=== PATIENT | male | born 1955 | race Caucasian/White ===

== ENCOUNTER 2017-12-17 14:53 | Outpatient (RCR) | payer BC, MEDICARE, SELFPAY ==
[2017-12-17 15:39] VITALS: BP 136/75; PULSE 82; RESP 16; TEMP 35.9; BMI 38.7
--- NOTE | 2017-12-17 16:53 | HP.PCM_ITS ---
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 Status: Acute Current Visit: Yes Code(s): L97.912 - Non-pressure chronic ulcer of unspecified part of right lower leg with fat layer exposed Comment: right lateral thigh (3) COPD (chronic obstructive pulmonary disease) Status: Acute Current Visit: Yes Code(s): J44.9 - Chronic obstructive pulmonary disease, unspecified (4) Hyperlipidemia Status: Acute Current Visit: Yes Code(s): E78.5 - Hyperlipidemia, unspecified (5) Hypothyroidism Status: Acute Current Visit: Yes Code(s): E03.9 - Hypothyroidism, unspecified (6) Tobacco abuse Status: Acute Current Visit: Yes Code(s): Z72.0 - Tobacco use History of Present Illness Date of Service: 12/17/17 Chief Complaint: Pressure ulcer to sacral region midline ?2 months and open blistered areas to right thigh intermittently for a couple of years History of Wound: This is a 62-year-old white male who presents to the wound healing center today with complaints of pressure ulcer to midline sacral region and intermittent blisters that open up on his right posterior thigh. He has a past medical history as listed above. The patient states that after having a recent back surgery and right knee arthroscopy, he has not been as ambulatory as before and has been spending the majority of his time in his reclining chair. He states that approximately 2 months ago he noted a sore area causing him pain on his sacral region and has been applying triple antibiotic ointment and an antiseptic rinse given by his PCP on it. He also complains of intermittent blistering that has happened on his buttocks and thigh area on and off for the past couple of years. He states that he has multiple sites that will open up as a blister, drain pus, and then heal over. He has not been seen by a national service officer for evaluation of this. He currently has 1 open blister on his right lateral thigh and states that pus was previously draining out of it but is no longer draining at this time. He denies any signs of systemic infection at this time. He denies any fever, chills, nausea, vomiting, shortness of breath, chest pain or pressure, syncope or presyncopal episode. Past Medical History Allergies/Adverse Reactions: Allergies dust Allergy (Uncoded 12/17/17 16:02) Unknown pollen Allergy (Uncoded 12/17/17 16:02) Unknown Home Medications: Ambulatory Orders Medication Instructions Recorded Acetaminophen [Tylenol] 650 mg PO TID 12/17/17 Baclofen [Lioresal] 10 mg PO TID 12/17/17 Esomeprazole Mag Trihydrate 40 mg PO DAILY 12/17/17 [Nexium] Fenofibrate [Tricor] 145 mg PO DAILY 12/17/17 Levothyroxine [Synthroid] 125 mcg PO DAILY 12/17/17 Tamsulosin HCl [Flomax] 0.4 mg PO BID 12/17/17 Smoking Status: Current every day smoker Review of Systems Constitutional: Denies: Chills, Fever, Weight Change Eyes: Denies: Pain, Vision Change HEENT: Denies: Difficulty Hearing, Difficulty Swallowing, Sinus Congestion Cardiovascular: Denies: Chest Pain, Palpitations Respiratory: Denies: Cough, Shortness of Breath Gastrointestinal: Denies: Diarrhea, Nausea, Vomiting Genitourinary: Denies: Dysuria, Hematuria Musculoskeletal: Reports: - - difficulty with ambulation d/t back pain and knee pain Skin: Reports: Wounds - see hpi Psychiatric: Denies: Anxiety, Depression Endocrine: Denies: Heat/ Cold Intolerance, Polydipsia, Polyuria Hematologic/ Lymphatic: Denies: Easy Bruising, Easy Bleeding - Physical Exam Vital Signs Temp Pulse Resp BP 96.6 F L 82 16 136/75 H 12/17/17 15:39 12/17/17 15:39 12/17/17 15:39 12/17/17 15:39 General: Alert, Oriented x3, Cooperative, No apparent distress HEENT: PERRLA, EOMI Lungs: Clear to auscultation, Normal air movement, No rhonchi, No wheeze, No rales, Diminished - in bases Cardiovascular: Regular rate, Regular Rhythm, Normal S1, Normal S2 Abdomen: Bowel Sounds Present, Soft, Non Tender, Non-Distended Extremities: No clubbing, No cyanosis, No edema, Peripheral Pulses Normal Skin: No rashes, No breakdown, Ulcer/ Wound - ulcer present midline sacral region stage 2 with adherant slough, no signs of infection at this time, no pus or drainage or foul smell noted, open blistered area to right lateral thigh, no purulent drainage, no erythema or signs of infection at this time. Wound Measurements and Assessment WC - Nurse 1 - General Ulcer Measurement Start: 12/17/17 15:39 Freq: Status: Active Protocol: Activity Type Activity Date Activity User E-Sign Co-Sign Detail Recorded Client Recorded Date Recorded By Document 12/17/17 15:39 [facility] [id number] 12/17/17 15:55 [facility] 12/17/17 15:39 Wound Center Nurse 1 [Ulcer Assessment] #3 right gluteal fold -Combined with other wound No -Current Size (cm) - Length 0.1 -Current Size (cm) - Width 0.1 -Current Size (cm) - Depth 0.1 -Total Square Cm 0.01 -Date of Last Picture (Recall this 12/17/17 field) -Photo Taken Yes -Epithelialization None Present -Tunneling No -Undermining/Tunneling No -Circular Undermining No -Exudate Amt Small (1-33%) -Exudate Type Purulent -Wound Margin Indistinct, Non -Visible -Granulation Amt None Present (0 %) -Granulation Quality N/A -Slough/Fibrin Yes -Necrosis Amt Large (67-100%) -Necrotic Tissue Type Adherent Slough -Texture (Michelle-wound Skin Appearance) Assessed Localized Edema -Moisture (Michelle-wound Skin Appearance Assessed ) Weeping -Color (Michelle-wound Skin Appearance) No Abnormality Assessed -Temperature (Michelle-wound Skin No Abnormality Appearance) (Pt Warm) -Tenderness on Palpation (Michelle-wound No Skin Appearance) -Ulcer Cleansing Rinsed/ Irrigated with Saline -Foul Odor after Cleansing No -Anesthetic Used 4% Lidocaine Solution #1 sacral ulcer -Combined with other wound No -Current Size (cm) - Length 1.0 -Current Size (cm) - Width 0.2 -Current Size (cm) - Depth 0.2 -Total Square Cm 0.20 -Date of Last Picture (Recall this 12/17/17 field) -Photo Taken Yes -Epithelialization None Present -Tunneling No -Undermining/Tunneling No -Circular Undermining No -Exudate Amt Small (1-33%) -Exudate Type Serosanguineous -Wound Margin Flat & Intact -Granulation Amt None Present (0 %) -Granulation Quality N/A -Slough/Fibrin Yes -Necrosis Amt Large (67-100%) -Necrotic Tissue Type Adherent Slough -Structure Exposed N/A -Texture (Michelle-wound Skin Appearance) Assessed Scarring -Moisture (Michelle-wound Skin Appearance Assessed ) Maceration -Color (Michelle-wound Skin Appearance) No Abnormality Assessed -Temperature (Michelle-wound Skin No Abnormality Appearance) (Pt Warm) -Tenderness on Palpation (Michelle-wound No Skin Appearance) -Ulcer Cleansing Rinsed/ Irrigated with Saline -Foul Odor after Cleansing No -Anesthetic Used 4% Lidocaine Solution #2 right hip -Combined with other wound No -Current Size (cm) - Length 0.1 -Current Size (cm) - Width 0.4 -Current Size (cm) - Depth 0.2 -Total Square Cm 0.04 -Date of Last Picture (Recall this 12/17/17 field) -Photo Taken Yes -Epithelialization None Present -Tunneling No -Undermining/Tunneling No -Circular Undermining No -Exudate Amt Small (1-33%) -Exudate Type Serosanguineous -Wound Margin Flat & Intact -Granulation Amt Large (67-100%) -Granulation Quality Red -Slough/Fibrin Yes -Necrosis Amt Small (1-33%) -Necrotic Tissue Type Adherent Slough -Structure Exposed N/A -Texture (Michelle-wound Skin Appearance) Assessed Scarring -Moisture (Michelle-wound Skin Appearance No Abnormality ) Assessed -Color (Michelle-wound Skin Appearance) No Abnormality Assessed -Temperature (Michelle-wound Skin No Abnormality Appearance) (Pt Warm) -Tenderness on Palpation (Michelle-wound No Skin Appearance) -Ulcer Cleansing Rinsed/ Irrigated with Saline -Foul Odor after Cleansing No -Anesthetic Used 4% Lidocaine Solution [Edema Assessment] -Lower Limb Edema Present No WC - Nurse 2 - General Ulcer CM Notes Start: 12/17/17 15:39 Freq: Status: Active Protocol: Activity Type Activity Date Activity User E-Sign Co-Sign Detail Recorded Client Recorded Date Recorded By Document 12/17/17 16:21 [id number] 12/17/17 16:32 12/17/17 16:21 Wound Center Nurse 2 [Procedure/Treatment] #3 right gluteal fold -Time 16:22 #1 sacral ulcer -Time 16:22 -Correct Patient Yes -Correct Side, Site, Position Yes -Correct Procedure Yes -Procedure Performed Yes -Type of Procedure Debridement -Clinical Debridement Subcutaneous -Post Debridement Size (cm) - Length 1 -Post Debridement Size (cm) - Width 0.4 -Post Debridement Size (cm) - Depth 0.3 -Total Square Cm 0.4 -Wound/Ulcer Outcome Not Healed -Ulcer Cleansing Not Cleansed -Foul Odor after Cleansing No -Bioengineered Tissue No -Bleeding Controlled with Pressure -Treatment Response Procedure Tolerated Well #2 right hip -Time 16:22 -Correct Patient Yes -Correct Side, Site, Position Yes -Correct Procedure Yes -Procedure Performed Yes -Type of Procedure Debridement -Clinical Debridement Subcutaneous -Post Debridement Size (cm) - Length 0.4 -Post Debridement Size (cm) - Width 0.4 -Post Debridement Size (cm) - Depth 0.6 -Total Square Cm 0.16 -Wound/Ulcer Outcome Not Healed -Ulcer Cleansing Not Cleansed -Foul Odor after Cleansing No -Bioengineered Tissue No -Bleeding Controlled with Pressure -Treatment Response Procedure Tolerated Well [See Physician Procedure note for Specifics] Pain Scale: 0-10 Numeric [Pain] -Is Patient Pain Free? Yes Musculoskeletal: Tenderness - back and knee Neurological: Neuro grossly intact Psych/Mental Status: Normal Affect, Appropriate, Alert and oriented to time, place, person, mood and affect Debridement Note Post-Debridement Measurements/Treatment WC - Nurse 2 - General Ulcer CM Notes Start: 12/17/17 15:39 Freq: Status: Active Protocol: Activity Type Activity Date Activity User E-Sign Co-Sign Detail Recorded Client Recorded Date Recorded By Document 12/17/17 16:21 [id number] 12/17/17 16:32 12/17/17 16:21 Wound Center Nurse 2 #3 right gluteal fold -Time 16:22 #1 sacral ulcer -Time 16:22 -Correct Patient Yes -Correct Side, Site, Position Yes -Correct Procedure Yes -Procedure Performed Yes -Type of Procedure Debridement -Clinical Debridement Subcutaneous -Post Debridement Size (cm) - Length 1 -Post Debridement Size (cm) - Width 0.4 -Post Debridement Size (cm) - Depth 0.3 -Total Square Cm 0.4 -Wound/Ulcer Outcome Not Healed -Ulcer Cleansing Not Cleansed -Foul Odor after Cleansing No -Bioengineered Tissue No -Bleeding Controlled with Pressure -Treatment Response Procedure Tolerated Well #2 right hip -Time 16:22 -Correct Patient Yes -Correct Side, Site, Position Yes -Correct Procedure Yes -Procedure Performed Yes -Type of Procedure Debridement -Clinical Debridement Subcutaneous -Post Debridement Size (cm) - Length 0.4 -Post Debridement Size (cm) - Width 0.4 -Post Debridement Size (cm) - Depth 0.6 -Total Square Cm 0.16 -Wound/Ulcer Outcome Not Healed -Ulcer Cleansing Not Cleansed -Foul Odor after Cleansing No -Bioengineered Tissue No -Bleeding Controlled with Pressure -Treatment Response Procedure Tolerated Well Pain Scale: 0-10 Numeric Is Patient Pain Free? Yes Wound debrided: stage 2 sacral pressure ulcer Type of Debridement: Excisional debridement Anesthesia Used: 5% Lidocaine Gel Depth: Down to and including healthy tissue, in the subcutaneous layer Percentage of wound debrided: 100 Instrument Used: 5mm curette Tissue Removed: slough and devitalized tissue Severity: Fat Layer Exposed Amount of bleeding with debridement: Mild Bleeding Controlled with: Pressure Patient tolerated procedure well - Additional Wound Wound debrided: right lateral thigh ulceration Laterality: Right Type of Debridement: Excisional debridement Anesthesia Used: 5% Lidocaine Gel Depth: Down to and including healthy tissue, in the subcutaneous layer Percentage of wound debrided: 100 Instrument Used: 3mm curette Tissue Removed: slough and devitalized tissue Severity: Fat Layer Exposed Amount of bleeding with debridement: Mild Bleeding Controlled with: Pressure Patient tolerated procedure: Patient tolerated procedure well Assessment/Plan Active Problems Stage II pressure ulcer of sacral region (Acute) 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 A subcutaneous debridement was performed today. The patient tolerated the procedure well. The patients wound care will consist of: Applying Nanda to both ulcerations with optifoam over the sacral pressure ulcer. Wound cultures were collected from the thigh ulcer. Baseline bloodwork will be held off at this time. Patient educated on the importance of diet on wound healing and instructed to increase protein and vitamin C intake. Discussed with patient the importance of offloading and different offloading interventions to do to remove pressure from the sacral region. Patient verbalized understanding. Patient is going to follow-up with dermatology regarding his chronic blisters that open in his buttock area and thigh and groin area at times. Differentials include hidradenitis suppurativa. Patient will follow up at wound healing center in one week or sooner if needed. This note was generated with [employer] dictation software. It may contain incorrect words, spelling, and punctuation that were not noted in checking the note before signing. Code Visit Office Visits / Consults: [id number] OV L4 New [id number]: [id number] Lillian subq tissue 20 sq cm/<
== END 2017-12-27 23:59 ==
LOC: WC 14:53
PROVIDERS: Visit Provider Nurse Practitioner Family
DX: L89.152 Pressure ulcer of sacral region, stage 2 (principal); J44.9 Chronic obstructive pulmonary disease, unspecified; E78.5 Hyperlipidemia, unspecified; E03.9 Hypothyroidism, unspecified; F17.200 Nicotine dependence, unspecified, uncomplicated; L97.112 Non-pressure chronic ulcer of right thigh with fat layer exposed; Z79.899 Other long term (current) drug therapy
CPT/HCPCS: 11042; 87070; 87075; 87205; 99205; G0463

== ENCOUNTER 2018-01-21 15:30 | Outpatient (RCR) | payer BC, MEDICARE, SELFPAY ==
[2017-12-28 01:38] VITALS: BP 136/75; PULSE 82; RESP 16; TEMP 35.9
[2017-12-31 16:08] VITALS: BP 129/72; PULSE 78; RESP 18; TEMP 36.6
--- NOTE | 2017-12-31 20:22 | PCM.WC.PN ---
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 Status: Acute Code(s): L97.522 - Non-pressure chronic ulcer of other part of left foot with fat layer exposed (2) Stage II pressure ulcer of sacral region Status: Acute Code(s): L89.152 - Pressure ulcer of sacral region, stage 2 (3) COPD (chronic obstructive pulmonary disease) Status: Acute Code(s): J44.9 - Chronic obstructive pulmonary disease, unspecified (4) Hyperlipidemia Status: Acute Code(s): E78.5 - Hyperlipidemia, unspecified (5) Hypothyroidism Status: Acute Code(s): E03.9 - Hypothyroidism, unspecified (6) Tobacco abuse Status: Acute Code(s): Z72.0 - Tobacco use Type of Wound Chief Complaint: Pressure ulcer to sacral region midline ?2 months and open blistered areas to right thigh intermittently for a couple of years, left lower extremity dorsal foot nonhealing ulcer times a couple months History of Wound: This is a 62-year-old white male who presents to the wound healing center today with complaints of pressure ulcer to midline sacral region and intermittent blisters that open up on his right posterior thigh. He has a past medical history as listed above. The patient states that after having a recent back surgery and right knee arthroscopy, he has not been as ambulatory as before and has been spending the majority of his time in his reclining chair. He states that approximately 2 months ago he noted a sore area causing him pain on his sacral region and has been applying triple antibiotic ointment and an antiseptic rinse given by his PCP on it. He also complains of intermittent blistering that has happened on his buttocks and thigh area on and off for the past couple of years. He states that he has multiple sites that will open up as a blister, drain pus, and then heal over. He has not been seen by a assisted sales representative for evaluation of this. He currently has 1 open blister on his right lateral thigh and states that pus was previously draining out of it but is no longer draining at this time. He denies any signs of systemic infection at this time. He denies any fever, chills, nausea, vomiting, shortness of breath, chest pain or pressure, syncope or presyncopal episode. Progress of Wound: Patient's pressure ulcer stage II on his coccyx is improving in size, he did miss his last appointment. He does have a new nonhealing ulcer on his left lower extremity on the dorsal foot, he states that this is been going on for months and he forgot to bring this up during his last visit, he is unsure how it happened and has not been using anything for wound care. - Physical Exam Vital Signs Temp Pulse Resp BP 97.8 F 78 18 129/72 H 12/31/17 16:08 12/31/17 16:08 12/31/17 16:08 12/31/17 16:08 General: Alert, Oriented x3, Cooperative, No apparent distress HEENT: Atraumatic Cardiovascular: Regular rate Extremities: No clubbing, No cyanosis, No edema Skin: Ulcer/ Wound - Ulcer present stage II on coccyx with adherent slough, no signs of infection, right hip almost entirely healed, no signs of infection, left lower extremity dorsal foot nonhealing ulcer with adherent slough, wound bed is slightly erythematous less than 0.2 cm extending from the wound edges, mild serous discharge, no other signs of infection at this time. Neurological: Neuro grossly intact Psych/Mental Status: Normal Affect, Appropriate, Alert and oriented to time, place, person, mood and affect Debridement Note Post-Debridement Measurements/Treatment WC - Nurse 2 - General Ulcer CM Notes Start: 12/31/17 16:08 Freq: Status: Active Protocol: Activity Type Activity Date Activity User E-Sign Co-Sign Detail Recorded Client Recorded Date Recorded By Document 12/31/17 16:45 [id number] 12/31/17 16:53 12/31/17 16:45 Wound Center Nurse 2 #3- LT LAT FOOT -Time 16:45 -Correct Patient Yes -Correct Side, Site, Position Yes -Correct Procedure Yes -Procedure Performed Yes -Type of Procedure Debridement -Clinical Debridement Subcutaneous -Post Debridement Size (cm) - Length 0.9 -Post Debridement Size (cm) - Width 0.6 -Post Debridement Size (cm) - Depth 0.8 -Total Square Cm 0.54 -Wound/Ulcer Outcome Not Healed -Ulcer Cleansing Not Cleansed -Foul Odor after Cleansing No -Bioengineered Tissue No -Bleeding Controlled with Pressure -Treatment Response Procedure Tolerated Well #1 sacral ulcer -Time 16:45 -Correct Patient Yes -Correct Side, Site, Position Yes -Correct Procedure Yes -Procedure Performed Yes -Type of Procedure Debridement -Clinical Debridement Subcutaneous -Post Debridement Size (cm) - Length 0.7 -Post Debridement Size (cm) - Width 0.3 -Post Debridement Size (cm) - Depth 0.2 -Total Square Cm 0.21 -Wound/Ulcer Outcome Not Healed -Ulcer Cleansing Not Cleansed -Foul Odor after Cleansing No -Bioengineered Tissue No -Treatment Response Procedure Tolerated Well #2 right hip -Time 16:51 -Correct Patient No -Correct Side, Site, Position No -Correct Procedure No -Procedure Performed No -Post Debridement Size (cm) - Length 0.1 -Post Debridement Size (cm) - Width 0.1 -Post Debridement Size (cm) - Depth 0.1 -Total Square Cm 0.01 -Wound/Ulcer Outcome Not Healed -Ulcer Cleansing Not Cleansed -Foul Odor after Cleansing No -Bioengineered Tissue No Pain Scale: 0-10 Numeric Is Patient Pain Free? Yes Wound debrided: Stage II pressure ulcer coccyx Type of Debridement: Excisional debridement Anesthesia Used: 5% Lidocaine Gel Depth: in the subcutaneous layer Percentage of wound debrided: 100 Instrument Used: 3mm curette Tissue Removed: Slough and devitalized tissue Severity: Fat Layer Exposed Amount of bleeding with debridement: Mild Bleeding Controlled with: Pressure Patient tolerated procedure well - Additional Wound Wound debrided: Nonhealing ulcer left lower extremity dorsal foot Laterality: Left Type of Debridement: Excisional debridement Anesthesia Used: 5% Lidocaine Gel Depth: in the subcutaneous layer Percentage of wound debrided: 100 Instrument Used: 3mm curette Tissue Removed: Slough and devitalized tissue Severity: Fat Layer Exposed Amount of bleeding with debridement: Mild Bleeding Controlled with: Pressure Patient tolerated procedure: Patient tolerated procedure well Assessment/Plan Assessment: see above diagnoses Plan: The patient was seen and examined at the wound center today and was updated on the plan of care. A subcutaneous debridement was performed today. The patient tolerated the procedure well. The patients wound care will consist of: Applying Nanda to both ulcerations with optifoam over the sacral pressure ulcer. Wound cultures were collected from the thigh ulcer previously and negative, repeat cultures were ordered to the new left dorsal foot ulcer. Baseline bloodwork will be held off at this time. Hold off on vascular at this time. Patient educated on the importance of diet on wound healing and instructed to increase protein and vitamin C intake. Discussed with patient the importance of offloading and different offloading interventions to do to remove pressure from the sacral region. Patient verbalized understanding. Patient is going to follow-up with dermatology regarding his chronic blisters that open in his buttock area and thigh and groin area at times. Differentials include hidradenitis suppurativa. Patient will follow up at wound healing center in one week or sooner if needed. This note was generated with [employer] dictation software. It may contain incorrect words, spelling, and punctuation that were not noted in checking the note before signing. Code Visit [id number]: [id number] Lillian subq tissue 20 sq cm/<
[2018-01-07 15:48] VITALS: BP 119/71; PULSE 85; RESP 18; TEMP 36.7
--- NOTE | 2018-01-07 19:49 | PCM.WC.PN ---
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 Status: Acute Code(s): L97.522 - Non-pressure chronic ulcer of other part of left foot with fat layer exposed (2) Stage II pressure ulcer of sacral region Status: Acute Code(s): L89.152 - Pressure ulcer of sacral region, stage 2 (3) COPD (chronic obstructive pulmonary disease) Status: Acute Code(s): J44.9 - Chronic obstructive pulmonary disease, unspecified (4) Hyperlipidemia Status: Acute Code(s): E78.5 - Hyperlipidemia, unspecified (5) Hypothyroidism Status: Acute Code(s): E03.9 - Hypothyroidism, unspecified (6) Tobacco abuse Status: Acute Code(s): Z72.0 - Tobacco use Type of Wound Date of Service: 01/07/18 Chief Complaint: Pressure ulcer to sacral region midline ?2 months and open blistered areas to right thigh intermittently for a couple of years, left lower extremity dorsal foot nonhealing ulcer times a couple months History of Wound: This is a 62-year-old white male who presents to the wound healing center today with complaints of pressure ulcer to midline sacral region and intermittent blisters that open up on his right posterior thigh. He has a past medical history as listed above. The patient states that after having a recent back surgery and right knee arthroscopy, he has not been as ambulatory as before and has been spending the majority of his time in his reclining chair. He states that approximately 2 months ago he noted a sore area causing him pain on his sacral region and has been applying triple antibiotic ointment and an antiseptic rinse given by his PCP on it. He also complains of intermittent blistering that has happened on his buttocks and thigh area on and off for the past couple of years. He states that he has multiple sites that will open up as a blister, drain pus, and then heal over. He has not been seen by a fit model for evaluation of this. He currently has 1 open blister on his right lateral thigh and states that pus was previously draining out of it but is no longer draining at this time. He denies any signs of systemic infection at this time. He denies any fever, chills, nausea, vomiting, shortness of breath, chest pain or pressure, syncope or presyncopal episode. Progress of Wound: Patient's pressure ulcer stage II on his sacrum is stable, has not been compliant with offloading or smoking cessation. His nonhealing ulcer on his left lower extremity on the dorsal foot is stable, doign well with the ted. Cultures showed staph, so patient was started on a course of doxy. He does continue to have multiple pinpoint ulcerations on his buttocks and thighs most likely secondary to hidradenitis suppurativa which has been a chronic ongoing issue for him and patient has yet to be evaluated by Derm. He states that at times purulent discharge continues to drain from the sites. - Physical Exam Vital Signs Temp Pulse Resp BP 98.0 F 85 18 119/71 01/07/18 15:48 01/07/18 15:48 01/07/18 15:48 01/07/18 15:48 General: Alert, Oriented x3, Cooperative, No apparent distress HEENT: Atraumatic Cardiovascular: Regular rate Abdomen: Obese Extremities: No clubbing, No cyanosis, Diminished Peripheral Pulses, Edema - generalized BLLE edema Skin: Ulcer/ Wound - Ulceration present left dorsal foot with slough and devitalized tissue present, slightly macerated wound edges, pressure ulcer present mid sacrum, adherent slough present to the wound bed edges, multiple pinpoint ulcerations with deph varying from 0.5-1 cm most likely secondary to hidradenitis suppurativa present right hip and buttocks, no fluctuance or drainage noted at this time Musculoskeletal: No Muscle Wasting Neurological: Neuro grossly intact Psych/Mental Status: Normal Affect, Appropriate, Alert and oriented to time, place, person, mood and affect Debridement Note Post-Debridement Measurements/Treatment WC - Nurse 2 - General Ulcer CM Notes Start: 12/31/17 16:08 Freq: Status: Active Protocol: Activity Type Activity Date Activity User E-Sign Co-Sign Detail Recorded Client Recorded Date Recorded By Document 12/31/17 16:45 CS [id number] 12/31/17 16:53 CS Document 01/07/18 17:19 JS [id number] 01/07/18 17:29 JS 12/31/17 01/07/18 16:45 17:19 Wound Center Nurse 2 #4 R-iSCHIAL ULCER -Time 17:29 -Correct Patient Yes -Correct Side, Site, Position Yes -Correct Procedure Yes -Procedure Performed Yes -Type of Procedure Debridement -Clinical Debridement Subcutaneous -Post Debridement Size (cm) - Length 0.1 -Post Debridement Size (cm) - Width 0.1 -Post Debridement Size (cm) - Depth 1.0 -Total Square Cm 0.01 -Wound/Ulcer Outcome Not Healed -Ulcer Cleansing Rinsed/ Irrigated with Saline -Foul Odor after Cleansing No -Bioengineered Tissue No -Topical Lidocaine (%) 4 -Lidocaine (ml) 5 -Bleeding Controlled with NA -Treatment Response Procedure Tolerated Well #3- LT LAT FOOT -Time 16:45 17:25 -Correct Patient Yes Yes -Correct Side, Site, Position Yes Yes -Correct Procedure Yes Yes -Procedure Performed Yes Yes -Type of Procedure Debridement Debridement -Clinical Debridement Subcutaneous Subcutaneous -Post Debridement Size (cm) - Length 0.9 0.5 -Post Debridement Size (cm) - Width 0.6 0.4 -Post Debridement Size (cm) - Depth 0.8 0.5 -Total Square Cm 0.54 0.20 -Wound/Ulcer Outcome Not Healed Not Healed -Ulcer Cleansing Not Cleansed Rinsed/ Irrigated with Saline -Foul Odor after Cleansing No No -Bioengineered Tissue No No -Topical Lidocaine (%) 4 -Lidocaine (ml) 5 -Bleeding Controlled with Pressure NA -Treatment Response Procedure Procedure Tolerated Well Tolerated Well #1 sacral ulcer -Time 16:45 17:19 -Correct Patient Yes Yes -Correct Side, Site, Position Yes Yes -Correct Procedure Yes Yes -Procedure Performed Yes Yes -Type of Procedure Debridement Debridement -Clinical Debridement Subcutaneous Subcutaneous -Post Debridement Size (cm) - Length 0.7 0.9 -Post Debridement Size (cm) - Width 0.3 0.3 -Post Debridement Size (cm) - Depth 0.2 0.3 -Total Square Cm 0.21 0.27 -Wound/Ulcer Outcome Not Healed Not Healed -Ulcer Cleansing Not Cleansed Rinsed/ Irrigated with Saline -Foul Odor after Cleansing No No -Bioengineered Tissue No No -Topical Lidocaine (%) 4 -Bleeding Controlled with NA -Treatment Response Procedure Procedure Tolerated Well Tolerated Well #2 right hip -Time 16:51 17:20 -Correct Patient No Yes -Correct Side, Site, Position No Yes -Correct Procedure No Yes -Procedure Performed No Yes -Type of Procedure Debridement -Clinical Debridement Subcutaneous -Post Debridement Size (cm) - Length 0.1 0.3 -Post Debridement Size (cm) - Width 0.1 0.1 -Post Debridement Size (cm) - Depth 0.1 1.0 -Total Square Cm 0.01 0.03 -Wound/Ulcer Outcome Not Healed Not Healed -Ulcer Cleansing Not Cleansed Rinsed/ Irrigated with Saline -Foul Odor after Cleansing No No -Bioengineered Tissue No No -Topical Lidocaine (%) 4 -Bleeding Controlled with NA -Treatment Response Procedure Tolerated Well Pain Scale: 0-10 Numeric Is Patient Pain Free? Yes Yes Wound debrided: Left lateral foot ulcer Laterality: Left Type of Debridement: Excisional debridement Anesthesia Used: 5% Lidocaine Gel Depth: in the subcutaneous layer Percentage of wound debrided: 100 Instrument Used: 3mm curette Tissue Removed: Slough and devitalized tissue Severity: Fat Layer Exposed Amount of bleeding with debridement: Mild Bleeding Controlled with: Pressure Patient tolerated procedure well - Additional Wound Wound debrided: Stage II sacral pressure ulcer Type of Debridement: Excisional debridement Anesthesia Used: 5% Lidocaine Gel Depth: in the subcutaneous layer Percentage of wound debrided: 100 Instrument Used: 3mm curette Tissue Removed: Slough and devitalized tissue Severity: Fat Layer Exposed Amount of bleeding with debridement: Mild Bleeding Controlled with: Pressure - Additional Wound Wound debrided: Ulcerations of right hip and right ischium Type of Debridement: Excisional debridement Anesthesia Used: 5% Lidocaine Gel Depth: in the subcutaneous layer Percentage of wound debrided: 100 Instrument Used: 3mm curette Tissue Removed: Slough and devitalized tissue Severity: Fat Layer Exposed Amount of bleeding with debridement: Mild Bleeding Controlled with: Pressure Patient tolerated procedure: Patient tolerated procedure well Assessment/Plan Assessment: see above diagnoses Plan: The patient was seen and examined at the wound center today and was updated on the plan of care. A subcutaneous debridement was performed today. The patient tolerated the procedure well. The patients wound care will consist of: Applying Ted to both ulcerations with optifoam over the sacral pressure ulcer. Wound cultures were collected from the thigh ulcer previously and negative, repeat cultures were ordered to the new left dorsal foot ulcer and demonstrated staph, patient will be treated with a course of doxycycline. Baseline bloodwork will be considered at next visit. Hold off on vascular at this time may consider at next visit if delayed wound healing. Patient educated on the importance of diet on wound healing and instructed to increase protein and vitamin C intake. Discussed with patient the importance of offloading and different offloading interventions to do to remove pressure from the sacral region. Patient verbalized understanding. Patient is going to follow-up with dermatology regarding his chronic blisters that open in his buttock area and thigh and groin area at times. Differentials include hidradenitis suppurativa. Patient will follow up at wound healing center in 2 week or sooner if needed. Encouraged smoking cessation again. This note was generated with [employer] dictation software. It may contain incorrect words, spelling, and punctuation that were not noted in checking the note before signing. Code Visit 111xxx-113xx: 60511 Lillian subq tissue 20 sq cm/<
--- NOTE | 2018-01-13 10:54 | PN.PCM_ITS ---
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 Status: Acute Code(s): L97.522 - Non-pressure chronic ulcer of other part of left foot with fat layer exposed (2) Stage II pressure ulcer of sacral region Status: Acute Code(s): L89.152 - Pressure ulcer of sacral region, stage 2 (3) COPD (chronic obstructive pulmonary disease) Status: Acute Code(s): J44.9 - Chronic obstructive pulmonary disease, unspecified (4) Hyperlipidemia Status: Acute Code(s): E78.5 - Hyperlipidemia, unspecified (5) Hypothyroidism Status: Acute Code(s): E03.9 - Hypothyroidism, unspecified (6) Tobacco abuse Status: Acute Code(s): Z72.0 - Tobacco use Type of Wound Date of Service: 01/07/18 Chief Complaint: Pressure ulcer to sacral region midline ?2 months and open blistered areas to right thigh intermittently for a couple of years, left lower extremity dorsal foot nonhealing ulcer times a couple months History of Wound: This is a 62-year-old white male who presents to the wound healing center today with complaints of pressure ulcer to midline sacral region and intermittent blisters that open up on his right posterior thigh. He has a past medical history as listed above. The patient states that after having a recent back surgery and right knee arthroscopy, he has not been as ambulatory as before and has been spending the majority of his time in his reclining chair. He states that approximately 2 months ago he noted a sore area causing him pain on his sacral region and has been applying triple antibiotic ointment and an antiseptic rinse given by his PCP on it. He also complains of intermittent blistering that has happened on his buttocks and thigh area on and off for the past couple of years. He states that he has multiple sites that will open up as a blister, drain pus, and then heal over. He has not been seen by a food crops farm hand for evaluation of this. He currently has 1 open blister on his right lateral thigh and states that pus was previously draining out of it but is no longer draining at this time. He denies any signs of systemic infection at this time. He denies any fever, chills, nausea, vomiting, shortness of breath, chest pain or pressure, syncope or presyncopal episode. Progress of Wound: Patient's pressure ulcer stage II on his sacrum is stable, has not been compliant with offloading or smoking cessation. His nonhealing ulcer on his left lower extremity on the dorsal foot is stable, doign well with the ted. Cultures showed staph, so patient was started on a course of doxy. He does continue to have multiple pinpoint ulcerations on his buttocks and thighs most likely secondary to hidradenitis suppurativa which has been a chronic ongoing issue for him and patient has yet to be evaluated by Derm. He states that at times purulent discharge continues to drain from the sites. - Physical Exam Vital Signs Temp Pulse Resp BP 98.0 F 85 18 119/71 01/07/18 15:48 01/07/18 15:48 01/07/18 15:48 01/07/18 15:48 General: Alert, Oriented x3, Cooperative, No apparent distress HEENT: Atraumatic Cardiovascular: Regular rate Abdomen: Obese Extremities: No clubbing, No cyanosis, Diminished Peripheral Pulses, Edema - generalized BLLE edema Skin: Ulcer/ Wound - Ulceration present left dorsal foot with slough and neri talized tissue present, slightly macerated wound edges, pressure ulcer present mid sacrum, adherent slough present to the wound bed edges, multiple pinpoint ulcerations with deph varying from 0.5-1 cm most likely secondary to hidradenitis suppurativa present right hip and buttocks, no fluctuance or drainage noted at this time Musculoskeletal: No Muscle Wasting Neurological: Neuro grossly intact Psych/Mental Status: Normal Affect, Appropriate, Alert and oriented to time, place, person, mood and affect Debridement Note Post-Debridement Measurements/Treatment WC - Nurse 2 - General Ulcer CM Notes Start: 12/31/17 16:08 Freq: Status: Active Protocol: Activity Type Activity Date Activity User E-Sign Co-Sign Detail Recorded Client Recorded Date Recorded By Document 12/31/17 16:45 CS [id number] 12/31/17 16:53 CS Document 01/07/18 17:19 JS [id number] 01/07/18 17:29 JS 12/31/17 01/07/18 16:45 17:19 Wound Center Nurse 2 #4 R-iSCHIAL ULCER -Time 17:29 -Correct Patient Yes -Correct Side, Site, Position Yes -Correct Procedure Yes -Procedure Performed Yes -Type of Procedure Debridement -Clinical Debridement Subcutaneous -Post Debridement Size (cm) - Length 0.1 -Post Debridement Size (cm) - Width 0.1 -Post Debridement Size (cm) - Depth 1.0 -Total Square Cm 0.01 -Wound/Ulcer Outcome Not Healed -Ulcer Cleansing Rinsed/ Irrigated with Saline -Foul Odor after Cleansing No -Bioengineered Tissue No -Topical Lidocaine (%) 4 -Lidocaine (ml) 5 -Bleeding Controlled with NA -Treatment Response Procedure Tolerated Well #3- LT LAT FOOT -Time 16:45 17:25 -Correct Patient Yes Yes -Correct Side, Site, Position Yes Yes -Correct Procedure Yes Yes -Procedure Performed Yes Yes -Type of Procedure Debridement Debridement -Clinical Debridement Subcutaneous Subcutaneous -Post Debridement Size (cm) - Length 0.9 0.5 -Post Debridement Size (cm) - Width 0.6 0.4 -Post Debridement Size (cm) - Depth 0.8 0.5 -Total Square Cm 0.54 0.20 -Wound/Ulcer Outcome Not Healed Not Healed -Ulcer Cleansing Not Cleansed Rinsed/ Irrigated with Saline -Foul Odor after Cleansing No No -Bioengineered Tissue No No -Topical Lidocaine (%) 4 -Lidocaine (ml) 5 -Bleeding Controlled with Pressure NA -Treatment Response Procedure Procedure Tolerated Well Tolerated Well #1 sacral ulcer -Time 16:45 17:19 -Correct Patient Yes Yes -Correct Side, Site, Position Yes Yes -Correct Procedure Yes Yes -Procedure Performed Yes Yes -Type of Procedure Debridement Debridement -Clinical Debridement Subcutaneous Subcutaneous -Post Debridement Size (cm) - Length 0.7 0.9 -Post Debridement Size (cm) - Width 0.3 0.3 -Post Debridement Size (cm) - Depth 0.2 0.3 -Total Square Cm 0.21 0.27 -Wound/Ulcer Outcome Not Healed Not Healed -Ulcer Cleansing Not Cleansed Rinsed/ Irrigated with Saline -Foul Odor after Cleansing No No -Bioengineered Tissue No No -Topical Lidocaine (%) 4 -Bleeding Controlled with NA -Treatment Response Procedure Procedure Tolerated Well Tolerated Well #2 right hip -Time 16:51 17:20 -Correct Patient No Yes -Correct Side, Site, Position No Yes -Correct Procedure No Yes -Procedure Performed No Yes -Type of Procedure Debridement -Clinical Debridement Subcutaneous -Post Debridement Size (cm) - Length 0.1 0.3 -Post Debridement Size (cm) - Width 0.1 0.1 -Post Debridement Size (cm) - Depth 0.1 1.0 -Total Square Cm 0.01 0.03 -Wound/Ulcer Outcome Not Healed Not Healed -Ulcer Cleansing Not Cleansed Rinsed/ Irrigated with Saline -Foul Odor after Cleansing No No -Bioengineered Tissue No No -Topical Lidocaine (%) 4 -Bleeding Controlled with NA -Treatment Response Procedure Tolerated Well Pain Scale: 0-10 Numeric Is Patient Pain Free? Yes Yes Wound debrided: Left lateral foot ulcer Laterality: Left Type of Debridement: Excisional debridement Anesthesia Used: 5% Lidocaine Gel Depth: in the subcutaneous layer Percentage of wound debrided: 100 Instrument Used: 3mm curette Tissue Removed: Slough and devitalized tissue Severity: Fat Layer Exposed Amount of bleeding with debridement: Mild Bleeding Controlled with: Pressure Patient tolerated procedure well - Additional Wound Wound debrided: Stage II sacral pressure ulcer Type of Debridement: Excisional debridement Anesthesia Used: 5% Lidocaine Gel Depth: in the subcutaneous layer Percentage of wound debrided: 100 Instrument Used: 3mm curette Tissue Removed: Slough and devitalized tissue Severity: Fat Layer Exposed Amount of bleeding with debridement: Mild Bleeding Controlled with: Pressure - Additional Wound Wound debrided: Ulcerations of right hip and right ischium Type of Debridement: Excisional debridement Anesthesia Used: 5% Lidocaine Gel Depth: in the subcutaneous layer Percentage of wound debrided: 100 Instrument Used: 3mm curette Tissue Removed: Slough and devitalized tissue Severity: Fat Layer Exposed Amount of bleeding with debridement: Mild Bleeding Controlled with: Pressure Patient tolerated procedure: Patient tolerated procedure well Assessment/Plan Assessment: see above diagnoses Plan: The patient was seen and examined at the wound center today and was updated on the plan of care. A subcutaneous debridement was performed today. The patient tolerated the procedure well. The patients wound care will consist of: Applying Ted to both ulcerations with optifoam over the sacral pressure ulcer. Wound cultures were collected from the thigh ulcer previously and negative, repeat cultures were ordered to the new left dorsal foot ulcer and demonstrated staph, patient will be treated with a course of doxycycline. Baseline bloodwork will be considered at next visit. Hold off on vascular at this time may consider at next visit if delayed wound healing. Patient educated on the importance of diet on wound healing and instructed to increase protein a nd vitamin C intake. Discussed with patient the importance of offloading and different offloading interventions to do to remove pressure from the sacral region. Patient verbalized understanding. Patient is going to follow-up with dermatology regarding his chronic blisters that open in his buttock area and thigh and groin area at times. Differentials include hidradenitis suppurativa. Patient will follow up at wound healing center in 2 week or sooner if needed. Encouraged smoking cessation again. This note was generated with [employer] dictation software. It may contain incorrect words, spelling, and punctuation that were not noted in checking the note before signing. Code Visit 111xxx-[id number]: 54827 Lillian subq tissue 20 sq cm/<
[2018-01-21 16:03] VITALS: BP 125/69; PULSE 79; RESP 18; TEMP 36.3
--- NOTE | 2018-01-27 13:51 | PN.PCM_ITS ---
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 Status: Acute Code(s): L97.522 - Non-pressure chronic ulcer of other part of left foot with fat layer exposed (2) Stage II pressure ulcer of sacral region Status: Acute Code(s): L89.152 - Pressure ulcer of sacral region, stage 2 (3) COPD (chronic obstructive pulmonary disease) Status: Acute Code(s): J44.9 - Chronic obstructive pulmonary disease, unspecified (4) Hyperlipidemia Status: Acute Code(s): E78.5 - Hyperlipidemia, unspecified (5) Hypothyroidism Status: Acute Code(s): E03.9 - Hypothyroidism, unspecified (6) Tobacco abuse Status: Acute Code(s): Z72.0 - Tobacco use Type of Wound Date of Service: 01/21/18 Chief Complaint: Pressure ulcer to sacral region midline ?2 months and open blistered areas to right thigh intermittently for a couple of years, left lower extremity dorsal foot nonhealing ulcer times a couple months History of Wound: This is a 62-year-old white male who presents to the wound healing center today with complaints of pressure ulcer to midline sacral region and intermittent blisters that open up on his right posterior thigh. He has a past medical history as listed above. The patient states that after having a recent back surgery and right knee arthroscopy, he has not been as ambulatory as before and has been spending the majority of his time in his reclining chair. He states that approximately 2 months ago he noted a sore area causing him pain on his sacral region and has been applying triple antibiotic ointment and an antiseptic rinse given by his PCP on it. He also complains of intermittent blistering that has happened on his buttocks and thigh area on and off for the past couple of years. He states that he has multiple sites that will open up as a blister, drain pus, and then heal over. He has not been seen by a [place] attorney for evaluation of this. He currently has 1 open blister on his right lateral thigh and states that pus was previously draining out of it but is no longer draining at this time. He denies any signs of systemic infection at this time. He denies any fever, chills, nausea, vomiting, shortness of breath, chest pain or pressure, syncope or presyncopal episode. Progress of Wound: Patient's pressure ulcer stage II on his sacrum is stable, has not been compliant with offloading or smoking cessation. His nonhealing ulcer on his left lower extremity on the dorsal foot has improved, doing well with the ted. Cultures showed staph previously, so patient was started on a course of doxy, 4 additional days were called to his pharmacy. He does continue to have multiple pinpoint ulcerations on his buttocks and thighs most likely secondary to hidradenitis suppurativa which has been a chronic ongoing issue for him and patient has yet to be evaluated by Derm. He states that at times purulent discharge continues to drain from the sites, however, he notes that symptomatically, since taking the antibiotic his drainage and symptoms have improved. - Physical Exam Vital Signs Temp Pulse Resp BP 97.3 F L 79 18 125/69 H 01/21/18 16:03 01/21/18 16:03 01/21/18 16:03 01/21/18 16:03 General: Alert, Oriented x3, Cooperative, No apparent distress HEENT: Atraumatic Cardiovascular: Regular rate Abdomen: Obese Extremities: Diminished Peripheral Pulses, Edema - Generalized bilateral lower extremity edema Skin: Ulcer/ Wound - Ulceration present left foot with adherent slough, size is smaller, no surrounding erythema, malodor, or drainage, stage II pressure ulcer on sacrum with adherent slough, no signs of infection., - - Multiple pinpoint areas in groin and buttocks present without purulent drainage this week. Neurological: Neuro grossly intact Psych/Mental Status: Normal Affect, Appropriate, Alert and oriented to time, place, person, mood and affect Debridement Note Post-Debridement Measurements/Treatment WC - Nurse 2 - General Ulcer CM Notes Start: 12/31/17 16:08 Freq: Status: Active Protocol: Activity Type Activity Date Activity User E-Sign Co-Sign Detail Recorded Client Recorded Date Recorded By Document 12/31/17 16:45 CS [id number] 12/31/17 16:53 CS Document 01/07/18 17:19 JS [id number] 01/07/18 17:29 JS Document 01/21/18 16:44 DV [id number] 01/21/18 16:46 DV 12/31/17 01/07/18 01/21/18 16:45 17:19 16:44 Wound Center Nurse 2 #4 R-iSCHIAL ULCER -Time 17:29 -Correct Patient Yes -Correct Side, Site, Position Yes -Correct Procedure Yes -Procedure Performed Yes -Type of Procedure Debridement -Clinical Debridement Subcutaneous -Post Debridement Size (cm) - Length 0.1 -Post Debridement Size (cm) - Width 0.1 -Post Debridement Size (cm) - Depth 1.0 -Total Square Cm 0.01 -Wound/Ulcer Outcome Not Healed -Ulcer Cleansing Rinsed/ Irrigated with Saline -Foul Odor after Cleansing No -Bioengineered Tissue No -Topical Lidocaine (%) 4 -Lidocaine (ml) 5 -Bleeding Controlled with NA -Treatment Response Procedure Tolerated Well #3- LT LAT FOOT -Time 16:45 17:25 16:45 -Correct Patient Yes Yes Yes -Correct Side, Site, Position Yes Yes Yes -Correct Procedure Yes Yes Yes -Procedure Performed Yes Yes Yes -Type of Procedure Debridement Debridement Debridement -Clinical Debridement Subcutaneous Subcutaneous Subcutaneous -Post Debridement Size (cm) - Length 0.9 0.5 0.4 -Post Debridement Size (cm) - Width 0.6 0.4 0.3 -Post Debridement Size (cm) - Depth 0.8 0.5 0.4 -Total Square Cm 0.54 0.20 0.12 -Wound/Ulcer Outcome Not Healed Not Healed Not Healed -Ulcer Cleansing Not Cleansed Rinsed/ Rinsed/ Irrigated with Irrigated with Saline Saline -Foul Odor after Cleansing No No No -Bioengineered Tissue No No No -Topical Lidocaine (%) 4 -Lidocaine (ml) 5 -Bleeding Controlled with Pressure NA Pressure -Treatment Response Procedure Procedure Procedure Tolerated Well Tolerated Well Tolerated Well #1 sacral ulcer -Time 16:45 17:19 16:45 -Correct Patient Yes Yes Yes -Correct Side, Site, Position Yes Yes Yes -Correct Procedure Yes Yes Yes -Procedure Performed Yes Yes Yes -Type of Procedure Debridement Debridement Debridement -Clinical Debridement Subcutaneous Subcutaneous Subcutaneous -Post Debridement Size (cm) - Length 0.7 0.9 0.8 -Post Debridement Size (cm) - Width 0.3 0.3 0.3 -Post Debridement Size (cm) - Depth 0.2 0.3 0.2 -Total Square Cm 0.21 0.27 0.24 -Wound/Ulcer Outcome Not Healed Not Healed Not Healed -Ulcer Cleansing Not Cleansed Rinsed/ Rinsed/ Irrigated with Irrigated with Saline Saline -Foul Odor after Cleansing No No No -Bioengineered Tissue No No No -Topical Lidocaine (%) 4 -Bleeding Controlled with NA Pressure -Treatment Response Procedure Procedure Procedure Tolerated Well Tolerated Well Tolerated Well #2 right hip -Time 16:51 17:20 -Correct Patient No Yes -Correct Side, Site, Position No Yes -Correct Procedure No Yes -Procedure Performed No Yes -Type of Procedure Debridement -Clinical Debridement Subcutaneous -Post Debridement Size (cm) - Length 0.1 0.3 -Post Debridement Size (cm) - Width 0.1 0.1 -Post Debridement Size (cm) - Depth 0.1 1.0 -Total Square Cm 0.01 0.03 -Wound/Ulcer Outcome Not Healed Not Healed -Ulcer Cleansing Not Cleansed Rinsed/ Irrigated with Saline -Foul Odor after Cleansing No No -Bioengineered Tissue No No -Topical Lidocaine (%) 4 -Bleeding Controlled with NA -Treatment Response Procedure Tolerated Well Pain Scale: 0-10 Numeric Is Patient Pain Free? Yes Yes Yes Wound debrided: Stage II pressure ulcer sacrum Type of Debridement: Excisional debridement Anesthesia Used: 5% Lidocaine Gel Depth: in the subcutaneous layer Percentage of wound debrided: 100 Instrument Used: 3mm curette Tissue Removed: Slough and devitalized tissue Severity: Fat Layer Exposed Amount of bleeding with debridement: Mild Bleeding Controlled with: Pressure Patient tolerated procedure well - Additional Wound Wound debrided: Nonhealing ulcer left dorsal foot Laterality: Left Type of Debridement: Excisional debridement Anesthesia Used: 5% Lidocaine Gel Depth: in the subcutaneous layer Percentage of wound debrided: 100 Instrument Used: 3mm curette Tissue Removed: Slough and devitalized tissue Severity: Fat Layer Exposed Amount of bleeding with debridement: Mild Bleeding Controlled with: Pressure Patient tolerated procedure: Patient tolerated procedure well Assessment/Plan Assessment: see above diagnoses Plan: The patient was seen and examined at the wound center today and was updated on the plan of care. A subcutaneous debridement was performed today. The patient tolerated the procedure well. The patients wound care will consist of: Applying Ted to both ulcerations with optifoam over the sacral pressure ulcer. Wound cultures were collected from the thigh ulcer previously and negative, repeat cultures were ordered to the new left dorsal foot ulcer and demonstrated staph, patient treated with a course of doxycycline, 4 additional days called to his pharmacy. Baseline bloodwork will be considered at next visit. Hold off on vascular at this time may consider at next visit if delayed wound healing. Patient educated on the importance of diet on wound healing and instructed to increase protein and vitamin C intake. Discussed with patient the importance of offloading and different offloading interventions to do to remove pressure from the sacral region. Patient verbalized understanding. Patient is going to follow-up with dermatology regarding his chronic blisters that open in his buttock area and thigh and groin area at times. Differentials include hidradenitis suppurativa. Patient will follow up at wound healing center in 1 week or sooner if needed. Encouraged smoking cessation again. This note was generated with [employer] dictation software. It may contain incorrect words, spelling, and punctuation that were not noted in checking the note before signing. Code Visit 111xxx-[id number]: 59955 Lillian subq tissue 20 sq cm/<
== END 2018-01-27 23:59 ==
LOC: WC 15:30
PROVIDERS: Visit Provider Nurse Practitioner Family
DX: L89.152 Pressure ulcer of sacral region, stage 2 (principal); E78.5 Hyperlipidemia, unspecified; J44.9 Chronic obstructive pulmonary disease, unspecified; E03.9 Hypothyroidism, unspecified; L97.522 Non-pressure chronic ulcer of other part of left foot with fat layer exposed
CPT/HCPCS: 11042; 87070; 87075; 87077; 87186; 87205

== ENCOUNTER → 2018-02-11 16:46 | Outpatient (CLI) | payer BC, MEDICARE, SELFPAY ==
[2018-02-11 18:46] LABS: PSA,Total - Annual Screen 2.51 ng/mL (0.00-4.00)
== END ==
PROVIDERS: Visit Provider Internal Medicine
DX: N40.1 Benign prostatic hyperplasia with lower urinary tract symptoms (principal)
CPT/HCPCS: 36415; 84153; G0103

== ENCOUNTER 2018-02-15 08:00 | Outpatient (RCR) | payer BC, MEDICARE, SELFPAY ==
[2018-01-28 01:34] VITALS: BP 125/69; PULSE 79; RESP 18; TEMP 36.3
[2018-01-28 16:19] VITALS: BP 134/73; PULSE 83; RESP 16; TEMP 36.5
--- NOTE | 2018-01-28 21:32 | PCM.WC.PN ---
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 Status: Acute Code(s): L97.522 - Non-pressure chronic ulcer of other part of left foot with fat layer exposed (2) Stage II pressure ulcer of sacral region Status: Acute Code(s): L89.152 - Pressure ulcer of sacral region, stage 2 (3) COPD (chronic obstructive pulmonary disease) Status: Acute Code(s): J44.9 - Chronic obstructive pulmonary disease, unspecified (4) Hyperlipidemia Status: Acute Code(s): E78.5 - Hyperlipidemia, unspecified (5) Tobacco abuse Status: Acute Code(s): Z72.0 - Tobacco use Type of Wound Date of Service: 01/28/18 Chief Complaint: Pressure ulcer to sacral region midline ?2 months and open blistered areas to right thigh intermittently for a couple of years, left lower extremity dorsal foot nonhealing ulcer times a couple months History of Wound: This is a 62-year-old white male who presents to the wound healing center today with complaints of pressure ulcer to midline sacral region and intermittent blisters that open up on his right posterior thigh. He has a past medical history as listed above. The patient states that after having a recent back surgery and right knee arthroscopy, he has not been as ambulatory as before and has been spending the majority of his time in his reclining chair. He states that approximately 2 months ago he noted a sore area causing him pain on his sacral region and has been applying triple antibiotic ointment and an antiseptic rinse given by his PCP on it. He also complains of intermittent blistering that has happened on his buttocks and thigh area on and off for the past couple of years. He states that he has multiple sites that will open up as a blister, drain pus, and then heal over. He has not been seen by a certified medical technician assistant for evaluation of this. He currently has 1 open blister on his right lateral thigh and states that pus was previously draining out of it but is no longer draining at this time. He denies any signs of systemic infection at this time. He denies any fever, chills, nausea, vomiting, shortness of breath, chest pain or pressure, syncope or presyncopal episode. Progress of Wound: Patient's pressure ulcer stage II on his sacrum is stable, has not been compliant with offloading or smoking cessation. His nonhealing ulcer on his left lower extremity on the dorsal foot has improved, doing well with the ted. The patient states that he followed up with dermatology and was told that the blisters that occur in his groin and have purulent drainage were diagnosed as calluses and was told to use a moisturizing cream. He does state that since taking the antibiotics, his blisters in the groin and buttock and thigh region have healed and have not been having any purulent discharge. Denies any signs and symptoms of systemic or localized infection. - Physical Exam Vital Signs Temp Pulse Resp BP 97.7 F L 83 16 134/73 H 01/28/18 16:19 01/28/18 16:19 01/28/18 16:19 01/28/18 16:19 General: Alert, Oriented x3, Cooperative, No apparent distress HEENT: Atraumatic Cardiovascular: Regular rate Abdomen: Obese Extremities: No clubbing, No cyanosis, Diminished Peripheral Pulses, Edema - Bilateral lower extremity edema Skin: Ulcer/ Wound - Sacral pressure ulcer present with adherent slough, no signs of infection at this time, nonhealing wound to left dorsal foot with adherent slough, no signs of infection at this time, no redness, malodor, or streaking. Neurological: Neuro grossly intact Psych/Mental Status: Flat Affect, Alert and oriented to time, place, person, mood and affect Debridement Note Post-Debridement Measurements/Treatment WC - Nurse 2 - General Ulcer CM Notes Start: 01/28/18 16:18 Freq: Status: Active Protocol: Activity Type Activity Date Activity User E-Sign Co-Sign Detail Recorded Client Recorded Date Recorded By Document 01/28/18 17:01 [id number] 01/28/18 17:08 01/28/18 17:01 Wound Center Nurse 2 #3- LT LAT FOOT -Time 17:01 -Correct Patient Yes -Correct Side, Site, Position Yes -Correct Procedure Yes -Procedure Performed Yes -Type of Procedure Debridement -Clinical Debridement Subcutaneous -Post Debridement Size (cm) - Length 0.3 -Post Debridement Size (cm) - Width 0.2 -Post Debridement Size (cm) - Depth 0.3 -Total Square Cm 0.06 -Wound/Ulcer Outcome Not Healed -Ulcer Cleansing Rinsed/ Irrigated with Saline -Foul Odor after Cleansing No -Bioengineered Tissue No -Topical Lidocaine (%) 4 -Bleeding Controlled with Pressure -Treatment Response Procedure Tolerated Well #1 sacral ulcer -Time 17:01 -Correct Patient Yes -Correct Side, Site, Position Yes -Correct Procedure Yes -Procedure Performed Yes -Type of Procedure Debridement -Clinical Debridement Subcutaneous -Post Debridement Size (cm) - Length 0.6 -Post Debridement Size (cm) - Width 0.2 -Post Debridement Size (cm) - Depth 0.2 -Total Square Cm 0.12 -Wound/Ulcer Outcome Not Healed -Ulcer Cleansing Rinsed/ Irrigated with Saline -Foul Odor after Cleansing No -Bioengineered Tissue No -Topical Lidocaine (%) 4 -Bleeding Controlled with Pressure -Treatment Response Procedure Tolerated Well Pain Scale: 0-10 Numeric Is Patient Pain Free? Yes Wound debrided: Stage II sacral pressure ulcer Type of Debridement: Excisional debridement Anesthesia Used: 5% Lidocaine Gel Depth: in the subcutaneous layer Percentage of wound debrided: 100 Instrument Used: 5mm curette Tissue Removed: Slough and devitalized tissue Severity: Fat Layer Exposed Amount of bleeding with debridement: Mild Bleeding Controlled with: Pressure Patient tolerated procedure well - Additional Wound Wound debrided: Nonhealing ulcer left dorsal foot Laterality: Left Type of Debridement: Excisional debridement Anesthesia Used: 5% Lidocaine Gel Depth: in the subcutaneous layer Percentage of wound debrided: 100 Instrument Used: 5mm curette Tissue Removed: Slough and devitalized tissue Severity: Fat Layer Exposed Amount of bleeding with debridement: Mild Bleeding Controlled with: Pressure Patient tolerated procedure: Patient tolerated procedure well Assessment/Plan Assessment: see above diagnoses Plan: The patient was seen and examined at the wound center today and was updated on the plan of care. A subcutaneous debridement was performed today. The patient tolerated the procedure well. The patients wound care will consist of: Applying Ted to both ulcerations with optifoam over the sacral pressure ulcer. Wound cultures were ordered to the new left dorsal foot ulcer and demonstrated staph, patient treated with a course of doxycycline, 4 additional days called to his pharmacy which patient completed. Baseline bloodwork will be considered at next visit if patient's wounds stop improving. Hold off on vascular at this time may consider at next visit if delayed wound healing. Patient educated on the importance of diet on wound healing and instructed to increase protein and vitamin C intake. Discussed with patient the importance of offloading and different offloading interventions to do to remove pressure from the sacral region. Patient verbalized understanding, however remains noncompliant with offloading. Patient will follow up at wound healing center in 1 week or sooner if needed. Encouraged smoking cessation again. This note was generated with [employer] dictation software. It may contain incorrect words, spelling, and punctuation that were not noted in checking the note before signing. Code Visit 111xxx-113xx: 33208 Lillian subq tissue 20 sq cm/<
[2018-02-04 16:30] VITALS: BP 126/74; PULSE 100; RESP 18; TEMP 36.5
--- NOTE | 2018-02-08 20:07 | PCM.WC.PN ---
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 Status: Acute Code(s): L97.522 - Non-pressure chronic ulcer of other part of left foot with fat layer exposed (2) Stage II pressure ulcer of sacral region Status: Acute Code(s): L89.152 - Pressure ulcer of sacral region, stage 2 (3) COPD (chronic obstructive pulmonary disease) Status: Acute Code(s): J44.9 - Chronic obstructive pulmonary disease, unspecified (4) Hyperlipidemia Status: Acute Code(s): E78.5 - Hyperlipidemia, unspecified (5) Tobacco abuse Status: Acute Code(s): Z72.0 - Tobacco use Type of Wound Date of Service: 02/04/18 Chief Complaint: Pressure ulcer to sacral region midline ?2 months and open blistered areas to right thigh intermittently for a couple of years, left lower extremity dorsal foot nonhealing ulcer times a couple months History of Wound: This is a 62-year-old white male who presents to the wound healing center today with complaints of pressure ulcer to midline sacral region and intermittent blisters that open up on his right posterior thigh. He has a past medical history as listed above. The patient states that after having a recent back surgery and right knee arthroscopy, he has not been as ambulatory as before and has been spending the majority of his time in his reclining chair. He states that approximately 2 months ago he noted a sore area causing him pain on his sacral region and has been applying triple antibiotic ointment and an antiseptic rinse given by his PCP on it. He also complains of intermittent blistering that has happened on his buttocks and thigh area on and off for the past couple of years. He states that he has multiple sites that will open up as a blister, drain pus, and then heal over. He has not been seen by a manager sustainability for evaluation of this. He currently has 1 open blister on his right lateral thigh and states that pus was previously draining out of it but is no longer draining at this time. He denies any signs of systemic infection at this time. He denies any fever, chills, nausea, vomiting, shortness of breath, chest pain or pressure, syncope or presyncopal episode. Progress of Wound: Patient's pressure ulcer stage II on his sacrum is stable, has not been compliant with offloading or smoking cessation. His nonhealing ulcer on his left lower extremity on the dorsal foot was improved, However, he did not take his muscle relaxant today and had an involuntary muscle spasm during debridement and some surrounding tissue unintentionally sheared with currette, bleeding controlled with silver nitrate. Denies any signs and symptoms of systemic or localized infection. - Physical Exam Vital Signs Temp Pulse Resp BP 97.7 F L 100 18 126/74 H 02/04/18 16:30 02/04/18 16:30 02/04/18 16:30 02/04/18 16:30 General: Alert, Oriented x3, Cooperative, No apparent distress HEENT: Atraumatic Oral: Moist Mucosa Cardiovascular: Regular rate Extremities: No clubbing, No cyanosis, Diminished Peripheral Pulses, Edema - generalized BLLE edema Skin: Ulcer/ Wound - see wound assessment documentation Musculoskeletal: No Tenderness to Palpation of Joints or Extremities, No Muscle Wasting Neurological: Neuro grossly intact, - - involuntary muscle spasms Psych/Mental Status: Normal Affect, Appropriate, Alert and oriented to time, place, person, mood and affect Debridement Note Post-Debridement Measurements/Treatment WC - Nurse 2 - General Ulcer CM Notes Start: 01/28/18 16:18 Freq: Status: Active Protocol: Activity Type Activity Date Activity User E-Sign Co-Sign Detail Recorded Client Recorded Date Recorded By Document 01/28/18 17:01 [id number] 01/28/18 17:08 TM Document 02/04/18 16:52 [id number] 02/04/18 17:02 TM 01/28/18 02/04/18 17:01 16:52 Wound Center Nurse 2 #3- LT LAT FOOT -Time 17:01 16:57 -Correct Patient Yes Yes -Correct Side, Site, Position Yes Yes -Correct Procedure Yes Yes -Procedure Performed Yes Yes -Type of Procedure Debridement Debridement -Clinical Debridement Subcutaneous Subcutaneous -Post Debridement Size (cm) - Length 0.3 2.1 -Post Debridement Size (cm) - Width 0.2 0.3 -Post Debridement Size (cm) - Depth 0.3 0.2 -Total Square Cm 0.06 0.63 -Wound/Ulcer Outcome Not Healed Not Healed -Ulcer Cleansing Rinsed/ Rinsed/ Irrigated with Irrigated with Saline Saline -Foul Odor after Cleansing No No -Bioengineered Tissue No No -Topical Lidocaine (%) 4 5 -Bleeding Controlled with Pressure Pressure -Treatment Response Procedure Procedure Tolerated Well Tolerated Well #1 sacral ulcer -Time 17:01 16:58 -Correct Patient Yes Yes -Correct Side, Site, Position Yes Yes -Correct Procedure Yes Yes -Procedure Performed Yes Yes -Type of Procedure Debridement Debridement -Clinical Debridement Subcutaneous Subcutaneous -Post Debridement Size (cm) - Length 0.6 0.6 -Post Debridement Size (cm) - Width 0.2 0.3 -Post Debridement Size (cm) - Depth 0.2 0.2 -Total Square Cm 0.12 0.18 -Wound/Ulcer Outcome Not Healed Not Healed -Ulcer Cleansing Rinsed/ Rinsed/ Irrigated with Irrigated with Saline Saline -Foul Odor after Cleansing No No -Bioengineered Tissue No No -Topical Lidocaine (%) 4 5 -Bleeding Controlled with Pressure Pressure -Treatment Response Procedure Procedure Tolerated Well Tolerated Well Pain Scale: 0-10 Numeric Is Patient Pain Free? Yes Yes Wound debrided: stage two pressure ulcer sacrum Type of Debridement: Excisional debridement Anesthesia Used: 5% Lidocaine Gel Depth: in the subcutaneous layer Percentage of wound debrided: 100 Instrument Used: 3mm curette Tissue Removed: slough and devitalized tissue Severity: Fat Layer Exposed Amount of bleeding with debridement: Mild Bleeding Controlled with: Pressure Patient tolerated procedure well - Additional Wound Wound debrided: left nonhealing foot ulcer Laterality: Left Type of Debridement: Excisional debridement Anesthesia Used: 5% Lidocaine Gel Depth: in the subcutaneous layer Percentage of wound debrided: 100 Instrument Used: 3mm curette Tissue Removed: slough, devitalized tissue, sheared tissue surrounding ulcer d/t muscle spa Severity: Fat Layer Exposed Amount of bleeding with debridement: Mild Bleeding Controlled with: Silver Nitrate Patient tolerated procedure: Patient did not tolerate procedure well - involuntary muscle spasms Assessment/Plan Assessment: see above diagnoses Plan: The patient was seen and examined at the wound center today and was updated on the plan of care. A subcutaneous debridement was performed today. The patient tolerated the procedure poorly due to involuntary leg spasms. The patients wound care will consist of: Applying Nanda to both ulcerations with optifoam over the sacral pressure ulcer. Wound cultures were ordered to the new left dorsal foot ulcer and demonstrated staph, patient treated with a course of doxycycline. Baseline bloodwork will be considered at next visit if patient's wounds stop improving. Hold off on vascular at this time may consider at next visit if delayed wound healing. Patient educated on the importance of diet on wound healing and instructed to increase protein and vitamin C intake. Discussed with patient the importance of offloading and different offloading interventions to do to remove pressure from the sacral region. Patient verbalized understanding, however remains noncompliant with offloading. Patient will follow up at wound healing center in 1 week or sooner if needed. Encouraged smoking cessation again. This note was generated with [employer] dictation software. It may contain incorrect words, spelling, and punctuation that were not noted in checking the note before signing. Code Visit 111xxx-113xx: [id number] Lillian subq tissue 20 sq cm/<
[2018-02-15 08:44] VITALS: BP 123/63; PULSE 76; RESP 16; TEMP 36.3
--- NOTE | 2018-02-15 09:47 | PCM.WC.PN ---
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 Status: Acute Current Visit: Yes Code(s): L97.522 - Non-pressure chronic ulcer of other part of left foot with fat layer exposed (2) Stage II pressure ulcer of sacral region Status: Acute Current Visit: Yes Code(s): L89.152 - Pressure ulcer of sacral region, stage 2 (3) COPD (chronic obstructive pulmonary disease) Status: Acute Current Visit: No Code(s): J44.9 - Chronic obstructive pulmonary disease, unspecified (4) Hyperlipidemia Status: Acute Current Visit: No Code(s): E78.5 - Hyperlipidemia, unspecified (5) Tobacco abuse Status: Acute Current Visit: Yes Code(s): Z72.0 - Tobacco use Type of Wound Date of Service: 02/11/18 Chief Complaint: Pressure ulcer to sacral region midline ?2 months and open blistered areas to right thigh intermittently for a couple of years, left lower extremity dorsal foot nonhealing ulcer times a couple months History of Wound: This is a 62-year-old white male who presents to the wound healing center today with complaints of pressure ulcer to midline sacral region and intermittent blisters that open up on his right posterior thigh. He has a past medical history as listed above. The patient states that after having a recent back surgery and right knee arthroscopy, he has not been as ambulatory as before and has been spending the majority of his time in his reclining chair. He states that approximately 2 months ago he noted a sore area causing him pain on his sacral region and has been applying triple antibiotic ointment and an antiseptic rinse given by his PCP on it. He also complains of intermittent blistering that has happened on his buttocks and thigh area on and off for the past couple of years. He states that he has multiple sites that will open up as a blister, drain pus, and then heal over. He has not been seen by a travel insurance agent for evaluation of this. He currently has 1 open blister on his right lateral thigh and states that pus was previously draining out of it but is no longer draining at this time. He denies any signs of systemic infection at this time. He denies any fever, chills, nausea, vomiting, shortness of breath, chest pain or pressure, syncope or presyncopal episode. Progress of Wound: Patient's pressure ulcer stage II on his sacrum is slowly improving, has not been compliant with offloading or smoking cessation. His nonhealing ulcer on his left lower extremity on the dorsal foot is improving. Denies any signs and symptoms of systemic or localized infection. - Physical Exam Vital Signs Temp Pulse Resp BP 97.3 F L 76 16 123/63 H 02/15/18 08:44 02/15/18 08:44 02/15/18 08:44 02/15/18 08:44 General: Alert, Oriented x3, Cooperative, No apparent distress HEENT: Atraumatic Oral: Moist Mucosa Cardiovascular: Regular rate Abdomen: Obese Extremities: No clubbing, No cyanosis, Edema - generalized BLLE edema, Peripheral Pulses Normal Skin: Ulcer/ Wound - Stage II sacral pressure ulcer with adherent slough, no surrounding erythema or signs of infection at this time, left foot ulcer with adherent slough, no signs of infection Wound Measurements and Assessment WC - Nurse 1 - General Ulcer Measurement Start: 01/28/18 16:18 Freq: Status: Active Protocol: Activity Type Activity Date Activity User E-Sign Co-Sign Detail Recorded Client Recorded Date Recorded By Document 02/15/18 08:44 [id number] 02/15/18 08:47 02/15/18 08:44 Wound Center Nurse 1 [Ulcer Assessment] #3- LT LAT FOOT -Combined with other wound No -Current Size (cm) - Length 2.3 -Current Size (cm) - Width 0.3 -Current Size (cm) - Depth 0.1 -Total Square Cm 0.69 -Date of Last Picture (Recall this 02/15/18 field) -Photo Taken Yes -Epithelialization Medium 34-66% -Tunneling No -Undermining/Tunneling No -Circular Undermining No -Exudate Amt None Present (0 %) -Wound Margin Distinct, Outline Attached -Granulation Amt Medium (34-66%) -Granulation Quality [place] -Slough/Fibrin Yes -Necrosis Amt None Present (0 %) -Necrotic Tissue Type Adherent Slough -Temperature (Michelle-wound Skin No Abnormality Appearance) (Pt Warm) -Tenderness on Palpation (Michelle-wound No Skin Appearance) -Ulcer Cleansing Rinsed/ Irrigated with Saline -Foul Odor after Cleansing No -Anesthetic Used 4% Lidocaine Solution #1 sacral ulcer -Combined with other wound No -Current Size (cm) - Length 0.1 -Current Size (cm) - Width 0.1 -Current Size (cm) - Depth 0.1 -Total Square Cm 0.01 -Date of Last Picture (Recall this 02/15/18 field) -Photo Taken Yes -Epithelialization Large 67-100% -Tunneling No -Undermining/Tunneling No -Circular Undermining No -Temperature (Michelle-wound Skin No Abnormality Appearance) (Pt Warm) -Tenderness on Palpation (Michelle-wound No Skin Appearance) -Ulcer Cleansing Rinsed/ Irrigated with Saline -Foul Odor after Cleansing No -Anesthetic Used 4% Lidocaine Solution [Edema Assessment] -Lower Limb Edema Present NA WC - Nurse 2 - General Ulcer CM Notes Start: 01/28/18 16:18 Freq: Status: Active Protocol: Activity Type Activity Date Activity User E-Sign Co-Sign Detail Recorded Client Recorded Date Recorded By Document 02/15/18 08:58 DV [id number] 02/15/18 09:04 DV 02/15/18 08:58 Wound Center Nurse 2 [Procedure/Treatment] #3- LT LAT FOOT -Time 08:58 -Correct Patient Yes -Correct Side, Site, Position Yes -Correct Procedure Yes -Procedure Performed Yes -Type of Procedure Debridement -Clinical Debridement Subcutaneous -Post Debridement Size (cm) - Length 1.5 -Post Debridement Size (cm) - Width 0.4 -Post Debridement Size (cm) - Depth 0.2 -Total Square Cm 0.60 -Wound/Ulcer Outcome Not Healed -Ulcer Cleansing Rinsed/ Irrigated with Saline -Bleeding Controlled with Pressure -Treatment Response Procedure Tolerated Well #1 sacral ulcer -Time 09:01 -Correct Patient Yes -Correct Side, Site, Position Yes -Correct Procedure Yes -Procedure Performed Yes -Type of Procedure Debridement -Clinical Debridement Subcutaneous -Post Debridement Size (cm) - Length 0.4 -Post Debridement Size (cm) - Width 0.2 -Post Debridement Size (cm) - Depth 0.2 -Total Square Cm 0.08 -Wound/Ulcer Outcome Not Healed -Ulcer Cleansing Rinsed/ Irrigated with Saline -Foul Odor after Cleansing No -Bioengineered Tissue No -Bleeding Controlled with Pressure -Treatment Response Procedure Tolerated Well [See Physician Procedure note for Specifics] Pain Scale: 0-10 Numeric [Pain] -Is Patient Pain Free? Yes Neurological: Cranial nerves II-XII grossly intact, Neuro grossly intact Psych/Mental Status: Normal Affect, Appropriate, Alert and oriented to time, place, person, mood and affect Debridement Note Post-Debridement Measurements/Treatment WC - Nurse 2 - General Ulcer CM Notes Start: 01/28/18 16:18 Freq: Status: Active Protocol: Activity Type Activity Date Activity User E-Sign Co-Sign Detail Recorded Client Recorded Date Recorded By Document 01/28/18 17:01 [id number] 01/28/18 17:08 TM Document 02/04/18 16:52 TM [id number] 02/04/18 17:02 TM Document 02/15/18 08:58 [id number] 02/15/18 09:04 DV 01/28/18 02/04/18 02/15/18 17:01 16:52 08:58 Wound Center Nurse 2 #3- LT LAT FOOT -Time 17:01 16:57 08:58 -Correct Patient Yes Yes Yes -Correct Side, Site, Position Yes Yes Yes -Correct Procedure Yes Yes Yes -Procedure Performed Yes Yes Yes -Type of Procedure Debridement Debridement Debridement -Clinical Debridement Subcutaneous Subcutaneous Subcutaneous -Post Debridement Size (cm) - Length 0.3 2.1 1.5 -Post Debridement Size (cm) - Width 0.2 0.3 0.4 -Post Debridement Size (cm) - Depth 0.3 0.2 0.2 -Total Square Cm 0.06 0.63 0.60 -Wound/Ulcer Outcome Not Healed Not Healed Not Healed -Ulcer Cleansing Rinsed/ Rinsed/ Rinsed/ Irrigated with Irrigated with Irrigated with Saline Saline Saline -Foul Odor after Cleansing No No -Bioengineered Tissue No No -Topical Lidocaine (%) 4 5 -Bleeding Controlled with Pressure Pressure Pressure -Treatment Response Procedure Procedure Procedure Tolerated Well Tolerated Well Tolerated Well #1 sacral ulcer -Time 17:01 16:58 09:01 -Correct Patient Yes Yes Yes -Correct Side, Site, Position Yes Yes Yes -Correct Procedure Yes Yes Yes -Procedure Performed Yes Yes Yes -Type of Procedure Debridement Debridement Debridement -Clinical Debridement Subcutaneous Subcutaneous Subcutaneous -Post Debridement Size (cm) - Length 0.6 0.6 0.4 -Post Debridement Size (cm) - Width 0.2 0.3 0.2 -Post Debridement Size (cm) - Depth 0.2 0.2 0.2 -Total Square Cm 0.12 0.18 0.08 -Wound/Ulcer Outcome Not Healed Not Healed Not Healed -Ulcer Cleansing Rinsed/ Rinsed/ Rinsed/ Irrigated with Irrigated with Irrigated with Saline Saline Saline -Foul Odor after Cleansing No No No -Bioengineered Tissue No No No -Topical Lidocaine (%) 4 5 -Bleeding Controlled with Pressure Pressure Pressure -Treatment Response Procedure Procedure Procedure Tolerated Well Tolerated Well Tolerated Well Pain Scale: 0-10 Numeric Is Patient Pain Free? Yes Yes Yes Wound debrided: Stage II sacral pressure ulcer Laterality: Not Applicable Type of Debridement: Excisional debridement Anesthesia Used: 5% Lidocaine Gel Depth: in the subcutaneous layer Percentage of wound debrided: 100 Instrument Used: 3mm curette Tissue Removed: Slough and devitalized tissue Severity: Fat Layer Exposed Amount of bleeding with debridement: Mild Bleeding Controlled with: Pressure Patient tolerated procedure well - Additional Wound Wound debrided: Nonhealing ulcer of left foot Laterality: Left Type of Debridement: Excisional debridement Anesthesia Used: 5% Lidocaine Gel Depth: in the subcutaneous layer Percentage of wound debrided: 100 Instrument Used: 3mm curette Tissue Removed: Slough and devitalized tissue Severity: Fat Layer Exposed Amount of bleeding with debridement: Mild Bleeding Controlled with: Pressure Patient tolerated procedure: Patient tolerated procedure well Assessment/Plan Active Problems Stage II pressure ulcer of sacral region (Acute) Tobacco abuse (Acute) 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 A subcutaneous debridement was performed today. The patient tolerated the procedure well. The patients wound care will consist of: Applying Nanda to both ulcerations with optifoam over the sacral pressure ulcer. Wound cultures were ordered to the new left dorsal foot ulcer and demonstrated staph, patient treated with a course of doxycycline. Baseline bloodwork will be considered at next visit if patient's wounds stop improving. Hold off on vascular at this time may consider at next visit if delayed wound healing. Patient educated on the importance of diet on wound healing and instructed to increase protein and vitamin C intake. Discussed with patient the importance of offloading and different offloading interventions to do to remove pressure from the sacral region. Patient verbalized understanding, however remains noncompliant with offloading. Patient will follow up at wound healing center in 1 week or sooner if needed. Encouraged smoking cessation again. This note was generated with [employer] software. It may contain incorrect words, spelling, and punctuation that were not noted in checking the note before signing. Code Visit 111xxx-113xx: [id number] Lillian subq tissue 20 sq cm/<
--- NOTE | 2018-02-15 09:55 | PN.PCM_ITS ---
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 Status: Acute Current Visit: Yes Code(s): L97.522 - Non-pressure chronic ulcer of other part of left foot with fat layer exposed (2) Stage II pressure ulcer of sacral region Status: Acute Current Visit: Yes Code(s): L89.152 - Pressure ulcer of sacral region, stage 2 (3) COPD (chronic obstructive pulmonary disease) Status: Acute Current Visit: No Code(s): J44.9 - Chronic obstructive pulmonary disease, unspecified (4) Hyperlipidemia Status: Acute Current Visit: No Code(s): E78.5 - Hyperlipidemia, unspecified (5) Tobacco abuse Status: Acute Current Visit: Yes Code(s): Z72.0 - Tobacco use Type of Wound Date of Service: 02/11/18 Chief Complaint: Pressure ulcer to sacral region midline ?2 months and open blistered areas to right thigh intermittently for a couple of years, left lower extremity dorsal foot nonhealing ulcer times a couple months History of Wound: This is a 62-year-old white male who presents to the wound healing center today with complaints of pressure ulcer to midline sacral region and intermittent blisters that open up on his right posterior thigh. He has a past medical history as listed above. The patient states that after having a recent back surgery and right knee arthroscopy, he has not been as ambulatory as before and has been spending the majority of his time in his reclining chair. He states that approximately 2 months ago he noted a sore area causing him pain on his sacral region and has been applying triple antibiotic ointment and an antiseptic rinse given by his PCP on it. He also complains of intermittent blis tering that has happened on his buttocks and thigh area on and off for the past couple of years. He states that he has multiple sites that will open up as a blister, drain pus, and then heal over. He has not been seen by a bell hole digger for evaluation of this. He currently has 1 open blister on his right lateral thigh and states that pus was previously draining out of it but is no longer draining at this time. He denies any signs of systemic infection at this time. He denies any fever, chills, nausea, vomiting, shortness of breath, chest pain or pressure, syncope or presyncopal episode. Progress of Wound: Patient's pressure ulcer stage II on his sacrum is slowly improving, has not been compliant with offloading or smoking cessation. His nonhealing ulcer on his left lower extremity on the dorsal foot is improving. Denies any signs and symptoms of systemic or localized infection. - Physical Exam Vital Signs Temp Pulse Resp BP 97.3 F L 76 16 123/63 H 02/15/18 08:44 02/15/18 08:44 02/15/18 08:44 02/15/18 08:44 General: Alert, Oriented x3, Cooperative, No apparent distress HEENT: Atraumatic Oral: Moist Mucosa Cardiovascular: Regular rate Abdomen: Obese Extremities: No clubbing, No cyanosis, Edema - generalized BLLE edema, Peripheral Pulses Normal Skin: Ulcer/ Wound - Stage II sacral pressure ulcer with adherent slough, no surrounding erythema or signs of infection at this time, left foot ulcer with adherent slough, no signs of infection Wound Measurements and Assessment WC - Nurse 1 - General Ulcer Measurement Start: 01/28/18 16:18 Freq: Status: Active Protocol: Activity Type Activity Date Activity User E-Sign Co-Sign Detail Recorded Client Recorded Date Recorded By Document 02/15/18 08:44 [id number] 02/15/18 08:47 CS 02/15/18 08:44 Wound Center Nurse 1 [Ulcer Assessment] #3- LT LAT FOOT -Combined with other wound No -Current Size (cm) - Length 2.3 -Current Size (cm) - Width 0.3 -Current Size (cm) - Depth 0.1 -Total Square Cm 0.69 -Date of Last Picture (Recall this 02/15/18 field) -Photo Taken Yes -Epithelialization Medium 34-66% -Tunneling No -Undermining/Tunneling No -Circular Undermining No -Exudate Amt None Present (0 %) -Wound Margin Distinct, Outline Attached -Granulation Amt Medium (34-66%) -Granulation Quality [place] -Slough/Fibrin Yes -Necrosis Amt None Present (0 %) -Necrotic Tissue Type Adherent Slough -Temperature (Michelle-wound Skin No Abnormality Appearance) (Pt Warm) -Tenderness on Palpation (Michelle-wound No Skin Appearance) -Ulcer Cleansing Rinsed/ Irrigated with Saline -Foul Odor after Cleansing No -Anesthetic Used 4% Lidocaine Solution #1 sacral ulcer -Combined with other wound No -Current Size (cm) - Length 0.1 -Current Size (cm) - Width 0.1 -Current Size (cm) - Depth 0.1 -Total Square Cm 0.01 -Date of Last Picture (Recall this 02/15/18 field) -Photo Taken Yes -Epithelialization Large 67-100% -Tunneling No -Undermining/Tunneling No -Circular Undermining No -Temperature (Michelle-wound Skin No Abnormality Appearance) (Pt Warm) -Tenderness on Palpation (Michelle-wound No Skin Appearance) -Ulcer Cleansing Rinsed/ Irrigated with Saline -Foul Odor after Cleansing No -Anesthetic Used 4% Lidocaine Solution [Edema Assessment] -Lower Limb Edema Present NA WC - Nurse 2 - General Ulcer CM Notes Start: 01/28/18 16:18 Freq: Status: Active Protocol: Activity Type Activity Date Activity User E-Sign Co-Sign Detail Recorded Client Recorded Date Recorded By Document 02/15/18 08:58 DV [id number] 02/15/18 09:04 DV 02/15/18 08:58 Wound Center Nurse 2 [Procedure/Treatment] #3- LT LAT FOOT -Time 08:58 -Correct Patient Yes -Correct Side, Site, Position Yes -Correct Procedure Yes -Procedure Performed Yes -Type of Procedure Debridement -Clinical Debridement Subcutaneous -Post Debridement Size (cm) - Length 1.5 -Post Debridement Size (cm) - Width 0.4 -Post Debridement Size (cm) - Depth 0.2 -Total Square Cm 0.60 -Wound/Ulcer Outcome Not Healed -Ulcer Cleansing Rinsed/ Irrigated with Saline -Bleeding Controlled with Pressure -Treatment Response Procedure Tolerated Well #1 sacral ulcer -Time 09:01 -Correct Patient Yes -Correct Side, Site, Position Yes -Correct Procedure Yes -Procedure Performed Yes -Type of Procedure Debridement -Clinical Debridement Subcutaneous -Post Debridement Size (cm) - Length 0.4 -Post Debridement Size (cm) - Width 0.2 -Post Debridement Size (cm) - Depth 0.2 -Total Square Cm 0.08 -Wound/Ulcer Outcome Not Healed -Ulcer Cleansing Rinsed/ Irrigated with Saline -Foul Odor after Cleansing No -Bioengineered Tissue No -Bleeding Controlled with Pressure -Treatment Response Procedure Tolerated Well [See Physician Procedure note for Specifics] Pain Scale: 0-10 Numeric [Pain] -Is Patient Pain Free? Yes Neurological: Cranial nerves II-XII grossly intact, Neuro grossly intact Psych/Mental Status: Normal Affect, Appropriate, Alert and oriented to time, place, person, mood and affect Debridement Note Post-Debridement Measurements/Treatment WC - Nurse 2 - General Ulcer CM Notes Start: 01/28/18 16:18 Freq: Status: Active Protocol: Activity Type Activity Date Activity User E-Sign Co-Sign Detail Recorded Client Recorded Date Recorded By Document 01/28/18 17:01 [id number] 01/28/18 17:08 TM Document 02/04/18 16:52 [id number] 02/04/18 17:02 TM Document 02/15/18 08:58 [id number] 02/15/18 09:04 DV 01/28/18 02/04/18 02/15/18 17:01 16:52 08:58 Wound Center Nurse 2 #3- LT LAT FOOT -Time 17:01 16:57 08:58 -Correct Patient Yes Yes Yes -Correct Side, Site, Position Yes Yes Yes -Correct Procedure Yes Yes Yes -Procedure Performed Yes Yes Yes -Type of Procedure Debridement Debridement Debridement -Clinical Debridement Subcutaneous Subcutaneous Subcutaneous -Post Debridement Size (cm) - Length 0.3 2.1 1.5 -Post Debridement Size (cm) - Width 0.2 0.3 0.4 -Post Debridement Size (cm) - Depth 0.3 0.2 0.2 -Total Square Cm 0.06 0.63 0.60 -Wound/Ulcer Outcome Not Healed Not Healed Not Healed -Ulcer Cleansing Rinsed/ Rinsed/ Rinsed/ Irrigated with Irrigated with Irrigated with Saline Saline Saline -Foul Odor after Cleansing No No -Bioengineered Tissue No No -Topical Lidocaine (%) 4 5 -Bleeding Controlled with Pressure Pressure Pressure -Treatment Response Procedure Procedure Procedure Tolerated Well Tolerated Well Tolerated Well #1 sacral ulcer -Time 17:01 16:58 09:01 -Correct Patient Yes Yes Yes -Correct Side, Site, Position Yes Yes Yes -Correct Procedure Yes Yes Yes -Procedure Performed Yes Yes Yes -Type of Procedure Debridement Debridement Debridement -Clinical Debridement Subcutaneous Subcutaneous Subcutaneous -Post Debridement Size (cm) - Length 0.6 0.6 0.4 -Post Debridement Size (cm) - Width 0.2 0.3 0.2 -Post Debridement Size (cm) - Depth 0.2 0.2 0.2 -Total Square Cm 0.12 0.18 0.08 -Wound/Ulcer Outcome Not Healed Not Healed Not Healed -Ulcer Cleansing Rinsed/ Rinsed/ Rinsed/ Irrigated with Irrigated with Irrigated with Saline Saline Saline -Foul Odor after Cleansing No No No -Bioengineered Tissue No No No -Topical Lidocaine (%) 4 5 -Bleeding Controlled with Pressure Pressure Pressure -Treatment Response Procedure Procedure Procedure Tolerated Well Tolerated Well Tolerated Well Pain Scale: 0-10 Numeric Is Patient Pain Free? Yes Yes Yes Wound debrided: Stage II sacral pressure ulcer Laterality: Not Applicable Type of Debridement: Excisional debridement Anesthesia Used: 5% Lidocaine Gel Depth: in the subcutaneous layer Percentage of wound debrided: 100 Instrument Used: 3mm curette Tissue Removed: Slough and devitalized tissue Severity: Fat Layer Exposed Amount of bleeding with debridement: Mild Bleeding Controlled with: Pressure Patient tolerated procedure well - Additional Wound Wound debrided: Nonhealing ulcer of left foot Laterality: Left Type of Debridement: Excisional debridement Anesthesia Used: 5% Lidocaine Gel Depth: in the subcutaneous layer Percentage of wound debrided: 100 Instrument Used: 3mm curette Tissue Removed: Slough and devitalized tissue Severity: Fat Layer Exposed Amount of bleeding with debridement: Mild Bleeding Controlled with: Pressure Patient tolerated procedure: Patient tolerated procedure well Assessment/Plan Active Problems Stage II pressure ulcer of sacral region (Acute) Tobacco abuse (Acute) 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 A subcutaneous debridement was performed today. The patient tolerated the procedure well. The patients wound care will consist of: Applying Nanda to both ulcerations with optifoam over the sacral pressure ulcer. Wound cultures were ordered to the new left dorsal foot ulcer and demonstrated staph, patient treated with a course of doxycycline. Baseline bloodwork will be considered at next visit if patient's wounds stop improving. Hold off on vascular at this time may consider at next visit if delayed wound healing. Patient educated on the importance of diet on wound healing and instructed to increase protein and vitamin C intake. Discussed with patient the importance of offloading and different offloading interventions to do to remove pressure from the sacral region. Patient verbalized understanding, however remains noncompliant with offloading. Patient will follow up at wound healing center in 1 week or sooner if needed. Encouraged smoking cessation again. This note was generated with [employer] software. It may contain incorrect words, spelling, and punctuation that were not noted in checking the note before signing. Code Visit [id number]: [id number] Lillian subq tissue 20 sq cm/<
== END 2018-02-26 23:59 ==
LOC: WC 08:00
PROVIDERS: Visit Provider Nurse Practitioner Family
DX: L89.152 Pressure ulcer of sacral region, stage 2 (principal); L97.522 Non-pressure chronic ulcer of other part of left foot with fat layer exposed; E78.5 Hyperlipidemia, unspecified; Z72.0 Tobacco use; J44.9 Chronic obstructive pulmonary disease, unspecified; Z91.19 Patient's noncompliance with other medical treatment and regimen
CPT/HCPCS: 11042

== ENCOUNTER 2018-03-25 16:00 | Outpatient (RCR) | payer BC, MEDICARE, SELFPAY ==
[2018-02-27 01:17] VITALS: BP 123/63; PULSE 76; RESP 16; TEMP 36.3
[2018-03-04 16:23] VITALS: BP 142/81; PULSE 75; RESP 18; TEMP 37.1
--- NOTE | 2018-03-04 20:08 | PCM.WC.PN ---
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 Status: Acute Current Visit: Yes Code(s): L97.522 - Non-pressure chronic ulcer of other part of left foot with fat layer exposed (3) COPD (chronic obstructive pulmonary disease) Status: Acute Current Visit: Yes Code(s): J44.9 - Chronic obstructive pulmonary disease, unspecified (4) Hyperlipidemia Status: Acute Current Visit: Yes Code(s): E78.5 - Hyperlipidemia, unspecified (5) Tobacco abuse Status: Acute Current Visit: Yes Code(s): Z72.0 - Tobacco use Type of Wound Date of Service: 03/04/18 Chief Complaint: Pressure ulcer to sacral region midline ?2 months and open blistered areas to right thigh intermittently for a couple of years, left lower extremity dorsal foot nonhealing ulcer times a couple months History of Wound: This is a 62-year-old white male who presents to the wound healing center today with complaints of pressure ulcer to midline sacral region and intermittent blisters that open up on his right posterior thigh. He has a past medical history as listed above. The patient states that after having a recent back surgery and right knee arthroscopy, he has not been as ambulatory as before and has been spending the majority of his time in his reclining chair. He states that approximately 2 months ago he noted a sore area causing him pain on his sacral region and has been applying triple antibiotic ointment and an antiseptic rinse given by his PCP on it. He also complains of intermittent blistering that has happened on his buttocks and thigh area on and off for the past couple of years. He states that he has multiple sites that will open up as a blister, drain pus, and then heal over. He has not been seen by a loss control consultant for evaluation of this. He currently has 1 open blister on his right lateral thigh and states that pus was previously draining out of it but is no longer draining at this time. He denies any signs of systemic infection at this time. He denies any fever, chills, nausea, vomiting, shortness of breath, chest pain or pressure, syncope or presyncopal episode. Progress of Wound: Patient's pressure ulcer stage II on his sacrum is healed, has not been compliant with offloading or smoking cessation. His nonhealing ulcer on his left lower extremity on the dorsal foot is improving. Denies any signs and symptoms of systemic or localized infection. - Physical Exam Vital Signs Temp Pulse Resp BP 98.7 F 75 18 142/81 H 03/04/18 16:23 12 16:23 03/04/18 16:23 03/04/18 16:23 General: Alert, Oriented x3, Cooperative, No apparent distress HEENT: Atraumatic Neck: Supple Lungs: Clear to auscultation Cardiovascular: Regular rate Extremities: No clubbing, No cyanosis, Edema - Generalized bilateral lower extremity edema, Peripheral Pulses Normal Skin: Ulcer/ Wound - Left dorsal foot ulceration with adherent slough, no signs of infection at this time, stage II sacral pressure ulcer now healed, no signs of infection at this time. Wound Measurements and Assessment WC - Nurse 1 - General Ulcer Measurement Start: 03/04/18 15:52 Freq: Status: Active Protocol: Activity Type Activity Date Activity User E-Sign Co-Sign Detail Recorded Client Recorded Date Recorded By Document 03/04/18 16:23 [facility] [id number] 03/04/18 16:31 [facility] 03/04/18 16:23 Wound Center Nurse 1 [Ulcer Assessment] #3- LT LAT FOOT -Combined with other wound No -Current Size (cm) - Length 1.7 -Current Size (cm) - Width 0.1 -Current Size (cm) - Depth 0.1 -Total Square Cm 0.17 -Photo Taken No -Epithelialization Small 1-33% -Tunneling No -Undermining/Tunneling No -Circular Undermining No -Exudate Amt None Present (0 %) -Wound Margin Distinct, Outline Attached -Granulation Amt Small (1-33%) -Granulation Quality [place] -Slough/Fibrin Yes -Necrosis Amt Large (67-100%) -Necrotic Tissue Type Adherent Slough -Texture (Michelle-wound Skin Appearance) Scarring -Moisture (Michelle-wound Skin Appearance Dry/Scaly ) -Color (Michelle-wound Skin Appearance) Erythema -Temperature (Michelle-wound Skin No Abnormality Appearance) (Pt Warm) -Tenderness on Palpation (Michelle-wound No Skin Appearance) -Ulcer Cleansing Rinsed/ Irrigated with Saline -Foul Odor after Cleansing No -Anesthetic Used 5% Lidocaine Gel #1 sacral ulcer -Combined with other wound No -Current Size (cm) - Length 0.1 -Current Size (cm) - Width 0.1 -Current Size (cm) - Depth 0.1 -Total Square Cm 0.01 -Photo Taken No -Epithelialization Large 67-100% -Tunneling No -Undermining/Tunneling No -Circular Undermining No -Exudate Amt None Present (0 %) -Texture (Michelle-wound Skin Appearance) Scarring -Moisture (Michelle-wound Skin Appearance Assessed ) Maceration -Color (Michelle-wound Skin Appearance) Assessed Palor -Temperature (Michelle-wound Skin No Abnormality Appearance) (Pt Warm) -Tenderness on Palpation (Michelle-wound No Skin Appearance) -Ulcer Cleansing Rinsed/ Irrigated with Saline -Foul Odor after Cleansing No -Anesthetic Used 5% Lidocaine Gel WC - Nurse 2 - General Ulcer CM Notes Start: 03/04/18 15:52 Freq: Status: Active Protocol: Activity Type Activity Date Activity User E-Sign Co-Sign Detail Recorded Client Recorded Date Recorded By Document 03/04/18 17:12 [id number] 03/04/18 17:15 03/04/18 17:12 Wound Center Nurse 2 [Procedure/Treatment] #3- LT LAT FOOT -Time 17:12 -Correct Patient Yes -Correct Side, Site, Position Yes -Correct Procedure Yes -Procedure Performed Yes -Type of Procedure Debridement -Clinical Debridement Subcutaneous -Post Debridement Size (cm) - Length 1.5 -Post Debridement Size (cm) - Width 0.3 -Post Debridement Size (cm) - Depth 0.1 -Total Square Cm 0.45 -Wound/Ulcer Outcome Not Healed -Ulcer Cleansing Rinsed/ Irrigated with Saline -Foul Odor after Cleansing No -Bioengineered Tissue No -Topical Lidocaine (%) 5 -Bleeding Controlled with Pressure -Offloading No -Treatment Response Procedure Tolerated Well #1 sacral ulcer -Time 17:13 -Correct Patient Yes -Correct Side, Site, Position Yes -Correct Procedure Yes -Procedure Performed Yes -Post Debridement Size (cm) - Length 0.1 -Post Debridement Size (cm) - Width 0.1 -Post Debridement Size (cm) - Depth 0.1 -Total Square Cm 0.01 -Wound/Ulcer Outcome Not Healed -Ulcer Cleansing Rinsed/ Irrigated with Saline -Foul Odor after Cleansing No -Bioengineered Tissue No -Topical Lidocaine (%) 5 -Bleeding Controlled with Pressure -Offloading Yes -Treatment Response Procedure Tolerated Well [See Physician Procedure note for Specifics] Pain Scale: 0-10 Numeric [Pain] -Is Patient Pain Free? Yes Neurological: Neuro grossly intact Psych/Mental Status: Normal Affect, Appropriate, Alert and oriented to time, place, person, mood and affect Debridement Note Post-Debridement Measurements/Treatment WC - Nurse 2 - General Ulcer CM Notes Start: 03/04/18 15:52 Freq: Status: Active Protocol: Activity Type Activity Date Activity User E-Sign Co-Sign Detail Recorded Client Recorded Date Recorded By Document 03/04/18 17:12 [id number] 03/04/18 17:15 03/04/18 17:12 Wound Center Nurse 2 #3- LT LAT FOOT -Time 17:12 -Correct Patient Yes -Correct Side, Site, Position Yes -Correct Procedure Yes -Procedure Performed Yes -Type of Procedure Debridement -Clinical Debridement Subcutaneous -Post Debridement Size (cm) - Length 1.5 -Post Debridement Size (cm) - Width 0.3 -Post Debridement Size (cm) - Depth 0.1 -Total Square Cm 0.45 -Wound/Ulcer Outcome Not Healed -Ulcer Cleansing Rinsed/ Irrigated with Saline -Foul Odor after Cleansing No -Bioengineered Tissue No -Topical Lidocaine (%) 5 -Bleeding Controlled with Pressure -Offloading No -Treatment Response Procedure Tolerated Well #1 sacral ulcer -Time 17:13 -Correct Patient Yes -Correct Side, Site, Position Yes -Correct Procedure Yes -Procedure Performed Yes -Post Debridement Size (cm) - Length 0.1 -Post Debridement Size (cm) - Width 0.1 -Post Debridement Size (cm) - Depth 0.1 -Total Square Cm 0.01 -Wound/Ulcer Outcome Not Healed -Ulcer Cleansing Rinsed/ Irrigated with Saline -Foul Odor after Cleansing No -Bioengineered Tissue No -Topical Lidocaine (%) 5 -Bleeding Controlled with Pressure -Offloading Yes -Treatment Response Procedure Tolerated Well Pain Scale: 0-10 Numeric Is Patient Pain Free? Yes Wound debrided: Nonhealing ulcer left dorsal foot Laterality: Left Type of Debridement: Excisional debridement Anesthesia Used: 5% Lidocaine Gel Depth: in the subcutaneous layer Percentage of wound debrided: 100 Instrument Used: 3mm curette Tissue Removed: Slough and devitalized tissue Severity: Fat Layer Exposed Amount of bleeding with debridement: Mild Bleeding Controlled with: Pressure Patient tolerated procedure well Assessment/Plan Active Problems Stage II pressure ulcer of sacral region (Acute) COPD (chronic obstructive pulmonary disease) (Acute) Hyperlipidemia (Acute) Tobacco abuse (Acute) 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 A subcutaneous debridement was performed today. The patient tolerated the procedure well. The patients wound care will consist of: Applying optifoam over the recently healed sacral pressure ulcer for prevention of new wounds from occurring and applying hydrogel to left foot ulceration given the dry wound bed. Wound cultures were ordered to the new left dorsal foot ulcer and demonstrated staph, patient treated with a course of doxycycline. Baseline bloodwork will be considered at next visit if patient's wounds stop improving. Hold off on vascular at this time may consider at next visit if delayed wound healing. Patient educated on the importance of diet on wound healing and instructed to increase protein and vitamin C intake. Discussed with patient the importance of offloading and different offloading interventions to do to remove pressure from the sacral region. Patient verbalized understanding, however remains noncompliant with offloading. Patient will follow up at wound healing center in 1 week or sooner if needed. Encouraged smoking cessation again. This note was generated with [employer] dictation software. It may contain incorrect words, spelling, and punctuation that were not noted in checking the note before signing. Code Visit 111xxx-113xx: [id number] Lillian subq tissue 20 sq cm/<
--- NOTE | 2018-03-07 10:11 | PN.PCM_ITS ---
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 Status: Acute Current Visit: Yes Code(s): L97.522 - Non-pressure chronic ulcer of other part of left foot with fat layer exposed (3) COPD (chronic obstructive pulmonary disease) Status: Acute Current Visit: Yes Code(s): J44.9 - Chronic obstructive pulmonary disease, unspecified (4) Hyperlipidemia Status: Acute Current Visit: Yes Code(s): E78.5 - Hyperlipidemia, unspecified (5) Tobacco abuse Status: Acute Current Visit: Yes Code(s): Z72.0 - Tobacco use Type of Wound Date of Service: 03/04/18 Chief Complaint: Pressure ulcer to sacral region midline ?2 months and open blistered areas to right thigh intermittently for a couple of years, left lower extremity dorsal foot nonhealing ulcer times a couple months History of Wound: This is a 62-year-old white male who presents to the wound healing center today with complaints of pressure ulcer to midline sacral region and intermittent blisters that open up on his right posterior thigh. He has a past medical history as listed above. The patient states that after having a recent back surgery and right knee arthroscopy, he has not been as ambulatory as before and has been spending the majority of his time in his reclining chair. He states that approximately 2 months ago he noted a sore area causing him pain on his sacral region and has been applying triple antibiotic ointment and an antiseptic rinse given by his PCP on it. He also complains of intermittent bl istering that has happened on his buttocks and thigh area on and off for the past couple of years. He states that he has multiple sites that will open up as a blister, drain pus, and then heal over. He has not been seen by a production underwriter for evaluation of this. He currently has 1 open blister on his right lateral thigh and states that pus was previously draining out of it but is no longer draining at this time. He denies any signs of systemic infection at this time. He denies any fever, chills, nausea, vomiting, shortness of breath, chest pain or pressure, syncope or presyncopal episode. Progress of Wound: Patient's pressure ulcer stage II on his sacrum is healed, has not been compliant with offloading or smoking cessation. His nonhealing ulcer on his left lower extremity on the dorsal foot is improving. Denies any signs and symptoms of systemic or localized infection. - Physical Exam Vital Signs Temp Pulse Resp BP 98.7 F 75 18 142/81 H 03/04/18 16:23 12 16:23 03/04/18 16:23 03/04/18 16:23 General: Alert, Oriented x3, Cooperative, No apparent distress HEENT: Atraumatic Neck: Supple Lungs: Clear to auscultation Cardiovascular: Regular rate Extremities: No clubbing, No cyanosis, Edema - Generalized bilateral lower extremity edema, Peripheral Pulses Normal Skin: Ulcer/ Wound - Left dorsal foot ulceration with adherent slough, no signs of infection at this time, stage II sacral pressure ulcer now healed, no signs of infection at this time. Wound Measurements and Assessment WC - Nurse 1 - General Ulcer Measurement Start: 03/04/18 15:52 Freq: Status: Active Protocol: Activity Type Activity Date Activity User E-Sign Co-Sign Detail Recorded Client Recorded Date Recorded By Document 03/04/18 16:23 [facility] [id number] 03/04/18 16:31 [facility] 03/04/18 16:23 Wound Center Nurse 1 [Ulcer Assessment] #3- LT LAT FOOT -Combined with other wound No -Current Size (cm) - Length 1.7 -Current Size (cm) - Width 0.1 -Current Size (cm) - Depth 0.1 -Total Square Cm 0.17 -Photo Taken No -Epithelialization Small 1-33% -Tunneling No -Undermining/Tunneling No -Circular Undermining No -Exudate Amt None Present (0 %) -Wound Margin Distinct, Outline Attached -Granulation Amt Small (1-33%) -Granulation Quality Red -Slough/Fibrin Yes -Necrosis Amt Large (67-100%) -Necrotic Tissue Type Adherent Slough -Texture (Michelle-wound Skin Appearance) Scarring -Moisture (Michelle-wound Skin Appearance Dry/Scaly ) -Color (Michelle-wound Skin Appearance) Erythema -Temperature (Michelle-wound Skin No Abnormality Appearance) (Pt Warm) -Tenderness on Palpation (Michelle-wound No Skin Appearance) -Ulcer Cleansing Rinsed/ Irrigated with Saline -Foul Odor after Cleansing No -Anesthetic Used 5% Lidocaine Gel #1 sacral ulcer -Combined with other wound No -Current Size (cm) - Length 0.1 -Current Size (cm) - Width 0.1 -Current Size (cm) - Depth 0.1 -Total Square Cm 0.01 -Photo Taken No -Epithelialization Large 67-100% -Tunneling No -Undermining/Tunneling No -Circular Undermining No -Exudate Amt None Present (0 %) -Texture (Michelle-wound Skin Appearance) Scarring -Moisture (Michelle-wound Skin Appearance Assessed ) Maceration -Color (Michelle-wound Skin Appearance) Assessed Palor -Temperature (Michelle-wound Skin No Abnormality Appearance) (Pt Warm) -Tenderness on Palpation (Michelle-wound No Skin Appearance) -Ulcer Cleansing Rinsed/ Irrigated with Saline -Foul Odor after Cleansing No -Anesthetic Used 5% Lidocaine Gel WC - Nurse 2 - General Ulcer CM Notes Start: 03/04/18 15:52 Freq: Status: Active Protocol: Activity Type Activity Date Activity User E-Sign Co-Sign Detail Recorded Client Recorded Date Recorded By Document 03/04/18 17:12 [id number] 03/04/18 17:15 03/04/18 17:12 Wound Center Nurse 2 [Procedure/Treatment] #3- LT LAT FOOT -Time 17:12 -Correct Patient Yes -Correct Side, Site, Position Yes -Correct Procedure Yes -Procedure Performed Yes -Type of Procedure Debridement -Clinical Debridement Subcutaneous -Post Debridement Size (cm) - Length 1.5 -Post Debridement Size (cm) - Width 0.3 -Post Debridement Size (cm) - Depth 0.1 -Total Square Cm 0.45 -Wound/Ulcer Outcome Not Healed -Ulcer Cleansing Rinsed/ Irrigated with Saline -Foul Odor after Cleansing No -Bioengineered Tissue No -Topical Lidocaine (%) 5 -Bleeding Controlled with Pressure -Offloading No -Treatment Response Procedure Tolerated Well #1 sacral ulcer -Time 17:13 -Correct Patient Yes -Correct Side, Site, Position Yes -Correct Procedure Yes -Procedure Performed Yes -Post Debridement Size (cm) - Length 0.1 -Post Debridement Size (cm) - Width 0.1 -Post Debridement Size (cm) - Depth 0.1 -Total Square Cm 0.01 -Wound/Ulcer Outcome Not Healed -Ulcer Cleansing Rinsed/ Irrigated with Saline -Foul Odor after Cleansing No -Bioengineered Tissue No -Topical Lidocaine (%) 5 -Bleeding Controlled with Pressure -Offloading Yes -Treatment Response Procedure Tolerated Well [See Physician Procedure note for Specifics] Pain Scale: 0-10 Numeric [Pain] -Is Patient Pain Free? Yes Neurological: Neuro grossly intact Psych/Mental Status: Normal Affect, Appropriate, Alert and oriented to time, place, person, mood and affect Debridement Note Post-Debridement Measurements/Treatment WC - Nurse 2 - General Ulcer CM Notes Start: 03/04/18 15:52 Freq: Status: Active Protocol: Activity Type Activity Date Activity User E-Sign Co-Sign Detail Recorded Client Recorded Date Recorded By Document 03/04/18 17:12 [id number] 03/04/18 17:15 03/04/18 17:12 Wound Center Nurse 2 #3- LT LAT FOOT -Time 17:12 -Correct Patient Yes -Correct Side, Site, Position Yes -Correct Procedure Yes -Procedure Performed Yes -Type of Procedure Debridement -Clinical Debridement Subcutaneous -Post Debridement Size (cm) - Length 1.5 -Post Debridement Size (cm) - Width 0.3 -Post Debridement Size (cm) - Depth 0.1 -Total Square Cm 0.45 -Wound/Ulcer Outcome Not Healed -Ulcer Cleansing Rinsed/ Irrigated with Saline -Foul Odor after Cleansing No -Bioengineered Tissue No -Topical Lidocaine (%) 5 -Bleeding Controlled with Pressure -Offloading No -Treatment Response Procedure Tolerated Well #1 sacral ulcer -Time 17:13 -Correct Patient Yes -Correct Side, Site, Position Yes -Correct Procedure Yes -Procedure Performed Yes -Post Debridement Size (cm) - Length 0.1 -Post Debridement Size (cm) - Width 0.1 -Post Debridement Size (cm) - Depth 0.1 -Total Square Cm 0.01 -Wound/Ulcer Outcome Not Healed -Ulcer Cleansing Rinsed/ Irrigated with Saline -Foul Odor after Cleansing No -Bioengineered Tissue No -Topical Lidocaine (%) 5 -Bleeding Controlled with Pressure -Offloading Yes -Treatment Response Procedure Tolerated Well Pain Scale: 0-10 Numeric Is Patient Pain Free? Yes Wound debrided: Nonhealing ulcer left dorsal foot Laterality: Left Type of Debridement: Excisional debridement Anesthesia Used: 5% Lidocaine Gel Depth: in the subcutaneous layer Percentage of wound debrided: 100 Instrument Used: 3mm curette Tissue Removed: Slough and devitalized tissue Severity: Fat Layer Exposed Amount of bleeding with debridement: Mild Bleeding Controlled with: Pressure Patient tolerated procedure well Assessment/Plan Active Problems Stage II pressure ulcer of sacral region (Acute) COPD (chronic obstructive pulmonary disease) (Acute) Hyperlipidemia (Acute) Tobacco abuse (Acute) 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 A subcutaneous debridement was performed today. The patient tolerated the procedure well. The patients wound care will consist of: Applying optifoam over the recently healed sacral pressure ulcer for prevention of new wounds from occurring and applying hydrogel to left foot ulceration given the dry wound bed. Wound cultures were ordered to the new left dorsal foot ulcer and demonstrated staph, patient treated with a course of doxycycline. Baseline bloodwork will be considered at next visit if patient's wounds stop improving. Hold off on vascular at this time may consider at next visit if delayed wound healing. Patient educated on the importance of diet on wound healing and instructed to increase protein and vitamin C intake. Discussed with patient the importance of offloading and different offloading interventions to do to remove pressure from the sacral region. Patient verbalized understanding, however remains noncompliant with offloading. Patient will follow up at wound healing center in 1 week or sooner if needed. Encouraged smoking cessation again. This note was generated with [employer] dictation software. It may contain incorrect words, spelling, and punctuation that were not noted in checking the note before signing. Code Visit 111xxx-113xx: 20282 Lillian subq tissue 20 sq cm/<
[2018-03-25 16:10] VITALS: BP 135/76; PULSE 75; RESP 16; TEMP 36.8
--- NOTE | 2018-03-25 18:29 | PCM.WC.PN ---
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 Status: Acute Code(s): L97.522 - Non-pressure chronic ulcer of other part of left foot with fat layer exposed (3) COPD (chronic obstructive pulmonary disease) Status: Acute Code(s): J44.9 - Chronic obstructive pulmonary disease, unspecified (4) Hyperlipidemia Status: Acute Code(s): E78.5 - Hyperlipidemia, unspecified (5) Tobacco abuse Status: Acute Code(s): Z72.0 - Tobacco use Type of Wound Date of Service: 03/25/18 Chief Complaint: Pressure ulcer to sacral region midline ?2 months and open blistered areas to right thigh intermittently for a couple of years, left lower extremity dorsal foot nonhealing ulcer times a couple months History of Wound: This is a 62-year-old white male who presents to the wound healing center today with complaints of pressure ulcer to midline sacral region and intermittent blisters that open up on his right posterior thigh. He has a past medical history as listed above. The patient states that after having a recent back surgery and right knee arthroscopy, he has not been as ambulatory as before and has been spending the majority of his time in his reclining chair. He states that approximately 2 months ago he noted a sore area causing him pain on his sacral region and has been applying triple antibiotic ointment and an antiseptic rinse given by his PCP on it. He also complains of intermittent blistering that has happened on his buttocks and thigh area on and off for the past couple of years. He states that he has multiple sites that will open up as a blister, drain pus, and then heal over. He has not been seen by a deep submergence vehicle operator for evaluation of this. He currently has 1 open blister on his right lateral thigh and states that pus was previously draining out of it but is no longer draining at this time. He denies any signs of systemic infection at this time. He denies any fever, chills, nausea, vomiting, shortness of breath, chest pain or pressure, syncope or presyncopal episode. Progress of Wound: Patient's pressure ulcer stage II on his sacrum remains healed, has not been compliant with offloading or smoking cessation. His nonhealing ulcer on his left lower extremity on the dorsal foot is improving in size. Denies any signs and symptoms of systemic or localized infection. - Physical Exam Vital Signs Temp Pulse Resp BP 98.2 F 75 16 135/76 H 03/25/18 16:10 03/25/18 16:10 03/25/18 16:10 03/25/18 16:10 General: Alert, Oriented x3, Cooperative, No apparent distress HEENT: Atraumatic Oral: Moist Mucosa Lungs: Clear to auscultation Cardiovascular: Regular rate Abdomen: Soft, Non Tender Extremities: No clubbing, No cyanosis, Diminished Peripheral Pulses, Edema - Generalized bilateral lower extremity edema Skin: Ulcer/ Wound - Left foot dorsal nonhealing ulceration with adherent slough, no drainage or malodor at this time. Musculoskeletal: No Tenderness to Palpation of Joints or Extremities Neurological: Neuro grossly intact Psych/Mental Status: Normal Affect, Appropriate, Alert and oriented to time, place, person, mood and affect Debridement Note Post-Debridement Measurements/Treatment WC - Nurse 2 - General Ulcer CM Notes Start: 03/04/18 15:52 Freq: Status: Active Protocol: Activity Type Activity Date Activity User E-Sign Co-Sign Detail Recorded Client Recorded Date Recorded By Document 03/04/18 17:12 [id number] 03/04/18 17:15 Document 03/25/18 16:36 [id number] 03/25/18 16:37 03/04/18 03/25/18 17:12 16:36 Wound Center Nurse 2 #3- LT LAT FOOT -Time 17:12 16:36 -Correct Patient Yes Yes -Correct Side, Site, Position Yes Yes -Correct Procedure Yes Yes -Procedure Performed Yes Yes -Type of Procedure Debridement Debridement -Clinical Debridement Subcutaneous Subcutaneous -Post Debridement Size (cm) - Length 1.5 0.3 -Post Debridement Size (cm) - Width 0.3 0.2 -Post Debridement Size (cm) - Depth 0.1 0.1 -Total Square Cm 0.45 0.06 -Wound/Ulcer Outcome Not Healed Not Healed -Ulcer Cleansing Rinsed/ Not Cleansed Irrigated with Saline -Foul Odor after Cleansing No No -Bioengineered Tissue No No -Topical Lidocaine (%) 5 -Bleeding Controlled with Pressure NA -Offloading No No -Treatment Response Procedure Procedure Tolerated Well Tolerated Well #1 sacral ulcer -Time 17:13 -Correct Patient Yes -Correct Side, Site, Position Yes -Correct Procedure Yes -Procedure Performed Yes -Post Debridement Size (cm) - Length 0.1 -Post Debridement Size (cm) - Width 0.1 -Post Debridement Size (cm) - Depth 0.1 -Total Square Cm 0.01 -Wound/Ulcer Outcome Not Healed -Ulcer Cleansing Rinsed/ Irrigated with Saline -Foul Odor after Cleansing No -Bioengineered Tissue No -Topical Lidocaine (%) 5 -Bleeding Controlled with Pressure -Offloading Yes -Treatment Response Procedure Tolerated Well Pain Scale: 0-10 Numeric Is Patient Pain Free? Yes Yes Wound debrided: Nonhealing ulcer to left dorsal foot Laterality: Left Type of Debridement: Excisional debridement Anesthesia Used: 5% Lidocaine Gel Depth: in the subcutaneous layer Percentage of wound debrided: 100 Instrument Used: 3mm curette Tissue Removed: Slough and devitalized tissue Severity: Fat Layer Exposed Amount of bleeding with debridement: Mild Bleeding Controlled with: Pressure Patient tolerated procedure well Assessment/Plan Assessment: see above diagnoses Plan: The patient was seen and examined at the wound center today and was updated on the plan of care. A subcutaneous debridement was performed today. The patient tolerated the procedure well. The patients wound care will consist of: Applying optifoam over the recently healed sacral pressure ulcer for prevention of new wounds from occurring and applying moistened Nanda to left foot ulceration. Wound cultures were ordered to the new left dorsal foot ulcer and demonstrated staph, patient treated with a course of doxycycline and completed this. Baseline bloodwork will be considered at next visit if patient's wounds stop improving. Hold off on vascular at this time may consider at next visit if delayed wound healing. Patient educated on the importance of diet on wound healing and instructed to increase protein and vitamin C intake. Discussed with patient the importance of offloading and different offloading interventions to do to remove pressure from the sacral region. Patient verbalized understanding, however remains noncompliant with offloading. Patient will follow up at wound healing center in 1 week or sooner if needed. Encouraged smoking cessation again. This note was generated with [employer] software. It may contain incorrect words, spelling, and punctuation that were not noted in checking the note before signing. Code Visit 111xxx-113xx: 99159 Lillian subq tissue 20 sq cm/<
== END 2018-03-29 23:59 ==
LOC: WC 16:00
PROVIDERS: Visit Provider Nurse Practitioner Family
DX: L97.522 Non-pressure chronic ulcer of other part of left foot with fat layer exposed (principal); J44.9 Chronic obstructive pulmonary disease, unspecified; E78.5 Hyperlipidemia, unspecified; Z72.0 Tobacco use; Z91.19 Patient's noncompliance with other medical treatment and regimen
CPT/HCPCS: 11042

== ENCOUNTER 2018-04-01 16:26 | Outpatient (RCR) | payer BC, MEDICARE, SELFPAY ==
[2018-03-30 00:55] VITALS: BP 135/76; PULSE 75; RESP 16; TEMP 36.8
[2018-04-01 16:11] VITALS: BP 143/78; PULSE 81; RESP 18; TEMP 36.9
--- NOTE | 2018-04-01 20:49 | PCM.WC.PN ---
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 Status: Acute Current Visit: Yes Code(s): L97.522 - Non-pressure chronic ulcer of other part of left foot with fat layer exposed (2) COPD (chronic obstructive pulmonary disease) Status: Acute Current Visit: No Code(s): J44.9 - Chronic obstructive pulmonary disease, unspecified (3) Hyperlipidemia Status: Acute Current Visit: No Code(s): E78.5 - Hyperlipidemia, unspecified (4) Hypothyroidism Status: Acute Current Visit: No Code(s): E03.9 - Hypothyroidism, unspecified (5) Stage II pressure ulcer of sacral region Status: Acute Current Visit: Yes Code(s): L89.152 - Pressure ulcer of sacral region, stage 2 (6) Tobacco abuse Status: Acute Current Visit: Yes Code(s): Z72.0 - Tobacco use Type of Wound Date of Service: 04/01/18 Chief Complaint: Pressure ulcer to sacral region midline ?2 months and open blistered areas to right thigh intermittently for a couple of years, left lower extremity dorsal foot nonhealing ulcer times a couple months History of Wound: This is a 62-year-old white male who presents to the wound healing center today with complaints of pressure ulcer to midline sacral region and intermittent blisters that open up on his right posterior thigh. He has a past medical history as listed above. The patient states that after having a recent back surgery and right knee arthroscopy, he has not been as ambulatory as before and has been spending the majority of his time in his reclining chair. He states that approximately 2 months ago he noted a sore area causing him pain on his sacral region and has been applying triple antibiotic ointment and an antiseptic rinse given by his PCP on it. He also complains of intermittent blistering that has happened on his buttocks and thigh area on and off for the past couple of years. He states that he has multiple sites that will open up as a blister, drain pus, and then heal over. He has not been seen by a probation and parole officer for evaluation of this. He currently has 1 open blister on his right lateral thigh and states that pus was previously draining out of it but is no longer draining at this time. He denies any signs of systemic infection at this time. He denies any fever, chills, nausea, vomiting, shortness of breath, chest pain or pressure, syncope or presyncopal episode. Progress of Wound: Patient's pressure ulcer stage II on his sacrum and his nonhealing ulcer to left foot is healed, has not been compliant with offloading or smoking cessation. Denies any signs and symptoms of systemic or localized infection. - Physical Exam Vital Signs Temp Pulse Resp BP 98.4 F 81 18 143/78 H 04/01/18 16:11 04/01/18 16:11 04/01/18 16:11 04/01/18 16:11 General: Alert, Oriented x3, Cooperative, No apparent distress HEENT: Atraumatic Oral: Moist Mucosa Lungs: Clear to auscultation, Normal air movement Cardiovascular: Regular rate, Regular Rhythm Abdomen: Soft, Non Tender Extremities: No clubbing, No cyanosis, Diminished Peripheral Pulses, Edema - generalized BLLE edema Skin: Ulcer/ Wound - ulcerations to sacrum and left foot are healed and continue to have epithialization with no signs of infection at this time. Wound Measurements and Assessment WC - Nurse 1 - General Ulcer Measurement Start: 04/01/18 16:02 Freq: Status: Active Protocol: Activity Type Activity Date Activity User E-Sign Co-Sign Detail Recorded Client Recorded Date Recorded By Document 04/01/18 16:02 [place] [id number] 04/01/18 16:11 [place] 04/01/18 16:02 Wound Center Nurse 1 [Ulcer Assessment] #3- LT LAT FOOT -Combined with other wound No -Current Size (cm) - Length 0.1 -Current Size (cm) - Width 0.1 -Current Size (cm) - Depth 0.1 -Total Square Cm 0.01 -Photo Taken No -Epithelialization Large 67-100% -Tunneling No -Undermining/Tunneling No -Exudate Amt None Present (0 %) -Granulation Amt Large (67-100%) -Granulation Quality Pale [place] -Slough/Fibrin No -Texture (Michelle-wound Skin Appearance) Assessed Scarring -Moisture (Michelle-wound Skin Appearance Assessed ) -Color (Michelle-wound Skin Appearance) Assessed Hemosiderin Staining -Temperature (Michelle-wound Skin No Abnormality Appearance) (Pt Warm) -Tenderness on Palpation (Michelle-wound No Skin Appearance) -Ulcer Cleansing Wound Cleanser -Foul Odor after Cleansing No -Anesthetic Used 4% Lidocaine Solution [Edema Assessment] -Left Calf (cm) 37 -Point of Measurement (cm from the 23.5 medial instep) WC - Nurse 2 - General Ulcer CM Notes Start: 04/01/18 16:02 Freq: Status: Active Protocol: Activity Type Activity Date Activity User E-Sign Co-Sign Detail Recorded Client Recorded Date Recorded By Document 04/01/18 16:34 [id number] 04/01/18 16:34 04/01/18 16:34 Wound Center Nurse 2 [Procedure/Treatment] #3- LT LAT FOOT -Time 16:34 -Correct Patient No -Correct Side, Site, Position No -Correct Procedure No -Procedure Performed No -Clinical Debridement Selective -Post Debridement Size (cm) - Length 0.1 -Post Debridement Size (cm) - Width 0.1 -Post Debridement Size (cm) - Depth 0.1 -Total Square Cm 0.01 -Wound/Ulcer Outcome Healed- Epithelialized -Ulcer Cleansing Not Cleansed -Foul Odor after Cleansing No -Bioengineered Tissue No [See Physician Procedure note for Specifics] Pain Scale: 0-10 Numeric [Pain] -Is Patient Pain Free? Yes Neurological: Neuro grossly intact Psych/Mental Status: Normal Affect, Appropriate, Alert and oriented to time, place, person, mood and affect Debridement Note Post-Debridement Measurements/Treatment DILCIA - Nurse 2 - General Ulcer CM Notes Start: 04/01/18 16:02 Freq: Status: Active Protocol: Activity Type Activity Date Activity User E-Sign Co-Sign Detail Recorded Client Recorded Date Recorded By Document 04/01/18 16:34 [id number] 04/01/18 16:34 04/01/18 16:34 Wound Center Nurse 2 #3- LT LAT FOOT -Time 16:34 -Correct Patient No -Correct Side, Site, Position No -Correct Procedure No -Procedure Performed No -Clinical Debridement Selective -Post Debridement Size (cm) - Length 0.1 -Post Debridement Size (cm) - Width 0.1 -Post Debridement Size (cm) - Depth 0.1 -Total Square Cm 0.01 -Wound/Ulcer Outcome Healed- Epithelialized -Ulcer Cleansing Not Cleansed -Foul Odor after Cleansing No -Bioengineered Tissue No Pain Scale: 0-10 Numeric Is Patient Pain Free? Yes No debridement was completed today Assessment/Plan Active Problems Stage II pressure ulcer of sacral region (Acute) Tobacco abuse (Acute) 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 All of his ulcers are now healed without any signs of infection. May use ted for one more week to protect the wound surface. DIscussed prevention of new wounds from occuring. Discussed the importance of smoking cessation as well. This note was generated with Clipaboutation software. It may contain incorrect words, spelling, and punctuation that were not noted in checking the note before signing. Code Visit Office Visits / Consults: [id number] OV L3 Est
--- NOTE | 2018-04-02 09:56 | PN.PCM_ITS ---
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 Status: Acute Current Visit: Yes Code(s): L97.522 - Non-pressure chronic ulcer of other part of left foot with fat layer exposed (2) COPD (chronic obstructive pulmonary disease) Status: Acute Current Visit: No Code(s): J44.9 - Chronic obstructive pulmonary disease, unspecified (3) Hyperlipidemia Status: Acute Current Visit: No Code(s): E78.5 - Hyperlipidemia, unspecified (4) Hypothyroidism Status: Acute Current Visit: No Code(s): E03.9 - Hypothyroidism, unspecified (5) Stage II pressure ulcer of sacral region Status: Acute Current Visit: Yes Code(s): L89.152 - Pressure ulcer of sacral region, stage 2 (6) Tobacco abuse Status: Acute Current Visit: Yes Code(s): Z72.0 - Tobacco use Type of Wound Date of Service: 04/01/18 Chief Complaint: Pressure ulcer to sacral region midline ?2 months and open blistered areas to right thigh intermittently for a couple of years, left lower extremity dorsal foot nonhealing ulcer times a couple months History of Wound: This is a 62-year-old white male who presents to the wound healing center today with complaints of pressure ulcer to midline sacral region and intermittent blisters that open up on his right posterior thigh. He has a past medical history as listed above. The patient states that after having a recent back surgery and right knee arthroscopy, he has not been as ambulatory as before and has been spending the majority of his time in his reclining chair. He states that approximately 2 months ago he noted a sore area causing him pain on his sacral region and has been applying triple antibiotic ointment and an antiseptic rinse given by his PCP on it. He also complains of intermittent blistering that has happened on his buttocks and thigh area on and off for the past couple of years. He states that he has multiple sites that will open up as a blister, drain pus, and then heal over. He has not been seen by a family therapist for evaluation of this. He currently has 1 open blister on his right lateral thigh and states that pus was previously draining out of it but is no longer draining at this time. He denies any signs of systemic infection at this time. He denies any fever, chills, nausea, vomiting, shortness of breath, chest pain or pressure, syncope or presyncopal episode. Progress of Wound: Patient's pressure ulcer stage II on his sacrum and his nonhealing ulcer to left foot is healed, has not been compliant with offloading or smoking cessation. Denies any signs and symptoms of systemic or localized infection. - Physical Exam Vital Signs Temp Pulse Resp BP 98.4 F 81 18 143/78 H 04/01/18 16:11 04/01/18 16:11 04/01/18 16:11 04/01/18 16:11 General: Alert, Oriented x3, Cooperative, No apparent distress HEENT: Atraumatic Oral: Moist Mucosa Lungs: Clear to auscultation, Normal air movement Cardiovascular: Regular rate, Regular Rhythm Abdomen: Soft, Non Tender Extremities: No clubbing, No cyanosis, Diminished Peripheral Pulses, Edema - generalized BLLE edema Skin: Ulcer/ Wound - ulcerations to sacrum and left foot are healed and continue to have epithialization with no signs of infection at this time. Wound Measurements and Assessment WC - Nurse 1 - General Ulcer Measurement Start: 04/01/18 16:02 Freq: Status: Active Protocol: Activity Type Activity Date Activity User E-Sign Co-Sign Detail Recorded Client Recorded Date Recorded By Document 04/01/18 16:02 [place] [id number] 04/01/18 16:11 [place] 04/01/18 16:02 Wound Center Nurse 1 [Ulcer Assessment] #3- LT LAT FOOT -Combined with other wound No -Current Size (cm) - Length 0.1 -Current Size (cm) - Width 0.1 -Current Size (cm) - Depth 0.1 -Total Square Cm 0.01 -Photo Taken No -Epithelialization Large 67-100% -Tunneling No -Undermining/Tunneling No -Exudate Amt None Present (0 %) -Granulation Amt Large (67-100%) -Granulation Quality Pale [place] -Slough/Fibrin No -Texture (Michelle-wound Skin Appearance) Assessed Scarring -Moisture (Michelle-wound Skin Appearance Assessed ) -Color (Michelle-wound Skin Appearance) Assessed Hemosiderin Staining -Temperature (Michelle-wound Skin No Abnormality Appearance) (Pt Warm) -Tenderness on Palpation (Michelle-wound No Skin Appearance) -Ulcer Cleansing Wound Cleanser -Foul Odor after Cleansing No -Anesthetic Used 4% Lidocaine Solution [Edema Assessment] -Left Calf (cm) 37 -Point of Measurement (cm from the 23.5 medial instep) WC - Nurse 2 - General Ulcer CM Notes Start: 04/01/18 16:02 Freq: Status: Active Protocol: Activity Type Activity Date Activity User E-Sign Co-Sign Detail Recorded Client Recorded Date Recorded By Document 04/01/18 16:34 [id number] 04/01/18 16:34 04/01/18 16:34 Wound Center Nurse 2 [Procedure/Treatment] #3- LT LAT FOOT -Time 16:34 -Correct Patient No -Correct Side, Site, Position No -Correct Procedure No -Procedure Performed No -Clinical Debridement Selective -Post Debridement Size (cm) - Length 0.1 -Post Debridement Size (cm) - Width 0.1 -Post Debridement Size (cm) - Depth 0.1 -Total Square Cm 0.01 -Wound/Ulcer Outcome Healed- Epithelialized -Ulcer Cleansing Not Cleansed -Foul Odor after Cleansing No -Bioengineered Tissue No [See Physician Procedure note for Specifics] Pain Scale: 0-10 Numeric [Pain] -Is Patient Pain Free? Yes Neurological: Neuro grossly intact Psych/Mental Status: Normal Affect, Appropriate, Alert and oriented to time, place, person, mood and affect Debridement Note Post-Debridement Measurements/Treatment DILCIA - Nurse 2 - General Ulcer CM Notes Start: 04/01/18 16:02 Freq: Status: Active Protocol: Activity Type Activity Date Activity User E-Sign Co-Sign Detail Recorded Client Recorded Date Recorded By Document 04/01/18 16:34 [id number] 04/01/18 16:34 04/01/18 16:34 Wound Center Nurse 2 #3- LT LAT FOOT -Time 16:34 -Correct Patient No -Correct Side, Site, Position No -Correct Procedure No -Procedure Performed No -Clinical Debridement Selective -Post Debridement Size (cm) - Length 0.1 -Post Debridement Size (cm) - Width 0.1 -Post Debridement Size (cm) - Depth 0.1 -Total Square Cm 0.01 -Wound/Ulcer Outcome Healed- Epithelialized -Ulcer Cleansing Not Cleansed -Foul Odor after Cleansing No -Bioengineered Tissue No Pain Scale: 0-10 Numeric Is Patient Pain Free? Yes No debridement was completed today Assessment/Plan Active Problems Stage II pressure ulcer of sacral region (Acute) Tobacco abuse (Acute) 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 All of his ulcers are now healed without any signs of infection. May use ted for one more week to protect the wound surface. DIscussed prevention of new wounds from occuring. Discussed the importance of smoking cessation as well. This note was generated with [employer] software. It may contain incorrect words, spelling, and punctuation that were not noted in checking the note before signing. Code Visit Office Visits / Consults: [id number] OV L3 Est
== END 2018-04-29 23:59 ==
LOC: WC 16:26
PROVIDERS: Visit Provider Nurse Practitioner Family
DX: Z09 Encounter for follow-up examination after completed treatment for conditions other than malignant neoplasm (principal); Z72.0 Tobacco use; J44.9 Chronic obstructive pulmonary disease, unspecified; E78.5 Hyperlipidemia, unspecified
CPT/HCPCS: 99212; G0463

== ENCOUNTER 2022-02-08 10:57 | Emergency (ER) | payer BC, MEDICARE, SELFPAY ==
[2022-02-08 10:59] VITALS: BP 93/75; PULSE 80; RESP 16; TEMP 35.7; O2SAT 95; BMI 33.5
--- NOTE | 2022-02-08 11:20 | EX.ED.DYSGE1 ---
HPI History of Present Illness Chief Complaint: Wound Informant: patient Onset/Context/Timing Onset: Month(s) (1) Context: Gradual Onset Timing: Continuous Quality: Dull Location: Right buttock Worsened by: [id number] cream Relieved by: Nothing Narrative Narrative: Patient presents with open wound to his right buttock that has been getting worse over the past month. states that the wound is getting deeper. She has been using an [id number] bedsore cream which she thinks is making it worse. Patient denies any fevers or chills. Patient denies any nausea or vomiting. Patient denies any discharge or drainage. [facility] Medical History (Updated 02/08/22 @ 14:[address] Basilio Basurto DO) Pressure sore Spinal cord injury Home Medications baclofen 10 mg tablet 15 mg PO TID 12/17/17 [History Last Taken Unknown] esomeprazole magnesium 40 mg capsule,delayed release (Nexium) 40 mg PO DAILY 12/17/17 [History Last Taken Unknown] levothyroxine 125 mcg tablet 125 mcg PO DAILY 12/17/17 [History Last Taken Unknown] tamsulosin 0.4 mg capsule 0.4 mg PO BID 12/17/17 [History Last Taken Unknown] acetaminophen 650 mg tablet 650 mg PO Q8H 02/08/22 [History Last Taken Unknown] amoxicillin 875 mg-potassium clavulanate 125 mg tablet 875 mg PO Q12H #20 TABLETS 02/08/22 [Rx Last Taken Unknown] cetirizine 10 mg tablet (Allergy Relief (cetirizine)) 10 mg PO DAILY 02/08/22 [History Last Taken Unknown] icosapent ethyl 1 gram capsule (Vascepa) 2 g PO BID 02/08/22 [History Last Taken Unknown] sulfamethoxazole 800 mg-trimethoprim 160 mg tablet 1 tab PO BID #20 TABLETS 02/08/22 [Rx Last Taken Unknown] Allergy/AdvReac Type Severity Reaction Status Date / Time Environmental Allergies: Allergy NEEDS Verified 02/08/22 10:59 Uncoded FOLLOW-UP [dust] pollen extracts Allergy NEEDS Verified 02/08/22 10:59 FOLLOW-UP Surgical History (Updated 02/08/22 @ 11:[address] Basilio Basurto DO) Hx of spinal surgery Social History Smoking Status: Current every day smoker tobacco type: cigarettes ROS ROS ED Constitutional Constitutional ED: Denies chills or fever(s) Eyes Eyes: Denies blurry vision or change in vision ENT ENT ED: Denies rhinorrhea or sore throat Cardiovascular Cardiovascular: Denies chest pain or palpitations Respiratory/Chest Respiratory/Chest: Denies cough or dyspnea Gastrointestinal Gastrointestinal: Denies nausea or vomiting Genitourinary Genitourinary ED: Denies dysuria or hematuria Musculoskeletal Musculoskeletal: Reports back pain; Denies neck pain Integumentary Denies abscess or rash Neurologic Neurologic: Denies headache(s) or weakness Allergic/Immunologic Allergic/Immunologic ED: Denies mouth swelling or urticaria EXAM Physical Exam Const Vital Signs: 02/08/22 10:59 02/08/22 12:13 02/08/22 13:48 Temperature 96.3 F L 96.8 F L 97.1 F L Temperature Source Temporal Temporal Temporal Pulse Rate 80 76 74 Respiratory Rate 16 14 18 Blood Pressure 93/75 128/107 H 115/62 Blood Pressure Mean 81 114 79 Pulse Ox 95 99 98 Oxygen Delivery Method Room Air Room Air Room Air Positive well nourished and well developed General Appearance ED: well developed and NAD HEENT Reports moist mucous membranes Neck supple and no JVD Neuro oriented x3 and CN's II-XII intact bilaterally Sensorium / Orientation: alert Psych mental status grossly normal Skin Skin Narrative: There is a stage II decubitus ulcer in the right gluteal area. It appears to go into the subcutaneous tissue. There is no purulent discharge or drainage. There is some mild tenderness over the area. There is minimal surrounding erythema. MDM MDM MDM Narrative Medical decision making narrative: CBC shows a mild leukocytosis of 17.4. Comprehensive metabolic profile was essentially within normal limits. Urinalysis shows a leukocyte esterases of 100 with 10-25 white blood cells and 4+ bacteria. Portable chest x-ray is obtained. There is 1 view. On my interpretation, there is a questionable right lower lobe infiltrate. Radiologist also interpreted the x-ray and agrees. CT scan of the abdomen and pelvis was obtained. There is a right buttock and perineal ulceration. There is a small developing fluid collection that be developing an early abscess. This was interpreted by the radiologist and reviewed by myself. Wound cultures were obtained. Urine culture was obtained. Patient was started on Zosyn here. The wound was cleaned and dressed. I think the patient is safe to be discharged home. Patient is able to swallow oral antibiotics. Patient was started on Augmentin and Bactrim. Patient was instructed to follow-up with the wound care center. Patient was instructed return if worse in any way. Patient understood and was agreeable with the plan. All questions were answered. Lab Data Attestation: I reviewed the patient's lab results. Labs: Laboratory Results - last 24 hr 02/08/22 02/08/22 02/08/22 12:02 12:02 13:12 WBC 17.4 H RBC 4.47 L Hgb 12.7 L Hct 39.6 L MCV 88.6 MCH 28.4 MCHC 32.1 RDW Std Deviation 48.9 H RDW Coeff of Josue 14.9 H Plt Count 410 MPV 9.9 Immature Gran % (Auto) 1.100 H Neut % (Auto) 78.6 H Lymph % (Auto) 12.1 L [place] % (Auto) 7.6 Eos % (Auto) 0.3 Baso % (Auto) 0.3 Absolute Neuts (auto) 13.7 H Absolute Lymphs (auto) 2.11 Nucleated RBC % 0 Sodium 138 Potassium 3.4 L Chloride 103 Carbon Dioxide 28.0 Anion Gap 7 BUN 8 Creatinine 0.62 L Estim Creat Clear Calc 107.19 Est GFR (MDRD) Af Amer 166 Est GFR (MDRD) Non-Af 137 BUN/Creatinine Ratio 12.8 Glucose 107 H Calcium 9.0 Total Bilirubin 0.40 AST 12 L ALT 16 Alkaline Phosphatase 98 Total Protein 7.2 Albumin 2.0 L Globulin 5.2 H Albumin/Globulin Ratio 0.4 L Urine Color [place] Urine Clarity Cloudy Urine pH 8.0 Ur Specific [place] 1.010 Urine Protein 30 H Urine Glucose (UA) Normal Urine Ketones 5 H Urine Occult Blood 50 H Urine Nitrite Negative Urine Bilirubin Negative Urine Urobilinogen 8 H Ur Leukocyte Esterase 100 H Urine RBC 0 SEEN Urine WBC 10-25 SEEN Ur Squamous Epith Cells 0 SEEN Urine Bacteria 4+ Urine Mucus 0 SEEN Radiography Diagnostic Testing: Clinical Impression(s) from Imaging Studies Abdomen/Pelvis CT 02/08/22 11:26 IMPRESSION: 1. Right buttock and perineal ulceration with subcutaneous and deep soft tissues edema and pockets of air extending posterior to the right hip region. Small fluid collection consistent with early abscess formation. 2. Thickening of the bladder wall probably due to underdistention. Cystitis cannot be excluded. Electronically Signed: Kervin Meek MD at 13:04 EST , Chest X-Ray 02/08/22 12:40 IMPRESSION: Vague right lower lobe opacity could represent early infiltrate. Electronically Signed: Kervin Meek MD at 13:05 EST , Discharge Plan Triage Chief Complaint: Wound ED Provider: Basilio Basurto Dx/Rx/DC Orders Clinical Impression: Stage II pressure ulcer of sacral region, Urinary tract infection Instructions: ED Bladder Infection, Male (Adult), ED Wound Care Prescriptions: New sulfamethoxazole-trimethoprim [sulfamethoxazole-trimethoprim] 1 TABLET tablet 1 tab PO BID Qty: 20 0RF amoxicillin-pot clavulanate [amoxicillin-pot clavulanate] 875 MG tablet 875 mg PO Q12H Qty: 20 0RF No Action tamsulosin 0.4 MG capsule 0.4 mg PO BID baclofen 10 MG tablet 15 mg PO TID esomeprazole magnesium [Nexium] 40 MG capsule 40 mg PO DAILY levothyroxine 125 MCG tablet 125 mcg PO DAILY acetaminophen 650 mg Tablet 650 mg PO Q8H icosapent ethyl [Vascepa] 1 gram Capsule 2 g PO BID cetirizine [Allergy Relief (cetirizine)] 10 mg Tablet 10 mg PO DAILY Primary Care Provider: Brian Zimmerman Referrals: Brian Zimmerman MD [Primary Care Provider] - 3-5 Days Center,Wound [Non-Staff] - 3-5 Days Disposition Disposition: Home, Self Care
--- NOTE | 2022-02-08 11:26 | CT_ITS ---
INDICATION: Pelvic pain EXAMINATION: CT ABDOMEN AND PELVIS WITH CONTRAST - CT Abdomen And Pelvis W/ Contrast Injection TECHNIQUE: Helically acquired images were obtained of the abdomen and pelvis following IV contrast. A radiation dose optimization technique was used for this scan. CTDI 43.3, total DLP: 1300 IV Contrast dosage and agent: Oral contrast: None. COMPARISON: None. FINDINGS: LOWER CHEST: Stranding/scarring in the right lower lobe and calcified granuloma. No cardiomegaly or pericardial effusion. LIVER: Homogeneous. No focal mass. GALLBLADDER AND BILIARY TREE: No calcified gallstones. Contracted gallbladder. No intra- or extrahepatic biliary ductal dilation. PANCREAS: No focal cystic or solid mass. SPLEEN: Normal size without focal cystic or solid mass. ADRENAL GLANDS: No nodules. KIDNEYS AND URETERS: Normal renal size and position. No hydronephrosis. PERITONEUM: No ascites or free air. No other fluid collection. BOWEL: No evidence of acute appendicitis. No stomach or bowel distension. No focal inflammatory change. LYMPH NODES: No enlarged mesenteric or retroperitoneal lymph nodes. VESSELS: Diffuse emphysematous calcifications and iliac arteries without evidence of aneurysm. URINARY BLADDER: Diffuse thickening of the bladder wall could be due to underdistention. Cystitis cannot be extruded. REPRODUCTIVE ORGANS: No pelvic masses. ABDOMINAL WALL: Bilateral inguinal hernias containing fat. Right buttock soft tissue ulceration with pockets of air extending deep in the soft tissues close to the perineal region with soft tissue swelling and edema extending laterally posterior to the right hip. Small fluid collection measuring about 3 cm could consistent early abscess formation (axial images 141-145 series 2). BONES: No lytic or blastic abnormality. CT/Abdomen/Pelvis W IV Cont ONLY IMPRESSION: 1. Right buttock and perineal ulceration with subcutaneous and deep soft tissues edema and pockets of air extending posterior to the right hip region. Small fluid collection consistent with early abscess formation. 2. Thickening of the bladder wall probably due to underdistention. Cystitis cannot be excluded. Electronically Signed: Kervin Meek MD at 13:04 [facility] ,
[2022-02-08 12:13] VITALS: BP 128/107; PULSE 76; RESP 14; TEMP 36; O2SAT 99
[2022-02-08 12:14] LABS: Absolute Lymphocyte Count 2.11 X10^3/uL (0.83-4.51); Absolute Neutrophil Count 13.7 X10^3/uL (2.0-7.7); Basophil# 0.06 X10^3/uL; Basophil% 0.3 % (0-1); Eosinophil# 0.05 X10^3/uL; Eosinophils% 0.3 % (0-5); Hematocrit 39.6 % (40-54); Hemoglobin 12.7 g/dL (13.0-16.5); Lymphocyte # 2.11 X10^3/ul (0.83-4.51); Lymphocyte % 12.1 % (19-41); Mean Corp Hgb Conc 32.1 g/dL (32-36); Mean Corpuscular Hgb 28.4 pg (27.0-32.0); Mean Corpuscular Volume 88.6 fL (80-94); Mean Platelet Vol. 9.9 fl (6.2-12.0); Monocyte# 1.33 X10^3/uL; Monocyte% 7.6 % (0-10); NRBC Flagged by Analyzer 0 % (0-5); Neutrophil # 13.68 X10^3/uL (2.7-7.7); Neutrophil % 78.6 % (47-70); Platelet Count 410 K/mm3 (150-450); RBC Distribution Width CV 14.9 % (11.6-14.6); RBC Distribution Width SD 48.9 fl (35.1-43.9); Red Blood Count 4.47 M/mm3 (4.6-6.2); White Blood Count 17.4 K/mm3 (4.4-11.0)
[2022-02-08 12:24] LABS: ALB/GLOB Ratio 0.4 RATIO (0.9-2.4); AST(SGOT) 12 U/L (15-37); Alanine Aminotransfer ALT/SGPT 16 U/L (16-61); Alkaline Phosphatase 98 U/L (45-117); Anion Gap 7 (5-15); BUN 8 mg/dL (7-18); BUN/Creat Ratio 12.8 RATIO (10-20); Chloride 103 mmol/L (98-107); Creatinine, Serum 0.62 mg/dL (0.70-1.30); EST Glomerular Filtration Rate 137 mL/min (>60); Est Glom Filt Rate - Afr Amer 166 mL/min (>60); Estimated Creatinine Clearance 107.19 ml/min; Globulin 5.2 g/dL (2.2-4.2); Glucose 107 mg/dL (74-106); Potassium 3.4 mmol/L (3.5-5.1); Protein, Total 7.2 g/dL (6.4-8.2); Sodium Level 138 mmol/L (136-145)
--- NOTE | 2022-02-08 12:40 | RAD_ITS ---
INDICATION: COUGH, BED SORE EXAMINATION/TECHNIQUE: X-RAY - XR Chest 1 View COMPARISON: None. FINDINGS: LINES/DEVICES: None. LUNGS: Vague opacity in the right lung base obscuring the left hemidiaphragm concerning for early infiltrate. No evidence of pleural effusions. MEDIASTINUM AND CARDIOVASCULAR STRUCTURES: Cardiac silhouette not enlarged. Central airways and mediastinal contour are unremarkable. BONES AND SOFT TISSUES: Fusion of the lower cervical spine with plate and screws. RAD/Chest 1 View (Portable) IMPRESSION: Vague right lower lobe opacity could represent early infiltrate. Electronically Signed: Kervin Meek MD at 13:05 EST ,
[2022-02-08 13:21] LABS: Mucous, Urine 0 SEEN /hpf (<or=2+); Red Blood Cells-Urine 0 SEEN /hpf (0-5); Squamous Epithelial Cells - UA 0 SEEN /hpf (0-5)
[2022-02-08 13:22] LABS: Color, Urine Amber (Yellow); Glucose, Dipstick Normal (Normal); Ketone-Dipstick 5 mg/dl (Negative); Leukocyte Esterase-Dipstick 100 /ul (Negative); Nitrite-Dipstick Negative (Negative); Occult Blood-Urine 50 /ul (Negative); Protein-Dipstick 30 mg/dl (Negative); Urine Bilirubin Dipstick Negative (Negative); Urine Urobilinogen 8 mg/dl (Normal)
[2022-02-08 13:29] LABS: Urine Clarity Cloudy (Clear)
[2022-02-08 13:37] LABS: Bacteria 4+ /hpf (None Seen); White Blood Cells 10-25 SEEN /hpf (0-5)
[2022-02-08 13:48] VITALS: BP 115/62; PULSE 74; RESP 18; TEMP 36.2; O2SAT 98
--- NOTE | 2022-02-08 14:57 | NURSING ---
CALLED [facility], ETA IS 30 MIN
[2022-02-08 14:59] VITALS: BP 111/62; PULSE 74; RESP 14; O2SAT 99
== END 2022-02-08 15:42 | disposition home or self-care (01) ==
PROVIDERS: Emergency Provider Emergency Medicine; PCP Family Medicine; Visit Provider Emergency Medicine
DX: L89.152 Pressure ulcer of sacral region, stage 2 (principal); N39.0 Urinary tract infection, site not specified; F17.210 Nicotine dependence, cigarettes, uncomplicated; Z79.899 Other long term (current) drug therapy
CPT/HCPCS: 71045; 74177; 80053; 81001; 85025; 96374; 99285; Q9967; A4216

== ENCOUNTER 2022-03-28 08:15 | Outpatient (RCR) | payer BC, MEDICARE, SELFPAY ==
[2022-02-28 09:40] VITALS: BMI 35.5
[2022-02-28 09:44] VITALS: BP 94/41; PULSE 86; RESP 16
--- NOTE | 2022-02-28 10:35 | HP.PCM_ITS ---
History of Present Illness Date of Service: 02/28/22 Chief Complaint: Pressure ulcer to right buttock in sacral region History of Wound: This is a 62-year-old white male who presents to the wound healing center today with complaints of pressure ulcer to right buttock in sacral region. He is accompanied by his who supplements much of the history. This started about 3 months ago but was much smaller in size. Patient's was treating with OTC creams and keeping area clean. She ordered an ointm ent called Bityota online and began to apply that a couple weeks ago at which point she noted that the wound began to get much larger. Patient presented to the emergency room on 02/[address] was performed which did reveal subcutaneous and deep soft tissue involvement and possible early abscess formation. The patient was also found to have UTI. He was started on antibiotics (Augmentin and Bactrim) for both the wound and UTI which he has since completed. Patient's states that the wound has had a moderate amount of foul-smelling, purulent drainage and she has been changing the dressings twice daily at home. She does not feel that the drainage was reduced with the antibiotic treatment. The wound does cause pain, but he is managing with over the counter pain medications. He denies any fever, chills, nausea, vomiting, increased shortness of breath, chest pain or pressure, syncope or presyncopal episode. He has had a sacral pressure ulcer in the past, last seen here in the wound clinic in March 2018. The patient has very limited mobility as a result of a prior spine surgery. He utilizes a wheelchair at all times and requires a billy lift to transfer to cot here. He sits in his wheelchair almost all day, not really able to change positions. He does not use an air mattress or any other off-loading device in his wheelchair or bed at home. He does continue to smoke but has been cutting back and is down to about 4-5 cigarettes a day. He is not diabetic, not on any blood thinners. [facility] Medical History (Updated 02/16/22 @ 00:01 by Haylie Olivas) Pressure sore Spinal cord injury Home Medications baclofen 10 mg tablet 15 mg PO TID spasm 12/17/17 [History Last Taken Unknown] esomeprazole magnesium 40 mg capsule,delayed release (Nexium) 40 mg PO DAILY 12/17/17 [History Last Taken Unknown] levothyroxine 125 mcg tablet 125 mcg PO DAILY 12/17/17 [History Last Taken Unkn own] tamsulosin 0.4 mg capsule 0.4 mg PO BID 12/17/17 [History Last Taken Unknown] acetaminophen 650 mg tablet 650 mg PO Q8H 02/08/22 [History Last Taken Unknown] icosapent ethyl 1 gram capsule (Vascepa) 2 g PO BID cholesterol 02/08/22 [History Last Taken Unknown] Allergy/AdvReac Type Severity Reaction Status Date / Time Environmental Allergies: Allergy NEEDS Verified 02/08/22 10:59 Uncoded FOLLOW-UP [dust] house dust Allergy Other Verified 02/28/22 09:49 pollen extracts Allergy NEEDS Verified 02/08/22 10:59 FOLLOW-UP Surgical History (Updated 02/08/22 @ 11:[address] Basilio Basurto DO) Hx of spinal surgery Social History Smoking Status: Heavy Smoker (>10/day) ROS Constitutional Constitutional: Denies change in weight, chills, difficulty sleeping, fatigue, fever(s), frequent falls, lethargy, night sweats or weakness Eyes Eyes: Denies blindness, blurry vision, change in vision, eye pain or ptosis ENT HEENT: Denies abnormal hearing, change in voice, hearing loss, loss taste/smell or vertigo Cardiovascular Cardiovascular: Denies abdominal pain, chest pain, claudication, cold extremities, cyanosis, diaphoresis, dyspnea, dyspnea on exertion, fatigue, hypertension, irregular heart rhythm, leg edema, leg ulcers, orthopnea, palpitations, radiating jaw, neck or arm pain or syncope Respiratory/Chest Respiratory/Chest: Denies cough, dyspnea, hemoptysis, nail bed cyanosis, michelle- oral cyanosis, portable oxygen @ home, productive cough or wheezing Gastrointestinal Gastrointestinal: Denies abdominal pain, change in bowel habits, change in stool character, coffee ground emesis, melena, rectal bleeding or weight changes Genitourinary Genitourinary: Denies abdominal discomfort, burning urination, difficulty urinating or flank pain Musculoskeletal Musculoskeletal: Denies abnormal gait, difficulty walking, joint swelling, muscle cramps, muscle weakness or numbness Integumentary Integumentary: Denies change in pigmentation, changing lesions, erythema, lesions, rash, skin ulcer, unusual bruising or wounds Neurologic Neurologic: Denies abnormal gait, abnormal movements, abnormal speech, behavior changes, frequent falls, syncope, tingling or weakness Psychiatric Psychiatric: Denies behavioral changes, cognitive impairment or depression Endocrine Endocrinology: Denies change in body appearance, cold intolerance, excessive sweating, flushing, heat intolerance, palpitations, polydipsia, polyphagia or polyuria Hematologic/Lymphatic Hematologic/Lymphatic: Denies anemia, easy bleeding, easy bruising or lymphadenopathy Allergic/Immunologic Allergic/Immunologic: Denies seasonal rhinorrhea, throat swelling, tongue swelling, hives or asthma Vital Signs Vital Signs Vital Signs: 02/28/22 09:40 02/28/22 09:44 Pulse Rate 86 Respiratory Rate 16 Blood Pressure 94/41 L Blood Pressure Mean 58 Blood Pressure Source Monitor Monitor Blood Pressure Position Supine Supine Blood Pressure Location Right Arm Right Arm Oxygen Delivery Method Room Air Room Air Weight Weight: 220 lb Body Mass Index (BMI) 35.5 Physical Exam Const alert and oriented x3 General Appearance: disheveled HEENT normocephalic, head/scalp atraumatic, hearing grossly normal bilaterally and external ears normal Nose: external nose normal Eyes EOMs intact bilaterally General Eye: normal appearance of both eyes Neck full ROM and no lymphadenopathy Resp normal respiratory effort, no retractions, no use of accessory muscles and clear to auscultation bilaterally Effort and Inspection: able to speak in complete sentences and symmetric chest movement; Negative for stridor, audible wheezes or tracheal deviation Auscultation: diminished lung sounds Cardio regular rate and regular rhythm Peripheral Pulses: brachial pulses present and radial pulses present Skin Wounds: wounds noted Wound Narrative: Pressure ulcer noted on the medial right buttock in the sacral region. surrounding skin discolored but not erythematous. No foul-smelling purulent drainage noted. Wound bed appears overall beefy red granulation tissue with minimal slough. Epibole and undermining noted at the edges. There is tunneling of about 3.5-4cm centrally. Neuro oriented x3 and CN's II-XII intact bilaterally Neuro Narrative: Patient appears to have significant motor abnormalities secondary to a spinal surgery/condition with weakness and limited mobility. Psych mental status grossly normal Appearance: disheveled Attitude: calm Activity / Motor Behavior: appropriate eye contact Speech: normal speech Mood & Affect: euthymic mood Debridement Note Debridement Note Wound debrided: Pressure ulcer of right medial buttock Laterality: Right Type of Debridement: Excisional debridement Anesthesia Used: 5% Lidocaine Gel Depth: Down to and including healthy tissue and in the subcutaneous layer Percentage of wound debrided: 100 Instrument Used: 5mm curette Tissue Removed: slough, devitalized tissue Severity: Fat Layer Exposed Amount of bleeding with debridement: Mild Bleeding Controlled with: Pressure Patient tolerated procedure: Patient tolerated procedure well Post-Debridement Measurements and Additional Note: Post-Debridement Measurements/Treatment - Nurse 1 - General Ulcer Assessment Start: 02/28/22 09:40 Freq: Status: Active Protocol: DILCIANewsBreakDEVORAHT Activity Type Activity Date Activity User E-sign Co-sign Detail Recorded Client Recorded Date Recorded By Document 02/28/22 09:40 [facility] [id number] 02/28/22 09:47 [facility] Document 02/28/22 09:44 [facility] [id number] 02/28/22 09:47 [facility] 02/28/22 02/28/22 09:40 09:44 - Today's Visit Information Type of service Initial Visit Initial Visit Arrival Mode Wheelchair Wheelchair Transfer Assistance Billy Lift Billy Lift Patient Identification Verified (Name & Yes Yes ) Patient Requires Transmission-Based No No Precautions Height and Weight Height 5 ft 6 in Weight 220 lb Weight in Pounds 220.0 lbs Weight Measurement Method Stated by Patient Body Mass Index (BMI) 35.5 BMI Classification Obese BSA - Sveta 2.08 Vital Signs Pulse Rate (60-100) 86 Pulse Location Monitor Monitor Respiratory Rate (12-18) 16 Respiratory rate source Observation Observation Oxygen Delivery Method Room Air Room Air Blood Pressure (90/60-120/80) 94/41 L Blood Pressure Mean 58 Source Monitor Monitor Position Supine Supine Blood Pressure Location Right Arm Right Arm History Since Last Visit- (Skip if this is Patient's initial visit) Left Footwear Regular Shoe Regular Shoe Right Footwear Regular Shoe Regular Shoe Pain Scale: 0-10 Numeric Is Patient Pain Free? Yes Yes Communication Assessment Preferred language Senegalese Senegalese Blacksmith Supervisor Required No No Able to Read Yes Yes Able to Write Yes Yes Communication Tools None None Right Hearing Abillity Hard of Hearing Hard of Hearing Left Hearing Abillity Hard of Hearing Hard of Hearing Visual Assistive Devices Glasses Glasses Teaching Assessment Preferences Verbal,Written, Verbal,Written, Audio/Visual, Audio/Visual, Demonstration Demonstration Barriers to Learning None None Readiness To Learn Good Good Willingness to Engage in Self Management Med Med Activies Readiness to Engage in Self Management Med Med Activities Anxiety Level Calm Calm Cooperation Cooperative Cooperative Perception Coherent Coherent Interest in Health Problem Asks Questions Asks Questions Education Importance Acknowledges Acknowledges Need Need Does Patient Smoke tobacco or other No substances Smoking Status Heavy Smoker (> 10/day) Functional Assessment Recent Decline in Ability to Perform Denies Any Declines Culture/Baptism/[employer] Cultural/Baptism Needs that may affect No Treatment Plan Teaching: Wound Center *Welcome to the Wound Center -Person Taught Patient -Teaching Method Discussion -Response to teaching Verbalize understanding Welcome to the Wound Care Center Sen[place]alese WC - Nurse 1 - General Ulcer Measurement Start: 02/28/22 09:40 Freq: Status: Active Protocol: Activity Type Activity Date Activity User E-sign Co-sign Detail Recorded Client Recorded Date Recorded By Document 02/28/22 09:40 [facility] [id number] 02/28/22 09:47 [facility] Document 02/28/22 09:44 [facility] [id number] 02/28/22 09:47 [facility] 02/28/22 02/28/22 09:40 09:44 Wound Center Nurse 1 #5- R BUTTOCK -Combined with other wound No No -Current Size (cm) - Length 5 5 -Current Size (cm) - Width 6 6 -Current Size (cm) - Depth 1.5 1.5 -Total Square Cm 30 30 -Date of Last Picture (Recall this 02/28/22 02/28/22 field) -Photo Taken Yes Yes -Epithelialization None Present None Present -Tunneling No No -Undermining/Tunneling Yes Yes -Undermining/Tunneling Starts (O'clock 3 3 ) -Undermining/Tunneling Ends (O'clock) 7 7 -Maximum Distance (cm) 1.6 1.6 -Circular Undermining No No -Exudate Amt Large Large -Exudate Type Serosanguineous Serosanguineous -Wound Margin Distinct, Distinct, Outline Outline Attached Attached -Granulation Amt Large (67-100%) Large (67-100%) -Granulation Quality Red Red -Slough/Fibrin No No -Necrosis Amt None Present (0 None Present (0 %) %) -Texture (Michelle-wound Skin Appearance) Assessed, Assessed, Scarring Scarring -Moisture (Michelle-wound Skin Appearance) Assessed Assessed -Color (Michelle-wound Skin Appearance) Assessed Assessed -Temperature (Michelle-wound Skin No Abnormality No Abnormality Appearance) (Pt Warm) (Pt Warm) -Tenderness on Palpation (Michelle-wound No No Skin Appearance) -Ulcer Cleansing Soap and Water Soap and Water -Foul Odor after Cleansing No No -Anesthetic Used 5% Lidocaine 5% Lidocaine Gel Gel WC - Nurse 3 - General Ulcer D/C NN Start: 02/28/22 09:40 Freq: Status: Active Protocol: Activity Type Activity Date Activity User E-sign Co-sign Detail Recorded Client Recorded Date Recorded By Document 02/28/22 10:27 [facility] [id number] 02/28/22 10:28 [facility] 02/28/22 10:27 Wound Care Nurse 3 -Ulcer Cleansing Rinsed/ Irrigated with Saline -Foul Odor after Cleansing No -Primary Dressing Applied Hysept ($), Mepilex Border, Nugauze, Iodoform -Other Dressing DRSG PER [place] [employer] TILE [employer]KER -Mepilex Border 1 -Nugauze, Iodoform 1/4 1 Treatment Response Procedure Tolerated Well Pain Scale: 0-10 Numeric Is Patient Pain Free? Yes WC - Visit Discharge Discharge Condition Stable Ambulatory Status Wheelchair Transportation [facility] Other HH TO BE SET UP Assessment/Plan Assessment/Plan (1) Stage II pressure ulcer of sacral region: CODE(S): L89.152 - Pressure ulcer of sacral region, stage 2 PLAN: Plan Patient was evaluated in the wound center and debridement was performed. Wound bed has beefy red granulation tissue, significant tunnelling and undermining as noted above. Plan to pack with iodoform and cover with dakins soaked gauze. Will apply foam dressing as well to aid in pressure redistribution. Will change twice daily or more frequently as needed to keep dressing clean and dry. We will submit to insurance for a wound vac and plan to initiate next week if approved. Wound cultures obtained as patient's reports foul-smelling discharge at [facility]. Will initiate antibiotics as indicated. Plan to also obtain gel cushion for patient to use in wheelchair to aid in off- loading. Discussed with patient the importance of off-loading (change position every 2 hours and avoid pressure and friction to area if possible) to prevent further injury and promote healing. Also discussed importance of continuing to work towards smoking cessation and increasing protein within his diet to aid in healing. Patient will return to clinic in 1 week for wound care follow-up. He will return sooner or report to the emergency department should symptoms worsen or new symptoms or signs of infection arise.
[2022-03-07 08:44] VITALS: BP 164/81; PULSE 91; RESP 18; TEMP 35.9; BMI 35.5
--- NOTE | 2022-03-07 09:39 | PN.PCM_ITS ---
History of Present Illness Date of Service: 03/07/22 Chief Complaint: Pressure ulcer to right buttock History of Wound: This is a 62-year-old white male who presents to the wound healing center today with complaints of pressure ulcer to right buttock in sacral region. He is accompanied by his who supplements much of the history. This started about 3 months ago but was much smaller in size. Patient's was treating with OTC creams and keeping area clean. She ordered an ointment called [employer] and began to apply that a couple weeks ago at which point she noted that the wound began to get much larger. Patient presented to the emergency room on 02/[address] was performed which did reveal subcutaneous and deep soft tissue involvement and possible early abscess formation. The patient was also found to have UTI. He was started on 10 days of antibiotics (Augmentin and Bactrim) for both the wound and UTI which he has since completed. Patient's states that the wound has had a moderate amount of foul-smelling, purulent drainage and she has been changing the dressings twice daily at home. She does not feel that the drainage was reduced with the antibiotic treatment. The wound does cause pain, but he is managing with over the counter pain medications. He denies any fever, chills, nausea, vomiting, increased shortness of breath, chest pain or pressure, syncope or presyncopal episode. He has had a sacral pressure ulcer in the past, last seen here in the wound cl in in March 2018. The patient has very limited mobility as a result of a prior spine surgery. He utilizes a wheelchair at all times and requires a billy lift to transfer to cot here. He sits in his wheelchair almost all day, not really able to change positions. He does not use an air mattress or any other off-loading device in his wheelchair or bed at home. He does continue to smoke but has been cutting back and is down to about 4-5 cigarettes a day. He is not diabetic, not on any blood thinners. Subjective Subjective Patient reports he is doing well overall. He denies fevers, chills, nausea, vomiting, increased pain. His changes his dressings, but she is not here with him today. He reports the dressing changes have been going well at home, no increase in drainage that he is aware of. He has not yet received the off-loading devices we talked about last week. He has not yet picked up the antibiotics I sent in, but will do so after appointment today. Objective Data Objective Data Vital Signs: Vital Signs Temp Pulse Resp BP O2 Del Method 96.7 F L 91 18 164/81 H Room Air 03/07/22 08:44 03/07/22 08:44 03/07/22 08:44 03/07/22 08:44 02/28/22 09:44 Oxygen Delivery Method Room Air Weight: 220 lb Body Mass Index (BMI) 35.5 Lab / Micro Data Attestation: I reviewed the patient's lab results. Micro: Microbiology 02/28/22 10:15 Wound Abcess - Buttock Gram Stain - Final 02/28/22 10:15 Wound Abcess - Buttock Wound Culture - Final Escherichia coli Staphylococcus aureus 02/28/22 10:15 Wound Abcess - Buttock Anaerobic Culture - Final Clostridium perfringens Charges/Coding Wound Center CF Procedures [id number]: [id number] RMVL DEVITAL TIS 20 CM/< Multi Select Codes Wound Center CF Procedures [id number]: [id number] RMVL DEVITAL TIS 20 CM/< Physical Exam Const alert, oriented x3 and no apparent distress HEENT normocephalic Head and Scalp: atraumatic Nose: external nose normal Eyes EOMs intact bilaterally General Eye: normal appearance of both eyes Neck full ROM and no lymphadenopathy General: trachea midline Resp normal respiratory effort Effort and Inspection: able to speak in complete sentences Cardio regular rate and regular rhythm Peripheral Pulses: brachial pulses present and radial pulses present Extremity Extremity Narrative: Patient has splints and knee high socks, not removed for examination of extremities. Skin Wounds: wounds noted Wound Narrative: Pressure ulcer noted on the medial right buttock near the gluteal fold. Surrounding skin discolored with nonblanching erythema related to pressure i njury. No foul-smelling purulent drainage noted or expressed. Wound bed appears overall beefy red granulation tissue with some slough. Epibole and undermining noted at the edges. There is tunneling of about 4-4.5cm centrally. Some irritation and small skin tear noted in the michelle-wound area where tape was located. Neuro oriented x3 and CN's II-XII intact bilaterally Neuro Narrative: Patient appears to have significant motor abnormalities secondary to a spinal surgery/condition with weakness and limited mobility. Psych mental status grossly normal Appearance: disheveled Attitude: calm Activity / Motor Behavior: appropriate eye contact Speech: normal speech Mood & Affect: euthymic mood Debridement Note Debridement Note Wound debrided: Right buttock pressure ulcer Laterality: Right Type of Debridement: Excisional debridement Anesthesia Used: 5% Lidocaine Gel Depth: Down to and including healthy tissue and in the subcutaneous layer Percentage of wound debrided: 100 Instrument Used: 5mm curette Tissue Removed: slough, devitalized tissue Severity: Fat Layer Exposed Amount of bleeding with debridement: Mild Bleeding Controlled with: Pressure Patient tolerated procedure: Patient tolerated procedure well Post-Debridement Measurements and Additional Note: Post-Debridement Measurements/Treatment - Nurse 1 - General Ulcer Assessment Start: 02/28/22 09:40 Freq: Status: Active Protocol: KIRA Activity Type Activity Date Activity User E-sign Co-sign Detail Recorded Client Recorded Date Recorded By Document 02/28/22 09:40 [facility] [id number] 02/28/22 09:47 [facility] Document 02/28/22 09:44 [facility] [id number] 02/28/22 09:47 [facility] Document 03/07/22 08:44 [id number] 03/07/22 08:56 02/28/22 02/28/22 03/07/22 09:40 09:44 08:44 - Today's Visit Information Type of service Initial Visit Initial Visit Follow-up Visit (Physician/FILM CUTTER ) Arrival Mode Wheelchair Wheelchair Wheelchair Transfer Assistance Billy Lift Billy Lift Billy Lift Patient Identification Verified (Name & Yes Yes ) Patient Requires Transmission-Based No No Yes Precautions Safety Precautions Fall Prevention Height and Weight Height 5 ft 6 in Weight 220 lb Weight in Pounds 220.0 lbs Weight Measurement Method Stated by Patient Body Mass Index (BMI) 35.5 35.5 BMI Classification Obese Obese BSA - Sveta 2.08 Vital Signs Temperature (97.8 F-99.1 F) 96.7 F L Temperature Source Temporal Pulse Rate (60-100) 86 91 Pulse Location Monitor Monitor Monitor Respiratory Rate (12-18) 16 18 Respiratory rate source Observation Observation Observation Oxygen Delivery Method Room Air Room Air Blood Pressure (90/60-120/80) 94/41 L 164/81 H Blood Pressure Mean (mm Hg) 58 108 Source Monitor Monitor Monitor Position Supine Supine Sitting Blood Pressure Location Right Arm Right Arm Right Arm History Since Last Visit- (Skip if this is Patient's initial visit) Have you changed medications since your No last visit? Any new allergies or adverse reactions No Had a fall/change in ADL's that may No increase risk of falls Signs or symptoms of abuse and/or No neglect since last visit Have you been in the hospital since your No last visit? Has dressing in place as prescribed Yes Has compression in place as prescribed N/A Has offloadiing in place as prescribed Yes Left Footwear Regular Shoe Regular Shoe Regular Shoe Right Footwear Regular Shoe Regular Shoe Regular Shoe Pain Scale: 0-10 Numeric Is Patient Pain Free? Yes Yes Yes Communication Assessment Preferred language [place] Spinner Hydraulic Required No No Able to Read Yes Yes Able to Write Yes Yes Communication Tools None None Right Hearing Abillity Hard of Hearing Hard of Hearing Left Hearing Abillity Hard of Hearing Hard of Hearing Visual Assistive Devices Glasses Glasses Teaching Assessment Preferences Verbal,Written, Verbal,Written, Audio/Visual, Audio/Visual, Demonstration Demonstration Barriers to Learning None None Readiness To Learn Good Good Willingness to Engage in Self Management Med Med Activies Readiness to Engage in Self Management Med Med Activities Anxiety Level Calm Calm Cooperation Cooperative Cooperative Perception Coherent Coherent Interest in Health Problem Asks Questions Asks Questions Education Importance Acknowledges Acknowledges Need Need Does Patient Smoke tobacco or other No substances Smoking Status Heavy Smoker (> 10/day) Functional Assessment Recent Decline in Ability to Perform Denies Any Declines Culture/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 Cultural/Jehovah'S Witness Needs that may affect No Treatment Plan Teaching: Wound Center *Welcome to the Wound Center -Person Taught Patient -Teaching Method Discussion -Response to teaching Verbalize understanding Welcome to the Wound Care Center English HA - Nurse 1 - General Ulcer Measurement Start: 02/28/22 09:40 Freq: Status: Active Protocol: Activity Type Activity Date Activity User E-sign Co-sign Detail Recorded Client Recorded Date Recorded By Document 02/28/22 09:40 [facility] [id number] 02/28/22 09:47 [facility] Document 02/28/22 09:44 [facility] [id number] 02/28/22 09:47 [facility] Document 03/07/22 08:44 [id number] 03/07/22 08:56 02/28/22 02/28/22 03/07/22 09:40 09:44 08:44 Wound Center Nurse 1 #5- R BUTTOCK -Combined with other wound No No No -Current Size (cm) - Length 5 5 5.5 -Current Size (cm) - Width 6 6 6.3 -Current Size (cm) - Depth 1.5 1.5 0.2 -Total Square Cm 30 30 34.65 -Date of Last Picture (Recall this 02/28/22 02/28/22 field) -Photo Taken Yes Yes No -Epithelialization None Present None Present None Present -Tunneling No No Yes -Tunneling Position (O'clock) 3 -Tunneling Distance (cm) 5.0 -Undermining/Tunneling Yes Yes -Undermining/Tunneling Starts (O'clock 3 3 3 ) -Undermining/Tunneling Ends (O'clock) 7 7 8 -Maximum Distance (cm) 1.6 1.6 1.5 -Circular Undermining No No -Classification - Pressure Ulcer Stage 4 -Exudate Amt Large Large -Exudate Type Serosanguineous Serosanguineous -Wound Margin Distinct, Distinct, Flat & Intact Outline Outline Attached Attached -Granulation Amt Large (67-100%) Large (67-100%) Large (67-100%) -Granulation Quality Red Red Red -Slough/Fibrin No No Yes -Necrosis Amt None Present (0 None Present (0 Small (1-33%) %) %) -Necrotic Tissue Type Adherent Slough -Structure Exposed Muscle,N/A -Texture (Michelle-wound Skin Appearance) Assessed, Assessed, Assessed Scarring Scarring -Moisture (Michelle-wound Skin Appearance) Assessed Assessed Assessed,Dry/ Scaly -Color (Michelle-wound Skin Appearance) Assessed Assessed Assessed -Temperature (Michelle-wound Skin No Abnormality No Abnormality No Abnormality Appearance) (Pt Warm) (Pt Warm) (Pt Warm) -Tenderness on Palpation (Michelle-wound No No No Skin Appearance) -Ulcer Cleansing Soap and Water Soap and Water Wound Cleanser -Foul Odor after Cleansing No No No -Anesthetic Used 5% Lidocaine 5% Lidocaine 5% Lidocaine Gel Gel Gel Lower Limb Edema Present NA WC - Nurse 2 - General Ulcer CM Notes Start: 02/28/22 09:40 Freq: Status: Active Protocol: Activity Type Activity Date Activity User E-sign Co-sign Detail Recorded Client Recorded Date Recorded By Document 02/28/22 11:00 PL [id number] 02/28/22 11:02 PL 02/28/22 11:00 Wound Center Nurse 2 #5- R BUTTOCK -Time 10:00 -Correct Patient Yes -Correct Side, Site, Position Yes -Correct Procedure Yes -Procedure Performed Yes -Type of Procedure Debridement -Clinical Debridement Subcutaneous -Tissue Removed Subcutaneous -Post Debridement (cm) - Length 4.3 -Post Debridement (cm) - Width 6.8 -Post Debridement (cm) - Depth 4.0 -Total Square (Post) (cm) 29.24 -Area of Debridement (cm) - Length 4.3 -Area of Debridement (cm) - Width 6.8 -Total Square (Area) (cm) 29.24 -Undermining/Tunneling Yes -Undermining/Tunneling Starts (O'clock 2 ) -Undermining/Tunneling Ends (O'clock) 4 -Maximum Distance (cm) 1.2 -Undermining/Tunneling Starts #2 (O' 1 clock) -Undermining/Tunneling Ends #2 (O' 1 clock) -Maximum Distance #2 (cm) 4.5 -Wound/Ulcer Outcome Not Healed -Ulcer Cleansing Rinsed/ Irrigated with Saline -Foul Odor after Cleansing No -Bioengineered Tissue No -Bleeding Controlled with Pressure -Treatment Response Procedure Tolerated Well -Debridement - Subq, 1st 20sq cm Yes -Debridement, SubQ, ea addt'l 20sq cm 1 or part thereof Pain Scale: 0-10 Numeric Is Patient Pain Free? Yes WC - Nurse 3 - General Ulcer D/C NN Start: 02/28/22 09:40 Freq: Status: Active Protocol: Activity Type Activity Date Activity User E-sign Co-sign Detail Recorded Client Recorded Date Recorded By Document 02/28/22 10:27 [facility] [id number] 02/28/22 10:28 [facility] Document 03/07/22 09:24 RB [id number] 03/07/22 09:26 RB 02/28/22 03/07/22 10:27 09:24 Wound Care Nurse 3 #5- R BUTTOCK -Ulcer Cleansing Rinsed/ Irrigated with Saline -Foul Odor after Cleansing No -Primary Dressing Applied Hysept ($), Mepilex Border Mepilex Border, Nugauze, Iodoform -Other Dressing DRSG PER [place] [employer] LEADER dakins moistened gauze -Primary Dressing Covered/Secured with Dry Gauze, Secured with Tape -Mepilex Border 1 1 -Nugauze, Iodoform / 1 Treatment Response Procedure Procedure Tolerated Well Tolerated Well Pain Scale: 0-10 Numeric Is Patient Pain Free? Yes Yes WC - Visit Discharge Discharge Condition Stable Stable Ambulatory Status Wheelchair Wheelchair Transportation [employer] Private Auto Medication Reconcilliation completed & No provided to patient/care provider Clinical Summary of Care Provided Yes Other HH TO BE SET UP Assessment/Plan Assessment/Plan (1) Stage II pressure ulcer of sacral region: CODE(S): L89.152 - Pressure ulcer of sacral region, stage 2 PLAN: Plan Patient was evaluated in the wound center and debridement was performed. Wound bed has beefy red granulation tissue with some slough, significant tunnelling and undermining as noted above. Did also note a small skin tear and irritation where tape was located. Plan to pack with dakins-soaked gauze and cover with dakins-soaked gauze. Will apply foam dressing as well to aid in pressure redistribution. Will switch to a silicone boarder dressing to prevent further periwound skin irritation/tearing. Will change twice daily or more frequently as needed to keep dressing clean and dry. Did submit to insurance for wound vac, has not yet been approved. Wound cultures obtained last week grew staph, E. coli, and C. perfringens. Prescribed Linezolid and Augmentin x 14 days based upon C&S. Did instruct patient to take with meals, keep well hydrated as these can cause GI upset. He will let us know if unable to tolerate antibiotics. Reviewed CT from ER and note a second area of fluid/pocket of possible infection toward right hip which is not open to the skin. Concerned that this area may not be adequately addressed with our local care and would like General Surgery to evaluate to see if they feel intervention is needed. Referral will be sent. Patient has not yet received off-loading devices, caseworker intake will follow-up on that. Discussed with patient the importance of off-loading (change position every 2 hours at minimum and avoid pressure and friction to area if possible) to prevent further injury and promote healing. Also discussed importance of contin uing to work towards smoking cessation and increasing protein within his diet to aid in healing. Patient will return to clinic in 1 week for wound care follow-up. He will return sooner or report to the emergency department should symptoms worsen or new symptoms or signs of infection arise.
[2022-03-14 08:28] VITALS: BP 125/73; PULSE 94; RESP 16; TEMP 36.3; BMI 35.5
--- NOTE | 2022-03-14 09:26 | PCM.WC.PN ---
History of Present Illness Date of Service: 03/14/22 Chief Complaint: Pressure ulcer to right buttock History of Wound: This is a 62-year-old white male who presents to the wound healing center today with complaints of pressure ulcer to right buttock. He is accompanied by his who supplements much of the history. This started about 3 months ago but was much smaller in size. Patient's was treating with OTC creams and keeping area clean. A couple weeks ago she noted that the wound began to get much larger. Patient presented to the emergency room on 02/[address] was performed which did reveal subcutaneous and deep soft tissue involvement and possible early abscess formation. The patient was also found to have UTI. He was started on 10 days of antibiotics (Augmentin and Bactrim) for both the wound and UTI which he has since completed. He has had a sacral pressure ulcer in the past, last seen here in the wound clinic in March 2018. The patient has very limited mobility as a result of a prior spine injury/surgery. He utilizes a wheelchair at all times and requires a billy lift to transfer to cot here. He sits in his wheelchair almost all day, not really able to change positions. He does not use an air mattress or any other off-loading device in his wheelchair or bed at home. He does continue to smoke but has been cutting back and is down to about 4-5 cigarettes a day. He is not diabetic, not on any blood thinners. Subjective Subjective Patient reports he is doing well overall. He denies fevers, chills, nausea, vomiting, increased pain. He did have some trouble with the antibiotics causing diarrhea, we discussed this over the phone earlier this week. He did start the probiotics as advised and the diarrhea stopped. He has not had diarrhea for the last 3-4 days. His changes his dressings twice daily, but she is not here with him today. He reports the dressing changes have been going well at home, no increased or foul-smelling drainage. He has not yet received the off-loading devices as there were some communication challenges with the supplying company, phone numbers have been updated and hopefully this will get delivered in the next week. Objective Data Objective Data Vital Signs: Vital Signs Temp Pulse Resp BP O2 Del Method 97.3 F L 94 16 125/73 H Room Air 03/14/22 08:28 03/14/22 08:28 03/14/22 08:28 03/14/22 08:28 03/14/22 08:28 Oxygen Delivery Method Room Air Weight: 220 lb Body Mass Index (BMI) 35.5 Lab / Micro Data Micro: Microbiology 02/28/22 10:15 Wound Abcess - Buttock Gram Stain - Final 02/28/22 10:15 Wound Abcess - Buttock Wound Culture - Final Escherichia coli Staphylococcus aureus 02/28/22 10:15 Wound Abcess - Buttock Anaerobic Culture - Final Clostridium perfringens Charges/Coding Wound Center CF Procedures [id number]: [id number] RMVL DEVITAL TIS 20 CM/< Multi Select Codes Wound Center CF Procedures [id number]: [id number] RMVL DEVITAL TIS 20 CM/< Physical Exam Const alert, oriented x3 and no apparent distress HEENT normocephalic Head and Scalp: atraumatic Nose: external nose normal Eyes EOMs intact bilaterally General Eye: normal appearance of both eyes Neck full ROM and no lymphadenopathy General: trachea midline Resp normal respiratory effort Effort and Inspection: able to speak in complete sentences Cardio regular rate and regular rhythm Peripheral Pulses: brachial pulses present and radial pulses present Extremity Extremity Narrative: Patient has splints and knee high socks, not removed for examination of extremities. Skin Wounds: wounds noted Wound Narrative: Pressure ulcer noted on the medial right buttock near the gluteal fold. Surrounding skin with nonblanching erythema and purple discoloration related to pressure injury. No foul-smelling purulent drainage noted or expressed. Wound bed appears overall beefy red granulation tissue with some slough. Epibole and undermining noted at the edges. There is tunneling of about 4 cm centrally, does not feel like it goes to bone. Some irritation and 3 small skin tears noted in the michelle-wound area. Neuro oriented x3 and CN's II-XII intact bilaterally Neuro Narrative: Patient has significantly limited mobility secondary to spinal injury, utilizes wheelchair. Psych mental status grossly normal Appearance: disheveled Attitude: calm Activity / Motor Behavior: appropriate eye contact Speech: normal speech Mood & Affect: euthymic mood Debridement Note Debridement Note Wound debrided: Right buttock pressure ulcer Laterality: Right Type of Debridement: Excisional debridement Anesthesia Used: 5% Lidocaine Gel Depth: Down to and including healthy tissue and in the subcutaneous layer Percentage of wound debrided: 100 Instrument Used: 3mm curette Tissue Removed: slough, devitalized tissue Severity: Fat Layer Exposed Amount of bleeding with debridement: Mild Bleeding Controlled with: Pressure Patient tolerated procedure: Patient tolerated procedure well Post-Debridement Measurements and Additional Note: Post-Debridement Measurements/Treatment - Nurse 1 - General Ulcer Assessment Start: 02/28/22 09:40 Freq: Status: Active Protocol: .LOWEXT Activity Type Activity Date Activity User E-sign Co-sign Detail Recorded Client Recorded Date Recorded By Document 02/28/22 09:40 [facility] [id number] 02/28/22 09:47 [facility] Document 02/28/22 09:44 [facility] [id number] 02/28/22 09:47 [facility] Document 03/07/22 08:44 [id number] 03/07/22 08:56 Document 03/14/22 08:28 [facility] [id number] 03/14/22 08:30 [facility] 02/28/22 02/28/22 03/07/22 09:40 09:44 08:44 - Today's Visit Information Type of service Initial Visit Initial Visit Follow-up Visit (Physician/MANUAL LATHE OPERATOR ) Arrival Mode Wheelchair Wheelchair Wheelchair Transfer Assistance Billy Lift Billy Lift Billy Lift Patient Identification Verified (Name & Yes Yes ) Patient Requires Transmission-Based No No Yes Precautions Safety Precautions Fall Prevention Height and Weight Height 5 ft 6 in Weight 220 lb Weight in Pounds 220.0 lbs Weight Measurement Method Stated by Patient Body Mass Index (BMI) 35.5 35.5 BMI Classification Obese Obese BSA - Sveta 2.08 Vital Signs Temperature (97.8 F-99.1 F) 96.7 F L Temperature Source Temporal Pulse Rate (60-100) 86 91 Pulse Location Monitor Monitor Monitor Respiratory Rate (12-18) 16 18 Respiratory rate source Observation Observation Observation Oxygen Delivery Method Room Air Room Air Blood Pressure (90/60-120/80) 94/41 L 164/81 H Blood Pressure Mean (mm Hg) 58 108 Source Monitor Monitor Monitor Position Supine Supine Sitting Blood Pressure Location Right Arm Right Arm Right Arm History Since Last Visit- (Skip if this is Patient's initial visit) Have you changed medications since your No last visit? Any new allergies or adverse reactions No Had a fall/change in ADL's that may No increase risk of falls Signs or symptoms of abuse and/or No neglect since last visit Have you been in the hospital since your No last visit? Has dressing in place as prescribed Yes Has compression in place as prescribed N/A Has offloadiing in place as prescribed Yes Left Footwear Regular Shoe Regular Shoe Regular Shoe Right Footwear Regular Shoe Regular Shoe Regular Shoe Pain Scale: 0-10 Numeric Is Patient Pain Free? Yes Yes Yes Communication Assessment Preferred language Polish Polish Hygiene Teacher Required No No Able to Read Yes Yes Able to Write Yes Yes Communication Tools None None Right Hearing Abillity Hard of Hearing Hard of Hearing Left Hearing Abillity Hard of Hearing Hard of Hearing Visual Assistive Devices Glasses Glasses Teaching Assessment Preferences Verbal,Written, Verbal,Written, Audio/Visual, Audio/Visual, Demonstration Demonstration Barriers to Learning None None Readiness To Learn Good Good Willingness to Engage in Self Management Med Med Activies Readiness to Engage in Self Management Med Med Activities Anxiety Level Calm Calm Cooperation Cooperative Cooperative Perception Coherent Coherent Interest in Health Problem Asks Questions Asks Questions Education Importance Acknowledges Acknowledges Need Need Does Patient Smoke tobacco or other No substances Smoking Status Heavy Smoker (> 10/day) Functional Assessment Recent Decline in Ability to Perform Denies Any Declines Culture/Moravian/Rope Cutter Cultural/Moravian Needs that may affect No Treatment Plan Teaching: Wound Center *Welcome to the Wound Center -Person Taught Patient -Teaching Method Discussion -Response to teaching Verbalize understanding Welcome to the Wound Care Center Polish 03/14/22 08:28 WC - Today's Visit Information Type of service Follow-up Visit (Physician/MANUAL LATHE OPERATOR ) Arrival Mode Wheelchair Transfer Assistance Billy Lift Patient Identification Verified (Name & Yes ) Patient Requires Transmission-Based No Precautions Safety Precautions Height and Weight Height Weight Weight in Pounds Weight Measurement Method Body Mass Index (BMI) 35.5 BMI Classification Obese BSA - Sveta Vital Signs Temperature (97.8 F-99.1 F) 97.3 F L Temperature Source Temporal Pulse Rate (60-100) 94 Pulse Location Monitor Respiratory Rate (12-18) 16 Respiratory rate source Observation Oxygen Delivery Method Room Air Blood Pressure (90/60-120/80) 125/73 H Blood Pressure Mean (mm Hg) 90 Source Monitor Position Sitting Blood Pressure Location Left Arm History Since Last Visit- (Skip if this is Patient's initial visit) Have you changed medications since your No last visit? Any new allergies or adverse reactions No Had a fall/change in ADL's that may No increase risk of falls Signs or symptoms of abuse and/or No neglect since last visit Have you been in the hospital since your No last visit? Has dressing in place as prescribed Yes Has compression in place as prescribed N/A Has offloadiing in place as prescribed N/A Left Footwear Regular Shoe Right Footwear Regular Shoe Pain Scale: 0-10 Numeric Is Patient Pain Free? Yes Communication Assessment Preferred assistant speech language pathologist Required Able to Read Able to Write Communication Tools Right Hearing Abillity Left Hearing Abillity Visual Assistive Devices Teaching Assessment Preferences Barriers to Learning Readiness To Learn Willingness to Engage in Self Management Activies Readiness to Engage in Self Management Activities Anxiety Level Cooperation Perception Interest in Health Problem Education Importance Does Patient Smoke tobacco or other substances Smoking Status Functional Assessment Recent Decline in Ability to Perform Culture/Moravian/Rope Cutter Cultural/Moravian Needs that may affect Treatment Plan Teaching: Wound Center *Welcome to the Wound Center -Person Taught -Teaching Method -Response to teaching Welcome to the Wound Care Center WC - Nurse 1 - General Ulcer Measurement Start: 02/28/22 09:40 Freq: Status: Active Protocol: Activity Type Activity Date Activity User E-sign Co-sign Detail Recorded Client Recorded Date Recorded By Document 02/28/22 09:40 [facility] [id number] 02/28/22 09:47 [facility] Document 02/28/22 09:44 [facility] [id number] 02/28/22 09:47 [facility] Document 03/07/22 08:44 [id number] 03/07/22 08:56 Document 03/14/22 08:28 [facility] [id number] 03/14/22 08:30 [facility] 02/28/22 02/28/22 03/07/22 09:40 09:44 08:44 Wound Center Nurse 1 #5- R BUTTOCK -Combined with other wound No No No -Current Size (cm) - Length 5 5 5.5 -Current Size (cm) - Width 6 6 6.3 -Current Size (cm) - Depth 1.5 1.5 0.2 -Total Square Cm 30 30 34.65 -Date of Last Picture (Recall this 02/28/22 02/28/22 field) -Photo Taken Yes Yes No -Epithelialization None Present None Present None Present -Tunneling No No Yes -Tunneling Position (O'clock) 3 -Tunneling Distance (cm) 5.0 -Undermining/Tunneling Yes Yes -Undermining/Tunneling Starts (O'clock 3 3 3 ) -Undermining/Tunneling Ends (O'clock) 7 7 8 -Maximum Distance (cm) 1.6 1.6 1.5 -Circular Undermining No No -Classification - Pressure Ulcer Stage 4 -Exudate Amt Large Large -Exudate Type Serosanguineous Serosanguineous -Wound Margin Distinct, Distinct, Flat & Intact Outline Outline Attached Attached -Granulation Amt Large (67-100%) Large (67-100%) Large (67-100%) -Granulation Quality Red Red Red -Slough/Fibrin No No Yes -Necrosis Amt None Present (0 None Present (0 Small (1-33%) %) %) -Necrotic Tissue Type Adherent Slough -Structure Exposed Muscle,N/A -Texture (Michelle-wound Skin Appearance) Assessed, Assessed, Assessed Scarring Scarring -Moisture (Michelle-wound Skin Appearance) Assessed Assessed Assessed,Dry/ Scaly -Color (Michelle-wound Skin Appearance) Assessed Assessed Assessed -Temperature (Michelle-wound Skin No Abnormality No Abnormality No Abnormality Appearance) (Pt Warm) (Pt Warm) (Pt Warm) -Tenderness on Palpation (Michelle-wound No No No Skin Appearance) -Ulcer Cleansing Soap and Water Soap and Water Wound Cleanser -Foul Odor after Cleansing No No No -Anesthetic Used 5% Lidocaine 5% Lidocaine 5% Lidocaine Gel Gel Gel Lower Limb Edema Present NA 03/14/22 08:28 Wound Center Nurse 1 #5- R BUTTOCK -Combined with other wound No -Current Size (cm) - Length 6.7 -Current Size (cm) - Width 5.6 -Current Size (cm) - Depth 4.1 -Total Square Cm 37.52 -Date of Last Picture (Recall this 03/14/22 field) -Photo Taken Yes -Epithelialization None Present -Tunneling No -Tunneling Position (O'clock) -Tunneling Distance (cm) -Undermining/Tunneling No -Undermining/Tunneling Starts (O'clock ) -Undermining/Tunneling Ends (O'clock) -Maximum Distance (cm) -Circular Undermining No -Classification - Pressure Ulcer -Exudate Amt Large -Exudate Type Serosanguineous -Wound Margin Distinct, Outline Attached -Granulation Amt Large (67-100%) -Granulation Quality Red -Slough/Fibrin Yes -Necrosis Amt Small (1-33%) -Necrotic Tissue Type Adherent Slough -Structure Exposed -Texture (Michelle-wound Skin Appearance) Assessed, Scarring -Moisture (Michelle-wound Skin Appearance) Assessed -Color (Michelle-wound Skin Appearance) Assessed -Temperature (Michelle-wound Skin No Abnormality Appearance) (Pt Warm) -Tenderness on Palpation (Michelle-wound No Skin Appearance) -Ulcer Cleansing Soap and Water -Foul Odor after Cleansing No -Anesthetic Used 4% Lidocaine Solution Lower Limb Edema Present WC - Nurse 2 - General Ulcer CM Notes Start: 02/28/22 09:40 Freq: Status: Active Protocol: Activity Type Activity Date Activity User E-sign Co-sign Detail Recorded Client Recorded Date Recorded By Document 02/28/22 11:00 PL [id number] 02/28/22 11:02 PL Document 03/07/22 12:35 PL [id number] 03/07/22 12:37 PL 02/28/22 03/07/22 11:00 12:35 Wound Center Nurse 2 #5- R BUTTOCK -Time 10:00 09:04 -Correct Patient Yes Yes -Correct Side, Site, Position Yes Yes -Correct Procedure Yes Yes -Procedure Performed Yes Yes -Type of Procedure Debridement Debridement -Clinical Debridement Subcutaneous Subcutaneous -Tissue Removed Subcutaneous Subcutaneous -Post Debridement (cm) - Length 4.3 5.5 -Post Debridement (cm) - Width 6.8 6.2 -Post Debridement (cm) - Depth 4.0 4.5 -Total Square (Post) (cm) 29.24 34.10 -Area of Debridement (cm) - Length 4.3 5.5 -Area of Debridement (cm) - Width 6.8 6.2 -Total Square (Area) (cm) 29.24 34.10 -Tunneling Yes -Tunneling Position (O'clock) 1 -Tunneling Distance (cm) 4.5 -Undermining/Tunneling Yes Yes -Undermining/Tunneling Starts (O'clock 2 12 ) -Undermining/Tunneling Ends (O'clock) 4 3 -Maximum Distance (cm) 1.2 4.0 -Undermining/Tunneling Starts #2 (O' 1 2 clock) -Undermining/Tunneling Ends #2 (O' 1 4 clock) -Maximum Distance #2 (cm) 4.5 1.3 -Wound/Ulcer Outcome Not Healed Not Healed -Ulcer Cleansing Rinsed/ Rinsed/ Irrigated with Irrigated with Saline Saline -Foul Odor after Cleansing No No -Bioengineered Tissue No No -Bleeding Controlled with Pressure Pressure -Treatment Response Procedure Procedure Tolerated Well Tolerated Well -Debridement - Subq, 1st 20sq cm Yes Yes -Debridement, SubQ, ea addt'l 20sq cm 1 1 or part thereof Pain Scale: 0-10 Numeric Is Patient Pain Free? Yes Yes - Nurse 3 - General Ulcer D/C NN Start: 02/28/22 09:40 Freq: Status: Active Protocol: Activity Type Activity Date Activity User E-sign Co-sign Detail Recorded Client Recorded Date Recorded By Document 02/28/22 10:27 [facility] [id number] 02/28/22 10:28 [facility] Document 03/07/22 09:24 [id number] 03/07/22 09:26 RB Document 03/14/22 09:19 [facility] [id number] 03/14/22 09:20 [facility] 02/28/22 03/07/22 03/14/22 10:27 09:24 09:19 Wound Care Nurse 3 #5- R BUTTOCK -Ulcer Cleansing Rinsed/ Rinsed/ Irrigated with Irrigated with Saline Saline -Foul Odor after Cleansing No No -Negative Pressure Wound Therapy Start -Setting (mmHg) 150 -Negative Pressure is Continuous -Primary Dressing Applied Hysept ($), Mepilex Border Mepilex Border, Nugauze, Iodoform -Other Dressing DRSG PER [place] CHEMICAL MANAGER dakins moistened gauze -Primary Dressing Covered/Secured with Dry Gauze, Secured with Tape -NPWT Application Charge NPWT & Debridement (nc ) -Mepilex Border 1 1 -Nugauze, Iodoform /4 1 Treatment Response Procedure Procedure Procedure Tolerated Well Tolerated Well Tolerated Well Pain Scale: 0-10 Numeric Is Patient Pain Free? Yes Yes Yes WC - Visit Discharge Discharge Condition Stable Stable Stable Ambulatory Status Wheelchair Wheelchair Wheelchair Transportation [employer] Private Auto Medication Reconcilliation completed & No provided to patient/care provider Clinical Summary of Care Provided Yes Facility Type Home Health Other HH TO BE SET UP Assessment/Plan Assessment/Plan (1) Stage II pressure ulcer of sacral region: CODE(S): L89.152 - Pressure ulcer of sacral region, stage 2 PLAN: Plan Patient was evaluated in the wound center and debridement was performed. Wound bed has beefy red granulation tissue with some slough, significant tunnelling and undermining as noted above but improved from prior weeks. Did also note 3 small skin tears in periwound area. Wound vac was approved and delivered. Plan to apply that today with white foam to the tunnels and black foam to cover. Home Health will be coordinated to change dressing on Thursday and Thursday and then we will change here on Fridays. Instructed patient regarding the importance of the seal and to remove dressing if seal is lost and unable to be re-established. If this occurs, he will call the wound center for further instruction. Can return to previous dakins-soaked gauze packing if this becomes an issue. Wound cultures obtained grew staph, E. coli, and C. perfringens. Prescribed Linezolid and Augmentin x 14 days based upon C&S. He experienced diarrhea with this regimen. Patient's diarrhea was resolved with cessation of antibiotics and starting probiotics. Will plan to address the infections in stages from now on. Patient will try to take the Augmentin again tomorrow after several days of probiotics and see if he tolerates better. If he does not tolerate, will switch to cipro and flagyl which would also cover the E. coli and Clostridium. After completion of that therapy would attempt to again start the linezolid to address staph. Patient reports General Surgery advised him they feel he should be seen by Plastic Surgery regarding his wound instead. Will provide Plastic Surgery referral for evaluation of possible abscess not connected to the skin tracking toward right hip as seen on CT from ED. Discussed with patient the importance of off-loading (change position every 2 hours at minimum and avoid pressure and friction to area if possible) to prevent further injury and promote healing. Patient has not yet received off-loading devices, appears there were communication issues between supply company and patient which have been resolved, hope these will arrive this week. Also discussed importance of continuing to work towards smoking cessation and increasing protein within his diet to aid in healing. Patient will return to clinic in 1 week for wound care follow-up. He will return sooner or report to the emergency department should symptoms worsen or new symptoms or signs of infection arise.
[2022-03-28 08:11] VITALS: BP 88/50; PULSE 85; RESP 18; TEMP 36.2; BMI 35.5
--- NOTE | 2022-03-28 09:51 | PCM.WC.PN ---
History of Present Illness Date of Service: 03/28/22 Chief Complaint: Pressure ulcer to right buttock History of Wound: This is a 62-year-old white male who presents to the wound healing center today with complaints of pressure ulcer to right buttock. He is accompanied by his who supplements much of the history. This started about 3 months ago but was much smaller in size. Patient's was treating with OTC creams and keeping area clean. A couple weeks ago she noted that the wound began to get much larger. Patient presented to the emergency room on 02/[address] was performed which did reveal subcutaneous and deep soft tissue involvement and possible early abscess formation. The patient was also found to have UTI. He was started on 10 days of antibiotics (Augmentin and Bactrim) for both the wound and UTI which he has since completed. He has had a sacral pressure ulcer in the past, last seen here in the wound clinic in March 2018. The patient has very limited mobility as a result of a prior spine injury/surgery. He utilizes a wheelchair at all times and requires a billy lift to transfer to cot here. He sits in his wheelchair almost all day, not really able to change positions. He does not use an air mattress or any other off-loading device in his wheelchair or bed at home. He does continue to smoke but has been cutting back and is down to about 4-5 cigarettes a day. He is not diabetic, not on any blood thinners. Subjective Subjective Patient did not come into [facility] last week due to weather, so it has been 2 weeks since he was seen. accompanies him today and supplements history. At last visit he was started on wound vac. Patient and report that they have had a lot of difficulty maintaining the seal on the wound vac such that they often have to take it off for a whole day at a time in between home health nurse visits. This is complicated by the patient continuing to have diarrhea. He has not tolerated the Augmentin even after trial of probiotics so he stopped the antibiotic. He reports diarrhea 2-4 times a day about every other day or so even since stopping the antibiotic. As a result he has had trouble keeping the wound clean as he is unable to adequately change dressing himself and has to wait for his to get home from work. Otherwise, patient has no complaints. No nausea, vomiting, fevers, chills, increased pain, foul-smelling drainage. He has still not received any off-loading devices for wheelchair or bed. He has not scheduled an appointment to see the plastic surgeon has we discussed last week. He continues to have communication problems, seems there is trouble with receiving and returning calls. Objective Data Objective Data Vital Signs: Vital Signs Temp Pulse Resp BP O2 Del Method 97.1 F L 85 18 88/50 L Room Air 03/28/22 08:11 03/28/22 08:11 03/28/22 08:11 03/28/22 08:11 03/14/22 08:28 Oxygen Delivery Method Room Air Weight: 220 lb Body Mass Index (BMI) 35.5 Lab / Micro Data Micro: Microbiology 02/28/22 10:15 Wound Abcess - Buttock Gram Stain - Final 02/28/22 10:15 Wound Abcess - Buttock Wound Culture - Final Escherichia coli Staphylococcus aureus 02/28/22 10:15 Wound Abcess - Buttock Anaerobic Culture - Final Clostridium perfringens Charges/Coding Wound Center CF Procedures [id number]: [id number] RMVL DEVITAL TIS 20 CM/< Multi Select Codes Wound Center CF Procedures [id number]: [id number] RMVL DEVITAL TIS 20 CM/< Physical Exam Const alert, oriented x3 and no apparent distress HEENT normocephalic Head and Scalp: atraumatic Nose: external nose normal Eyes EOMs intact bilaterally General Eye: normal appearance of both eyes Neck full ROM and no lymphadenopathy General: trachea midline Resp normal respiratory effort Effort and Inspection: able to speak in complete sentences Cardio regular rate and regular rhythm Peripheral Pulses: brachial pulses present and radial pulses present Extremity Extremity Narrative: Patient has splints and knee high socks, not removed for examination of extremities. Skin Wounds: wounds noted Wound Narrative: Pressure ulcer noted on the medial right buttock near the gluteal fold/anus. Surrounding skin with nonblanching erythema and purple discoloration related to pressure injury. No foul-smelling purulent drainage noted or expressed. Wound bed appears overall beefy red granulation tissue with some slough. Epibole and undermining noted at the edges. There is tunneling of about 4 cm centrally, does not feel like it goes to bone. Some irritation and 3 small skin tears noted in the michelle-wound area. Looks about the same as last week. Neuro oriented x3 and CN's II-XII intact bilaterally Neuro Narrative: Patient has significantly limited mobility secondary to spinal injury, utilizes wheelchair. Patient does have muscle spasms/twitches as a result of injury. Psych mental status grossly normal Appearance: disheveled Attitude: calm Activity / Motor Behavior: appropriate eye contact Speech: normal speech Mood & Affect: euthymic mood Debridement Note Debridement Note Wound debrided: Right buttock pressure ulcer Laterality: Right Type of Debridement: Excisional debridement Anesthesia Used: 5% Lidocaine Gel Depth: Down to and including healthy tissue and in the subcutaneous layer Percentage of wound debrided: 100 Instrument Used: 3mm curette Tissue Removed: slough, devitalized tissue Severity: Fat Layer Exposed Amount of bleeding with debridement: Mild Bleeding Controlled with: Pressure Patient tolerated procedure: Patient tolerated procedure well Post-Debridement Measurements and Additional Note: Post-Debridement Measurements/Treatment - Nurse 1 - General Ulcer Assessment Start: 02/28/22 09:40 Freq: Status: Active Protocol: KIRA Activity Type Activity Date Activity User E-sign Co-sign Detail Recorded Client Recorded Date Recorded By Document 02/28/22 09:40 [facility] [id number] 02/28/22 09:47 [facility] Document 02/28/22 09:44 [facility] [id number] 02/28/22 09:47 [facility] Document 03/07/22 08:44 [id number] 03/07/22 08:56 Document 03/14/22 08:28 [facility] [id number] 03/14/22 08:30 [facility] Document 03/28/22 08:11 [id number] 03/28/22 08:35 PL 02/28/22 02/28/22 03/07/22 09:40 09:44 08:44 - Today's Visit Information Type of service Initial Visit Initial Visit Follow-up Visit (Physician/CHIEF DIGITAL MEDIA OFFICER ) Arrival Mode Wheelchair Wheelchair Wheelchair Transfer Assistance Billy Lift Billy Lift Billy Lift Patient Identification Verified (Name & Yes Yes ) Patient Requires Transmission-Based No No Yes Precautions Safety Precautions Fall Prevention Height and Weight Height 5 ft 6 in Weight 220 lb Weight in Pounds 220.0 lbs Weight Measurement Method Stated by Patient Body Mass Index (BMI) 35.5 35.5 BMI Classification Obese Obese BSA - Sveta 2.08 Vital Signs Temperature (97.8 F-99.1 F) 96.7 F L Temperature Source Temporal Pulse Rate (60-100) 86 91 Pulse Location Monitor Monitor Monitor Respiratory Rate (12-18) 16 18 Respiratory rate source Observation Observation Observation Oxygen Delivery Method Room Air Room Air Blood Pressure (90/60-120/80) 94/41 L 164/81 H Blood Pressure Mean (mm Hg) 58 108 Source Monitor Monitor Monitor Position Supine Supine Sitting Blood Pressure Location Right Arm Right Arm Right Arm History Since Last Visit- (Skip if this is Patient's initial visit) Have you changed medications since your No last visit? Any new allergies or adverse reactions No Had a fall/change in ADL's that may No increase risk of falls Signs or symptoms of abuse and/or No neglect since last visit Have you been in the hospital since your No last visit? Has dressing in place as prescribed Yes Has compression in place as prescribed N/A Has offloadiing in place as prescribed Yes Experienced any changes in pain level or management Left Footwear Regular Shoe Regular Shoe Regular Shoe Right Footwear Regular Shoe Regular Shoe Regular Shoe Pain Scale: 0-10 Numeric Is Patient Pain Free? Yes Yes Yes Communication Assessment Preferred language Telugu Telugu Hvac Commercial Salesperson Required No No Able to Read Yes Yes Able to Write Yes Yes Communication Tools None None Right Hearing Abillity Hard of Hearing Hard of Hearing Left Hearing Abillity Hard of Hearing Hard of Hearing Visual Assistive Devices Glasses Glasses Teaching Assessment Preferences Verbal,Written, Verbal,Written, Audio/Visual, Audio/Visual, Demonstration Demonstration Barriers to Learning None None Readiness To Learn Good Good Willingness to Engage in Self Management Med Med Activies Readiness to Engage in Self Management Med Med Activities Anxiety Level Calm Calm Cooperation Cooperative Cooperative Perception Coherent Coherent Interest in Health Problem Asks Questions Asks Questions Education Importance Acknowledges Acknowledges Need Need Does Patient Smoke tobacco or other No substances Smoking Status Heavy Smoker (> 10/day) Functional Assessment Recent Decline in Ability to Perform Denies Any Declines Culture/Cheondoism/Linoleum Tile Layer Cultural/Cheondoism Needs that may affect No Treatment Plan Teaching: Wound Center *Welcome to the Wound Center -Person Taught Patient -Teaching Method Discussion -Response to teaching Verbalize understanding Welcome to the Wound Care Center Telugu 03/14/22 03/28/22 08:28 08:11 WC - Today's Visit Information Type of service Follow-up Visit Follow-up Visit (Physician/CHIEF DIGITAL MEDIA OFFICER (Physician/CHIEF DIGITAL MEDIA OFFICER ) ) Arrival Mode Wheelchair Wheelchair Transfer Assistance Billy Lift Billy Lift Patient Identification Verified (Name & Yes Yes ) Patient Requires Transmission-Based No No Precautions Safety Precautions Height and Weight Height Weight Weight in Pounds Weight Measurement Method Body Mass Index (BMI) 35.5 35.5 BMI Classification Obese Obese BSA - Sveta Vital Signs Temperature (97.8 F-99.1 F) 97.3 F L 97.1 F L Temperature Source Temporal Temporal Pulse Rate (60-100) 94 85 Pulse Location Monitor Respiratory Rate (12-18) 16 18 Respiratory rate source Observation Oxygen Delivery Method Room Air Blood Pressure (90/60-120/80) 125/73 H 88/50 L Blood Pressure Mean (mm Hg) 90 62 Source Monitor Position Sitting Blood Pressure Location Left Arm History Since Last Visit- (Skip if this is Patient's initial visit) Have you changed medications since your No No last visit? Any new allergies or adverse reactions No No Had a fall/change in ADL's that may No No increase risk of falls Signs or symptoms of abuse and/or No No neglect since last visit Have you been in the hospital since your No No last visit? Has dressing in place as prescribed Yes Yes Has compression in place as prescribed N/A N/A Has offloadiing in place as prescribed N/A Yes Experienced any changes in pain level or No management Left Footwear Regular Shoe Right Footwear Regular Shoe Pain Scale: 0-10 Numeric Is Patient Pain Free? Yes Yes Communication Assessment Preferred foreign language stenographer Required Able to Read Able to Write Communication Tools Right Hearing Abillity Left Hearing Abillity Visual Assistive Devices Teaching Assessment Preferences Barriers to Learning Readiness To Learn Willingness to Engage in Self Management Activies Readiness to Engage in Self Management Activities Anxiety Level Cooperation Perception Interest in Health Problem Education Importance Does Patient Smoke tobacco or other substances Smoking Status Functional Assessment Recent Decline in Ability to Perform Culture/Cheondoism/Linoleum Tile Layer Cultural/Cheondoism Needs that may affect Treatment Plan Teaching: Wound Center *Welcome to the Wound Center -Person Taught -Teaching Method -Response to teaching Welcome to the Wound Care Center WC - Nurse 1 - General Ulcer Measurement Start: 02/28/22 09:40 Freq: Status: Active Protocol: Activity Type Activity Date Activity User E-sign Co-sign Detail Recorded Client Recorded Date Recorded By Document 02/28/22 09:40 [facility] [id number] 02/28/22 09:47 [facility] Document 02/28/22 09:44 BM [id number] 02/28/22 09:47 [facility] Document 03/07/22 08:44 [id number] 03/07/22 08:56 JF Document 03/14/22 08:28 BM [id number] 03/14/22 08:30 BM Document 03/28/22 08:11 PL [id number] 03/28/22 08:35 PL 02/28/22 02/28/22 03/07/22 09:40 09:44 08:44 Wound Center Nurse 1 #5- R BUTTOCK -Combined with other wound No No No -Current Size (cm) - Length 5 5 5.5 -Current Size (cm) - Width 6 6 6.3 -Current Size (cm) - Depth 1.5 1.5 0.2 -Total Square Cm 30 30 34.65 -Date of Last Picture (Recall this 02/28/22 02/28/22 field) -Photo Taken Yes Yes No -Epithelialization None Present None Present None Present -Tunneling No No Yes -Tunneling Position (O'clock) 3 -Tunneling Distance (cm) 5.0 -Undermining/Tunneling Yes Yes -Undermining/Tunneling Starts (O'clock 3 3 3 ) -Undermining/Tunneling Ends (O'clock) 7 7 8 -Maximum Distance (cm) 1.6 1.6 1.5 -Circular Undermining No No -Classification - Pressure Ulcer Stage 4 -Exudate Amt Large Large -Exudate Type Serosanguineous Serosanguineous -Wound Margin Distinct, Distinct, Flat & Intact Outline Outline Attached Attached -Granulation Amt Large (67-100%) Large (67-100%) Large (67-100%) -Granulation Quality Red Red Red -Slough/Fibrin No No Yes -Necrosis Amt None Present (0 None Present (0 Small (1-33%) %) %) -Necrotic Tissue Type Adherent Slough -Structure Exposed Muscle,N/A -Texture (Michelle-wound Skin Appearance) Assessed, Assessed, Assessed Scarring Scarring -Moisture (Michelle-wound Skin Appearance) Assessed Assessed Assessed,Dry/ Scaly -Color (Michelle-wound Skin Appearance) Assessed Assessed Assessed -Temperature (Michelle-wound Skin No Abnormality No Abnormality No Abnormality Appearance) (Pt Warm) (Pt Warm) (Pt Warm) -Tenderness on Palpation (Michelle-wound No No No Skin Appearance) -Ulcer Cleansing Soap and Water Soap and Water Wound Cleanser -Foul Odor after Cleansing No No No -Anesthetic Used 5% Lidocaine 5% Lidocaine 5% Lidocaine Gel Gel Gel Lower Limb Edema Present NA 03/14/22 03/28/22 08:28 08:11 Wound Center Nurse 1 #5- R BUTTOCK -Combined with other wound No No -Current Size (cm) - Length 6.7 5.0 -Current Size (cm) - Width 5.6 6.5 -Current Size (cm) - Depth 4.1 4.4 -Total Square Cm 37.52 32.50 -Date of Last Picture (Recall this 03/14/22 field) -Photo Taken Yes -Epithelialization None Present Large 67-100% -Tunneling No No -Tunneling Position (O'clock) -Tunneling Distance (cm) -Undermining/Tunneling No No -Undermining/Tunneling Starts (O'clock ) -Undermining/Tunneling Ends (O'clock) -Maximum Distance (cm) -Circular Undermining No No -Classification - Pressure Ulcer -Exudate Amt Large Large -Exudate Type Serosanguineous Serosanguineous -Wound Margin Distinct, Outline Attached -Granulation Amt Large (67-100%) Large (67-100%) -Granulation Quality Red [place] -Slough/Fibrin Yes Yes -Necrosis Amt Small (1-33%) Small (1-33%) -Necrotic Tissue Type Adherent Slough Adherent Slough -Structure Exposed -Texture (Michelle-wound Skin Appearance) Assessed, Scarring -Moisture (Michelle-wound Skin Appearance) Assessed -Color (Michelle-wound Skin Appearance) Assessed -Temperature (Michelle-wound Skin No Abnormality No Abnormality Appearance) (Pt Warm) (Pt Warm) -Tenderness on Palpation (Michelle-wound No Skin Appearance) -Ulcer Cleansing Soap and Water Rinsed/ Irrigated with Saline -Foul Odor after Cleansing No No -Anesthetic Used 4% Lidocaine 5% Lidocaine Solution Gel Lower Limb Edema Present WC - Nurse 2 - General Ulcer CM Notes Start: 02/28/22 09:40 Freq: Status: Active Protocol: Activity Type Activity Date Activity User E-sign Co-sign Detail Recorded Client Recorded Date Recorded By Document 02/28/22 11:00 PL [id number] 02/28/22 11:02 PL Document 03/07/22 12:35 PL [id number] 03/07/22 12:37 PL Document 03/14/22 09:31 PL [id number] 03/14/22 09:34 PL 02/28/22 03/07/22 03/14/22 11:00 12:35 09:31 Wound Center Nurse 2 #5- R BUTTOCK -Time 10:00 09:04 08:34 -Correct Patient Yes Yes Yes -Correct Side, Site, Position Yes Yes Yes -Correct Procedure Yes Yes Yes -Procedure Performed Yes Yes Yes -Type of Procedure Debridement Debridement Debridement -Clinical Debridement Subcutaneous Subcutaneous Subcutaneous -Tissue Removed Subcutaneous Subcutaneous Subcutaneous -Post Debridement (cm) - Length 4.3 5.5 4.9 -Post Debridement (cm) - Width 6.8 6.2 6.5 -Post Debridement (cm) - Depth 4.0 4.5 4.0 -Total Square (Post) (cm) 29.24 34.10 31.85 -Area of Debridement (cm) - Length 4.3 5.5 4.9 -Area of Debridement (cm) - Width 6.8 6.2 6.5 -Total Square (Area) (cm) 29.24 34.10 31.85 -Tunneling Yes -Tunneling Position (O'clock) 1 -Tunneling Distance (cm) 4.5 -Undermining/Tunneling Yes Yes Yes -Undermining/Tunneling Starts (O'clock 2 12 12 ) -Undermining/Tunneling Ends (O'clock) 4 3 3 -Maximum Distance (cm) 1.2 4.0 3.0 -Undermining/Tunneling Starts #2 (O' 1 2 3 clock) -Undermining/Tunneling Ends #2 (O' 1 4 4 clock) -Maximum Distance #2 (cm) 4.5 1.3 0.9 -Circular Undermining No -Wound/Ulcer Outcome Not Healed Not Healed Not Healed -Ulcer Cleansing Rinsed/ Rinsed/ Rinsed/ Irrigated with Irrigated with Irrigated with Saline Saline Saline -Foul Odor after Cleansing No No No -Bioengineered Tissue No No No -Bleeding Controlled with Pressure Pressure Pressure -Treatment Response Procedure Procedure Procedure Tolerated Well Tolerated Well Tolerated Well -Assistive Device(s) Wheelchair -Debridement - Subq, 1st 20sq cm Yes Yes Yes -Debridement, SubQ, ea addt'l 20sq cm 1 1 1 or part thereof Pain Scale: 0-10 Numeric Is Patient Pain Free? Yes Yes Yes - Nurse 3 - General Ulcer D/C NN Start: 02/28/22 09:40 Freq: Status: Active Protocol: Activity Type Activity Date Activity User E-sign Co-sign Detail Recorded Client Recorded Date Recorded By Document 02/28/22 10:27 [facility] [id number] 02/28/22 10:28 [facility] Document 03/07/22 09:24 [id number] 03/07/22 09:26 RB Document 03/14/22 09:19 [facility] [id number] 03/14/22 09:20 BM 02/28/22 03/07/22 03/14/22 10:27 09:24 09:19 Wound Care Nurse 3 #5- R BUTTOCK -Ulcer Cleansing Rinsed/ Rinsed/ Irrigated with Irrigated with Saline Saline -Foul Odor after Cleansing No No -Negative Pressure Wound Therapy Start -Setting (mmHg) 150 -Negative Pressure is Continuous -Primary Dressing Applied Hysept ($), Mepilex Border Mepilex Border, Nugauze, Iodoform -Other Dressing DRSG PER [place] HUMAN RESOURCES GENERALIST dakins moistened gauze -Primary Dressing Covered/Secured with Dry Gauze, Secured with Tape -NPWT Application Charge NPWT & Debridement (nc ) -Mepilex Border 1 1 -Nugauze, Iodoform / 1 Treatment Response Procedure Procedure Procedure Tolerated Well Tolerated Well Tolerated Well Pain Scale: 0-10 Numeric Is Patient Pain Free? Yes Yes Yes - Visit Discharge Discharge Condition Stable Stable Stable Ambulatory Status Wheelchair Wheelchair Wheelchair Transportation [employer] Private Auto Medication Reconcilliation completed & No provided to patient/care provider Clinical Summary of Care Provided Yes Facility Type Home Health Other HH TO BE SET UP Assessment/Plan Assessment/Plan (1) Stage II pressure ulcer of sacral region: CODE(S): L89.152 - Pressure ulcer of sacral region, stage 2 PLAN: Plan Patient was evaluated in the wound center and debridement was performed. Wound bed has beefy red granulation tissue with some slough, significant tunnelling and undermining as noted above, appears overall stable from last visit. As patient has been having difficulty maintaining seal on wound vac and having frequent potential for contamination from bouts of diarrhea, will hold wound vac for now. Will restart dakins-soaked gauze packed into tunnels, wound bed covered with dakins soaked gauze, silicone border dressing applied over top. Wound cultures obtained grew staph, E. coli, and C. perfringens. Prescribed Linezolid and Augmentin x 14 days based upon C&S. He experienced diarrhea with this regimen. Tried Augmentin alone and addition of probiotics, but still with diarrhea. Now even having diarrhea even after cessation of antibiotics, will obtain stool cultures to rule out C. Dif. Will switch to cipro and flagyl to address E. coli and C. perfringens for now and see if patient tolerates this. After completion of that therapy would attempt to again start the linezolid to address staph. If no success, would consider referral to ID. Instructed patient to obtain stool samples prior to starting new antibiotics. Patient reports General Surgery advised him they feel he should be seen by Plastic Surgery regarding his wound instead, referral was placed. Would like him to be evaluated for possible abscess not connected to the skin tracking toward right hip as seen on CT from ED. He has not yet scheduled appointment to see Plastic Surgery. Encouraged him to do so. Discussed with patient the importance of off-loading (change position every 2 hours at minimum and avoid pressure and friction to area if possible) to prevent further injury and promote healing. Patient still has not yet received off-loading device for wheelchair, hope these will arrive soon. This week also discussed trying to obtain an off-loading hospital bed as well, CM will coordinate ordering this. Also discussed importance of continuing to work towards smoking cessation and increasing protein within his diet to aid in healing. Patient will return to clinic in 1 week for wound care follow-up. He will return sooner or report to the emergency department should symptoms worsen or new symptoms or signs of infection arise.
== END 2022-03-29 23:59 | disposition home or self-care (01) ==
LOC: WC 08:15
PROVIDERS: PCP Family Medicine; Referring Provider Physician Assistant; Visit Provider Physician Assistant
DX: L89.152 Pressure ulcer of sacral region, stage 2 (principal); G95.9 Disease of spinal cord, unspecified; F17.210 Nicotine dependence, cigarettes, uncomplicated; Z99.3 Dependence on wheelchair; B96.20 Unspecified Escherichia coli [E. coli] as the cause of diseases classified elsewhere; B95.8 Unspecified staphylococcus as the cause of diseases classified elsewhere
CPT/HCPCS: 11042; 11045; 87070; 87075; 87077; 87186; 87205; 87493; 99213; G0463

== ENCOUNTER 2022-04-25 09:00 | Outpatient (RCR) | payer BC, MEDICARE, SELFPAY ==
[2022-03-30 00:07] VITALS: BP 88/50; PULSE 85; RESP 18; TEMP 36.2; BMI 35.5
[2022-04-10 13:21] VITALS: BP 130/74; PULSE 76; RESP 16; TEMP 36.3; BMI 35.5
--- NOTE | 2022-04-10 16:33 | PN.PCM_ITS ---
History of Present Illness Date of Service: 04/10/22 Chief Complaint: Pressure ulcer to right buttock History of Wound: This is a 62-year-old white male who presents to the wound healing center today with complaints of pressure ulcer to right buttock. He is accompanied by his who supplements much of the history. This started about 3 months ago but was much smaller in size. Patient's was treating with OTC creams and keeping area clean. A couple weeks ago she noted that the wound began to get much larger. Patient presented to the emergency room on 02/[address] was performed which did reveal subcutaneous and deep soft tissue involvement and possible early abscess formation. The patient was also found to have UTI. He was started on 10 days of antibiotics (Augmentin and Bactrim) for both the wound and UTI which he has since completed. He has had a sacral pressure ulcer in the past, last seen here in the wound clinic in March 2018. The patient has very limited mobility as a result of a prior spine injury/surgery. He utilizes a wheelchair at all times and requires a lm lift to transfer to cot here. He sits in his wheelchair almost all day, not really able to change positions. He was not using an air mattress or any other off- loading device in his wheelchair or bed at home. He does continue to smoke but has been cutting back and is down to about 4-5 cigarettes a day. He is not diabetic, not on any blood thinners. Subjective Subjective Patient did not present to the wound center last week, transportation issues. He reports dressing changes have been going well -- performed by HH and/or his daily or more often as needed. He does report that he has trouble with both his bowels and bladder which at times cause contamination, he does his best to clean but has to wait until his is home to fully change the dressing. He has received the off-loading pad that was intended for his wheelchair. He states it is too big for the wheelchair, but fits well in his recliner at home so he has it there. He spends most of his time between his recliner and bed when he is at home, so this works well. He also received a new off-loading mattress for his bed. He reports both of these feel more comfortable. He also continues to change position as best he can throughout the day, he transfers himself at home. He has been tolerating the cipro and flagyl well, no diarrhea or other adverse effects. He denies F/C, N/V, increased pain, drainage, or foul odor. Objective Data Objective Data Vital Signs: Vital Signs Temp Pulse Resp BP O2 Del Method 97.3 F L 76 16 130/74 H Room Air 04/10/22 13:21 04/10/22 13:21 04/10/22 13:21 04/10/22 13:21 04/10/22 13:21 Oxygen Delivery Method Room Air Weight: 220 lb Body Mass Index (BMI) 35.5 Charges/Coding Wound Center CF Procedures [id number]: 92043 RMVL DEVITAL TIS 20 CM/< Multi Select Codes Wound Center CF Procedures [id number]: 62066 RMVL DEVITAL TIS 20 CM/< Physical Exam Const alert, oriented x3 and no apparent distress HEENT normocephalic Head and Scalp: atraumatic Nose: external nose normal Eyes EOMs intact bilaterally General Eye: normal appearance of both eyes Neck full ROM and no lymphadenopathy General: trachea midline Resp normal respiratory effort Effort and Inspection: able to speak in complete sentences Cardio regular rate and regular rhythm Peripheral Pulses: brachial pulses present and radial pulses present Extremity Extremity Narrative: Patient has splints and knee high socks, not removed for examination of extremities. Skin Wounds: wounds noted Wound Narrative: Pressure ulcer noted on the medial right buttock near the gluteal fold/anus. Surrounding skin with nonblanching erythema and purple discoloration related to pressure injury. No foul-smelling purulent drainage noted or expressed. Wound bed appears overall beefy red granulation tissue with some slough. Epibole and undermining noted at the edges. There is tunneling of about centrally, does not feel like it goes to bone. Irritation to the periwound area seems improved from last visit. Appears stable overall. Neuro oriented x3 and CN's II-XII intact bilaterally Neuro Narrative: Patient has significantly limited mobility secondary to spinal injury, utilizes wheelchair. Patient does have muscle spasms/twitches as a result of injury. Psych mental status grossly normal Appearance: disheveled Attitude: calm Activity / Motor Behavior: appropriate eye contact Speech: normal speech Mood & Affect: euthymic mood Debridement Note Debridement Note Wound debrided: Right buttock pressure ulcer Laterality: Right Type of Debridement: Excisional debridement Anesthesia Used: 5% Lidocaine Gel Depth: Down to and including healthy tissue and in the subcutaneous layer Percentage of wound debrided: 100 Instrument Used: 3mm curette Tissue Removed: slough, devitalized tissue Severity: Fat Layer Exposed Amount of bleeding with debridement: Mild Bleeding Controlled with: Pressure Patient tolerated procedure: Patient tolerated procedure well Post-Debridement Measurements and Additional Note: Post-Debridement Measurements/Treatment - Nurse 1 - General Ulcer Assessment Start: 04/10/22 13:06 Freq: Status: Active Protocol: KIRA Activity Type Activity Date Activity User E-sign Co-sign Detail Recorded Client Recorded Date Recorded By Document 04/10/22 13:21 DL [id number] 04/10/22 13:24 DL 04/10/22 13:21 WC - Today's Visit Information Type of service Follow-up Visit (Physician/DRILL DOCTOR ) Arrival Mode Wheelchair Transfer Assistance Lm Lift Patient Identification Verified (Name & Yes ) Patient Requires Transmission-Based No Precautions Height and Weight Body Mass Index (BMI) 35.5 BMI Classification Obese Vital Signs Temperature (97.8 F-99.1 F) 97.3 F L Temperature Source Temporal Pulse Rate (60-100) 76 Pulse Location Monitor Respiratory Rate (12-18) 16 Respiratory rate source Observation Oxygen Delivery Method Room Air Blood Pressure (90/60-120/80) 130/74 H Blood Pressure Mean (mm Hg) 92 Source Monitor Position Sitting Blood Pressure Location Right Arm History Since Last Visit- (Skip if this is Patient's initial visit) Have you changed medications since your No last visit? Any new allergies or adverse reactions No Had a fall/change in ADL's that may No increase risk of falls Signs or symptoms of abuse and/or No neglect since last visit Have you been in the hospital since your No last visit? Has dressing in place as prescribed Yes Has compression in place as prescribed N/A Has offloadiing in place as prescribed N/A Experienced any changes in pain level or No management Left Footwear Regular Shoe Right Footwear Regular Shoe Pain Scale: 0-10 Numeric Is Patient Pain Free? Yes - Nurse 1 - General Ulcer Measurement Start: 04/10/22 13:06 Freq: Status: Active Protocol: Activity Type Activity Date Activity User E-sign Co-sign Detail Recorded Client Recorded Date Recorded By Document 04/10/22 13:21 DL [id number] 04/10/22 13:24 DL 04/10/22 13:21 Wound Center Nurse 1 #5- R BUTTOCK -Combined with other wound No -Current Size (cm) - Length 5.5 -Current Size (cm) - Width 4.9 -Current Size (cm) - Depth 5.5 -Total Square Cm 26.95 -Epithelialization None Present -Tunneling No -Undermining/Tunneling Yes -Undermining/Tunneling Starts (O'clock 1 ) -Undermining/Tunneling Ends (O'clock) 4 -Maximum Distance (cm) 2.2 -Circular Undermining No -Exudate Amt Large -Exudate Type Serosanguineous -Wound Margin Distinct, Outline Attached -Granulation Amt Large (67-100%) -Granulation Quality Red -Slough/Fibrin Yes -Necrosis Amt Small (1-33%) -Necrotic Tissue Type Adherent Slough -Texture (Michelle-wound Skin Appearance) Assessed, Scarring -Moisture (Michelle-wound Skin Appearance) Assessed -Color (Michelle-wound Skin Appearance) Assessed -Temperature (Michelle-wound Skin No Abnormality Appearance) (Pt Warm) -Tenderness on Palpation (Michelle-wound No Skin Appearance) -Ulcer Cleansing Soap and Water -Foul Odor after Cleansing No -Anesthetic Used 4% Lidocaine Solution WC - Nurse 2 - General Ulcer CM Notes Start: 04/10/22 13:06 Freq: Status: Active Protocol: Activity Type Activity Date Activity User E-sign Co-sign Detail Recorded Client Recorded Date Recorded By Document 04/10/22 13:51 MW [id number] 04/10/22 14:01 MW 04/10/22 13:51 Wound Center Nurse 2 -Time 13:52 -Correct Patient Yes -Correct Side, Site, Position Yes -Correct Procedure Yes -Procedure Performed Yes -Type of Procedure Debridement -Clinical Debridement Subcutaneous -Tissue Removed Subcutaneous -Post Debridement (cm) - Length 5.9 -Post Debridement (cm) - Width 5.0 -Post Debridement (cm) - Depth 2.2 -Total Square (Post) (cm) 29.50 -Area of Debridement (cm) - Length 5.9 -Area of Debridement (cm) - Width 5.0 -Total Square (Area) (cm) 29.50 -Tunneling Yes -Tunneling Position (O'clock) 2 -Tunneling Distance (cm) 5.0 -Tunneling Position #2 (O'clock) 4 -Tunneling Distance #2 (cm) 4.5 -Undermining/Tunneling Yes -Undermining/Tunneling Starts (O'clock 12 ) -Undermining/Tunneling Ends (O'clock) 6 -Maximum Distance (cm) 1.4 -Circular Undermining No -Wound/Ulcer Outcome Not Healed -Ulcer Cleansing Rinsed/ Irrigated with Saline -Foul Odor after Cleansing No -Bioengineered Tissue No -Bleeding Controlled with Pressure -Treatment Response Procedure Tolerated Well -Offloading No -Debridement - Subq, 1st 20sq cm Yes -Debridement, SubQ, ea addt'l 20sq cm 1 or part thereof Pain Scale: 0-10 Numeric Is Patient Pain Free? Yes - Nurse 3 - General Ulcer D/C NN Start: 04/10/22 13:06 Freq: Status: Active Protocol: Activity Type Activity Date Activity User E-sign Co-sign Detail Recorded Client Recorded Date Recorded By Document 04/10/22 14:09 [facility] [id number] 04/10/22 14:11 [facility] 04/10/22 14:09 Wound Care Nurse 3 #5- R BUTTOCK -Ulcer Cleansing Rinsed/ Irrigated with Saline -Foul Odor after Cleansing No -Primary Dressing Applied Mepilex Border -Other Dressing DAKINS MOIST GAUZE DRSG PER DL FLIGHT OPERATIONS INSPECTOR -Primary Dressing Covered/Secured with Dry Gauze, Secured with Tape -Mepilex Border 1 Treatment Response Procedure Tolerated Well Pain Scale: 0-10 Numeric Is Patient Pain Free? Yes - Visit Discharge Discharge Condition Stable Ambulatory Status Wheelchair Transportation TRANSPORT Facility Type Home Health Assessment/Plan Assessment/Plan (1) Stage II pressure ulcer of sacral region: CODE(S): L89.152 - Pressure ulcer of sacral region, stage 2 PLAN: Plan Patient was evaluated in the wound center and debridement was performed. Wound bed has beefy red granulation tissue with some slough, significant tunnelling and undermining as noted above, appears overall stable from last visit. Continue dakins-soaked gauze packed into tunnels, wound bed covered with dry gauze and then silicone border dressing applied over top. The periwound skin irritation seems to have resolved with the silicone bordered dressing. Stool cultures were negative for C. diff. He has been tolerating the cipro and flagyl regimen without issue. After completion of cipro/flagyl, would like to attempt to again start the linezolid to address staph. If no success, would consider referral to ID. He is scheduled to consult with Dr. Messina on Thursday. Appreciate his input. Discussed with patient the importance of off-loading (change position every 2 hours at minimum and avoid pressure and friction to area if possible) to prevent further injury and promote healing. He now has off-loading devices, I hope these will help. Also discussed importance of continuing to work towards smoking cessation and increasing protein within his diet to aid in healing. Patient will return to clinic in 1 week for wound care follow-up. He will return sooner or report to the emergency department should symptoms worsen or new symptoms or signs of infection arise.
[2022-04-15 13:50] VITALS: BP 112/54; PULSE 96; RESP 16; TEMP 36.1; BMI 35.5
--- NOTE | 2022-04-15 15:33 | HP.PCM_ITS ---
History of Present Illness Date of Service: 04/15/22 Chief Complaint: WOUND CENTER CONSULT Referring Provider: CARLOS Crouch. Field Training Agent: Dr. Messina Right ischial pressure sore, Stage IV. History of Wound: This is a 62-year-old white male who presented to the wound healing center with complaints of pressure ulcer to right buttock area with extension to the right ischial bone. This started in October,. Patient's was treating with OTC creams and keeping area clean. The ulcer starting increasing in size and went to the Emergency Department on 02/08/22. CT showed subcutaneous and deep soft tissue involvement and possible early abscess formation. The bone was not addressed. He had a wound culture on 02/28/22. It was positive for E. coli, Staphylococcus aureus, and Clostridium perfringens. He was treated with Augmentin. The patient has very limited mobility as a result of a prior spine injury/surgery. He utilizes a wheelchair at all times and requires a billy lift to transfer to cot here. He sits in his wheelchair almost all day, not really able to change positions. They finally obtained a low air loss overlay to their regular mattress at home. A roho cushion was ordered for his wheelchair. Patient is a smoker. Anticipate increased metabolic demands from the infection. Encourage nutritional supplementation with protein to help the healing process. Today he denies fever. His appetite is ok. Progress of Wound: stable. good granulation tissue. extends to the ischial bone. PFSH Medical History Bedridden Pressure sore Right ischial pressure sore, stage 4 Smoker Home Medications baclofen 10 mg tablet 15 mg PO TID spasm 12/17/17 [History Last Taken Unknown] esomeprazole magnesium 40 mg capsule,delayed release (Nexium) 40 mg PO DAILY 12/17/17 [History Last Taken Unknown] levothyroxine 125 mcg tablet 125 mcg PO DAILY 12/17/17 [History Last Taken Unknown] tamsulosin 0.4 mg capsule 0.4 mg PO BID 12/17/17 [History Last Taken Unknown] acetaminophen 650 mg tablet 650 mg PO Q8H 02/08/22 [History Last Taken Unknown] icosapent ethyl 1 gram capsule (Vascepa) 2 g PO BID cholesterol 02/08/22 [History Last Taken Unknown] Lactobacillus rhamnosus GG 12 billion cell-inulin 200 mg capsule (Culturelle [facility]) 1 cap PO DAILY 30 days #30 caps 03/11/22 [Rx Last Taken Unknown] ciprofloxacin HCl 500 mg tablet (Cipro) 500 mg PO BID #28 tabs 03/28/22 [Rx Last Taken Unknown] Allergy/AdvReac Type Severity Reaction Status Date / Time Environmental Allergies: Allergy NEEDS Verified 02/08/22 10:59 Uncoded FOLLOW-UP [dust] house dust Allergy Other Verified 02/28/22 09:49 pollen extracts Allergy NEEDS Verified 02/08/22 10:59 FOLLOW-UP Surgical History Hx of spinal surgery Social History Smoking Status: Heavy Smoker (>10/day) ROS ROS Narrative REVIEW OF SYSTEMS General - Denies fever, fatigue, and weight loss. Eyes - Denies cataracts and glaucoma. ENT - Denies nasal congestion and sore throat. Endocrine - Denies excessive thirst and urination. Skin - Denies suspicious lesions and skin cancer. Has a right ischial pressure sore, Stage IV. Musculoskeletal - Denies joint pain, joint stiffness, weakness of muscles and joints, back pain, and arthritis. Neuro - Denies headaches. Cardiovascular - Denies chest pain, fatigue, and shortness of breath with exertion. Psych - Denies anxiety and depression. Respiratory - Denies chronic cough and shortness of breath. Patient is a smoker. Gastrointestinal - Denies nausea, vomiting, diarrhea, and constipation. Hematologic - Denies abnormal bruising and bleeding. Genitourinary - Denies hematuria and urinary frequency. Vital Signs Vital Signs Vital Signs: 04/15/22 13:50 Temperature 96.9 F L Temperature Source Temporal Pulse Rate 96 Respiratory Rate 16 Blood Pressure 112/54 L Blood Pressure Mean 73 Blood Pressure Source Monitor Blood Pressure Position Sitting Blood Pressure Location Left Arm Oxygen Delivery Method Room Air Weight Weight: 220 lb Body Mass Index (BMI) 35.5 Physical Exam Narrative PHYSICAL EXAMINATION General - Alert and Oriented. HEENT - PERRL. EOMI. Neck - Supple and nontender. Lungs - Clear to auscultation. Heart - Regular rate and rhythm. Abdomen - Soft and nondistended. Buttocks - Right ischial pressure sore with extension down to the ischial bone, Stage IV. Good granulation tissue present. Very close to the anal opening, about 1.5 cm. Wound measures 6.5 x 6.5 x 5 cm. Extremities - No axillary adenopathy. Radial pulses are palpable. No inguinal adenopathy. Dorsalis pedis pulses are palpable. Neuro - CN II-XII grossly intact. Psych - Normal mood and affect. Debridement Note Debridement Note Wound debrided: #5 Right ischial area. Laterality: Right Wound Grade/Stage: IV. Type of Debridement: Excisional debridement Anesthesia Used: 4% Lidocaine Solution Depth: Down to and including healthy tissue, in the subcutaneous layer, to muscle and to bone (bone palpable but not exposed.) Percentage of wound debrided: 100 Instrument Used: 7mm curette Tissue Removed: subcutaneous tissue and muscle. Severity: Fat Layer Exposed (muscle is exposed. bone is palpable but not debrided.) Amount of bleeding with debridement: Mild Bleeding Controlled with: Pressure and Compression and gauze Patient tolerated procedure: Patient tolerated procedure well Post-Debridement Measurements and Additional Note: Post-Debridement Measurements/Treatment - Nurse 1 - General Ulcer Assessment Start: 04/10/22 13:06 Freq: Status: Active Protocol: DILCIA.NORIS Activity Type Activity Date Activity User E-sign Co-sign Detail Recorded Client Recorded Date Recorded By Document 04/10/22 13:21 [id number] 04/10/22 13:24 DL Document 04/15/22 13:50 [facility] [id number] 04/15/22 13:57 [facility] 04/10/22 04/15/22 13:21 13:50 - Today's Visit Information Type of service Follow-up Visit Follow-up Visit (Physician/OCCUPATIONAL HEALTH NURSING DIRECTOR (Physician/OCCUPATIONAL HEALTH NURSING DIRECTOR ) ) Arrival Mode Wheelchair Wheelchair Transfer Assistance Billy Lift Billy Lift Patient Identification Verified (Name & Yes Yes ) Patient Requires Transmission-Based No No Precautions Height and Weight Body Mass Index (BMI) 35.5 35.5 BMI Classification Obese Obese Vital Signs Temperature (97.8 F-99.1 F) 97.3 F L 96.9 F L Temperature Source Temporal Temporal Pulse Rate (60-100) 76 96 Pulse Location Monitor Monitor Respiratory Rate (12-18) 16 16 Respiratory rate source Observation Observation Oxygen Delivery Method Room Air Room Air Blood Pressure (90/60-120/80) 130/74 H 112/54 L Blood Pressure Mean 92 73 Source Monitor Monitor Position Sitting Sitting Blood Pressure Location Right Arm Left Arm History Since Last Visit- (Skip if this is Patient's initial visit) Have you changed medications since your No No last visit? Any new allergies or adverse reactions No No Had a fall/change in ADL's that may No No increase risk of falls Signs or symptoms of abuse and/or No No neglect since last visit Have you been in the hospital since your No No last visit? Has dressing in place as prescribed Yes Yes Has compression in place as prescribed N/A N/A Has offloadiing in place as prescribed N/A N/A Experienced any changes in pain level or No No management Left Footwear Regular Shoe Regular Shoe Right Footwear Regular Shoe Regular Shoe Pain Scale: 0-10 Numeric Is Patient Pain Free? Yes Yes WC - Nurse 1 - General Ulcer Measurement Start: 04/10/22 13:06 Freq: Status: Active Protocol: Activity Type Activity Date Activity User E-sign Co-sign Detail Recorded Client Recorded Date Recorded By Document 04/10/22 13:21 DL [id number] 04/10/22 13:24 DL Document 04/15/22 13:50 [facility] [id number] 04/15/22 13:57 BMF 04/10/22 04/15/22 13:21 13:50 Wound Center Nurse 1 #5- R ischium -Combined with other wound No No -Current Size (cm) - Length 5.5 6 -Current Size (cm) - Width 4.9 5.9 -Current Size (cm) - Depth 5.5 5.2 -Total Square Cm 26.95 35.4 -Date of Last Picture (Recall this 04/15/22 field) -Photo Taken Yes -Epithelialization None Present None Present -Tunneling No No -Undermining/Tunneling Yes Yes -Undermining/Tunneling Starts (O'clock 1 5 ) -Undermining/Tunneling Ends (O'clock) 4 5 -Maximum Distance (cm) 2.2 0.8 -Circular Undermining No -Exudate Amt Large Large -Exudate Type Serosanguineous Serosanguineous -Wound Margin Distinct, Distinct, Outline Outline Attached Attached -Granulation Amt Large (67-100%) Large (67-100%) -Granulation Quality Red Red -Slough/Fibrin Yes Yes -Necrosis Amt Small (1-33%) Small (1-33%) -Necrotic Tissue Type Adherent Slough Adherent Slough -Texture (Michelle-wound Skin Appearance) Assessed, Assessed, Scarring Scarring -Moisture (Michelle-wound Skin Appearance) Assessed Assessed -Color (Michelle-wound Skin Appearance) Assessed Assessed -Temperature (Michelle-wound Skin No Abnormality No Abnormality Appearance) (Pt Warm) (Pt Warm) -Tenderness on Palpation (Michelle-wound No No Skin Appearance) -Ulcer Cleansing Soap and Water Soap and Water -Foul Odor after Cleansing No No -Anesthetic Used 4% Lidocaine 4% Lidocaine Solution Solution WC - Nurse 2 - General Ulcer CM Notes Start: 04/10/22 13:06 Freq: Status: Active Protocol: Activity Type Activity Date Activity User E-sign Co-sign Detail Recorded Client Recorded Date Recorded By Document 04/10/22 13:51 [id number] 04/10/22 14:01 MW Document 04/15/22 14:47 [id number] 04/15/22 14:51 04/10/22 04/15/22 13:51 14:47 Wound Center Nurse 2 #5- R ischium -Time 13:52 14:48 -Correct Patient Yes Yes -Correct Side, Site, Position Yes Yes -Correct Procedure Yes Yes -Procedure Performed Yes Yes -Type of Procedure Debridement Debridement -Clinical Debridement Subcutaneous Muscle / Fascia -Tissue Removed Subcutaneous Muscle,Fascia -Post Debridement (cm) - Length 5.9 6.5 -Post Debridement (cm) - Width 5.0 6.5 -Post Debridement (cm) - Depth 2.2 5.0 -Total Square (Post) (cm) 29.50 42.25 -Area of Debridement (cm) - Length 5.9 6.5 -Area of Debridement (cm) - Width 5.0 6.5 -Total Square (Area) (cm) 29.50 42.25 -Tunneling Yes No -Tunneling Position (O'clock) 2 -Tunneling Distance (cm) 5.0 -Tunneling Position #2 (O'clock) 4 -Tunneling Distance #2 (cm) 4.5 -Undermining/Tunneling Yes No -Undermining/Tunneling Starts (O'clock 12 ) -Undermining/Tunneling Ends (O'clock) 6 -Maximum Distance (cm) 1.4 -Circular Undermining No No -Wound/Ulcer Outcome Not Healed Not Healed -Ulcer Cleansing Rinsed/ Rinsed/ Irrigated with Irrigated with Saline Saline -Foul Odor after Cleansing No No -Bioengineered Tissue No No -Bleeding Controlled with Pressure Pressure -Treatment Response Procedure Procedure Tolerated Well Tolerated Well -Offloading No No -Pressure Reduction Wheelchair cushion -Debridement - Subq, 1st 20sq cm Yes -Debridement, SubQ, ea addt'l 20sq cm 1 or part thereof -Debridement - Muscle / Fascia, 1st Yes 20sq cm -Debridement, Muscle/Fascia, ea addt'l 2 20sq cm or part thereof Pain Scale: 0-10 Numeric Is Patient Pain Free? Yes Yes - Nurse 3 - General Ulcer D/C NN Start: 04/10/22 13:06 Freq: Status: Active Protocol: Activity Type Activity Date Activity User E-sign Co-sign Detail Recorded Client Recorded Date Recorded By Document 04/10/22 14:09 [facility] [id number] 04/10/22 14:11 [facility] 04/10/22 14:09 Wound Care Nurse 3 #5- R ischium -Ulcer Cleansing Rinsed/ Irrigated with Saline -Foul Odor after Cleansing No -Primary Dressing Applied Mepilex Border -Other Dressing DAKINS MOIST GAUZE DRSG PER DL RESTAURANT SUPERVISOR -Primary Dressing Covered/Secured with Dry Gauze, Secured with Tape -Mepilex Border 1 Treatment Response Procedure Tolerated Well Pain Scale: 0-10 Numeric Is Patient Pain Free? Yes - Visit Discharge Discharge Condition Stable Ambulatory Status Wheelchair Transportation TRANSPORT Facility Type Home Health Lab / Micro Data Attestation: I reviewed the patient's lab results. Charges/Coding Visit Charges Office Visits / Consults: 75882 OV L5 New (25 Modifier ICD-10 - L89.314, M86.9, Z74.01, F17.200) Procedures Integumentary 111xxx-113xx: 09052 Lillian musc/fascia 20 sq cm/< (ICD-10 - L89.314, M86.9, Z74.01, F17.200) Add On Codes: 79969 Lillian musc/fascia add-on (X2 units ICD-10 - L89.314, M86.9, Z74.01, F17.200) Assessment/Plan Assessment/Plan (1) Right ischial pressure sore, stage 4: CODE(S): L89.314 - Pressure ulcer of right buttock, stage 4 (2) Osteomyelitis of right side of pelvis: CODE(S): M86.9 - Osteomyelitis, unspecified (3) Bedridden: CODE(S): Z74.01 - Bed confinement status (4) Smoker: CODE(S): F17.200 - Nicotine dependence, unspecified, uncomplicated PLAN: Plan Medical records reviewed. Cultures reviewed. Labs and x-rays and CT reviewed. Will continue the Dakin's dressing changes to the right ischial pressure sore. Patient has a right ischial pressure sore that extends down to the ischial bone, Stage IV. It is very close to the anal opening, about 1.5 cm. Recommend excision of this pressure sore along with partial ostectomy for osteomyelitis. The excision will make the ulcer bigger. Will try and place a VAC into the pressure sore after surgery. It may be difficult because of the close proximity to the anal opening. At the time of the surgery he will spend the night in the hospital with a surgical observation overnight stay. At that time, will obtain a General Surgery evaluation for a diverting colostomy before discharge. The colostomy can then be scheduled electively. Because the patient is prone when I proceed with my surgery, I would have to wait at least 3 weeks to allow the stoma to mature. I suspect osteomyelitis and the need for half-way IV antibiotics through the use of a PICC line. The patient just obtained a low air loss overlay to his mattress at home. He needs a low air loss bed because of the severity of the pressure sore extending down to and probably involving the bone. While in hospital, I will order a CT Pelvis to look for evidence of osteomyelitis. Will check a Prealbumin and encourage nutritional supplementation with protein to help the healing process. He had a wound culture on 02/28/22. It was positive for E. coli, Staphylococcus aureus, and Clostridium perfringens. He was treated with Augmentin. After excision of the pressure sore, will need to control the infection with antibiotics, maximize his nutrition by checking a Prealbumin monthly before considering wound reconstruction with muscle flaps. Anticipate 6-12 months. Will schedule the surgery in the next 1-2 weeks. Patient was informed of the risks and complications of the procedure including alternatives to surgery. These were discussed with the patient personally. Patient voices understanding and wishes to proceed. Potential risks and complications included but not inclusive of bleeding, infection seroma, hematoma, bruising, swelling, prolonged need for drains, loss of sensation to skin, partial or complete loss of skin flap and/or nipple graft, wound breakdown, need for wound care, poor scarring, poor aesthetic outcome, intra operative cardiac or neurologic events, DVT, PE, and reaction to anesthesia. Encouraged patient to stop smoking as it may have deleterious effects on wound healing.
[2022-04-25 08:01] VITALS: BP 100/42; PULSE 88; TEMP 35.9; BMI 35.5
--- NOTE | 2022-04-25 08:56 | PN.PCM_ITS ---
History of Present Illness Date of Service: 04/25/22 Chief Complaint: Right ischial pressure sore, Stage IV. History of Wound: This started about 4 months ago but was much smaller in size. Patient's was treating with OTC creams and keeping area clean. She noted that the wound began to get much larger. Patient presented to the emergency room on 02/[address] was performed which did reveal subcutaneous and deep soft tissue involvement and possible early abscess formation. The patient was also found to have UTI. He was started on 10 days of antibiotics (Augmentin and Bactrim) for both the wound and UTI which he has since completed. He has had a sacral pressure ulcer in the past, last seen here in the wound clinic in March 2018. The patient has very limited mobility as a result of a prior spine injury/surgery. He utilizes a wheelchair at all times and requires a billy lift to transfer to cot here. He sits in his wheelchair almost all day, not really able to change positions. He was not using an air mattress or any other off- loading device in his wheelchair or bed at home. He does continue to smoke but has been cutting back and is down to about 4-5 cigarettes a day. He is not diabetic, not on any blood thinner Progress of Wound: Wound continues to have good granulation tissues, stable appearance, to bone. Subjective Subjective Patient continues to do well with dressing changes at home with assistance of HH and . He denies F/C, N/V, diarrhea, increased pain, foul-smelling drainage. He completed regimen of cipro and flagyl. He was evaluated by Dr. Messina last week. He is scheduled for initial surgery next Thursday for operative debridement with plan to obtain samples for bone pathology. Objective Data Objective Data Vital Signs: Vital Signs Temp Pulse Resp BP O2 Del Method 96.6 F L 88 16 100/42 L Room Air 04/25/22 08:01 04/25/22 08:01 04/15/22 13:50 04/25/22 08:04/15/22 13:50 Oxygen Delivery Method Room Air Weight: 220 lb Body Mass Index (BMI) 35.5 Charges/Coding Visit Charges Office Visits / Consults: 39977 OV L1 Est Physical Exam Const alert, oriented x3 and no apparent distress HEENT normocephalic Head and Scalp: atraumatic Nose: external nose normal Eyes EOMs intact bilaterally General Eye: normal appearance of both eyes Neck full ROM and no lymphadenopathy General: trachea midline Resp normal respiratory effort Effort and Inspection: able to speak in complete sentences Cardio regular rate and regular rhythm Peripheral Pulses: brachial pulses present and radial pulses present Extremity Extremity Narrative: Patient has splints and knee high socks, not removed for examination of extremities. Skin Wounds: wounds noted Wound Narrative: Stage IV pressure ulcer extending to bone on the medial right buttock very close to anus. Surrounding skin with nonblanching erythema and purple discoloration related to pressure injury. Wound bed appears overall beefy red granulation tissue with some slough. Epibole and undermining noted at the edges. Appears stable overall. Neuro oriented x3 and CN's II-XII intact bilaterally Neuro Narrative: Patient has significantly limited mobility secondary to spinal injury, utilizes wheelchair. Patient does have muscle spasms/twitches as a result of injury. Psych mental status grossly normal Appearance: disheveled Attitude: calm Activity / Motor Behavior: appropriate eye contact Speech: normal speech Mood & Affect: euthymic mood Debridement Note Debridement Note No debridement was completed: No debridement was completed today Post-Debridement Measurements and Additional Note: Post-Debridement Measurements/Treatment - Nurse 1 - General Ulcer Assessment Start: 04/10/22 13:06 Freq: Status: Active Protocol: KIRA Activity Type Activity Date Activity User E-sign Co-sign Detail Recorded Client Recorded Date Recorded By Document 04/10/22 13:21 [id number] 04/10/22 13:24 DL Document 04/15/22 13:50 [facility] [id number] 04/15/22 13:57 [facility] Document 04/25/22 08:01 AK [id number] 04/25/22 08:14 AK 04/10/22 04/15/22 04/25/22 13:21 13:50 08:01 - Today's Visit Information Type of service Follow-up Visit Follow-up Visit Follow-up Visit (Physician/INSULATION CUPOLA OPERATOR (Physician/INSULATION CUPOLA OPERATOR (Physician/INSULATION CUPOLA OPERATOR ) ) ) Arrival Mode Wheelchair Wheelchair Wheelchair Transfer Assistance Billy Lift Billy Lift Billy Lift Patient Identification Verified (Name & Yes Yes Yes ) Patient Requires Transmission-Based No No No Precautions Safety Precautions NA Height and Weight Body Mass Index (BMI) 35.5 35.5 35.5 BMI Classification Obese Obese Obese Vital Signs Temperature (97.8 F-99.1 F) 97.3 F L 96.9 F L 96.6 F L Temperature Source Temporal Temporal Temporal Pulse Rate (60-100) 76 96 88 Pulse Location Monitor Monitor Monitor Respiratory Rate (12-18) 16 16 Respiratory rate source Observation Observation Oxygen Delivery Method Room Air Room Air Blood Pressure (90/60-120/80) 130/74 H 112/54 L 100/42 L Blood Pressure Mean (mm Hg) 92 73 61 Source Monitor Monitor Monitor Position Sitting Sitting Blood Pressure Location Right Arm Left Arm History Since Last Visit- (Skip if this is Patient's initial visit) Have you changed medications since your No No No last visit? Any new allergies or adverse reactions No No No Had a fall/change in ADL's that may No No No increase risk of falls Signs or symptoms of abuse and/or No No No neglect since last visit Have you been in the hospital since your No No No last visit? Has dressing in place as prescribed Yes Yes Yes Has compression in place as prescribed N/A N/A N/A Has offloadiing in place as prescribed N/A N/A Yes Experienced any changes in pain level or No No No management Left Footwear Regular Shoe Regular Shoe Regular Shoe Right Footwear Regular Shoe Regular Shoe Regular Shoe Pain Scale: 0-10 Numeric Is Patient Pain Free? Yes Yes No WC - Nurse 1 - General Ulcer Measurement Start: 04/10/22 13:06 Freq: Status: Active Protocol: Activity Type Activity Date Activity User E-sign Co-sign Detail Recorded Client Recorded Date Recorded By Document 04/10/22 13:21 DL [id number] 04/10/22 13:24 DL Document 04/15/22 13:50 [facility] [id number] 04/15/22 13:57 BMF Document 04/25/22 08:01 AK [id number] 04/25/22 08:14 AK 04/10/22 04/15/22 04/25/22 13:21 13:50 08:01 Wound Center Nurse 1 #5- R ischium -Combined with other wound No No No -Current Size (cm) - Length 5.5 6 7 -Current Size (cm) - Width 4.9 5.9 3.5 -Current Size (cm) - Depth 5.5 5.2 4.9 -Total Square Cm 26.95 35.4 24.5 -Date of Last Picture (Recall this 04/15/22 04/25/22 field) -Photo Taken Yes Yes -Epithelialization None Present None Present -Tunneling No No No -Undermining/Tunneling Yes Yes No -Undermining/Tunneling Starts (O'clock 1 5 ) -Undermining/Tunneling Ends (O'clock) 4 5 -Maximum Distance (cm) 2.2 0.8 -Circular Undermining No No -Classification - Thickness Full Thickness without Exposed Support Structure -Change in Wound Grade/Stage No -Exudate Amt Large Large Large -Exudate Type Serosanguineous Serosanguineous Yellow/Green -Wound Margin Distinct, Distinct, Distinct, Outline Outline Outline Attached Attached Attached -Granulation Amt Large (67-100%) Large (67-100%) Large (67-100%) -Granulation Quality Red Red [place],Red -Slough/Fibrin Yes Yes Yes -Necrosis Amt Small (1-33%) Small (1-33%) Small (1-33%) -Necrotic Tissue Type Adherent Slough Adherent Slough Adherent Slough -Structure Exposed Muscle -Texture (Michelle-wound Skin Appearance) Assessed, Assessed, No Abnormality, Scarring Scarring Assessed -Moisture (Michelle-wound Skin Appearance) Assessed Assessed No Abnormality, Assessed -Color (Michelle-wound Skin Appearance) Assessed Assessed No Abnormality, Assessed -Temperature (Michelle-wound Skin No Abnormality No Abnormality No Abnormality Appearance) (Pt Warm) (Pt Warm) (Pt Warm) -Tenderness on Palpation (Michelle-wound No No No Skin Appearance) -Ulcer Cleansing Soap and Water Soap and Water Soap and Water -Foul Odor after Cleansing No No No -Anesthetic Used 4% Lidocaine 4% Lidocaine 4% Lidocaine Solution Solution Solution WC - Nurse 2 - General Ulcer CM Notes Start: 04/10/22 13:06 Freq: Status: Active Protocol: Activity Type Activity Date Activity User E-sign Co-sign Detail Recorded Client Recorded Date Recorded By Document 04/10/22 13:51 MW [id number] 04/10/22 14:01 MW Document 04/15/22 14:47 [id number] 04/15/22 14:51 04/10/22 04/15/22 13:51 14:47 Wound Center Nurse 2 #5- R ischium -Time 13:52 14:48 -Correct Patient Yes Yes -Correct Side, Site, Position Yes Yes -Correct Procedure Yes Yes -Procedure Performed Yes Yes -Type of Procedure Debridement Debridement -Clinical Debridement Subcutaneous Muscle / Fascia -Tissue Removed Subcutaneous Muscle,Fascia -Post Debridement (cm) - Length 5.9 6.5 -Post Debridement (cm) - Width 5.0 6.5 -Post Debridement (cm) - Depth 2.2 5.0 -Total Square (Post) (cm) 29.50 42.25 -Area of Debridement (cm) - Length 5.9 6.5 -Area of Debridement (cm) - Width 5.0 6.5 -Total Square (Area) (cm) 29.50 42.25 -Tunneling Yes No -Tunneling Position (O'clock) 2 -Tunneling Distance (cm) 5.0 -Tunneling Position #2 (O'clock) 4 -Tunneling Distance #2 (cm) 4.5 -Undermining/Tunneling Yes No -Undermining/Tunneling Starts (O'clock 12 ) -Undermining/Tunneling Ends (O'clock) 6 -Maximum Distance (cm) 1.4 -Circular Undermining No No -Wound/Ulcer Outcome Not Healed Not Healed -Ulcer Cleansing Rinsed/ Rinsed/ Irrigated with Irrigated with Saline Saline -Foul Odor after Cleansing No No -Bioengineered Tissue No No -Bleeding Controlled with Pressure Pressure -Treatment Response Procedure Procedure Tolerated Well Tolerated Well -Offloading No No -Pressure Reduction Wheelchair cushion -Debridement - Subq, 1st 20sq cm Yes -Debridement, SubQ, ea addt'l 20sq cm 1 or part thereof -Debridement - Muscle / Fascia, 1st Yes 20sq cm -Debridement, Muscle/Fascia, ea addt'l 2 20sq cm or part thereof Pain Scale: 0-10 Numeric Is Patient Pain Free? Yes Yes WC - Nurse 3 - General Ulcer D/C NN Start: 04/10/22 13:06 Freq: Status: Active Protocol: Activity Type Activity Date Activity User E-sign Co-sign Detail Recorded Client Recorded Date Recorded By Document 04/10/22 14:09 [facility] [id number] 04/10/22 14:11 BM Document 04/25/22 08:32 ML [id number] 04/25/22 08:34 ML 04/10/22 04/25/22 14:09 08:32 Wound Care Center Nurse 3 #5- R ischium -Ulcer Cleansing Rinsed/ Rinsed/ Irrigated with Irrigated with Saline Saline -Foul Odor after Cleansing No No -Primary Dressing Applied Mepilex Border -Other Dressing DAKINS MOIST daykins0.25, GAUZE DRSG PER moistened guaze DL WEAVING INSPECTOR .abd -Primary Dressing Covered/Secured with Dry Gauze, Dry Gauze, Secured with Secured with Tape Tape -Mepilex Border 1 Treatment Response Procedure Tolerated Well Pain Scale: 0-10 Numeric Is Patient Pain Free? Yes Yes WC - Visit Discharge Discharge Condition Stable Ambulatory Status Wheelchair Transportation TRANSPORT Facility Type Home Health Assessment/Plan Assessment/Plan (1) Stage II pressure ulcer of sacral region: CODE(S): L89.152 - Pressure ulcer of sacral region, stage 2 PLAN: Plan Wound bed with good granulation tissue, beefy red appearance. No debridement performed today. Surgical debridement with Dr. Messina scheduled for Thursday. Continue to pack with dakins-soaked gauze, cover with foam pad silicone-bordered dressing. Completed cipro and flagyl without issue. Discussed with patient the importance of off-loading (change position every 2 hours at minimum and avoid pressure and friction to area if possible) to prevent further injury and promote healing. He now has off-loading devices for his bed and chair. Also discussed importance of continuing to work towards smoking cessation and increasing protein within his diet to aid in healing. Following surgical debridement with Dr. Messina on Thursday, will transition wound care follow-up to Kemi Rubio CNP.
== END 2022-04-29 23:59 | disposition home or self-care (01) ==
LOC: WC 09:00
PROVIDERS: PCP Family Medicine; Referring Provider Physician Assistant; Visit Provider Physician Assistant
DX: L89.214 Pressure ulcer of right hip, stage 4 (principal); G95.89 Other specified diseases of spinal cord; F17.210 Nicotine dependence, cigarettes, uncomplicated; Z74.01 Bed confinement status
CPT/HCPCS: 11042; 11043; 11045; 11046; 99213; G0463

== ENCOUNTER 2022-04-28 15:04 | Observation (INO) | payer BC, MEDICARE, SELFPAY ==
[2022-04-28] VITALS (11 sets, daily range): BP systolic 94–139; BP diastolic 46–99; PULSE 64–90; RESP 16–18; TEMP 36.2–36.8; O2SAT 94–100; BMI 35.5
--- NOTE | 2022-04-28 | PRES_PTH ---
PATIENT: JORGE LINDSEY LOC: MS3 U#:[id number] AGE/SX: 66/M ROOM: [facility] [place] RE04/28/[address]: Dr. Popeye Messina MD : [id number] BED: 1 DIS: 04/30/2022 SPEC #: [id number] RECD: 04/28/22 16:15 STATUS: DERRELL RELatasha #: [id number] ERON: 04/28/22 00:[address]: Popeye Messina DEPT: SURGICAL PATHOLOGY RECD BY: Carlos Ball ENTERED: 04/29/22 09:13 SP TYPE: PRESS SORE OTHR DR: MD Dr. Brian Nuñez MD Tissues: A - Ischium, NOS B - Ischium, NOS Procedures: Decalcification bone/plaque Surgery Specimen Level IV HEADER OPERATION: Excision ischial pressure sore with partial ostectomy PRE-OP DIAGNOSIS: Right ischial pressure sore, stage 4; osteomyelitis of right side of pelvis TISSUE SUBMITTED: A - Debrided soft tissue ischial pressure sore, right, B - Debrided ischial bone, right MICROSCOPIC DIAGNOSIS A. Skin and soft tissue of right ischial region, excision: Ulceration with associated acute and chronic inflammation and granulation. Focal hyperkeratosis and parakeratosis. B. Ischial bone, biopsy: Chronic reparative and reactive change. No evidence of acute osteomyelitis. AM:marcia 05/02/2022 MICROSCOPIC DESCRIPTION Slides are reviewed. GROSS DESCRIPTION A - Received in fixative is one container labeled with the patient's name and designated debrided soft tissue ischial pressure sore, right. The specimen consists of a piece of skin with underlying tissue measuring 8 x 6 cm and up to 2 cm in thickness. The skin surface shows extensive ulceration. Senior Compensation Consultant sections are submitted in three cassettes. B - Received in fixative is one container labeled with the patient's name and designated debrided ischial bone, right. The specimen consists of multiple irregular fragments of bone that in aggregate measure 3.5 x 3 x 1.2 cm. The entire specimen is submitted in two cassettes after decalcification. / JOSY:marcia 04/29/2022 TC:2 CPT: 73904 x2, 50401
--- NOTE | 2022-04-28 11:44 | EKG12_ITS ---
Test Reason : PRE OP Blood Pressure : / mmHG Vent. Rate : 094 BPM Atrial Rate : 094 BPM P-R Int : 142 ms QRS Dur : 076 ms QT Int : 334 ms P-R-T Axes : 043 077 048 degrees QTc Int : 417 ms Normal sinus rhythm Nonspecific ST and T wave abnormality Abnormal ECG No previous ECGs available Confirmed by WALDO GOOD, HAL ([id number]), market editor MAMIE JUAREZ ([id number]) on 05/05/2022 12:57:32 PM Referred By: Popeye Messina Confirmed By:CHAMP HAAS MD
--- NOTE | 2022-04-28 11:46 | HP.PCM_ITS ---
History and Physical Date of Admission: 04/28/22 HISTORY OF PRESENT ILLNESS This is a 66-year-old white male who presented to the wound healing center with complaints of pressure ulcer to right buttock area with extension to the right ischial bone. This started in October,. ? Patient's was treating with OTC creams and keeping area clean.? The ulcer starting increasing in size and went to the Emergency Department on 02/08/22.? CT showed subcutaneous and deep soft tissue involvement and possible early abscess formation.? The bone was not addressed. He had a wound culture on 02/28/22.? It was positive for E. coli, Staphylococcus aureus, and Clostridium perfringens.? He was treated with Augmentin.? ? The patient has very limited mobility as a result of a prior spine injury/surgery. He utilizes a wheelchair at all times and requires a lm lift to transfer to cot here. He sits in his wheelchair almost all day, not really able to change positions. They finally obtained a low air loss overlay to their regular mattress at home.? A roho cushion was ordered for his wheelchair.? Patient is a smoker. ? Anticipate increased metabolic demands from the infection.? Encourage nutritional supplementation with protein to help the healing process. Today he denies fever.? His appetite is ok. PAST MEDICAL HISTORY Bedridden Pressure sore Right ischial pressure sore, stage 4 Smoker PAST SURGICAL HISTORY spinal surgery MEDICATIONS baclofen esomeprazole magnesium (Nexium) levothyroxine tamsulosin acetaminophen icosapent ethyl (Vascepa) ALLERGIES House dust Pollen extracts FAMILY HISTORY Noncontributory. SOCIAL HISTORY Smoking Status:? Heavy Smoker (>10/day) REVIEW OF SYSTEMS General - Denies fever, fatigue, and weight loss. Eyes - Denies cataracts and glaucoma. ENT - Denies nasal congestion and sore throat. Endocrine - Denies excessive thirst and urination. Skin - Denies suspicious lesions and skin cancer.? Has a right ischial pressure sore, Stage IV. Musculoskeletal - Denies joint pain, joint stiffness, weakness of muscles and joints, back pain, and arthritis. Neuro - Denies headaches. Cardiovascular - Denies chest pain, fatigue, and shortness of breath with exertion. Psych - Denies anxiety and depression. Respiratory - Denies chronic cough and shortness of breath.? Patient is a smoker. Gastrointestinal - Denies nausea, vomiting, diarrhea, and constipation. Hematologic - Denies abnormal bruising and bleeding. Genitourinary - Denies hematuria and urinary frequency. PHYSICAL EXAMINATION General - Alert and Oriented. HEENT - PERRL. EOMI.? Neck - Supple and nontender.? Lungs - Clear to auscultation. Heart - Regular rate and rhythm. Abdomen - Soft and nondistended. Buttocks - Right ischial pressure sore with extension down to the ischial bone, Stage IV.? Good granulation tissue present.? Very close to the anal opening, about 1.5 cm.? Wound measures 6.5 x 6.5 x 5 cm. Extremities -? No axillary adenopathy.? Radial pulses are palpable.? No inguinal adenopathy.? Dorsalis pedis pulses are palpable. Neuro - CN II-XII grossly intact. Psych - Normal mood and affect. ASSESSMENT (1) Right ischial pressure sore, stage 4 (L89.314). (2) Osteomyelitis of right side of pelvis (M86.9). (3) Bedridden (Z74.01). (4) Smoker (F17.200). PLAN Medical records reviewed.? Cultures reviewed. Labs and x-rays and CT reviewed. Will continue the Dakin's dressing changes to the right ischial pressure sore. Patient has a right ischial pressure sore that extends down to the ischial bone, Stage IV.? It is very close to the anal opening, about 1.5 cm. Recommend excision of this pressure sore along with partial ostectomy for osteomyelitis.? The excision will make the ulcer bigger.? Will try and place a VAC into the pressure sore after surgery.? It may be difficult because of the close proximity to the anal opening.? At the time of the surgery he will spend the night in the hospital with a surgical observation overnight stay.? At that time, will obtain a General Surgery evaluation for a diverting colostomy before discharge.? The colostomy can then be scheduled electively.? Because the patient is prone when I proceed with my surgery, I would have to wait at least 3 weeks to allow the stoma to mature. I suspect osteomyelitis and the need for custodial IV antibiotics through the use of a PICC line.? The patient just obtained a low air loss overlay to his mattress at home.? He needs a low air loss bed because of the severity of the pressure sore extending down to and probably involving the bone.? While in hospital, I will order a CT Pelvis to look for evidence of osteomyelitis.? Will check a Prealbumin and encourage nutritional supplementation with protein to help the healing process. He had a wound culture on 02/28/22.? It was positive for E. coli, Staphylococcus aureus, and Clostridium perfringens.? He was treated with Augmentin. After excision of the pressure sore, will need to control the infection with antibiotics, maximize his nutrition by checking a Prealbumin monthly before considering wound reconstruction with muscle flaps.? Anticipate 6-12 months.? Will schedule the surgery in the next 1-2 weeks. Patient was informed of the risks and complications of the procedure including alternatives to surgery.? These were discussed with the patient personally.? Patient voices understanding and wishes to proceed. Potential risks and complications included but not inclusive of bleeding, infection seroma, hematoma, bruising, swelling, prolonged need for drains, loss of sensation to skin, partial or complete loss of skin flap and/or nipple graft, wound breakdown, need for wound care, poor scarring, poor aesthetic outcome, int ra operative cardiac or neurologic events, DVT, PE, and reaction to anesthesia. Encouraged patient to stop smoking as it may have deleterious effects on wound healing. Assessment & Plan Assessment/Plan (1) Right ischial pressure sore, stage 4: (2) Osteomyelitis of right side of pelvis: (3) Bedridden: (4) Smoker:
[2022-04-28] MEDS: Lactated Ringers 1,000 ML 15 ML IV (12:19)
[2022-04-28 13:06] LABS: Thyroid Stim Hormone (TSH) 0.63 uIU/mL (0.358-3.74)
[2022-04-28] MEDS: Lactated Ringers 1,000 ML 60 ML IV ×4 (14:01→20:42)
[2022-04-28] MEDS: Lidocaine 1% /Epi 1:100 (20ml) 20 ML Vial (14:10)
--- NOTE | 2022-04-28 14:51 | OP.PCM_ITS ---
Problems Associated Problem List Diagnoses (1) Right ischial pressure sore, stage 4: (2) Osteomyelitis of right side of pelvis: (3) Bedridden: (4) Smoker: Report of Operation Date of Procedure: 04/28/22 Pre-Operative Diagnosis: (1) Right ischial pressure sore, stage 4 (L89.314). (2) Osteomyelitis of right side of pelvis (M86.9). (3) Bedridden (Z74.01). (4) Smoker (F17.200). Post-Operative Diagnosis: Same. Surgery/Procedure Performed:: Excision right ischial pressure sore, Stage IV, with partial ostectomy for osteomyelitis. Description of Surgical Findings:: This is a 66-year-old white male who presented to the wound healing center with complaints of pressure ulcer to right buttock area with extension to the right ischial bone. This started in October,. ? Patient's was treating with OTC creams and keeping area clean.? The ulcer starting increasing in size and went to the Emergency Department on 02/08/22.? CT showed subcutaneous and deep soft tissue involvement and possible early abscess formation.? The bone was not addressed. He had a wound culture on 02/28/22.? It was positive for E. coli, Staphylococcus aureus, and Clostridium perfringens.? He was treated with Augmentin.? ? The patient has very limited mobility as a result of a prior spine injury/surgery. He utilizes a wheelchair at all times and requires a lm lift to transfer to cot here. He sits in his wheelchair almost all day, not really able to change positions. They finally obtained a low air loss overlay to their regular mattress at home.? A roho cushion was ordered for his wheelchair.? Patient is a smoker. ? Anticipate increased metabolic demands from the infection.? Encourage nutritional supplementation with protein to help the healing process. Patient was informed of the risks and complications of the procedure including alternatives to surgery. These were discussed with the patient personally. Patient voices understanding and wishes to proceed. Potential risks and complications included but not inclusive of bleeding, infection, hematoma, bruising, swelling, need for wound care, poor scarring, poor aesthetic outcome, intra operative cardiac or neurologic events, DVT, PE, and reaction to anesthesia. Encouraged patient to stop smoking as it may have deleterious effects on wound healing. Size of right ischial wound - 8 x 7 x 4.5 cm. Surgeon: Popeye Messina MD Type of Anesthesia: General Anesthesiologist: Andi Alva MD and Quan Wilkinson CRNA Specimen's removed: 1. Right ischial pressure sore soft tissue to Pathology and Microbiology. 2. Right ischial pressure sore bone to Pathology and Microbiology. Drains: None. Estimated Blood Loss (mL): 150. Description of Procedure: Patient was taken to OR in supine position and was placed under general anesthesia. He was then placed in the prone position. The right ischial and buttock area was prepped and draped in the usual fashion. SCD's were placed for DVT prophylaxis. Perioperative antibiotics were given intravenously. Using xylocaine with epinephrine, the right ischial pressure sore was infiltrated. After waiting 5 minutes for the anesthetic to take effect, I made an incision around the pressure sore into the subcutaneous tissue and through the muscle to the ischial bone. No pus was seen. The soft tissue including muscle and some fat necrosis was excised. Using rongeurs, I proceeded with a partial ostectomy of the ischial bone. I took several sales and merchandising representative pieces of bone at the base of the pressure sore. A rasp was used to help smooth out the bony edges. Hemostasis was obtained with electrocautery. The wound was irrigated with saline. The dimensions of the wound after excision of the right ischial pressure sore with partial ostectomy for osteomyelitis was 8 x 7 x 4.5 cm or 56 cm2. Half the soft tissue and half the bone was sent to Pathology for analysis to rule out carcinoma and to evaluate for osteomyelitis. Half the soft tissue and half the bone was sent to Microbiology for culture. A positive culture will necessitate antibiotic therapy. The wound was dressed with Mepitel nonadherent dressing followed by Kerlix gauze and Betadine. This was followed with a dry K erlix gauze and ABD pads compression dressing. Patient tolerated the procedure well and was sent to PACU in satisfactory condition. While there, he had a bowel movement that got on the outer operative dressing. The outer dry dressing was changed. Due to this contamination, will proceed with an evaluation by General Surgery for a diverting colostomy. Patient will be sent upstairs for continued postop care. Will try and place the VAC tomorrow. If it is difficult to maintain a seal due to its proximity to the anal opening, then will continue with Dakin's dressing changes daily. After discharge will followup at the Wound Center. Grafts/Implants Used: None. Procedure Start Time: 14:10 Procedure Stop Time: 14:50 Complications None. Admit VTE Documentation VTE Present on Admission: No VTE Mechan Device Prophylaxis: SCD's VTE Pharm Prophylaxis ordered?: Yes Addendum Addendum: Surgery Charges CPT - 85205 ICD-10 - L89.314, M86.9, Z74.01, F17.200
--- NOTE | 2022-04-28 16:21 | SUR.PHASEI ---
ARRIVED TO PACU AT APPROXIMATELY 1510. PATIENT HAD BEEN INCONTINENT OF LARGE AMOUNT OF FORMED BROWN STOOL. SOME OF THE STOOL HAD SEEPED UNDER THE NEW OR DRESSING. ATTEMPTS WERE MADE TO CLEAN THE PATIENT'S PERINEUM. DR WHITAKER WAS CALLED AND ASKED HOW TO BEST CHANGE THE RIGHT BUTTOCK DRESSING. JAYSON MCCLAIN WAS CALLED AND THE RIGHT BUTTOCK DRESSING AND INCONTINENCE SITUATION WAS DISCUSSED. THE RIGHT BUTTOCK ABD LAYER AND DRY GUAZE LAYER OF THE DRESSING WERE REMOVE AND REPLACED WITH CLEAN, DRY, STERILE DRESSINGS AND RETAPED DIRECTED BY DR WHITAKER.
[2022-04-28] MEDS: Juven (unflavored) Packet 1 PACKET PO (18:48)
[2022-04-28] MEDS: Acetaminophen 500 MG Tablet 1000 MG PO (18:48)
[2022-04-28] MEDS: Baclofen 10 MG Tablet 15 MG PO (20:40)
[2022-04-28] MEDS: Tamsulosin HCl 0.4 MG Capsule PO (20:40)
[2022-04-29 02:23] VITALS: BP 103/68; PULSE 67; RESP 16; TEMP 36.6; O2SAT 94
[2022-04-29] MEDS: Baclofen 10 MG Tablet 15 MG PO ×3 (05:25→20:05)
[2022-04-29] MEDS: Levothyroxine 125 MCG Tablet PO (05:25)
[2022-04-29 05:32] VITALS: BP 113/65; PULSE 64; RESP 16; TEMP 36.6; O2SAT 95
[2022-04-29 06:46] LABS: Hematocrit 37.6 % (40-54); Hemoglobin 11.9 g/dL (13.0-16.5); Mean Corp Hgb Conc 31.6 g/dL (32-36); Mean Corpuscular Hgb 27.2 pg (27.0-32.0); Mean Corpuscular Volume 85.8 fL (80-94); Mean Platelet Vol. 9.5 fl (6.2-12.0); Platelet Count 352 K/mm3 (150-450); RBC Distribution Width CV 17.6 % (11.6-14.6); RBC Distribution Width SD 55.2 fl (35.1-43.9); Red Blood Count 4.38 M/mm3 (4.6-6.2); White Blood Count 6.2 K/mm3 (4.4-11.0)
[2022-04-29 07:30] VITALS: O2SAT 98
[2022-04-29 07:40] LABS: Anion Gap 6 (5-15); BUN 8 mg/dL (7-18); BUN/Creat Ratio 18.1 RATIO (10-20); Calcium,Total 8.8 mg/dL (8.5-10.1); Chloride 102 mmol/L (98-107); Creatinine, Serum 0.44 mg/dL (0.70-1.30); EST Glomerular Filtration Rate 204 mL/min (>60); Est Glom Filt Rate - Afr Amer 247 mL/min (>60); Estimated Creatinine Clearance 151.04 ml/min; Glucose 89 mg/dL (74-106); Potassium 4.3 mmol/L (3.5-5.1); Prealbumin 13.4 mg/dL (20.0-40.0); Sodium Level 137 mmol/L (136-145)
[2022-04-29] MEDS: Enoxaparin 40 MG/0.4 ML Syringe SC (07:49)
[2022-04-29] MEDS: Juven (unflavored) Packet 1 PACKET PO ×2 (07:49→17:34)
[2022-04-29] MEDS: Tamsulosin HCl 0.4 MG Capsule PO ×2 (07:49→20:06)
[2022-04-29] MEDS: Acetaminophen 500 MG Tablet 1000 MG PO (08:13)
[2022-04-29 08:49] VITALS: BP 116/71; PULSE 72; RESP 18; TEMP 36.8; O2SAT 96
[2022-04-29] MEDS: oxyCODONE 5 MG Tablet 10 MG PO ×2 (09:23→20:04)
--- NOTE | 2022-04-29 09:47 | CASEMGMT ---
JAZZY PAVON Assessment: Face to Face with pt for initial transition planning/care coordination assessment. JAZZY PAVON introduced self and role at [facility], pt voices understanding and consents to assessment. Pt is A/O x4 and answers all questions appropriately at this time. Pt lying in bed in no distress. Care providers, pharmacy, and demographics verified/updated. Admitting Dx: exc R ischial pressure sore partial ostectomy PCP:Erasmo Specialists:AASHISH Messina Pharmacy: [facility] Insurance: SHANNAN Gotti Prescription Benefit: Pt is not sure if he has rx coverage. LNOK: Kassandra Covington, Living Arrangements: Pt lives with in a single story home with a ramp to enter. Pt reports he is w/c bound and his assists with bathing and dressing. Pt denies concerns at home. Transportation: Pt currently is hiring transportation from [place]. States he has a w/c accessible van but it is not in working condition. DME/HHC/SNF: Pt reports he has a wound vac at home from [facility], w/c, hospital bed and lm lift. Pt reports he is current with [facility] SN. Verified with Katalina at [facility]. Pt states he has been to a SNF in [place] but does not know which one. Pt states no concerns with going home at time of dc. He states his still works but she does dressing changes when [facility] is not there. Pt states no further concerns/needs. CM to follow. Advised pt to ask CM if any further question/concerns/needs arise, voices understanding. Pt Goal: Home with [facility] Plan: Home with [facility]
[2022-04-29] MEDS: DAKIN'S SOL HALF STRENGTH (=0.25%) 1 APPLIC TOPICAL (11:30)
[2022-04-29] MEDS: Lactated Ringers 1,000 ML 60 ML IV (11:35)
--- NOTE | 2022-04-29 11:41 | WOUNDNOTE ---
wound photo: right ischium
[2022-04-29 14:13] VITALS: BP 105/60; PULSE 79; RESP 18; TEMP 36.7; O2SAT 94
--- NOTE | 2022-04-29 14:15 | EX.PCM.CON.S ---
Assessment & Plan Assessment/Plan (1) Right ischial pressure sore, stage 4: PLAN: This is a 66-year-old male with a right stage IV ischial pressure ulcer now status postdebridement with plastic surgery. Ulcer has exhibited cultures positive for enteric pathogens?including E. coli and Clostridium species in the past. General surgery is asked to consider patient for possible diverting colostomy to help control the fecal stream and improve patient's chances of healing. I find this as a reasonable request, but agree with plastic surgery that this should be managed based on an elective schedule. Further, patient has had nutritional labs obtained by plastic surgery and these labs suggest significant malnutrition (prealbumin less than 14). I would like to follow-up with patient as an outpatient and have encouraged improving nutrition in the interim. We will also tentatively arrange for an operative date for laparoscopic colostomy and plan to proceed unless a prohibitive clinical change develops. HPI Consult Data Date of Consult: 04/29/22 HPI Narrative Reason for Consultation: Diverting colostomy HPI Narrative: JORGE LINDSEY, is a 66 M who is admitted to plastic surgery for care related to a stage IV right ischial ulcer that required debridement yesterday. General surgery was consulted to consider possible diverting colostomy procedure. Patient confirms EMR that this issue began in October 2021. He has had repeated evaluation through the ER and the wound care center with some positive past cultures for E. coli, staph, and Clostridium. He also confirms that he is either in his wheelchair or bed ridden after a spinal surgery left him with very little function of his lower extremities. He denies any prior abdominal surgery. [facility] Medical History (Updated 04/25/22 @ 14:18 by Leatha Rice) Arthritis Bedridden COPD (chronic obstructive pulmonary disease) Gastric reflux High cholesterol Hx of fracture of arm Hx of head injury Pressure sore Right ischial pressure sore, stage 4 Smoker Thyroid disease Uses wheelchair Wears glasses Home Medications baclofen 10 mg tablet 15 mg PO TID spasm 12/17/17 [History Last Taken 04/28/22 06:30] levothyroxine 125 mcg tablet 125 mcg PO DAILY 12/17/17 [History Last Taken 04/28/22 06:30] tamsulosin 0.4 mg capsule 0.4 mg PO BID 12/17/17 [History Last Taken 04/27/22 22:00] icosapent ethyl 1 gram capsule (Vascepa) 2 g PO BID cholesterol 02/08/22 [History Last Taken 04/27/22 22:00] acetaminophen 650 mg tablet,extended release 1,300 mg PO Q8H PRN Pain 04/25/22 [History Last Taken Unknown] Allergy/AdvReac Type Severity Reaction Status Date / Time Environmental Allergies: Allergy NEEDS Verified 04/28/22 12:20 Uncoded FOLLOW-UP [dust] house dust Allergy Other Verified 04/28/22 12:20 pollen extracts Allergy NEEDS Verified 04/28/22 12:20 FOLLOW-UP Surgical History (Updated 04/25/22 @ 14:18 by Leatha Rice) History of back surgery Hx of neck surgery Hx of spinal surgery Social History Smoking Status: Light Smoker (<10/day) Physical Exam Const alert and no apparent distress Nutritional Appearance: overweight GI GI Narrative: Patient with a hypertrophic infraumbilical scar?consistent with prior umbilical hernia repair which patient endorses when directly questioned. There is also a scar more superiorly and is almost a perfect sphere in shape. Patient's abdomen is nondistended, soft, and nontender to palpation x4 quadrants Extremity Extremity Narrative: Patient suffers from contractures of his lower extremities and there is a clean abdominal pad over his right ischial wound. Lab / Micro Data Result Diagrams: 04/29/22 05:46 04/29/22 05:46 Labs: Laboratory Results - last 24 hr 04/29/22 05:46: WBC 6.2, RBC 4.38 L, Hgb 11.9 L, Hct 37.6 L, MCV 85.8, MCH 27.2, MCHC 31.6 L, RDW Std Deviation 55.2 H, RDW Coeff of Josue 17.6 H, Plt Count 352, MPV 9.5 04/29/22 05:46: Sodium 137, Potassium 4.3, Chloride 102, Carbon Dioxide 29.0, Anion Gap 6, BUN 8, Creatinine 0.44 L, Estim Creat Clear Calc 151.04, Est GFR (MDRD) Af Amer 247, Est GFR (MDRD) Non-Af 204, BUN/Creatinine Ratio 18.1, Glucose 89, Calcium 8.8, Prealbumin 13.4 L Micro: Microbiology 04/28/22 14:36 Bone - Ischial Bone Gram Stain - Final 04/28/22 14:36 Bone - Ischial Bone Wound Culture - Preliminary Gram positive organism 04/28/22 14:33 Tissue - Ischial Pressure Sore Gram Stain - Final 04/28/22 14:33 Tissue - Ischial Pressure Sore Wound Culture - Preliminary Staphylococcus species Gram positive edward Charges/Coding Visit Charges Inpatient E&M: 91073 Init Hosp L2
--- NOTE | 2022-04-29 15:00 | CASEMGMT ---
JAZZY CM in to discuss URIBE form with patient. RN CM explained URIBE form, patient voiced understanding. Pt signed form and filed in chart. Pt provided with a copy of signed URIBE form. Patient had no further questions or concerns at this time.
--- NOTE | 2022-04-29 17:13 | PCM.PN.SRG ---
Subjective Subjective Postop #1 Patient states pain is controlled. Objective Data Objective Data Vital Signs: Vital Signs Temp Pulse Resp BP Pulse Ox O2 Del Method 98.1 F 79 18 105/60 94 Room Air 04/29/22 14:13 04/29/22 14:13 04/29/22 14:13 04/29/22 14:13 04/29/22 14:13 04/29/22 14:14 Oxygen Delivery Method Room Air Weight: 219 lb 15.988 oz Body Mass Index (BMI) 35.5 Intake & Output: Intake and Output for Last 24 Hours 04/27/22 04/28/22 04/29/22 23:59 23:59 23:59 Intake Total 1625 / 1625 1186 / 1186 Output Total 300 / 300 1000 / 1000 Balance 1325 / 1325 186 / 186 Lab / Micro Data Result Diagrams: 04/29/22 05:46 04/29/22 05:46 Labs: Laboratory Results - last 24 hr 04/29/22 05:46: WBC 6.2, RBC 4.38 L, Hgb 11.9 L, Hct 37.6 L, MCV 85.8, MCH 27.2, MCHC 31.6 L, RDW Std Deviation 55.2 H, RDW Coeff of Josue 17.6 H, Plt Count 352, MPV 9.5 04/29/22 05:46: Sodium 137, Potassium 4.3, Chloride 102, Carbon Dioxide 29.0, Anion Gap 6, BUN 8, Creatinine 0.44 L, Estim Creat Clear Calc 151.04, Est GFR (MDRD) Af Amer 247, Est GFR (MDRD) Non-Af 204, BUN/Creatinine Ratio 18.1, Glucose 89, Calcium 8.8, Prealbumin 13.4 L Micro: Microbiology 04/28/22 14:36 Bone - Ischial Bone Gram Stain - Final 04/28/22 14:36 Bone - Ischial Bone Wound Culture - Preliminary Gram positive organism 04/28/22 14:33 Tissue - Ischial Pressure Sore Gram Stain - Final 04/28/22 14:33 Tissue - Ischial Pressure Sore Wound Culture - Preliminary Staphylococcus species Gram positive edward Physical Exam Const alert General Appearance: cooperative Orientation / Consciousness: awake HEENT normocephalic Resp normal air movement Cardio regular rate Skin Wound Narrative: Right ischial ulcer is stable with no active bleeding. Neuro oriented x3 Sensorium / Orientation: awake and alert Psych mental status grossly normal Assessment & Plan Assessment/Plan (1) Right ischial pressure sore, stage 4: (2) Osteomyelitis of right side of pelvis: (3) Tobacco abuse: (4) Bedridden: (5) Spinal cord injury: PLAN: Plan Patient states pain is well controlled. Preliminary operative culture positive for Gram positive organism. Continue Unasyn IV. Hgb 11.9 today. Prealbumin 13.4. Encourage protein intake with supplementation with Edgar/Ensure. Ulcer is stable. No active bleeding. Will need to be carefull to keep the area clean from stool. Dressing changes will be Dakins 0.25% moistened gauze covered by ABD/super absorber daily and as needed. Dr. Romero consulted for colostomy placement which will be done electively at a later time. He will need transportation home tomorrow. He will follow up next week at the wound center to see me either next Thursday or Thursday morning. Transportation will have to be arranged for that visit also. Charges/Coding Procedures Integumentary [id number]: [id number] Global Visit
[2022-04-29 21:33] VITALS: BP 121/65; PULSE 77; RESP 16; TEMP 36.6; O2SAT 94
[2022-04-30 02:06] VITALS: BP 120/65; PULSE 74; RESP 16; TEMP 36.9; O2SAT 94
[2022-04-30] MEDS: oxyCODONE 5 MG Tablet 10 MG PO ×2 (03:16→19:55)
[2022-04-30] MEDS: Lactated Ringers 1,000 ML 60 ML IV (05:06)
[2022-04-30] MEDS: Baclofen 10 MG Tablet 15 MG PO ×3 (05:06→19:54)
[2022-04-30] MEDS: Levothyroxine 125 MCG Tablet PO (05:07)
[2022-04-30 08:00] VITALS: BP 103/55; PULSE 80; RESP 16; TEMP 36.8; O2SAT 91
[2022-04-30] MEDS: Juven (unflavored) Packet 1 PACKET PO ×2 (09:03→19:58)
[2022-04-30] MEDS: Enoxaparin 40 MG/0.4 ML Syringe SC (09:03)
[2022-04-30] MEDS: Tamsulosin HCl 0.4 MG Capsule PO ×2 (09:03→19:55)
[2022-04-30] MEDS: DAKIN'S SOL HALF STRENGTH (=0.25%) 1 APPLIC TOPICAL (09:03)
[2022-04-30 11:06] VITALS: RESP 18
[2022-04-30 12:12] VITALS: BP 112/65; PULSE 80; RESP 16; TEMP 36.6; O2SAT 92
--- NOTE | 2022-04-30 14:31 | DCINST_ITS ---
Discharge Instructions Diet Discharge Diet: No restrictions (High protein diet) Activity Discharge Activity: Return to Normal Activity May resume sexual activity in: No Restrictions Dressing / Incision Call your doctor if your incision/area has: Continuous Slow Oozing, Sudden Increased Bleeding, Increased Pain/ Swelling, Increased Redness, Foul Smelling Discharge and Swelling at the incision site Call your doctor if you observe: Fever of 101 or Higher, Inability to have a bowel movement, Shortness of breath, Chest pain, Calf discomfort and Uncontrolled pain Change Dressing in: 1 day Cleanse incision/area with: Soap & Water Additional Dressing/Incision Instructions:: Dakins 0.25% moistened gauze cov ered with ABD/super absorber daily and as needed. Follow Up Care Please Follow Up With: Kemi Rubio NP, ASSEMBLER [employer] BAR [employer] SEGMENT-C When: Next week at the wound healing center. Call [phone] Test Results: Test results from this visit will be discussed in further detail at your follow- up appointment, if applicable. Discharge Plan Admission Admit Date/Time: 04/28/22 15:04 Attending Provider: Popeye Messina Primary Care Provider: Brian Zimmerman Consulting Providers: Moustapha Romero Discharge Orders/Prescriptions Prescriptions: New HySept 0.25 % Solution 1 applic topical DAILY 30 Days Qty: 400 1RF Protocol: *Topical Application Instructions APPLICATION INSTRUCTIONS: right ischial wound Edgar (with collagen) 7-7-1.5 gram Powder In Packet 1 packet PO BIDCM 30 Days Qty: 60 2RF doxycycline monohydrate 100 mg tablet 100 mg PO BID 14 Days Qty: 28 1RF oxycodone-acetaminophen [Percocet] 5-325 mg tablet 1 tab PO 4X/DAY PRN (Reason: pain (scale score 7-10)) 7 Days Qty: 28 0RF Continued tamsulosin 0.4 MG capsule 0.4 mg PO BID baclofen 10 MG tablet 15 mg PO TID levothyroxine 125 MCG tablet 125 mcg PO DAILY icosapent ethyl [Vascepa] 1 gram Capsule 2 g PO BID acetaminophen 650 mg Tablet Extended Release 1,300 mg PO Q8H PRN (Reason: Pain) Referrals / Follow Up: Brian Zimmerman MD [Primary Care Provider] - Disposition Disposition (needs filled in before D/C Order can be placed): Home Health Service
[2022-04-30 14:49] VITALS: RESP 18
--- NOTE | 2022-04-30 14:53 | CASEMGMT ---
Addendum entered by Cherie Cornell 04/30/22 15:06: Nurse made RN CM aware that pt reports pt PCP is in [place] now. TC to office, states he has moved to [facility] in [place] with a phone number of [phone]. Nurse aware and updated pt home instructions. Original Note: Updated Katalina at [facility] that pt will dc today without vac and pt will follow up as outpt for diverting colostomy. Denies need for petra order d/t pt being in obs. Sign Writer Hand is setting up transportation home.
--- NOTE | 2022-04-30 15:08 | NURSING ---
spoke w/ , reviewed d/c orders and meds/next dose due and meds to youth support worker at pharmacy-also gave pt info to contact his dr at [place] address & phone #/dr linares
--- NOTE | 2022-04-30 22:12 | DS.PCM_ITS ---
Providers Date of Admission: 04/28/22 Date of Discharge: 04/30/22 Primary Care Physician: Dr. Brian Zimmerman MD Consultations 04/28/22 16:51 Consult: General Surgery Routine Consulting Provider: Moustapha Romero Reason for Consult: right ischial pressure sore. has need for diverting colostomy. EMERGENT Consult: No MD Notified: Yes Date Notified: 04/28/22 Time Notified: 16:40 Method of Notification: Verbal Method of Consult:: In-Person 04/29/22 06:21 Consult: Onc/Wound/planting supervisor Routine Comment: Reason for Consult:: ischial wound Reason For Visit: EXC RT ISCHIAL PRESSURE SORE PARTIAL OSTECTOMY Diagnosis Discharge Diagnosis (1) Right ischial pressure sore, stage 4: Status: Chronic Code(s): L89.314 - Pressure ulcer of right buttock, stage 4 (2) Osteomyelitis of right side of pelvis: Status: Acute Code(s): M86.9 - Osteomyelitis, unspecified (3) Bedridden: Status: Chronic Code(s): Z74.01 - Bed confinement status (4) Spinal cord injury: Status: Acute (5) Smoker: Status: Chronic Code(s): F17.200 - Nicotine dependence, unspecified, uncomplicated Medications at Discharge Home Medications baclofen 10 mg tablet 15 mg PO TID spasm 12/17/17 levothyroxine 125 mcg tablet 125 mcg PO DAILY 12/17/17 tamsulosin 0.4 mg capsule 0.4 mg PO BID 12/17/17 icosapent ethyl 1 gram capsule (Vascepa) 2 g PO BID cholesterol 02/08/22 acetaminophen 650 mg tablet,extended release 1,300 mg PO Q8H PRN Pain 04/25/22 arginine 7 gram-glutam 7 gram-CaHMB 1.5 [id number]-min oral pwd pkt (Edgar (with collagen)) 1 packet PO BIDCM 30 days #60 ea 04/30/22 oxycodone-acetaminophen 5 mg-325 mg tablet (Percocet) 1 tab PO 4X/DAY PRN pain (scale score 7-10) 7 days #28 tabs 04/30/22 sodium hypochlorite 0.25 % solution (HySept) 1 applic topical DAILY 30 days #400 mL 04/30/22 amoxicillin 500 mg-potassium clavulanate 125 mg tablet (Augmentin) 1 tab PO TID #63 tabs 05/01/22 Hospital Course Operations - (04/28/22 - Excision right ischial pressure sore, Stage IV, with partial ostectomy for osteomyelitis.) Procedures None Summary of Care Provided Minutes Spent on Discharge: 35 Hospital Course: This is a 66-year-old white male who presented to the wound healing center with complaints of pressure ulcer to right buttock area with extension to the right ischial bone. This started in October,. ? Patient's was treating with OTC creams and keeping area clean.? The ulcer starting increasing in size and went to the Emergency Department on 02/08/22.? CT showed subcutaneous and deep soft tissue involvement and possible early abscess formation.? The bone was not addressed. He had a wound culture on 02/28/22.? It was positive for E. coli, Staphylococcus aureus, and Clostridium perfringens.? He was treated with Augmentin.? ? The patient has very limited mobility as a result of a prior spine injury/surgery. He utilizes a wheelchair at all times and requires a lm lift to transfer to cot here. He sits in his wheelchair almost all day, not really able to change positions. They finally obtained a low air loss overlay to their regular mattress at home.? A roho cushion was ordered for his wheelchair.? Patient is a smoker. ? Anticipate increased metabolic demands from the infection.? Encourage nutritional supplementation with protein to help the healing process. On 04/28/22, he was taken to the operating room where he underwent excision right ischial pressure sore, Stage IV, with partial ostectomy for osteomyelitis. He tolerated the procedure well. In PACU, he had a stool accident, and the outer dressing was changed. The family had stated that these stool accidents are common. Since the wound extends very close to the anal opening, a General Surgery evaluation was obtained for a diverting colostomy. The patient will be scheduled as an outpatient in the near future for a diverting colostomy, but first the surgeon would like to see his nutrition better maximized as his Prealbumin is 13.4. He would like it in the 15-20 range. His postop Hgb was 11.9. The following day, the wound nurse could not get a good seal with the VAC. So Dakin's dressing changes were started. There were transportation issues on the first postop day, so he stayed one more night and was discharged home on the second postop day in satisfactory condition. The operative cultures at the time of discharge showed Staphylococcus aureus and Gram positive edward in the soft tissue and Staphylococcus aureus and Gram positive organism in the bone. When the sensitivities are available, antibiotic modification may be necessary. The Pathology was pending at the time of discharge. Comparing his preop culture with his operative culture thus far, will send him home with Augmentin. Also wrote scripts for Percocet for pain (28 tabs). Condition upon discharge is good. Continue Dakin's dressing changes daily. Followup Wound Center one week. Encouraged patient to stop smoking as it may have deleterious effects on wound healing. Physical Exam Narrative General - Alert and Oriented HEENT - PERRL. EOMI. Neck - Supple and nontender. Abdomen - Soft and nondistended. Right ischial area - Wound is stable. No active bleeding noted. Tolerated the Dakin's dressing change. Neuro - CN II-XII grossly intact. Psych - Normal mood and affect. Weight / BMI Weight Weight: 219 lb 15.988 oz Body Mass Index (BMI) 35.5 ABG / Lab / Microbiology Data Attestation: I reviewed the patient's lab results. Result Diagrams: 04/29/22 05:46 04/29/22 05:46 Microbiology: Microbiology 04/28/22 14:33 Tissue - Ischial Pressure Sore Gram Stain - Final 04/28/22 14:33 Tissue - Ischial Pressure Sore Wound Culture - Preliminary Staphylococcus aureus Gram positive edward 04/28/22 14:33 Tissue - Ischial Pressure Sore Anaerobic Culture - Preliminary 04/28/22 14:36 Bone - Ischial Bone Gram Stain - Final 04/28/22 14:36 Bone - Ischial Bone Wound Culture - Preliminary Staphylococcus aureus Pathology - pending. D/C Instructions Discharge Diet: No restrictions (High protein diet) May resume sexual activity in: No Restrictions Call your doctor if your incision/area has: Continuous Slow Oozing, Sudden Increased Bleeding, Increased Pain/ Swelling, Increased Redness, Foul Smelling Discharge and Swelling at the incision site Call your doctor if you observe: Fever of 101 or Higher, Inability to have a bowel movement, Shortness of breath, Chest pain, Calf discomfort and Uncontrolled pain Cleanse incision/area with: Soap & Water Additional Dressing/Incision Instructions: Dakins 0.25% moistened gauze covered with ABD/super absorber daily and as needed. Please Follow Up With: Kemi Rubio NP, [employer]STRUCTION WORKER[employer]C When: Next week at the wound healing center. Call [phone] Meaningful Use Info Meaningful Use Diagnoses (Choose all that apply): None applicable Discharge Plan Admission Admit Date/Time: 04/28/22 15:04 Primary Reason for Your Visit: excision right ischial pressure sore, Stage IV. Attending Provider: Popeye Messina Primary Care Provider: Brian Zimmerman Consulting Providers: Moustapha Romero Discharge Orders/Prescriptions Prescriptions: New HySept 0.25 % Solution 1 applic topical DAILY 30 Days Qty: 400 1RF Protocol: *Topical Application Instructions APPLICATION INSTRUCTIONS: right ischial wound Edgar (with collagen) 7-7-1.5 gram Powder In Packet 1 packet PO BIDCM 30 Days Qty: 60 2RF oxycodone-acetaminophen [Percocet] 5-325 mg tablet 1 tab PO 4X/DAY PRN (Reason: pain (scale score 7-10)) 7 Days Qty: 28 0RF Continued tamsulosin 0.4 MG capsule 0.4 mg PO BID baclofen 10 MG tablet 15 mg PO TID levothyroxine 125 MCG tablet 125 mcg PO DAILY icosapent ethyl [Vascepa] 1 gram Capsule 2 g PO BID acetaminophen 650 mg Tablet Extended Release 1,300 mg PO Q8H PRN (Reason: Pain) No Action amoxicillin-pot clavulanate [Augmentin] 500-125 mg tablet 1 tab PO TID Qty: 63 1RF Referrals / Follow Up: Popeye Messina MD [Med Staff - Active Staff] - (followup at Wound Center in a week to see ARIADNA HilarioC.) Brian Zimmerman MD [Primary Care Provider] - Disposition Disposition (needs filled in before D/C Order can be placed): Home Health Service
== END 2022-04-30 21:05 | disposition home health service (06) ==
LOC: MS3 04-29 09:35 → SDC 04-29 10:33 → MS3 04-29 10:33
PROVIDERS: Anesthesiology; Admitting Provider Surgery; PCP Family Medicine; Referring Provider Surgery; Visit Provider Surgery
PROC: (CPT 15946; principal; 2022-04-28 13:00)
DX: L89.214 Pressure ulcer of right hip, stage 4 (principal); L89.314 Pressure ulcer of right buttock, stage 4; M86.8X8 Other osteomyelitis, other site; J44.9 Chronic obstructive pulmonary disease, unspecified; E78.00 Pure hypercholesterolemia, unspecified; Z74.01 Bed confinement status; F17.200 Nicotine dependence, unspecified, uncomplicated; E07.9 Disorder of thyroid, unspecified; Z79.899 Other long term (current) drug therapy; Z79.890 Hormone replacement therapy
CPT/HCPCS: 15946; 01120; 36415; 80048; 84134; 84443; 85027; 87070; 87075; 87077; 87102; 87176; 87186; 87205; 87206; 88305; 88311; 93005; 94668; 96365; 96366; 96372; 97802; 99221; 99252; J7120; G0378; G0463; J0295; J2405

== ENCOUNTER 2022-05-02 11:58 | Emergency (ER) | payer BC, MEDICARE, SELFPAY ==
[2022-05-02 12:00] VITALS: BP 106/53; PULSE 89; RESP 18; TEMP 36.9; O2SAT 93; BMI 29.6
[2022-05-02 12:04] VITALS: BP 106/53; PULSE 84; RESP 18; TEMP 36.8; O2SAT 93
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
[2022-05-02 12:41] VITALS: BP 117/68; PULSE 88; RESP 18; O2SAT 98
[2022-05-02 12:48] LABS: Absolute Lymphocyte Count 1.72 X10^3/uL (0.83-4.51); Absolute Neutrophil Count 7.8 X10^3/uL (2.0-7.7); Basophil# 0.07 X10^3/uL; Basophil% 0.6 % (0-1); Eosinophil# 0.25 X10^3/uL; Eosinophils% 2.3 % (0-5); Hematocrit 41.3 % (40-54); Hemoglobin 13.3 g/dL (13.0-16.5); Lymphocyte # 1.72 X10^3/ul (0.83-4.51); Lymphocyte % 15.5 % (19-41); Mean Corp Hgb Conc 32.2 g/dL (32-36); Mean Corpuscular Hgb 27.4 pg (27.0-32.0); Mean Platelet Vol. 9.7 fl (6.2-12.0); Monocyte% 10.8 % (0-10); NRBC Flagged by Analyzer 0 % (0-5); Neutrophil # 7.75 X10^3/uL (2.7-7.7); Neutrophil % 69.8 % (47-70); Platelet Count 375 K/mm3 (150-450); RBC Distribution Width CV 17.6 % (11.6-14.6); RBC Distribution Width SD 53.9 fl (35.1-43.9); Red Blood Count 4.86 M/mm3 (4.6-6.2); White Blood Count 11.1 K/mm3 (4.4-11.0)
[2022-05-02] MEDS: 0.9% Normal Saline 1,000 ML 1000 ML IV (12:48)
[2022-05-02] MEDS: fentaNYL 100 MCG/2 ML Ampul 50 MCG IV (12:48)
[2022-05-02 13:00] LABS: Anion Gap 7 (5-15); BUN 15 mg/dL (7-18); BUN/Creat Ratio 22.5 RATIO (10-20); Calcium,Total 9.5 mg/dL (8.5-10.1); Chloride 99 mmol/L (98-107); Creatinine, Serum 0.67 mg/dL (0.70-1.30); EST Glomerular Filtration Rate 127 mL/min (>60); Est Glom Filt Rate - Afr Amer 153 mL/min (>60); Estimated Creatinine Clearance 99.19 ml/min; Glucose 115 mg/dL (74-106); Potassium 4.2 mmol/L (3.5-5.1); Sodium Level 134 mmol/L (136-145)
--- NOTE | 2022-05-02 14:57 | ED.RN ---
[facility] [place] [id number]
[2022-05-02 15:16] VITALS: BP 125/67; PULSE 80; RESP 16; O2SAT 95
== END 2022-05-02 16:20 | disposition home or self-care (01) ==
PROVIDERS: Emergency Provider Emergency Medicine; PCP Family Medicine; Visit Provider Emergency Medicine
DX: L89.314 Pressure ulcer of right buttock, stage 4 (principal); G82.20 Paraplegia, unspecified; M86.9 Osteomyelitis, unspecified; S09.90XA Unspecified injury of head, initial encounter; F17.200 Nicotine dependence, unspecified, uncomplicated; W19.XXXA Unspecified fall, initial encounter
CPT/HCPCS: 70450; 72125; 72193; 80048; 85025; 96361; 96374; 99285; J7030; Q9967; A4216

== ENCOUNTER 2022-05-26 09:00 | Outpatient (RCR) | payer BC, MEDICARE, SELFPAY ==
[2022-04-30 00:20] VITALS: BP 100/42; PULSE 88; RESP 16; TEMP 35.9; BMI 35.5
[2022-05-05 10:54] VITALS: BP 146/86; PULSE 98; RESP 16; TEMP 36.2; BMI 35.5
--- NOTE | 2022-05-05 11:35 | PN.PCM_ITS ---
History of Present Illness Date of Service: 05/05/22 Chief Complaint: Right ischial pressure sore, Stage IV. History of Wound: This is a 66-year-old white male who presented to the wound healing center with complaints of pressure ulcer to right buttock area with extension to the right ischial bone. This started in October,. Patient's was treating with OTC creams and keeping area clean. The ulcer starting increasing in size and went to the Emergency Department on 02/08/22. CT showed subcutaneous and deep soft tissue involvement and possible early abscess formation. The bone was not addressed. He had a wound culture on 02/28/22. It was positive for E. coli, Staphylococcus aureus, and Clostridium perfringens. He was treated with Augmentin. The patient has very limited mobility as a result of a prior spine injury/surgery. He utilizes a wheelchair at all times and requires a billy lift to transfer to cot here. He sits in his wheelchair almost all day, not really able to change positions. They finally obtained a low air loss overlay to their regular mattress at home. A roho cushion was ordered for his wheelchair. Patient is a smoker. Surgery 04/28/22 - Excision right ischial pressure sore, Stage IV, with partial ostectomy for osteomyelitis. Size of wound 8 x 7 x 4.5 cm. Operative tissue cultures positive for MSSA and Cutibacterium acnes. Bone cultures positive for MSSA and Corynebacterium striatum. He is being treated with Augmentin. Prealbumin 13.4 on 04/29/22. He was seen in the ED on 05/02/22 because of a couple falls he experienced since his surgery. CT of his pelvis showed some bony disruption at the level of the inferior pubic ramus suggests a mild osteomyelitis. Anticipate increased metabolic demands from the infection. Encourage nutritional supplementation with protein to help the healing process. Today he denies fever. His appetite is ok. Progress of Wound: Ulcer is beefy pink. There is bone palpable. His is having issues with keeping the area clean and she is feeling overwhelmed with the increase in his care. They have a follow up with Dr. Romero on 05/27 for consult for colostomy if there is improvement in his prealbumin. Objective Data Objective Data Vital Signs: Vital Signs Temp Pulse Resp BP O2 Del Method 97.2 F L 98 16 146/86 H Room Air 05/05/22 10:54 05/05/22 10:54 05/05/22 10:54 05/05/22 10:54 05/05/22 10:54 Oxygen Delivery Method Room Air Weight: 220 lb Body Mass Index (BMI) 35.5 Charges/Coding Procedures Integumentary 111xxx-113xx: 24181 Global Visit Physical Exam Const alert General Appearance: cooperative HEENT normocephalic Resp normal respiratory effort Cardio regular rate Extremity normal capillary refill Skin Wound Narrative: Right ischial ulcer is pink, with bone palpable, into the muscle. No active bleeding. Michelle wound stable. Neuro CN's II-XII intact bilaterally Psych affect normal Debridement Note Debridement Note No debridement was completed: No debridement was completed today Post-Debridement Measurements and Additional Note: Post-Debridement Measurements/Treatment WC - Nurse 1 - General Ulcer Assessment Start: 05/05/22 10:54 Freq: Status: Active Protocol: DILCIA.NORIS Activity Type Activity Date Activity User E-sign Co-sign Detail Recorded Client Recorded Date Recorded By Document 05/05/22 10:54 [facility] [id number] 05/05/22 10:57 [facility] 05/05/22 10:54 WC - Today's Visit Information Type of service Follow-up Visit (Physician/TUFTER HAND ) Arrival Mode Wheelchair Transfer Assistance Billy Lift Accompanied by Patient Identification Verified (Name & Yes ) Patient Requires Transmission-Based No Precautions Height and Weight Body Mass Index (BMI) 35.5 BMI Classification Obese Vital Signs Temperature (97.8 F-99.1 F) 97.2 F L Temperature Source Temporal Pulse Rate (60-100) 98 Pulse Location Monitor Respiratory Rate (12-18) 16 Respiratory rate source Observation Oxygen Delivery Method Room Air Blood Pressure (90/60-120/80) 146/86 H Blood Pressure Mean (mm Hg) 106 Source Monitor Position Sitting Blood Pressure Location Left Arm History Since Last Visit- (Skip if this is Patient's initial visit) Have you changed medications since your No last visit? Any new allergies or adverse reactions No Had a fall/change in ADL's that may No increase risk of falls Signs or symptoms of abuse and/or No neglect since last visit Have you been in the hospital since your No last visit? Has dressing in place as prescribed Yes Has compression in place as prescribed N/A Has offloadiing in place as prescribed N/A Experienced any changes in pain level or No management Left Footwear Regular Shoe Right Footwear Regular Shoe Pain Scale: 0-10 Numeric Is Patient Pain Free? Yes - Nurse 1 - General Ulcer Measurement Start: 05/05/22 10:54 Freq: Status: Active Protocol: Activity Type Activity Date Activity User E-sign Co-sign Detail Recorded Client Recorded Date Recorded By Document 05/05/22 10:54 [facility] [id number] 05/05/22 10:57 [facility] 05/05/22 10:54 Wound Center Nurse 1 #5- R ischium -Combined with other wound No -Current Size (cm) - Length 7.5 -Current Size (cm) - Width 8 -Current Size (cm) - Depth 6.3 -Total Square Cm 60.0 -Date of Last Picture (Recall this 05/05/22 field) -Photo Taken Yes -Epithelialization None Present -Tunneling No -Undermining/Tunneling Yes -Undermining/Tunneling Starts (O'clock 12 ) -Undermining/Tunneling Ends (O'clock) 3 -Maximum Distance (cm) 1.4 -Exudate Amt Large -Exudate Type Serosanguineous -Wound Margin Distinct, Outline Attached -Granulation Amt Large (67-100%) -Granulation Quality Red -Slough/Fibrin Yes -Necrosis Amt Small (1-33%) -Necrotic Tissue Type Adherent Slough -Structure Exposed Bone -Texture (Michelle-wound Skin Appearance) Assessed, Scarring -Moisture (Michelle-wound Skin Appearance) Assessed -Color (Michelle-wound Skin Appearance) Assessed -Temperature (Michelle-wound Skin No Abnormality Appearance) (Pt Warm) -Tenderness on Palpation (Michelle-wound Yes Skin Appearance) -Ulcer Cleansing Soap and Water -Foul Odor after Cleansing No -Anesthetic Used 4% Lidocaine Solution - Nurse 2 - General Ulcer CM Notes Start: 05/05/22 10:54 Freq: Status: Active Protocol: Activity Type Activity Date Activity User E-sign Co-sign Detail Recorded Client Recorded Date Recorded By Document 05/05/22 11:08 [facility] [id number] 05/05/22 11:14 [facility] 05/05/22 11:08 Wound Center Nurse 2 -Correct Patient No -Correct Side, Site, Position No -Correct Procedure No -Procedure Performed No -Wound/Ulcer Outcome Not Healed -Ulcer Cleansing Rinsed/ Irrigated with Saline -Foul Odor after Cleansing No -Bioengineered Tissue No -Bleeding Controlled with NA -Offloading No -Debridement - Muscle / Fascia, 1st No 20sq cm Pain Scale: 0-10 Numeric Is Patient Pain Free? No right ischial ulcer -Description Sharp -Intensity 10 -Duration (hours) Chronic -Pain Behavior Facial Grimacing -Pain Aggravating Factors ADL's,Changing Position, Surgery -Alleviating Factors/Interventions Medication -Effectiveness of Alleviating Factor/ Moderately Intervention effective WC - Nurse 3 - General Ulcer D/C NN Start: 05/05/22 10:54 Freq: Status: Active Protocol: Activity Type Activity Date Activity User E-sign Co-sign Detail Recorded Client Recorded Date Recorded By Document 05/05/22 11:20 [facility] [id number] 05/05/22 11:21 [facility] 05/05/22 11:20 Wound Care Center Nurse 3 #5- R ischium -Ulcer Cleansing Rinsed/ Irrigated with Saline -Foul Odor after Cleansing No -Other Dressing dakins moist gauze -Other Covering abd; drsg per [employer] grants administrator Treatment Response Procedure Tolerated Well Pain Scale: 0-10 Numeric Is Patient Pain Free? Yes WC - Visit Discharge Discharge Condition Stable Ambulatory Status Wheelchair Transportation [facility] Accompanied by Facility Type Home Health Assessment/Plan Assessment/Plan (1) Right ischial pressure sore, stage 4: CODE(S): L89.314 - Pressure ulcer of right buttock, stage 4 (2) Osteomyelitis of right side of pelvis: CODE(S): M86.9 - Osteomyelitis, unspecified (3) Bedridden: CODE(S): Z74.01 - Bed confinement status (4) Smoker: CODE(S): F17.200 - Nicotine dependence, unspecified, uncomplicated PLAN: Plan Patient evaluated at the wound center today. Wound care - Dakins 0.25% moistened gauze covered by ABD/super absorber daily and as needed. They have home health to help assist with his dressing changes. Surgery 04/28/22 - Excision right ischial pressure sore, Stage IV, with partial ostectomy for osteomyelitis. Size of wound 8 x 7 x 4.5 cm. Operative tissue cultures positive for MSSA and Cutibacterium acnes. Bone cultures positive for MSSA and Corynebacterium striatum. He is being treated with Augmentin. Prealbumin 13.4 on 04/29/22. He was seen in the ED on 05/02/22 because of a couple falls he experienced since his surgery. CT of his pelvis showed some bony disruption at the level of the inferior pubic ramus suggests a mild osteomyelitis. Anticipate increased metabolic demands from the infection. Encourage nutritional supplementation with protein to help the healing process. He follows up with Dr. Romero on 05/27 to see if he is eligible for colostomy. His is hugo overwhelmed with the increase acuity of his care. I spoke with our social sciences research scientist/case management at the hospital and they stated that if it is too much for her to care for him at home to have their home health have a social sciences research scientist go out and evaluate their needs. I spoke with his about this and she states she would like to keep things as they are but if she needs more help she will let us know. Follow up one week. Call or come in sooner if needed.
[2022-05-12 08:40] VITALS: BP 118/62; PULSE 99; RESP 16; TEMP 35.7; BMI 35.5
--- NOTE | 2022-05-12 11:40 | PN.PCM_ITS ---
History of Present Illness Date of Service: 05/12/22 Chief Complaint: Right ischial pressure sore, Stage IV. History of Wound: This is a 66-year-old white male who presented to the wound healing center with complaints of pressure ulcer to right buttock area with extension to the right ischial bone. This started in October,. Patient's was treating with OTC creams and keeping area clean. The ulcer starting increasing in size and went to the Emergency Department on 02/08/22. CT showed subcutaneous and deep soft tissue involvement and possible early abscess formation. The bone was not addressed. He had a wound culture on 02/28/22. It was positive for E. coli, Staphylococcus aureus, and Clostridium perfringens. He was treated with Augmentin. The patient has very limited mobility as a result of a prior spine injury/surgery. He utilizes a wheelchair at all times and requires a lm lift to transfer to cot here. He sits in his wheelchair almost all day, not really able to change positions. They finally obtained a low air loss overlay to their regular mattress at home. A roho cushion was ordered for his wheelchair. Patient is a smoker. Surgery 04/28/22 - Excision right ischial pressure sore, Stage IV, with partial ostectomy for osteomyelitis. Size of wound 8 x 7 x 4.5 cm. Operative tissue cultures positive for MSSA and Cutibacterium acnes. Bone cultures positive for MSSA and Corynebacterium striatum. He is being treated with Augmentin. Prealbumin 13.4 on 04/29/22. He was seen in the ED on 05/02/22 because of a couple falls he experienced since his surgery. CT of his pelvis showed some bony disruption at the level of the inferior pubic ramus suggests a mild osteomyelitis. Anticipate increased metabolic demands from the infection. Encourage nutritional supplementation with protein to help the healing process. Today he denies fever. His appetite is ok. Progress of Wound: Ulcer is beefy pink. There is bone palpable. Ulcer is stable. They have a follow up with Dr. Romero on 05/27 for consult for colostomy if there is improvement in his prealbumin. Objective Data Objective Data Vital Signs: Vital Signs Temp Pulse Resp BP O2 Del Method 96.2 F L 99 16 118/62 Room Air 05/12/22 08:40 05/12/22 08:40 05/12/22 08:40 05/12/22 08:40 05/12/22 08:40 Oxygen Delivery Method Room Air Weight: 220 lb Body Mass Index (BMI) 35.5 Charges/Coding Procedures Integumentary 111xxx-113xx: 14890 Global Visit Debridement Note Debridement Note Wound debrided: Ischial ulcer Laterality: Right Wound Grade/Stage: Stage IV Type of Debridement: Excisional debridement Anesthesia Used: 5% Lidocaine Gel Depth: Down to and including healthy tissue, in the subcutaneous layer and to muscle Percentage of wound debrided: 100 Instrument Used: 7mm curette Tissue Removed: Devitalized tissue and slough into the muscle Severity: Fat Layer Exposed Amount of bleeding with debridement: Mild Bleeding Controlled with: Pressure and Compression and gauze Patient tolerated procedure: Patient tolerated procedure well Post-Debridement Measurements and Additional Note: Post-Debridement Measurements/Treatment - Nurse 1 - General Ulcer Assessment Start: 05/05/22 10:54 Freq: Status: Active Protocol: KIRA Activity Type Activity Date Activity User E-sign Co-sign Detail Recorded Client Recorded Date Recorded By Document 05/05/22 10:54 [facility] [id number] 05/05/22 10:57 [facility] Document 05/12/22 08:40 [facility] [id number] 05/12/22 08:49 [facility] 05/05/22 05/12/22 10:54 08:40 - Today's Visit Information Type of service Follow-up Visit Follow-up Visit (Physician/TRAVEL SERVICES PROFESSIONAL (Physician/TRAVEL SERVICES PROFESSIONAL ) ) Arrival Mode Wheelchair Wheelchair Transfer Assistance Lm Lift Lm Lift Transfer Assist (Other) 2 Accompanied by Patient Identification Verified (Name & Yes Yes ) Patient Requires Transmission-Based No No Precautions Height and Weight Body Mass Index (BMI) 35.5 35.5 BMI Classification Obese Obese Vital Signs Temperature (97.8 F-99.1 F) 97.2 F L 96.2 F L Temperature Source Temporal Temporal Pulse Rate (60-100) 98 99 Pulse Location Monitor Monitor Respiratory Rate (12-18) 16 16 Respiratory rate source Observation Observation Oxygen Delivery Method Room Air Room Air Blood Pressure (90/60-120/80) 146/86 H 118/62 Blood Pressure Mean (mm Hg) 106 80 Source Monitor Monitor Position Sitting Sitting Blood Pressure Location Left Arm Right Arm History Since Last Visit- (Skip if this is Patient's initial visit) Have you changed medications since your No No last visit? Any new allergies or adverse reactions No No Had a fall/change in ADL's that may No No increase risk of falls Signs or symptoms of abuse and/or No No neglect since last visit Have you been in the hospital since your No No last visit? Has dressing in place as prescribed Yes Yes Has compression in place as prescribed N/A N/A Has offloadiing in place as prescribed N/A N/A Experienced any changes in pain level or No No management Left Footwear Regular Shoe Regular Shoe Right Footwear Regular Shoe Regular Shoe Pain Scale: 0-10 Numeric Is Patient Pain Free? Yes Yes WC - Nurse 1 - General Ulcer Measurement Start: 05/05/22 10:54 Freq: Status: Active Protocol: Activity Type Activity Date Activity User E-sign Co-sign Detail Recorded Client Recorded Date Recorded By Document 05/05/22 10:54 [facility] [id number] 05/05/22 10:57 [facility] Document 05/12/22 08:40 [facility] [id number] 05/12/22 08:49 [facility] 05/05/22 05/12/22 10:54 08:40 Wound Center Nurse 1 #5- R ischium -Combined with other wound No No -Current Size (cm) - Length 7.5 7 -Current Size (cm) - Width 8 6.6 -Current Size (cm) - Depth 6.3 4.9 -Total Square Cm 60.0 46.2 -Date of Last Picture (Recall this 05/05/22 05/12/22 field) -Photo Taken Yes Yes -Epithelialization None Present None Present -Tunneling No No -Undermining/Tunneling Yes Yes -Undermining/Tunneling Starts (O'clock 12 10 ) -Undermining/Tunneling Ends (O'clock) 3 12 -Maximum Distance (cm) 1.4 1 -Undermining/Tunneling Starts #2 (O' 1 clock) -Exudate Amt Large Large -Exudate Type Serosanguineous Sanguineous -Wound Margin Distinct, Distinct, Outline Outline Attached Attached -Granulation Amt Large (67-100%) Large (67-100%) -Granulation Quality Red Red -Slough/Fibrin Yes Yes -Necrosis Amt Small (1-33%) Small (1-33%) -Necrotic Tissue Type Adherent Slough Adherent Slough -Structure Exposed Bone -Texture (Michelle-wound Skin Appearance) Assessed, Assessed, Scarring Scarring -Moisture (Michelle-wound Skin Appearance) Assessed Assessed -Color (Michelle-wound Skin Appearance) Assessed Assessed -Temperature (Michelle-wound Skin No Abnormality No Abnormality Appearance) (Pt Warm) (Pt Warm) -Tenderness on Palpation (Michelle-wound Yes No Skin Appearance) -Ulcer Cleansing Soap and Water Soap and Water -Foul Odor after Cleansing No No -Anesthetic Used 4% Lidocaine 4% Lidocaine Solution Solution WC - Nurse 2 - General Ulcer CM Notes Start: 05/05/22 10:54 Freq: Status: Active Protocol: Activity Type Activity Date Activity User E-sign Co-sign Detail Recorded Client Recorded Date Recorded By Document 05/05/22 11:08 [facility] [id number] 05/05/22 11:14 [facility] Document 05/12/22 09:05 [id number] 05/12/22 09:06 05/05/22 05/12/22 11:08 09:05 Wound Center Nurse 2 #5- R ischium -Time 09:05 -Correct Patient No Yes -Correct Side, Site, Position No Yes -Correct Procedure No Yes -Procedure Performed No Yes -Type of Procedure Debridement -Clinical Debridement Muscle / Fascia -Tissue Removed Muscle,Fascia -Post Debridement (cm) - Length 8.0 -Post Debridement (cm) - Width 7.5 -Post Debridement (cm) - Depth 4.6 -Total Square (Post) (cm) 60.00 -Area of Debridement (cm) - Length 8.0 -Area of Debridement (cm) - Width 7.5 -Total Square (Area) (cm) 60.00 -Tunneling No -Undermining/Tunneling No -Circular Undermining No -Wound/Ulcer Outcome Not Healed Not Healed -Ulcer Cleansing Rinsed/ Rinsed/ Irrigated with Irrigated with Saline Saline -Foul Odor after Cleansing No No -Bioengineered Tissue No No -Bleeding Controlled with NA Pressure -Treatment Response Procedure Tolerated Well -Offloading No No -Assistive Device(s) Wheelchair -Pressure Reduction Wheelchair cushion -Debridement - Muscle / Fascia, 1st No Yes 20sq cm -Debridement, Muscle/Fascia, ea addt'l 2 20sq cm or part thereof Pain Scale: 0-10 Numeric Is Patient Pain Free? No Yes right ischial ulcer -Description Sharp -Intensity 10 -Duration (hours) Chronic -Pain Behavior Facial Grimacing -Pain Aggravating Factors ADL's,Changing Position, Surgery -Alleviating Factors/Interventions Medication -Effectiveness of Alleviating Factor/ Moderately Intervention effective WC - Nurse 3 - General Ulcer D/C NN Start: 05/05/22 10:54 Freq: Status: Active Protocol: Activity Type Activity Date Activity User E-sign Co-sign Detail Recorded Client Recorded Date Recorded By Document 05/05/22 11:20 [facility] [id number] 05/05/22 11:21 BM Document 05/12/22 09:15 ML [id number] 05/12/22 09:15 ML 05/05/22 05/12/22 11:20 09:15 Wound Care Center Nurse 3 #5- R ischium -Ulcer Cleansing Rinsed/ Rinsed/ Irrigated with Irrigated with Saline Saline -Foul Odor after Cleansing No No -Other Dressing dakins moist DAKINS gauze MOISTENED GAUZE -Primary Dressing Covered/Secured with Dry Gauze, Secured with Tape -Other Covering abd; drsg per [place] sports commentator Treatment Response Procedure Tolerated Well Pain Scale: 0-10 Numeric Is Patient Pain Free? Yes Yes WC - Visit Discharge Discharge Condition Stable Ambulatory Status Wheelchair Transportation [facility] Accompanied by Facility Type Home Health Assessment/Plan Assessment/Plan (1) Right ischial pressure sore, stage 4: CODE(S): L89.314 - Pressure ulcer of right buttock, stage 4 (2) Osteomyelitis of right side of pelvis: CODE(S): M86.9 - Osteomyelitis, unspecified (3) Bedridden: CODE(S): Z74.01 - Bed confinement status (4) Smoker: CODE(S): F17.200 - Nicotine dependence, unspecified, uncomplicated PLAN: Plan Patient evaluated at the wound center today. Wound care - Dakins 0.25% moistened gauze covered by ABD/super absorber daily and as needed. They have home health to help assist with his dressing changes. Operative tissue cultures positive for MSSA and Cutibacterium acnes. Bone cultures positive for MSSA and Corynebacterium striatum. He is being treated with Augmentin. He was seen in the ED on 05/02/22 because of a couple falls he experienced since his surgery. CT of his pelvis showed some bony disruption at the level of the inferior pubic ramus suggests a mild osteomyelitis. Prealbumin 13.4 on 04/29/22. Anticipate increased metabolic demands from the infection. Encourage nutritional supplementation with protein to help the healing process. He follows up with Dr. Romero on 05/27 to see if he is eligible for colostomy. Patient's was not with him for this visit, I phoned her to update him on the plan of care. She states that things are going better at home. She has more help from family and friends to assist in his care. Follow up two weeks. Call or come in sooner if needed.
[2022-05-26 08:40] VITALS: BP 111/61; PULSE 82; RESP 16; TEMP 35.8; BMI 35.5
--- NOTE | 2022-05-26 10:32 | PN.PCM_ITS ---
History of Present Illness Date of Service: 05/26/22 Chief Complaint: Right ischial pressure sore, Stage IV. History of Wound: This is a 66-year-old white male who presented to the wound healing center with complaints of pressure ulcer to right buttock area with extension to the right ischial bone. This started in October,. Patient's was treating with OTC creams and keeping area clean. The ulcer starting increasing in size and went to the Emergency Department on 02/08/22. CT showed subcutaneous and deep soft tissue involvement and possible early abscess formation. The bone was not addressed. He had a wound culture on 02/28/22. It was positive for E. coli, Staphylococcus aureus, and Clostridium perfringens. He was treated with Augmentin. The patient has very limited mobility as a result of a prior spine injury/surgery. He utilizes a wheelchair at all times and requires a lm lift to transfer to cot here. He sits in his wheelchair almost all day, not really able to change positions. They finally obtained a low air loss overlay to their regular mattress at home. A roho cushion was ordered for his wheelchair. Patient is a smoker. Surgery 04/28/22 - Excision right ischial pressure sore, Stage IV, with partial ostectomy for osteomyelitis. Size of wound 8 x 7 x 4.5 cm. Operative tissue cultures positive for MSSA and Cutibacterium acnes. Bone cultures positive for MSSA and Corynebacterium striatum. He is being treated with Augmentin. Prealbumin 13.4 on 04/29/22. He was seen in the ED on 05/02/22 because of a couple falls he experienced since his surgery. CT of his pelvis showed some bony disruption at the level of the inferior pubic ramus suggests a mild osteomyelitis. Anticipate increased metabolic demands from the infection. Encourage nutritional supplementation with protein to help the healing process. Today he denies fever. His appetite is ok. Progress of Wound: Ulcer is beefy pink. The ulcer is into the muscle and has bone palpable. Ulcer has slightly improved. Michelle wound is clear. They have a follow up with Dr. Romero tomorrow, 05/27 for consult for colostomy if there is improvement in his prealbumin. Patient states that he has been increasing his protein intake. He states that he is off loading and is in bed most of the time. Objective Data Objective Data Vital Signs: Vital Signs Temp Pulse Resp BP O2 Del Method 96.4 F L 82 16 111/61 Room Air 05/26/22 08:40 05/26/22 08:40 05/26/22 08:40 05/26/22 08:40 05/26/22 08:40 Oxygen Delivery Method Room Air Weight: 220 lb Body Mass Index (BMI) 35.5 Charges/Coding Procedures Integumentary 111xxx-113xx: 62035 Global Visit Debridement Note Debridement Note Wound debrided: Ischial ulcer Laterality: Right Wound Grade/Stage: Stage IV Type of Debridement: Excisional debridement Anesthesia Used: 5% Lidocaine Gel Depth: Down to and including healthy tissue, in the subcutaneous layer and to muscle Percentage of wound debrided: 100 Instrument Used: 7mm curette Tissue Removed: Devitalized tissue and slough into the muscle Severity: Fat Layer Exposed Amount of bleeding with debridement: Mild Bleeding Controlled with: Pressure and Compression and gauze Patient tolerated procedure: Patient tolerated procedure well Debridement Free Text: Ulcer into the muscle, bone palpable but not debrided. Post-Debridement Measurements and Additional Note: Post-Debridement Measurements/Treatment - Nurse 1 - General Ulcer Assessment Start: 05/05/22 10:54 Freq: Status: Active Protocol: KIRA Activity Type Activity Date Activity User E-sign Co-sign Detail Recorded Client Recorded Date Recorded By Document 05/05/22 10:54 [facility] [id number] 05/05/22 10:57 [facility] Document 05/12/22 08:40 [facility] [id number] 05/12/22 08:49 [facility] Document 05/26/22 08:40 DL [id number] 05/26/22 08:42 DL 05/05/22 05/12/22 05/26/22 10:54 08:40 08:40 - Today's Visit Information Type of service Follow-up Visit Follow-up Visit Follow-up Visit (Physician/GOSPEL SINGER (Physician/GOSPEL SINGER (Physician/GOSPEL SINGER ) ) ) Arrival Mode Wheelchair Wheelchair Wheelchair Transfer Assistance Lm Lift Lm Lift Lm Lift Transfer Assist (Other) 2 2 Accompanied by Patient Identification Verified (Name & Yes Yes Yes ) Patient Requires Transmission-Based No No No Precautions Height and Weight Body Mass Index (BMI) 35.5 35.5 35.5 BMI Classification Obese Obese Obese Vital Signs Temperature (97.8 F-99.1 F) 97.2 F L 96.2 F L 96.4 F L Temperature Source Temporal Temporal Temporal Pulse Rate (60-100) 98 99 82 Pulse Location Monitor Monitor Monitor Respiratory Rate (12-18) 16 16 16 Respiratory rate source Observation Observation Observation Oxygen Delivery Method Room Air Room Air Room Air Blood Pressure (90/60-120/80) 146/86 H 118/62 111/61 Blood Pressure Mean (mm Hg) 106 80 77 Source Monitor Monitor Monitor Position Sitting Sitting Sitting Blood Pressure Location Left Arm Right Arm Left Arm History Since Last Visit- (Skip if this is Patient's initial visit) Have you changed medications since your No No No last visit? Any new allergies or adverse reactions No No No Had a fall/change in ADL's that may No No No increase risk of falls Signs or symptoms of abuse and/or No No No neglect since last visit Have you been in the hospital since your No No No last visit? Has dressing in place as prescribed Yes Yes Yes Has compression in place as prescribed N/A N/A N/A Has offloadiing in place as prescribed N/A N/A N/A Experienced any changes in pain level or No No No management Left Footwear Regular Shoe Regular Shoe Regular Shoe Right Footwear Regular Shoe Regular Shoe Regular Shoe Pain Scale: 0-10 Numeric Is Patient Pain Free? Yes Yes Yes WC - Nurse 1 - General Ulcer Measurement Start: 05/05/22 10:54 Freq: Status: Active Protocol: Activity Type Activity Date Activity User E-sign Co-sign Detail Recorded Client Recorded Date Recorded By Document 05/05/22 10:54 [facility] [id number] 05/05/22 10:57 BM Document 05/12/22 08:40 BMF [id number] 05/12/22 08:49 [facility] Document 05/26/22 08:40 DL [id number] 05/26/22 08:42 DL 05/05/22 05/12/22 05/26/22 10:54 08:40 08:40 Wound Center Nurse 1 #5- R ischium -Combined with other wound No No No -Current Size (cm) - Length 7.5 7 7 -Current Size (cm) - Width 8 6.6 6 -Current Size (cm) - Depth 6.3 4.9 6.2 -Total Square Cm 60.0 46.2 42 -Date of Last Picture (Recall this 05/05/22 05/12/22 05/26/22 field) -Photo Taken Yes Yes Yes -Epithelialization None Present None Present None Present -Tunneling No No No -Undermining/Tunneling Yes Yes No -Undermining/Tunneling Starts (O'clock 12 10 ) -Undermining/Tunneling Ends (O'clock) 3 12 -Maximum Distance (cm) 1.4 1 -Undermining/Tunneling Starts #2 (O' 1 clock) -Circular Undermining No -Exudate Amt Large Large Large -Exudate Type Serosanguineous Sanguineous Serosanguineous -Wound Margin Distinct, Distinct, Distinct, Outline Outline Outline Attached Attached Attached -Granulation Amt Large (67-100%) Large (67-100%) Large (67-100%) -Granulation Quality Red Red Red -Slough/Fibrin Yes Yes Yes -Necrosis Amt Small (1-33%) Small (1-33%) Small (1-33%) -Necrotic Tissue Type Adherent Slough Adherent Slough Adherent Slough -Structure Exposed Bone Bone -Texture (Michelle-wound Skin Appearance) Assessed, Assessed, Assessed, Scarring Scarring Scarring -Moisture (Michelle-wound Skin Appearance) Assessed Assessed Assessed -Color (Michelle-wound Skin Appearance) Assessed Assessed Assessed -Temperature (Michelle-wound Skin No Abnormality No Abnormality No Abnormality Appearance) (Pt Warm) (Pt Warm) (Pt Warm) -Tenderness on Palpation (Michelle-wound Yes No No Skin Appearance) -Ulcer Cleansing Soap and Water Soap and Water Soap and Water -Foul Odor after Cleansing No No No -Anesthetic Used 4% Lidocaine 4% Lidocaine 4% Lidocaine Solution Solution Solution WC - Nurse 2 - General Ulcer CM Notes Start: 05/05/22 10:54 Freq: Status: Active Protocol: Activity Type Activity Date Activity User E-sign Co-sign Detail Recorded Client Recorded Date Recorded By Document 05/05/22 11:08 [facility] [id number] 05/05/22 11:14 [facility] Document 05/12/22 09:05 [id number] 05/12/22 09:06 Document 05/26/22 09:42 [id number] 05/26/22 09:44 05/05/22 05/12/22 05/26/22 11:08 09:05 09:42 Wound Center Nurse 2 #5- R ischium -Time 09:05 09:42 -Correct Patient No Yes Yes -Correct Side, Site, Position No Yes Yes -Correct Procedure No Yes Yes -Procedure Performed No Yes Yes -Type of Procedure Debridement Debridement -Clinical Debridement Muscle / Fascia Muscle / Fascia -Tissue Removed Muscle,Fascia Muscle,Fascia -Post Debridement (cm) - Length 8.0 7.3 -Post Debridement (cm) - Width 7.5 8.0 -Post Debridement (cm) - Depth 4.6 5.0 -Total Square (Post) (cm) 60.00 58.40 -Area of Debridement (cm) - Length 8.0 7.3 -Area of Debridement (cm) - Width 7.5 8.0 -Total Square (Area) (cm) 60.00 58.40 -Tunneling No No -Undermining/Tunneling No No -Circular Undermining No No -Wound/Ulcer Outcome Not Healed Not Healed Not Healed -Ulcer Cleansing Rinsed/ Rinsed/ Rinsed/ Irrigated with Irrigated with Irrigated with Saline Saline Saline -Foul Odor after Cleansing No No No -Bioengineered Tissue No No No -Bleeding Controlled with NA Pressure Pressure -Treatment Response Procedure Procedure Tolerated Well Tolerated Well -Offloading No No No -Assistive Device(s) Wheelchair Wheelchair -Pressure Reduction Wheelchair Wheelchair cushion cushion, Mattress overlay -Debridement - Muscle / Fascia, 1st No Yes Yes 20sq cm -Debridement, Muscle/Fascia, ea addt'l 2 2 20sq cm or part thereof Pain Scale: 0-10 Numeric Is Patient Pain Free? No Yes Yes right ischial ulcer -Description Sharp -Intensity 10 -Duration (hours) Chronic -Pain Behavior Facial Grimacing -Pain Aggravating Factors ADL's,Changing Position, Surgery -Alleviating Factors/Interventions Medication -Effectiveness of Alleviating Factor/ Moderately Intervention effective WC - Nurse 3 - General Ulcer D/C NN Start: 05/05/22 10:54 Freq: Status: Active Protocol: Activity Type Activity Date Activity User E-sign Co-sign Detail Recorded Client Recorded Date Recorded By Document 05/05/22 11:20 BMF [id number] 05/05/22 11:21 BM[facility] Document 05/12/22 09:15 ML [id number] 05/12/22 09:15 ML Document 05/26/22 09:47 DL [id number] 05/26/22 09:48 DL 05/05/22 05/12/22 05/26/22 11:20 09:15 09:47 Wound Care Center Nurse 3 #5- R ischium -Ulcer Cleansing Rinsed/ Rinsed/ Rinsed/ Irrigated with Irrigated with Irrigated with Saline Saline Saline -Foul Odor after Cleansing No No No -Other Dressing dakins moist DAKINS dakins gauze MOISTENED GAUZE -Primary Dressing Covered/Secured with Dry Gauze, Dry Gauze, Secured with Secured with Tape Tape -Other Covering abd; drsg per ABD ak [employer] Treatment Response Procedure Procedure Tolerated Well Tolerated Well Pain Scale: 0-10 Numeric Is Patient Pain Free? Yes Yes Yes WC - Visit Discharge Discharge Condition Stable Stable Ambulatory Status Wheelchair Wheelchair Transportation [facility] Accompanied by Facility Type Home Health Home Health Orders Sent Yes Assessment/Plan Assessment/Plan (1) Right ischial pressure sore, stage 4: CODE(S): L89.314 - Pressure ulcer of right buttock, stage 4 (2) Osteomyelitis of right side of pelvis: CODE(S): M86.9 - Osteomyelitis, unspecified (3) Bedridden: CODE(S): Z74.01 - Bed confinement status (4) Smoker: CODE(S): F17.200 - Nicotine dependence, unspecified, uncomplicated PLAN: Plan Patient evaluated at the wound center today. Wound care - Dakins 0.25% moistened gauze covered by ABD/super absorber daily and as needed. They have home health to help assist with his dressing changes. Operative tissue cultures positive for MSSA and Cutibacterium acnes. Bone cultures positive for MSSA and Corynebacterium striatum. He is being treated with Augmentin. He was seen in the ED on 05/02/22 because of a couple falls he experienced since his surgery. CT of his pelvis showed some bony disruption at the level of the inferior pubic ramus suggests a mild osteomyelitis. Prealbumin 13.4 on 04/29/22. Anticipate increased metabolic demands from the infection. Encourage nutritional supplementation with protein to help the healing process. He follows up with Dr. Romero tomorrow, 05/27, to see if he is eligible for colostomy. He has home health to assist with wound care. Follow up two weeks. Call or come in sooner if needed.
== END 2022-05-27 23:59 | disposition home or self-care (01) ==
LOC: WC 09:00
PROVIDERS: PCP Family Medicine; Referring Provider Physician Assistant; Visit Provider Nurse Practitioner Family
DX: L89.314 Pressure ulcer of right buttock, stage 4 (principal); M86.8X8 Other osteomyelitis, other site; F17.200 Nicotine dependence, unspecified, uncomplicated; Z74.01 Bed confinement status
CPT/HCPCS: 11043; 11046; 99214; G0463

== ENCOUNTER 2022-06-09 07:46 | Outpatient (RCR) | payer BC, MEDICARE, SELFPAY ==
[2022-05-28 00:14] VITALS: BP 111/61; PULSE 82; RESP 16; TEMP 35.8; BMI 35.5
[2022-06-09 08:15] VITALS: BP 131/56; PULSE 86; RESP 16; TEMP 35.5; BMI 35.5
--- NOTE | 2022-06-09 13:08 | PCM.WC.PN ---
History of Present Illness Date of Service: 06/09/22 Chief Complaint: Right ischial pressure sore, Stage IV. History of Wound: This is a 66-year-old white male who presented to the wound healing center with complaints of pressure ulcer to right buttock area with extension to the right ischial bone. This started in October,. Patient's was treating with OTC creams and keeping area clean. The ulcer starting increasing in size and went to the Emergency Department on 02/08/22. CT showed subcutaneous and deep soft tissue involvement and possible early abscess formation. The bone was not addressed. He had a wound culture on 02/28/22. It was positive for E. coli, Staphylococcus aureus, and Clostridium perfringens. He was treated with Augmentin. The patient has very limited mobility as a result of a prior spine injury/surgery. He utilizes a wheelchair at all times and requires a billy lift to transfer to cot here. He sits in his wheelchair almost all day, not really able to change positions. They finally obtained a low air loss overlay to their regular mattress at home. A roho cushion was ordered for his wheelchair. Patient is a smoker. Surgery 04/28/22 - Excision right ischial pressure sore, Stage IV, with partial ostectomy for osteomyelitis. Size of wound 8 x 7 x 4.5 cm. Operative tissue cultures positive for MSSA and Cutibacterium acnes. Bone cultures positive for MSSA and Corynebacterium striatum. He is being treated with Augmentin. Prealbumin 13.4 on 04/29/22. He was seen in the ED on 05/02/22 because of a couple falls he experienced since his surgery. CT of his pelvis showed some bony disruption at the level of the inferior pubic ramus suggests a mild osteomyelitis. Anticipate increased metabolic demands from the infection. Encourage nutritional supplementation with protein to help the healing process. Today he denies fever. His appetite is ok. Progress of Wound: Ulcer is beefy pink. The ulcer is into the muscle and bone is palpable. Ulcer has slightly improved. Michelle wound is clear. He is having stool that does get into the ulcer. He is scheduled for colostomy by Dr. Romero on 06/18/22. Objective Data Objective Data Vital Signs: Vital Signs Temp Pulse Resp BP O2 Del Method 95.9 F L 86 16 131/56 H Room Air 03/13/23 08:15 06/09/22 08:15 06/09/22 08:15 06/09/22 08:15 06/09/22 08:15 Oxygen Delivery Method Room Air Weight: 220 lb Body Mass Index (BMI) 35.5 Charges/Coding Procedures Integumentary 111xxx-113xx: 63334 Global Visit Debridement Note Debridement Note Wound debrided: Ischial ulcer Laterality: Right Wound Grade/Stage: Stage IV Type of Debridement: Excisional debridement Anesthesia Used: 5% Lidocaine Gel Depth: Down to and including healthy tissue, in the subcutaneous layer and to muscle Percentage of wound debrided: 100 Instrument Used: 7mm curette Tissue Removed: Devitalized tissue and slough into the muscle Severity: Fat Layer Exposed Amount of bleeding with debridement: Mild Bleeding Controlled with: Pressure and Compression and gauze Patient tolerated procedure: Patient tolerated procedure well Debridement Free Text: Ulcer into the muscle, bone palpable but not debrided. Post-Debridement Measurements and Additional Note: Post-Debridement Measurements/Treatment - Nurse 1 - General Ulcer Assessment Start: 06/09/22 08:13 Freq: Status: Active Protocol: DILCIA.LOWDEVORAHT Activity Type Activity Date Activity User E-sign Co-sign Detail Recorded Client Recorded Date Recorded By Document 06/09/22 08:15 [facility] [id number] 06/09/22 08:25 [facility] 06/09/22 08:15 - Today's Visit Information Type of service Follow-up Visit (Physician/[employer] ) Arrival Mode Wheelchair Transfer Assistance Billy Lift Patient Identification Verified (Name & Yes ) Patient Requires Transmission-Based No Precautions Height and Weight Body Mass Index (BMI) 35.5 BMI Classification Obese Vital Signs Temperature (97.8 F-99.1 F) 95.9 F L Temperature Source Temporal Pulse Rate (60-100) 86 Pulse Location Monitor Respiratory Rate (12-18) 16 Respiratory rate source Observation Oxygen Delivery Method Room Air Blood Pressure (90/60-120/80) 131/56 H Blood Pressure Mean (mm Hg) 81 Source Monitor Position Sitting Blood Pressure Location Right Arm History Since Last Visit- (Skip if this is Patient's initial visit) Have you changed medications since your No last visit? Any new allergies or adverse reactions No Had a fall/change in ADL's that may No increase risk of falls Signs or symptoms of abuse and/or No neglect since last visit Have you been in the hospital since your No last visit? Has dressing in place as prescribed Yes Has compression in place as prescribed N/A Has offloadiing in place as prescribed Yes Experienced any changes in pain level or No management Left Footwear Regular Shoe Right Footwear Regular Shoe Pain Scale: 0-10 Numeric Is Patient Pain Free? Yes - Nurse 1 - General Ulcer Measurement Start: 06/09/22 08:13 Freq: Status: Active Protocol: Activity Type Activity Date Activity User E-sign Co-sign Detail Recorded Client Recorded Date Recorded By Document 06/09/22 08:15 [facility] [id number] 06/09/22 08:25 [facility] 06/09/22 08:15 Wound Center Nurse 1 #5- R ischium -Combined with other wound No -Current Size (cm) - Length 6.5 -Current Size (cm) - Width 6 -Current Size (cm) - Depth 4.5 -Total Square Cm 39.0 -Date of Last Picture (Recall this 06/09/22 field) -Photo Taken Yes -Epithelialization Small 1-33% -Tunneling No -Undermining/Tunneling No -Circular Undermining No -Exudate Amt Large -Exudate Type Serosanguineous -Wound Margin Distinct, Outline Attached -Granulation Amt Large (67-100%) -Granulation Quality Red -Slough/Fibrin Yes -Necrosis Amt Small (1-33%) -Necrotic Tissue Type Adherent Slough -Structure Exposed Bone -Texture (Michelle-wound Skin Appearance) Assessed, Scarring -Moisture (Michelle-wound Skin Appearance) Assessed -Color (Michelle-wound Skin Appearance) Assessed -Temperature (Michelle-wound Skin No Abnormality Appearance) (Pt Warm) -Tenderness on Palpation (Michelle-wound No Skin Appearance) -Ulcer Cleansing Soap and Water -Foul Odor after Cleansing No -Anesthetic Used 4% Lidocaine Solution - Nurse 2 - General Ulcer CM Notes Start: 06/09/22 08:13 Freq: Status: Active Protocol: Activity Type Activity Date Activity User E-sign Co-sign Detail Recorded Client Recorded Date Recorded By Document 06/09/22 08:45 [id number] 06/09/22 08:47 [facility] 06/09/22 08:45 Wound Center Nurse 2 -Time 08:45 -Correct Patient Yes -Correct Side, Site, Position Yes -Correct Procedure Yes -Procedure Performed Yes -Type of Procedure Debridement -Clinical Debridement Muscle / Fascia -Tissue Removed Muscle,Fascia -Post Debridement (cm) - Length 6.5 -Post Debridement (cm) - Width 6.2 -Post Debridement (cm) - Depth 4.0 -Total Square (Post) (cm) 40.30 -Area of Debridement (cm) - Length 6.5 -Area of Debridement (cm) - Width 6.2 -Total Square (Area) (cm) 40.30 -Tunneling No -Undermining/Tunneling Yes -Undermining/Tunneling Starts (O'clock 12 ) -Undermining/Tunneling Ends (O'clock) 3 -Maximum Distance (cm) 5.2 -Circular Undermining No -Wound/Ulcer Outcome Not Healed -Ulcer Cleansing Rinsed/ Irrigated with Saline -Foul Odor after Cleansing No -Bioengineered Tissue No -Bleeding Controlled with Pressure -Treatment Response Procedure Tolerated Well -Offloading No -Pressure Reduction Wheelchair cushion -Debridement - Muscle / Fascia, 1st Yes 20sq cm Pain Scale: 0-10 Numeric Is Patient Pain Free? Yes - Nurse 3 - General Ulcer D/C NN Start: 06/09/22 08:13 Freq: Status: Active Protocol: Activity Type Activity Date Activity User E-sign Co-sign Detail Recorded Client Recorded Date Recorded By Document 06/09/22 08:53 [facility] [id number] 06/09/22 08:54 [facility] 06/09/22 08:53 Wound Care Center Nurse 3 #5- R ischium -Ulcer Cleansing Rinsed/ Irrigated with Saline -Foul Odor after Cleansing No -Primary Dressing Applied Hysept ($) -Other Dressing abd; drsg per dl roundsman -Primary Dressing Covered/Secured with Secured with Tape Treatment Response Procedure Tolerated Well Pain Scale: 0-10 Numeric Is Patient Pain Free? Yes - Visit Discharge Discharge Condition Stable Ambulatory Status Wheelchair Facility Type Home Health Assessment/Plan Assessment/Plan (1) Right ischial pressure sore, stage 4: CODE(S): L89.314 - Pressure ulcer of right buttock, stage 4 (2) Osteomyelitis of right side of pelvis: CODE(S): M86.9 - Osteomyelitis, unspecified (3) Bedridden: CODE(S): Z74.01 - Bed confinement status (4) Smoker: CODE(S): F17.200 - Nicotine dependence, unspecified, uncomplicated PLAN: Plan Patient evaluated at the wound center today. Wound care - Dakins 0.25% moistened gauze covered by ABD/super absorber daily and as needed. They have home health to help assist with his dressing changes. Operative tissue cultures positive for MSSA and Cutibacterium acnes. Bone cultures positive for MSSA and Corynebacterium striatum. He is being treated with Augmentin. He was seen in the ED on 05/02/22 because of a couple falls he experienced since his surgery. CT of his pelvis showed some bony disruption at the level of the inferior pubic ramus suggests a mild osteomyelitis. Prealbumin 13.4 on 04/29/22. Anticipate increased metabolic demands from the infection. Encourage nutritional supplementation with protein to help the healing process. He is scheduled for colostomy by Dr. Romero on 06/18/22. He has home health to assist with wound care. Follow up three weeks. Call or come in sooner if needed.
== END 2022-06-27 23:59 | disposition home or self-care (01) ==
LOC: WC 07:46
PROVIDERS: PCP Family Medicine; Referring Provider Physician Assistant; Visit Provider Nurse Practitioner Family
DX: L89.314 Pressure ulcer of right buttock, stage 4 (principal); M86.8X8 Other osteomyelitis, other site; F17.200 Nicotine dependence, unspecified, uncomplicated; Z74.01 Bed confinement status
CPT/HCPCS: 11043; 11046

== ENCOUNTER 2022-06-18 11:29 | Day surgery (SDC) | payer BC, MEDICARE, SELFPAY ==
[2022-06-18] VITALS (7 sets, daily range): BP systolic 86–111; BP diastolic 59–69; PULSE 76–84; RESP 16; TEMP 36.4–36.5; O2SAT 97–98; BMI 30.3
[2022-06-18] MEDS: Lactated Ringers 1,000 ML 15 ML IV (12:22)
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
--- NOTE | 2022-06-18 13:00 | COLBX_PTH ---
PATIENT: JORGE LINDSEY LOC: EN U#:[id number] AGE/SX: 66/M ROOM: RE06/18/[address]: Dr. Moustapha Romero MD : 1955 BED: DIS: 06/18/2022 SPEC #: [id number] RECD: 06/18/22 15:56 STATUS: DERRELL LICHA #: [id number] ERON: 06/18/22 13:[address]: Moustapha Romero DEPT: SURGICAL PATHOLOGY RECD BY: Lisa Tavarez ENTERED: 06/19/22 08:03 SP TYPE: COLON BX OTHR DR: No Primary Care Phys Tissues: A - Rectum, NOS B - Rectum, NOS C - Rectum, NOS Procedures: Surgery Specimen Level IV HEADER OPERATION: Colonoscopy (MAC) PRE-OP DIAGNOSIS: Right ischial pressure sore, constipation TISSUE SUBMITTED: A ? Rectal polyp #1, B ? Rectal polyp #2, C ? Rectal nodule MICROSCOPIC DIAGNOSIS A. Rectal polyp #1, biopsy: Fragment of colonic mucosa with focal hyperplastic change. B. Rectal polyp #2, biopsy: Hyperplastic polyp. C. Rectal nodule, biopsy: Fragments of benign colonic mucosa. See comment. AM:marcia 06/20/2022 COMMENT C. Neither hyperplastic nor adenomatous change is identified. Clinical correlation is suggested. MICROSCOPIC DESCRIPTION Slides are reviewed. GROSS DESCRIPTION A - Received in fixative is one container labeled with the patient's name and designated rectal polyp #1. The specimen consists of one irregular fragment of light bonilla soft tissue that measures 0.3 x 0.3 x 0.1 cm. The specimen is totally submitted in one cassette. B - Received in fixative is one container labeled with the patient's name and designated rectal polyp #2. The specimen consists of one irregular fragment of light bonilla soft tissue that measures 0.3 x 0.3 x 0.1 cm. The specimen is totally submitted in one cassette. C - Received in fixative is one container labeled with the patient's name and designated rectal nodule. The specimen consists of two irregular fragments of light bonilla soft tissue that in aggregate measure 0.4 x 0.3 x 0.1 cm. The specimen is totally submitted in one cassette. / JOSY:marcia 06/19/2022 TC:5 CPT: 22381 x3
--- NOTE | 2022-06-18 14:27 | OP.COLON_ITS ---
Patient Name: Magdy Covington Procedure Date: 06/18/2022 1:07 PM Date of : 1955 Age: 66 Procedure: Colonoscopy Indications: Screening for colorectal malignant neoplasm, Planning colostomy Providers: Moustapha Romero MD Referring MD: Moustapha Romero MD Medicines: Monitored Anesthesia Care Patient Profile: Refer to note in patient chart for documentation of history and physical. Last Colonoscopy: more than 10 years ago. Complications: No immediate complications. Estimated blood loss: Minimal. Procedure: Pre-Anesthesia Assessment: - The heart rate, respiratory rate, oxygen saturations, blood pressure, adequacy of pulmonary ventilation, and response to care were monitored throughout the procedure. After I obtained informed consent, the scope was passed under direct vision. Throughout the procedure, the patient's blood pressure, pulse, and oxygen saturations were monitored continuously. The pediatric colonoscope was introduced through the anus and advanced to the cecum, identified by the appendiceal orifice, IC valve and transillumination. The colonoscopy was somewhat difficult due to unusual anatomy. Successful completion of the procedure was aided by applying abdominal pressure. The patient tolerated the procedure well. The quality of the bowel preparation was adequate to identify polyps. Scope In: 1:16:20 PM Scope Withdrawal Time 0 hours 41 minutes 4 seconds Scope Out: 2:09:38 PM Total Procedure Duration Time 0 hours 53 minutes 18 seconds Findings: A 3 mm polyp was found in the rectum (benign-appearing lesion). The polyp was semi-sessile. Biopsies were taken with a cold forceps for histology. Estimated blood loss was minimal. A 3 mm polyp was found in the rectum (benign-appearing lesion). The polyp was semi-sessile. Biopsies were taken with a cold forceps for histology. Estimated blood loss: Minimal. Coagulation for hemostasis of bleeding caused by the procedure using heater probe was successful. One 2 mm mucosal nodule was found in the rectum. Biopsies were taken with a cold forceps for histology. Estimated blood loss was minimal. Impression: - One benign appearing 3 mm polyp in the rectum. Biopsied. - One benign appearing 3 mm polyp in the rectum. Biopsied. Treated with a heater probe. - Mucosal nodule in the rectum. Biopsied. Recommendation: - Discharge patient to home (with spouse). - Repeat colonoscopy is recommended [Repeat reason]. The colonoscopy date will be determined after pathology results from today's exam become available for review. - Continue present medications. Procedure Code(s): --- Professional --- 16233, Colonoscopy, flexible; with biopsy, single or multiple Diagnosis Code(s): --- Professional --- Z12.11, Encounter for screening for malignant neoplasm of colon K62.1, Rectal polyp K62.89, Other specified diseases of anus and rectum CPT copyright 2017 [employer]. All rights reserved. The codes documented in this report are preliminary and upon floor representative review may be revised to meet current compliance requirements. Moustapha Romero MD 06/18/2022 2:27:08 PM This report has been signed electronically. Number of Addenda: 0 Note Initiated On: 06/18/2022 1:07 PM
--- NOTE | 2022-06-18 14:56 | SUR.PHASEII ---
REQUEST THAT WE REDRESS PATIENTS RIGHT BUTTOCK WOUND. SHE IS UNSURE WHAT IT IS NORMALLY PACKED WITH, SHE STATES SHE HAS THE SUPPLIES AT HOME. PER REPORT FROM [facility]. PLACED A 4X4 MOISTENED WITH NS ON WOUND BED, COVERED WITH AN ABD AND SECURED WITH PAPER TAPE. PART OF THE WOUND WAS STILL VISIBLE SO PLACED A DRY FOLDED 4X4 OVER THE EXPOSED AREA. INFORMED OF DRESSING AND INSTRUCTED HER THAT SHE WOULD NEED TO PACK IT WITH WHATEVER SHE NORMALLY USES AT HOME. VOICED UNDERSTANDING.
== END 2022-06-18 15:25 | disposition home or self-care (01) ==
LOC: EN 11:31 → AC 11:34
PROVIDERS: Visit Provider Surgery
PROC: 0DJD8ZZ Inspection of Lower Intestinal Tract, Via Natural or Artificial Opening Endoscopic (ICD-10-PCS; CPT 45378; principal; 2022-06-18 12:55)
DX: K62.1 Rectal polyp (principal); Z93.3 Colostomy status; J44.9 Chronic obstructive pulmonary disease, unspecified; K59.00 Constipation, unspecified; F17.200 Nicotine dependence, unspecified, uncomplicated; E78.00 Pure hypercholesterolemia, unspecified; E07.9 Disorder of thyroid, unspecified; Z79.899 Other long term (current) drug therapy
CPT/HCPCS: 45380; 88305; J7120; J2405

== ENCOUNTER 2022-07-14 09:00 | Outpatient (RCR) | payer BC, MEDICARE, SELFPAY ==
[2022-06-28 01:16] VITALS: BP 131/56; PULSE 86; RESP 16; TEMP 35.5; BMI 35.5
[2022-06-30 08:16] VITALS: BP 133/83; PULSE 86; RESP 20; TEMP 35.6; BMI 35.5
--- NOTE | 2022-06-30 09:36 | PN.PCM_ITS ---
History of Present Illness Date of Service: 06/30/22 Chief Complaint: Right ischial pressure sore, Stage IV. History of Wound: This is a 66-year-old white male who presented to the wound healing center with complaints of pressure ulcer to right buttock area with extension to the right ischial bone. This started in October,. Patient's was treating with OTC creams and keeping area clean. The ulcer starting increasing in size and went to the Emergency Department on 02/08/22. CT showed subcutaneous and deep soft tissue involvement and possible early abscess formation. The bone was not addressed. He had a wound culture on 02/28/22. It was positive for E. coli, Staphylococcus aureus, and Clostridium perfringens. He was treated with Augmentin. The patient has very limited mobility as a result of a prior spine injury/surgery. He utilizes a wheelchair at all times and requires a billy lift to transfer to cot here. He sits in his wheelchair almost all day, not really able to change positions. They finally obtained a low air loss overlay to their regular mattress at home. A roho cushion was ordered for his wheelchair. Patient is a smoker. Surgery 04/28/22 - Excision right ischial pressure sore, Stage IV, with partial ostectomy for osteomyelitis. Size of wound 8 x 7 x 4.5 cm. Operative tissue cultures positive for MSSA and Cutibacterium acnes. Bone cultures positive for MSSA and Corynebacterium striatum. He is being treated with Augmentin. Prealbumin 13.4 on 04/29/22. He was seen in the ED on 05/02/22 because of a couple falls he experienced since his surgery. CT of his pelvis showed some bony disruption at the level of the inferior pubic ramus suggests a mild osteomyelitis. Anticipate increased metabolic demands from the infection. Encourage nutritional supplementation with protein to help the healing process. Today he denies fever. His appetite is ok. Progress of Wound: Ulcer is beefy pink. The ulcer is into the muscle and bone is almost covered. Ulcer has slightly improved. Michelle wound is clear. He has a colonoscopy by Dr. Romero on 06/18/22. The patient is trying to decide if he is interested in having a colostomy place because he was told that it would be permanent. Objective Data Objective Data Vital Signs: Vital Signs Temp Pulse Resp BP 96.1 F L 86 20 H 133/83 H 06/30/22 08:16 06/30/22 08:16 06/30/22 08:16 06/30/22 08:16 Weight: 220 lb Body Mass Index (BMI) 35.5 Charges/Coding Procedures Integumentary 111xxx-113xx: 92198 Global Visit Debridement Note Debridement Note Wound debrided: Ischial ulcer Laterality: Right Wound Grade/Stage: Stage IV Type of Debridement: Excisional debridement Anesthesia Used: 5% Lidocaine Gel Depth: Down to and including healthy tissue, in the subcutaneous layer and to muscle Percentage of wound debrided: 100 Instrument Used: 7mm curette Tissue Removed: Devitalized tissue and slough into the muscle Severity: Fat Layer Exposed Amount of bleeding with debridement: Mild Bleeding Controlled with: Pressure and Compression and gauze Patient tolerated procedure: Patient tolerated procedure well Debridement Free Text: Ulcer into the muscle, bone almost completely covered. Small piece of bone eroded through the tissue and came off during debridement. Post-Debridement Measurements and Additional Note: Post-Debridement Measurements/Treatment - Nurse 1 - General Ulcer Assessment Start: 06/30/22 08:16 Freq: Status: Active Protocol: DILCIA.NORIS Activity Type Activity Date Activity User E-sign Co-sign Detail Recorded Client Recorded Date Recorded By Document 06/30/22 08:16 DL [id number] 06/30/22 08:24 DL 06/30/22 08:16 - Today's Visit Information Type of service Follow-up Visit (Physician/OUTSIDE SALES ACCOUNT REPRESENTATIVE ) Arrival Mode Wheelchair Transfer Assistance Billy Lift Patient Identification Verified (Name & Yes ) Patient Requires Transmission-Based No Precautions Height and Weight Body Mass Index (BMI) 35.5 BMI Classification Obese Vital Signs Temperature (97.8 F-99.1 F) 96.1 F L Temperature Source Temporal Pulse Rate (60-100) 86 Pulse Location Monitor Respiratory Rate (12-18) 20 H Blood Pressure (90/60-120/80) 133/83 H Blood Pressure Mean (mm Hg) 99 Source Monitor History Since Last Visit- (Skip if this is Patient's initial visit) Have you changed medications since your No last visit? Any new allergies or adverse reactions No Had a fall/change in ADL's that may No increase risk of falls Signs or symptoms of abuse and/or No neglect since last visit Have you been in the hospital since your No last visit? Has dressing in place as prescribed Yes Has compression in place as prescribed N/A Has offloadiing in place as prescribed Yes Experienced any changes in pain level or No management Pain Scale: 0-10 Numeric Is Patient Pain Free? Yes WC - Nurse 1 - General Ulcer Measurement Start: 06/30/22 08:16 Freq: Status: Active Protocol: Activity Type Activity Date Activity User E-sign Co-sign Detail Recorded Client Recorded Date Recorded By Document 06/30/22 08:16 DL [id number] 06/30/22 08:24 DL 06/30/22 08:16 Wound Center Nurse 1 #5- R ischium -Current Size (cm) - Length 5 -Current Size (cm) - Width 6 -Current Size (cm) - Depth 4.4 -Total Square Cm 30 -Photo Taken Yes -Exudate Amt Small -Exudate Type Serosanguineous -Wound Margin Distinct, Outline Attached -Granulation Amt Large (67-100%) -Granulation Quality Red -Necrosis Amt Small (1-33%) -Necrotic Tissue Type Adherent Slough -Structure Exposed N/A -Texture (Michelle-wound Skin Appearance) Scarring -Moisture (Michelle-wound Skin Appearance) No Abnormality -Color (Michelle-wound Skin Appearance) No Abnormality -Temperature (Michelle-wound Skin No Abnormality Appearance) (Pt Warm) -Tenderness on Palpation (Michelle-wound No Skin Appearance) -Ulcer Cleansing Soap and Water -Foul Odor after Cleansing No -Anesthetic Used 5% Lidocaine Gel WC - Nurse 2 - General Ulcer CM Notes Start: 06/30/22 08:16 Freq: Status: Active Protocol: Activity Type Activity Date Activity User E-sign Co-sign Detail Recorded Client Recorded Date Recorded By Document 06/30/22 09:08 ESTER [id number] 06/30/22 09:16 ESTER 06/30/22 09:08 Wound Center Nurse 2 -Time 09:10 -Correct Patient Yes -Correct Side, Site, Position Yes -Correct Procedure Yes -Procedure Performed Yes -Type of Procedure Debridement -Clinical Debridement Muscle / Fascia -Tissue Removed Muscle -Post Debridement (cm) - Length 7 -Post Debridement (cm) - Width 5 -Post Debridement (cm) - Depth 3.7 -Total Square (Post) (cm) 35 -Area of Debridement (cm) - Length 7 -Area of Debridement (cm) - Width 5 -Total Square (Area) (cm) 35 -Tunneling No -Undermining/Tunneling Yes -Undermining/Tunneling Starts (O'clock 12 ) -Undermining/Tunneling Ends (O'clock) 3 -Maximum Distance (cm) 5.5 -Circular Undermining No -Wound/Ulcer Outcome Not Healed -Ulcer Cleansing Rinsed/ Irrigated with Saline -Foul Odor after Cleansing No -Bioengineered Tissue No -Bleeding Controlled with Pressure -Treatment Response Procedure Tolerated Well -Offloading No -Pressure Reduction Wheelchair cushion -Debridement - Muscle / Fascia, 1st Yes 20sq cm Pain Scale: 0-10 Numeric Is Patient Pain Free? Yes - Nurse 3 - General Ulcer D/C NN Start: 06/30/22 08:16 Freq: Status: Active Protocol: Activity Type Activity Date Activity User E-sign Co-sign Detail Recorded Client Recorded Date Recorded By Document 06/30/22 09:31 PL [id number] 06/30/22 09:32 PL 06/30/22 09:31 Wound Care Center Nurse 3 #5- R ischium -Ulcer Cleansing Rinsed/ Irrigated with Saline -Foul Odor after Cleansing No -Primary Dressing Applied Other -Other Dressing Dakins, ABD -Primary Dressing Covered/Secured with Secured with Tape Pain Scale: 0-10 Numeric Is Patient Pain Free? Yes - Visit Discharge Discharge Condition Stable Ambulatory Status Wheelchair Assessment/Plan Assessment/Plan (1) Right ischial pressure sore, stage 4: CODE(S): L89.314 - Pressure ulcer of right buttock, stage 4 (2) Osteomyelitis of right side of pelvis: CODE(S): M86.9 - Osteomyelitis, unspecified (3) Bedridden: CODE(S): Z74.01 - Bed confinement status (4) Smoker: CODE(S): F17.200 - Nicotine dependence, unspecified, uncomplicated PLAN: Plan Patient evaluated at the wound center today. Wound care - Dakins 0.25% moistened gauze covered by ABD/super absorber daily and as needed. They have home health to help assist with his dressing changes. Operative tissue cultures positive for MSSA and Cutibacterium acnes. Bone cultures positive for MSSA and Corynebacterium striatum. He is being treated with Augmentin. He was seen in the ED on 05/02/22 because of a couple falls he experienced since his surgery. CT of his pelvis showed some bony disruption at the level of the inferior pubic ramus suggests a mild osteomyelitis. Prealbumin 13.4 on 04/29/22. Anticipate increased metabolic demands from the infection. Encourage nutritional supplementation with protein to help the healing process. He had a colonscopy by Dr. Romero on 06/18/22. Patient is trying to decide if he wants to have a colostomy. He has home health to assist with wound care. Follow up two weeks. Call or come in sooner if needed.
[2022-07-14 08:21] VITALS: BP 118/67; PULSE 84; RESP 18; TEMP 36; BMI 35.5
--- NOTE | 2022-07-14 12:06 | PN.PCM_ITS ---
History of Present Illness Date of Service: 07/14/22 Chief Complaint: Right ischial pressure sore, Stage IV. History of Wound: This is a 66-year-old white male who presented to the wound healing center with complaints of pressure ulcer to right buttock area with extension to the right ischial bone. This started in October,. Patient's was treating with OTC creams and keeping area clean. The ulcer starting increasing in size and went to the Emergency Department on 02/08/22. CT showed subcutaneous and deep soft tissue involvement and possible early abscess formation. The bone was not addressed. He had a wound culture on 02/28/22. It was positive for E. coli, Staphylococcus aureus, and Clostridium perfringens. He was treated with Augmentin. The patient has very limited mobility as a result of a prior spine injury/surgery. He utilizes a wheelchair at all times and requires a billy lift to transfer to cot here. He sits in his wheelchair almost all day, not really able to change positions. They finally obtained a low air loss overlay to their regular mattress at home. A roho cushion was ordered for his wheelchair. Patient is a smoker. Surgery 04/28/22 - Excision right ischial pressure sore, Stage IV, with partial ostectomy for osteomyelitis. Size of wound 8 x 7 x 4.5 cm. Operative tissue cultures positive for MSSA and Cutibacterium acnes. Bone cultures positive for MSSA and Corynebacterium striatum. He is being treated with Augmentin. Prealbumin 13.4 on 04/29/22. He was seen in the ED on 05/02/22 because of a couple falls he experienced since his surgery. CT of his pelvis showed some bony disruption at the level of the inferior pubic ramus suggests a mild osteomyelitis. Anticipate increased metabolic demands from the infection. Encourage nutritional supplementation with protein to help the healing process. Today he denies fever. His appetite is ok. Progress of Wound: Ulcer is beefy pink. The ulcer is into the muscle with minimal bone exposure. Ulcer has slightly improved. He is having increased pain in his ulcer. The patient has decided to have a colostomy placed. Objective Data Objective Data Vital Signs: Vital Signs Temp Pulse Resp BP 96.8 F L 84 18 118/67 07/14/22 08:21 07/14/22 08:21 07/14/22 08:21 07/14/22 08:21 Weight: 220 lb Body Mass Index (BMI) 35.5 Charges/Coding Procedures Integumentary 111xxx-113xx: 26992 Global Visit Debridement Note Debridement Note Wound debrided: Ischial ulcer Laterality: Right Wound Grade/Stage: Stage IV Type of Debridement: Excisional debridement Anesthesia Used: 5% Lidocaine Gel Depth: Down to and including healthy tissue, in the subcutaneous layer and to muscle Percentage of wound debrided: 100 Instrument Used: 7mm curette Tissue Removed: Devitalized tissue and slough into the muscle Severity: Fat Layer Exposed Amount of bleeding with debridement: Mild Bleeding Controlled with: Pressure and Compression and gauze Patient tolerated procedure: Patient tolerated procedure well Debridement Free Text: Ulcer into the muscle, minimal bone exposure. Post-Debridement Measurements and Additional Note: Post-Debridement Measurements/Treatment WC - Nurse 1 - General Ulcer Assessment Start: 06/30/22 08:16 Freq: Status: Active Protocol: KIRA Activity Type Activity Date Activity User E-sign Co-sign Detail Recorded Client Recorded Date Recorded By Document 06/30/22 08:16 DL [id number] 06/30/22 08:24 DL Document 07/14/22 08:21 DL [id number] 07/14/22 08:29 DL 06/30/22 07/14/22 08:16 08:21 WC - Today's Visit Information Type of service Follow-up Visit Follow-up Visit (Physician/RETAIL SOLAR ADVISOR (Physician/RETAIL SOLAR ADVISOR ) ) Arrival Mode Wheelchair Wheelchair Transfer Assistance Billy Lift Manual Transfer Assist (Other) x2 Patient Identification Verified (Name & Yes Yes ) Patient Requires Transmission-Based No No Precautions Height and Weight Body Mass Index (BMI) 35.5 35.5 BMI Classification Obese Obese Vital Signs Temperature (97.8 F-99.1 F) 96.1 F L 96.8 F L Temperature Source Temporal Temporal Pulse Rate (60-100) 86 84 Pulse Location Monitor Monitor Respiratory Rate (12-18) 20 H 18 Respiratory rate source Observation Blood Pressure (90/60-120/80) 133/83 H 118/67 Blood Pressure Mean (mm Hg) 99 84 Source Monitor Monitor History Since Last Visit- (Skip if this is Patient's initial visit) Have you changed medications since your No No last visit? Any new allergies or adverse reactions No No Had a fall/change in ADL's that may No No increase risk of falls Signs or symptoms of abuse and/or No No neglect since last visit Have you been in the hospital since your No No last visit? Has dressing in place as prescribed Yes Yes Has compression in place as prescribed N/A N/A Has offloadiing in place as prescribed Yes Yes Experienced any changes in pain level or No No management Pain Scale: 0-10 Numeric Is Patient Pain Free? Yes Yes WC - Nurse 1 - General Ulcer Measurement Start: 06/30/22 08:16 Freq: Status: Active Protocol: Activity Type Activity Date Activity User E-sign Co-sign Detail Recorded Client Recorded Date Recorded By Document 06/30/22 08:16 DL [id number] 06/30/22 08:24 DL Document 07/14/22 08:21 DL [id number] 07/14/22 08:29 DL 06/30/22 07/14/22 08:16 08:21 Wound Center Nurse 1 #5- R ischium -Current Size (cm) - Length 5 7 -Current Size (cm) - Width 6 4.5 -Current Size (cm) - Depth 4.4 4 -Total Square Cm 30 31.5 -Photo Taken Yes Yes -Exudate Amt Small Medium -Exudate Type Serosanguineous Serosanguineous -Wound Margin Distinct, Distinct, Outline Outline Attached Attached -Granulation Amt Large (67-100%) Large (67-100%) -Granulation Quality Red Red -Necrosis Amt Small (1-33%) Small (1-33%) -Necrotic Tissue Type Adherent Slough Adherent Slough -Structure Exposed N/A N/A -Texture (Michelle-wound Skin Appearance) Scarring Scarring -Moisture (Michelle-wound Skin Appearance) No Abnormality Dry/Scaly -Color (Michelle-wound Skin Appearance) No Abnormality Hemosiderin Staining -Temperature (Michelle-wound Skin No Abnormality No Abnormality Appearance) (Pt Warm) (Pt Warm) -Tenderness on Palpation (Michelle-wound No No Skin Appearance) -Ulcer Cleansing Soap and Water Soap and Water -Foul Odor after Cleansing No No -Anesthetic Used 5% Lidocaine 5% Lidocaine Gel Gel WC - Nurse 2 - General Ulcer CM Notes Start: 06/30/22 08:16 Freq: Status: Active Protocol: Activity Type Activity Date Activity User E-sign Co-sign Detail Recorded Client Recorded Date Recorded By Document 06/30/22 09:08 ESTER [id number] 06/30/22 09:16 JF Edit Result 06/30/22 09:08 ESTER (1) [id number] 07/01/22 06:53 PL Document 07/14/22 09:24 [id number] 07/14/22 09:31 JF (1) #5- R ischium - Debridement, Muscle/Fascia, ea addt'l => 1 20sq cm or part thereof 06/30/22 07/14/22 09:08 09:24 Wound Center Nurse 2 #5- R ischium -Time 09:10 09:25 -Correct Patient Yes Yes -Correct Side, Site, Position Yes Yes -Correct Procedure Yes Yes -Procedure Performed Yes Yes -Type of Procedure Debridement Debridement -Clinical Debridement Muscle / Fascia Muscle / Fascia -Tissue Removed Muscle Muscle,Fascia -Post Debridement (cm) - Length 7 7.5 -Post Debridement (cm) - Width 5 4.8 -Post Debridement (cm) - Depth 3.7 3.7 -Total Square (Post) (cm) 35 36.00 -Area of Debridement (cm) - Length 7 7.5 -Area of Debridement (cm) - Width 5 4.8 -Total Square (Area) (cm) 35 36.00 -Tunneling No No -Undermining/Tunneling Yes Yes -Undermining/Tunneling Starts (O'clock 12 12 ) -Undermining/Tunneling Ends (O'clock) 3 3 -Maximum Distance (cm) 5.5 5.7 -Circular Undermining No No -Wound/Ulcer Outcome Not Healed Not Healed -Ulcer Cleansing Rinsed/ Rinsed/ Irrigated with Irrigated with Saline Saline -Foul Odor after Cleansing No No -Bioengineered Tissue No No -Bleeding Controlled with Pressure Pressure -Treatment Response Procedure Procedure Tolerated Well Tolerated Well -Offloading No No -Pressure Reduction Wheelchair cushion -Debridement - Muscle / Fascia, 1st Yes Yes 20sq cm -Debridement, Muscle/Fascia, ea addt'l 1 20sq cm or part thereof Pain Scale: 0-10 Numeric Is Patient Pain Free? Yes Yes WC - Nurse 3 - General Ulcer D/C NN Start: 06/30/22 08:16 Freq: Status: Active Protocol: Activity Type Activity Date Activity User E-sign Co-sign Detail Recorded Client Recorded Date Recorded By Document 06/30/22 09:31 PL [id number] 06/30/22 09:32 PL Document 07/14/22 09:47 DL [id number] 07/14/22 09:47 DL 06/30/22 07/14/22 09:31 09:47 Wound Care Center Nurse 3 #5- R ischium -Ulcer Cleansing Rinsed/ Rinsed/ Irrigated with Irrigated with Saline Saline -Foul Odor after Cleansing No No -Primary Dressing Applied Other -Other Dressing Dakins, ABD dakins -Primary Dressing Covered/Secured with Secured with Dry Gauze, Tape Secured with Tape -Other Covering ABD Treatment Response Procedure Tolerated Well Pain Scale: 0-10 Numeric Is Patient Pain Free? Yes Yes WC - Visit Discharge Discharge Condition Stable Stable Ambulatory Status Wheelchair Wheelchair Transportation Trans Facility Type Home Health Orders Sent Yes Assessment/Plan Assessment/Plan (1) Right ischial pressure sore, stage 4: CODE(S): L89.314 - Pressure ulcer of right buttock, stage 4 (2) Osteomyelitis of right side of pelvis: CODE(S): M86.9 - Osteomyelitis, unspecified (3) Bedridden: CODE(S): Z74.01 - Bed confinement status (4) Smoker: CODE(S): F17.200 - Nicotine dependence, unspecified, uncomplicated PLAN: Plan Patient evaluated at the wound center today. Wound care - Dakins 0.25% moistened gauze covered by ABD/super absorber daily and as needed. They have home health to help assist with his dressing changes. He is having increased pain with debridement. A wound culture was obtained today, 07/14/22.? A positive culture will necessitate antibiotic therapy. Operative tissue cultures positive for MSSA and Cutibacterium acnes. Bone cultures positive for MSSA and Corynebacterium striatum. He is being treated with Augmentin. He was seen in the ED on 05/02/22 because of a couple falls he experienced since his surgery. CT of his pelvis showed some bony disruption at the level of the inferior pubic ramus suggests a mild osteomyelitis. Prealbumin 13.4 on 04/29/22. Anticipate increased metabolic demands from the i nfection. Encourage nutritional supplementation with protein to help the healing process. He had a colonscopy by Dr. Romero on 06/18/22. Patient has decided he will have a colostomy. He has home health to assist with wound care. Follow up two weeks. Call or come in sooner if needed.
--- NOTE | 2022-07-22 09:05 | WC ---
Kemi Rubio [employer] called letting us know that she called in Augmentin to [facility] due to patient's positive wound cultures. Called and spoke to patient's Dasia to inform her about this update. She verbalized understanding and states she will get in pick it up.
== END 2022-07-27 23:59 | disposition home or self-care (01) ==
LOC: WC 09:00
PROVIDERS: Referring Provider Physician Assistant; Visit Provider Nurse Practitioner Family
DX: L89.314 Pressure ulcer of right buttock, stage 4 (principal); M86.8X8 Other osteomyelitis, other site; F17.200 Nicotine dependence, unspecified, uncomplicated; Z74.01 Bed confinement status
CPT/HCPCS: 11043; 11046; 87070; 87075; 87077; 87186; 87205

== ENCOUNTER 2022-08-18 09:00 | Outpatient (RCR) | payer BC, MEDICARE, SELFPAY ==
[2022-07-28 00:25] VITALS: BP 118/67; PULSE 84; RESP 18; TEMP 36; BMI 35.5
[2022-07-28 09:10] VITALS: BP 115/61; PULSE 76; RESP 20; TEMP 36.4; BMI 35.5
--- NOTE | 2022-07-28 12:17 | PCM.WC.PN ---
History of Present Illness Date of Service: 07/28/22 Chief Complaint: Right ischial pressure sore, Stage IV. History of Wound: This is a 66-year-old white male who presented to the wound healing center with complaints of pressure ulcer to right buttock area with extension to the right ischial bone. This started in October,. Patient's was treating with OTC creams and keeping area clean. The ulcer starting increasing in size and went to the Emergency Department on 02/08/22. CT showed subcutaneous and deep soft tissue involvement and possible early abscess formation. The bone was not addressed. He had a wound culture on 02/28/22. It was positive for E. coli, Staphylococcus aureus, and Clostridium perfringens. He was treated with Augmentin. The patient has very limited mobility as a result of a prior spine injury/surgery. He utilizes a wheelchair at all times and requires a billy lift to transfer to cot here. He sits in his wheelchair almost all day, not really able to change positions. They finally obtained a low air loss overlay to their regular mattress at home. A roho cushion was ordered for his wheelchair. Patient is a smoker. Surgery 04/28/22 - Excision right ischial pressure sore, Stage IV, with partial ostectomy for osteomyelitis. Size of wound 8 x 7 x 4.5 cm. Operative tissue cultures positive for MSSA and Cutibacterium acnes. Bone cultures positive for MSSA and Corynebacterium striatum. He is being treated with Augmentin. Wound culture from 07/14/22 positive for Staphylococcus aureus and he was treated with Augmentin. Prealbumin 13.4 on 04/29/22. He was seen in the ED on 05/02/22 because of a couple falls he experienced since his surgery. CT of his pelvis showed some bony disruption at the level of the inferior pubic ramus suggests a mild osteomyelitis. Anticipate increased metabolic demands from the infection. Encourage nutritional supplementation with protein to help the healing process. Today he denies fever. His appetite is ok. Progress of Wound: Ulcer is beefy pink. The ulcer is into the muscle with bone almost completely covered. Ulcer has slightly improved. The patient has decided to have a colostomy placed, he waiting for the surgery to be scheduled. Objective Data Objective Data Vital Signs: Vital Signs Temp Pulse Resp BP 97.5 F L 76 20 H 115/61 07/28/22 09:10 07/28/22 09:10 07/28/22 09:10 07/28/22 09:10 Weight: 220 lb Body Mass Index (BMI) 35.5 Charges/Coding Procedures Integumentary 111xxx-113xx: 40805 Lillian musc/fascia 20 sq cm/< Add On Codes: 54504 Lillian musc/fascia add-on Debridement Note Debridement Note Wound debrided: Ischial ulcer Laterality: Right Wound Grade/Stage: Stage IV Type of Debridement: Excisional debridement Anesthesia Used: 5% Lidocaine Gel Depth: Down to and including healthy tissue, in the subcutaneous layer and to muscle Percentage of wound debrided: 100 Instrument Used: 7mm curette Tissue Removed: Devitalized tissue and slough into the muscle Severity: Fat Layer Exposed Amount of bleeding with debridement: Mild Bleeding Controlled with: Pressure and Compression and gauze Patient tolerated procedure: Patient tolerated procedure well Debridement Free Text: Ulcer into the muscle, minimal bone exposure. Post-Debridement Measurements and Additional Note: Post-Debridement Measurements/Treatment - Nurse 1 - General Ulcer Assessment Start: 07/28/22 08:57 Freq: Status: Active Protocol: DILCIA.[place] Activity Type Activity Date Activity User E-sign Co-sign Detail Recorded Client Recorded Date Recorded By Document 07/28/22 09:10 DL [id number] 07/28/22 09:13 DL 07/28/22 09:10 - Today's Visit Information Type of service Follow-up Visit (Physician/FLUID PUMP OPERATOR ) Arrival Mode Wheelchair Transfer Assistance Billy Lift Patient Identification Verified (Name & Yes ) Patient Requires Transmission-Based No Precautions Height and Weight Body Mass Index (BMI) 35.5 BMI Classification Obese Vital Signs Temperature (97.8 F-99.1 F) 97.5 F L Temperature Source Temporal Pulse Rate (60-100) 76 Pulse Location Monitor Respiratory Rate (12-18) 20 H Respiratory rate source Observation Blood Pressure (90/60-120/80) 115/61 Blood Pressure Mean (mm Hg) 79 Source Monitor History Since Last Visit- (Skip if this is Patient's initial visit) Have you changed medications since your No last visit? Any new allergies or adverse reactions No Had a fall/change in ADL's that may No increase risk of falls Signs or symptoms of abuse and/or No neglect since last visit Have you been in the hospital since your No last visit? Has dressing in place as prescribed Yes Has compression in place as prescribed N/A Has offloadiing in place as prescribed Yes Experienced any changes in pain level or No management Pain Scale: 0-10 Numeric Is Patient Pain Free? Yes WC - Nurse 1 - General Ulcer Measurement Start: 07/28/22 08:57 Freq: Status: Active Protocol: Activity Type Activity Date Activity User E-sign Co-sign Detail Recorded Client Recorded Date Recorded By Document 07/28/22 09:10 [id number] 07/28/22 09:13 DL 07/28/22 09:10 Wound Center Nurse 1 #5- R ischium -Current Size (cm) - Length 6 -Current Size (cm) - Width 5.8 -Current Size (cm) - Depth 4 -Total Square Cm 34.8 -Photo Taken No -Exudate Amt Medium -Exudate Type Serosanguineous -Wound Margin Distinct, Outline Attached -Granulation Amt Large (67-100%) -Granulation Quality Red -Necrosis Amt None Present (0 %) -Structure Exposed N/A -Texture (Michelle-wound Skin Appearance) Scarring -Moisture (Michelle-wound Skin Appearance) No Abnormality -Color (Michelle-wound Skin Appearance) No Abnormality -Temperature (Michelle-wound Skin No Abnormality Appearance) (Pt Warm) -Tenderness on Palpation (Michelle-wound No Skin Appearance) -Ulcer Cleansing Soap and Water -Foul Odor after Cleansing No -Anesthetic Used 4% Lidocaine Solution WC - Nurse 2 - General Ulcer CM Notes Start: 07/28/22 08:57 Freq: Status: Active Protocol: Activity Type Activity Date Activity User E-sign Co-sign Detail Recorded Client Recorded Date Recorded By Document 07/28/22 09:24 ESTER [id number] 07/28/22 09:26 ESTER 07/28/22 09:24 Wound Center Nurse 2 -Time 09:24 -Correct Patient Yes -Correct Side, Site, Position Yes -Correct Procedure Yes -Procedure Performed Yes -Type of Procedure Debridement -Clinical Debridement Muscle / Fascia -Tissue Removed Muscle,Fascia -Post Debridement (cm) - Length 6.0 -Post Debridement (cm) - Width 3.5 -Post Debridement (cm) - Depth 3.7 -Total Square (Post) (cm) 21.00 -Area of Debridement (cm) - Length 6.0 -Area of Debridement (cm) - Width 3.5 -Total Square (Area) (cm) 21.00 -Tunneling No -Undermining/Tunneling Yes -Undermining/Tunneling Starts (O'clock 12 ) -Undermining/Tunneling Ends (O'clock) 3 -Maximum Distance (cm) 4.0 -Circular Undermining No -Wound/Ulcer Outcome Not Healed -Ulcer Cleansing Rinsed/ Irrigated with Saline -Foul Odor after Cleansing No -Bioengineered Tissue No -Bleeding Controlled with Pressure -Treatment Response Procedure Tolerated Well -Offloading No -Debridement - Muscle / Fascia, 1st Yes 20sq cm Pain Scale: 0-10 Numeric Is Patient Pain Free? Yes - Nurse 3 - General Ulcer D/C NN Start: 07/28/22 08:57 Freq: Status: Active Protocol: Activity Type Activity Date Activity User E-sign Co-sign Detail Recorded Client Recorded Date Recorded By Document 07/28/22 09:50 PL [id number] 07/28/22 09:51 PL 07/28/22 09:50 Wound Care Center Nurse 3 #5- R ischium -Ulcer Cleansing Rinsed/ Irrigated with Saline -Foul Odor after Cleansing No -Other Dressing Sue,abd -Primary Dressing Covered/Secured with Secured with Tape Pain Scale: 0-10 Numeric Is Patient Pain Free? Yes - Visit Discharge Discharge Condition Stable Ambulatory Status Wheelchair Assessment/Plan Assessment/Plan (1) Right ischial pressure sore, stage 4: CODE(S): L89.314 - Pressure ulcer of right buttock, stage 4 (2) Osteomyelitis of right side of pelvis: CODE(S): M86.9 - Osteomyelitis, unspecified (3) Bedridden: CODE(S): Z74.01 - Bed confinement status (4) Smoker: CODE(S): F17.200 - Nicotine dependence, unspecified, uncomplicated PLAN: Plan Patient evaluated at the wound center today. Wound care - Dakins 0.25% moistened gauze covered by ABD/super absorber daily and as needed. They have home health to help assist with his dressing changes. Operative tissue cultures positive for MSSA and Cutibacterium acnes. Bone cultures positive for MSSA and Corynebacterium striatum. He is being treated with Augmentin. He was seen in the ED on 05/02/22 because of a couple falls he experienced since his surgery. CT of his pelvis showed some bony disruption at the level of the inferior pubic ramus suggests a mild osteomyelitis. Prealbumin 13.4 on 04/29/22. Anticipate increased metabolic demands from the infection. Encourage nutritional supplementation with protein to help the healing process. A wound culture was obtained on 07/14/22, which was positive for Staphylococcus aureus and was treated with Augmentin. He had a colonscopy by Dr. Romero on 06/18/22. Patient has decided he will have a colostomy, he is waiting for it to be scheduled. He has home health to assist with wound care. Follow up three weeks. Call or come in sooner if needed.
[2022-08-18 08:35] VITALS: BP 112/53; PULSE 81; RESP 16; TEMP 36.2; BMI 35.5
--- NOTE | 2022-08-18 11:31 | PCM.WC.PN ---
History of Present Illness Date of Service: 08/18/22 Chief Complaint: Right ischial pressure sore, Stage IV. History of Wound: This is a 66-year-old white male who presented to the wound healing center with complaints of pressure ulcer to right buttock area with extension to the right ischial bone. This started in October,. Patient's was treating with OTC creams and keeping area clean. The ulcer starting increasing in size and went to the Emergency Department on 02/08/22. CT showed subcutaneous and deep soft tissue involvement and possible early abscess formation. The bone was not addressed. He had a wound culture on 02/28/22. It was positive for E. coli, Staphylococcus aureus, and Clostridium perfringens. He was treated with Augmentin. The patient has very limited mobility as a result of a prior spine injury/surgery. He utilizes a wheelchair at all times and requires a billy lift to transfer to cot here. He sits in his wheelchair almost all day, not really able to change positions. They finally obtained a low air loss overlay to their regular mattress at home. A roho cushion was ordered for his wheelchair. Patient is a smoker. Surgery 04/28/22 - Excision right ischial pressure sore, Stage IV, with partial ostectomy for osteomyelitis. Size of wound 8 x 7 x 4.5 cm. Operative tissue cultures positive for MSSA and Cutibacterium acnes. Bone cultures positive for MSSA and Corynebacterium striatum. He is being treated with Augmentin. Wound culture from 07/14/22 positive for Staphylococcus aureus and he was treated with Augmentin. Prealbumin 13.4 on 04/29/22. He was seen in the ED on 05/02/22 because of a couple falls he experienced since his surgery. CT of his pelvis showed some bony disruption at the level of the inferior pubic ramus suggests a mild osteomyelitis. Anticipate increased metabolic demands from the infection. Encourage nutritional supplementation with protein to help the healing process. Today he denies fever. His appetite is ok. Progress of Wound: Ulcer is beefy pink. The ulcer is into the muscle with bone is now covered. Ulcer has slightly improved. The patient has decided to have a colostomy placed, he waiting for the surgery to be scheduled. Objective Data Objective Data Vital Signs: Vital Signs Temp Pulse Resp BP O2 Del Method 97.2 F L 81 16 112/53 L Room Air 08/18/22 08:35 08/18/22 08:35 08/18/22 08:35 08/18/22 08:35 08/18/22 08:35 Oxygen Delivery Method Room Air Weight: 220 lb Body Mass Index (BMI) 35.5 Charges/Coding Procedures Integumentary 111xxx-113xx: 01081 Lillian musc/fascia 20 sq cm/< Add On Codes: 25802 Lillian musc/fascia add-on Debridement Note Debridement Note Wound debrided: Ischial ulcer Laterality: Right Wound Grade/Stage: Stage IV Type of Debridement: Excisional debridement Anesthesia Used: 5% Lidocaine Gel Depth: Down to and including healthy tissue, in the subcutaneous layer and to muscle Percentage of wound debrided: 100 Instrument Used: 7mm curette Tissue Removed: Devitalized tissue and slough into the muscle Severity: Fat Layer Exposed Amount of bleeding with debridement: Mild Bleeding Controlled with: Pressure and Compression and gauze Patient tolerated procedure: Patient tolerated procedure well Debridement Free Text: Ulcer into the muscle, bone is now covered Post-Debridement Measurements and Additional Note: Post-Debridement Measurements/Treatment - Nurse 1 - General Ulcer Assessment Start: 07/28/22 08:57 Freq: Status: Active Protocol: KIRA Activity Type Activity Date Activity User E-sign Co-sign Detail Recorded Client Recorded Date Recorded By Document 07/28/22 09:10 DL [id number] 07/28/22 09:13 DL Document 08/18/22 08:35 [facility] [id number] 08/18/22 08:44 [facility] 07/28/22 08/18/22 09:10 08:35 - Today's Visit Information Type of service Follow-up Visit Follow-up Visit (Physician/OUTSIDE SALES ENGINEER (Physician/OUTSIDE SALES ENGINEER ) ) Arrival Mode Wheelchair Wheelchair Transfer Assistance Billy Lift Billy Lift Transfer Assist (Other) 2 Patient Identification Verified (Name & Yes Yes ) Patient Requires Transmission-Based No No Precautions Height and Weight Body Mass Index (BMI) 35.5 35.5 BMI Classification Obese Obese Vital Signs Temperature (97.8 F-99.1 F) 97.5 F L 97.2 F L Temperature Source Temporal Temporal Pulse Rate (60-100) 76 81 Pulse Location Monitor Monitor Respiratory Rate (12-18) 20 H 16 Respiratory rate source Observation Observation Oxygen Delivery Method Room Air Blood Pressure (90/60-120/80) 115/61 112/53 L Blood Pressure Mean (mm Hg) 79 72 Source Monitor Monitor Position Sitting Blood Pressure Location Right Arm History Since Last Visit- (Skip if this is Patient's initial visit) Have you changed medications since your No No last visit? Any new allergies or adverse reactions No No Had a fall/change in ADL's that may No No increase risk of falls Signs or symptoms of abuse and/or No No neglect since last visit Have you been in the hospital since your No No last visit? Has dressing in place as prescribed Yes Yes Has compression in place as prescribed N/A N/A Has offloadiing in place as prescribed Yes N/A Experienced any changes in pain level or No No management Left Footwear Regular Shoe Right Footwear Regular Shoe Pain Scale: 0-10 Numeric Is Patient Pain Free? Yes Yes WC - Nurse 1 - General Ulcer Measurement Start: 07/28/22 08:57 Freq: Status: Active Protocol: Activity Type Activity Date Activity User E-sign Co-sign Detail Recorded Client Recorded Date Recorded By Document 07/28/22 09:10 DL [id number] 07/28/22 09:13 DL Document 08/18/22 08:35 [facility] [id number] 08/18/22 08:44 BMF 07/28/22 08/18/22 09:10 08:35 Wound Center Nurse 1 #5- R ischium -Combined with other wound No -Current Size (cm) - Length 6 6.1 -Current Size (cm) - Width 5.8 4 -Current Size (cm) - Depth 4 4 -Total Square Cm 34.8 24.4 -Date of Last Picture (Recall this 08/18/22 field) -Photo Taken No Yes -Epithelialization Small 1-33% -Tunneling No -Undermining/Tunneling Yes -Undermining/Tunneling Starts (O'clock 1 ) -Undermining/Tunneling Ends (O'clock) 4 -Maximum Distance (cm) 6.2 -Circular Undermining No -Exudate Amt Medium Large -Exudate Type Serosanguineous Serosanguineous -Wound Margin Distinct, Distinct, Outline Outline Attached Attached -Granulation Amt Large (67-100%) Large (67-100%) -Granulation Quality Red Red -Slough/Fibrin Yes -Necrosis Amt None Present (0 Small (1-33%) %) -Necrotic Tissue Type Adherent Slough -Structure Exposed N/A Bone -Texture (Michelle-wound Skin Appearance) Scarring Assessed, Scarring -Moisture (Michelle-wound Skin Appearance) No Abnormality Assessed -Color (Michelle-wound Skin Appearance) No Abnormality Assessed -Temperature (Michelle-wound Skin No Abnormality No Abnormality Appearance) (Pt Warm) (Pt Warm) -Tenderness on Palpation (Michelle-wound No No Skin Appearance) -Ulcer Cleansing Soap and Water Soap and Water -Foul Odor after Cleansing No No -Anesthetic Used 4% Lidocaine 4% Lidocaine Solution Solution WC - Nurse 2 - General Ulcer CM Notes Start: 07/28/22 08:57 Freq: Status: Active Protocol: Activity Type Activity Date Activity User E-sign Co-sign Detail Recorded Client Recorded Date Recorded By Document 07/28/22 09:24 [id number] 07/28/22 09:26 JF Edit Result 07/28/22 09:24 JF (1) [id number] 07/29/22 06:33 PL Document 08/18/22 09:14 [id number] 08/18/22 09:17 JF (1) #5- R ischium - Debridement, Muscle/Fascia, ea addt'l => 1 20sq cm or part thereof 07/28/22 08/18/22 09:24 09:14 Wound Center Nurse 2 #5- R ischium -Time 09:24 09:14 -Correct Patient Yes Yes -Correct Side, Site, Position Yes Yes -Correct Procedure Yes Yes -Procedure Performed Yes Yes -Type of Procedure Debridement Debridement -Clinical Debridement Muscle / Fascia Muscle / Fascia -Tissue Removed Muscle,Fascia Muscle,Fascia -Post Debridement (cm) - Length 6.0 6.5 -Post Debridement (cm) - Width 3.5 4.5 -Post Debridement (cm) - Depth 3.7 2.8 -Total Square (Post) (cm) 21.00 29.25 -Area of Debridement (cm) - Length 6.0 6.5 -Area of Debridement (cm) - Width 3.5 4.5 -Total Square (Area) (cm) 21.00 29.25 -Tunneling No No -Undermining/Tunneling Yes Yes -Undermining/Tunneling Starts (O'clock 12 12 ) -Undermining/Tunneling Ends (O'clock) 3 3 -Maximum Distance (cm) 4.0 5.1 -Circular Undermining No No -Wound/Ulcer Outcome Not Healed Not Healed -Ulcer Cleansing Rinsed/ Rinsed/ Irrigated with Irrigated with Saline Saline -Foul Odor after Cleansing No No -Bioengineered Tissue No No -Bleeding Controlled with Pressure Pressure -Treatment Response Procedure Procedure Tolerated Well Tolerated Well -Offloading No No -Pressure Reduction Wheelchair cushion -Debridement - Muscle / Fascia, 1st Yes Yes 20sq cm -Debridement, Muscle/Fascia, ea addt'l 1 1 20sq cm or part thereof Pain Scale: 0-10 Numeric Is Patient Pain Free? Yes Yes - Nurse 3 - General Ulcer D/C NN Start: 07/28/22 08:57 Freq: Status: Active Protocol: Activity Type Activity Date Activity User E-sign Co-sign Detail Recorded Client Recorded Date Recorded By Document 07/28/22 09:50 PL [id number] 07/28/22 09:51 PL Document 08/18/22 09:21 [facility] [id number] 08/18/22 09:22 [facility] 07/28/22 08/18/22 09:50 09:21 Wound Care Center Nurse 3 #5- R ischium -Ulcer Cleansing Rinsed/ Rinsed/ Irrigated with Irrigated with Saline Saline -Foul Odor after Cleansing No No -Primary Dressing Applied Hysept ($) -Other Dressing dav Rogers moist gauze; per ak assurance engineer -Primary Dressing Covered/Secured with Secured with Secured with Tape Tape -Other Covering abd Treatment Response Procedure Tolerated Well Pain Scale: 0-10 Numeric Is Patient Pain Free? Yes Yes - Visit Discharge Discharge Condition Stable Stable Ambulatory Status Wheelchair Wheelchair Transportation transport Facility Type Home Health Assessment/Plan Assessment/Plan (1) Right ischial pressure sore, stage 4: CODE(S): L89.314 - Pressure ulcer of right buttock, stage 4 (2) Osteomyelitis of right side of pelvis: CODE(S): M86.9 - Osteomyelitis, unspecified (3) Bedridden: CODE(S): Z74.01 - Bed confinement status (4) Smoker: CODE(S): F17.200 - Nicotine dependence, unspecified, uncomplicated PLAN: Plan Patient evaluated at the wound center today. Wound care - Dakins 0.25% moistened gauze covered by ABD/super absorber daily and as needed. They have home health to help assist with his dressing changes. Operative tissue cultures positive for MSSA and Cutibacterium acnes. Bone cultures positive for MSSA and Corynebacterium striatum. He is being treated with Augmentin. He was seen in the ED on 05/02/22 because of a couple falls he experienced since his surgery. CT of his pelvis showed some bony disruption at the level of the inferior pubic ramus suggests a mild osteomyelitis. Prealbumin 13.4 on 04/29/22. Anticipate increased metabolic demands from the infection. Encourage nutritional supplementation with protein to help the healing process. A wound culture was obtained on 07/14/22, which was positive for Staphylococcus aureus and was treated with Augmentin. He had a colonscopy by Dr. Romero on 06/18/22. Patient has decided he will have a colostomy, he is waiting for it to be scheduled. He has home health to assist with wound care. Follow up three weeks. Call or come in sooner if needed.
== END 2022-08-27 23:59 | disposition home or self-care (01) ==
LOC: WC 09:00
PROVIDERS: Referring Provider Physician Assistant; Visit Provider Nurse Practitioner Family
DX: L89.314 Pressure ulcer of right buttock, stage 4 (principal); M86.9 Osteomyelitis, unspecified; F17.200 Nicotine dependence, unspecified, uncomplicated; Z74.01 Bed confinement status; B95.61 Methicillin susceptible Staphylococcus aureus infection as the cause of diseases classified elsewhere
CPT/HCPCS: 11043; 11046

== ENCOUNTER 2022-09-15 09:00 | Outpatient (RCR) | payer BC, MEDICARE, SELFPAY ==
[2022-08-28 00:23] VITALS: BP 112/53; PULSE 81; RESP 16; TEMP 36.2; BMI 35.5
[2022-09-01 09:10] VITALS: BP 143/71; PULSE 84; RESP 20; TEMP 32.7; BMI 35.5
--- NOTE | 2022-09-01 13:00 | PN.PCM_ITS ---
History of Present Illness Date of Service: 09/01/22 Chief Complaint: Right ischial pressure sore, Stage IV. History of Wound: This is a 67-year-old white male who presented to the wound healing center with complaints of pressure ulcer to right buttock area with extension to the right ischial bone. This started in October,. Patient's was treating with OTC creams and keeping area clean. The ulcer starting increasing in size and went to the Emergency Department on 02/08/22. CT showed subcutaneous and deep soft tissue involvement and possible early abscess formation. The bone was not addressed. He had a wound culture on 02/28/22. It was positive for E. coli, Staphylococcus aureus, and Clostridium perfringens. He was treated with Augmentin. The patient has very limited mobility as a result of a prior spine injury/surgery. He utilizes a wheelchair at all times. He has not been using his billy lift at home to transfer but has been using a board to slide himself from his bed to chair at home. He sits in his wheelchair almost all day, not really able to change positions. They finally obtained a low air loss overlay to their regular mattress at home. A roho cushion was ordered for his wheelchair. Patient is a smoker. Surgery 04/28/22 - Excision right ischial pressure sore, Stage IV, with partial ostectomy for osteomyelitis. Size of wound 8 x 7 x 4.5 cm. Operative tissue cultures positive for MSSA and Cutibacterium acnes. Bone cultures positive for MSSA and Corynebacterium striatum. He is being treated with Augmentin. Wound culture from 07/14/22 positive for Staphylococcus aureus and he was treated with Augmentin. Prealbumin 13.4 on 04/29/22. He was seen in the ED on 05/02/22 because of a couple falls he experienced since his surgery. CT of his pelvis showed some bony disruption at the level of the inferior pubic ramus suggests a mild osteomyelitis. Anticipate increased metabolic demands from the infection. Encourage nutritional supplementation with protein to help the healing process. Today he denies fever. His appetite is ok. Progress of Wound: Ulcer is beefy pink. The ulcer is into the muscle with bone palpable this week. Ulcer is stable. The patient has decided to have a colostomy plac ed, he follows up with the surgeon soon. Objective Data Objective Data Vital Signs: Vital Signs Temp Pulse Resp BP 91 F L 84 20 H 143/71 H 09/01/22 09:10 09/01/22 09:10 09/01/22 09:10 09/01/22 09:10 Weight: 220 lb Body Mass Index (BMI) 35.5 Charges/Coding Procedures Integumentary 111xxx-113xx: 88184 Lillian musc/fascia 20 sq cm/< Add On Codes: 11455 Lillian musc/fascia add-on Debridement Note Debridement Note Wound debrided: Ischial ulcer Laterality: Right Wound Grade/Stage: Stage IV Type of Debridement: Excisional debridement Anesthesia Used: 5% Lidocaine Gel Depth: Down to and including healthy tissue, in the subcutaneous layer and to muscle Percentage of wound debrided: 100 Instrument Used: 7mm curette Tissue Removed: Devitalized tissue and slough into the muscle Severity: Fat Layer Exposed Amount of bleeding with debridement: Mild Bleeding Controlled with: Pressure and Compression and gauze Patient tolerated procedure: Patient tolerated procedure well Debridement Free Text: Ulcer into the muscle, bone is palpable today. Post-Debridement Measurements and Additional Note: Post-Debridement Measurements/Treatment - Nurse 1 - General Ulcer Assessment Start: 09/01/22 09:10 Freq: Status: Active Protocol: KIRA Activity Type Activity Date Activity User E-sign Co-sign Detail Recorded Client Recorded Date Recorded By Document 09/01/22 09:10 [id number] 09/01/22 09:22 DL 09/01/22 09:10 - Today's Visit Information Type of service Follow-up Visit (Physician/HEAD WAITER ) Arrival Mode Wheelchair Transfer Assistance Billy Lift,None Patient Identification Verified (Name & Yes ) Patient Requires Transmission-Based No Precautions Height and Weight Body Mass Index (BMI) 35.5 BMI Classification Obese Vital Signs Temperature (97.8 F-99.1 F) 91 F L Temperature Source Temporal Pulse Rate (60-100) 84 Pulse Location Monitor Respiratory Rate (12-18) 20 H Respiratory rate source Observation Blood Pressure (90/60-120/80) 143/71 H Blood Pressure Mean (mm Hg) 95 Source Monitor History Since Last Visit- (Skip if this is Patient's initial visit) Have you changed medications since your No last visit? Any new allergies or adverse reactions No Had a fall/change in ADL's that may No increase risk of falls Signs or symptoms of abuse and/or No neglect since last visit Have you been in the hospital since your No last visit? Has dressing in place as prescribed Yes Has compression in place as prescribed N/A Has offloadiing in place as prescribed Yes Experienced any changes in pain level or No management Pain Scale: 0-10 Numeric Is Patient Pain Free? Yes - Nurse 1 - General Ulcer Measurement Start: 09/01/22 09:10 Freq: Status: Active Protocol: Activity Type Activity Date Activity User E-sign Co-sign Detail Recorded Client Recorded Date Recorded By Document 09/01/22 09:10 [id number] 09/01/22 09:22 DL 09/01/22 09:10 Wound Center Nurse 1 #5- R ischium -Current Size (cm) - Length 5.2 -Current Size (cm) - Width 3.8 -Current Size (cm) - Depth 5.8 -Total Square Cm 19.76 -Photo Taken Yes -Tunneling No -Undermining/Tunneling No -Circular Undermining No -Change in Wound Grade/Stage No -Exudate Amt Large -Exudate Type Serosanguineous -Wound Margin Distinct, Outline Attached -Granulation Amt Large (67-100%) -Granulation Quality Red -Slough/Fibrin Yes -Necrosis Amt Small (1-33%) -Necrotic Tissue Type Adherent Slough -Structure Exposed N/A -Texture (Michelle-wound Skin Appearance) Assessed, Scarring -Moisture (Michelle-wound Skin Appearance) Assessed, Maceration -Color (Michelle-wound Skin Appearance) No Abnormality, Assessed -Temperature (Michelle-wound Skin No Abnormality Appearance) (Pt Warm) -Tenderness on Palpation (Michelle-wound No Skin Appearance) -Ulcer Cleansing Soap and Water -Foul Odor after Cleansing No -Anesthetic Used 4% Lidocaine Solution - Nurse 2 - General Ulcer CM Notes Start: 09/01/22 09:10 Freq: Status: Active Protocol: Activity Type Activity Date Activity User E-sign Co-sign Detail Recorded Client Recorded Date Recorded By Document 09/01/22 09:52 ESTER [id number] 09/01/22 09:55 ESTER 09/01/22 09:52 Wound Center Nurse 2 -Time 09:52 -Correct Patient Yes -Correct Side, Site, Position Yes -Correct Procedure Yes -Procedure Performed Yes -Type of Procedure Debridement -Clinical Debridement Muscle / Fascia -Tissue Removed Muscle,Fascia -Post Debridement (cm) - Length 6.3 -Post Debridement (cm) - Width 4.5 -Post Debridement (cm) - Depth 3.9 -Total Square (Post) (cm) 28.35 -Area of Debridement (cm) - Length 6.3 -Area of Debridement (cm) - Width 4.5 -Total Square (Area) (cm) 28.35 -Tunneling No -Undermining/Tunneling Yes -Undermining/Tunneling Starts (O'clock 12 ) -Undermining/Tunneling Ends (O'clock) 3 -Maximum Distance (cm) 5.0 -Circular Undermining No -Wound/Ulcer Outcome Not Healed -Ulcer Cleansing Rinsed/ Irrigated with Saline -Foul Odor after Cleansing No -Bioengineered Tissue No -Bleeding Controlled with Pressure -Treatment Response Procedure Tolerated Well -Offloading No -Pressure Reduction Wheelchair cushion -Debridement - Muscle / Fascia, 1st Yes 20sq cm -Debridement, Muscle/Fascia, ea addt'l 1 20sq cm or part thereof Pain Scale: 0-10 Numeric Is Patient Pain Free? Yes - Nurse 3 - General Ulcer D/C NN Start: 09/01/22 09:10 Freq: Status: Active Protocol: Activity Type Activity Date Activity User E-sign Co-sign Detail Recorded Client Recorded Date Recorded By Document 09/01/22 10:09 [facility] [id number] 09/01/22 10:10 [facility] 09/01/22 10:09 Wound Care Center Nurse 3 #5- R ischium -Ulcer Cleansing Rinsed/ Irrigated with Saline -Foul Odor after Cleansing No -Other Dressing dakins moist gauze -Primary Dressing Covered/Secured with Secured with Tape -Other Covering abd Treatment Response Procedure Tolerated Well Pain Scale: 0-10 Numeric Is Patient Pain Free? Yes - Visit Discharge Discharge Condition Stable Ambulatory Status Wheelchair Transportation transport Facility Type Home Health Assessment/Plan Assessment/Plan (1) Right ischial pressure sore, stage 4: CODE(S): L89.314 - Pressure ulcer of right buttock, stage 4 (2) Osteomyelitis of right side of pelvis: CODE(S): M86.9 - Osteomyelitis, unspecified (3) Smoker: CODE(S): F17.200 - Nicotine dependence, unspecified, uncomplicated (4) Wheelchair dependent: CODE(S): Z99.3 - Dependence on wheelchair PLAN: Plan Patient evaluated at the wound center today. Wound care - Dakins 0.25% moistened gauze covered by ABD/super absorber daily and as needed. They have home health to help assist with his dressing changes. Operative tissue cultures positive for MSSA and Cutibacterium acnes. Bone cultures positive for MSSA and Corynebacterium striatum. He is being treated with Augmentin. He was seen in the ED on 05/02/22 because of a couple falls he experienced since his surgery. CT of his pelvis showed some bony disruption at the level of the inferior pubic ramus suggests a mild osteomyelitis. Prealbumin 13.4 on 04/29/22. Anticipate increased metabolic demands from the infection. Encourage nutritional supplementation with protein to help the healing process. A wound culture was obtained on 07/14/22, which was positive for Staphylococcus aureus and was treated with Augmentin. He had a colonscopy by Dr. Romero on 06/18/22. Patient has decided he will have a colostomy, he is waiting for it to be scheduled. He has home health to assist with wound care. Follow up two weeks. Call or come in sooner if needed.
[2022-09-15 08:09] VITALS: BP 120/56; PULSE 76; RESP 16; TEMP 35.7; BMI 35.5
--- NOTE | 2022-09-15 09:24 | PCM.WC.PN ---
History of Present Illness Date of Service: 09/15/22 Chief Complaint: Right ischial pressure sore, Stage IV. History of Wound: This is a 67-year-old white male who presented to the wound healing center with complaints of pressure ulcer to right buttock area with extension to the right ischial bone. This started in October,. Patient's was treating with OTC creams and keeping area clean. The ulcer starting increasing in size and went to the Emergency Department on 02/08/22. CT showed subcutaneous and deep soft tissue involvement and possible early abscess formation. The bone was not addressed. He had a wound culture on 02/28/22. It was positive for E. coli, Staphylococcus aureus, and Clostridium perfringens. He was treated with Augmentin. The patient has very limited mobility as a result of a prior spine injury/surgery. He utilizes a wheelchair at all times. He has not been using his billy lift at home to transfer but has been using a board to slide himself from his bed to chair at home. He sits in his wheelchair almost all day, not really able to change positions. They finally obtained a low air loss overlay to their regular mattress at home. A roho cushion was ordered for his wheelchair. Patient is a smoker. Surgery 04/28/22 - Excision right ischial pressure sore, Stage IV, with partial ostectomy for osteomyelitis. Size of wound 8 x 7 x 4.5 cm. Operative tissue cultures positive for MSSA and Cutibacterium acnes. Bone cultures positive for MSSA and Corynebacterium striatum. He is being treated with Augmentin. Wound culture from 07/14/22 positive for Staphylococcus aureus and he was treated with Augmentin. Prealbumin 13.4 on 04/29/22. He was seen in the ED on 05/02/22 because of a couple falls he experienced since his surgery. CT of his pelvis showed some bony disruption at the level of the inferior pubic ramus suggests a mild osteomyelitis. Anticipate increased metabolic demands from the infection. Encourage nutritional supplementation with protein to help the healing process. Today he denies fever. His appetite is ok. Progress of Wound: Ulcer is beefy pink. The ulcer is into the muscle with bone palpable. Ulcer is stable. The patient has decided to have a colostomy placed, he has follow up with Dr. Romero, the surgery will be scheduled in October. Objective Data Objective Data Vital Signs: Vital Signs Temp Pulse Resp BP O2 Del Method 96.2 F L 76 16 120/56 L Room Air 09/15/22 08:09 09/15/22 08:09 09/15/22 08:09 09/15/22 08:09 09/15/22 08:09 Oxygen Delivery Method Room Air Weight: 220 lb Body Mass Index (BMI) 35.5 Charges/Coding Procedures Integumentary 111xxx-113xx: 07045 Lillian musc/fascia 20 sq cm/< Add On Codes: 70275 Lillian musc/fascia add-on Debridement Note Debridement Note Wound debrided: Ischial ulcer Laterality: Right Wound Grade/Stage: Stage IV Type of Debridement: Excisional debridement Anesthesia Used: 5% Lidocaine Gel Depth: Down to and including healthy tissue, in the subcutaneous layer and to muscle Percentage of wound debrided: 100 Instrument Used: 7mm curette Tissue Removed: Devitalized tissue and slough into the muscle Severity: Fat Layer Exposed Amount of bleeding with debridement: Mild Bleeding Controlled with: Pressure and Compression and gauze Patient tolerated procedure: Patient tolerated procedure well Debridement Free Text: Ulcer into the muscle, bone is palpable today. Post-Debridement Measurements and Additional Note: Post-Debridement Measurements/Treatment - Nurse 1 - General Ulcer Assessment Start: 09/01/22 09:10 Freq: Status: Active Protocol: KIRA Activity Type Activity Date Activity User E-sign Co-sign Detail Recorded Client Recorded Date Recorded By Document 09/01/22 09:10 [id number] 09/01/22 09:22 DL Document 09/15/22 08:09 [facility] [id number] 09/15/22 08:13 [facility] 09/01/22 09/15/22 09:10 08:09 - Today's Visit Information Type of service Follow-up Visit Follow-up Visit (Physician/AEGIS OPERATIONS SPECIALIST (Physician/AEGIS OPERATIONS SPECIALIST ) ) Arrival Mode Wheelchair Wheelchair Transfer Assistance Billy Lift,None Billy Lift Transfer Assist (Other) 2 Patient Identification Verified (Name & Yes Yes ) Patient Requires Transmission-Based No No Precautions Height and Weight Body Mass Index (BMI) 35.5 35.5 BMI Classification Obese Obese Vital Signs Temperature (97.8 F-99.1 F) 91 F L 96.2 F L Temperature Source Temporal Temporal Pulse Rate (60-100) 84 76 Pulse Location Monitor Monitor Respiratory Rate (12-18) 20 H 16 Respiratory rate source Observation Observation Oxygen Delivery Method Room Air Blood Pressure (90/60-120/80) 143/71 H 120/56 L Blood Pressure Mean (mm Hg) 95 77 Source Monitor Monitor Position Sitting Blood Pressure Location Left Arm History Since Last Visit- (Skip if this is Patient's initial visit) Have you changed medications since your No No last visit? Any new allergies or adverse reactions No No Had a fall/change in ADL's that may No No increase risk of falls Signs or symptoms of abuse and/or No No neglect since last visit Have you been in the hospital since your No No last visit? Has dressing in place as prescribed Yes Yes Has compression in place as prescribed N/A N/A Has offloadiing in place as prescribed Yes N/A Experienced any changes in pain level or No No management Left Footwear Custom Shoe Right Footwear Custom Shoe Pain Scale: 0-10 Numeric Is Patient Pain Free? Yes Yes WC - Nurse 1 - General Ulcer Measurement Start: 09/01/22 09:10 Freq: Status: Active Protocol: Activity Type Activity Date Activity User E-sign Co-sign Detail Recorded Client Recorded Date Recorded By Document 09/01/22 09:10 DL [id number] 09/01/22 09:22 DL Document 09/15/22 08:09 [facility] [id number] 09/15/22 08:13 [facility] 09/01/22 09/15/22 09:10 08:09 Wound Center Nurse 1 #5- R ischium -Combined with other wound No -Current Size (cm) - Length 5.2 3.2 -Current Size (cm) - Width 3.8 5.8 -Current Size (cm) - Depth 5.8 4.8 -Total Square Cm 19.76 18.56 -Date of Last Picture (Recall this 09/15/22 field) -Photo Taken Yes Yes -Epithelialization None Present -Tunneling No No -Undermining/Tunneling No No -Circular Undermining No No -Change in Wound Grade/Stage No -Exudate Amt Large Medium -Exudate Type Serosanguineous Serosanguineous -Wound Margin Distinct, Distinct, Outline Outline Attached Attached -Granulation Amt Large (67-100%) Large (67-100%) -Granulation Quality Red Red -Slough/Fibrin Yes No -Necrosis Amt Small (1-33%) None Present (0 %) -Necrotic Tissue Type Adherent Slough -Structure Exposed N/A -Texture (Michelle-wound Skin Appearance) Assessed, Assessed, Scarring Scarring -Moisture (Michelle-wound Skin Appearance) Assessed, Assessed Maceration -Color (Michelle-wound Skin Appearance) No Abnormality, Assessed Assessed -Temperature (Michelle-wound Skin No Abnormality No Abnormality Appearance) (Pt Warm) (Pt Warm) -Tenderness on Palpation (Michelle-wound No No Skin Appearance) -Ulcer Cleansing Soap and Water Soap and Water -Foul Odor after Cleansing No No -Anesthetic Used 4% Lidocaine 4% Lidocaine Solution Solution WC - Nurse 2 - General Ulcer CM Notes Start: 09/01/22 09:10 Freq: Status: Active Protocol: Activity Type Activity Date Activity User E-sign Co-sign Detail Recorded Client Recorded Date Recorded By Document 09/01/22 09:52 [id number] 09/01/22 09:55 Document 09/15/22 09:07 PL [id number] 09/15/22 09:09 PL 09/01/22 09/15/22 09:52 09:07 Wound Center Nurse 2 #5- R ischium -Time 09:52 08:45 -Correct Patient Yes Yes -Correct Side, Site, Position Yes Yes -Correct Procedure Yes Yes -Procedure Performed Yes Yes -Type of Procedure Debridement Debridement -Clinical Debridement Muscle / Fascia Muscle / Fascia -Tissue Removed Muscle,Fascia Epidermis, Dermis, Subcutaneous, Muscle -Post Debridement (cm) - Length 6.3 6.0 -Post Debridement (cm) - Width 4.5 5.0 -Post Debridement (cm) - Depth 3.9 5.0 -Total Square (Post) (cm) 28.35 30.00 -Area of Debridement (cm) - Length 6.3 6.0 -Area of Debridement (cm) - Width 4.5 5.0 -Total Square (Area) (cm) 28.35 30.00 -Tunneling No Yes -Tunneling Position (O'clock) 12 -Tunneling Distance (cm) 4.3 -Undermining/Tunneling Yes -Undermining/Tunneling Starts (O'clock 12 ) -Undermining/Tunneling Ends (O'clock) 3 -Maximum Distance (cm) 5.0 -Circular Undermining No No -Wound/Ulcer Outcome Not Healed Not Healed -Ulcer Cleansing Rinsed/ Rinsed/ Irrigated with Irrigated with Saline Saline -Foul Odor after Cleansing No No -Bioengineered Tissue No No -Bleeding Controlled with Pressure Pressure -Treatment Response Procedure Procedure Tolerated Well Tolerated Well -Offloading No -Pressure Reduction Wheelchair cushion -Debridement - Muscle / Fascia, 1st Yes Yes 20sq cm -Debridement, Muscle/Fascia, ea addt'l 1 1 20sq cm or part thereof Pain Scale: 0-10 Numeric Is Patient Pain Free? Yes Yes - Nurse 3 - General Ulcer D/C NN Start: 09/01/22 09:10 Freq: Status: Active Protocol: Activity Type Activity Date Activity User E-sign Co-sign Detail Recorded Client Recorded Date Recorded By Document 09/01/22 10:09 [facility] [id number] 09/01/22 10:10 [facility] Document 09/15/22 08:54 DL [id number] 09/15/22 08:55 DL 09/01/22 09/15/22 10:09 08:54 Wound Care Center Nurse 3 #5- R ischium -Ulcer Cleansing Rinsed/ Rinsed/ Irrigated with Irrigated with Saline Saline -Foul Odor after Cleansing No No -Primary Dressing Applied Hysept ($) -Other Dressing dakins moist gauze -Primary Dressing Covered/Secured with Secured with Dry Gauze, Tape Secured with Tape -Other Covering abd ABD Treatment Response Procedure Procedure Tolerated Well Tolerated Well Pain Scale: 0-10 Numeric Is Patient Pain Free? Yes Yes - Visit Discharge Discharge Condition Stable Stable Ambulatory Status Wheelchair Wheelchair Transportation transport Facility Type Home Health Home Health Orders Sent Yes Assessment/Plan Assessment/Plan (1) Right ischial pressure sore, stage 4: CODE(S): L89.314 - Pressure ulcer of right buttock, stage 4 (2) Osteomyelitis of right side of pelvis: CODE(S): M86.9 - Osteomyelitis, unspecified (3) Smoker: CODE(S): F17.200 - Nicotine dependence, unspecified, uncomplicated (4) Wheelchair dependent: CODE(S): Z99.3 - Dependence on wheelchair PLAN: Plan Patient evaluated at the wound center today. Wound care - Dakins 0.25% moistened gauze covered by ABD/super absorber daily and as needed. They have home health to help assist with his dressing changes. Operative tissue cultures positive for MSSA and Cutibacterium acnes. Bone cultures positive for MSSA and Corynebacterium striatum. He is being treated with Augmentin. He was seen in the ED on 05/02/22 because of a couple falls he experienced since his surgery. CT of his pelvis showed some bony disruption at the level of the inferior pubic ramus suggests a mild osteomyelitis. Prealbumin 13.4 on 04/29/22. Anticipate increased metabolic demands from the infection. Encourage nutritional supplementation with protein to help the healing process. A wound culture was obtained on 07/14/22, which was positive for Staphylococcus aureus and was treated with Augmentin. He had a colonscopy by Dr. Romeor on 06/18/22. Patient has decided he will have a colostomy, he said it will be scheduled in October. He has home health to assist with wound care. Follow up three weeks. Call or come in sooner if needed.
== END 2022-09-26 23:59 | disposition home or self-care (01) ==
LOC: WC 09:00
PROVIDERS: Referring Provider Physician Assistant; Visit Provider Nurse Practitioner Family
DX: L89.214 Pressure ulcer of right hip, stage 4 (principal); M86.9 Osteomyelitis, unspecified; F17.200 Nicotine dependence, unspecified, uncomplicated; Z74.01 Bed confinement status; B95.61 Methicillin susceptible Staphylococcus aureus infection as the cause of diseases classified elsewhere; Z99.3 Dependence on wheelchair
CPT/HCPCS: 11043; 11046

== ENCOUNTER 2022-10-20 09:00 | Outpatient (RCR) | payer BC, MEDICARE, SELFPAY ==
[2022-09-27 00:55] VITALS: BP 120/56; PULSE 76; RESP 16; TEMP 35.7; BMI 35.5
[2022-10-06 08:38] VITALS: BP 125/74; PULSE 83; RESP 16; TEMP 36.3; BMI 35.5
--- NOTE | 2022-10-06 09:25 | PCM.WC.PN ---
History of Present Illness Date of Service: 10/06/22 Chief Complaint: Right ischial pressure sore, Stage IV. History of Wound: This is a 67-year-old white male who presented to the wound healing center with complaints of pressure ulcer to right buttock area with extension to the right ischial bone. This started in October,. Patient's was treating with OTC creams and keeping area clean. The ulcer starting increasing in size and went to the Emergency Department on 02/08/22. CT showed subcutaneous and deep soft tissue involvement and possible early abscess formation. The bone was not addressed. He had a wound culture on 02/28/22. It was positive for E. coli, Staphylococcus aureus, and Clostridium perfringens. He was treated with Augmentin. The patient has very limited mobility as a result of a prior spine injury/surgery. He utilizes a wheelchair at all times. He has not been using his billy lift at home to transfer but has been using a board to slide himself from his bed to chair at home. He sits in his wheelchair almost all day, not really able to change positions. They finally obtained a low air loss overlay to their regular mattress at home. A roho cushion was ordered for his wheelchair. Patient is a smoker. Surgery 04/28/22 - Excision right ischial pressure sore, Stage IV, with partial ostectomy for osteomyelitis. Size of wound 8 x 7 x 4.5 cm. Operative tissue cultures positive for MSSA and Cutibacterium acnes. Bone cultures positive for MSSA and Corynebacterium striatum. He is being treated with Augmentin. Wound culture from 07/14/22 positive for Staphylococcus aureus and he was treated with Augmentin. Prealbumin 13.4 on 04/29/22. He was seen in the ED on 05/02/22 because of a couple falls he experienced since his surgery. CT of his pelvis showed some bony disruption at the level of the inferior pubic ramus suggests a mild osteomyelitis. Anticipate increased metabolic demands from the infection. Encourage nutritional supplementation with protein to help the healing process. Today he denies fever. His appetite is ok. Progress of Wound: Ulcer is beefy pink. The ulcer is into the muscle with small area of bone palpable that is not covered. Ulcer is stable. The patient has decided to have a colostomy placed with Dr. Romero, which is scheduled for the end of September. Objective Data Objective Data Vital Signs: Vital Signs Temp Pulse Resp BP O2 Del Method 97.4 F L 83 16 125/74 H Room Air 10/06/22 08:38 10/06/22 08:38 10/06/22 08:38 10/06/22 08:38 10/06/22 08:38 Oxygen Delivery Method Room Air Weight: 220 lb Body Mass Index (BMI) 35.5 Charges/Coding Procedures Integumentary 111xxx-113xx: 17676 Lillian musc/fascia 20 sq cm/< Add On Codes: 27012 Lillian musc/fascia add-on Debridement Note Debridement Note Wound debrided: Ischial ulcer Laterality: Right Wound Grade/Stage: Stage IV Type of Debridement: Excisional debridement Anesthesia Used: 5% Lidocaine Gel Depth: Down to and including healthy tissue, in the subcutaneous layer and to muscle Percentage of wound debrided: 100 Instrument Used: 7mm curette Tissue Removed: Devitalized tissue and slough into the muscle Severity: Fat Layer Exposed Amount of bleeding with debridement: Mild Bleeding Controlled with: Pressure and Compression and gauze Patient tolerated procedure: Patient tolerated procedure well Debridement Free Text: Ulcer into the muscle, bone is palpable. Post-Debridement Measurements and Additional Note: Post-Debridement Measurements/Treatment - Nurse 1 - General Ulcer Assessment Start: 10/06/22 08:38 Freq: Status: Active Protocol: .NORIS Activity Type Activity Date Activity User E-sign Co-sign Detail Recorded Client Recorded Date Recorded By Document 10/06/22 08:38 [facility] [id number] 10/06/22 08:48 [facility] 10/06/22 08:38 - Today's Visit Information Type of service Follow-up Visit (Physician/PLAY THERAPIST ) Arrival Mode Wheelchair Transfer Assistance Billy Lift Transfer Assist (Other) 2 Patient Identification Verified (Name & Yes ) Patient Requires Transmission-Based No Precautions Height and Weight Body Mass Index (BMI) 35.5 BMI Classification Obese Vital Signs Temperature (97.8 F-99.1 F) 97.4 F L Temperature Source Temporal Pulse Rate (60-100) 83 Pulse Location Monitor Respiratory Rate (12-18) 16 Respiratory rate source Observation Oxygen Delivery Method Room Air Blood Pressure (90/60-120/80) 125/74 H Blood Pressure Mean (mm Hg) 91 Source Monitor Position Sitting Blood Pressure Location Right Arm History Since Last Visit- (Skip if this is Patient's initial visit) Have you changed medications since your No last visit? Any new allergies or adverse reactions No Had a fall/change in ADL's that may No increase risk of falls Signs or symptoms of abuse and/or No neglect since last visit Have you been in the hospital since your No last visit? Has dressing in place as prescribed Yes Has compression in place as prescribed N/A Has offloadiing in place as prescribed N/A Experienced any changes in pain level or No management Left Footwear Regular Shoe Right Footwear Regular Shoe Pain Scale: 0-10 Numeric Is Patient Pain Free? Yes WC - Nurse 1 - General Ulcer Measurement Start: 10/06/22 08:38 Freq: Status: Active Protocol: Activity Type Activity Date Activity User E-sign Co-sign Detail Recorded Client Recorded Date Recorded By Document 10/06/22 08:38 [facility] [id number] 10/06/22 08:48 [facility] 10/06/22 08:38 Wound Center Nurse 1 #5- R ischium -Combined with other wound No -Current Size (cm) - Length 5.4 -Current Size (cm) - Width 4 -Current Size (cm) - Depth 3.3 -Total Square Cm 21.6 -Epithelialization None Present -Tunneling No -Undermining/Tunneling Yes -Undermining/Tunneling Starts (O'clock 12 ) -Undermining/Tunneling Ends (O'clock) 1 -Maximum Distance (cm) 6.5 -Circular Undermining No -Exudate Amt Large -Exudate Type Serosanguineous -Wound Margin Distinct, Outline Attached -Granulation Amt Large (67-100%) -Granulation Quality Red -Slough/Fibrin No -Necrosis Amt None Present (0 %) -Texture (Michelle-wound Skin Appearance) Assessed, Scarring -Moisture (Michelle-wound Skin Appearance) Assessed -Color (Michelle-wound Skin Appearance) Assessed -Temperature (Michelle-wound Skin No Abnormality Appearance) (Pt Warm) -Tenderness on Palpation (Michelle-wound No Skin Appearance) -Ulcer Cleansing Soap and Water -Foul Odor after Cleansing No -Anesthetic Used 4% Lidocaine Solution DILCIA - Nurse 2 - General Ulcer CM Notes Start: 10/06/22 08:38 Freq: Status: Active Protocol: Activity Type Activity Date Activity User E-sign Co-sign Detail Recorded Client Recorded Date Recorded By Document 10/06/22 09:07 [facility] [id number] 10/06/22 09:10 10/06/22 09:07 Wound Center Nurse 2 -Time 09:08 -Correct Patient Yes -Correct Side, Site, Position Yes -Correct Procedure Yes -Procedure Performed Yes -Type of Procedure Debridement -Clinical Debridement Muscle / Fascia -Tissue Removed Muscle,Fascia -Post Debridement (cm) - Length 6 -Post Debridement (cm) - Width 5 -Post Debridement (cm) - Depth 3 -Total Square (Post) (cm) 30 -Area of Debridement (cm) - Length 6 -Area of Debridement (cm) - Width 5 -Total Square (Area) (cm) 30 -Tunneling No -Undermining/Tunneling Yes -Undermining/Tunneling Starts (O'clock 12 ) -Undermining/Tunneling Ends (O'clock) 3 -Maximum Distance (cm) 3.5 -Circular Undermining No -Wound/Ulcer Outcome Not Healed -Ulcer Cleansing Rinsed/ Irrigated with Saline -Foul Odor after Cleansing No -Bioengineered Tissue No -Bleeding Controlled with Pressure -Treatment Response Procedure Tolerated Well -Offloading No -Pressure Reduction Wheelchair cushion -Debridement - Muscle / Fascia, 1st Yes 20sq cm -Debridement, Muscle/Fascia, ea addt'l 1 20sq cm or part thereof Pain Scale: 0-10 Numeric Is Patient Pain Free? Yes - Nurse 3 - General Ulcer D/C NN Start: 10/06/22 08:38 Freq: Status: Active Protocol: Activity Type Activity Date Activity User E-sign Co-sign Detail Recorded Client Recorded Date Recorded By Document 10/06/22 09:13 [facility] [id number] 10/06/22 09:14 [facility] 10/06/22 09:13 Wound Care Center Nurse 3 #5- R ischium -Ulcer Cleansing Rinsed/ Irrigated with Saline -Foul Odor after Cleansing No -Other Dressing 0.25% Dakin's -Primary Dressing Covered/Secured with Dry Gauze & Roll Gauze, Secured with Tape Pain Scale: 0-10 Numeric Is Patient Pain Free? Yes WC - Visit Discharge Discharge Condition Stable Ambulatory Status Wheelchair Accompanied by billy Medication Reconcilliation completed & Yes provided to patient/care provider Clinical Summary of Care Provided Yes Assessment/Plan Assessment/Plan (1) Right ischial pressure sore, stage 4: CODE(S): L89.314 - Pressure ulcer of right buttock, stage 4 (2) Osteomyelitis of right side of pelvis: CODE(S): M86.9 - Osteomyelitis, unspecified (3) Smoker: CODE(S): F17.200 - Nicotine dependence, unspecified, uncomplicated (4) Wheelchair dependent: CODE(S): Z99.3 - Dependence on wheelchair PLAN: Plan Patient evaluated at the wound center today. Wound care - Dakins 0.25% moistened gauze covered by ABD/super absorber daily and as needed. They have home health to help assist with his dressing changes. Operative tissue cultures positive for MSSA and Cutibacterium acnes. Bone cultures positive for MSSA and Corynebacterium striatum. He is being treated with Augmentin. He was seen in the ED on 05/02/22 because of a couple falls he experienced since his surgery. CT of his pelvis showed some bony disruption at the level of the inferior pubic ramus suggests a mild osteomyelitis. Prealbumin 13.4 on 04/29/22. Anticipate increased metabolic demands from the infection. Encourage nutritional supplementation with protein to help the healing process. A wound culture was obtained on 07/14/22, which was positive for Staphylococcus aureus and was treated with Augmentin. He had a colonscopy by Dr. Romero on 06/18/22. Patient has decided he will have a colostomy, he said it is scheduled for the end of September. He has home health to assist with wound care. Follow up three weeks. Call or come in sooner if needed.
[2022-10-20 08:28] VITALS: BP 100/60; PULSE 85; RESP 16; TEMP 36.1; BMI 35.5
--- NOTE | 2022-10-20 10:17 | PCM.WC.PN ---
History of Present Illness Date of Service: 10/20/22 Chief Complaint: Right ischial pressure sore, Stage IV. History of Wound: This is a 67-year-old white male who presented to the wound healing center with complaints of pressure ulcer to right buttock area with extension to the right ischial bone. This started in October,. Patient's was treating with OTC creams and keeping area clean. The ulcer starting increasing in size and went to the Emergency Department on 02/08/22. CT showed subcutaneous and deep soft tissue involvement and possible early abscess formation. The bone was not addressed. He had a wound culture on 02/28/22. It was positive for E. coli, Staphylococcus aureus, and Clostridium perfringens. He was treated with Augmentin. The patient has very limited mobility as a result of a prior spine injury/surgery. He utilizes a wheelchair at all times. He has not been using his billy lift at home to transfer but has been using a board to slide himself from his bed to chair at home. He sits in his wheelchair almost all day, not really able to change positions. They finally obtained a low air loss overlay to their regular mattress at home. A roho cushion was ordered for his wheelchair. Patient is a smoker. Surgery 04/28/22 - Excision right ischial pressure sore, Stage IV, with partial ostectomy for osteomyelitis. Size of wound 8 x 7 x 4.5 cm. Operative tissue cultures positive for MSSA and Cutibacterium acnes. Bone cultures positive for MSSA and Corynebacterium striatum. He is being treated with Augmentin. Wound culture from 07/14/22 positive for Staphylococcus aureus and he was treated with Augmentin. Prealbumin 13.4 on 04/29/22. He was seen in the ED on 05/02/22 because of a couple falls he experienced since his surgery. CT of his pelvis showed some bony disruption at the level of the inferior pubic ramus suggests a mild osteomyelitis. Anticipate increased metabolic demands from the infection. Encourage nutritional supplementation with protein to help the healing process. Today he denies fever. His appetite is ok. Progress of Wound: Ulcer is beefy pink. The ulcer is into the muscle with small area of bone palpable that is not covered. Ulcer is stable. The patient has decided to have a colostomy placed with Dr. Romero, which is scheduled for later this week. Objective Data Objective Data Vital Signs: Vital Signs Temp Pulse Resp BP O2 Del Method 96.9 F L 85 16 100/60 Room Air 10/20/22 08:28 10/20/22 08:28 10/20/22 08:28 10/20/22 08:28 10/20/22 08:28 Oxygen Delivery Method Room Air Weight: 220 lb Body Mass Index (BMI) 35.5 Charges/Coding Procedures Integumentary 111xxx-113xx: 58646 Lillian musc/fascia 20 sq cm/< Add On Codes: 85529 Lillian musc/fascia add-on (x1) Debridement Note Debridement Note Wound debrided: Ischial ulcer Laterality: Right Wound Grade/Stage: Stage IV Type of Debridement: Excisional debridement Anesthesia Used: 5% Lidocaine Gel Depth: Down to and including healthy tissue, in the subcutaneous layer and to muscle Percentage of wound debrided: 100 Instrument Used: 7mm curette Tissue Removed: Devitalized tissue and slough into the muscle Severity: Fat Layer Exposed Amount of bleeding with debridement: Mild Bleeding Controlled with: Pressure and Compression and gauze Patient tolerated procedure: Patient tolerated procedure well Debridement Free Text: Ulcer into the muscle, bone is palpable. Post-Debridement Measurements and Additional Note: Post-Debridement Measurements/Treatment - Nurse 1 - General Ulcer Assessment Start: 10/06/22 08:38 Freq: Status: Active Protocol: .NORIS Activity Type Activity Date Activity User E-sign Co-sign Detail Recorded Client Recorded Date Recorded By Document 10/06/22 08:38 [facility] [id number] 10/06/22 08:48 [facility] Document 10/20/22 08:28 [facility] [id number] 10/20/22 08:32 [facility] 10/06/22 10/20/22 08:38 08:28 - Today's Visit Information Type of service Follow-up Visit Follow-up Visit (Physician/INTERNET SALES ASSOCIATE (Physician/INTERNET SALES ASSOCIATE ) ) Arrival Mode Wheelchair Wheelchair Transfer Assistance Billy Lift Billy Lift Transfer Assist (Other) 2 Patient Identification Verified (Name & Yes Yes ) Patient Requires Transmission-Based No Precautions Height and Weight Body Mass Index (BMI) 35.5 35.5 BMI Classification Obese Obese Vital Signs Temperature (97.8 F-99.1 F) 97.4 F L 96.9 F L Temperature Source Temporal Temporal Pulse Rate (60-100) 83 85 Pulse Location Monitor Monitor Respiratory Rate (12-18) 16 16 Respiratory rate source Observation Observation Oxygen Delivery Method Room Air Room Air Blood Pressure (90/60-120/80) 125/74 H 100/60 Blood Pressure Mean (mm Hg) 91 73 Source Monitor Monitor Position Sitting Sitting Blood Pressure Location Right Arm Left Arm History Since Last Visit- (Skip if this is Patient's initial visit) Have you changed medications since your No No last visit? Any new allergies or adverse reactions No No Had a fall/change in ADL's that may No No increase risk of falls Signs or symptoms of abuse and/or No No neglect since last visit Have you been in the hospital since your No No last visit? Has dressing in place as prescribed Yes Yes Has compression in place as prescribed N/A N/A Has offloadiing in place as prescribed N/A N/A Experienced any changes in pain level or No No management Left Footwear Regular Shoe Regular Shoe Right Footwear Regular Shoe Regular Shoe Pain Scale: 0-10 Numeric Is Patient Pain Free? Yes Yes WC - Nurse 1 - General Ulcer Measurement Start: 10/06/22 08:38 Freq: Status: Active Protocol: Activity Type Activity Date Activity User E-sign Co-sign Detail Recorded Client Recorded Date Recorded By Document 10/06/22 08:38 [facility] [id number] 10/06/22 08:48 BM Document 10/20/22 08:28 BM [id number] 10/20/22 08:32 BMF 10/06/22 10/20/22 08:38 08:28 Wound Center Nurse 1 #5- R ischium -Combined with other wound No -Current Size (cm) - Length 5.4 6.4 -Current Size (cm) - Width 4 4.1 -Current Size (cm) - Depth 3.3 4.7 -Total Square Cm 21.6 26.24 -Date of Last Picture (Recall this 10/20/22 field) -Photo Taken Yes -Epithelialization None Present -Tunneling No No -Undermining/Tunneling Yes No -Undermining/Tunneling Starts (O'clock 12 ) -Undermining/Tunneling Ends (O'clock) 1 -Maximum Distance (cm) 6.5 -Circular Undermining No No -Exudate Amt Large Small -Exudate Type Serosanguineous Serosanguineous -Wound Margin Distinct, Distinct, Outline Outline Attached Attached -Granulation Amt Large (67-100%) Large (67-100%) -Granulation Quality Red Red -Slough/Fibrin No -Necrosis Amt None Present (0 Small (1-33%) %) -Texture (Michelle-wound Skin Appearance) Assessed, Assessed Scarring -Moisture (Michelle-wound Skin Appearance) Assessed Assessed -Color (Michelle-wound Skin Appearance) Assessed Assessed -Temperature (Michelle-wound Skin No Abnormality No Abnormality Appearance) (Pt Warm) (Pt Warm) -Tenderness on Palpation (Michelle-wound No Skin Appearance) -Ulcer Cleansing Soap and Water Soap and Water -Foul Odor after Cleansing No No -Anesthetic Used 4% Lidocaine 4% Lidocaine Solution Solution Lower Limb Edema Present NA WC - Nurse 2 - General Ulcer CM Notes Start: 10/06/22 08:38 Freq: Status: Active Protocol: Activity Type Activity Date Activity User E-sign Co-sign Detail Recorded Client Recorded Date Recorded By Document 10/06/22 09:07 [id number] 10/06/22 09:10 Document 10/20/22 09:02 MW [id number] 10/20/22 09:05 MW 10/06/22 10/20/22 09:07 09:02 Wound Center Nurse 2 #5- R ischium -Time 09:08 09:02 -Correct Patient Yes Yes -Correct Side, Site, Position Yes Yes -Correct Procedure Yes Yes -Procedure Performed Yes Yes -Type of Procedure Debridement Debridement -Clinical Debridement Muscle / Fascia Muscle / Fascia -Tissue Removed Muscle,Fascia Subcutaneous, Muscle -Post Debridement (cm) - Length 6 6.5 -Post Debridement (cm) - Width 5 6.0 -Post Debridement (cm) - Depth 3 3.8 -Total Square (Post) (cm) 30 39.00 -Area of Debridement (cm) - Length 6 6.5 -Area of Debridement (cm) - Width 5 6.0 -Total Square (Area) (cm) 30 39.00 -Tunneling No Yes -Tunneling Position (O'clock) 12 -Tunneling Distance (cm) 4.8 -Undermining/Tunneling Yes No -Undermining/Tunneling Starts (O'clock 12 ) -Undermining/Tunneling Ends (O'clock) 3 -Maximum Distance (cm) 3.5 -Circular Undermining No No -Wound/Ulcer Outcome Not Healed Not Healed -Ulcer Cleansing Rinsed/ Rinsed/ Irrigated with Irrigated with Saline Saline -Foul Odor after Cleansing No No -Bioengineered Tissue No No -Bleeding Controlled with Pressure Pressure -Treatment Response Procedure Procedure Tolerated Well Tolerated Well -Offloading No No -Pressure Reduction Wheelchair cushion -Debridement - Muscle / Fascia, 1st Yes Yes 20sq cm -Debridement, Muscle/Fascia, ea addt'l 1 1 20sq cm or part thereof Pain Scale: 0-10 Numeric Is Patient Pain Free? Yes Yes - Nurse 3 - General Ulcer D/C NN Start: 10/06/22 08:38 Freq: Status: Active Protocol: Activity Type Activity Date Activity User E-sign Co-sign Detail Recorded Client Recorded Date Recorded By Document 10/06/22 09:13 [id number] 10/06/22 09:14 Document 10/20/22 09:10 [id number] 10/20/22 09:11 10/06/22 10/20/22 09:13 09:10 Wound Care Center Nurse 3 #5- R ischium -Ulcer Cleansing Rinsed/ Rinsed/ Irrigated with Irrigated with Saline Saline -Foul Odor after Cleansing No -Other Dressing 0.25% Dakin's -Primary Dressing Covered/Secured with Dry Gauze & Dry Gauze, Roll Gauze, Secured with Secured with Tape Tape Pain Scale: 0-10 Numeric Is Patient Pain Free? Yes Yes - Visit Discharge Discharge Condition Stable Stable Ambulatory Status Wheelchair Wheelchair Accompanied by billy Medication Reconcilliation completed & Yes No provided to patient/care provider Clinical Summary of Care Provided Yes Yes Assessment/Plan Assessment/Plan (1) Right ischial pressure sore, stage 4: CODE(S): L89.314 - Pressure ulcer of right buttock, stage 4 (2) Osteomyelitis of right side of pelvis: CODE(S): M86.9 - Osteomyelitis, unspecified (3) Smoker: CODE(S): F17.200 - Nicotine dependence, unspecified, uncomplicated (4) Wheelchair dependent: CODE(S): Z99.3 - Dependence on wheelchair PLAN: Plan Patient evaluated at the wound center today. Wound care - Dakins 0.25% moistened gauze covered by ABD/super absorber daily and as needed. They have home health to help assist with his dressing changes. Operative tissue cultures positive for MSSA and Cutibacterium acnes. Bone cultures positive for MSSA and Corynebacterium striatum. He completed Augmentin. He was seen in the ED on 05/02/22 because of a couple falls he experienced since his surgery. CT of his pelvis showed some bony disruption at the level of the inferior pubic ramus suggests a mild osteomyelitis. Prealbumin 13.4 on 04/29/22. Anticipate increased metabolic demands from the infection. Encourage nutritional supplementation with protein to help the healing process. A wound culture was obtained on 07/14/22, which was positive for Staphylococcus aureus and was treated with Augmentin. He had a colonscopy by Dr. Romero on 06/18/22. Patient has decided he will have a colostomy, he said it is scheduled for later in the week. He has home health to assist with wound care. Follow up three weeks. Call or come in sooner if needed.
== END 2022-10-27 23:59 | disposition home or self-care (01) ==
LOC: WC 09:00
PROVIDERS: Referring Provider Physician Assistant; Visit Provider Nurse Practitioner Family
DX: L89.214 Pressure ulcer of right hip, stage 4 (principal); M86.8X8 Other osteomyelitis, other site; F17.200 Nicotine dependence, unspecified, uncomplicated; Z99.3 Dependence on wheelchair
CPT/HCPCS: 11043; 11046

== ENCOUNTER 2022-11-10 08:29 | Outpatient (RCR) | payer BC, MEDICARE, SELFPAY ==
[2022-10-28 00:15] VITALS: BP 100/60; PULSE 85; RESP 16; TEMP 36.1; BMI 35.5
[2022-11-10 08:37] VITALS: BP 114/75; PULSE 70; RESP 16; BMI 35.5
--- NOTE | 2022-11-10 12:25 | PCM.WC.PN ---
History of Present Illness Date of Service: 11/10/22 Chief Complaint: Right ischial pressure sore, Stage IV. History of Wound: This is a 67-year-old white male who presented to the wound healing center with complaints of pressure ulcer to right buttock area with extension to the right ischial bone. This started in October,. Patient's was treating with OTC creams and keeping area clean. The ulcer starting increasing in size and went to the Emergency Department on 02/08/22. CT showed subcutaneous and deep soft tissue involvement and possible early abscess formation. The bone was not addressed. He had a wound culture on 02/28/22. It was positive for E. coli, Staphylococcus aureus, and Clostridium perfringens. He was treated with Augmentin. The patient has very limited mobility as a result of a prior spine injury/surgery. He utilizes a wheelchair at all times. He has not been using his billy lift at home to transfer but has been using a board to slide himself from his bed to chair at home. He sits in his wheelchair almost all day, not really able to change positions. They finally obtained a low air loss overlay to their regular mattress at home. A roho cushion was ordered for his wheelchair. Patient is a smoker. Surgery 04/28/22 - Excision right ischial pressure sore, Stage IV, with partial ostectomy for osteomyelitis. Size of wound 8 x 7 x 4.5 cm. Operative tissue cultures positive for MSSA and Cutibacterium acnes. Bone cultures positive for MSSA and Corynebacterium striatum. He is being treated with Augmentin. Wound culture from 07/14/22 positive for Staphylococcus aureus and he was treated with Augmentin. Prealbumin 13.4 on 04/29/22. He was seen in the ED on 05/02/22 because of a couple falls he experienced since his surgery. CT of his pelvis showed some bony disruption at the level of the inferior pubic ramus suggests a mild osteomyelitis. Anticipate increased metabolic demands from the infection. Encourage nutritional supplementation with protein to help the healing process. Today he denies fever. His appetite is ok. Progress of Wound: Ulcer is beefy pink. The ulcer is into the muscle with small area of bone palpable that is not covered. Ulcer is stable. He is having increased pain with debridement. Wound culture obtained due to the amount of discomfort he was experiencing. The patient has decided to have a colostomy placed with Dr. Romero, which is scheduled for 11/21/22. Objective Data Objective Data Vital Signs: Vital Signs Temp Pulse Resp BP O2 Del Method 96.9 F L 70 16 114/75 Room Air 10/28/22 00:15 11/10/22 08:37 11/10/22 08:37 11/10/22 08:37 11/10/22 08:37 Oxygen Delivery Method Room Air Weight: 220 lb Body Mass Index (BMI) 35.5 Charges/Coding Procedures Integumentary 111xxx-113xx: 44704 Lillian musc/fascia 20 sq cm/< Add On Codes: 68870 Lillian musc/fascia add-on Debridement Note Debridement Note Wound debrided: Ischial ulcer Laterality: Right Wound Grade/Stage: Stage IV Type of Debridement: Excisional debridement Anesthesia Used: 5% Lidocaine Gel Depth: Down to and including healthy tissue, in the subcutaneous layer and to muscle Percentage of wound debrided: 100 Instrument Used: 7mm curette Tissue Removed: Devitalized tissue and slough into the muscle Severity: Fat Layer Exposed Amount of bleeding with debridement: Mild Bleeding Controlled with: Pressure and Compression and gauze Patient tolerated procedure: Patient tolerated procedure well Debridement Free Text: Ulcer into the muscle, bone is palpable. Post-Debridement Measurements and Additional Note: Post-Debridement Measurements/Treatment - Nurse 1 - General Ulcer Assessment Start: 11/10/22 08:32 Freq: Status: Active Protocol: .[place] Activity Type Activity Date Activity User E-sign Co-sign Detail Recorded Client Recorded Date Recorded By Document 11/10/22 08:37 [facility] [id number] 11/10/22 08:43 [facility] 11/10/22 08:37 - Today's Visit Information Type of service Follow-up Visit (Physician/PROCESS ENVIRONMENTAL TECHNICIAN ) Arrival Mode Wheelchair Transfer Assistance Billy Lift Transfer Assist (Other) 2 Patient Identification Verified (Name & Yes ) Patient Requires Transmission-Based No Precautions Height and Weight Body Mass Index (BMI) 35.5 BMI Classification Obese Vital Signs Pulse Rate (60-100) 70 Pulse Location Monitor Respiratory Rate (12-18) 16 Respiratory rate source Observation Oxygen Delivery Method Room Air Blood Pressure (90/60-120/80) 114/75 Blood Pressure Mean (mm Hg) 88 Source Monitor Position Supine Blood Pressure Location Right Arm History Since Last Visit- (Skip if this is Patient's initial visit) Have you changed medications since your No last visit? Any new allergies or adverse reactions No Had a fall/change in ADL's that may No increase risk of falls Signs or symptoms of abuse and/or No neglect since last visit Have you been in the hospital since your No last visit? Has dressing in place as prescribed Yes Has compression in place as prescribed N/A Has offloadiing in place as prescribed N/A Experienced any changes in pain level or No management Left Footwear Regular Shoe Right Footwear Regular Shoe Pain Scale: 0-10 Numeric Is Patient Pain Free? Yes WC - Nurse 1 - General Ulcer Measurement Start: 11/10/22 08:32 Freq: Status: Active Protocol: Activity Type Activity Date Activity User E-sign Co-sign Detail Recorded Client Recorded Date Recorded By Document 11/10/22 08:37 [facility] [id number] 11/10/22 08:43 [facility] 11/10/22 08:37 Wound Center Nurse 1 #5- R ischium -Combined with other wound No -Current Size (cm) - Length 5 -Current Size (cm) - Width 3.9 -Current Size (cm) - Depth 4.6 -Total Square Cm 19.5 -Date of Last Picture (Recall this 11/10/22 field) -Photo Taken Yes -Epithelialization None Present -Tunneling Yes -Tunneling Position (O'clock) 2 -Tunneling Distance (cm) 6 -Undermining/Tunneling No -Circular Undermining No -Exudate Amt Large -Exudate Type Serosanguineous -Wound Margin Distinct, Outline Attached -Granulation Amt Large (67-100%) -Granulation Quality Red -Slough/Fibrin No -Necrosis Amt None Present (0 %) -Texture (Michelle-wound Skin Appearance) Assessed, Scarring -Moisture (Michelle-wound Skin Appearance) Assessed -Color (Michelle-wound Skin Appearance) Assessed -Temperature (Michelle-wound Skin No Abnormality Appearance) (Pt Warm) -Tenderness on Palpation (Michelle-wound No Skin Appearance) -Ulcer Cleansing Soap and Water -Foul Odor after Cleansing No -Anesthetic Used 4% Lidocaine Solution WC - Nurse 2 - General Ulcer CM Notes Start: 11/10/22 08:32 Freq: Status: Active Protocol: Activity Type Activity Date Activity User E-sign Co-sign Detail Recorded Client Recorded Date Recorded By Document 11/10/22 09:11 [facility] [id number] 11/10/22 09:17 11/10/22 09:11 Wound Center Nurse 2 -Time 09:11 -Correct Patient Yes -Correct Side, Site, Position Yes -Correct Procedure Yes -Procedure Performed Yes -Type of Procedure Debridement -Clinical Debridement Muscle / Fascia -Tissue Removed Muscle,Fascia -Post Debridement (cm) - Length 6.0 -Post Debridement (cm) - Width 3.5 -Post Debridement (cm) - Depth 3.0 -Total Square (Post) (cm) 21.00 -Area of Debridement (cm) - Length 6.0 -Area of Debridement (cm) - Width 3.5 -Total Square (Area) (cm) 21.00 -Tunneling Yes -Tunneling Position (O'clock) 1 -Tunneling Distance (cm) 7.4 -Undermining/Tunneling No -Circular Undermining No -Wound/Ulcer Outcome Not Healed -Ulcer Cleansing Rinsed/ Irrigated with Saline -Foul Odor after Cleansing No -Bioengineered Tissue No -Bleeding Controlled with Pressure -Treatment Response Procedure Tolerated Well -Offloading No -Debridement - Muscle / Fascia, 1st Yes 20sq cm -Debridement, Muscle/Fascia, ea addt'l 1 20sq cm or part thereof Pain Scale: 0-10 Numeric Is Patient Pain Free? Yes - Nurse 3 - General Ulcer D/C NN Start: 11/10/22 08:32 Freq: Status: Active Protocol: Activity Type Activity Date Activity User E-sign Co-sign Detail Recorded Client Recorded Date Recorded By Document 11/10/22 09:20 [id number] 11/10/22 09:21 11/10/22 09:20 Wound Care Center Nurse 3 #5- R ischium -Ulcer Cleansing Rinsed/ Irrigated with Saline -Foul Odor after Cleansing No -Primary Dressing Applied Hysept ($) -Other Dressing ABD pad -Primary Dressing Covered/Secured with Secured with Tape Pain Scale: 0-10 Numeric Is Patient Pain Free? Yes - Visit Discharge Discharge Condition Stable Ambulatory Status Wheelchair Transportation Private Auto Medication Reconcilliation completed & Yes provided to patient/care provider Clinical Summary of Care Provided Yes Notes: Billy lift used for transport. Assessment/Plan Assessment/Plan (1) Right ischial pressure sore, stage 4: CODE(S): L89.314 - Pressure ulcer of right buttock, stage 4 (2) Osteomyelitis of right side of pelvis: CODE(S): M86.9 - Osteomyelitis, unspecified (3) Smoker: CODE(S): F17.200 - Nicotine dependence, unspecified, uncomplicated (4) Wheelchair dependent: CODE(S): Z99.3 - Dependence on wheelchair PLAN: Plan Patient evaluated at the wound center today. Wound care - Dakins 0.25% moistened gauze covered by ABD/super absorber daily and as needed. They have home health to help assist with his dressing changes. Operative tissue cultures positive for MSSA and Cutibacterium acnes. Bone cultures positive for MSSA and Corynebacterium striatum. He completed Augmentin. He was seen in the ED on 05/02/22 because of a couple falls he experienced since his surgery. CT of his pelvis showed some bony disruption at the level of the inferior pubic ramus suggests a mild osteomyelitis. Prealbumin 13.4 on 04/29/22. Anticipate increased metabolic demands from the infection. Encourage nutritional supplementation with protein to help the healing process. A wound culture was obtained on 07/14/22, which was positive for Staphylococcus aureus and was treated with Augmentin. He had a colonscopy by Dr. Romero on 06/18/22. Patient has decided he will have a colostomy, he said it is scheduled for 11/21/22, it had to be rescheduled due to transportation problems with his last appointment. He has home health to assist with wound care. Follow up 4 weeks so it will give him time to heal after her colostomy. Call or come in sooner if needed.
== END 2022-11-27 23:59 | disposition home or self-care (01) ==
LOC: WC 08:29
PROVIDERS: Referring Provider Physician Assistant; Visit Provider Nurse Practitioner Family
DX: L89.214 Pressure ulcer of right hip, stage 4 (principal); M86.8X8 Other osteomyelitis, other site; F17.200 Nicotine dependence, unspecified, uncomplicated; Z99.3 Dependence on wheelchair
CPT/HCPCS: 11043; 11046; 87070; 87075; 87077; 87186; 87205

== ENCOUNTER 2022-11-21 10:19 | Inpatient (IN) | payer BC, MEDICARE, SELFPAY ==
[2022-10-17 08:59] LABS: Hematocrit 43.9 % (40-54); Hemoglobin 13.9 g/dL (13.0-16.5); Mean Corp Hgb Conc 31.7 g/dL (32-36); Mean Corpuscular Hgb 27.6 pg (27.0-32.0); Mean Corpuscular Volume 87.3 fL (80-94); Mean Platelet Vol. 9.8 fl (6.2-12.0); Platelet Count 415 K/mm3 (150-450); RBC Distribution Width CV 18.6 % (11.6-14.6); RBC Distribution Width SD 58.8 fl (35.1-43.9); Red Blood Count 5.03 M/mm3 (4.6-6.2); White Blood Count 8.2 K/mm3 (4.4-11.0)
[2022-10-17 09:08] LABS: Anion Gap 4 (5-15); BUN 8 mg/dL (7-18); BUN/Creat Ratio 14.2 RATIO (10-20); Calcium,Total 9.3 mg/dL (8.5-10.1); Chloride 107 mmol/L (98-107); Creatinine, Serum 0.56 mg/dL (0.70-1.30); EST Glomerular Filtration Rate 154 mL/min (>60); Est Glom Filt Rate - Afr Amer 187 mL/min (>60); Glucose 100 mg/dL (74-106); Potassium 3.7 mmol/L (3.5-5.1); Sodium Level 139 mmol/L (136-145); Thyroid Stim Hormone (TSH) 0.12 uIU/mL (0.358-3.74)
[2022-11-21] VITALS (14 sets, daily range): BP systolic 106–149; BP diastolic 54–75; PULSE 63–91; RESP 16–18; TEMP 36.1–36.7; O2SAT 92–98; BMI 24.2
--- NOTE | 2022-11-21 06:44 | WOUNDNOTE ---
was asked to kaelyn patient for ostomy. patient is scheduled for a diverting sigmoid colostomy. present in room with patient. states she changes the wound dressings twice a day to the buttock. did not assess wound at this time. patient states he wears his pants approx 2 inches below the umbilicus. there is a small indentation in the left abdomen. patient does not remember having any surgeries there. states she is not sure what it is from as well. sat patient up in the bed to avoid any skin folds. marked patient just slightly below the umbilical line in the LLQ making sure to place the stoma at least 3 fingerbreadths from the umbilicus. showed patient and family an appliance and started some teaching. will plan to change appliance with patient and family on Thursday. Pt already has [facility] home health and plans to continue withe them. no further questions at this time.
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
--- NOTE | 2022-11-21 07:30 | COL_PTH ---
PATIENT: JORGE LINDSEY LOC: [facility]3 U#:[id number] AGE/SX: 67/M ROOM: [facility]21/[address]: Dr. Moustapha Romero MD : 1955 BED: 1 DIS: 11/24/2022 SPEC #: [id number] RECD: 11/21/22 11:55 STATUS: DERRELL HURT #: [id number] ERON: 11/21/22 07:[address]: Moustapha Romero DEPT: SURGICAL PATHOLOGY RECD BY: Lisa Tavarez ENTERED: 11/21/22 13:06 SP TYPE: COLON OTHR DR: Dr. Brian Zimmerman MD Tissues: Colon, NOS Procedures: Surgery Specimen Level III HEADER OPERATION: Lap diverting sigmoid colostomy PRE-OP DIAGNOSIS: Right ischial pressure sore, stage 4 TISSUE SUBMITTED: Sigmoid colon staple line MICROSCOPIC DIAGNOSIS Sigmoid colon staple line: Colonic staple line, no pathologic diagnosis. SJ:marcia 11/24/2022 MICROSCOPIC DESCRIPTION Slides are reviewed. GROSS DESCRIPTION Received in fixative is one container labeled with the patient's name and designated sigmoid colon staple line. The specimen consists of a piece of bowel tissue measuring 4.0 x 1.0 x 1.0 cm. Multiple emily are noted. Pit Recorder sections are submitted in one cassette. / JOSY:marcia 11/21/2022 TC:4 CPT: 54082
[2022-11-21] MEDS: Lactated Ringers 1,000 ML 15 ML IV ×2 (07:35→10:25)
[2022-11-21] MEDS: Cefotetan 2 GM in 0.9% NS 100 ML IV (07:47)
[2022-11-21] MEDS: Bupivacaine Mpf 0.5% 30 ML VIAL (09:50)
--- NOTE | 2022-11-21 10:17 | PCM.OPRPT ---
Report of Operation Date of Procedure: 11/21/22 Pre-Operative Diagnosis: Decubitus ischial ulcer requiring fecal diversion Post-Operative Diagnosis: Same Surgery/Procedure Performed:: Laparoscopic diverting end colostomy Surgeon: Moustapha Romero cyber security administrator: Veronica Leonard Type of Anesthesia: General/Supplemental Anesthesiologist: Basilio Bruce Specimen's removed: Sigmoid colon staple line Estimated Blood Loss (mL): 50 Description of Procedure: After appropriate identification and preoperative holding area patient was brought to the operating room where he was positioned supine on the operating table. There, preoperative antibiotics were completed. He then underwent induction with general endotracheal anesthetic. A Benson catheter was placed with sterile technique for accurate ins and outs monitoring. The abdomen was prepped and draped in usual sterile fashion. Formal timeout confirmed patient and the procedure. Procedure was begun with removal of a disc of skin at the previously marked colostomy site and the subcutaneous tissue was spread down to the level of the anterior rectus sheath. This was incised in a cruciate manner using electrocautery. The rectus fibers were spread along their orientation to bring us down to the posterior rectus sheath. This layer was incised sharply in a longitudinal manner and we proceeded with placement of a 12 mm balloon trocar. Pneumoperitoneum was established to 15 mmHg and a laparoscope was inserted to reveal no inadvertent injury to the viscera below. Laparoscopic visualization did reveal evidence of a number of adhesions between the omentum and the umbilical region where a circular mesh was found intact on the underside of the peritoneum. A 5 mm trocar was placed in the right upper quadrant and a 12 mm trocar was placed in the right lower quadrant under direct laparoscopic visualization. Through these ports I further inspected the adhesions and found them to contain no bowel. Therefore I used the laparoscopic LigaSure device to take down the omentum from the anterior abdominal wall and placed a final 5 mm port in the supraumbilical position again under laparoscopic visualization. Then in Trendelenburg positioning, the patient's colon was mobilized [id number] by incising the white line of Toldt with the laparoscopic LigaSure device. I then proceeded to grasp the colon at various points and bring it to our initial balloon trocar where the colostomy was to be placed and found a location within the distal third of the sigmoid colon that reached without tension. The colon was elevated anteriorly and a retrocolic window was carefully made using the laparoscopic LigaSure device to maintain hemostasis. This window was continued directly adjacent to the posterior wall of the sigmoid colon. The sigmoid colon was thus divided with 2 firings of the laparoscopic 60 mm [place] stapler. I then used the laparoscopic LigaSure to further divide the mesocolon towards its root to provide further reach. With this completed I chose to kaelyn the distal sigmoid colon by laparoscopically placing a 2-0 Prolene sutures through the staple line and tying it intracorporeally. Then a locking grasper was placed on the proximal colonic segment and pneumoperitoneum was evacuated. Our 12 mm balloon trocar was removed from the left lower quadrant and I bluntly enlarged this opening to a 2 fingerbreadth width. The cut end of colon was delivered through this opening and secured against the abdominal wall with a Tanner clamp. The patient's remaining right lower quadrant 12 mm port site was closed at the fascia using a [id number] technique with 0 Vicryl. Additional local anesthetic was instilled. Then this port and the remaining two 5 mm port sites were closed with 4-0 Monocryl. Steri-Strips and bandages were applied as dressings. Lastly I transitioned to maturation of the patient's left lower quadrant colostomy in a standard Coretta fashion. The colon was first tacked to the anterior rectus sheath using a single 3-0 Vicryl suture. After brooking the colostomy it was apparent there was some tipping of the ostomy medially so I attempted to use 2 other interrupted sutures between the mucosa and the dermis to try to further bradley the mucosa and prevent this from falling below the skin surface. Overall this objective was met. An ostomy appliance was cut and fit about the stoma and the procedure was turned over to anesthesia. Anesthesia awaken the patient and he was transferred to PACU for ongoing recovery. Complications None Admit VTE Documentation VTE Present on Admission: Yes VTE Mechan Device Prophylaxis: SCD's
[2022-11-21] MEDS: 0.9% Normal Saline 1,000 ML 100 ML IV ×2 (16:39→23:44)
[2022-11-21] MEDS: Ibuprofen 200 MG Tablet 400 MG PO ×2 (18:46→23:43)
[2022-11-21] MEDS: oxyCODONE 5 MG Tablet PO (23:44)
[2022-11-22 03:43] VITALS: BP 143/67; PULSE 64; RESP 18; TEMP 36.8; O2SAT 96
[2022-11-22] MEDS: Ibuprofen 200 MG Tablet 400 MG PO ×4 (05:47→22:53)
--- NOTE | 2022-11-22 07:02 | PN.SURG_ITS ---
Subjective Subjective Patient tolerating clears having brown liquid out of the stoma small mount. Objective Data Objective Data Vital Signs: Vital Signs Temp Pulse Resp BP Pulse Ox O2 Del Method 98.2 F 64 18 143/67 H 96 Room Air 11/22/22 03:43 11/22/22 03:43 11/22/22 03:43 11/22/22 03:43 11/22/22 03:43 11/22/22 03:43 Oxygen Delivery Method Room Air Weight: 149 lb 14.629 oz Body Mass Index (BMI) 24.2 Intake & Output: Intake and Output for Last 24 Hours 11/20/22 11/21/22 11/22/22 23:59 23:59 23:59 Intake Total 1937.08 / 1937.08 Output Total 2465 / 2465 440 / 440 Balance -527.92 / -527.92 -440 / -440 Lab / Micro Data 10/17/22 07:32 10/17/22 07:32 Physical Exam Const oriented x3 and no apparent distress Resp normal respiratory effort Cardio regular rate GI soft to palpation GI Narrative: Incisions dressed clean dry and intact, stoma pink with small mount of light brown stool. Assessment & Plan Assessment/Plan (1) S/P colostomy: (2) Nonhealing ulcer of right lower leg with fat layer exposed: PLAN: Plan We will advance to regular diet. Patient has more stool we will plan to discharge home. We will restart patient's home meds. Nakita Arroyo M.D. Pager: [phone] [facility] [address] [place] [address], Outpatient Pavilion, [address] [place] [address] Office: [phone]
[2022-11-22 09:09] VITALS: BP 133/66; PULSE 62; RESP 16; TEMP 36.7; O2SAT 95
[2022-11-22] MEDS: Levothyroxine 125 MCG Tablet PO (09:27)
[2022-11-22] MEDS: Tamsulosin HCl 0.4 MG Capsule PO ×2 (09:28→16:33)
[2022-11-22] MEDS: Pantoprazole Sodium 40 MG Tablet PO (09:28)
[2022-11-22] MEDS: Juven (unflavored) Packet 1 PACKET PO ×2 (09:29→16:33)
[2022-11-22] MEDS: Amox/Clavulanate 875 MG Tablet PO ×2 (09:29→21:52)
[2022-11-22] MEDS: 0.9% Normal Saline 1,000 ML 100 ML IV ×2 (09:35→18:46)
[2022-11-22] MEDS: Baclofen 10 MG Tablet 15 MG PO ×3 (09:35→21:51)
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
[2022-11-22 15:00] VITALS: BP 128/62; PULSE 65; RESP 16; TEMP 36.7; O2SAT 96
--- NOTE | 2022-11-22 15:03 | CASEMGMT ---
Social Work SW spoke w/pt and . Pt has not completed LW/POA, declined completing at this time. Pt states his would be his decision maker in the event pt is not able to make decisions. STEFFI Cline
[2022-11-22] MEDS: DAKIN'S SOL HALF STRENGTH (=0.25%) 1 APPLIC TOPICAL (17:50)
[2022-11-22 21:39] VITALS: BP 137/79; PULSE 71; RESP 18; TEMP 37.1; O2SAT 99
[2022-11-22] MEDS: oxyCODONE 5 MG Tablet PO (22:53)
[2022-11-23 04:46] VITALS: BP 125/52; PULSE 59; RESP 18; TEMP 36.6; O2SAT 98
[2022-11-23] MEDS: 0.9% Normal Saline 1,000 ML 100 ML IV ×2 (04:49→14:24)
[2022-11-23] MEDS: Baclofen 10 MG Tablet 15 MG PO ×3 (04:49→21:29)
[2022-11-23] MEDS: Levothyroxine 125 MCG Tablet PO (04:49)
[2022-11-23] MEDS: Ibuprofen 200 MG Tablet 400 MG PO ×4 (04:49→23:26)
[2022-11-23 08:03] VITALS: BP 128/80; PULSE 63; RESP 16; TEMP 36.6; O2SAT 94
[2022-11-23] MEDS: Pantoprazole Sodium 40 MG Tablet PO (08:10)
[2022-11-23] MEDS: Tamsulosin HCl 0.4 MG Capsule PO ×2 (08:10→17:13)
[2022-11-23] MEDS: Juven (unflavored) Packet 1 PACKET PO ×2 (08:10→17:13)
[2022-11-23] MEDS: DAKIN'S SOL HALF STRENGTH (=0.25%) 1 APPLIC TOPICAL (08:10)
[2022-11-23] MEDS: Amox/Clavulanate 875 MG Tablet PO ×2 (08:10→21:29)
--- NOTE | 2022-11-23 08:37 | PN.SURG_ITS ---
Subjective Subjective Patient tolerating diet and having gas and stool in colostomy Objective Data Objective Data Vital Signs: Vital Signs Temp Pulse Resp BP Pulse Ox O2 Del Method 97.9 F 63 16 128/80 H 94 Room Air 11/23/22 08:03 11/23/22 08:03 11/23/22 08:03 11/23/22 08:03 11/23/22 08:03 11/23/22 08:03 Oxygen Delivery Method Room Air Weight: 149 lb 14.629 oz Body Mass Index (BMI) 24.2 Intake & Output: Intake and Output for Last 24 Hours 11/21/22 11/22/22 11/23/22 23:59 23:59 23:59 Intake Total 1937.08 / 1937.08 2953.33 / 2953.33 1000 / 1000 Output Total 2465 / 2465 4160 / 4160 900 / 900 Balance -527.92 / -527.92 -1206.67 / -1206.67 100 / 100 Lab / Micro Data 10/17/22 07:32 10/17/22 07:32 Physical Exam Const oriented x3 and no apparent distress Resp normal respiratory effort Cardio regular rate GI soft to palpation GI Narrative: Incisions dressed clean dry and intact, stoma pink with small mount of light brown stool/flatus. Assessment & Plan Assessment/Plan (1) S/P colostomy: (2) Nonhealing ulcer of right lower leg with fat layer exposed: PLAN: Plan We will advance to regular diet. Patient has more stool and further colostomy teaching as patient does not appear to be that interested per nursing on learning and he is not doing it himself---We will plan to discharge home. Continue home meds. Nakita Arroyo M.D. Pager: [phone] [facility] [address] [place] [address], [facility], [address] [place] [address] Office: [phone]
[2022-11-23 14:15] VITALS: BP 112/67; PULSE 67; RESP 16; TEMP 36.8; O2SAT 95
[2022-11-23 21:21] VITALS: BP 140/74; PULSE 62; RESP 18; TEMP 36.9; O2SAT 97
[2022-11-24 03:56] VITALS: BP 140/64; PULSE 50; RESP 18; TEMP 36.4; O2SAT 98
[2022-11-24] MEDS: Levothyroxine 125 MCG Tablet PO (04:29)
[2022-11-24] MEDS: Baclofen 10 MG Tablet 15 MG PO ×2 (04:29→14:38)
[2022-11-24] MEDS: Ibuprofen 200 MG Tablet 400 MG PO ×2 (04:29→12:57)
[2022-11-24] MEDS: DAKIN'S SOL HALF STRENGTH (=0.25%) 1 APPLIC TOPICAL (07:58)
[2022-11-24] MEDS: Juven (unflavored) Packet 1 PACKET PO (08:13)
[2022-11-24] MEDS: Tamsulosin HCl 0.4 MG Capsule PO (08:13)
--- NOTE | 2022-11-24 08:32 | PCM.PN.SRG ---
Subjective Subjective Patient seen and examined during AM rounds. He is found resting in bed. It was reported the patient showed no interest in learning how to care for his ostomy over the weekend, however, he states today he is willing to learn how to empty it. Plans are in place to review care with patient's when she arrives to the hospital this afternoon. Wound and ostomy nursing report viable appearance of patient's wound. Objective Data Objective Data Vital Signs: Vital Signs Temp Pulse Resp BP Pulse Ox O2 Del Method 97.6 F L 50 L 18 140/64 H 98 Room Air 11/24/22 03:56 11/24/22 03:56 11/24/22 03:56 11/24/22 03:56 11/24/22 03:56 11/24/22 04:30 Oxygen Delivery Method Room Air Weight: 149 lb 14.629 oz Body Mass Index (BMI) 24.2 Intake & Output: Intake and Output for Last 24 Hours 11/22/22 11/23/22 11/24/22 23:59 23:59 23:59 Intake Total 2953.33 / 2953.33 3516.66 / 3516.66 Output Total 4160 / 4160 2925 / 2925 600 / 600 Balance -1206.67 / -1206.67 591.66 / 591.66 -600 / -600 Lab / Micro Data 10/17/22 07:32 10/17/22 07:32 Physical Exam Const oriented x3 and no apparent distress Resp normal respiratory effort GI GI Narrative: Nondistended, operative dressings in tact?beneath these the Steri-Strips remain and there is no surrounding erythema or drainage from the wounds. Patient's left lower quadrant ostomy is pink and viable to mucosa. There is some gas and thin fecal output to the appliance. Patient denies any tenderness with palpation. Assessment & Plan Assessment/Plan (1) S/P colostomy: PLAN: This is a 67-year-old male postoperative day 3 from laparoscopic diverting colostomy. He has done well clinically. We are pending teaching on colostomy management with patient's spouse this afternoon. A prescription has been signed for his necessary ostomy supplies. Therefore, barring any new concerns Mr. Covington should be eligible for discharge to home following the teaching session this afternoon. Charges/Coding Visit Charges Inpatient E&M: 36700 Subs Hosp L2
--- NOTE | 2022-11-24 08:46 | WOUNDNOTE ---
wound photo: right ischium
[2022-11-24 09:57] VITALS: BP 159/74; PULSE 55; RESP 18; TEMP 36.5; O2SAT 98
[2022-11-24] MEDS: Amox/Clavulanate 875 MG Tablet PO (10:37)
[2022-11-24] MEDS: Pantoprazole Sodium 40 MG Tablet PO (10:37)
--- NOTE | 2022-11-24 15:22 | DS.PCM_ITS ---
Providers Date of Admission: 11/21/22 Primary Care Physician: Dr. 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 agent Routine Comment: Reason for Consult:: new Colostomy/ buttock wound Reason For Visit: LAP DIVERTING SIGMOID COLOSTOMY Diagnosis Discharge Diagnosis (1) S/P colostomy: Status: Acute Code(s): Z93.3 - Colostomy status Medications at Discharge Home Medications baclofen 10 mg tablet 15 mg PO TID spasm 12/17/17 levothyroxine 125 mcg tablet 125 mcg PO DAILY 12/17/17 tamsulosin 0.4 mg capsule 0.4 mg PO BID 12/17/17 icosapent ethyl 1 gram capsule (Vascepa) 2 g PO BID cholesterol 02/08/22 acetaminophen 650 mg tablet,extended release 1,300 mg PO Q8H PRN Pain 04/25/22 arginine 7 gram-glutam 7 gram-CaHMB 1.5 [id number] oral pwd pkt (Edgar (with collagen)) 1 packet PO BIDCM 30 days #60 ea 04/30/22 sodium hypochlorite 0.25 % solution (HySept) 1 applic topical DAILY 30 days #400 mL 04/30/22 esomeprazole magnesium 40 mg capsule,delayed release (Nexium) 40 mg PO DAILY 06/16/22 amoxicillin 875 mg-potassium clavulanate 125 mg tablet 1 tab PO BID wound 14 days #28 tabs 11/14/22 Hospital Course Operations - (Laparoscopic diverting end colostomy) Summary of Care Provided Hospital Course: Patient is a 67 y/o M who presented for an elective diverting colostomy. Dr. Romero performed a laparoscopic diverting end colostomy on 11/21/22. Patient had an uneventful hospitalization. Upon discharge, patient tolerated his diet. He had positive air within the stoma bag and liquidy stool output. Patient and his were taught how to take care of the stoma by Nohemy. Patient and spouse deny any further questions and concerns. Weight / BMI Weight Weight: 149 lb 14.629 oz Body Mass Index (BMI) 24.2 ABG / Lab / Microbiology Data 10/17/22 07:32 10/17/22 07:32 Meaningful Use Info Meaningful Use Diagnoses (Choose all that apply): None applicable Discharge Plan Admission Admit Date/Time: 11/21/22 16:29 Primary Reason for Your Visit: Diverting colostomy Attending Provider: Moustapha Romero Primary Care Provider: Brian Zimmerman Discharge Orders/Prescriptions Prescriptions: Continued tamsulosin 0.4 MG capsule 0.4 mg PO BID baclofen 10 MG tablet 15 mg PO TID levothyroxine 125 MCG tablet 125 mcg PO DAILY icosapent ethyl [Vascepa] 1 gram Capsule 2 g PO BID acetaminophen 650 mg Tablet Extended Release 1,300 mg PO Q8H PRN (Reason: Pain) HySept 0.25 % Solution 1 applic topical DAILY 30 Days Qty: 400 1RF Protocol: *Topical Application Instructions APPLICATION INSTRUCTIONS: right ischial wound Edgar (with collagen) 7-7-1.5 gram Powder In Packet 1 packet PO BIDCM 30 Days Qty: 60 2RF esomeprazole magnesium [Nexium] 40 mg Capsule,Delayed Release(Dr/Ec) 40 mg PO DAILY amoxicillin-pot clavulanate 875-125 mg tablet 1 tab PO BID 14 Days Qty: 28 1RF Other Ambulatory Orders: 12 Lead EKG (Routine) Timeframe: 20221017 Location: None Selected Ordered By: Dr. Gera Smith Referrals / Follow Up: Moustapha Romero MD [Med Staff - Active Staff] - (Please call to schedule a follow-up for 2 weeks post-operatively) Care Physician,No Primary [Non-Staff] - Disposition Disposition (needs filled in before D/C Order can be placed): Home, Self Care
[2022-11-24 15:31] VITALS: BP 133/66; PULSE 61; RESP 18; TEMP 37.1; O2SAT 97
--- NOTE | 2022-11-24 15:31 | WOUNDNOTE ---
Did ostomy teaching with patient and . demonstrated how to empty and clean the end of the appliance. patient states he will do it, but he will have to wear gloves. assured patient that was fine. removed the appliance. there was a small amount of unformed brown stool in the appliance. stoma is beefy red and moist. measures approx 1 1/2 and is well budded. peristomal skin is intact. cleansed skin with warm water. pat dry. applied a new 2 piece cut to fit [place] appliance with a paste ring. showed how to use the paste and the powder as well. made pattern of stoma size for . educated patient and that the stoma size can change especially the first 6-8 weeks so they may need a smaller opening. patient is already established with [facility] health care. patient will be sent home with supplies and script was faxed to [facility] this am. Pt and deny further questions or concerns.
--- NOTE | 2022-11-24 15:32 | DCINST_ITS ---
Discharge Instructions Diet Discharge Diet: Light diet - advance as tolerated Activity Lifting Restrictions: 15 pounds for 2 weeks Dressing / Incision Call your doctor if your incision/area has: Continuous Slow Oozing, Sudden In creased Bleeding, Increased Pain/ Swelling, Increased Redness, Foul Smelling Discharge and Swelling at the incision site Call your doctor if you observe: Fever of 101 or Higher Cleanse incision/area with: Soap & Water Follow Up Care Please Follow Up With: Moustapha Romero MD When: Follow-up in 2 weeks. Call [phone] for an appointment Test Results: Test results from this visit will be discussed in further detail at your follow- up appointment, if applicable. Discharge Plan Admission Admit Date/Time: 11/21/22 16:29 Primary Reason for Your Visit: Diverting colostomy Attending Provider: Moustapha Romero Primary Care Provider: Brian Zimmerman Discharge Orders/Prescriptions Prescriptions: Continued tamsulosin 0.4 MG capsule 0.4 mg PO BID baclofen 10 MG tablet 15 mg PO TID levothyroxine 125 MCG tablet 125 mcg PO DAILY icosapent ethyl [Vascepa] 1 gram Capsule 2 g PO BID acetaminophen 650 mg Tablet Extended Release 1,300 mg PO Q8H PRN (Reason: Pain) HySept 0.25 % Solution 1 applic topical DAILY 30 Days Qty: 400 1RF Protocol: *Topical Application Instructions APPLICATION INSTRUCTIONS: right ischial wound Edgar (with collagen) 7-7-1.5 gram Powder In Packet 1 packet PO BIDCM 30 Days Qty: 60 2RF esomeprazole magnesium [Nexium] 40 mg Capsule,Delayed Release(Dr/Ec) 40 mg PO DAILY amoxicillin-pot clavulanate 875-125 mg tablet 1 tab PO BID 14 Days Qty: 28 1RF Other Ambulatory Orders: 12 Lead EKG (Routine) Timeframe: 20221017 Location: None Selected Ordered By: Dr. Gera Smith Referrals / Follow Up: Moustapha Romero MD [[facility] Staff - Active Staff] - (Please call to schedule a follow-up for 2 weeks post-operatively) Care Physician,No Primary [Non-Staff] - Disposition Disposition (needs filled in before D/C Order can be placed): Home, Self Care
--- NOTE | 2022-11-24 15:35 | CASEMGMT ---
Addendum entered by Cherie Cornell 11/24/22 15:46: Pt will be seen tomorrow by [facility]. Original Note: Updated Katalina at [facility] that pt will dc today. Nohemy, wound nurse faxed ostomy list of supplies today.
== END 2022-11-24 16:23 | disposition home or self-care (01) | DRG 982 ==
LOC: SDC 14:28 → MS3 14:28
PROVIDERS: Anesthesiology; Admitting Provider Surgery; PCP Family Medicine; Referring Provider Surgery; Visit Provider Surgery
PROC: 0D1E4Z4 Bypass Large Intestine to Cutaneous, Percutaneous Endoscopic Approach (ICD-10-PCS; CPT 44188; principal; 2022-11-21 07:10)
DX: L89.314 Pressure ulcer of right buttock, stage 4 (principal); G82.20 Paraplegia, unspecified; J44.9 Chronic obstructive pulmonary disease, unspecified; Z93.3 Colostomy status; E78.00 Pure hypercholesterolemia, unspecified; F17.210 Nicotine dependence, cigarettes, uncomplicated; K21.9 Gastro-esophageal reflux disease without esophagitis; Z74.01 Bed confinement status; Z79.899 Other long term (current) drug therapy
CPT/HCPCS: 36415; 80048; 84443; 85027; 88304; 88307; 93005; J7030; J7120; A4216; J2405

== ENCOUNTER 2022-12-08 08:33 | Outpatient (RCR) | payer BC, MEDICARE, SELFPAY ==
[2022-11-28 00:28] VITALS: BP 114/75; PULSE 70; RESP 16; TEMP 36.1; BMI 35.5
[2022-12-08 08:52] VITALS: BP 133/67; PULSE 80; RESP 18; TEMP 35.9; BMI 35.5
--- NOTE | 2022-12-08 09:32 | PCM.WC.PN ---
History of Present Illness Date of Service: 12/08/22 Chief Complaint: Right ischial pressure sore, Stage IV. History of Wound: This is a 67-year-old white male who presented to the wound healing center with complaints of pressure ulcer to right buttock area with extension to the right ischial bone. This started in October,. Patient's was treating with OTC creams and keeping area clean. The ulcer starting increasing in size and went to the Emergency Department on 02/08/22. CT showed subcutaneous and deep soft tissue involvement and possible early abscess formation. The bone was not addressed. He had a wound culture on 02/28/22. It was positive for E. coli, Staphylococcus aureus, and Clostridium perfringens. He was treated with Augmentin. The patient has very limited mobility as a result of a prior spine injury/surgery. He utilizes a wheelchair at all times. He has not been using his lm lift at home to transfer but has been using a board to slide himself from his bed to chair at home. He sits in his wheelchair almost all day, not really able to change positions. They finally obtained a low air loss overlay to their regular mattress at home. A roho cushion was ordered for his wheelchair. Patient is a smoker. Surgery 04/28/22 - Excision right ischial pressure sore, Stage IV, with partial ostectomy for osteomyelitis. Size of wound 8 x 7 x 4.5 cm. Operative tissue cultures positive for MSSA and Cutibacterium acnes. Bone cultures positive for MSSA and Corynebacterium striatum. He is being treated with Augmentin. He had a diverting colostomy placed on 11/21/[address] Romero. Wound culture from 07/14/22 positive for Staphylococcus aureus and he was treated with Augmentin. Wound culture obtained 11/10/22 which was positive for Staphylococcus aureus and he was treated with Augmentin. Prealbumin 13.4 on 04/29/22. He was seen in the ED on 05/02/22 because of a couple falls he experienced since his surgery. CT of his pelvis showed some bony disruption at the level of the inferior pubic ramus suggests a mild osteomyelitis. Anticipate increased metabolic demands from the infection. Encourage nutritional supplementation with protein to help the healing process. Today he denies fever. His appetite is ok. Progress of Wound: The ulcer is into the muscle with small area of bone palpable that is not covered. Ulcer is stable. He is having pain with palpation of the ulcer, especially around the bone area. He had his colostomy placed. He is having some thick, brown mucous still from rectum, will hold off on starting wound vac at this time until the mucous slows down. Objective Data Objective Data Vital Signs: Vital Signs Temp Pulse Resp BP 96.7 F L 80 18 133/67 H 12/08/22 08:52 12/08/22 08:52 12/08/22 08:52 12/08/22 08:52 Weight: 220 lb Body Mass Index (BMI) 35.5 Charges/Coding Procedures Integumentary 111xxx-113xx: 37220 Lillian musc/fascia 20 sq cm/< Add On Codes: 53954 Lillian musc/fascia add-on Debridement Note Debridement Note Wound debrided: Ischial ulcer Laterality: Right Wound Grade/Stage: Stage IV Type of Debridement: Excisional debridement Anesthesia Used: 5% Lidocaine Gel Depth: Down to and including healthy tissue, in the subcutaneous layer and to muscle Percentage of wound debrided: 100 Instrument Used: 7mm curette Tissue Removed: Devitalized tissue and slough into the muscle Severity: Fat Layer Exposed Amount of bleeding with debridement: Mild Bleeding Controlled with: Pressure and Compression and gauze Patient tolerated procedure: Patient tolerated procedure well Debridement Free Text: Ulcer into the muscle, bone is palpable. Post-Debridement Measurements and Additional Note: Post-Debridement Measurements/Treatment - Nurse 1 - General Ulcer Assessment Start: 12/08/22 08:52 Freq: Status: Active Protocol: KIRA Activity Type Activity Date Activity User E-sign Co-sign Detail Recorded Client Recorded Date Recorded By Document 12/08/22 08:52 [id number] 12/08/22 08:54 RB 12/08/22 08:52 - Today's Visit Information Type of service Follow-up Visit (Physician/MANAGER ACTION ) Arrival Mode Ambulatory Transfer Assistance None Patient Identification Verified (Name & Yes ) Patient Requires Transmission-Based No Precautions Height and Weight Body Mass Index (BMI) 35.5 BMI Classification Obese Vital Signs Temperature (97.8 F-99.1 F) 96.7 F L Temperature Source Temporal Pulse Rate (60-100) 80 Pulse Location Monitor Respiratory Rate (12-18) 18 Respiratory rate source Observation Blood Pressure (90/60-120/80) 133/67 H Blood Pressure Mean (mm Hg) 89 Source Monitor Position Semi-Fowlers Blood Pressure Location Left Arm History Since Last Visit- (Skip if this is Patient's initial visit) Have you changed medications since your No last visit? Any new allergies or adverse reactions No Had a fall/change in ADL's that may No increase risk of falls Signs or symptoms of abuse and/or No neglect since last visit Have you been in the hospital since your No last visit? Has dressing in place as prescribed Yes Has compression in place as prescribed No Has offloadiing in place as prescribed No Experienced any changes in pain level or No management Pain Scale: 0-10 Numeric Is Patient Pain Free? Yes WC - Nurse 1 - General Ulcer Measurement Start: 12/08/22 08:52 Freq: Status: Active Protocol: Activity Type Activity Date Activity User E-sign Co-sign Detail Recorded Client Recorded Date Recorded By Document 12/08/22 08:52 RB [id number] 12/08/22 08:54 RB 12/08/22 08:52 Wound Center Nurse 1 #5- R ischium -Combined with other wound No -Current Size (cm) - Length 5.5 -Current Size (cm) - Width 5 -Current Size (cm) - Depth 4.8 -Total Square Cm 27.5 -Tunneling No -Undermining/Tunneling Yes -Undermining/Tunneling Starts (O'clock 12 ) -Undermining/Tunneling Ends (O'clock) 2 -Maximum Distance (cm) 7 -Circular Undermining No -Exudate Amt Large -Exudate Type Serosanguineous -Wound Margin Distinct, Outline Attached -Granulation Amt Medium (34-66%) -Granulation Quality [place] -Slough/Fibrin Yes -Necrosis Amt Medium (34-66%) -Necrotic Tissue Type Adherent Slough -Structure Exposed Bone -Texture (Michelle-wound Skin Appearance) Assessed -Moisture (Michelle-wound Skin Appearance) Maceration -Color (Michelle-wound Skin Appearance) Assessed -Temperature (Michelle-wound Skin No Abnormality Appearance) (Pt Warm) -Tenderness on Palpation (Michelle-wound No Skin Appearance) -Ulcer Cleansing Wound Cleanser -Foul Odor after Cleansing No -Anesthetic Used 4% Lidocaine Solution WC - Nurse 2 - General Ulcer CM Notes Start: 12/08/22 08:52 Freq: Status: Active Protocol: Activity Type Activity Date Activity User E-sign Co-sign Detail Recorded Client Recorded Date Recorded By Document 12/08/22 09:09 ESTER [id number] 12/08/22 09:11 JF 12/08/22 09:09 Wound Center Nurse 2 -Time 09:10 -Correct Patient Yes -Correct Side, Site, Position Yes -Correct Procedure Yes -Procedure Performed Yes -Type of Procedure Debridement -Clinical Debridement Muscle / Fascia -Tissue Removed Muscle -Post Debridement (cm) - Length 5.7 -Post Debridement (cm) - Width 5.5 -Post Debridement (cm) - Depth 3.3 -Total Square (Post) (cm) 31.35 -Area of Debridement (cm) - Length 5.7 -Area of Debridement (cm) - Width 5.5 -Total Square (Area) (cm) 31.35 -Tunneling Yes -Tunneling Position (O'clock) 1 -Tunneling Distance (cm) 8.2 -Circular Undermining No -Wound/Ulcer Outcome Not Healed -Ulcer Cleansing Rinsed/ Irrigated with Saline -Foul Odor after Cleansing No -Bioengineered Tissue No -Bleeding Controlled with Pressure -Treatment Response Procedure Tolerated Well -Offloading No -Pressure Reduction Wheelchair cushion -Debridement - Muscle / Fascia, 1st Yes 20sq cm -Debridement, Muscle/Fascia, ea addt'l 1 20sq cm or part thereof Pain Scale: 0-10 Numeric Is Patient Pain Free? Yes - Nurse 3 - General Ulcer D/C NN Start: 12/08/22 08:52 Freq: Status: Active Protocol: Activity Type Activity Date Activity User E-sign Co-sign Detail Recorded Client Recorded Date Recorded By Document 12/08/22 09:16 KW [id number] 12/08/22 09:17 KW Document 12/08/22 09:27 DL [id number] 12/08/22 09:28 DL 12/08/22 12/08/22 09:16 09:27 Wound Care Center Nurse 3 #5- R ischium -Ulcer Cleansing Rinsed/ Not Cleansed Irrigated with Saline -Foul Odor after Cleansing No -Other Dressing dakins -Primary Dressing Covered/Secured with Dry Gauze, Dry Gauze, Secured with Secured with Tape Tape Treatment Response Procedure Tolerated Well Pain Scale: 0-10 Numeric Is Patient Pain Free? Yes Yes WC - Visit Discharge Discharge Condition Stable Stable Ambulatory Status Wheelchair Wheelchair Transportation Private Auto Medication Reconcilliation completed & No provided to patient/care provider Clinical Summary of Care Provided Yes Facility Type Home Health Orders Sent Yes Assessment/Plan Assessment/Plan (1) Right ischial pressure sore, stage 4: CODE(S): L89.314 - Pressure ulcer of right buttock, stage 4 (2) Osteomyelitis of right side of pelvis: CODE(S): M86.9 - Osteomyelitis, unspecified (3) Smoker: CODE(S): F17.200 - Nicotine dependence, unspecified, uncomplicated (4) Wheelchair dependent: CODE(S): Z99.3 - Dependence on wheelchair PLAN: Plan Patient evaluated at the wound center today. Wound care - Dakins 0.25% moistened gauze covered by ABD/super absorber daily and as needed. They have home health to help assist with his dressing changes. Will consider wound VAC at his next visit as long as the mucous from his rectum decreases. Operative tissue cultures positive for MSSA and Cutibacterium acnes. Bone cultures positive for MSSA and Corynebacterium striatum. He completed Augmentin. He was seen in the ED on 05/02/22 because of a couple falls he experienced since his surgery. CT of his pelvis showed some bony disruption at the level of the inferior pubic ramus suggests a mild osteomyelitis. Prealbumin 13.4 on 04/29/22. Anticipate increased metabolic demands from the infection. Encourage nutritional supplementation with protein to help the healing process. A wound culture was obtained on 07/14/22, which was positive for Staphylococcus aureus and was treated with Augmentin. Wound culture obtained 11/10/22 which was positive for MSSA and he is on Augmentin for that. He had a colonscopy by Dr. Romero on 06/18/22. Patient has decided he will have a colostomy, which was placed 11/21/22. Follow up 3 weeks so it will give him time to heal after her colostomy. Call or come in sooner if needed.
== END 2022-12-27 23:59 | disposition home or self-care (01) ==
LOC: WC 08:33
PROVIDERS: PCP Family Medicine; Referring Provider Physician Assistant; Visit Provider Nurse Practitioner Family
DX: L89.214 Pressure ulcer of right hip, stage 4 (principal); F17.200 Nicotine dependence, unspecified, uncomplicated; Z99.3 Dependence on wheelchair; M89.8X8 Other specified disorders of bone, other site
CPT/HCPCS: 11043; 11046

== ENCOUNTER 2023-01-19 09:00 | Outpatient (RCR) | payer BC, MEDICARE, SELFPAY ==
[2022-12-28 00:40] VITALS: BP 133/67; PULSE 80; RESP 18; TEMP 35.9; BMI 35.5
[2022-12-29 08:14] VITALS: BP 142/89; PULSE 88; RESP 16; TEMP 36.1; BMI 35.5
--- NOTE | 2022-12-29 09:47 | PN.PCM_ITS ---
History of Present Illness Date of Service: 12/29/22 Chief Complaint: Right ischial pressure sore, Stage IV. History of Wound: This is a 67-year-old white male who presented to the wound healing center with complaints of pressure ulcer to right buttock area with extension to the right ischial bone. This started in October,. Patient's was treating with OTC creams and keeping area clean. The ulcer starting increasing in size and went to the Emergency Department on 02/08/22. CT showed subcutaneous and deep soft tissue involvement and possible early abscess formation. The bone was not addressed. He had a wound culture on 02/28/22. It was positive for E. coli, Staphylococcus aureus, and Clostridium perfringens. He was treated with Augmentin. The patient has very limited mobility as a result of a prior spine injury/surgery. He utilizes a wheelchair at all times. He has not been using his billy lift at home to transfer but has been using a board to slide himself from his bed to chair at home. He sits in his wheelchair almost all day, not really able to change positions. They finally obtained a low air loss overlay to their regular mattress at home. A roho cushion was ordered for his wheelchair. Patient is a smoker. Surgery 04/28/22 - Excision right ischial pressure sore, Stage IV, with partial ostectomy for osteomyelitis. Size of wound 8 x 7 x 4.5 cm. Operative tissue cultures positive for MSSA and Cutibacterium acnes. Bone cultures positive for MSSA and Corynebacterium striatum. He is being treated with Augmentin. He had a diverting colostomy placed on 11/21/[address] Romero. Wound culture from 07/14/22 positive for Staphylococcus aureus and he was treated with Augmentin. Wound culture obtained 11/10/22 which was positive for Staphylococcus aureus and he was treated with Augmentin. Prealbumin 13.4 on 04/29/22. He was seen in the ED on 05/02/22 because of a couple falls he experienced since his surgery. CT of his pelvis showed some bony disruption at the level of the inferior pubic ramus suggests a mild osteomyelitis. Anticipate increased metabolic demands from the infection. Encourage nutritional supplementation with protein to help the healing process. Today he denies fever. His appetite is ok. Progress of Wound: The ulcer is into the muscle with small area of bone palpable that is not covered. Ulcer is stable. He is having pain with palpation of the ulcer, especially around the bone area. He had his colostomy placed at the end of October. Objective Data Objective Data Vital Signs: Vital Signs Temp Pulse Resp BP O2 Del Method 96.9 F L 88 16 142/89 H Room Air 12/29/22 08:14 12/29/22 08:14 12/29/22 08:14 12/29/22 08:14 12/29/22 08:14 Oxygen Delivery Method Room Air Weight: 220 lb Body Mass Index (BMI) 35.5 Charges/Coding Procedures Integumentary 111xxx-113xx: 27585 Lillian musc/fascia 20 sq cm/< Add On Codes: 66018 Lillian musc/fascia add-on Debridement Note Debridement Note Wound debrided: Ischial ulcer Laterality: Right Wound Grade/Stage: Stage IV Type of Debridement: Excisional debridement Anesthesia Used: 5% Lidocaine Gel Depth: Down to and including healthy tissue, in the subcutaneous layer and to muscle Percentage of wound debrided: 100 Instrument Used: 7mm curette Tissue Removed: Devitalized tissue and slough into the muscle Severity: Fat Layer Exposed Amount of bleeding with debridement: Mild Bleeding Controlled with: Pressure and Compression and gauze Patient tolerated procedure: Patient tolerated procedure well Debridement Free Text: Ulcer into the muscle, bone is palpable but not debrided. Post-Debridement Measurements and Additional Note: Post-Debridement Measurements/Treatment - Nurse 1 - General Ulcer Assessment Start: 12/29/22 08:13 Freq: Status: Active Protocol: KIRA Activity Type Activity Date Activity User E-sign Co-sign Detail Recorded Client Recorded Date Recorded By Document 12/29/22 08:14 [facility] Desktop 12/29/22 08:15 [facility] 12/29/22 08:14 - Today's Visit Information Type of service Follow-up Visit (Physician/OBSTETRICIAN AND GYNAECOLOGIST ) Arrival Mode Wheelchair Transfer Assistance Billy Lift Transfer Assist (Other) 2 Patient Identification Verified (Name & Yes ) Patient Requires Transmission-Based No Precautions Height and Weight Body Mass Index (BMI) 35.5 BMI Classification Obese Vital Signs Temperature (97.8 F-99.1 F) 96.9 F L Temperature Source Temporal Pulse Rate (60-100) 88 Pulse Location Monitor Respiratory Rate (12-18) 16 Respiratory rate source Observation Oxygen Delivery Method Room Air Blood Pressure (90/60-120/80) 142/89 H Blood Pressure Mean (mm Hg) 106 Source Monitor Position Sitting Blood Pressure Location Left Forearm History Since Last Visit- (Skip if this is Patient's initial visit) Have you changed medications since your No last visit? Any new allergies or adverse reactions No Had a fall/change in ADL's that may No increase risk of falls Signs or symptoms of abuse and/or No neglect since last visit Have you been in the hospital since your No last visit? Has dressing in place as prescribed Yes Has compression in place as prescribed N/A Has offloadiing in place as prescribed N/A Experienced any changes in pain level or No management Left Footwear Regular Shoe Right Footwear Regular Shoe Pain Scale: 0-10 Numeric Is Patient Pain Free? Yes - Nurse 1 - General Ulcer Measurement Start: 12/29/22 08:13 Freq: Status: Active Protocol: Activity Type Activity Date Activity User E-sign Co-sign Detail Recorded Client Recorded Date Recorded By Document 12/29/22 08:14 [email or web address] Desktop 12/29/22 08:15 [email or web address] 12/29/22 08:14 Wound Center Nurse 1 #5- R ischium -Combined with other wound No -Current Size (cm) - Length 5.6 -Current Size (cm) - Width 3.5 -Current Size (cm) - Depth 3.1 -Total Square Cm 19.60 -Photo Taken No -Epithelialization None Present -Tunneling Yes -Tunneling Position (O'clock) 2 -Tunneling Distance (cm) 5.5 -Undermining/Tunneling No -Circular Undermining No -Exudate Amt Large -Exudate Type Serosanguineous -Wound Margin Distinct, Outline Attached -Granulation Amt Large (67-100%) -Granulation Quality Red -Slough/Fibrin No -Necrosis Amt None Present (0 %) -Texture (Michelle-wound Skin Appearance) Assessed, Scarring -Moisture (Michelle-wound Skin Appearance) Assessed -Color (Michelle-wound Skin Appearance) Assessed -Temperature (Michelle-wound Skin No Abnormality Appearance) (Pt Warm) -Tenderness on Palpation (Michelle-wound No Skin Appearance) -Ulcer Cleansing Soap and Water -Foul Odor after Cleansing No -Anesthetic Used 4% Lidocaine Solution - Nurse 2 - General Ulcer CM Notes Start: 12/29/22 08:13 Freq: Status: Active Protocol: Activity Type Activity Date Activity User E-sign Co-sign Detail Recorded Client Recorded Date Recorded By Document 12/29/22 08:57 Laptop 12/29/22 09:02 JF 12/29/22 08:57 Wound Center Nurse 2 -Time 08:58 -Correct Patient Yes -Correct Side, Site, Position Yes -Correct Procedure Yes -Procedure Performed Yes -Type of Procedure Debridement -Clinical Debridement Muscle / Fascia -Tissue Removed Muscle,Fascia -Post Debridement (cm) - Length 6 -Post Debridement (cm) - Width 4.8 -Post Debridement (cm) - Depth 2.5 -Total Square (Post) (cm) 28.8 -Area of Debridement (cm) - Length 6.0 -Area of Debridement (cm) - Width 4.8 -Total Square (Area) (cm) 28.80 -Tunneling Yes -Tunneling Position (O'clock) 1 -Tunneling Distance (cm) 8.0 -Undermining/Tunneling No -Circular Undermining No -Wound/Ulcer Outcome Not Healed -Ulcer Cleansing Rinsed/ Irrigated with Saline -Foul Odor after Cleansing No -Bioengineered Tissue No -Bleeding Controlled with Pressure -Treatment Response Procedure Tolerated Well -Offloading No -Pressure Reduction Wheelchair cushion, Specialty bed -Debridement - Muscle / Fascia, 1st Yes 20sq cm -Debridement, Muscle/Fascia, ea addt'l 1 20sq cm or part thereof Pain Scale: 0-10 Numeric Is Patient Pain Free? Yes - Nurse 3 - General Ulcer D/C NN Start: 12/29/22 08:13 Freq: Status: Active Protocol: Activity Type Activity Date Activity User E-sign Co-sign Detail Recorded Client Recorded Date Recorded By Document 12/29/22 09:16 PL Tablet 12/29/22 09:17 PL 12/29/22 09:16 Wound Care Center Nurse 3 #5- R ischium -Ulcer Cleansing Rinsed/ Irrigated with Saline -Foul Odor after Cleansing No -Other Dressing Sue,ABD -Primary Dressing Covered/Secured with Dry Gauze, Secured with Tape Pain Scale: 0-10 Numeric Is Patient Pain Free? Yes - Visit Discharge Discharge Condition Stable Ambulatory Status Wheelchair Assessment/Plan Assessment/Plan (1) Right ischial pressure sore, stage 4: CODE(S): L89.314 - Pressure ulcer of right buttock, stage 4 (2) Osteomyelitis of right side of pelvis: CODE(S): M86.9 - Osteomyelitis, unspecified (3) Smoker: CODE(S): F17.200 - Nicotine dependence, unspecified, uncomplicated (4) Wheelchair dependent: CODE(S): Z99.3 - Dependence on wheelchair PLAN: Plan Patient evaluated at the wound center today. Wound care - Will start the wound VAC at 150 mmHg. White foam into the tunnel. Dressing to be changed three times per week. The ulcer should be washed with soap and water at the time of the dressing change. Until the wound VAC is approved continue Dakins 0.25% moistened gauze covered by ABD/super absorber daily and as needed. They have home health to help assist with his dressing changes. Operative tissue cultures positive for MSSA and Cutibacterium acnes. Bone cultures positive for MSSA and Corynebacterium striatum. He completed Augmentin. He was seen in the ED on 05/02/22 because of a couple falls he experienced since his surgery. CT of his pelvis showed some bony disruption at the level of the inferior pubic ramus suggests a mild osteomyelitis. Prealbumin 13.4 on 04/29/22. Anticipate increased metabolic demands from the infection. Encourage nutritional supplementation with protein to help the healing process. A wound culture was obtained on 07/14/22, which was positive for Staphylococcus aureus and was treated with Augmentin. Wound culture obtained 11/10/22 which was positive for MSSA and he completed the Augmentin. He had a colonscopy by Dr. Romero on 06/18/22. Patient has decided he will have a colostomy, which was placed 11/21/22. Follow up 3 weeks so it will give him time to heal after her colostomy. Call or come in sooner if needed.
[2023-01-19 08:17] VITALS: BP 118/64; PULSE 74; RESP 16; TEMP 35.9; BMI 35.5
--- NOTE | 2023-01-19 11:11 | PCM.WC.PN ---
History of Present Illness Date of Service: 01/19/23 Chief Complaint: Right ischial pressure sore, Stage IV. History of Wound: This is a 67-year-old white male who presented to the wound healing center with complaints of pressure ulcer to right buttock area with extension to the right ischial bone. This started in October,. Patient's was treating with OTC creams and keeping area clean. The ulcer starting increasing in size and went to the Emergency Department on 02/08/22. CT showed subcutaneous and deep soft tissue involvement and possible early abscess formation. The bone was not addressed. He had a wound culture on 02/28/22. It was positive for E. coli, Staphylococcus aureus, and Clostridium perfringens. He was treated with Augmentin. The patient has very limited mobility as a result of a prior spine injury/surgery. He utilizes a wheelchair at all times. He has not been using his billy lift at home to transfer but has been using a board to slide himself from his bed to chair at home. He sits in his wheelchair almost all day, not really able to change positions. They finally obtained a low air loss overlay to their regular mattress at home. A roho cushion was ordered for his wheelchair. Patient is a smoker. Surgery 04/28/22 - Excision right ischial pressure sore, Stage IV, with partial ostectomy for osteomyelitis. Size of wound 8 x 7 x 4.5 cm. Operative tissue cultures positive for MSSA and Cutibacterium acnes. Bone cultures positive for MSSA and Corynebacterium striatum. He is being treated with Augmentin. He had a diverting colostomy placed on 11/21/[address] Romero. Wound culture from 07/14/22 positive for Staphylococcus aureus and he was treated with Augmentin. Wound culture obtained 11/10/22 which was positive for Staphylococcus aureus and he was treated with Augmentin. Prealbumin 13.4 on 04/29/22. He was seen in the ED on 05/02/22 because of a couple falls he experienced since his surgery. CT of his pelvis showed some bony disruption at the level of the inferior pubic ramus suggests a mild osteomyelitis. Anticipate increased metabolic demands from the infection. Encourage nutritional supplementation with protein to help the healing process. Today he denies fever. His appetite is ok. Progress of Wound: The ulcer is into the muscle with small area of bone palpable that is not covered. Ulcer is stable. He had his colostomy placed at the end of October. Home health states that they are having a difficult time keeping the wound VAC dressing in place because the patient slides to get himself into and out of bed. He came to the wound center today and the wound VAC did not have a good seal and is is unknown how long it has been like this. He has a billy lift but is not able to use it by himself and he is home alone frequently due to his 's work schedule. Objective Data Objective Data Vital Signs: Vital Signs Temp Pulse Resp BP O2 Del Method 96.7 F L 74 16 118/64 Room Air 01/19/23 08:17 01/19/23 08:17 01/19/23 08:17 01/19/23 08:17 01/19/23 08:17 Oxygen Delivery Method Room Air Weight: 220 lb Body Mass Index (BMI) 35.5 Charges/Coding Procedures Integumentary 111xxx-113xx: 00220 Lillian musc/fascia 20 sq cm/< Add On Codes: 92223 Lillian musc/fascia add-on Debridement Note Debridement Note Wound debrided: Ischial ulcer Laterality: Right Wound Grade/Stage: Stage IV Type of Debridement: Excisional debridement Anesthesia Used: 5% Lidocaine Gel Depth: Down to and including healthy tissue, in the subcutaneous layer and to muscle Percentage of wound debrided: 100 Instrument Used: 7mm curette Tissue Removed: Devitalized tissue and slough into the muscle Severity: Fat Layer Exposed Amount of bleeding with debridement: Mild Bleeding Controlled with: Pressure and Compression and gauze Patient tolerated procedure: Patient tolerated procedure well Debridement Free Text: Ulcer into the muscle, bone is palpable but not debrided. Post-Debridement Measurements and Additional Note: Post-Debridement Measurements/Treatment - Nurse 1 - General Ulcer Assessment Start: 12/29/22 08:13 Freq: Status: Active Protocol: KIRA Activity Type Activity Date Activity User E-sign Co-sign Detail Recorded Client Recorded Date Recorded By Document 12/29/22 08:14 [facility] Desktop 12/29/22 08:15 [facility] Document 01/19/23 08:17 JF Desktop 01/19/23 08:18 12/29/22 01/19/23 08:14 08:17 - Today's Visit Information Type of service Follow-up Visit Follow-up Visit (Physician/GAS PUMPER (Physician/GAS PUMPER ) ) Arrival Mode Wheelchair Wheelchair Transfer Assistance Billy Lift Billy Lift Transfer Assist (Other) 2 Patient Identification Verified (Name & Yes Yes ) Patient Requires Transmission-Based No No Precautions Height and Weight Body Mass Index (BMI) 35.5 35.5 BMI Classification Obese Obese Vital Signs Temperature (97.8 F-99.1 F) 96.9 F L 96.7 F L Temperature Source Temporal Temporal Pulse Rate (60-100) 88 74 Pulse Location Monitor Monitor Respiratory Rate (12-18) 16 16 Respiratory rate source Observation Observation Oxygen Delivery Method Room Air Room Air Blood Pressure (90/60-120/80) 142/89 H 118/64 Blood Pressure Mean (mm Hg) 106 82 Source Monitor Monitor Position Sitting Sitting Blood Pressure Location Left Forearm Right Arm History Since Last Visit- (Skip if this is Patient's initial visit) Have you changed medications since your No No last visit? Any new allergies or adverse reactions No No Had a fall/change in ADL's that may No No increase risk of falls Signs or symptoms of abuse and/or No No neglect since last visit Have you been in the hospital since your No No last visit? Has dressing in place as prescribed Yes No Has compression in place as prescribed N/A N/A Has offloadiing in place as prescribed N/A N/A Experienced any changes in pain level or No No management Left Footwear Regular Shoe Custom Shoe Right Footwear Regular Shoe Custom Shoe Pain Scale: 0-10 Numeric Is Patient Pain Free? Yes Yes - Nurse 1 - General Ulcer Measurement Start: 12/29/22 08:13 Freq: Status: Active Protocol: Activity Type Activity Date Activity User E-sign Co-sign Detail Recorded Client Recorded Date Recorded By Document 12/29/22 08:14 [facility] Desktop 12/29/22 08:15 BM[facility] Document 01/19/23 08:17 JF Desktop 01/19/23 08:18 12/29/22 01/19/23 08:14 08:17 Wound Center Nurse 1 #5- R ischium -Combined with other wound No No -Current Size (cm) - Length 5.6 4.8 -Current Size (cm) - Width 3.5 4.4 -Current Size (cm) - Depth 3.1 4 -Total Square Cm 19.60 21.12 -Photo Taken No No -Epithelialization None Present None Present -Tunneling Yes Yes -Tunneling Position (O'clock) 2 12 -Tunneling Distance (cm) 5.5 9.4 -Undermining/Tunneling No No -Circular Undermining No No -Exudate Amt Large Large -Exudate Type Serosanguineous Serosanguineous -Wound Margin Distinct, Distinct, Outline Outline Attached Attached -Granulation Amt Large (67-100%) Large (67-100%) -Granulation Quality Red Red -Slough/Fibrin No Yes -Necrosis Amt None Present (0 Small (1-33%) %) -Necrotic Tissue Type Adherent Slough -Structure Exposed Bone -Texture (Michelle-wound Skin Appearance) Assessed, Assessed Scarring -Moisture (Michelle-wound Skin Appearance) Assessed Assessed -Color (Michelle-wound Skin Appearance) Assessed Assessed -Temperature (Michelle-wound Skin No Abnormality No Abnormality Appearance) (Pt Warm) (Pt Warm) -Tenderness on Palpation (Michelle-wound No No Skin Appearance) -Ulcer Cleansing Soap and Water Soap and Water -Foul Odor after Cleansing No No -Anesthetic Used 4% Lidocaine 4% Lidocaine Solution Solution WC - Nurse 2 - General Ulcer CM Notes Start: 12/29/22 08:13 Freq: Status: Active Protocol: Activity Type Activity Date Activity User E-sign Co-sign Detail Recorded Client Recorded Date Recorded By Document 12/29/22 08:57 Laptop 12/29/22 09:02 Document 01/19/23 08:49 Desktop 01/19/23 08:53 12/29/22 01/19/23 08:57 08:49 Wound Center Nurse 2 #5- R ischium -Time 08:58 08:50 -Correct Patient Yes Yes -Correct Side, Site, Position Yes Yes -Correct Procedure Yes Yes -Procedure Performed Yes Yes -Type of Procedure Debridement Debridement -Clinical Debridement Muscle / Fascia Muscle / Fascia -Tissue Removed Muscle,Fascia Muscle,Fascia -Post Debridement (cm) - Length 6 4.3 -Post Debridement (cm) - Width 4.8 5.5 -Post Debridement (cm) - Depth 2.5 2.5 -Total Square (Post) (cm) 28.8 23.65 -Area of Debridement (cm) - Length 6.0 4.3 -Area of Debridement (cm) - Width 4.8 5.5 -Total Square (Area) (cm) 28.80 23.65 -Tunneling Yes Yes -Tunneling Position (O'clock) 1 12 -Tunneling Distance (cm) 8.0 7.9 -Undermining/Tunneling No No -Circular Undermining No No -Wound/Ulcer Outcome Not Healed Not Healed -Ulcer Cleansing Rinsed/ Rinsed/ Irrigated with Irrigated with Saline Saline -Foul Odor after Cleansing No No -Bioengineered Tissue No No -Bleeding Controlled with Pressure Pressure -Treatment Response Procedure Procedure Tolerated Well Tolerated Well -Offloading No No -Pressure Reduction Wheelchair Wheelchair cushion, cushion Specialty bed -Debridement - Muscle / Fascia, 1st Yes Yes 20sq cm -Debridement, Muscle/Fascia, ea addt'l 1 20sq cm or part thereof Pain Scale: 0-10 Numeric Is Patient Pain Free? Yes Yes - Nurse 3 - General Ulcer D/C NN Start: 12/29/22 08:13 Freq: Status: Active Protocol: Activity Type Activity Date Activity User E-sign Co-sign Detail Recorded Client Recorded Date Recorded By Document 12/29/22 09:16 PL Tablet 12/29/22 09:17 PL Document 01/19/23 08:58 [facility] Desktop 01/19/23 09:00 BMF 12/29/22 01/19/23 09:16 08:58 Wound Care Center Nurse 3 #5- R ischium -Ulcer Cleansing Rinsed/ Rinsed/ Irrigated with Irrigated with Saline Saline -Foul Odor after Cleansing No No -Other Dressing Sue,ABD DAKINS MOIST GAUZE; PER DL COMPARATIVE SOCIOLOGY PROFESSOR -Primary Dressing Covered/Secured with Dry Gauze, Secured with Secured with Tape Tape -Other Covering ABD Treatment Response Procedure Tolerated Well Pain Scale: 0-10 Numeric Is Patient Pain Free? Yes Yes - Visit Discharge Discharge Condition Stable Stable Ambulatory Status Wheelchair [facility] Type Home Health Assessment/Plan Assessment/Plan (1) Right ischial pressure sore, stage 4: CODE(S): L89.314 - Pressure ulcer of right buttock, stage 4 (2) Osteomyelitis of right side of pelvis: CODE(S): M86.9 - Osteomyelitis, unspecified (3) Smoker: CODE(S): F17.200 - Nicotine dependence, unspecified, uncomplicated (4) Wheelchair dependent: CODE(S): Z99.3 - Dependence on wheelchair PLAN: Plan Patient evaluated at the wound center today. Wound care - Stop the wound VAC due to difficulty of keeping a good seal on the wound VAC. It is too high of a risk for infection if he is going hours with an improper seal. The ulcer should be washed with soap and water at the time of the dressing change. Start Dakins 0.25% moistened gauze covered by ABD/super absorber daily and as needed. They have home health to help assist with his dressing changes. Operative tissue cultures positive for MSSA and Cutibacterium acnes. Bone cultures positive for MSSA and Corynebacterium striatum. He completed Augmentin. He was seen in the ED on 05/02/22 because of a couple falls he experienced since his surgery. CT of his pelvis showed some bony disruption at the level of the inferior pubic ramus suggests a mild osteomyelitis. Prealbumin 13.4 on 04/29/22. Anticipate increased metabolic demands from the infection. Encourage nutritional supplementation with protein to help the healing process. A wound culture was obtained on 07/14/22, which was positive for Staphylococcus aureus and was treated with Augmentin. Wound culture obtained 11/10/22 which was positive for MSSA and he completed the Augmentin. He had a colonscopy by Dr. Romero on 06/18/22. Patient has decided he will have a colostomy, which was placed 11/21/22. Follow up 3 weeks so it will give him time to heal after her colostomy. Call or come in sooner if needed.
== END 2023-01-27 23:59 | disposition home or self-care (01) ==
LOC: WC 09:00
PROVIDERS: PCP Family Medicine; Referring Provider Physician Assistant; Visit Provider Nurse Practitioner Family
DX: L89.214 Pressure ulcer of right hip, stage 4 (principal); Z93.3 Colostomy status; F17.200 Nicotine dependence, unspecified, uncomplicated
CPT/HCPCS: 11043; 11046

== ENCOUNTER 2023-02-16 08:35 | Outpatient (RCR) | payer BC, MEDICARE, SELFPAY ==
[2023-01-28 00:48] VITALS: BP 118/64; PULSE 74; RESP 16; TEMP 35.9; BMI 35.5
[2023-02-16 08:54] VITALS: BP 136/81; PULSE 83; RESP 16; TEMP 35.2; BMI 35.5
--- NOTE | 2023-02-16 11:00 | PCM.WC.PN ---
History of Present Illness Date of Service: 02/16/23 Chief Complaint: Right ischial pressure sore, Stage IV. History of Wound: This is a 67-year-old white male who presented to the wound healing center with complaints of pressure ulcer to right buttock area with extension to the right ischial bone. This started in October,. Patient's was treating with OTC creams and keeping area clean. The ulcer starting increasing in size and went to the Emergency Department on 02/08/22. CT showed subcutaneous and deep soft tissue involvement and possible early abscess formation. The bone was not addressed. He had a wound culture on 02/28/22. It was positive for E. coli, Staphylococcus aureus, and Clostridium perfringens. He was treated with Augmentin. The patient has very limited mobility as a result of a prior spine injury/surgery. He utilizes a wheelchair at all times. He has not been using his billy lift at home to transfer but has been using a board to slide himself from his bed to chair at home. He sits in his wheelchair almost all day, not really able to change positions. They finally obtained a low air loss overlay to their regular mattress at home. A roho cushion was ordered for his wheelchair. Patient is a smoker. Surgery 04/28/22 - Excision right ischial pressure sore, Stage IV, with partial ostectomy for osteomyelitis. Size of wound 8 x 7 x 4.5 cm. Operative tissue cultures positive for MSSA and Cutibacterium acnes. Bone cultures positive for MSSA and Corynebacterium striatum. He is being treated with Augmentin. He had a diverting colostomy placed on 11/21/[address] Romero. Wound culture from 07/14/22 positive for Staphylococcus aureus and he was treated with Augmentin. Wound culture obtained 11/10/22 which was positive for Staphylococcus aureus and he was treated with Augmentin. Prealbumin 13.4 on 04/29/22. He was seen in the ED on 05/02/22 because of a couple falls he experienced since his surgery. CT of his pelvis showed some bony disruption at the level of the inferior pubic ramus suggests a mild osteomyelitis. Anticipate increased metabolic demands from the infection. Encourage nutritional supplementation with protein to help the healing process. Today he denies fever. His appetite is ok. Progress of Wound: The ulcer is into the muscle with small area of bone still palpable in the tunnel at 12 o'clock. There is undermining from 12-4. He is tolerating the daily Dakin's moistened gauze dressing changes. Objective Data Objective Data Vital Signs: Vital Signs Temp Pulse Resp BP O2 Del Method 95.3 F L 83 16 136/81 H Room Air 02/16/23 08:54 02/16/23 08:54 02/16/23 08:54 02/16/23 08:54 02/16/23 08:54 Oxygen Delivery Method Room Air Weight: 220 lb Body Mass Index (BMI) 35.5 Charges/Coding Procedures Integumentary 111xxx-113xx: 65592 Lillian musc/fascia 20 sq cm/< Add On Codes: 04032 Lillian musc/fascia add-on Debridement Note Debridement Note Wound debrided: Ischial ulcer Laterality: Right Wound Grade/Stage: Stage IV Type of Debridement: Excisional debridement Anesthesia Used: 5% Lidocaine Gel Depth: Down to and including healthy tissue, in the subcutaneous layer and to muscle Percentage of wound debrided: 100 Instrument Used: 7mm curette Tissue Removed: Devitalized tissue and slough into the muscle Severity: Fat Layer Exposed Amount of bleeding with debridement: Mild Bleeding Controlled with: Pressure and Compression and gauze Patient tolerated procedure: Patient tolerated procedure well Debridement Free Text: Ulcer into the muscle, bone is palpable but not debrided. The area where the bone is palpable is very tender to palpation. Post-Debridement Measurements and Additional Note: Post-Debridement Measurements/Treatment - Nurse 1 - General Ulcer Assessment Start: 02/16/23 08:54 Freq: Status: Active Protocol: KIRA Activity Type Activity Date Activity User E-sign Co-sign Detail Recorded Client Recorded Date Recorded By Document 02/16/23 08:54 [facility] Desktop 02/16/23 09:02 [facility] 02/16/23 08:54 - Today's Visit Information Type of service Follow-up Visit (Physician/COUNTER ATTENDANT ) Arrival Mode Wheelchair Transfer Assistance Billy Lift Transfer Assist (Other) 2 Patient Identification Verified (Name & Yes ) Patient Requires Transmission-Based No Precautions Height and Weight Body Mass Index (BMI) 35.5 BMI Classification Obese Vital Signs Temperature (97.8 F-99.1 F) 95.3 F L Temperature Source Temporal Pulse Rate (60-100) 83 Pulse Location Monitor Respiratory Rate (12-18) 16 Respiratory rate source Observation Oxygen Delivery Method Room Air Blood Pressure (90/60-120/80) 136/81 H Blood Pressure Mean (mm Hg) 99 Source Monitor Position Sitting Blood Pressure Location Left Arm History Since Last Visit- (Skip if this is Patient's initial visit) Have you changed medications since your No last visit? Any new allergies or adverse reactions No Had a fall/change in ADL's that may No increase risk of falls Signs or symptoms of abuse and/or No neglect since last visit Have you been in the hospital since your No last visit? Has dressing in place as prescribed Yes Has compression in place as prescribed N/A Has offloadiing in place as prescribed N/A Experienced any changes in pain level or No management Left Footwear Regular Shoe Right Footwear Regular Shoe Pain Scale: 0-10 Numeric Is Patient Pain Free? Yes WC - Nurse 1 - General Ulcer Measurement Start: 02/16/23 08:54 Freq: Status: Active Protocol: Activity Type Activity Date Activity User E-sign Co-sign Detail Recorded Client Recorded Date Recorded By Document 02/16/23 08:54 [facility] Desktop 02/16/23 09:02 [facility] 02/16/23 08:54 Wound Center Nurse 1 #5- R ischium -Combined with other wound No -Current Size (cm) - Length 2.5 -Current Size (cm) - Width 6.5 -Current Size (cm) - Depth 2 -Total Square Cm 16.25 -Epithelialization Small 1-33% -Tunneling Yes -Tunneling Position (O'clock) 12 -Tunneling Distance (cm) 5 -Undermining/Tunneling No -Circular Undermining No -Exudate Amt Large -Exudate Type Serosanguineous -Wound Margin Distinct, Outline Attached -Granulation Amt Large (67-100%) -Granulation Quality Red -Slough/Fibrin No -Necrosis Amt None Present (0 %) -Texture (Michelle-wound Skin Appearance) Assessed, Scarring -Moisture (Michelle-wound Skin Appearance) Assessed, Maceration -Color (Michelle-wound Skin Appearance) Assessed -Temperature (Michelle-wound Skin No Abnormality Appearance) (Pt Warm) -Tenderness on Palpation (Michelle-wound No Skin Appearance) -Ulcer Cleansing Soap and Water -Foul Odor after Cleansing No -Anesthetic Used 4% Lidocaine Solution DILCIA - Nurse 2 - General Ulcer CM Notes Start: 02/16/23 08:54 Freq: Status: Active Protocol: Activity Type Activity Date Activity User E-sign Co-sign Detail Recorded Client Recorded Date Recorded By Document 02/16/23 09:15 Laptop 02/16/23 09:17 02/16/23 09:15 Wound Center Nurse 2 -Time 09:15 -Correct Patient Yes -Correct Side, Site, Position Yes -Correct Procedure Yes -Procedure Performed Yes -Type of Procedure Debridement -Clinical Debridement Muscle / Fascia -Tissue Removed Muscle,Fascia -Post Debridement (cm) - Length 6.5 -Post Debridement (cm) - Width 4.0 -Post Debridement (cm) - Depth 1.5 -Total Square (Post) (cm) 26.00 -Area of Debridement (cm) - Length 6.5 -Area of Debridement (cm) - Width 4.0 -Total Square (Area) (cm) 26.00 -Tunneling Yes -Tunneling Position (O'clock) 12 -Tunneling Distance (cm) 8.4 -Undermining/Tunneling Yes -Undermining/Tunneling Starts (O'clock 12 ) -Undermining/Tunneling Ends (O'clock) 4 -Maximum Distance (cm) 8.4 -Circular Undermining No -Wound/Ulcer Outcome Not Healed -Ulcer Cleansing Rinsed/ Irrigated with Saline -Foul Odor after Cleansing No -Bioengineered Tissue No -Bleeding Controlled with Pressure -Treatment Response Procedure Tolerated Well -Offloading No -Pressure Reduction Wheelchair cushion -Debridement - Muscle / Fascia, 1st Yes 20sq cm -Debridement, Muscle/Fascia, ea addt'l 1 20sq cm or part thereof Pain Scale: 0-10 Numeric Is Patient Pain Free? Yes - Nurse 3 - General Ulcer D/C NN Start: 02/16/23 08:54 Freq: Status: Active Protocol: Activity Type Activity Date Activity User E-sign Co-sign Detail Recorded Client Recorded Date Recorded By Document 02/16/23 09:26 [facility] Desktop 02/16/23 09:26 DL 02/16/23 09:26 Wound Care Center Nurse 3 #5- R ischium -Ulcer Cleansing Rinsed/ Irrigated with Saline -Foul Odor after Cleansing No -Other Dressing dakins -Primary Dressing Covered/Secured with Dry Gauze, Secured with Tape Treatment Response Procedure Tolerated Well Pain Scale: 0-10 Numeric Is Patient Pain Free? Yes WC - Visit Discharge Discharge Condition Stable Ambulatory Status Wheelchair Transportation Private Auto Facility Type [facility] Orders Sent Yes Assessment/Plan Assessment/Plan (1) Right ischial pressure sore, stage 4: CODE(S): L89.314 - Pressure ulcer of right buttock, stage 4 (2) Osteomyelitis of right side of pelvis: CODE(S): M86.9 - Osteomyelitis, unspecified (3) Smoker: CODE(S): F17.200 - Nicotine dependence, unspecified, uncomplicated (4) Wheelchair dependent: CODE(S): Z99.3 - Dependence on wheelchair PLAN: Plan Patient evaluated at the wound center today. Wound care - Dakins 0.25% moistened gauze covered by ABD/super absorber daily and as needed. They have home health to help assist with his dressing changes. Operative tissue cultures positive for MSSA and Cutibacterium acnes. Bone cultures positive for MSSA and Corynebacterium striatum. He completed Augmentin. He was seen in the ED on 05/02/22 because of a couple falls he experienced since his surgery. CT of his pelvis showed some bony disruption at the level of the inferior pubic ramus suggests a mild osteomyelitis. Prealbumin 13.4 on 04/29/22. Anticipate increased metabolic demands from the infection. Encourage nutritional supplementation with protein to help the healing process. A wound culture was obtained on 07/14/22, which was positive for Staphylococcus aureus and was treated with Augmentin. Wound culture obtained 11/10/22 which was positive for MSSA and he completed the Augmentin. He had a colonscopy by Dr. Romero on 06/18/22. Patient has decided he will have a colostomy, which was placed 11/21/22. Follow up weeks with Dr. Messina.
== END 2023-02-26 23:59 | disposition home or self-care (01) ==
LOC: WC 08:35
PROVIDERS: PCP Family Medicine; Referring Provider Physician Assistant; Visit Provider Nurse Practitioner Family
DX: L89.214 Pressure ulcer of right hip, stage 4 (principal); F17.200 Nicotine dependence, unspecified, uncomplicated; Z99.3 Dependence on wheelchair
CPT/HCPCS: 11043; 11046

== ENCOUNTER → 2023-02-16 | Outpatient (CLI) | payer BC, MEDICARE, SELFPAY ==
--- NOTE | 2023-02-16 09:49 | RAD_ITS ---
STUDY: X-RAY - THORACIC SPINE REASON FOR EXAM: Male, 67 years old. Pain. TECHNIQUE: 2 view(s) of the thoracic spine were obtained on 3 images. COMPARISON: None. FINDINGS: Mild increased kyphosis. Marked thoracolumbar scoliosis. Diffuse facet sclerosis. Endplate can cavities compatible with osteoporosis. Diffuse intervertebral disc space narrowing with small osteophytes. Normal soft tissues. RAD/Thoracic Spine 2 Views IMPRESSION: Osteopenia with increased kyphosis, findings compatible with osteoporosis and diffuse intervertebral disc space narrowing with osteophytes compatible with moderate spondylosis. No acute finding. Electronically Signed: Iain Bowers MD at 10:46 EST ,
== END | disposition home or self-care (01) ==
LOC: RAD 09:48
PROVIDERS: PCP Family Medicine; Referring Provider Family Medicine; Visit Provider Family Medicine
DX: L76.82 Other postprocedural complications of skin and subcutaneous tissue (principal)
CPT/HCPCS: 72070

== ENCOUNTER 2023-03-16 09:00 | Outpatient (RCR) | payer BC, MEDICARE, SELFPAY ==
[2023-02-27 00:47] VITALS: BP 136/81; PULSE 83; RESP 16; TEMP 35.2; BMI 35.5
[2023-03-02 10:58] VITALS: BP 121/53; PULSE 84; RESP 16; TEMP 35.8; BMI 35.5
--- NOTE | 2023-03-02 12:40 | PCM.WC.PN ---
History of Present Illness Date of Service: 03/02/23 Chief Complaint: Right ischial pressure sore, Stage IV. History of Wound: This is a 67-year-old white male who presented to the wound healing center with complaints of pressure ulcer to right buttock area with extension to the right ischial bone. This started in October,. Patient's was treating with OTC creams and keeping area clean. The ulcer starting increasing in size and went to the Emergency Department on 02/08/22. CT showed subcutaneous and deep soft tissue involvement and possible early abscess formation. The bone was not addressed. He had a wound culture on 02/28/22. It was positive for E. coli, Staphylococcus aureus, and Clostridium perfringens. He was treated with Augmentin. The patient has very limited mobility as a result of a prior spine injury/surgery. He utilizes a wheelchair at all times. He has not been using his billy lift at home to transfer but has been using a board to slide himself from his bed to chair at home. He sits in his wheelchair almost all day, not really able to change positions. They finally obtained a low air loss overlay to their regular mattress at home. A roho cushion was ordered for his wheelchair. Patient is a smoker. Surgery 04/28/22 - Excision right ischial pressure sore, Stage IV, with partial ostectomy for osteomyelitis. Size of wound 8 x 7 x 4.5 cm. Operative tissue cultures positive for MSSA and Cutibacterium acnes. Bone cultures positive for MSSA and Corynebacterium striatum. He is being treated with Augmentin. Pathology from surgery 04/28/22 showed chronic reparative and reactive change. No evidence of acute osteomyelitis. He had a diverting colostomy placed on 11/21/[address] Romero. Wound culture from 07/14/22 positive for Staphylococcus aureus and he was treated with Augmentin. Wound culture obtained 11/10/22 which was positive for Staphylococcus aureus and he was treated with Augmentin. Prealbumin 13.4 on 04/29/22. Encourage nutritional supplementation with protein to help the healing process. He was seen in the ED on 05/02/22 because of a couple falls he experienced since his surgery. CT of his pelvis showed some bony disruption at the level of the inferior pubic ramus suggests a mild osteomyelitis. Today he denies fever. His appetite is ok. Progress of Wound: Slight improvement. There is a lot of dense bursal scar tissue on the edges and in the base of the ulcer. Objective Data Objective Data Vital Signs: Vital Signs Temp Pulse Resp BP O2 Del Method 96.4 F L 84 16 121/53 H Room Air 03/02/23 10:58 03/02/23 10:58 03/02/23 10:58 03/02/23 10:58 03/02/23 10:58 Oxygen Delivery Method Room Air Weight: 220 lb Body Mass Index (BMI) 35.5 Prealbumin from 04/29/22 was 13.4. Encourage nutritional supplementation with protein to help the healing process. Lab / Micro Data Attestation: I reviewed the patient's lab results. Charges/Coding Procedures Integumentary 111xxx-113xx: 82628 Lillian musc/fascia 20 sq cm/< (ICD-10 - L89.314, M86.9, F17.200, Z99.3) Add On Codes: 66972 Lillian musc/fascia add-on (ICD-10 - L89.314, M86.9, F17.200, Z99.3) Debridement Note Debridement Note Wound debrided: #5 Right ischial area. Laterality: Right Wound Grade/Stage: IV. Type of Debridement: Excisional debridement Anesthesia Used: 5% Lidocaine Gel Depth: Down to and including healthy tissue, in the subcutaneous layer, to muscle and to bone (bone is palpable but not exposed.) Percentage of wound debrided: 100 Instrument Used: 5mm curette Tissue Removed: subcutaneous tissue and muscle. Severity: Fat Layer Exposed (muscle is exposed. bone is palpable but not exposed. Bone was not debrided today.) Amount of bleeding with debridement: Mild Bleeding Controlled with: Pressure and Compression and gauze Patient tolerated procedure: Patient tolerated procedure well Post-Debridement Measurements and Additional Note: Post-Debridement Measurements/Treatment - Nurse 1 - General Ulcer Assessment Start: 03/02/23 10:58 Freq: Status: Active Protocol: DILCIA.LOWEXT Activity Type Activity Date Activity User E-sign Co-sign Detail Recorded Client Recorded Date Recorded By Document 03/02/23 10:58 [facility] Desktop 03/02/23 11:06 [facility] 03/02/23 10:58 - Today's Visit Information Type of service Follow-up Visit (Physician/TAIL SAWYER ) Arrival Mode Wheelchair Transfer Assistance Billy Lift Patient Identification Verified (Name & Yes ) Patient Requires Transmission-Based No Precautions Height and Weight Body Mass Index (BMI) 35.5 BMI Classification Obese Vital Signs Temperature (97.8 F-99.1 F) 96.4 F L Temperature Source Temporal Pulse Rate (60-100) 84 Pulse Location Monitor Respiratory Rate (12-18) 16 Respiratory rate source Observation Oxygen Delivery Method Room Air Blood Pressure (90/60-120/80) 121/53 H Blood Pressure Mean (mm Hg) 75 Source Monitor Position Sitting Blood Pressure Location Left Arm History Since Last Visit- (Skip if this is Patient's initial visit) Have you changed medications since your No last visit? Any new allergies or adverse reactions No Had a fall/change in ADL's that may No increase risk of falls Signs or symptoms of abuse and/or No neglect since last visit Have you been in the hospital since your No last visit? Has dressing in place as prescribed Yes Has compression in place as prescribed N/A Has offloadiing in place as prescribed N/A Experienced any changes in pain level or No management Left Footwear Regular Shoe Right Footwear Regular Shoe Pain Scale: 0-10 Numeric Is Patient Pain Free? Yes - Nurse 1 - General Ulcer Measurement Start: 03/02/23 10:58 Freq: Status: Active Protocol: Activity Type Activity Date Activity User E-sign Co-sign Detail Recorded Client Recorded Date Recorded By Document 03/02/23 10:58 [facility] Desktop 03/02/23 11:06 [facility] 03/02/23 10:58 Wound Center Nurse 1 #5- R ischium -Combined with other wound No -Current Size (cm) - Length 6 -Current Size (cm) - Width 5 -Current Size (cm) - Depth 3.4 -Total Square Cm 30 -Photo Taken No -Tunneling Yes -Tunneling Position (O'clock) 12 -Tunneling Distance (cm) 7.7 -Undermining/Tunneling No -Circular Undermining No -Exudate Amt Large -Exudate Type Serosanguineous -Wound Margin Distinct, Outline Attached -Granulation Amt Large (67-100%) -Granulation Quality Red -Slough/Fibrin No -Necrosis Amt None Present (0 %) -Structure Exposed Bone -Texture (Michelle-wound Skin Appearance) Assessed, Scarring -Moisture (Michelle-wound Skin Appearance) Assessed, Maceration -Color (Michelle-wound Skin Appearance) Assessed -Temperature (Michelle-wound Skin No Abnormality Appearance) (Pt Warm) -Tenderness on Palpation (Michelle-wound Yes Skin Appearance) -Ulcer Cleansing Soap and Water -Foul Odor after Cleansing No -Anesthetic Used 4% Lidocaine Solution DILCIA - Nurse 2 - General Ulcer CM Notes Start: 03/02/23 10:58 Freq: Status: Active Protocol: Activity Type Activity Date Activity User E-sign Co-sign Detail Recorded Client Recorded Date Recorded By Document 03/02/23 11:22 Laptop 03/02/23 11:31 03/02/23 11:22 Wound Center Nurse 2 -Time 11:24 -Correct Patient Yes -Correct Side, Site, Position Yes -Correct Procedure Yes -Procedure Performed Yes -Type of Procedure Debridement -Clinical Debridement Muscle / Fascia -Tissue Removed Muscle,Fascia -Post Debridement (cm) - Length 6.1 -Post Debridement (cm) - Width 5.1 -Post Debridement (cm) - Depth 3.5 -Total Square (Post) (cm) 31.11 -Area of Debridement (cm) - Length 6.1 -Area of Debridement (cm) - Width 5.1 -Total Square (Area) (cm) 31.11 -Tunneling Yes -Tunneling Position (O'clock) 12 -Tunneling Distance (cm) 7.8 -Undermining/Tunneling No -Circular Undermining No -Wound/Ulcer Outcome Not Healed -Ulcer Cleansing Rinsed/ Irrigated with Saline -Foul Odor after Cleansing No -Bioengineered Tissue No -Bleeding Controlled with Pressure -Treatment Response Procedure Tolerated Well -Offloading No -Pressure Reduction Wheelchair cushion -Debridement - Muscle / Fascia, 1st Yes 20sq cm -Debridement, Muscle/Fascia, ea addt'l 1 20sq cm or part thereof Pain Scale: 0-10 Numeric Is Patient Pain Free? Yes DILCIA - Nurse 3 - General Ulcer D/C NN Start: 03/02/23 10:58 Freq: Status: Active Protocol: Activity Type Activity Date Activity User E-sign Co-sign Detail Recorded Client Recorded Date Recorded By Document 03/02/23 11:35 [facility] Desktop 03/02/23 11:36 [facility] 03/02/23 11:35 Wound Care Center Nurse 3 #5- R ischium -Ulcer Cleansing Rinsed/ Irrigated with Saline -Foul Odor after Cleansing No -Other Dressing dakin moist gauze -Primary Dressing Covered/Secured with Secured with Tape -Other Covering abd; per dl chief yeoman Treatment Response Procedure Tolerated Well Pain Scale: 0-10 Numeric Is Patient Pain Free? Yes WC - Visit Discharge Discharge Condition Stable Ambulatory Status Wheelchair Transportation transit co. Facility Type Home Health Assessment/Plan Assessment/Plan (1) Right ischial pressure sore, stage 4: CODE(S): L89.314 - Pressure ulcer of right buttock, stage 4 (2) Osteomyelitis of right side of pelvis: CODE(S): M86.9 - Osteomyelitis, unspecified (3) Smoker: CODE(S): F17.200 - Nicotine dependence, unspecified, uncomplicated (4) Wheelchair dependent: CODE(S): Z99.3 - Dependence on wheelchair PLAN: Plan Wound care - Dakins 0.25% moistened gauze covered by ABD/super absorber daily and as needed. They have home health to help assist with his dressing changes. Operative tissue cultures positive for MSSA and Cutibacterium acnes. Bone cultures positive for MSSA and Corynebacterium striatum. He completed Augmentin. He was seen in the ED on 05/02/22 because of a couple falls he experienced since his surgery. CT of his pelvis showed some bony disruption at the level of the inferior pubic ramus suggests a mild osteomyelitis. Prealbumin 13.4 on 04/29/22. Anticipate increased metabolic demands from the infection. Encourage nutritional supplementation with protein to help the healing process. A wound culture was obtained on 07/14/22, which was positive for Staphylococcus aureus and was treated with Augmentin. Wound culture obtained 11/10/22 which was positive for MSSA and he completed the Augmentin. Patient had a diverting colostomy on 11/21/22. The diversion of the stool has made a noticeable difference in the healing of the ulcer. The ulcer is ready for further operative debridement in preparation for closure with a fasciocutaneous flap or a muscle flap since he is wheelchair dependent. The patient has expressed interest in pursuing further surgery with the goal of a closed wound. Patient is a smoker. Encouraged patient to stop smoking as it may have deleterious effects on wound healing. It will affect the healing of the flap and may lead to incisional breakdown and recurrence of the pressure sore. He states he will try to stop smoking. Since this is an elective procedure, we are in no hurry to proceed. So will check a nicotine level prior to any surgery that is scheduled. Also would like to maximize his nutrition which would maximize the healing process. His last Prealbumin from 04/29/22 was 13.4. Ideally would like to see it above 20. At the time of the excision of the pressure sore, will check soft tissue and bone cultures. A positive culture will necessitate antibiotic therapy. This way we will know which antibiotics to use perioperatively. If the culture shows MRSA or Pseudomonas or MDR organisms, I would treat for 6 weeks before proceeding with wound closure. Postoperatively he will be on bedrest and would most likely benefit from a stay at an [facility] during this time. Patient was informed of the risks and complications of the procedure including alternatives to surgery. These were discussed with the patient personally. Patient voices understanding and wishes to proceed. Potential risks and complications included but not inclusive of bleeding, infection, seroma, hematoma, bruising, swelling, prolonged need for drains, loss of sensation to skin, partial or complete loss of skin flap and/or skin graft, wound breakdown, need for wound care, poor scarring, poor aesthetic outcome, intra operative cardiac or neurologic events, DVT, PE, and reaction to anesthesia. Until the surgery, continue followup at the Wound Center in 2 weeks.
[2023-03-16 08:57] VITALS: BP 145/74; PULSE 91; RESP 18; TEMP 36.2; BMI 35.5
--- NOTE | 2023-03-16 11:54 | PCM.WC.PN ---
History of Present Illness Date of Service: 03/16/23 Chief Complaint: Right ischial pressure sore, Stage IV. History of Wound: This is a 67-year-old white male who presented to the wound healing center with complaints of pressure ulcer to right buttock area with extension to the right ischial bone. This started in October,. Patient's was treating with OTC creams and keeping area clean. The ulcer starting increasing in size and went to the Emergency Department on 02/08/22. CT showed subcutaneous and deep soft tissue involvement and possible early abscess formation. The bone was not addressed. He had a wound culture on 02/28/22. It was positive for E. coli, Staphylococcus aureus, and Clostridium perfringens. He was treated with Augmentin. The patient has very limited mobility as a result of a prior spine injury/surgery. He utilizes a wheelchair at all times. He has not been using his billy lift at home to transfer but has been using a board to slide himself from his bed to chair at home. He sits in his wheelchair almost all day, not really able to change positions. They finally obtained a low air loss overlay to their regular mattress at home. A roho cushion was ordered for his wheelchair. Patient is a smoker. Surgery 04/28/22 - Excision right ischial pressure sore, Stage IV, with partial ostectomy for osteomyelitis. Size of wound 8 x 7 x 4.5 cm. Operative tissue cultures positive for MSSA and Cutibacterium acnes. Bone cultures positive for MSSA and Corynebacterium striatum. He is being treated with Augmentin. Pathology from surgery 04/28/22 showed chronic reparative and reactive change. No evidence of acute osteomyelitis. He had a diverting colostomy placed on 11/21/[address] Romero. Wound culture from 07/14/22 positive for Staphylococcus aureus and he was treated with Augmentin. Wound culture obtained 11/10/22 which was positive for Staphylococcus aureus and he was treated with Augmentin. Prealbumin 13.4 on 04/29/22. Encourage nutritional supplementation with protein to help the healing process. He was seen in the ED on 05/02/22 because of a couple falls he experienced since his surgery. CT of his pelvis showed some bony disruption at the level of the inferior pubic ramus suggests a mild osteomyelitis. Today he denies fever. His appetite is ok. Progress of Wound: Stable. Bone still palpable and is painful when palpated. His tunneling has not improved. Objective Data Objective Data Vital Signs: Vital Signs Temp Pulse Resp BP O2 Del Method 97.1 F L 91 18 145/74 H Room Air 03/16/23 08:57 03/16/23 08:57 03/16/23 08:57 03/16/23 08:57 03/16/23 08:57 Oxygen Delivery Method Room Air Weight: 220 lb Body Mass Index (BMI) 35.5 Charges/Coding Procedures Integumentary 111xxx-113xx: 61510 Lillian musc/fascia 20 sq cm/< (ICD-10 - L89.314, M86.9, F17.200, Z99.3) Add On Codes: 48215 Lillian musc/fascia add-on (ICD-10 - L89.314, M86.9, F17.200, Z99.3) Debridement Note Debridement Note Wound debrided: #5 Right ischial area. Laterality: Right Wound Grade/Stage: IV. Type of Debridement: Excisional debridement Anesthesia Used: 5% Lidocaine Gel Depth: Down to and including healthy tissue, in the subcutaneous layer, to muscle and to bone (bone is palpable but not exposed.) Percentage of wound debrided: 100 Instrument Used: 7mm curette Tissue Removed: subcutaneous tissue and muscle. Severity: Fat Layer Exposed (muscle is exposed. bone is palpable but not exposed. Bone was not debrided today.) Amount of bleeding with debridement: Mild Bleeding Controlled with: Pressure and Compression and gauze Patient tolerated procedure: Patient tolerated procedure well Debridement Free Text: Bone palpated but not debrided. Post-Debridement Measurements and Additional Note: Post-Debridement Measurements/Treatment - Nurse 1 - General Ulcer Assessment Start: 03/02/23 10:58 Freq: Status: Active Protocol: KIRA Activity Type Activity Date Activity User E-sign Co-sign Detail Recorded Client Recorded Date Recorded By Document 03/02/23 10:58 [facility] Desktop 03/02/23 11:06 [facility] Document 03/16/23 08:57 KW Desktop 03/16/23 09:07 KW 03/02/23 03/16/23 10:58 08:57 - Today's Visit Information Type of service Follow-up Visit Follow-up Visit (Physician/GINSENG FARMER (Physician/GINSENG FARMER ) ) Arrival Mode Wheelchair Wheelchair Transfer Assistance Billy Lift Billy Lift Transfer Assist (Other) BF Patient Identification Verified (Name & Yes Yes ) Patient Requires Transmission-Based No Precautions Height and Weight Body Mass Index (BMI) 35.5 35.5 BMI Classification Obese Obese Vital Signs Temperature (97.8 F-99.1 F) 96.4 F L 97.1 F L Temperature Source Temporal Temporal Pulse Rate (60-100) 84 91 Pulse Location Monitor Monitor Respiratory Rate (12-18) 16 18 Respiratory rate source Observation Observation Oxygen Delivery Method Room Air Room Air Blood Pressure (90/60-120/80) 121/53 H 145/74 H Blood Pressure Mean (mm Hg) 75 97 Source Monitor Monitor Position Sitting Sitting Blood Pressure Location Left Arm Left Arm History Since Last Visit- (Skip if this is Patient's initial visit) Have you changed medications since your No No last visit? Any new allergies or adverse reactions No No Had a fall/change in ADL's that may No No increase risk of falls Signs or symptoms of abuse and/or No No neglect since last visit Have you been in the hospital since your No No last visit? Has dressing in place as prescribed Yes Yes Has compression in place as prescribed N/A No Has offloadiing in place as prescribed N/A No Experienced any changes in pain level or No No management Left Footwear Regular Shoe Regular Shoe Right Footwear Regular Shoe Regular Shoe Pain Scale: 0-10 Numeric Is Patient Pain Free? Yes Yes WC - Nurse 1 - General Ulcer Measurement Start: 03/02/23 10:58 Freq: Status: Active Protocol: Activity Type Activity Date Activity User E-sign Co-sign Detail Recorded Client Recorded Date Recorded By Document 03/02/23 10:58 [facility] Desktop 03/02/23 11:06 BM Document 03/16/23 08:57 KW Desktop 03/16/23 09:07 KW 03/02/23 03/16/23 10:58 08:57 Wound Center Nurse 1 #5- R ischium -Combined with other wound No -Current Size (cm) - Length 6 5.7 -Current Size (cm) - Width 5 4.0 -Current Size (cm) - Depth 3.4 3.4 -Total Square Cm 30 22.80 -Photo Taken No -Tunneling Yes Yes -Tunneling Position (O'clock) 12 12 -Tunneling Distance (cm) 7.7 7.9 -Undermining/Tunneling No -Circular Undermining No -Exudate Amt Large Medium -Exudate Type Serosanguineous Serosanguineous -Wound Margin Distinct, Distinct, Outline Outline Attached Attached -Granulation Amt Large (67-100%) Large (67-100%) -Granulation Quality Red Red -Slough/Fibrin No -Necrosis Amt None Present (0 %) -Structure Exposed Bone -Texture (Michelle-wound Skin Appearance) Assessed, Assessed Scarring -Moisture (Michelle-wound Skin Appearance) Assessed, Maceration Maceration -Color (Michelle-wound Skin Appearance) Assessed Assessed -Temperature (Michelle-wound Skin No Abnormality No Abnormality Appearance) (Pt Warm) (Pt Warm) -Tenderness on Palpation (Michelle-wound Yes No Skin Appearance) -Ulcer Cleansing Soap and Water Soap and Water -Foul Odor after Cleansing No No -Anesthetic Used 4% Lidocaine 4% Lidocaine Solution Solution Lower Limb Edema Present NA WC - Nurse 2 - General Ulcer CM Notes Start: 03/02/23 10:58 Freq: Status: Active Protocol: Activity Type Activity Date Activity User E-sign Co-sign Detail Recorded Client Recorded Date Recorded By Document 03/02/23 11:22 Laptop 03/02/23 11:31 Document 03/16/23 09:19 Laptop 03/16/23 09:21 03/02/23 03/16/23 11:22 09:19 Wound Center Nurse 2 #5- R ischium -Time 11:24 09:20 -Correct Patient Yes Yes -Correct Side, Site, Position Yes Yes -Correct Procedure Yes Yes -Procedure Performed Yes Yes -Type of Procedure Debridement Debridement -Clinical Debridement Muscle / Fascia Muscle / Fascia -Tissue Removed Muscle,Fascia Muscle -Post Debridement (cm) - Length 6.1 5.5 -Post Debridement (cm) - Width 5.1 5 -Post Debridement (cm) - Depth 3.5 2.6 -Total Square (Post) (cm) 31.11 27.5 -Area of Debridement (cm) - Length 6.1 5.5 -Area of Debridement (cm) - Width 5.1 5 -Total Square (Area) (cm) 31.11 27.5 -Tunneling Yes No -Tunneling Position (O'clock) 12 -Tunneling Distance (cm) 7.8 -Undermining/Tunneling No No -Circular Undermining No No -Wound/Ulcer Outcome Not Healed Not Healed -Ulcer Cleansing Rinsed/ Rinsed/ Irrigated with Irrigated with Saline Saline -Foul Odor after Cleansing No No -Bioengineered Tissue No No -Bleeding Controlled with Pressure Pressure -Treatment Response Procedure Procedure Tolerated Well Tolerated Well -Offloading No No -Pressure Reduction Wheelchair Wheelchair cushion cushion, Mattress overlay -Debridement - Muscle / Fascia, 1st Yes Yes 20sq cm -Debridement, Muscle/Fascia, ea addt'l 1 1 20sq cm or part thereof Pain Scale: 0-10 Numeric Is Patient Pain Free? Yes Yes - Nurse 3 - General Ulcer D/C NN Start: 03/02/23 10:58 Freq: Status: Active Protocol: Activity Type Activity Date Activity User E-sign Co-sign Detail Recorded Client Recorded Date Recorded By Document 03/02/23 11:35 [facility] 03/02/23 11:36 [facility] Document 03/16/23 09:26 [facility] Desktop 03/16/23 09:26 [facility] 03/02/23 03/16/23 11:35 09:26 Wound Care Center Nurse 3 #5- R ischium -Ulcer Cleansing Rinsed/ Rinsed/ Irrigated with Irrigated with Saline Saline -Foul Odor after Cleansing No No -Other Dressing dakin moist dakins moist gauze gauze -Primary Dressing Covered/Secured with Secured with Secured with Tape Tape -Other Covering abd; per dl scientific diver abd Treatment Response Procedure Procedure Tolerated Well Tolerated Well Pain Scale: 0-10 Numeric Is Patient Pain Free? Yes Yes WC - Visit Discharge Discharge Condition Stable Stable Ambulatory Status Wheelchair Wheelchair Transportation transit co. Facility Type Home Health Home Health Assessment/Plan Assessment/Plan (1) Right ischial pressure sore, stage 4: CODE(S): L89.314 - Pressure ulcer of right buttock, stage 4 (2) Osteomyelitis of right side of pelvis: CODE(S): M86.9 - Osteomyelitis, unspecified (3) Smoker: CODE(S): F17.200 - Nicotine dependence, unspecified, uncomplicated (4) Wheelchair dependent: CODE(S): Z99.3 - Dependence on wheelchair PLAN: Plan Wound care - Dakins 0.25% moistened gauze covered by ABD/super absorber daily and as needed. They have home health to help assist with his dressing changes. Operative tissue cultures positive for MSSA and Cutibacterium acnes. Bone cultures positive for MSSA and Corynebacterium striatum. He completed Augmentin. He was seen in the ED on 05/02/22 because of a couple falls he experienced since his surgery. CT of his pelvis showed some bony disruption at the level of the inferior pubic ramus suggests a mild osteomyelitis. Prealbumin 13.4 on 04/29/22. Anticipate increased metabolic demands from the infection. Encourage nutritional supplementation with protein to help the healing process. A wound culture was obtained on 07/14/22, which was positive for Staphylococcus aureus and was treated with Augmentin. Wound culture obtained 11/10/22 which was positive for MSSA and he completed the Augmentin. Patient had a diverting colostomy on 11/21/22. The diversion of the stool has made a noticeable difference in the healing of the ulcer. The ulcer is ready for further operative debridement in preparation for closure with a fasciocutaneous flap or a muscle flap since he is wheelchair dependent. The patient has expressed interest in pursuing further surgery with the goal of a closed wound. Patient is a smoker. Encouraged patient to stop smoking as it may have deleterious effects on wound healing. It will affect the healing of the flap and may lead to incisional breakdown and recurrence of the pressure sore. He states he will try to stop smoking. Since this is an elective procedure, we are in no hurry to proceed. So will check a nicotine level prior to any surgery that is scheduled. Also would like to maximize his nutrition which would maximize the healing process. His last Prealbumin from 04/29/22 was 13.4. Ideally would like to see it above 20. At the time of the excision of the pressure sore, will check soft tissue and bone cultures. A positive culture will necessitate antibiotic therapy. This way we will know which antibiotics to use perioperatively. If the culture shows MRSA or Pseudomonas or MDR organisms, I would treat for 6 weeks before proceeding with wound closure. Postoperatively he will be on bedrest and would most likely benefit from a [facility] an [facility] during this time. Patient was informed of the risks and complications of the procedure including alternatives to surgery. These were discussed with the patient personally. Patient voices understanding and wishes to proceed. Potential risks and complications included but not inclusive of bleeding, infection, seroma, hematoma, bruising, swelling, prolonged need for drains, loss of sensation to skin, partial or complete loss of skin flap and/or skin graft, wound breakdown, need for wound care, poor scarring, poor aesthetic outcome, intra operative cardiac or neurologic events, DVT, PE, and reaction to anesthesia. Encouraged increased protein intake to help with wound healing. Follow up 3 weeks.
== END 2023-03-29 23:59 | disposition home or self-care (01) ==
LOC: WC 09:00
PROVIDERS: PCP Family Medicine; Referring Provider Physician Assistant; Visit Provider Nurse Practitioner Family
DX: L89.214 Pressure ulcer of right hip, stage 4 (principal); L89.314 Pressure ulcer of right buttock, stage 4; F17.200 Nicotine dependence, unspecified, uncomplicated; Z99.3 Dependence on wheelchair
CPT/HCPCS: 11043; 11046

== ENCOUNTER 2023-04-21 13:30 | Outpatient (RCR) | payer BC, MEDICARE, SELFPAY ==
[2023-03-30 00:45] VITALS: BP 145/74; PULSE 91; RESP 18; TEMP 36.2; BMI 35.5
[2023-04-06 09:18] VITALS: BP 118/77; PULSE 84; RESP 20; TEMP 36; BMI 35.5
--- NOTE | 2023-04-06 11:59 | PCM.WC.PN ---
History of Present Illness Date of Service: 04/06/23 Chief Complaint: Right ischial pressure sore, Stage IV. History of Wound: This is a 67-year-old white male who presented to the wound healing center with complaints of pressure ulcer to right buttock area with extension to the right ischial bone. This started in October,. Patient's was treating with OTC creams and keeping area clean. The ulcer starting increasing in size and went to the Emergency Department on 02/08/22. CT showed subcutaneous and deep soft tissue involvement and possible early abscess formation. The bone was not addressed. He had a wound culture on 02/28/22. It was positive for E. coli, Staphylococcus aureus, and Clostridium perfringens. He was treated with Augmentin. The patient has very limited mobility as a result of a prior spine injury/surgery. He utilizes a wheelchair at all times. He has not been using his billy lift at home to transfer but has been using a board to slide himself from his bed to chair at home. He sits in his wheelchair almost all day, not really able to change positions. They finally obtained a low air loss overlay to their regular mattress at home. A roho cushion was ordered for his wheelchair. Patient is a smoker. Surgery 04/28/22 - Excision right ischial pressure sore, Stage IV, with partial ostectomy for osteomyelitis. Size of wound 8 x 7 x 4.5 cm. Operative tissue cultures positive for MSSA and Cutibacterium acnes. Bone cultures positive for MSSA and Corynebacterium striatum. He is being treated with Augmentin. Pathology from surgery 04/28/22 showed chronic reparative and reactive change. No evidence of acute osteomyelitis. He had a diverting colostomy placed on 11/21/[address] Romero. Wound culture from 07/14/22 positive for Staphylococcus aureus and he was treated with Augmentin. Wound culture obtained 11/10/22 which was positive for Staphylococcus aureus and he was treated with Augmentin. Prealbumin 13.4 on 04/29/22. Encourage nutritional supplementation with protein to help the healing process. He was seen in the ED on 05/02/22 because of a couple falls he experienced since his surgery. CT of his pelvis showed some bony disruption at the level of the inferior pubic ramus suggests a mild osteomyelitis. Today he denies fever. His appetite is ok. Progress of Wound: Stable. Bone still palpable but covered with granulation tissue. It is very painful when palpated. A wound culture was obtained today.? A positive culture will necessitate antibiotic therapy. Objective Data Objective Data Vital Signs: Vital Signs Temp Pulse Resp BP 96.8 F L 84 20 H 118/77 04/06/23 09:18 04/06/23 09:18 04/06/23 09:18 04/06/23 09:18 Weight: 220 lb Body Mass Index (BMI) 35.5 Charges/Coding Procedures Integumentary 111xxx-113xx: [id number] Lillian musc/fascia 20 sq cm/< (ICD-10 - L89.314, M86.9, F17.200, Z99.3) Add On Codes: 76377 Lillian musc/fascia add-on (ICD-10 - L89.314, M86.9, F17.200, Z99.3) Debridement Note Debridement Note Wound debrided: #5 Right ischial area. Laterality: Right Wound Grade/Stage: IV. Type of Debridement: Excisional debridement Anesthesia Used: 5% Lidocaine Gel Depth: Down to and including healthy tissue, in the subcutaneous layer, to muscle and to bone (bone is palpable but not exposed.) Percentage of wound debrided: 100 Instrument Used: 7mm curette Tissue Removed: subcutaneous tissue and muscle. Severity: Fat Layer Exposed (muscle is exposed. bone is palpable but not exposed. Bone was not debrided today.) Amount of bleeding with debridement: Mild Bleeding Controlled with: Pressure and Compression and gauze Patient tolerated procedure: Patient tolerated procedure well Debridement Free Text: Bone palpated but not debrided. Post-Debridement Measurements and Additional Note: Post-Debridement Measurements/Treatment - Nurse 1 - General Ulcer Assessment Start: 04/06/23 09:18 Freq: Status: Active Protocol: KIRA Activity Type Activity Date Activity User E-sign Co-sign Detail Recorded Client Recorded Date Recorded By Document 04/06/23 09:18 DL Desktop 04/06/23 09:30 DL 04/06/23 09:18 - Today's Visit Information Type of service Follow-up Visit (Physician/TI[employer]IC[employer] ) Arrival Mode Wheelchair Transfer Assistance Billy Lift Patient Identification Verified (Name & Yes ) Patient Requires Transmission-Based No Precautions Height and Weight Body Mass Index (BMI) 35.5 BMI Classification Obese Vital Signs Temperature (97.8 F-99.1 F) 96.8 F L Temperature Source Temporal Pulse Rate (60-100) 84 Pulse Location Monitor Respiratory Rate (12-18) 20 H Respiratory rate source Observation Blood Pressure (90/60-120/80) 118/77 Blood Pressure Mean (mm Hg) 90 Source Monitor History Since Last Visit- (Skip if this is Patient's initial visit) Have you changed medications since your No last visit? Any new allergies or adverse reactions No Had a fall/change in ADL's that may No increase risk of falls Signs or symptoms of abuse and/or No neglect since last visit Have you been in the hospital since your No last visit? Has dressing in place as prescribed Yes Has compression in place as prescribed N/A Has offloadiing in place as prescribed Yes Experienced any changes in pain level or No management Pain Scale: 0-10 Numeric Is Patient Pain Free? Yes WC - Nurse 1 - General Ulcer Measurement Start: 04/06/23 09:18 Freq: Status: Active Protocol: Activity Type Activity Date Activity User E-sign Co-sign Detail Recorded Client Recorded Date Recorded By Document 04/06/23 09:18 DL Desktop 04/06/23 09:30 DL 04/06/23 09:18 Wound Center Nurse 1 #5- R ischium -Combined with other wound No -Current Size (cm) - Length 5 -Current Size (cm) - Width 4.8 -Current Size (cm) - Depth 2.6 -Total Square Cm 24.0 -Date of Last Picture (Recall this 04/06/23 field) -Photo Taken Yes -Epithelialization None Present -Tunneling Yes -Tunneling Position (O'clock) 1 -Tunneling Distance (cm) 7.8 -Undermining/Tunneling No -Circular Undermining No -Exudate Amt Large -Exudate Type Serosanguineous -Wound Margin Distinct, Outline Attached -Granulation Amt Large (67-100%) -Granulation Quality Red -Slough/Fibrin No -Necrosis Amt None Present (0 %) -Texture (Michelle-wound Skin Appearance) Assessed, Scarring -Moisture (Michelle-wound Skin Appearance) Assessed -Color (Michelle-wound Skin Appearance) Assessed -Temperature (Michelle-wound Skin No Abnormality Appearance) (Pt Warm) -Tenderness on Palpation (Michelle-wound No Skin Appearance) -Ulcer Cleansing Soap and Water -Foul Odor after Cleansing No -Anesthetic Used 4% Lidocaine Solution DILCIA - Nurse 2 - General Ulcer CM Notes Start: 04/06/23 09:18 Freq: Status: Active Protocol: Activity Type Activity Date Activity User E-sign Co-sign Detail Recorded Client Recorded Date Recorded By Document 04/06/23 10:08 Laptop 04/06/23 10:13 JF 04/06/23 10:08 Wound Center Nurse 2 -Time 10:08 -Correct Patient Yes -Correct Side, Site, Position Yes -Correct Procedure Yes -Procedure Performed Yes -Type of Procedure Debridement -Clinical Debridement Muscle / Fascia -Tissue Removed Muscle,Fascia -Post Debridement (cm) - Length 5.0 -Post Debridement (cm) - Width 5.5 -Post Debridement (cm) - Depth 2.0 -Total Square (Post) (cm) 27.50 -Area of Debridement (cm) - Length 5.0 -Area of Debridement (cm) - Width 5.5 -Total Square (Area) (cm) 27.50 -Tunneling Yes -Tunneling Position (O'clock) 12 -Tunneling Distance (cm) 5.8 -Undermining/Tunneling No -Circular Undermining No -Wound/Ulcer Outcome Not Healed -Ulcer Cleansing Rinsed/ Irrigated with Saline -Foul Odor after Cleansing No -Bioengineered Tissue No -Bleeding Controlled with Pressure -Treatment Response Procedure Tolerated Well -Offloading No -Debridement - Muscle / Fascia, 1st Yes 20sq cm -Debridement, Muscle/Fascia, ea addt'l 1 20sq cm or part thereof Pain Scale: 0-10 Numeric Is Patient Pain Free? Yes DILCIA - Nurse 3 - General Ulcer D/C NN Start: 04/06/23 09:18 Freq: Status: Active Protocol: Activity Type Activity Date Activity User E-sign Co-sign Detail Recorded Client Recorded Date Recorded By Document 04/06/23 10:17 DL Desktop 04/06/23 10:18 DL 04/06/23 10:17 Wound Care Center Nurse 3 #5- R ischium -Ulcer Cleansing Rinsed/ Irrigated with Saline -Foul Odor after Cleansing No -Other Dressing dakins -Primary Dressing Covered/Secured with Dry Gauze & Roll Gauze, Secured with Tape -Other Covering ABD Treatment Response Procedure Tolerated Well Pain Scale: 0-10 Numeric Is Patient Pain Free? Yes WC - Visit Discharge Discharge Condition Stable Ambulatory Status Wheelchair Facility Type Home Health Orders Sent Yes Assessment/Plan Assessment/Plan (1) Right ischial pressure sore, stage 4: CODE(S): L89.314 - Pressure ulcer of right buttock, stage 4 (2) Osteomyelitis of right side of pelvis: CODE(S): M86.9 - Osteomyelitis, unspecified (3) Smoker: CODE(S): F17.200 - Nicotine dependence, unspecified, uncomplicated (4) Wheelchair dependent: CODE(S): Z99.3 - Dependence on wheelchair PLAN: Plan Wound care - Dakins 0.25% moistened gauze covered by ABD/super absorber daily and as needed. They have home health to help assist with his dressing changes. A wound culture was obtained today, 04/06/23.? A positive culture will necessitate antibiotic therapy. Operative tissue cultures positive for MSSA and Cutibacterium acnes. Bone cultures positive for MSSA and Corynebacterium striatum. He completed Augmentin. He was seen in the ED on 05/02/22 because of a couple falls he experienced since his surgery. CT of his pelvis showed some bony disruption at the level of the inferior pubic ramus suggests a mild osteomyelitis. Prealbumin 13.4 on 04/29/22. Anticipate increased metabolic demands from the infection. Encourage nutritional supplementation with protein to help the healing process. A wound culture was obtained on 07/14/22, which was positive for Staphylococcus aureus and was treated with Augmentin. Wound culture obtained 11/10/22 which was positive for MSSA and he completed the Augmentin. Patient had a diverting colostomy on 11/21/22. The diversion of the stool has made a noticeable difference in the healing of the ulcer. Encouraged increased protein intake to help with wound healing. Encouraged patient to stop smoking as it may have deleterious effects on wound healing. Stressed importance of not smoking how how it impacts wound healing and potential future surgeries, including flaps, he should really stop smoking. Follow up 2 weeks. From previous note from Dr. Messina: The ulcer is ready for further operative debridement in preparation for closure with a fasciocutaneous flap or a muscle flap since he is wheelchair dependent. The patient has expressed interest in pursuing further surgery with the goal of a closed wound. Patient is a smoker. Encouraged patient to stop smoking as it may have deleterious effects on wound healing. It will affect the healing of the flap and may lead to incisional breakdown and recurrence of the pressure sore. He states he will try to stop smoking. Since this is an elective procedure, we are in no hurry to proceed. So will check a nicotine level prior to any surgery that is scheduled. Also would like to maximize his nutrition which would maximize the healing process. His last Prealbumin from 04/29/22 was 13.4. Ideally would like to see it above 20. At the time of the excision of the pressure sore, will check soft tissue and bone cultures. A positive culture will necessitate antibiotic therapy. This way we will know which antibiotics to use perioperatively. If the culture shows MRSA or Pseudomonas or MDR organisms, I would treat for 6 weeks before proceeding with wound closure. Postoperatively he will be on bedrest and would most likely benefit from a stay at an [facility] during this time. Patient was informed of the risks and complications of the procedure including alternatives to surgery. These were discussed with the patient personally. Patient voices understanding and wishes to proceed. Potential risks and complications included but not inclusive of bleeding, infection, seroma, hematoma, bruising, swelling, prolonged need for drains, loss of sensation to skin, partial or complete loss of skin flap and/or skin graft, wound breakdown, need for wound care, poor scarring, poor aesthetic outcome, intra operative cardiac or neurologic events, DVT, PE, and reaction to anesthesia.
--- NOTE | 2023-04-13 09:40 | WC ---
Notified Dasia, patient's regarding patient's positive wound culture and that Kemi Rubio CNP sent in electronically to [facility] pharmacy an ATB for treatment. Dasia verbalized understanding and will shrimp picker ATB when filled.
[2023-04-21 13:42] VITALS: BP 163/92; PULSE 87; RESP 18; TEMP 36.4; BMI 35.5
--- NOTE | 2023-04-21 16:48 | PN.PCM_ITS ---
History of Present Illness Date of Service: 04/21/23 Chief Complaint: Right ischial pressure sore, Stage IV. History of Wound: This is a 67-year-old white male who presented to the wound healing center with complaints of pressure ulcer to right buttock area with extension to the right ischial bone. This started in October,. Patient's was treating with OTC creams and keeping area clean. The ulcer starting increasing in size and went to the Emergency Department on 02/08/22. CT showed subcutaneous and deep soft tissue involvement and possible early abscess formation. The bone was not addressed. He had a wound culture on 02/28/22. It was positive for E. coli, Staphylococcus aureus, and Clostridium perfringens. He was treated with Augmentin. The patient has very limited mobility as a result of a prior spine injury/surgery. He utilizes a wheelchair at all times. He has not been using his billy lift at home to transfer but has been using a board to slide himself from his bed to chair at home. He sits in his wheelchair almost all day, not really able to change positions. They finally obtained a low air loss overlay to their regular mattress at home. A roho cushion was ordered for his wheelchair. Patient is a smoker. Surgery 04/28/22 - Excision right ischial pressure sore, Stage IV, with partial ostectomy for osteomyelitis. Size of wound 8 x 7 x 4.5 cm. Operative tissue cultures positive for MSSA and Cutibacterium acnes. Bone cultures positive for MSSA and Corynebacterium striatum. He is being treated with Augmentin. Pathology from surgery 04/28/22 showed chronic reparative and reactive change. No evidence of acute osteomyelitis. He had a diverting colostomy placed on 11/21/[address] Romero. Wound culture from 07/14/22 positive for Staphylococcus aureus and he was treated with Augmentin. Wound culture obtained 11/10/22 which was positive for Staphylococcus aureus and he was treated with Augmentin. Wound culture obtained 04/06/23 which was positive for Staphylococcus aureus, Corynebacterium striatum, and Enterococcus faecalis. He is being treated with Augmentin. Prealbumin 13.4 on 04/29/22. Encourage nutritional supplementation with protein to help the healing process. He was seen in the ED on 05/02/22 because of a couple falls he experienced since his surgery. CT of his pelvis showed some bony disruption at the level of the inferior pubic ramus suggests a mild osteomyelitis. Today he denies fever. His appetite is ok. Progress of Wound: Stable. Bone still palpable but covered with granulation tissue. It is still painful when palpated. Wound bed is nice pink color. Objective Data Objective Data Vital Signs: Vital Signs Temp Pulse Resp BP O2 Del Method 97.6 F L 87 18 163/92 H Room Air 04/21/23 13:42 04/21/23 13:42 04/21/23 13:42 04/21/23 13:42 04/21/23 13:42 Oxygen Delivery Method Room Air Weight: 220 lb Body Mass Index (BMI) 35.5 Lab / Micro Data Micro: Microbiology 04/06/23 10:10 Wound - Ischium Gram Stain - Final 04/06/23 10:10 Wound - Ischium Wound Culture - Final Staphylococcus aureus Corynebacterium striatum Enterococcus faecalis 04/06/23 10:10 Wound - Ischium Anaerobic Culture - Final No anaerobic bacteria isolated. Charges/Coding Procedures Integumentary [id number]: 50345 Lillian musc/fascia 20 sq cm/< (ICD-10 - L89.314, M86.9, F17.200, Z99.3) Add On Codes: 29687 Lillian musc/fascia add-on (ICD-10 - L89.314, M86.9, F17.200, Z99.3) Debridement Note Debridement Note Wound debrided: #5 Right ischial area. Laterality: Right Wound Grade/Stage: IV. Type of Debridement: Excisional debridement Anesthesia Used: 5% Lidocaine Gel Depth: Down to and including healthy tissue, in the subcutaneous layer, to muscle and to bone (bone is palpable but not exposed.) Percentage of wound debrided: 100 Instrument Used: 7mm curette Tissue Removed: subcutaneous tissue and muscle. Severity: Fat Layer Exposed (muscle is exposed. bone is palpable but not exposed. Bone was not debrided today.) Amount of bleeding with debridement: Mild Bleeding Controlled with: Pressure and Compression and gauze Patient tolerated procedure: Patient tolerated procedure well Debridement Free Text: Bone palpated but not debrided. He has a tunnel at 12 o'clock that is approximately 7 cm long. The base of the ulcer is nice beefy pink color. Post-Debridement Measurements and Additional Note: Post-Debridement Measurements/Treatment WC - Nurse 1 - General Ulcer Assessment Start: 04/06/23 09:18 Freq: Status: Active Protocol: KIRA Activity Type Activity Date Activity User E-sign Co-sign Detail Recorded Client Recorded Date Recorded By Document 04/06/23 09:18 DL Desktop 04/06/23 09:30 DL Document 04/21/23 13:42 KW [id number] 04/21/23 13:45 KW 04/06/23 04/21/23 09:18 13:42 WC - Today's Visit Information Type of service Follow-up Visit Follow-up Visit (Physician/INSPECTOR PLUG SEAM (Physician/INSPECTOR PLUG SEAM ) ) Arrival Mode Wheelchair Wheelchair Transfer Assistance Billy Lift Patient Identification Verified (Name & Yes Yes ) Patient Requires Transmission-Based No Precautions Height and Weight Body Mass Index (BMI) 35.5 35.5 BMI Classification Obese Obese Vital Signs Temperature (97.8 F-99.1 F) 96.8 F L 97.6 F L Temperature Source Temporal Temporal Pulse Rate (60-100) 84 87 Pulse Location Monitor Monitor Respiratory Rate (12-18) 20 H 18 Respiratory rate source Observation Observation Oxygen Delivery Method Room Air Blood Pressure (90/60-120/80) 118/77 163/92 H Blood Pressure Mean (mm Hg) 90 115 Source Monitor Monitor Position Sitting Blood Pressure Location Left Forearm History Since Last Visit- (Skip if this is Patient's initial visit) Have you changed medications since your No No last visit? Any new allergies or adverse reactions No No Had a fall/change in ADL's that may No No increase risk of falls Signs or symptoms of abuse and/or No No neglect since last visit Have you been in the hospital since your No No last visit? Has dressing in place as prescribed Yes Yes Has compression in place as prescribed N/A N/A Has offloadiing in place as prescribed Yes N/A Experienced any changes in pain level or No No management Left Footwear Regular Shoe Right Footwear Regular Shoe Pain Scale: 0-10 Numeric Is Patient Pain Free? Yes Yes DILCIA - Nurse 1 - General Ulcer Measurement Start: 04/06/23 09:18 Freq: Status: Active Protocol: Activity Type Activity Date Activity User E-sign Co-sign Detail Recorded Client Recorded Date Recorded By Document 04/06/23 09:18 DL Desktop 04/06/23 09:30 DL Document 04/21/23 13:42 KW [id number] 04/21/23 13:45 KW 04/06/23 04/21/23 09:18 13:42 Wound Center Nurse 1 #5- R ischium -Combined with other wound No -Current Size (cm) - Length 5 4 -Current Size (cm) - Width 4.8 3.5 -Current Size (cm) - Depth 2.6 4.2 -Total Square Cm 24.0 14.0 -Date of Last Picture (Recall this 04/06/23 04/21/23 field) -Photo Taken Yes Yes -Epithelialization None Present -Tunneling Yes -Tunneling Position (O'clock) 1 -Tunneling Distance (cm) 7.8 -Undermining/Tunneling No -Circular Undermining No -Exudate Amt Large Medium -Exudate Type Serosanguineous Serosanguineous -Wound Margin Distinct, Thickened Outline Attached -Granulation Amt Large (67-100%) Large (67-100%) -Granulation Quality Red Red -Slough/Fibrin No -Necrosis Amt None Present (0 %) -Texture (Michelle-wound Skin Appearance) Assessed, Assessed Scarring -Moisture (Michelle-wound Skin Appearance) Assessed Assessed, Maceration -Color (Michelle-wound Skin Appearance) Assessed Assessed -Temperature (Michelle-wound Skin No Abnormality No Abnormality Appearance) (Pt Warm) (Pt Warm) -Tenderness on Palpation (Michelle-wound No Skin Appearance) -Ulcer Cleansing Soap and Water Soap and Water -Foul Odor after Cleansing No No -Anesthetic Used 4% Lidocaine 4% Lidocaine Solution Solution WC - Nurse 2 - General Ulcer CM Notes Start: 04/06/23 09:18 Freq: Status: Active Protocol: Activity Type Activity Date Activity User E-sign Co-sign Detail Recorded Client Recorded Date Recorded By Document 04/06/23 10:08 Laptop 04/06/23 10:13 Document 04/21/23 13:48 Laptop 04/21/23 13:52 04/06/23 04/21/23 10:08 13:48 Wound Center Nurse 2 #5- R ischium -Time 10:08 13:49 -Correct Patient Yes Yes -Correct Side, Site, Position Yes Yes -Correct Procedure Yes Yes -Procedure Performed Yes Yes -Type of Procedure Debridement Debridement -Clinical Debridement Muscle / Fascia Muscle / Fascia -Tissue Removed Muscle,Fascia Muscle,Fascia -Post Debridement (cm) - Length 5.0 4.5 -Post Debridement (cm) - Width 5.5 4.5 -Post Debridement (cm) - Depth 2.0 1.4 -Total Square (Post) (cm) 27.50 20.25 -Area of Debridement (cm) - Length 5.0 4.5 -Area of Debridement (cm) - Width 5.5 4.5 -Total Square (Area) (cm) 27.50 20.25 -Tunneling Yes Yes -Tunneling Position (O'clock) 12 12 -Tunneling Distance (cm) 5.8 7.2 -Undermining/Tunneling No No -Circular Undermining No No -Wound/Ulcer Outcome Not Healed Not Healed -Ulcer Cleansing Rinsed/ Rinsed/ Irrigated with Irrigated with Saline Saline -Foul Odor after Cleansing No No -Bioengineered Tissue No No -Bleeding Controlled with Pressure Pressure -Treatment Response Procedure Procedure Tolerated Well Tolerated Well -Offloading No No -Pressure Reduction Wheelchair cushion -Debridement - Muscle / Fascia, 1st Yes Yes 20sq cm -Debridement, Muscle/Fascia, ea addt'l 1 1 20sq cm or part thereof Pain Scale: 0-10 Numeric Is Patient Pain Free? Yes Yes - Nurse 3 - General Ulcer D/C NN Start: 04/06/23 09:18 Freq: Status: Active Protocol: Activity Type Activity Date Activity User E-sign Co-sign Detail Recorded Client Recorded Date Recorded By Document 04/06/23 10:17 Desktop 04/06/23 10:18 DL Document 04/21/23 13:53 Laptop 04/21/23 13:53 04/06/23 04/21/23 10:17 13:53 Wound Care Center Nurse 3 #5- R ischium -Ulcer Cleansing Rinsed/ Rinsed/ Irrigated with Irrigated with Saline Saline -Foul Odor after Cleansing No No -Other Dressing dakins Dakin's -Primary Dressing Covered/Secured with Dry Gauze & Dry Gauze, Roll Gauze, Secured with Secured with Tape Tape -Other Covering ABD Treatment Response Procedure Tolerated Well Pain Scale: 0-10 Numeric Is Patient Pain Free? Yes Yes - Visit Discharge Discharge Condition Stable Stable Ambulatory Status Wheelchair Wheelchair Transportation Private Auto Medication Reconcilliation completed & Yes provided to patient/care provider Clinical Summary of Care Provided Yes Facility Type Home Health Orders Sent Yes Assessment/Plan Assessment/Plan (1) Right ischial pressure sore, stage 4: CODE(S): L89.314 - Pressure ulcer of right buttock, stage 4 (2) Osteomyelitis of right side of pelvis: CODE(S): M86.9 - Osteomyelitis, unspecified (3) Smoker: CODE(S): F17.200 - Nicotine dependence, unspecified, uncomplicated (4) Wheelchair dependent: CODE(S): Z99.3 - Dependence on wheelchair PLAN: Plan Wound care - Dakins 0.25% moistened gauze covered by ABD/super absorber daily and as needed. They have home health to help assist with his dressing changes. Operative tissue cultures positive for MSSA and Cutibacterium acnes. Bone cultures positive for MSSA and Corynebacterium striatum. He completed Augmentin. He was seen in the ED on 05/02/22 because of a couple falls he experienced since his surgery. CT of his pelvis showed some bony disruption at the level of the inferior pubic ramus suggests a mild osteomyelitis. Prealbumin 13.4 on 04/29/22. Anticipate increased metabolic demands from the infection. Encourage nutritional supplementation with protein to help the healing process. A wound culture was obtained on 07/14/22, which was positive for Staphylococcus aureus and was treated with Augmentin. Wound culture obtained 11/10/22 which was positive for MSSA and he completed the Augmentin. Wound culture obtained 04/06/23 which was positive for Staphylococcus aureus, Corynebacterium striatum, and Enterococcus faecalis. He is being treated with Augmentin. Patient had a diverting colostomy on 11/21/22. The diversion of the stool has made a noticeable difference in the healing of the ulcer. Encouraged increased protein intake to help with wound healing. Encouraged patient to stop smoking as it may have deleterious effects on wound healing. Stressed importance of not smoking how how it impacts wound healing and potential future surgeries, including flaps, he should really stop smoking. Follow up 2 weeks. From previous note from Dr. Messina: The ulcer is ready for further operative debridement in preparation for closure with a fasciocutaneous flap or a muscle flap since he is wheelchair dependent. The patient has expressed interest in pursuing further surgery with the goal of a closed wound. Patient is a smoker. Encouraged patient to stop smoking as it may have deleterious effects on wound healing. It will affect the healing of the flap and may lead to incisional breakdown and recurrence of the pressure sore. He states he will try to stop smoking. Since this is an elective procedure, we are in no hurry to proceed. So will check a nicotine level prior to any surgery that is scheduled. Also would like to maximize his nutrition which would maximize the healing process. His last Prealbumin from 04/29/22 was 13.4. Ideally would like to see it above 20. At the time of the excision of the pressure sore, will check soft tissue and bone cultures. A positive culture will necessitate antibiotic therapy. This way we will know which antibiotics to use perioperatively. If the culture shows MRSA or Pseudomonas or MDR organisms, I would treat for 6 weeks before proceeding with wound closure. Postoperatively he will be on bedrest and would most likely benefit from a stay at an [facility] during this time. Patient was informed of the risks and complications of the procedure including alternatives to surgery. These were discussed with the patient personally. Patient voices understanding and wishes to proceed. Potential risks and complications included but not inclusive of bleeding, infection, seroma, hematoma, bruising, swelling, prolonged need for drains, loss of sensation to skin, partial or complete loss of skin flap and/or skin graft, wound breakdown, need for wound care, poor scarring, poor aesthetic outcome, intra operative cardiac or neurologic events, DVT, PE, and reaction to anesthesia.
== END 2023-04-29 23:59 | disposition home or self-care (01) ==
LOC: WC 13:30
PROVIDERS: PCP Family Medicine; Referring Provider Physician Assistant; Visit Provider Nurse Practitioner Family
DX: L89.214 Pressure ulcer of right hip, stage 4 (principal); M86.8X8 Other osteomyelitis, other site; F17.200 Nicotine dependence, unspecified, uncomplicated; Z99.3 Dependence on wheelchair
CPT/HCPCS: 11043; 11046; 87070; 87075; 87077; 87186; 87205

== ENCOUNTER 2023-05-18 09:15 | Outpatient (RCR) | payer BC, MEDICARE, SELFPAY ==
[2023-04-30 00:55] VITALS: BP 163/92; PULSE 87; RESP 18; TEMP 36.4; BMI 35.5
[2023-05-04 09:03] VITALS: BP 184/92; PULSE 79; RESP 16; TEMP 35.9; BMI 35.5
--- NOTE | 2023-05-04 12:19 | PCM.WC.PN ---
History of Present Illness Date of Service: 05/04/23 Chief Complaint: Right ischial pressure sore, Stage IV. History of Wound: This is a 67-year-old white male who presented to the wound healing center with complaints of pressure ulcer to right buttock area with extension to the right ischial bone. This started in October,. Patient's was treating with OTC creams and keeping area clean. The ulcer starting increasing in size and went to the Emergency Department on 02/08/22. CT showed subcutaneous and deep soft tissue involvement and possible early abscess formation. The bone was not addressed. He had a wound culture on 02/28/22. It was positive for E. coli, Staphylococcus aureus, and Clostridium perfringens. He was treated with Augmentin. The patient has very limited mobility as a result of a prior spine injury/surgery. He utilizes a wheelchair at all times. He has not been using his billy lift at home to transfer but has been using a board to slide himself from his bed to chair at home. He sits in his wheelchair almost all day, not really able to change positions. They finally obtained a low air loss overlay to their regular mattress at home. A roho cushion was ordered for his wheelchair. Patient is a smoker. Surgery 04/28/22 - Excision right ischial pressure sore, Stage IV, with partial ostectomy for osteomyelitis. Size of wound 8 x 7 x 4.5 cm. Operative tissue cultures positive for MSSA and Cutibacterium acnes. Bone cultures positive for MSSA and Corynebacterium striatum. He is being treated with Augmentin. Pathology from surgery 04/28/22 showed chronic reparative and reactive change. No evidence of acute osteomyelitis. He had a diverting colostomy placed on 11/21/[address] Romero. Wound culture from 07/14/22 positive for Staphylococcus aureus and he was treated with Augmentin. Wound culture obtained 11/10/22 which was positive for Staphylococcus aureus and he was treated with Augmentin. Wound culture obtained 04/06/23 which was positive for Staphylococcus aureus, Corynebacterium striatum, and Enterococcus faecalis. He is being treated with Augmentin. Prealbumin 13.4 on 04/29/22. Encourage nutritional supplementation with protein to help the healing process. He was seen in the ED on 05/02/22 because of a couple falls he experienced since his surgery. CT of his pelvis showed some bony disruption at the level of the inferior pubic ramus suggests a mild osteomyelitis. Today he denies fever. His appetite is ok. Progress of Wound: Stable. Bone still palpable but covered with granulation tissue. It is still painful when palpated. Wound bed is nice pink color. He has some maceration on the distal edges of the ulcer. Concern that he may be having increased drainage, or the dressing is too wet when being packed into the ulcer. Objective Data Objective Data Vital Signs: Vital Signs Temp Pulse Resp BP O2 Del Method 96.6 F L 79 16 184/92 H Room Air 05/04/23 09:03 05/04/23 09:03 05/04/23 09:03 05/04/23 09:03 05/04/23 09:03 Oxygen Delivery Method Room Air Weight: 220 lb Body Mass Index (BMI) 35.5 Charges/Coding Procedures Integumentary 111xxx-113xx: 00117 Lillian musc/fascia 20 sq cm/< (ICD-10 - L89.314, M86.9, F17.200, Z99.3) Add On Codes: 20292 Lillian musc/fascia add-on (ICD-10 - L89.314, M86.9, F17.200, Z99.3) Debridement Note Debridement Note Wound debrided: #5 Right ischial area. Laterality: Right Wound Grade/Stage: IV. Type of Debridement: Excisional debridement Anesthesia Used: 5% Lidocaine Gel Depth: Down to and including healthy tissue, in the subcutaneous layer, to muscle and to bone (bone is palpable but not exposed.) Percentage of wound debrided: 100 Instrument Used: 7mm curette Tissue Removed: subcutaneous tissue and muscle. Severity: Fat Layer Exposed (muscle is exposed. bone is palpable but not exposed. Bone was not debrided today.) Amount of bleeding with debridement: Mild Bleeding Controlled with: Pressure and Compression and gauze Patient tolerated procedure: Patient tolerated procedure well Debridement Free Text: Bone palpated but not debrided. He has a tunnel at 12 o'clock that is slightly smaller than last week. The base of the ulcer is nice beefy pink color. 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 ) Arrival Mode Wheelchair Transfer Assistance Billy Lift Transfer Assist (Other) 2 Patient Identification Verified (Name & Yes ) Patient Requires Transmission-Based No Precautions Height and Weight Body Mass Index (BMI) 35.5 BMI Classification Obese Vital Signs Temperature (97.8 F-99.1 F) 96.6 F L Temperature Source Temporal Pulse Rate (60-100) 79 Pulse Location Monitor Respiratory Rate (12-18) 16 Respiratory rate source Observation Oxygen Delivery Method Room Air Blood Pressure (90/60-120/80) 184/92 H Blood Pressure Mean (mm Hg) 122 Source Monitor Position Sitting Blood Pressure Location Right Forearm History Since Last Visit- (Skip if this is Patient's initial visit) Have you changed medications since your No last visit? Any new allergies or adverse reactions No Had a fall/change in ADL's that may No increase risk of falls Signs or symptoms of abuse and/or No neglect since last visit Have you been in the hospital since your No last visit? Has dressing in place as prescribed Yes Has compression in place as prescribed N/A Has offloadiing in place as prescribed N/A Experienced any changes in pain level or No management Left Footwear Regular Shoe Right Footwear Regular Shoe Pain Scale: 0-10 Numeric Is Patient Pain Free? Yes - Nurse 1 - General Ulcer Measurement Start: 05/04/23 09:03 Freq: Status: Active Protocol: Activity Type Activity Date Activity User E-sign Co-sign Detail Recorded Client Recorded Date Recorded By Document 05/04/23 09:03 [facility] [employer] 05/04/23 09:06 [facility] 05/04/23 09:03 Wound Center Nurse 1 #5- R ischium -Combined with other wound No -Current Size (cm) - Length 4.6 -Current Size (cm) - Width 4 -Current Size (cm) - Depth 3.5 -Total Square Cm 18.4 -Date of Last Picture (Recall this 05/04/23 field) -Photo Taken Yes -Epithelialization None Present -Tunneling Yes -Tunneling Position (O'clock) 12 -Tunneling Distance (cm) 6 -Undermining/Tunneling Yes -Undermining/Tunneling Starts (O'clock 12 ) -Undermining/Tunneling Ends (O'clock) 3 -Maximum Distance (cm) 6 -Circular Undermining No -Exudate Amt Large -Exudate Type Serosanguineous -Wound Margin Distinct, Outline Attached -Granulation Amt Large (67-100%) -Granulation Quality Red -Slough/Fibrin No -Necrosis Amt None Present (0 %) -Texture (Michelle-wound Skin Appearance) Assessed, Scarring -Moisture (Michelle-wound Skin Appearance) Assessed, Maceration -Color (Michelle-wound Skin Appearance) Assessed -Temperature (Michelle-wound Skin No Abnormality Appearance) (Pt Warm) -Tenderness on Palpation (Michelle-wound No Skin Appearance) -Ulcer Cleansing Soap and Water -Foul Odor after Cleansing No -Anesthetic Used 4% Lidocaine Solution WC - Nurse 2 - General Ulcer CM Notes Start: 05/04/23 09:03 Freq: Status: Active Protocol: Activity Type Activity Date Activity User E-sign Co-sign Detail Recorded Client Recorded Date Recorded By Document 05/04/23 09:13 [employer] 05/04/23 09:19 05/04/23 09:13 Wound Center Nurse 2 -Time 09:14 -Correct Patient Yes -Correct Side, Site, Position Yes -Correct Procedure Yes -Procedure Performed Yes -Type of Procedure Debridement -Clinical Debridement Muscle / Fascia -Tissue Removed Muscle,Fascia -Post Debridement (cm) - Length 4.7 -Post Debridement (cm) - Width 4.4 -Post Debridement (cm) - Depth 2.2 -Total Square (Post) (cm) 20.68 -Area of Debridement (cm) - Length 4.7 -Area of Debridement (cm) - Width 4.4 -Total Square (Area) (cm) 20.68 -Tunneling Yes -Tunneling Position (O'clock) 12 -Tunneling Distance (cm) 6.8 -Undermining/Tunneling No -Circular Undermining No -Wound/Ulcer Outcome Not Healed -Ulcer Cleansing Rinsed/ Irrigated with Saline -Foul Odor after Cleansing No -Bioengineered Tissue No -Bleeding Controlled with Pressure -Treatment Response Procedure Tolerated Well -Offloading No -Pressure Reduction Wheelchair cushion -Debridement - Muscle / Fascia, 1st Yes 20sq cm -Debridement, Muscle/Fascia, ea addt'l 1 20sq cm or part thereof Pain Scale: 0-10 Numeric Is Patient Pain Free? Yes Assessment/Plan Assessment/Plan (1) Right ischial pressure sore, stage 4: CODE(S): L89.314 - Pressure ulcer of right buttock, stage 4 (2) Osteomyelitis of right side of pelvis: CODE(S): M86.9 - Osteomyelitis, unspecified (3) Smoker: CODE(S): F17.200 - Nicotine dependence, unspecified, uncomplicated (4) Wheelchair dependent: CODE(S): Z99.3 - Dependence on wheelchair PLAN: Plan Wound care - Dakins 0.25% lightly moistened gauze covered by ABD/super absorber daily and as needed. May do the dressing changes twice daily if having increased drainage. Stressed not getting the dressings too wet because that may be the cause of the maceration on the distal edge of the ulcer. They have home health to help assist with his dressing changes. Operative tissue cultures positive for MSSA and Cutibacterium acnes. Bone cultures positive for MSSA and Corynebacterium striatum. He completed Augmentin. He was seen in the ED on 05/02/22 because of a couple falls he experienced since his surgery. CT of his pelvis showed some bony disruption at the level of the inferior pubic ramus suggests a mild osteomyelitis. Prealbumin 13.4 on 04/29/22. Anticipate increased metabolic demands from the infection. Encourage nutritional supplementation with protein to help the healing process. A wound culture was obtained on 07/14/22, which was positive for Staphylococcus aureus and was treated with Augmentin. Wound culture obtained 11/10/22 which was positive for MSSA and he completed the Augmentin. Wound culture obtained 04/06/23 which was positive for Staphylococcus aureus, Corynebacterium striatum, and Enterococcus faecalis. He is being treated with Augmentin. Patient had a diverting colostomy on 11/21/22. The diversion of the stool has made a noticeable difference in the healing of the ulcer. Encouraged increased protein intake to help with wound healing. Encouraged patient to stop smoking as it may have deleterious effects on wound healing. Stressed importance of not smoking how how it impacts wound healing and potential future surgeries, including flaps, he should really stop smoking. Follow up 2 weeks. From previous note from Dr. Messina: The ulcer is ready for further operative debridement in preparation for closure with a fasciocutaneous flap or a muscle flap since he is wheelchair dependent. The patient has expressed interest in pursuing further surgery with the goal of a closed wound. Patient is a smoker. Encouraged patient to stop smoking as it may have deleterious effects on wound healing. It will affect the healing of the flap and may lead to incisional breakdown and recurrence of the pressure sore. He states he will try to stop smoking. Since this is an elective procedure, we are in no hurry to proceed. So will check a nicotine level prior to any surgery that is scheduled. Also would like to maximize his nutrition which would maximize the healing process. His last Prealbumin from 04/29/22 was 13.4. Ideally would like to see it above 20. At the time of the excision of the pressure sore, will check soft tissue and bone cultures. A positive culture will necessitate antibiotic therapy. This way we will know which antibiotics to use perioperatively. If the culture shows MRSA or Pseudomonas or MDR organisms, I would treat for 6 weeks before proceeding with wound closure. Postoperatively he will be on bedrest and would most likely benefit from a stay at an [facility] during this time. Patient was informed of the risks and complications of the procedure including alternatives to surgery. These were discussed with the patient personally. Patient voices understanding and wishes to proceed. Potential risks and complications included but not inclusive of bleeding, infection, seroma, hematoma, bruising, swelling, prolonged need for drains, loss of sensation to skin, partial or complete loss of skin flap and/or skin graft, wound breakdown, need for wound care, poor scarring, poor aesthetic outcome, intra operative cardiac or neurologic events, DVT, PE, and reaction to anesthesia.
[2023-05-18 09:04] VITALS: BP 147/96; PULSE 91; RESP 16; TEMP 35.7; BMI 35.5
--- NOTE | 2023-05-18 11:15 | PCM.WC.PN ---
History of Present Illness Date of Service: 05/18/23 Chief Complaint: Right ischial pressure sore, Stage IV. History of Wound: This is a 67-year-old white male who presented to the wound healing center with complaints of pressure ulcer to right buttock area with extension to the right ischial bone. This started in October,. Patient's was treating with OTC creams and keeping area clean. The ulcer starting increasing in size and went to the Emergency Department on 02/08/22. CT showed subcutaneous and deep soft tissue involvement and possible early abscess formation. The bone was not addressed. He had a wound culture on 02/28/22. It was positive for E. coli, Staphylococcus aureus, and Clostridium perfringens. He was treated with Augmentin. The patient has very limited mobility as a result of a prior spine injury/surgery. He utilizes a wheelchair at all times. He has not been using his billy lift at home to transfer but has been using a board to slide himself from his bed to chair at home. He sits in his wheelchair almost all day, not really able to change positions. They finally obtained a low air loss overlay to their regular mattress at home. A roho cushion was ordered for his wheelchair. Patient is a smoker. Surgery 04/28/22 - Excision right ischial pressure sore, Stage IV, with partial ostectomy for osteomyelitis. Size of wound 8 x 7 x 4.5 cm. Operative tissue cultures positive for MSSA and Cutibacterium acnes. Bone cultures positive for MSSA and Corynebacterium striatum. He is being treated with Augmentin. Pathology from surgery 04/28/22 showed chronic reparative and reactive change. No evidence of acute osteomyelitis. He had a diverting colostomy placed on 11/21/[address] Romero. Wound culture from 07/14/22 positive for Staphylococcus aureus and he was treated with Augmentin. Wound culture obtained 11/10/22 which was positive for Staphylococcus aureus and he was treated with Augmentin. Wound culture obtained 04/06/23 which was positive for Staphylococcus aureus, Corynebacterium striatum, and Enterococcus faecalis. He is being treated with Augmentin. Prealbumin 13.4 on 04/29/22. Encourage nutritional supplementation with protein to help the healing process. He was seen in the ED on 05/02/22 because of a couple falls he experienced since his surgery. CT of his pelvis showed some bony disruption at the level of the inferior pubic ramus suggests a mild osteomyelitis. Today he denies fever. His appetite is ok. Progress of Wound: Stable. Bone still palpable but covered with granulation tissue. It is still painful when palpated. Wound bed is nice pink color. He continues to have maceration on the distal edges of the ulcer. He states they are changing the dressing twice a day. Objective Data Objective Data Vital Signs: Vital Signs Temp Pulse Resp BP O2 Del Method 96.2 F L 91 16 147/96 H Room Air 05/18/23 09:04 05/18/23 09:04 05/18/23 09:04 05/18/23 09:04 05/18/23 09:04 Oxygen Delivery Method Room Air Weight: 220 lb Body Mass Index (BMI) 35.5 Charges/Coding Procedures Integumentary 111xxx-113xx: 03470 Lillian musc/fascia 20 sq cm/< (ICD-10 - L89.314, M86.9, F17.200, Z99.3) Add On Codes: 56666 Lillian musc/fascia add-on (ICD-10 - L89.314, M86.9, F17.200, Z99.3) Debridement Note Debridement Note Wound debrided: #5 Right ischial area. Laterality: Right Wound Grade/Stage: IV. Type of Debridement: Excisional debridement Anesthesia Used: 5% Lidocaine Gel Depth: Down to and including healthy tissue, in the subcutaneous layer, to muscle and to bone (bone is palpable but not exposed.) Percentage of wound debrided: 100 Instrument Used: 7mm curette Tissue Removed: subcutaneous tissue and muscle. Severity: Fat Layer Exposed (muscle is exposed. bone is palpable but not exposed. Bone was not debrided today.) Amount of bleeding with debridement: Mild Bleeding Controlled with: Pressure and Compression and gauze Patient tolerated procedure: Patient tolerated procedure well Debridement Free Text: Bone palpated but not debrided. He has a tunnel at 12 o'clock that is stable. The base of the ulcer is nice beefy pink color. Post-Debridement Measurements and Additional Note: Post-Debridement Measurements/Treatment WC - Nurse 1 - General Ulcer Assessment Start: 05/04/23 09:03 Freq: Status: Active Protocol: WC.LOWEXT Activity Type Activity Date Activity User E-sign Co-sign Detail Recorded Client Recorded Date Recorded By Document 05/04/23 09:03 [facility] Desktop 05/04/23 09:06 [facility] Document 05/18/23 09:04 [facility] Desktop 05/18/23 09:16 BMF 05/04/23 05/18/23 09:03 09:04 WC - Today's Visit Information Type of service Follow-up Visit Follow-up Visit (Physician/LADLE FILLER (Physician/LADLE FILLER ) ) Arrival Mode Wheelchair Wheelchair Transfer Assistance Billy Lift Transfer Assist (Other) 2 Patient Identification Verified (Name & Yes Yes ) Patient Requires Transmission-Based No No Precautions Height and Weight Body Mass Index (BMI) 35.5 35.5 BMI Classification Obese Obese Vital Signs Temperature (97.8 F-99.1 F) 96.6 F L 96.2 F L Temperature Source Temporal Temporal Pulse Rate (60-100) 79 91 Pulse Location Monitor Monitor Respiratory Rate (12-18) 16 16 Respiratory rate source Observation Observation Oxygen Delivery Method Room Air Room Air Blood Pressure (90/60-120/80) 184/92 H 147/96 H Blood Pressure Mean (mm Hg) 122 113 Source Monitor Monitor Position Sitting Sitting Blood Pressure Location Right Forearm Right Forearm History Since Last Visit- (Skip if this is Patient's initial visit) Have you changed medications since your No No last visit? Any new allergies or adverse reactions No No Had a fall/change in ADL's that may No No increase risk of falls Signs or symptoms of abuse and/or No No neglect since last visit Have you been in the hospital since your No No last visit? Has dressing in place as prescribed Yes Yes Has compression in place as prescribed N/A N/A Has offloadiing in place as prescribed N/A N/A Experienced any changes in pain level or No No management Left Footwear Regular Shoe Regular Shoe Right Footwear Regular Shoe Regular Shoe Pain Scale: 0-10 Numeric Is Patient Pain Free? Yes Yes - Nurse 1 - General Ulcer Measurement Start: 05/04/23 09:03 Freq: Status: Active Protocol: Activity Type Activity Date Activity User E-sign Co-sign Detail Recorded Client Recorded Date Recorded By Document 05/04/23 09:03 [facility] [employer] 05/04/23 09:06 [facility] Document 05/18/23 09:04 [facility] Desktop 05/18/23 09:16 [facility] 05/04/23 05/18/23 09:03 09:04 Wound Center Nurse 1 #5- R ischium -Combined with other wound No No -Current Size (cm) - Length 4.6 5.8 -Current Size (cm) - Width 4 5.2 -Current Size (cm) - Depth 3.5 3 -Total Square Cm 18.4 30.16 -Date of Last Picture (Recall this 05/04/23 field) -Photo Taken Yes -Epithelialization None Present -Tunneling Yes -Tunneling Position (O'clock) 12 -Tunneling Distance (cm) 6 -Undermining/Tunneling Yes Yes -Undermining/Tunneling Starts (O'clock 12 12 ) -Undermining/Tunneling Ends (O'clock) 3 3 -Maximum Distance (cm) 6 7.2 -Circular Undermining No No -Exudate Amt Large Large -Exudate Type Serosanguineous Serosanguineous -Wound Margin Distinct, Thickened Outline Attached -Granulation Amt Large (67-100%) Large (67-100%) -Granulation Quality Red Red -Slough/Fibrin No Yes -Necrosis Amt None Present (0 Small (1-33%) %) -Necrotic Tissue Type Adherent Slough -Texture (Michelle-wound Skin Appearance) Assessed, Assessed, Scarring Scarring -Moisture (Mcihelle-wound Skin Appearance) Assessed, Assessed, Maceration Maceration -Color (Michelle-wound Skin Appearance) Assessed Assessed -Temperature (Michelle-wound Skin No Abnormality No Abnormality Appearance) (Pt Warm) (Pt Warm) -Tenderness on Palpation (Michelle-wound No No Skin Appearance) -Ulcer Cleansing Soap and Water Soap and Water -Foul Odor after Cleansing No No -Anesthetic Used 4% Lidocaine 4% Lidocaine Solution Solution WC - Nurse 2 - General Ulcer CM Notes Start: 05/04/23 09:03 Freq: Status: Active Protocol: Activity Type Activity Date Activity User E-sign Co-sign Detail Recorded Client Recorded Date Recorded By Document 05/04/23 09:13 Laptop 05/04/23 09:19 Document 05/18/23 09:25 Laptop 05/18/23 09:27 JF 05/04/23 05/18/23 09:13 09:25 Wound Center Nurse 2 #5- R ischium -Time 09:14 09:26 -Correct Patient Yes Yes -Correct Side, Site, Position Yes Yes -Correct Procedure Yes Yes -Procedure Performed Yes Yes -Type of Procedure Debridement Debridement -Clinical Debridement Muscle / Fascia Muscle / Fascia -Tissue Removed Muscle,Fascia Muscle,Fascia -Post Debridement (cm) - Length 4.7 5.2 -Post Debridement (cm) - Width 4.4 4.3 -Post Debridement (cm) - Depth 2.2 2.0 -Total Square (Post) (cm) 20.68 22.36 -Area of Debridement (cm) - Length 4.7 5.2 -Area of Debridement (cm) - Width 4.4 4.3 -Total Square (Area) (cm) 20.68 22.36 -Tunneling Yes No -Tunneling Position (O'clock) 12 -Tunneling Distance (cm) 6.8 -Undermining/Tunneling No No -Circular Undermining No No -Wound/Ulcer Outcome Not Healed Not Healed -Ulcer Cleansing Rinsed/ Rinsed/ Irrigated with Irrigated with Saline Saline -Foul Odor after Cleansing No No -Bioengineered Tissue No No -Bleeding Controlled with Pressure Pressure -Treatment Response Procedure Procedure Tolerated Well Tolerated Well -Offloading No No -Pressure Reduction Wheelchair Wheelchair cushion cushion -Debridement - Muscle / Fascia, 1st Yes Yes 20sq cm -Debridement, Muscle/Fascia, ea addt'l 1 1 20sq cm or part thereof Pain Scale: 0-10 Numeric Is Patient Pain Free? Yes Yes - Nurse 3 - General Ulcer D/C NN Start: 05/04/23 09:03 Freq: Status: Active Protocol: Activity Type Activity Date Activity User E-sign Co-sign Detail Recorded Client Recorded Date Recorded By Document 05/18/23 09:35 DL Desktop 05/18/23 09:36 DL 05/18/23 09:35 Wound Care Center Nurse 3 #5- R ischium -Ulcer Cleansing Soap and Water -Foul Odor after Cleansing No -Other Dressing dakins -Primary Dressing Covered/Secured with Dry Gauze, Secured with Tape -Other Covering ABD Treatment Response Procedure Tolerated Well Pain Scale: 0-10 Numeric Is Patient Pain Free? Yes - Visit Discharge Discharge Condition Stable Ambulatory Status Wheelchair Transportation Private Auto Facility Type Home Health Orders Sent Yes Assessment/Plan Assessment/Plan (1) Right ischial pressure sore, stage 4: CODE(S): L89.314 - Pressure ulcer of right buttock, stage 4 (2) Osteomyelitis of right side of pelvis: CODE(S): M86.9 - Osteomyelitis, unspecified (3) Smoker: CODE(S): F17.200 - Nicotine dependence, unspecified, uncomplicated (4) Wheelchair dependent: CODE(S): Z99.3 - Dependence on wheelchair PLAN: Plan Wound care - Dakins 0.25% lightly moistened gauze covered by ABD/super absorber twice daily and as needed. Stressed not getting the dressings too wet because that may be the cause of the maceration on the distal edge of the ulcer. They have home health to help assist with his dressing changes. Operative tissue cultures positive for MSSA and Cutibacterium acnes. Bone cultures positive for MSSA and Corynebacterium striatum. He completed Augmentin. He was seen in the ED on 05/02/22 because of a couple falls he experienced since his surgery. CT of his pelvis showed some bony disruption at the level of the inferior pubic ramus suggests a mild osteomyelitis. Prealbumin 13.4 on 04/29/22. Anticipate increased metabolic demands from the infection. Encourage nutritional supplementation with protein to help the healing process. A wound culture was obtained on 07/14/22, which was positive for Staphylococcus aureus and was treated with Augmentin. Wound culture obtained 11/10/22 which was positive for MSSA and he completed the Augmentin. Wound culture obtained 04/06/23 which was positive for Staphylococcus aureus, Corynebacterium striatum, and Enterococcus faecalis. He is being treated with Augmentin, which he just refilled. Patient had a diverting colostomy on 11/21/22. The diversion of the stool has made a noticeable difference in the healing of the ulcer. Encouraged increased protein intake to help with wound healing. Encouraged patient to stop smoking as it may have deleterious effects on wound healing. Stressed importance of not smoking how how it impacts wound healing and potential future surgeries, including flaps, he really needs to stop smoking. He states he is down to 2 cigarettes a day. Follow up 2 weeks. From previous note from Dr. Messina: The ulcer is ready for further operative debridement in preparation for closure with a fasciocutaneous flap or a muscle flap since he is wheelchair dependent. The patient has expressed interest in pursuing further surgery with the goal of a closed wound. Patient is a smoker. Encouraged patient to stop smoking as it may have deleterious effects on wound healing. It will affect the healing of the flap and may lead to incisional breakdown and recurrence of the pressure sore. He states he will try to stop smoking. Since this is an elective procedure, we are in no hurry to proceed. So will check a nicotine level prior to any surgery that is scheduled. Also would like to maximize his nutrition which would maximize the healing process. His last Prealbumin from 04/29/22 was 13.4. Ideally would like to see it above 20. At the time of the excision of the pressure sore, will check soft tissue and bone cultures. A positive culture will necessitate antibiotic therapy. This way we will know which antibiotics to use perioperatively. If the culture shows MRSA or Pseudomonas or MDR organisms, I would treat for 6 weeks before proceeding with wound closure. Postoperatively he will be on bedrest and would most likely benefit from a stay at an [facility] during this time. Patient was informed of the risks and complications of the procedure including alternatives to surgery. These were discussed with the patient personally. Patient voices understanding and wishes to proceed. Potential risks and complications included but not inclusive of bleeding, infection, seroma, hematoma, bruising, swelling, prolonged need for drains, loss of sensation to skin, partial or complete loss of skin flap and/or skin graft, wound breakdown, need for wound care, poor scarring, poor aesthetic outcome, intra operative cardiac or neurologic events, DVT, PE, and reaction to anesthesia.
== END 2023-05-28 23:59 | disposition home or self-care (01) ==
LOC: WC 09:15
PROVIDERS: PCP Family Medicine; Referring Provider Physician Assistant; Visit Provider Nurse Practitioner Family
DX: L89.214 Pressure ulcer of right hip, stage 4 (principal); M86.8X8 Other osteomyelitis, other site; Z99.3 Dependence on wheelchair; F17.200 Nicotine dependence, unspecified, uncomplicated
CPT/HCPCS: 11043; 11046

== ENCOUNTER 2023-06-15 09:30 | Outpatient (RCR) | payer BC, MEDICARE, SELFPAY ==
[2023-05-29 00:38] VITALS: BP 147/96; PULSE 91; RESP 16; TEMP 35.7; BMI 35.5
[2023-06-01 09:23] VITALS: BP 133/77; PULSE 79; RESP 16; TEMP 35.9; BMI 35.5
--- NOTE | 2023-06-01 10:21 | PCM.WC.PN ---
History of Present Illness Date of Service: 06/01/23 Chief Complaint: Right ischial pressure sore, Stage IV. History of Wound: This is a 67-year-old white male who presented to the wound healing center with complaints of pressure ulcer to right buttock area with extension to the right ischial bone. This started in October,. Patient's was treating with OTC creams and keeping area clean. The ulcer starting increasing in size and went to the Emergency Department on 02/08/22. CT showed subcutaneous and deep soft tissue involvement and possible early abscess formation. The bone was not addressed. He had a wound culture on 02/28/22. It was positive for E. coli, Staphylococcus aureus, and Clostridium perfringens. He was treated with Augmentin. The patient has very limited mobility as a result of a prior spine injury/surgery. He utilizes a wheelchair at all times. He has not been using his iblly lift at home to transfer but has been using a board to slide himself from his bed to chair at home. He sits in his wheelchair almost all day, not really able to change positions. They finally obtained a low air loss overlay to their regular mattress at home. A roho cushion was ordered for his wheelchair. Patient is a smoker. Surgery 04/28/22 - Excision right ischial pressure sore, Stage IV, with partial ostectomy for osteomyelitis. Size of wound 8 x 7 x 4.5 cm. Operative tissue cultures positive for MSSA and Cutibacterium acnes. Bone cultures positive for MSSA and Corynebacterium striatum. He is being treated with Augmentin. Pathology from surgery 04/28/22 showed chronic reparative and reactive change. No evidence of acute osteomyelitis. He had a diverting colostomy placed on 11/21/[address] Romero. Wound culture from 07/14/22 positive for Staphylococcus aureus and he was treated with Augmentin. Wound culture obtained 11/10/22 which was positive for Staphylococcus aureus and he was treated with Augmentin. Wound culture obtained 04/06/23 which was positive for Staphylococcus aureus, Corynebacterium striatum, and Enterococcus faecalis. He is being treated with Augmentin. Prealbumin 13.4 on 04/29/22. Encourage nutritional supplementation with protein to help the healing process. He was seen in the ED on 05/02/22 because of a couple falls he experienced since his surgery. CT of his pelvis showed some bony disruption at the level of the inferior pubic ramus suggests a mild osteomyelitis. Today he denies fever. His appetite is ok. Progress of Wound: Stable. Bone still palpable but covered with granulation tissue. It is still uncomfortable when palpating the bone. Wound bed is nice pink color. He continues to have maceration on the distal edges of the ulcer. He states they are changing the dressing twice a day. He states that he stopped smoking 2 weeks ago! Objective Data Objective Data Vital Signs: Vital Signs Temp Pulse Resp BP 96.7 F L 79 16 133/77 H 06/01/23 09:23 06/01/23 09:23 06/01/23 09:06/01/23 09:23 Weight: 220 lb Body Mass Index (BMI) 35.5 Charges/Coding Procedures Integumentary 111xxx-113xx: 91607 Lillian musc/fascia 20 sq cm/< (ICD-10 - L89.314, M86.9, F17.200, Z99.3) Add On Codes: 94146 Lillian musc/fascia add-on (ICD-10 - L89.314, M86.9, F17.200, Z99.3) Debridement Note Debridement Note Wound debrided: #5 Right ischial area. Laterality: Right Wound Grade/Stage: IV. Type of Debridement: Excisional debridement Anesthesia Used: 5% Lidocaine Gel Depth: Down to and including healthy tissue, in the subcutaneous layer, to muscle and to bone (bone is palpable but not exposed.) Percentage of wound debrided: 100 Instrument Used: 7mm curette Tissue Removed: subcutaneous tissue and muscle. Severity: Fat Layer Exposed (muscle is exposed. bone is palpable but not exposed. Bone was not debrided today.) Amount of bleeding with debridement: Mild Bleeding Controlled with: Pressure and Compression and gauze Patient tolerated procedure: Patient tolerated procedure well Debridement Free Text: Bone palpated but not debrided. He has a tunnel at 12 o'clock that is stable. The base of the ulcer is nice beefy pink color. He continues to have maceration around the edges of the ulcer, even with changing the dressing twice daily. Post-Debridement Measurements and Additional Note: Post-Debridement Measurements/Treatment WC - Nurse 1 - General Ulcer Assessment Start: 06/01/23 09:18 Freq: Status: Active Protocol: DILCIA.NORIS Activity Type Activity Date Activity User E-sign Co-sign Detail Recorded Client Recorded Date Recorded By Document 06/01/23 09:23 [employer] 06/01/23 09:26 06/01/23 09:23 WC - Today's Visit Information Type of service Follow-up Visit (Physician/[employer] SUPERINTENDENT ) Arrival Mode Wheelchair Transfer Assistance Billy Lift Patient Identification Verified (Name & Yes ) Patient Requires Transmission-Based No Precautions Height and Weight Body Mass Index (BMI) 35.5 BMI Classification Obese Vital Signs Temperature (97.8 F-99.1 F) 96.7 F L Temperature Source Temporal Pulse Rate (60-100) 79 Pulse Location Monitor Respiratory Rate (12-18) 16 Respiratory rate source Observation Blood Pressure (90/60-120/80) 133/77 H Blood Pressure Mean (mm Hg) 95 Source Monitor History Since Last Visit- (Skip if this is Patient's initial visit) Have you changed medications since your No last visit? Any new allergies or adverse reactions No Had a fall/change in ADL's that may No increase risk of falls Signs or symptoms of abuse and/or No neglect since last visit Have you been in the hospital since your No last visit? Has dressing in place as prescribed Yes Has compression in place as prescribed N/A Experienced any changes in pain level or No management Pain Scale: 0-10 Numeric Is Patient Pain Free? Yes - Nurse 1 - General Ulcer Measurement Start: 06/01/23 09:18 Freq: Status: Active Protocol: Activity Type Activity Date Activity User E-sign Co-sign Detail Recorded Client Recorded Date Recorded By Document 06/01/23 09:23 [employer] 06/01/23 09:26 06/01/23 09:23 Wound Center Nurse 1 #5- R ischium -Current Size (cm) - Length 4.8 -Current Size (cm) - Width 2.9 -Current Size (cm) - Depth 3.2 -Total Square Cm 13.92 -Photo Taken No -Tunneling Position (O'clock) 12 -Tunneling Distance (cm) 7.5 -Exudate Amt Medium -Exudate Type Serosanguineous -Wound Margin Distinct, Outline Attached -Granulation Amt Large (67-100%) -Granulation Quality Red -Necrosis Amt None Present (0 %) -Structure Exposed N/A -Texture (Michelle-wound Skin Appearance) Scarring -Moisture (Michelle-wound Skin Appearance) Maceration -Color (Michelle-wound Skin Appearance) No Abnormality -Temperature (Michelle-wound Skin No Abnormality Appearance) (Pt Warm) -Tenderness on Palpation (Michelle-wound No Skin Appearance) -Ulcer Cleansing Soap and Water -Foul Odor after Cleansing No -Anesthetic Used 5% Lidocaine Gel DILCIA - Nurse 2 - General Ulcer CM Notes Start: 06/01/23 09:18 Freq: Status: Active Protocol: Activity Type Activity Date Activity User E-sign Co-sign Detail Recorded Client Recorded Date Recorded By Document 06/01/23 09:39 JF Laptop 06/01/23 09:43 06/01/23 09:39 Wound Center Nurse 2 -Time 09:40 -Correct Patient Yes -Correct Side, Site, Position Yes -Correct Procedure Yes -Procedure Performed Yes -Type of Procedure Debridement -Clinical Debridement Muscle / Fascia -Tissue Removed Muscle,Fascia -Post Debridement (cm) - Length 5.5 -Post Debridement (cm) - Width 4.5 -Post Debridement (cm) - Depth 3.0 -Total Square (Post) (cm) 24.75 -Area of Debridement (cm) - Length 5.5 -Area of Debridement (cm) - Width 4.5 -Total Square (Area) (cm) 24.75 -Tunneling Yes -Tunneling Position (O'clock) 12 -Tunneling Distance (cm) 6.9 -Undermining/Tunneling No -Circular Undermining No -Wound/Ulcer Outcome Not Healed -Ulcer Cleansing Rinsed/ Irrigated with Saline -Foul Odor after Cleansing No -Bioengineered Tissue No -Bleeding Controlled with Pressure -Treatment Response Procedure Tolerated Well -Offloading No -Pressure Reduction Wheelchair cushion -Debridement - Muscle / Fascia, 1st Yes 20sq cm -Debridement, Muscle/Fascia, ea addt'l 1 20sq cm or part thereof Pain Scale: 0-10 Numeric Is Patient Pain Free? Yes DILCIA - Nurse 3 - General Ulcer D/C NN Start: 06/01/23 09:18 Freq: Status: Active Protocol: Activity Type Activity Date Activity User E-sign Co-sign Detail Recorded Client Recorded Date Recorded By Document 06/01/23 09:56 DL Desktop 06/01/23 09:59 DL 06/01/23 09:56 Wound Care Center Nurse 3 #5- R ischium -Ulcer Cleansing Rinsed/ Irrigated with Saline -Foul Odor after Cleansing No -Primary Dressing Applied Silvercel -Other Covering ABD -Silvercel 1 Treatment Response Procedure Tolerated Well Pain Scale: 0-10 Numeric Is Patient Pain Free? Yes WC - Visit Discharge Discharge Condition Stable Ambulatory Status Wheelchair Facility Type Home Health Orders Sent Yes Assessment/Plan Assessment/Plan (1) Right ischial pressure sore, stage 4: CODE(S): L89.314 - Pressure ulcer of right buttock, stage 4 (2) Osteomyelitis of right side of pelvis: CODE(S): M86.9 - Osteomyelitis, unspecified (3) Smoker: CODE(S): F17.200 - Nicotine dependence, unspecified, uncomplicated (4) Wheelchair dependent: CODE(S): Z99.3 - Dependence on wheelchair PLAN: Plan Wound care - Stop the Dakins moistened gauze and start Silver alginate (preferably name brand such as Silvercel, so it does not fall apart when removing the dressing) into the tunnel and base of ulcer covered by ABD/super absorber 1-2 times per day and as needed. They have home health to help assist with his dressing changes. Operative tissue cultures positive for MSSA and Cutibacterium acnes. Bone cultures positive for MSSA and Corynebacterium striatum. He completed Augmentin. He was seen in the ED on 05/02/22 because of a couple falls he experienced since his surgery. CT of his pelvis showed some bony disruption at the level of the inferior pubic ramus suggests a mild osteomyelitis. Prealbumin 13.4 on 04/29/22. Anticipate increased metabolic demands from the infection. Encourage nutritional supplementation with protein to help the healing process. A wound culture was obtained on 07/14/22, which was positive for Staphylococcus aureus and was treated with Augmentin. Wound culture obtained 11/10/22 which was positive for MSSA and he completed the Augmentin. Wound culture obtained 04/06/23 which was positive for Staphylococcus aureus, Corynebacterium striatum, and Enterococcus faecalis. He is being treated with Augmentin, which he just refilled. Patient had a diverting colostomy on 11/21/22. The diversion of the stool has made a noticeable difference in the healing of the ulcer. Encouraged increased protein intake to help with wound healing. Patient states that he stopped smoking after his last wound care visit on 05/19/23! Stressed importance of not smoking how how it impacts wound healing and potential future surgeries, including flaps. I phoned his to discuss if she has any questions with the new dressing changes. I also wanted to know if she would like him to be referred to a tertiary center for a possible flap. She states she would prefer to keep him close to home because she prefers [facility] over the larger medical centers. I discussed that we have a new plastic surgeon coming in October, who might be able to do his flap. She states she is ok doing wound care until then, unless, Dr. Messina is able to take him to surgery for an operative debridement sooner. Follow up 2 weeks. From previous note from Dr. Messina: The ulcer is ready for further operative debridement in preparation for closure with a fasciocutaneous flap or a muscle flap since he is wheelchair dependent. The patient has expressed interest in pursuing further surgery with the goal of a closed wound. Patient is a smoker. Encouraged patient to stop smoking as it may have deleterious effects on wound healing. It will affect the healing of the flap and may lead to incisional breakdown and recurrence of the pressure sore. He states he will try to stop smoking. Since this is an elective procedure, we are in no hurry to proceed. So will check a nicotine level prior to any surgery that is scheduled. Also would like to maximize his nutrition which would maximize the healing process. His last Prealbumin from 04/29/22 was 13.4. Ideally would like to see it above 20. At the time of the excision of the pressure sore, will check soft tissue and bone cultures. A positive culture will necessitate antibiotic therapy. This way we will know which antibiotics to use perioperatively. If the culture shows MRSA or Pseudomonas or MDR organisms, I would treat for 6 weeks before proceeding with wound closure. Postoperatively he will be on bedrest and would most likely benefit from a stay at an [facility] during this time. Patient was informed of the risks and complications of the procedure including alternatives to surgery. These were discussed with the patient personally. Patient voices understanding and wishes to proceed. Potential risks and complications included but not inclusive of bleeding, infection, seroma, hematoma, bruising, swelling, prolonged need for drains, loss of sensation to skin, partial or complete loss of skin flap and/or skin graft, wound breakdown, need for wound care, poor scarring, poor aesthetic outcome, intra operative cardiac or neurologic events, DVT, PE, and reaction to anesthesia.
[2023-06-15 09:34] VITALS: BP 144/89; PULSE 85; RESP 16; TEMP 36.3; BMI 35.5
--- NOTE | 2023-06-15 13:08 | PCM.WC.PN ---
History of Present Illness Date of Service: 06/15/23 Chief Complaint: Right ischial pressure sore, Stage IV. History of Wound: This is a 67-year-old white male who presented to the wound healing center with complaints of pressure ulcer to right buttock area with extension to the right ischial bone. This started in October,. Patient's was treating with OTC creams and keeping area clean. The ulcer starting increasing in size and went to the Emergency Department on 02/08/22. CT showed subcutaneous and deep soft tissue involvement and possible early abscess formation. The bone was not addressed. He had a wound culture on 02/28/22. It was positive for E. coli, Staphylococcus aureus, and Clostridium perfringens. He was treated with Augmentin. The patient has very limited mobility as a result of a prior spine injury/surgery. He utilizes a wheelchair at all times. He has not been using his billy lift at home to transfer but has been using a board to slide himself from his bed to chair at home. He sits in his wheelchair almost all day, not really able to change positions. They finally obtained a low air loss overlay to their regular mattress at home. A roho cushion was ordered for his wheelchair. Patient is a smoker. Surgery 04/28/22 - Excision right ischial pressure sore, Stage IV, with partial ostectomy for osteomyelitis. Size of wound 8 x 7 x 4.5 cm. Operative tissue cultures positive for MSSA and Cutibacterium acnes. Bone cultures positive for MSSA and Corynebacterium striatum. He is being treated with Augmentin. Pathology from surgery 04/28/22 showed chronic reparative and reactive change. No evidence of acute osteomyelitis. He had a diverting colostomy placed on 11/21/[address] Romero. Wound culture from 07/14/22 positive for Staphylococcus aureus and he was treated with Augmentin. Wound culture obtained 11/10/22 which was positive for Staphylococcus aureus and he was treated with Augmentin. Wound culture obtained 04/06/23 which was positive for Staphylococcus aureus, Corynebacterium striatum, and Enterococcus faecalis. He is being treated with Augmentin. Prealbumin 13.4 on 04/29/22. Encourage nutritional supplementation with protein to help the healing process. He was seen in the ED on 05/02/22 because of a couple falls he experienced since his surgery. CT of his pelvis showed some bony disruption at the level of the inferior pubic ramus suggests a mild osteomyelitis. Today he denies fever. His appetite is ok. Progress of Wound: Stable. Bone still palpable but covered with granulation tissue. It is still uncomfortable when palpating the bone. Wound bed is nice pink color. He continues to have maceration on the distal edges of the ulcer. He states they are changing the dressing twice a day. He states he has continued to not smoke cigarettes. I spoke to his after his last visit and she does not want him referred to a tertiary center for further debridements or flap due to transportation issues. We will continue to manage him his ulcer here locally for the time being. Objective Data Objective Data Vital Signs: Vital Signs Temp Pulse Resp BP O2 Del Method 97.4 F L 85 16 144/89 H Room Air 06/15/23 09:34 06/15/23 09:34 06/15/23 09:34 06/15/23 09:34 06/15/23 09:34 Oxygen Delivery Method Room Air Weight: 220 lb Body Mass Index (BMI) 35.5 Charges/Coding Procedures Integumentary 111xxx-113xx: [id number] Lillian musc/fascia 20 sq cm/< (ICD-10 - L89.314, M86.9, F17.200, Z99.3) Debridement Note Debridement Note Wound debrided: #5 Right ischial area. Laterality: Right Wound Grade/Stage: IV. Type of Debridement: Excisional debridement Anesthesia Used: 5% Lidocaine Gel Depth: Down to and including healthy tissue, in the subcutaneous layer, to muscle and to bone (bone is palpable but not exposed.) Percentage of wound debrided: 100 Instrument Used: 7mm curette Tissue Removed: subcutaneous tissue and muscle. Severity: Fat Layer Exposed (muscle is exposed. bone is palpable but not exposed. Bone was not debrided today.) Amount of bleeding with debridement: Mild Bleeding Controlled with: Pressure and Compression and gauze Patient tolerated procedure: Patient tolerated procedure well Debridement Free Text: Bone palpated but not debrided. He has a tunnel at 12 o'clock that is stable. The base of the ulcer is nice beefy pink color. He continues to have maceration around the edges of the ulcer. Post-Debridement Measurements and Additional Note: Post-Debridement Measurements/Treatment DILCIA - Nurse 1 - General Ulcer Assessment Start: 06/01/23 09:18 Freq: Status: Active Protocol: KIRA Activity Type Activity Date Activity User E-sign Co-sign Detail Recorded Client Recorded Date Recorded By Document 06/01/23 09:23 KW Desktop 06/01/23 09:26 KW Document 06/15/23 09:34 BMF Desktop 06/15/23 09:39 BMF 06/01/23 06/15/23 09:23 09:34 WC - Today's Visit Information Type of service Follow-up Visit Follow-up Visit (Physician/PHOTO PRINT SPECIALIST (Physician/PHOTO PRINT SPECIALIST ) ) Arrival Mode Wheelchair Wheelchair Transfer Assistance Billy Lift Billy Lift Transfer Assist (Other) 2 Patient Identification Verified (Name & Yes Yes ) Patient Requires Transmission-Based No No Precautions Height and Weight Body Mass Index (BMI) 35.5 35.5 BMI Classification Obese Obese Vital Signs Temperature (97.8 F-99.1 F) 96.7 F L 97.4 F L Temperature Source Temporal Temporal Pulse Rate (60-100) 79 85 Pulse Location Monitor Monitor Respiratory Rate (12-18) 16 16 Respiratory rate source Observation Observation Oxygen Delivery Method Room Air Blood Pressure (90/60-120/80) 133/77 H 144/89 H Blood Pressure Mean (mm Hg) 95 107 Source Monitor Monitor Position Sitting Blood Pressure Location Right Forearm History Since Last Visit- (Skip if this is Patient's initial visit) Have you changed medications since your No No last visit? Any new allergies or adverse reactions No No Had a fall/change in ADL's that may No No increase risk of falls Signs or symptoms of abuse and/or No No neglect since last visit Have you been in the hospital since your No No last visit? Has dressing in place as prescribed Yes Yes Has compression in place as prescribed N/A N/A Has offloadiing in place as prescribed N/A Experienced any changes in pain level or No No management Left Footwear Regular Shoe Right Footwear Regular Shoe Pain Scale: 0-10 Numeric Is Patient Pain Free? Yes Yes DILCIA - Nurse 1 - General Ulcer Measurement Start: 06/01/23 09:18 Freq: Status: Active Protocol: Activity Type Activity Date Activity User E-sign Co-sign Detail Recorded Client Recorded Date Recorded By Document 06/01/23 09:23 KW Desktop 06/01/23 09:26 KW Document 06/15/23 09:34 [facility] Desktop 06/15/23 09:39 [facility] 06/01/23 06/15/23 09:23 09:34 Wound Center Nurse 1 #5- R ischium -Combined with other wound No -Current Size (cm) - Length 4.8 5.5 -Current Size (cm) - Width 2.9 4.5 -Current Size (cm) - Depth 3.2 3.7 -Total Square Cm 13.92 24.75 -Photo Taken No -Epithelialization None Present -Tunneling No -Tunneling Position (O'clock) 12 -Tunneling Distance (cm) 7.5 -Undermining/Tunneling Yes -Undermining/Tunneling Starts (O'clock 12 ) -Undermining/Tunneling Ends (O'clock) 2 -Maximum Distance (cm) 3.1 -Circular Undermining No -Exudate Amt Medium Medium -Exudate Type Serosanguineous Serosanguineous -Wound Margin Distinct, Distinct, Outline Outline Attached Attached -Granulation Amt Large (67-100%) Large (67-100%) -Granulation Quality Red Red -Slough/Fibrin Yes -Necrosis Amt None Present (0 Small (1-33%) %) -Necrotic Tissue Type Adherent Slough -Structure Exposed N/A -Texture (Michelle-wound Skin Appearance) Scarring Assessed, Scarring -Moisture (Michelle-wound Skin Appearance) Maceration Assessed -Color (Michelle-wound Skin Appearance) No Abnormality Assessed -Temperature (Michelle-wound Skin No Abnormality No Abnormality Appearance) (Pt Warm) (Pt Warm) -Tenderness on Palpation (Michelle-wound No No Skin Appearance) -Ulcer Cleansing Soap and Water Soap and Water -Foul Odor after Cleansing No No -Anesthetic Used 5% Lidocaine 4% Lidocaine Gel Solution WC - Nurse 2 - General Ulcer CM Notes Start: 06/01/23 09:18 Freq: Status: Active Protocol: Activity Type Activity Date Activity User E-sign Co-sign Detail Recorded Client Recorded Date Recorded By Document 06/01/23 09:39 Laptop 06/01/23 09:43 Document 06/15/23 09:51 Laptop 06/15/23 09:54 06/01/23 06/15/23 09:39 09:51 Wound Center Nurse 2 #5- R ischium -Time 09:40 09:51 -Correct Patient Yes Yes -Correct Side, Site, Position Yes Yes -Correct Procedure Yes Yes -Procedure Performed Yes Yes -Type of Procedure Debridement Debridement -Clinical Debridement Muscle / Fascia Muscle / Fascia -Tissue Removed Muscle,Fascia Muscle,Fascia -Post Debridement (cm) - Length 5.5 5.7 -Post Debridement (cm) - Width 4.5 3.5 -Post Debridement (cm) - Depth 3.0 2.6 -Total Square (Post) (cm) 24.75 19.95 -Area of Debridement (cm) - Length 5.5 5.7 -Area of Debridement (cm) - Width 4.5 3.5 -Total Square (Area) (cm) 24.75 19.95 -Tunneling Yes Yes -Tunneling Position (O'clock) 12 12 -Tunneling Distance (cm) 6.9 7.7 -Undermining/Tunneling No No -Circular Undermining No No -Wound/Ulcer Outcome Not Healed Not Healed -Ulcer Cleansing Rinsed/ Rinsed/ Irrigated with Irrigated with Saline Saline -Foul Odor after Cleansing No No -Bioengineered Tissue No No -Bleeding Controlled with Pressure Pressure -Treatment Response Procedure Procedure Tolerated Well Tolerated Well -Offloading No No -Pressure Reduction Wheelchair Wheelchair cushion cushion -Debridement - Muscle / Fascia, 1st Yes Yes 20sq cm -Debridement, Muscle/Fascia, ea addt'l 1 20sq cm or part thereof Pain Scale: 0-10 Numeric Is Patient Pain Free? Yes Yes WC - Nurse 3 - General Ulcer D/C NN Start: 06/01/23 09:18 Freq: Status: Active Protocol: Activity Type Activity Date Activity User E-sign Co-sign Detail Recorded Client Recorded Date Recorded By Document 06/01/23 09:56 DL Desktop 06/01/23 09:59 DL Document 06/15/23 10:09 [facility] Desktop 06/15/23 10:10 [facility] 06/01/23 06/15/23 09:56 10:09 Wound Care Center Nurse 3 #5- R ischium -Ulcer Cleansing Rinsed/ Rinsed/ Irrigated with Irrigated with Saline Saline -Foul Odor after Cleansing No No -Primary Dressing Applied Silvercel Silvercel -Other Dressing abd -Primary Dressing Covered/Secured with Dry Gauze, Secured with Tape -Other Covering ABD fluffed gauze -Silvercel 1 1 Treatment Response Procedure Procedure Tolerated Well Tolerated Well Pain Scale: 0-10 Numeric Is Patient Pain Free? Yes Yes WC - Visit Discharge Discharge Condition Stable Stable Ambulatory Status Wheelchair Wheelchair Transportation [facility] Type Home Health Home Health Orders Sent Yes Assessment/Plan Assessment/Plan (1) Right ischial pressure sore, stage 4: CODE(S): L89.314 - Pressure ulcer of right buttock, stage 4 (2) Osteomyelitis of right side of pelvis: CODE(S): M86.9 - Osteomyelitis, unspecified (3) Smoker: CODE(S): F17.200 - Nicotine dependence, unspecified, uncomplicated (4) Wheelchair dependent: CODE(S): Z99.3 - Dependence on wheelchair PLAN: Plan Wound care - Silver alginate (preferably name brand such as Silvercel, so it does not fall apart when removing the dressing) into the tunnel and base of ulcer covered with fluffed gauze and toppe by ABD/super absorber 1-2 times per day and as needed. They have home health to help assist with his dressing changes. Operative tissue cultures positive for MSSA and Cutibacterium acnes. Bone cultures positive for MSSA and Corynebacterium striatum. He completed Augmentin. He was seen in the ED on 05/02/22 because of a couple falls he experienced since his surgery. CT of his pelvis showed some bony disruption at the level of the inferior pubic ramus suggests a mild osteomyelitis. Prealbumin 13.4 on 04/29/22. Anticipate increased metabolic demands from the infection. Encourage nutritional supplementation with protein to help the healing process. A wound culture was obtained on 07/14/22, which was positive for Staphylococcus aureus and was treated with Augmentin. Wound culture obtained 11/10/22 which was positive for MSSA and he completed the Augmentin. Wound culture obtained 04/06/23 which was positive for Staphylococcus aureus, Corynebacterium striatum, and Enterococcus faecalis. He is being treated with Augmentin, which he just refilled. Patient had a diverting colostomy on 11/21/22. The diversion of the stool has made a noticeable difference in the healing of the ulcer. Encouraged increased protein intake to help with wound healing. Patient states that he stopped smoking after his last wound care visit on 05/19/23! Stressed importance of not smoking how how it impacts wound healing and potential future surgeries, including flaps. I phoned his to discuss and she would prefer he stay in [place] if possible due to transportation issues. Follow up 2-[address] Messina. From previous note from Dr. Messina: The ulcer is ready for further operative debridement in preparation for closure with a fasciocutaneous flap or a muscle flap since he is wheelchair dependent. The patient has expressed interest in pursuing further surgery with the goal of a closed wound. Patient is a smoker. Encouraged patient to stop smoking as it may have deleterious effects on wound healing. It will affect the healing of the flap and may lead to incisional breakdown and recurrence of the pressure sore. He states he will try to stop smoking. Since this is an elective procedure, we are in no hurry to proceed. So will check a nicotine level prior to any surgery that is scheduled. Also would like to maximize his nutrition which would maximize the healing process. His last Prealbumin from 04/29/22 was 13.4. Ideally would like to see it above 20. At the time of the excision of the pressure sore, will check soft tissue and bone cultures. A positive culture will necessitate antibiotic therapy. This way we will know which antibiotics to use perioperatively. If the culture shows MRSA or Pseudomonas or MDR organisms, I would treat for 6 weeks before proceeding with wound closure. Postoperatively he will be on bedrest and would most likely benefit from a stay at an [facility] during this time. Patient was informed of the risks and complications of the procedure including alternatives to surgery. These were discussed with the patient personally. Patient voices understanding and wishes to proceed. Potential risks and complications included but not inclusive of bleeding, infection, seroma, hematoma, bruising, swelling, prolonged need for drains, loss of sensation to skin, partial or complete loss of skin flap and/or skin graft, wound breakdown, need for wound care, poor scarring, poor aesthetic outcome, intra operative cardiac or neurologic events, DVT, PE, and reaction to anesthesia.
== END 2023-06-28 23:59 | disposition home or self-care (01) ==
LOC: WC 09:30
PROVIDERS: PCP Family Medicine; Referring Provider Physician Assistant; Visit Provider Nurse Practitioner Family
DX: L89.214 Pressure ulcer of right hip, stage 4 (principal); L89.314 Pressure ulcer of right buttock, stage 4; M86.8X8 Other osteomyelitis, other site; F17.200 Nicotine dependence, unspecified, uncomplicated; Z99.3 Dependence on wheelchair
CPT/HCPCS: 11043; 11046

== ENCOUNTER 2023-07-22 13:00 | Outpatient (RCR) | payer BC, MEDICARE, SELFPAY ==
[2023-06-29 00:27] VITALS: BP 144/89; PULSE 85; RESP 16; TEMP 36.3; BMI 35.5
[2023-06-29 09:09] VITALS: BP 151/87; PULSE 74; RESP 16; TEMP 36.7; BMI 35.5
--- NOTE | 2023-06-29 12:28 | PCM.WC.PN ---
History of Present Illness Date of Service: 06/29/23 Chief Complaint: Right ischial pressure sore, Stage IV. History of Wound: This is a 67-year-old white male who presented to the wound healing center with complaints of pressure ulcer to right buttock area with extension to the right ischial bone. This started in October,. Patient's was treating with OTC creams and keeping area clean. The ulcer starting increasing in size and went to the Emergency Department on 02/08/22. CT showed subcutaneous and deep soft tissue involvement and possible early abscess formation. The bone was not addressed. He had a wound culture on 02/28/22. It was positive for E. coli, Staphylococcus aureus, and Clostridium perfringens. He was treated with Augmentin. The patient has very limited mobility as a result of a prior spine injury/surgery. He utilizes a wheelchair at all times. He has not been using his billy lift at home to transfer but has been using a board to slide himself from his bed to chair at home. He sits in his wheelchair almost all day, not really able to change positions. They finally obtained a low air loss overlay to their regular mattress at home. A roho cushion was ordered for his wheelchair. Patient is a smoker. Surgery 04/28/22 - Excision right ischial pressure sore, Stage IV, with partial ostectomy for osteomyelitis. Size of wound 8 x 7 x 4.5 cm. Operative tissue cultures positive for MSSA and Cutibacterium acnes. Bone cultures positive for MSSA and Corynebacterium striatum. He is being treated with Augmentin. Pathology from surgery 04/28/22 showed chronic reparative and reactive change. No evidence of acute osteomyelitis. He had a diverting colostomy placed on 11/21/[address] Romero. Wound culture from 07/14/22 positive for Staphylococcus aureus and he was treated with Augmentin. Wound culture obtained 11/10/22 which was positive for Staphylococcus aureus and he was treated with Augmentin. Wound culture obtained 04/06/23 which was positive for Staphylococcus aureus, Corynebacterium striatum, and Enterococcus faecalis. He is being treated with Augmentin. Prealbumin 13.4 on 04/29/22. Encourage nutritional supplementation with protein to help the healing process. He was seen in the ED on 05/02/22 because of a couple falls he experienced since his surgery. CT of his pelvis showed some bony disruption at the level of the inferior pubic ramus suggests a mild osteomyelitis. Today he denies fever. His appetite is ok. Progress of Wound: Stable. Bone still palpable but covered with granulation tissue. It is still uncomfortable when palpating the bone. Wound bed is nice pink color. He continues to have maceration on the distal edges of the ulcer. He has received a new wheel chair. He states he has continued to not smoke cigarettes. He is interested in surgical options for treatment. He states that they now have a working van to transport him in. Objective Data Objective Data Vital Signs: Vital Signs Temp Pulse Resp BP O2 Del Method 98.1 F 74 16 151/87 H Room Air 06/29/23 09:09 06/29/23 09:09 06/29/23 09:09 06/29/23 09:09 06/29/23 09:09 Oxygen Delivery Method Room Air Weight: 220 lb Body Mass Index (BMI) 35.5 Charges/Coding Procedures Integumentary 111xxx-113xx: [id number] Lillian musc/fascia 20 sq cm/< (ICD-10 - L89.314, M86.9, F17.200, Z99.3) Add On Codes: 94922 Lillian musc/fascia add-on Debridement Note Debridement Note Post-Debridement Measurements and Additional Note: Post-Debridement Measurements/Treatment - Nurse 1 - General Ulcer Assessment Start: 06/29/23 09:09 Freq: Status: Active Protocol: DILCIA.NORIS Activity Type Activity Date Activity User E-sign Co-sign Detail Recorded Client Recorded Date Recorded By Document 06/29/23 09:09 [facility] Desktop 06/29/23 09:11 [facility] 06/29/23 09:09 - Today's Visit Information Type of service Follow-up Visit (Physician/S[employer]IOR [employer] ) Arrival Mode Wheelchair Transfer Assistance Billy Lift Transfer Assist (Other) 3 Patient Identification Verified (Name & Yes ) Patient Requires Transmission-Based No Precautions Height and Weight Body Mass Index (BMI) 35.5 BMI Classification Obese Vital Signs Temperature (97.8 F-99.1 F) 98.1 F Temperature Source Temporal Pulse Rate (60-100) 74 Pulse Location Monitor Respiratory Rate (12-18) 16 Respiratory rate source Observation Oxygen Delivery Method Room Air Blood Pressure (90/60-120/80) 151/87 H Blood Pressure Mean (mm Hg) 108 Source Monitor Position Sitting Blood Pressure Location Left Forearm History Since Last Visit- (Skip if this is Patient's initial visit) Have you changed medications since your No last visit? Any new allergies or adverse reactions No Had a fall/change in ADL's that may No increase risk of falls Signs or symptoms of abuse and/or No neglect since last visit Have you been in the hospital since your No last visit? Has dressing in place as prescribed Yes Has compression in place as prescribed N/A Has offloadiing in place as prescribed N/A Experienced any changes in pain level or No management Left Footwear Regular Shoe Right Footwear Regular Shoe Pain Scale: 0-10 Numeric Is Patient Pain Free? Yes WC - Nurse 1 - General Ulcer Measurement Start: 06/29/23 09:09 Freq: Status: Active Protocol: Activity Type Activity Date Activity User E-sign Co-sign Detail Recorded Client Recorded Date Recorded By Document 06/29/23 09:09 [facility] Desktop 06/29/23 09:11 [facility] 06/29/23 09:09 Wound Center Nurse 1 #5- R ischium -Combined with other wound No -Current Size (cm) - Length 5.6 -Current Size (cm) - Width 4 -Current Size (cm) - Depth 2.8 -Total Square Cm 22.4 -Date of Last Picture (Recall this 06/29/23 field) -Photo Taken Yes -Epithelialization Small 1-33% -Tunneling No -Undermining/Tunneling Yes -Undermining/Tunneling Starts (O'clock 12 ) -Undermining/Tunneling Ends (O'clock) 2 -Maximum Distance (cm) 6 -Circular Undermining No -Exudate Amt Large -Exudate Type Serosanguineous -Wound Margin Distinct, Outline Attached -Granulation Amt Large (67-100%) -Granulation Quality Red -Slough/Fibrin Yes -Necrosis Amt Small (1-33%) -Necrotic Tissue Type Adherent Slough -Texture (Michelle-wound Skin Appearance) Assessed, Scarring -Moisture (Michelle-wound Skin Appearance) Assessed -Color (Michelle-wound Skin Appearance) Assessed -Temperature (Michelle-wound Skin No Abnormality Appearance) (Pt Warm) -Tenderness on Palpation (Michelle-wound No Skin Appearance) -Ulcer Cleansing Soap and Water -Foul Odor after Cleansing No -Anesthetic Used 4% Lidocaine Solution - Nurse 2 - General Ulcer CM Notes Start: 06/29/23 09:09 Freq: Status: Active Protocol: Activity Type Activity Date Activity User E-sign Co-sign Detail Recorded Client Recorded Date Recorded By Document 06/29/23 09:34 Laptop 06/29/23 09:35 06/29/23 09:34 Wound Center Nurse 2 -Time 09:34 -Correct Patient Yes -Correct Side, Site, Position Yes -Correct Procedure Yes -Procedure Performed Yes -Type of Procedure Debridement -Clinical Debridement Muscle / Fascia -Tissue Removed Muscle,Fascia -Post Debridement (cm) - Length 5.7 -Post Debridement (cm) - Width 4.3 -Post Debridement (cm) - Depth 2.1 -Total Square (Post) (cm) 24.51 -Area of Debridement (cm) - Length 5.7 -Area of Debridement (cm) - Width 4.3 -Total Square (Area) (cm) 24.51 -Tunneling Yes -Tunneling Position (O'clock) 12 -Tunneling Distance (cm) 7.8 -Undermining/Tunneling No -Circular Undermining No -Wound/Ulcer Outcome Not Healed -Ulcer Cleansing Rinsed/ Irrigated with Saline -Foul Odor after Cleansing No -Bioengineered Tissue No -Bleeding Controlled with Pressure -Treatment Response Procedure Tolerated Well -Offloading No -Pressure Reduction Wheelchair cushion -Debridement - Muscle / Fascia, 1st Yes 20sq cm -Debridement, Muscle/Fascia, ea addt'l 1 20sq cm or part thereof Pain Scale: 0-10 Numeric Is Patient Pain Free? Yes - Nurse 3 - General Ulcer D/C NN Start: 06/29/23 09:09 Freq: Status: Active Protocol: Activity Type Activity Date Activity User E-sign Co-sign Detail Recorded Client Recorded Date Recorded By Document 06/29/23 09:40 [facility] Desktop 06/29/23 09:41 [facility] 06/29/23 09:40 Wound Care Center Nurse 3 #5- R ischium -Primary Dressing Applied Aquacel AG 4x4 -Primary Dressing Covered/Secured with Dry Gauze, Secured with Tape -Aquacel AG 4x4 1 Pain Scale: 0-10 Numeric Is Patient Pain Free? Yes WC - Visit Discharge Discharge Condition Stable Ambulatory Status Ambulatory Medication Reconcilliation completed & No provided to patient/care provider Clinical Summary of Care Provided Yes Assessment/Plan Assessment/Plan (1) Right ischial pressure sore, stage 4: CODE(S): L89.314 - Pressure ulcer of right buttock, stage 4 (2) Osteomyelitis of right side of pelvis: CODE(S): M86.9 - Osteomyelitis, unspecified (3) Smoker: CODE(S): F17.200 - Nicotine dependence, unspecified, uncomplicated (4) Wheelchair dependent: CODE(S): Z99.3 - Dependence on wheelchair PLAN: Plan Wound care - Silver alginate (preferably name brand such as Silvercel, so it does not fall apart when removing the dressing) into the tunnel and base of ulcer covered with fluffed gauze and toppe by ABD/super absorber 1-2 times per day and as needed. They have home health to help assist with his dressing changes. Operative tissue cultures positive for MSSA and Cutibacterium acnes. Bone cultures positive for MSSA and Corynebacterium striatum. He completed Augmentin. He was seen in the ED on 05/02/22 because of a couple falls he experienced since his surgery. CT of his pelvis showed some bony disruption at the level of the inferior pubic ramus suggests a mild osteomyelitis. Prealbumin 13.4 on 04/29/22. Anticipate increased metabolic demands from the infection. Encourage nutritional supplementation with protein to help the healing process. A wound culture was obtained on 07/14/22, which was positive for Staphylococcus aureus and was treated with Augmentin. Wound culture obtained 11/10/22 which was positive for MSSA and he completed the Augmentin. Wound culture obtained 04/06/23 which was positive for Staphylococcus aureus, Corynebacterium striatum, and Enterococcus faecalis. He is being treated with Augmentin, which he just refilled. Patient had a diverting colostomy on 11/21/22. The diversion of the stool has made a noticeable difference in the appearance of the ulcer. Encouraged increased protein intake to help with wound healing. Patient states that he stopped smoking after his wound care visit on 05/19/23. He continues to deny smoking. Stressed importance of not smoking how how it impacts wound healing and potential future surgeries, including flaps. Follow up 2-[address] Messina to discuss operative debridement. From previous note from Dr. Messina: The ulcer is ready for further operative debridement in preparation for closure with a fasciocutaneous flap or a muscle flap since he is wheelchair dependent. The patient has expressed interest in pursuing further surgery with the goal of a closed wound. Patient is a smoker. Encouraged patient to stop smoking as it may have deleterious effects on wound healing. It will affect the healing of the flap and may lead to incisional breakdown and recurrence of the pressure sore. He states he will try to stop smoking. Since this is an elective procedure, we are in no hurry to proceed. So will check a nicotine level prior to any surgery that is scheduled. Also would like to maximize his nutrition which would maximize the healing process. His last Prealbumin from 04/29/22 was 13.4. Ideally would like to see it above 20. At the time of the excision of the pressure sore, will check soft tissue and bone cultures. A positive culture will necessitate antibiotic therapy. This way we will know which antibiotics to use perioperatively. If the culture shows MRSA or Pseudomonas or MDR organisms, I would treat for 6 weeks before proceeding with wound closure. Postoperatively he will be on bedrest and would most likely benefit from a stay at an [facility] during this time. Patient was informed of the risks and complications of the procedure including alternatives to surgery. These were discussed with the patient personally. Patient voices understanding and wishes to proceed. Potential risks and complications included but not inclusive of bleeding, infection, seroma, hematoma, bruising, swelling, prolonged need for drains, loss of sensation to skin, partial or complete loss of skin flap and/or skin graft, wound breakdown, need for wound care, poor scarring, poor aesthetic outcome, intra operative cardiac or neurologic events, DVT, PE, and reaction to anesthesia.
[2023-07-22 13:04] VITALS: BP 154/105; PULSE 90; RESP 18; TEMP 35.9; BMI 35.5
--- NOTE | 2023-07-22 16:08 | PN.PCM_ITS ---
History of Present Illness Date of Service: 07/22/23 Chief Complaint: Right ischial pressure sore, Stage IV. History of Wound: This is a 67-year-old white male who presented to the wound healing center with complaints of pressure ulcer to right buttock area with extension to the right ischial bone. This started in October,. Patient's was treating with OTC creams and keeping area clean. The ulcer starting increasing in size and went to the Emergency Department on 02/08/22. CT showed subcutaneous and deep soft tissue involvement and possible early abscess formation. The bone was not addressed. He had a wound culture on 02/28/22. It was positive for E. coli, Staphylococcus aureus, and Clostridium perfringens. He was treated with Augmentin. The patient has very limited mobility as a result of a prior spine injury/surgery. He utilizes a wheelchair at all times. He has not been using his billy lift at home to transfer but has been using a board to slide himself from his bed to chair at home. He sits in his wheelchair almost all day, not really able to change positions. They finally obtained a low air loss overlay to their regular mattress at home. A roho cushion was ordered for his wheelchair. Patient is a smoker. Surgery 04/28/22 - Excision right ischial pressure sore, Stage IV, with partial ostectomy for osteomyelitis. Size of wound 8 x 7 x 4.5 cm. Operative tissue cultures positive for MSSA and Cutibacterium acnes. Bone cultures positive for MSSA and Corynebacterium striatum. He is being treated with Augmentin. Pathology from surgery 04/28/22 showed chronic reparative and reactive change. No evidence of acute osteomyelitis. He had a diverting colostomy placed on 11/21/[address] Romero. Wound culture from 07/14/22 positive for Staphylococcus aureus and he was treated with Augmentin. Wound culture obtained 11/10/22 which was positive for Staphylococcus aureus and he was treated with Augmentin. Wound culture obtained 04/06/23 which was positive for Staphylococcus aureus, Corynebacterium striatum, and Enterococcus faecalis. He is being treated with Augmentin. Prealbumin 13.4 on 04/29/22. Encourage nutritional supplementation with protein to help the healing process. He was seen in the ED on 05/02/22 because of a couple falls he experienced since his surgery. CT of his pelvis showed some bony disruption at the level of the inferior pubic ramus suggests a mild osteomyelitis. Today he denies fever. His appetite is ok. Progress of Wound: Stable. Bone still palpable but covered with granulation tissue. It is still uncomfortable when palpating the bone. Wound bed is nice pink color. He continues to have maceration on the distal edges of the ulcer. His states that the Aquacel-Ag is packed into the base of the tunnel and ulcer, but it balls up and comes out. This may be caused when he is moving/transferring, it comes out of the tunnel. Objective Data Objective Data Vital Signs: Vital Signs Temp Pulse Resp BP O2 Del Method 96.6 F L 90 18 154/105 H Room Air 07/22/23 13:04 07/22/23 13:04 07/22/23 13:04 07/22/23 13:04 06/29/23 09:09 Oxygen Delivery Method Room Air Weight: 220 lb Body Mass Index (BMI) 35.5 Charges/Coding Procedures Integumentary 111xxx-113xx: [id number] Lillian musc/fascia 20 sq cm/< (ICD-10 - L89.314, M86.9, F17.200, Z99.3) Debridement Note Debridement Note Wound debrided: #5 Right ischial area. Laterality: Right Wound Grade/Stage: IV. Type of Debridement: Excisional debridement Anesthesia Used: 5% Lidocaine Gel Depth: Down to and including healthy tissue, in the subcutaneous layer, to muscle and to bone (bone is palpable but not exposed.) Percentage of wound debrided: 100 Instrument Used: 7mm curette Tissue Removed: subcutaneous tissue and muscle. Severity: Fat Layer Exposed (muscle is exposed. bone is palpable but not exposed. Bone was not debrided today.) Amount of bleeding with debridement: Mild Bleeding Controlled with: Pressure and Compression and gauze Patient tolerated procedure: Patient tolerated procedure well Debridement Free Text: Bone palpated but not debrided. He has a tunnel at 12 o'clock that is stable. The base of the ulcer is nice beefy pink color. He continues to have maceration around the edges of the ulcer. Post-Debridement Measurements and Additional Note: Post-Debridement Measurements/Treatment WC - Nurse 1 - General Ulcer Assessment Start: 06/29/23 09:09 Freq: Status: Active Protocol: KIRA Activity Type Activity Date Activity User E-sign Co-sign Detail Recorded Client Recorded Date Recorded By Document 06/29/23 09:09 F Desktop 06/29/23 09:11 [facility] Document 07/22/23 13:04 DL Desktop 07/22/23 13:13 DL 06/29/23 07/22/23 09:09 13:04 - Today's Visit Information Type of service Follow-up Visit Follow-up Visit (Physician/COMMUNITY ACTION WORKER (Physician/COMMUNITY ACTION WORKER ) ) Arrival Mode Wheelchair Wheelchair Transfer Assistance Billy Lift Billy Lift Transfer Assist (Other) 3 x2 Patient Identification Verified (Name & Yes Yes ) Patient Requires Transmission-Based No Precautions Height and Weight Body Mass Index (BMI) 35.5 35.5 BMI Classification Obese Obese Vital Signs Temperature (97.8 F-99.1 F) 98.1 F 96.6 F L Temperature Source Temporal Temporal Pulse Rate (60-100) 74 90 Pulse Location Monitor Monitor Respiratory Rate (12-18) 16 18 Respiratory rate source Observation Observation Oxygen Delivery Method Room Air Blood Pressure (90/60-120/80) 151/87 H 154/105 H Blood Pressure Mean (mm Hg) 108 121 Source Monitor Monitor Position Sitting Blood Pressure Location Left Forearm History Since Last Visit- (Skip if this is Patient's initial visit) Have you changed medications since your No No last visit? Any new allergies or adverse reactions No No Had a fall/change in ADL's that may No No increase risk of falls Signs or symptoms of abuse and/or No No neglect since last visit Have you been in the hospital since your No last visit? Has dressing in place as prescribed Yes Yes Has compression in place as prescribed N/A N/A Has offloadiing in place as prescribed N/A Yes Experienced any changes in pain level or No No management Left Footwear Regular Shoe Right Footwear Regular Shoe Pain Scale: 0-10 Numeric Is Patient Pain Free? Yes Yes - Nurse 1 - General Ulcer Measurement Start: 06/29/23 09:09 Freq: Status: Active Protocol: Activity Type Activity Date Activity User E-sign Co-sign Detail Recorded Client Recorded Date Recorded By Document 06/29/23 09:09 [facility] Desktop 06/29/23 09:11 [facility] Document 07/22/23 13:04 DL Desktop 07/22/23 13:13 DL 06/29/23 07/22/23 09:09 13:04 Wound Center Nurse 1 #5- R ischium -Combined with other wound No -Current Size (cm) - Length 5.6 6 -Current Size (cm) - Width 4 4.4 -Current Size (cm) - Depth 2.8 2.1 -Total Square Cm 22.4 26.4 -Date of Last Picture (Recall this 06/29/23 field) -Photo Taken Yes Yes -Epithelialization Small 1-33% -Tunneling No -Undermining/Tunneling Yes -Undermining/Tunneling Starts (O'clock 12 ) -Undermining/Tunneling Ends (O'clock) 2 -Maximum Distance (cm) 6 -Circular Undermining No -Exudate Amt Large Medium -Exudate Type Serosanguineous Serosanguineous -Wound Margin Distinct, Thickened & Outline Rolled Under Attached -Granulation Amt Large (67-100%) Large (67-100%) -Granulation Quality Red Red -Slough/Fibrin Yes -Necrosis Amt Small (1-33%) None Present (0 %) -Necrotic Tissue Type Adherent Slough -Structure Exposed N/A -Texture (Michelle-wound Skin Appearance) Assessed, Scarring Scarring -Moisture (Michelle-wound Skin Appearance) Assessed Maceration -Color (Michelle-wound Skin Appearance) Assessed No Abnormality -Temperature (Michelle-wound Skin No Abnormality No Abnormality Appearance) (Pt Warm) (Pt Warm) -Tenderness on Palpation (Michelle-wound No No Skin Appearance) -Ulcer Cleansing Soap and Water Soap and Water -Foul Odor after Cleansing No No -Anesthetic Used 4% Lidocaine 4% Lidocaine Solution Solution WC - Nurse 2 - General Ulcer CM Notes Start: 06/29/23 09:09 Freq: Status: Active Protocol: Activity Type Activity Date Activity User E-sign Co-sign Detail Recorded Client Recorded Date Recorded By Document 06/29/23 09:34 JF Laptop 06/29/23 09:35 Document 07/22/23 13:28 MW Desktop 07/22/23 13:36 MW 06/29/23 07/22/23 09:34 13:28 Wound Center Nurse 2 #5- R ischium -Time 09:34 13:29 -Correct Patient Yes Yes -Correct Side, Site, Position Yes Yes -Correct Procedure Yes Yes -Procedure Performed Yes Yes -Type of Procedure Debridement Debridement -Clinical Debridement Muscle / Fascia Muscle / Fascia -Tissue Removed Muscle,Fascia Muscle -Post Debridement (cm) - Length 5.7 5.0 -Post Debridement (cm) - Width 4.3 3.5 -Post Debridement (cm) - Depth 2.1 6.4 -Total Square (Post) (cm) 24.51 17.50 -Area of Debridement (cm) - Length 5.7 5.0 -Area of Debridement (cm) - Width 4.3 3.5 -Total Square (Area) (cm) 24.51 17.50 -Tunneling Yes No -Tunneling Position (O'clock) 12 -Tunneling Distance (cm) 7.8 -Undermining/Tunneling No No -Circular Undermining No No -Wound/Ulcer Outcome Not Healed Not Healed -Ulcer Cleansing Rinsed/ Rinsed/ Irrigated with Irrigated with Saline Saline -Foul Odor after Cleansing No No -Bioengineered Tissue No No -Bleeding Controlled with Pressure Pressure -Treatment Response Procedure Procedure Tolerated Well Tolerated Well -Offloading No No -Pressure Reduction Wheelchair cushion -Debridement - Muscle / Fascia, 1st Yes Yes 20sq cm -Debridement, Muscle/Fascia, ea addt'l 1 20sq cm or part thereof Pain Scale: 0-10 Numeric Is Patient Pain Free? Yes Yes - Nurse 3 - General Ulcer D/C NN Start: 06/29/23 09:09 Freq: Status: Active Protocol: Activity Type Activity Date Activity User E-sign Co-sign Detail Recorded Client Recorded Date Recorded By Document 06/29/23 09:40 KW Desktop 06/29/23 09:41 KW Document 07/22/23 13:41 DL Desktop 07/22/23 13:42 DL 06/29/23 07/22/23 09:40 13:41 Wound Care Center Nurse 3 #5- R ischium -Ulcer Cleansing Rinsed/ Irrigated with Saline -Foul Odor after Cleansing No -Primary Dressing Applied Aquacel AG 4x4 -Other Dressing dakins -Primary Dressing Covered/Secured with Dry Gauze, Secured with Tape -Other Covering ABD -Aquacel AG 4x4 1 Treatment Response Procedure Tolerated Well Pain Scale: 0-10 Numeric Is Patient Pain Free? Yes Yes WC - Visit Discharge Discharge Condition Stable Stable Ambulatory Status Ambulatory Wheelchair Transportation Private Auto Medication Reconcilliation completed & No provided to patient/care provider Clinical Summary of Care Provided Yes Facility Type Home Health Orders Sent Yes Assessment/Plan Assessment/Plan (1) Right ischial pressure sore, stage 4: CODE(S): L89.314 - Pressure ulcer of right buttock, stage 4 (2) Osteomyelitis of right side of pelvis: CODE(S): M86.9 - Osteomyelitis, unspecified (3) Smoker: CODE(S): F17.200 - Nicotine dependence, unspecified, uncomplicated (4) Wheelchair dependent: CODE(S): Z99.3 - Dependence on wheelchair PLAN: Plan Wound care - Silver alginate (preferably name brand such as Silvercel, so it does not fall apart when removing the dressing) into the tunnel and base of ulcer covered with fluffed gauze and toppe by ABD/super absorber 1-2 times per day and as needed. They have home health to help assist with his dressing changes. Operative tissue cultures positive for MSSA and Cutibacterium acnes. Bone cu ltures positive for MSSA and Corynebacterium striatum. He completed Augmentin. He was seen in the ED on 05/02/22 because of a couple falls he experienced since his surgery. CT of his pelvis showed some bony disruption at the level of the inferior pubic ramus suggests a mild osteomyelitis. Prealbumin 13.4 on 04/29/22. Anticipate increased metabolic demands from the infection. Encourage nutritional supplementation with protein to help the healing process. A wound culture was obtained on 07/14/22, which was positive for Staphylococcus aureus and was treated with Augmentin. Wound culture obtained 11/10/22 which was positive for MSSA and he completed the Augmentin. Wound culture obtained 04/06/23 which was positive for Staphylococcus aureus, Corynebacterium striatum, and Enterococcus faecalis. He is being treated with Augmentin, which he just refilled. Patient had a diverting colostomy on 11/21/22. The diversion of the stool has made a noticeable difference in the appearance of the ulcer. Encouraged increased protein intake to help with wound healing. Patient states that he stopped smoking after his wound care visit on 05/19/23. He continues to deny smoking. Stressed importance of not smoking how how it impacts wound healing and potential future surgeries, including flaps. Follow up 2 weeks. From previous note from Dr. Messina: The ulcer is ready for further operative debridement in preparation for closure with a fasciocutaneous flap or a muscle flap since he is wheelchair dependent. The patient has expressed interest in pursuing further surgery with the goal of a closed wound. Patient is a smoker. Encouraged patient to stop smoking as it may have deleterious effects on wound healing. It will affect the healing of the flap and may lead to incisional breakdown and recurrence of the pressure sore. He states he will try to stop smoking. Since this is an elective procedure, we are in no hurry to proceed. So will check a nicotine level prior to any surgery that is scheduled. Also would like to maximize his nutrition which would maximize the healing process. His last Prealbumin from 04/29/22 was 13.4. Ideally would like to see it above 20. At the time of the excision of the pressure sore, will check soft tissue and bone cultures. A positive culture will necessitate antibiotic therapy. This way we will know which antibiotics to use perioperatively. If the culture shows MRSA or Pseudomonas or MDR organisms, I would treat for 6 weeks before proceeding with wound closure. Postoperatively he will be on bedrest and would most likely benefit from a stay at an [facility] during this time. Patient was informed of the risks and complications of the procedure including alternatives to surgery. These were discussed with the patient personally. Patient voices understanding and wishes to proceed. Potential risks and complications included but not inclusive of bleeding, infection, seroma, hematoma, bruising, swelling, prolonged need for drains, loss of sensation to skin, partial or complete loss of skin flap and/or skin graft, wound breakdown, need for wound care, poor scarring, poor aesthetic outcome, intra operative cardiac or neurologic events, DVT, PE, and reaction to anesthesia.
== END 2023-07-28 23:59 | disposition home or self-care (01) ==
LOC: WC 13:00
PROVIDERS: PCP Family Medicine; Referring Provider Physician Assistant; Visit Provider Nurse Practitioner Family
DX: L89.214 Pressure ulcer of right hip, stage 4 (principal); M86.8X8 Other osteomyelitis, other site; F17.200 Nicotine dependence, unspecified, uncomplicated; Z99.3 Dependence on wheelchair
CPT/HCPCS: 11043; 11046

== ENCOUNTER 2023-08-17 13:04 | Outpatient (RCR) | payer BC, MEDICARE, SELFPAY ==
[2023-07-29 00:42] VITALS: BP 154/105; PULSE 90; RESP 18; TEMP 35.9; BMI 35.5
[2023-08-17 13:21] VITALS: BP 152/65; PULSE 94; RESP 16; TEMP 36.9; BMI 35.5
--- NOTE | 2023-08-17 15:01 | PCM.WC.PN ---
History of Present Illness Date of Service: 08/17/23 Chief Complaint: Right ischial pressure sore, Stage IV. History of Wound: This is a 67-year-old white male who presented to the wound healing center with complaints of pressure ulcer to right buttock area with extension to the right ischial bone. This started in October,. Patient's was treating with OTC creams and keeping area clean. The ulcer starting increasing in size and went to the Emergency Department on 02/08/22. CT showed subcutaneous and deep soft tissue involvement and possible early abscess formation. The bone was not addressed. He had a wound culture on 02/28/22. It was positive for E. coli, Staphylococcus aureus, and Clostridium perfringens. He was treated with Augmentin. The patient has very limited mobility as a result of a prior spine injury/surgery. He utilizes a wheelchair at all times. He has not been using his billy lift at home to transfer but has been using a board to slide himself from his bed to chair at home. He sits in his wheelchair almost all day, not really able to change positions. They finally obtained a low air loss overlay to their regular mattress at home. A roho cushion was ordered for his wheelchair. Patient is a smoker. Surgery 04/28/22 - Excision right ischial pressure sore, Stage IV, with partial ostectomy for osteomyelitis. Size of wound 8 x 7 x 4.5 cm. Operative tissue cultures positive for MSSA and Cutibacterium acnes. Bone cultures positive for MSSA and Corynebacterium striatum. He is being treated with Augmentin. Pathology from surgery 04/28/22 showed chronic reparative and reactive change. No evidence of acute osteomyelitis. He had a diverting colostomy placed on 11/21/[address] Romero. Wound culture from 07/14/22 positive for Staphylococcus aureus and he was treated with Augmentin. Wound culture obtained 11/10/22 which was positive for Staphylococcus aureus and he was treated with Augmentin. Wound culture obtained 04/06/23 which was positive for Staphylococcus aureus, Corynebacterium striatum, and Enterococcus faecalis. He is being treated with Augmentin. Prealbumin 13.4 on 04/29/22. Encourage nutritional supplementation with protein to help the healing process. He was seen in the ED on 05/02/22 because of a couple falls he experienced since his surgery. CT of his pelvis showed some bony disruption at the level of the inferior pubic ramus suggests a mild osteomyelitis. Today he denies fever. His appetite is ok. Progress of Wound: Stable. Bone still palpable but covered with granulation tissue. It is still uncomfortable when palpating the bone. Wound bed is nice pink color. He continues to have maceration on the edges of the ulcer. Objective Data Objective Data Vital Signs: Vital Signs Temp Pulse Resp BP 98.5 F 94 16 152/65 H 08/17/23 13:21 08/17/23 13:21 08/17/23 13:21 08/17/23 13:21 Weight: 220 lb Body Mass Index (BMI) 35.5 Charges/Coding Procedures Integumentary [id number]: [id number] Lillian musc/fascia 20 sq cm/< (ICD-10 - L89.314, M86.9, F17.200, Z99.3) Debridement Note Debridement Note Wound debrided: #5 Right ischial area. Laterality: Right Wound Grade/Stage: IV. Type of Debridement: Excisional debridement Anesthesia Used: 5% Lidocaine Gel Depth: Down to and including healthy tissue, in the subcutaneous layer, to muscle and to bone (bone is palpable but not exposed.) Percentage of wound debrided: 100 Instrument Used: 7mm curette Tissue Removed: subcutaneous tissue and muscle. Severity: Fat Layer Exposed (muscle is exposed. bone is palpable but not exposed. Bone was not debrided today.) Amount of bleeding with debridement: Mild Bleeding Controlled with: Pressure and Compression and gauze Patient tolerated procedure: Patient tolerated procedure well Debridement Free Text: Bone palpated but not debrided. He has a tunnel at 12 o'clock that is stable. The base of the ulcer is nice beefy pink color. He continues to have maceration around the edges of the ulcer. Post-Debridement Measurements and Additional Note: Post-Debridement Measurements/Treatment WC - Nurse 1 - General Ulcer Assessment Start: 08/17/23 13:14 Freq: Status: Active Protocol: BRYEXRené Activity Type Activity Date Activity User E-sign Co-sign Detail Recorded Client Recorded Date Recorded By Document 08/17/23 13:21 DL [email or web address] 08/17/23 13:24 DL 08/17/23 13:21 - Today's Visit Information Type of service Follow-up Visit (Physician/PEST CONTROL SERVICE TECHNICIAN ) Arrival Mode Wheelchair Transfer Assistance Billy Lift Patient Identification Verified (Name & Yes ) Patient Requires Transmission-Based No Precautions Safety Precautions NA Height and Weight Body Mass Index (BMI) 35.5 BMI Classification Obese Vital Signs Temperature (97.8 F-99.1 F) 98.5 F Temperature Source Temporal Pulse Rate (60-100) 94 Pulse Location Monitor Respiratory Rate (12-18) 16 Respiratory rate source Observation Blood Pressure (90/60-120/80) 152/65 H Blood Pressure Mean (mm Hg) 94 Source Monitor Position Sitting Blood Pressure Location Left Arm History Since Last Visit- (Skip if this is Patient's initial visit) Have you changed medications since your No last visit? Any new allergies or adverse reactions No Had a fall/change in ADL's that may No increase risk of falls Signs or symptoms of abuse and/or No neglect since last visit Have you been in the hospital since your No last visit? Has dressing in place as prescribed Yes Has compression in place as prescribed N/A Has offloadiing in place as prescribed Yes Experienced any changes in pain level or No management Left Footwear Regular Shoe Right Footwear Regular Shoe Pain Scale: 0-10 Numeric Is Patient Pain Free? Yes - Nurse 1 - General Ulcer Measurement Start: 08/17/23 13:14 Freq: Status: Active Protocol: Activity Type Activity Date Activity User E-sign Co-sign Detail Recorded Client Recorded Date Recorded By Document 08/17/23 13:21 DL [email or web address] 08/17/23 13:24 DL 08/17/23 13:21 Wound Center Nurse 1 #5- R ischium -Combined with other wound No -Current Size (cm) - Length 4.8 -Current Size (cm) - Width 4.3 -Current Size (cm) - Depth 2.0 -Total Square Cm 20.64 -Photo Taken No -Epithelialization None Present -Tunneling Yes -Tunneling Position (O'clock) 12 -Tunneling Distance (cm) 6.0 -Undermining/Tunneling No -Circular Undermining No -Exudate Amt Large -Exudate Type Serosanguineous -Wound Margin Flat & Intact -Granulation Amt Large (67-100%) -Granulation Quality Red -Slough/Fibrin Yes -Necrosis Amt Small (1-33%) -Necrotic Tissue Type Adherent Slough -Structure Exposed N/A -Texture (Michelle-wound Skin Appearance) Assessed, Scarring -Moisture (Michelle-wound Skin Appearance) Assessed,Dry/ Scaly -Color (Michelle-wound Skin Appearance) Assessed -Temperature (Michelle-wound Skin No Abnormality Appearance) (Pt Warm) -Tenderness on Palpation (Michelle-wound No Skin Appearance) -Ulcer Cleansing Wound Cleanser -Foul Odor after Cleansing No -Anesthetic Used 4% Lidocaine Solution Lower Limb Edema Present NA WC - Nurse 2 - General Ulcer CM Notes Start: 08/17/23 13:14 Freq: Status: Active Protocol: Activity Type Activity Date Activity User E-sign Co-sign Detail Recorded Client Recorded Date Recorded By Document 08/17/23 13:36 [place] [id number] 08/17/23 13:40 DS 08/17/23 13:36 Wound Center Nurse 2 #5- R ischium -Time 13:36 -Correct Patient Yes -Correct Side, Site, Position Yes -Correct Procedure Yes -Procedure Performed Yes -Type of Procedure Debridement -Clinical Debridement Muscle / Fascia -Tissue Removed Muscle,Fascia -Post Debridement (cm) - Length 5.5 -Post Debridement (cm) - Width 3.5 -Post Debridement (cm) - Depth 2.2 -Total Square (Post) (cm) 19.25 -Area of Debridement (cm) - Length 5.5 -Area of Debridement (cm) - Width 3.5 -Total Square (Area) (cm) 19.25 -Tunneling Yes -Tunneling Position (O'clock) 12 -Tunneling Distance (cm) 7.4 -Undermining/Tunneling No -Circular Undermining No -Wound/Ulcer Outcome Not Healed -Ulcer Cleansing Rinsed/ Irrigated with Saline -Bleeding Controlled with Pressure -Treatment Response Procedure Tolerated Well -Debridement - Muscle / Fascia, 1st Yes 20sq cm Pain Scale: 0-10 Numeric Is Patient Pain Free? Yes - Nurse 3 - General Ulcer D/C NN Start: 08/17/23 13:14 Freq: Status: Active Protocol: Activity Type Activity Date Activity User E-sign Co-sign Detail Recorded Client Recorded Date Recorded By Document 08/17/23 13:49 [id number] 08/17/23 13:50 JF 08/17/23 13:49 Wound Care Center Nurse 3 #5- R ischium -Ulcer Cleansing Rinsed/ Irrigated with Saline -Foul Odor after Cleansing No -Other Dressing dakin's -Primary Dressing Covered/Secured with Dry Gauze, Secured with Tape Pain Scale: 0-10 Numeric Is Patient Pain Free? Yes WC - Visit Discharge Discharge Condition Stable Ambulatory Status Wheelchair Transportation Private Auto Accompanied by Dasia Medication Reconcilliation completed & Yes provided to patient/care provider Clinical Summary of Care Provided Yes Assessment/Plan Assessment/Plan (1) Right ischial pressure sore, stage 4: CODE(S): L89.314 - Pressure ulcer of right buttock, stage 4 (2) Osteomyelitis of right side of pelvis: CODE(S): M86.9 - Osteomyelitis, unspecified (3) Smoker: CODE(S): F17.200 - Nicotine dependence, unspecified, uncomplicated (4) Wheelchair dependent: CODE(S): Z99.3 - Dependence on wheelchair PLAN: Plan Wound care - Dakins 0.25% moistened gauze topped by ABD/ 1-2 times per day and as needed. They have home health to help assist with his dressing changes. Operative tissue cultures positive for MSSA and Cutibacterium acnes. Bone cultures positive for MSSA and Corynebacterium striatum. He completed Augmentin. He was seen in the ED on 05/02/22 because of a couple falls he experienced since his surgery. CT of his pelvis showed some bony disruption at the level of the inferior pubic ramus suggests a mild osteomyelitis. Prealbumin 13.4 on 04/29/22. Anticipate increased metabolic demands from the infection. Encourage nutritional supplementation with protein to help the healing process. A wound culture was obtained on 07/14/22, which was positive for Staphylococcus aureus and was treated with Augmentin. Wound culture obtained 11/10/22 which was positive for MSSA and he completed the Augmentin. Wound culture obtained 04/06/23 which was positive for Staphylococcus aureus, Corynebacterium striatum, and Enterococcus faecalis. He is being treated with Augmentin, which he just refilled. Patient had a diverting colostomy on 11/21/22. The diversion of the stool has made a noticeable difference in the appearance of the ulcer. Encouraged increased protein intake to help with wound healing. Patient states that he stopped smoking after his wound care visit on 05/19/23. He continues to deny smoking. Stressed importance of not smoking how how it impacts wound healing and potential future surgeries, including flaps. He is scheduled for operative debridement 08/26/[address] Messina. Follow up 2-3 weeks.
--- NOTE | 2023-08-17 15:44 | PCM.WC.PN ---
History of Present Illness Date of Service: 08/17/23 Chief Complaint: Right ischial pressure sore, Stage IV. History of Wound: This is a 67-year-old white male who presented to the wound healing center with complaints of pressure ulcer to right buttock area with extension to the right ischial bone. This started in October,. Patient's was treating with OTC creams and keeping area clean. The ulcer starting increasing in size and went to the Emergency Department on 02/08/22. CT showed subcutaneous and deep soft tissue involvement and possible early abscess formation. The bone was not addressed. He had a wound culture on 02/28/22. It was positive for E. coli, Staphylococcus aureus, and Clostridium perfringens. He was treated with Augmentin. The patient has very limited mobility as a result of a prior spine injury/surgery. He utilizes a wheelchair at all times. He has not been using his billy lift at home to transfer but has been using a board to slide himself from his bed to chair at home. He sits in his wheelchair almost all day, not really able to change positions. They finally obtained a low air loss overlay to their regular mattress at home. A roho cushion was ordered for his wheelchair. Patient is a smoker. Surgery 04/28/22 - Excision right ischial pressure sore, Stage IV, with partial ostectomy for osteomyelitis. Size of wound 8 x 7 x 4.5 cm. Operative tissue cultures positive for MSSA and Cutibacterium acnes. Bone cultures positive for MSSA and Corynebacterium striatum. He is being treated with Augmentin. Pathology from surgery 04/28/22 showed chronic reparative and reactive change. No evidence of acute osteomyelitis. He had a diverting colostomy placed on 11/21/[address] Romero. Wound culture from 07/14/22 positive for Staphylococcus aureus and he was treated with Augmentin. Wound culture obtained 11/10/22 which was positive for Staphylococcus aureus and he was treated with Augmentin. Wound culture obtained 04/06/23 which was positive for Staphylococcus aureus, Corynebacterium striatum, and Enterococcus faecalis. He is being treated with Augmentin. Prealbumin 13.4 on 04/29/22. Encourage nutritional supplementation with protein to help the healing process. He was seen in the ED on 05/02/22 because of a couple falls he experienced since his surgery. CT of his pelvis showed some bony disruption at the level of the inferior pubic ramus suggests a mild osteomyelitis. Today he denies fever. His appetite is ok. Objective Data Objective Data Vital Signs: Vital Signs Temp Pulse Resp BP 98.5 F 94 16 152/65 H 08/17/23 13:21 08/17/23 13:21 08/17/23 13:21 08/17/23 13:21 Weight: 220 lb Body Mass Index (BMI) 35.5 Debridement Note Debridement Note Post-Debridement Measurements and Additional Note: Post-Debridement Measurements/Treatment WC - Nurse 1 - General Ulcer Assessment Start: 08/17/23 13:14 Freq: Status: Active Protocol: KIRA Activity Type Activity Date Activity User E-sign Co-sign Detail Recorded Client Recorded Date Recorded By Document 08/17/23 13:21 DL [email or web address] 08/17/23 13:24 DL 08/17/23 13:21 WC - Today's Visit Information Type of service Follow-up Visit (Physician/CURTAIN STRETCHER ) Arrival Mode Wheelchair Transfer Assistance Billy Lift Patient Identification Verified (Name & Yes ) Patient Requires Transmission-Based No Precautions Safety Precautions NA Height and Weight Body Mass Index (BMI) 35.5 BMI Classification Obese Vital Signs Temperature (97.8 F-99.1 F) 98.5 F Temperature Source Temporal Pulse Rate (60-100) 94 Pulse Location Monitor Respiratory Rate (12-18) 16 Respiratory rate source Observation Blood Pressure (90/60-120/80) 152/65 H Blood Pressure Mean (mm Hg) 94 Source Monitor Position Sitting Blood Pressure Location Left Arm History Since Last Visit- (Skip if this is Patient's initial visit) Have you changed medications since your No last visit? Any new allergies or adverse reactions No Had a fall/change in ADL's that may No increase risk of falls Signs or symptoms of abuse and/or No neglect since last visit Have you been in the hospital since your No last visit? Has dressing in place as prescribed Yes Has compression in place as prescribed N/A Has offloadiing in place as prescribed Yes Experienced any changes in pain level or No management Left Footwear Regular Shoe Right Footwear Regular Shoe Pain Scale: 0-10 Numeric Is Patient Pain Free? Yes WC - Nurse 1 - General Ulcer Measurement Start: 08/17/23 13:14 Freq: Status: Active Protocol: Activity Type Activity Date Activity User E-sign Co-sign Detail Recorded Client Recorded Date Recorded By Document 08/17/23 13:21 DL [email or web address] 08/17/23 13:24 DL 08/17/23 13:21 Wound Center Nurse 1 #5- R ischium -Combined with other wound No -Current Size (cm) - Length 4.8 -Current Size (cm) - Width 4.3 -Current Size (cm) - Depth 2.0 -Total Square Cm 20.64 -Photo Taken No -Epithelialization None Present -Tunneling Yes -Tunneling Position (O'clock) 12 -Tunneling Distance (cm) 6.0 -Undermining/Tunneling No -Circular Undermining No -Exudate Amt Large -Exudate Type Serosanguineous -Wound Margin Flat & Intact -Granulation Amt Large (67-100%) -Granulation Quality Red -Slough/Fibrin Yes -Necrosis Amt Small (1-33%) -Necrotic Tissue Type Adherent Slough -Structure Exposed N/A -Texture (Michelle-wound Skin Appearance) Assessed, Scarring -Moisture (Michelle-wound Skin Appearance) Assessed,Dry/ Scaly -Color (Michelle-wound Skin Appearance) Assessed -Temperature (Michelle-wound Skin No Abnormality Appearance) (Pt Warm) -Tenderness on Palpation (Michelle-wound No Skin Appearance) -Ulcer Cleansing Wound Cleanser -Foul Odor after Cleansing No -Anesthetic Used 4% Lidocaine Solution Lower Limb Edema Present NA WC - Nurse 2 - General Ulcer CM Notes Start: 08/17/23 13:14 Freq: Status: Active Protocol: Activity Type Activity Date Activity User E-sign Co-sign Detail Recorded Client Recorded Date Recorded By Document 08/17/23 13:36 DS [id number] 08/17/23 13:40 DS 08/17/23 13:36 Wound Center Nurse 2 #5- R ischium -Time 13:36 -Correct Patient Yes -Correct Side, Site, Position Yes -Correct Procedure Yes -Procedure Performed Yes -Type of Procedure Debridement -Clinical Debridement Muscle / Fascia -Tissue Removed Muscle,Fascia -Post Debridement (cm) - Length 5.5 -Post Debridement (cm) - Width 3.5 -Post Debridement (cm) - Depth 2.2 -Total Square (Post) (cm) 19.25 -Area of Debridement (cm) - Length 5.5 -Area of Debridement (cm) - Width 3.5 -Total Square (Area) (cm) 19.25 -Tunneling Yes -Tunneling Position (O'clock) 12 -Tunneling Distance (cm) 7.4 -Undermining/Tunneling No -Circular Undermining No -Wound/Ulcer Outcome Not Healed -Ulcer Cleansing Rinsed/ Irrigated with Saline -Bleeding Controlled with Pressure -Treatment Response Procedure Tolerated Well -Debridement - Muscle / Fascia, 1st Yes 20sq cm Pain Scale: 0-10 Numeric Is Patient Pain Free? Yes - Nurse 3 - General Ulcer D/C NN Start: 08/17/23 13:14 Freq: Status: Active Protocol: Activity Type Activity Date Activity User E-sign Co-sign Detail Recorded Client Recorded Date Recorded By Document 08/17/23 13:49 [id number] 08/17/23 13:50 ESTER 08/17/23 13:49 Wound Care Center Nurse 3 #5- R ischium -Ulcer Cleansing Rinsed/ Irrigated with Saline -Foul Odor after Cleansing No -Other Dressing dakin's -Primary Dressing Covered/Secured with Dry Gauze, Secured with Tape Pain Scale: 0-10 Numeric Is Patient Pain Free? Yes WC - Visit Discharge Discharge Condition Stable Ambulatory Status Wheelchair Transportation Private Auto Accompanied by Dasia Medication Reconcilliation completed & Yes provided to patient/care provider Clinical Summary of Care Provided Yes
== END 2023-08-28 23:59 | disposition home or self-care (01) ==
LOC: WC 13:04
PROVIDERS: PCP Family Medicine; Referring Provider Physician Assistant; Visit Provider Nurse Practitioner Family
DX: L89.214 Pressure ulcer of right hip, stage 4 (principal); F17.200 Nicotine dependence, unspecified, uncomplicated; Z99.3 Dependence on wheelchair
CPT/HCPCS: 11043

== ENCOUNTER 2023-08-26 13:56 | Observation (INO) | payer BC, MEDICARE, SELFPAY ==
[2023-08-17 15:53] LABS: Absolute Lymphocyte Count 2.18 X10^3/uL (0.83-4.51); Absolute Neutrophil Count 5.8 X10^3/uL (2.0-7.7); Basophil# 0.06 X10^3/uL; Basophil% 0.7 % (0-1); Eosinophil# 0.14 X10^3/uL; Eosinophils% 1.5 % (0-5); Hematocrit 41.9 % (40-54); Hemoglobin 13.5 g/dL (13.0-16.5); Lymphocyte # 2.18 X10^3/ul (0.83-4.51); Lymphocyte % 23.9 % (19-41); Mean Corp Hgb Conc 32.2 g/dL (32-36); Mean Corpuscular Hgb 28.7 pg (27.0-32.0); Mean Corpuscular Volume 89.1 fL (80-94); Mean Platelet Vol. 9.6 fl (6.2-12.0); Monocyte# 0.88 X10^3/uL; Monocyte% 9.6 % (0-10); NRBC Flagged by Analyzer 0 % (0-5); Neutrophil % 63.5 % (47-70); Platelet Count 407 K/mm3 (150-450); RBC Distribution Width CV 16.1 % (11.6-14.6); RBC Distribution Width SD 52.7 fl (35.1-43.9); White Blood Count 9.1 K/mm3 (4.4-11.0)
[2023-08-17 16:17] LABS: Anion Gap 3 (5-15); BUN 11 mg/dL (7-18); Calcium,Total 9.2 mg/dL (8.5-10.1); Chloride 108 mmol/L (98-107); Creatinine, Serum 0.65 mg/dL (0.70-1.30); EST Glomerular Filtration Rate 131 mL/min (>60); Est Glom Filt Rate - Afr Amer 159 mL/min (>60); Glucose 83 mg/dL (74-106); Sodium Level 138 mmol/L (136-145); Thyroid Stim Hormone (TSH) 4.01 uIU/mL (0.358-3.74)
[2023-08-26] VITALS (13 sets, daily range): BP systolic 88–133; BP diastolic 51–82; PULSE 63–82; RESP 14–18; TEMP 36.1–36.8; O2SAT 91–99; BMI 26.6
[2023-08-26] MEDS: Lactated Ringers 1,000 ML 15 ML IV (11:01)
--- NOTE | 2023-08-26 11:38 | PCM.PRE.AN2 ---
[facility] Medical History (Updated 08/14/23 @ 10:14 by Dionisio Centeno) Paraplegic spinal paralysis History of pressure ulcer Wears glasses Thyroid disease Arthritis Uses wheelchair High cholesterol Gastric reflux COPD (chronic obstructive pulmonary disease) Hx of fracture of arm Hx of head injury Bedridden Smoker Right ischial pressure sore, stage 4 Home Medications ?Medication ?Instructions ?Recorded ?Last Taken ?Type baclofen 10 mg tablet 15 mg PO TID spasm 12/17/17 04/28/22 06:30 History levothyroxine 125 mcg tablet 125 mcg PO DAILY 12/17/17 08/26/23 06:00 History tamsulosin 0.4 mg capsule 0.4 mg PO BID 12/17/17 08/26/23 06:00 History icosapent ethyl 1 gram capsule 2 g PO BID cholesterol 02/08/22 04/27/22 22:00 History (Vascepa) acetaminophen 650 mg 1,300 mg PO Q8H PRN Pain 04/25/22 Unknown History tablet,extended release esomeprazole magnesium 40 mg 40 mg PO DAILY 06/16/22 08/26/23 06:00 History capsule,delayed release (Nexium) sodium hypochlorite 0.25 % See Rx Instructions .Route 05/26/23 Unknown Rx solution (HySept) .COMPLEX #473 mL Allergy/AdvReac Type Severity Reaction Status Date / Time Environmental Allergies: Allergy NEEDS Verified 08/26/23 10:25 Uncoded (dust) FOLLOW-UP house dust Allergy Other Verified 08/26/23 10:25 pollen extracts Allergy NEEDS Verified 08/26/23 10:25 FOLLOW-UP Surgical History S/P colostomy History of back surgery Hx of neck surgery Hx of spinal surgery Social History Smoking Status: Former smoker Pre-Assessment* Diagnosis/Proposed Procedure Planned Operative Procedure(s): EXCSION RIGHT ISCHIAL PRESSURE SORE WITH PARTIAL OSECTOMY FOR OSTEOMYELITIS Anesthesia History Anesthesia History - management services technician: Anesthesia History - management services technician Hx Hospitalization Yes: FOR OSTOMY 08/14/23 10:05 Any Problems With Anesthesia No 08/14/23 10:05 Cholinesterase deficiency No 08/14/23 10:05 You/Your Family Experience No 08/14/23 10:05 fever (hyperthermia) with Relationship Recent Exposure to Contagious No 08/26/23 10:29 Disease Does patient have nerve No 08/14/23 10:05 stimulator Patient instructed to have device shut off --Does patient have Pacemaker No 08/26/23 10:29 or ICD? When Was Last Pacemaker Check Airway/Respiratory Assessment Mallampati Score: II Teeth Condition: Intact Respiratory Assessment - management services technician: Respiratory Tract Infection Hx - management services technician Hx Respiratory Tract Infection Yes: MAY 2023 08/14/23 10:05 STOP Sleep Apnea STOP Sleep Apnea - management services technician: STOP Sleep Apnea - management services technician Hx Hypertension No 08/14/23 10:05 Hx Sleep Apnea No 08/14/23 10:05 CPAP BIPAP Do you snore loudly (louder No 08/14/23 10:05 than talking or can be heard Do you often feel tired/ No 08/14/23 10:05 fatigued/ sleepy during daytime? Has anyone observed you stop No 08/14/23 10:05 breathing during sleep? STOP Results Negative 08/14/23 10:05 Tobacco Use History Tobacco Use History - management services technician: Tobacco Use Histor - management services technician Tobacco Use Smoking Status Former smoker 08/14/23 10:05 Hx Tobacco Use Yes 08/14/23 10:05 Years Smoking Packs Smoked per Day Smoking Cessation Date was Yes - quit smoking within 15 08/14/23 10:05 within the last 15 years years Hx Smoking Cessation Date Hx Smoking Cessation Counseling /Reproduction History /Reproductive History - management services technician: /Reproductive Hx- management services technician Hx Now Gestational Age (in weeks): EDC: Hx Hx Para Hx Section SAB Hematologic Medial History Hematologic Hx - management services technician: Hematolgic Medical Hx - documentation billing clerk Hx of Blood Transfusion No 08/14/23 10:05 Hx of Transfusion in last 3 No 08/14/23 10:05 Months Date of Last Transfusion (if within last 3 months) Ever experience any problems No 08/14/23 10:05 with transfusion(s)? Specify any problems Hx of Preganancy in last 3 N/A 08/14/23 10:05 Months Nurse Filling Out Transfusion [email or web address] 08/14/23 10:05 & Questions: Date: 08/14/23 08/14/23 10:05 Time: 10:10 08/14/23 10:05 Patient unable to answer at this time (ie. confused, unrespo PONV PONV - management services technician: PONV - management services technician Female No 08/14/23 10:05 HX of Motion Sickness No 08/14/23 10:05 HX of N/V After Surgery No 08/14/23 10:05 Non-Smoker No 08/14/23 10:05 Duration of Surgery greater Yes 08/14/23 10:05 than 60 minutes Number of Risk Factors 1 08/14/23 10:05 PONV Score Low Risk 08/14/23 10:05 ASA Classification ASA Classification: 3 Pertinent Findings EKG Pertinent Findings:: nsr 10/17/22 Assessment & Plan Anesthesia* Anesthesia Assessment Anesthesia Assessment: Discussed sedation and/or anesthesia options, risks, benefits, and alternatives with patient/parents/legal guardian. Questions invited. The patient/parents/legal guardian/POA seems to understand and agrees to proceed with anesthesia plan. Reviewed the physical assessment, medical history, allergy history and patient home medications list prior to surgery/procedure/anesthetic and documented any changes. Performed airway and anesthesia risk assessments. Procedural Plan (POC = Plan of care) Procedural Plan:: Proceed w/ POC Anesthesia Type Anesthesia Type: General Anesthesia focused assessment* Height & Weight: Anesthesia: Height & Weight Height 1.68 m 08/26/23 10:29 Weight: 74.843 kg 08/26/23 10:29 Body Mass Index (BMI) 26.6 08/26/23 10:29 Temperature: 97.2 F Pulse Rate: 80 Blood Pressure: 108/65 Respiratory Rate: 16 Pulse Ox: 99 Active Medications: Current Medications Generic Name Dose Route Start Last Admin Trade Name Freq PRN Reason Stop Dose Admin Ampicillin Sodium/Sulbactam 112 mls @ 150 mls/hr 08/26/23 11:50 Sodium 3 gm/ Sodium Chloride IV 08/26/23 12:34 PREOP ONE Lactated Ringer's 1,000 mls @ 15 mls/hr 08/26/23 10:00 08/26/23 11:01 IV 15 mls/hr .Q48H BLAIR Administration Review of Systems (Anesthesia) ROS Narrative System reviewed and no additional complaints, except as documented. Focused labs Anesthesia Preop lab: CBC WBC 9.1 K/mm3 (4.4-11.0) 08/17/23 14:22 RBC 4.70 M/mm3 (4.6-6.2) 08/17/23 14:22 Hgb 13.5 g/dL (13.0-16.5) 08/17/23 14:22 Hct 41.9 % (40-54) 08/17/23 14:22 Plt Count 407 K/mm3 (150-450) 08/17/23 14:22 CHEMISTRY Potassium 4.0 mmol/L (3.5-5.1) 08/17/23 14:22 Sodium 138 mmol/L (136-145) 08/17/23 14:22 BUN 11 mg/dL (7-18) 08/17/23 14:22 Creatinine 0.65 mg/dL (0.70-1.30) L 08/17/23 14:22 Glucose 83 mg/dL (74-106) 08/17/23 14:22 TSH 4.01 uIU/mL (0.358-3.74) H 08/17/23 14:22 COAG
--- NOTE | 2023-08-26 11:50 | PRES_PTH ---
PATIENT: JORGE LINDSEY LOC: MS3 U#:[id number] AGE/SX: 68/M ROOM: [facility] [place] RE08/26/[address]: Dr. Popeye Messina MD : 1955 BED: 1 DIS: 08/27/2023 SPEC #: [id number] RECD: 08/26/23 18:04 STATUS: DERRELL RELatasha #: [id number] ERON: 08/26/23 11:[address]: Popeye Messina DEPT: SURGICAL PATHOLOGY RECD BY: Lisa Tavarez ENTERED: 08/27/23 12:06 SP TYPE: PRESS SORE OTHR DR: Dr. Brian Zimmerman MD Tissues: A - Ischium, NOS B - Ischium, NOS Procedures: Decalcification bone/plaque Surgery Specimen Level IV HEADER OPERATION: Excision right ischial pressure sore with partial ostectomy PRE-OP DIAGNOSIS: Right ischial pressure sore, stage 4, osteomyelitis of right side of pelvis TISSUE SUBMITTED: A- Right ischial pressure sore soft tissue, B- Right ischial bone MICROSCOPIC DIAGNOSIS A. Right ischial pressure sore soft tissue, excision: Focal ulceration, acute and chronic inflammation and granulation tissue reaction. B. Right ischial bone, partial ostectomy: Fragments of bone with chronic inflammation and reactive changes. Negative for acute osteomyelitis. / 08/31/2023 MICROSCOPIC DESCRIPTION Slides are reviewed. GROSS DESCRIPTION A. Received in fixative is one container labeled with the patient's name and designated Right ischial pressure soft tissue. The specimen consists of three irregular fragments of bonilla-yellow soft tissue ranging in size from 2.0 to 6.5cm. The largest fragment consists of a ring with a central hole in reamed by light-bonilla unremarkable skin. Serial sections do not reveal mass lesions. Mortgage Loan Officer Originator sections are submitted in two cassettes. B. Received in fixative is one container labeled with the patient's name and designated Right ischial bone. The specimen consists of four dark-bonilla bone fragments ranging in size from 1.2 to 2.0cm. The specimen is totally submitted in one cassette after decalcification. /mr 08/27/2023 TC:2 CPT:87192g9,16537
[2023-08-26] MEDS: Ampicillin/Sulbactam 3 GM in 0.9% Normal Saline (100mL MB+) 100 ML IV ×3 (12:24→22:50)
[2023-08-26] MEDS: Lidocaine 1% /Epi 1:100 (20ml) 20 ML Vial (13:04)
--- NOTE | 2023-08-26 13:54 | PCM.OPRPT ---
Problems Associated Problem List Diagnoses (1) Right ischial pressure sore, stage 4: (2) Osteomyelitis of right side of pelvis: (3) Paraplegic spinal paralysis: (4) Bedridden: (5) Colostomy in place: (6) Smoker: Report of Operation Date of Procedure: 08/26/23 Pre-Operative Diagnosis: 1. Recurrent right ischial pressure sore, Stage IV. 2. Osteomyelitis right side of pelvis. 3. Paraplegic spinal paryalysis. 4. Bedridden. 5. Colostomy in place. 6. Smoker. Post-Operative Diagnosis: Same. Surgery/Procedure Performed:: Excision recurrent right ischial pressure sore, Stage IV, with partial ostectomy for osteomyelitis. Description of Surgical Findings:: This is a 68 year-old white male who presented to the wound healing center with complaints of pressure ulcer to right buttock area with extension to the right ischial bone. This started in October,. Patient's was treating with OTC creams and keeping area clean. The ulcer starting increasing in size and went to the Emergency Department on 02/08/22. CT showed subcutaneous and deep soft tissue involvement and possible early abscess formation. The bone was not addressed. He had a wound culture on 02/28/22. It was positive for E. coli, Staphylococcus aureus, and Clostridium perfringens. He was treated with Augmentin. The patient has very limited mobility as a result of a prior spine injury/surgery. He utilizes a wheelchair at all times. He has not been using his lm lift at home to transfer but has been using a board to slide himself from his bed to chair at home. He sits in his wheelchair almost all day, not really able to change positions. They finally obtained a low air loss overlay to their regular mattress at home. A roho cushion was ordered for his wheelchair. Patient is a smoker. Surgery 04/28/22 - Excision right ischial pressure sore, Stage IV, with partial ostectomy for osteomyelitis. Size of wound 8 x 7 x 4.5 cm. Operative tissue cultures positive for MSSA and Cutibacterium acnes. Bone cultures positive for MSSA and Corynebacterium striatum. He was treated with Augmentin. Pathology from surgery 04/28/22 showed chronic reparative and reactive change. No evidence of acute osteomyelitis. He had a diverting colostomy placed on 11/21/[address] Romero. Wound culture from 07/14/22 positive for Staphylococcus aureus and he was treated with Augmentin. Wound culture obtained 11/10/22 which was positive for Staphylococcus aureus and he was treated with Augmentin. Wound culture obtained 04/06/23 which was positive for Staphylococcus aureus, Corynebacterium striatum, and Enterococcus faecalis. He is being treated with Augmentin. Prealbumin 13.4 on 04/29/22. Encourage nutritional supplementation with protein to help the healing process. He was seen in the ED on 05/02/22 because of a couple falls he experienced since his surgery. CT of his pelvis showed some bony disruption at the level of the inferior pubic ramus suggests a mild osteomyelitis. He presents today for further excision of his recurrent right ischial pressure sore and partial ostectomy for osteomyelitis. Patient is interested in wound closure with a myocutaneous flap. He was told the infection needs to be treated and under control, and his nutrition needs to be maximized. And after surgery he would be on complete bedrest for 6 weeks. He voiced understanding. Potential risks and complications included but not inclusive of bleeding, infection seroma, hematoma, bruising, swelling, prolonged need for drains, loss of sensation to skin, partial or complete loss of skin flap and/or nipple graft, wound breakdown, need for wound care, poor scarring, poor aesthetic outcome, intra operative cardiac or neurologic events, DVT, PE, and reaction to anesthesia. Potential risks and complications included but not inclusive of bleeding, infection, seroma, hematoma, bruising, swelling, poor scarring, poor aesthetic outcome, intra operative cardiac or neurologic events, DVT, PE, and reaction to anesthesia. Encouraged patient to stop smoking as it may have deleterious effects on wound healing. Size of right ischial ulcer defect - 6 x 6 x 5 cm. Surgeon: Popeye Messina MD radial drill press operator for plastic: None Anesthesiologist: Andi Alva MD and Endy Farr CRNA Specimen's removed: 1. Recurrent right ischial pressure sore, soft tissue, to Pathology and Microbiology. 2. Recurrent right ischial pressure sore, bone, to Pathology and Microbiology. Drains: None. Estimated Blood Loss (mL): 150. Description of Procedure: Patient was taken to OR in supine position and was placed under general anesthesia. He was then placed in the prone position. The right ischial and buttock area was prepped and draped in the usual fashion. SCD's were placed for DVT prophylaxis. Perioperative antibiotics were given intravenously. Using xylocaine with epinephrine, the right ischial pressure sore was infiltrated. After waiting 5 minutes for the anesthetic to take effect, I made an incision around the pressure sore into the subcutaneous tissue and through the muscle to the ischial bone. No pus was seen. The soft tissue including muscle and some fat necrosis was excised. Using an osteotome and a mallet, I proceeded with a partial ostectomy of the ischial bone. I took several business development representative pieces of bone at the base of the pressure sore. A rasp was used to help smooth out the bony edges. Hemostasis was obtained with electrocautery. The wound was irrigated with saline. The dimensions of the wound after excision of the right ischial pressure sore with partial ostectomy for osteomyelitis was 6 x 6 x 5 cm or 36 cm2. Half the soft tissue and half the bone was sent to Pathology for analysis to rule out carcinoma and to evaluate for osteomyelitis. Half the soft tissue and half the bone was sent to Microbiology for culture. A positive culture will necessitate antibiotic therapy. The wound was dressed with Mepitel nonadherent dressing followed by Kerlix gauze and Betadine. This was followed with a dry Kerlix gauze and ABD pads compression dressing. Patient tolerated the procedure well and was sent to PACU in satisfactory condition. Patient will be sent upstairs for continued postop care. Will try and place the VAC tomorrow. If it is difficult to maintain a seal, then will continue with Dakin's dressing changes daily. After discharge will followup at the Wound Center. Grafts/Implants Used: None. Procedure Start Time: 13:04 Procedure Stop Time: 14:00 Complications None. Admit VTE Documentation VTE Present on Admission: No VTE Mechan Device Prophylaxis: SCD's VTE Pharm Prophylaxis ordered?: Yes Addendum Addendum: Surgery Charges CPT - 87485 ICD-10 - L89.314, M86.9, G82.20, Z74.01, Z93.3, F17.200
--- NOTE | 2023-08-26 14:08 | PCM.POST.ANE ---
Anesthesia: Postop Eval I Current Vital Signs Temperature: 97 F Pulse Rate: 70 Blood Pressure: 90/51 Respiratory Rate: 14 Pulse Ox: 96 Oxygen Delivery Method: Room Air Assessment Airway patent: Yes Spontaneous unlabored respirations: Yes Mental status: Awake and Calm nausea: No Vomiting: No Fluid Hydration Crystalloid volume administer (ml): 500 Total IV fluid infused: 500 Progress Note Anesthesia document: Postop Eval 1 completed: Yes
--- NOTE | 2023-08-26 14:26 | POSTOPAN2_ITS ---
Anesthesia Postop Eval I Sum Postop Eval Completion status Anesthesia document: Postop Eval 1 completed: Yes Anesthesia Postop Eval I Summary Anesthesia Postop Eval I Summary: Anesthesia Postop Eval I: Assessment Summary Airway patent Yes 08/26/23 14:09 BROADCAST MAINTENANCE [email or web address] Spontaneous unlabored Yes 08/26/23 14:09 BROADCAST MAINTENANCE [email or web address] respirations Mental status Awake,Calm 08/26/23 14:09 BROADCAST MAINTENANCE [email or web address] nausea No 08/26/23 14:09 BROADCAST MAINTENANCE TECHNICIAN.[email or web address] Vomiting No 08/26/23 14:09 BROADCAST MAINTENANCE TECHNICIAN.[email or web address] Anesthesia Postop Eval I: Fluid Summary Crystalloid volume administer 500 08/26/23 14:09 BROADCAST MAINTENANCE TECHNICIAN.[email or web address] (ml) Colloids volume administered ( ml) Blood Product volume administered (ml) Total IV fluid infused 500 08/26/23 14:09 BROADCAST MAINTENANCE TECHNICIAN.[email or web address] Anesthesia Postop Eval I: Summary Notes Anesthesia Complication Anesthesia Complication Comment: Post-operative progress note Anesthesia: Postop Eval II Evaluation Mental status: Awake Pain Level: 0 nausea: No Vomiting: No
--- NOTE | 2023-08-26 14:26 | PCM.POSTANE2 ---
Anesthesia Postop Eval I Sum Postop Eval Completion status Anesthesia document: Postop Eval 1 completed: Yes Anesthesia Postop Eval I Summary Anesthesia Postop Eval I Summary: Anesthesia Postop Eval I: Assessment Summary Airway patent Yes 08/26/23 14:09 PYTHON WEB [email or web address].[email or web address] Spontaneous unlabored Yes 08/26/23 14:09 PYTHON WEB [email or web address].[email or web address] respirations Mental status Awake,Calm 08/26/23 14:09 PYTHON WEB [email or web address].[email or web address] nausea No 08/26/23 14:09 PYTHON WEB [email or web address].[email or web address] Vomiting No 08/26/23 14:09 PYTHON WEB [email or web address].[email or web address] Anesthesia Postop Eval I: Fluid Summary Crystalloid volume administer 500 08/26/23 14:09 PYTHON WEB [email or web address].[email or web address] (ml) Colloids volume administered ( ml) Blood Product volume administered (ml) Total IV fluid infused 500 08/26/23 14:09 PYTHON WEB [email or web address].[email or web address] Anesthesia Postop Eval I: Summary Notes Anesthesia Complication Anesthesia Complication Comment: Post-operative progress note Anesthesia: Postop Eval II Evaluation Mental status: Awake Pain Level: 0 nausea: No Vomiting: No
[2023-08-26] MEDS: Lactated Ringers 1,000 ML 60 ML IV (16:24)
[2023-08-26] MEDS: Baclofen 10 MG Tablet 15 MG PO ×2 (17:05→22:48)
--- NOTE | 2023-08-26 17:40 | NURSING ---
Call placed to pharmacy regarding IV compatibility b/t LR and Unasyn. Pharmacist Corrina gave the ok to hang Unasyn with LR.
[2023-08-26] MEDS: oxyCODONE 5 MG Tablet 10 MG PO (20:20)
[2023-08-26] MEDS: Docusate Sodium 100 MG Capsule PO (20:21)
[2023-08-26] MEDS: Tamsulosin HCl 0.4 MG Capsule PO (20:21)
[2023-08-26] MEDS: Acetaminophen 500 MG Tablet PO (20:22)
[2023-08-27 02:40] VITALS: BP 110/49; PULSE 68; RESP 18; TEMP 36.4; O2SAT 97
[2023-08-27 03:30] VITALS: O2SAT 60
[2023-08-27 03:33] VITALS: O2SAT 97
[2023-08-27] MEDS: Baclofen 10 MG Tablet 15 MG PO ×2 (04:36→14:23)
[2023-08-27] MEDS: Acetaminophen 500 MG Tablet PO (04:36)
[2023-08-27] MEDS: Levothyroxine 125 MCG Tablet PO (04:37)
[2023-08-27] MEDS: Ampicillin/Sulbactam 3 GM in 0.9% Normal Saline (100mL MB+) 100 ML IV ×2 (04:41→11:53)
[2023-08-27 06:32] VITALS: BP 106/62; PULSE 66; RESP 18; TEMP 36.5; O2SAT 99
[2023-08-27 06:59] LABS: Hemoglobin 13.1 g/dL (13.0-16.5); Mean Corpuscular Volume 90.7 fL (80-94); Mean Platelet Vol. 9.5 fl (6.2-12.0); Platelet Count 343 K/mm3 (150-450); RBC Distribution Width CV 15.7 % (11.6-14.6); RBC Distribution Width SD 52.2 fl (35.1-43.9); Red Blood Count 4.52 M/mm3 (4.6-6.2); White Blood Count 9.7 K/mm3 (4.4-11.0)
[2023-08-27 09:20] VITALS: BP 93/44; PULSE 67; RESP 14; TEMP 36.3; O2SAT 98
[2023-08-27] MEDS: Docusate Sodium 100 MG Capsule PO (09:23)
[2023-08-27] MEDS: Pantoprazole Sodium 40 MG Tablet PO (09:24)
[2023-08-27] MEDS: Enoxaparin 40 MG/0.4 ML Syringe SC (09:24)
[2023-08-27] MEDS: Tamsulosin HCl 0.4 MG Capsule PO (09:24)
--- NOTE | 2023-08-27 09:34 | WOUNDNOTE ---
Pt is currently refusing the wound VAC. pt states the VAC does not work for him. states the seal is always broken and states he is home alone often so there is no one there to assist with attempting to seal. states he and his were planning on using the Dakins moistened gauze. has been assisting with this previously. notified Siddharth. awaiting to hear back.
--- NOTE | 2023-08-27 10:30 | CASEMGMT ---
Addendum entered by Christie Bansal 08/27/23 11:06: JAZZY PAVON Called and left message with [facility] to resume SN services upon DC. Addendum entered by Christie Bansal 08/27/23 10:59: Pt stated he has a pressure reducing mattress. Original Note: JAZZY PAVON Assessment: Face to Face with pt for initial transition planning/care coordination assessment. JAZZY PAVON introduced self and role at [facility], pt voices understanding and consents to assessment. Pt lying in bed in no distress with NC on. Pt arrived at end of assessment. Pt is A&O x4 and answers all questions appropriately at this time. Care providers, pharmacy, and demographics verified/updated. Admitting Dx: Excision R ischial pressure sore PCP: Erasmo Specialists: Wound center - Kemi, Urologist - does not remember doctors name. Preferred Pharmacy: [facility] Insurance: [employer], Medicare A&B Prescription Benefit: yes LNOK: Abraham - , Harsha - son Living Arrangements: Pt lives with in a ranch home with a ramp to enter. Pt states he is I with ADLs and needs assistance with IADL's. Transportation: Pt drives pt with accessible van. DME: WC, Walker, Hospital Bed, Shower Bench but takes a sponge bath because bathroom not accessible for . Pt states has supplies for colostomy, uses [facility] for supplies. HHC/SNF: Current pt of [facility], pt stated he has been to SNF in [place] cannot recall name of facility. Pt states no concerns with going home at time of dc. Pt stated he would like to continue using [facility] and denies wanting to see a list of HHC agencies. [facility] visits one time a week to do dressing change, pt doing additional dressing changes at home and states she will continue to do dressing changes at home. Pt denies Hx of O2 use, currently using O2 in room. Pt provided with a verbal list of local DME providers, stated previously used [facility] for DME and would like to use them again if pt needs any DME at DC. Pt states no further concerns/needs. CM to follow. Advised pt to ask CM if any further question/concerns/needs arise, voices understanding. Pt Goal: Home Plan: Home, will follow oxygen needs and update [facility] upon DC to resume services and any additional HHC needs. Nay PURCELL CM
[2023-08-27 10:48] LABS: Anion Gap 5 (5-15); BUN 11 mg/dL (7-18); BUN/Creat Ratio 20.1 RATIO (10-20); Calcium,Total 8.6 mg/dL (8.5-10.1); Chloride 108 mmol/L (98-107); Creatinine, Serum 0.55 mg/dL (0.70-1.30); EST Glomerular Filtration Rate 159 mL/min (>60); Est Glom Filt Rate - Afr Amer 193 mL/min (>60); Estimated Creatinine Clearance 80.86 ml/min; Glucose 125 mg/dL (74-106); Potassium 4.5 mmol/L (3.5-5.1); Prealbumin 21.3 mg/dL (20.0-40.0); Sodium Level 138 mmol/L (136-145)
--- NOTE | 2023-08-27 11:18 | WOUNDNOTE ---
wound photo: right ischium
[2023-08-27] MEDS: Lactated Ringers 1,000 ML 60 ML IV (11:51)
[2023-08-27] MEDS: DAKIN'S SOL HALF STRENGTH (=0.25%) 1 APPLIC TOPICAL (11:59)
[2023-08-27 14:00] VITALS: BP 105/53; PULSE 67; RESP 14; TEMP 36.4; O2SAT 98
--- NOTE | 2023-08-27 15:22 | CASEMGMT ---
Met with patient to complete URIBE form. URIBE form explained to patient who voiced understanding and signed form. Original form placed in pt?s chart and copy provided to patient. Fiorella Rice, Discharge Planning Asst
--- NOTE | 2023-08-27 16:41 | PCM.PN.SRG ---
Subjective Subjective Postop #1 Patient is resting comfortably. He tolerated the dressing change. Objective Data Objective Data Vital Signs: Vital Signs Temp Pulse Resp BP Pulse Ox O2 Del Method O2 Flow Rate 97.6 F L 67 14 105/53 L 98 Room Air 2 08/27/23 14:00 08/27/23 14:00 08/27/23 14:00 08/27/23 14:00 08/27/23 14:00 08/27/23 14:00 08/27/23 09:20 Oxygen Flow Rate (L/min) 2 Oxygen Delivery Method Room Air Weight: 165 lb Body Mass Index (BMI) 26.6 Intake & Output: Intake and Output for Last 24 Hours 08/25/23 08/26/23 08/27/23 23:59 23:59 23:59 Intake Total 593.25 / 705.25 1729 / 1729 Output Total 475 / 475 Balance 118.25 / 230.25 1729 / 1729 Prealbumin was 21.3. Encourage nutritional supplementation with protein to help the healing process. Lab / Micro Data Attestation: I reviewed the patient's lab results. 08/27/23 06:10 08/27/23 06:10 Labs: Laboratory Results - last 24 hr 08/27/23 06:10: WBC 9.7, RBC 4.52 L, Hgb 13.1, Hct 41.0, MCV 90.7, MCH 29.0, MCHC 32.0, RDW Std Deviation 52.2 H, RDW Coeff of Josue 15.7 H, Plt Count 343, MPV 9.5, Sodium 138, Potassium 4.5, Chloride 108 H, Carbon Dioxide 25.0, Anion Gap 5, BUN 11, Creatinine 0.55 L, Estim Creat Clear Calc 80.86, Est GFR (MDRD) Af Amer 193, Est GFR (MDRD) Non-Af 159, BUN/Creatinine Ratio 20.1 H, Glucose 125 H, Calcium 8.6, Prealbumin 21.3 Micro: Microbiology 08/26/23 14:00 Tissue - Ischial Pressure Sore Gram Stain - Final 08/26/23 14:00 Tissue - Ischial Pressure Sore Wound Culture - Preliminary Mixed Gram Pos & Gram Neg Org 08/26/23 14:11 Bone - Ischial Bone Gram Stain - Final 08/26/23 14:11 Bone - Ischial Bone Wound Culture - Preliminary Mixed Culture Physical Exam Narrative PHYSICAL EXAMINATION General - Alert and Oriented HEENT - PERRL. EOMI. Neck - Supple and nontender. Abdomen - Soft and nondistended. Buttock - right ischial ulcer is stable. No active bleeding seen. Was going to apply the VAC. The patient was not interested in the VAC. Dakin's dressing was applied and the Dakin's dressing changes would be daily. Neuro - CN II-XII grossly intact. Psych - Normal mood and affect. Assessment & Plan Assessment/Plan (1) Right ischial pressure sore, stage 4: (2) Osteomyelitis of right side of pelvis: (3) Paraplegic spinal paralysis: (4) Bedridden: (5) S/P colostomy: (6) Smoker: PLAN: Plan Patient's right ischial ulcer dressing was removed. The ulcer looked stable. No active bleeding was seen. Was going to place the VAC. Patient was not interested in the VAC. So we started Dakin's dressing changes to be done daily. Operative cultures showed a preliminary result of mixed gram positive and gram negative organisms in the soft tissue and mixed culture in the bone. He will be discharged on Augmentin. Based on the final culture result, antibiotic modification may be necessary. Anticipate increased metabolic demands from this right ischial pressure sore. Prealbumin was 21.3. Encourage nutritional supplementation with protein to help the healing process. Discharge home today. He will followup at the [facility] Center on 09/02/23. Wrote scripts for Augmentin, Acidophilus/Probiotic, and Percocet for pain (10 tabs). Encouraged patient to stop smoking as it may have deleterious effects on wound healing. The patient is interested in wound closure at some point. My criteria include maximizing his nutrition to help the healing process, treat and control any infection, and the necessity for being on complete bedrest for 6 weeks.
--- NOTE | 2023-08-27 16:44 | PCM.DC ---
Discharge Instructions Diet Discharge Diet: No restrictions and - (encourage nutritional supplementation with protein to help the healing process.) Activity Discharge Activity: May Shower (with assist. may be up in wheelchair with assist. needs to do pressure releases every 10 minutes for 10 seconds while in the chair.) Dressing / Incision Call your doctor if your incision/area has: Continuous Slow Oozing, Sudden Increased Bleeding, Increased Pain/ Swelling, Increased Redness, Foul Smelling Discharge and Swelling at the incision site Call your doctor if you observe: Fever of 101 or Higher, Coldness, Increased Pain, Shortness of breath, Chest pain, Calf discomfort and Uncontrolled pain Change Dressing in: 1 day (daily dakin's dressing changes to right ischial ulcer.) Cleanse incision/area with: Soap & Water (cleanse the right ischial pressure sore with soap and water at the time of the dakin's dressing change.) Follow Up Care Please Follow Up With: Kemi Rubio NP, PNEUMATIC HOIST OPERATOR-C When: thursday at the wound center 09/02/23. call [phone] if any questions. Test Results: Test results from this visit will be discussed in further detail at your follow-up appointment, if applicable. Discharge Plan Admission Admit Date/Time: 08/26/23 13:56 Primary Reason for Your Visit: exc rt ischial pressure sore with partial ostectomy for osteomyelitis Attending Provider: Popeye Messina Primary Care Provider: Brian Zimmerman Discharge Orders/Prescriptions Prescriptions: New amoxicillin-pot clavulanate [Augmentin] 500-125 mg tablet 1 tab PO TID 10 Days Qty: 30 2RF L.acidoph,saliva-B.bif-S.therm [Acidophilus Probiotic Blend] 175 mg capsule 1 cap PO DAILY Qty: 30 0RF oxycodone-acetaminophen [Percocet] 5-325 mg tablet 1 tab PO BID PRN (Reason: pain (scale score 7-10)) 5 Days Qty: 10 0RF Rx Instructions: 10 tabs (ten) Continued tamsulosin 0.4 MG capsule 0.4 mg PO BID baclofen 10 MG tablet 15 mg PO TID Patient Comments: 1.5 TABS = 15 MG TID levothyroxine 125 MCG tablet 125 mcg PO DAILY icosapent ethyl [Vascepa] 1 gram Capsule 2 g PO BID acetaminophen 650 mg Tablet Extended Release 1,300 mg PO Q8H PRN (Reason: Pain) esomeprazole magnesium [Nexium] 40 mg Capsule,Delayed Release(Dr/Ec) 40 mg PO DAILY HySept 0.25 % solution See Rx Instructions .ROUTE .COMPLEX Qty: 473 1RF Dose Instruction: APPLY ONE TIME A DAY FOR 30 DAYS Rx Instructions: APPLY ONE TIME A DAY FOR 30 DAYS Referrals / Follow Up: Popeye Messina MD [Med Staff - Active Staff] - Within 1 Week (at wound center) Brian Zimmerman MD [Primary Care Provider] - Disposition Disposition (needs filled in before D/C Order can be placed): Home Health Service
--- NOTE | 2023-08-27 18:40 | NURSING ---
CONFIRMATION # FOR [facility] AIRLINE PILOT FLIGHT INSTRUCTOR: [id number]
== END 2023-08-27 17:38 | disposition home health service (06) ==
LOC: SDC 14:20 → MS3 14:20
PROVIDERS: Anesthesiology; Admitting Provider Surgery; PCP Family Medicine; Referring Provider Surgery; Visit Provider Surgery
PROC: (CPT 15946; principal; 2023-08-26 11:35)
DX: L89.214 Pressure ulcer of right hip, stage 4 (principal); G82.20 Paraplegia, unspecified; Z93.3 Colostomy status; M86.8X8 Other osteomyelitis, other site; J44.9 Chronic obstructive pulmonary disease, unspecified; Z74.01 Bed confinement status; F17.200 Nicotine dependence, unspecified, uncomplicated; Z79.899 Other long term (current) drug therapy; E78.00 Pure hypercholesterolemia, unspecified
CPT/HCPCS: 15946; 01120; 36415; 80048; 84134; 84443; 85025; 85027; 87070; 87075; 87077; 87102; 87176; 87186; 87205; 87206; 88305; 88311; 96365; 96366; 96372; 99221; 99406; J7120; G0378; J0295; J2405

== ENCOUNTER 2023-09-21 13:00 | Outpatient (RCR) | payer BC, MEDICARE, SELFPAY ==
[2023-08-29 01:00] VITALS: BP 154/105; PULSE 90; RESP 18; TEMP 35.9; BMI 35.5
[2023-09-07 10:23] VITALS: BP 114/68; PULSE 93; RESP 20; TEMP 36.6; BMI 35.5
--- NOTE | 2023-09-07 11:07 | PCM.WC.PN ---
History of Present Illness Date of Service: 09/07/23 Chief Complaint: Right ischial pressure sore, Stage IV. History of Wound: This is a 68-year-old white male who presented to the wound healing center with complaints of pressure ulcer to right buttock area with extension to the right ischial bone. This started in October,. Patient's was treating with OTC creams and keeping area clean. The ulcer starting increasing in size and went to the Emergency Department on 02/08/22. CT showed subcutaneous and deep soft tissue involvement and possible early abscess formation. The bone was not addressed. The patient has very limited mobility as a result of a prior spine injury/surgery. He utilizes a wheelchair at all times. He has not been using his billy lift at home to transfer but has been using a board to slide himself from his bed to chair at home. He sits in his wheelchair almost all day, not really able to change positions. They finally obtained a low air loss overlay to their regular mattress at home. A roho cushion was ordered for his wheelchair. Patient is a former smoker, he quit early 2023. Surgery 04/28/22 - Excision right ischial pressure sore, Stage IV, with partial ostectomy for osteomyelitis. Size of wound 8 x 7 x 4.5 cm. Operative tissue cultures positive for MSSA and Cutibacterium acnes. Bone cultures positive for MSSA and Corynebacterium striatum. He is being treated with Augmentin. Pathology from surgery 04/28/22 showed chronic reparative and reactive change. No evidence of acute osteomyelitis. He had a diverting colostomy placed on 11/21/[address] Romero. Surgery 08/26/23 - Excision recurrent right ischial pressure sore, Stage IV, with partial ostectomy for osteomyelitis. Discharged home on 08/27/23. Pathology right ischial pressure sore soft tissue showed focal ulceration, acute and chronic inflammation an granulation tissue reaction. Right ischial bone, partial ostectomy showed fragments of bone with chronic inflammation and reactive changes, negative for acute osteomyelitis. Operative soft tissue cultures from 08/26/23 positive for Serratia marcescens, Staphylococcus capitis, and Corynebacterium striatum. Operative bone cultures from 08/26/23 positive for Serratia marcescens and Corynebacterium striatum. Wound culture from 4/17/23 positive for Staphylococcus aureus and he was treated with Augmentin. Wound culture obtained 11/10/22 which was positive for Staphylococcus aureus and he was treated with Augmentin. Wound culture obtained 04/06/23 which was positive for Staphylococcus aureus, Corynebacterium striatum, and Enterococcus faecalis. He is being treated with Augmentin. Prealbumin 13.4 on 04/29/22. Encourage nutritional supplementation with protein to help the healing process. He was seen in the ED on 05/02/22 because of a couple falls he experienced since his surgery. CT of his pelvis showed some bony disruption at the level of the inferior pubic ramus suggests a mild osteomyelitis. Today he denies fever. His appetite is ok. Progress of Wound: Ulcer is stable after his operative debridement on 08/26/23. There is no active bleeding. Bone is palpable. He and is decided not to use a wound vac because of all the issue he previously has had with the wound VAC and had issues with keeping a good seal, especially because he transfers himself from his bed to his wheelchair. He is tolerating the Dakin's moistened gauze dressing. Objective Data Objective Data Vital Signs: Vital Signs Temp Pulse Resp BP 98 F 93 20 H 114/68 09/07/23 10:23 09/07/23 10:23 09/07/23 10:23 09/07/23 10:23 Weight: 220 lb Body Mass Index (BMI) 35.5 Charges/Coding Procedures Integumentary [id number]: [id number] Global Visit Debridement Note Debridement Note No debridement was completed: No debridement was completed today Post-Debridement Measurements and Additional Note: Post-Debridement Measurements/Treatment - Nurse 1 - General Ulcer Assessment Start: 09/07/23 10:21 Freq: Status: Active Protocol: [email or web address] Activity Type Activity Date Activity User E-sign Co-sign Detail Recorded Client Recorded Date Recorded By Document 09/07/23 10:23 DL ..25.7 09/07/23 10:33 DL 09/07/23 10:23 - Today's Visit Information Type of service Follow-up Visit (Physician/PHP PROGRAMMER ) Arrival Mode Wheelchair Transfer Assistance Billy Lift Transfer Assist (Other) x2 Patient Identification Verified (Name & Yes ) Patient Requires Transmission-Based No Precautions Height and Weight Body Mass Index (BMI) 35.5 BMI Classification Obese Vital Signs Temperature (97.8 F-99.1 F) 98 F Temperature Source Temporal Pulse Rate (60-100) 93 Pulse Location Monitor Respiratory Rate (12-18) 20 H Respiratory rate source Observation Blood Pressure (90/60-120/80) 114/68 Blood Pressure Mean (mm Hg) 83 Source Monitor History Since Last Visit- (Skip if this is Patient's initial visit) Have you changed medications since your No last visit? Any new allergies or adverse reactions No Had a fall/change in ADL's that may No increase risk of falls Signs or symptoms of abuse and/or No neglect since last visit Have you been in the hospital since your Yes last visit? Has dressing in place as prescribed Yes Has compression in place as prescribed N/A Has offloadiing in place as prescribed Yes Experienced any changes in pain level or No management Pain Scale: 0-10 Numeric Is Patient Pain Free? Yes WC - Nurse 1 - General Ulcer Measurement Start: 09/07/23 10:21 Freq: Status: Active Protocol: Activity Type Activity Date Activity User E-sign Co-sign Detail Recorded Client Recorded Date Recorded By Document 09/07/23 10:23 DL 10.01.21.7 09/07/23 10:33 DL Edit Result 09/07/23 10:23 DL (1) 10.01.21.7 09/07/23 10:36 DL (1) #5- R ischium Post op - Tenderness on Palpation (Michelle-wound No => Yes: States pain Skin Appearance) => at times 4-5 09/07/23 10:23 Wound Center Nurse 1 #5- R ischium Post op -Current Size (cm) - Length 5.9 -Current Size (cm) - Width 5.2 -Current Size (cm) - Depth 5 -Total Square Cm 30.68 -Photo Taken Yes -Tunneling Position (O'clock) 1 -Tunneling Distance (cm) 4.9 -Maximum Distance #2 (cm) 0.6 -Circular Undermining Yes -Exudate Amt Medium -Exudate Type Serosanguineous -Wound Margin Distinct, Outline Attached -Granulation Amt Medium (34-66%) -Granulation Quality Red -Necrosis Amt Medium (34-66%) -Necrotic Tissue Type Adherent Slough -Structure Exposed Bone -Texture (Michelle-wound Skin Appearance) Scarring -Moisture (Michelle-wound Skin Appearance) No Abnormality, Maceration -Color (Michelle-wound Skin Appearance) No Abnormality -Temperature (Michelle-wound Skin No Abnormality Appearance) (Pt Warm) -Tenderness on Palpation (Michelle-wound Yes: States Skin Appearance) pain at times 4 -5 -Ulcer Cleansing Soap and Water -Foul Odor after Cleansing No -Anesthetic Used 4% Lidocaine Solution - Nurse 2 - General Ulcer CM Notes Start: 09/07/23 10:21 Freq: Status: Active Protocol: Activity Type Activity Date Activity User E-sign Co-sign Detail Recorded Client Recorded Date Recorded By Document 09/07/23 10:[address] [facility] [id number] 09/07/23 10:[address] [facility] 09/07/23 10:47 Wound Center Nurse 2 -Post Debridement (cm) - Length 5.9 -Post Debridement (cm) - Width 5.2 -Post Debridement (cm) - Depth 5 -Total Square (Post) (cm) 30.68 -Area of Debridement (cm) - Length 5.9 -Area of Debridement (cm) - Width 5.2 -Total Square (Area) (cm) 30.68 -Tunneling Yes -Tunneling Position (O'clock) 1 -Tunneling Distance (cm) 4.9 -Undermining/Tunneling No -Circular Undermining No -Wound/Ulcer Outcome Not Healed -Bleeding Controlled with NA Pain Scale: 0-10 Numeric Is Patient Pain Free? Yes - Nurse 3 - General Ulcer D/C NN Start: 09/07/23 10:21 Freq: Status: Active Protocol: Activity Type Activity Date Activity User E-sign Co-sign Detail Recorded Client Recorded Date Recorded By Document 09/07/23 10:[address] [facility] [id number] 09/07/23 10:[address] [facility] 09/07/23 10:57 Wound Care Center Nurse 3 #5- R ischium Post op -Ulcer Cleansing Rinsed/ Irrigated with Saline -Foul Odor after Cleansing No -Other Dressing dakins moist gauze; drsg per dl housing court judge -Primary Dressing Covered/Secured with Secured with Tape -Other Covering abd Treatment Response Procedure Tolerated Well Pain Scale: 0-10 Numeric Is Patient Pain Free? Yes - Visit Discharge Discharge Condition Stable Ambulatory Status Wheelchair Transportation Private [facility] Facility Type Home Health Assessment/Plan Assessment/Plan (1) Right ischial pressure sore, stage 4: CODE(S): L89.314 - Pressure ulcer of right buttock, stage 4 (2) Osteomyelitis of right side of pelvis: CODE(S): M86.9 - Osteomyelitis, unspecified (3) Smoker: CODE(S): F17.200 - Nicotine dependence, unspecified, uncomplicated (4) Wheelchair dependent: CODE(S): Z99.3 - Dependence on wheelchair PLAN: Plan Wound care - Dakins 0.25% moistened gauze topped by ABD/ 1-2 times per day and as needed. They have home health to help assist with his dressing changes. Operative soft tissue cultures from 08/26/23 positive for Serratia marcescens, Staphylococcus capitis, and Corynebacterium striatum. Operative bone cultures from 08/26/23 positive for Serratia marcescens and Corynebacterium striatum. He was discharged home on Augmentin. That is not sensitive to these bacteria. Will refer him to ID for further evaluation of his positive bone cultures. Operative tissue cultures from 04/28/22 were positive for MSSA and Cutibacterium acnes. Bone cultures positive for MSSA and Corynebacterium striatum. He completed Augmentin. He was seen in the ED on 05/02/22 because of a couple falls he experienced since his surgery. CT of his pelvis showed some bony disruption at the level of the inferior pubic ramus suggests a mild osteomyelitis. Prealbumin 13.4 on 04/29/22. Anticipate increased metabolic demands from the infection. Encourage nutritional supplementation with protein to help the healing process. A wound culture was obtained on 07/14/22, which was positive for Staphylococcus aureus and was treated with Augmentin. Wound culture obtained 11/10/22 which was positive for MSSA and he completed the Augmentin. Wound culture obtained 04/06/23 which was positive for Staphylococcus aureus, Corynebacterium striatum, and Enterococcus faecalis. He is being treated with Augmentin, which he just refilled. Patient had a diverting colostomy on 11/21/22. The diversion of the stool has made a noticeable difference in the appearance of the ulcer. Encouraged increased protein intake to help with wound healing. Patient states that he stopped smoking after his wound care visit on 05/19/23. He continues to deny smoking. Stressed importance of not smoking how how it impacts wound healing and potential future surgeries, including flaps. Follow up 2weeks.
[2023-09-21 13:07] VITALS: BP 126/85; PULSE 84; RESP 16; TEMP 36.1; BMI 35.5
--- NOTE | 2023-09-21 14:45 | PCM.WC.PN ---
History of Present Illness Date of Service: 09/21/23 Chief Complaint: Right ischial pressure sore, Stage IV. History of Wound: This is a 68-year-old white male who presented to the wound healing center with complaints of pressure ulcer to right buttock area with extension to the right ischial bone. This started in October,. Patient's was treating with OTC creams and keeping area clean. The ulcer starting increasing in size and went to the Emergency Department on 02/08/22. CT showed subcutaneous and deep soft tissue involvement and possible early abscess formation. The bone was not addressed. The patient has very limited mobility as a result of a prior spine injury/surgery. He utilizes a wheelchair at all times. He has not been using his billy lift at home to transfer but has been using a board to slide himself from his bed to chair at home. He sits in his wheelchair almost all day, not really able to change positions. They finally obtained a low air loss overlay to their regular mattress at home. A roho cushion was ordered for his wheelchair. Patient is a former smoker, he quit early 2023. Surgery 04/28/22 - Excision right ischial pressure sore, Stage IV, with partial ostectomy for osteomyelitis. Size of wound 8 x 7 x 4.5 cm. Operative tissue cultures positive for MSSA and Cutibacterium acnes. Bone cultures positive for MSSA and Corynebacterium striatum. He is being treated with Augmentin. Pathology from surgery 04/28/22 showed chronic reparative and reactive change. No evidence of acute osteomyelitis. He had a diverting colostomy placed on 11/21/[address] Romero. Surgery 08/26/23 - Excision recurrent right ischial pressure sore, Stage IV, with partial ostectomy for osteomyelitis. Discharged home on 08/27/23. Pathology right ischial pressure sore soft tissue showed focal ulceration, acute and chronic inflammation an granulation tissue reaction. Right ischial bone, partial ostectomy showed fragments of bone with chronic inflammation and reactive changes, negative for acute osteomyelitis. Operative soft tissue cultures from 08/26/23 positive for Serratia marcescens, Staphylococcus capitis, and Corynebacterium striatum. Operative bone cultures from 08/26/23 positive for Serratia marcescens and Corynebacterium striatum. Wound culture from 4/17/23 positive for Staphylococcus aureus and he was treated with Augmentin. Wound culture obtained 11/10/22 which was positive for Staphylococcus aureus and he was treated with Augmentin. Wound culture obtained 04/06/23 which was positive for Staphylococcus aureus, Corynebacterium striatum, and Enterococcus faecalis. He is being treated with Augmentin. Prealbumin 13.4 on 04/29/22. Encourage nutritional supplementation with protein to help the healing process. He was seen in the ED on 05/02/22 because of a couple falls he experienced since his surgery. CT of his pelvis showed some bony disruption at the level of the inferior pubic ramus suggests a mild osteomyelitis. Today he denies fever. His appetite is ok. Progress of Wound: Ulcer is stable. He has a sharp piece of palpable bone that the dressing is getting caught on. There is no active bleeding. He and is still do not want to use a wound vac because of all the issue he previously has had with the wound VAC. He is tolerating the Dakin's moistened gauze dressing. He was referred to ID for consult for positive operative culture. He does not have an appointment with him until October. Objective Data Objective Data Vital Signs: Vital Signs Temp Pulse Resp BP O2 Del Method 96.9 F L 84 16 126/85 H Room Air 09/21/23 13:07 09/21/23 13:07 09/21/23 13:07 09/21/23 13:07 09/21/23 13:07 Oxygen Delivery Method Room Air Weight: 220 lb Body Mass Index (BMI) 35.5 Charges/Coding Procedures Integumentary 111xxx-113xx: 18140 Global Visit Debridement Note Debridement Note Wound debrided: #5 Right ischial ulcer Laterality: Right Wound Grade/Stage: Stage IV Type of Debridement: Excisional debridement Anesthesia Used: 4% Lidocaine Solution Depth: Down to and including healthy tissue, in the subcutaneous layer, to muscle and to bone Percentage of wound debrided: 100 Instrument Used: 7mm curette Tissue Removed: Non viable tissue & slough into the muscle. Piece of sharp bone nipped off Severity: Fat Layer Exposed Amount of bleeding with debridement: Mild Bleeding Controlled with: Compression and gauze Patient tolerated procedure: Patient tolerated procedure well Post-Debridement Measurements and Additional Note: Post-Debridement Measurements/Treatment WC - Nurse 1 - General Ulcer Assessment Start: 09/07/23 10:21 Freq: Status: Active Protocol: KIRA Activity Type Activity Date Activity User E-sign Co-sign Detail Recorded Client Recorded Date Recorded By Document 09/07/23 10:23 DL ..25.7 09/07/23 10:33 DL Document 09/21/23 13:07 [facility] 09/21/23 13:20 BM 09/07/23 09/21/23 10:23 13:07 WC - Today's Visit Information Type of service Follow-up Visit Follow-up Visit (Physician/LADLE REPAIRER (Physician/LADLE REPAIRER ) ) Arrival Mode Wheelchair Wheelchair Transfer Assistance Billy Lift Billy Lift Transfer Assist (Other) x2 2 Accompanied by Patient Identification Verified (Name & Yes Yes ) Patient Requires Transmission-Based No No Precautions Height and Weight Body Mass Index (BMI) 35.5 35.5 BMI Classification Obese Obese Vital Signs Temperature (97.8 F-99.1 F) 98 F 96.9 F L Temperature Source Temporal Temporal Pulse Rate (60-100) 93 84 Pulse Location Monitor Monitor Respiratory Rate (12-18) 20 H 16 Respiratory rate source Observation Observation Oxygen Delivery Method Room Air Blood Pressure (90/60-120/80) 114/68 126/85 H Blood Pressure Mean (mm Hg) 83 98 Source Monitor Monitor Position Sitting Blood Pressure Location Left Arm History Since Last Visit- (Skip if this is Patient's initial visit) Have you changed medications since your No No last visit? Any new allergies or adverse reactions No No Had a fall/change in ADL's that may No No increase risk of falls Signs or symptoms of abuse and/or No No neglect since last visit Have you been in the hospital since your Yes No last visit? Has dressing in place as prescribed Yes Yes Has compression in place as prescribed N/A N/A Has offloadiing in place as prescribed Yes N/A Experienced any changes in pain level or No No management Left Footwear Custom Shoe Right Footwear Custom Shoe Pain Scale: 0-10 Numeric Is Patient Pain Free? Yes Yes DILCIA - Nurse 1 - General Ulcer Measurement Start: 09/07/23 10:21 Freq: Status: Active Protocol: Activity Type Activity Date Activity User E-sign Co-sign Detail Recorded Client Recorded Date Recorded By Document 09/07/23 10:23 DL 25.7 09/07/23 10:33 DL Edit Result 09/07/23 10:23 DL (1) 01.06.25.7 09/07/23 10:36 DL Document 09/21/23 13:07 [facility] 09/21/23 13:20 BMF (1) #5- R ischium Post op - Tenderness on Palpation (Michelle-wound No => Yes: States pain Skin Appearance) => at times 4-5 09/07/23 09/21/23 10:23 13:07 Wound Center Nurse 1 #5- R ischium Post op -Combined with other wound No -Current Size (cm) - Length 5.9 6 -Current Size (cm) - Width 5.2 4.8 -Current Size (cm) - Depth 5 6.3 -Total Square Cm 30.68 28.8 -Date of Last Picture (Recall this 09/21/23 field) -Photo Taken Yes Yes -Tunneling Yes -Tunneling Position (O'clock) 1 1 -Tunneling Distance (cm) 4.9 5.2 -Undermining/Tunneling No -Maximum Distance #2 (cm) 0.6 -Circular Undermining Yes No -Exudate Amt Medium Large -Exudate Type Serosanguineous Serosanguineous -Wound Margin Distinct, Distinct, Outline Outline Attached Attached -Granulation Amt Medium (34-66%) Large (67-100%) -Granulation Quality Red Red -Slough/Fibrin Yes -Necrosis Amt Medium (34-66%) Small (1-33%) -Necrotic Tissue Type Adherent Slough Adherent Slough -Structure Exposed Bone Bone -Texture (Michelle-wound Skin Appearance) Scarring Assessed, Scarring -Moisture (Michelle-wound Skin Appearance) No Abnormality, Assessed Maceration -Color (Michelle-wound Skin Appearance) No Abnormality Assessed -Temperature (Michelle-wound Skin No Abnormality No Abnormality Appearance) (Pt Warm) (Pt Warm) -Tenderness on Palpation (Michelle-wound Yes: States No Skin Appearance) pain at times 4 -5 -Ulcer Cleansing Soap and Water Soap and Water -Foul Odor after Cleansing No No -Anesthetic Used 4% Lidocaine 4% Lidocaine Solution Solution WC - Nurse 2 - General Ulcer CM Notes Start: 09/07/23 10:21 Freq: Status: Active Protocol: Activity Type Activity Date Activity User E-sign Co-sign Detail Recorded Client Recorded Date Recorded By Document 09/07/23 10:47 [facility] [id number] 09/07/23 10:53 [facility] Document 09/21/23 13:32 JF 0000 09/21/23 13:39 JF 09/07/23 09/21/23 10:47 13:32 Wound Center Nurse 2 #5- R ischium Post op -Time 13:32 -Correct Patient Yes -Correct Side, Site, Position Yes -Correct Procedure Yes -Procedure Performed Yes -Type of Procedure Debridement -Clinical Debridement Bone -Tissue Removed Slough,Non- viable tissue -Post Debridement (cm) - Length 5.9 7 -Post Debridement (cm) - Width 5.2 6.5 -Post Debridement (cm) - Depth 5 4.5 -Total Square (Post) (cm) 30.68 45.5 -Area of Debridement (cm) - Length 5.9 7 -Area of Debridement (cm) - Width 5.2 6.5 -Total Square (Area) (cm) 30.68 45.5 -Tunneling Yes Yes -Tunneling Position (O'clock) 1 1 -Tunneling Distance (cm) 4.9 7.8 -Undermining/Tunneling No No -Circular Undermining No No -Wound/Ulcer Outcome Not Healed Not Healed -Ulcer Cleansing Rinsed/ Irrigated with Saline -Foul Odor after Cleansing No -Bioengineered Tissue No -Bleeding Controlled with NA Pressure -Treatment Response Procedure Tolerated Well -Offloading No -Pressure Reduction Wheelchair cushion -Debridement - Muscle / Fascia, 1st No 20sq cm -Debridement - Bone, 1st 20sq cm Yes -Debridement, Bone, ea addt'l 20sq cm 2 or part thereof Pain Scale: 0-10 Numeric Is Patient Pain Free? Yes Yes WC - Nurse 3 - General Ulcer D/C NN Start: 09/07/23 10:21 Freq: Status: Active Protocol: Activity Type Activity Date Activity User E-sign Co-sign Detail Recorded Client Recorded Date Recorded By Document 09/07/23 10:57 [facility] [id number] 09/07/23 10:57 [facility] Document 09/21/23 13:47 KW k 09/21/23 13:59 KW 09/07/23 09/21/23 10:57 13:47 Wound Care Center Nurse 3 #5- R ischium Post op -Ulcer Cleansing Rinsed/ Irrigated with Saline -Foul Odor after Cleansing No -Primary Dressing Applied Hysept ($) -Other Dressing dakins moist gauze; drsg per dl coiled coil inspector -Primary Dressing Covered/Secured with Secured with Dry Gauze, Tape Secured with Tape -Other Covering abd Treatment Response Procedure Tolerated Well Pain Scale: 0-10 Numeric Is Patient Pain Free? Yes Yes WC - Visit Discharge Discharge Condition Stable Stable Ambulatory Status Wheelchair Ambulatory Transportation Private Auto Private Auto Medication Reconcilliation completed & No provided to patient/care provider Clinical Summary of Care Provided Yes Facility Type Home Health Assessment/Plan Assessment/Plan (1) Right ischial pressure sore, stage 4: CODE(S): L89.314 - Pressure ulcer of right buttock, stage 4 (2) Osteomyelitis of right side of pelvis: CODE(S): M86.9 - Osteomyelitis, unspecified (3) Smoker: CODE(S): F17.200 - Nicotine dependence, unspecified, uncomplicated (4) Wheelchair dependent: CODE(S): Z99.3 - Dependence on wheelchair PLAN: Plan Wound care - Dakins 0.25% moistened gauze topped by ABD/ 1-2 times per day and as needed. They have home health to help assist with his dressing changes. Operative soft tissue cultures from 08/26/23 positive for Serratia marcescens, Staphylococcus capitis, and Corynebacterium striatum. Operative bone cultures from 08/26/23 positive for Serratia marcescens and Corynebacterium striatum. He was discharged home on Augmentin. That is not sensitive to these bacteria. Will refer him to ID for further evaluation of his positive bone cultures, but he does not have an appointment with Dr. Freedman until October. I will start to treat his cultures with Doxycycline and Levaquin. Prealbumin 08/27/23 - 21.3 Operative tissue cultures from 04/28/22 were positive for MSSA and Cutibacterium acnes. Bone cultures positive for MSSA and Corynebacterium striatum. He completed Augmentin. He was seen in the ED on 05/02/22 because of a couple falls he experienced since his surgery. CT of his pelvis showed some bony disruption at the level of the inferior pubic ramus suggests a mild osteomyelitis. Prealbumin 13.4 on 04/29/22. Anticipate increased metabolic demands from the infection. Encourage nutritional supplementation with protein to help the healing process. A wound culture was obtained on 07/14/22, which was positive for Staphylococcus aureus and was treated with Augmentin. Wound culture obtained 11/10/22 which was positive for MSSA and he completed the Augmentin. Wound culture obtained 04/06/23 which was positive for Staphylococcus aureus, Corynebacterium striatum, and Enterococcus faecalis. He is being treated with Augmentin, which he just refilled. Patient had a diverting colostomy on 11/21/22. The diversion of the stool has made a noticeable difference in the appearance of the ulcer. Encouraged increased protein intake to help with wound healing. Discussed supplemental protein. Patient states that he stopped smoking after his wound care visit on 05/19/23. He continues to deny smoking. Stressed importance of not smoking how how it impacts wound healing and potential future surgeries, including flaps. Follow up 3 weeks.
--- NOTE | 2023-09-24 15:47 | WC ---
Received message from Gertrude from [facility], that pt was refusing to take ATB, Levofloxacin d/t to side effects. Kemi Rubio, aware and stated pt has been on this in the past but if he chooses not to take it then he can wait till he sees Dr. Freedman. Left message with Gertrude from and also the patient, Spoke with Corrina also from [facility].
== END 2023-09-27 23:59 | disposition home or self-care (01) ==
LOC: WC 13:00
PROVIDERS: PCP Family Medicine; Referring Provider Physician Assistant; Visit Provider Nurse Practitioner Family
DX: L89.214 Pressure ulcer of right hip, stage 4 (principal); M86.9 Osteomyelitis, unspecified; Z87.891 Personal history of nicotine dependence; Z99.3 Dependence on wheelchair
CPT/HCPCS: 11044; 11047; 99213; G0463

== ENCOUNTER 2023-10-12 12:59 | Outpatient (RCR) | payer BC, MEDICARE, SELFPAY ==
[2023-09-28 00:13] VITALS: BP 154/105; PULSE 90; RESP 18; TEMP 35.9; BMI 35.5
[2023-10-12 13:09] VITALS: BP 110/58; PULSE 96; RESP 16; TEMP 37.1; BMI 35.5
--- NOTE | 2023-10-12 13:40 | PN.PCM_ITS ---
History of Present Illness Date of Service: 10/12/23 Chief Complaint: Right ischial pressure sore, Stage IV. History of Wound: This is a 68-year-old white male who presented to the wound healing center with complaints of pressure ulcer to right buttock area with extension to the right ischial bone. This started in October,. Patient's was treating with OTC creams and keeping area clean. The ulcer starting increasing in size and went to the Emergency Department on 02/08/22. CT showed subcutaneous and deep soft tissue involvement and possible early abscess formation. The bone was not addressed. The patient has very limited mobility as a result of a prior spine injury/surgery. He utilizes a wheelchair at all times. He has not been using his lm lift at home to transfer but has been using a board to slide himself from his bed to chair at home. He sits in his wheelchair almost all day, not really able to change positions. They finally obtained a low air loss overlay to their regular mattress at home. A roho cushion was ordered for his wheelchair. Patient is a former smoker, he quit early 2023. Surgery 04/28/22 - Excision right ischial pressure sore, Stage IV, with partial ostectomy for osteomyelitis. Size of wound 8 x 7 x 4.5 cm. Operative tissue cultures positive for MSSA and Cutibacterium acnes. Bone cultures positive for MSSA and Corynebacterium striatum. He is being treated with Augmentin. Pathology from surgery 04/28/22 showed chronic reparative and reactive change. No evidence of acute osteomyelitis. He had a diverting colostomy placed on 11/21/[address] Romero. Surgery 08/26/23 - Excision recurrent right ischial pressure sore, Stage IV, with partial ostectomy for osteomyelitis. Discharged home on 08/27/23. Pathology right ischial pressure sore soft tissue showed focal ulceration, acute and chronic inflammation an granulation tissue reaction. Right ischial bone, partial ostectomy showed fragments of bone with chronic inflammation and reactive changes, negative for acute osteomyelitis. Operative soft tissue cultures from 08/26/23 positive for Serratia marcescens, Staphylococcus capitis, and Corynebacterium striatum. Operative bone cultures from 08/26/23 positive for Serratia marcescens and Corynebacterium striatum. He was started on Levaquin and Doxycycline until he can be seen by ID on 11/04/23. Wound culture from 07/14/22 positive for Staphylococcus aureus and he was treated with Augmentin. Wound culture obtained 11/10/22 which was positive for Staphylococcus aureus and he was treated with Augmentin. Wound culture obtained 04/06/23 which was positive for Staphylococcus aureus, Corynebacterium striatum, and Enterococcus faecalis. He is being treated with Augmentin. Prealbumin 13.4 on 04/29/22. Encourage nutritional supplementation with protein to help the healing process. He was seen in the ED on 05/02/22 because of a couple falls he experienced since his surgery. CT of his pelvis showed some bony disruption at the level of the inferior pubic ramus suggests a mild osteomyelitis. Today he denies fever. His appetite is ok. Progress of Wound: Ulcer is beefy pink. The bone is almost covered with granulation tissue. He continues to have a tunnel at 1 o'clock that has not shown much improvement. There is no active bleeding. He is tolerating the Dakin's moistened gauze dressing. He was referred to ID for consult for positive operative cultures. He is scheduled to see Dr. Freedman on 11/04/23. He has been placed on Doxycycline and Levaquin since his appointment with ID isn't until October. Objective Data Objective Data Vital Signs: Vital Signs Temp Pulse Resp BP O2 Del Method 98.7 F 96 16 110/58 L Room Air 10/12/23 13:09 10/12/23 13:09 10/12/23 13:09 10/12/23 13:09 10/12/23 13:09 Oxygen Delivery Method Room Air Weight: 220 lb Body Mass Index (BMI) 35.5 Charges/Coding Procedures Integumentary 111xxx-113xx: 14252 Global Visit Debridement Note Debridement Note Wound debrided: #5 Right ischial ulcer Laterality: Right Wound Grade/Stage: Stage IV Type of Debridement: Excisional debridement Anesthesia Used: 4% Lidocaine Solution Depth: Down to and including healthy tissue, in the subcutaneous layer, to muscle and to bone Percentage of wound debrided: 100 Instrument Used: 7mm curette Tissue Removed: Non viable tissue & slough into the muscle. Bone exposed but no debrided. Severity: Fat Layer Exposed Amount of bleeding with debridement: Mild Bleeding Controlled with: Compression and gauze Patient tolerated procedure: Patient tolerated procedure well Post-Debridement Measurements and Additional Note: Post-Debridement Measurements/Treatment - Nurse 1 - General Ulcer Assessment Start: 10/12/23 13:09 Freq: Status: Active Protocol: KIRA Activity Type Activity Date Activity User E-sign Co-sign Detail Recorded Client Recorded Date Recorded By Document 10/12/23 13:09 [facility] [id number] 10/12/23 13:19 [facility] 10/12/23 13:09 WC - Today's Visit Information Type of service Follow-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 ) Arrival Mode Wheelchair Transfer Assistance Lm Lift Transfer Assist (Other) 2 Accompanied by Patient Identification Verified (Name & Yes ) Height and Weight Body Mass Index (BMI) 35.5 BMI Classification Obese Vital Signs Temperature (97.8 F-99.1 F) 98.7 F Temperature Source Temporal Pulse Rate (60-100) 96 Pulse Location Monitor Respiratory Rate (12-18) 16 Respiratory rate source Observation Oxygen Delivery Method Room Air Blood Pressure (90/60-120/80) 110/58 L Blood Pressure Mean (mm Hg) 75 Source Monitor Position Sitting Blood Pressure Location Right Arm History Since Last Visit- (Skip if this is Patient's initial visit) Have you changed medications since your No last visit? Any new allergies or adverse reactions No Had a fall/change in ADL's that may No increase risk of falls Signs or symptoms of abuse and/or No neglect since last visit Have you been in the hospital since your No last visit? Has dressing in place as prescribed Yes Has compression in place as prescribed N/A Has offloadiing in place as prescribed N/A Experienced any changes in pain level or No management Left Footwear Regular Shoe Right Footwear Regular Shoe Pain Scale: 0-10 Numeric Is Patient Pain Free? Yes - Nurse 1 - General Ulcer Measurement Start: 10/12/23 13:09 Freq: Status: Active Protocol: Activity Type Activity Date Activity User E-sign Co-sign Detail Recorded Client Recorded Date Recorded By Document 10/12/23 13:09 [facility] [id number] 10/12/23 13:19 [facility] 10/12/23 13:09 Wound Center Nurse 1 #5- R ischium Post op -Combined with other wound No -Current Size (cm) - Length 5.8 -Current Size (cm) - Width 5 -Current Size (cm) - Depth 6.3 -Total Square Cm 29.0 -Date of Last Picture (Recall this 10/12/23 field) -Photo Taken Yes -Epithelialization None Present -Tunneling Yes -Tunneling Position (O'clock) 1 -Tunneling Distance (cm) 7.2 -Undermining/Tunneling No -Circular Undermining No -Exudate Amt Large -Exudate Type Serosanguineous -Wound Margin Distinct, Outline Attached -Granulation Amt Large (67-100%) -Granulation Quality Red -Structure Exposed Bone -Texture (Michelle-wound Skin Appearance) Assessed, Scarring -Moisture (Michelle-wound Skin Appearance) Assessed -Color (Michelle-wound Skin Appearance) Assessed -Temperature (Michelle-wound Skin No Abnormality Appearance) (Pt Warm) -Tenderness on Palpation (Michelle-wound No Skin Appearance) -Ulcer Cleansing Soap and Water -Foul Odor after Cleansing No -Anesthetic Used 4% Lidocaine Solution WC - Nurse 2 - General Ulcer CM Notes Start: 10/12/23 13:09 Freq: Status: Active Protocol: Activity Type Activity Date Activity User E-sign Co-sign Detail Recorded Client Recorded Date Recorded By Document 10/12/23 13:25 [facility] [id number] 10/12/23 13:31 [facility] 10/12/23 13:25 Wound Center Nurse 2 -Time 13:25 -Correct Patient Yes -Correct Side, Site, Position Yes -Correct Procedure Yes -Procedure Performed Yes -Type of Procedure Debridement -Clinical Debridement Muscle / Fascia -Tissue Removed Muscle -Post Debridement (cm) - Length 6.5 -Post Debridement (cm) - Width 5.8 -Post Debridement (cm) - Depth 4 -Total Square (Post) (cm) 37.70 -Area of Debridement (cm) - Length 6.5 -Area of Debridement (cm) - Width 5.8 -Total Square (Area) (cm) 37.70 -Tunneling Yes -Tunneling Position (O'clock) 1 -Tunneling Distance (cm) 7.2 -Undermining/Tunneling No -Circular Undermining No -Wound/Ulcer Outcome Not Healed -Ulcer Cleansing Rinsed/ Irrigated with Saline -Foul Odor after Cleansing No -Bioengineered Tissue No -Bleeding Controlled with Pressure -Treatment Response Procedure Tolerated Well -Offloading Yes -Type of Offloading Other -Other Type of Offloading bed, cushion -Pressure Reduction Wheelchair cushion, Specialty bed -Debridement - Muscle / Fascia, 1st Yes 20sq cm -Debridement, Muscle/Fascia, ea addt'l 1 20sq cm or part thereof Pain Scale: 0-10 Numeric Is Patient Pain Free? Yes WC - Nurse 3 - General Ulcer D/C NN Start: 10/12/23 13:09 Freq: Status: Active Protocol: Activity Type Activity Date Activity User E-sign Co-sign Detail Recorded Client Recorded Date Recorded By Document 10/12/23 13:35 KW g 10/12/23 13:36 KW 10/12/23 13:35 Wound Care Center Nurse 3 #5- R ischium Post op -Other Dressing DAKINS SOAKED GAUZE -Primary Dressing Covered/Secured with Dry Gauze, Secured with Tape Pain Scale: 0-10 Numeric Is Patient Pain Free? Yes WC - Visit Discharge Discharge Condition Stable Ambulatory Status Wheelchair Transportation Private Auto Medication Reconcilliation completed & No provided to patient/care provider Clinical Summary of Care Provided Yes Assessment/Plan Assessment/Plan (1) Right ischial pressure sore, stage 4: CODE(S): L89.314 - Pressure ulcer of right buttock, stage 4 (2) Osteomyelitis of right side of pelvis: CODE(S): M86.9 - Osteomyelitis, unspecified (3) Smoker: CODE(S): F17.200 - Nicotine dependence, unspecified, uncomplicated (4) Wheelchair dependent: CODE(S): Z99.3 - Dependence on wheelchair PLAN: Plan Wound care - Dakins 0.25% moistened gauze topped by ABD/ 1-2 times per day and as needed. They have home health to help assist with his dressing changes. Operative soft tissue cultures from 08/26/23 positive for Serratia marcescens, Staphylococcus capitis, and Corynebacterium striatum. Operative bone cultures from 08/26/23 positive for Serratia marcescens and Corynebacterium striatum. He was discharged home on Augmentin. That is not sensitive to these bacteria. Will refer him to ID for further evaluation of his positive bone cultures, but he does not have an appointment with Dr. Freedman until October. I will start to treat his cultures with Doxycycline and Levaquin. He initially was not going to take the Levaquin due to all the potential side effects, but he changed his mind and has been tolerating it well. Prealbumin 08/27/23 - 21.3 Operative tissue cultures from 04/28/22 were positive for MSSA and Cutibacterium acnes. Bone cultures positive for MSSA and Corynebacterium striatum. He completed Augmentin. He was seen in the ED on 05/02/22 because of a couple falls he experienced since his surgery. CT of his pelvis showed some bony disruption at the level of the inferior pubic ramus suggests a mild osteomyelitis. Prealbumin 13.4 on 04/29/22. Anticipate increased metabolic demands from the infection. Encourage nutritional supplementation with protein to help the healing process. A wound culture was obtained on 07/14/22, which was positive for Staphylococcus aureus and was treated with Augmentin. Wound culture obtained 11/10/22 which was positive for MSSA and he completed the Augmentin. Wound culture obtained 04/06/23 which was positive for Staphylococcus aureus, Corynebacterium striatum, and Enterococcus faecalis. He is being treated with Augmentin, which he just refilled. Patient had a diverting colostomy on 11/21/22. The diversion of the stool has made a noticeable difference in the appearance of the ulcer. Encouraged increased protein intake to help with wound healing. Discussed supplemental protein. Patient states that he stopped smoking after his wound care visit on 05/19/23. He continues to deny smoking. Stressed importance of not smoking how how it impacts wound healing and poten tial future surgeries, including flaps. He has a new wheelchair and cushion. Follow up 3 weeks.
--- NOTE | 2023-10-14 09:37 | WC ---
PHOTO 10/12/23 RIGHT ISCHIUM
== END 2023-10-28 23:59 | disposition home or self-care (01) ==
LOC: WC 12:59
PROVIDERS: PCP Family Medicine; Referring Provider Physician Assistant; Visit Provider Nurse Practitioner Family
DX: L89.214 Pressure ulcer of right hip, stage 4 (principal); M86.9 Osteomyelitis, unspecified; F17.200 Nicotine dependence, unspecified, uncomplicated; Z99.3 Dependence on wheelchair
CPT/HCPCS: 11043; 11046

== ENCOUNTER 2023-11-18 12:39 | Outpatient (RCR) | payer BC, MEDICARE, SELFPAY ==
[2023-11-18 13:39] LABS: Absolute Lymphocyte Count 1.98 X10^3/uL (0.83-4.51); Absolute Neutrophil Count 4.2 X10^3/uL (2.0-7.7); Basophil# 0.05 X10^3/uL; Basophil% 0.7 % (0-1); Eosinophil# 0.19 X10^3/uL; Eosinophils% 2.6 % (0-5); Hematocrit 42.4 % (40-54); Hemoglobin 13.3 g/dL (13.0-16.5); Lymphocyte # 1.98 X10^3/ul (0.83-4.51); Lymphocyte % 27.6 % (19-41); Mean Corp Hgb Conc 31.4 g/dL (32-36); Mean Corpuscular Hgb 28.3 pg (27.0-32.0); Mean Corpuscular Volume 90.2 fL (80-94); Mean Platelet Vol. 9.8 fl (6.2-12.0); Monocyte# 0.68 X10^3/uL; Monocyte% 9.5 % (0-10); NRBC Flagged by Analyzer 0 % (0-5); Neutrophil # 4.21 X10^3/uL (2.7-7.7); Neutrophil % 58.6 % (47-70); Platelet Count 338 K/mm3 (150-450); RBC Distribution Width CV 15.5 % (11.6-14.6); White Blood Count 7.2 K/mm3 (4.4-11.0)
[2023-11-18 13:41] LABS: ALB/GLOB Ratio 0.6 RATIO (0.9-2.4); AST(SGOT) 12 U/L (15-37); Alanine Aminotransfer ALT/SGPT 24 U/L (16-61); Albumin, Serum 2.7 g/dL (3.2-5.0); Alkaline Phosphatase 140 U/L (45-117); Anion Gap 3 (5-15); BUN 17 mg/dL (7-18); BUN/Creat Ratio 27.9 RATIO (10-20); Calcium,Total 8.8 mg/dL (8.5-10.1); Chloride 111 mmol/L (98-107); Creatinine, Serum 0.61 mg/dL (0.70-1.30); EST Glomerular Filtration Rate 140 mL/min (>60); Est Glom Filt Rate - Afr Amer 170 mL/min (>60); Globulin 4.2 g/dL (2.2-4.2); Glucose 144 mg/dL (74-106); Potassium 4.1 mmol/L (3.5-5.1); Protein, Total 6.9 g/dL (6.4-8.2); Sodium Level 140 mmol/L (136-145)
[2023-11-22 08:08] LABS: Prealbumin 26 mg/dL (10-36)
== END 2023-11-18 18:00 | disposition home or self-care (01) ==
LOC: HHLAB 12:39
PROVIDERS: Nurse Practitioner Family; PCP Family Medicine; Referring Provider Family Medicine; Visit Provider Family Medicine
DX: L89.314 Pressure ulcer of right buttock, stage 4 (principal); M86.9 Osteomyelitis, unspecified; G82.20 Paraplegia, unspecified; Z99.3 Dependence on wheelchair
CPT/HCPCS: 80053; 83036; 84134; 85025

== ENCOUNTER 2023-11-23 13:00 | Outpatient (RCR) | payer BC, MEDICARE, SELFPAY ==
[2023-10-29 00:35] VITALS: BP 154/105; PULSE 90; RESP 18; TEMP 35.9; BMI 35.5
[2023-11-04 13:32] VITALS: BP 87/44; PULSE 74; RESP 18; TEMP 36.1; BMI 35.5
--- NOTE | 2023-11-04 15:29 | PCM.WC.PN ---
History of Present Illness Date of Service: 11/04/23 Chief Complaint: Right ischial pressure sore, Stage IV. History of Wound: This is a 68-year-old white male who presented to the wound healing center with complaints of pressure ulcer to right buttock area with extension to the right ischial bone. This started in October,. Patient's was treating with OTC creams and keeping area clean. The ulcer starting increasing in size and went to the Emergency Department on 02/08/22. CT showed subcutaneous and deep soft tissue involvement and possible early abscess formation. The bone was not addressed. The patient has very limited mobility as a result of a prior spine injury/surgery. He utilizes a wheelchair at all times. He has not been using his lm lift at home to transfer but has been using a board to slide himself from his bed to chair at home. He sits in his wheelchair almost all day, not really able to change positions. They finally obtained a low air loss overlay to their regular mattress at home. A roho cushion was ordered for his wheelchair. Patient is a former smoker, he quit early 2023. Surgery 04/28/22 - Excision right ischial pressure sore, Stage IV, with partial ostectomy for osteomyelitis. Size of wound 8 x 7 x 4.5 cm. Operative tissue cultures positive for MSSA and Cutibacterium acnes. Bone cultures positive for MSSA and Corynebacterium striatum. He is being treated with Augmentin. Pathology from surgery 04/28/22 showed chronic reparative and reactive change. No evidence of acute osteomyelitis. He had a diverting colostomy placed on 11/21/[address] Romero. Surgery 08/26/23 - Excision recurrent right ischial pressure sore, Stage IV, with partial ostectomy for osteomyelitis. Discharged home on 08/27/23. Pathology right ischial pressure sore soft tissue showed focal ulceration, acute and chronic inflammation an granulation tissue reaction. Right ischial bone, partial ostectomy showed fragments of bone with chronic inflammation and reactive changes, negative for acute osteomyelitis. Operative soft tissue cultures from 08/26/23 positive for Serratia marcescens, Staphylococcus capitis, and Corynebacterium striatum. Operative bone cultures from 08/26/23 positive for Serratia marcescens and Corynebacterium striatum. He was started on Levaquin and Doxycycline until he can be seen by ID on 11/04/23. Wound culture from 07/14/22 positive for Staphylococcus aureus and he was treated with Augmentin. Wound culture obtained 11/10/22 which was positive for Staphylococcus aureus and he was treated with Augmentin. Wound culture obtained 04/06/23 which was positive for Staphylococcus aureus, Corynebacterium striatum, and Enterococcus faecalis. He is being treated with Augmentin. Prealbumin 13.4 on 04/29/22. Encourage nutritional supplementation with protein to help the healing process. He was seen in the ED on 05/02/22 because of a couple falls he experienced since his surgery. CT of his pelvis showed some bony disruption at the level of the inferior pubic ramus suggests a mild osteomyelitis. Today he denies fever. His appetite is ok. Progress of Wound: Ulcer is beefy pink. The bone is palpable but is covered. He continues to have a tunnel at 1 o'clock that is stable. There is no active bleeding. He is tolerating the Dakin's moistened gauze dressing. He sees ID today. He is scheduled 12/11/23 for bladder surgery at [facility] in [place]. His is not completely sure what procedure he is having done. He has been having issues with incontinence and is almost always soaked with urine. Objective Data Objective Data Vital Signs: Vital Signs Temp Pulse Resp BP O2 Del Method 97.0 F L 74 18 87/44 L Room Air 11/04/23 13:32 11/04/23 13:32 11/04/23 13:32 11/04/23 13:32 11/04/23 13:32 Oxygen Delivery Method Room Air Weight: 220 lb Body Mass Index (BMI) 35.5 Charges/Coding Procedures Integumentary 111xxx-113xx: [id number] Global Visit Debridement Note Debridement Note Wound debrided: #5 Right ischial ulcer Laterality: Right Wound Grade/Stage: Stage IV Type of Debridement: Excisional debridement Anesthesia Used: 4% Lidocaine Solution Depth: Down to and including healthy tissue, in the subcutaneous layer, to muscle and to bone Percentage of wound debrided: 100 Instrument Used: 7mm curette Tissue Removed: Non viable tissue & slough into the muscle. Bone exposed but no debrided. Severity: Fat Layer Exposed Amount of bleeding with debridement: Mild Bleeding Controlled with: Compression and gauze and Silver Nitrate (to one area that continued to ooze after debridement and compression) Patient tolerated procedure: Patient tolerated procedure well Post-Debridement Measurements and Additional Note: Post-Debridement Measurements/Treatment - Nurse 1 - General Ulcer Assessment Start: 11/04/23 13:32 Freq: Status: Active Protocol: KIRA Activity Type Activity Date Activity User E-sign Co-sign Detail Recorded Client Recorded Date Recorded By Document 11/04/23 13:32 DS 1 11/04/23 13:34 DS 11/04/23 13:32 WC - Today's Visit Information Type of service Follow-up Visit (Physician/PACKAGE HANDLER ) Arrival Mode Wheelchair Transfer Assistance Lm Lift Safety Precautions Fall Prevention Height and Weight Body Mass Index (BMI) 35.5 BMI Classification Obese Vital Signs Temperature (97.8 F-99.1 F) 97.0 F L Temperature Source Temporal Pulse Rate (60-100) 74 Pulse Location Monitor Respiratory Rate (12-18) 18 Respiratory rate source Observation Oxygen Delivery Method Room Air Blood Pressure (90/60-120/80) 87/44 L Blood Pressure Mean (mm Hg) 58 Source Monitor Position Left Lateral Blood Pressure Location Right Arm History Since Last Visit- (Skip if this is Patient's initial visit) Have you changed medications since your No last visit? Any new allergies or adverse reactions No Had a fall/change in ADL's that may No increase risk of falls Signs or symptoms of abuse and/or No neglect since last visit Have you been in the hospital since your No last visit? Has dressing in place as prescribed Yes Has compression in place as prescribed N/A Has offloadiing in place as prescribed Yes Experienced any changes in pain level or No management Left Footwear Regular Shoe Right Footwear Regular Shoe Pain Scale: 0-10 Numeric Is Patient Pain Free? Yes - Nurse 1 - General Ulcer Measurement Start: 11/04/23 13:32 Freq: Status: Active Protocol: Activity Type Activity Date Activity User E-sign Co-sign Detail Recorded Client Recorded Date Recorded By Document 11/04/23 13:34 DS 1 11/04/23 13:36 DS 11/04/23 13:34 Wound Center Nurse 1 #5- R ischium Post op -Current Size (cm) - Length 5.2 -Current Size (cm) - Width 5.0 -Current Size (cm) - Depth 4.6 -Total Square Cm 26.00 -Photo Taken No -Tunneling Yes -Tunneling Position (O'clock) 1 -Tunneling Distance (cm) 6.1 -Wound Margin Distinct, Outline Attached -Granulation Amt Large (67-100%) -Granulation Quality [place] -Texture (Michelle-wound Skin Appearance) Assessed -Moisture (Michelle-wound Skin Appearance) Assessed -Color (Michelle-wound Skin Appearance) Assessed -Temperature (Michelle-wound Skin No Abnormality Appearance) (Pt Warm) -Tenderness on Palpation (Michelle-wound Yes Skin Appearance) -Ulcer Cleansing Soap and Water -Anesthetic Used 4% Lidocaine Solution - Nurse 2 - General Ulcer CM Notes Start: 11/04/23 13:32 Freq: Status: Active Protocol: Activity Type Activity Date Activity User E-sign Co-sign Detail Recorded Client Recorded Date Recorded By Document 11/04/23 13:43 GM 11/04/23 13:50 GM 11/04/23 13:43 Wound Center Nurse 2 -Time 13:43 -Correct Patient Yes -Correct Side, Site, Position Yes -Correct Procedure Yes -Procedure Performed Yes -Type of Procedure Debridement -Clinical Debridement Muscle / Fascia -Tissue Removed Muscle -Post Debridement (cm) - Length 5.4 -Post Debridement (cm) - Width 6.0 -Post Debridement (cm) - Depth 4.0 -Total Square (Post) (cm) 32.40 -Area of Debridement (cm) - Length 5.4 -Area of Debridement (cm) - Width 6.0 -Total Square (Area) (cm) 32.40 -Tunneling Yes -Tunneling Position (O'clock) 1 -Tunneling Distance (cm) 7.0 -Undermining/Tunneling No -Circular Undermining No -Wound/Ulcer Outcome Not Healed -Ulcer Cleansing Rinsed/ Irrigated with Saline -Foul Odor after Cleansing No -Bioengineered Tissue No -Bleeding Controlled with Pressure,Silver Nitrate -Treatment Response Procedure Tolerated Well -Debridement - Muscle / Fascia, 1st Yes 20sq cm -Debridement, Muscle/Fascia, ea addt'l 1 20sq cm or part thereof Pain Scale: 0-10 Numeric Is Patient Pain Free? Yes - Nurse 3 - General Ulcer D/C NN Start: 11/04/23 13:32 Freq: Status: Active Protocol: Activity Type Activity Date Activity User E-sign Co-sign Detail Recorded Client Recorded Date Recorded By Document 11/04/23 13:59 DS 1 11/04/23 14:00 DS 11/04/23 13:59 Wound Care Center Nurse 3 #5- R ischium Post op -Ulcer Cleansing Rinsed/ Irrigated with Saline -Other Dressing DAKINS MOISTENED GAUZE -Primary Dressing Covered/Secured with Dry Gauze,Dry Gauze & Roll Gauze,Secured with Tape Treatment Response Procedure Tolerated Well Pain Scale: 0-10 Numeric Is Patient Pain Free? Yes WC - Visit Discharge Discharge Condition Stable Ambulatory Status Wheelchair Transportation Private Auto Medication Reconcilliation completed & No provided to patient/care provider Clinical Summary of Care Provided Yes Assessment/Plan Assessment/Plan (1) Right ischial pressure sore, stage 4: CODE(S): L89.314 - Pressure ulcer of right buttock, stage 4 (2) Osteomyelitis of right side of pelvis: CODE(S): M86.9 - Osteomyelitis, unspecified (3) Smoker: CODE(S): F17.200 - Nicotine dependence, unspecified, uncomplicated (4) Wheelchair dependent: CODE(S): Z99.3 - Dependence on wheelchair PLAN: Plan Wound care - Dakins 0.25% moistened gauze topped by ABD/ 1-2 times per day and as needed. They have home health to help assist with his dressing changes. Operative soft tissue cultures from 08/26/23 positive for Serratia marcescens, Staphylococcus capitis, and Corynebacterium striatum. Operative bone cultures from 08/26/23 positive for Serratia marcescens and Corynebacterium striatum. He was discharged home on Augmentin. That is not sensitive to these bacteria. Will refer him to ID for further evaluation of his positive bone cultures, but he does not have an appointment with Dr. Freedman until October. I will start to treat his cultures with Doxycycline and Levaquin. He initially was not going to take the Levaquin due to all the potential side effects, but he changed his mind and has been tolerating it well. Prealbumin 08/27/23 - 21.3 Operative tissue cultures from 04/28/22 were positive for MSSA and Cutibacterium acnes. Bone cultures positive for MSSA and Corynebacterium striatum. He completed Augmentin. He was seen in the ED on 05/02/22 because of a couple falls he experienced since his surgery. CT of his pelvis showed some bony disruption at the level of the inferior pubic ramus suggests a mild osteomyelitis. Prealbumin 13.4 on 04/29/22. Anticipate increased metabolic demands from the infection. Encourage nutritional supplementation with protein to help the healing process. A wound culture was obtained on 07/14/22, which was positive for Staphylococcus aureus and was treated with Augmentin. Wound culture obtained 11/10/22 which was positive for MSSA and he completed the Augmentin. Wound culture obtained 04/06/23 which was positive for Staphylococcus aureus, Corynebacterium striatum, and Enterococcus faecalis. He is being treated with Augmentin, which he just refilled. Patient had a diverting colostomy on 11/21/22. The diversion of the stool has made a noticeable difference in the appearance of the ulcer. Encouraged increased protein intake to help with wound healing. Discussed supplemental protein. Patient states that he stopped smoking after his wound care visit on 05/19/23. He continues to deny smoking. Stressed importance of not smoking how how it impacts wound healing and potential future surgeries, including flaps. He has a new wheelchair and cushion. Follow up [address] Nayak.
--- NOTE | 2023-11-04 21:52 | CON.PCM.ID_ITS ---
Assessment & Plan Assessment/Plan (1) Paraplegic spinal paralysis: (2) Right ischial pressure sore, stage 4: PLAN: Reviewed recent labs and micro. Referral to plastic surgery pending. Stable off abx. Ongoing urinary incontinence is likely contributing to poor healing, and he is to see urology soon. At this point, will cont to monitor off of abx. Return to clinic as needed, d/w primary team, thank you for this referral. HPI Consult Data Date of Consult: 11/04/23 HPI Narrative Reason for Consultation: wound infection HPI Narrative: JORGE LINDSEY, is a 68 M with h/o paraplegic, copd, on O2, following at [facility] for R ischial wound, present since 2021. Had surgical debridement in the past, some courses of po abx. His reports most recently was on po doxy and levaquin for about 10 days, course completed about 2 weeks ago. Wound is stable, but concern for ongoing breakdown related to urinary incontinence. No pain, no fever. Feeling ok at baseline today. Full ROS performed and neg except as noted above. [facility] Medical History Other acute postprocedural pain Paraplegic spinal paralysis History of pressure ulcer Wears glasses Thyroid disease Arthritis Uses wheelchair High cholesterol Gastric reflux COPD (chronic obstructive pulmonary disease) Hx of fracture of arm Hx of head injury Bedridden Smoker Right ischial pressure sore, stage 4 Home Medications ?Medication ?Instructions ?Recorded ?Last Taken ?Type baclofen 10 mg tablet 15 mg PO TID spasm 12/17/17 04/28/22 06:30 History levothyroxine 125 mcg tablet 125 mcg PO DAILY 12/17/17 08/26/23 06:00 History tamsulosin 0.4 mg capsule 0.4 mg PO BID 12/17/17 08/26/23 06:00 History icosapent ethyl 1 gram capsule 2 g PO BID cholesterol 02/08/22 04/27/22 22:00 History (Vascepa) acetaminophen 650 mg 1,300 mg PO Q8H PRN Pain 04/25/22 Unknown History tablet,extended release esomeprazole magnesium 40 mg 40 mg PO DAILY 06/16/22 08/26/23 06:00 History capsule,delayed release (Nexium) sodium hypochlorite 0.25 % See Rx Instructions .Route 05/26/23 Unknown Rx solution (HySept) .COMPLEX #473 mL L.acidophil,salivari-Bifido 1 cap PO DAILY #30 caps 08/27/23 Unknown Rx bifidum-Strep thermoph 175 mg capsule (Acidophilus Probiotic Blend) amoxicillin 500 mg-potassium 1 tab PO TID 10 days #30 tabs 08/27/23 Unknown Rx clavulanate 125 mg tablet (Augmentin) oxycodone-acetaminophen 5 mg-325 1 tab PO BID PRN pain (scale score 08/27/23 Unknown Rx mg tablet (Percocet) 7-10) 5 days #10 tabs L.acidophil,salivari-Bifido 1 cap PO DAILY 30 days #30 caps 09/21/23 Unknown Rx bifidum-Strep thermoph 175 mg capsule (Acidophilus Probiotic Blend) doxycycline hyclate 100 mg capsule 100 mg PO BID 14 days #28 caps 09/21/23 Unknown Rx levofloxacin 500 mg tablet 500 mg PO DAILY 21 days #21 tabs 09/21/23 Unknown Rx Allergy/AdvReac Type Severity Reaction Status Date / Time Environmental Allergies: Allergy NEEDS Verified 08/26/23 10:25 Uncoded (dust) FOLLOW-UP house dust Allergy Other Verified 08/26/23 10:25 pollen extracts Allergy NEEDS Verified 08/26/23 10:25 FOLLOW-UP Surgical History (Updated 09/04/23 @ 00:01 by Haylie Olivas) S/P colostomy History of back surgery Hx of neck surgery Hx of spinal surgery Social History Smoking Status: Former smoker Physical Exam Const alert and no apparent distress General Appearance: cooperative HEENT normocephalic and head/scalp atraumatic Eyes PERRL and EOMs intact bilaterally Neck supple and No nodes Resp normal air movement and clear to auscultation bilaterally Auscultation: diminished lung sounds Cardio regular rate and regular rhythm GI soft to palpation, non-tender and non-distended Extremity General Extremity: Negative for edema Skin Skin Narrative: reviewed most recent wound photo Neuro CN's II-XII intact bilaterally Neuro Narrative: paraplegic Lab / Micro Data Attestation: I reviewed the patient's lab results.
[2023-11-23 13:14] VITALS: BP 110/72; PULSE 90; RESP 20; TEMP 36.8; BMI 35.5
--- NOTE | 2023-11-23 16:46 | HP.PCM_ITS ---
History of Present Illness Date of Service: 11/23/23 Chief Complaint: Right ischial pressure sore, Stage IV. History of Wound: This is a 68-year-old white male who presented to the wound healing center with complaints of pressure ulcer to right buttock area with extension to the right ischial bone. This started in October,. Patient's was treating with OTC creams and keeping area clean. The ulcer starting increasing in size and went to the Emergency Department on 02/08/22. CT showed subcutaneous and deep soft tissue involvement and possible early abscess formation. The bone was not addressed. The patient has very limited mobility as a result of a prior spine injury/surgery. He utilizes a wheelchair at all times. He has not been using his billy lift at home to transfer but has been using a board to slide himself from his bed to chair at home. He sits in his wheelchair almost all day, not really able to change positions. They finally obtained a low air loss overlay to their regular mattress at home. A roho cushion was ordered for his wheelchair. Patient is a former smoker, he quit early 2023. Surgery 04/28/22 - Excision right ischial pressure sore, Stage IV, with partial ostectomy for osteomyelitis. Size of wound 8 x 7 x 4.5 cm. Operative tissue cultures positive for MSSA and Cutibacterium acnes. Bone cultures positive for MSSA and Corynebacterium striatum. He is being treated with Augmentin. Pathology from surgery 04/28/22 showed chronic reparative and reactive change. No evidence of acute osteomyelitis. He had a diverting colostomy placed on 11/21/[address] Romero. Surgery 08/26/23 - Excision recurrent right ischial pressure sore, Stage IV, with partial ostectomy for osteomyelitis. Discharged home on 08/27/23. Pathology right ischial pressure sore soft tissue showed focal ulceration, acute and chronic inflammation an granulation tissue reaction. Right ischial bone, partial ostectomy showed fragments of bone with chronic inflammation and reactive changes, negative for acute osteomyelitis. Operative soft tissue cultures from 08/26/23 positive for Serratia marcescens, Staphylococcus capitis, and Corynebacterium striatum. Operative bone cultures from 08/26/23 positive for Serratia marcescens and Corynebacterium striatum. He was started on Levaquin and Doxycycline until he can be seen by ID on 11/04/23. Progress of Wound: Current encounter, 23 November 2023: Patient presents today with his for evaluation. He was last treated by a former member of our practice, Dr. Messina, in July of this year with a right ischial wound excision. The bone was cultured and grew Serratia and Corynebacterium that was treated by infectious disease with Levaquin and doxycycline. The patient has completed this antibiotic regimen and there is no signs of infection at this time per the patient and his . He does have a pressure offloading bed at home. Today upon questioning regarding his immobility (this is my first time meeting the patient), the patient reports that he is not paralyzed. 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 He is not sure about the date of the surgery and he knows it was at the [facility]. He reports that the [facility] doctors said that there is nothing more they can do for him to improve his mobility. He has been able to use the walker since his surgery (he was using a walker in 2021 around the time that this wound developed on his ischium), but he has not walked in the walker for a while. I talked to him extensively about working with the physical therapist to try to get some strength back, and he is agreement with this plan and would like to try that. I also talked him about his nutrition. He was in agreement with meeting with a dietitian/primer waterproofing machine operator to optimize his ability to heal. He does have a diverting ostomy, and he does have mucus/discharge from his anus, but overall the wound has been fairly clean from the diversion. He reports that he does not smoke He recently had some labs which I reviewed today. A1c is 6, albumin is 2.7, and prealbumin is 26 [facility] Medical History Other acute postprocedural pain Paraplegic spinal paralysis History of pressure ulcer Wears glasses Thyroid disease Arthritis Uses wheelchair High cholesterol Gastric reflux COPD (chronic obstructive pulmonary disease) Hx of fracture of arm Hx of head injury Bedridden Smoker Right ischial pressure sore, stage 4 Home Medications ?Medication ?Instructions ?Recorded ?Last Taken ?Type baclofen 10 mg tablet 15 mg PO TID spasm 12/17/17 04/28/22 06:30 History levothyroxine 125 mcg tablet 125 mcg PO DAILY 12/17/17 08/26/23 06:00 History tamsulosin 0.4 mg capsule 0.4 mg PO BID 12/17/17 08/26/23 06:00 History icosapent ethyl 1 gram capsule 2 g PO BID cholesterol 02/08/22 04/27/22 22:00 History (Vascepa) acetaminophen 650 mg 1,300 mg PO Q8H PRN Pain 04/25/22 Unknown History tablet,extended release esomeprazole magnesium 40 mg 40 mg PO DAILY 06/16/22 08/26/23 06:00 History capsule,delayed release (Nexium) sodium hypochlorite 0.25 % See Rx Instructions .Route 05/26/23 Unknown Rx solution (HySept) .COMPLEX #473 mL L.acidophil,salivari-Bifido 1 cap PO DAILY #30 caps 08/27/23 Unknown Rx bifidum-Strep thermoph 175 mg capsule (Acidophilus Probiotic Blend) amoxicillin 500 mg-potassium 1 tab PO TID 10 days #30 tabs 08/27/23 Unknown Rx clavulanate 125 mg tablet (Augmentin) oxycodone-acetaminophen 5 mg-325 1 tab PO BID PRN pain (scale score 08/27/23 Unknown Rx mg tablet (Percocet) 7-10) 5 days #10 tabs L.acidophil,salivari-Bifido 1 cap PO DAILY 30 days #30 caps 09/21/23 Unknown Rx bifidum-Strep thermoph 175 mg capsule (Acidophilus Probiotic Blend) doxycycline hyclate 100 mg capsule 100 mg PO BID 14 days #28 caps 09/21/23 Unknown Rx levofloxacin 500 mg tablet 500 mg PO DAILY 21 days #21 tabs 09/21/23 Unknown Rx Allergy/AdvReac Type Severity Reaction Status Date / Time Environmental Allergies: Allergy NEEDS Verified 08/26/23 10:25 Uncoded (dust) FOLLOW-UP house dust Allergy Other Verified 08/26/23 10:25 pollen extracts Allergy NEEDS Verified 08/26/23 10:25 FOLLOW-UP Surgical History S/P colostomy History of back surgery Hx of neck surgery Hx of spinal surgery Social History Smoking Status: Former smoker Vital Signs Vital Signs Vital Signs: 11/23/23 13:14 Temperature 98.3 F Temperature Source Temporal Pulse Rate 90 Respiratory Rate 20 H Blood Pressure 110/72 Blood Pressure Mean 84 Blood Pressure Source Monitor Weight Weight: 220 lb Body Mass Index (BMI) 35.5 Physical Exam Narrative Right ischial wound Measured 3 x 6 x 4 cm and tunneled 4 cm in the 12:00 direction Exposed muscle with healthy granulation tissue Const alert and oriented x3 General Appearance: cooperative Eyes EOMs intact bilaterally Resp normal respiratory effort Cardio regular rate and regular rhythm GI GI Narrative: Diverting ostomy is present Debridement Note Debridement Note Laterality: Right Type of Debridement: Excisional debridement Anesthesia Used: 4% Lidocaine Solution Depth: to muscle Percentage of wound debrided: 100 Instrument Used: 5mm curette Severity: Necrosis of Muscle Amount of bleeding with debridement: Mild Bleeding Controlled with: Pressure Patient tolerated procedure: Patient tolerated procedure well Post-Debridement Measurements and Additional Note: Post-Debridement Measurements/Treatment - Nurse 1 - General Ulcer Assessment Start: 11/04/23 13:32 Freq: Status: Active Protocol: DILCIA.NORIS Activity Type Activity Date Activity User E-sign Co-sign Detail Recorded Client Recorded Date Recorded By Document 11/04/23 13:32 DS 1 11/04/23 13:34 DS Document 11/23/23 13:14 DL [id number] 11/23/23 13:15 DL 11/04/23 11/23/23 13:32 13:14 - Today's Visit Information Type of service Follow-up Visit Follow-up Visit (Physician/CARTOON DESIGNER (Physician/CARTOON DESIGNER ) ) Arrival Mode Wheelchair Wheelchair Transfer Assistance Billy Lift Billy Lift Patient Identification Verified (Name & Yes ) Patient Requires Transmission-Based No Precautions Safety Precautions Fall Prevention Height and Weight Body Mass Index (BMI) 35.5 35.5 BMI Classification Obese Obese Vital Signs Temperature (97.8 F-99.1 F) 97.0 F L 98.3 F Temperature Source Temporal Temporal Pulse Rate (60-100) 74 90 Pulse Location Monitor Monitor Respiratory Rate (12-18) 18 20 H Respiratory rate source Observation Observation Oxygen Delivery Method Room Air Blood Pressure (90/60-120/80) 87/44 L 110/72 Blood Pressure Mean 58 84 Source Monitor Monitor Position Left Lateral Blood Pressure Location Right Arm History Since Last Visit- (Skip if this is Patient's initial visit) Have you changed medications since your No No last visit? Any new allergies or adverse reactions No No Had a fall/change in ADL's that may No No increase risk of falls Signs or symptoms of abuse and/or No No neglect since last visit Have you been in the hospital since your No No last visit? Has dressing in place as prescribed Yes Yes Has compression in place as prescribed N/A N/A Has offloadiing in place as prescribed Yes Yes Experienced any changes in pain level or No No management Left Footwear Regular Shoe Right Footwear Regular Shoe Pain Scale: 0-10 Numeric Is Patient Pain Free? Yes Yes WC - Nurse 1 - General Ulcer Measurement Start: 11/04/23 13:32 Freq: Status: Active Protocol: Activity Type Activity Date Activity User E-sign Co-sign Detail Recorded Client Recorded Date Recorded By Document 11/04/23 13:34 DS 1 11/04/23 13:36 DS Document 11/23/23 13:14 DL [id number] 11/23/23 13:15 DL 11/04/23 11/23/23 13:34 13:14 Wound Center Nurse 1 #5- R ischium Post op -Current Size (cm) - Length 5.2 6 -Current Size (cm) - Width 5.0 2.8 -Current Size (cm) - Depth 4.6 4 -Total Square Cm 26.00 16.8 -Photo Taken No Yes -Tunneling Yes -Tunneling Position (O'clock) 1 -Tunneling Distance (cm) 6.1 -Exudate Amt Medium -Exudate Type Serosanguineous -Wound Margin Distinct, Distinct, Outline Outline Attached Attached -Granulation Amt Large (67-100%) Large (67-100%) -Granulation Quality [place] Red -Necrosis Amt None Present (0 %) -Structure Exposed Bone -Texture (Michelle-wound Skin Appearance) Assessed Scarring -Moisture (Michelle-wound Skin Appearance) Assessed Maceration -Color (Michelle-wound Skin Appearance) Assessed No Abnormality -Temperature (Michelle-wound Skin No Abnormality No Abnormality Appearance) (Pt Warm) (Pt Warm) -Tenderness on Palpation (Michelle-wound Yes No Skin Appearance) -Ulcer Cleansing Soap and Water Soap and Water -Foul Odor after Cleansing No -Anesthetic Used 4% Lidocaine 4% Lidocaine Solution Solution DILCIA - Nurse 2 - General Ulcer CM Notes Start: 11/04/23 13:32 Freq: Status: Active Protocol: Activity Type Activity Date Activity User E-sign Co-sign Detail Recorded Client Recorded Date Recorded By Document 11/04/23 13:43 GM 11/04/23 13:50 GM Document 11/23/23 13:27 [id number] 11/23/23 13:35 11/04/23 11/23/23 13:43 13:27 Wound Center Nurse 2 #5- R ischium Post op -Time 13:43 13:28 -Correct Patient Yes Yes -Correct Side, Site, Position Yes Yes -Correct Procedure Yes Yes -Procedure Performed Yes Yes -Type of Procedure Debridement Debridement -Clinical Debridement Muscle / Fascia Muscle / Fascia -Tissue Removed Muscle Muscle,Fascia -Post Debridement (cm) - Length 5.4 3.0 -Post Debridement (cm) - Width 6.0 6.0 -Post Debridement (cm) - Depth 4.0 4.0 -Total Square (Post) (cm) 32.40 18.00 -Area of Debridement (cm) - Length 5.4 3.0 -Area of Debridement (cm) - Width 6.0 6.0 -Total Square (Area) (cm) 32.40 18.00 -Tunneling Yes No -Tunneling Position (O'clock) 1 -Tunneling Distance (cm) 7.0 -Undermining/Tunneling No Yes -Undermining/Tunneling Starts (O'clock 12 ) -Maximum Distance (cm) 4 -Circular Undermining No No -Wound/Ulcer Outcome Not Healed Not Healed -Ulcer Cleansing Rinsed/ Rinsed/ Irrigated with Irrigated with Saline Saline -Foul Odor after Cleansing No No -Bioengineered Tissue No No -Bleeding Controlled with Pressure,Silver Pressure Nitrate -Treatment Response Procedure Procedure Tolerated Well Tolerated Well -Offloading No -Pressure Reduction Wheelchair cushion -Debridement - Muscle / Fascia, 1st Yes Yes 20sq cm -Debridement, Muscle/Fascia, ea addt'l 1 20sq cm or part thereof Pain Scale: 0-10 Numeric Is Patient Pain Free? Yes Yes DILCIA - Nurse 3 - General Ulcer D/C NN Start: 11/04/23 13:32 Freq: Status: Active Protocol: Activity Type Activity Date Activity User E-sign Co-sign Detail Recorded Client Recorded Date Recorded By Document 11/04/23 13:59 DS 1 11/04/23 14:00 DS Document 11/23/23 13:51 DL [id number] 11/23/23 13:53 DL 11/04/23 11/23/23 13:59 13:51 Wound Care Center Nurse 3 #5- R ischium Post op -Ulcer Cleansing Rinsed/ Rinsed/ Irrigated with Irrigated with Saline Saline -Foul Odor after Cleansing No -Other Dressing DAKINS DAKINS MOISTENED GAUZE -Primary Dressing Covered/Secured with Dry Gauze,Dry Dry Gauze, Gauze & Roll Secured with Gauze,Secured Tape with Tape -Other Covering abd Treatment Response Procedure Procedure Tolerated Well Tolerated Well Pain Scale: 0-10 Numeric Is Patient Pain Free? Yes Yes WC - Visit Discharge Discharge Condition Stable Stable Ambulatory Status Wheelchair Wheelchair Transportation Private Auto Private Auto Medication Reconcilliation completed & No provided to patient/care provider Clinical Summary of Care Provided Yes Facility Type Home Health Orders Sent Yes Charges/Coding Visit Charges Office Visits / Consults: 98871 OV L4 Est 30min (with 25 modifier ) Procedures Integumentary 114x: [id number] Exc tr-ext b9+[place] 2.1-3cm/< Assessment/Plan Assessment/Plan (1) Right ischial pressure sore, stage 4: CODE(S): L89.314 - Pressure ulcer of right buttock, stage 4 PLAN: I talked the patient extensively about working with physical therapy on improving his mobility. I have ordered a physical therapy referral to get him stronger send maybe he can start walking in the walker again. I have also ordered a dietitian consult/primer waterproofing machine operator consult and we will have him meet with him on the same date is following wound care center appointment in 2 weeks (follow-up with us in 2 weeks). -We are working on getting the [facility] records about his spine surgery and his prognosis. There is limited information in the notes from our system (I reviewed this extensively on clinisync also and there was limited information about his immobility and why he is not moving well). Before considering any reconstructive options, and need to review more clinical information about him, and therefore the notes from his spine surgery will be quite important. I will review them for his next appointment. -I reviewed with the patient importance of pressure offloading. He will try to not lay on the side with the wound. In the meantime they will continue Dakin's wet-to-dry dressings twice daily, and I will see him in 2 weeks. (2) Right ischial pressure sore: CODE(S): L89.319 - Pressure ulcer of right buttock, unspecified stage
--- NOTE | 2023-11-25 13:22 | WC ---
PHOTO ABD CLUSTER 11/23/23
== END 2023-11-28 23:59 | disposition home or self-care (01) ==
LOC: WC 13:00
PROVIDERS: PCP Family Medicine; Referring Provider Physician Assistant; Visit Provider Surgery Plastic and Reconstructive Surgery
DX: L89.314 Pressure ulcer of right buttock, stage 4 (principal); G82.20 Paraplegia, unspecified; M86.8X8 Other osteomyelitis, other site; J44.9 Chronic obstructive pulmonary disease, unspecified; R32 Unspecified urinary incontinence; E78.00 Pure hypercholesterolemia, unspecified; Z99.3 Dependence on wheelchair; Z79.2 Long term (current) use of antibiotics; Z99.81 Dependence on supplemental oxygen; Z79.899 Other long term (current) drug therapy; Z87.891 Personal history of nicotine dependence
CPT/HCPCS: 11043; 11046

== ENCOUNTER 2023-12-23 13:45 | Outpatient (RCR) | payer BC, MEDICARE, SELFPAY ==
[2023-11-29 00:23] VITALS: BP 154/105; PULSE 90; RESP 18; TEMP 35.9; BMI 35.5
[2023-12-07 13:40] VITALS: BP 117/63; PULSE 88; RESP 16; TEMP 36.6; BMI 35.5
[2023-12-23 13:57] VITALS: BP 117/69; PULSE 89; RESP 18; TEMP 36.6; BMI 35.5
== END 2023-12-28 23:59 | disposition home or self-care (01) ==
LOC: WC 13:45
PROVIDERS: PCP Family Medicine; Referring Provider Physician Assistant; Visit Provider Surgery Plastic and Reconstructive Surgery
DX: L89.314 Pressure ulcer of right buttock, stage 4 (principal); Z87.891 Personal history of nicotine dependence; Z79.899 Other long term (current) drug therapy; Z98.890 Other specified postprocedural states; Z87.39 Personal history of other diseases of the musculoskeletal system and connective tissue; Z99.3 Dependence on wheelchair
CPT/HCPCS: 11043; 11046; 97802

== ENCOUNTER 2023-12-25 17:36 | Emergency (ER) | payer BC, MEDICARE, SELFPAY ==
[2023-12-25 17:37] VITALS: BP 119/76; PULSE 83; RESP 16; TEMP 36.8; O2SAT 95
[2023-12-25 19:07] VITALS: BP 124/81; PULSE 84; RESP 16; O2SAT 97
--- NOTE | 2023-12-25 20:34 | EDS_ITS ---
HPI HPI - Female History of Present Illness Chief Complaint: Benson C/O [facility] Medical History Other acute postprocedural pain Paraplegic spinal paralysis History of pressure ulcer Wears glasses Thyroid disease Arthritis Uses wheelchair High cholesterol Gastric reflux COPD (chronic obstructive pulmonary disease) Hx of fracture of arm Hx of head injury Bedridden Smoker Right ischial pressure sore, stage 4 Home Medications ?Medication ?Instructions ?Recorded ?Last Taken ?Type baclofen 10 mg tablet 15 mg PO TID spasm 12/17/17 04/28/22 06:30 History levothyroxine 125 mcg tablet 125 mcg PO DAILY 12/17/17 08/26/23 06:00 History tamsulosin 0.4 mg capsule 0.4 mg PO BID 12/17/17 08/26/23 06:00 History icosapent ethyl 1 gram capsule 2 g PO BID cholesterol 02/08/22 04/27/22 22:00 History (Vascepa) acetaminophen 650 mg 1,300 mg PO Q8H PRN Pain 04/25/22 Unknown History tablet,extended release esomeprazole magnesium 40 mg 40 mg PO DAILY 06/16/22 08/26/23 06:00 History capsule,delayed release (Nexium) sodium hypochlorite 0.25 % See Rx Instructions .Route 05/26/23 Unknown Rx solution (HySept) .COMPLEX #473 mL L.acidophil,salivari-Bifido 1 cap PO DAILY #30 caps 08/27/23 Unknown Rx bifidum-Strep thermoph 175 mg capsule (Acidophilus Probiotic Blend) amoxicillin 500 mg-potassium 1 tab PO TID 10 days #30 tabs 08/27/23 Unknown Rx clavulanate 125 mg tablet (Augmentin) oxycodone-acetaminophen 5 mg-325 1 tab PO BID PRN pain (scale score 08/27/23 Unknown Rx mg tablet (Percocet) 7-10) 5 days #10 tabs L.acidophil,salivari-Bifido 1 cap PO DAILY 30 days #30 caps 09/21/23 Unknown Rx bifidum-Strep thermoph 175 mg capsule (Acidophilus Probiotic Blend) doxycycline hyclate 100 mg capsule 100 mg PO BID 14 days #28 caps 09/21/23 Unknown Rx levofloxacin 500 mg tablet 500 mg PO DAILY 21 days #21 tabs 09/21/23 Unknown Rx Allergy/AdvReac Type Severity Reaction Status Date / Time Environmental Allergies: Allergy NEEDS Verified 12/25/23 17:38 Uncoded (dust) FOLLOW-UP house dust Allergy Other Verified 12/25/23 17:38 pollen extracts Allergy NEEDS Verified 12/25/23 17:38 FOLLOW-UP Surgical History S/P colostomy History of back surgery Hx of neck surgery Hx of spinal surgery Social History Smoking Status: Former smoker EXAM Physical Exam Const Vital Signs: 12/25/23 17:37 12/25/23 19:07 Temperature 98.3 F Temperature Source Temporal Pulse Rate 83 84 Respiratory Rate 16 16 Blood Pressure 119/76 124/81 H Blood Pressure Mean 90 95 Pulse Ox 95 97 Oxygen Delivery Method Room Air Room Air MDM MDM MDM Narrative Medical decision making narrative: HISTORY OF PRESENT ILLNESS: 68-year-old male presents with concern for suprapubic catheter being torn apart notes it was stuck in his wheelchair will and it tore. Wants to get his suprapubic catheter replaced. REVIEW OF SYSTEMS: Pertinent positives: Suprapubic catheter issue Pertinent negatives: Fever, vomiting, abdominal pain PHYSICAL EXAM: Nursing triage notes reviewed, Vital signs reviewed Constitutional: please see mdm Lungs: Clear to auscultation, No wheezing or rales. No increased work of breathing, no conversational dyspnea, no accessory muscle use, no nasal flaring. No respiratory distress noted Heart: Regular rate and rhythm, No murmurs, No rubs and No gallops, 2+ distal pulses (radial, femoral, posterior tibial) in all extremities Abdomen: Ostomy site intact, abdomen soft : No CVAT, suprapubic catheter site clean dry intact no fluctuance induration Extremities: Atrophic bilateral lower extremities MEDICAL DECISION MAKING: Chief Complaint: Benson complaint, superior cath issue Factors affecting care: Paraplegia, spinal cord injury, neurogenic bladder, chronic suprapubic Benson catheterization MDM Narrative: Suprapubic catheter had already come out spontaneously. This was replaced with 14 [place] Benson catheter. Area was cleansed with topical chlorhexidine. Sterile gloves were used. Patient was placed in supine position. Benson was advanced slowly and met no resistance. Urine output was noted upon placement. Patient tolerated procedure well. Patient was given prophylactic Keflex next 3 days and he was told to follow-up with his urologist at the next available appointment. The patient and/or family, caregivers express understanding. The patient and/or family, caregivers agrees with the plan. Shared decision making: I will have a discussion with the patient and or visitors regarding risk/benefits of further testing or admission. They will be made aware of of the risk/benefits inherent in this decision they will be given the opportunity to voice understanding. Total critical care time today provided was at least 0 minutes. This excludes separately billable procedures. Critical care time (if documented) is secondary to the patient having high probability of clinically significant/life threatening deterioration in the patient's condition which required my urgent intervention. Impression: 1. Suprapubic catheter malfunction 2. Suprapubic catheter replacement Dispo: Discharge home This note was generated with xzoops dictation software. It may contain incorrect words, spelling, and punctuation that were not noted in review of the chart prior to signing. Discharge Plan Triage Chief Complaint: Benson C/O ED Provider: Matthias Castillo Dx/Rx/DC Orders Prescriptions: No Action tamsulosin 0.4 MG capsule 0.4 mg PO BID baclofen 10 MG tablet 15 mg PO TID Patient Comments: 1.5 TABS = 15 MG TID levothyroxine 125 MCG tablet 125 mcg PO DAILY icosapent ethyl [Vascepa] 1 gram Capsule 2 g PO BID acetaminophen 650 mg Tablet Extended Release 1,300 mg PO Q8H PRN (Reason: Pain) esomeprazole magnesium [Nexium] 40 mg Capsule,Delayed Release(Dr/Ec) 40 mg PO DAILY amoxicillin-pot clavulanate [Augmentin] 500-125 mg tablet 1 tab PO TID 10 Days Qty: 30 2RF L.acidoph,saliva-B.bif-S.therm [Acidophilus Probiotic Blend] 175 mg capsule 1 cap PO DAILY Qty: 30 0RF oxycodone-acetaminophen [Percocet] 5-325 mg tablet 1 tab PO BID PRN (Reason: pain (scale score 7-10)) 5 Days Qty: 10 0RF Rx Instructions: 10 tabs (ten) L.acidoph,saliva-B.bif-S.therm [Acidophilus Probiotic Blend] 175 mg capsule 1 cap PO DAILY 30 Days Qty: 30 1RF levofloxacin 500 mg tablet 500 mg PO DAILY 21 Days Qty: 21 1RF doxycycline hyclate 100 mg capsule 100 mg PO BID 14 Days Qty: 28 1RF HySept 0.25 % solution See Rx Instructions .ROUTE .COMPLEX Qty: 473 1RF Dose Instruction: APPLY ONE TIME A DAY FOR 30 DAYS Rx Instructions: APPLY ONE TIME A DAY FOR 30 DAYS Primary Care Provider: Brian Zimmerman Referrals: Brian Zimmerman MD [Primary Care Provider] - Print Language: Syriac
[2023-12-25 21:07] VITALS: BP 130/76; PULSE 94; RESP 17; O2SAT 97
[2023-12-25 21:24] VITALS: BP 130/76; PULSE 94; RESP 18; TEMP 36.6; O2SAT 97
== END 2023-12-25 21:34 | disposition home or self-care (01) ==
PROVIDERS: Emergency Provider Emergency Medicine; PCP Family Medicine; Visit Provider Emergency Medicine
DX: T83.011A Breakdown (mechanical) of indwelling urethral catheter, initial encounter (principal); G82.20 Paraplegia, unspecified; J44.9 Chronic obstructive pulmonary disease, unspecified; Z87.891 Personal history of nicotine dependence; X58.XXXA Exposure to other specified factors, initial encounter
CPT/HCPCS: 99282; A4216

== ENCOUNTER 2024-01-13 16:33 | Emergency (ER) | payer BC, MEDICARE, SELFPAY ==
[2024-01-13 16:34] VITALS: BP 147/69; PULSE 99; RESP 16; TEMP 36.1; O2SAT 97
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
[2024-01-13 16:46] VITALS: BMI 33.0
--- NOTE | 2024-01-13 17:41 | ED.RN ---
Dr. Harrell bedside to replace suprapubic catheter
== END 2024-01-13 18:06 | disposition home or self-care (01) ==
PROVIDERS: Emergency Provider Emergency Medicine; PCP Family Medicine; Visit Provider Emergency Medicine
DX: T83.091A Other mechanical complication of indwelling urethral catheter, initial encounter (principal); J44.9 Chronic obstructive pulmonary disease, unspecified; Z87.891 Personal history of nicotine dependence; X58.XXXA Exposure to other specified factors, initial encounter
CPT/HCPCS: 99282

== ENCOUNTER 2024-01-25 13:10 | Emergency (ER) | payer BC, MEDICARE, SELFPAY ==
[2024-01-25 13:10] VITALS: BP 150/80; PULSE 85; RESP 18; TEMP 36.6; O2SAT 97
--- NOTE | 2024-01-25 15:28 | EDS_ITS ---
HPI History of Present Illness Chief Complaint: Complaint Informant: patient and spouse/S.O. Narrative Narrative: 68-year-old male has a diverting suprapubic catheter and colostomy due to sacral decubitus wounds. He is having issues with the suprapubic catheter. States for the past 2 or 3 days it was not draining anything and he was feeling like his bladder was full, and he has been leaking his bed through his penis. Today at home health nurse came and irrigated it but was not able to get anything out and so sent him here to get it replaced. He denies any back pain, nausea, vomiting, fevers or chills, or other systemic symptoms. He states he just has lower abdominal discomfort because it feels like his bladder is full. Follows with Dr. Casas urology. Has had a catheter for a couple of months only. It was replaced at the end of November and then again 1 or 2 weeks ago, in the ER. Spouse states she followed up with him with Dr. Casas inquiring about a larger catheter because this happened before and he declined. [facility] Medical History Other acute postprocedural pain Paraplegic spinal paralysis History of pressure ulcer Wears glasses Thyroid disease Arthritis Uses wheelchair High cholesterol Gastric reflux COPD (chronic obstructive pulmonary disease) Hx of fracture of arm Hx of head injury Bedridden Smoker Right ischial pressure sore, stage 4 Home Medications ?Medication ?Instructions ?Recorded ?Last Taken ?Type baclofen 10 mg tablet 15 mg PO TID spasm 12/17/17 04/28/22 06:30 History levothyroxine 125 mcg tablet 125 mcg PO DAILY 12/17/17 08/26/23 06:00 History tamsulosin 0.4 mg capsule 0.4 mg PO BID 12/17/17 08/26/23 06:00 History icosapent ethyl 1 gram capsule 2 g PO BID cholesterol 02/08/22 04/27/22 22:00 History (Vascepa) acetaminophen 650 mg 1,300 mg PO Q8H PRN Pain 04/25/22 Unknown History tablet,extended release esomeprazole magnesium 40 mg 40 mg PO DAILY 06/16/22 08/26/23 06:00 History capsule,delayed release (Nexium) sodium hypochlorite 0.25 % See Rx Instructions .Route 05/26/23 Unknown Rx solution (HySept) .COMPLEX #473 mL L.acidophil,salivari-Bifido 1 cap PO DAILY #30 caps 08/27/23 Unknown Rx bifidum-Strep thermoph 175 mg capsule (Acidophilus Probiotic Blend) oxycodone-acetaminophen 5 mg-325 1 tab PO BID PRN pain (scale score 08/27/23 Unknown Rx mg tablet (Percocet) 7-10) 5 days #10 tabs L.acidophil,salivari-Bifido 1 cap PO DAILY 30 days #30 caps 09/21/23 Unknown Rx bifidum-Strep thermoph 175 mg capsule (Acidophilus Probiotic Blend) ciprofloxacin HCl 500 mg tablet 500 mg PO BID #14 TABLETS 01/25/24 Unknown Rx Allergy/AdvReac Type Severity Reaction Status Date / Time Environmental Allergies: Allergy NEEDS Verified 01/25/24 13:14 Uncoded (dust) FOLLOW-UP house dust Allergy Other Verified 01/25/24 13:14 pollen extracts Allergy NEEDS Verified 01/25/24 13:14 FOLLOW-UP Surgical History S/P colostomy History of back surgery Hx of neck surgery Hx of spinal surgery Social History Smoking Status: Former smoker ROS ROS ED Constitutional Constitutional ED: Denies chills or fever(s) Cardiovascular Cardiovascular: Denies chest pain Respiratory/Chest Respiratory/Chest: Denies dyspnea Gastrointestinal Gastrointestinal: Reports abdominal pain; Denies nausea or vomiting Genitourinary Genitourinary ED: Denies hematuria Musculoskeletal Musculoskeletal: Denies back pain EXAM Physical Exam Const Vital Signs: 01/25/24 13:10 01/25/24 16:14 01/25/24 17:00 Temperature 98 F 98 F 97.6 F L Temperature Source Oral Temporal Temporal Pulse Rate 85 85 68 Respiratory Rate 18 19 H 18 Blood Pressure 150/80 H 108/56 L 119/66 Blood Pressure Mean 103 73 83 Pulse Ox 97 98 99 Oxygen Delivery Method Room Air Room Air Room Air Positive well nourished and well developed General Appearance ED: well developed and NAD HEENT Reports moist mucous membranes normocephalic and atraumatic Eyes PERRL and EOMs intact bilaterally Neck full ROM and supple Resp normal respiratory effort GI non-distended GI Narrative: Suprapubic tenderness, states it is uncomfortable with palpation because it feels like his bladder is full. The suprapubic site is benign. It is directly below a colostomy. It is full of nonbloody brown stool. Abdomen is otherwise benign. There is no guarding or rebound. Auscultation: normoactive bowel sounds Palpation: soft no CVA tenderness Narrative: Suprapubic catheter in place, there is nonbloody urine with sediment in the tubing. After draining into the bag, it slowly refills with more nonbloody urine from the suprapubic catheter. Back/Spine no CVA tenderness General Back: other FROM Neuro oriented x3 and CN's II-XII intact bilaterally Sensorium / Orientation: awake and alert Psych mental status grossly normal MDM MDM MDM Narrative Medical decision making narrative: I sent some blood work to assess renal function especially, given that the patient suggests his catheter has not been draining for 3 days. It is normal. The catheter is flowing. I had nursing irrigate it, she states she got out whenever she put in and no more. Patient was still having symptoms she did try to do a bladder scan but the scan basically was unable to read or said nothing. I did a bedside ultrasound myself. At this point the patient is still draining in the catheter and he states that his abdomen feels better now. There is 100 cc of nonbloody urine that is cloudy in the bag. The ultrasound shows a decompressed bladder with a Benson balloon and it. For this reason, he does not need emergent changing of the catheter and his renal function is excellent. Urinalysis does indicate infection. I was hesitant to put the patient back on antibiotics, but in this situation, with the UA showing every indicator for infection, and him having symptoms without dysfunction of the catheter, my suspicion is that it is a bladder infection. He just had the catheter switched out so we are going to leave it intact and put him on the Cipro since his last culture showed Serratia marcescens but it was rare, and I do not have a recent culture even with the multiple related visits that he has had here. I am sending a new 1. Follow-up with urology. Lab Data Attestation: I reviewed the patient's lab results. Labs: Laboratory Results - last 24 hr 01/25/24 01/25/24 15:45 16:15 WBC 10.3 RBC 4.89 Hgb 13.8 Hct 42.7 MCV 87.3 MCH 28.2 MCHC 32.3 RDW Std Deviation 52.1 H RDW Coeff of Josue 16.5 H Plt Count 389 MPV 9.5 Immature Gran % (Auto) 0.600 Neut % (Auto) 65.2 Lymph % (Auto) 20.8 [place] % (Auto) 8.8 Eos % (Auto) 3.8 Baso % (Auto) 0.8 Absolute Neuts (auto) 6.7 Absolute Lymphs (auto) 2.14 Nucleated RBC % 0 Sodium 139 Potassium 4.0 Chloride 109 H Carbon Dioxide 25.0 Anion Gap 5 BUN 18 Creatinine 0.68 L Est GFR (MDRD) Af Amer 150 Est GFR (MDRD) Non-Af 124 BUN/Creatinine Ratio 26.6 H Glucose 127 H Calcium 9.3 Urine Color Yellow Urine Clarity Cloudy Urine pH 6.0 Ur Specific [employer] 1.020 Urine Protein 100 H Urine Glucose (UA) Normal Urine Ketones Negative Urine Occult Blood 250 H Urine Nitrite Positive H Urine Bilirubin Negative Urine Urobilinogen Normal Ur Leukocyte Esterase 500 H Urine RBC 10-25 SEEN Urine WBC 25-50 SEEN Ur Squamous Epith Cells Not Reportable Urine Bacteria 2+ WBC Casts 0-5 SEEN Urine Mucus 1+ Discharge Plan Triage Chief Complaint: Complaint ED Provider: Kit Harris Dx/Rx/DC Orders Clinical Impression: Acute lower UTI Instructions: ED Urinary Tract Infections in Men Prescriptions: New ciprofloxacin HCl 500 mg tablet 500 mg PO BID Qty: 14 0RF Continued tamsulosin 0.4 MG capsule 0.4 mg PO BID baclofen 10 MG tablet 15 mg PO TID Patient Comments: 1.5 TABS = 15 MG TID levothyroxine 125 MCG tablet 125 mcg PO DAILY icosapent ethyl [Vascepa] 1 gram Capsule 2 g PO BID acetaminophen 650 mg Tablet Extended Release 1,300 mg PO Q8H PRN (Reason: Pain) esomeprazole magnesium [Nexium] 40 mg Capsule,Delayed Release(Dr/Ec) 40 mg PO DAILY L.acidoph,saliva-B.bif-S.therm [Acidophilus Probiotic Blend] 175 mg capsule 1 cap PO DAILY Qty: 30 0RF oxycodone-acetaminophen [Percocet] 5-325 mg tablet 1 tab PO BID PRN (Reason: pain (scale score 7-10)) 5 Days Qty: 10 0RF Rx Instructions: 10 tabs (ten) L.acidoph,saliva-B.bif-S.therm [Acidophilus Probiotic Blend] 175 mg capsule 1 cap PO DAILY 30 Days Qty: 30 1RF HySept 0.25 % solution See Rx Instructions .ROUTE .COMPLEX Qty: 473 1RF Dose Instruction: APPLY ONE TIME A DAY FOR 30 DAYS Rx Instructions: APPLY ONE TIME A DAY FOR 30 DAYS Discontinued amoxicillin-pot clavulanate [Augmentin] 500-125 mg tablet 1 tab PO TID 10 Days Qty: 30 2RF levofloxacin 500 mg tablet 500 mg PO DAILY 21 Days Qty: 21 1RF doxycycline hyclate 100 mg capsule 100 mg PO BID 14 Days Qty: 28 1RF cephalexin 500 mg capsule 500 mg PO TID Qty: 9 0RF Primary Care Provider: Brian Zimmerman Referrals: ROSARIO CASAS MD [Non-Staff] - Brian Zimmerman MD [Primary Care Provider] - Print Language: B[place] Disposition Disposition: Home, Self Care
[2024-01-25 16:06] LABS: Absolute Lymphocyte Count 2.14 X10^3/uL (0.83-4.51); Absolute Neutrophil Count 6.7 X10^3/uL (2.0-7.7); Basophil# 0.08 X10^3/uL; Basophil% 0.8 % (0-1); Eosinophil# 0.39 X10^3/uL; Eosinophils% 3.8 % (0-5); Hematocrit 42.7 % (40-54); Hemoglobin 13.8 g/dL (13.0-16.5); Lymphocyte # 2.14 X10^3/ul (0.83-4.51); Lymphocyte % 20.8 % (19-41); Mean Corp Hgb Conc 32.3 g/dL (32-36); Mean Corpuscular Hgb 28.2 pg (27.0-32.0); Mean Corpuscular Volume 87.3 fL (80-94); Mean Platelet Vol. 9.5 fl (6.2-12.0); Monocyte# 0.91 X10^3/uL; Monocyte% 8.8 % (0-10); NRBC Flagged by Analyzer 0 % (0-5); Neutrophil # 6.73 X10^3/uL (2.7-7.7); Neutrophil % 65.2 % (47-70); Platelet Count 389 K/mm3 (150-450); RBC Distribution Width CV 16.5 % (11.6-14.6); RBC Distribution Width SD 52.1 fl (35.1-43.9); Red Blood Count 4.89 M/mm3 (4.6-6.2); White Blood Count 10.3 K/mm3 (4.4-11.0)
[2024-01-25 16:14] VITALS: BP 108/56; PULSE 85; RESP 19; TEMP 36.6; O2SAT 98
[2024-01-25 16:18] LABS: Anion Gap 5 (5-15); BUN 18 mg/dL (7-18); BUN/Creat Ratio 26.6 RATIO (10-20); Calcium,Total 9.3 mg/dL (8.5-10.1); Chloride 109 mmol/L (98-107); Creatinine, Serum 0.68 mg/dL (0.70-1.30); EST Glomerular Filtration Rate 124 mL/min (>60); Est Glom Filt Rate - Afr Amer 150 mL/min (>60); Glucose 127 mg/dL (74-106); Sodium Level 139 mmol/L (136-145)
[2024-01-25 16:26] LABS: Color, Urine Yellow (Yellow); Glucose, Dipstick Normal (Normal); Ketone-Dipstick Negative (Negative); Leukocyte Esterase-Dipstick 500 /ul (Negative); Nitrite-Dipstick Positive (Negative); Occult Blood-Urine 250 /ul (Negative); Protein-Dipstick 100 mg/dl (Negative); Urine Bilirubin Dipstick Negative (Negative); Urine Clarity Cloudy (Clear); Urine Urobilinogen Normal (Normal)
[2024-01-25 16:41] LABS: Bacteria 2+ /hpf (None Seen); Mucous, Urine 1+ /hpf (<or=2+); Red Blood Cells-Urine 10-25 SEEN /hpf (0-5); White Blood Cells 25-50 SEEN /hpf (0-5); White Cell Cast 0-5 SEEN /lpf (None Seen)
[2024-01-25 17:00] VITALS: BP 119/66; PULSE 68; RESP 18; TEMP 36.4; O2SAT 99
[2024-01-25] MEDS: Ciprofloxacin 500 MG Tablet PO (17:28)
[2024-01-25 17:36] VITALS: BP 119/66; PULSE 68; RESP 18; TEMP 36.4; O2SAT 99
--- OUTSIDE RECORDS SUMMARY | 2024-01-25 19:55 | XMS RPT_ITS | CCD ---
Author Organization [facility] Care Team Providers Care Ebd Teacher Name Role Phone SENIA PEDRAZA Attending Unavailable IMCA Referring Unavailable SEFERINO CARDONA Primary Care Unavailable SENIA PEDRAZA Attending Unavailable Nathanael Cardona MD Primary Care Provider Zackery Carmona MD Unavailable [phone] Rikki Casas MD Unavailable [phone] NATHANAEL CARDONA Primary Care Unavailable RIKKI CASAS Attending NATHANAEL Shepherd Referring Unavailable NATHANAEL CARDONA Primary Care Unavailable RIKKI CASAS Attending Unavailable NATHANAEL CARDONA Primary Care Unavailable RIKKI CASAS Attending Unavailable RIKKI CASAS Admitting Unavailable Allergies Allergy Classification Reported Allergen(s) Allergy Type Date of Onset Reaction(s) Facility (2 sources) Dust; Translations: [DUST] Propensity to adverse reactions (disorder) 9 [facility] (2 sources) Mold spore; Translations: [MOLD SPORES] Propensity to adverse reactions (disorder) 9 [facility] (6 sources) House dust mite Allergy to substance 9 [facility] (6 sources) Pollen Allergy to substance 2 [facility] Medications Current Medications Medication Drug Class(es) Dates Sig (Normalized) Sig (Original) baclofen 10 mg oral tablet (6 sources) gamma-Aminobutyr ic Acid-ergic Agonist Start: 09-13-2023 baclofen (Lioresal) 10 MG tablet Take 15 tablets by mouth 3 times daily. 09/13/2023 Active esomeprazole 40 mg delayed release oral capsule (6 sources) Proton Pump Inhibitor take 1 capsule by mouth once daily esomeprazole (NexIUM) [address] capsule Take 40 mg by mouth Daily Weight. Active icosapent ethyl 1000 mg oral capsule (6 sources) Start: 08-31-2023 take 2 capsules by mouth in the morning Vascepa 1 g capsule Take 2 g by mouth in the morning and 2 g in the evening. Take with meals. 08/31/2023 Active levothyroxine sodium 0.125 mg oral tablet (6 sources) l-Thyroxine Start: 09-13-2023 End: 12-12-2023 take 1 tablet by mouth once daily in the morning levothyroxine (Synthroid, Levoxyl) 125 MCG tablet Take 125 mcg by mouth every morning. TAKE ON EMPTY STOMACH 09/13/2023 Active tamsulosin hydrochloride 0.4 mg oral capsule (6 sources) alpha-Adrenergic Daniel take 1 capsule by mouth every twenty-four hours in the morning tamsulosin (Flomax) 0.4 MG 24 hr capsule Take 0.4 mg by mouth in the morning and 0.4 mg in the evening. Active Completed/Discontinued Medications Medication Drug Class(es) Dates Sig (Normalized) Sig (Original) acetaminophen 500 mg oral tablet (2 sources) Start: 12-11-2023 End: 12-11-2023 1,000 mg, Oral, Once, On Thu12/11/23 at 1215, For 1 dose, Preprocedure, Administer 60 minutes prior to surgery. Problems Problem Classification Problem Date Documented Da te Episodic/Chronic Genitourinary symptoms and ill-defined conditions (2 sources) Unspecified urinary incontinence; Translations: [Unspecified urinary incontinence] Onset: 12-11-2023 Chronic Genitourinary symptoms and ill-defined conditions (5 sources) Retention of urine, unspecified; Translations: [Retention of urine] Onset: 06-22-2018 01-22-2024 Episodic Other diseases of bladder and urethra (3 sources) Overactive bladder; Translations: [Overactive bladder] Onset: 06-11-2018 Chronic Unclassified (2 sources) Urine Leakage; Translations: [Urine Leakage] Onset: 10-23-2023 Results Test Name Value Interpretation Reference Range Facility Office Visiton 01-22-2024 Follow-up visit [id number] Jorge Covington 1955 M Date Provider Department Center 01/22/2024 [id number] CASAS [facility] U[facility] None No family history on file Level of Service:99300 [place] OFFICE/OUTPATIENT ESTABLISHED LOW MDM 20 MIN Reason for Visit and Comments: Urinary Retention [246363] - SPT placement 12/11/23, Pt states they went to ED twice since then having SPT changed Normal [facility] Progress Noteon 01-22-2024 Progress Note Rikki valverde MD 01/22/2024 at 5:00 PM OFFICE FOLLOW-UP VISIT PATIENT NAME: Jorge Covington DATE OF : 1955 TODAY'S DATE: 01/22/2024 CHIEF COMPLAINT: Chief Complaint Patient presents with Urinary Retention SPT placement 12/11/23, Pt states they went to ED twice since then having SPT changed Subjective: Mr. Covington is a 68 y.o. male who presents to the office for follow up of trocar suprapubic cystostomy performed on 12/11/2023. The patient apparently went into [facility] on 12/25/23 (POD#14) because the catheter was malfunctioning. According to the , she said that the balloon inflation sideport apparently got cracked and the catheter was leaking. The catheter was replaced at that time. The patient went back into the emergency department on 01/13/2024 (POD#31), because the catheter that was placed on 12/25/2023 was not functioning so well. Catheter was replaced again and the current catheter is draining just fine. There has been no further problems. There is minimal fluid draining around the catheter at the skin insertion site. The patient is having no pain. Review of Systems Past Medical History: No past medical history on file. Past Surgical History: No past surgical history on file. Allergies: Dust mite extract and Pollen extract Social History: Issues identified in the H&P were noted Family History: No family history on file. Medications Prior to Admission medications Medication Sig Start Date End Date Taking? Authorizing Provider baclofen (Lioresal) 10 MG tablet Take 15 tablets by mouth 3 times daily. 09/13/23 Yes Historical Provider, esomeprazole (NexIUM) [address] capsule Take 40 mg by mouth Daily Weight. Yes Historical Provider, tamsulosin (Flomax) 0.4 MG 24 hr capsule Take 0.4 mg by mouth in the morning and 0.4 mg in the evening. Yes Historical Provider, Vascepa 1 g capsule Take 2 g by mouth in the morning and 2 g in the evening. Take with meals. 08/31/23 Yes Historical Provider, levothyroxine (Synthroid, Levoxyl) 125 MCG tablet Take 125 mcg by mouth every morning. TAKE ON EMPTY STOMACH 09/13/23 12/12/23 Historical Provider, Vitals: Ht 5' 6 (1.676 m) Wt 180 lb (81.6 kg) BMI 29.05 kg/m? Physical Exam Physical Exam Constitutional: Appearance: Normal appearance. HENT: Head: Normocephalic and atraumatic. Eyes: Extraocular Movements: Extraocular movements intact. Pulmonary: Effort: Pulmonary effort is normal. Abdominal: Comments: Skin insertion site for the suprapubic cystostomy is clean and dry. The sutures are no longer secured to the skin. There is no discharge or drainage around the catheter. 16 [place]ian suprapubic tube is in place. Musculoskeletal: General: Normal range of motion. Cervical back: Normal range of motion. Neurological: General: No focal deficit present. Mental Status: He is alert and oriented to person, place, and time. Psychiatric: Mood and Affect: Mood normal. Behavior: Behavior normal. Thought Content: Thought content normal. Judgment: Judgment normal. LABS: Radiology: Impression/Plan Jorge was seen today for urinary retention. Diagnoses and all orders for this visit: Urinary retention (Primary) Follow up if symptoms worsen or fail to improve. Ordinarily I would like to wait 6 weeks to exchange the suprapubic tube. However, this has been performed on this patient without incident. We will contact the patient's home care team and see if arrangements can be made to have them perform exchange of the suprapubic cystostomy (16 Zambian) on a monthly basis Rikki Casas MD 01/22/24 5:00 PM [facility] 36on 12-18-2023 36 S: Patient's sp antonella with [facility] nurse regarding catheter leaking where it is connected to the collection bag. B: Onset of symptoms/concern yesterday, states that taping it did not resolve the leaking. A: States there is not any leakage around the insertion site, there is still a good amount of urine draining into the bag. Denies abdominal pain, fever. She reports that leakage is where the tube is connected to the bag. R: Patient's states that they have a home health care nurse. CAC Rn advised her to contact Home Health to see if they are able to replace the catheter. Patient's verbalized understanding. No further needs at this time. Reason for Disposition [1] Catheter is broken or cracked AND [2] still works (functioning normally) Protocols used: Urinary Catheter (e.g., Benson) Symptoms and [facility] 12-11-2023 Op Note OPERATIVE NOTE Patient Name: Jorge Covington : 1955 DATE OF PROCEDURE: 12/11/2023 SURGEON: Rikki Casas MD PREOPERATIVE DIAGNOSES: Urinary incontinence POSTOPERATIVE DIAGNOSES: Urinary incontinence PROCEDURE: Cystoscopy, trocar suprapubic cystostomy ANESTHESIA: general anesthesia INDICATION FOR PROCEDURE: The patient presents with urinary incontinence that is compromising decubitus wound healing. The patient requests suprapubic cystostomy. The options had been discussed, questions were answered, and consent was obtained. FINDINGS AT PROCEDURE: Trocar suprapubic cystostomy was performed without incident. DESCRIPTION OF PROCEDURE: Under general anesthesia in the dorsal lithotomy position the patient was sterilely prepped and draped. The cystoscope was advanced into the bladder under direct vision. No urethral abnormalities had been encountered. With the water off the base of the bladder was inspected no stones were noted. Complete inspection of the bladder showed no tumors or significant mucosal abnormalities. The bladder was distended to full capacity. On the abdominal wall, in the midline 2 cm superior to the pubic symphysis, a small incision was made.. Spinal needle was passed through this area and could be seen entering into the bladder dome via the cystoscope. This was well below the colostomy and stoma appliance. Once this tract was properly identified, the [place] trocar was then passed through the same tract and could be seen entering into the bladder dome cystoscopically. At no point did any injury occurred to the trigone. The obturator of the trocar was withdrawn. A 14 Zambian catheter was advanced through the trocar. The balloon was inflated to 10 cc, the remainder of the trocar was withdrawn. The catheter could be easily irrigated. Excellent hemostasis was in place. Cystoscope was withdrawn. The suprapubic cystostomy was secured to the skin with suture. The catheter was again irrigated to confirm that the securing suture had not occluded the lumen. Dressing was applied. Catheter was connected to drainage bag. The patient was transported to the recovery area in stable condition. [facility] 36on 12-07-2023 36 error Normal [facility] Office Visiton 10-23-2023 Follow-up visit [id number] Jorge Covington 1955 M Date Provider Department Center 10/23/2023 [id number] CASAS [facility] URO None No family history on file Level of Service:57885 [place] OFFICE/OUTPATIENT NEW LOW MDM 30 MINUTES Reason for Visit and Comments: Urine Leakage [403] - Worsening incontinence - pt's states has frequency, but pt denies any other pain, issues, distress or discomfort currently Normal [facility] Progress Noteon 10-23-2023 Progress Note Rikki valverde MD 10/23/2023 at 8:20 PM UROLOGY INITIAL OFFICE VISIT PATIENT NAME: Jorge Covington DATE OF : 1955 TODAY'S DATE: 10/23/2023 Chief Complaint: Chief Complaint Patient presents with Urine Leakage Worsening incontinence - pt's states has frequency, but pt denies any other pain, issues, distress or discomfort currently HISTORY OF PRESENT ILLNESS: Mr. Covington is a 68 y.o. male who presents with incontinence. He has very severe mobility issues. He had to have a diverting colostomy because of bowel leakage over a perineal decubitus. The urine is starting to be a problem now with wound healing REVIEW OF SYSTEMS: Review of Systems Past Medical History: No past medical history on file. PastSurgical History: No past surgical history on file. CurrentMedications: Prior to Admission medications Medication Sig Start Date End Date Taking? Authorizing Provider baclofen (Lioresal) 10 MG tablet Take 15 tablets by mouth 3 times daily. 09/13/23 Yes Historical Provider, esomeprazole (NexIUM) [address] capsule Take 40 mg by mouth Daily Weight. Yes Historical Provider, levothyroxine (Synthroid, Levoxyl) 125 MCG tablet Take 125 mcg by mouth every morning. TAKE ON EMPTY STOMACH 09/13/23 12/12/23 Yes Historical Provider, tamsulosin (Flomax) 0.4 MG 24 hr capsule Take 0.4 mg by mouth in the morning and 0.4 mg in the evening. Yes Historical Provider, Vascepa 1 g capsule Take 2 g by mouth in the morning and 2 g in the evening. Take with meals. 08/31/23 Yes Historical Provider, Allergies: Dust mite extract and Pollen extract Social History: Social History Socioeconomic History Marital status: Spouse name: Not on file Number of children: Not on file Years of education: Not on file Highest education level: Not on file Occupational History Not on file Tobacco Use Smoking status: Not on file Smokeless tobacco: Not on file Substance and Sexual Activity Alcohol use: Not on file Drug use: Not on file Sexual activity: Not on file Other Topics Concern Not on file Social History Narrative Not on file Social Determinants of Health Financial Resource Strain: Not on file Food Insecurity: Not on file Transportation Needs: Not on file Physical Activity: Not on file Stress: Not on file Social Connections: Not on file Intimate Partner Violence: Not on file Housing Stability: Not on file Family History: No family history on file. PHYSICAL EXAM: VITALS: Ht 5' 6 (1.676 m) Wt 220 lb (99.8 kg) BMI 35.51 kg/m? Physical Exam Constitutional: Appearance: Normal appearance. HENT: Head: Normocephalic and atraumatic. Eyes: Extraocular Movements: Extraocular movements intact. Pulmonary: Effort: Pulmonary effort is normal. Musculoskeletal: General: Normal range of motion. Cervical back: Normal range of motion. Neurological: General: No focal deficit present. Mental Status: He is alert and oriented to person, place, and time. Psychiatric: Mood and Affect: Mood normal. Behavior: Behavior normal. Thought Content: Thought content normal. Judgment: Judgment normal. LABS: Radiology: Impression/Plan Jorge was seen today for urine leakage. Diagnoses and all orders for this visit: Urge urinary incontinence (Primary) No follow-ups on file. Options for management were discussed. Indwelling urinary catheter does carry the risk of infection and bleeding and stones, but would provide a way for him to have proper wound healing. We discussed Benson catheter versus suprapubic tube. He does have the colostomy but I think that we should be able to get access to the suprapubic region under anesthesia Will plan cystoscopy, possible trocar suprapubic cystostomy. I would not perform open suprapubic suprapubic tube placement in this gentleman We will need to get medical clearance for this procedure especially if we are to be doing this at [facility] All aspects of the procedure, along with the pros & cons of intervention and the potential associated risks & complications have been discussed with the patient. Questions have been answered, and informed consent has been obtained. Rikki Casas MD 10/23/23 8:20 PM [place] [id number] 36 [place] request an appt at the [facility]. Appt RS to 10/23/[address] Casas in [place]. [place] [id number] 36 Received message via [employer] that pt had been trying to contact office to schedule appt. Returned call and scheduled CLINICAL EXERCISE PHYSIOLOGIST appt 10/12/[address] Carmona at [facility] location. [facility] 06-14-2023 36 Name of caller: Cruz finch Contact phone number: [phone] Relationship to Patient: patient Provider: Erasmo Practice: [facility] Chief Complaint/Reason for Call: Pt called to let provider know that the medication he takes is Baclofen and he takes 10mg, 1 and half tablets 3x daily for muscle spasms in his legs. He states provider asked him to call with this information. Best time of day caller can be reached: Any Patient advised that office/PCP has 24-48 business hours to return their call: N/A [place] [id number] 36 S: pt calling CAC d/ t returning call from office B: states office called and left message for him to call. A: No notes in encounters or under lad, DI tabs of call today. Pt advised to call back when office is open on Thursday. R: pt will return call on Thursday when office is open. Reason for Disposition [1] Caller requesting NON-URGENT health information AND [2] PCP's office is the best resource Returning call from office Protocols used: Information Only Call - No [id number] [facility] CASE MANAGEMon 02-02-2019 CASE MANAGEM HNO ID: [id number] Author: Florence (Rn) VIKTOR Mullins Service: Care Management Author Type: Registered Nurse Type: Care Mgt Progress Note Filed: 02/02/2019 12:05 PM Note Text: CARE MANAGEMENT DISCHARGE NOTE SERVICE DATE: 02/02/2019 SERVICE TIME: 12:01 PM LOS: 11 days Admission Date: 01/22/2019 DISCHARGE ARRANGEMENT (list agency and phone number) correction facility: Was an expedited discharge program used? No Provider: [facility] CAREGIVER ASSESSMENT: Caregiver is ready, willing and able to meet the patient's needs as recommended by the inter-professional team? Yes Patient's transition needs and plan for meeting these needs: SNF at [facility] Does the patient have an acute stroke diagnosis, or has the patient had a stroke during this admission? No HANDOFF COMMUNICATION: Primary Care Physician: Name: Dr Nathanael Cardona Bedside nurse. Patient and Dasia. Summary of care sent to PCP Dr Cardona and [facility] TRANSPORTATION ARRANGEMENTS: Mode of Transportation: Ambulance Transportation Agency and Phone #: [facility] ( [facility] ) [phone] / [phone]. Date of Trip: 02/02/2019 Type of Service: BLS Non-emergency Is Patient Medicaid Pending: No Discussion of financial coverage occurred with Patient and Spouse . Cloth Finishing Range Back Tender Location: room 264 Destination: [facility] Financial Care Management Responsibility: None Estimated Charge: 0 Approving Chief Clerk Shelter: [place] ADDITIONAL CONTACT RESOURCES: NA Discharge written for patient to go to [facility] SNF. Pt and agreeable. Precert obtained. Ambulance transport arranged per 's request. Discussed with her possibility of out of pocket expense after billed to insurance. Ambulance scheduled for 3 PM pickle solution maker. SIGNATURE: Florence Mullins RN PATIENT NAME: Jorge Covington DATE: February 02, 2019 TIME: 12:01 PM PAGER/CONTACT #: [phone] [facility] CASE MANAGEM HNO ID: [id number] Author: Florence (Rn) VIKTOR Mullins Service: Care Management Author Type: Registered Nurse Type: Care Mgt Progress Note Filed: 02/02/2019 11:08 AM Note Text: CARE MANAGEMENT PROGRESS NOTE SERVICE DATE: 02/02/2019 SERVICE TIME: 11:08 AM LOS: 11 days IM letter given to patient on 02/02/2019. IM letter given and explained to patient. Precert obtained and pt to be discharged to [facility]. Transportation arranged for 3 PM pickle solution maker. SIGNATURE: Florence Mullins RN PATIENT NAME: Jorge Covington DATE: February 02, 2019 TIME: 11:08 AM PAGER/CONTACT #: [phone] Normal [facility] CBCon 02-02-2019 Erythrocyte distribution width (RBC) [Ratio] 17.4 % High 11.5-15.0 [facility] Comment on above: Performed By: #### C BC, CMP ####[facility] [address] [place] [address] Hematocrit (Bld) [Volume fraction] 40.7 % Normal 39.0-51.0 [facility] Comment on above: Performed By: #### C BC, CMP ####[facility] [address] [place] [address] Hemoglobin (Bld) [Mass/Vol] 13.0 g/dL Normal 13.0-17.0 [facility] Comment on above: Performed By: #### C BC, CMP ####[facility] [address] [place] [address] MCH (RBC) [Entitic mass] 30.0 pG Normal 26.0-34.0 [facility] Comment on above: Performed By: #### C BC, CMP ####[facility] [address] [place] [address] MCHC (RBC) [Mass/Vol] 31.9 g/dL Normal 30.5-36.0 [facility] Comment on above: Performed By: #### C BC, CMP ####[facility] [address] [place] [address] MCV (RBC) [Entitic vol] 94.0 fL Normal 80.0-100.0 [facility] Comment on above: Performed By: #### C BC, CMP ####[facility] [address] [place] [address] Platelet mean volume (Bld) [Entitic vol] 9.5 fL Normal 9.0-12.7 [facility] Comment on above: Performed By: #### C BC, CMP ####[facility] [address] [place], [place] [phone] Platelets (Bld) [#/Vol] 383 10*3/uL Normal 150-400 [facility] Comment on above: Performed By: #### C BC, CMP ####[facility] [address]gon2208 [phone] RBC (Bld) [#/Vol] 4.33 10*6/uL Normal 4.20-6.00 [facility] Comment on above: Performed By: #### C BC, CMP ####[facility] [address]oby9[phone] WBC (Bld) [#/Vol] 10.09 10*3/uL Normal 3.70-11.00 [facility] Comment on above: Performed By: #### C RAFAEL, CMP ####[facility] [phone] CNCOon 02-02-2019 CNCO Letter Text Normal [facility] CONSULT PROGon 02-02-2019 CONSULT PROG HNO ID: [id number] Author: Magy Orosco Service: Gastroenterology Author Type: Physician Type: Consult Progress Note Filed: 02/02/2019 3:22 PM Note Text: GASTROENTEROLOGY CONSULT PROGRESS NOTE Patient Name: Jorge Covington SERVICE DATE: February 02, 2019 SERVICE TIME: 2:05 PM ASSESSMENT 1- Esophageal dysphagia with food bolus - s/p EGD with removal 2- Esophagitis / Esophageal stenosis 3- Chronic GERD 4- Chronic constipation 5- Acute respiratory failure / COPD 6- Severe hypothyroidism ? PLAN - Follow up EGD pathology - Continue Protonix 40 mg po BID - Antireflux measures - Cut food in small pieces and chew adequately - Colace 100 mg BID / Miralax 17 grams daily - Repeat EGD in 4-6 weeks for dilation after allowing healing of esophagitis Patient seen and examined. Discussed with mid level provider. Hodges findings confirmed. Plan as outlined. No further dysphagia. Plan for discharge today. Continue Protonix twice daily. F/up in office and repeat dilation as above. Magy Orosco MD February 02, 2019 3:21 PM ___ INTERVAL HPI: Denies any recurrence of dysphagia and tolerated diet well this am. No abdominal pain, nausea or vomiting. Last stool was 01/30/19 - brown formed. Is going to be discharged to SNF today. PHYSICAL EXAM: Patient Vitals for the past 24 hrs: BP Temp Temp src Pulse Resp SpO2 Weight 02/02/19 1130 ? ? ? 81 16 ? ? 02/02/19 1120 ? ? ? 79 18 95 % ? 02/02/19 1044 99/55 36.9 ?C (98.5 ?F) Temporal 77 18 94 % ? 02/02/19 0817 ? 93 % ? 02/02/19 0813 99/58 37.2 ?C (98.9 ?F) Temporal 77 18 91 % ? 02/02/19 0730 ? ? ? 81 18 ? ? 02/02/19 0720 ? ? ? 77 18 94 % ? 02/02/19 0644 ? 99.7 kg (219 lb 12.8 oz) 02/02/19 0424 103/60 36.8 ?C (98.3 ?F) Temporal 79 20 93 % ? 02/01/19 2348 105/62 36.6 ?C (97.8 ?F) Temporal 82 20 ? ? 02/01/19 2050 99/55 36.9 ?C (98.5 ?F) Temporal 82 18 93 % ? 02/01/191954 ? ? ? 88 18 ? ? 02/01/191944 ? ? ? 88 18 94 % ? 02/01/19 1452 121/83 36.7 ?C (98 ?F) Temporal 87 18 93 % ? GENERAL: Alert AND oriented x 3. Cooperative. NAD EYES: No scleral icterus SKIN: [place] in color. No jaundice LUNGS: Scattered rhonchi CARDIAC: RRR ABDOMEN: BS x 4. Abdomen moderately distended. Non tender. No palpable masses or organomegaly. No guarding or rebound tenderness elicited EXTREMITIES: No upper or lower extremity edema ? MEDICATIONS: Current Facility-Administered Medications Medication Dose Route Frequency - acetaminophen 1,000 mg tab(s) (TYLENOL) 1,000 mg ORAL q 6 H PRN - polyethylene glycol 3350 17 g packet (MIRALAX, GLYCOLAX) 17 g ORAL DAILY - senna 8.6 mg tab(s) (SENOKOT) 8.6 mg ORAL BID PRN - baclofen 10 mg tab(s) (LIORESAL) 10 mg ORAL TID - nicotine 14 mg/24 hr 1 Patch (NICODERM) 1 Patch TRANSDERMAL DAILY - NaCl 0.9% 3-5 mL 3-5 mL INTRAVENOUS q 12 H - ipratropium-albuterol 3 mL nebulizer solution (DUONEB) 3 mL INHALATION q 4 H while awake - ondansetron orally disintegrating 4 mg tab(s) (ZOFRAN ODT) 4 mg ORAL q 6 H PRN Or - ondansetron (PF) 4 mg injection (ZOFRAN) 4 mg INTRAVENOUS q 6 H PRN - nicotine -- REMOVE patch OTHER DAILY And - nicotine - verify patch OTHER q 8 H - fenofibrate 200 mg cap(s) (LOFIBRA) 200 mg ORAL DAILY WITH BREAKFAST - oxybutynin XL 5 mg tab(s) (DITROPAN XL) 5 mg ORAL DAILY - heparin 5,000 Units injection 5,000 Units SUBCUTANEOUS q 12 H - docusate 100 mg oral liquid (DIOCTO, COLACE) 100 mg ORAL BID - levothyroxine 125 mcg tab(s) (SYNTHROID) 125 mcg ORAL DAILY (6 AM) - pantoprazole DR 40 mg tab(s) (PROTONIX) 40 mg ORAL BID AC (0600/1600) LABS: CBC, Coags, BMP, Mg, Phos Recent Labs 02/02/19 04202/01/19 0432 01/31/19 0416 WBC 10.09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 MEDICATIONS: Prior to Admission Medications: Medications Prior to Admission: baclofen (LIORESAL) 10 mg tablet Take 15 mg by mouth three times daily. Disp: Rfl: Unknown at Unknown time fenofibrate nanocrystallized (TRICOR) 145 mg tablet Take 145 mg by mouth once daily. Disp: Rfl: Unknown at Unknown time esomeprazole (NEXIUM) 40 mg capsule Take 40 mg by mouth DAILY (6 AM). Disp: Rfl: Unknown at Unknown time tamsulosin ER (FLOMAX) 0.4 mg cap Take 0.4 mg by mouth twice daily. Disp: Rfl: Unknown at Unknown time [DISCONTINUED] acetaminophen (ARTHRITIS PAIN RELIEF) 650 mg CR tablet Take 650 mg by mouth every 8 hours as needed. Disp: Rfl: Unknown at Unknown time [DISCONTINUED] baclofen (LIORESAL) 10 mg tablet Take 15 mg by mouth three times daily. Disp: Rfl: Unknown at Unknown time [DISCONTINUED] diphenhydrAMINE (BENADRYL) 25 mg capsule Take 25 mg by mouth three times daily. Disp: Rfl: Unknown at Unknown time [DISCONTINUED] albuterol HFA (PROAIR HFA) 90 mcg/actuation inhaler Inhale 2 Puffs as instructed every 4 hours as needed for Wheezing/Shortness of Breath. Disp: Rfl: Unknown at Unknown time [DISCONTINUED] albuterol (PROVENTIL) 2.5 mg /3 mL (0.083 %) nebulizer solution Use 2.5 mg via nebulizer twice daily. Disp: Rfl: Unknown at Unknown time Current Hospital Medications: Current Facility-Administered Medications Medication Dose Route Frequency - acetaminophen 1,000 mg tab(s) (TYLENOL) 1,000 mg ORAL q 6 H PRN - polyethylene glycol 3350 17 g packet (MIRALAX, GLYCOLAX) 17 g ORAL DAILY - senna 8.6 mg tab(s) (SENOKOT) 8.6 mg ORAL BID PRN - baclofen 10 mg tab(s) (LIORESAL) 10 mg ORAL TID - nicotine 14 mg/24 hr 1 Patch (NICODERM) 1 Patch TRANSDERMAL DAILY - NaCl 0.9% 3-5 mL 3-5 mL INTRAVENOUS q 12 H - ipratropium-albuterol 3 mL nebulizer solution (DUONEB) 3 mL INHALATION q 4 H while awake - ondansetron orally disintegrating 4 mg tab(s) (ZOFRAN ODT) 4 mg ORAL q 6 H PRN Or - ondansetron (PF) 4 mg injection (ZOFRAN) 4 mg INTRAVENOUS q 6 H PRN - nicotine -- REMOVE patch OTHER DAILY And - nicotine - verify patch OTHER q 8 H - fenofibrate 200 mg cap(s) (LOFIBRA) 200 mg ORAL DAILY WITH BREAKFAST - oxybutynin XL 5 mg tab(s) (DITROPAN XL) 5 mg ORAL DAILY - heparin 5,000 Units injection 5,000 Units SUBCUTANEOUS q 12 H - docusate 100 mg oral liquid (DIOCTO, COLACE) 100 mg ORAL BID - levothyroxine 125 mcg tab(s) (SYNTHROID) 125 mcg ORAL DAILY (6 AM) - pantoprazole 40 mg injection (PROTONIX) 40 mg INTRAVENOUS BID AC (0600/1600) FAMILY HISTORY: Negative for any digestive-related disorders or malignancies. SOCIAL HISTORY: Marital status: Children: One Alcohol use: No ETOH in past year. Prior rare usage. Tobacco use: 3 cigarettes/day REVIEW OF SYSTEMS: CONSTITUTIONAL: No fevers, chills, night sweats, unintended weight loss HEENT: Denies frequent or severe headaches EYES: No diplopia or blurry vision CARDIOVASCULAR: No chest pain, dyspnea, palpitations, orthopnea, PND, ankle edema PULM: (+) dyspnea GI: Per HPI : No new urinary complaints, including; dysuria, gross hematuria or pyuria NEURO: No dizziness, lightheadedness or vertigo MUSC/SKEL: No new joint pain, swelling, or erythema PSYCH: No concerns regarding depression, anxiety or panic INTEGUMENTARY: No new skin changes (rash, new or changing mole, new growth) PHYSICAL EXAM: Patient Vitals for the past 24 hrs: BP Temp Temp src Pulse Resp SpO2 Weight 02/01/19 0755 ? ? ? 90 18 ? ? 02/01/19 0744 115/56 37.6 ?C (99.6 ?F) Oral 82 18 93 % ? 02/01/19 0741 ? ? ? 90 18 91 % ? 02/01/19 0600 ? 99.6 kg (219 lb 9.3 oz) 02/01/19 0500 104/71 36.2 ?C (97.2 ?F) Temporal 83 18 92 % ? 01/31/192327 104/62 36.6 ?C (97.9 ?F) Temporal 82 18 94 % ? 01/31/192026 103/69 36.6 ?C (97.8 ?F) Temporal 89 20 93 % ? 01/31/19 1522 ? ? ? 90 20 ? ? 01/31/19 1515 101/64 36.3 ?C (97.3 ?F) Temporal 84 20 ? ? 01/31/19 1510 ? ? ? 88 18 93 % ? 01/31/19 1148 ? ? ? 88 18 ? ? 01/31/19 1137 ? ? ? 84 18 95 % ? 01/31/19 1051 115/54 36.6 ?C (97.9 ?F) Oral 80 18 94 % ? Body mass index is 35.44 kg/m?. GENERAL: Alert AND oriented x 3. Cooperative. NAD EYES: No scleral icterus SKIN: [place] in color. No jaundice LUNGS: Scattered rhonchi CARDIAC: RRR ABDOMEN: BS x 4. Abdomen moderately distended. Non tender. No palpable masses or organomegaly. No guarding or rebound tenderness elicited EXTREMITIES: No upper or lower extremity edema LABS: Diagnostic tests reviewed for today's visit: CBC, Coags, BMP, Mg, Phos Recent Labs 02/01/19 0432 01/31/19 0416 01/30/19 0352 WBC 11.05* 9.46 8.69 HB 13.6 13.1 12.9* HCT 42.5 41.3 40.4 PLT 405* 374 375 NA 136 138 138 K 4.5 4.6 4.4 CHLOR 100 103 100 CO2 24 25 26 BUN 22 24 24 CREAT 0.71* 0.77 0.79 GLUC 124* 114* 108* CA 9.7 9.4 9.5 Liver Function, Amylase, AND Lipase MISC LABS 01/22/19 Blood culture x 1: Klebsiella oxytoca 01/22/19 Blood culture x 1: No growth 5 days 01/24/19 Blood culture x 2: No growth 5 days RADIOLOGY 01/22/19 CXR RESULT: ? Mild interstitial prominence at the lung bases. ?No significant collapse or consolidation. ?No significant pleural fluid or pneumothorax. Scoliosis. Prominence of the hilar regions. ?Possibly due to prominent pulmonary arteries. ?Mild cardiac enlargement 01/23/19 Abdominal x-ray IMPRESSION: A few mildly distended small bowel loops. ?Consider follow-up. 01/26/19 CXR IMPRESSION: Mild bibasilar atelectasis. MOST RECENT EGD No prior MOST RECENT COLONOSCOPY Patient reports many years ago at [place] - further details unknown ASSESSMENT 1- Esophageal dysphagia with suspected food bolus 2- Chronic GERD / rare dysphagia with solids 3- Chronic constipation 4- Acute respiratory failure / COPD 5- Severe hypothyroidism PLAN - Plan for urgent EGD this am. R, B, A discussed with patient who is agreeable to proceed. - Hold Heparin today - NPO - Follow up CXR from this am - Protonix 40 mg po BID - Colace 100 mg BID / Miralax 17 grams daily - Monitor daily CBC, CMP - Further recommendations pending patient's clinical course Thank you for the opportunity to participate in the care of this patient. I will continue to follow with you. SIGNATURE: Magy Orosco MD DATE: February 01, 2019 TIME: 9:16 AM Normal [facility] NURSING PROGon 02-01-2019 NURSING PROG HNO ID: [id number] Author: Zac De La RosaRn) IVKTOR Lyles Service: Nursing Author Type: Registered Nurse Type: Nursing Progress Note Filed: 02/01/2019 1:58 PM Note Text: Nursing Progress Note Patient Name: Jorge Covington Patient Location: [id number] Daily Note: Pt awake, a/ox2, on RA, lungs rhonchi/coarse throughout, repositioned pt up in bed, +bsx4, per pt had 3 BM's last night, trace edema noted, iv heplocked, SR on tele. Pt aware he is NPO until speech therapy sees him. Call light in reach. 0810-ST in with pt. 0850-per ST concerns and recommendations, I spoke with Dr. Romo in regards to events, verbal order to consult GI, esophgram and xray of chest, and keep pt NPO at this time. 929-spoke with DAVID Le with GI group, hold subq heparin until they see pt and tests are done. 954-spoke with Mimi, CLINICAL EXERCISE PHYSIOLOGIST with GI group, dc'ing esophagram, pt to have EGD today estimate time 1115. Xray will be getting pt. 1035-pt off floor for xray and EGD. 1054- updated with above info. 1345-pt passed bedside swallow eval, call out to Mimi in regards to diet order. This note was completed by: Zac Lyles RN [facility] NUTRITIONon 02-01-2019 NUTRITION HNO ID: [id number] Author: Yue Rahman) Jimmy Service: Nutrition Therapy Author Type: Registered Dietitian Type: Nutrition Filed: 02/01/2019 9:38 AM Note Text: NUTRITION THERAPY PROGRESS NOTE SERVICE DATE: 02/01/2019 SERVICE TIME: 9:15 am NUTRITION CARE PLAN Intervention: Monitor clinical findings with a goal to advance diet Reviewed physician progress notes and labs. Monitor and Evaluation: Goal: Meet >75% of estimated needs Discharge Nutrition Recommendations: To be determined Interval History: Dysphagia - see speech therapy notes Acute respiratory failure? Orders Placed This Encounter DIET NPO Standing Status: Standing Number of Occurrences: 1 Lines and Drains: Peripheral 01/28/19 0900 Short Right Wrist 22 Gauge (Active) Height: 167.6 cm (5' 6 ) Admission Weight: 107 kg (236 lb) Current Weight: 99.6 kg (219 lb 9.3 oz) Body mass index is 35.44 kg/m?. class 2 obesity Recent Labs 02/01/19 0432 GLUC 124* BUN 22 CREAT 0.71* NA 136 K 4.5 CHLOR 100 CO2 24 HB 13.6 HCT 42.5 WBC 11.05* Current Facility-Administered Medications Medication Dose Route Frequency - pantoprazole 40 mg injection (PROTONIX) 40 mg INTRAVENOUS BID AC (0600/1600) - levothyroxine 125 mcg tab(s) (SYNTHROID) 125 mcg ORAL DAILY (6 AM) - docusate 100 mg oral liquid (DIOCTO, COLACE) 100 mg ORAL BID - acetaminophen 1,000 mg tab(s) (TYLENOL) 1,000 mg ORAL q 6 H PRN - polyethylene glycol 3350 17 g packet (MIRALAX, GLYCOLAX) 17 g ORAL DAILY - senna 8.6 mg tab(s) (SENOKOT) 8.6 mg ORAL BID PRN - baclofen 10 mg tab(s) (LIORESAL) 10 mg ORAL TID - nicotine 14 mg/24 hr 1 Patch (NICODERM) 1 Patch TRANSDERMAL DAILY - NaCl 0.9% 3-5 mL 3-5 mL INTRAVENOUS q 12 H - ipratropium-albuterol 3 mL nebulizer solution (DUONEB) 3 mL INHALATION q 4 H while awake - ondansetron orally disintegrating 4 mg tab(s) (ZOFRAN ODT) 4 mg ORAL q 6 H PRN Or - ondansetron (PF) 4 mg injection (ZOFRAN) 4 mg INTRAVENOUS q 6 H PRN - nicotine -- REMOVE patch OTHER DAILY And - nicotine - verify patch OTHER q 8 H - fenofibrate 200 mg cap(s) (LOFIBRA) 200 mg ORAL DAILY WITH BREAKFAST - oxybutynin XL 5 mg tab(s) (DITROPAN XL) 5 mg ORAL DAILY - heparin 5,000 Units injection 5,000 Units SUBCUTANEOUS q 12 H MNT Billing Type: Re-assess/15 min 1 unit SIGNATURE: Yue Marquez RD, LD PATIENT NAME: Jorge Covington DATE: February 01, 2019 TIME: 9:35 AM [facility] PROGRESSon 02-01-2019 PROGRESS HNO ID: [id number] Author: Shirley Romo Service: ? Author Type: Physician Type: Progress Notes Filed: 02/01/2019 11:46 AM Note Text: INTERNAL MEDICINE PROGRESS NOTE SERVICE DATE: 02/01/2019 SERVICE TIME: 11:44 AM ADMITTING PHYSICIAN: Shirley Romo Subjective CHIEF COMPLAINT: Pt apparently choked on a turkey sandwich last evening and still a concern that some of it is stuck in his esophagus. He was made npo and seen by GI this am he is currently down for a emergent EGD. Current Facility-Administered Medications Medication Dose Route Frequency - [MAR Hold due to Transfer] pantoprazole 40 mg injection (PROTONIX) 40 mg INTRAVENOUS BID AC (0600/1600) - [MAR Hold due to Transfer] levothyroxine 125 mcg tab(s) (SYNTHROID) 125 mcg ORAL DAILY (6 AM) - [MAR Hold due to Transfer] docusate 100 mg oral liquid (DIOCTO, COLACE) 100 mg ORAL BID - [MAR Hold due to Transfer] acetaminophen 1,000 mg tab(s) (TYLENOL) 1,000 mg ORAL q 6 H PRN - [MAR Hold due to Transfer] polyethylene glycol 3350 17 g packet (MIRALAX, GLYCOLAX) 17 g ORAL DAILY - [MAR Hold due to Transfer] senna 8.6 mg tab(s) (SENOKOT) 8.6 mg ORAL BID PRN - [MAR Hold due to Transfer] baclofen 10 mg tab(s) (LIORESAL) 10 mg ORAL TID - [MAR Hold due to Transfer] nicotine 14 mg/24 hr 1 Patch (NICODERM) 1 Patch TRANSDERMAL DAILY - [MAR Hold due to Transfer] NaCl 0.9% 3-5 mL 3-5 mL INTRAVENOUS q 12 H - [MAR Hold due to Transfer] ipratropium-albuterol 3 mL nebulizer solution (DUONEB) 3 mL INHALATION q 4 H while awake - [MAR Hold due to Transfer] ondansetron orally disintegrating 4 mg tab(s) (ZOFRAN ODT) 4 mg ORAL q 6 H PRN Or - [MAR Hold due to Transfer] ondansetron (PF) 4 mg injection (ZOFRAN) 4 mg INTRAVENOUS q 6 H PRN - [MAR Hold due to Transfer] nicotine -- REMOVE patch OTHER DAILY And - [MAR Hold due to Transfer] nicotine - verify patch OTHER q 8 H - [MAR Hold due to Transfer] fenofibrate 200 mg cap(s) (LOFIBRA) 200 mg ORAL DAILY WITH BREAKFAST - [MAR Hold due to Transfer] oxybutynin XL 5 mg tab(s) (DITROPAN XL) 5 mg ORAL DAILY - [MAR Hold due to Transfer] heparin 5,000 Units injection 5,000 Units SUBCUTANEOUS q 12 H INTERVAL HISTORY OF PRESENT ILLNESS: Chest xray pending regarding possible aspiration after choking spell Objective PHYSICAL EXAM: Patient Vitals for the past 24 hrs: BP Temp Temp src Pulse Resp SpO2 Weight 02/01/19 0755 ? ? ? 90 18 ? ? 02/01/19 0744 115/56 37.6 ?C (99.6 ?F) Oral 82 18 93 % ? 02/01/19 0741 ? ? ? 90 18 91 % ? 02/01/19 0600 ? 99.6 kg (219 lb 9.3 oz) 02/01/19 0500 104/71 36.2 ?C (97.2 ?F) Temporal 83 18 92 % ? 01/31/192327 104/62 36.6 ?C (97.9 ?F) Temporal 82 18 94 % ? 01/31/192026 103/69 36.6 ?C (97.8 ?F) Temporal 89 20 93 % ? 01/31/19 1522 ? ? ? 90 20 ? ? 01/31/19 1515 101/64 36.3 ?C (97.3 ?F) Temporal 84 20 ? ? 01/31/19 1510 ? ? ? 88 18 93 % ? 01/31/19 1148 ? ? ? 88 18 ? ? Body mass index is 35.44 kg/m?. GENERAL: Alert, no distress, cooperative SKIN: Skin color, texture, turgor normal. No rashes or lesions. OROPHARYNX: Lips, mucosa, and tongue are normal.Teeth and gums, normal. Oropharynx normal. NECK: No jugulovenous distention, No carotid bruits, Carotid pulse normal contour, Supple LUNGS: Lungs clear to auscultation. Good diaphragmatic excursion. CARDIAC: Normal S1 and S2; no rubs, murmurs, or gallops ABDOMEN: Abdomen soft, non-tender, BS normal, No masses or organomegaly EXTREMITIES: Extremities normal, no deformities, edema, clubbing or skin discoloration. Good capillary refill., No ulcers NEURO: Alert, oriented X 3, Gait normal. Non-focal. Reflexes normal and symmetric. Sensation grossly intact., Cranial nerves II-XII intact PULSES: 2+ radial, 2+ posterial tibial, 2+ carotid DATA: Diagnostic tests reviewed for today's visit: Most recent labs and imaging results. Assessment/Plan Choking episode with suspected food bolus in EGD now Possible aspiration chest xray pending Acute respiratory failure?resolved on 2 liters now Copd Decompensated hypothryoidism with myxedema?changing to po thyroid meds tomorrow hypercapnea-resolved Suspect adolfo/ohs uti?proteus sensitive to rocephin GNB septicemia?klebsiella sensitive to rocephin Medication and Non-Pharmacologic VTE Prophylaxis/Anticoagula nts Anticoagulant AND Antiplatelet Medications (From admission, onward) Start Dose Route Frequency Ordered Stop 01/22/190 [MAR Hold due to Transfer] heparin 5,000 Units injection (Medical Risk Categories) (MAR Hold due to Transfer since Thu02/01/2019 at 1106. Reason: Hold Unreviewed Transfer Orders.) 5,000 Units SUBCUTANEOUS EVERY 12 HOURS 01/22/192228 -- 01/22/192229 pneumatic compression stockings (fl,oh) 01/22/191814 vte non-pharmacologic prophylaxis - none indicated (fl,oh) 01/22/191814 activity - mobilize patient (fl,oh) VTE Prophylaxis: VTE prophylaxis appropriate SIGNATURE: Shirley Romo DO PATIENT NAME: Jorge Covington DATE: February 01, 2019 TIME: 11:44 AM PAGER/CONTACT #: [phone] Normal [facility] SURGICAL PATHOLOGYon SURGICAL PATHOLOGY Specimen originated from [facility] Specimen #: [id number] Submitting Physician: MAGY OROSCO M.D. FINAL DIAGNOSIS Esophagogastric junction, biopsy - Mild acute esophagitis. - No evidence of intestinal metaplasia or dysplasia. - GMS fungal stain is negative. KAREEN LARKIN MD (Electronic Signature) SPECIMEN SUBMITTED A: ESOPHAGOGASTRIC JUNCTION, BIOPSY CLINICAL DATA DYSPHAGIA GROSS DESCRIPTION A. Received in formalin is one piece of bonilla, soft tissue measuring 0.5 x 0.2 x 0.1 cm. Totally submitted in one cassette. Gross examination performed at [facility], [address] [place] [address] 02/01/2019 5:08:12 PM Date of Report: 02/02/2019 Date of Procedure: 02/01/2019 Date of Receipt: 02/01/2019 Submitted by: MAGY OROSCO M.D. Location: [address] [place] [address] Diagnostic interpretation performed [facility] [address] [facility] [address]. [place] Number: [id number] Normal [facility] THERAPY NTon 02-01-2019 THERAPY NT HNO ID: [id number] Author: Brook (Sql Report Developer) Jama Marie CCC/INSOLE DEPARTMENT WORKER Service: Speech/Swallow Author Type: Speech Language Pathologist Type: Therapy (PT/OT/Speech/Resp) Filed: 02/01/2019 8:39 AM Note Text: Speech Therapy Clinical Swallow Evaluation SERVICE DATE: 02/01/2019 SERVICE TIME: 749 ROOM: [place] [address] Nursing Recommendations: Reinforce use of swallowing strategies Diet Recommendations: (NPO until additional diagnostic testing can be completed) Recommended Consults: Esophagram Results and Recommendations Discussed With: Patient;Nurse Recommended Discharge Disposition: Unable to determine IMPRESSION: Patient demonstrates highly suspected Esophageal phase dysphagia which is negatively impacting his/her ability to effectively maintain adequate nutrition and hydration and/or airway safety. Rehabilitation Precautions: Dysphagia;NPO Precaution/Activity Restriction Comments: standard, mobilize ASSESSMENT: Tolerated Full Session -using a sputum bag which is filled with clear saliva; Pt indicating that he is experiencing a significant amount of 'acid reflux' -admits to not being able to keep his own saliva down since experiencing a choking episode with the turkey sandwich -while at bedside this INSOLE DEPARTMENT WORKER noted significant / reoccurring episodes of burping, retching, and expectorant of clear saliva -unable to complete 3 ounce water challenge; Pt is consuming small sips of water with what appears to be immediate retrograde flow -pt denies nausea or vomiting -no additional items are presented at this time given assessment of current signs/symptoms of suspected esophageal phase dysphagia -pt is in agreement with no additional PO trials at this time with recommendation for additional diagnostic testing Goals for Plan of Care: Swallow Goals: -Patient will tolerate Regular Consistency, Thin Liquids IDDSI Level 0 diet consistency while utilizing compensatory/swallowing strategies given no cues in 100% of trials so that the patient will minimize the signs/symptoms of dysphagia. -Patient will participate in a Esophagram to thoroughly evaluate the esophageal phase of the swallow, which cannot be substantiated through a clinical swallowing evaluation only. Through further diagnostic testing a definitive diagnosis/identificatio n of the patient's current swallowing function and recommended treatment plan can be established. Patient /Caregiver Goals: Eat/Drink Without Restrictions;Go Home Speech Rehab Potential: Good PLAN: Treatment Frequency (times per week): 5 Current admission Treatment Interventions: Dysphagia Management Plan of Care Developed with: Patient;Caregiver TREATMENT INTERVENTIONS: Therapy Diagnosis: Dysphagia, pharyngoesophageal phase(Highly suspect Esophageal Dysphagia) Interventions Provided: Clinical Swallow Evaluation (17965) $ Clinical Swallow Evaluation (02664) Billed Units: 1 unit Clinical Swallowing assessment completed to determine the patient's current swallowing skills and potential need for additional diagnostics and/or therapeutic intervention. -consulted with nursing regarding suggested Esophagram at this time. Total Treatment Time (minutes): 38 SUBJECTIVE: Current Hospital Course: Chart reviewed; recent choking episode with turkey sandwich Reason for Speech Therapy Consult: dysphagia; recent choking episode Relevant Past Medical History: COPD Patient Report: I am having much more difficulty with swallowing. Home Environment Prior Functional Level: Required Assistance Prior Swallowing Function/Diet Textures: Regular Consistency;Thin Liquids IDDSI Level 0(per patient) Please see discipline specific clinical documentation flowsheet for complete details for this therapy evaluation/treatment. SIGNATURE: Brook Marie CCC-INSOLE DEPARTMENT WORKER PATIENT NAME: Jorge Covington DATE: February 01, 2019 TIME: 8:34 AM [facility] XR CHEST 2V FRONTAL/LATon XR CHEST 2V FRONTAL/LAT * * *Final Report* * * DATE OF EXAM: Feb 01 2019 10:56AM [facility] 5291 - XR CHEST 2V FRONTAL/LAT / PROCEDURE REASON: Aspiration * * * * Physician Interpretation * * * * EXAMINATION: CHEST RADIOGRAPH (2 VIEW FRONTAL and LATERAL) CLINICAL HISTORY: Aspiration, Cough, new onset MQ: XC2_5 Comparison: 01/26/2019 RESULT: Lines, tubes, and devices: None. Lungs and pleura: Bibasilar opacifications suspicious for pleural effusions, underlying atelectasis/infiltrate not excluded. No vascular engorgement or pneumothorax. Cardiomediastinal silhouette: Stable cardiomediastinal silhouette. Other: Hardware overlies the lower cervical spine. IMPRESSION: Bibasilar pleural effusions, underlying processes not excluded. Partner Alliance Manager: ALDO Transcribe Date/Time: Feb 01 2019 12:29P Dictated by : JANELLE THOMAS MD This examination was interpreted and the report reviewed and electronically signed by: JANELLE THOMAS MD on Feb 01 2019 12:30PM EST [id number] Normal [facility] Basic Metabolic Panlon 01-31 Anion gap [Moles/Vol] 10 mmol/L Normal 9-18 [facility] Comment on above: Performed By: #### C RAFAEL, BMP ####[facility] [address] [place] [address] Calcium [Mass/Vol] 9.4 mg/dL Normal 8.5-10.2 [facility] Comment on above: Performed By: #### C RAFAEL, BMP ####[facility] [address] [place] [address] Chloride [Moles/Vol] 103 mmol/L Normal 97-105 [facility] Comment on above: Performed By: #### Beatriz HALL, BMP ####[facility] [address] [place] [address] CO2 [Moles/Vol] 25 mmol/L Normal 22-30 [facility] Comment on above: Performed By: #### Beatriz HALL, BMP ####[facility] [address] [place] [address] Creatinine [Mass/Vol] 0.77 mg/dL Normal 0.73-1.22 [facility] Comment on above: Performed By: #### Beatriz HALL, BMP ####[facility] [address] [place] [id number] eGFR- Amer. >60 Normal [facility] Comment on above: Performed By: #### Beatriz HALL, BMP ####[facility] [address] [place] [address] GFR/1.73 sq M predicted among non-blacks MDRD (S/P/Bld) [Vol rate/Area] mL/min/{1.73_m2} Normal [facility] Comment on above: Result Comment: eGFR (Estimated GFR) Units of measure: mL/min/1.73 meters squared eGFR is derived from the reexpressed MDRD Study equation using the following parameters: serum creatinine, age, gender and race. The creatinine assay has been calibrated to be traceable to IDMS. An eGFR <60 mL/min/1.73m2 for >3 months is consistent with chronic kidney disease. Refer to KDOQI guidelines for clinical interpretation. In patients with unstable renal function, e.g. those with acute kidney injury, the eGFR may not accurately reflect actual GFR. Performed By: #### C RAFAEL, BMP ####[facility] [address] [place] [address] Glucose [Mass/Vol] 114 mg/dL High 74-99 [facility] Comment on above: Result Comment: The [place] [employer] (ADA) provides guidance for cutoff values for fasting glucose and random glucose. The ADA defines fasting as no caloric intake for at least 8 hours. Fasting plasma glucose results between 100 to 125 mg/dL indicate increased risk for diabetes (prediabetes). Fasting plasma glucose results greater than or equal to 126 mg/dL meet the criteria for diagnosis of diabetes. In the absence of unequivocal hyperglycemia, results should be confirmed by repeat testing. In a patient with classic symptoms of hyperglycemia or hyperglycemic crisis, random plasma glucose results greater than or equal to 200 mg/dL meet the criteria for diagnosis of diabetes. Reference: Standards of Medical Care in Diabetes 2016, [place] [employer]. Diabetes Care. 2016.39(Suppl 1). Performed By: #### C RAFAEL, BMP ####[facility] [address] [place] [address] Potassium [Moles/Vol] 4.6 mmol/L Normal 3.7-5.1 [facility] Comment on above: Performed By: #### C RAFAEL, BMP ####[place] [address] Sodium [Moles/Vol] 138 mmol/L Normal 136-144 [facility] Comment on above: Performed By: #### C RAFAEL, BMP ####[facility] [address] [place] [address] Urea nitrogen [Mass/Vol] 24 mg/dL Normal 9-24 [facility] Comment on above: Performed By: #### C RAFAEL, BMP ####[facility] [address] [place] [address] CASE MANAGEMon 01-31-2019 CASE MANAGEM HNO ID: [id number] Author: Florence De La RosaRn) VIKTOR Mullins Service: Care Management Author Type: Registered Nurse Type: Care Mgt Progress Note Filed: 01/31/2019 3:04 PM Note Text: CARE MANAGEMENT PROGRESS NOTE SERVICE DATE: 01/31/2019 SERVICE TIME: 2:59 PM LOS: 9 days Needs Prior to Discharge: Precertification;Discha rge Transportation CM met with patient at bedside and received call from Dasia regarding discharge. Awaiting precert for admission to [facility]. wanted to change SNF location to [facility] SN[facility] she called them and they told her they had a bed. Received call from [facility], unfortunately was transferred to acute rehab area which does have a bed, SNF does not. Patient does not meet criteria for their acute rehab. SNF will not have a bed open until Thursday. Discussed with Dasia this updated information from [facility]. Discussed with her sending pt to [facility] after we get precert, then having them transfer him to [facility] when their bed opens. reluctant to agree, doesn't think the facility will do that. Has had bad experience with another facility in the past. is calling her insurance company and will call CM back SIGNATURE: Florence Mullins RN PATIENT NAME: Jorge Covington DATE: January 31, 2019 TIME: 2:59 PM PAGER/CONTACT #: [phone] Normal [facility] CBCon 01-31-2019 Erythrocyte distribution width (RBC) [Ratio] 17.6 % High 11.5-15.0 [facility] Comment on above: Performed By: #### C RAFAEL, BMP ####[facility] [address] [place] [address] Hematocrit (Bld) [Volume fraction] 41.3 % Normal 39.0-51.0 [facility] Comment on above: Performed By: #### C BC, BMP ####[facility] [address] Hemoglobin (Bld) [Mass/Vol] 13.1 g/dL Normal 13.0-17.0 [facility] Comment on above: Performed By: #### C BC, BMP ####[facility] [address] MCH (RBC) [Entitic mass] 29.6 pG Normal 26.0-34.0 [facility] Comment on above: Performed By: #### C BC, BMP ####[facility] [address] MCHC (RBC) [Mass/Vol] 31.7 g/dL Normal 30.5-36.0 [facility] Comment on above: Performed By: #### Beatriz HALL, BMP ####[facility] [address] MCV (RBC) [Entitic vol] 93.4 fL Normal 80.0-100.0 [facility] Comment on above: Performed By: #### Beatriz HALL, BMP ####[facility] [address]46 [address] Platelet mean volume (Bld) [Entitic vol] 9.3 fL Normal 9.0-12.7 [facility] Comment on above: Performed By: #### Beatriz HALL, BMP ####[facility] [address] Platelets (Bld) [#/Vol] 374 10*3/uL Normal 150-400 [facility] Comment on above: Performed By: #### Beatriz HALL, BMP ####[facility] [address]esp8083 [address] RBC (Bld) [#/Vol] 4.42 10*6/uL Normal 4.20-6.00 [facility] Comment on above: Performed By: #### Beatriz HALL, BMP ####[facility] [address]il7163 [address] WBC (Bld) [#/Vol] 9.46 10*3/uL Normal 3.70-11.00 [facility] Comment on above: Performed By: #### Beatriz HALL, BMP ####[facility] [address]36 [address] PROGRESSon 01-31-2019 PROGRESS HNO ID: [id number] Author: Everton Kuhn Service: General Internal Medicine Author Type: Nurse Practitioner Type: Progress Notes Filed: 01/31/2019 8:21 PM Note Text: INCIDENTAL PROGRESS NOTE Name: Jorge Covington SERVICE DATE: 01/31/2019 SERVICE TIME: 2010 ATTENDING: Dr. Shirley Romo Subjective INTERVAL HPI: Patient admitted for COPD exacerbation on 01/22. Today nursing calls [employer]SEM[employer] WORKER with complaints of patient choking on a turkey sandwich. FIBER [employer]IC ASSEMBLY WORKER at bedside to see patient and his . Per both parties the patient has had issues with swallowing in the past each only a few times per year. They have never been seen for this or had it worked up. Presently the patient is complaining of no pain, states mild nausea with GERD like symptoms, with belching. He states he hacked up a few pieces of turkey and is felling better. This admission per nursing he has been having issues with taking oral liquids as he had noted coughing post ingestion. They also provide that the patient was sitting in a semi erect position when eating his sandwich. Review of Systems Constitutional: Negative for fever, chills and fatigue. HENT: Positive for trouble swallowing. Negative for postnasal drip. Eyes: Negative for visual disturbance. Respiratory: Positive for cough and chronic cough. Negative for difficulty breathing. Cardiovascular: Negative for chest pain, leg swelling and palpitations. Gastrointestinal: Positive for heartburn and nausea. Negative for vomiting, abdominal pain, diarrhea and constipation. Genitourinary: Negative for dysuria, urgency and hematuria. Musculoskeletal: Negative for myalgias and joint pain or stiffness. Neurological: Negative for dizziness, headaches and numbness. Endo/Heme/Allergies: Negative for polydipsia and polyuria. Objective BP 101/64 Pulse 90 Temp (Src) 97.3 (Temporal) Resp 20 Ht 5' 6 (1.68m) Wt 225 lb 8.5 oz (102.3kg) SpO2 93% BMI 36.42 kg/(m2). O2 Therapy: Room Air Physical Exam Constitutional: He is oriented to person, place, and time. He appears to not be writhing in pain. No distress. HENT: Head: Normocephalic and atraumatic. Eyes: Pupils are equal, round, and reactive to light. Conjunctivae are normal. Right eye exhibits no discharge. Left eye exhibits no discharge. Neck: Normal range of motion. Neck supple. No tracheal deviation present. Cardiovascular: Normal rate, regular rhythm, normal heart sounds and intact distal pulses. Pulmonary/Chest: Effort normal and breath sounds normal. No respiratory distress. He has no decreased breath sounds. He has no wheezes. He has no rales. Abdominal: Soft. Bowel sounds are normal. He exhibits distension. There is no tenderness. There is no guarding. Musculoskeletal: Normal range of motion. He exhibits no edema. Neurological: He is alert and oriented to person, place, and time. He is not agitated and not disoriented. He displays normal speech. Skin: Skin is warm. He is not diaphoretic. No erythema. Psychiatric: Affect and judgment normal. DATA: Diagnostic tests reviewed for today's visit: Most recent labs and imaging results. Assessment/Plan 1. Dysphagia -States issues for a few years -Issues occurring a few times per year -Denies past intervention or workup -States choking and coughing up a turkey [facility] -Make patient NPO -ST consult 2. GERD -Hx of GERD -States increased symptoms -Also has noted #1 -Change PPI to BID IV -Increase HOB -Await ST consult Everton Kuhn APRN.STAFFING MGR SIGNATURE: Eevrton Kuhn APRN.CNP PATIENT NAME: Jorge Covington DATE: January 31, 2019 TIME: 8:11 PM PAGER: [phone] [facility] THERAPY NTon 01-31-2019 THERAPY NT HNO ID: [id number] Author: Drea (Ot/L) Patrica Service: Occupational Therapy Author Type: Occupational Therapist Type: Therapy (PT/OT/Speech/Resp) Filed: 01/31/2019 1:20 PM Note Text: Occupational Therapy Treatment SERVICE DATE: 01/31/2019 SERVICE TIME: 1248 to 1300 ROOM: [id number] Recommended Discharge Disposition: Subacute/SNF Recommended Discharge Disposition Comments: Pt continues to present below baseline and requires continued skilled OT to increase strength and endurance to maximize independence in ADLs and functional mobility Justification For Post Acute Needs: Living the community premorbidly;Medically complex;Motivated;Willi ng to participate;Anticipate that patient will require daily (5x/wk) skilled therapy in a post-acute facility setting at the time of acute hospital discharge;May not tolerate higher intensity programing Anticipated Discharge Needs: (Recommending SNF ) OT Recommendations to Nursing: With assist of 2 people;Utilize bed in Chair Position;Edge of bed ADL?s;Encourage patient participation with in-bed ADL?s OT 6 Clicks Score: 12 Precautions/Activity Restrictions: Bed/Chair Alarm;Fall Risk;Lines/Tubes/Drains Precaution/Activity Restriction Comments: standard, mobilize ASSESSMENT: Pt continues to present with decreased strength and activity tolerance which have resulted in a decline in safe ADL and functional mobility performance. Pt required overall mod A for supine mobility but is CGA for EOB mobility (scooting). Overall ADLs required max-total A for LB and min-mod A for UB. Pt appeared winded throughout session and had difficulty maintaining sitting balance while sitting EOB. Pt requires continued skilled OT to increase strength, balance, and activity tolerance to maximize independence in ADLs and functional mobility. Pt to progress to slide board transfers and w/c mobility training. Patient Disposition at Start of Session: Sitting on Edge of Bed;Call Gardner in Reach Patient Disposition at End of Session: Supine in Bed;Call Gardner in Reach Tolerance Limited By Fatigue Occupational Therapy Problem List: Cognitive Deficit;Safety Deficits;Impaired Self Care;Decreased Activity Tolerance;Functional Mobility Impairment;Decreased Strength;Balance Impaired Patient /Caregiver Goals: Walk Goals for Plan of Care: Grooming with: Set Up Upper Body Dressing with: Set Up Lower Body Dressing with: Contact Guard Assistance(with AE; seated EOB ) Chair Transfer with: Minimal Assistance(use of slide board ) Tolerate (minutes of functional activity): 30 Functional Activity with: Contact Guard Assistance Increased Awareness of Cognitive Impairments as Related to ADL's/IADL's: Demonstrated Progress Toward Goals: Progressing slower than expected Due To: decreased activity tolerance Rehab Potential: Fair PLAN: Treatment Frequency (times per week): 2 Current admission Treatment Interventions: Education;Self Care / Home Management;Energy Conservation Training;Functional Mobility Training;Balance Training;Cognitive Training;Strengthening Plan of Care developed with: Patient TREATMENT INTERVENTIONS: Therapy Diagnosis: Reduced mobility-other;Decrease d activities of daily living (ADL);Muscle Weakness (generalized);General symptoms and signs-other;Signs and Symptoms Involving Cognitive Functions and Awareness Interventions Provided: Self Senior Living Management (75880) Self Senior Living Management (07207) Treatment Minutes: 12 1 unit Skilled Intervention(s): Instruction on EOB scooting to reinforce UE strength and movements with eventual progression to slide board transfers Instruction on EOB balancing - using UE for support and straightening posture Instruction on hair brushing for thoroughness - reaching back of head and brushing full length of hair. Instruction on sit>supine transition - movement of trunk and LE for proper positioning in bed Provided cuing for UE placement and movements to increase independence in in-bed mobility. Total Timed Code Treatment Minutes: 12 Total Treatment Time (minutes): 12 SUBJECTIVE: Current Hospital Course: Chart reviewed; Pt is a 63yo male, see below Reason for Occupational Therapy Consult: Pt admitted with muxedema coma, septicemia, and acute respiratory failure; OT consulted for Critical Care Therapy Relevant Past Medical History: COPD,B LE weakness, hypothyroidism Patient Report: I manage my own medications. I just read the label and take them Pt agreeable to therapy this day. Home Environment Patient Lives With: Spouse Assistance Available: 24 Hour(from spouse) Entry To Home: Stairs;With Rail;Ramp Number Of Stairs Into Home: 3(with B hand rails, can utilize simultaneously, uses ramp) Number Of Stairs To Bed/Bath: 0 Tub/Shower Type: walk in shower with chair, varies between sponge bathing and assist into showers with spouse Laundry: spouse completes Equipment Owned: Hospital Bed;Wheeled Walker;Shower Chair;Wheelchair;Other: See Comment(slide board, brace/AFO R LE) Prior Functional Level: Required Assistance;History of Falls Assistance Required With: Cleaning;Laundry;Meals; Medication Management;Safety;Self Care;Shopping;Transport ation;Wheelchair Mobility 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, pt is supervision for slideboard transfers to/from w/c/commode/shower chair/hospital bed/car, spouse assists with all ADLs, spouse fully completes all IADLs and driving, reports x 2 falls out of w/c in the past 6 months, mod I for w/c management around home and up ramp into home(active with home PT services, + wears brace/AFO R LE) OBJECTIVE: Cognition/Communication Deficits Orientation Deficits: Confused;Not oriented to Place;Not oriented to Time(stated December, then April) Responsiveness: Alert;Awake Follows Commands: 2-step Commands Executive Function Deficits: Insight to Deficits Cognitive Clinical Tests and Screens: Short Blessed Test 1. What Year Is It Now?: Correct 2. What Month Is It Now?: Incorrect 3. What Time is it? (WIthin 1 hour): Correct 4. Count Aloud Backwards 20 to 1 (Errors): 2 5. Months of the Year in Reverse Order (Errors): 2 6. Memory Phrase (Errors) : 2 Short Blessed Final Score: 15 CURRENT FUNCTIONAL STATUS: Current Activities of Daily Living Assist Level Feeding Modified Independent(per observation) - from previous encounter Grooming Moderate Assistance(brushing hair EOB ) Bathing Upper Body Moderate Assistance(per clinical judgment bed level) Bathing Lower Body Maximal Assistance(using towelettes; unable to thoroughly wash thigh ) - from previous encounter Dressing Upper Body Moderate Assistance(per clinical judgment bed level) Dressing Lower Body Total Assistance(per clinical judgement ) Toileting Total Assistance(per clinical judgement ) Functional Mobility Assist Level Rolling Minimal Assistance(HOB elevated, R-2x, L-2x) From previous encounter Supine to Sit Moderate Assistance(of 2; HOB elevated, to R) from previous encounter Sit to Supine Moderate Assistance assistance with LE Scooting Contact Guard Assistance(scooting along EOB ) Sit to Stand (deferred as pt typically does not stand baseline) Stand to Sit Bed to Chair (deferred d/t decreased act tolerance/sitting balance) Toilet/Commode Functional Mobility Balance: Static Sitting;Dynamic Sitting Static Sitting Balance: Poor(to Poor+ (retro, to L lateral lean)) Unable to maintain balance - requires mod/max support individual or chair(to Poor+ (retro, to L lateral lean)) Dynamic Sitting Balance: Poor Able to sit unsupported with Mod A and reach to ipsilatera/front - cant cross midline Activity Tolerance: Sitting Activity Sitting Activity: EOB grooming, scooting EOB Sitting Activity Tolerance (in minutes): 8(sitting EOB with DOWEL SETTING MACHINE OPERATOR earlier ) Please see discipline specific clinical documentation flowsheet for complete details for this therapy evaluation/treatment. SIGNATURE: Dera Burciaga OT/Eliseo PATIENT NAME: Jorge Covington DATE: January 31, 2019 TIME: 1:13 PM [facility] THERAPY NT HNO ID: [id number] Author: Melvi Ledezma Service: Physical Therapy Author Type: Compound Filler Type: Therapy (PT/OT/Speech/Resp) Filed: 02/02/2019 7:17 AM Note Text: Attestation signed by Philip De La RosaPt) Nadine at 02/03/2019 7:17 AM I reviewed and agree with the documentation corresponding to this therapy visit. SIGNATURE: Philip Mccoy PT DATE: February 03, 2019 TIME: 7:17 AM Physical Therapy Treatment SERVICE DATE: 01/31/2019 SERVICE TIME: 1235 to 1250 ROOM: [id number] Recommended Discharge Disposition: Subacute/SNF Recommended Discharge Disposition Comments: Pt currently below baseline, + fall risk; indicates need for continued PT post-acute in SNF setting to improve safety, strength, independence with all mobility prior to return home with spouse Justification For Post Acute Needs: Community discharge potential unknown;Functional status improvement unknown;Good family support;Medically complex;Willing to participate;May not tolerate higher intensity programing;Anticipate that patient will require daily (5x/wk) skilled therapy in a post-acute facility setting at the time of acute hospital discharge Anticipated Discharge Needs: (Recommending SNF ) Recommended Discharge Equipment: No equipment needs anticipated PT Recommendations to Nursing: Utilize bed in chair position;Sit at edge of bed;Not appropriate for OOB activity at this time;Other: See Comment(assist x 2 for safety to EOB to dangle,do not leave unattend) Device: (turn/position schedule) PT 6 Clicks Score: 8 Precautions/Activity Restrictions: Bed/Chair Alarm;Fall Risk;Lines/Tubes/Drains Precaution/Activity Restriction Comments: standard, mobilize ASSESSMENT : Patient pleasant and highly motivated to participate with PT. Patient able to tolerate EOB sitting x10 minutes and perform seated exercises. Patient presents with marked B LE weakness, limited ROM and much decreased activity tolerance. Patient requires Mod A-Min A with all functional mobility. Patient's needs exceed resources available and patient is unsafe to return home alone. Patient Disposition at Start of Session: Supine in Bed;Call Gardner in Reach;SCDs Patient Disposition at End of Session: Other: See Comment(sitting EOB with OT) Tolerance Limited By Fatigue Physical Therapy Problem List: Cognitive Deficit;Education Deficit;Safety Deficits;Decreased Activity Tolerance;Decreased Strength;Functional Mobility Impairment;Balance Impaired Patient /Caregiver Goals: Go To Rehab Goals for Plan of Care: Able to perform HEP with: Verbal Cues Only(B LEs x 15-20 reps) Rolling with: Contact Guard Assistance Transfer supine to/from sit with: Contact Guard Assistance Transfer: Transfer bed to/from chair with slide board, even and uneven surfaces, no more than CGA to increase safety with OOB activity Goal: -Improve static and dynamic sitting to require no more than CGA to allow for safety with all EOB activities and slideboard transfers Goal: -all above to be achieved with pulse OX >90% Progress Toward Goals: Progressing slower than expected Due To: Acuity of illness Rehab Potential: Fair PLAN: Treatment Frequency (times per week): 4 Current admission Treatment Interventions: Education;Energy Conservation Training;Joint Mobility;Strengthening; Functional Mobility Training;Balance Training;Neuromuscular Re-education Plan of Care developed with: Patient TREATMENT INTERVENTIONS: Therapy Diagnosis: Reduced mobility-other Interventions Provided: Therapeutic Exercise (00027);Therapeutic Activity (44407) Therapeutic Exercise (94222) Treatment Minutes: 10 1 unit Skilled Intervention(s): Instruction in therapeutic exercise for bilateral AP, GS with 5 second hold, LAQ, slightly resisted isometric hip abduction/addduction, hip flexion x 15 reps each Min A required on R LE for all exercises Verbal and tactile cuing provided for correct performance of exercises Cues for diaphragmatic breathing Re-emphasized the importance of frequent performance of anti-embolic exercises Therapeutic Activity (11210) Treatment Minutes: 3 0 units Skilled Intervention(s): Instructed patient in supine to sit pushing with upper extremities to sit up Patient educated in importance of out of bed activity for rehabilitation and to prevent functional decline. Total Timed Code Treatment Minutes: 13 Total Treatment Time (minutes): 13 SUBJECTIVE: Current Hospital Course: Chart reviewed and no significant medical updates relevant to therapy were noted Reason for Physical Therapy Consult : critical care therapy Relevant Past Medical History: COPD,B LE weakness, hypothyroidism Patient Report: Patient agreeable and motivated to participate in PT. Patient states, I want to be able to walk. Patient appropriate for PT per RNDarcie. Home Environment Patient Lives With: Spouse Assistance Available: 24 Hour(from spouse) Entry To Home: Stairs;With Rail;Ramp Number Of Stairs Into Home: 3(with B hand rails, can utilize simultaneously, uses ramp) Number Of Stairs To Bed/Bath: 0 Tub/Shower Type: walk in shower with chair, varies between sponge bathing and assist into showers with spouse Laundry: spouse completes Equipment Owned: Hospital Bed;Wheeled Walker;Shower Chair;Wheelchair;Other: See Comment(slide board, brace/AFO R LE) Prior Functional Level: Required Assistance;History of Falls Assistance Required With: Cleaning;Laundry;Meals; Medication Management;Safety;Self Care;Shopping;Transport ation;Wheelchair Mobility 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, pt is supervision for slideboard transfers to/from w/c/commode/shower chair/hospital bed/car, spouse assists with all ADLs, spouse fully completes all IADLs and driving, reports x 2 falls out of w/c in the past 6 months, mod I for w/c management around home and up ramp into home(active with home PT services, + wears brace/AFO R LE) OBJECTIVE: CURRENT FUNCTIONAL STATUS: Current Functional Mobility Assist Level Additional Information Rolling Minimal Assistance(to L side with use of bed rails) Supine to Sit Moderate Assistance(assist with LE mgmt, HOB 30, max inflated) Sit to Supine (patient sitting EOB with OT at end of treatment) Scooting Moderate Assistance(forward to EOB with draw pad, CGA laterally on side of bed) Sit to Stand (unsafe for progression) Stand to Sit Bed to Chair (unsafe for progression at this time) Toilet/Commode Gait Stairs Curb Step Car Transfer Balance: Static Sitting;Dynamic Sitting Static Sitting Balance: Poor+ Able to maintain with minimal assistance from individual or chair Dynamic Sitting Balance: Poor Able to sit unsupported with Mod A and reach to ipsilatera/front - cant cross midline Activity Tolerance: Sitting Activity Sitting Activity: EOB sitting to complete seated exercises Sitting Activity Tolerance (in minutes): 10 JH-HLM: 3: Sit at edge of bed Please see discipline specific clinical documentation flowsheet for complete details for this therapy evaluation/treatment. SIGNATURE: Melvi Ledezma PTA PATIENT NAME: Jorge Covington DATE: January 31, 2019 TIME: 12:59 PM [facility] Basic Metabolic Panlon 01-30 Anion gap [Moles/Vol] 12 mmol/L Normal 9-18 [facility] Comment on above: Performed By: #### C BC, BMP ####[facility] [address] [place] [address] Calcium [Mass/Vol] 9.5 mg/dL Normal 8.5-10.2 [facility] Comment on above: Performed By: #### C BC, BMP ####[facility] [address] [place] [address] Chloride [Moles/Vol] 100 mmol/L Normal 97-105 [facility] Comment on above: Performed By: #### C RAFAEL, BMP ####[facility] [address] [place] [address] CO2 [Moles/Vol] 26 mmol/L Normal 22-30 [facility] Comment on above: Performed By: #### C RAFAEL, BMP ####[facility] [address] [place] [address] Creatinine [Mass/Vol] 0.79 mg/dL Normal 0.73-1.22 [facility] Comment on above: Performed By: #### C BC, BMP ####[facility] [address] [place] [address] eGFR- Amer. >60 Normal [facility] Comment on above: Performed By: #### C RAFAEL, BMP ####[facility] [address] [place] [address] GFR/1.73 sq M predicted among non-blacks MDRD (S/P/Bld) [Vol rate/Area] mL/min/{1.73_m2} Normal [facility] Comment on above: Result Comment: eGFR (Estimated GFR) Units of measure: mL/min/1.73 meters squared eGFR is derived from the reexpressed MDRD Study equation using the following parameters: serum creatinine, age, gender and race. The creatinine assay has been calibrated to be traceable to IDMS. An eGFR <60 mL/min/1.73m2 for >3 months is consistent with chronic kidney disease. Refer to KDOQI guidelines for clinical interpretation. In patients with unstable renal function, e.g. those with acute kidney injury, the eGFR may not accurately reflect actual GFR. Performed By: #### C BC, BMP ####[facility] [address] [place] [address] Glucose [Mass/Vol] 108 mg/dL High 74-99 [facility] Comment on above: Result Comment: The [place] [employer] (ADA) provides guidance for cutoff values for fasting glucose and random glucose. The ADA defines fasting as no caloric intake for at least 8 hours. Fasting plasma glucose results between 100 to 125 mg/dL indicate increased risk for diabetes (prediabetes). Fasting plasma glucose results greater than or equal to 126 mg/dL meet the criteria for diagnosis of diabetes. In the absence of unequivocal hyperglycemia, results should be confirmed by repeat testing. In a patient with classic symptoms of hyperglycemia or hyperglycemic crisis, random plasma glucose results greater than or equal to 200 mg/dL meet the criteria for diagnosis of diabetes. Reference: Standards of Medical Care in Diabetes 2016, [place] [employer]. Diabetes Care. 2016.39(Suppl 1). Performed By: #### C , BMP ####[facility] [address] [place] [address] Potassium [Moles/Vol] 4.4 mmol/L Normal 3.7-5.1 [facility] Comment on above: Performed By: #### C , BMP ####[place] [address] Sodium [Moles/Vol] 138 mmol/L Normal 136-144 [facility] Comment on above: Performed By: #### C , BMP ####[place] [address] Urea nitrogen [Mass/Vol] 24 mg/dL Normal 9-24 [facility] Comment on above: Performed By: #### C , BMP ####[facility] [address] [place] [address] CBCon 01-30-2019 Erythrocyte distribution width (RBC) [Ratio] 17.8 % High 11.5-15.0 [facility] Comment on above: Performed By: #### C BC, BMP ####[place] [address] Hematocrit (Bld) [Volume fraction] 40.4 % Normal 39.0-51.0 [facility] Comment on above: Performed By: #### C BC, BMP ####[facility] [address] [place] [address] Hemoglobin (Bld) [Mass/Vol] 12.9 g/dL Low 13.0-17.0 [facility] Comment on above: Performed By: #### Beatriz HALL, BMP ####[place] [address] MCH (RBC) [Entitic mass] 29.8 pG Normal 26.0-34.0 [facility] Comment on above: Performed By: #### Beatriz HALL, BMP ####[facility] [address] [place] [address] MCHC (RBC) [Mass/Vol] 31.9 g/dL Normal 30.5-36.0 [facility] Comment on above: Performed By: #### Beatriz HALL, BMP ####[place] [address] MCV (RBC) [Entitic vol] 93.3 fL Normal 80.0-100.0 [facility] Comment on above: Performed By: #### Beatriz HALL, BMP ####[place] [address] Platelet mean volume (Bld) [Entitic vol] 9.7 fL Normal 9.0-12.7 [facility] Comment on above: Performed By: #### Beatriz HALL, BMP ####[place] [address] Platelets (Bld) [#/Vol] 375 10*3/uL Normal 150-400 [facility] Comment on above: Performed By: #### Beatriz HALL, BMP ####[place] [address] RBC (Bld) [#/Vol] 4.33 10*6/uL Normal 4.20-6.00 [facility] Comment on above: Performed By: #### Beatriz HALL, BMP ####[place] [address] WBC (Bld) [#/Vol] 8.69 10*3/uL Normal 3.70-11.00 [facility] Comment on above: Performed By: #### Beatriz HALL, BMP ####[place] [address] NURSING PROGon 01-30-2019 NURSING PROG HNO ID: [id number] Author: Zac (Rn) VIKTOR Lyles Service: Nursing Author Type: Registered Nurse Type: Nursing Progress Note Filed: 01/30/2019 8:53 AM Note Text: Nursing Progress Note Patient Name: Jorge Covington Patient Location: [id number] Daily Note: Pt laying in bed, a/ox3, lungs cta slightly diminished in bases, on RA, denies sob, cough, cp. abd large but nontender +bsx4, no edema. Denies pain at this time. SR 71 on tele. This note was completed by: Zac Lyles RN [facility] PROGRESSon 01-30-2019 PROGRESS HNO ID: [id number] Author: Shirley Romo Service: ? Author Type: Physician Type: Progress Notes Filed: 01/30/2019 9:16 AM Note Text: INTERNAL MEDICINE PROGRESS NOTE SERVICE DATE: 01/30/2019 SERVICE TIME: 9:14 AM ADMITTING PHYSICIAN: Shirley Romo Subjective CHIEF COMPLAINT: none Current Facility-Administered Medications Medication Dose Route Frequency - levothyroxine 125 mcg tab(s) (SYNTHROID) 125 mcg ORAL DAILY (6 AM) - pantoprazole DR 40 mg tab(s) (PROTONIX) 40 mg ORAL DAILY (6 AM) - docusate 100 mg oral liquid (DIOCTO, COLACE) 100 mg ORAL BID - acetaminophen 1,000 mg tab(s) (TYLENOL) 1,000 mg ORAL q 6 H PRN - polyethylene glycol 3350 17 g packet (MIRALAX, GLYCOLAX) 17 g ORAL DAILY - senna 8.6 mg tab(s) (SENOKOT) 8.6 mg ORAL BID PRN - baclofen 10 mg tab(s) (LIORESAL) 10 mg ORAL TID - nicotine 14 mg/24 hr 1 Patch (NICODERM) 1 Patch TRANSDERMAL DAILY - NaCl 0.9% 3-5 mL 3-5 mL INTRAVENOUS q 12 H - ipratropium-albuterol 3 mL nebulizer solution (DUONEB) 3 mL INHALATION q 4 H while awake - ondansetron orally disintegrating 4 mg tab(s) (ZOFRAN ODT) 4 mg ORAL q 6 H PRN Or - ondansetron (PF) 4 mg injection (ZOFRAN) 4 mg INTRAVENOUS q 6 H PRN - nicotine -- REMOVE patch OTHER DAILY And - nicotine - verify patch OTHER q 8 H - fenofibrate 200 mg cap(s) (LOFIBRA) 200 mg ORAL DAILY WITH BREAKFAST - oxybutynin XL 5 mg tab(s) (DITROPAN XL) 5 mg ORAL DAILY - heparin 5,000 Units injection 5,000 Units SUBCUTANEOUS q 12 H INTERVAL HISTORY OF PRESENT ILLNESS: Pt doing well he is on room air currently . States he doesn't like to wear the bipap at night but I stressed the importance of this. Waiting on approval for SNF hopefully this will occur tomorrow Objective PHYSICAL EXAM: Patient Vitals for the past 24 hrs: BP Temp Temp src Pulse Resp SpO2 Weight 01/30/19 0823 ? ? ? 70 20 ? ? 01/30/19 0813 ? ? ? 69 20 93 % ? 01/30/19 0740 100/62 37.1 ?C (98.7 ?F) Temporal 71 18 96 % ? 01/30/19 0400 93/60 37 ?C (98.6 ?F) Temporal 68 17 95 % 102.3 kg (225 lb 8.5 oz) 01/29/19 2300 96/51 36.2 ?C (97.2 ?F) Temporal 76 19 98 % ? 01/29/192034 ? ? ? 78 18 ? ? 01/29/192028 ? ? ? 78 18 94 % ? 01/29/19 1900 100/58 36.2 ?C (97.1 ?F) Temporal 74 18 97 % ? 01/29/19 1503 119/60 37.1 ?C (98.7 ?F) Temporal 80 18 96 % ? 01/29/19 1153 ? ? ? 84 18 96 % ? 01/29/19 1143 124/68 36.7 ?C (98 ?F) Temporal 81 18 95 % ? Body mass index is 36.4 kg/m?. GENERAL: Alert, no distress, cooperative SKIN: Skin color, texture, turgor normal. No rashes or lesions. OROPHARYNX: Lips, mucosa, and tongue are normal.Teeth and gums, normal. Oropharynx normal. NECK: No jugulovenous distention, No carotid bruits, Carotid pulse normal contour, Supple LUNGS: Lungs clear to auscultation. Good diaphragmatic excursion. CARDIAC: Normal S1 and S2; no rubs, murmurs, or gallops ABDOMEN: Abdomen soft, non-tender, BS normal, No masses or organomegaly EXTREMITIES: Extremities normal, no deformities, edema, clubbing or skin discoloration. Good capillary refill., No ulcers NEURO: Alert, oriented X 3, Gait normal. Non-focal. Reflexes normal and symmetric. Sensation grossly intact., Cranial nerves II-XII intact PULSES: 2+ radial, 2+ carotid DATA: Diagnostic tests reviewed for today's visit: Most recent labs and imaging results. 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 Plan Hopefully dc to SNF tomorrow once approval obtained Medication and Non-Pharmacologic VTE Prophylaxis/Anticoagula nts Anticoagulant AND Antiplatelet Medications (From admission, onward) Start Dose Route Frequency Ordered Stop 01/22/19 223 heparin 5,000 Units injection (Medical Risk Categories) 5,000 Units SUBCUTANEOUS EVERY 12 HOURS 01/22/192228 -- 01/22/19 223 pneumatic compression stockings (sc,va) 01/22/19 181 vte non-pharmacologic prophylaxis - none indicated (sc,va) 01/22/191814 activity - mobilize patient (sc,va) VTE Prophylaxis: VTE prophylaxis appropriate SIGNATURE: Shirley Romo DO PATIENT NAME: Jorge Covington DATE: January 30, 2019 TIME: 9:14 AM PAGER/CONTACT #: [phone] Normal [facility] Basic Metabolic Panlon 01-29 Anion gap [Moles/Vol] 9 mmol/L Normal 12-15 [facility] Comment on above: Performed By: #### C BC, BMP ####[facility] [address] [place] [address] Calcium [Mass/Vol] 9.7 mg/dL Normal 8.5-10.2 [facility] Comment on above: Performed By: #### C BC, BMP ####[facility] [address] [place] [address] Chloride [Moles/Vol] 97 mmol/L Normal 97-105 [facility] Comment on above: Performed By: #### C RAFAEL, BMP ####[facility] [address] [place] [address] CO2 [Moles/Vol] 30 mmol/L Normal 22-30 [facility] Comment on above: Performed By: #### C RAFAEL, BMP ####[place] [address] Creatinine [Mass/Vol] 0.86 mg/dL Normal 0.73-1.22 [facility] Comment on above: Performed By: #### C RAFAEL, BMP ####[facility] [address] [place] [address] eGFR- Amer. >60 Normal [facility] Comment on above: Performed By: #### C RAFAEL, BMP ####[place] [address] GFR/1.73 sq M predicted among non-blacks MDRD (S/P/Bld) [Vol rate/Area] mL/min/{1.73_m2} Normal [facility] Comment on above: Result Comment: eGFR (Estimated GFR) Units of measure: mL/min/1.73 meters squared eGFR is derived from the reexpressed MDRD Study equation using the following parameters: serum creatinine, age, gender and race. The creatinine assay has been calibrated to be traceable to IDMS. An eGFR <60 mL/min/1.73m2 for >3 months is consistent with chronic kidney disease. Refer to KDOQI guidelines for clinical interpretation. In patients with unstable renal function, e.g. those with acute kidney injury, the eGFR may not accurately reflect actual GFR. Performed By: #### C RAFAEL, BMP ####[facility] [address] [place] [address] Glucose [Mass/Vol] 103 mg/dL High 74-99 [facility] Comment on above: Result Comment: The [place] [employer] (ADA) provides guidance for cutoff values for fasting glucose and random glucose. The ADA defines fasting as no caloric intake for at least 8 hours. Fasting plasma glucose results between 100 to 125 mg/dL indicate increased risk for diabetes (prediabetes). Fasting plasma glucose results greater than or equal to 126 mg/dL meet the criteria for diagnosis of diabetes. In the absence of unequivocal hyperglycemia, results should be confirmed by repeat testing. In a patient with classic symptoms of hyperglycemia or hyperglycemic crisis, random plasma glucose results greater than or equal to 200 mg/dL meet the criteria for diagnosis of diabetes. Reference: Standards of Medical Care in Diabetes 2016, [place] [employer]. Diabetes Care. 2016.39(Suppl 1). Performed By: #### C RAFAEL, BMP ####[facility] [address] [place] [address] Potassium [Moles/Vol] 4.5 mmol/L Normal 3.7-5.1 [facility] Comment on above: Performed By: #### C RAFAEL, BMP ####[place] [address] Sodium [Moles/Vol] 136 mmol/L Normal 136-144 [facility] Comment on above: Performed By: #### C RAFAEL, BMP ####[place] [address] Urea nitrogen [Mass/Vol] 20 mg/dL Normal 9-24 [facility] Comment on above: Performed By: #### C RAFAEL, BMP ####[facility] [address] [place] [address] CBCon 01-29-2019 Erythrocyte distribution width (RBC) [Ratio] 18.0 % High 11.5-15.0 [facility] Comment on above: Performed By: #### C RAFAEL, BMP ####[place] [address] Hematocrit (Bld) [Volume fraction] 40.0 % Normal 39.0-51.0 [facility] Comment on above: Performed By: #### C RAFAEL, BMP ####[facility] [address] [place] [address] Hemoglobin (Bld) [Mass/Vol] 12.6 g/dL Low 13.0-17.0 [facility] Comment on above: Performed By: #### C RAFAEL, BMP ####[facility] [address] [place] [address] MCH (RBC) [Entitic mass] 29.7 pG Normal 26.0-34.0 [facility] Comment on above: Performed By: #### C RAFAEL, BMP ####[facility] [address] [place] [address] MCHC (RBC) [Mass/Vol] 31.5 g/dL Normal 30.5-36.0 [facility] Comment on above: Performed By: #### C RAFAEL, BMP ####[facility] [address] [place] [address] MCV (RBC) [Entitic vol] 94.3 fL Normal 80.0-100.0 [facility] Comment on above: Performed By: #### Beatriz HALL, BMP ####[facility] [address] [place] [address] Platelet mean volume (Bld) [Entitic vol] 9.4 fL Normal 9.0-12.7 [facility] Comment on above: Performed By: #### C RAFAEL, BMP ####[facility] [address] [place] [address] Platelets (Bld) [#/Vol] 363 10*3/uL Normal 150-400 [facility] Comment on above: Performed By: #### Beatriz HALL, BMP ####[facility] [address] [place], [place] [id number] RBC (Bld) [#/Vol] 4.24 10*6/uL Normal 4.20-6.00 [facility] Comment on above: Performed By: #### C RAFAEL, BMP ####[facility] [address] [place], [place] [id number] WBC (Bld) [#/Vol] 7.41 10*3/uL Normal 3.70-11.00 [facility] Comment on above: Performed By: #### Beatriz HALL, BMP ####[facility] [address] [place], [place] [id number] NURSING PROGon 01-29-2019 NURSING PROG HNO ID: [id number] Author: Zac (Rn) Rafal RN Service: Nursing Author Type: Registered Nurse Type: Nursing Progress Note Filed: 01/29/2019 8:03 AM Note Text: Nursing Progress Note Patient Name: Jorge Covington [place] [facility] [id number] Daily Note: Pt is a/ox2, lungs cta, denies sob, cp.was on 2L at 99% states does NOT use at home, took off pt is 95% will continue to monitor. abd large nontender, This note was completed by: Zac Lyles RN [facility] PROGRESSon 01-29-2019 PROGRESS HNO ID: [id number] Author: Shirley Romo Service: ? Author Type: Physician Type: Progress Notes Filed: 01/29/2019 11:32 AM Note Text: INTERNAL MEDICINE PROGRESS NOTE SERVICE DATE: 01/29/2019 SERVICE TIME: 11:31 AM ADMITTING PHYSICIAN: Shirley Romo Subjective CHIEF COMPLAINT: none Current Facility-Administered Medications Medication Dose Route Frequency - levothyroxine 125 mcg tab(s) (SYNTHROID) 125 mcg ORAL DAILY (6 AM) - pantoprazole DR 40 mg tab(s) (PROTONIX) 40 mg ORAL DAILY (6 AM) - doxycycline hyclate 100 mg cap(s) (VIBRAMYCIN) 100 mg ORAL q 12 H - docusate 100 mg oral liquid (DIOCTO, COLACE) 100 mg ORAL BID - acetaminophen 1,000 mg tab(s) (TYLENOL) 1,000 mg ORAL q 6 H PRN - polyethylene glycol 3350 17 g packet (MIRALAX, GLYCOLAX) 17 g ORAL DAILY - senna 8.6 mg tab(s) (SENOKOT) 8.6 mg ORAL BID PRN - baclofen 10 mg tab(s) (LIORESAL) 10 mg ORAL TID - nicotine 14 mg/24 hr 1 Patch (NICODERM) 1 Patch TRANSDERMAL DAILY - NaCl 0.9% 3-5 mL 3-5 mL INTRAVENOUS q 12 H - ipratropium-albuterol 3 mL nebulizer solution (DUONEB) 3 mL INHALATION q 4 H while awake - ondansetron orally disintegrating 4 mg tab(s) (ZOFRAN ODT) 4 mg ORAL q 6 H PRN Or - ondansetron (PF) 4 mg injection (ZOFRAN) 4 mg INTRAVENOUS q 6 H PRN - nicotine -- REMOVE patch OTHER DAILY And - nicotine - verify patch OTHER q 8 H - fenofibrate 200 mg cap(s) (LOFIBRA) 200 mg ORAL DAILY WITH BREAKFAST - oxybutynin XL 5 mg tab(s) (DITROPAN XL) 5 mg ORAL DAILY - heparin 5,000 Units injection 5,000 Units SUBCUTANEOUS q 12 H INTERVAL HISTORY OF PRESENT ILLNESS: Pt doing ok today waiting on snf placement likely have to wait untilmonday now for dc Objective PHYSICAL EXAM: Patient Vitals for the past 24 hrs: BP Temp Temp src Pulse Resp SpO2 Weight 01/29/19 0837 ? ? ? 78 18 ? ? 01/29/19 0827 ? ? ? 74 18 94 % ? 01/29/19 0800 115/64 36.8 ?C (98.3 ?F) Temporal 72 20 94 % ? 01/29/19 0338 131/70 36.9 ?C (98.5 ?F) Oral 61 17 99 % ? 01/29/19 0300 ? 102.4 kg (225 lb 12 oz) 01/28/197 134/74 37 ?C (98.6 ?F) Oral 63 18 99 % ? 01/28/192036 109/79 36.8 ?C (98.2 ?F) Oral 64 18 96 % ? 01/28/192020 ? ? ? 66 18 ? ? 01/28/192013 ? ? ? 70 18 98 % ? 01/28/19 1651 ? ? ? 69 18 ? ? 01/28/19 1643 ? ? ? 66 18 96 % ? 01/28/19 1634 105/58 37.1 ?C (98.8 ?F) Temporal 62 20 96 % ? 01/28/19 1145 136/78 36.9 ?C (98.4 ?F) Temporal 65 18 98 % ? Body mass index is 36.44 kg/m?. GENERAL: Alert, no distress, cooperative SKIN: Skin color, texture, turgor normal. No rashes or lesions. OROPHARYNX: Lips, mucosa, and tongue are normal.Teeth and gums, normal. Oropharynx normal. NECK: No jugulovenous distention, No carotid bruits, Carotid pulse normal contour, Supple LUNGS: few expiratory wheezes CARDIAC: Normal S1 and S2; no rubs, murmurs, or gallops ABDOMEN: Abdomen soft, non-tender, BS normal, No masses or organomegaly EXTREMITIES: Extremities normal, no deformities, edema, clubbing or skin discoloration. Good capillary refill., No ulcers NEURO: Alert, oriented X 3, Gait normal. Non-focal. Reflexes normal and symmetric. Sensation grossly intact., Cranial nerves II-XII intact PULSES: 2+ radial, 2+ carotid DATA: Diagnostic tests reviewed for today's visit: Most recent labs and imaging results. Assessment/Plan Acute respiratory failure?resolved on 2 liters now Copd Decompensated hypothryoidism with myxedema?changing to po thyroid meds tomorrow hypercapnea-resolved Suspect adolfo/ohs uti?proteus sensitive to rocephin GNB septicemia?klebsiella sensitive to rocephin Distended bowel loops due to thyroid likely Plan tom christian Thursday once approval for snf obtained Medication and Non-Pharmacologic VTE Prophylaxis/Anticoagula nts Anticoagulant AND Antiplatelet Medications (From admission, onward) Start Dose Route Frequency Ordered Stop 01/22/192229 heparin 5,000 Units injection (Medical Risk Categories) 5,000 Units SUBCUTANEOUS EVERY 12 HOURS 01/22/192228 -- 01/22/19 223 pneumatic compression stockings (sc,va) 01/22/19 181 vte non-pharmacologic prophylaxis - none indicated (sc,va) 01/22/191814 activity - mobilize patient ([place], [place]) VTE Prophylaxis: VTE prophylaxis appropriate SIGNATURE: Shirley Romo DO PATIENT NAME: Jorge Covington DATE: January 29, 2019 TIME: 11:31 AM PAGER/CONTACT #: [phone] Normal [facility] Basic Metabolic Panlon 01-28 Anion gap [Moles/Vol] 11 mmol/L Normal 12-15 [facility] Comment on above: Performed By: #### C BC, BMP ####[facility] [address] [place] [address] Calcium [Mass/Vol] 9.8 mg/dL Normal 8.5-10.2 [facility] Comment on above: Performed By: #### C BC, BMP ####[facility] [address] [place] [address] Chloride [Moles/Vol] 104 mmol/L Normal 97-105 [facility] Comment on above: Performed By: #### C BC, BMP ####[facility] [address] [place] [address] CO2 [Moles/Vol] 27 mmol/L Normal 22-30 [facility] Comment on above: Performed By: #### C BC, BMP ####[place] [address] Creatinine [Mass/Vol] 0.74 mg/dL Normal 0.73-1.22 [facility] Comment on above: Performed By: #### C BC, BMP ####[place] [address] eGFR- Amer. >60 Normal [facility] Comment on above: Performed By: #### C BC, BMP ####[facility] [address] [place] [address] GFR/1.73 sq M predicted among non-blacks MDRD (S/P/Bld) [Vol rate/Area] mL/min/{1.73_m2} Normal [facility] Comment on above: Result Comment: eGFR (Estimated GFR) Units of measure: mL/min/1.73 meters squared eGFR is derived from the reexpressed MDRD Study equation using the following parameters: serum creatinine, age, gender and race. The creatinine assay has been calibrated to be traceable to IDMS. An eGFR <60 mL/min/1.73m2 for >3 months is consistent with chronic kidney disease. Refer to KDOQI guidelines for clinical interpretation. In patients with unstable renal function, e.g. those with acute kidney injury, the eGFR may not accurately reflect actual GFR. Performed By: #### C BC, BMP ####[facility] [address] [place] [address] Glucose [Mass/Vol] 151 mg/dL High 74-99 [facility] Comment on above: Result Comment: The [place] [employer] (ADA) provides guidance for cutoff values for fasting glucose and random glucose. The ADA defines fasting as no caloric intake for at least 8 hours. Fasting plasma glucose results between 100 to 125 mg/dL indicate increased risk for diabetes (prediabetes). Fasting plasma glucose results greater than or equal to 126 mg/dL meet the criteria for diagnosis of diabetes. In the absence of unequivocal hyperglycemia, results should be confirmed by repeat testing. In a patient with classic symptoms of hyperglycemia or hyperglycemic crisis, random plasma glucose results greater than or equal to 200 mg/dL meet the criteria for diagnosis of diabetes. Reference: Standards of Medical Care in Diabetes 2016, [place] [employer]. Diabetes Care. 2016.39(Suppl 1). Performed By: #### C RAFAEL, BMP ####[facility] [address] [place] [address] Potassium [Moles/Vol] 4.4 mmol/L Normal 3.7-5.1 [facility] Comment on above: Performed By: #### C RAFAEL, BMP ####[facility] [address] [place] [address] Sodium [Moles/Vol] 142 mmol/L Normal 136-144 [facility] Comment on above: Performed By: #### C RAFAEL, BMP ####[facility] [address] [place] [address] Urea nitrogen [Mass/Vol] 16 mg/dL Normal 9-24 [facility] Comment on above: Performed By: #### C RAFAEL, BMP ####[facility] [address] [place] [address] CASE MANAGEMon 01-28-2019 CASE MANAGEM HNO ID: [id number] Author: Florence (Rn) VIKTOR Mullins Service: Care Management Author Type: Registered Nurse Type: Care Mgt Progress Note Filed: 01/28/2019 12:53 PM Note Text: CARE MANAGEMENT PROGRESS NOTE SERVICE DATE: 01/28/2019 SERVICE TIME: 12:49 PM LOS: 6 days Needs Prior to Discharge: Precertification;Discha rge Transportation Call placed to patients Dasia to discuss discharge plan. Their first choice facility [facility] is able to accept. Facility has started precert. agreeable to discharge plan. Discussed with her transportation plan when pt is discharged. reports she doesn't have a vehicle that he would be able to get in and out of. Per PT/OT notes requiring 2 assist for transfers and mobility. felt safest transport plan would be for ambulance. Discussed possible out of pocket cost and agreeable. Per Dr Romo patient is medically ready for discharge once precert can be obtained. SIGNATURE: Florence Mullins RN PATIENT NAME: Jorge Covington DATE: January 28, 2019 TIME: 12:49 PM PAGER/CONTACT #: [phone] Normal [facility] CBCon 01-28-2019 Erythrocyte distribution width (RBC) [Ratio] 18.1 % High 11.5-15.0 [facility] Comment on above: Performed By: #### C RAFAEL, BMP ####[facility] [address] [place] [address] Hematocrit (Bld) [Volume fraction] 38.0 % Low 39.0-51.0 [facility] Comment on above: Performed By: #### C RAFAEL, BMP ####[facility] [address] [place] [address] Hemoglobin (Bld) [Mass/Vol] 12.1 g/dL Low 13.0-17.0 [facility] Comment on above: Performed By: #### C RAFAEL, BMP ####[facility] [address] [place] [address] MCH (RBC) [Entitic mass] 30.1 pG Normal 26.0-34.0 [facility] Comment on above: Performed By: #### C RAFAEL, BMP ####[facility] [address] [place] [address] MCHC (RBC) [Mass/Vol] 31.8 g/dL Normal 30.5-36.0 [facility] Comment on above: Performed By: #### C BC, BMP ####[facility] [address] [place] [address] MCV (RBC) [Entitic vol] 94.5 fL Normal 80.0-100.0 [facility] Comment on above: Performed By: #### C BC, BMP ####[facility] [address] [place] [address] Platelet mean volume (Bld) [Entitic vol] 9.8 fL Normal 9.0-12.7 [facility] Comment on above: Performed By: #### C RAFAEL, BMP ####[facility] [phone] Platelets (Bld) [#/Vol] 349 10*3/uL Normal 150-400 [facility] Comment on above: Performed By: #### C RAFAEL, BMP ####[facility] [address] [place] [phone] RBC (Bld) [#/Vol] 4.02 10*6/uL Low 4.20-6.00 [facility] Comment on above: Performed By: #### C RAFAEL, BMP ####[facility] [address] [place] [phone] WBC (Bld) [#/Vol] 8.04 10*3/uL Normal 3.70-11.00 [facility] Comment on above: Performed By: #### C RAFAEL, BMP ####[facility] [address] [place] [phone] THERAPY NTon 01-28-2019 THERAPY NT HNO ID: [id number] Author: Melvi Ledezma Service: Physical Therapy Author Type: Compound Filler Type: Therapy (PT/OT/Speech/Resp) Filed: 01/28/2019 2:55 PM Note Text: Attestation signed by Faith Grant) Gerardo at 01/31/2019 8:38 AM I reviewed and agree with the assessment as documented above. SIGNATURE: Faith Carrillo, PT DATE: January 31, 2019 TIME: 8:38 AM Physical Therapy Treatment SERVICE DATE: 01/28/2019 SERVICE TIME: 1434 to 1449 ROOM: [place] [address] Recommended Discharge Disposition: Subacute/SNF Recommended Discharge Disposition Comments: Pt currently below baseline, + fall risk; indicates need for continued PT post-acute in SNF setting to improve safety, strength, independence with all mobility prior to return home with spouse Justification For Post Acute Needs: Community discharge potential unknown;Functional status improvement unknown;Good family support;Medically complex;Willing to participate;May not tolerate higher intensity programing;Anticipate that patient will require daily (5x/wk) skilled therapy in a post-acute facility setting at the time of acute hospital discharge Anticipated Discharge Needs: (Recommending SNF ) Recommended Discharge Equipment: No equipment needs anticipated PT Recommendations to Nursing: Utilize bed in chair position;Sit at edge of bed;Not appropriate for OOB activity at this time;Other: See Comment(assist x 2 for safety to EOB to dangle,do not leave unattend) Device: (turn/position schedule) PT 6 Clicks Score: 8 Precautions/Activity Restrictions: Bed/Chair Alarm;Fall Risk;Lines/Tubes/Drains Precaution/Activity Restriction Comments: standard, mobilize ASSESSMENT : Patient pleasant and cooperative throughout session. Patient able to tolerate supine exercises with no adverse effects. Patient reports fatigue after completing PT session. Limited ROM noted in R LE. Min A required with all exercises. At this time, patient would benefit from SNF post acute stay in order to improve activity tolerance, strength, balance and further safety education. Patient Disposition at Start of Session: Supine in Bed;Call Gardner in Reach Patient Disposition at End of Session: Supine in Bed;Call Gardner in Reach Tolerance Limited By Fatigue Physical Therapy Problem List: Cognitive Deficit;Education Deficit;Safety Deficits;Decreased Activity Tolerance;Decreased Range Of Motion;Decreased Strength;Functional Mobility Impairment;Balance Impaired Patient /Caregiver Goals: Go Home(however, understands need for rehab) Goals for Plan of Care: Able to perform HEP with: Verbal Cues Only(B LEs x 15-20 reps) Rolling with: Contact Guard Assistance Transfer supine to/from sit with: Contact Guard Assistance Transfer: Transfer bed to/from chair with slide board, even and uneven surfaces, no more than CGA to increase safety with OOB activity Goal: -Improve static and dynamic sitting to require no more than CGA to allow for safety with all EOB activities and slideboard transfers Goal: -all above to be achieved with pulse OX >90% Progress Toward Goals: Progressing slower than expected Due To: Acuity of illness, fatigue Rehab Potential: Fair PLAN: Treatment Frequency (times per week): 4 Current admission Treatment Interventions: Education;Energy Conservation Training;Joint Mobility;Strengthening; Functional Mobility Training;Balance Training;Neuromuscular Re-education Plan of Care developed with: Patient TREATMENT INTERVENTIONS: Therapy Diagnosis: Reduced mobility-other Interventions Provided: Therapeutic Exercise (35512) Therapeutic Exercise (87484) Treatment Minutes: 15 1 unit Skilled Intervention(s): Instruction in therapeutic exercise for bilateral AP, QS with 5 sec hold (limited), GS with 5 second hold, heel slides, SAQ, hip abduction, SLR x 15 reps each Verbal and tactile cuing provided for correct performance of exercises Cues for diaphragmatic breathing Re-emphasized the importance of frequent performance of anti-embolic exercises Total Timed Code Treatment Minutes: 15 Total Treatment Time (minutes): 15 SUBJECTIVE: Current Hospital Course: Chart reviewed and no significant medical updates relevant to therapy were noted Reason for Physical Therapy Consult : critical care therapy Relevant Past Medical History: COPD,B LE weakness, hypothyroidism Patient Report: Patient agreeableto participate in PT. Patient states, I am tired and weak today. I want to get better so I can stand again. Patient appropriate for PT per RNYadira. Home Environment Patient Lives With: Spouse Assistance Available: 24 Hour(from spouse) Entry To Home: Stairs;With Rail;Ramp Number Of Stairs Into Home: 3(with B hand rails, can utilize simultaneously, uses ramp) Number Of Stairs To Bed/Bath: 0 Tub/Shower Type: walk in shower with chair, varies between sponge bathing and assist into showers with spouse Laundry: spouse completes Equipment Owned: Hospital Bed;Wheeled Walker;Shower Chair;Wheelchair;Other: See Comment(slide board, brace/AFO R LE) Prior Functional Level: Required Assistance;History of Falls Assistance Required With: Cleaning;Laundry;Meals; Medication Management;Safety;Self Care;Shopping;Transport ation;Wheelchair Mobility 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, pt is supervision for slideboard transfers to/from w/c/commode/shower chair/hospital bed/car, spouse assists with all ADLs, spouse fully completes all IADLs and driving, reports x 2 falls out of w/c in the past 6 months, mod I for w/c management around home and up ramp into home(active with home PT services, + wears brace/AFO R LE) OBJECTIVE: CURRENT FUNCTIONAL STATUS: OOB mobility deferred this session secondary to fatigue Current Functional Mobility Assist Level Additional Information Rolling Maximal Assistance(x 2 trials to R, x 1 trial to L, + use of bed rails) Supine to Sit Moderate Assistance(for B LEs R>L and trunk,HOB 30 degrees, + use of bed rails) Sit to Supine Maximal Assistance(x 2 for trunk and B LEs) Scooting Maximal Assistance(/total assist x 2 up in bed with pad) Sit to Stand (unsafe for progression/not appropriate at this time) Stand to Sit Bed to Chair (unsafe for progression at this time) Toilet/Commode Gait Stairs Curb Step Car Transfer -[facility]: 3: Sit at edge of bed Please see discipline specific clinical documentation flowsheet for complete details for this therapy evaluation/treatment. SIGNATURE: Melvi Ledezma PTA PATIENT NAME: Jorge Covington DATE: January 28, 2019 TIME: 2:53 PM [facility] THERAPY NT HNO ID: [id number] Author: Krystal Vasquez/Krysten Harrington Service: Occupational Therapy Author Type: Occupational Therapist Type: Therapy (PT/OT/Speech/Resp) Filed: 01/28/2019 2:32 PM Note Text: Occupational Therapy Treatment SERVICE DATE: 01/28/2019 SERVICE TIME: 1317 to 1343 ROOM: [place] [address] Recommended Discharge Disposition: Subacute/SNF Recommended Discharge Disposition Comments: Pt is presenting well below baseline with decreased strength and activity tolerance. Requires continued skilled OT to maximize independence and safety in ADLs and functional mobility Justification For Post Acute Needs: Living the community premorbidly;Medically complex;Willing to participate;May not tolerate higher intensity programing;Anticipate that patient will require daily (5x/wk) skilled therapy in a post-acute facility setting at the time of acute hospital discharge Anticipated Discharge Needs: (Recommending SNF ) OT Recommendations to Nursing: With assist of 2 people;Utilize bed in Chair Position;Edge of bed ADL?s;Encourage patient participation with in-bed ADL?s OT 6 Clicks Score: 12 Precautions/Activity Restrictions: Bed/Chair Alarm;Fall Risk;Lines/Tubes/Drains Precaution/Activity Restriction Comments: standard, mobilize ASSESSMENT: Pt continues to present with balance, functional activity tolerance, functional mobility, ADL and cognitive impairments. Requires Moderate-Maximal Assist of 2 for bed mobility and Minimal-Maximal Assist to maintain sitting balance at EOB for 9 minutes. Pt confused and requires extended time for all tasks/education however actively participates in session as able; appears fearful of falling.Continues to demonstrate need for continued OT services during acute stay and post acute stay to increase ease, safety and independence during ADLs and functional transfers as pt is functioning well below baseline and a HIGH fall risk. Patient Disposition at Start of Session: Supine in Bed;Bed Alarm;Call Gardner in Reach(wedge pillow R side) Patient Disposition at End of Session: Supine in Bed;Call Gardner in Reach;Bed Alarm(wedge pillow R side, bed in chair position) Tolerance Limited By Fatigue Occupational Therapy Problem List: Cognitive Deficit;Education Deficit;Safety Deficits;Impaired Self Care;Decreased Activity Tolerance;Functional Mobility Impairment;Balance Impaired;Decreased Strength Patient /Caregiver Goals: Walk Goals for Plan of Care: Grooming with: Set Up Upper Body Dressing with: Set Up Lower Body Dressing with: Contact Guard Assistance(with AE; seated EOB ) Chair Transfer with: Minimal Assistance(use of slide board ) Tolerate (minutes of functional activity): 30 Functional Activity with: Contact Guard Assistance Increased Awareness of Cognitive Impairments as Related to ADL's/IADL's: Demonstrated Progress Toward Goals: Progressing slower than expected Due To: decreased activity tolerance Rehab Potential: Fair PLAN: Treatment Frequency (times per week): 2 Current admission Treatment Interventions: Education;Self Care / Home Management;Energy Conservation Training;Functional Mobility Training;Balance Training;Cognitive Training;Strengthening Plan of Care developed with: Patient TREATMENT INTERVENTIONS: Therapy Diagnosis: Reduced mobility-other;Decrease d activities of daily living (ADL);Muscle Weakness (generalized);General symptoms and signs-other;Signs and Symptoms Involving Cognitive Functions and Awareness Interventions Provided: Therapeutic Activity (57933);Self Senior Living Management (18312) Therapeutic Activity (08917) Treatment Minutes: 15 1 unit Skilled Intervention(s): Instructed and provided with verbal, visual, tactile cues and facilitated pt in supine to sit pushing with upper extremities to sit up with safe log roll technique. Instructed and provided with verbal, visual, tactile cues in effective use of BUEs to scoot to EOB; facilitated with use of draw pad. Instructed, cued and facilitated in anterior and R lateral weight shifting at EOB. Cued in proper hand placement and BUE support on bed surface to maintain balance EOB. Instructed, cued and facilitated in rolling to L and R. Pt instructed, verbally cued and facilitated in safe technique for sit to supine with log roll technique. Self Senior Living Management (67591) Treatment Minutes: 9 1 unit Skilled Intervention(s): Pt educated in role of OT. Pt educated in importance of out of bed activity for rehabilitation and to prevent functional decline and other negative effects of immobility. Provided instruction, cuing and facilitation in safe technique for grooming at EOB. Vitals and symptoms monitored throughout session to ensure safe progression of functional activities. Educated in benefits of bed in chair position. Education in OT POC and discharge recommendation with rationale. RN, DOWEL SETTING MACHINE OPERATOR and CM notified of pt status and recommendations. Total Timed Code Treatment Minutes: 24 Total Treatment Time (minutes): 26 SUBJECTIVE: Current Hospital Course: Chart reviewed; Patient is a 63 y/o male Reason for Occupational Therapy Consult: Pt admitted with Myxedema coma, septicemia, and acute respiratory failure; OT consulted for Critical Care Therapy Relevant Past Medical History: COPD,B LE weakness, hypothyroidism Patient Report: I'd like to be able to walk again. I haven't walked since April. Home Environment Patient Lives With: Spouse Assistance Available: 24 Hour(from spouse) Entry To Home: Stairs;With Rail;Ramp Number Of Stairs Into Home: 3(with B hand rails, can utilize simultaneously, uses ramp) Number Of Stairs To Bed/Bath: 0 Tub/Shower Type: walk in shower with chair, varies between sponge bathing and assist into showers with spouse Laundry: spouse completes Equipment Owned: Hospital Bed;Wheeled Walker;Shower Chair;Wheelchair;Other: See Comment(slide board, brace/AFO R LE) Prior Functional Level: Required Assistance;History of Falls Assistance Required With: Cleaning;Laundry;Meals; Medication Management;Safety;Self Care;Shopping;Transport ation;Wheelchair Mobility 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, pt is supervision for slideboard transfers to/from w/c/commode/shower chair/hospital bed/car, spouse assists with all ADLs, spouse fully completes all IADLs and driving, reports x 2 falls out of w/c in the past 6 months, mod I for w/c management around home and up ramp into home(active with home PT services, + wears brace/AFO R LE) OBJECTIVE: Cognition/Communication Deficits Orientation Deficits: Confused;Not oriented to Place;Not oriented to Time(stated December, then April) Responsiveness: Alert;Awake Executive Function Deficits: Insight to Deficits Cognitive Clinical Tests and Screens: Short Blessed Test-administered at time of initial evaluation 1. What Year Is It Now?: Correct 2. What Month Is It Now?: Incorrect 3. What Time is it? (WIthin 1 hour): Correct 4. Count Aloud Backwards 20 to 1 (Errors): 2 5. Months of the Year in Reverse Order (Errors): 2 6. Memory Phrase (Errors) : 2 Short Blessed Final Score: 15 CURRENT FUNCTIONAL STATUS: Current Activities of Daily Living Assist Level Feeding Modified Independent(per observation) Grooming Maximal Assistance(for brushing hair EOB) Bathing Upper Body Moderate Assistance(per clinical judgment bed level) Bathing Lower Body Maximal Assistance(using towelettes; unable to thoroughly wash thigh ) Not performed this date Dressing Upper Body Moderate Assistance(per clinical judgment bed level) Dressing Lower Body Total Assistance(per clinical judgement ) Toileting Total Assistance(per clinical judgement ) Functional Mobility Assist Level Rolling Minimal Assistance(HOB elevated, R-2x, L-2x) Supine to Sit Moderate Assistance(of 2; HOB elevated, to R) Sit to Supine Maximal Assistance(of 1 and Min A of 1; HOB min elevated, from R) Scooting Minimal Assistance(to EOB; Min of 2 in supine, HOB flat) Sit to Stand (deferred as pt typically does not stand baseline) Stand to Sit Bed to Chair (deferred d/t decreased act tolerance/sitting balance) Toilet/Commode Functional Mobility Balance: Static Sitting;Dynamic Sitting Static Sitting Balance: Poor(to Poor+ (retro, to L lateral lean)) Unable to maintain balance - requires mod/max support individual or chair(to Poor+ (retro, to L lateral lean)) Dynamic Sitting Balance: Poor Able to sit unsupported with Mod A and reach to ipsilatera/front - cant cross midline Activity Tolerance: Sitting Activity Sitting Activity: EOB grooming Sitting Activity Tolerance (in minutes): 9 Vital Signs Pre Assessment: O2 Equipment Pre O2 Equipment: Nasal Cannula Pre Oxygen Requirement: 2L/min Intra Assessment 1: SpO2 Intra 1, Heart Rate Intra 1 Intra Heart Rate 1: 114 Intra SpO2 1: 92(to 93) Post Assessment: SpO2 Post Post SpO2: 97 Please see discipline specific clinical documentation flowsheet for complete details for this therapy evaluation/treatment. SIGNATURE: Krystal Harrington OT/Eliseo PATIENT NAME: Jorge Covington DATE: January 28, 2019 TIME: 2:05 PM [facility] THERAPY NT HNO ID: [id number] Author: Krystal Vasquez/Eliseo) Len Service: Occupational Therapy Author Type: Occupational Therapist Type: Therapy (PT/OT/Speech/Resp) Filed: 01/28/2019 1:09 PM Note Text: OCCUPATIONAL THERAPY MISSED VISIT SERVICE DATE: 01/28/2019 SERVICE TIME: 1305 to 1305 ROOM: [place] [address] Attempted Treatment. Patient not seen due to Eating. Will re-attempt as schedule allows. SIGNATURE: Krystal Harrington OT/Eliseo PATIENT NAME: Jorge Covington DATE: January 28, 2019 TIME: 1:09 PM [facility] Basic Metabolic Panlon 01-27 Anion gap [Moles/Vol] 10 mmol/L Normal 9-18 [facility] Comment on above: Performed By: #### MILES LUCIO ####[facility] [address] [place] [address]#### FREET3 ####[facility] [place], [place] [phone] Calcium [Mass/Vol] 9.3 mg/dL Normal 8.5-10.2 [facility] Comment on above: Performed By: #### MILES LUCIO ####[facility] [address] [place] [address]#### FREET3 ####[facility] [place], [place] [phone] Chloride [Moles/Vol] 106 mmol/L High 97-105 [facility] Comment on above: Performed By: #### Beatriz BC, BMP ####[place] [address]#### FREET3 ####[place] [address] [place] [phone] CO2 [Moles/Vol] 27 mmol/L Normal 22-30 [facility] Comment on above: Performed By: #### Beatriz BC, BMP ####[place] [address]#### FREET3 ####[place] [address] [place] [address] Creatinine [Mass/Vol] 0.79 mg/dL Normal 0.73-1.22 [facility] Comment on above: Performed By: #### Beatriz HALL, BMP ####[place] [address]#### FREET3 ####[place] [address] [place] [phone] eGFR- Amer. >60 Normal [facility] Comment on above: Performed By: #### Beatriz HALL, BMP ####[place] [address]#### FREET3 ####[place] [address] [place] [phone] GFR/1.73 sq M predicted among non-blacks MDRD (S/P/Bld) [Vol rate/Area] mL/min/{1.73_m2} Normal [facility] Comment on above: Result Comment: eGFR (Estimated GFR) Units of measure: mL/min/1.73 meters squared eGFR is derived from the reexpressed MDRD Study equation using the following parameters: serum creatinine, age, gender and race. The creatinine assay has been calibrated to be traceable to IDMS. An eGFR <60 mL/min/1.73m2 for >3 months is consistent with chronic kidney disease. Refer to KDOQI guidelines for clinical interpretation. In patients with unstable renal function, e.g. those with acute kidney injury, the eGFR may not accurately reflect actual GFR. Performed By: #### Beatriz HALL BMP ####[place] [address]#### FREET3 ####[address] [phone] Glucose [Mass/Vol] 110 mg/dL High 74-99 [facility] Comment on above: Result Comment: The [place] [employer] (ADA) provides guidance for cutoff values for fasting glucose and random glucose. The ADA defines fasting as no caloric intake for at least 8 hours. Fasting plasma glucose results between 100 to 125 mg/dL indicate increased risk for diabetes (prediabetes). Fasting plasma glucose results greater than or equal to 126 mg/dL meet the criteria for diagnosis of diabetes. In the absence of unequivocal hyperglycemia, results should be confirmed by repeat testing. In a patient with classic symptoms of hyperglycemia or hyperglycemic crisis, random plasma glucose results greater than or equal to 200 mg/dL meet the criteria for diagnosis of diabetes. Reference: Standards of Medical Care in Diabetes 2016, [place] [employer]. Diabetes Care. 2016.39(Suppl 1). Performed By: #### Beatriz HALL BMP ####[place] [address]#### FREET3 ####[place] [phone] Potassium [Moles/Vol] 4.1 mmol/L Normal 3.7-5.1 [facility] Comment on above: Performed By: #### Beatriz HALL BMP ####[place] [address]#### FREET3 ####[address] [phone] Sodium [Moles/Vol] 143 mmol/L Normal 136-144 [facility] Comment on above: Performed By: #### Beatriz HALL, BMP ####[place] [address]#### FREET3 ####[place] [phone] Urea nitrogen [Mass/Vol] 11 mg/dL Normal 9-24 [facility] Comment on above: Performed By: #### C BC, BMP ####[place] [address]#### FREET3 ####[place] [address] [place] [phone] CBCon 01-27-2019 Erythrocyte distribution width (RBC) [Ratio] 18.2 % High 11.5-15.0 [facility] Comment on above: Performed By: #### C BC, BMP ####[place] [address]#### FREET3 ####[address] [place] [phone] Hematocrit (Bld) [Volume fraction] 36.3 % Low 39.0-51.0 [facility] Comment on above: Performed By: #### C BC, BMP ####[place] [address]#### FREET3 ####[place] [address] [phone] Hemoglobin (Bld) [Mass/Vol] 11.3 g/dL Low 13.0-17.0 [facility] Comment on above: Performed By: #### C BC, BMP ####[place] [address]#### FREET3 ####[place] [address] [place] [phone] MCH (RBC) [Entitic mass] 29.5 pG Normal 26.0-34.0 [facility] Comment on above: Performed By: #### C BC, BMP ####[place] [address]#### FREET3 ####[place] [address] [place] [phone] MCHC (RBC) [Mass/Vol] 31.1 g/dL Normal 30.5-36.0 [facility] Comment on above: Performed By: #### Beatriz BC, BMP ####[facility] [address] [place] [address]#### FREET3 ####[facility] [place] [address]levelC[place], [place] [phone] MCV (RBC) [Entitic vol] 94.8 fL Normal 80.0-100.0 [facility] Comment on above: Performed By: #### C BC, BMP ####[facility] [address] [place] [address]#### FREET3 ####[place] [address] [place] [address], [place] [phone] Platelet mean volume (Bld) [Entitic vol] 9.8 fL Normal 9.0-12.7 [facility] Comment on above: Performed By: #### Beatriz HALL, BMP ####[place] [address]#### FREET3 ####[place] [address] [place] [address], [place] [phone] Platelets (Bld) [#/Vol] 308 10*3/uL Normal 150-400 [facility] Comment on above: Performed By: #### Beatriz HALL, BMP ####[place] [address]#### FREET3 ####[place] [address] [place] [place] [address] [place], [place] [phone] RBC (Bld) [#/Vol] 3.83 10*6/uL Low 4.20-6.00 [facility] Comment on above: Performed By: #### C RAFAEL, BMP ####[place] [address]#### FREET3 ####[place] [address] [place] [address], [place] [phone] WBC (Bld) [#/Vol] 8.30 10*3/uL Normal 3.70-11.00 [facility] Comment on above: Performed By: #### Beatriz BC, BMP ####[place] [address] [place] [phone]#### FREET3 ####[facility] [address] [place], [place] [phone] CONSULT PROGozacarias 01-27-2019 CONSULT PROG HNO ID: [id number] Author: Nathanael Lewis MD Service: Endocrinology Author Type: Physician Type: Consult Progress Note Filed: 01/27/2019 11:22 AM Note Text: Endocrinology Progress Note IMPRESSION: Severe hypothyroidism - OK to change to PO levothyroxine PLAN: ? Stop daily IV LT4 ? Start levothyroxine 0.125 mg daily tomorrow - stressed need for lifelong treatment with patient ? Recheck TFTs again in 6-8 weeks INTERVAL HISTORY: Improved, eating meals. No hypothermia. Current Facility-Administered Medications Medication Dose Route Frequency - acetaminophen 1,000 mg tab(s) (TYLENOL) 1,000 mg ORAL q 6 H PRN - polyethylene glycol 3350 17 g packet (MIRALAX, GLYCOLAX) 17 g ORAL DAILY - senna 8.6 mg tab(s) (SENOKOT) 8.6 mg ORAL BID PRN - baclofen 10 mg tab(s) (LIORESAL) 10 mg ORAL TID - nicotine 14 mg/24 hr 1 Patch (NICODERM) 1 Patch TRANSDERMAL DAILY - NaCl 0.9% 3-5 mL 3-5 mL INTRAVENOUS q 12 H - ipratropium-albuterol 3 mL nebulizer solution (DUONEB) 3 mL INHALATION q 4 H while awake - ondansetron orally disintegrating 4 mg tab(s) (ZOFRAN ODT) 4 mg ORAL q 6 H PRN Or - ondansetron (PF) 4 mg injection (ZOFRAN) 4 mg INTRAVENOUS q 6 H PRN - nicotine -- REMOVE patch OTHER DAILY And - nicotine - verify patch OTHER q 8 H - fenofibrate 200 mg cap(s) (LOFIBRA) 200 mg ORAL DAILY WITH BREAKFAST - oxybutynin XL 5 mg tab(s) (DITROPAN XL) 5 mg ORAL DAILY - heparin 5,000 Units injection 5,000 Units SUBCUTANEOUS q 12 H - cefTRIAXone 1 g in D5W 100 mL MB+ (ROCEPHIN) 1 g INTRAVENOUS q 24 H - docusate 100 mg oral liquid (DIOCTO, COLACE) 100 mg ORAL BID - pantoprazole DR 40 mg tab(s) (PROTONIX) 40 mg ORAL DAILY (6 AM) - doxycycline hyclate 100 mg cap(s) (VIBRAMYCIN) 100 mg ORAL q 12 H - [START ON 01/28/2019] levothyroxine 125 mcg tab(s) (SYNTHROID) 125 mcg ORAL DAILY (6 AM) PHYSICAL EXAM:BP 143/82 Pulse 61 Temp 36.8 ?C (98.2 ?F) (Temporal) Resp 20 Ht 167.6 cm (5' 6 ) Wt 108.8 kg (239 lb 13.8 oz) SpO2 98% BMI 38.71 kg/m? General appearance: Well-appearing, obese (BMI greater than 30) male, alert, in no acute distress, well-hydrated, well nourished. Skin: Skin color, texture, turgor normal, no suspicious rashes or lesions Head: normocephalic, no masses, lesions, tenderness or abnormalities Eyes: Anicteric sclera. Pupils are equally round. Extraocular movements are intact. Ears: not examined Nose/Sinuses: Nares normal. No drainage or sinus tenderness. Oropharynx: Lips, mucosa, and tongue normal, teeth and gums not examined. Neck: Supple, no adenopathy; no palpable thyroid enlargement. Lungs: Breathing unlabored. Heart: RRR. No ectopy Abdomen: deferred LAB DATA: Free T3/T4 levels now measurable, improving. Nathanael Lewis MD [facility] Endocrinology and Metabolism [place] [facility] January 27, 2019 11:17 AM Normal [facility] Free T3on 01-27-2019 Free T3 [Mass/Vol] 1.4 pg/mL Low 2.3-4.1 [facility] Comment on above: Performed By: #### C BC, BMP ####[facility] [address] [place] [phone]#### FREET3 ####[facility] [place], [place] [phone] Free T4on 01-27-2019 Free T4 [Mass/Vol] 1.3 ng/dL Normal 0.9-1.7 [facility] Comment on above: Performed By: #### F T4 ####[facility] [place], [place] [phone] NUTRITIONon 01-27-2019 NUTRITION HNO ID: [id number] Author: Yue Marquez Service: Nutrition Therapy Author Type: Registered Dietitian Type: Nutrition Filed: 01/27/2019 5:03 PM Note Text: NUTRITION THERAPY PROGRESS NOTE SERVICE DATE: 01/27/2019 SERVICE TIME:2:45 pm NUTRITION CARE PLAN Intervention: Monitor intake. Reviewed physician progress notes and labs. Monitor and Evaluation: Goal: Meet >75% of estimated needs Discharge Nutrition Recommendations: Diet: Regular Interval History: Shirley Romo, DO Acute respiratory failure?resolved on 2 liters now Copd Decompensated hypothryoidism with myxedema?changing to po thyroid meds tomorrow hypercapnea-resolved Extubated 01/25 Orders Placed This Encounter DIET REGULAR Standing Status: Standing Number of Occurrences: 1 Lines and Drains: Peripheral 01/24/191999 Assessment Short Left Antecubital 22 Gauge (Active) Height: 167.6 cm (5' 6 ) Admission Weight: 107 kg (236 lb) Current Weight: 108.8 kg (239 lb 13.8 oz) Body mass index is 38.71 kg/m?. class 2 obesity Recent Labs 01/27/19 0610 01/26/19 0438 GLUC 110* 128* BUN 11 9 CREAT 0.79 0.70* NA 143 147* K 4.1 3.9 CHLOR 106* 109* CO2 27 27 P -- 2.9 HB 11.3* 12.0* HCT 36.3* 37.7* WBC 8.30 7.97 MG -- 2.1 Current Facility-Administered Medications Medication Dose Route Frequency - pantoprazole DR 40 mg tab(s) (PROTONIX) 40 mg ORAL DAILY (6 AM) - doxycycline hyclate 100 mg cap(s) (VIBRAMYCIN) 100 mg ORAL q 12 H - docusate 100 mg oral liquid (DIOCTO, COLACE) 100 mg ORAL BID - acetaminophen 1,000 mg tab(s) (TYLENOL) 1,000 mg ORAL q 6 H PRN - polyethylene glycol 3350 17 g packet (MIRALAX, GLYCOLAX) 17 g ORAL DAILY - senna 8.6 mg tab(s) (SENOKOT) 8.6 mg ORAL BID PRN - baclofen 10 mg tab(s) (LIORESAL) 10 mg ORAL TID - nicotine 14 mg/24 hr 1 Patch (NICODERM) 1 Patch TRANSDERMAL DAILY - NaCl 0.9% 3-5 mL 3-5 mL INTRAVENOUS q 12 H - ipratropium-albuterol 3 mL nebulizer solution (DUONEB) 3 mL INHALATION q 4 H while awake - ondansetron orally disintegrating 4 mg tab(s) (ZOFRAN ODT) 4 mg ORAL q 6 H PRN Or - ondansetron (PF) 4 mg injection (ZOFRAN) 4 mg INTRAVENOUS q 6 H PRN - nicotine -- REMOVE patch OTHER DAILY And - nicotine - verify patch OTHER q 8 H - fenofibrate 200 mg cap(s) (LOFIBRA) 200 mg ORAL DAILY WITH BREAKFAST - oxybutynin XL 5 mg tab(s) (DITROPAN XL) 5 mg ORAL DAILY - heparin 5,000 Units injection 5,000 Units SUBCUTANEOUS q 12 H - cefTRIAXone 1 g in D5W 100 mL MB+ (ROCEPHIN) 1 g INTRAVENOUS q 24 H MNT Billing Type: Re-assess/15 min 1 unit SIGNATURE: Yue Marquez RD, LD PATIENT NAME: Jorge Covington DATE: January 27, 2019 TIME: 5:01 PM [facility] PROGRESSon 01-27-2019 PROGRESS HNO ID: [id number] Author: Shirley Romo Service: ? Author Type: Physician Type: Progress Notes Filed: 01/27/2019 3:47 PM Note Text: INTERNAL MEDICINE PROGRESS NOTE SERVICE DATE: 01/27/2019 SERVICE TIME: 3:44 PM ADMITTING PHYSICIAN: Shirley Romo Subjective CHIEF COMPLAINT: weakness Current Facility-Administered Medications Medication Dose Route Frequency - pantoprazole DR 40 mg tab(s) (PROTONIX) 40 mg ORAL DAILY (6 AM) - doxycycline hyclate 100 mg cap(s) (VIBRAMYCIN) 100 mg ORAL q 12 H - docusate 100 mg oral liquid (DIOCTO, COLACE) 100 mg ORAL BID - acetaminophen 1,000 mg tab(s) (TYLENOL) 1,000 mg ORAL q 6 H PRN - polyethylene glycol 3350 17 g packet (MIRALAX, GLYCOLAX) 17 g ORAL DAILY - senna 8.6 mg tab(s) (SENOKOT) 8.6 mg ORAL BID PRN - baclofen 10 mg tab(s) (LIORESAL) 10 mg ORAL TID - nicotine 14 mg/24 hr 1 Patch (NICODERM) 1 Patch TRANSDERMAL DAILY - NaCl 0.9% 3-5 mL 3-5 mL INTRAVENOUS q 12 H - ipratropium-albuterol 3 mL nebulizer solution (DUONEB) 3 mL INHALATION q 4 H while awake - ondansetron orally disintegrating 4 mg tab(s) (ZOFRAN ODT) 4 mg ORAL q 6 H PRN Or - ondansetron (PF) 4 mg injection (ZOFRAN) 4 mg INTRAVENOUS q 6 H PRN - nicotine -- REMOVE patch OTHER DAILY And - nicotine - verify patch OTHER q 8 H - fenofibrate 200 mg cap(s) (LOFIBRA) 200 mg ORAL DAILY WITH BREAKFAST - oxybutynin XL 5 mg tab(s) (DITROPAN XL) 5 mg ORAL DAILY - heparin 5,000 Units injection 5,000 Units SUBCUTANEOUS q 12 H - cefTRIAXone 1 g in D5W 100 mL MB+ (ROCEPHIN) 1 g INTRAVENOUS q 24 H INTERVAL HISTORY OF PRESENT ILLNESS: Pt doing better today therapy is recommending SNF case mgmt working on that. He Is going to start po thyroid meds tomorrow. Repeat blood cultures Neg for 3 days Objective PHYSICAL EXAM: Patient Vitals for the past 24 hrs: BP Temp Temp src Pulse Resp SpO2 Height Weight 01/27/19 1204 104/58 37.1 ?C (98.8 ?F) Oral 67 20 99 % ? ? 01/27/19 1120 ? ? ? 68 18 ? ? ? 01/27/19 1110 ? ? ? 66 20 97 % ? ? 01/27/19 0909 143/82 36.8 ?C (98.2 ?F) Temporal 61 20 98 % ? ? 01/27/19 0720 ? ? ? 62 18 ? ? ? 01/27/19 0710 ? ? ? 61 18 97 % ? ? 01/27/19 0600 ? 99 % ? ? 01/27/19 0347 ? ? ? 60 17 100 % ? ? 01/27/19 0300 124/61 36.6 ?C (97.9 ?F) Temporal (!) 58 18 100 % ? ? 01/27/19 0005 ? ? ? (!) 58 13 99 % ? ? 01/26/19 2300 122/65 37 ?C (98.6 ?F) Temporal 65 20 98 % ? ? 01/26/19 2100 115/60 37 ?C (98.6 ?F) ? 69 26 95 % 167.6 cm (5' 6 ) 108.8 kg (239 lb 13.8 oz) 01/26/191999 ? ? ? 68 14 97 % ? ? 01/26/191927 ? ? ? 64 20 97 % ? ? 01/26/19 191 ? 37 ?C (98.6 ?F) Oral ? 01/26/19 1900 102/57 ? ? 74 18 98 % ? ? 01/26/19 1800 ? ? ? 69 20 97 % ? ? 01/26/19 1700 119/60 ? ? 72 25 95 % ? ? 01/26/19 1618 ? ? ? 62 17 100 % ? ? 01/26/19 1610 ? ? ? 61 12 96 % ? ? 01/26/19 1600 113/58 37.1 ?C (98.7 ?F) Axillary 67 19 96 % ? ? Body mass index is 38.71 kg/m?. GENERAL: Alert, no distress, cooperative SKIN: Skin color, texture, turgor normal. No rashes or lesions. OROPHARYNX: Lips, mucosa, and tongue are normal.Teeth and gums, normal. Oropharynx normal. NECK: No jugulovenous distention, No carotid bruits, Carotid pulse normal contour, Supple LUNGS: Lungs clear to auscultation. Good diaphragmatic excursion. CARDIAC: Normal S1 and S2; no rubs, murmurs, or gallops ABDOMEN: Abdomen soft, non-tender, BS normal, No masses or organomegaly EXTREMITIES: Extremities normal, no deformities, edema, clubbing or skin discoloration. Good capillary refill., No ulcers NEURO: Alert, oriented X 3, Gait normal. Non-focal. Reflexes normal and symmetric. Sensation grossly intact., Cranial nerves II-XII intact PULSES: 2+ radial, 2+ carotid DATA: Diagnostic tests reviewed for today's visit: Most recent labs and imaging results. 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 Plan Can dc to SNF whenever approval obtained. Medication and Non-Pharmacologic VTE Prophylaxis/Anticoagula nts Anticoagulant AND Antiplatelet Medications (From admission, onward) Start Dose Route Frequency Ordered Stop 01/22/19 223 heparin 5,000 Units injection (Medical Risk Categories) 5,000 Units SUBCUTANEOUS EVERY 12 HOURS 01/22/192228 -- 01/22/192229 pneumatic compression stockings (fl,oh) 01/22/191814 vte non-pharmacologic prophylaxis - none indicated (fl,oh) 01/22/191814 activity - mobilize patient (sc,va) VTE Prophylaxis: VTE prophylaxis appropriate SIGNATURE: Shirley Romo DO PATIENT NAME: Jorge Covington DATE: January 27, 2019 TIME: 3:44 PM PAGER/CONTACT #: [phone] [facility] ALLIED HEALTHon 01-26-2019 ALLIED HEALTH HNO ID: [id number] Author: DAVID Sykes (Ct) Service: ? Author Type: Clinical Multimedia Specialist Type: Allied Health Filed: 01/26/2019 6:13 AM Note Text: Radiology Service Progress Note PATIENT NAME: Jorge Covington DATE OF SERVICE: January 26, 2019 TIME: 6:13 AM PATIENT IDENTITY VERIFICATION COMPLETED USING TWO (2) METHODS: Name and Date of confirmed by patient verbally. PATIENT GENDER DATA: Male PATIENT RELEVANT IMPLANT DATA REVIEWED: Not Applicable RADIOLOGY DEPARTMENT: General X-ray: Exam(s) Completed: Chest X-Ray PERIPHERAL IV DATA: Not applicable SIGNED BY: DAVID Sykes January 26, 2019 6:13 AM [facility] Basic Metabolic Panlon 01-26 Anion gap [Moles/Vol] 11 mmol/L Normal 9-18 [facility] Comment on above: Performed By: #### T SH #### [facility] Laboratory [address] [place] [address] Calcium [Mass/Vol] 9.4 mg/dL Normal 8.5-10.2 [facility] Comment on above: Performed By: #### T SH #### [facility] [address] [place] [address] Chloride [Moles/Vol] 109 mmol/L High 97-105 [facility] Comment on above: Performed By: #### T SH #### [facility] [address] [place] [phone] CO2 [Moles/Vol] 27 mmol/L Normal 22-30 [facility] Comment on above: Performed By: #### T SH #### [facility] [address] [place] [phone] Creatinine [Mass/Vol] 0.70 mg/dL Low 0.73-1.22 [facility] Comment on above: Performed By: #### T SH #### [facility] [address] [place] [phone] eGFR- Amer. >60 Normal [facility] Comment on above: Performed By: #### T SH #### [facility] [address] [place] [phone] GFR/1.73 sq M predicted among non-blacks MDRD (S/P/Bld) [Vol rate/Area] mL/min/{1.73_m2} Normal [facility] Comment on above: Result Comment: eGFR (Estimated GFR) Units of measure: mL/min/1.73 meters squared eGFR is derived from the reexpressed MDRD Study equation using the following parameters: serum creatinine, age, gender and race. The creatinine assay has been calibrated to be traceable to IDMS. An eGFR <60 mL/min/1.73m2 for >3 months is consistent with chronic kidney disease. Refer to KDOQI guidelines for clinical interpretation. In patients with unstable renal function, e.g. those with acute kidney injury, the eGFR may not accurately reflect actual GFR. Performed By: #### T SH #### [facility] [address] [place] [phone] Glucose [Mass/Vol] 128 mg/dL High 74-99 [facility] Comment on above: Result Comment: The [place] [employer] (ADA) provides guidance for cutoff values for fasting glucose and random glucose. The ADA defines fasting as no caloric intake for at least 8 hours. Fasting plasma glucose results between 100 to 125 mg/dL indicate increased risk for diabetes (prediabetes). Fasting plasma glucose results greater than or equal to 126 mg/dL meet the criteria for diagnosis of diabetes. In the absence of unequivocal hyperglycemia, results should be confirmed by repeat testing. In a patient with classic symptoms of hyperglycemia or hyperglycemic crisis, random plasma glucose results greater than or equal to 200 mg/dL meet the criteria for diagnosis of diabetes. Reference: Standards of Medical Care in Diabetes 2016, [place] [employer]. Diabetes Care. 2016.39(Suppl 1). Performed By: #### T SH #### [facility] [address] [facility] [phone] Potassium [Moles/Vol] 3.9 mmol/L Normal 3.7-5.1 [facility] Comment on above: Performed By: #### T SH #### [facility] [address] [place] [phone] Sodium [Moles/Vol] 147 mmol/L High 136-144 [facility] Comment on above: Performed By: #### T SH #### [facility] [address] [facility] [phone] Urea nitrogen [Mass/Vol] 9 mg/dL Normal 9-24 [facility] Comment on above: Performed By: #### T SH #### [facility] [address] [facility] [phone] CASE MANAGEMon 01-26-2019 CASE MANAGEM HNO ID: [id number] Author: Kari (Rn) VIKTOR Toscano Service: ? Author Type: Registered Nurse Type: Care Mgt Progress Note Filed: 01/26/2019 12:10 PM Note Text: CARE MANAGEMENT PROGRESS NOTE SERVICE DATE: 01/26/2019 SERVICE TIME: 11:21 AM LOS: 4 days VIKTOR PAVON met with patient at bedside to discuss discharge planning. Patient informed that Physical Therapy is recommending Retirement Facility for discharge. VIKTOR PAVON discussed freedom of choice with patient. Patient sates he is agreeable to detention facility at discharge. VIKTOR PAVON provided and offered to read patient the [facility] Provider list for SNF choices patient states he does not have his glasses to read himself. Patient declines offer and requests that VIKTOR PAVON call his spouse Abraham for detention facility choices. Patient provided his spouses contact information [phone]. VIKTOR PAVON called and spoke to Abraham and read her the [facility] Provider List for SNF. FREEDOM OF CHOICE GIVEN: Yes [place] of choice explained to patient and patients spouse Abraham. Financial Disclosure Provided The patient and/or family has been given the Provider List: Yes Provider List: Retirement Facility Preference: Retirement Facility: [facility] - [phone] 2. [facility] - [phone] 3. [facility] - [phone] Referrals sent in [employer]scripts to SNF choices. SIGNATURE: Kari Toscano RN PATIENT NAME: Jorge Covington DATE: January 26, 2019 TIME: 11:21 AM PAGER/CONTACT #: [phone] Normal [facility] CBCon 01-26-2019 Erythrocyte distribution width (RBC) [Ratio] 18.0 % High 11.5-15.0 [facility] Comment on above: Performed By: #### T SH #### [facility] [address] [place], [place] [phone] Hematocrit (Bld) [Volume fraction] 37.7 % Low 39.0-51.0 [facility] Comment on above: Performed By: #### T SH #### [facility] [address] [place], [place] [phone] Hemoglobin (Bld) [Mass/Vol] 12.0 g/dL Low 13.0-17.0 [facility] Comment on above: Performed By: #### T SH #### [facility] [address] [place], [place] [phone] MCH (RBC) [Entitic mass] 29.6 pG Normal 26.0-34.0 [facility] Comment on above: Performed By: #### T SH #### [facility] [address] [place], [place] [phone] MCHC (RBC) [Mass/Vol] 31.8 g/dL Normal 30.5-36.0 [facility] Comment on above: Performed By: #### T SH #### [facility] [address] [place], [place] [phone] MCV (RBC) [Entitic vol] 93.1 fL Normal 80.0-100.0 [facility] Comment on above: Performed By: #### T SH #### [facility] [address] [place], [place] [phone] Platelet mean volume (Bld) [Entitic vol] 9.9 fL Normal 9.0-12.7 [facility] Comment on above: Performed By: #### T SH #### [facility] [address] [facility] [phone] Platelets (Bld) [#/Vol] 334 10*3/uL Normal 150-400 [facility] Comment on above: Performed By: #### T SH #### [facility] [address] [facility] [phone] RBC (Bld) [#/Vol] 4.05 10*6/uL Low 4.20-6.00 [facility] Comment on above: Performed By: #### T SH #### [facility] [address] [facility] [phone] WBC (Bld) [#/Vol] 7.97 10*3/uL Normal 3.70-11.00 [facility] Comment on above: Performed By: #### T SH #### [facility] [address] [facility] [phone] Free T3on 01-26-2019 Free T3 [Mass/Vol] 1.3 pg/mL Low 2.3-4.1 [facility] Comment on above: Performed By: #### F REET3 ####[facility] [place], [place] [phone] Free T3 [Mass/Vol] Duplicate request Normal 2.3-4.1 [facility] Comment on above: Performed By: #### T SH #### [facility] [address] [facility] [phone] Free T4on 01-26-2019 Free T4 [Mass/Vol] Duplicate request Normal 0.9-1.7 [facility] Comment on above: Performed By: #### C BC, BMP, MG1, PHOS, FREET3, FT4 ####[facility] [address] [place], [place] [phone] Magnesiumon 01-26-2019 Magnesium [Mass/Vol] 2.1 mg/dL Normal 1.7-2.3 [facility] Comment on above: Performed By: #### T SH #### [facility] Laboratory [address] [facility] [phone] NURSING PROGon 01-26-2019 NURSING PROG HNO ID: [id number] Author: Lesly Borrego RN Service: Nursing Author Type: Registered Nurse Type: Nursing Progress Note Filed: 01/26/2019 10:13 PM Note Text: Nursing Progress Note Patient Name: Jorge Covington Patient [place] [facility] [id number] Transfer Note: Patient transferred into room/unit 264 in stable condition. Actions taken: No futher actions taken at this time. Will continue to monitor and check with patient. This note was completed by: Lesly Borrego RN [facility] NURSING PROG HNO ID: [id number] Author: Goran De La RosaRnDemi Thomas RN Service: ? Author Type: Registered Nurse Type: Nursing Progress Note Filed: 01/26/2019 9:31 PM Note Text: Nursing Progress Note Patient Name: Jorge Covington Patient Location: [facility]-0001/[id number] Daily Note 2124- Transferred via bed out of icu 1 to RM#264 via bed on 2L. All belongings sent with patient. VSS. Safety maintained. This note was completed by: Goran Thomas Rn [facility] PLAN OF CAREon 01-26-2019 PLAN OF CARE HNO ID: [id number] Author: Rossi Vásquez) Marleny Service: Endocrinology Author Type: Physician Type: Plan of Care Filed: 01/26/2019 11:11 AM Note Text: Plan of Care: -- monitoring thyroid labs daily with you -- no change today -- continue IV levothyroxine 150 mcg -- Free t4 daily -- TSH Thursday -- Will return Thursday to bedside and make comments when TSH returns Rossi Farmer MD [facility] PROGRESSon 01-26-2019 PROGRESS HNO ID: [id number] Author: Merrick Kuhn Service: Critical Care Author Type: Physician Type: Progress Notes Filed: 01/26/2019 2:16 PM Note Text: SERVICE DATE: 01/26/2019 SERVICE TIME: 11:16 AM INTENSIVE CARE UNIT PROGRESS NOTE BRIEF HPI: 63 y.o. M with PMH of COPD, Hypothyroidism, presenting with progressive generalized fatigue, lower extremity weakness, slurred speech and a 30 lb weight gain since July 2018. Patient was noted to be in hypoxemic and hypercapnic respiratory failure in the ER and started on BIPAP. Patient was also noted to be bradycardic and hypotensive. He was subsequently intubated after he failed BiPAP. TSH level at admission was elevated at 92.24. Blood cultures grew klebsiella - On Ceftriaxone Subjective INTERVAL EVENTS: Improving. Extubated yesterday, completed BiPAPx5 hours. Tolerating clear liquids. Objective MEDICATIONS: Current medications and allergies reviewed. Recommended/planned medication changes discussed in detail in the A/P section below. Please refer to [employer] for list of inpatient medications. VITAL SIGNS: BP 115/67 Pulse 75 Temp 36.6 ?C (97.9 ?F) (Axillary) Resp (!) 33 Ht 167.6 cm (5' 6 ) Wt 106.3 kg (234 lb 5.6 oz) SpO2 92% BMI 37.82 kg/m? Current Weight: Weight: 106.3 kg (234 lb 5.6 oz) Admission Weight: Weight: 107 kg (236 lb) PHYSICAL EXAM: Neuro:?oriented, Follows commands Pulmonary:???Clear; Reduced?bilateral bases??? Cardiovascular:?Regular rhythm? Abdomen:?Soft and Nontender Extremities:?Edema- Yes??Peripheral pulses- Present all extremities?? ? DATA: Diagnostic tests reviewed for today's visit: Most recent labs and imaging results. ICU Checklist Last Documented/Reviewed time: 01/26/2019 10:09 AM ------ - ICU Delirium Status: CAM Negative - no action required Restraint Status: None ICU Mobility-Pt Has Been Out of Bed: Yes, PT Consult - Specify Line Status: None Ventilator: None Benson Status: Present, will discontinue today GI/Stress Ulcer Prophylaxis: PPI Nutrition is at Goal: NPO, Advancing to goal VTE Prophylaxis: Chemoprophylaxis: Heparin SQ Mechanical Prophylaxis: Thigh high SCD Pressure Injury Status: None ICU Plan Reviewed with RN: Yes ICU Family Update in Last 24 Hours: Patient updated, Family updated ICU Disposition- Is Patient Clinically Ready to Transfer to [facility] or SDU?: Yes, transfer to SDU or [facility] today Discharge Planning: SNF ASSESSMENT AND PLAN Active Hospital Problems as of 01/26/2019 Noted - Resolved Neurology Myxedema coma ([facility]) 01/23/2019 - Present Current Assessment AND Plan Assessment: H/O Hypothyroidism On Po Levothyroxine stopped taking as ran out of prescriptons PLAN: Endocrinology on board IV Levothyroxine Daily thyroid studies TSH on Thursday Pulmonary COPD (chronic obstructive pulmonary disease) ([facility]) 06/08/2018 - Present Acute respiratory failure ([facility]) 01/22/2019 - Present Current Assessment AND Plan Assessment: Intubated 01/22 overnight ---> Extubated 01/25 PLAN: Continue scheduled nebs Aggressive pulm toilet OOB ISS Infectious Disease Septicemia ([facility]) 01/23/2019 - Present Current Assessment AND Plan Assessment: Growing klebsiella in blood on Ceftriaxone, UA dirty, Urine Culture negative, past h/o UTI with Proteus which was sensitive to Ceftriaxone PLAN: Continue Ceftriaxone X 7 days total Medication and Non-Pharmacologic VTE Prophylaxis/Anticoagula nts Anticoagulant AND Antiplatelet Medications (From admission, onward) Start Dose Route Frequency Ordered Stop 01/22/192229 heparin 5,000 Units injection (Medical Risk Categories) 5,000 Units SUBCUTANEOUS EVERY 12 HOURS 01/22/192228 -- 01/22/192229 pneumatic compression stockings (sc,va) 01/22/191814 vte non-pharmacologic prophylaxis - none indicated (sc,oh) 10/26/19 1815 activity - mobilize patient (sc,oh) VTE Prophylaxis: VTE prophylaxis appropriate Plan of care discussed with: Provider, RN, Patient SIGNATURE: Camila Rizvi MD PATIENT NAME: Jorge Covington DATE: January 26, 2019 TIME: 11:16 AM PAGER/CONTACT #: [phone] ICU STAFF PHYSICIAN NOTE OF PERSONAL INVOLVEMENT IN CARE ? Seriously?ill 63?year old male admitted to ICU?with acute on chronic respiratory failure and myxedema coma. Extubated on 01/25/19. ? Continue Noninvasive ventilation qhs Continue BPH/IS/OOB/broncohodila tor-anticholinergic therapy Supplemental oxygen be titrated to a target of 88 to 92 percent pulse oxygen saturation Continue steroids x 5 days Continue abx x 7 days per c/s results Continue IV levothyroxine per Physical therapy Electrolyte replacement to keep K>4 and Mg>2 to decrease risk of a Fib Maintain day/night cycle, avoid BDZ, anticholinergics, anti-histamines SSI SCDs, sc heparin Continue respiratory/hemodynamic monitoring D/w Dr.Esterle Desai for transfer to [facility] I have reviewed and verified the recent history and physical examination obtained and documented by fellow and I personally participated in the hodges components. I have discussed the case and management of the patient's care, exclusive of separately billed procedures which fulfilled the standards for LEVEL 3. SIGNATURE: Merrick Kuhn MD DATE: 01/26/2019 TIME: 2:14 PM [facility] PROGRESS HNO ID: [id number] Author: Shirley Romo Service: ? Author Type: Physician Type: Progress Notes Filed: 01/26/2019 10:11 AM Note Text: INTERNAL MEDICINE PROGRESS NOTE SERVICE DATE: 01/26/2019 SERVICE TIME: 10:09 AM ADMITTING PHYSICIAN: Shirley Romo Subjective CHIEF COMPLAINT: No complaints today Current Facility-Administered Medications Medication Dose Route Frequency - doxycycline hyclate 100 mg cap(s) (VIBRAMYCIN) 100 mg ORAL q 12 H - predniSONE 40 mg tab(s) (DELTASONE) 40 mg ORAL/FEEDING TUBE DAILY - lactated ringers infusion 5-30 mL/hr INTRAVENOUS CONTINUOUS - levothyroxine 150 mcg in NaCl (PF) 0.9% 3 mL iv syringe 150 mcg INTRAVENOUS DAILY (6 AM) - docusate 100 mg oral liquid (DIOCTO, COLACE) 100 mg ORAL BID - acetaminophen 1,000 mg tab(s) (TYLENOL) 1,000 mg ORAL q 6 H PRN - polyethylene glycol 3350 17 g packet (MIRALAX, GLYCOLAX) 17 g ORAL DAILY - senna 8.6 mg tab(s) (SENOKOT) 8.6 mg ORAL BID PRN - baclofen 10 mg tab(s) (LIORESAL) 10 mg ORAL TID - nicotine 14 mg/24 hr 1 Patch (NICODERM) 1 Patch TRANSDERMAL DAILY - NaCl 0.9% 3-5 mL 3-5 mL INTRAVENOUS q 12 H - ipratropium-albuterol 3 mL nebulizer solution (DUONEB) 3 mL INHALATION q 4 H while awake - ondansetron orally disintegrating 4 mg tab(s) (ZOFRAN ODT) 4 mg ORAL q 6 H PRN Or - ondansetron (PF) 4 mg injection (ZOFRAN) 4 mg INTRAVENOUS q 6 H PRN - nicotine -- REMOVE patch OTHER DAILY And - nicotine - verify patch OTHER q 8 H - fenofibrate 200 mg cap(s) (LOFIBRA) 200 mg ORAL DAILY WITH BREAKFAST - oxybutynin XL 5 mg tab(s) (DITROPAN XL) 5 mg ORAL DAILY - heparin 5,000 Units injection 5,000 Units SUBCUTANEOUS q 12 H - cefTRIAXone 1 g in D5W 100 mL MB+ (ROCEPHIN) 1 g INTRAVENOUS q 24 H INTERVAL HISTORY OF PRESENT ILLNESS: Pt doing much better overall his thyroid labs are starting to normalize and he is to continue the ivT4 for a few more days, Endo getting a tsh on Thursday. He will need to be slowly tapered off the steroids as well. He denies any complaints today. Spoke withintensivist will move him out to tele today Objective PHYSICAL EXAM: Patient Vitals for the past 24 hrs: BP Temp Temp src Pulse Resp SpO2 01/26/19 0934 115/67 ? ? 75 (!) 33 92 % 01/26/19 0900 115/67 ? ? 63 20 95 % 01/26/19 0857 ? ? ? (!) 59 20 ? 01/26/19 0846 ? ? ? (!) 57 13 99 % 01/26/19 0800 107/60 36.6 ?C (97.9 ?F) Axillary (!) 56 12 98 % 01/26/19 0700 107/57 ? ? (!) 57 17 98 % 01/26/19 0600 107/61 ? ? (!) 58 14 97 % 01/26/19 0500 127/75 ? ? (!) 58 14 98 % 01/26/19 0410 ? 97 % 01/26/19 0400 118/68 ? ? (!) 56 13 99 % 01/26/19 0300 119/73 ? ? (!) 57 14 97 % 01/26/19 0200 154/72 ? ? 62 23 95 % 01/26/19 0100 131/74 ? ? 60 13 99 % 01/26/19 0000 117/82 ? ? 70 (!) 35 98 % 01/25/19 2323 ? 36.3 ?C (97.4 ?F) Temporal ? ? ? 01/25/19 2309 ? ? ? 62 13 97 % 01/25/19 2300 ? ? ? 63 13 98 % 01/25/19 2200 112/64 ? ? 62 16 97 % 01/25/19 2100 112/69 ? ? 67 14 96 % 01/25/19 2041 ? ? ? 62 20 ? 01/25/192028 ? ? ? (!) 58 16 98 % 01/25/19 2000 104/64 ? ? 60 13 97 % 01/25/19 1900 103/65 ? ? 64 15 96 % 01/25/19 1800 126/62 ? ? 73 16 97 % 01/25/19 1700 ? ? ? 74 28 97 % 01/25/19 1600 120/70 ? ? 68 16 97 % 01/25/19 1556 ? ? ? 63 18 100 % 01/25/19 1545 ? ? ? 62 16 97 % 01/25/19 1500 129/78 ? ? 65 16 99 % 01/25/19 1400 125/62 ? ? 81 18 96 % 01/25/19 1300 116/65 ? ? (!) 58 16 97 % 01/25/19 1230 ? ? ? (!) 55 17 99 % 01/25/19 1222 ? ? ? (!) 58 16 98 % 01/25/19 1200 ? ? ? (!) 56 16 98 % 01/25/19 1100 131/60 36.8 ?C (98.2 ?F) Temporal 62 18 99 % 01/25/19 1039 ? ? ? 71 27 97 % Body mass index is 37.82 kg/m?. GENERAL: Alert, no distress, cooperative SKIN: Skin color, texture, turgor normal. No rashes or lesions. OROPHARYNX: Lips, mucosa, and tongue are normal.Teeth and gums, normal. Oropharynx normal. NECK: No jugulovenous distention, No carotid bruits, Carotid pulse normal contour, Supple LUNGS: Lungs clear to auscultation. Good diaphragmatic excursion. CARDIAC: Normal S1 and S2; no rubs, murmurs, or gallops ABDOMEN: Abdomen soft, non-tender, BS normal, No masses or organomegaly EXTREMITIES: Extremities normal, no deformities, edema, clubbing or skin discoloration. Good capillary refill., No ulcers NEURO: Alert, oriented X 3, Gait normal. Non-focal. Reflexes normal and symmetric. Sensation grossly intact., Cranial nerves II-XII intact PULSES: 2+ radial, 2+ carotid DATA: Diagnostic tests reviewed for today's visit: Most recent labs and imaging results. Assessment/Plan Acute respiratory failure extubated Copd Decompensated hypothryoidism with myxedema?following daily T3 T4 on po Synthroid now hypercapnea Suspect adolfo/ohs uti?proteus sensitive to rocephin GNB septicemia klebsiella sensitive to rocephin Distended bowel loops due to thyroid likely ? Plan Cont current poc Transfer to [facility] Medication and Non-Pharmacologic VTE Prophylaxis/Anticoagula nts Anticoagulant AND Antiplatelet Medications (From admission, onward) Start Dose Route Frequency Ordered Stop 01/22/192229 heparin 5,000 Units injection (Medical Risk Categories) 5,000 Units SUBCUTANEOUS EVERY 12 HOURS 01/22/192228 -- 01/22/192229 pneumatic compression stockings (sc,va) 01/22/191814 vte non-pharmacologic prophylaxis - none indicated (sc,va) 01/22/191814 activity - mobilize patient (sc,va) VTE Prophylaxis: VTE prophylaxis appropriate SIGNATURE: Shirley Romo DO PATIENT NAME: Jorge Covington DATE: January 26, 2019 TIME: 10:09 AM PAGER/CONTACT [phone] [facility] Phosphate [Mass/Vol] 2.9 mg/dL Normal 2.7-4.8 [facility] Comment on above: Performed By: #### T #### [facility] Laboratory [address] [facility] [phone] THERAPY NTon 01-26-2019 THERAPY NT HNO ID: [id number] Author: Drea De La RosaOt/LDemi Burciaga Service: Occupational Therapy Author Type: Occupational Therapist Type: Therapy (PT/OT/Speech/Resp) Filed: 01/28/2019 1:50 PM Note Text: Occupational Therapy Evaluation SERVICE DATE: 01/26/2019 SERVICE TIME: 1350 to 1425 ROOM: [place] [address] Recommended Discharge Disposition: Subacute/SNF Recommended Discharge Disposition Comments: Pt is presenting well below baseline with decreased strength and activity tolerance. Requires continued skilled OT to maximize indepedence and safety in ADLs, IADLs, and functional mobility Justification For Post Acute Needs: Living the community premorbidly;Medically complex;Willing to participate;May not tolerate higher intensity programing;Anticipate that patient will require daily (5x/wk) skilled therapy in a post-acute facility setting at the time of acute hospital discharge Anticipated Discharge Needs: (Recommending SNF ) OT Recommendations to Nursing: Edge of bed ADL?s;With assist of 2 people OT 6 Clicks Score: 14 Precautions/Activity Restrictions: Fall Risk;Lines/Tubes/Drains ;Other: See Comments Precaution/Activity Restriction Comments: standard, mobilize ASSESSMENT: Pt presents with impaired cognition, and decreased strength and activity tolerance which have resulted in a decline in safe ADL and functional mobility performance. Pt required overall max A for in-bed mobility. Overall ADLs required total A for LB and min A for UB (for thoroughness). During mobility, pt became fatigued but O2 remained >90%. Pt was unable to independently sit EOB for grooming activities and relied heavily on UE for balance. Pt requires skilled OT for increasing overall strength, activity tolerance, and balance to maximize independence and safety in ADLs and functional mobility. Patient Disposition at Start of Session: Supine in Bed;Call Gardner in Reach Patient Disposition at End of Session: Supine in Bed;Call Gardner in Reach Tolerance Limited By Fatigue Occupational Therapy Problem List: Cognitive Deficit;Safety Deficits;Impaired Self Care;Decreased Activity Tolerance;Functional Mobility Impairment Patient /Caregiver Goals: Go To Rehab Goals for Plan of Care: Grooming with: Set Up Upper Body Dressing with: Set Up Lower Body Dressing with: Contact Guard Assistance(with AE; seated EOB ) Chair Transfer with: Minimal Assistance(use of slide board ) Tolerate (minutes of functional activity): 30 Functional Activity with: Contact Guard Assistance Progress Toward Goals: Progressing as expected Rehab Potential: Fair PLAN: Treatment Frequency (times per week): 4 Current admission Treatment Interventions: Education;Self Care / Home Management;Energy Conservation Training;Functional Mobility Training;Balance Training Plan of Care developed with: Patient TREATMENT INTERVENTIONS: Therapy Diagnosis: Reduced mobility-other;Decrease d activities of daily living (ADL);Muscle Weakness (generalized);General symptoms and signs-other;Signs and Symptoms Involving Cognitive Functions and Awareness Interventions Provided: Evaluation;Therapeutic Activity (08017);Self Senior Living Management (65972) $ Evaluation-Moderate (94935) Billed Units: 1 unit Therapeutic Activity (12090) Treatment Minutes: 15 1 unit Skilled Intervention(s): Instructed patient in log roll technique Instructed patient in supine to sit pushing with upper extremities to sit up Instructed patient in sit to supine using safe, effective technique Instruction in stand to sit technique with lower extremities touching chair/bed and reaching back for surface Instruction in sit to and from stand technique with proper hand placement and body positioning at edge of bed/chair Promotion of sitting tolerance by incorporating self care activities while EOB sitting Self Senior Living Management (72279) Treatment Minutes: 10 1 unit Skilled Intervention(s): Education on role of OT Instruction on LB bathing with towelette - provided further cuing for thoroughness Instruction on hair brushing with consistent cuing on brushing full length of hair and covering all aspects of head Provided tactile cues and assistance to reach back of head. Instruction on body positioning for best EOB sitting to increase balance during grooming activities Instruction on using UE for stabilization while EOB sitting and performing grooming activities Education on recommendation and POC Total Timed Code Treatment Minutes: 25 SUBJECTIVE: Current Hospital Course: Chart reviewed; Pt is a 63yo male, see below Reason for Occupational Therapy Consult: Pt admitted with muxedema coma, septicemia, and acute respiratory failure; OT consulted for Critical Care Therapy Relevant Past Medical History: COPD,B LE weakness, hypothyroidism Patient Report: Pt agreeable to therapy, cleared for treatment by RN. Home Environment Patient Lives With: Spouse Assistance Available: 24 Hour(from spouse) Entry To Home: Stairs;With Rail;Ramp Number Of Stairs Into Home: 3(with B hand rails, can utilize simultaneously, uses ramp) Number Of Stairs To Bed/Bath: 0 Tub/Shower Type: walk in shower with chair, varies between sponge bathing and assist into showers with spouse Laundry: spouse completes Equipment Owned: Hospital Bed;Wheeled Walker;Shower Chair;Wheelchair;Other: See Comment(slide board, brace/AFO R LE) Prior Functional Level: Required Assistance;History of Falls Assistance Required With: Cleaning;Laundry;Meals; Medication Management;Safety;Self Care;Shopping;Transport ation;Wheelchair Mobility 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 What Year Is It Now?: Correct 2. What Month Is It Now?: Incorrect 3. What Time is it? (WIthin 1 hour): Correct 4. Count Aloud Backwards 20 to 1 (Errors): 2 5. Months of the Year in Reverse Order (Errors): 2 6. Memory Phrase (Errors) : 2 Short Blessed Final Score: 15 The Short Blessed Test indicates this patient has moderate cognitive impairment. This test is not a diagnostic tool and is used to measure level of cognitive impairment. Scorin-8; Normal to minimal impairment 9-19; Moderate impairment 20-28; Severe Impairment CURRENT FUNCTIONAL STATUS: Current Activities of Daily Living Assist Level Feeding Modified Independent(per clinical judgement ) Grooming Minimal Assistance(for thoroughness, while seated EOB ) Bathing Upper Body Minimal Assistance(for thoroughness, while seated; per clinical judgement ) Bathing Lower Body Maximal Assistance(using towelettes; unable to thoroughly wash thigh ) Dressing Upper Body Minimal Assistance(per clinical judgement; d/t fatigue ) Dressing Lower Body Total Assistance(per clinical judgement ) Toileting Total Assistance(per clinical judgement ) Functional Mobility Assist Level Rolling Maximal Assistance use of bed rails Supine to Sit Maximal Assistance x2 use of bed rails holding onto RN, consistent cuing on LE movements; HOB flat Sit to Supine Moderate Assistance assistance with LE Scooting Total Assistance use of draw pad Sit to Stand (unsafe to progress at this time ) Stand to Sit Bed to Chair Toilet/Commode Functional Mobility UE ROM and Strength - WFL Balance: Static Sitting;Dynamic Sitting Static Sitting Balance: Poor+ Able to maintain with minimal assistance from individual or chair Dynamic Sitting Balance: Poor Able to sit unsupported with Mod A and reach to ipsilatera/front - cant cross midline Activity Tolerance: Sitting Activity Sitting Activity: EOB grooming Sitting Activity Tolerance (in minutes): 8 Please see discipline specific clinical documentation flowsheet for complete details for this therapy evaluation/treatment. SIGNATURE: Drea Burciaga OT/L PATIENT NAME: Jorge Covington DATE: January 26, 2019 TIME: 2:53 PM [facility] THERAPY NT HNO ID: [id number] Author: Faith (Pt) Gerardo Service: Physical Therapy Author Type: Physical Therapist Type: Therapy (PT/OT/Speech/Resp) Filed: 01/26/2019 10:41 AM Note Text: Physical Therapy Evaluation SERVICE DATE: 01/26/2019 SERVICE TIME: 0857 to 0946 ROOM: [place] [address] Recommended Discharge Disposition: Subacute/SNF Recommended Discharge Disposition Comments: Pt currently below baseline, + fall risk; indicates need for continued PT post-acute in SNF setting to improve safety, strength, independence with all mobility prior to return home with spouse Justification For Post Acute Needs: Community discharge potential unknown;Functional status improvement unknown;Good family support;Medically complex;Willing to participate;May not tolerate higher intensity programing;Anticipate that patient will require daily (5x/wk) skilled therapy in a post-acute facility setting at the time of acute hospital discharge Anticipated Discharge Needs: (not applicable, SNF recommended) Recommended Discharge Equipment: No equipment needs anticipated PT Recommendations to Nursing: Utilize bed in chair position;Sit at edge of bed;Not appropriate for OOB activity at this time;Other: See Comment(assist x 2 for safety to EOB to dangle,do not leave unattend) Device: (turn/position schedule) PT 6 Clicks Score: 8 Precautions/Activity Restrictions: Fall Risk;Lines/Tubes/Drains ;Other: See Comments Precaution/Activity Restriction Comments: standard, mobilize ASSESSMENT : Patient presents with impaired balance, strength, activity tolerance, safety and independence with all functional mobility much below baseline. Patient is oriented x 3, appropriately follows simple commands however noted to be lacking full insight into current limitations. Patient relates very supportive spouse at home to assist with ADLs, IADLs and mobility however per judgement at this time needs exceed resources available. Patient tolerates supine therapeutic exercises as below, requires up to 2 assist for bed mobility due to fatigue/generalized weakness, tolerates EOB sitting x 10 minutes with OOB attempts/transfers ultimately deferred fur safety due to decreased activity tolerance. Patient initially on RA at approach (recently weaned from 2LO2 per AUTO RESEARCH ENGINEER), requires reapplication of 2LO2 during session to maintain pulse Ox >90%. Requires skilled PT during and post-acute stay for functional mobility training, reinforcing throughout energy conservation techniques, monitoring vitals/response PRN and progression of exercises to improve strength,balance, safety and independence with all mobility tasks. Patient presents with personal factors, comorbidities and results of the PT examination that require moderate complexity decision making. The patient requires skilled physical therapy to address multiple PT problems in order for the patient to return to a baseline functional level. Patient Disposition at Start of Session: Supine in Bed;Call Gardner in Reach;SCDs(on RA) Patient Disposition at End of Session: Supine in Bed;Call Gardner in Reach;SCDs(placed on 2LO2 during, to remain on 2LO2 post- per RN) Tolerance Limited By Fatigue;Other: See Comment(generalized weakness) Physical Therapy Problem List: Cognitive Deficit;Education Deficit;Safety Deficits;Impaired Self Care;Decreased Activity Tolerance;Decreased Range Of Motion;Decreased Strength;Functional Mobility Impairment;Balance Impaired;Sensory Deficit Patient /Caregiver Goals: Go Home(however appears open to SNF after session) Goals for Plan of Care: Able to perform HEP with: Verbal Cues Only(B LEs x 15-20 reps) Rolling with: Contact Guard Assistance Transfer supine to/from sit with: Contact Guard Assistance Transfer: Transfer bed to/from chair with slide board, even and uneven surfaces, no more than CGA to increase safety with OOB activity Goal: -Improve static and dynamic sitting to require no more than CGA to allow for safety with all EOB activities and slideboard transfers Goal: -all above to be achieved with pulse OX >90% Rehab Potential: Fair PLAN: Treatment Frequency (times per week): 4 Current admission Treatment Interventions: Education;Energy Conservation Training;Joint Mobility;Strengthening; Functional Mobility Training;Balance Training;Neuromuscular Re-education Plan of Care developed with: Patient TREATMENT INTERVENTIONS: Therapy Diagnosis: Reduced mobility-other Interventions Provided: Evaluation;Therapeutic Exercise (92890);Therapeutic Activity (74285);Neuromuscular Reeducation (33640) $ Evaluation-Moderate (85499) Billed Units: 1 unit Therapeutic Exercise (55132) Treatment Minutes: 6 Skilled Intervention(s): Instruction in therapeutic exercise Verbal and tactile cuing provided Facilitation of muscle control, optimal recruitment and alignment Completes 15 repetitions (unless otherwise indicated) of the following supine therapeutic exercises on B LE with assistance as indicated: ankle pumps ( moderate to max assist R LE, contact guard to min assistance L LE), heel slides (minimal assist L LE, min to mod assistance R LE), hip abduction with quad set (moderate assistance) Tendency to maintain R LE in externally rotated position Verbal, visual and tactile cues throughout for technique, deep breathing/relaxation and for patient to assist as able throughout. Requires assistance as indicated secondary to functional weakness. Appropriately follows cues throughout. *Rest breaks provided throughout secondary to fatigue/weakness. Education to patient on benefits/rationale for exercises Skilled judgment was provided in selection of appropriate interventions. Patient on RA during completion, overall pulse Ox >90% and up to 92% Therapeutic Activity (84386) Treatment Minutes: 8 1 unit Skilled Intervention(s): Instructed patient in log roll technique Instructed patient in supine to sit pushing with upper extremities to sit up Instructed patient in sit to supine using safe, effective technique See below for additional cues and assist Education: Pt educated in role of PT during acute stay and PT POC, importance of mobility to reduce risk of functional decline,rationale for discharge recommendation of SNF, indications for SNF and difference in role of services SNF vs home PT (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 and requesting preference for return to home with resumption of home care services, discussed at length concern for safety at home with home PT and indications for SNF initially), use of call light 100% of the time for assist, parameters for safe home going Prior to mobility/bed mobility supine in bed O2 sats vary between 85-89% on RA, placed on 2LO2 per MD and RN for mobility with bed mobility initiation held x 2 minutes to allow O2 to consistently remain >90%, pre-bed mobility 95-96%, post- 94% on 2LO2 *PRN verbal cues for proper deep breathing techniques Neuromuscular Re-Education (81255) Treatment Minutes: 10 1 unit Skilled Intervention(s): Seated balance activities: With cues for safety/technique Patient sits at EOB x 10 minutes to allow for accommodation, assessment of vitals and response, varies throughout between CGA up to mod assist with tendency Noted for lean to R, pt with efforts to correct deviation however demonstrates near LOB especially to R with efforts to correct Verbal, visual cues for upright and midline posture, proper hand placement on bed for optimal stability and support, proper deep breathing techniques to maintain pulse Ox within safe limits, on 2LO2 throughout, pulse OX overall maintained>90% ranges 92-96% Total Timed Code Treatment Minutes: 24 Total Treatment Time (minutes): 49 SUBJECTIVE: Current Hospital Course: Chart reviewed; Patient presented to ED with + acute respiratory failure requiring intubation, extubated 01/25 Reason for Physical Therapy Consult : critical care therapy Relevant Past Medical History: COPD,B LE weakness, hypothyroidism Patient Report: Patient resting supine in bed at approach, states I feel good, I feel like I could transfer right now , agreeable to PT evaluation/treatment, ok per RN for PT Home Environment Patient Lives With: Spouse Assistance Available: 24 Hour(from spouse) Entry To Home: Stairs;With Rail;Ramp Number Of Stairs Into Home: 3(with B hand rails, can utilize simultaneously, uses ramp) Number Of Stairs To Bed/Bath: 0 Tub/Shower Type: walk in shower with chair, varies between sponge bathing and assist into showers with spouse Laundry: spouse completes Equipment Owned: Hospital Bed;Wheeled Walker;Shower Chair;Wheelchair;Other: See Comment(slide board, brace/AFO R LE) Prior Functional Level: Required Assistance;History of Falls Assistance Required With: Cleaning;Laundry;Meals; Medication Management;Safety;Self Care;Shopping;Transport ation;Wheelchair Mobility 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, pt is supervision for slideboard transfers to/from w/c/commode/shower chair/hospital bed/car, spouse assists with all ADLs, spouse fully completes all IADLs and driving, reports x 2 falls out of w/c in the past 6 months, mod I for w/c management around home and up ramp into home(active with home PT services, + wears brace/AFO R LE) OBJECTIVE: CURRENT FUNCTIONAL STATUS: Current Functional Mobility Assist Level Additional Information Rolling Maximal Assistance(x 2 trials to R, x 1 trial to L, + use of bed rails) Bed in max inflate mode; verbal, visual and PRN tactile hand over hand cues for goal of task, sequencing, effective use of UEs/bed rails to assist Supine to Sit Moderate Assistance(for B LEs R>L and trunk,HOB 30 degrees, + use of bed rails) Cues as above with supine>sit, + time to complete, PT assist PRN with pad also Sit to Supine Maximal Assistance(x 2 for trunk and B LEs) Verbal cues for effective use of UEs/bed rail to guide trunk, goal of task Scooting Maximal Assistance(/total assist x 2 up in bed with pad) Verbal cues for safe progression, effective use of UEs Sit to Stand (unsafe for progression/not appropriate at this time) Stand to Sit Bed to Chair (unsafe for progression at this time) Toilet/Commode Gait Stairs Curb Step Car Transfer -Patient resting supine in bed post-treatment, call gardner and personal belongings in reach, RN notified of patient status, denies needs at this time. -Gait belt in place for safety with all functional mobility -Lines/Tubes/Drains: Intact and as follows: BP cuff, pulse Ox, telemetry, benson catheter, peripheral IV, 2LO2 via nasal cannula -Range of Motion: B knees lacking 15-20 degrees extension (baseline limited ROM), R foot drop (baseline), L LE AAROM WFL, R hip.knee flexion AAROM limited by 25% See OT evaluation for assessment of UE range of motion. -Strength: <3/5 B LEs, + R foot drop with trace R ankle See OT evaluation for assessment of UE strength. Balance: Static Sitting Static Sitting Balance: Poor(varies between poor to poor + at EOB) Unable to maintain balance - requires mod/max support individual or chair(varies between poor to poor + at EOB) Activity Tolerance: Sitting Activity Sitting Activity: statically at EOB Sitting Activity Tolerance (in minutes): 10 JH-HLM: 3: Sit at edge of bed Please see discipline specific clinical documentation flowsheet for complete details for this therapy evaluation/treatment. SIGNATURE: Faith Carrillo PT PATIENT NAME: Jorge Covington DATE: January 26, 2019 TIME: 10:28 AM [facility] XR CHEST 1V FRONTALon 2018 XR CHEST 1V FRONTAL * * *Final Report* * * DATE OF EXAM: Jan 26 2019 6:15AM MDX 5290 - XR CHEST 1V FRONTAL / PROCEDURE REASON: Acute respiratory illness * * * * Physician Interpretation * * * * EXAMINATION: CHEST RADIOGRAPH (PORTABLE SINGLE VIEW AP) Exam Date/Time: 01/26/2019 6:15 AM Clinical History: Acute respiratory illness MQ: [id number] Comparison: 01/25/2019 RESULT: Lines, tubes, and devices: Interval removal of ETT and enteric tube. Lungs and pleura: Persistent hazy opacities at the lung bases likely represent atelectasis. No pneumothorax or significant pleural effusion. Cardiomediastinal silhouette: Stable cardiomediastinal silhouette. Other: Prior cervical spine fusion. IMPRESSION: Mild bibasilar atelectasis. Partner Alliance Manager: PSCB Transcribe Date/Time: Jan 26 2019 6:34A Dictated by : RELL SIERRA MD This examination was interpreted and the report reviewed and electronically signed by: RELL SIERRA MD on Jan 26 2019 6:58AM EST [id number] [facility] ALLIED HEALTHon 01-25-2019 ALLIED HEALTH HNO ID: [id number] Author: Kannan Block (Rt) Service: Radiology Author Type: Multimedia Specialist Type: Allied Health Filed: 01/25/2019 6:24 AM Note Text: Radiology Service Progress Note PATIENT NAME: Jorge Covington DATE OF SERVICE: January 25, 2019 TIME: 6:24 AM PATIENT IDENTITY VERIFICATION COMPLETED USING TWO (2) METHODS: Name and Date of confirmed by identification band. PATIENT GENDER DATA: Male PATIENT RELEVANT IMPLANT DATA REVIEWED: Not Applicable RADIOLOGY DEPARTMENT: General X-ray: Exam(s) Completed: Chest X-Ray PERIPHERAL IV DATA: Not applicable SIGNED BY: RT Umair January 25, 2019 6:24 AM Normal [facility] Basic Metabolic Panlon 01-25 Anion gap [Moles/Vol] 8 mmol/L Low 9-18 [facility] Comment on above: Performed By: #### C BC, BMP, MG1, PHOS ####[facility] Dz[address]ogkc8878 [address]721[address]160 Calcium [Mass/Vol] 8.8 mg/dL Normal 8.5-10.2 [facility] Comment on above: Performed By: #### Beatriz BC, BMP, MG1, PHOS ####[facility] Ykthhphdhd9429 [address] Chloride [Moles/Vol] 104 mmol/L Normal 97-105 [facility] Comment on above: Performed By: #### Beatriz BC, BMP, MG1, PHOS ####[facility] [address] [place] [phone] CO2 [Moles/Vol] 25 mmol/L Normal 22-30 [facility] Comment on above: Performed By: #### Beatriz BC, BMP, MG1, PHOS ####[facility] [address] [place] [phone] Creatinine [Mass/Vol] 0.95 mg/dL Normal 0.73-1.22 [facility] Comment on above: Performed By: #### Beatriz BC, BMP, MG1, PHOS ####[facility] [address] [place] [phone] eGFR- Amer. >60 Normal [facility] Comment on above: Performed By: #### Beatriz BC, BMP, MG1, PHOS ####[facility] Ehczygmnox6212 [address] GFR/1.73 sq M predicted among non-blacks MDRD (S/P/Bld) [Vol rate/Area] mL/min/{1.73_m2} Normal [facility] Comment on above: Result Comment: eGFR (Estimated GFR) Units of measure: mL/min/1.73 meters squared eGFR is derived from the reexpressed MDRD Study equation using the following parameters: serum creatinine, age, gender and race. The creatinine assay has been calibrated to be traceable to IDMS. An eGFR <60 mL/min/1.73m2 for >3 months is consistent with chronic kidney disease. Refer to KDOQI guidelines for clinical interpretation. In patients with unstable renal function, e.g. those with acute kidney injury, the eGFR may not accurately reflect actual GFR. Performed By: #### C BC, BMP, MG1, PHOS ####[facility] [address] [place] [address] Glucose [Mass/Vol] 105 mg/dL High 74-99 [facility] Comment on above: Result Comment: The [place] [employer] (ADA) provides guidance for cutoff values for fasting glucose and random glucose. The ADA defines fasting as no caloric intake for at least 8 hours. Fasting plasma glucose results between 100 to 125 mg/dL indicate increased risk for diabetes (prediabetes). Fasting plasma glucose results greater than or equal to 126 mg/dL meet the criteria for diagnosis of diabetes. In the absence of unequivocal hyperglycemia, results should be confirmed by repeat testing. In a patient with classic symptoms of hyperglycemia or hyperglycemic crisis, random plasma glucose results greater than or equal to 200 mg/dL meet the criteria for diagnosis of diabetes. Reference: Standards of Medical Care in Diabetes 2016, [place] [employer]. Diabetes Care. 2016.39(Suppl 1). Performed By: #### C BC, BMP, MG1, PHOS ####[facility] [address] [place] [address] Potassium [Moles/Vol] 3.5 mmol/L Low 3.7-5.1 [facility] Comment on above: Performed By: #### C BC, BMP, MG1, PHOS ####[facility] [address] [place] [phone] Sodium [Moles/Vol] 137 mmol/L Normal 136-144 [facility] Comment on above: Performed By: #### C BC, BMP, MG1, PHOS ####[facility] [address] [place] [phone] Urea nitrogen [Mass/Vol] 12 mg/dL Normal 9-24 [facility] Comment on above: Performed By: #### C BC, BMP, MG1, PHOS ####[facility] [address]uipc[address] CASE MANAGEMon 01-25-2019 CASE MANAGEM HNO ID: [id number] Author: Kari (Rn) Everton RN Service: ? Author Type: Registered Nurse Type: Care Mgt Progress Note Filed: 01/25/2019 11:57 AM Note Text: MULTIDISCIPLINARY ROUNDS SERVICE DATE: 01/25/2019 ADMISSION DATE: 01/22/2019 SERVICE TIME: 10-11 AM ANTICIPATED D/C DATE: to be determined Problem List: ACTIVE PROBLEM LIST Collapsed Vertebra, Not Elsewhere Classified, Thoracic Region, Sequela of Fracture History of Cervical Fracture Intervertebral Disc Disorder With Radiculopathy of Lumbosacral Region Spinal Stenosis of Cervical Region Spinal Stenosis of Thoracic Region S/P Cervical Spinal Fusion Closed Fracture of Cervical Vertebra (Hcc) Closed Fracture of Thoracic Vertebra With Routine Healing Leg Weakness, Bilateral Chronic Bilateral Low Back Pain Without Sciatica 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) Myelomalacia (Hcc) Myelomalacia of Cervical Cord (Hcc) Copd (Chronic Obstructive Pulmonary Disease) (Hcc) Hypothyroidism Gerd (Gastroesophageal Reflux Disease) Allergy Overactive Bladder Uti (Urinary Tract Infection) Acute Respiratory Failure (Hcc) Myxedema Coma (Hcc) Septicemia (Hcc) Attendees Present at Rounds: Toy Assembler: Kari Toscano Pharmacy: [facility] Provider: Merrick Kuhn and Camila Rizvi Staff Nurse: Giovanni Mckeon Needs Discussed on Rounds: Plan of Care Anticipated Discharge Disposition: Home with Home Health Care vs Retirement Facility Home Health Care Referral: [facility] [phone] - Yes willing to accept for services. Last Vitals: BP 106/60 Pulse 71 Temp (Src) 98.2 (Temporal) Resp 27 Ht 5' 6 (1.68m) Wt 234 lb 5.6 oz (106.3kg) SpO2 97% BMI 37.84 kg/(m2). O2 Therapy: Nasal Cannula, Liters: 4, %FIO2: 35 ICU Rounding: Intubated and on Mechanical Ventilation PT/OT orders for evaluation to aid in discharge planning. Wean Trial Today Remain in ICU Nursing: Risk for Infection Intervention(s) Plan: Assess Vital Signs;Assess Signs/Symptom of Infection;Maintain Hand Hygiene;Monitor Labs and Cultures Risk for Infection Goals/Outcomes: Patient Without Signs/Symptoms of Infections Risk For Infection Goal Target Achievement Date: 01/26/19 Mobility Intervention(s) Plan: Notify LIP for Changes to Baseline Status (Unexplained Decrease in IFMS Score) Mobility Patient/Family Goals: Patient Attained Highest Level of Functional of Mobility;Patient Free of Complications such as Skin Breakdown, Contractures, Loss of Joint Mobility During Hospitalization Mobility Goal Target Achievement Date: 01/26/19 Respiratory Alteration Intervention(s) Plan: Assess and Monitor Respiratory Status;Mechanical Ventilation;Positioning for Maximum Lung Capacity Respiratory Alteration Goals/Outcomes: Patient Demonstrates Adequate Ventilation Respiratory Goal Target Achievement Date: 01/26/19 Safety Intervention(s) Plan: Ensure Safe Positioning Safety Goals/Outcomes: Maintain Patient Safety Safety Goal Target Achievement Date: 01/26/19 DOCUMENTED BY: Kari Toscano RN PATIENT NAME: Jorge Covington DATE: January 25, 2019 TIME: 11:52 AM CSN: [id number] Normal [facility] CBCon 01-25-2019 Erythrocyte distribution width (RBC) [Ratio] 18.4 % High 11.5-15.0 [facility] Comment on above: Performed By: #### N TBNP #### [facility] [address] [place] [address] Hematocrit (Bld) [Volume fraction] 35.2 % Low 39.0-51.0 [facility] Comment on above: Performed By: #### N TBNP #### [facility] [address] [place] [address] Hemoglobin (Bld) [Mass/Vol] 11.0 g/dL Low 13.0-17.0 [facility] Comment on above: Performed By: #### N TBNP #### [facility] [address] [place], [place] [phone] MCH (RBC) [Entitic mass] 29.3 pG Normal 26.0-34.0 [facility] Comment on above: Performed By: #### N TBNP #### [facility] [address] [place], [place] [phone] MCHC (RBC) [Mass/Vol] 31.3 g/dL Normal 30.5-36.0 [facility] Comment on above: Performed By: #### N TBNP #### [facility] [address] [place], [place] [phone] MCV (RBC) [Entitic vol] 93.6 fL Normal 80.0-100.0 [facility] Comment on above: Performed By: #### N TBNP #### [facility] [address] [facility] [phone] Platelet mean volume (Bld) [Entitic vol] 9.7 fL Normal 9.0-12.7 [facility] Comment on above: Performed By: #### N TBNP #### [facility] [address] [facility] [phone] Platelets (Bld) [#/Vol] 335 10*3/uL Normal 150-400 [facility] Comment on above: Performed By: #### N TBNP #### [facility] [address] [facility] [phone] RBC (Bld) [#/Vol] 3.76 10*6/uL Low 4.20-6.00 [facility] Comment on above: Performed By: #### N TBNP #### [facility] [address] [facility] [phone] WBC (Bld) [#/Vol] 7.63 10*3/uL Normal 3.70-11.00 [facility] Comment on above: Performed By: #### N TBNP #### [facility] [address] [facility] [phone] CONSULT PROGon 01-25-2019 CONSULT PROG HNO ID: [id number] Author: Rossi Vásquez) Marleny Service: Endocrinology Author Type: Physician Type: Consult Progress Note Filed: 01/25/2019 5:14 PM Note Text: Endocrinology Progress Note IMPRESSION: This patient is a 63 year old M with history of COPD, pre-existing hypothyroidism, Myelomalacia of the cervical cord who presents with confusion, lethargy, bradycardia, found to have a TSH of 92 and undetectable thyroid function tests and respiratory failure, 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 ? PLAN: Free t4 is improving as anticipated Continue IV lt4 150 mcg for at least another few days Check free t4 daily and total t3 TSH on Thursday Continue on tele Continue steroids for now - his cortisol was drawn at 3 am and is expectedly low. However, given critical status, abruptly discontinuing steroids is ill advised. He'll have to be tapered to physiological steroids and stim'd as an outpatient INTERVAL HISTORY: Patient is extubated and appears improved. He is able to talk, he answers questions and follows commands. States he feels better. at side. Current Facility-Administered Medications Medication Dose Route Frequency - acetaminophen 1,000 mg tab(s) (TYLENOL) 1,000 mg ORAL q 6 H PRN - polyethylene glycol 3350 17 g packet (MIRALAX, GLYCOLAX) 17 g ORAL DAILY - senna 8.6 mg tab(s) (SENOKOT) 8.6 mg ORAL BID PRN - baclofen 10 mg tab(s) (LIORESAL) 10 mg ORAL TID - nicotine 14 mg/24 hr 1 Patch (NICODERM) 1 Patch TRANSDERMAL DAILY - NaCl 0.9% 3-5 mL 3-5 mL INTRAVENOUS q 12 H - ipratropium-albuterol 3 mL nebulizer solution (DUONEB) 3 mL INHALATION q 4 H while awake - ondansetron orally disintegrating 4 mg tab(s) (ZOFRAN ODT) 4 mg ORAL q 6 H PRN Or - ondansetron (PF) 4 mg injection (ZOFRAN) 4 mg INTRAVENOUS q 6 H PRN - nicotine -- REMOVE patch OTHER DAILY And - nicotine - verify patch OTHER q 8 H - fenofibrate 200 mg cap(s) (LOFIBRA) 200 mg ORAL DAILY WITH BREAKFAST - oxybutynin XL 5 mg tab(s) (DITROPAN XL) 5 mg ORAL DAILY - heparin 5,000 Units injection 5,000 Units SUBCUTANEOUS q 12 H - cefTRIAXone 1 g in D5W 100 mL MB+ (ROCEPHIN) 1 g INTRAVENOUS q 24 H - levothyroxine 150 mcg in NaCl (PF) 0.9% 3 mL iv syringe 150 mcg INTRAVENOUS DAILY (6 AM) - docusate 100 mg oral liquid (DIOCTO, COLACE) 100 mg ORAL BID - lactated ringers infusion 5-30 mL/hr INTRAVENOUS CONTINUOUS - doxycycline 100 mg in D5W 250 mL Vial-Mate (VIBRAMYCIN) 100 mg INTRAVENOUS q 12 H - pantoprazole 40 mg oral liquid (PROTONIX) 40 mg ORAL DAILY (6 AM) - predniSONE 40 mg tab(s) (DELTASONE) 40 mg ORAL/FEEDING TUBE DAILY PHYSICAL EXAM:BP 125/62 Pulse 63 Temp 36.8 ?C (98.2 ?F) (Temporal) Resp 18 Ht 167.6 cm (5' 6 ) Wt 106.3 kg (234 lb 5.6 oz) SpO2 100% BMI 37.82 kg/m? General appearance: Well-appearing, overweight (BMI greater than 25) , alert, in no acute distress, well-hydrated, well nourished. Skin: Skin color, texture, turgor normal, no suspicious rashes or lesions Head: normocephalic Eyes: Anicteric sclera. +periorbital edema Ears: not examined Nose/Sinuses: Nares normal. No drainage Oropharynx: Lips, mucosa, and tongue normal, teeth and gums not examined. Neck: Supple Lungs: Breathing unlabored. Abdomen: deferred Extremities: +gross edema throughout Musculoskeletal: Spine range of motion not tested. Psych affect and behaviour normal Rossi Farmer MD [facility] Endocrinology and Metabolism [place] [facility] January 25, 2019 5:09 PM [facility] CONSULT PROG HNO ID: [id number] Author: Justin Davila Service: Pulmonary Disease Author Type: Physician Type: Consult Progress Note Filed: 01/28/2019 10:14 AM Note Text: Patient extubated with no ongoing pulmonary issues. Will sign off-discussed with ICU attending [facility] Free T3on 01-25-2019 Free T3 [Mass/Vol] 1.4 pg/mL Low 2.3-4.1 [facility] Comment on above: Performed By: #### T SH #### [facility] [address] [facility] [phone] Free T4on 01-25-2019 Free T4 [Mass/Vol] 0.6 ng/dL Low 0.9-1.7 [facility] Comment on above: Performed By: #### T SH #### [facility] [address] [facility] [phone] Magnesiumon 01-25-2019 Magnesium [Mass/Vol] 1.8 mg/dL Normal 1.7-2.3 [facility] Comment on above: Performed By: #### C BC, BMP, MG1, PHOS ####[facility] [place] [id number] [place], [place] [phone] NURSING PROGon 01-25-2019 NURSING PROG HNO ID: [id number] Author: Britta Mina (Rn) VIKTOR Dorado Service: Nursing Author Type: Registered Nurse Type: Nursing Progress Note Filed: 01/25/2019 7:01 AM Note Text: Nursing Progress: Topic: RESTRAINT NON-VIOLENT PATIENT NAME: Jorge Covington PATIENT LOCATION: [id number] The patient demonstrates Attempting to Remove Medical Devices Vital to Medical Stability, Inability to Retain Information Regarding Safety Directions as evidenced by the following behaviors pulling ET tube which pose an imminent danger to self or others. The following interventions were attempted but were not effective in protecting the patient's safety: Contraindicated - Imminent Safety Risk Next, a comprehensive assessment was performed and warranted placing the patient in Soft Bilateral Wrists, the least restrictive restraint needed to protect the patient's safety. Ongoing safety assessments and evaluation for earliest removal of restraints will be performed. DATE: January 25, 2019 TIME: 7:00 AM Britta Dorado RN Nursing Progress: Topic: RESTRAINT NON-VIOLENT PATIENT NAME: Jorge Covington PATIENT LOCATION: [id number]/[id number] The patient demonstrates Attempting to Remove Medical Devices Vital to Medical Stability, Inability to Retain Information Regarding Safety Directions as evidenced by the following behaviors pulling ET tube which pose an imminent danger to self or others. The following interventions were attempted but were not effective in protecting the patient's safety: Contraindicated - Imminent Safety Risk Next, a comprehensive assessment was performed and warranted placing the patient in Soft Bilateral Wrists, the least restrictive restraint needed to protect the patient's safety. Ongoing safety assessments and evaluation for earliest removal of restraints will be performed. DATE: January 25, 2019 TIME: 7:00 AM Britta Dorado RN [facility] NURSING [facility] ID: [id number] Author: Giovanni De La RosaRnDemi Mckeon RN Service: Nursing Author Type: Registered Nurse Type: Nursing Progress Note Filed: 01/25/2019 2:33 PM Note Text: Nursing Progress Note Patient Name: Jorge Covington Patient Location: [id number] Daily Note: 01/25/19 1030: Restraints DC'd post extubation. 1115: Call to , Dasia, regarding patient updates of overall status and extubation. This note was completed by: Giovanni Mckeon RN [facility] NURSING PROG HNO ID: [id number] Author: Giovanni Lowe) VIKTOR Mckeon Service: Nursing Author Type: Registered Nurse Type: Nursing Progress Note Filed: 01/25/2019 9:54 AM Note Text: Nursing Progress: Topic: RESTRAINT NON-VIOLENT PATIENT NAME: Jorge Covington PATIENT LOCATION: [place] [address] [address] The patient demonstrates Attempting to Remove Medical Devices Vital to Medical Stability as evidenced by the following behaviors --risk for self extubation-- which pose an imminent danger to self or others. The following interventions were attempted but were not effective in protecting the patient's safety: Contraindicated - Imminent Safety Risk Next, a comprehensive assessment was performed and warranted placing the patient in Soft Bilateral Wrists, the least restrictive restraint needed to protect the patient's safety. Ongoing safety assessments and evaluation for earliest removal of restraints will be performed. DATE: January 25, 2019 TIME: 9:53 AM Giovanni Mckeon RN [facility] PROGRESSon 01-25-2019 PROGRESS HNO ID: [id number] Author: Shirley Romo Service: ? Author Type: Physician Type: Progress Notes Filed: 01/25/2019 11:48 AM Note Text: INTERNAL MEDICINE PROGRESS NOTE SERVICE DATE: 01/25/2019 SERVICE TIME: 11:46 AM ADMITTING PHYSICIAN: Shirley Romo Subjective CHIEF COMPLAINT: sob Current Facility-Administered Medications Medication Dose Route Frequency - predniSONE 40 mg tab(s) (DELTASONE) 40 mg ORAL/FEEDING TUBE DAILY - lactated ringers infusion 50 mL/hr INTRAVENOUS CONTINUOUS - doxycycline 100 mg in D5W 250 mL Vial-Mate (VIBRAMYCIN) 100 mg INTRAVENOUS q 12 H - pantoprazole 40 mg oral liquid (PROTONIX) 40 mg ORAL DAILY (6 AM) - levothyroxine 150 mcg in NaCl (PF) 0.9% 3 mL iv syringe 150 mcg INTRAVENOUS DAILY (6 AM) - docusate 100 mg oral liquid (DIOCTO, COLACE) 100 mg ORAL BID - acetaminophen 1,000 mg tab(s) (TYLENOL) 1,000 mg ORAL q 6 H PRN - polyethylene glycol 3350 17 g packet (MIRALAX, GLYCOLAX) 17 g ORAL DAILY - senna 8.6 mg tab(s) (SENOKOT) 8.6 mg ORAL BID PRN - baclofen 10 mg tab(s) (LIORESAL) 10 mg ORAL TID - nicotine 14 mg/24 hr 1 Patch (NICODERM) 1 Patch TRANSDERMAL DAILY - NaCl 0.9% 3-5 mL 3-5 mL INTRAVENOUS q 12 H - ipratropium-albuterol 3 mL nebulizer solution (DUONEB) 3 mL INHALATION q 4 H while awake - ondansetron orally disintegrating 4 mg tab(s) (ZOFRAN ODT) 4 mg ORAL q 6 H PRN Or - ondansetron (PF) 4 mg injection (ZOFRAN) 4 mg INTRAVENOUS q 6 H PRN - nicotine -- REMOVE patch OTHER DAILY And - nicotine - verify patch OTHER q 8 H - fenofibrate 200 mg cap(s) (LOFIBRA) 200 mg ORAL DAILY WITH BREAKFAST - oxybutynin XL 5 mg tab(s) (DITROPAN XL) 5 mg ORAL DAILY - heparin 5,000 Units injection 5,000 Units SUBCUTANEOUS q 12 H - cefTRIAXone 1 g in D5W 100 mL MB+ (ROCEPHIN) 1 g INTRAVENOUS q 24 H - propofol infusion (DIPRIVAN) 5-60 mcg/kg/min INTRAVENOUS CONTINUOUS INTERVAL HISTORY OF PRESENT ILLNESS: Pt doing well he was extubated this am and seems ok a little confused still. Denies pain. Labs improving. On po synthroid now. Objective PHYSICAL EXAM: Patient Vitals for the past 24 hrs: BP Temp Temp src Pulse Resp SpO2 01/25/19 1039 ? ? ? 71 27 97 % 01/25/19 0930 ? ? ? 74 16 99 % 01/25/19 0900 106/60 ? ? (!) 53 15 99 % 01/25/19 0800 100/59 36.6 ?C (97.8 ?F) Axillary (!) 55 15 97 % 01/25/19 0720 ? ? ? 60 16 99 % 01/25/19 0700 144/74 ? ? 62 17 90 % 01/25/19 0600 80/55 ? ? (!) 49 12 94 % 01/25/19 0500 116/81 ? ? 68 25 99 % 01/25/19 0435 ? ? ? (!) 55 13 100 % 01/25/19 0400 83/52 36.7 ?C (98.1 ?F) ? (!) 50 12 99 % 01/25/19 0330 ? ? ? (!) 50 12 98 % 01/25/19 0300 80/51 ? ? (!) 51 12 98 % 01/25/19 0200 153/82 ? ? 75 26 100 % 01/25/19 0130 92/55 ? ? (!) 51 21 100 % 01/25/19 0100 80/50 ? ? (!) 51 12 99 % 01/25/19 0030 ? ? ? (!) 52 12 99 % 01/25/19 0000 81/53 36.8 ?C (98.2 ?F) ? (!) 53 12 100 % 01/24/19 2334 ? ? ? (!) 52 16 99 % 01/24/19 2330 ? ? ? (!) 52 12 100 % 01/24/19 2300 86/54 ? ? (!) 52 14 99 % 01/24/19 2230 ? ? ? (!) 50 14 99 % 01/24/19 2200 84/50 ? ? (!) 51 15 99 % 01/24/19 2130 80/52 ? ? (!) 52 16 97 % 01/24/19 2000 82/52 ? ? 60 12 92 % 01/24/19 1916 ? ? ? 65 16 96 % 01/24/19 1900 104/63 ? ? (!) 59 11 98 % 01/24/19 1800 97/58 ? ? (!) 59 12 99 % 01/24/19 1700 93/50 ? ? (!) 58 12 95 % 01/24/19 1600 108/58 36.9 ?C (98.4 ?F) Temporal 60 17 100 % 01/24/19 1518 ? ? ? 60 16 95 % 01/24/19 1500 99/54 ? ? 60 14 94 % 01/24/19 1400 100/65 ? ? (!) 56 7 98 % 01/24/19 1338 ? 12 ? 01/24/19 1300 ? ? ? (!) 58 (!) 0 94 % 01/24/19 1200 161/90 37.7 ?C (99.9 ?F) Temporal 65 14 94 % Body mass index is 37.82 kg/m?. GENERAL: Alert, no distress, cooperative SKIN: Skin color, texture, turgor normal. No rashes or lesions. OROPHARYNX: Lips, mucosa, and tongue are normal.Teeth and gums, normal. Oropharynx normal. NECK: No jugulovenous distention, No carotid bruits, Carotid pulse normal contour, Supple LUNGS: Lungs clear to auscultation. Good diaphragmatic excursion. CARDIAC: Normal S1 and S2; no rubs, murmurs, or gallops ABDOMEN: Abdomen soft, non-tender, BS normal, No masses or organomegaly EXTREMITIES: Extremities normal, no deformities, edema, clubbing or skin discoloration. Good capillary refill., No ulcers NEURO: Alert, oriented X 3, Gait normal. Non-focal. Reflexes normal and symmetric. Sensation grossly intact., Cranial nerves II-XII intact PULSES: 2+ radial, 2+ carotid DATA: Diagnostic tests reviewed for today's visit: Most recent labs and imaging results. Assessment/Plan Acute respiratory failure extubated Copd Decompensated hypothryoidism with myxedema following daily T3 T4 on po Synthroid now hypercapnea Suspect adolfo/ohs uti proteus sensitive to rocephin GNB septicemia klebsiella sensitive to rocephin Distended bowel loops due to thyroid likely Plan Cont current poc Medication and Non-Pharmacologic VTE Prophylaxis/Anticoagula nts Anticoagulant AND Antiplatelet Medications (From admission, onward) Start Dose Route Frequency Ordered Stop 01/22/192229 heparin 5,000 Units injection (Medical Risk Categories) 5,000 Units SUBCUTANEOUS EVERY 12 HOURS 01/22/192228 -- 01/22/192229 pneumatic compression stockings ([place], [place]) 01/22/191814 vte non-pharmacologic prophylaxis - none indicated (sc,va) 01/22/191814 activity - mobilize patient ([place]) VTE Prophylaxis: VTE prophylaxis appropriate SIGNATURE: Shirley Romo DO PATIENT NAME: Jorge Covington DATE: January 25, 2019 TIME: 11:46 AM PAGER/CONTACT #: [phone] [facility] PROGRESS HNO ID: [id number] Author: Merrick Kuhn Service: Critical Care Author Type: Physician Type: Progress Notes Filed: 01/25/2019 1:24 PM Note Text: SERVICE DATE: 01/25/2019 SERVICE TIME: 11:20 AM INTENSIVE CARE UNIT PROGRESS NOTE BRIEF HPI: 63 y.o. M with PMH of COPD, Hypothyroidism, presenting with progressive generalized fatigue, lower extremity weakness, slurred speech and a 30 lb weight gain since July 2018. Patient was noted to be in hypoxemic and hypercapnic respiratory failure in the ER and started on BIPAP. Patient was also noted to be bradycardic and hypotensive. He was subsequently intubated after he failed BiPAP. TSH level at admission was elevated at 92.24. Blood cultures grew klebsiella - On Ceftriaxone Subjective INTERVAL EVENTS: Passed SBT, extubated this AM. Klebsiella from respiratory culture sensitive to current therapy. Objective MEDICATIONS: Current medications and allergies reviewed. Recommended/planned medication changes discussed in detail in the A/P section below. Please refer to [employer] for list of inpatient medications. VITAL SIGNS: BP 106/60 Pulse 71 Temp 36.6 ?C (97.8 ?F) (Axillary) Resp 27 Ht 167.6 cm (5' 6 ) Wt 106.3 kg (234 lb 5.6 oz) SpO2 97% BMI 37.82 kg/m? Current Weight: Weight: 106.3 kg (234 lb 5.6 oz) Admission Weight: Weight: 107 kg (236 lb) PHYSICAL EXAM: Neuro:?Awakens and Follows commands Pulmonary:???Clear but diminished at bases Reduced?bilateral??? Cardiovascular:?Regular rhythm? Abdomen:?Soft and Nontender Extremities:?Edema- Yes??Peripheral pulses- Present all extremities?? DATA: CXR IMPRESSION: Lines, tubes, and devices: ?Endotracheal tube extends to the mid to upper trachea is approximately 6.1 cm from the ede. ?Enteric tube extends below the diaphragm. ?The distal aspect of this tube is not seen. Lungs and pleura: ?Small bilateral pleural effusions with probable associated atelectasis. ?Mild worsening aeration of the right lung base. ? No pneumothorax. Cardiomediastinal silhouette: ?Stable cardiomediastinal silhouette. Susceptibility Klebsiella oxytoca Ampicillin R Ampicillin Sulbact 4 S Cefazolin S Cefepime <=1 S Ceftriaxone <=1 S Ciprofloxacin <=0.25 S Ertapenem <=0.5 S Gentamicin <=1 S Meropenem <=0.25 S Piperacillin/Tazobac <=4 S Trimeth sulfameth <=20 S ICU Checklist Last Documented/Reviewed time: 01/25/2019 11:16 AM ------ - ICU Delirium Status: CAM Negative - no action required Restraint Status: Present, will maintain Restraint Maintain Reason: Maintain safety of patient ICU Mobility-Pt Has Been Out of Bed: No - Specify Line Status: None Ventilator: None Benson Status: Present, will maintain Benson Status Details: Accurate measurement of urine output GI/Stress Ulcer Prophylaxis: H2 blockers Nutrition is at Goal: NPO VTE Prophylaxis: Chemoprophylaxis: Heparin SQ Mechanical Prophylaxis: Thigh high SCD Pressure Injury Status: None ICU Plan Reviewed with RN: Yes ICU Family Update in Last 24 Hours: Patient updated, Family updated ICU Disposition- Is Patient Clinically Ready to Transfer to [facility] or SDU?: No Discharge Planning: To be determined ASSESSMENT AND PLAN Active Hospital Problems as of 01/25/2019 Noted - Resolved Neurology Myxedema coma ([facility]) 01/23/2019 - Present Current Assessment AND Plan Assessment: H/O Hypothyroidism On Po Levothyroxine stopped taking as ran out of prescriptons PLAN: Endocrinology on board IV Levothyroxine Daily thyroid studies Pulmonary COPD (chronic obstructive pulmonary disease) ([facility]) 06/08/2018 - Present Acute respiratory failure ([facility]) 01/22/2019 - Present Current Assessment AND Plan Assessment: Intubated 01/22 overnight ---> Extubated 01/25 PLAN: Continue scheduled nebs Aggressive pulm toilet OOB ISS Infectious Disease Septicemia ([facility]) 01/23/2019 - Present Current Assessment AND Plan Assessment: Growing klebsiella in blood on Ceftriaxone, UA dirty, Urine Culture negative, past h/o UTI with Proteus which was sensitive to Ceftriaxone PLAN: Continue Ceftriaxone Medication and Non-Pharmacologic VTE Prophylaxis/Anticoagula nts Anticoagulant AND Antiplatelet Medications (From admission, onward) Start Dose Route Frequency Ordered Stop 01/22/192229 heparin 5,000 Units injection (Medical Risk Categories) 5,000 Units SUBCUTANEOUS EVERY 12 HOURS 01/22/192228 -- 01/22/192229 pneumatic compression stockings (sc,oh) 01/22/191814 vte non-pharmacologic prophylaxis - none indicated (sc,oh) 01/22/191814 activity - mobilize patient (sc,va) VTE Prophylaxis: VTE prophylaxis appropriate Plan of care discussed with: Provider, RN, Patient SIGNATURE: Camila Rizvi MD PATIENT NAME: Jorge Covington DATE: January 25, 2019 TIME: 11:20 AM PAGER/CONTACT #: [phone] ICU STAFF PHYSICIAN NOTE OF PERSONAL INVOLVEMENT IN CARE ? Critically ill 63 year old male admitted to ICU with acute on chronic respiratory failure and myxedema coma. Extubated on 01/25/19. ? Continue Noninvasive ventilation qhs Continue BPH/IS/OOB/broncohodila tor-anticholinergic therapy Supplemental oxygen be titrated to a target of 88 to 92 percent pulse oxygen saturation Continue steroids x 5 days Continue abx per c/s results Physical therapy Electrolyte replacement to keep K>4 and Mg>2 to decrease risk of a Fib Maintain day/night cycle, avoid BDZ, anticholinergics, anti-histamines, minimize opioids CLD SSI SCDs, sc heparin Continue fluid support and respiratory/hemodynamic monitoring Continue ICU care ? This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 [id number] Author: Alessandra (Rn) VIKTOR Norton Service: Nursing Author Type: Registered Nurse Type: Nursing Progress Note Filed: 01/24/2019 12:49 PM Note Text: Nursing Progress: Topic: RESTRAINT NON-VIOLENT PATIENT NAME: Jorge Covington PATIENT LOCATION: [facility]0001/[id number] The patient demonstrates Attempting to Remove Medical Devices Vital to Medical Stability, Inability to Retain Information Regarding Safety Directions as evidenced by the following behaviors reaches for ET tube, is very strong which pose an imminent danger to self or others. The following interventions were attempted but were not effective in protecting the patient's safety: Contraindicated - Imminent Safety Risk Next, a comprehensive assessment was performed and warranted placing the patient in Soft Bilateral Wrists, the least restrictive restraint needed to protect the patient's safety. Ongoing safety assessments and evaluation for earliest removal of restraints will be performed. DATE: January 24, 2019 TIME: 12:49 PM Alessandra Norton RN [facility] 01-24-2019 NUTRITION HNO ID: [id number] Author: Laurie Gonzalez Service: Nutrition Therapy Author Type: Registered Dietitian Type: Nutrition Filed: 01/24/2019 12:22 PM Note Text: NUTRITION THERAPY INITIAL ASSESSMENT SERVICE DATE: 01/24/2019 SERVICE TIME: 11:30 am RECOMMENDED MALNUTRITION DIAGNOSIS: NO MALNUTRITION IDENTIFIED NUTRITION CARE PLAN: Problem, Etiology and Signs/Symptoms: Suboptimal protein/energy intake related to intubation as evidenced by NPO status Enteral feeding ordered today, Isosource 1.5 @ 10 ml/hour, 30 ml flush 6x daily. Recommend goal rate of 50 ml/hour to provide 1800 kcal, 82 gm protein, 917 ml free water. Intervention: Continue tube feeding, advance as appropriate Monitor intake Follow up within 5 days or as consulted Monitor and Evaluation: Goal: Meet >75% of estimated needs Monitor tolerance to tube feeding Discharge Nutrition Recommendations: TBD Per HPI: Pt admitted with altered and hypoxia, currently intubated. PMH of COPD, Hypothyroidism, bilateral Leg weakness Orders Placed This Encounter DIET TUBE FEED - CONTIN (NO TRAY) Standing Status: Standing Number of Occurrences: 1 Order Specific Question: TF Product Answer: Isosource 1.5 Order Specific Question: TF Total mL per 24 hours Answer: 240 Order Specific Question: TF Goal Rate (mL/hr) Answer: 10 Order Specific Question: TF Route Answer: OROGASTRIC Order Specific Question: TF Initial Rate (mL/hr) Answer: 10 Order Specific Question: TF Water Flush Amount (mL) Answer: 30 Order Specific Question: TF Water Flush Frequency (times/day) Answer: 6 Lines and Drains: Peripheral Left Antecubital 20 Gauge (Active) Nutritional Intake Prior to Admission: Unable to determine GI symptoms: unable to determine at this time Nutrition Abdominal Exam: and not assessed ANTHROPOMETRICS Height: 167.6 cm (5' 6 ) Admission Weight: 107 kg (236 lb) Current Weight: 106.3 kg (234 lb 5.6 oz) Body mass index is 37.82 kg/m?. class 2 obesity Weight has increased by 17.4 kg over 6 months representing 16.4 % weight change Last Wt 01/22/19 : 106.3 kg (234 lb 5.6 oz) 01/18/19 : 99.8 kg (220 lb) 09/08/18 : 88.9 kg (196 lb) 06/22/18 : 93.4 kg (206 lb) 06/16/18 : 92.3 kg (203 lb 7.8 oz) 06/02/18 : 99.8 kg (220 lb 0.3 oz) 06/02/18 : 99.8 kg (220 lb) 06/02/18 : 99.8 kg (220 lb) 05/26/18 : 99.8 kg (220 lb) 05/05/18 : 99.8 kg (220 lb) 02/23/18 : 99.8 kg (220 lb) 01/12/18 : 104.3 kg (230 lb) [place] Body Weight: 63.8kg Resting Metabolic Rate: 1809 Estimated kilocalorie needs: 3148-4427 kilocalories determined by 25-30 kcal/kg Estimated protein needs:65-83 grams determined by 1.0-1.3 g/kg [place] weight Estimated fluid needs: 2782-4340 milliliters based on 1 mL per kcal NUTRITION FOCUSED PHYSICAL EXAM: Unable to perform exam due to patient unable to participate, will re-attempt during reassessment. Temperature Max in 24 hours: Temp (24hrs), Av.2 ?C (98.9 ?F), Min:36.9 ?C (98.4 ?F), Max:37.5 ?C (99.5 ?F) BP 97/54 Pulse (P) 60 Temp 37.5 ?C (99.5 ?F) (Temporal Artery) Resp 18 Ht 167.6 cm (5' 6 ) Wt 106.3 kg (234 lb 5.6 oz) SpO2 (P) 97% BMI 37.82 kg/m? Recent Labs 01/24/19 0339 01/22/19 1227 GLUC 127* < > 87 BUN 8* < > 10 CREAT 0.94 < > 0.90 NA 140 < > 140 K 4.0 < > 3.6* CHLOR 105 < > 103 CO2 23 < > 29 ALB -- -- 4.1 P 1.6* < > -- HB 11.7* < > 13.8 HCT 36.3* < > 44.0 WBC 9.60 < > 5.42 MG 1.9 < > -- < > = values in this interval not displayed. Potential Signs of Inflammation: hyperglycemia and chronic condition MNT Billing Type: Initial Assess/15 min 2 units SIGNATURE: Laurie Gonzalez RD, LD PATIENT NAME: Jorge Covington DATE: January 24, 2019 TIME: 12:03 PM PAGER: [facility] PROGRESSon 01-24-2019 PROGRESS HNO ID: [id number] Author: Merrick Kuhn Service: Critical Care Author Type: Physician Type: Progress Notes Filed: 01/24/2019 3:46 PM Note Text: SERVICE DATE: 01/24/2019 SERVICE TIME: 11:40 AM INTENSIVE CARE UNIT PROGRESS NOTE BRIEF HPI: 63 y.o. M with PMH of COPD, Hypothyroidism, presenting with progressive generalized fatigue, lower extremity weakness, slurred speech and a 30 lb weight gain since July 2018. Patient was noted to be in hypoxemic and hypercapnic respiratory failure in the ER and started on BIPAP. Patient was also noted to be bradycardic and hypotensive. He was subsequently intubated after he failed BiPAP. TSH level at admission was elevated at 92.24. Blood cultures grew GNB - On Ceftriaxone Subjective INTERVAL EVENTS: Hemodynamically stable overnight. Continues mechanical ventilation with sedation. Klebsiella growing from blood cultures. Objective MEDICATIONS: Current medications and allergies reviewed. Recommended/planned medication changes discussed in detail in the A/P section below. Please refer to [facility] for list of inpatient medications. VITAL SIGNS: BP 97/54 Pulse (!) 53 Temp 37.5 ?C (99.5 ?F) (Temporal Artery) Resp 18 Ht 167.6 cm (5' 6 ) Wt 106.3 kg (234 lb 5.6 oz) SpO2 94% BMI 37.82 kg/m? Current Weight: Weight: 106.3 kg (234 lb 5.6 oz) Admission Weight: Weight: 107 kg (236 lb) PHYSICAL EXAM: Neuro: Awakens and Follows commands Pulmonary: Breath Sounds Equal: No. Reduced bilateral Cardiovascular: Regular rhythm Abdomen: Soft and Nontender Extremities: Edema- Yes Peripheral pulses- Present all extremities DATA: Diagnostic tests reviewed for today's visit: Most recent labs and imaging results. ICU Checklist Last Documented/Reviewed time: 01/23/2019 10:57 AM ------ - ICU Delirium Status: CAM Negative - no action required Restraint Status: Present, will maintain Restraint Maintain Reason: Maintain safety of patient ICU Mobility-Pt Has Been Out of Bed: No - Specify Line Status: None Ventilator: Present Head of Bed > 30 degrees?: Yes Mouth Care?: Yes Spontaneous Awakening?: Yes Spontaneous Breathing?: Yes Ready for Extubation?: No - specify Benson Status: Present, will maintain Benson Status Details: Accurate measurement of urine output GI/Stress Ulcer Prophylaxis: H2 blockers Nutrition is at Goal: NPO VTE Prophylaxis: Chemoprophylaxis: Heparin SQ Mechanical Prophylaxis: Thigh high SCD Pressure Injury Status: None ICU Plan Reviewed with RN: Yes ICU Family Update in Last 24 Hours: Patient updated, Family updated ICU Disposition- Is Patient Clinically Ready to Transfer to [facility] or SDU?: No Discharge Planning: To be determined ASSESSMENT AND PLAN Active Hospital Problems as of 01/24/2019 Noted - Resolved Neurology Myxedema coma (HCC) 01/23/2019 - Present Current Assessment AND Plan Assessment: H/O Hypothyroidism On Po Levothyroxine stopped taking as ran out of prescriptons PLAN: Endocrinology on board IV Levothyroxine Daily thyroid studies Pulmonary COPD (chronic obstructive pulmonary disease) ([facility]) 06/08/2018 - Present Acute respiratory failure ([facility]) 01/22/2019 - Present Current Assessment AND Plan Assessment: Intubated 01/22 overnight PLAN: Lung protective ventilation Wean as tolerated Infectious Disease Septicemia ([facility]) 01/23/2019 - Present Current Assessment AND Plan Assessment: Growing klebsiella in blood on Ceftriaxone, UA dirty, Urine Culture negative, past h/o UTI with Proteus which was sensitive to Ceftriaxone PLAN: Continue Ceftriaxone Medication and Non-Pharmacologic VTE Prophylaxis/Anticoagula nts Anticoagulant AND Antiplatelet Medications (From admission, onward) Start Dose Route Frequency Ordered Stop 01/22/19 223 heparin 5,000 Units injection (Medical Risk Categories) 5,000 Units SUBCUTANEOUS EVERY 12 HOURS 01/22/192228 -- 01/22/192229 pneumatic compression stockings (sc,va) 01/22/191814 vte non-pharmacologic prophylaxis - none indicated (sc,va) 01/22/191814 activity - mobilize patient (sc,va) VTE Prophylaxis: VTE prophylaxis appropriate Plan of care discussed with: Provider, RN, Patient SIGNATURE: Camila Rizvi MD PATIENT NAME: Jorge Covington DATE: January 24, 2019 TIME: 11:40 AM PAGER/CONTACT #: [phone] ICU STAFF PHYSICIAN NOTE OF PERSONAL INVOLVEMENT IN CARE Critically ill 63 year old male admitted to ICU with acute on chronic respiratory failure and myxedema coma. Continue lung protective mechanical ventilation Continue empiric antibiotics Continue levothyroxine and steroids per endocrinology recs Will wean ventilatory support as tolerated and extubate when ready. Continue fluid support and respiratory/hemodynamic monitoring Continue ICU care This patient has a high probability of sudden, clinically significant deterioration, which requires the highest level of physician preparedness to intervene urgently. I managed/ supervised life or organ supporting interventions that required frequent physician assessment. I devoted my full attention to the direct care of this patient, including physical examination, verifying findings, reviewing labs and imaging, discussing with primary physician and consultants, and developing a plan of care with the bedside nurse for the amount of time indicated below. Critical Care Documentation: The patient has the following organ/system impairment(s): acute respiratory failure,encephalopathy, severe metabolic disorder and complex life-threatening medical problem(s). Time spent providing critical care services: 50 minutes. The time excludes any associated procedures which will be documented and billed separately. SIGNATURE: Merrick Kuhn MD DATE: 01/24/2019 TIME: 3:41 PM [facility] PROGRESS HNO ID: [id number] Author: Shirley Romo Service: ? Author Type: Physician Type: Progress Notes Filed: 01/24/2019 9:42 AM Note Text: INTERNAL MEDICINE PROGRESS NOTE SERVICE DATE: 01/24/2019 SERVICE TIME: 9:38 AM ADMITTING PHYSICIAN: Shirley Romo Subjective CHIEF COMPLAINT: Weakness, hypoxia Current Facility-Administered Medications Medication Dose Route Frequency - NORepinephrine 16 mg in D5W 250 mL (LEVOPHED) 0.5-50 mcg/min INTRAVENOUS CONTINUOUS - DOPamine iv infusion 800 mg/250 mL D5W 2.5-20 mcg/kg/min INTRAVENOUS CONTINUOUS - levothyroxine 150 mcg in NaCl (PF) 0.9% 3 mL iv syringe 150 mcg INTRAVENOUS DAILY (6 AM) - docusate 100 mg oral liquid (DIOCTO, COLACE) 100 mg ORAL BID - acetaminophen 1,000 mg tab(s) (TYLENOL) 1,000 mg ORAL q 6 H PRN - tamsulosin ER 0.4 mg cap(s) (FLOMAX) 0.4 mg ORAL DAILY - polyethylene glycol 3350 17 g packet (MIRALAX, GLYCOLAX) 17 g ORAL DAILY - senna 8.6 mg tab(s) (SENOKOT) 8.6 mg ORAL BID PRN - pantoprazole DR 40 mg tab(s) (PROTONIX) 40 mg ORAL DAILY (6 AM) - baclofen 10 mg tab(s) (LIORESAL) 10 mg ORAL TID - nicotine 14 mg/24 hr 1 Patch (NICODERM) 1 Patch TRANSDERMAL DAILY - NaCl 0.9% 3-5 mL 3-5 mL INTRAVENOUS q 12 H - ipratropium-albuterol 3 mL nebulizer solution (DUONEB) 3 mL INHALATION q 4 H while awake - ondansetron orally disintegrating 4 mg tab(s) (ZOFRAN ODT) 4 mg ORAL q 6 H PRN Or - ondansetron (PF) 4 mg injection (ZOFRAN) 4 mg INTRAVENOUS q 6 H PRN - nicotine -- REMOVE patch OTHER DAILY And - nicotine - verify patch OTHER q 8 H - fenofibrate 200 mg cap(s) (LOFIBRA) 200 mg ORAL DAILY WITH BREAKFAST - loratadine 10 mg tab(s) (CLARITIN) 10 mg ORAL DAILY - oxybutynin XL 5 mg tab(s) (DITROPAN XL) 5 mg ORAL DAILY - heparin 5,000 Units injection 5,000 Units SUBCUTANEOUS q 12 H - cefTRIAXone 1 g in D5W 100 mL MB+ (ROCEPHIN) 1 g INTRAVENOUS q 24 H - propofol infusion (DIPRIVAN) 5-60 mcg/kg/min INTRAVENOUS CONTINUOUS - fentaNYL 20 mcg/mL iv infusion in NaCl 0.9% 100 mL 25-250 mcg/hr INTRAVENOUS CONTINUOUS INTERVAL HISTORY OF PRESENT ILLNESS: Pt remains sedated on the ventilator this am. Endocrinology following and appreciate their input. Pulmonary also following. Growing GNB in blood likely from urine on rocephin now. Objective PHYSICAL EXAM: Patient Vitals for the past 24 hrs: BP Temp Temp src Pulse Resp SpO2 01/24/19 0810 ? ? ? (!) 53 18 ? 01/24/19 0802 ? ? ? (!) 54 18 94 % 01/24/19 0600 97/54 ? ? (!) 49 ? 97 % 01/24/19 0505 102/60 ? ? (!) 53 ? 99 % 01/24/19 0410 ? ? ? (!) 54 18 97 % 01/24/19 0400 141/96 ? ? (!) 59 23 96 % 01/24/19 0300 147/83 37.5 ?C (99.5 ?F) Temporal Art (!) 55 18 97 % 01/24/19 0200 103/58 ? ? (!) 54 18 98 % 01/24/19 0100 146/83 ? ? (!) 54 18 97 % 01/24/19 0000 114/57 ? ? (!) 49 18 98 % 01/23/19 2334 ? 37.1 ?C (98.8 ?F) ? (!) 52 18 97 % 01/23/19 2300 89/53 ? ? (!) 54 18 97 % 01/23/19 2200 138/65 ? ? (!) 57 18 95 % 01/23/19 2100 111/65 ? ? (!) 51 (!) 2 94 % 01/23/191999 112/62 ? ? (!) 56 7 93 % 01/23/191954 ? ? ? (!) 54 18 ? 01/23/190 ? 95 % 01/23/191924 ? ? ? (!) 47 19 97 % 01/23/19 1900 135/75 ? ? (!) 48 9 96 % 01/23/19 1800 117/65 ? ? (!) 53 18 98 % 01/23/19 1730 147/68 ? ? (!) 58 18 90 % 01/23/19 1700 109/68 ? ? (!) 50 18 94 % 01/23/19 1630 107/67 ? ? (!) 50 18 93 % 01/23/19 1600 104/63 36.9 ?C (98.4 ?F) Axillary (!) 53 18 93 % 01/23/19 1532 ? ? ? (!) 54 18 ? 01/23/19 1530 108/64 ? ? (!) 53 18 94 % 01/23/19 1522 ? ? ? (!) 54 18 94 % 01/23/19 1500 120/76 ? ? (!) 53 18 94 % 01/23/19 1430 156/91 ? ? (!) 50 16 99 % 01/23/19 1400 104/59 ? ? (!) 50 18 91 % 01/23/19 1330 111/56 ? ? (!) 50 18 91 % 01/23/19 1300 96/51 ? ? (!) 53 18 91 % 01/23/19 1230 106/59 ? ? (!) 52 18 (!) 58 % 01/23/19 1209 ? ? ? (!) 54 ? 96 % 01/23/19 1200 101/55 ? ? (!) 50 18 96 % 01/23/19 1130 115/68 ? ? (!) 50 18 98 % 01/23/19 1100 129/64 ? ? (!) 55 15 99 % 01/23/19 1030 140/88 ? ? (!) 57 13 99 % 01/23/19 1000 144/77 ? ? 116 18 (!) 77 % Body mass index is 37.82 kg/m?. GENERAL: sedated SKIN: Skin color, texture, turgor normal. No rashes or lesions. OROPHARYNX: Lips, mucosa, and tongue are normal.Teeth and gums, normal. Oropharynx normal. NECK: No jugulovenous distention, No carotid bruits, Carotid pulse normal contour, Supple LUNGS: Lungs clear to auscultation. Good diaphragmatic excursion. CARDIAC: Normal S1 and S2; no rubs, murmurs, or gallops ABDOMEN: Abdomen soft, non-tender, BS normal, No masses or organomegaly EXTREMITIES: Extremities normal, no deformities, edema, clubbing or skin discoloration. Good capillary refill., No ulcers NEURO: sedated PULSES: 2+ radial, 2+ carotid DATA: Diagnostic tests reviewed for today's visit: Most recent labs and imaging results. Assessment/Plan Acute respiratory failure currently vent dependent Copd Decompensated hypothryoidism with myxedema following daily T3 T4 on iv synthroid hypercapnea Suspect adolfo/ohs uti cultures pending GNB septicemia on rocephin tom urine source Distended bowel loops due to thyroid likely Plan Continue current poc Steroids changed to hydrocortisone 100 mg iv q 8 Cont rocephin Repeat blood and urine cultures Medication and Non-Pharmacologic VTE Prophylaxis/Anticoagula nts Anticoagulant AND Antiplatelet Medications (From admission, onward) Start Dose Route Frequency Ordered Stop 01/22/19 223 heparin 5,000 Units injection (Medical Risk Categories) 5,000 Units SUBCUTANEOUS EVERY 12 HOURS 01/22/192228 -- 01/22/19 223 pneumatic compression stockings (sc,va) 01/22/19 181 vte non-pharmacologic prophylaxis - none indicated (sc,va) 01/22/191814 activity - mobilize patient (sc,va) VTE Prophylaxis: VTE prophylaxis appropriate SIGNATURE: Shirley Romo DO PATIENT NAME: Jorge Covington DATE: January 24, 2019 TIME: 9:38 AM PAGER/CONTACT #: [phone] Normal [facility] Phosphoruson 01-24-2019 Phosphate [Mass/Vol] 1.6 mg/dL Low 2.7-4.8 [facility] Comment on above: Performed By: #### C BCDIF, CMP #### [facility] [address] [place] [address] T3on 01-24-2019 T3 26 ng/dL Low 79-165 [facility] Comment on above: Performed By: #### C BCDIF, CMP #### [facility] [address] [facility] [phone] THERAPY NTon 01-24-2019 THERAPY NT HNO ID: [id number] Author: Faith De La RosaOtDemi Chew Service: Occupational Therapy Author Type: Occupational Therapist Type: Therapy (PT/OT/Speech/Resp) Filed: 01/24/2019 1:33 PM Note Text: OCCUPATIONAL THERAPY MISSED VISIT SERVICE DATE: 01/24/2019 SERVICE TIME: 1323 to 1323 ROOM: [place] [address] Attempted Evaluation. Patient not seen due to Illness. Per conversation with RN she confirmed is Pt confused, intubated and sedated. Discontinued OT orders Please reconsult if/when appropriate. ? SIGNATURE: Faith Chew OTR/L PATIENT NAME: Jorge Covington DATE: January 24, 2019 TIME: 1:26 PM [facility] THERAPY NT HNO ID: [id number] Author: Annie De La RosaPtDemi Hare Service: Physical Therapy Author Type: Physical Therapist Type: Therapy (PT/OT/Speech/Resp) Filed: 01/24/2019 11:48 AM Note Text: PHYSICAL THERAPY MISSED VISIT SERVICE DATE: 01/24/2019 SERVICE TIME: 1023 to 1023 ROOM: [place] [address] Attempted Evaluation. Patient not seen due to (per RN not appropriate, to DC PT orders). Pt confused, intubated and sedated. Discontinued PT orders (without evaluation) as per VIKTOR Aparicio's suggestions. Please reconsult if/when appropriate. SIGNATURE: Annie Hare, CUAUHTEMOC PATIENT NAME: Jorge Covington DATE: January 24, 2019 TIME: 10:25 AM [facility] XR CHEST 1V FRONTALon 2018 XR CHEST 1V FRONTAL * * *Final Report* * * DATE OF EXAM: Jan 24 2019 11:13AM MDX 5290 - XR CHEST 1V FRONTAL / PROCEDURE REASON: Acute respiratory illness * * * * Physician Interpretation * * * * EXAMINATION: CHEST RADIOGRAPH (SINGLE VIEW AP OR PA) Clinical History: Acute respiratory illness M: [id number]_4 Comparison: 01/22/2019 RESULT: Lines, tubes, and devices: Endotracheal tube terminates approximately 3.4 cm above the level of ede. NG/OG tube courses below the left hemidiaphragm; the tip is not included on this exam. Lungs and pleura: Left basilar atelectasis and/or infectious infiltrate. No significant pleural effusion is identified. No pneumothorax. Cardiomediastinal silhouette: Stable. Other: No acute osseous abnormality. IMPRESSION: Left basilar atelectasis and/or infectious infiltrate. No significant pleural effusion. Partner Alliance Manager: PSCB Transcribe Date/Time: Jan 24 2019 11:32A Dictated by : CRISTEL MACKENZIE MD This examination was interpreted and the report reviewed and electronically signed by: CRISTEL MACKENZIE MD on Jan 24 2019 11:34AM EST [id number] [facility] HNO ID: [id number] Author: DAVID Webb (Ct) Service: ? Author Type: Clinical Multimedia Specialist Type: Allied Health Filed: 01/23/2019 12:32 PM Note Text: Radiology Service Progress Note PATIENT NAME: Jorge Covington DATE OF SERVICE: January 23, 2019 TIME: 12:32 PM PATIENT IDENTITY VERIFICATION COMPLETED USING TWO (2) METHODS: Name and Date of confirmed by identification band. PATIENT GENDER DATA: Male PATIENT RELEVANT IMPLANT DATA REVIEWED: Not Applicable RADIOLOGY DEPARTMENT: General X-ray: Exam(s) Completed: Abdomen X-Ray Abdomen PERIPHERAL IV DATA: Not applicable SIGNED BY: DAVID Webb January 23, 2019 12:32 PM [facility] HNO ID: [id number] Author: DAVID Sykes (Ct) Service: ? Author Type: Clinical Multimedia Specialist Type: Allied Health Filed: 01/22/2019 11:53 PM Note Text: Radiology Service Progress Note PATIENT NAME: Jorge Covington DATE OF SERVICE: January 22, 2019 TIME: 11:52 PM PATIENT IDENTITY VERIFICATION COMPLETED USING TWO (2) METHODS: Name and Date of confirmed by identification band. PATIENT GENDER DATA: Male PATIENT RELEVANT IMPLANT DATA REVIEWED: Not Applicable RADIOLOGY DEPARTMENT: General X-ray: Exam(s) Completed: Chest X-Ray Abdomen X-Ray Abdomen PERIPHERAL IV DATA: Not applicable SIGNED BY: DAVID Sykes January 22, 2019 11:52 PM [facility] Basic Metabolic Panlon 01-23 Anion gap [Moles/Vol] 12 mmol/L Normal 9-18 [facility] Comment on above: Performed By: #### B MP ####[facility] [address] [place] [address] Calcium [Mass/Vol] 8.7 mg/dL Normal 8.5-10.2 [facility] Comment on above: Performed By: #### B MP ####[facility] [address] [place] [address] Chloride [Moles/Vol] 105 mmol/L Normal 97-105 [facility] Comment on above: Performed By: #### B MP ####[facility] [address] [place] [address] CO2 [Moles/Vol] 23 mmol/L Normal 22-30 [facility] Comment on above: Performed By: #### B MP ####[place] [address] Creatinine [Mass/Vol] 0.71 mg/dL Low 0.73-1.22 [facility] Comment on above: Performed By: #### B MP ####[facility] [address] [place] [address] eGFR- Amer. >60 Normal [facility] Comment on above: Performed By: #### B MP ####[place] [phone] GFR/1.73 sq M predicted among non-blacks MDRD (S/P/Bld) [Vol rate/Area] mL/min/{1.73_m2} Normal [facility] Comment on above: Result Comment: eGFR (Estimated GFR) Units of measure: mL/min/1.73 meters squared eGFR is derived from the reexpressed MDRD Study equation using the following parameters: serum creatinine, age, gender and race. The creatinine assay has been calibrated to be traceable to IDMS. An eGFR <60 mL/min/1.73m2 for >3 months is consistent with chronic kidney disease. Refer to KDOQI guidelines for clinical interpretation. In patients with unstable renal function, e.g. those with acute kidney injury, the eGFR may not accurately reflect actual GFR. Performed By: #### B MP ####[facility] [address] [place] [address] Glucose [Mass/Vol] 188 mg/dL High 74-99 [facility] Comment on above: Result Comment: The [place] [employer] (ADA) provides guidance for cutoff values for fasting glucose and random glucose. The ADA defines fasting as no caloric intake for at least 8 hours. Fasting plasma glucose results between 100 to 125 mg/dL indicate increased risk for diabetes (prediabetes). Fasting plasma glucose results greater than or equal to 126 mg/dL meet the criteria for diagnosis of diabetes. In the absence of unequivocal hyperglycemia, results should be confirmed by repeat testing. In a patient with classic symptoms of hyperglycemia or hyperglycemic crisis, random plasma glucose results greater than or equal to 200 mg/dL meet the criteria for diagnosis of diabetes. Reference: Standards of Medical Care in Diabetes 2016, [place] [employer]. Diabetes Care. 2016.39(Suppl 1). Performed By: #### B MP ####[facility] [address] [place] [address] Potassium [Moles/Vol] 4.3 mmol/L Normal 3.7-5.1 [facility] Comment on above: Performed By: #### B MP ####[facility] [address] [place] [address] Sodium [Moles/Vol] 140 mmol/L Normal 136-144 [facility] Comment on above: Performed By: #### B MP ####[facility] [address] [place] [address] Urea nitrogen [Mass/Vol] 8 mg/dL Low 9-24 [facility] Comment on above: Performed By: #### B MP ####[facility] [address] [place] [address] Anion gap [Moles/Vol] 9 mmol/L Normal 9-18 [facility] Comment on above: Performed By: #### C BC, BMP, MG1, PHOS ####[facility] [address] [place] [address] Calcium [Mass/Vol] 8.8 mg/dL Normal 8.5-10.2 [facility] Comment on above: Performed By: #### C BC, BMP, MG1, PHOS ####[facility] [address] [place] [address] Chloride [Moles/Vol] 102 mmol/L Normal 97-105 [facility] Comment on above: Performed By: #### C BC, BMP, MG1, PHOS ####[facility] [address] [place] [address] CO2 [Moles/Vol] 22 mmol/L Normal 22-30 [facility] Comment on above: Performed By: #### C BC, BMP, MG1, PHOS ####[facility] [address] [place] [address] Creatinine [Mass/Vol] 0.39 mg/dL Low 0.73-1.22 [facility] Comment on above: Performed By: #### C BC, BMP, MG1, PHOS ####[facility] [address] [place] [address] eGFR- Amer. >60 Normal [facility] Comment on above: Performed By: #### C BC, BMP, MG1, PHOS ####[facility] [address] [place] [address] GFR/1.73 sq M predicted among non-blacks MDRD (S/P/Bld) [Vol rate/Area] mL/min/{1.73_m2} Normal [facility] Comment on above: Result Comment: eGFR (Estimated GFR) Units of measure: mL/min/1.73 meters squared eGFR is derived from the reexpressed MDRD Study equation using the following parameters: serum creatinine, age, gender and race. The creatinine assay has been calibrated to be traceable to IDMS. An eGFR <60 mL/min/1.73m2 for >3 months is consistent with chronic kidney disease. Refer to KDOQI guidelines for clinical interpretation. In patients with unstable renal function, e.g. those with acute kidney injury, the eGFR may not accurately reflect actual GFR. Performed By: #### C BC, BMP, MG1, PHOS ####[facility] [address] [place] [address] Glucose [Mass/Vol] 165 mg/dL High 74-99 [facility] Comment on above: Result Comment: The [place] [employer] (ADA) provides guidance for cutoff values for fasting glucose and random glucose. The ADA defines fasting as no caloric intake for at least 8 hours. Fasting plasma glucose results between 100 to 125 mg/dL indicate increased risk for diabetes (prediabetes). Fasting plasma glucose results greater than or equal to 126 mg/dL meet the criteria for diagnosis of diabetes. In the absence of unequivocal hyperglycemia, results should be confirmed by repeat testing. In a patient with classic symptoms of hyperglycemia or hyperglycemic crisis, random plasma glucose results greater than or equal to 200 mg/dL meet the criteria for diagnosis of diabetes. Reference: Standards of Medical Care in Diabetes 2016, [place] [employer]. Diabetes Care. 2016.39(Suppl 1). Performed By: #### C BC, BMP, MG1, PHOS ####[facility] [address] Potassium [Moles/Vol] Unable to assay. Specimen hemolyzed. Normal 3.7-5.1 [facility] Comment on above: Result Comment: CALL ED TO ICU JUAN F CUADRA Performed By: #### C BC, BMP, MG1, PHOS ####[facility] [address] [place] [phone] Sodium [Moles/Vol] 133 mmol/L Low 136-144 [facility] Comment on above: Performed By: #### C BC, BMP, MG1, PHOS ####[facility] [address] Urea nitrogen [Mass/Vol] 9 mg/dL Normal 9-24 [facility] Comment on above: Performed By: #### C BC, BMP, MG1, PHOS ####[facility] [address] [place] [phone] CBCon 01-23-2019 Erythrocyte distribution width (RBC) [Ratio] 19.0 % High 11.5-15.0 [facility] Comment on above: Performed By: #### C BC, BMP, MG1, PHOS ####[facility] [address] Hematocrit (Bld) [Volume fraction] 41.0 % Normal 39.0-51.0 [facility] Comment on above: Performed By: #### C BC, BMP, MG1, PHOS ####[facility] [phone] Hemoglobin (Bld) [Mass/Vol] 12.9 g/dL Low 13.0-17.0 [facility] Comment on above: Performed By: #### C BC, BMP, MG1, PHOS ####[facility] [address] [place] [address] MCH (RBC) [Entitic mass] 29.8 pG Normal 26.0-34.0 [facility] Comment on above: Performed By: #### C BC, BMP, MG1, PHOS ####[facility] [address] [place] [address] MCHC (RBC) [Mass/Vol] 31.5 g/dL Normal 30.5-36.0 [facility] Comment on above: Performed By: #### C BC, BMP, MG1, PHOS ####[facility] [address] [place] [address] MCV (RBC) [Entitic vol] 94.7 fL Normal 80.0-100.0 [facility] Comment on above: Performed By: #### C BC, BMP, MG1, PHOS ####[facility] [address] [place] [address] Platelet mean volume (Bld) [Entitic vol] 10.1 fL Normal 9.0-12.7 [facility] Comment on above: Performed By: #### C BC, BMP, MG1, PHOS ####[facility] [address] [place] [address] Platelets (Bld) [#/Vol] 388 10*3/uL Normal 150-400 [facility] Comment on above: Performed By: #### C BC, BMP, MG1, PHOS ####[facility] [address] [place] [address] RBC (Bld) [#/Vol] 4.33 10*6/uL Normal 4.20-6.00 [facility] Comment on above: Performed By: #### C BC, BMP, MG1, PHOS ####[facility] [address] [place] [address] WBC (Bld) [#/Vol] 6.32 10*3/uL Normal 3.70-11.00 [facility] Comment on above: Performed By: #### C BC, BMP, MG1, PHOS ####[facility] [address] [place] [phone] CONSULTon 01-23-2019 CONSULT HNO ID: [id number] Author: Rossi Vásquez) Marleny Service: Endocrinology Author Type: Physician Type: Consults Filed: 01/23/2019 12:24 PM Note Text: ENDOCRINOLOGY CONSULTATION DATE OF CONSULTATION: January 23, 2019 REASON FOR CONSULTATION: Profound hypothyroidism, 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 RECOMMENDATION: -- START IV LEVOTHYROXINE NOW AT 150 mcg daily until free t4 is detectable. He likely has bowel wall edema and poor absorption, also requires hormone treatment rapidly due to overt symptoms. He has no cardiac history, therefore, his risk of arrhythmias and decreased oxygen consumption to the myocardium precipitating an anginal event are low. -- IV lt4 is being ordered from [facility] and should arrive by 1 pm -- Will need at least one week's worth of LT4 IV in stock for this patient -- CHECK FREE T4 and total T3 DAILY -- Check TSH every 2-3 days, it will not change much -- Presume adrenal insufficiency until proven otherwise. the patient is already receiving steroids (IV methyl prednisone 60 mg q6 hours) for COPD exacerbation. Additional steroids at this time are not necessary. Please let us know if you stop the steroids. -- Given that he is already on steroids checking cortisol level at this time would be futile unless it was taken PRIOR TO THE FIRST DOSE OF STEROIDS -- Continuous tele; MAP goal >65 -- Please call me for questions ANYTIME -- Keep in ICU, critically ill patient HISTORY: 63 year old male, current smoker, history COPD, hypothyroidism - historically compliant with levothyroxine 150 mcg. However in the last month it is unclear if the patient has been on levothyroxine. 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 Per , assisted living facility did not have an update medication list and it is unclear whether the patient was actually receiving Lt4 or not. Confirmed, is that he has been out of levothyroxine for the last 2 weeks. In the last few days, his has noticed that he has been hallucinating, thinking that he was seeing his father, climbing rothman that are not present and seeing cats that are not there. He has also having progressive joint pain and gained weight (uknown amount exactly) and his has noticed progressive swelling of his face and body. The patient was brought to the ED, found to be bradycardic and lethargic. He required the support of BIPAP, however, due to progressive respiratory failure the patient required intubation and admission to our medical ICU. He currently remains intubated and requires the support of levophed and dopamine. He has not yet received IV levothyroxine. He is alert and able to understand and follow commands. However he does appear tired and sleeps spontaneously throughout my conversation. Current Facility-Administered Medications Medication Dose Route Frequency Provider Last Rate Last Dose - NORepinephrine 16 mg in D5W 250 mL (LEVOPHED) 0.5-50 mcg/min INTRAVENOUS CONTINUOUS Gayatri E ([employer]) Sly - DOPamine iv infusion 800 mg/250 mL D5W 2.5-20 mcg/kg/min INTRAVENOUS CONTINUOUS Gayatri E ([employer] Attendant) Sly Stopped at 01/23/19 0324 - levothyroxine 150 mcg in NaCl (PF) 0.9% 3 mL iv syringe 150 mcg INTRAVENOUS DAILY (6 AM) Horace Jose Jain 150 mcg at 01/23/19 0307 - levothyroxine 150 mcg in NaCl (PF) 0.9% 3 mL iv syringe 150 mcg INTRAVENOUS ONE TIME Rossi Vásquez) Avadhanula - perflutren lipid microspheres 1.1 mg/mL 1.3 mL injection (DEFINITY) 1.3 mL INTRAVENOUS DIRECTED PRN Dalton Chahar - acetaminophen 1,000 mg tab(s) (TYLENOL) 1,000 mg ORAL q 6 H PRN Shirley M Esterle - tamsulosin ER 0.4 mg cap(s) (FLOMAX) 0.4 mg ORAL DAILY Shirley M Esterle 0.4 mg at 01/23/19 0851 - docusate sodium 100 mg cap(s) (COLACE) 100 mg ORAL BID Shirley M Esterle - polyethylene glycol 3350 17 g packet (MIRALAX, GLYCOLAX) 17 g ORAL DAILY Shirley M Esterle 17 g at 01/23/19 0851 - senna 8.6 mg tab(s) (SENOKOT) 8.6 mg ORAL BID PRN Shirley M Esterle - pantoprazole DR 40 mg tab(s) (PROTONIX) 40 mg ORAL DAILY (6 AM) Shirley M Esterle - baclofen 10 mg tab(s) (LIORESAL) 10 mg ORAL TID Shirley M Esterle 10 mg at 01/23/19 0851 - nicotine 14 mg/24 hr 1 Patch (NICODERM) 1 Patch TRANSDERMAL DAILY Shirley M Esterle 1 Patch at 01/23/19 0850 - NaCl 0.9% 3-5 mL 3-5 mL INTRAVENOUS q 12 H Shirley M Esterle 5 mL at 01/23/19 0856 - ipratropium-albuterol 3 mL nebulizer solution (DUONEB) 3 mL INHALATION q 4 H while awake Shirley M Esterle 3 mL at 01/23/19 0744 - ondansetron orally disintegrating 4 mg tab(s) (ZOFRAN ODT) 4 mg ORAL q 6 H PRN Shirley M Esterle Or - ondansetron (PF) 4 mg injection (ZOFRAN) 4 mg INTRAVENOUS q 6 H PRN Shirley M Esterle - methylPREDNISolone sod succinate(PF) 60 mg injection (SOLU-Medrol) 60 mg INTRAVENOUS q 6 H Shirley M Esterle 60 mg at 01/23/19 0600 - nicotine -- REMOVE patch OTHER DAILY Shirley M Esterle And - nicotine - verify patch OTHER q 8 H Shirley M Esterle - fenofibrate 200 mg cap(s) (LOFIBRA) 200 mg ORAL DAILY WITH BREAKFAST Shirley M Esterle 200 mg at 01/23/19 0914 - loratadine 10 mg tab(s) (CLARITIN) 10 mg ORAL DAILY Shirley M Esterle 10 mg at 01/23/19 0851 - oxybutynin XL 5 mg tab(s) (DITROPAN XL) 5 mg ORAL DAILY Shirley M Esterle 5 mg at 01/23/19 0914 - heparin 5,000 Units injection 5,000 Units SUBCUTANEOUS q 12 H Gayatri E ([employer]) Sly 5,000 Units at 01/23/19 0850 - cefTRIAXone 1 g in D5W 100 mL MB+ (ROCEPHIN) 1 g INTRAVENOUS q 24 H Gayatri E ([employer] Attendant) Sly 200 mL/hr at 01/23/19 0848 1 g at 01/23/19 0848 - propofol infusion (DIPRIVAN) 5-60 mcg/kg/min INTRAVENOUS CONTINUOUS Gayatri E ([employer] Att[employer]) Sly - fentaNYL 20 mcg/mL iv infusion in NaCl 0.9% 100 mL 25-250 mcg/hr INTRAVENOUS CONTINUOUS Gayatri E ([employer] Attendant) Sly 10 mL/hr at 01/23/19 0947 200 mcg/hr at 01/23/19 0947 ALLERGIES Allergen Reactions - Dust Other: See Comments sneezing - Mold Spores Itching, Other: See Comments Sneezing PAST MEDICAL HISTORY Diagnosis Date - COPD (chronic obstructive pulmonary disease) (HCC) - Hypothyroidism - Leg weakness, bilateral History reviewed. No pertinent surgical history. Social History Socioeconomic History Marital status: Spouse name: Not on file Number of children: Not on file Years of education: Not on file Highest education level: Not on file Occupational History Not on file Social Needs Financial resource strain: Not on file Food insecurity: Worry: Not on file Inability: Not on file Transportation needs: Medical: Not on file Non-medical: Not on file Tobacco Use Smoking status: Current Every Day Smoker Packs/day: 0.50 Years: 20.00 Pack years: 10 Types: Cigarettes Smokeless tobacco: Never Used Substance and Sexual Activity Alcohol use: Yes Comment: Occasional Drug use: No Sexual activity: Not on file Lifestyle Physical activity: Days per week: Not on file Minutes per session: Not on file Stress: Not on file Relationships Social connections: Talks on phone: Not on file Gets together: Not on file Attends voodoo service: Not on file Active member of club or organization: Not on file Attends meetings of clubs or organizations: Not on file Relationship status: Not on file Intimate partner violence: Fear of current or ex partner: Not on file Emotionally abused: Not on file Physically abused: Not on file Forced sexual activity: Not on file Other Topics Concerns: Not on file Social History Narrative Not on file No family history on file. Review of systems: unable to complete due to intubated status. BP 140/88 Pulse (!) 55 Temp 37.2 ?C (99 ?F) (Axillary) Resp 15 Ht 167.6 cm (5' 6 ) Wt 106.3 kg (234 lb 5.6 oz) SpO2 99% BMI 37.82 kg/m? General appearance: intubated but does not appear to be in distress. Not sedated. He has gross anasarca Skin: Skin color, texture, turgor normal, no suspicious rashes or lesions Head: normocephalic, he has periorbital edema and facial edema Eyes: Anicteric sclera. Pupils are equally round. Ears: not examined Nose/Sinuses: Nares normal. No drainage or sinus tenderness. Oropharynx: Lips, mucosa, and tongue normal, teeth and gums not examined. Neck: Supple Lungs: Breathing unlabored. intubated. Mechanical breath sounds Heart: bradycardia Abdomen: has a tense large abdomen that is distended Extremities: No deformities, +edema Musculoskeletal: Spine range of motion not tested. Neuro: unable to assess. Opens his eyes on command. LAB DATA: Fingerstick glucose readings reviewed. Rossi Farmer MD [facility] Endocrinology and Metabolism [place] [facility] January 23, 2019 11:20 AM Normal [facility] CONSULT HNO ID: [id number] Author: Christina Vásquez) Kori Service: Pulmonary Disease Author Type: Physician Type: Consults Filed: 01/23/2019 11:46 AM Note Text: [facility]IAL CONSULTATION NOTE Patient Name: Jorge Covington REASON FOR CONSULT: intubated and ventilated REQUESTING PHYSICIAN: Shirley Romo ASSESSMENT: Mr. Covington presents with gram negative sepsis (+ Blood cultures) which possibly has triggered a hypothyroid state - rule out myxedema coma. With a high TSH and very low T4, myxedema coma is certainly on the differential. He was never hypothermic, though he has been bradycardic and hypotension. His does give the history of progressive lethargy that would be consistent with myxedema coma. Until coexisting adrenal insufficiency can be excluded, the patient should be given hydrocortisone 100 mg IV q 8 hours x 2 days, then tapered. 1. Sepsis 2/2 gram negative bacteremia - unclear etiology - possibly 2/2 #4 2. Severe hypothyroidism (possible myxedema coma) 2/2 #1 3. Bradycardia 2/2 #2 AND #1 4. Pneumonia (patchy infiltrate on chest xray along with increased oxygen requirements) 5. Slight abdominal guarding- unclear etiology 6. History of smoking and likely COPD- unknown spirometry- not in exacerbation RECOMMENDATIONS: - cortisol level - change steroids to hydrocortisone 100 mg IV q 8 hours x 2 day - continue with mechanical ventilation - low tidal volumes - thyroid replacement recommendations per endocrinology - ideally T4 and T3 replacement - c/w ceftriaxone/azithromyci n (01/22- ) - follow up blood cultures - monitor UOP - f/u urine culture - f/u blood cultures - culture tracheal aspirate - f/u echo - fluid resuscitation - KUB Thank you for the consultation. We will follow the patient along with you. Case discussed in detail with the patient, RN and primary attending. Patient verbalizes understanding and is in agreement with current management plan. [facility] STAFF PHYSICIAN NOTE OF PERSONAL INVOLVEMENT IN CARE This patient has a high probability of sudden, clinically significant deterioration, which requires the highest level of physician preparedness to intervene urgently. I managed/supervised life or organ supporting interventions that required frequent physician assessment. I devoted my full attention to the direct care of this patient for the amount of time indicated below. Time I spent with family or surrogate(s) is included only if the patient was incapable of providing the necessary information or participating in medical decision making. Time devoted to teaching and to any procedures I billed separately is not included. Critical Care Documentation: The patient has the following organ/system impairment(s): Respiratory failure (Acute on Chronic) Time spent providing critical care services: 35 min Christina Sheikh MD CHIEF COMPLAINT: SOB AND weakness HISTORY OF PRESENT ILLNESS: Jorge Covington is a 63 year old male, Ht 167.6 cm (5' 6 ) BMI 37.82 kg/m2, with a PMH significant for hypothyroidism and heavy smoking. Mr. Covington presented to the ED on the evening of 01/22 with confusions, slurred speech and weakness. His weakness has been progressing over the past week per chart review. On arrival to the [facility] ED, his O2 saturation on room air was 88%. He was also found to be hypotensive with a BP of 90/51. ABG on arrival demonstrated 7.28/63.4/82.7 on 2 L of oxygen. In the ED, he was placed on BiPAP / at 50% FiO2 which was then increased to settings of 12/8. Other vital sign abnormalities on admission included bradycardia to 50s. Subsequently, he was found to have worsening hypercarbia after 5 hours on bipap and he was intubated. Other pertinent lab findings include TSH of 92. Imagin01/22/19- Left sided patchy opacity, right sided patchy opacity with blunting of right costophrenic angle, ETT in place Procedures: No spirometry on file Micro: 01/22/19- Gram negative bacilli Labs- 7.37/43/98.8 Na 140 K 4.3 CO2 23 Cr 0.71 TSH 92 Free T4 < 0.1 PAST MEDICAL HISTORY Diagnosis Date - COPD (chronic obstructive pulmonary disease) (HCC) - Hypothyroidism - Leg weakness, bilateral History reviewed. No pertinent surgical history. No family history on file. Social History Tobacco Use - Smoking status: Current Every Day Smoker Packs/day: 0.50 Years: 20.00 Pack years: 10.00 Types: Cigarettes - Smokeless tobacco: Never Used Substance Use Topics - Alcohol use: Yes Comment: Occasional - Drug use: No ALLERGIES: ALLERGIES Allergen Reactions - Dust Other: See Comments sneezing - Mold Spores Itching, Other: See Comments Sneezing CURRENT OUTPATIENT MEDICATIONS: acetaminophen (ARTHRITIS PAIN RELIEF) 650 mg CR tablet Take 650 mg by mouth every 8 hours as needed. baclofen (LIORESAL) 10 mg tablet Take 15 mg by mouth three times daily. diphenhydrAMINE (BENADRYL) 25 mg capsule Take 25 mg by mouth three times daily. albuterol HFA (PROAIR HFA) 90 mcg/actuation inhaler Inhale 2 Puffs as instructed every 4 hours as needed for Wheezing/Shortness of Breath. albuterol (PROVENTIL) 2.5 mg /3 mL (0.083 %) nebulizer solution Use 2.5 mg via nebulizer twice daily. fenofibrate nanocrystallized (TRICOR) 145 mg tablet Take 145 mg by mouth once daily. esomeprazole (NEXIUM) 40 mg capsule Take 40 mg by mouth DAILY (6 AM). tamsulosin ER (FLOMAX) 0.4 mg cap Take 0.4 mg by mouth twice daily. REVIEW OF SYSTEMS: Intubated and sedated- cannot obtain Patient Vitals for the past 24 hrs: BP Temp Temp src Pulse Resp SpO2 Height Weight 01/23/19 1100 ? ? ? (!) 55 15 99 % ? ? 01/23/19 1030 140/88 ? ? (!) 57 13 99 % ? ? 01/23/19 1000 144/77 ? ? 116 18 (!) 77 % ? ? 01/23/19 0930 134/78 ? ? (!) 51 11 96 % ? ? 01/23/19 0900 139/71 ? ? 60 16 91 % ? ? 01/23/19 0830 130/63 ? ? (!) 51 12 (!) 87 % ? ? 01/23/19 0800 120/62 37.2 ?C (99 ?F) Axillary (!) 52 18 94 % ? ? 01/23/19 0744 ? ? ? (!) 51 18 98 % ? ? 01/23/19 0730 132/78 ? ? (!) 52 11 99 % ? ? 01/23/19 0715 119/73 ? ? (!) 45 18 97 % ? ? 01/23/19 0700 120/73 ? ? (!) 46 14 98 % ? ? 01/23/19 0645 117/71 ? ? (!) 45 16 97 % ? ? 01/23/19 0630 108/64 ? ? (!) 47 18 96 % ? ? 01/23/19 0615 108/63 ? ? (!) 48 18 96 % ? ? 01/23/19 0600 135/80 ? ? (!) 52 13 98 % ? ? 01/23/19 0545 ? ? ? (!) 50 14 100 % ? ? 01/23/19 0530 114/55 ? ? (!) 52 15 99 % ? ? 01/23/19 0515 131/82 ? ? (!) 54 18 100 % ? ? 01/23/19 0500 127/78 ? ? (!) 48 16 98 % ? ? 01/23/19 0445 128/85 ? ? (!) 49 19 99 % ? ? 01/23/19 0430 135/81 ? ? (!) 50 17 98 % ? ? 01/23/19 0415 111/76 ? ? (!) 49 18 99 % ? ? 01/23/19 0400 124/66 ? ? (!) 48 10 99 % ? ? 01/23/19 0345 118/59 ? ? (!) 48 11 98 % ? ? 01/23/19 0330 116/55 ? ? (!) 49 11 97 % ? ? 01/23/19 0315 118/61 ? ? (!) 50 15 (!) 84 % ? ? 01/23/19 0300 121/73 ? ? (!) 47 16 93 % ? ? 01/23/19 0245 ? ? ? (!) 47 13 94 % ? ? 01/23/19 0230 ? ? ? (!) 49 22 94 % ? ? 01/23/19 0215 ? ? ? (!) 50 16 92 % ? ? 01/23/19 0200 ? ? ? (!) 51 16 (!) 85 % ? ? 01/23/19 0145 110/74 ? ? (!) 50 12 89 % ? ? 01/23/19 0130 126/64 ? ? (!) 49 14 96 % ? ? 01/23/19 0115 119/76 ? ? (!) 49 14 97 % ? ? 01/23/19 0104 ? ? ? (!) 38 14 96 % ? ? 01/23/19 0103 ? ? ? (!) 40 14 95 % ? ? 01/23/19 0100 85/56 ? ? (!) 43 14 95 % ? ? 01/23/19 0055 ? ? ? (!) 46 14 95 % ? ? 01/23/19 0050 ? ? ? (!) 41 14 95 % ? ? 01/23/19 0045 85/56 ? ? (!) 40 14 95 % ? ? 01/23/19 0030 82/53 ? ? (!) 41 14 96 % ? ? 01/23/19 0015 101/66 ? ? (!) 49 14 95 % ? ? 01/23/19 0000 89/56 ? ? (!) 52 18 95 % ? ? 01/22/19 2345 88/51 ? ? 60 20 92 % ? ? 01/22/19 2332 (!) 74/43 ? 01/22/19 2330 ? ? ? (!) 53 7 99 % ? ? 01/22/19 2325 (!) 79/50 ? ? (!) 52 19 95 % ? ? 01/22/19 2315 ? ? ? (!) 51 17 97 % ? ? 01/22/19 2304 ? 36.5 ?C (97.7 ?F) Temporal ? 01/22/19 2300 91/56 ? ? (!) 59 26 98 % ? ? 01/22/190 100/59 ? ? (!) 53 14 94 % ? ? 01/22/192214 ? ? ? (!) 43 16 96 % ? ? 01/22/192199 87/56 ? ? (!) 46 14 98 % ? ? 01/22/192155 ? ? ? (!) 51 14 ? ? ? 01/22/192145 ? ? ? (!) 50 16 97 % ? ? 01/22/192144 93/60 ? ? (!) 54 16 96 % ? ? 01/22/192129 92/58 ? ? (!) 45 16 94 % ? ? 01/22/192114 ? ? ? (!) 46 15 97 % ? ? 01/22/192099 ? ? ? (!) 46 15 93 % ? ? 01/22/192044 ? ? ? (!) 52 18 97 % ? ? 01/22/192029 ? ? ? (!) 47 14 97 % ? ? 01/22/192014 101/63 ? ? (!) 50 16 98 % ? ? 01/22/191999 107/73 ? ? (!) 51 17 97 % ? ? 01/22/191944 (!) 75/55 ? ? (!) 43 13 95 % ? ? 01/22/191930 ? 36.8 ?C (98.2 ?F) Temporal ? 01/22/191929 102/62 ? ? (!) 50 17 97 % ? ? 01/22/191924 98/55 ? ? (!) 51 16 95 % ? ? 01/22/19 190 86/50 ? ? (!) 55 20 95 % ? ? 01/22/191856 ? ? ? (!) 53 17 95 % ? ? 01/22/191854 ? ? ? (!) 54 18 94 % ? ? 01/22/191849 ? ? ? (!) 53 17 93 % ? ? 01/22/191844 92/58 ? ? 60 18 92 % ? ? 01/22/19 1840 ? ? ? (!) 46 15 93 % ? ? 01/22/195 ? ? ? (!) 48 16 95 % ? ? 01/22/19 1830 ? ? ? 61 16 (!) 86 % ? ? 01/22/19 1820 ? ? ? (!) 54 17 92 % ? ? 01/22/19 1815 ? ? ? (!) 53 17 92 % ? ? 01/22/19 1810 ? ? ? (!) 54 21 90 % ? ? 01/22/19 1800 93/54 ? ? (!) 55 23 (!) 87 % 167.6 cm (5' 6 ) 106.3 kg (234 lb 5.6 oz) 01/22/19 1755 ? ? ? (!) 54 21 91 % ? ? 01/22/19 1741 ? 21 ? ? ? 01/22/19 1700 117/69 ? ? 55 (!) 37 100 % ? ? 01/22/19 1646 117/59 ? ? (!) 52 (!) 30 99 % ? ? 01/22/19 1537 108/67 ? ? 58 (!) 32 99 % ? ? 01/22/19 1437 106/61 ? ? (!) 54 19 (!) 89 % ? ? 01/22/19 1328 98/57 ? ? 59 20 100 % ? ? 01/22/19 1308 ? ? ? (!) 53 23 100 % ? ? 01/22/19 1257 ? ? ? 56 22 ? ? ? 01/22/19 1245 ? ? ? 55 20 98 % ? ? 01/22/19 1211 90/51 ? ? 59 20 (!) 88 % ? 107 kg (236 lb) Intake/Output Summary (Last 24 hours) at 01/23/2019 1117 Last data filed at 01/23/2019 1000 Gross per 24 hour Intake 1450 ml Output 1330 ml Net 120 ml PHYSICAL EXAMINATION: VITAL SIGNS: BP 140/88 Pulse 55 Temp (Src) 99 (Axillary) Resp 15 Ht 5' 6 (1.68m) Wt 234 lb 5.6 oz (106.3kg) SpO2 99% BMI 37.84 kg/(m2). O2 Therapy: Ventilator, %FIO2: 60 General appearance: critically ill appearing Skin: skin color, texture, turgor normal, no rashes or lesions Eyes: Anicteric sclera. Pupils are equally round and reactive to light. ENT:: No oral or nasal erythema, bleeding, lesions, striae Heme/Lymph:: Supple, no adenopathy; thyroid symmetric, normal size, no bruits Lungs: lungs clear to auscultation no wheezing or rhonchi Heart: bradycardic - RRR without murmur GI: slight guarding on exam Musculoskeletal:: No deformities, edema, skin discoloration. Good capillary refill. Neuro: Oriented X 3 DATA: Diagnostic tests reviewed for today's visit, films/specimens were personally reviewed by me: Most recent labs LAB RESULTS: CBC, Coags, BMP, Mg, Phos Recent Labs 01/23/19 0309 01/23/19 0202 01/22/19 122 WBC -- 6.32 5.42 HB -- 12.9* 13.8 HCT -- 41.0 44.0 PLT -- 388 389 NA 140 133* 140 K 4.3 Unable to assay. Specimen hemolyzed. 3.6* CHLOR 105 102 103 CO2 23 22 29 BUN 8* 9 10 CREAT 0.71* 0.39* 0.90 GLUC 188* 165* 87 CA 8.7 8.8 9.9 MG -- 1.8 -- P -- 3.1 -- Liver Function, Amylase, AND Lipase Recent Labs 01/23/19 0535 01/23/19 0110 01/22/19224901/22/19 122 TPROT -- -- -- -- 7.8 ALB -- -- -- -- 4.1 ALT -- -- -- -- 23 AST -- -- -- -- 53* ALKPHOS -- -- -- -- 80 TBILI -- -- -- -- 0.2 LACT 1.1 0.9 0.4* < > -- < > = values in this interval not displayed. Cardiac Enzymes ABGs Recent Labs 01/23/19 0535 01/23/19 0110 01/22/192249 PH 7.374 7.294* 7.226* PCO2 43.0 51.8* 67.5* PO2 98.8* 81.7* 115* BE -0.3 -2.2 -1.7 HCO3 24.5 24.3 27.0* O2HB 95.1 92.6* 94.5* COHB 1.3 1.6 1.7 MHGB 1.2 1.2 1.2 Christina Sheikh MD Staff, Respiratory [facility] Pager #[phone] Normal [facility] Cortisolon 01-23-2019 Cortisol 26.3 ug/dL Normal [facility] Comment on above: Result Comment: Carlo isol Reference Range: AM = 5.3-22.5, PM = 3.4-16.8 Performed By: #### N TBNP #### [facility] [address] [facility] [phone] Free T3on 01-23-2019 Free T3 [Mass/Vol] pg/mL Low 2.3-4.1 [facility] Comment on above: Performed By: #### F REET3 ####[facility] [place], [place] [phone] Free T4on 01-23-2019 Free T4 [Mass/Vol] ng/dL Low 0.9-1.7 [facility] Comment on above: Performed By: #### F T4 ####[address] [phone] HISTORY PHYSICALon 9 HISTORY PHYSICAL HNO ID: [id number] Author: Shirley Romo Service: ? Author Type: Physician Type: HANDP Filed: 01/23/2019 8:27 AM Note Text: INTERNAL MEDICINE HANDP EXAMINATION SERVICE DATE: 01/23/2019 SERVICE TIME: 8:20 AM PRIMARY CARE PHYSICIAN: Nathanael Cardona MD Subjective CHIEF COMPLAINT: Altered mental status and hypoxia HISTORY OF PRESENT ILLNESS: Mr. Covington is a 63 year old male who presents with altered mental status, copd, hypothyroidism apparently on no meds at home. He also has had A 30 lb weight gain in the past few months. states that he has been confused and having slurred speech. His abg in the ER showed him to be hypercapneic and he was Placed on bipap initially and then once in the icu had to be intubated after failing the bipap. He has no known history of sleep apnea. His tsh was very high in there ER over 90 and he appears to be in decompensated hypothyroidism with myxedema/coma. Endo was consulted as well as pulmonary. He also has a uti and was started on rocephin. He is currently sedated on the ventilator. PAST MEDICAL HISTORY Diagnosis Date - COPD (chronic obstructive pulmonary disease) (HCC) - Hypothyroidism - Leg weakness, bilateral History reviewed. No pertinent surgical history. No family history on file. Social History Tobacco Use - Smoking status: Current Every Day Smoker Packs/day: 0.50 Years: 20.00 Pack years: 10.00 Types: Cigarettes - Smokeless tobacco: Never Used Substance Use Topics - Alcohol use: Yes Comment: Occasional - Drug use: No MEDICATIONS: Medications Prior to Admission: acetaminophen (ARTHRITIS PAIN RELIEF) 650 mg CR tablet Take 650 mg by mouth every 8 hours as needed. Disp: Rfl: Unknown at Unknown time baclofen (LIORESAL) 10 mg tablet Take 15 mg by mouth three times daily. Disp: Rfl: Unknown at Unknown time diphenhydrAMINE (BENADRYL) 25 mg capsule Take 25 mg by mouth three times daily. Disp: Rfl: Unknown at Unknown time albuterol HFA (PROAIR HFA) 90 mcg/actuation inhaler Inhale 2 Puffs as instructed every 4 hours as needed for Wheezing/Shortness of Breath. Disp: Rfl: Unknown at Unknown time albuterol (PROVENTIL) 2.5 mg /3 mL (0.083 %) nebulizer solution Use 2.5 mg via nebulizer twice daily. Disp: Rfl: Unknown at Unknown time fenofibrate nanocrystallized (TRICOR) 145 mg tablet Take 145 mg by mouth once daily. Disp: Rfl: Unknown at Unknown time esomeprazole (NEXIUM) 40 mg capsule Take 40 mg by mouth DAILY (6 AM). Disp: Rfl: Unknown at Unknown time tamsulosin ER (FLOMAX) 0.4 mg cap Take 0.4 mg by mouth twice daily. Disp: Rfl: Unknown at Unknown time ALLERGIES Allergen Reactions - Dust Other: See Comments sneezing - Mold Spores Itching, Other: See Comments Sneezing COMPLETE REVIEW OF SYSTEMS: Unable to obtain as patient in on the vent Objective PHYSICAL EXAM: Patient Vitals for the past 24 hrs: BP Temp Temp src Pulse Resp SpO2 Height Weight 01/23/19 0715 119/73 ? ? (!) 45 18 97 % ? ? 01/23/19 0700 120/73 ? ? (!) 46 14 98 % ? ? 01/23/19 0645 117/71 ? ? (!) 45 16 97 % ? ? 01/23/19 0630 108/64 ? ? (!) 47 18 96 % ? ? 01/23/19 0615 108/63 ? ? (!) 48 18 96 % ? ? 01/23/19 0600 135/80 ? ? (!) 52 13 98 % ? ? 01/23/19 0545 ? ? ? (!) 50 14 100 % ? ? 01/23/19 0530 114/55 ? ? (!) 52 15 99 % ? ? 01/23/19 0515 131/82 ? ? (!) 54 18 100 % ? ? 01/23/19 0500 127/78 ? ? (!) 48 16 98 % ? ? 01/23/19 0445 128/85 ? ? (!) 49 19 99 % ? ? 01/23/19 0430 135/81 ? ? (!) 50 17 98 % ? ? 01/23/19 0415 111/76 ? ? (!) 49 18 99 % ? ? 01/23/19 0400 124/66 ? ? (!) 48 10 99 % ? ? 01/23/19 0345 118/59 ? ? (!) 48 11 98 % ? ? 01/23/19 0330 116/55 ? ? (!) 49 11 97 % ? ? 01/23/19 0315 118/61 ? ? (!) 50 15 (!) 84 % ? ? 01/23/19 0300 121/73 ? ? (!) 47 16 93 % ? ? 01/23/19 0245 ? ? ? (!) 47 13 94 % ? ? 01/23/19 0230 ? ? ? (!) 49 22 94 % ? ? 01/23/19 0215 ? ? ? (!) 50 16 92 % ? ? 01/23/19 0200 ? ? ? (!) 51 16 (!) 85 % ? ? 01/23/19 0145 110/74 ? ? (!) 50 12 89 % ? ? 01/23/19 0130 126/64 ? ? (!) 49 14 96 % ? ? 01/23/19 0115 119/76 ? ? (!) 49 14 97 % ? ? 01/23/19 0104 ? ? ? (!) 38 14 96 % ? ? 01/23/19 0103 ? ? ? (!) 40 14 95 % ? ? 01/23/19 0100 85/56 ? ? (!) 43 14 95 % ? ? 01/23/19 0055 ? ? ? (!) 46 14 95 % ? ? 01/23/19 0050 ? ? ? (!) 41 14 95 % ? ? 01/23/19 0045 85/56 ? ? (!) 40 14 95 % ? ? 01/23/19 0030 82/53 ? ? (!) 41 14 96 % ? ? 01/23/19 0015 101/66 ? ? (!) 49 14 95 % ? ? 01/23/19 0000 89/56 ? ? (!) 52 18 95 % ? ? 01/22/19 2345 88/51 ? ? 60 20 92 % ? ? 01/22/19 2332 (!) 74/43 ? 01/22/19 2330 ? ? ? (!) 53 7 99 % ? ? 01/22/19 2325 (!) 79/50 ? ? (!) 52 19 95 % ? ? 01/22/19 2315 ? ? ? (!) 51 17 97 % ? ? 01/22/19 2304 ? 36.5 ?C (97.7 ?F) Temporal ? 01/22/19 2300 91/56 ? ? (!) 59 26 98 % ? ? 01/22/19 2230 100/59 ? ? (!) 53 14 94 % ? ? 01/22/192214 ? ? ? (!) 43 16 96 % ? ? 01/22/19 2200 87/56 ? ? (!) 46 14 98 % ? ? 01/22/192155 ? ? ? (!) 51 14 ? ? ? 01/22/192145 ? ? ? (!) 50 16 97 % ? ? 01/22/192144 93/60 ? ? (!) 54 16 96 % ? ? 01/22/192129 92/58 ? ? (!) 45 16 94 % ? ? 01/22/192114 ? ? ? (!) 46 15 97 % ? ? 01/22/19 2100 ? ? ? (!) 46 15 93 % ? ? 01/22/192044 ? ? ? (!) 52 18 97 % ? ? 01/22/19 2030 ? ? ? (!) 47 14 97 % ? ? 01/22/192014 101/63 ? ? (!) 50 16 98 % ? ? 01/22/191999 107/73 ? ? (!) 51 17 97 % ? ? 01/22/19 194 (!) 75/55 ? ? (!) 43 13 95 % ? ? 01/22/191930 ? 36.8 ?C (98.2 ?F) Temporal ? 01/22/191929 102/62 ? ? (!) 50 17 97 % ? ? 01/22/191924 98/55 ? ? (!) 51 16 95 % ? ? 01/22/191899 86/50 ? ? (!) 55 20 95 % ? ? 01/22/191856 ? ? ? (!) 53 17 95 % ? ? 01/22/191854 ? ? ? (!) 54 18 94 % ? ? 01/22/191849 ? ? ? (!) 53 17 93 % ? ? 01/22/191844 92/58 ? ? 60 18 92 % ? ? 01/22/191839 ? ? ? (!) 46 15 93 % ? ? 01/22/19 183 ? ? ? (!) 48 16 95 % ? ? 01/22/19 183 ? ? ? 61 16 (!) 86 % ? ? 01/22/191819 ? ? ? (!) 54 17 92 % ? ? 01/22/191814 ? ? ? (!) 53 17 92 % ? ? 01/22/191809 ? ? ? (!) 54 21 90 % ? ? 01/22/19 1800 93/54 ? ? (!) 55 23 (!) 87 % 167.6 cm (5' 6 ) 106.3 kg (234 lb 5.6 oz) 01/22/19 1755 ? ? ? (!) 54 21 91 % ? ? 01/22/19 1741 ? 21 ? ? ? 01/22/19 1700 117/69 ? ? 55 (!) 37 100 % ? ? 01/22/19 1646 117/59 ? ? (!) 52 (!) 30 99 % ? ? 01/22/19 1537 108/67 ? ? 58 (!) 32 99 % ? ? 01/22/19 1437 106/61 ? ? (!) 54 19 (!) 89 % ? ? 01/22/19 1328 98/57 ? ? 59 20 100 % ? ? 01/22/19 1308 ? ? ? (!) 53 23 100 % ? ? 01/22/19 1257 ? ? ? 56 22 ? ? ? 01/22/19 1245 ? ? ? 55 20 98 % ? ? 01/22/19 1211 90/51 ? ? 59 20 (!) 88 % ? 107 kg (236 lb) Body mass index is 37.82 kg/m?. GENERAL:, sedated on the vent SKIN: Skin color, texture, turgor normal. No rashes or lesions. OROPHARYNX: Lips, mucosa, and tongue are normal.Teeth and gums, normal. Oropharynx normal. NECK: No jugulovenous distention, No carotid bruits, Carotid pulse normal contour, Supple LUNGS: diminished throughout CARDIAC: Normal S1 and S2; no rubs, murmurs, or gallops ABDOMEN: distended soft non tender EXTREMETIES: Extremities normal, no deformities, edema, clubbing or skin discoloration. Good capillary refill., No ulcers NEURO: sedated on the vent PULSES: 2+ radial, 2+ carotid DATA: Diagnostic tests reviewed for today's visit: Most recent labs and imaging results. Assessment/Plan Acute respiratory failure currently vent dependent Copd Decompensated hypothryoidism with myxedema hypercapnea Suspect adolfo/ohs uti culture pending on rocephin Plan Consult pulm, icu and endo Continue with current poc Medication and Non-Pharmacologic VTE Prophylaxis/Anticoagula nts Anticoagulant AND Antiplatelet Medications (From admission, onward) Start Dose Route Frequency Ordered Stop 01/22/192229 heparin 5,000 Units injection (Medical Risk Categories) 5,000 Units SUBCUTANEOUS EVERY 12 HOURS 01/22/192228 -- 01/22/192229 pneumatic compression stockings (sc,oh) 01/22/191814 vte non-pharmacologic prophylaxis - none indicated (sc,oh) 01/22/191814 activity - mobilize patient (sc,va) VTE Prophylaxis: VTE prophylaxis appropriate SIGNATURE: Shirley Romo DO PATIENT NAME: Jorge Covington DATE: January 23, 2019 TIME: 8:20 AM PAGER/CONTACT #: [phone] Normal [facility] Legionella Urine Agon 2018 Legionella Urine Ag Negative Normal Negative [facility] Comment on above: Performed By: #### L EGUAG ####[facility] [address] Magnesiumon 01-23-2019 Magnesium [Mass/Vol] 1.8 mg/dL Normal 1.7-2.3 [facility] Comment on above: Performed By: #### C BC, BMP, MG1, PHOS ####[facility] [address] [place] [address] NURSING PROGon 01-23-2019 NURSING PROG HNO ID: [id number] Author: Alessandra De La RosaRn) VIKTOR Norton Service: Nursing Author Type: Registered Nurse Type: Nursing Progress Note Filed: 01/23/2019 12:56 PM Note Text: Nursing Progress: Topic: RESTRAINT NON-VIOLENT PATIENT NAME: Jorge Covington PATIENT LOCATION: [facility]2329/[id number] The patient demonstrates Attempting to Remove Medical Devices Vital to Medical Stability, Lack of Understanding/Ability to Comply with Safety Directions, Inability to be Redirected, Inability to Retain Information Regarding Safety Directions as evidenced by the following behaviors reaching for the ET tube and IV lines which pose an imminent danger to self or others. The following interventions were attempted but were not effective in protecting the patient's safety: Alarms, Call Light Within Reach, Contraindicated - Imminent Safety Risk Next, a comprehensive assessment was performed and warranted placing the patient in Soft Bilateral Wrists, the least restrictive restraint needed to protect the patient's safety. Ongoing safety assessments and evaluation for earliest removal of restraints will be performed. DATE: January 23, 2019 TIME: 12:55 PM Alessandra Norton RN Normal [facility] NURSING PROG HNO ID: [id number] Author: Britta De La RosaRnDemi Dorado RN Service: Nursing Author Type: Registered Nurse Type: Nursing Progress Note Filed: 01/23/2019 12:27 AM Note Text: Nursing Progress: Topic: RESTRAINT NON-VIOLENT PATIENT NAME: Jorge Covington PATIENT LOCATION: [facility]2329/[id number] The patient demonstrates as evidenced by the following behaviors pulling ET tube which pose an imminent danger to self or others. The following interventions were attempted but were not effective in protecting the patient's safety: Next, a comprehensive assessment was performed and warranted placing the patient in , the least restrictive restraint needed to protect the patient's safety. Ongoing safety assessments and evaluation for earliest removal of restraints will be performed. DATE: January 23, 2019 TIME: 12:26 AM Britta Dorado RN Nursing Progress: Topic: RESTRAINT NON-VIOLENT PATIENT NAME: Jorge Covington PATIENT LOCATION: [place] [address] [address] The patient demonstrates as evidenced by the following behaviors pulling at ET tube which pose an imminent danger to self or others. The following interventions were attempted but were not effective in protecting the patient's safety: Next, a comprehensive assessment was performed and warranted placing the patient in , the least restrictive restraint needed to protect the patient's safety. Ongoing safety assessments and evaluation for earliest removal of restraints will be performed. DATE: January 23, 2019 TIME: 12:27 AM Britta Dorado RN [facility] NURSING PROG HNO ID: [id number] Author: Rosalinda De La RosaRn) VIKTOR Narayan Service: ? Author Type: Registered Nurse Type: Nursing Progress Note Filed: 01/22/2019 11:44 PM Note Text: Pt being prepared for intubation. RT, RNs, ANIME ARTIST Braxton Armas at bedside. Time out performed. PT assessed. 100% fio2 administered via bag valve mask [id number] assisting via remote access camera and verifying that consent obtained. Consent confirmed as obtained by patient 8-2 versed IV given, 50mg Rocuronium IV given 2329-200mg Propofol given 2330-pt becoming hypotensive 70's/50's 2321-neosynephrine 100mcg IV given 2332-neosynephrine 100mcg IV given 2333 #8 ETT placed 21 lip via glidescope. tueb secured. Positive co2 color change. bilat breath sounds auscultated. Pt placed on AC 18 TV500 fio2 60% peep 10 while awaiting vent setting orders. E-hospital notified for needed orders OGT place 2336-pt remains hypotensive neosynephrine 200mcg IV given [id number] contacted again for orders 2343-CXR done. BP improving 90's/50's [facility] PROGRESSon 01-23-2019 PROGRESS HNO ID: [id number] Author: Dalton Chambers Service: Critical Care Author Type: Anesthesiologist Type: Progress Notes Filed: 01/23/2019 12:06 PM Note Text: SERVICE DATE: 01/23/2019 SERVICE TIME: 12:02 PM ICU HANDP NOTE HPI: 63 y.o. M with PMH of COPD, Hypothyroidism, presenting with progressive generalized fatigue, lower extremity weakness, slurred speech and a 30 lb weight gain since July 2018. Patient was noted to be in hypoxemic and hypercapnic respiratory failure in the ER and started on BIPAP. Patient was also noted to be bradycardic and hypotensive. He was subsequently intubated after he failed BiPAP. TSH level at admission was elevated at 92.24. Blood cultures grew GNB - On Ceftriaxone Subjective PAST MEDICAL HISTORY Diagnosis Date - COPD (chronic obstructive pulmonary disease) (HCC) - Hypothyroidism - Leg weakness, bilateral History reviewed. No pertinent surgical history. No family history on file. Social History Occupational History Not on file Tobacco Use Smoking status: Current Every Day Smoker Packs/day: 0.50 Years: 20.00 Pack years: 10 Types: Cigarettes Smokeless tobacco: Never Used Substance and Sexual Activity Alcohol use: Yes Comment: Occasional Drug use: No Sexual activity: Not on file ALLERGIES Allergen Reactions - Dust Other: See Comments sneezing - Mold Spores Itching, Other: See Comments Sneezing PRIOR TO ADMISSION MEDICATIONS: Medications Prior to Admission: acetaminophen (ARTHRITIS PAIN RELIEF) 650 mg CR tablet Take 650 mg by mouth every 8 hours as needed. Disp: Rfl: Unknown at Unknown time baclofen (LIORESAL) 10 mg tablet Take 15 mg by mouth three times daily. Disp: Rfl: Unknown at Unknown time diphenhydrAMINE (BENADRYL) 25 mg capsule Take 25 mg by mouth three times daily. Disp: Rfl: Unknown at Unknown time albuterol HFA (PROAIR HFA) 90 mcg/actuation inhaler Inhale 2 Puffs as instructed every 4 hours as needed for Wheezing/Shortness of Breath. Disp: Rfl: Unknown at Unknown time albuterol (PROVENTIL) 2.5 mg /3 mL (0.083 %) nebulizer solution Use 2.5 mg via nebulizer twice daily. Disp: Rfl: Unknown at Unknown time fenofibrate nanocrystallized (TRICOR) 145 mg tablet Take 145 mg by mouth once daily. Disp: Rfl: Unknown at Unknown time esomeprazole (NEXIUM) 40 mg capsule Take 40 mg by mouth DAILY (6 AM). Disp: Rfl: Unknown at Unknown time tamsulosin ER (FLOMAX) 0.4 mg cap Take 0.4 mg by mouth twice daily. Disp: Rfl: Unknown at Unknown time REVIEW OF SYSTEMS: Patient intubated Objective Admission Weight: Weight: 107 kg (236 lb) VITAL SIGNS BP 140/88 Pulse 55 Temp (Src) 99 (Axillary) Resp 15 Ht 5' 6 (1.68m) Wt 234 lb 5.6 oz (106.3kg) SpO2 99% BMI 37.84 kg/(m2). O2 Therapy: Ventilator, %FIO2: 60 NORepinephrine DOPamine Last Rate: Stopped (01/23/19 032) propofol infusion fentaNYL Last Rate: 200 mcg/hr (01/23/19 1837) RESPIRATORY Mechanical Ventilation: Yes, on mechanical ventilation PHYSICAL EXAM Neuro: Awake and Follows commands Pulmonary: Breath Sounds Equal: No. Reduced bilateral Cardiovascular: Regular rhythm Abdomen: Soft and Nontender Extremities: Edema- Yes Peripheral pulses- Present all extremities Wounds/Drsgs- N/A DATA: Diagnostic tests reviewed for today's visit: Most recent labs and imaging results. Most recent labs Most recent imaging Most recent EKG ICU Checklist Last Documented/Reviewed time: 01/23/2019 10:57 AM ------ - ICU Delirium Status: CAM Negative - no action required Restraint Status: Present, will maintain Restraint Maintain Reason: Maintain safety of patient ICU Mobility-Pt Has Been Out of Bed: No - Specify Line Status: None Ventilator: Present Head of Bed > 30 degrees?: Yes Mouth Care?: Yes Spontaneous Awakening?: Yes Spontaneous Breathing?: Yes Ready for Extubation?: No - specify Benson Status: Present, will maintain Benson Status Details: Accurate measurement of urine output GI/Stress Ulcer Prophylaxis: H2 blockers Nutrition is at Goal: NPO VTE Prophylaxis: Chemoprophylaxis: Heparin SQ Mechanical Prophylaxis: Thigh high SCD Pressure Injury Status: None ICU Plan Reviewed with RN: Yes ICU Family Update in Last 24 Hours: Patient updated, Family updated ICU Disposition- Is Patient Clinically Ready to Transfer to [facility] or SDU?: No Discharge Planning: To be determined ASSESSMENT AND PLAN Neurology Myxedema coma (HCC) Assessment: H/O Hypothyroidism On Po Levothyroxine stopped taking as ran out of prescriptons PLAN: Endocrinology on board IV Levothyroxine Pulmonary Acute respiratory failure (HCC) Assessment: Intubated overnight PLAN: Lung protective ventilation, Wean as tolerated Infectious Disease Septicemia ([facility]) Assessment: Growing GNB in blood on Ceftriaxone, UA dirty, Urine Culture in progress, past h/o UTI with Proteus which was sensitive to Ceftriaxone PLAN: Continue Ceftriaxone DC Azithromycin Medication and Non-Pharmacologic VTE Prophylaxis/Anticoagula nts Anticoagulant AND Antiplatelet Medications (From admission, onward) Start Dose Route Frequency Ordered Stop 01/22/19 2230 heparin 5,000 Units injection (Medical Risk Categories) 5,000 Units SUBCUTANEOUS EVERY 12 HOURS 01/22/19 2229 -- 01/22/19 2230 pneumatic compression stockings (sc,oh) 01/22/19 181 vte non-pharmacologic prophylaxis - none indicated (sc,oh) 01/22/191814 activity - mobilize patient (sc,va) VTE Prophylaxis: VTE prophylaxis appropriate Plan of care discussed with: Family/Significant Other: and RN SIGNATURE: Dalton Chambers MD PATIENT NAME: Jorge Covington DATE: January 23, 2019 TIME: 12:02 PM PAGER/CONTACT #: [phone] ICU STAFF Note of Personal Involvement in Care This patient has a high probability of sudden, clinically significant deterioration, which requires the highest level of physician preparedness to intervene urgently. I managed/ supervised life or organ supporting interventions that required frequent physician assessment. I devoted my full attention to the direct care of this patient, including physical examination, verifying findings, reviewing labs and imaging, discussing with primary physician and consultants, and developing a plan of care with the bedside nurse for the amount of time indicated below. Critical Care Documentation: The patient has the following organ/system impairment(s): Pulmonary Time spent providing critical care services: 40 minutes. The time excludes any associated procedures which will be documented and billed separately. [facility] PROGRESS HNO ID: [id number] Author: Horace Jose Rai Service: Critical Care Author Type: Physician Type: Progress Notes Filed: 01/23/2019 1:39 AM Note Text: Plan of Care: This patient's admission data were reviewed remotely based on the ED physician note and bedside ICU team and the clinical monitoring data available via the eICU system. 63 year old male, current smoker with PMH of COPD, Hypothyroidism, presenting with progressive generalized fatigue, lower extremity weakness, slurred speech and a 30 lb weight gain since July 2018. Patient was noted to be in hypoxemic and hypercapnic respiratory failure in the ER and started on BIPAP. Patient was also noted to be bradycardic and hypotensive. He was subsequently intubated after he failed BiPAP. TSH level at admission was elevated at 92.24. Patient's home medication list does not have Levothyroxine listed. NT pro-BNP is unremarkable at 32. UA suggestive of UTI. Patient's clinical picture is consistent with decompensated hypothyroidism/ spectrum of myxedema coma. Plan is to mechanically ventilate with low TV and open lung strategy. IV fluid resuscitation. Insert benson catheter for strict I/O. Blood cultures. Empiric antibiotics. IV Steroids. Nebulized Bronchodilators. Serial ABGs with lactic acid. Check serum free T4 and T3 levels. Vasopressors if indicated to maintain MAP of 65. Endocrinology and Pulmonary Medicine consults. Start IV Levothyroxine and follow. Horace Jose Rai, MD, [facility] E-ICU Staff, Pulmonary and Critical Care Medicine [facility] [place] Pager #[phone] [facility] PROGRESS HNO ID: [id number] Author: Gayatri Heart Service: eHospital Author Type: Nurse Practitioner Type: Progress Notes Filed: 01/23/2019 12:53 AM Note Text: eHospital Provider Note Call Initiation By: eHospital Primary Reason for Call: Low urine output;Cardiac / Hemodynamic status Objective Data:: BP soft, 85/56(66), UO 15/20 last 2 hours, remains bradycardic in low to mid 40s. Remote camera observation(s):: Remains intubated, sedated Assessment: hypotensive, poor UO SIGNATURE: Gayatri Heart APRN.LUPE PATIENT NAME: Jorge Covington DATE: January 23 2019 TIME: 12:50 AM [facility] PROGRESS HNO ID: [id number] Author: Gayatri Heart Service: eHospital Author Type: Nurse Practitioner Type: Progress Notes Filed: 01/23/2019 12:55 AM Note Text: eHospital Provider Note Call Initiation By: eHospital Primary Reason for Call: Low urine output;Cardiac / Hemodynamic status Objective Data:: BP soft, 85/56(66), UO 15/20 last 2 hours, remains bradycardic in low to mid 40s. Remote camera observation(s):: Remains intubated, sedated Assessment: hypotensive, poor UO Plan/Intervention (other): Start levo for BP and poss HR improvement. 500 IV fluid challenge /DOUG Collaboration: Plan of care discussed with [employer] Tender SIGNATURE: Gayatri Heart APRN.CNP PATIENT NAME: Jorge Covington DATE: January 23 2019 TIME: 12:50 AM [facility] PROGRESS HNO ID: [id number] Author: Gayatri Heart Service: eHospital Author Type: Nurse Practitioner Type: Progress Notes Filed: 01/22/2019 11:38 PM Note Text: eHospital Provider Note Call Initiation By: eHospital Primary Reason for Call: Admission to ICU Objective Data:: PT admitted through Ed today with known hx of hypothyroid, LE weakness (progressively worse for last weeks), COPD, current smoker. Reportedly no home O2, no nocturnal CPAP. In the Ed he presented with SaO2 88% on room air, diffuse rhonchi and slurred speech. He was started on BiPAP with mild improvement in oxygenation. He was started on azithro and ceftriaxone, given IV fluids. ABG showed hypercarbic acidosis. No neuro deficits noted, [place] stroke scale negative. In the ICU he remained on BiPAP, recheck ABGs showing worsening hypercarbia after 5+ hours of BiPAP. Decision made to intubate. Noted that TSH in ED 92, pt on oral synthroid at home and now in ICU. Assessment: COPD exacerbation vs. hypothyroid Intervention(s): Review admission plan of care;Initiation of mechanical ventilation;Oxygen therapy;Electrolyte replacement;IV fluids;Addition or alteration of vasopressors;Airway management;Laboratory tests;Radiology / Imaging;Sedation;Diuret ic therapy;ABG;Chest x-ray Plan/Intervention (other): Intubation. Endocrine consult /DOUG Collaboration: Plan of care discussed with [facility] Chemical Machine Tender SIGNATURE: Gayatri Heart APRN.CNP PATIENT NAME: Jorge Covington DATE: January 22 2019 TIME: 11:26 PM Normal [facility] Phosphoruson 01-23-2019 Phosphate [Mass/Vol] 3.1 mg/dL Normal 2.7-4.8 [facility] Comment on above: Performed By: #### C BC, BMP, MG1, PHOS ####[facility] [address] [place] [address] Staph aureus PCRon 9 MRSA PCR Negative [facility] Comment on above: Performed By: #### C BCDIF, CMP #### [facility] Laboratory [address] [place] [address] S aureus Spec Source Nasal [facility] Comment on above: Performed By: #### C BCDIF, CMP #### [facility] [address] [place] [address] Staph aureus PCR Negative [facility] Comment on above: Performed By: #### C BCDIF, CMP #### [facility] [address] [place] [address] MRSA PCR Negative [facility] Comment on above: Performed By: #### S APCR ####[facility] [address] [place] [address] [place] [phone] S aureus Spec Source Nasal [facility] Comment on above: Performed By: #### S APCR ####[facility] [address] [place] [address] [place] [address] Staph aureus PCR Negative [facility] Comment on above: Performed By: #### S APCR ####[facility] [address] [place] [address] [place] [phone] THERAPY NTon 01-23-2019 THERAPY NT HNO ID: [id number] Author: Shyanne De La RosaPt) Jerrod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 Pulse Resp SpO2 Height Weight 01/23/19 0715 119/73 ? ? (!) 45 18 97 % ? ? 01/23/19 0700 120/73 ? ? (!) 46 14 98 % ? ? 01/23/19 0645 117/71 ? ? (!) 45 16 97 % ? ? 01/23/19 0630 108/64 ? ? (!) 47 18 96 % ? ? 01/23/19 0615 108/63 ? ? (!) 48 18 96 % ? ? 01/23/19 0600 135/80 ? ? (!) 52 13 98 % ? ? 01/23/19 0545 ? ? ? (!) 50 14 100 % ? ? 01/23/19 0530 114/55 ? ? (!) 52 15 99 % ? ? 01/23/19 0515 131/82 ? ? (!) 54 18 100 % ? ? 01/23/19 0500 127/78 ? ? (!) 48 16 98 % ? ? 01/23/19 0445 128/85 ? ? (!) 49 19 99 % ? ? 01/23/19 0430 135/81 ? ? (!) 50 17 98 % ? ? 01/23/19 0415 111/76 ? ? (!) 49 18 99 % ? ? 01/23/19 0400 124/66 ? ? (!) 48 10 99 % ? ? 01/23/19 0345 118/59 ? ? (!) 48 11 98 % ? ? 01/23/19 0330 116/55 ? ? (!) 49 11 97 % ? ? 01/23/19 0315 118/61 ? ? (!) 50 15 (!) 84 % ? ? 01/23/19 0300 121/73 ? ? (!) 47 16 93 % ? ? 01/23/19 0245 ? ? ? (!) 47 13 94 % ? ? 01/23/19 0230 ? ? ? (!) 49 22 94 % ? ? 01/23/19 0215 ? ? ? (!) 50 16 92 % ? ? 01/23/19 0200 ? ? ? (!) 51 16 (!) 85 % ? ? 01/23/19 0145 110/74 ? ? (!) 50 12 89 % ? ? 01/23/19 0130 126/64 ? ? (!) 49 14 96 % ? ? 01/23/19 0115 119/76 ? ? (!) 49 14 97 % ? ? 01/23/19 0104 ? ? ? (!) 38 14 96 % ? ? 01/23/19 0103 ? ? ? (!) 40 14 95 % ? ? 01/23/19 0100 85/56 ? ? (!) 43 14 95 % ? ? 01/23/19 0055 ? ? ? (!) 46 14 95 % ? ? 01/23/19 0050 ? ? ? (!) 41 14 95 % ? ? 01/23/19 0045 85/56 ? ? (!) 40 14 95 % ? ? 01/23/19 0030 82/53 ? ? (!) 41 14 96 % ? ? 01/23/19 0015 101/66 ? ? (!) 49 14 95 % ? ? 01/23/19 0000 89/56 ? ? (!) 52 18 95 % ? ? 01/22/19 2345 88/51 ? ? 60 20 92 % ? ? 01/22/19 2332 (!) 74/43 ? 01/22/19 2330 ? ? ? (!) 53 7 99 % ? ? 01/22/19 2325 (!) 79/50 ? ? (!) 52 19 95 % ? ? 01/22/19 2315 ? ? ? (!) 51 17 97 % ? ? 01/22/19 2304 ? 36.5 ?C (97.7 ?F) Temporal ? 01/22/19 2300 91/56 ? ? (!) 59 26 98 % ? ? 01/22/19 2230 100/59 ? ? (!) 53 14 94 % ? ? 01/22/195 ? ? ? (!) 43 16 96 % ? ? 01/22/19 2200 87/56 ? ? (!) 46 14 98 % ? ? 01/22/192155 ? ? ? (!) 51 14 ? ? ? 01/22/192145 ? ? ? (!) 50 16 97 % ? ? 01/22/192144 93/60 ? ? (!) 54 16 96 % ? ? 01/22/192129 92/58 ? ? (!) 45 16 94 % ? ? 01/22/192114 ? ? ? (!) 46 15 97 % ? ? 01/22/19 2100 ? ? ? (!) 46 15 93 % ? ? 01/22/192044 ? ? ? (!) 52 18 97 % ? ? 01/22/19 2030 ? ? ? (!) 47 14 97 % ? ? 01/22/192014 101/63 ? ? (!) 50 16 98 % ? ? 01/22/191999 107/73 ? ? (!) 51 17 97 % ? ? 01/22/19 194 (!) 75/55 ? ? (!) 43 13 95 % ? ? 01/22/191930 ? 36.8 ?C (98.2 ?F) Temporal ? 01/22/191929 102/62 ? ? (!) 50 17 97 % ? ? 01/22/191924 98/55 ? ? (!) 51 16 95 % ? ? 01/22/19 190 86/50 ? ? (!) 55 20 95 % ? ? 01/22/191856 ? ? ? (!) 53 17 95 % ? ? 01/22/191854 ? ? ? (!) 54 18 94 % ? ? 01/22/19 185 ? ? ? (!) 53 17 93 % ? ? 01/22/19 1845 92/58 ? ? 60 18 92 % ? ? 01/22/19 1840 ? ? ? (!) 46 15 93 % ? ? 01/22/19 183 ? ? ? (!) 48 16 95 % ? ? 01/22/19 1830 ? ? ? 61 16 (!) 86 % ? ? 01/22/19 1820 ? ? ? (!) 54 17 92 % ? ? 01/22/191814 ? ? ? (!) 53 17 92 % ? ? 01/22/19 181 ? ? ? (!) 54 21 90 % ? ? 01/22/19 1800 93/54 ? ? (!) 55 23 (!) 87 % 167.6 cm (5' 6 ) 106.3 kg (234 lb 5.6 oz) 01/22/19 1755 ? ? ? (!) 54 21 91 % ? ? 01/22/19 174 ? 21 ? ? ? 01/22/19 1700 117/69 ? ? 55 (!) 37 100 % ? ? 01/22/19 1646 117/59 ? ? (!) 52 (!) 30 99 % ? ? 01/22/19 1537 108/67 ? ? 58 (!) 32 99 % ? ? 01/22/19 1437 106/61 ? ? (!) 54 19 (!) 89 % ? ? 01/22/19 1328 98/57 ? ? 59 20 100 % ? ? 01/22/19 1308 ? ? ? (!) 53 23 100 % ? ? 01/22/19 1257 ? ? ? 56 22 ? ? ? 01/22/19 1245 ? ? ? 55 20 98 % ? ? 01/22/19 1211 90/51 ? ? 59 20 (!) 88 % ? 107 kg (236 lb) Body mass index is 37.82 kg/m?. GENERAL:, sedated on the vent SKIN: Skin color, texture, turgor normal. No rashes or lesions. OROPHARYNX: Lips, mucosa, and tongue are normal.Teeth and gums, normal. Oropharynx normal. NECK: No jugulovenous distention, No carotid bruits, Carotid pulse normal contour, Supple LUNGS: diminished throughout CARDIAC: Normal S1 and S2; no rubs, murmurs, or gallops ABDOMEN: distended soft non tender EXTREMETIES: Extremities normal, no deformities, edema, clubbing or skin discoloration. Good capillary refill., No ulcers NEURO: sedated on the vent PULSES: 2+ radial, 2+ carotid DATA: Diagnostic tests reviewed for today's visit: Most recent labs and imaging results. Assessment/Plan Acute respiratory failure currently vent dependent Copd Decompensated hypothryoidism with myxedema hypercapnea Suspect adolfo/ohs uti culture pending on rocephin Plan Consult pulm, icu and endo Continue with current poc Medication and Non-Pharmacologic VTE Prophylaxis/Anticoagula nts Anticoagulant AND Antiplatelet Medications (From admission, onward) Start Dose Route Frequency Ordered Stop 01/22/192229 heparin 5,000 Units injection (Medical Risk Categories) 5,000 Units SUBCUTANEOUS EVERY 12 HOURS 01/22/192228 -- 01/22/192229 pneumatic compression stockings (sc,oh) 01/22/191814 vte non-pharmacologic prophylaxis - none indicated (sc,oh) 01/22/191814 activity - mobilize patient (sc,oh) VTE Prophylaxis: VTE prophylaxis appropriate SIGNATURE: Shirley Romo DO PATIENT NAME: Jorge Covington DATE: January 23, 2019 TIME: 8:20 AM PAGER/CONTACT #: [phone] Drea Burciaga OT/L 01/23/2019 10:05 AM Signed OCCUPATIONAL THERAPY MISSED VISIT SERVICE DATE: 01/23/2019 SERVICE TIME: 1004 to 1004 ROOM: [place] [address] Attempted Evaluation. Patient not seen due to Illness. RNAlessandra, reported that pt is not appropriate for therapy at this time. Per pt chart, pt is sedated and intubated. Will re-attempt as schedule allows with pt appropriateness. SIGNATURE: Drea Burciaga OT/L PATIENT NAME: Jorge Covington DATE: January 23, 2019 TIME: 10:04 AM Shyanne Elder PT 01/23/2019 10:06 AM Signed PHYSICAL THERAPY MISSED VISIT SERVICE DATE: 01/23/2019 SERVICE TIME: 1003 to 1004 ROOM: [place] [address] Attempted Evaluation. Patient not seen due to Illness(Per nsg pt not appropriate for PT Eval at this time. Sedated. Intubated). SIGNATURE: Shyanne Elder PT PATIENT NAME: Jorge Covington DATE: January 23, 2019 TIME: 10:05 AM Camila Rizvi MD, 01/25/2019 11:17 AM Edited 63 y.o. M with PMH of COPD, Hypothyroidism, presenting with progressive generalized fatigue, lower extremity weakness, slurred speech and a 30 lb weight gain since July 2018. Patient was noted to be in hypoxemic and hypercapnic respiratory failure in the ER and started on BIPAP. Patient was also noted to be bradycardic and hypotensive. He was subsequently intubated after he failed BiPAP. TSH level at admission was elevated at 92.24. Blood cultures grew klebsiella - On Ceftriaxone Previous Version Dalton Chambers MD 01/23/2019 11:10 AM Written Assessment: H/O Hypothyroidism On Po Levothyroxine stopped taking as ran out of prescriptons PLAN: Endocrinology on board IV Levothyroxine Dalton Chambers MD 01/23/2019 11:12 AM Written Assessment: Growing GNB in blood on Ceftriaxone, UA dirty, Urine Culture in progress, past h/o UTI with Proteus which was sensitive to Ceftriaxone PLAN: Continue Ceftriaxone DC Azithromycin Dalton Chambers MD 01/23/2019 11:14 AM Written Assessment: Intubated overnight PLAN: Lung protective ventilation, Wean as tolerated Christina Sheikh MD 01/23/2019 11:46 AM Addend [facility] INITIAL CONSULTATION NOTE Patient Name: Jorge Covington REASON FOR CONSULT: intubated and ventilated REQUESTING PHYSICIAN: Shirley Romo ASSESSMENT: Mr. Covington presents with gram negative sepsis (+ Blood cultures) which possibly has triggered a hypothyroid state - rule out myxedema coma. With a high TSH and very low T4, myxedema coma is certainly on the differential. He was never hypothermic, though he has been bradycardic and hypotension. His does give the history of progressive lethargy that would be consistent with myxedema coma. Until coexisting adrenal insufficiency can be excluded, the patient should be given hydrocortisone 100 mg IV q 8 hours x 2 days, then tapered. 1. Sepsis 2/2 gram negative bacteremia - unclear etiology - possibly 2/ #4 2. Severe hypothyroidism (possible myxedema coma) 2/2 #1 3. Bradycardia 2/2 #2 AND #1 4. Pneumonia (patchy infiltrate on chest xray along with increased oxygen requirements) 5. Slight abdominal guarding- unclear etiology 6. History of smoking and likely COPD- unknown spirometry- not in exacerbation RECOMMENDATIONS: - cortisol level - change steroids to hydrocortisone 100 mg IV q 8 hours x 2 day - continue with mechanical ventilation - low tidal volumes - thyroid replacement recommendations per endocrinology - ideally T4 and T3 replacement - c/w ceftriaxone/azithromyci n (01/22- ) - follow up blood cultures - monitor UOP - f/u urine culture - f/u blood cultures - culture tracheal aspirate - f/u echo - fluid resuscitation - KUB Thank you for the consultation. We will follow the patient along with you. Case discussed in detail with the patient, RN and primary attending. Patient verbalizes understanding and is in agreement with current management plan. [facility] STAFF PHYSICIAN NOTE OF PERSONAL INVOLVEMENT IN CARE This patient has a high probability of sudden, clinically significant deterioration, which requires the highest level of physician preparedness to intervene urgently. I managed/supervised life or organ supporting interventions that required frequent physician assessment. I devoted my full attention to the direct care of this patient for the amount of time indicated below. Time I spent with family or surrogate(s) is included only if the patient was incapable of providing the necessary information or participating in medical decision making. Time devoted to teaching and to any procedures I billed separately is not included. Critical Care Documentation: The patient has the following organ/system impairment(s): Respiratory failure (Acute on Chronic) Time spent providing critical care services: 35 min Christina Sheikh MD CHIEF COMPLAINT: SOB AND weakness HISTORY OF PRESENT ILLNESS: Jorge Covington is a 63 year old male, Ht 167.6 cm (5' 6 ) BMI 37.82 kg/m2, with a PMH significant for hypothyroidism and heavy smoking. Mr. Covington presented to the ED on the evening of 01/22 with confusions, slurred speech and weakness. His weakness has been progressing over the past week per chart review. On arrival to the [facility] ED, his O2 saturation on room air was 88%. He was also found to be hypotensive with a BP of 90/51. ABG on arrival demonstrated 7.28/63.4/82.7 on 2 L of oxygen. In the ED, he was placed on BiPAP 01/01 at 50% FiO2 which was then increased to settings of 12/8. Other vital sign abnormalities on admission included bradycardia to 50s. Subsequently, he was found to have worsening hypercarbia after 5 hours on bipap and he was intubated. Other pertinent lab findings include TSH of 92. Imagin01/22/19- Left sided patchy opacity, right sided patchy opacity with blunting of right costophrenic angle, ETT in place Procedures: No spirometry on file Micro: 01/22/19- Gram negative bacilli Labs- 7.37/43/98.8 Na 140 K 4.3 CO2 23 Cr 0.71 TSH 92 Free T4 < 0.1 PAST MEDICAL HISTORY Diagnosis Date - COPD (chronic obstructive pulmonary disease) (HCC) - Hypothyroidism - Leg weakness, bilateral History reviewed. No pertinent surgical history. No family history on file. Social History Tobacco Use - Smoking status: Current Every Day Smoker Packs/day: 0.50 Years: 20.00 Pack years: 10.00 Types: Cigarettes - Smokeless tobacco: Never Used Substance Use Topics - Alcohol use: Yes Comment: Occasional - Drug use: No ALLERGIES: ALLERGIES Allergen Reactions - Dust Other: See Comments sneezing - Mold Spores Itching, Other: See Comments Sneezing CURRENT OUTPATIENT MEDICATIONS: acetaminophen (ARTHRITIS PAIN RELIEF) 650 mg CR tablet Take 650 mg by mouth every 8 hours as needed. baclofen (LIORESAL) 10 mg tablet Take 15 mg by mouth three times daily. diphenhydrAMINE (BENADRYL) 25 mg capsule Take 25 mg by mouth three times daily. albuterol HFA (PROAIR HFA) 90 mcg/actuation inhaler Inhale 2 Puffs as instructed every 4 hours as needed for Wheezing/Shortness of Breath. albuterol (PROVENTIL) 2.5 mg /3 mL (0.083 %) nebulizer solution Use 2.5 mg via nebulizer twice daily. fenofibrate nanocrystallized (TRICOR) 145 mg tablet Take 145 mg by mouth once daily. esomeprazole (NEXIUM) 40 mg capsule Take 40 mg by mouth DAILY (6 AM). tamsulosin ER (FLOMAX) 0.4 mg cap Take 0.4 mg by mouth twice daily. REVIEW OF SYSTEMS: Intubated and sedated- cannot obtain Patient Vitals for the past 24 hrs: BP Temp Temp src Pulse Resp SpO2 Height Weight 01/23/19 1100 ? ? ? (!) 55 15 99 % ? ? 01/23/19 1030 140/88 ? ? (!) 57 13 99 % ? ? 01/23/19 1000 144/77 ? ? 116 18 (!) 77 % ? ? 01/23/19 0930 134/78 ? ? (!) 51 11 96 % ? ? 01/23/19 0900 139/71 ? ? 60 16 91 % ? ? 01/23/19 0830 130/63 ? ? (!) 51 12 (!) 87 % ? ? 01/23/19 0800 120/62 37.2 ?C (99 ?F) Axillary (!) 52 18 94 % ? ? 01/23/19 0744 ? ? ? (!) 51 18 98 % ? ? 01/23/19 0730 132/78 ? ? (!) 52 11 99 % ? ? 01/23/19 0715 119/73 ? ? (!) 45 18 97 % ? ? 01/23/19 0700 120/73 ? ? (!) 46 14 98 % ? ? 01/23/19 0645 117/71 ? ? (!) 45 16 97 % ? ? 01/23/19 0630 108/64 ? ? (!) 47 18 96 % ? ? 01/23/19 0615 108/63 ? ? (!) 48 18 96 % ? ? 01/23/19 0600 135/80 ? ? (!) 52 13 98 % ? ? 01/23/19 0545 ? ? ? (!) 50 14 100 % ? ? 01/23/19 0530 114/55 ? ? (!) 52 15 99 % ? ? 01/23/19 0515 131/82 ? ? (!) 54 18 100 % ? ? 01/23/19 0500 127/78 ? ? (!) 48 16 98 % ? ? 01/23/19 0445 128/85 ? ? (!) 49 19 99 % ? ? 01/23/19 0430 135/81 ? ? (!) 50 17 98 % ? ? 01/23/19 0415 111/76 ? ? (!) 49 18 99 % ? ? 01/23/19 0400 124/66 ? ? (!) 48 10 99 % ? ? 01/23/19 0345 118/59 ? ? (!) 48 11 98 % ? ? 01/23/19 0330 116/55 ? ? (!) 49 11 97 % ? ? 01/23/19 0315 118/61 ? ? (!) 50 15 (!) 84 % ? ? 01/23/19 0300 121/73 ? ? (!) 47 16 93 % ? ? 01/23/19 0245 ? ? ? (!) 47 13 94 % ? ? 01/23/19 0230 ? ? ? (!) 49 22 94 % ? ? 01/23/19 0215 ? ? ? (!) 50 16 92 % ? ? 01/23/19 0200 ? ? ? (!) 51 16 (!) 85 % ? ? 01/23/19 0145 110/74 ? ? (!) 50 12 89 % ? ? 01/23/19 0130 126/64 ? ? (!) 49 14 96 % ? ? 01/23/19 0115 119/76 ? ? (!) 49 14 97 % ? ? 01/23/19 0104 ? ? ? (!) 38 14 96 % ? ? 01/23/19 0103 ? ? ? (!) 40 14 95 % ? ? 01/23/19 0100 85/56 ? ? (!) 43 14 95 % ? ? 01/23/19 0055 ? ? ? (!) 46 14 95 % ? ? 01/23/19 0050 ? ? ? (!) 41 14 95 % ? ? 01/23/19 0045 85/56 ? ? (!) 40 14 95 % ? ? 01/23/19 0030 82/53 ? ? (!) 41 14 96 % ? ? 01/23/19 0015 101/66 ? ? (!) 49 14 95 % ? ? 01/23/19 0000 89/56 ? ? (!) 52 18 95 % ? ? 01/22/19 2345 88/51 ? ? 60 20 92 % ? ? 01/22/19 2332 (!) 74/43 ? 01/22/19 2330 ? ? ? (!) 53 7 99 % ? ? 01/22/19 2325 (!) 79/50 ? ? (!) 52 19 95 % ? ? 01/22/19 2315 ? ? ? (!) 51 17 97 % ? ? 01/22/19 2304 ? 36.5 ?C (97.7 ?F) Temporal ? 01/22/19 2300 91/56 ? ? (!) 59 26 98 % ? ? 01/22/19 2230 100/59 ? ? (!) 53 14 94 % ? ? 01/22/192214 ? ? ? (!) 43 16 96 % ? ? 01/22/19 2200 87/56 ? ? (!) 46 14 98 % ? ? 01/22/192155 ? ? ? (!) 51 14 ? ? ? 01/22/192145 ? ? ? (!) 50 16 97 % ? ? 01/22/192144 93/60 ? ? (!) 54 16 96 % ? ? 01/22/19 2130 92/58 ? ? (!) 45 16 94 % ? ? 01/22/192114 ? ? ? (!) 46 15 97 % ? ? 01/22/19 2100 ? ? ? (!) 46 15 93 % ? ? 01/22/195 ? ? ? (!) 52 18 97 % ? ? 01/22/19 2030 ? ? ? (!) 47 14 97 % ? ? 01/22/192014 101/63 ? ? (!) 50 16 98 % ? ? 01/22/191999 107/73 ? ? (!) 51 17 97 % ? ? 01/22/19 194 (!) 75/55 ? ? (!) 43 13 95 % ? ? 01/22/191930 ? 36.8 ?C (98.2 ?F) Temporal ? 01/22/191929 102/62 ? ? (!) 50 17 97 % ? ? 01/22/191924 98/55 ? ? (!) 51 16 95 % ? ? 01/22/19 190 86/50 ? ? (!) 55 20 95 % ? ? 01/22/191856 ? ? ? (!) 53 17 95 % ? ? 01/22/191854 ? ? ? (!) 54 18 94 % ? ? 01/22/191849 ? ? ? (!) 53 17 93 % ? ? 01/22/191844 92/58 ? ? 60 18 92 % ? ? 01/22/19 184 ? ? ? (!) 46 15 93 % ? ? 01/22/191834 ? ? ? (!) 48 16 95 % ? ? 01/22/19 1830 ? ? ? 61 16 (!) 86 % ? ? 01/22/19 182 ? ? ? (!) 54 17 92 % ? ? 01/22/191814 ? ? ? (!) 53 17 92 % ? ? 01/22/191809 ? ? ? (!) 54 21 90 % ? ? 01/22/19 1800 93/54 ? ? (!) 55 23 (!) 87 % 167.6 cm (5' 6 ) 106.3 kg (234 lb 5.6 oz) 01/22/19 1755 ? ? ? (!) 54 21 91 % ? ? 01/22/19 1741 ? 21 ? ? ? 01/22/19 1700 117/69 ? ? 55 (!) 37 100 % ? ? 01/22/19 1646 117/59 ? ? (!) 52 (!) 30 99 % ? ? 01/22/19 1537 108/67 ? ? 58 (!) 32 99 % ? ? 01/22/19 1437 106/61 ? ? (!) 54 19 (!) 89 % ? ? 01/22/19 1328 98/57 ? ? 59 20 100 % ? ? 01/22/19 1308 ? ? ? (!) 53 23 100 % ? ? 01/22/19 1257 ? ? ? 56 22 ? ? ? 01/22/19 1245 ? ? ? 55 20 98 % ? ? 01/22/19 1211 90/51 ? ? 59 20 (!) 88 % ? 107 kg (236 lb) Intake/Output Summary (Last 24 hours) at 01/23/2019 1117 Last data filed at 01/23/2019 1000 Gross per 24 hour Intake 1450 ml Output 1330 ml Net 120 ml PHYSICAL EXAMINATION: VITAL SIGNS: BP 140/88 Pulse 55 Temp (Src) 99 (Axillary) Resp 15 Ht 5' 6 (1.68m) Wt 234 lb 5.6 oz (106.3kg) SpO2 99% BMI 37.84 kg/(m2). O2 Therapy: Ventilator, %FIO2: 60 General appearance: critically ill appearing Skin: skin color, texture, turgor normal, no rashes or lesions Eyes: Anicteric sclera. Pupils are equally round and reactive to light. ENT:: No oral or nasal erythema, bleeding, lesions, striae Heme/Lymph:: Supple, no adenopathy; thyroid symmetric, normal size, no bruits Lungs: lungs clear to auscultation no wheezing or rhonchi Heart: bradycardic - RRR without murmur GI: slight guarding on exam Musculoskeletal:: No deformities, edema, skin discoloration. Good capillary refill. Neuro: Oriented X 3 DATA: Diagnostic tests reviewed for today's visit, films/specimens were personally reviewed by me: Most recent labs LAB RESULTS: CBC, Coags, BMP, Mg, Phos Recent Labs 01/23/19 0309 01/23/19 0202 01/22/19 1227 WBC -- 6.32 5.42 HB -- 12.9* 13.8 HCT -- 41.0 44.0 PLT -- 388 389 NA 140 133* 140 K 4.3 Unable to assay. Specimen hemolyzed. 3.6* CHLOR 105 102 103 CO2 23 22 29 BUN 8* 9 10 CREAT 0.71* 0.39* 0.90 GLUC 188* 165* 87 CA 8.7 8.8 9.9 MG -- 1.8 -- P -- 3.1 -- Liver Function, Amylase, AND Lipase Recent Labs 01/23/19 0535 01/23/19 0110 01/22/190 01/22/19 1227 TPROT -- -- -- -- 7.8 ALB -- -- -- -- 4.1 ALT -- -- -- -- 23 AST -- -- -- -- 53* ALKPHOS -- -- -- -- 80 TBILI -- -- -- -- 0.2 LACT 1.1 0.9 0.4* < > -- < > = values in this interval not displayed. Cardiac Enzymes ABGs Recent Labs 01/23/19 0535 01/23/1910901/22/192249 PH 7.374 7.294* 7.226* PCO2 43.0 51.8* 67.5* PO2 98.8* 81.7* 115* BE -0.3 -2.2 -1.7 HCO3 24.5 24.3 27.0* O2HB 95.1 92.6* 94.5* COHB 1.3 1.6 1.7 MHGB 1.2 1.2 1.2 Christina Sheikh MD Staff, Respiratory [facility] Pager #[phone] Previous Version Rossi Farmer MD 01/23/2019 12:24 PM Addendum ENDOCRINOLOGY CONSULTATION DATE OF CONSULTATION: January 23, 2019 REASON FOR CONSULTATION: Profound hypothyroidism, 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 RECOMMENDATION: -- START IV LEVOTHYROXINE NOW AT 150 mcg daily until free t4 is detectable. He likely has bowel wall edema and poor absorption, also requires hormone treatment rapidly due to overt symptoms. He has no cardiac history, therefore, his risk of arrhythmias and decreased oxygen consumption to the myocardium precipitating an anginal event are low. -- IV lt4 is being ordered from [facility] and should arrive by 1 pm -- Will need at least one week's worth of LT4 IV in stock for this patient -- CHECK FREE T4 and total T3 DAILY -- Check TSH every 2-3 days, it will not change much -- Presume adrenal insufficiency until proven otherwise. the patient is already receiving steroids (IV methyl prednisone 60 mg q6 hours) for COPD exacerbation. Additional steroids at this time are not necessary. Please let us know if you stop the steroids. -- Given that he is already on steroids checking cortisol level at this time would be futile unless it was taken PRIOR TO THE FIRST DOSE OF STEROIDS -- Continuous tele; MAP goal >65 -- Please call me for questions ANYTIME -- Keep in ICU, critically ill patient HISTORY: 63 year old male, current smoker, history COPD, hypothyroidism - historically compliant with levothyroxine 150 mcg. However in the last month it is unclear if the patient has been on levothyroxine. 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 Per , assisted living facility did not have an update medication list and it is unclear whether the patient was actually receiving Lt4 or not. Confirmed, is that he has been out of levothyroxine for the last 2 weeks. In the last few days, his has noticed that he has been hallucinating, thinking that he was seeing his father, climbing rothman that are not present and seeing cats that are not there. He has also having progressive joint pain and gained weight (uknown amount exactly) and his has noticed progressive swelling of his face and body. The patient was brought to the ED, found to be bradycardic and lethargic. He required the support of BIPAP, however, due to progressive respiratory failure the patient required intubation and admission to our medical ICU. He currently remains intubated and requires the support of levophed and dopamine. He has not yet received IV levothyroxine. He is alert and able to understand and follow commands. However he does appear tired and sleeps spontaneously throughout my conversation. Current Facility-Administered Medications Medication Dose Route Frequency Provider Last Rate Last Dose - NORepinephrine 16 mg in D5W 250 mL (LEVOPHED) 0.5-50 mcg/min INTRAVENOUS CONTINUOUS Gayatri E ([employer] Attendant) Sly - DOPamine iv infusion 800 mg/250 mL D5W 2.5-20 mcg/kg/min INTRAVENOUS CONTINUOUS Gayatri E ([employer] Attendant) Sly Stopped at 01/23/19 0324 - levothyroxine 150 mcg in NaCl (PF) 0.9% 3 mL iv syringe 150 mcg INTRAVENOUS DAILY (6 AM) Horace Jose Rai 150 mcg at 01/23/19 0307 - levothyroxine 150 mcg in NaCl (PF) 0.9% 3 mL iv syringe 150 mcg INTRAVENOUS ONE TIME Rossi Vásquez) Marleny - perflutren lipid microspheres 1.1 mg/mL 1.3 mL injection (DEFINITY) 1.3 mL INTRAVENOUS DIRECTED PRN Dalton Chambers - acetaminophen 1,000 mg tab(s) (TYLENOL) 1,000 mg ORAL q 6 H PRN Shirley M Esterle - tamsulosin ER 0.4 mg cap(s) (FLOMAX) 0.4 mg ORAL DAILY Shirley M Esterle 0.4 mg at 01/23/19 0851 - docusate sodium 100 mg cap(s) (COLACE) 100 mg ORAL BID Shirley M Esterle - polyethylene glycol 3350 17 g packet (MIRALAX, GLYCOLAX) 17 g ORAL DAILY Shirley M Esterle 17 g at 01/23/19 0851 - senna 8.6 mg tab(s) (SENOKOT) 8.6 mg ORAL BID PRN Shirley M Esterle - pantoprazole DR 40 mg tab(s) (PROTONIX) 40 mg ORAL DAILY (6 AM) Shirley M Esterle - baclofen 10 mg tab(s) (LIORESAL) 10 mg ORAL TID Shirley M Esterle 10 mg at 01/23/19 0851 - nicotine 14 mg/24 hr 1 Patch (NICODERM) 1 Patch TRANSDERMAL DAILY Shirley M Esterle 1 Patch at 01/23/19 0850 - NaCl 0.9% 3-5 mL 3-5 mL INTRAVENOUS q 12 H Shirley M Esterle 5 mL at 01/23/19 0856 - ipratropium-albuterol 3 mL nebulizer solution (DUONEB) 3 mL INHALATION q 4 H while awake Shirley M Esterle 3 mL at 01/23/19 0744 - ondansetron orally disintegrating 4 mg tab(s) (ZOFRAN ODT) 4 mg ORAL q 6 H PRN Shirley M Esterle Or - ondansetron (PF) 4 mg injection (ZOFRAN) 4 mg INTRAVENOUS q 6 H PRN Shirley M Esterle - methylPREDNISolone sod succinate(PF) 60 mg injection (SOLU-Medrol) 60 mg INTRAVENOUS q 6 H Shirley M Esterle 60 mg at 01/23/19 0600 - nicotine -- REMOVE patch OTHER DAILY Shirley M Esterle And - nicotine - verify patch OTHER q 8 H Shirley M Esterle - fenofibrate 200 mg cap(s) (LOFIBRA) 200 mg ORAL DAILY WITH BREAKFAST Shirley M Esterle 200 mg at 01/23/19 0914 - loratadine 10 mg tab(s) (CLARITIN) 10 mg ORAL DAILY Shirley M Esterle 10 mg at 01/23/19 0851 - oxybutynin XL 5 mg tab(s) (DITROPAN XL) 5 mg ORAL DAILY Shirley M Esterle 5 mg at 01/23/19 0914 - heparin 5,000 Units injection 5,000 Units SUBCUTANEOUS q 12 H Agyatri E ([employer]) Sly 5,000 Units at 01/23/19 0850 - cefTRIAXone 1 g in D5W 100 mL MB+ (ROCEPHIN) 1 g INTRAVENOUS q 24 H Gayatri E ([employer] Attendant) Sly 200 mL/hr at 01/23/19 0848 1 g at 01/23/19 0848 - propofol infusion (DIPRIVAN) 5-60 mcg/kg/min INTRAVENOUS CONTINUOUS Gayatri E ([employer] Att[employer]) Sly - fentaNYL 20 mcg/mL iv infusion in NaCl 0.9% 100 mL 25-250 mcg/hr INTRAVENOUS CONTINUOUS Gayatri E ([employer] Att[employer]) Sly 10 mL/hr at 01/23/19 0947 200 mcg/hr at 01/23/19 0947 ALLERGIES Allergen Reactions - Dust Other: See Comments sneezing - Mold Spores Itching, Other: See Comments Sneezing PAST MEDICAL HISTORY Diagnosis Date - COPD (chronic obstructive pulmonary disease) (HCC) - Hypothyroidism - Leg weakness, bilateral History reviewed. No pertinent surgical history. Social History Socioeconomic History Marital status: Spouse name: Not on file Number of children: Not on file Years of education: Not on file Highest education level: Not on file Occupational History Not on file Social Needs Financial resource strain: Not on file Food insecurity: Worry: Not on file Inability: Not on file Transportation needs: Medical: Not on file Non-medical: Not on file Tobacco Use Smoking status: Current Every Day Smoker Packs/day: 0.50 Years: 20.00 Pack years: 10 Types: Cigarettes Smokeless tobacco: Never Used Substance and Sexual Activity Alcohol use: Yes Comment: Occasional Drug use: No Sexual activity: Not on file Lifestyle Physical activity: Days per week: Not on file Minutes per session: Not on file Stress: Not on file Relationships Social connections: Talks on phone: Not on file Gets together: Not on file Attends voodoo service: Not on file Active member of club or organization: Not on file Attends meetings of clubs or organizations: Not on file Relationship status: Not on file Intimate partner violence: Fear of current or ex partner: Not on file Emotionally abused: Not on file Physically abused: Not on file Forced sexual activity: Not on file Other Topics Concerns: Not on file Social History Narrative Not on file No family history on file. Review of systems: unable to complete due to intubated status. BP 140/88 Pulse (!) 55 Temp 37.2 ?C (99 ?F) (Axillary) Resp 15 Ht 167.6 cm (5' 6 ) Wt 106.3 kg (234 lb 5.6 oz) SpO2 99% BMI 37.82 kg/m? General appearance: intubated but does not appear to be in distress. Not sedated. He has gross anasarca Skin: Skin color, texture, turgor normal, no suspicious rashes or lesions Head: normocephalic, he has periorbital edema and facial edema Eyes: Anicteric sclera. Pupils are equally round. Ears: not examined Nose/Sinuses: Nares normal. No drainage or sinus tenderness. Oropharynx: Lips, mucosa, and tongue normal, teeth and gums not examined. Neck: Supple Lungs: Breathing unlabored. intubated. Mechanical breath sounds Heart: bradycardia Abdomen: has a tense large abdomen that is distended Extremities: No deformities, +edema Musculoskeletal: Spine range of motion not tested. Neuro: unable to assess. Opens his eyes on command. LAB DATA: Fingerstick glucose readings reviewed. Rossi Farmer MD [facility] Endocrinology and Metabolism [facility] January 23, 2019 11:20 AM Previous Version Dalton Chambers MD 01/23/2019 12:02 PM Written ICU HANDP NOTE HPI: 63 y.o. M with PMH of COPD, Hypothyroidism, presenting with progressive generalized fatigue, lower extremity weakness, slurred speech and a 30 lb weight gain since July 2018. Patient was noted to be in hypoxemic and hypercapnic respiratory failure in the ER and started on BIPAP. Patient was also noted to be bradycardic and hypotensive. He was subsequently intubated after he failed BiPAP. TSH level at admission was elevated at 92.24. Blood cultures grew GNB - On Ceftriaxone Subjective PAST MEDICAL HISTORY Diagnosis Date - COPD (chronic obstructive pulmonary disease) (HCC) - Hypothyroidism - Leg weakness, bilateral History reviewed. No pertinent surgical history. No family history on file. Social History Occupational History Not on file Tobacco Use Smoking status: Current Every Day Smoker Packs/day: 0.50 Years: 20.00 Pack years: 10 Types: Cigarettes Smokeless tobacco: Never Used Substance and Sexual Activity Alcohol use: Yes Comment: Occasional Drug use: No Sexual activity: Not on file ALLERGIES Allergen Reactions - Dust Other: See Comments sneezing - Mold Spores Itching, Other: See Comments Sneezing PRIOR TO ADMISSION MEDICATIONS: Medications Prior to Admission: acetaminophen (ARTHRITIS PAIN RELIEF) 650 mg CR tablet Take 650 mg by mouth every 8 hours as needed. Disp: Rfl: Unknown at Unknown time baclofen (LIORESAL) 10 mg tablet Take 15 mg by mouth three times daily. Disp: Rfl: Unknown at Unknown time diphenhydrAMINE (BENADRYL) 25 mg capsule Take 25 mg by mouth three times daily. Disp: Rfl: Unknown at Unknown time albuterol HFA (PROAIR HFA) 90 mcg/actuation inhaler Inhale 2 Puffs as instructed every 4 hours as needed for Wheezing/Shortness of Breath. Disp: Rfl: Unknown at Unknown time albuterol (PROVENTIL) 2.5 mg /3 mL (0.083 %) nebulizer solution Use 2.5 mg via nebulizer twice daily. Disp: Rfl: Unknown at Unknown time fenofibrate nanocrystallized (TRICOR) 145 mg tablet Take 145 mg by mouth once daily. Disp: Rfl: Unknown at Unknown time esomeprazole (NEXIUM) 40 mg capsule Take 40 mg by mouth DAILY (6 AM). Disp: Rfl: Unknown at Unknown time tamsulosin ER (FLOMAX) 0.4 mg cap Take 0.4 mg by mouth twice daily. Disp: Rfl: Unknown at Unknown time REVIEW OF SYSTEMS: Patient intubated Objective Admission Weight: Weight: 107 kg (236 lb) VITAL SIGNS BP 140/88 Pulse 55 Temp (Src) 99 (Axillary) Resp 15 Ht 5' 6 (1.68m) Wt 234 lb 5.6 oz (106.3kg) SpO2 99% BMI 37.84 kg/(m2). O2 Therapy: Ventilator, %FIO2: 60 NORepinephrine DOPamine Last Rate: Stopped (01/23/19 0324) propofol infusion fentaNYL Last Rate: 200 mcg/hr (01/23/19 6331) RESPIRATORY Mechanical Ventilation: Yes, on mechanical ventilation PHYSICAL EXAM Neuro: Awake and Follows commands Pulmonary: Breath Sounds Equal: No. Reduced bilateral Cardiovascular: Regular rhythm Abdomen: Soft and Nontender Extremities: Edema- Yes Peripheral pulses- Present all extremities Wounds/Drsgs- N/A DATA: Diagnostic tests reviewed for today's visit: Most recent labs and imaging results. Most recent labs Most recent imaging Most recent EKG ICU Checklist Last Documented/Reviewed time: 01/23/2019 10:57 AM ICU Delirium Status: CAM Negative - no action required Restraint Status: Present, will maintain Restraint Maintain Reason: Maintain safety of patient ICU Mobility-Pt Has Been Out of Bed: No - Specify Line Status: None Ventilator: Present Head of Bed > 30 degrees?: Yes Mouth Care?: Yes Spontaneous Awakening?: Yes Spontaneous Breathing?: Yes Ready for Extubation?: No - specify Benson Status: Present, will maintain Benson Status Details: Accurate measurement of urine output GI/Stress Ulcer Prophylaxis: H2 blockers Nutrition is at Goal: NPO VTE Prophylaxis: Chemoprophylaxis: Heparin SQ Mechanical Prophylaxis: Thigh high SCD Pressure Injury Status: None ICU Plan Reviewed with RN: Yes ICU Family Update in Last 24 Hours: Patient updated, Family updated ICU Disposition- Is Patient Clinically Ready to Transfer to [facility] or SDU?: No Discharge Planning: To be determined Dalton Chambers MD 01/23/2019 12:06 PM Addendum SERVICE DATE: 01/23/2019 SERVICE TIME: 12:02 PM ICU HANDP NOTE HPI: 63 y.o. M with PMH of COPD, Hypothyroidism, presenting with progressive generalized fatigue, lower extremity weakness, slurred speech and a 30 lb weight gain since July 2018. Patient was noted to be in hypoxemic and hypercapnic respiratory failure in the ER and started on BIPAP. Patient was also noted to be bradycardic and hypotensive. He was subsequently intubated after he failed BiPAP. TSH level at admission was elevated at 92.24. Blood cultures grew GNB - On Ceftriaxone Subjective PAST MEDICAL HISTORY Diagnosis Date - COPD (chronic obstructive pulmonary disease) (HCC) - Hypothyroidism - Leg weakness, bilateral History reviewed. No pertinent surgical history. No family history on file. Social History Occupational History Not on file Tobacco Use Smoking status: Current Every Day Smoker Packs/day: 0.50 Years: 20.00 Pack years: 10 Types: Cigarettes Smokeless tobacco: Never Used Substance and Sexual Activity Alcohol use: Yes Comment: Occasional Drug use: No Sexual activity: Not on file ALLERGIES Allergen Reactions - Dust Other: See Comments sneezing - Mold Spores Itching, Other: See Comments Sneezing PRIOR TO ADMISSION MEDICATIONS: Medications Prior to Admission: acetaminophen (ARTHRITIS PAIN RELIEF) 650 mg CR tablet Take 650 mg by mouth every 8 hours as needed. Disp: Rfl: Unknown at Unknown time baclofen (LIORESAL) 10 mg tablet Take 15 mg by mouth three times daily. Disp: Rfl: Unknown at Unknown time diphenhydrAMINE (BENADRYL) 25 mg capsule Take 25 mg by mouth three times daily. Disp: Rfl: Unknown at Unknown time albuterol HFA (PROAIR HFA) 90 mcg/actuation inhaler Inhale 2 Puffs as instructed every 4 hours as needed for Wheezing/Shortness of Breath. Disp: Rfl: Unknown at Unknown time albuterol (PROVENTIL) 2.5 mg /3 mL (0.083 %) nebulizer solution Use 2.5 mg via nebulizer twice daily. Disp: Rfl: Unknown at Unknown time fenofibrate nanocrystallized (TRICOR) 145 mg tablet Take 145 mg by mouth once daily. Disp: Rfl: Unknown at Unknown time esomeprazole (NEXIUM) 40 mg capsule Take 40 mg by mouth DAILY (6 AM). Disp: Rfl: Unknown at Unknown time tamsulosin ER (FLOMAX) 0.4 mg cap Take 0.4 mg by mouth twice daily. Disp: Rfl: Unknown at Unknown time REVIEW OF SYSTEMS: Patient intubated Objective Admission Weight: Weight: 107 kg (236 lb) VITAL SIGNS BP 140/88 Pulse 55 Temp (Src) 99 (Axillary) Resp 15 Ht 5' 6 (1.68m) Wt 234 lb 5.6 oz (106.3kg) SpO2 99% BMI 37.84 kg/(m2). O2 Therapy: Ventilator, %FIO2: 60 NORepinephrine DOPamine Last Rate: Stopped (01/23/19 032) propofol infusion fentaNYL Last Rate: 200 mcg/hr (01/23/19 1976) RESPIRATORY Mechanical Ventilation: Yes, on mechanical ventilation PHYSICAL EXAM Neuro: Awake and Follows commands Pulmonary: Breath Sounds Equal: No. Reduced bilateral Cardiovascular: Regular rhythm Abdomen: Soft and Nontender Extremities: Edema- Yes Peripheral pulses- Present all extremities Wounds/Drsgs- N/A DATA: Diagnostic tests reviewed for today's visit: Most recent labs and imaging results. Most recent labs Most recent imaging Most recent EKG ICU Checklist Last Documented/Reviewed time: 01/23/2019 10:57 AM ICU Delirium Status: CAM Negative - no action required Restraint Status: Present, will maintain Restraint Maintain Reason: Maintain safety of patient ICU Mobility-Pt Has Been Out of Bed: No - Specify Line Status: None Ventilator: Present Head of Bed > 30 degrees?: Yes Mouth Care?: Yes Spontaneous Awakening?: Yes Spontaneous Breathing?: Yes Ready for Extubation?: No - specify Benson Status: Present, will maintain Benson Status Details: Accurate measurement of urine output GI/Stress Ulcer Prophylaxis: H2 blockers Nutrition is at Goal: NPO VTE Prophylaxis: Chemoprophylaxis: Heparin SQ Mechanical Prophylaxis: Thigh high SCD Pressure Injury Status: None ICU Plan Reviewed with RN: Yes ICU Family Update in Last 24 Hours: Patient updated, Family updated ICU Disposition- Is Patient Clinically Ready to Transfer to [facility] or SDU?: No Discharge Planning: To be determined ASSESSMENT AND PLAN Neurology Myxedema coma (HCC) Assessment: H/O Hypothyroidism On Po Levothyroxine stopped taking as ran out of prescriptons PLAN: Endocrinology on board IV Levothyroxine Pulmonary Acute respiratory failure (HCC) Assessment: Intubated overnight PLAN: Lung protective ventilation, Wean as tolerated Infectious Disease Septicemia ([facility]) Assessment: Growing GNB in blood on Ceftriaxone, UA dirty, Urine Culture in progress, past h/o UTI with Proteus which was sensitive to Ceftriaxone PLAN: Continue Ceftriaxone DC Azithromycin Medication and Non-Pharmacologic VTE Prophylaxis/Anticoagula nts Anticoagulant AND Antiplatelet Medications (From admission, onward) Start Dose Route Frequency Ordered Stop 01/22/19 2230 heparin 5,000 Units injection (Medical Risk Categories) 5,000 Units SUBCUTANEOUS EVERY 12 HOURS 01/22/19 2229 -- 01/22/19 2230 pneumatic compression stockings (sc,va) 01/22/19 181 vte non-pharmacologic prophylaxis - none indicated (sc,oh) 01/22/191814 activity - mobilize patient (sc,va) VTE Prophylaxis: VTE prophylaxis appropriate Plan of care discussed with: Family/Significant Other: and RN SIGNATURE: Dalton Chambers MD PATIENT NAME: Jorge Covington DATE: January 23, 2019 TIME: 12:02 PM PAGER/CONTACT #: [phone] ICU STAFF Note of Personal Involvement in Care This patient has a high probability of sudden, clinically significant deterioration, which requires the highest level of physician preparedness to intervene urgently. I managed/ supervised life or organ supporting interventions that required frequent physician assessment. I devoted my full attention to the direct care of this patient, including physical examination, verifying findings, reviewing labs and imaging, discussing with primary physician and consultants, and developing a plan of care with the bedside nurse for the amount of time indicated below. Critical Care Documentation: The patient has the following organ/system impairment(s): Pulmonary Time spent providing critical care services: 40 minutes. The time excludes any associated procedures which will be documented and billed separately. Previous Version DAVID Webb, CT 01/23/2019 12:32 PM Signed Radiology Service Progress Note PATIENT NAME: Jorge Covington DATE OF SERVICE: January 23, 2019 TIME: 12:32 PM PATIENT IDENTITY VERIFICATION COMPLETED USING TWO (2) METHODS: Name and Date of confirmed by identification band. PATIENT GENDER DATA: Male PATIENT RELEVANT IMPLANT DATA REVIEWED: Not Applicable RADIOLOGY DEPARTMENT: General X-ray: Exam(s) Completed: Abdomen X-Ray Abdomen PERIPHERAL IV DATA: Not applicable SIGNED BY: DAVID Webb January 23, 2019 12:32 PM Alessandra Norton RN, RN 01/23/2019 12:56 PM Signed Nursing Progress: Topic: RESTRAINT NON-VIOLENT PATIENT NAME: Jorge Covington PATIENT LOCATION: [facility]0001/[id number] The patient demonstrates Attempting to Remove Medical Devices Vital to Medical Stability, Lack of Understanding/Ability to Comply with Safety Directions, Inability to be Redirected, Inability to Retain Information Regarding Safety Directions as evidenced by the following behaviors reaching for the ET tube and IV lines which pose an imminent danger to self or others. The following interventions were attempted but were not effective in protecting the patient's safety: Alarms, Call Light Within Reach, Contraindicated - Imminent Safety Risk Next, a comprehensive assessment was performed and warranted placing the patient in Soft Bilateral Wrists, the least restrictive restraint needed to protect the patient's safety. Ongoing safety assessments and evaluation for earliest removal of restraints will be performed. DATE: January 23, 2019 TIME: 12:55 PM VIKTOR Cuello DO 01/24/2019 9:42 AM Signed INTERNAL MEDICINE PROGRESS NOTE SERVICE DATE: 01/24/2019 SERVICE TIME: 9:38 AM ADMITTING PHYSICIAN: Shirley Romo Subjective CHIEF COMPLAINT: Weakness, hypoxia Current Facility-Administered Medications Medication Dose Route Frequency - NORepinephrine 16 mg in D5W 250 mL (LEVOPHED) 0.5-50 mcg/min INTRAVENOUS CONTINUOUS - DOPamine iv infusion 800 mg/250 mL D5W 2.5-20 mcg/kg/min INTRAVENOUS CONTINUOUS - levothyroxine 150 mcg in NaCl (PF) 0.9% 3 mL iv syringe 150 mcg INTRAVENOUS DAILY (6 AM) - docusate 100 mg oral liquid (DIOCTO, COLACE) 100 mg ORAL BID - acetaminophen 1,000 mg tab(s) (TYLENOL) 1,000 mg ORAL q 6 H PRN - tamsulosin ER 0.4 mg cap(s) (FLOMAX) 0.4 mg ORAL DAILY - polyethylene glycol 3350 17 g packet (MIRALAX, GLYCOLAX) 17 g ORAL DAILY - senna 8.6 mg tab(s) (SENOKOT) 8.6 mg ORAL BID PRN - pantoprazole DR 40 mg tab(s) (PROTONIX) 40 mg ORAL DAILY (6 AM) - baclofen 10 mg tab(s) (LIORESAL) 10 mg ORAL TID - nicotine 14 mg/24 hr 1 Patch (NICODERM) 1 Patch TRANSDERMAL DAILY - NaCl 0.9% 3-5 mL 3-5 mL INTRAVENOUS q 12 H - ipratropium-albuterol 3 mL nebulizer solution (DUONEB) 3 mL INHALATION q 4 H while awake - ondansetron orally disintegrating 4 mg tab(s) (ZOFRAN ODT) 4 mg ORAL q 6 H PRN Or - ondansetron (PF) 4 mg injection (ZOFRAN) 4 mg INTRAVENOUS q 6 H PRN - nicotine -- REMOVE patch OTHER DAILY And - nicotine - verify patch OTHER q 8 H - fenofibrate 200 mg cap(s) (LOFIBRA) 200 mg ORAL DAILY WITH BREAKFAST - loratadine 10 mg tab(s) (CLARITIN) 10 mg ORAL DAILY - oxybutynin XL 5 mg tab(s) (DITROPAN XL) 5 mg ORAL DAILY - heparin 5,000 Units injection 5,000 Units SUBCUTANEOUS q 12 H - cefTRIAXone 1 g in D5W 100 mL MB+ (ROCEPHIN) 1 g INTRAVENOUS q 24 H - propofol infusion (DIPRIVAN) 5-60 mcg/kg/min INTRAVENOUS CONTINUOUS - fentaNYL 20 mcg/mL iv infusion in NaCl 0.9% 100 mL 25-250 mcg/hr INTRAVENOUS CONTINUOUS INTERVAL HISTORY OF PRESENT ILLNESS: Pt remains sedated on the ventilator this am. Endocrinology following and appreciate their input. Pulmonary also following. Growing GNB in blood likely from urine on rocephin now. Objective PHYSICAL EXAM: Patient Vitals for the past 24 hrs: BP Temp Temp src Pulse Resp SpO2 01/24/19 0810 ? ? ? (!) 53 18 ? 01/24/19 0802 ? ? ? (!) 54 18 94 % 01/24/19 0600 97/54 ? ? (!) 49 ? 97 % 01/24/19 0505 102/60 ? ? (!) 53 ? 99 % 01/24/19 0410 ? ? ? (!) 54 18 97 % 01/24/19 0400 141/96 ? ? (!) 59 23 96 % 01/24/19 0300 147/83 37.5 ?C (99.5 ?F) Temporal Art (!) 55 18 97 % 01/24/19 0200 103/58 ? ? (!) 54 18 98 % 01/24/19 0100 146/83 ? ? (!) 54 18 97 % 01/24/19 0000 114/57 ? ? (!) 49 18 98 % 01/23/19 2334 ? 37.1 ?C (98.8 ?F) ? (!) 52 18 97 % 01/23/19 2300 89/53 ? ? (!) 54 18 97 % 01/23/19 2200 138/65 ? ? (!) 57 18 95 % 01/23/19 2100 111/65 ? ? (!) 51 (!) 2 94 % 01/23/19 2000 112/62 ? ? (!) 56 7 93 % 01/23/191954 ? ? ? (!) 54 18 ? 01/23/19 1940 ? 95 % 01/23/19 1925 ? ? ? (!) 47 19 97 % 01/23/19 1900 135/75 ? ? (!) 48 9 96 % 01/23/19 1800 117/65 ? ? (!) 53 18 98 % 01/23/19 1730 147/68 ? ? (!) 58 18 90 % 01/23/19 1700 109/68 ? ? (!) 50 18 94 % 01/23/19 1630 107/67 ? ? (!) 50 18 93 % 01/23/19 1600 104/63 36.9 ?C (98.4 ?F) Axillary (!) 53 18 93 % 01/23/19 1532 ? ? ? (!) 54 18 ? 01/23/19 1530 108/64 ? ? (!) 53 18 94 % 10/27/19 1522 ? ? ? (!) 54 18 94 % 01/23/19 1500 120/76 ? ? (!) 53 18 94 % 01/23/19 1430 156/91 ? ? (!) 50 16 99 % 01/23/19 1400 104/59 ? ? (!) 50 18 91 % 01/23/19 1330 111/56 ? ? (!) 50 18 91 % 01/23/19 1300 96/51 ? ? (!) 53 18 91 % 01/23/19 1230 106/59 ? ? (!) 52 18 (!) 58 % 01/23/19 1209 ? ? ? (!) 54 ? 96 % 01/23/19 1200 101/55 ? ? (!) 50 18 96 % 01/23/19 1130 115/68 ? ? (!) 50 18 98 % 01/23/19 1100 129/64 ? ? (!) 55 15 99 % 01/23/19 1030 140/88 ? ? (!) 57 13 99 % 01/23/19 1000 144/77 ? ? 116 18 (!) 77 % Body mass index is 37.82 kg/m?. GENERAL: sedated SKIN: Skin color, texture, turgor normal. No rashes or lesions. OROPHARYNX: Lips, mucosa, and tongue are normal.Teeth and gums, normal. Oropharynx normal. NECK: No jugulovenous distention, No carotid bruits, Carotid pulse normal contour, Supple LUNGS: Lungs clear to auscultation. Good diaphragmatic excursion. CARDIAC: Normal S1 and S2; no rubs, murmurs, or gallops ABDOMEN: Abdomen soft, non-tender, BS normal, No masses or organomegaly EXTREMITIES: Extremities normal, no deformities, edema, clubbing or skin discoloration. Good capillary refill., No ulcers NEURO: sedated PULSES: 2+ radial, 2+ carotid DATA: Diagnostic tests reviewed for today's visit: Most recent labs and imaging results. Assessment/Plan Acute respiratory failure currently vent dependent Copd Decompensated hypothryoidism with myxedema following daily T3 T4 on iv synthroid hypercapnea Suspect adolfo/ohs uti cultures pending GNB septicemia on rocephin tom urine source Distended bowel loops due to thyroid likely Plan Continue current poc Steroids changed to hydrocortisone 100 mg iv q 8 Cont rocephin Repeat blood and urine cultures Medication and Non-Pharmacologic VTE Prophylaxis/Anticoagula nts Anticoagulant AND Antiplatelet Medications (From admission, onward) Start Dose Route Frequency Ordered Stop 01/22/192229 heparin 5,000 Units injection (Medical Risk Categories) 5,000 Units SUBCUTANEOUS EVERY 12 HOURS 01/22/192228 -- 01/22/192229 pneumatic compression stockings (sc,oh) 01/22/191814 vte non-pharmacologic prophylaxis - none indicated (sc,oh) 01/22/191814 activity - mobilize patient (sc,va) VTE Prophylaxis: VTE prophylaxis appropriate SIGNATURE: Shirley Romo DO PATIENT NAME: Jorge Covington DATE: January 24, 2019 TIME: 9:38 AM PAGER/CONTACT #: [phone] Annie Hare PT 01/24/2019 11:48 AM Addendum PHYSICAL THERAPY MISSED VISIT SERVICE DATE: 01/24/2019 SERVICE TIME: 1023 to 1023 ROOM: [place] [address] Attempted Evaluation. Patient not seen due to (per RN not appropriate, to DC PT orders). Pt confused, intubated and sedated. Discontinued PT orders (without evaluation) as per VIKTOR Aparicio's suggestions. Please reconsult if/when appropriate. SIGNATURE: Annie Hare PT PATIENT NAME: Jorge Covington DATE: January 24, 2019 TIME: 10:25 AM Previous Version Sandra Simon MD 01/24/2019 1:16 PM Addendum ENDOCRINE PROGRESS NOTE PATIENT NAME: Jorge Covington SERVICE DATE: 01/24/2019 ASSESSMENT AND PLAN Mr. Covington is a 63 year old male with PMHx of COPD, hypothyroidism, Myelomalacia of the cervical cord admitted to the hospital with profound hypothyroidism. Hypothyroidism/Myxedema coma based on his initial presentation Currently on IV levothyroxine Free T4 has improved Continue to monitor free thyroid hormones daily Continue IV levothyroxine for now Presume adrenal insufficiency-He is already on IV steroids for COPD exacerbation Interval HPI Patient ran of levothyroxine for > 2 weeks TSH was 92 at the time of admission. Mental status has improved He is following commands Will likely be extubated PAST MEDICAL HISTORY: PAST MEDICAL HISTORY Diagnosis Date - COPD (chronic obstructive pulmonary disease) (HCC) - Hypothyroidism - Leg weakness, bilateral CURRENT MEDICATION: Current Facility-Administered Medications Medication Dose Route Frequency Provider Last Rate Last Dose - lactated ringers infusion 50 mL/hr INTRAVENOUS CONTINUOUS Rami S (Fel) MD Dmitri 50 mL/hr at 01/24/19 1039 50 mL/hr at 01/24/19 1039 - levothyroxine 150 mcg in NaCl (PF) 0.9% 3 mL iv syringe 150 mcg INTRAVENOUS DAILY (6 AM) Horace Jose Jain 150 mcg at 01/24/19 0552 - docusate 100 mg oral liquid (DIOCTO, COLACE) 100 mg ORAL BID Dalton Chahar 100 mg at 01/24/19 0957 - acetaminophen 1,000 mg tab(s) (TYLENOL) 1,000 mg ORAL q 6 H PRN Shirley M Esterle - polyethylene glycol 3350 17 g packet (MIRALAX, GLYCOLAX) 17 g ORAL DAILY Shirley M Esterle 17 g at 01/24/19 0957 - senna 8.6 mg tab(s) (SENOKOT) 8.6 mg ORAL BID PRN Shirley M Esterle - pantoprazole DR 40 mg tab(s) (PROTONIX) 40 mg ORAL DAILY (6 AM) Shirley M Esterle - baclofen 10 mg tab(s) (LIORESAL) 10 mg ORAL TID Shirley M Esterle 10 mg at 01/24/19 0957 - nicotine 14 mg/24 hr 1 Patch (NICODERM) 1 Patch TRANSDERMAL DAILY Shirley M Esterle 1 Patch at 01/24/19 0957 - NaCl 0.9% 3-5 mL 3-5 mL INTRAVENOUS q 12 H Shirley M Esterle 5 mL at 01/24/19 1016 - ipratropium-albuterol 3 mL nebulizer solution (DUONEB) 3 mL INHALATION q 4 H while awake Shirley M Esterle 3 mL at 01/24/19 0802 - ondansetron orally disintegrating 4 mg tab(s) (ZOFRAN ODT) 4 mg ORAL q 6 H PRN Shirley M Esterle Or - ondansetron (PF) 4 mg injection (ZOFRAN) 4 mg INTRAVENOUS q 6 H PRN Shirley M Esterle - nicotine -- REMOVE patch OTHER DAILY Shirley M Esterle And - nicotine - verify patch OTHER q 8 H Shirley M Esterle - fenofibrate 200 mg cap(s) (LOFIBRA) 200 mg ORAL DAILY WITH BREAKFAST Shirley M Esterle 200 mg at 01/24/1958 - oxybutynin XL 5 mg tab(s) (DITROPAN XL) 5 mg ORAL DAILY Shirley M Esterle 5 mg at 01/24/1958 - heparin 5,000 Units injection 5,000 Units SUBCUTANEOUS q 12 H Gayatri E ([employer] Attendant) Sly 5,000 Units at 01/24/19 0957 - cefTRIAXone 1 g in D5W 100 mL MB+ (ROCEPHIN) 1 g INTRAVENOUS q 24 H Gayatri E ([employer] Att[employer]) Sly 200 mL/hr at 01/24/19 0955 1 g at 01/24/19954 - propofol infusion (DIPRIVAN) 5-60 mcg/kg/min INTRAVENOUS CONTINUOUS Gayatri E ([employer] Attendant) Sly CURRENT ALLERGIES: Allergies As of Date: 01/22/2019 Allergen Noted Reaction DUST 06/02/2018 Other: See Comments MOLD SPORES 06/02/2018 Itching and Other: See Comments Fully Assessed 01/22/2019 COMPLETE REVIEW OF SYSTEMS: Unable to obtain since patient is intubated. OBJECTIVE PHYSICAL EXAM: BP 97/54 Pulse 53 Temp 37.5 ?C (99.5 ?F) (Temporal Artery) Resp 18 Ht 167.6 cm (5' 6 )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 Nonadherence Identified: No barriers noted The above information represents the best possible medication history: Yes Additional comments: ? Medications removed: ? Calamine-zinc oxide - no longer uses ? Docusate - no longer takes ? Fexofenadine - no longer takes ? Heparin prophylaxis - therapy complete ? Levothyroxine - no longer takes ? Nicotine - no longer takes ? Miralax - no longer takes ? Senna - no longer takes ? Solifenacin - no longer takes ? Medications adjusted: ? Acetaminophen - strength and sig (patient takes 650 mg tabs; 1 tab PO TID prn) ? Baclofen 10 mg - sig (takes 1.5 tabs PO TID) ? Diphenhydramine - sig (takes 1 cap PO TID) ? Tamsulosin - sig (takes 1 cap PO BID) ? Medications added: ? Albuterol HFA ? Albuterol nebulizer ? Allergy list modifications: ? 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 Unknown at Unknown time Yes baclofen (LIORESAL) 10 mg tablet Take 15 mg by mouth three times daily. Unknown at Unknown time Yes diphenhydrAMINE (BENADRYL) 25 mg capsule Take 25 mg by mouth three times daily. Unknown at Unknown time Yes albuterol HFA (PROAIR HFA) 90 mcg/actuation inhaler Inhale 2 Puffs as instructed every 4 hours as needed for Wheezing/Shortness of Breath. Unknown at Unknown time Yes albuterol (PROVENTIL) 2.5 mg /3 mL (0.083 %) nebulizer solution Use 2.5 mg via nebulizer twice daily. Unknown at Unknown time Yes fenofibrate nanocrystallized (TRICOR) 145 mg tablet Take 145 mg by mouth once daily. Unknown at Unknown time Yes esomeprazole (NEXIUM) 40 mg capsule Take 40 mg by mouth DAILY (6 AM). Unknown at Unknown time Yes tamsulosin ER (FLOMAX) 0.4 mg cap Take 0.4 mg by mouth twice daily. Unknown at Unknown time Yes CORAL GUERRERO, PHARMACIST January 22, 2019 6:31 PM Normal [facility] TSHon 01-22-2019 TSH Qn 92.240 uU/mL High 0.400-5.500 [facility] Comment on above: Performed By: #### T SH #### [facility] Laboratory [address] [facility] [phone] Urinalysison 01-22-2019 Bilirubin, Urine Small Critically abnormal Negative [facility] Comment on above: Result Comment: Sugg est correlation with clinical findings and serum bilirubin if clinically indicated. Performed By: #### U A, UAMIC ####[facility] [id number] [phone] Clarity (U) Slightly Hazy Critically abnormal Clear [facility] Comment on above: Performed By: #### U A, UAMIC ####[facility] [address]30 [phone] Color (U) Yellow Normal Yellow [facility] Comment on above: Performed By: #### U A, UAMIC ####[facility] [address] [place] [address] Glucose Ql (U) Negative Normal Negative [facility] Comment on above: Performed By: #### U A, UAMIC ####[facility] [address] [place] [address] Hemoglobin/Blood,Ur Trace Critically abnormal Negative [facility] Comment on above: Performed By: #### U A, UAMIC ####[facility] [address] [place] [address] Ketones Ql (U) Negative Normal Negative [facility] Comment on above: Performed By: #### U A, UAMIC ####[facility] [address] [place] [address] Leukest Negative Normal Negative [facility] Comment on above: Performed By: #### U A, UAMIC ####[facility] [address] [place] [address] Nitrite Ql (U) Negative Normal [facility] Comment on above: Performed By: #### U A, UAMIC ####[facility] [address] [place] [address] pH (Bld) 6.0 Normal 5.0-8.0 [facility] Comment on above: Performed By: #### U A, UAMIC ####[place] [address] Protein (U) [Mass/Vol] Negative Normal [facility] Comment on above: Performed By: #### U A, UAMIC ####[facility] [address] [place] [address] Specific [place], Ur >1.029 High 1.001-1.029 [facility] Comment on above: Performed By: #### U A, UAMIC ####[place] [address] Urobilinogen Qn (U) 0.2 Normal 0.2-1.0 [facility] Comment on above: Performed By: #### U A, UAMIC ####[facility] [address] [place] [address] Urine Microscopic (FOR LAB U SE ONLY)on 01-22-2019 Bacteria LM.HPF (Urine sed) [#/Area] Many Critically abnormal 0 [facility] Comment on above: Performed By: #### U A, UAMIC ####[facility] [address] [place] [address] Cast SEE COMMENT Normal 0 [facility] Comment on above: Result Comment: 0 Performed By: #### U A, UAMIC ####[facility] [address] [place] [address] Epithelial cells LM.HPF (Urine sed) [#/Area] SEE COMMENT Normal [facility] Comment on above: Result Comment: 0-5 Squamous Epithelial Cells Performed By: #### U A, UAMIC ####[facility] [address] [place] [address] RBC (U) [#/Vol] 3-5 Critically abnormal 0-3 [facility] Comment on above: Performed By: #### U A, UAMIC ####[facility] [address] [place] [address] WBC (Bld) [#/Vol] 0-5 Normal 0-5 [facility] Comment on above: Performed By: #### U A, UAMIC ####[facility] [address] [place] [address] XR CHEST 1V FRONTAL PORTon 1 XR CHEST 1V FRONTAL PORT * * *Final Report* * * DATE OF EXAM: Jan 22 2019 12:45PM MDX [id number] - XR CHEST 1V FRONTAL PORT / PROCEDURE REASON: Shortness of breath * * * * Physician Interpretation * * * * Examination: XR CHEST 1V FRONTAL PORT History: Shortness of breath Technique: XR CHEST 1V FRONTAL PORT Comparison: None RESULT: Mild interstitial prominence at the lung bases. No significant collapse or consolidation. No significant pleural fluid or pneumothorax. Scoliosis. Prominence of the hilar regions. Possibly due to prominent pulmonary arteries. Mild cardiac enlargement IMPRESSION: CARDIAC ENLARGEMENT. PROMINENT CENTRAL PULMONARY ARTERIES VERSUS POSSIBLE ADENOPATHY. MILD INTERSTITIAL PROMINENCE AT THE LUNG BASES. Incidental Finding: Follow-up for this incidentally detected nodular lung density with a two view chest radiograph is recommended in 4-6 weeks, indeterminate appearance. Partner Alliance Manager: PSCB Transcribe Date/Time: Jan 22 2019 12:53P Dictated by : GARRETT VIGIL MD This examination was interpreted and the report reviewed and electronically signed by: GARRETT VIGIL MD on Jan 22 2019 12:56PM EST [id number] [facility] 06-22-2018 CNOV Office Visit (AKURFL ) CÉSARJORGE DANIELLE ([id number]) 1955 M Date Time Provider Department 06/22/18 2:00 PM SENIA PEDRAZA During your visit today, we recorded the following information about you: Weight Height 93.4 kg 1.676 m Senia Pedraza DO, MBA 06/22/2018 2:57 PM Signed ?? [facility] [place] [facility] UR[facility] LOCATION: [address] [place] [address] NEW PATIENT HISTORY AND PHYSICAL EXAM PATIENT INFO: Jorge Covington 62 year old REFERRING M.D.: Self PCP: Nathanael Cardona MD Consultation requested by Self and my final recommendations will be communicated back to the requesting physician by way of shared medical record or letter via US mail. Chief Complaint: urinary retention HPI Lamont is here for retention of urine Benson in place Complex hx, no records Here from senior living Failed voiding trial Needs full evaluation 1-Duration: 2018 2-Location: prostate 3-Severity: N/A 4-Quality: Not applicable 5-Context: N/A 6-Timing: N/A 7-Modifying factors: No treatment prior to referral 8-Associated signs AND symptoms: no additional symptoms IPSS: AMBROCIO: 01/21 PATHOLOGY: N/A LAB: WBC (k/uL) Date Value 06/16/2018 15.47 (H) RBC (m/uL) Date Value 06/16/2018 4.33 Hemoglobin (g/dL) Date Value 06/16/2018 13.0 Hematocrit (%) Date Value 06/16/2018 39.3 MCV (fL) Date Value 06/16/2018 90.8 MCH (pG) Date Value 06/16/2018 30.0 MCHC (g/dL) Date Value 06/16/2018 33.1 RDW-CV (%) Date Value 06/16/2018 13.9 Platelet Count (k/uL) Date Value 06/16/2018 654 (H) MPV (fL) Date Value 06/16/2018 9.7 Creatinine Date Value Ref Range Status 06/16/2018 0.69 (L) 0.73 - 1.22 mg/dL Final 06/15/2018 0.86 0.73 - 1.22 mg/dL Final 06/14/2018 0.86 0.73 - 1.22 mg/dL Final 06/13/2018 0.77 0.73 - 1.22 mg/dL Final No results found for: PSA pH, Urine Date Value Ref Range Status 06/13/2018 7.0 4.5 - 8.0 Final Specific [place], Ur Date Value Ref Range Status 06/13/2018 1.017 1.005 - 1.030 Final Glucose, Urine Date Value Ref Range Status 06/13/2018 Negative Negative mg/dL Final Bilirubin, Urine Date Value Ref Range Status 06/13/2018 Negative Negative Final Ketones, Urine Date Value Ref Range Status 06/13/2018 Negative Negative Final Hemoglobin/Blood,Ur Date Value Ref Range Status 06/13/2018 Negative Negative Final Protein, Urine Date Value Ref Range Status 06/13/2018 Negative Negative mg/dL Final Urobilinogen Date Value Ref Range Status 06/13/2018 Normal Normal Final Nitrites Date Value Ref Range Status 06/13/2018 Positive (A) Negative Final WBC, Urine Date Value Ref Range Status 06/13/2018 >25 (A) 0 - 5 /HPF Final Comment: Culture to follow. Indicated and ordered. IMAGING: None ALLERGIES: ALLERGIES Allergen Reactions - Dust Other: See Comments sneezing - Mold Spores Itching, Other: See Comments Sneezing MEDICATIONS: baclofen (LIORESAL) 10 mg tablet Take 1-1.5 tablets by mouth three times daily. acetaminophen (TYLENOL) 500 mg tablet Take 2 tablets by mouth every 8 hours as needed for Pain. Calamine-Zinc Oxide 8-8 % lotn Apply 1 application to affected area as needed. cephALEXin (KEFLEX) 500 mg capsule Take 1 capsule by mouth every 6 hours for 24 doses. diphenhydrAMINE (BENADRYL) 25 mg capsule Take 1 capsule by mouth every 6 hours as needed for Itching/Rash. solifenacin (VESICARE) 5 mg tablet Take 1 tablet by mouth once daily. docusate sodium (COLACE) 100 mg capsule Take 1 capsule by mouth twice daily. fexofenadine (ELA ALLERGY) 60 mg tablet Take 1 tablet by mouth once daily. levothyroxine (SYNTHROID) 125 mcg tablet Take 1 tablet by mouth daily before breakfast. heparin 5,000 unit/mL injection Inject 1 mL subcutaneously every 12 hours. nicotine (NICODERM) 14 mg/24 hr Apply 1 Patch as directed once daily. polyethylene glycol 3350 (MIRALAX, GLYCOLAX) 17 gram packet Take 1 Packet by mouth once daily. senna (SENOKOT) 8.6 mg tab Take 1 tablet by mouth twice daily as needed. fenofibrate nanocrystallized (TRICOR) 145 mg tablet Take 145 mg by mouth once daily. esomeprazole (NEXIUM) 40 mg capsule Take 40 mg by mouth DAILY (6 AM). tamsulosin ER (FLOMAX) 0.4 mg cap Take 0.4 mg by mouth once daily. Does the patient take any herbal medications?: No Medication list reviewed and reconciled with patient: Yes HISTORIES PAST MEDICAL HISTORY Diagnosis Date - COPD (chronic obstructive pulmonary disease) (HCC) - Hypothyroidism - Leg weakness, bilateral History reviewed. No pertinent surgical history. History reviewed. No pertinent family history. Negative family history: No SOCIAL HISTORY Social History Tobacco Use - Smoking status: Current Every Day Smoker Packs/day: 0.50 Years: 20.00 Pack years: 10.00 Types: Cigarettes - Smokeless tobacco: Never Used Substance Use Topics - Alcohol use: Yes Comment: Occasional - Drug use: No Smoking Status Reviewed: Yes No question data found. REVIEW OF SYSTEMS General:No weight loss, malaise or fevers., SEE HPI HEENT:Negative for frequent or significant headaches, No changes in hearing or vision, no nose bleeds or other nasal problems Neck:Negative for lumps, goiter, pain and significant neck swelling Respiratory: Negative for cough, wheezing or shortness of breath. Cardiovascular: Negative for chest pain, leg swelling or palpitations. Gastrointestinal: Negative for abdominal discomfort, blood in stools or black stools or change in bowel habits Genitourinary: No history of dysuria, frequency or incontinence Musculoskeletal: Negative for joint pain or swelling, back pain or muscle pain. Skin:Negative for lesions, rash, and itching. Psychologic: No dissatisfaction with life, depression or suicidal thoughts The remainder of the ROS was negative. PHYSICAL EXAMINATION Ht 167.6 cm (5' 6 ) Wt 93.4 kg (206 lb) BMI 33.25 kg/m? General appearance: Well appearing, alert, in no acute distress and well-hydrated, well nourished Skin: Skin color, texture, turgor normal, no suspicious rashes or lesions Head: Normocephalic, no masses, lesions, tenderness or abnormalities Neck: Supple, no adenopathy; thyroid symmetric, normal size, no bruits Lungs: Clear to auscultation no wheezing or rhonchi Heart: RRR without murmur, gallop, or rubs. No ectopy Abdomen: Normal abdominal exam, Abdomen soft, non-tender. Bowel sounds normal. No masses, organomegaly Extremities: Extremities normal. No deformities, edema, or skin discoloration. Good capillary refill. Genitourinary: Exam NOT Indicated PVR: NA IMPRESSION/PLAN: Urinary retention Poor historian No records Needs cysto and TRUS Continue Flomax Senia Pedraza DO MBA Letter to: Nathanael Cardona MD Referring Provider: SELF [200] Allergies As of Date: 06/22/2018 Noted Allergy Reaction DUST 06/02/2018 14 - Other: See Comments Comments: sneezing MOLD SPORES 06/02/2018 9 - Itching 14 - Other: See Comments Comments: Sneezing Date Reviewed: 06/22/2018 Reviewed by: Sharmila Jang GROCERY SPECIALIST - Fully Assessed Reason for Visit: Prostate Problem [89] Primary Visit Diagnosis:Retention of urine [R33.9] Other Visit Diagnosis:Overactive bladder [N32.81] Prescriptions as of 06/22/2018 Sig: BACLOFEN 10 MG TABLET Take 1-1.5 tablets by mouth t* ACETAMINOPHEN 500 MG TABLET Take 2 tablets by mouth every* CALAMINE 8 %-ZINC OXIDE 8 % L* Apply 1 application to affect* CEPHALEXIN 500 MG CAPSULE Take 1 capsule by mouth every* DIPHENHYDRAMINE 25 MG CAPSULE Take 1 capsule by mouth every* SOLIFENACIN 5 MG TABLET Take 1 tablet by mouth once d* DOCUSATE SODIUM 100 MG CAPSULE Take 1 capsule by mouth twice* FEXOFENADINE 60 MG TABLET Take 1 tablet by mouth once d* LEVOTHYROXINE 125 MCG TABLET Take 1 tablet by mouth daily * HEPARIN (PORCINE) 5,000 UNIT/* Inject 1 mL subcutaneously ev* NICOTINE 14 MG/24 HR DAILY TR* Apply 1 Patch as directed onc* POLYETHYLENE GLYCOL 3350 17 G* Take 1 Packet by mouth once d* SENNOSIDES 8.6 MG TABLET Take 1 tablet by mouth twice * FENOFIBRATE NANOCRYSTALLIZED * Take 145 mg by mouth once sade* ESOMEPRAZOLE MAGNESIUM 40 MG * Take 40 mg by mouth DAILY (6 * TAMSULOSIN 0.4 MG CAPSULE Take 0.4 mg by mouth once sade* Problem List As Of Date 06/22/2018 Noted Resolved Collapsed vertebra, not elsewhere classified, t*INVALID FOR* History of cervical fracture [Z87.81] INVALID FOR* Intervertebral disc disorder with radiculopathy*INVALID FOR* Spinal stenosis of cervical region [M48.02] INVALID FOR* Spinal stenosis of thoracic region [M48.04] INVALID FOR* S/P cervical spinal fusion [Z98.1] INVALID FOR* Closed fracture of cervical vertebra (HCC) [S12*INVALID FOR* Closed fracture of thoracic vertebra with routi*INVALID FOR* Leg weakness, bilateral [R29.898] INVALID FOR* Chronic bilateral low back pain without sciatic*INVALID FOR* Syrinx of spinal cord (HCC) [G95.0] INVALID FOR* 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*INVALID FOR* Myelomalacia (HCC) [G95.89] INVALID FOR* Myelomalacia of cervical cord (HCC) [G95.89] INVALID FOR* COPD (chronic obstructive pulmonary disease) (H*INVALID FOR* Hypothyroidism [E03.9] INVALID FOR* GERD (gastroesophageal reflux disease) [K21.9] INVALID FOR* Allergy [T78.40XA] INVALID FOR* Overactive bladder [N32.81] INVALID FOR* UTI (urinary tract infection) [N39.0] INVALID FOR* Follow-up and Disposition History Recorded Letter Text Encounter Status:Closed by SENIA PEDRAZA on 06/22/18 [facility] PROGRESSon 06-22-2018 Protein mass conc HNO ID: [id number] Author: Senia Pedraza Service: ? Author Type: Physician Type: Progress Notes Filed: 06/22/2018 2:57 PM Note Text: ?? [facility] [place] [facility] LOCATION: [address] [place] [address] NEW PATIENT HISTORY AND PHYSICAL EXAM PATIENT INFO: Jorge Covington 62 year old REFERRING M.D.: Self PCP: Nathanael Cardona MD Consultation requested by Self and my final recommendations will be communicated back to the requesting physician by way of shared medical record or letter via US mail. Chief Complaint: urinary retention HPI Lamont is here for retention of urine Benson in place Complex hx, no records Here from senior living Failed voiding trial Needs full evaluation 1-Duration: 2018 2-Location: prostate 3-Severity: N/A 4-Quality: Not applicable 5-Context: N/A 6-Timing: N/A 7-Modifying factors: No treatment prior to referral 8-Associated signs AND symptoms: no additional symptoms IPSS: AMBROCIO: 01/21 PATHOLOGY: N/A LAB: WBC (k/uL) Date Value 06/16/2018 15.47 (H) RBC (m/uL) Date Value 06/16/2018 4.33 Hemoglobin (g/dL) Date Value 06/16/2018 13.0 Hematocrit (%) Date Value 06/16/2018 39.3 MCV (fL) Date Value 06/16/2018 90.8 MCH (pG) Date Value 06/16/2018 30.0 MCHC (g/dL) Date Value 06/16/2018 33.1 RDW-CV (%) Date Value 06/16/2018 13.9 Platelet Count (k/uL) Date Value 06/16/2018 654 (H) MPV (fL) Date Value 06/16/2018 9.7 Creatinine Date Value Ref Range Status 06/16/2018 0.69 (L) 0.73 - 1.22 mg/dL Final 06/15/2018 0.86 0.73 - 1.22 mg/dL Final 06/14/2018 0.86 0.73 - 1.22 mg/dL Final 06/13/2018 0.77 0.73 - 1.22 mg/dL Final No results found for: PSA pH, Urine Date Value Ref Range Status 06/13/2018 7.0 4.5 - 8.0 Final Specific [place], Ur Date Value Ref Range Status 06/13/2018 1.017 1.005 - 1.030 Final Glucose, Urine Date Value Ref Range Status 06/13/2018 Negative Negative mg/dL Final Bilirubin, Urine Date Value Ref Range Status 06/13/2018 Negative Negative Final Ketones, Urine Date Value Ref Range Status 06/13/2018 Negative Negative Final Hemoglobin/Blood,Ur Date Value Ref Range Status 06/13/2018 Negative Negative Final Protein, Urine Date Value Ref Range Status 06/13/2018 Negative Negative mg/dL Final Urobilinogen Date Value Ref Range Status 06/13/2018 Normal Normal Final Nitrites Date Value Ref Range Status 06/13/2018 Positive (A) Negative Final WBC, Urine Date Value Ref Range Status 06/13/2018 >25 (A) 0 - 5 /HPF Final Comment: Culture to follow. Indicated and ordered. IMAGING: None ALLERGIES: ALLERGIES Allergen Reactions - Dust Other: See Comments sneezing - Mold Spores Itching, Other: See Comments Sneezing MEDICATIONS: baclofen (LIORESAL) 10 mg tablet Take 1-1.5 tablets by mouth three times daily. acetaminophen (TYLENOL) 500 mg tablet Take 2 tablets by mouth every 8 hours as needed for Pain. Calamine-Zinc Oxide 8-8 % lotn Apply 1 application to affected area as needed. cephALEXin (KEFLEX) 500 mg capsule Take 1 capsule by mouth every 6 hours for 24 doses. diphenhydrAMINE (BENADRYL) 25 mg capsule Take 1 capsule by mouth every 6 hours as needed for Itching/Rash. solifenacin (VESICARE) 5 mg tablet Take 1 tablet by mouth once daily. docusate sodium (COLACE) 100 mg capsule Take 1 capsule by mouth twice daily. fexofenadine (ELA ALLERGY) 60 mg tablet Take 1 tablet by mouth once daily. levothyroxine (SYNTHROID) 125 mcg tablet Take 1 tablet by mouth daily before breakfast. heparin 5,000 unit/mL injection Inject 1 mL subcutaneously every 12 hours. nicotine (NICODERM) 14 mg/24 hr Apply 1 Patch as directed once daily. polyethylene glycol 3350 (MIRALAX, GLYCOLAX) 17 gram packet Take 1 Packet by mouth once daily. senna (SENOKOT) 8.6 mg tab Take 1 tablet by mouth twice daily as needed. fenofibrate nanocrystallized (TRICOR) 145 mg tablet Take 145 mg by mouth once daily. esomeprazole (NEXIUM) 40 mg capsule Take 40 mg by mouth DAILY (6 AM). tamsulosin ER (FLOMAX) 0.4 mg cap Take 0.4 mg by mouth once daily. Does the patient take any herbal medications?: No Medication list reviewed and reconciled with patient: Yes HISTORIES PAST MEDICAL HISTORY Diagnosis Date - COPD (chronic obstructive pulmonary disease) (HCC) - Hypothyroidism - Leg weakness, bilateral History reviewed. No pertinent surgical history. History reviewed. No pertinent family history. Negative family history: No SOCIAL HISTORY Social History Tobacco Use - Smoking status: Current Every Day Smoker Packs/day: 0.50 Years: 20.00 Pack years: 10.00 Types: Cigarettes - Smokeless tobacco: Never Used Substance Use Topics - Alcohol use: Yes Comment: Occasional - Drug use: No Smoking Status Reviewed: Yes No question data found. REVIEW OF SYSTEMS General:No weight loss, malaise or fevers., SEE HPI HEENT:Negative for frequent or significant headaches, No changes in hearing or vision, no nose bleeds or other nasal problems Neck:Negative for lumps, goiter, pain and significant neck swelling Respiratory: Negative for cough, wheezing or shortness of breath. Cardiovascular: Negative for chest pain, leg swelling or palpitations. Gastrointestinal: Negative for abdominal discomfort, blood in stools or black stools or change in bowel habits Genitourinary: No history of dysuria, frequency or incontinence Musculoskeletal: Negative for joint pain or swelling, back pain or muscle pain. Skin:Negative for lesions, rash, and itching. Psychologic: No dissatisfaction with life, depression or suicidal thoughts The remainder of the ROS was negative. PHYSICAL EXAMINATION Ht 167.6 cm (5' 6 ) Wt 93.4 kg (206 lb) BMI 33.25 kg/m? General appearance: Well appearing, alert, in no acute distress and well-hydrated, well nourished Skin: Skin color, texture, turgor normal, no suspicious rashes or lesions Head: Normocephalic, no masses, lesions, tenderness or abnormalities Neck: Supple, no adenopathy; thyroid symmetric, normal size, no bruits Lungs: Clear to auscultation no wheezing or rhonchi Heart: RRR without murmur, gallop, or rubs. No ectopy Abdomen: Normal abdominal exam, Abdomen soft, non-tender. Bowel sounds normal. No masses, organomegaly Extremities: Extremities normal. No deformities, edema, or skin discoloration. Good capillary refill. Genitourinary: Exam NOT Indicated PVR: NA IMPRESSION/PLAN: Urinary retention Poor historian No records Needs cysto and TRUS Continue Flomax Senia Pedraza DO MBA Letter to: Nathanael Cardona MD [facility] Vital Signs Date Time Vital Sign Value Performing Clinician Faci lity 01-22-2024 09:34-0400 Body height 167.6 cm Rikki Casas MD Work Phone: [facility] [employer] 01-22-2024 09:34-0400 Body mass index (BMI) [Ratio] 29.05 kg/m2 Rikki Casas MD Work Phone: [facility] [employer] 01-22-2024 09:34-0400 Body weight 81.65 kg Rikki Casas MD Work Phone: [facility] [employer] 12-11-2023 14:35-0400 Diastolic blood pressure 73 mm[Hg] Rikki Casas MD Work Phone: [facility] [employer] 12-11-2023 14:35-0400 Heart rate 67 /min Rikki Casas MD Work Phone: [employer] 12-11-2023 14:35-0400 SaO2% (BldA) [Mass fraction] 99 % Rikki Casas MD Work Phone: [facility] [employer] 12-11-2023 14:35-0400 Systolic blood pressure 105 mm[Hg] Rikki Walker Work Phone: [facility] 12-11-2023 14:00-0400 Body temperature 97.5 [degF] Rikki Casas MD Work Phone: [facility] 12-11-2023 14:00-0400 Respiratory rate 16 /min Rikki Casas MD Work Phone: [facility] Encounters Encounter Date Encounter Type Care Provider Facility Start: 01-22-2024 End: 01-22-2024 Office outpatient visit 15 minutes Rikki Casas MD Work Phone: [facility] Comment on above: Urinary retention (P rimary Dx) Start: 01-22-2024 End: 01-22-2024 ambulatory [facility] Start: 12-18-2023 End: 12-28-2023 ambulatory Emerald Slater [facility] Start: 12-18-2023 End: 12-28-2023 Patient encounter procedure Emerald Slater RN [facility] Start: 12-11-2023 End: 12-11-2023 ambulatory [facility] Start: 12-11-2023 End: 12-11-2023 Subsequent hospital visit by physician Rikki Casas MD Work Phone: [facility] Start: 12-10-2023 End: 12-10-2023 Telephone encounter Rikki Casas MD Work Phone: [facility] Start: 12-07-2023 End: 12-07-2023 Telephone encounter Rikki Casas MD Work Phone: [facility] Start: 10-23-2023 End: 10-23-2023 ambulatory [facility] Start: 08-19-2023 Telephone encounter Zackery Carmona MD Work Phone: [facility] Start: 06-14-2023 Telephone encounter Nathanael fritz MD Work Phone: [facility] Clinical Communication Comment on above: Other Start: 03-06-2023 ambulatory Adilene Campbell RN [facility] Start: 03-06-2023 Patient encounter procedure Adilene Campbell RN [facility] Clinical Communication Start: 06-22-2018 End: 06-22-2018 Patient encounter procedure SENIA PEDRAZA Facility:[facility] Plan of Treatment Date Care Activity Detail Author Start: 01-22-2024 End: 01-22-2024 Patient encounter procedure [facility] Start: 12-11-2023 End: 12-11-2023 Admission to same day surgery center 12/11/2023 1:30 PM EDT - 12/11/2023 2:30 PM EDT Surgery [facility] [address] [place] [id number] Rikki Casas MD [address] [phone] CYSTOSCOPY [99190 (CPT )] [facility] Comment on above: CYSTOSCOPY [50071 (C PT )] Start: 12-11-2023 End: 12-11-2023 Anesthesia consultation 12/11/2023 1:30 PM EDT Anesthesia Event [facility] [address] [place] [phone] Edy Timmons, [employer] - [address] [phone] [facility] Start: 12-11-2023 Subsequent hospital visit by physician 12/11/2023 1:30 PM EDT Hospital Encounter [facility] [address] [place] [address] Rikki Casas MD [address] [place] [phone] [facility] Start: 12-11-2023 End: 12-11-2023 Cystostomy cystotomy w/drainage [facility] OR Start: 12-11-2023 End: 12-11-2023 Cystourethroscopy [facility] Start: 11-29-2023 COVID-19 Vaccine ( season) COVID-19 Vaccine ( season) [facility] Start: 11-29-2023 COVID-19 Vaccine ( season) COVID-19 Vaccine ( season) [facility] Start: 11-29-2023 Influenza vaccination Influenza Vacc ine (#1) [facility] Start: 10-23-2023 End: 10-23-2023 Patient encounter procedure 10/23/2023 10:30 AM EDT Office Visit [facility] [address] [place] [phone] Rikki Casas MD [address] [place] [address] [facility] Start: 10-12-2023 End: 10-12-2023 Patient encounter procedure 10/12/2023 2:00 PM EDT Office Visit [facility] [address] [place] [address] Zackery Carmona MD [address] [place], [place] [phone] [facility] Start: 11-28-2022 COVID-19 Vaccine ( season) COVID-19 Vaccine ( season) [facility] Start: 2016 RSV Immunization age d 60 or older (1 - 1-dose 60+ series) RSV Immunization aged 60 or older (1 - 1-dose 60+ series) [facility] Start: 2016 RSV Immunization for Adults (1 - Risk 60-74 years 1-dose series) RSV Immunization for Adults (1 - Risk 60-74 years 1-dose series) [facility] Start: 03-17-2015 Pneumococcal Vaccine : 65+ Years (2 of 2 - PPSV23 or PCV20) Pneumococcal Vaccine: 65+ Years (2 of 2 - PPSV23 or PCV20) [facility] Start: 2006 Zoster Vaccines (1 of 2) Zoste r Vaccines (1 of 2) [facility] Start: 08-17-1975 DTaP/Tdap/Td Vaccine s (1 - Tdap) DTaP/Tdap/Td Vaccines (1 - Tdap) [facility] Start: 1974 Diabetes mellitus screening Diabetes Screening [facility] Start: 1974 Hepatitis C screening Hepatitis C Sc reening [facility] Start: 1968 Depression Screening Depression Scre ening [facility] Start: 1955 Lipid panel Lipid Panel [facility] Start: 1955 Screening for malign ant neoplasm of colon [facility]: 1955 Thyroid stimulating hormone measurement TSH Level [facility] Immunizations Immunization Date Immunization Notes Care Provider Fa kirt 01-23-2023 influenza virus vacc ine, unspecified formulation Rikki Casas MD Work Phone: [facility] Payers Date Payer Category Payer [employer] ld [employer] - O RENETTA DECKER Member Subscriber Plan / Payer (Effective 2023-Present) Name: Jorge Covington Relation to Subscriber: Spouse Name: STACY COVINGTON Date of : 1955 Address: [address] [place] [address] Payer ID: [id number] (NAIC) Type: Commercial Address: [address] [place] [id number] 2023 Unknown RENETTA REECE S RENETTA DECKER [id number] 2023-Present [address] [place] [address] Commercial [id number] 2023 Unknown [id number] 1986 Medicare [id number] 1986 Medicare [id number] 1955 Unknown [id number] Social History Date Type Detail Facility Tobacco smoking stat [facility] Tobacco smoking consumption unknown [facility] Start: 1955 Sex Assigned At Not on file [facility] Gender identity Not on file [facility] Start: 10-28-2021 Sex Male (finding) [facility] Clinical Notes 05-26-2020 to 01-22-2024 Rikki Casas MD - 01/22/2024 9:50 AM EDTTelephone Encounter - Emerald Slater RN - 12/18/2023 4:02 PM EDTTelephone Encounter - Emerald Slater RN - 12/18/2023 4:02 PM EDT Note Date & Type Note Facility 01-22-2024 History of Present illness Narrative Images from the original note were not included. Rikki Casas MD 01/22/2024 at 5:00 PM OFFICE FOLLOW-UP VISIT PATIENT NAME: Jorge Covington DATE OF : 1955 TODAY'S DATE: 01/22/2024 CHIEF COMPLAINT: Chief Complaint Patient presents with Urinary Retention SPT placement 12/11/23, Pt states they went to ED twice since then having SPT changed Subjective: Mr. Covington is a 68 y.o. male who presents to the office for follow up of trocar suprapubic cystostomy performed on 12/11/2023. The patient apparently went into [facility] on 12/25/23 (POD#14) because the catheter was malfunctioning. According to the , she said that the balloon inflation sideport apparently got cracked and the catheter was leaking. The catheter was replaced at that time. The patient went back into the emergency department on 01/13/2024 (POD#31), because the catheter that was placed on 12/25/2023 was not functioning so well. Catheter was replaced again and the current catheter is draining just fine. There has been no further problems. There is minimal fluid draining around the catheter at the skin insertion site. The patient is having no pain. Review of Systems Past Medical History: No past medical history on file. Past Surgical History: No past surgical history on file. Allergies: Dust mite extract and Pollen extract Social History: Issues identified in the H&P were noted Family History: No family history on file. Medications Prior to Admission medications Medication Sig Start Date End Date Taking? Authorizing Provider baclofen (Lioresal) 10 MG tablet Take 15 tablets by mouth 3 times daily. 09/13/23 Yes Historical Provider, esomeprazole (NexIUM) [address] capsule Take 40 mg by mouth Daily Weight. Yes Historical Provider, tamsulosin (Flomax) 0.4 MG 24 hr capsule Take 0.4 mg by mouth in the morning and 0.4 mg in the evening. Yes Historical Provider, Vascepa 1 g capsule Take 2 g by mouth in the morning and 2 g in the evening. Take with meals. 08/31/23 Yes Historical Provider, levothyroxine (Synthroid, Levoxyl) 125 MCG tablet Take 125 mcg by mouth every morning. TAKE ON EMPTY STOMACH 09/13/23 12/12/23 Historical Provider, Vitals: Ht 5' 6 (1.676 m) Wt 180 lb (81.6 kg) BMI 29.05 kg/m Physical Exam Physical Exam Constitutional: Appearance: Normal appearance. HENT: Head: Normocephalic and atraumatic. Eyes: Extraocular Movements: Extraocular movements intact. Pulmonary: Effort: Pulmonary effort is normal. Abdominal: Comments: Skin insertion site for the suprapubic cystostomy is clean and dry. The sutures are no longer secured to the skin. There is no discharge or drainage around the catheter. 16 Zambian suprapubic tube is in place. Musculoskeletal: General: Normal range of motion. Cervical back: Normal range of motion. Neurological: General: No focal deficit present. Mental Status: He is alert and oriented to person, place, and time. Psychiatric: Mood and Affect: Mood normal. Behavior: Behavior normal. Thought Content: Thought content normal. Judgment: Judgment normal. LABS: Radiology: Impression/Plan Jorge was seen today for urinary retention. Diagnoses and all orders for this visit: Urinary retention (Primary) Follow up if symptoms worsen or fail to improve. Ordinarily I would like to wait 6 weeks to exchange the suprapubic tube. However, this has been performed on this patient without incident. We will contact the patient's home care team and see if arrangements can be made to have them perform exchange of the suprapubic cystostomy (16 Zambian) on a monthly basis Rikki Casas MD 01/22/24 5:00 PM documented in this encounter [facility] 12-18-2023 Telephone encounter Note S: Patient's spoke with [facility] nurse regarding catheter leaking where it is connected to the collection bag. B: Onset of symptoms/concern yesterday, states that taping it did not resolve the leaking. A: States there is not any leakage around the insertion site, there is still a good amount of urine draining into the bag. Denies abdominal pain, fever. She reports that leakage is where the tube is connected to the bag. R: Patient's states that they have a home health care nurse. [facility] Rn advised her to contact Home Health to see if they are able to replace the catheter. Patient's verbalized understanding. No further needs at this time. Reason for Disposition [1] Catheter is broken or cracked AND [2] still works (functioning normally) Protocols used: Urinary Catheter (e.g., Benson) Symptoms and [id number] [facility] 12-18-2023 Miscellaneous Notes S: Patient's spoke with [facility] nurse regarding catheter leaking where it is connected to the collection bag. B: Onset of symptoms/concern yesterday, states that taping it did not resolve the leaking. A: States there is not any leakage around the insertion site, there is still a good amount of urine draining into the bag. Denies abdominal pain, fever. She reports that leakage is where the tube is connected to the bag. R: Patient's states that they have a home health care nurse. [facility] Rn advised her to contact Home Health to see if they are able to replace the catheter. Patient's verbalized understanding. No further needs at this time. Reason for Disposition [1] Catheter is broken or cracked AND [2] still works (functioning normally) Protocols used: Urinary Catheter (e.g., Benson) Symptoms and [id number] documented in this encounter [facility] 12-11-2023 Miscellaneous Notes Discharged to home . Accompanied by . AVS and education reviewed with patient and , both verbalized understanding. Mode of transportation private vehicle Belongings sent. OPERATIVE NOTE Patient Name: Jorge Covington : 1955 DATE OF PROCEDURE: 12/11/2023 SURGEON: Rikki Casas MD PREOPERATIVE DIAGNOSES: Urinary incontinence POSTOPERATIVE DIAGNOSES: Urinary incontinence PROCEDURE: Cystoscopy, trocar suprapubic cystostomy ANESTHESIA: general anesthesia INDICATION FOR PROCEDURE: The patient presents with urinary incontinence that is compromising decubitus wound healing. The patient requests suprapubic cystostomy. The options had been discussed, questions were answered, and consent was obtained. FINDINGS AT PROCEDURE: Trocar suprapubic cystostomy was performed without incident. DESCRIPTION OF PROCEDURE: Under general anesthesia in the dorsal lithotomy position the patient was sterilely prepped and draped. The cystoscope was advanced into the bladder under direct vision. No urethral abnormalities had been encountered. With the water off the base of the bladder was inspected no stones were noted. Complete inspection of the bladder showed no tumors or significant mucosal abnormalities. The bladder was distended to full capacity. On the abdominal wall, in the midline 2 cm superior to the pubic symphysis, a small incision was made.. Spinal needle was passed through this area and could be seen entering into the bladder dome via the cystoscope. This was well below the colostomy and stoma appliance. Once this tract was properly identified, the Campbells trocar was then passed through the same tract and could be seen entering into the bladder dome cystoscopically. At no point did any injury occurred to the trigone. The obturator of the trocar was withdrawn. A 14 Zambian catheter was advanced through the trocar. The balloon was inflated to 10 cc, the remainder of the trocar was withdrawn. The catheter could be easily irrigated. Excellent hemostasis was in place. Cystoscope was withdrawn. The suprapubic cystostomy was secured to the skin with suture. The catheter was again irrigated to confirm that the securing suture had not occluded the lumen. Dressing was applied. Catheter was connected to drainage bag. The patient was transported to the recovery area in stable condition. documented in this encounter [facility] 12-11-2023 Note Formatting of this n ote might be different from the original. Discharged to home . Accompanied by . AVS and education reviewed with patient and , both verbalized understanding. Mode of transportation private vehicle Belongings sent. [facility] 12-11-2023 Note Formatting of this n ote might be different from the original. Discharged to home . Accompanied by . AVS and education reviewed with patient and , both verbalized understanding. Mode of transportation private vehicle Belongings sent. [facility] 12-11-2023 Note Discharged to home . Accompanied by . AVS and education reviewed with patient and , both verbalized understanding. Mode of transportation private vehicle Belongings sent. [facility] 12-11-2023 Hospital Discharge instructions Rikki Casas MD - 12/11/2023 2:10 PM EDT Post-Operative Instructions These are general instructions for you to follow after your surgery. Your doctor or a member of his staff will outline any additional or special instructions that pertain to you. Activity: You are encouraged to increase your physical activity back to the levels of what you did prior to the procedure. You may go up and down steps, but please rest when you are tired. Any limits on lifting will be discussed with you or your family by the doctor. - Do NOT drive for the remainder of the day following surgery (or perhaps longer, as instructed by the doctor). Diet and Fluid Intake: Eating a well balanced diet is important. If you were on a specific diet before your surgery, you should return to that diet. Otherwise, there are no diet restrictions after surgery. Do NOT drink alcoholic beverages while taking pain medications. Drink at least one 8-ounce glass of water between meals for 2 days after the procedure. Bowel Management: Constipation sometimes occurs after surgery, especially when taking pain medication. Eating a well-balanced diet and maintaining a good fluid intake are often all that is necessary to return to you pre-surgical bowel regimen. It is important not to strain excessively when having a bowel movement for the first several weeks following your surgery. A stool softener such as Colace may be helpful. You can purchase stool softeners without a prescription at your local drug store. If a stool softener is not enough to relieve your constipation, you may try taking Milk of Magnesia. You may use over the counter medicine, such a Gas-X, if you experience gas pains after surgery. Showering: You may shower when you get home from the hospital. If you have a string-stent in place, please cover the tape with Saran wrap prior to showering Pain Medications: Your doctor will prescribe the appropriate pain medication for you. Take these pills only as directed and only if you need them. If you are experiencing mild discomfort, you may take Tylenol or Ibuprofen. NEVER mix alcohol with prescription pain medications. Pain medication may make you drowsy. Do not take pain medication when doing any activity that requires coordination, such as driving. Infection: Report the following warning signs of infection to your doctor immediately: A temperature of 101 degrees or greater Increased redness, swelling or drainage at the incision site Sudden onset of increased pain or tenderness or warmth around the incision Foul odor from the incision site. Miscellaneous It is normal for you to have minor discomfort after your surgery. However, if there are any significant changes in your condition--such as shortness of breath, difficulty breathing, or pain or uneven swelling in your legs--please go to the Emergency Room. 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 If your work involves strenuous activity, you may need more time before returning to work. If necessary, our office can provide a letter stating the date that you may return to work. Follow-up Appointments Follow-up appointments will be scheduled by our office. If you have any questions, please call . Rikki Casas M.D. documented in this encounter [facility] 12-11-2023 Note Patient: Jorge suh Procedure Summary Date: 12/11/23 Room / Location: [facility] OR 2 / [facility] OR Anesthesia Start: 1328 Anesthesia Stop: 1355 Procedures: CYSTOSCOPY (Urethra) possible trocar suprapubic cystostomy (Abdomen) Diagnosis: Urinary incontinence (Urinary incontinence) Surgeons: Rikki Casas MD Responsible Provider: No Anesthesiologist - Jacky/MD Violeta Anesthesia Type: general ASA Status: 2 Anesthesia Type: general Vitals Value Taken Time BP 107/74 12/11/23 1356 Temp 37 ?C (98.6 ?F) 12/11/23 1356 Pulse 65 12/11/23 1356 Resp 14 12/11/23 1356 SpO2 98 % 12/11/23 1356 Anesthesia Post Evaluation Patient location during evaluation: PACU Patient participation: complete - patient participated Level of consciousness: awake and alert Pain management: satisfactory to patient Multimodal analgesia pain management approach Airway patency: patent Two or more strategies used to mitigate risk of obstructive sleep apnea Cardiovascular status: acceptable and hemodynamically stable Respiratory status: acceptable Hydration status: acceptable No notable events documented. MIPS #430 PONV Patient received an inhalational anesthetic (4554F) Patient exhibits three or more risk factors for PONV (4556F) Patient received at leaset 2 prophylactic Rx PONV anti-emtic agents of different classes preop and/or intraop (G9775) MIPS # 424 Perioperative Temperature Management Anesthesia time was less than 60 minutes (4256F) MIPS #477 Multimodal Pain Management Not emergent case Patient was administered multimodal pain management (two or more drugs and/or interventions excluding systemic opioids) in the periopeartive period occurring at some time between 6 hours prior to anesthesia start time until discharged from PACU (G2148) MIPS #404 Anesthesiology Smoking Abstinence The patient is not a current smoker (e.g. cigarette, cigar, pipe, e-cigarette/vaping/marijuana) If no stop here (XX404) I completed my handoff to the receiving clinician during which we: 1. Identified the patient 2. Identified the responsible provider 3. Reviewed the pertinent medical history 4. Discussed the surgical course 5. Reviewed intra-op anesthesia management and issues during anesthesia 6. Set expectations for post-procedure period 7. Allowed opportunity for questions and acknowledgement of understanding. [facility] 12-11-2023 Note Patient: Jorge suh Procedure Summary Date: 12/11/23 Room / Location: [facility] 2 / [facility] OR Anesthesia Start: 1328 Anesthesia Stop: 1355 Procedures: CYSTOSCOPY (Urethra) possible trocar suprapubic cystostomy (Abdomen) Diagnosis: Urinary incontinence (Urinary incontinence) Surgeons: Rikki Casas MD Responsible Provider: No Anesthesiologist - Jacky/MD Violeta Anesthesia Type: general ASA Status: 2 Anesthesia Type: general Vitals Value Taken Time BP 107/74 12/11/23 1356 Temp 37 ?C (98.6 ?F) 12/11/23 1356 Pulse 65 12/11/23 1356 Resp 14 12/11/23 1356 SpO2 98 % 12/11/23 1356 Anesthesia Post Evaluation Patient location during evaluation: PACU Patient participation: complete - patient participated Level of consciousness: awake and alert Pain management: satisfactory to patient Airway patency: patent Dental Injury: no Cardiovascular status: acceptable, blood pressure returned to baseline and hemodynamically stable Respiratory status: acceptable and spontaneous ventilation Hydration status: euvolemic Nausea/Vomiting: controlled No notable events documented. Patient can be discharged once all PACU criteria has been met. [facility] 12-11-2023 Note Airway Date/Time: 12/11/2023 1:29 PM Urgency: scheduled Airway not difficult General Information and Staff Patient location during procedure: Procedural Resident/ANIME ARTIST: Montana Iraheta APRN - ANIME ARTIST Performed: ANIME ARTIST Indications and Patient Condition Indications for airway management: anesthesia Sedation level: Asleep Preoxygenated: yes Patient position: sniffing MILS maintained throughout Mask difficulty assessment: 1 - vent by mask Final Airway Details Final airway type: supraglottic airway Successful airway: Igel Size 5 ETT size (mm): 7.0 Number of attempts at approach: 1 Ventilation between attempts: none Number of other approaches attempted: 0 [facility] 12-11-2023 Note Formatting of this n ote might be different from the original. OPERATIVE NOTE Patient Name: Jorge Covington : 1955 DATE OF PROCEDURE: 12/11/2023 SURGEON: Rikki Casas MD PREOPERATIVE DIAGNOSES: Urinary incontinence POSTOPERATIVE DIAGNOSES: Urinary incontinence PROCEDURE: Cystoscopy, trocar suprapubic cystostomy ANESTHESIA: general anesthesia INDICATION FOR PROCEDURE: The patient presents with urinary incontinence that is compromising decubitus wound healing. The patient requests suprapubic cystostomy. The options had been discussed, questions were answered, and consent was obtained. FINDINGS AT PROCEDURE: Trocar suprapubic cystostomy was performed without incident. DESCRIPTION OF PROCEDURE: Under general anesthesia in the dorsal lithotomy position the patient was sterilely prepped and draped. The cystoscope was advanced into the bladder under direct vision. No urethral abnormalities had been encountered. With the water off the base of the bladder was inspected no stones were noted. Complete inspection of the bladder showed no tumors or significant mucosal abnormalities. The bladder was distended to full capacity. On the abdominal wall, in the midline 2 cm superior to the pubic symphysis, a small incision was made.. Spinal needle was passed through this area and could be seen entering into the bladder dome via the cystoscope. This was well below the colostomy and stoma appliance. Once this tract was properly identified, the [place]ells trocar was then passed through the same tract and could be seen entering into the bladder dome cystoscopically. At no point did any injury occurred to the trigone. The obturator of the trocar was withdrawn. A 14 Zambian catheter was advanced through the trocar. The balloon was inflated to 10 cc, the remainder of the trocar was withdrawn. The catheter could be easily irrigated. Excellent hemostasis was in place. Cystoscope was withdrawn. The suprapubic cystostomy was secured to the skin with suture. The catheter was again irrigated to confirm that the securing suture had not occluded the lumen. Dressing was applied. Catheter was connected to drainage bag. The patient was transported to the recovery area in stable condition. [facility] 12-11-2023 Note Formatting of this n ote might be different from the original. OPERATIVE NOTE Patient Name: Jorge Covington : 1955 DATE OF PROCEDURE: 12/11/2023 SURGEON: Rikki Casas MD PREOPERATIVE DIAGNOSES: Urinary incontinence POSTOPERATIVE DIAGNOSES: Urinary incontinence PROCEDURE: Cystoscopy, trocar suprapubic cystostomy ANESTHESIA: general anesthesia INDICATION FOR PROCEDURE: The patient presents with urinary incontinence that is compromising decubitus wound healing. The patient requests suprapubic cystostomy. The options had been discussed, questions were answered, and consent was obtained. FINDINGS AT PROCEDURE: Trocar suprapubic cystostomy was performed without incident. DESCRIPTION OF PROCEDURE: Under general anesthesia in the dorsal lithotomy position the patient was sterilely prepped and draped. The cystoscope was advanced into the bladder under direct vision. No urethral abnormalities had been encountered. With the water off the base of the bladder was inspected no stones were noted. Complete inspection of the bladder showed no tumors or significant mucosal abnormalities. The bladder was distended to full capacity. On the abdominal wall, in the midline 2 cm superior to the pubic symphysis, a small incision was made.. Spinal needle was passed through this area and could be seen entering into the bladder dome via the cystoscope. This was well below the colostomy and stoma appliance. Once this tract was properly identified, the Campbells trocar was then passed through the same tract and could be seen entering into the bladder dome cystoscopically. At no point did any injury occurred to the trigone. The obturator of the trocar was withdrawn. A 14 Zambian catheter was advanced through the trocar. The balloon was inflated to 10 cc, the remainder of the trocar was withdrawn. The catheter could be easily irrigated. Excellent hemostasis was in place. Cystoscope was withdrawn. The suprapubic cystostomy was secured to the skin with suture. The catheter was again irrigated to confirm that the securing suture had not occluded the lumen. Dressing was applied. Catheter was connected to drainage bag. The patient was transported to the recovery area in stable condition. [facility] 12-11-2023 History and physical note [facility] Comprehensive History and Physical Name: Jorge Covington : 1955 (Age-68 y.o.) Date of evaluation: 12/11/2023 Admitting Diagnosis: Urinary incontinence [R32] Physician: Yessenia Allergies Allergen Reactions Dust Mite Extract Runny nose sneezing Pollen Extract Runny nose HPI: 68 year old man with urinary incontinence Severity: Moderate Duration: >one month Review of systems negative except for items below: History reviewed. No pertinent past medical history. There are no problems to display for this patient. History reviewed. No pertinent surgical history. No family history on file. Medications: Prior to Admission medications Medication Sig Start Date End Date Taking? Authorizing Provider baclofen (Lioresal) 10 MG tablet Take 15 tablets by mouth 3 times daily. 09/13/23 Historical Provider, esomeprazole (NexIUM) [address] capsule Take 40 mg by mouth Daily Weight. Historical Provider, levothyroxine (Synthroid, Levoxyl) 125 MCG tablet Take 125 mcg by mouth every morning. TAKE ON EMPTY STOMACH 09/13/23 12/12/23 Historical Provider, tamsulosin (Flomax) 0.4 MG 24 hr capsule Take 0.4 mg by mouth in the morning and 0.4 mg in the evening. Historical Provider, Vascepa 1 g capsule Take 2 g by mouth in the morning and 2 g in the evening. Take with meals. 08/31/23 Historical Provider, BP 107/65 Pulse 83 Temp 36.4 C (97.5 F) (Tympanic) Resp 18 SpO2 95% Physical Examination: Constitutional: No apparent distress, well nourished and in stable condition. Cardiac: Regular rate and rhythm Abdomen: Soft and nonacute Pulmonary: Clear bilaterally and no wheezing Neuro: Moves extremities X4 with no tremors HEENT: No gross cranial nerve defects and anicteric sclera Skin: Skin warm and dry with no visible rashes Vascular: Adequate perfusion of extremities with no cyanosis Psych: Alert and oriented x3 with appropriate affect Lymphatics: No swelling of arms/hands with no pedal edema Neck: FROM with no JVD Additional Notes:None DATA: Pertinent laboratory data personally reviewed by me. Radiology Review: Pertinent images personally reviewed by me. After review of the medical history and physical assessment, medications, allergies, patient's current medical condition, and labs, this patient is at acceptable risk for the planned surgical procedure and anesthestic at this surgical facility. } Impression Urinary incontinence Plan Cystoscopy, trochar suprapubic cystostomy All aspects of the procedure, along with the pros & cons of intervention and the potential associated risks & complications have been discussed with the patient. Questions have been answered, and informed consent has been obtained. Electronically signed by: Rikki Casas MD, 12/11/2023 at 1:23 PM [facility] [employer] Work Phone: 12-11-2023 History and physical note [facility] Comprehensive History and Physical Name: Jorge Covington : 1955 (Age-68 y.o.) Date of evaluation: 12/11/2023 Admitting Diagnosis: Urinary incontinence [R32] Physician: Yessenia Allergies Allergen Reactions Dust Mite Extract Runny nose sneezing Pollen Extract Runny nose HPI: 68 year old man with urinary incontinence Severity: Moderate Duration: >one month Review of systems negative except for items below: History reviewed. No pertinent past medical history. There are no problems to display for this patient. History reviewed. No pertinent surgical history. No family history on file. Medications: Prior to Admission medications Medication Sig Start Date End Date Taking? Authorizing Provider baclofen (Lioresal) 10 MG tablet Take 15 tablets by mouth 3 times daily. 09/13/23 Historical Provider, esomeprazole (NexIUM) [address] capsule Take 40 mg by mouth Daily Weight. Historical Provider, levothyroxine (Synthroid, Levoxyl) 125 MCG tablet Take 125 mcg by mouth every morning. TAKE ON EMPTY STOMACH 09/13/23 12/12/23 Historical Provider, tamsulosin (Flomax) 0.4 MG 24 hr capsule Take 0.4 mg by mouth in the morning and 0.4 mg in the evening. Historical Provider, Vascepa 1 g capsule Take 2 g by mouth in the morning and 2 g in the evening. Take with meals. 08/31/23 Historical Provider, BP 107/65 Pulse 83 Temp 36.4 C (97.5 F) (Tympanic) Resp 18 SpO2 95% Physical Examination: Constitutional: No apparent distress, well nourished and in stable condition. Cardiac: Regular rate and rhythm Abdomen: Soft and nonacute Pulmonary: Clear bilaterally and no wheezing Neuro: Moves extremities X4 with no tremors HEENT: No gross cranial nerve defects and anicteric sclera Skin: Skin warm and dry with no visible rashes Vascular: Adequate perfusion of extremities with no cyanosis Psych: Alert and oriented x3 with appropriate affect Lymphatics: No swelling of arms/hands with no pedal edema Neck: FROM with no JVD Additional Notes:None DATA: Pertinent laboratory data personally reviewed by me. Radiology Review: Pertinent images personally reviewed by me. After review of the medical history and physical assessment, medications, allergies, patient's current medical condition, and labs, this patient is at acceptable risk for the planned surgical procedure and anesthestic at this surgical facility. } Impression Urinary incontinence Plan Cystoscopy, trochar suprapubic cystostomy All aspects of the procedure, along with the pros & cons of intervention and the potential associated risks & complications have been discussed with the patient. Questions have been answered, and informed consent has been obtained. Electronically signed by: Rikki Casas MD, 12/11/2023 at 1:23 PM documented in this encounter [facility] 12-11-2023 Note [facility] Comprehensive History and Physical Name: Jorge Covington : 1955 (Age-68 y.o.) Date of evaluation: 12/11/2023 Admitting Diagnosis: Urinary incontinence [R32] Physician: Yessenia Allergies Allergen Reactions Dust Mite Extract Runny nose sneezing Pollen Extract Runny nose HPI: 68 year old man with urinary incontinence Severity: Moderate Duration: >one month Review of systems negative except for items below: History reviewed. No pertinent past medical history. There are no problems to display for this patient. History reviewed. No pertinent surgical history. No family history on file. Medications: Prior to Admission medications Medication Sig Start Date End Date Taking? Authorizing Provider baclofen (Lioresal) 10 MG tablet Take 15 tablets by mouth 3 times daily. 09/13/23 Historical Provider, esomeprazole (NexIUM) [address] capsule Take 40 mg by mouth Daily Weight. Historical Provider, levothyroxine (Synthroid, Levoxyl) 125 MCG tablet Take 125 mcg by mouth every morning. TAKE ON EMPTY STOMACH 09/13/23 12/12/23 Historical Provider, tamsulosin (Flomax) 0.4 MG 24 hr capsule Take 0.4 mg by mouth in the morning and 0.4 mg in the evening. Historical Provider, Vascepa 1 g capsule Take 2 g by mouth in the morning and 2 g in the evening. Take with meals. 08/31/23 Historical Provider, BP 107/65 Pulse 83 Temp 36.4 ?C (97.5 ?F) (Tympanic) Resp 18 SpO2 95% Physical Examination: Constitutional: No apparent distress, well nourished and in stable condition. Cardiac: Regular rate and rhythm Abdomen: Soft and nonacute Pulmonary: Clear bilaterally and no wheezing Neuro: Moves extremities X4 with no tremors HEENT: No gross cranial nerve defects and anicteric sclera Skin: Skin warm and dry with no visible rashes Vascular: Adequate perfusion of extremities with no cyanosis Psych: Alert and oriented x3 with appropriate affect Lymphatics: No swelling of arms/hands with no pedal edema Neck: FROM with no JVD Additional Notes:None DATA: Pertinent laboratory data personally reviewed by me. Radiology Review: Pertinent images personally reviewed by me. After review of the medical history and physical assessment, medications, allergies, patient's current medical condition, and labs, this patient is at acceptable risk for the planned surgical procedure and anesthestic at this surgical facility. } Impression Urinary incontinence Plan Cystoscopy, trochar suprapubic cystostomy All aspects of the procedure, along with the pros & cons of intervention and the potential associated risks & complications have been discussed with the patient. Questions have been answered, and informed consent has been obtained. Electronically signed by: Rikki Casas MD, 12/11/2023 at 1:23 PM [facility] 12-10-2023 Note Patient: Jorge suh Procedure Information Date/Time: 12/11/23 1330 Procedures: CYSTOSCOPY (Urethra) - 1 hour-Robert's trochar equipment will be needed possible trocar suprapubic cystostomy (Abdomen) Location: [facility] / [facility] OR Surgeons: Rikki Casas MD Relevant Problems No relevant active problems Past Medical History: No past medical history on file. Past Surgical History: No past surgical history on file. Social History: TOBACCO: has no history on file for tobacco use. ETOH: has no history on file for alcohol use. Social History Substance and Sexual Activity Drug Use Not on file Family History: No family history on file. Screening: unknown Clinical information reviewed: Physical Exam Airway Mallampati: II TM distance: >3 FB Neck ROM: full Mouth Open: normalendotracheal tube not in place Cardiovascular - normal exam Dental Pulmonary - normal exam Abdominal (+) obese Anesthesia Plan patient is NPO appropriate Any family history or previous problems with anesthesia no ASA 2 general Any family history or previous problems with anesthesia no The patient is not a current smoker. Anesthetic plan and risks discussed with patient. ADOLFO Screening Labs: No results found for: WBC , HGB , HCT , MCV , PLT No results found for: SODIUM , NA , POTASSIUM , K , CHLORIDE , CL , CO2 , BUN , CREATININE , GLUCOSE , CALCIUM , PROT , BILIRUBINFL , ALKPHOS , AST , ALT , EGFR , GLOB No echocardiogram results found for the past 14 days No results found for this or any previous visit. Equipment Requests: Additional Equipment Requests [facility] 12-07-2023 Telephone encounter Note error [facility] 12-07-2023 Miscellaneous Notes error documented in this encounter [facility] 09-10-2023 Telephone encounter Note Patient's called office to request an appt at the [facility]. Appt RS to 10/23/[address] Casas in [place]. [facility] 09-10-2023 Miscellaneous Notes Patient's called office to request an appt at the [place] office. Appt RS to 10/23/[address] Casas in [place]. Received message via [employer] that pt had been trying to contact office to schedule appt. Returned call and scheduled CLINICAL EXERCISE PHYSIOLOGIST appt 10/12/[address] Carmona at [facility] location. Received referral from [employer] uploaded into chart. New patient appt needed. Called pt LVM to call back to schedule. documented in this encounter [facility] 09-07-2023 Telephone encounter Note Received message via [employer] that pt had been trying to contact office to schedule appt. Returned call and scheduled CLINICAL EXERCISE PHYSIOLOGIST appt 10/12/[address] Carmona at [facility] location. [facility] 09-07-2023 Miscellaneous Notes Received message via [employer] that pt had been trying to contact office to schedule appt. Returned call and scheduled CLINICAL EXERCISE PHYSIOLOGIST appt 10/12/[address] Carmona at [facility] location. Received referral from [employer] uploaded into chart. New patient appt needed. Called pt LVM to call back to schedule. documented in this encounter [facility] 08-19-2023 Note Received referral fr [employer] uploaded into chart. New patient appt needed. Called pt LVM to call back to schedule. [facility] 08-19-2023 Telephone encounter Note Received referral from [employer] uploaded into chart. New patient appt needed. Called pt LVM to call back to schedule. [facility] 08-19-2023 Miscellaneous Notes Received referral from [employer] uploaded into chart. New patient appt needed. Called pt LVM to call back to schedule. documented in this encounter [facility] 06-14-2023 Telephone encounter Note Name of caller: Jorge Contact phone number: [phone] Relationship to Patient: patient Provider: Erasmo Practice: [facility] Chief Complaint/Reason for Call: Pt called to let provider know that the medication he takes is Baclofen and he takes 10mg, 1 and half tablets 3x daily for muscle spasms in his legs. He states provider asked him to call with this information. Best time of day caller can be reached: Any Patient advised that office/PCP has 24-48 business hours to return their call: N/A [facility] 06-14-2023 Miscellaneous Notes Name of caller: Jorge Contact phone number: [phone] Relationship to Patient: patient Provider: Erasmo Practice: [facility] Chief Complaint/Reason for Call: Pt called to let provider know that the medication he takes is Baclofen and he takes 10mg, 1 and half tablets 3x daily for muscle spasms in his legs. He states provider asked him to call with this information. Best time of day caller can be reached: Any Patient advised that office/PCP has 24-48 business hours to return their call: N/A documented in this encounter [facility] 03-06-2023 Telephone encounter Note S: pt calling CAC d/t returning call from office B: [facility] office called and left message for him to call. A: No notes in encounters or under lad, DI tabs of call today. Pt advised to call back when office is open on Thursday. R: pt will return call on Thursday when office is open. Reason for Disposition [1] Caller requesting NON-URGENT health information AND [2] PCP's office is the best resource Returning call from office Protocols used: Information Only Call - No [id number] [facility] 03-06-2023 Miscellaneous Notes S: pt calling CAC d/t returning call from office B: states office called and left message for him to call. A: No notes in encounters or under lad, DI tabs of call today. Pt advised to call back when office is open on Thursday. R: pt will return call on Thursday when office is open. Reason for Disposition [1] Caller requesting NON-URGENT health information AND [2] PCP's office is the best resource Returning call from office Protocols used: Information Only Call - No [id number] documented in this encounter [facility] [employer] 05-26-2020 Note Patient Outreach ([place] VAMN) JORGE COVINGTON ([id number]) 1955 M Date Time Provider Department 05/26/20 CATHERINESCRISTY During your visit today, we recorded the following information about you: Allergies As of Date: 05/26/2020 Noted Allergy Reaction DUST 06/02/2018 14 - Other: See Comments Comments: sneezing MOLD SPORES 06/02/2018 9 - Itching 14 - Other: See Comments Comments: Sneezing Date Reviewed: 02/02/2019 Reviewed by: Shamika (Viktor) VIKTOR Goldstein - Fully Assessed Order(s):SARS-COVID VACCINE 1ST DOSE APPT [[id number]] Order #: [id number] FUTURE Prescriptions as of 05/26/2020 Sig: PANTOPRAZOLE 40 MG INTRAVENOU* Inject 10 mL intravenously tw* BACLOFEN 10 MG TABLET Take 1 tablet by mouth three * NICOTINE 14 MG/24 HR DAILY TR* Apply 1 Patch as directed onc* POLYETHYLENE GLYCOL 3350 17 G* Take 1 Packet by mouth once d* DOCUSATE SODIUM 50 MG/5 ML OR* Take 10 mL by mouth twice sade* IPRATROPIUM 0.5 MG-ALBUTEROL * Inhale 3 mL as instructed olivier* LEVOTHYROXINE 125 MCG TABLET Take 1 tablet by mouth DAILY * OXYBUTYNIN CHLORIDE ER 5 MG T* Take 1 tablet by mouth once d* FENOFIBRATE NANOCRYSTALLIZED * Take 145 mg by mouth once sade* ESOMEPRAZOLE MAGNESIUM 40 MG * Take 40 mg by mouth DAILY (6 * TAMSULOSIN 0.4 MG CAPSULE Take 0.4 mg by mouth twice da* Problem List As Of Date 05/26/2020 Noted Resolved History of cervical fracture [Z87.81] 01/28/2018 01/27/2019 Intervertebral disc disorder with radiculopathy*01/28/2018 01/27/2019 Spinal stenosis of cervical region [M48.02] 05/07/2018 01/27/2019 Spinal stenosis of thoracic region [M48.04] 05/07/2018 01/27/2019 S/P cervical spinal fusion [Z98.1] 05/07/2018 Closed fracture of cervical vertebra (HCC) [S12*05/07/2018 01/27/2019 Closed fracture of thoracic vertebra with routi*05/07/2018 01/27/2019 Chronic bilateral low back pain without sciatic*05/07/2018 Syrinx of spinal cord (HCC) [G95.0] 05/07/2018 01/27/2019 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 Septicemia due to Klebsiella pneumoniae (HCC) [*01/23/2019 More... Encounter Status:Closed by EPIC, PRODUSER on 05/29/20 [facility] Evaluation note Diagnosis Urinary retention- Primary Unspecified retention of urine [facility] this [facility] Purpose Family History No Family History Records FoundNo Family History Records FoundNo Family History Records FoundNo Family History Records FoundNo Family History Records Found Advance Directives No Advanced Directives Records Found Date Activated Date Inactivated Comments 12/11/2023 12:03 PM 12/11/2023 5:19 PM Date Activated Date Inactivated Comments 12/11/2023 12:03 PM 12/11/2023 5:19 PM Hospital Course Note HNO ID: [id number] Author: Eliseo Romo Service: ? Author Type: Physician Type: Discharge Summary Filed: 02/02/2019 9:44 AM Note Text: DISCHARGE SUMMARY PATIENT NAME: Jorge Covington ADMISSION DATE: 01/22/2019 DISCHARGE DATE: 02/02/19 ATTENDING PHYSICIAN: Shirley Romo Code Status: Not on file Highest Readmission Risk Score: 23 The 30 day readmissions risk score is derived from an internally validated risk model which evaluates patient level characteristics, utilization history, medication orders and lab results up until the day of discharge. Patients with a score of 40 or above are considered highest risk for readmission. Specific patient level drivers will be listed at the bottom of the summary. REASON FOR HOSPITALIZATION: hypoxia DIAGNOSIS: Principal Problem: Septicemia due to Klebsiella pneumoniae (HCC) Active Problems: COPD (chronic obstructive pulmonary disease) (HCC) Hypothyroidism Resolved Problems: Acute respiratory failure (HCC) Myxedema coma (HCC) Ruled Out O (more content not included)... Note HNO ID: [id number] Author: Aparna Mason) Pawel Service: Anesthesiology Author Type: Nurse Handle Assembler Type: Procedures Filed: 01/22/2019 11:43 PM Note Text: INTUBATION PROCEDURE NOTE PROCEDURE DATE: January 22, 2019 PROCEDURE START TIME: 2329 PROCEDURE: OROTRACHEAL INTUBATION PRIMARY PROCEDURALIST: Dank Armas APRN.KAE BEAM WORKER(S): None INFORMED CONSENT: Due to emergent situation informed consent was not obtained Pt verbalized understanding of ett placement UNIVERSAL PROTOCOL / SAFETY CHECKLIST Sign in Communication: Completed Time Out: Team Confirms the Correct Patient, Correct Procedure, Correct Site and Site Marking, Correct Position (if applicable), Prep and Dry Time (if applicable). Time: 2324 Affirmation of Time Out: YES Sign Out Discussion: Completed Indication: with Hypercapnea Respiratory Failure with Hypoxia Sedation: 2 mg versed, 200 mg propofol, and 50 mg rocuronium Visualization Grade: I- visualized entire cords via direct video laryngoscopy Equipment: Intubating Bougie T (more content not included)... Procedure Findings Note HNO ID: [id number] Author: Aparna Armas Service: Anesthesiology Author Type: Nurse Handle Assembler Type: Procedures Filed: 01/22/2019 11:43 PM Note Text: INTUBATION PROCEDURE NOTE PROCEDURE DATE: January 22, 2019 PROCEDURE START TIME: 2329 PROCEDURE: OROTRACHEAL INTUBATION PRIMARY PROCEDURALIST: Dank Armas APRN.CRNA BEAM WORKER(S): None INFORMED CONSENT: Due to emergent situation informed consent was not obtained Pt verbalized understanding of ett placement UNIVERSAL PROTOCOL / SAFETY CHECKLIST Sign in Communication: Completed Time Out: Team Confirms the Correct Patient, Correct Procedure, Correct Site and Site Marking, Correct Position (if applicable), Prep and Dry Time (if applicable). Time: 2324 Affirmation of Time Out: YES Sign Out Discussion: Completed Indication: with Hypercapnea Respiratory Failure with Hypoxia Sedation: 2 mg versed, 200 mg propofol, and 50 mg rocuronium Visualization Grade: I- visualized entire cords via direct video laryngoscopy Equipment: Intubating Bougie T (more content not included)... Additional Source Comments (unrecognized sect ion and content) No Status Records FoundNo Status Records FoundNo Status Records FoundNo Status Records FoundNo Status Records Found INFORMATION SOURCE (unrecogn ized section and content) DATE CREATED AUTHOR 06/25/2018 [facility] DATE CREATED AUTHOR AUTHOR'S ORGANIZ ATION 06/25/2018 [facility] DATE CREATED AUTHOR AUTHOR'S ORGANIZ ATION 02/03/2019 [facility] DATE CREATED AUTHOR AUTHOR'S ORGANIZ ATION 05/06/2021 [facility] DATE CREATED AUTHOR AUTHOR'S ORGANIZ ATION 01/24/2024 [facility] Reason for Visit (unrecogniz ed section and content) Reason Onset Date Comments returning call 03/06/2023 Reason Onset Date Comments Other 06/14/2023 Specialty Diagnoses / Procedures Referred By Contac t Referred To Contact Diagnoses Urinary incontinence Urinary incontinence Procedures WI CYSTOURETHROSCOPY WI CYSTOSTOMY CYSTOTOMY W/DRAINAGE CYSTOSCOPY possible trocar suprapubic cystostomy Rikki Casas MD [address] [place] [address] [facility] [address] [place] [address] Referral ID Status Reason Start Date Expiration Date Visits Re quested Visits Authorized [id number] 1 Reason Onset Date Comments Urinary Catheter Problem 12/18/2023 Reason Comments Urinary Retention SPT placement 4, Pt states they went to ED twice since then having SPT changed Care Teams (unrecognized sec tion and content) Ebd Teacher Relationship Specialty Start Date End Date Nathanael Cardona MD [address] [place] [phone] PCP - General Family Medicine 03/06/23 Ebd Teacher Relationship Specialty Start Date End Date Nathanael Cardona MD [address] [place] [phone] PCP - General Family Medicine 03/06/23 Zackery Carmona MD [address] [facility] [place] [address] Surgeon Urology 08/19/23 Ebd Teacher Relationship Specialty Start Date End Date Nathanael Cardona MD [address] [place] [phone] PCP - General Family Medicine 03/06/23 Zackery Carmona MD [address] [facility] [place] [address] Surgeon Urology 08/19/23 Ebd Teacher Relationship Specialty Start Date End Date Nathanael Cardona MD [address] [place] [phone] PCP - General Family Medicine 03/06/23 Zackery Carmona MD [address] [place] [address] Surgeon Urology 08/19/23 Ebd Teacher Relationship Specialty Start Date End Date Nathanael Cardona MD [address] [place] [phone] PCP - General Family Medicine 03/06/23 Zackery Carmona MD [address] [place] [address] Surgeon Urology 08/19/23 Rikki Casas MD [address] [place] [phone] Surgeon Urology 10/23/23 Ebd Teacher Relationship Specialty Start Date End Date Nathanael Cardona MD [address] [place] [phone] PCP - General Family Medicine 03/06/23 Zackery Carmona MD [address] [place] [address] Surgeon Urology 08/19/23 Rikki Casas MD [address] [place] [phone] Surgeon Urology 10/23/23 Ebd Teacher Relationship Specialty Start Date End Date Nathanael Cardona MD [address] [place] [phone] PCP - General Family Medicine 03/06/23 Zackery Carmona MD [address] [facility] [address] [place] [address] Surgeon Urology 08/19/23 Rikki Casas MD [address] [phone] Surgeon Urology 10/23/23 Ebd Teacher Relationship Specialty Start Date End Date Nathanael Cardona MD [address] [place] [phone] PCP - General Family Medicine 03/06/23 Zackery Carmona MD [address] [address] Surgeon Urology 08/19/23 Rikki Casas MD [address] [phone] Surgeon Urology 10/23/23 Ebd Teacher Relationship Specialty Start Date End Date Nathanael Cardona MD [address] [place] [phone] PCP - General Family Medicine 03/06/23 Zackery Carmona MD [address] [address] Surgeon Urology 08/19/23 Rikki Casas MD [address] [phone] Surgeon Urology 10/23/23 FOR RECORDS PERTAINING TO PATIENTS WHO ARE OR HAVE BEEN ENROLLED IN A CHEMICAL DEPENDENCY/SUBSTANCEABUSE PROGRAM, SOME INFORMATION MAY BE OMITTED. This clinical summary was aggregated from multiple sources. Caution should be exercised in using it in the provision of clinical care. This summary normalizes information from multiple sources, and as a consequence, information in this document may materially change the coding, format and clinical context of patient data. In addition, data may be omitted in some cases. CLINICAL DECISIONS SHOULD BE BASED ON THE PRIMARY CLINICAL RECORDS. [facility] Doctor Evidence [facility]. provides no warranty or guarantee of the accuracy or completeness of information in this document.
== END 2024-01-25 17:44 | disposition home or self-care (01) ==
PROVIDERS: Emergency Provider Emergency Medicine; PCP Family Medicine; Visit Provider Emergency Medicine
DX: N39.0 Urinary tract infection, site not specified (principal); Z93.3 Colostomy status; J44.9 Chronic obstructive pulmonary disease, unspecified; Z87.891 Personal history of nicotine dependence
CPT/HCPCS: 80048; 81001; 85025; 87077; 87086; 87088; 87186; 99285; A4216

== ENCOUNTER 2024-01-27 15:45 | Outpatient (RCR) | payer BC, MEDICARE, SELFPAY ==
[2023-12-29 00:37] VITALS: BP 154/105; PULSE 90; RESP 18; TEMP 35.9; BMI 35.5
[2024-01-13 15:05] VITALS: BP 145/74; PULSE 105; RESP 18; TEMP 36.8; BMI 35.5
[2024-01-27 15:33] VITALS: BP 102/41; PULSE 95; RESP 18; BMI 35.5
== END 2024-01-28 23:59 | disposition home or self-care (01) ==
LOC: WC 15:45
PROVIDERS: PCP Family Medicine; Referring Provider Physician Assistant; Visit Provider Surgery Plastic and Reconstructive Surgery
DX: L89.314 Pressure ulcer of right buttock, stage 4 (principal); Z99.3 Dependence on wheelchair; Z79.899 Other long term (current) drug therapy; Z87.39 Personal history of other diseases of the musculoskeletal system and connective tissue; Z87.891 Personal history of nicotine dependence; Z98.890 Other specified postprocedural states
CPT/HCPCS: 11042; 11043; 97803

== ENCOUNTER 2024-02-24 14:53 | Outpatient (RCR) | payer BC, MEDICARE, SELFPAY ==
[2024-01-29 00:20] VITALS: BP 154/105; PULSE 90; RESP 18; TEMP 35.9; BMI 35.5
[2024-02-24 15:06] VITALS: BP 142/86; PULSE 84; RESP 16; TEMP 36.7; BMI 35.5
== END 2024-02-27 23:59 | disposition home or self-care (01) ==
LOC: WC 14:53
PROVIDERS: PCP Family Medicine; Referring Provider Physician Assistant; Visit Provider Surgery Plastic and Reconstructive Surgery
DX: L89.314 Pressure ulcer of right buttock, stage 4 (principal); Z99.3 Dependence on wheelchair; Z79.899 Other long term (current) drug therapy; Z87.891 Personal history of nicotine dependence; Z98.890 Other specified postprocedural states
CPT/HCPCS: 11043; 11046

== ENCOUNTER 2024-03-21 15:09 | Outpatient (RCR) | payer BC, MEDICARE, SELFPAY ==
[2024-02-28 00:17] VITALS: BP 154/105; PULSE 90; RESP 18; TEMP 35.9; BMI 35.5
[2024-03-21 15:42] VITALS: BP 157/84; PULSE 92; RESP 18; TEMP 37.1; BMI 35.5
--- NOTE | 2024-03-21 18:50 | PN.PCM_ITS ---
History of Present Illness Date of Service: 03/21/24 Chief Complaint: Right ischial pressure sore, Stage IV. History of Wound: This is a 68-year-old white male who presented to the wound healing center with complaints of pressure ulcer to right buttock area with extension to the right ischial bone. This started in October,. Patient's was treating with OTC creams and keeping area clean. The ulcer starting increasing in size and went to the Emergency Department on 02/08/22. CT showed subcutaneous and deep soft tissue involvement and possible early abscess formation. The bone was not addressed. The patient has very limited mobility as a result of a prior spine injury/surgery. He utilizes a wheelchair at all times. He has not been using his billy lift at home to transfer but has been using a board to slide himself from his bed to chair at home. He sits in his wheelchair almost all day, not really able to change positions. They finally obtained a low air loss overlay to their regular mattress at home. A roho cushion was ordered for his wheelchair. Patient is a former smoker, he quit early 2023. Surgery 04/28/22 - Excision right ischial pressure sore, Stage IV, with partial ostectomy for osteomyelitis. Size of wound 8 x 7 x 4.5 cm. Operative tissue cultures positive for MSSA and Cutibacterium acnes. Bone cultures positive for MSSA and Corynebacterium striatum. He is being treated with Augmentin. Pathology from surgery 04/28/22 showed chronic reparative and reactive change. No evidence of acute osteomyelitis. He had a diverting colostomy placed on 11/21/[address] Romero. Surgery 08/26/23 - Excision recurrent right ischial pressure sore, Stage IV, with partial ostectomy for osteomyelitis. Discharged home on 08/27/23. Pathology right ischial pressure sore soft tissue showed focal ulceration, acute and chronic inflammation an granulation tissue reaction. Right ischial bone, partial ostectomy showed fragments of bone with chronic inflammation and reactive changes, negative for acute osteomyelitis. Operative soft tissue cultures from 08/26/23 positive for Serratia marcescens, Staphylococcus capitis, and Corynebacterium striatum. Operative bone cultures from 08/26/23 positive for Serratia marcescens and Corynebacterium striatum. He was started on Levaquin and Doxycycline until he can be seen by ID on 11/04/23. Subjective Subjective 07 Dec 2023: Patient and his report that he has been working with a physical therapist since her last appointment (we ordered physical therapy) and she has been to the house twice to work with him on strengthening his lower extremities that he may potentially use a walker. He is meeting with the leather goods maker today at our wound care center after this appointment so as to improve his nutrition in anticipation of potential reconstruction. They have been doing Dakin's wet-to-dry twice daily and he is not having any fevers chills or concerns for infection. Reports that he has been offloading the wound with his bed and positioning changes. We have still not gotten any notes from the spine surgeon at the [facility]. Our team is working on this, and the patient is signed a release. The patient and his do not know the prognosis with regards to his spine and do not have follow-up with this provider at this point. I will review the notes once I have them and then I can discuss this better with the patient and his so they have proper follow up and a better understanding. CURRENT ENCOUNTER, 21 Mar 2024: Doing well overall. Have been unable to get any of the notes from outside providers. They're not sure about the spine pathology or progosis. No new nutrition labs (ordering). We are referring to the all round butcher/food and nutrition teacher here at the wound care center. Objective Data Objective Data Vital Signs: Vital Signs Temp Pulse Resp BP O2 Del Method 98.8 F 92 18 157/84 H Room Air 03/21/24 15:42 03/21/24 15:42 03/21/24 15:42 03/21/24 15:42 03/21/24 15:42 Oxygen Delivery Method Room Air Weight: 220 lb Body Mass Index (BMI) 35.5 Charges/Coding Procedures Integumentary 111xxx-113xx: [id number] Lillian bone 20 sq cm/< Physical Exam Narrative Right ischial wound Measured 5.3 cm x 5 cm and 4 cm deep. Tunnels 4 cm in the superior 12:00 direction Exposed bone at the base . No fluid collections. Const alert and oriented x3 General Appearance: cooperative Eyes EOMs intact bilaterally Resp normal respiratory effort Cardio regular rate and regular rhythm GI GI Narrative: Diverting ostomy is present Debridement Note Debridement Note Post-Debridement Measurements and Additional Note: Post-Debridement Measurements/Treatment - Nurse 1 - General Ulcer Assessment Start: 03/21/24 15:42 Freq: Status: Active Protocol: KIRA Activity Type Activity Date Activity User E-sign Co-sign Detail Recorded Client Recorded Date Recorded By Document 03/21/24 15:42 [id number] 03/21/24 15:43 03/21/24 15:42 - Today's Visit Information Type of service Follow-up Visit (Physician/[employer] ANIMAL DAMAGE CONTROL AGENT ) Arrival Mode Wheelchair Transfer Assistance Billy Lift Patient Identification Verified (Name & Yes ) Height and Weight Body Mass Index (BMI) 35.5 BMI Classification Obese Vital Signs Temperature (97.8 F-99.1 F) 98.8 F Temperature Source Temporal Pulse Rate (60-100) 92 Pulse Location Monitor Respiratory Rate (12-18) 18 Respiratory rate source Observation Oxygen Delivery Method Room Air Blood Pressure (90/60-120/80) 157/84 H Blood Pressure Mean (mm Hg) 108 Source Monitor Position Sitting Blood Pressure Location Right Arm History Since Last Visit- (Skip if this is Patient's initial visit) Have you changed medications since your No last visit? Any new allergies or adverse reactions No Had a fall/change in ADL's that may No increase risk of falls Signs or symptoms of abuse and/or No neglect since last visit Have you been in the hospital since your No last visit? Has dressing in place as prescribed Yes Has compression in place as prescribed N/A Has offloadiing in place as prescribed N/A Experienced any changes in pain level or No management Pain Scale: 0-10 Numeric Is Patient Pain Free? Yes [facility] Nurse 1 - General Ulcer Measurement Start: 03/21/24 15:42 Freq: Status: Active Protocol: Activity Type Activity Date Activity User E-sign Co-sign Detail Recorded Client Recorded Date Recorded By Document 03/21/24 15:42 [id number] 03/21/24 15:43 03/21/24 15:42 Wound Center Nurse 1 #5- R ischium Post op -Current Size (cm) - Length 6.0 -Current Size (cm) - Width 2.7 -Current Size (cm) - Depth 3.0 -Total Square Cm 16.20 -Date of Last Picture (Recall this 03/21/24 field) -Photo Taken Yes -Epithelialization None Present -Tunneling Yes -Tunneling Position (O'clock) 1 -Tunneling Distance (cm) 7.7 -Circular Undermining No -Exudate Amt Large -Exudate Type Serosanguineous -Wound Margin Distinct, Outline Attached -Granulation Amt Medium (34-66%) -Granulation Quality Red -Slough/Fibrin No -Texture (Michelle-wound Skin Appearance) Assessed -Moisture (Michelle-wound Skin Appearance) Assessed, Maceration -Color (Michelle-wound Skin Appearance) Assessed -Temperature (Michelle-wound Skin No Abnormality Appearance) (Pt Warm) -Ulcer Cleansing Soap and Water -Foul Odor after Cleansing No -Anesthetic Used 5% Lidocaine Gel WC - Nurse 2 - General Ulcer CM Notes Start: 03/21/24 15:42 Freq: Status: Active Protocol: Activity Type Activity Date Activity User E-sign Co-sign Detail Recorded Client Recorded Date Recorded By Document 03/21/24 16:01 [id number] 03/21/24 16:04 03/21/24 16:01 Wound Center Nurse 2 -Time 16:02 -Correct Patient Yes -Correct Side, Site, Position Yes -Correct Procedure Yes -Procedure Performed Yes -Type of Procedure Debridement -Clinical Debridement Bone -Tissue Removed Non-viable tissue -Post Debridement (cm) - Length 5.0 -Post Debridement (cm) - Width 2.5 -Post Debridement (cm) - Depth 7.4 -Total Square (Post) (cm) 12.50 -Area of Debridement (cm) - Length 5.0 -Area of Debridement (cm) - Width 2.5 -Total Square (Area) (cm) 12.50 -Tunneling No -Undermining/Tunneling No -Circular Undermining No -Wound/Ulcer Outcome Not Healed -Ulcer Cleansing Rinsed/ Irrigated with Saline -Foul Odor after Cleansing No -Bioengineered Tissue No -Bleeding Controlled with Pressure -Treatment Response Procedure Tolerated Well -Offloading No -Debridement - Bone, 1st 20sq cm Yes Pain Scale: 0-10 Numeric Is Patient Pain Free? Yes WC - Nurse 3 - General Ulcer D/C NN Start: 03/21/24 15:42 Freq: Status: Active Protocol: Activity Type Activity Date Activity User E-sign Co-sign Detail Recorded Client Recorded Date Recorded By Document 03/21/24 16:33 [id number] 03/21/24 16:33 03/21/24 16:33 Wound Care Center Nurse 3 #5- R ischium Post op -Ulcer Cleansing dakins -Foul Odor after Cleansing No -Primary Dressing Covered/Secured with Dry Gauze, Secured with Tape,Other -Other Covering dakins moist gauze then abd pad Pain Scale: 0-10 Numeric Is Patient Pain Free? Yes WC - Visit Discharge Discharge Condition Stable Ambulatory Status Wheelchair Transportation Private Auto Assessment/Plan Assessment/Plan (1) Right ischial pressure sore: CODE(S): L89.319 - Pressure ulcer of right buttock, unspecified stage (2) Right ischial pressure sore, stage 4: CODE(S): L89.314 - Pressure ulcer of right buttock, stage 4 PLAN: Wound care - Dakin's 0.25% moistened gauze packed into the ulcer twice daily and prn covered with ABD or gauze. Wash the ulcer and michelle wound with soap and water at the time of the dressing change. His has been working on getting the [facility] records about his spine surgery and his prognosis. She states that she was told it was sent and received but nobody in the hospital system has been able to locate his chart. We will continue to try to get these records. Encouraged increased protein intake to help with wound healing. Waiting to hear from the [employer] to see if they can assist them financially for a new low air loss mattress. PLAN FROM 21 Mar 2024: I would like to try the VAC again. Patient and reluctant 2/2 problems with it in the past being so close to gluteal creas e/perineum. For now, agree with continued Dakins. We talked about practicality of falp reconstruction and risks/benefits, and they're unsure of the benefit, especially if risks of failure/need for further wound care are so high and they're required to have strict and uncomfortable positioning restrictions. F/u and re-address in 2 weeks.
--- NOTE | 2024-04-04 10:08 | WC ---
PHOTO 03/21/24 RIGHT ISCHIUM
== END 2024-03-29 23:59 | disposition home or self-care (01) ==
LOC: WC 15:09
PROVIDERS: PCP Family Medicine; Referring Provider Physician Assistant; Visit Provider Nurse Practitioner Family
DX: L89.314 Pressure ulcer of right buttock, stage 4 (principal); Z87.891 Personal history of nicotine dependence
CPT/HCPCS: 11044

== ENCOUNTER 2024-03-24 15:03 | Outpatient (RCR) | payer BC, MEDICARE, SELFPAY ==
[2024-03-24 15:30] LABS: Hematocrit 42.9 % (40-54); Hemoglobin 13.4 g/dL (13.0-16.5); Mean Corp Hgb Conc 31.2 g/dL (32-36); Mean Corpuscular Hgb 28.2 pg (27.0-32.0); Mean Corpuscular Volume 90.1 fL (80-94); Platelet Count 343 K/mm3 (150-450); RBC Distribution Width SD 56.4 fl (35.1-43.9); Red Blood Count 4.76 M/mm3 (4.6-6.2); White Blood Count 5.8 K/mm3 (4.4-11.0)
[2024-03-24 15:37] LABS: ALB/GLOB Ratio 0.7 RATIO (0.9-2.4); AST(SGOT) 23 U/L (15-37); Alanine Aminotransfer ALT/SGPT 38 U/L (16-61); Albumin, Serum 2.8 g/dL (3.2-5.0); Alkaline Phosphatase 141 U/L (45-117); Anion Gap 4 (5-15); BUN 13 mg/dL (7-18); BUN/Creat Ratio 20.9 RATIO (10-20); Calcium,Total 9.2 mg/dL (8.5-10.1); Chloride 106 mmol/L (98-107); Creatinine, Serum 0.62 mg/dL (0.70-1.30); EST Glomerular Filtration Rate 137 mL/min (>60); Est Glom Filt Rate - Afr Amer 165 mL/min (>60); Globulin 4.3 g/dL (2.2-4.2); Glucose 114 mg/dL (74-106); Potassium 4.3 mmol/L (3.5-5.1); Protein, Total 7.1 g/dL (6.4-8.2); Sodium Level 137 mmol/L (136-145)
[2024-03-24 16:17] LABS: Hemoglobin A1c 6.5 % (3.8-5.6)
[2024-03-26 04:06] LABS: Prealbumin 22 mg/dL (10-36)
== END 2024-03-24 18:00 | disposition home or self-care (01) ==
LOC: HHLAB 15:03
PROVIDERS: PCP Family Medicine; Referring Provider Family Medicine; Visit Provider Nurse Practitioner Family
DX: L89.314 Pressure ulcer of right buttock, stage 4 (principal)
CPT/HCPCS: 80053; 83036; 84134; 85027

== ENCOUNTER 2024-04-04 15:36 | Outpatient (RCR) | payer MEDICARE, SELFPAY ==
[2024-03-30 00:12] VITALS: BP 154/105; PULSE 90; RESP 18; TEMP 35.9; BMI 35.5
[2024-04-04 15:44] VITALS: RESP 16; BMI 35.5
--- NOTE | 2024-04-04 16:50 | PCM.WC.PN ---
History of Present Illness Date of Service: 04/04/24 Chief Complaint: Right ischial pressure sore, Stage IV. History of Wound: This is a 68-year-old white male who presented to the wound healing center with complaints of pressure ulcer to right buttock area with extension to the right ischial bone. This started in October,. Patient's was treating with OTC creams and keeping area clean. The ulcer starting increasing in size and went to the Emergency Department on 02/08/22. CT showed subcutaneous and deep soft tissue involvement and possible early abscess formation. The bone was not addressed. The patient has very limited mobility as a result of a prior spine injury/surgery. He utilizes a wheelchair at all times. He has not been using his billy lift at home to transfer but has been using a board to slide himself from his bed to chair at home. He sits in his wheelchair almost all day, not really able to change positions. They finally obtained a low air loss overlay to their regular mattress at home. A roho cushion was ordered for his wheelchair. Patient is a former smoker, he quit early 2023. Surgery 04/28/22 - Excision right ischial pressure sore, Stage IV, with partial ostectomy for osteomyelitis. Size of wound 8 x 7 x 4.5 cm. Operative tissue cultures positive for MSSA and Cutibacterium acnes. Bone cultures positive for MSSA and Corynebacterium striatum. He is being treated with Augmentin. Pathology from surgery 04/28/22 showed chronic reparative and reactive change. No evidence of acute osteomyelitis. He had a diverting colostomy placed on 11/21/[address] Romero. Surgery 08/26/23 - Excision recurrent right ischial pressure sore, Stage IV, with partial ostectomy for osteomyelitis. Discharged home on 08/27/23. Pathology right ischial pressure sore soft tissue showed focal ulceration, acute and chronic inflammation an granulation tissue reaction. Right ischial bone, partial ostectomy showed fragments of bone with chronic inflammation and reactive changes, negative for acute osteomyelitis. Operative soft tissue cultures from 08/26/23 positive for Serratia marcescens, Staphylococcus capitis, and Corynebacterium striatum. Operative bone cultures from 08/26/23 positive for Serratia marcescens and Corynebacterium striatum. He was started on Levaquin and Doxycycline until he can be seen by ID on 11/04/23. Subjective Subjective 07 Dec 2023: Patient and his report that he has been working with a physical therapist since her last appointment (we ordered physical therapy) and she has been to the house twice to work with him on strengthening his lower extremities that he may potentially use a walker. He is meeting with the customer success advocate today at our wound care center after this appointment so as to improve his nutrition in anticipation of potential reconstruction. They have been doing Dakin's wet-to-dry twice daily and he is not having any fevers chills or concerns for infection. Reports that he has been offloading the wound with his bed and positioning changes. We have still not gotten any notes from the spine surgeon at the [facility]. Our team is working on this, and the patient is signed a release. The patient and his do not know the prognosis with regards to his spine and do not have follow-up with this provider at this point. I will review the notes once I have them and then I can discuss this better with the patient and his so they have proper follow up and a better understanding. 21 Mar 2024: Doing well overall. Have been unable to get any of the notes from outside providers. They're not sure about the spine pathology or prognosis. No new nutrition labs (ordering). We are referring to the clothespin machine operator/nutrition services manager here at the wound care center. CURRENT ENCOUNTER, 04 Apr 2024: Nutrition labs reviewed. Albumin 2.8, prealbumin 22. Discussed high protein diet and he's continuing supplementation at home. Patient and his have been thinking about pressure offloading protocol and pressure offloading on the wheelchair. Objective Data Objective Data Vital Signs: Vital Signs Temp Pulse Resp BP O2 Del Method 96.6 F L 90 16 154/105 H Room Air 03/30/24 00:12 03/30/24 00:12 04/04/24 15:44 03/30/24 00:12 04/04/24 15:44 Oxygen Delivery Method Room Air Weight: 220 lb Body Mass Index (BMI) 35.5 Charges/Coding Procedures Integumentary 111xxx-113xx: 43521 Lillian bone 20 sq cm/< Physical Exam Narrative Right ischial wound Measured 4 x 3 cm and 4 cm deep. Tunnels 4 cm in the superior 12:00 direction Exposed bone at the base . No fluid collections. Const alert and oriented x3 General Appearance: cooperative Eyes EOMs intact bilaterally Resp normal respiratory effort Cardio regular rate and regular rhythm GI GI Narrative: Diverting ostomy is present and is productive Debridement Note Debridement Note Wound debrided: Right ischial wound Laterality: Right Type of Debridement: Excisional debridement Anesthesia Used: 4% Lidocaine Solution Depth: to bone Percentage of wound debrided: 100 Instrument Used: 7mm curette Severity: Necrosis of Bone Amount of bleeding with debridement: Moderate Bleeding Controlled with: Compression and gauze Patient tolerated procedure: Patient tolerated procedure well Post-Debridement Measurements and Additional Note: Post-Debridement Measurements/Treatment - Nurse 1 - General Ulcer Assessment Start: 04/04/24 15:44 Freq: Status: Active Protocol: KIRA Activity Type Activity Date Activity User E-sign Co-sign Detail Recorded Client Recorded Date Recorded By Document 04/04/24 15:44 SHAISTA [id number] 04/04/24 15:57 KW 04/04/24 15:44 WC - Today's Visit Information Type of service Follow-up Visit (Physician/ENHANCED ENVIRONMENTAL OPERATOR ) Arrival Mode Wheelchair Transfer Assistance Billy Lift Accompanied by Patient Identification Verified (Name & Yes ) Height and Weight Body Mass Index (BMI) 35.5 BMI Classification Obese Vital Signs Temperature Source Temporal Pulse Location Monitor Respiratory Rate (12-18) 16 Respiratory rate source Observation Oxygen Delivery Method Room Air Source Monitor Position Sitting Blood Pressure Location Left Arm History Since Last Visit- (Skip if this is Patient's initial visit) Have you changed medications since your No last visit? Any new allergies or adverse reactions No Had a fall/change in ADL's that may No increase risk of falls Signs or symptoms of abuse and/or No neglect since last visit Have you been in the hospital since your No last visit? Has dressing in place as prescribed Yes Has compression in place as prescribed N/A Has offloadiing in place as prescribed N/A Experienced any changes in pain level or No management Left Footwear Regular Shoe Right Footwear Regular Shoe Pain Scale: 0-10 Numeric Is Patient Pain Free? Yes Aydin Nurse 1 - General Ulcer Measurement Start: 04/04/24 15:44 Freq: Status: Active Protocol: Activity Type Activity Date Activity User E-sign Co-sign Detail Recorded Client Recorded Date Recorded By Document 04/04/24 15:44 KW [id number] 04/04/24 15:57 KW 04/04/24 15:44 Wound Center Nurse 1 #5- R ischium Post op -Current Size (cm) - Length 5 -Current Size (cm) - Width 4 -Current Size (cm) - Depth 4.6 -Total Square Cm 20 -Undermining/Tunneling Yes -Undermining/Tunneling Starts (O'clock 12 ) -Undermining/Tunneling Ends (O'clock) 3 -Maximum Distance (cm) 8 -Exudate Amt Medium -Exudate Type Serosanguineous -Wound Margin Distinct, Outline Attached -Granulation Amt Medium (34-66%) -Granulation Quality Red -Necrosis Amt Medium (34-66%) -Moisture (Michelle-wound Skin Appearance) Maceration -Temperature (Michelle-wound Skin No Abnormality Appearance) (Pt Warm) -Tenderness on Palpation (Michelle-wound No Skin Appearance) -Ulcer Cleansing Soap and Water -Foul Odor after Cleansing No -Anesthetic Used 4% Lidocaine Solution WC - Nurse 2 - General Ulcer CM Notes Start: 04/04/24 15:44 Freq: Status: Active Protocol: Activity Type Activity Date Activity User E-sign Co-sign Detail Recorded Client Recorded Date Recorded By Document 04/04/24 16:06 JF [id number] 04/04/24 16:09 JF 04/04/24 16:06 Wound Center Nurse 2 -Time 16:06 -Correct Patient Yes -Correct Side, Site, Position Yes -Correct Procedure Yes -Procedure Performed Yes -Type of Procedure Debridement -Clinical Debridement Bone -Tissue Removed Non-viable tissue -Post Debridement (cm) - Length 4 -Post Debridement (cm) - Width 3 -Post Debridement (cm) - Depth 4 -Total Square (Post) (cm) 12 -Area of Debridement (cm) - Length 4 -Area of Debridement (cm) - Width 3 -Total Square (Area) (cm) 12 -Tunneling Yes -Tunneling Distance (cm) 12 -Tunneling Position #2 (O'clock) 4 -Undermining/Tunneling No -Circular Undermining No -Wound/Ulcer Outcome Not Healed -Ulcer Cleansing Rinsed/ Irrigated with Saline -Foul Odor after Cleansing No -Bioengineered Tissue No -Bleeding Controlled with Pressure -Treatment Response Procedure Tolerated Well -Offloading No -Debridement - Bone, 1st 20sq cm Yes Pain Scale: 0-10 Numeric Is Patient Pain Free? Yes Assessment/Plan Assessment/Plan (1) Right ischial pressure sore: CODE(S): L89.319 - Pressure ulcer of right buttock, unspecified stage (2) Right ischial pressure sore, stage 4: CODE(S): L89.314 - Pressure ulcer of right buttock, stage 4 PLAN: Wound care - Dakin's 0.25% moistened gauze packed into the ulcer twice daily and prn covered with ABD or gauze. Wash the ulcer and michelle wound with soap and water at the time of the dressing change. His has been working on getting the [facility] records about his spine surgery and his prognosis. She states that she was told it was sent and received but nobody in the hospital system has been able to locate his chart. We will continue to try to get these records. Encouraged increased protein intake to help with wound healing. Waiting to hear from the [facility] to see if they can assist them financially for a new low air loss mattress. PLAN FROM 21 Mar 2024: I would like to try the VAC again. Patient and reluctant 2/2 problems with it in the past being so close to gluteal crease/perineum. For now, agree with continued Dakins. We talked about practicality of falp reconstruction and risks/benefits, and they're unsure of the benefit, especially if risks of failure/need for further wound care are so high and they're required to have strict and uncomfortable positioning restrictions. F/u and re-address in 2 weeks. PLAN FROM 04 Apr 2024: would not like to do wound vac. Reports that it causes too many problems with leaking, ect. They're going to consider options for reconstruction, but are concerned about post-operative rehab and pressure offloading (practicality of not being able to be in a wheelchair). Mrs. Covington is going to call me and discuss further after she and her have discussed more.
== END 2024-04-29 23:59 | disposition home or self-care (01) ==
LOC: WC 15:36
PROVIDERS: PCP Family Medicine; Referring Provider Physician Assistant; Visit Provider Nurse Practitioner Family
DX: L89.314 Pressure ulcer of right buttock, stage 4 (principal); Z87.891 Personal history of nicotine dependence; Z99.3 Dependence on wheelchair
CPT/HCPCS: 11044

== ENCOUNTER 2024-05-02 14:52 | Outpatient (RCR) | payer MEDICARE, SELFPAY ==
[2024-04-30 00:37] VITALS: BP 154/105; PULSE 90; RESP 16; TEMP 35.9; BMI 35.5
[2024-05-02 14:54] VITALS: BP 110/59; PULSE 89; RESP 18; TEMP 36.9; BMI 35.5
--- NOTE | 2024-05-03 07:34 | PN.PCM_ITS ---
History of Present Illness Date of Service: 05/02/24 Chief Complaint: Right ischial pressure sore, Stage IV. History of Wound: This is a 68-year-old white male who presented to the wound healing center with complaints of pressure ulcer to right buttock area with extension to the right ischial bone. This started in October,. Patient's was treating with OTC creams and keeping area clean. The ulcer starting increasing in size and went to the Emergency Department on 02/08/22. CT showed subcutaneous and deep soft tissue involvement and possible early abscess formation. The bone was not addressed. The patient has very limited mobility as a result of a prior spine injury/surgery. He utilizes a wheelchair at all times. He has not been using his billy lift at home to transfer but has been using a board to slide himself from his bed to chair at home. He sits in his wheelchair almost all day, not really able to change positions. They finally obtained a low air loss overlay to their regular mattress at home. A roho cushion was ordered for his wheelchair. Patient is a former smoker, he quit early 2023. Surgery 04/28/22 - Excision right ischial pressure sore, Stage IV, with partial ostectomy for osteomyelitis. Size of wound 8 x 7 x 4.5 cm. Operative tissue cultures positive for MSSA and Cutibacterium acnes. Bone cultures positive for MSSA and Corynebacterium striatum. He is being treated with Augmentin. Pathology from surgery 04/28/22 showed chronic reparative and reactive change. No evidence of acute osteomyelitis. He had a diverting colostomy placed on 11/21/[address] Romero. Surgery 08/26/23 - Excision recurrent right ischial pressure sore, Stage IV, with partial ostectomy for osteomyelitis. Discharged home on 08/27/23. Pathology right ischial pressure sore soft tissue showed focal ulceration, acute and chronic inflammation an granulation tissue reaction. Right ischial bone, partial ostectomy showed fragments of bone with chronic inflammation and reactive changes, negative for acute osteomyelitis. Operative soft tissue cultures from 08/26/23 positive for Serratia marcescens, Staphylococcus capitis, and Corynebacterium striatum. Operative bone cultures from 08/26/23 positive for Serratia marcescens and Corynebacterium striatum. He was started on Levaquin and Doxycycline until he can be seen by ID on 11/04/23. Subjective Subjective 07 Dec 2023: Patient and his report that he has been working with a physical therapist since her last appointment (we ordered physical therapy) and she has been to the house twice to work with him on strengthening his lower extremities that he may potentially use a walker. He is meeting with the supervisor crack off today at our wound care center after this appointment so as to improve his nutrition in anticipation of potential reconstruction. They have been doing Dakin's wet-to-dry twice daily and he is not having any fevers chills or concerns for infection. Reports that he has been offloading the wound with his bed and positioning changes. We have still not gotten any notes from the spine surgeon at the [facility]. Our team is working on this, and the patient is signed a release. The patient and his do not know the prognosis with regards to his spine and do not have follow-up with this provider at this point. I will review the notes once I have them and then I can discuss this better with the patient and his so they have proper follow up and a better understanding. 21 Mar 2024: Doing well overall. Have been unable to get any of the notes from outside providers. They're not sure about the spine pathology or prognosis. No new nutrition labs (ordering). We are referring to the engineering technology instructor/animal nutrition teacher here at the wound care center. 04 Apr 2024: Nutrition labs reviewed. Albumin 2.8, prealbumin 22. Discussed high protein diet and he's continuing supplementation at home. Patient and his have been thinking about pressure offloading protocol and pressure offloading on the wheelchair. CURRENT ENCOUNTER, 02 May 2024: Discussed possibilities of flap reconstruction and he and his do not think it is a good idea at this time as they would have trouble with pressure offloading and trouble with not using the wheelchair and with placement in rehab. They would like continued local wound care at this time. Otherwise no changes no fevers or chills Objective Data Objective Data Vital Signs: Vital Signs Temp Pulse Resp BP 98.5 F 89 18 110/59 L 05/02/24 14:54 05/02/24 14:54 05/02/24 14:54 05/02/24 14:54 Weight: 218 lb 14.704 oz Body Mass Index (BMI) 35.5 Charges/Coding Procedures Integumentary 111xxx-113xx: 07765 Lillian bone 20 sq cm/< Physical Exam Narrative Right ischial wound Measured 3 x 3 cm and 3 cm deep. Exposed bone at the base . No fluid collections. Surrounding skin appears heal thy Const alert and oriented x3 General Appearance: cooperative Eyes EOMs intact bilaterally Resp normal respiratory effort Cardio regular rate and regular rhythm GI GI Narrative: Diverting ostomy is present and is productive Debridement Note Debridement Note Wound debrided: Right ischial pressure sore Laterality: Right Wound Grade/Stage: 4 Type of Debridement: Excisional debridement Anesthesia Used: 4% Lidocaine Solution Depth: to bone Percentage of wound debrided: 100 Instrument Used: 7mm curette Severity: Necrosis of Bone Amount of bleeding with debridement: Moderate Bleeding Controlled with: Compression and gauze Patient tolerated procedure: Patient tolerated procedure well Post-Debridement Measurements and Additional Note: Post-Debridement Measurements/Treatment WC - Nurse 1 - General Ulcer Assessment Start: 05/02/24 14:54 Freq: Status: Active Protocol: KIRA Activity Type Activity Date Activity User E-sign Co-sign Detail Recorded Client Recorded Date Recorded By Document 05/02/24 14:54 DL [id number] 05/02/24 15:06 DL 05/02/24 14:54 WC - Today's Visit Information Type of service Follow-up Visit (Physician/ROOF FIXER ) Arrival Mode Wheelchair Transfer Assistance Billy Lift Patient Identification Verified (Name & No ) Patient Requires Transmission-Based Yes Precautions Safety Precautions Fall Prevention Height and Weight Body Mass Index (BMI) 35.5 BMI Classification Obese Vital Signs Temperature (97.8 F-99.1 F) 98.5 F Temperature Source Temporal Pulse Rate (60-100) 89 Pulse Location Monitor Respiratory Rate (12-18) 18 Respiratory rate source Observation Blood Pressure (90/60-120/80) 110/59 L Blood Pressure Mean (mm Hg) 76 Source Monitor History Since Last Visit- (Skip if this is Patient's initial visit) Have you changed medications since your No last visit? Any new allergies or adverse reactions No Had a fall/change in ADL's that may No increase risk of falls Signs or symptoms of abuse and/or No neglect since last visit Have you been in the hospital since your No last visit? Has dressing in place as prescribed Yes Has compression in place as prescribed N/A Has offloadiing in place as prescribed Yes Experienced any changes in pain level or No management Pain Scale: 0-10 Numeric Is Patient Pain Free? Yes WC - Nurse 1 - General Ulcer Measurement Start: 05/02/24 14:54 Freq: Status: Active Protocol: Activity Type Activity Date Activity User E-sign Co-sign Detail Recorded Client Recorded Date Recorded By Document 05/02/24 14:54 ARVIN [id number] 05/02/24 15:06 DL 05/02/24 14:54 Wound Center Nurse 1 #5- R ischium Post op -Current Size (cm) - Length 4.2 -Current Size (cm) - Width 4 -Current Size (cm) - Depth 4.5 -Total Square Cm 16.8 -Photo Taken Yes -Tunneling Position (O'clock) 12 -Tunneling Distance (cm) 7 -Exudate Amt Medium -Exudate Type Serosanguineous -Wound Margin Thickened & Rolled Under -Granulation Amt Large (67-100%) -Granulation Quality Red -Necrosis Amt None Present (0 %) -Structure Exposed N/A -Texture (Michelle-wound Skin Appearance) Scarring -Moisture (Michelle-wound Skin Appearance) Maceration -Color (Michelle-wound Skin Appearance) No Abnormality -Temperature (Michelle-wound Skin No Abnormality Appearance) (Pt Warm) -Ulcer Cleansing Soap and Water -Foul Odor after Cleansing No -Anesthetic Used 4% Lidocaine Solution DILCIA - Nurse 2 - General Ulcer CM Notes Start: 05/02/24 14:54 Freq: Status: Active Protocol: Activity Type Activity Date Activity User E-sign Co-sign Detail Recorded Client Recorded Date Recorded By Document 05/02/24 16:00 ESTER [id number] 05/02/24 16:09 JF 05/02/24 16:00 Wound Center Nurse 2 -Time 16:08 -Correct Patient Yes -Correct Side, Site, Position Yes -Correct Procedure Yes -Procedure Performed Yes -Type of Procedure Debridement -Clinical Debridement Bone -Tissue Removed Non-viable tissue -Post Debridement (cm) - Length 3 -Post Debridement (cm) - Width 3 -Post Debridement (cm) - Depth 3 -Total Square (Post) (cm) 9 -Area of Debridement (cm) - Length 3 -Area of Debridement (cm) - Width 3 -Total Square (Area) (cm) 9 -Tunneling No -Undermining/Tunneling No -Circular Undermining No -Wound/Ulcer Outcome Not Healed -Ulcer Cleansing Rinsed/ Irrigated with Saline -Foul Odor after Cleansing No -Bioengineered Tissue No -Bleeding Controlled with Pressure -Treatment Response Procedure Tolerated Well -Offloading No -Pressure Reduction Wheelchair cushion -Debridement - Bone, 1st 20sq cm Yes Pain Scale: 0-10 Numeric Is Patient Pain Free? Yes - Nurse 3 - General Ulcer D/C NN Start: 05/02/24 14:54 Freq: Status: Active Protocol: Activity Type Activity Date Activity User E-sign Co-sign Detail Recorded Client Recorded Date Recorded By Document 05/02/24 16:16 KW [id number] 05/02/24 16:16 KW 05/02/24 16:16 Wound Care Center Nurse 3 #5- R ischium Post op -Other Dressing dakins soaked gauze -Primary Dressing Covered/Secured with Dry Gauze, Secured with Tape Pain Scale: 0-10 Numeric Is Patient Pain Free? Yes WC - Visit Discharge Discharge Condition Stable Ambulatory Status Wheelchair Transportation Private Auto Medication Reconcilliation completed & No provided to patient/care provider Clinical Summary of Care Provided Yes Assessment/Plan Assessment/Plan (1) Right ischial pressure sore: CODE(S): L89.319 - Pressure ulcer of right buttock, unspecified stage (2) Right ischial pressure sore, stage 4: CODE(S): L89.314 - Pressure ulcer of right buttock, stage 4 PLAN: Wound care - Dakin's 0.25% moistened gauze packed into the ulcer twice daily and prn covered with ABD or gauze. Wash the ulcer and michelle wound with soap and water at the time of the dressing change. His has been working on getting the [facility] records about his spine surgery and his prognosis. She states that she was told it was sent and received but nobody in the hospital system has been able to locate his chart. We will continue to try to get these records. Encouraged increased protein intake to help with wound healing. Waiting to hear from the [employer] to see if they can assist them financially for a new low air loss mattress. PLAN FROM 21 Mar 2024: I would like to try the VAC again. Patient and reluctant 2/2 problems with it in the past being so close to gluteal crease/perineum. For now, agree with continued Dakins. We talked about practicality of falp reconstruction and risks/benefits, and they're unsure of the benefit, especially if risks of failure/need for further wound care are so high and they're required to have strict and uncomfortable positioning r estrictions. F/u and re-address in 2 weeks. 04 Apr 2024: would not like to do wound vac. Reports that it causes too many problems with leaking, ect. They're going to consider options for reconstruction, but are concerned about post-operative rehab and pressure offloading (practicality of not being able to be in a wheelchair). Mrs. Covington is going to call me and discuss further after she and her have discussed more. PLAN FROM 02 May 2024: After thorough discussion of options for potential reconstruction, and Mrs. Covington would like to defer reconstruction at this time and continue local wound care regimen. Follow-up in 2 weeks for wound check. Continue current regimen.
== END 2024-05-27 23:59 | disposition home or self-care (01) ==
LOC: WC 14:52
PROVIDERS: PCP Family Medicine; Referring Provider Physician Assistant; Visit Provider Nurse Practitioner Family
DX: L89.314 Pressure ulcer of right buttock, stage 4 (principal); Z93.3 Colostomy status; Z99.3 Dependence on wheelchair; Z79.890 Hormone replacement therapy; Z79.899 Other long term (current) drug therapy; Z87.891 Personal history of nicotine dependence; Z87.39 Personal history of other diseases of the musculoskeletal system and connective tissue
CPT/HCPCS: 11044; 97803

== ENCOUNTER 2024-06-09 08:59 | Observation (INO) | payer MEDICARE, SELFPAY ==
[2024-06-09] VITALS (13 sets, daily range): BP systolic 98–142; BP diastolic 57–107; PULSE 84–112; RESP 16–22; TEMP 36.8–38.9; O2SAT 91–100; BMI 35.3; BMI 34.4
--- NOTE | 2024-06-09 09:12 | RAD_ITS ---
PROCEDURE: CHEST PA AND LATERAL REASON FOR EXAM: TACHYPNEA TECHNIQUE: AP and lateral views were obtained. COMPARISON: Comparison is made with prior study dated February 08, 2022. FINDINGS: EKG electrodes are seen. Stable scarring at the right lung apex as well as bibasilar scarring. Stable examination. Degenerative changes of the thoracic spine. Prior fusion of the lower cervical spine. RAD/Chest PA and Lateral IMPRESSION: Stable mild increased markings at the lung bases suggestive of scarring. Right apical scarring. Reading Location: [id number]
--- NOTE | 2024-06-09 09:12 | EX.ED.DYSGE1 ---
HPI History of Present Illness Chief Complaint: Shortness of Breath Detail of Chief Complaint: Squad was called for lift assist. He was noted to be hypoxic, febrile, tac Informant: patient and EMS Onset/Context/Timing Onset: Today Context: Sudden Onset Timing: Intermittent Quality: Called for lift assist Location: Presents from home Current Severity: Not applicable Maximum Severity: Not applicable Worsened by: Patient has been bedridden since 1984 Relieved by: Not applicable Associated Symptoms Associated Symptoms: Per squad febrile, tachycardic and tachypneic with a low pulse ox Narrative Narrative: Patient is a 68-year-old male. He is paraplegic due to spinal paralysis. He has been bedridden since 1984. He has a nonhealing ulcer right buttocks near the gluteal crease. He states his looked at the wound earlier this morning. He was last seen at the wound center on Thursday. He was a smoker until 1 year ago. Squad documented temperature of 101.3, pulse ox of 80% on room air, tachycardia and tachypnea and reason they transported him. Patient denied history of COPD however there is a past history of Scaled Inference that he has history of COPD. He states he is not normally on oxygen. Patient denies fever or chills. He denies headache, visual, ocular auditory symptoms. He denies rhinorrhea, congestion postnasal drainage sore throat. He denies cough. He denies chest discomfort. Patient Nuys abdominal pain, nausea, vomiting or diarrhea. Patient denies dysuria, frequency, urgency or hematuria. This is not surprising since pain has an indwelling Benson. Prior similar symptoms: Yes Recent Illness/Hospitalization: No PFSH [facility] Medical History Other acute postprocedural pain Paraplegic spinal paralysis History of pressure ulcer Wears glasses Thyroid disease Arthritis Uses wheelchair High cholesterol Gastric reflux COPD (chronic obstructive pulmonary disease) Hx of fracture of arm Hx of head injury Bedridden Smoker Right ischial pressure sore, stage 4 Home Medications ?Medication ?Instructions ?Recorded ?Last Taken ?Type baclofen 10 mg tablet 15 mg PO TID spasm 12/17/17 06/09/24 History levothyroxine 125 mcg tablet 125 mcg PO DAILY 12/17/17 06/09/24 History tamsulosin 0.4 mg capsule 0.4 mg PO BID 12/17/17 06/09/24 History icosapent ethyl 1 gram capsule 2 g PO BID cholesterol 02/08/22 06/09/24 History (Vascepa) acetaminophen 650 mg 1,300 mg PO Q8H PRN Pain 04/25/22 Unknown History tablet,extended release esomeprazole magnesium 40 mg 40 mg PO DAILY 06/16/22 06/09/24 History capsule,delayed release (Nexium) Allergy/AdvReac Type Severity Reaction Status Date / Time Environmental Allergies: Allergy NEEDS Verified 06/03/24 14:20 Uncoded (dust) FOLLOW-UP house dust Allergy Other Verified 06/03/24 14:20 pollen extracts Allergy NEEDS Verified 06/03/24 14:20 FOLLOW-UP Surgical History S/P colostomy History of back surgery Hx of neck surgery Hx of spinal surgery Social History Smoking Status: Former smoker ROS ROS ED Constitutional Constitutional ED: Denies chills, fever(s), subjective or sweats Eyes Eyes: Denies blurry vision or change in vision ENT ENT ED: Denies ear pain, rhinorrhea or sore throat Cardiovascular Cardiovascular: Denies chest pain, orthopnea or palpitations Respiratory/Chest Respiratory/Chest: Denies cough, dyspnea, dyspnea on exertion or orthopnea Gastrointestinal Gastrointestinal: Denies abdominal pain, diarrhea, nausea or vomiting Genitourinary Genitourinary ED: Reports other Details: Patient has an indwelling Benson. Musculoskeletal Musculoskeletal: Denies arthralgias or myalgias Integumentary Reports other Details: Decubitus ulcer down to muscle right medial superior buttocks area. Neurologic Neurologic: Reports weakness; Denies headache(s) or paresthesias Hematologic/Lymphatic Hematologic/Lymphatic: Reports systems reviewed and no addt'l complaints, except as documented EXAM Physical Exam Const Vital Signs: 06/09/24 09:00 06/09/24 09:05 06/09/24 09:15 Temperature 98.8 F 102.0 F H Temperature Source Oral Axillary Pulse Rate 112 H Respiratory Rate 22 H Respiratory Effort Short of Breath Respiratory Depth Shallow Respiratory Pattern Normal Blood Pressure 125/57 H Blood Pressure Mean 79 Pulse Ox 93 Oxygen Delivery Method Room Air Room Air Oxygen Flow Rate (L/min) 06/09/24 10:05 06/09/24 11:00 Temperature 100.1 F H 98.9 F Temperature Source Axillary Oral Pulse Rate 101 H 103 H Respiratory Rate 21 H 19 H Respiratory Effort Respiratory Depth Respiratory Pattern Blood Pressure 128/67 H 132/66 H Blood Pressure Mean 87 88 Pulse Ox 100 98 Oxygen Delivery Method Nasal Cannula Oxygen Flow Rate (L/min) 2 2 Positive well nourished and well developed Constitutional Narrative: BMI is 35.3. Patient is tachypneic. General Appearance ED: well developed and pallor; Negative for cyanotic, diaphoretic or NAD HEENT Reports TM's clear and dry mucous membranes Negative for trauma or tenderness Tympanic Membrane ED: Yes TM's clear Mouth ED: Yes dry mucous membranes Mouth: dry mucous membranes Eyes PERRL and EOMs intact bilaterally General Eye ED: Negative for pale conjunctiva or scleral icterus Neck no lymphadenopathy, supple and no JVD Neck Narrative: Attempt to assess for JVD is difficult due to body habitus. Chest Wall inspection of chest normal and palpation of chest normal Resp normal respiratory effort and clear to auscultation bilaterally Cardio regular rhythm, S1 normal heart sound, S2 normal heart sound and no murmurs Rate: tachycardic GI normal to inspection, nondistended, normoactive bowel sounds, non-tender, non-distended and no masses; Negative for hepatosplenomegaly Narrative: Patient has indwelling Benson. Back/Spine no CVA tenderness Extremity Negative for normal to inspection Extremity Narrative: Patient has braces on his lower extremities due to his paraplegia. There is no asymmetry, discoloration, leg vein distention, palpable cords tenderness on the distribution deep venous system. Neuro oriented x3 and CN's II-XII intact bilaterally Neuro Narrative: Patient is awake but not alert. Sensorium / Orientation: Negative for alert Psych mental status grossly normal Skin Skin Narrative: Patient has a wound right buttocks. There is a fresh gauze noted in it. The wound is healing by secondary intention with granulation tissue noted. There is no discharge. There is no odor. There is slight erythema without warmth or induration. There is no fluctuance. General Skin Exam: pallor Sepsis Attestation Sepsis Alert: Yes Sepsis Attestation: Agree w/Sepsis Date exam was performed: 06/09/24 Time exam was performed: 09:20 (Patient has tachycardia, tachypnea and repeat temperature is 102.0. In light of this blood cultures and lactate were ordered. There is no obvious source at this time. Once source has been identified will treat with appropriate antibiotics.) Possible Source of Sepsis: Genitourinary Sepsis Organ Dysfunction Criteria Present: Lactic Acid > 2 mmol/L MDM MDM MDM Narrative Medical decision making narrative: Initial vitals reveal tachycardia and tachypnea. He had a normal temperature. Wound is repeated since he felt warmer than document temperature I was informed at 0915 that it is 102.0 ?F. Blood cultures were added as well as lactate. Source does not appear to be his decubitus ulcer right buttocks. Clinically he does not have pneumonia. His pulse ox is 93 on room air. His urine is turbid which may be due to chronic indwelling Benson. This could be his source. Patient does meet criteria for SIRS. Will obtain appropriate blood work to assess for sepsis and endorgan dysfunction. History & Record Review Additional record(s) reviewed:: Prior ED visit and Prior labs Lab Data Attestation: I reviewed the patient's lab results. Lab results narrative: White count is elevated 18.5 thousand. Patient does have a shift with no bandemia. Comprehensive metabolic panel is unremarkable. Alkaline phosphatase slightly elevated 137. Urine appears to be the source with greater than 100 WBCs and 2+ bacteria. Macro was positive for leukoesterase nitrites as well as occult blood. There is also proteinuria noted. Lactate is elevated at 2.8. Labs: Laboratory Results - last 24 hr 06/09/24 06/09/24 06/09/24 09:10 09:25 09:31 WBC 18.5 H RBC 4.73 Hgb 13.6 Hct 41.3 MCV 87.3 MCH 28.8 MCHC 32.9 RDW Std Deviation 52.9 H RDW Coeff of Josue 16.5 H Plt Count 310 MPV 9.3 Immature Gran % (Auto) 0.700 Neut % (Auto) 85.9 H Lymph % (Auto) 5.6 L [place] % (Auto) 6.9 Eos % (Auto) 0.4 Baso % (Auto) 0.5 Absolute Neuts (auto) 15.9 H Absolute Lymphs (auto) 1.04 Nucleated RBC % 0 Sodium 138 Potassium 4.1 Chloride 103 Carbon Dioxide 22.0 Anion Gap 13 BUN 10 Creatinine 0.67 L Estim Creat Clear Calc 98.85 Est GFR (MDRD) Non-Af 102 BUN/Creatinine Ratio 15.6 Glucose 149 H Lactic Acid 2.8 H* Calcium 9.3 Total Bilirubin 0.29 AST 25 ALT 21 Alkaline Phosphatase 137 H Total Protein 7.3 Albumin 3.6 Globulin 3.7 Albumin/Globulin Ratio 1.0 Urine Color Yellow Urine Clarity Cloudy Urine pH 7.0 Ur Specific [place] 1.010 Urine Protein 30 H Urine Glucose (UA) Normal Urine Ketones Negative Urine Occult Blood 150 H Urine Nitrite Positive H Urine Bilirubin Negative Urine Urobilinogen Normal Ur Leukocyte Esterase 500 H Urine RBC 0-5 SEEN Urine WBC >100 SEEN Ur Squamous Epith Cells 0 SEEN Amorphous Sediment 1+ Urine Bacteria 2+ Urine Mucus 0 SEEN Radiography Chest X-Ray - ED: 2 View, Read by ED Physician, Unchanged, Normal, Heart, Mediastinum, Chronic Changes and - (There is no effusion. Suboptimal due to rotation and limited inspiration. There is family reviewed interpreted by me at 1036.) Diagnostic Testing: Clinical Impression(s) from Imaging Studies Chest X-Ray 06/09/24 09:12 IMPRESSION: Stable mild increased markings at the lung bases suggestive of scarring. Right apical scarring. Reading Location: [facility] Management Discussion w/another healthcare provider: Hospitalist (Spoke with Dr. Shaw. She will see patient in the ER. Full admit PCU) Treatment and Re-Evaluation :: Since there is concern patient has sepsis and source is either respiratory or urologic patient received 2 g of Rocephin which will cover both respiratory and urologic pathogens. If it is pneumonia we will add azithromycin for atypical coverage since she presents from home. Comments:: [place] was asked to page the hospitalist at [phone]. Discharge Plan Dx/Rx/DC Orders Clinical Impression: Complicated urinary tract infection, Bedridden, Paraplegic spinal paralysis, Colostomy in place, Hyperlipidemia, Spinal cord injury, SIRS (systemic inflammatory response syndrome), Leukocytosis, Decubitus ulcer of right buttock, stage 3, Acidosis, lactic Disposition Disposition: Acute Care [facility]
[2024-06-09 09:18] LABS: Absolute Lymphocyte Count 1.04 X10^3/uL (0.83-4.51); Absolute Neutrophil Count 15.9 X10^3/uL (2.0-7.7); Basophil# 0.09 X10^3/uL; Basophil% 0.5 % (0-1); Eosinophil# 0.07 X10^3/uL; Eosinophils% 0.4 % (0-5); Hematocrit 41.3 % (40-54); Hemoglobin 13.6 g/dL (13.0-16.5); Lymphocyte # 1.04 X10^3/ul (0.83-4.51); Lymphocyte % 5.6 % (19-41); Mean Corp Hgb Conc 32.9 g/dL (32-36); Mean Corpuscular Hgb 28.8 pg (27.0-32.0); Mean Corpuscular Volume 87.3 fL (80-94); Mean Platelet Vol. 9.3 fl (6.2-12.0); Monocyte# 1.27 X10^3/uL; Monocyte% 6.9 % (0-10); NRBC Flagged by Analyzer 0 % (0-5); Neutrophil # 15.92 X10^3/uL (2.7-7.7); Neutrophil % 85.9 % (47-70); Platelet Count 310 K/mm3 (150-450); RBC Distribution Width CV 16.5 % (11.6-14.6); RBC Distribution Width SD 52.9 fl (35.1-43.9); Red Blood Count 4.73 M/mm3 (4.6-6.2); White Blood Count 18.5 K/mm3 (4.4-11.0)
[2024-06-09 09:50] LABS: Mucous, Urine 0 SEEN /hpf (<or=2+)
[2024-06-09 09:52] LABS: Color, Urine Yellow (Yellow); Glucose, Dipstick Normal (Normal); Ketone-Dipstick Negative (Negative); Leukocyte Esterase-Dipstick 500 /ul (Negative); Nitrite-Dipstick Positive (Negative); Occult Blood-Urine 150 /ul (Negative); Protein-Dipstick 30 mg/dl (Negative); Urine Bilirubin Dipstick Negative (Negative); Urine Clarity Cloudy (Clear); Urine Urobilinogen Normal (Normal)
[2024-06-09 09:54] LABS: AST(SGOT) 25 U/L (<=37); Alanine Aminotransfer ALT/SGPT 21 U/L (<=46); Albumin, Serum 3.6 g/dL (3.4-4.8); Alkaline Phosphatase 137 U/L (40-129); Anion Gap 13 (5-15); BUN 10 mg/dL (4-19); BUN/Creat Ratio 15.6 RATIO (10-20); Calcium,Total 9.3 mg/dL (7.6-11.0); Chloride 103 mmol/L (98-108); Creatinine, Serum 0.67 mg/dL (0.70-1.20); EST Glomerular Filtration Rate 102 (>60); Estimated Creatinine Clearance 98.85 ml/min (50-250); Globulin 3.7 g/dL (2.2-4.2); Glucose 149 mg/dL (70-99); Potassium 4.1 mmol/L (3.3-5.1); Protein, Total 7.3 g/dL (5.9-8.4); Sodium Level 138 mmol/L (133-145); Total Bilirubin 0.29 mg/dL (0.00-1.30)
[2024-06-09 09:58] LABS: Amorphous Sediment 1+
[2024-06-09 09:59] LABS: White Blood Cells >100 SEEN /hpf (0-5)
[2024-06-09 10:02] LABS: Bacteria 2+ /hpf (None Seen); Red Blood Cells-Urine 0-5 SEEN /hpf (0-5); Squamous Epithelial Cells - UA 0 SEEN /hpf (0-5)
[2024-06-09] MEDS: Ceftriaxone 2 GM in 0.9% Normal Saline (50mL MB+) 50 ML IV (10:12)
--- NOTE | 2024-06-09 11:15 | ED.RN ---
Critical Lactic of 2.[address] Saavedra notified.
[2024-06-09 11:16] LABS: Lactic Acid 2.8 mmol/L (0.0-2.0)
--- NOTE | 2024-06-09 12:06 | PCM.HP.STD ---
HPI - General General Date of Admission: 06/09/24 Date of Service: 06/09/24 Chief Complaint: Fever HPI Narrative JORGE LINDSEY, is a 68 M with history of paraplegia, COPD, hypothyroidism, chronic indwelling Benson who presented [facility] ED 06/09/2024 with 1 day of weakness, diarrhea and fever. Ultimately he called EMS today because he was too weak to transfer with his wheelchair. EMS reported patient was hypoxic and put him on nasal cannula, he was also febrile, on arrival to the ED patient with temperature of 102, heart rate 112 with blood pressure 125/57, lactic acid 2.8, respiratory rate 22 and patient 93% on room air. White blood cell count 18 and UA suggestive of UTI, patient started on antibiotics and hospitalist contacted for admission. Patient evaluated at bedside, reports that since yesterday he had a temperature spike to 101, has been diffusely weak, also had some diarrhea but otherwise grider negative ROS. [facility] Medical History Other acute postprocedural pain Paraplegic spinal paralysis History of pressure ulcer Wears glasses Thyroid disease Arthritis Uses wheelchair High cholesterol Gastric reflux COPD (chronic obstructive pulmonary disease) Hx of fracture of arm Hx of head injury Bedridden Smoker Right ischial pressure sore, stage 4 Home Medications ?Medication ?Instructions ?Recorded ?Last Taken ?Type baclofen 10 mg tablet 15 mg PO TID spasm 12/17/17 06/09/24 History levothyroxine 125 mcg tablet 125 mcg PO DAILY 12/17/17 06/09/24 History tamsulosin 0.4 mg capsule 0.4 mg PO BID 12/17/17 06/09/24 History icosapent ethyl 1 gram capsule 2 g PO BID cholesterol 02/08/22 06/09/24 History (Vascepa) acetaminophen 650 mg 1,300 mg PO Q8H PRN Pain 04/25/22 Unknown History tablet,extended release esomeprazole magnesium 40 mg 40 mg PO DAILY 06/16/22 06/09/24 History capsule,delayed release (Nexium) Allergy/AdvReac Type Severity Reaction Status Date / Time Environmental Allergies: Allergy NEEDS Verified 06/03/24 14:20 Uncoded (dust) FOLLOW-UP house dust Allergy Other Verified 06/03/24 14:20 pollen extracts Allergy NEEDS Verified 06/03/24 14:20 FOLLOW-UP Surgical History S/P colostomy History of back surgery Hx of neck surgery Hx of spinal surgery Social History Smoking Status: Former smoker ROS ROS Narrative General: Fever for 1 day HENT: Denies headache, denies stuffy nose, denies sore throat EYES: Denies changes in vision Resp: Denies cough, denies shortness of breath Cardiac: Denies chest pain GI: Denies abdominal pain, had some loose stools, denies nausea/vomiting : Chronic indwelling Benson Extremity: Denies swelling MSK: Cannot walk chronically, generalized weakness Neuro: Denies any new numbness/tingling Heme: Denies any bleeding or bruising Skin: Denies rashes Psychiatric: No complaints voiced Vital Signs Vital Signs Vital Signs: 06/09/24 09:00 06/09/24 09:05 06/09/24 09:15 Temperature 98.8 F 102.0 F H Temperature Source Oral Axillary Pulse Rate 112 H Respiratory Rate 22 H Respiratory Effort Short of Breath Respiratory Depth Shallow Respiratory Pattern Normal Blood Pressure 125/57 H Blood Pressure Mean 79 Pulse Ox 93 Oxygen Delivery Method Room Air Room Air Oxygen Flow Rate (L/min) 06/09/24 10:05 06/09/24 11:00 Temperature 100.1 F H 98.9 F Temperature Source Axillary Oral Pulse Rate 101 H 103 H Respiratory Rate 21 H 19 H Respiratory Effort Respiratory Depth Respiratory Pattern Blood Pressure 128/67 H 132/66 H Blood Pressure Mean 87 88 Pulse Ox 100 98 Oxygen Delivery Method Nasal Cannula Oxygen Flow Rate (L/min) 2 2 Weight Weight: 99.3 kg Body Mass Index (BMI) 35.3 Physical Exam Narrative General: Alert, answers questions appropriately, no apparent distress HEENT: Atraumatic, normocephalic Eyes: Anicteric Neck: Supple Respiratory: Some fine crackles at the bases with no overt wheezes or rhonchi, normal respiratory effort Cardiovascular: Mild low-grade sinus tachycardia GI: Soft, nontender, nondistended Extremities: No significant pitting edema Musculoskeletal: Patient chronically wheelchair-bound Neuro: Patient chronically wheelchair-bound Skin: No rashes appreciated Psych: Cooperative Results Lab / Micro Data 06/09/24 09:10 06/09/24 09:10 Labs: Laboratory Results - last 24 hr 06/09/24 09:10: WBC 18.5 H, RBC 4.73, Hgb 13.6, Hct 41.3, MCV 87.3, MCH 28.8, MCHC 32.9, RDW Std Deviation 52.9 H, RDW Coeff of Josue 16.5 H, Plt Count 310, MPV 9.3, Immature Gran % (Auto) 0.700, Neut % (Auto) 85.9 H, Lymph % (Auto) 5.6 L, [place] % (Auto) 6.9, Eos % (Auto) 0.4, Baso % (Auto) 0.5, Absolute Neuts (auto) 15.9 H, Absolute Lymphs (auto) 1.04, Nucleated RBC % 0, Sodium 138, Potassium 4.1, Chloride 103, Carbon Dioxide 22.0, Anion Gap 13, BUN 10, Creatinine 0.67 L, Estim Creat Clear Calc 98.85, Est GFR (MDRD) Non-Af 102, BUN/Creatinine Ratio 15.6, Glucose 149 H, Calcium 9.3, Total Bilirubin 0.29, AST 25, ALT 21, Alkaline Phosphatase 137 H, Total Protein 7.3, Albumin 3.6, Globulin 3.7, Albumin/Globulin Ratio 1.0 06/09/24 09:25: Urine Color Yellow, Urine Clarity Cloudy, Urine pH 7.0, Ur Specific [place] 1.010, Urine Protein 30 H, Urine Glucose (UA) Normal, Urine Ketones Negative, Urine Occult Blood 150 H, Urine Nitrite Positive H, Urine Bilirubin Negative, Urine Urobilinogen Normal, Ur Leukocyte Esterase 500 H, Urine RBC 0-5 SEEN, Urine WBC >100 SEEN, Ur Squamous Epith Cells 0 SEEN, Amorphous Sediment 1+, Urine Bacteria 2+, Urine Mucus 0 SEEN 06/09/24 09:31: Lactic Acid 2.8 H* Micro: Microbiology 06/09/24 09:40 Mucosa - Nose SARS-CoV-2, Influenza & RSV (PCR) - Final Imaging Radiology Impression Chest X-Ray 06/09/24 09:12 IMPRESSION: Stable mild increased markings at the lung bases suggestive of scarring. Right apical scarring. Reading Location: [id number] Assessment & Plan Assessment/Plan (1) Complicated urinary tract infection: PLAN: Plan # Complicated urinary tract infection in association with chronic indwelling Benson -Patient tachycardic with elevated white blood cell count, UA suspicious for UTI -Cultures sent -IV fluids -Will place patient on Levaquin due to previous urinary tract infection sensitivities # Chronic paraplegia -Supportive care -Occupational Therapy ordered -Treat underlying infection, suspect this will improve functional status -Continue baclofen as tolerated #Hypothyroidism -Continue Synthroid # Chronic decubitus ulcer -Following with Dr. Kay, healing well, continue outpatient follow-up -Will consult wound care while patient admitted #GERD -Continue PPI # Hyperlipidemia -Continue Vascepa if available #DVT ppx: SCDs Juliana Shaw MD Time spent in the patient's overall evaluation, decision-making process, review of diagnostic data, adjustment of management, discussion with other providers, nursing and ancillary staff involved in patient's care documentation, 57 Minutes Charges/Coding Visit Charges Inpatient E&M: 79790 Init Hosp L2
--- NOTE | 2024-06-09 12:57 | CASEMGMT ---
Care Management Face to Face with patient for initial transition planning/care coordination assessment in the ED.? This commercial underwriter introduced self and role at [facility]. Patient alert and oriented. Patient willing to participate in assessment and is able to answer all questions appropriately.? Care providers, pharmacy, and demographics verified. Admitting Diagnosis: fever Other diagnosis history: paraplegic, pressure ulcer, arthritis, COPD PCP: Erasmo Specialists: Wound Center Preferred Pharmacy: [facility] Insurance: [employer] Prescription Benefit: yes Living Will/HPOA: ?HCPOA completed LNOK: Living Arrangements: Lives with in a one story home, ramp to enter.? helps patient with ADLS and IADLs.? Transportation: has a handicap accessible van, drives DME: hospital bed, ramp to enter home, hospital bed, wheelchair HHC: Visiting Nurse? ??Aide 1 x per week, Nurse 1 x per week SNF/Rehab: none Community Resources: none Behavioral Health History: none Patient goals: Patient wishes to discharge home. Disposition Plan: admission to acute; RN CM/SW to follow for discharge planning needs that may arise. Afsaneh Cline, ENVIRONMENTAL PROTECTION GEOLOGIST, PROGRESSIVE CARE UNIT REGISTERED NURSE
[2024-06-09] MEDS: 0.9% Normal Saline (1000mL) 1,000 ML 50 ML IV (13:53)
[2024-06-09] MEDS: levoFLOXacin IV 750 MG/150 ML BAG 100 MG IV (13:53)
--- NOTE | 2024-06-09 14:55 | WOUNDNOTE ---
wound photo: right ischium
[2024-06-09] MEDS: Baclofen 10 MG Tablet 15 MG PO ×2 (15:06→21:29)
[2024-06-09] MEDS: Ensure Plus High Protein 120 ML LIQUID PO (15:11)
--- NOTE | 2024-06-09 18:45 | CASEMGMT ---
JAZZY PAVON NOTE: JAZZY CM to room. Pt resting in bed. JAZZY PAVON introduced self and role. Pt is active w/[facility] and he states he wishes to resume with them. He declines wanting list of other HHC options. Taina SCHWARZN JAZZY PAVON
[2024-06-09] MEDS: Tamsulosin HCl 0.4 MG Capsule PO (21:30)
[2024-06-09] MEDS: icosapent ethyL 1 GM Capsule 2 GM PO (21:30)
[2024-06-10 01:45] VITALS: BP 117/54; PULSE 74; RESP 16; TEMP 36.8; O2SAT 97
[2024-06-10 05:32] VITALS: BP 115/61; PULSE 73; RESP 16; TEMP 36.6; O2SAT 96
[2024-06-10] MEDS: Levothyroxine 125 MCG Tablet PO (05:35)
[2024-06-10] MEDS: DAKIN'S SOL HALF STRENGTH (=0.25%) TOPICAL ×3 (05:35→22:29)
[2024-06-10] MEDS: Baclofen 10 MG Tablet 15 MG PO ×3 (05:35→22:29)
[2024-06-10 07:33] LABS: Absolute Neutrophil Count 12.1 X10^3/uL (2.0-7.7); Basophil# 0.04 X10^3/uL; Basophil% 0.3 % (0-1); Eosinophil# 0.22 X10^3/uL; Eosinophils% 1.4 % (0-5); Hematocrit 38.1 % (40-54); Hemoglobin 12.3 g/dL (13.0-16.5); Lymphocyte % 12.1 % (19-41); Mean Corp Hgb Conc 32.3 g/dL (32-36); Mean Corpuscular Hgb 28.8 pg (27.0-32.0); Mean Corpuscular Volume 89.2 fL (80-94); Mean Platelet Vol. 9.9 fl (6.2-12.0); Monocyte% 8.2 % (0-10); NRBC Flagged by Analyzer 0 % (0-5); Neutrophil # 12.08 X10^3/uL (2.7-7.7); Neutrophil % 76.6 % (47-70); Platelet Count 278 K/mm3 (150-450); RBC Distribution Width CV 17.1 % (11.6-14.6); RBC Distribution Width SD 55.8 fl (35.1-43.9); Red Blood Count 4.27 M/mm3 (4.6-6.2); White Blood Count 15.8 K/mm3 (4.4-11.0)
[2024-06-10 08:26] LABS: Anion Gap 11 (5-15); BUN 9 mg/dL (4-19); Carbon Dioxide 23.2 mmol/L (21.0-32.0); Chloride 102 mmol/L (98-108); Creatinine, Serum 0.66 mg/dL (0.70-1.20); EST Glomerular Filtration Rate 103 (>60); Estimated Creatinine Clearance 97.57 ml/min (50-250); Glucose 127 mg/dL (70-99); Sodium Level 137 mmol/L (133-145)
--- NOTE | 2024-06-10 08:59 | PCM.PN.HOSP ---
Reason for Visit Reason for Visit: Diagnoses Urinary tract infection, site not specified (06/09/24) Subjective Subjective Patient beginning to feel much better, more awake and alert, weakness improving Objective Data Objective Data Vital Signs: Vital Signs Temp Pulse Resp BP Pulse Ox O2 Del Method O2 Flow Rate 97.9 F 73 16 115/61 96 Room Air 3 06/10/24 05:32 06/10/24 05:32 06/10/24 05:32 06/10/24 05:32 06/10/24 05:32 06/10/24 05:32 06/09/24 13:38 Oxygen Flow Rate (L/min) 3 Oxygen Delivery Method Room Air Weight: 96.757 kg Body Mass Index (BMI) 34.4 Intake & Output: Intake and Output for Last 24 Hours 06/08/24 06/09/24 06/10/24 23:59 23:59 23:59 Intake Total 750 / 750 400 / 400 Output Total 525 / 525 250 / 250 Balance 225 / 225 150 / 150 Lab / Micro Data 06/10/24 06:36 06/10/24 06:36 Labs: Laboratory Results - last 24 hr 06/09/24 09:10: WBC 18.5 H, RBC 4.73, Hgb 13.6, Hct 41.3, MCV 87.3, MCH 28.8, MCHC 32.9, RDW Std Deviation 52.9 H, RDW Coeff of Josue 16.5 H, Plt Count 310, MPV 9.3, Immature Gran % (Auto) 0.700, Neut % (Auto) 85.9 H, Lymph % (Auto) 5.6 L, [place] % (Auto) 6.9, Eos % (Auto) 0.4, Baso % (Auto) 0.5, Absolute Neuts (auto) 15.9 H, Absolute Lymphs (auto) 1.04, Nucleated RBC % 0, Sodium 138, Potassium 4.1, Chloride 103, Carbon Dioxide 22.0, Anion Gap 13, BUN 10, Creatinine 0.67 L, Estim Creat Clear Calc 98.85, Est GFR (MDRD) Non-Af 102, BUN/Creatinine Ratio 15.6, Glucose 149 H, Calcium 9.3, Total Bilirubin 0.29, AST 25, ALT 21, Alkaline Phosphatase 137 H, Total Protein 7.3, Albumin 3.6, Globulin 3.7, Albumin/Globulin Ratio 1.0 06/09/24 09:25: Urine Color Yellow, Urine Clarity Cloudy, Urine pH 7.0, Ur Specific [place] 1.010, Urine Protein 30 H, Urine Glucose (UA) Normal, Urine Ketones Negative, Urine Occult Blood 150 H, Urine Nitrite Positive H, Urine Bilirubin Negative, Urine Urobilinogen Normal, Ur Leukocyte Esterase 500 H, Urine RBC 0-5 SEEN, Urine WBC >100 SEEN, Ur Squamous Epith Cells 0 SEEN, Amorphous Sediment 1+, Urine Bacteria 2+, Urine Mucus 0 SEEN 06/09/24 09:31: Lactic Acid 2.8 H* 06/10/24 06:36: WBC 15.8 H, RBC 4.27 L, Hgb 12.3 L, Hct 38.1 L, MCV 89.2, MCH 28.8, MCHC 32.3, RDW Std Deviation 55.8 H, RDW Coeff of Josue 17.1 H, Plt Count 278, MPV 9.9, Immature Gran % (Auto) 1.400 H, Neut % (Auto) 76.6 H, Lymph % (Auto) 12.1 L, [place] % (Auto) 8.2, Eos % (Auto) 1.4, Baso % (Auto) 0.3, Absolute Neuts (auto) 12.1 H, Absolute Lymphs (auto) 1.90, Nucleated RBC % 0, Sodium 137, Potassium 4.0, Chloride 102, Carbon Dioxide 23.2, Anion Gap 11, BUN 9, Creatinine 0.66 L, Estim Creat Clear Calc 97.57, Est GFR (MDRD) Non-Af 103, BUN/Creatinine Ratio 13.0, Glucose 127 H, Calcium 9.0 Micro: Microbiology 06/09/24 09:40 Mucosa - Nose SARS-CoV-2, Influenza & RSV (PCR) - Final Radiography Diagnostic Testing: Radiology Impression Chest X-Ray 06/09/24 09:12 IMPRESSION: Stable mild increased markings at the lung bases suggestive of scarring. Right apical scarring. Reading Location: [facility] Physical Exam Narrative General: Alert, answers questions appropriately, no apparent distress HEENT: Atraumatic, normocephalic Eyes: Anicteric Neck: Supple Respiratory: Normal respiratory effort Cardiovascular: Normal rate GI: Soft, nontender, nondistended Extremities: No significant pitting edema Musculoskeletal: Patient chronically wheelchair-bound Neuro: Patient chronically wheelchair-bound Skin: No rashes appreciated Psych: Cooperative Assessment & Plan Assessment/Plan (1) Complicated urinary tract infection: PLAN: Plan # Complicated urinary tract infection in association with chronic indwelling Benson -Patient tachycardic with elevated white blood cell count, UA suspicious for UTI -Cultures sent -IV fluids -Will place patient on Levaquin due to previous urinary tract infection sensitivities -06/10: Remains on Levaquin with cultures pending, preliminarily growing 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 Kay, healing well, continue outpatient follow-up -Will consult wound care while patient admitted #GERD -Continue PPI # Hyperlipidemia -Continue Vascepa if available #DVT ppx: SCDs Juliana Shaw MD Charges/Coding Visit Charges Inpatient E&M: 57264 Subs Hosp L1
--- NOTE | 2024-06-10 09:55 | WOUNDNOTE ---
colostomy appliance changed d/t small amount of leakage. removed the appliance. peristomal skin is intact. stoma is pink and well budded. cleansed skin with warm water. pat dry. applied a new 2 piece flat [place] appliance with a small amount of stoma paste. pt tolerated well.
[2024-06-10] MEDS: Tamsulosin HCl 0.4 MG Capsule PO ×2 (10:36→22:24)
[2024-06-10] MEDS: Enoxaparin 40 MG/0.4 ML Syringe SC (10:36)
[2024-06-10] MEDS: Pantoprazole Sodium 40 MG Tablet PO (10:37)
[2024-06-10 11:30] VITALS: BP 103/60; PULSE 68; RESP 16; TEMP 37.1; O2SAT 96
[2024-06-10] MEDS: levoFLOXacin IV 750 MG/150 ML BAG 100 MG IV (11:40)
[2024-06-10] MEDS: 0.9% Normal Saline (1000mL) 1,000 ML 50 ML IV (11:41)
[2024-06-10] MEDS: Ensure Plus High Protein 120 ML LIQUID PO ×2 (12:01→18:53)
--- NOTE | 2024-06-10 16:00 | CASEMGMT ---
JAZZY PAVON NOTE: Per verbal report from therapy today, pt safe to dc home when he is medically ready. Pt is active w/[facility]. Green sheet placed on chart for HHC. Taina NEAL RN CM
[2024-06-10 21:00] VITALS: BP 120/61; PULSE 85; RESP 16; TEMP 36.7; O2SAT 94
[2024-06-11 03:00] VITALS: BP 138/71; PULSE 81; RESP 16; TEMP 36.8; O2SAT 93
[2024-06-11] MEDS: Baclofen 10 MG Tablet 15 MG PO ×3 (05:21→22:37)
[2024-06-11] MEDS: Levothyroxine 125 MCG Tablet PO (05:21)
[2024-06-11 06:10] LABS: Absolute Lymphocyte Count 1.61 X10^3/uL (0.83-4.51); Basophil# 0.05 X10^3/uL; Basophil% 0.5 % (0-1); Eosinophil# 0.21 X10^3/uL; Eosinophils% 2.2 % (0-5); Hemoglobin 11.9 g/dL (13.0-16.5); Lymphocyte # 1.61 X10^3/ul (0.83-4.51); Lymphocyte % 16.6 % (19-41); Mean Corp Hgb Conc 32.2 g/dL (32-36); Mean Corpuscular Hgb 28.5 pg (27.0-32.0); Mean Corpuscular Volume 88.5 fL (80-94); Mean Platelet Vol. 9.6 fl (6.2-12.0); Monocyte# 0.72 X10^3/uL; Monocyte% 7.4 % (0-10); NRBC Flagged by Analyzer 0 % (0-5); Neutrophil # 6.99 X10^3/uL (2.7-7.7); Neutrophil % 72.2 % (47-70); Platelet Count 270 K/mm3 (150-450); RBC Distribution Width CV 16.6 % (11.6-14.6); RBC Distribution Width SD 53.7 fl (35.1-43.9); Red Blood Count 4.18 M/mm3 (4.6-6.2); White Blood Count 9.7 K/mm3 (4.4-11.0)
[2024-06-11 06:49] LABS: Anion Gap 11 (5-15); BUN 13 mg/dL (4-19); BUN/Creat Ratio 21.5 RATIO (10-20); Calcium,Total 9.1 mg/dL (7.6-11.0); Carbon Dioxide 21.5 mmol/L (21.0-32.0); Chloride 102 mmol/L (98-108); Creatinine, Serum 0.61 mg/dL (0.70-1.20); EST Glomerular Filtration Rate 105 (>60); Estimated Creatinine Clearance 97.57 ml/min (50-250); Glucose 148 mg/dL (70-99); Potassium 4.2 mmol/L (3.3-5.1); Sodium Level 134 mmol/L (133-145)
[2024-06-11 09:00] VITALS: BP 118/56; PULSE 79; RESP 16; TEMP 36.4; O2SAT 98
[2024-06-11] MEDS: Tamsulosin HCl 0.4 MG Capsule PO ×2 (09:17→22:36)
[2024-06-11] MEDS: Ensure Plus High Protein 120 ML LIQUID PO (09:17)
[2024-06-11] MEDS: DAKIN'S SOL HALF STRENGTH (=0.25%) TOPICAL ×2 (09:17→22:37)
[2024-06-11] MEDS: Enoxaparin 40 MG/0.4 ML Syringe SC (09:18)
[2024-06-11] MEDS: Pantoprazole Sodium 40 MG Tablet PO (09:19)
[2024-06-11] MEDS: levoFLOXacin IV 750 MG/150 ML BAG 100 MG IV (09:22)
--- NOTE | 2024-06-11 12:42 | PN.HOSP_ITS ---
Reason for Visit Reason for Visit: Diagnoses Urinary tract infection, site not specified (06/09/24) Subjective Subjective Patient continues to improve overall, suspect patient will be able to DC home on discharge Objective Data Objective Data Vital Signs: Vital Signs Temp Pulse Resp BP Pulse Ox O2 Del Method O2 Flow Rate 97.6 F L 79 16 118/56 L 98 Room Air 3 06/11/24 09:00 06/11/24 09:00 06/11/24 09:00 06/11/24 09:00 06/11/24 09:00 06/11/24 09:00 06/09/24 13:38 Oxygen Flow Rate (L/min) 3 Oxygen Delivery Method Room Air Weight: 96.757 kg Body Mass Index (BMI) 34.4 Intake & Output: Intake and Output for Last 24 Hours 06/09/24 06/10/24 06/11/24 23:59 23:59 23:59 Intake Total 750 / 750 2565.83 / 3065.83 1404.17 / 1404.17 Output Total 525 / 525 750 / 1550 800 / 800 Balance 225 / 225 1815.83 / 1515.83 604.17 / 604.17 Lab / Micro Data 06/11/24 05:41 06/11/24 05:41 Labs: Laboratory Results - last 24 hr 06/11/24 05:41: WBC 9.7, RBC 4.18 L, Hgb 11.9 L, Hct 37.0 L, MCV 88.5, MCH 28.5, MCHC 32.2, RDW Std Deviation 53.7 H, RDW Coeff of Josue 16.6 H, Plt Count 270, MPV 9.6, Immature Gran % (Auto) 1.100 H, Neut % (Auto) 72.2 H, Lymph % (Auto) 16.6 L , [place] % (Auto) 7.4, Eos % (Auto) 2.2, Baso % (Auto) 0.5, Absolute Neuts (auto) 7.0, Absolute Lymphs (auto) 1.61, Nucleated RBC % 0, Sodium 134, Potassium 4.2, Chloride 102, Carbon Dioxide 21.5, Anion Gap 11, BUN 13, Creatinine 0.61 L, Estim Creat Clear Calc 97.57, Est GFR (MDRD) Non-Af 105, BUN/Creatinine Ratio 21.5 H, Glucose 148 H, Calcium 9.1 Micro: Microbiology 06/09/24 09:40 Blood Culture (Wb) - Right Forearm Blood Culture - Preliminary No growth in 48 hours. 06/09/24 09:31 Blood Culture (Wb) - Left Hand Blood Culture - Preliminary No growth in 48 hours. 06/09/24 09:25 Urine Catheter - Benson Urine Culture - Preliminary Klebsiella oxytoca Staphylococcus aureus 06/09/24 09:40 Mucosa - Nose SARS-CoV-2, Influenza & RSV (PCR) - Final Physical Exam Narrative General: Alert, answers questions appropriately, no apparent distress HEENT: Atraumatic, normocephalic Eyes: Anicteric Neck: Supple Respiratory: Normal respiratory effort Cardiovascular: Normal rate GI: Soft, nontender, nondistended Extremities: No significant pitting edema Musculoskeletal: Patient chronically wheelchair-bound Neuro: Patient chronically wheelchair-bound Skin: No rashes appreciated Psych: Cooperative Assessment & Plan Assessment/Plan (1) Complicated urinary tract infection: PLAN: Plan # Complicated urinary tract infection in association with chronic indwelling Benson secondary to Klebsiella and Staph aureus -Patient tachycardic with elevated white blood cell count, UA suspicious for UTI -Cultures sent -IV fluids -Will place patient on Levaquin due to previous urinary tract infection sensitivities -06/10: Remains on Levaquin with cultures pending, preliminarily growing gram- negative 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, white blood cell count downtrending, patient vitally stable -06/11: Patient on Levaquin which is covering the Klebsiella, patient also now growing Staph aureus without sensitivities pending, if sensitivities are back tomorrow and there is an appropriate oral regimen can likely DC home if not may need ID consult on Thursday if patient requires IV antibiotics, patient verbalized understanding, agreeable to plan Chronic medical problems: # Chronic paraplegia -Supportive care -Occupational Therapy ordered -Treat underlying infection, suspect this will improve functional status -Continue baclofen as tolerated #Hypothyroidism -Continue Synthroid # Chronic decubitus ulcer -Following with Dr. Kay, healing well, continue outpatient follow-up -Will consult wound care while patient admitted #GERD -Continue PPI # Hyperlipidemia -Continue Vascepa if available #DVT ppx: SCDs Juliana Shaw MD Charges/Coding Visit Charges Inpatient E&M: 58732 Subs Hosp L1
[2024-06-11 15:00] VITALS: BP 112/58; PULSE 80; RESP 18; TEMP 36.8; O2SAT 96
[2024-06-11 22:30] VITALS: BP 110/62; PULSE 70; RESP 16; TEMP 36.7; O2SAT 96
[2024-06-12 03:58] VITALS: BP 113/67; PULSE 79; RESP 16; TEMP 36.6; O2SAT 94
[2024-06-12 04:20] LABS: Absolute Lymphocyte Count 1.86 X10^3/uL (0.83-4.51); Absolute Neutrophil Count 4.4 X10^3/uL (2.0-7.7); Basophil# 0.05 X10^3/uL; Basophil% 0.7 % (0-1); Eosinophil# 0.27 X10^3/uL; Eosinophils% 3.5 % (0-5); Hematocrit 38.4 % (40-54); Hemoglobin 12.3 g/dL (13.0-16.5); Lymphocyte # 1.86 X10^3/ul (0.83-4.51); Lymphocyte % 24.3 % (19-41); Mean Corpuscular Hgb 28.5 pg (27.0-32.0); Mean Corpuscular Volume 88.9 fL (80-94); Mean Platelet Vol. 9.8 fl (6.2-12.0); Monocyte# 0.96 X10^3/uL; Monocyte% 12.5 % (0-10); NRBC Flagged by Analyzer 0 % (0-5); Neutrophil # 4.36 X10^3/uL (2.7-7.7); Neutrophil % 56.9 % (47-70); Platelet Count 288 K/mm3 (150-450); RBC Distribution Width CV 16.4 % (11.6-14.6); RBC Distribution Width SD 53.4 fl (35.1-43.9); Red Blood Count 4.32 M/mm3 (4.6-6.2); White Blood Count 7.7 K/mm3 (4.4-11.0)
[2024-06-12 04:59] LABS: Anion Gap 11 (5-15); BUN 15 mg/dL (4-19); BUN/Creat Ratio 25.3 RATIO (10-20); Calcium,Total 9.3 mg/dL (7.6-11.0); Carbon Dioxide 23.1 mmol/L (21.0-32.0); Chloride 102 mmol/L (98-108); Creatinine, Serum 0.57 mg/dL (0.70-1.20); EST Glomerular Filtration Rate 107 (>60); Estimated Creatinine Clearance 97.57 ml/min (50-250); Glucose 163 mg/dL (70-99); Potassium 4.1 mmol/L (3.3-5.1); Sodium Level 137 mmol/L (133-145)
[2024-06-12] MEDS: Levothyroxine 125 MCG Tablet PO (06:00)
[2024-06-12] MEDS: Baclofen 10 MG Tablet 15 MG PO ×2 (06:00→13:27)
[2024-06-12 10:21] VITALS: BP 130/70; PULSE 78; RESP 20; TEMP 36.7; O2SAT 94
[2024-06-12] MEDS: Pantoprazole Sodium 40 MG Tablet PO (10:27)
[2024-06-12] MEDS: Enoxaparin 40 MG/0.4 ML Syringe SC (10:27)
[2024-06-12] MEDS: Tamsulosin HCl 0.4 MG Capsule PO (10:27)
[2024-06-12] MEDS: DAKIN'S SOL HALF STRENGTH (=0.25%) TOPICAL (10:28)
[2024-06-12] MEDS: levoFLOXacin 750 MG Tablet PO (10:34)
[2024-06-12] MEDS: Ensure Plus High Protein 120 ML LIQUID PO ×2 (10:34→13:31)
--- NOTE | 2024-06-12 13:26 | PCM.DC ---
Discharge Instructions Diet Discharge Diet: No restrictions DC O2, CPAP, BIPAP needs Home O2 Discharge instructions: No Dressing / Incision Discharge Activity: Return to Normal Activity Follow Up Care Test Results: Test results from this visit will be discussed in further detail at your follow-up appointment, if applicable. Discharge Plan Admission Admit Date/Time: 06/09/24 12:06 Primary Reason for Your Visit: Weakness and fever Attending Provider: Juliana Shaw Primary Care Provider: Brian Zimmerman Instructions Patient Instructions: ED Bladder Infection, Male (Adult) Additional Instructions / Restrictions: DISCHARGE INSTRUCTIONS PLEASE READ *Please take this with you to your next doctors appointment* - -Please call your primary care provider's office upon discharge to schedule a hospital follow up within 1 week. -For any concerning signs or symptoms please call 911 or proceed to the nearest emergency department Discharge Orders/Prescriptions Prescriptions: New amoxicillin-pot clavulanate 875-125 mg tablet 1 tab PO BID 7 Days Qty: 14 0RF linezolid 600 mg tablet 600 mg PO BID 7 Days Qty: 14 0RF Continued tamsulosin 0.4 MG capsule 0.4 mg PO BID baclofen 10 MG tablet 15 mg PO TID Patient Comments: 1.5 TABS = 15 MG TID levothyroxine 125 MCG tablet 125 mcg PO DAILY icosapent ethyl [Vascepa] 1 gram Capsule 2 g PO BID acetaminophen 650 mg Tablet Extended Release 1,300 mg PO Q8H PRN (Reason: Pain) esomeprazole magnesium [Nexium] 40 mg Capsule,Delayed Release(Dr/Ec) 40 mg PO DAILY Other Ambulatory Orders: 14 Day Event Recorder Preventi (Urgent) Timeframe: 1 Day Facility: [facility] - Location: Cardiovascular Services Ordered By: Dr. Juliana Shaw Referrals / Follow Up: Brian Zimmerman MD [Primary Care Provider] - Disposition Disposition (needs filled in before D/C Order can be placed): Home Health Service
--- NOTE | 2024-06-12 13:32 | PCM.DC.SUM ---
Providers Date of Admission: 06/09/24 Date of Discharge: 06/12/24 Primary Care Physician: Dr. Brian Zimmerman MD Consultations 06/09/24 13:14 Consult: Onc/Wound/inspector filters Routine Comment: Reason for Consult:: Decubitus ulcer follows with wound clinic Reason For Visit: COMPLICATED URINARY TRACT INFECTION Diagnosis Discharge Diagnosis (1) Complicated urinary tract infection: Status: Acute Code(s): N39.0 - Urinary tract infection, site not specified Plan # Complicated urinary tract infection in association with chronic indwelling Benson secondary to Klebsiella and Staph aureus # Chronic paraplegia #Hypothyroidism # Chronic decubitus ulcer #GERD # Hyperlipidemia Medications at Discharge Home Medications baclofen 10 mg tablet 15 mg PO TID spasm 12/17/17 levothyroxine 125 mcg tablet 125 mcg PO DAILY 12/17/17 tamsulosin 0.4 mg capsule 0.4 mg PO BID 12/17/17 icosapent ethyl 1 gram capsule (Vascepa) 2 g PO BID cholesterol 02/08/22 acetaminophen 650 mg tablet,extended release 1,300 mg PO Q8H PRN Pain 04/25/22 esomeprazole magnesium 40 mg capsule,delayed release (Nexium) 40 mg PO DAILY 06/16/22 amoxicillin 875 mg-potassium clavulanate 125 mg tablet 1 tab PO BID 7 days #14 tabs 06/12/24 linezolid 600 mg tablet 600 mg PO BID 7 days #14 tabs 06/12/24 Hospital Course Summary of Care Provided Minutes Spent on Discharge: 25 Hospital Course: # Complicated urinary tract infection in association with chronic indwelling Benson secondary to Klebsiella and Staph aureus # Chronic paraplegia #Hypothyroidism # Chronic decubitus ulcer #GERD # Hyperlipidemia 68-year-old man with history of paraplegia, COPD, hypothyroidism, chronic indwelling Benson who presented [facility] ED 06/09/2024 with 1 day of weakness, diarrhea and fever. Ultimately he called EMS today because he was too weak to transfer with his wheelchair. EMS reported patient was hypoxic and put him on nasal cannula, he was also febrile, on arrival to the ED patient with temperature of 102, heart rate 112 with blood pressure 125/57, lactic acid 2.8, respiratory rate 22 and patient 93% on room air. White blood cell count 18 and UA suggestive of UTI, patient started on antibiotics and hospitalist contacted for admission. Patient improved with antibiotics and ultimately cultures grew Klebsiella and Staph aureus, appropriate oral regimen identified and patient and comfortable with discharge home. Did discuss that 2 days ago patient had 2 dropped beats at 5:00 in the morning on telemetry, did discuss this with cardiology and they recommended event monitor on discharge. Patient had no further episodes and that episode happened while he was asleep and was not known to have any kind of symptoms. Discussed this with patient and and they verbalized understanding. On day of discharge patient feeling overall well with no new or acute complaints. Physical Exam Narrative General: Alert, answers questions appropriately, no apparent distress HEENT: Atraumatic, normocephalic Eyes: Anicteric Neck: Supple Respiratory: Normal respiratory effort Cardiovascular: Normal rate GI: Soft, nontender, nondistended Extremities: No significant pitting edema Musculoskeletal: Patient chronically wheelchair-bound Neuro: Patient chronically wheelchair-bound Skin: No rashes appreciated Psych: Cooperative Weight / BMI Weight Weight: 96.757 kg Body Mass Index (BMI) 34.4 ABG / Lab / Microbiology Data 06/12/24 04:00 06/12/24 04:00 Laboratory: Laboratory Results - last 24 hr 06/12/24 04:00: WBC 7.7, RBC 4.32 L, Hgb 12.3 L, Hct 38.4 L, MCV 88.9, MCH 28.5, MCHC 32.0, RDW Std Deviation 53.4 H, RDW Coeff of Josue 16.4 H, Plt Count 288, MPV 9.8, Immature Gran % (Auto) 2.100 H, Neut % (Auto) 56.9, Lymph % (Auto) 24.3, [place] % (Auto) 12.5 H, Eos % (Auto) 3.5, Baso % (Auto) 0.7, Absolute Neuts (auto) 4.4, Absolute Lymphs (auto) 1.86, Nucleated RBC % 0, Sodium 137, Potassium 4.1, Chloride 102, Carbon Dioxide 23.1, Anion Gap 11, BUN 15, Creatinine 0.57 L, Estim Creat Clear Calc 97.57, Est GFR (MDRD) Non-Af 107, BUN/Creatinine Ratio 25.3 H, Glucose 163 H, Calcium 9.3 Microbiology: Microbiology 06/09/24 09:25 Urine Catheter - [place] Urine Culture - Final Klebsiella oxytoca Staphylococcus aureus 06/09/24 09:40 Blood Culture (Wb) - Right Forearm Blood Culture - Preliminary No growth in 48 hours. 06/09/24 09:31 Blood Culture (Wb) - Left Hand Blood Culture - Preliminary No growth in 48 hours. 06/09/24 09:40 Mucosa - Nose SARS-CoV-2, Influenza & RSV (PCR) - Final D/C Instructions Discharge Diet: No restrictions DC O2, CPAP, BIPAP Needs Home O2 Discharge instructions: No Meaningful Use Info Meaningful Use Meaningful Use Diagnoses (Choose all that apply): None applicable Ischemic Stroke Statin Dosing Therapy Reference: STATIN DOSE THERAPY REFERENCE: * Patients > 75 years receive moderate or high dose statin therapy. * Patients 75 years or YOUNGER should receive HIGH intensity statin dose unless contraindicated. You will be required to document reason for non-treatment if statin daily dose does not meet guidelines. HIGH DOSE STATIN THERAPY DAILY Atorvastatin > than or = to 40 mg Rosuvastatin > than or = to 20 mg Amlodipine + Atorvastatin > than or = to 2.5/40 mg Ezetimibe + Simvastatin 10/80 mg Simvastatin 80mg Discharge Plan Admission Admit Date/Time: 06/09/24 12:06 Primary Reason for Your Visit: Weakness and fever Attending Provider: Juliana Shaw Primary Care Provider: Brian Zimmerman Instructions Patient Instructions: ED Bladder Infection, Male (Adult) Additional Instructions / Restrictions: DISCHARGE INSTRUCTIONS PLEASE READ *Please take this with you to your next doctors appointment* -Please call your primary care provider's office upon discharge to schedule a hospital follow up within 1 week. -For any concerning signs or symptoms please call 911 or proceed to the nearest emergency department Discharge Orders/Prescriptions Prescriptions: New amoxicillin-pot clavulanate 875-125 mg tablet 1 tab PO BID 7 Days Qty: 14 0RF linezolid 600 mg tablet 600 mg PO BID 7 Days Qty: 14 0RF Continued tamsulosin 0.4 MG capsule 0.4 mg PO BID baclofen 10 MG tablet 15 mg PO TID Patient Comments: 1.5 TABS = 15 MG TID levothyroxine 125 MCG tablet 125 mcg PO DAILY icosapent ethyl [Vascepa] 1 gram Capsule 2 g PO BID acetaminophen 650 mg Tablet Extended Release 1,300 mg PO Q8H PRN (Reason: Pain) esomeprazole magnesium [Nexium] 40 mg Capsule,Delayed Release(Dr/Ec) 40 mg PO DAILY Other Ambulatory Orders: 14 Day Event Recorder Preventi (Urgent) Timeframe: 1 Day Facility[facility] - Location: Cardiovascular Services Ordered By: Dr. Juliana Shaw Referrals / Follow Up: Brian Zimmerman MD [Primary Care Provider] - Disposition Disposition (needs filled in before D/C Order can be placed): Home Health Service Charges/Coding Visit Charges Inpatient E&M: 29161 Disch Hosp
[2024-06-12 14:18] VITALS: BP 121/70; PULSE 74; RESP 16; O2SAT 94
== END 2024-06-12 14:59 | disposition home health service (06) ==
LOC: ED 11:32 → PCU 12:46
PROVIDERS: Admitting Provider Internal Medicine; Emergency Provider Emergency Medicine; PCP Family Medicine; Visit Provider Internal Medicine
DX: T83.511A Infection and inflammatory reaction due to indwelling urethral catheter, initial encounter (principal); L89.314 Pressure ulcer of right buttock, stage 4; G82.20 Paraplegia, unspecified; Z93.3 Colostomy status; J44.9 Chronic obstructive pulmonary disease, unspecified; E03.9 Hypothyroidism, unspecified; E78.5 Hyperlipidemia, unspecified; K21.9 Gastro-esophageal reflux disease without esophagitis; N39.0 Urinary tract infection, site not specified; B96.1 Klebsiella pneumoniae [K. pneumoniae] as the cause of diseases classified elsewhere; B95.8 Unspecified staphylococcus as the cause of diseases classified elsewhere; Z79.899 Other long term (current) drug therapy; Z87.891 Personal history of nicotine dependence; Z74.01 Bed confinement status; X58.XXXA Exposure to other specified factors, initial encounter; Y73.1 Therapeutic (nonsurgical) and rehabilitative gastroenterology and urology devices associated with adverse incidents
CPT/HCPCS: 36415; 71046; 80048; 80053; 81001; 83605; 85025; 87040; 87077; 87086; 87088; 87186; 87631; 96365; 96366; 96367; 96372; 97162; 97166; 99221; 99285; A4216; G0378; J0696

== ENCOUNTER 2024-06-27 15:30 | Outpatient (RCR) | payer MEDICARE, SELFPAY ==
[2024-05-28 01:49] VITALS: BP 110/59; PULSE 89; RESP 18; TEMP 36.9; BMI 35.5
[2024-05-30 15:13] VITALS: BP 117/79; PULSE 90; RESP 16; TEMP 36.7; BMI 35.5
--- NOTE | 2024-05-30 18:37 | PCM.WC.PN ---
History of Present Illness Date of Service: 05/30/24 Chief Complaint: Right ischial pressure sore, Stage IV. History of Wound: This is a 68-year-old white male who presented to the wound healing center with complaints of pressure ulcer to right buttock area with extension to the right ischial bone. This started in October,. Patient's was treating with OTC creams and keeping area clean. The ulcer starting increasing in size and went to the Emergency Department on 02/08/22. CT showed subcutaneous and deep soft tissue involvement and possible early abscess formation. The bone was not addressed. The patient has very limited mobility as a result of a prior spine injury/surgery. He utilizes a wheelchair at all times. He has not been using his lm lift at home to transfer but has been using a board to slide himself from his bed to chair at home. He sits in his wheelchair almost all day, not really able to change positions. They finally obtained a low air loss overlay to their regular mattress at home. A roho cushion was ordered for his wheelchair. Patient is a former smoker, he quit early 2023. Surgery 04/28/22 - Excision right ischial pressure sore, Stage IV, with partial ostectomy for osteomyelitis. Size of wound 8 x 7 x 4.5 cm. Operative tissue cultures positive for MSSA and Cutibacterium acnes. Bone cultures positive for MSSA and Corynebacterium striatum. He is being treated with Augmentin. Pathology from surgery 04/28/22 showed chronic reparative and reactive change. No evidence of acute osteomyelitis. He had a diverting colostomy placed on 11/21/[address] Romero. Surgery 08/26/23 - Excision recurrent right ischial pressure sore, Stage IV, with partial ostectomy for osteomyelitis. Discharged home on 08/27/23. Pathology right ischial pressure sore soft tissue showed focal ulceration, acute and chronic inflammation an granulation tissue reaction. Right ischial bone, partial ostectomy showed fragments of bone with chronic inflammation and reactive changes, negative for acute osteomyelitis. Operative soft tissue cultures from 08/26/23 positive for Serratia marcescens, Staphylococcus capitis, and Corynebacterium striatum. Operative bone cultures from 08/26/23 positive for Serratia marcescens and Corynebacterium striatum. He was started on Levaquin and Doxycycline until he can be seen by ID on 11/04/23. Subjective Subjective 07 Dec 2023: Patient and his report that he has been working with a physical therapist since her last appointment (we ordered physical therapy) and she has been to the house twice to work with him on strengthening his lower extremities that he may potentially use a walker. He is meeting with the cabbage salter today at our wound care center after this appointment so as to improve his nutrition in anticipation of potential reconstruction. They have been doing Dakin's wet-to-dry twice daily and he is not having any fevers chills or concerns for infection. Reports that he has been offloading the wound with his bed and positioning changes. We have still not gotten any notes from the spine surgeon at the [facility]. Our team is working on this, and the patient is signed a release. The patient and his do not know the prognosis with regards to his spine and do not have follow-up with this provider at this point. I will review the notes once I have them and then I can discuss this better with the patient and his so they have proper follow up and a better understanding. 21 Mar 2024: Doing well overall. Have been unable to get any of the notes from outside providers. They're not sure about the spine pathology or prognosis. No new nutrition labs (ordering). We are referring to the correctional facility nurse/nutrition services assistant here at the wound care center. 04 Apr 2024: Nutrition labs reviewed. Albumin 2.8, prealbumin 22. Discussed high protein diet and he's continuing supplementation at home. Patient and his have been thinking about pressure offloading protocol and pressure offloading on the wheelchair. 02 May 2024: Discussed possibilities of flap reconstruction and he and his do not think it is a good idea at this time as they would have trouble with pressure offloading and trouble with not using the wheelchair and with placement in rehab. They would like continued local wound care at this time. Otherwise no changes no fevers or chills CURRENT ENCOUNTER, 30 May 2024: Doing well overall. Discussed wound care and doing well overall with the current dressing changes. Objective Data Objective Data Vital Signs: Vital Signs Temp Pulse Resp BP O2 Del Method 98.1 F 90 16 117/79 Room Air 05/30/24 15:13 05/30/24 15:13 05/30/24 15:13 05/30/24 15:13 05/30/24 15:13 Oxygen Delivery Method Room Air Weight: 218 lb 14.704 oz Body Mass Index (BMI) 35.5 Charges/Coding Procedures Integumentary 111xxx-113xx: 81226 Lillian musc/fascia 20 sq cm/< Add On Codes: 82991 Lillian musc/fascia add-on (x 1 unit ) Physical Exam Narrative Right ischial wound Measured 5.4 x 3.9 cm and 5.5 cm deep. No exposed bone at the base, all granulated. No fluid collections. Surrounding skin appears healthy Const alert and oriented x3 General Appearance: cooperative Eyes EOMs intact bilaterally Resp normal respiratory effort Cardio regular rate and regular rhythm GI GI Narrative: Diverting ostomy is present and is productive Debridement Note Debridement Note Wound debrided: Right ischial wound Laterality: Right Wound Grade/Stage: 3 Type of Debridement: Excisional debridement Anesthesia Used: 4% Lidocaine Solution Depth: to muscle Percentage of wound debrided: 100 Instrument Used: 7mm curette Severity: Necrosis of Muscle Amount of bleeding with debridement: Moderate Bleeding Controlled with: Compression and gauze Patient tolerated procedure: Patient tolerated procedure well Post-Debridement Measurements and Additional Note: Post-Debridement Measurements/Treatment - Nurse 1 - General Ulcer Assessment Start: 05/30/24 15:13 Freq: Status: Active Protocol: KIRA Activity Type Activity Date Activity User E-sign Co-sign Detail Recorded Client Recorded Date Recorded By Document 05/30/24 15:13 SHAISTA [id number] 05/30/24 15:25 KW 05/30/24 15:13 - Today's Visit Information Type of service Follow-up Visit (Physician/STATOR TESTER ) Arrival Mode Wheelchair Accompanied by Patient Identification Verified (Name & Yes ) Height and Weight Body Mass Index (BMI) 35.5 BMI Classification Obese Vital Signs Temperature (97.8 F-99.1 F) 98.1 F Temperature Source Temporal Pulse Rate (60-100) 90 Pulse Location Monitor Respiratory Rate (12-18) 16 Respiratory rate source Observation Oxygen Delivery Method Room Air Blood Pressure (90/60-120/80) 117/79 Blood Pressure Mean (mm Hg) 91 Source Monitor Position Sitting Blood Pressure Location Left Forearm History Since Last Visit- (Skip if this is Patient's initial visit) Have you changed medications since your No last visit? Any new allergies or adverse reactions No Had a fall/change in ADL's that may No increase risk of falls Signs or symptoms of abuse and/or No neglect since last visit Have you been in the hospital since your No last visit? Has dressing in place as prescribed Yes Has compression in place as prescribed N/A Has offloadiing in place as prescribed N/A Experienced any changes in pain level or No management Left Footwear Regular Shoe Right Footwear Regular Shoe Pain Scale: 0-10 Numeric Is Patient Pain Free? Yes - Nurse 1 - General Ulcer Measurement Start: 05/30/24 15:13 Freq: Status: Active Protocol: Activity Type Activity Date Activity User E-sign Co-sign Detail Recorded Client Recorded Date Recorded By Document 05/30/24 15:13 KW [id number] 05/30/24 15:25 KW 05/30/24 15:13 Wound Center Nurse 1 #5- R ischium Post op -Current Size (cm) - Length 5.2 -Current Size (cm) - Width 2.1 -Current Size (cm) - Depth 5.6 -Total Square Cm 10.92 -Date of Last Picture (Recall this 05/30/24 field) -Tunneling Yes -Tunneling Position (O'clock) 2 -Tunneling Distance (cm) 7 -Exudate Amt Large -Exudate Type Serosanguineous -Wound Margin Distinct, Outline Attached -Granulation Amt Large (67-100%) -Granulation Quality Red -Necrosis Amt Small (1-33%) -Necrotic Tissue Type Adherent Slough -Texture (Michelle-wound Skin Appearance) Assessed -Moisture (Michelle-wound Skin Appearance) Assessed, Maceration -Color (Michelle-wound Skin Appearance) Assessed -Temperature (Michelle-wound Skin No Abnormality Appearance) (Pt Warm) -Tenderness on Palpation (Michelle-wound No Skin Appearance) -Ulcer Cleansing Soap and Water -Foul Odor after Cleansing No -Anesthetic Used 4% Lidocaine Solution - Nurse 2 - General Ulcer CM Notes Start: 05/30/24 15:13 Freq: Status: Active Protocol: Activity Type Activity Date Activity User E-sign Co-sign Detail Recorded Client Recorded Date Recorded By Document 05/30/24 15:34 JF [id number] 05/30/24 15:39 JF 05/30/24 15:34 Wound Center Nurse 2 -Time 15:34 -Correct Patient Yes -Correct Side, Site, Position Yes -Correct Procedure Yes -Procedure Performed Yes -Type of Procedure Debridement -Clinical Debridement Muscle / Fascia -Tissue Removed Muscle,Fascia -Post Debridement (cm) - Length 5.4 -Post Debridement (cm) - Width 3.9 -Post Debridement (cm) - Depth 5.5 -Total Square (Post) (cm) 21.06 -Area of Debridement (cm) - Length 5.4 -Area of Debridement (cm) - Width 3.9 -Total Square (Area) (cm) 21.06 -Tunneling No -Undermining/Tunneling No -Circular Undermining No -Wound/Ulcer Outcome Not Healed -Ulcer Cleansing Rinsed/ Irrigated with Saline -Foul Odor after Cleansing No -Bioengineered Tissue No -Bleeding Controlled with Pressure -Treatment Response Procedure Tolerated Well -Offloading No -Pressure Reduction Wheelchair cushion -Debridement - Muscle / Fascia, 1st Yes 20sq cm -Debridement, Muscle/Fascia, ea addt'l 1 20sq cm or part thereof Pain Scale: 0-10 Numeric Is Patient Pain Free? Yes - Nurse 3 - General Ulcer D/C NN Start: 05/30/24 15:13 Freq: Status: Active Protocol: Activity Type Activity Date Activity User E-sign Co-sign Detail Recorded Client Recorded Date Recorded By Document 05/30/24 15:45 DL [id number] 05/30/24 15:48 DL 05/30/24 15:45 Wound Care Center Nurse 3 #5- R ischium Post op -Ulcer Cleansing Rinsed/ Irrigated with Saline -Foul Odor after Cleansing No -Primary Dressing Applied Hysept -Other Dressing dakins -Primary Dressing Covered/Secured with Dry Gauze, Secured with Tape -Other Covering ABD -Hysept 1 -Wound Comment(s) Dressing applied per Ramsey silver. Treatment Response Procedure Tolerated Well Pain Scale: 0-10 Numeric Is Patient Pain Free? Yes - Visit Discharge Discharge Condition Stable Ambulatory Status Wheelchair Transportation Private [facility] Facility Type Home Health Orders Sent Yes Assessment/Plan Assessment/Plan (1) Right ischial pressure sore: CODE(S): L89.319 - Pressure ulcer of right buttock, unspecified stage (2) Right ischial pressure sore, stage 4: CODE(S): L89.314 - Pressure ulcer of right buttock, stage 4 PLAN: Wound care - Dakin's 0.25% moistened gauze packed into the ulcer twice daily and prn covered with ABD or gauze. Wash the ulcer and michelle wound with soap and water at the time of the dressing change. His has been working on getting the [facility] records about his spine surgery and his prognosis. She states that she was told it was sent and received but nobody in the hospital system has been able to locate his chart. We will continue to try to get these records. Encouraged increased protein intake to help with wound healing. Waiting to hear from the [facility] to see if they can assist them financially for a new low air loss mattress. PLAN FROM 21 Mar 2024: I would like to try the VAC again. Patient and reluctant 2/2 problems with it in the past being so close to gluteal crease/perineum. For now, agree with continued Dakins. We talked about practicality of falp reconstruction and risks/benefits, and they're unsure of the benefit, especially if risks of failure/need for further wound care are so high and they're required to have strict and uncomfortable positioning restrictions. F/u and re-address in 2 weeks. 04 Apr 2024: would not like to do wound vac. Reports that it causes too many problems with leaking, ect. They're going to consider options for reconstruction, but are concerned about post-operative rehab and pressure offloading (practicality of not being able to be in a wheelchair). Mrs. Covington is going to call me and discuss further after she and her have discussed more. PLAN FROM 02 May 2024: After thorough discussion of options for potential reconstruction, and Mrs. Covington would like to defer reconstruction at this time and continue local wound care regimen. Follow-up in 2 weeks for wound check. Continue current regimen. Plan from 30 May 2024: Making improvements with dressings. Continue offloading and the Dakins WTD. O.K. for monthly wound checks (challenge for the family to come more often than this, and wound is open and healthy). Plan to continue to promote granulation (has granulated over bone with current regimen).
--- NOTE | 2024-05-31 15:14 | WC ---
Dasia Covington called letting me know that she received a call from [facility] regarding the need for a new mattress that is no longer under warrenty. They will meet up on June 14 as a team to discuss this case and will call Dasia on June 15 on their decision in whether they will be able to purchase him a new mattress.
[2024-06-27 15:07] VITALS: BP 137/77; PULSE 91; RESP 16; TEMP 37.1; BMI 35.5
--- NOTE | 2024-06-27 16:54 | PCM.WC.PN ---
History of Present Illness Date of Service: 06/27/24 Chief Complaint: Right ischial pressure sore, Stage IV. History of Wound: This is a 68-year-old white male who presented to the wound healing center with complaints of pressure ulcer to right buttock area with extension to the right ischial bone. This started in October,. Patient's was treating with OTC creams and keeping area clean. The ulcer starting increasing in size and went to the Emergency Department on 02/08/22. CT showed subcutaneous and deep soft tissue involvement and possible early abscess formation. The bone was not addressed. The patient has very limited mobility as a result of a prior spine injury/surgery. He utilizes a wheelchair at all times. He has not been using his billy lift at home to transfer but has been using a board to slide himself from his bed to chair at home. He sits in his wheelchair almost all day, not really able to change positions. They finally obtained a low air loss overlay to their regular mattress at home. A roho cushion was ordered for his wheelchair. Patient is a former smoker, he quit early 2023. Surgery 04/28/22 - Excision right ischial pressure sore, Stage IV, with partial ostectomy for osteomyelitis. Size of wound 8 x 7 x 4.5 cm. Operative tissue cultures positive for MSSA and Cutibacterium acnes. Bone cultures positive for MSSA and Corynebacterium striatum. He is being treated with Augmentin. Pathology from surgery 04/28/22 showed chronic reparative and reactive change. No evidence of acute osteomyelitis. He had a diverting colostomy placed on 11/21/[address] Romero. Surgery 08/26/23 - Excision recurrent right ischial pressure sore, Stage IV, with partial ostectomy for osteomyelitis. Discharged home on 08/27/23. Pathology right ischial pressure sore soft tissue showed focal ulceration, acute and chronic inflammation an granulation tissue reaction. Right ischial bone, partial ostectomy showed fragments of bone with chronic inflammation and reactive changes, negative for acute osteomyelitis. Operative soft tissue cultures from 08/26/23 positive for Serratia marcescens, Staphylococcus capitis, and Corynebacterium striatum. Operative bone cultures from 08/26/23 positive for Serratia marcescens and Corynebacterium striatum. He was started on Levaquin and Doxycycline until he can be seen by ID on 11/04/23. Subjective Subjective Presents today for wound care center follow-up. Patient's has been doing wet-to-dry dressings with Dakin's. No fevers or chills, no abnormal drainage. Patient's pressure offloading bed is being delivered soon. Objective Data Objective Data Vital Signs: Vital Signs Temp Pulse Resp BP O2 Del Method 98.8 F 91 16 137/77 H Room Air 06/27/24 15:07 06/27/24 15:07 06/27/24 15:07 06/27/24 15:07 06/27/24 15:07 Oxygen Delivery Method Room Air Weight: 218 lb 14.704 oz Body Mass Index (BMI) 35.5 Charges/Coding Visit Charges Office Visits / Consults: 82606 OV L3 Est 20min Physical Exam Narrative Right ischial wound Measured 4 x 3 cm and 3 cm deep (down to muscle). No exposed bone at the base, all granulated. No fluid collections. Surrounding skin appears healthy Const alert and oriented x3 General Appearance: cooperative Eyes EOMs intact bilaterally Resp normal respiratory effort Cardio regular rate and regular rhythm GI GI Narrative: Diverting ostomy is present and is productive Debridement Note Debridement Note No debridement was completed: No debridement was completed today Post-Debridement Measurements and Additional Note: Post-Debridement Measurements/Treatment - Nurse 1 - General Ulcer Assessment Start: 05/30/24 15:13 Freq: Status: Active Protocol: WC.LOWDEVORAHT Activity Type Activity Date Activity User E-sign Co-sign Detail Recorded Client Recorded Date Recorded By Document 05/30/24 15:13 [id number] 05/30/24 15:25 KW Document 06/27/24 15:07 [facility] [id number] 06/27/24 15:16 [facility] 05/30/24 06/27/24 15:13 15:07 - Today's Visit Information Type of service Follow-up Visit Follow-up Visit (Physician/AUTOMOBILE RENTAL AGENT (Physician/AUTOMOBILE RENTAL AGENT ) ) Arrival Mode Wheelchair Wheelchair Transfer Assistance Billy Lift Accompanied by Patient Identification Verified (Name & Yes Yes ) Patient Requires Transmission-Based No Precautions Height and Weight Body Mass Index (BMI) 35.5 35.5 BMI Classification Obese Obese Vital Signs Temperature (97.8 F-99.1 F) 98.1 F 98.8 F Temperature Source Temporal Temporal Pulse Rate (60-100) 90 91 Pulse Location Monitor Monitor Respiratory Rate (12-18) 16 16 Respiratory rate source Observation Observation Oxygen Delivery Method Room Air Room Air Blood Pressure (90/60-120/80) 117/79 137/77 H Blood Pressure Mean (mm Hg) 91 97 Source Monitor Monitor Position Sitting Sitting Blood Pressure Location Left Forearm Left Arm History Since Last Visit- (Skip if this is Patient's initial visit) Have you changed medications since your No No last visit? Any new allergies or adverse reactions No No Had a fall/change in ADL's that may No No increase risk of falls Signs or symptoms of abuse and/or No No neglect since last visit Have you been in the hospital since your No No last visit? Has dressing in place as prescribed Yes Yes Has compression in place as prescribed N/A N/A Has offloadiing in place as prescribed N/A N/A Experienced any changes in pain level or No No management Left Footwear Regular Shoe Regular Shoe Right Footwear Regular Shoe Regular Shoe Pain Scale: 0-10 Numeric Is Patient Pain Free? Yes Yes WC - Nurse 1 - General Ulcer Measurement Start: 05/30/24 15:13 Freq: Status: Active Protocol: Activity Type Activity Date Activity User E-sign Co-sign Detail Recorded Client Recorded Date Recorded By Document 05/30/24 15:13 [id number] 05/30/24 15:25 KW Document 06/27/24 15:07 [facility] [id number] 06/27/24 15:16 [facility] 05/30/24 06/27/24 15:13 15:07 Wound Center Nurse 1 #5- R ischium Post op -Current Size (cm) - Length 5.2 4.5 -Current Size (cm) - Width 2.1 1.5 -Current Size (cm) - Depth 5.6 6.7 -Total Square Cm 10.92 6.75 -Date of Last Picture (Recall this 05/30/24 06/27/24 field) -Tunneling Yes Yes -Tunneling Position (O'clock) 2 2 -Tunneling Distance (cm) 7 5.9 -Exudate Amt Large Large -Exudate Type Serosanguineous Serosanguineous -Wound Margin Distinct, Distinct, Outline Outline Attached Attached -Granulation Amt Large (67-100%) Large (67-100%) -Granulation Quality Red Red -Necrosis Amt Small (1-33%) -Necrotic Tissue Type Adherent Slough -Texture (Michelle-wound Skin Appearance) Assessed Assessed -Moisture (Michelle-wound Skin Appearance) Assessed, Assessed, Maceration Maceration -Color (Michelle-wound Skin Appearance) Assessed Assessed -Temperature (Michelle-wound Skin No Abnormality No Abnormality Appearance) (Pt Warm) (Pt Warm) -Tenderness on Palpation (Michelle-wound No No Skin Appearance) -Ulcer Cleansing Soap and Water Soap and Water -Foul Odor after Cleansing No No -Anesthetic Used 4% Lidocaine 5% Lidocaine Solution Gel WC - Nurse 2 - General Ulcer CM Notes Start: 05/30/24 15:13 Freq: Status: Active Protocol: Activity Type Activity Date Activity User E-sign Co-sign Detail Recorded Client Recorded Date Recorded By Document 05/30/24 15:34 JF [id number] 05/30/24 15:39 JF Document 06/27/24 15:43 JF [id number] 06/27/24 15:49 JF Edit Result 06/27/24 15:43 JF (1) [id number] 06/27/24 15:54 JF (1) #5- R ischium Post op - Correct Side, Site, Position Yes => No - Correct Procedure Yes => No - Procedure Performed Yes => No - Type of Procedure Debridement => - Clinical Debridement Muscle / Fascia => - Tissue Removed Muscle,Fascia => - Debridement - Muscle / Fascia, 1st Yes => 20sq cm 05/30/24 06/27/24 15:34 15:43 Wound Center Nurse 2 #5- R ischium Post op -Time 15:34 15:43 -Correct Patient Yes Yes -Correct Side, Site, Position Yes No -Correct Procedure Yes No -Procedure Performed Yes No -Type of Procedure Debridement -Clinical Debridement Muscle / Fascia -Tissue Removed Muscle,Fascia -Post Debridement (cm) - Length 5.4 4 -Post Debridement (cm) - Width 3.9 3 -Post Debridement (cm) - Depth 5.5 3 -Total Square (Post) (cm) 21.06 12 -Area of Debridement (cm) - Length 5.4 4 -Area of Debridement (cm) - Width 3.9 3 -Total Square (Area) (cm) 21.06 12 -Tunneling No No -Undermining/Tunneling No No -Circular Undermining No No -Wound/Ulcer Outcome Not Healed Not Healed -Ulcer Cleansing Rinsed/ Rinsed/ Irrigated with Irrigated with Saline Saline -Foul Odor after Cleansing No No -Bioengineered Tissue No No -Bleeding Controlled with Pressure Pressure -Treatment Response Procedure Procedure Tolerated Well Tolerated Well -Offloading No No -Pressure Reduction Wheelchair Wheelchair cushion cushion -Debridement - Muscle / Fascia, 1st Yes 20sq cm -Debridement, Muscle/Fascia, ea addt'l 1 20sq cm or part thereof Pain Scale: 0-10 Numeric Is Patient Pain Free? Yes Yes - Nurse 3 - General Ulcer D/C NN Start: 05/30/24 15:13 Freq: Status: Active Protocol: Activity Type Activity Date Activity User E-sign Co-sign Detail Recorded Client Recorded Date Recorded By Document 05/30/24 15:45 DL [id number] 05/30/24 15:48 DL Document 06/27/24 16:00 KW [id number] 06/27/24 16:00 KW 05/30/24 06/27/24 15:45 16:00 Wound Care Center Nurse 3 #5- R ischium Post op -Ulcer Cleansing Rinsed/ Irrigated with Saline -Foul Odor after Cleansing No -Primary Dressing Applied Hysept -Other Dressing dakins dakins -Primary Dressing Covered/Secured with Dry Gauze, Dry Gauze, Secured with Secured with Tape Tape -Other Covering ABD -Hysept 1 -Wound Comment(s) Dressing applied per Ramsey silver. Treatment Response Procedure Tolerated Well Pain Scale: 0-10 Numeric Is Patient Pain Free? Yes Yes - Visit Discharge Discharge Condition Stable Stable Ambulatory Status Wheelchair Wheelchair Transportation Private Auto Private Auto Medication Reconcilliation completed & No provided to patient/care provider Clinical Summary of Care Provided Yes Facility Type Home Health Orders Sent Yes Assessment/Plan Assessment/Plan (1) Right ischial pressure sore: CODE(S): L89.319 - Pressure ulcer of right buttock, unspecified stage (2) Right ischial pressure sore, stage 4: CODE(S): L89.314 - Pressure ulcer of right buttock, stage 4 PLAN: Wound care - Dakin's 0.25% moistened gauze packed into the ulcer twice daily and prn covered with ABD or gauze. Wash the ulcer and michelle wound with soap and water at the time of the dressing change. His has been working on getting the [facility] records about his spine surgery and his prognosis. She states that she was told it was sent and received but nobody in the hospital system has been able to locate his chart. We will continue to try to get these records. Encouraged increased protein intake to help with wound healing. Waiting to hear from the [facility] to see if they can assist them financially for a new low air loss mattress. PLAN FROM 21 Mar 2024: I would like to try the VAC again. Patient and reluctant 2/2 problems with it in the past being so close to gluteal crease/perineum. For now, agree with continued Dakins. We talked about practicality of flap reconstruction and risks/benefits, and they're unsure of the benefit, especially if risks of failure/need for further wound care are so high and they're required to have strict and uncomfortable positioning restrictions. F/u and re-address in 2 weeks. 04 Apr 2024: would not like to do wound vac. Reports that it causes too many problems with leaking, ect. They're going to consider options for reconstruction, but are concerned about post-operative rehab and pressure offloading (practicality of not being able to be in a wheelchair). Mrs. Covington is going to call me and discuss further after she and her have discussed more. PLAN FROM 02 May 2024: After thorough discussion of options for potential reconstruction, and Mrs. Covington would like to defer reconstruction at this time and continue local wound care regimen. Follow-up in 2 weeks for wound check. Continue current regimen. Plan from 30 May 2024: Making improvements with dressings. Continue offloading and the Dakins WTD. O.K. for monthly wound checks (challenge for the family to come more often than this, and wound is open and healthy). Plan to continue to promote granulation (has granulated over bone with current regimen). PLAN FROM 27 June 2024: Wound check today demonstrated healthy granulating wound without any signs of fluid collection or other signs of infection. I believe that the Dakin's wet-to-dry is the best dressing at this point to maintain a healthy wound. They would like to follow-up in 1 month which I think is reasonable for just a wound check.
--- NOTE | 2024-06-29 11:24 | WC ---
PHOTO 06/27/24 RIGHT ISCHIUM
== END 2024-06-27 23:59 | disposition home or self-care (01) ==
LOC: WC 15:30
PROVIDERS: PCP Family Medicine; Referring Provider Physician Assistant; Visit Provider Surgery Plastic and Reconstructive Surgery
DX: L89.314 Pressure ulcer of right buttock, stage 4 (principal); Z93.3 Colostomy status; E46 Unspecified protein-calorie malnutrition; Z87.891 Personal history of nicotine dependence; Z79.890 Hormone replacement therapy; Z79.899 Other long term (current) drug therapy; Z99.3 Dependence on wheelchair; Z87.39 Personal history of other diseases of the musculoskeletal system and connective tissue
CPT/HCPCS: 11043; 11046; 97803; 99214; G0463

== ENCOUNTER → 2024-07-11 | Outpatient (CLI) | payer MEDICARE, SELFPAY ==
[2024-07-11 17:44] LABS: Absolute Lymphocyte Count 2.11 X10^3/uL (0.83-4.51); Absolute Neutrophil Count 5.4 X10^3/uL (2.0-7.7); Basophil# 0.07 X10^3/uL; Basophil% 0.8 % (0-1); Eosinophil# 0.33 X10^3/uL; Eosinophils% 3.7 % (0-5); Hematocrit 42.1 % (40-54); Hemoglobin 13.6 g/dL (13.0-16.5); Lymphocyte # 2.11 X10^3/ul (0.83-4.51); Lymphocyte % 23.9 % (19-41); Mean Corp Hgb Conc 32.3 g/dL (32-36); Mean Corpuscular Hgb 28.9 pg (27.0-32.0); Mean Corpuscular Volume 89.4 fL (80-94); Mean Platelet Vol. 9.4 fl (6.2-12.0); Monocyte% 10.2 % (0-10); NRBC Flagged by Analyzer 0 % (0-5); Neutrophil # 5.36 X10^3/uL (2.7-7.7); Neutrophil % 60.6 % (47-70); Platelet Count 275 K/mm3 (150-450); RBC Distribution Width CV 16.9 % (11.6-14.6); RBC Distribution Width SD 55.3 fl (35.1-43.9); Red Blood Count 4.71 M/mm3 (4.6-6.2); White Blood Count 8.8 K/mm3 (4.4-11.0)
[2024-07-11 18:36] LABS: Cholesterol 189 mg/dL (<=200); High Density Lipoprotein 37 mg/dL; Low Density Lipoprotein Calc. 88 mg/dL; PSA,Total - Annual Screen 3.78 ng/mL (0.02-4.00); Triglycerides 318 mg/dL; Very Low Density Lipoprotein 64 mg/dL (5-40); cholesterol:hdl ratio screen 5.07
[2024-07-11 18:40] LABS: ALB/GLOB Ratio 1.1 RATIO (0.9-2.4); AST(SGOT) 32 U/L (<=37); Alanine Aminotransfer ALT/SGPT 36 U/L (<=46); Albumin, Serum 3.7 g/dL (3.4-4.8); Alkaline Phosphatase 114 U/L (40-129); Anion Gap 13 (5-15); BUN 10 mg/dL (4-19); BUN/Creat Ratio 15.1 RATIO (10-20); Calcium,Total 9.2 mg/dL (7.6-11.0); Carbon Dioxide 21.6 mmol/L (21.0-32.0); Chloride 105 mmol/L (98-108); Creatinine, Serum 0.64 mg/dL (0.70-1.20); EST Glomerular Filtration Rate 104 (>60); Globulin 3.5 g/dL (2.2-4.2); Glucose 91 mg/dL (70-99); Potassium 4.2 mmol/L (3.3-5.1); Protein, Total 7.2 g/dL (5.9-8.4); Sodium Level 139 mmol/L (133-145); Total Bilirubin 0.22 mg/dL (0.00-1.30)
[2024-07-13 04:07] LABS: LDL, Direct 120295 114 mg/dL (0-99)
== END | disposition home or self-care (01) ==
LOC: MTLAB 16:33
PROVIDERS: PCP Family Medicine; Referring Provider Family Medicine; Visit Provider Family Medicine
DX: E03.9 Hypothyroidism, unspecified (principal); E78.5 Hyperlipidemia, unspecified; R03.0 Elevated blood-pressure reading, without diagnosis of hypertension; R32 Unspecified urinary incontinence; Z12.5 Encounter for screening for malignant neoplasm of prostate
CPT/HCPCS: 36415; 80053; 80061; 83721; 84153; 84439; 84443; 84481; 85025; G0103

== ENCOUNTER 2024-07-25 10:14 | Outpatient (RCR) | payer MEDICARE, SELFPAY ==
[2024-06-28 00:51] VITALS: BP 137/77; PULSE 91; RESP 16; TEMP 37.1; BMI 35.5
[2024-07-25 10:49] VITALS: BP 124/70; PULSE 79; RESP 18; TEMP 36.3; BMI 35.5
--- NOTE | 2024-07-26 08:41 | WC ---
PHOTO 07/25/24 RIGHT ISCHIUM POST OP
--- NOTE | 2024-07-26 21:50 | PCM.WC.PN ---
History of Present Illness Date of Service: 07/25/24 Chief Complaint: Right ischial pressure sore, Stage IV. History of Wound: This is a 68-year-old white male who presented to the wound healing center with complaints of pressure ulcer to right buttock area with extension to the right ischial bone. This started in October,. Patient's was treating with OTC creams and keeping area clean. The ulcer starting increasing in size and went to the Emergency Department on 02/08/22. CT showed subcutaneous and deep soft tissue involvement and possible early abscess formation. The bone was not addressed. The patient has very limited mobility as a result of a prior spine injury/surgery. He utilizes a wheelchair at all times. He has not been using his lm lift at home to transfer but has been using a board to slide himself from his bed to chair at home. He sits in his wheelchair almost all day, not really able to change positions. They finally obtained a low air loss overlay to their regular mattress at home. A roho cushion was ordered for his wheelchair. Patient is a former smoker, he quit early 2023. Surgery 04/28/22 - Excision right ischial pressure sore, Stage IV, with partial ostectomy for osteomyelitis. Size of wound 8 x 7 x 4.5 cm. Operative tissue cultures positive for MSSA and Cutibacterium acnes. Bone cultures positive for MSSA and Corynebacterium striatum. He is being treated with Augmentin. Pathology from surgery 04/28/22 showed chronic reparative and reactive change. No evidence of acute osteomyelitis. He had a diverting colostomy placed on 11/21/[address] Romero. Surgery 08/26/23 - Excision recurrent right ischial pressure sore, Stage IV, with partial ostectomy for osteomyelitis. Discharged home on 08/27/23. Pathology right ischial pressure sore soft tissue showed focal ulceration, acute and chronic inflammation an granulation tissue reaction. Right ischial bone, partial ostectomy showed fragments of bone with chronic inflammation and reactive changes, negative for acute osteomyelitis. Operative soft tissue cultures from 08/26/23 positive for Serratia marcescens, Staphylococcus capitis, and Corynebacterium striatum. Operative bone cultures from 08/26/23 positive for Serratia marcescens and Corynebacterium striatum. He was started on Levaquin and Doxycycline until he can be seen by ID on 11/04/23. Subjective Subjective Presents today for wound care center follow-up. Patient's has been doing wet-to-dry dressings with Dakin's. No fevers or chills, no abnormal drainage. Patient's pressure offloading bed has been delivered and is functioning well. comfortable with dressing changes and would like to proceed with this treatment. We discussed again briefly today possibility of eventual reconstruction Objective Data Objective Data Vital Signs: Vital Signs Temp Pulse Resp BP O2 Del Method 97.3 F L 79 18 124/70 H Room Air 07/25/24 10:49 07/25/24 10:49 07/25/24 10:49 07/25/24 10:49 07/25/24 10:49 Oxygen Delivery Method Room Air Weight: 218 lb 14.704 oz Body Mass Index (BMI) 35.5 Charges/Coding Visit Charges Office Visits / Consults: 61781 OV L3 Est 20min Physical Exam Narrative Right ischial wound Measured 4 x 3.5 cm and 3 cm deep (down to muscle). No exposed bone at the base, all granulated. No fluid collections. Surrounding skin appears healthy Const alert and oriented x3 General Appearance: cooperative Eyes EOMs intact bilaterally Resp normal respiratory effort Cardio regular rate and regular rhythm GI GI Narrative: Diverting ostomy is present and is productive Debridement Note Debridement Note No debridement was completed: No debridement was completed today Post-Debridement Measurements and Additional Note: Post-Debridement Measurements/Treatment - Nurse 1 - General Ulcer Assessment Start: 07/25/24 10:48 Freq: Status: Active Protocol: DILCIA.NORIS Activity Type Activity Date Activity User E-sign Co-sign Detail Recorded Client Recorded Date Recorded By Document 07/25/24 10:49 KW [id number] 07/25/24 11:04 KW 07/25/24 10:49 - Today's Visit Information Type of service Follow-up Visit (Physician/VESSEL OPERATOR ) Arrival Mode Wheelchair Accompanied by Patient Identification Verified (Name & Yes ) Height and Weight Body Mass Index (BMI) 35.5 BMI Classification Obese Vital Signs Temperature (97.8 F-99.1 F) 97.3 F L Temperature Source Temporal Pulse Rate (60-100) 79 Pulse Location Monitor Respiratory Rate (12-18) 18 Respiratory rate source Observation Oxygen Delivery Method Room Air Blood Pressure (90/60-120/80) 124/70 H Blood Pressure Mean (mm Hg) 88 Source Monitor Position Sitting Blood Pressure Location Right Arm History Since Last Visit- (Skip if this is Patient's initial visit) Have you changed medications since your No last visit? Any new allergies or adverse reactions No Had a fall/change in ADL's that may No increase risk of falls Signs or symptoms of abuse and/or No neglect since last visit Have you been in the hospital since your No last visit? Has dressing in place as prescribed Yes Has compression in place as prescribed N/A Has offloadiing in place as prescribed N/A Experienced any changes in pain level or No management Left Footwear Regular Shoe Right Footwear Regular Shoe Pain Scale: 0-10 Numeric Is Patient Pain Free? Yes - Nurse 1 - General Ulcer Measurement Start: 07/25/24 10:48 Freq: Status: Active Protocol: Activity Type Activity Date Activity User E-sign Co-sign Detail Recorded Client Recorded Date Recorded By Document 07/25/24 10:49 SHAISTA [id number] 07/25/24 11:04 SHAISTA 07/25/24 10:49 Wound Center Nurse 1 #5- R ischium Post op -Current Size (cm) - Length 4 -Current Size (cm) - Width 3.1 -Current Size (cm) - Depth 6.5 -Total Square Cm 12.4 -Date of Last Picture (Recall this 07/25/24 field) -Exudate Amt Medium -Exudate Type Serosanguineous -Wound Margin Distinct, Outline Attached -Granulation Amt Large (67-100%) -Granulation Quality Red -Necrosis Amt None Present (0 %) -Texture (Michelle-wound Skin Appearance) Assessed -Moisture (Michelle-wound Skin Appearance) Assessed -Color (Michelle-wound Skin Appearance) Assessed -Tenderness on Palpation (Michelle-wound No Skin Appearance) -Ulcer Cleansing Soap and Water -Foul Odor after Cleansing No -Anesthetic Used 4% Lidocaine Solution - Nurse 2 - General Ulcer CM Notes Start: 07/25/24 10:48 Freq: Status: Active Protocol: Activity Type Activity Date Activity User E-sign Co-sign Detail Recorded Client Recorded Date Recorded By Document 07/25/24 11:23 DS [id number] 07/25/24 11:23 DS 07/25/24 11:23 Wound Center Nurse 2 -Time 11:23 -Correct Patient Yes -Correct Side, Site, Position Yes -Procedure Performed No -Post Debridement (cm) - Length 4.0 -Post Debridement (cm) - Width 3.5 -Post Debridement (cm) - Depth 3.0 -Total Square (Post) (cm) 14.00 -Area of Debridement (cm) - Length 4.0 -Area of Debridement (cm) - Width 3.5 -Total Square (Area) (cm) 14.00 -Tunneling No -Undermining/Tunneling No -Circular Undermining No -Wound/Ulcer Outcome Not Healed Pain Scale: 0-10 Numeric Is Patient Pain Free? Yes - Nurse 3 - General Ulcer D/C NN Start: 07/25/24 10:48 Freq: Status: Active Protocol: Activity Type Activity Date Activity User E-sign Co-sign Detail Recorded Client Recorded Date Recorded By Document 07/25/24 11:43 SHAISTA [id number] 07/25/24 11:43 07/25/24 11:43 Wound Care Center Nurse 3 #5- R ischium Post op -Other Dressing dakins gauze -Primary Dressing Covered/Secured with Dry Gauze, Secured with Tape Pain Scale: 0-10 Numeric Is Patient Pain Free? Yes - Visit Discharge Discharge Condition Stable Ambulatory Status Wheelchair Transportation Private Auto Medication Reconcilliation completed & No provided to patient/care provider Clinical Summary of Care Provided Yes Assessment/Plan Assessment/Plan (1) Right ischial pressure sore: CODE(S): L89.319 - Pressure ulcer of right buttock, unspecified stage (2) Right ischial pressure sore, stage 4: CODE(S): L89.314 - Pressure ulcer of right buttock, stage 4 PLAN: Wound care - Dakin's 0.25% moistened gauze packed into the ulcer twice daily and prn covered with ABD or gauze. Wash the ulcer and michelle wound with soap and water at the time of the dressing change. His has been working on getting the [facility] records about his spine surgery and his prognosis. She states that she was told it was sent and received but nobody in the hospital system has been able to locate his chart. We will continue to try to get these records. Encouraged increased protein intake to help with wound healing. Waiting to hear from the [employer] to see if they can assist them financially for a new low air loss mattress. PLAN FROM 21 Mar 2024: I would like to try the VAC again. Patient and reluctant 2/2 problems with it in the past being so close to gluteal crease/perineum. For now, agree with continued Dakins. We talked about practicality of flap reconstruction and risks/benefits, and they're unsure of the benefit, especially if risks of failure/need for further wound care are so high and they're required to have strict and uncomfortable positioning restrictions. F/u and re-address in 2 weeks. 04 Apr 2024: would not like to do wound vac. Reports that it causes too many problems with leaking, ect. They're going to consider options for reconstruction, but are concerned about post-operative rehab and pressure offloading (practicality of not being able to be in a wheelchair). Mrs. Covington is going to call me and discuss further after she and her have discussed more. PLAN FROM 02 May 2024: After thorough discussion of options for potential reconstruction, and Mrs. Covington would like to defer reconstruction at this time and continue local wound care regimen. Follow-up in 2 weeks for wound check. Continue current regimen. Plan from 30 May 2024: Making improvements with dressings. Continue offloading and the Dakins WTD. O.K. for monthly wound checks (challenge for the family to come more often than this, and wound is open and healthy). Plan to continue to promote granulation (has granulated over bone with current regimen). PLAN FROM 27 June 2024: Wound check today demonstrated healthy granulating wound without any signs of fluid collection or other signs of infection. I believe that the Dakin's wet-to-dry is the best dressing at this point to maintain a healthy wound. They would like to follow-up in 1 month which I think is reasonable for just a wound check. Plan from 26 July 2024: Continue Dakin's wet-to-dry dressings twice daily. Patient's happy with that plan. Deferred debridement today as wound really healthy. Follow-up in 1 month for a wound check
== END 2024-07-27 23:59 | disposition home or self-care (01) ==
LOC: WC 10:14
PROVIDERS: PCP Family Medicine; Referring Provider Physician Assistant; Visit Provider Surgery Plastic and Reconstructive Surgery
DX: L89.214 Pressure ulcer of right hip, stage 4 (principal); Z87.891 Personal history of nicotine dependence
CPT/HCPCS: 99213; G0463

== ENCOUNTER 2024-07-29 19:05 | Inpatient (IN) | payer MEDICARE, SELFPAY ==
[2024-07-29] VITALS (8 sets, daily range): BP systolic 116–137; BP diastolic 55–89; PULSE 78–118; RESP 18–28; TEMP 36.8–37.2; O2SAT 91–98; BMI 35.6; BMI 34.9
--- NOTE | 2024-07-29 19:18 | EKG12_ITS ---
Test Reason : FEVER Blood Pressure : */* mmHG Vent. Rate : 115 BPM Atrial Rate : 115 BPM P-R Int : 156 ms QRS Dur : 86 ms QT Int : 304 ms P-R-T Axes : 61 56 64 degrees QTcB Int : 420 ms Sinus tachycardia Otherwise normal ECG Confirmed by LEWIS GOOD, PRASHANT ([id number]), graphic editor MAMIE JUAREZ ([id number]) on 08/05/2024 12:39:42 PM Referred By: Isha Zurita Confirmed By: PRASHANT SAUCEDO MD
--- NOTE | 2024-07-29 19:40 | EX.ED.DYSGE1 ---
HPI History of Present Illness Chief Complaint: Fever Narrative Narrative: Patient is a 68-year-old male with past medical history of right ischial pressure sore stage IV, COPD, hypercholesteremia, colostomy bag in place, suprapubic catheter in place, paraplegic who presents to the emergency department chief complaint of fever. According to the patient he has had a fever at home for the last 2 days and has no other complaints. Patient states that he has had increased output from his colostomy bag when inquiring about this. Patient denies any sick contacts. He states he is not coughing. [facility] Medical History Other acute postprocedural pain Paraplegic spinal paralysis History of pressure ulcer Wears glasses Thyroid disease Arthritis Uses wheelchair High cholesterol Gastric reflux COPD (chronic obstructive pulmonary disease) Hx of fracture of arm Hx of head injury Bedridden Smoker Right ischial pressure sore, stage 4 Home Medications ?Medication ?Instructions ?Recorded ?Last Taken ?Type baclofen 10 mg tablet 15 mg PO TID spasm 12/17/17 06/09/24 History levothyroxine 125 mcg tablet 125 mcg PO DAILY 12/17/17 06/09/24 History tamsulosin 0.4 mg capsule 0.4 mg PO BID 12/17/17 06/09/24 History icosapent ethyl 1 gram capsule 2 g PO BID cholesterol 02/08/22 06/09/24 History (Vascepa) acetaminophen 650 mg 1,300 mg PO Q8H PRN Pain 04/25/22 Unknown History tablet,extended release esomeprazole magnesium 40 mg 40 mg PO DAILY 06/16/22 06/09/24 History capsule,delayed release (Nexium) amoxicillin 875 mg-potassium 1 tab PO BID 7 days #14 tabs 06/12/24 Unknown Rx clavulanate 125 mg tablet linezolid 600 mg tablet 600 mg PO BID 7 days #14 tabs 06/12/24 Unknown Rx Allergy/AdvReac Type Severity Reaction Status Date / Time Environmental Allergies: Allergy NEEDS Verified 07/29/24 19:17 Uncoded (dust) FOLLOW-UP house dust Allergy Other Verified 07/29/24 19:17 pollen extracts Allergy NEEDS Verified 07/29/24 19:17 FOLLOW-UP Surgical History S/P colostomy History of back surgery Hx of neck surgery Hx of spinal surgery Social History (Updated 07/29/24 @ 21:[address] Isha Zurita MD) household members: spouse Smoking Status: Former smoker alcohol intake: never substance use type: does not use ROS ROS ED ROS Narrative Constitutional: Complains of fever as noted above denies chills, Ricardo, days, headaches Eyes: Denies change in vision double vision blurred Cardiovascular: Denies chest pain Respiratory: Shortness of breath coughing Abdomen: Denies abdominal pain nausea vomiting states there is increased diarrhea and output from colostomy bag as noted above : Denies urinary symptoms states that his suprapubic catheter Neurological: Denies any new numbness, weakness, tingling Musculoskeletal: Denies back pain EXAM Physical Exam Narrative Exam Narrative: General: Patient lying in bed rest comfortably did not appear to be in acute distress Head: Atraumatic, normocephalic Eyes: PERRL bilaterally, EOMI bilaterally, no conjunctival injection noted Neck: Soft, supple, trachea midline Cardiovascular: Patient tachycardic with regular rhythm Respiratory: Coarse breath sounds bilaterally no wheezing noted Abdomen: Soft, nondistended, nontender to palpation, colostomy bag in place with adequate output noted stoma site pink no surrounding erythema or no concern for infection Extremities: No pedal edema on exam cardio pulses +2/4 in the bilateral extremities Neurological: Patient follow commands that he was at [facility] Skin: Warm, dry no petechia no purpura no sloughing skin noted Const Vital Signs: 07/29/24 19:07 07/29/24 19:15 07/29/24 19:17 Temperature 98.8 F 98.8 F Temperature Source Oral Oral Pulse Rate 118 H 117 H Respiratory Rate 28 H 28 H Respiratory Effort Labored Respiratory Pattern Tachypnea Blood Pressure 116/55 L 116/55 L Blood Pressure Mean 75 75 Pulse Ox 91 92 Oxygen Delivery Method Room Air Room Air 07/29/24 20:15 07/29/24 20:58 07/29/24 21:00 Temperature 98.8 F 98.9 F Temperature Source Oral Oral Pulse Rate 109 H 107 H Respiratory Rate 24 H 25 H Respiratory Effort Respiratory Pattern Blood Pressure 137/82 H 130/80 H Blood Pressure Mean 100 96 Pulse Ox 96 96 96 Oxygen Delivery Method Room Air Room Air Room Air MDM MDM MDM Narrative Medical decision making narrative: Patient is a 68-year-old male who presents to the emerged part with chief complaint of fever for the past few days with increased colostomy output. On the differential diagnosis includes but not limited to viral gastroenteritis, UTI, pneumonia. Once workup is obtained reviewed he will be reevaluated. Patient be given 30 cc/kg bolus of IV fluids this was ordered at 1919. Patient was given vancomycin and Zosyn at 2019. Patient was noted to have leukocytosis 20,000 at this point in time no identifiable source infection however he has concern for multiple different sources therefore these were ordered. Patient CBC was reviewed and showed leukocytosis of 20,000, hemoglobin stable 13, platelet count was 309. Patient INR normal at 1, PT of 13.7. Patient sodium is 140, potassium normal 3.8, creatinine normal at 0.83. Patient lactic acid elevated at 3, AST and ALT were 15 and 20 respectively. Patient urinalysis was significant for urinary tract infection with positive nitrates 500 leukocyte esterase greater than 100 white cells with 3+ bacteria patient's chest x-ray reviewed by myself by radiology showed vascular congestion or viral infection. Patient's EKG reviewed showed sinus tachycardia the rate of 115 bpm. Reperfusion assessment performed at 9:16 PM patient remains normal to hypertensive therefore no vasopressors indicated. Will discuss case with hospitalist for admission. Did discuss the case with hospitalist Dr. Zurita who accept the patient for admission. Patient and at bedside were updated with the plan they are agreeable all question concerns answered Lab Data Labs: Laboratory Results - last 24 hr 07/29/24 07/29/24 19:19 19:50 WBC 19.9 H RBC 4.47 L Hgb 13.0 Hct 39.6 L MCV 88.6 MCH 29.1 MCHC 32.8 RDW Std Deviation 55.2 H RDW Coeff of Josue 17.1 H Plt Count 309 MPV 9.8 Immature Gran % (Auto) 0.900 Neut % (Auto) 86.7 H Lymph % (Auto) 5.5 L [place] % (Auto) 6.2 Eos % (Auto) 0.4 Baso % (Auto) 0.3 Absolute Neuts (auto) 17.3 H Absolute Lymphs (auto) 1.10 Nucleated RBC % 0 PT 13.7 INR 1.0 APTT 30.0 Sodium 140 Potassium 3.8 Chloride 104 Carbon Dioxide 22.9 Anion Gap 13 BUN 12 Creatinine 0.83 Estim Creat Clear Calc 95.77 Est GFR (MDRD) Non-Af 96 BUN/Creatinine Ratio 14.8 Glucose 183 H Lactic Acid 3.0 H* Calcium 9.2 Total Bilirubin 0.24 AST 15 ALT 20 Alkaline Phosphatase 119 Total Protein 7.8 Albumin 3.4 Globulin 4.3 H Albumin/Globulin Ratio 0.8 L Urine Color Yellow Urine Clarity Turbid Urine pH 6.0 Ur Specific [place] 1.015 Urine Protein 100 H Urine Glucose (UA) 250 H Urine Ketones 5 H Urine Occult Blood 250 H Urine Nitrite Positive H Urine Bilirubin Negative Urine Urobilinogen Normal Ur Leukocyte Esterase 500 H Urine RBC 10-25 SEEN Urine WBC >100 SEEN Ur Squamous Epith Cells 0-5 SEEN Urine Bacteria 3+ Urine Mucus 0 SEEN Radiography Diagnostic Testing: Clinical Impression(s) from Imaging Studies Chest X-Ray 07/29/24 20:00 IMPRESSION: Findings suggestive of vascular congestion or viral infection. Reading Location: [facility] Discharge Plan Triage Chief Complaint: Fever ED Provider: Andre Ferreira Dx/Rx/DC Orders Clinical Impression: Urinary tract infection, Acidosis, lactic, Chronic suprapubic catheter Prescriptions: No Action tamsulosin 0.4 MG capsule 0.4 mg PO BID baclofen 10 MG tablet 15 mg PO TID Patient Comments: 1.5 TABS = 15 MG TID levothyroxine 125 MCG tablet 125 mcg PO DAILY icosapent ethyl [Vascepa] 1 gram Capsule 2 g PO BID acetaminophen 650 mg Tablet Extended Release 1,300 mg PO Q8H PRN (Reason: Pain) esomeprazole magnesium [Nexium] 40 mg Capsule,Delayed Release(Dr/Ec) 40 mg PO DAILY amoxicillin-pot clavulanate 875-125 mg tablet 1 tab PO BID 7 Days Qty: 14 0RF linezolid 600 mg tablet 600 mg PO BID 7 Days Qty: 14 0RF Primary Care Provider: Brian Zimmerman Referrals: Brian Zimmerman MD [Primary Care Provider] - Print Language: Zimbabwean Disposition Disposition: [facility]
--- NOTE | 2024-07-29 20:00 | RAD_ITS ---
PROCEDURE: CHEST PA AND LATERAL 07/29/2024 REASON FOR EXAM: FEVER TECHNIQUE: Frontal and lateral views of the chest. COMPARISON: 06/09/2024 FINDINGS: Hardware: None Heart: Heart size is mildly enlarged. Mediastinum: There are atherosclerotic calcifications of the thoracic aorta. Lungs: Mild bilateral interstitial thickening. Bibasilar atelectasis. No pneumothorax. No pleural effusion. Bones: Degenerative changes are identified within the thoracic spine. RAD/Chest PA and Lateral IMPRESSION: Findings suggestive of vascular congestion or viral infection. Reading Location[facility] [place]
[2024-07-29 20:09] LABS: Mucous, Urine 0 SEEN /hpf (<or=2+)
[2024-07-29 20:16] LABS: Absolute Neutrophil Count 17.3 X10^3/uL (2.0-7.7); Basophil# 0.06 X10^3/uL; Basophil% 0.3 % (0-1); Eosinophil# 0.07 X10^3/uL; Eosinophils% 0.4 % (0-5); Hematocrit 39.6 % (40-54); Lymphocyte % 5.5 % (19-41); Mean Corp Hgb Conc 32.8 g/dL (32-36); Mean Corpuscular Hgb 29.1 pg (27.0-32.0); Mean Corpuscular Volume 88.6 fL (80-94); Mean Platelet Vol. 9.8 fl (6.2-12.0); Monocyte# 1.24 X10^3/uL; Monocyte% 6.2 % (0-10); NRBC Flagged by Analyzer 0 % (0-5); Neutrophil # 17.25 X10^3/uL (2.7-7.7); Neutrophil % 86.7 % (47-70); Platelet Count 309 K/mm3 (150-450); RBC Distribution Width CV 17.1 % (11.6-14.6); RBC Distribution Width SD 55.2 fl (35.1-43.9); Red Blood Count 4.47 M/mm3 (4.6-6.2); White Blood Count 19.9 K/mm3 (4.4-11.0)
[2024-07-29 20:22] LABS: Color, Urine Yellow (Yellow); Glucose, Dipstick 250 mg/dl (Normal); Ketone-Dipstick 5 mg/dl (Negative); Leukocyte Esterase-Dipstick 500 /ul (Negative); Nitrite-Dipstick Positive (Negative); Occult Blood-Urine 250 /ul (Negative); Protein-Dipstick 100 mg/dl (Negative); Specific Gravity, Urine 1.015 (1.002-1.030); Urine Bilirubin Dipstick Negative (Negative); Urine Clarity Turbid (Clear); Urine Urobilinogen Normal (Normal)
[2024-07-29 20:28] LABS: Prothrombin Time (Protime)PT. 13.7 SECONDS (11.7-14.9)
[2024-07-29] MEDS: 0.9% Normal Saline (1000mL) 1,000 ML 999 ML IV (20:56)
[2024-07-29] MEDS: Piperacil/Tazobactam 4.5 GM in 0.9% Normal Saline (100mL MB+) 100 ML IV (20:56)
[2024-07-29 21:01] LABS: White Blood Cells >100 SEEN /hpf (0-5)
[2024-07-29 21:09] LABS: ALB/GLOB Ratio 0.8 RATIO (0.9-2.4); AST(SGOT) 15 U/L (<=37); Alanine Aminotransfer ALT/SGPT 20 U/L (<=46); Albumin, Serum 3.4 g/dL (3.4-4.8); Alkaline Phosphatase 119 U/L (40-129); Anion Gap 13 (5-15); BUN 12 mg/dL (4-19); BUN/Creat Ratio 14.8 RATIO (10-20); Calcium,Total 9.2 mg/dL (7.6-11.0); Carbon Dioxide 22.9 mmol/L (21.0-32.0); Chloride 104 mmol/L (98-108); Creatinine, Serum 0.83 mg/dL (0.70-1.20); EST Glomerular Filtration Rate 96 (>60); Estimated Creatinine Clearance 95.77 ml/min (50-250); Globulin 4.3 g/dL (2.2-4.2); Glucose 183 mg/dL (70-99); Potassium 3.8 mmol/L (3.3-5.1); Protein, Total 7.8 g/dL (5.9-8.4); Sodium Level 140 mmol/L (133-145); Total Bilirubin 0.24 mg/dL (0.00-1.30)
[2024-07-29 21:09] LABS: Bacteria 3+ /hpf (None Seen); Red Blood Cells-Urine 10-25 SEEN /hpf (0-5)
[2024-07-29 21:10] LABS: Squamous Epithelial Cells - UA 0-5 SEEN /hpf (0-5)
--- NOTE | 2024-07-29 21:27 | PCM.HP.STD ---
HPI - General General Date of Admission: 07/29/24 Date of Service: 07/29/24 Chief Complaint: Fever. HPI Narrative The patient is a 68 y/o M w/ PMHx: Paraplegic spinal paralysis status post previous neck and spinal surgery using a wheelchair chronically complicated by ischial pressure sores with colostomy as well as suprapubic catheter in place, HTN, HLD, GERD, Hypothyroidism, COPD, Former tobacco use who presents to the [facility] ED on 07/29/2024 with history of onset fever for the last 2 days with increased recent output from his colostomy bag otherwise no acute complaints with no ill contacts prompting ED evaluation to be cautious. Workup in the ED included T98.8, heart rate 118, BP 116/55, respiratory rate 28, 91% on room air with most recent repeat vitals T98.8 Oral, heart rate 117, BP 116/55, respiratory rate 28, 92% on room air, CBC with WBC 19.9, he 1 13, platelet 309 with left shift, unremarkable coags, CMP with glucose 183 otherwise not marked appearing, chest x-ray with findings of mild bilateral interstitial thickening and bibasilar atelectasis, lactic acid 3.0, urinalysis turbid with protein 100, glucose 250, ketone 5, occult blood 250, nitrate positive, leukocyte Estrace 500, urine RBCs 10-25, urine WBCs greater than 100 with 3+ urine bacteria, blood culture x 2 pending per ED, urine culture pending per ED, rapid SARS COVID/influenza/RSV pending upon evaluation. Most recent cultures noted 06/09/2024 with 50-80,000 Klebsiella, greater than 100,000 Staphylococcus aureus. In the ED patient initiated on 30 cc/kg IV fluids, administered IV Zosyn and IV vancomycin also. [facility] Medical History Other acute postprocedural pain Paraplegic spinal paralysis History of pressure ulcer Wears glasses Thyroid disease Arthritis Uses wheelchair High cholesterol Gastric reflux COPD (chronic obstructive pulmonary disease) Hx of fracture of arm Hx of head injury Bedridden Smoker Right ischial pressure sore, stage 4 Home Medications ?Medication ?Instructions ?Recorded ?Last Taken ?Type baclofen 10 mg tablet 15 mg PO TID spasm 12/17/17 06/09/24 History levothyroxine 125 mcg tablet 125 mcg PO DAILY high cholestro 12/17/17 06/09/24 History tamsulosin 0.4 mg capsule 0.4 mg PO BID gu 12/17/17 06/09/24 History icosapent ethyl 1 gram capsule 2 g PO BID cholesterol 02/08/22 06/09/24 History (Vascepa) acetaminophen 650 mg 1,300 mg PO Q8H PRN Pain 04/25/22 Unknown History tablet,extended release Allergy/AdvReac Type Severity Reaction Status Date / Time Environmental Allergies: Allergy NEEDS Verified 07/29/24 19:17 Uncoded (dust) FOLLOW-UP house dust Allergy Other Verified 07/29/24 19:17 pollen extracts Allergy NEEDS Verified 07/29/24 19:17 FOLLOW-UP Family History Mother CVA (cerebral vascular accident) Hypertension Father Hypertension Prostate CA Surgical History S/P colostomy History of back surgery Hx of neck surgery Hx of spinal surgery Social History household members: spouse Smoking Status: Former smoker alcohol intake: never substance use type: does not use ROS ROS Narrative Admission Review of Systems: CONSTITUTIONAL: No weight loss, + fever, chills, weakness or fatigue. HEENT: Eyes: No visual loss, blurred vision, double vision or yellow sclerae. Ears, Nose, Throat: No hearing loss, sneezing, congestion, runny nose or sore throat. SKIN: No rash or itching, lesions except + significant posterior ischial sores with bedridden status, very staged ecchymoses, abrasion. CARDIOVASCULAR: No chest pain, chest pressure or chest discomfort, palpitations, edema, orthopnea, syncopal events. RESPIRATORY: No shortness of breath, cough or sputum, wheezing, hemoptysis. GASTROINTESTINAL: No anorexia, nausea, vomiting or diarrhea, abdominal pain, melena, BRBPR. GENITOURINARY: No dysuria, frequency, urgency or retention. NEUROLOGICAL: No headache, dizziness, syncope, paralysis, ataxia, numbness or tingling in the extremities, focal weakness, change in bowel or bladder control, seizure. MUSCULOSKELETAL: + muscle, back pain, joint pain or stiffness. HEMATOLOGIC: No anemia, bleeding or bruising. LYMPHATICS: No enlarged nodes. No history of splenectomy. PSYCHIATRIC: No history of depression or anxiety. ENDOCRINOLOGIC: No reports of sweating, cold or heat intolerance. No polyuria or polydipsia. ALLERGIES: + History of allergic rhinitis. Vital Signs Vital Signs Vital Signs: 07/29/24 19:07 07/29/24 19:15 07/29/24 19:17 Temperature 98.8 F 98.8 F Temperature Source Oral Oral Pulse Rate 118 H 117 H Respiratory Rate 28 H 28 H Respiratory Effort Labored Respiratory Pattern Tachypnea Blood Pressure 116/55 L 116/55 L Blood Pressure Mean 75 75 Pulse Ox 91 92 Oxygen Delivery Method Room Air Room Air 07/29/24 20:15 07/29/24 20:58 07/29/24 21:00 Temperature 98.8 F 98.9 F Temperature Source Oral Oral Pulse Rate 109 H 107 H Respiratory Rate 24 H 25 H Respiratory Effort Respiratory Pattern Blood Pressure 137/82 H 130/80 H Blood Pressure Mean 100 96 Pulse Ox 96 96 96 Oxygen Delivery Method Room Air Room Air Room Air Weight Weight: 221 lb 1.978 oz Body Mass Index (BMI) 35.6 Physical Exam Narrative Physical Examination: General: Awake, alert, oriented x 3 and cooperative, seated upright in ED bed, fatigued appearing, no acute distress. Skin: Normal color, normal turgor, no icterus, no cyanosis except occasional stage ecchymoses, mild venous stasis disease. HEENT: AT/NC, EOMI, PERRLA, mildly dry MM, no carotid bruits, difficult to discern JVD given thick neck Lungs: Mildly diminished, greater bases, mild increased respiratory rate but no distress, no markedly appreciated rales, ronchi or wheezing. Heart: Mildly tachycardic with regular rhythm; no gallop, rub audible. Abdomen: Soft, obese, NTTP, distant BS, difficult to discern distention HSM given habitus. Extremities: No cyanosis, no clubbing, no marked distal edema noted, chronic right lower extremity leg bracing in place, does have some sensation of bilateral lower extremities of note. Neurological: Patient awake, alert, oriented as noted, cognitive function baseline intact; pupils equally reactive to light and accommodation, cranial nerves gross normal, able to move upper extremities, lower extremities does have spasticity with movement intermittently but is unable to use his legs even for pivoting, does still have some sensation to the lower extremities, strength severely globally decreased secondary to acute presentation complicated by underlying comorbidities. Psychiatric: Affect appears mildly flat, fatigued, no acute evidence of depressive or anxiety feelings. Results Lab / Micro Data 07/29/24 19:50 07/29/24 19:50 Labs: Laboratory Results - last 24 hr 07/29/24 19:19: Urine Color Yellow, Urine Clarity Turbid, Urine pH 6.0, Ur Specific [place] 1.015, Urine Protein 100 H, Urine Glucose (UA) 250 H, Urine Ketones 5 H, Urine Occult Blood 250 H, Urine Nitrite Positive H, Urine Bilirubin Negative, Urine Urobilinogen Normal, Ur Leukocyte Esterase 500 H, Urine RBC 10-25 SEEN, Urine WBC >100 SEEN, Ur Squamous Epith Cells 0-5 SEEN, Urine Bacteria 3+, Urine Mucus 0 SEEN 07/29/24 19:50: WBC 19.9 H, RBC 4.47 L, Hgb 13.0, Hct 39.6 L, MCV 88.6, MCH 29.1, MCHC 32.8, RDW Std Deviation 55.2 H, RDW Coeff of Josue 17.1 H, Plt Count 309, MPV 9.8, Immature Gran % (Auto) 0.900, Neut % (Auto) 86.7 H, Lymph % (Auto) 5.5 L, [place] % (Auto) 6.2, Eos % (Auto) 0.4, Baso % (Auto) 0.3, Absolute Neuts (auto) 17.3 H, Absolute Lymphs (auto) 1.10, Nucleated RBC % 0, PT 13.7, INR 1.0, APTT 30.0, Sodium 140, Potassium 3.8, Chloride 104, Carbon Dioxide 22.9, Anion Gap 13, BUN 12, Creatinine 0.83, Estim Creat Clear Calc 95.77, Est GFR (MDRD) Non-Af 96, BUN/Creatinine Ratio 14.8, Glucose 183 H, Lactic Acid 3.0 H*, Calcium 9.2, Total Bilirubin 0.24, AST 15, ALT 20, Alkaline Phosphatase 119, Total Protein 7.8, Albumin 3.4, Globulin 4.3 H, Albumin/Globulin Ratio 0.8 L Imaging Radiology Impression Chest X-Ray 07/29/24 20:00 IMPRESSION: Findings suggestive of vascular congestion or viral infection. Reading Location: [facility] Assessment & Plan Assessment/Plan (1) Complicated UTI (urinary tract infection): PLAN: Plan The patient is a 68 y/o M w/ PMHx: Paraplegic spinal paralysis status post previous neck and spinal surgery using a wheelchair chronically complicated by ischial pressure sores with colostomy as well as suprapubic catheter in place, HTN, HLD, GERD, Hypothyroidism, COPD, Former tobacco use who presents to the [facility] ED on 07/29/2024 with history of onset fever for the last 2 days with increased recent output from his colostomy bag otherwise no acute complaints with no ill contacts prompting ED evaluation to be cautious. #1. Acute Sepsis secondary to Acute Complicated Urinary Tract Infection secondary to chronic indwelling Benson cath (tachypnea, tachycardia, leukocytosis, significant lactic acidosis with source): Will admit to PCU to be cautious, UA upon ED evaluation remarkable, pending UCx, ideally will need suprapubic catheter changed with consultation requested for Urology evaluation, monitor I/Os, continue IV zosyn and vancomycin based on previous cultures to be cautious with de-escalation as able w/ transition as able pending sensitivities and speciation. Lower suspicion for volume overload despite chest x-ray findings noted to be 96% on room air however to be cautious and low threshold to slow down or decrease the ED initiated 30 cc/kg IV fluid bolus. Bld cx x 2 obtained in the ED. PT/OT/case management consulted for discharge planning. #2. Hyperglycemia without diabetic history: Admission glucose 183, likely stress response given #1, will obtain hemoglobin A1c to be cautious. #3. Paraplegic spinal paralysis status post previous neck and spinal surgery using a wheelchair chronically complicated by ischial pressure sores with colostomy as well as suprapubic catheter with chronic neurogenic bladder with chronic urinary retention: Complicates presentation, maintain on fall precautions, offload, barrier creams, colostomy care, continue Benson care, will continue patient on Flomax regimen, maintain on home baclofen regimen for spasms. PT/OT/case management consulted for discharge planning. #4. Hypertension: Noted history, per current list not on medications but clarifying, BP upon arrival normal range, add medication if ongoing with hold parameters if necessary otherwise continue to monitor. #5. Hyperlipidemia: Not on regimen per current list, clarifying to be certain. #6. Chronic COPD: Not on any chronic regimen, will maintain on ATC ipratropium therapy, PRN albuterol, HOB, IS parameters. #7. Former tobacco use: Encourage continued tobacco cessation. #8. Hypothyroidism: Will continue patient on levothyroxine regimen. #9. GERD: Will continue patient on PPI. #10. DVT prophylaxis: Lovenox. #11. CODE status: Patient does not have healthcare power of state's attorney or living will in place but notes his who is present would be his medical decision-maker if necessary. Discussed CODE status at length including difference between FULL code, DNR-CCA and DNR-CC status. Following discussions about the differences in these status, requested Full Code status. Advanced Care Planning Face to Face Time: 16 minutes. Sepsis Attestation Sepsis Attestation: Agree w/Sepsis Date exam was performed: 07/29/24 Time exam was performed: 21:28 Possible Source of Sepsis: Genitourinary Sepsis Organ Dysfunction Criteria Present: Lactic Acid > 2 mmol/L and None (tachypnea, tachycardia, leukocytosis, significant lactic acidosis with source) Fluid Resuscitation Fluid resuscitation indicated?: Yes Fluid Resuscitation ordered: 30 ml/kg fluid bolus ordered Amount of fluid ordered: 2,500 Reason for lesser fluid bolus:: Other (Intend to monitor for decreasing if needed to avoid overload, BP in the ED upon arrival appropriate range.) Sepsis Note Date exam was performed: 07/29/24 Time exam was performed: 21:29 Charges/Coding Visit Charges Inpatient E&M: 21597 Init Hosp L3 Procedures Hospitalists Procedures: 16385 Advncd Care Plan 30 Min
[2024-07-29] MEDS: Vancomycin HCl 2,000 MG in 0.9% Normal Saline (500mL Bag) 500 ML 250 MG IV (21:40)
[2024-07-29 23:57] LABS: Reflex Lactate? Y
[2024-07-30] VITALS (11 sets, daily range): BP systolic 104–125; BP diastolic 61–80; PULSE 76–99; RESP 16–20; TEMP 36.6–36.9; O2SAT 90–96; BMI 34.9
--- NOTE | 2024-07-30 00:10 | PCM.RX.CS ---
Consult Antibiotic Management Pharmacy has been consulted to manage selected antibiotic: Vancomycin Type of Intervention Type of Consult: New start Suspected Infection Suspected Infection: Sepsis Labs Labs: Sodium 140 mmol/L (133-145) 07/29/24 19:50 Potassium 3.8 mmol/L (3.3-5.1) 07/29/24 19:50 Chloride 104 mmol/L (98-108) 07/29/24 19:50 Carbon Dioxide 22.9 mmol/L (21.0-32.0) 07/29/24 19:50 Anion Gap 13 (5-15) 07/29/24 19:50 BUN 12 mg/dL (4-19) 07/29/24 19:50 Creatinine 0.83 mg/dL (0.70-1.20) 07/29/24 19:50 Est GFR (MDRD) Non-Af 96 (>60) 07/29/24 19:50 BUN/Creatinine Ratio 14.8 RATIO (10-20) 07/29/24 19:50 Glucose 183 mg/dL (70-99) H 07/29/24 19:50 Microbiology Microbiology: Microbiology 07/29/24 20:37 Mucosa - Nose SARS-CoV-2, Influenza & RSV (PCR) - Final Goal Trough Goal Trough: 15-20 mcg/mL Pharmacy Plan for Drug Dosing Pharmacy Plan for Drug Dosing: NEW START IV VANCOMYCIN Consulting Physician: Dr. Zurita Indication: Sepsis Goal Trough: 15-20 SrCr: 0.83 CrCl: 96 mL/min Comments: Patient had initial dose of 2000mg IV X1 in ED 07/29/24 @2140 Vancomycin Dose: 2000mg IV Q12hr to start 07/30/24 @1000 Pending Level: 07/31/24 @0930, prior to 4th total dose of vancomycin per protocol Pharmacy Service will continue to monitor and adjust dosing as required.
[2024-07-30] MEDS: Menthol/Lanolin/Calamine/Znox 113 GM Tube 1 APPLIC TOPICAL ×5 (00:31→22:39)
[2024-07-30] MEDS: 0.9% Normal Saline (1000mL) 1,000 ML 999 ML IV ×2 (00:31→02:09)
[2024-07-30] MEDS: Baclofen 10 MG Tablet 15 MG PO (00:32)
[2024-07-30] MEDS: Tamsulosin HCl 0.4 MG Capsule PO ×3 (00:32→22:42)
[2024-07-30] MEDS: icosapent ethyL 1 GM Capsule 2 GM PO ×3 (00:33→22:41)
[2024-07-30 01:03] LABS: Lactic Acid 1.7 mmol/L (0.0-2.0)
[2024-07-30 04:52] LABS: Absolute Lymphocyte Count 2.06 X10^3/uL (0.83-4.51); Absolute Neutrophil Count 16.3 X10^3/uL (2.0-7.7); Basophil# 0.07 X10^3/uL; Basophil% 0.3 % (0-1); Differential Indicated SCAN CRITERIA MET; Eosinophil# 0.13 X10^3/uL; Eosinophils% 0.6 % (0-5); Hematocrit 34.3 % (40-54); Hemoglobin 11.1 g/dL (13.0-16.5); Lymphocyte # 2.06 X10^3/ul (0.83-4.51); Mean Corp Hgb Conc 32.4 g/dL (32-36); Mean Corpuscular Hgb 28.6 pg (27.0-32.0); Mean Corpuscular Volume 88.4 fL (80-94); Mean Platelet Vol. 9.7 fl (6.2-12.0); Monocyte# 1.77 X10^3/uL; Monocyte% 8.6 % (0-10); NRBC Flagged by Analyzer 0 % (0-5); Neutrophil # 16.29 X10^3/uL (2.7-7.7); Neutrophil % 79.6 % (47-70); POSITIVE DIFFERENTIAL YES; Platelet Count 266 K/mm3 (150-450); RBC Distribution Width CV 17.1 % (11.6-14.6); RBC Distribution Width SD 55.3 fl (35.1-43.9); Red Blood Count 3.88 M/mm3 (4.6-6.2); White Blood Count 20.5 K/mm3 (4.4-11.0)
[2024-07-30 05:16] LABS: AST(SGOT) 14 U/L (<=37); Alanine Aminotransfer ALT/SGPT 16 U/L (<=46); Alkaline Phosphatase 95 U/L (40-129); Anion Gap 10 (5-15); BUN 9 mg/dL (4-19); Calcium,Total 8.3 mg/dL (7.6-11.0); Carbon Dioxide 20.2 mmol/L (21.0-32.0); Chloride 112 mmol/L (98-108); Creatinine, Serum 0.53 mg/dL (0.70-1.20); EST Glomerular Filtration Rate 110 (>60); Estimated Creatinine Clearance 98.55 ml/min (50-250); Globulin 2.9 g/dL (2.2-4.2); Glucose 144 mg/dL (70-99); Potassium 3.7 mmol/L (3.3-5.1); Protein, Total 5.8 g/dL (5.9-8.4); Sodium Level 141 mmol/L (133-145); Total Bilirubin 0.28 mg/dL (0.00-1.30)
[2024-07-30 05:19] LABS: Differential Comment SCANNED
[2024-07-30] MEDS: Piperacil/Tazobactam 3.375 GM/50 ML ML IV ×3 (06:36→22:45)
[2024-07-30] MEDS: Levothyroxine 125 MCG Tablet PO (06:37)
[2024-07-30] MEDS: Baclofen 10 MG Tablet 20 MG PO ×3 (06:38→22:46)
[2024-07-30] MEDS: Ipratropium 0.5 MG/2.5 ML SOLUTION INHALATION ×3 (07:06→20:37)
[2024-07-30 07:08] LABS: Hemoglobin A1c 7.1 % (<=5.6)
--- NOTE | 2024-07-30 08:28 | PN.HOSP_ITS ---
Reason for Visit Reason for Visit: Diagnoses Urinary tract infection, site not specified (07/29/24) Subjective Subjective Patient is a 68-year-old gentleman with history of paraplegia following neck surgery with a suprapubic catheter who presented with fever and chills. Patient was found to have abnormal urinalysis consistent with acute complicated UTI treatment initiated per protocol patient admitted to regular nursing floor for further management Objective Data Objective Data Vital Signs: Vital Signs Temp Pulse Resp BP Pulse Ox O2 Del Method 98.2 F 85 18 104/80 94 Room Air 07/30/24 04:23 07/30/24 04:23 07/30/24 04:23 07/30/24 04:23 07/30/24 04:23 07/30/24 04:23 Oxygen Delivery Method Room Air Weight: 98.7 kg Body Mass Index (BMI) 34.9 Intake & Output: Intake and Output for Last 24 Hours 07/28/24 07/29/24 07/30/24 23:59 23:59 23:59 Intake Total 1100 / 1500 3172.5 / 3172.5 Output Total 1100 / 1100 Balance 1100 / 1000 2072.5 / 2072.5 Lab / Micro Data 07/30/24 04:18 07/30/24 04:18 Labs: Laboratory Results - last 24 hr 07/29/24 19:19: Urine Color Yellow, Urine Clarity Turbid, Urine pH 6.0, Ur Specific [place] 1.015, Urine Protein 100 H, Urine Glucose (UA) 250 H, Urine Ketones 5 H, Urine Occult Blood 250 H, Urine Nitrite Positive H, Urine Bilirubin Negative, Urine Urobilinogen Normal, Ur Leukocyte Esterase 500 H, Urine RBC 10- 25 SEEN, Urine WBC >100 SEEN, Ur Squamous Epith Cells 0-5 SEEN, Urine Bacteria 3+, Urine Mucus 0 SEEN 07/29/24 19:50: WBC 19.9 H, RBC 4.47 L, Hgb 13.0, Hct 39.6 L, MCV 88.6, MCH 29.1, MCHC 32.8, RDW Std Deviation 55.2 H, RDW Coeff of Josue 17.1 H, Plt Count 309, MPV 9.8, Immature Gran % (Auto) 0.900, Neut % (Auto) 86.7 H, Lymph % (Auto) 5.5 L, [place] % (Auto) 6.2, Eos % (Auto) 0.4, Baso % (Auto) 0.3, Absolute Neuts (auto) 17.3 H, Absolute Lymphs (auto) 1.10, Nucleated RBC % 0, PT 13.7, INR 1.0, APTT 30.0, Sodium 140, Potassium 3.8, Chloride 104, Carbon Dioxide 22.9, Anion Gap 13, BUN 12, Creatinine 0.83, Estim Creat Clear Calc 95.77, Est GFR (MDRD) Non-Af 96, BUN/Creatinine Ratio 14.8, Glucose 183 H, Lactic Acid 3.0 H*, Calcium 9.2, Total Bilirubin 0.24, AST 15, ALT 20, Alkaline Phosphatase 119, Total Protein 7.8, Albumin 3.4, Globulin 4.3 H, Albumin/Globulin Ratio 0.8 L 07/30/24 00:06: Lactic Acid 1.7 07/30/24 04:18: WBC 20.5 H, RBC 3.88 L, Hgb 11.1 L, Hct 34.3 L, MCV 88.4, MCH 28.6, MCHC 32.4, RDW Std Deviation 55.3 H, RDW Coeff of Josue 17.1 H, Plt Count 266, MPV 9.7, Immature Gran % (Auto) 0.900, Neut % (Auto) 79.6 H, Lymph % (Auto) 10.0 L, [place] % (Auto) 8.6, Eos % (Auto) 0.6, Baso % (Auto) 0.3, Absolute Neuts (auto) 16.3 H, Absolute Lymphs (auto) 2.06, Nucleated RBC % 0, Differential Comment SCANNED, Sodium 141, Potassium 3.7, Chloride 112 H, Carbon Dioxide 20.2 L, Anion Gap 10, BUN 9, Creatinine 0.53 L, Estim Creat Clear Calc 98.55, Est GFR (MDRD) Non-Af 110, BUN/Creatinine Ratio 16.0, Glucose 144 H, Hemoglobin A1c 7.1 H, Calcium 8.3, Total Bilirubin 0.28, AST 14, ALT 16, Alkaline Phosphatase 95, T otal Protein 5.8 L, Albumin 3.0 L, Globulin 2.9, Albumin/Globulin Ratio 1.0 Micro: Microbiology 07/29/24 20:37 Mucosa - Nose SARS-CoV-2, Influenza & RSV (PCR) - Final Radiography Diagnostic Testing: Radiology Impression Chest X-Ray 07/29/24 20:00 IMPRESSION: Findings suggestive of vascular congestion or viral infection. Reading [facility] Physical Exam Narrative GENERAL: cooperative HEENT: Atraumatic; normocephalic EYES; Anicteric, Normal Conjunctiva NECK; supple, normal thyroid, RESPIRATORY: Diminished to auscultation CARDIOVASCULAR: Regular S1 S2, GI: soft, normoactive bowel sounds, colostomy left lower quadrant : No Renal angle tenderness; suprapubic catheter present EXTREMITIES: No edema, no clubbing, MUSCULOSKELETAL: Stage IV right ischial pressure sore NEURO: Awake; paraplegic SKIN: No Rash PSYCH; Flat affect Assessment & Plan Assessment/Plan (1) Complicated UTI (urinary tract infection): PLAN: Plan Patient is a 68-year-old gentleman with history of paraplegia following neck surgery with a suprapubic catheter who presented with fever and chills. Patient was found to have abnormal urinalysis consistent with acute complicated UTI treatment initiated per protocol patient admitted to regular nursing floor for further management 1. Sepsis 1. Sepsis secondary to acute complicated urinary tract infection due to presence of a chronic suprapubic catheter ? Patient treatment initiated per protocol with IV fluid resuscitation, broad- spectrum antibiotic therapy after cultures were obtained. Response to therapy being monitored with serial lactic acid level 2. Paraplegia ? Following previous neck surgery complicating care. Patient has a neurogenic bladder with chronic urinary retention status post suprapubic catheter placement. Consult was placed to urology patient is on tamsulosin did continue 3. Hypothyroidism ? Patient is on levothyroxine home dose continued 4. Dyslipidemia ? Patient is on Vascepa plan is to resume following discharge 5. Class II obesity with BMI of 35 ? Complicating care 6. Right ischial pressure sore stage IV ? Present on admission consult was placed to wound care nurse 7. Status post diverting colostomy performed on 11/21/2022 8. Anemia ? Secondary to chronic disorder monitoring H&H and transfuse if patient becomes symptomatic or hemoglobin falls below 7 9. Hyperglycemia ? Secondary to new onset diabetes mellitus type 2. Patient hemoglobin A1c was 7. Subsequently started on Accu-Cheks ACHS with sliding scale coverage 10 . DVT prophylaxis SC Lovenox Charges/Coding Visit Charges Inpatient E&M: 68020 Subs Hosp L3
--- NOTE | 2024-07-30 08:50 | CASEMGMT ---
RN SAVANAH Face to Face with patient for initial transition planning/care coordination assessment. RN CM introduced self and role at [facility]. Patient lying in bed, alert and oriented. Patient willing to participate in assessment and is able to answer all questions appropriately. Care providers, pharmacy, and demographics verified. Strata: 2 PCP: Erasmo Specialists: Ric, urologist Preferred Pharmacy: [facility] Insurance: [employer] [facility] Prescription Benefit: yes Living Will/HPOA: yes, Abraham LNOK: , son Living Arrangements: Patient lives with in a single story home with ramp to enter the home. Patient's assists patient with ADLs Transportation: DME/HHC: Patient has shower chair, power wheelchair, and slideboard at home. Patient has been to [facility] in the past. Patient is active with [facility] for SN. Patient wishes to discharge home with resumption of [facility] HHC, green sheet placed on chart. Patient states he has no further needs or concerns at this time. CM to follow for discharge planning needs that may arise. Disposition Plan: Patient to discharge home with resumption of [facility] HHC, family support, and follow-up plans in place. Mindy NEAL, RN, CM
[2024-07-30] MEDS: Enoxaparin 40 MG/0.4 ML Syringe SC (09:19)
[2024-07-30] MEDS: Pantoprazole Sodium 40 MG Tablet PO (09:20)
[2024-07-30] MEDS: Vancomycin HCl 2,000 MG in 0.9% Normal Saline (500mL Bag) 500 ML 250 MG IV ×2 (11:00→22:46)
[2024-07-30 11:19] LABS: Bedside Glucose 151 mg/dL (74-106)
[2024-07-30 17:30] LABS: Bedside Glucose 134 mg/dL (74-106)
[2024-07-30] MEDS: Acetaminophen 325 MG Tablet 650 MG PO (19:03)
[2024-07-31] VITALS (7 sets, daily range): BP systolic 95–131; BP diastolic 63–73; PULSE 76–89; RESP 18–20; TEMP 36.4–37.4; O2SAT 92–95; BMI 34.9
[2024-07-31 01:34] LABS: Bedside Glucose 162 mg/dL (74-106)
[2024-07-31 05:54] LABS: Absolute Lymphocyte Count 0.96 X10^3/uL (0.83-4.51); Basophil# 0.03 X10^3/uL; Basophil% 0.3 % (0-1); Eosinophils% 1.8 % (0-5); Hematocrit 34.1 % (40-54); Lymphocyte # 0.96 X10^3/ul (0.83-4.51); Lymphocyte % 8.7 % (19-41); Mean Corp Hgb Conc 32.3 g/dL (32-36); Mean Corpuscular Hgb 28.6 pg (27.0-32.0); Mean Corpuscular Volume 88.6 fL (80-94); Mean Platelet Vol. 9.6 fl (6.2-12.0); Monocyte# 0.81 X10^3/uL; Monocyte% 7.3 % (0-10); NRBC Flagged by Analyzer 0 % (0-5); Neutrophil # 9.01 X10^3/uL (2.7-7.7); Neutrophil % 81.3 % (47-70); Platelet Count 239 K/mm3 (150-450); RBC Distribution Width CV 17.2 % (11.6-14.6); RBC Distribution Width SD 55.7 fl (35.1-43.9); Red Blood Count 3.85 M/mm3 (4.6-6.2); White Blood Count 11.1 K/mm3 (4.4-11.0)
[2024-07-31 06:17] LABS: Magnesium 1.8 mg/dL (1.5-2.2); Phosphorus 2.8 mg/dL (2.7-4.5)
[2024-07-31 06:19] LABS: Anion Gap 10 (5-15); BUN 13 mg/dL (4-19); BUN/Creat Ratio 14.8 RATIO (10-20); Calcium,Total 8.8 mg/dL (7.6-11.0); Carbon Dioxide 19.9 mmol/L (21.0-32.0); Chloride 111 mmol/L (98-108); Creatinine, Serum 0.89 mg/dL (0.70-1.20); EST Glomerular Filtration Rate 94 (>60); Estimated Creatinine Clearance 88.54 ml/min (50-250); Glucose 149 mg/dL (70-99); Potassium 3.6 mmol/L (3.3-5.1); Sodium Level 140 mmol/L (133-145)
[2024-07-31] MEDS: Levothyroxine 125 MCG Tablet PO (06:33)
[2024-07-31] MEDS: Baclofen 10 MG Tablet 20 MG PO ×3 (06:34→22:00)
[2024-07-31] MEDS: Piperacil/Tazobactam 3.375 GM/50 ML ML IV ×2 (06:34→13:37)
[2024-07-31] MEDS: Ipratropium 0.5 MG/2.5 ML SOLUTION INHALATION ×2 (07:10→13:29)
[2024-07-31 07:17] LABS: Bedside Glucose 139 mg/dL (74-106)
--- NOTE | 2024-07-31 08:03 | PCM.PN.HOSP ---
Reason for Visit Reason for Visit: Diagnoses Urinary tract infection, site not specified (07/29/24) Subjective Subjective Patient urine cultures so far positive for GNR lactose behavioral medical director final identification and sensitivities. Objective Data Objective Data Vital Signs: Vital Signs Temp Pulse Resp BP Pulse Ox O2 Del Method 98.7 F 87 20 H 131/73 H 93 Room Air 07/31/24 06:43 07/31/24 06:43 07/31/24 06:43 07/31/24 06:43 07/31/24 06:43 07/31/24 06:43 Oxygen Delivery Method Room Air Weight: 98.6 kg Body Mass Index (BMI) 34.9 Intake & Output: Intake and Output for Last 24 Hours 07/29/24 07/30/24 07/31/24 23:59 23:59 23:59 Intake Total 1100 / 1500 4762.5 / 4762.5 590 / 590 Output Total 1600 / 2300 2125 / 2125 Balance 1100 / 1000 3162.5 / 2462.5 -1535 / -1535 Lab / Micro Data 07/31/24 05:30 07/31/24 05:30 Labs: Laboratory Results - last 24 hr 07/30/24 10:58: POC Glucose 151 H 07/30/24 17:12: POC Glucose 134 H 07/30/24 22:36: POC Glucose 162 H 07/31/24 05:30: WBC 11.1 H, RBC 3.85 L, Hgb 11.0 L, Hct 34.1 L, MCV 88.6, MCH 28.6, MCHC 32.3, RDW Std Deviation 55.7 H, RDW Coeff of Josue 17.2 H, Plt Count 239, MPV 9.6, Immature Gran % (Auto) 0.600, Neut % (Auto) 81.3 H, Lymph % (Auto) 8.7 L, [place] % (Auto) 7.3, Eos % (Auto) 1.8, Baso % (Auto) 0.3, Absolute Neuts (auto) 9.0 H, Absolute Lymphs (auto) 0.96, Nucleated RBC % 0, Sodium 140, Potassium 3.6, Chloride 111 H, Carbon Dioxide 19.9 L, Anion Gap 10, BUN 13, Creatinine 0.89, Estim Creat Clear Calc 88.54, Est GFR (MDRD) Non-Af 94, BUN/Creatinine Ratio 14.8, Glucose 149 H, Calcium 8.8, Phosphorus 2.8, Magnesium 1.8 07/31/24 06:31: POC Glucose 139 H Micro: Microbiology 07/29/24 19:19 Urine Catheter - Benson Urine Culture - Preliminary GNR lactose behavioral medical director 07/29/24 20:37 Mucosa - Nose SARS-CoV-2, Influenza & RSV (PCR) - Final Physical Exam Narrative GENERAL: cooperative HEENT: Atraumatic; normocephalic EYES; Anicteric, Normal Conjunctiva NECK; supple, normal thyroid, RESPIRATORY: Diminished to auscultation CARDIOVASCULAR: Regular S1 S2, GI: soft, normoactive bowel sounds, colostomy left lower quadrant : No Renal angle tenderness; suprapubic catheter present EXTREMITIES: No edema, no clubbing, MUSCULOSKELETAL: Stage IV right ischial pressure sore NEURO: Awake; paraplegic SKIN: No Rash PSYCH; Flat affect Assessment & Plan Assessment/Plan (1) Complicated UTI (urinary tract infection): PLAN: Plan Patient is a 68-year-old gentleman with history of paraplegia following neck surgery with a suprapubic catheter who presented with fever and chills. Patient was found to have abnormal urinalysis consistent with acute complicated UTI treatment initiated per protocol patient admitted to regular nursing floor for further management 1. Sepsis 1. Sepsis secondary to acute complicated urinary tract infection due to presence of a chronic suprapubic catheter ? Patient treatment initiated per protocol with IV fluid resuscitation, broad-spectrum antibiotic therapy after cultures were obtained. Response to therapy being monitored with serial lactic acid level ? 07/31/2024;Patient urine cultures so far positive for GNR lactose behavioral medical director final identification and sensitivities. Plan is to continue with current antibiotic therapy 2. Paraplegia ? Following previous neck surgery complicating care. Patient has a neurogenic bladder with chronic urinary retention status post suprapubic catheter placement. Consult was placed to urology patient is on tamsulosin did continue 3. Hypothyroidism ? Patient is on levothyroxine home dose continued 4. Dyslipidemia ? Patient is on Vascepa plan is to resume following discharge 5. Class II obesity with BMI of 35 ? Complicating care 6. Right ischial pressure sore stage IV ? Present on admission consult was placed to wound care nurse 7. Status post diverting colostomy performed on 11/21/2022 8. Anemia ? Secondary to chronic disorder monitoring H&H and transfuse if patient becomes symptomatic or hemoglobin falls below 7 9. Hyperglycemia ? Secondary to new onset diabetes mellitus type 2. Patient hemoglobin A1c was 7. Subsequently started on Accu-Cheks ACHS with sliding scale coverage 10 . DVT prophylaxis SC Lovenox Charges/Coding Visit Charges Inpatient E&M: 13501 Subs Hosp L2
--- NOTE | 2024-07-31 09:30 | NURSING ---
Pt with suprapubic catheter instead of Benson catheter. This nurse documented Benson d/c to stop incorrect documentation. Pt with suprapubic and not Benson catheter. Dr Larios to see pt tomorrow.
[2024-07-31] MEDS: Vancomycin Trough/Random Due 1 LAB MC (09:34)
[2024-07-31] MEDS: Menthol/Lanolin/Calamine/Znox 113 GM Tube 1 APPLIC TOPICAL ×4 (09:34→21:58)
[2024-07-31] MEDS: icosapent ethyL 1 GM Capsule 2 GM PO ×2 (09:36→21:59)
[2024-07-31] MEDS: Pantoprazole Sodium 40 MG Tablet PO (09:36)
[2024-07-31] MEDS: Tamsulosin HCl 0.4 MG Capsule PO ×2 (09:36→21:58)
[2024-07-31] MEDS: Enoxaparin 40 MG/0.4 ML Syringe SC (09:36)
[2024-07-31 10:11] LABS: Vancomycin, Trough Level 19.4 ug/mL (5.0-15.0)
--- NOTE | 2024-07-31 10:33 | PHA.PHARE_ITS ---
Consult Antibiotic Management Pharmacy has been consulted to manage selected antibiotic: Vancomycin Type of Intervention Type of Consult: Follow-up Suspected Infection Suspected Infection: Sepsis Labs Labs: Sodium 140 mmol/L (133-145) 07/31/24 05:30 Potassium 3.6 mmol/L (3.3-5.1) 07/31/24 05:30 Chloride 111 mmol/L (98-108) H 07/31/24 05:30 Carbon Dioxide 19.9 mmol/L (21.0-32.0) L 07/31/24 05:30 Anion Gap 10 (5-15) 07/31/24 05:30 BUN 13 mg/dL (4-19) 07/31/24 05:30 Creatinine 0.89 mg/dL (0.70-1.20) 07/31/24 05:30 Est GFR (MDRD) Non-Af 94 (>60) 07/31/24 05:30 BUN/Creatinine Ratio 14.8 RATIO (10-20) 07/31/24 05:30 Glucose 149 mg/dL (70-99) H 07/31/24 05:30 Vancomycin Trough 19.4 ug/mL (5.0-15.0) H 07/31/24 09:25 Microbiology Microbiology: Microbiology 07/29/24 19:19 Urine Catheter - Benson Urine Culture - Preliminary GNR lactose global account executive 07/29/24 20:37 Mucosa - Nose SARS-CoV-2, Influenza & RSV (PCR) - Final Goal Trough Goal Trough: 15-20 mcg/mL Pharmacy Plan for Drug Dosing Pharmacy Plan for Drug Dosing: VANCOMYCIN LEVEL RECEIVED Current Vancomycin Dose: 2000mg q12h (10,22) Number of Doses Received: pt received a 2000mg ER dose, and x2 2000mg maintenance doses Vancomycin Level: 19.4 (drawn 07/31/24 at 0925) Hours Since Last Dose: 10 hours since last 2000mg dose on 07/30/24 at 2246 Renal Function: SrCr 0.89 Renal Function Trend: SrCr increased from 0.53 on 07/30/24 Lab/Micro: Vancomycin Plan/Comments: resulted trough is within the ordered goal trough range of 15-20, however it is on the high end and pt not yet at steady state. recommend decreasing dose to 1750mg q12h and checking a trough prior to the 3rd dose to ensure trough still within range Pending Level: 08/01/24 at 1030 Pharmacy Service will continue to monitor and adjust dosing as required. Follow-Up Labs Follow-Up Labs: Trough: Vancomycin (08/01/24 at 1030)
[2024-07-31] MEDS: Vancomycin HCl 1,750 MG in 0.9% Normal Saline (500mL Bag) 500 ML 250 MG IV ×2 (11:07→23:45)
[2024-07-31] MEDS: Insulin Lispro 100 UNIT/ML INSULN.PEN SC ×2 (11:14→17:04)
[2024-07-31 11:30] LABS: Bedside Glucose 185 mg/dL (74-106)
[2024-07-31 17:25] LABS: Bedside Glucose 166 mg/dL (74-106)
[2024-07-31] MEDS: 0.9% Normal Saline (250mL Bag) 250 ML 15 ML IV (18:01)
[2024-07-31] MEDS: Piperacil/Tazobactam 3.375 GM in 0.9% Normal Saline (50mL MB+) 50 ML IV (21:56)
[2024-07-31] MEDS: MELATONIN 3 MG TABLET PO (21:58)
[2024-07-31 22:53] LABS: Bedside Glucose 140 mg/dL (74-106)
--- NOTE | 2024-08-01 02:19 | PN.HOSP_ITS ---
Hospitalist Note Patient more confused per senior staff accountant. Will obtain ABG and NH. VS stable. Labs from am prior were not marked appearing.
--- NOTE | 2024-08-01 02:19 | PCM.HOSP.N ---
Hospitalist Note Patient more confused per staff auditor. Will obtain ABG and NH. VS stable. Labs from am prior were not marked appearing.
[2024-08-01 03:08] LABS: Absolute Lymphocyte Count 1.14 X10^3/uL (0.83-4.51); Absolute Neutrophil Count 6.1 X10^3/uL (2.0-7.7); Basophil# 0.03 X10^3/uL; Basophil% 0.3 % (0-1); Eosinophils% 2.3 % (0-5); Hematocrit 33.4 % (40-54); Hemoglobin 10.7 g/dL (13.0-16.5); Lymphocyte # 1.14 X10^3/ul (0.83-4.51); Lymphocyte % 13.2 % (19-41); Mean Corpuscular Hgb 28.7 pg (27.0-32.0); Mean Corpuscular Volume 89.5 fL (80-94); Mean Platelet Vol. 10.2 fl (6.2-12.0); Monocyte# 1.06 X10^3/uL; Monocyte% 12.3 % (0-10); NRBC Flagged by Analyzer 0 % (0-5); Neutrophil # 6.13 X10^3/uL (2.7-7.7); Platelet Count 222 K/mm3 (150-450); RBC Distribution Width CV 17.6 % (11.6-14.6); Red Blood Count 3.73 M/mm3 (4.6-6.2); White Blood Count 8.6 K/mm3 (4.4-11.0)
--- NOTE | 2024-08-01 03:25 | NURSING ---
This RN attempted to obtain a set of VS from pt but pt is resistive and refusing care. This RN explained to the pt the importance of checking his VS, but pt insisted that the staff has been checking it every 5 min, and that he would like to be left alone. This RN emptied urine from pt's suprapubic catheter bag, and made sure bed alarm is on. No further concerns voiced by the pt at this time.
[2024-08-01 03:26] VITALS: BMI 34.4
[2024-08-01 03:33] LABS: Ammonia 43.8 umol/L (16-60)
[2024-08-01 03:38] LABS: Anion Gap 10 (5-15); BUN 14 mg/dL (4-19); BUN/Creat Ratio 12.9 RATIO (10-20); Calcium,Total 8.7 mg/dL (7.6-11.0); Carbon Dioxide 20.3 mmol/L (21.0-32.0); Chloride 113 mmol/L (98-108); Creatinine, Serum 1.06 mg/dL (0.70-1.20); EST Glomerular Filtration Rate 77 (>60); Estimated Creatinine Clearance 73.88 ml/min (50-250); Glucose 165 mg/dL (70-99); Potassium 3.6 mmol/L (3.3-5.1); Sodium Level 142 mmol/L (133-145)
--- NOTE | 2024-08-01 03:59 | CPS ---
Patient refused ABG at this time. He states that he is fine and does not need this blood work done
[2024-08-01 04:00] VITALS: BP 124/64; PULSE 68; RESP 18; TEMP 36.6; O2SAT 96
[2024-08-01] MEDS: Piperacil/Tazobactam 3.375 GM in 0.9% Normal Saline (50mL MB+) 50 ML IV ×2 (05:04→14:02)
[2024-08-01] MEDS: Levothyroxine 125 MCG Tablet PO (06:07)
[2024-08-01] MEDS: Baclofen 10 MG Tablet 20 MG PO (06:07)
[2024-08-01] MEDS: Insulin Lispro 100 UNIT/ML INSULN.PEN SC (06:10)
[2024-08-01 06:32] LABS: Bedside Glucose 152 mg/dL (74-106)
[2024-08-01 08:26] VITALS: BP 130/69; PULSE 79; RESP 18; TEMP 36.9; O2SAT 93
[2024-08-01] MEDS: Enoxaparin 40 MG/0.4 ML Syringe SC (08:29)
[2024-08-01] MEDS: Menthol/Lanolin/Calamine/Znox 113 GM Tube 1 APPLIC TOPICAL ×2 (08:30→14:02)
[2024-08-01] MEDS: Pantoprazole Sodium 40 MG Tablet PO (08:30)
[2024-08-01] MEDS: icosapent ethyL 1 GM Capsule 2 GM PO (08:30)
[2024-08-01] MEDS: Tamsulosin HCl 0.4 MG Capsule PO (08:30)
--- NOTE | 2024-08-01 08:50 | PCM.PN.HOSP ---
Reason for Visit Reason for Visit: Diagnoses Urinary tract infection, site not specified (07/29/24) Subjective Subjective Feeling well. Denies complaints. Catheter changed by Dr. Larios today. Objective Data Objective Data Vital Signs: Vital Signs Temp Pulse Resp BP Pulse Ox O2 Del Method 36.9 C 79 18 130/69 H 93 Room Air 08/01/24 08:26 08/01/24 08:26 08/01/24 08:26 08/01/24 08:26 08/01/24 08:26 08/01/24 08:26 Oxygen Delivery Method Room Air Weight: 97.4 kg Body Mass Index (BMI) 34.4 Intake & Output: Intake and Output for Last 24 Hours 07/30/24 07/31/24 08/01/24 23:59 23:59 23:59 Intake Total 4762.5 / 4762.5 2415.83 / 2415.83 562.92 / 562.92 Output Total 1600 / 2300 3975 / 3975 750 / 750 Balance 3162.5 / 2462.5 -1559.17 / -1559.17 -187.08 / -187.08 Lab / Micro Data 08/01/24 02:46 08/01/24 02:46 Labs: Laboratory Results - last 24 hr 07/31/24 09:25: Vancomycin Trough 19.4 H 07/31/24 11:10: POC Glucose 185 H 07/31/24 17:00: POC Glucose 166 H 07/31/24 21:52: POC Glucose 140 H 08/01/24 02:46: WBC 8.6, RBC 3.73 L, Hgb 10.7 L, Hct 33.4 L, MCV 89.5, MCH 28.7, MCHC 32.0, RDW Std Deviation 57.0 H, RDW Coeff of Josue 17.6 H, Plt Count 222, MPV 10.2, Immature Gran % (Auto) 0.900, Neut % (Auto) 71.0 H, Lymph % (Auto) 13.2 L, [place] % (Auto) 12.3 H, Eos % (Auto) 2.3, Baso % (Auto) 0.3, Absolute Neuts (auto) 6.1, Absolute Lymphs (auto) 1.14, Nucleated RBC % 0, Sodium 142, Potassium 3.6, Chloride 113 H, Carbon Dioxide 20.3 L, Anion Gap 10, BUN 14, Creatinine 1.06, Estim Creat Clear Calc 73.88, Est GFR (MDRD) Non-Af 77, BUN/Creatinine Ratio 12.9, Glucose 165 H, Calcium 8.7, Ammonia 43.8 08/01/24 06:10: POC Glucose 152 H Micro: Microbiology 07/29/24 19:19 Urine Catheter - Benson Urine Culture - Preliminary Klebsiella oxytoca Citrobacter freundii Staphylococcus aureus 07/29/24 19:40 Blood Culture (Wb) - Arm Left Blood Culture - Preliminary No growth in 48 hours. 07/29/24 19:50 Blood Culture (Wb) - Arm Left Blood Culture - Preliminary No growth in 48 hours. 07/29/24 20:37 Mucosa - Nose SARS-CoV-2, Influenza & RSV (PCR) - Final Physical Exam Const alert, oriented x3 and no apparent distress HEENT head/scalp atraumatic and moist oral mucous membranes Resp normal respiratory effort, no retractions, no use of accessory muscles and clear to auscultation bilaterally Cardio regular rate, regular rhythm, S1 normal heart sound and S2 normal heart sound GI normal to inspection, nondistended, normoactive bowel sounds, soft to palpation, non-tender and non-distended Assessment & Plan Assessment/Plan (1) Catheter-associated urinary tract infection: PLAN: polymicrobial: Klebsiella, Citrobacter (doubt S. aureus true pathogen especially since blood cultures are negative). continue pip/tazo through 08/01, DC with levofloxacin and treat through 08/07/2024. (2) Encephalopathy: PLAN: resolved. may have been polypharmacy. NH3 WNL DC baclofen PLAN: Plan Chronic conditions: paraplegia. wheelchair bound hypothyroidism: levothyroxine BPH: tamsulosin VTE prophylaxis: LMWH. DC home with [facility].
--- NOTE | 2024-08-01 09:44 | WOUNDNOTE ---
Colostomy appliance removed to assess stoma. there was a moderate amount of soft brown stool in the appliance. stoma is pink and well budded. measures approx 1 1/4. peristomal skin is intact. cleansed skin with warm water. pat dry. applied a new 2 piece flat [place] appliance with a small amount of stoma paste. pt tolerated well.
[2024-08-01] MEDS: DAKIN'S SOL HALF STRENGTH (=0.25%) TOPICAL (09:57)
--- NOTE | 2024-08-01 10:09 | WOUNDNOTE ---
wound photo: right ischium
--- NOTE | 2024-08-01 11:20 | PCM.CONS.U ---
Assessment & Plan Assessment/Plan (1) Encephalopathy: (2) Catheter-associated urinary tract infection: (3) Chronic suprapubic catheter: PLAN: No suprapubic catheter placed groin, new suprapubic pubic catheter placed, ordered ultrasound of his kidneys to rule out any upper tract source of the sepsis will follow. HPI Consult Data Date of Consult: 08/01/24 HPI Narrative Reason for Consultation: Sepsis urinary tract infection chronic suprapubic catheter HPI Narrative: JORGE LINDSEY, is a 68 M who presents to the hospital with infection confusion he is got a chronic suprapubic catheter patient is unable to give any history is not really responsive, at the bedside I change the suprapubic catheter to a new 18 [place] Benson catheter to gravity drainage. Unclear the source of the sepsis but does have multiple bacteria growing in the urine. Probably would recommend we do an ultrasound of his kidneys to rule out any source from his kidneys for sepsis PFSH Medical History Other acute postprocedural pain Paraplegic spinal paralysis History of pressure ulcer Wears glasses Thyroid disease Arthritis Uses wheelchair High cholesterol Gastric reflux COPD (chronic obstructive pulmonary disease) Hx of fracture of arm Hx of head injury Bedridden Smoker Right ischial pressure sore, stage 4 Home Medications ?Medication ?Instructions ?Recorded ?Last Taken ?Type baclofen 10 mg tablet 20 mg PO TID spasm 12/17/17 06/09/24 History levothyroxine 125 mcg tablet 125 mcg PO DAILY high cholestro 12/17/17 06/09/24 History tamsulosin 0.4 mg capsule 0.4 mg PO BID gu 12/17/17 06/09/24 History icosapent ethyl 1 gram capsule 2 g PO BID cholesterol 02/08/22 06/09/24 History (Vascepa) acetaminophen 650 mg 1,300 mg PO Q8H PRN Pain 04/25/22 Unknown History tablet,extended release Allergy/AdvReac Type Severity Reaction Status Date / Time Environmental Allergies: Allergy NEEDS Verified 07/29/24 19:17 Uncoded (dust) FOLLOW-UP house dust Allergy Other Verified 07/29/24 19:17 pollen extracts Allergy NEEDS Verified 07/29/24 19:17 FOLLOW-UP Family History Mother CVA (cerebral vascular accident) Hypertension Father Hypertension Prostate CA Surgical History S/P colostomy History of back surgery Hx of neck surgery Hx of spinal surgery Social History household members: spouse Smoking Status: Former smoker alcohol intake: never substance use type: does not use ROS Constitutional Constitutional: Denies chills, fever(s) or malaise Eyes Eyes: Denies blurry vision or change in vision ENT HEENT: Reports none Cardiovascular Cardiovascular: Denies chest pain or palpitations Respiratory/Chest Respiratory/Chest: Denies cough or shortness of breath with exertion Gastrointestinal Gastrointestinal: Denies abdominal pain, constipation or diarrhea Musculoskeletal Musculoskeletal: Denies back pain, joint stiffness or joint swelling Integumentary Integumentary: Denies dry skin, jaundice, lesions or rash Neurologic Neurologic: Denies confusion, syncope or weakness Psychiatric Psychiatric: Reports none; Denies anxiety or depression Endocrine Endocrinology: Denies excessive sweating, fatigue or flushing Hematologic/Lymphatic Hematologic/Lymphatic: Denies anemia, easy bleeding or easy bruising Physical Exam Const Orientation / Consciousness: confused, obtunded and lethargic Lab / Micro Data 08/01/24 02:46 08/01/24 02:46 Labs: Laboratory Results - last 24 hr 07/31/24 11:10: POC Glucose 185 H 07/31/24 17:00: POC Glucose 166 H 07/31/24 21:52: POC Glucose 140 H 08/01/24 02:46: WBC 8.6, RBC 3.73 L, Hgb 10.7 L, Hct 33.4 L, MCV 89.5, MCH 28.7, MCHC 32.0, RDW Std Deviation 57.0 H, RDW Coeff of Josue 17.6 H, Plt Count 222, MPV 10.2, Immature Gran % (Auto) 0.900, Neut % (Auto) 71.0 H, Lymph % (Auto) 13.2 L, [place] % (Auto) 12.3 H, Eos % (Auto) 2.3, Baso % (Auto) 0.3, Absolute Neuts (auto) 6.1, Absolute Lymphs (auto) 1.14, Nucleated RBC % 0, Sodium 142, Potassium 3.6, Chloride 113 H, Carbon Dioxide 20.3 L, Anion Gap 10, BUN 14, Creatinine 1.06, Estim Creat Clear Calc 73.88, Est GFR (MDRD) Non-Af 77, BUN/Creatinine Ratio 12.9, Glucose 165 H, Calcium 8.7, Ammonia 43.8 08/01/24 06:10: POC Glucose 152 H Micro: Microbiology 07/29/24 19:19 Urine Catheter - Benson Urine Culture - Preliminary Klebsiella oxytoca Citrobacter freundii Staphylococcus aureus 07/29/24 19:40 Blood Culture (Wb) - Arm Left Blood Culture - Preliminary No growth in 48 hours. 07/29/24 19:50 Blood Culture (Wb) - Arm Left Blood Culture - Preliminary No growth in 48 hours.
--- NOTE | 2024-08-01 11:23 | US_ITS ---
PROCEDURE: KIDNEY AND BLADDER, 08/01/2024 REASON FOR EXAM: SEPSIS UTI SP TUBE TECHNIQUE: Grayscale and color doppler ultrasound of the kidneys and bladder was performed. COMPARISON: 02/08/2022 FINDINGS: Right kidney: 11.3 cm in length. No visualized mass, calculus, or hydronephrosis. Left kidney: 13.8 cm in length. No visualized mass, calculus, or hydronephrosis. Bladder: Not well seen likely due to underdistention Other: Echogenic appearance of the imaged liver. US/Kidney and Bladder IMPRESSION: 1. No hydronephrosis. 2. Appearance of the hepatic parenchyma most commonly associated with hepatic s teatosis. Correlate for clinical and laboratory evidence of chronic liver disease. 3. Additional description as above. Reading Location: [id number]
[2024-08-01 11:52] LABS: Vancomycin, Trough Level 23.9 ug/mL (5.0-15.0)
[2024-08-01 12:05] LABS: Bedside Glucose 131 mg/dL (74-106)
[2024-08-01] MEDS: Ipratropium 0.5 MG/2.5 ML SOLUTION INHALATION (13:29)
[2024-08-01 13:30] VITALS: PULSE 63; RESP 16; O2SAT 92
[2024-08-01 14:04] VITALS: BP 140/79; PULSE 65; RESP 16; TEMP 36.8; O2SAT 97
--- NOTE | 2024-08-01 15:20 | DS.PCM_ITS ---
Providers Date of Admission: 07/29/24 Primary Care Physician: Dr. Brian Zimmerman MD Consultations 07/29/24 22:57 Consult: Urology Routine Consulting Provider: Felix Larios Reason for Consult: Suprapubic catheter change, admitted with comp UTI EMERGENT Consult: No MD Notified: Yes Date Notified: 08/01/24 Time Notified: 09:28 Method of Notification: Answering Service 07/30/24 07:11 Consult: Onc/Wound/manager water wastewater Routine Comment: Reason for Consult:: right buttocks ulcer and colostomy. Reason For Visit: SEPSIS, COMPLICATED UTI Diagnosis Discharge Diagnosis (1) Catheter-associated urinary tract infection: Status: Acute Code(s): T83.511A - Infection and inflammatory reaction due to indwelling urethral catheter, initial encounter; N39.0 - Urinary tract infection, site not specified Plan: polymicrobial: Klebsiella, Citrobacter (doubt S. aureus true pathogen especially since blood cultures are negative). continue pip/tazo through 08/01, DC with levofloxacin and treat through 08/07/2024. (2) Encephalopathy: Status: Acute Code(s): G93.40 - Encephalopathy, unspecified Plan: resolved. may have been polypharmacy. NH3 WNL DC baclofen Plan Chronic conditions: * paraplegia. wheelchair bound * hypothyroidism: levothyroxine * BPH: tamsulosin VTE prophylaxis: LMWH. DC home with [facility]. Medications at Discharge Home Medications baclofen 10 mg tablet 20 mg PO TID spasm 12/17/17 levothyroxine 125 mcg tablet 125 mcg PO DAILY high cholestro 12/17/17 tamsulosin 0.4 mg capsule 0.4 mg PO BID gu 12/17/17 icosapent ethyl 1 gram capsule (Vascepa) 2 g PO BID cholesterol 02/08/22 acetaminophen 650 mg tablet,extended release 1,300 mg PO Q8H PRN Pain 04/25/22 levofloxacin 750 mg tablet 750 mg PO DAILY #6 tabs 08/01/24 Hospital Course Operations None Procedures - (Suprapubic catheter change. ) Summary of Care Provided Minutes Spent on Discharge: 35 Hospital Course: Patient presents with fever and was diagnosed with a urinary tract infection. Patient has a chronic suprapubic catheter due to his paraplegia. Culture grew out Citrobacter as well as Klebsiella (also grew out Staph aureus but the more likely component of catheter colonization rather than true pathogen). Patient was on pip-tazo while he was here. Patient be discharged with levofloxacin. Patient be discharged home with home health care. Patient did have some confusion while he was here and his baclofen was discontinued and patient appears to be more oriented at this time. It is unlikely that is solely due to the medication as he had been on the baclofen for period of time but likely due to the underlying infection as well as hospitalization. Weight / BMI Weight Weight: 97.4 kg Body Mass Index (BMI) 34.4 ABG / Lab / Microbiology Data 08/01/24 02:46 08/01/24 02:46 Laboratory: Laboratory Results - last 24 hr 07/31/24 17:00: POC Glucose 166 H 07/31/24 21:52: POC Glucose 140 H 08/01/24 02:46: WBC 8.6, RBC 3.73 L, Hgb 10.7 L, Hct 33.4 L, MCV 89.5, MCH 28.7, MCHC 32.0, RDW Std Deviation 57.0 H, RDW Coeff of Josue 17.6 H, Plt Count 222, MPV 10.2, Immature Gran % (Auto) 0.900, Neut % (Auto) 71.0 H, Lymph % (Auto) 13.2 L, [place] % (Auto) 12.3 H, Eos % (Auto) 2.3, Baso % (Auto) 0.3, Absolute Neuts (auto) 6.1, Absolute Lymphs (auto) 1.14, Nucleated RBC % 0, Sodium 142, Potassium 3.6, Chloride 113 H, Carbon Dioxide 20.3 L, Anion Gap 10, BUN 14, Creatinine 1.06, Estim Creat Clear Calc 73.88, Est GFR (MDRD) Non-Af 77, BUN/Creatinine Ratio 12.9, Glucose 165 H, Calcium 8.7, Ammonia 43.8 08/01/24 06:10: POC Glucose 152 H 08/01/24 10:44: Vancomycin Trough 23.9 H 08/01/24 11:45: POC Glucose 131 H Microbiology: Microbiology 07/29/24 19:19 Urine Catheter - Benson Urine Culture - Preliminary Klebsiella oxytoca Citrobacter freundii Staphylococcus aureus 07/29/24 19:40 Blood Culture (Wb) - Arm Left Blood Culture - Preliminary No growth in 48 hours. 07/29/24 19:50 Blood Culture (Wb) - Arm Left Blood Culture - Preliminary No growth in 48 hours. 07/29/24 20:37 Mucosa - Nose SARS-CoV-2, Influenza & RSV (PCR) - Final Radiography Diagnostic Testing: Radiology Impression Renal Ultrasound 08/01/24 11:23 IMPRESSION: 1. No hydronephrosis. 2. Appearance of the hepatic parenchyma most commonly associated with hepatic steatosis. Correlate for clinical and laboratory evidence of chronic liver disease. 3. Additional description as above. Reading Location: [id number] Instructions Discharge Diet: No restrictions DC O2, CPAP, BIPAP Needs Home O2 Discharge instructions: No Meaningful Use Info Meaningful Use Meaningful Use Diagnoses (Choose all that apply): None applicable Ischemic Stroke Statin Dosing Therapy Reference: STATIN DOSE THERAPY REFERENCE: * Patients > 75 years receive moderate or high dose statin therapy. * Patients 75 years or YOUNGER should receive HIGH intensity statin dose unless contraindicated. You will be required to document reason for non-treatment if statin daily dose does not meet guidelines. HIGH DOSE STATIN THERAPY DAILY Atorvastatin > than or = to 40 mg Rosuvastatin > than or = to 20 mg Amlodipine + Atorvastatin > than or = to 2.5/40 mg Ezetimibe + Simvastatin 10/80 mg Simvastatin 80mg Discharge Plan Admission Admit Date/Time: 07/29/24 21:30 Primary Reason for Your Visit: Urinary tract infection Attending Provider: Basilio Dill Primary Care Provider: Brian Zimmerman Consulting Providers: Isha Zurita; iMller Blank; Felix Larios Instructions Additional Instructions / Restrictions: You had a urinary tract faction secondary to your chronic catheter. You will be on antibiotics through the . Please take those till those are completed. If you do have symptoms similar to what you had prior to coming in the hospital or concern for underlying infection it is possible it could be another urinary tract infection. If so, contact your provider or return to the emergency room. Discharge Orders/Prescriptions Prescriptions: New levofloxacin 750 mg tablet 750 mg PO DAILY Qty: 6 0RF Continued tamsulosin 0.4 MG capsule 0.4 mg PO BID baclofen 10 MG tablet 20 mg PO TID Patient Comments: 1.5 TABS = 15 MG TID levothyroxine 125 MCG tablet 125 mcg PO DAILY icosapent ethyl [Vascepa] 1 gram Capsule 2 g PO BID acetaminophen 650 mg Tablet Extended Release 1,300 mg PO Q8H PRN (Reason: Pain) Referrals / Follow Up: Brian Zimmerman MD [Primary Care Provider] - Within 2 Weeks Disposition Disposition (needs filled in before D/C Order can be placed): Home Health Service Charges/Coding Visit Charges Inpatient E&M: 32109 Disch Hosp >30min
--- NOTE | 2024-08-01 15:49 | CASEMGMT ---
Patient has order for discharge. JAZZY PAVON called to discuss discharge needs as patient is sleeping. wishes for patient to return home with resumption of [facility]. denies further needs or concerns at discharge. had no further questions. JAZZY PAVON called [facility], resumption of care planned for Thursday. JAZZY PAVON updated discharge plan.
--- NOTE | 2024-08-01 16:19 | PHA.DC_ITS ---
Pharmacy [facility] Service has performed discharge medication reconciliation and counseling for this patient. 1. Levofloxacin 750mg PO daily x 6 days The patient's discharge medication list was reviewed for discrepancies and discrepancies were resolved. The patient was counseled on the following discharge medications and changes in medications for homegoing were reviewed. The Reason for Use, instructions for use, and potential side effects were reviewed for all new medications. The patient's questions regarding all of their medications were answered. The patient was able to verbally demonstrate an understanding of their discharge medications. Medications at Discharge Home Medications baclofen 10 mg tablet 20 mg PO TID spasm 12/17/17 levothyroxine 125 mcg tablet 125 mcg PO DAILY high cholestro 12/17/17 tamsulosin 0.4 mg capsule 0.4 mg PO BID gu 12/17/17 icosapent ethyl 1 gram capsule (Vascepa) 2 g PO BID cholesterol 02/08/22 acetaminophen 650 mg tablet,extended release 1,300 mg PO Q8H PRN Pain 04/25/22 levofloxacin 750 mg tablet 750 mg PO DAILY #6 tabs 08/01/24
== END 2024-08-01 16:41 | disposition home health service (06) | DRG 698 ==
LOC: ED 21:34 → PCU 21:43
PROVIDERS: Internal Medicine; Admitting Provider Family Medicine; Emergency Provider Emergency Medicine; PCP Family Medicine; Referring Provider Family Medicine
DX: T83.511A Infection and inflammatory reaction due to indwelling urethral catheter, initial encounter (principal); L89.314 Pressure ulcer of right buttock, stage 4; A41.9 Sepsis, unspecified organism; G93.40 Encephalopathy, unspecified; G82.20 Paraplegia, unspecified; E11.65 Type 2 diabetes mellitus with hyperglycemia; J44.9 Chronic obstructive pulmonary disease, unspecified; I10 Essential (primary) hypertension; E03.9 Hypothyroidism, unspecified; Z68.35 Body mass index [BMI] 35.0-35.9, adult; Z93.3 Colostomy status; E78.00 Pure hypercholesterolemia, unspecified; K21.9 Gastro-esophageal reflux disease without esophagitis; N39.0 Urinary tract infection, site not specified; B96.1 Klebsiella pneumoniae [K. pneumoniae] as the cause of diseases classified elsewhere; N31.9 Neuromuscular dysfunction of bladder, unspecified; E66.812 Obesity, class 2; Z79.899 Other long term (current) drug therapy; Z87.891 Personal history of nicotine dependence; Z99.3 Dependence on wheelchair; X58.XXXA Exposure to other specified factors, initial encounter
CPT/HCPCS: 36415; 71046; 76770; 80048; 80053; 80202; 81001; 82140; 82962; 83036; 83605; 83735; 84100; 85025; 85610; 85730; 87040; 87077; 87086; 87088; 87186; 87631; 93005; 94640; 97161; 97165; 97802; 97803; 99285; 99406; A4216

== ENCOUNTER 2024-08-02 10:51 | Emergency (ER) | payer MEDICARE, SELFPAY ==
[2024-08-02] VITALS (9 sets, daily range): BP systolic 120–162; BP diastolic 72–76; PULSE 61–73; RESP 15–24; TEMP 36.6; O2SAT 94–97; BMI 37.0
--- NOTE | 2024-08-02 11:13 | RAD_ITS ---
PROCEDURE: CHEST PA AND LATERAL, 08/02/2024 REASON FOR EXAM: COUGH AND TACHYPNEA TECHNIQUE: PA and lateral views of the chest were obtained. COMPARISON: 07/29/2024 FINDINGS: Heart: Similar mild cardiomegaly. Mediastinum: Similar contours including widening of the RIGHT paratracheal stripe similar central vascular prominence. Lungs/pleura: Similar mild interstitial opacities in the lung bases. Suspect prominence of the epicardial fat pad projecting over the RIGHT lung base, similar to prior exams dating back to 04/10/2021. Similar bibasilar suspected atelectasis/scarring. No pleural effusion or visible pneumothorax. Bones: Demineralization. Multilevel spondylosis. ACDF. Thoracic dextroscoliosis.. Lines and support devices: None. Other: None. RAD/Chest PA and Lateral IMPRESSION: Similar appearance of the chest as above including cardiomegaly findings sugges tive of mild interstitial edema or atypical pneumonia/pneumonitis. Reading Location: [id number]
--- NOTE | 2024-08-02 11:14 | EX.ED.DYSGE1 ---
HPI History of Present Illness Chief Complaint: Weakness Detail of Chief Complaint: Less responsive per visiting nurse Informant: patient and other Onset/Context/Timing Onset: Today (Visiting nurse stated he was not alert.) Context: - (Unknown) Timing: Intermittent Quality: Apparently he was confused and not as responsive. Location: Generalized Current Severity: Gone Maximum Severity: Unknown Worsened by: Nothing Relieved by: Not applicable Associated Symptoms Associated Symptoms: Patient reports mild congestion and cough that is nonproductive Narrative Narrative: Patient is a 68-year-old male. He is oriented x 3. He is awake and he is alert. He states he did not call. Medics. He is uncertain whether his did or the visiting nurse. He was discharged in the hospital yesterday. He was admitted for acute encephalopathy due to catheter associated urinary tract infection. He denies headache, double vision blurry vision loss of vision. He denies hitchcock ears decreased hearing. He denies trouble with speech or swallowing. Denies dry mouth or thirst. He does endorse mild nasal congestion. He also endorses cough that is nonproductive. He denies shortness of breath. He denies chest pain, pressure tightness heaviness. He denies pain with breathing. He denies history of VTE. He denies abdominal pain, nausea, vomiting diarrhea constipation. He has a colostomy. Stool is normal consistency for him. Not noted any blood or mucus. He has indwelling Benson. He has no urologic symptoms. Prior similar symptoms: Yes Recent Illness/Hospitalization: Yes (Patient was discharged yesterday from the hospital.) [facility] Medical History Other acute postprocedural pain Paraplegic spinal paralysis History of pressure ulcer Wears glasses Thyroid disease Arthritis Uses wheelchair High cholesterol Gastric reflux COPD (chronic obstructive pulmonary disease) Hx of fracture of arm Hx of head injury Bedridden Smoker Right ischial pressure sore, stage 4 Home Medications ?Medication ?Instructions ?Recorded ?Last Taken ?Type baclofen 10 mg tablet 20 mg PO TID spasm 12/17/17 08/02/24 History levothyroxine 125 mcg tablet 125 mcg PO DAILY THYROID 12/17/17 08/02/24 History tamsulosin 0.4 mg capsule 0.4 mg PO BID PROSTATE 12/17/17 08/02/24 History icosapent ethyl 1 gram capsule 2 g PO BIDCM cholesterol 02/08/22 08/02/24 History (Vascepa) acetaminophen 650 mg 1,300 mg PO Q8H PRN Pain 04/25/22 Unknown History tablet,extended release levofloxacin 750 mg tablet 750 mg PO DAILY #6 tabs 08/01/24 08/02/24 Rx omeprazole 40 mg capsule,delayed 40 mg PO DAILY 08/02/24 08/02/24 History release Allergy/AdvReac Type Severity Reaction Status Date / Time Environmental Allergies: Allergy NEEDS Verified 07/29/24 19:17 Uncoded (dust) FOLLOW-UP house dust Allergy Other Verified 07/29/24 19:17 pollen extracts Allergy NEEDS Verified 07/29/24 19:17 FOLLOW-UP Family History Mother CVA (cerebral vascular accident) Hypertension Father Hypertension Prostate CA Surgical History S/P colostomy History of back surgery Hx of neck surgery Hx of spinal surgery Social History household members: spouse Smoking Status: Former smoker alcohol intake: never substance use type: does not use ROS ROS ED Constitutional Constitutional ED: Denies chills, fever(s), subjective, sweats or weight loss Eyes Eyes: Denies blurry vision, change in vision or diplopia ENT ENT ED: Reports rhinorrhea; Denies ear pain Cardiovascular Cardiovascular: Denies chest pain, orthopnea, palpitations, paroxysmal nocturnal dyspnea or racing heartbeat Respiratory/Chest Respiratory/Chest: Reports cough and dyspnea; Denies dyspnea on exertion, orthopnea, paroxysmal nocturnal dyspnea or sputum Gastrointestinal Gastrointestinal: Denies abdominal pain, diarrhea, melena, nausea or vomiting Genitourinary Genitourinary ED: Reports other Details: Indwelling Benson. ; Denies dysuria, hematuria or urinary frequency Musculoskeletal Musculoskeletal: Denies arthralgias or myalgias Integumentary Denies rash Neurologic Neurologic: Reports weakness; Denies headache(s) or paresthesias Psychiatric Psychiatric: Denies anxiety Endocrine Endocrinology: Denies cold intolerance or heat intolerance Hematologic/Lymphatic Hematologic/Lymphatic: Reports systems reviewed and no addt'l complaints, except as documented EXAM Physical Exam Const Vital Signs: 08/02/24 10:52 08/02/24 10:56 08/02/24 10:58 Temperature 98 F 98 F Temperature Source Oral Oral Pulse Rate 72 73 Respiratory Rate 24 H 22 H Respiratory Effort Normal Respiratory Pattern Normal Blood Pressure 162/76 H 162/76 H Blood Pressure Mean 104 104 Pulse Ox 97 96 Oxygen Delivery Method Nasal Cannula Nasal Cannula Oxygen Flow Rate (L/min) 2 2 08/02/24 11:56 08/02/24 12:00 Temperature 97.9 F 97.9 F Temperature Source Oral Oral Pulse Rate 61 64 Respiratory Rate 20 H 20 H Respiratory Effort Respiratory Pattern Blood Pressure 141/72 H 157/74 H Blood Pressure Mean 95 101 Pulse Ox 96 96 Oxygen Delivery Method Room Air Room Air Oxygen Flow Rate (L/min) Positive well nourished Constitutional Narrative: BMI is 37.0. Vital signs are remarkable for an elevated blood pressure and respiratory rate. General Appearance ED: Negative for pallor HEENT Reports moist mucous membranes HEENT Narrative: Head is atraumatic normocephalic. Ears normal. Nares slight drainage. Posterior pharynx is normal. Uvula is midline. Eyes PERRL and EOMs intact bilaterally General Eye ED: Negative for pale conjunctiva or scleral icterus Neck no lymphadenopathy, supple and no JVD Chest Wall inspection of chest normal and palpation of chest normal Resp normal respiratory effort and clear to auscultation bilaterally Cardio regular rate, regular rhythm, S1 normal heart sound, S2 normal heart sound and no murmurs GI normal to inspection, nondistended, normoactive bowel sounds, non-tender, non-distended and no masses; Negative for hepatosplenomegaly GI Narrative: Ostomy noted. Bag has brown soft stool. Auscultation: hypoactive bowel sounds Palpation: soft Back/Spine no CVA tenderness Extremity Extremity Narrative: Mild edema of his lower extremity, suspect this is due to the fact that he is wheelchair dependent. Neuro oriented x3 and CN's II-XII intact bilaterally Sensorium / Orientation: alert Psych mental status grossly normal Skin no rashes or lesions noted, no wounds and skin turgor normal General Skin Exam: Negative for jaundice or pallor MDM MDM MDM Narrative Medical decision making narrative: With patient complaint of respiratory symptoms this may represent viral infection. This possibly could represent aspiration pneumonitis versus pneumonia. Because of his altered mental status and the fact that he is tachypneic will obtain VBG to assess acid-base status especially as he had a metabolic acidosis on prior admission. CBC was obtained as well as electrolyte panel and UA. History & Record Review Additional record(s) reviewed:: Prior inpatient record (Dr. Dill's discharge summary authored on August 01 was reviewed.), Prior ED visit and Prior labs Lab Data Attestation: I reviewed the patient's lab results. Lab results narrative: CBC is remarkable for mild anemia with normal indices. Basic metabolic panel is unremarkable. BUN to creatinine ratio slightly elevated 21-1. UA is negative for evidence of infection. Labs: Laboratory Results - last 24 hr 08/02/24 08/02/24 11:03 12:04 WBC 7.5 RBC 3.77 L Hgb 10.8 L Hct 33.7 L MCV 89.4 MCH 28.6 MCHC 32.0 RDW Std Deviation 57.7 H RDW Coeff of Josue 17.7 H Plt Count 237 MPV 9.8 Immature Gran % (Auto) 0.500 Neut % (Auto) 62.3 Lymph % (Auto) 15.1 L Nelson % (Auto) 15.1 H Eos % (Auto) 6.6 H Baso % (Auto) 0.4 Absolute Neuts (auto) 4.7 Absolute Lymphs (auto) 1.13 Nucleated RBC % 0 Sodium 144 Potassium 3.6 Chloride 113 H Carbon Dioxide 21.3 Anion Gap 10 BUN 23 H Creatinine 1.10 Estim Creat Clear Calc 73.63 Est GFR (MDRD) Non-Af 74 BUN/Creatinine Ratio 21.3 H Glucose 103 H Calcium 8.9 Urine Color Yellow Urine Clarity Clear Urine pH 7.0 Ur Specific [place] 1.005 Urine Protein 15 H Urine Glucose (UA) Normal Urine Ketones Negative Urine Occult Blood 10 H Urine Nitrite Negative Urine Bilirubin Negative Urine Urobilinogen Normal Ur Leukocyte Esterase 500 H Urine RBC 0 SEEN Urine WBC 0-5 SEEN Ur Squamous Epith Cells 0 SEEN Urine Bacteria 0 SEEN Urine Mucus 0 SEEN ABG Data ABG results: ABG 08/02/24 11:39 Specimen Type LUZ ELENA Sample Site Not entered O2 % 21.0 VBG pH 7.54 H VBG pO2 81 H VBG HCO3 32 H VBG Total CO2 33 VBG O2 Sat (Calc) 97 H VBG Base Excess 10 H POC Mix VBG pCO2 Pt Tmp 37.5 L O2 Delivery Device Not entered Radiography Chest X-Ray - ED: 2 View, Read by ED Physician (Independent reviewed interpreted by me at 1156. Film slightly rotated. There is no cardiomegaly. There is no effusion or infiltrate. Film is suboptimal.), Unchanged, No Acute Disease and Chronic Changes Diagnostic Testing: Clinical Impression(s) from Imaging Studies Chest X-Ray 08/02/24 11:13 IMPRESSION: Similar appearance of the chest as above including cardiomegaly findings suggestive of mild interstitial edema or atypical pneumonia/pneumonitis. Reading Location: [facility] Radiology report was reviewed. Patient has evidence of chronic changes. This is unchanged from prior. Treatment and Re-Evaluation :: Since patient has no onset of pneumonia, urinary tract infection and is back to baseline will discharge to home. Discharge Plan Triage Chief Complaint: Weakness ED Provider: Hebert Saavedra Dx/Rx/DC Orders Clinical Impression: Acute alteration in mental status, Paraplegic spinal paralysis, Wheelchair dependent, S/P colostomy, Chronic suprapubic catheter, History of COPD, History of hypothyroidism, Elevated blood pressure reading with diagnosis of hypertension, Tachypnea Instructions: ED ALOC Prescriptions: No Action tamsulosin 0.4 MG capsule 0.4 mg PO BID baclofen 10 MG tablet 20 mg PO TID Patient Comments: pt states they increased to 2 tid levothyroxine 125 MCG tablet 125 mcg PO DAILY icosapent ethyl [Vascepa] 1 gram Capsule 2 g PO BIDCM acetaminophen 650 mg Tablet Extended Release 1,300 mg PO Q8H PRN (Reason: Pain) levofloxacin 750 mg tablet 750 mg PO DAILY Qty: 6 0RF Patient Comments: START DATE 08/01/24 omeprazole 40 mg capsule,delayed release(DR/EC) 40 mg PO DAILY Primary Care Provider: Brian Zimmerman Referrals: Brian Zimmerman MD [Primary Care Provider] - 1-2 Weeks Print Language: St Helenian Disposition Disposition: Home, Self Care
[2024-08-02 11:33] LABS: Absolute Lymphocyte Count 1.13 X10^3/uL (0.83-4.51); Absolute Neutrophil Count 4.7 X10^3/uL (2.0-7.7); Basophil# 0.03 X10^3/uL; Basophil% 0.4 % (0-1); Eosinophil# 0.49 X10^3/uL; Eosinophils% 6.6 % (0-5); Hematocrit 33.7 % (40-54); Hemoglobin 10.8 g/dL (13.0-16.5); Lymphocyte # 1.13 X10^3/ul (0.83-4.51); Lymphocyte % 15.1 % (19-41); Mean Corpuscular Hgb 28.6 pg (27.0-32.0); Mean Corpuscular Volume 89.4 fL (80-94); Mean Platelet Vol. 9.8 fl (6.2-12.0); Monocyte# 1.13 X10^3/uL; Monocyte% 15.1 % (0-10); NRBC Flagged by Analyzer 0 % (0-5); Neutrophil # 4.65 X10^3/uL (2.7-7.7); Neutrophil % 62.3 % (47-70); Platelet Count 237 K/mm3 (150-450); RBC Distribution Width CV 17.7 % (11.6-14.6); RBC Distribution Width SD 57.7 fl (35.1-43.9); Red Blood Count 3.77 M/mm3 (4.6-6.2); White Blood Count 7.5 K/mm3 (4.4-11.0)
[2024-08-02 11:42] LABS: Blood Gas Specimen Type VEN; O2 Delivery Device Not entered; SITE Not entered; VBG BASE EXCESS 10 mmol/L (-1.0-3.5); VBG Bicarbonate 32 mmol/L (22-26); VBG PO2 81 mmHg (25-40); VBG SO2 97 % (50-70); VBG TCO2 33 mmol/L (23-33); VBG pCO2 37.5 mmHg (41-51); VBG pH 7.54 (7.32-7.42)
[2024-08-02 11:58] LABS: Anion Gap 10 (5-15); BUN 23 mg/dL (4-19); BUN/Creat Ratio 21.3 RATIO (10-20); Calcium,Total 8.9 mg/dL (7.6-11.0); Carbon Dioxide 21.3 mmol/L (21.0-32.0); Chloride 113 mmol/L (98-108); EST Glomerular Filtration Rate 74 (>60); Estimated Creatinine Clearance 73.63 ml/min (50-250); Glucose 103 mg/dL (70-99); Potassium 3.6 mmol/L (3.3-5.1); Sodium Level 144 mmol/L (133-145)
[2024-08-02 12:14] LABS: Bacteria 0 SEEN /hpf (None Seen); Mucous, Urine 0 SEEN /hpf (<or=2+); Red Blood Cells-Urine 0 SEEN /hpf (0-5); Squamous Epithelial Cells - UA 0 SEEN /hpf (0-5)
[2024-08-02 12:17] LABS: Color, Urine Yellow (Yellow); Glucose, Dipstick Normal (Normal); Ketone-Dipstick Negative (Negative); Leukocyte Esterase-Dipstick 500 /ul (Negative); Nitrite-Dipstick Negative (Negative); Occult Blood-Urine 10 /ul (Negative); Protein-Dipstick 15 mg/dl (Negative); Specific Gravity, Urine 1.005 (1.002-1.030); Urine Bilirubin Dipstick Negative (Negative); Urine Clarity Clear (Clear); Urine Urobilinogen Normal (Normal)
[2024-08-02 12:30] LABS: White Blood Cells 0-5 SEEN /hpf (0-5)
[2024-08-02] MEDS: Ondansetron 4 MG/2 ML Vial IV (13:40)
[2024-08-02] MEDS: Morphine 4 MG/ML Syringe IV (13:40)
== END 2024-08-02 18:23 | disposition home or self-care (01) ==
PROVIDERS: Emergency Provider Emergency Medicine; PCP Family Medicine; Visit Provider Emergency Medicine
DX: R41.82 Altered mental status, unspecified (principal); Z93.3 Colostomy status; J44.9 Chronic obstructive pulmonary disease, unspecified; I10 Essential (primary) hypertension; Z79.899 Other long term (current) drug therapy; Z87.891 Personal history of nicotine dependence; Z99.3 Dependence on wheelchair
CPT/HCPCS: 71046; 80048; 81001; 82803; 85025; 96374; 96375; 96376; 99285; J2405

== ENCOUNTER 2024-08-07 17:42 | Emergency (ER) | payer MEDICARE, SELFPAY ==
[2024-08-07 17:50] VITALS: BP 140/68; PULSE 77; RESP 18; TEMP 36.6; O2SAT 94; BMI 35.9
--- NOTE | 2024-08-07 18:13 | EKG12_ITS ---
Test Reason : GEN ILLNESS Blood Pressure : */* mmHG Vent. Rate : 70 BPM Atrial Rate : 70 BPM P-R Int : 172 ms QRS Dur : 90 ms QT Int : 396 ms P-R-T Axes : 66 53 69 degrees QTcB Int : 427 ms Normal sinus rhythm Normal ECG Confirmed by Moustapha Ortega ([id number]), graphics editor MAMIE JUAREZ ([id number]) on 08/08/2024 9:24:26 AM Referred By: MAREK Confirmed By: Moustapha Ortega
[2024-08-07 18:23] LABS: Absolute Lymphocyte Count 1.72 X10^3/uL (0.83-4.51); Absolute Neutrophil Count 6.3 X10^3/uL (2.0-7.7); Basophil# 0.09 X10^3/uL; Basophil% 0.9 % (0-1); Eosinophils% 4.2 % (0-5); Hematocrit 35.4 % (40-54); Hemoglobin 11.4 g/dL (13.0-16.5); Lymphocyte # 1.72 X10^3/ul (0.83-4.51); Lymphocyte % 17.9 % (19-41); Mean Corp Hgb Conc 32.2 g/dL (32-36); Mean Corpuscular Hgb 28.9 pg (27.0-32.0); Mean Corpuscular Volume 89.6 fL (80-94); Mean Platelet Vol. 10.1 fl (6.2-12.0); Monocyte# 0.91 X10^3/uL; Monocyte% 9.5 % (0-10); NRBC Flagged by Analyzer 0 % (0-5); Neutrophil # 6.32 X10^3/uL (2.7-7.7); Neutrophil % 65.8 % (47-70); Platelet Count 331 K/mm3 (150-450); RBC Distribution Width CV 16.8 % (11.6-14.6); RBC Distribution Width SD 55.9 fl (35.1-43.9); Red Blood Count 3.95 M/mm3 (4.6-6.2); White Blood Count 9.6 K/mm3 (4.4-11.0)
--- NOTE | 2024-08-07 18:30 | RAD_ITS ---
PROCEDURE: CHEST 1 VIEW (PORTABLE) 08/07/2024 REASON FOR EXAM: SOB TECHNIQUE: Frontal view of the chest. COMPARISON: 08/02/2024 FINDINGS: Hardware: None Heart: Heart size is mildly enlarged. Lungs: Mild bibasilar atelectasis. No focal consolidation. No pneumothorax. No pleural effusion. Bones: Status post ACDF. Other: RAD/Chest 1 View (Portable) IMPRESSION: No Acute Findings. Reading Location: [facility]
--- NOTE | 2024-08-07 18:31 | CT_ITS ---
PROCEDURE: BRAIN/HEAD WITHOUT CONTRAST 08/07/2024 REASON FOR EXAM: ALTERED MENTAL STATUS TECHNIQUE: Head CT without intravenous contrast. Coronal and Sagittal reconstruction series were provided. One or more dose reduction techniques were used (e.g., Automated exposure control, adjustment of the mA and/or kV according to patient size, use of iterative reconstruction technique. COMPARISON: CT brain 05/02/2022 FINDINGS: Postoperative changes right frontotemporal craniotomy. Encephalomalacia right temporal lobe, likely from prior insult. No acute intracranial hemorrhage, mass, mass effect, midline shift or pathologic extra-axial fluid collection. Mild parenchymal atrophy with commensurate increase in CSF containing spaces. Patchy white matter hypodensities, patient demographics favor chronic microvascular ischemic changes. Mild paranasal sinus mucosal thickening. Status post right canal wall up mastoidectomy. Small left mastoid effusions. Stable appearance left frontal calvarial fracture, extending through the left frontal sinus. CT/Brain/Head without Contrast IMPRESSION: No acute intracranial abnormality. Chronic microvascular ischemic and involutional changes. Other chronic findings as described above. Reading Location: [facility]
--- NOTE | 2024-08-07 18:53 | EX.ED.DYSGE1 ---
HPI History of Present Illness Chief Complaint: General Illness Informant: patient, family and EMS Narrative Narrative: 68-year-old male brought by family because of hallucinations since yesterday. Intermittent. Family states he has been insightful into it, and realized he was incorrect these couple times. He recently was admitted to the hospital for urinary infection, he has an indwelling suprapubic catheter as well as a diverting colostomy because of sacral wounds, and a history of severe weakness of his legs due to muscle atrophy due to a remote trauma/accident. He is usually able to pull himself up and stand/walk, but since being home for the last 5 days and just finishing antibiotics, he has been too weak to do so and has remained basically in bed. No other new symptoms. No cough or shortness of breath, abdominal pain, vomiting, fevers, headache, focal neurologic deficits. [facility] Medical History Fusion of spine, cervical region Thoracic myelopathy Cervical myelopathy Colostomy in place Wheelchair dependent Constipation Spinal cord injury Tobacco abuse Hypothyroidism Hyperlipidemia COPD (chronic obstructive pulmonary disease) Other acute postprocedural pain Paraplegic spinal paralysis History of pressure ulcer Wears glasses Thyroid disease Arthritis Uses wheelchair High cholesterol Gastric reflux COPD (chronic obstructive pulmonary disease) Hx of fracture of arm Hx of head injury Bedridden Smoker Right ischial pressure sore, stage 4 Home Medications ?Medication ?Instructions ?Recorded ?Last Taken ?Type levothyroxine 125 mcg tablet 125 mcg PO DAILY THYROID 12/17/17 08/02/24 History tamsulosin 0.4 mg capsule 0.4 mg PO BID PROSTATE 12/17/17 08/02/24 History icosapent ethyl 1 gram capsule 2 g PO BIDCM cholesterol 02/08/22 08/02/24 History (Vascepa) acetaminophen 650 mg 1,300 mg PO Q8H PRN Pain 04/25/22 Unknown History tablet,extended release levofloxacin 750 mg tablet 750 mg PO DAILY #6 tabs 08/01/24 08/02/24 Rx omeprazole 40 mg capsule,delayed 40 mg PO DAILY 08/02/24 08/02/24 History release baclofen 20 mg tablet 20 mg PO TID PRN 08/07/24 Unknown History meclizine 25 mg tablet 25 mg PO TID PRN dizziness #20 tabs 08/07/24 Unknown Rx Allergy/AdvReac Type Severity Reaction Status Date / Time Environmental Allergies: Allergy NEEDS Verified 07/29/24 19:17 Uncoded (dust) FOLLOW-UP house dust Allergy Other Verified 07/29/24 19:17 pollen extracts Allergy NEEDS Verified 07/29/24 19:17 FOLLOW-UP Family History Mother CVA (cerebral vascular accident) Hypertension Father Hypertension Prostate CA Surgical History S/P colostomy History of back surgery Hx of neck surgery Hx of spinal surgery Social History household members: spouse Smoking Status: Former smoker alcohol intake: never substance use type: does not use ROS ROS ED Constitutional Constitutional ED: Denies chills or fever(s) Eyes Eyes: Denies change in vision or diplopia ENT ENT ED: Denies rhinorrhea or sore throat Cardiovascular Cardiovascular: Denies chest pain or palpitations Respiratory/Chest Respiratory/Chest: Denies cough or dyspnea Gastrointestinal Gastrointestinal: Denies abdominal pain, hematochezia, melena, nausea or vomiting Genitourinary Genitourinary ED: Denies dysuria or hematuria Musculoskeletal Musculoskeletal: Denies back pain or neck pain Integumentary Denies abscess or rash Neurologic Neurologic: Reports as per HPI, confusion and weakness; Denies headache(s) or paresthesias Psychiatric Psychiatric: Reports hallucinations; Denies suicidal thoughts EXAM Physical Exam Const Vital Signs: 08/07/24 17:50 08/07/24 17:53 08/07/24 19:42 Temperature 97.8 F Temperature Source Oral Pulse Rate 77 76 Respiratory Rate 18 20 H Respiratory Effort Normal Respiratory Pattern Normal Blood Pressure 140/68 H 118/65 Blood Pressure Mean 92 82 Pulse Ox 94 94 Oxygen Delivery Method Room Air Room Air Positive well nourished and well developed General Appearance ED: well developed and NAD HEENT Reports moist mucous membranes normocephalic and atraumatic Eyes PERRL and EOMs intact bilaterally Neck full ROM and supple Resp normal respiratory effort and clear to auscultation bilaterally Cardio regular rate, regular rhythm and no murmurs GI non-tender and non-distended Auscultation: normoactive bowel sounds Palpation: soft Back/Spine no CVA tenderness General Back: other FROM Extremity normal to inspection General Extremety ED: Negative for edema, pulses abnormal or tenderness General Extremity: Negative for edema or pulses abnormal Neuro oriented x3, CN's II-XII intact bilaterally and no sensory deficits noted Neuro Narrative: Weakness in legs, the right is weaker than the left but he is able to move them both Sensorium / Orientation: awake and alert Skin no rashes or lesions noted MDM MDM MDM Narrative Medical decision making narrative: Infectious, cardiopulmonary, embolic workup obtained in addition to a CT of the head to evaluate for acute ILLUMINATOR etiologies of his intermittent hallucinations. I reviewed those images, and I agree with the report which is negative for any acute. In addition is 1 view chest x-ray is negative for acute pneumonia on my interpretation radiology in agreement there as well. His urine looks clean as it showed since he just finished Levaquin, 2 sequential troponin measurements are within normal limits and decreasing, he has no significant leukocytosis or metabolic derangement except he was a little prerenal. states she is constantly having him drink fluids and his Benson bag is constantly full of right yellow transparent urine, and although we did give him a liter of fluid just in case, his vital signs remain normal and he does not have symptoms or findings of congestive heart failure to explain his mild prerenal azotemia. Although his creatinine is just barely higher than normal for him, I do not think is high enough to require admission to the hospital. On reevaluation, he has a chronic wound on his right buttock/hip, so we evaluated that and looks very clean, well cared for, states she has been watching it and has been looking good she changes the dressings, they have home health and they go to wound care regularly. He is scheduled to see his PCP in 3 days and follow-up for the hospital visit. The patient tells me that a little while ago he was feeling vertiginous/spinning sensation but it is gone now. He confirms that he has been having episodes of that in the last couple days. This is the first he tells me of it. May be related to his hallucinations I see no other evidence of acute organic disease, and given all the care he has at home, I am comfortable with discharging him and the is comfortable with that as well. I am prescribing him meclizine to use as needed in the meantime until they follow-up with her PCP. History & Record Review Additional record(s) reviewed:: Other (Recent urine culture, sensitive to levofloxacin and recent parenteral antibiotics) Lab Data Attestation: I reviewed the patient's lab results. Labs: Laboratory Results - last 24 hr 08/07/24 08/07/24 08/07/24 18:07 19:10 20:01 WBC 9.6 RBC 3.95 L Hgb 11.4 L Hct 35.4 L MCV 89.6 MCH 28.9 MCHC 32.2 RDW Std Deviation 55.9 H RDW Coeff of Josue 16.8 H Plt Count 331 MPV 10.1 Immature Gran % (Auto) 1.700 H Neut % (Auto) 65.8 Lymph % (Auto) 17.9 L Major % (Auto) 9.5 Eos % (Auto) 4.2 Baso % (Auto) 0.9 Absolute Neuts (auto) 6.3 Absolute Lymphs (auto) 1.72 Nucleated RBC % 0 Sodium 142 Potassium 3.6 Chloride 106 Carbon Dioxide 26.0 Anion Gap 10 BUN 20 H Creatinine 1.33 H Estim Creat Clear Calc 59.92 Est GFR (MDRD) Non-Af 59 L BUN/Creatinine Ratio 14.8 Glucose 139 H Calcium 9.2 Total Bilirubin < 0.15 AST 12 ALT 21 Alkaline Phosphatase 109 Troponin T High Sens 22 Troponin T Hi Sens 2 Hr 21 Total Protein 6.8 Albumin 3.1 L Globulin 3.7 Albumin/Globulin Ratio 0.8 L Urine Color Yellow Urine Clarity Clear Urine pH 6.5 Ur Specific [place] 1.010 Urine Protein 15 H Urine Glucose (UA) Normal Urine Ketones Negative Urine Occult Blood 10 H Urine Nitrite Negative Urine Bilirubin Negative Urine Urobilinogen Normal Ur Leukocyte Esterase 25 H Urine RBC 0 SEEN Urine WBC 0-5 SEEN Ur Squamous Epith Cells 0 SEEN Urine Bacteria 0 SEEN Urine Mucus 0 SEEN Radiography Diagnostic Testing: Clinical Impression(s) from Imaging Studies Chest X-Ray 08/07/24 18:30 IMPRESSION: No Acute Findings. Reading Location: [facility] Brain CT 08/07/24 18:31 IMPRESSION: No acute intracranial abnormality. Chronic microvascular ischemic and involutional changes. Other chronic findings as described above. Reading Location: [facility] Rhythm Strip Rhythm Strip: Sinus Rhythm Rate: 70 Ectopy: None EKG Initial EKG: Attestation: I personally reviewed and interpreted this EKG as follows: Interpretation: Sinus Rhythm and No Acute Injury Pattern Comments: Nml axis & intervals; nml EKG Discharge Plan Triage Chief Complaint: General Illness ED Provider: Kit Harris Dx/Rx/DC Orders Clinical Impression: Hallucinations, unspecified, Right ischial pressure sore, stage 4, Vertigo, intermittent, Debility Instructions: Vertigo Inner Ear Problems Prescriptions: New meclizine 25 mg tablet 25 mg PO TID PRN (Reason: dizziness) Qty: 20 0RF No Action tamsulosin 0.4 MG capsule 0.4 mg PO BID levothyroxine 125 MCG tablet 125 mcg PO DAILY icosapent ethyl [Vascepa] 1 gram Capsule 2 g PO BIDCM acetaminophen 650 mg Tablet Extended Release 1,300 mg PO Q8H PRN (Reason: Pain) levofloxacin 750 mg tablet 750 mg PO DAILY Qty: 6 0RF Patient Comments: START DATE 08/01/24 baclofen 20 mg tablet 20 mg PO TID PRN omeprazole 40 mg capsule,delayed release(DR/EC) 40 mg PO DAILY Primary Care Provider: Brian Zimmerman Referrals: Brian Zimmerman MD [Primary Care Provider] - Keep [facility] appointment Print Language: Citizen Of [place] Disposition Disposition: Home, Self Care
[2024-08-07 18:56] LABS: ALB/GLOB Ratio 0.8 RATIO (0.9-2.4); AST(SGOT) 12 U/L (<=37); Alanine Aminotransfer ALT/SGPT 21 U/L (<=46); Albumin, Serum 3.1 g/dL (3.4-4.8); Alkaline Phosphatase 109 U/L (40-129); Anion Gap 10 (5-15); BUN 20 mg/dL (4-19); BUN/Creat Ratio 14.8 RATIO (10-20); Calcium,Total 9.2 mg/dL (7.6-11.0); Chloride 106 mmol/L (98-108); Creatinine, Serum 1.33 mg/dL (0.70-1.20); EST Glomerular Filtration Rate 59 (>60); Estimated Creatinine Clearance 59.92 ml/min (50-250); Globulin 3.7 g/dL (2.2-4.2); Glucose 139 mg/dL (70-99); Potassium 3.6 mmol/L (3.3-5.1); Protein, Total 6.8 g/dL (5.9-8.4); Sodium Level 142 mmol/L (133-145); Total Bilirubin < 0.15 mg/dL (0.00-1.30)
[2024-08-07 19:09] LABS: Troponin T High Sensitivity 22 ng/L (<=22)
[2024-08-07 19:14] LABS: Bacteria 0 SEEN /hpf (None Seen); Mucous, Urine 0 SEEN /hpf (<or=2+); Red Blood Cells-Urine 0 SEEN /hpf (0-5); Squamous Epithelial Cells - UA 0 SEEN /hpf (0-5)
[2024-08-07 19:17] LABS: Color, Urine Yellow (Yellow); Glucose, Dipstick Normal (Normal); Ketone-Dipstick Negative (Negative); Leukocyte Esterase-Dipstick 25 /ul (Negative); Nitrite-Dipstick Negative (Negative); Occult Blood-Urine 10 /ul (Negative); Protein-Dipstick 15 mg/dl (Negative); Urine Bilirubin Dipstick Negative (Negative); Urine Clarity Clear (Clear); Urine Urobilinogen Normal (Normal); Urine pH 6.5 (5.0 - 8.0)
[2024-08-07 19:42] VITALS: BP 118/65; PULSE 76; RESP 20; O2SAT 94
[2024-08-07 19:46] LABS: White Blood Cells 0-5 SEEN /hpf (0-5)
[2024-08-07 20:30] LABS: Troponin T High Sens 2 HR 21 ng/L (<=22)
[2024-08-07] MEDS: 0.9% Normal Saline (1000mL) 1,000 ML 999 ML IV (20:36)
[2024-08-07 20:56] VITALS: BP 116/96; PULSE 74; RESP 20; TEMP 36.6; O2SAT 96
[2024-08-07 21:07] VITALS: BP 140/74; PULSE 80; RESP 18; O2SAT 96
== END 2024-08-07 21:49 | disposition home or self-care (01) ==
PROVIDERS: Emergency Provider Emergency Medicine; PCP Family Medicine; Visit Provider Emergency Medicine
DX: R44.3 Hallucinations, unspecified (principal); L89.314 Pressure ulcer of right buttock, stage 4; J44.9 Chronic obstructive pulmonary disease, unspecified; R42 Dizziness and giddiness; Z87.891 Personal history of nicotine dependence
CPT/HCPCS: 70450; 71045; 80053; 81001; 84484; 85025; 93005; 96360; 99285; A4216

== ENCOUNTER 2024-08-29 14:27 | Outpatient (RCR) | payer MEDICARE, SELFPAY ==
[2024-07-28 00:38] VITALS: BP 124/70; PULSE 79; RESP 18; TEMP 36.3; BMI 35.5
[2024-08-29 14:52] VITALS: BP 192/116; PULSE 78; RESP 18; TEMP 36.5; BMI 35.5
--- NOTE | 2024-08-29 18:20 | PCM.WC.PN ---
History of Present Illness Date of Service: 08/29/24 Chief Complaint: Right ischial pressure sore, Stage IV. History of Wound: This is a 68-year-old white male who presented to the wound healing center with complaints of pressure ulcer to right buttock area with extension to the right ischial bone. This started in October,. Patient's was treating with OTC creams and keeping area clean. The ulcer starting increasing in size and went to the Emergency Department on 02/08/22. CT showed subcutaneous and deep soft tissue involvement and possible early abscess formation. The bone was not addressed. The patient has very limited mobility as a result of a prior spine injury/surgery. He utilizes a wheelchair at all times. He has not been using his lm lift at home to transfer but has been using a board to slide himself from his bed to chair at home. He sits in his wheelchair almost all day, not really able to change positions. They finally obtained a low air loss overlay to their regular mattress at home. A roho cushion was ordered for his wheelchair. Patient is a former smoker, he quit early 2023. Surgery 04/28/22 - Excision right ischial pressure sore, Stage IV, with partial ostectomy for osteomyelitis. Size of wound 8 x 7 x 4.5 cm. Operative tissue cultures positive for MSSA and Cutibacterium acnes. Bone cultures positive for MSSA and Corynebacterium striatum. He is being treated with Augmentin. Pathology from surgery 04/28/22 showed chronic reparative and reactive change. No evidence of acute osteomyelitis. He had a diverting colostomy placed on 11/21/[address] Romero. Surgery 08/26/23 - Excision recurrent right ischial pressure sore, Stage IV, with partial ostectomy for osteomyelitis. Discharged home on 08/27/23. Pathology right ischial pressure sore soft tissue showed focal ulceration, acute and chronic inflammation an granulation tissue reaction. Right ischial bone, partial ostectomy showed fragments of bone with chronic inflammation and reactive changes, negative for acute osteomyelitis. Operative soft tissue cultures from 08/26/23 positive for Serratia marcescens, Staphylococcus capitis, and Corynebacterium striatum. Operative bone cultures from 08/26/23 positive for Serratia marcescens and Corynebacterium striatum. He was started on Levaquin and Doxycycline until he can be seen by ID on 11/04/23. Subjective Subjective Patient has been in and out of the hospital for urinary tract infections. He is currently being prescribed Macrobid nightly for prophylaxis. Stable per 's report. Objective Data Objective Data Vital Signs: Vital Signs Temp Pulse Resp BP O2 Del Method 97.7 F L 78 18 192/116 H Room Air 08/29/24 14:52 08/29/24 14:52 08/29/24 14:52 08/29/24 14:52 08/29/24 14:52 Oxygen Delivery Method Room Air Weight: 222 lb 3.615 oz Body Mass Index (BMI) 35.5 Charges/Coding Visit Charges Office Visits / Consults: 04164 OV L3 Est 20min Physical Exam Narrative Persistent right ischial wound Measured 4 x 3 cm and 3 cm deep (down to muscle). No exposed bone at the base, all granulated. No fluid collections. Surrounding skin appears healthy Const alert and oriented x3 General Appearance: cooperative Resp normal respiratory effort GI GI Narrative: Diverting ostomy is present and is productive Debridement Note Debridement Note No debridement was completed: No debridement was completed today Post-Debridement Measurements and Additional Note: Post-Debridement Measurements/Treatment WC - Nurse 1 - General Ulcer Assessment Start: 08/29/24 14:49 Freq: Status: Active Protocol: KIRA Activity Type Activity Date Activity User E-sign Co-sign Detail Recorded Client Recorded Date Recorded By Document 08/29/24 14:52 [id number] 08/29/24 15:02 08/29/24 14:52 Height and Weight Body Mass Index (BMI) 35.5 BMI Classification Obese Vital Signs Temperature (97.8 F-99.1 F) 97.7 F L Temperature Source Temporal Pulse Rate (60-100) 78 Pulse Location Monitor Respiratory Rate (12-18) 18 Respiratory rate source Observation Oxygen Delivery Method Room Air Blood Pressure (90/60-120/80) 192/116 H Blood Pressure Mean (mm Hg) 141 Source Monitor Position Sitting Blood Pressure Location Left Arm History Since Last Visit- (Skip if this is Patient's initial visit) Have you changed medications since your No last visit? Any new allergies or adverse reactions No Had a fall/change in ADL's that may No increase risk of falls Signs or symptoms of abuse and/or No neglect since last visit Have you been in the hospital since your Yes last visit? Has dressing in place as prescribed Yes Has compression in place as prescribed N/A Has offloadiing in place as prescribed N/A Experienced any changes in pain level or No management Left Footwear Regular Shoe Right Footwear Regular Shoe Pain Scale: 0-10 Numeric Is Patient Pain Free? Yes WC - Nurse 1 - General Ulcer Measurement Start: 08/29/24 14:49 Freq: Status: Active Protocol: Activity Type Activity Date Activity User E-sign Co-sign Detail Recorded Client Recorded Date Recorded By Document 08/29/24 14:52 SHAISTA [id number] 08/29/24 15:02 SHAISTA 08/29/24 14:52 Wound Center Nurse 1 #5- R ischium Post op -Current Size (cm) - Length 4 -Current Size (cm) - Width 4.5 -Current Size (cm) - Depth 3.8 -Total Square Cm 18.0 -Tunneling Yes -Tunneling Position (O'clock) 1 -Tunneling Distance (cm) 5.5 -Exudate Amt Large -Exudate Type Serosanguineous -Wound Margin Distinct, Outline Attached -Granulation Amt Large (67-100%) -Granulation Quality Red -Texture (Michelle-wound Skin Appearance) Assessed -Moisture (Michelle-wound Skin Appearance) Maceration -Color (Michelle-wound Skin Appearance) Assessed, Erythema -Temperature (Michelle-wound Skin No Abnormality Appearance) (Pt Warm) -Tenderness on Palpation (Michelle-wound No Skin Appearance) -Ulcer Cleansing Soap and Water -Foul Odor after Cleansing No -Anesthetic Used 4% Lidocaine Solution WC - Nurse 2 - General Ulcer CM Notes Start: 08/29/24 14:49 Freq: Status: Active Protocol: Activity Type Activity Date Activity User E-sign Co-sign Detail Recorded Client Recorded Date Recorded By Document 08/29/24 15:30 ESTER [id number] 08/29/24 15:31 ESTER 08/29/24 15:30 Wound Center Nurse 2 -Correct Patient Yes -Correct Side, Site, Position No -Correct Procedure No -Procedure Performed No -Wound/Ulcer Outcome Not Healed Pain Scale: 0-10 Numeric Is Patient Pain Free? Yes DILCIA - Nurse 3 - General Ulcer D/C NN Start: 08/29/24 14:49 Freq: Status: Active Protocol: Activity Type Activity Date Activity User E-sign Co-sign Detail Recorded Client Recorded Date Recorded By Document 08/29/24 15:40 SHAISTA [id number] 08/29/24 15:42 SHAISTA 08/29/24 15:40 Wound Care Center Nurse 3 #5- R ischium Post op -Ulcer Cleansing Rinsed/ Irrigated with Saline -Foul Odor after Cleansing No -Other Dressing Saline gauze sl moistened -Other Covering ABD -Wound Comment(s) May alternate with Dakins, discussed with family. Dressing applied per Mark Elder today. Treatment Response Procedure Tolerated Well Pain Scale: 0-10 Numeric Is Patient Pain Free? Yes WC - Visit Discharge Discharge Condition Stable Ambulatory Status Wheelchair Facility Type Home Health Orders Sent Yes Assessment/Plan Assessment/Plan (1) Right ischial pressure sore: CODE(S): L89.319 - Pressure ulcer of right buttock, unspecified stage (2) Right ischial pressure sore, stage 4: CODE(S): L89.314 - Pressure ulcer of right buttock, stage 4 PLAN: Wound care -saline moistened gauze packed into the ulcer twice daily and prn covered with ABD or gauze. Wash the ulcer and michelle wound with soap and water at the time of the dressing change. His has been working on getting the [facility] records about his spine surgery and his prognosis. She states that she was told it was sent and received but nobody in the hospital system has been able to locate his chart. We will continue to try to get these records. Encouraged increased protein intake to help with wound healing. Waiting to hear from the [facility] to see if they can assist them financially for a new low air loss mattress. PLAN FROM 21 Mar 2024: I would like to try the VAC again. Patient and reluctant 2/2 problems with it in the past being so close to gluteal crease/perineum. For now, agree with continued Dakins. We talked about practicality of flap reconstruction and risks/benefits, and they're unsure of the benefit, especially if risks of failure/need for further wound care are so high and they're required to have strict and uncomfortable positioning restrictions. F/u and re-address in 2 weeks. 04 Apr 2024: would not like to do wound vac. Reports that it causes too many problems with leaking, ect. They're going to consider options for reconstruction, but are concerned about post-operative rehab and pressure offloading (practicality of not being able to be in a wheelchair). Mrs. Covington is going to call me and discuss further after she and her have discussed more. PLAN FROM 02 May 2024: After thorough discussion of options for potential reconstruction, and Mrs. Covington would like to defer reconstruction at this time and continue local wound care regimen. Follow-up in 2 weeks for wound check. Continue current regimen. Plan from 30 May 2024: Making improvements with dressings. Continue offloading and the Dakins WTD. O.K. for monthly wound checks (challenge for the family to come more often than this, and wound is open and healthy). Plan to continue to promote granulation (has granulated over bone with current regimen). PLAN FROM 27 June 2024: Wound check today demonstrated healthy granulating wound without any signs of fluid collection or other signs of infection. I believe that the Dakin's wet-to-dry is the best dressing at this point to maintain a healthy wound. They would like to follow-up in 1 month which I think is reasonable for just a wound check. Plan from 26 July 2024: Continue Dakin's wet-to-dry dressings twice daily. Patient's happy with that plan. Deferred debridement today as wound really healthy. Follow-up in 1 month for a wound check Plan from 29 August 2024: Continue saline wet-to-dry dressings twice daily. No signs of infection today in the wound. Patient and his happy with coming for wound checks every several weeks. Plan to follow-up in 5 weeks. They are not interested in reconstruction at this time, and he would be a poor candidate given his overall health status and inability to pressure offload.
== END 2024-09-26 23:59 | disposition home or self-care (01) ==
LOC: WC 14:27
PROVIDERS: PCP Family Medicine; Referring Provider Physician Assistant; Visit Provider Surgery Plastic and Reconstructive Surgery
DX: L89.314 Pressure ulcer of right buttock, stage 4 (principal); L89.214 Pressure ulcer of right hip, stage 4; Z87.891 Personal history of nicotine dependence; Z86.14 Personal history of Methicillin resistant Staphylococcus aureus infection; Z99.3 Dependence on wheelchair
CPT/HCPCS: 97803; 99213; G0463

== ENCOUNTER → 2024-09-28 | Outpatient (CLI) | payer MEDICARE, SELFPAY ==
[2024-09-28 16:40] LABS: Color, Urine Yellow (Yellow); Glucose, Dipstick Normal (Normal); Ketone-Dipstick Negative (Negative); Leukocyte Esterase-Dipstick 100 /ul (Negative); Nitrite-Dipstick Negative (Negative); Occult Blood-Urine 25 /ul (Negative); Protein-Dipstick 30 mg/dl (Negative); Specific Gravity, Urine 1.015 (1.002-1.030); Urine Bilirubin Dipstick Negative (Negative)
--- OUTSIDE RECORDS SUMMARY | 2024-09-28 22:39 | XMS RPT_ITS | CCD ---
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 Nathanael Cardona Primary Care Provider [phone] Biedenharn PA, PA Cristy Attending Provider [phone] Biedenharn PA, PA Cristy Referring Provider [phone] Biedenharn PA, PA Cristy Other Provider Dr. Popeye Messina Attending Provider Dr. Popeye Messina Referring Provider Dr. Popeye Messina Other Provider Dr. Popeye Messina Admit Provider Dr. Kari Romero Attending Provider Dr. Kari Romero Other Provider Ramiro LUBE MAN, LUBE MAN-C Kemi Adam Attending Provider [phone] Dr. Deshawn Mason Attending Provider Ramiro LUBE MAN, LUBE MAN-C Kemi Adam Other Provider Dr. Nathanael Cardona Referring Provider Dr. Nathanael Cardona Primary Care Provider Biedenharn PA, PA Cristy Attending Provider Biedenharn PA, PA Cristy Referring Provider Biedenharn PA, PA Cristy Other Provider Dr. Popeye Messina Attending Provider Dr. Popeye Messina Referring Provider [phone] Dr. Popeye Messina Other Provider Dr. Deshawn Mason Attending Provider Dr. Popeye Messina Admit Provider Dr. Kari Romero Attending Provider Dr. Kari Romero Other Provider Ramiro LUBE MAN, LUBE MAN-C Kemi E Attending Provider Ramiro LUBE MAN, LUBE MAN-C Kemi E Other Provider Dr. Nathanael Cardona Referring Provider Care Physician, No Primary Primary Care Provider Unavailable Care Physician, No Primary Referring Provider Un available Dr. Nathanael Cardona Primary Care Provider Biedenharn PA, PA Cristy Attending Provider Biedenharn PA, PA Cristy Referring Provider Biedenharn PA, PA Cristy Other Provider Dr. Nathanael Cardona Primary Care Provider Dr. Popeye Messina Admit Provider [phone] Popeye Messina Attending Provider [phone] Dr. Popeye Messina Referring Provider [phone] Dr. Popeye Messina Other Provider [phone] Kari Romero Other Provider Biedenharn, PA Cristy Referring Provider Ramiro LUBE MAN, LUBE MAN-C Kemi E Attending Provider Dr. Kari Romero Attending Provider Ramiro LUBE MAN, LUBE MAN-C Kemi E Referring Provider [phone] Dr. Nathanael Cardona Primary Care Provider Biedenharn, PA Cristy Referring Provider Ramiro LUBE MAN, LUBE MAN-C Kemi E Attending Provider [phone] Ramiro LUBE MAN, LUBE MAN-C Kemi E Other Provider Dr. Kari Romero Attending Provider Dr. Kari Romero Other Provider CARLOS Verma Referring Provider Ramiro LUBE MAN, LUBE MAN-C Kemi E Attending Provider [phone] Ramiro LUBE MAN, LUBE MAN-C Kemi E Other Provider Care Physician, No Primary Primary Care Provider Unavailable Care Physician, No Primary Referring Provider Un available Dr. Kari Romero Attending Provider Ramiro LUBE MAN, LUBE MAN-C Kemi E Attending Provider Ramiro LUBE MAN, LUBE MAN-C Kemi E Other Provider Care Physician, No Primary Primary Care Provider Unavailable Dr. Nathanael Cardona Primary Care Provider Dr. Chas Paiz Attending Provider Dr. Kari Romero Referring Provider Dr. Kari Romero Other Provider Dr. Kari Romero Admit Provider Dr. Nakita Arroyo Attending Provider Ramiro LUBE MAN, LUBE MAN-C Kemi E Attending Provider Ramiro LUBE MAN, LUBE MAN-C Kemi E Referring Provider Ramiro LUBE MAN, LUBE MAN-C Kemi E Other Provider Care Physician, No Primary Primary Care Provider Unavailable Ramiro LUBE MAN, LUBE MAN-C Kemi E Attending Provider Ramiro LUBE MAN, LUBE MAN-C Ekmi E Referring Provider Ramiro LUBE MAN, LUBE MAN-C Kemi E Other Provider Care Physician, No Primary Primary Care Provider Unavailable Dr. Nathanael Cardona Referring Provider Ramiro LUBE MAN, LUBE MAN-C Kemi E Attending Provider Ramiro LUBE MAN, LUBE MAN-C Kemi E Referring Provider [phone] Ramiro LUBE MAN, LUBE MAN-C Kemi E Other Provider Care Physician, No Primary Primary Care Provider Unavailable Dr. Kari Romero Attending Provider Ramiro LUBE MAN, LUBE MAN-C Kemi E Attending Provider [phone] Ramiro LUBE MAN, LUBE MAN-C Kemi E Referring Provider Ramiro LUBE MAN, LUBE MAN-C Kemi E Other Provider Care Physician, No Primary Primary Care Provider Unavailable Dr. Kari Romero Attending Provider Dr. Kari Romero Referring Provider Dr. Kari oRmero Other Provider Dr. Nathanael Cardona Primary Care Provider Dr. Kari Romero Admit Provider Dr. Nakita Arroyo Attending Provider Dr. Nathanael Cardona Referring Provider CARLOS Bearden Referring Provider Nathanael Cardona MD Primary Care Provider Ramiro LUBE MAN, LUBE MAN-C Kemi E Attending Provider [phone] Ramiro LUBE MAN, LUBE MAN-C Kemi E Referring Provider Ramiro LUBE MAN, LUBE MAN-C Kemi E Other Provider Dr. Nathanael Cardona Primary Care Provider Dr. Kari Romero Attending Provider Dr. Popeye Messina Attending Provider Dr. Popeye Messina Referring Provider Ramiro LUBE MAN, LUBE MAN-C Kemi E Attending Provider [phone] Ramiro LUBE MAN, LUBE MAN-C Kemi E Referring Provider [phone] Ramiro LUBE MAN, LUBE MAN-C Kemi E Other Provider Dr. Nathanael Cardona Primary Care Provider Ramiro LUBE MAN, LUBE MAN-C Kemi E Attending Provider Ramiro LUBE MAN, LUBE MAN-C Kemi E Referring Provider Ramiro LUBE MAN, LUBE MAN-C Kemi E Other Provider Dr. Nathanael Cardona Primary Care Provider Ramiro LUBE MAN, LUBE MAN-C Kemi E Other Provider Dr. Nathanael Cardona Primary Care Provider Dr. Popeye Messina Attending Provider Dr. Popeye Messina Referring Provider Ramiro LUBE MAN, LUBE MAN-C Kemi E Attending Provider Ramiro LUBE MAN, LUBE MAN-C Kemi E Referring Provider Ramiro LUBE MAN, LUBE MAN-C Kemi E Attending Provider Ramiro LUBE MAN, LUBE MAN-C Kemi E Referring Provider Ramiro LUBE MAN, LUBE MAN-C Kemi E Other Provider Dr. Nathanael Cardona Primary Care Provider Dr. Nathanael Cardona Referring Provider CARLOS Fuchs Attending Provider CARLOS Bearden Referring Provider Kristine GOOD, Zackery Gomes Unavailable Rikki Casas MD Unavailable Cristy Stoll Referring Provider Dr. Nathanael Cardona MD Primary Care Provider Un available Dr. Luca Nayak MD Attending Provider Dr. Luca Nayak MD Other Provider Ramiro LUBE MAN-C, Kemi E Attending Provider Ramiro LUBE MAN-C, Kemi E Referring Provider Ramiro LUBE MAN-C, Kemi E Other Provider Dr. Luca Nayak MD Referring Provider Dr. Nathanael Cardona MD Referring Provider Pam Quevedo MD, Dr. Wyatt Attending Provider Fiordaliza GOOD, Dr. Johnson Attending Provider Dr. Hebert Saavedra MD Emergency Provider Colin GOOD, Dr. Andrews Admit Provider Cloin GOOD, Dr. Andrews Attending Provider Colin GOOD, Dr. Andrews Other Provider Cristy Stoll Referring Provider Dr. Nathanael Cardona MD Primary Care Provider Un available Ramiro LUBE MAN-C, Kemi E Attending Provider Dr. Luca Nayak MD Attending Provider Dr. Luca Nayak MD Other Provider Colin GOOD, Dr. Andrews Referring Provider Dr. Nathanael Cardona MD Attending Provider Unava pooja GONZALEZ, Cristy Referring Provider Dr. Nathanael Cardona MD Primary Care Provider Un available Ramiro LUBE MAN-C, Kemi E Attending Provider Ramiro LUBE MAN-C, Kemi E Other Provider Dr. Luca Nayak MD Attending Provider Dr. Luca Nayak MD Referring Provider Dr. Nathanael Cardona MD Referring Provider Jazmynva Dr. Andre Cuadra DO Emergency Provider Yudith GOOD, Dr. Isha Gomes Admit Provider Yudith GOOD, Dr. Isha Gomes Referring Provider Yudith GOOD, Dr. Isha Gomes Other Provider Dr. Basilio Dill DO Attending Provider Rosamaria GOOD, Dr. Bhatt Other Provider Unavailable Ric GOOD, Dr. Felix Mistry Other Provider Dr. Miller Blank MD Attending Provider Unavaila ble Yudith GOOD, Dr. Isha Gomes Attending Provider Erasmo GOOD, Dr. Torres Primary Care Provider Un available Ramiro LUBE MAN-C, Kemi Adam Other Provider Nael GOOD, Dr. Segovia Attending Provider Nael GOOD, Dr. Segovia Referring Provider Suleiman GONZALEZ, Cristy Referring Provider Ramiro LUBE MAN-C, Kemi E Attending Provider Quentin GOOD, Dr. Ambrosio Attending Provider Steven GOOD, Dr. Pantoja Emergency Provider Erasmo GOOD, Dr. Torres Primary Care Provider Un available Nael GOOD, Dr. Segovia Attending Provider Nael GOOD, Dr. Segovia Referring Provider Nael GOOD, Dr. Segovia Other Provider Erasmo GOOD, Dr. Torres Referring Provider Unava pooja Quevedo MD, Dr. Wyatt Attending Provider Fiordaliza GOOD, Dr. Johnson Attending Provider Quentin GOOD, Dr. Ambrosio Emergency Provider Colin GOOD, Dr. Andrews Admit Provider Colin GOOD, Dr. Andrews Attending Provider Colin GOOD, Dr. Andrews Other Provider Colin GOOD, Dr. Andrews Referring Provider Cristy Stoll Referring Provider Erasmo GOOD, Dr. Torres Attending Provider Dr. Andre Lang DO Emergency Provider Yudith GOOD, Dr. Isha Gomes Admit Provider Yudith GOOD, Dr. Isha Gomes Referring Provider Yudith GOOD, Dr. Isha Gomes Other Provider Dr. Basilio Dill DO Attending Provider Rosamaria GOOD, Dr. Bhatt Other Provider Unavailable Ric GOOD, Dr. Felix Mistry Other Provider [phone] Rosamaria GOOD, Dr. Bhatt Attending Provider Unavaila stalin Zurita MD, Dr. Isha Gomes Attending Provider Quentin GOOD, Dr. Ambrosio Attending Provider Steven GOOD, Dr. Pantoja Attending Provider Steven GOOD, Dr. Pantoja Emergency Provider RIKKI CASAS Admitting Unavailable YESSENIA, RIKKI Attending Unavailable GUNNING, NATHANAEL Primary Care Unavailable NILESHKOCYNDI, RIKKI Attending Unavailable GUNNING, NATHANAEL Referring Unavailable GUNNING, NATHANAEL Primary Care Unavailable YESSENIA, RIKKI Attending Unavailable GUNNING, NATHANAEL Primary Care Unavailable Ramiro LUBE MAN, Kemi Adam Attending Unavailabl e Gunning, Nathanael Referring Unavailable Gunning, Nathanael Primary Care Unavailable Isha Zurita Consulting Unavailable Isha Zurita Referring Unavailable Isha Zurita Admitting Unavailable Basilio Dill Attending Unavailable Gunning, Nathanael Primary Care Unavailable Miller Blank Consulting Unavailable Felix Larios Consulting Unavailable Gunning, Nathanael Primary Care Unavailable Juliana Shaw Attending Unavailable Shaw, Juliana Admitting Unavailable Siska, Luca Attending Unavailable Bearden, Cristy Referring Unavailable Gunning, Nathanael Primary Care Unavailable Gunning, Nathanael Primary Care Unavailable Bearden, Cristy Referring Unavailable Siska, Luca Attending Unavailable Siska, Luca Attending Unavailable Siska, Luca Consulting Unavailable Siska, Luca Referring Unavailable Gunning, Nathanael Primary Care Unavailable Siska, Luca Consulting Unavailable Gunning, Nathanael Primary Care Unavailable Ramiro LUBE MAN, Kemi E Attending Unavailabl e Ramiro LUBE MAN, Kemi E Referring Unavailabl e Shaw, Juliana Attending Unavailable Shaw, Juliana Referring Unavailable Gunning, Nathanael Primary Care Unavailable Siska, Luca Attending Unavailable Gunning, Nathanael Primary Care Unavailable Bearden, Cristy Referring Unavailable Gunning, Nathanael Primary Care Unavailable Kit Harris Attending Unavailable Gunning, Nathanael Primary Care Unavailable Bhavesh Harrell Attending Unavailable Gunning, Nathanael Primary Care Unavailable Matthias Castillo Attending Unavailable Kit Harris Attending Unavailable Gunning, Nathanael Primary Care Unavailable Hebert Saavedra Attending Unavailable Gunning, Nathanael Primary Care Unavailable Gunning, Nathanael Attending Unavailable Gunning, Nathanael Referring Unavailable Gunning, Nathanael Primary Care Unavailable Siska, Luca Attending Unavailable Bearden, Cristy Referring Unavailable Gunning, Nathanael Primary Care Unavailable Siska, Luca Attending Unavailable Bearden, Cristy Referring Unavailable Gunning, Nathanael Primary Care Unavailable Siska, Luca Consulting Unavailable Gunning, Nathanael Primary Care Unavailable Ramiro LUBE MAN, Kemi E Attending Unavailabl e Ramiro LUBE MAN, Kemi E Referring Unavailabl e Yudith, Isha L Referring Unavailable Isha Zurita L Admitting Unavailable Miller Blank Attending Unavailable Gunning, Nathanael Primary Care Unavailable Yudith Isha L Consulting Unavailable Miller Blank Consulting Unavailable Siska, Luca Attending Unavailable Bearden, Cristy Referring Unavailable Gunning, Nahtanael Primary Care Unavailable Gunning, Nathanael Primary Care Unavailable Juliana Shaw Consulting Unavailable Juliana Shaw Attending Unavailable Juliana Shaw Admitting Unavailable Edmundo Quevedo Attending Unavailable Gunning, Nathanael Referring Unavailable Gunning, Nathanael Primary Care Unavailable Colin, Juliana Referring Unavailable Alex Mancera Attending Unavailable Gunning, Nathanael Primary Care Unavailable Siska, Luca Attending Unavailable Bearden, Cristy Referring Unavailable Siska, Luca Consulting Unavailable Gunning, Nathanael Primary Care Unavailable Ramiro LUBE MAN, Kemi E Attending Unavailabl e Ebarden, Cristy Referring Unavailable Ramiro LUBE MAN, Kemi E Consulting Unavailabl e Gunning, Nathanael Primary Care Unavailable Gunning, Nathanael Primary Care Unavailable Siska, Luca Attending Unavailable Siska, Luca Referring Unavailable Ramiro LUBE MAN, Kemi E Consulting Unavailabl e Nael Luca Attending Unavailable Gunning, Nathanael Primary Care Unavailable Siska, Luca Referring Unavailable Ramiro LUBE MAN, Kemi E Consulting Unavailabl e SisLuca wells Attending Unavailable Gunning, Nathanael Primary Care Unavailable Siska, Luca Referring Unavailable Ramiro LUBE MAN, Kemi E Consulting Unavailabl e Siska, Luca Attending Unavailable Bearden, Cristy Referring Unavailable Siska, Luca Consulting Unavailable Gunning, Nathanael Primary Care Unavailable Siska, Luca Attending Unavailable Siska, Luca Consulting Unavailable Siska, Luca Referring Unavailable Gunning, Nathanael Primary Care Unavailable Siska, Luca Consulting Unavailable Gunning, Nathanael Primary Care Unavailable Ramiro LUBE MAN, Kemi E Attending Unavailabl e Ramiro LUBE MAN, Kemi E Referring Unavailabl e Siska, Luca Consulting Unavailable Gunning, Nathanael Primary Care Unavailable Ramiro LUBE MAN, Kemi E Attending Unavailabl e Ramiro LUBE MAN, Kemi E Referring Unavailabl e Siska, Luca Attending Unavailable Siska, Luca Consulting Unavailable Gunning, Nathanael Primary Care Unavailable Siska, Luca Referring Unavailable White, Isha L Attending Unavailable Gunning, Nathanael Primary Care Unavailable FiordalizaAlex coto Attending Unavailable Gunning, Nathanael Primary Care Unavailable Quevedo, Edmundo Attending Unavailable Gunning, Nathanael Referring Unavailable Gunning, Nathanael Referring Unavailable Quevedo, Edmundo Attending Unavailable Gunning, Nathanael Primary Care Unavailable Ramiro LUBE MAN, Kemi E Attending Unavailabl e Bearden, Cristy Referring Unavailable Gunning, Nathanael Primary Care Unavailable Ramiro LUBE MAN, Kemi E Consulting Unavailabl e Siska, Luca Attending Unavailable Gunning, Nathanael Primary Care Unavailable Bearden, Cristy Referring Unavailable Bearden, Cristy Referring Unavailable Gunning, Nathanael Primary Care Unavailable Ramiro LUBE MAN, Kemi E Attending Unavailabl e Siska, Luca Attending Unavailable Bearden, Cristy Referring Unavailable Gunning, Nathanael Primary Care Unavailable Gunning, Nathanael Primary Care Unavailable Gunning, Nathanael Referring Unavailable Ramiro LUBE MAN, Kemi E Attending Unavailabl e Gunning, Nathanael Primary Care Unavailable Bearden, Cristy Referring Unavailable Ramiro LUBE MAN, Kemi E Attending Unavailabl e Gunning, Nathanael Primary Care Unavailable Bearden, Cristy Referring Unavailable Ramiro LUBE MAN, Kemi E Attending Unavailabl e Gunning, Nathanael Primary Care Unavailable Bearden, Cristy Referring Unavailable Ramiro LUBE MAN, Kemi E Attending Unavailabl e Gunning, Nathanael Attending Unavailable Gunning, Nathanael Referring Unavailable Gunning, Nathanael Primary Care Unavailable Siska, Luca Attending Unavailable Baerden, Cristy Referring Unavailable Siska, Luca Consulting Unavailable Gunning, Nathanael Primary Care Unavailable Allergies Allergy Classification Reported Allergen(s) Allergy Type Date of Onset Reaction(s) Facility (2 sources) Dust; Translations: [DUST] Propensity to adverse reactions (disorder) 9 [facility] (2 sources) Mold spore; Translations: [MOLD SPORES] Propensity to adverse reactions (disorder) 9 [facility] (20 sources) Pollen Allergy to substance 2 NEEDS FOLLOW-UP [facility] (20 sources) Environmental Allergies: Uncoded; Translations: [Environmental Allergies: Uncoded] Allergy to substance 2 NEEDS FOLLOW-UP [facility] (20 sources) house dust allergenic extract Drug Allergy 2 Other [facility] (11 sources) House dust mite Allergy to substance 9 Runny nose [facility] (11 sources) Pollen Allergy to substance 2 Runny nose [facility] (1 source) house dust allergenic extract Drug Allergy 5 [facility] (1 source) Pollen Drug allergy (disorder) 5 [facility] Repository Medications Current Medications Medication Drug Class(es) Dates Sig (Normalized) Sig (Original) baclofen 20 mg oral tablet (20 sources) gamma-Aminobutyric Acid-ergic Agonist Start: 08-07-2024 Start: 12-17-2017 End: 08-07-2024 Start: 12-17-2017 End: 08-07-2024 take 2 tablets by mouth three times daily Baclofen 10 MG tablet Discontinued 20 mg PO THREE TIMES A DAY December 17, 2017 12:00am August 07, 2024 6:00pm Start: 12-17-2017 Baclofen 10 MG tablet Active 15 mg PO THREE TIMES A DAY December 17, 2017 12:00am Start: 12-17-2017 take 15 mg by mouth three times daily Baclofen Active 15 MG PO THREE TIMES A DAY December 17, 2017 12:00am cetirizine hydrochloride 10 mg oral tablet (1 source) Histamine-1 Receptor Antagonist Start: 02-08-2022 take 1 tablet by mouth once daily Cetirizine (Allergy Relief (Cetirizine)) 10 mg Tablet Active 10 MG PO DAILY February 08, 2022 12:00am gabapentin 300 mg oral capsule (2 sources) Anti-epileptic Agent Start: 09-05-2022 take 300 mg by mouth twice daily Gabapentin Active 300 MG PO TWICE A DAY September 05, 2022 12:00am Start: 05-05-2022 take 1 capsule by mo [facility] twice daily Gabapentin (Neurontin) 300 mg capsule Active 300 MG PO TWICE A DAY May 05, 2022 12:00am icosapent ethyl 1000 mg oral capsule (20 sources) Start: 02-08-2022 Lactobac. Rhamnosus Gg-Inulin (cartmi) 12 billion cell -200 mg capsule (1 source) Start: 03-11-2022 take 1 capsule by mouth once daily Lactobac. Rhamnosus Gg-Inulin (cartmi) 12 billion cell -200 mg capsule Active 1 CAP PO DAILY March 11, 2022 12:00am levoFLOXacin 750 mg oral tablet (12 sources) Quinolone Antimicrobial Start: 08-01-2024 Start: 09-21-2023 End: 01-25-2024 levothyroxine sodium 0.125 mg oral tablet (20 sources) l-Thyroxine Start: 12-17-2017 End: 12-12-2023 meclizine hydrochloride 25 mg oral tablet (3 sources) Antiemetic Start: 08-07-2024 nitrofurantoin, macrocrystals 50 mg oral capsule (2 sources) Nitrofuran Antibacterial Start: 08-29-2024 omeprazole 40 mg delayed release oral capsule (4 sources) Proton Pump Inhibitor Start: 08-02-2024 sulfamethoxazole 800 mg / trimethoprim 160 mg oral tablet (1 source) Dihydrofolate Reductase Inhibitor Antibacterial, Sulfonamide Antimicrobial Start: 02-08-2022 take 1 tablet by mouth twice daily Sulfamethoxazo le-Trimethopri m Active 1 TABLET PO TWICE A DAY February 08, 2022 12:00am tamsulosin hydrochloride 0.4 mg oral capsule (20 sources) alpha-Adrenergic Daniel Start: 12-17-2017 take 1 capsule by mo uth every twenty-four hours in the morning tamsulosin (Flomax) 0.4 MG 24 hr capsule Take 0.4 mg by mouth in the morning and 0.4 mg in the evening. Active Completed/Discontinued Medications Medication Drug Class(es) Dates Sig (Normalized) Sig (Original) acetaminophen 500 mg oral tablet (20 sources) Start: 12-11-2023 End: 12-11-2023 1,000 mg, Oral, Once, On Thu12/11/23 at 1215, For 1 dose, Preprocedure, Administer 60 minutes prior to surgery. Start: 04-25-2022 Start: 04-25-2022 take 1300 mg by mout h every eight hours Acetaminophen Active 1300 MG PO Q8H April 25, 2022 1:00am Start: 02-08-2022 take 650 mg by mouth every eight hours Acetaminophen Active 650 MG PO Q8H February 08, 2022 12:00am acetaminophen 325 mg / oxyCO DONE hydrochloride 5 mg oral tablet (20 sources) Opioid Agonist Start: 08-27-2023 End: 06-03-2024 Start: 08-27-2023 End: 06-03-2024 Oxycodone-Acetaminophen (Per cocet) 5-325 mg tablet Discontinued 1 {tbl} PO TWICE A DAY as needed for pain (scale score 7-10) 01 01August 27, 2023 June 03, 2024 3:32pm 10 tabs (ten) Start: 04-30-2022 End: 09-05-2022 Start: 04-30-2022 End: 09-05-2022 Oxycodone-Acetaminophen (Per cocet) 5-325 mg tablet Discontinued 1 {tbl} PO 4 TIMES DAILY as needed for pain (scale score 7-10) 24 10April 30, 2022 September 05, 2022 8:51am amoxicillin 875 mg / clavula laura 125 mg oral tablet (20 sources) Penicillin-class Antibacterial Start: 06-12-2024 End: 07-29-2024 Start: 06-12-2024 End: 07-29-2024 Amoxicillin-Pot Clavulanate 875-125 mg tablet Discontinued 1 {tbl} PO TWICE A DAY 10 10June 12, 2024 12:00am July 29, 2024 10:08pm Start: 08-27-2023 End: 01-25-2024 Start: 08-27-2023 End: 01-25-2024 Amoxicillin-Pot Clavulanate (Augmentin) 500-125 mg tablet Discontinued 1 {tbl} PO THREE TIMES A DAY 26 01August 27, 2023 12:00am January 25, 2024 5:23pm Start: 04-13-2023 End: 08-14-2023 Start: 11-14-2022 End: 12-19-2022 Start: 11-14-2022 End: 12-19-2022 Amoxicillin-Pot Clavulanate 875-125 mg tablet Discontinued 1 {tbl} PO TWICE A DAY November 14, 2022 12:00am December 19, 2022 3:04pm Start: 11-14-2022 End: 12-19-2022 take 1 tablet by mouth twice daily Amoxicillin-Pot Clavulanate Discontinued 1 TABLET PO TWICE A DAY November 14, 2022 12:00am December 19, 2022 3:04pm Start: 07-22-2022 End: 09-05-2022 Start: 05-01-2022 End: 09-05-2022 Start: 05-01-2022 End: 09-05-2022 Amoxicillin-Pot Clavulanate (Augmentin) 500-125 mg tablet Discontinued 1 {tbl} PO THREE TIMES A DAY May 01, 2022 1:00am September 05, 2022 8:50am Start: 03-06-2022 End: 03-28-2022 Start: 03-06-2022 End: 03-28-2022 take 1 tablet by mouth every six hours at mealtime Amoxicillin-Pot Clavulanate 875-125 mg tablet Discontinued 1 {tbl} PO TWICE A DAY March 06, 2022 1:00am March 28, 2022 10:50am Take 1 tablet twice daily (every 12 hours) with food. Start: 03-06-2022 End: 03-28-2022 take 1 tablet by mouth every six hours at mealtime Amoxicillin-Pot Clavulanate Discontinued 1 TABLET PO TWICE A DAY March 06, 2022 1:00am March 28, 2022 10:50am Take 1 tablet twice daily (every 12 hours) with food. Start: 02-08-2022 take 875 mg by mouth every twelve hours Amoxicillin-Pot Clavulanate Active 875 MG PO Q12H February 08, 2022 12:00am Dhwmn-Pvjc-Okpne-Collag-Mv-M in (Edgar (With Collagen)) 7-7-1.5 gram Powder In Packet (20 sources) Start: 04-30-2022 End: 08-14-2023 Rbzpq-Mhot-Aciun-Collag-Mv-M in (Edgar (With Collagen)) 7-7-1.5 gram Powder In Packet Discontinued 1 NMA PO TWICE DAILY WITH MEALS 60 April 30, 2022 1:00am August 14, 2023 10:03am Start: 04-30-2022 Kvzqo-Pdbl-Lzx mc-Paedxl-Ze-Min (Edgar (With Collagen)) 7-7-1.5 gram Powder In Packet Active 1 PACKET PO TWICE DAILY WITH MEALS 60 April 30, 2022 1:00am Start: 04-30-2022 Iavpi-Pbvd-Lwj xq-Gcollw-Kf-Min (Edgar (With Collagen)) 7-7-1.5 gram Powder In Packet Active 1 PACKET PO TWICE DAILY WITH MEALS 60 April 30, 2022 12:00am azithromycin 250 mg oral tab let (9 sources) Macrolide Antimicrobial Start: 07-02-2023 End: 08-14-2023 cephalexin 500 mg oral capsu le (8 sources) Cephalosporin Antibacterial Start: 12-25-2023 End: 01-25-2024 ciprofloxacin 500 mg oral ta blet (9 sources) Quinolone Antimicrobial Start: 01-25-2024 End: 06-03-2024 Start: 03-28-2022 take 1 tablet by marielle th twice daily Ciprofloxacin Hcl (Cipro) 500 mg tablet Active 500 MG PO TWICE A DAY March 28, 2022 12:00am doxycycline hyclate 100 mg o ral capsule (20 sources) Tetracycline-class Drug Start: 09-21-2023 End: 01-25-2024 Start: 04-30-2022 End: 05-01-2022 esomeprazole 40 mg delayed release oral capsule (20 sources) Proton Pump Inhibitor Start: 12-17-2017 End: 07-29-2024 sodium hypochlorite 2.5 mg/ml topical solution (20 sources) Start: 04-30-2022 End: 06-03-2024 L.Acidoph,Saliva-B. Bif-S.Therm (Acidophilus Probiotic Blend) 175 mg capsule (12 sources) Start: 09-21-2023 End: 06-03-2024 take 1 capsule by mouth once daily L.Acidoph,Saliva-B. Bif-S.Therm (Acidophilus Probiotic Blend) 175 mg capsule Discontinued 1 NMA PO DAILY September 21, 2023 12:00am June 03, 2024 3:32pm Start: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 [facility] Serum or plasma alanine orozco otransferase (ALT) measurementOrdered By: Kit Harris on 08-07-2024 ALT [Catalytic activity/Vol] 21 U/L <47 [facility] Serum or plasma albumin marlyn urement (mass/volume)Ordered By: Kit Harris on 08-07-2024 Albumin [Mass/Vol] 3.1 g/dL Low 3.4-4.8 [facility] Serum or plasma albumin/glob ulin mass ratioOrdered By: Kit Harris on 08-07-2024 Albumin/Globulin [Mass ratio] 0.8 {ratio} Low 0.9-2.4 [facility] Serum or plasma alkaline marisol sphatase measurementOrdered By: Kit Harris on 08-07-2024 ALP [Catalytic activity/Vol] 109 U/L 40-129 [facility] Serum or plasma calcium marlyn urement (mass/volume)Ordered By: Kit Harris on 08-07-2024 Calcium [Mass/Vol] 9.2 mg/dL 7.6-11.0 [facility] Serum or plasma urea nitroge n measurement (mass/volume)Ordered By: Kit Harris on 08-07-2024 Urea nitrogen [Mass/Vol] 20 mg/dL High 4-19 [facility] Sodium levelOrdered By: Micheal Harris on 08-07-2024 Sodium [Moles/Vol] 142 mmol/L 133-145 [facility] Squamous epithelial cells de tection in urine sediment by light microscopyOrdered By: Kit Harris on 08-07-2024 Epithelial cells.squamous LM Ql (Urine sed) 0 SEEN /hpf 0-5 [facility] Total proteinOrdered By: Kenneth Harris on 08-07-2024 Protein [Mass/Vol] 6.8 g/dL 5.9-8.4 [facility] Troponin T.cardiac [Mass/vol ume] in Serum or Plasma by High sensitivity methodOrdered By: Kit Harris on 08-07-2024 Troponin T.cardiac High sensitivity method [Mass/Vol] 21 ng/L <22 [facility] Troponin T.cardiac High sensitivity method [Mass/Vol] 22 ng/L <22 [facility] Urinalysis, Completeon 08-07 WBC 0-5 SEEN Normal 0-5 [facility] Comment on above: Order Comment: LISA TER SPECIMEN Performed By: #### L 400.0001 ####[facility] [address] [place], [address] BACTERIA 0 SEEN Normal None Seen [facility] Comment on above: Order Comment: LISA TER SPECIMEN Performed By: #### L 400.0001 ####[facility] [address] [place], [address] EPI,SQUAMOUS 0 SEEN Normal 0-5 [facility] Comment on above: Order Comment: LISA TER SPECIMEN Performed By: #### L 400.0001 ####[facility] [address] [place], [address] Mucus Ql (Urine sed) 0 SEEN Normal [facility] Comment on above: Order Comment: LISA TER SPECIMEN Performed By: #### L 400.0001 ####[facility] [address] [place], [address] RBC 0 SEEN Normal 0-5 [facility] Comment on above: Order Comment: LISA TER SPECIMEN Performed By: #### L 400.0001 ####[facility] [address] [place], [address] Urine clarityOrdered By: Kenneth Harris on 08-07-2024 Clarity (U) Clear Clear [facility] Urine color determinationOrd ered By: Kit Harris on 08-07-2024 Color (U) Yellow Yellow [facility] Urine glucose detectionOrder ed By: Kit Harris on 08-07-2024 Glucose Ql (U) Normal mg/dl Normal [facility] Urine leukocyte esterase det ection by dipstickOrdered By: Kit Harris on 08-07-2024 Leukocyte esterase Test strip Ql (U) 25 /ul High Negative [facility] Urine pHOrdered By: Kit Harris on 08-07-2024 pH (U) 6.5 [pH] 5.0 - 8.0 [facility] Urine sediment bacteria coun t by microscopy (number/high power field)Ordered By: Kit Harris on 08-07-2024 Bacteria LM.HPF (Urine sed) [#/Area] 0 /[HPF] None Seen [facility] Urine specific gravity measu rementOrdered By: Kit Harris on 08-07-2024 Specific gravity (U) [Rel density] 1.010 1.002-1.030 [facility] Urine urobilinogen measureme ntOrdered By: Kit Harris on 08-07-2024 Urobilinogen Ql (U) Normal mg/dl Normal [facility] White blood cell (WBC) count Ordered By: Kit Harris on 08-07-2024 WBC (Bld) [#/Vol] 9.6 10*3/uL 4.4-11.0 [facility] White blood cell countOrdere d By: Kit Harris on 08-07-2024 White blood cell count 0-5 SEEN /hpf 0-5 [facility] Culture, Blood (WB)on 2024 CUB Blood cultures x2, from two different sites No growth in 5 days. Normal [facility] Comment on above: Performed By: #### M 200.1000 ####[facility] [address] [place], [place], [address] Performed By: #### M 200.1000, L300.4310, L300.3900, L503.6005, L500.4050, L100.0100 ####[facility] [address] [place], [address] Absolute lymphocyte countOrd ered By: Hebertgerman Saavedra on 08-02-2024 Lymphocytes Auto (Unsp spec) [#/Vol] 1.13 10*3/uL 0.83-4.51 [facility] Absolute neutrophil countOrd ered By: Hebert Saavedra on 08-02-2024 Neutrophils (Bld) [#/Vol] 4.7 10*3/uL 2.0-7.7 [facility] Anion gap in Serum or Plasma Ordered By: [facility] on 08-02-2024 Anion gap [Moles/Vol] 10 mmol/L 5-[address] [facility] Automated lymphocyte count a s percentage of total leukocytesOrdered By: Hebert Saavedra on 08-02-2024 Lymphocytes/100 WBC Auto (Unsp spec) 15.1 % Low 19-41 [facility] BUN/creatinine ratioOrdered By: Hebert Saavedra on 08-02-2024 Urea nitrogen/Creatinine [Mass ratio] 21.3 mg/mg High 10-20 [facility] Base excess Calc (BldV) [Mol es/Vol]Ordered By: Hebert Saavedra on 08-02-2024 Venous Blood Base Excess 10 mmol/L High -1.0-3.5 [facility] Basic Metabolic Profile (BMP )on 08-02-2024 BUN/CRE 21.3 RATIO High 10- [facility] Comment on above: Performed By: #### L 500.2500, L100.0100 ####[facility] [address] [place], [address] Calcium [Mass/Vol] 8.9 mg/dL Normal 7.6-11.0 [facility] Comment on above: Performed By: #### L 500.2500, L100.0100 ####[facility] [address] [place], [address] Chloride [Moles/Vol] 113 mmol/L High 98-108 [facility] Comment on above: Performed By: #### L 500.2500, L100.0100 ####[facility] [address] [place], [address] CO2 [Moles/Vol] 21.3 mmol/L Normal 21.0-32.0 [facility] Comment on above: Performed By: #### L 500.2500, L100.0100 ####[facility] [address] [place], [address] Creatinine [Mass/Vol] 1.10 mg/dL Normal 0.70-1.[address] [facility] Comment on above: Performed By: #### L 500.2500, L100.0100 ####[facility] [address] [place], [address] ECRCL 73.63 ml/min Normal 50-250 [facility] Comment on above: Performed By: #### L 500.2500, L100.0100 ####[facility] [address] [place], [address] GAP 10 Normal 5-15 [facility] Comment on above: Performed By: #### L 500.2500, L100.0100 ####[facility] [address] [place], [address] GFR/1.73 sq M.predicted among non-blacks MDRD (S/P/Bld) [Vol rate/Area] 74 mL/min/{1.73_m2} Normal >60 [facility] Comment on above: Result Comment: mL/m in/1.73m2 CKD-EPI Creatinine Equation (2020) Performed By: #### L 500.2500, L100.0100 ####[facility] [address] [place], [address] Glucose [Mass/Vol] 103 mg/dL High 70-99 [facility] Comment on above: Performed By: #### L 500.2500, L100.0100 ####[facility] [address] [place], [address] Potassium [Moles/Vol] 3.6 mmol/L Normal 3.3-5.[address] [facility] Comment on above: Performed By: #### L 500.2500, L100.0100 ####[facility] [address] [place], [address] Sodium [Moles/Vol] 144 mmol/L Normal 133-145 [facility] Comment on above: Performed By: #### L 500.2500, L100.0100 ####[facility] [address] [place], [address] Urea nitrogen [Mass/Vol] 23 mg/dL High 4-19 [facility] Comment on above: Performed By: #### L 500.2500, L100.0100 ####[facility] [address] [place], [address] BUN Normal -19 [facility] Comment on above: Result Comment: Canc elled via OM: Order cancelled - Patient discharged Performed By: #### L 100.0100, L500.2500 ####[facility] [address] [place], [address] BUN/CRE Normal 10-20 [facility] Comment on above: Result Comment: Canc elled via OM: Order cancelled - Patient discharged Performed By: #### L 100.0100, L500.2500 ####[facility] [address] [place], [address] Calcium Normal 7.6-11.0 [facility] Comment on above: Result Comment: Canc elled via OM: Order cancelled - Patient discharged Performed By: #### L 100.0100, L500.2500 ####[facility] [address] [place], [address] CL Normal 98-108 [facility] Comment on above: Result Comment: Canc elled via OM: Order cancelled - Patient discharged Performed By: #### L 100.0100, L500.2500 ####[facility] [address] [place], [address] CO2 Normal 21.0-32.0 [facility] Comment on above: Result Comment: Canc elled via OM: Order cancelled - Patient discharged Performed By: #### L 100.0100, L500.2500 ####[facility] [address] [place], [address] CREAT,SERUM Normal 0.70-1.20 [facility] Comment on above: Result Comment: Canc elled via OM: Order cancelled - Patient discharged Performed By: #### L 100.0100, L500.2500 ####[facility] [address] [place], [address] eGFR Normal >60 [facility] Comment on above: Result Comment: Canc elled via OM: Order cancelled - Patient discharged Performed By: #### L 100.0100, L500.2500 ####[facility] [address] [place], [address] GAP Normal 5-15 [facility] Comment on above: Result Comment: Canc elled via OM: Order cancelled - Patient discharged Performed By: #### L 100.0100, L500.2500 ####[facility] [address] [place], [address] GLU Normal 70-99 [facility] Comment on above: Result Comment: Canc elled via OM: Order cancelled - Patient discharged Performed By: #### L 100.0100, L500.2500 ####[facility] [address] [place], [address] Potassium Normal 3.3-5.1 [facility] Comment on above: Result Comment: Canc elled via OM: Order cancelled - Patient discharged Performed By: #### L 100.0100, L500.2500 ####[facility] [address] [place], [address] Basic Metabolic Profile (BMP) Normal 133-145 [facility] Comment on above: Result Comment: Canc elled via OM: Order cancelled - Patient discharged Performed By: #### L 100.0100, L500.2500 ####[facility] [address] [place], [address] Basophil percentageOrdered B y: Hebert Saavedra on 08-02-2024 Basophils/100 WBC (Bld) 0.4 % 0-1 [facility] Bilirubin Test strip Ql (U)O rdered By: Hebert Saavedra on 08-02-2024 Bilirubin Ql (U) Negative Negative [facility] CBC W/Diff, Automatedon Absolute Lymph 1.13 X10 3/uL Normal 0.83-4.51 [facility] Comment on above: Performed By: #### L 500.2500, L100.0100 ####[facility] [address] [place], [address] Absolute Neut 4.7 X10 3/uL Normal 2.0-7.7 [facility] Comment on above: Performed By: #### L 500.2500, L100.0100 ####[facility] [address] [place], [address] Basophils/100 WBC (Bld) 0.4 % Normal 0-1 [facility] Comment on above: Performed By: #### L 500.2500, L100.0100 ####[facility] [address] [place], [address] Eosinophils/100 WBC (Bld) 6.6 % High 0-5 [facility] Comment on above: Performed By: #### L 500.2500, L100.0100 ####[facility] [address] [place], [address] Erythrocyte distribution width (RBC) [Ratio] 17.7 % High 11.6-14.6 [facility] Comment on above: Performed By: #### L 500.2500, L100.0100 ####[facility] [address] [place], [address] Hematocrit (Bld) [Volume fraction] 33.7 % Low 40-54 [facility] Comment on above: Performed By: #### L 500.2500, L100.0100 ####[facility] [address] [place], [address] Hemoglobin (Bld) [Mass/Vol] 10.8 g/dL Low 13.0-16.5 [facility] Comment on above: Performed By: #### L 500.2500, L100.0100 ####[facility] [address] [place], [address] IG% 0.500 Normal 0.0-0.9 [facility] Comment on above: Result Comment: IG% - Immature Granulocytes (promyelocytes, myelocytes andmetamyelocytes) > 1% indicates that a LEFT SHIFT is Present. Performed By: #### L 500.2500, L100.0100 ####[facility] [address] [place], [address] Lymphocytes/100 WBC (Bld) 15.1 % Low 19-41 [facility] Comment on above: Performed By: #### L 500.2500, L100.0100 ####[facility] [address] [place], [address] MCH (RBC) [Entitic mass] 28.6 pg Normal 27.0-32.0 [facility] Comment on above: Performed By: #### L 500.2500, L100.0100 ####[facility] [address] [place], [address] MCHC (RBC) [Mass/Vol] 32.0 g/dL Normal 32-[address] [facility] Comment on above: Performed By: #### L 500.2500, L100.0100 ####[facility] [address] [place], [address] MCV (RBC) [Entitic vol] 89.4 fL Normal 80-94 [facility] Comment on above: Performed By: #### L 500.2500, L100.0100 ####[facility] [address] [place], [address] Monocytes/100 WBC (Bld) 15.1 % High 0-10 [facility] Comment on above: Performed By: #### L 500.2500, L100.0100 ####[facility] [address] [place], [address] Neutrophils/100 WBC (Bld) 62.3 % Normal 47-70 [facility] Comment on above: Performed By: #### L 500.2500, L100.0100 ####[facility] [address] [place], [address] Nucleated RBC (Bld) [#/Vol] 0 10*3/uL Normal 0-5 [facility] Comment on above: Performed By: #### L 500.2500, L100.0100 ####[facility] [address] [place], [address] Platelet mean volume (Bld) [Entitic vol] 9.8 fL Normal 6.2-12.0 [facility] Comment on above: Performed By: #### L 500.2500, L100.0100 ####[facility] [address] [place], [address] Platelets (Bld) [#/Vol] 237 10*3/uL Normal 150-450 [facility] Comment on above: Performed By: #### L 500.2500, L100.0100 ####[facility] [address] [place], [address] RBC (Bld) [#/Vol] 3.77 10*6/uL Low 4.6-6.2 [facility] Comment on above: Performed By: #### L 500.2500, L100.0100 ####[facility] [address] [place], [address] RDW SD 57.7 fl High 35.1-43.9 [facility] Comment on above: Performed By: #### L 500.2500, L100.0100 ####[facility] [address] [place], [address] WBC (Bld) [#/Vol] 7.5 10*3/uL Normal 4.4-11.0 [facility] Comment on above: Performed By: #### L 500.2500, L100.0100 ####[facility] [address] [place], [address] Absolute Neut Normal 2.0-7.7 [facility] Comment on above: Result Comment: Canc elled via OM: Order cancelled - Patient discharged Performed By: #### L 100.0100, L500.2500 ####[facility] [address] [place], [address] HCT Normal 40-54 [facility] Comment on above: Result Comment: Canc elled via OM: Order cancelled - Patient discharged Performed By: #### L 100.0100, L500.2500 ####[facility] [address] [place], [address] HGB Normal 13.0-16.5 [facility] Comment on above: Result Comment: Canc elled via OM: Order cancelled - Patient discharged Performed By: #### L 100.0100, L500.2500 ####[facility] [address] [place], [address] MCH Normal 27.0-32.0 [facility] Comment on above: Result Comment: Canc elled via OM: Order cancelled - Patient discharged Performed By: #### L 100.0100, L500.2500 ####[facility] [address] [place], [address] MCHC Normal 32-36 [facility] Comment on above: Result Comment: Canc elled via OM: Order cancelled - Patient discharged Performed By: #### L 100.0100, L500.2500 ####[facility] [address] [place], [address] MCV Normal 80-94 [facility] Comment on above: Result Comment: Canc elled via OM: Order cancelled - Patient discharged Performed By: #### L 100.0100, L500.2500 ####[facility] [address] [place], [address] NEUT% Normal 47-70 [facility] Comment on above: Result Comment: Canc elled via OM: Order cancelled - Patient discharged Performed By: #### L 100.0100, L500.2500 ####[facility] [address] [place], [address] PLT Normal 150-450 [facility] Comment on above: Result Comment: Canc elled via OM: Order cancelled - Patient discharged Performed By: #### L 100.0100, L500.2500 ####[facility] [address] [place], [address] RBC Normal 4.6-6.2 [facility] Comment on above: Result Comment: Canc elled via OM: Order cancelled - Patient discharged Performed By: #### L 100.0100, L500.2500 ####[facility] [address] [place], [address] RDW CV Normal 11.6-14.6 [facility] Comment on above: Result Comment: Canc elled via OM: Order cancelled - Patient discharged Performed By: #### L 100.0100, L500.2500 ####[facility] [address] [place], [address] RDW SD Normal 35.1-43.9 [facility] Comment on above: Result Comment: Canc elled via OM: Order cancelled - Patient discharged Performed By: #### L 100.0100, L500.2500 ####[facility] [address] [place], [address] WBC Normal 4.4-11.0 [facility] Comment on above: Result Comment: Canc elled via OM: Order cancelled - Patient discharged Performed By: #### L 100.0100, L500.2500 ####[facility] [address] [place], [address] CO2 (BldV) [Moles/Vol]Ordere d By: Hebert Saavedra on 08-02-2024 CO2 [Moles/Vol] 33 mmol/L 23-33 [facility] CO2 (BldV) [Partial pressure ]Ordered By: Hebert Saavedra on 08-02-2024 Bed Mix Venous Bld PCO2 at Pat Temp 37.5 mmHg Low 41-51 [facility] Carbon dioxide, total [Moles /volume] in Central venous bloodOrdered By: Hebert Saavedra on 08-02-2024 CO2 [Moles/Vol] 21.3 mmol/L 21.0-32.0 [facility] Chest PA and Lateralon 08-02 Chest PA and Lateral Normal [facility] Chloride assayOrdered By: Adri Saavedra on 08-02-2024 Chloride [Moles/Vol] 113 mmol/L High 98-108 [facility] Determination of fraction of inspired oxygenOrdered By: Hebert Saavedra on 08-02-2024 Blood Gas Oxygen Percent 21.0 [facility] Emergency Department Summary on 08-02-2024 Emergency Department Summary Normal [facility] Eosinophil percentageOrdered By: Hebert Saavedra on 08-02-2024 Eosinophils/100 WBC (Bld) 6.6 % High 0-5 [facility] Epithelial cells.squamous LM Ql (Urine sed)Ordered By: Hebert Saavedra on 08-02-2024 Epithelial cells.squamous LM.HPF (Urine sed) [#/Area] 0 /[HPF] 0-5 [facility] Erythrocyte distribution wid th (RBC) [Ratio]Ordered By: Hebert Saavedra on 08-02-2024 Erythrocyte distribution width (RBC) [Entitic vol] 57.7 fL High 35.1-43.9 [facility] Erythrocyte distribution wid th ratioOrdered By: Hebert Saavedra on 08-02-2024 Erythrocyte distribution width (RBC) [Ratio] 17.7 % High 11.6-14.6 [facility] Erythrocyte distribution wid th standard deviationOrdered By: Hebertgerman Saavedra on 08-02-2024 Erythrocyte distribution width (RBC) [Ratio] 57.7 fl High 35.1-43.9 [facility] Estimation of creatinine moon aranceOrdered By: Hebert Saavedra on 08-02-2024 Estimated Creatinine Clearance Calc 73.63 ml/min 50-250 [facility] GFR/1.73 sq M.predicted elias g non-blacks MDRD (S/P/Bld) [Vol rate/Area]Ordered By: Hebert Saavedra on 08-02-2024 Estimated GFR (MDRD) Non-Af Amer 74 >60 [facility] Comment on above: mL/min/1.73m2 CKD-EP I Creatinine Equation (2020) Glomerular filtration rate ( GFR) estimation/1.73 sq m using serum, plasma, or whole bOrdered By: Hebert Saavedra on 08-02-2024 GFR/1.73 sq M.predicted among non-blacks MDRD (S/P/Bld) [Vol rate/Area] 74 mL/min/{1.73_m2} >60 [facility] Comment on above: mL/min/1.73m2 CKD-EP I Creatinine Equation (2020) Glucose Ql (U)Ordered By: Adri Saavedra on 08-02-2024 Urine Glucose (UA) Normal mg/dl Normal [facility] Hematocrit Auto (Bld) [Volum e fraction]Ordered By: Hebert Saavedra on 08-02-2024 Hematocrit (Bld) [Volume fraction] 33.7 % Low 40-54 [facility] Hemoglobin measurementOrdere d By: Hebert Saavedra on 08-02-2024 Hemoglobin (Bld) [Mass/Vol] 10.8 g/dL Low 13.0-16.5 [facility] Immature granulocytes/100 WB C Auto (Bld)Ordered By: Hebert Saavedra on 08-02-2024 Immature granulocytes/100 WBC (Bld) 0.500 % 0.0-0.9 [facility] Comment on above: IG% - Immature Granu locytes (promyelocytes, myelocytes and metamyelocytes) > 1% indicates that a LEFT SHIFT is Present. Ketones Test strip Ql (U)Ord ered By: Hebert Saavedra on 08-02-2024 Ketones Ql (U) Negative Negative [facility] Lymphocytes Auto (Unsp spec) [#/Vol]Ordered By: Hebert Saavedra on 08-02-2024 Lymphocytes (Bld) [#/Vol] 1.13 10*3/uL 0.83-4.51 [facility] Lymphocytes/100 WBC Auto (Un sp spec)Ordered By: Hebert Saavedra on 08-02-2024 Lymphocytes/100 WBC (Bld) 15.1 % Low 19-41 [facility] MCV (mean corpuscular volume ) determinationOrdered By: Hebert Saavedra on 08-02-2024 MCV (RBC) [Entitic vol] 89.4 fL 80-94 [facility] Mean corpuscular hemoglobin (MCH) determinationOrdered By: Hebert Saavedra on 08-02-2024 MCH (RBC) [Entitic mass] 28.6 pg 27.0-32.0 [facility] Mean corpuscular hemoglobin concentration (MCHC) determinationOrdered By: Hebert Saavedra on 08-02-2024 MCHC (RBC) [Mass/Vol] 32.0 g/dL 32-[address] [facility] Mean platelet volume determi nationOrdered By: Hebert Saavedra on 08-02-2024 Platelet mean volume (Bld) [Entitic vol] 9.8 fL 6.2-12.0 [facility] Microscopic analysis of urin e for red blood cells (RBC)Ordered By: Hebert Saavedra on 08-02-2024 Microscopic analysis of urine for red blood cells (RBC) 0 SEEN /hpf 0-5 [facility] Urine RBC 0 SEEN /hpf 0-5 [facility] Monocyte percentageOrdered B y: Hebert Saavedra on 08-02-2024 Monocytes/100 WBC (Bld) 15.1 % High 0-10 [facility] Mucus LM Ql (Urine sed)Order ed By: Hebert Saavedra on 08-02-2024 Mucus Ql (Urine sed) 0 SEEN /hpf [facility] Neutrophil percentageOrdered By: Hebert Saavedra on 08-02-2024 Neutrophils/100 WBC (Bld) 62.3 % 47-70 [facility] Nitrite Test strip Ql (U)Ord ered By: Hebert Saavedra on 08-02-2024 Nitrite Ql (U) Negative Negative [facility] No Panel InformationOrdered By: Hebert Saavedra on 08-02-2024 Blood Gas Sample Site Not entered [facility] Blood Gas Specimen Type LUZ ELENA [facility] Oxygen Delivery Device Not entered [facility] LUZ ELENA [facility] Not entered [facility] Nucleated red blood cell per centageOrdered By: Hebert Saavedra on 08-02-2024 Nucleated RBC/100 WBC (Bld) [Ratio] 0 % 0-5 [facility] Oxygen (BldV) [Partial press ure]Ordered By: Hebert Saavedra on 08-02-2024 Venous Blood Partial Pressure O2 81 mmHg High 25-40 [facility] Platelet countOrdered By: Adri Saavedra on 08-02-2024 Platelets (Bld) [#/Vol] 237 10*3/uL 150-450 [facility] Potassium (Unsp spec) [Mass/ Vol]Ordered By: Hebert Saavedra on 08-02-2024 Potassium [Moles/Vol] 3.6 mmol/L 3.3-5.[address] [facility] Potassium measurement (mass/ volume)Ordered By: Hebert Saavedra on 08-02-2024 Potassium (Unsp spec) [Mass/Vol] 3.6 mmol/L 3.3-5.1 [facility] Protein Test strip Ql (U)Ord ered By: Hebert Saavedra on 08-02-2024 Protein Ql (U) 15 mg/dl High Negative [facility] RBC Auto (Bld) [#/Vol]Ordere d By: Hebert Saavedra on 08-02-2024 RBC (Bld) [#/Vol] 3.77 10*6/uL Low 4.6-6.2 [facility] Serum creatinine measurement (mass/volume)Ordered By: Hebert Saavedra on 08-02-2024 Creatinine [Mass/Vol] 1.10 mg/dL 0.70-1.[address] [facility] Serum glucose measurement (m ass/volume)Ordered By: Hebertgerman Saavedra on 08-02-2024 Glucose [Mass/Vol] 103 mg/dL High 70-99 [facility] Serum or plasma calcium marlyn urement (mass/volume)Ordered By: Hebert Saavedra on 08-02-2024 Calcium [Mass/Vol] 8.9 mg/dL 7.6-11.0 [facility] Serum or plasma urea nitroge n measurement (mass/volume)Ordered By: Hebert Saavedra on 08-02-2024 Urea nitrogen [Mass/Vol] 23 mg/dL High 4-19 [facility] Sodium levelOrdered By: Hebertgerman Saavedra on 08-02-2024 Sodium [Moles/Vol] 144 mmol/L 133-145 [facility] Squamous epithelial cells de tection in urine sediment by light microscopyOrdered By: Hebertgerman Saavedra on 08-02-2024 Epithelial cells.squamous LM Ql (Urine sed) 0 SEEN /hpf 0-5 [facility] Urinalysis, Completeon 08-02 WBC 0-5 SEEN Normal 0-5 [facility] Comment on above: Order Comment: CLEAN CATCH Performed By: #### L 400.0001 ####[facility] [address] [place], [place], [id number] BACTERIA 0 SEEN Normal None Seen [facility] Comment on above: Order Comment: CLEAN CATCH Performed By: #### L 400.0001 ####[facility] [address] [place], [place], [id number] EPI,SQUAMOUS 0 SEEN Normal 0-5 [facility] Comment on above: Order Comment: CLEAN CATCH Performed By: #### L 400.0001 ####[facility] [address] [place], [place], [id number] Mucus Ql (Urine sed) 0 SEEN Normal [facility] Comment on above: Order Comment: CLEAN CATCH Performed By: #### L 400.0001 ####[facility] [address] [place], [address] RBC 0 SEEN Normal 0-5 [facility] Comment on above: Order Comment: CLEAN CATCH Performed By: #### L 400.0001 ####[facility] [address] [place], [place], [id number] Urine Cultureon 08-02-2024 URC Normal [facility] Comment on above: Performed By: #### L 400.0001, M100.2200 ####[facility] [address] [place], [place], [id number] Urine blood detectionOrdered By: Hebert Saavedra on 08-02-2024 Urine Occult Blood 10 /ul High Negative [facility] Urine clarityOrdered By: Hebert Saavedra on 08-02-2024 Clarity (U) Clear Clear [facility] Urine color determinationOrd ered By: Hebert Saavedra on 08-02-2024 Color (U) Yellow Yellow [facility] Urine glucose detectionOrder ed By: Hebert Saavedra on 08-02-2024 Glucose Ql (U) Normal mg/dl Normal [facility] Urine leukocyte esterase det ection by dipstickOrdered By: Hebert Saavedra on 08-02-2024 Leukocyte esterase Test strip Ql (U) 500 /ul High Negative [facility] Urine pHOrdered By: Hebert porter on 08-02-2024 pH (U) 7.0 [pH] 5.0 - 8.0 [facility] Urine sediment bacteria coun t by microscopy (number/high power field)Ordered By: Hebert Saavedra on 08-02-2024 Bacteria LM.HPF (Urine sed) [#/Area] 0 /[HPF] None Seen [facility] Urine specific gravity measu rementOrdered By: Hebert Saavedra on 08-02-2024 Specific gravity (U) [Rel density] 1.005 1.002-1.030 [facility] Urine urobilinogen measureme ntOrdered By: Hebert Booneo on 08-02-2024 Urobilinogen Ql (U) Normal mg/dl Normal [facility] Urobilinogen Ql (U)Ordered B y: Hebert Saavedra on 08-02-2024 Urine Urobilinogen Normal mg/dl Normal [facility] Venous Blood Gason 5 Blood Gas Type LUZ ELENA Normal [facility] Comment on above: Performed By: #### L 0.0810 ####[facility] [address] [place], [address] CO2 [Moles/Vol] 33 mmol/L Normal 23-33 [facility] Comment on above: Performed By: #### L 0.0810 ####[facility] [address] [place], [address] FI02 21.0 Normal [facility] Comment on above: Performed By: #### L 9000.0810 ####[facility] [address] [place], [address] HCO3 (Bld) [Moles/Vol] 32 mmol/L High 22-26 [facility] Comment on above: Performed By: #### L 9000.0810 ####[facility] [address] [place], [address] O2 Delivery Dev Not entered Normal [facility] Comment on above: Performed By: #### L 0.0810 ####[facility] [address] [place], [address] SITE Not entered Normal [facility] Comment on above: Performed By: #### L 9000.0810 ####[facility] [address] [place], [address] VBG BE 10 mmol/L High -1.0-3.5 [facility] Comment on above: Performed By: #### L 0.0810 ####[facility] [address] [place], [place], [address] VBG pCO2 37.5 mmHg Low 41-51 [facility] Comment on above: Performed By: #### L 9000.0810 ####[facility] [address] [place], [place], [address] VBG pH 7.54 High 7.32-7.42 [facility] Comment on above: Performed By: #### L 9000.0810 ####[facility] [address] [place], [place], [address] VBG PO2 81 mmHg High 25-40 [facility] Comment on above: Performed By: #### L 9000.0810 ####[facility] [address] [place], [place], [phone] VBG SO2 97 High 50-70 [facility] Comment on above: Performed By: #### L 9000.0810 ####[facility] [address] [place], [place], [id number] Venous blood base excess gregoria surementOrdered By: Hebert Saavedra on 08-02-2024 Base excess Calc (BldV) [Moles/Vol] 10 mmol/L High -1.0-3.5 [facility] Venous blood bicarbonate gregoria surementOrdered By: Hebertgerman Saavedra on 08-02-2024 HCO3 (Bld) [Moles/Vol] 32 mmol/L High 22-26 [facility] Venous blood oxygen saturati on measurementOrdered By: Hebert Saavedra on 08-02-2024 Oxygen saturation in Blood 97 % High 50-70 [facility] Venous blood pH measurementO rdered By: Hebertgerman Saavedra on 08-02-2024 pH (BldV) 7.54 [pH] High 7.32-7.42 [facility] Venous blood partial pressur e of carbon dioxide measurementOrdered By: Hebertgerman Saavedra on 08-02-2024 CO2 (BldV) [Partial pressure] 37.5 mm[Hg] Low 41-51 [facility] Venous blood partial pressur e of oxygen measurementOrdered By: Hebert Saavedra on 08-02-2024 Oxygen (BldV) [Partial pressure] 81 mm[Hg] High 25-40 [facility] White blood cell (WBC) count Ordered By: Hebert Saavedra on 08-02-2024 WBC (Bld) [#/Vol] 7.5 10*3/uL 4.4-11.0 [facility] White blood cell countOrdere d By: Hebert Saavedra on 08-02-2024 Urine WBC 0-5 SEEN /hpf 0-5 [facility] White blood cell count 0-5 SEEN /hpf 0-5 [facility] pH (BldV)Ordered By: Hebert muniz on 08-02-2024 Venous Blood pH 7.54 High 7.32-7.42 [facility] Absolute lymphocyte countOrd ered By: Miller Blank on 08-01-2024 Lymphocytes Auto (Unsp spec) [#/Vol] 1.14 10*3/uL 0.83-4.51 [facility] Absolute neutrophil countOrd ered By: Miller Blank on 08-01-2024 Neutrophils (Bld) [#/Vol] 6.1 10*3/uL 2.0-7.7 [facility] Ammoniaon 08-01-2024 Ammonia (P) [Moles/Vol] 43.8 umol/L Normal 16-60 [facility] Comment on above: Performed By: #### L 503.5510 ####[facility] [address] [place], [place], [id number] Anion gap in Serum or Plasma Ordered By: Miller Blank on 08-01-2024 Anion gap [Moles/Vol] 10 mmol/L 5-[address] [facility] Automated lymphocyte count a s percentage of total leukocytesOrdered By: Miller Blank on 08-01-2024 Lymphocytes/100 WBC Auto (Unsp spec) 13.2 % Low 19-41 [facility] BUN/creatinine ratioOrdered By: Miller Blank on 08-01-2024 Urea nitrogen/Creatinine [Mass ratio] 12.9 mg/mg 10-20 [facility] Basic Metabolic Profile (BMP )on 08-01-2024 BUN/CRE 12.9 RATIO Normal 10-20 [facility] Comment on above: Performed By: #### L 100.0100, L500.2500 ####[facility] [address] [place], [address] Calcium [Mass/Vol] 8.7 mg/dL Normal 7.6-11.0 [facility] Comment on above: Performed By: #### L 100.0100, L500.2500 ####[facility] [address] [place], [address] Chloride [Moles/Vol] 113 mmol/L High 98-108 [facility] Comment on above: Performed By: #### L 100.0100, L500.2500 ####[facility] [address] [place], [address] CO2 [Moles/Vol] 20.3 mmol/L Low 21.0-32.0 [facility] Comment on above: Performed By: #### L 100.0100, L500.2500 ####[facility] [address] [place], [address] Creatinine [Mass/Vol] 1.06 mg/dL Normal 0.70-1.[address] [facility] Comment on above: Performed By: #### L 100.0100, L500.2500 ####[facility] [address] [place], [address] ECRCL 73.88 ml/min Normal 50-250 [facility] Comment on above: Performed By: #### L 100.0100, L500.2500 ####[facility] [address] [place], [address] GAP 10 Normal 5-15 [facility] Comment on above: Performed By: #### L 100.0100, L500.2500 ####[facility] [address] [place], [address] GFR/1.73 sq M.predicted among non-blacks MDRD (S/P/Bld) [Vol rate/Area] 77 mL/min/{1.73_m2} Normal >60 [facility] Comment on above: Result Comment: mL/m in/1.73m2 CKD-EPI Creatinine Equation (2020) Performed By: #### L 100.0100, L500.2500 ####[facility] [address] [place], [address] Glucose [Mass/Vol] 165 mg/dL High 70-99 [facility] Comment on above: Performed By: #### L 100.0100, L500.2500 ####[facility] [address] [place], [address] Potassium [Moles/Vol] 3.6 mmol/L Normal 3.3-5.[address] [facility] Comment on above: Performed By: #### L 100.0100, L500.2500 ####[facility] [address] [place], [address] Sodium [Moles/Vol] 142 mmol/L Normal 133-145 [facility] Comment on above: Performed By: #### L 100.0100, L500.2500 ####[facility] [address] [place], [address] Urea nitrogen [Mass/Vol] 14 mg/dL Normal 4-19 [facility] Comment on above: Performed By: #### L 100.0100, L500.2500 ####[facility] [address] [place], [address] Basophil percentageOrdered B y: Miller Blank on 08-01-2024 Basophils/100 WBC (Bld) 0.3 % 0-1 [facility] Bedside Glucoseon 08-01-2024 FINGERSTICK GLU 131 mg/dL High 74-106 [facility] Comment on above: Result Comment: FATEMEH MILLER OF PATIENT CARE PER NURSING PROTOCOL Performed By: #### L 501.080 ####[facility] [address] [place], [address] FINGERSTICK GLU 152 mg/dL High 74-106 [facility] Comment on above: Result Comment: FATEMEH MILELR OF PATIENT CARE PER NURSING PROTOCOL Performed By: #### L 501.080 ####[facility] [address] [place], [address] CBC W/Diff, Automatedon 05-0 5-2025 Absolute Lymph 1.14 X10 3/uL Normal 0.83-4.51 [facility] Comment on above: Performed By: #### L 100.0100, L500.2500 ####[facility] [address] [place], [address] Absolute Neut 6.1 X10 3/uL Normal 2.0-7.7 [facility] Comment on above: Performed By: #### L 100.0100, L500.2500 ####[facility] [address] [place], [address] Basophils/100 WBC (Bld) 0.3 % Normal 0-1 [facility] Comment on above: Performed By: #### L 100.0100, L500.2500 ####[facility] [address] [place], [address] Eosinophils/100 WBC (Bld) 2.3 % Normal 0-5 [facility] Comment on above: Performed By: #### L 100.0100, L500.2500 ####[facility] [address] [place], [address] Erythrocyte distribution width (RBC) [Ratio] 17.6 % High 11.6-14.6 [facility] Comment on above: Performed By: #### L 100.0100, L500.2500 ####[facility] [address] [place], [address] Hematocrit (Bld) [Volume fraction] 33.4 % Low 40-54 [facility] Comment on above: Performed By: #### L 100.0100, L500.2500 ####[facility] [address] [place], [address] Hemoglobin (Bld) [Mass/Vol] 10.7 g/dL Low 13.0-16.5 [facility] Comment on above: Performed By: #### L 100.0100, L500.2500 ####[facility] [address] [place], [address] IG% 0.900 Normal 0.0-0.9 [facility] Comment on above: Result Comment: IG% - Immature Granulocytes (promyelocytes, myelocytes andmetamyelocytes) > 1% indicates that a LEFT SHIFT is Present. Performed By: #### L 100.0100, L500.2500 ####[facility] [address] [place], [address] Lymphocytes/100 WBC (Bld) 13.2 % Low 19-41 [facility] Comment on above: Performed By: #### L 100.0100, L500.2500 ####[facility] [address] [place], [address] MCH (RBC) [Entitic mass] 28.7 pg Normal 27.0-32.0 [facility] Comment on above: Performed By: #### L 100.0100, L500.2500 ####[facility] [address] [place], [address] MCHC (RBC) [Mass/Vol] 32.0 g/dL Normal 32-[address] [facility] Comment on above: Performed By: #### L 100.0100, L500.2500 ####[facility] [address] [place], [address] MCV (RBC) [Entitic vol] 89.5 fL Normal 80-94 [facility] Comment on above: Performed By: #### L 100.0100, L500.2500 ####[facility] [address] [place], [address] Monocytes/100 WBC (Bld) 12.3 % High 0-10 [facility] Comment on above: Performed By: #### L 100.0100, L500.2500 ####[facility] [address] [place], [address] Neutrophils/100 WBC (Bld) 71.0 % High 47-70 [facility] Comment on above: Performed By: #### L 100.0100, L500.2500 ####[facility] [address] [place], [address] Nucleated RBC (Bld) [#/Vol] 0 10*3/uL Normal 0-5 [facility] Comment on above: Performed By: #### L 100.0100, L500.2500 ####[facility] [address] [place], [address] Platelet mean volume (Bld) [Entitic vol] 10.2 fL Normal 6.2-12.0 [facility] Comment on above: Performed By: #### L 100.0100, L500.2500 ####[facility] [address] [place], [address] Platelets (Bld) [#/Vol] 222 10*3/uL Normal 150-450 [facility] Comment on above: Performed By: #### L 100.0100, L500.2500 ####[facility] [address] [place], [address] RBC (Bld) [#/Vol] 3.73 10*6/uL Low 4.6-6.2 [facility] Comment on above: Performed By: #### L 100.0100, L500.2500 ####[facility] [address] [place], [address] RDW SD 57.0 fl High 35.1-43.9 [facility] Comment on above: Performed By: #### L 100.0100, L500.2500 ####[facility] [address] [place], [address] WBC (Bld) [#/Vol] 8.6 10*3/uL Normal 4.4-11.0 [facility] Comment on above: Performed By: #### L 100.0100, L500.2500 ####[facility] [address] [place], [address] Carbon dioxide, total [Moles /volume] in Central venous bloodOrdered By: Miller Blank on 08-01-2024 CO2 [Moles/Vol] 20.3 mmol/L Low 21.0-32.0 [facility] Chloride assayOrdered By: Keegan Blank on 08-01-2024 Chloride [Moles/Vol] 113 mmol/L High 98-108 [facility] Consultation - Urologyon Consultation - Urology Normal [facility] Eosinophil percentageOrdered By: Miller Blank on 08-01-2024 Eosinophils/100 WBC (Bld) 2.3 % 0-5 [facility] Erythrocyte distribution wid th (RBC) [Ratio]Ordered By: Miller Blank on 08-01-2024 Erythrocyte distribution width (RBC) [Entitic vol] 57.0 fL High 35.1-43.9 [facility] Erythrocyte distribution wid th ratioOrdered By: Miller Blank on 08-01-2024 Erythrocyte distribution width (RBC) [Ratio] 17.6 % High 11.6-14.6 [facility] Erythrocyte distribution wid th standard deviationOrdered By: Miller Blank on 08-01-2024 Erythrocyte distribution width (RBC) [Ratio] 57.0 fl High 35.1-43.9 [facility] Estimation of creatinine moon aranceOrdered By: Miller Blank on 08-01-2024 Estimated Creatinine Clearance Calc 73.88 ml/min 50-250 [facility] GFR/1.73 sq M.predicted elias g non-blacks MDRD (S/P/Bld) [Vol rate/Area]Ordered By: Miller Blank on 08-01-2024 Estimated GFR (MDRD) Non-Af Amer 77 >60 [facility] Comment on above: mL/min/1.73m2 CKD-EP I Creatinine Equation (2020) Glomerular filtration rate ( GFR) estimation/1.73 sq m using serum, plasma, or whole bOrdered By: Miller Blank on 08-01-2024 GFR/1.73 sq M.predicted among non-blacks MDRD (S/P/Bld) [Vol rate/Area] 77 mL/min/{1.73_m2} >60 [facility] Comment on above: mL/min/1.73m2 CKD-EP I Creatinine Equation (2020) [facility] deOrdered By: Basilio Dill on 08-01-2024 Bedside Glucose (Misc Panel) 131 mg/dL High 74-106 [facility] Comment on above: MANAGEMENT OF PATIEN T CARE PER NURSING PROTOCOL Glucose [Mass/Vol] 131 mg/dL High 74-106 [facility] Comment on above: MANAGEMENT OF PATIEN T CARE PER NURSING PROTOCOL Hematocrit Auto (Bld) [Volum e fraction]Ordered By: Miller Blank on 08-01-2024 Hematocrit (Bld) [Volume fraction] 33.4 % Low 40-54 [facility] Hemoglobin measurementOrdere d By: Miller Blank on 08-01-2024 Hemoglobin (Bld) [Mass/Vol] 10.7 g/dL Low 13.0-16.5 [facility] Immature granulocytes/100 WB C Auto (Bld)Ordered By: Miller Blank on 08-01-2024 Immature granulocytes/100 WBC (Bld) 0.900 % 0.0-0.9 [facility] Comment on above: IG% - Immature Granu locytes (promyelocytes, myelocytes and metamyelocytes) > 1% indicates that a LEFT SHIFT is Present. Kidney and Bladderon 0[address] [facility] Lymphocytes Auto (Unsp spec) [#/Vol]Ordered By: Miller Blank on 08-01-2024 Lymphocytes (Bld) [#/Vol] 1.14 10*3/uL 0.83-4.51 [facility] Lymphocytes/100 WBC Auto (Un sp spec)Ordered By: Miller Blank on 08-01-2024 Lymphocytes/100 WBC (Bld) 13.2 % Low 19-41 [facility] MCV (mean corpuscular volume ) determinationOrdered By: Miller Blank on 08-01-2024 MCV (RBC) [Entitic vol] 89.5 fL 80-94 [facility] Mean corpuscular hemoglobin (MCH) determinationOrdered By: Miller Blank on 08-01-2024 MCH (RBC) [Entitic mass] 28.7 pg 27.0-32.0 [facility] Mean corpuscular hemoglobin concentration (MCHC) determinationOrdered By: Miller Blank on 08-01-2024 MCHC (RBC) [Mass/Vol] 32.0 g/dL 32-[address] [facility] Mean platelet volume determi nationOrdered By: Miller Blank on 08-01-2024 Platelet mean volume (Bld) [Entitic vol] 10.2 fL 6.2-12.0 [facility] Monocyte percentageOrdered B y: Miller Blank on 08-01-2024 Monocytes/100 WBC (Bld) 12.3 % High 0-10 [facility] Neutrophil percentageOrdered By: Miller Blank on 08-01-2024 Neutrophils/100 WBC (Bld) 71.0 % High 47-70 [facility] Nucleated red blood cell per centageOrdered By: Miller Blank on 08-01-2024 Nucleated RBC/100 WBC (Bld) [Ratio] 0 % 0-5 [facility] Platelet countOrdered By: Keegan Blank on 08-01-2024 Platelets (Bld) [#/Vol] 222 10*3/uL 150-450 [facility] Potassium (Unsp spec) [Mass/ Vol]Ordered By: Miller Blank on 08-01-2024 Potassium [Moles/Vol] 3.6 mmol/L 3.3-5.[address] [facility] Potassium measurement (mass/ volume)Ordered By: Miller Blank on 08-01-2024 Potassium (Unsp spec) [Mass/Vol] 3.6 mmol/L 3.3-5.1 [facility] RBC Auto (Bld) [#/Vol]Ordere d By: Miller Blank on 08-01-2024 RBC (Bld) [#/Vol] 3.73 10*6/uL Low 4.6-6.2 [facility] Serum creatinine measurement (mass/volume)Ordered By: Miller Blank on 08-01-2024 Creatinine [Mass/Vol] 1.06 mg/dL 0.70-1.[address] [facility] Serum glucose measurement (m ass/volume)Ordered By: Miller Blank on 08-01-2024 Glucose [Mass/Vol] 165 mg/dL High 70-99 [facility] Serum or plasma calcium marlyn urement (mass/volume)Ordered By: Miller Blank on 08-01-2024 Calcium [Mass/Vol] 8.7 mg/dL 7.6-11.0 [facility] Serum or plasma urea nitroge n measurement (mass/volume)Ordered By: Miller Blank on 08-01-2024 Urea nitrogen [Mass/Vol] 14 mg/dL 4-19 [facility] Sodium levelOrdered By: Gerardo Blank on 08-01-2024 Sodium [Moles/Vol] 142 mmol/L 133-145 [facility] Trough vancomycin levelOrder ed By: Miller Blank on 08-01-2024 Vancomycin trough [Mass/Vol] 23.9 ug/mL High 5.0-15.0 [facility] Comment on above: Recommended goal tro ugh ranges are generally 10-15 mcg/ml for less severe/complicated infections such as cellulitis or UTI and 15-20 mcg/ml for more severe/complicated infections such as bacteremia/sepsis, osteomyelitis, pneumonia or meningitis. Goal trough ranges should take into account indication, patient-specific factors and organism DENNYS.VANCOMYCIN STANDARED DRUG THERAPY TROUGH LEVEL: 5.0 - 15.0 mg/L VANCOMYCIN HIGH INTENSITY THERAPY TROUGH LEVEL: 15.0 - 20.0 mg/L High Intensity therapy recommended for serious lifethreatening infections include:- Cypazfmzlz-Uaccvzgvnrqj-Glvxjrrcc (Ventilator/Healtcare Associated)-Sepsis PLEASE CONTACT PHARMACY SERVICES (#7162) FOR INTERPRETATIONOF RESULTS. Vancomycin trough [Mass/Vol] Ordered By: Miller Blank on 08-01-2024 Vancomycin Level Trough 23.9 ug/mL High 5.0-15.0 [facility] Comment on above: Recommended goal tro ugh ranges are generally 10-15 mcg/ml for less severe/complicated infections such as cellulitis or UTI and 15-20 mcg/ml for more severe/complicated infections such as bacteremia/sepsis, osteomyelitis, pneumonia or meningitis. Goal trough ranges should take into account indication, patient-specific factors and organism DENNYS.VANCOMYCIN STANDARED DRUG THERAPY TROUGH LEVEL: 5.0 - 15.0 mg/L VANCOMYCIN HIGH INTENSITY THERAPY TROUGH LEVEL: 15.0 - 20.0 mg/L High Intensity therapy recommended for serious lifethreatening infections include:- Ofatzurmxm-Jlvkbxktqnia-Ikxooanuw (Ventilator/Healtcare Associated)-Sepsis PLEASE CONTACT PHARMACY SERVICES (#5424) FOR INTERPRETATIONOF RESULTS. Vancomycin, Trough Levelon 0 08-01-2024 VANCO, TROUGH 23.9 ug/mL High 5.0-15.0 [facility] Comment on above: Order Comment: Comme nts: Trough to be drawn 30 mins prior to scheduled [id number] Result Comment: Jhon mmended goal trough ranges are generally 10-15 mcg/mlfor less severe/complicated infections such as cellulitisor UTI and 15-20 mcg/ml for more severe/complicatedinfections such as bacteremia/sepsis, osteomyelitis,pneumonia or meningitis. Goal trough ranges should takeinto account indication, patient-specific factors andorganism DENNYS.VANCOMYCIN STANDARED DRUG THERAPY TROUGH LEVEL: 5.0 - 15.0 mg/LVANCOMYCIN HIGH INTENSITY THERAPY TROUGH LEVEL: 15.0 - 20.0 mg/LHigh Intensity therapy recommended for serious lifethreatening infections include:- Hdavziknaa-Kbtnhxuxzfux-Pcgjlyccd (Ventilator/Healtcare Associated)-SepsisPLEASE CONTACT PHARMACY SERVICES (#8298) FOR INTERPRETATIONOF RESULTS. Performed By: #### L 501.8820 ####[facility] [address] [place], [address] Venous blood ammonia measure mentOrdered By: Isha Zurita on 08-01-2024 Ammonia (P) [Moles/Vol] 43.8 umol/L 16-60 [facility] White blood cell (WBC) count Ordered By: Miller Blank on 05-05-2025 WBC (Bld) [#/Vol] 8.6 10*3/uL 4.4-11.0 [facility] Basic Metabolic Profile (BMP )on 07-31-2024 BUN/CRE 14.8 RATIO Normal 10-20 [facility] Comment on above: Performed By: #### L 501.2300, L500.2500, L100.0100, L501.5200 ####[facility] [address] [place], [address] Calcium [Mass/Vol] 8.8 mg/dL Normal 7.6-11.0 [facility] Comment on above: Performed By: #### L 501.2300, L500.2500, L100.0100, L501.5200 ####[facility] [address] [place], [address] Chloride [Moles/Vol] 111 mmol/L High 98-108 [facility] Comment on above: Performed By: #### L 501.2300, L500.2500, L100.0100, L501.5200 ####[facility] [address] [place], [address] CO2 [Moles/Vol] 19.9 mmol/L Low 21.0-32.0 [facility] Comment on above: Performed By: #### L 501.2300, L500.2500, L100.0100, L501.5200 ####[facility] [address] [place], [address] Creatinine [Mass/Vol] 0.89 mg/dL Normal 0.70-1.[address] [facility] Comment on above: Performed By: #### L 501.2300, L500.2500, L100.0100, L501.5200 ####[facility] [address] [place], [address] ECRCL 88.54 ml/min Normal 50-250 [facility] Comment on above: Performed By: #### L 501.2300, L500.2500, L100.0100, L501.5200 ####[facility] [address] [place], [address] GAP 10 Normal 5-15 [facility] Comment on above: Performed By: #### L 501.2300, L500.2500, L100.0100, L501.5200 ####[facility] [address] [place], [address] GFR/1.73 sq M.predicted among non-blacks MDRD (S/P/Bld) [Vol rate/Area] 94 mL/min/{1.73_m2} Normal >60 [facility] Comment on above: Result Comment: mL/m in/1.73m2 CKD-EPI Creatinine Equation (2020) Performed By: #### L 501.2300, L500.2500, L100.0100, L501.5200 ####[facility] [address] [place], [address] Glucose [Mass/Vol] 149 mg/dL High 70-99 [facility] Comment on above: Performed By: #### L 501.2300, L500.2500, L100.0100, L501.5200 ####[facility] [address] [place], [address] Potassium [Moles/Vol] 3.6 mmol/L Normal 3.3-5.[address] [facility] Comment on above: Performed By: #### L 501.2300, L500.2500, L100.0100, L501.5200 ####[facility] [address] [place], [address] Sodium [Moles/Vol] 140 mmol/L Normal 133-145 [facility] Comment on above: Performed By: #### L 501.2300, L500.2500, L100.0100, L501.5200 ####[facility] [address] [place], [address] Urea nitrogen [Mass/Vol] 13 mg/dL Normal 4-19 [facility] Comment on above: Performed By: #### L 501.2300, L500.2500, L100.0100, L501.5200 ####[facility] [address] [place], [address] Bedside Glucoseon 07-31-2024 FINGERSTICK GLU 140 mg/dL High 74-106 [facility] Comment on above: Result Comment: FATEMEH GEMENT OF PATIENT CARE PER NURSING PROTOCOL Performed By: #### L 501.080 ####[facility] [address] [place], [address] FINGERSTICK GLU 166 mg/dL High -106 [facility] Comment on above: Result Comment: FATEMEH GEMENT OF PATIENT CARE PER NURSING PROTOCOL Performed By: #### L 501.080 ####[facility] [address] [place], [address] FINGERSTICK GLU 185 mg/dL High -106 [facility] Comment on above: Result Comment: FATEMEH GEMENT OF PATIENT CARE PER NURSING PROTOCOL Performed By: #### L 501.080 ####[facility] [address] [place], [address] FINGERSTICK GLU 139 mg/dL High 74-106 [facility] Comment on above: Result Comment: FATEMEH GEMENT OF PATIENT CARE PER NURSING PROTOCOL Performed By: #### L 501.080 ####[facility] [address] [place], [address] FINGERSTICK GLU 162 mg/dL High -106 [facility] Comment on above: Result Comment: FATEMEH GEMENT OF PATIENT CARE PER NURSING PROTOCOL Performed By: #### L 501.080 ####[facility] [address] [place], [address] CBC W/Diff, Automatedon 05-0 Absolute Lymph 0.96 X10 3/uL Normal 0.83-4.51 [facility] Comment on above: Performed By: #### L 501.2300, L500.2500, L100.0100, L501.5200 ####[facility] [address] [place], [address] Absolute Neut 9.0 X10 3/uL High 2.0-7.7 [facility] Comment on above: Performed By: #### L 501.2300, L500.2500, L100.0100, L501.5200 ####[facility] [address] [place], [address] Basophils/100 WBC (Bld) 0.3 % Normal 0-1 [facility] Comment on above: Performed By: #### L 501.2300, L500.2500, L100.0100, L501.5200 ####[facility] [address] [place], [address] Eosinophils/100 WBC (Bld) 1.8 % Normal 0-5 [facility] Comment on above: Performed By: #### L 501.2300, L500.2500, L100.0100, L501.5200 ####[facility] [address] [place], [address] Erythrocyte distribution width (RBC) [Ratio] 17.2 % High 11.6-14.6 [facility] Comment on above: Performed By: #### L 501.2300, L500.2500, L100.0100, L501.5200 ####[facility] [address] [place], [address] Hematocrit (Bld) [Volume fraction] 34.1 % Low 40-54 [facility] Comment on above: Performed By: #### L 501.2300, L500.2500, L100.0100, L501.5200 ####[facility] [address] [place], [address] Hemoglobin (Bld) [Mass/Vol] 11.0 g/dL Low 13.0-16.5 [facility] Comment on above: Performed By: #### L 501.2300, L500.2500, L100.0100, L501.5200 ####[facility] [address] [place], [address] IG% 0.600 Normal 0.0-0.9 [facility] Comment on above: Result Comment: IG% - Immature Granulocytes (promyelocytes, myelocytes andmetamyelocytes) > 1% indicates that a LEFT SHIFT is Present. Performed By: #### L 501.2300, L500.2500, L100.0100, L501.5200 ####[facility] [address] [place], [address] Lymphocytes/100 WBC (Bld) 8.7 % Low 19-41 [facility] Comment on above: Performed By: #### L 501.2300, L500.2500, L100.0100, L501.5200 ####[facility] [address] [place], [address] MCH (RBC) [Entitic mass] 28.6 pg Normal 27.0-32.0 [facility] Comment on above: Performed By: #### L 501.2300, L500.2500, L100.0100, L501.5200 ####[facility] [address] [place], [address] MCHC (RBC) [Mass/Vol] 32.3 g/dL Normal 32-[address] [facility] Comment on above: Performed By: #### L 501.2300, L500.2500, L100.0100, L501.5200 ####[facility] [address] [place], [address] MCV (RBC) [Entitic vol] 88.6 fL Normal 80-94 [facility] Comment on above: Performed By: #### L 501.2300, L500.2500, L100.0100, L501.5200 ####[facility] [address] [place], [address] Monocytes/100 WBC (Bld) 7.3 % Normal 0-10 [facility] Comment on above: Performed By: #### L 501.2300, L500.2500, L100.0100, L501.5200 ####[facility] [address] [place], [address] Neutrophils/100 WBC (Bld) 81.3 % High 47-70 [facility] Comment on above: Performed By: #### L 501.2300, L500.2500, L100.0100, L501.5200 ####[facility] [address] [place], [address] Nucleated RBC (Bld) [#/Vol] 0 10*3/uL Normal 0-5 [facility] Comment on above: Performed By: #### L 501.2300, L500.2500, L100.0100, L501.5200 ####[facility] [address] [place], [address] Platelet mean volume (Bld) [Entitic vol] 9.6 fL Normal 6.2-12.0 [facility] Comment on above: Performed By: #### L 501.2300, L500.2500, L100.0100, L501.5200 ####[facility] [address] [place], [address] Platelets (Bld) [#/Vol] 239 10*3/uL Normal 150-450 [facility] Comment on above: Performed By: #### L 501.2300, L500.2500, L100.0100, L501.5200 ####[facility] [address] [place], [address] RBC (Bld) [#/Vol] 3.85 10*6/uL Low 4.6-6.2 [facility] Comment on above: Performed By: #### L 501.2300, L500.2500, L100.0100, L501.5200 ####[facility] [address] [place], [address] RDW SD 55.7 fl High 35.1-43.9 [facility] Comment on above: Performed By: #### L 501.2300, L500.2500, L100.0100, L501.5200 ####[facility] [address] [place], [address] WBC (Bld) [#/Vol] 11.1 10*3/uL High 4.4-11.0 [facility] Comment on above: Performed By: #### L 501.2300, L500.2500, L100.0100, L501.5200 ####[facility] [address] [place], [address] Magnesiumon 07-31-2024 Magnesium [Mass/Vol] 1.8 mg/dL Normal 1.5-2.2 [facility] Comment on above: Performed By: #### L 501.2300, L500.2500, L100.0100, L501.5200 ####[facility] [address] [place], [address] Magnesium (Unsp spec) [Mass/ Vol]Ordered By: Miller Blank on 07-31-2024 Magnesium [Mass/Vol] 1.8 mg/dL 1.5-2.2 [facility] Magnesium measurement (mass/ volume)Ordered By: Miller Blank on 07-31-2024 Magnesium (Unsp spec) [Mass/Vol] 1.8 mg/dL 1.5-2.2 [facility] Phosphoruson 07-31-2024 Phosphate [Mass/Vol] 2.8 mg/dL Normal 2.7-4.5 [facility] Comment on above: Performed By: #### L 501.2300, L500.2500, L100.0100, L501.5200 ####[facility] [address] [place], [place], [address] Serum phosphorus measurement Ordered By: Miller Blank on 07-31-2024 Phosphorus Level 2.8 mg/dL 2.7-4.5 [facility] Vancomycin, Trough Levelon 0 07-31-2024 VANCO, TROUGH 19.4 ug/mL High 5.0-15.0 [facility] Comment on above: Order Comment: Comme nts: Trough to be drawn 30 mins prior to scheduled [id number] Result Comment: Jhon mmended goal trough ranges are generally 10-15 mcg/mlfor less severe/complicated infections such as cellulitisor UTI and 15-20 mcg/ml for more severe/complicatedinfections such as bacteremia/sepsis, osteomyelitis,pneumonia or meningitis. Goal trough ranges should takeinto account indication, patient-specific factors andorganism DENNYS.VANCOMYCIN STANDARED DRUG THERAPY TROUGH LEVEL: 5.0 - 15.0 mg/LVANCOMYCIN HIGH INTENSITY THERAPY TROUGH LEVEL: 15.0 - 20.0 mg/LHigh Intensity therapy recommended for serious lifethreatening infections include:- Kyallqfohf-Gryzeetfhwtx-Aysogrnur (Ventilator/Healtcare Associated)-SepsisPLEASE CONTACT PHARMACY SERVICES (#1172) FOR INTERPRETATIONOF RESULTS. Performed By: #### L 501.8820 ####[facility] [address] [place], [place], [address] Bedside Glucoseon 07-30-2024 FINGERSTICK GLU 134 mg/dL High 74-106 [facility] Comment on above: Result Comment: FATEMEH GEMENT OF PATIENT CARE PER NURSING PROTOCOL Performed By: #### L 501.080 ####[facility] [address] [place], [place], [address] FINGERSTICK GLU 151 mg/dL High 74-106 [facility] Comment on above: Result Comment: FATEMEH GEMENT OF PATIENT CARE PER NURSING PROTOCOL Performed By: #### L 501.080 ####[facility] [address] [place], [address] Bilirubin, totalOrdered By: Isha Yudith on 07-30-2024 Bilirubin [Mass/Vol] 0.28 mg/dL 0.00-1.30 [facility] Blood manual differential co mment interpretation (narrative result)Ordered By: Isha Zurita on 07-30-2024 Manual differential comment Dmitriy (Bld) [Interp] SCANNED [facility] Comment on above: SLIGHT MONOCYTOSIS N OTED CBC W/Diff, Automatedon 05- SMEAR COMMENT SCANNED Normal [facility] Comment on above: Result Comment: SLIG HT MONOCYTOSIS NOTED Performed By: #### L 501.9985, L100.0100, L500.4050 ####[facility] [address] [place], [address] Comprehensive Metabolic Prof ilon 07-30-2024 Albumin [Mass/Vol] 3.0 g/dL Low 3.4-4.8 [facility] Comment on above: Performed By: #### L 501.9985, L100.0100, L500.4050 ####[facility] [address] [place], [address] Albumin/Globulin [Mass ratio] 1.0 {ratio} Normal 0.9-2.4 [facility] Comment on above: Performed By: #### L 501.9985, L100.0100, L500.4050 ####[facility] [address] [place], [address] ALK PHOS 95 U/L Normal 40-129 [facility] Comment on above: Performed By: #### L 501.9985, L100.0100, L500.4050 ####[facility] [address] [place], [address] ALT [Catalytic activity/Vol] 16 U/L Normal <=46 [facility] Comment on above: Performed By: #### L 501.9985, L100.0100, L500.4050 ####[facility] [address] [place], [address] AST [Catalytic activity/Vol] 14 U/L Normal <=37 [facility] Comment on above: Performed By: #### L 501.9985, L100.0100, L500.4050 ####[facility] [address] [place], [address] Bilirubin [Mass/Vol] 0.28 mg/dL Normal 0.00-1.30 [facility] Comment on above: Performed By: #### L 501.9985, L100.0100, L500.4050 ####[facility] [address] [place], [address] BUN/CRE 16.0 RATIO Normal 10-20 [facility] Comment on above: Performed By: #### L 501.9985, L100.0100, L500.4050 ####[facility] [address] [place], [address] Calcium [Mass/Vol] 8.3 mg/dL Normal 7.6-11.0 [facility] Comment on above: Performed By: #### L 501.9985, L100.0100, L500.4050 ####[facility] [address] [place], [address] Chloride [Moles/Vol] 112 mmol/L High 98-108 [facility] Comment on above: Performed By: #### L 501.9985, L100.0100, L500.4050 ####[facility] [address] [place], [address] CO2 [Moles/Vol] 20.2 mmol/L Low 21.0-32.0 [facility] Comment on above: Performed By: #### L 501.9985, L100.0100, L500.4050 ####[facility] [address] [place], [address] Creatinine [Mass/Vol] 0.53 mg/dL Low 0.70-1.[address] [facility] Comment on above: Performed By: #### L 501.9985, L100.0100, L500.4050 ####[facility] [address] [place], [address] ECRCL 98.55 ml/min Normal 50-250 [facility] Comment on above: Performed By: #### L 501.9985, L100.0100, L500.4050 ####[facility] [address] [place], [address] GAP 10 Normal 5-15 [facility] Comment on above: Performed By: #### L 501.9985, L100.0100, L500.4050 ####[facility] [address] [place], [address] GFR/1.73 sq M.predicted among non-blacks MDRD (S/P/Bld) [Vol rate/Area] 110 mL/min/{1.73_m2} Normal >60 [facility] Comment on above: Result Comment: mL/m in/1.73m2 CKD-EPI Creatinine Equation (2020) Performed By: #### L 501.9985, L100.0100, L500.4050 ####[facility] [address] [place], [address] Globulin (S) [Mass/Vol] 2.9 g/dL Normal 2.2-4.2 [facility] Comment on above: Performed By: #### L 501.9985, L100.0100, L500.4050 ####[facility] [address] [place], [address] Glucose [Mass/Vol] 144 mg/dL High 70-99 [facility] Comment on above: Performed By: #### L 501.9985, L100.0100, L500.4050 ####[facility] [address] [place], [address] Potassium [Moles/Vol] 3.7 mmol/L Normal 3.3-5.[address] [facility] Comment on above: Performed By: #### L 501.9985, L100.0100, L500.4050 ####[facility] [address] [place], [address] Sodium [Moles/Vol] 141 mmol/L Normal 133-145 [facility] Comment on above: Performed By: #### L 501.9985, L100.0100, L500.4050 ####[facility] [address] [place], [address] T PROT 5.8 g/dL Low 5.9-8.4 [facility] Comment on above: Performed By: #### L 501.9985, L100.0100, L500.4050 ####[facility] [address] [place], [address] Urea nitrogen [Mass/Vol] 9 mg/dL Normal 4-19 [facility] Comment on above: Performed By: #### L 501.9985, L100.0100, L500.4050 ####[facility] [address] [place], [address] Hemoglobin A1con 07-30-2024 HbA1c (Bld) [Mass fraction] 7.1 % High <=5.6 [facility] Comment on above: Result Comment: Norm al < 5.7 % Prediabetic 5.7 - 6.4 % Diabetic >or= 6.5 % Please note range changes. Performed By: #### L 501.9985, L100.0100, L500.4050 ####[facility] [address] [place], [address] Hemoglobin A1c percentageOrd ered By: Isha Zurita on 07-30-2024 HbA1c (Bld) [Mass fraction] 7.1 % High <5.7 [facility] Comment on above: Normal < 5.7 % Predi abetic 5.7 - 6.4 % Diabetic >or= 6.5 % Please note range changes. Laboratory - Chemistry and C hemistry - challengeOrdered By: Isha Zurita on 07-30-2024 AST [Catalytic activity/Vol] 14 U/L <38 [facility] Lactic Acidon 07-30-2024 Lactate [Moles/Vol] 1.7 mmol/L Normal 0.0-2.0 [facility] Comment on above: Performed By: #### L 503.6005 ####[facility] [address] [place], [address] Lactic acid measurementOrder ed By: Andre Ferreira on 07-30-2024 Lactate [Moles/Vol] 1.7 mmol/L 0.0-2.0 [facility] Manual differential comment Dmitriy (Bld) [Interp]Ordered By: Isha Zurita on 07-30-2024 Differential Comment SCANNED [facility] Comment on above: SLIGHT MONOCYTOSIS N OTED No Panel InformationOrdered By: Isha Zurita on 07-30-2024 14 U/L <38 [facility] Serum globulin measurementOr dered By: Isha Zurita on 07-30-2024 Globulin (S) [Mass/Vol] 2.9 g/dL 2.2-4.2 [facility] Serum or plasma alanine orozco otransferase (ALT) measurementOrdered By: Isha Zurita on 07-30-2024 ALT [Catalytic activity/Vol] 16 U/L <47 [facility] Serum or plasma albumin marlyn urement (mass/volume)Ordered By: Isha Zurita on 07-30-2024 Albumin [Mass/Vol] 3.0 g/dL Low 3.4-4.8 [facility] Serum or plasma albumin/glob ulin mass ratioOrdered By: Isha Zurita on 07-30-2024 Albumin/Globulin [Mass ratio] 1.0 {ratio} 0.9-2.4 [facility] Serum or plasma alkaline marisol sphatase measurementOrdered By: Isha Zurita on 07-30-2024 ALP [Catalytic activity/Vol] 95 U/L 40-129 [facility] Total proteinOrdered By: Aut umn White on 07-30-2024 Protein [Mass/Vol] 5.8 g/dL Low 5.9-8.4 [facility] 12 Lead EKGon 07-29-2024 12 Lead EKG Normal [facility] 36on 07-29-2024 36 S: Patient's spouse spoke with [facility] nurse regarding test results for spouse from 07/04/2024 B: Onset of symptoms/concern 07/04/2024 A: Patient had blood work completed on 07/04/2024 and has not received the results. Tests completed include: PSA total, T3 Free, T4 Free, TSH, Lipid Panel, Direct LDL, Complete Blood Count, Comprehensive Metabolic. Nurse reviewed the message from Dr. Cardona on 07/22/2024 addressing: TG is over 300, needs diet, Is he taking the Vascepa? Also his TSH is high, is he taking the 125 mcg Levothyroxine? Per spouse, patient is taking Vascepa and the Levothyroxine. Spouse requests to know the other test results. R: Message sent to office for follow up. Spouse verbalized understanding. Reason for Disposition Caller requesting lab results (Exception: Routine or non-urgent lab result.) Protocols used: [facility] Call - [facility] Activated partial thrombopla stin time (aPTT) in platelet poor plasma by coagulation aOrdered By: Andre Ferreira on 07-29-2024 aPTT Coag (PPP) [Time] 30.0 s 24.1-36.2 [facility] Bilirubin Test strip Ql (U)O rdered By: Andre Ferreira on 07-29-2024 Bilirubin Ql (U) Negative Negative [facility] Blood cultureOrdered By: Adama Ferreira on 07-29-2024 Bacteria identified Cx Nom (Bld) No growth in 5 days. [facility] Bacteria identified Cx Nom (Bld) No growth in 5 days. [facility] CBC W/Diff, Automatedon Absolute Lymph 1.10 X10 3/uL Normal 0.83-4.51 [facility] Comment on above: Performed By: #### M 200.1000, L300.4310, L300.3900, L503.6005, L500.4050, L100.0100 ####[facility] [address] [place], [address] Absolute Neut 17.3 X10 3/uL High 2.0-7.7 [facility] Comment on above: Performed By: #### M 200.1000, L300.4310, L300.3900, L503.6005, L500.4050, L100.0100 ####[facility] [address] [place], [address] Basophils/100 WBC (Bld) 0.3 % Normal 0-1 [facility] Comment on above: Performed By: #### M 200.1000, L300.4310, L300.3900, L503.6005, L500.4050, L100.0100 ####[facility] [address] [place], [address] Eosinophils/100 WBC (Bld) 0.4 % Normal 0-5 [facility] Comment on above: Performed By: #### M 200.1000, L300.4310, L300.3900, L503.6005, L500.4050, L100.0100 ####[facility] [address] [place], [address] Erythrocyte distribution width (RBC) [Ratio] 17.1 % High 11.6-14.6 [facility] Comment on above: Performed By: #### M 200.1000, L300.4310, L300.3900, L503.6005, L500.4050, L100.0100 ####[facility] [address] [place], [address] Hematocrit (Bld) [Volume fraction] 39.6 % Low 40-54 [facility] Comment on above: Performed By: #### M 200.1000, L300.4310, L300.3900, L503.6005, L500.4050, L100.0100 ####[facility] [address] [place], [address] Hemoglobin (Bld) [Mass/Vol] 13.0 g/dL Normal 13.0-16.5 [facility] Comment on above: Performed By: #### M 200.1000, L300.4310, L300.3900, L503.6005, L500.4050, L100.0100 ####[facility] [address] [place], [address] IG% 0.900 Normal 0.0-0.9 [facility] Comment on above: Result Comment: IG% - Immature Granulocytes (promyelocytes, myelocytes andmetamyelocytes) > 1% indicates that a LEFT SHIFT is Present. Performed By: #### M 200.1000, L300.4310, L300.3900, L503.6005, L500.4050, L100.0100 ####[facility] [address] [place], [address] Lymphocytes/100 WBC (Bld) 5.5 % Low 19-41 [facility] Comment on above: Performed By: #### M 200.1000, L300.4310, L300.3900, L503.6005, L500.4050, L100.0100 ####[facility] [address] [place], [address] MCH (RBC) [Entitic mass] 29.1 pg Normal 27.0-32.0 [facility] Comment on above: Performed By: #### M 200.1000, L300.4310, L300.3900, L503.6005, L500.4050, L100.0100 ####[facility] [address] [place], [address] MCHC (RBC) [Mass/Vol] 32.8 g/dL Normal 32-[address] [facility] Comment on above: Performed By: #### M 200.1000, L300.4310, L300.3900, L503.6005, L500.4050, L100.0100 ####[facility] [address] [place], [address] MCV (RBC) [Entitic vol] 88.6 fL Normal 80-94 [facility] Comment on above: Performed By: #### M 200.1000, L300.4310, L300.3900, L503.6005, L500.4050, L100.0100 ####[facility] [address] [place], [address] Monocytes/100 WBC (Bld) 6.2 % Normal 0-10 [facility] Comment on above: Performed By: #### M 200.1000, L300.4310, L300.3900, L503.6005, L500.4050, L100.0100 ####[facility] [address] [place], [address] Neutrophils/100 WBC (Bld) 86.7 % High 47-70 [facility] Comment on above: Performed By: #### M 200.1000, L300.4310, L300.3900, L503.6005, L500.4050, L100.0100 ####[facility] [address] [place], [address] Nucleated RBC (Bld) [#/Vol] 0 10*3/uL Normal 0-5 [facility] Comment on above: Performed By: #### M 200.1000, L300.4310, L300.3900, L503.6005, L500.4050, L100.0100 ####[facility] [address] [place], [address] Platelet mean volume (Bld) [Entitic vol] 9.8 fL Normal 6.2-12.0 [facility] Comment on above: Performed By: #### M 200.1000, L300.4310, L300.3900, L503.6005, L500.4050, L100.0100 ####[facility] [address] [place], [address] Platelets (Bld) [#/Vol] 309 10*3/uL Normal 150-450 [facility] Comment on above: Performed By: #### M 200.1000, L300.4310, L300.3900, L503.6005, L500.4050, L100.0100 ####[facility] [address] [place], [address] RBC (Bld) [#/Vol] 4.47 10*6/uL Low 4.6-6.2 [facility] Comment on above: Performed By: #### M 200.1000, L300.4310, L300.3900, L503.6005, L500.4050, L100.0100 ####[facility] [address] [place], [address] RDW SD 55.2 fl High 35.1-43.9 [facility] Comment on above: Performed By: #### M 200.1000, L300.4310, L300.3900, L503.6005, L500.4050, L100.0100 ####[facility] [address] [place], [address] WBC (Bld) [#/Vol] 19.9 10*3/uL High 4.4-11.0 [facility] Comment on above: Performed By: #### M 200.1000, L300.4310, L300.3900, L503.6005, L500.4050, L100.0100 ####[facility] [address] [place], [address] Chest PA and Lateralon 07-29 Chest PA and Lateral Normal [facility] Comprehensive Metabolic Prof ilon 07-29-2024 Albumin [Mass/Vol] 3.4 g/dL Normal 3.4-4.8 [facility] Comment on above: Performed By: #### M 200.1000, L300.4310, L300.3900, L503.6005, L500.4050, L100.0100 ####[facility] [address] [place], [address] Albumin/Globulin [Mass ratio] 0.8 {ratio} Low 0.9-2.4 [facility] Comment on above: Performed By: #### M 200.1000, L300.4310, L300.3900, L503.6005, L500.4050, L100.0100 ####[facility] [address] [place], [address] ALK PHOS 119 U/L Normal 40-129 [facility] Comment on above: Performed By: #### M 200.1000, L300.4310, L300.3900, L503.6005, L500.4050, L100.0100 ####[facility] [address] [place], [address] ALT [Catalytic activity/Vol] 20 U/L Normal <=46 [facility] Comment on above: Performed By: #### M 200.1000, L300.4310, L300.3900, L503.6005, L500.4050, L100.0100 ####[facility] [address] [place], [address] AST [Catalytic activity/Vol] 15 U/L Normal <=37 [facility] Comment on above: Performed By: #### M 200.1000, L300.4310, L300.3900, L503.6005, L500.4050, L100.0100 ####[facility] [address] [place], [address] Bilirubin [Mass/Vol] 0.24 mg/dL Normal 0.00-1.30 [facility] Comment on above: Performed By: #### M 200.1000, L300.4310, L300.3900, L503.6005, L500.4050, L100.0100 ####[facility] [address] [place], [address] BUN/CRE 14.8 RATIO Normal 10-20 [facility] Comment on above: Performed By: #### M 200.1000, L300.4310, L300.3900, L503.6005, L500.4050, L100.0100 ####[facility] [address] [place], [address] Calcium [Mass/Vol] 9.2 mg/dL Normal 7.6-11.0 [facility] Comment on above: Performed By: #### M 200.1000, L300.4310, L300.3900, L503.6005, L500.4050, L100.0100 ####[facility] [address] [place], [address] Chloride [Moles/Vol] 104 mmol/L Normal 98-108 [facility] Comment on above: Performed By: #### M 200.1000, L300.4310, L300.3900, L503.6005, L500.4050, L100.0100 ####[facility] [address] [place], [address] CO2 [Moles/Vol] 22.9 mmol/L Normal 21.0-32.0 [facility] Comment on above: Performed By: #### M 200.1000, L300.4310, L300.3900, L503.6005, L500.4050, L100.0100 ####[facility] [address] [place], [address] Creatinine [Mass/Vol] 0.83 mg/dL Normal 0.70-1.[address] [facility] Comment on above: Performed By: #### M 200.1000, L300.4310, L300.3900, L503.6005, L500.4050, L100.0100 ####[facility] [address] [place], [address] ECRCL 95.77 ml/min Normal 50-250 [facility] Comment on above: Performed By: #### M 200.1000, L300.4310, L300.3900, L503.6005, L500.4050, L100.0100 ####[facility] [address] [place], [address] GAP 13 Normal 5-15 [facility] Comment on above: Performed By: #### M 200.1000, L300.4310, L300.3900, L503.6005, L500.4050, L100.0100 ####[facility] [address] [place], [address] GFR/1.73 sq M.predicted among non-blacks MDRD (S/P/Bld) [Vol rate/Area] 96 mL/min/{1.73_m2} Normal >60 [facility] Comment on above: Result Comment: mL/m in/1.73m2 CKD-EPI Creatinine Equation (2020) Performed By: #### M 200.1000, L300.4310, L300.3900, L503.6005, L500.4050, L100.0100 ####[facility] [address] [place], [address] Globulin (S) [Mass/Vol] 4.3 g/dL High 2.2-4.2 [facility] Comment on above: Performed By: #### M 200.1000, L300.4310, L300.3900, L503.6005, L500.4050, L100.0100 ####[facility] [address] [place], [address] Glucose [Mass/Vol] 183 mg/dL High 70-99 [facility] Comment on above: Performed By: #### M 200.1000, L300.4310, L300.3900, L503.6005, L500.4050, L100.0100 ####[facility] [address] [place], [address] Potassium [Moles/Vol] 3.8 mmol/L Normal 3.3-5.[address] [facility] Comment on above: Performed By: #### M 200.1000, L300.4310, L300.3900, L503.6005, L500.4050, L100.0100 ####[facility] [address] [place], [address] Sodium [Moles/Vol] 140 mmol/L Normal 133-145 [facility] Comment on above: Performed By: #### M 200.1000, L300.4310, L300.3900, L503.6005, L500.4050, L100.0100 ####[facility] [address] [place], [address] T PROT 7.8 g/dL Normal 5.9-8.4 [facility] Comment on above: Performed By: #### M 200.1000, L300.4310, L300.3900, L503.6005, L500.4050, L100.0100 ####[facility] [address] [place], [address] Urea nitrogen [Mass/Vol] 12 mg/dL Normal 4-19 [facility] Comment on above: Performed By: #### M 200.1000, L300.4310, L300.3900, L503.6005, L500.4050, L100.0100 ####[facility] [address] [place], [address] Emergency Department Summary on 07-29-2024 Emergency Department Summary Normal [facility] Epithelial cells.squamous LM Ql (Urine sed)Ordered By: Andre Ferreira on 07-29-2024 Epithelial cells.squamous LM.HPF (Urine sed) [#/Area] 0 /[HPF] 0-5 [facility] Glucose Ql (U)Ordered By: Emeka Ferreira on 07-29-2024 Glucose (U) [Mass/Vol] 250 mg/dL High Normal [facility] H AND P Exam - Hospitaliston 07-29-2024 H&P Exam - Hospitalist Normal [facility] Influenza virus A and B and SARS-CoV-2 (COVID-19) and Respiratory syncytial virus RNAOrdered By: Andre Ferreira on 07-29-2024 SARS-CoV-2 (COVID-19) RNA IMER+probe Ql (Unsp spec) [facility] International normalized rat io (INR) calculationOrdered By: Andre Ferreira on 07-29-2024 INR Coag (Bld) [Relative time] 1.0 {INR} [facility] Ketones Test strip Ql (U)Ord ered By: Andre Ferreira on 07-29-2024 Ketones Ql (U) 5 mg/dl High Negative [facility] Lactic Acidon 07-29-2024 Lactate [Moles/Vol] 3.0 mmol/L Invalid Interpretation Code 0.0-2.0 [facility] Comment on above: Order Comment: Y Result Comment: Crit ical Result(s) Called DTENNANT at: 2110 by:VILMA??Results read back by same. Performed By: #### M 200.1000, L300.4310, L300.3900, L503.6005, L500.4050, L100.0100 ####[facility] [address] [place], [place], [address] M100.678on 07-29-2024 M100.678 Pending SARS-CoV-2 (COVID 19) Negative INFLUENZA A Negative INFLUENZA B Negative RSV PCR Negative Normal [facility] Comment on above: Performed By: #### M 100.678 ####[facility] [address] [place], [place], [address] Microscopic analysis of urin e for red blood cells (RBC)Ordered By: Andre Ferreira on 07-29-2024 Microscopic analysis of urine for red blood cells (RBC) 10-25 SEEN /hpf 0-5 [facility] Urine RBC 10-25 SEEN /hpf 0-5 [facility] Mucus LM Ql (Urine sed)Order ed By: Andre Ferreira on 07-29-2024 Mucus Ql (Urine sed) 0 SEEN /hpf [facility] Nitrite Test strip Ql (U)Ord ered By: Andre Ferreira on 07-29-2024 Nitrite Ql (U) Positive High Negative [facility] Partial Thromboplast Timeon 07-29-2024 aPTT Coag (Bld) [Time] 30.0 s Normal 24.1-36.2 [facility] Comment on above: Performed By: #### M 200.1000, L300.4310, L300.3900, L503.6005, L500.4050, L100.0100 ####[facility] [address] [place], [address] Protein Test strip Ql (U)Ord ered By: Andre Ferreira on 07-29-2024 Protein Ql (U) 100 mg/dl High Negative [facility] Prothrombin Time w/INRon INR Coag (PPP) [Relative time] 1.0 {INR} Normal [facility] Comment on above: Performed By: #### M 200.1000, L300.4310, L300.3900, L503.6005, L500.4050, L100.0100 ####[facility] [address] [place], [address] PT Coag (PPP) [Time] 13.7 s Normal 11.7-14.9 [facility] Comment on above: Performed By: #### M 200.1000, L300.4310, L300.3900, L503.6005, L500.4050, L100.0100 ####[facility] [address] [place], [address] Prothrombin timeOrdered By: Andre Ferreira on 07-29-2024 PT Coag (PPP) [Time] 13.7 s 11.7-14.9 [facility] Squamous epithelial cells de tection in urine sediment by light microscopyOrdered By: Andre Ferreira on 07-29-2024 Epithelial cells.squamous LM Ql (Urine sed) 0-5 SEEN /hpf 0-5 [facility] Urinalysis, Completeon 07-29 EPI,SQUAMOUS 0-5 SEEN Normal 0-5 [facility] Comment on above: Order Comment: LACIE CTOR TO SPECIFY Performed By: #### L 400.0001, M100.2200 ####[facility] [address] [place], [address] BACTERIA 3+ /hpf Normal None Seen [facility] Comment on above: Order Comment: LACIE CTOR TO SPECIFY Performed By: #### L 400.0001, M100.2200 ####[facility] [address] [place], [address] RBC 10-25 SEEN Normal 0-5 [facility] Comment on above: Order Comment: LACIE CTOR TO SPECIFY Performed By: #### L 400.0001, M100.2200 ####[facility] [address] [place], [address] WBC >100 SEEN Normal 0-5 [facility] Comment on above: Order Comment: LACIE CTOR TO SPECIFY Performed By: #### L 400.0001, M100.2200 ####[facility] [address] [place], [address] Mucus Ql (Urine sed) 0 SEEN Normal [facility] Comment on above: Order Comment: LACIE CTOR TO SPECIFY Performed By: #### L 400.0001, M100.2200 ####[facility] [address] [place], [address] Urine blood detectionOrdered By: Andre Ferreira on 07-29-2024 Urine Occult Blood 250 /ul High Negative [facility] Urine clarityOrdered By: Adama Ferreira on 07-29-2024 Clarity (U) Turbid Clear [facility] Urine color determinationOrd ered By: Andre Ferreira on 07-29-2024 Color (U) Yellow Yellow [facility] Urine cultureOrdered By: Adama Ferreira on 07-29-2024 Bacteria identified Cx Nom (U) Klebsiella oxytoca Abnormal [facility] Bacteria identified Cx Nom (U) Citrobacter freundii Abnormal [facility] Bacteria identified Cx Nom (U) Staphylococcus aureus Abnormal [facility] Urine glucose detectionOrder ed By: Andre Ferreira on 07-29-2024 Glucose Ql (U) 250 mg/dl High Normal [facility] Urine leukocyte esterase det ection by dipstickOrdered By: Andre Ferreira on 07-29-2024 Leukocyte esterase Test strip Ql (U) 500 /ul High Negative [facility] Urine pHOrdered By: Andre tyson on 07-29-2024 pH (U) 6.0 [pH] 5.0 - 8.0 [facility] Urine sediment bacteria coun t by microscopy (number/high power field)Ordered By: Andre Ferreira on 07-29-2024 Bacteria LM.HPF (Urine sed) [#/Area] 3 /[HPF] None Seen [facility] Urine specific gravity measu rementOrdered By: Andre Ferreira on 07-29-2024 Specific gravity (U) [Rel density] 1.015 1.002-1.030 [facility] Urine urobilinogen measureme ntOrdered By: Andre Ferreira on 07-29-2024 Urobilinogen Ql (U) Normal mg/dl Normal [facility] Urobilinogen Ql (U)Ordered B y: Adnre Ferreira on 07-29-2024 Urine Urobilinogen Normal mg/dl Normal [facility] White blood cell countOrdere d By: Andre Ferreira on 07-29-2024 Urine WBC >100 SEEN /hpf 0-5 [facility] White blood cell count >100 SEEN /hpf 0-5 [facility] aPTT Coag (PPP) [Time]Ordere d By: Andre Ferreira on 07-29-2024 aPTT Coag (Bld) [Time] 30.0 s 24.1-36.2 [facility] LDL, Directon 07-13-2024 Cholesterol in LDL [Mass/Vol] 114 mg/dL High 0-99 [facility] Comment on above: Result Comment: Perf ormed at: - [facility] [address] [id number] Director: Rayo Wilkinson PhD, Phone: [phone] Performed By: #### L 501.35469, L500.4100, L500.4050, L506.0400, L3300.4490, L100.0100, L501.9520, L501.9910 ####[facility] [address] [place], [address] COMMENT TNP Normal . [facility] Comment on above: Performed By: #### L 501.44488, L500.4100, L500.4050, L506.0400, L3300.4490, L100.0100, L501.9520, L501.9910 ####[facility] [address] [place], [address] Absolute lymphocyte countOrd ered By: Nathanael Cardona on 07-11-2024 Lymphocytes Auto (Unsp spec) [#/Vol] 2.11 10*3/uL 0.83-4.51 [facility] Absolute neutrophil countOrd ered By: Nathanael Cardona on 07-11-2024 Neutrophils (Bld) [#/Vol] 5.4 10*3/uL 2.0-7.7 [facility] Anion gap in Serum or Plasma Ordered By: Nathanael Cardona on 07-11-2024 Anion gap [Moles/Vol] 13 mmol/L - [facility] Automated lymphocyte count a s percentage of total leukocytesOrdered By: Nathanael Cardona on 07-11-2024 Lymphocytes/100 WBC Auto (Unsp spec) 23.9 % -41 [facility] BUN/creatinine ratioOrdered By: Nathanael Cardona on 07-11-2024 Urea nitrogen/Creatinine [Mass ratio] 15.1 mg/mg 10-20 [facility] Basophil percentageOrdered B y: Nathanael Cardona on 07-11-2024 Basophils/100 WBC (Bld) 0.8 % 0-1 [facility] Bilirubin, totalOrdered By: Nathanael Cardona on 07-11-2024 Bilirubin [Mass/Vol] 0.22 mg/dL 0.00-1.30 [facility] CBC W/Diff, Automatedon 06-28 Absolute Lymph 2.11 X10 3/uL Normal 0.83-4.51 [facility] Comment on above: Performed By: #### L 501.34902, L500.4100, L500.4050, L506.0400, L3300.4490, L100.0100, L501.9520, L501.9910 ####[facility] [address] [place], [address] Absolute Neut 5.4 X10 3/uL Normal 2.0-7.7 [facility] Comment on above: Performed By: #### L 501.32540, L500.4100, L500.4050, L506.0400, L3300.4490, L100.0100, L501.9520, L501.9910 ####[facility] [address] [place], [address] Basophils/100 WBC (Bld) 0.8 % Normal 0-1 [facility] Comment on above: Performed By: #### L 501.62647, L500.4100, L500.4050, L506.0400, L3300.4490, L100.0100, L501.9520, L501.9910 ####[facility] [address] [place], [address] Eosinophils/100 WBC (Bld) 3.7 % Normal 0-5 [facility] Comment on above: Performed By: #### L 501.77258, L500.4100, L500.4050, L506.0400, L3300.4490, L100.0100, L501.9520, L501.9910 ####[facility] [address] [place], [address] Erythrocyte distribution width (RBC) [Ratio] 16.9 % High 11.6-14.6 [facility] Comment on above: Performed By: #### L 501.60657, L500.4100, L500.4050, L506.0400, L3300.4490, L100.0100, L501.9520, L501.9910 ####[facility] [address] [place], [address] Hematocrit (Bld) [Volume fraction] 42.1 % Normal 40-54 [facility] Comment on above: Performed By: #### L 501.20548, L500.4100, L500.4050, L506.0400, L3300.4490, L100.0100, L501.9520, L501.9910 ####[facility] [address] [place], [address] Hemoglobin (Bld) [Mass/Vol] 13.6 g/dL Normal 13.0-16.5 [facility] Comment on above: Performed By: #### L 501.04675, L500.4100, L500.4050, L506.0400, L3300.4490, L100.0100, L501.9520, L501.9910 ####[facility] [address] [place], [address] IG% 0.800 Normal 0.0-0.9 [facility] Comment on above: Result Comment: IG% - Immature Granulocytes (promyelocytes, myelocytes andmetamyelocytes) > 1% indicates that a LEFT SHIFT is Present. Performed By: #### L 501.16005, L500.4100, L500.4050, L506.0400, L3300.4490, L100.0100, L501.9520, L501.9910 ####[facility] [address] [place], [address] Lymphocytes/100 WBC (Bld) 23.9 % Normal 19-41 [facility] Comment on above: Performed By: #### L 501.86668, L500.4100, L500.4050, L506.0400, L3300.4490, L100.0100, L501.9520, L501.9910 ####[facility] [address] [place], [address] MCH (RBC) [Entitic mass] 28.9 pg Normal 27.0-32.0 [facility] Comment on above: Performed By: #### L 501.69440, L500.4100, L500.4050, L506.0400, L3300.4490, L100.0100, L501.9520, L501.9910 ####[facility] [address] [place], [address] MCHC (RBC) [Mass/Vol] 32.3 g/dL Normal 32-[address] [facility] Comment on above: Performed By: #### L 501.65774, L500.4100, L500.4050, L506.0400, L3300.4490, L100.0100, L501.9520, L501.9910 ####[facility] [address] [place], [address] MCV (RBC) [Entitic vol] 89.4 fL Normal 80-94 [facility] Comment on above: Performed By: #### L 501.60687, L500.4100, L500.4050, L506.0400, L3300.4490, L100.0100, L501.9520, L501.9910 ####[facility] [address] [place], [address] Monocytes/100 WBC (Bld) 10.2 % High 0-10 [facility] Comment on above: Performed By: #### L 501.58870, L500.4100, L500.4050, L506.0400, L3300.4490, L100.0100, L501.9520, L501.9910 ####[facility] [address] [place], [address] Neutrophils/100 WBC (Bld) 60.6 % Normal 47-70 [facility] Comment on above: Performed By: #### L 501.59286, L500.4100, L500.4050, L506.0400, L3300.4490, L100.0100, L501.9520, L501.9910 ####[facility] [address] [place], [address] Nucleated RBC (Bld) [#/Vol] 0 10*3/uL Normal 0-5 [facility] Comment on above: Performed By: #### L 501.07900, L500.4100, L500.4050, L506.0400, L3300.4490, L100.0100, L501.9520, L501.9910 ####[facility] [address] [place], [address] Platelet mean volume (Bld) [Entitic vol] 9.4 fL Normal 6.2-12.0 [facility] Comment on above: Performed By: #### L 501.48382, L500.4100, L500.4050, L506.0400, L3300.4490, L100.0100, L501.9520, L501.9910 ####[facility] [address] [place], [address] Platelets (Bld) [#/Vol] 275 10*3/uL Normal 150-450 [facility] Comment on above: Performed By: #### L 501.21874, L500.4100, L500.4050, L506.0400, L3300.4490, L100.0100, L501.9520, L501.9910 ####[facility] [address] [place], [address] RBC (Bld) [#/Vol] 4.71 10*6/uL Normal 4.6-6.2 [facility] Comment on above: Performed By: #### L 501.01678, L500.4100, L500.4050, L506.0400, L3300.4490, L100.0100, L501.9520, L501.9910 ####[facility] [address] [place], [address] RDW SD 55.3 fl High 35.1-43.9 [facility] Comment on above: Performed By: #### L 501.28810, L500.4100, L500.4050, L506.0400, L3300.4490, L100.0100, L501.9520, L501.9910 ####[facility] [address] [place], [address] WBC (Bld) [#/Vol] 8.8 10*3/uL Normal 4.4-11.0 [facility] Comment on above: Performed By: #### L 501.61329, L500.4100, L500.4050, L506.0400, L3300.4490, L100.0100, L501.9520, L501.9910 ####[facility] [address] [place], [address] Calculated very low density lipoprotein (VLDL) cholesterol measurementOrdered By: Nathanael Cardona on 07-11-2024 Calculated very low density lipoprotein (VLDL) cholesterol measurement 64 mg/dL High 5-40 [facility] VLDL Cholesterol 64 mg/dL High 5-40 [facility] Carbon dioxide, total [Moles /volume] in Central venous bloodOrdered By: Nathanael Cardona on 07-11-2024 CO2 [Moles/Vol] 21.6 mmol/L 21.0-32.0 [facility] Chloride assayOrdered By: Dav Cardona on 07-11-2024 Chloride [Moles/Vol] 105 mmol/L 98-108 [facility] Cholesterol in LDL Direct as say [Mass/Vol]Ordered By: Nathanael Cardona on 07-11-2024 Cholesterol in LDL [Mass/Vol] 114 mg/dL High 0-99 [facility] Comment on above: Performed at: [facility] [address] [place], [place] [id number] Director: Rayo Wilkinson PhD, Phone: [phone] LDL Cholesterol Direct 114 mg/dL High 0-99 [facility] Comment on above: Performed at: [facility] [address] [place], [place] [id number] Director: Rayo Wilkinson PhD, Phone: [phone] Comprehensive Metabolic Prof ilon 07-11-2024 Albumin [Mass/Vol] 3.7 g/dL Normal 3.4-4.8 [facility] Comment on above: Performed By: #### L 501.39719, L500.4100, L500.4050, L506.0400, L3300.4490, L100.0100, L501.9520, L501.9910 ####[facility] [address] [place], [place], [id number] Albumin/Globulin [Mass ratio] 1.1 {ratio} Normal 0.9-2.4 [facility] Comment on above: Performed By: #### L 501.46636, L500.4100, L500.4050, L506.0400, L3300.4490, L100.0100, L501.9520, L501.9910 ####[facility] [address] [place], [place], [id number] ALK PHOS 114 U/L Normal 40-129 [facility] Comment on above: Performed By: #### L 501.31443, L500.4100, L500.4050, L506.0400, L3300.4490, L100.0100, L501.9520, L501.9910 ####[facility] [address] [place], [address] ALT [Catalytic activity/Vol] 36 U/L Normal <=46 [facility] Comment on above: Performed By: #### L 501.50166, L500.4100, L500.4050, L506.0400, L3300.4490, L100.0100, L501.9520, L501.9910 ####[facility] [address] [place], [address] AST [Catalytic activity/Vol] 32 U/L Normal <=37 [facility] Comment on above: Performed By: #### L 501.79067, L500.4100, L500.4050, L506.0400, L3300.4490, L100.0100, L501.9520, L501.9910 ####[facility] [address] [place], [address] Bilirubin [Mass/Vol] 0.22 mg/dL Normal 0.00-1.30 [facility] Comment on above: Performed By: #### L 501.78176, L500.4100, L500.4050, L506.0400, L3300.4490, L100.0100, L501.9520, L501.9910 ####[facility] [address] [place], [address] BUN/CRE 15.1 RATIO Normal 10-20 [facility] Comment on above: Performed By: #### L 501.84662, L500.4100, L500.4050, L506.0400, L3300.4490, L100.0100, L501.9520, L501.9910 ####[facility] [address] [place], [address] Calcium [Mass/Vol] 9.2 mg/dL Normal 7.6-11.0 [facility] Comment on above: Performed By: #### L 501.15858, L500.4100, L500.4050, L506.0400, L3300.4490, L100.0100, L501.9520, L501.9910 ####[facility] [address] [place], [address] Chloride [Moles/Vol] 105 mmol/L Normal 98-108 [facility] Comment on above: Performed By: #### L 501.68433, L500.4100, L500.4050, L506.0400, L3300.4490, L100.0100, L501.9520, L501.9910 ####[facility] [address] [place], [address] CO2 [Moles/Vol] 21.6 mmol/L Normal 21.0-32.0 [facility] Comment on above: Performed By: #### L 501.96777, L500.4100, L500.4050, L506.0400, L3300.4490, L100.0100, L501.9520, L501.9910 ####[facility] [address] [place], [address] Creatinine [Mass/Vol] 0.64 mg/dL Low 0.70-1.[address] [facility] Comment on above: Performed By: #### L 501.32318, L500.4100, L500.4050, L506.0400, L3300.4490, L100.0100, L501.9520, L501.9910 ####[facility] [address] [place], [address] GAP 13 Normal 5-15 [facility] Comment on above: Performed By: #### L 501.47483, L500.4100, L500.4050, L506.0400, L3300.4490, L100.0100, L501.9520, L501.9910 ####[facility] [address] [place], [address] GFR/1.73 sq M.predicted among non-blacks MDRD (S/P/Bld) [Vol rate/Area] 104 mL/min/{1.73_m2} Normal >60 [facility] Comment on above: Result Comment: mL/m in/1.73m2 CKD-EPI Creatinine Equation (2020) Performed By: #### L 501.79854, L500.4100, L500.4050, L506.0400, L3300.4490, L100.0100, L501.9520, L501.9910 ####[facility] [address] [place], [address] Globulin (S) [Mass/Vol] 3.5 g/dL Normal 2.2-4.2 [facility] Comment on above: Performed By: #### L 501.94118, L500.4100, L500.4050, L506.0400, L3300.4490, L100.0100, L501.9520, L501.9910 ####[facility] [address] [place], [address] Glucose [Mass/Vol] 91 mg/dL Normal 70-99 [facility] Comment on above: Performed By: #### L 501.88693, L500.4100, L500.4050, L506.0400, L3300.4490, L100.0100, L501.9520, L501.9910 ####[facility] [address] [place], [address] Potassium [Moles/Vol] 4.2 mmol/L Normal 3.3-5.[address] [facility] Comment on above: Performed By: #### L 501.48471, L500.4100, L500.4050, L506.0400, L3300.4490, L100.0100, L501.9520, L501.9910 ####[facility] [address] [place], [place], [address] Sodium [Moles/Vol] 139 mmol/L Normal 133-145 [facility] Comment on above: Performed By: #### L 501.43930, L500.4100, L500.4050, L506.0400, L3300.4490, L100.0100, L501.9520, L501.9910 ####[facility] [address] [place], [address] T PROT 7.2 g/dL Normal 5.9-8.4 [facility] Comment on above: Performed By: #### L 501.08638, L500.4100, L500.4050, L506.0400, L3300.4490, L100.0100, L501.9520, L501.9910 ####[facility] [address] [place], [address] Urea nitrogen [Mass/Vol] 10 mg/dL Normal 4-19 [facility] Comment on above: Performed By: #### L 501.03498, L500.4100, L500.4050, L506.0400, L3300.4490, L100.0100, L501.9520, L501.9910 ####[facility] [address] [place], [address] Eosinophil percentageOrdered By: Nathanael Cardona on 07-11-2024 Eosinophils/100 WBC (Bld) 3.7 % 0-5 [facility] Erythrocyte distribution wid th (RBC) [Ratio]Ordered By: Nathanael Cardona on 07-11-2024 Erythrocyte distribution width (RBC) [Entitic vol] 55.3 fL High 35.1-43.9 [facility] Erythrocyte distribution wid th ratioOrdered By: Nathanael Cardona on 07-11-2024 Erythrocyte distribution width (RBC) [Ratio] 16.9 % High 11.6-14.6 [facility] Erythrocyte distribution wid th standard deviationOrdered By: Nathanael Cardona on 07-11-2024 Erythrocyte distribution width (RBC) [Ratio] 55.3 fl High 35.1-43.9 [facility] Free T3on 07-11-2024 Free T3 [Mass/Vol] 2.0 pg/mL Low 2.18-3.98 [facility] Comment on above: Performed By: #### L 501.90536, L500.4100, L500.4050, L506.0400, L3300.4490, L100.0100, L501.9520, L501.9910 ####[facility] [address] [place], [place], [id number] Free C9Gmfgqon By: Nathanael bar on 07-11-2024 Free T3 [Mass/Vol] 2.0 pg/mL Low 2.18-3.98 [facility] Free Triiodothyronine (T3) pg/dL 2.0 pg/mL Low 2.18-3.98 [facility] GFR/1.73 sq M.predicted elias g non-blacks MDRD (S/P/Bld) [Vol rate/Area]Ordered By: Nathanael Cardona on 07-11-2024 Estimated GFR (MDRD) Non-Af Amer 104 >60 [facility] Comment on above: mL/min/1.73m2 CKD-EP I Creatinine Equation (2020) Glomerular filtration rate ( GFR) estimation/1.73 sq m using serum, plasma, or whole bOrdered By: Nathanael Cardona on 07-11-2024 GFR/1.73 sq M.predicted among non-blacks MDRD (S/P/Bld) [Vol rate/Area] 104 mL/min/{1.73_m2} >60 [facility] Comment on above: mL/min/1.73m2 CKD-EP I Creatinine Equation (2020) Hematocrit Auto (Bld) [Volum e fraction]Ordered By: Nathanael Cardona on 07-11-2024 Hematocrit (Bld) [Volume fraction] 42.1 % 40-54 [facility] Hemoglobin measurementOrdere d By: Nathanael Cardona on 07-11-2024 Hemoglobin (Bld) [Mass/Vol] 13.6 g/dL 13.0-16.5 [facility] Immature granulocytes/100 WB C Auto (Bld)Ordered By: Nathanael Cardona on 07-11-2024 Immature granulocytes/100 WBC (Bld) 0.800 % 0.0-0.9 [facility] Comment on above: IG% - Immature Granu locytes (promyelocytes, myelocytes and metamyelocytes) > 1% indicates that a LEFT SHIFT is Present. LDL calc ser/plasOrdered By: Nathanael Cardona on 07-11-2024 Cholesterol in LDL [Mass/Vol] 88 mg/dL [facility] Comment on above: Gzhmvdobbm=946-906 m g/dL & Higher Xanq=931 mg/dL or greater LDL Cholesterol, Calculated 88 mg/dL [facility] Comment on above: Vghobnsuig=569-302 m g/dL & Higher Qvky=185 mg/dL or greater Laboratory - Chemistry and C hemistry - challengeOrdered By: Nathanael Cardona on 07-11-2024 AST [Catalytic activity/Vol] 32 U/L <38 [facility] Laboratory - Miscellaneous t estsOrdered By: Nathanael Cardona on 07-11-2024 Service comment (Unsp spec) [Interp] TNP [facility] Comment on above: Test not performed Lipid Profileon 07-11-2024 CHOL:HDL 5.07 Normal [facility] Comment on above: Performed By: #### L 501.94243, L500.4100, L500.4050, L506.0400, L3300.4490, L100.0100, L501.9520, L501.9910 ####[facility] [address] [place], [place], [address] Cholesterol [Mass/Vol] 189 mg/dL Normal <=200 [facility] Comment on above: Result Comment: Chol esterol level, Desirable <200 mg/dLBorderline high cholesterol 200-239 mg/dLHigh cholesterol >=240 mg/dLRecommendations of the NCEP Adult Treatment Panel for thefollowing risk-cutoff thresholds for the [place] [facility]white [facility] centerulation. Performed By: #### L 501.13500, L500.4100, L500.4050, L506.0400, L3300.4490, L100.0100, L501.9520, L501.9910 ####[facility] [address] [place], [address] Cholesterol in HDL [Mass/Vol] 37 mg/dL Low [facility] Comment on above: Result Comment: Lilly onal Cholesterol Education Program (NCEP) guidelines:<40 mg/dL: Low HDL-cholesterol (major risk factor for CHD)>= 60 mg/dL: High HDL-cholesterol (negative risk factor forCHD)HDL-cholesterol is affected by a number of factors, e.g.smoking, exercise, hormones, sex and age. Performed By: #### L 501.16281, L500.4100, L500.4050, L506.0400, L3300.4490, L100.0100, L501.9520, L501.9910 ####[facility] [address] [place], [address] Cholesterol in LDL [Mass/Vol] 88 mg/dL Normal [facility] Comment on above: Result Comment: Bord whubpf=656-806 mg/dL Higher Udvu=417 mg/dL or greater Performed By: #### L 501.82262, L500.4100, L500.4050, L506.0400, L3300.4490, L100.0100, L501.9520, L501.9910 ####[facility] [address] [place], [address] Cholesterol in VLDL [Mass/Vol] 64 mg/dL High 5-40 [facility] Comment on above: Performed By: #### L 501.20291, L500.4100, L500.4050, L506.0400, L3300.4490, L100.0100, L501.9520, L501.9910 ####[facility] [address] [place], [address] Triglyceride [Mass/Vol] 318 mg/dL High [facility] Comment on above: Result Comment: The drugs N-Acetylcysteine and Metamizole may falselydepress this assay.Normal range: <150 mg/dLBorderline High: 150-199 mg/dLHigh: 200-499 mg/dLVery High: >500 mg/dL Performed By: #### L 501.35970, L500.4100, L500.4050, L506.0400, L3300.4490, L100.0100, L501.9520, L501.9910 ####[facility] [address] [place], [address] Lymphocytes Auto (Unsp spec) [#/Vol]Ordered By: Nathanael Cardona on 07-11-2024 Lymphocytes (Bld) [#/Vol] 2.11 10*3/uL 0.83-4.51 [facility] Lymphocytes/100 WBC Auto (Un sp spec)Ordered By: Nathanael Cardona on 07-11-2024 Lymphocytes/100 WBC (Bld) 23.9 % 19-41 [facility] MCV (mean corpuscular volume ) determinationOrdered By: Nathanael Cardona on 07-11-2024 MCV (RBC) [Entitic vol] 89.4 fL 80-94 [facility] Mean corpuscular hemoglobin (MCH) determinationOrdered By: Nathanael Cardona on 07-11-2024 MCH (RBC) [Entitic mass] 28.9 pg 27.0-32.0 [facility] Mean corpuscular hemoglobin concentration (MCHC) determinationOrdered By: Nathanael Cardona on 07-11-2024 MCHC (RBC) [Mass/Vol] 32.3 g/dL 32-[address] [facility] Mean platelet volume determi nationOrdered By: Nathanael Cardona on 07-11-2024 Platelet mean volume (Bld) [Entitic vol] 9.4 fL 6.2-12.0 [facility] Monocyte percentageOrdered B y: Nathanael Cardona on 07-11-2024 Monocytes/100 WBC (Bld) 10.2 % High 0-10 [facility] Neutrophil percentageOrdered By: Nathanael Cardona on 07-11-2024 Neutrophils/100 WBC (Bld) 60.6 % 47-70 [facility] No Panel InformationOrdered By: Nathanael Cardona on 07-11-2024 32 U/L <38 [facility] Nucleated red blood cell per centageOrdered By: Nathanael Cardona on 07-11-2024 Nucleated RBC/100 WBC (Bld) [Ratio] 0 % 0-5 [facility] PSA, total screeningOrdered By: Nathanael Cardona on 07-11-2024 Prostate Specific Antigen Screen 3.78 ng/mL 0.02-4.00 [facility] Comment on above: This test was perfor med using the [employer] tPSA method. Measured values of a patient sample can vary depending on the testing procedure used. PSA values determined on patient samples by different testing procedures cannot be used interchangeably. If there is a change in PSA assays while monitoring therapy, sequential testing should be performed to confirm baseline values. PSA,Total - Annual Screenon 07-11-2024 PSA,TOT SCREEN 3.78 ng/mL Normal 0.02-4.00 [facility] Comment on above: Result Comment: This test was performed using the [employer] tPSAmethod. Measured values of a patient??sample can varydepending on the testing procedure used. PSA valuesdetermined on patient samples by different testingprocedures cannot be used interchangeably. If there is achange in PSA assays while monitoring therapy, sequentialtesting should be performed to confirm baseline values. Performed By: #### L 501.87529, L500.4100, L500.4050, L506.0400, L3300.4490, L100.0100, L501.9520, L501.9910 ####[facility] [address] [place], [address] Platelet countOrdered By: Dav Cardona on 07-11-2024 Platelets (Bld) [#/Vol] 275 10*3/uL 150-450 [facility] Potassium (Unsp spec) [Mass/ Vol]Ordered By: Nathanael Cardona on 07-11-2024 Potassium [Moles/Vol] 4.2 mmol/L 3.3-5.[address] [facility] Potassium measurement (mass/ volume)Ordered By: Nathanael Cardona on 07-11-2024 Potassium (Unsp spec) [Mass/Vol] 4.2 mmol/L 3.3-5.1 [facility] RBC Auto (Bld) [#/Vol]Ordere d By: Nathanael Cardona on 07-11-2024 RBC (Bld) [#/Vol] 4.71 10*6/uL 4.6-6.2 [facility] Screening total cholesterol/ high density lipoprotein (HDL) cholesterol ratioOrdered By: Nathanael Cardona on 07-11-2024 Cholesterol.total/Radha sterol in HDL [Mass ratio] 5.07 {ratio} [facility] Serum creatinine measurement (mass/volume)Ordered By: Nathanael Cardona on 07-11-2024 Creatinine [Mass/Vol] 0.64 mg/dL Low 0.70-1.[address] [facility] Serum globulin measurementOr dered By: Nathanael Cardona on 07-11-2024 Globulin (S) [Mass/Vol] 3.5 g/dL 2.2-4.2 [facility] Serum glucose measurement (m ass/volume)Ordered By: Nathanael Cardona on 07-11-2024 Glucose [Mass/Vol] 91 mg/dL 70-99 [facility] Serum or plasma alanine orozco otransferase (ALT) measurementOrdered By: Nathanael Cardona 07-11-2024 ALT [Catalytic activity/Vol] 36 U/L <47 [facility] Serum or plasma albumin marlyn urement (mass/volume)Ordered By: Nathanael Cardona 07-11-2024 Albumin [Mass/Vol] 3.7 g/dL 3.4-4.8 [facility] Serum or plasma albumin/glob ulin mass ratioOrdered By: Nathanael Cardona 07-11-2024 Albumin/Globulin [Mass ratio] 1.1 {ratio} 0.9-2.4 [facility] Serum or plasma alkaline marisol sphatase measurementOrdered By: Nathanael Cardona 07-11-2024 ALP [Catalytic activity/Vol] 114 U/L 40-129 [facility] Serum or plasma calcium marlyn urement (mass/volume)Ordered By: Nathanael Cardona 07-11-2024 Calcium [Mass/Vol] 9.2 mg/dL 7.6-11.0 [facility] Serum or plasma cholesterol in HDL measurement (mass/volume)Ordered By: Nathanael Cardona on 07-11-2024 Cholesterol in HDL [Mass/Vol] 37 mg/dL Low >40 [facility] Comment on above: National Cholesterol Education Program (NCEP) guidelines:<40 mg/dL: Low HDL-cholesterol (major risk factor for CHD)>= 60 mg/dL: High HDL-cholesterol (negative risk factor for CHD)HDL-cholesterol is affected by a number of factors, e.g. smoking, exercise, hormones, sex and age. Serum or plasma cholesterol measurement (mass/volume)Ordered By: Nathanael Cardona on 07-11-2024 Cholesterol [Mass/Vol] 189 mg/dL <201 [facility] Comment on above: Cholesterol level, D esirable <200 mg/dLBorderline high cholesterol 200-239 mg/dLHigh cholesterol >=240 mg/dLRecommendations of the NCEP Adult Treatment Panel for the following risk-cutoff thresholds for the [place] population. Serum or plasma urea nitroge n measurement (mass/volume)Ordered By: Nathanael Cardona on 07-11-2024 Urea nitrogen [Mass/Vol] 10 mg/dL 4-19 [facility] Service comment (Unsp spec) [Interp]Ordered By: Nathanael Cardona on 07-11-2024 LDL Cholesterol Direct Comment TNP [facility] Comment on above: Test not performed Sodium levelOrdered By: Amol Cardona on 07-11-2024 Sodium [Moles/Vol] 139 mmol/L 133-145 [facility] T4 Free Directon 07-11-2024 T4 FREE DIRECT 1.00 ng/dL Normal 0.76-1.46 [facility] Comment on above: Performed By: #### L 501.05779, L500.4100, L500.4050, L506.0400, L3300.4490, L100.0100, L501.9520, L501.9910 ####[facility] [address] [place], [address] T4 freeOrdered By: Nathanael bar on 07-11-2024 Free T4 [Mass/Vol] 1.00 ng/dL 0.76-1.46 [facility] TSH DL <= 0.005 mIU/L QnOrde red By: Nathanael Cardona on 07-11-2024 Thyroid Stimulating Hormone (TSH) 23.100 uIU/mL High 0.300-4.200 [facility] TSH Qn 23.100 uIU/mL High 0.300-4.200 [facility] Thyroid Stim Hormone (TSH)on 07-11-2024 TSH 23.100 uIU/mL High 0.300-4.200 [facility] Comment on above: Performed By: #### L 501.73268, L500.4100, L500.4050, L506.0400, L3300.4490, L100.0100, L501.9520, L501.9910 ####[facility] [address] [place], [place], [id number] Total proteinOrdered By: Kaleb Cardona on 07-11-2024 Protein [Mass/Vol] 7.2 g/dL 5.9-8.4 [facility] Triglycerides measurementOrd ered By: Nathanael Cardona on 07-11-2024 Triglyceride [Mass/Vol] 318 mg/dL High <199 [facility] Comment on above: The drugs N-Acetylcy steine and Metamizole may falsely depress this assay. Normal range: <150 mg/dLBorderline High: 150-199 mg/dLHigh: 200-499 mg/dLVery High: >500 mg/dL White blood cell (WBC) count Ordered By: Nathanael Cardona on 07-11-2024 WBC (Bld) [#/Vol] 8.8 10*3/uL 4.4-11.0 [facility] Basic Metabolic Profile (BMP )on 06-17-2024 BUN Normal 4-19 [facility] Comment on above: Result Comment: Canc elled via OM: Order cancelled - Patient discharged Performed By: #### L 500.2500, L100.0100 ####[facility] [address] [place], [place], [id number] BUN/CRE Normal 10-20 [facility] Comment on above: Result Comment: Canc elled via OM: Order cancelled - Patient discharged Performed By: #### L 500.2500, L100.0100 ####[facility] [address] [place], [address] Calcium Normal 7.6-11.0 [facility] Comment on above: Result Comment: Canc elled via OM: Order cancelled - Patient discharged Performed By: #### L 500.2500, L100.0100 ####[facility] [address] [place], [address] CL Normal 98-108 [facility] Comment on above: Result Comment: Canc elled via OM: Order cancelled - Patient discharged Performed By: #### L 500.2500, L100.0100 ####[facility] [address] [place], [address] CO2 Normal 21.0-32.0 [facility] Comment on above: Result Comment: Canc elled via OM: Order cancelled - Patient discharged Performed By: #### L 500.2500, L100.0100 ####[facility] [address] [place], [address] CREAT,SERUM Normal 0.70-1.20 [facility] Comment on above: Result Comment: Canc elled via OM: Order cancelled - Patient discharged Performed By: #### L 500.2500, L100.0100 ####[facility] [address] [place], [address] eGFR Normal >60 [facility] Comment on above: Result Comment: Canc elled via OM: Order cancelled - Patient discharged Performed By: #### L 500.2500, L100.0100 ####[facility] [address] [place], [address] GAP Normal 5-15 [facility] Comment on above: Result Comment: Canc elled via OM: Order cancelled - Patient discharged Performed By: #### L 500.2500, L100.0100 ####[facility] [address] [place], [address] GLU Normal 70-99 [facility] Comment on above: Result Comment: Canc elled via OM: Order cancelled - Patient discharged Performed By: #### L 500.2500, L100.0100 ####[facility] [address] [place], [address] Potassium Normal 3.3-5.1 [facility] Comment on above: Result Comment: Canc elled via OM: Order cancelled - Patient discharged Performed By: #### L 500.2500, L100.0100 ####[facility] [address] [place], [address] Basic Metabolic Profile (BMP) Normal 133-145 [facility] Comment on above: Result Comment: Canc elled via OM: Order cancelled - Patient discharged Performed By: #### L 500.2500, L100.0100 ####[facility] [address] [place], [address] CBC W/Diff, Automatedon 03-2 Absolute Neut Normal 2.0-7.7 [facility] Comment on above: Result Comment: Canc elled via OM: Order cancelled - Patient discharged Performed By: #### L 500.2500, L100.0100 ####[facility] [address] [place], [address] HCT Normal 40-54 [facility] Comment on above: Result Comment: Canc elled via OM: Order cancelled - Patient discharged Performed By: #### L 500.2500, L100.0100 ####[facility] [address] [place], [address] HGB Normal 13.0-16.5 [facility] Comment on above: Result Comment: Canc elled via OM: Order cancelled - Patient discharged Performed By: #### L 500.2500, L100.0100 ####[facility] [address] [place], [address] MCH Normal 27.0-32.0 [facility] Comment on above: Result Comment: Canc elled via OM: Order cancelled - Patient discharged Performed By: #### L 500.2500, L100.0100 ####[facility] [address] [place], [address] MCHC Normal 32-36 [facility] Comment on above: Result Comment: Canc elled via OM: Order cancelled - Patient discharged Performed By: #### L 500.2500, L100.0100 ####[facility] [address] [place], [address] MCV Normal 80-94 [facility] Comment on above: Result Comment: Canc elled via OM: Order cancelled - Patient discharged Performed By: #### L 500.2500, L100.0100 ####[facility] [address] [place], [address] NEUT% Normal 47-70 [facility] Comment on above: Result Comment: Canc elled via OM: Order cancelled - Patient discharged Performed By: #### L 500.2500, L100.0100 ####[facility] [address] [place], [address] PLT Normal 150-450 [facility] Comment on above: Result Comment: Canc elled via OM: Order cancelled - Patient discharged Performed By: #### L 500.2500, L100.0100 ####[facility] [address] [place], [address] RBC Normal 4.6-6.2 [facility] Comment on above: Result Comment: Canc elled via OM: Order cancelled - Patient discharged Performed By: #### L 500.2500, L100.0100 ####[facility] [address] [place], [address] RDW CV Normal 11.6-14.6 [facility] Comment on above: Result Comment: Canc elled via OM: Order cancelled - Patient discharged Performed By: #### L 500.2500, L100.0100 ####[facility] [address] [place], [address] RDW SD Normal 35.1-43.9 [facility] Comment on above: Result Comment: Canc elled via OM: Order cancelled - Patient discharged Performed By: #### L 500.2500, L100.0100 ####[facility] [address] [place], [address] WBC Normal 4.4-11.0 [facility] Comment on above: Result Comment: Canc elled via OM: Order cancelled - Patient discharged Performed By: #### L 500.2500, L100.0100 ####[facility] [address] [place], [address] Basic Metabolic Profile (BMP )on 06-16-2024 BUN Normal 4-19 [facility] Comment on above: Result Comment: Canc elled via OM: Order cancelled - Patient discharged Performed By: #### L 500.2500, L100.0100 ####[facility] [address] [place], [address] BUN/CRE Normal 10-20 [facility] Comment on above: Result Comment: Canc elled via OM: Order cancelled - Patient discharged Performed By: #### L 500.2500, L100.0100 ####[facility] [address] [place], [address] Calcium Normal 7.6-11.0 [facility] Comment on above: Result Comment: Canc elled via OM: Order cancelled - Patient discharged Performed By: #### L 500.2500, L100.0100 ####[facility] [address] [place], [address] CL Normal 98-108 [facility] Comment on above: Result Comment: Canc elled via OM: Order cancelled - Patient discharged Performed By: #### L 500.2500, L100.0100 ####[facility] [address] [place], [address] CO2 Normal 21.0-32.0 [facility] Comment on above: Result Comment: Canc elled via OM: Order cancelled - Patient discharged Performed By: #### L 500.2500, L100.0100 ####[facility] [address] [place], [address] CREAT,SERUM Normal 0.70-1.20 [facility] Comment on above: Result Comment: Canc elled via OM: Order cancelled - Patient discharged Performed By: #### L 500.2500, L100.0100 ####[facility] [address] [place], [address] eGFR Normal >60 [facility] Comment on above: Result Comment: Canc elled via OM: Order cancelled - Patient discharged Performed By: #### L 500.2500, L100.0100 ####[facility] [address] [place], [address] GAP Normal 5-15 [facility] Comment on above: Result Comment: Canc elled via OM: Order cancelled - Patient discharged Performed By: #### L 500.2500, L100.0100 ####[facility] [address] [place], [address] GLU Normal 70-99 [facility] Comment on above: Result Comment: Canc elled via OM: Order cancelled - Patient discharged Performed By: #### L 500.2500, L100.0100 ####[facility] [address] [place], [address] Potassium Normal 3.3-5.1 [facility] Comment on above: Result Comment: Canc elled via OM: Order cancelled - Patient discharged Performed By: #### L 500.2500, L100.0100 ####[facility] [address] [place], [address] Basic Metabolic Profile (BMP) Normal 133-145 [facility] Comment on above: Result Comment: Canc elled via OM: Order cancelled - Patient discharged Performed By: #### L 500.2500, L100.0100 ####[facility] [address] [place], [address] CBC W/Diff, Automatedon -2 0-2024 Absolute Neut Normal 2.0-7.7 [facility] Comment on above: Result Comment: Canc elled via OM: Order cancelled - Patient discharged Performed By: #### L 500.2500, L100.0100 ####[facility] [address] [place], [address] HCT Normal 40-54 [facility] Comment on above: Result Comment: Canc elled via OM: Order cancelled - Patient discharged Performed By: #### L 500.2500, L100.0100 ####[facility] [address] [place], [address] HGB Normal 13.0-16.5 [facility] Comment on above: Result Comment: Canc elled via OM: Order cancelled - Patient discharged Performed By: #### L 500.2500, L100.0100 ####[facility] [address] [place], [address] MCH Normal 27.0-32.0 [facility] Comment on above: Result Comment: Canc elled via OM: Order cancelled - Patient discharged Performed By: #### L 500.2500, L100.0100 ####[facility] [address] [place], [address] MCHC Normal 32-36 [facility] Comment on above: Result Comment: Canc elled via OM: Order cancelled - Patient discharged Performed By: #### L 500.2500, L100.0100 ####[facility] [address] [place], [address] MCV Normal 80-94 [facility] Comment on above: Result Comment: Canc elled via OM: Order cancelled - Patient discharged Performed By: #### L 500.2500, L100.0100 ####[facility] [address] [place], [address] NEUT% Normal 47-70 [facility] Comment on above: Result Comment: Canc elled via OM: Order cancelled - Patient discharged Performed By: #### L 500.2500, L100.0100 ####[facility] [address] [place], [address] PLT Normal 150-450 [facility] Comment on above: Result Comment: Canc elled via OM: Order cancelled - Patient discharged Performed By: #### L 500.2500, L100.0100 ####[facility] [address] [place], [address] RBC Normal 4.6-6.2 [facility] Comment on above: Result Comment: Canc elled via OM: Order cancelled - Patient discharged Performed By: #### L 500.2500, L100.0100 ####[facility] [address] [place], [address] RDW CV Normal 11.6-14.6 [facility] Comment on above: Result Comment: Canc elled via OM: Order cancelled - Patient discharged Performed By: #### L 500.2500, L100.0100 ####[facility] [address] [place], [address] RDW SD Normal 35.1-43.9 [facility] Comment on above: Result Comment: Canc elled via OM: Order cancelled - Patient discharged Performed By: #### L 500.2500, L100.0100 ####[facility] [address] [place], [address] WBC Normal 4.4-11.0 [facility] Comment on above: Result Comment: Canc elled via OM: Order cancelled - Patient discharged Performed By: #### L 500.2500, L100.0100 ####[facility] [address] [place], [address] Basic Metabolic Profile (BMP )on 06-15-2024 BUN Normal -19 [facility] Comment on above: Result Comment: Canc elled via OM: Order cancelled - Patient discharged Performed By: #### L 100.0100, L500.2500 ####[facility] [address] [place], [address] BUN/CRE Normal -20 [facility] Comment on above: Result Comment: Canc elled via OM: Order cancelled - Patient discharged Performed By: #### L 100.0100, L500.2500 ####[facility] [address] [place], [address] Calcium Normal 7.6-11.0 [facility] Comment on above: Result Comment: Canc elled via OM: Order cancelled - Patient discharged Performed By: #### L 100.0100, L500.2500 ####[facility] [address] [place], [address] CL Normal 98-108 [facility] Comment on above: Result Comment: Canc elled via OM: Order cancelled - Patient discharged Performed By: #### L 100.0100, L500.2500 ####[facility] [address] [place], [address] CO2 Normal 21.0-32.0 [facility] Comment on above: Result Comment: Canc elled via OM: Order cancelled - Patient discharged Performed By: #### L 100.0100, L500.2500 ####[facility] [address] [place], [address] CREAT,SERUM Normal 0.70-1.20 [facility] Comment on above: Result Comment: Canc elled via OM: Order cancelled - Patient discharged Performed By: #### L 100.0100, L500.2500 ####[facility] [address] [place], [address] eGFR Normal >60 [facility] Comment on above: Result Comment: Canc elled via OM: Order cancelled - Patient discharged Performed By: #### L 100.0100, L500.2500 ####[facility] [address] [place], [address] GAP Normal 5-15 [facility] Comment on above: Result Comment: Canc elled via OM: Order cancelled - Patient discharged Performed By: #### L 100.0100, L500.2500 ####[facility] [address] [place], [address] GLU Normal 70-99 [facility] Comment on above: Result Comment: Canc elled via OM: Order cancelled - Patient discharged Performed By: #### L 100.0100, L500.2500 ####[facility] [address] [place], [address] Potassium Normal 3.3-5.1 [facility] Comment on above: Result Comment: Canc elled via OM: Order cancelled - Patient discharged Performed By: #### L 100.0100, L500.2500 ####[facility] [address] [place], [address] Basic Metabolic Profile (BMP) Normal 133-145 [facility] Comment on above: Result Comment: Canc elled via OM: Order cancelled - Patient discharged Performed By: #### L 100.0100, L500.2500 ####[facility] [address] [place], [address] CBC W/Diff, Automatedon 03- Absolute Neut Normal 2.0-7.7 [facility] Comment on above: Result Comment: Canc elled via OM: Order cancelled - Patient discharged Performed By: #### L 100.0100, L500.2500 ####[facility] [address] [place], [address] HCT Normal 40-54 [facility] Comment on above: Result Comment: Canc elled via OM: Order cancelled - Patient discharged Performed By: #### L 100.0100, L500.2500 ####[facility] [address] [place], [address] HGB Normal 13.0-16.5 [facility] Comment on above: Result Comment: Canc elled via OM: Order cancelled - Patient discharged Performed By: #### L 100.0100, L500.2500 ####[facility] [address] [place], [address] MCH Normal 27.0-32.0 [facility] Comment on above: Result Comment: Canc elled via OM: Order cancelled - Patient discharged Performed By: #### L 100.0100, L500.2500 ####[facility] [address] [place], [address] MCHC Normal 32-36 [facility] Comment on above: Result Comment: Canc elled via OM: Order cancelled - Patient discharged Performed By: #### L 100.0100, L500.2500 ####[facility] [address] [place], [address] MCV Normal 80-94 [facility] Comment on above: Result Comment: Canc elled via OM: Order cancelled - Patient discharged Performed By: #### L 100.0100, L500.2500 ####[facility] [address] [place], [address] NEUT% Normal 47-70 [facility] Comment on above: Result Comment: Canc elled via OM: Order cancelled - Patient discharged Performed By: #### L 100.0100, L500.2500 ####[facility] [address] [place], [address] PLT Normal 150-450 [facility] Comment on above: Result Comment: Canc elled via OM: Order cancelled - Patient discharged Performed By: #### L 100.0100, L500.2500 ####[facility] [address] [place], [address] RBC Normal 4.6-6.2 [facility] Comment on above: Result Comment: Canc elled via OM: Order cancelled - Patient discharged Performed By: #### L 100.0100, L500.2500 ####[facility] [address] [place], [address] RDW CV Normal 11.6-14.6 [facility] Comment on above: Result Comment: Canc elled via OM: Order cancelled - Patient discharged Performed By: #### L 100.0100, L500.2500 ####[facility] [address] [place], [address] RDW SD Normal 35.1-43.9 [facility] Comment on above: Result Comment: Canc elled via OM: Order cancelled - Patient discharged Performed By: #### L 100.0100, L500.2500 ####[facility] [address] [place], [address] WBC Normal 4.4-11.0 [facility] Comment on above: Result Comment: Canc elled via OM: Order cancelled - Patient discharged Performed By: #### L 100.0100, L500.2500 ####[facility] [address] [place], [address] Basic Metabolic Profile (BMP )on 06-14-2024 BUN Normal 4-19 [facility] Comment on above: Result Comment: Canc elled via OM: Order cancelled - Patient discharged Performed By: #### L 500.2500, L100.0100 ####[facility] [address] [place], [address] BUN/CRE Normal 10-20 [facility] Comment on above: Result Comment: Canc elled via OM: Order cancelled - Patient discharged Performed By: #### L 500.2500, L100.0100 ####[facility] [address] [place], [address] Calcium Normal 7.6-11.0 [facility] Comment on above: Result Comment: Canc elled via OM: Order cancelled - Patient discharged Performed By: #### L 500.2500, L100.0100 ####[facility] [address] [place], [address] CL Normal 98-108 [facility] Comment on above: Result Comment: Canc elled via OM: Order cancelled - Patient discharged Performed By: #### L 500.2500, L100.0100 ####[facility] [address] [place], [address] CO2 Normal 21.0-32.0 [facility] Comment on above: Result Comment: Canc elled via OM: Order cancelled - Patient discharged Performed By: #### L 500.2500, L100.0100 ####[facility] [address] [place], [address] CREAT,SERUM Normal 0.70-1.20 [facility] Comment on above: Result Comment: Canc elled via OM: Order cancelled - Patient discharged Performed By: #### L 500.2500, L100.0100 ####[facility] [address] [place], [address] eGFR Normal >60 [facility] Comment on above: Result Comment: Canc elled via OM: Order cancelled - Patient discharged Performed By: #### L 500.2500, L100.0100 ####[facility] [address] [place], [address] GAP Normal 5-15 [facility] Comment on above: Result Comment: Canc elled via OM: Order cancelled - Patient discharged Performed By: #### L 500.2500, L100.0100 ####[facility] [address] [place], [address] GLU Normal 70-99 [facility] Comment on above: Result Comment: Canc elled via OM: Order cancelled - Patient discharged Performed By: #### L 500.2500, L100.0100 ####[facility] [address] [place], [address] Potassium Normal 3.3-5.1 [facility] Comment on above: Result Comment: Canc elled via OM: Order cancelled - Patient discharged Performed By: #### L 500.2500, L100.0100 ####[facility] [address] [place], [address] Basic Metabolic Profile (BMP) Normal 133-145 [facility] Comment on above: Result Comment: Canc elled via OM: Order cancelled - Patient discharged Performed By: #### L 500.2500, L100.0100 ####[facility] [address] [place], [address] CBC W/Diff, Automatedon 03-1 Absolute Neut Normal 2.0-7.7 [facility] Comment on above: Result Comment: Canc elled via OM: Order cancelled - Patient discharged Performed By: #### L 500.2500, L100.0100 ####[facility] [address] [place], [address] HCT Normal 40-54 [facility] Comment on above: Result Comment: Canc elled via OM: Order cancelled - Patient discharged Performed By: #### L 500.2500, L100.0100 ####[facility] [address] [place], [address] HGB Normal 13.0-16.5 [facility] Comment on above: Result Comment: Canc elled via OM: Order cancelled - Patient discharged Performed By: #### L 500.2500, L100.0100 ####[facility] [address] [place], [address] MCH Normal 27.0-32.0 [facility] Comment on above: Result Comment: Canc elled via OM: Order cancelled - Patient discharged Performed By: #### L 500.2500, L100.0100 ####[facility] [address] [place], [address] MCHC Normal 32-36 [facility] Comment on above: Result Comment: Canc elled via OM: Order cancelled - Patient discharged Performed By: #### L 500.2500, L100.0100 ####[facility] [address] [place], [address] MCV Normal 80-94 [facility] Comment on above: Result Comment: Canc elled via OM: Order cancelled - Patient discharged Performed By: #### L 500.2500, L100.0100 ####[facility] [address] [place], [address] NEUT% Normal 47-70 [facility] Comment on above: Result Comment: Canc elled via OM: Order cancelled - Patient discharged Performed By: #### L 500.2500, L100.0100 ####[facility] [address] [place], [address] PLT Normal 150-450 [facility] Comment on above: Result Comment: Canc elled via OM: Order cancelled - Patient discharged Performed By: #### L 500.2500, L100.0100 ####[facility] [address] [place], [address] RBC Normal 4.6-6.2 [facility] Comment on above: Result Comment: Canc elled via OM: Order cancelled - Patient discharged Performed By: #### L 500.2500, L100.0100 ####[facility] [address] [place], [address] RDW CV Normal 11.6-14.6 [facility] Comment on above: Result Comment: Canc elled via OM: Order cancelled - Patient discharged Performed By: #### L 500.2500, L100.0100 ####[facility] [address] [place], [address] RDW SD Normal 35.1-43.9 [facility] Comment on above: Result Comment: Canc elled via OM: Order cancelled - Patient discharged Performed By: #### L 500.2500, L100.0100 ####[facility] [address] [place], [address] WBC Normal 4.4-11.0 [facility] Comment on above: Result Comment: Canc elled via OM: Order cancelled - Patient discharged Performed By: #### L 500.2500, L100.0100 ####[facility] [address] [place], [address] Culture, Blood (WB)on 2024 CUB Blood cultures x2, from two different sites No growth in 5 days. Normal [facility] Comment on above: Performed By: #### M 200.1000 ####[facility] [address] [place], [address] Basic Metabolic Profile (BMP )on 06-13-2024 BUN Normal 4-19 [facility] Comment on above: Result Comment: Canc elled via OM: Order cancelled - Patient discharged Performed By: #### L 500.2500, L100.0100 ####[facility] [address] [place], [address] BUN/CRE Normal 10-20 [facility] Comment on above: Result Comment: Canc elled via OM: Order cancelled - Patient discharged Performed By: #### L 500.2500, L100.0100 ####[facility] [address] [place], [address] Calcium Normal 7.6-11.0 [facility] Comment on above: Result Comment: Canc elled via OM: Order cancelled - Patient discharged Performed By: #### L 500.2500, L100.0100 ####[facility] [address] [place], [address] CL Normal 98-108 [facility] Comment on above: Result Comment: Canc elled via OM: Order cancelled - Patient discharged Performed By: #### L 500.2500, L100.0100 ####[facility] [address] [place], [address] CO2 Normal 21.0-32.0 [facility] Comment on above: Result Comment: Canc elled via OM: Order cancelled - Patient discharged Performed By: #### L 500.2500, L100.0100 ####[facility] [address] [place], [address] CREAT,SERUM Normal 0.70-1.20 [facility] Comment on above: Result Comment: Canc elled via OM: Order cancelled - Patient discharged Performed By: #### L 500.2500, L100.0100 ####[facility] [address] [place], [address] eGFR Normal >60 [facility] Comment on above: Result Comment: Canc elled via OM: Order cancelled - Patient discharged Performed By: #### L 500.2500, L100.0100 ####[facility] [address] [place], [address] GAP Normal 5-15 [facility] Comment on above: Result Comment: Canc elled via OM: Order cancelled - Patient discharged Performed By: #### L 500.2500, L100.0100 ####[facility] [address] [place], [address] GLU Normal 70-99 [facility] Comment on above: Result Comment: Canc elled via OM: Order cancelled - Patient discharged Performed By: #### L 500.2500, L100.0100 ####[facility] [address] [place], [address] Potassium Normal 3.3-5.1 [facility] Comment on above: Result Comment: Canc elled via OM: Order cancelled - Patient discharged Performed By: #### L 500.2500, L100.0100 ####[facility] [address] [place], [address] Basic Metabolic Profile (BMP) Normal 133-145 [facility] Comment on above: Result Comment: Canc elled via OM: Order cancelled - Patient discharged Performed By: #### L 500.2500, L100.0100 ####[facility] [address] [place], [address] CBC W/Diff, Automatedon 03- Absolute Neut Normal 2.0-7.7 [facility] Comment on above: Result Comment: Canc elled via OM: Order cancelled - Patient discharged Performed By: #### L 500.2500, L100.0100 ####[facility] [address] [place], [address] HCT Normal 40-54 [facility] Comment on above: Result Comment: Canc elled via OM: Order cancelled - Patient discharged Performed By: #### L 500.2500, L100.0100 ####[facility] [address] [place], [address] HGB Normal 13.0-16.5 [facility] Comment on above: Result Comment: Canc elled via OM: Order cancelled - Patient discharged Performed By: #### L 500.2500, L100.0100 ####[facility] [address] [place], [address] MCH Normal 27.0-32.0 [facility] Comment on above: Result Comment: Canc elled via OM: Order cancelled - Patient discharged Performed By: #### L 500.2500, L100.0100 ####[facility] [address] [place], [address] MCHC Normal 32-36 [facility] Comment on above: Result Comment: Canc elled via OM: Order cancelled - Patient discharged Performed By: #### L 500.2500, L100.0100 ####[facility] [address] [place], [address] MCV Normal 80-94 [facility] Comment on above: Result Comment: Canc elled via OM: Order cancelled - Patient discharged Performed By: #### L 500.2500, L100.0100 ####[facility] [address] [place], [address] NEUT% Normal 47-70 [facility] Comment on above: Result Comment: Canc elled via OM: Order cancelled - Patient discharged Performed By: #### L 500.2500, L100.0100 ####[facility] [address] [place], [address] PLT Normal 150-450 [facility] Comment on above: Result Comment: Canc elled via OM: Order cancelled - Patient discharged Performed By: #### L 500.2500, L100.0100 ####[facility] [address] [place], [address] RBC Normal 4.6-6.2 [facility] Comment on above: Result Comment: Canc elled via OM: Order cancelled - Patient discharged Performed By: #### L 500.2500, L100.0100 ####[facility] [address] [place], [address] RDW CV Normal 11.6-14.6 [facility] Comment on above: Result Comment: Canc elled via OM: Order cancelled - Patient discharged Performed By: #### L 500.2500, L100.0100 ####[facility] [address] [place], [address] RDW SD Normal 35.1-43.9 [facility] Comment on above: Result Comment: Canc elled via OM: Order cancelled - Patient discharged Performed By: #### L 500.2500, L100.0100 ####[facility] [address] [place], [address] WBC Normal 4.4-11.0 [facility] Comment on above: Result Comment: Canc elled via OM: Order cancelled - Patient discharged Performed By: #### L 500.2500, L100.0100 ####[facility] [address] [place], [address] Absolute lymphocyte countOrd ered By: Juliana Shaw on 06-12-2024 Lymphocytes Auto (Unsp spec) [#/Vol] 1.86 10*3/uL 0.83-4.51 [facility] Absolute neutrophil countOrd ered By: Juliana Shaw on 06-12-2024 Neutrophils (Bld) [#/Vol] 4.4 10*3/uL 2.0-7.7 [facility] Anion gap in Serum or Plasma Ordered By: Juliana Shaw on 06-12-2024 Anion gap [Moles/Vol] 11 mmol/L 5-[address] [facility] Automated blood erythrocyte countOrdered By: Juliana Shaw on 06-12-2024 RBC (Bld) [#/Vol] 4.32 10*6/uL Low 4.6-6.2 [facility] Comment on above: Performed By: #### L 100.0100, L500.2500 ####[facility] [address] [place], [address] Automated blood hematocrit ( percentage)Ordered By: Juliana Shaw on 06-12-2024 Hematocrit (Bld) [Volume fraction] 38.4 % Low 40-54 [facility] Comment on above: Performed By: #### L 100.0100, L500.2500 ####[facility] [address] [place] [id number] Automated lymphocyte count a s percentage of total leukocytesOrdered By: Juliana Shaw on 06-12-2024 Lymphocytes/100 WBC (Bld) 24.3 % Normal 19-41 [facility] Comment on above: Performed By: #### L 100.0100, L500.2500 ####[facility] [address] [place], [address] Lymphocytes/100 WBC Auto (Unsp spec) 24.3 % - [facility] BUN/creatinine ratioOrdered By: Juliana Shaw on 06-12-2024 Urea nitrogen/Creatinine [Mass ratio] 25.3 mg/mg High 10-20 [facility] Basic Metabolic Profile (BMP )on 06-12-2024 BUN/CRE 25.3 RATIO High 10-20 [facility] Comment on above: Performed By: #### L 100.0100, L500.2500 ####[facility] [address] [place], [address] ECRCL 97.57 ml/min Normal 50-250 [facility] Comment on above: Performed By: #### L 100.0100, L500.2500 ####[facility] [address] [place], [place], [phone] GAP 11 Normal 5-15 [facility] Comment on above: Performed By: #### L 100.0100, L500.2500 ####[facility] [address] [place], [address] Basophil percentageOrdered B y: Juliana Shaw on 06-12-2024 Basophils/100 WBC (Bld) 0.7 % Normal 0-1 [facility] Comment on above: Performed By: #### L 100.0100, L500.2500 ####[facility] [address] [place], [address] CBC W/Diff, Automatedon 05-28 Absolute Lymph 1.86 X10 3/uL Normal 0.83-4.51 [facility] Comment on above: Performed By: #### L 100.0100, L500.2500 ####[facility] [address] [place], [address] Absolute Neut 4.4 X10 3/uL Normal 2.0-7.7 [facility] Comment on above: Performed By: #### L 100.0100, L500.2500 ####[facility] [address] [place], [address] IG% 2.100 High 0.0-0.9 [facility] Comment on above: Result Comment: IG% - Immature Granulocytes (promyelocytes, myelocytes andmetamyelocytes) > 1% indicates that a LEFT SHIFT is Present. Performed By: #### L 100.0100, L500.2500 ####[facility] [address] [place], [address] Nucleated RBC (Bld) [#/Vol] 0 10*3/uL Normal 0-5 [facility] Comment on above: Performed By: #### L 100.0100, L500.2500 ####[facility] [address] [place], [address] RDW SD 53.4 fl High 35.1-43.9 [facility] Comment on above: Performed By: #### L 100.0100, L500.2500 ####[facility] [address] [place], [address] Carbon dioxide, total [Moles /volume] in Central venous bloodOrdered By: Juliana Shaw on 06-12-2024 CO2 [Moles/Vol] 23.1 mmol/L Normal 21.0-32.0 [facility] Comment on above: Performed By: #### L 100.0100, L500.2500 ####[facility] [address] [place], [address] Chloride assayOrdered By: Carlos Shaw on 06-12-2024 Chloride [Moles/Vol] 102 mmol/L Normal 98-108 [facility] Comment on above: Performed By: #### L 100.0100, L500.2500 ####[facility] [address] [place], [address] Discharge Instructionon 05-28 Discharge Instruction Normal [facility] Eosinophil percentageOrdered By: Juliana Shaw on 06-12-2024 Eosinophils/100 WBC (Bld) 3.5 % Normal 0-5 [facility] Comment on above: Performed By: #### L 100.0100, L500.2500 ####[facility] [address] [place], [address] Erythrocyte distribution wid th ratioOrdered By: Juliana Shaw on 06-12-2024 Erythrocyte distribution width (RBC) [Ratio] 16.4 % High 11.6-14.6 [facility] Comment on above: Performed By: #### L 100.0100, L500.2500 ####[facility] [address] [place], [address] Erythrocyte distribution wid th standard deviationOrdered By: Juliana Shaw on 06-12-2024 Erythrocyte distribution width (RBC) [Entitic vol] 53.4 fL High 35.1-43.9 [facility] Erythrocyte distribution width (RBC) [Ratio] 53.4 fl High 35.1-43.9 [facility] Estimation of creatinine moon aranceOrdered By: Juliana Shaw on 06-12-2024 Estimated Creatinine Clearance Calc 97.57 ml/min 50-250 [facility] GFR/1.73 sq M.predicted elias g non-blacks MDRD (S/P/Bld) [Vol rate/Area]Ordered By: Juliana Shaw on 06-12-2024 Estimated GFR (MDRD) Non-Af Amer 107 >60 [facility] Comment on above: mL/min/1.73m2 CKD-EP I Creatinine Equation (2020) Glomerular filtration rate ( GFR) estimation/1.73 sq m using serum, plasma, or whole bOrdered By: Juliana Shaw on 06-12-2024 GFR/1.73 sq M.predicted among non-blacks MDRD (S/P/Bld) [Vol rate/Area] 107 mL/min/{1.73_m2} Normal >60 [facility] Comment on above: mL/min/1.73m2 CKD-EP I Creatinine Equation (2020) Result Comment: mL/m in/1.73m2 CKD-EPI Creatinine Equation (2020) Performed By: #### L 100.0100, L500.2500 ####[facility] [address] [place], [place], [id number] Hemoglobin measurementOrdere d By: Juliana Shaw on 06-12-2024 Hemoglobin (Bld) [Mass/Vol] 12.3 g/dL Low 13.0-16.5 [facility] Comment on above: Performed By: #### L 100.0100, L500.2500 ####[facility] [address] [place], [place], [address] Immature granulocytes/100 WB C Auto (Bld)Ordered By: Juliana Shaw on 06-12-2024 Immature granulocytes/100 WBC (Bld) 2.100 % High 0.0-0.9 [facility] Comment on above: IG% - Immature Granu locytes (promyelocytes, myelocytes and metamyelocytes) > 1% indicates that a LEFT SHIFT is Present. Lymphocytes Auto (Unsp spec) [#/Vol]Ordered By: Juliana Shaw on 06-12-2024 Lymphocytes (Bld) [#/Vol] 1.86 10*3/uL 0.83-4.51 [facility] MCV (mean corpuscular volume ) determinationOrdered By: Juliana Shaw on 06-12-2024 MCV (RBC) [Entitic vol] 88.9 fL Normal 80-94 [facility] Comment on above: Performed By: #### L 100.0100, L500.2500 ####[facility] [address] [place], [address] Mean corpuscular hemoglobin (MCH) determinationOrdered By: Juliana Shaw on 06-12-2024 MCH (RBC) [Entitic mass] 28.5 pg Normal 27.0-32.0 [facility] Comment on above: Performed By: #### L 100.0100, L500.2500 ####[facility] [address] [place], [address] Mean corpuscular hemoglobin concentration (MCHC) determinationOrdered By: Juliana Shaw on 06-12-2024 MCHC (RBC) [Mass/Vol] 32.0 g/dL Normal 32-[address] [facility] Comment on above: Performed By: #### L 100.0100, L500.2500 ####[facility] [address] [place], [address] Mean platelet volume determi nationOrdered By: Juliana Shaw on 06-12-2024 Platelet mean volume (Bld) [Entitic vol] 9.8 fL Normal 6.2-12.0 [facility] Comment on above: Performed By: #### L 100.0100, L500.2500 ####[facility] [address] [place], [address] Monocyte percentageOrdered B y: Juliana Shaw on 06-12-2024 Monocytes/100 WBC (Bld) 12.5 % High 0-10 [facility] Comment on above: Performed By: #### L 100.0100, L500.2500 ####[facility] [address] [place], [address] Neutrophil percentageOrdered By: Juliana Shaw on 06-12-2024 Neutrophils/100 WBC (Bld) 56.9 % Normal 47-70 [facility] Comment on above: Performed By: #### L 100.0100, L500.2500 ####[facility] [address] [place], [address] Nucleated red blood cell per centageOrdered By: Juliana Shaw on 06-12-2024 Nucleated RBC/100 WBC (Bld) [Ratio] 0 % 0-5 [facility] Platelet countOrdered By: Carlos Shaw on 06-12-2024 Platelets (Bld) [#/Vol] 288 10*3/uL Normal 150-450 [facility] Comment on above: Performed By: #### L 100.0100, L500.2500 ####[facility] [address] [place], [address] Potassium measurement (mass/ volume)Ordered By: Juliana Shaw on 06-12-2024 Potassium [Moles/Vol] 4.1 mmol/L Normal 3.3-5.[address] [facility] Comment on above: Hemolysis present, R esults could be affected. Result Comment: Hemo lysis present, Results??could be affected.?? Performed By: #### L 100.0100, L500.2500 ####[facility] [address] [place], [address] Potassium (Unsp spec) [Mass/Vol] 4.1 mmol/L 3.3-5.1 [facility] Comment on above: Hemolysis present, R esults could be affected. Serum creatinine measurement (mass/volume)Ordered By: Juliana Shaw on 06-12-2024 Creatinine [Mass/Vol] 0.57 mg/dL Low 0.70-1.[address] [facility] Comment on above: Performed By: #### L 100.0100, L500.2500 ####[facility] [address] [place], [address] Serum glucose measurement (m ass/volume)Ordered By: Juliana Shaw on 06-12-2024 Glucose [Mass/Vol] 163 mg/dL High 70-99 [facility] Comment on above: Performed By: #### L 100.0100, L500.2500 ####[facility] [address] [place], [address] Serum or plasma calcium marlyn urement (mass/volume)Ordered By: Juliana Shaw on 06-12-2024 Calcium [Mass/Vol] 9.3 mg/dL Normal 7.6-11.0 [facility] Comment on above: Performed By: #### L 100.0100, L500.2500 ####[facility] [address] [place], [address] Serum or plasma urea nitroge n measurement (mass/volume)Ordered By: Juliana Shaw on 06-12-2024 Urea nitrogen [Mass/Vol] 15 mg/dL Normal 4-19 [facility] Comment on above: Performed By: #### L 100.0100, L500.2500 ####[facility] [address] [place], [address] Sodium levelOrdered By: Nicci Shaw on 06-12-2024 Sodium [Moles/Vol] 137 mmol/L Normal 133-145 [facility] Comment on above: Performed By: #### L 100.0100, L500.2500 ####[facility] [address] [place], [address] Urine Cultureon 06-12-2024 URC Normal [facility] Comment on above: Performed By: #### M 100.2200 ####[facility] [address] [place], [address] White blood cell (WBC) count Ordered By: Juliana Shaw on 06-12-2024 WBC (Bld) [#/Vol] 7.7 10*3/uL Normal 4.4-11.0 [facility] Comment on above: Performed By: #### L 100.0100, L500.2500 ####[facility] [address] [place], [address] Basic Metabolic Profile (BMP )on 06-11-2024 BUN/CRE 21.5 RATIO High 10-20 [facility] Comment on above: Performed By: #### L 100.0100, L500.2500 ####[facility] [address] [place], [address] Calcium [Mass/Vol] 9.1 mg/dL Normal 7.6-11.0 [facility] Comment on above: Performed By: #### L 100.0100, L500.2500 ####[facility] [address] [place], [address] Chloride [Moles/Vol] 102 mmol/L Normal 98-108 [facility] Comment on above: Performed By: #### L 100.0100, L500.2500 ####[facility] [address] [place], [address] CO2 [Moles/Vol] 21.5 mmol/L Normal 21.0-32.0 [facility] Comment on above: Performed By: #### L 100.0100, L500.2500 ####[facility] [address] [place], [address] Creatinine [Mass/Vol] 0.61 mg/dL Low 0.70-1.[address] [facility] Comment on above: Performed By: #### L 100.0100, L500.2500 ####[facility] [address] [place], [address] ECRCL 97.57 ml/min Normal 50-250 [facility] Comment on above: Performed By: #### L 100.0100, L500.2500 ####[facility] [address] [place], [address] GAP 11 Normal 5-15 [facility] Comment on above: Performed By: #### L 100.0100, L500.2500 ####[facility] [address] [place], [address] GFR/1.73 sq M.predicted among non-blacks MDRD (S/P/Bld) [Vol rate/Area] 105 mL/min/{1.73_m2} Normal >60 [facility] Comment on above: Result Comment: mL/m in/1.73m2 CKD-EPI Creatinine Equation (2020) Performed By: #### L 100.0100, L500.2500 ####[facility] [address] [place], [address] Glucose [Mass/Vol] 148 mg/dL High 70-99 [facility] Comment on above: Performed By: #### L 100.0100, L500.2500 ####[facility] [address] [place], [address] Potassium [Moles/Vol] 4.2 mmol/L Normal 3.3-5.[address] [facility] Comment on above: Performed By: #### L 100.0100, L500.2500 ####[facility] [address] [place], [address] Sodium [Moles/Vol] 134 mmol/L Normal 133-145 [facility] Comment on above: Performed By: #### L 100.0100, L500.2500 ####[facility] [address] [place], [address] Urea nitrogen [Mass/Vol] 13 mg/dL Normal 4-19 [facility] Comment on above: Performed By: #### L 100.0100, L500.2500 ####[facility] [address] [place], [address] CBC W/Diff, Automatedon 05-28 Absolute Lymph 1.61 X10 3/uL Normal 0.83-4.51 [facility] Comment on above: Performed By: #### L 100.0100, L500.2500 ####[facility] [address] [place], [address] Absolute Neut 7.0 X10 3/uL Normal 2.0-7.7 [facility] Comment on above: Performed By: #### L 100.0100, L500.2500 ####[facility] [address] [place], [address] Basophils/100 WBC (Bld) 0.5 % Normal 0-1 [facility] Comment on above: Performed By: #### L 100.0100, L500.2500 ####[facility] [address] [place], [address] Eosinophils/100 WBC (Bld) 2.2 % Normal 0-5 [facility] Comment on above: Performed By: #### L 100.0100, L500.2500 ####[facility] [address] [place], [address] Erythrocyte distribution width (RBC) [Ratio] 16.6 % High 11.6-14.6 [facility] Comment on above: Performed By: #### L 100.0100, L500.2500 ####[facility] [address] [place], [address] Hematocrit (Bld) [Volume fraction] 37.0 % Low 40-54 [facility] Comment on above: Performed By: #### L 100.0100, L500.2500 ####[facility] [address] [place], [address] Hemoglobin (Bld) [Mass/Vol] 11.9 g/dL Low 13.0-16.5 [facility] Comment on above: Performed By: #### L 100.0100, L500.2500 ####[facility] [address] [place], [address] IG% 1.100 High 0.0-0.9 [facility] Comment on above: Result Comment: IG% - Immature Granulocytes (promyelocytes, myelocytes andmetamyelocytes) > 1% indicates that a LEFT SHIFT is Present. Performed By: #### L 100.0100, L500.2500 ####[facility] [address] [place], [address] Lymphocytes/100 WBC (Bld) 16.6 % Low 19-41 [facility] Comment on above: Performed By: #### L 100.0100, L500.2500 ####[facility] [address] [place], [address] MCH (RBC) [Entitic mass] 28.5 pg Normal 27.0-32.0 [facility] Comment on above: Performed By: #### L 100.0100, L500.2500 ####[facility] [address] [place], [address] MCHC (RBC) [Mass/Vol] 32.2 g/dL Normal 32-[address] [facility] Comment on above: Performed By: #### L 100.0100, L500.2500 ####[facility] [address] [place], [address] MCV (RBC) [Entitic vol] 88.5 fL Normal 80-94 [facility] Comment on above: Performed By: #### L 100.0100, L500.2500 ####[facility] [address] [place], [address] Monocytes/100 WBC (Bld) 7.4 % Normal 0-10 [facility] Comment on above: Performed By: #### L 100.0100, L500.2500 ####[facility] [address] [place], [address] Neutrophils/100 WBC (Bld) 72.2 % High 47-70 [facility] Comment on above: Performed By: #### L 100.0100, L500.2500 ####[facility] [address] [place], [address] Nucleated RBC (Bld) [#/Vol] 0 10*3/uL Normal 0-5 [facility] Comment on above: Performed By: #### L 100.0100, L500.2500 ####[facility] [address] [place], [address] Platelet mean volume (Bld) [Entitic vol] 9.6 fL Normal 6.2-12.0 [facility] Comment on above: Performed By: #### L 100.0100, L500.2500 ####[facility] [address] [place], [address] Platelets (Bld) [#/Vol] 270 10*3/uL Normal 150-450 [facility] Comment on above: Performed By: #### L 100.0100, L500.2500 ####[facility] [address] [place], [address] RBC (Bld) [#/Vol] 4.18 10*6/uL Low 4.6-6.2 [facility] Comment on above: Performed By: #### L 100.0100, L500.2500 ####[facility] [address] [place], [address] RDW SD 53.7 fl High 35.1-43.9 [facility] Comment on above: Performed By: #### L 100.0100, L500.2500 ####[facility] [address] [place], [address] WBC (Bld) [#/Vol] 9.7 10*3/uL Normal 4.4-11.0 [facility] Comment on above: Performed By: #### L 100.0100, L500.2500 ####[facility] [address] [place], [address] Basic Metabolic Profile (BMP )on 06-10-2024 BUN/CRE 13.0 RATIO Normal 10-20 [facility] Comment on above: Performed By: #### L 500.2500, L100.0100 ####[facility] [address] [place], [address] Calcium [Mass/Vol] 9.0 mg/dL Normal 7.6-11.0 [facility] Comment on above: Performed By: #### L 500.2500, L100.0100 ####[facility] [address] [place], [address] Chloride [Moles/Vol] 102 mmol/L Normal 98-108 [facility] Comment on above: Performed By: #### L 500.2500, L100.0100 ####[facility] [address] [place], [address] CO2 [Moles/Vol] 23.2 mmol/L Normal 21.0-32.0 [facility] Comment on above: Performed By: #### L 500.2500, L100.0100 ####[facility] [address] [place], [address] Creatinine [Mass/Vol] 0.66 mg/dL Low 0.70-1.[address] [facility] Comment on above: Performed By: #### L 500.2500, L100.0100 ####[facility] [address] [place], [address] ECRCL 97.57 ml/min Normal 50-250 [facility] Comment on above: Performed By: #### L 500.2500, L100.0100 ####[facility] [address] [place], [address] GAP 11 Normal 5-15 [facility] Comment on above: Performed By: #### L 500.2500, L100.0100 ####[facility] [address] [place], [address] GFR/1.73 sq M.predicted among non-blacks MDRD (S/P/Bld) [Vol rate/Area] 103 mL/min/{1.73_m2} Normal >60 [facility] Comment on above: Result Comment: mL/m in/1.73m2 CKD-EPI Creatinine Equation (2020) Performed By: #### L 500.2500, L100.0100 ####[facility] [address] [place], [address] Glucose [Mass/Vol] 127 mg/dL High 70-99 [facility] Comment on above: Performed By: #### L 500.2500, L100.0100 ####[facility] [address] [place], [address] Potassium [Moles/Vol] 4.0 mmol/L Normal 3.3-5.[address] [facility] Comment on above: Performed By: #### L 500.2500, L100.0100 ####[facility] [address] [place], [address] Sodium [Moles/Vol] 137 mmol/L Normal 133-145 [facility] Comment on above: Performed By: #### L 500.2500, L100.0100 ####[facility] [address] [place], [address] Urea nitrogen [Mass/Vol] 9 mg/dL Normal 4-19 [facility] Comment on above: Performed By: #### L 500.2500, L100.0100 ####[facility] [address] [place], [address] CBC W/Diff, Automatedon 05-28 Absolute Lymph 1.90 X10 3/uL Normal 0.83-4.51 [facility] Comment on above: Performed By: #### L 500.2500, L100.0100 ####[facility] [address] [place], [address] Absolute Neut 12.1 X10 3/uL High 2.0-7.7 [facility] Comment on above: Performed By: #### L 500.2500, L100.0100 ####[facility] [address] [place], [address] Basophils/100 WBC (Bld) 0.3 % Normal 0-1 [facility] Comment on above: Performed By: #### L 500.2500, L100.0100 ####[facility] [address] [place], [address] Eosinophils/100 WBC (Bld) 1.4 % Normal 0-5 [facility] Comment on above: Performed By: #### L 500.2500, L100.0100 ####[facility] [address] [place], [address] Erythrocyte distribution width (RBC) [Ratio] 17.1 % High 11.6-14.6 [facility] Comment on above: Performed By: #### L 500.2500, L100.0100 ####[facility] [address] [place], [address] Hematocrit (Bld) [Volume fraction] 38.1 % Low 40-54 [facility] Comment on above: Performed By: #### L 500.2500, L100.0100 ####[facility] [address] [place], [address] Hemoglobin (Bld) [Mass/Vol] 12.3 g/dL Low 13.0-16.5 [facility] Comment on above: Performed By: #### L 500.2500, L100.0100 ####[facility] [address] [place], [address] IG% 1.400 High 0.0-0.9 [facility] Comment on above: Result Comment: IG% - Immature Granulocytes (promyelocytes, myelocytes andmetamyelocytes) > 1% indicates that a LEFT SHIFT is Present. Performed By: #### L 500.2500, L100.0100 ####[facility] [address] [place], [address] Lymphocytes/100 WBC (Bld) 12.1 % Low 19-41 [facility] Comment on above: Performed By: #### L 500.2500, L100.0100 ####[facility] [address] [place], [address] MCH (RBC) [Entitic mass] 28.8 pg Normal 27.0-32.0 [facility] Comment on above: Performed By: #### L 500.2500, L100.0100 ####[facility] [address] [place], [address] MCHC (RBC) [Mass/Vol] 32.3 g/dL Normal 32-[address] [facility] Comment on above: Performed By: #### L 500.2500, L100.0100 ####[facility] [address] [place], [address] MCV (RBC) [Entitic vol] 89.2 fL Normal 80-94 [facility] Comment on above: Performed By: #### L 500.2500, L100.0100 ####[facility] [address] [place], [address] Monocytes/100 WBC (Bld) 8.2 % Normal 0-10 [facility] Comment on above: Performed By: #### L 500.2500, L100.0100 ####[facility] [address] [place], [address] Neutrophils/100 WBC (Bld) 76.6 % High 47-70 [facility] Comment on above: Performed By: #### L 500.2500, L100.0100 ####[facility] [address] [place], [address] Nucleated RBC (Bld) [#/Vol] 0 10*3/uL Normal 0-5 [facility] Comment on above: Performed By: #### L 500.2500, L100.0100 ####[facility] [address] [place], [address] Platelet mean volume (Bld) [Entitic vol] 9.9 fL Normal 6.2-12.0 [facility] Comment on above: Performed By: #### L 500.2500, L100.0100 ####[facility] [address] [place], [address] Platelets (Bld) [#/Vol] 278 10*3/uL Normal 150-450 [facility] Comment on above: Performed By: #### L 500.2500, L100.0100 ####[facility] [address] [place], [address] RBC (Bld) [#/Vol] 4.27 10*6/uL Low 4.6-6.2 [facility] Comment on above: Performed By: #### L 500.2500, L100.0100 ####[facility] [address] [place], [address] RDW SD 55.8 fl High 35.1-43.9 [facility] Comment on above: Performed By: #### L 500.2500, L100.0100 ####[facility] [address] [place], [address] WBC (Bld) [#/Vol] 15.8 10*3/uL High 4.4-11.0 [facility] Comment on above: Performed By: #### L 500.2500, L100.0100 ####[facility] [address] [place], [address] Absolute neutrophil countOrd ered By: Hebert Saavedra on 06-09-2024 Neutrophils (Bld) [#/Vol] 15.9 10*3/uL High 2.0-7.7 [facility] Amorphous sediment detection in urine sediment by light microscopyOrdered By: Hebert Saavedra on 06-09-2024 Amorphous sediment LM Ql (Urine sed) 1+ [facility] Anion gap in Serum or Plasma Ordered By: Hebert Saavedra on 06-09-2024 Anion gap [Moles/Vol] 13 mmol/L 5-[address] [facility] BUN/creatinine ratioOrdered By: Hebert Saavedra on 06-09-2024 Urea nitrogen/Creatinine [Mass ratio] 15.6 mg/mg 10-20 [facility] Basophil percentageOrdered B y: Hebert Saavedra on 06-09-2024 Basophils/100 WBC (Bld) 0.5 % 0-1 [facility] Bilirubin Test strip Ql (U)O rdered By: Hebertgerman Saavedra on 06-09-2024 Bilirubin Ql (U) Negative Negative [facility] Bilirubin, totalOrdered By: Hebertgerman Saavedra on 06-09-2024 Bilirubin [Mass/Vol] 0.29 mg/dL 0.00-1.30 [facility] Blood cultureOrdered By: Hebertgerman Saavedra on 06-09-2024 Bacteria identified Cx Nom (Bld) No growth in 5 days. [facility] Bacteria identified Cx Nom (Bld) No growth in 5 days. [facility] CBC W/Diff, Automatedon 05-28 Absolute Lymph 1.04 X10 3/uL Normal 0.83-4.51 [facility] Comment on above: Performed By: #### L 100.0100, L500.4050 ####[facility] [address] [place], [address] Absolute Neut 15.9 X10 3/uL High 2.0-7.7 [facility] Comment on above: Performed By: #### L 100.0100, L500.4050 ####[facility] [address] [place], [address] Basophils/100 WBC (Bld) 0.5 % Normal 0-1 [facility] Comment on above: Performed By: #### L 100.0100, L500.4050 ####[facility] [address] [place], [address] Eosinophils/100 WBC (Bld) 0.4 % Normal 0-5 [facility] Comment on above: Performed By: #### L 100.0100, L500.4050 ####[facility] [address] [place], [address] Erythrocyte distribution width (RBC) [Ratio] 16.5 % High 11.6-14.6 [facility] Comment on above: Performed By: #### L 100.0100, L500.4050 ####[facility] [address] [place], [address] Hematocrit (Bld) [Volume fraction] 41.3 % Normal 40-54 [facility] Comment on above: Performed By: #### L 100.0100, L500.4050 ####[facility] [address] [place], [address] Hemoglobin (Bld) [Mass/Vol] 13.6 g/dL Normal 13.0-16.5 [facility] Comment on above: Performed By: #### L 100.0100, L500.4050 ####[facility] [address] [place], [address] IG% 0.700 Normal 0.0-0.9 [facility] Comment on above: Result Comment: IG% - Immature Granulocytes (promyelocytes, myelocytes andmetamyelocytes) > 1% indicates that a LEFT SHIFT is Present. Performed By: #### L 100.0100, L500.4050 ####[facility] [address] [place], [address] Lymphocytes/100 WBC (Bld) 5.6 % Low 19-41 [facility] Comment on above: Performed By: #### L 100.0100, L500.4050 ####[facility] [address] [place], [address] MCH (RBC) [Entitic mass] 28.8 pg Normal 27.0-32.0 [facility] Comment on above: Performed By: #### L 100.0100, L500.4050 ####[facility] [address] [place], [address] MCHC (RBC) [Mass/Vol] 32.9 g/dL Normal 32-[address] [facility] Comment on above: Performed By: #### L 100.0100, L500.4050 ####[facility] [address] [place], [address] MCV (RBC) [Entitic vol] 87.3 fL Normal 80-94 [facility] Comment on above: Performed By: #### L 100.0100, L500.4050 ####[facility] [address] [place], [address] Monocytes/100 WBC (Bld) 6.9 % Normal 0-10 [facility] Comment on above: Performed By: #### L 100.0100, L500.4050 ####[facility] [address] [place], [address] Neutrophils/100 WBC (Bld) 85.9 % High 47-70 [facility] Comment on above: Performed By: #### L 100.0100, L500.4050 ####[facility] [address] [place], [address] Nucleated RBC (Bld) [#/Vol] 0 10*3/uL Normal 0-5 [facility] Comment on above: Performed By: #### L 100.0100, L500.4050 ####[facility] [address] [place], [address] Platelet mean volume (Bld) [Entitic vol] 9.3 fL Normal 6.2-12.0 [facility] Comment on above: Performed By: #### L 100.0100, L500.4050 ####[facility] [address] [place], [address] Platelets (Bld) [#/Vol] 310 10*3/uL Normal 150-450 [facility] Comment on above: Performed By: #### L 100.0100, L500.4050 ####[facility] [address] [place], [address] RBC (Bld) [#/Vol] 4.73 10*6/uL Normal 4.6-6.2 [facility] Comment on above: Performed By: #### L 100.0100, L500.4050 ####[facility] [address] [place], [address] RDW SD 52.9 fl High 35.1-43.9 [facility] Comment on above: Performed By: #### L 100.0100, L500.4050 ####[facility] [address] [place], [address] WBC (Bld) [#/Vol] 18.5 10*3/uL High 4.4-11.0 [facility] Comment on above: Performed By: #### L 100.0100, L500.4050 ####[facility] [address] [place], [address] Carbon dioxide, total [Moles /volume] in Central venous bloodOrdered By: Hebert Saavedra on 06-09-2024 CO2 [Moles/Vol] 22.0 mmol/L 21.0-32.0 [facility] Chest PA and Lateralon 06-09 Chest PA and Lateral Normal [facility] Chloride assayOrdered By: Adri Saavedra on 06-09-2024 Chloride [Moles/Vol] 103 mmol/L 98-108 [facility] Comprehensive Metabolic Prof ilon 06-09-2024 Albumin [Mass/Vol] 3.6 g/dL Normal 3.4-4.8 [facility] Comment on above: Performed By: #### L 100.0100, L500.4050 ####[facility] [address] [place], [address] Albumin/Globulin [Mass ratio] 1.0 {ratio} Normal 0.9-2.4 [facility] Comment on above: Performed By: #### L 100.0100, L500.4050 ####[facility] [address] [place], [address] ALK PHOS 137 U/L High 40-129 [facility] Comment on above: Performed By: #### L 100.0100, L500.4050 ####[facility] [address] [place], [address] ALT [Catalytic activity/Vol] 21 U/L Normal <=46 [facility] Comment on above: Performed By: #### L 100.0100, L500.4050 ####[facility] [address] [place], [address] AST [Catalytic activity/Vol] 25 U/L Normal <=37 [facility] Comment on above: Performed By: #### L 100.0100, L500.4050 ####[facility] [address] [place], [address] Bilirubin [Mass/Vol] 0.29 mg/dL Normal 0.00-1.30 [facility] Comment on above: Performed By: #### L 100.0100, L500.4050 ####[facility] [address] [place], [address] BUN/CRE 15.6 RATIO Normal 10-20 [facility] Comment on above: Performed By: #### L 100.0100, L500.4050 ####[facility] [address] [place], [address] Calcium [Mass/Vol] 9.3 mg/dL Normal 7.6-11.0 [facility] Comment on above: Performed By: #### L 100.0100, L500.4050 ####[facility] [address] [place], [address] Chloride [Moles/Vol] 103 mmol/L Normal 98-108 [facility] Comment on above: Performed By: #### L 100.0100, L500.4050 ####[facility] [address] [place], [address] CO2 [Moles/Vol] 22.0 mmol/L Normal 21.0-32.0 [facility] Comment on above: Performed By: #### L 100.0100, L500.4050 ####[facility] [address] [place], [address] Creatinine [Mass/Vol] 0.67 mg/dL Low 0.70-1.[address] [facility] Comment on above: Performed By: #### L 100.0100, L500.4050 ####[facility] [address] [place], [address] ECRCL 98.85 ml/min Normal 50-250 [facility] Comment on above: Performed By: #### L 100.0100, L500.4050 ####[facility] [address] [place], [address] GAP 13 Normal 5-15 [facility] Comment on above: Performed By: #### L 100.0100, L500.4050 ####[facility] [address] [place], [address] GFR/1.73 sq M.predicted among non-blacks MDRD (S/P/Bld) [Vol rate/Area] 102 mL/min/{1.73_m2} Normal >60 [facility] Comment on above: Result Comment: mL/m in/1.73m2 CKD-EPI Creatinine Equation (2020) Performed By: #### L 100.0100, L500.4050 ####[facility] [address] [place], [address] Globulin (S) [Mass/Vol] 3.7 g/dL Normal 2.2-4.2 [facility] Comment on above: Performed By: #### L 100.0100, L500.4050 ####[facility] [address] [place], [address] Glucose [Mass/Vol] 149 mg/dL High 70-99 [facility] Comment on above: Performed By: #### L 100.0100, L500.4050 ####[facility] [address] [place], [address] Potassium [Moles/Vol] 4.1 mmol/L Normal 3.3-5.[address] [facility] Comment on above: Performed By: #### L 100.0100, L500.4050 ####[facility] [address] [place], [address] Sodium [Moles/Vol] 138 mmol/L Normal 133-145 [facility] Comment on above: Performed By: #### L 100.0100, L500.4050 ####[facility] [address] [place], [address] T PROT 7.3 g/dL Normal 5.9-8.4 [facility] Comment on above: Performed By: #### L 100.0100, L500.4050 ####[facility] [address] [place], [address] Urea nitrogen [Mass/Vol] 10 mg/dL Normal 4-19 [facility] Comment on above: Performed By: #### L 100.0100, L500.4050 ####[facility] [address] [place], [address] Emergency Department Summary on 06-09-2024 Emergency Department Summary Normal [place] [facility] Eosinophil percentageOrdered By: Hebert Saavedra on 06-09-2024 Eosinophils/100 WBC (Bld) 0.4 % 0-5 [facility] Epithelial cells.squamous LM Ql (Urine sed)Ordered By: Hebert Saavedra on 06-09-2024 Epithelial cells.squamous LM.HPF (Urine sed) [#/Area] 0 /[HPF] 0-5 [facility] Erythrocyte distribution wid th ratioOrdered By: Hebert Saavedra on 06-09-2024 Erythrocyte distribution width (RBC) [Ratio] 16.5 % High 11.6-14.6 [facility] Erythrocyte distribution wid th standard deviationOrdered By: Hebert Saavedra on 06-09-2024 Erythrocyte distribution width (RBC) [Entitic vol] 52.9 fL High 35.1-43.9 [facility] Estimation of creatinine moon aranceOrdered By: Hebert Saavedra on 06-09-2024 Estimated Creatinine Clearance Calc 98.85 ml/min 50-250 [facility] GFR/1.73 sq M.predicted elias g non-blacks MDRD (S/P/Bld) [Vol rate/Area]Ordered By: Hebert Saavedra on 06-09-2024 Estimated GFR (MDRD) Non-Af Amer 102 >60 [facility] Comment on above: mL/min/1.73m2 CKD-EP I Creatinine Equation (2020) Glucose Ql (U)Ordered By: Adri Saavedra on 06-09-2024 Urine Glucose (UA) Normal mg/dl Normal [facility] H AND P Exam - [facility] 06-09-2024 H&P Exam - Hospitalist Normal [facility] Hematocrit Auto (Bld) [Volum e fraction]Ordered By: Hebert Saavedra on 06-09-2024 Hematocrit (Bld) [Volume fraction] 41.3 % 40-54 [facility] Hemoglobin measurementOrdere d By: Hebert Saavedra on 06-09-2024 Hemoglobin (Bld) [Mass/Vol] 13.6 g/dL 13.0-16.5 [facility] Immature granulocytes/100 WB C Auto (Bld)Ordered By: Hebert Saavedra on 06-09-2024 Immature granulocytes/100 WBC (Bld) 0.700 % 0.0-0.9 [facility] Comment on above: IG% - Immature Granu locytes (promyelocytes, myelocytes and metamyelocytes) > 1% indicates that a LEFT SHIFT is Present. Influenza virus A and B and SARS-CoV-2 (COVID-19) and Respiratory syncytial virus RNAOrdered By: Hebert Saavedra on 06-09-2024 SARS-CoV-2 (COVID-19) RNA IMER+probe Ql (Unsp spec) [facility] Ketones Test strip Ql (U)Ord ered By: Hebert Saavedra on 06-09-2024 Ketones Ql (U) Negative Negative [facility] Laboratory - Chemistry and C hemistry - challengeOrdered By: Hebertgerman Saavedra on 06-09-2024 AST [Catalytic activity/Vol] 25 U/L <38 [facility] Lactic Acidon 06-09-2024 Lactate [Moles/Vol] 2.8 mmol/L Invalid Interpretation Code 0.0-2.0 [facility] Comment on above: Order Comment: Y Result Comment: Crit ical Result(s) Called at: 11:12 by: Dylan Mccabe??Resultsread back by same. Performed By: #### L 503.6005 ####[facility] [address] [place], [address] Lactic acid measurementOrder ed By: Hebert Saavedra on 06-09-2024 Lactate [Moles/Vol] 2.8 mmol/L High 0.0-2.0 [facility] Comment on above: Critical Result(s) C alled at: 11:12 by: Dylan Mccabe Results read back by same. Lymphocytes Auto (Unsp spec) [#/Vol]Ordered By: Hebert Saavedra on 06-09-2024 Lymphocytes (Bld) [#/Vol] 1.04 10*3/uL 0.83-4.51 [facility] Lymphocytes/100 WBC Auto (Un sp spec)Ordered By: Hebert Saavedra on 06-09-2024 Lymphocytes/100 WBC (Bld) 5.6 % Low 19-41 [facility] M100.678on 06-09-2024 M100.678 Pending SARS-CoV-2 (COVID 19) Negative INFLUENZA A Negative INFLUENZA B Negative RSV PCR Negative Normal [facility] Comment on above: Performed By: #### M 100.678 ####[facility] [address] [place], [place], [id number] MCV (mean corpuscular volume ) determinationOrdered By: Hebert Saavedra on 06-09-2024 MCV (RBC) [Entitic vol] 87.3 fL 80-94 [facility] Mean corpuscular hemoglobin (MCH) determinationOrdered By: Hebert Saavedra on 06-09-2024 MCH (RBC) [Entitic mass] 28.8 pg 27.0-32.0 [facility] Mean corpuscular hemoglobin concentration (MCHC) determinationOrdered By: Hebert Saavedra on 06-09-2024 MCHC (RBC) [Mass/Vol] 32.9 g/dL 32-[address] [facility] Mean platelet volume determi nationOrdered By: Hebert Saavedra on 06-09-2024 Platelet mean volume (Bld) [Entitic vol] 9.3 fL 6.2-12.0 [facility] Microscopic analysis of urin e for red blood cells (RBC)Ordered By: Hebert Saavedra on 06-09-2024 Microscopic analysis of urine for red blood cells (RBC) 0-5 SEEN /hpf 0-5 [facility] Urine RBC 0-5 SEEN /hpf 0-5 [facility] Monocyte percentageOrdered B y: Hebert Saavedra on 06-09-2024 Monocytes/100 WBC (Bld) 6.9 % 0-10 [facility] Mucus LM Ql (Urine sed)Order ed By: Hebert Saavedra on 06-09-2024 Mucus Ql (Urine sed) 0 SEEN /hpf [facility] Neutrophil percentageOrdered By: Hebert Saavedra on 06-09-2024 Neutrophils/100 WBC (Bld) 85.9 % High 47-70 [facility] Nitrite Test strip Ql (U)Ord ered By: Hebert Saavedra on 06-09-2024 Nitrite Ql (U) Positive High Negative [facility] No Panel InformationOrdered By: Hebert Saavedra on 06-09-2024 25 U/L <38 [facility] Nucleated red blood cell per centageOrdered By: Hebert Saavedra on 06-09-2024 Nucleated RBC/100 WBC (Bld) [Ratio] 0 % 0-5 [facility] Platelet countOrdered By: Adri Saavedra on 06-09-2024 Platelets (Bld) [#/Vol] 310 10*3/uL 150-450 [facility] Potassium (Unsp spec) [Mass/ Vol]Ordered By: Hebert Saavedra on 06-09-2024 Potassium [Moles/Vol] 4.1 mmol/L 3.3-5.[address] [facility] Protein Test strip Ql (U)Ord ered By: Hebert Saavedra on 06-09-2024 Protein Ql (U) 30 mg/dl High Negative [facility] RBC Auto (Bld) [#/Vol]Ordere d By: Hebert Saavedra on 06-09-2024 RBC (Bld) [#/Vol] 4.73 10*6/uL 4.6-6.2 [facility] Serum creatinine measurement (mass/volume)Ordered By: Hebert Saavedra on 06-09-2024 Creatinine [Mass/Vol] 0.67 mg/dL Low 0.70-1.[address] [facility] Serum globulin measurementOr dered By: Hebert Saavedra 06-09-2024 Globulin (S) [Mass/Vol] 3.7 g/dL 2.2-4.2 [facility] Serum glucose measurement (m ass/volume)Ordered By: Hebert Saavedra 06-09-2024 Glucose [Mass/Vol] 149 mg/dL High 70-99 [facility] Serum or plasma alanine orozco otransferase (ALT) measurementOrdered By: Hebert Saavedra 06-09-2024 ALT [Catalytic activity/Vol] 21 U/L <47 [facility] Serum or plasma albumin marlyn urement (mass/volume)Ordered By: Hebert Saavedra 06-09-2024 Albumin [Mass/Vol] 3.6 g/dL 3.4-4.8 [facility] Serum or plasma albumin/glob ulin mass ratioOrdered By: Hebert Saavedra 06-09-2024 Albumin/Globulin [Mass ratio] 1.0 {ratio} 0.9-2.4 [facility] Serum or plasma alkaline marisol sphatase measurementOrdered By: Hebert Saavedra on 06-09-2024 ALP [Catalytic activity/Vol] 137 U/L High 40-129 [facility] Serum or plasma calcium marlyn urement (mass/volume)Ordered By: Hebert Saavedra on 06-09-2024 Calcium [Mass/Vol] 9.3 mg/dL 7.6-11.0 [facility] Serum or plasma urea nitroge n measurement (mass/volume)Ordered By: Hebert Saavedra on 06-09-2024 Urea nitrogen [Mass/Vol] 10 mg/dL 4-19 [facility] Sodium levelOrdered By: Hebertgerman Saavedra on 06-09-2024 Sodium [Moles/Vol] 138 mmol/L 133-145 [facility] Squamous epithelial cells de tection in urine sediment by light microscopyOrdered By: Hebertgerman Saavedra on 06-09-2024 Epithelial cells.squamous LM Ql (Urine sed) 0 SEEN /hpf 0-5 [facility] Total proteinOrdered By: Hebert Saavedra on 06-09-2024 Protein [Mass/Vol] 7.3 g/dL 5.9-8.4 [facility] Urinalysis, Completeon 06-09 BACTERIA 2+ /hpf Normal None Seen [facility] Comment on above: Order Comment: CLEAN CATCH Performed By: #### L 400.0001 ####[facility] [address] [place], [address] EPI,SQUAMOUS 0 SEEN Normal 0-5 [facility] Comment on above: Order Comment: CLEAN CATCH Performed By: #### L 400.0001 ####[facility] [address] [place], [address] RBC 0-5 SEEN Normal 0-5 [facility] Comment on above: Order Comment: CLEAN CATCH Performed By: #### L 400.0001 ####[facility] [address] [place], [address] WBC >100 SEEN Normal 0-5 [facility] Comment on above: Order Comment: CLEAN CATCH Performed By: #### L 400.0001 ####[facility] [address] [place], [address] AMORPHOUS 1+ Normal [facility] Comment on above: Order Comment: CLEAN CATCH Performed By: #### L 400.0001 ####[facility] [address] [place], [address] Mucus Ql (Urine sed) 0 SEEN Normal [facility] Comment on above: Order Comment: CLEAN CATCH Performed By: #### L 400.0001 ####[facility] [address] [place], [address] Urine blood detectionOrdered By: Hebert Saavedra on 06-09-2024 Urine Occult Blood 150 /ul High Negative [facility] Urine clarityOrdered By: Hebert Saavedra on 06-09-2024 Clarity (U) Cloudy Clear [facility] Urine color determinationOrd ered By: Hebert Saavedra on 06-09-2024 Color (U) Yellow Yellow [facility] Urine cultureOrdered By: Hebert Saavedra on 06-09-2024 Bacteria identified Cx Nom (U) Klebsiella oxytoca Abnormal [facility] Bacteria identified Cx Nom (U) Staphylococcus aureus Abnormal [facility] Urine glucose detectionOrder ed By: Hebert Saavedra on 06-09-2024 Glucose Ql (U) Normal mg/dl Normal [facility] Urine leukocyte esterase det ection by dipstickOrdered By: Hebert Saavedra on 06-09-2024 Leukocyte esterase Test strip Ql (U) 500 /ul High Negative [facility] Urine pHOrdered By: Hebert porter on 06-09-2024 pH (U) 7.0 [pH] 5.0 - 8.0 [facility] Urine sediment bacteria coun t by microscopy (number/high power field)Ordered By: Hebert Saavedra on 06-09-2024 Bacteria LM.HPF (Urine sed) [#/Area] 2 /[HPF] None Seen [facility] Urine specific gravity measu rementOrdered By: Hebert Saavedra on 06-09-2024 Specific gravity (U) [Rel density] 1.010 1.002-1.030 [facility] Urine urobilinogen measureme ntOrdered By: Hebertgerman Saavedra on 06-09-2024 Urobilinogen Ql (U) Normal mg/dl Normal [facility] Urobilinogen Ql (U)Ordered B y: Hebert Saavedra on 06-09-2024 Urine Urobilinogen Normal mg/dl Normal [facility] White blood cell (WBC) count Ordered By: Hebertgerman Saavedra on 06-09-2024 WBC (Bld) [#/Vol] 18.5 10*3/uL High 4.4-11.0 [facility] White blood cell countOrdere d By: Hebertgerman Saavedra on 06-09-2024 Urine WBC >100 SEEN /hpf 0-5 [facility] White blood cell count >100 SEEN /hpf 0-5 [facility] Cerv Spine 4 or 5 Viewson Cerv Spine 4 or 5 Views Normal [facility] Orthopedic Visit Reporton Orthopedic Visit Report Normal [facility] 36on 03-31-2024 36 Letter faxed to number provided. Successful fax confirmation scanned into media. Normal [facility] 36 Letter created, please fax [facility] 36 Patient need letter created for orders month SPT changes and care for any clogged SPT, per Jennifer. Fax order to [phone]. Please advise. Normal [facility] 36 Name of caller: Jennifer Contact phone number: [phone] Relationship to Patient: [facility] Home Health Care Provider: Dr Casas Practice: [facility] Chief Complaint/Reason for Call: Requesting a VERBAL ORDER Super Pubic Catheter Monthly Change. Jennifer: [phone] Patient changed insurance this is why the new Order is being requested. Best time of day caller can be reached: any Patient advised that office/PCP has 24-48 business hours to return their call: No Normal [facility] Prealbumin [id number] 4 Prealbumin [Mass/Vol] 22 mg/dL Normal - [facility] Comment on above: Result Comment: Perf ormed at: - [facility] [id number] Director: Rayo Wilkinson PhD, Phone: [phone] Performed By: #### L 100.0500, L500.4050, L3300.6400, L501.9985 ####[facility] [address] [place], [address] Albumin to globulin ratioOrd ered By: Kemi Rubio on 03-24-2024 Albumin/Globulin [Mass ratio] 0.7 {ratio} Low 0.9-2.4 [facility] Bilirubin, totalOrdered By: Kemi Rubio on 03-24-2024 Bilirubin [Mass/Vol] 0.30 mg/dL 0.20-1.00 [facility] Comment on above: For patients on eltr ombopag therapy, use of Dimension Jamul TBIL is not recommended. Blood urea nitrogen (BUN)/cr eatinine ratioOrdered By: Kemi Rubio on 03-24-2024 Urea nitrogen/Creatinine [Mass ratio] 20.9 mg/mg High 10-20 [facility] CBC-Complete Blood Cnt No Di ffon 03-24-2024 Erythrocyte distribution width (RBC) [Ratio] 17.0 % High 11.6-14.6 [facility] Comment on above: Performed By: #### L 100.0500, L500.4050, L3300.6400, L501.9985 ####[facility] [address] [place], [address] Hematocrit (Bld) [Volume fraction] 42.9 % Normal 40-54 [facility] Comment on above: Performed By: #### L 100.0500, L500.4050, L3300.6400, L501.9985 ####[facility] [address] [place], [address] Hemoglobin (Bld) [Mass/Vol] 13.4 g/dL Normal 13.0-16.5 [facility] Comment on above: Performed By: #### L 100.0500, L500.4050, L3300.6400, L501.9985 ####[facility] [address] [place], [address] MCH (RBC) [Entitic mass] 28.2 pg Normal 27.0-32.0 [facility] Comment on above: Performed By: #### L 100.0500, L500.4050, L3300.6400, L501.9985 ####[facility] [address] [place], [address] MCHC (RBC) [Mass/Vol] 31.2 g/dL Low 32-[address] [facility] Comment on above: Performed By: #### L 100.0500, L500.4050, L3300.6400, L501.9985 ####[facility] [address] [place], [address] MCV (RBC) [Entitic vol] 90.1 fL Normal 80-94 [facility] Comment on above: Performed By: #### L 100.0500, L500.4050, L3300.6400, L501.9985 ####[facility] [address] [place], [address] Platelet mean volume (Bld) [Entitic vol] 10.0 fL Normal 6.2-12.0 [facility] Comment on above: Performed By: #### L 100.0500, L500.4050, L3300.6400, L501.9985 ####[facility] [address] [place], [address] Platelets (Bld) [#/Vol] 343 10*3/uL Normal 150-450 [facility] Comment on above: Performed By: #### L 100.0500, L500.4050, L3300.6400, L501.9985 ####[facility] [address] [place], [address] RBC (Bld) [#/Vol] 4.76 10*6/uL Normal 4.6-6.2 [facility] Comment on above: Performed By: #### L 100.0500, L500.4050, L3300.6400, L501.9985 ####[facility] [address] [place], [address] RDW SD 56.4 fl High 35.1-43.9 [facility] Comment on above: Performed By: #### L 100.0500, L500.4050, L3300.6400, L501.9985 ####[facility] [address] [place], [address] WBC (Bld) [#/Vol] 5.8 10*3/uL Normal 4.4-11.0 [facility] Comment on above: Performed By: #### L 100.0500, L500.4050, L3300.6400, L501.9985 ####[facility] [address] [place], [address] Carbon dioxide measurementOr dered By: Kemi Rubio on 03-24-2024 CO2 [Moles/Vol] 27.0 mmol/L 21.0-32.0 [facility] Chloride measurementOrdered By: Kemi Rubio on 03-24-2024 Chloride [Moles/Vol] 106 mmol/L 98-107 [facility] Comprehensive Metabolic Prof ilon 03-24-2024 Albumin [Mass/Vol] 2.8 g/dL Low 3.2-5.0 [facility] Comment on above: Performed By: #### L 100.0500, L500.4050, L3300.6400, L501.9985 ####[facility] [address] [place], [address] Albumin/Globulin [Mass ratio] 0.7 {ratio} Low 0.9-2.4 [facility] Comment on above: Performed By: #### L 100.0500, L500.4050, L3300.6400, L501.9985 ####[facility] [address] [place], [address] ALK P 141 U/L High 45-117 [facility] Comment on above: Performed By: #### L 100.0500, L500.4050, L3300.6400, L501.9985 ####[facility] [address] [place], [address] ALT [Catalytic activity/Vol] 38 U/L Normal 16-61 [facility] Comment on above: Performed By: #### L 100.0500, L500.4050, L3300.6400, L501.9985 ####[facility] [address] [place], [address] AST [Catalytic activity/Vol] 23 U/L Normal 15-37 [facility] Comment on above: Performed By: #### L 100.0500, L500.4050, L3300.6400, L501.9985 ####[facility] [address] [place], [address] Bilirubin [Mass/Vol] 0.30 mg/dL Normal 0.20-1.00 [facility] Comment on above: Result Comment: For patients on eltrombopag therapy, use of Dimension Jamul TBIL is not recommended. Performed By: #### L 100.0500, L500.4050, L3300.6400, L501.9985 ####[facility] [address] [place], [address] BUN/CRE 20.9 RATIO High 10-20 [facility] Comment on above: Performed By: #### L 100.0500, L500.4050, L3300.6400, L501.9985 ####[facility] [address] [place], [address] CA,Total 9.2 mg/dL Normal 8.5-10.1 [facility] Comment on above: Performed By: #### L 100.0500, L500.4050, L3300.6400, L501.9985 ####[facility] [address] [place], [address] Chloride [Moles/Vol] 106 mmol/L Normal 98-107 [facility] Comment on above: Performed By: #### L 100.0500, L500.4050, L3300.6400, L501.9985 ####[facility] [address] [place], [address] CO2 [Moles/Vol] 27.0 mmol/L Normal 21.0-32.0 [facility] Comment on above: Performed By: #### L 100.0500, L500.4050, L3300.6400, L501.9985 ####[facility] [address] [place], [address] Creatinine [Mass/Vol] 0.62 mg/dL Low 0.70-1.[address] [facility] Comment on above: Result Comment: The validity of the calculated GFR GFRAA in patients over70 years has not been determined. Clinical correlation isessential. Performed By: #### L 100.0500, L500.4050, L3300.6400, L501.9985 ####[facility] [address] [place], [address] EST GFR - AA 165 mL/min Normal >60 [facility] Comment on above: Result Comment: Afri can Thai GFR Calc Performed By: #### L 100.0500, L500.4050, L3300.6400, L501.9985 ####[facility] [address] [place], [address] GAP 4 Low 5-15 [facility] Comment on above: Performed By: #### L 100.0500, L500.4050, L3300.6400, L501.9985 ####[facility] [address] [place], [address] GFR/1.73 sq M.predicted among non-blacks MDRD (S/P/Bld) [Vol rate/Area] 137 mL/min/{1.73_m2} Normal >60 [facility] Comment on above: Result Comment: Non- GFR Calc Performed By: #### L 100.0500, L500.4050, L3300.6400, L501.9985 ####[facility] [address] [place], [address] Globulin (S) [Mass/Vol] 4.3 g/dL High 2.2-4.2 [facility] Comment on above: Performed By: #### L 100.0500, L500.4050, L3300.6400, L501.9985 ####[facility] [address] [place], [address] Glucose [Mass/Vol] 114 mg/dL High 74-106 [facility] Comment on above: Result Comment: Fast ing Glucose result from 100 to 125 mg/dLsuggests IMPAIRED HOMEOSTASIS per A.D.A. criteria. Performed By: #### L 100.0500, L500.4050, L3300.6400, L501.9985 ####[facility] [address] [place], [address] Potassium [Moles/Vol] 4.3 mmol/L Normal 3.5-5.[address] [facility] Comment on above: Performed By: #### L 100.0500, L500.4050, L3300.6400, L501.9985 ####[facility] [address] [place], [address] Sodium [Moles/Vol] 137 mmol/L Normal 136-145 [facility] Comment on above: Performed By: #### L 100.0500, L500.4050, L3300.6400, L501.9985 ####[facility] [address] [place], [address] T PROT 7.1 g/dL Normal 6.4-8.2 [facility] Comment on above: Performed By: #### L 100.0500, L500.4050, L3300.6400, L501.9985 ####[facility] [address] [place], [address] Urea nitrogen [Mass/Vol] 13 mg/dL Normal 7-18 [facility] Comment on above: Performed By: #### L 100.0500, L500.4050, L3300.6400, L501.9985 ####[facility] [address] [place], [place], [address] Erythrocyte distribution wid th ratioOrdered By: Kemi Rubio on 03-24-2024 Erythrocyte distribution width (RBC) [Ratio] 17.0 % High 11.6-14.6 [facility] Erythrocyte distribution wid th standard deviationOrdered By: Kemi Rubio on 03-24-2024 Erythrocyte distribution width (RBC) [Entitic vol] 56.4 fL High 35.1-43.9 [facility] Estimated glomerular filtrat ion rate (GFR) AmericanOrdered By: Kemi Rubio on 03-24-2024 Estimated GFR (MDRD) Amer 165 mL/min >60 [facility] Comment on above: GFR Calc Glomerular filtration rate ( GFR) estimationOrdered By: Kemi Rubio on 03-24-2024 Estimated GFR (MDRD) Non-Af Amer 137 mL/min >60 [facility] Comment on above: Non- GFR Calc Glucose measurementOrdered B y: Kemi Rubio on 03-24-2024 Glucose [Mass/Vol] 114 mg/dL High 74-106 [facility] Comment on above: Fasting Glucose resu lt from 100 to 125 mg/dL suggests IMPAIRED HOMEOSTASIS per A.D.A. criteria. Hematocrit Auto (Bld) [Volum e fraction]Ordered By: Kemi Rubio on 03-24-2024 Hematocrit (Bld) [Volume fraction] 42.9 % 40-54 [facility] Hemoglobin A1con 03-24-2024 HbA1c (Bld) [Mass fraction] 6.5 % High 3.8-5.6 [facility] Comment on above: Result Comment: Norm al < 5.7 % Prediabetic 5.7 - 6.4 % Diabetic >or= 6.5 % Please note range changes. Performed By: #### L 100.0500, L500.4050, L3300.6400, L501.9985 ####[facility] [address] [place], [address] Hemoglobin A1c percentageOrd ered By: Kemi Rubio on 03-24-2024 HbA1c (Bld) [Mass fraction] 6.5 % High 3.8-5.6 [facility] Comment on above: Normal < 5.7 % Predi abetic 5.7 - 6.4 % Diabetic >or= 6.5 % Please note range changes. Hemoglobin measurementOrdere d By: Kemi Rubio on 03-24-2024 Hemoglobin (Bld) [Mass/Vol] 13.4 g/dL 13.0-16.5 [facility] Laboratory - Chemistry and C hemistry - challengeOrdered By: Kemi Rubio on 03-24-2024 AST [Catalytic activity/Vol] 23 U/L 15-37 [facility] MCV (mean corpuscular volume ) determinationOrdered By: Kemi Rubio on 03-24-2024 MCV (RBC) [Entitic vol] 90.1 fL 80-94 [facility] Mean corpuscular hemoglobin (MCH) determinationOrdered By: Kemi Rubio on 03-24-2024 MCH (RBC) [Entitic mass] 28.2 pg 27.0-32.0 [facility] Mean corpuscular hemoglobin concentration (MCHC) determinationOrdered By: Kemi Rubio on 03-24-2024 MCHC (RBC) [Mass/Vol] 31.2 g/dL Low 32-[address] [facility] Mean platelet volume determi nationOrdered By: Kemi Rubio on 03-24-2024 Platelet mean volume (Bld) [Entitic vol] 10.0 fL 6.2-12.0 [facility] Platelet countOrdered By: St doss Ramiro on 03-24-2024 Platelets (Bld) [#/Vol] 343 10*3/uL 150-450 [facility] Potassium measurementOrdered By: Kemi Rubio on 03-24-2024 Potassium [Moles/Vol] 4.3 mmol/L 3.5-5.[address] [facility] RBC Auto (Bld) [#/Vol]Ordere d By: Kemi Rubio on 03-24-2024 RBC (Bld) [#/Vol] 4.76 10*6/uL 4.6-6.2 [facility] Serum anion gap measurementO rdered By: Kemi Rubio on 03-24-2024 Anion gap [Moles/Vol] 4 mmol/L Low 5-[address] [facility] Serum globulin measurementOr dered By: Kemi Rubio on 03-24-2024 Globulin (S) [Mass/Vol] 4.3 g/dL High 2.2-4.2 [facility] Serum or plasma alanine orozco otransferase (ALT) measurementOrdered By: Kemi Rubio on 03-24-2024 ALT [Catalytic activity/Vol] 38 U/L 16-61 [facility] Serum or plasma albumin marlyn urement (mass/volume)Ordered By: Kemi Rubio on 03-24-2024 Albumin [Mass/Vol] 2.8 g/dL Low 3.2-5.0 [facility] Serum or plasma alkaline marisol sphatase measurementOrdered By: Kemi Rubio on 03-24-2024 ALP [Catalytic activity/Vol] 141 U/L High 45-117 [facility] Serum or plasma calcium marlyn urement (mass/volume)Ordered By: Kemi Rubio on 03-24-2024 Calcium [Mass/Vol] 9.2 mg/dL 8.5-10.1 [facility] Serum or plasma creatinine m easurement (mass/volume)Ordered By: Kemi Rubio on 03-24-2024 Creatinine [Mass/Vol] 0.62 mg/dL Low 0.70-1.[address] [facility] Comment on above: The validity of the calculated GFR & GFRAA in patients over 70 years has not been determined. Clinical correlation is essential. Serum or plasma urea nitroge n measurement (mass/volume)Ordered By: Kemi Rubio on 03-24-2024 Urea nitrogen [Mass/Vol] 13 mg/dL 10-14 [facility] Serum prealbumin measurement by immunoassayOrdered By: Kemi Rubio on 03-24-2024 Prealbumin [Mass/Vol] 22 mg/dL [facility] Comment on above: Performed at: [address] [id number] Director: Rayo Wilkinson PhD, Phone: [phone] Sodium levelOrdered By: Darryl Rubio on 03-24-2024 Sodium [Moles/Vol] 137 mmol/L 136-145 [facility] Total proteinOrdered By: John Rubio on 03-24-2024 Protein [Mass/Vol] 7.1 g/dL 6.4-8.2 [facility] White blood cell (WBC) count Ordered By: Kemi Rubio on 03-24-2024 WBC (Bld) [#/Vol] 5.8 10*3/uL 4.4-11.0 [facility] 36on 01-29-2024 36 Name of caller: Radha coronel Contact phone number: [phone] Relationship to Patient: [facility] Provider: Dr Casas Practice: Urology Chief Complaint/Reason for Call: Jaqueline stated that a voicemail was left on her managers phone and was calling back. Tried to call back line, no answer. Please call Jaqueline back to advise. Best time of day caller can be reached: Any Patient advised that office/PCP has 24-48 business hours to return their call: N/A Normal [facility] Urine Cultureon 01-27-2024 URC Normal [facility] Comment on above: Performed By: #### L 400.0001, M100.2200 ####[facility] [address] [place], [place], [id number] 36on 01-26-2024 36 Letter faxed to [facility] - ATTN: Jaqueline Your fax has been successfully sent to [facility] at [phone]. 01/26/2024 7:53:04 AM Conversion Record Successfully created cover sheet. Type: application/vnd.[place] [employer]-officedocum ent.wordprocessingml. document G3 to TIFF #1: Success [image/g3] (48ms) GhostScript TIFF #1: Success [image/tiff] (190ms) Resubmitted: [application/postscri pt] Word Automation #1: Success [image/tiff] (1534ms) ([id number]:WORKSR V2) 01/26/2024 7:52:58 AM Transmission Record Sent to [phone] with remote ID [phone] Result: (0) Success Page record: 1 - 3 Elapsed time: 03:18 on channel 48 01/26/2024 7:52:47 AM Conversion Record [[id number].PRT] Type: application/postscrip t G3 to TIFF #1: Success [image/g3] (64ms) GhostScript TIFF #1: Success [image/tiff] (379ms) ([id number]:WORKSR V1) 01/26/2024 7:52:40 AM Origin Record Created by [facility] [email or web address] [facility] 36on 01-25-2024 36 A letter has been created for home health orders. Please fax to home health agency. Thank you [facility] 36 Patient's spouse called and wanted to let us know that patient is in the ER at [facility] due to SPT being clogged. Home care saw patient this AM but could not change patient's catheter as they do not have orders to change SPT or flush it. Spoke with home care nurse Janell with [facility]. Janell states patient has been an established patient with them for a long time and the SPT is new. Currently they do not have orders to manage SPT. Per spouse they saw Dr. Casas on Thursday and orders were going to be written. Orders need created and faxed. Contact information included below. [facility]. [phone]. ATTN: Jaqueline [facility] [address] [facility] 36 S: Patient's home nurse Rod spoke with [facility] nurse regarding no urine in catheter B: Onset of symptoms/concern Thursday A: Rod, nurse with [facility], states that patient does not have urine in bag, and has not had any output since Thursday. Patient having severe abdominal pain and feels like bladder is full. Pt has been using urinal but is only dribbling. Nurse advises she just changed the catheter with no urine returned. R: Patient's nurse understands care advice that patient needs to go to ED now. No further needs at this time. Patient instructed to call back with new or worsening symptoms. Reason for Disposition ? SEVERE abdominal pain Protocols used: Urinary Catheter (e.g., Benson) Symptoms and Ehowsozcl-FHIJO-ZR [facility] 36 Fiorella LVM stating she needs a verbal order stating the size of the SPT tube and frequency. Called Fiorella back and advised per last OV note that pt uses a #16fr SPT and it is to be changed monthly. Fiorella verbalized understanding. [facility] Basic Metabolic Profile (BMP )on 01-25-2024 BUN/CRE 26.6 RATIO High 01-16 [facility] Comment on above: Performed By: #### L 100.0100, L500.2500 ####[facility] [address] [place], [address] CA,Total 9.3 mg/dL Normal 8.5-10.1 [facility] Comment on above: Performed By: #### L 100.0100, L500.2500 ####[facility] [address] [place], [address] Chloride [Moles/Vol] 109 mmol/L High 98-107 [facility] Comment on above: Performed By: #### L 100.0100, L500.2500 ####[facility] [address] [place], [address] CO2 [Moles/Vol] 25.0 mmol/L Normal 21.0-32.0 [facility] Comment on above: Performed By: #### L 100.0100, L500.2500 ####[facility] [address] [place], [address] Creatinine [Mass/Vol] 0.68 mg/dL Low 0.70-1.[address] [facility] Comment on above: Result Comment: The validity of the calculated GFR GFRAA in patients over70 years has not been determined. Clinical correlation isessential. Performed By: #### L 100.0100, L500.2500 ####[facility] [address] [place], [address] EST GFR - AA 150 mL/min Normal >60 [facility] Comment on above: Result Comment: Afri can Thai GFR Calc Performed By: #### L 100.0100, L500.2500 ####[facility] [address] [place], [address] GAP 5 Normal 5-15 [facility] Comment on above: Performed By: #### L 100.0100, L500.2500 ####[facility] [address] [place], [address] GFR/1.73 sq M.predicted among non-blacks MDRD (S/P/Bld) [Vol rate/Area] 124 mL/min/{1.73_m2} Normal >60 [facility] Comment on above: Result Comment: Non- GFR Calc Performed By: #### L 100.0100, L500.2500 ####[facility] [address] [place], [address] Glucose [Mass/Vol] 127 mg/dL High 74-106 [facility] Comment on above: Result Comment: Fast ing Glucose result greater than or equal to 126 mg/dLsuggests DIABETES MELLITUS per A.D.A. criteria. Performed By: #### L 100.0100, L500.2500 ####[facility] [address] [place], [address] Potassium [Moles/Vol] 4.0 mmol/L Normal 3.5-5.[address] [facility] Comment on above: Performed By: #### L 100.0100, L500.2500 ####[facility] [address] [place], [address] Sodium [Moles/Vol] 139 mmol/L Normal 136-145 [facility] Comment on above: Performed By: #### L 100.0100, L500.2500 ####[facility] [address] [place], [address] Urea nitrogen [Mass/Vol] 18 mg/dL Normal 7-18 [facility] Comment on above: Performed By: #### L 100.0100, L500.2500 ####[facility] [address] [place], [address] CBC W/Diff, Automatedon 10-2 Absolute Lymph 2.14 X10 3/uL Normal 0.83-4.51 [facility] Comment on above: Performed By: #### L 100.0100, L500.2500 ####[facility] [address] [place], [address] Absolute Neut 6.7 X10 3/uL Normal 2.0-7.7 [facility] Comment on above: Performed By: #### L 100.0100, L500.2500 ####[facility] [address] [place], [address] Basophils/100 WBC (Bld) 0.8 % Normal 0-1 [facility] Comment on above: Performed By: #### L 100.0100, L500.2500 ####[facility] [address] [place], [address] Eosinophils/100 WBC (Bld) 3.8 % Normal 0-5 [facility] Comment on above: Performed By: #### L 100.0100, L500.2500 ####[facility] [address] [place], [address] Erythrocyte distribution width (RBC) [Ratio] 16.5 % High 11.6-14.6 [facility] Comment on above: Performed By: #### L 100.0100, L500.2500 ####[facility] [address] [place], [address] Hematocrit (Bld) [Volume fraction] 42.7 % Normal 40-54 [facility] Comment on above: Performed By: #### L 100.0100, L500.2500 ####[facility] [address] [place], [address] Hemoglobin (Bld) [Mass/Vol] 13.8 g/dL Normal 13.0-16.5 [facility] Comment on above: Performed By: #### L 100.0100, L500.2500 ####[facility] [address] [place], [address] IG% 0.600 Normal 0.0-0.9 [facility] Comment on above: Result Comment: IG% - Immature Granulocytes (promyelocytes, myelocytes andmetamyelocytes) > 1% indicates that a LEFT SHIFT is Present. Performed By: #### L 100.0100, L500.2500 ####[facility] [address] [place], [address] Lymphocytes/100 WBC (Bld) 20.8 % Normal 19-41 [facility] Comment on above: Performed By: #### L 100.0100, L500.2500 ####[facility] [address] [place], [address] MCH (RBC) [Entitic mass] 28.2 pg Normal 27.0-32.0 [facility] Comment on above: Performed By: #### L 100.0100, L500.2500 ####[facility] [address] [place], [address] MCHC (RBC) [Mass/Vol] 32.3 g/dL Normal 32-[address] [facility] Comment on above: Performed By: #### L 100.0100, L500.2500 ####[facility] [address] [place], [address] MCV (RBC) [Entitic vol] 87.3 fL Normal 80-94 [facility] Comment on above: Performed By: #### L 100.0100, L500.2500 ####[facility] [address] [place], [address] Monocytes/100 WBC (Bld) 8.8 % Normal 0-10 [facility] Comment on above: Performed By: #### L 100.0100, L500.2500 ####[facility] [address] [place], [address] Neutrophils/100 WBC (Bld) 65.2 % Normal 47-70 [facility] Comment on above: Performed By: #### L 100.0100, L500.2500 ####[facility] [address] [place], [address] Nucleated RBC (Bld) [#/Vol] 0 10*3/uL Normal 0-5 [facility] Comment on above: Performed By: #### L 100.0100, L500.2500 ####[facility] [address] [place], [address] Platelet mean volume (Bld) [Entitic vol] 9.5 fL Normal 6.2-12.0 [facility] Comment on above: Performed By: #### L 100.0100, L500.2500 ####[facility] [address] [place], [address] Platelets (Bld) [#/Vol] 389 10*3/uL Normal 150-450 [facility] Comment on above: Performed By: #### L 100.0100, L500.2500 ####[facility] [address] [place], [address] RBC (Bld) [#/Vol] 4.89 10*6/uL Normal 4.6-6.2 [facility] Comment on above: Performed By: #### L 100.0100, L500.2500 ####[facility] [address] [place], [address] RDW SD 52.1 fl High 35.1-43.9 [facility] Comment on above: Performed By: #### L 100.0100, L500.2500 ####[facility] [address] [place], [address] WBC (Bld) [#/Vol] 10.3 10*3/uL Normal 4.4-11.0 [facility] Comment on above: Performed By: #### L 100.0100, L500.2500 ####[facility] [address] [place], [address] Emergency Department Summary on 01-25-2024 Emergency Department Summary Normal [facility] Urinalysis, Completeon 01-24 BACTERIA 2+ /hpf Normal None Seen [facility] Comment on above: Order Comment: COLLE CTOR TO SPECIFY Performed By: #### L 400.0001, M100.2200 ####[facility] [address] [place], [address] CAST,WBC 0-5 SEEN Normal None Seen [facility] Comment on above: Order Comment: COLLE CTOR TO SPECIFY Performed By: #### L 400.0001, M100.2200 ####[facility] [address] [place], [address] Mucus Ql (Urine sed) 1+ /hpf Normal [facility] Comment on above: Order Comment: COLLE CTOR TO SPECIFY Performed By: #### L 400.0001, M100.2200 ####[facility] [address] [place], [address] RBC 10-25 SEEN Normal 0-5 [facility] Comment on above: Order Comment: COLLE CTOR TO SPECIFY Performed By: #### L 400.0001, M100.2200 ####[facility] [address] [place], [address] WBC 25-50 SEEN Normal 0-5 [facility] Comment on above: Order Comment: COLLE CTOR TO SPECIFY Performed By: #### L 400.0001, M100.2200 ####[facility] [address] [place], [address] Office Visiton 01-22-2024 Follow-up visit [id number] Jorge Covington 1955 M Date Provider Department Center 01/22/2024 [id number]-REKDDCDRIKKI [facility] None No family history on file Level of Service:29205 AL OFFICE/OUTPATIENT ESTABLISHED LOW MDM 20 MIN Reason for Visit and Comments: Urinary Retention [738751] - SPT placement 12/11/23, Pt states they went to ED twice since then having SPT changed Normal [facility] Progress Noteon 01-22-2024 Progress Note Called [facility], left detailed VM to return call to office regarding SPT orders. Normal [facility] Progress Note Rikki Casas MD 01/22/2024 at 5:00 PM [...] on 12/11/2023. The patient apparently went into [facility] on 12/25/23 (POD#14) because the catheter was [...] discharge or drainage around the catheter. 16 Estonian suprapubic tube is in place. Musculoskeletal: General: [...] perform exchange of the suprapubic cystostomy (16 Estonian) on a monthly basis Rikki Casas MD 01/22/24 5:[address] [facility] Emergency Department Summary on 01-13-2024 Emergency Department Summary [facility] Emergency Department Summary on 12-25-2023 Emergency Department Summary [facility] 36on 12-18-2023 36 S: Patient's spoke with [facility] nurse regarding catheter leaking where it is [...] they have a home health care nurse. [facility] Rn advised her to contact Home Health to see if they are able to replace the catheter. Patient's verbalized understanding. No further needs at this time. Reason for Disposition [1] Catheter is broken or cracked AND [2] still works (functioning normally) Protocols used: Urinary Catheter (e.g., Benson) Symptoms and [facility] Op [facility] 12-11-2023 Op Note OPERATIVE NOTE [...] of the trocar was withdrawn. A 14 Estonian catheter was advanced through the trocar. The [...] to the recovery area in stable condition. [facility] 36on 12-07-2023 36 error Normal [facility] Wound Ctr History AND Physic william 11-23-2023 Wound Ctr History & Physical Normal [facility] Prealbumin [id number] Prealbumin [Mass/Vol] 26 mg/dL Normal -[address] [facility] Comment on above: Result Comment: Perf ormed at: [facility] [place] [id number] [place], [place] [id number] Director: Rayo Wilkinson PhD, Phone: [phone] Performed By: #### L 3300.6400, L501.9985, L500.4050, L100.0100 ####[facility] [address] [place], [address] CBC W/Diff, Automatedon 10-29 Absolute Lymph 1.98 X10 3/uL Normal 0.83-4.51 [facility] Comment on above: Performed By: #### L 3300.6400, L501.9985, L500.4050, L100.0100 ####[facility] [address] [place], [address] Absolute Neut 4.2 X10 3/uL Normal 2.0-7.7 [facility] Comment on above: Performed By: #### L 3300.6400, L501.9985, L500.4050, L100.0100 ####[facility] [address] [place], [address] Basophils/100 WBC (Bld) 0.7 % Normal 0-1 [facility] Comment on above: Performed By: #### L 3300.6400, L501.9985, L500.4050, L100.0100 ####[facility] [address] [place], [address] Eosinophils/100 WBC (Bld) 2.6 % Normal 0-5 [facility] Comment on above: Performed By: #### L 3300.6400, L501.9985, L500.4050, L100.0100 ####[facility] [address] [place], [address] Erythrocyte distribution width (RBC) [Ratio] 15.5 % High 11.6-14.6 [facility] Comment on above: Performed By: #### L 3300.6400, L501.9985, L500.4050, L100.0100 ####[facility] [address] [place], [address] Hematocrit (Bld) [Volume fraction] 42.4 % Normal 40-54 [facility] Comment on above: Performed By: #### L 3300.6400, L501.9985, L500.4050, L100.0100 ####[facility] [address] [place], [address] Hemoglobin (Bld) [Mass/Vol] 13.3 g/dL Normal 13.0-16.5 [facility] Comment on above: Performed By: #### L 3300.6400, L501.9985, L500.4050, L100.0100 ####[facility] [address] [place], [address] IG% 1.000 High 0.0-0.9 [facility] Comment on above: Result Comment: IG% - Immature Granulocytes (promyelocytes, myelocytes andmetamyelocytes) > 1% indicates that a LEFT SHIFT is Present. Performed By: #### L 3300.6400, L501.9985, L500.4050, L100.0100 ####[facility] [address] [place], [address] Lymphocytes/100 WBC (Bld) 27.6 % Normal 19-41 [facility] Comment on above: Performed By: #### L 3300.6400, L501.9985, L500.4050, L100.0100 ####[facility] [address] [place], [address] MCH (RBC) [Entitic mass] 28.3 pg Normal 27.0-32.0 [facility] Comment on above: Performed By: #### L 3300.6400, L501.9985, L500.4050, L100.0100 ####[facility] [address] [place], [address] MCHC (RBC) [Mass/Vol] 31.4 g/dL Low 32-[address] [facility] Comment on above: Performed By: #### L 3300.6400, L501.9985, L500.4050, L100.0100 ####[facility] [address] [place], [address] MCV (RBC) [Entitic vol] 90.2 fL Normal 80-94 [facility] Comment on above: Performed By: #### L 3300.6400, L501.9985, L500.4050, L100.0100 ####[facility] [address] [place], [address] Monocytes/100 WBC (Bld) 9.5 % Normal 0-10 [facility] Comment on above: Performed By: #### L 3300.6400, L501.9985, L500.4050, L100.0100 ####[facility] [address] [place], [address] Neutrophils/100 WBC (Bld) 58.6 % Normal 47-70 [facility] Comment on above: Performed By: #### L 3300.6400, L501.9985, L500.4050, L100.0100 ####[facility] [address] [place], [address] Nucleated RBC (Bld) [#/Vol] 0 10*3/uL Normal 0-5 [facility] Comment on above: Performed By: #### L 3300.6400, L501.9985, L500.4050, L100.0100 ####[facility] [address] [place], [address] Platelet mean volume (Bld) [Entitic vol] 9.8 fL Normal 6.2-12.0 [facility] Comment on above: Performed By: #### L 3300.6400, L501.9985, L500.4050, L100.0100 ####[facility] [address] [place], [address] Platelets (Bld) [#/Vol] 338 10*3/uL Normal 150-450 [facility] Comment on above: Performed By: #### L 3300.6400, L501.9985, L500.4050, L100.0100 ####[facility] [address] [place], [address] RBC (Bld) [#/Vol] 4.70 10*6/uL Normal 4.6-6.2 [facility] Comment on above: Performed By: #### L 3300.6400, L501.9985, L500.4050, L100.0100 ####[facility] [address] [place], [address] RDW SD 51.0 fl High 35.1-43.9 [facility] Comment on above: Performed By: #### L 3300.6400, L501.9985, L500.4050, L100.0100 ####[facility] [address] [place], [address] WBC (Bld) [#/Vol] 7.2 10*3/uL Normal 4.4-11.0 [facility] Comment on above: Performed By: #### L 3300.6400, L501.9985, L500.4050, L100.0100 ####[facility] [address] [place], [address] Comprehensive Metabolic Prof ilon 11-18-2023 Albumin [Mass/Vol] 2.7 g/dL Low 3.2-5.0 [facility] Comment on above: Performed By: #### L 3300.6400, L501.9985, L500.4050, L100.0100 ####[facility] [address] [place], [address] Albumin/Globulin [Mass ratio] 0.6 {ratio} Low 0.9-2.4 [facility] Comment on above: Performed By: #### L 3300.6400, L501.9985, L500.4050, L100.0100 ####[facility] [address] [place], [address] ALK P 140 U/L High 45-117 [facility] Comment on above: Performed By: #### L 3300.6400, L501.9985, L500.4050, L100.0100 ####[facility] [address] [place], [address] ALT [Catalytic activity/Vol] 24 U/L Normal 16-61 [facility] Comment on above: Performed By: #### L 3300.6400, L501.9985, L500.4050, L100.0100 ####[facility] [address] [place], [address] AST [Catalytic activity/Vol] 12 U/L Low 15-37 [facility] Comment on above: Performed By: #### L 3300.6400, L501.9985, L500.4050, L100.0100 ####[facility] [address] [place], [address] Bilirubin [Mass/Vol] 0.10 mg/dL Low 0.20-1.00 [facility] Comment on above: Result Comment: For patients on eltrombopag therapy, use of Dimension Jamul TBIL is not recommended. Performed By: #### L 3300.6400, L501.9985, L500.4050, L100.0100 ####[facility] [address] [place], [address] BUN/CRE 27.9 RATIO High 10-20 [facility] Comment on above: Performed By: #### L 3300.6400, L501.9985, L500.4050, L100.0100 ####[facility] [address] [place], [address] CA,Total 8.8 mg/dL Normal 8.5-10.1 [facility] Comment on above: Performed By: #### L 3300.6400, L501.9985, L500.4050, L100.0100 ####[facility] [address] [place], [address] Chloride [Moles/Vol] 111 mmol/L High 98-107 [facility] Comment on above: Performed By: #### L 3300.6400, L501.9985, L500.4050, L100.0100 ####[facility] [address] [place], [address] CO2 [Moles/Vol] 26.0 mmol/L Normal 21.0-32.0 [facility] Comment on above: Performed By: #### L 3300.6400, L501.9985, L500.4050, L100.0100 ####[facility] [address] [place], [address] Creatinine [Mass/Vol] 0.61 mg/dL Low 0.70-1.[address] [facility] Comment on above: Result Comment: The validity of the calculated GFR GFRAA in patients over70 years has not been determined. Clinical correlation isessential. Performed By: #### L 3300.6400, L501.9985, L500.4050, L100.0100 ####[facility] [address] [place], [address] EST GFR - AA 170 mL/min Normal >60 [facility] Comment on above: Result Comment: Afri can Thai GFR Calc Performed By: #### L 3300.6400, L501.9985, L500.4050, L100.0100 ####[facility] [address] [place], [address] GAP 3 Low 5-15 [facility] Comment on above: Performed By: #### L 3300.6400, L501.9985, L500.4050, L100.0100 ####[facility] [address] [place], [address] GFR/1.73 sq M.predicted among non-blacks MDRD (S/P/Bld) [Vol rate/Area] 140 mL/min/{1.73_m2} Normal >60 [facility] Comment on above: Result Comment: Non- GFR Calc Performed By: #### L 3300.6400, L501.9985, L500.4050, L100.0100 ####[facility] [address] [place], [address] Globulin (S) [Mass/Vol] 4.2 g/dL Normal 2.2-4.2 [facility] Comment on above: Performed By: #### L 3300.6400, L501.9985, L500.4050, L100.0100 ####[facility] [address] [place], [address] Glucose [Mass/Vol] 144 mg/dL High 74-106 [facility] Comment on above: Result Comment: Fast ing Glucose result greater than or equal to 126 mg/dLsuggests DIABETES MELLITUS per A.D.A. criteria. Performed By: #### L 3300.6400, L501.9985, L500.4050, L100.0100 ####[facility] [address] [place], [address] Potassium [Moles/Vol] 4.1 mmol/L Normal 3.5-5.[address] [facility] Comment on above: Performed By: #### L 3300.6400, L501.9985, L500.4050, L100.0100 ####[facility] [address] [place], [address] Sodium [Moles/Vol] 140 mmol/L Normal 136-145 [facility] Comment on above: Performed By: #### L 3300.6400, L501.9985, L500.4050, L100.0100 ####[facility] [address] [place], [address] T PROT 6.9 g/dL Normal 6.4-8.2 [facility] Comment on above: Performed By: #### L 3300.6400, L501.9985, L500.4050, L100.0100 ####[facility] [address] [place], [address] Urea nitrogen [Mass/Vol] 17 mg/dL Normal 7-18 [facility] Comment on above: Performed By: #### L 3300.6400, L501.9985, L500.4050, L100.0100 ####[facility] [address] [place], [address] Hemoglobin A1con 11-18-2023 HbA1c (Bld) [Mass fraction] 6.0 % High 3.8-5.6 [facility] Comment on above: Result Comment: Norm al < 5.7 % Prediabetic 5.7 - 6.4 % Diabetic >or= 6.5 % Please note range changes. Performed By: #### L 3300.6400, L501.9985, L500.4050, L100.0100 ####[facility] [address] [place], [address] Consultation - Infectious Dx on 11-04-2023 Consultation - Infectious Dx Normal [facility] Office Visiton 10-23-2023 Follow-up visit [id number] Jorge [place] 1955 M Date Provider Department Center 10/23/2023 [id number] CASAS Nathanael [facility] None No family history on file Level of Service:53116 AL OFFICE/OUTPATIENT NEW LOW MDM 30 MINUTES Reason for Visit and Comments: Urine Leakage [403] - Worsening incontinence - pt's states has frequency, but pt denies any other pain, issues, distress or discomfort currently Normal [facility] Progress Noteon 10-23-2023 Progress Note Rikki Casas MD 10/23/2023 at 8:20 PM UROLOGY INITIAL [...] we are to be doing this at [facility] All aspects of the procedure, along with the pros & cons of intervention and the potential associated risks & complications have been discussed with the patient. Questions have been answered, and informed consent has been obtained. Rikki Casas MD 10/23/23 8:[address] [facility] Anaerobic cultureOrdered By: Kemibehzad Rubio on 04-06-2023 Bacteria identified Anaer cx Nom (Unsp spec) No anaerobic bacteria isolated. [facility] Bacteria identified Anaer cx Nom (Unsp spec) No anaerobic bacteria isolated. [facility] Bacteria identified Cx Nom ( Wound)Ordered By: Kemi Ramiro on 04-06-2023 Wound Culture Staphylococcus aureus [facility] Wound Culture Corynebacterium striatum [facility] Wound Culture Enterococcus faecalis [facility] Wound Culture Staphylococcus aureus [facility] Wound Culture Corynebacterium striatum [facility] Wound Culture Enterococcus faecalis [facility] Gram stain for investigation of transfusion reactionOrdered By: Kemi Rubio on 04-06-2023 Microscopic observation Gram stain Nom (Unsp spec) [facility] Microscopic observation Gram stain Nom (Unsp spec) [facility] Anaerobic cultureOrdered By: Kemi Ramiro on 11-11-2022 Bacteria identified Anaer cx Nom (Unsp spec) No anaerobic bacteria isolated. [facility] Bacteria identified Cx Nom ( Wound)Ordered By: Kemi Ramiro on 11-11-2022 Wound Culture Staphylococcus aureus [facility] Gram stain for investigation of transfusion reactionOrdered By: Kemi Ramiro on 11-11-2022 Microscopic observation Gram stain Nom (Unsp spec) [facility] Anaerobic cultureOrdered By: Kemi Ramiro on 11-10-2022 Bacteria identified Anaer cx Nom (Unsp spec) No anaerobic bacteria isolated. [facility] Bacteria identified Cx Nom ( Wound)Ordered By: Kemi Ramiro on 11-10-2022 Wound Culture Staphylococcus aureus [facility] Gram stain for investigation of transfusion reactionOrdered By: Kemi Ramiro on 11-10-2022 Microscopic observation Gram stain Nom (Unsp spec) [facility] Basophil percentageOrdered B y: Gera Smith on 10-17-2022 Chloride [Moles/Vol] 107 mmol/L 98-[address] [facility] Glucose [Mass/Vol] 100 mg/dL 74-106 [facility] Comment on above: Fasting Glucose resu lt from 100 to 125 mg/dL suggests IMPAIRED HOMEOSTASIS per A.D.A. criteria. Potassium [Moles/Vol] 3.7 mmol/L 3.5-5.[address] [facility] Sodium [Moles/Vol] 139 mmol/L 136-145 [facility] WBC (Bld) [#/Vol] 8.2 10*3/uL 4.4-11.0 [facility] Blood erythrocytes count (nu mber/volume)Ordered By: Gera Smith on 10-17-2022 RBC (Bld) [#/Vol] 5.03 10*6/uL 4.6-6.2 [facility] Blood hemoglobin measurement (mass/volume)Ordered By: Gera Smith on 10-17-2022 Hemoglobin (Bld) [Mass/Vol] 13.9 g/dL 13.0-16.5 [facility] Blood platelet mean volumeOr dered By: Gera Smith on 10-17-2022 Platelet mean volume (Bld) [Entitic vol] 9.8 fL 6.2-12.0 [facility] Determination of erythrocyte mean corpuscular volume (MCV)Ordered By: Gera Smith on 10-17-2022 MCV (RBC) [Entitic vol] 87.3 fL 80-94 [facility] Hematocrit Auto (Bld) [Volum e fraction]Ordered By: Gera Smith on 10-17-2022 Hematocrit (Bld) [Volume fraction] 43.9 % 40-54 [facility] Laboratory - Chemistry and C hemistry - challengeOrdered By: Gera Smith on 10-17-2022 CO2 [Moles/Vol] 28.0 mmol/L 21.0-32.0 [facility] Urea nitrogen/Creatinine [Mass ratio] 14.2 mg/mg 10-20 [facility] Laboratory - Hematology and Cell countsOrdered By: Gera Smith on 10-17-2022 Erythrocyte distribution width (RBC) [Entitic vol] 58.8 fL 35.1-43.9 [facility] Erythrocyte distribution width (RBC) [Ratio] 18.6 % 11.6-14.6 [facility] MCH (RBC) [Entitic mass] 27.6 pg 27.0-32.0 [facility] MCHC Auto (RBC) [Mass/Vol]Or dered By: Gera Smith on 10-17-2022 MCHC (RBC) [Mass/Vol] 31.7 g/dL 32-[address] [facility] No Panel InformationOrdered By: Gera Smith on 10-17-2022 Estimated GFR (MDRD) Amer 187 mL/min >60 [facility] Comment on above: GFR Calc Estimated GFR (MDRD) Non-Af Amer 154 mL/min >60 [facility] Comment on above: Non- GFR Calc Thyroid Stimulating Hormone (TSH) 0.12 uIU/mL 0.358-3.74 [facility] Platelets bldOrdered By: Wendy Smith on 10-17-2022 Platelets (Bld) [#/Vol] 415 10*3/uL 150-450 [facility] Serum or plasma calcium marlyn urement (mass/volume)Ordered By: Gera Smith on 10-17-2022 Calcium [Mass/Vol] 9.3 mg/dL 8.5-10.1 [facility] Serum or plasma creatinine m easurement (mass/volume)Ordered By: Gera Smith on 10-17-2022 Creatinine [Mass/Vol] 0.56 mg/dL 0.70-1.[address] [facility] Comment on above: The validity of the calculated GFR & GFRAA in patients over 70 years has not been determined. Clinical correlation is essential. Serum or plasma urea nitroge n measurement (mass/volume)Ordered By: Gera Smith on 10-17-2022 Urea nitrogen [Mass/Vol] 8 mg/dL 7-18 [facility] Thin prep Papanicolaou smear with manual screeningOrdered By: Gera Smith on 10-17-2022 Thin prep Papanicolaou smear with manual screening 4 5-15 [facility] Anaerobic cultureOrdered By: Kemi Rubio on 07-18-2022 Bacteria identified Anaer cx Nom (Unsp spec) No anaerobic bacteria isolated. [facility] Bacteria identified Cx Nom ( Wound)Ordered By: Kemi Rubio on 07-16-2022 Wound Culture Staphylococcus aureus [facility] Wound Culture Positive [facility] Gram stain for investigation of transfusion reactionOrdered By: Kemi Rubio on 07-15-2022 Microscopic observation Gram stain Nom (Unsp spec) [facility] Anaerobic cultureOrdered By: Kemi Rubio on 07-14-2022 Bacteria identified Anaer cx Nom (Unsp spec) No anaerobic bacteria isolated. [facility] Bacteria identified Cx Nom ( Wound)Ordered By: Kemi Rubio on 07-14-2022 Wound Culture Staphylococcus aureus [facility] Wound Culture Positive [facility] Gram stain for investigation of transfusion reactionOrdered By: Kemi Rubio on 07-14-2022 Microscopic observation Gram stain Nom (Unsp spec) [facility] Fungus cultureOrdered By: Dr Cinthia Messina on 05-29-2022 Fungus identified Cx Nom (Unsp spec) [facility] Fungus stainOrdered By: Dr. Messina on 05-29-2022 Fungus identified Fungus stain Nom (Unsp spec) [facility] Bacteria identified Cx Nom ( Wound)Ordered By: Dr. Messina on 05-07-2022 Wound Culture Staphylococcus aureus [facility] Wound Culture Corynebacterium striatum [facility] Absolute lymphocyte countOrd ered By: Dr. Singh on 05-02-2022 Lymphocytes Auto (Unsp spec) [#/Vol] 1.72 10*3/uL 0.83-4.51 [facility] Anaerobic cultureOrdered By: Dr. Messina on 05-02-2022 Bacteria identified Anaer cx Nom (Unsp spec) [facility] Basophil percentageOrdered B y: Dr. Singh on 05-02-2022 Basophils/100 WBC (Bld) 0.6 % 0-1 [facility] Chloride [Moles/Vol] 99 mmol/L 98-107 [facility] Eosinophils/100 WBC (Bld) 2.3 % 0-5 [facility] Glucose [Mass/Vol] 115 mg/dL 74-106 [facility] Comment on above: Fasting Glucose resu lt from 100 to 125 mg/dL suggests IMPAIRED HOMEOSTASIS per A.D.A. criteria. Neutrophils (Bld) [#/Vol] 7.8 10*3/uL 2.0-7.7 [facility] Neutrophils/100 WBC (Bld) 69.8 % 47-70 [facility] Potassium [Moles/Vol] 4.2 mmol/L 3.5-5.[address] [facility] Sodium [Moles/Vol] 134 mmol/L 136-145 [facility] WBC (Bld) [#/Vol] 11.1 10*3/uL 4.4-11.0 [facility] Blood erythrocytes count (nu mber/volume)Ordered By: Dr. Singh on 05-02-2022 RBC (Bld) [#/Vol] 4.86 10*6/uL 4.6-6.2 [facility] Blood hemoglobin measurement (mass/volume)Ordered By: Dr. Singh on 05-02-2022 Hemoglobin (Bld) [Mass/Vol] 13.3 g/dL 13.0-16.5 [facility] Blood lymphocytes/100 leukoc ytesOrdered By: Dr. Singh on 05-02-2022 Lymphocytes/100 WBC (Bld) 15.5 % 19-41 [facility] Blood monocytes/100 leukocyt esOrdered By: Dr. Singh on 05-02-2022 Monocytes/100 WBC (Bld) 10.8 % 0-10 [facility] Blood platelet mean volumeOr dered By: Dr. Singh on 05-02-2022 Platelet mean volume (Bld) [Entitic vol] 9.7 fL 6.2-12.0 [facility] Determination of erythrocyte mean corpuscular volume (MCV)Ordered By: Dr. Singh on 05-02-2022 MCV (RBC) [Entitic vol] 85.0 fL 80-94 [facility] Hematocrit Auto (Bld) [Volum e fraction]Ordered By: Dr. Singh on 05-02-2022 Hematocrit (Bld) [Volume fraction] 41.3 % 40-54 [facility] Laboratory - Chemistry and C hemistry - challengeOrdered By: Dr. Singh on 05-02-2022 CO2 [Moles/Vol] 28.0 mmol/L 21.0-32.0 [facility] Urea nitrogen/Creatinine [Mass ratio] 22.5 mg/mg 10-20 [facility] Laboratory - Hematology and Cell countsOrdered By: Dr. Singh on 05-02-2022 Erythrocyte distribution width (RBC) [Entitic vol] 53.9 fL 35.1-43.9 [facility] Erythrocyte distribution width (RBC) [Ratio] 17.6 % 11.6-14.6 [facility] Immature granulocytes/100 WBC (Bld) 1.000 % 0.0-0.9 [facility] Comment on above: IG% - Immature Granu locytes (promyelocytes, myelocytes and metamyelocytes) > 1% indicates that a LEFT SHIFT is Present. MCH (RBC) [Entitic mass] 27.4 pg 27.0-32.0 [facility] Nucleated RBC/100 WBC (Bld) [Ratio] 0 % 0-5 [facility] MCHC Auto (RBC) [Mass/Vol]Or dered By: Dr. Singh on 05-02-2022 MCHC (RBC) [Mass/Vol] 32.2 g/dL 32-[address] [facility] No Panel InformationOrdered By: Dr. Singh on 05-02-2022 Estimated Creatinine Clearance Calc 99.19 ml/min [facility] Estimated GFR (MDRD) Amer 153 mL/min >60 [facility] Comment on above: GFR Calc Estimated GFR (MDRD) Non-Af Amer 127 mL/min >60 [facility] Comment on above: Non- GFR Calc Platelets bldOrdered By: Dr. Singh on 05-02-2022 Platelets (Bld) [#/Vol] 375 10*3/uL 150-450 [facility] Serum or plasma calcium marlyn urement (mass/volume)Ordered By: Dr. Singh on 05-02-2022 Calcium [Mass/Vol] 9.5 mg/dL 8.5-10.1 [facility] Serum or plasma creatinine m easurement (mass/volume)Ordered By: Dr. Singh on 05-02-2022 Creatinine [Mass/Vol] 0.67 mg/dL 0.70-1.[address] [facility] Comment on above: The validity of the calculated GFR & GFRAA in patients over 70 years has not been determined. Clinical correlation is essential. Serum or plasma urea nitroge n measurement (mass/volume)Ordered By: Dr. Singh on 05-02-2022 Urea nitrogen [Mass/Vol] 15 mg/dL 7-18 [facility] Thin prep Papanicolaou smear with manual screeningOrdered By: Dr. Singh on 05-02-2022 Thin prep Papanicolaou smear with manual screening 7 5-15 [facility] Bacteria identified Cx Nom ( Wound)Ordered By: Dr. Messina on 05-01-2022 Wound Culture Staphylococcus aureus [facility] Wound Culture Corynebacterium striatum [facility] Wound Culture Staphylococcus aureus [facility] Wound Culture Corynebacterium striatum [facility] Basophil percentageOrdered B y: Dr. Messina on 04-29-2022 Chloride [Moles/Vol] 102 mmol/L 98-107 [facility] Glucose [Mass/Vol] 89 mg/dL 74-106 [facility] Potassium [Moles/Vol] 4.3 mmol/L 3.5-5.[address] [facility] Sodium [Moles/Vol] 137 mmol/L 136-145 [facility] WBC (Bld) [#/Vol] 6.2 10*3/uL 4.4-11.0 [facility] Blood erythrocytes count (nu mber/volume)Ordered By: Dr. Messina on 04-29-2022 RBC (Bld) [#/Vol] 4.38 10*6/uL 4.6-6.2 [facility] Blood hemoglobin measurement (mass/volume)Ordered By: Dr. Messina on 04-29-2022 Hemoglobin (Bld) [Mass/Vol] 11.9 g/dL 13.0-16.5 [facility] Blood platelet mean volumeOr dered By: Dr. Messina on 04-29-2022 Platelet mean volume (Bld) [Entitic vol] 9.5 fL 6.2-12.0 [facility] Determination of erythrocyte mean corpuscular volume (MCV)Ordered By: Dr. Messina on 04-29-2022 MCV (RBC) [Entitic vol] 85.8 fL 80-94 [facility] Gram stain for investigation of transfusion reactionOrdered By: Dr. Messina on 04-29-2022 Microscopic observation Gram stain Nom (Unsp spec) [facility] Microscopic observation Gram stain Nom (Unsp spec) [facility] Hematocrit Auto (Bld) [Volum e fraction]Ordered By: Dr. Messina on 04-29-2022 Hematocrit (Bld) [Volume fraction] 37.6 % 40-54 [facility] Laboratory - Chemistry and C hemistry - challengeOrdered By: Dr. Messina on 04-29-2022 CO2 [Moles/Vol] 29.0 mmol/L 21.0-32.0 [facility] Urea nitrogen/Creatinine [Mass ratio] 18.1 mg/mg 10-20 [facility] Laboratory - Hematology and Cell countsOrdered By: Dr. Messina on 04-29-2022 Erythrocyte distribution width (RBC) [Entitic vol] 55.2 fL 35.1-43.9 [facility] Erythrocyte distribution width (RBC) [Ratio] 17.6 % 11.6-14.6 [facility] MCH (RBC) [Entitic mass] 27.2 pg 27.0-32.0 [facility] MCHC Auto (RBC) [Mass/Vol]Or dered By: Dr. Messina on 04-29-2022 MCHC (RBC) [Mass/Vol] 31.6 g/dL 32-[address] [facility] No Panel InformationOrdered By: Dr. Messina on 04-29-2022 Estimated Creatinine Clearance Calc 151.04 ml/min [facility] Estimated GFR (MDRD) Amer 247 mL/min >60 [facility] Comment on above: GFR Calc Estimated GFR (MDRD) Non-Af Amer 204 mL/min >60 [facility] Comment on above: Non- GFR Calc Platelets bldOrdered By: Dr. Messina on 04-29-2022 Platelets (Bld) [#/Vol] 352 10*3/uL 150-450 [facility] Serum or plasma calcium marlyn urement (mass/volume)Ordered By: Dr. Messina on 04-29-2022 Calcium [Mass/Vol] 8.8 mg/dL 8.5-10.1 [facility] Serum or plasma creatinine m easurement (mass/volume)Ordered By: Dr. Messina on 04-29-2022 Creatinine [Mass/Vol] 0.44 mg/dL 0.70-1.[address] [facility] Comment on above: The validity of the calculated GFR & GFRAA in patients over 70 years has not been determined. Clinical correlation is essential. Serum or plasma transthyreti n measurement (mass/volume)Ordered By: Dr. Messina on 04-29-2022 Prealbumin [Mass/Vol] 13.4 mg/dL 20.0-40.[address] [facility] Serum or plasma urea nitroge n measurement (mass/volume)Ordered By: Dr. Messina on 04-29-2022 Urea nitrogen [Mass/Vol] 8 mg/dL 7-18 [facility] Thin prep Papanicolaou smear with manual screeningOrdered By: Dr. Messina on 04-29-2022 Thin prep Papanicolaou smear with manual screening 6 5-15 [facility] No Panel InformationOrdered By: Dr. Bruce on 04-28-2022 Thyroid Stimulating Hormone (TSH) 0.63 uIU/mL 0.358-3.74 [facility] Clostridium difficile detect ion by polymerase chain reactionOrdered By: Cristy Verma on 04-04-2022 C. difficile DNA IMER+probe Ql (Unsp spec) [facility] Bacteria identified Anaer cx Nom (Unsp spec)Ordered By: Cristy Verma on 03-06-2022 Anaerobic Culture Clostridium perfringens [facility] Bacteria identified Cx Nom ( Wound)Ordered By: Cristy Verma on 03-02-2022 Wound Culture Escherichia coli [facility] Wound Culture Staphylococcus aureus [facility] Gram stain for investigation of transfusion reactionOrdered By: Cristy Verma on 02-28-2022 Microscopic observation Gram stain Nom (Unsp spec) [facility] Absolute lymphocyte countOrd ered By: Dr. Basurto on 02-08-2022 Lymphocytes Auto (Unsp spec) [#/Vol] 2.11 10*3/uL 0.83-4.51 [facility] Basophil percentageOrdered B y: Dr. Basurto on 02-08-2022 Basophil percentage 10-25 SEEN /hpf 0-5 [facility] Basophils/100 WBC (Bld) 0.3 % 0-1 [facility] Bilirubin [Mass/Vol] 0.40 mg/dL 0.20-1.00 [facility] Comment on above: For patients on eltr ombopag therapy, use of Dimension Jamul TBIL is not recommended. Chloride [Moles/Vol] 103 mmol/L 98-107 [facility] Eosinophils/100 WBC (Bld) 0.3 % 0-5 [facility] Glucose [Mass/Vol] 107 mg/dL 74-106 [facility] Comment on above: Fasting Glucose resu lt from 100 to 125 mg/dL suggests IMPAIRED HOMEOSTASIS per A.D.A. criteria. Neutrophils (Bld) [#/Vol] 13.7 10*3/uL 2.0-7.7 [facility] Neutrophils/100 WBC (Bld) 78.6 % 47-70 [facility] Potassium [Moles/Vol] 3.4 mmol/L 3.5-5.[address] [facility] Protein [Mass/Vol] 7.2 g/dL 6.4-8.2 [facility] Sodium [Moles/Vol] 138 mmol/L 136-145 [facility] WBC (Bld) [#/Vol] 17.4 10*3/uL 4.4-11.0 [facility] Bilirubin Test strip Ql (U)O rdered By: Dr. Basurto on 02-08-2022 Bilirubin Ql (U) Negative Negative [facility] Blood erythrocytes count (nu mber/volume)Ordered By: Dr. Basurto on 02-08-2022 RBC (Bld) [#/Vol] 4.47 10*6/uL 4.6-6.2 [facility] Blood hemoglobin measurement (mass/volume)Ordered By: Dr. Basurto on 02-08-2022 Hemoglobin (Bld) [Mass/Vol] 12.7 g/dL 13.0-16.5 [facility] Blood lymphocytes/100 leukoc ytesOrdered By: Dr. Basurto on 02-08-2022 Lymphocytes/100 WBC (Bld) 12.1 % 19-41 [facility] Blood monocytes/100 leukocyt esOrdered By: Dr. Basurto on 02-08-2022 Monocytes/100 WBC (Bld) 7.6 % 0-10 [facility] Blood platelet mean volumeOr dered By: Dr. Basurto on 02-08-2022 Platelet mean volume (Bld) [Entitic vol] 9.9 fL 6.2-12.0 [facility] Determination of erythrocyte mean corpuscular volume (MCV)Ordered By: Dr. Basruto on 02-08-2022 MCV (RBC) [Entitic vol] 88.6 fL 80-94 [facility] Hematocrit Auto (Bld) [Volum e fraction]Ordered By: Dr. Basurto on 02-08-2022 Hematocrit (Bld) [Volume fraction] 39.6 % 40-54 [facility] Ketones Test strip Ql (U)Ord ered By: Dr. Basurto on 02-08-2022 Ketones Ql (U) 5 mg/dl Negative [facility] Laboratory - Chemistry and C hemistry - challengeOrdered By: Dr. Basurto on 02-08-2022 ALP [Catalytic activity/Vol] 98 U/L 45-117 [facility] ALT [Catalytic activity/Vol] 16 U/L 16-61 [facility] CO2 [Moles/Vol] 28.0 mmol/L 21.0-32.0 [facility] Globulin (S) [Mass/Vol] 5.2 g/dL 2.2-4.2 [facility] Urea nitrogen/Creatinine [Mass ratio] 12.8 mg/mg 10-20 [facility] Laboratory - Hematology and Cell countsOrdered By: Dr. Basurto on 02-08-2022 Erythrocyte distribution width (RBC) [Entitic vol] 48.9 fL 35.1-43.9 [facility] Erythrocyte distribution width (RBC) [Ratio] 14.9 % 11.6-14.6 [facility] Immature granulocytes/100 WBC (Bld) 1.100 % 0.0-0.9 [facility] Comment on above: IG% - Immature Granu locytes (promyelocytes, myelocytes and metamyelocytes) > 1% indicates that a LEFT SHIFT is Present. MCH (RBC) [Entitic mass] 28.4 pg 27.0-32.0 [facility] Nucleated RBC/100 WBC (Bld) [Ratio] 0 % 0-5 [facility] MCHC Auto (RBC) [Mass/Vol]Or dered By: Dr. Basurto on 02-08-2022 MCHC (RBC) [Mass/Vol] 32.1 g/dL 32-[address] [facility] Mucus LM Ql (Urine sed)Order ed By: Dr. Basurto on 02-08-2022 Mucus Ql (Urine sed) 0 SEEN /hpf [facility] Nitrite Test strip Ql (U)Ord ered By: Dr. Basurto on 02-08-2022 Nitrite Ql (U) Negative Negative [facility] No Panel InformationOrdered By: Dr. Basurto on 02-08-2022 Estimated Creatinine Clearance Calc 107.19 ml/min [facility] Estimated GFR (MDRD) Amer 166 mL/min >60 [facility] Comment on above: GFR Calc Estimated GFR (MDRD) Non-Af Amer 137 mL/min >60 [facility] Comment on above: Non- GFR Calc Platelets bldOrdered By: Dr. Basurto on 02-08-2022 Platelets (Bld) [#/Vol] 410 10*3/uL 150-450 [facility] Protein Test strip Ql (U)Ord ered By: Dr. Basurto on 02-08-2022 Protein Ql (U) 30 mg/dl Negative [facility] Serum or plasma albumin marlyn urement (mass/volume)Ordered By: Dr. Basurto on 02-08-2022 Albumin [Mass/Vol] 2.0 g/dL 3.2-5.0 [facility] Serum or plasma albumin/glob ulin mass ratioOrdered By: Dr. Basurto on 02-08-2022 Albumin/Globulin [Mass ratio] 0.4 {ratio} 0.9-2.4 [facility] Serum or plasma calcium marlyn urement (mass/volume)Ordered By: Dr. Basurto on 02-08-2022 Calcium [Mass/Vol] 9.0 mg/dL 8.5-10.1 [facility] Serum or plasma creatinine m easurement (mass/volume)Ordered By: Dr. Basurto on 02-08-2022 Creatinine [Mass/Vol] 0.62 mg/dL 0.70-1.[address] [facility] Comment on above: The validity of the calculated GFR & GFRAA in patients over 70 years has not been determined. Clinical correlation is essential. Serum or plasma urea nitroge n measurement (mass/volume)Ordered By: Dr. Basurto on 02-08-2022 Urea nitrogen [Mass/Vol] 8 mg/dL 7-18 [facility] Squamous epithelial cells de tection in urine sediment by light microscopyOrdered By: Dr. Basurto on 02-08-2022 Epithelial cells.squamous LM Ql (Urine sed) 0 SEEN /hpf 0-5 [facility] Thin prep Papanicolaou smear with manual screeningOrdered By: Dr. Basurto on 02-08-2022 Thin prep Papanicolaou smear with manual screening 12 U/L 15-37 [facility] Thin prep Papanicolaou smear with manual screening 7 5-15 [facility] Urine blood detectionOrdered By: Dr. Basurto on 02-08-2022 RBC Ql (U) 50 /ul Negative [facility] RBC Ql (U) 0 SEEN /hpf 0-5 [facility] Urine clarityOrdered By: Dr. Basurto on 02-08-2022 Clarity (U) Cloudy Clear [facility] Urine color determinationOrd ered By: Dr. Basurto on 02-08-2022 Color (U) Gilma Yellow [facility] Urine glucose detectionOrder ed By: Dr. Basurto on 02-08-2022 Glucose Ql (U) Normal mg/dl Normal [facility] Urine leukocyte esterase det ection by dipstickOrdered By: Dr. Basurto on 02-08-2022 Leukocyte esterase Test strip Ql (U) 100 /ul Negative [facility] Urine pHOrdered By: Dr. Jarod vee on 02-08-2022 pH (U) 8.0 [pH] 5.0 - 8.0 [facility] Urine sediment bacteria coun t by microscopy (number/high power field)Ordered By: Dr. Basurto on 02-08-2022 Bacteria LM.HPF (Urine sed) [#/Area] 4 /[HPF] None Seen [facility] Urine specific gravity measu rementOrdered By: Dr. Basurto on 02-08-2022 Specific gravity (U) [Rel density] 1.010 1.002-1.030 [facility] Urobilinogen Auto test strip Ql (U)Ordered By: Dr. Basurto on 02-08-2022 Urobilinogen Ql (U) 8 mg/dl Normal [facility] CASE MANAGEMon 02-02-2019 CASE MANAGEM HNO ID: [id number] Author: Florence (Rn) JAZZY Mullins Service: Care Management Author Type: Registered Nurse Type: Care Mgt Progress Note Filed: 02/02/2019 12:05 PM Note Text: CARE MANAGEMENT DISCHARGE NOTE SERVICE DATE: 02/02/2019 SERVICE TIME: 12:01 PM LOS: 11 days Admission Date: 01/22/2019 DISCHARGE ARRANGEMENT (list agency and phone number) [facility] facility: Was an expedited discharge program used? No Provider: [facility] CAREGIVER ASSESSMENT: Caregiver is ready, willing and able to meet the patient's needs as recommended by the inter-professional team? Yes Patient's transition needs and plan for meeting these needs: SNF at [facility] Does the patient have an acute stroke diagnosis, or has the patient had a stroke during this admission? No HANDOFF COMMUNICATION: Primary Care Physician: Name: Dr Nathanael Cardona Bedside nurse. Patient and Dasia. Summary of care sent to PCP Dr Cardona and [facility] TRANSPORTATION ARRANGEMENTS: Mode of Transportation: Ambulance Transportation Agency and Phone #: [facility] ( [facility] ) [phone] / [phone]. Date of Trip: 02/02/2019 Type of Service: BLS Non-emergency Is Patient Medicaid Pending: No Discussion of financial coverage occurred with Patient and Spouse . Tax Investigator Location: room 264 Destination: [facility] Financial Care Management Responsibility: None Estimated Charge: 0 Approving Clerk Telegraph Service: NA ADDITIONAL CONTACT RESOURCES: NA Discharge written for patient to go to [facility] SNF. Pt and agreeable. Precert obtained. Ambulance transport arranged per 's request. Discussed with her possibility of out of pocket expense after billed to insurance. Ambulance scheduled for 3 PM pick up worker. SIGNATURE: Florence Mullins RN PATIENT NAME: Jorge Covington DATE: February 02, 2019 TIME: 12:01 PM PAGER/CONTACT #: [phone] [facility] CASE MANAGEM HNO ID: [id number] Author: Florence (Rn) JAZZY Mullins Service: Care Management Author Type: Registered Nurse Type: Care Mgt Progress Note Filed: 02/02/2019 11:08 AM Note Text: CARE MANAGEMENT PROGRESS NOTE SERVICE DATE: 02/02/2019 SERVICE TIME: 11:08 AM LOS: 11 days IM letter given to patient on 02/02/2019. IM letter given and explained to patient. Precert obtained and pt to be discharged to [facility]. Transportation arranged for 3 PM pick up worker. SIGNATURE: Florence Mullins RN PATIENT NAME: Jorge Covington DATE: February 02, 2019 TIME: 11:08 AM PAGER/CONTACT #: [phone] [facility] CBCon 02-02-2019 Erythrocyte distribution width (RBC) [Ratio] 17.4 % High 11.5-15.0 [facility] Comment on above: Performed By: #### C BC, CMP ####[facility] [address] [place] [address] Hematocrit (Bld) [Volume fraction] 40.7 % Normal 39.0-51.0 [facility] Comment on above: Performed By: #### C BC, CMP ####[facility] [address] [place] [phone] Hemoglobin (Bld) [Mass/Vol] 13.0 g/dL Normal 13.0-17.0 [facility] Comment on above: Performed By: #### C BC, CMP ####[facility] [address] [place] [address] MCH (RBC) [Entitic mass] 30.0 pG Normal 26.0-34.0 [facility] Comment on above: Performed By: #### C BC, CMP ####[facility] [address] [place] [address] MCHC (RBC) [Mass/Vol] 31.9 g/dL Normal 30.5-36.0 [facility] Comment on above: Performed By: #### C BC, CMP ####[facility] Fjv[address]mp[address]md7464 [address] MCV (RBC) [Entitic vol] 94.0 fL Normal 80.0-100.0 [facility] Comment on above: Performed By: #### C BC, CMP ####[facility] Apaiwrvljs9430 [address] Platelet mean volume (Bld) [Entitic vol] 9.5 fL Normal 9.0-12.7 [facility] Comment on above: Performed By: #### C BC, CMP ####[facility] [address] [place] [phone] Platelets (Bld) [#/Vol] 383 10*3/uL Normal 150-400 [facility] Comment on above: Performed By: #### C BC, CMP ####[facility] [address] [place] [phone] RBC (Bld) [#/Vol] 4.33 10*6/uL Normal 4.20-6.00 [facility] Comment on above: Performed By: #### C BC, CMP ####[facility] [address] [place] [phone] WBC (Bld) [#/Vol] 10.09 10*3/uL Normal 3.70-11.00 [facility] Comment on above: Performed By: #### C BC, CMP ####[facility] [address] [place] [phone] CNCOon 02-02-2019 CNCO Letter Text Normal [facility] CONSULT PROGon 02-02-2019 CONSULT PROG HNO ID: [id number] Author: Magy Orosco Service: Gastroenterology Author Type: [...] Orosco MD February 02, 2019 3:21 PM INTERVAL HPI: Denies any recurrence of dysphagia [...] Cooperative. NAD EYES: No scleral icterus SKIN: [place] in color. No jaundice LUNGS: Scattered rhonchi [...] CBC, Coags, BMP, Mg, Phos Recent Labs 02/02/1942802/01/19 0432 01/31/19 0416 WBC 10.09 11.05* 9.46 HB 13.0 13.6 13.1 HCT 40.7 42.5 41.3 PLT 383 405* 374 NA 134* 136 138 K 4.4 4.5 4.6 CHLOR 99 100 103 CO2 24 24 25 BUN 21 22 24 CREAT 0.75 0.71* 0.77 GLUC 123* 124* 114* CA 9.1 9.7 9.4 Liver Function, Amylase, AND Lipase Recent Labs 11/06/19 0429 TPROT 7.4 ALB 3.8* ALT 15 [...] COLONOSCOPY Patient reports many years ago at [place] - further details unknown SIGNATURE: Mimi Ace, FLORIST'S DECORATOR DATE: February 02, 2019 TIME: 2:05 PM [facility] Comp Metabolic Panelon 02-02 Albumin [Mass/Vol] 3.8 g/dL Low 3.9-4.9 [facility] Comment on above: Performed By: #### C BC, CMP ####[facility] [address] [place] [address] ALP [Catalytic activity/Vol] 64 U/L Normal 38-113 [facility] Comment on above: Performed By: #### C BC, CMP ####[facility] [address] [place] [phone] ALT [Catalytic activity/Vol] 15 U/L Normal 10-54 [facility] Comment on above: Performed By: #### C BC, CMP ####[facility] [address]hesw2853 [address] Anion gap [Moles/Vol] 11 mmol/L Normal 9-18 [facility] Comment on above: Performed By: #### C BC, CMP ####[facility] [address] [place] [address] AST [Catalytic activity/Vol] 15 U/L Normal 14-40 [facility] Comment on above: Performed By: #### C BC, CMP ####[facility] [address] [place] [address] Bilirubin [Mass/Vol] 0.5 mg/dL Normal 0.2-1.3 [facility] Comment on above: Performed By: #### C RAFAEL, CMP ####[facility] [address] [place] [address] Calcium [Mass/Vol] 9.1 mg/dL Normal 8.5-10.2 [facility] Comment on above: Performed By: #### C RAFAEL, CMP ####[facility] [address] [place], [place] [phone] Chloride [Moles/Vol] 99 mmol/L Normal 97-105 [facility] Comment on above: Performed By: #### Beatriz HALL, CMP ####[facility] [address] [place] [address] CO2 [Moles/Vol] 24 mmol/L Normal 22-30 [facility] Comment on above: Performed By: #### C RAFAEL, CMP ####[facility] [address] [place] [address] Creatinine [Mass/Vol] 0.75 mg/dL Normal 0.73-1.22 [facility] Comment on above: Performed By: #### Beatriz HALL, CMP ####[facility] [address] [place], [place] [phone] eGFR- Amer. >60 [facility] Comment on above: Performed By: #### C RAFAEL, CMP ####[facility] [address] [place], [place] [phone] GFR/1.73 sq M predicted among non-blacks MDRD (S/P/Bld) [Vol rate/Area] mL/min/{1.73_m2} [facility] Comment on above: Result Comment: eGFR (Estimated [...] GFR. Performed By: #### C BC, CMP ####[facility] [address] [place] [address] Glucose [Mass/Vol] 123 mg/dL High 74-99 [facility] Comment on above: Result Comment: The [place] Diabetes Association (ADA) provides guidance for cutoff [...] Standards of Medical Care in Diabetes 2016, [place] [employer]. Diabetes Care. 2016.39(Suppl 1). Performed By: #### C BC, CMP ####[place] [address] Potassium [Moles/Vol] 4.4 mmol/L Normal 3.7-5.1 [facility] Comment on above: Performed By: #### C BC, CMP ####[facility] [address] [place] [address] Protein [Mass/Vol] 7.4 g/dL Normal 6.3-8.0 [facility] Comment on above: Performed By: #### C BC, CMP ####[place] [address] Sodium [Moles/Vol] 134 mmol/L Low 136-144 [facility] Comment on above: Performed By: #### C BC, CMP ####[facility] [address] [place] [address] Urea nitrogen [Mass/Vol] 21 mg/dL Normal 9-24 [facility] Comment on above: Performed By: #### C BC, CMP ####[facility] [address] [place] [phone] THERAPY NTon 02-02-2019 THERAPY NT HNO ID: [id number] Author: Brook (Transfer Station Attendant) Jama Marie CCC/CDL FLATBED TRUCK DRIVER Service: Speech/Swallow Author Type: Speech Language Pathologist Type: Therapy (PT/OT/Speech/Resp) Filed: 02/02/2019 9:27 AM Note Text: Speech Therapy Treatment SERVICE DATE: 02/02/2019 SERVICE TIME: 849 to 919 ROOM: [place] [address] Nursing Recommendations: Reinforce use of swallowing strategies [...] IDDSI Level 0 diet consistency while utilizing compensatory/swallowi ng strategies given no cues in 100% of trials so that the patient will minimize the signs/symptoms of dysphagia. ? -GOAL DISCONTINUED: Patient will participate in a Esophagram to thoroughly evaluate the esophageal phase of the swallow, which cannot be substantiated through a clinical swallowing evaluation only. Through further diagnostic testing a definitive diagnosis/identificat ion of the patient's current swallowing function and recommended treatment plan can be established. Patient /Caregiver Goals: Eat/Drink Without Restrictions;Go Home Progress Toward Goals: Progressing as expected Speech Rehab Potential: Good PLAN: Treatment Frequency (times per week): 2 Current admission Treatment Interventions: Dysphagia Management Plan of Care Developed with: Patient;Caregiver TREATMENT INTERVENTIONS: Therapy Diagnosis: Dysphagia, pharyngoesophageal phase(Highly suspect Esophageal Dysphagia) Interventions Provided: Dysphagia Therapy (25968) $ Dysphagia Therapy (17985) Billed Units: 1 unit Skilled Interventions: Instructed [...] for this therapy evaluation/treatment. SIGNATURE: Brook Marie [facility] FLATBED TRUCK DRIVER PATIENT NAME: Jorge Covington DATE: February 02, 2019 TIME: 9:23 AM [facility] ANES Diana 02-01-2019 ANES POST HNO ID: [id number] Author: Orlando Sparks MD Service: Anesthesiology Author [...] 01, 2019 TIME: 12:29 PM PAGER/CONTACT #: [facility] ANES PREOPon 02-01-2019 ANES PREOP HNO ID: [id number] Author: Lemuel Beal Service: Anesthesiology Author Type: Anesthesiologist Type: Anesthesia PreOp Filed: 02/01/2019 11:15 AM Note Text: ANESTHESIOLOGY DAY OF SURGERY NOTE SERVICE DATE: 02/01/2019 SERVICE TIME: 11:14 AM : 1955 Procedure(s) (LRB): EGD (N/A) Surgeon(s): Magy Orosco Estimated body mass index is 35.44 kg/m? as calculated from the following: Height as of this encounter: 167.6 cm (5' 6). Weight as of this encounter: 99.6 kg [...] Without Sciatica Copd (Chronic Obstructive Pulmonary Disease) (Formerly [facility]) Hypothyroidism Gerd (Gastroesophageal Reflux Disease) Overactive Bladder Septicemia Due to Klebsiella Pneumoniae (Formerly [facility]) PAST MEDICAL HISTORY Diagnosis Date - Closed fracture of cervical vertebra ([facility]) 05/07/2018 - Closed fracture of thoracic vertebra with routine healing 05/07/2018 - COPD (chronic obstructive pulmonary disease) ([facility]) - History of cervical fracture 01/28/2018 - Hypothyroidism - 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 No pertinent surgical history. [...] mg INTRAVENOUS BID AC (0600/1600) Everton Gomes (Lacquer Dipping Machine Operator) [place] 40 mg at 02/01/19 0534 - [MAR [...] BREAKFAST Shirley M Esterle 200 mg at 01/31/19 0957 - [MAR Hold due to Transfer] oxybutynin XL 5 mg tab(s) (DITROPAN XL) 5 mg ORAL DAILY Shirley M Esterle 5 mg at 01/31/19 0957 - [MAR Hold due to Transfer] heparin [...] February 01, 2019 TIME: 11:14 AM CSN: [id number] [facility] Basic Metabolic Panlon 02-01 Anion gap [Moles/Vol] 12 mmol/L Normal 9-18 [facility] Comment on above: Performed By: #### C RAFAEL, BMP ####[facility] [address]721[address]160 Calcium [Mass/Vol] 9.7 mg/dL Normal 8.5-10.2 [facility] Comment on above: Performed By: #### C RAFAEL, BMP ####[facility] [address]z0746 [address]721[address]5160 Chloride [Moles/Vol] 100 mmol/L Normal 97-105 [facility] Comment on above: Performed By: #### C BC, BMP ####[facility] W[address]zzmxqep5962 [address]721-5160 CO2 [Moles/Vol] 24 mmol/L Normal 22-30 [facility] Comment on above: Performed By: #### C BC, BMP ####[facility] [address] [place] [phone] Creatinine [Mass/Vol] 0.71 mg/dL Low 0.73-1.22 [facility] Comment on above: Performed By: #### Beatriz HALL, MILES ####[facility] [address] [place] [phone] eGFR- Amer. >60 [facility] Comment on above: Performed By: #### Beatriz HALL, MILES ####[facility] Eatnbhxozr2118 [address] GFR/1.73 sq M predicted among non-blacks MDRD (S/P/Bld) [Vol rate/Area] mL/min/{1.73_m2} [facility] Comment on above: Result Comment: eGFR (Estimated [...] reflect actual GFR. Performed By: #### Beatriz HALL, MILES ####[facility] Z[address]yu7150 [address] Glucose [Mass/Vol] 124 mg/dL High 74-99 [facility] Comment on above: Result Comment: The [place] Diabetes Association (ADA) provides guidance for cutoff [...] Standards of Medical Care in Diabetes 2016, [place] Diabetes [employer]. Diabetes Care. 2016.39(Suppl 1). Performed By: #### C BC, BMP ####[facility] [address] [place] [address] Potassium [Moles/Vol] 4.5 mmol/L Normal 3.7-5.1 [facility] Comment on above: Performed By: #### C BC, BMP ####[facility] [address] [place] [address] Sodium [Moles/Vol] 136 mmol/L Normal 136-144 [facility] Comment on above: Performed By: #### C BC, BMP ####[facility] [address] [place] [address] Urea nitrogen [Mass/Vol] 22 mg/dL Normal 9-24 [facility] Comment on above: Performed By: #### C BC, BMP ####[facility] [address] [place] [address] CASE MANAGEMon 02-01-2019 CASE MANAGEM HNO ID: [id number] Author: Florence (Rn) JAZZY Mullins Service: Care Management Author Type: Registered Nurse Type: Care Mgt Progress Note Filed: 02/01/2019 4:33 PM Note Text: CARE MANAGEMENT PROGRESS NOTE SERVICE DATE: 02/01/2019 SERVICE TIME: 09:00 AM LOS: 10 days Needs Prior to Discharge: Discharge Transportation;Other: See Comment(medical clearance) Precert obtained from insurance for [facility] [place]. Call placed to Dasia to update. She [...] 01, 2019 TIME: 4:31 PM PAGER/CONTACT #: [phone] [facility] CBCon 02-01-2019 Erythrocyte distribution width (RBC) [Ratio] 17.5 % High 11.5-15.0 [facility] Comment on above: Performed By: #### C , BMP ####[facility] [address] [place] [address] Hematocrit (Bld) [Volume fraction] 42.5 % Normal 39.0-51.0 [facility] Comment on above: Performed By: #### C RAFAEL, BMP ####[facility] [address]we8405 [address]721[address]160 Hemoglobin (Bld) [Mass/Vol] 13.6 g/dL Normal 13.0-17.0 [facility] Comment on above: Performed By: #### C RAFAEL, BMP ####[facility] [address]jh[address]721[address]5160 MCH (RBC) [Entitic mass] 29.6 pG Normal 26.0-34.0 [facility] Comment on above: Performed By: #### C RAFAEL, BMP ####[facility] [address] [place] [phone] MCHC (RBC) [Mass/Vol] 32.0 g/dL Normal 30.5-36.0 [facility] Comment on above: Performed By: #### Beatriz HALL, BMP ####[facility] [address] [place] [phone] MCV (RBC) [Entitic vol] 92.6 fL Normal 80.0-100.0 [facility] Comment on above: Performed By: #### C RAFAEL, BMP ####[facility] [address] [place] [phone] Platelet mean volume (Bld) [Entitic vol] 9.5 fL Normal 9.0-12.7 [facility] Comment on above: Performed By: #### Beatriz HALL, BMP ####[facility] [address]32[address] [place] [phone] Platelets (Bld) [#/Vol] 405 10*3/uL High 150-400 [facility] Comment on above: Performed By: #### C RAFAEL, BMP ####[facility] [address] [place] [phone] RBC (Bld) [#/Vol] 4.59 10*6/uL Normal 4.20-6.00 [facility] Comment on above: Performed By: #### C RAFAEL, BMP ####[facility] Gom[address]ysc7101 [address]721[address]160 WBC (Bld) [#/Vol] 11.05 10*3/uL High 3.70-11.00 [facility] Comment on above: Performed By: #### C , [facility] ####[facility] [address] [place] [phone] CONSULTon 02-01-2019 CONSULT HNO ID: [id number] Author: Magy Orosco Service: Gastroenterology Author Type: [...] COPD, hypothyroidism, GERD who was admitted to [facility] 01/[facility]19 with acute respiratory failure with hypercapnea. [...] ?F) Temporal 83 18 92 % ? 01/31/19 2328 104/62 36.6 ?C (97.9 ?F) Temporal 82 [...] Cooperative. NAD EYES: No scleral icterus SKIN: [place] in color. No jaundice LUNGS: Scattered rhonchi [...] COLONOSCOPY Patient reports many years ago at [place] - further details unknown ASSESSMENT 1- Esophageal [...] DATE: February 01, 2019 TIME: 9:16 AM [facility] NURSING PROGon 02-01-2019 NURSING PROG HNO ID: [id number] Author: Zac (Rn) JAZZY Lyles Service: Nursing Author Type: Registered Nurse Type: Nursing Progress Note Filed: 02/01/2019 1:58 PM Note Text: Nursing Progress Note Patient Name: Jorge Covington Patient Location: [place] [address]/[facility] -1 Daily Note: Pt awake, a/ox2, on RA, [...] and keep pt NPO at this time. 0930-spoke with DAVID Le with GI group, hold subq heparin until they see pt and tests are done. 0955-spoke with DAVID Le with GI group, dc'ing esophagram, pt to have EGD today estimate time 1115. Xray will be getting pt. 1035-pt off floor for xray and EGD. 1054- updated with above info. 1345-pt passed bedside swallow eval, call out to Mimi in regards to diet order. This note was completed by: Zac Lyles RN [facility] NUTRITIONon 02-01-2019 NUTRITION HNO ID: [id number] Author: Yue Rahman) Jimmy Service: Nutrition Therapy [...] 22 Gauge (Active) Height: 167.6 cm (5' 6) Admission Weight: 107 kg (236 lb) Current [...] DATE: February 01, 2019 TIME: 9:35 AM [facility] PROGRESSon 02-01-2019 PROGRESS HNO ID: [id number] Author: Shirley Romo Service: ? Author Type: [...] ?F) Temporal 83 18 92 % ? 01/31/19 2328 104/62 36.6 ?C (97.9 ?F) Temporal 82 [...] sensitive to rocephin Medication and Non-Pharmacologic VTE Prophylaxis/Anticoagu lants Anticoagulant AND Antiplatelet Medications (From admission, onward) Start Dose Route Frequency Ordered Stop 01/22/192229 [MAR Hold due to Transfer] heparin 5,000 [...] 01, 2019 TIME: 11:44 AM PAGER/CONTACT #: [phone] [facility] SURGICAL PATHOLOGYon 019 SURGICAL PATHOLOGY Specimen originated from [facility] Specimen #: [id number] Submitting Physician: MAGY OROSCO M.D. FINAL DIAGNOSIS Esophagogastric junction, biopsy - Mild acute esophagitis. - No evidence of intestinal metaplasia or dysplasia. - GMS fungal stain is negative. KAREEN LARKIN MD (Electronic Signature) ____ SPECIMEN SUBMITTED A: ESOPHAGOGASTRIC JUNCTION, BIOPSY CLINICAL DATA DYSPHAGIA GROSS DESCRIPTION A. Received in formalin is one piece of bonilla, soft tissue measuring 0.5 x 0.2 x 0.1 cm. Totally submitted in one cassette. Gross examination performed at [facility], [address] [place], [place] [id number] AW 02/01/2019 5:08:12 PM Date of Report: 02/02/2019 Date of Procedure: 02/01/2019 Date of Receipt: 02/01/2019 Submitted by: MAGY OROSCO M.D. Location: [address] [place] [address] Diagnostic interpretation performed at [facility], [address] [place] [address]. CLIA Number: [id number] [facility] THERAPY NTon 02-01-2019 THERAPY NT HNO ID: [id number] Author: Brook (Transfer Station Attendant) Jama Marie CCC/CDL FLATBED TRUCK DRIVER Service: Speech/Swallow Author Type: Speech Language Pathologist Type: Therapy (PT/OT/Speech/Resp) Filed: 02/01/2019 8:39 AM Note Text: Speech Therapy Clinical Swallow Evaluation SERVICE DATE: 02/01/2019 SERVICE TIME: 0750 to 0828 ROOM: [place] [address] Nursing Recommendations: Reinforce use of swallowing strategies [...] the turkey sandwich -while at bedside this CDL FLATBED TRUCK DRIVER noted significant / reoccurring episodes of burping, [...] IDDSI Level 0 diet consistency while utilizing compensatory/swallowi ng strategies given no cues in 100% of trials so that the patient will minimize the signs/symptoms of dysphagia. -Patient will participate in a Esophagram to thoroughly evaluate the esophageal phase of the swallow, which cannot be substantiated through a clinical swallowing evaluation only. Through further diagnostic testing a definitive diagnosis/identificat ion of the patient's current swallowing function and recommended treatment plan can be established. Patient /Caregiver Goals: Eat/Drink Without Restrictions;Go Home Speech Rehab Potential: Good PLAN: Treatment Frequency (times per week): 5 Current admission Treatment Interventions: Dysphagia Management Plan of Care Developed with: Patient;Caregiver TREATMENT INTERVENTIONS: Therapy Diagnosis: Dysphagia, pharyngoesophageal phase(Highly suspect Esophageal Dysphagia) Interventions Provided: Clinical Swallow Evaluation (16632) $ Clinical Swallow Evaluation (94415) Billed Units: 1 unit Clinical Swallowing assessment [...] for this therapy evaluation/treatment. SIGNATURE: Brook Marie CCC-CDL FLATBED TRUCK DRIVER PATIENT NAME: Jorge Covington DATE: February 01, 2019 TIME: 8:34 AM [facility] XR CHEST 2V FRONTAL/LATon XR CHEST 2V FRONTAL/LAT * * *Final Repor t* * * DATE OF EXAM: Feb 01 2019 10:56AM [facility] 5291 - XR CHEST 2V FRONTAL/LAT / PROCEDURE REASON: Aspiration * * * * Physician Interpretation * * * * EXAMINATION: CHEST RADIOGRAPH (2 VIEW FRONTAL and LATERAL) CLINICAL HISTORY: Aspiration, Cough, new onset MQ: XC2_5 Comparison: 01/26/2019 RESULT: Lines, tubes, and devices: None. Lungs and pleura: Bibasilar opacifications suspicious for pleural effusions, underlying atelectasis/infiltrat e not excluded. No vascular engorgement or pneumothorax. Cardiomediastinal silhouette: Stable cardiomediastinal silhouette. Other: Hardware overlies the lower cervical spine. IMPRESSION: Bibasilar pleural effusions, underlying processes not excluded. Project Manager/Design Manager: ALDO Transcribe Date/Time: Feb 01 2019 12:29P Dictated by : JANELLE THOMAS MD This examination was interpreted and the report reviewed and electronically signed by: JANELLE THOMAS MD on Feb 01 2019 12:30PM EST [id number] [facility] Basic Metabolic Panlon 01-31 Anion gap [Moles/Vol] 10 mmol/L Normal 9-18 [facility] Comment on above: Performed By: #### C BC, BMP ####[facility] [address] [place] [address] Calcium [Mass/Vol] 9.4 mg/dL Normal 8.5-10.2 [facility] Comment on above: Performed By: #### C BC, BMP ####[facility] [address] [place] [address] Chloride [Moles/Vol] 103 mmol/L Normal 97-105 [facility] Comment on above: Performed By: #### C BC, BMP ####[facility] [address] [place] [address] CO2 [Moles/Vol] 25 mmol/L Normal 22-30 [facility] Comment on above: Performed By: #### C BC, BMP ####[facility] [address] [place] [address] Creatinine [Mass/Vol] 0.77 mg/dL Normal 0.73-1.22 [facility] Comment on above: Performed By: #### C BC, BMP ####[facility] [address] [place] [address] eGFR- Amer. >60 [facility] Comment on above: Performed By: #### C BC, BMP ####[facility] [address] [place] [address] GFR/1.73 sq M predicted among non-blacks MDRD (S/P/Bld) [Vol rate/Area] mL/min/{1.73_m2} [facility] Comment on above: Result Comment: eGFR (Estimated [...] reflect actual GFR. Performed By: #### C , BMP ####[facility] [address] [place] [phone] Glucose [Mass/Vol] 114 mg/dL High 74-99 [facility] Comment on above: Result Comment: The [place] Diabetes Association (ADA) provides guidance for cutoff [...] Standards of Medical Care in Diabetes 2016, [place] Diabetes [employer]. Diabetes Care. 2016.39(Suppl 1). Performed By: #### C BC, BMP ####[facility] [address] [place] [phone] Potassium [Moles/Vol] 4.6 mmol/L Normal 3.7-5.1 [facility] Comment on above: Performed By: #### C BC, BMP ####[facility] [address] [place] 1908460 Sodium [Moles/Vol] 138 mmol/L Normal 136-144 [facility] Comment on above: Performed By: #### C BC, BMP ####[facility] [address] [place] [address]84[address] Urea nitrogen [Mass/Vol] 24 mg/dL Normal 9-24 [facility] Comment on above: Performed By: #### C BC, BMP ####[facility] [address] CASE MANAGEMon 01-31-2019 CASE MANAGEM HNO ID: [id number] Author: Florecne Lowe) JAZZY Mullins Service: Care Management Author Type: Registered Nurse Type: Care Mgt Progress Note Filed: 01/31/2019 3:04 PM Note Text: CARE MANAGEMENT PROGRESS NOTE SERVICE DATE: 01/31/2019 SERVICE TIME: 2:59 PM LOS: 9 days Needs Prior to Discharge: Precertification;Disc harge Transportation CM met with patient at bedside and received call from Dasia regarding discharge. Awaiting precert for admission to [facility] [place]. wanted to change SNF location to [facility] SNF she called them and they told her they had a bed. Received call from [facility], unfortunately was transferred to acute rehab area which does have a bed, SNF does not. Patient does not meet criteria for their acute rehab. SNF will not have a bed open until Thursday. Discussed with Dasia this updated information from [facility]. Discussed with her sending pt to [facility] after we get precert, then having them transfer him to [facility] when their bed opens. reluctant to agree, doesn't think the facility will do that. Has had bad experience with another facility in the past. is calling her insurance company and will call CM back SIGNATURE: Florence Mullins RN PATIENT NAME: Jorge Covington DATE: January 31, 2019 TIME: 2:59 PM PAGER/CONTACT #: [phone] Normal [facility] CBCon 01-31-2019 Erythrocyte distribution width (RBC) [Ratio] 17.6 % High 11.5-15.0 [facility] Comment on above: Performed By: #### C BC, BMP ####[facility] [address] [place] [phone] Hematocrit (Bld) [Volume fraction] 41.3 % Normal 39.0-51.0 [facility] Comment on above: Performed By: #### C BC, BMP ####[facility] [address] [place] [phone] Hemoglobin (Bld) [Mass/Vol] 13.1 g/dL Normal 13.0-17.0 [facility] Comment on above: Performed By: #### C BC, BMP ####[facility] [phone] MCH (RBC) [Entitic mass] 29.6 pG Normal 26.0-34.0 [facility] Comment on above: Performed By: #### C BC, BMP ####[facility] [address] [place] [phone] MCHC (RBC) [Mass/Vol] 31.7 g/dL Normal 30.5-36.0 [facility] Comment on above: Performed By: #### C BC, BMP ####[facility] [address] [place] [phone] MCV (RBC) [Entitic vol] 93.4 fL Normal 80.0-100.0 M [facility] Comment on above: Performed By: #### C RAFAEL, BMP ####[facility] [address] [place] [phone] Platelet mean volume (Bld) [Entitic vol] 9.3 fL Normal 9.0-12.7 [facility] Comment on above: Performed By: #### Beatriz HALL, BMP ####[facility] [address] [place] [phone] Platelets (Bld) [#/Vol] 374 10*3/uL Normal 150-400 [facility] Comment on above: Performed By: #### C RAFAEL, BMP ####[facility] [address] [place] [phone] RBC (Bld) [#/Vol] 4.42 10*6/uL Normal 4.20-6.00 [facility] Comment on above: Performed By: #### Beatriz HALL, BMP ####[facility] [address] [place] [phone] WBC (Bld) [#/Vol] 9.46 10*3/uL Normal 3.70-11.00 [facility] Comment on above: Performed By: #### Beatriz HALL, BMP ####[facility] [address] [place] [phone] PROGRESSon 01-31-2019 PROGRESS HNO ID: [id number] Author: Everton Kuhn Service: General Internal Medicine Author Type: Nurse Practitioner Type: Progress Notes Filed: 01/31/2019 8:21 PM Note Text: INCIDENTAL PROGRESS NOTE Name: Jorge Covington SERVICE DATE: 01/31/2019 SERVICE TIME: 2010 ATTENDING: Dr. Shirley Romo Subjective INTERVAL HPI: Patient admitted for COPD exacerbation on 01/22. Today nursing calls FLORIST'S DECORATOR with complaints of patient choking on a turkey sandwich. FLORIST'S DECORATOR at bedside to see patient and his [...] -States [facility] -Make [facility] NPO -ST consult 2. GERD -Hx of GERD -States increased symptoms -Also has noted #1 -Change PPI to BID IV -Increase HOB -Await ST consult Everton Kuhn APRN.LUPE SIGNATURE: Everton Kuhn APRN.HEAD BAKER PATIENT NAME: Jorge Covington DATE: January 31, 2019 TIME: 8:11 PM PAGER: [phone] [facility] THERAPY NTon 01-31-2019 THERAPY NT HNO ID: [id number] Author: Drea De La RosaOt/LDemi Burciaga Service: Occupational Therapy Author Type: Occupational Therapist Type: Therapy (PT/OT/Speech/Resp) Filed: 01/31/2019 1:20 PM Note Text: Occupational Therapy Treatment SERVICE DATE: 01/31/2019 SERVICE TIME: 1248 to 1300 ROOM: [place] [address] Recommended Discharge Disposition: Subacute/SNF Recommended Discharge Disposition Comments: Pt continues to present below baseline and requires continued skilled OT to increase strength and endurance to maximize independence in ADLs and functional mobility Justification For Post Acute Needs: Living the community premorbidly;Medically complex;Motivated;Pedro Pablo ling to participate;Anticipat e that patient will require daily (5x/wk) skilled therapy in a post-acute facility setting at the time of acute hospital discharge;May not tolerate higher intensity programing Anticipated Discharge Needs: (Recommending SNF ) OT Recommendations to Nursing: With assist of 2 people;Utilize bed in Chair Position;Edge of bed ADL?s;Encourage patient participation with in-bed ADL?s OT 6 Clicks Score: 12 Precautions/Activity Restrictions: Bed/Chair Alarm;Fall Risk;Lines/Tubes/Drai ns Precaution/Activity Restriction Comments: standard, mobilize ASSESSMENT: Pt [...] Home Management;Energy Conservation Training;Functional Mobility Training;Balance Training;Cognitive Training;Strengthenin g Plan of Care developed with: Patient TREATMENT INTERVENTIONS: Therapy Diagnosis: Reduced mobility-other;Decrea sed activities of daily living (ADL);Muscle Weakness (generalized);General symptoms and signs-other;Signs and Symptoms Involving Cognitive Functions and Awareness Interventions Provided: Self Chcf Management (14032) Self Chcf Management (24684) Treatment Minutes: 12 1 unit Skilled Intervention(s): [...] spouse completes Equipment Owned: Hospital Bed;Wheeled Walker;Shower Chair;Wheelchair;Othe r: See Comment(slide board, brace/AFO R LE) Prior Functional Level: Required Assistance;History of Falls Assistance Required With: Cleaning;Laundry;Meal s;Medication Management;Safety;Em f Care;Shopping;Transpo rtation;Wheelchair Mobility Prior Functional Level Comments: POTATO PANCAKE FRIER patient reports primarily w/c/bed bound, pt is supervision for slideboard transfers to/from w/c/commode/shower chair/hospital bed/car, spouse assists with all ADLs, spouse fully completes all IADLs and driving, reports x 2 falls out of w/c in the past 6 months, mod I for w/c management around home and up ramp into home(active with home PT services, + wears brace/AFO R LE) OBJECTIVE: Cognition/Communicati on Deficits Orientation Deficits: Confused;Not oriented to Place;Not [...] Activity Tolerance (in minutes): 8(sitting EOB with POTATO PANCAKE FRIER earlier ) Please see discipline specific clinical documentation flowsheet for complete details for this therapy evaluation/treatment. SIGNATURE: Drea Burciaga OT/Eliseo PATIENT NAME: Jorge Covington DATE: January 31, 2019 TIME: 1:13 PM [facility] THERAPY NT HNO ID: [id number] Author: Melvi Ledezma Service: Physical Therapy Author Type: Concrete Inspector Type: Therapy (PT/OT/Speech/Resp) Filed: 02/02/2019 7:17 AM Note Text: Attestation signed by Philip De La RosaPt) Nadine at 02/03/2019 7:17 AM I reviewed and agree with the documentation corresponding to this therapy visit. SIGNATURE: Philip Mccoy PT DATE: February 03, 2019 TIME: 7:17 AM Physical Therapy Treatment SERVICE DATE: 01/31/2019 SERVICE TIME: 1235 to 1250 ROOM: [place] [address] Recommended Discharge Disposition: Subacute/SNF Recommended Discharge Disposition [...] Clicks Score: 8 Precautions/Activity Restrictions: Bed/Chair Alarm;Fall Risk;Lines/Tubes/Drai ns Precaution/Activity Restriction Comments: standard, mobilize ASSESSMENT : [...] Current admission Treatment Interventions: Education;Energy Conservation Training;Joint Mobility;Strengthenin g;Functional Mobility Training;Balance Training;Neuromuscula r Re-education Plan of Care developed with: Patient TREATMENT INTERVENTIONS: Therapy Diagnosis: Reduced mobility-other Interventions Provided: Therapeutic Exercise (08642);Therapeutic Activity (47275) Therapeutic Exercise (45573) Treatment Minutes: 10 1 unit Skilled Intervention(s): [...] frequent performance of anti-embolic exercises Therapeutic Activity (21828) Treatment Minutes: 3 0 units Skilled Intervention(s): [...] spouse completes Equipment Owned: Hospital Bed;Wheeled Walker;Shower Chair;Wheelchair;Othe r: See Comment(slide board, brace/AFO R LE) Prior Functional Level: Required Assistance;History of Falls Assistance Required With: Cleaning;Laundry;Meal s;Medication Management;Safety;Em f Care;Shopping;Transpo rtation;Wheelchair Mobility Prior Functional Level Comments: POTATO PANCAKE FRIER patient reports primarily w/c/bed bound, pt is [...] DATE: January 31, 2019 TIME: 12:59 PM Normal [facility] Basic Metabolic Panlon 01-30 Anion gap [Moles/Vol] 12 mmol/L Normal 9-18 [facility] Comment on above: Performed By: #### C BC, BMP ####[facility] [address] [place] [address] Calcium [Mass/Vol] 9.5 mg/dL Normal 8.5-10.2 [facility] Comment on above: Performed By: #### C BC, BMP ####[facility] [address] [place] [address] Chloride [Moles/Vol] 100 mmol/L Normal 97-105 [facility] Comment on above: Performed By: #### C BC, BMP ####[facility] [address] [place] [address] CO2 [Moles/Vol] 26 mmol/L Normal 22-30 [facility] Comment on above: Performed By: #### C BC, BMP ####[facility] [address] [place] [address] Creatinine [Mass/Vol] 0.79 mg/dL Normal 0.73-1.22 [facility] Comment on above: Performed By: #### C BC, BMP ####[facility] [address] [place] [address] eGFR- Amer. >60 [facility] Comment on above: Performed By: #### C BC, BMP ####[facility] [address] [place] [address] GFR/1.73 sq M predicted among non-blacks MDRD (S/P/Bld) [Vol rate/Area] mL/min/{1.73_m2} [facility] Comment on above: Result Comment: eGFR (Estimated [...] GFR. Performed By: #### C RAFAEL, BMP ####[facility] [address] [place] [address] Glucose [Mass/Vol] 108 mg/dL High 74-99 [facility] Comment on above: Result Comment: The [place] Diabetes Association (ADA) provides guidance for cutoff [...] Standards of Medical Care in Diabetes 2016, [place] Diabetes [employer]. Diabetes Care. 2016.39(Suppl 1). Performed By: #### C RAFAEL, BMP ####[facility] [address] [place] [address] Potassium [Moles/Vol] 4.4 mmol/L Normal 3.7-5.1 [facility] Comment on above: Performed By: #### C RAFAEL, BMP ####[facility] [address] [place] [address] Sodium [Moles/Vol] 138 mmol/L Normal 136-144 [facility] Comment on above: Performed By: #### C BC, BMP ####[facility] [address] [place] [address] Urea nitrogen [Mass/Vol] 24 mg/dL Normal 9-24 [facility] Comment on above: Performed By: #### C BC, BMP ####[facility] [address] [place] [address] CBCon 01-30-2019 Erythrocyte distribution width (RBC) [Ratio] 17.8 % High 11.5-15.0 [facility] Comment on above: Performed By: #### C RAFAEL, BMP ####[facility] [address] [place] [address] Hematocrit (Bld) [Volume fraction] 40.4 % Normal 39.0-51.0 [facility] Comment on above: Performed By: #### Beatriz HALL, BMP ####[facility] [address] [place] [address] Hemoglobin (Bld) [Mass/Vol] 12.9 g/dL Low 13.0-17.0 [facility] Comment on above: Performed By: #### Beatriz HALL, BMP ####[facility] [address] [place] [address] MCH (RBC) [Entitic mass] 29.8 pG Normal 26.0-34.0 [facility] Comment on above: Performed By: #### Beatriz AHLL, BMP ####[place] [address] MCHC (RBC) [Mass/Vol] 31.9 g/dL Normal 30.5-36.0 [facility] Comment on above: Performed By: #### Beatriz HALL, BMP ####[facility] [address] [place] [address] MCV (RBC) [Entitic vol] 93.3 fL Normal 80.0-100.0 [facility] Comment on above: Performed By: #### Beatriz HALL, BMP ####[place] [address] Platelet mean volume (Bld) [Entitic vol] 9.7 fL Normal 9.0-12.7 [facility] Comment on above: Performed By: #### Beatriz HALL, BMP ####[facility] [address] [place] [address] Platelets (Bld) [#/Vol] 375 10*3/uL Normal 150-400 [facility] Comment on above: Performed By: #### Beatriz HALL, BMP ####[place] [address] RBC (Bld) [#/Vol] 4.33 10*6/uL Normal 4.20-6.00 [facility] Comment on above: Performed By: #### Beatriz HALL, BMP ####[facility] [address] [place] [address] WBC (Bld) [#/Vol] 8.69 10*3/uL Normal 3.70-11.00 [facility] Comment on above: Performed By: #### C BC, BMP ####[facility] [address] [place] [phone] NURSING PROGon 01-30-2019 NURSING PROG HNO ID: [id number] Author: Zac (Rn) JAZZY Lyles Service: Nursing Author Type: Registered Nurse Type: Nursing Progress Note Filed: 01/30/2019 8:53 AM Note Text: Nursing Progress Note Patient Name: Jorge Covington Patient [facility]: [facility] -1 Daily Note: Pt laying in bed, a/ox3, lungs cta slightly diminished in bases, on RA, denies sob, cough, cp. abd large but nontender +bsx4, no edema. Denies pain at this time. SR 71 on tele. This note was completed by: Zac Lyles RN Normal [facility] PROGRESSon 01-30-2019 PROGRESS HNO ID: [id number] Author: Shirley Romo Service: ? Author Type: [...] once approval obtained Medication and Non-Pharmacologic VTE Prophylaxis/Anticoagu lants Anticoagulant AND Antiplatelet Medications (From admission, onward) Start Dose Route Frequency Ordered Stop 01/22/192229 heparin 5,000 Units injection (Medical Risk Categories) 5,000 Units SUBCUTANEOUS EVERY 12 HOURS 01/22/192228 -- 01/22/192229 pneumatic compression stockings (de,vt) 01/22/191814 vte non-pharmacologic prophylaxis - none indicated (de,oh) 01/22/191814 activity - mobilize patient (de,vt) VTE Prophylaxis: VTE prophylaxis appropriate SIGNATURE: Shirley Romo DO PATIENT NAME: Jorge Covington DATE: January 30, 2019 TIME: 9:14 AM PAGER/CONTACT #: [phone] Normal [facility] Basic Metabolic Panlon 01-29 Anion gap [Moles/Vol] 9 mmol/L Normal 9-18 [facility] Comment on above: Performed By: #### Beatriz HALL, BMP ####[facility] [address] [place] [address] Calcium [Mass/Vol] 9.7 mg/dL Normal 8.5-10.2 [facility] Comment on above: Performed By: #### Beatriz HALL, BMP ####[facility] [address] [place] [address] Chloride [Moles/Vol] 97 mmol/L Normal 97-105 [facility] Comment on above: Performed By: #### Beatriz HALL, BMP ####[facility] [address] [place] [address] CO2 [Moles/Vol] 30 mmol/L Normal 22-30 [facility] Comment on above: Performed By: #### Beatriz HALL, BMP ####[facility] [address] [place] [address] Creatinine [Mass/Vol] 0.86 mg/dL Normal 0.73-1.22 [facility] Comment on above: Performed By: #### Beatriz HALL, BMP ####[facility] [address] [place], [place] [address]60 eGFR- Amer. >60 Normal [facility] Comment on above: Performed By: #### Beatriz HALL, BMP ####[facility] [address] [place], [place] [address] GFR/1.73 sq M predicted among non-blacks MDRD (S/P/Bld) [Vol rate/Area] mL/min/{1.73_m2} Normal [facility] Comment on above: Result Comment: eGFR (Estimated [...] GFR. Performed By: #### C RAFAEL, BMP ####[facility] [address] [place] [address] Glucose [Mass/Vol] 103 mg/dL High 74-99 [facility] Comment on above: Result Comment: The [place] Diabetes Association (ADA) provides guidance for cutoff [...] Standards of Medical Care in Diabetes 2016, [place] Diabetes [employer]. Diabetes Care. 2016.39(Suppl 1). Performed By: #### C RAFAEL, BMP ####[place] [address] Potassium [Moles/Vol] 4.5 mmol/L Normal 3.7-5.1 [facility] Comment on above: Performed By: #### C RAFAEL, BMP ####[place] [address] Sodium [Moles/Vol] 136 mmol/L Normal 136-144 [facility] Comment on above: Performed By: #### C BC, BMP ####[facility] [address] [place] [address] Urea nitrogen [Mass/Vol] 20 mg/dL Normal 9-24 [facility] Comment on above: Performed By: #### C RAFAEL, BMP ####[facility] [address] [place] [address] CBCon 01-29-2019 Erythrocyte distribution width (RBC) [Ratio] 18.0 % High 11.5-15.0 [facility] Comment on above: Performed By: #### C RAFAEL, BMP ####[facility] [address] [place] [phone] Hematocrit (Bld) [Volume fraction] 40.0 % Normal 39.0-51.0 [facility] Comment on above: Performed By: #### C RAFAEL, BMP ####[facility] [address] [place] [address] Hemoglobin (Bld) [Mass/Vol] 12.6 g/dL Low 13.0-17.0 [facility] Comment on above: Performed By: #### C RAFAEL, BMP ####[facility] [address] [place] [address] MCH (RBC) [Entitic mass] 29.7 pG Normal 26.0-34.0 [facility] Comment on above: Performed By: #### C RAFAEL, BMP ####[facility] [address] [place] [address] MCHC (RBC) [Mass/Vol] 31.5 g/dL Normal 30.5-36.0 [facility] Comment on above: Performed By: #### C RAFAEL, BMP ####[facility] [address] [place] [address] MCV (RBC) [Entitic vol] 94.3 fL Normal 80.0-100.0 [facility] Comment on above: Performed By: #### C RAFAEL, BMP ####[facility] [address] [place] [address] Platelet mean volume (Bld) [Entitic vol] 9.4 fL Normal 9.0-12.7 [facility] Comment on above: Performed By: #### C RAFAEL, BMP ####[facility] [address] [place] [id number] Platelets (Bld) [#/Vol] 363 10*3/uL Normal 150-400 [facility] Comment on above: Performed By: #### C RAFAEL, BMP ####[facility] [address] [place], [place] [phone] RBC (Bld) [#/Vol] 4.24 10*6/uL Normal 4.20-6.00 [facility] Comment on above: Performed By: #### C RAFAEL, BMP ####[facility] [address] [place], [place] [phone] WBC (Bld) [#/Vol] 7.41 10*3/uL Normal 3.70-11.00 [facility] Comment on above: Performed By: #### C BC, BMP ####[facility] Czuktydhjq6767 [phone] NURSING PROGon 01-29-2019 NURSING PROG HNO ID: [id number] Author: Zac De La RosaRn) JAZZY Lyles Service: Nursing Author Type: Registered Nurse Type: Nursing Progress Note Filed: 01/29/2019 8:03 AM Note Text: Nursing Progress Note Patient Name: Jorge Covington Patient Location: [facility]-0264 -1 Daily Note: Pt is a/ox2, lungs cta, denies sob, cp.was on 2L at 99% states does NOT use at home, took off pt is 95% will continue to monitor. abd large nontender, This note was completed by: Zac Lyles RN Normal [facility] PROGRESSon 01-29-2019 PROGRESS HNO ID: [id number] Author: Shirley Romo Service: ? Author Type: [...] ? 102.4 kg (225 lb 12 oz) 01/28/192356 134/74 37 ?C (98.6 ?F) Oral 63 18 99 % ? 01/28/192036 109/79 36.8 ?C (98.2 ?F) Oral 64 18 96 % ? 01/28/192020 ? ? ? 66 18 ? ? 01/28/192013 ? ? ? 70 18 98 % ? 01/28/19 165 ? ? ? 69 18 ? ? 01/28/19 164 ? ? ? 66 18 96 % [...] for snf obtained Medication and Non-Pharmacologic VTE Prophylaxis/Anticoagu lants Anticoagulant AND Antiplatelet Medications (From admission, onward) Start Dose Route Frequency Ordered Stop 01/22/192229 heparin 5,000 Units injection (Medical Risk Categories) 5,000 Units SUBCUTANEOUS EVERY 12 HOURS 01/22/192228 -- 01/22/192229 pneumatic compression stockings (de,vt) 01/22/191814 vte non-pharmacologic prophylaxis - none indicated (de,vt) 01/22/191814 activity - mobilize patient (de,vt) VTE Prophylaxis: VTE prophylaxis appropriate SIGNATURE: Shirley Romo DO PATIENT NAME: Jorge Covington DATE: January 29, 2019 TIME: 11:31 AM PAGER/CONTACT #: [phone] Normal [facility] Basic Metabolic Panlon 01-28 Anion gap [Moles/Vol] 11 mmol/L Normal 9-18 [facility] Comment on above: Performed By: #### Beatriz HALL, BMP ####[facility] [address] [place] [address] Calcium [Mass/Vol] 9.8 mg/dL Normal 8.5-10.2 [facility] Comment on above: Performed By: #### Beatriz HALL, BMP ####[facility] [address] [place] [address] Chloride [Moles/Vol] 104 mmol/L Normal 97-105 [facility] Comment on above: Performed By: #### Beatriz HALL, BMP ####[facility] [address] [place] [address] CO2 [Moles/Vol] 27 mmol/L Normal 22-30 [facility] Comment on above: Performed By: #### Beatriz HALL, BMP ####[facility] [address] [place] [address] Creatinine [Mass/Vol] 0.74 mg/dL Normal 0.73-1.22 [facility] Comment on above: Performed By: #### Beatriz HALL, BMP ####[facility] [address] [place] [address] eGFR- Amer. >60 Normal [facility] Comment on above: Performed By: #### Beatriz HALL, BMP ####[facility] [address] [place] [address] GFR/1.73 sq M predicted among non-blacks MDRD (S/P/Bld) [Vol rate/Area] mL/min/{1.73_m2} [facility] Comment on above: Result Comment: eGFR (Estimated [...] GFR. Performed By: #### C BC, BMP ####[facility] [address] [place] [address] Glucose [Mass/Vol] 151 mg/dL High 74-99 [facility] Comment on above: Result Comment: The [place] Diabetes Association (ADA) provides guidance for cutoff [...] Standards of Medical Care in Diabetes 2016, [place] Diabetes Association. Diabetes Care. 2016.39(Suppl 1). Performed By: #### C BC, BMP ####[facility] [address] [place] [address] Potassium [Moles/Vol] 4.4 mmol/L Normal 3.7-5.1 [facility] Comment on above: Performed By: #### C BC, BMP ####[place] [address] Sodium [Moles/Vol] 142 mmol/L Normal 136-144 [facility] Comment on above: Performed By: #### C BC, BMP ####[facility] [address] [place] [address] Urea nitrogen [Mass/Vol] 16 mg/dL Normal 9-24 [facility] Comment on above: Performed By: #### C BC, BMP ####[facility] [address] [place] [address] CASE MANAGEMon 01-28-2019 CASE MANAGEM HNO ID: [id number] Author: Florence De La RosaRn) JZAZY Mullins Service: Care Management Author Type: Registered Nurse Type: Care Mgt Progress Note Filed: 01/28/2019 12:53 PM Note Text: CARE MANAGEMENT PROGRESS NOTE SERVICE DATE: 01/28/2019 SERVICE TIME: 12:49 PM LOS: 6 days Needs Prior to Discharge: Precertification;Disc harge Transportation Call placed to patients Dasia to discuss discharge plan. Their first choice facility [facility] is able to accept. Facility has started [...] 28, 2019 TIME: 12:49 PM PAGER/CONTACT #: [phone] Normal [facility] CBCon 01-28-2019 Erythrocyte distribution width (RBC) [Ratio] 18.1 % High 11.5-15.0 [facility] Comment on above: Performed By: #### C BC, BMP ####[facility] [address] [place] [address] Hematocrit (Bld) [Volume fraction] 38.0 % Low 39.0-51.0 [facility] Comment on above: Performed By: #### C BC, BMP ####[facility] [address]fs[address] [place] [phone] Hemoglobin (Bld) [Mass/Vol] 12.1 g/dL Low 13.0-17.0 [facility] Comment on above: Performed By: #### C BC, BMP ####[facility] V[address]oc[address]kov9566 [address]5160 MCH (RBC) [Entitic mass] 30.1 pG Normal 26.0-34.0 [facility] Comment on above: Performed By: #### C BC, BMP ####[facility] [address] [place] [phone] MCHC (RBC) [Mass/Vol] 31.8 g/dL Normal 30.5-36.0 [facility] Comment on above: Performed By: #### C BC, BMP ####[facility] [address] [place], [place] [phone] MCV (RBC) [Entitic vol] 94.5 fL Normal 80.0-100.0 M [facility] Comment on above: Performed By: #### C RAFAEL, BMP ####[facility] Tqkndnkeps7041 [address]5160 Platelet mean volume (Bld) [Entitic vol] 9.8 fL Normal 9.0-12.7 [facility] Comment on above: Performed By: #### C RAFAEL, BMP ####[facility] Pkfnzvpgyk9214 [address]5160 Platelets (Bld) [#/Vol] 349 10*3/uL Normal 150-400 [facility] Comment on above: Performed By: #### C RAFAEL, BMP ####[facility] [address] [place], [place] [phone] RBC (Bld) [#/Vol] 4.02 10*6/uL Low 4.20-6.00 [facility] Comment on above: Performed By: #### C RAFAEL, BMP ####[facility] Gcqwkudrpk2606 [address]5160 WBC (Bld) [#/Vol] 8.04 10*3/uL Normal 3.70-11.00 [facility] Comment on above: Performed By: #### C RAFAEL, BMP ####[facility] [address] [place], [place] [phone] THERAPY NTon 01-28-2019 THERAPY NT HNO ID: [id number] Author: Melvi Ledezma Service: Physical Therapy Author Type: Concrete Inspector Type: Therapy (PT/OT/Speech/Resp) Filed: 01/28/2019 2:55 PM Note Text: Attestation signed by Faith Grant) Gerardo at 01/31/2019 8:38 AM I reviewed and agree with the assessment as documented above. SIGNATURE: Faith Carrillo, PT DATE: January 31, 2019 TIME: 8:38 AM Physical Therapy Treatment SERVICE DATE: 01/28/2019 SERVICE TIME: 1434 to 1449 ROOM: [place] [address] Recommended Discharge Disposition: Subacute/SNF Recommended Discharge Disposition [...] Clicks Score: 8 Precautions/Activity Restrictions: Bed/Chair Alarm;Fall Risk;Lines/Tubes/Drai ns Precaution/Activity Restriction Comments: standard, mobilize ASSESSMENT : [...] Current admission Treatment Interventions: Education;Energy Conservation Training;Joint Mobility;Strengthenin g;Functional Mobility Training;Balance Training;Neuromuscula r Re-education Plan of Care developed with: Patient TREATMENT INTERVENTIONS: Therapy Diagnosis: Reduced mobility-other Interventions Provided: Therapeutic Exercise (10069) Therapeutic Exercise (05558) Treatment Minutes: 15 1 unit Skilled Intervention(s): [...] stand again. Patient appropriate for PT per Yadira HOANG. Home Environment Patient Lives With: Spouse Assistance Available: 24 Hour(from spouse) Entry To Home: Stairs;With Rail;Ramp Number Of Stairs Into Home: 3(with B hand rails, can utilize simultaneously, uses ramp) Number Of Stairs To Bed/Bath: 0 Tub/Shower Type: walk in shower with chair, varies between sponge bathing and assist into showers with spouse Laundry: spouse completes Equipment Owned: Hospital Bed;Wheeled Walker;Shower Chair;Wheelchair;Othe r: See Comment(slide board, brace/AFO R LE) Prior Functional Level: Required Assistance;History of Falls Assistance Required With: Cleaning;Laundry;Meal s;Medication Management;Safety;Em f Care;Shopping;Transpo rtation;Wheelchair Mobility Prior Functional Level Comments: POTATO PANCAKE FRIER patient reports primarily w/c/bed bound, pt is [...] Toilet/Commode Gait Stairs Curb Step Car Transfer -M: 3: Sit at edge of bed Please see discipline specific clinical documentation flowsheet for complete details for this therapy evaluation/treatment. SIGNATURE: Melvi Ledezma PTA PATIENT NAME: Jorge Covington DATE: January 28, 2019 TIME: 2:53 PM [facility] THERAPY NT HNO ID: [id number] Author: Krystal (Ot/LDemi Harrington Service: Occupational Therapy Author Type: Occupational Therapist Type: Therapy (PT/OT/Speech/Resp) Filed: 01/28/2019 2:32 PM Note Text: Occupational Therapy Treatment SERVICE DATE: 01/28/2019 SERVICE TIME: 9346 to 6743 ROOM: [id number] Recommended Discharge Disposition: Subacute/SNF Recommended Discharge Disposition [...] Clicks Score: 12 Precautions/Activity Restrictions: Bed/Chair Alarm;Fall Risk;Lines/Tubes/Drai ns Precaution/Activity Restriction Comments: standard, mobilize ASSESSMENT: Pt [...] Home Management;Energy Conservation Training;Functional Mobility Training;Balance Training;Cognitive Training;Strengthenin g Plan of Care developed with: Patient TREATMENT INTERVENTIONS: Therapy Diagnosis: Reduced mobility-other;Decrea sed activities of daily living (ADL);Muscle Weakness (generalized);General symptoms and signs-other;Signs and Symptoms Involving Cognitive Functions and Awareness Interventions Provided: Therapeutic Activity (72720);Self Chcf Management (14308) Therapeutic Activity (25508) Treatment Minutes: 15 1 unit Skilled Intervention(s): [...] to supine with log roll technique. Self Chcf Management (50174) Treatment Minutes: 9 1 unit Skilled Intervention(s): [...] POC and discharge recommendation with rationale. RN, POTATO PANCAKE FRIER and CM notified of pt status and [...] spouse completes Equipment Owned: Hospital Bed;Wheeled Walker;Shower Chair;Wheelchair;Othe r: See Comment(slide board, brace/AFO R LE) Prior Functional Level: Required Assistance;History of Falls Assistance Required With: Cleaning;Laundry;Meal s;Medication Management;Safety;Em f Care;Shopping;Transpo rtation;Wheelchair Mobility Prior Functional Level Comments: POTATO PANCAKE FRIER patient reports primarily w/c/bed bound, pt is supervision for slideboard transfers to/from w/c/commode/shower chair/hospital bed/car, spouse assists with all ADLs, spouse fully completes all IADLs and driving, reports x 2 falls out of w/c in the past 6 months, mod I for w/c management around home and up ramp into home(active with home PT services, + wears brace/AFO R LE) OBJECTIVE: Cognition/Communicati on Deficits Orientation Deficits: Confused;Not oriented to Place;Not [...] complete details for this therapy evaluation/treatment. SIGNATURE: PORTILLO Hood PATIENT NAME: Jorge Covington DATE: January 28, 2019 TIME: 2:05 PM [facility] THERAPY NT HNO ID: [id number] Author: Krystal Vasquez/Krysten Harrington Service: Occupational Therapy Author Type: Occupational Therapist Type: Therapy (PT/OT/Speech/Resp) Filed: 01/28/2019 1:09 PM Note Text: OCCUPATIONAL THERAPY MISSED VISIT SERVICE DATE: 01/28/2019 SERVICE TIME: 1305 to 1305 ROOM: [place] [address] Attempted Treatment. Patient not seen due to Eating. Will re-attempt as schedule allows. SIGNATURE: PORTILLO Hood PATIENT NAME: Jorge Covington DATE: January 28, 2019 TIME: 1:09 PM [facility] Basic Metabolic Panlon 01-27 Anion gap [Moles/Vol] 10 mmol/L Normal - [facility] Comment on above: Performed By: #### C MILES HALL ####[facility] [address] [place], [place] [phone]#### FREET3 ####[facility] [address] [place] [phone] Calcium [Mass/Vol] 9.3 mg/dL Normal 8.5-10.2 [facility] Comment on above: Performed By: #### Beatriz BC, BMP ####[facility] [address] [place] [address]#### FREET3 ####[place] [address] [phone] Chloride [Moles/Vol] 106 mmol/L High 97-105 [facility] Comment on above: Performed By: #### Beatriz BC, BMP ####[facility] [address] [place] [address]#### FREET3 ####[place] [address] [address] [place] [phone] CO2 [Moles/Vol] 27 mmol/L Normal 22-30 [facility] Comment on above: Performed By: #### Beatriz HALL, BMP ####[place] [address]#### FRE[address]3 ####[place] [address] [address] [phone] Creatinine [Mass/Vol] 0.79 mg/dL Normal 0.73-1.22 [facility] Comment on above: Performed By: #### Beatriz HALL, BMP ####[place] [address]#### FRE[address] ####[place] [address] [address] [place] [phone] eGFR- Amer. >60 Normal [facility] Comment on above: Performed By: #### Beatriz BC, BMP ####[place] [address]#### FRE[address]3 ####[place] [address] [phone] GFR/1.73 sq M predicted among non-blacks MDRD (S/P/Bld) [Vol rate/Area] mL/min/{1.73_m2} Normal [facility] Comment on above: Result Comment: eGFR (Estimated [...] accurately reflect actual GFR. Performed By: #### MILES LUCIO ####[facility] [address] [place] [address]#### FREET3 ####[place] [address] [place], [place] [phone] Glucose [Mass/Vol] 110 mg/dL High 74-99 [facility] Comment on above: Result Comment: The [place] Diabetes Association (ADA) provides guidance for cutoff [...] Standards of Medical Care in Diabetes 2016, [place] Diabetes Association. Diabetes Care. 2016.39(Suppl 1). Performed By: #### MILES LUCIO ####[facility] [address] [place] [address]#### FREET3 ####[facility] [place], [place] [phone] Potassium [Moles/Vol] 4.1 mmol/L Normal 3.7-5.1 [facility] Comment on above: Performed By: #### MILES LUCIO ####[facility] [address] [place] [address]#### FREET3 ####[facility] [place], [place] [phone] Sodium [Moles/Vol] 143 mmol/L Normal 136-144 [facility] Comment on above: Performed By: #### C BC, BMP ####[place] [address]#### FREET3 ####[place] [address] [place] [address] [place] [phone] Urea nitrogen [Mass/Vol] 11 mg/dL Normal 9-24 [facility] Comment on above: Performed By: #### C BC, BMP ####[place] [address]#### FRE[address]3 ####[place] [address] [address] [phone] CBCon 01-27-2019 Erythrocyte distribution width (RBC) [Ratio] 18.2 % High 11.5-15.0 [facility] Comment on above: Performed By: #### C BC, BMP ####[place] [address]#### FRE[address]3 ####[place] [phone] Hematocrit (Bld) [Volume fraction] 36.3 % Low 39.0-51.0 [facility] Comment on above: Performed By: #### C BC, BMP ####[place] [address]#### FRE[address]3 ####[place] [address] [place] [address] [place] [phone] Hemoglobin (Bld) [Mass/Vol] 11.3 g/dL Low 13.0-17.0 [facility] Comment on above: Performed By: #### C BC, BMP ####[place] [address]#### FREET3 ####[place] [address] [place] [phone] MCH (RBC) [Entitic mass] 29.5 pG Normal 26.0-34.0 [facility] Comment on above: Performed By: #### C BC, BMP ####[facility] [address] [place] [address]#### FREET3 ####[facility] Ave[address] [place] [phone] MCHC (RBC) [Mass/Vol] 31.1 g/dL Normal 30.5-36.0 [facility] Comment on above: Performed By: #### C BC, BMP ####[facility] [address] [place] [address]#### FREET3 ####[place] [address] [address] [place] [phone] MCV (RBC) [Entitic vol] 94.8 fL Normal 80.0-100.0 [facility] Comment on above: Performed By: #### C RAFAEL, BMP ####[place] [address]#### FREET3 ####[place] [address] [address]C[place], [place] [phone] Platelet mean volume (Bld) [Entitic vol] 9.8 fL Normal 9.0-12.7 [facility] Comment on above: Performed By: #### C RAFAEL, BMP ####[place] [address]#### FREET3 ####[place] [address] [address] AveClevelH[place], [place] [phone] Platelets (Bld) [#/Vol] 308 10*3/uL Normal 150-400 [facility] Comment on above: Performed By: #### C BC, BMP ####[place] [address]#### FREET3 ####[place] [address] [address] AveClevelH[place], [place] [phone] RBC (Bld) [#/Vol] 3.83 10*6/uL Low 4.20-6.00 [facility] Comment on above: Performed By: #### C BC, BMP ####[place] [address]#### FREET3 ####[facility] [place], [place] [phone] WBC (Bld) [#/Vol] 8.30 10*3/uL Normal 3.70-11.00 [facility] Comment on above: Performed By: #### C BC, BMP ####[facility] [address] [place] [phone]#### FREET3 ####[facility] [address] [place], [place] [phone] CONSULT PROGon 01-27-2019 CONSULT PROG HNO ID: [id number] Author: Nathanael Lewis MD Service: Endocrinology Author [...] (Temporal) Resp 20 Ht 167.6 cm (5' 6) Wt 108.8 kg (239 lb 13.8 oz) [...] levels now measurable, improving. Nathanael Lewis MD [facility] Endocrinology and Metabolism [facility] January 27, 2019 11:17 AM Normal [facility] Free T3on 01-27-2019 Free T3 [Mass/Vol] 1.4 pg/mL Low 2.3-4.1 [facility] Comment on above: Performed By: #### C BC, BMP ####[facility] [address] [place], [place] [phone]#### FREET3 ####[facility] [address]zl[address] [place], [place] [phone] Free T4on 01-27-2019 Free T4 [Mass/Vol] 1.3 ng/dL Normal 0.9-1.7 [facility] Comment on above: Performed By: #### F T4 ####[facility] [place], [place] [phone] NUTRITIONon 01-27-2019 NUTRITION HNO ID: [id number] Author: Yue (Henry) Jimmy Service: Nutrition Therapy Author Type: Registered [...] 22 Gauge (Active) Height: 167.6 cm (5' 6) Admission Weight: 107 kg (236 lb) Current [...] DATE: January 27, 2019 TIME: 5:01 PM [facility] PROGRESSon 01-27-2019 PROGRESS HNO ID: [id number] Author: Shirley Romo Service: ? Author Type: [...] 69 26 95 % 167.6 cm (5' 6) 108.8 kg (239 lb 13.8 oz) 01/26/191999 ? ? ? 68 14 97 % ? ? 01/26/191927 ? ? ? 64 20 97 % ? ? 01/26/19 1915 ? 37 ?C (98.6 ?F) Oral ? [...] whenever approval obtained. Medication and Non-Pharmacologic VTE Prophylaxis/Anticoagu lants Anticoagulant AND Antiplatelet Medications (From admission, onward) Start Dose Route Frequency Ordered Stop 01/22/192229 heparin 5,000 Units injection (Medical Risk Categories) 5,000 Units SUBCUTANEOUS EVERY 12 HOURS 01/22/192228 -- 01/22/192229 pneumatic compression stockings (de,vt) 01/22/191814 vte non-pharmacologic prophylaxis - none indicated (de,oh) 01/22/191814 activity - mobilize patient (de,vt) VTE Prophylaxis: VTE prophylaxis appropriate SIGNATURE: Shirley Romo DO PATIENT NAME: Jorge Covington DATE: January 27, 2019 TIME: 3:44 PM PAGER/CONTACT #: [phone] [facility] ALLIED HEALTHon 01-26-2019 ALLIED HEALTH HNO ID: [id number] Author: DAVID Sykes (Ct) Service: ? Author Type: Clinical Retail Marketing Manager Type: Allied Health Filed: 01/26/2019 6:13 AM [...] DAVID Sykes January 26, 2019 6:13 AM [facility] Basic Metabolic Panlon 01-26 Anion gap [Moles/Vol] 11 mmol/L Normal 9-18 [facility] Comment on above: Performed By: #### T SH #### [facility] [address] [place] [phone] Calcium [Mass/Vol] 9.4 mg/dL Normal 8.5-10.2 [facility] Comment on above: Performed By: #### T SH #### [facility] [address] [place] [phone] Chloride [Moles/Vol] 109 mmol/L High 97-105 [facility] Comment on above: Performed By: #### T SH #### [facility] [address]5160 CO2 [Moles/Vol] 27 mmol/L Normal 22-30 [facility] Comment on above: Performed By: #### T SH #### [facility] [address]5160 Creatinine [Mass/Vol] 0.70 mg/dL Low 0.73-1.22 [facility] Comment on above: Performed By: #### T SH #### [facility] [address]5160 eGFR- Amer. >60 Normal [facility] Comment on above: Performed By: #### T SH #### [facility] [address] [place], [place] [phone] GFR/1.73 sq M predicted among non-blacks MDRD (S/P/Bld) [Vol rate/Area] mL/min/{1.73_m2} Normal [facility] Comment on above: Result Comment: eGFR (Estimated [...] GFR. Performed By: #### T SH #### [facility] [address] [place] [phone] Glucose [Mass/Vol] 128 mg/dL High 74-99 [facility] Comment on above: Result Comment: The [place] Diabetes Association (ADA) provides guidance for cutoff [...] Standards of Medical Care in Diabetes 2016, [place] Diabetes Association. Diabetes Care. 2016.39(Suppl 1). Performed By: #### T SH #### [facility] [address] [place] [address] Potassium [Moles/Vol] 3.9 mmol/L Normal 3.7-5.1 [facility] Comment on above: Performed By: #### T SH #### [facility] [address] [place] [address] Sodium [Moles/Vol] 147 mmol/L High 136-144 [facility] Comment on above: Performed By: #### T SH #### [facility] [address] [place] [address] Urea nitrogen [Mass/Vol] 9 mg/dL Normal 9-24 [facility] Comment on above: Performed By: #### T SH #### [facility] [address] [place], [place] [phone] CASE MANAGEMon 01-26-2019 CASE MANAGEM HNO ID: [id number] Author: Kari (Rn) JAZZY Toscano Service: ? Author Type: Registered Nurse Type: Care Mgt Progress Note Filed: 01/26/2019 12:10 PM Note Text: CARE MANAGEMENT PROGRESS NOTE SERVICE DATE: 01/26/2019 SERVICE TIME: 11:21 AM LOS: 4 days JAZZY PAVON met with patient at bedside to discuss discharge planning. Patient informed that Physical Therapy is recommending Jail Facility for discharge. JAZZY PAVON discussed freedom of choice with patient. Patient sates he is agreeable to fci facility at discharge. JAZZY PAVON provided and offered to read patient the [facility] Provider list for SNF choices patient states he does not have his glasses to read himself. Patient declines offer and requests that JAZZY PAVON call his spouse Abraham for fci facility choices. Patient provided his spouses contact information [phone]. JAZZY PAVON called and spoke to Abraham and read her the [facility] Provider List for SNF. FREEDOM OF CHOICE GIVEN: Yes [place] of choice explained to patient and patients spouse Abraham. Financial Disclosure Provided The patient and/or family has been given the Provider List: Yes Provider List: Jail Facility Preference: Jail Facility: [facility]. [facility] - [phone] 2. [facility] - [phone] 3. [facility] - [phone] Referrals sent in [employer] to SNF choices. SIGNATURE: Kari Toscano RN PATIENT NAME: Jorge Covington DATE: January 26, 2019 TIME: 11:21 AM PAGER/CONTACT #: [phone] [facility] CBCon 01-26-2019 Erythrocyte distribution width (RBC) [Ratio] 18.0 % High 11.5-15.0 [facility] Comment on above: Performed By: #### T SH #### [facility] [address] [phone] Hematocrit (Bld) [Volume fraction] 37.7 % Low 39.0-51.0 [facility] Comment on above: Performed By: #### T SH #### [facility] [address] [phone] Hemoglobin (Bld) [Mass/Vol] 12.0 g/dL Low 13.0-17.0 [facility] Comment on above: Performed By: #### T SH #### [facility] [phone] MCH (RBC) [Entitic mass] 29.6 pG Normal 26.0-34.0 [facility] Comment on above: Performed By: #### T SH #### [facility] [address] [phone] MCHC (RBC) [Mass/Vol] 31.8 g/dL Normal 30.5-36.0 [facility] Comment on above: Performed By: #### T SH #### [facility] 999 [facility] [phone] MCV (RBC) [Entitic vol] 93.1 fL Normal 80.0-100.0 M [facility] Comment on above: Performed By: #### T SH #### [facility] 999 [facility] [phone] Platelet mean volume (Bld) [Entitic vol] 9.9 fL Normal 9.0-12.7 [facility] Comment on above: Performed By: #### T SH #### [facility] 999 [facility] [phone] Platelets (Bld) [#/Vol] 334 10*3/uL Normal 150-400 [facility] Comment on above: Performed By: #### T SH #### [facility] [address] [phone] RBC (Bld) [#/Vol] 4.05 10*6/uL Low 4.20-6.00 [facility] Comment on above: Performed By: #### T SH #### [facility] [address] [phone] WBC (Bld) [#/Vol] 7.97 10*3/uL Normal 3.70-11.00 [facility] Comment on above: Performed By: #### T SH #### [facility] [address] [place] [phone] Free T3on 01-26-2019 Free T3 [Mass/Vol] 1.3 pg/mL Low 2.3-4.1 [facility] Comment on above: Performed By: #### F REET3 ####[facility] [address] [place], [place] [phone] Free T3 [Mass/Vol] Duplicate request Normal 2.3-4.1 [facility] Comment on above: Performed By: #### T SH #### [facility] [address] [place] [address] Free T4on 01-26-2019 Free T4 [Mass/Vol] Duplicate request Normal 0.9-1.7 [facility] Comment on above: Performed By: #### C BC, BMP, MG1, PHOS, FREET3, FT4 ####[facility] [address] [phone] Magnesiumon 01-26-2019 Magnesium [Mass/Vol] 2.1 mg/dL Normal 1.7-2.3 [facility] Comment on above: Performed By: #### T SH #### [facility] 1000 [facility] [phone] NURSING PROGon 01-26-2019 NURSING PROG HNO ID: [id number] Author: Lesly Borrego RN Service: Nursing Author Type: Registered Nurse Type: Nursing Progress Note Filed: 01/26/2019 10:13 PM Note Text: Nursing Progress Note Patient Name: Jorge Covington Patient Location: [facility] -1 Transfer Note: Patient transferred into room/unit 264 in stable condition. Actions taken: No futher actions taken at this time. Will continue to monitor and check with patient. This note was completed by: Lesly Borrego RN [facility] NURSING PROG HNO ID: [id number] Author: Goran Thomas RN Service: ? Author Type: Registered Nurse Type: Nursing Progress Note Filed: 01/26/2019 9:31 PM Note Text: Nursing Progress Note Patient Name: Jorge Covington [facility] [place] [facility] [place] Daily Note 212- Transferred via bed out of icu 1 to RM#264 via bed on 2L. All belongings sent with patient. VSS. Safety maintained. This note was completed by: Goran Thomas Rn [facility] PLAN OF CAREon 01-26-2019 PLAN OF CARE HNO ID: [id number] Author: Rossi Vásquez) Marleny Service: Endocrinology Author Type: Physician Type: Plan of Care Filed: 01/26/2019 11:11 AM Note Text: Plan of Care: -- monitoring thyroid labs daily with you -- no change today -- continue IV levothyroxine 150 mcg -- Free t4 daily -- TSH Thursday -- Will return Thursday to bedside and make comments when TSH returns Rossi Farmer MD [facility] PROGRESSon 01-26-2019 PROGRESS HNO ID: [id number] Author: Merrick Kuhn Service: Critical Care Author [...] the A/P section below. Please refer to [facility] for list of inpatient medications. VITAL SIGNS: BP 115/67 Pulse 75 Temp 36.6 ?C (97.9 ?F) (Axillary) Resp (!) 33 Ht 167.6 cm (5' 6) Wt 106.3 kg (234 lb 5.6 oz) SpO2 92% BMI 37.82 kg/m? Current Weight: Weight: 106.3 kg (234 lb 5.6 oz) Admission Weight: Weight: 107 kg (236 lb) PHYSICAL EXAM: Neuro:?oriented, Follows commands Pulmonary:???Clear; Reduced?bilateral bases??? Cardiovascular:?Regul ar rhythm? Abdomen:?Soft and Nontender Extremities:?Edema- Yes??Peripheral pulses- Present all extremities?? ? DATA: Diagnostic tests reviewed for today's visit: Most recent labs and imaging results. 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 Current Assessment AND Plan Assessment: H/O Hypothyroidism On Po Levothyroxine stopped taking as ran out of prescriptons PLAN: Endocrinology on board IV Levothyroxine Daily thyroid studies TSH on Thursday Pulmonary COPD (chronic obstructive pulmonary disease) ([facility]) 06/08/2018 - Present Acute respiratory failure ([facility]) 01/22/2019 - Present Current Assessment AND Plan Assessment: Intubated 01/22 overnight ---> Extubated 01/25 PLAN: Continue scheduled nebs Aggressive pulm toilet OOB ISS Infectious Disease Septicemia ([facility]) 01/23/2019 - Present Current Assessment AND Plan Assessment: Growing klebsiella in blood on Ceftriaxone, UA dirty, Urine Culture negative, past h/o UTI with Proteus which was sensitive to Ceftriaxone PLAN: Continue Ceftriaxone X 7 days total Medication and Non-Pharmacologic VTE Prophylaxis/Anticoagu lants Anticoagulant AND Antiplatelet Medications (From admission, onward) Start Dose Route Frequency Ordered Stop 01/22/192229 heparin 5,000 Units injection (Medical Risk Categories) 5,000 Units SUBCUTANEOUS EVERY 12 HOURS 01/22/192228 -- 01/22/192229 pneumatic compression stockings (de,oh) 01/22/191814 vte non-pharmacologic prophylaxis - none indicated (de,vt) 01/22/191814 activity - mobilize patient (de,vt) VTE Prophylaxis: VTE prophylaxis appropriate Plan of care discussed with: Provider, RN, Patient SIGNATURE: Camila Rizvi MD PATIENT NAME: Jorge Covington DATE: January 26, 2019 TIME: 11:16 AM PAGER/CONTACT #: [phone] ICU STAFF PHYSICIAN NOTE OF PERSONAL INVOLVEMENT IN CARE ? Seriously?ill 63?year old male admitted to ICU?with acute on chronic respiratory failure and myxedema coma. Extubated on 01/25/19. ? Continue Noninvasive ventilation qhs Continue BPH/IS/OOB/broncohodi lator-anticholinergic therapy Supplemental oxygen be titrated to a target of 88 to 92 percent pulse oxygen saturation Continue steroids x 5 days Continue abx x 7 days per c/s results Continue IV levothyroxine per Physical therapy Electrolyte replacement to keep K>4 and Mg>2 to decrease risk of a Fib Maintain day/night cycle, avoid BDZ, anticholinergics, anti-histamines SSI SCDs, sc heparin Continue respiratory/hemodynam ic monitoring D/w Dr.Esterle Desai for transfer to [facility] I have reviewed and verified the recent history and physical examination obtained and documented by fellow and I personally participated in the hodges components. I have discussed the case and management of the patient's care, exclusive of separately billed procedures which fulfilled the standards for LEVEL 3. SIGNATURE: Merrick Kuhn MD DATE: 01/26/2019 TIME: 2:14 PM [facility] PROGRESS HNO ID: [id number] Author: Shirley Romo Service: ? Author Type: [...] ?C (97.4 ?F) Temporal ? ? ? 01/25/192308 ? ? ? 62 13 97 % 01/25/19 2300 ? ? ? 63 13 98 % 01/25/19 2200 112/64 ? ? 62 16 97 % 01/25/19 2100 112/69 ? ? 67 14 96 % 01/25/192040 ? ? ? 62 20 ? 01/25/192028 [...] ? Plan Cont current poc Transfer to tele Medication and Non-Pharmacologic VTE Prophylaxis/Anticoagu lants Anticoagulant AND Antiplatelet Medications (From admission, onward) Start Dose Route Frequency Ordered Stop 01/22/192229 heparin 5,000 Units injection (Medical Risk Categories) 5,000 Units SUBCUTANEOUS EVERY 12 HOURS 01/22/192228 -- 01/22/192229 pneumatic compression stockings (de,oh) 01/22/191814 vte non-pharmacologic prophylaxis - none indicated (fl,oh) 01/22/191814 activity - mobilize patient (de,oh) VTE Prophylaxis: VTE prophylaxis appropriate SIGNATURE: Shirley Romo DO PATIENT NAME: Jorge Covington DATE: January 26, 2019 TIME: 10:09 AM PAGER/CONTACT #: [phone] [facility] Phosphoruson 01-26-2019 Phosphate [Mass/Vol] 2.9 mg/dL Normal 2.7-4.8 [facility] Comment on above: Performed By: #### T SH #### [facility] 1000 [facility] [phone] THERAPY NTon 01-26-2019 THERAPY NT HNO ID: [id number] Author: Drea (Ot/L) Patrica Service: Occupational Therapy Author Type: Occupational Therapist Type: Therapy (PT/OT/Speech/Resp) Filed: 01/28/2019 1:50 PM Note Text: Occupational Therapy Evaluation SERVICE DATE: 01/26/2019 SERVICE TIME: 1350 to 1425 ROOM: [place] [address] Recommended Discharge Disposition: Subacute/SNF Recommended Discharge Disposition [...] 6 Clicks Score: 14 Precautions/Activity Restrictions: Fall Risk;Lines/Tubes/Drai ns;Other: See Comments Precaution/Activity Restriction Comments: standard, mobilize [...] with: Patient TREATMENT INTERVENTIONS: Therapy Diagnosis: Reduced mobility-other;Decrea sed activities of daily living (ADL);Muscle Weakness (generalized);General symptoms and signs-other;Signs and Symptoms Involving Cognitive Functions and Awareness Interventions Provided: Evaluation;Therapeuti c Activity (18278);Self Chcf Management (68060) $ Evaluation-Moderate (40365) Billed Units: 1 unit Therapeutic Activity (27590) Treatment Minutes: 15 1 unit Skilled Intervention(s): [...] self care activities while EOB sitting Self Chcf Management (50730) Treatment Minutes: 10 1 unit Skilled Intervention(s): [...] spouse completes Equipment Owned: Hospital Bed;Wheeled Walker;Shower Chair;Wheelchair;Othe r: See Comment(slide board, brace/AFO R LE) Prior Functional Level: Required Assistance;History of Falls Assistance Required With: Cleaning;Laundry;Meal s;Medication Management;Safety;Em f Care;Shopping;Transpo rtation;Wheelchair Mobility Prior Functional Level Comments: [employer] patient reports primarily w/c/bed bound, pt is supervision for slideboard transfers to/from w/c/commode/shower chair/hospital bed/car, spouse assists with all ADLs, spouse fully completes all IADLs and driving, reports x 2 falls out of w/c in the past 6 months, mod I for w/c management around home and up ramp into home(active with home PT services, + wears brace/AFO R LE) OBJECTIVE: Cognition/Communicati on Deficits Orientation Deficits: Not oriented to Time [...] for this therapy evaluation/treatment. SIGNATURE: Drea Burciaga OT/Eliseo PATIENT NAME: Jorge Covington DATE: January 26, 2019 TIME: 2:53 PM [facility] THERAPY NT HNO ID: [id number] Author: Faith Carrillo Service: Physical Therapy Author Type: Physical Therapist Type: Therapy (PT/OT/Speech/Resp) Filed: 01/26/2019 10:41 AM Note Text: Physical Therapy Evaluation SERVICE DATE: 01/26/2019 SERVICE TIME: 0857 to 0946 ROOM: [id number] Recommended Discharge Disposition: Subacute/SNF Recommended Discharge Disposition [...] 6 Clicks Score: 8 Precautions/Activity Restrictions: Fall Risk;Lines/Tubes/Drai ns;Other: See Comments Precaution/Activity Restriction Comments: standard, mobilize [...] at approach (recently weaned from 2LO2 per DESK REPORTER), requires reapplication of 2LO2 during session to [...] Current admission Treatment Interventions: Education;Energy Conservation Training;Joint Mobility;Strengthenin g;Functional Mobility Training;Balance Training;Neuromuscula r Re-education Plan of Care developed with: Patient TREATMENT INTERVENTIONS: Therapy Diagnosis: Reduced mobility-other Interventions Provided: Evaluation;Therapeuti c Exercise (37287);Therapeutic Activity (55274);Neuromuscular Reeducation (28383) $ Evaluation-Moderate (99374) Billed Units: 1 unit Therapeutic Exercise (16129) Treatment Minutes: 6 Skilled Intervention(s): Instruction in [...] >90% and up to 92% Therapeutic Activity (34459) Treatment Minutes: 8 1 unit Skilled Intervention(s): [...] home PT (pt active with home PT [employer] and requesting preference for return to home [...] for proper deep breathing techniques Neuromuscular Re-Education (13533) Treatment Minutes: 10 1 unit Skilled Intervention(s): [...] I feel like I could transfer right now, agreeable to PT evaluation/treatment, ok per RN [...] spouse completes Equipment Owned: Hospital Bed;Wheeled Walker;Shower Chair;Wheelchair;Othe r: See Comment(slide board, brace/AFO R LE) Prior Functional Level: Required Assistance;History of Falls Assistance Required With: Cleaning;Laundry;Meal s;Medication Management;Safety;Em f Care;Shopping;Transpo rtation;Wheelchair Mobility Prior Functional Level Comments: [employer] patient reports primarily w/c/bed bound, pt is [...] DATE: January 26, 2019 TIME: 10:28 AM [facility] XR CHEST 1V FRONTALon 2018 XR CHEST [...] cervical spine fusion. IMPRESSION: Mild bibasilar atelectasis. Project Manager/Design Manager: PSCB Transcribe Date/Time: Jan 26 2019 6:34A Dictated by : RELL SIERRA MD This examination was interpreted and the report reviewed and electronically signed by: RELL SIERRA MD on Jan 26 2019 6:58AM EST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 Present Current Assessment AND Plan Assessment: H/O Hypothyroidism On Po Levothyroxine stopped taking as ran out of prescriptons PLAN: Endocrinology on board IV Levothyroxine Daily thyroid studies Pulmonary COPD (chronic obstructive pulmonary disease) ([facility]) 06/08/2018 - Present Acute respiratory failure ([facility]) 01/22/2019 - Present Current Assessment AND Plan Assessment: Intubated 01/22 overnight PLAN: Lung protective ventilation Wean as tolerated Infectious Disease Septicemia ([facility]) 01/23/2019 - Present Current Assessment AND Plan Assessment: Growing klebsiella in blood on Ceftriaxone, UA dirty, Urine Culture negative, past h/o UTI with Proteus which was sensitive to Ceftriaxone PLAN: Continue Ceftriaxone Medication and Non-Pharmacologic VTE Prophylaxis/Anticoagu lants Anticoagulant AND Antiplatelet Medications (From admission, onward) Start Dose Route Frequency Ordered Stop 01/22/19 2230 heparin 5,000 Units injection (Medical Risk Categories) 5,000 Units SUBCUTANEOUS EVERY 12 HOURS 01/22/19 2229 -- 01/22/19 2230 pneumatic compression stockings ([place]) 01/22/19 181 vte non-pharmacologic prophylaxis - none indicated ([place]) 01/22/19 181 activity - mobilize patient (de,vt) VTE Prophylaxis: VTE prophylaxis appropriate Plan of care discussed with: Provider, RN, Patient SIGNATURE: Camila Rizvi MD PATIENT NAME: Jorge Covington DATE: January 24, 2019 TIME: 11:40 AM PAGER/CONTACT #: [phone] ICU STAFF PHYSICIAN NOTE OF PERSONAL INVOLVEMENT IN CARE Critically ill 63 year old male admitted to ICU with acute on chronic respiratory failure and myxedema coma. Continue lung protective mechanical ventilation Continue empiric antibiotics Continue levothyroxine and steroids per endocrinology recs Will wean ventilatory support as tolerated and extubate when ready. Continue fluid support and respiratory/hemodynam ic monitoring Continue ICU care This patient has [...] has the following organ/system impairment(s): acute respiratory failure,encephalopath y, severe metabolic disorder and complex life-threatening medical problem(s). Time spent providing critical care services: 50 minutes. The time excludes any associated procedures which will be documented and billed separately. SIGNATURE: Merrick Kuhn MD DATE: 01/24/2019 TIME: 3:41 PM [facility] PROGRESS HNO ID: [id number] Author: Shirley Romo Service: ? Author Type: [...] 18 ? 01/23/19 1940 ? 95 % 01/23/195 ? ? ? (!) 47 19 97 [...] and urine cultures Medication and Non-Pharmacologic VTE Prophylaxis/Anticoagu lants Anticoagulant AND Antiplatelet Medications (From admission, onward) Start Dose Route Frequency Ordered Stop 01/22/192229 heparin 5,000 Units injection (Medical Risk Categories) 5,000 Units SUBCUTANEOUS EVERY 12 HOURS 01/22/192228 -- 01/22/192229 pneumatic compression stockings (de,vt) 01/22/191814 vte non-pharmacologic prophylaxis - none indicated (de,oh) 01/22/191814 activity - mobilize patient (de,vt) VTE Prophylaxis: VTE prophylaxis appropriate SIGNATURE: Shirley Romo DO PATIENT NAME: Jorge Covington DATE: January 24, 2019 TIME: 9:38 AM PAGER/CONTACT #: [phone] [facility] Phosphoruson 01-24-2019 Phosphate [Mass/Vol] 1.6 mg/dL Low 2.7-4.8 [facility] Comment on above: Performed By: #### C BCDIF, CMP #### [facility] [address] [facility] [phone] T3on 01-24-2019 T3 26 ng/dL Low 79-165 [facility] Comment on above: Performed By: #### C BCDIF, CMP #### [facility] [address] [facility] [phone] THERAPY NTon 01-24-2019 THERAPY NT HNO ID: [id number] Author: Faith De La RosaOtDemi Chew Service: Occupational Therapy Author Type: Occupational Therapist Type: Therapy (PT/OT/Speech/Resp) Filed: 01/24/2019 1:33 PM Note Text: OCCUPATIONAL THERAPY MISSED VISIT SERVICE DATE: 01/24/2019 SERVICE TIME: 1323 to 1323 ROOM: [place] [address] Attempted Evaluation. Patient not seen due to Illness. Per conversation with RN she confirmed is Pt confused, intubated and sedated. Discontinued OT orders Please reconsult if/when appropriate. ? SIGNATURE: Faith Chew, OTR/L PATIENT NAME: Jorge Covington DATE: January 24, 2019 TIME: 1:26 PM [facility] THERAPY NT HNO ID: [id number] Author: Annie De La RosaPtDemi Hare Service: Physical Therapy Author Type: Physical Therapist Type: Therapy (PT/OT/Speech/Resp) Filed: 01/24/2019 11:48 AM Note Text: PHYSICAL THERAPY MISSED VISIT SERVICE DATE: 01/24/2019 SERVICE TIME: 1023 to 1023 ROOM: [place] [address] Attempted Evaluation. Patient not seen due to (per RN not appropriate, to DC PT orders). Pt confused, intubated and sedated. Discontinued PT orders (without evaluation) as per JAZZY Aparicio's suggestions. Please reconsult if/when appropriate. SIGNATURE: Annie Hare PT PATIENT NAME: Joreg Covington DATE: January 24, 2019 TIME: 10:25 AM [facility] XR CHEST 1V FRONTALon 2018 XR CHEST [...] and/or infectious infiltrate. No significant pleural effusion. Project Manager/Design Manager: PSCB Transcribe Date/Time: Jan 24 2019 11:32A Dictated by : CRISTEL MACKENZIE MD This examination was interpreted and the report reviewed and electronically signed by: CRISTEL MACKENZIE MD on Jan 24 2019 11:34AM EST [id number] N [facility] HNO ID: [id number] Author: DAVID Webb (Ct) Service: ? Author Type: Clinical Retail Marketing Manager Type: Allied Health Filed: 01/23/2019 12:32 PM [...] DAVID Webb January 23, 2019 12:32 PM [facility] HNO ID: [id number] Author: DAVID Sykes (Ct) Service: ? Author Type: Clinical Retail Marketing Manager Type: Allied Health Filed: 01/22/2019 11:53 PM [...] DAVID Sykes January 22, 2019 11:52 PM [facility] Basic Metabolic Panlon 01-23 Anion gap [Moles/Vol] 12 mmol/L Normal 9-18 [facility] Comment on above: Performed By: #### B MP ####[facility] [address] [place] [address] Calcium [Mass/Vol] 8.7 mg/dL Normal 8.5-10.2 [facility] Comment on above: Performed By: #### B MP ####[facility] [id number] [place] [address] Chloride [Moles/Vol] 105 mmol/L Normal 97-105 [facility] Comment on above: Performed By: #### B MP ####[facility] [address]uyv[address] [place] [address] CO2 [Moles/Vol] 23 mmol/L Normal 22-30 [facility] Comment on above: Performed By: #### B MP ####[facility] Jetlywrzss8[address] [place] [address] Creatinine [Mass/Vol] 0.71 mg/dL Low 0.73-1.22 [facility] Comment on above: Performed By: #### B MP ####[facility] [address] [place] [address] eGFR- Amer. >60 Normal [facility] Comment on above: Performed By: #### B MP ####[facility] [address]fwrxrhgv69[address] [place] [phone] GFR/1.73 sq M predicted among non-blacks MDRD (S/P/Bld) [Vol rate/Area] mL/min/{1.73_m2} Normal [facility] Comment on above: Result Comment: eGFR (Estimated [...] actual GFR. Performed By: #### B MP ####[facility] [address]fn75[address] [place] [address] Glucose [Mass/Vol] 188 mg/dL High 74-99 [facility] Comment on above: Result Comment: The [place] Diabetes Association (ADA) provides guidance for cutoff [...] Standards of Medical Care in Diabetes 2016, [place] Diabetes Association. Diabetes Care. 2016.39(Suppl 1). Performed By: #### B MP ####[facility] Imjtoxbona039[address] [place] [phone] Potassium [Moles/Vol] 4.3 mmol/L Normal 3.7-5.1 [facility] Comment on above: Performed By: #### B MP ####[facility] [address] [place] [phone] Sodium [Moles/Vol] 140 mmol/L Normal 136-144 [facility] Comment on above: Performed By: #### B MP ####[facility] Tdajnnpbxe7287 [address] Urea nitrogen [Mass/Vol] 8 mg/dL Low 9-24 [facility] Comment on above: Performed By: #### B MP ####[facility] Dbgqxtkynj8[address] [place] [address] Anion gap [Moles/Vol] 9 mmol/L Normal 9-18 [facility] Comment on above: Performed By: #### Beatriz BC BMP, MG1, PHOS ####[facility] Ejsevtnxxg[address] [place] [address] Calcium [Mass/Vol] 8.8 mg/dL Normal 8.5-10.2 [facility] Comment on above: Performed By: #### Beatriz BC BMP, MG1, PHOS ####[facility] Vcdmuttcnr6214 [place] [address] Chloride [Moles/Vol] 102 mmol/L Normal 97-105 [facility] Comment on above: Performed By: #### Beatriz BC BMP, MG1, PHOS ####[facility] Iqqiwlhipb4877 [place] [address] CO2 [Moles/Vol] 22 mmol/L Normal 22-30 [facility] Comment on above: Performed By: #### Beatriz BC BMP, MG1, PHOS ####[facility] [address]zvarz88[address] [place] [address] Creatinine [Mass/Vol] 0.39 mg/dL Low 0.73-1.22 [facility] Comment on above: Performed By: #### Beatriz BC BMP, MG1, PHOS ####[facility] Qbm[address]uulu60[address] [place] [address] eGFR- Amer. >60 Normal [facility] Comment on above: Performed By: #### Beatriz BC BMP, MG1, PHOS ####[facility] Fnwxmzshfw6[address] [place] [address] GFR/1.73 sq M predicted among non-blacks MDRD (S/P/Bld) [Vol rate/Area] mL/min/{1.73_m2} Normal [facility] Comment on above: Result Comment: eGFR (Estimated [...] By: #### C BC, BMP, MG1, PHOS ####[facility] Zutbizoedm0155 [address] Glucose [Mass/Vol] 165 mg/dL High 74-99 [facility] Comment on above: Result Comment: The [place] Diabetes Association (ADA) provides guidance for cutoff [...] Standards of Medical Care in Diabetes 2016, [place] Diabetes Association. Diabetes Care. 2016.39(Suppl 1). Performed By: #### C BC, BMP, MG1, PHOS ####[facility] Jckginvnyf9494 [address] Potassium [Moles/Vol] Unable to assay. Specimen hemolyzed. Normal 3.7-5.1 [facility] Comment on above: Result Comment: CALL ED TO ICU JUAN F CUADRA Performed By: #### C BC, BMP, MG1, PHOS ####[facility] Agrgvpzmmk2787 [address] Sodium [Moles/Vol] 133 mmol/L Low 136-144 [facility] Comment on above: Performed By: #### C BC, BMP, MG1, PHOS ####[facility] Tldfqoicsh9564 [address] Urea nitrogen [Mass/Vol] 9 mg/dL Normal 9-24 [facility] Comment on above: Performed By: #### C BC, BMP, MG1, PHOS ####[facility] Avfxfujbyc7930 [address] CBCon 01-23-2019 Erythrocyte distribution width (RBC) [Ratio] 19.0 % High 11.5-15.0 [facility] Comment on above: Performed By: #### C MILES HALL MG1, PHOS ####[facility] [address] [place] [address] Hematocrit (Bld) [Volume fraction] 41.0 % Normal 39.0-51.0 [facility] Comment on above: Performed By: #### C MILES HALL MG1, PHOS ####[facility] [address] [place] [address] Hemoglobin (Bld) [Mass/Vol] 12.9 g/dL Low 13.0-17.0 [facility] Comment on above: Performed By: #### C MILES HALL MG1, PHOS ####[place] [address] MCH (RBC) [Entitic mass] 29.8 pG Normal 26.0-34.0 [facility] Comment on above: Performed By: #### C MILES HALL MG1, PHOS ####[facility] [address] [place] [address] MCHC (RBC) [Mass/Vol] 31.5 g/dL Normal 30.5-36.0 [facility] Comment on above: Performed By: #### C MILES HALL MG1, PHOS ####[place] [address] MCV (RBC) [Entitic vol] 94.7 fL Normal 80.0-100.0 [facility] Comment on above: Performed By: #### C MILES HALL, MG1, PHOS ####[facility] [address] [place] [address] Platelet mean volume (Bld) [Entitic vol] 10.1 fL Normal 9.0-12.7 [facility] Comment on above: Performed By: #### C MILES HALL MG1, PHOS ####[facility] [address] [place] [address] Platelets (Bld) [#/Vol] 388 10*3/uL Normal 150-400 [facility] Comment on above: Performed By: #### C BC, BMP, MG1, PHOS ####[facility] [address]obf37[address] [place] [phone] RBC (Bld) [#/Vol] 4.33 10*6/uL Normal 4.20-6.00 [facility] Comment on above: Performed By: #### C BC, BMP, MG1, PHOS ####[facility] [address]xokhqwukg4526 [phone] WBC (Bld) [#/Vol] 6.32 10*3/uL Normal 3.70-11.00 [facility] Comment on above: Performed By: #### C BC, BMP, MG1, PHOS ####[facility] Piwhfyvonp7083 [phone] CONSULTon 01-23-2019 CONSULT HNO ID: [id number] Author: Rossi Vásquez) Marleny Service: Endocrinology Author [...] -- IV lt4 is being ordered from [facility] Main and should arrive by 1 pm [...] assisted care facility after his discharge from [facility] for admission of intradural cyst vs [...] (LEVOPHED) 0.5-50 mcg/min INTRAVENOUS CONTINUOUS Gayatri E (Lacquer Dipping Machine Operator) Sly - DOPamine iv infusion 800 mg/250 mL D5W 2.5-20 mcg/kg/min INTRAVENOUS CONTINUOUS Gayatri E (Lacquer Dipping Machine Operator) Sly Stopped at 01/23/19323 - levothyroxine 150 mcg in NaCl (PF) 0.9% 3 mL iv syringe 150 mcg INTRAVENOUS DAILY (6 AM) Horace Jose Rai 150 mcg at 01/23/19 0307 - levothyroxine 150 mcg in NaCl (PF) 0.9% 3 mL iv syringe 150 mcg INTRAVENOUS ONE TIME Shirisha (Md) Avadhanula - perflutren lipid microspheres 1.1 mg/mL [...] 4 mg INTRAVENOUS q 6 H PRN Sihrley M Esterle - methylPREDNISolone sod succinate(PF) 60 [...] Units SUBCUTANEOUS q 12 H Gayatri E (Lacquer Dipping Machine Operator) Sly 5,000 Units at 01/23/19 0850 - cefTRIAXone 1 g in D5W 100 mL MB+ (ROCEPHIN) 1 g INTRAVENOUS q 24 H Gayatri E (Lacquer Dipping Machine Operator) Sly 200 mL/hr at 01/23/19 0848 1 g at 01/23/19 0848 - propofol infusion (DIPRIVAN) 5-60 mcg/kg/min INTRAVENOUS CONTINUOUS Gayatri E (Lacquer Dipping Machine Operator) Sly - fentaNYL 20 mcg/mL iv infusion in NaCl 0.9% 100 mL 25-250 mcg/hr INTRAVENOUS CONTINUOUS Gayatri E ([employer] Dipping Machine Operator) Sly 10 mL/hr at 01/23/19 0947 200 [...] file Gets together: Not on file Attends synagogue service: Not on file Active member of [...] (Axillary) Resp 15 Ht 167.6 cm (5' 6) Wt 106.3 kg (234 lb 5.6 oz) [...] Fingerstick glucose readings reviewed. Rossi Farmer MD [facility] Endocrinology and Metabolism [facility] January 23, 2019 11:20 AM Normal [facility] CONSULT HNO ID: [id number] Author: Christina Vásquez) Kori Service: Pulmonary Disease [...] ideally T4 and T3 replacement - c/w ceftriaxone/azithromy jennifer (01/22- ) - follow up blood cultures [...] is in agreement with current management plan. [facility] STAFF PHYSICIAN NOTE OF PERSONAL INVOLVEMENT [...] year old male, Ht 167.6 cm (5' 6) BMI 37.82 kg/m2, with a PMH significant for hypothyroidism and heavy smoking. Mr. Covington presented to the ED on the evening of 01/22 with confusions, slurred speech and weakness. His weakness has been progressing over the past week per chart review. On arrival to the [place] ED, his O2 saturation on room air [...] 60 20 92 % ? ? 01/22/19 233 (!) 74/43 ? 01/22/19 2330 ? ? ? (!) 53 7 99 % ? ? 01/22/19 2325 (!) 79/50 ? ? (!) 52 19 95 % ? ? 01/22/19 2315 ? ? ? (!) 51 17 97 % ? ? 01/22/19 2304 ? 36.5 ?C (97.7 ?F) Temporal ? 01/22/19 2300 91/56 ? ? (!) 59 26 98 % ? ? 01/22/192229 100/59 ? ? (!) 53 14 94 [...] (!) 47 14 97 % ? ? 01/22/19 2015 101/63 ? ? (!) 50 16 98 % ? ? 01/22/191999 107/73 ? ? (!) 51 17 97 % ? ? 01/22/191944 (!) 75/55 ? ? (!) 43 13 95 % ? ? 01/22/191930 ? 36.8 ?C (98.2 ?F) Temporal ? 01/22/191929 102/62 ? ? (!) 50 17 97 % ? ? 10/26/19 1925 98/55 ? ? (!) 51 16 95 % ? ? 01/22/19 1900 86/50 ? ? (!) 55 20 95 % ? ? 01/22/197 ? ? ? (!) 53 17 95 % ? ? 01/22/19 185 ? ? ? (!) 54 18 94 [...] 23 (!) 87 % 167.6 cm (5' 6) 106.3 kg (234 lb 5.6 oz) 01/22/19 [...] Lipase Recent Labs 01/23/19 0535 01/23/19 0110 01/22/19 2250 01/22/19 1227 TPROT -- -- -- -- 7.8 ALB -- -- -- -- 4.1 ALT -- -- -- -- 23 AST -- -- -- -- 53* ALKPHOS -- -- -- -- 80 TBILI -- -- -- -- 0.2 LACT 1.1 0.9 0.4* < > -- < > = values in this interval not displayed. Cardiac Enzymes ABGs Recent Labs 01/23/19 0535 01/23/19 0110 01/22/19 2250 PH 7.374 7.294* 7.226* PCO2 43.0 51.8* 67.5* PO2 98.8* 81.7* 115* BE -0.3 -2.2 -1.7 HCO3 24.5 24.3 27.0* O2HB 95.1 92.6* 94.5* COHB 1.3 1.6 1.7 MHGB 1.2 1.2 1.2 Christina Sheikh MD Staff, Respiratory [facility] Pager #[phone] Normal [facility] Cortisolon 01-23-2019 Cortisol 26.3 ug/dL Normal [facility] Comment on above: Result Comment: Carlo isol Reference Range: AM = 5.3-22.5, PM = 3.4-16.8 Performed By: #### N TBNP #### [facility] [address] [place] [address] Free T3on 01-23-2019 Free T3 [Mass/Vol] pg/mL Low 2.3-4.1 [facility] Comment on above: Performed By: #### F REET3 ####[facility] [place], [place] [phone] Free T4on 01-23-2019 Free T4 [Mass/Vol] ng/dL Low 0.9-1.7 [facility] Comment on above: Performed By: #### F T4 ####[facility] [place], [place] [phone] HISTORY PHYSICALon 9 HISTORY PHYSICAL HNO ID: [id number] Author: Shirley Romo Service: ? Author Type: [...] Temp src Pulse Resp SpO2 Height Weight 01/23/1915 119/73 ? ? (!) 45 18 97 [...] (!) 53 14 94 % ? ? 01/22/19 2215 ? ? ? (!) 43 16 96 [...] (!) 50 17 97 % ? ? 01/22/195 98/55 ? ? (!) 51 16 95 % ? ? 01/22/19 1900 86/50 ? ? (!) 55 20 95 % ? ? 01/22/191856 ? ? ? (!) 53 17 95 % ? ? 01/22/191854 ? ? ? (!) 54 18 94 % ? ? 01/22/19 1850 ? ? ? (!) 53 17 93 % ? ? 01/22/19 1845 92/58 ? ? 60 18 92 % ? ? 01/22/19 1840 ? ? ? (!) 46 15 93 % ? ? 01/22/19 1835 ? ? ? (!) 48 16 95 [...] 23 (!) 87 % 167.6 cm (5' 6) 106.3 kg (234 lb 5.6 oz) 01/22/19 [...] with current poc Medication and Non-Pharmacologic VTE Prophylaxis/Anticoagu lants Anticoagulant AND Antiplatelet Medications (From admission, onward) Start Dose Route Frequency Ordered Stop 01/22/190 heparin 5,000 Units injection (Medical Risk Categories) 5,000 Units SUBCUTANEOUS EVERY 12 HOURS 01/22/192228 -- 01/22/192229 pneumatic compression stockings (de,vt) 01/22/191814 vte non-pharmacologic prophylaxis - none indicated (de,oh) 01/22/191814 activity - mobilize patient (de,vt) VTE Prophylaxis: VTE prophylaxis appropriate SIGNATURE: Shirley Romo DO PATIENT NAME: Jorge Covington DATE: January 23, 2019 TIME: 8:20 AM PAGER/CONTACT #: [phone] Normal [facility] Legionella Urine Agon 2018 Legionella Urine Ag Negative Normal Negative [facility] Comment on above: Performed By: #### L EGUAG ####[facility] [address] [place] [address] Magnesiumon 01-23-2019 Magnesium [Mass/Vol] 1.8 mg/dL Normal 1.7-2.3 [facility] Comment on above: Performed By: #### C BC, BMP, MG1, PHOS ####[facility] [address] [place] [phone] NURSING PROGon 01-23-2019 NURSING PROG HNO ID: [id number] Author: Alessandra (Rn) JAZZY Norton Service: Nursing Author Type: Registered Nurse Type: Nursing Progress Note Filed: 01/23/2019 12:56 PM Note Text: Nursing Progress: Topic: RESTRAINT NON-VIOLENT PATIENT NAME: Jorge Covington PATIENT LOCATION: [place] [address] [address] The patient demonstrates Attempting to Remove Medical [...] 2019 TIME: 12:55 PM Alessandra Norton RN [facility] [id number] Author: Britta De La RosaRn) JAZZY Dorado Service: Nursing Author Type: Registered Nurse Type: Nursing Progress Note Filed: 01/23/2019 12:27 AM Note Text: Nursing Progress: Topic: RESTRAINT NON-VIOLENT PATIENT NAME: Jorge Covington PATIENT LOCATION: [place] [address] 1 The patient demonstrates as evidenced by the [...] NON-VIOLENT PATIENT NAME: Jorge Covington PATIENT LOCATION: [place] [address]/[facility]0001 -1 The patient demonstrates as evidenced by the [...] 2019 TIME: 12:27 AM Britta Dorado RN [facility] [id number] Author: Rosalinda (Rn) JAZZY Narayan Service: ? Author Type: Registered Nurse Type: Nursing Progress Note Filed: 01/22/2019 11:44 PM Note Text: Pt being prepared for intubation. RT, RNs, KAE Armas at bedside. Time out performed. PT assessed. 100% fio2 administered via bag valve mask [id number] assisting via remote access camera and verifying that consent obtained. Consent confirmed as obtained by patient 2327-2 versed IV given, 50mg Rocuronium IV given 2328-200mg Propofol given 2329-pt becoming hypotensive 70's/50's 2321-neosynephrine 100mcg IV given 2332-neosynephrine 100mcg IV given 2333 #8 ETT placed 21 lip via glidescope. tueb secured. Positive co2 color change. bilat breath sounds auscultated. Pt placed on AC 18 TV500 fio2 60% peep 10 while awaiting vent setting orders. E-hospital notified for needed orders OGT place 2336-pt remains hypotensive neosynephrine 200mcg IV given 3449-d-uosgcyjr contacted again for orders 234-CXR done. BP improving 90's/50's Normal [facility] PROGRESSon 01-23-2019 PROGRESS HNO ID: [id number] Author: Dalton Chambers Service: Critical Care Author [...] infusion fentaNYL Last Rate: 200 mcg/hr (01/23/19 0988) RESPIRATORY Mechanical Ventilation: Yes, on mechanical ventilation [...] Checklist Last Documented/Reviewed time: 01/23/2019 10:57 AM ----- ICU Delirium Status: CAM Negative - no [...] Is Patient Clinically Ready to Transfer to [facility] or SDU?: No Discharge Planning: To be determined ASSESSMENT AND PLAN Neurology Myxedema coma (HCC) Assessment: H/O Hypothyroidism On Po Levothyroxine stopped taking as ran out of prescriptons PLAN: Endocrinology on board IV Levothyroxine Pulmonary Acute respiratory failure (HCC) Assessment: Intubated overnight PLAN: Lung protective ventilation, Wean as tolerated Infectious Disease Septicemia ([facility]) Assessment: Growing GNB in blood on Ceftriaxone, UA dirty, Urine Culture in progress, past h/o UTI with Proteus which was sensitive to Ceftriaxone PLAN: Continue Ceftriaxone DC Azithromycin Medication and Non-Pharmacologic VTE Prophylaxis/Anticoagu lants Anticoagulant AND Antiplatelet Medications (From admission, onward) Start Dose Route Frequency Ordered Stop 01/22/192229 heparin 5,000 Units injection (Medical Risk Categories) 5,000 Units SUBCUTANEOUS EVERY 12 HOURS 01/22/192228 -- 01/22/192229 pneumatic compression stockings (de,vt) 01/22/191814 vte non-pharmacologic prophylaxis - none indicated (de,vt) 01/22/191814 activity - mobilize patient ([place]) VTE Prophylaxis: VTE prophylaxis appropriate Plan of care discussed with: Family/Significant Other: and RN SIGNATURE: Dalton Chambers MD PATIENT NAME: Jorge Covington DATE: January 23, 2019 TIME: 12:02 PM PAGER/CONTACT #: [phone] ICU STAFF Note of Personal Involvement in [...] which will be documented and billed separately. [facility] PROGRESS HNO ID: [id number] Author: Horace Jose Rai Service: Critical Care [...] Levothyroxine and follow. Horace Jose Rai, MD, [facility] E-ICU Staff, Pulmonary and Critical Care Medicine [facility] Respiratory [facility] Pager #[phone] [facility] PROGRESS HNO ID: [id number] Author: Gayatri Heart Service: eHospital Author Type: [...] DATE: January 23 2019 TIME: 12:50 AM [facility] PROGRESS HNO ID: [id number] Author: Gayatri Heart Service: eHospital Author Type: [...] Collaboration: Plan of care discussed with eHospital Brim Setter SIGNATURE: Gayatri Heart APRN.CNP PATIENT NAME: Jorge Covington DATE: January 23 2019 TIME: 12:50 AM [facility] PROGRESS HNO ID: [id number] Author: Gayatri Heart Service: eHospital Author Type: [...] or alteration of vasopressors;Airway management;Laboratory tests;Radiology / Imaging;Sedation;Diur etic therapy;ABG;Chest x-ray Plan/Intervention (other): Intubation. Endocrine consult /DOUG Collaboration: Plan of care discussed with ospital Brim Setter SIGNATURE: Gayatri Heart APRN.CNP PATIENT NAME: Jorge Covington DATE: January 22 2019 TIME: 11:26 PM [facility] Phosphoruson 01-23-2019 Phosphate [Mass/Vol] 3.1 mg/dL Normal 2.7-4.8 [facility] Comment on above: Performed By: #### C BC, BMP, MG1, PHOS ####[facility] [address] [place] [address] Staph aureus PCRon 9 MRSA PCR Negative [facility] Comment on above: Performed By: #### C BCDIF, CMP #### [facility] [address] [place] [address] S aureus Spec Source Nasal Normal [facility] Comment on above: Performed By: #### C BCDIF, CMP #### [facility] [address] [place] [address] Staph aureus PCR Negative [facility] Comment on above: Performed By: #### C BCDIF, CMP #### [facility] [address] [place] [address] MRSA PCR Negative [facility] Comment on above: Performed By: #### S APCR ####[facility] F[address]oc[address]khp[address] [place], [place] [phone] S aureus Spec Source Nasal Normal [facility] Comment on above: Performed By: #### S APCR ####[facility] Zvhgknmcfp8889 [address] [phone] Staph aureus PCR Negative [facility] Comment on above: Performed By: #### S APCR ####[facility] Nehmppakfs6342 [address] [phone] THERAPY NTon 01-23-2019 THERAPY NT HNO ID: [id number] Author: Shyanne De La RosaPt) Jerrod Service: Physical Therapy Author Type: Physical Therapist Type: Therapy (PT/OT/Speech/Resp) Filed: 01/23/2019 10:06 AM Note Text: PHYSICAL THERAPY MISSED VISIT SERVICE DATE: 01/23/2019 SERVICE TIME: 1003 to 1004 ROOM: [place] [address] Attempted Evaluation. Patient not seen due to Illness(Per nsg pt not appropriate for PT Eval at this time. Sedated. Intubated). SIGNATURE: Shyanne Elder PT PATIENT NAME: Jorge Covington DATE: January 23, 2019 TIME: 10:05 AM [facility] THERAPY NT HNO ID: [id number] Author: Drea Vasquez/Krysten Burciaga Service: Occupational Therapy Author Type: Occupational Therapist Type: Therapy (PT/OT/Speech/Resp) Filed: 01/23/2019 10:05 AM Note Text: OCCUPATIONAL THERAPY MISSED VISIT SERVICE DATE: 01/23/2019 SERVICE TIME: 1004 to 1004 ROOM: [place] [address] Attempted Evaluation. Patient not seen due to Illness. RNAlessandra, reported that pt is not appropriate for therapy at this time. Per pt chart, pt is sedated and intubated. Will re-attempt as schedule allows with pt appropriateness. SIGNATURE: Drea Burciaga OT/Eliseo PATIENT NAME: Jorge Covington DATE: January 23, 2019 TIME: 10:04 AM [facility] Urine Cultureon 01-23-2019 Bacteria identified Cx Nom (U) Culture Result - 50,000 - <100,000 CFU/ml Normal urogenital cristel Normal [facility] Comment on above: Performed By: #### C BCDIF, CMP #### [facility] [address] [facility] [phone] Urine Strep Pneumo FOR WEST USE ONLYon 01-23-2019 Urine Strep Pneumo FOR WEST USE ONLY Negative Normal Negative [facility] Comment on above: Result Comment: Stre p Pneumo vaccine may cause a false positive Strep Pneumo antigen result in the 48 hours following vaccine. Performed By: #### U STPW ####[facility] Rmotnelpjr4498 [phone] XR ABDOMEN 1V SUPINEon 01-23 XR ABDOMEN [...] mildly distended small bowel loops. Consider follow-up. Project Manager/Design Manager: ALDO Transcribe Date/Time: Jan 23 2019 12:38P Dictated by : KASI YA MD This examination was interpreted and the report reviewed and electronically signed by: KASI YA MD on Jan 23 2019 12:41PM EST [id number] N [facility] XR ABDOMEN 1V SUPINE * * *Final [...] Evaluate tube, line or lead position (accession [id number]), Evaluate tube, line or lead position (accession [id number]) MQ: XC2_5 Comparison: Same-day chest radiograph RESULT: [...] This could represent atelectasis, pneumonia, or aspiration. Project Manager/Design Manager: [facility] Transcribe Date/Time: Jan 22 2019 11:57P Dictated by : KARI VIVAS MD This examination was interpreted and the report reviewed and electronically signed by: KARI VIVAS MD on Jan 23 2019 12:03AM EST [id number] N [facility] XR CHEST 1V FRONTAL PORTon 1 XR [...] Evaluate tube, line or lead position (accession [id number]), Evaluate tube, line or lead position (accession [id number]) MQ: XC2_5 Comparison: Same-day chest radiograph RESULT: [...] This could represent atelectasis, pneumonia, or aspiration. Project Manager/Design Manager: [facility] Transcribe Date/Time: Jan 22 2019 11:57P Dictated by : KARI VIVAS MD This examination was interpreted and the report reviewed and electronically signed by: KARI VIVAS MD on Jan 23 2019 12:03AM EST [id number] N [facility] ALLIED HEALTHon 01-22-2019 ALLIED HEALTH HNO ID: [id number] Author: DAVID Webb (Ct) Service: ? Author Type: Clinical Retail Marketing Manager Type: Allied Health Filed: 01/22/2019 12:47 PM [...] DAVID Webb January 22, 2019 12:46 PM [facility] Blood Cultureon 01-22-2019 Bacteria identified Cx Nom [...] to and read back by:Criss [place]ANG [place] [phone] --> ABNORMAL ALERT Klebsiella oxytoca detected by microarray. Confirmation and --> ABNORMAL ALERT susceptibility testing to follow.(*), Negative for Acinetobacter spp. --> ABNORMAL ALERT and Pseudomonas aeruginosa by --> ABNORMAL ALERT microarray.. Called to and read back by: Corie Norton at [facility], on --> ABNORMAL ALERT 01.22.19 at 1215, [...] <=0.5 F Cefazolin SUSCEPTIBLE F Critically abnormal [facility] Comment on above: Performed By: #### T SH #### [facility] [address] [place] [address] Bacteria identified Cx Nom (Bld) Culture Result - No growth 5 days Normal [facility] Comment on above: Performed By: #### B LCUL ####[facility] [address] [place], [place] [phone] CBC and Differentialon 01-22 Abs Baso 0.06 k/uL Normal <0.11 [facility] [facility] Comment on above: Performed By: #### C BCDIF, CMP #### [facility] [address] [place] [address] Abs [place] 0.44 k/uL Normal <0.87 [facility] Comment on above: Performed By: #### C BCDIF, CMP #### [facility] [address] [place] [address] Abs Neut 2.49 k/uL Normal 1.45-7.50 [facility] Comment on above: Performed By: #### C BCDIF, CMP #### [facility] [address] [place] [address] Basophils/100 WBC (Bld) 1.1 % Normal [facility] Comment on above: Performed By: #### C BCDIF, CMP #### [facility] [address] [place] [address] Eosinophils (Bld) [#/Vol] 0.26 10*3/uL Normal <0.46 [facility] Comment on above: Performed By: #### C BCDIF, CMP #### [facility] [address] [place] [address] Eosinophils/100 WBC (Bld) 4.8 % Normal [facility] Comment on above: Performed By: #### C BCDIF, CMP #### [facility] [address] [place] [address] Erythrocyte distribution width (RBC) [Ratio] 18.9 % High 11.5-15.0 [facility] Comment on above: Performed By: #### C BCDIF, CMP #### [facility] [address] [facility] [phone] Hematocrit (Bld) [Volume fraction] 44.0 % Normal 39.0-51.0 [facility] Comment on above: Performed By: #### C BCDIF, CMP #### [facility] [address] [facility] [phone] Hemoglobin (Bld) [Mass/Vol] 13.8 g/dL Normal 13.0-17.0 [facility] Comment on above: Performed By: #### C BCDIF, CMP #### [facility] [address] [facility] [phone] Lymphocytes (Bld) [#/Vol] 2.17 10*3/uL Normal 1.00-4.00 [facility] Comment on above: Performed By: #### C BCDIF, CMP #### [facility] [address] Lymphocytes/100 WBC (Bld) 40.0 % Normal [facility] Comment on above: Performed By: #### C BCTERESITAF, CMP #### [facility] [address] [place] [phone] MCH (RBC) [Entitic mass] 29.6 pG Normal 26.0-34.0 [facility] Comment on above: Performed By: #### C BCDIF, CMP #### [facility] [address] [place] [phone] MCHC (RBC) [Mass/Vol] 31.4 g/dL Normal 30.5-36.0 [facility] Comment on above: Performed By: #### C BCDIF, CMP #### [facility] [address] [place] [phone] MCV (RBC) [Entitic vol] 94.4 fL Normal 80.0-100.0 [facility] Comment on above: Performed By: #### C BCDIF, CMP #### [facility] [address] Monocytes/100 WBC (Bld) 8.1 % Normal [facility] Comment on above: Performed By: #### C BCDIF, CMP #### [facility] [address] Neutrophils/100 WBC (Bld) 46.0 % Normal [facility] Comment on above: Performed By: #### C BCDIF, CMP #### [facility] [address] [place] [address] Platelet mean volume (Bld) [Entitic vol] 9.6 fL Normal 9.0-12.7 [facility] Comment on above: Performed By: #### C BCDIF, CMP #### [facility] [address] [place] [address] Platelets (Bld) [#/Vol] 389 10*3/uL Normal 150-400 [facility] Comment on above: Performed By: #### C BCDIF, CMP #### [facility] [address] [place] [address] RBC (Bld) [#/Vol] 4.66 10*6/uL Normal 4.20-6.00 [facility] Comment on above: Performed By: #### C BCDIF, CMP #### [facility] [address] [place] [address] WBC (Bld) [#/Vol] 5.42 10*3/uL Normal 3.70-11.00 [facility] Comment on above: Performed By: #### C BCDIF, CMP #### [facility] [address] [place] [address] Comp Metabolic Panelon 01-22 Albumin [Mass/Vol] 4.1 g/dL Normal 3.9-4.9 [facility] Comment on above: Performed By: #### C BCDIF, CMP #### [facility] [address] [place] [address] ALP [Catalytic activity/Vol] 80 U/L Normal 38-113 [facility] Comment on above: Performed By: #### C BCDIF, CMP #### [facility] [address] [place] [address] ALT [Catalytic activity/Vol] 23 U/L Normal 10-54 [facility] Comment on above: Performed By: #### C BCDIF, CMP #### [facility] [address] [place] [address] Anion gap [Moles/Vol] 8 mmol/L Low 9-18 [facility] Comment on above: Performed By: #### C BCTERESITAF, CMP #### [facility] [address] AST [Catalytic activity/Vol] 53 U/L High 14-40 [facility] Comment on above: Performed By: #### C BCDIF, CMP #### [facility] [address] [place] [address] Bilirubin [Mass/Vol] 0.2 mg/dL Normal 0.2-1.3 [facility] Comment on above: Performed By: #### C BCDIF, CMP #### [facility] [address] [place] [address] Calcium [Mass/Vol] 9.9 mg/dL Normal 8.5-10.2 [facility] Comment on above: Performed By: #### C BCTERESITAF, CMP #### [facility] [address] [place] [address] Chloride [Moles/Vol] 103 mmol/L Normal 97-105 [facility] Comment on above: Performed By: #### C BCTERESITAF, CMP #### [facility] [address] [place] [address] CO2 [Moles/Vol] 29 mmol/L Normal 22-30 [facility] Comment on above: Performed By: #### C BCTERESITAF, CMP #### [facility] [address] [place] [phone] Creatinine [Mass/Vol] 0.90 mg/dL Normal 0.73-1.22 [facility] Comment on above: Performed By: #### C BCTERESITAF, CMP #### [facility] [address] [place] [address] eGFR- Amer. >60 Normal [facility] Comment on above: Performed By: #### C BCDIF, CMP #### [facility] [address] GFR/1.73 sq M predicted among non-blacks MDRD (S/P/Bld) [Vol rate/Area] mL/min/{1.73_m2} Normal [facility] Comment on above: Result Comment: eGFR (Estimated [...] reflect actual GFR. Performed By: #### C GIBRAN JOSEPH #### [facility] [address] [place] [address] Glucose [Mass/Vol] 87 mg/dL Normal 74-99 [facility] Comment on above: Result Comment: The [place] Diabetes Association (ADA) provides guidance for cutoff [...] Standards of Medical Care in Diabetes 2016, [place] Diabetes Association. Diabetes Care. 2016.39(Suppl 1). Performed By: #### C GIBRAN JOSEPH #### [facility] [address] [place] [address] Potassium [Moles/Vol] 3.6 mmol/L Low 3.7-5.1 [facility] Comment on above: Performed By: #### C GIBRAN JOESPH #### [facility] [address] [place], [place] [phone] Protein [Mass/Vol] 7.8 g/dL Normal 6.3-8.0 [facility] Comment on above: Performed By: #### C JAKE CMP #### [facility] [address] [place], [place] [phone] Sodium [Moles/Vol] 140 mmol/L Normal 136-144 [facility] Comment on above: Performed By: #### C GIBRAN JOSEPH #### [facility] [address] [place], [place] [phone] Urea nitrogen [Mass/Vol] 10 mg/dL Normal 12-21 [facility] Comment on above: Performed By: #### C BCDIF, CMP #### [facility] [address] [facility] [phone] ECG COMPLETEon 01-22-2019 ECG COMPLETE NAME : JORGE COVINGTON PID : [id number] : 1955 Gender : Male Race : ORD : [id number] Procedure Date : Jan 22 2019 12:21:31 Edit Date : Jan 22 2019 16:35:25 Diagnosis:SINUS BRADYCARDIA LOW VOLTAGE QRS NONSPECIFIC T WAVE ABNORMALITY ABNORMAL ECG 1422 no STEMI Confirmed by DO KINGSTON MICHELLE ([id number]), film editor supervisor CITLALY WOO ([id number]) on 01/22/2019 4:35:24 PM Systolic BP : 90 mmHg Diastolic BP : 51 mmHg Ventricular Rate : 57 BPM Atrial Rate : 57 BPM P-R Interval : 194 ms QRS Duration : 88 ms Q-T Interval : 384 ms QTC Calculation(Bazett) : 373 ms P Kingston : 76 degrees R Kingston : 53 degrees T Kingston : 208 degrees Test Reason : Chest Pain Location : 1 : ER 04 Overread By : DO KINGSTON MICHELLE Edited By : CITLALY WOO Referred By : System,System Acquired by : System,System [facility] [place] [facility] ED NOTEon 01-22-2019 ED NOTE HNO ID: [id number] Author: Annabel Couch RN Service: ? Author Type: Registered Nurse Type: ED Notes Filed: 01/22/2019 5:02 PM Note Text: Report called to Marjorie Rn. Patient in stable condition upon transfer to ICU [facility] [place] [facility] ED NOTE HNO ID: [id number] Author: Annabel Lowe) JAZZY Couch Service: ? Author Type: Registered Nurse Type: ED Notes Filed: 01/22/2019 4:22 PM Note Text: Tonnage Compilation Clerk called icu will be able to take report shortly on patient. Asked to hold patient in ED [facility] [place] [facility] ED NOTE HNO ID: [id number] Author: Annabel Lowe) JAZZY Couch Service: ? Author Type: Registered Nurse Type: ED Notes Filed: 01/22/2019 12:22 PM Note Text: Bed: ED-04 Expected date: Expected time: Means of arrival: Comments: [facility] ED NOTE HNO ID: [id number] Author: Annabel Lowe) JAZZY Couch Service: ? Author Type: Registered Nurse Type: ED Notes Filed: 01/22/2019 12:13 PM Note Text: Patient presents to ED with mental status change [facility] [place] [facility] ED PROV NOTEon 01-22-2019 ED PROV NOTE HNO ID: [id number] Author: Yue Kingston DO Service: Emergency Medicine [...] Per EMS, the patient had a negative [place] stroke scale. PAST MEDICAL HISTORY Diagnosis Date [...] and headaches. Hematological: Does not bruise/bleed easily. Psychiatric/Behaviora l: Negative for confusion and sleep disturbance. Physical [...] slurred speech. He knows he is at [facility]. He can tell me his birthday. [birth year]: [...] to ICU. I also spoke with the missile technician who is aware of the patient's admission. The attending who evaluated and managed this patient was Yue Kingston . HANDP obtained from pt's . Case was discussed with Dr. Trish Ozuna. Additional Tests or Interventions: ECG EKG INTERPRETATION: Ordered and Reviewed Rhythm: Sinus bradycardia Rate: 57 Kingston: Normal axis Intervals: Normal AL interval QRS Complex: Normal ST Segment: Normal [...] of the following condition(s): respiratory impairment and TURNING LATHE TENDER impairment, which the patient had and/or has high probability of suddenly developing. The patient received IV fluids, oxygen and consultation with (BIPAP) ICU during the time that critical care was provided. Critical care time excludes separately billed procedures. Critical care time documentation entered by Yue Kingston DO. SIGNATURE: DO Yue Montanez DO 01/22/19 1453 [facility] [place] HOSPon 01-22-2019 HOSP Patient:Cruz Covington MRN: Height:5' 6(1.676 m) Weight:219 lb 9.3 oz (99.6 kg) [...] [M54.5, G89.29] COPD (chronic obstructive pulmonary disease) ([facility]) [J44.9] Hypothyroidism [E03.9] GERD (gastroesophageal reflux disease) [K21.9] Overactive bladder [N32.81] Septicemia due to Klebsiella pneumoniae ([facility]) [A41.4] Allergies: Dust Mold Spores Date Verified: 02/01/19 Lab Values Lab Value Units Date High Low POTA* 4.5 mmol/L 02/01/2019 5.1 3.7 JUS* 42.5 % 02/01/2019 51.0 39.0 Progress Notes (): Annabel Couch, RN, RN 01/22/2019 12:13 PM Signed Patient presents to ED with mental status change Yue Kingston DO, DO 01/22/2019 2:53 PM Signed ED Provider Note [...] Per EMS, the patient had a negative [place] stroke scale. PAST MEDICAL HISTORY Diagnosis Date [...] and headaches. Hematological: Does not bruise/bleed easily. Psychiatric/Behaviora l: Negative for confusion and sleep disturbance. Physical [...] slurred speech. He knows he is at [facility]. He can tell me his birthday. 1254: [...] to ICU. I also spoke with the missile technician who is aware of the patient's admission. The attending who evaluated and managed this patient was Yue Kingston . HANDP obtained from pt's . Case was discussed with Dr. Trish Ozuna. Additional Tests or Interventions: ECG EKG INTERPRETATION: Ordered and Reviewed Rhythm: Sinus bradycardia Rate: 57 Kingston: Normal axis Intervals: Normal AL interval QRS Complex: Normal ST Segment: Normal [...] of the following condition(s): respiratory impairment and TURNING LATHE TENDER impairment, which the patient had and/or has high probability of suddenly developing. The patient received IV fluids, oxygen and consultation with (BIPAP) ICU during the time that critical care was provided. Critical care time excludes separately billed procedures. Critical care time documentation entered by Yue Kingston DO. SIGNATURE: DO Yue Montanez DO 01/22/19 1453 Previous Version Annabel Couch RN, RN 01/22/2019 12:22 PM Signed Bed: [...] Couch RN, RN 01/22/2019 4:22 PM Signed Tonnage Compilation Clerk called icu will be able to take report shortly on patient. Asked to hold patient in ED Annabel Couch RN, RN 01/22/2019 5:02 PM Signed Report called to Marjorie Hoang. Patient in stable condition upon transfer to ICU ANN COLE 01/22/2019 6:35 PM Signed MEDICATION HISTORY Patient Name:Solis Covington : 1955 Source of history:Family: Reliability of source: Appears reliable, clearly identified: Medication name, Medication dose, Medication route, Medication frequency and Timing of last dose, Pharmacy records: [facility] Pharmacy and Prescription bottles Medication Nonadherence [...] Itching, Other: See Comments Sneezing Preferred Pharmacy: [facility] Pharmacy Current [facility]ER Medications: Prior to Admission medications as of [...] twice daily. Unknown at Unknown time Yes JUSTEN GUERRERO, PHARMACIST January 22, 2019 6:31 PM Marjorie Zavaleta, RN, RN 01/22/2019 9:15 PM Signed Nursing Progress Note Patient Name: Jorge Covington Patient Location: [facility]-0001/[facility]--0001 -1 Daily Note to ICU 1 c monitor and bipap per cart from ER This note was completed by: Marjorie Zavaleta RN Gayatri Heart APRN.CNP 01/22/2019 11:38 PM Signed [facility] Provider [...] or alteration of vasopressors;Airway management;Laboratory tests;Radiology / Imaging;Sedation;Diur etic therapy;ABG;Chest x-ray Plan/Intervention (other): Intubation. Endocrine consult MD/DOUG Collaboration: Plan of care discussed with [facility] Brim Setter SIGNATURE: Gayatri Heart APRN.CNP PATIENT NAME: Jorge Covington DATE: January 22 2019 TIME: 11:26 PM Rosalinda Narayan, RN, RN 01/22/2019 11:44 PM Signed Pt being prepared for intubation. RT, RNs, KAE Armas at bedside. Time out performed. PT assessed. 100% fio2 administered via bag valve mask [id number] assisting via remote access camera and verifying that consent obtained. Consent confirmed as obtained by patient 2327-2 versed IV given, 50mg Rocuronium IV given 2329-200mg Propofol given 2330-pt becoming hypotensive 70's/50's 2321-neosynephrine 100mcg IV given 2332-neosynephrine 100mcg IV given 2333 #8 ETT placed 21 lip via glidescope. tueb secured. Positive co2 color change. bilat breath sounds auscultated. Pt placed on AC 18 TV500 fio2 60% peep 10 while awaiting vent setting orders. E-hospital notified for needed orders OGT place 2335-pt remains hypotensive neosynephrine 200mcg IV given 2414-s-jixhilel contacted again for orders 2342-CXR done. BP improving 90's/50's Dank Armas APRN.CRNA 01/22/2019 11:43 PM Signed INTUBATION PROCEDURE NOTE PROCEDURE DATE: January 22, 2019 PROCEDURE START TIME: 2329 PROCEDURE: OROTRACHEAL INTUBATION PRIMARY PROCEDURALIST: Dank Armas APRN.CRNA OUTREACH DIRECTOR(S): None INFORMED CONSENT: Due to emergent situation [...] 2019 TIME: 11:40 PM PAGER/CONTACT #: DAVID Sykes, CT 01/22/2019 11:53 PM Signed Radiology Service [...] NON-VIOLENT PATIENT NAME: Jorge Covington PATIENT LOCATION: [place] [address]/[facility] -1 The patient demonstrates as evidenced by the [...] NON-VIOLENT PATIENT NAME: Jorge Covington PATIENT LOCATION: [facility]-0001 -1 The patient demonstrates as evidenced by the [...] DATE: January 23, 2019 TIME: 12:27 AM JAZZY Del Rio APRN.CNP 01/23/2019 12:53 AM Signed [...] Collaboration: Plan of care discussed with [facility] Brim Setter SIGNATURE: Gayatri Heart APRN.CNP PATIENT NAME: Jorge [...] Levothyroxine and follow. Horace Jose Rai, MD, [facility] E-ICU Staff, Pulmonary and Critical Care Medicine [facility] Respiratory [facility] Pager #[phone] Shirley Romo DO 01/23/2019 8:27 AM Signed INTERNAL MEDICINE HANDP [...] Temp src Pulse Resp SpO2 Height Weight 01/23/1915 119/73 ? ? (!) 45 18 97 [...] 51 16 95 % ? ? 01/22/19 1900 86/50 ? ? (!) 55 20 95 % ? ? 01/22/191856 ? ? ? (!) 53 17 95 % ? ? 01/22/191854 ? ? ? (!) 54 18 94 % ? ? 01/22/19 185 ? ? ? (!) 53 17 93 % ? ? 01/22/19 184 92/58 ? ? 60 18 92 % ? ? 01/22/19 184 ? ? ? (!) 46 15 93 % ? ? 01/22/191834 ? ? ? (!) 48 16 95 % ? ? 01/22/19 1830 ? ? ? 61 16 (!) 86 % ? ? 01/22/191819 ? ? ? (!) 54 17 92 % ? ? 10/26/19 1815 ? ? ? (!) 53 17 92 % ? ? 01/22/19 1810 ? ? ? (!) 54 21 90 % ? ? 01/22/19 1800 93/54 ? ? (!) 55 23 (!) 87 % 167.6 cm (5' 6) 106.3 kg (234 lb 5.6 oz) 01/22/19 [...] with current poc Medication and Non-Pharmacologic VTE Prophylaxis/Anticoagu lants Anticoagulant AND Antiplatelet Medications (From admission, onward) Start Dose Route Frequency Ordered Stop 01/22/192229 heparin 5,000 Units injection (Medical Risk Categories) 5,000 Units SUBCUTANEOUS EVERY 12 HOURS 01/22/192228 -- 01/22/192229 pneumatic compression stockings (de,oh) 01/22/191814 vte non-pharmacologic prophylaxis - none indicated (de,[place]) 01/22/191814 activity - mobilize patient (de,vt) VTE Prophylaxis: VTE prophylaxis appropriate SIGNATURE: Shirley Romo DO PATIENT NAME: Jorge Covington DATE: January 23, 2019 TIME: 8:20 AM PAGER/CONTACT #: [phone] Drea Burciaga OT/L 01/23/2019 10:05 AM Signed OCCUPATIONAL THERAPY MISSED VISIT SERVICE DATE: 01/23/2019 SERVICE TIME: 1004 to 1004 ROOM: [place] [address] Attempted Evaluation. Patient not seen due to Illness. RNAlessandra, reported that pt is not appropriate for therapy at this time. Per pt chart, pt is sedated and intubated. Will re-attempt as schedule allows with pt appropriateness. SIGNATURE: Drea Burciaga OT/Eliseo PATIENT NAME: Jorge Covington DATE: January 23, 2019 TIME: 10:04 AM Shyanne Elder PT 01/23/2019 10:06 AM Signed PHYSICAL THERAPY MISSED VISIT SERVICE DATE: 01/23/2019 SERVICE TIME: 1003 to 1004 ROOM: [place] [address] Attempted Evaluation. Patient not seen due to Illness(Per nsg pt not appropriate for PT Eval at this time. Sedated. Intubated). SIGNATURE: Shyanne Elder PT PATIENT NAME: Jorge Covington DATE: January 23, 2019 TIME: 10:05 AM Camila Rizvi MD, MD 01/25/2019 11:17 AM Edited 63 y.o. M [...] ideally T4 and T3 replacement - c/w ceftriaxone/azithromy jennifer (01/22- ) - follow up blood cultures [...] is in agreement with current management plan. [facility] STAFF PHYSICIAN NOTE OF PERSONAL INVOLVEMENT [...] year old male, Ht 167.6 cm (5' 6) BMI 37.82 kg/m2, with a PMH significant for hypothyroidism and heavy smoking. Mr. Covington presented to the ED on the evening of 01/22 with confusions, slurred speech and weakness. His weakness has been progressing over the past week per chart review. On arrival to the [place] ED, his O2 saturation on room air [...] (!) 53 14 94 % ? ? 01/22/19 2215 ? ? ? (!) 43 16 96 [...] ? 36.8 ?C (98.2 ?F) Temporal ? 01/22/19 1930 102/62 ? ? (!) 50 17 97 % ? ? 01/22/19 1925 98/55 ? ? (!) 51 16 95 % ? ? 01/22/19 1900 86/50 ? ? (!) 55 20 95 % ? ? 01/22/191856 ? ? ? (!) 53 17 95 % ? ? 01/22/191854 ? ? ? (!) 54 18 94 % ? ? 01/22/19 1850 ? ? ? (!) 53 17 93 % ? ? 01/22/19 1845 92/58 ? ? 60 18 92 % ? ? 01/22/19 1840 ? ? ? (!) 46 15 93 % ? ? 01/22/19 1835 ? ? ? (!) 48 16 95 % ? ? 01/22/19 1830 ? ? ? 61 16 (!) 86 % ? ? 01/22/19 1820 ? ? ? (!) 54 17 92 % ? ? 01/22/195 ? ? ? (!) 53 17 92 % ? ? 01/22/19 1810 ? ? ? (!) 54 21 90 % ? ? 01/22/19 1800 93/54 ? ? (!) 55 23 (!) 87 % 167.6 cm (5' 6) 106.3 kg (234 lb 5.6 oz) 01/22/19 [...] Lipase Recent Labs 01/23/19 0535 01/23/19 0110 01/22/19 2250 01/22/19 1227 TPROT -- -- -- -- 7.8 ALB -- -- -- -- 4.1 ALT -- -- -- -- 23 AST -- -- -- -- 53* ALKPHOS -- -- -- -- 80 TBILI -- -- -- -- 0.2 LACT 1.1 0.9 0.4* < > -- < > = values in this interval not displayed. Cardiac Enzymes ABGs Recent Labs 01/23/19 0535 01/23/19 0110 01/22/19 2250 PH 7.374 7.294* 7.226* PCO2 43.0 51.8* 67.5* PO2 98.8* 81.7* 115* BE -0.3 -2.2 -1.7 HCO3 24.5 24.3 27.0* O2HB 95.1 92.6* 94.5* COHB 1.3 1.6 1.7 MHGB 1.2 1.2 1.2 Christina Sheikh MD Staff, Respiratory [facility] Pager #[phone] Previous Version Rossi Farmer MD 01/23/2019 12:24 [...] -- IV lt4 is being ordered from [facility] and should arrive by 1 pm -- [...] assisted care facility after his discharge from [facility] for admission of intradural cyst vs spinal [...] (LEVOPHED) 0.5-50 mcg/min INTRAVENOUS CONTINUOUS Gayatri E (Lacquer Dipping Machine Operator) Sly - DOPamine iv infusion 800 mg/250 mL D5W 2.5-20 mcg/kg/min INTRAVENOUS CONTINUOUS Gayatri E (Lacquer Dipping Machine Operator) Sly Stopped at 01/23/19 0324 - levothyroxine [...] tab(s) (DITROPAN XL) 5 mg ORAL DAILY Hsirley M Esterle 5 mg at 01/23/19 0914 - heparin 5,000 Units injection 5,000 Units SUBCUTANEOUS q 12 H Gayatri E (Lacquer Dipping Machine Operator) Sly 5,000 Units at 01/23/19 0850 - cefTRIAXone 1 g in D5W 100 mL MB+ (ROCEPHIN) 1 g INTRAVENOUS q 24 H Gayatri E (Lacquer Dipping Machine Operator) Sly 200 mL/hr at 01/23/19 0848 1 g at 01/23/19 0848 - propofol infusion (DIPRIVAN) 5-60 mcg/kg/min INTRAVENOUS CONTINUOUS Gayatri E (Lacquer Dipping Machine Operator) Sly - fentaNYL 20 mcg/mL iv infusion in NaCl 0.9% 100 mL 25-250 mcg/hr INTRAVENOUS CONTINUOUS Gayatri E (Lacquer Dipping Machine Operator) Sly 10 mL/hr at 01/23/19 0947 200 [...] file Gets together: Not on file Attends synagogue service: Not on file Active member of [...] (Axillary) Resp 15 Ht 167.6 cm (5' 6) Wt 106.3 kg (234 lb 5.6 oz) [...] Fingerstick glucose readings reviewed. Rossi Farmer MD [facility] Endocrinology and Metabolism [facility] January 23, 2019 11:20 AM Previous Version [...] infusion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 Phone: [facility] 05-30-2024 15:13-0500 Body mass index (BMI) [Ratio] 35.5 kg/m2 Cristy Bearden PA Work Phone: [facility] 05-30-2024 15:13-0500 Body temperature 98.1 [degF] Cristy Bearden PA Work Phone: [facility] 05-30-2024 15:13-0500 Diastolic blood pressure 79 mm[Hg] Cristy Bearden PA Work Phone: [facility] 05-30-2024 15:13-0500 Heart rate 90 /min Cristy Bearden PA Work Phone: [facility] 05-30-2024 15:13-0500 Respiratory rate 16 /min Cristy Bearden PA Work Phone: [facility] 05-30-2024 15:13-0500 Systolic blood pressure 117 mm[Hg] Cristy Bearden PA Work Phone: [facility] 05-02-2024 15:21-0500 Body weight 99.3 kg Cristy Bearden PA Work Phone: [facility] 05-02-2024 14:54-0500 Body mass index (BMI) [Ratio] 35.5 kg/m2 Cristy Bearden PA Work Phone: [facility] 05-02-2024 14:54-0500 Body temperature 98.5 [degF] Cristy Bearden PA Work Phone: [facility] 05-02-2024 14:54-0500 Diastolic blood pressure 59 mm[Hg] Cristy Bearden PA Work Phone: [facility] 05-02-2024 14:54-0500 Heart rate 89 /min Cristy Bearden PA Work Phone: [facility] 05-02-2024 14:54-0500 Respiratory rate 18 /min Cristy Beadren PA Work Phone: [facility] 05-02-2024 14:54-0500 Systolic blood pressure 110 mm[Hg] Cristy Bearden PA Work Phone: [facility] 04-04-2024 15:44-0500 Body mass index (BMI) [Ratio] 35.5 kg/m2 Cristy Bearden PA Work Phone: [facility] 04-04-2024 15:44-0500 Respiratory rate 16 /min Cristy Bearden PA Work Phone: [facility] 03-30-2024 00:12-0500 Body temperature 96.6 [degF] Cristy Bearden PA Work Phone: [facility] 03-30-2024 00:12-0500 Body weight 99.79 kg Cristy Bearden PA Work Phone: [facility] 03-30-2024 00:12-0500 Diastolic blood pressure 105 mm[Hg] Cristy Bearden PA Work Phone: [facility] 03-30-2024 00:12-0500 Heart rate 90 /min Cristy Bearden PA Work Phone: [facility] 03-30-2024 00:12-0500 Systolic blood pressure 154 mm[Hg] Cristy Bearden PA Work Phone: [facility] 03-21-2024 15:42-0500 Body mass index (BMI) [Ratio] 35.5 kg/m2 Cristy Bearden PA Work Phone: [facility] 03-21-2024 15:42-0500 Body temperature 98.8 [degF] Cristy Bearden PA Work Phone: [facility] 03-21-2024 15:42-0500 Diastolic blood pressure 84 mm[Hg] Cristy Bearden PA Work Phone: [facility] 03-21-2024 15:42-0500 Heart rate 92 /min Cristy Bearden PA Work Phone: [facility] 03-21-2024 15:42-0500 Respiratory rate 18 /min Cristy Bearden PA Work Phone: [facility] 03-21-2024 15:42-0500 Systolic blood pressure 157 mm[Hg] Cristy Bearden PA Work Phone: [facility] 02-28-2024 00:17-0500 Body weight 99.79 kg Cristy Bearden PA Work Phone: [facility] 02-24-2024 15:06-0500 Body mass index (BMI) [Ratio] 35.5 kg/m2 Cristy Bearden PA Work Phone: [facility] 02-24-2024 15:06-0500 Body temperature 98.1 [degF] Cristy Bearden PA Work Phone: [facility] 02-24-2024 15:06-0500 Diastolic blood pressure 86 mm[Hg] Cristy Bearden PA Work Phone: [facility] 02-24-2024 15:06-0500 Heart rate 84 /min Cristy Bearden PA Work Phone: [facility] 02-24-2024 15:06-0500 Respiratory rate 16 /min Cristy Bearden PA Work Phone: [facility] 02-24-2024 15:06-0500 Systolic blood pressure 142 mm[Hg] Cristy Bearden PA Work Phone: [facility] 01-29-2024 00:20-0400 Body weight 99.79 kg Cristy Bearden PA Work Phone: [facility] 01-22-2024 09:34-0400 Body height 167.6 cm Rikki Casas MD Work Phone: [facility] [email or web address] 01-22-2024 09:34-0400 Body mass index (BMI) [Ratio] 29.05 kg/m2 Rikki Casas MD Work Phone: [facility] 01-22-2024 09:34-0400 Body weight 81.65 kg Rikki Casas MD Work Phone: [facility] [email or web address] 12-11-2023 14:35-0400 Diastolic blood pressure 73 mm[Hg] Rikki Casas MD Work Phone: [facility] 12-11-2023 14:35-0400 Heart rate 67 /min Rikki Casas MD Work Phone: [facility] 12-11-2023 14:35-0400 SaO2% (BldA) [Mass fraction] 99 % Rikki Casas MD Work Phone: [facility] 12-11-2023 14:35-0400 Systolic blood pressure 105 mm[Hg] Rikki Casas MD Work Phone: [facility] 12-11-2023 14:00-0400 Body temperature 97.5 [degF] Rikki Casas MD Work Phone: [facility] 12-11-2023 14:00-0400 Respiratory rate 16 /min Rikki Casas MD Work Phone: [facility] 07-22-2023 13:04-0400 Body mass index (BMI) [Ratio] 35.5 kg/m2 [employer] Kemi Ramiro [employer] Work Phone: [facility] 07-22-2023 13:04-0400 Body temperature 96.6 [degF] [employer] Kemi Ramiro [employer] Work Phone: [facility] 07-22-2023 13:04-0400 Diastolic blood pressure 105 mm[Hg] [employer] Kemi Ramiro [employer] Work Phone: [facility] 07-22-2023 13:04-0400 Heart rate 90 /min [employer] Kemi Ramiro [employer] Work Phone: [facility] 07-22-2023 13:04-0400 Respiratory rate 18 /min [employer] Kemi Ramiro [employer] Work Phone: [facility] 07-22-2023 13:04-0400 Systolic blood pressure 154 mm[Hg] [employer] Kemi Ramiro [employer] Work Phone: [facility] 07-02-2023 16:59-0400 Body height 167.64 cm [employer] Kemi Ramiro [employer] Work Phone: [facility] 07-02-2023 16:59-0400 Body mass index (BMI) [Ratio] 26.6 kg/m2 [employer] Kemi Ramiro [employer] Work Phone: [facility] 07-02-2023 16:59-0400 Body temperature 98.1 [degF] [employer] Kemi Ramiro [employer] Work Phone: [facility] 07-02-2023 16:59-0400 Body weight 74.84 kg [employer] Kemi Ramiro [employer] Work Phone: [facility] 07-02-2023 16:59-0400 Diastolic blood pressure 72 mm[Hg] [employer] Kemi Ramiro [employer] Work Phone: [facility] 07-02-2023 16:59-0400 Heart rate 84 /min [employer] Kemi Ramiro [employer] Work Phone: [facility] 07-02-2023 16:59-0400 Respiratory rate 14 /min [employer] Kemi Ramiro [employer] Work Phone: [facility] 07-02-2023 16:59-0400 SaO2% (BldA) [Mass fraction] 94 % [employer] Kemi Ramiro [employer] Work Phone: [facility] 07-02-2023 16:59-0400 Systolic blood pressure 114 mm[Hg] [employer] Kemi Ramiro [employer] Work Phone: [facility] 06-29-2023 00:27-0400 Body weight 99.79 kg [employer] Kemi Ramiro [employer] Work Phone: [facility] 06-15-2023 09:34-0400 Body mass index (BMI) [Ratio] 35.5 kg/m2 [employer] Kemi Ramiro [employer] Work Phone: [facility] 06-15-2023 09:34-0400 Body temperature 97.4 [degF] [employer] Kemi Ramiro [employer] Work Phone: [facility] 06-15-2023 09:34-0400 Diastolic blood pressure 89 mm[Hg] [employer] Kemi Ramiro [employer] Work Phone: [facility] 06-15-2023 09:34-0400 Heart rate 85 /min [employer] Kemi Ramiro [employer] Work Phone: [facility] 06-15-2023 09:34-0400 Respiratory rate 16 /min [employer] Kemi Ramiro [employer] Work Phone: [facility] 06-15-2023 09:34-0400 Systolic blood pressure 144 mm[Hg] [employer] Kemi Ramiro [employer] Work Phone: [facility] 05-29-2023 00:38-0500 Body weight 99.79 kg [employer] Kemi Ramiro [employer] Work Phone: [facility] 05-18-2023 09:04-0500 Body mass index (BMI) [Ratio] 35.5 kg/m2 [employer] Kemi Ramiro [employer] Work Phone: [facility] 05-18-2023 09:04-0500 Body temperature 96.2 [degF] [employer] Kemi Ramiro [employer] Work Phone: [facility] 05-18-2023 09:04-0500 Diastolic blood pressure 96 mm[Hg] [employer] Kemi Ramiro [employer] Work Phone: [facility] 05-18-2023 09:04-0500 Heart rate 91 /min [employer] Kemi Ramiro [employer] Work Phone: [facility] 05-18-2023 09:04-0500 Respiratory rate 16 /min [employer] Kemi Ramiro [employer] Work Phone: [facility] 05-18-2023 09:04-0500 Systolic blood pressure 147 mm[Hg] [employer] Kemi Ramiro [employer] Work Phone: [facility] 04-30-2023 00:55-0500 Body weight 99.79 kg [employer] Kemi Ramiro [employer] Work Phone: [facility] 04-21-2023 13:42-0500 Body mass index (BMI) [Ratio] 35.5 kg/m2 [employer] Kemi Ramiro [employer] Work Phone: [facility] 04-21-2023 13:42-0500 Body temperature 97.6 [degF] [employer] Kemi Ramiro [employer] Work Phone: [facility] 04-21-2023 13:42-0500 Diastolic blood pressure 92 mm[Hg] [employer] Kemi Ramiro [employer] Work Phone: [facility] 04-21-2023 13:42-0500 Heart rate 87 /min [employer] Kemi Ramiro [employer] Work Phone: [facility] 04-21-2023 13:42-0500 Respiratory rate 18 /min [employer] Kemi Ramiro [employer] Work Phone: [facility] 04-21-2023 13:42-0500 Systolic blood pressure 163 mm[Hg] [employer] Kemi Ramiro [employer] Work Phone: [facility] 03-30-2023 00:45-0500 Body weight 99.79 kg [employer] Kemi Ramiro [employer] Work Phone: [facility] 03-16-2023 08:57-0500 Body mass index (BMI) [Ratio] 35.5 kg/m2 [employer] Kemi Ramiro [employer] Work Phone: [facility] 03-16-2023 08:57-0500 Body temperature 97.1 [degF] [employer] Kemi Ramiro [employer] Work Phone: [facility] 03-16-2023 08:57-0500 Diastolic blood pressure 74 mm[Hg] [employer] Kemi Ramiro [employer] Work Phone: [facility] 03-16-2023 08:57-0500 Heart rate 91 /min [employer] Kemi Ramiro [employer] Work Phone: [facility] 03-16-2023 08:57-0500 Respiratory rate 18 /min [employer] Kemi Ramiro [employer] Work Phone: [facility] 03-16-2023 08:57-0500 Systolic blood pressure 145 mm[Hg] [employer] Kemi Ramiro [employer] Work Phone: [facility] 02-27-2023 00:47-0500 Body weight 99.79 kg [employer] Kemi Ramiro [employer] Work Phone: [facility] 02-16-2023 08:54-0500 Body mass index (BMI) [Ratio] 35.5 kg/m2 [employer] Kemi Ramiro [employer] Work Phone: [facility] 02-16-2023 08:54-0500 Body temperature 95.3 [degF] [employer] Kemi Ramiro [employer] Work Phone: [facility] 02-16-2023 08:54-0500 Diastolic blood pressure 81 mm[Hg] [employer] Kemi Ramiro [employer] Work Phone: [facility] 02-16-2023 08:54-0500 Heart rate 83 /min [employer] Kemi Ramiro [employer] Work Phone: [facility] 02-16-2023 08:54-0500 Respiratory rate 16 /min [employer] Kemi Ramiro [employer] Work Phone: [facility] 02-16-2023 08:54-0500 Systolic blood pressure 136 mm[Hg] [employer] Kemi Ramiro [employer] Work Phone: [facility] 01-28-2023 00:48-0400 Body weight 99.79 kg [employer] Kemi Ramiro [employer] Work Phone: [facility] 01-19-2023 08:17-0400 Body mass index (BMI) [Ratio] 35.5 kg/m2 [employer] Kemi Ramiro [employer] Work Phone: [facility] 01-19-2023 08:17-0400 Body temperature 96.7 [degF] [employer] Kemi Ramiro [employer] Work Phone: [facility] 01-19-2023 08:17-0400 Diastolic blood pressure 64 mm[Hg] [employer] Kemi Ramiro [employer] Work Phone: [facility] 01-19-2023 08:17-0400 Heart rate 74 /min [employer] Kemi Ramiro [employer] Work Phone: [facility] 01-19-2023 08:17-0400 Respiratory rate 16 /min [employer] Kemi Ramiro [employer] Work Phone: [facility] 01-19-2023 08:17-0400 Systolic blood pressure 118 mm[Hg] [employer] Kemi Ramiro [employer] Work Phone: [facility] 12-28-2022 00:40-0400 Body weight 99.79 kg [employer] Kemi Ramiro [employer] Work Phone: [facility] 12-08-2022 08:52-0400 Body mass index (BMI) [Ratio] 35.5 kg/m2 [employer] Kemi Ramiro [employer] Work Phone: [facility] 12-08-2022 08:52-0400 Body temperature 96.7 [degF] [employer] Kemi Ramiro [employer] Work Phone: [facility] 12-08-2022 08:52-0400 Diastolic blood pressure 67 mm[Hg] [employer] Kemi Ramiro [employer] Work Phone: [facility] 12-08-2022 08:52-0400 Heart rate 80 /min [employer] Kemi Ramiro [employer] Work Phone: [facility] 12-08-2022 08:52-0400 Respiratory rate 18 /min [employer] Kemi Ramiro [employer] Work Phone: [facility] 12-08-2022 08:52-0400 Systolic blood pressure 133 mm[Hg] [employer] Kemi Ramiro [employer] Work Phone: [facility] 11-28-2022 00:28-0400 Body weight 99.79 kg [employer] Kemi Ramiro [employer] Work Phone: [facility] 11-24-2022 15:31-0400 Body temperature 98.7 [degF] [employer] Kemi Ramiro [employer] Work Phone: [facility] 11-24-2022 15:31-0400 Diastolic blood pressure 66 mm[Hg] [employer] Kemi Ramiro [employer] Work Phone: [facility] 11-24-2022 15:31-0400 Heart rate 61 /min [employer] Kemi Ramiro [employer] Work Phone: [facility] 11-24-2022 15:31-0400 Respiratory rate 18 /min [employer] Kemi Ramiro [employer] Work Phone: [facility] 11-24-2022 15:31-0400 SaO2% (BldA) [Mass fraction] 97 % [employer] Kemi Ramiro [employer] Work Phone: [facility] 11-24-2022 15:31-0400 Systolic blood pressure 133 mm[Hg] [employer] Kemi Ramiro [employer] Work Phone: [facility] 11-21-2022 16:22-0400 Body height 167.64 cm [employer] Kemi Ramiro [employer] Work Phone: [facility] 11-21-2022 16:22-0400 Body mass index (BMI) [Ratio] 24.2 kg/m2 [employer] Kemi Ramiro [employer] Work Phone: [facility] 11-21-2022 16:22-0400 Body weight 68 kg [employer] Kemi Ramiro [employer] Work Phone: [facility] 11-10-2022 08:37-0400 Body mass index (BMI) [Ratio] 35.5 kg/m2 [employer] Kemi Ramrio [employer] Work Phone: [facility] 11-10-2022 08:37-0400 Diastolic blood pressure 75 mm[Hg] [employer] Kemi Ramiro [employer] Work Phone: [facility] 11-10-2022 08:37-0400 Heart rate 70 /min [employer] Kemi Ramiro [employer] Work Phone: [facility] 11-10-2022 08:37-0400 Respiratory rate 16 /min [employer] Kemi Ramiro [employer] Work Phone: [facility] 11-10-2022 08:37-0400 Systolic blood pressure 114 mm[Hg] [employer] Kemi Ramiro [employer] Work Phone: [facility] 10-28-2022 00:15-0400 Body temperature 96.9 [degF] [employer] Kemi Ramiro [employer] Work Phone: [facility] 10-28-2022 00:15-0400 Body weight 99.79 kg [employer] Kemi Ramiro [employer] Work Phone: [facility] 10-20-2022 08:28-0400 Body mass index (BMI) [Ratio] 35.5 kg/m2 PA Cristy Biedenharn Work Phone: [facility] 10-20-2022 08:28-0400 Body temperature 96.9 [degF] PA Cristy Biedenharn Work Phone: [facility] 10-20-2022 08:28-0400 Diastolic blood pressure 60 mm[Hg] PA Cristy Biedenharn Work Phone: [facility] 10-20-2022 08:28-0400 Heart rate 85 /min PA Cristy Biedenharn Work Phone: [facility] 10-20-2022 08:28-0400 Respiratory rate 16 /min PA Cristy Biedenharn Work Phone: [facility] 10-20-2022 08:28-0400 Systolic blood pressure 100 mm[Hg] PA Cristy Biedenharn Work Phone: [facility] 09-27-2022 00:55-0400 Body weight 99.79 kg PA Cristy Biedenharn Work Phone: [facility] 09-15-2022 08:09-0400 Body mass index (BMI) [Ratio] 35.5 kg/m2 Dr. Nathanael Cardona Work Phone: [facility] 09-15-2022 08:09-0400 Body temperature 96.2 [degF] Dr. Nathanael Cardona Work Phone: [facility] 09-15-2022 08:09-0400 Diastolic blood pressure 56 mm[Hg] Dr. Nathanael Cardona Work Phone: [facility] 09-15-2022 08:09-0400 Heart rate 76 /min Dr. Nathanael Cardona Work Phone: [facility] 09-15-2022 08:09-0400 Respiratory rate 16 /min Dr. Nathanael Cardona Work Phone: [facility] 09-15-2022 08:09-0400 Systolic blood pressure 120 mm[Hg] Dr. Nathanael Cardona Work Phone: [facility] 09-05-2022 08:48-0400 Body temperature 97.3 [degF] Dr. Nathanael Cardona Work Phone: [facility] 09-05-2022 08:48-0400 Diastolic blood pressure 69 mm[Hg] Dr. Nathanael Cardona Work Phone: [facility] 09-05-2022 08:48-0400 Heart rate 80 /min Dr. Nathanael Cardona Work Phone: [facility] 09-05-2022 08:48-0400 Respiratory rate 18 /min Dr. Nathanael Cardona Work Phone: [facility] 09-05-2022 08:48-0400 SaO2% (BldA) [Mass fraction] 95 % Dr. Nathanael Cardona Work Phone: [facility] 09-05-2022 08:48-0400 Systolic blood pressure 117 mm[Hg] Dr. Nathanael Cardona Work Phone: [facility] 08-28-2022 00:23-0400 Body weight 99.[address] Nathanael Cardona Work Phone: [facility] 08-18-2022 08:35-0400 Body mass index (BMI) [Ratio] 35.5 kg/m2 Dr. Nathanael Cardona Work Phone: [facility] 08-18-2022 08:35-0400 Body temperature 97.2 [degF] Dr. Nathanael Cardona Work Phone: [facility] 08-18-2022 08:35-0400 Diastolic blood pressure 53 mm[Hg] Dr. Nathanael Cardona Work Phone: [facility] 08-18-2022 08:35-0400 Heart rate 81 /min Dr. Nathanael Cardona Work Phone: [facility] 08-18-2022 08:35-0400 Respiratory rate 16 /min Dr. Nathanael Cardona Work Phone: [facility] 08-18-2022 08:35-0400 Systolic blood pressure 112 mm[Hg] Dr. Nathanael Cardona Work Phone: [facility] 07-28-2022 00:25-0400 Body weight 99.[address] Nathanael Cardona Work Phone: [facility] 07-14-2022 08:21-0400 Body mass index (BMI) [Ratio] 35.5 kg/m2 Dr. Nathanael Cardona Work Phone: [facility] 07-14-2022 08:21-0400 Body temperature 96.8 [degF] Dr. Nathanael Cardona Work Phone: [facility] 07-14-2022 08:21-0400 Diastolic blood pressure 67 mm[Hg] Dr. Nathanael Cardona Work Phone: [facility] 07-14-2022 08:21-0400 Heart rate 84 /min Dr. Nathanael Cardona Work Phone: [facility] 07-14-2022 08:21-0400 Respiratory rate 18 /min Dr. Nathanael Cardona Work Phone: [facility] 07-14-2022 08:21-0400 Systolic blood pressure 118 mm[Hg] Dr. Nathanael Cardona Work Phone: [facility] 06-28-2022 01:16-0400 Body weight 99.[address] Nathanael Cardona Work Phone: [facility] 06-18-2022 14:35-0400 Body temperature 97.6 [degF] Dr. Nathanael Cardona Work Phone: [facility] 06-18-2022 14:35-0400 Diastolic blood pressure 64 mm[Hg] Dr. Nathanael Cardona Work Phone: [facility] 06-18-2022 14:35-0400 Heart rate 77 /min Dr. Nathanael Cardona Work Phone: [facility] 06-18-2022 14:35-0400 Respiratory rate 16 /min Dr. Nathanael Cardona Work Phone: [facility] 06-18-2022 14:35-0400 SaO2% (BldA) [Mass fraction] 97 % Dr. Nathanael Cardona Work Phone: [facility] 06-18-2022 14:35-0400 Systolic blood pressure 95 mm[Hg] Dr. Nathanael Cardona Work Phone: [facility] 06-18-2022 12:17-0400 Body height 167.[address] Nathanael Cardona Work Phone: [facility] 06-18-2022 12:17-0400 Body mass index (BMI) [Ratio] 30.3 kg/m2 Dr. Nathanael Cardona Work Phone: [facility] 06-18-2022 12:17-0400 Body weight 85.[address] Nathanael Cardona Work Phone: [facility] 06-09-2022 08:15-0400 Body mass index (BMI) [Ratio] 35.5 kg/m2 Dr. Nathanael Cardona Work Phone: [facility] 06-09-2022 08:15-0400 Body temperature 95.9 [degF] Dr. Nathanael Cardona Work Phone: [facility] 06-09-2022 08:15-0400 Diastolic blood pressure 56 mm[Hg] Dr. Nathanael Cardona Work Phone: [facility] 06-09-2022 08:15-0400 Heart rate 86 /min Dr. Nathanael Cardona Work Phone: [phone] [place] [address] 06-09-2022 08:15-0400 Respiratory rate 16 /min Dr. Nathanael Cardona Work Phone: [facility] 06-09-2022 08:15-0400 Systolic blood pressure 131 mm[Hg] Dr. Nathanael Cardona Work Phone: [facility] 05-28-2022 00:14-0500 Body weight 99.[address] Nathanael Cardona Work Phone: [facility] 05-27-2022 13:34-0500 Body height 167.[address] Nathanael Cardona Work Phone: [facility] 05-27-2022 13:34-0500 Body mass index (BMI) [Ratio] 30.3 kg/m2 Dr. Nathanael Cardona Work Phone: [facility] 05-27-2022 13:34-0500 Body weight 85.[address] Nathanael Cardona Work Phone: [facility] 05-27-2022 13:34-0500 Diastolic blood pressure 70 mm[Hg] Dr. Nathanael Cardona Work Phone: [facility] 05-27-2022 13:34-0500 Respiratory rate 18 /min Dr. Nathanael Cardona Work Phone: [facility] 05-27-2022 13:34-0500 Systolic blood pressure 139 mm[Hg] Dr. Nathanael Cardona Work Phone: [facility] 05-26-2022 08:40-0500 Body mass index (BMI) [Ratio] 35.5 kg/m2 Dr. Nathanael Cardona Work Phone: [facility] 05-26-2022 08:40-0500 Body temperature 96.4 [degF] Dr. Nathanael Cardona Work Phone: [facility] 05-26-2022 08:40-0500 Diastolic blood pressure 61 mm[Hg] Dr. Nathanael Cadrona Work Phone: [facility] 05-26-2022 08:40-0500 Heart rate 82 /min Dr. Nathanael Cardona Work Phone: [facility] 05-26-2022 08:40-0500 Respiratory rate 16 /min Dr. Nathanael Cardona Work Phone: [facility] 05-26-2022 08:40-0500 Systolic blood pressure 111 mm[Hg] Dr. Nathanael Cardona Work Phone: [facility] 05-02-2022 15:16-0500 Diastolic blood pressure 67 mm[Hg] Dr. Nathanael Cardona Work Phone: [facility] 05-02-2022 15:16-0500 Heart rate 80 /min Dr. Nathanael Cardona Work Phone: [facility] 05-02-2022 15:16-0500 Respiratory rate 16 /min Dr. Nathanael Cardona Work Phone: [facility] 05-02-2022 15:16-0500 SaO2% (BldA) [Mass fraction] 95 % Dr. Nathanael Cardona Work Phone: [facility] 05-02-2022 15:16-0500 Systolic blood pressure 125 mm[Hg] Dr. Nathanael Cardona Work Phone: [facility] 05-02-2022 12:41-0500 Inhaled oxygen flow rate 2 L/min Dr. Nathanael Cardona Work Phone: [facility] 05-02-2022 12:04-0500 Body temperature 98.2 [degF] Dr. Nathanael Cardona Work Phone: [facility] 05-02-2022 12:00-0500 Body height 167.[address] Nathanael Cardona Work Phone: [facility] 05-02-2022 12:00-0500 Body mass index (BMI) [Ratio] 29.6 kg/m2 Dr. Nathanael Cardona Work Phone: [facility] 05-02-2022 12:00-0500 Body weight 83.[address] Nathanael Cardona Work Phone: [facility] 04-30-2022 14:49-0500 Respiratory rate 18 /min Dr. Nathanael Cardona Work Phone: [facility] 04-30-2022 12:12-0500 Body temperature 97.9 [degF] Dr. Nathanael Cardona Work Phone: [facility] 04-30-2022 12:12-0500 Diastolic blood pressure 65 mm[Hg] Dr. Nathanael Cardona Work Phone: [facility] 04-30-2022 12:12-0500 Heart rate 80 /min Dr. Nathanael Cardona Work Phone: [facility] 04-30-2022 12:12-0500 SaO2% (BldA) [Mass fraction] 92 % Dr. Nathanael Cardona Work Phone: [facility] 04-30-2022 12:12-0500 Systolic blood pressure 112 mm[Hg] Dr. Nathanael Cardona Work Phone: [facility] 04-30-2022 00:20-0500 Body weight 99.[address] Nathanael Cardona Work Phone: [facility] 04-29-2022 21:33-0500 Body temperature 97.8 [degF] Dr. Nathanael Cardona Work Phone: [facility] 04-29-2022 21:33-0500 Diastolic blood pressure 65 mm[Hg] Dr. Nathanael Cardona Work Phone: [facility] 04-29-2022 21:33-0500 Heart rate 77 /min Dr. Nathanael Cardona Work Phone: [facility] 04-29-2022 21:33-0500 Respiratory rate 16 /min Dr. Nathanael Cardona Work Phone: [facility] 04-29-2022 21:33-0500 SaO2% (BldA) [Mass fraction] 94 % Dr. Nathanael Cardona Work Phone: [facility] 04-29-2022 21:33-0500 Systolic blood pressure 121 mm[Hg] Dr. Nathanael Cardona Work Phone: [facility] 04-29-2022 13:32-0500 Body height 167.[address] Nathanael Cardona Work Phone: [facility] 04-29-2022 13:32-0500 Body weight 99.[address] Nathanael Cardona Work Phone: [facility] 04-28-2022 17:34-0500 Body mass index (BMI) [Ratio] 35.5 kg/m2 Dr. Nathanael Cardona Work Phone: [facility] 04-25-2022 08:01-0500 Body mass index (BMI) [Ratio] 35.5 kg/m2 Dr. Nathanael Cardona Work Phone: [facility] 04-25-2022 08:01-0500 Body temperature 96.6 [degF] Dr. Nathanael Cardona Work Phone: [facility] 04-25-2022 08:01-0500 Diastolic blood pressure 42 mm[Hg] Dr. Nathanael Cardona Work Phone: [facility] 04-25-2022 08:01-0500 Heart rate 88 /min Dr. Nathanael Cardona Work Phone: [facility] 04-25-2022 08:01-0500 Systolic blood pressure 100 mm[Hg] Dr. Nathanael Cardona Work Phone: [facility] 04-15-2022 13:50-0500 Respiratory rate 16 /min Dr. Nathanael Cardona Work Phone: [facility] 03-30-2022 00:07-0500 Body weight 99.[address] Nathanael Cardona Work Phone: [facility] 03-28-2022 08:11-0500 Body mass index (BMI) [Ratio] 35.5 kg/m2 Dr. Nathanael Cardona Work Phone: [facility] 03-28-2022 08:11-0500 Body temperature 97.1 [degF] Dr. Nathanael Cardona Work Phone: [facility] 03-28-2022 08:11-0500 Diastolic blood pressure 50 mm[Hg] Dr. Nathanael Cardona Work Phone: [facility] 03-28-2022 08:11-0500 Heart rate 85 /min Dr. Nathanael Cardona Work Phone: [facility] 03-28-2022 08:11-0500 Respiratory rate 18 /min Dr. Nathanael Cardona Work Phone: [facility] 03-28-2022 08:11-0500 Systolic blood pressure 88 mm[Hg] Dr. Nathaanel Cardona Work Phone: [facility] 02-28-2022 09:40-0500 Body height 167.[address] Nathanale Cardona Work Phone: [facility] Work Phone: 02-28-2022 09:40-0500 Body weight 99.[address] Nathanael Cardona Work Phone: [facility] 02-08-2022 14:59-0500 Diastolic blood pressure 62 mm[Hg] [facility] 02-08-2022 14:59-0500 Heart rate 74 /min [facility] 02-08-2022 14:59-0500 Respiratory rate 14 /min [facility] 02-08-2022 14:59-0500 SaO2% (BldA) [Mass fraction] 99 % [facility] 02-08-2022 14:59-0500 Systolic blood pressure 111 mm[Hg] [facility] 02-08-2022 13:48-0500 Body temperature 97.1 [degF] [facility] 02-08-2022 10:59-0500 Body height 167.64 cm [facility] Work Phone: 02-08-2022 10:59-0500 Body mass index (BMI) [Ratio] 33.5 kg/m2 [facility] 02-08-2022 10:59-0500 Body weight 94.3 kg [facility] Encounters Encounter Date Encounter Type Care Provider Facility Start: 10-03-2024 ambulatory [facility] Facility:[facility] Start: 09-16-2024 End: 09-16-2024 Dr. Edmundo Quevedo [facility] Work Phone: Start: 09-16-2024 End: 09-16-[address] Nathanael Cardona MD [facility] Work Phone: Start: 08-29-2024 ambulatory [facility] Facility:[facility] Start: 08-29-2024 Dr. Luca Nayak MD -[facility] Start: 08-29-2024 End: 09-26-2024 Dr. Luca Nayak MD -[facility] Work Phone: Start: 08-29-2024 End: 09-26-[address] Nathanael Cardona MD -Wound Healing Ce nter Start: 08-07-2024 End: 08-07-2024 Dr. Kit Harris MD -Emergency Departm ent Work Phone: Start: 08-07-2024 End: 08-07-2024 Emergency department patient visit Dr. Nathanael Cardona MD -Emergency Department Work Phone: Start: 08-05-2024 ambulatory Edmundo Quevedo Facility:[facility] Start: 08-02-2024 End: 08-02-2024 Dr. [facility] Start: 08-02-2024 End: 08-02-2024 Emergency department patient visit Cristy Bearden PA Work Phone: -Emergency Department Work Phone: Start: 08-01-2024 Non-patient / Non-visit Dr. Isha Zurita MD [facility] Work Phone: Start: 08-01-2024 Dr. Isha Zurita MD [facility] Work Phone: Start: 07-31-2024 Non-patient / Non-visit Dr. Miller Blank MD [facility] Work Phone: Start: 07-31-2024 Dr. Miller Blank MD [facility] Work Phone: Start: 07-30-2024 Non-patient / Non-visit Dr. Miller Blank MD [facility] Work Phone: Start: 07-30-2024 Dr. Miller Blank MD [facility] Work Phone: Start: 07-29-2024 End: 08-01-2024 Evaluation and management of inpatient Dr. Basilio Dill DO -Progressive Care Unit Work Phone: Start: 07-29-2024 End: 08-01-2024 Dr. Basilio Dill DO -Progressive Care Un it Work Phone: Start: 07-29-2024 End: 07-29-2024 ambulatory Rocio Gutierrez RN [facility] Start: 07-29-2024 End: 07-29-2024 Patient encounter procedure Rocio Gutierrez RN [facility] Clinical Communication Start: 07-26-2024 Non-patient / Non-visit Dr. Luca Nayak MD -[facility] Start: 07-25-2024 End: 07-27-[address] Luca Nayak MD -[facility] Work Phone: Start: 07-25-2024 End: 07-27-2024 Dr. Luca Naayk MD -[facility] Cent[facility] Work Phone: Start: 07-25-2024 End: 07-27-2024 ambulatory [facility] Facility:[facility] Start: 07-11-2024 End: 07-11-2024 ambulatory Cristy Bearden PA Work Phone: [facility] Work Phone: Start: 07-11-2024 End: 07-11-[address] [facility] Start: 07-11-2024 End: 07-11-2024 Dr. Nathanael Cardona MD -Laboratory [facility] Work Phone: Start: 07-11-2024 End: 07-11-2024 ambulatory Nathanael Cardona Facility:[facility] Start: 06-27-2024 ambulatory [facility] Facility:[facility] Start: 06-27-2024 Non-patient / Non-visit Dr. Luca Nayak MD -[facility] Start: 06-27-2024 Dr. uLca Nayak MD -[facility] Start: 06-27-2024 End: 06-27-2024 ambulatory Cristy Bearden PA Work Phone: [facility] Work Phone: Start: 06-27-2024 End: 06-27-[address] Luca Nayak MD -[facility] Work Phone: Start: 06-27-2024 End: 06-27-2024 Dr. Luca Nayak MD -[facility] Cent[facility] Work Phone: Start: 03-26-[address] Juliana Shaw MD -Cardiovascular Services Work Phone: Start: 06-22-2024 ambulatory Juliana Shaw Facility:[facility] Start: 06-22-2024 Dr. Juliana Shaw MD -[facility] rdi[facility] Services Work Phone: Start: 06-12-2024 Non-patient / Non-visit Dr. Juliana Shaw MD -[facility] Work Phone: Start: 06-12-2024 Dr. Juliana Shaw MD [facility] Work Phone: Start: 06-11-2024 Non-patient / Non-visit Dr. Juliana Shaw MD [facility] Work Phone: Start: 06-11-2024 Dr. Juliana Shaw MD [facility] Work Phone: Start: 06-10-2024 Non-patient / Non-visit Dr. Juliana Shaw MD -[facility] Work Phone: Start: 06-10-2024 Dr. Juliana Shaw MD [facility] Work Phone: Start: 06-09-2024 ambulatory Nathanael Cardona Facilit y:[facility] Start: 06-09-2024 End: 06-12-2024 Evaluation and management of inpatient Dr. Juliana Shaw MD -Progressive Care Unit Work Phone: Start: 06-09-2024 End: 06-12-2024 Dr. Juliana Shaw MD -Progressive Care Un it Work Phone: Start: 06-03-2024 End: 06-03-[address] Edmundo Quevedo MD -[facility] Work Phone: Start: 06-03-2024 End: 06-03-2024 Dr. Edmundo Quevedo MD -[facility] Work Phone: Start: 06-03-2024 End: 06-03-2024 ambulatory Nathanael Erasmo Facility:[facility] Start: 05-30-2024 ambulatory Luca Nayak [facility] Start: 05-30-2024 Non-patient / Non-visit Dr. Luca Nayak MD -[facility] Start: 05-30-2024 Dr. Luca Nayak MD -[facility] Start: 05-30-[address] Luca schultz MD -[facility] Work Phone: Start: 05-02-2024 End: 05-27-2024 Discharged Recurring Kemibehzad Rubio [employer] -[facility] Work Phone: Start: 05-02-2024 End: 05-27-2024 ambulatory Nathanael Cardona Facility:[facility] Start: 05-02-2024 Non-patient / Non-visit Dr. Luca Nayak MD -[facility] Start: 04-04-2024 ambulatory Luca Nayak Facility:[facility] Start: 04-04-2024 Non-patient / Non-visit Dr. Luca Nayak MD -[facility] Start: 04-04-2024 End: 04-29-2024 Discharged Recurring Kemibehzad Rubio [employer] -[facility] Work Phone: Start: 04-04-2024 End: 04-29-2024 ambulatory Nathanael Cardona Facility:[facility] Start: 03-31-2024 End: 03-31-2024 Telephone encounter Rikki Casas MD Work Phone: [facility] Comment on above: Orders Start: 03-30-2024 ambulatory Nathanael Cardona Facilit y:[facility] Start: 03-24-2024 End: 03-24-2024 Discharged Recurring Kemibehzad Rubio [employer] -[facility] Start: 03-24-2024 End: 03-24-2024 ambulatory Kemigriselda Rubio [employer] Facility:[facility] Start: 03-21-2024 ambulatory Nathanael Cardona Facilit y:[facility] Start: 03-21-2024 Non-patient / Non-visit Dr. Luca Nayak MD -[facility] Start: 03-21-2024 End: 03-29-2024 Discharged Recurring Kemibehzad Rubio [employer] -[facility] Work Phone: Start: 03-21-2024 End: 03-29-2024 ambulatory Nathanael Cardona Facility:[facility] Start: 02-24-2024 ambulatory Luca Nayak [facility] Start: 02-24-2024 Non-patient / Non-visit Kemi Rubio [employer] -[facility] Start: 02-24-2024 End: 02-27-[address] Luca Nayak MD -[facility] Work Phone: Start: 02-24-2024 End: 02-27-2024 ambulatory Nathanael Cardona Facility:[facility] Start: 01-27-2024 End: 01-28-2024 [facility] Start: 01-25-2024 End: 01-26-2024 Telephone encounter Rikki Casas MD Work Phone: [facility] Comment on above: Other Start: 01-25-2024 End: 01-25-2024 [facility] Start: 01-22-2024 End: 01-22-2024 Office outpatient visit 15 minutes Rikki Casas MD [facility]: [facility] Comment on above: Urinary retention (P rimary Dx) Start: 01-22-2024 End: 01-22-2024 [facility] Start: 01-13-2024 ambulatory Luca Nayak [facility] Start: 01-13-2024 End: 01-13-2024 [facility] Start: 12-25-2023 End: 12-25-2023 [facility] Start: 12-23-2023 ambulatory Luca Nayak [facility] Start: 12-23-2023 End: 12-28-2023 ambulatory [facility] Facility:[facility] Start: 12-18-2023 End: 12-28-2023 ambulatory Emerald Slater RN [facility] Start: 12-18-2023 End: 12-28-2023 Patient encounter procedure Emerald Slater RN [facility] Start: 12-11-2023 End: 12-11-2023 [facility] Start: 12-11-2023 End: 12-11-2023 Subsequent hospital visit by physician Rikki Casas MD Work Phone: [facility] Start: 12-10-2023 End: 12-10-2023 Telephone encounter Rikki Casas MD Work Phone: [facility] Start: 12-07-2023 ambulatory [facility] Start: 12-07-2023 End: 12-07-2023 Telephone encounter Rikki Casas MD Work Phone: [facility] Start: 11-23-2023 End: 11-28-2023 ambulatory [facility] Facility:[facility] Start: 11-18-2023 End: 11-18-2023 ambulatory Nathanael Cardona Facility:[facility] Start: 11-04-2023 ambulatory Kemi Rubio [employer] Fa cility:[facility] Start: 10-23-2023 End: 10-23-2023 [facility] Start: 10-12-2023 End: 10-28-2023 ambulatory Cristy Bearden Facility:[facility] Start: 08-19-2023 Telephone encounter Zackery Carmona MD Work Phone: [facility] Start: 07-22-2023 Non-patient / Non-visit [employer] Kemi Rubio [employer] Work Phone: [facility] Start: 07-22-2023 End: 07-28-2023 ambulatory [employer] Kemi Rubio [employer] Work Phone: [facility] Work Phone: Start: 07-22-2023 End: 07-28-2023 Discharged Recurring [employer] Kemi Rubio [employer] Work Phone: [facility] Healing [facility] Work Phone: Start: 07-02-2023 End: 07-02-2023 Patient encounter procedure [employer] Kemi Earlyndell [employer] Work Phone: [facility] Work Phone: Start: 06-29-2023 Non-patient / Non-visit [employer] Kemibehzad EarlyRamiro [employer] Work Phone: [facility] Start: 06-15-2023 Non-patient / Non-visit [employer] Kemi Ramiro [employer] Work Phone: [facility] Start: 06-15-2023 End: 06-28-2023 ambulatory [employer] Kemi E Ramiro [employer] Work Phone: [facility] Work Phone: Start: 06-15-2023 End: 06-28-2023 Discharged Recurring [employer] Kemi Ramiro [employer] Work Phone: [facility] Work Phone: Start: 06-14-2023 Telephone encounter Nathanael fritz MD Work Phone: [facility] Clinical Communication Comment on above: Other Start: 06-01-2023 Non-patient / Non-visit [employer] Kemi Earlyndell [employer] Work Phone: [facility] Start: 05-18-2023 Non-patient / Non-visit [employer] Kemibehzad EarlyRamiro [employer] Work Phone: [facility] Start: 05-18-2023 End: 05-28-2023 ambulatory [employer] Kemi E Ramiro [employer] Work Phone: [facility] Work Phone: Start: 05-18-2023 End: 05-28-2023 Discharged Recurring [employer] Kemi Ramiro [employer] Work Phone: [facility] Work Phone: Start: 05-04-2023 Non-patient / Non-visit [employer] Kemibehzad EarlyRamiro [employer] Work Phone: [facility] Start: 04-21-2023 Non-patient / Non-visit [employer] Kemi Ramiro [employer] Work Phone: [facility] Start: 04-21-2023 End: 04-29-2023 ambulatory [employer] Kemi E Ramiro [employer] Work Phone: [facility] Work Phone: Start: 04-21-2023 End: 04-29-2023 Discharged Recurring [employer] Kemi Ramiro [employer] [facility] Work Phone: Start: 04-06-2023 Non-patient / Non-visit [employer] Kemi Ramiro [employer] Work Phone: [facility] Start: 03-16-2023 Non-patient / Non-visit [employer] Kemi Ramiro [employer] Work Phone: [facility] Start: 03-16-2023 End: 03-29-2023 ambulatory [employer] Kemi E Ramiro [employer] Work Phone: [facility] Work Phone: Start: 03-16-2023 End: 03-29-2023 Discharged Recurring [employer] Kemi Ramiro [employer] [facility] Work Phone: Start: 03-06-2023 ambulatory Adilene Laguna C linical Communication Start: 03-06-2023 Patient encounter procedure Adilene [facility] Clinical Communication Start: 03-02-2023 Non-patient / Non-visit [employer] Kemi Ramiro [employer] Work Phone: [facility] Start: 02-16-2023 Non-patient / Non-visit [employer] Kemi Raimro [employer] Work Phone: [facility] Start: 02-16-2023 End: 02-16-2023 ambulatory [employer] Kemibehzad Earlyndell [employer] Work Phone: [facility] Work Phone: Start: 02-16-2023 End: 02-16-2023 Patient encounter procedure [employer] Kemi Ramiro [employer] Work Phone: [facility]-Radiology, [facility] Work Phone: Start: 02-16-2023 End: 02-26-2023 ambulatory [employer] Kemi Kia Ramiro [employer] Work Phone: [facility] Work Phone: Start: 02-16-2023 End: 02-26-2023 Discharged Recurring [employer] Kemi Earlyndell [employer] [facility] Work Phone: Start: 02-16-2023 Registered Recurring [employer] Johnbeatriz abel Ramiro [employer] [facility] Work Phone: Start: 01-19-2023 Non-patient / Non-visit [employer] Kemi Earlyndell [employer] Work Phone: [facility] Start: 01-19-2023 End: 01-27-2023 ambulatory [employer] Kemi Kia EarlyRamiro [employer] Work Phone: [facility] Work Phone: Start: 01-19-2023 End: 01-27-2023 Discharged Recurring [employer] Kemi Earlyndell [employer] [facility] Work Phone: Start: 12-29-2022 Non-patient / Non-visit [employer] Kemibehzad EarlyRamiro [employer] Work Phone: [facility] Start: 12-19-2022 End: 12-19-2022 Patient encounter procedure [employer] Kemi Workmanell [employer] Work Phone: [facility] Work Phone: Start: 12-08-2022 Non-patient / Non-visit [employer] Kemi Earlyndell [employer] Work Phone: [facility] Start: 12-08-2022 End: 12-27-2022 ambulatory [employer] Kemi Workmanell [employer] Work Phone: [facility] Work Phone: Start: 12-08-2022 End: 12-27-2022 Discharged Recurring [employer] Kemi Earlyndell [employer] [facility] Work Phone: Start: 11-24-2022 Non-patient / Non-visit [employer] Kemi Earlyndell [employer] Work Phone: [facility] Start: 11-23-2022 Non-patient / Non-visit [employer] Kemi Earlyndell [employer] Work Phone: [facility] Start: 11-22-2022 Non-patient / Non-visit [employer] Kemibehzad EarlyRamiro [employer] Work Phone: [facility] Start: 11-21-2022 End: 11-24-2022 Evaluation and management of inpatient [employer] Kemi Earlyndell [employer] [facility] Work Phone: Start: 11-21-2022 Non-patient / Non-visit [employer] Kemi Ramiro [employer] Work Phone: [facility] Start: 11-10-2022 Non-patient / Non-visit [employer] Kemibehzad EarlyRamiro [employer] Work Phone: [facility] Start: 11-10-2022 End: 11-27-2022 ambulatory [employer] Kemi Rubio [employer] Work Phone: [facility] Work Phone: Start: 11-10-2022 End: 11-27-2022 Discharged Recurring [employer] Kemi Ramiro [employer] Work Phone: [facility] Work Phone: Start: 11-10-2022 Registered Recurring [employer] Darryl colten Ramiro [employer] Work Phone: [facility] Work Phone: Start: 10-20-2022 Non-patient / Non-visit PA Cristy Biedenharn Work Phone: [facility] Start: 10-20-2022 End: 10-27-2022 ambulatory PA Cristy Biedenharn Work Phone: [facility] Work Phone: Start: 10-20-2022 End: 10-27-2022 Discharged Recurring PA Cristy Biedenharn Work Phone: [facility] Work Phone: Start: 10-17-2022 End: 10-17-2022 Non-patient / Non-visit [employer] Kemi Rubio [employer] Work Phone: [facility] Work Phone: Start: 10-06-2022 Non-patient / Non-visit PA Cristy Biedenharn Work Phone: [facility] Start: 09-15-2022 Non-patient / Non-visit Dr. Nathanael Cardona Work Phone: [facility] Start: 09-15-2022 End: 09-26-[address] Nathanael Cardona Work Phone: [facility] Work Phone: Start: 09-15-2022 End: 09-26-[address] Nathanael Cardona Work Phone: [facility] Work Phone: Start: 09-05-2022 End: 09-05-[address] Nathanael Cardona Work Phone: [facility] Work Phone: Start: 09-01-2022 Non-patient / Non-visit Dr. Nathanael Cardona Work Phone: [facility] Start: 08-18-2022 Non-patient / Non-visit Dr. Nathanael Cardona Work Phone: [facility] Start: 08-18-2022 End: 08-27-[address] Nathanael Cardona Work Phone: [facility] Work Phone: Start: 08-18-2022 End: 08-27-[address] Nathanael Cardona Work Phone: [facility] Start: 07-28-2022 Non-patient / Non-visit Dr. Nathanael Cardona Work Phone: [facility] Start: 07-14-2022 Non-patient / Non-visit Dr. Nathanael Cardona Work Phone: [facility] Start: 07-14-2022 End: 07-27-[address] Nathanael Cardona Work Phone: [facility] Work Phone: Start: 07-14-2022 End: 07-27-[address] Nathanael Cardona Work Phone: [facility] Start: 06-30-2022 Non-patient / Non-visit Dr. Nathanael Cardona Work Phone: [facility] Start: 06-18-2022 Non-patient / Non-visit Dr. Nathanael Cardona Work Phone: [facility] Start: 06-18-2022 End: 06-18-2022 Admission to same day surgery center Dr. Nathanael Cardona Work Phone: [facility]-Endoscopy Start: 06-18-2022 End: 06-18-[address] Nathanael Cardona Work Phone: [facility] Work Phone: Start: 06-09-2022 Non-patient / Non-visit Dr. Nathanael Cardona Work Phone: [facility] Start: 06-09-2022 End: 06-27-[address] Nathanael Cardona Work Phone: [facility] Work Phone: Start: 06-09-2022 End: 06-27-[address] Nathanael Cardona Work Phone: [facility] Start: 06-09-[address] Ritika Cardona Work Phone: [facility] Start: 05-27-2022 End: 05-27-[address] Nathanael Cardona Work Phone: [facility] Start: 05-26-2022 Non-patient / Non-visit Dr. Nathanael Cardona Work Phone: [facility] Start: 05-26-2022 End: 05-27-[address] Nathanael Cardona Work Phone: [facility] Work Phone: Start: 05-26-2022 End: 05-27-[address] Nathanael Cardona Work Phone: [facility] Start: 05-12-2022 Non-patient / Non-visit Dr. Nathanael Cardona Work Phone: [facility] Start: 05-05-2022 Non-patient / Non-visit Dr. Nathanael Cardona Work Phone: [facility] Start: 05-02-2022 End: 05-02-2022 Emergency department patient visit Dr. Nathanael Cardona Work Phone: [facility] Start: 04-30-2022 Non-patient / Non-visit Dr. Nathanael Cardona Work Phone: [facility] Start: 04-29-2022 Non-patient / Non-visit Dr. Nathanael Cardona Work Phone: [facility] Start: 04-29-2022 Non-patient / Non-visit Dr. Nathanael Cardona Work Phone: [facility] Start: 04-28-2022 End: 04-30-2022 Evaluation and management of inpatient [facility] Start: 04-28-2022 End: 04-28-2022 Non-patient / Non-visit Dr. Nathanael Cardona Work Phone: [facility] Start: 04-25-2022 End: 04-29-[address] Nathanael Cardona Work Phone: [facility] Work Phone: Start: 04-25-2022 End: 04-29-[address] [facility] Start: 04-25-2022 Non-patient / Non-visit [facility] Nathanael Cardona Work Phone: [facility] Start: 04-15-2022 Non-patient / Non-visit Dr. Nathanael Cardona Work Phone: [facility] Start: 04-10-2022 Non-patient / Non-visit Dr. Nathanael Cardona Work Phone: [facility] Start: 03-28-2022 Non-patient / Non-visit Dr. Nathanael Cardona Work Phone: [facility] Start: 03-28-2022 End: 03-29-[address] Nathanael Cardona Work Phone: [facility] Work Phone: Start: 03-28-2022 End: 03-29-[address] [facility]athana[facility] Cardona [facility] Start: 03-14-2022 Non-patient / Non-visit Dr. Nathanael Cardona Work Phone: [facility] Start: 03-07-2022 Non-patient / Non-visit Dr. Nathanael Cardona Work Phone: [facility] Start: 02-28-2022 Non-patient / Non-visit Dr. Nathanael Cardona Work Phone: [facility] Start: 02-08-2022 End: 02-08-2022 Emergency department patient visit [facility] Start: 06-22-2018 End: 06-22-2018 Patient encounter procedure [facility] Facility:[facility] Procedures Date Procedure Procedure Detail Performing Clinician Start: 08-07-2024 Urine microscopy: red cells Dr. Nathanael Cardona MD Start: 08-07-2024 Urnls dip stick/tabl et reagent auto microscopy Dr. Nathanael Cardona MD Start: 08-07-2024 CT of head without contrast Dr. Nathanael Cardona MD Start: 08-07-2024 Plain chest X-ray Dr. Leopoldo Cardona MD Start: 08-07-2024 Blood count smear mc rscp w/mnl difrntl wbc count Dr. Nathanael Cardona MD Start: 08-07-[address] Nathanael Cardona MD Start: 08-07-2024 Mean corpuscular hem oglobin concentration determination Dr. Nathanael Cardona MD Start: 08-07-2024 Nucleated red blood cell count procedure Dr. Nathanael Cardona MD Start: 08-07-2024 Platelet mean volume determination Dr. Nathanael Cardona MD Start: 08-02-2024 Urine microscopy: red cells Dr. Nathanael Cardona MD Start: 08-02-2024 Urnls dip stick/tabl et reagent auto microscopy Dr. Nathanael Cardona MD Start: 08-02-[address] Nathanael Cardona MD Start: 08-02-2024 Venous oxygen satura tion measurement Dr. Nathanael Cardona MD Start: 08-02-2024 X-ray of chest, PA a nd lateral views [facility] Work Phone: Start: 08-02-2024 Blood count smear mc rscp w/mnl difrntl wbc count Dr. Nathanael Cardona MD Start: 08-02-[address] Nathanael Cardona MD Start: 08-02-2024 Mean corpuscular hem oglobin concentration determination Dr. Nathanael Cardona MD Start: 08-02-2024 Nucleated red blood cell count procedure Dr. Nathanael Cardona MD Start: 08-02-2024 Platelet mean volume determination Dr. Nathanael Cardona MD Start: 08-01-2024 [facility] Start: 08-01-2024 Blood count smear mc rscp w/mnl difrntl wbc count Dr. Nathanael Cardona MD Start: 08-01-[address] Nathanael Cardona MD Start: 08-01-2024 Mean corpuscular hem oglobin concentration determination Dr. Nathanael Cardona MD Start: 08-01-2024 Nucleated red blood cell count procedure Dr. Nathanael Cardona MD Start: 08-01-2024 Platelet mean volume determination Dr. Nathanael Cardona MD Start: 07-31-2024 Serum inorganic phos phate measurement Dr. Nathanael Cardona MD Start: 07-30-[address] Dav Cardona MD Start: 07-29-2024 X-ray of chest, PA a nd lateral views [facility] Work Phone: Start: 07-29-2024 Calculation of international normalized ratio Dr. Nathanael Cardona MD Start: 07-29-2024 Urine microscopy: red cells Dr. Nathanael Cardona MD Start: 07-29-2024 Urnls dip stick/tabl et reagent auto microscopy Dr. Nathanael Cardona MD Start: 07-29-[address] Ritika Cardona MD Start: 07-29-2024 SARS-CoV-2, Influenz a & RSV (PCR) Cristy Bearden PA Work Phone: Start: 07-29-2024 Urine culture Cristy lozano PA Work Phone: Start: 07-29-2024 Dr. Anthony Cardona MD Start: 07-11-2024 Blood count smear mc rscp w/mnl difrntl wbc count Dr. Nathanael Cardona MD Start: 07-11-2024 Mean corpuscular hem oglobin concentration determination Dr. Nathanael Cardona MD Start: 07-11-2024 Nucleated red blood cell count procedure Dr. Nathanael Cardona MD Start: 07-11-2024 Platelet mean volume determination Dr. Nathanael Cardona MD Start: 07-11-2024 Prostate specific an tigen measurement Dr. Nathanael Cardona MD Comment on above: This test was perfor med using the [employer] tPSA method. Measured values of a patient sample can vary depending on the testing procedure used. PSA values determined on patient samples by different testing procedures cannot be used interchangeably. If there is a change in PSA assays while monitoring therapy, sequential testing should be performed to confirm baseline values. Start: 07-11-2024 Total cholesterol:HD L ratio measurement Dr. Nathanael Cardona MD Start: 06-12-2024 Blood count smear mc rscp w/mnl difrntl wbc count Dr. Nathanael Cardona MD Start: 06-12-[address] Nathanael Cardona MD Start: 06-12-2024 Mean corpuscular hem oglobin concentration determination Dr. Nathanael Cardona MD Start: 06-12-2024 Nucleated red blood cell count procedure Dr. Nathanael Cardona MD Start: 06-12-2024 Platelet mean volume determination Dr. Nathanael Cardona MD Start: 06-09-2024 Blood culture Cristy lozano PA Work Phone: Start: 06-09-2024 SARS-CoV-2, Influenz a & RSV (PCR) Cristy GONZALEZ Work Phone: Start: 06-09-2024 Urine culture Cristy GONZALEZ Work Phone: Start: 06-09-2024 Dr. Anthony Cardona MD Start: 06-09-[address] Dav Cardona MD Start: 06-09-2024 Urine microscopy: red cells Dr. Nathanael Cardona MD Start: 06-09-2024 Urnls dip stick/tabl et reagent auto microscopy Dr. Nathanael Cardona MD Start: 06-09-2024 X-ray of chest, PA a nd lateral views Cristy GONZALEZ Work Phone: Start: 06-03-2024 X-ray of cervical spine Cristy GONZALEZ Work Phone: Start: 04-06-2023 Anaerobic microbial culture [employer] Kemi Ramiro [employer] Work Phone: Start: 04-06-2023 Investigation of transfusion reaction [employer] Kemi Ramiro [employer] Work Phone: Start: 04-06-2023 Microbial culture, routine [employer] Kemi Ramiro [employer] Work Phone: Start: 02-16-2023 Radiography of thora cic spine [employer] Kemi Ramiro [employer] Work Phone: Start: 11-21-2022 Construction of end colostomy [employer] Kemi Ramiro [employer] Work Phone: Start: 11-10-2022 Anaerobic microbial culture [employer] Kemi Ramiro [employer] Work Phone: Start: 11-10-2022 Investigation of transfusion reaction [employer] Kemi Ramiro [employer] Work Phone: Start: 11-10-2022 Microbial culture, routine [employer] Kemi Ramiro [employer] Work Phone: Start: 07-14-[address] Nathanael Cardona Work Phone: Start: 07-14-2022 Investigation of transfusion reaction Dr. Nathanael Cardona Work Phone: Start: 07-14-2022 Microbial culture, routine Dr. Nathanael Cardona Work Phone: Start: 06-18-[address] Anthony Cardona Work Phone: Start: 05-02-2022 CT of pelvis with contrast Dr. Nathanael Cardona Work Phone: Start: 05-02-2022 CT cervical spine wi thout contrast Dr. Nathanael Cardona Work Phone: Start: 05-02-2022 CT of head without contrast Dr. Nathanael Cardona Work Phone: Start: 04-28-[address] Nathanael Cardona Work Phone: Start: 02-08-2022 Plain chest X-ray Start: 02-08-2022 Computed tomography of abdomen and pelvis with intravenous contrast Anaerobic microbial culture Dr. Nathanael Cardona Work Phone: Anaerobic microbial culture Dr. Nathanael Cardona Work Phone: Anaerobic microbial culture Dr. Nathanael Cardona Work Phone: Anaerobic microbial culture Dr. Nathanael Cardona Work Phone: Clostridium difficil e detection Dr. Nathanael Cardona Work Phone: Fungus stain method Dr. Amol Cardona Work Phone: H/O: colostomy S/P colostomy [employer] Kemi Rubio [employer] Work Phone: Comment on above: Patient is a 67-year -old male who makes his first postoperative visit following laparoscopic diverting colostomy on 11/21/2022. He has healed well and his ostomy appears to be working well. He does have soiling of his ostomy appliance, but he confirms that his is taking good care of this and seems to be changing the appliance every couple of days. There are no concerning features of his abdominal exam. Therefore I do not find cause for further follow-up and defer wound management to the wound care center and plastic surgery. Investigation of transfusion reaction Dr. Nathanael Cardona Work Phone: Investigation of transfusion reaction Dr. Nathanael Cardona Work Phone: Investigation of transfusion reaction Dr. Nathanael Cardona Work Phone: Investigation of transfusion reaction Dr. Nathanael Cardona Work Phone: Microbial culture, routine D surendra Cardona Work Phone: Microbial culture, routine D surendra Cardona Work Phone: Microbial culture, routine D surendra Cardona Work Phone: Microbial culture, routine D surendra Cardona Work Phone: Microbial culture, routine D surendra Cardona Work Phone: Mycology culture Dr. Nathanael Cardona Work Phone: Plan of Treatment Date Care Activity Detail Author Start: 11-28-2024 Influenza vaccination Influenza Vaccine (Season Ended) [facility] Start: 08-07-2024 [facility] Start: 08-07-2024 [facility] Start: 08-02-2024 [facility] Start: 08-01-2024 Patient discharge [facility] Start: 08-01-2024 Wound care [facility] Start: 07-31-2024 [facility] Start: 07-30-2024 Referral to service [facility] Start: 07-30-2024 End: 07-30-2024 [facility] Start: 07-30-2024 Care regimes management [facility] Start: 07-30-2024 Notification of physician [facility] Start: 07-30-2024 Consultation for treatment [facility] Start: 07-29-2024 Following clinical pathway protocol [facility] Start: 07-29-2024 Aspiration precautions [facility] Start: 07-29-2024 Assessment of risk of venous thromboembolism [facility] Start: 07-29-2024 Consultation [facility] Start: 07-29-2024 Fall prevention [facility] Start: 07-29-2024 Inhalation therapy procedure [facility] Start: 07-29-2024 Insertion of catheter into peripheral vein [facility] Start: 07-29-2024 Measuring intake and output [facility] Start: 07-29-2024 Providing care according to standard [facility] Start: 07-29-2024 Provision of activity privileges [facility] Start: 07-29-2024 Referral to occupational therapist [facility] Start: 07-29-2024 Referral to service [facility] Start: 07-29-2024 [facility] Start: 07-29-2024 Admission procedure [facility] Start: 07-29-2024 [facility] Start: 07-29-2024 Blood culture Blood Culture [facility] Start: 07-29-2024 Patient referral to [facility] Start: 06-12-2024 Patient discharge [facility] Start: 06-10-2024 Referral to service [facility] Start: 06-10-2024 Referral to [facility] Start: 06-09-2024 Bacteria identified in Blood by Culture Blood Culture [facility] Start: 06-09-2024 Bacteria identified in Urine by Culture Urine Culture [facility] Start: 06-09-2024 Blood culture Blood Culture [facility] Start: 06-09-2024 Wound care [facility] Start: 06-09-2024 Assessment of risk of venous thromboembolism [facility] Start: 06-09-2024 Consultation for treatment [facility] Start: 06-09-2024 Inhalation therapy procedure [facility] Start: 06-09-2024 Insertion of catheter into peripheral vein [facility] Start: 06-09-2024 Measuring intake and output [facility] Start: 06-09-2024 Oxygen therapy [facility] Start: 06-09-2024 Providing care according to standard [facility] Start: 06-09-2024 Provision of activity privileges [facility] Start: 06-09-2024 Referral to occupational therapist [facility] Start: 06-09-2024 Referral to service [facility] Start: 06-09-2024 [facility] Start: 06-09-2024 Verification routine [facility] Start: 06-09-2024 Admission procedure [facility] Start: 06-09-2024 Hospital admission, emergency, from emergency room, medical nature [facility] Start: 06-09-2024 End: 06-09-2024 [facility] Start: 01-22-2024 End: 01-22-2024 Patient encounter procedure [facility] Start: 12-11-2023 End: 12-11-2023 Admission to same day surgery center 12/11/2023 1:30 PM EDT - 12/11/2023 2:30 PM EDT Surgery [facility] [address] [place] [phone] Rikki Casas MD [address] [place] [phone] CYSTOSCOPY [56847 (CPT )] [facility] Comment on above: CYSTOSCOPY [44224 (CPT )] Start: 12-11-2023 End: 12-11-2023 Anesthesia consultation 12/11/2023 1:30 PM EDT Anesthesia Event [facility] [address] [place] [phone] Edy Timmons, FLORIST'S DECORATOR - SECURITY CONTROL CENTER OPERATOR [address] [place], [place] [id number] [facility] Start: 12-11-2023 Subsequent hospital visit by physician 12/11/2023 1:30 PM EDT Hospital Encounter [facility] [address] [place] [phone] Rikki Casas MD [address] [place] [phone] [facility] Start: 12-11-2023 End: 12-11-2023 Cystostomy cystotomy w/drainage [facility] Start: 12-11-2023 End: 12-11-2023 Cystourethroscopy [facility] Start: 11-29-2023 COVID-19 Vaccine () COVID-19 Vaccine () [facility] Start: 11-29-2023 COVID-19 Vaccine ( season) COVID-19 Vaccine ( season) [facility] Start: 11-29-2023 Influenza vaccination Influenza Vaccine (#1) [facility] Start: 10-23-2023 End: 10-23-2023 Patient encounter procedure 10/23/2023 10:30 AM EDT Office Visit [facility] [address] [place] [phone] Rikki Casas MD [address] [place] [phone] [facility] Start: 10-12-2023 End: 10-12-2023 Patient encounter procedure 10/12/2023 2:00 PM EDT Office Visit [facility] [address] [place] [phone] Zackery Carmona MD [address] [place] [address] [facility] Start: 11-28-2022 COVID-19 Vaccine ( season) COVID-19 Vaccine ( season) [facility] Start: 11-25-2022 Wound care [facility] Start: 11-24-2022 Patient discharge [facility] Start: 11-23-2022 Removal of urinary catheter [facility] Start: 11-22-2022 Referral to service [facility] Start: 11-22-2022 [facility] Start: 11-22-2022 Consultation for treatment [facility] Start: 11-21-2022 Admission procedure [facility] Start: 11-21-2022 Application of intermittent pneumatic compression device [facility] Start: 11-21-2022 Following clinical pathway protocol [facility] Start: 11-21-2022 Measuring intake and output [facility] Start: 11-21-2022 Elevation of head of bed [facility] Start: 11-21-2022 Admission procedure [facility] Start: 11-21-2022 [facility] Start: 06-18-2022 Colonoscopy w/biopsy single/multiple COLONOSCOPY AND BIOPSY [facility] Start: 06-18-2022 Patient discharge [facility] Start: 05-02-2022 [facility] Start: 04-30-2022 Patient discharge [facility] Start: 04-29-2022 Wound care [facility] Start: 04-29-2022 Application of intermittent pneumatic compression device [facility] Start: 04-29-2022 Consultation for treatment [facility] Start: 04-29-2022 [facility] Start: 04-28-2022 Following clinical pathway protocol [facility] Start: 04-28-2022 Referral to general surgeon [facility] Start: 04-28-2022 Referral to service [facility] Start: 04-28-2022 Admission procedure [facility] Start: 04-28-2022 Assessment of risk of venous thromboembolism [facility] Start: 04-28-2022 Bedrest [facility] Start: 04-28-2022 Incentive spirometry [facility] Start: 04-28-2022 Measuring intake and output [facility] Start: 04-28-2022 Taking patient vital signs [facility] Start: 04-28-2022 Verification routine [facility] Start: 04-28-2022 Anesthesia on bony pelvis ANESTH PELVIS SURGERY [facility] Start: 04-28-2022 Exc ischial pr ulcer w/ostc musc/myoq flap/skin REMOVE HIP PRESSURE SORE [facility] Start: 04-28-2022 Patient referral to dietitian [facility] Start: 02-08-2022 Referral for further care [facility] Start: 2016 RSV Immunization aged 60 or older (1 - 1-dose 60+ series) RSV Immunization aged 60 or older (1 - 1-dose 60+ series) [facility] Start: 2016 RSV Immunization for Adults (1 - Risk 60-74 years 1-dose series) RSV Immunization for Adults (1 - Risk 60-74 years 1-dose series) [facility] Start: 03-17-2015 Pneumococcal Vaccine: 50+ Years (2 of 2 - PPSV23) Pneumococcal Vaccine: 50+ Years (2 of 2 - PPSV23) [facility] Start: 03-17-2015 Pneumococcal Vaccine: 65+ Years (2 of 2 - PPSV23 or PCV20) Pneumococcal Vaccine: 65+ Years (2 of 2 - PPSV23 or PCV20) [facility] Start: 2006 Zoster Vaccines (1 of 2) Zoster Vaccines (1 of 2) [facility] Start: 08-17-1975 DTaP/Tdap/Td Vaccines (1 - Tdap) DTaP/Tdap/Td Vaccines (1 - Tdap) [facility] Start: 1974 Diabetes mellitus screening Diabetes Screening [facility] Start: 1974 Hepatitis C screening Hepatitis C Screening [facility] Start: 1968 Depression Screening Depression Screening [facility] Start: 1956 Lipid panel Lipid Panel [facility] Start: 1956 Screening for malignant neoplasm of colon [facility] Start: 1956 Thyroid stimulating hormone measurement TSH Level [facility] Anaerobic Culture Anaerobic Culture [facility] Anaerobic microbial culture Anaerobic Cul ture [facility] Bacteria identified in Unspecified specimen by Anaerobe culture [facility] Cardiac event recording [facility] Electrocardiographic procedure [facility] Microbial culture, routine Wound Culture [facility] Microbial culture, routine Wound Culture [facility] MR Thoracic spine [facility] Patient Education [facility] Work Phone: Patient referral [facility] Work Phone: Urine culture [facility] Immunizations Immunization Date Immunization Notes Care Provider [facility] 01-23-2023 influenza, injectabl e, quadrivalent, preservative free Cristy GONZALEZ Work Phone: [facility] 01-23-2023 influenza virus vaccine, unspecified formulation Rikki Casas MD Work Phone: [facility] 01-31-2022 Influenza High-Dose Quadrivalent Cristy GONZALEZ Work Phone: [facility] 01-31-2022 Influenza, high dose seasonal Cristy GONZALEZ Work Phone: [facility] 01-31-2022 influenza, high dose seasonal, preservative-free [employer] Kemi Armiro [employer] Work Phone: [facility] 01-22-2022 Covid Moderna Bivale nt Booster Cristy Bearden PA Work Phone: [facility] 09-11-2020 Covid (Moderna) [employer] Kemi Ramiro [employer] Work Phone: [facility] 08-14-2020 Covid (Moderna) [employer] Kemi Ramiro [employer] Work Phone: [facility] 04-07-2020 influenza, injectabl e, quadrivalent, preservative free [employer] Kemi Ramiro [employer] Work Phone: [facility] 04-07-2020 influenza, seasonal, injectable [employer] Kemi Ramiro [employer] Work Phone: [facility] 04-07-2020 Seasonal, quadrivale nt, recombinant, injectable influenza vaccine, preservative free Cristy Bearden PA Work Phone: [facility] 02-02-2019 influenza, injectabl e, quadrivalent, preservative free [employer] Kemi Ramiro [employer] Work Phone: [facility] 02-02-2019 influenza, seasonal, injectable [employer] Kemi Ramiro [employer] Work Phone: [facility] 04-04-2018 Influenza, injectabl e, Madin Gissel Canine Kidney, preservative free, quadrivalent [employer] Kemi Ramiro [employer] Work Phone: [facility] Payers Date Payer Category Payer Private Health Insurance [id number] 2023 Self-pay [id number] 2023 [employer] - O RENETTA DECKER 1.2.840.546747.1.13.680.2. [id number] 2023 Unknown ANTHEM BLUE CROS S ANTHEM BLUE CROSS [id number] 2023-Present [address] Commercial 1.2.840.331129.1.13.680.2. 7.3.667769.315 2023 Unknown [id number] 1986 Medicare 1.2.840.286860. 1.13.680.2. 7.3.457348.315 1986 Medicare [id number] 1955 Unknown [id number] .840.1.158622.3.579.2. 278 Unknown [id number] .840.1.317489.3.579.2. 462 Unknown [id number] .840.1.925348.3.579.2. 462 Unknown [id number] .840.1.690982.3.579.2. 462 Unknown [id number] .840.1.798925.3.579.2. 462 Unknown [id number] 2.840.1.046215.3.579.2. 462 Unknown [id number] 2.16840.1.234718.3.579.2. 462 Unknown [id number] 2.840.1.896319.3.579.2. 462 Unknown [id number] .840.1.727368.3.579.2. 462 Unknown [id number] 2.16.840.1.840513.3.579.2. 462 Unknown [id number] 2.16.840.1.436152.3.579.2. 462 Unknown [id number] 2.16.840.1.849964.3.579.2. 462 Unknown [id number] 2.16840.1.821461.3.579.2. 462 Unknown [id number] 2.16.840.1.171167.3.579.2. 462 Unknown [id number] 2.16840.1.448514.3.579.2. 462 Unknown [id number] 2.840.1.760846.3.579.2. 462 Unknown [id number] 2.840.1.417782.3.579.2. 462 Unknown [id number] 2.840.1.713627.3.579.2. 462 Unknown [id number] 2.840.1.268800.3.579.2. 462 Unknown [id number] 2.840.1.977052.3.579.2. 462 Unknown [id number] 2.840.1.135625.3.579.2. 462 Unknown [id number] 2.840.1.416857.3.579.2. 462 Unknown [id number] 2.16840.1.468107.3.579.2. 462 Unknown [id number] 2.16840.1.871785.3.579.2. 462 Unknown [id number] 2.16840.1.656784.3.579.2. 462 Unknown [id number] 2.16840.1.139927.3.579.2. 462 Unknown [id number] 2.16840.1.647996.3.579.2. 462 Unknown [id number] 2.16.840.1.702230.3.579.2. 462 Unknown [id number] 2.16.840.1.791536.3.579.2. 462 Unknown [id number] 2.16.840.1.835355.3.579.2. 462 Unknown [id number] 2.16.840.1.198089.3.579.2. 462 Unknown [id number] 2.16.840.1.533136.3.579.2. 462 Unknown [id number] 2.16.840.1.336683.3.579.2. 462 Unknown [id number] 2.16840.1.922548.3.579.2. 462 Unknown [id number] 2.840.1.843552.3.579.2. 462 Unknown [id number] 2.840.1.117107.3.579.2. 462 Unknown [id number] 2.16.840.1.621981.3.579.2. 462 Unknown [id number] 2.16.840.1.631112.3.579.2. 462 Unknown [id number] 2.16.840.1.568639.3.579.2. 462 Unknown [id number] 2.16.840.1.039623.3.579.2. 462 Unknown [id number] 2.16840.1.644408.3.579.2. 462 Unknown [id number] 2.16.840.1.239658.3.579.2. 462 Unknown [id number] 2.16.840.1.709169.3.579.2. 462 Unknown [id number] 2.16.840.1.002208.3.579.2. 462 Unknown [id number] 2.16.840.1.300794.3.579.2. 462 Unknown [id number] 2.16.840.1.337373.3.579.2. 462 Unknown [id number] 2.16.840.1.549520.3.579.2. 462 Unknown [id number] 2.16.840.1.728627.3.579.2. 462 Unknown [id number] 2.16.840.1.821440.3.579.2. 462 Unknown [id number] 2.16.840.1.142269.3.579.2. 462 Unknown [id number] 2.16.840.1.558924.3.579.2. 462 Unknown [id number] 2.16.840.1.450183.3.579.2. 462 Unknown [id number] 2.16.840.1.966621.3.579.2. 462 Social History Date Type Detail Facility Start: 02-08-2022 End: 07-02-2023 Tobacco smoking status WVIS Unknown if ever smoked [facility] Start: 1955 Sex Assigned At Male [facility] Start: 1955 Sex Assigned At Not on file [facility] Gender identity Not on file [facility] Start: 10-28-2021 End: 08-02-2024 Sex Male (finding) [facility] Start: 06-09-2024 End: 08-07-2024 Tobacco smoking status NHIS Ex-smoker (finding) [facility] Medical Equipment Procedure Code Equipment Code Equipment Origin al Text Equipment Identifier Dates Laparoscopic creation of end colostomy [id number] FDA Start: 11-21-2022 Laparoscopic creation of end colostomy [id number] FDA Start: 11-21-2022 Goals Date Patient Goal Desired Activity /State Functional Status Date Assessment Result Facility 08-01-2024 Functional status Bedrest [facility] Work Phone: 06-12-2024 [facility] Work Phone: 11-24-2022 [facility] Work Phone: 04-30-2022 Functional status Ambulates;Assist with U rinal [facility] Work Phone: 04-30-2022 Functional status Assistive Devices Wheel chair [facility] Work Phone: 04-29-2022 Functional status Bedrest [facility] Work Phone: Mental Status Date Assessment Result Facility 08-07-2024 Cognitive function Awake;Alert;Appropriat e [facility] Work Phone: 08-02-2024 Cognitive function Awake;Alert;A ppropriate;Follow s Commands [facility] Work Phone: 08-01-2024 Cognitive function Cooperative [facility] Work Phone: 08-01-2024 Cognitive function Voice/Name [facility] Work Phone: 06-12-2024 Cognitive function Voice/Name [facility] Work Phone: 11-24-2022 Cognitive function Voice/Name [facility] Work Phone: 06-18-2022 Cognitive function Voice/Name [facility] Work Phone: 06-18-2022 Cognitive function Patient Orien tation Person;Place;Time [facility] Work Phone: 04-30-2022 Cognitive function Voice/Name [facility] Work Phone: 04-29-2022 Cognitive function Level Of Cons ciousness Awake;Alert;Appropriate;Follow s Commands [facility] Work Phone: 04-29-2022 Cognitive function Voice/Name [facility] Work Phone: Clinical Notes 05-26-2020 to 08-29-2024 Note Date & Type Note Facility 08-29-2024 Progress note Note Date/Time August 29, 2024 6:25p m [facility] [address] [place] [address] Progress Note - Wound Care 08/29/24 1820 MR#: [id number] Acct: [id number] Name: JORGE COVINGTON Rep #:[id number] : 1955 69 From: Luca Nayak MD PCP: Dr. Nathanael Cardona MD Status:RE G RCR Location: History of Present Illness Date of Service: 08/29/24 Chief Complaint: Right ischial pressure sore, Stage IV. History of Wound: This is a 68-year-old white male who presented to the wound healing center with complaints of pressure ulcer to right buttock area with extension to the right ischial bone. This started in October,. Patient's was treating with OTC creams and keeping area clean. The ulcer starting increasing in size and went to the Emergency Department on 02/08/22. CT showed subcutaneous and deep soft tissue involvement and possible early abscess formation. The bone was not addressed. The patient has very limited mobility as a result of a prior spine injury/surgery. He utilizes a wheelchair at all times. He has not been using his billy lift at home to transfer but has been using a board to slide himself from his bed to chair at home. He sits in his wheelchair almost all day, not really able to change positions. They finally obtained a low air loss overlay totheir regular mattress at home. A roho cushion was ordered for his wheelchair. Patient is a former smoker, he quit early 2023. Surgery 04/28/22 - Excision right ischial pressure sore, Stage IV, with partial ostectomy for osteomyelitis. Size of wound 8 x 7 x 4.5 cm. Operative tissue cultures positive for MSSA and Cutibacterium acnes. Bone cultures positive for MSSA and Corynebacterium striatum. He is being treated with Augmentin. Pathology from surgery 04/28/22 showed chronic reparative and reactive change. No evidence of acute osteomyelitis. He had a diverting colostomy placed on 11/21/[address] Romero. Surgery 08/26/23 - Excision recurrent right ischial pressure sore, Stage IV, withpartial ostectomy for osteomyelitis. Discharged home on 08/27/23. Pathology right ischial pressure sore soft tissue showed focal ulceration, acuteand chronic inflammation an granulation tissue reaction. Right ischial bone, partial ostectomy showed fragments of bone with chronic inflammation and reactive changes, negative for acute osteomyelitis. Operative soft tissue cultures from 08/26/23 positive for Serratia marcescens, Staphylococcus capitis, and Corynebacterium striatum. Operative bone cultures from 08/26/23 positive for Serratia marcescens and Corynebacterium striatum. He was started on Levaquin and Doxycycline until he can be seen by ID on 11/04/23. Subjective Subjective Patient has been in and out of the hospital for urinary tract infections. He iscurrently being prescribed Macrobid nightly for prophylaxis. Stable per 's report. Objective Data Objective Data Vital Signs: Vital Signs Temp Pulse Resp BP O2 Del Method 97.7 F L 78 18 192/116 H Room Air 08/29/24 14:52 08/29/24 14:52 08/29/24 14:52 08/29/24 14:52 08/29/24 14:52 Oxygen Delivery Method Room Air Weight: 222 lb 3.615 oz Body Mass Index (BMI) 35.5 Charges/Coding Visit Charges Office Visits / Consults: 21590 OV L3 Est 20min Physical Exam Narrative Persistent right ischial wound Measured 4 x 3 cm and 3 cm deep (down to muscle). No exposed bone at the base, all granulated. No fluid collections. Surroundingskin appears healthy Const alert and oriented x3 General Appearance: cooperative Resp normal respiratory effort GI GI Narrative: Diverting ostomy is present and is productive Debridement Note Debridement Note No debridement was completed: No debridement was completed today Post-Debridement Measurements and Additional Note: Post-Debridement Measurements/Treatment - Nurse 1 - General Ulcer Assessment Start: 08/29/24 14:49 Freq: Status: Active Protocol: WC.LOWEXT Activity Type Activity Date Activity User E-sign Co-sign Detail Recorded Client Recorded Date Recorded By Document 08/29/24 14:52 [email or web address] [id number] 08/29/24 15:02 KW 08/29/24 14:52 Height and Weight Body Mass Index (BMI) 35.5 BMI Classification Obese Vital Signs Temperature (97.8 F-99.1 F) 97.7 F L Temperature Source Temporal Pulse Rate (60-100) 78 Pulse Location Monitor Respiratory Rate (12-18) 18 Respiratory rate source Observation Oxygen Delivery Method Room Air Blood Pressure (90/60-120/80) 192/116 H Blood Pressure Mean (mm Hg) 141 Source Monitor Position Sitting Blood Pressure Location Left Arm History Since Last Visit- (Skip if this is Patient's initial visit) Have you changed medications since your No last visit? Any new allergies or adverse reactions No Had a fall/change in ADL's that may No increase risk of falls Signs or symptoms of abuse and/or No neglect since last visit Have you been in the hospital since your Yes last visit? Has dressing in place as prescribed Yes Has compression in place as prescribed N/A Has offloadiing in place as prescribed N/A Experienced any changes in pain level or No management Left Footwear Regular Shoe Right Footwear Regular Shoe Pain Scale: 0-10 Numeric Is Patient Pain Free? Yes WC - Nurse 1 - General Ulcer Measurement Start: 08/29/24 14:49 Freq: Status: Active Protocol: Activity Type Activity Date Activity User E-sign Co-sign Detail Recorded Client Recorded Date Recorded By Document 08/29/24 14:52 [id number] 08/29/24 15:02 08/29/24 14:52 Wound Center Nurse 1 #5- R ischium Post op -Current Size (cm) - Length 4 -Current Size (cm) - Width 4.5 -Current Size (cm) - Depth 3.8 -Total Square Cm 18.0 -Tunneling Yes -Tunneling Position (O'clock) 1 -Tunneling Distance (cm) 5.5 -Exudate Amt Large -Exudate Type Serosanguineous -Wound Margin Distinct, Outline Attached -Granulation Amt Large (67-100%) -Granulation Quality Red -Texture (Michelle-wound Skin Appearance) Assessed -Moisture (Michelle-wound Skin Appearance) Maceration -Color (Michelle-wound Skin Appearance) Assessed, Erythema -Temperature (Michelle-wound Skin No Abnormality Appearance) (Pt Warm) -Tenderness on Palpation (Michelle-wound No Skin Appearance) -Ulcer Cleansing Soap and Water -Foul Odor after Cleansing No -Anesthetic Used 4% Lidocaine Solution WC - Nurse 2 - General Ulcer CM Notes Start: 08/29/24 14:49 Freq: Status: Active Protocol: Activity Type Activity Date Activity User E-sign Co-sign Detail Recorded Client Recorded Date Recorded By Document 08/29/24 15:30 [id number] [id number] 08/29/24 15:31 JF 08/29/24 15:30 Wound Center Nurse 2 -Correct Patient Yes -Correct Side, Site, Position No -Correct Procedure No -Procedure Performed No -Wound/Ulcer Outcome Not Healed Pain Scale: 0-10 Numeric Is Patient Pain Free? Yes - Nurse 3 - General Ulcer D/C NN Start: 08/29/24 14:49 Freq: Status: Active Protocol: Activity Type Activity Date Activity User E-sign Co-sign Detail Recorded Client Recorded Date Recorded By Document 08/29/24 15:40 [id number] 08/29/24 15:42 [email or web address] 08/29/24 15:40 Wound Care Center Nurse 3 #5- R ischium Post op -Ulcer Cleansing Rinsed/ Irrigated with Saline -Foul Odor after Cleansing No -Other Dressing Saline gauze sl moistened -Other Covering ABD -Wound Comment(s) May alternate with Dakins, discussed with family. Dressing applied per K. Elder today. Treatment Response Procedure Tolerated Well Pain Scale: 0-10 Numeric Is Patient Pain Free? Yes - Visit Discharge Discharge Condition Stable Ambulatory Status Wheelchair Facility Type Home Health Orders Sent Yes Assessment/Plan Assessment/Plan (1) Right ischial pressure sore: CODE(S): L89.319 - Pressure ulcer of right buttock, unspecified stage (2) Right ischial pressure sore, stage 4: CODE(S): L89.314 - Pressure ulcer of right buttock, stage 4 PLAN: Wound care -saline moistened gauze packed into the ulcer twice daily and prn covered with ABD or gauze. Wash the ulcer and michelle wound with soap and water at the time of the dressing change. His has been working on getting the [facility] records about his spine surgery and his prognosis. She states that she was told it was sent and received but nobody in the hospital system has been able to locate his chart. We will continue to try to get these records. Encouraged increased protein intake to help with wound healing. Waiting to hear from the [employer] to see if they can assist them financially for a new low air loss mattress. PLAN FROM 21 Mar 2024: I would like to try the VAC again. Patient and reluctant 2/2 problems with it in the past being so close to gluteal crease/perineum. For now, agree with continued Dakins. We talked about practicality of flap reconstruction and risks/benefits, and they're unsure of the benefit, especially if risks of failure/need for further wound care are so high and they're required to have strict and uncomfortable positioning restrictions. F/u and re-address in 2 weeks. 04 Apr 2024: would not like to do wound vac. Reports that it causes too many problems with leaking, ect. They're going to consider options for reconstruction, but areconcerned about post-operative rehab and pressure offloading (practicality of not being able to be in a wheelchair). Mrs. Covington is going to call me and discuss further after she and her have discussed more. PLAN FROM 02 May 2024: After thorough discussion of options for potential reconstruction, and Mrs. Covington would like to defer reconstruction at this time and continue local woundcare regimen. Follow-up in 2 weeks for wound check. Continue current regimen. Plan from 30 May 2024: Making improvements with dressings. Continue offloading and the Dakins WTD. O.K. for monthly wound checks (challenge for the family to come more often than this, and wound is open and healthy). Plan to continue to promote granulation (has granulated over bone with current regimen). PLAN FROM 27 June 2024: Wound check today demonstrated healthy granulating wound without any signs of fluid collection or other signs of infection. I believe that the Dakin's wet-to-dry is the best dressing at this point to maintain a healthy wound. Theywould like to follow-up in 1 month which I think is reasonable for just a wound check. Plan from 26 July 2024: Continue Dakin's wet-to-dry dressings twice daily. Patient's happy with that plan. Deferred debridement today as wound really healthy. Follow-up in 1 month for a wound check Plan from 29 August 2024: Continue saline wet-to-dry dressings twice daily. No signs of infection today in the wound. Patient and his happy with coming for wound checks every several weeks. Plan to follow-up in 5 weeks. They are not interested in reconstruction at this time, and he would be a poor candidate given his overall health status and inability to pressure offload. 08/29/24 5615 <Electronically signed by Luca Nayak MD> Cosigner Signature (if applicable): CC: ~ Signed [facility] Work Phone: [phone]) 340-181805-11-2025 Discharge [address] [facility] Medical Records Department [address] [place] [address] Emergency Department Summary 08/07/24 MR#: [id number] Acct: [id number] Name: JORGE COVINGTON Rep #:[id number] : 1955 68 From: Kit Harris MD PCP: Dr. Nathanael Cardona MD Status:RE G ER Location: ED HPI History of Present Illness Chief Complaint: General Illness Informant: patient, family and EMS Narrative Narrative: 68-year-old male brought by family because of hallucinations since yesterday. Intermittent. Family states he has been insightful into it, and realized he wasincorrect these couple times. He recently was admitted to the hospital for urinary infection, he has an indwelling suprapubic catheter as wellas a diverting colostomy because of sacral wounds, and a history of severe weakness of his legs dueto muscle atrophy due to a remote trauma/accident. He is usually able to pull himself up and stand/walk, but since being home for the last 5 days and just finishing antibiotics, he has been too weak to do so and has remained basically in bed. No other new symptoms. No cough or shortness ofbreath, ab dominal pain, vomiting, fevers, headache, focal neurologic deficits. [facility] Medical History Fusion of spine, cervical region Thoracic myelopathy Cervical myelopathy Colostomy in place Wheelchair dependent Constipation Spinal cord injury Tobacco abuse Hypothyroidism Hyperlipidemia COPD (chronic obstructive pulmonary disease) Other acute postprocedural pain Paraplegic spinal paralysis History of pressure ulcer Wears glasses Thyroid disease Arthritis Uses wheelchair High cholesterol Gastric reflux COPD (chronic obstructive pulmonary disease) Hx of fracture of arm Hx of head injury Bedridden Smoker Right ischial pressure sore, stage 4 Home Medications ?Medication ?Instructions ?Recorded ?Last Taken ?Type levothyroxine 125 mcg tablet 125 mcg PO DAILY THYROID 12/17/17 08/02/24 History tamsulosin 0.4 mg capsule 0.4 mg PO BID PROSTATE 12/1708/02/24 History icosapent ethyl 1 gram capsule 2 g PO BIDCM cholestero l 02/08/22 08/02/24 History (Vascepa) acetaminophen 650 mg 1,300 mg PO Q8H PRN Pain Unknown History tablet,extended release levofloxacin 750 mg tablet 750 mg PO DAILY #6 tabs 08/2108/02/24 Rx omeprazole 40 mg capsule,delayed 40 mg PO DAILY 08/02/24 History release baclofen 20 mg tablet 20 mg PO TID PRN 08/07/24 Un known History meclizine 25 mg tablet 25 mg PO TID PRN dizziness # 20 tabs 08/07/24 Unknown Rx Allergy/AdvReac Type Severity Reaction Status Date / Time Environmental Allergies: Allergy NEEDS Verified 07/29/24 19:17 Uncoded (dust) FOLLOW-UP house dust Allergy Other Verified 07/29/24 19:17 pollen extracts Allergy NEEDS Verified 07/29/24 19:17 FOLLOW-UP Family History Mother CVA (cerebral vascular accident) Hypertension Father Hypertension Prostate CA Surgical History S/P colostomy History of back surgery Hx of neck surgery Hx of spinal surgery Social History household members: spouse Smoking Status: Former smoker alcohol intake: never substance use type: does not use ROS ROS ED Constitutional Constitutional ED: Denies chills or fever(s) Eyes Eyes: Denies change in vision or diplopia ENT ENT ED: Denies rhinorrhea or sore throat Cardiovascular Cardiovascular: Denies chest pain or palpitations Respiratory/Chest Respiratory/Chest: Denies cough or dyspnea Gastrointestinal Gastrointestinal: Denies abdominal pain, hematochezia, melena, nausea or vomiting Genitourinary Genitourinary ED: Denies dysuria or hematuria Musculoskeletal Musculoskeletal: Denies back pain or neck pain Integumentary Denies abscess or rash Neurologic Neurologic: Reports as per HPI, confusion and weakness; Denies headache(s) or paresthesias Psychiatric Psychiatric: Reports hallucinations; Denies suicidal thoughts EXAM Physical Exam Const Vital Signs: 08/07/24 17:50 08/07/24 17:53 08/07/24 19:42 Temperature 97.8 F Temperature Source Oral Pulse Rate 77 76 Respiratory Rate 18 20 H Respiratory Effort Normal Respiratory Pattern Normal Blood Pressure 140/68 H 118/65 Blood Pressure Mean 92 82 Pulse Ox 94 94 Oxygen Delivery Method Room Air Room Air Positive well nourished and well developed General Appearance ED: well developed and NAD HEENT Reports moist mucous membranes normocephalic and atraumatic Eyes PERRL and EOMs intact bilaterally Neck full ROM and supple Resp normal respiratory effort and clear to auscultation bilaterally Cardio regular rate, regular rhythm and no murmurs GI non-tender and non-distended Auscultation: normoactive bowel sounds Palpation: soft Back/Spine no CVA tenderness General Back: other FROM Extremity normal to inspection General Extremety ED: Negative for edema, pulses abnormal or tenderness General Extremity: Negative for edema or pulses abnormal Neuro oriented x3, CN's II-XII intact bilaterally and no sensory deficits noted Neuro Narrative: Weakness in legs, the right is weaker than the left but he is able to move them both Sensorium / Orientation: awake and alert Skin no rashes or lesions noted MDM MDM MDM Narrative Medical decision making narrative: Infectious, cardiopulmonary, embolic workup obtained in addition to a CT of the head to evaluate for acute TURNING LATHE [employer]ER etiologies of his intermittent hallucinations. Ireviewed those images, and I agree with the report which is negative for any acute. In addition is 1 view chest x-ray is negative for acute pneumonia on my interpretation radiology in agreement there as well. His urine looks clean as it showed since he just finished Levaquin, 2 sequential troponin measurements are within normal limits anddecreasing, he has no significant leukocytosis or metabolic derangement except he was a little prerenal. states she is constantly having him drink fluids and his Benson bag is constantly full of r ightyellow transparent urine, and although we did give him a liter of fluid just in case, his vitalsigns remain normal and he does not have symptoms or findings ofcongestive heart failure to explainhis mild prerenal azotemia. Although his creatinine is just barely higher than normal for him, I donot think is high enough to require admission to the hospital. On reevaluation, he has a chronic wound on his right buttock/hip, so we evaluated that and looks very clean, well cared for, statesmargarita has been watching it and has been looking good she changes the dressings, they have home healthand they go to wound care regularly. He is scheduled to see his PCP in 3 days and follow-up for thehospital visit. The patient tells me that a little while ago he was feeling vertiginous/spinning sensation but it is gone now. He confirms that he has beenhaving episodes of that in the last couple days. This is the first he tells me of it. May be related to his hallucinations I see no other evidence of acute organic disease, and given all the care he has at home, I am comfortable with discharging him and the is comfortable with that as well. I am prescribinghim meclizine to use as needed in the meantime until they follow-up with her PCP. History & Record Review Additional record(s) reviewed:: Other (Recent urine culture, sensitive to levofloxacin and recent parenteral antibiotics) Lab Data Attestation: I reviewed the patient's lab results. Labs: Laboratory Results - last 24 hr 08/07/24 08/07/24 08/07/24 18:07 19:10 20:01 WBC 9.6 RBC 3.95 L Hgb 11.4 L Hct 35.4 L MCV 89.6 MCH 28.9 MCHC 32.2 RDW Std Deviation 55.9 H RDW Coeff of Josue 16.8 H Plt Count 331 MPV 10.1 Immature Gran % (Auto) 1.700 H Neut % (Auto) 65.8 Lymph % (Auto) 17.9 L [place] % (Auto) 9.5 Eos % (Auto) 4.2 Baso % (Auto) 0.9 Absolute Neuts (auto) 6.3 Absolute Lymphs (auto) 1.72 Nucleated RBC % 0 Sodium 142 Potassium 3.6 Chloride 106 Carbon Dioxide 26.0 Anion Gap 10 BUN 20 H Creatinine 1.33 H Estim Creat Clear Calc 59.92 Est GFR (MDRD) Non-Af 59 L BUN/Creatinine Ratio 14.8 Glucose 139 H Calcium 9.2 Total Bilirubin < 0.15 AST 12 ALT 21 Alkaline Phosphatase 109 Troponin T High Sens 22 Troponin T Hi Sens 2 Hr 21 Total Protein 6.8 Albumin 3.1 L Globulin 3.7 Albumin/Globulin Ratio 0.8 L Urine Color Yellow Urine Clarity Clear Urine pH 6.5 Ur Specific [place] 1.010 Urine Protein 15 H Urine Glucose (UA) Normal Urine Ketones Negative Urine Occult Blood 10 H Urine Nitrite Negative Urine Bilirubin Negative Urine Urobilinogen Normal Ur Leukocyte Esterase 25 H Urine RBC 0 SEEN Urine WBC 0-5 SEEN Ur Squamous Epith Cells 0 SEEN Urine Bacteria 0 SEEN Urine Mucus 0 SEEN Radiography Diagnostic Testing: Clinical Impression(s) from Imaging Studies Chest X-Ray 08/07/24 18:30 IMPRESSION: No Acute Findings. Reading Location: [facility] Brain CT 08/07/24 18:31 IMPRESSION: No acute intracranial abnormality. Chronic microvascular ischemic and involutional changes. Other chronic findings as described above. Reading Location: [facility] Rhythm Strip Rhythm Strip: Sinus Rhythm Rate: 70 Ectopy: None EKG Initial EKG: Attestation: I personally reviewed and interpreted this EKG as follows: Interpretation: Sinus Rhythm and No Acute Injury Pattern Comments: Nml axis & intervals; nml EKG Discharge Plan Triage Chief Complaint: General Illness ED Provider: Kit Harris Dx/Rx/DC Orders Clinical Impression: Hallucinations, unspecified, Right ischial pressure sore, stage 4, Vertigo, intermittent, Debility Instructions: Vertigo Inner Ear Problems Prescriptions: New meclizine 25 mg tablet 25 mg PO TID PRN (Reason: dizziness) Qty: 20 0RF No Action tamsulosin 0.4 MG capsule 0.4 mg PO BID levothyroxine 125 MCG tablet 125 mcg PO DAILY icosapent ethyl [Vascepa] 1 gram Capsule 2 g PO BIDCM acetaminophen 650 mg Tablet Extended Release 1,300 mg PO Q8H PRN (Reason: Pain) levofloxacin 750 mg tablet 750 mg PO DAILY Qty: 6 0RF Patient Comments: START DATE 08/01/24 baclofen 20 mg tablet 20 mg PO TID PRN omeprazole 40 mg capsule,delayed release(DR/EC) 40 mg PO DAILY Primary Care Provider: Nathanael Cardona Referrals: Nathanael Cardona MD [Primary Care Provider] - Keep [facility] appointment Print Language: Yoruba Disposition Disposition: Home, Self Care What to do if you have Problems For any increased pain, shortness of breath, bleeding, nausea or vomiting, chestpain, or any unexpected problems, contact your Primary Care Provider. Call [facility] ([phone]) or report tothe closest Emergency Room. Call 911 if necessary. 08/07/242058 Cosigner Signature (if applicable): CC: Dr. Nathanael Cardona MD ~ Signed [facility]05-11-2025 Radiology Diagnostic study note [facility] Imaging Services [address] [place] [address] Chest 1 View (Portable) MR#: [id number] Acct: [id number] Name: JORGE COVINGTON Rep #: [id number] : 1955 M 68 From: Joy Aldana MD PCP: Dr. Nathanael Cardona MD Status: RE G ER Study:Chest 1 View (Portable) Date of Exam: 08/07/24 Exam# [id number] Ordering Dr: Ramsey Harris MD PROCEDURE: CHEST 1 VIEW (PORTABLE) 08/07/2024 REASON FOR EXAM: SOB TECHNIQUE: Frontal view of the chest. COMPARISON: 08/02/2024 FINDINGS: Hardware: None Heart: Heart size is mildly enlarged. Lungs: Mild bibasilar atelectasis. No focal consolidation. No pneumothorax. No pleural effusion. Bones: Status post ACDF. Other: RAD/Chest 1 View (Portable) IMPRESSION: No Acute Findings. Reading Location: [facility] CC: Dr. Kit Harris MD; Dr. Nathanael Cardona MD ~ Project Manager/Design Manager: Signed [facility]05-11-2025 Radiology Diagnostic study note [facility] Imaging Services [address] [place] [address] Brain/Head without Contrast MR#: [id number] Acct: [id number] Name: JORGE COVINGTON Rep #: [id number] : 1955 M 68 From: Joy Aldana MD PCP: Dr. Nathanael Cardona MD Status: RE G ER Study:Brain/Head without Contrast Date of Exa m: 08/07/24 Exam# [id number] Ordering Dr: Ramsey Harris MD PROCEDURE: BRAIN/HEAD WITHOUT CONTRAST 08/07/2024 REASON FOR EXAM: ALTERED MENTAL STATUS TECHNIQUE: Head CT without intravenous contrast. Coronal and Sagittal reconstruction serieswere provided. One or more dose reduction techniques were used (e.g., Automated exposure control, adjustment of the mA and/or kV according to patient size, use of iterative reconstruction technique. COMPARISON: CT brain 05/02/2022 FINDINGS: Postoperative changes right frontotemporal craniotomy. Encephalomalacia right temporal lobe, likelyfrom prior insult. No acute intracranial hemorrhage, mass, mass effect, midline shift or pathologicextra-axial fluid collection. Mild parenchymal atrophy with commensurate increase in CSF containing spaces. Patchy white matter hypodensities, patient demographics favor chronic microvascular ischemic changes. Mild paranasal sinus mucosal thickening. Status post right canal wall up mastoidectomy. Small left mastoid effusions. Stable appearance left frontal calvarial fracture, extending through the left frontal sinus. CT/Brain/Head without Contrast IMPRESSION: No acute intracranial abnormality. Chronic microvascular ischemic and involutional changes. Other chronic findings as described above. Reading Location: [facility] CC: Dr. Kit Harris MD; Dr. Nathanael Cardona MD ~ Project Manager/Design Manager: Signed [facility]05-11-2025 Discharge summary Author Kit Harris [facility] Note Date/Time August 07, 2024 8:59p m [facility] Medical Records Department [address] [place] [address] Emergency Department Summary 08/07/24 MR#: [id number] Acct: [id number] Name: JORGE COVINGTON Rep #:[id number] : 1955 68 From: Kit Harris MD PCP: Dr. Nathanael Cardona MD Status:LOU Alvarado ER Location: ED HPI History of Present Illness Chief Complaint: General Illness Informant: patient, family and EMS Narrative Narrative: 68-year-old male brought by family because of hallucinations since yesterday. Intermittent. Family states he has been insightful into it, and realized he wasincorrect these couple times. He recently was admitted to the hospital for urinary infection, he has an indwelling suprapubic catheter as well as a diverting colostomy because of sacral wounds, and a history of severe weakness of his legs due to muscle atrophy due to a remote trauma/accident. He is usually able to pull himself up and stand/walk, but since being home for the last 5 days and just finishing antibiotics, he has been too weak to do so and has remained basically in bed. No other new symptoms. No cough or shortness ofbreath, abdominal pain, vomiting, fevers, headache, focal neurologic deficits. [facility] Medical History Fusion of spine, cervical region Thoracic myelopathy Cervical myelopathy Colostomy in place Wheelchair dependent Constipation Spinal cord injury Tobacco abuse Hypothyroidism Hyperlipidemia COPD (chronic obstructive pulmonary disease) Other acute postprocedural pain Paraplegic spinal paralysis History of pressure ulcer Wears glasses Thyroid disease Arthritis Uses wheelchair High cholesterol Gastric reflux COPD (chronic obstructive pulmonary disease) Hx of fracture of arm Hx of head injury Bedridden Smoker Right ischial pressure sore, stage 4 Home Medications ?Medication ?Instructions ?Recorded ?Last Taken ?Type levothyroxine 125 mcg tablet 125 mcg PO DAILY THYROID 12/17/17 08/02/24 History tamsulosin 0.4 mg capsule 0.4 mg PO BID PROSTATE 12/1708/02/24 History icosapent ethyl 1 gram capsule 2 g PO BIDCM cholestero l 02/08/22 08/02/24 History (Vascepa) acetaminophen 650 mg 1,300 mg PO Q8H PRN Pain Unknown History tablet,extended release levofloxacin 750 mg tablet 750 mg PO DAILY #6 tabs 08/2108/02/24 Rx omeprazole 40 mg capsule,delayed 40 mg PO DAILY 08/02/24 History release baclofen 20 mg tablet 20 mg PO TID PRN 08/07/24 Un known History meclizine 25 mg tablet 25 mg PO TID PRN dizziness # 20 tabs 08/07/24 Unknown Rx Allergy/AdvReac Type Severity Reaction Status Date / Time Environmental Allergies: Allergy NEEDS Verified 07/29/24 19:17 Uncoded (dust) FOLLOW-UP house dust Allergy Other Verified 07/29/24 19:17 pollen extracts Allergy NEEDS Verified 07/29/24 19:17 FOLLOW-UP Family History Mother CVA (cerebral vascular accident) Hypertension Father Hypertension Prostate CA Surgical History S/P colostomy History of back surgery Hx of neck surgery Hx of spinal surgery Social History household members: spouse Smoking Status: Former smoker alcohol intake: never substance use type: does not use ROS ROS ED Constitutional Constitutional ED: Denies chills or fever(s) Eyes Eyes: Denies change in vision or diplopia ENT ENT ED: Denies rhinorrhea or sore throat Cardiovascular Cardiovascular: Denies chest pain or palpitations Respiratory/Chest Respiratory/Chest: Denies cough or dyspnea Gastrointestinal Gastrointestinal: Denies abdominal pain, hematochezia, melena, nausea or vomiting Genitourinary Genitourinary ED: Denies dysuria or hematuria Musculoskeletal Musculoskeletal: Denies back pain or neck pain Integumentary Denies abscess or rash Neurologic Neurologic: Reports as per HPI, confusion and weakness; Denies headache(s) or paresthesias Psychiatric Psychiatric: Reports hallucinations; Denies suicidal thoughts EXAM Physical Exam Const Vital Signs: 08/07/24 17:50 08/07/24 17:53 08/07/24 19:42 Temperature 97.8 F Temperature Source Oral Pulse Rate 77 76 Respiratory Rate 18 20 H Respiratory Effort Normal Respiratory Pattern Normal Blood Pressure 140/68 H 118/65 Blood Pressure Mean 92 82 Pulse Ox 94 94 Oxygen Delivery Method Room Air Room Air Positive well nourished and well developed General Appearance ED: well developed and NAD HEENT Reports moist mucous membranes normocephalic and atraumatic Eyes PERRL and EOMs intact bilaterally Neck full ROM and supple Resp normal respiratory effort and clear to auscultation bilaterally Cardio regular rate, regular rhythm and no murmurs GI non-tender and non-distended Auscultation: normoactive bowel sounds Palpation: soft Back/Spine no CVA tenderness General Back: other FROM Extremity normal to inspection General Extremety ED: Negative for edema, pulses abnormal or tenderness General Extremity: Negative for edema or pulses abnormal Neuro oriented x3, CN's II-XII intact bilaterally and no sensory deficits noted Neuro Narrative: Weakness in legs, the right is weaker than the left but he is able to move them both Sensorium / Orientation: awake and alert Skin no rashes or lesions noted MDM MDM MDM Narrative Medical decision making narrative: Infectious, cardiopulmonary, embolic workup obtained in addition to a CT of the head to evaluate for acute TURNING [employer]HE [employer]ER etiologies of his intermittent hallucinations. Ireviewed those images, and I agree with the report which is negative for any acute. In addition is 1 view chest x-ray is negative for acute pneumonia on my interpretation radiology in agreement there as well. His urine looks clean as it showed since he just finished Levaquin, 2 sequential troponin measurements are within normal limits and decreasing, he has no significant leukocytosis or metabolic derangement except he was a little prerenal. states she is constantly having him drink fluids and his Benson bag is constantly full of rightyellow transparent urine, and although we did give him a liter of fluid just in case, his vital signs remain normal and he does not have symptoms or findings ofcongestive heart failure to explain his mild prerenal azotemia. Although his creatinine is just barely higher than normal for him, I do not think is high enough to require admission to the hospital. On reevaluation, he has a chronic wound on his right buttock/hip, so we evaluated that and looks very clean, well cared for, states she has been watching it and has been looking good she changes the dressings, they have home health and they go to wound care regularly. He is scheduled to see his PCP in 3 days and follow-up for the hospital visit. The patient tells me that a little while ago he was feeling vertiginous/spinning sensation but it is gone now. He confirms that he has beenhaving episodes of that in the last couple days. This is the first he tells me of it. May be related to his hallucinations I see no other evidence of acute organic disease, and given all the care he has at home, I am comfortable with discharging him and the is comfortable with that as well. I am prescribinghim meclizine to use as needed in the meantime until they follow-up with her PCP. History & Record Review Additional record(s) reviewed:: Other (Recent urine culture, sensitive to levofloxacin and recent parenteral antibiotics) Lab Data Attestation: I reviewed the patient's lab results. Labs: Laboratory Results - last 24 hr 08/07/24 08/07/24 08/07/24 18:07 19:10 20:01 WBC 9.6 RBC 3.95 L Hgb 11.4 L Hct 35.4 L MCV 89.6 MCH 28.9 MCHC 32.2 RDW Std Deviation 55.9 H RDW Coeff of Josue 16.8 H Plt Count 331 MPV 10.1 Immature Gran % (Auto) 1.700 H Neut % (Auto) 65.8 Lymph % (Auto) 17.9 L [place] % (Auto) 9.5 Eos % (Auto) 4.2 Baso % (Auto) 0.9 Absolute Neuts (auto) 6.3 Absolute Lymphs (auto) 1.72 Nucleated RBC % 0 Sodium 142 Potassium 3.6 Chloride 106 Carbon Dioxide 26.0 Anion Gap 10 BUN 20 H Creatinine 1.33 H Estim Creat Clear Calc 59.92 Est GFR (MDRD) Non-Af 59 L BUN/Creatinine Ratio 14.8 Glucose 139 H Calcium 9.2 Total Bilirubin < 0.15 AST 12 ALT 21 Alkaline Phosphatase 109 Troponin T High Sens 22 Troponin T Hi Sens 2 Hr 21 Total Protein 6.8 Albumin 3.1 L Globulin 3.7 Albumin/Globulin Ratio 0.8 L Urine Color Yellow Urine Clarity Clear Urine pH 6.5 Ur Specific [place] 1.010 Urine Protein 15 H Urine Glucose (UA) Normal Urine Ketones Negative Urine Occult Blood 10 H Urine Nitrite Negative Urine Bilirubin Negative Urine Urobilinogen Normal Ur Leukocyte Esterase 25 H Urine RBC 0 SEEN Urine WBC 0-5 SEEN Ur Squamous Epith Cells 0 SEEN Urine Bacteria 0 SEEN Urine Mucus 0 SEEN Radiography Diagnostic Testing: Clinical Impression(s) from Imaging Studies Chest X-Ray 08/07/24 18:30 IMPRESSION: No Acute Findings. Reading Location: [facility] Brain CT 08/07/24 18:31 IMPRESSION: No acute intracranial abnormality. Chronic microvascular ischemic and involutional changes. Other chronic findings as described above. Reading Location: [facility] Rhythm Strip Rhythm Strip: Sinus Rhythm Rate: 70 Ectopy: None EKG Initial EKG: Attestation: I personally reviewed and interpreted this EKG as follows: Interpretation: Sinus Rhythm and No Acute Injury Pattern Comments: Nml axis & intervals; nml EKG Discharge Plan Triage Chief Complaint: General Illness ED Provider: Kit Harris Dx/Rx/DC Orders Clinical Impression: Hallucinations, unspecified, Right ischial pressure sore, stage 4, Vertigo, intermittent, Debility Instructions: Vertigo Inner Ear Problems Prescriptions: New meclizine 25 mg tablet 25 mg PO TID PRN (Reason: dizziness) Qty: 20 0RF No Action tamsulosin 0.4 MG capsule 0.4 mg PO BID levothyroxine 125 MCG tablet 125 mcg PO DAILY icosapent ethyl [Vascepa] 1 gram Capsule 2 g PO BIDCM acetaminophen 650 mg Tablet Extended Release 1,300 mg PO Q8H PRN (Reason: Pain) levofloxacin 750 mg tablet 750 mg PO DAILY Qty: 6 0RF Patient Comments: START DATE 08/01/24 baclofen 20 mg tablet 20 mg PO TID PRN omeprazole 40 mg capsule,delayed release(DR/EC) 40 mg PO DAILY Primary Care Provider: Nathanael Cardnoa Referrals: Nathanael Cardona MD [Primary Care Provider] - Keep [facility] appointment Print Language: Yoruba Disposition Disposition: Home, Self Care What to do if you have Problems For any increased pain, shortness of breath, bleeding, nausea or vomiting, chestpain, or any unexpected problems, contact your Primary Care Provider. Call [facility] ([phone]) or report to the closest Emergency Room. Call 911 if necessary. 08/07/242058 <Electronically signed by Kit Harris MD> Cosigner Signature (if applicable): CC: Dr. Nathanael Cardona MD ~ Signed [facility] Work Phone: [phone]) 316-741205-06-2025 Discharge summary Author Hebert Saavedra [facility] Note Date/Time August 02, 2024 12:54p m [facility] Medical Records Department [address] [place] [address] Emergency Department Summary 08/02/24 MR#: [id number] Acct: [id number] Name: JORGE COVINGTON #:[id number] : 1955 68 From: Hebert Saavedra MD PCP: Dr. Nathanael Cardona MD Status:RE G ER Location: ED HPI History of Present Illness Chief Complaint: Weakness Detail of Chief Complaint: Less responsive per visiting nurse Informant: patient and other Onset/Context/Timing Onset: Today (Visiting nurse stated he was not alert.) Context: - (Unknown) Timing: Intermittent Quality: Apparently he was confused and not as responsive. Location: Generalized Current Severity: Gone Maximum Severity: Unknown Worsened by: Nothing Relieved by: Not applicable Associated Symptoms Associated Symptoms: Patient reports mild congestion and cough that is nonproductive Narrative Narrative: Patient is a 68-year-old male. He is oriented x 3. He is awake and he is alert. He states he did not call. Medics. He is uncertain whether his did or the visiting nurse. He was discharged in the hospital yesterday. He wasadmitted for acute encephalopathy due to catheter associated urinary tract infection. He denies headache, double vision blurry vision loss of vision. He denies hitchcock ears decreased hearing. He denies trouble with speech or swallowing. Denies dry mouth or thirst. He does endorse mild nasal congestion. He also endorses cough that is nonproductive. He denies shortness of breath. He denies chest pain, pressure tightness heaviness. He denies pain with breathing. He denies history of VTE. He denies abdominal pain, nausea, vomiting diarrhea constipation. He has a colostomy. Stool is normal consistency for him. Not noted any blood or mucus. He has indwelling Benson. He has no urologic symptoms. Prior similar symptoms: Yes Recent Illness/Hospitalization: Yes (Patient was discharged yesterday from the hospital.) [facility] Medical History Other acute postprocedural pain Paraplegic spinal paralysis History of pressure ulcer Wears glasses Thyroid disease Arthritis Uses wheelchair High cholesterol Gastric reflux COPD (chronic obstructive pulmonary disease) Hx of fracture of arm Hx of head injury Bedridden Smoker Right ischial pressure sore, stage 4 Home Medications ?Medication ?Instructions ?Recorded ?Last Taken ?Type baclofen 10 mg tablet 20 mg PO TID spasm 12/17/17 08/02/24 History levothyroxine 125 mcg tablet 125 mcg PO DAILY THYROID 12/17/17 08/02/24 History tamsulosin 0.4 mg capsule 0.4 mg PO BID PROSTATE 12/1708/02/24 History icosapent ethyl 1 gram capsule 2 g PO BIDCM cholestero l 02/08/22 08/02/24 History (Vascepa) acetaminophen 650 mg 1,300 mg PO Q8H PRN Pain Unknown History tablet,extended release levofloxacin 750 mg tablet 750 mg PO DAILY #6 tabs 08/2108/02/24 Rx omeprazole 40 mg capsule,delayed 40 mg PO DAILY 08/02/24 History release Allergy/AdvReac Type Severity Reaction Status Date / Time Environmental Allergies: Allergy NEEDS Verified 07/29/24 19:17 Uncoded (dust) FOLLOW-UP house dust Allergy Other Verified 07/29/24 19:17 pollen extracts Allergy NEEDS Verified 07/29/24 19:17 FOLLOW-UP Family History Mother CVA (cerebral vascular accident) Hypertension Father Hypertension Prostate CA Surgical History S/P colostomy History of back surgery Hx of neck surgery Hx of spinal surgery Social History household members: spouse Smoking Status: Former smoker alcohol intake: never substance use type: does not use ROS ROS ED Constitutional Constitutional ED: Denies chills, fever(s), subjective, sweats or weight loss Eyes Eyes: Denies blurry vision, change in vision or diplopia ENT ENT ED: Reports rhinorrhea; Denies ear pain Cardiovascular Cardiovascular: Denies chest pain, orthopnea, palpitations, paroxysmal nocturnaldyspnea or racing heartbeat Respiratory/Chest Respiratory/Chest: Reports cough and dyspnea; Denies dyspnea on exertion, orthopnea, paroxysmal nocturnal dyspnea or sputum Gastrointestinal Gastrointestinal: Denies abdominal pain, diarrhea, melena, nausea or vomiting Genitourinary Genitourinary ED: Reports other Details: Indwelling Benson. ; Denies dysuria, hematuria or urinary frequency Musculoskeletal Musculoskeletal: Denies arthralgias or myalgias Integumentary Denies rash Neurologic Neurologic: Reports weakness; Denies headache(s) or paresthesias Psychiatric Psychiatric: Denies anxiety Endocrine Endocrinology: Denies cold intolerance or heat intolerance Hematologic/Lymphatic Hematologic/Lymphatic: Reports systems reviewed and no addt'l complaints, exceptas documented EXAM Physical Exam Const Vital Signs: 08/02/24 10:52 08/02/24 10:56 08/02/24 10:58 Temperature 98 F 98 F Temperature Source Oral Oral Pulse Rate 72 73 Respiratory Rate 24 H 22 H Respiratory Effort Normal Respiratory Pattern Normal Blood Pressure 162/76 H 162/76 H Blood Pressure Mean 104 104 Pulse Ox 97 96 Oxygen Delivery Method Nasal Cannula Nasal Cannula Oxygen Flow Rate (L/min) 2 2 08/02/24 11:56 08/02/24 12:00 Temperature 97.9 F 97.9 F Temperature Source Oral Oral Pulse Rate 61 64 Respiratory Rate 20 H 20 H Respiratory Effort Respiratory Pattern Blood Pressure 141/72 H 157/74 H Blood Pressure Mean 95 101 Pulse Ox 96 96 Oxygen Delivery Method Room Air Room Air Oxygen Flow Rate (L/min) Positive well nourished Constitutional Narrative: BMI is 37.0. Vital signs are remarkable for an elevated blood pressure and respiratory rate. General Appearance ED: Negative for pallor HEENT Reports moist mucous membranes HEENT Narrative: Head is atraumatic normocephalic. Ears normal. Nares slight drainage. Posterior pharynx is normal. Uvula is midline. Eyes PERRL and EOMs intact bilaterally General Eye ED: Negative for pale conjunctiva or scleral icterus Neck no lymphadenopathy, supple and no JVD Chest Wall inspection of chest normal and palpation of chest normal Resp normal respiratory effort and clear to auscultation bilaterally Cardio regular rate, regular rhythm, S1 normal heart sound, S2 normal heart sound and no murmurs GI normal to inspection, nondistended, normoactive bowel sounds, non-tender, non-distended and no masses; Negative for hepatosplenomegaly GI Narrative: Ostomy noted. Bag has brown soft stool. Auscultation: hypoactive bowel sounds Palpation: soft Back/Spine no CVA tenderness Extremity Extremity Narrative: Mild edema of his lower extremity, suspect this is due to the fact that he is wheelchair dependent. Neuro oriented x3 and CN's II-XII intact bilaterally Sensorium / Orientation: alert Psych mental status grossly normal Skin no rashes or lesions noted, no wounds and skin turgor normal General Skin Exam: Negative for jaundice or pallor MDM MDM MDM Narrative Medical decision making narrative: With patient complaint of respiratory symptoms this may represent viral infection. This possibly could represent aspiration pneumonitis versus pneumonia. Because of his altered mental status and the fact that he is tachypneic will obtain VBG to assess acid-base status especially as he had a metabolic acidosis on prior admission. CBC was obtained as well as electrolyte panel and UA. History & Record Review Additional record(s) reviewed:: Prior inpatient record (Dr. Dill's discharge summary authored on August 01 was reviewed.), Prior ED visit and Prior labs Lab Data Attestation: I reviewed the patient's lab results. Lab results narrative: CBC is remarkable for mild anemia with normal indices. Basic metabolic panel isunremarkable. BUN to creatinine ratio slightly elevated 21-1. UA is negative for evidence of infection. Labs: Laboratory Results - last 24 hr 08/02/24 08/02/24 11:03 12:04 WBC 7.5 RBC 3.77 L Hgb 10.8 L Hct 33.7 L MCV 89.4 MCH 28.6 MCHC 32.0 RDW Std Deviation 57.7 H RDW Coeff of Josue 17.7 H Plt Count 237 MPV 9.8 Immature Gran % (Auto) 0.500 Neut % (Auto) 62.3 Lymph % (Auto) 15.1 L [place] % (Auto) 15.1 H Eos % (Auto) 6.6 H Baso % (Auto) 0.4 Absolute Neuts (auto) 4.7 Absolute Lymphs (auto) 1.13 Nucleated RBC % 0 Sodium 144 Potassium 3.6 Chloride 113 H Carbon Dioxide 21.3 Anion Gap 10 BUN 23 H Creatinine 1.10 Estim Creat Clear Calc 73.63 Est GFR (MDRD) Non-Af 74 BUN/Creatinine Ratio 21.3 H Glucose 103 H Calcium 8.9 Urine Color Yellow Urine Clarity Clear Urine pH 7.0 Ur Specific [place] 1.005 Urine Protein 15 H Urine Glucose (UA) Normal Urine Ketones Negative Urine Occult Blood 10 H Urine Nitrite Negative Urine Bilirubin Negative Urine Urobilinogen Normal Ur Leukocyte Esterase 500 H Urine RBC 0 SEEN Urine WBC 0-5 SEEN Ur Squamous Epith Cells 0 SEEN Urine Bacteria 0 SEEN Urine Mucus 0 SEEN ABG Data ABG results: ABG 08/02/24 11:39 Specimen Type LUZ ELENA Sample Site Not entered O2 % 21.0 VBG pH 7.54 H VBG pO2 81 H VBG HCO3 32 H VBG Total CO2 33 VBG O2 Sat (Calc) 97 H VBG Base Excess 10 H POC Mix VBG pCO2 Pt Tmp 37.5 L O2 Delivery Device Not entered Radiography Chest X-Ray - ED: 2 View, Read by ED Physician (Independent reviewed interpretedby tx at 1156. Film slightly rotated. There is no cardiomegaly. There is no effusion or infiltrate. Film is suboptimal.), Unchanged, No Acute Disease and Chronic Changes Diagnostic Testing: Clinical Impression(s) from Imaging Studies Chest X-Ray 08/02/24 11:13 IMPRESSION: Similar appearance of the chest as above including cardiomegaly findings suggestive of mild interstitial edema or atypical pneumonia/pneumonitis. Reading Location: [facility] Radiology report was reviewed. Patient has evidence of chronic changes. This is unchanged from prior. Treatment and Re-Evaluation :: Since patient has no onset of pneumonia, urinary tract infection and is back to baseline will discharge to home. Discharge Plan Triage Chief Complaint: Weakness ED Provider: Hebert Saavedra Dx/Rx/DC Orders Clinical Impression: Acute alteration in mental status, Paraplegic spinal paralysis, Wheelchair dependent, S/P colostomy, Chronic suprapubic catheter, History of COPD, History of hypothyroidism, Elevated blood pressure reading with diagnosis of hypertension, Tachypnea Instructions: ED ALOC Prescriptions: No Action tamsulosin 0.4 MG capsule 0.4 mg PO BID baclofen 10 MG tablet 20 mg PO TID Patient Comments: pt states they increased to 2 tid levothyroxine 125 MCG tablet 125 mcg PO DAILY icosapent ethyl [Vascepa] 1 gram Capsule 2 g PO BIDCM acetaminophen 650 mg Tablet Extended Release 1,300 mg PO Q8H PRN (Reason: Pain) levofloxacin 750 mg tablet 750 mg PO DAILY Qty: 6 0RF Patient Comments: START DATE 08/01/24 omeprazole 40 mg capsule,delayed release(DR/EC) 40 mg PO DAILY Primary Care Provider: Nathanael Cardona Referrals: Nathanael Cardona MD [Primary Care Provider] - 1-2 Weeks Print Language: Yoruba Disposition Disposition: Home, Self Care What to do if you have Problems For any increased pain, shortness of breath, bleeding, nausea or vomiting, chestpain, or any unexpected problems, contact your Primary Care Provider. Call [facility] ([phone]) or report to the closest Emergency Room. Call 911 if necessary. 08/02/24 1254 <Electronically signed by Hebert Saavedra MD> Cosigner Signature (if applicable): CC: Dr. Nathanael Cardona MD ~ Signed [facility] Work Phone: [phone] 558-164205-06-2025 Discharge summary [facility] Medical Records Department [address] [place] [address] Emergency Department Summary 08/02/24 MR#: [id number] Acct: [id number] Name: JORGE COVINGTON Rep #:[id number] : 1955 68 From: Hebert Saavedra MD PCP: Dr. Nathanael Cardona MD Status:RE G ER Location: ED HPI History of Present Illness Chief Complaint: Weakness Detail of Chief Complaint: Less responsive per visiting nurse Informant: patient and other Onset/Context/Timing Onset: Today (Visiting nurse stated he was not alert.) Context: - (Unknown) Timing: Intermittent Quality: Apparently he was confused and not as responsive. Location: Generalized Current Severity: Gone Maximum Severity: Unknown Worsened by: Nothing Relieved by: Not applicable Associated Symptoms Associated Symptoms: Patient reports mild congestion and cough that is nonproductive Narrative Narrative: Patient is a 68-year-old male. He is oriented x 3. He is awake and he is alert. He states he did not call. Medics. He is uncertain whether his did or the visiting nurse. He was discharged in thehospital yesterday. He wasadmitted for acute encephalopathy due to catheter associated urinary tract infection. He denies headache, double vision blurry vision loss of vision. He denies hitchcock ears decreased hearing. He denies trouble with speech or swallowing. Denies dry mouth or thirst. He does endorse mild nasal congestion. He also endorses cough that is nonproductive. He denies shortness of breath. He denies chest pain, pressure tightness heaviness. He denies pain with breathing. He denies history of VTE. He denies abdominal pain, nausea, vomiting diarrhea constipation. He has a colostomy. Stool is normal consistency for him. Not noted any blood or mucus. He has indwelling Benson. He has no urologic symptoms. Prior similar symptoms: Yes Recent Illness/Hospitalization: Yes (Patient was discharged yesterday from the hospital.) [facility] Medical History Other acute postprocedural pain Paraplegic spinal paralysis History of pressure ulcer Wears glasses Thyroid disease Arthritis Uses wheelchair High cholesterol Gastric reflux COPD (chronic obstructive pulmonary disease) Hx of fracture of arm Hx of head injury Bedridden Smoker Right ischial pressure sore, stage 4 Home Medications ?Medication ?Instructions ?Recorded ?Last Taken ?Type baclofen 10 mg tablet 20 mg PO TID spasm 12/17/17 08/02/24 History levothyroxine 125 mcg tablet 125 mcg PO DAILY THYROID 12/17/17 08/02/24 History tamsulosin 0.4 mg capsule 0.4 mg PO BID PROSTATE 12/1708/02/24 History icosapent ethyl 1 gram capsule 2 g PO BIDCM cholestero l 02/08/22 08/02/24 History (Vascepa) acetaminophen 650 mg 1,300 mg PO Q8H PRN Pain Unknown History tablet,extended release levofloxacin 750 mg tablet 750 mg PO DAILY #6 tabs 08/2108/02/24 Rx omeprazole 40 mg capsule,delayed 40 mg PO DAILY 08/02/24 History release Allergy/AdvReac Type Severity Reaction Status Date / Time Environmental Allergies: Allergy NEEDS Verified 07/29/24 19:17 Uncoded (dust) FOLLOW-UP house dust Allergy Other Verified 07/29/24 19:17 pollen extracts Allergy NEEDS Verified 07/29/24 19:17 FOLLOW-UP Family History Mother CVA (cerebral vascular accident) Hypertension Father Hypertension Prostate CA Surgical History S/P colostomy History of back surgery Hx of neck surgery Hx of spinal surgery Social History household members: spouse Smoking Status: Former smoker alcohol intake: never substance use type: does not use ROS ROS ED Constitutional Constitutional ED: Denies chills, fever(s), subjective, sweats or weight loss Eyes Eyes: Denies blurry vision, change in vision or diplopia ENT ENT ED: Reports rhinorrhea; Denies ear pain Cardiovascular Cardiovascular: Denies chest pain, orthopnea, palpitations, paroxysmal nocturnaldyspnea or racing heartbeat Respiratory/Chest Respiratory/Chest: Reports cough and dyspnea; Denies dyspnea on exertion, orthopnea, paroxysmal nocturnal dyspnea or sputum Gastrointestinal Gastrointestinal: Denies abdominal pain, diarrhea, melena, nausea or vomiting Genitourinary Genitourinary ED: Reports other Details: Indwelling Benson. ; Denies dysuria, hematuria or urinary frequency Musculoskeletal Musculoskeletal: Denies arthralgias or myalgias Integumentary Denies rash Neurologic Neurologic: Reports weakness; Denies headache(s) or paresthesias Psychiatric Psychiatric: Denies anxiety Endocrine Endocrinology: Denies cold intolerance or heat intolerance Hematologic/Lymphatic Hematologic/Lymphatic: Reports systems reviewed and no addt'l complaints, exceptas documented EXAM Physical Exam Const Vital Signs: 08/02/24 10:52 08/02/24 10:56 08/02/24 10:58 Temperature 98 F 98 F Temperature Source Oral Oral Pulse Rate 72 73 Respiratory Rate 24 H 22 H Respiratory Effort Normal Respiratory Pattern Normal Blood Pressure 162/76 H 162/76 H Blood Pressure Mean 104 104 Pulse Ox 97 96 Oxygen Delivery Method Nasal Cannula Nasal Cannula Oxygen Flow Rate (L/min) 2 2 08/02/24 11:56 08/02/24 12:00 Temperature 97.9 F 97.9 F Temperature Source Oral Oral Pulse Rate 61 64 Respiratory Rate 20 H 20 H Respiratory Effort Respiratory Pattern Blood Pressure 141/72 H 157/74 H Blood Pressure Mean 95 101 Pulse Ox 96 96 Oxygen Delivery Method Room Air Room Air Oxygen Flow Rate (L/min) Positive well nourished Constitutional Narrative: BMI is 37.0. Vital signs are remarkable for an elevated blood pressure and respiratory rate. General Appearance ED: Negative for pallor HEENT Reports moist mucous membranes HEENT Narrative: Head is atraumatic normocephalic. Ears normal. Nares slight drainage. Posterior pharynx is normal. Uvula is midline. Eyes PERRL and EOMs intact bilaterally General Eye ED: Negative for pale conjunctiva or scleral icterus Neck no lymphadenopathy, supple and no JVD Chest Wall inspection of chest normal and palpation of chest normal Resp normal respiratory effort and clear to auscultation bilaterally Cardio regular rate, regular rhythm, S1 normal heart sound, S2 normal heart sound and no murmurs GI normal to inspection, nondistended, normoactive bowel sounds, non-tender, non- distended and no masses; Negative for hepatosplenomegaly GI Narrative: Ostomy noted. Bag has brown soft stool. Auscultation: hypoactive bowel sounds Palpation: soft Back/Spine no CVA tenderness Extremity Extremity Narrative: Mild edema of his lower extremity, suspect this is due to the fact that he is wheelchair dependent. Neuro oriented x3 and CN's II-XII intact bilaterally Sensorium / Orientation: alert Psych mental status grossly normal Skin no rashes or lesions noted, no wounds and skin turgor normal General Skin Exam: Negative for jaundice or pallor MDM MDM MDM Narrative Medical decision making narrative: With patient complaint of respiratory symptoms this may represent viral infection. This possibly could represent aspiration pneumonitis versus pneumonia. Because of his altered mental status and the fact that he is tachypneic will obtain VBG to assess acid-base status especially as he had a metabolic acidosis on prior admission. CBC was obtained as well as electrolyte panel and UA. History & Record Review Additional record(s) reviewed:: Prior inpatient record (Dr. Dill's discharge summary authored onMay 5 was reviewed.), Prior ED visit and Prior labs Lab Data Attestation: I reviewed the patient's lab results. Lab results narrative: CBC is remarkable for mild anemia with normal indices. Basic metabolic panel isunremarkable. BUN tocreatinine ratio slightly elevated 21-1. UA is negative for evidence of infection. Labs: Laboratory Results - last 24 hr 08/02/24 08/02/24 11:03 12:04 WBC 7.5 RBC 3.77 L Hgb 10.8 L Hct 33.7 L MCV 89.4 MCH 28.6 MCHC 32.0 RDW Std Deviation 57.7 H RDW Coeff of Josue 17.7 H Plt Count 237 MPV 9.8 Immature Gran % (Auto) 0.500 Neut % (Auto) 62.3 Lymph % (Auto) 15.1 L [place] % (Auto) 15.1 H Eos % (Auto) 6.6 H Baso % (Auto) 0.4 Absolute Neuts (auto) 4.7 Absolute Lymphs (auto) 1.13 Nucleated RBC % 0 Sodium 144 Potassium 3.6 Chloride 113 H Carbon Dioxide 21.3 Anion Gap 10 BUN 23 H Creatinine 1.10 Estim Creat Clear Calc 73.63 Est GFR (MDRD) Non-Af 74 BUN/Creatinine Ratio 21.3 H Glucose 103 H Calcium 8.9 Urine Color Yellow Urine Clarity Clear Urine pH 7.0 Ur Specific [place] 1.005 Urine Protein 15 H Urine Glucose (UA) Normal Urine Ketones Negative Urine Occult Blood 10 H Urine Nitrite Negative Urine Bilirubin Negative Urine Urobilinogen Normal Ur Leukocyte Esterase 500 H Urine RBC 0 SEEN Urine WBC 0-5 SEEN Ur Squamous Epith Cells 0 SEEN Urine Bacteria 0 SEEN Urine Mucus 0 SEEN ABG Data ABG results: ABG 08/02/24 11:39 Specimen Type LUZ ELENA Sample Site Not entered O2 % 21.0 VBG pH 7.54 H VBG pO2 81 H VBG HCO3 32 H VBG Total CO2 33 VBG O2 Sat (Calc) 97 H VBG Base Excess 10 H POC Mix VBG pCO2 Pt Tmp 37.5 L O2 Delivery Device Not entered Radiography Chest X-Ray - ED: 2 View, Read by ED Physician (Independent reviewed interpretedby tx at 1156. Filmslightly rotated. There is no cardiomegaly. There is no effusion or infiltrate. Film is suboptimal.), Unchanged, No Acute Disease and Chronic Changes Diagnostic Testing: Clinical Impression(s) from Imaging Studies Chest X-Ray 08/02/24 11:13 IMPRESSION: Similar appearance of the chest as above including cardiomegaly findings suggestive of mild interstitial edema or atypical pneumonia/pneumonitis. Reading Location: [facility] Radiology report was reviewed. Patient has evidence of chronic changes. This is unchanged from prior. Treatment and Re-Evaluation :: Since patient has no onset of pneumonia, urinary tract infection and is back to baseline will discharge to home. Discharge Plan Triage Chief Complaint: Weakness ED Provider: Hebert Saavedra Dx/Rx/DC Orders Clinical Impression: Acute alteration in mental status, Paraplegic spinal paralysis, Wheelchair dependent, S/P colostomy, Chronic suprapubic catheter, History of COPD, History of hypothyroidism, Elevated blood pressure reading with diagnosis of hypertension, Tachypnea Instructions: ED ALOC Prescriptions: No Action tamsulosin 0.4 MG capsule 0.4 mg PO BID baclofen 10 MG tablet 20 mg PO TID Patient Comments: pt states they increased to 2 tid levothyroxine 125 MCG tablet 125 mcg PO DAILY icosapent ethyl [Vascepa] 1 gram Capsule 2 g PO BIDCM acetaminophen 650 mg Tablet Extended Release 1,300 mg PO Q8H PRN (Reason: Pain) levofloxacin 750 mg tablet 750 mg PO DAILY Qty: 6 0RF Patient Comments: START DATE 08/01/24 omeprazole 40 mg capsule,delayed release(DR/EC) 40 mg PO DAILY Primary Care Provider: Nathanael Cardona Referrals: Nathanael Cardona MD [Primary Care Provider] - 1-2 Weeks Print Language: Yoruba Disposition Disposition: Home, Self Care What to do if you have Problems For any increased pain, shortness of breath, bleeding, nausea or vomiting, chestpain, or any unexpected problems, contact your Primary Care Provider. Call [facility] ([phone]) or report tothe closest Emergency Room. Call 911 if necessary. 08/02/24 1254 Cosigner Signature (if applicable): CC: Dr. Nathanael Cardona MD ~ Signed [facility]05-06-2025 Radiology Diagnostic study note [facility] Imaging Services [address] [place], [place] [id number] Chest PA and Lateral MR#: [id number] Acct: [id number] Name: JORGE COVINGTON Rep #: [id number] : 1955 M 68 From: Germaine Domingo MD PCP: Dr. Nathanael Cardona MD Status: AL E ER Study:Chest PA and Lateral Date of Exam: 08/02/24 Exam# [id number] Ordering Dr: Adri Saavedra MD PROCEDURE: CHEST PA AND LATERAL, 08/02/2024 REASON FOR EXAM: COUGH AND TACHYPNEA TECHNIQUE: PA and lateral views of the chest were obtained. COMPARISON: 07/29/2024 FINDINGS: Heart: Similar mild cardiomegaly. Mediastinum: Similar contours including widening of the RIGHT paratracheal stripe similar central vascular prominence. Lungs/pleura: Similar mild interstitial opacities in the lung bases. Suspect prominence of the epicardial fat pad projecting over the RIGHT lung base, similar to prior exams dating back to 04/10/2021. Similar bibasilar suspected atelectasis/scarring. No pleural effusion or visible pneumothorax. Bones: Demineralization. Multilevel spondylosis. ACDF. Thoracic dextroscoliosis.. Lines and support devices: None. Other: None. RAD/Chest PA and Lateral IMPRESSION: Similar appearance of the chest as above including cardiomegaly findings suggestive of mild interstitial edema or atypical pneumonia/pneumonitis. Reading Location: [id number] CC: Dr. Nathanael Cardona MD; Dr. Hebert Saavedra MD ~ Project Manager/Design Manager: Signed [facility]05-05-2025 [facility]05-02-2025 Telephone encounter Note* Telephone Encounter - Rocio Gutierrez RN - 07/29/2024 2:24 PM EDT S: Patient's spouse spoke with [facility] nurse regarding test results for spouse from 07/04/2024 B: Onset of symptoms/concern 07/04/2024 A: Patient had blood work completed on 07/04/2024 and has not received the results. Tests completed include: PSA total, T3 Free, T4 Free, TSH, Lipid Panel, Direct LDL, Complete Blood Count, Comprehensive Metabolic. Nurse reviewed the message from Dr. Cardona on 07/22/2024 addressing: TG is over 300, needs diet, Is he taking the Vascepa? Also his TSH is high, is he taking the 125 mcg Levothyroxine? Per spouse, patient is taking Vascepa and the Levothyroxine. Spouse requests to know the other test results. R: Message sent to office for follow up. Spouse verbalized understanding. Reason for Disposition Caller requesting lab results (Exception: Routine or non-urgent lab result.) Protocols used: PCP Call - No [id number] Miscellaneous Notes* Telephone Encounter - Rocio Gutierrez RN - 07/29/2024 2:24 PM EDT S: Patient's spouse spoke with [facility] nurse regarding test results for spouse from 07/04/2024 B: Onset of symptoms/concern 07/04/2024 A: Patient had blood work completed on 07/04/2024 and has not received the results. Tests completed include: PSA total, T3 Free, T4 Free, TSH, Lipid Panel, Direct LDL, Complete Blood Count, Comprehensive Metabolic. Nurse reviewed the message from Dr. Cardona on 07/22/2024 addressing: TG is over 300, needs diet, Is he taking the Vascepa? Also his TSH is high, is he taking the 125 mcg Levothyroxine? Per spouse, patient is taking Vascepa and the Levothyroxine. Spouse requests to know the other test results. R: Message sent to office for follow up. Spouse verbalized understanding. Reason for Disposition Caller requesting lab results (Exception: Routine or non-urgent lab result.) Protocols used: PCP Call - No [id number] documented in this [facility]03-31-20[address] [facility] Note Date/Time June 27, 2024 5:3 9pm [facility] [address] [place] [id number] Progress Note - Wound Care 06/27/24 1654 MR#: [id number] Acct: [id number] Name: JORGE COVINGTON Rep #:[id number] : 1955 68 From: Luca Naayk MD PCP: Dr. Nathanael Cardona MD Status:RE G RCR Location: History of Present Illness Date of Service: 06/27/24 Chief Complaint: Right ischial pressure sore, Stage IV. History of Wound: This is a 68-year-old white male who presented to the wound healing center with complaints of pressure ulcer to right buttock area with extension to the right ischial bone. This started in October,. Patient's was treating with OTC creams and keeping area clean. The ulcer starting increasing in size and went to the Emergency Department on 02/08/22. CT showed subcutaneous and deep soft tissue involvement and possible early abscess formation. The bone was not addressed. The patient has very limited mobility as a result of a prior spine injury/surgery. He utilizes a wheelchair at all times. He has not been using his billy lift at home to transfer but has been using a board to slide himself from his bed to chair at home. He sits in his wheelchair almost all day, not really able to change positions. They finally obtained a low air loss overlay totheir regular mattress at home. A roho cushion was ordered for his wheelchair. Patient is a former smoker, he quit early 2023. Surgery 04/28/22 - Excision right ischial pressure sore, Stage IV, with partial ostectomy for osteomyelitis. Size of wound 8 x 7 x 4.5 cm. Operative tissue cultures positive for MSSA and Cutibacterium acnes. Bone cultures positive for MSSA and Corynebacterium striatum. He is being treated with Augmentin. Pathology from surgery 04/28/22 showed chronic reparative and reactive change. No evidence of acute osteomyelitis. He had a diverting colostomy placed on 11/21/[address] Romero. Surgery 08/26/23 - Excision recurrent right ischial pressure sore, Stage IV, withpartial ostectomy for osteomyelitis. Discharged home on 08/27/23. Pathology right ischial pressure sore soft tissue showed focal ulceration, acuteand chronic inflammation an granulation tissue reaction. Right ischial bone, partial ostectomy showed fragments of bone with chronic inflammation and reactive changes, negative for acute osteomyelitis. Operative soft tissue cultures from 08/26/23 positive for Serratia marcescens, Staphylococcus capitis, and Corynebacterium striatum. Operative bone cultures from 08/26/23 positive for Serratia marcescens and Corynebacterium striatum. He was started on Levaquin and Doxycycline until he can be seen by ID on 11/04/23. Subjective Subjective Presents today for wound care center follow-up. Patient's has been doing wet-to-dry dressings with Dakin's. No fevers or chills, no abnormal drainage. Patient's pressure offloading bed is being delivered soon. Objective Data Objective Data Vital Signs: Vital Signs Temp Pulse Resp BP O2 Del Method 98.8 F 91 16 137/77 H Room Air 06/27/24 15:07 06/27/24 15:07 06/27/24 15:07 06/27/24 15:07 06/27/24 15:07 Oxygen Delivery Method Room Air Weight: 218 lb 14.704 oz Body Mass Index (BMI) 35.5 Charges/Coding Visit Charges Office Visits / Consults: 73833 OV L3 Est 20min Physical Exam Narrative Right ischial wound Measured 4 x 3 cm and 3 cm deep (down to muscle). No exposed bone at the base, all granulated. No fluid collections. Surroundingskin appears healthy Const alert and oriented x3 General Appearance: cooperative Eyes EOMs intact bilaterally Resp normal respiratory effort Cardio regular rate and regular rhythm GI GI Narrative: Diverting ostomy is present and is productive Debridement Note Debridement Note No debridement was completed: No debridement was completed today Post-Debridement Measurements and Additional Note: Post-Debridement Measurements/Treatment - Nurse 1 - General Ulcer Assessment Start: 05/30/24 15:13 Freq: Status: Active Protocol: .LOWDEVORAHT Activity Type Activity Date Activity User E-sign Co-sign Detail Recorded Client Recorded Date Recorded By Document 05/30/24 15:13 [id number] 05/30/24 15:25 Document 06/27/24 15:07 [facility] [id number] 06/27/24 15:16 [facility] 05/30/24 06/27/24 15:13 15:07 - Today's Visit Information Type of service Follow-up Visit Follow-up Visit (Physician/HEAD BAKER (Physician/HEAD BAKER ) ) Arrival Mode Wheelchair Wheelchair Transfer Assistance Billy Lift Accompanied by Patient Identification Verified (Name & Yes Yes ) Patient Requires Transmission-Based No Precautions Height and Weight Body Mass Index (BMI) 35.5 35.5 BMI Classification Obese Obese Vital Signs Temperature (97.8 F-99.1 F) 98.1 F 98.8 F Temperature Source Temporal Temporal Pulse Rate (60-100) 90 91 Pulse Location Monitor Monitor Respiratory Rate (12-18) 16 16 Respiratory rate source Observation Observation Oxygen Delivery Method Room Air Room Air Blood Pressure (90/60-120/80) 117/79 137/77 H Blood Pressure Mean (mm Hg) 91 97 Source Monitor Monitor Position Sitting Sitting Blood Pressure Location Left Forearm Left Arm History Since Last Visit- (Skip if this is Patient's initial visit) Have you changed medications since your No No last visit? Any new allergies or adverse reactions No No Had a fall/change in ADL's that may No No increase risk of falls Signs or symptoms of abuse and/or No No neglect since last visit Have you been in the hospital since your No No last visit? Has dressing in place as prescribed Yes Yes Has compression in place as prescribed N/A N/A Has offloadiing in place as prescribed N/A N/A Experienced any changes in pain level or No No management Left Footwear Regular Shoe Regular Shoe Right Footwear Regular Shoe Regular Shoe Pain Scale: 0-10 Numeric Is Patient Pain Free? Yes Yes WC - Nurse 1 - General Ulcer Measurement Start: 05/30/24 15:13 Freq: Status: Active Protocol: Activity Type Activity Date Activity User E-sign Co-sign Detail Recorded Client Recorded Date Recorded By Document 05/30/24 15:13 [id number] 05/30/24 15:25 KW Document 06/27/24 15:07 [facility] [id number] 06/27/24 15:16 BM 05/30/24 06/27/24 15:13 15:07 Wound Center Nurse 1 #5- R ischium Post op -Current Size (cm) - Length 5.2 4.5 -Current Size (cm) - Width 2.1 1.5 -Current Size (cm) - Depth 5.6 6.7 -Total Square Cm 10.92 6.75 -Date of Last Picture (Recall this 05/30/24 06/27/24 field) -Tunneling Yes Yes -Tunneling Position (O'clock) 2 2 -Tunneling Distance (cm) 7 5.9 -Exudate Amt Large Large -Exudate Type Serosanguineous Serosanguineous -Wound Margin Distinct, Distinct, Outline Outline Attached Attached -Granulation Amt Large (67-100%) Large (67-100%) -Granulation Quality Red Red -Necrosis Amt Small (1-33%) -Necrotic Tissue Type Adherent Slough -Texture (Michelle-wound Skin Appearance) Assessed Assessed -Moisture (Michelle-wound Skin Appearance) Assessed, Assessed, Maceration Maceration -Color (Michelle-wound Skin Appearance) Assessed Assessed -Temperature (Michelle-wound Skin No Abnormality No Abnormality Appearance) (Pt Warm) (Pt Warm) -Tenderness on Palpation (Michelle-wound No No Skin Appearance) -Ulcer Cleansing Soap and Water Soap and Water -Foul Odor after Cleansing No No -Anesthetic Used 4% Lidocaine 5% Lidocaine Solution Gel WC - Nurse 2 - General Ulcer CM Notes Start: 05/30/24 15:13 Freq: Status: Active Protocol: Activity Type Activity Date Activity User E-sign Co-sign Detail Recorded Client Recorded Date Recorded By Document 05/30/24 15:34 JF [id number] 05/30/24 15:39 JF Document 06/27/24 15:43 JF [id number] 06/27/24 15:49 JF Edit Result 06/27/24 15:43 JF (1) [id number] 06/27/24 15:54 JF (1) #5- R ischium Post op - Correct Side, Site, Position Yes => No - Correct Procedure Yes => No - Procedure Performed Yes => No - Type of Procedure Debridement => - Clinical Debridement Muscle / Fascia => - Tissue Removed Muscle,Fascia => - Debridement - Muscle / Fascia, 1st Yes => 20sq cm 05/30/24 06/27/24 15:34 15:43 Wound Center Nurse 2 #5- R ischium Post op -Time 15:34 15:43 -Correct Patient Yes Yes -Correct Side, Site, Position Yes No -Correct Procedure Yes No -Procedure Performed Yes No -Type of Procedure Debridement -Clinical Debridement Muscle / Fascia -Tissue Removed Muscle,Fascia -Post Debridement (cm) - Length 5.4 4 -Post Debridement (cm) - Width 3.9 3 -Post Debridement (cm) - Depth 5.5 3 -Total Square (Post) (cm) 21.06 12 -Area of Debridement (cm) - Length 5.4 4 -Area of Debridement (cm) - Width 3.9 3 -Total Square (Area) (cm) 21.06 12 -Tunneling No No -Undermining/Tunneling No No -Circular Undermining No No -Wound/Ulcer Outcome Not Healed Not Healed -Ulcer Cleansing Rinsed/ Rinsed/ Irrigated with Irrigated with Saline Saline -Foul Odor after Cleansing No No -Bioengineered Tissue No No -Bleeding Controlled with Pressure Pressure -Treatment Response Procedure Procedure Tolerated Well Tolerated Well -Offloading No No -Pressure Reduction Wheelchair Wheelchair cushion cushion -Debridement - Muscle / Fascia, 1st Yes 20sq cm -Debridement, Muscle/Fascia, ea addt'l 1 20sq cm or part thereof Pain Scale: 0-10 Numeric Is Patient Pain Free? Yes Yes - Nurse 3 - General Ulcer D/C NN Start: 05/30/24 15:13 Freq: Status: Active Protocol: Activity Type Activity Date Activity User E-sign Co-sign Detail Recorded Client Recorded Date Recorded By Document 05/30/24 15:45 DL [id number] 05/30/24 15:48 DL Document 06/27/24 16:00 KW [id number] 06/27/24 16:00 KW 05/30/24 06/27/24 15:45 16:00 Wound Care Center Nurse 3 #5- R ischium Post op -Ulcer Cleansing Rinsed/ Irrigated with Saline -Foul Odor after Cleansing No -Primary Dressing Applied Hysept -Other Dressing dakins dakins -Primary Dressing Covered/Secured with Dry Gauze, Dry Gauze, Secured with Secured with Tape Tape -Other Covering ABD -Hysept 1 -Wound Comment(s) Dressing applied per Ramsey Ryder today. Treatment Response Procedure Tolerated Well Pain Scale: 0-10 Numeric Is Patient Pain Free? Yes Yes - Visit Discharge Discharge Condition Stable Stable Ambulatory Status Wheelchair Wheelchair Transportation Private Auto Private Auto Medication Reconcilliation completed & No provided to patient/care provider Clinical Summary of Care Provided Yes Facility Type Home Health Orders Sent Yes Assessment/Plan Assessment/Plan (1) Right ischial pressure sore: CODE(S): L89.319 - Pressure ulcer of right buttock, unspecified stage (2) Right ischial pressure sore, stage 4: CODE(S): L89.314 - Pressure ulcer of right buttock, stage 4 PLAN: Wound care - Dakin's 0.25% moistened gauze packed into the ulcer twice daily and prn covered with ABD or gauze. Wash the ulcer and michelle wound with soap and water at the time of the dressing change. His has been working on getting the [facility] records about his spine surgery and his prognosis. She states that she was told it was sent and received but nobody in the hospital system has been able to locate his chart. We will continue to try to get these records. Encouraged increased protein intake to help with wound healing. Waiting to hear from the [facility] to see if they can assist them financially for a new low air loss mattress. PLAN FROM 21 Mar 2024: I would like to try the VAC again. Patient and reluctant 2/2 problems with it in the past being so close to gluteal crease/perineum. For now, agree with continued Dakins. We talked about practicality of flap reconstruction and risks/benefits, and they're unsure of the benefit, especially if risks of failure/need for further wound care are so high and they're required to have strict and uncomfortable positioning restrictions. F/u and re-address in 2 weeks. 04 Apr 2024: would not like to do wound vac. Reports that it causes too many problems with leaking, ect. They're going to consider options for reconstruction, but areconcerned about post-operative rehab and pressure offloading (practicality of not being able to be in a wheelchair). Mrs. Covington is going to call me and discuss further after she and her have discussed more. PLAN FROM 02 May 2024: After thorough discussion of options for potential reconstruction, and Mrs. Covington would like to defer reconstruction at this time and continue local woundcare regimen. Follow-up in 2 weeks for wound check. Continue current regimen. Plan from 30 May 2024: Making improvements with dressings. Continue offloading and the Dakins WTD. O.K. for monthly wound checks (challenge for the family to come more often than this, and wound is open and healthy). Plan to continue to promote granulation (has granulated over bone with current regimen). PLAN FROM 27 June 2024: Wound check today demonstrated healthy granulating wound without any signs of fluid collection or other signs of infection. I believe that the Dakin's wet-to-dry is the best dressing at this point to maintain a healthy wound. Theywould like to follow-up in 1 month which I think is reasonable for just a wound check. 06/27/24 8214 <Electronically signed by Luca Nayak MD> Cosigner Signature (if applicable): CC: ~ Signed [facility] Work Phone: [phone] [facility] [address] [place] [address] Progress Note - Wound Care 06/27/24 1654 MR#: [id number] Acct: [id number] Name: JORGE COVINGTON Rep #:[id number] : 1955 68 From: Luca Nayak MD PCP: Dr. Nathanael Cardona MD Status:RE G RCR Location: History of Present Illness Date of Service: 06/27/24 Chief Complaint: Right ischial pressure sore, Stage IV. History of Wound: This is a 68-year-old white male who presented to the wound healing center with complaints of pressure ulcer to right buttock area with extension to the right ischial bone. This started in October,. Patient's was treating with OTC creams and keeping area clean. The ulcer starting increasing in size and went to the Emergency Department on 02/08/22. CT showed subcutaneous and deep soft tissue involvement and possible early abscess formation. The bone was not addressed. The patient has very limited mobility as a result of a prior spine injury/surgery. He utilizes a wheelchair at all times. He has not been using his billy lift at home to transfer but has been using aboard to slide himself from his bed to chair at home. He sits in his wheelchair almost all day, notreally able to change positions. They finally obtained a low air loss overlay totheir regular mattress at home. A roho cushion was ordered for his wheelchair. Patient is a former smoker, he quit early 2023. Surgery 04/28/22 - Excision right ischial pressure sore, Stage IV, with partial ostectomy for osteomyelitis. Size of wound 8 x 7 x 4.5 cm. Operative tissue cultures positive for MSSA and Cutibacterium acnes. Bone cultures positive for MSSA and Corynebacterium striatum. He is being treated with Augmentin. Pathology from surgery 04/28/22 showed chronic reparative and reactive change. No evidence of acute osteomyelitis. He had a diverting colostomy placed on 11/21/[address] Romero. Surgery 08/26/23 - Excision recurrent right ischial pressure sore, Stage IV, withpartial ostectomy for osteomyelitis. Discharged home on 08/27/23. Pathology right ischial pressure sore soft tissue showed focal ulceration, acuteand chronic inflammation an granulation tissue reaction. Right ischial bone, partial ostectomy showed fragments of bonewith chronic inflammation and reactive changes, negative for acute osteomyelitis. Operative soft tissue cultures from 08/26/23 positive for Serratia marcescens, Staphylococcus capitis, and Corynebacterium striatum. Operative bone cultures from 08/26/23 positive for Serratia marcescens and Corynebacterium striatum.He was started on Levaquin and Doxycycline until he can be seen by ID on 11/04/23. Subjective Subjective Presents today for wound care center follow-up. Patient's has been doing wet-to-dry dressings with Dakin's. No fevers or chills, no abnormal drainage. Patient's pressure offloading bed is being delivered soon. Objective Data Objective Data Vital Signs: Vital Signs Temp Pulse Resp BP O2 Del Method 98.8 F 91 16 137/77 H Room Air 06/27/24 15:07 06/27/24 15:07 06/27/24 15:07 06/27/24 15:07 06/27/24 15:07 Oxygen Delivery Method Room Air Weight: 218 lb 14.704 oz Body Mass Index (BMI) 35.5 Charges/Coding Visit Charges Office Visits / Consults: 83548 OV L3 Est 20min Physical Exam Narrative Right ischial wound Measured 4 x 3 cm and 3 cm deep (down to muscle). No exposed bone at the base, all granulated. No fluid collections. Surroundingskin appears healthy Const alert and oriented x3 General Appearance: cooperative Eyes EOMs intact bilaterally Resp normal respiratory effort Cardio regular rate and regular rhythm GI GI Narrative: Diverting ostomy is present and is productive Debridement Note Debridement Note No debridement was completed: No debridement was completed today Post-Debridement Measurements and Additional Note: Post-Debridement Measurements/Treatment WC - Nurse 1 - General Ulcer Assessment Start: 05/30/24 15:13 Freq: Status: Active Protocol: KIRA Activity Type Activity Date Activity User E-sign Co-sign Detail Recorded Client Recorded Date Recorded By Document 05/30/24 15:13 KW [id number] 05/30/24 15:25 KW Document 06/27/24 15:07 BM [id number] 06/27/24 15:16 BMF 05/30/24 06/27/24 15:13 15:07 - Today's Visit Information Type of service Follow-up Visit Follow-up Visit (Physician/HEAD BAKER (Physician/HEAD BAKER ) ) Arrival Mode Wheelchair Wheelchair Transfer Assistance Billy Lift Accompanied by Patient Identification Verified (Name & Yes Yes ) Patient Requires Transmission-Based No Precautions Height and Weight Body Mass Index (BMI) 35.5 35.5 BMI Classification Obese Obese Vital Signs Temperature (97.8 F-99.1 F) 98.1 F 98.8 F Temperature Source Temporal Temporal Pulse Rate (60-100) 90 91 Pulse Location Monitor Monitor Respiratory Rate (12-18) 16 16 Respiratory rate source Observation Observation Oxygen Delivery Method Room Air Room Air Blood Pressure (90/60-120/80) 117/79 137/77 H Blood Pressure Mean (mm Hg) 91 97 Source Monitor Monitor Position Sitting Sitting Blood Pressure Location Left Forearm Left Arm History Since Last Visit- (Skip if this is Patient's initial visit) Have you changed medications since your No No last visit? Any new allergies or adverse reactions No No Had a fall/change in ADL's that may No No increase risk of falls Signs or symptoms of abuse and/or No No neglect since last visit Have you been in the hospital since your No No last visit? Has dressing in place as prescribed Yes Yes Has compression in place as prescribed N/A N/A Has offloadiing in place as prescribed N/A N/A Experienced any changes in pain level or No No management Left Footwear Regular Shoe Regular Shoe Right Footwear Regular Shoe Regular Shoe Pain Scale: 0-10 Numeric Is Patient Pain Free? Yes Yes - Nurse 1 - General Ulcer Measurement Start: 05/30/24 15:13 Freq: Status: Active Protocol: Activity Type Activity Date Activity User E-sign Co-sign Detail Recorded Client Recorded Date Recorded By Document 05/30/24 15:13 KW [id number] 05/30/24 15:25 KW Document 06/27/24 15:07 [facility] [id number] 06/27/24 15:16 BM 05/30/24 06/27/24 15:13 15:07 Wound Center Nurse 1 #5- R ischium Post op -Current Size (cm) - Length 5.2 4.5 -Current Size (cm) - Width 2.1 1.5 -Current Size (cm) - Depth 5.6 6.7 -Total Square Cm 10.92 6.75 -Date of Last Picture (Recall this 05/30/24 06/27/24 field) -Tunneling Yes Yes -Tunneling Position (O'clock) 2 2 -Tunneling Distance (cm) 7 5.9 -Exudate Amt Large Large -Exudate Type Serosanguineous Serosanguineous -Wound Margin Distinct, Distinct, Outline Outline Attached Attached -Granulation Amt Large (67-100%) Large (67-100%) -Granulation Quality Red Red -Necrosis Amt Small (1-33%) -Necrotic Tissue Type Adherent Slough -Texture (Michelle-wound Skin Appearance) Assessed Assessed -Moisture (Michelle-wound Skin Appearance) Assessed, Assessed, Maceration Maceration -Color (Michelle-wound Skin Appearance) Assessed Assessed -Temperature (Michelle-wound Skin No Abnormality No Abnormality Appearance) (Pt Warm) (Pt Warm) -Tenderness on Palpation (Michelle-wound No No Skin Appearance) -Ulcer Cleansing Soap and Water Soap and Water -Foul Odor after Cleansing No No -Anesthetic Used 4% Lidocaine 5% Lidocaine Solution Gel WC - Nurse 2 - General Ulcer CM Notes Start: 05/30/24 15:13 Freq: Status: Active Protocol: Activity Type Activity Date Activity User E-sign Co-sign Detail Recorded Client Recorded Date Recorded By Document 05/30/24 15:34 JF [id number] 05/30/24 15:39 JF Document 06/27/24 15:43 JF [id number] 06/27/24 15:49 JF Edit Result 06/27/24 15:43 JF (1) [id number] 06/27/24 15:54 JF (1) #5- R ischium Post op - Correct Side, Site, Position Yes => No - Correct Procedure Yes => No - Procedure Performed Yes => No - Type of Procedure Debridement => - Clinical Debridement Muscle / Fascia => - Tissue Removed Muscle,Fascia => - Debridement - Muscle / Fascia, 1st Yes => 20sq cm 05/30/24 06/27/24 15:34 15:43 Wound Center Nurse 2 #5- R ischium Post op -Time 15:34 15:43 -Correct Patient Yes Yes -Correct Side, Site, Position Yes No -Correct Procedure Yes No -Procedure Performed Yes No -Type of Procedure Debridement -Clinical Debridement Muscle / Fascia -Tissue Removed Muscle,Fascia -Post Debridement (cm) - Length 5.4 4 -Post Debridement (cm) - Width 3.9 3 -Post Debridement (cm) - Depth 5.5 3 -Total Square (Post) (cm) 21.06 12 -Area of Debridement (cm) - Length 5.4 4 -Area of Debridement (cm) - Width 3.9 3 -Total Square (Area) (cm) 21.06 12 -Tunneling No No -Undermining/Tunneling No No -Circular Undermining No No -Wound/Ulcer Outcome Not Healed Not Healed -Ulcer Cleansing Rinsed/ Rinsed/ Irrigated with Irrigated with Saline Saline -Foul Odor after Cleansing No No -Bioengineered Tissue No No -Bleeding Controlled with Pressure Pressure -Treatment Response Procedure Procedure Tolerated Well Tolerated Well -Offloading No No -Pressure Reduction Wheelchair Wheelchair cushion cushion -Debridement - Muscle / Fascia, 1st Yes 20sq cm -Debridement, Muscle/Fascia, ea addt'l 1 20sq cm or part thereof Pain Scale: 0-10 Numeric Is Patient Pain Free? Yes Yes - Nurse 3 - General Ulcer D/C NN Start: 05/30/24 15:13 Freq: Status: Active Protocol: Activity Type Activity Date Activity User E-sign Co-sign Detail Recorded Client Recorded Date Recorded By Document 05/30/24 15:45 DL [id number] 05/30/24 15:48 DL Document 06/27/24 16:00 KW [id number] 06/27/24 16:00 KW 05/30/24 06/27/24 15:45 16:00 Wound Care Center Nurse 3 #5- R ischium Post op -Ulcer Cleansing Rinsed/ Irrigated with Saline -Foul Odor after Cleansing No -Primary Dressing Applied Hysept -Other Dressing dakins dakins -Primary Dressing Covered/Secured with Dry Gauze, Dry Gauze, Secured with Secured with Tape Tape -Other Covering ABD -Hysept 1 -Wound Comment(s) Dressing applied per Ramsey silver. Treatment Response Procedure Tolerated Well Pain Scale: 0-10 Numeric Is Patient Pain Free? Yes Yes WC - Visit Discharge Discharge Condition Stable Stable Ambulatory Status Wheelchair Wheelchair Transportation Private Auto Private Auto Medication Reconcilliation completed & No provided to patient/care provider Clinical Summary of Care Provided Yes Facility Type Home Health Orders Sent Yes Assessment/Plan Assessment/Plan (1) Right ischial pressure sore: CODE(S): L89.319 - Pressure ulcer of right buttock, unspecified stage (2) Right ischial pressure sore, stage 4: CODE(S): L89.314 - Pressure ulcer of right buttock, stage 4 PLAN: Wound care - Dakin's 0.25% moistened gauze packed into the ulcer twice daily and prn covered with ABD or gauze. Wash the ulcer and michelle wound with soap and water at the time of the dressing change. His has been working on getting the [facility] records about his spine surgery and his prognosis. She states that she was told it was sent and received but nobody in the hospital system has been able to locate his chart. We will continue to try to get these records. Encouraged increased protein intake to help with wound healing. Waiting to hear from the [facility] to see if they can assist them financially for a new low air loss mattress. PLAN FROM 21 Mar 2024: I would like to try the VAC again. Patient and reluctant 2/2 problems with it in the past being so close to gluteal crease/perineum. For now, agree with continued Dakins. We talked about practicality of flap reconstruction and risks/benefits, and they're unsure of the benefit, especially if risks of failure/need for further wound care are so high and they're required to have strict and uncomfortable positioning restrictions. F/u and re-address in 2 weeks. 04 Apr 2024: would not like to do wound vac. Reports that it causes too many problems with leaking, ect. They're going to consider options for reconstruction, but areconcerned about post-operative rehab and pressure offloading (practicality of not being able to be in a wheelchair). Mrs. Covington is going to call me and discuss further after she and her have discussed more. PLAN FROM 02 May 2024: After thorough discussion of options for potential reconstruction, and Mrs. Covington would like to defer reconstruction at this time and continue local woundcare regimen. Follow-up in 2 weeks for wound check. Continue current regimen. Plan from 30 May 2024: Making improvements with dressings. Continue offloading and the Dakins WTD. O.K. for monthly wound checks (challenge for the family to come more often than this, and wound is open and healthy). Plan to continue to promote granulation (has granulated over bone with current regimen). PLAN FROM 27 June 2024: Wound check today demonstrated healthy granulating wound without any signs of fluid collection or other signs of infection. I believe that the Dakin's wet-to-dry is the best dressing at this point tomaintain a healthy wound. Theywould like to follow-up in 1 month which I think is reasonable for just a wound check. 06/27/24 [id number] Cosigner Signature (if applicable): CC: ~ Signed [facility]03-16-2025 Discharge summary [facility] Medical Records Department [address] [place] [address] Instructions for Home/Discharge Instructions 06/12/24 1326 MR#: [id number] Acct: [id number] Name: JORGE COVINGTON Rep #:[id number] : 1955 68 From: Juliana Shaw MD PCP: Dr. Nathanael Cardona MD Status:AD M IN Discharge Instructions Diet Discharge Diet: No restrictions DC O2, CPAP, BIPAP needs Home O2 Discharge instructions: No Dressing / Incision Discharge Activity: Return to Normal Activity Follow Up Care Test Results: Test results from this visit will be discussed in further detail at your follow- up appointment, if applicable. Discharge Plan Admission Admit Date/Time: 06/09/24 12:06 Primary Reason for Your Visit: Weakness and fever Attending Provider: Juliana Shaw Primary Care Provider: Nathanael Cardona Instructions Patient Instructions: ED Bladder Infection, Male (Adult) Additional Instructions / Restrictions: DISCHARGE INSTRUCTIONS PLEASE READ *Please take this with you to your next doctors appointment* - -Please call your primary care provider's office upon discharge to schedule a hospital follow up within 1 week. -For any concerning signs or symptoms please call 911 or proceed to the nearest emergency department Discharge Orders/Prescriptions Prescriptions: New amoxicillin-pot clavulanate 875-125 mg tablet 1 tab PO BID 7 Days Qty: 14 0RF linezolid 600 mg tablet 600 mg PO BID 7 Days Qty: 14 0RF Continued tamsulosin 0.4 MG capsule 0.4 mg PO BID baclofen 10 MG tablet 15 mg PO TID Patient Comments: 1.5 TABS = 15 MG TID levothyroxine 125 MCG tablet 125 mcg PO DAILY icosapent ethyl [Vascepa] 1 gram Capsule 2 g PO BID acetaminophen 650 mg Tablet Extended Release 1,300 mg PO Q8H PRN (Reason: Pain) esomeprazole magnesium [Nexium] 40 mg Capsule,Delayed Release(Dr/Ec) 40 mg PO DAILY Other Ambulatory Orders: 14 Day Event Recorder Preventi (Urgent) Timeframe: 1 Day Facility: [facility] - Location: Cardiovascular Services Ordered By: Dr. Juliana Shaw Referrals / Follow Up: Nathanael Cardona MD [Primary Care Provider] - Disposition Disposition (needs filled in before D/C Order can be placed): Home Health Service 06/12/24 1332Plan Shaw MD CC: Dr. Nathanael Cardona MD ~ Signed [facility]03-16-2025 [facility]03-15-2025 Progress note Author Juliana [facility] Note Date/Time June 11, 2024 12: 44pm [facility] Medical Records Department [address] [place] [address] Progress Note - Hospitalist 06/11/24 1242 MR#: [id number] Acct: [id number] Name: JORGE COVINGTON Rep #:[id number] : 1955 68 From: Juliana Shaw MD PCP: Dr. Nathanael Cardona MD Status:AD IN Location: [place] [address] Reason for Visit Reason for Visit: Diagnoses Urinary tract infection, site not specified (06/09/24) Subjective Subjective Patient continues to improve overall, suspect patient will be able to DC home ondischarge Objective Data Objective Data Vital Signs: Vital Signs Temp Pulse Resp BP Pulse Ox O2 Del Method O2 Flow Rate 97.6 F L 79 16 118/56 L 98 Room Air 3 06/11/24 09:00 06/11/24 09:00 06/11/24 09:00 06/11/24 09:00 06/11/24 09:00 06/11/24 09:00 06/09/24 13:38 Oxygen Flow Rate (L/min) 3 Oxygen Delivery Method Room Air Weight: 96.757 kg Body Mass Index (BMI) 34.4 Intake & Output: Intake and Output for Last 24 Hours 06/09/24 06/10/24 06/11/24 23:59 23:59 23:59 Intake Total 750 / 750 2565.83 / 3065.83 1404.17 / 1404.17 Output Total 525 / 525 750 / 1550 800 / 800 Balance 225 / 225 1815.83 / 1515.83 604.17 / 604.17 Lab / Micro Data 06/11/24 05:41 06/11/24 05:41 Labs: Laboratory Results - last 24 hr 06/11/24 05:41: WBC 9.7, RBC 4.18 L, Hgb 11.9 L, Hct 37.0 L, MCV 88.5, MCH 28.5,MCHC 32.2, RDW Std Deviation 53.7 H, RDW Coeff of Josue 16.6 H, Plt Count 270, MPV9.6, Immature Gran % (Auto) 1.100 H, Neut % (Auto) 72.2 H, Lymph % (Auto) 16.6 L, [place] % (Auto) 7.4, Eos % (Auto) 2.2, Baso % (Auto) 0.5, Absolute Neuts (auto) 7.0, Absolute Lymphs (auto) 1.61, Nucleated RBC % 0, Sodium 134, Potassium 4.2, Chloride 102, Carbon Dioxide 21.5, Anion Gap 11, BUN 13, Creatinine 0.61 L, Estim Creat Clear Calc 97.57, Est GFR (MDRD) Non-Af 105, BUN/Creatinine Ratio 21.5 H, Glucose 148 H, Calcium 9.1 Micro: Microbiology 06/09/24 09:40 Blood Culture (Wb) - Right Forearm Blood Culture - Preliminary No growth in 48 hours. 06/09/24 09:31 Blood Culture (Wb) - Left Hand Blood Culture - Preliminary No growth in 48 hours. 06/09/24 09:25 Urine Catheter - Benson Urine Culture - Preliminary Klebsiella oxytoca Staphylococcus aureus 06/09/24 09:40 Mucosa - Nose SARS-CoV-2, Influenza & RSV (PCR) - Final Physical Exam Narrative General: Alert, answers questions appropriately, no apparent distress HEENT: Atraumatic, normocephalic Eyes: Anicteric Neck: Supple Respiratory: Normal respiratory effort Cardiovascular: Normal rate GI: Soft, nontender, nondistended Extremities: No significant pitting edema Musculoskeletal: Patient chronically wheelchair-bound Neuro: Patient chronically wheelchair-bound Skin: No rashes appreciated Psych: Cooperative Assessment & Plan Assessment/Plan (1) Complicated urinary tract infection: PLAN: Plan # Complicated urinary tract infection in association with chronic indwelling Benson secondary to Klebsiella and Staph aureus -Patient tachycardic with elevated white blood cell count, UA suspicious for UTI -Cultures sent -IV fluids -Will place patient on Levaquin due to previous urinary tract infection sensitivities -06/10: Remains on Levaquin with cultures pending, preliminarily growing gram- negative edward lactose parliamentary librarian, white blood cell count downtrending, patient vitally stable -06/11: Patient on Levaquin which is covering the Klebsiella, patient also now growing Staph aureus without sensitivities pending, if sensitivities are back tomorrow and there is an appropriate oral regimen can likely DC home if not may need ID consult on Thursday if patient requires IV antibiotics, patient verbalizedunderstanding, agreeable to plan Chronic medical problems: # Chronic paraplegia -Supportive care -Occupational Therapy ordered -Treat underlying infection, suspect this will improve functional status -Continue baclofen as tolerated #Hypothyroidism -Continue Synthroid # Chronic decubitus ulcer -Following with Dr. Kay, healing well, continue outpatient follow-up -Will consult wound care while patient admitted #GERD -Continue PPI # Hyperlipidemia -Continue Vascepa if available #DVT ppx: SCDs Juliana Shaw MD Charges/Coding Visit Charges Inpatient E&M: 87273 Subs Hosp L1 06/11/24 1244 <Electronically signed by Juliana Shaw MD> Cosigner Signature (if applicable): CC: ~ Signed [facility] Work Phone: [phone] Progress note [facility] Medical Records Department [address] [place] [address] Progress Note - Hospitalist 06/11/24 1242 MR#: [id number] Acct: [id number] Name: JORGE COVINGTON Rep #:[id number] : 1955 68 From: Juliana Shaw MD PCP: Dr. Nathanael Cardona MD Status:AD M IN Location: [place] [address]- 1 Reason for Visit Reason for Visit: Diagnoses Urinary tract infection, site not specified (06/09/24) Subjective Subjective Patient continues to improve overall, suspect patient will be able to DC home ondischarge Objective Data Objective Data Vital Signs: Vital Signs Temp Pulse Resp BP Pulse Ox O2 Del Method O2 Flow Rate 97.6 F L 79 16 118/56 L 98 Room Air 3 06/11/24 09:00 06/11/24 09:00 06/11/24 09:00 06/11/24 09:00 06/11/24 09:00 06/11/24 09:00 06/09/24 13:38 Oxygen Flow Rate (L/min) 3 Oxygen Delivery Method Room Air Weight: 96.757 kg Body Mass Index (BMI) 34.4 Intake & Output: Intake and Output for Last 24 Hours 06/09/24 06/10/24 06/11/24 23:59 23:59 23:59 Intake Total 750 / 750 2565.83 / 3065.83 1404.17 / 1404.17 Output Total 525 / 525 750 / 1550 800 / 800 Balance 225 / 225 1815.83 / 1515.83 604.17 / 604.17 Lab / Micro Data 06/11/24 05:41 06/11/24 05:41 Labs: Laboratory Results - last 24 hr 06/11/24 05:41: WBC 9.7, RBC 4.18 L, Hgb 11.9 L, Hct 37.0 L, MCV 88.5, MCH 28.5,MCHC 32.2, RDW Std Deviation 53.7 H, RDW Coeff of Josue 16.6 H, Plt Count 270, MPV9.6, Immature Gran % (Auto) 1.100 H, Neut % (Auto) 72.2 H, Lymph % (Auto) 16.6 L, [place] % (Auto) 7.4, Eos % (Auto) 2.2, Baso % (Auto) 0.5, Absolute Neuts (auto) 7.0, Absolute Lymphs (auto) 1.61, Nucleated RBC % 0, Sodium 134, Potassium 4.2,Chloride 102, Carbon Dioxide 21.5, Anion Gap 11, BUN 13, Creatinine 0.61 L, Estim Creat Clear Calc 97.57, Est GFR (MDRD) Non-Af 105, BUN/Creatinine Ratio 21.5 H, Glucose 148 H, Calcium 9.1 Micro: Microbiology 06/09/24 09:40 Blood Culture (Wb) - Right Forearm Blood Culture - Preliminary No growth in 48 hours. 06/09/24 09:31 Blood Culture (Wb) - Left Hand Blood Culture - Preliminary No growth in 48 hours. 06/09/24 09:25 Urine Catheter - Benson Urine Culture - Preliminary Klebsiella oxytoca Staphylococcus aureus 06/09/24 09:40 Mucosa - Nose SARS-CoV-2, Influenza & RSV (PCR) - Final Physical Exam Narrative General: Alert, answers questions appropriately, no apparent distress HEENT: Atraumatic, normocephalic Eyes: Anicteric Neck: Supple Respiratory: Normal respiratory effort Cardiovascular: Normal rate GI: Soft, nontender, nondistended Extremities: No significant pitting edema Musculoskeletal: Patient chronically wheelchair-bound Neuro: Patient chronically wheelchair-bound Skin: No rashes appreciated Psych: Cooperative Assessment & Plan Assessment/Plan (1) Complicated urinary tract infection: PLAN: Plan # Complicated urinary tract infection in association with chronic indwelling Benson secondary to Klebsiella and Staph aureus -Patient tachycardic with elevated white blood cell count, UA suspicious for UTI -Cultures sent -IV fluids -Will place patient on Levaquin due to previous urinary tract infection sensitivities -06/10: Remains on Levaquin with cultures pending, preliminarily growing gram- negative edward lactose parliamentary librarian, white blood cell count downtrending, patient vitally stable -06/11: Patient on Levaquin which is covering the Klebsiella, patient also now growing Staph aureus without sensitivities pending, if sensitivities are back tomorrow and there is an appropriate oral regimen can likely DC home if not may need ID consult on Thursday if patient requires IV antibiotics, patient verbalizedunderstanding, agreeable to plan Chronic medical problems: # Chronic paraplegia -Supportive care -Occupational Therapy ordered -Treat underlying infection, suspect this will improve functional status -Continue baclofen as tolerated #Hypothyroidism -Continue Synthroid # Chronic decubitus ulcer -Following with Dr. Kay, healing well, continue outpatient follow-up -Will consult wound care while patient admitted #GERD -Continue PPI # Hyperlipidemia -Continue Vascepa if available #DVT ppx: SCDs Juliana Shaw MD Charges/Coding Visit Charges Inpatient E&M: 25180 Subs Hosp L1 06/11/24 1244 Cosigner Signature (if applicable): CC: ~ Signed [facility]03-14-2025 Progress note Author Juliana Shaw [facility] Note Date/Time June 10, 2024 2:2 5pm [facility] Medical Records Department [address] [place] [address] Progress Note - Hospitalist 06/10/24 0859 MR#: [id number] Acct: [id number] Name: JORGE COVINGTON Rep #:[id number] 2 : 1955 68 From: Juliana Shaw MD PCP: Dr. Nathanael Cardona MD Status:AD M IN Location: [address] 1 Reason for Visit Reason for Visit: Diagnoses Urinary tract infection, site not specified (06/09/24) Subjective Subjective Patient beginning to feel much better, more awake and alert, weakness improving Objective Data Objective Data Vital Signs: Vital Signs Temp Pulse Resp BP Pulse Ox O2 Del Method O2 Flow Rate 97.9 F 73 16 115/61 96 Room Air 3 06/10/24 05:32 06/10/24 05:32 06/10/24 05:32 06/10/24 05:32 06/10/24 05:32 06/10/24 05:32 06/09/24 13:38 Oxygen Flow Rate (L/min) 3 Oxygen Delivery Method Room Air Weight: 96.757 kg Body Mass Index (BMI) 34.4 Intake & Output: Intake and Output for Last 24 Hours 06/08/24 06/09/24 06/10/24 23:59 23:59 23:59 Intake Total 750 / 750 400 / 400 Output Total 525 / 525 250 / 250 Balance 225 / 225 150 / 150 Lab / Micro Data 06/10/24 06:36 06/10/24 06:36 Labs: Laboratory Results - last 24 hr 06/09/24 09:10: WBC 18.5 H, RBC 4.73, Hgb 13.6, Hct 41.3, MCV 87.3, MCH 28.8, MCHC 32.9, RDW Std Deviation 52.9 H, RDW Coeff of Josue 16.5 H, Plt Count 310, MPV9.3, Immature Gran % (Auto) 0.700, Neut % (Auto) 85.9 H, Lymph % (Auto) 5.6 L, [place] % (Auto) 6.9, Eos % (Auto) 0.4, Baso % (Auto) 0.5, Absolute Neuts (auto) 15.9 H, Absolute Lymphs (auto) 1.04, Nucleated RBC % 0, Sodium 138, Potassium 4.1, Chloride 103, Carbon Dioxide 22.0, Anion Gap 13, BUN 10, Creatinine 0.67 L,Estim Creat Clear Calc 98.85, Est GFR (MDRD) Non-Af 102, BUN/Creatinine Ratio 15.6, Glucose 149 H, Calcium 9.3, Total Bilirubin 0.29, AST 25, ALT 21, AlkalinePhosphatase 137 H, Total Protein 7.3, Albumin 3.6, Globulin 3.7, Albumin/Globulin Ratio 1.0 06/09/24 09:25: Urine Color Yellow, Urine Clarity Cloudy, Urine pH 7.0, Ur Specific [place] 1.010, Urine Protein 30 H, Urine Glucose (UA) Normal, Urine Ketones Negative, Urine Occult Blood 150 H, Urine Nitrite Positive H, Urine Bilirubin Negative, Urine Urobilinogen Normal, Ur Leukocyte Esterase 500 H, Urine RBC 0-5 SEEN, Urine WBC >100 SEEN, Ur Squamous Epith Cells 0 SEEN, Amorphous Sediment 1+, Urine Bacteria 2+, Urine Mucus 0 SEEN 06/09/24 09:31: Lactic Acid 2.8 H* 06/10/24 06:36: WBC 15.8 H, RBC 4.27 L, Hgb 12.3 L, Hct 38.1 L, MCV 89.2, MCH 28.8, MCHC 32.3, RDW Std Deviation 55.8 H, RDW Coeff of Josue 17.1 H, Plt Count 278, MPV 9.9, Immature Gran % (Auto) 1.400 H, Neut % (Auto) 76.6 H, Lymph % (Auto) 12.1 L, [place] % (Auto) 8.2, Eos % (Auto) 1.4, Baso % (Auto) 0.3, Absolute Neuts (auto) 12.1 H, Absolute Lymphs (auto) 1.90, Nucleated RBC % 0, Sodium 137,Potassium 4.0, Chloride 102, Carbon Dioxide 23.2, Anion Gap 11, BUN 9, Creatinine 0.66 L, Estim Creat Clear Calc 97.57, Est GFR (MDRD) Non-Af 103, BUN/Creatinine Ratio 13.0, Glucose 127 H, Calcium 9.0 Micro: Microbiology 06/09/24 09:40 Mucosa - Nose SARS-CoV-2, Influenza & RSV (PCR) - Final Radiography Diagnostic Testing: Radiology Impression Chest X-Ray 06/09/24 09:12 IMPRESSION: Stable mild increased markings at the lung bases suggestive of scarring. Right apical scarring. Reading Location: [facility] Physical Exam Narrative General: Alert, answers questions appropriately, no apparent distress HEENT: Atraumatic, normocephalic Eyes: Anicteric Neck: Supple Respiratory: Normal respiratory effort Cardiovascular: Normal rate GI: Soft, nontender, nondistended Extremities: No significant pitting edema Musculoskeletal: Patient chronically wheelchair-bound Neuro: Patient chronically wheelchair-bound Skin: No rashes appreciated Psych: Cooperative Assessment & Plan Assessment/Plan (1) Complicated urinary tract infection: PLAN: Plan # Complicated urinary tract infection in association with chronic indwelling Benson -Patient tachycardic with elevated white blood cell count, UA suspicious for UTI -Cultures sent -IV fluids -Will place patient on Levaquin due to previous urinary tract infection sensitivities -06/10: Remains on Levaquin with cultures pending, 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 Kay, healing well, continue outpatient follow-up -Will consult wound care while patient admitted #GERD -Continue PPI # Hyperlipidemia -Continue Vascepa if available #DVT ppx: SCDs Juliana Shaw MD Charges/Coding Visit Charges Inpatient E&M: 34025 Subs Hosp L1 06/10/24 1424 <Electronically signed by Juliana Shaw MD> Cosigner Signature (if applicable): CC: ~ Signed ADDENDUM by Dr. Juliana Shaw MD on 06/10/24 at 1425 Addendum Patient had an episode where there were 2 beats that seem to be a type II block while he was sleeping and another episode a couple hours later, also in the morning where there was 1 beat, these are asymptomatic and has not had any further, monitoring on telemetry but currently no acute indication for intervention, will likely just need to go on an event monitor on discharge, willconsult cardiology if any further concerns or if frequency increases 06/10/24 1425<Electronically signed by Juliana Shaw MD> Cosigner Signature (if applicable): cc: ~* Signed [facility] Work Phone: [phone] Progress note [facility] Medical Records Department [address] [place] [address] Progress Note - Hospitalist 06/10/24 0859 MR#: [id number] Acct: [id number] Name: JORGE COVINGTON Rep #:[id number] 2 : 1955 68 From: Juliana Shaw MD PCP: Dr. Nathanael Cardona MD Status:AD M IN Location: [place] [address] Reason for Visit Reason for Visit: Diagnoses Urinary tract infection, site not specified (06/09/24) Subjective Subjective Patient beginning to feel much better, more awake and alert, weakness improving Objective Data Objective Data Vital Signs: Vital Signs Temp Pulse Resp BP Pulse Ox O2 Del Method O2 Flow Rate 97.9 F 73 16 115/61 96 Room Air 3 06/10/24 05:32 06/10/24 05:32 06/10/24 05:32 06/10/24 05:32 06/10/24 05:32 06/10/24 05:32 06/09/24 13:38 Oxygen Flow Rate (L/min) 3 Oxygen Delivery Method Room Air Weight: 96.757 kg Body Mass Index (BMI) 34.4 Intake & Output: Intake and Output for Last 24 Hours 06/08/24 06/09/24 06/10/24 23:59 23:59 23:59 Intake Total 750 / 750 400 / 400 Output Total 525 / 525 250 / 250 Balance 225 / 225 150 / 150 Lab / Micro Data 06/10/24 06:36 06/10/24 06:36 Labs: Laboratory Results - last 24 hr 06/09/24 09:10: WBC 18.5 H, RBC 4.73, Hgb 13.6, Hct 41.3, MCV 87.3, MCH 28.8, MCHC 32.9, RDW Std Deviation 52.9 H, RDW Coeff of Josue 16.5 H, Plt Count 310, MPV9.3, Immature Gran % (Auto) 0.700, Neut %(Auto) 85.9 H, Lymph % (Auto) 5.6 L, [place] % (Auto) 6.9, Eos % (Auto) 0.4, Baso % (Auto) 0.5, Absolute Neuts (auto) 15.9 H, Absolute Lymphs (auto) 1.04, Nucleated RBC % 0, Sodium 138, Potassium 4.1, Chloride 103, Carbon Dioxide 22.0, Anion Gap 13, BUN 10, Creatinine 0.67 L,Estim Creat Clear Calc 98.85, Est GFR (MDRD) Non-Af 102, BUN/Creatinine Ratio 15.6, Glucose 149 H, Calcium 9.3, Total Bilirubin 0.29, AST 25, ALT 21, AlkalinePhosphatase 137 H, Total Protein 7.3, Albumin 3.6, Globulin 3.7, [place] min/Globulin Ratio 1.0 06/09/24 09:25: Urine Color Yellow, Urine Clarity Cloudy, Urine pH 7.0, Ur Specific [place] 1.010, Urine Protein 30 H, Urine Glucose (UA) Normal, Urine Ketones Negative, Urine Occult Blood 150 H, Urine Nitrite Positive H, Urine Bilirubin Negative, Urine Urobilinogen Normal, Ur Leukocyte Esterase 500 H, Urine RBC 0-5 SEEN, Urine WBC >100 SEEN, Ur Squamous Epith Cells 0 SEEN, Amorphous Sediment 1+, Urine Bacteria 2+, Urine Mucus 0 SEEN 06/09/24 09:31: Lactic Acid 2.8 H* 06/10/24 06:36: WBC 15.8 H, RBC 4.27 L, Hgb 12.3 L, Hct 38.1 L, MCV 89.2, MCH 28.8, MCHC 32.3, RDW Std Deviation 55.8 H, RDW Coeff of Josue 17.1 H, Plt Count 278, MPV 9.9, Immature Gran % (Auto) 1.400 H, Neut % (Auto) 76.6 H, Lymph % (Auto) 12.1 L, [place] % (Auto) 8.2, Eos % (Auto) 1.4, Baso % (Auto) 0.3, Absolute Neuts (auto) 12.1 H, Absolute Lymphs (auto) 1.90, Nucleated RBC % 0, Sodium 137,Potassium 4.0, Chloride 102, Carbon Dioxide 23.2, Anion Gap 11, BUN 9, Creatinine 0.66 L, Estim Creat ClearCalc 97.57, Est GFR (MDRD) Non-Af 103, BUN/Creatinine Ratio 13.0, Glucose 127 H, Calcium 9.0 Micro: Microbiology 06/09/24 09:40 Mucosa - Nose SARS-CoV-2, Influenza & RSV (PCR) - Final Radiography Diagnostic Testing: Radiology Impression Chest X-Ray 06/09/24 09:12 IMPRESSION: Stable mild increased markings at the lung bases suggestive of scarring. Right apical scarring. Reading Location: [facility] Physical Exam Narrative General: Alert, answers questions appropriately, no apparent distress HEENT: Atraumatic, normocephalic Eyes: Anicteric Neck: Supple Respiratory: Normal respiratory effort Cardiovascular: Normal rate GI: Soft, nontender, nondistended Extremities: No significant pitting edema Musculoskeletal: Patient chronically wheelchair-bound Neuro: Patient chronically wheelchair-bound Skin: No rashes appreciated Psych: Cooperative Assessment & Plan Assessment/Plan (1) Complicated urinary tract infection: PLAN: Plan # Complicated urinary tract infection in association with chronic indwelling Benson -Patient tachycardic with elevated white blood cell count, UA suspicious for UTI -Cultures sent -IV fluids -Will place patient on Levaquin due to previous urinary tract infection sensitivities -06/10: Remains on Levaquin with cultures pending, 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 Kay, healing well, continue outpatient follow-up -Will consult wound care while patient admitted #GERD -Continue PPI # Hyperlipidemia -Continue Vascepa if available #DVT ppx: SCDs Juliana Shaw MD Charges/Coding Visit Charges Inpatient E&M: 17675 Subs Hosp L1 06/10/24 1424 Cosigner Signature (if applicable): CC: ~ Signed ADDENDUM by Dr. Juliana Shaw MD on 06/10/24 at 1425 Addendum Patient had an episode where there were 2 beats that seem to be a type II block while he was sleeping and another episode a couple hours later, also in the morning where there was 1 beat, these are asymptomatic and has not had any further, monitoring on telemetry but currently no acute indication for intervention, will likely just need to go on an event monitor on discharge, willconsult cardiology if any further concerns or if frequency increases 06/10/241424 Cosigner Signature (if applicable): cc: ~* Signed [facility]03-13-2025 History and physical note Author Juliana Shaw [facility] Note Date/Time June 09, 2024 12: 16pm [facility] Medical Records Department [address] [place] [address] H&P Exam - Hospitalist 06/09/24 1206 MR#: [id number] Acct: [id number] Name: JORGE COVINGTON Rep #:[id number] : 1955 68 From: Juliana Shaw MD PCP: Dr. Nathanael Cardona MD Status:RE G ER Location: ED HPI - General General Date of Admission: 06/09/24 Date of Service: 06/09/24 Chief Complaint: Fever HPI Narrative JORGE COVINGTON, is a 68 M with history of paraplegia, COPD, hypothyroidism, chronic indwelling Benson who presented [facility] ED 06/09/2024 with 1 day of weakness, diarrhea and fever. Ultimately he called EMS today because he was too weak to transfer with his wheelchair. EMS reported patient was hypoxic and put him on nasal cannula, he was also febrile, on arrival to theED patient with temperature of 102, heart rate 112 with blood pressure 125/57, lactic acid 2.8, respiratory rate 22 and patient 93% on room air. White blood cell count 18 and UA suggestive of UTI, patient started on antibiotics and hospitalist contacted for admission. Patient evaluated at bedside, reports thatsince yesterday he had a temperature spike to 101, has been diffusely weak, alsohad some diarrhea but otherwise grider negative ROS. [facility], [facility] Medical History Other acute postprocedural pain Paraplegic spinal paralysis History of pressure ulcer Wears glasses Thyroid disease Arthritis Uses wheelchair High cholesterol Gastric reflux COPD (chronic obstructive pulmonary disease) Hx of fracture of arm Hx of head injury Bedridden Smoker Right ischial pressure sore, stage 4 Home Medications ?Medication ?Instructions ?Recorded ?Last Taken ?Type baclofen 10 mg tablet 15 mg PO TID spasm 12/17/17 06/09/24 History levothyroxine 125 mcg tablet 125 mcg PO DAILY 12/17/17 06/09/24 History tamsulosin 0.4 mg capsule 0.4 mg PO BID 12/17/1706/09 History icosapent ethyl 1 gram capsule 2 g PO BID cholesterol 02/08/22 06/09/24 History (Vascepa) acetaminophen 650 mg 1,300 mg PO Q8H PRN Pain Unknown History tablet,extended release esomeprazole magnesium 40 mg 40 mg PO DAILY 06/16/22 0 06/09/24 History capsule,delayed release (Nexium) Allergy/AdvReac Type Severity Reaction Status Date / Time Environmental Allergies: Allergy NEEDS Verified 06/03/24 14:20 Uncoded (dust) FOLLOW-UP house dust Allergy Other Verified 06/03/24 14:20 pollen extracts Allergy NEEDS Verified 06/03/24 14:20 FOLLOW-UP Surgical History S/P colostomy History of back surgery Hx of neck surgery Hx of spinal surgery Social History Smoking Status: Former smoker ROS ROS Narrative General: Fever for 1 day HENT: Denies headache, denies stuffy nose, denies sore throat EYES: Denies changes in vision Resp: Denies cough, denies shortness of breath Cardiac: Denies chest pain GI: Denies abdominal pain, had some loose stools, denies nausea/vomiting : Chronic indwelling Benson Extremity: Denies swelling MSK: Cannot walk chronically, generalized weakness Neuro: Denies any new numbness/tingling Heme: Denies any bleeding or bruising Skin: Denies rashes Psychiatric: No complaints voiced Vital Signs Vital Signs Vital Signs: 06/09/24 09:00 06/09/24 09:05 06/09/24 09:15 Temperature 98.8 F 102.0 F H Temperature Source Oral Axillary Pulse Rate 112 H Respiratory Rate 22 H Respiratory Effort Short of Breath Respiratory Depth Shallow Respiratory Pattern Normal Blood Pressure 125/57 H Blood Pressure Mean 79 Pulse Ox 93 Oxygen Delivery Method Room Air Room Air Oxygen Flow Rate (L/min) 06/09/24 10:05 06/09/24 11:00 Temperature 100.1 F H 98.9 F Temperature Source Axillary Oral Pulse Rate 101 H 103 H Respiratory Rate 21 H 19 H Respiratory Effort Respiratory Depth Respiratory Pattern Blood Pressure 128/67 H 132/66 H Blood Pressure Mean 87 88 Pulse Ox 100 98 Oxygen Delivery Method Nasal Cannula Oxygen Flow Rate (L/min) 2 2 Weight Weight: 99.3 kg Body Mass Index (BMI) 35.3 Physical Exam Narrative General: Alert, answers questions appropriately, no apparent distress HEENT: Atraumatic, normocephalic Eyes: Anicteric Neck: Supple Respiratory: Some fine crackles at the bases with no overt wheezes or rhonchi, normal respiratory effort Cardiovascular: Mild low-grade sinus tachycardia GI: Soft, nontender, nondistended Extremities: No significant pitting edema Musculoskeletal: Patient chronically wheelchair-bound Neuro: Patient chronically wheelchair-bound Skin: No rashes appreciated Psych: Cooperative Results Lab / Micro Data 06/09/24 09:10 06/09/24 09:10 Labs: Laboratory Results - last 24 hr 06/09/24 09:10: WBC 18.5 H, RBC 4.73, Hgb 13.6, Hct 41.3, MCV 87.3, MCH 28.8, MCHC 32.9, RDW Std Deviation 52.9 H, RDW Coeff of Josue 16.5 H, Plt Count 310, MPV9.3, Immature Gran % (Auto) 0.700, Neut % (Auto) 85.9 H, Lymph % (Auto) 5.6 L, [place] % (Auto) 6.9, Eos % (Auto) 0.4, Baso % (Auto) 0.5, Absolute Neuts (auto) 15.9 H, Absolute Lymphs (auto) 1.04, Nucleated RBC % 0, Sodium 138, Potassium 4.1, Chloride 103, Carbon Dioxide 22.0, Anion Gap 13, BUN 10, Creatinine 0.67 L,Estim Creat Clear Calc 98.85, Est GFR (MDRD) Non-Af 102, BUN/Creatinine Ratio 15.6, Glucose 149 H, Calcium 9.3, Total Bilirubin 0.29, AST 25, ALT 21, AlkalinePhosphatase 137 H, Total Protein 7.3, Albumin 3.6, Globulin 3.7, Albumin/Globulin Ratio 1.0 06/09/24 09:25: Urine Color Yellow, Urine Clarity Cloudy, Urine pH 7.0, Ur Specific [place] 1.010, Urine Protein 30 H, Urine Glucose (UA) Normal, Urine Ketones Negative, Urine Occult Blood 150 H, Urine Nitrite Positive H, Urine Bilirubin Negative, Urine Urobilinogen Normal, Ur Leukocyte Esterase 500 H, Urine RBC 0-5 SEEN, Urine WBC >100 SEEN, Ur Squamous Epith Cells 0 SEEN, Amorphous Sediment 1+, Urine Bacteria 2+, Urine Mucus 0 SEEN 06/09/24 09:31: Lactic Acid 2.8 H* Micro: Microbiology 06/09/24 09:40 Mucosa - Nose SARS-CoV-2, Influenza & RSV (PCR) - Final Imaging Radiology Impression Chest X-Ray 06/09/24 09:12 IMPRESSION: Stable mild increased markings at the lung bases suggestive of scarring. Right apical scarring. Reading Location: [id number] Assessment & Plan Assessment/Plan (1) Complicated urinary tract infection: PLAN: Plan # Complicated urinary tract infection in association with chronic indwelling Benson -Patient tachycardic with elevated white blood cell count, UA suspicious for UTI -Cultures sent -IV fluids -Will place patient on Levaquin due to previous urinary tract infection sensitivities # Chronic paraplegia -Supportive care -Occupational Therapy ordered -Treat underlying infection, suspect this will improve functional status -Continue baclofen as tolerated #Hypothyroidism -Continue Synthroid # Chronic decubitus ulcer -Following with Dr. Kay, healing well, continue outpatient follow-up -Will consult wound care while patient admitted #GERD -Continue PPI # Hyperlipidemia -Continue Vascepa if available #DVT ppx: SCDs Juliana Shaw MD Time spent in the patient's overall evaluation, decision-making process, review of diagnostic data, adjustment of management, discussion with other providers, nursing and ancillary staff involved in patient's care documentation, 57 Minutes Charges/Coding Visit Charges Inpatient E&M: 16406 Init Hosp L2 06/09/24 1216 <Electronically signed by Juliana Shaw MD> Cosigner Signature (if applicable): CC: Dr. Juliana Shaw MD; Dr. Nathanael Cardona MD~ Signed [facility] Work Phone: [phone] Discharge summary Author Hebert Saavedra [facility] Note Date/Time June 09, 2024 11: 32am [facility] Medical Records Department [address] [place] [address] Emergency Department Summary 06/09/24 MR#: [id number] Acct: [id number] Name: JORGE COVINGTON Rep #:[id number] : 1955 68 From: Hebert Saavedra MD PCP: Dr. Nathanael Cardona MD Status:RE G ER Location: ED HPI History of Present Illness Chief Complaint: Shortness of Breath Detail of Chief Complaint: Squad was called for lift assist. He was noted to behypoxic, febrile, tac Informant: patient and EMS Onset/Context/Timing Onset: Today Context: Sudden Onset Timing: Intermittent Quality: Called for lift assist Location: Presents from home Current Severity: Not applicable Maximum Severity: Not applicable Worsened by: Patient has been bedridden since 1984 Relieved by: Not applicable Associated Symptoms Associated Symptoms: Per squad febrile, tachycardic and tachypneic with a low pulse ox Narrative Narrative: Patient is a 68-year-old male. He is paraplegic due to spinal paralysis. He has been bedridden since 1984. He has a nonhealing ulcer right buttocks near the gluteal crease. He states his looked at the wound earlier this morning. He was last seen at the wound center on Thursday. He was a smoker until 1 year ago. Squad documented temperature of 101.3, pulse ox of 80% on room air, tachycardia and tachypnea and reason they transported him. Patient denied history of COPD however there is a past history of AFINOS that he has history of COPD. He states he is not normally on oxygen. Patient denies fever or chills. He denies headache, visual, ocular auditory symptoms. He denies rhinorrhea, congestion postnasal drainage sore throat. He denies cough. He denies chest discomfort. Patient Nuys abdominal pain, nausea, vomiting or diarrhea. Patient denies dysuria, frequency, urgency or hematuria. This is not surprisingsince pain has an indwelling Benson. Prior similar symptoms: Yes Recent Illness/Hospitalization: No PFSH PFS Medical History Other acute postprocedural pain Paraplegic spinal paralysis History of pressure ulcer Wears glasses Thyroid disease Arthritis Uses wheelchair High cholesterol Gastric reflux COPD (chronic obstructive pulmonary disease) Hx of fracture of arm Hx of head injury Bedridden Smoker Right ischial pressure sore, stage 4 Home Medications ?Medication ?Instructions ?Recorded ?Last Taken ?Type baclofen 10 mg tablet 15 mg PO TID spasm 12/17/17 06/09/24 History levothyroxine 125 mcg tablet 125 mcg PO DAILY 12/17/17 06/09/24 History tamsulosin 0.4 mg capsule 0.4 mg PO BID 12/17/1706/09 History icosapent ethyl 1 gram capsule 2 g PO BID cholesterol 02/08/22 06/09/24 History (Vascepa) acetaminophen 650 mg 1,300 mg PO Q8H PRN Pain Unknown History tablet,extended release esomeprazole magnesium 40 mg 40 mg PO DAILY 06/16/22 0 06/09/24 History capsule,delayed release (Nexium) Allergy/AdvReac Type Severity Reaction Status Date / Time Environmental Allergies: Allergy NEEDS Verified 06/03/24 14:20 Uncoded (dust) FOLLOW-UP house dust Allergy Other Verified 06/03/24 14:20 pollen extracts Allergy NEEDS Verified 06/03/24 14:20 FOLLOW-UP Surgical History S/P colostomy History of back surgery Hx of neck surgery Hx of spinal surgery Social History Smoking Status: Former smoker ROS ROS ED Constitutional Constitutional ED: Denies chills, fever(s), subjective or sweats Eyes Eyes: Denies blurry vision or change in vision ENT ENT ED: Denies ear pain, rhinorrhea or sore throat Cardiovascular Cardiovascular: Denies chest pain, orthopnea or palpitations Respiratory/Chest Respiratory/Chest: Denies cough, dyspnea, dyspnea on exertion or orthopnea Gastrointestinal Gastrointestinal: Denies abdominal pain, diarrhea, nausea or vomiting Genitourinary Genitourinary ED: Reports other Details: Patient has an indwelling Benson. Musculoskeletal Musculoskeletal: Denies arthralgias or myalgias Integumentary Reports other Details: Decubitus ulcer down to muscle right medial superior buttocks area. Neurologic Neurologic: Reports weakness; Denies headache(s) or paresthesias Hematologic/Lymphatic Hematologic/Lymphatic: Reports systems reviewed and no addt'l complaints, exceptas documented EXAM Physical Exam Const Vital Signs: 06/09/24 09:00 06/09/24 09:05 06/09/24 09:15 Temperature 98.8 F 102.0 F H Temperature Source Oral Axillary Pulse Rate 112 H Respiratory Rate 22 H Respiratory Effort Short of Breath Respiratory Depth Shallow Respiratory Pattern Normal Blood Pressure 125/57 H Blood Pressure Mean 79 Pulse Ox 93 Oxygen Delivery Method Room Air Room Air Oxygen Flow Rate (L/min) 06/09/24 10:05 06/09/24 11:00 Temperature 100.1 F H 98.9 F Temperature Source Axillary Oral Pulse Rate 101 H 103 H Respiratory Rate 21 H 19 H Respiratory Effort Respiratory Depth Respiratory Pattern Blood Pressure 128/67 H 132/66 H Blood Pressure Mean 87 88 Pulse Ox 100 98 Oxygen Delivery Method Nasal Cannula Oxygen Flow Rate (L/min) 2 2 Positive well nourished and well developed Constitutional Narrative: BMI is 35.3. Patient is tachypneic. General Appearance ED: well developed and pallor; Negative for cyanotic, diaphoretic or NAD HEENT Reports TM's clear and dry mucous membranes Negative for trauma or tenderness Tympanic Membrane ED: Yes TM's clear Mouth ED: Yes dry mucous membranes Mouth: dry mucous membranes Eyes PERRL and EOMs intact bilaterally General Eye ED: Negative for pale conjunctiva or scleral icterus Neck no lymphadenopathy, supple and no JVD Neck Narrative: Attempt to assess for JVD is difficult due to body habitus. Chest Wall inspection of chest normal and palpation of chest normal Resp normal respiratory effort and clear to auscultation bilaterally Cardio regular rhythm, S1 normal heart sound, S2 normal heart sound and no murmurs Rate: tachycardic GI normal to inspection, nondistended, normoactive bowel sounds, non-tender, non-distended and no masses; Negative for hepatosplenomegaly Narrative: Patient has indwelling Benson. Back/Spine no CVA tenderness Extremity Negative for normal to inspection Extremity Narrative: Patient has braces on his lower extremities due to his paraplegia. There is no asymmetry, discoloration, leg vein distention, palpable cords tenderness on the distribution deep venous system. Neuro oriented x3 and CN's II-XII intact bilaterally Neuro Narrative: Patient is awake but not alert. Sensorium / Orientation: Negative for alert Psych mental status grossly normal Skin Skin Narrative: Patient has a wound right buttocks. There is a fresh gauze noted in it. The wound is healing by secondary intention with granulation tissue noted. There isno discharge. There is no odor. There is slight erythema without warmth or induration. There is no fluctuance. General Skin Exam: pallor Sepsis Attestation Sepsis Alert: Yes Sepsis Attestation: Agree w/Sepsis Date exam was performed: 06/09/24 Time exam was performed: 09:20 (Patient has tachycardia, tachypnea and repeat temperature is 102.0. In light of this blood cultures and lactate were ordered. There is no obvious source at this time. Once source has been identified will treat with appropriate antibiotics.) Possible Source of Sepsis: Genitourinary Sepsis Organ Dysfunction Criteria Present: Lactic Acid > 2 mmol/L MDM MDM MDM Narrative Medical decision making narrative: Initial vitals reveal tachycardia and tachypnea. He had a normal temperature. Wound is repeated since he felt warmer than document temperature I was informed at 0915 that it is 102.0 ?F. Blood cultures were added as well as lactate. Source does not appear to be his decubitus ulcer right buttocks. Clinically he does not have pneumonia. His pulse ox is 93 on room air. His urine is turbid which may be due to chronic indwelling Benson. This could be his source. Patient does meet criteria for SIRS. Will obtain appropriate blood work to assess for sepsis and endorgan dysfunction. History & Record Review Additional record(s) reviewed:: Prior ED visit and Prior labs Lab Data Attestation: I reviewed the patient's lab results. Lab results narrative: White count is elevated 18.5 thousand. Patient does have a shift with no bandemia. Comprehensive metabolic panel is unremarkable. Alkaline phosphatase slightly elevated 137. Urine appears to be the source with greater than 100 WBCs and 2+ bacteria. Macro was positive for leukoesterase nitrites as well as occult blood. There is also proteinuria noted. Lactate is elevated at 2.8. Labs: Laboratory Results - last 24 hr 06/09/24 06/09/24 06/09/24 09:10 09:25 09:31 WBC 18.5 H RBC 4.73 Hgb 13.6 Hct 41.3 MCV 87.3 MCH 28.8 MCHC 32.9 RDW Std Deviation 52.9 H RDW Coeff of Josue 16.5 H Plt Count 310 MPV 9.3 Immature Gran % (Auto) 0.700 Neut % (Auto) 85.9 H Lymph % (Auto) 5.6 L [place] % (Auto) 6.9 Eos % (Auto) 0.4 Baso % (Auto) 0.5 Absolute Neuts (auto) 15.9 H Absolute Lymphs (auto) 1.04 Nucleated RBC % 0 Sodium 138 Potassium 4.1 Chloride 103 Carbon Dioxide 22.0 Anion Gap 13 BUN 10 Creatinine 0.67 L Estim Creat Clear Calc 98.85 Est GFR (MDRD) Non-Af 102 BUN/Creatinine Ratio 15.6 Glucose 149 H Lactic Acid 2.8 H* Calcium 9.3 Total Bilirubin 0.29 AST 25 ALT 21 Alkaline Phosphatase 137 H Total Protein 7.3 Albumin 3.6 Globulin 3.7 Albumin/Globulin Ratio 1.0 Urine Color Yellow Urine Clarity Cloudy Urine pH 7.0 Ur Specific [place] 1.010 Urine Protein 30 H Urine Glucose (UA) Normal Urine Ketones Negative Urine Occult Blood 150 H Urine Nitrite Positive H Urine Bilirubin Negative Urine Urobilinogen Normal Ur Leukocyte Esterase 500 H Urine RBC 0-5 SEEN Urine WBC >100 SEEN Ur Squamous Epith Cells 0 SEEN Amorphous Sediment 1+ Urine Bacteria 2+ Urine Mucus 0 SEEN Radiography Chest X-Ray - ED: 2 View, Read by ED Physician, Unchanged, Normal, Heart, Mediastinum, Chronic Changes and - (There is no effusion. Suboptimal due to rotation and limited inspiration. There is family reviewed interpreted by tx [email or web address].) Diagnostic Testing: Clinical Impression(s) from Imaging Studies Chest X-Ray 06/09/24 09:12 IMPRESSION: Stable mild increased markings at the lung bases suggestive of scarring. Right apical scarring. Reading Location: [id number] Management Discussion w/another healthcare provider: Hospitalist (Spoke with Dr. Shaw. She will see patient in the ER. Full admit PCU) Treatment and Re-Evaluation :: Since there is concern patient has sepsis and source is either respiratory or urologic patient received 2 g of Rocephin which will cover both respiratory and urologic pathogens. If it is pneumonia we will add azithromycin for atypical coverage since she presents from home. Comments:: [employer] was asked to page the hospitalist at [phone]. Discharge Plan Dx/Rx/DC Orders Clinical Impression: Complicated urinary tract infection, Bedridden, Paraplegic spinal paralysis, Colostomy in place, Hyperlipidemia, Spinal cord injury, SIRS (systemic inflammatory response syndrome), Leukocytosis, Decubitus ulcer of right buttock,stage 3, Acidosis, lactic Disposition Disposition: Acute Care [facility] What to do if you have Problems For any increased pain, shortness of breath, bleeding, nausea or vomiting, chestpain, or any unexpected problems, contact your Primary Care Provider. Call [facility] ([phone]) or report to the closest Emergency Room. Call 911 if necessary. 06/09/24 1132 <Electronically signed by Hebert Saavedra MD> Cosigner Signature (if applicable): CC: Dr. Nathanael Cardona MD ~ Signed [facility] Work Phone: [phone] History and physical note [facility] Medical Records Department [address] [place] [id number] H&P Exam - Hospitalist 06/09/24 1206 MR#: [id number] Acct: [id number] Name: JORGE COVINGTON Rep #:[id number] : 1955 68 From: Juliana Shaw MD PCP: Dr. Nathanael Cardona MD Status:RE G ER Location: ED HPI - General General Date of Admission: 06/09/24 Date of Service: 06/09/24 Chief Complaint: Fever HPI Narrative JORGE COVINGTON, is a 68 M with history of paraplegia, COPD, hypothyroidism, chronic indwelling Benson who presented [facility] ED 06/09/2024 with 1 day of weakness, diarrhea and fever.Ultimately he called EMS today because he was too weak to transfer with his wheelchair. EMS reported patient was hypoxic and put him on nasal cannula, he was also febrile, on arrival to theED patientwith temperature of 102, heart rate 112 with blood pressure 125/57, lactic acid 2.8, respiratory rate 22 and patient 93% on room air. White blood cell count 18 and UA suggestive of UTI, patient started on antibiotics and hospitalist contacted for admission. Patient evaluated at bedside, reports that since yesterday he had a temperature spike to 101, has been diffusely weak, alsohad some diarrhea but otherwise grider negative ROS. [facility] Medical History Other acute postprocedural pain Paraplegic spinal paralysis History of pressure ulcer Wears glasses Thyroid disease Arthritis Uses wheelchair High cholesterol Gastric reflux COPD (chronic obstructive pulmonary disease) Hx of fracture of arm Hx of head injury Bedridden Smoker Right ischial pressure sore, stage 4 Home Medications ?Medication ?Instructions ?Recorded ?Last Taken ?Type baclofen 10 mg tablet 15 mg PO TID spasm 12/17/17 06/09/24 History levothyroxine 125 mcg tablet 125 mcg PO DAILY 12/17/17 06/09/24 History tamsulosin 0.4 mg capsule 0.4 mg PO BID 12/17/1706/09 History icosapent ethyl 1 gram capsule 2 g PO BID cholesterol 02/08/22 06/09/24 History (Vascepa) acetaminophen 650 mg 1,300 mg PO Q8H PRN Pain Unknown History tablet,extended release esomeprazole magnesium 40 mg 40 mg PO DAILY 06/16/22 0 06/09/24 History capsule,delayed release (Nexium) Allergy/AdvReac Type Severity Reaction Status Date / Time Environmental Allergies: Allergy NEEDS Verified 06/03/24 14:20 Uncoded (dust) FOLLOW-UP house dust Allergy Other Verified 06/03/24 14:20 pollen extracts Allergy NEEDS Verified 06/03/24 14:20 FOLLOW-UP Surgical History S/P colostomy History of back surgery Hx of neck surgery Hx of spinal surgery Social History Smoking Status: Former smoker ROS ROS Narrative General: Fever for 1 day HENT: Denies headache, denies stuffy nose, denies sore throat EYES: Denies changes in vision Resp: Denies cough, denies shortness of breath Cardiac: Denies chest pain GI: Denies abdominal pain, had some loose stools, denies nausea/vomiting : Chronic indwelling Benson Extremity: Denies swelling MSK: Cannot walk chronically, generalized weakness Neuro: Denies any new numbness/tingling Heme: Denies any bleeding or bruising Skin: Denies rashes Psychiatric: No complaints voiced Vital Signs Vital Signs Vital Signs: 06/09/24 09:00 06/09/24 09:05 06/09/24 09:15 Temperature 98.8 F 102.0 F H Temperature Source Oral Axillary Pulse Rate 112 H Respiratory Rate 22 H Respiratory Effort Short of Breath Respiratory Depth Shallow Respiratory Pattern Normal Blood Pressure 125/57 H Blood Pressure Mean 79 Pulse Ox 93 Oxygen Delivery Method Room Air Room Air Oxygen Flow Rate (L/min) 06/09/24 10:05 06/09/24 11:00 Temperature 100.1 F H 98.9 F Temperature Source Axillary Oral Pulse Rate 101 H 103 H Respiratory Rate 21 H 19 H Respiratory Effort Respiratory Depth Respiratory Pattern Blood Pressure 128/67 H 132/66 H Blood Pressure Mean 87 88 Pulse Ox 100 98 Oxygen Delivery Method Nasal Cannula Oxygen Flow Rate (L/min) 2 2 Weight Weight: 99.3 kg Body Mass Index (BMI) 35.3 Physical Exam Narrative General: Alert, answers questions appropriately, no apparent distress HEENT: Atraumatic, normocephalic Eyes: Anicteric Neck: Supple Respiratory: Some fine crackles at the bases with no overt wheezes or rhonchi, normal respiratory effort Cardiovascular: Mild low-grade sinus tachycardia GI: Soft, nontender, nondistended Extremities: No significant pitting edema Musculoskeletal: Patient chronically wheelchair-bound Neuro: Patient chronically wheelchair-bound Skin: No rashes appreciated Psych: Cooperative Results Lab / Micro Data 06/09/24 09:10 06/09/24 09:10 Labs: Laboratory Results - last 24 hr 06/09/24 09:10: WBC 18.5 H, RBC 4.73, Hgb 13.6, Hct 41.3, MCV 87.3, MCH 28.8, MCHC 32.9, RDW Std Deviation 52.9 H, RDW Coeff of Josue 16.5 H, Plt Count 310, MPV9.3, Immature Gran % (Auto) 0.700, Neut %(Auto) 85.9 H, Lymph % (Auto) 5.6 L, [place] % (Auto) 6.9, Eos % (Auto) 0.4, Baso % (Auto) 0.5, Absolute Neuts (auto) 15.9 H, Absolute Lymphs (auto) 1.04, Nucleated RBC % 0, Sodium 138, Potassium 4.1, Chloride 103, Carbon Dioxide 22.0, Anion Gap 13, BUN 10, Creatinine 0.67 L,Estim Creat Clear Calc 98.85, Est GFR (MDRD) Non-Af 102, BUN/Creatinine Ratio 15.6, Glucose 149 H, Calcium 9.3, Total Bilirubin 0.29, AST 25, ALT 21, AlkalinePhosphatase 137 H, Total Protein 7.3, Albumin 3.6, Globulin 3.7, [place] min/Globulin Ratio 1.0 06/09/24 09:25: Urine Color Yellow, Urine Clarity Cloudy, Urine pH 7.0, Ur Specific [place] 1.010, Urine Protein 30 H, Urine Glucose (UA) Normal, Urine Ketones Negative, Urine Occult Blood 150 H, Urine Nitrite Positive H, Urine Bilirubin Negative, Urine Urobilinogen Normal, Ur Leukocyte Esterase 500 H, Urine RBC 0-5 SEEN, Urine WBC >100 SEEN, Ur Squamous Epith Cells 0 SEEN, Amorphous Sediment 1+, Urine Bacteria 2+, Urine Mucus 0 SEEN 06/09/24 09:31: Lactic Acid 2.8 H* Micro: Microbiology 06/09/24 09:40 Mucosa - Nose SARS-CoV-2, Influenza & RSV (PCR) - Final Imaging Radiology Impression Chest X-Ray 06/09/24 09:12 IMPRESSION: Stable mild increased markings at the lung bases suggestive of scarring. Right apical scarring. Reading Location: [id number] Assessment & Plan Assessment/Plan (1) Complicated urinary tract infection: PLAN: Plan # Complicated urinary tract infection in association with chronic indwelling Benson -Patient tachycardic with elevated white blood cell count, UA suspicious for UTI -Cultures sent -IV fluids -Will place patient on Levaquin due to previous urinary tract infection sensitivities # Chronic paraplegia -Supportive care -Occupational Therapy ordered -Treat underlying infection, suspect this will improve functional status -Continue baclofen as tolerated #Hypothyroidism -Continue Synthroid # Chronic decubitus ulcer -Following with Dr. Kay, healing well, continue outpatient follow-up -Will consult wound care while patient admitted #GERD -Continue PPI # Hyperlipidemia -Continue Vascepa if available #DVT ppx: SCDs Juliana Shaw MD Time spent in the patient's overall evaluation, decision-making process, review of diagnostic data,adjustment of management, discussion with other providers, nursing and ancillary staff involved in patient's care documentation, 57 Minutes Charges/Coding Visit Charges Inpatient E&M: 71545 Init Hosp L2 06/09/24 1216 Cosigner Signature (if applicable): CC: Dr. Juliana Shaw MD; Dr. Nathanael Cardona MD~ Signed [facility]03-13-2025 Discharge summary [facility] Medical Records Department [address] [place] [address] Emergency Department Summary 06/09/24 MR#: [id number] Acct: [id number] Name: JORGE COVINGTON Rep #:[id number] : 1955 68 From: Hebert Saavedra MD PCP: Dr. Nathanael Cardona MD Status:RE G ER Location: ED HPI History of Present Illness Chief Complaint: Shortness of Breath Detail of Chief Complaint: Squad was called for lift assist. He was noted to behypoxic, febrile, tac Informant: patient and EMS Onset/Context/Timing Onset: Today Context: Sudden Onset Timing: Intermittent Quality: Called for lift assist Location: Presents from home Current Severity: Not applicable Maximum Severity: Not applicable Worsened by: Patient has been bedridden since 1984 Relieved by: Not applicable Associated Symptoms Associated Symptoms: Per squad febrile, tachycardic and tachypneic with a low pulse ox Narrative Narrative: Patient is a 68-year-old male. He is paraplegic due to spinal paralysis. He has been bedridden since 1984. He has a nonhealing ulcer right buttocks near the gluteal crease. He states his looked at the wound earlier this morning. He was last seen at the wound center on Thursday. He was a smoker until 1 year ago. Squad documented temperature of 101.3, pulse ox of 80% on room air, tachycardia and tachypnea and reason they transported him. Patient denied history of COPD however there is a past history of AFINOS that he has history of COPD. He states he is not normally on oxygen. Patient denies fever or chills. He denies headache, visual, ocular auditory symptoms. He denies rhinorrhea, congestion postnasal drainage sore throat. He denies cough. He denies chest discomfort. Patient Nuys abdominal pain, nausea, vomiting or diarrhea. Patient denies dysuria, frequency, urgency or hematuria. This is not surprisingsince pain has an indwelling Benson. Prior similar symptoms: Yes Recent Illness/Hospitalization: No PFSH [facility] Medical History Other acute postprocedural pain Paraplegic spinal paralysis History of pressure ulcer Wears glasses Thyroid disease Arthritis Uses wheelchair High cholesterol Gastric reflux COPD (chronic obstructive pulmonary disease) Hx of fracture of arm Hx of head injury Bedridden Smoker Right ischial pressure sore, stage 4 Home Medications ?Medication ?Instructions ?Recorded ?Last Taken ?Type baclofen 10 mg tablet 15 mg PO TID spasm 12/17/17 06/09/24 History levothyroxine 125 mcg tablet 125 mcg PO DAILY 12/17/17 06/09/24 History tamsulosin 0.4 mg capsule 0.4 mg PO BID 12/17/1706/09 History icosapent ethyl 1 gram capsule 2 g PO BID cholesterol 02/08/22 06/09/24 History (Vascepa) acetaminophen 650 mg 1,300 mg PO Q8H PRN Pain Unknown History tablet,extended release esomeprazole magnesium 40 mg 40 mg PO DAILY 06/16/22 0 06/09/24 History capsule,delayed release (Nexium) Allergy/AdvReac Type Severity Reaction Status Date / Time Environmental Allergies: Allergy NEEDS Verified 06/03/24 14:20 Uncoded (dust) FOLLOW-UP house dust Allergy Other Verified 06/03/24 14:20 pollen extracts Allergy NEEDS Verified 06/03/24 14:20 FOLLOW-UP Surgical History S/P colostomy History of back surgery Hx of neck surgery Hx of spinal surgery Social History Smoking Status: Former smoker ROS ROS ED Constitutional Constitutional ED: Denies chills, fever(s), subjective or sweats Eyes Eyes: Denies blurry vision or change in vision ENT ENT ED: Denies ear pain, rhinorrhea or sore throat Cardiovascular Cardiovascular: Denies chest pain, orthopnea or palpitations Respiratory/Chest Respiratory/Chest: Denies cough, dyspnea, dyspnea on exertion or orthopnea Gastrointestinal Gastrointestinal: Denies abdominal pain, diarrhea, nausea or vomiting Genitourinary Genitourinary ED: Reports other Details: Patient has an indwelling Benson. Musculoskeletal Musculoskeletal: Denies arthralgias or myalgias Integumentary Reports other Details: Decubitus ulcer down to muscle right medial superior buttocks area. Neurologic Neurologic: Reports weakness; Denies headache(s) or paresthesias Hematologic/Lymphatic Hematologic/Lymphatic: Reports systems reviewed and no addt'l complaints, exceptas documented EXAM Physical Exam Const Vital Signs: 06/09/24 09:00 06/09/24 09:05 06/09/24 09:15 Temperature 98.8 F 102.0 F H Temperature Source Oral Axillary Pulse Rate 112 H Respiratory Rate 22 H Respiratory Effort Short of Breath Respiratory Depth Shallow Respiratory Pattern Normal Blood Pressure 125/57 H Blood Pressure Mean 79 Pulse Ox 93 Oxygen Delivery Method Room Air Room Air Oxygen Flow Rate (L/min) 06/09/24 10:05 06/09/24 11:00 Temperature 100.1 F H 98.9 F Temperature Source Axillary Oral Pulse Rate 101 H 103 H Respiratory Rate 21 H 19 H Respiratory Effort Respiratory Depth Respiratory Pattern Blood Pressure 128/67 H 132/66 H Blood Pressure Mean 87 88 Pulse Ox 100 98 Oxygen Delivery Method Nasal Cannula Oxygen Flow Rate (L/min) 2 2 Positive well nourished and well developed Constitutional Narrative: BMI is 35.3. Patient is tachypneic. General Appearance ED: well developed and pallor; Negative for cyanotic, diaphoretic or NAD HEENT Reports TM's clear and dry mucous membranes Negative for trauma or tenderness Tympanic Membrane ED: Yes TM's clear Mouth ED: Yes dry mucous membranes Mouth: dry mucous membranes Eyes PERRL and EOMs intact bilaterally General Eye ED: Negative for pale conjunctiva or scleral icterus Neck no lymphadenopathy, supple and no JVD Neck Narrative: Attempt to assess for JVD is difficult due to body habitus. Chest Wall inspection of chest normal and palpation of chest normal Resp normal respiratory effort and clear to auscultation bilaterally Cardio regular rhythm, S1 normal heart sound, S2 normal heart sound and no murmurs Rate: tachycardic GI normal to inspection, nondistended, normoactive bowel sounds, non-tender, non- distended and no masses; Negative for hepatosplenomegaly Narrative: Patient has indwelling Benson. Back/Spine no CVA tenderness Extremity Negative for normal to inspection Extremity Narrative: Patient has braces on his lower extremities due to his paraplegia. There is no asymmetry, discoloration, leg vein distention, palpable cords tenderness on the distribution deep venous system. Neuro oriented x3 and CN's II-XII intact bilaterally Neuro Narrative: Patient is awake but not alert. Sensorium / Orientation: Negative for alert Psych mental status grossly normal Skin Skin Narrative: Patient has a wound right buttocks. There is a fresh gauze noted in it. The wound is healing by secondary intention with granulation tissue noted. There isno discharge. There is no odor. There is slight erythema without warmth or induration. There is no fluctuance. General Skin Exam: pallor Sepsis Attestation Sepsis Alert: Yes Sepsis Attestation: Agree w/Sepsis Date exam was performed: 06/09/24 Time exam was performed: 09:20 (Patient has tachycardia, tachypnea and repeat temperature is 102.0.In light of this blood cultures and lactate were ordered. There is no obvious source at this time. Once source has been identified will treat with appropriate antibiotics.) Possible Source of Sepsis: Genitourinary Sepsis Organ Dysfunction Criteria Present: Lactic Acid > 2 mmol/L MDM MDM MDM Narrative Medical decision making narrative: Initial vitals reveal tachycardia and tachypnea. He had a normal temperature. Wound is repeated since he felt warmer than document temperature I was informed at 0915 that it is 102.0 ?F. Blood cultures were added as well as lactate. Source does not appear to be his decubitus ulcer right buttocks. Clinically he does not have pneumonia. His pulse ox is 93 on room air. His urine is turbid which may be due to chronic indwelling Benson. This could be his source. Patient does meet criteria for SIRS. Will obtain appropriate blood work to assess for sepsis and endorgan dysfunction. History & Record Review Additional record(s) reviewed:: Prior ED visit and Prior labs Lab Data Attestation: I reviewed the patient's lab results. Lab results narrative: White count is elevated 18.5 thousand. Patient does have a shift with no bandemia. Comprehensive metabolic panel is unremarkable. Alkaline phosphatase slightly elevated 137. Urine appears to be the source with greater than 100 WBCs and 2+ bacteria. Macro was positive for leukoesterase nitrites as well as occult blood. There is also proteinuria noted. Lactate is elevated at 2.8. Labs: Laboratory Results - last 24 hr 06/09/24 06/09/24 06/09/24 09:10 09:25 09:31 WBC 18.5 H RBC 4.73 Hgb 13.6 Hct 41.3 MCV 87.3 MCH 28.8 MCHC 32.9 RDW Std Deviation 52.9 H RDW Coeff of Josue 16.5 H Plt Count 310 MPV 9.3 Immature Gran % (Auto) 0.700 Neut % (Auto) 85.9 H Lymph % (Auto) 5.6 L [place] % (Auto) 6.9 Eos % (Auto) 0.4 Baso % (Auto) 0.5 Absolute Neuts (auto) 15.9 H Absolute Lymphs (auto) 1.04 Nucleated RBC % 0 Sodium 138 Potassium 4.1 Chloride 103 Carbon Dioxide 22.0 Anion Gap 13 BUN 10 Creatinine 0.67 L Estim Creat Clear Calc 98.85 Est GFR (MDRD) Non-Af 102 BUN/Creatinine Ratio 15.6 Glucose 149 H Lactic Acid 2.8 H* Calcium 9.3 Total Bilirubin 0.29 AST 25 ALT 21 Alkaline Phosphatase 137 H Total Protein 7.3 Albumin 3.6 Globulin 3.7 Albumin/Globulin Ratio 1.0 Urine Color Yellow Urine Clarity Cloudy Urine pH 7.0 Ur Specific Charlotte 1.010 Urine Protein 30 H Urine Glucose (UA) Normal Urine Ketones Negative Urine Occult Blood 150 H Urine Nitrite Positive H Urine Bilirubin Negative Urine Urobilinogen Normal Ur Leukocyte Esterase 500 H Urine RBC 0-5 SEEN Urine WBC >100 SEEN Ur Squamous Epith Cells 0 SEEN Amorphous Sediment 1+ Urine Bacteria 2+ Urine Mucus 0 SEEN Radiography Chest X-Ray - ED: 2 View, Read by ED Physician, Unchanged, Normal, Heart, Mediastinum, Chronic Changes and - (There is no effusion. Suboptimal due to rotation and limited inspiration. There is familyreviewed interpreted by tx [id number].) Diagnostic Testing: Clinical Impression(s) from Imaging Studies Chest X-Ray 06/09/24 09:12 IMPRESSION: Stable mild increased markings at the lung bases suggestive of scarring. Right apical scarring. Reading Location: [id number] Management Discussion w/another healthcare provider: Hospitalist (Spoke with Dr. Shaw. She will see patient in the ER. Full admit PCU) Treatment and Re-Evaluation :: Since there is concern patient has sepsis and source is either respiratory or urologic patient received 2 g of Rocephin which will cover both respiratory and urologic pathogens. If it is pneumonia wewill add azithromycin for atypical coverage since she presents from home. Comments:: [employer] Manager was asked to page the hospitalist at [phone]. Discharge Plan Dx/Rx/DC Orders Clinical Impression: Complicated urinary tract infection, Bedridden, Paraplegic spinal paralysis, Colostomy in place, Hyperlipidemia, Spinal cord injury, SIRS (systemic inflammatory response syndrome), Leukocytosis, Decubitus ulcer of right buttock,stage 3, Acidosis, lactic Disposition Disposition: Acute Care Hospital [facility] What to do if you have Problems For any increased pain, shortness of breath, bleeding, nausea or vomiting, chestpain, or any unexpected problems, contact your Primary Care Provider. Call [facility] ([phone]) or report tothe closest Emergency Room. Call 911 if necessary. 06/09/24 1132 Cosigner Signature (if applicable): CC: Dr. Nathanael Cardona MD ~ Signed [facility]03-13-2025 Radiology Diagnostic study note [facility] Services [address] [place], [place] [address] Chest PA and Lateral MR#: [id number] Acct: [id number] Name: JORGE COVINGTON Rep #: [id number] : 1955 M 68 From: Eric Ocampo MD PCP: Dr. Nathanael Cardona MD Status: RE G ER Study:Chest PA and Lateral Date of Exam: 06/09/24 Exam# [id number] Ordering Dr: Adri Saavedra MD PROCEDURE: CHEST PA AND LATERAL REASON FOR EXAM: TACHYPNEA TECHNIQUE: AP and lateral views were obtained. COMPARISON: Comparison is made with prior study dated February 08, 2022. FINDINGS: EKG electrodes are seen. Stable scarring at the right lung apex as well as bibasilar scarring. Stable examination. Degenerative changes of the thoracic spine. Prior fusion of the lower cervical spine. RAD/Chest PA and Lateral IMPRESSION: Stable mild increased markings at the lung bases suggestive of scarring. Right apical scarring. Reading Location: [id number] CC: Dr. Nathanael Cardona MD; Dr. Hebert Saavedra MD ~ Project Manager/Design Manager: Signed [facility]03-07-2025 Evaluation note* Diagnosis Onset Date Resolution Status Admit Date Cervical myelopathy inactive June 03, 2024 2:01pm Fusion of spine, cervical region ruel ctive June 03, 2024 2:01pm Thoracic myelopathy inactive June 03, 2024 2:01pm Decubitus ulcer of right buttock, stage 3 acute June 09 12:06pm Bedridden chronic June 09 12:06pm Acidosis, lactic resolved June 092024 12:06pm Complicated urinary tract infection resolved June 09, 2024 12:06pm Leukocytosis resolved June 09, 2024 12:06pm Colostomy in place inactive June 09, 2024 12:06pm Hyperlipidemia inactive May 12:06pm Paraplegic spinal paralysis inactive June 09, 2024 12:06pm Spinal cord injury inactive June 09, 2024 12:06pm SIRS (systemic inflammatory response syndrome) deleted June 09, 025 12:06pm Right ischial pressure sore acute June 27, 2024 3:30pm Right ischial pressure sore, stage 4 chronic June 27, 2024 3:30pm Right ischial pressure sore acute July 25, 2024 10:14am Right ischial pressure sore, stage 4 chronic July 25, 2024 10:14am Acidosis, lactic resolved July 29, 2024 9:30pm Catheter-associated urinary tract infection resolved July 29, 2024 9: 30pm Complicated UTI (urinary tra ct infection) resolved July 29, 2024 9: 30pm Encephalopathy resolved July 29 025 9:30pm Urinary tract infection resolved M ay 2024 9:30pm Chronic suprapubic catheter inactive July 29, 2024 9:30pm Right ischial pressure sore acute August 29, 2024 2:27pm Right ischial pressure sore, stage 4 chronic August 29, 2024 2 :27pm Scoliosis acute September 16 2:45pm [facility] [employer] [facility] Work Phone: 1(174) 171-344403-07-2025 Evaluation note* Diagnosis Onset Date Resolution Status Admit Date Cervical myelopathy inactive June 03, 2024 2:01pm Fusion of spine, cervical region ruel ctive June 03, 2024 2:01pm Thoracic myelopathy inactive June 03, 2024 2:01pm Decubitus ulcer of right buttock, stage 3 acute June 09 12:06pm Bedridden chronic June 09 12:06pm Acidosis, lactic resolved June 092024 12:06pm Complicated urinary tract infection resolved June 09, 2024 12:06pm Leukocytosis resolved June 09, 2024 12:06pm Colostomy in place inactive June 09, 2024 12:06pm Hyperlipidemia inactive May 12:06pm Paraplegic spinal paralysis inactive June 09, 2024 12:06pm Spinal cord injury inactive June 09, 2024 12:06pm SIRS (systemic inflammatory response syndrome) deleted June 09, 2 025 12:06pm Right ischial pressure sore acute June 27, 2024 3:30pm Right ischial pressure sore, stage 4 chronic June 27, 2024 3:30pm Right ischial pressure sore acute July 25, 2024 10:14am Right ischial pressure sore, stage 4 chronic July 25, 2024 10:14am Acidosis, lactic resolved July 29, 2024 9:30pm Catheter-associated urinary tract infection resolved July 29, 2024 9: 30pm Complicated UTI (urinary tra ct infection) resolved July 29, 2024 9: 30pm Encephalopathy resolved July 29, 025 9:30pm Urinary tract infection resolved M ay 2024 9:30pm Chronic suprapubic catheter inactive July 29, 2024 9:30pm Right ischial pressure sore acute August 29, 2024 2:27pm Right ischial pressure sore, stage 4 chronic August 29, 2024 2 :27pm Scoliosis acute September 16 2:45pm Cervical myelopathy inactive September 16, 2024 2:45pm Fusion of spine, cervical region ruel ctive September 16, 2024 2:45pm Thoracic myelopathy inactive September 16, 2024 2:45pm [facility] Work Phone: 1(177) 641-756003-03-2025 Progress note Author Luca [facility] Note Date/Time May 30, 2024 5:[address] [facility] [address] [place] [address] Progress Note - Wound Care 05/30/24 1837 MR#: [id number] Acct: [id number] Name: JORGE COVINGTON Rep #:[id number] : 1955 68 From: Luca Nayak MD PCP: Dr. Nathanael Cardona MD Status:RE G RCR Location: History of Present Illness Date of Service: 05/30/24 Chief Complaint: Right ischial pressure sore, Stage IV. History of Wound: This is a 68-year-old white male who presented to the wound healing center with complaints of pressure ulcer to right buttock area with extension to the right ischial bone. This started in October,. Patient's was treating with OTC creams and keeping area clean. The ulcer starting increasing in size and went to the Emergency Department on 02/08/22. CT showed subcutaneous and deep soft tissue involvement and possible early abscess formation. The bone was not addressed. The patient has very limited mobility as a result of a prior spine injury/surgery. He utilizes a wheelchair at all times. He has not been using his billy lift at home to transfer but has been using a board to slide himself from his bed to chair at home. He sits in his wheelchair almost all day, not really able to change positions. They finally obtained a low air loss overlay totheir regular mattress at home. A roho cushion was ordered for his wheelchair. Patient is a former smoker, he quit early 2023. Surgery 04/28/22 - Excision right ischial pressure sore, Stage IV, with partial ostectomy for osteomyelitis. Size of wound 8 x 7 x 4.5 cm. Operative tissue cultures positive for MSSA and Cutibacterium acnes. Bone cultures positive for MSSA and Corynebacterium striatum. He is being treated with Augmentin. Pathology from surgery 04/28/22 showed chronic reparative and reactive change. No evidence of acute osteomyelitis. He had a diverting colostomy placed on 11/21/[address] Romero. Surgery 08/26/23 - Excision recurrent right ischial pressure sore, Stage IV, withpartial ostectomy for osteomyelitis. Discharged home on 08/27/23. Pathology right ischial pressure sore soft tissue showed focal ulceration, acuteand chronic inflammation an granulation tissue reaction. Right ischial bone, partial ostectomy showed fragments of bone with chronic inflammation and reactive changes, negative for acute osteomyelitis. Operative soft tissue cultures from 08/26/23 positive for Serratia marcescens, Staphylococcus capitis, and Corynebacterium striatum. Operative bone cultures from 08/26/23 positive for Serratia marcescens and Corynebacterium striatum. He was started on Levaquin and Doxycycline until he can be seen by ID on 11/04/23. Subjective Subjective 07 Dec 2023: Patient and his report that he has been working with a physical therapist since her last appointment (we ordered physical therapy) and she has been to the house twice to work with him on strengthening his lower extremities that he may potentially use a walker. He is meeting with the office inspector today at our wound care center after this appointment so as to improve his nutrition in anticipation of potential reconstruction. They have been doing Dakin's wet-to-dry twice daily and he is not having any fevers chillsor concerns for infection. Reports that he has been offloading the wound with his bed and positioning changes. We have still not gotten any notes from the spine surgeon at the [facility]. Our team is working on this, and the patient is signed a release. Thepatient and his do not know the prognosis with regards to his spine and do not have follow- up with this provider at this point. I will review the notes once I have them and then I can discuss this better with the patient and his so they have proper follow up and a better understanding. 21 Mar 2024: Doing well overall. Have been unable to get any of the notes from outside providers. They're not sure about the spine pathology or prognosis. No new nutrition labs (ordering). We are referring to the licensed bondsman/security system sales consultant here at the wound care center. 04 Apr 2024: Nutrition labs reviewed. Albumin 2.8, prealbumin 22. Discussed high protein diet and he's continuing supplementation at home. Patient and his have been thinking about pressure offloading protocol and pressure offloading on the wheelchair. 02 May 2024: Discussed possibilities of flap reconstruction and he and his do not think it is a good idea at this time as they would have trouble with pressure offloading and trouble with not using the wheelchair and with placement in rehab. They would like continued local wound care at this time. Otherwise no changes no fevers or chills CURRENT ENCOUNTER, 30 May 2024: Doing well overall. Discussed wound care and doing well overall with the currentdressing changes. Objective Data Objective Data Vital Signs: Vital Signs Temp Pulse Resp BP O2 Del Method 98.1 F 90 16 117/79 Room Air 05/30/24 15:13 05/30/24 15:13 05/30/24 15:13 05/30/24 15:13 05/30/24 15:13 Oxygen Delivery Method Room Air Weight: 218 lb 14.704 oz Body Mass Index (BMI) 35.5 Charges/Coding Procedures Integumentary 111xxx-113xx: [id number] Lillian musc/fascia 20 sq cm/< Add On Codes: 10657 Lillian musc/fascia add-on (x 1 unit ) Physical Exam Narrative Right ischial wound Measured 5.4 x 3.9 cm and 5.5 cm deep. No exposed bone at the base, all granulated. No fluid collections. Surroundingskin appears healthy Const alert and oriented x3 General Appearance: cooperative Eyes EOMs intact bilaterally Resp normal respiratory effort Cardio regular rate and regular rhythm GI GI Narrative: Diverting ostomy is present and is productive Debridement Note Debridement Note Wound debrided: Right ischial wound Laterality: Right Wound Grade/Stage: 3 Type of Debridement: Excisional debridement Anesthesia Used: 4% Lidocaine Solution Depth: to muscle Percentage of wound debrided: 100 Instrument Used: 7mm curette Severity: Necrosis of Muscle Amount of bleeding with debridement: Moderate Bleeding Controlled with: Compression and gauze Patient tolerated procedure: Patient tolerated procedure well Post-Debridement Measurements and Additional Note: Post-Debridement Measurements/Treatment - Nurse 1 - General Ulcer Assessment Start: 05/30/24 15:13 Freq: Status: Active Protocol: KIRA Activity Type Activity Date Activity User E-sign Co-sign Detail Recorded Client Recorded Date Recorded By Document 05/30/24 15:13 KW [id number] 05/30/24 15:25 05/30/24 15:13 WC - Today's Visit Information Type of service Follow-up Visit (Physician/HEAD BAKER ) Arrival Mode Wheelchair Accompanied by Patient Identification Verified (Name & Yes ) Height and Weight Body Mass Index (BMI) 35.5 BMI Classification Obese Vital Signs Temperature (97.8 F-99.1 F) 98.1 F Temperature Source Temporal Pulse Rate (60-100) 90 Pulse Location Monitor Respiratory Rate (12-18) 16 Respiratory rate source Observation Oxygen Delivery Method Room Air Blood Pressure (90/60-120/80) 117/79 Blood Pressure Mean (mm Hg) 91 Source Monitor Position Sitting Blood Pressure Location Left Forearm History Since Last Visit- (Skip if this is Patient's initial visit) Have you changed medications since your No last visit? Any new allergies or adverse reactions No Had a fall/change in ADL's that may No increase risk of falls Signs or symptoms of abuse and/or No neglect since last visit Have you been in the hospital since your No last visit? Has dressing in place as prescribed Yes Has compression in place as prescribed N/A Has offloadiing in place as prescribed N/A Experienced any changes in pain level or No management Left Footwear Regular Shoe Right Footwear Regular Shoe Pain Scale: 0-10 Numeric Is Patient Pain Free? Yes - Nurse 1 - General Ulcer Measurement Start: 05/30/24 15:13 Freq: Status: Active Protocol: Activity Type Activity Date Activity User E-sign Co-sign Detail Recorded Client Recorded Date Recorded By Document 05/30/24 15:13 KW [id number] 05/30/24 15:25 KW 05/30/24 15:13 Wound Center Nurse 1 #5- R ischium Post op -Current Size (cm) - Length 5.2 -Current Size (cm) - Width 2.1 -Current Size (cm) - Depth 5.6 -Total Square Cm 10.92 -Date of Last Picture (Recall this 05/30/24 field) -Tunneling Yes -Tunneling Position (O'clock) 2 -Tunneling Distance (cm) 7 -Exudate Amt Large -Exudate Type Serosanguineous -Wound Margin Distinct, Outline Attached -Granulation Amt Large (67-100%) -Granulation Quality Red -Necrosis Amt Small (1-33%) -Necrotic Tissue Type Adherent Slough -Texture (Michelle-wound Skin Appearance) Assessed -Moisture (Michelle-wound Skin Appearance) Assessed, Maceration -Color (Michelle-wound Skin Appearance) Assessed -Temperature (Michelle-wound Skin No Abnormality Appearance) (Pt Warm) -Tenderness on Palpation (Michelle-wound No Skin Appearance) -Ulcer Cleansing Soap and Water -Foul Odor after Cleansing No -Anesthetic Used 4% Lidocaine Solution WC - Nurse 2 - General Ulcer CM Notes Start: 05/30/24 15:13 Freq: Status: Active Protocol: Activity Type Activity Date Activity User E-sign Co-sign Detail Recorded Client Recorded Date Recorded By Document 05/30/24 15:34 ESTER [id number] 05/30/24 15:39 ESTER 05/30/24 15:34 Wound Center Nurse 2 -Time 15:34 -Correct Patient Yes -Correct Side, Site, Position Yes -Correct Procedure Yes -Procedure Performed Yes -Type of Procedure Debridement -Clinical Debridement Muscle / Fascia -Tissue Removed Muscle,Fascia -Post Debridement (cm) - Length 5.4 -Post Debridement (cm) - Width 3.9 -Post Debridement (cm) - Depth 5.5 -Total Square (Post) (cm) 21.06 -Area of Debridement (cm) - Length 5.4 -Area of Debridement (cm) - Width 3.9 -Total Square (Area) (cm) 21.06 -Tunneling No -Undermining/Tunneling No -Circular Undermining No -Wound/Ulcer Outcome Not Healed -Ulcer Cleansing Rinsed/ Irrigated with Saline -Foul Odor after Cleansing No -Bioengineered Tissue No -Bleeding Controlled with Pressure -Treatment Response Procedure Tolerated Well -Offloading No -Pressure Reduction Wheelchair cushion -Debridement - Muscle / Fascia, 1st Yes 20sq cm -Debridement, Muscle/Fascia, ea addt'l 1 20sq cm or part thereof Pain Scale: 0-10 Numeric Is Patient Pain Free? Yes WC - Nurse 3 - General Ulcer D/C NN Start: 05/30/24 15:13 Freq: Status: Active Protocol: Activity Type Activity Date Activity User E-sign Co-sign Detail Recorded Client Recorded Date Recorded By Document 05/30/24 15:45 DL [id number] 05/30/24 15:48 DL 05/30/24 15:45 Wound Care Center Nurse 3 #5- R ischium Post op -Ulcer Cleansing Rinsed/ Irrigated with Saline -Foul Odor after Cleansing No -Primary Dressing Applied Hysept -Other Dressing dakins -Primary Dressing Covered/Secured with Dry Gauze, Secured with Tape -Other Covering ABD -Hysept 1 -Wound Comment(s) Dressing applied per Ramsey Ryder today. Treatment Response Procedure Tolerated Well Pain Scale: 0-10 Numeric Is Patient Pain Free? Yes WC - Visit Discharge Discharge Condition Stable Ambulatory Status Wheelchair Transportation Private Auto Facility Type Home Health Orders Sent Yes Assessment/Plan Assessment/Plan (1) Right ischial pressure sore: CODE(S): L89.319 - Pressure ulcer of right buttock, unspecified stage (2) Right ischial pressure sore, stage 4: CODE(S): L89.314 - Pressure ulcer of right buttock, stage 4 PLAN: Wound care - Dakin's 0.25% moistened gauze packed into the ulcer twice daily and prn covered with ABD or gauze. Wash the ulcer and michelle wound with soap and water at the time of the dressing change. His has been working on getting the [facility] records about his spine surgery and his prognosis. She states that she was told it was sent and received but nobody in the hospital system has been able to locate his chart. We will continue to try to get these records. Encouraged increased protein intake to help with wound healing. Waiting to hear from the [employer] to see if they can assist them financially for a new low air loss mattress. PLAN FROM 21 Mar 2024: I would like to try the VAC again. Patient and reluctant 2/2 problems with it in the past being so close to gluteal crease/perineum. For now, agree with continued Dakins. We talked about practicality of falp reconstruction and risks/benefits, and they're unsure of the benefit, especially if risks of failure/need for further wound care are so high and they're required to have strict and uncomfortable positioning restrictions. F/u and re-address in 2 weeks. 04 Apr 2024: would not like to do wound vac. Reports that it causes too many problems with leaking, ect. They're going to consider options for reconstruction, but areconcerned about post-operative rehab and pressure offloading (practicality of not being able to be in a wheelchair). Mrs. Covington is going to call me and discuss further after she and her have discussed more. PLAN FROM 02 May 2024: After thorough discussion of options for potential reconstruction, and Mrs. Covington would like to defer reconstruction at this time and continue local woundcare regimen. Follow-up in 2 weeks for wound check. Continue current regimen. Plan from 30 May 2024: Making improvements with dressings. Continue offloading and the [facility] WTD. O.K. for monthly wound checks (challenge for the family to come more often than this, and wound is open and healthy). Plan to continue to promote granulation (has granulated over bone with current regimen). 05/30/241841 <Electronically signed by Luca Nayak MD> Cosigner Signature (if applicable): CC: ~ Signed [facility] Work Phone: 1(334) 908-870103-03-2025 [address] [facility] [address] [place] [address] Progress Note - Wound Care 05/30/24 1837 MR#: [id number] Acct: [id number] Name: JORGE COVINGTON Rep #:[id number] : 1955 68 From: Luca Nayak MD PCP: Dr. Nathanael Cardona MD Status:RE G RCR Location: History of Present Illness Date of Service: 05/30/24 Chief Complaint: Right ischial pressure sore, Stage IV. History of Wound: This is a 68-year-old white male who presented to the wound healing center with complaints of pressure ulcer to right buttock area with extension to the right ischial bone. This started in October,. Patient's was treating with OTC creams and keeping area clean. The ulcer starting increasing in size and went to the Emergency Department on 02/08/22. CT showed subcutaneous and deep soft tissue involvement and possible early abscess formation. The bone was not addressed. The patient has very limited mobility as a result of a prior spine injury/surgery. He utilizes a wheelchair at all times. He has not been using his billy lift at home to transfer but has been using aboard to slide himself from his bed to chair at home. He sits in his wheelchair almost all day, notreally able to change positions. They finally obtained a low air loss overlay totheir regular mattress at home. A roho cushion was ordered for his wheelchair. Patient is a former smoker, he quit early 2023. Surgery 04/28/22 - Excision right ischial pressure sore, Stage IV, with partial ostectomy for osteomyelitis. Size of wound 8 x 7 x 4.5 cm. Operative tissue cultures positive for MSSA and Cutibacterium acnes. Bone cultures positive for MSSA and Corynebacterium striatum. He is being treated with Augmentin. Pathology from surgery 04/28/22 showed chronic reparative and reactive change. No evidence of acute osteomyelitis. He had a diverting colostomy placed on 11/21/[address] Romero. Surgery 08/26/23 - Excision recurrent right ischial pressure sore, Stage IV, withpartial ostectomy for osteomyelitis. Discharged home on 08/27/23. Pathology right ischial pressure sore soft tissue showed focal ulceration, acuteand chronic inflammation an granulation tissue reaction. Right ischial bone, partial ostectomy showed fragments of bonewith chronic inflammation and reactive changes, negative for acute osteomyelitis. Operative soft tissue cultures from 08/26/23 positive for Serratia marcescens, Staphylococcus capitis, and Corynebacterium striatum. Operative bone cultures from 08/26/23 positive for Serratia marcescens and Corynebacterium striatum.He was started on Levaquin and Doxycycline until he can be seen by ID on 11/04/23. Subjective Subjective 07 Dec 2023: Patient and his report that he has been working with a physical therapist since her last appointment (we ordered physical therapy) and she has been to the house twice to work with him on strengthening his lower extremities that he may potentially use a walker. He is meeting with the office inspector today at our wound care center after this appointment so as to improve his nutritionin anticipation of potential reconstruction. They have been doing Dakin's wet-to-dry twice daily and he is not having any fevers chillsor concerns for infection. Reports that he has been offloading the wound with his bed and positioning changes. We have still not gotten any notes from the spine surgeon at the [facility]. Our team is working on this, and the patient is signed a release. Thepatient and his do not know the prognosis with regards to his spine and do not have follow-up with this provider at this point. I will review the notes once I have them and then I can discuss this better with the patient and his so they have proper follow up and a better understanding. 21 Mar 2024: Doing well overall. Have been unable to get any of the notes from outside providers. They're not sure about the spine pathology or prognosis. No new nutrition labs (ordering). We are referring to thedietician/security system sales consultant here at the wound care center. 04 Apr 2024: Nutrition labs reviewed. Albumin 2.8, prealbumin 22. Discussed high protein diet and he's continuing supplementation at home. Patient and his have been thinking about pressure offloading protocol and pressure offloading on the wheelchair. 02 May 2024: Discussed possibilities of flap reconstruction and he and his do not think it is a good idea at this time as they would have trouble with pressure offloading and trouble with not using the wheelchair and with placement in rehab. They would like continued local wound care at this time. Otherwise no changes no fevers or chills CURRENT ENCOUNTER, 30 May 2024: Doing well overall. Discussed wound care and doing well overall with the currentdressing changes. Objective Data Objective Data Vital Signs: Vital Signs Temp Pulse Resp BP O2 Del Method 98.1 F 90 16 117/79 Room Air 05/30/24 15:13 05/30/24 15:13 05/30/24 15:13 05/30/24 15:13 05/30/24 15:13 Oxygen Delivery Method Room Air Weight: 218 lb 14.704 oz Body Mass Index (BMI) 35.5 Charges/Coding Procedures Integumentary 111xxx-113xx: 80489 Lillian musc/fascia 20 sq cm/< Add On Codes: 72925 Lillian musc/fascia add-on (x 1 unit ) Physical Exam Narrative Right ischial wound Measured 5.4 x 3.9 cm and 5.5 cm deep. No exposed bone at the base, all granulated. No fluid collections. Surroundingskin appears healthy Const alert and oriented x3 General Appearance: cooperative Eyes EOMs intact bilaterally Resp normal respiratory effort Cardio regular rate and regular rhythm GI GI Narrative: Diverting ostomy is present and is productive Debridement Note Debridement Note Wound debrided: Right ischial wound Laterality: Right Wound Grade/Stage: 3 Type of Debridement: Excisional debridement Anesthesia Used: 4% Lidocaine Solution Depth: to muscle Percentage of wound debrided: 100 Instrument Used: 7mm curette Severity: Necrosis of Muscle Amount of bleeding with debridement: Moderate Bleeding Controlled with: Compression and gauze Patient tolerated procedure: Patient tolerated procedure well Post-Debridement Measurements and Additional Note: Post-Debridement Measurements/Treatment - Nurse 1 - General Ulcer Assessment Start: 05/30/24 15:13 Freq: Status: Active Protocol: KIRA Activity Type Activity Date Activity User E-sign Co-sign Detail Recorded Client Recorded Date Recorded By Document 05/30/24 15:13 [id number] 05/30/24 15:25 KW 05/30/24 15:13 - Today's Visit Information Type of service Follow-up Visit (Physician/HEAD BAKER ) Arrival Mode Wheelchair Accompanied by Patient Identification Verified (Name & Yes ) Height and Weight Body Mass Index (BMI) 35.5 BMI Classification Obese Vital Signs Temperature (97.8 F-99.1 F) 98.1 F Temperature Source Temporal Pulse Rate (60-100) 90 Pulse Location Monitor Respiratory Rate (12-18) 16 Respiratory rate source Observation Oxygen Delivery Method Room Air Blood Pressure (90/60-120/80) 117/79 Blood Pressure Mean (mm Hg) 91 Source Monitor Position Sitting Blood Pressure Location Left Forearm History Since Last Visit- (Skip if this is Patient's initial visit) Have you changed medications since your No last visit? Any new allergies or adverse reactions No Had a fall/change in ADL's that may No increase risk of falls Signs or symptoms of abuse and/or No neglect since last visit Have you been in the hospital since your No last visit? Has dressing in place as prescribed Yes Has compression in place as prescribed N/A Has offloadiing in place as prescribed N/A Experienced any changes in pain level or No management Left Footwear Regular Shoe Right Footwear Regular Shoe Pain Scale: 0-10 Numeric Is Patient Pain Free? Yes - Nurse 1 - General Ulcer Measurement Start: 05/30/24 15:13 Freq: Status: Active Protocol: Activity Type Activity Date Activity User E-sign Co-sign Detail Recorded Client Recorded Date Recorded By Document 05/30/24 15:13 SHAISTA [id number] 05/30/24 15:25 KW 05/30/24 15:13 Wound Center Nurse 1 #5- R ischium Post op -Current Size (cm) - Length 5.2 -Current Size (cm) - Width 2.1 -Current Size (cm) - Depth 5.6 -Total Square Cm 10.92 -Date of Last Picture (Recall this 05/30/24 field) -Tunneling Yes -Tunneling Position (O'clock) 2 -Tunneling Distance (cm) 7 -Exudate Amt Large -Exudate Type Serosanguineous -Wound Margin Distinct, Outline Attached -Granulation Amt Large (67-100%) -Granulation Quality Red -Necrosis Amt Small (1-33%) -Necrotic Tissue Type Adherent Slough -Texture (Michelle-wound Skin Appearance) Assessed -Moisture (Michelle-wound Skin Appearance) Assessed, Maceration -Color (Michelle-wound Skin Appearance) Assessed -Temperature (Michelle-wound Skin No Abnormality Appearance) (Pt Warm) -Tenderness on Palpation (Michelle-wound No Skin Appearance) -Ulcer Cleansing Soap and Water -Foul Odor after Cleansing No -Anesthetic Used 4% Lidocaine Solution - Nurse 2 - General Ulcer CM Notes Start: 05/30/24 15:13 Freq: Status: Active Protocol: Activity Type Activity Date Activity User E-sign Co-sign Detail Recorded Client Recorded Date Recorded By Document 05/30/24 15:34 ESTER [id number] 05/30/24 15:39 05/30/24 15:34 Wound Center Nurse 2 -Time 15:34 -Correct Patient Yes -Correct Side, Site, Position Yes -Correct Procedure Yes -Procedure Performed Yes -Type of Procedure Debridement -Clinical Debridement Muscle / Fascia -Tissue Removed Muscle,Fascia -Post Debridement (cm) - Length 5.4 -Post Debridement (cm) - Width 3.9 -Post Debridement (cm) - Depth 5.5 -Total Square (Post) (cm) 21.06 -Area of Debridement (cm) - Length 5.4 -Area of Debridement (cm) - Width 3.9 -Total Square (Area) (cm) 21.06 -Tunneling No -Undermining/Tunneling No -Circular Undermining No -Wound/Ulcer Outcome Not Healed -Ulcer Cleansing Rinsed/ Irrigated with Saline -Foul Odor after Cleansing No -Bioengineered Tissue No -Bleeding Controlled with Pressure -Treatment Response Procedure Tolerated Well -Offloading No -Pressure Reduction Wheelchair cushion -Debridement - Muscle / Fascia, 1st Yes 20sq cm -Debridement, Muscle/Fascia, ea addt'l 1 20sq cm or part thereof Pain Scale: 0-10 Numeric Is Patient Pain Free? Yes - Nurse 3 - General Ulcer D/C NN Start: 05/30/24 15:13 Freq: Status: Active Protocol: Activity Type Activity Date Activity User E-sign Co-sign Detail Recorded Client Recorded Date Recorded By Document 05/30/24 15:45 DL [id number] 05/30/24 15:48 DL 05/30/24 15:45 Wound Care Center Nurse 3 #5- R ischium Post op -Ulcer Cleansing Rinsed/ Irrigated with Saline -Foul Odor after Cleansing No -Primary Dressing Applied Hysept -Other Dressing dakins -Primary Dressing Covered/Secured with Dry Gauze, Secured with Tape -Other Covering ABD -Hysept 1 -Wound Comment(s) Dressing applied per Ramsey Ryder today. Treatment Response Procedure Tolerated Well Pain Scale: 0-10 Numeric Is Patient Pain Free? Yes - Visit Discharge Discharge Condition Stable Ambulatory Status Wheelchair Transportation Private Auto Facility Type Home Health Orders Sent Yes Assessment/Plan Assessment/Plan (1) Right ischial pressure sore: CODE(S): L89.319 - Pressure ulcer of right buttock, unspecified stage (2) Right ischial pressure sore, stage 4: CODE(S): L89.314 - Pressure ulcer of right buttock, stage 4 PLAN: Wound care - Dakin's 0.25% moistened gauze packed into the ulcer twice daily and prn covered with ABD or gauze. Wash the ulcer and michelle wound with soap and water at the time of the dressing change. His has been working on getting the [facility] records about his spine surgery and his prognosis. She states that she was told it was sent and received but nobody in the hospital system has been able to locate his chart. We will continue to try to get these records. Encouraged increased protein intake to help with wound healing. Waiting to hear from the [facility] to see if they can assist them financially for a new low air loss mattress. PLAN FROM 21 Mar 2024: I would like to try the VAC again. Patient and reluctant 2/2 problems with it in the past being so close to gluteal crease/perineum. For now, agree with continued Dakins. We talked about practicality of falp reconstruction and risks/benefits, and they're unsure of the benefit, especially if risks of failure/need for further wound care are so high and they're required to have strict and uncomfortable positioning restrictions. F/u and re-address in 2 weeks. 04 Apr 2024: would not like to do wound vac. Reports that it causes too many problems with leaking, ect. They're going to consider options for reconstruction, but areconcerned about post-operative rehab and pressure offloading (practicality of not being able to be in a wheelchair). Mrs. Covington is going to call me and discuss further after she and her have discussed more. PLAN FROM 02 May 2024: After thorough discussion of options for potential reconstruction, and Mrs. Covington would like to defer reconstruction at this time and continue local woundcare regimen. Follow-up in 2 weeks for wound check. Continue current regimen. Plan from 30 May 2024: Making improvements with dressings. Continue offloading and the Dakins WTD. O.K. for monthly wound checks (challenge for the family to come more often than this, and wound is open and healthy). Plan to continue to promote granulation (has granulated over bone with current regimen). 05/30/241841 Cosigner Signature (if applicable): CC: ~ Signed [facility]02-03-2025 Evaluation note* Diagnosis Onset Date Resolution Status Admit Date Right ischial pressure sore acute May 02, 2024 2:52pm Right ischial pressure sore, stage 4 chronic May 02 2:52pm Cervical myelopathy inactive June 03, 2024 2:01pm Fusion of spine, cervical region inactive June 03, 2024 2:01pm Thoracic myelopathy inactive June 03, 2024 2:01pm Decubitus ulcer of right buttock, stage 3 acute June 09 12:06pm Bedridden chronic June 09 12:06pm Acidosis, lactic resolved June 092024 12:06pm Complicated urinary tract infection resolved June 09, 2024 12:06pm Leukocytosis resolved June 09, 2024 12:06pm Colostomy in place inactive June 09, 2024 12:06pm Hyperlipidemia inactive May 12:06pm Paraplegic spinal paralysis inactive June 09, 2024 12:06pm Spinal cord injury inactive June 09, 2024 12:06pm SIRS (systemic inflammatory response syndrome) deleted June 09, 2 025 12:06pm Right ischial pressure sore acute June 27, 2024 3:30pm Right ischial pressure sore, stage 4 chronic June 27, 2024 3:30pm Right ischial pressure sore acute July 25, 2024 10:14am Right ischial pressure sore, stage 4 chronic July 25, 2024 10:14am Acidosis, lactic resolved July 29, 2024 9:30pm Catheter-associated urinary tract infection resolved July 29, 2024 9: 30pm Complicated UTI (urinary tra ct infection) resolved July 29, 2024 9: 30pm Encephalopathy resolved July 29, 025 9:30pm Urinary tract infection resolved M ay 2024 9:30pm Chronic suprapubic catheter inactive July 29, 2024 9:30pm [facility] Work Phone: 1(237) 970-436901-06-2025 Evaluation note* Diagnosis Onset Date Resolution Status Admit Date Right ischial pressure sore acute April 04, 2024 3:36pm Right ischial pressure sore, stage 4 chronic April 04 3:36pm Right ischial pressure sore acute May 02, 2024 2:52pm Right ischial pressure sore, stage 4 chronic May 02 2:52pm Cervical myelopathy acute June 03, 2024 2:01pm Fusion of spine, cervical region acute June 03, 2024 2:01pm Thoracic myelopathy acute June 03, 2024 2:01pm 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 June 09, 2024 12:06pm Decubitus ulcer of right buttock, stage 3 acute June 09 12:06pm Hyperlipidemia acute May 12:06pm Spinal cord injury acute June 09, 2024 12:06pm Bedridden chronic June 09 12:06pm Paraplegic spinal paralysis chronic June 09, 2024 12:06pm Acidosis, lactic resolved June 092024 12:06pm Complicated urinary tract infection resolved June 09, 2024 12:06pm Leukocytosis resolved June 09, 2024 12:06pm SIRS (systemic inflammatory response syndrome) deleted June 09, 2 025 12:06pm Right ischial pressure sore acute June 27, 2024 3:30pm Right ischial pressure sore, stage 4 chronic June 27, 2024 3:30pm Right ischial pressure sore acute July 25, 2024 10:14am Right ischial pressure sore, stage 4 chronic July 25, 2024 10:14am Acidosis, lactic acute July 29, 2024 9:30pm Catheter-associated urinary tract infection acute July 29, 2024 9: 30pm Complicated UTI (urinary tra ct infection) acute July 29, 2024 9: 30pm Encephalopathy acute July 29, 025 9:30pm Urinary tract infection acute M 2024 9:30pm Chronic suprapubic catheter chronic July 29, 2024 9:30pm [facility] Work Phone: 1(732) 256-126901-02-2025 Telephone encounter Note* Telephone Encounter - Galileo Mcguire RN - 03/31/2024 2:58 PM EST Letter faxed to number provided. Successful fax confirmation scanned into media. [id number] Miscellaneous Notes* Telephone Encounter - Galileo Mcguire RN - 03/31/2024 2:58 PM EST Letter faxed to number provided. Successful fax confirmation scanned into media. * Telephone Encounter - EVELYNE Mccormack CNP - 03/31/2024 2:29 PM EST Letter created, please fax * Telephone Encounter - Misty Ortiz LPN - 03/31/2024 2:07 PM EST Patient need letter created for orders month SPT changes and care for any clogged SPT, per Jennifer. Fax order to [phone]. Please advise. * Telephone Encounter - Ely Flannery - 03/31/2024 12:57 PM EST Name of caller: Jennifer Contact phone number: [phone] Relationship to Patient: [facility] Care Provider: Dr Casas Practice: Uro Chief Complaint/Reason for Call: Requesting a VERBAL ORDER Super Pubic Catheter Monthly Change. Jennifer: [phone] Patient changed insurance this is why the new Order is being requested. Best time of day caller can be reached: any Patient advised that office/PCP has 24-48 business hours to return their call: No documented in this [facility]01-02-2025 Telephone encounter Note* Telephone Encounter - EVELYNE Mccormack CNP - 03/31/2024 2:29 PM EST Letter created, please fax [facility] [employer] Phone: 1(796) 912-803001-02-2025 Telephone encounter Note* Telephone Encounter - Misty Ortiz LPN - 03/31/2024 2:07 PM EST Patient need letter created for orders month SPT changes and care for any clogged SPT, per Jennifer. Fax order to [phone]. Please advise. [facility]01-02-2025 Telephone encounter Note* Telephone Encounter - Ely Flannery - 03/31/2024 12:57 PM EST Name of caller: Jennifer Contact phone number: [phone] Relationship to Patient: [facility] Health Care Provider: Dr Casas Practice: Uro Chief Complaint/Reason for Call: Requesting a VERBAL ORDER Super Pubic Catheter Monthly Change. Jennifer: [phone] Patient changed insurance this is why the new Order is being requested. Best time of day caller can be reached: any Patient advised that office/PCP has 24-48 business hours to return their call: No [facility] [phone] Evaluation note* Diagnosis Onset Date Resolution Status Admit Date Right ischial pressure sore acute March 21, 2024 3:09pm Right ischial pressure sore, stage 4 chronic March 21, 2 024 3:09pm Right ischial pressure sore acute April 04, 2024 3:36pm Right ischial pressure sore, stage 4 chronic April 04 3:36pm Right ischial pressure sore acute May 02, 2024 2:52pm Right ischial pressure sore, stage 4 chronic May 02 2:52pm Cervical myelopathy acute June 03, 2024 2:01pm Fusion of spine, cervical region acute June 03, 2024 2:01pm Thoracic myelopathy acute June 03, 2024 2:01pm 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 June 09, 2024 12:06pm Decubitus ulcer of right buttock, stage 3 acute June 09 12:06pm Hyperlipidemia acute May 12:06pm Spinal cord injury acute June 09, 2024 12:06pm Bedridden chronic June 09 12:06pm Paraplegic spinal paralysis chronic June 09, 2024 12:06pm Acidosis, lactic resolved June 092024 12:06pm Complicated urinary tract infection resolved June 09, 2024 12:06pm Leukocytosis resolved June 09, 2024 12:06pm SIRS (systemic inflammatory response syndrome) deleted June 09, 2 025 12:06pm Right ischial pressure sore acute June 27, 2024 3:30pm Right ischial pressure sore, stage 4 chronic June 27, 2024 3:30pm [facility] Work Phone: 1(433) 421-763411-27-2024 Evaluation note* Diagnosis Onset Date Resolution Status Admit Date Right ischial pressure sore acute February 24, 2024 2:53pm Right ischial pressure sore, stage 4 chronic February 23, 2 024 2:53pm Right ischial pressure sore acute March 21, 2024 3:09pm Right ischial pressure sore, stage 4 chronic March 21, 2 024 3:09pm Right ischial pressure sore acute April 04, 2024 3:36pm Right ischial pressure sore, stage 4 chronic April 04 3:36pm Right ischial pressure sore acute May 02, 2024 2:52pm Right ischial pressure sore, stage 4 chronic May 02 2:52pm Right ischial pressure sore acute May 30, 2024 3:13pm Right ischial pressure sore, stage 4 chronic May 30, 2024 3:13pm Cervical myelopathy acute June 03, 2024 2:01pm Fusion of spine, cervical region acute June 03, 2024 2:01pm Thoracic myelopathy acute June 03, 2024 2:01pm Acidosis, lactic acute June 092024 12:06pm 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 June 09, 2024 12:06pm Complicated urinary tract infection acute June 09, 2024 12:06pm Decubitus ulcer of right buttock, stage 3 acute June 09 12:06pm Hyperlipidemia acute May 12:06pm Leukocytosis acute June 09, 2024 12:06pm SIRS (systemic inflammatory response syndrome) acute June 09, 2 025 12:06pm Spinal cord injury acute June 09, 2024 12:06pm Bedridden chronic June 09 12:06pm Paraplegic spinal paralysis chronic June 09, 2024 12:06pm [facility] Work Phone: 1(365) 537-620211-01-2024 Telephone encounter Note* Telephone Encounter - Shamika Khan - 01/29/2024 1:21 PM EDT Name of caller: Jaqueline Contact phone number: [phone] Relationship to Patient: [facility] Provider: Dr Casas Practice: Urology Chief Complaint/Reason for Call: Jaqueline stated that a voicemail was left on her managers phone and was calling back. Tried to call back line, no answer. Please call Jaqueline back to advise. Best time of day caller can be reached: Any Patient advised that office/PCP has 24-48 business hours to return their call: N/A [facility] [id number] Miscellaneous Notes* Telephone Encounter - Shamiak Khan - 01/29/2024 1:21 PM EDT Name of caller: Jaqueline Contact phone number: [phone] Relationship to Patient: [facility] Provider: Dr Casas Practice: Urology Chief Complaint/Reason for Call: Jaqueline stated that a voicemail was left on her managers phone and was calling back. Tried to call back line, no answer. Please call Jaqueline back to advise. Best time of day caller can be reached: Any Patient advised that office/PCP has 24-48 business hours to return their call: N/A * Telephone Encounter - Hang Meehan RN - 01/26/2024 8:12 AM EDT Letter faxed to [facility] [place] - ATTN: Jaqueline Your fax has been successfully sent to [facility] at [phone]. 01/26/2024 7:53:04 AM Conversion Record Successfully created cover sheet. Type: application/vnd.Diabeticaxmlformats-officedocument.wordprocessingml.document G3 to TIFF #1: Success [image/g3] (48ms) GhostScript TIFF #1: Success [image/tiff] (190ms) Resubmitted: [application/postscript] Word Automation #1: Success [image/tiff] (1534ms) ([id number]) 01/26/2024 7:52:58 AM Transmission Record Sent to [phone] with remote ID [phone] Result: (0) Success Page record: 1 - 3 Elapsed time: 03:18 on channel 48 01/26/2024 7:52:47 AM Conversion Record [[id number]] Type: application/postscript G3 to TIFF #1: Success [image/g3] (64ms) GhostScript TIFF #1: Success [image/tiff] (379ms) ([id number]) 01/26/2024 7:52:40 AM Origin Record Created by JEANNINE * Telephone Encounter - EVELYNE Pelaez CNP - 01/25/2024 4:54 PM EDT A letter has been created for home health orders. Please fax to home health agency. Thank you * Telephone Encounter - Marta Gallegos LPN - 01/25/2024 2:59 PM EDT Patient's spouse called and wanted to let us know that patient is in the ER at [facility] due to SPT being clogged. Home care saw patient this AM but could not change patient's catheter as they do not have orders to change SPT or flush it. Spoke with home care nurse Janell with [facility]. Janell states patient has been an established patient with them for a long time and the SPT is new. Currently they do not have orders to manage SPT. Per spouse they saw Dr. Casas on Thursday and orders were going to be written. Orders need created and faxed. Contact informationincluded below. [facility] [place]. [phone]. ATTN: Jaqueline documented in this [facility]10[facility] Telephone encounter Note* Telephone Encounter - Hang Meehan RN - 01/26/2024 8:12 AM EDT Letter faxed to [facility] - ATTN: Jaqueline Your fax has been successfully sent to [facility] at [phone]. 01/26/2024 7:53:04 AM Conversion Record Successfully created cover sheet. Type: application/vnd.openxmlformats-officedocument.wordprocessingml.document G3 to TIFF #1: Success [image/g3] (48ms) GhostScript TIFF #1: Success [image/tiff] (190ms) Resubmitted: [application/postscript] Word Automation #1: Success [image/tiff] (1534ms) ([id number]) 01/26/2024 7:52:58 AM Transmission Record Sent to [phone] with remote ID [id number] Result: (0) Success Page record: 1 - 3 Elapsed time: 03:18 on channel 48 01/26/2024 7:52:47 AM Conversion Record [[id number].PRT] Type: application/postscript G3 to TIFF #1: Success [image/g3] (64ms) GhostScript TIFF #1: Success [image/tiff] (379ms) ([id number]:[email or web address]) 01/26/2024 7:52:40 AM Origin Record Created by JEANNINE [facility] [id number] Telephone encounter Note* Telephone Encounter - EVELYNE Pelaez CNP - 01/25/2024 4:54 PM EDT A letter has been created for home health orders. Please fax to home health agency. Thank you [facility] [id number] Telephone encounter Note* Telephone Encounter - Marta Gallegos LPN - 01/25/2024 2:59 PM EDT Patient's spouse called and wanted to let us know that patient is in the ER at [facility] due to SPT being clogged. Home care saw patient this AM but could not change patient's catheter as they do not have orders to change SPT or flush it. Spoke with home care nurse Janell with [facility]. Janell states patient has been an established patient with them for a long time and the SPT is new. Currently they do not have orders to manage SPT. Per spouse they saw Dr. Casas on Thursday and orders were going to be written. Orders need created and faxed. Contact informationincluded below. [facility] [place]. [phone]. ATTN: Jaqueline [facility] [id number] History of Present illness Narrative* Rikki Casas MD - 01/22/2024 9:50 AM EDT Images from the original note were not [...] on 12/11/2023. The patient apparently went into [facility] on 12/25/23 (POD#14) because the catheter was malfunctioning. According to the , she said that the balloon inflation sideport apparentlygot cracked and the catheter was leaking. The [...] fluid draining around the catheter at the skininsertion site. The patient is having no pain. [...] discharge or drainage around the catheter. 16 Estonian suprapubic tube is in place. Musculoskeletal: General: [...] perform exchange of the suprapubic cystostomy (16 Estonian) on a monthly basis Rikki Casas MD 01/22/24 5:00 PM documented in this [facility]10-25-2024 History of Present illness Narrative* Rikki Casas MD - 01/22/2024 9:50 AM EDT Images from the original note were not [...] on 12/11/2023. The patient apparently went into [facility] on 12/25/23 (POD#14) because the catheter was malfunctioning. According to the , she said that the balloon inflation sideport apparentlygot cracked and the catheter was leaking. The [...] fluid draining around the catheter at the skininsertion site. The patient is having no pain. [...] discharge or drainage around the catheter. 16 Estonian suprapubic tube is in place. Musculoskeletal: General: [...] perform exchange of the suprapubic cystostomy (16 Estonian) on a monthly basis Rikki Casas MD 01/22/24 5:00 PM * Diana Moore MA - 01/22/2024 9:50 AM EDT Called N, left detailed VM to return call to office regarding SPT orders. documented in this [facility]09-20-2024 Telephone encounter Note* Telephone Encounter - Emerald Slater RN - 12/18/2023 4:02 PM EDT S: Patient's spoke with [facility] nurse regarding catheter leaking where it is connected to the collection bag. B: Onset of symptoms/concern yesterday, states that taping it did not resolve the leaking. A: States there is not any leakage around the insertion site, there is still a good amount of urinedraining into the bag. Denies abdominal pain, fever. She reports that leakage is where the tube is connected to the bag. R: Patient's states that they have a home health care nurse. CAC Rn advised her to contact [facility] to see if they are able to replace the catheter. Patient's verbalized understanding. No further needs at this time. Reason for Disposition [1] Catheter is broken or cracked AND [2] still works (functioning normally) Protocols used: Urinary Catheter (e.g., Benson) Symptoms and Qkwvvawdz-HVEJS-CP [facility] [id number] Miscellaneous Notes* Telephone Encounter - Emerald Slater RN - 12/18/2023 4:02 PM EDT S: Patient's spoke with [facility] nurse regarding catheter leaking where it is connected to the collection bag. B: Onset of symptoms/concern yesterday, states that taping it did not resolve the leaking. A: States there is not any leakage around the insertion site, there is still a good amount of urinedraining into the bag. Denies abdominal pain, fever. She reports that leakage is where the tube is connected to the bag. R: Patient's states that they have a home health care nurse. JARRETT Rn advised her to contact [facility] to see if they are able to replace the catheter. Patient's verbalized understanding. No further needs at this time. Reason for Disposition [1] Catheter is broken or cracked AND [2] still works (functioning normally) Protocols used: Urinary Catheter (e.g., Benson) Symptoms and Gijolbtvt-HHHTY-YP documented in this encounterSUniversity Hospitals Elyria Medical [id number] Miscellaneous Notes* Perioperative Nursing Note - Karen Chong RN - 12/11/2023 3:18 PM EDT Discharged to home . Accompanied by . AVS and education reviewed with patient and , both verbalized understanding. Mode of transportation private vehicle Belongings sent. * Op Note - Rikki Casas MD - 12/11/2023 1:25 PM EDT OPERATIVE NOTE Patient Name: Jorge Covington : [...] in the dorsal lithotomy position the patient wassterilely prepped and draped. The cystoscope was advanced into the bladder under direct vision. No urethral abnormalities had been encountered. With the water off the base of the bladder was inspected no stones were noted. Complete inspection of the bladder showed no tumors or significant mucosal abnormalities. The bladder was distended to full capacity. On the abdominal wall, in the midline 2 cmsuperior to the pubic symphysis, a small incision [...] of the trocar was withdrawn. A 14 Estonian catheter was advanced through the trocar. The balloon was inflated to 10 cc, the remainder of thetrocar was withdrawn. The catheter could be easily [...] area in stable condition. documented in this [facility]09-13-2024 Note* Perioperative Nursing Note - Karen Chong RN - 12/11/2023 3:18 PM EDT Discharged to home . Accompanied by . AVS and education reviewed with patient and , both verbalized understanding. Mode of transportation private vehicle Belongings sent. [facility] [id number] Note* Perioperative Nursing Note - Karen Chong RN - 12/11/2023 3:18 PM EDT Discharged to home . Accompanied by . AVS and education reviewed with patient and , both verbalized understanding. Mode of transportation private vehicle Belongings sent. [facility] [id number] NoteDischarged to home . Accompanied by . AVS and education reviewed with patient and , both verbalized understanding. Mode of transportation private vehicle Belongings sent.[facility]09-13-2024 Hospital Discharge instructions* Discharge Instructions* Rikki Casas MD - 12/11/2023 2:10 PM EDT Post-Operative Instructions These are general instructions for you to follow after your surgery. Your doctor or a member of hisstaff will outline any additional or special instructions that pertain to you. Activity: You are encouraged to increase your physical activity back to the levels of what you did prior to the procedure. You may go up and down steps, but please rest when you are tired. Any limitson lifting will be discussed with you or [...] of breath, difficulty breathing, or pain or unevenswelling in your legs--please go to the Emergency [...] . Rikki Casas M.D. documented in this [facility]09-13-2024 NotePatient: Jorge Covington Procedure Summary Date: 12/11/23 Room / Location: [facility] / [facility] OR Anesthesia Start: 8 Anesthesia Stop: 1354 Procedures: CYSTOSCOPY (Urethra) possible trocar suprapubic cystostomy [...] Allowed opportunity for questions and acknowledgement of understanding.[facility]09-13-2024 NotePatient: Jorge Covington Procedure Summary Date: 12/11/23 Room / Location: [facility] / [facility] OR Anesthesia Start: 1328 [...] discharged once all PACU criteria has been met.[facility]09-13-2024 NoteAirway Date/Time: 12/11/2023 1:29 PM Urgency: scheduled Airway not difficult General Information and Staff Patient location during procedure: Procedural Resident/SECURITY CONTROL CENTER OPERATOR: Montana Iraheta APRN - SECURITY CONTROL CENTER OPERATOR Performed: SECURITY CONTROL CENTER OPERATOR Indications and Patient Condition Indications for airway management: anesthesia Sedation level: Asleep Preoxygenated: yes Patient position: sniffing MILS maintained throughout Mask difficulty assessment: 1 - vent by mask Final Airway Details Final airway type: supraglottic airway Successful airway: Igel Size 5 ETT size (mm): 7.0 Number of attempts at approach: 1 Ventilation between attempts: none Number of other approaches attempted: [address] [place], [place] [id number] Note* Op Note - Rikki Casas MD - 12/11/2023 1:25 PM EDT OPERATIVE NOTE Patient Name: Jorge Covington : [...] in the dorsal lithotomy position the patient wassterilely prepped and draped. The cystoscope was advanced into the bladder under direct vision. No urethral abnormalities had been encountered. With the water off the base of the bladder was inspected no stones were noted. Complete inspection of the bladder showed no tumors or significant mucosal abnormalities. The bladder was distended to full capacity. On the abdominal wall, in the midline 2 cmsuperior to the pubic symphysis, a small incision [...] of the trocar was withdrawn. A 14 Estonian catheter was advanced through the trocar. The balloon was inflated to 10 cc, the remainder of thetrocar was withdrawn. The catheter could be easily irrigated. Excellent hemostasis was in place. Cystoscope was withdrawn. The suprapubic cystostomy was secured to the skin with suture. The catheter was again irrigated to confirm that the securing suture had not occluded the lumen. Dressing was applied. Catheter was connected to drainage bag. The patient was transported to the recovery area in stable condition. [facility]09-13-2024 Note* Op Note - Rikki Casas MD - 12/11/2023 1:25 PM EDT OPERATIVE NOTE Patient Name: Jorge Covington : [...] in the dorsal lithotomy position the patient wassterilely prepped and draped. The cystoscope was advanced into the bladder under direct vision. No urethral abnormalities had been encountered. With the water off the base of the bladder was inspected no stones were noted. Complete inspection of the bladder showed no tumors or significant mucosal abnormalities. The bladder was distended to full capacity. On the abdominal wall, in the midline 2 cmsuperior to the pubic symphysis, a small incision [...] of the trocar was withdrawn. A 14 Estonian catheter was advanced through the trocar. The balloon was inflated to 10 cc, the remainder of thetrocar was withdrawn. The catheter could be easily irrigated. Excellent hemostasis was in place. Cystoscope was withdrawn. The suprapubic cystostomy was secured to the skin with suture. The catheter was again irrigated to confirm that the securing suture had not occluded the lumen. Dressing was applied. Catheter was connected to drainage bag. The patient was transported to the recovery area in stable condition. [facility] [id number] History and physical note* Rikki Casas MD - 12/11/2023 11:52 AM EDT [facility] Comprehensive History and Physical Name: [...] surgical procedure and anesthestic at this surgical facility.} Impression Urinary incontinence Plan Cystoscopy, trochar suprapubic cystostomy All aspects of the procedure, along with the pros & cons of intervention and the potential associated risks & complications have been discussed with the patient. Questions have been answered,and informed consent has been obtained. Electronically signed by: Rikki Casas MD, 12/11/2023 at 1:23 PM [facility] [email or web address] Work Phone: 1(609) 563-560209-13-2024 History and physical note* Rikki Casas MD - 12/11/2023 11:52 AM EDT [facility] Comprehensive History and Physical Name: [...] surgical procedure and anesthestic at this surgical facility.} Impression Urinary incontinence Plan Cystoscopy, trochar suprapubic cystostomy All aspects of the procedure, along with the pros & cons of intervention and the potential associated risks & complications have been discussed with the patient. Questions have been answered,and informed consent has been obtained. Electronically signed by: Rikki Casas MD, 12/11/2023 at 1:23 PM documented in this [facility]09-13-2024 [facility] Comprehensive History and Physical Name: Jorge Covington [...] surgical procedure and anesthestic at this surgical facility.} Impression Urinary incontinence Plan Cystoscopy, trochar suprapubic cystostomy All aspects of the procedure, along with the pros & cons of intervention and the potential associated risks & complications have been discussed with the patient. Questions have been answered, and informed consent has been obtained. Electronically signed by: Rikki Casas MD, 12/11/2023 at 1:23 [facility]09-12-2024 NotePatient: Jorge Covington Procedure Information Date/Time: 12/11/23 1330 Procedures: CYSTOSCOPY (Urethra) - 1 hour-Jones's trochar equipment will be needed possible trocar suprapubic cystostomy (Abdomen) Location: [facility] OR 2 / [facility] OR Surgeons: [...] ADOLFO Screening Labs: No results found for: WBC, HGB, HCT, MCV, PLT No results found for: SODIUM, NA, POTASSIUM, K, CHLORIDE, CL, CO2, BUN, CREATININE, GLUCOSE, CALCIUM, PROT, BILIRUBINFL, ALKPHOS, AST, ALT, EGFR, GLOB No echocardiogram results found for the past 14 days No results found for this or any previous visit. Equipment Requests: Additional Equipment RequestsMarlette [facility] Hospital09-09-2024 Telephone encounter Note* Telephone Encounter - Rikki Casas MD - 12/07/2023 2:46 PM EDT error [facility] [id number] Miscellaneous Notes* Telephone Encounter - Rikki Casas MD - 12/07/2023 2:46 PM EDT error documented in this encounterSUniversity Hospitals Elyria Medical [id number] Telephone encounter Note* Telephone Encounter - Brooke Ochoa - 09/10/2023 9:21 AM EDT Patient's called office to request an appt at the [place] office. Appt RS to 10/23/[address] Casas in [place]. [facility] [id number] Miscellaneous Notes* Telephone Encounter - Brooke Ochoa - 09/10/2023 9:21 AM EDT Patient's called office to request an appt at the [place] office. Appt RS to 10/23/[address] Casas in [place]. * Telephone Encounter - Cristy Smith - 09/07/2023 1:43 PM EDT Received message via [employer] that pt had been trying to contact office to schedule appt. Returned calland scheduled LUBE MAN appt 10/12/[address] Carmona at [facility] [place]. * Telephone Encounter - Fiorella Willoughby - 08/19/2023 10:34 AM EDT Received referral from [facility] [employer] uploaded into chart. New patient appt needed. Called pt LVM to call back to schedule. documented in this encounterSUniversity Hospitals Elyria Medical [id number] Telephone encounter Note* Telephone Encounter - Cristy Smith - 09/07/2023 1:43 PM EDT Received message via [employer] that pt had been trying to contact office to schedule appt. Returned calland scheduled LUBE MAN appt 10/12/[address] Carmona at [facility] location. [facility] [id number] Miscellaneous Notes* Telephone Encounter - Cristy Smith - 09/07/2023 1:43 PM EDT Received message via [employer] that pt had been trying to contact office to schedule appt. Returned calland scheduled LUBE MAN appt 10/12/[address] Carmona at [facility] location. * Telephone Encounter - Fiorella Willoughby - 08/19/2023 10:34 AM EDT Received referral from [facility] [employer] uploaded into chart. New patient appt needed. Called pt LVM to call back to schedule. documented in this [facility]05-22-2024 Telephone encounter Note* Telephone Encounter - Fiorella Willoughby - 08/19/2023 10:34 AM EDT Received referral from [facility] [employer] uploaded into chart. New patient appt needed. Called pt LVM to call back to schedule. [facility] [id number] Miscellaneous Notes* Telephone Encounter - Fiorella Willoughby - 08/19/2023 10:34 AM EDT Received referral from [facility] [employer] uploaded into chart. New patient appt needed. Called pt LVM to call back to schedule. documented in this [facility]04-24-2024 Progress note Author Kemi Rubio [facility] July 22, 2023 5:15pm Note Date/Time July 22, 2023 4:0 9pm [facility] [address] [place] [address] Progress Note - Wound Care 07/22/23 1608 MR#: [id number] Acct: [id number] Name: JORGE COVINGTON Rep #:[id number] : 1955 67 From: Kemi santiago LUBE MAN LUBE MAN-C PCP: Dr. Nathanael Cardona MD Status:RE G RCR Location: History of Present Illness Date of Service: 07/22/23 Chief Complaint: Right ischial pressure sore, Stage IV. History of Wound: This is a 67-year-old white male who presented to the wound healing center with complaints of pressure ulcer to right buttock area with extension to the right ischial bone. This started in October,. Patient's was treating with OTC creams and keeping area clean. The ulcer starting increasing in size and went to the Emergency Department on 02/08/22. CT showed subcutaneous and deep soft tissue involvement and possible early abscess formation. The bone was not addressed. He had a wound culture on 02/28/22. It was positive for E. coli, Staphylococcus aureus, and Clostridium perfringens. He was treated with Augmentin. The patient has very limited mobility as a result of a prior spine injury/surgery. He utilizes a wheelchair at all times. He has not been using his billy lift at home to transfer but has been using a board to slide himself from his bed to chair at home. He sits in his wheelchair almost all day, not really able to change positions. They finally obtained a low air loss overlay totheir regular mattress at home. A roho cushion was ordered for his wheelchair. Patient is a smoker. Surgery 04/28/22 - Excision right ischial pressure sore, Stage IV, with partial ostectomy for osteomyelitis. Size of wound 8 x 7 x 4.5 cm. Operative tissue cultures positive for MSSA and Cutibacterium acnes. Bone cultures positive for MSSA and Corynebacterium striatum. He is being treated with Augmentin. Pathology from surgery 04/28/22 showed chronic reparative and reactive change. No evidence of acute osteomyelitis. He had a diverting colostomy placed on 11/21/[address] Romero. Wound culture from 07/14/22 positive for Staphylococcus aureus and he was treatedwith Augmentin. Wound culture obtained 11/10/22 which was positive for Staphylococcus aureus and he was treated with Augmentin. Wound culture obtained 04/06/23 which was positive for Staphylococcus aureus, Corynebacterium striatum, and Enterococcus faecalis. He is being treated with Augmentin. Prealbumin 13.4 on 04/29/22. Encourage nutritional supplementation with protein to help the healing process. He was seen in the ED on 05/02/22 because of a couple falls he experienced since his surgery. CT of his pelvis showed some bony disruption at the level of the inferior pubic ramus suggests a mild osteomyelitis. Today he denies fever. His appetite is ok. Progress of Wound: Stable. Bone still palpable but covered with granulation tissue. It is still uncomfortable when palpating the bone. Wound bed is nice pink color. He continues to have maceration on the distal edges of the ulcer. His states that the Aquacel-Ag is packed into the base of the tunnel and ulcer, but it balls up and comes out. This may be caused when he is moving/transferring, it comes out of the tunnel. Objective Data Objective Data Vital Signs: Vital Signs Temp Pulse Resp BP O2 Del Method 96.6 F L 90 18 154/105 H Room Air 07/22/23 13:04 07/22/23 13:04 07/22/23 13:04 07/22/23 13:04 06/29/23 09:09 Oxygen Delivery Method Room Air Weight: 220 lb Body Mass Index (BMI) 35.5 Charges/Coding Procedures Integumentary 111xxx-113xx: 26117 Lillian musc/fascia 20 sq cm/< (ICD-10 - L89.314, M86.9, F17.200, Z99.3) Debridement Note Debridement Note Wound debrided: #5 Right ischial area. Laterality: Right Wound Grade/Stage: IV. Type of Debridement: Excisional debridement Anesthesia Used: 5% Lidocaine Gel Depth: Down to and including healthy tissue, in the subcutaneous layer, to muscle and to bone (bone is palpable but not exposed.) Percentage of wound debrided: 100 Instrument Used: 7mm curette Tissue Removed: subcutaneous tissue and muscle. Severity: Fat Layer Exposed (muscle is exposed. bone is palpable but not exposed. Bone was not debrided today.) Amount of bleeding with debridement: Mild Bleeding Controlled with: Pressure and Compression and gauze Patient tolerated procedure: Patient tolerated procedure well Debridement Free Text: Bone palpated but not debrided. He has a tunnel at 12 o'clock that is stable. The base of the ulcer is nice beefy pink color. He continues to have maceration around the edges of the ulcer. Post-Debridement Measurements and Additional Note: Post-Debridement Measurements/Treatment - Nurse 1 - General Ulcer Assessment Start: 06/29/23 09:09 Freq: Status: Active Protocol: DILCIA.LOWEXT Activity Type Activity Date Activity User E-sign Co-sign Detail Recorded Client Recorded Date Recorded By Document 06/29/23 09:09 [facility] Desktop 06/29/23 09:11 BM Document 07/22/23 13:04 DL Desktop 07/22/23 13:13 DL 06/29/23 07/22/23 09:09 13:04 - Today's Visit Information Type of service Follow-up Visit Follow-up Visit (Physician/HEAD BAKER (Physician/HEAD BAKER ) ) Arrival Mode Wheelchair Wheelchair Transfer Assistance Billy Lift Billy Lift Transfer Assist (Other) 3 x2 Patient Identification Verified (Name & Yes Yes ) Patient Requires Transmission-Based No Precautions Height and Weight Body Mass Index (BMI) 35.5 35.5 BMI Classification Obese Obese Vital Signs Temperature (97.8 F-99.1 F) 98.1 F 96.6 F L Temperature Source Temporal Temporal Pulse Rate (60-100) 74 90 Pulse Location Monitor Monitor Respiratory Rate (12-18) 16 18 Respiratory rate source Observation Observation Oxygen Delivery Method Room Air Blood Pressure (90/60-120/80) 151/87 H 154/105 H Blood Pressure Mean (mm Hg) 108 121 Source Monitor Monitor Position Sitting Blood Pressure Location Left Forearm History Since Last Visit- (Skip if this is Patient's initial visit) Have you changed medications since your No No last visit? Any new allergies or adverse reactions No No Had a fall/change in ADL's that may No No increase risk of falls Signs or symptoms of abuse and/or No No neglect since last visit Have you been in the hospital since your No last visit? Has dressing in place as prescribed Yes Yes Has compression in place as prescribed N/A N/A Has offloadiing in place as prescribed N/A Yes Experienced any changes in pain level or No No management Left Footwear Regular Shoe Right Footwear Regular Shoe Pain Scale: 0-10 Numeric Is Patient Pain Free? Yes Yes - Nurse 1 - General Ulcer Measurement Start: 06/29/23 09:09 Freq: Status: Active Protocol: Activity Type Activity Date Activity User E-sign Co-sign Detail Recorded Client Recorded Date Recorded By Document 06/29/23 09:09 [facility] Desktop 06/29/23 09:11 BMF Document 07/22/23 13:04 DL Desktop 07/22/23 13:13 DL 06/29/23 07/22/23 09:09 13:04 Wound Center Nurse 1 #5- R ischium -Combined with other wound No -Current Size (cm) - Length 5.6 6 -Current Size (cm) - Width 4 4.4 -Current Size (cm) - Depth 2.8 2.1 -Total Square Cm 22.4 26.4 -Date of Last Picture (Recall this 06/29/23 field) -Photo Taken Yes Yes -Epithelialization Small 1-33% -Tunneling No -Undermining/Tunneling Yes -Undermining/Tunneling Starts (O'clock 12 ) -Undermining/Tunneling Ends (O'clock) 2 -Maximum Distance (cm) 6 -Circular Undermining No -Exudate Amt Large Medium -Exudate Type Serosanguineous Serosanguineous -Wound Margin Distinct, Thickened & Outline Rolled Under Attached -Granulation Amt Large (67-100%) Large (67-100%) -Granulation Quality Red Red -Slough/Fibrin Yes -Necrosis Amt Small (1-33%) None Present (0 %) -Necrotic Tissue Type Adherent Slough -Structure Exposed N/A -Texture (Michelle-wound Skin Appearance) Assessed, Scarring Scarring -Moisture (Michelle-wound Skin Appearance) Assessed Maceration -Color (Michelle-wound Skin Appearance) Assessed No Abnormality -Temperature (Michelle-wound Skin No Abnormality No Abnormality Appearance) (Pt Warm) (Pt Warm) -Tenderness on Palpation (Michelle-wound No No Skin Appearance) -Ulcer Cleansing Soap and Water Soap and Water -Foul Odor after Cleansing No No -Anesthetic Used 4% Lidocaine 4% Lidocaine Solution Solution DILCIA - Nurse 2 - General Ulcer CM Notes Start: 06/29/23 09:09 Freq: Status: Active Protocol: Activity Type Activity Date Activity User E-sign Co-sign Detail Recorded Client Recorded Date Recorded By Document 06/29/23 09:34 JF Laptop 06/29/23 09:35 JF Document 07/22/23 13:28 MW Desktop 07/22/23 13:36 MW 06/29/23 07/22/23 09:34 13:28 Wound Center Nurse 2 #5- R ischium -Time 09:34 13:29 -Correct Patient Yes Yes -Correct Side, Site, Position Yes Yes -Correct Procedure Yes Yes -Procedure Performed Yes Yes -Type of Procedure Debridement Debridement -Clinical Debridement Muscle / Fascia Muscle / Fascia -Tissue Removed Muscle,Fascia Muscle -Post Debridement (cm) - Length 5.7 5.0 -Post Debridement (cm) - Width 4.3 3.5 -Post Debridement (cm) - Depth 2.1 6.4 -Total Square (Post) (cm) 24.51 17.50 -Area of Debridement (cm) - Length 5.7 5.0 -Area of Debridement (cm) - Width 4.3 3.5 -Total Square (Area) (cm) 24.51 17.50 -Tunneling Yes No -Tunneling Position (O'clock) 12 -Tunneling Distance (cm) 7.8 -Undermining/Tunneling No No -Circular Undermining No No -Wound/Ulcer Outcome Not Healed Not Healed -Ulcer Cleansing Rinsed/ Rinsed/ Irrigated with Irrigated with Saline Saline -Foul Odor after Cleansing No No -Bioengineered Tissue No No -Bleeding Controlled with Pressure Pressure -Treatment Response Procedure Procedure Tolerated Well Tolerated Well -Offloading No No -Pressure Reduction Wheelchair cushion -Debridement - Muscle / Fascia, 1st Yes Yes 20sq cm -Debridement, Muscle/Fascia, ea addt'l 1 20sq cm or part thereof Pain Scale: 0-10 Numeric Is Patient Pain Free? Yes Yes WC - Nurse 3 - General Ulcer D/C NN Start: 06/29/23 09:09 Freq: Status: Active Protocol: Activity Type Activity Date Activity User E-sign Co-sign Detail Recorded Client Recorded Date Recorded By Document 06/29/23 09:40 KW Desktop 06/29/23 09:41 KW Document 07/22/23 13:41 DL Desktop 07/22/23 13:42 DL 06/29/23 07/22/23 09:40 13:41 Wound Care Center Nurse 3 #5- R ischium -Ulcer Cleansing Rinsed/ Irrigated with Saline -Foul Odor after Cleansing No -Primary Dressing Applied Aquacel AG 4x4 -Other Dressing dakins -Primary Dressing Covered/Secured with Dry Gauze, Secured with Tape -Other Covering ABD -Aquacel AG 4x4 1 Treatment Response Procedure Tolerated Well Pain Scale: 0-10 Numeric Is Patient Pain Free? Yes Yes WC - Visit Discharge Discharge Condition Stable Stable Ambulatory Status Ambulatory Wheelchair Transportation Private Auto Medication Reconcilliation completed & No provided to patient/care provider Clinical Summary of Care Provided Yes Facility Type Home Health Orders Sent Yes Assessment/Plan Assessment/Plan (1) Right ischial pressure sore, stage 4: CODE(S): L89.314 - Pressure ulcer of right buttock, stage 4 (2) Osteomyelitis of right side of pelvis: CODE(S): M86.9 - Osteomyelitis, unspecified (3) Smoker: CODE(S): F17.200 - Nicotine dependence, unspecified, uncomplicated (4) Wheelchair dependent: CODE(S): Z99.3 - Dependence on wheelchair PLAN: Plan Wound care - Silver alginate (preferably name brand such as Silvercel, so it does not fall apart when removing the dressing) into the tunnel and base of ulcer covered with fluffed gauze and toppe by ABD/super absorber 1-2 times per day and as needed. They have home health to help assist with his dressing changes. Operative tissue cultures positive for MSSA and Cutibacterium acnes. Bone cultures positive for MSSA and Corynebacterium striatum. He completed Augmentin. He was seen in the ED on 05/02/22 because of a couple falls he experienced since his surgery. CT of his pelvis showed some bony disruption at the level of the inferior pubic ramus suggests a mild osteomyelitis. Prealbumin 13.4 on 04/29/22. Anticipate increased metabolic demands from the infection. Encourage nutritional supplementation with protein to help the healing process. A wound culture was obtained on 07/14/22, which was positive for Staphylococcus aureus and was treated with Augmentin. Wound culture obtained 11/10/22 which was positive for MSSA and he completed the Augmentin. Wound culture obtained 04/06/23 which was positive for Staphylococcus aureus, Corynebacterium striatum, and Enterococcus faecalis. He is being treated with Augmentin, which he just refilled. Patient had a diverting colostomy on 11/21/22. The diversion of the stool has made a noticeable difference in the appearance of the ulcer. Encouraged increased protein intake to help with wound healing. Patient states that he stopped smoking after his wound care visit on 05/19/23. He continues to deny smoking. Stressed importance of not smoking how how it impacts wound healing and potential future surgeries, including flaps. Follow up 2 weeks. From previous note from Dr. Messina: The ulcer is ready for further operative debridement in preparation for closure with a fasciocutaneous flap or a muscle flap since he is wheelchair dependent. The patient has expressed interest in pursuing further surgery with the goal of a closed wound. Patient is a smoker. Encouraged patient to stop smoking as it may have deleterious effects on wound healing. It will affect the healing of the flap andmay lead to incisional breakdown and recurrence of the pressure sore. He stateshe will try to stop smoking. Since this is an elective procedure, we are in no hurry to proceed. So will check a nicotine level prior to any surgery that is scheduled. Also would like to maximize his nutrition which would maximize the healing process. His last Prealbumin from 04/29/22 was 13.4. Ideally would like to see it above 20. At the time of the excision of the pressure sore, will check soft tissue and bone cultures. A positive culture will necessitate antibiotic therapy. This way we will know which antibiotics to use perioperatively. If the culture showsMRSA or Pseudomonas or MDR organisms, I would treat for 6 weeks before proceeding with wound closure. Postoperatively he will be on bedrest and would most likely benefit from a stay at an [facility] during this time. Patient was informed of the risks and complications of the procedure including alternatives to surgery. These were discussed with the patient personally. Patient voices understanding and wishes to proceed. Potential risks and complications included but not inclusive of bleeding, infection, seroma, hematoma, bruising, swelling, prolonged need for drains, lossof sensation to skin, partial or complete loss of skin flap and/or skin graft, wound breakdown, need for wound care, poor scarring, poor aesthetic outcome, intra operative cardiac or neurologic events, DVT, PE, and reaction to anesthesia. 07/22/23 0755 <Electronically signed by Kemi Rubio NP [facility]> Cosigner Signature (if applicable): CC: ~ Signed [facility] Work Phone: [phone] Progress note Author Kemi Rubio [facility] June 30, 2023 9:52am Note Date/Time June 29, 2023 12:2 8pm [facility] [address] [place] [address] Progress Note - Wound Care 06/29/23 1228 MR#: [id number] Acct: [id number] Name: JORGE COVINGTON Rep #:[id number] 2 : 1955 67 From: Kemi santiago NP [facility] PCP: Dr. Nathanael Cardona MD Status:RE G RCR Location: History of Present Illness Date of Service: 06/29/23 Chief Complaint: Right ischial pressure sore, Stage IV. History of Wound: This is a 67-year-old white male who presented to the wound healing center with complaints of pressure ulcer to right buttock area with extension to the right ischial bone. This started in October,. Patient's was treating with OTC creams and keeping area clean. The ulcer starting increasing in size and went to the Emergency Department on 02/08/22. CT showed subcutaneous and deep soft tissue involvement and possible early abscess formation. The bone was not addressed. He had a wound culture on 02/28/22. It was positive for E. coli, Staphylococcus aureus, and Clostridium perfringens. He was treated with Augmentin. The patient has very limited mobility as a result of a prior spine injury/surgery. He utilizes a wheelchair at all times. He has not been using his billy lift at home to transfer but has been using a board to slide himself from his bed to chair at home. He sits in his wheelchair almost all day, not really able to change positions. They finally obtained a low air loss overlay totheir regular mattress at home. A roho cushion was ordered for his wheelchair. Patient is a smoker. Surgery 04/28/22 - Excision right ischial pressure sore, Stage IV, with partial ostectomy for osteomyelitis. Size of wound 8 x 7 x 4.5 cm. Operative tissue cultures positive for MSSA and Cutibacterium acnes. Bone cultures positive for MSSA and Corynebacterium striatum. He is being treated with Augmentin. Pathology from surgery 04/28/22 showed chronic reparative and reactive change. No evidence of acute osteomyelitis. He had a diverting colostomy placed on 11/21/[address] Romero. Wound culture from 07/14/22 positive for Staphylococcus aureus and he was treatedwith Augmentin. Wound culture obtained 11/10/22 which was positive for Staphylococcus aureus and he was treated with Augmentin. Wound culture obtained 04/06/23 which was positive for Staphylococcus aureus, Corynebacterium striatum, and Enterococcus faecalis. He is being treated with Augmentin. Prealbumin 13.4 on 04/29/22. Encourage nutritional supplementation with protein to help the healing process. He was seen in the ED on 05/02/22 because of a couple falls he experienced since his surgery. CT of his pelvis showed some bony disruption at the level of the inferior pubic ramus suggests a mild osteomyelitis. Today he denies fever. His appetite is ok. Progress of Wound: Stable. Bone still palpable but covered with granulation tissue. It is still uncomfortable when palpating the bone. Wound bed is nice pink color. He continues to have maceration on the distal edges of the ulcer. He has received a new wheel chair. He states he has continued to not smoke cigarettes. He is interested in surgical options for treatment. He states that they now have a working van to transport him in. Objective Data Objective Data Vital Signs: Vital Signs Temp Pulse Resp BP O2 Del Method 98.1 F 74 16 151/87 H Room Air 06/29/23 09:09 06/29/23 09:09 06/29/23 09:09 06/29/23 09:09 06/29/23 09:09 Oxygen Delivery Method Room Air Weight: 220 lb Body Mass Index (BMI) 35.5 Charges/Coding Procedures Integumentary 111xxx-113xx: 68701 Lillian musc/fascia 20 sq cm/< (ICD-10 - L89.314, M86.9, F17.200, Z99.3) Add On Codes: 76358 Lillian musc/fascia add-on Debridement Note Debridement Note Post-Debridement Measurements and Additional Note: Post-Debridement Measurements/Treatment - Nurse 1 - General Ulcer Assessment Start: 06/29/23 09:09 Freq: Status: Active Protocol: KIRA Activity Type Activity Date Activity User E-sign Co-sign Detail Recorded Client Recorded Date Recorded By Document 06/29/23 09:09 [facility] Desktop 06/29/23 09:11 [facility] 06/29/23 09:09 WC - Today's Visit Information Type of service Follow-up Visit (Physician/HEAD BAKER ) Arrival Mode Wheelchair Transfer Assistance Billy Lift Transfer Assist (Other) 3 Patient Identification Verified (Name & Yes ) Patient Requires Transmission-Based No Precautions Height and Weight Body Mass Index (BMI) 35.5 BMI Classification Obese Vital Signs Temperature (97.8 F-99.1 F) 98.1 F Temperature Source Temporal Pulse Rate (60-100) 74 Pulse Location Monitor Respiratory Rate (12-18) 16 Respiratory rate source Observation Oxygen Delivery Method Room Air Blood Pressure (90/60-120/80) 151/87 H Blood Pressure Mean (mm Hg) 108 Source Monitor Position Sitting Blood Pressure Location Left Forearm History Since Last Visit- (Skip if this is Patient's initial visit) Have you changed medications since your No last visit? Any new allergies or adverse reactions No Had a fall/change in ADL's that may No increase risk of falls Signs or symptoms of abuse and/or No neglect since last visit Have you been in the hospital since your No last visit? Has dressing in place as prescribed Yes Has compression in place as prescribed N/A Has offloadiing in place as prescribed N/A Experienced any changes in pain level or No management Left Footwear Regular Shoe Right Footwear Regular Shoe Pain Scale: 0-10 Numeric Is Patient Pain Free? Yes - Nurse 1 - General Ulcer Measurement Start: 06/29/23 09:09 Freq: Status: Active Protocol: Activity Type Activity Date Activity User E-sign Co-sign Detail Recorded Client Recorded Date Recorded By Document 06/29/23 09:09 [facility] [employer] 06/29/23 09:11 [facility] 06/29/23 09:09 Wound Center Nurse 1 #5- R ischium -Combined with other wound No -Current Size (cm) - Length 5.6 -Current Size (cm) - Width 4 -Current Size (cm) - Depth 2.8 -Total Square Cm 22.4 -Date of Last Picture (Recall this 06/29/23 field) -Photo Taken Yes -Epithelialization Small 1-33% -Tunneling No -Undermining/Tunneling Yes -Undermining/Tunneling Starts (O'clock 12 ) -Undermining/Tunneling Ends (O'clock) 2 -Maximum Distance (cm) 6 -Circular Undermining No -Exudate Amt Large -Exudate Type Serosanguineous -Wound Margin Distinct, Outline Attached -Granulation Amt Large (67-100%) -Granulation Quality Red -Slough/Fibrin Yes -Necrosis Amt Small (1-33%) -Necrotic Tissue Type Adherent Slough -Texture (Michelle-wound Skin Appearance) Assessed, Scarring -Moisture (Michelle-wound Skin Appearance) Assessed -Color (Michelle-wound Skin Appearance) Assessed -Temperature (Michelle-wound Skin No Abnormality Appearance) (Pt Warm) -Tenderness on Palpation (Michelle-wound No Skin Appearance) -Ulcer Cleansing Soap and Water -Foul Odor after Cleansing No -Anesthetic Used 4% Lidocaine Solution WC - Nurse 2 - General Ulcer CM Notes Start: 06/29/23 09:09 Freq: Status: Active Protocol: Activity Type Activity Date Activity User E-sign Co-sign Detail Recorded Client Recorded Date Recorded By Document 06/29/23 09:34 Laptop 06/29/23 09:35 06/29/23 09:34 Wound Center Nurse 2 -Time 09:34 -Correct Patient Yes -Correct Side, Site, Position Yes -Correct Procedure Yes -Procedure Performed Yes -Type of Procedure Debridement -Clinical Debridement Muscle / Fascia -Tissue Removed Muscle,Fascia -Post Debridement (cm) - Length 5.7 -Post Debridement (cm) - Width 4.3 -Post Debridement (cm) - Depth 2.1 -Total Square (Post) (cm) 24.51 -Area of Debridement (cm) - Length 5.7 -Area of Debridement (cm) - Width 4.3 -Total Square (Area) (cm) 24.51 -Tunneling Yes -Tunneling Position (O'clock) 12 -Tunneling Distance (cm) 7.8 -Undermining/Tunneling No -Circular Undermining No -Wound/Ulcer Outcome Not Healed -Ulcer Cleansing Rinsed/ Irrigated with Saline -Foul Odor after Cleansing No -Bioengineered Tissue No -Bleeding Controlled with Pressure -Treatment Response Procedure Tolerated Well -Offloading No -Pressure Reduction Wheelchair cushion -Debridement - Muscle / Fascia, 1st Yes 20sq cm -Debridement, Muscle/Fascia, ea addt'l 1 20sq cm or part thereof Pain Scale: 0-10 Numeric Is Patient Pain Free? Yes - Nurse 3 - General Ulcer D/C NN Start: 06/29/23 09:09 Freq: Status: Active Protocol: Activity Type Activity Date Activity User E-sign Co-sign Detail Recorded Client Recorded Date Recorded By Document 06/29/23 09:40 KW Desktop 06/29/23 09:41 KW 06/29/23 09:40 Wound Care Center Nurse 3 #5- R ischium -Primary Dressing Applied Aquacel AG 4x4 -Primary Dressing Covered/Secured with Dry Gauze, Secured with Tape -Aquacel AG 4x4 1 Pain Scale: 0-10 Numeric Is Patient Pain Free? Yes WC - Visit Discharge Discharge Condition Stable Ambulatory Status Ambulatory Medication Reconcilliation completed & No provided to patient/care provider Clinical Summary of Care Provided Yes Assessment/Plan Assessment/Plan (1) Right ischial pressure sore, stage 4: CODE(S): L89.314 - Pressure ulcer of right buttock, stage 4 (2) Osteomyelitis of right side of pelvis: CODE(S): M86.9 - Osteomyelitis, unspecified (3) Smoker: CODE(S): F17.200 - Nicotine dependence, unspecified, uncomplicated (4) Wheelchair dependent: CODE(S): Z99.3 - Dependence on wheelchair PLAN: Plan Wound care - Silver alginate (preferably name brand such as Silvercel, so it does not fall apart when removing the dressing) into the tunnel and base of ulcer covered with fluffed gauze and toppe by ABD/super absorber 1-2 times per day and as needed. They have home health to help assist with his dressing changes. Operative tissue cultures positive for MSSA and Cutibacterium acnes. Bone cultures positive for MSSA and Corynebacterium striatum. He completed Augmentin. He was seen in the ED on 05/02/22 because of a couple falls he experienced since his surgery. CT of his pelvis showed some bony disruption at the level of the inferior pubic ramus suggests a mild osteomyelitis. Prealbumin 13.4 on 04/29/22. Anticipate increased metabolic demands from the infection. Encourage nutritional supplementation with protein to help the healing process. A wound culture was obtained on 07/14/22, which was positive for Staphylococcus aureus and was treated with Augmentin. Wound culture obtained 11/10/22 which was positive for MSSA and he completed the Augmentin. Wound culture obtained 04/06/23 which was positive for Staphylococcus aureus, Corynebacterium striatum, and Enterococcus faecalis. He is being treated with Augmentin, which he just refilled. Patient had a diverting colostomy on 11/21/22. The diversion of the stool has made a noticeable difference in the appearance of the ulcer. Encouraged increased protein intake to help with wound healing. Patient states that he stopped smoking after his wound care visit on 05/19/23. He continues to deny smoking. Stressed importance of not smoking how how it impacts wound healing and potential future surgeries, including flaps. Follow up 2-[address] Messina to discuss operative debridement. From previous note from Dr. Messina: The ulcer is ready for further operative debridement in preparation for closure with a fasciocutaneous flap or a muscle flap since he is wheelchair dependent. The patient has expressed interest in pursuing further surgery with the goal of a closed wound. Patient is a smoker. Encouraged patient to stop smoking as it may have deleterious effects on wound healing. It will affect the healing of the flap andmay lead to incisional breakdown and recurrence of the pressure sore. He stateshe will try to stop smoking. Since this is an elective procedure, we are in no hurry to proceed. So will check a nicotine level prior to any surgery that is scheduled. Also would like to maximize his nutrition which would maximize the healing process. His last Prealbumin from 04/29/22 was 13.4. Ideally would like to see it above 20. At the time of the excision of the pressure sore, will check soft tissue and bone cultures. A positive culture will necessitate antibiotic therapy. This way we will know which antibiotics to use perioperatively. If the culture showsMRSA or Pseudomonas or MDR organisms, I would treat for 6 weeks before proceeding with wound closure. Postoperatively he will be on bedrest and would most likely benefit from a stay at an [facility] during this time. Patient was informed of the risks and complications of the procedure including alternatives to surgery. These were discussed with the patient personally. Patient voices understanding and wishes to proceed. Potential risks and complications included but not inclusive of bleeding, infection, seroma, hematoma, bruising, swelling, prolonged need for drains, lossof sensation to skin, partial or complete loss of skin flap and/or skin graft, wound breakdown, need for wound care, poor scarring, poor aesthetic outcome, intra operative cardiac or neurologic events, DVT, PE, and reaction to anesthesia. 06/30/23 0952 <Electronically signed by Kemi Rubio NP LUBE MAN-C> Cosigner Signature (if applicable): CC: ~ Signed [facility] Work Phone: [phone] Progress note Author Kemi Rubio [facility] June 15, 2023 5:01pm Note Date/Time June 15, 2023 1:0 9pm [facility] [address] [place] [address] Progress Note - Wound Care 06/15/23 1308 MR#: [id number] Acct: [id number] Name: JORGE COVINGTON Rep #:[id number] 3 : 1955 67 From: Kemi santiago NP LUBE MAN-C PCP: Dr. Nathanael Cardona MD Status:RE G RCR Location: History of Present Illness Date of Service: 06/15/23 Chief Complaint: Right ischial pressure sore, Stage IV. History of Wound: This is a 67-year-old white male who presented to the wound healing center with complaints of pressure ulcer to right buttock area with extension to the right ischial bone. This started in October,. Patient's was treating with OTC creams and keeping area clean. The ulcer starting increasing in size and went to the Emergency Department on 02/08/22. CT showed subcutaneous and deep soft tissue involvement and possible early abscess formation. The bone was not addressed. He had a wound culture on 02/28/22. It was positive for E. coli, Staphylococcus aureus, and Clostridium perfringens. He was treated with Augmentin. The patient has very limited mobility as a result of a prior spine injury/surgery. He utilizes a wheelchair at all times. He has not been using his billy lift at home to transfer but has been using a board to slide himself from his bed to chair at home. He sits in his wheelchair almost all day, not really able to change positions. They finally obtained a low air loss overlay totheir regular mattress at home. A roho cushion was ordered for his wheelchair. Patient is a smoker. Surgery 04/28/22 - Excision right ischial pressure sore, Stage IV, with partial ostectomy for osteomyelitis. Size of wound 8 x 7 x 4.5 cm. Operative tissue cultures positive for MSSA and Cutibacterium acnes. Bone cultures positive for MSSA and Corynebacterium striatum. He is being treated with Augmentin. Pathology from surgery 04/28/22 showed chronic reparative and reactive change. No evidence of acute osteomyelitis. He had a diverting colostomy placed on 11/21/[address] Romero. Wound culture from 07/14/22 positive for Staphylococcus aureus and he was treatedwith Augmentin. Wound culture obtained 11/10/22 which was positive for Staphylococcus aureus and he was treated with Augmentin. Wound culture obtained 04/06/23 which was positive for Staphylococcus aureus, Corynebacterium striatum, and Enterococcus faecalis. He is being treated with Augmentin. Prealbumin 13.4 on 04/29/22. Encourage nutritional supplementation with protein to help the healing process. He was seen in the ED on 05/02/22 because of a couple falls he experienced since his surgery. CT of his pelvis showed some bony disruption at the level of the inferior pubic ramus suggests a mild osteomyelitis. Today he denies fever. His appetite is ok. Progress of Wound: Stable. Bone still palpable but covered with granulation tissue. It is still uncomfortable when palpating the bone. Wound bed is nice pink color. He continues to have maceration on the distal edges of the ulcer. He states they are changing the dressing twice a day. He states he has continued to not smoke cigarettes. I spoke to his after his last visit and she does not want him referred to a tertiary center for further debridements or flap due to transportation issues. We will continue to manage him his ulcer here locally for the time being. Objective Data Objective Data Vital Signs: Vital Signs Temp Pulse Resp BP O2 Del Method 97.4 F L 85 16 144/89 H Room Air 06/15/23 09:34 06/15/23 09:34 06/15/23 09:34 06/15/23 09:34 06/15/23 09:34 Oxygen Delivery Method Room Air Weight: 220 lb Body Mass Index (BMI) 35.5 Charges/Coding Procedures Integumentary 111xxx-113xx: 10762 Lillian musc/fascia 20 sq cm/< (ICD-10 - L89.314, M86.9, F17.200, Z99.3) Debridement Note Debridement Note Wound debrided: #5 Right ischial area. Laterality: Right Wound Grade/Stage: IV. Type of Debridement: Excisional debridement Anesthesia Used: 5% Lidocaine Gel Depth: Down to and including healthy tissue, in the subcutaneous layer, to muscle and to bone (bone is palpable but not exposed.) Percentage of wound debrided: 100 Instrument Used: 7mm curette Tissue Removed: subcutaneous tissue and muscle. Severity: Fat Layer Exposed (muscle is exposed. bone is palpable but not exposed. Bone was not debrided today.) Amount of bleeding with debridement: Mild Bleeding Controlled with: Pressure and Compression and gauze Patient tolerated procedure: Patient tolerated procedure well Debridement Free Text: Bone palpated but not debrided. He has a tunnel at 12 o'clock that is stable. The base of the ulcer is nice beefy pink color. He continues to have maceration around the edges of the ulcer. Post-Debridement Measurements and Additional Note: Post-Debridement Measurements/Treatment - Nurse 1 - General Ulcer Assessment Start: 06/01/23 09:18 Freq: Status: Active Protocol: KIRA Activity Type Activity Date Activity User E-sign Co-sign Detail Recorded Client Recorded Date Recorded By Document 06/01/23 09:23 KW Desktop 06/01/23 09:26 KW Document 06/15/23 09:34 [facility] Desktop 06/15/23 09:39 BMF 06/01/23 06/15/23 09:23 09:34 - Today's Visit Information Type of service Follow-up Visit Follow-up Visit (Physician/HEAD BAKER (Physician/HEAD BAKER ) ) Arrival Mode Wheelchair Wheelchair Transfer Assistance Billy Lift Billy Lift Transfer Assist (Other) 2 Patient Identification Verified (Name & Yes Yes ) Patient Requires Transmission-Based No No Precautions Height and Weight Body Mass Index (BMI) 35.5 35.5 BMI Classification Obese Obese Vital Signs Temperature (97.8 F-99.1 F) 96.7 F L 97.4 F L Temperature Source Temporal Temporal Pulse Rate (60-100) 79 85 Pulse Location Monitor Monitor Respiratory Rate (12-18) 16 16 Respiratory rate source Observation Observation Oxygen Delivery Method Room Air Blood Pressure (90/60-120/80) 133/77 H 144/89 H Blood Pressure Mean (mm Hg) 95 107 Source Monitor Monitor Position Sitting Blood Pressure Location Right Forearm History Since Last Visit- (Skip if this is Patient's initial visit) Have you changed medications since your No No last visit? Any new allergies or adverse reactions No No Had a fall/change in ADL's that may No No increase risk of falls Signs or symptoms of abuse and/or No No neglect since last visit Have you been in the hospital since your No No last visit? Has dressing in place as prescribed Yes Yes Has compression in place as prescribed N/A N/A Has offloadiing in place as prescribed N/A Experienced any changes in pain level or No No management Left Footwear Regular Shoe Right Footwear Regular Shoe Pain Scale: 0-10 Numeric Is Patient Pain Free? Yes Yes WC - Nurse 1 - General Ulcer Measurement Start: 06/01/23 09:18 Freq: Status: Active Protocol: Activity Type Activity Date Activity User E-sign Co-sign Detail Recorded Client Recorded Date Recorded By Document 06/01/23 09:23 KW Desktop 06/01/23 09:26 KW Document 06/15/23 09:34 [facility] Desktop 06/15/23 09:39 [facility] 06/01/23 06/15/23 09:23 09:34 Wound Center Nurse 1 #5- R ischium -Combined with other wound No -Current Size (cm) - Length 4.8 5.5 -Current Size (cm) - Width 2.9 4.5 -Current Size (cm) - Depth 3.2 3.7 -Total Square Cm 13.92 24.75 -Photo Taken No -Epithelialization None Present -Tunneling No -Tunneling Position (O'clock) 12 -Tunneling Distance (cm) 7.5 -Undermining/Tunneling Yes -Undermining/Tunneling Starts (O'clock 12 ) -Undermining/Tunneling Ends (O'clock) 2 -Maximum Distance (cm) 3.1 -Circular Undermining No -Exudate Amt Medium Medium -Exudate Type Serosanguineous Serosanguineous -Wound Margin Distinct, Distinct, Outline Outline Attached Attached -Granulation Amt Large (67-100%) Large (67-100%) -Granulation Quality Red Red -Slough/Fibrin Yes -Necrosis Amt None Present (0 Small (1-33%) %) -Necrotic Tissue Type Adherent Slough -Structure Exposed N/A -Texture (Michelle-wound Skin Appearance) Scarring Assessed, Scarring -Moisture (Michelle-wound Skin Appearance) Maceration Assessed -Color (Michelle-wound Skin Appearance) No Abnormality Assessed -Temperature (Michelle-wound Skin No Abnormality No Abnormality Appearance) (Pt Warm) (Pt Warm) -Tenderness on Palpation (Michelle-wound No No Skin Appearance) -Ulcer Cleansing Soap and Water Soap and Water -Foul Odor after Cleansing No No -Anesthetic Used 5% Lidocaine 4% Lidocaine Gel Solution WC - Nurse 2 - General Ulcer CM Notes Start: 06/01/23 09:18 Freq: Status: Active Protocol: Activity Type Activity Date Activity User E-sign Co-sign Detail Recorded Client Recorded Date Recorded By Document 06/01/23 09:39 [employer] Laptop 06/01/23 09:43 Document 06/15/23 09:51 Laptop 06/15/23 09:54 06/01/23 06/15/23 09:39 09:51 Wound Center Nurse 2 #5- R ischium -Time 09:40 09:51 -Correct Patient Yes Yes -Correct Side, Site, Position Yes Yes -Correct Procedure Yes Yes -Procedure Performed Yes Yes -Type of Procedure Debridement Debridement -Clinical Debridement Muscle / Fascia Muscle / Fascia -Tissue Removed Muscle,Fascia Muscle,Fascia -Post Debridement (cm) - Length 5.5 5.7 -Post Debridement (cm) - Width 4.5 3.5 -Post Debridement (cm) - Depth 3.0 2.6 -Total Square (Post) (cm) 24.75 19.95 -Area of Debridement (cm) - Length 5.5 5.7 -Area of Debridement (cm) - Width 4.5 3.5 -Total Square (Area) (cm) 24.75 19.95 -Tunneling Yes Yes -Tunneling Position (O'clock) 12 12 -Tunneling Distance (cm) 6.9 7.7 -Undermining/Tunneling No No -Circular Undermining No No -Wound/Ulcer Outcome Not Healed Not Healed -Ulcer Cleansing Rinsed/ Rinsed/ Irrigated with Irrigated with Saline Saline -Foul Odor after Cleansing No No -Bioengineered Tissue No No -Bleeding Controlled with Pressure Pressure -Treatment Response Procedure Procedure Tolerated Well Tolerated Well -Offloading No No -Pressure Reduction Wheelchair Wheelchair cushion cushion -Debridement - Muscle / Fascia, 1st Yes Yes 20sq cm -Debridement, Muscle/Fascia, ea addt'l 1 20sq cm or part thereof Pain Scale: 0-10 Numeric Is Patient Pain Free? Yes Yes - Nurse 3 - General Ulcer D/C NN Start: 06/01/23 09:18 Freq: Status: Active Protocol: Activity Type Activity Date Activity User E-sign Co-sign Detail Recorded Client Recorded Date Recorded By Document 06/01/23 09:56 DL Desktop 06/01/23 09:59 DL Document 06/15/23 10:09 [facility] Desktop 06/15/23 10:10 [facility] 06/01/23 06/15/23 09:56 10:09 Wound Care Center Nurse 3 #5- R ischium -Ulcer Cleansing Rinsed/ Rinsed/ Irrigated with Irrigated with Saline Saline -Foul Odor after Cleansing No No -Primary Dressing Applied Silvercel Silvercel -Other Dressing abd -Primary Dressing Covered/Secured with Dry Gauze, Secured with Tape -Other Covering ABD fluffed gauze -Silvercel 1 1 Treatment Response Procedure Procedure Tolerated Well Tolerated Well Pain Scale: 0-10 Numeric Is Patient Pain Free? Yes Yes - Visit Discharge Discharge Condition Stable Stable Ambulatory Status Wheelchair Wheelchair Transportation [facility] Home Health Home Health Orders Sent Yes Assessment/Plan Assessment/Plan (1) Right ischial pressure sore, stage 4: CODE(S): L89.314 - Pressure ulcer of right buttock, stage 4 (2) Osteomyelitis of right side of pelvis: CODE(S): M86.9 - Osteomyelitis, unspecified (3) Smoker: CODE(S): F17.200 - Nicotine dependence, unspecified, uncomplicated (4) Wheelchair dependent: CODE(S): Z99.3 - Dependence on wheelchair PLAN: Plan Wound care - Silver alginate (preferably name brand such as Silvercel, so it does not fall apart when removing the dressing) into the tunnel and base of ulcer covered with fluffed gauze and toppe by ABD/super absorber 1-2 times per day and as needed. They have home health to help assist with his dressing changes. Operative tissue cultures positive for MSSA and Cutibacterium acnes. Bone cultures positive for MSSA and Corynebacterium striatum. He completed Augmentin. He was seen in the ED on 05/02/22 because of a couple falls he experienced since his surgery. CT of his pelvis showed some bony disruption at the level of the inferior pubic ramus suggests a mild osteomyelitis. Prealbumin 13.4 on 04/29/22. Anticipate increased metabolic demands from the infection. Encourage nutritional supplementation with protein to help the healing process. A wound culture was obtained on 07/14/22, which was positive for Staphylococcus aureus and was treated with Augmentin. Wound culture obtained 11/10/22 which was positive for MSSA and he completed the Augmentin. Wound culture obtained 04/06/23 which was positive for Staphylococcus aureus, Corynebacterium striatum, and Enterococcus faecalis. He is being treated with Augmentin, which he just refilled. Patient had a diverting colostomy on 11/21/22. The diversion of the stool has made a noticeable difference in the healing of the ulcer. Encouraged increased protein intake to help with wound healing. Patient states that he stopped smoking after his last wound care visit on 05/19/23! Stressed importance of not smoking how how it impacts wound healing and potential future surgeries, including flaps. I phoned his to discuss and she would prefer he stay in [place] if possibledue to transportation issues. Follow up 2-[address] Messina. From previous note from Dr. Messina: The ulcer is ready for further operative debridement in preparation for closure with a fasciocutaneous flap or a muscle flap since he is wheelchair dependent. The patient has expressed interest in pursuing further surgery with the goal of a closed wound. Patient is a smoker. Encouraged patient to stop smoking as it may have deleterious effects on wound healing. It will affect the healing of the flap andmay lead to incisional breakdown and recurrence of the pressure sore. He stateshe will try to stop smoking. Since this is an elective procedure, we are in no hurry to proceed. So will check a nicotine level prior to any surgery that is scheduled. Also would like to maximize his nutrition which would maximize the healing process. His last Prealbumin from 04/29/22 was 13.4. Ideally would like to see it above 20. At the time of the excision of the pressure sore, will check soft tissue and bone cultures. A positive culture will necessitate antibiotic therapy. This way we will know which antibiotics to use perioperatively. If the culture showsMRSA or Pseudomonas or MDR organisms, I would treat for 6 weeks before proceeding with wound closure. Postoperatively he will be on bedrest and would most likely benefit from a stay at an [facility] during this time. Patient was informed of the risks and complications of the procedure including alternatives to surgery. These were discussed with the patient personally. Patient voices understanding and wishes to proceed. Potential risks and complications included but not inclusive of bleeding, infection, seroma, hematoma, bruising, swelling, prolonged need for drains, lossof sensation to skin, partial or complete loss of skin flap and/or skin graft, wound breakdown, need for wound care, poor scarring, poor aesthetic outcome, intra operative cardiac or neurologic events, DVT, PE, and reaction to anesthesia. 06/15/23 170 <Electronically signed by Kemi Rubio NP, NP-C> Cosigner Signature (if applicable): CC: ~ Signed [facility] Work Phone: [phone] Telephone encounter Note* Telephone Encounter - Christine Chu - 06/14/2023 3:02 PM EDT Name of caller: Jorge Contact phone number: [phone] Relationship to Patient: patient Provider: Erasmo Practice: [facility] Chief Complaint/Reason for Call: Pt called to [...] business hours to return their call: N/A [facility] [id number] Miscellaneous Notes* Telephone Encounter - Christine Chu - 06/14/2023 3:02 PM EDT Name of caller: Jorge Contact phone number: [phone] Relationship to Patient: patient Provider: Erasmo Practice: [facility] Chief Complaint/Reason for Call: Pt called [...] return their call: N/A documented in this [facility]03-05-2024 Progress note Author Kemi Rubio [facility] June 02, 2023 1:03pm Note Date/Time June 01, 2023 10:2 1am [facility] [address] [place] [id number] Progress Note - Wound Care 06/01/23 1021 MR#: [id number] Acct: [id number] Name: JORGE COVINGTON Rep #:[id number] 2 : 1955 67 From: Kemi santiago LUBE MAN LUBE MAN-C PCP: Dr. Nathanael Cardona MD Status:RE G R Location: History of Present Illness Date of Service: 06/01/23 Chief Complaint: Right ischial pressure sore, Stage IV. History of Wound: This is a 67-year-old white male who presented to the wound healing center with complaints of pressure ulcer to right buttock area with extension to the right ischial bone. This started in October,. Patient's was treating with OTC creams and keeping area clean. The ulcer starting increasing in size and went to the Emergency Department on 02/08/22. CT showed subcutaneous and deep soft tissue involvement and possible early abscess formation. The bone was not addressed. He had a wound culture on 02/28/22. It was positive for E. coli, Staphylococcus aureus, and Clostridium perfringens. He was treated with Augmentin. The patient has very limited mobility as a result of a prior spine injury/surgery. He utilizes a wheelchair at all times. He has not been using his billy lift at home to transfer but has been using a board to slide himself from his bed to chair at home. He sits in his wheelchair almost all day, not really able to change positions. They finally obtained a low air loss overlay totheir regular mattress at home. A roho cushion was ordered for his wheelchair. Patient is a smoker. Surgery 04/28/22 - Excision right ischial pressure sore, Stage IV, with partial ostectomy for osteomyelitis. Size of wound 8 x 7 x 4.5 cm. Operative tissue cultures positive for MSSA and Cutibacterium acnes. Bone cultures positive for MSSA and Corynebacterium striatum. He is being treated with Augmentin. Pathology from surgery 04/28/22 showed chronic reparative and reactive change. No evidence of acute osteomyelitis. He had a diverting colostomy placed on 11/21/[address] Romero. Wound culture from 07/14/22 positive for Staphylococcus aureus and he was treatedwith Augmentin. Wound culture obtained 11/10/22 which was positive for Staphylococcus aureus and he was treated with Augmentin. Wound culture obtained 04/06/23 which was positive for Staphylococcus aureus, Corynebacterium striatum, and Enterococcus faecalis. He is being treated with Augmentin. Prealbumin 13.4 on 04/29/22. Encourage nutritional supplementation with protein to help the healing process. He was seen in the ED on 05/02/22 because of a couple falls he experienced since his surgery. CT of his pelvis showed some bony disruption at the level of the inferior pubic ramus suggests a mild osteomyelitis. Today he denies fever. His appetite is ok. Progress of Wound: Stable. Bone still palpable but covered with granulation tissue. It is still uncomfortable when palpating the bone. Wound bed is nice pink color. He continues to have maceration on the distal edges of the ulcer. He states they are changing the dressing twice a day. He states that he stopped smoking 2 weeks ago! Objective Data Objective Data Vital Signs: Vital Signs Temp Pulse Resp BP 96.7 F L 79 16 133/77 H 06/01/23 09:23 06/01/23 09:23 06/01/23 09:23 06/01/23 09:23 Weight: 220 lb Body Mass Index (BMI) 35.5 Charges/Coding Procedures Integumentary 111xxx-113xx: 80866 Lillian musc/fascia 20 sq cm/< (ICD-10 - L89.314, M86.9, F17.200, Z99.3) Add On Codes: 70377 Lillian musc/fascia add-on (ICD-10 - L89.314, M86.9, F17.200, Z99.3) Debridement Note Debridement Note Wound debrided: #5 Right ischial area. Laterality: Right Wound Grade/Stage: IV. Type of Debridement: Excisional debridement Anesthesia Used: 5% Lidocaine Gel Depth: Down to and including healthy tissue, in the subcutaneous layer, to muscle and to bone (bone is palpable but not exposed.) Percentage of wound debrided: 100 Instrument Used: 7mm curette Tissue Removed: subcutaneous tissue and muscle. Severity: Fat Layer Exposed (muscle is exposed. bone is palpable but not exposed. Bone was not debrided today.) Amount of bleeding with debridement: Mild Bleeding Controlled with: Pressure and Compression and gauze Patient tolerated procedure: Patient tolerated procedure well Debridement Free Text: Bone palpated but not debrided. He has a tunnel at 12 o'clock that is stable. The base of the ulcer is nice beefy pink color. He continues to have maceration around the edges of the ulcer, even with changing the dressing twice daily. Post-Debridement Measurements and Additional Note: Post-Debridement Measurements/Treatment - Nurse 1 - General Ulcer Assessment Start: 06/01/23 09:18 Freq: Status: Active Protocol: WC.LOWEXT Activity Type Activity Date Activity User E-sign Co-sign Detail Recorded Client Recorded Date Recorded By Document 06/01/23 09:23 KW Desktop 06/01/23 09:26 KW 06/01/23 09:23 - Today's Visit Information Type of service Follow-up Visit (Physician/HEAD BAKER ) Arrival Mode Wheelchair Transfer Assistance Billy Lift Patient Identification Verified (Name & Yes ) Patient Requires Transmission-Based No Precautions Height and Weight Body Mass Index (BMI) 35.5 BMI Classification Obese Vital Signs Temperature (97.8 F-99.1 F) 96.7 F L Temperature Source Temporal Pulse Rate (60-100) 79 Pulse Location Monitor Respiratory Rate (12-18) 16 Respiratory rate source Observation Blood Pressure (90/60-120/80) 133/77 H Blood Pressure Mean (mm Hg) 95 Source Monitor History Since Last Visit- (Skip if this is Patient's initial visit) Have you changed medications since your No last visit? Any new allergies or adverse reactions No Had a fall/change in ADL's that may No increase risk of falls Signs or symptoms of abuse and/or No neglect since last visit Have you been in the hospital since your No last visit? Has dressing in place as prescribed Yes Has compression in place as prescribed N/A Experienced any changes in pain level or No management Pain Scale: 0-10 Numeric Is Patient Pain Free? Yes WC - Nurse 1 - General Ulcer Measurement Start: 06/01/23 09:18 Freq: Status: Active Protocol: Activity Type Activity Date Activity User E-sign Co-sign Detail Recorded Client Recorded Date Recorded By Document 06/01/23 09:23 KW Desktop 06/01/23 09:26 KW 06/01/23 09:23 Wound Center Nurse 1 #5- R ischium -Current Size (cm) - Length 4.8 -Current Size (cm) - Width 2.9 -Current Size (cm) - Depth 3.2 -Total Square Cm 13.92 -Photo Taken No -Tunneling Position (O'clock) 12 -Tunneling Distance (cm) 7.5 -Exudate Amt Medium -Exudate Type Serosanguineous -Wound Margin Distinct, Outline Attached -Granulation Amt Large (67-100%) -Granulation Quality Red -Necrosis Amt None Present (0 %) -Structure Exposed N/A -Texture (Michelle-wound Skin Appearance) Scarring -Moisture (Michelle-wound Skin Appearance) Maceration -Color (Michelle-wound Skin Appearance) No Abnormality -Temperature (Michelle-wound Skin No Abnormality Appearance) (Pt Warm) -Tenderness on Palpation (Michelle-wound No Skin Appearance) -Ulcer Cleansing Soap and Water -Foul Odor after Cleansing No -Anesthetic Used 5% Lidocaine Gel DILCIA - Nurse 2 - General Ulcer CM Notes Start: 06/01/23 09:18 Freq: Status: Active Protocol: Activity Type Activity Date Activity User E-sign Co-sign Detail Recorded Client Recorded Date Recorded By Document 06/01/23 09:39 Laptop 06/01/23 09:43 JF 06/01/23 09:39 Wound Center Nurse 2 -Time 09:40 -Correct Patient Yes -Correct Side, Site, Position Yes -Correct Procedure Yes -Procedure Performed Yes -Type of Procedure Debridement -Clinical Debridement Muscle / Fascia -Tissue Removed Muscle,Fascia -Post Debridement (cm) - Length 5.5 -Post Debridement (cm) - Width 4.5 -Post Debridement (cm) - Depth 3.0 -Total Square (Post) (cm) 24.75 -Area of Debridement (cm) - Length 5.5 -Area of Debridement (cm) - Width 4.5 -Total Square (Area) (cm) 24.75 -Tunneling Yes -Tunneling Position (O'clock) 12 -Tunneling Distance (cm) 6.9 -Undermining/Tunneling No -Circular Undermining No -Wound/Ulcer Outcome Not Healed -Ulcer Cleansing Rinsed/ Irrigated with Saline -Foul Odor after Cleansing No -Bioengineered Tissue No -Bleeding Controlled with Pressure -Treatment Response Procedure Tolerated Well -Offloading No -Pressure Reduction Wheelchair cushion -Debridement - Muscle / Fascia, 1st Yes 20sq cm -Debridement, Muscle/Fascia, ea addt'l 1 20sq cm or part thereof Pain Scale: 0-10 Numeric Is Patient Pain Free? Yes - Nurse 3 - General Ulcer D/C NN Start: 06/01/23 09:18 Freq: Status: Active Protocol: Activity Type Activity Date Activity User E-sign Co-sign Detail Recorded Client Recorded Date Recorded By Document 06/01/23 09:56 DL Desktop 06/01/23 09:59 DL 06/01/23 09:56 Wound Care Center Nurse 3 #5- R ischium -Ulcer Cleansing Rinsed/ Irrigated with Saline -Foul Odor after Cleansing No -Primary Dressing Applied Silvercel -Other Covering ABD -Silvercel 1 Treatment Response Procedure Tolerated Well Pain Scale: 0-10 Numeric Is Patient Pain Free? Yes - Visit Discharge Discharge Condition Stable Ambulatory Status Wheelchair Facility Type Home Health Orders Sent Yes Assessment/Plan Assessment/Plan (1) Right ischial pressure sore, stage 4: CODE(S): L89.314 - Pressure ulcer of right buttock, stage 4 (2) Osteomyelitis of right side of pelvis: CODE(S): M86.9 - Osteomyelitis, unspecified (3) Smoker: CODE(S): F17.200 - Nicotine dependence, unspecified, uncomplicated (4) Wheelchair dependent: CODE(S): Z99.3 - Dependence on wheelchair PLAN: Plan Wound care - Stop the Dakins moistened gauze and start Silver alginate (preferably name brand such as Silvercel, so it does not fall apart when removing the dressing) into the tunnel and base of ulcer covered by ABD/super absorber 1-2 times per day and as needed. They have home health to help assist with his dressing changes. Operative tissue cultures positive for MSSA and Cutibacterium acnes. Bone cultures positive for MSSA and Corynebacterium striatum. He completed Augmentin. He was seen in the ED on 05/02/22 because of a couple falls he experienced since his surgery. CT of his pelvis showed some bony disruption at the level of the inferior pubic ramus suggests a mild osteomyelitis. Prealbumin 13.4 on 04/29/22. Anticipate increased metabolic demands from the infection. Encourage nutritional supplementation with protein to help the healing process. A wound culture was obtained on 07/14/22, which was positive for Staphylococcus aureus and was treated with Augmentin. Wound culture obtained 11/10/22 which was positive for MSSA and he completed the Augmentin. Wound culture obtained 04/06/23 which was positive for Staphylococcus aureus, Corynebacterium striatum, and Enterococcus faecalis. He is being treated with Augmentin, which he just refilled. Patient had a diverting colostomy on 11/21/22. The diversion of the stool has made a noticeable difference in the healing of the ulcer. Encouraged increased protein intake to help with wound healing. Patient states that he stopped smoking after his last wound care visit on 05/19/23! Stressed importance of not smoking how how it impacts wound healing and potential future surgeries, including flaps. I phoned his to discuss if she has any questions with the new dressing changes. I also wanted to know if she would like him to be referred to a tertiary center for a possible flap. She states she would prefer to keep him close to home because she prefers [place] over the larger medical centers. I discussed that we have a new plastic surgeon coming in October, who might be ableto do his flap. She states she is ok doing wound care until then, unless, Dr. Messina is able to take him to surgery for an operative debridement sooner. Follow up 2 weeks. From previous note from Dr. Messina: The ulcer is ready for further operative debridement in preparation for closure with a fasciocutaneous flap or a muscle flap since he is wheelchair dependent. The patient has expressed interest in pursuing further surgery with the goal of a closed wound. Patient is a smoker. Encouraged patient to stop smoking as it may have deleterious effects on wound healing. It will affect the healing of the flap andmay lead to incisional breakdown and recurrence of the pressure sore. He stateshe will try to stop smoking. Since this is an elective procedure, we are in no hurry to proceed. So will check a nicotine level prior to any surgery that is scheduled. Also would like to maximize his nutrition which would maximize the healing process. His last Prealbumin from 04/29/22 was 13.4. Ideally would like to see it above 20. At the time of the excision of the pressure sore, will check soft tissue and bone cultures. A positive culture will necessitate antibiotic therapy. This way we will know which antibiotics to use perioperatively. If the culture showsMRSA or Pseudomonas or MDR organisms, I would treat for 6 weeks before proceeding with wound closure. Postoperatively he will be on bedrest and would most likely benefit from a stay at an [facility] during this time. Patient was informed of the risks and complications of the procedure including alternatives to surgery. These were discussed with the patient personally. Patient voices understanding and wishes to proceed. Potential risks and complications included but not inclusive of bleeding, infection, seroma, hematoma, bruising, swelling, prolonged need for drains, lossof sensation to skin, partial or complete loss of skin flap and/or skin graft, wound breakdown, need for wound care, poor scarring, poor aesthetic outcome, intra operative cardiac or neurologic events, DVT, PE, and reaction to anesthesia. 06/02/23 1303 <Electronically signed by Kemi Rubio NP [employer]> Cosigner Signature (if applicable): CC: ~ Signed [facility] Work Phone: 1([phone]) 473-180402-20-2024 Progress note Author Kemi Rubio [facility] May 19, 2023 12:46pm Note Date/Time May 18, 2023 11:16am [facility] [address] [place] [address] Progress Note - Wound Care 05/18/23 1115 MR#: [id number] Acct: [id number] Name: JORGE COVINGTON Rep #:[id number] : 1955 67 From: Kemi santiago LUBE MAN [employer] PCP: Dr. Nathanael Cardona MD Status:RE G RCR Location: History of Present Illness Date of Service: 05/18/23 Chief Complaint: Right ischial pressure sore, Stage IV. History of Wound: This is a 67-year-old white male who presented to the wound healing center with complaints of pressure ulcer to right buttock area with extension to the right ischial bone. This started in October,. Patient's was treating with OTC creams and keeping area clean. The ulcer starting increasing in size and went to the Emergency Department on 02/08/22. CT showed subcutaneous and deep soft tissue involvement and possible early abscess formation. The bone was not addressed. He had a wound culture on 02/28/22. It was positive for E. coli, Staphylococcus aureus, and Clostridium perfringens. He was treated with Augmentin. The patient has very limited mobility as a result of a prior spine injury/surgery. He utilizes a wheelchair at all times. He has not been using his billy lift at home to transfer but has been using a board to slide himself from his bed to chair at home. He sits in his wheelchair almost all day, not really able to change positions. They finally obtained a low air loss overlay totheir regular mattress at home. A roho cushion was ordered for his wheelchair. Patient is a smoker. Surgery 04/28/22 - Excision right ischial pressure sore, Stage IV, with partial ostectomy for osteomyelitis. Size of wound 8 x 7 x 4.5 cm. Operative tissue cultures positive for MSSA and Cutibacterium acnes. Bone cultures positive for MSSA and Corynebacterium striatum. He is being treated with Augmentin. Pathology from surgery 04/28/22 showed chronic reparative and reactive change. No evidence of acute osteomyelitis. He had a diverting colostomy placed on 11/21/[address] Romero. Wound culture from 07/14/22 positive for Staphylococcus aureus and he was treatedwith Augmentin. Wound culture obtained 11/10/22 which was positive for Staphylococcus aureus and he was treated with Augmentin. Wound culture obtained 04/06/23 which was positive for Staphylococcus aureus, Corynebacterium striatum, and Enterococcus faecalis. He is being treated with Augmentin. Prealbumin 13.4 on 04/29/22. Encourage nutritional supplementation with protein to help the healing process. He was seen in the ED on 05/02/22 because of a couple falls he experienced since his surgery. CT of his pelvis showed some bony disruption at the level of the inferior pubic ramus suggests a mild osteomyelitis. Today he denies fever. His appetite is ok. Progress of Wound: Stable. Bone still palpable but covered with granulation tissue. It is still painful when palpated. Wound bed is nice pink color. He continues to have maceration on the distal edges of the ulcer. He states they are changing the dressing twice a day. Objective Data Objective Data Vital Signs: Vital Signs Temp Pulse Resp BP O2 Del Method 96.2 F L 91 16 147/96 H Room Air 05/18/23 09:04 05/18/23 09:04 05/18/23 09:04 05/18/23 09:04 05/18/23 09:04 Oxygen Delivery Method Room Air Weight: 220 lb Body Mass Index (BMI) 35.5 Charges/Coding Procedures Integumentary 111xxx-113xx: 62548 Lillian musc/fascia 20 sq cm/< (ICD-10 - L89.314, M86.9, F17.200, Z99.3) Add On Codes: 26324 Lillian musc/fascia add-on (ICD-10 - L89.314, M86.9, F17.200, Z99.3) Debridement Note Debridement Note Wound debrided: #5 Right ischial area. Laterality: Right Wound Grade/Stage: IV. Type of Debridement: Excisional debridement Anesthesia Used: 5% Lidocaine Gel Depth: Down to and including healthy tissue, in the subcutaneous layer, to muscle and to bone (bone is palpable but not exposed.) Percentage of wound debrided: 100 Instrument Used: 7mm curette Tissue Removed: subcutaneous tissue and muscle. Severity: Fat Layer Exposed (muscle is exposed. bone is palpable but not exposed. Bone was not debrided today.) Amount of bleeding with debridement: Mild Bleeding Controlled with: Pressure and Compression and gauze Patient tolerated procedure: Patient tolerated procedure well Debridement Free Text: Bone palpated but not debrided. He has a tunnel at 12 o'clock that is stable. The base of the ulcer is nice beefy pink color. Post-Debridement Measurements and Additional Note: Post-Debridement Measurements/Treatment WC - Nurse 1 - General Ulcer Assessment Start: 05/04/23 09:03 Freq: Status: Active Protocol: DILCIA.[employer] Activity Type Activity Date Activity User E-sign Co-sign Detail Recorded Client Recorded Date Recorded By Document 05/04/23 09:03 G[facility]uch[employer] Desktop 05/04/23 09:06 BM Document 05/18/23 09:04 [facility] Desktop 05/18/23 09:16 BMF 05/04/23 05/18/23 09:03 09:04 - Today's Visit Information Type of service Follow-up Visit Follow-up Visit (Physician/HEAD BAKER (Physician/HEAD BAKER ) ) Arrival Mode Wheelchair Wheelchair Transfer Assistance Billy Lift Transfer Assist (Other) 2 Patient Identification Verified (Name & Yes Yes ) Patient Requires Transmission-Based No No Precautions Height and Weight Body Mass Index (BMI) 35.5 35.5 BMI Classification Obese Obese Vital Signs Temperature (97.8 F-99.1 F) 96.6 F L 96.2 F L Temperature Source Temporal Temporal Pulse Rate (60-100) 79 91 Pulse Location Monitor Monitor Respiratory Rate (12-18) 16 16 Respiratory rate source Observation Observation Oxygen Delivery Method Room Air Room Air Blood Pressure (90/60-120/80) 184/92 H 147/96 H Blood Pressure Mean (mm Hg) 122 113 Source Monitor Monitor Position Sitting Sitting Blood Pressure Location Right Forearm Right Forearm History Since Last Visit- (Skip if this is Patient's initial visit) Have you changed medications since your No No last visit? Any new allergies or adverse reactions No No Had a fall/change in ADL's that may No No increase risk of falls Signs or symptoms of abuse and/or No No neglect since last visit Have you been in the hospital since your No No last visit? Has dressing in place as prescribed Yes Yes Has compression in place as prescribed N/A N/A Has offloadiing in place as prescribed N/A N/A Experienced any changes in pain level or No No management Left Footwear Regular Shoe Regular Shoe Right Footwear Regular Shoe Regular Shoe Pain Scale: 0-10 Numeric Is Patient Pain Free? Yes Yes WC - Nurse 1 - General Ulcer Measurement Start: 05/04/23 09:03 Freq: Status: Active Protocol: Activity Type Activity Date Activity User E-sign Co-sign Detail Recorded Client Recorded Date Recorded By Document 05/04/23 09:03 [facility] Desktop 05/04/23 09:06 BMF Document 05/18/23 09:04 G[employer]uch[employer] Desktop 05/18/23 09:16 BMF 05/04/23 05/18/23 09:03 09:04 Wound Center Nurse 1 #5- R ischium -Combined with other wound No No -Current Size (cm) - Length 4.6 5.8 -Current Size (cm) - Width 4 5.2 -Current Size (cm) - Depth 3.5 3 -Total Square Cm 18.4 30.16 -Date of Last Picture (Recall this 05/04/23 field) -Photo Taken Yes -Epithelialization None Present -Tunneling Yes -Tunneling Position (O'clock) 12 -Tunneling Distance (cm) 6 -Undermining/Tunneling Yes Yes -Undermining/Tunneling Starts (O'clock 12 12 ) -Undermining/Tunneling Ends (O'clock) 3 3 -Maximum Distance (cm) 6 7.2 -Circular Undermining No No -Exudate Amt Large Large -Exudate Type Serosanguineous Serosanguineous -Wound Margin Distinct, Thickened Outline Attached -Granulation Amt Large (67-100%) Large (67-100%) -Granulation Quality Red Red -Slough/Fibrin No Yes -Necrosis Amt None Present (0 Small (1-33%) %) -Necrotic Tissue Type Adherent Slough -Texture (Michelle-wound Skin Appearance) Assessed, Assessed, Scarring Scarring -Moisture (Michelle-wound Skin Appearance) Assessed, Assessed, Maceration Maceration -Color (Michelle-wound Skin Appearance) Assessed Assessed -Temperature (Michelle-wound Skin No Abnormality No Abnormality Appearance) (Pt Warm) (Pt Warm) -Tenderness on Palpation (Michelle-wound No No Skin Appearance) -Ulcer Cleansing Soap and Water Soap and Water -Foul Odor after Cleansing No No -Anesthetic Used 4% Lidocaine 4% Lidocaine Solution Solution DILCIA - Nurse 2 - General Ulcer CM Notes Start: 05/04/23 09:03 Freq: Status: Active Protocol: Activity Type Activity Date Activity User E-sign Co-sign Detail Recorded Client Recorded Date Recorded By Document 05/04/23 09:13 Laptop 05/04/23 09:19 Document 05/18/23 09:25 Laptop 05/18/23 09:27 05/04/23 05/18/23 09:13 09:25 Wound Center Nurse 2 #5- R ischium -Time 09:14 09:26 -Correct Patient Yes Yes -Correct Side, Site, Position Yes Yes -Correct Procedure Yes Yes -Procedure Performed Yes Yes -Type of Procedure Debridement Debridement -Clinical Debridement Muscle / Fascia Muscle / Fascia -Tissue Removed Muscle,Fascia Muscle,Fascia -Post Debridement (cm) - Length 4.7 5.2 -Post Debridement (cm) - Width 4.4 4.3 -Post Debridement (cm) - Depth 2.2 2.0 -Total Square (Post) (cm) 20.68 22.36 -Area of Debridement (cm) - Length 4.7 5.2 -Area of Debridement (cm) - Width 4.4 4.3 -Total Square (Area) (cm) 20.68 22.36 -Tunneling Yes No -Tunneling Position (O'clock) 12 -Tunneling Distance (cm) 6.8 -Undermining/Tunneling No No -Circular Undermining No No -Wound/Ulcer Outcome Not Healed Not Healed -Ulcer Cleansing Rinsed/ Rinsed/ Irrigated with Irrigated with Saline Saline -Foul Odor after Cleansing No No -Bioengineered Tissue No No -Bleeding Controlled with Pressure Pressure -Treatment Response Procedure Procedure Tolerated Well Tolerated Well -Offloading No No -Pressure Reduction Wheelchair Wheelchair cushion cushion -Debridement - Muscle / Fascia, 1st Yes Yes 20sq cm -Debridement, Muscle/Fascia, ea addt'l 1 1 20sq cm or part thereof Pain Scale: 0-10 Numeric Is Patient Pain Free? Yes Yes DILCIA - Nurse 3 - General Ulcer D/C NN Start: 05/04/23 09:03 Freq: Status: Active Protocol: Activity Type Activity Date Activity User E-sign Co-sign Detail Recorded Client Recorded Date Recorded By Document 05/18/23 09:35 DL Desktop 05/18/23 09:36 DL 05/18/23 09:35 Wound Care Center Nurse 3 #5- R ischium -Ulcer Cleansing Soap and Water -Foul Odor after Cleansing No -Other Dressing dakins -Primary Dressing Covered/Secured with Dry Gauze, Secured with Tape -Other Covering ABD Treatment Response Procedure Tolerated Well Pain Scale: 0-10 Numeric Is Patient Pain Free? Yes WC - Visit Discharge Discharge Condition Stable Ambulatory Status Wheelchair Transportation Private Auto Facility Type Home Health Orders Sent Yes Assessment/Plan Assessment/Plan (1) Right ischial pressure sore, stage 4: CODE(S): L89.314 - Pressure ulcer of right buttock, stage 4 (2) Osteomyelitis of right side of pelvis: CODE(S): M86.9 - Osteomyelitis, unspecified (3) Smoker: CODE(S): F17.200 - Nicotine dependence, unspecified, uncomplicated (4) Wheelchair dependent: CODE(S): Z99.3 - Dependence on wheelchair PLAN: Plan Wound care - Dakins 0.25% lightly moistened gauze covered by ABD/super absorber twice daily and as needed. Stressed not getting the dressings too wet because that may be the cause of the maceration on the distal edge of the ulcer. They have home health to help assist with his dressing changes. Operative tissue cultures positive for MSSA and Cutibacterium acnes. Bone cultures positive for MSSA and Corynebacterium striatum. He completed Augmentin. He was seen in the ED on 05/02/22 because of a couple falls he experienced since his surgery. CT of his pelvis showed some bony disruption at the level of the inferior pubic ramus suggests a mild osteomyelitis. Prealbumin 13.4 on 04/29/22. Anticipate increased metabolic demands from the infection. Encourage nutritional supplementation with protein to help the healing process. A wound culture was obtained on 07/14/22, which was positive for Staphylococcus aureus and was treated with Augmentin. Wound culture obtained 11/10/22 which was positive for MSSA and he completed the Augmentin. Wound culture obtained 04/06/23 which was positive for Staphylococcus aureus, Corynebacterium striatum, and Enterococcus faecalis. He is being treated with Augmentin, which he just refilled. Patient had a diverting colostomy on 11/21/22. The diversion of the stool has made a noticeable difference in the healing of the ulcer. Encouraged increased protein intake to help with wound healing. Encouraged patient to stop smoking as it may have deleterious effects on wound healing. Stressed importance of not smoking how how it impacts wound healing and potential future surgeries, including flaps, he really needs to stop smoking. He states he is down to 2 cigarettes a day. Follow up 2 weeks. From previous note from Dr. Messina: The ulcer is ready for further operative debridement in preparation for closure with a fasciocutaneous flap or a muscle flap since he is wheelchair dependent. The patient has expressed interest in pursuing further surgery with the goal of a closed wound. Patient is a smoker. Encouraged patient to stop smoking as it may have deleterious effects on wound healing. It will affect the healing of the flap andmay lead to incisional breakdown and recurrence of the pressure sore. He stateshe will try to stop smoking. Since this is an elective procedure, we are in no hurry to proceed. So will check a nicotine level prior to any surgery that is scheduled. Also would like to maximize his nutrition which would maximize the healing process. His last Prealbumin from 04/29/22 was 13.4. Ideally would like to see it above 20. At the time of the excision of the pressure sore, will check soft tissue and bone cultures. A positive culture will necessitate antibiotic therapy. This way we will know which antibiotics to use perioperatively. If the culture showsMRSA or Pseudomonas or MDR organisms, I would treat for 6 weeks before proceeding with wound closure. Postoperatively he will be on bedrest and would most likely benefit from a stay at an [facility] during this time. Patient was informed of the risks and complications of the procedure including alternatives to surgery. These were discussed with the patient personally. Patient voices understanding and wishes to proceed. Potential risks and complications included but not inclusive of bleeding, infection, seroma, hematoma, bruising, swelling, prolonged need for drains, lossof sensation to skin, partial or complete loss of skin flap and/or skin graft, wound breakdown, need for wound care, poor scarring, poor aesthetic outcome, intra operative cardiac or neurologic events, DVT, PE, and reaction to anesthesia. 05/19/23 2726 <Electronically signed by Kemi Rubio NP [employer]> Cosigner Signature (if applicable): CC: ~ Signed [facility] Work Phone: [phone]) [phone] Progress note Author Kemi Rubio [facility] May 05, 2023 9:37am Note Date/Time May 04, 2023 1 2:19pm [facility] [address] [place] [address] Progress Note - Wound Care 05/04/23 1219 MR#: [id number] Acct: [id number] Name: JORGE COVINGTON Rep #:[id number] : 1955 67 From: Kemi santiago LUBE MAN [employer]BE [employer] PCP: Dr. Nathanael Cardona MD Status:RE G RCR Location: History of Present Illness Date of Service: 05/04/23 Chief Complaint: Right ischial pressure sore, Stage IV. History of Wound: This is a 67-year-old white male who presented to the wound healing center with complaints of pressure ulcer to right buttock area with extension to the right ischial bone. This started in October,. Patient's was treating with OTC creams and keeping area clean. The ulcer starting increasing in size and went to the Emergency Department on 02/08/22. CT showed subcutaneous and deep soft tissue involvement and possible early abscess formation. The bone was not addressed. He had a wound culture on 02/28/22. It was positive for E. coli, Staphylococcus aureus, and Clostridium perfringens. He was treated with Augmentin. The patient has very limited mobility as a result of a prior spine injury/surgery. He utilizes a wheelchair at all times. He has not been using his billy lift at home to transfer but has been using a board to slide himself from his bed to chair at home. He sits in his wheelchair almost all day, not really able to change positions. They finally obtained a low air loss overlay totheir regular mattress at home. A roho cushion was ordered for his wheelchair. Patient is a smoker. Surgery 04/28/22 - Excision right ischial pressure sore, Stage IV, with partial ostectomy for osteomyelitis. Size of wound 8 x 7 x 4.5 cm. Operative tissue cultures positive for MSSA and Cutibacterium acnes. Bone cultures positive for MSSA and Corynebacterium striatum. He is being treated with Augmentin. Pathology from surgery 04/28/22 showed chronic reparative and reactive change. No evidence of acute osteomyelitis. He had a diverting colostomy placed on 11/21/[address] Romero. Wound culture from 07/14/22 positive for Staphylococcus aureus and he was treatedwith Augmentin. Wound culture obtained 11/10/22 which was positive for Staphylococcus aureus and he was treated with Augmentin. Wound culture obtained 04/06/23 which was positive for Staphylococcus aureus, Corynebacterium striatum, and Enterococcus faecalis. He is being treated with Augmentin. Prealbumin 13.4 on 04/29/22. Encourage nutritional supplementation with protein to help the healing process. He was seen in the ED on 05/02/22 because of a couple falls he experienced since his surgery. CT of his pelvis showed some bony disruption at the level of the inferior pubic ramus suggests a mild osteomyelitis. Today he denies fever. His appetite is ok. Progress of Wound: Stable. Bone still palpable but covered with granulation tissue. It is still painful when palpated. Wound bed is nice pink color. He has some maceration on the distal edges of the ulcer. Concern that he may be having increased drainage, or the dressing is too wet when being packed into the ulcer. Objective Data Objective Data Vital Signs: Vital Signs Temp Pulse Resp BP O2 Del Method 96.6 F L 79 16 184/92 H Room Air 05/04/23 09:03 05/04/23 09:03 05/04/23 09:03 05/04/23 09:03 05/04/23 09:03 Oxygen Delivery Method Room Air Weight: 220 lb Body Mass Index (BMI) 35.5 Charges/Coding Procedures Integumentary 111xxx-113xx: 50303 Lillian musc/fascia 20 sq cm/< (ICD-10 - L89.314, M86.9, F17.200, Z99.3) Add On Codes: 19105 Lillian musc/fascia add-on (ICD-10 - L89.314, M86.9, F17.200, Z99.3) Debridement Note Debridement Note Wound debrided: #5 Right ischial area. Laterality: Right Wound Grade/Stage: IV. Type of Debridement: Excisional debridement Anesthesia Used: 5% Lidocaine Gel Depth: Down to and including healthy tissue, in the subcutaneous layer, to muscle and to bone (bone is palpable but not exposed.) Percentage of wound debrided: 100 Instrument Used: 7mm curette Tissue Removed: subcutaneous tissue and muscle. Severity: Fat Layer Exposed (muscle is exposed. bone is palpable but not exposed. Bone was not debrided today.) Amount of bleeding with debridement: Mild Bleeding Controlled with: Pressure and Compression and gauze Patient tolerated procedure: Patient tolerated procedure well Debridement Free Text: Bone palpated but not debrided. He has a tunnel at 12 o'clock that is slightly smaller than last week. The base of the ulcer is nice beefy pink color. Post-Debridement Measurements and Additional Note: Post-Debridement Measurements/Treatment - Nurse 1 - General Ulcer Assessment Start: 05/04/23 09:03 Freq: Status: Active Protocol: .LOWEXT Activity Type Activity Date Activity User E-sign Co-sign Detail Recorded Client Recorded Date Recorded By Document 05/04/23 09:03 [facility] Desktop 05/04/23 09:06 [facility] 05/04/23 09:03 - Today's Visit Information Type of service Follow-up Visit (Physician/HEAD BAKER ) Arrival Mode Wheelchair Transfer Assistance Billy Lift Transfer Assist (Other) 2 Patient Identification Verified (Name & Yes ) Patient Requires Transmission-Based No Precautions Height and Weight Body Mass Index (BMI) 35.5 BMI Classification Obese Vital Signs Temperature (97.8 F-99.1 F) 96.6 F L Temperature Source Temporal Pulse Rate (60-100) 79 Pulse Location Monitor Respiratory Rate (12-18) 16 Respiratory rate source Observation Oxygen Delivery Method Room Air Blood Pressure (90/60-120/80) 184/92 H Blood Pressure Mean (mm Hg) 122 Source Monitor Position Sitting Blood Pressure Location Right Forearm History Since Last Visit- (Skip if this is Patient's initial visit) Have you changed medications since your No last visit? Any new allergies or adverse reactions No Had a fall/change in ADL's that may No increase risk of falls Signs or symptoms of abuse and/or No neglect since last visit Have you been in the hospital since your No last visit? Has dressing in place as prescribed Yes Has compression in place as prescribed N/A Has offloadiing in place as prescribed N/A Experienced any changes in pain level or No management Left Footwear Regular Shoe Right Footwear Regular Shoe Pain Scale: 0-10 Numeric Is Patient Pain Free? Yes - Nurse 1 - General Ulcer Measurement Start: 05/04/23 09:03 Freq: Status: Active Protocol: Activity Type Activity Date Activity User E-sign Co-sign Detail Recorded Client Recorded Date Recorded By Document 05/04/23 09:03 [facility] Desktop 05/04/23 09:06 [facility] 05/04/23 09:03 Wound Center Nurse 1 #5- R ischium -Combined with other wound No -Current Size (cm) - Length 4.6 -Current Size (cm) - Width 4 -Current Size (cm) - Depth 3.5 -Total Square Cm 18.4 -Date of Last Picture (Recall this 05/04/23 field) -Photo Taken Yes -Epithelialization None Present -Tunneling Yes -Tunneling Position (O'clock) 12 -Tunneling Distance (cm) 6 -Undermining/Tunneling Yes -Undermining/Tunneling Starts (O'clock 12 ) -Undermining/Tunneling Ends (O'clock) 3 -Maximum Distance (cm) 6 -Circular Undermining No -Exudate Amt Large -Exudate Type Serosanguineous -Wound Margin Distinct, Outline Attached -Granulation Amt Large (67-100%) -Granulation Quality Red -Slough/Fibrin No -Necrosis Amt None Present (0 %) -Texture (Michelle-wound Skin Appearance) Assessed, Scarring -Moisture (Michelle-wound Skin Appearance) Assessed, Maceration -Color (Michelle-wound Skin Appearance) Assessed -Temperature (Michelle-wound Skin No Abnormality Appearance) (Pt Warm) -Tenderness on Palpation (Michelle-wound No Skin Appearance) -Ulcer Cleansing Soap and Water -Foul Odor after Cleansing No -Anesthetic Used 4% Lidocaine Solution DILCIA - Nurse 2 - General Ulcer CM Notes Start: 05/04/23 09:03 Freq: Status: Active Protocol: Activity Type Activity Date Activity User E-sign Co-sign Detail Recorded Client Recorded Date Recorded By Document 05/04/23 09:13 Laptop 05/04/23 09:19 05/04/23 09:13 Wound Center Nurse 2 -Time 09:14 -Correct Patient Yes -Correct Side, Site, Position Yes -Correct Procedure Yes -Procedure Performed Yes -Type of Procedure Debridement -Clinical Debridement Muscle / Fascia -Tissue Removed Muscle,Fascia -Post Debridement (cm) - Length 4.7 -Post Debridement (cm) - Width 4.4 -Post Debridement (cm) - Depth 2.2 -Total Square (Post) (cm) 20.68 -Area of Debridement (cm) - Length 4.7 -Area of Debridement (cm) - Width 4.4 -Total Square (Area) (cm) 20.68 -Tunneling Yes -Tunneling Position (O'clock) 12 -Tunneling Distance (cm) 6.8 -Undermining/Tunneling No -Circular Undermining No -Wound/Ulcer Outcome Not Healed -Ulcer Cleansing Rinsed/ Irrigated with Saline -Foul Odor after Cleansing No -Bioengineered Tissue No -Bleeding Controlled with Pressure -Treatment Response Procedure Tolerated Well -Offloading No -Pressure Reduction Wheelchair cushion -Debridement - Muscle / Fascia, 1st Yes 20sq cm -Debridement, Muscle/Fascia, ea addt'l 1 20sq cm or part thereof Pain Scale: 0-10 Numeric Is Patient Pain Free? Yes Assessment/Plan Assessment/Plan (1) Right ischial pressure sore, stage 4: CODE(S): L89.314 - Pressure ulcer of right buttock, stage 4 (2) Osteomyelitis of right side of pelvis: CODE(S): M86.9 - Osteomyelitis, unspecified (3) Smoker: CODE(S): F17.200 - Nicotine dependence, unspecified, uncomplicated (4) Wheelchair dependent: CODE(S): Z99.3 - Dependence on wheelchair PLAN: Plan Wound care - Dakins 0.25% lightly moistened gauze covered by ABD/super absorber daily and as needed. May do the dressing changes twice daily if having increased drainage. Stressed not getting the dressings too wet because that may be the cause of the maceration on the distal edge of the ulcer. They have home health to help assist with his dressing changes. Operative tissue cultures positive for MSSA and Cutibacterium acnes. Bone cultures positive for MSSA and Corynebacterium striatum. He completed Augmentin. He was seen in the ED on 05/02/22 because of a couple falls he experienced since his surgery. CT of his pelvis showed some bony disruption at the level of the inferior pubic ramus suggests a mild osteomyelitis. Prealbumin 13.4 on 04/29/22. Anticipate increased metabolic demands from the infection. Encourage nutritional supplementation with protein to help the healing process. A wound culture was obtained on 07/14/22, which was positive for Staphylococcus aureus and was treated with Augmentin. Wound culture obtained 11/10/22 which was positive for MSSA and he completed the Augmentin. Wound culture obtained 04/06/23 which was positive for Staphylococcus aureus, Corynebacterium striatum, and Enterococcus faecalis. He is being treated with Augmentin. Patient had a diverting colostomy on 11/21/22. The diversion of the stool has made a noticeable difference in the healing of the ulcer. Encouraged increased protein intake to help with wound healing. Encouraged patient to stop smoking as it may have deleterious effects on wound healing. Stressed importance of not smoking how how it impacts wound healing and potential future surgeries, including flaps, he should really stop smoking. Follow up 2 weeks. From previous note from Dr. Messina: The ulcer is ready for further operative debridement in preparation for closure with a fasciocutaneous flap or a muscle flap since he is wheelchair dependent. The patient has expressed interest in pursuing further surgery with the goal of a closed wound. Patient is a smoker. Encouraged patient to stop smoking as it may have deleterious effects on wound healing. It will affect the healing of the flap andmay lead to incisional breakdown and recurrence of the pressure sore. He stateshe will try to stop smoking. Since this is an elective procedure, we are in no hurry to proceed. So will check a nicotine level prior to any surgery that is scheduled. Also would like to maximize his nutrition which would maximize the healing process. His last Prealbumin from 04/29/22 was 13.4. Ideally would like to see it above 20. At the time of the excision of the pressure sore, will check soft tissue and bone cultures. A positive culture will necessitate antibiotic therapy. This way we will know which antibiotics to use perioperatively. If the culture showsMRSA or Pseudomonas or MDR organisms, I would treat for 6 weeks before proceeding with wound closure. Postoperatively he will be on bedrest and would most likely benefit from a stay at an EC during this time. Patient was informed of the risks and complications of the procedure including alternatives to surgery. These were discussed with the patient personally. Patient voices understanding and wishes to proceed. Potential risks and complications included but not inclusive of bleeding, infection, seroma, hematoma, bruising, swelling, prolonged need for drains, lossof sensation to skin, partial or complete loss of skin flap and/or skin graft, wound breakdown, need for wound care, poor scarring, poor aesthetic outcome, intra operative cardiac or neurologic events, DVT, PE, and reaction to anesthesia. 05/05/23 0937 <Electronically signed by Kemi Rubio NP [facility]> Cosigner Signature (if applicable): CC: ~ Signed [facility] Work Phone: [phone] Progress note Author Kemi [facility] April 23, 2023 5:04pm Note Date/Time April 21, 2023 4 :48pm [facility] [address] [place] [address] Progress Note - Wound Care 04/21/23 1648 MR#: [id number] Acct: [id number] Name: JORGE COVINGTON Rep #:[id number] 2 : 1955 67 From: Kemi santiago NP [facility] PCP: Dr. Nathanael Cardona MD Status:RE G RCR Location: History of Present Illness Date of Service: 04/21/23 Chief Complaint: Right ischial pressure sore, Stage IV. History of Wound: This is a 67-year-old white male who presented to the wound healing center with complaints of pressure ulcer to right buttock area with extension to the right ischial bone. This started in October,. Patient's was treating with OTC creams and keeping area clean. The ulcer starting increasing in size and went to the Emergency Department on 02/08/22. CT showed subcutaneous and deep soft tissue involvement and possible early abscess formation. The bone was not addressed. He had a wound culture on 02/28/22. It was positive for E. coli, Staphylococcus aureus, and Clostridium perfringens. He was treated with Augmentin. The patient has very limited mobility as a result of a prior spine injury/surgery. He utilizes a wheelchair at all times. He has not been using his billy lift at home to transfer but has been using a board to slide himself from his bed to chair at home. He sits in his wheelchair almost all day, not really able to change positions. They finally obtained a low air loss overlay totheir regular mattress at home. A roho cushion was ordered for his wheelchair. Patient is a smoker. Surgery 04/28/22 - Excision right ischial pressure sore, Stage IV, with partial ostectomy for osteomyelitis. Size of wound 8 x 7 x 4.5 cm. Operative tissue cultures positive for MSSA and Cutibacterium acnes. Bone cultures positive for MSSA and Corynebacterium striatum. He is being treated with Augmentin. Pathology from surgery 04/28/22 showed chronic reparative and reactive change. No evidence of acute osteomyelitis. He had a diverting colostomy placed on 11/21/[address] Romero. Wound culture from 07/14/22 positive for Staphylococcus aureus and he was treatedwith Augmentin. Wound culture obtained 11/10/22 which was positive for Staphylococcus aureus and he was treated with Augmentin. Wound culture obtained 04/06/23 which was positive for Staphylococcus aureus, Corynebacterium striatum, and Enterococcus faecalis. He is being treated with Augmentin. Prealbumin 13.4 on 04/29/22. Encourage nutritional supplementation with protein to help the healing process. He was seen in the ED on 05/02/22 because of a couple falls he experienced since his surgery. CT of his pelvis showed some bony disruption at the level of the inferior pubic ramus suggests a mild osteomyelitis. Today he denies fever. His appetite is ok. Progress of Wound: Stable. Bone still palpable but covered with granulation tissue. It is still painful when palpated. Wound bed is nice pink color. Objective Data Objective Data Vital Signs: Vital Signs Temp Pulse Resp BP O2 Del Method 97.6 F L 87 18 163/92 H Room Air 04/21/23 13:42 04/21/23 13:42 04/21/23 13:42 04/21/23 13:42 04/21/23 13:42 Oxygen Delivery Method Room Air Weight: 220 lb Body Mass Index (BMI) 35.5 Lab / Micro Data Micro: Microbiology 04/06/23 10:10 Wound - Ischium Gram Stain - Final 04/06/23 10:10 Wound - Ischium Wound Culture - Final Staphylococcus aureus Corynebacterium striatum Enterococcus faecalis 04/06/23 10:10 Wound - Ischium Anaerobic Culture - Final No anaerobic bacteria isolated. Charges/Coding Procedures Integumentary 111xxx-113xx: 87508 Lillian musc/fascia 20 sq cm/< (ICD-10 - L89.314, M86.9, F17.200, Z99.3) Add On Codes: 16798 Lillian musc/fascia add-on (ICD-10 - L89.314, M86.9, F17.200, Z99.3) Debridement Note Debridement Note Wound debrided: #5 Right ischial area. Laterality: Right Wound Grade/Stage: IV. Type of Debridement: Excisional debridement Anesthesia Used: 5% Lidocaine Gel Depth: Down to and including healthy tissue, in the subcutaneous layer, to muscle and to bone (bone is palpable but not exposed.) Percentage of wound debrided: 100 Instrument Used: 7mm curette Tissue Removed: subcutaneous tissue and muscle. Severity: Fat Layer Exposed (muscle is exposed. bone is palpable but not exposed. Bone was not debrided today.) Amount of bleeding with debridement: Mild Bleeding Controlled with: Pressure and Compression and gauze Patient tolerated procedure: Patient tolerated procedure well Debridement Free Text: Bone palpated but not debrided. He has a tunnel at 12 o'clock that is approximately 7 cm long. The base of the ulcer is nice beefy pink color. Post-Debridement Measurements and Additional Note: Post-Debridement Measurements/Treatment - Nurse 1 - General Ulcer Assessment Start: 04/06/23 09:18 Freq: Status: Active Protocol: KIRA Activity Type Activity Date Activity User E-sign Co-sign Detail Recorded Client Recorded Date Recorded By Document 04/06/23 09:18 DL Desktop 04/06/23 09:30 DL Document 04/21/23 13:42 KW [id number] 04/21/23 13:45 KW 04/06/23 04/21/23 09:18 13:42 - Today's Visit Information Type of service Follow-up Visit Follow-up Visit (Physician/HEAD BAKER (Physician/HEAD BAKER ) ) Arrival Mode Wheelchair Wheelchair Transfer Assistance Billy Lift Patient Identification Verified (Name & Yes Yes ) Patient Requires Transmission-Based No Precautions Height and Weight Body Mass Index (BMI) 35.5 35.5 BMI Classification Obese Obese Vital Signs Temperature (97.8 F-99.1 F) 96.8 F L 97.6 F L Temperature Source Temporal Temporal Pulse Rate (60-100) 84 87 Pulse Location Monitor Monitor Respiratory Rate (12-18) 20 H 18 Respiratory rate source Observation Observation Oxygen Delivery Method Room Air Blood Pressure (90/60-120/80) 118/77 163/92 H Blood Pressure Mean (mm Hg) 90 115 Source Monitor Monitor Position Sitting Blood Pressure Location Left Forearm History Since Last Visit- (Skip if this is Patient's initial visit) Have you changed medications since your No No last visit? Any new allergies or adverse reactions No No Had a fall/change in ADL's that may No No increase risk of falls Signs or symptoms of abuse and/or No No neglect since last visit Have you been in the hospital since your No No last visit? Has dressing in place as prescribed Yes Yes Has compression in place as prescribed N/A N/A Has offloadiing in place as prescribed Yes N/A Experienced any changes in pain level or No No management Left Footwear Regular Shoe Right Footwear Regular Shoe Pain Scale: 0-10 Numeric Is Patient Pain Free? Yes Yes WC - Nurse 1 - General Ulcer Measurement Start: 04/06/23 09:18 Freq: Status: Active Protocol: Activity Type Activity Date Activity User E-sign Co-sign Detail Recorded Client Recorded Date Recorded By Document 04/06/23 09:18 DL Desktop 04/06/23 09:30 DL Document 04/21/23 13:42 KW [id number] 04/21/23 13:45 KW 04/06/23 04/21/23 09:18 13:42 Wound Center Nurse 1 #5- R ischium -Combined with other wound No -Current Size (cm) - Length 5 4 -Current Size (cm) - Width 4.8 3.5 -Current Size (cm) - Depth 2.6 4.2 -Total Square Cm 24.0 14.0 -Date of Last Picture (Recall this 04/06/23 04/21/23 field) -Photo Taken Yes Yes -Epithelialization None Present -Tunneling Yes -Tunneling Position (O'clock) 1 -Tunneling Distance (cm) 7.8 -Undermining/Tunneling No -Circular Undermining No -Exudate Amt Large Medium -Exudate Type Serosanguineous Serosanguineous -Wound Margin Distinct, Thickened Outline Attached -Granulation Amt Large (67-100%) Large (67-100%) -Granulation Quality Red Red -Slough/Fibrin No -Necrosis Amt None Present (0 %) -Texture (Michelle-wound Skin Appearance) Assessed, Assessed Scarring -Moisture (Michelle-wound Skin Appearance) Assessed Assessed, Maceration -Color (Michelle-wound Skin Appearance) Assessed Assessed -Temperature (Michelle-wound Skin No Abnormality No Abnormality Appearance) (Pt Warm) (Pt Warm) -Tenderness on Palpation (Michelle-wound No Skin Appearance) -Ulcer Cleansing Soap and Water Soap and Water -Foul Odor after Cleansing No No -Anesthetic Used 4% Lidocaine 4% Lidocaine Solution Solution WC - Nurse 2 - General Ulcer CM Notes Start: 04/06/23 09:18 Freq: Status: Active Protocol: Activity Type Activity Date Activity User E-sign Co-sign Detail Recorded Client Recorded Date Recorded By Document 04/06/23 10:08 Laptop 04/06/23 10:13 Document 04/21/23 13:48 Laptop 04/21/23 13:52 04/06/23 04/21/23 10:08 13:48 Wound Center Nurse 2 #5- R ischium -Time 10:08 13:49 -Correct Patient Yes Yes -Correct Side, Site, Position Yes Yes -Correct Procedure Yes Yes -Procedure Performed Yes Yes -Type of Procedure Debridement Debridement -Clinical Debridement Muscle / Fascia Muscle / Fascia -Tissue Removed Muscle,Fascia Muscle,Fascia -Post Debridement (cm) - Length 5.0 4.5 -Post Debridement (cm) - Width 5.5 4.5 -Post Debridement (cm) - Depth 2.0 1.4 -Total Square (Post) (cm) 27.50 20.25 -Area of Debridement (cm) - Length 5.0 4.5 -Area of Debridement (cm) - Width 5.5 4.5 -Total Square (Area) (cm) 27.50 20.25 -Tunneling Yes Yes -Tunneling Position (O'clock) 12 12 -Tunneling Distance (cm) 5.8 7.2 -Undermining/Tunneling No No -Circular Undermining No No -Wound/Ulcer Outcome Not Healed Not Healed -Ulcer Cleansing Rinsed/ Rinsed/ Irrigated with Irrigated with Saline Saline -Foul Odor after Cleansing No No -Bioengineered Tissue No No -Bleeding Controlled with Pressure Pressure -Treatment Response Procedure Procedure Tolerated Well Tolerated Well -Offloading No No -Pressure Reduction Wheelchair cushion -Debridement - Muscle / Fascia, 1st Yes Yes 20sq cm -Debridement, Muscle/Fascia, ea addt'l 1 1 20sq cm or part thereof Pain Scale: 0-10 Numeric Is Patient Pain Free? Yes Yes - Nurse 3 - General Ulcer D/C NN Start: 04/06/23 09:18 Freq: Status: Active Protocol: Activity Type Activity Date Activity User E-sign Co-sign Detail Recorded Client Recorded Date Recorded By Document 04/06/23 10:17 DL Desktop 04/06/23 10:18 DL Document 04/21/23 13:53 Laptop 04/21/23 13:53 04/06/23 04/21/23 10:17 13:53 Wound Care Center Nurse 3 #5- R ischium -Ulcer Cleansing Rinsed/ Rinsed/ Irrigated with Irrigated with Saline Saline -Foul Odor after Cleansing No No -Other Dressing dakins Dakin's -Primary Dressing Covered/Secured with Dry Gauze & Dry Gauze, Roll Gauze, Secured with Secured with Tape Tape -Other Covering ABD Treatment Response Procedure Tolerated Well Pain Scale: 0-10 Numeric Is Patient Pain Free? Yes Yes - Visit Discharge Discharge Condition Stable Stable Ambulatory Status Wheelchair Wheelchair Transportation Private Auto Medication Reconcilliation completed & Yes provided to patient/care provider Clinical Summary of Care Provided Yes Facility Type Home Health Orders Sent Yes Assessment/Plan Assessment/Plan (1) Right ischial pressure sore, stage 4: CODE(S): L89.314 - Pressure ulcer of right buttock, stage 4 (2) Osteomyelitis of right side of pelvis: CODE(S): M86.9 - Osteomyelitis, unspecified (3) Smoker: CODE(S): F17.200 - Nicotine dependence, unspecified, uncomplicated (4) Wheelchair dependent: CODE(S): Z99.3 - Dependence on wheelchair PLAN: Plan Wound care - Dakins 0.25% moistened gauze covered by ABD/super absorber daily and as needed. They have home health to help assist with his dressing changes. Operative tissue cultures positive for MSSA and Cutibacterium acnes. Bone cultures positive for MSSA and Corynebacterium striatum. He completed Augmentin. He was seen in the ED on 05/02/22 because of a couple falls he experienced since his surgery. CT of his pelvis showed some bony disruption at the level of the inferior pubic ramus suggests a mild osteomyelitis. Prealbumin 13.4 on 04/29/22. Anticipate increased metabolic demands from the infection. Encourage nutritional supplementation with protein to help the healing process. A wound culture was obtained on 07/14/22, which was positive for Staphylococcus aureus and was treated with Augmentin. Wound culture obtained 11/10/22 which was positive for MSSA and he completed the Augmentin. Wound culture obtained 04/06/23 which was positive for Staphylococcus aureus, Corynebacterium striatum, and Enterococcus faecalis. He is being treated with Augmentin. Patient had a diverting colostomy on 11/21/22. The diversion of the stool has made a noticeable difference in the healing of the ulcer. Encouraged increased protein intake to help with wound healing. Encouraged patient to stop smoking as it may have deleterious effects on wound healing. Stressed importance of not smoking how how it impacts wound healing and potential future surgeries, including flaps, he should really stop smoking. Follow up 2 weeks. From previous note from Dr. Messina: The ulcer is ready for further operative debridement in preparation for closure with a fasciocutaneous flap or a muscle flap since he is wheelchair dependent. The patient has expressed interest in pursuing further surgery with the goal of a closed wound. Patient is a smoker. Encouraged patient to stop smoking as it may have deleterious effects on wound healing. It will affect the healing of the flap andmay lead to incisional breakdown and recurrence of the pressure sore. He stateshe will try to stop smoking. Since this is an elective procedure, we are in no hurry to proceed. So will check a nicotine level prior to any surgery that is scheduled. Also would like to maximize his nutrition which would maximize the healing process. His last Prealbumin from 04/29/22 was 13.4. Ideally would like to see it above 20. At the time of the excision of the pressure sore, will check soft tissue and bone cultures. A positive culture will necessitate antibiotic therapy. This way we will know which antibiotics to use perioperatively. If the culture showsMRSA or Pseudomonas or MDR organisms, I would treat for 6 weeks before proceeding with wound closure. Postoperatively he will be on bedrest and would most likely benefit from a stay at an EC during this time. Patient was informed of the risks and complications of the procedure including alternatives to surgery. These were discussed with the patient personally. Patient voices understanding and wishes to proceed. Potential risks and complications included but not inclusive of bleeding, infection, seroma, hematoma, bruising, swelling, prolonged need for drains, lossof sensation to skin, partial or complete loss of skin flap and/or skin graft, wound breakdown, need for wound care, poor scarring, poor aesthetic outcome, intra operative cardiac or neurologic events, DVT, PE, and reaction to anesthesia. 04/23/23 1704 <Electronically signed by Kemi Rubio NP [facility]> Cosigner Signature (if applicable): CC: ~ Signed [facility] Work Phone: 1(432) 871-424901-09-2024 Progress note Author Kemi [facility] April 07, 2023 2:22pm Note Date/Time April 06, 2023 11 :59am [facility] [address] [place] [id number] Progress Note - Wound Care 04/06/23 1159 MR#: [id number] Acct: [id number] Name: JORGE COVINGTON Rep #:[id number] : 1955 67 From: Kemi santiago NP [facility] [employer] PCP: Dr. Nathanael Cardona MD Status:[facility] Location: History of Present Illness Date of Service: 04/06/23 Chief Complaint: Right ischial pressure sore, Stage IV. History of Wound: This is a 67-year-old white male who presented to the wound healing center with complaints of pressure ulcer to right buttock area with extension to the right ischial bone. This started in October,. Patient's was treating with OTC creams and keeping area clean. The ulcer starting increasing in size and went to the Emergency Department on 02/08/22. CT showed subcutaneous and deep soft tissue involvement and possible early abscess formation. The bone was not addressed. He had a wound culture on 02/28/22. It was positive for E. coli, Staphylococcus aureus, and Clostridium perfringens. He was treated with Augmentin. The patient has very limited mobility as a result of a prior spine injury/surgery. He utilizes a wheelchair at all times. He has not been using his billy lift at home to transfer but has been using a board to slide himself from his bed to chair at home. He sits in his wheelchair almost all day, not really able to change positions. They finally obtained a low air loss overlay totheir regular mattress at home. A roho cushion was ordered for his wheelchair. Patient is a smoker. Surgery 04/28/22 - Excision right ischial pressure sore, Stage IV, with partial ostectomy for osteomyelitis. Size of wound 8 x 7 x 4.5 cm. Operative tissue cultures positive for MSSA and Cutibacterium acnes. Bone cultures positive for MSSA and Corynebacterium striatum. He is being treated with Augmentin. Pathology from surgery 04/28/22 showed chronic reparative and reactive change. No evidence of acute osteomyelitis. He had a diverting colostomy placed on 11/21/[address] Romero. Wound culture from 07/14/22 positive for Staphylococcus aureus and he was treatedwith Augmentin. Wound culture obtained 11/10/22 which was positive for Staphylococcus aureus and he was treated with Augmentin. Prealbumin 13.4 on 04/29/22. Encourage nutritional supplementation with protein to help the healing process. He was seen in the ED on 05/02/22 because of a couple falls he experienced since his surgery. CT of his pelvis showed some bony disruption at the level of the inferior pubic ramus suggests a mild osteomyelitis. Today he denies fever. His appetite is ok. Progress of Wound: Stable. Bone still palpable but covered with granulation tissue. It is very painful when palpated. A wound culture was obtained today.? A positive culture will necessitate antibiotic therapy. Objective Data Objective Data Vital Signs: Vital Signs Temp Pulse Resp BP 96.8 F L 84 20 H 118/77 04/06/23 09:18 04/06/23 09:18 04/06/23 09:18 04/06/23 09:18 Weight: 220 lb Body Mass Index (BMI) 35.5 Charges/Coding Procedures Integumentary 111xxx-113xx: 66192 Lillian musc/fascia 20 sq cm/< (ICD-10 - L89.314, M86.9, F17.200, Z99.3) Add On Codes: 43296 Lillian musc/fascia add-on (ICD-10 - L89.314, M86.9, F17.200, Z99.3) Debridement Note Debridement Note Wound debrided: #5 Right ischial area. Laterality: Right Wound Grade/Stage: IV. Type of Debridement: Excisional debridement Anesthesia Used: 5% Lidocaine Gel Depth: Down to and including healthy tissue, in the subcutaneous layer, to muscle and to bone (bone is palpable but not exposed.) Percentage of wound debrided: 100 Instrument Used: 7mm curette Tissue Removed: subcutaneous tissue and muscle. Severity: Fat Layer Exposed (muscle is exposed. bone is palpable but not exposed. Bone was not debrided today.) Amount of bleeding with debridement: Mild Bleeding Controlled with: Pressure and Compression and gauze Patient tolerated procedure: Patient tolerated procedure well Debridement Free Text: Bone palpated but not debrided. Post-Debridement Measurements and Additional Note: Post-Debridement Measurements/Treatment - Nurse 1 - General Ulcer Assessment Start: 04/06/23 09:18 Freq: Status: Active Protocol: DILCIA.[email or web address] Activity Type Activity Date Activity User E-sign Co-sign Detail Recorded Client Recorded Date Recorded By Document 04/06/23 09:18 Desktop 04/06/23 09:30 DL 04/06/23 09:18 - Today's Visit Information Type of service Follow-up Visit (Physician/HEAD BAKER ) Arrival Mode Wheelchair Transfer Assistance Billy Lift Patient Identification Verified (Name & Yes ) Patient Requires Transmission-Based No Precautions Height and Weight Body Mass Index (BMI) 35.5 BMI Classification Obese Vital Signs Temperature (97.8 F-99.1 F) 96.8 F L Temperature Source Temporal Pulse Rate (60-100) 84 Pulse Location Monitor Respiratory Rate (12-18) 20 H Respiratory rate source Observation Blood Pressure (90/60-120/80) 118/77 Blood Pressure Mean (mm Hg) 90 Source Monitor History Since Last Visit- (Skip if this is Patient's initial visit) Have you changed medications since your No last visit? Any new allergies or adverse reactions No Had a fall/change in ADL's that may No increase risk of falls Signs or symptoms of abuse and/or No neglect since last visit Have you been in the hospital since your No last visit? Has dressing in place as prescribed Yes Has compression in place as prescribed N/A Has offloadiing in place as prescribed Yes Experienced any changes in pain level or No management Pain Scale: 0-10 Numeric Is Patient Pain Free? Yes DILCIA - Nurse 1 - General Ulcer Measurement Start: 04/06/23 09:18 Freq: Status: Active Protocol: Activity Type Activity Date Activity User E-sign Co-sign Detail Recorded Client Recorded Date Recorded By Document 04/06/23 09:18 DL Desktop 04/06/23 09:30 DL 04/06/23 09:18 Wound Center Nurse 1 #5- R ischium -Combined with other wound No -Current Size (cm) - Length 5 -Current Size (cm) - Width 4.8 -Current Size (cm) - Depth 2.6 -Total Square Cm 24.0 -Date of Last Picture (Recall this 04/06/23 field) -Photo Taken Yes -Epithelialization None Present -Tunneling Yes -Tunneling Position (O'clock) 1 -Tunneling Distance (cm) 7.8 -Undermining/Tunneling No -Circular Undermining No -Exudate Amt Large -Exudate Type Serosanguineous -Wound Margin Distinct, Outline Attached -Granulation Amt Large (67-100%) -Granulation Quality Red -Slough/Fibrin No -Necrosis Amt None Present (0 %) -Texture (Michelle-wound Skin Appearance) Assessed, Scarring -Moisture (Michelle-wound Skin Appearance) Assessed -Color (Michelle-wound Skin Appearance) Assessed -Temperature (Michelle-wound Skin No Abnormality Appearance) (Pt Warm) -Tenderness on Palpation (Michelle-wound No Skin Appearance) -Ulcer Cleansing Soap and Water -Foul Odor after Cleansing No -Anesthetic Used 4% Lidocaine Solution WC - Nurse 2 - General Ulcer CM Notes Start: 04/06/23 09:18 Freq: Status: Active Protocol: Activity Type Activity Date Activity User E-sign Co-sign Detail Recorded Client Recorded Date Recorded By Document 04/06/23 10:08 JF Laptop 04/06/23 10:13 JF 04/06/23 10:08 Wound Center Nurse 2 -Time 10:08 -Correct Patient Yes -Correct Side, Site, Position Yes -Correct Procedure Yes -Procedure Performed Yes -Type of Procedure Debridement -Clinical Debridement Muscle / Fascia -Tissue Removed Muscle,Fascia -Post Debridement (cm) - Length 5.0 -Post Debridement (cm) - Width 5.5 -Post Debridement (cm) - Depth 2.0 -Total Square (Post) (cm) 27.50 -Area of Debridement (cm) - Length 5.0 -Area of Debridement (cm) - Width 5.5 -Total Square (Area) (cm) 27.50 -Tunneling Yes -Tunneling Position (O'clock) 12 -Tunneling Distance (cm) 5.8 -Undermining/Tunneling No -Circular Undermining No -Wound/Ulcer Outcome Not Healed -Ulcer Cleansing Rinsed/ Irrigated with Saline -Foul Odor after Cleansing No -Bioengineered Tissue No -Bleeding Controlled with Pressure -Treatment Response Procedure Tolerated Well -Offloading No -Debridement - Muscle / Fascia, 1st Yes 20sq cm -Debridement, Muscle/Fascia, ea addt'l 1 20sq cm or part thereof Pain Scale: 0-10 Numeric Is Patient Pain Free? Yes - Nurse 3 - General Ulcer D/C NN Start: 04/06/23 09:18 Freq: Status: Active Protocol: Activity Type Activity Date Activity User E-sign Co-sign Detail Recorded Client Recorded Date Recorded By Document 04/06/23 10:17 DL Desktop 04/06/23 10:18 DL 04/06/23 10:17 Wound Care Center Nurse 3 #5- R ischium -Ulcer Cleansing Rinsed/ Irrigated with Saline -Foul Odor after Cleansing No -Other Dressing dakins -Primary Dressing Covered/Secured with Dry Gauze & Roll Gauze, Secured with Tape -Other Covering ABD Treatment Response Procedure Tolerated Well Pain Scale: 0-10 Numeric Is Patient Pain Free? Yes - Visit Discharge Discharge Condition Stable Ambulatory Status Wheelchair Facility Type Home Health Orders Sent Yes Assessment/Plan Assessment/Plan (1) Right ischial pressure sore, stage 4: CODE(S): L89.314 - Pressure ulcer of right buttock, stage 4 (2) Osteomyelitis of right side of pelvis: CODE(S): M86.9 - Osteomyelitis, unspecified (3) Smoker: CODE(S): F17.200 - Nicotine dependence, unspecified, uncomplicated (4) Wheelchair dependent: CODE(S): Z99.3 - Dependence on wheelchair PLAN: Plan Wound care - Dakins 0.25% moistened gauze covered by ABD/super absorber daily and as needed. They have home health to help assist with his dressing changes. A wound culture was obtained today, 04/06/23.? A positive culture will necessitateantibiotic therapy. Operative tissue cultures positive for MSSA and Cutibacterium acnes. Bone cultures positive for MSSA and Corynebacterium striatum. He completed Augmentin. He was seen in the ED on 05/02/22 because of a couple falls he experienced since his surgery. CT of his pelvis showed some bony disruption at the level of the inferior pubic ramus suggests a mild osteomyelitis. Prealbumin 13.4 on 04/29/22. Anticipate increased metabolic demands from the infection. Encourage nutritional supplementation with protein to help the healing process. A wound culture was obtained on 07/14/22, which was positive for Staphylococcus aureus and was treated with Augmentin. Wound culture obtained 11/10/22 which was positive for MSSA and he completed the Augmentin. Patient had a diverting colostomy on 11/21/22. The diversion of the stool has made a noticeable difference in the healing of the ulcer. Encouraged increased protein intake to help with wound healing. Encouraged patient to stop smoking as it may have deleterious effects on wound healing. Stressed importance of not smoking how how it impacts wound healing and potential future surgeries, including flaps, he should really stop smoking. Follow up 2 weeks. From previous note from Dr. Messina: The ulcer is ready for further operative debridement in preparation for closure with a fasciocutaneous flap or a muscle flap since he is wheelchair dependent. The patient has expressed interest in pursuing further surgery with the goal of a closed wound. Patient is a smoker. Encouraged patient to stop smoking as it may have deleterious effects on wound healing. It will affect the healing of the flap andmay lead to incisional breakdown and recurrence of the pressure sore. He stateshe will try to stop smoking. Since this is an elective procedure, we are in no hurry to proceed. So will check a nicotine level prior to any surgery that is scheduled. Also would like to maximize his nutrition which would maximize the healing process. His last Prealbumin from 04/29/22 was 13.4. Ideally would like to see it above 20. At the time of the excision of the pressure sore, will check soft tissue and bone cultures. A positive culture will necessitate antibiotic therapy. This way we will know which antibiotics to use perioperatively. If the culture showsMRSA or Pseudomonas or MDR organisms, I would treat for 6 weeks before proceeding with wound closure. Postoperatively he will be on bedrest and would most likely benefit from a stay at an [facility] during this time. Patient was informed of the risks and complications of the procedure including alternatives to surgery. These were discussed with the patient personally. Patient voices understanding and wishes to proceed. Potential risks and complications included but not inclusive of bleeding, infection, seroma, hematoma, bruising, swelling, prolonged need for drains, lossof sensation to skin, partial or complete loss of skin flap and/or skin graft, wound breakdown, need for wound care, poor scarring, poor aesthetic outcome, intra operative cardiac or neurologic events, DVT, PE, and reaction to anesthesia. 04/07/23 1422 <Electronically signed by Kemi Rubio NP [employer]> Cosigner Signature (if applicable): CC: ~ Signed [facility] Work Phone: 1(965) 668-320912-19-2023 Progress note Author Kemi [facility] March 17, 2023 11:39am Note Date/Time March 16, 2023 11:54am [facility] [address] [place] [id number] Progress Note - Wound Care 03/16/23 1154 MR#: [id number] Acct: [id number] Name: JORGE COVINGTON Rep #:[id number] : 1955 67 From: Kemi Jaquez DAVID LUBE MAN-C PCP: Dr. Nathanael Cardona MD Status:RE G RCR Location: History of Present Illness Date of Service: 03/16/23 Chief Complaint: Right ischial pressure sore, Stage IV. History of Wound: This is a 67-year-old white male who presented to the wound healing center with complaints of pressure ulcer to right buttock area with extension to the right ischial bone. This started in October,. Patient's was treating with OTC creams and keeping area clean. The ulcer starting increasing in size and went to the Emergency Department on 02/08/22. CT showed subcutaneous and deep soft tissue involvement and possible early abscess formation. The bone was not addressed. He had a wound culture on 02/28/22. It was positive for E. coli, Staphylococcus aureus, and Clostridium perfringens. He was treated with Augmentin. The patient has very limited mobility as a result of a prior spine injury/surgery. He utilizes a wheelchair at all times. He has not been using his billy lift at home to transfer but has been using a board to slide himself from his bed to chair at home. He sits in his wheelchair almost all day, not really able to change positions. They finally obtained a low air loss overlay totheir regular mattress at home. A roho cushion was ordered for his wheelchair. Patient is a smoker. Surgery 04/28/22 - Excision right ischial pressure sore, Stage IV, with partial ostectomy for osteomyelitis. Size of wound 8 x 7 x 4.5 cm. Operative tissue cultures positive for MSSA and Cutibacterium acnes. Bone cultures positive for MSSA and Corynebacterium striatum. He is being treated with Augmentin. Pathology from surgery 04/28/22 showed chronic reparative and reactive change. No evidence of acute osteomyelitis. He had a diverting colostomy placed on 11/21/[address] Romero. Wound culture from 07/14/22 positive for Staphylococcus aureus and he was treatedwith Augmentin. Wound culture obtained 11/10/22 which was positive for Staphylococcus aureus and he was treated with Augmentin. Prealbumin 13.4 on 04/29/22. Encourage nutritional supplementation with protein to help the healing process. He was seen in the ED on 05/02/22 because of a couple falls he experienced since his surgery. CT of his pelvis showed some bony disruption at the level of the inferior pubic ramus suggests a mild osteomyelitis. Today he denies fever. His appetite is ok. Progress of Wound: Stable. Bone still palpable and is painful when palpated. His tunneling has notimproved. Objective Data Objective Data Vital Signs: Vital Signs Temp Pulse Resp BP O2 Del Method 97.1 F L 91 18 145/74 H Room Air 03/16/23 08:57 03/16/23 08:57 03/16/23 08:57 03/16/23 08:57 03/16/23 08:57 Oxygen Delivery Method Room Air Weight: 220 lb Body Mass Index (BMI) 35.5 Charges/Coding Procedures Integumentary 111xxx-113xx: 90908 Lillian musc/fascia 20 sq cm/< (ICD-10 - L89.314, M86.9, F17.200, Z99.3) Add On Codes: 35743 Lillian musc/fascia add-on (ICD-10 - L89.314, M86.9, F17.200, Z99.3) Debridement Note Debridement Note Wound debrided: #5 Right ischial area. Laterality: Right Wound Grade/Stage: IV. Type of Debridement: Excisional debridement Anesthesia Used: 5% Lidocaine Gel Depth: Down to and including healthy tissue, in the subcutaneous layer, to muscle and to bone (bone is palpable but not exposed.) Percentage of wound debrided: 100 Instrument Used: 7mm curette Tissue Removed: subcutaneous tissue and muscle. Severity: Fat Layer Exposed (muscle is exposed. bone is palpable but not exposed. Bone was not debrided today.) Amount of bleeding with debridement: Mild Bleeding Controlled with: Pressure and Compression and gauze Patient tolerated procedure: Patient tolerated procedure well Debridement Free Text: Bone palpated but not debrided. Post-Debridement Measurements and Additional Note: Post-Debridement Measurements/Treatment - Nurse 1 - General Ulcer Assessment Start: 03/02/23 10:58 Freq: Status: Active Protocol: .LOWEXT Activity Type Activity Date Activity User E-sign Co-sign Detail Recorded Client Recorded Date Recorded By Document 03/02/23 10:58 [facility] Desktop 03/02/23 11:06 [facility] Document 03/16/23 08:57 Desktop 03/16/23 09:07 03/02/23 03/16/23 10:58 08:57 - Today's Visit Information Type of service Follow-up Visit Follow-up Visit (Physician/HEAD BAKER (Physician/HEAD BAKER ) ) Arrival Mode Wheelchair Wheelchair Transfer Assistance Billy Lift Billy Lift Transfer Assist (Other) BF Patient Identification Verified (Name & Yes Yes ) Patient Requires Transmission-Based No Precautions Height and Weight Body Mass Index (BMI) 35.5 35.5 BMI Classification Obese Obese Vital Signs Temperature (97.8 F-99.1 F) 96.4 F L 97.1 F L Temperature Source Temporal Temporal Pulse Rate (60-100) 84 91 Pulse Location Monitor Monitor Respiratory Rate (12-18) 16 18 Respiratory rate source Observation Observation Oxygen Delivery Method Room Air Room Air Blood Pressure (90/60-120/80) 121/53 H 145/74 H Blood Pressure Mean (mm Hg) 75 97 Source Monitor Monitor Position Sitting Sitting Blood Pressure Location Left Arm Left Arm History Since Last Visit- (Skip if this is Patient's initial visit) Have you changed medications since your No No last visit? Any new allergies or adverse reactions No No Had a fall/change in ADL's that may No No increase risk of falls Signs or symptoms of abuse and/or No No neglect since last visit Have you been in the hospital since your No No last visit? Has dressing in place as prescribed Yes Yes Has compression in place as prescribed N/A No Has offloadiing in place as prescribed N/A No Experienced any changes in pain level or No No management Left Footwear Regular Shoe Regular Shoe Right Footwear Regular Shoe Regular Shoe Pain Scale: 0-10 Numeric Is Patient Pain Free? Yes Yes - Nurse 1 - General Ulcer Measurement Start: 03/02/23 10:58 Freq: Status: Active Protocol: Activity Type Activity Date Activity User E-sign Co-sign Detail Recorded Client Recorded Date Recorded By Document 03/02/23 10:58 [facility] Desktop 03/02/23 11:06 [facility] Document 03/16/23 08:57 [employer] Desktop 03/16/23 09:07 03/02/23 03/16/23 10:58 08:57 Wound Center Nurse 1 #5- R ischium -Combined with other wound No -Current Size (cm) - Length 6 5.7 -Current Size (cm) - Width 5 4.0 -Current Size (cm) - Depth 3.4 3.4 -Total Square Cm 30 22.80 -Photo Taken No -Tunneling Yes Yes -Tunneling Position (O'clock) 12 12 -Tunneling Distance (cm) 7.7 7.9 -Undermining/Tunneling No -Circular Undermining No -Exudate Amt Large Medium -Exudate Type Serosanguineous Serosanguineous -Wound Margin Distinct, Distinct, Outline Outline Attached Attached -Granulation Amt Large (67-100%) Large (67-100%) -Granulation Quality Red Red -Slough/Fibrin No -Necrosis Amt None Present (0 %) -Structure Exposed Bone -Texture (Michelle-wound Skin Appearance) Assessed, Assessed Scarring -Moisture (Michelle-wound Skin Appearance) Assessed, Maceration Maceration -Color (Michelle-wound Skin Appearance) Assessed Assessed -Temperature (Michelle-wound Skin No Abnormality No Abnormality Appearance) (Pt Warm) (Pt Warm) -Tenderness on Palpation (Michelle-wound Yes No Skin Appearance) -Ulcer Cleansing Soap and Water Soap and Water -Foul Odor after Cleansing No No -Anesthetic Used 4% Lidocaine 4% Lidocaine Solution Solution Lower Limb Edema Present NA WC - Nurse 2 - General Ulcer CM Notes Start: 03/02/23 10:58 Freq: Status: Active Protocol: Activity Type Activity Date Activity User E-sign Co-sign Detail Recorded Client Recorded Date Recorded By Document 03/02/23 11:22 Laptop 03/02/23 11:31 Document 03/16/23 09:19 Laptop 03/16/23 09:21 03/02/23 03/16/23 11:22 09:19 Wound Center Nurse 2 #5- R ischium -Time 11:24 09:20 -Correct Patient Yes Yes -Correct Side, Site, Position Yes Yes -Correct Procedure Yes Yes -Procedure Performed Yes Yes -Type of Procedure Debridement Debridement -Clinical Debridement Muscle / Fascia Muscle / Fascia -Tissue Removed Muscle,Fascia Muscle -Post Debridement (cm) - Length 6.1 5.5 -Post Debridement (cm) - Width 5.1 5 -Post Debridement (cm) - Depth 3.5 2.6 -Total Square (Post) (cm) 31.11 27.5 -Area of Debridement (cm) - Length 6.1 5.5 -Area of Debridement (cm) - Width 5.1 5 -Total Square (Area) (cm) 31.11 27.5 -Tunneling Yes No -Tunneling Position (O'clock) 12 -Tunneling Distance (cm) 7.8 -Undermining/Tunneling No No -Circular Undermining No No -Wound/Ulcer Outcome Not Healed Not Healed -Ulcer Cleansing Rinsed/ Rinsed/ Irrigated with Irrigated with Saline Saline -Foul Odor after Cleansing No No -Bioengineered Tissue No No -Bleeding Controlled with Pressure Pressure -Treatment Response Procedure Procedure Tolerated Well Tolerated Well -Offloading No No -Pressure Reduction Wheelchair Wheelchair cushion cushion, Mattress overlay -Debridement - Muscle / Fascia, 1st Yes Yes 20sq cm -Debridement, Muscle/Fascia, ea addt'l 1 1 20sq cm or part thereof Pain Scale: 0-10 Numeric Is Patient Pain Free? Yes Yes - Nurse 3 - General Ulcer D/C NN Start: 03/02/23 10:58 Freq: Status: Active Protocol: Activity Type Activity Date Activity User E-sign Co-sign Detail Recorded Client Recorded Date Recorded By Document 03/02/23 11:35 [facility] Desktop 03/02/23 11:36 [employer] Document 03/16/23 09:26 [employer] Desktop 03/16/23 09:26 [facility] 03/02/23 03/16/23 11:35 09:26 Wound Care Center Nurse 3 #5- R ischium -Ulcer Cleansing Rinsed/ Rinsed/ Irrigated with Irrigated with Saline Saline -Foul Odor after Cleansing No No -Other Dressing dakin moist dakins moist gauze gauze -Primary Dressing Covered/Secured with Secured with Secured with Tape Tape -Other Covering abd; per dl data communications analyst abd Treatment Response Procedure Procedure Tolerated Well Tolerated Well Pain Scale: 0-10 Numeric Is Patient Pain Free? Yes Yes - Visit Discharge Discharge Condition Stable Stable Ambulatory Status Wheelchair Wheelchair Transportation transit co. Facility Type Home Health Home Health Assessment/Plan Assessment/Plan (1) Right ischial pressure sore, stage 4: CODE(S): L89.314 - Pressure ulcer of right buttock, stage 4 (2) Osteomyelitis of right side of pelvis: CODE(S): M86.9 - Osteomyelitis, unspecified (3) Smoker: CODE(S): F17.200 - Nicotine dependence, unspecified, uncomplicated (4) Wheelchair dependent: CODE(S): Z99.3 - Dependence on wheelchair PLAN: Plan Wound care - Dakins 0.25% moistened gauze covered by ABD/super absorber daily and as needed. They have home health to help assist with his dressing changes. Operative tissue cultures positive for MSSA and Cutibacterium acnes. Bone cultures positive for MSSA and Corynebacterium striatum. He completed Augmentin. He was seen in the ED on 05/02/22 because of a couple falls he experienced since his surgery. CT of his pelvis showed some bony disruption at the level of the inferior pubic ramus suggests a mild osteomyelitis. Prealbumin 13.4 on 04/29/22. Anticipate increased metabolic demands from the infection. Encourage nutritional supplementation with protein to help the healing process. A wound culture was obtained on 07/14/22, which was positive for Staphylococcus aureus and was treated with Augmentin. Wound culture obtained 11/10/22 which was positive for MSSA and he completed the Augmentin. Patient had a diverting colostomy on 11/21/22. The diversion of the stool has made a noticeable difference in the healing of the ulcer. The ulcer is ready for further operative debridement in preparation for closure with a fasciocutaneous flap or a muscle flap since he is wheelchair dependent. The patient has expressed interest in pursuing further surgery with the goal of a closed wound. Patient is a smoker. Encouraged patient to stop smoking as it may have deleterious effects on wound healing. It will affect the healing of the flap andmay lead to incisional breakdown and recurrence of the pressure sore. He stateshe will try to stop smoking. Since this is an elective procedure, we are in no hurry to proceed. So will check a nicotine level prior to any surgery that is scheduled. Also would like to maximize his nutrition which would maximize the healing process. His last Prealbumin from 04/29/22 was 13.4. Ideally would like to see it above 20. At the time of the excision of the pressure sore, will check soft tissue and bone cultures. A positive culture will necessitate antibiotic therapy. This way we will know which antibiotics to use perioperatively. If the culture showsMRSA or Pseudomonas or MDR organisms, I would treat for 6 weeks before proceeding with wound closure. Postoperatively he will be on bedrest and would most likely benefit from a stay at an [facility] during this time. Patient was informed of the risks and complications of the procedure including alternatives to surgery. These were discussed with the patient personally. Patient voices understanding and wishes to proceed. Potential risks and complications included but not inclusive of bleeding, infection, seroma, hematoma, bruising, swelling, prolonged need for drains, lossof sensation to skin, partial or complete loss of skin flap and/or skin graft, wound breakdown, need for wound care, poor scarring, poor aesthetic outcome, intra operative cardiac or neurologic events, DVT, PE, and reaction to anesthesia. Encouraged increased protein intake to help with wound healing. Follow up 3 weeks. 03/17/23 1139 <Electronically signed by Kemi Rubio NP [employer]BE [employer]> Cosigner Signature (if applicable): CC: ~ Signed [facility] Work Phone: 1(954) 678-386712-08-2023 Telephone encounter Note* Telephone Encounter - Adilene Campbell RN - 03/06/2023 5:40 PM EST S: pt calling CAC d/t returning call [...] Protocols used: Information Only Call - No [id number] [id number] Miscellaneous Notes* Telephone Encounter - Adilene Campbell RN - 03/06/2023 5:40 PM EST S: pt calling CAC d/t returning call [...] Protocols used: Information Only Call - No [id number] documented in this [facility]12-07-2023 Progress note Author Popeye Messina [facility] March 04, 2023 10:49pm Note Date/Time March 04, 2023 8 :33am [facility] [address] [place] [address] Progress Note - Wound Care 03/02/23 1240 MR#: [id number] Acct: [id number] Name: JORGE COVINGTON Rep #:[id number] : 1955 67 From: Popeye Walker PCP: Dr. Nathanael Cardona MD Status:RE G RCR Location: History of Present Illness Date of Service: 03/02/23 Chief Complaint: Right ischial pressure sore, Stage IV. History of Wound: This is a 67-year-old white male who presented to the wound healing center with complaints of pressure ulcer to right buttock area with extension to the right ischial bone. This started in October,. Patient's was treating with OTC creams and keeping area clean. The ulcer starting increasing in size and went to the Emergency Department on 02/08/22. CT showed subcutaneous and deep soft tissue involvement and possible early abscess formation. The bone was not addressed. He had a wound culture on 02/28/22. It was positive for E. coli, Staphylococcus aureus, and Clostridium perfringens. He was treated with Augmentin. The patient has very limited mobility as a result of a prior spine injury/surgery. He utilizes a wheelchair at all times. He has not been using his billy lift at home to transfer but has been using a board to slide himself from his bed to chair at home. He sits in his wheelchair almost all day, not really able to change positions. They finally obtained a low air loss overlay totheir regular mattress at home. A roho cushion was ordered for his wheelchair. Patient is a smoker. Surgery 04/28/22 - Excision right ischial pressure sore, Stage IV, with partial ostectomy for osteomyelitis. Size of wound 8 x 7 x 4.5 cm. Operative tissue cultures positive for MSSA and Cutibacterium acnes. Bone cultures positive for MSSA and Corynebacterium striatum. He is being treated with Augmentin. Pathology from surgery 04/28/22 showed chronic reparative and reactive change. No evidence of acute osteomyelitis. He had a diverting colostomy placed on 11/21/[address] Romero. Wound culture from 07/14/22 positive for Staphylococcus aureus and he was treatedwith Augmentin. Wound culture obtained 11/10/22 which was positive for Staphylococcus aureus and he was treated with Augmentin. Prealbumin 13.4 on 04/29/22. Encourage nutritional supplementation with protein to help the healing process. He was seen in the ED on 05/02/22 because of a couple falls he experienced since his surgery. CT of his pelvis showed some bony disruption at the level of the inferior pubic ramus suggests a mild osteomyelitis. Today he denies fever. His appetite is ok. Progress of Wound: Slight improvement. There is a lot of dense bursal scar tissue on the edges andin the base of the ulcer. Objective Data Objective Data Vital Signs: Vital Signs Temp Pulse Resp BP O2 Del Method 96.4 F L 84 16 121/53 H Room Air 03/02/23 10:58 03/02/23 10:58 03/02/23 10:58 03/02/23 10:58 03/02/23 10:58 Oxygen Delivery Method Room Air Weight: 220 lb Body Mass Index (BMI) 35.5 Prealbumin from 04/29/22 was 13.4. Encourage nutritional supplementation with protein to help the healing process. Lab / Micro Data Attestation: I reviewed the patient's lab results. Charges/Coding Procedures Integumentary 111xxx-113xx: 52305 Lillian musc/fascia 20 sq cm/< (ICD-10 - L89.314, M86.9, F17.200, Z99.3) Add On Codes: 10243 Lillian musc/fascia add-on (ICD-10 - L89.314, M86.9, F17.200, Z99.3) Debridement Note Debridement Note Wound debrided: #5 Right ischial area. Laterality: Right Wound Grade/Stage: IV. Type of Debridement: Excisional debridement Anesthesia Used: 5% Lidocaine Gel Depth: Down to and including healthy tissue, in the subcutaneous layer, to muscle and to bone (bone is palpable but not exposed.) Percentage of wound debrided: 100 Instrument Used: 5mm curette Tissue Removed: subcutaneous tissue and muscle. Severity: Fat Layer Exposed (muscle is exposed. bone is palpable but not exposed. Bone was not debrided today.) Amount of bleeding with debridement: Mild Bleeding Controlled with: Pressure and Compression and gauze Patient tolerated procedure: Patient tolerated procedure well Post-Debridement Measurements and Additional Note: Post-Debridement Measurements/Treatment WC - Nurse 1 - General Ulcer Assessment Start: 03/02/23 10:58 Freq: Status: Active Protocol: KIRA Activity Type Activity Date Activity User E-sign Co-sign Detail Recorded Client Recorded Date Recorded By Document 03/02/23 10:58 [facility] Desktop 03/02/23 11:06 [facility] 03/02/23 10:58 WC - Today's Visit Information Type of service Follow-up Visit (Physician/HEAD BAKER ) Arrival Mode Wheelchair Transfer Assistance Billy Lift Patient Identification Verified (Name & Yes ) Patient Requires Transmission-Based No Precautions Height and Weight Body Mass Index (BMI) 35.5 BMI Classification Obese Vital Signs Temperature (97.8 F-99.1 F) 96.4 F L Temperature Source Temporal Pulse Rate (60-100) 84 Pulse Location Monitor Respiratory Rate (12-18) 16 Respiratory rate source Observation Oxygen Delivery Method Room Air Blood Pressure (90/60-120/80) 121/53 H Blood Pressure Mean (mm Hg) 75 Source Monitor Position Sitting Blood Pressure Location Left Arm History Since Last Visit- (Skip if this is Patient's initial visit) Have you changed medications since your No last visit? Any new allergies or adverse reactions No Had a fall/change in ADL's that may No increase risk of falls Signs or symptoms of abuse and/or No neglect since last visit Have you been in the hospital since your No last visit? Has dressing in place as prescribed Yes Has compression in place as prescribed N/A Has offloadiing in place as prescribed N/A Experienced any changes in pain level or No management Left Footwear Regular Shoe Right Footwear Regular Shoe Pain Scale: 0-10 Numeric Is Patient Pain Free? Yes - Nurse 1 - General Ulcer Measurement Start: 03/02/23 10:58 Freq: Status: Active Protocol: Activity Type Activity Date Activity User E-sign Co-sign Detail Recorded Client Recorded Date Recorded By Document 03/02/23 10:58 [facility] [employer] 03/02/23 11:06 [facility] 03/02/23 10:58 Wound Center Nurse 1 #5- R ischium -Combined with other wound No -Current Size (cm) - Length 6 -Current Size (cm) - Width 5 -Current Size (cm) - Depth 3.4 -Total Square Cm 30 -Photo Taken No -Tunneling Yes -Tunneling Position (O'clock) 12 -Tunneling Distance (cm) 7.7 -Undermining/Tunneling No -Circular Undermining No -Exudate Amt Large -Exudate Type Serosanguineous -Wound Margin Distinct, Outline Attached -Granulation Amt Large (67-100%) -Granulation Quality Red -Slough/Fibrin No -Necrosis Amt None Present (0 %) -Structure Exposed Bone -Texture (Michelle-wound Skin Appearance) Assessed, Scarring -Moisture (Michelle-wound Skin Appearance) Assessed, Maceration -Color (Michelle-wound Skin Appearance) Assessed -Temperature (Michelle-wound Skin No Abnormality Appearance) (Pt Warm) -Tenderness on Palpation (Michelle-wound Yes Skin Appearance) -Ulcer Cleansing Soap and Water -Foul Odor after Cleansing No -Anesthetic Used 4% Lidocaine Solution WC - Nurse 2 - General Ulcer CM Notes Start: 03/02/23 10:58 Freq: Status: Active Protocol: Activity Type Activity Date Activity User E-sign Co-sign Detail Recorded Client Recorded Date Recorded By Document 03/02/23 11:22 Laptop 03/02/23 11:31 03/02/23 11:22 Wound Center Nurse 2 -Time 11:24 -Correct Patient Yes -Correct Side, Site, Position Yes -Correct Procedure Yes -Procedure Performed Yes -Type of Procedure Debridement -Clinical Debridement Muscle / Fascia -Tissue Removed Muscle,Fascia -Post Debridement (cm) - Length 6.1 -Post Debridement (cm) - Width 5.1 -Post Debridement (cm) - Depth 3.5 -Total Square (Post) (cm) 31.11 -Area of Debridement (cm) - Length 6.1 -Area of Debridement (cm) - Width 5.1 -Total Square (Area) (cm) 31.11 -Tunneling Yes -Tunneling Position (O'clock) 12 -Tunneling Distance (cm) 7.8 -Undermining/Tunneling No -Circular Undermining No -Wound/Ulcer Outcome Not Healed -Ulcer Cleansing Rinsed/ Irrigated with Saline -Foul Odor after Cleansing No -Bioengineered Tissue No -Bleeding Controlled with Pressure -Treatment Response Procedure Tolerated Well -Offloading No -Pressure Reduction Wheelchair cushion -Debridement - Muscle / Fascia, 1st Yes 20sq cm -Debridement, Muscle/Fascia, ea addt'l 1 20sq cm or part thereof Pain Scale: 0-10 Numeric Is Patient Pain Free? Yes - Nurse 3 - General Ulcer D/C NN Start: 03/02/23 10:58 Freq: Status: Active Protocol: Activity Type Activity Date Activity User E-sign Co-sign Detail Recorded Client Recorded Date Recorded By Document 03/02/23 11:35 [facility] Desktop 03/02/23 11:36 [facility] 03/02/23 11:35 Wound Care Center Nurse 3 #5- R ischium -Ulcer Cleansing Rinsed/ Irrigated with Saline -Foul Odor after Cleansing No -Other Dressing dakin moist gauze -Primary Dressing Covered/Secured with Secured with Tape -Other Covering abd; per dl data communications analyst Treatment Response Procedure Tolerated Well Pain Scale: 0-10 Numeric Is Patient Pain Free? Yes WC - Visit Discharge Discharge Condition Stable Ambulatory Status Wheelchair Transportation transit co. Facility Type Home Health Assessment/Plan Assessment/Plan (1) Right ischial pressure sore, stage 4: CODE(S): L89.314 - Pressure ulcer of right buttock, stage 4 (2) Osteomyelitis of right side of pelvis: CODE(S): M86.9 - Osteomyelitis, unspecified (3) Smoker: CODE(S): F17.200 - Nicotine dependence, unspecified, uncomplicated (4) Wheelchair dependent: CODE(S): Z99.3 - Dependence on wheelchair PLAN: Plan Wound care - Dakins 0.25% moistened gauze covered by ABD/super absorber daily and as needed. They have home health to help assist with his dressing changes. Operative tissue cultures positive for MSSA and Cutibacterium acnes. Bone cultures positive for MSSA and Corynebacterium striatum. He completed Augmentin. He was seen in the ED on 05/02/22 because of a couple falls he experienced since his surgery. CT of his pelvis showed some bony disruption at the level of the inferior pubic ramus suggests a mild osteomyelitis. Prealbumin 13.4 on 04/29/22. Anticipate increased metabolic demands from the infection. Encourage nutritional supplementation with protein to help the healing process. A wound culture was obtained on 07/14/22, which was positive for Staphylococcus aureus and was treated with Augmentin. Wound culture obtained 11/10/22 which was positive for MSSA and he completed the Augmentin. Patient had a diverting colostomy on 11/21/22. The diversion of the stool has made a noticeable difference in the healing of the ulcer. The ulcer is ready for further operative debridement in preparation for closure with a fasciocutaneous flap or a muscle flap since he is wheelchair dependent. The patient has expressed interest in pursuing further surgery with the goal of a closed wound. Patient is a smoker. Encouraged patient to stop smoking as it may have deleterious effects on wound healing. It will affect the healing of the flap andmay lead to incisional breakdown and recurrence of the pressure sore. He stateshe will try to stop smoking. Since this is an elective procedure, we are in no hurry to proceed. So will check a nicotine level prior to any surgery that is scheduled. Also would like to maximize his nutrition which would maximize the healing process. His last Prealbumin from 04/29/22 was 13.4. Ideally would like to see it above 20. At the time of the excision of the pressure sore, will check soft tissue and bone cultures. A positive culture will necessitate antibiotic therapy. This way we will know which antibiotics to use perioperatively. If the culture showsMRSA or Pseudomonas or MDR organisms, I would treat for 6 weeks before proceeding with wound closure. Postoperatively he will be on bedrest and would most likely benefit from a stay at an [facility] during this time. Patient was informed of the risks and complications of the procedure including alternatives to surgery. These were discussed with the patient personally. Patient voices understanding and wishes to proceed. Potential risks and complications included but not inclusive of bleeding, infection, seroma, hematoma, bruising, swelling, prolonged need for drains, lossof sensation to skin, partial or complete loss of skin flap and/or skin graft, wound breakdown, need for wound care, poor scarring, poor aesthetic outcome, intra operative cardiac or neurologic events, DVT, PE, and reaction to anesthesia. Until the surgery, continue followup at the Wound Center in 2 weeks. 03/04/232248 <Electronically signed by Popeye Messina MD> Cosigner Signature (if applicable): CC: ~ Signed [facility] Work Phone: 1(873) 467-561611-20-2023 Progress note Author Kemi Rubio [facility] February 16, 2023 11:10am Note Date/Time February 16, 2023 11:05am [facility] [address] [place] [address] Progress Note - Wound Care 02/16/23 1100 MR#: [id number] Acct: [id number] Name: JORGE COVINGTON Rep #:[id number] : 1955 67 From: Kemi santiago LUBE MAN [employer]BE [employer] PCP: Dr. Nathanael Cardona MD Status:RE G RCR Location: History of Present Illness Date of Service: 02/16/23 Chief Complaint: Right ischial pressure sore, Stage IV. History of Wound: This is a 67-year-old white male who presented to the wound healing center with complaints of pressure ulcer to right buttock area with extension to the right ischial bone. This started in October,. Patient's was treating with OTC creams and keeping area clean. The ulcer starting increasing in size and went to the Emergency Department on 02/08/22. CT showed subcutaneous and deep soft tissue involvement and possible early abscess formation. The bone was not addressed. He had a wound culture on 02/28/22. It was positive for E. coli, Staphylococcus aureus, and Clostridium perfringens. He was treated with Augmentin. The patient has very limited mobility as a result of a prior spine injury/surgery. He utilizes a wheelchair at all times. He has not been using his billy lift at home to transfer but has been using a board to slide himself from his bed to chair at home. He sits in his wheelchair almost all day, not really able to change positions. They finally obtained a low air loss overlay totheir regular mattress at home. A roho cushion was ordered for his wheelchair. Patient is a smoker. Surgery 04/28/22 - Excision right ischial pressure sore, Stage IV, with partial ostectomy for osteomyelitis. Size of wound 8 x 7 x 4.5 cm. Operative tissue cultures positive for MSSA and Cutibacterium acnes. Bone cultures positive for MSSA and Corynebacterium striatum. He is being treated with Augmentin. He had a diverting colostomy placed on 11/21/[address] Romero. Wound culture from 07/14/22 positive for Staphylococcus aureus and he was treatedwith Augmentin. Wound culture obtained 11/10/22 which was positive for Staphylococcus aureus and he was treated with Augmentin. Prealbumin 13.4 on 04/29/22. He was seen in the ED on 05/02/22 because of a couple falls he experienced since his surgery. CT of his pelvis showed some bony disruption at the level of the inferior pubic ramus suggests a mild osteomyelitis. Anticipate increased metabolic demands from the infection. Encourage nutritional supplementation with protein to help the healing process. Today he denies fever. His appetite is ok. Progress of Wound: The ulcer is into the muscle with small area of bone still palpable in the tunnel at 12 o'clock. There is undermining from 12-4. He is tolerating the daily Dakin's moistened gauze dressing changes. Objective Data Objective Data Vital Signs: Vital Signs Temp Pulse Resp BP O2 Del Method 95.3 F L 83 16 136/81 H Room Air 02/16/23 08:54 02/16/23 08:54 02/16/23 08:54 02/16/23 08:54 02/16/23 08:54 Oxygen Delivery Method Room Air Weight: 220 lb Body Mass Index (BMI) 35.5 Charges/Coding Procedures Integumentary 111xxx-113xx: 42620 Lillian musc/fascia 20 sq cm/< Add On Codes: 68789 Lillian musc/fascia add-on Debridement Note Debridement Note Wound debrided: Ischial ulcer Laterality: Right Wound Grade/Stage: Stage IV Type of Debridement: Excisional debridement Anesthesia Used: 5% Lidocaine Gel Depth: Down to and including healthy tissue, in the subcutaneous layer and to muscle Percentage of wound debrided: 100 Instrument Used: 7mm curette Tissue Removed: Devitalized tissue and slough into the muscle Severity: Fat Layer Exposed Amount of bleeding with debridement: Mild Bleeding Controlled with: Pressure and Compression and gauze Patient tolerated procedure: Patient tolerated procedure well Debridement Free Text: Ulcer into the muscle, bone is palpable but not debrided.The area where the bone is palpable is very tender to palpation. Post-Debridement Measurements and Additional Note: Post-Debridement Measurements/Treatment WC - Nurse 1 - General Ulcer Assessment Start: 02/16/23 08:54 Freq: Status: Active Protocol: KIRA Activity Type Activity Date Activity User E-sign Co-sign Detail Recorded Client Recorded Date Recorded By Document 02/16/23 08:54 [facility] Desktop 02/16/23 09:02 [facility] 02/16/23 08:54 WC - Today's Visit Information Type of service Follow-up Visit (Physician/HEAD BAKER ) Arrival Mode Wheelchair Transfer Assistance Billy Lift Transfer Assist (Other) 2 Patient Identification Verified (Name & Yes ) Patient Requires Transmission-Based No Precautions Height and Weight Body Mass Index (BMI) 35.5 BMI Classification Obese Vital Signs Temperature (97.8 F-99.1 F) 95.3 F L Temperature Source Temporal Pulse Rate (60-100) 83 Pulse Location Monitor Respiratory Rate (12-18) 16 Respiratory rate source Observation Oxygen Delivery Method Room Air Blood Pressure (90/60-120/80) 136/81 H Blood Pressure Mean (mm Hg) 99 Source Monitor Position Sitting Blood Pressure Location Left Arm History Since Last Visit- (Skip if this is Patient's initial visit) Have you changed medications since your No last visit? Any new allergies or adverse reactions No Had a fall/change in ADL's that may No increase risk of falls Signs or symptoms of abuse and/or No neglect since last visit Have you been in the hospital since your No last visit? Has dressing in place as prescribed Yes Has compression in place as prescribed N/A Has offloadiing in place as prescribed N/A Experienced any changes in pain level or No management Left Footwear Regular Shoe Right Footwear Regular Shoe Pain Scale: 0-10 Numeric Is Patient Pain Free? Yes WC - Nurse 1 - General Ulcer Measurement Start: 02/16/23 08:54 Freq: Status: Active Protocol: Activity Type Activity Date Activity User E-sign Co-sign Detail Recorded Client Recorded Date Recorded By Document 02/16/23 08:54 [facility] Desktop 02/16/23 09:02 [facility] 02/16/23 08:54 Wound Center Nurse 1 #5- R ischium -Combined with other wound No -Current Size (cm) - Length 2.5 -Current Size (cm) - Width 6.5 -Current Size (cm) - Depth 2 -Total Square Cm 16.25 -Epithelialization Small 1-33% -Tunneling Yes -Tunneling Position (O'clock) 12 -Tunneling Distance (cm) 5 -Undermining/Tunneling No -Circular Undermining No -Exudate Amt Large -Exudate Type Serosanguineous -Wound Margin Distinct, Outline Attached -Granulation Amt Large (67-100%) -Granulation Quality Red -Slough/Fibrin No -Necrosis Amt None Present (0 %) -Texture (Michelle-wound Skin Appearance) Assessed, Scarring -Moisture (Michelle-wound Skin Appearance) Assessed, Maceration -Color (Michelle-wound Skin Appearance) Assessed -Temperature (Michelle-wound Skin No Abnormality Appearance) (Pt Warm) -Tenderness on Palpation (Michelle-wound No Skin Appearance) -Ulcer Cleansing Soap and Water -Foul Odor after Cleansing No -Anesthetic Used 4% Lidocaine Solution - Nurse 2 - General Ulcer CM Notes Start: 02/16/23 08:54 Freq: Status: Active Protocol: Activity Type Activity Date Activity User E-sign Co-sign Detail Recorded Client Recorded Date Recorded By Document 02/16/23 09:15 Laptop 02/16/23 09:17 02/16/23 09:15 Wound Center Nurse 2 -Time 09:15 -Correct Patient Yes -Correct Side, Site, Position Yes -Correct Procedure Yes -Procedure Performed Yes -Type of Procedure Debridement -Clinical Debridement Muscle / Fascia -Tissue Removed Muscle,Fascia -Post Debridement (cm) - Length 6.5 -Post Debridement (cm) - Width 4.0 -Post Debridement (cm) - Depth 1.5 -Total Square (Post) (cm) 26.00 -Area of Debridement (cm) - Length 6.5 -Area of Debridement (cm) - Width 4.0 -Total Square (Area) (cm) 26.00 -Tunneling Yes -Tunneling Position (O'clock) 12 -Tunneling Distance (cm) 8.4 -Undermining/Tunneling Yes -Undermining/Tunneling Starts (O'clock 12 ) -Undermining/Tunneling Ends (O'clock) 4 -Maximum Distance (cm) 8.4 -Circular Undermining No -Wound/Ulcer Outcome Not Healed -Ulcer Cleansing Rinsed/ Irrigated with Saline -Foul Odor after Cleansing No -Bioengineered Tissue No -Bleeding Controlled with Pressure -Treatment Response Procedure Tolerated Well -Offloading No -Pressure Reduction Wheelchair cushion -Debridement - Muscle / Fascia, 1st Yes 20sq cm -Debridement, Muscle/Fascia, ea addt'l 1 20sq cm or part thereof Pain Scale: 0-10 Numeric Is Patient Pain Free? Yes - Nurse 3 - General Ulcer D/C NN Start: 02/16/23 08:54 Freq: Status: Active Protocol: Activity Type Activity Date Activity User E-sign Co-sign Detail Recorded Client Recorded Date Recorded By Document 02/16/23 09:26 DL Desktop 02/16/23 09:26 DL 02/16/23 09:26 Wound Care Center Nurse 3 #5- R ischium -Ulcer Cleansing Rinsed/ Irrigated with Saline -Foul Odor after Cleansing No -Other Dressing dakins -Primary Dressing Covered/Secured with Dry Gauze, Secured with Tape Treatment Response Procedure Tolerated Well Pain Scale: 0-10 Numeric Is Patient Pain Free? Yes WC - Visit Discharge Discharge Condition Stable Ambulatory Status Wheelchair Transportation Private Auto Facility Type [facility] Care Facility Orders Sent Yes Assessment/Plan Assessment/Plan (1) Right ischial pressure sore, stage 4: CODE(S): L89.314 - Pressure ulcer of right buttock, stage 4 (2) Osteomyelitis of right side of pelvis: CODE(S): M86.9 - Osteomyelitis, unspecified (3) Smoker: CODE(S): F17.200 - Nicotine dependence, unspecified, uncomplicated (4) Wheelchair dependent: CODE(S): Z99.3 - Dependence on wheelchair PLAN: Plan Patient evaluated at the wound center today. Wound care - Dakins 0.25% moistened gauze covered by ABD/super absorber daily and as needed. They have home health to help assist with his dressing changes. Operative tissue cultures positive for MSSA and Cutibacterium acnes. Bone cultures positive for MSSA and Corynebacterium striatum. He completed Augmentin. He was seen in the ED on 05/02/22 because of a couple falls he experienced since his surgery. CT of his pelvis showed some bony disruption at the level of the inferior pubic ramus suggests a mild osteomyelitis. Prealbumin 13.4 on 04/29/22. Anticipate increased metabolic demands from the infection. Encourage nutritional supplementation with protein to help the healing process. A wound culture was obtained on 07/14/22, which was positive for Staphylococcus aureus and was treated with Augmentin. Wound culture obtained 11/10/22 which was positive for MSSA and he completed the Augmentin. He had a colonscopy by Dr. Romero on 06/18/22. Patient has decided he will have acolostomy, which was placed 11/21/22. Follow up weeks with Dr. Messina. 02/16/23 1110 <Electronically signed by Kemi Rubio NP [employer]> Cosigner Signature (if applicable): CC: ~ Signed [facility] Work Phone: 1(846) 767-521310-27-2023 Progress note Author Kemi Rubio [facility] January 23, 2023 4:04pm Note Date/Time January 19, 2023 1 1:11am [facility] [address] [place] [address] Progress Note - Wound Care 01/19/23 1111 MR#: [id number] Acct: [id number] Name: JORGE COVINGTON Rep #:[id number] 3 : 1955 67 From: Kemi santiago NP [facility] PCP: Dr. Nathanael Cardona MD Status:RE G RCR Location: History of Present Illness Date of Service: 01/19/23 Chief Complaint: Right ischial pressure sore, Stage IV. History of Wound: This is a 67-year-old white male who presented to the wound healing center with complaints of pressure ulcer to right buttock area with extension to the right ischial bone. This started in October,. Patient's was treating with OTC creams and keeping area clean. The ulcer starting increasing in size and went to the Emergency Department on 02/08/22. CT showed subcutaneous and deep soft tissue involvement and possible early abscess formation. The bone was not addressed. He had a wound culture on 02/28/22. It was positive for E. coli, Staphylococcus aureus, and Clostridium perfringens. He was treated with Augmentin. The patient has very limited mobility as a result of a prior spine injury/surgery. He utilizes a wheelchair at all times. He has not been using his billy lift at home to transfer but has been using a board to slide himself from his bed to chair at home. He sits in his wheelchair almost all day, not really able to change positions. They finally obtained a low air loss overlay totheir regular mattress at home. A roho cushion was ordered for his wheelchair. Patient is a smoker. Surgery 04/28/22 - Excision right ischial pressure sore, Stage IV, with partial ostectomy for osteomyelitis. Size of wound 8 x 7 x 4.5 cm. Operative tissue cultures positive for MSSA and Cutibacterium acnes. Bone cultures positive for MSSA and Corynebacterium striatum. He is being treated with Augmentin. He had a diverting colostomy placed on 11/21/[address] Romero. Wound culture from 07/14/22 positive for Staphylococcus aureus and he was treatedwith Augmentin. Wound culture obtained 11/10/22 which was positive for Staphylococcus aureus and he was treated with Augmentin. Prealbumin 13.4 on 04/29/22. He was seen in the ED on 05/02/22 because of a couple falls he experienced since his surgery. CT of his pelvis showed some bony disruption at the level of the inferior pubic ramus suggests a mild osteomyelitis. Anticipate increased metabolic demands from the infection. Encourage nutritional supplementation with protein to help the healing process. Today he denies fever. His appetite is ok. Progress of Wound: The ulcer is into the muscle with small area of bone palpable that is not covered. Ulcer is stable. He had his colostomy placed at the end of October. Home health states that they are having a difficult time keeping the wound VAC dressing in place because the patient slides to get himself into and out of bed. He came to the wound center today and the wound VAC did not have a good seal and is is unknown how long it has been like this. He has a billy lift but is not able to use it by himself and he is home alone frequently due to his 's work schedule. Objective Data Objective Data Vital Signs: Vital Signs Temp Pulse Resp BP O2 Del Method 96.7 F L 74 16 118/64 Room Air 01/19/23 08:17 01/19/23 08:17 01/19/23 08:17 01/19/23 08:17 01/19/23 08:17 Oxygen Delivery Method Room Air Weight: 220 lb Body Mass Index (BMI) 35.5 Charges/Coding Procedures Integumentary 111xxx-113xx: 26190 Lillian musc/fascia 20 sq cm/< Add On Codes: 39023 Lillian musc/fascia add-on Debridement Note Debridement Note Wound debrided: Ischial ulcer Laterality: Right Wound Grade/Stage: Stage IV Type of Debridement: Excisional debridement Anesthesia Used: 5% Lidocaine Gel Depth: Down to and including healthy tissue, in the subcutaneous layer and to muscle Percentage of wound debrided: 100 Instrument Used: 7mm curette Tissue Removed: Devitalized tissue and slough into the muscle Severity: Fat Layer Exposed Amount of bleeding with debridement: Mild Bleeding Controlled with: Pressure and Compression and gauze Patient tolerated procedure: Patient tolerated procedure well Debridement Free Text: Ulcer into the muscle, bone is palpable but not debrided. Post-Debridement Measurements and Additional Note: Post-Debridement Measurements/Treatment - Nurse 1 - General Ulcer Assessment Start: 12/29/22 08:13 Freq: Status: Active Protocol: KIRA Activity Type Activity Date Activity User E-sign Co-sign Detail Recorded Client Recorded Date Recorded By Document 12/29/22 08:14 [facility] Desktop 12/29/22 08:15 [facility] Document 01/19/23 08:17 Desktop 01/19/23 08:18 12/29/22 01/19/23 08:14 08:17 - Today's Visit Information Type of service Follow-up Visit Follow-up Visit (Physician/HEAD BAKER (Physician/HEAD BAKER ) ) Arrival Mode Wheelchair Wheelchair Transfer Assistance Billy Lift Billy Lift Transfer Assist (Other) 2 Patient Identification Verified (Name & Yes Yes ) Patient Requires Transmission-Based No No Precautions Height and Weight Body Mass Index (BMI) 35.5 35.5 BMI Classification Obese Obese Vital Signs Temperature (97.8 F-99.1 F) 96.9 F L 96.7 F L Temperature Source Temporal Temporal Pulse Rate (60-100) 88 74 Pulse Location Monitor Monitor Respiratory Rate (12-18) 16 16 Respiratory rate source Observation Observation Oxygen Delivery Method Room Air Room Air Blood Pressure (90/60-120/80) 142/89 H 118/64 Blood Pressure Mean (mm Hg) 106 82 Source Monitor Monitor Position Sitting Sitting Blood Pressure Location Left Forearm Right Arm History Since Last Visit- (Skip if this is Patient's initial visit) Have you changed medications since your No No last visit? Any new allergies or adverse reactions No No Had a fall/change in ADL's that may No No increase risk of falls Signs or symptoms of abuse and/or No No neglect since last visit Have you been in the hospital since your No No last visit? Has dressing in place as prescribed Yes No Has compression in place as prescribed N/A N/A Has offloadiing in place as prescribed N/A N/A Experienced any changes in pain level or No No management Left Footwear Regular Shoe Custom Shoe Right Footwear Regular Shoe Custom Shoe Pain Scale: 0-10 Numeric Is Patient Pain Free? Yes Yes WC - Nurse 1 - General Ulcer Measurement Start: 12/29/22 08:13 Freq: Status: Active Protocol: Activity Type Activity Date Activity User E-sign Co-sign Detail Recorded Client Recorded Date Recorded By Document 12/29/22 08:14 BM[facility] Desktop 12/29/22 08:15 BMF Document 01/19/23 08:17 JF Desktop 01/19/23 08:18 JF 12/29/22 01/19/23 08:14 08:17 Wound Center Nurse 1 #5- R ischium -Combined with other wound No No -Current Size (cm) - Length 5.6 4.8 -Current Size (cm) - Width 3.5 4.4 -Current Size (cm) - Depth 3.1 4 -Total Square Cm 19.60 21.12 -Photo Taken No No -Epithelialization None Present None Present -Tunneling Yes Yes -Tunneling Position (O'clock) 2 12 -Tunneling Distance (cm) 5.5 9.4 -Undermining/Tunneling No No -Circular Undermining No No -Exudate Amt Large Large -Exudate Type Serosanguineous Serosanguineous -Wound Margin Distinct, Distinct, Outline Outline Attached Attached -Granulation Amt Large (67-100%) Large (67-100%) -Granulation Quality Red Red -Slough/Fibrin No Yes -Necrosis Amt None Present (0 Small (1-33%) %) -Necrotic Tissue Type Adherent Slough -Structure Exposed Bone -Texture (Michelle-wound Skin Appearance) Assessed, Assessed Scarring -Moisture (Michelle-wound Skin Appearance) Assessed Assessed -Color (Michelle-wound Skin Appearance) Assessed Assessed -Temperature (Michelle-wound Skin No Abnormality No Abnormality Appearance) (Pt Warm) (Pt Warm) -Tenderness on Palpation (Michelle-wound No No Skin Appearance) -Ulcer Cleansing Soap and Water Soap and Water -Foul Odor after Cleansing No No -Anesthetic Used 4% Lidocaine 4% Lidocaine Solution Solution DILCIA - Nurse 2 - General Ulcer CM Notes Start: 12/29/22 08:13 Freq: Status: Active Protocol: Activity Type Activity Date Activity User E-sign Co-sign Detail Recorded Client Recorded Date Recorded By Document 12/29/22 08:57 Laptop 12/29/22 09:02 Document 01/19/23 08:49 Desktop 01/19/23 08:53 12/29/22 01/19/23 08:57 08:49 Wound Center Nurse 2 #5- R ischium -Time 08:58 08:50 -Correct Patient Yes Yes -Correct Side, Site, Position Yes Yes -Correct Procedure Yes Yes -Procedure Performed Yes Yes -Type of Procedure Debridement Debridement -Clinical Debridement Muscle / Fascia Muscle / Fascia -Tissue Removed Muscle,Fascia Muscle,Fascia -Post Debridement (cm) - Length 6 4.3 -Post Debridement (cm) - Width 4.8 5.5 -Post Debridement (cm) - Depth 2.5 2.5 -Total Square (Post) (cm) 28.8 23.65 -Area of Debridement (cm) - Length 6.0 4.3 -Area of Debridement (cm) - Width 4.8 5.5 -Total Square (Area) (cm) 28.80 23.65 -Tunneling Yes Yes -Tunneling Position (O'clock) 1 12 -Tunneling Distance (cm) 8.0 7.9 -Undermining/Tunneling No No -Circular Undermining No No -Wound/Ulcer Outcome Not Healed Not Healed -Ulcer Cleansing Rinsed/ Rinsed/ Irrigated with Irrigated with Saline Saline -Foul Odor after Cleansing No No -Bioengineered Tissue No No -Bleeding Controlled with Pressure Pressure -Treatment Response Procedure Procedure Tolerated Well Tolerated Well -Offloading No No -Pressure Reduction Wheelchair Wheelchair cushion, cushion Specialty bed -Debridement - Muscle / Fascia, 1st Yes Yes 20sq cm -Debridement, Muscle/Fascia, ea addt'l 1 20sq cm or part thereof Pain Scale: 0-10 Numeric Is Patient Pain Free? Yes Yes DILCIA - Nurse 3 - General Ulcer D/C NN Start: 12/29/22 08:13 Freq: Status: Active Protocol: Activity Type Activity Date Activity User E-sign Co-sign Detail Recorded Client Recorded Date Recorded By Document 12/29/22 09:16 PL Tablet 12/29/22 09:17 PL Document 01/19/23 08:58 BM Desktop 01/19/23 09:00 BMF 12/29/22 01/19/23 09:16 08:58 Wound Care Center Nurse 3 #5- R ischium -Ulcer Cleansing Rinsed/ Rinsed/ Irrigated with Irrigated with Saline Saline -Foul Odor after Cleansing No No -Other Dressing Sue,MÓNICA DAKINS MOIST GAUZE; PER DL LINSEED CAKE TRIMMER -Primary Dressing Covered/Secured with Dry Gauze, Secured with Secured with Tape Tape -Other Covering ABD Treatment Response Procedure Tolerated Well Pain Scale: 0-10 Numeric Is Patient Pain Free? Yes Yes WC - Visit Discharge Discharge Condition Stable Stable Ambulatory Status Wheelchair Wheelchair Transportation [facility] Facility Type Home Health Assessment/Plan Assessment/Plan (1) Right ischial pressure sore, stage 4: CODE(S): L89.314 - Pressure ulcer of right buttock, stage 4 (2) Osteomyelitis of right side of pelvis: CODE(S): M86.9 - Osteomyelitis, unspecified (3) Smoker: CODE(S): F17.200 - Nicotine dependence, unspecified, uncomplicated (4) Wheelchair dependent: CODE(S): Z99.3 - Dependence on wheelchair PLAN: Plan Patient evaluated at the wound center today. Wound care - Stop the wound VAC due to difficulty of keeping a good seal on the wound VAC. It is too high of a risk for infection if he is going hours with an improper seal. The ulcer should be washed with soap and water at the time of the dressing change. Start Dakins 0.25% moistened gauze covered by ABD/super absorber daily and as needed. They have home health to help assist with his dressing changes. Operative tissue cultures positive for MSSA and Cutibacterium acnes. Bone cultures positive for MSSA and Corynebacterium striatum. He completed Augmentin. He was seen in the ED on 05/02/22 because of a couple falls he experienced since his surgery. CT of his pelvis showed some bony disruption at the level of the inferior pubic ramus suggests a mild osteomyelitis. Prealbumin 13.4 on 04/29/22. Anticipate increased metabolic demands from the infection. Encourage nutritional supplementation with protein to help the healing process. A wound culture was obtained on 07/14/22, which was positive for Staphylococcus aureus and was treated with Augmentin. Wound culture obtained 11/10/22 which was positive for MSSA and he completed the Augmentin. He had a colonscopy by Dr. Romero on 06/18/22. Patient has decided he will have acolostomy, which was placed 11/21/22. Follow up 3 weeks so it will give him time to heal after her colostomy. Call or come in sooner if needed. 01/23/23 1604 <Electronically signed by Kemi Rubio NP [employer]> Cosigner Signature (if applicable): CC: ~ Signed [facility] Work Phone: [phone]) 735-283910-05-2023 Progress note Author Kemi [facility] December 31, 2022 10:35pm Note Date/Time December 29, 2022 9: 47am [facility] [address] [place] [address] Progress Note - Wound Care 12/29/22 0947 MR#: [id number] Acct: [id number] Name: JORGE COVINGTON Rep #:[id number] : 1955 67 From: Kemi santiago NP [employer] PCP: Dr. Nathanael Cardona MD Status:RE G RCR Location: History of Present Illness Date of Service: 12/29/22 Chief Complaint: Right ischial pressure sore, Stage IV. History of Wound: This is a 67-year-old white male who presented to the wound healing center with complaints of pressure ulcer to right buttock area with extension to the right ischial bone. This started in October,. Patient's was treating with OTC creams and keeping area clean. The ulcer starting increasing in size and went to the Emergency Department on 02/08/22. CT showed subcutaneous and deep soft tissue involvement and possible early abscess formation. The bone was not addressed. He had a wound culture on 02/28/22. It was positive for E. coli, Staphylococcus aureus, and Clostridium perfringens. He was treated with Augmentin. The patient has very limited mobility as a result of a prior spine injury/surgery. He utilizes a wheelchair at all times. He has not been using his billy lift at home to transfer but has been using a board to slide himself from his bed to chair at home. He sits in his wheelchair almost all day, not really able to change positions. They finally obtained a low air loss overlay totheir regular mattress at home. A roho cushion was ordered for his wheelchair. Patient is a smoker. Surgery 04/28/22 - Excision right ischial pressure sore, Stage IV, with partial ostectomy for osteomyelitis. Size of wound 8 x 7 x 4.5 cm. Operative tissue cultures positive for MSSA and Cutibacterium acnes. Bone cultures positive for MSSA and Corynebacterium striatum. He is being treated with Augmentin. He had a diverting colostomy placed on 11/21/[address] Romero. Wound culture from 07/14/22 positive for Staphylococcus aureus and he was treatedwith Augmentin. Wound culture obtained 11/10/22 which was positive for Staphylococcus aureus and he was treated with Augmentin. Prealbumin 13.4 on 04/29/22. He was seen in the ED on 05/02/22 because of a couple falls he experienced since his surgery. CT of his pelvis showed some bony disruption at the level of the inferior pubic ramus suggests a mild osteomyelitis. Anticipate increased metabolic demands from the infection. Encourage nutritional supplementation with protein to help the healing process. Today he denies fever. His appetite is ok. Progress of Wound: The ulcer is into the muscle with small area of bone palpable that is not covered. Ulcer is stable. He is having pain with palpation of the ulcer, especially around the bone area. He had his colostomy placed at the end of October. Objective Data Objective Data Vital Signs: Vital Signs Temp Pulse Resp BP O2 Del Method 96.9 F L 88 16 142/89 H Room Air 12/29/22 08:14 12/29/22 08:14 12/29/22 08:14 12/29/22 08:14 12/29/22 08:14 Oxygen Delivery Method Room Air Weight: 220 lb Body Mass Index (BMI) 35.5 Charges/Coding Procedures Integumentary 111xxx-113xx: 88003 Lillian musc/fascia 20 sq cm/< Add On Codes: 92555 Lillian musc/fascia add-on Debridement Note Debridement Note Wound debrided: Ischial ulcer Laterality: Right Wound Grade/Stage: Stage IV Type of Debridement: Excisional debridement Anesthesia Used: 5% Lidocaine Gel Depth: Down to and including healthy tissue, in the subcutaneous layer and to muscle Percentage of wound debrided: 100 Instrument Used: 7mm curette Tissue Removed: Devitalized tissue and slough into the muscle Severity: Fat Layer Exposed Amount of bleeding with debridement: Mild Bleeding Controlled with: Pressure and Compression and gauze Patient tolerated procedure: Patient tolerated procedure well Debridement Free Text: Ulcer into the muscle, bone is palpable but not debrided. Post-Debridement Measurements and Additional Note: Post-Debridement Measurements/Treatment - Nurse 1 - General Ulcer Assessment Start: 12/29/22 08:13 Freq: Status: Active Protocol: KIRA Activity Type Activity Date Activity User E-sign Co-sign Detail Recorded Client Recorded Date Recorded By Document 12/29/22 08:14 [facility] Desktop 12/29/22 08:15 [facility] 12/29/22 08:14 - Today's Visit Information Type of service Follow-up Visit (Physician/HEAD BAKER ) Arrival Mode Wheelchair Transfer Assistance Billy Lift Transfer Assist (Other) 2 Patient Identification Verified (Name & Yes ) Patient Requires Transmission-Based No Precautions Height and Weight Body Mass Index (BMI) 35.5 BMI Classification Obese Vital Signs Temperature (97.8 F-99.1 F) 96.9 F L Temperature Source Temporal Pulse Rate (60-100) 88 Pulse Location Monitor Respiratory Rate (12-18) 16 Respiratory rate source Observation Oxygen Delivery Method Room Air Blood Pressure (90/60-120/80) 142/89 H Blood Pressure Mean (mm Hg) 106 Source Monitor Position Sitting Blood Pressure Location Left Forearm History Since Last Visit- (Skip if this is Patient's initial visit) Have you changed medications since your No last visit? Any new allergies or adverse reactions No Had a fall/change in ADL's that may No increase risk of falls Signs or symptoms of abuse and/or No neglect since last visit Have you been in the hospital since your No last visit? Has dressing in place as prescribed Yes Has compression in place as prescribed N/A Has offloadiing in place as prescribed N/A Experienced any changes in pain level or No management Left Footwear Regular Shoe Right Footwear Regular Shoe Pain Scale: 0-10 Numeric Is Patient Pain Free? Yes DILCIA - Nurse 1 - General Ulcer Measurement Start: 12/29/22 08:13 Freq: Status: Active Protocol: Activity Type Activity Date Activity User E-sign Co-sign Detail Recorded Client Recorded Date Recorded By Document 12/29/22 08:14 BM Desktop 12/29/22 08:15 BM 12/29/22 08:14 Wound Center Nurse 1 #5- R ischium -Combined with other wound No -Current Size (cm) - Length 5.6 -Current Size (cm) - Width 3.5 -Current Size (cm) - Depth 3.1 -Total Square Cm 19.60 -Photo Taken No -Epithelialization None Present -Tunneling Yes -Tunneling Position (O'clock) 2 -Tunneling Distance (cm) 5.5 -Undermining/Tunneling No -Circular Undermining No -Exudate Amt Large -Exudate Type Serosanguineous -Wound Margin Distinct, Outline Attached -Granulation Amt Large (67-100%) -Granulation Quality Red -Slough/Fibrin No -Necrosis Amt None Present (0 %) -Texture (Michelle-wound Skin Appearance) Assessed, Scarring -Moisture (Michelle-wound Skin Appearance) Assessed -Color (Michelle-wound Skin Appearance) Assessed -Temperature (Michelle-wound Skin No Abnormality Appearance) (Pt Warm) -Tenderness on Palpation (Michelle-wound No Skin Appearance) -Ulcer Cleansing Soap and Water -Foul Odor after Cleansing No -Anesthetic Used 4% Lidocaine Solution DILCIA - Nurse 2 - General Ulcer CM Notes Start: 12/29/22 08:13 Freq: Status: Active Protocol: Activity Type Activity Date Activity User E-sign Co-sign Detail Recorded Client Recorded Date Recorded By Document 12/29/22 08:57 Laptop 12/29/22 09:02 12/29/22 08:57 Wound Center Nurse 2 -Time 08:58 -Correct Patient Yes -Correct Side, Site, Position Yes -Correct Procedure Yes -Procedure Performed Yes -Type of Procedure Debridement -Clinical Debridement Muscle / Fascia -Tissue Removed Muscle,Fascia -Post Debridement (cm) - Length 6 -Post Debridement (cm) - Width 4.8 -Post Debridement (cm) - Depth 2.5 -Total Square (Post) (cm) 28.8 -Area of Debridement (cm) - Length 6.0 -Area of Debridement (cm) - Width 4.8 -Total Square (Area) (cm) 28.80 -Tunneling Yes -Tunneling Position (O'clock) 1 -Tunneling Distance (cm) 8.0 -Undermining/Tunneling No -Circular Undermining No -Wound/Ulcer Outcome Not Healed -Ulcer Cleansing Rinsed/ Irrigated with Saline -Foul Odor after Cleansing No -Bioengineered Tissue No -Bleeding Controlled with Pressure -Treatment Response Procedure Tolerated Well -Offloading No -Pressure Reduction Wheelchair cushion, Specialty bed -Debridement - Muscle / Fascia, 1st Yes 20sq cm -Debridement, Muscle/Fascia, ea addt'l 1 20sq cm or part thereof Pain Scale: 0-10 Numeric Is Patient Pain Free? Yes - Nurse 3 - General Ulcer D/C NN Start: 12/29/22 08:13 Freq: Status: Active Protocol: Activity Type Activity Date Activity User E-sign Co-sign Detail Recorded Client Recorded Date Recorded By Document 12/29/22 09:16 PL Tablet 12/29/22 09:17 PL 12/29/22 09:16 Wound Care Center Nurse 3 #5- R ischium -Ulcer Cleansing Rinsed/ Irrigated with Saline -Foul Odor after Cleansing No -Other Dressing Sue,ABD -Primary Dressing Covered/Secured with Dry Gauze, Secured with Tape Pain Scale: 0-10 Numeric Is Patient Pain Free? Yes - Visit Discharge Discharge Condition Stable Ambulatory Status Wheelchair Assessment/Plan Assessment/Plan (1) Right ischial pressure sore, stage 4: CODE(S): L89.314 - Pressure ulcer of right buttock, stage 4 (2) Osteomyelitis of right side of pelvis: CODE(S): M86.9 - Osteomyelitis, unspecified (3) Smoker: CODE(S): F17.200 - Nicotine dependence, unspecified, uncomplicated (4) Wheelchair dependent: CODE(S): Z99.3 - Dependence on wheelchair PLAN: Plan Patient evaluated at the wound center today. Wound care - Will start the wound VAC at 150 mmHg. White foam into the tunnel. Dressing to be changed three times per week. The ulcer should be washed with soap and water at the time of the dressing change. Until the wound VAC is approved continue Dakins 0.25% moistened gauze covered by ABD/super absorber daily and as needed. They have home health to help assist with his dressing changes. Operative tissue cultures positive for MSSA and Cutibacterium acnes. Bone cultures positive for MSSA and Corynebacterium striatum. He completed Augmentin. He was seen in the ED on 05/02/22 because of a couple falls he experienced since his surgery. CT of his pelvis showed some bony disruption at the level of the inferior pubic ramus suggests a mild osteomyelitis. Prealbumin 13.4 on 04/29/22. Anticipate increased metabolic demands from the infection. Encourage nutritional supplementation with protein to help the healing process. A wound culture was obtained on 07/14/22, which was positive for Staphylococcus aureus and was treated with Augmentin. Wound culture obtained 11/10/22 which was positive for MSSA and he completed the Augmentin. He had a colonscopy by Dr. Romero on 06/18/22. Patient has decided he will have acolostomy, which was placed 11/21/22. Follow up 3 weeks so it will give him time to heal after her colostomy. Call or come in sooner if needed. 12/31/222234 <Electronically signed by Kemi Rubio NP [employer]> Cosigner Signature (if applicable): CC: ~ Signed [facility] Work Phone: [phone] Progress note Author Kemibehzad Rubio [facility] December 12, 2022 12:58pm Note Date/Time December 08, 2022 9:33am [facility] [address] [place] [address] Progress Note - Wound Care 12/08/22 0932 MR#: [id number] Acct: [id number] Name: JORGE COVINGTON Rep #:[id number] : 1955 67 From: Kemi santiago NP [employer] PCP: Dr. Nathanael Cardona MD Status:RE G RCR Location: History of Present Illness Date of Service: 12/08/22 Chief Complaint: Right ischial pressure sore, Stage IV. History of Wound: This is a 67-year-old white male who presented to the wound healing center with complaints of pressure ulcer to right buttock area with extension to the right ischial bone. This started in October,. Patient's was treating with OTC creams and keeping area clean. The ulcer starting increasing in size and went to the Emergency Department on 02/08/22. CT showed subcutaneous and deep soft tissue involvement and possible early abscess formation. The bone was not addressed. He had a wound culture on 02/28/22. It was positive for E. coli, Staphylococcus aureus, and Clostridium perfringens. He was treated with Augmentin. The patient has very limited mobility as a result of a prior spine injury/surgery. He utilizes a wheelchair at all times. He has not been using his billy lift at home to transfer but has been using a board to slide himself from his bed to chair at home. He sits in his wheelchair almost all day, not really able to change positions. They finally obtained a low air loss overlay totheir regular mattress at home. A roho cushion was ordered for his wheelchair. Patient is a smoker. Surgery 04/28/22 - Excision right ischial pressure sore, Stage IV, with partial ostectomy for osteomyelitis. Size of wound 8 x 7 x 4.5 cm. Operative tissue cultures positive for MSSA and Cutibacterium acnes. Bone cultures positive for MSSA and Corynebacterium striatum. He is being treated with Augmentin. He had a diverting colostomy placed on 11/21/[address] Romero. Wound culture from 07/14/22 positive for Staphylococcus aureus and he was treatedwith Augmentin. Wound culture obtained 11/10/22 which was positive for Staphylococcus aureus and he was treated with Augmentin. Prealbumin 13.4 on 04/29/22. He was seen in the ED on 05/02/22 because of a couple falls he experienced since his surgery. CT of his pelvis showed some bony disruption at the level of the inferior pubic ramus suggests a mild osteomyelitis. Anticipate increased metabolic demands from the infection. Encourage nutritional supplementation with protein to help the healing process. Today he denies fever. His appetite is ok. Progress of Wound: The ulcer is into the muscle with small area of bone palpable that is not covered. Ulcer is stable. He is having pain with palpation of the ulcer, especially around the bone area. He had his colostomy placed. He is having some thick, brown mucous still from rectum, will hold off on starting wound vac at this time until the mucous slows down. Objective Data Objective Data Vital Signs: Vital Signs Temp Pulse Resp BP 96.7 F L 80 18 133/67 H 12/08/22 08:52 12/08/22 08:52 12/08/22 08:52 12/08/22 08:52 Weight: 220 lb Body Mass Index (BMI) 35.5 Charges/Coding Procedures Integumentary 111xxx-113xx: 93361 Lillian musc/fascia 20 sq cm/< Add On Codes: 63403 Illlian musc/fascia add-on Debridement Note Debridement Note Wound debrided: Ischial ulcer Laterality: Right Wound Grade/Stage: Stage IV Type of Debridement: Excisional debridement Anesthesia Used: 5% Lidocaine Gel Depth: Down to and including healthy tissue, in the subcutaneous layer and to muscle Percentage of wound debrided: 100 Instrument Used: 7mm curette Tissue Removed: Devitalized tissue and slough into the muscle Severity: Fat Layer Exposed Amount of bleeding with debridement: Mild Bleeding Controlled with: Pressure and Compression and gauze Patient tolerated procedure: Patient tolerated procedure well Debridement Free Text: Ulcer into the muscle, bone is palpable. Post-Debridement Measurements and Additional Note: Post-Debridement Measurements/Treatment - Nurse 1 - General Ulcer Assessment Start: 12/08/22 08:52 Freq: Status: Active Protocol: KIRA Activity Type Activity Date Activity User E-sign Co-sign Detail Recorded Client Recorded Date Recorded By Document 12/08/22 08:52 [id number] 12/08/22 08:54 12/08/22 08:52 - Today's Visit Information Type of service Follow-up Visit (Physician/HEAD BAKER ) Arrival Mode Ambulatory Transfer Assistance None Patient Identification Verified (Name & Yes ) Patient Requires Transmission-Based No Precautions Height and Weight Body Mass Index (BMI) 35.5 BMI Classification Obese Vital Signs Temperature (97.8 F-99.1 F) 96.7 F L Temperature Source Temporal Pulse Rate (60-100) 80 Pulse Location Monitor Respiratory Rate (12-18) 18 Respiratory rate source Observation Blood Pressure (90/60-120/80) 133/67 H Blood Pressure Mean (mm Hg) 89 Source Monitor Position Semi-Fowlers Blood Pressure Location Left Arm History Since Last Visit- (Skip if this is Patient's initial visit) Have you changed medications since your No last visit? Any new allergies or adverse reactions No Had a fall/change in ADL's that may No increase risk of falls Signs or symptoms of abuse and/or No neglect since last visit Have you been in the hospital since your No last visit? Has dressing in place as prescribed Yes Has compression in place as prescribed No Has offloadiing in place as prescribed No Experienced any changes in pain level or No management Pain Scale: 0-10 Numeric Is Patient Pain Free? Yes DILCIA - Nurse 1 - General Ulcer Measurement Start: 12/08/22 08:52 Freq: Status: Active Protocol: Activity Type Activity Date Activity User E-sign Co-sign Detail Recorded Client Recorded Date Recorded By Document 12/08/22 08:52 RB [id number] 12/08/22 08:54 RB 12/08/22 08:52 Wound Center Nurse 1 #5- R ischium -Combined with other wound No -Current Size (cm) - Length 5.5 -Current Size (cm) - Width 5 -Current Size (cm) - Depth 4.8 -Total Square Cm 27.5 -Tunneling No -Undermining/Tunneling Yes -Undermining/Tunneling Starts (O'clock 12 ) -Undermining/Tunneling Ends (O'clock) 2 -Maximum Distance (cm) 7 -Circular Undermining No -Exudate Amt Large -Exudate Type Serosanguineous -Wound Margin Distinct, Outline Attached -Granulation Amt Medium (34-66%) -Granulation Quality [place] -Slough/Fibrin Yes -Necrosis Amt Medium (34-66%) -Necrotic Tissue Type Adherent Slough -Structure Exposed Bone -Texture (Michelle-wound Skin Appearance) Assessed -Moisture (Michelle-wound Skin Appearance) Maceration -Color (Michelle-wound Skin Appearance) Assessed -Temperature (Michelle-wound Skin No Abnormality Appearance) (Pt Warm) -Tenderness on Palpation (Michelle-wound No Skin Appearance) -Ulcer Cleansing Wound Cleanser -Foul Odor after Cleansing No -Anesthetic Used 4% Lidocaine Solution DILCIA - Nurse 2 - General Ulcer CM Notes Start: 12/08/22 08:52 Freq: Status: Active Protocol: Activity Type Activity Date Activity User E-sign Co-sign Detail Recorded Client Recorded Date Recorded By Document 12/08/22 09:09 [id number] 12/08/22 09:11 12/08/22 09:09 Wound Center Nurse 2 -Time 09:10 -Correct Patient Yes -Correct Side, Site, Position Yes -Correct Procedure Yes -Procedure Performed Yes -Type of Procedure Debridement -Clinical Debridement Muscle / Fascia -Tissue Removed Muscle -Post Debridement (cm) - Length 5.7 -Post Debridement (cm) - Width 5.5 -Post Debridement (cm) - Depth 3.3 -Total Square (Post) (cm) 31.35 -Area of Debridement (cm) - Length 5.7 -Area of Debridement (cm) - Width 5.5 -Total Square (Area) (cm) 31.35 -Tunneling Yes -Tunneling Position (O'clock) 1 -Tunneling Distance (cm) 8.2 -Circular Undermining No -Wound/Ulcer Outcome Not Healed -Ulcer Cleansing Rinsed/ Irrigated with Saline -Foul Odor after Cleansing No -Bioengineered Tissue No -Bleeding Controlled with Pressure -Treatment Response Procedure Tolerated Well -Offloading No -Pressure Reduction Wheelchair cushion -Debridement - Muscle / Fascia, 1st Yes 20sq cm -Debridement, Muscle/Fascia, ea addt'l 1 20sq cm or part thereof Pain Scale: 0-10 Numeric Is Patient Pain Free? Yes - Nurse 3 - General Ulcer D/C NN Start: 12/08/22 08:52 Freq: Status: Active Protocol: Activity Type Activity Date Activity User E-sign Co-sign Detail Recorded Client Recorded Date Recorded By Document 12/08/22 09:16 [id number] 12/08/22 09:17 KW Document 12/08/22 09:27 DL [id number] 12/08/22 09:28 DL 12/08/22 12/08/22 09:16 09:27 Wound Care Center Nurse 3 #5- R ischium -Ulcer Cleansing Rinsed/ Not Cleansed Irrigated with Saline -Foul Odor after Cleansing No -Other Dressing dakins -Primary Dressing Covered/Secured with Dry Gauze, Dry Gauze, Secured with Secured with Tape Tape Treatment Response Procedure Tolerated Well Pain Scale: 0-10 Numeric Is Patient Pain Free? Yes Yes - Visit Discharge Discharge Condition Stable Stable Ambulatory Status Wheelchair Wheelchair Transportation Private Auto Medication Reconcilliation completed & No provided to patient/care provider Clinical Summary of Care Provided Yes Facility Type Home Health Orders Sent Yes Assessment/Plan Assessment/Plan (1) Right ischial pressure sore, stage 4: CODE(S): L89.314 - Pressure ulcer of right buttock, stage 4 (2) Osteomyelitis of right side of pelvis: CODE(S): M86.9 - Osteomyelitis, unspecified (3) Smoker: CODE(S): F17.200 - Nicotine dependence, unspecified, uncomplicated (4) Wheelchair dependent: CODE(S): Z99.3 - Dependence on wheelchair PLAN: Plan Patient evaluated at the wound center today. Wound care - Dakins 0.25% moistened gauze covered by ABD/super absorber daily and as needed. They have home health to help assist with his dressing changes. Will consider wound VAC at his next visit as long as the mucous from his rectum decreases. Operative tissue cultures positive for MSSA and Cutibacterium acnes. Bone cultures positive for MSSA and Corynebacterium striatum. He completed Augmentin. He was seen in the ED on 05/02/22 because of a couple falls he experienced since his surgery. CT of his pelvis showed some bony disruption at the level of the inferior pubic ramus suggests a mild osteomyelitis. Prealbumin 13.4 on 04/29/22. Anticipate increased metabolic demands from the infection. Encourage nutritional supplementation with protein to help the healing process. A wound culture was obtained on 07/14/22, which was positive for Staphylococcus aureus and was treated with Augmentin. Wound culture obtained 11/10/22 which was positive for MSSA and he is on Augmentin for that. He had a colonscopy by Dr. Romero on 06/18/22. Patient has decided he will have acolostomy, which was placed 11/21/22. Follow up 3 weeks so it will give him time to heal after her colostomy. Call or come in sooner if needed. 12/12/22 1886 <Electronically signed by Kemi Rubio NP [employer]> Cosigner Signature (if applicable): CC: ~ Signed [facility] Work Phone: [phone] Progress note Author Kari Romero [facility] November 24, 2022 8:35am Note Date/Time November 24, 2022 8: 36am [facility] Medical Records Department [address] [place] [address] Progress Note - Surgery 11/24/2232 MR#: [id number] Acct: [id number] Name: JORGE COVINGTON Rep #:[id number] : 1955 67 From: Kari Walker PCP: Dr. Nathanael Cardona MD Status:AD M IN [place] [facility] [place] Subjective Subjective Patient seen and examined during AM rounds. He is found resting in bed. It wasreported the patient showed no interest in learning how to care for his ostomy over the weekend, however, he states today he is willing to learn how to empty it. Plans are in place to review care with patient's when she arrives to the hospital this afternoon. Wound and ostomy nursing report viable appearance of patient's wound. Objective Data Objective Data Vital Signs: Vital Signs Temp Pulse Resp BP Pulse Ox O2 Del Method 97.6 F L 50 L 18 140/64 H 98 Room Air 11/24/22 03:56 11/24/22 03:56 11/24/22 03:56 11/24/22 03:56 11/24/22 03:56 11/24/22 04:30 Oxygen Delivery Method Room Air Weight: 149 lb 14.629 oz Body Mass Index (BMI) 24.2 Intake & Output: Intake and Output for Last 24 Hours 11/22/22 11/23/22 11/24/22 23:59 23:59 23:59 Intake Total 2953.33 / 2953.33 3516.66 / 3516.66 Output Total 4160 / 4160 2925 / 2925 600 / 600 Balance -1206.67 / -1206.67 591.66 / 591.66 -600 / -600 Lab / Micro Data 10/17/22 07:32 10/17/22 07:32 Physical Exam Const oriented x3 and no apparent distress Resp normal respiratory effort GI GI Narrative: Nondistended, operative dressings in tact?beneath these the Steri-Strips remain and there is no surrounding erythema or drainage from the wounds. Patient's left lower quadrant ostomy is pink and viable to mucosa. There is some gas and thin fecal output to the appliance. Patient denies any tenderness with palpation. Assessment & Plan Assessment/Plan (1) S/P colostomy: PLAN: This is a 67-year-old male postoperative day 3 from laparoscopic divertingcolostomy. He has done well clinically. We are pending teaching on colostomy management with patient's spouse this afternoon. A prescription has been signedfor his necessary ostomy supplies. Therefore, barring any new concerns Mr. Covington should be eligible for discharge to home following the teaching session this afternoon. Charges/Coding Visit Charges Inpatient E&M: 27793 Subs Hosp L2 11/24/22 0835 <Electronically signed by Kari Romero MD> Cosigner Signature (if applicable): CC: ~ Signed [facility] Work Phone: 1(785) 795-196608-27-2023 Progress note Author Nakita Arroyo [facility] November 23, 2022 10:10am Note Date/Time November 23, 2022 8: 37am [facility] Medical Records Department [address] [place] [address] Progress Note - Surgery 11/23/2237 MR#: [id number] Acct: [id number] Name: JORGE COVINGTON Rep #:[id number] : 1955 67 From: Nakita Arroyo MD PCP: Dr. Nathanael Cardona MD Status:AD M IN Location: [place] [address] Subjective Subjective Patient tolerating diet and having gas and stool in colostomy Objective Data Objective Data Vital Signs: Vital Signs Temp Pulse Resp BP Pulse Ox O2 Del Method 97.9 F 63 16 128/80 H 94 Room Air 11/23/22 08:03 11/23/22 08:03 11/23/22 08:03 11/23/22 08:03 11/23/22 08:03 11/23/22 08:03 Oxygen Delivery Method Room Air Weight: 149 lb 14.629 oz Body Mass Index (BMI) 24.2 Intake & Output: Intake and Output for Last 24 Hours 11/21/22 11/22/22 11/23/22 23:59 23:59 23:59 Intake Total 1937.08 / 1937.08 2953.33 / 2953.33 1000 / 1000 Output Total 2465 / 2465 4160 / 4160 900 / 900 Balance -527.92 / -527.92 -1206.67 / -1206.67 100 / 100 Lab / Micro Data 10/17/22 07:32 10/17/22 07:32 Physical Exam Const oriented x3 and no apparent distress Resp normal respiratory effort Cardio regular rate GI soft to palpation GI Narrative: Incisions dressed clean dry and intact, stoma pink with small mount of light brown stool/flatus. Assessment & Plan Assessment/Plan (1) S/P colostomy: (2) Nonhealing ulcer of right lower leg with fat layer exposed: PLAN: Plan We will advance to regular diet. Patient has more stool and further colostomy teaching as patient does not appear to be that interested per nursing on learning and he is not doing it himself---We will plan to discharge home. Continue home meds. Nakita Arroyo M.D. Pager: [phone] [facility] [address] [place] [address], [facility], [address] [place] [address] Office: [phone] 11/23/22 0991 <Electronically signed by Nakita Arroyo MD> Cosigner Signature (if applicable): CC: ~ Signed ADDENDUM by Dr. Nakita Arroyo MD on 11/23/22 at 1010 Addendum benson was in for i/o-- will d/c 11/23/22 1010<Electronically signed by Nakita Arroyo MD> Cosigner Signature (if applicable): cc: ~* Signed [facility] Work Phone: 1(641) 803-637708-26-2023 Progress note Author Nakita Arroyo [facility] November 22, 2022 8:01am Note Date/Time November 22, 2022 8: 01am [facility] Medical Records Department [address] [place] [address] Progress Note - Surgery 11/22/22 07 MR#: [id number] Acct: [id number] Name: JORGE COVINGTON Rep #:[id number] : 1955 67 From: Nakita Arroyo MD PCP: Dr. Nathanael Gunning, MD Status:AD M IN Location: MS3 AC060-8 Subjective Subjective Patient tolerating clears having brown liquid out of the stoma small mount. Objective Data Objective Data Vital Signs: Vital Signs Temp Pulse Resp BP Pulse Ox O2 Del Method 98.2 F 64 18 143/67 H 96 Room Air 11/22/22 03:43 11/22/22 03:43 11/22/22 03:43 11/22/22 03:43 11/22/22 03:43 11/22/22 03:43 Oxygen Delivery Method Room Air Weight: 149 lb 14.629 oz Body Mass Index (BMI) 24.2 Intake & Output: Intake and Output for Last 24 Hours 11/20/22 11/21/22 11/22/22 23:59 23:59 23:59 Intake Total 1937.08 / 1937.08 Output Total 2465 / 2465 440 / 440 Balance -527.92 / -527.92 -440 / -440 Lab / Micro Data 10/17/22 07:32 10/17/22 07:32 Physical Exam Const oriented x3 and no apparent distress Resp normal respiratory effort Cardio regular rate GI soft to palpation GI Narrative: Incisions dressed clean dry and intact, stoma pink with small mount of light brown stool. Assessment & Plan Assessment/Plan (1) S/P colostomy: (2) Nonhealing ulcer of right lower leg with fat layer exposed: PLAN: Plan We will advance to regular diet. Patient has more stool we will plan to discharge home. We will restart patient's home meds. Nakita Arroyo M.D. Pager: [phone] [facility] [address] [place] [address], [address] [place] [address] Office: [phone] 11/22/22 0801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 of Debridement: Excisional debridement Anesthesia Used: 5% Lidocaine Gel Depth: Down to and including healthy tissue, in the subcutaneous layer and to muscle Percentage of wound debrided: 100 Instrument Used: 7mm curette Tissue Removed: Devitalized tissue and slough into the muscle Severity: Fat Layer Exposed Amount of bleeding with debridement: Mild Bleeding Controlled with: Pressure and Compression and gauze Patient tolerated procedure: Patient tolerated procedure well Debridement Free Text: Ulcer into the muscle, bone is palpable. Post-Debridement Measurements and Additional Note: Post-Debridement Measurements/Treatment - Nurse 1 - General Ulcer Assessment Start: 10/06/22 08:38 Freq: Status: Active Protocol: .[place] Activity Type Activity Date Activity User E-sign Co-sign Detail Recorded Client Recorded Date Recorded By Document 10/06/22 08:38 [facility] [id number] 10/06/22 08:48 [facility] Document 10/20/22 08:28 [facility] [id number] 10/20/22 08:32 BMF 10/06/22 10/20/22 08:38 08:28 - Today's Visit Information Type of service Follow-up Visit Follow-up Visit (Physician/HEAD BAKER (Physician/HEAD BAKER ) ) Arrival Mode Wheelchair Wheelchair Transfer Assistance Billy Lift Billy Lift Transfer Assist (Other) 2 Patient Identification Verified (Name & Yes Yes ) Patient Requires Transmission-Based No Precautions Height and Weight Body Mass Index (BMI) 35.5 35.5 BMI Classification Obese Obese Vital Signs Temperature (97.8 F-99.1 F) 97.4 F L 96.9 F L Temperature Source Temporal Temporal Pulse Rate (60-100) 83 85 Pulse Location Monitor Monitor Respiratory Rate (12-18) 16 16 Respiratory rate source Observation Observation Oxygen Delivery Method Room Air Room Air Blood Pressure (90/60-120/80) 125/74 H 100/60 Blood Pressure Mean (mm Hg) 91 73 Source Monitor Monitor Position Sitting Sitting Blood Pressure Location Right Arm Left Arm History Since Last Visit- (Skip if this is Patient's initial visit) Have you changed medications since your No No last visit? Any new allergies or adverse reactions No No Had a fall/change in ADL's that may No No increase risk of falls Signs or symptoms of abuse and/or No No neglect since last visit Have you been in the hospital since your No No last visit? Has dressing in place as prescribed Yes Yes Has compression in place as prescribed N/A N/A Has offloadiing in place as prescribed N/A N/A Experienced any changes in pain level or No No management Left Footwear Regular Shoe Regular Shoe Right Footwear Regular Shoe Regular Shoe Pain Scale: 0-10 Numeric Is Patient Pain Free? Yes Yes WC - Nurse 1 - General Ulcer Measurement Start: 10/06/22 08:38 Freq: Status: Active Protocol: Activity Type Activity Date Activity User E-sign Co-sign Detail Recorded Client Recorded Date Recorded By Document 10/06/22 08:38 [facility] [id number] 10/06/22 08:48 [facility] Document 10/20/22 08:28 [facility] [id number] 10/20/22 08:32 BMF 10/06/22 10/20/22 08:38 08:28 Wound Center Nurse 1 #5- R ischium -Combined with other wound No -Current Size (cm) - Length 5.4 6.4 -Current Size (cm) - Width 4 4.1 -Current Size (cm) - Depth 3.3 4.7 -Total Square Cm 21.6 26.24 -Date of Last Picture (Recall this 10/20/22 field) -Photo Taken Yes -Epithelialization None Present -Tunneling No No -Undermining/Tunneling Yes No -Undermining/Tunneling Starts (O'clock 12 ) -Undermining/Tunneling Ends (O'clock) 1 -Maximum Distance (cm) 6.5 -Circular Undermining No No -Exudate Amt Large Small -Exudate Type Serosanguineous Serosanguineous -Wound Margin Distinct, Distinct, Outline Outline Attached Attached -Granulation Amt Large (67-100%) Large (67-100%) -Granulation Quality Red Red -Slough/Fibrin No -Necrosis Amt None Present (0 Small (1-33%) %) -Texture (Michelle-wound Skin Appearance) Assessed, Assessed Scarring -Moisture (Michelle-wound Skin Appearance) Assessed Assessed -Color (Michelle-wound Skin Appearance) Assessed Assessed -Temperature (Michelle-wound Skin No Abnormality No Abnormality Appearance) (Pt Warm) (Pt Warm) -Tenderness on Palpation (Michelle-wound No Skin Appearance) -Ulcer Cleansing Soap and Water Soap and Water -Foul Odor after Cleansing No No -Anesthetic Used 4% Lidocaine 4% Lidocaine Solution Solution Lower Limb Edema Present NA WC - Nurse 2 - General Ulcer CM Notes Start: 10/06/22 08:38 Freq: Status: Active Protocol: Activity Type Activity Date Activity User E-sign Co-sign Detail Recorded Client Recorded Date Recorded By Document 10/06/22 09:07 ESTER [id number] 10/06/22 09:10 Document 10/20/22 09:02 [id number] 10/20/22 09:05 MW 10/06/22 10/20/22 09:07 09:02 Wound Center Nurse 2 #5- R ischium -Time 09:08 09:02 -Correct Patient Yes Yes -Correct Side, Site, Position Yes Yes -Correct Procedure Yes Yes -Procedure Performed Yes Yes -Type of Procedure Debridement Debridement -Clinical Debridement Muscle / Fascia Muscle / Fascia -Tissue Removed Muscle,Fascia Subcutaneous, Muscle -Post Debridement (cm) - Length 6 6.5 -Post Debridement (cm) - Width 5 6.0 -Post Debridement (cm) - Depth 3 3.8 -Total Square (Post) (cm) 30 39.00 -Area of Debridement (cm) - Length 6 6.5 -Area of Debridement (cm) - Width 5 6.0 -Total Square (Area) (cm) 30 39.00 -Tunneling No Yes -Tunneling Position (O'clock) 12 -Tunneling Distance (cm) 4.8 -Undermining/Tunneling Yes No -Undermining/Tunneling Starts (O'clock 12 ) -Undermining/Tunneling Ends (O'clock) 3 -Maximum Distance (cm) 3.5 -Circular Undermining No No -Wound/Ulcer Outcome Not Healed Not Healed -Ulcer Cleansing Rinsed/ Rinsed/ Irrigated with Irrigated with Saline Saline -Foul Odor after Cleansing No No -Bioengineered Tissue No No -Bleeding Controlled with Pressure Pressure -Treatment Response Procedure Procedure Tolerated Well Tolerated Well -Offloading No No -Pressure Reduction Wheelchair cushion -Debridement - Muscle / Fascia, 1st Yes Yes 20sq cm -Debridement, Muscle/Fascia, ea addt'l 1 1 20sq cm or part thereof Pain Scale: 0-10 Numeric Is Patient Pain Free? Yes Yes - Nurse 3 - General Ulcer D/C NN Start: 10/06/22 08:38 Freq: Status: Active Protocol: Activity Type Activity Date Activity User E-sign Co-sign Detail Recorded Client Recorded Date Recorded By Document 10/06/22 09:13 [id number] 10/06/22 09:14 Document 10/20/22 09:10 [id number] 10/20/22 09:11 10/06/22 10/20/22 09:13 09:10 Wound Care Center Nurse 3 #5- R ischium -Ulcer Cleansing Rinsed/ Rinsed/ Irrigated with Irrigated with Saline Saline -Foul Odor after Cleansing No -Other Dressing 0.25% Dakin's -Primary Dressing Covered/Secured with Dry Gauze & Dry Gauze, Roll Gauze, Secured with Secured with Tape Tape Pain Scale: 0-10 Numeric Is Patient Pain Free? Yes Yes - Visit Discharge Discharge Condition Stable Stable Ambulatory Status Wheelchair Wheelchair Accompanied by billy Medication Reconcilliation completed & Yes No provided to patient/care provider Clinical Summary of Care Provided Yes Yes Assessment/Plan Assessment/Plan (1) Right ischial pressure sore, stage 4: CODE(S): L89.314 - Pressure ulcer of right buttock, stage 4 (2) Osteomyelitis of right side of pelvis: CODE(S): M86.9 - Osteomyelitis, unspecified (3) Smoker: CODE(S): F17.200 - Nicotine dependence, unspecified, uncomplicated (4) Wheelchair dependent: CODE(S): Z99.3 - Dependence on wheelchair PLAN: Plan Patient evaluated at the wound center today. Wound care - Dakins 0.25% moistened gauze covered by ABD/super absorber daily and as needed. They have home health to help assist with his dressing changes. Operative tissue cultures positive for MSSA and Cutibacterium acnes. Bone cultures positive for MSSA and Corynebacterium striatum. He completed Augmentin. He was seen in the ED on 05/02/22 because of a couple falls he experienced since his surgery. CT of his pelvis showed some bony disruption at the level of the inferior pubic ramus suggests a mild osteomyelitis. Prealbumin 13.4 on 04/29/22. Anticipate increased metabolic demands from the infection. Encourage nutritional supplementation with protein to help the healing process. A wound culture was obtained on 07/14/22, which was positive for Staphylococcus aureus and was treated with Augmentin. He had a colonscopy by Dr. Romero on 06/18/22. Patient has decided he will have acolostomy, he said it is scheduled for later in the week. He has home health to assist with wound care. Follow up three weeks. Call or come in sooner if needed. 10/20/22 1026 <Electronically signed by Kemi Rubio NP [employer]> Cosigner Signature (if applicable): CC: ~ Signed [facility] Work Phone: [phone] 735-380807-10-2023 Progress note Author Kemi Rubio [facility] October 06, 2022 2:08pm Note Date/Time October 06, 2022 9:27 am [facility] [address] [place] [address] Progress Note - Wound Care 10/06/22 0925 MR#: [id number] Acct: [id number] Name: JORGE COVINGTON Jeannette Rep #:[id number] 1 : 1955 67 From: Kemi Jaquez ll DAVID [employer]BE [employer]C PCP: Care Physician,No Primary Status :REG RCR Location: History of Present Illness Date of Service: 10/06/22 Chief Complaint: Right ischial pressure sore, Stage IV. History of Wound: This is a 67-year-old white male who presented to the wound healing center with complaints of pressure ulcer to right buttock area with extension to the right ischial bone. This started in October,. Patient's was treating with OTC creams and keeping area clean. The ulcer starting increasing in size and went to the Emergency Department on 02/08/22. CT showed subcutaneous and deep soft tissue involvement and possible early abscess formation. The bone was not addressed. He had a wound culture on 02/28/22. It was positive for E. coli, Staphylococcus aureus, and Clostridium perfringens. He was treated with Augmentin. The patient has very limited mobility as a result of a prior spine injury/surgery. He utilizes a wheelchair at all times. He has not been using his billy lift at home to transfer but has been using a board to slide himself from his bed to chair at home. He sits in his wheelchair almost all day, not really able to change positions. They finally obtained a low air loss overlay totheir regular mattress at home. A roho cushion was ordered for his wheelchair. Patient is a smoker. Surgery 04/28/22 - Excision right ischial pressure sore, Stage IV, with partial ostectomy for osteomyelitis. Size of wound 8 x 7 x 4.5 cm. Operative tissue cultures positive for MSSA and Cutibacterium acnes. Bone cultures positive for MSSA and Corynebacterium striatum. He is being treated with Augmentin. Wound culture from 07/14/22 positive for Staphylococcus aureus and he was treatedwith Augmentin. Prealbumin 13.4 on 04/29/22. He was seen in the ED on 05/02/22 because of a couple falls he experienced since his surgery. CT of his pelvis showed some bony disruption at the level of the inferior pubic ramus suggests a mild osteomyelitis. Anticipate increased metabolic demands from the infection. Encourage nutritional supplementation with protein to help the healing process. Today he denies fever. His appetite is ok. Progress of Wound: Ulcer is beefy pink. The ulcer is into the muscle with small area of bone palpable that is not covered. Ulcer is stable. The patient has decided to have acolostomy placed with Dr. Romero, which is scheduled for the end of September. Objective Data Objective Data Vital Signs: Vital Signs Temp Pulse Resp BP O2 Del Method 97.4 F L 83 16 125/74 H Room Air 10/06/22 08:38 10/06/22 08:38 10/06/22 08:38 10/06/22 08:38 10/06/22 08:38 Oxygen Delivery Method Room Air Weight: 220 lb Body Mass Index (BMI) 35.5 Charges/Coding Procedures Integumentary 111xxx-113xx: 17801 Lillian musc/fascia 20 sq cm/< Add On Codes: 10882 Lillian musc/fascia add-on Debridement Note Debridement Note Wound debrided: Ischial ulcer Laterality: Right Wound Grade/Stage: Stage IV Type of Debridement: Excisional debridement Anesthesia Used: 5% Lidocaine Gel Depth: Down to and including healthy tissue, in the subcutaneous layer and to muscle Percentage of wound debrided: 100 Instrument Used: 7mm curette Tissue Removed: Devitalized tissue and slough into the muscle Severity: Fat Layer Exposed Amount of bleeding with debridement: Mild Bleeding Controlled with: Pressure and Compression and gauze Patient tolerated procedure: Patient tolerated procedure well Debridement Free Text: Ulcer into the muscle, bone is palpable. Post-Debridement Measurements and Additional Note: Post-Debridement Measurements/Treatment - Nurse 1 - General Ulcer Assessment Start: 10/06/22 08:38 Freq: Status: Active Protocol: KIRA Activity Type Activity Date Activity User E-sign Co-sign Detail Recorded Client Recorded Date Recorded By Document 10/06/22 08:38 [facility] [id number] 10/06/22 08:48 [facility] 10/06/22 08:38 - Today's Visit Information Type of service Follow-up Visit (Physician/HEAD BAKER ) Arrival Mode Wheelchair Transfer Assistance Billy Lift Transfer Assist (Other) 2 Patient Identification Verified (Name & Yes ) Patient Requires Transmission-Based No Precautions Height and Weight Body Mass Index (BMI) 35.5 BMI Classification Obese Vital Signs Temperature (97.8 F-99.1 F) 97.4 F L Temperature Source Temporal Pulse Rate (60-100) 83 Pulse Location Monitor Respiratory Rate (12-18) 16 Respiratory rate source Observation Oxygen Delivery Method Room Air Blood Pressure (90/60-120/80) 125/74 H Blood Pressure Mean (mm Hg) 91 Source Monitor Position Sitting Blood Pressure Location Right Arm History Since Last Visit- (Skip if this is Patient's initial visit) Have you changed medications since your No last visit? Any new allergies or adverse reactions No Had a fall/change in ADL's that may No increase risk of falls Signs or symptoms of abuse and/or No neglect since last visit Have you been in the hospital since your No last visit? Has dressing in place as prescribed Yes Has compression in place as prescribed N/A Has offloadiing in place as prescribed N/A Experienced any changes in pain level or No management Left Footwear Regular Shoe Right Footwear Regular Shoe Pain Scale: 0-10 Numeric Is Patient Pain Free? Yes WC - Nurse 1 - General Ulcer Measurement Start: 10/06/22 08:38 Freq: Status: Active Protocol: Activity Type Activity Date Activity User E-sign Co-sign Detail Recorded Client Recorded Date Recorded By Document 10/06/22 08:38 [facility] [id number] 10/06/22 08:48 [facility] 10/06/22 08:38 Wound Center Nurse 1 #5- R ischium -Combined with other wound No -Current Size (cm) - Length 5.4 -Current Size (cm) - Width 4 -Current Size (cm) - Depth 3.3 -Total Square Cm 21.6 -Epithelialization None Present -Tunneling No -Undermining/Tunneling Yes -Undermining/Tunneling Starts (O'clock 12 ) -Undermining/Tunneling Ends (O'clock) 1 -Maximum Distance (cm) 6.5 -Circular Undermining No -Exudate Amt Large -Exudate Type Serosanguineous -Wound Margin Distinct, Outline Attached -Granulation Amt Large (67-100%) -Granulation Quality Red -Slough/Fibrin No -Necrosis Amt None Present (0 %) -Texture (Michelle-wound Skin Appearance) Assessed, Scarring -Moisture (Michelle-wound Skin Appearance) Assessed -Color (Michelle-wound Skin Appearance) Assessed -Temperature (Michelle-wound Skin No Abnormality Appearance) (Pt Warm) -Tenderness on Palpation (Michelle-wound No Skin Appearance) -Ulcer Cleansing Soap and Water -Foul Odor after Cleansing No -Anesthetic Used 4% Lidocaine Solution DILCIA - Nurse 2 - General Ulcer CM Notes Start: 10/06/22 08:38 Freq: Status: Active Protocol: Activity Type Activity Date Activity User E-sign Co-sign Detail Recorded Client Recorded Date Recorded By Document 10/06/22 09:07 ESTER [id number] 10/06/22 09:10 ESTER 10/06/22 09:07 Wound Center Nurse 2 -Time 09:08 -Correct Patient Yes -Correct Side, Site, Position Yes -Correct Procedure Yes -Procedure Performed Yes -Type of Procedure Debridement -Clinical Debridement Muscle / Fascia -Tissue Removed Muscle,Fascia -Post Debridement (cm) - Length 6 -Post Debridement (cm) - Width 5 -Post Debridement (cm) - Depth 3 -Total Square (Post) (cm) 30 -Area of Debridement (cm) - Length 6 -Area of Debridement (cm) - Width 5 -Total Square (Area) (cm) 30 -Tunneling No -Undermining/Tunneling Yes -Undermining/Tunneling Starts (O'clock 12 ) -Undermining/Tunneling Ends (O'clock) 3 -Maximum Distance (cm) 3.5 -Circular Undermining No -Wound/Ulcer Outcome Not Healed -Ulcer Cleansing Rinsed/ Irrigated with Saline -Foul Odor after Cleansing No -Bioengineered Tissue No -Bleeding Controlled with Pressure -Treatment Response Procedure Tolerated Well -Offloading No -Pressure Reduction Wheelchair cushion -Debridement - Muscle / Fascia, 1st Yes 20sq cm -Debridement, Muscle/Fascia, ea addt'l 1 20sq cm or part thereof Pain Scale: 0-10 Numeric Is Patient Pain Free? Yes - Nurse 3 - General Ulcer D/C NN Start: 10/06/22 08:38 Freq: Status: Active Protocol: Activity Type Activity Date Activity User E-sign Co-sign Detail Recorded Client Recorded Date Recorded By Document 10/06/22 09:13 ESTER [id number] 10/06/22 09:14 ESTER 10/06/22 09:13 Wound Care Center Nurse 3 #5- R ischium -Ulcer Cleansing Rinsed/ Irrigated with Saline -Foul Odor after Cleansing No -Other Dressing 0.25% Dakin's -Primary Dressing Covered/Secured with Dry Gauze & Roll Gauze, Secured with Tape Pain Scale: 0-10 Numeric Is Patient Pain Free? Yes WC - Visit Discharge Discharge Condition Stable Ambulatory Status Wheelchair Accompanied by billy Medication Reconcilliation completed & Yes provided to patient/care provider Clinical Summary of Care Provided Yes Assessment/Plan Assessment/Plan (1) Right ischial pressure sore, stage 4: CODE(S): L89.314 - Pressure ulcer of right buttock, stage 4 (2) Osteomyelitis of right side of pelvis: CODE(S): M86.9 - Osteomyelitis, unspecified (3) Smoker: CODE(S): F17.200 - Nicotine dependence, unspecified, uncomplicated (4) Wheelchair dependent: CODE(S): Z99.3 - Dependence on wheelchair PLAN: Plan Patient evaluated at the wound center today. Wound care - Dakins 0.25% moistened gauze covered by ABD/super absorber daily and as needed. They have home health to help assist with his dressing changes. Operative tissue cultures positive for MSSA and Cutibacterium acnes. Bone cultures positive for MSSA and Corynebacterium striatum. He is being treated with Augmentin. He was seen in the ED on 05/02/22 because of a couple falls he experienced since his surgery. CT of his pelvis showed some bony disruption at the level of the inferior pubic ramus suggests a mild osteomyelitis. Prealbumin 13.4 on 04/29/22. Anticipate increased metabolic demands from the infection. Encourage nutritional supplementation with protein to help the healing process. A wound culture was obtained on 07/14/22, which was positive for Staphylococcus aureus and was treated with Augmentin. He had a colonscopy by Dr. Romero on 06/18/22. Patient has decided he will have acolostomy, he said it is scheduled for the end of September. He has home health to assist with wound care. Follow up three weeks. Call or come in sooner if needed. 10/06/22 5090 <Electronically signed by Kemi Rubio NP [employer]> Cosigner Signature (if applicable): CC: ~ Signed [facility] Work Phone: [phone] Progress note Author Kemi Rubio [facility] September 23, 2022 12:51pm Note Date/Time September 15, 2022 9:24 am [facility] [address] [place] [address] Progress Note - Wound Care 09/15/22923 MR#: [id number] Acct: [id number] Name: JORGE COVINGTON Rep #:[id number] 1 : 1955 67 From: Kemi santiago LUBE MAN [employer] PCP: Care Physician,No Primary Status :REG RCR Location: History of Present Illness Date of Service: 09/15/22 Chief Complaint: Right ischial pressure sore, Stage IV. History of Wound: This is a 67-year-old white male who presented to the wound healing center with complaints of pressure ulcer to right buttock area with extension to the right ischial bone. This started in October,. Patient's was treating with OTC creams and keeping area clean. The ulcer starting increasing in size and went to the Emergency Department on 02/08/22. CT showed subcutaneous and deep soft tissue involvement and possible early abscess formation. The bone was not addressed. He had a wound culture on 02/28/22. It was positive for E. coli, Staphylococcus aureus, and Clostridium perfringens. He was treated with Augmentin. The patient has very limited mobility as a result of a prior spine injury/surgery. He utilizes a wheelchair at all times. He has not been using his billy lift at home to transfer but has been using a board to slide himself from his bed to chair at home. He sits in his wheelchair almost all day, not really able to change positions. They finally obtained a low air loss overlay totheir regular mattress at home. A roho cushion was ordered for his wheelchair. Patient is a smoker. Surgery 04/28/22 - Excision right ischial pressure sore, Stage IV, with partial ostectomy for osteomyelitis. Size of wound 8 x 7 x 4.5 cm. Operative tissue cultures positive for MSSA and Cutibacterium acnes. Bone cultures positive for MSSA and Corynebacterium striatum. He is being treated with Augmentin. Wound culture from 07/14/22 positive for Staphylococcus aureus and he was treatedwith Augmentin. Prealbumin 13.4 on 04/29/22. He was seen in the ED on 05/02/22 because of a couple falls he experienced since his surgery. CT of his pelvis showed some bony disruption at the level of the inferior pubic ramus suggests a mild osteomyelitis. Anticipate increased metabolic demands from the infection. Encourage nutritional supplementation with protein to help the healing process. Today he denies fever. His appetite is ok. Progress of Wound: Ulcer is beefy pink. The ulcer is into the muscle with bone palpable. Ulcer is stable. The patient has decided to have a colostomy placed, he has follow up with Dr. Romero, the surgery will be scheduled in October. Objective Data Objective Data Vital Signs: Vital Signs Temp Pulse Resp BP O2 Del Method 96.2 F L 76 16 120/56 L Room Air 09/15/22 08:09 09/15/22 08:09 09/15/22 08:09 09/15/22 08:09 09/15/22 08:09 Oxygen Delivery Method Room Air Weight: 220 lb Body Mass Index (BMI) 35.5 Charges/Coding Procedures Integumentary 111xxx-113xx: 92666 Lillian musc/fascia 20 sq cm/< Add On Codes: 98172 Lillian musc/fascia add-on Debridement Note Debridement Note Wound debrided: Ischial ulcer Laterality: Right Wound Grade/Stage: Stage IV Type of Debridement: Excisional debridement Anesthesia Used: 5% Lidocaine Gel Depth: Down to and including healthy tissue, in the subcutaneous layer and to muscle Percentage of wound debrided: 100 Instrument Used: 7mm curette Tissue Removed: Devitalized tissue and slough into the muscle Severity: Fat Layer Exposed Amount of bleeding with debridement: Mild Bleeding Controlled with: Pressure and Compression and gauze Patient tolerated procedure: Patient tolerated procedure well Debridement Free Text: Ulcer into the muscle, bone is palpable today. Post-Debridement Measurements and Additional Note: Post-Debridement Measurements/Treatment WC - Nurse 1 - General Ulcer Assessment Start: 09/01/22 09:10 Freq: Status: Active Protocol: KIRA Activity Type Activity Date Activity User E-sign Co-sign Detail Recorded Client Recorded Date Recorded By Document 09/01/22 09:10 DL [id number] 09/01/22 09:22 DL Document 09/15/22 08:09 BM [id number] 09/15/22 08:13 BMF 09/01/22 09/15/22 09:10 08:09 - Today's Visit Information Type of service Follow-up Visit Follow-up Visit (Physician/HEAD BAKER (Physician/HEAD BAKER ) ) Arrival Mode Wheelchair Wheelchair Transfer Assistance Billy Lift,None Billy Lift Transfer Assist (Other) 2 Patient Identification Verified (Name & Yes Yes ) Patient Requires Transmission-Based No No Precautions Height and Weight Body Mass Index (BMI) 35.5 35.5 BMI Classification Obese Obese Vital Signs Temperature (97.8 F-99.1 F) 91 F L 96.2 F L Temperature Source Temporal Temporal Pulse Rate (60-100) 84 76 Pulse Location Monitor Monitor Respiratory Rate (12-18) 20 H 16 Respiratory rate source Observation Observation Oxygen Delivery Method Room Air Blood Pressure (90/60-120/80) 143/71 H 120/56 L Blood Pressure Mean (mm Hg) 95 77 Source Monitor Monitor Position Sitting Blood Pressure Location Left Arm History Since Last Visit- (Skip if this is Patient's initial visit) Have you changed medications since your No No last visit? Any new allergies or adverse reactions No No Had a fall/change in ADL's that may No No increase risk of falls Signs or symptoms of abuse and/or No No neglect since last visit Have you been in the hospital since your No No last visit? Has dressing in place as prescribed Yes Yes Has compression in place as prescribed N/A N/A Has offloadiing in place as prescribed Yes N/A Experienced any changes in pain level or No No management Left Footwear Custom Shoe Right Footwear Custom Shoe Pain Scale: 0-10 Numeric Is Patient Pain Free? Yes Yes - Nurse 1 - General Ulcer Measurement Start: 09/01/22 09:10 Freq: Status: Active Protocol: Activity Type Activity Date Activity User E-sign Co-sign Detail Recorded Client Recorded Date Recorded By Document 09/01/22 09:10 DL [id number] 09/01/22 09:22 DL Document 09/15/22 08:09 [facility] [id number] 09/15/22 08:13 [facility] 09/01/22 09/15/22 09:10 08:09 Wound Center Nurse 1 #5- R ischium -Combined with other wound No -Current Size (cm) - Length 5.2 3.2 -Current Size (cm) - Width 3.8 5.8 -Current Size (cm) - Depth 5.8 4.8 -Total Square Cm 19.76 18.56 -Date of Last Picture (Recall this 09/15/22 field) -Photo Taken Yes Yes -Epithelialization None Present -Tunneling No No -Undermining/Tunneling No No -Circular Undermining No No -Change in Wound Grade/Stage No -Exudate Amt Large Medium -Exudate Type Serosanguineous Serosanguineous -Wound Margin Distinct, Distinct, Outline Outline Attached Attached -Granulation Amt Large (67-100%) Large (67-100%) -Granulation Quality Red Red -Slough/Fibrin Yes No -Necrosis Amt Small (1-33%) None Present (0 %) -Necrotic Tissue Type Adherent Slough -Structure Exposed N/A -Texture (Michelle-wound Skin Appearance) Assessed, Assessed, Scarring Scarring -Moisture (Michelle-wound Skin Appearance) Assessed, Assessed Maceration -Color (Michelle-wound Skin Appearance) No Abnormality, Assessed Assessed -Temperature (Michelle-wound Skin No Abnormality No Abnormality Appearance) (Pt Warm) (Pt Warm) -Tenderness on Palpation (Michelle-wound No No Skin Appearance) -Ulcer Cleansing Soap and Water Soap and Water -Foul Odor after Cleansing No No -Anesthetic Used 4% Lidocaine 4% Lidocaine Solution Solution WC - Nurse 2 - General Ulcer CM Notes Start: 09/01/22 09:10 Freq: Status: Active Protocol: Activity Type Activity Date Activity User E-sign Co-sign Detail Recorded Client Recorded Date Recorded By Document 09/01/22 09:52 [id number] 09/01/22 09:55 Document 09/15/22 09:07 PL [id number] 09/15/22 09:09 PL 09/01/22 09/15/22 09:52 09:07 Wound Center Nurse 2 #5- R ischium -Time 09:52 08:45 -Correct Patient Yes Yes -Correct Side, Site, Position Yes Yes -Correct Procedure Yes Yes -Procedure Performed Yes Yes -Type of Procedure Debridement Debridement -Clinical Debridement Muscle / Fascia Muscle / Fascia -Tissue Removed Muscle,Fascia Epidermis, Dermis, Subcutaneous, Muscle -Post Debridement (cm) - Length 6.3 6.0 -Post Debridement (cm) - Width 4.5 5.0 -Post Debridement (cm) - Depth 3.9 5.0 -Total Square (Post) (cm) 28.35 30.00 -Area of Debridement (cm) - Length 6.3 6.0 -Area of Debridement (cm) - Width 4.5 5.0 -Total Square (Area) (cm) 28.35 30.00 -Tunneling No Yes -Tunneling Position (O'clock) 12 -Tunneling Distance (cm) 4.3 -Undermining/Tunneling Yes -Undermining/Tunneling Starts (O'clock 12 ) -Undermining/Tunneling Ends (O'clock) 3 -Maximum Distance (cm) 5.0 -Circular Undermining No No -Wound/Ulcer Outcome Not Healed Not Healed -Ulcer Cleansing Rinsed/ Rinsed/ Irrigated with Irrigated with Saline Saline -Foul Odor after Cleansing No No -Bioengineered Tissue No No -Bleeding Controlled with Pressure Pressure -Treatment Response Procedure Procedure Tolerated Well Tolerated Well -Offloading No -Pressure Reduction Wheelchair cushion -Debridement - Muscle / Fascia, 1st Yes Yes 20sq cm -Debridement, Muscle/Fascia, ea addt'l 1 1 20sq cm or part thereof Pain Scale: 0-10 Numeric Is Patient Pain Free? Yes Yes - Nurse 3 - General Ulcer D/C NN Start: 09/01/22 09:10 Freq: Status: Active Protocol: Activity Type Activity Date Activity User E-sign Co-sign Detail Recorded Client Recorded Date Recorded By Document 09/01/22 10:09 [facility] [id number] 09/01/22 10:10 [facility] Document 09/15/22 08:54 [id number] 09/15/22 08:55 DL 09/01/22 09/15/22 10:09 08:54 Wound Care Center Nurse 3 #5- R ischium -Ulcer Cleansing Rinsed/ Rinsed/ Irrigated with Irrigated with Saline Saline -Foul Odor after Cleansing No No -Primary Dressing Applied Hysept ($) -Other Dressing dakins moist gauze -Primary Dressing Covered/Secured with Secured with Dry Gauze, Tape Secured with Tape -Other Covering abd ABD Treatment Response Procedure Procedure Tolerated Well Tolerated Well Pain Scale: 0-10 Numeric Is Patient Pain Free? Yes Yes - Visit Discharge Discharge Condition Stable Stable Ambulatory Status Wheelchair Wheelchair Transportation transport Facility Type Home Health Home Health Orders Sent Yes Assessment/Plan Assessment/Plan (1) Right ischial pressure sore, stage 4: CODE(S): L89.314 - Pressure ulcer of right buttock, stage 4 (2) Osteomyelitis of right side of pelvis: CODE(S): M86.9 - Osteomyelitis, unspecified (3) Smoker: CODE(S): F17.200 - Nicotine dependence, unspecified, uncomplicated (4) Wheelchair dependent: CODE(S): Z99.3 - Dependence on wheelchair PLAN: Plan Patient evaluated at the wound center today. Wound care - Dakins 0.25% moistened gauze covered by ABD/super absorber daily and as needed. They have home health to help assist with his dressing changes. Operative tissue cultures positive for MSSA and Cutibacterium acnes. Bone cultures positive for MSSA and Corynebacterium striatum. He is being treated with Augmentin. He was seen in the ED on 05/02/22 because of a couple falls he experienced since his surgery. CT of his pelvis showed some bony disruption at the level of the inferior pubic ramus suggests a mild osteomyelitis. Prealbumin 13.4 on 04/29/22. Anticipate increased metabolic demands from the infection. Encourage nutritional supplementation with protein to help the healing process. A wound culture was obtained on 07/14/22, which was positive for Staphylococcus aureus and was treated with Augmentin. He had a colonscopy by Dr. Romero on 06/18/22. Patient has decided he will have acolostomy, he said it will be scheduled in October. He has home health to assist with wound care. Follow up three weeks. Call or come in sooner if needed. 09/23/22 1255 <Electronically signed by Kemi Rubio NP [employer]> Cosigner Signature (if applicable): CC: ~ Signed [facility] Work Phone: [phone] 459-514506-11-2023 Progress note Author Kemi Rubio [facility] September 06, 2022 10:52pm Note Date/Time September 01, 2022 1:00p m [facility] [address] [place] [id number] Progress Note - Wound Care 09/01/22 1300 MR#: [id number] Acct: [id number] Name: JORGE COVINGTON Rep #:[id number] 3 : 1955 67 From: Kemi santiago LUBE MAN [employer] PCP: Care Physician,No Primary Status :REG RCR Location: History of Present Illness Date of Service: 09/01/22 Chief Complaint: Right ischial pressure sore, Stage IV. History of Wound: This is a 67-year-old white male who presented to the wound healing center with complaints of pressure ulcer to right buttock area with extension to the right ischial bone. This started in October,. Patient's was treating with OTC creams and keeping area clean. The ulcer starting increasing in size and went to the Emergency Department on 02/08/22. CT showed subcutaneous and deep soft tissue involvement and possible early abscess formation. The bone was not addressed. He had a wound culture on 02/28/22. It was positive for E. coli, Staphylococcus aureus, and Clostridium perfringens. He was treated with Augmentin. The patient has very limited mobility as a result of a prior spine injury/surgery. He utilizes a wheelchair at all times. He has not been using his billy lift at home to transfer but has been using a board to slide himself from his bed to chair at home. He sits in his wheelchair almost all day, not really able to change positions. They finally obtained a low air loss overlay totheir regular mattress at home. A roho cushion was ordered for his wheelchair. Patient is a smoker. Surgery 04/28/22 - Excision right ischial pressure sore, Stage IV, with partial ostectomy for osteomyelitis. Size of wound 8 x 7 x 4.5 cm. Operative tissue cultures positive for MSSA and Cutibacterium acnes. Bone cultures positive for MSSA and Corynebacterium striatum. He is being treated with Augmentin. Wound culture from 07/14/22 positive for Staphylococcus aureus and he was treatedwith Augmentin. Prealbumin 13.4 on 04/29/22. He was seen in the ED on 05/02/22 because of a couple falls he experienced since his surgery. CT of his pelvis showed some bony disruption at the level of the inferior pubic ramus suggests a mild osteomyelitis. Anticipate increased metabolic demands from the infection. Encourage nutritional supplementation with protein to help the healing process. Today he denies fever. His appetite is ok. Progress of Wound: Ulcer is beefy pink. The ulcer is into the muscle with bone palpable this week. Ulcer is stable. The patient has decided to have a colostomy p laced, he follows up with the surgeon soon. Objective Data Objective Data Vital Signs: Vital Signs Temp Pulse Resp BP 91 F L 84 20 H 143/71 H 09/01/22 09:10 09/01/22 09:10 09/01/22 09:10 09/01/22 09:10 Weight: 220 lb Body Mass Index (BMI) 35.5 Charges/Coding Procedures Integumentary 111xxx-113xx: 18425 Lillian musc/fascia 20 sq cm/< Add On Codes: 18114 Lillian musc/fascia add-on Debridement Note Debridement Note Wound debrided: Ischial ulcer Laterality: Right Wound Grade/Stage: Stage IV Type of Debridement: Excisional debridement Anesthesia Used: 5% Lidocaine Gel Depth: Down to and including healthy tissue, in the subcutaneous layer and to muscle Percentage of wound debrided: 100 Instrument Used: 7mm curette Tissue Removed: Devitalized tissue and slough into the muscle Severity: Fat Layer Exposed Amount of bleeding with debridement: Mild Bleeding Controlled with: Pressure and Compression and gauze Patient tolerated procedure: Patient tolerated procedure well Debridement Free Text: Ulcer into the muscle, bone is palpable today. Post-Debridement Measurements and Additional Note: Post-Debridement Measurements/Treatment - Nurse 1 - General Ulcer Assessment Start: 09/01/22 09:10 Freq: Status: Active Protocol: DILCIA.NORIS Activity Type Activity Date Activity User E-sign Co-sign Detail Recorded Client Recorded Date Recorded By Document 09/01/22 09:10 [id number] 09/01/22 09:22 DL 09/01/22 09:10 - Today's Visit Information Type of service Follow-up Visit (Physician/HEAD BAKER ) Arrival Mode Wheelchair Transfer Assistance Billy Lift,None Patient Identification Verified (Name & Yes ) Patient Requires Transmission-Based No Precautions Height and Weight Body Mass Index (BMI) 35.5 BMI Classification Obese Vital Signs Temperature (97.8 F-99.1 F) 91 F L Temperature Source Temporal Pulse Rate (60-100) 84 Pulse Location Monitor Respiratory Rate (12-18) 20 H Respiratory rate source Observation Blood Pressure (90/60-120/80) 143/71 H Blood Pressure Mean (mm Hg) 95 Source Monitor History Since Last Visit- (Skip if this is Patient's initial visit) Have you changed medications since your No last visit? Any new allergies or adverse reactions No Had a fall/change in ADL's that may No increase risk of falls Signs or symptoms of abuse and/or No neglect since last visit Have you been in the hospital since your No last visit? Has dressing in place as prescribed Yes Has compression in place as prescribed N/A Has offloadiing in place as prescribed Yes Experienced any changes in pain level or No management Pain Scale: 0-10 Numeric Is Patient Pain Free? Yes DILCIA - Nurse 1 - General Ulcer Measurement Start: 09/01/22 09:10 Freq: Status: Active Protocol: Activity Type Activity Date Activity User E-sign Co-sign Detail Recorded Client Recorded Date Recorded By Document 09/01/22 09:10 DL [id number] 09/01/22 09:22 DL 09/01/22 09:10 Wound Center Nurse 1 #5- R ischium -Current Size (cm) - Length 5.2 -Current Size (cm) - Width 3.8 -Current Size (cm) - Depth 5.8 -Total Square Cm 19.76 -Photo Taken Yes -Tunneling No -Undermining/Tunneling No -Circular Undermining No -Change in Wound Grade/Stage No -Exudate Amt Large -Exudate Type Serosanguineous -Wound Margin Distinct, Outline Attached -Granulation Amt Large (67-100%) -Granulation Quality Red -Slough/Fibrin Yes -Necrosis Amt Small (1-33%) -Necrotic Tissue Type Adherent Slough -Structure Exposed N/A -Texture (Michelle-wound Skin Appearance) Assessed, Scarring -Moisture (Michelle-wound Skin Appearance) Assessed, Maceration -Color (Michelle-wound Skin Appearance) No Abnormality, Assessed -Temperature (Michelle-wound Skin No Abnormality Appearance) (Pt Warm) -Tenderness on Palpation (Michelle-wound No Skin Appearance) -Ulcer Cleansing Soap and Water -Foul Odor after Cleansing No -Anesthetic Used 4% Lidocaine Solution DILCIA - Nurse 2 - General Ulcer CM Notes Start: 09/01/22 09:10 Freq: Status: Active Protocol: Activity Type Activity Date Activity User E-sign Co-sign Detail Recorded Client Recorded Date Recorded By Document 09/01/22 09:52 [id number] 09/01/22 09:55 JF 09/01/22 09:52 Wound Center Nurse 2 -Time 09:52 -Correct Patient Yes -Correct Side, Site, Position Yes -Correct Procedure Yes -Procedure Performed Yes -Type of Procedure Debridement -Clinical Debridement Muscle / Fascia -Tissue Removed Muscle,Fascia -Post Debridement (cm) - Length 6.3 -Post Debridement (cm) - Width 4.5 -Post Debridement (cm) - Depth 3.9 -Total Square (Post) (cm) 28.35 -Area of Debridement (cm) - Length 6.3 -Area of Debridement (cm) - Width 4.5 -Total Square (Area) (cm) 28.35 -Tunneling No -Undermining/Tunneling Yes -Undermining/Tunneling Starts (O'clock 12 ) -Undermining/Tunneling Ends (O'clock) 3 -Maximum Distance (cm) 5.0 -Circular Undermining No -Wound/Ulcer Outcome Not Healed -Ulcer Cleansing Rinsed/ Irrigated with Saline -Foul Odor after Cleansing No -Bioengineered Tissue No -Bleeding Controlled with Pressure -Treatment Response Procedure Tolerated Well -Offloading No -Pressure Reduction Wheelchair cushion -Debridement - Muscle / Fascia, 1st Yes 20sq cm -Debridement, Muscle/Fascia, ea addt'l 1 20sq cm or part thereof Pain Scale: 0-10 Numeric Is Patient Pain Free? Yes - Nurse 3 - General Ulcer D/C NN Start: 09/01/22 09:10 Freq: Status: Active Protocol: Activity Type Activity Date Activity User E-sign Co-sign Detail Recorded Client Recorded Date Recorded By Document 09/01/22 10:09 [facility] [id number] 09/01/22 10:10 [facility] 09/01/22 10:09 Wound Care Center Nurse 3 #5- R ischium -Ulcer Cleansing Rinsed/ Irrigated with Saline -Foul Odor after Cleansing No -Other Dressing dakins moist gauze -Primary Dressing Covered/Secured with Secured with Tape -Other Covering abd Treatment Response Procedure Tolerated Well Pain Scale: 0-10 Numeric Is Patient Pain Free? Yes WC - Visit Discharge Discharge Condition Stable Ambulatory Status Wheelchair Transportation transport Facility Type Home Health Assessment/Plan Assessment/Plan (1) Right ischial pressure sore, stage 4: CODE(S): L89.314 - Pressure ulcer of right buttock, stage 4 (2) Osteomyelitis of right side of pelvis: CODE(S): M86.9 - Osteomyelitis, unspecified (3) Smoker: CODE(S): F17.200 - Nicotine dependence, unspecified, uncomplicated (4) Wheelchair dependent: CODE(S): Z99.3 - Dependence on wheelchair PLAN: Plan Patient evaluated at the wound center today. Wound care - Dakins 0.25% moistened gauze covered by ABD/super absorber daily and as needed. They have home health to help assist with his dressing changes. Operative tissue cultures positive for MSSA and Cutibacterium acnes. Bone cultures positive for MSSA and Corynebacterium striatum. He is being treated with Augmentin. He was seen in the ED on 05/02/22 because of a couple falls he experienced since his surgery. CT of his pelvis showed some bony disruption at the level of the inferior pubic ramus suggests a mild osteomyelitis. Prealbumin 13.4 on 04/29/22. Anticipate increased metabolic demands from the infection. Encourage nutritional supplementation with protein to help the healing process. A wound culture was obtained on 07/14/22, which was positive for Staphylococcus aureus and was treated with Augmentin. He had a colonscopy by Dr. Romero on 06/18/22. Patient has decided he will have acolostomy, he is waiting for it to be scheduled. He has home health to assist with wound care. Follow up two weeks. Call or come in sooner if needed. 09/06/22 2913 <Electronically signed by Kemi Rubio NP [employer]> Cosigner Signature (if applicable): CC: ~ Signed [facility] Work Phone: [phone]) [phone] Progress note Author Kemi Rubio [facility] August 24, 2022 1:14pm Note Date/Time August 18, 2022 11:[address] [facility] [address] [place] [id number] Progress Note - Wound Care 08/18/22 1131 MR#: [id number] Acct: [id number] Name: JOREG COVINGTON Rep #:[id number] : 1955 67 From: Kemi santiago LUBE MAN [employer] PCP: Care Physician,No Primary Status :REG RCR Location: History of Present Illness Date of Service: 08/18/22 Chief Complaint: Right ischial pressure sore, Stage IV. History of Wound: This is a 66-year-old white male who presented to the wound healing center with complaints of pressure ulcer to right buttock area with extension to the right ischial bone. This started in October,. Patient's was treating with OTC creams and keeping area clean. The ulcer starting increasing in size and went to the Emergency Department on 02/08/22. CT showed subcutaneous and deep soft tissue involvement and possible early abscess formation. The bone was not addressed. He had a wound culture on 02/28/22. It was positive for E. coli, Staphylococcus aureus, and Clostridium perfringens. He was treated with Augmentin. The patient has very limited mobility as a result of a prior spine injury/surgery. He utilizes a wheelchair at all times and requires a billy lift to transfer to cot here. He sits in his wheelchair almost all day, not really able to change positions. They finally obtained a low air loss overlay to their regular mattress at home. A roho cushion was ordered for his wheelchair. Patient is a smoker. Surgery 04/28/22 - Excision right ischial pressure sore, Stage IV, with partial ostectomy for osteomyelitis. Size of wound 8 x 7 x 4.5 cm. Operative tissue cultures positive for MSSA and Cutibacterium acnes. Bone cultures positive for MSSA and Corynebacterium striatum. He is being treated with Augmentin. Wound culture from 07/14/22 positive for Staphylococcus aureus and he was treatedwith Augmentin. Prealbumin 13.4 on 04/29/22. He was seen in the ED on 05/02/22 because of a couple falls he experienced since his surgery. CT of his pelvis showed some bony disruption at the level of the inferior pubic ramus suggests a mild osteomyelitis. Anticipate increased metabolic demands from the infection. Encourage nutritional supplementation with protein to help the healing process. Today he denies fever. His appetite is ok. Progress of Wound: Ulcer is beefy pink. The ulcer is into the muscle with bone is now covered. Ulcer has slightly improved. The patient has decided to have a colostomy placed, he waiting for the surgery to be scheduled. Objective Data Objective Data Vital Signs: Vital Signs Temp Pulse Resp BP O2 Del Method 97.2 F L 81 16 112/53 L Room Air 08/18/22 08:35 08/18/22 08:35 08/18/22 08:35 08/18/22 08:35 08/18/22 08:35 Oxygen Delivery Method Room Air Weight: 220 lb Body Mass Index (BMI) 35.5 Charges/Coding Procedures Integumentary 111xxx-113xx: 98228 Lillian musc/fascia 20 sq cm/< Add On Codes: 00554 Lillian musc/fascia add-on Debridement Note Debridement Note Wound debrided: Ischial ulcer Laterality: Right Wound Grade/Stage: Stage IV Type of Debridement: Excisional debridement Anesthesia Used: 5% Lidocaine Gel Depth: Down to and including healthy tissue, in the subcutaneous layer and to muscle Percentage of wound debrided: 100 Instrument Used: 7mm curette Tissue Removed: Devitalized tissue and slough into the muscle Severity: Fat Layer Exposed Amount of bleeding with debridement: Mild Bleeding Controlled with: Pressure and Compression and gauze Patient tolerated procedure: Patient tolerated procedure well Debridement Free Text: Ulcer into the muscle, bone is now covered Post-Debridement Measurements and Additional Note: Post-Debridement Measurements/Treatment - Nurse 1 - General Ulcer Assessment Start: 07/28/22 08:57 Freq: Status: Active Protocol: KIRA Activity Type Activity Date Activity User E-sign Co-sign Detail Recorded Client Recorded Date Recorded By Document 07/28/22 09:10 DL [id number] 07/28/22 09:13 DL Document 08/18/22 08:35 [facility] [id number] 08/18/22 08:44 BM 07/28/22 08/18/22 09:10 08:35 - Today's Visit Information Type of service Follow-up Visit Follow-up Visit (Physician/HEAD BAKER (Physician/HEAD BAKER ) ) Arrival Mode Wheelchair Wheelchair Transfer Assistance Billy Lift Billy Lift Transfer Assist (Other) 2 Patient Identification Verified (Name & Yes Yes ) Patient Requires Transmission-Based No No Precautions Height and Weight Body Mass Index (BMI) 35.5 35.5 BMI Classification Obese Obese Vital Signs Temperature (97.8 F-99.1 F) 97.5 F L 97.2 F L Temperature Source Temporal Temporal Pulse Rate (60-100) 76 81 Pulse Location Monitor Monitor Respiratory Rate (12-18) 20 H 16 Respiratory rate source Observation Observation Oxygen Delivery Method Room Air Blood Pressure (90/60-120/80) 115/61 112/53 L Blood Pressure Mean (mm Hg) 79 72 Source Monitor Monitor Position Sitting Blood Pressure Location Right Arm History Since Last Visit- (Skip if this is Patient's initial visit) Have you changed medications since your No No last visit? Any new allergies or adverse reactions No No Had a fall/change in ADL's that may No No increase risk of falls Signs or symptoms of abuse and/or No No neglect since last visit Have you been in the hospital since your No No last visit? Has dressing in place as prescribed Yes Yes Has compression in place as prescribed N/A N/A Has offloadiing in place as prescribed Yes N/A Experienced any changes in pain level or No No management Left Footwear Regular Shoe Right Footwear Regular Shoe Pain Scale: 0-10 Numeric Is Patient Pain Free? Yes Yes WC - Nurse 1 - General Ulcer Measurement Start: 07/28/22 08:57 Freq: Status: Active Protocol: Activity Type Activity Date Activity User E-sign Co-sign Detail Recorded Client Recorded Date Recorded By Document 07/28/22 09:10 DL [id number] 07/28/22 09:13 DL Document 08/18/22 08:35 [facility] [id number] 08/18/22 08:44 BMF 07/28/22 08/18/22 09:10 08:35 Wound Center Nurse 1 #5- R ischium -Combined with other wound No -Current Size (cm) - Length 6 6.1 -Current Size (cm) - Width 5.8 4 -Current Size (cm) - Depth 4 4 -Total Square Cm 34.8 24.4 -Date of Last Picture (Recall this 08/18/22 field) -Photo Taken No Yes -Epithelialization Small 1-33% -Tunneling No -Undermining/Tunneling Yes -Undermining/Tunneling Starts (O'clock 1 ) -Undermining/Tunneling Ends (O'clock) 4 -Maximum Distance (cm) 6.2 -Circular Undermining No -Exudate Amt Medium Large -Exudate Type Serosanguineous Serosanguineous -Wound Margin Distinct, Distinct, Outline Outline Attached Attached -Granulation Amt Large (67-100%) Large (67-100%) -Granulation Quality Red Red -Slough/Fibrin Yes -Necrosis Amt None Present (0 Small (1-33%) %) -Necrotic Tissue Type Adherent Slough -Structure Exposed N/A Bone -Texture (Michelle-wound Skin Appearance) Scarring Assessed, Scarring -Moisture (Michelle-wound Skin Appearance) No Abnormality Assessed -Color (Michelle-wound Skin Appearance) No Abnormality Assessed -Temperature (Michelle-wound Skin No Abnormality No Abnormality Appearance) (Pt Warm) (Pt Warm) -Tenderness on Palpation (Michelle-wound No No Skin Appearance) -Ulcer Cleansing Soap and Water Soap and Water -Foul Odor after Cleansing No No -Anesthetic Used 4% Lidocaine 4% Lidocaine Solution Solution WC - Nurse 2 - General Ulcer CM Notes Start: 07/28/22 08:57 Freq: Status: Active Protocol: Activity Type Activity Date Activity User E-sign Co-sign Detail Recorded Client Recorded Date Recorded By Document 07/28/22 09:24 ESTER [id number] 07/28/22 09:26 JF Edit Result 07/28/22 09:24 ESTER (1) [id number] 07/29/22 06:33 PL Document 08/18/22 09:14 ESTER [id number] 08/18/22 09:17 ESTER (1) #5- R ischium - Debridement, Muscle/Fascia, ea addt'l => 1 20sq cm or part thereof 07/28/22 08/18/22 09:24 09:14 Wound Center Nurse 2 #5- R ischium -Time 09:24 09:14 -Correct Patient Yes Yes -Correct Side, Site, Position Yes Yes -Correct Procedure Yes Yes -Procedure Performed Yes Yes -Type of Procedure Debridement Debridement -Clinical Debridement Muscle / Fascia Muscle / Fascia -Tissue Removed Muscle,Fascia Muscle,Fascia -Post Debridement (cm) - Length 6.0 6.5 -Post Debridement (cm) - Width 3.5 4.5 -Post Debridement (cm) - Depth 3.7 2.8 -Total Square (Post) (cm) 21.00 29.25 -Area of Debridement (cm) - Length 6.0 6.5 -Area of Debridement (cm) - Width 3.5 4.5 -Total Square (Area) (cm) 21.00 29.25 -Tunneling No No -Undermining/Tunneling Yes Yes -Undermining/Tunneling Starts (O'clock 12 12 ) -Undermining/Tunneling Ends (O'clock) 3 3 -Maximum Distance (cm) 4.0 5.1 -Circular Undermining No No -Wound/Ulcer Outcome Not Healed Not Healed -Ulcer Cleansing Rinsed/ Rinsed/ Irrigated with Irrigated with Saline Saline -Foul Odor after Cleansing No No -Bioengineered Tissue No No -Bleeding Controlled with Pressure Pressure -Treatment Response Procedure Procedure Tolerated Well Tolerated Well -Offloading No No -Pressure Reduction Wheelchair cushion -Debridement - Muscle / Fascia, 1st Yes Yes 20sq cm -Debridement, Muscle/Fascia, ea addt'l 1 1 20sq cm or part thereof Pain Scale: 0-10 Numeric Is Patient Pain Free? Yes Yes - Nurse 3 - General Ulcer D/C NN Start: 07/28/22 08:57 Freq: Status: Active Protocol: Activity Type Activity Date Activity User E-sign Co-sign Detail Recorded Client Recorded Date Recorded By Document 07/28/22 09:50 PL [id number] 07/28/22 09:51 PL Document 08/18/22 09:21 [facility] [id number] 08/18/22 09:22 [facility] 07/28/22 08/18/22 09:50 09:21 Wound Care Center Nurse 3 #5- R ischium -Ulcer Cleansing Rinsed/ Rinsed/ Irrigated with Irrigated with Saline Saline -Foul Odor after Cleansing No No -Primary Dressing Applied Hysept ($) -Other Dressing Suemónica dakins moist gauze; 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 Yes Yes - Visit Discharge Discharge Condition Stable Stable Ambulatory Status Wheelchair Wheelchair Transportation transport Facility Type Home Health Assessment/Plan Assessment/Plan (1) Right ischial pressure sore, stage 4: CODE(S): L89.314 - Pressure ulcer of right buttock, stage 4 (2) Osteomyelitis of right side of pelvis: CODE(S): M86.9 - Osteomyelitis, unspecified (3) Bedridden: CODE(S): Z74.01 - Bed confinement status (4) Smoker: CODE(S): F17.200 - Nicotine dependence, unspecified, uncomplicated PLAN: Plan Patient evaluated at the wound center today. Wound care - Dakins 0.25% moistened gauze covered by ABD/super absorber daily and as needed. They have home health to help assist with his dressing changes. Operative tissue cultures positive for MSSA and Cutibacterium acnes. Bone cultures positive for MSSA and Corynebacterium striatum. He is being treated with Augmentin. He was seen in the ED on 05/02/22 because of a couple falls he experienced since his surgery. CT of his pelvis showed some bony disruption at the level of the inferior pubic ramus suggests a mild osteomyelitis. Prealbumin 13.4 on 04/29/22. Anticipate increased metabolic demands from the infection. Encourage nutritional supplementation with protein to help the healing process. A wound culture was obtained on 07/14/22, which was positive for Staphylococcus aureus and was treated with Augmentin. He had a colonscopy by Dr. Romero on 06/18/22. Patient has decided he will have acolostomy, he is waiting for it to be scheduled. He has home health to assist with wound care. Follow up three weeks. Call or come in sooner if needed. 08/24/22 [id number] <Electronically signed by Kemi Rubio NP [employer]> Cosigner Signature (if applicable): CC: ~ Signed [facility] Work Phone: 1(752) 542-478405-09-2023 Progress note Author Kemi Rubio [facility] August 05, 2022 3:38pm Note Date/Time July 28, 2022 12:17p m [facility] [address] [place] [id number] Progress Note - Wound Care 07/28/22 1217 MR#: [id number] Acct: [id number] Name: JORGE COVINGTON Rep #:[id number] 3 : 1955 66 From: Kemi santiago LUBE MAN LUBE MAN-C PCP: Care Physician,No Primary Status :REG RCR Location: History of Present Illness Date of Service: 07/28/22 Chief Complaint: Right ischial pressure sore, Stage IV. History of Wound: This is a 66-year-old white male who presented to the wound healing center with complaints of pressure ulcer to right buttock area with extension to the right ischial bone. This started in October,. Patient's was treating with OTC creams and keeping area clean. The ulcer starting increasing in size and went to the Emergency Department on 02/08/22. CT showed subcutaneous and deep soft tissue involvement and possible early abscess formation. The bone was not addressed. He had a wound culture on 02/28/22. It was positive for E. coli, Staphylococcus aureus, and Clostridium perfringens. He was treated with Augmentin. The patient has very limited mobility as a result of a prior spine injury/surgery. He utilizes a wheelchair at all times and requires a billy lift to transfer to cot here. He sits in his wheelchair almost all day, not really able to change positions. They finally obtained a low air loss overlay to their regular mattress at home. A roho cushion was ordered for his wheelchair. Patient is a smoker. Surgery 04/28/22 - Excision right ischial pressure sore, Stage IV, with partial ostectomy for osteomyelitis. Size of wound 8 x 7 x 4.5 cm. Operative tissue cultures positive for MSSA and Cutibacterium acnes. Bone cultures positive for MSSA and Corynebacterium striatum. He is being treated with Augmentin. Wound culture from 07/14/22 positive for Staphylococcus aureus and he was treatedwith Augmentin. Prealbumin 13.4 on 04/29/22. He was seen in the ED on 05/02/22 because of a couple falls he experienced since his surgery. CT of his pelvis showed some bony disruption at the level of the inferior pubic ramus suggests a mild osteomyelitis. Anticipate increased metabolic demands from the infection. Encourage nutritional supplementation with protein to help the healing process. Today he denies fever. His appetite is ok. Progress of Wound: Ulcer is beefy pink. The ulcer is into the muscle with bone almost completely covered. Ulcer has slightly improved. The patient has decided to have a colostomy placed, he waiting for the surgery to be scheduled. Objective Data Objective Data Vital Signs: Vital Signs Temp Pulse Resp BP 97.5 F L 76 20 H 115/61 07/28/22 09:10 07/28/22 09:10 07/28/22 09:10 07/28/22 09:10 Weight: 220 lb Body Mass Index (BMI) 35.5 Charges/Coding Procedures Integumentary 111xxx-113xx: 14368 Lillian musc/fascia 20 sq cm/< Add On Codes: 39687 Lillian musc/fascia add-on Debridement Note Debridement Note Wound debrided: Ischial ulcer Laterality: Right Wound Grade/Stage: Stage IV Type of Debridement: Excisional debridement Anesthesia Used: 5% Lidocaine Gel Depth: Down to and including healthy tissue, in the subcutaneous layer and to muscle Percentage of wound debrided: 100 Instrument Used: 7mm curette Tissue Removed: Devitalized tissue and slough into the muscle Severity: Fat Layer Exposed Amount of bleeding with debridement: Mild Bleeding Controlled with: Pressure and Compression and gauze Patient tolerated procedure: Patient tolerated procedure well Debridement Free Text: Ulcer into the muscle, minimal bone exposure. Post-Debridement Measurements and Additional Note: Post-Debridement Measurements/Treatment - Nurse 1 - General Ulcer Assessment Start: 07/28/22 08:57 Freq: Status: Active Protocol: [email or web address].[email or web address] Activity Type Activity Date Activity User E-sign Co-sign Detail Recorded Client Recorded Date Recorded By Document 07/28/22 09:10 [id number] 07/28/22 09:13 DL 07/28/22 09:10 - Today's Visit Information Type of service Follow-up Visit (Physician/HEAD BAKER ) Arrival Mode Wheelchair Transfer Assistance Billy Lift Patient Identification Verified (Name & Yes ) Patient Requires Transmission-Based No Precautions Height and Weight Body Mass Index (BMI) 35.5 BMI Classification Obese Vital Signs Temperature (97.8 F-99.1 F) 97.5 F L Temperature Source Temporal Pulse Rate (60-100) 76 Pulse Location Monitor Respiratory Rate (12-18) 20 H Respiratory rate source Observation Blood Pressure (90/60-120/80) 115/61 Blood Pressure Mean (mm Hg) 79 Source Monitor History Since Last Visit- (Skip if this is Patient's initial visit) Have you changed medications since your No last visit? Any new allergies or adverse reactions No Had a fall/change in ADL's that may No increase risk of falls Signs or symptoms of abuse and/or No neglect since last visit Have you been in the hospital since your No last visit? Has dressing in place as prescribed Yes Has compression in place as prescribed N/A Has offloadiing in place as prescribed Yes Experienced any changes in pain level or No management Pain Scale: 0-10 Numeric Is Patient Pain Free? Yes - Nurse 1 - General Ulcer Measurement Start: 07/28/22 08:57 Freq: Status: Active Protocol: Activity Type Activity Date Activity User E-sign Co-sign Detail Recorded Client Recorded Date Recorded By Document 07/28/22 09:10 ARVIN [id number] 07/28/22 09:13 DL 07/28/22 09:10 Wound Center Nurse 1 #5- R ischium -Current Size (cm) - Length 6 -Current Size (cm) - Width 5.8 -Current Size (cm) - Depth 4 -Total Square Cm 34.8 -Photo Taken No -Exudate Amt Medium -Exudate Type Serosanguineous -Wound Margin Distinct, Outline Attached -Granulation Amt Large (67-100%) -Granulation Quality Red -Necrosis Amt None Present (0 %) -Structure Exposed N/A -Texture (Michelle-wound Skin Appearance) Scarring -Moisture (Michelle-wound Skin Appearance) No Abnormality -Color (Michelle-wound Skin Appearance) No Abnormality -Temperature (Michelle-wound Skin No Abnormality Appearance) (Pt Warm) -Tenderness on Palpation (Michelle-wound No Skin Appearance) -Ulcer Cleansing Soap and Water -Foul Odor after Cleansing No -Anesthetic Used 4% Lidocaine Solution - Nurse 2 - General Ulcer CM Notes Start: 07/28/22 08:57 Freq: Status: Active Protocol: Activity Type Activity Date Activity User E-sign Co-sign Detail Recorded Client Recorded Date Recorded By Document 07/28/22 09:24 ESTER [id number] 07/28/22 09:26 ESTER 07/28/22 09:24 Wound Center Nurse 2 -Time 09:24 -Correct Patient Yes -Correct Side, Site, Position Yes -Correct Procedure Yes -Procedure Performed Yes -Type of Procedure Debridement -Clinical Debridement Muscle / Fascia -Tissue Removed Muscle,Fascia -Post Debridement (cm) - Length 6.0 -Post Debridement (cm) - Width 3.5 -Post Debridement (cm) - Depth 3.7 -Total Square (Post) (cm) 21.00 -Area of Debridement (cm) - Length 6.0 -Area of Debridement (cm) - Width 3.5 -Total Square (Area) (cm) 21.00 -Tunneling No -Undermining/Tunneling Yes -Undermining/Tunneling Starts (O'clock 12 ) -Undermining/Tunneling Ends (O'clock) 3 -Maximum Distance (cm) 4.0 -Circular Undermining No -Wound/Ulcer Outcome Not Healed -Ulcer Cleansing Rinsed/ Irrigated with Saline -Foul Odor after Cleansing No -Bioengineered Tissue No -Bleeding Controlled with Pressure -Treatment Response Procedure Tolerated Well -Offloading No -Debridement - Muscle / Fascia, 1st Yes 20sq cm Pain Scale: 0-10 Numeric Is Patient Pain Free? Yes - Nurse 3 - General Ulcer D/C NN Start: 07/28/22 08:57 Freq: Status: Active Protocol: Activity Type Activity Date Activity User E-sign Co-sign Detail Recorded Client Recorded Date Recorded By Document 07/28/22 09:50 JENNIFER [id number] 07/28/22 09:51 PL 07/28/22 09:50 Wound Care Center Nurse 3 #5- R ischium -Ulcer Cleansing Rinsed/ Irrigated with Saline -Foul Odor after Cleansing No -Other Dressing Sue,abd -Primary Dressing Covered/Secured with Secured with Tape Pain Scale: 0-10 Numeric Is Patient Pain Free? Yes - Visit Discharge Discharge Condition Stable Ambulatory Status Wheelchair Assessment/Plan Assessment/Plan (1) Right ischial pressure sore, stage 4: CODE(S): L89.314 - Pressure ulcer of right buttock, stage 4 (2) Osteomyelitis of right side of pelvis: CODE(S): M86.9 - Osteomyelitis, unspecified (3) Bedridden: CODE(S): Z74.01 - Bed confinement status (4) Smoker: CODE(S): F17.200 - Nicotine dependence, unspecified, uncomplicated PLAN: Plan Patient evaluated at the wound center today. Wound care - Dakins 0.25% moistened gauze covered by ABD/super absorber daily and as needed. They have home health to help assist with his dressing changes. Operative tissue cultures positive for MSSA and Cutibacterium acnes. Bone cultures positive for MSSA and Corynebacterium striatum. He is being treated with Augmentin. He was seen in the ED on 05/02/22 because of a couple falls he experienced since his surgery. CT of his pelvis showed some bony disruption at the level of the inferior pubic ramus suggests a mild osteomyelitis. Prealbumin 13.4 on 04/29/22. Anticipate increased metabolic demands from the infection. Encourage nutritional supplementation with protein to help the healing process. A wound culture was obtained on 07/14/22, which was positive for Staphylococcus aureus and was treated with Augmentin. He had a colonscopy by Dr. Romero on 06/18/22. Patient has decided he will have acolostomy, he is waiting for it to be scheduled. He has home health to assist with wound care. Follow up three weeks. Call or come in sooner if needed. 08/05/22 1538 <Electronically signed by Kemi Rubio NP [employer]> Cosigner Signature (if applicable): CC: ~ Signed [facility] Work Phone: [phone]) 147-841104-23-2023 Progress note Author Kemibehzad Rubio [facility] July 20, 2022 6:50pm Note Date/Time July 14, 2022 12: 07pm [facility] [address] [place] [id number] Progress Note - Wound Care 07/14/22 1206 MR#: [id number] Acct: [id number] Name: JORGE COVINGTON Rep #:[id number] 3 : 1955 66 From: Kemi santiago LUBE MAN LUBE MAN-C PCP: Care Physician,No Primary Status :REG RCR Location: History of Present Illness Date of Service: 07/14/22 Chief Complaint: Right ischial pressure sore, Stage IV. History of Wound: This is a 66-year-old white male who presented to the wound healing center with complaints of pressure ulcer to right buttock area with extension to the right ischial bone. This started in October,. Patient's was treating with OTC creams and keeping area clean. The ulcer starting increasing in size and went to the Emergency Department on 02/08/22. CT showed subcutaneous and deep soft tissue involvement and possible early abscess formation. The bone was not addressed. He had a wound culture on 02/28/22. It was positive for E. coli, Staphylococcus aureus, and Clostridium perfringens. He was treated with Augmentin. The patient has very limited mobility as a result of a prior spine injury/surgery. He utilizes a wheelchair at all times and requires a billy lift to transfer to cot here. He sits in his wheelchair almost all day, not really able to change positions. They finally obtained a low air loss overlay to their regular mattress at home. A roho cushion was ordered for his wheelchair. Patient is a smoker. Surgery 04/28/22 - Excision right ischial pressure sore, Stage IV, with partial ostectomy for osteomyelitis. Size of wound 8 x 7 x 4.5 cm. Operative tissue cultures positive for MSSA and Cutibacterium acnes. Bone cultures positive for MSSA and Corynebacterium striatum. He is being treated with Augmentin. Prealbumin 13.4 on 04/29/22. He was seen in the ED on 05/02/22 because of a couple falls he experienced since his surgery. CT of his pelvis showed some bony disruption at the level of the inferior pubic ramus suggests a mild osteomyelitis. Anticipate increased metabolic demands from the infection. Encourage nutritional supplementation with protein to help the healing process. Today he denies fever. His appetite is ok. Progress of Wound: Ulcer is beefy pink. The ulcer is into the muscle with minimal bone exposure. Ulcer has slightly improved. He is having increased pain in his ulcer. The patient has decided to have a colostomy placed. Objective Data Objective Data Vital Signs: Vital Signs Temp Pulse Resp BP 96.8 F L 84 18 118/67 07/14/22 08:21 07/14/22 08:21 07/14/22 08:21 07/14/22 08:21 Weight: 220 lb Body Mass Index (BMI) 35.5 Charges/Coding Procedures Integumentary 111xxx-113xx: 50683 Global Visit Debridement Note Debridement Note Wound debrided: Ischial ulcer Laterality: Right Wound Grade/Stage: Stage IV Type of Debridement: Excisional debridement Anesthesia Used: 5% Lidocaine Gel Depth: Down to and including healthy tissue, in the subcutaneous layer and to muscle Percentage of wound debrided: 100 Instrument Used: 7mm curette Tissue Removed: Devitalized tissue and slough into the muscle Severity: Fat Layer Exposed Amount of bleeding with debridement: Mild Bleeding Controlled with: Pressure and Compression and gauze Patient tolerated procedure: Patient tolerated procedure well Debridement Free Text: Ulcer into the muscle, minimal bone exposure. Post-Debridement Measurements and Additional Note: Post-Debridement Measurements/Treatment - Nurse 1 - General Ulcer Assessment Start: 06/30/22 08:16 Freq: Status: Active Protocol: KIRA Activity Type Activity Date Activity User E-sign Co-sign Detail Recorded Client Recorded Date Recorded By Document 06/30/22 08:16 DL [id number] 06/30/22 08:24 DL Document 07/14/22 08:21 DL [id number] 07/14/22 08:29 DL 06/30/22 07/14/22 08:16 08:21 - Today's Visit Information Type of service Follow-up Visit Follow-up Visit (Physician/HEAD BAKER (Physician/HEAD BAKER ) ) Arrival Mode Wheelchair Wheelchair Transfer Assistance Billy Lift Manual Transfer Assist (Other) x2 Patient Identification Verified (Name & Yes Yes ) Patient Requires Transmission-Based No No Precautions Height and Weight Body Mass Index (BMI) 35.5 35.5 BMI Classification Obese Obese Vital Signs Temperature (97.8 F-99.1 F) 96.1 F L 96.8 F L Temperature Source Temporal Temporal Pulse Rate (60-100) 86 84 Pulse Location Monitor Monitor Respiratory Rate (12-18) 20 H 18 Respiratory rate source Observation Blood Pressure (90/60-120/80) 133/83 H 118/67 Blood Pressure Mean (mm Hg) 99 84 Source Monitor Monitor History Since Last Visit- (Skip if this is Patient's initial visit) Have you changed medications since your No No last visit? Any new allergies or adverse reactions No No Had a fall/change in ADL's that may No No increase risk of falls Signs or symptoms of abuse and/or No No neglect since last visit Have you been in the hospital since your No No last visit? Has dressing in place as prescribed Yes Yes Has compression in place as prescribed N/A N/A Has offloadiing in place as prescribed Yes Yes Experienced any changes in pain level or No No management Pain Scale: 0-10 Numeric Is Patient Pain Free? Yes Yes - Nurse 1 - General Ulcer Measurement Start: 06/30/22 08:16 Freq: Status: Active Protocol: Activity Type Activity Date Activity User E-sign Co-sign Detail Recorded Client Recorded Date Recorded By Document 06/30/22 08:16 DL [id number] 06/30/22 08:24 DL Document 07/14/22 08:21 DL [id number] 07/14/22 08:29 DL 06/30/22 07/14/22 08:16 08:21 Wound Center Nurse 1 #5- R ischium -Current Size (cm) - Length 5 7 -Current Size (cm) - Width 6 4.5 -Current Size (cm) - Depth 4.4 4 -Total Square Cm 30 31.5 -Photo Taken Yes Yes -Exudate Amt Small Medium -Exudate Type Serosanguineous Serosanguineous -Wound Margin Distinct, Distinct, Outline Outline Attached Attached -Granulation Amt Large (67-100%) Large (67-100%) -Granulation Quality Red Red -Necrosis Amt Small (1-33%) Small (1-33%) -Necrotic Tissue Type Adherent Slough Adherent Slough -Structure Exposed N/A N/A -Texture (Michelle-wound Skin Appearance) Scarring Scarring -Moisture (Michelle-wound Skin Appearance) No Abnormality Dry/Scaly -Color (Michelle-wound Skin Appearance) No Abnormality Hemosiderin Staining -Temperature (Michelle-wound Skin No Abnormality No Abnormality Appearance) (Pt Warm) (Pt Warm) -Tenderness on Palpation (Michelle-wound No No Skin Appearance) -Ulcer Cleansing Soap and Water Soap and Water -Foul Odor after Cleansing No No -Anesthetic Used 5% Lidocaine 5% Lidocaine Gel Gel WC - Nurse 2 - General Ulcer CM Notes Start: 06/30/22 08:16 Freq: Status: Active Protocol: Activity Type Activity Date Activity User E-sign Co-sign Detail Recorded Client Recorded Date Recorded By Document 06/30/22 09:08 ESTER [id number] 06/30/22 09:16 JF Edit Result 06/30/22 09:08 JF (1) [id number] 07/01/22 06:53 PL Document 07/14/22 09:24 JF [id number] 07/14/22 09:31 JF (1) #5- R ischium - Debridement, Muscle/Fascia, ea addt'l => 1 20sq cm or part thereof 06/30/22 07/14/22 09:08 09:24 Wound Center Nurse 2 #5- R ischium -Time 09:10 09:25 -Correct Patient Yes Yes -Correct Side, Site, Position Yes Yes -Correct Procedure Yes Yes -Procedure Performed Yes Yes -Type of Procedure Debridement Debridement -Clinical Debridement Muscle / Fascia Muscle / Fascia -Tissue Removed Muscle Muscle,Fascia -Post Debridement (cm) - Length 7 7.5 -Post Debridement (cm) - Width 5 4.8 -Post Debridement (cm) - Depth 3.7 3.7 -Total Square (Post) (cm) 35 36.00 -Area of Debridement (cm) - Length 7 7.5 -Area of Debridement (cm) - Width 5 4.8 -Total Square (Area) (cm) 35 36.00 -Tunneling No No -Undermining/Tunneling Yes Yes -Undermining/Tunneling Starts (O'clock 12 12 ) -Undermining/Tunneling Ends (O'clock) 3 3 -Maximum Distance (cm) 5.5 5.7 -Circular Undermining No No -Wound/Ulcer Outcome Not Healed Not Healed -Ulcer Cleansing Rinsed/ Rinsed/ Irrigated with Irrigated with Saline Saline -Foul Odor after Cleansing No No -Bioengineered Tissue No No -Bleeding Controlled with Pressure Pressure -Treatment Response Procedure Procedure Tolerated Well Tolerated Well -Offloading No No -Pressure Reduction Wheelchair cushion -Debridement - Muscle / Fascia, 1st Yes Yes 20sq cm -Debridement, Muscle/Fascia, ea addt'l 1 20sq cm or part thereof Pain Scale: 0-10 Numeric Is Patient Pain Free? Yes Yes WC - Nurse 3 - General Ulcer D/C NN Start: 06/30/22 08:16 Freq: Status: Active Protocol: Activity Type Activity Date Activity User E-sign Co-sign Detail Recorded Client Recorded Date Recorded By Document 06/30/22 09:31 PL [id number] 06/30/22 09:32 PL Document 07/14/22 09:47 DL [id number] 07/14/22 09:47 DL 06/30/22 07/14/22 09:31 09:47 Wound Care Center Nurse 3 #5- R ischium -Ulcer Cleansing Rinsed/ Rinsed/ Irrigated with Irrigated with Saline Saline -Foul Odor after Cleansing No No -Primary Dressing Applied Other -Other Dressing Dakins, ABD dakins -Primary Dressing Covered/Secured with Secured with Dry Gauze, Tape Secured with Tape -Other Covering ABD Treatment Response Procedure Tolerated Well Pain Scale: 0-10 Numeric Is Patient Pain Free? Yes Yes WC - Visit Discharge Discharge Condition Stable Stable Ambulatory Status Wheelchair Wheelchair Transportation Trans Facility Type Home Health Orders Sent Yes Assessment/Plan Assessment/Plan (1) Right ischial pressure sore, stage 4: CODE(S): L89.314 - Pressure ulcer of right buttock, stage 4 (2) Osteomyelitis of right side of pelvis: CODE(S): M86.9 - Osteomyelitis, unspecified (3) Bedridden: CODE(S): Z74.01 - Bed confinement status (4) Smoker: CODE(S): F17.200 - Nicotine dependence, unspecified, uncomplicated PLAN: Plan Patient evaluated at the wound center today. Wound care - Dakins 0.25% moistened gauze covered by ABD/super absorber daily and as needed. They have home health to help assist with his dressing changes. He is having increased pain with debridement. A wound culture was obtained today, 07/14/22.? A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 visit) Have you changed medications since your No last visit? Any new allergies or adverse reactions No Had a fall/change in ADL's that may No increase risk of falls Signs or symptoms of abuse and/or No neglect since last visit Have you been in the hospital since your No last visit? Has dressing in place as prescribed Yes Has compression in place as prescribed N/A Has offloadiing in place as prescribed Yes Experienced any changes in pain level or No management Left Footwear Regular Shoe Right Footwear Regular Shoe Pain Scale: 0-10 Numeric Is Patient Pain Free? Yes - Nurse 1 - General Ulcer Measurement Start: 06/09/22 08:13 Freq: Status: Active Protocol: Activity Type Activity Date Activity User E-sign Co-sign Detail Recorded Client Recorded Date Recorded By Document 06/09/22 08:15 [facility] [id number] 06/09/22 08:25 [facility] 06/09/22 08:15 Wound Center Nurse 1 #5- R ischium -Combined with other wound No -Current Size (cm) - Length 6.5 -Current Size (cm) - Width 6 -Current Size (cm) - Depth 4.5 -Total Square Cm 39.0 -Date of Last Picture (Recall this 06/09/22 field) -Photo Taken Yes -Epithelialization Small 1-33% -Tunneling No -Undermining/Tunneling No -Circular Undermining No -Exudate Amt Large -Exudate Type Serosanguineous -Wound Margin Distinct, Outline Attached -Granulation Amt Large (67-100%) -Granulation Quality Red -Slough/Fibrin Yes -Necrosis Amt Small (1-33%) -Necrotic Tissue Type Adherent Slough -Structure Exposed Bone -Texture (Michelle-wound Skin Appearance) Assessed, Scarring -Moisture (Michelle-wound Skin Appearance) Assessed -Color (Michelle-wound Skin Appearance) Assessed -Temperature (Michelle-wound Skin No Abnormality Appearance) (Pt Warm) -Tenderness on Palpation (Michelle-wound No Skin Appearance) -Ulcer Cleansing Soap and Water -Foul Odor after Cleansing No -Anesthetic Used 4% Lidocaine Solution WC - Nurse 2 - General Ulcer CM Notes Start: 06/09/22 08:13 Freq: Status: Active Protocol: Activity Type Activity Date Activity User E-sign Co-sign Detail Recorded Client Recorded Date Recorded By Document 06/09/22 08:45 [id number] 06/09/22 08:47 SETER 06/09/22 08:45 Wound Center Nurse 2 -Time 08:45 -Correct Patient Yes -Correct Side, Site, Position Yes -Correct Procedure Yes -Procedure Performed Yes -Type of Procedure Debridement -Clinical Debridement Muscle / Fascia -Tissue Removed Muscle,Fascia -Post Debridement (cm) - Length 6.5 -Post Debridement (cm) - Width 6.2 -Post Debridement (cm) - Depth 4.0 -Total Square (Post) (cm) 40.30 -Area of Debridement (cm) - Length 6.5 -Area of Debridement (cm) - Width 6.2 -Total Square (Area) (cm) 40.30 -Tunneling No -Undermining/Tunneling Yes -Undermining/Tunneling Starts (O'clock 12 ) -Undermining/Tunneling Ends (O'clock) 3 -Maximum Distance (cm) 5.2 -Circular Undermining No -Wound/Ulcer Outcome Not Healed -Ulcer Cleansing Rinsed/ Irrigated with Saline -Foul Odor after Cleansing No -Bioengineered Tissue No -Bleeding Controlled with Pressure -Treatment Response Procedure Tolerated Well -Offloading No -Pressure Reduction Wheelchair cushion -Debridement - Muscle / Fascia, 1st Yes 20sq cm Pain Scale: 0-10 Numeric Is Patient Pain Free? Yes - Nurse 3 - General Ulcer D/C NN Start: 06/09/22 08:13 Freq: Status: Active Protocol: Activity Type Activity Date Activity User E-sign Co-sign Detail Recorded Client Recorded Date Recorded By Document 06/09/22 08:53 [facility] [id number] 06/09/22 08:54 [facility] 06/09/22 08:53 Wound Care Center Nurse 3 #5- R ischium -Ulcer Cleansing Rinsed/ Irrigated with Saline -Foul Odor after Cleansing No -Primary Dressing Applied Hysept ($) -Other Dressing abd; drsg per dl data communications analyst -Primary Dressing Covered/Secured with Secured with Tape Treatment Response Procedure Tolerated Well Pain Scale: 0-10 Numeric Is Patient Pain Free? Yes WC - Visit Discharge Discharge Condition Stable Ambulatory Status Wheelchair Facility Type Home Health Assessment/Plan Assessment/Plan (1) Right ischial pressure sore, stage 4: CODE(S): L89.314 - Pressure ulcer of right buttock, stage 4 (2) Osteomyelitis of right side of pelvis: CODE(S): M86.9 - Osteomyelitis, unspecified (3) Bedridden: CODE(S): Z74.01 - Bed confinement status (4) Smoker: CODE(S): F17.200 - Nicotine dependence, unspecified, uncomplicated PLAN: Plan Patient evaluated at the wound center today. Wound care - Dakins 0.25% moistened gauze covered by ABD/super absorber daily and as needed. They have home health to help assist with his dressing changes. Operative tissue cultures positive for MSSA and Cutibacterium acnes. Bone cultures positive for MSSA and Corynebacterium striatum. He is being treated with Augmentin. He was seen in the ED on 05/02/22 because of a couple falls he experienced since his surgery. CT of his pelvis showed some bony disruption at the level of the inferior pubic ramus suggests a mild osteomyelitis. Prealbumin 13.4 on 04/29/22. Anticipate increased metabolic demands from the infection. Encourage nutritional supplementation with protein to help the healing process. He is scheduled for colostomy by Dr. Romero on 06/18/22. He has home health to assist with wound care. Follow up three weeks. Call or come in sooner if needed. 06/11/22 0832 <Electronically signed by Kemi Rubio NP LUBE MAN-C> Cosigner Signature (if applicable): CC: ~ Signed [facility] Work Phone: [phone]) 921-198202-27-2023 Progress note Author Kemi Rubio [facility] May 26, 2022 10:41am Note Date/Time May 26, 2022 10:38am [facility] [address] [place] [address] Progress Note - Wound Care 05/26/22 1032 MR#: [id number] Acct: [id number] Name: JORGE COVINGTON Rep #:[id number] 1 : 1955 66 From: Kemi santiago NP LUBE MAN-C PCP: Dr. Nathanael Cardona MD Status:RE G RCR Location: History of Present Illness Date of Service: 05/26/22 Chief Complaint: Right ischial pressure sore, Stage IV. History of Wound: This is a 66-year-old white male who presented to the wound healing center with complaints of pressure ulcer to right buttock area with extension to the right ischial bone. This started in October,. Patient's was treating with OTC creams and keeping area clean. The ulcer starting increasing in size and went to the Emergency Department on 02/08/22. CT showed subcutaneous and deep soft tissue involvement and possible early abscess formation. The bone was not addressed. He had a wound culture on 02/28/22. It was positive for E. coli, Staphylococcus aureus, and Clostridium perfringens. He was treated with Augmentin. The patient has very limited mobility as a result of a prior spine injury/surgery. He utilizes a wheelchair at all times and requires a billy lift to transfer to cot here. He sits in his wheelchair almost all day, not really able to change positions. They finally obtained a low air loss overlay to their regular mattress at home. A roho cushion was ordered for his wheelchair. Patient is a smoker. Surgery 04/28/22 - Excision right ischial pressure sore, Stage IV, with partial ostectomy for osteomyelitis. Size of wound 8 x 7 x 4.5 cm. Operative tissue cultures positive for MSSA and Cutibacterium acnes. Bone cultures positive for MSSA and Corynebacterium striatum. He is being treated with Augmentin. Prealbumin 13.4 on 04/29/22. He was seen in the ED on 05/02/22 because of a couple falls he experienced since his surgery. CT of his pelvis showed some bony disruption at the level of the inferior pubic ramus suggests a mild osteomyelitis. Anticipate increased metabolic demands from the infection. Encourage nutritional supplementation with protein to help the healing process. Today he denies fever. His appetite is ok. Progress of Wound: Ulcer is beefy pink. The ulcer is into the muscle and has bone palpable. Ulcer has slightly improved. Michelle wound is clear. They have a follow up with Dr. Romero tomorrow, 05/27 for consult for colostomy if there is improvement in his prealbumin. Patient states that he has been increasing his protein intake. He states that he is off loading and is in bed most of the time. Objective Data Objective Data Vital Signs: Vital Signs Temp Pulse Resp BP O2 Del Method 96.4 F L 82 16 111/61 Room Air 05/26/22 08:40 05/26/22 08:40 05/26/22 08:40 05/26/22 08:40 05/26/22 08:40 Oxygen Delivery Method Room Air Weight: 220 lb Body Mass Index (BMI) 35.5 Charges/Coding Procedures Integumentary 111xxx-113xx: 20666 Global Visit Debridement Note Debridement Note Wound debrided: Ischial ulcer Laterality: Right Wound Grade/Stage: Stage IV Type of Debridement: Excisional debridement Anesthesia Used: 5% Lidocaine Gel Depth: Down to and including healthy tissue, in the subcutaneous layer and to muscle Percentage of wound debrided: 100 Instrument Used: 7mm curette Tissue Removed: Devitalized tissue and slough into the muscle Severity: Fat Layer Exposed Amount of bleeding with debridement: Mild Bleeding Controlled with: Pressure and Compression and gauze Patient tolerated procedure: Patient tolerated procedure well Debridement Free Text: Ulcer into the muscle, bone palpable but not debrided. Post-Debridement Measurements and Additional Note: Post-Debridement Measurements/Treatment WC - Nurse 1 - General Ulcer Assessment Start: 05/05/22 10:54 Freq: Status: Active Protocol: WC.LOWEXT Activity Type Activity Date Activity User E-sign Co-sign Detail Recorded Client Recorded Date Recorded By Document 05/05/22 10:54 [facility] [id number] 05/05/22 10:57 BM Document 05/12/22 08:40 BMF [id number] 05/12/22 08:49 BMF Document 05/26/22 08:40 DL [id number] 05/26/22 08:42 DL 05/05/22 05/12/22 05/26/22 10:54 08:40 08:40 WC - Today's Visit Information Type of service Follow-up Visit Follow-up Visit Follow-up Visit (Physician/HEAD BAKER (Physician/HEAD BAKER (Physician/HEAD BAKER ) ) ) Arrival Mode Wheelchair Wheelchair Wheelchair Transfer Assistance Billy Lift Billy Lift Billy Lift Transfer Assist (Other) 2 2 Accompanied by Patient Identification Verified (Name & Yes Yes Yes ) Patient Requires Transmission-Based No No No Precautions Height and Weight Body Mass Index (BMI) 35.5 35.5 35.5 BMI Classification Obese Obese Obese Vital Signs Temperature (97.8 F-99.1 F) 97.2 F L 96.2 F L 96.4 F L Temperature Source Temporal Temporal Temporal Pulse Rate (60-100) 98 99 82 Pulse Location Monitor Monitor Monitor Respiratory Rate (12-18) 16 16 16 Respiratory rate source Observation Observation Observation Oxygen Delivery Method Room Air Room Air Room Air Blood Pressure (90/60-120/80) 146/86 H 118/62 111/61 Blood Pressure Mean (mm Hg) 106 80 77 Source Monitor Monitor Monitor Position Sitting Sitting Sitting Blood Pressure Location Left Arm Right Arm Left Arm History Since Last Visit- (Skip if this is Patient's initial visit) Have you changed medications since your No No No last visit? Any new allergies or adverse reactions No No No Had a fall/change in ADL's that may No No No increase risk of falls Signs or symptoms of abuse and/or No No No neglect since last visit Have you been in the hospital since your No No No last visit? Has dressing in place as prescribed Yes Yes Yes Has compression in place as prescribed N/A N/A N/A Has offloadiing in place as prescribed N/A N/A N/A Experienced any changes in pain level or No No No management Left Footwear Regular Shoe Regular Shoe Regular Shoe Right Footwear Regular Shoe Regular Shoe Regular Shoe Pain Scale: 0-10 Numeric Is Patient Pain Free? Yes Yes Yes WC - Nurse 1 - General Ulcer Measurement Start: 05/05/22 10:54 Freq: Status: Active Protocol: Activity Type Activity Date Activity User E-sign Co-sign Detail Recorded Client Recorded Date Recorded By Document 05/05/22 10:54 [facility] [id number] 05/05/22 10:57 BMF Document 05/12/22 08:40 BMF [id number] 05/12/22 08:49 BMF Document 05/26/22 08:40 DL [id number] 05/26/22 08:42 DL 05/05/22 05/12/22 05/26/22 10:54 08:40 08:40 Wound Center Nurse 1 #5- R ischium -Combined with other wound No No No -Current Size (cm) - Length 7.5 7 7 -Current Size (cm) - Width 8 6.6 6 -Current Size (cm) - Depth 6.3 4.9 6.2 -Total Square Cm 60.0 46.2 42 -Date of Last Picture (Recall this 05/05/22 05/12/22 05/26/22 field) -Photo Taken Yes Yes Yes -Epithelialization None Present None Present None Present -Tunneling No No No -Undermining/Tunneling Yes Yes No -Undermining/Tunneling Starts (O'clock 12 10 ) -Undermining/Tunneling Ends (O'clock) 3 12 -Maximum Distance (cm) 1.4 1 -Undermining/Tunneling Starts #2 (O' 1 clock) -Circular Undermining No -Exudate Amt Large Large Large -Exudate Type Serosanguineous Sanguineous Serosanguineous -Wound Margin Distinct, Distinct, Distinct, Outline Outline Outline Attached Attached Attached -Granulation Amt Large (67-100%) Large (67-100%) Large (67-100%) -Granulation Quality Red Red Red -Slough/Fibrin Yes Yes Yes -Necrosis Amt Small (1-33%) Small (1-33%) Small (1-33%) -Necrotic Tissue Type Adherent Slough Adherent Slough Adherent Slough -Structure Exposed Bone Bone -Texture (Michelle-wound Skin Appearance) Assessed, Assessed, Assessed, Scarring Scarring Scarring -Moisture (Michelle-wound Skin Appearance) Assessed Assessed Assessed -Color (Michelle-wound Skin Appearance) Assessed Assessed Assessed -Temperature (Michelle-wound Skin No Abnormality No Abnormality No Abnormality Appearance) (Pt Warm) (Pt Warm) (Pt Warm) -Tenderness on Palpation (Michelle-wound Yes No No Skin Appearance) -Ulcer Cleansing Soap and Water Soap and Water Soap and Water -Foul Odor after Cleansing No No No -Anesthetic Used 4% Lidocaine 4% Lidocaine 4% Lidocaine Solution Solution Solution WC - Nurse 2 - General Ulcer CM Notes Start: 05/05/22 10:54 Freq: Status: Active Protocol: Activity Type Activity Date Activity User E-sign Co-sign Detail Recorded Client Recorded Date Recorded By Document 05/05/22 11:08 [facility] [id number] 05/05/22 11:14 [facility] Document 05/12/22 09:05 [id number] 05/12/22 09:06 Document 05/26/22 09:42 [id number] 05/26/22 09:44 05/05/22 05/12/22 05/26/22 11:08 09:05 09:42 Wound Center Nurse 2 #5- R ischium -Time 09:05 09:42 -Correct Patient No Yes Yes -Correct Side, Site, Position No Yes Yes -Correct Procedure No Yes Yes -Procedure Performed No Yes Yes -Type of Procedure Debridement Debridement -Clinical Debridement Muscle / Fascia Muscle / Fascia -Tissue Removed Muscle,Fascia Muscle,Fascia -Post Debridement (cm) - Length 8.0 7.3 -Post Debridement (cm) - Width 7.5 8.0 -Post Debridement (cm) - Depth 4.6 5.0 -Total Square (Post) (cm) 60.00 58.40 -Area of Debridement (cm) - Length 8.0 7.3 -Area of Debridement (cm) - Width 7.5 8.0 -Total Square (Area) (cm) 60.00 58.40 -Tunneling No No -Undermining/Tunneling No No -Circular Undermining No No -Wound/Ulcer Outcome Not Healed Not Healed Not Healed -Ulcer Cleansing Rinsed/ Rinsed/ Rinsed/ Irrigated with Irrigated with Irrigated with Saline Saline Saline -Foul Odor after Cleansing No No No -Bioengineered Tissue No No No -Bleeding Controlled with NA Pressure Pressure -Treatment Response Procedure Procedure Tolerated Well Tolerated Well -Offloading No No No -Assistive Device(s) Wheelchair Wheelchair -Pressure Reduction Wheelchair Wheelchair cushion cushion, Mattress overlay -Debridement - Muscle / Fascia, 1st No Yes Yes 20sq cm -Debridement, Muscle/Fascia, ea addt'l 2 2 20sq cm or part thereof Pain Scale: 0-10 Numeric Is Patient Pain Free? No Yes Yes right ischial ulcer -Description Sharp -Intensity 10 -Duration (hours) Chronic -Pain Behavior Facial Grimacing -Pain Aggravating Factors ADL's,Changing Position, Surgery -Alleviating Factors/Interventions Medication -Effectiveness of Alleviating Factor/ Moderately Intervention effective WC - Nurse 3 - General Ulcer D/C NN Start: 05/05/22 10:54 Freq: Status: Active Protocol: Activity Type Activity Date Activity User E-sign Co-sign Detail Recorded Client Recorded Date Recorded By Document 05/05/22 11:20 [facility] [id number] 05/05/22 11:21 [facility] Document 05/12/22 09:15 ML [id number] 05/12/22 09:15 ML Document 05/26/22 09:47 DL [id number] 05/26/22 09:48 DL 05/05/22 05/12/22 05/26/22 11:20 09:15 09:47 Wound Care Center Nurse 3 #5- R ischium -Ulcer Cleansing Rinsed/ Rinsed/ Rinsed/ Irrigated with Irrigated with Irrigated with Saline Saline Saline -Foul Odor after Cleansing No No No -Other Dressing dakins moist DAKINS dakins gauze MOISTENED GAUZE -Primary Dressing Covered/Secured with Dry Gauze, Dry Gauze, Secured with Secured with Tape Tape -Other Covering abd; drsg per ABD ak data communications analyst Treatment Response Procedure Procedure Tolerated Well Tolerated Well Pain Scale: 0-10 Numeric Is Patient Pain Free? Yes Yes Yes WC - Visit Discharge Discharge Condition Stable Stable Ambulatory Status Wheelchair Wheelchair Transportation [facility] Accompanied by Facility Type Home Health Home Health Orders Sent Yes Assessment/Plan Assessment/Plan (1) Right ischial pressure sore, stage 4: CODE(S): L89.314 - Pressure ulcer of right buttock, stage 4 (2) Osteomyelitis of right side of pelvis: CODE(S): M86.9 - Osteomyelitis, unspecified (3) Bedridden: CODE(S): Z74.01 - Bed confinement status (4) Smoker: CODE(S): F17.200 - Nicotine dependence, unspecified, uncomplicated PLAN: Plan Patient evaluated at the wound center today. Wound care - Dakins 0.25% moistened gauze covered by ABD/super absorber daily and as needed. They have home health to help assist with his dressing changes. Operative tissue cultures positive for MSSA and Cutibacterium acnes. Bone cultures positive for MSSA and Corynebacterium striatum. He is being treated with Augmentin. He was seen in the ED on 05/02/22 because of a couple falls he experienced since his surgery. CT of his pelvis showed some bony disruption at the level of the inferior pubic ramus suggests a mild osteomyelitis. Prealbumin 13.4 on 04/29/22. Anticipate increased metabolic demands from the infection. Encourage nutritional supplementation with protein to help the healing process. He follows up with Dr. Romero tomorrow, 05/27, to see if he is eligible for colostomy. He has home health to assist with wound care. Follow up two weeks. Call or come in sooner if needed. 05/26/22 1041 <Electronically signed by Kemi Rubio LUBE MAN LUBE MAN-C> Cosigner Signature (if applicable): CC: ~ Signed [facility] Work Phone: [phone] Progress note Author Kemi Rubio [facility] May 14, 2022 5:43pm Note Date/Time May 12, 2022 11:40am [facility] [address] [place] [address] Progress Note - Wound Care 05/12/22 1140 MR#: [id number] Acct: [id number] Name: JORGE COVINGTON Jeannette Rep #:[id number] 5 : 1955 66 From: Kemi santiago LUBE MAN LUBE MAN-C PCP: Dr. Nathanael Cardona MD Status:RE G RCR Location: History of Present Illness Date of Service: 05/12/22 Chief Complaint: Right ischial pressure sore, Stage IV. History of Wound: This is a 66-year-old white male who presented to the wound healing center with complaints of pressure ulcer to right buttock area with extension to the right ischial bone. This started in October,. Patient's was treating with OTC creams and keeping area clean. The ulcer starting increasing in size and went to the Emergency Department on 02/08/22. CT showed subcutaneous and deep soft tissue involvement and possible early abscess formation. The bone was not addressed. He had a wound culture on 02/28/22. It was positive for E. coli, Staphylococcus aureus, and Clostridium perfringens. He was treated with Augmentin. The patient has very limited mobility as a result of a prior spine injury/surgery. He utilizes a wheelchair at all times and requires a billy lift to transfer to cot here. He sits in his wheelchair almost all day, not really able to change positions. They finally obtained a low air loss overlay to their regular mattress at home. A roho cushion was ordered for his wheelchair. Patient is a smoker. Surgery 04/28/22 - Excision right ischial pressure sore, Stage IV, with partial ostectomy for osteomyelitis. Size of wound 8 x 7 x 4.5 cm. Operative tissue cultures positive for MSSA and Cutibacterium acnes. Bone cultures positive for MSSA and Corynebacterium striatum. He is being treated with Augmentin. Prealbumin 13.4 on 04/29/22. He was seen in the ED on 05/02/22 because of a couple falls he experienced since his surgery. CT of his pelvis showed some bony disruption at the level of the inferior pubic ramus suggests a mild osteomyelitis. Anticipate increased metabolic demands from the infection. Encourage nutritional supplementation with protein to help the healing process. Today he denies fever. His appetite is ok. Progress of Wound: Ulcer is beefy pink. There is bone palpable. Ulcer is stable. They have a follow up with Dr. Romero on 05/27 for consult for colostomy if there is improvement in his prealbumin. Objective Data Objective Data Vital Signs: Vital Signs Temp Pulse Resp BP O2 Del Method 96.2 F L 99 16 118/62 Room Air 05/12/22 08:40 05/12/22 08:40 05/12/22 08:40 05/12/22 08:40 05/12/22 08:40 Oxygen Delivery Method Room Air Weight: 220 lb Body Mass Index (BMI) 35.5 Charges/Coding Procedures Integumentary 111xxx-113xx: 10648 Global Visit Debridement Note Debridement Note Wound debrided: Ischial ulcer Laterality: Right Wound Grade/Stage: Stage IV Type of Debridement: Excisional debridement Anesthesia Used: 5% Lidocaine Gel Depth: Down to and including healthy tissue, in the subcutaneous layer and to muscle Percentage of wound debrided: 100 Instrument Used: 7mm curette Tissue Removed: Devitalized tissue and slough into the muscle Severity: Fat Layer Exposed Amount of bleeding with debridement: Mild Bleeding Controlled with: Pressure and Compression and gauze Patient tolerated procedure: Patient tolerated procedure well Post-Debridement Measurements and Additional Note: Post-Debridement Measurements/Treatment - Nurse 1 - General Ulcer Assessment Start: 05/05/22 10:54 Freq: Status: Active Protocol: DILCIA.NORIS Activity Type Activity Date Activity User E-sign Co-sign Detail Recorded Client Recorded Date Recorded By Document 05/05/22 10:54 [facility] [id number] 05/05/22 10:57 [facility] Document 05/12/22 08:40 [facility] [id number] 05/12/22 08:49 [facility] 05/05/22 05/12/22 10:54 08:40 - Today's Visit Information Type of service Follow-up Visit Follow-up Visit (Physician/HEAD BAKER (Physician/HEAD BAKER ) ) Arrival Mode Wheelchair Wheelchair Transfer Assistance Billy Lift Billy Lift Transfer Assist (Other) 2 Accompanied by Patient Identification Verified (Name & Yes Yes ) Patient Requires Transmission-Based No No Precautions Height and Weight Body Mass Index (BMI) 35.5 35.5 BMI Classification Obese Obese Vital Signs Temperature (97.8 F-99.1 F) 97.2 F L 96.2 F L Temperature Source Temporal Temporal Pulse Rate (60-100) 98 99 Pulse Location Monitor Monitor Respiratory Rate (12-18) 16 16 Respiratory rate source Observation Observation Oxygen Delivery Method Room Air Room Air Blood Pressure (90/60-120/80) 146/86 H 118/62 Blood Pressure Mean (mm Hg) 106 80 Source Monitor Monitor Position Sitting Sitting Blood Pressure Location Left Arm Right Arm History Since Last Visit- (Skip if this is Patient's initial visit) Have you changed medications since your No No last visit? Any new allergies or adverse reactions No No Had a fall/change in ADL's that may No No increase risk of falls Signs or symptoms of abuse and/or No No neglect since last visit Have you been in the hospital since your No No last visit? Has dressing in place as prescribed Yes Yes Has compression in place as prescribed N/A N/A Has offloadiing in place as prescribed N/A N/A Experienced any changes in pain level or No No management Left Footwear Regular Shoe Regular Shoe Right Footwear Regular Shoe Regular Shoe Pain Scale: 0-10 Numeric Is Patient Pain Free? Yes Yes WC - Nurse 1 - General Ulcer Measurement Start: 05/05/22 10:54 Freq: Status: Active Protocol: Activity Type Activity Date Activity User E-sign Co-sign Detail Recorded Client Recorded Date Recorded By Document 05/05/22 10:54 [facility] [id number] 05/05/22 10:57 [facility] Document 05/12/22 08:40 [facility] [id number] 05/12/22 08:49 BM 05/05/22 05/12/22 10:54 08:40 Wound Center Nurse 1 #5- R ischium -Combined with other wound No No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 level of the inferior pubic ramus suggests a mild osteomyelitis. Diffuse muscle atrophy. Electronically Signed: Rolando Ocampo MD at 13:44 EST , Discharge Plan Triage Chief Complaint: Other, Pain/Inj ED Provider: Ted Singh Dx/Rx/DC Orders Clinical Impression: Right ischial pressure sore, stage 4, Osteomyelitis of right side of pelvis, Fall, CHI (closed head injury) Instructions: Osteomyelitis Dc, ED Head Injury (Adult) Prescriptions: No Action amoxicillin-pot clavulanate [Augmentin] 500-125 mg tablet 1 tab PO TID Qty: 63 1RF tamsulosin 0.4 MG capsule 0.4 mg PO BID baclofen 10 MG tablet 15 mg PO TID levothyroxine 125 MCG tablet 125 mcg PO DAILY icosapent ethyl [Vascepa] 1 gram Capsule 2 g PO BID acetaminophen 650 mg Tablet Extended Release 1,300 mg PO Q8H PRN (Reason: Pain) HySept 0.25 % Solution 1 applic topical DAILY 30 Days Qty: 400 1RF Protocol: *Topical Application Instructions APPLICATION INSTRUCTIONS: right ischial wound Edgar (with collagen) 7-7-1.5 gram Powder In Packet 1 packet PO BIDCM 30 Days Qty: 60 2RF oxycodone-acetaminophen [Percocet] 5-325 mg tablet 1 tab PO 4X/DAY PRN (Reason: pain (scale score 7-10)) 7 Days Qty: 28 0RF Primary Care Provider: Nathanael Cardona Referrals: Popeye Messina MD [Med Staff - Active Staff] - Keep Braxton appointment Nathanael Cardona MD [Primary Care Provider] - 1 Week Activity Restrictions/Additional Instructions: CT scan head and neck negative. CT pelvis also negative for fractures from yourfall and injury. Your wound cultures were reviewed additional cultures are sentout pending. Discussed with Dr. Messina in the ED continue your Augmentin you will be followed up on Thursday in wound care for reevaluation. Return if any worsening symptoms. Continue oxycodone as needed for pain. Disposition Disposition: Home, Self Care What to do if you have Problems For any increased pain, shortness of breath, bleeding, nausea or vomiting, chestpain, or any unexpected problems, contact your Primary Care Provider. Call [facility] ([phone]) or report to the closest Emergency Room. Call 911 if necessary. 05/02/22 1510 <Electronically signed by Ted Gonzalez> Cosigner Signature (if applicable): CC: Dr. Nathanael Cardona MD ~ Signed [facility] Work Phone: 1(485) 317-501601-27-2023 Progress note Author Cristy Verma [facility] April 25, 2022 9:15am Note Date/Time April 25, 2022 9 :02am [facility] [address] [place] [address] Progress Note - Wound Care 04/25/22 0856 MR#: [id number] Acct: [id number] Name: JORGE COVINGTON Rep #:[id number] 1 : 1955 66 From: Cristy GONZALEZ PCP: Dr. Nathanael Cardona MD Status:RE G RCR Location: History of Present Illness Date of Service: 04/25/22 Chief Complaint: Right ischial pressure sore, Stage IV. History of Wound: This started about 4 months ago but was much smaller in size. Patient's was treating with OTC creams and keeping area clean. She noted that the wound began to get much larger. Patient presented to the emergency roomon 02/[address] was performed which did reveal subcutaneous and deep soft tissue involvement and possible early abscess formation. The patient was also found to have UTI. He was started on 10 days of antibiotics (Augmentin and Bactrim) for both the wound and UTI which he has since completed. He has had a sacral pressure ulcer in the past, last seen here in the wound clinic in March 2018. The patient has very limited mobility as a result of a prior spine injury/surgery. He utilizes a wheelchair at all times and requires a billy lift to transfer to cot here. He sits in his wheelchair almost all day, not really able to change positions. He was not using an air mattress or any other off-loading device in his wheelchair or bed at home. He does continue to smoke but has been cutting back and is down to about 4-5 cigarettes a day. He is not diabetic, not on any blood thinner Progress of Wound: Wound continues to have good granulation tissues, stable appearance, to bone. Subjective Subjective Patient continues to do well with dressing changes at home with assistance of HHand . He denies F/C, N/V, diarrhea, increased pain, foul-smelling drainage. He completed regimen of cipro and flagyl. He was evaluated by Dr. Messina last week. He is scheduled for initial surgery next Thursday for operative debridement with plan to obtain samples for bone pathology. Objective Data Objective Data Vital Signs: Vital Signs Temp Pulse Resp BP O2 Del Method 96.6 F L 88 16 100/42 L Room Air 04/25/22 08:01 04/25/22 08:01 04/15/22 13:50 04/25/22 08:01 04/15/22 13:50 Oxygen Delivery Method Room Air Weight: 220 lb Body Mass Index (BMI) 35.5 Charges/Coding Visit Charges Office Visits / Consults: 24540 OV L1 Est Physical Exam Const alert, oriented x3 and no apparent distress HEENT normocephalic Head and Scalp: atraumatic Nose: external nose normal Eyes EOMs intact bilaterally General Eye: normal appearance of both eyes Neck full ROM and no lymphadenopathy General: trachea midline Resp normal respiratory effort Effort and Inspection: able to speak in complete sentences Cardio regular rate and regular rhythm Peripheral Pulses: brachial pulses present and radial pulses present Extremity Extremity Narrative: Patient has splints and knee high socks, not removed for examination of extremities. Skin Wounds: wounds noted Wound Narrative: Stage IV pressure ulcer extending to bone on the medial right buttock very closeto anus. Surrounding skin with nonblanching erythema and purple discoloration related to pressure injury. Wound bed appears overall beefy red granulation tissue with some slough. Epibole and undermining noted at the edges. Appears stable overall. Neuro oriented x3 and CN's II-XII intact bilaterally Neuro Narrative: Patient has significantly limited mobility secondary to spinal injury, utilizes wheelchair. Patient does have muscle spasms/twitches as a result of injury. Psych mental status grossly normal Appearance: disheveled Attitude: calm Activity / Motor Behavior: appropriate eye contact Speech: normal speech Mood & Affect: euthymic mood Debridement Note Debridement Note No debridement was completed: No debridement was completed today Post-Debridement Measurements and Additional Note: Post-Debridement Measurements/Treatment WC - Nurse 1 - General Ulcer Assessment Start: 04/10/22 13:06 Freq: Status: Active Protocol: KIRA Activity Type Activity Date Activity User E-sign Co-sign Detail Recorded Client Recorded Date Recorded By Document 04/10/22 13:21 DL [id number] 04/10/22 13:24 DL Document 04/15/22 13:50 BMF [id number] 04/15/22 13:57 BMF Document 04/25/22 08:01 VA [id number] 04/25/22 08:14 AK 04/10/22 04/15/22 04/25/22 13:21 13:50 08:01 WC - Today's Visit Information Type of service Follow-up Visit Follow-up Visit Follow-up Visit (Physician/HEAD BAKER (Physician/HEAD BAKER (Physician/HEAD BAKER ) ) ) Arrival Mode Wheelchair Wheelchair Wheelchair Transfer Assistance Billy Lift Billy Lift Billy Lift Patient Identification Verified (Name & Yes Yes Yes ) Patient Requires Transmission-Based No No No Precautions Safety Precautions NA Height and Weight Body Mass Index (BMI) 35.5 35.5 35.5 BMI Classification Obese Obese Obese Vital Signs Temperature (97.8 F-99.1 F) 97.3 F L 96.9 F L 96.6 F L Temperature Source Temporal Temporal Temporal Pulse Rate (60-100) 76 96 88 Pulse Location Monitor Monitor Monitor Respiratory Rate (12-18) 16 16 Respiratory rate source Observation Observation Oxygen Delivery Method Room Air Room Air Blood Pressure (90/60-120/80) 130/74 H 112/54 L 100/42 L Blood Pressure Mean (mm Hg) 92 73 61 Source Monitor Monitor Monitor Position Sitting Sitting Blood Pressure Location Right Arm Left Arm History Since Last Visit- (Skip if this is Patient's initial visit) Have you changed medications since your No No No last visit? Any new allergies or adverse reactions No No No Had a fall/change in ADL's that may No No No increase risk of falls Signs or symptoms of abuse and/or No No No neglect since last visit Have you been in the hospital since your No No No last visit? Has dressing in place as prescribed Yes Yes Yes Has compression in place as prescribed N/A N/A N/A Has offloadiing in place as prescribed N/A N/A Yes Experienced any changes in pain level or No No No management Left Footwear Regular Shoe Regular Shoe Regular Shoe Right Footwear Regular Shoe Regular Shoe Regular Shoe Pain Scale: 0-10 Numeric Is Patient Pain Free? Yes Yes No WC - Nurse 1 - General Ulcer Measurement Start: 04/10/22 13:06 Freq: Status: Active Protocol: Activity Type Activity Date Activity User E-sign Co-sign Detail Recorded Client Recorded Date Recorded By Document 04/10/22 13:21 DL [id number] 04/10/22 13:24 DL Document 04/15/22 13:50 [facility] [id number] 04/15/22 13:57 BMF Document 04/25/22 08:01 AK [id number] 04/25/22 08:14 AK 04/10/22 04/15/22 04/25/22 13:21 13:50 08:01 Wound Center Nurse 1 #5- R ischium -Combined with other wound No No No -Current Size (cm) - Length 5.5 6 7 -Current Size (cm) - Width 4.9 5.9 3.5 -Current Size (cm) - Depth 5.5 5.2 4.9 -Total Square Cm 26.95 35.4 24.5 -Date of Last Picture (Recall this 04/15/22 04/25/22 field) -Photo Taken Yes Yes -Epithelialization None Present None Present -Tunneling No No No -Undermining/Tunneling Yes Yes No -Undermining/Tunneling Starts (O'clock 1 5 ) -Undermining/Tunneling Ends (O'clock) 4 5 -Maximum Distance (cm) 2.2 0.8 -Circular Undermining No No -Classification - Thickness Full Thickness without Exposed Support Structure -Change in Wound Grade/Stage No -Exudate Amt Large Large Large -Exudate Type Serosanguineous Serosanguineous Yellow/Green -Wound Margin Distinct, Distinct, Distinct, Outline Outline Outline Attached Attached Attached -Granulation Amt Large (67-100%) Large (67-100%) Large (67-100%) -Granulation Quality Red Red [place],Red -Slough/Fibrin Yes Yes Yes -Necrosis Amt Small (1-33%) Small (1-33%) Small (1-33%) -Necrotic Tissue Type Adherent Slough Adherent Slough Adherent Slough -Structure Exposed Muscle -Texture (Michelle-wound Skin Appearance) Assessed, Assessed, No Abnormality, Scarring Scarring Assessed -Moisture (Michelle-wound Skin Appearance) Assessed Assessed No Abnormality, Assessed -Color (Michelle-wound Skin Appearance) Assessed Assessed No Abnormality, Assessed -Temperature (Michelle-wound Skin No Abnormality No Abnormality No Abnormality Appearance) (Pt Warm) (Pt Warm) (Pt Warm) -Tenderness on Palpation (Michelle-wound No No No Skin Appearance) -Ulcer Cleansing Soap and Water Soap and Water Soap and Water -Foul Odor after Cleansing No No No -Anesthetic Used 4% Lidocaine 4% Lidocaine 4% Lidocaine Solution Solution Solution WC - Nurse 2 - General Ulcer CM Notes Start: 04/10/22 13:06 Freq: Status: Active Protocol: Activity Type Activity Date Activity User E-sign Co-sign Detail Recorded Client Recorded Date Recorded By Document 04/10/22 13:51 MW [id number] 04/10/22 14:01 MW Document 04/15/22 14:47 JF [id number] 04/15/22 14:51 JF 04/10/22 04/15/22 13:51 14:47 Wound Center Nurse 2 #5- R ischium -Time 13:52 14:48 -Correct Patient Yes Yes -Correct Side, Site, Position Yes Yes -Correct Procedure Yes Yes -Procedure Performed Yes Yes -Type of Procedure Debridement Debridement -Clinical Debridement Subcutaneous Muscle / Fascia -Tissue Removed Subcutaneous Muscle,Fascia -Post Debridement (cm) - Length 5.9 6.5 -Post Debridement (cm) - Width 5.0 6.5 -Post Debridement (cm) - Depth 2.2 5.0 -Total Square (Post) (cm) 29.50 42.25 -Area of Debridement (cm) - Length 5.9 6.5 -Area of Debridement (cm) - Width 5.0 6.5 -Total Square (Area) (cm) 29.50 42.25 -Tunneling Yes No -Tunneling Position (O'clock) 2 -Tunneling Distance (cm) 5.0 -Tunneling Position #2 (O'clock) 4 -Tunneling Distance #2 (cm) 4.5 -Undermining/Tunneling Yes No -Undermining/Tunneling Starts (O'clock 12 ) -Undermining/Tunneling Ends (O'clock) 6 -Maximum Distance (cm) 1.4 -Circular Undermining No No -Wound/Ulcer Outcome Not Healed Not Healed -Ulcer Cleansing Rinsed/ Rinsed/ Irrigated with Irrigated with Saline Saline -Foul Odor after Cleansing No No -Bioengineered Tissue No No -Bleeding Controlled with Pressure Pressure -Treatment Response Procedure Procedure Tolerated Well Tolerated Well -Offloading No No -Pressure Reduction Wheelchair cushion -Debridement - Subq, 1st 20sq cm Yes -Debridement, SubQ, ea addt'l 20sq cm 1 or part thereof -Debridement - Muscle / Fascia, 1st Yes 20sq cm -Debridement, Muscle/Fascia, ea addt'l 2 20sq cm or part thereof Pain Scale: 0-10 Numeric Is Patient Pain Free? Yes Yes WC - Nurse 3 - General Ulcer D/C NN Start: 04/10/22 13:06 Freq: Status: Active Protocol: Activity Type Activity Date Activity User E-sign Co-sign Detail Recorded Client Recorded Date Recorded By Document 04/10/22 14:09 [facility] [id number] 04/10/22 14:11 BM Document 04/25/22 08:32 ML [id number] 04/25/22 08:34 ML 04/10/22 04/25/22 14:09 08:32 Wound Care Center Nurse 3 #5- R ischium -Ulcer Cleansing Rinsed/ Rinsed/ Irrigated with Irrigated with Saline Saline -Foul Odor after Cleansing No No -Primary Dressing Applied Mepilex Border -Other Dressing DAKINS MOIST daykins0.25, GAUZE DRSG PER moistened guaze DL LINSEED CAKE TRIMMER .abd -Primary Dressing Covered/Secured with Dry Gauze, Dry Gauze, Secured with Secured with Tape Tape -Mepilex Border 1 Treatment Response Procedure Tolerated Well Pain Scale: 0-10 Numeric Is Patient Pain Free? Yes Yes WC - Visit Discharge Discharge Condition Stable Ambulatory Status Wheelchair Transportation TRANSPORT Facility Type Home Health Assessment/Plan Assessment/Plan (1) Stage II pressure ulcer of sacral region: CODE(S): L89.152 - Pressure ulcer of sacral region, stage 2 PLAN: Plan Wound bed with good granulation tissue, beefy red appearance. No debridement performed today. Surgical debridement with Dr. Messina scheduled for Thursday. Continue to pack with dakins-soaked gauze, cover with foam pad silicone-bordereddressing. Completed cipro and flagyl without issue. Discussed with patient the importance of off-loading (change position every 2 hours at minimum and avoid pressure and friction to area if possible) to preventfurther injury and promote healing. He now has off-loading devices for his bed and chair. Also discussed importance of continuing to work towards smoking cessation and increasing protein within his diet to aid in healing. Following surgical debridement with Dr. Messina on Thursday, will transition wound care follow-up to Kemi Rubio CNP. 04/25/22 0915 <Electronically signed by Cristy GONZALEZ> Cosigner Signature (if applicable): CC: ~ Signed [facility] Work Phone: 1(870) 541-403501-20-2023 History and physical note Author Dr. Messina [facility] April 17, 2022 11:41pm Note Date/Time April 15, 2022 3 :40pm [facility] [address] [place] [address] H&P Exam - Wound Care 04/15/22 1533 MR#: [id number] Acct: [id number] Name: JORGE COVINGTON Rep #:[id number] : 1955 66 From: Popeye Walker PCP: Dr. Nathanael Cardona MD Status:RE G RCR Location: History of Present Illness Date of Service: 04/15/22 Chief Complaint: WOUND CENTER CONSULT Referring Provider: CARLOS Crouch. Supervisor Ticket Sales: Dr. Messina Right ischial pressure sore, Stage IV. History of Wound: This is a 62-year-old white male who presented to the wound healing center with complaints of pressure ulcer to right buttock area with extension to the right ischial bone. This started in October,. Patient's was treating with OTC creams and keeping area clean. The ulcer starting increasing in size and went to the Emergency Department on 02/08/22. CT showed subcutaneous and deep soft tissue involvement and possible early abscess formation. The bone was not addressed. He had a wound culture on 02/28/22. It was positive for E. coli, Staphylococcus aureus, and Clostridium perfringens. He was treated with Augmentin. The patient has very limited mobility as a result of a prior spine injury/surgery. He utilizes a wheelchair at all times and requires a billy lift to transfer to cot here. He sits in his wheelchair almost all day, not really able to change positions. They finally obtained a low air loss overlay to their regular mattress at home. A roho cushion was ordered for his wheelchair. Patient is a smoker. Anticipate increased metabolic demands from the infection. Encourage nutritional supplementation with protein to help the healing process. Today he denies fever. His appetite is ok. Progress of Wound: stable. good granulation tissue. extends to the ischial bone. [facility]LY [facility], [facility] Medical History Bedridden Pressure sore Right ischial pressure sore, stage 4 Smoker Home Medications baclofen 10 mg tablet 15 mg PO TID spasm 12/17/17 [History Last Taken Unknown] esomeprazole magnesium 40 mg capsule,delayed release (Nexium) 40 mg PO DAILY 12/17/17 [History Last Taken Unknown] levothyroxine 125 mcg tablet 125 mcg PO DAILY 12/17/17 [History Last Taken Unknown] tamsulosin 0.4 mg capsule 0.4 mg PO BID 12/17/17 [History Last Taken Unknown] acetaminophen 650 mg tablet 650 mg PO Q8H 02/08/22 [History Last Taken Unknown] icosapent ethyl 1 gram capsule (Vascepa) 2 g PO BID cholesterol 02/08/22 [History Last Taken Unknown] Lactobacillus rhamnosus GG 12 billion cell-inulin 200 mg capsule (cartmi) 1 cap PO DAILY 30 days #30 caps 03/11/22 [Rx Last Taken Unknown] ciprofloxacin HCl 500 mg tablet (Cipro) 500 mg PO BID #28 tabs 03/28/22 [Rx Last Taken Unknown] Allergy/AdvReac Type Severity Reaction Status Date / Time Environmental Allergies: Allergy NEEDS Verified 02/08/22 10:59 Uncoded FOLLOW-UP [dust] house dust Allergy Other Verified 02/28/22 09:49 pollen extracts Allergy NEEDS Verified 02/08/22 10:59 FOLLOW-UP Surgical History Hx of spinal surgery Social History Smoking Status: Heavy Smoker (>10/day) ROS ROS Narrative REVIEW OF SYSTEMS General - Denies fever, fatigue, and weight loss. Eyes - Denies cataracts and glaucoma. ENT - Denies nasal congestion and sore throat. Endocrine - Denies excessive thirst and urination. Skin - Denies suspicious lesions and skin cancer. Has a right ischial pressure sore, Stage IV. Musculoskeletal - Denies joint pain, joint stiffness, weakness of muscles and joints, back pain, and arthritis. Neuro - Denies headaches. Cardiovascular - Denies chest pain, fatigue, and shortness of breath with exertion. Psych - Denies anxiety and depression. Respiratory - Denies chronic cough and shortness of breath. Patient is a smoker. Gastrointestinal - Denies nausea, vomiting, diarrhea, and constipation. Hematologic - Denies abnormal bruising and bleeding. Genitourinary - Denies hematuria and urinary frequency. Vital Signs Vital Signs Vital Signs: 04/15/22 13:50 Temperature 96.9 F L Temperature Source Temporal Pulse Rate 96 Respiratory Rate 16 Blood Pressure 112/54 L Blood Pressure Mean 73 Blood Pressure Source Monitor Blood Pressure Position Sitting Blood Pressure Location Left Arm Oxygen Delivery Method Room Air Weight Weight: 220 lb Body Mass Index (BMI) 35.5 Physical Exam Narrative PHYSICAL EXAMINATION General - Alert and Oriented. HEENT - PERRL. EOMI. Neck - Supple and nontender. Lungs - Clear to auscultation. Heart - Regular rate and rhythm. Abdomen - Soft and nondistended. Buttocks - Right ischial pressure sore with extension down to the ischial bone, Stage IV. Good granulation tissue present. Very close to the anal opening, about 1.5 cm. Wound measures 6.5 x 6.5 x 5 cm. Extremities - No axillary adenopathy. Radial pulses are palpable. No inguinal adenopathy. Dorsalis pedis pulses are palpable. Neuro - CN II-XII grossly intact. Psych - Normal mood and affect. Debridement Note Debridement Note Wound debrided: #5 Right ischial area. Laterality: Right Wound Grade/Stage: IV. Type of Debridement: Excisional debridement Anesthesia Used: 4% Lidocaine Solution Depth: Down to and including healthy tissue, in the subcutaneous layer, to muscle and to bone (bone palpable but not exposed.) Percentage of wound debrided: 100 Instrument Used: 7mm curette Tissue Removed: subcutaneous tissue and muscle. Severity: Fat Layer Exposed (muscle is exposed. bone is palpable but not debrided.) Amount of bleeding with debridement: Mild Bleeding Controlled with: Pressure and Compression and gauze Patient tolerated procedure: Patient tolerated procedure well Post-Debridement Measurements and Additional Note: Post-Debridement Measurements/Treatment WC - Nurse 1 - General Ulcer Assessment Start: 04/10/22 13:06 Freq: Status: Active Protocol: WC.LOWEXT Activity Type Activity Date Activity User E-sign Co-sign Detail Recorded Client Recorded Date Recorded By Document 04/10/22 13:21 DL [id number] 04/10/22 13:24 DL Document 04/15/22 13:50 [facility] [id number] 04/15/22 13:57 BM 04/10/22 04/15/22 13:21 13:50 - Today's Visit Information Type of service Follow-up Visit Follow-up Visit (Physician/HEAD BAKER (Physician/HEAD BAKER ) ) Arrival Mode Wheelchair Wheelchair Transfer Assistance Billy Lift Billy Lift Patient Identification Verified (Name & Yes Yes ) Patient Requires Transmission-Based No No Precautions Height and Weight Body Mass Index (BMI) 35.5 35.5 BMI Classification Obese Obese Vital Signs Temperature (97.8 F-99.1 F) 97.3 F L 96.9 F L Temperature Source Temporal Temporal Pulse Rate (60-100) 76 96 Pulse Location Monitor Monitor Respiratory Rate (12-18) 16 16 Respiratory rate source Observation Observation Oxygen Delivery Method Room Air Room Air Blood Pressure (90/60-120/80) 130/74 H 112/54 L Blood Pressure Mean 92 73 Source Monitor Monitor Position Sitting Sitting Blood Pressure Location Right Arm Left Arm History Since Last Visit- (Skip if this is Patient's initial visit) Have you changed medications since your No No last visit? Any new allergies or adverse reactions No No Had a fall/change in ADL's that may No No increase risk of falls Signs or symptoms of abuse and/or No No neglect since last visit Have you been in the hospital since your No No last visit? Has dressing in place as prescribed Yes Yes Has compression in place as prescribed N/A N/A Has offloadiing in place as prescribed N/A N/A Experienced any changes in pain level or No No management Left Footwear Regular Shoe Regular Shoe Right Footwear Regular Shoe Regular Shoe Pain Scale: 0-10 Numeric Is Patient Pain Free? Yes Yes - Nurse 1 - General Ulcer Measurement Start: 04/10/22 13:06 Freq: Status: Active Protocol: Activity Type Activity Date Activity User E-sign Co-sign Detail Recorded Client Recorded Date Recorded By Document 04/10/22 13:21 DL [id number] 04/10/22 13:24 DL Document 04/15/22 13:50 [facility] [id number] 04/15/22 13:57 BMF 04/10/22 04/15/22 13:21 13:50 Wound Center Nurse 1 #5- R ischium -Combined with other wound No No -Current Size (cm) - Length 5.5 6 -Current Size (cm) - Width 4.9 5.9 -Current Size (cm) - Depth 5.5 5.2 -Total Square Cm 26.95 35.4 -Date of Last Picture (Recall this 04/15/22 field) -Photo Taken Yes -Epithelialization None Present None Present -Tunneling No No -Undermining/Tunneling Yes Yes -Undermining/Tunneling Starts (O'clock 1 5 ) -Undermining/Tunneling Ends (O'clock) 4 5 -Maximum Distance (cm) 2.2 0.8 -Circular Undermining No -Exudate Amt Large Large -Exudate Type Serosanguineous Serosanguineous -Wound Margin Distinct, Distinct, Outline Outline Attached Attached -Granulation Amt Large (67-100%) Large (67-100%) -Granulation Quality Red Red -Slough/Fibrin Yes Yes -Necrosis Amt Small (1-33%) Small (1-33%) -Necrotic Tissue Type Adherent Slough Adherent Slough -Texture (Michelle-wound Skin Appearance) Assessed, Assessed, Scarring Scarring -Moisture (Michelle-wound Skin Appearance) Assessed Assessed -Color (Michelle-wound Skin Appearance) Assessed Assessed -Temperature (Michelle-wound Skin No Abnormality No Abnormality Appearance) (Pt Warm) (Pt Warm) -Tenderness on Palpation (Michelle-wound No No Skin Appearance) -Ulcer Cleansing Soap and Water Soap and Water -Foul Odor after Cleansing No No -Anesthetic Used 4% Lidocaine 4% Lidocaine Solution Solution WC - Nurse 2 - General Ulcer CM Notes Start: 04/10/22 13:06 Freq: Status: Active Protocol: Activity Type Activity Date Activity User E-sign Co-sign Detail Recorded Client Recorded Date Recorded By Document 04/10/22 13:51 MW [id number] 04/10/22 14:01 MW Document 04/15/22 14:47 JF [id number] 04/15/22 14:51 JF 04/10/22 04/15/22 13:51 14:47 Wound Center Nurse 2 #5- R ischium -Time 13:52 14:48 -Correct Patient Yes Yes -Correct Side, Site, Position Yes Yes -Correct Procedure Yes Yes -Procedure Performed Yes Yes -Type of Procedure Debridement Debridement -Clinical Debridement Subcutaneous Muscle / Fascia -Tissue Removed Subcutaneous Muscle,Fascia -Post Debridement (cm) - Length 5.9 6.5 -Post Debridement (cm) - Width 5.0 6.5 -Post Debridement (cm) - Depth 2.2 5.0 -Total Square (Post) (cm) 29.50 42.25 -Area of Debridement (cm) - Length 5.9 6.5 -Area of Debridement (cm) - Width 5.0 6.5 -Total Square (Area) (cm) 29.50 42.25 -Tunneling Yes No -Tunneling Position (O'clock) 2 -Tunneling Distance (cm) 5.0 -Tunneling Position #2 (O'clock) 4 -Tunneling Distance #2 (cm) 4.5 -Undermining/Tunneling Yes No -Undermining/Tunneling Starts (O'clock 12 ) -Undermining/Tunneling Ends (O'clock) 6 -Maximum Distance (cm) 1.4 -Circular Undermining No No -Wound/Ulcer Outcome Not Healed Not Healed -Ulcer Cleansing Rinsed/ Rinsed/ Irrigated with Irrigated with Saline Saline -Foul Odor after Cleansing No No -Bioengineered Tissue No No -Bleeding Controlled with Pressure Pressure -Treatment Response Procedure Procedure Tolerated Well Tolerated Well -Offloading No No -Pressure Reduction Wheelchair cushion -Debridement - Subq, 1st 20sq cm Yes -Debridement, SubQ, ea addt'l 20sq cm 1 or part thereof -Debridement - Muscle / Fascia, 1st Yes 20sq cm -Debridement, Muscle/Fascia, ea addt'l 2 20sq cm or part thereof Pain Scale: 0-10 Numeric Is Patient Pain Free? Yes Yes WC - Nurse 3 - General Ulcer D/C NN Start: 04/10/22 13:06 Freq: Status: Active Protocol: Activity Type Activity Date Activity User E-sign Co-sign Detail Recorded Client Recorded Date Recorded By Document 04/10/22 14:09 [facility] [id number] 04/10/22 14:11 BMF 04/10/22 14:09 Wound Care Nurse 3 #5- R ischium -Ulcer Cleansing Rinsed/ Irrigated with Saline -Foul Odor after Cleansing No -Primary Dressing Applied Mepilex Border -Other Dressing DAKINS MOIST GAUZE DRSG PER DL LINSEED CAKE TRIMMER -Primary Dressing Covered/Secured with Dry Gauze, Secured with Tape -Mepilex Border 1 Treatment Response Procedure Tolerated Well Pain Scale: 0-10 Numeric Is Patient Pain Free? Yes WC - Visit Discharge Discharge Condition Stable Ambulatory Status Wheelchair Transportation TRANSPORT Facility Type Home Health Lab / Micro Data Attestation: I reviewed the patient's lab results. Charges/Coding Visit Charges Office Visits / Consults: 88126 OV L5 New (25 Modifier ICD-10 - L89.314, M86.9, Z74.01, F17.200) Procedures Integumentary 111xxx-113xx: 80505 Lillian musc/fascia 20 sq cm/< (ICD-10 - L89.314, M86.9, Z74.01, F17.200) Add On Codes: 42102 Lillian musc/fascia add-on (X2 units ICD-10 - L89.314, M86.9, Z74.01, F17.200) Assessment/Plan Assessment/Plan (1) Right ischial pressure sore, stage 4: CODE(S): L89.314 - Pressure ulcer of right buttock, stage 4 (2) Osteomyelitis of right side of pelvis: CODE(S): M86.9 - Osteomyelitis, unspecified (3) Bedridden: CODE(S): Z74.01 - Bed confinement status (4) Smoker: CODE(S): F17.200 - Nicotine dependence, unspecified, uncomplicated PLAN: Plan Medical records reviewed. Cultures reviewed. Labs and x-rays and CT reviewed. Will continue the Dakin's dressing changes to the right ischial pressure sore. Patient has a right ischial pressure sore that extends down to the ischial bone, Stage IV. It is very close to the anal opening, about 1.5 cm. Recommend excision of this pressure sore along with partial ostectomy for osteomyelitis. The excision will make the ulcer bigger. Will try and place a VAC into the pressure sore after surgery. It may be difficult because of the close proximity to the anal opening. At the time of the surgery he will spend the night in the hospital with a surgical observation overnight stay. At that time, will obtain a General Surgery evaluation for a diverting colostomy before discharge. The colostomy can then be scheduled electively. Because the patient is prone when I proceed with my surgery, I would have to wait at least 3 weeks to allow the stoma to mature. I suspect osteomyelitis and the need for care home IV antibiotics through the use of a PICC line. The patient just obtained a low air loss overlay to his mattress at home. He needs a low air loss bed because of the severity of the pressure sore extending down to and probably involving the bone. While in hospital, I will order a CT Pelvis to look for evidence of osteomyelitis. Will check a Prealbumin and encourage nutritional supplementation with protein to help the healing process. He had a wound culture on 02/28/22. It was positive for E. coli, Staphylococcus aureus, and Clostridium perfringens. He was treated with Augmentin. After excision of the pressure sore, will need to control the infection with antibiotics, maximize his nutrition by checking a Prealbumin monthly before considering wound reconstruction with muscle flaps. Anticipate 6-12 months. Will schedule the surgery in the next 1-2 weeks. Patient was informed of the risks and complications of the procedure including alternatives to surgery. These were discussed with the patient personally. Patient voices understanding and wishes to proceed. Potential risks and complications included but not inclusive of bleeding, infection seroma, hematoma, bruising, swelling, prolonged need for drains, loss of sensation to skin, partial or complete loss of skin flap and/or nipple graft, wound breakdown, need for wound care, poor scarring, poor aesthetic outcome, intra operative cardiac or neurologic events, DVT, PE, and reaction to anesthesia. Encouraged patient to stop smoking as it may have deleterious effects on wound healing. 04/17/22 7298 <Electronically signed by Popeye Messina MD> Cosigner Signature (if applicable): CC: ~ Signed [facility] Work Phone: 1(774) 430-738801-12-2023 Progress note Author Cristy Verma [facility] April 10, 2022 4:47pm Note Date/Time April 10, 2022 4 :47pm [facility] [address] [place] [address] Progress Note - Wound Care 04/10/22 1633 MR#: [id number] Acct: [id number] Name: JORGE COVINGTON Rep #:[id number] : 1955 66 From: Cristy GONZALEZ PCP: Dr. Nathanael Cardona MD Status:RE G RCR Location: History of Present Illness Date of Service: 04/10/22 Chief Complaint: Pressure ulcer to right buttock History of Wound: This is a 62-year-old white male who presents to the wound healing center today with complaints of pressure ulcer to right buttock. He is accompanied by his who supplements much of the history. This started about 3 months ago but was much smaller in size. Patient's was treating with OTC creams and keeping area clean. A couple weeks ago she noted that the wound beganto get much larger. Patient presented to the emergency room on 02/[address] was performed which did reveal subcutaneous and deep soft tissue involvement andpossible early abscess formation. The patient was also found to have UTI. He wasstarted on 10 days of antibiotics (Augmentin and Bactrim) for both the wound andUTI which he has since completed. He has had a sacral pressure ulcer in the past, last seen here in the wound clinic in March 2018. The patient has very limited mobility as a result of a prior spine injury/surgery. He utilizes a wheelchair at all times and requires a billy lift to transfer to cot here. He sits in his wheelchair almost all day, not really able to change positions. He was not using an air mattress or any other off-loading device in his wheelchair or bed at home. He does continue to smoke but has been cutting back and is down to about 4-5 cigarettes a day. He is not diabetic, not on any blood thinners. Subjective Subjective Patient did not present to the wound center last week, transportation issues. Hereports dressing changes have been going well -- performed by HH and/or his wifedaily or more often as needed. He does report that he has trouble with both his bowels and bladder which at times cause contamination, he does his best to cleanbut has to wait until his is home to fully change the dressing. He has received the off-loading pad that was intended for his wheelchair. He states it is too big for the wheelchair, but fits well in his recliner at home so he has it there. He spends most of his time between his recliner and bed whenhe is at home, so this works well. He also received a new off-loading mattress for his bed. He reports both of these feel more comfortable. He also continues to change position as best he can throughout the day, he transfers himself at home. He has been tolerating the cipro and flagyl well, no diarrhea or other adverse effects. He denies F/C, N/V, increased pain, drainage, or foul odor. Objective Data Objective Data Vital Signs: Vital Signs Temp Pulse Resp BP O2 Del Method 97.3 F L 76 16 130/74 H Room Air 04/10/22 13:21 04/10/22 13:21 04/10/22 13:21 04/10/22 13:21 04/10/22 13:21 Oxygen Delivery Method Room Air Weight: 220 lb Body Mass Index (BMI) 35.5 Charges/Coding Wound Center CF Procedures 96XXX-98XXX: 87933 RMVL DEVITAL TIS 20 CM/< Multi Select Codes Wound Center CF Procedures 96XXX-98XXX: 55579 RMVL DEVITAL TIS 20 CM/< Physical Exam Const alert, oriented x3 and no apparent distress HEENT normocephalic Head and Scalp: atraumatic Nose: external nose normal Eyes EOMs intact bilaterally General Eye: normal appearance of both eyes Neck full ROM and no lymphadenopathy General: trachea midline Resp normal respiratory effort Effort and Inspection: able to speak in complete sentences Cardio regular rate and regular rhythm Peripheral Pulses: brachial pulses present and radial pulses present Extremity Extremity Narrative: Patient has splints and knee high socks, not removed for examination of extremities. Skin Wounds: wounds noted Wound Narrative: Pressure ulcer noted on the medial right buttock near the gluteal fold/anus. Surrounding skin with nonblanching erythema and purple discoloration related to pressure injury. No foul-smelling purulent drainage noted or expressed. Wound bed appears overall beefy red granulation tissue with some slough. Epibole and undermining noted at the edges. There is tunneling of about centrally, does not feel like it goes to bone. Irritation to the periwound area seems improved from last visit. Appears stable overall. Neuro oriented x3 and CN's II-XII intact bilaterally Neuro Narrative: Patient has significantly limited mobility secondary to spinal injury, utilizes wheelchair. Patient does have muscle spasms/twitches as a result of injury. Psych mental status grossly normal Appearance: disheveled Attitude: calm Activity / Motor Behavior: appropriate eye contact Speech: normal speech Mood & Affect: euthymic mood Debridement Note Debridement Note Wound debrided: Right buttock pressure ulcer Laterality: Right Type of Debridement: Excisional debridement Anesthesia Used: 5% Lidocaine Gel Depth: Down to and including healthy tissue and in the subcutaneous layer Percentage of wound debrided: 100 Instrument Used: 3mm curette Tissue Removed: slough, devitalized tissue Severity: Fat Layer Exposed Amount of bleeding with debridement: Mild Bleeding Controlled with: Pressure Patient tolerated procedure: Patient tolerated procedure well Post-Debridement Measurements and Additional Note: Post-Debridement Measurements/Treatment WC - Nurse 1 - General Ulcer Assessment Start: 04/10/22 13:06 Freq: Status: Active Protocol: KIRA Activity Type Activity Date Activity User E-sign Co-sign Detail Recorded Client Recorded Date Recorded By Document 04/10/22 13:21 DL [id number] 04/10/22 13:24 DL 04/10/22 13:21 WC - Today's Visit Information Type of service Follow-up Visit (Physician/HEAD BAKER ) Arrival Mode Wheelchair Transfer Assistance Billy Lift Patient Identification Verified (Name & Yes ) Patient Requires Transmission-Based No Precautions Height and Weight Body Mass Index (BMI) 35.5 BMI Classification Obese Vital Signs Temperature (97.8 F-99.1 F) 97.3 F L Temperature Source Temporal Pulse Rate (60-100) 76 Pulse Location Monitor Respiratory Rate (12-18) 16 Respiratory rate source Observation Oxygen Delivery Method Room Air Blood Pressure (90/60-120/80) 130/74 H Blood Pressure Mean (mm Hg) 92 Source Monitor Position Sitting Blood Pressure Location Right Arm History Since Last Visit- (Skip if this is Patient's initial visit) Have you changed medications since your No last visit? Any new allergies or adverse reactions No Had a fall/change in ADL's that may No increase risk of falls Signs or symptoms of abuse and/or No neglect since last visit Have you been in the hospital since your No last visit? Has dressing in place as prescribed Yes Has compression in place as prescribed N/A Has offloadiing in place as prescribed N/A Experienced any changes in pain level or No management Left Footwear Regular Shoe Right Footwear Regular Shoe Pain Scale: 0-10 Numeric Is Patient Pain Free? Yes - Nurse 1 - General Ulcer Measurement Start: 04/10/22 13:06 Freq: Status: Active Protocol: Activity Type Activity Date Activity User E-sign Co-sign Detail Recorded Client Recorded Date Recorded By Document 04/10/22 13:21 DL [id number] 04/10/22 13:24 DL 04/10/22 13:21 Wound Center Nurse 1 #5- R BUTTOCK -Combined with other wound No -Current Size (cm) - Length 5.5 -Current Size (cm) - Width 4.9 -Current Size (cm) - Depth 5.5 -Total Square Cm 26.95 -Epithelialization None Present -Tunneling No -Undermining/Tunneling Yes -Undermining/Tunneling Starts (O'clock 1 ) -Undermining/Tunneling Ends (O'clock) 4 -Maximum Distance (cm) 2.2 -Circular Undermining No -Exudate Amt Large -Exudate Type Serosanguineous -Wound Margin Distinct, Outline Attached -Granulation Amt Large (67-100%) -Granulation Quality Red -Slough/Fibrin Yes -Necrosis Amt Small (1-33%) -Necrotic Tissue Type Adherent Slough -Texture (Michelle-wound Skin Appearance) Assessed, Scarring -Moisture (Michelle-wound Skin Appearance) Assessed -Color (Michelle-wound Skin Appearance) Assessed -Temperature (Michelle-wound Skin No Abnormality Appearance) (Pt Warm) -Tenderness on Palpation (Michelle-wound No Skin Appearance) -Ulcer Cleansing Soap and Water -Foul Odor after Cleansing No -Anesthetic Used 4% Lidocaine Solution WC - Nurse 2 - General Ulcer CM Notes Start: 04/10/22 13:06 Freq: Status: Active Protocol: Activity Type Activity Date Activity User E-sign Co-sign Detail Recorded Client Recorded Date Recorded By Document 04/10/22 13:51 MW [id number] 04/10/22 14:01 MW 04/10/22 13:51 Wound Center Nurse 2 -Time 13:52 -Correct Patient Yes -Correct Side, Site, Position Yes -Correct Procedure Yes -Procedure Performed Yes -Type of Procedure Debridement -Clinical Debridement Subcutaneous -Tissue Removed Subcutaneous -Post Debridement (cm) - Length 5.9 -Post Debridement (cm) - Width 5.0 -Post Debridement (cm) - Depth 2.2 -Total Square (Post) (cm) 29.50 -Area of Debridement (cm) - Length 5.9 -Area of Debridement (cm) - Width 5.0 -Total Square (Area) (cm) 29.50 -Tunneling Yes -Tunneling Position (O'clock) 2 -Tunneling Distance (cm) 5.0 -Tunneling Position #2 (O'clock) 4 -Tunneling Distance #2 (cm) 4.5 -Undermining/Tunneling Yes -Undermining/Tunneling Starts (O'clock 12 ) -Undermining/Tunneling Ends (O'clock) 6 -Maximum Distance (cm) 1.4 -Circular Undermining No -Wound/Ulcer Outcome Not Healed -Ulcer Cleansing Rinsed/ Irrigated with Saline -Foul Odor after Cleansing No -Bioengineered Tissue No -Bleeding Controlled with Pressure -Treatment Response Procedure Tolerated Well -Offloading No -Debridement - Subq, 1st 20sq cm Yes -Debridement, SubQ, ea addt'l 20sq cm 1 or part thereof Pain Scale: 0-10 Numeric Is Patient Pain Free? Yes - Nurse 3 - General Ulcer D/C NN Start: 04/10/22 13:06 Freq: Status: Active Protocol: Activity Type Activity Date Activity User E-sign Co-sign Detail Recorded Client Recorded Date Recorded By Document 04/10/22 14:09 [facility] [id number] 04/10/22 14:11 [facility] 04/10/22 14:09 Wound Care Nurse 3 #5- R BUTTOCK -Ulcer Cleansing Rinsed/ Irrigated with Saline -Foul Odor after Cleansing No -Primary Dressing Applied Mepilex Border -Other Dressing DAKINS MOIST GAUZE DRSG PER DL LINSEED CAKE TRIMMER -Primary Dressing Covered/Secured with Dry Gauze, Secured with Tape -Mepilex Border 1 Treatment Response Procedure Tolerated Well Pain Scale: 0-10 Numeric Is Patient Pain Free? Yes - Visit Discharge Discharge Condition Stable Ambulatory Status Wheelchair Transportation TRANSPORT Facility Type Home Health Assessment/Plan Assessment/Plan (1) Stage II pressure ulcer of sacral region: CODE(S): L89.152 - Pressure ulcer of sacral region, stage 2 PLAN: Plan Patient was evaluated in the wound center and debridement was performed. Wound bed has beefy red granulation tissue with some slough, significant tunnelling and undermining as noted above, appears overall stable from last visit. Continue dakins-soaked gauze packed into tunnels, wound bed covered with dry gauze and then silicone border dressing applied over top. The periwound skin irritation seems to have resolved with the silicone bordered dressing. Stool cultures were negative for C. diff. He has been tolerating the cipro and flagyl regimen without issue. After completion of cipro/flagyl, would like to attempt to again start the linezolid to address staph. If no success, would consider referral to ID. He is scheduled to consult with Dr. Messina on Thursday. Appreciate his input. Discussed with patient the importance of off-loading (change position every 2 hours at minimum and avoid pressure and friction to area if possible) to preventfurther injury and promote healing. He now has off-loading devices, I hope thesewill help. Also discussed importance of continuing to work towards smoking cessation and increasing protein within his diet to aid in healing. Patient will return to clinic in 1 week for wound care follow-up. He will returnsooner or report to the emergency department should symptoms worsen or new symptoms or signs of infection arise. 04/10/221646 <Electronically signed by Cristy GONZALEZ> Cosigner Signature (if applicable): CC: ~ Signed [facility] Work Phone: [phone]) 774-516102-27-2021 NotePatient Outreach (COVAMN) JORGE COVINGTON ([id number]) 1955 M Date Time Provider Department 05/26/20 CRISTY WASHBURN During your visit today, we recorded the following information about you: Allergies As of Date: 05/26/2020 Noted Allergy Reaction DUST 06/02/2018 14 - Other: See Comments Comments: sneezing MOLD SPORES 06/02/2018 9 - Itching 14 - Other: See Comments Comments: Sneezing Date Reviewed: 02/02/2019 Reviewed by: Shamika Lowe) JAZZY Goldstein - Fully Assessed Order(s):SARS-COVID VACCINE 1ST DOSE APPT [[id number]] Order #: [id number] FUTURE Prescriptions as of 05/26/2020 Sig: PANTOPRAZOLE [...] pneumoniae (HCC) [*01/23/2019 More... Encounter Status:Closed by [employer], PRODUSER on 05/29/20[facility] Discharge summary Author Brooke Lerma [facility] November 24, 2022 3:35pm Note Date/Time November 24, 2022 3: 24pm [facility] Medical Records Department [address] [place] [id number] Discharge Summary 11/24/22 1522 MR#: [id number] Acct: [id number] Name: JORGE COVINGTON Rep #:[id number] : 1955 67 From: Brooke KEVINC PCP: Dr. Nathanael Cardona MD Status:AD M IN Location: [address] Providers Date of Admission: 11/21/22 Primary Care Physician: Dr. Nathanael Cardona MD Consultations 11/22/22 05:43 Consult: Onc/Wound/[employer] rep[employer]r Routine Comment: Reason for Consult:: new Colostomy/ buttock wound Reason For Visit: LAP DIVERTING SIGMOID COLOSTOMY Diagnosis Discharge Diagnosis (1) S/P colostomy: Status: Acute Code(s): Z93.3 - Colostomy status Medications at Discharge Home Medications baclofen 10 mg tablet 15 mg PO TID spasm 12/17/17 levothyroxine 125 mcg tablet 125 mcg PO DAILY 12/17/17 tamsulosin 0.4 mg capsule 0.4 mg PO BID 12/17/17 icosapent ethyl 1 gram capsule (Vascepa) 2 g PO BID cholesterol 02/08/22 acetaminophen 650 mg tablet,extended release 1,300 mg PO Q8H PRN Pain 04/25/22 arginine 7 gram-glutam 7 gram-CaHMB 1.5 muas-dazxs-at-min oral pwd pkt (Edgar (with collagen)) 1 packet PO BIDCM 30 days #60 ea 04/30/22 sodium hypochlorite 0.25 % solution (HySept) 1 applic topical DAILY 30 days #400mL 04/30/22 esomeprazole magnesium 40 mg capsule,delayed release (Nexium) 40 mg PO DAILY 06/16/22 amoxicillin 875 mg-potassium clavulanate 125 mg tablet 1 tab PO BID wound 14 days #28 tabs 11/14/22 Hospital Course Operations - (Laparoscopic diverting end colostomy) Summary of Care Provided Hospital Course: Patient is a 67 y/o M who presented for an elective diverting colostomy. Dr. Romero performed a laparoscopic diverting end colostomy on 11/21/22. Patient had an uneventful hospitalization. Upon discharge, patient tolerated his diet. He had positive air within the stoma bag and liquidy stool output. Patient and his were taught how to take care of the stoma by Nohemy. Patient and spouse denyany further questions and concerns. Weight / BMI Weight Weight: 149 lb 14.629 oz Body Mass Index (BMI) 24.2 ABG / Lab / Microbiology Data 10/17/22 07:32 10/17/22 07:32 Meaningful Use Info Meaningful Use Diagnoses (Choose all that apply): None applicable Discharge Plan Admission Admit Date/Time: 11/21/22 16:29 Primary Reason for Your Visit: Diverting colostomy Attending Provider: Kari Romero Primary Care Provider: Nathanael Cardona Discharge Orders/Prescriptions Prescriptions: Continued tamsulosin 0.4 MG capsule 0.4 mg PO BID baclofen 10 MG tablet 15 mg PO TID levothyroxine 125 MCG tablet 125 mcg PO DAILY icosapent ethyl [Vascepa] 1 gram Capsule 2 g PO BID acetaminophen 650 mg Tablet Extended Release 1,300 mg PO Q8H PRN (Reason: Pain) HySept 0.25 % Solution 1 applic topical DAILY 30 Days Qty: 400 1RF Protocol: *Topical Application Instructions APPLICATION INSTRUCTIONS: right ischial wound Edgar (with collagen) 7-7-1.5 gram Powder In Packet 1 packet PO BIDCM 30 Days Qty: 60 2RF esomeprazole magnesium [Nexium] 40 mg Capsule,Delayed Release(Dr/Ec) 40 mg PO DAILY amoxicillin-pot clavulanate 875-125 mg tablet 1 tab PO BID 14 Days Qty: 28 1RF Other Ambulatory Orders: 12 Lead EKG (Routine) Timeframe: 20221017 Location: None Selected Ordered By: Dr. Gera Smith Referrals / Follow Up: Kari Romero MD [Med Staff - Active Staff] - (Please call to schedule a follow-up for 2 weeks post-operatively) Care Physician,No Primary [Non-Staff] - Disposition Disposition (needs filled in before D/C Order can be placed): Home, Self Care 11/24/22 1535 <Electronically signed by Brooke GONZALEZ PA-C> Cosigner Signature (if applicable): CC: HENOK Lerma; Dr. Nathanael Cardona MD~ Signed [facility] Work Phone: Discharge summary Author Brooke Lerma [facility] November 24, 2022 3:34pm Note Date/Time November 24, 2022 3: 34pm [facility] Medical Records Department [address] [place] [id number] Instructions for Home/Discharge Instructions 11/24/22 1532 MR#: [id number] Acct: [id number] Name: JORGE COVINGTON Rep #:[id number] : 1955 67 From: Brooke GONZALEZ PA-C PCP: Dr. Nathanael Cardona MD Status:AD M IN Discharge Instructions Diet Discharge Diet: Light diet - advance as tolerated Activity Lifting Restrictions: 15 pounds for 2 weeks Dressing / Incision Call your doctor if your incision/area has: Continuous Slow Oozing, Sudden Increased Bleeding, Increased Pain/ Swelling, Increased Redness, Foul Smelling Discharge and Swelling at the incision site Call your doctor if you observe: Fever of 101 or Higher Cleanse incision/area with: Soap & Water Follow Up Care Please Follow Up With: Kari Romero MD When: Follow-up in 2 weeks. Call [phone] for an appointment Test Results: Test results from this visit will be discussed in further detail at your follow- up appointment, if applicable. Discharge Plan Admission Admit Date/Time: 11/21/22 16:29 Primary Reason for Your Visit: Diverting colostomy Attending Provider: Kari Romero Primary Care Provider: Nathanael Cardona Discharge Orders/Prescriptions Prescriptions: Continued tamsulosin 0.4 MG capsule 0.4 mg PO BID baclofen 10 MG tablet 15 mg PO TID levothyroxine 125 MCG tablet 125 mcg PO DAILY icosapent ethyl [Vascepa] 1 gram Capsule 2 g PO BID acetaminophen 650 mg Tablet Extended Release 1,300 mg PO Q8H PRN (Reason: Pain) HySept 0.25 % Solution 1 applic topical DAILY 30 Days Qty: 400 1RF Protocol: *Topical Application Instructions APPLICATION INSTRUCTIONS: right ischial wound Edgar (with collagen) 7-7-1.5 gram Powder In Packet 1 packet PO BIDCM 30 Days Qty: 60 2RF esomeprazole magnesium [Nexium] 40 mg Capsule,Delayed Release(Dr/Ec) 40 mg PO DAILY amoxicillin-pot clavulanate 875-125 mg tablet 1 tab PO BID 14 Days Qty: 28 1RF Other Ambulatory Orders: 12 Lead EKG (Routine) Timeframe: 20221017 Location: None Selected Ordered By: Dr. Gera Smith Referrals / Follow Up: Kari Romero MD [[facility] Staff - Active Staff] - (Please call to schedule a follow-up for 2 weeks post-operatively) Care Physician,No Primary [Non-Staff] - Disposition Disposition (needs filled in before D/C Order can be placed): Home, Self Care 11/24/22 1534<Electronically signed by Brooke GONZALEZ PA-C>Brooke GONZALEZ PA-C CC: Dr. Nathanael Cardona MD ~ Signed [facility] Work Phone: Discharge summary Author Hebert Saavedra [facility] Note Date/Time June 09, 2024 11: 32am [facility] Medical Records Department [address] [place] [address] Emergency Department Summary 06/09/24 MR#: [id number] Acct: [id number] Name: JORGE COVINGTON Rep #:[id number] : 1955 68 From: Hebert Saavedra MD PCP: Dr. Nathanael Cardona MD Status:RE G ER Location: ED HPI History of Present Illness Chief Complaint: Shortness of Breath Detail of Chief Complaint: Squad was called for lift assist. He was noted to behypoxic, febrile, tac Informant: patient and EMS Onset/Context/Timing Onset: Today Context: Sudden Onset Timing: Intermittent Quality: Called for lift assist Location: Presents from home Current Severity: Not applicable Maximum Severity: Not applicable Worsened by: Patient has been bedridden since 1984 Relieved by: Not applicable Associated Symptoms Associated Symptoms: Per squad febrile, tachycardic and tachypneic with a low pulse ox Narrative Narrative: Patient is a 68-year-old male. He is paraplegic due to spinal paralysis. He has been bedridden since 1984. He has a nonhealing ulcer right buttocks near the gluteal crease. He states his looked at the wound earlier this morning. He was last seen at the wound center on Thursday. He was a smoker until 1 year ago. Squad documented temperature of 101.3, pulse ox of 80% on room air, tachycardia and tachypnea and reason they transported him. Patient denied history of COPD however there is a past history of AFINOS that he has history of COPD. He states he is not normally on oxygen. Patient denies fever or chills. He denies headache, visual, ocular auditory symptoms. He denies rhinorrhea, congestion postnasal drainage sore throat. He denies cough. He denies chest discomfort. Patient Nuys abdominal pain, nausea, vomiting or diarrhea. Patient denies dysuria, frequency, urgency or hematuria. This is not surprisingsince pain has an indwelling Benson. Prior similar symptoms: Yes Recent Illness/Hospitalization: No PFSH [facility]LY [facility], [facility] Medical History Other acute postprocedural pain Paraplegic spinal paralysis History of pressure ulcer Wears glasses Thyroid disease Arthritis Uses wheelchair High cholesterol Gastric reflux COPD (chronic obstructive pulmonary disease) Hx of fracture of arm Hx of head injury Bedridden Smoker Right ischial pressure sore, stage 4 Home Medications ?Medication ?Instructions ?Recorded ?Last Taken ?Type baclofen 10 mg tablet 15 mg PO TID spasm 12/17/17 06/09/24 History levothyroxine 125 mcg tablet 125 mcg PO DAILY 12/17/17 06/09/24 History tamsulosin 0.4 mg capsule 0.4 mg PO BID 12/17/1706/09 History icosapent ethyl 1 gram capsule 2 g PO BID cholesterol 02/08/22 06/09/24 History (Vascepa) acetaminophen 650 mg 1,300 mg PO Q8H PRN Pain Unknown History tablet,extended release esomeprazole magnesium 40 mg 40 mg PO DAILY 06/16/22 0 06/09/24 History capsule,delayed release (Nexium) Allergy/AdvReac Type Severity Reaction Status Date / Time Environmental Allergies: Allergy NEEDS Verified 06/03/24 14:20 Uncoded (dust) FOLLOW-UP house dust Allergy Other Verified 06/03/24 14:20 pollen extracts Allergy NEEDS Verified 06/03/24 14:20 FOLLOW-UP Surgical History S/P colostomy History of back surgery Hx of neck surgery Hx of spinal surgery Social History Smoking Status: Former smoker ROS ROS ED Constitutional Constitutional ED: Denies chills, fever(s), subjective or sweats Eyes Eyes: Denies blurry vision or change in vision ENT ENT ED: Denies ear pain, rhinorrhea or sore throat Cardiovascular Cardiovascular: Denies chest pain, orthopnea or palpitations Respiratory/Chest Respiratory/Chest: Denies cough, dyspnea, dyspnea on exertion or orthopnea Gastrointestinal Gastrointestinal: Denies abdominal pain, diarrhea, nausea or vomiting Genitourinary Genitourinary ED: Reports other Details: Patient has an indwelling Benson. Musculoskeletal Musculoskeletal: Denies arthralgias or myalgias Integumentary Reports other Details: Decubitus ulcer down to muscle right medial superior buttocks area. Neurologic Neurologic: Reports weakness; Denies headache(s) or paresthesias Hematologic/Lymphatic Hematologic/Lymphatic: Reports systems reviewed and no addt'l complaints, exceptas documented EXAM Physical Exam Const Vital Signs: 06/09/24 09:00 06/09/24 09:05 06/09/24 09:15 Temperature 98.8 F 102.0 F H Temperature Source Oral Axillary Pulse Rate 112 H Respiratory Rate 22 H Respiratory Effort Short of Breath Respiratory Depth Shallow Respiratory Pattern Normal Blood Pressure 125/57 H Blood Pressure Mean 79 Pulse Ox 93 Oxygen Delivery Method Room Air Room Air Oxygen Flow Rate (L/min) 06/09/24 10:05 06/09/24 11:00 Temperature 100.1 F H 98.9 F Temperature Source Axillary Oral Pulse Rate 101 H 103 H Respiratory Rate 21 H 19 H Respiratory Effort Respiratory Depth Respiratory Pattern Blood Pressure 128/67 H 132/66 H Blood Pressure Mean 87 88 Pulse Ox 100 98 Oxygen Delivery Method Nasal Cannula Oxygen Flow Rate (L/min) 2 2 Positive well nourished and well developed Constitutional Narrative: BMI is 35.3. Patient is tachypneic. General Appearance ED: well developed and pallor; Negative for cyanotic, diaphoretic or NAD HEENT Reports TM's clear and dry mucous membranes Negative for trauma or tenderness Tympanic Membrane ED: Yes TM's clear Mouth ED: Yes dry mucous membranes Mouth: dry mucous membranes Eyes PERRL and EOMs intact bilaterally General Eye ED: Negative for pale conjunctiva or scleral icterus Neck no lymphadenopathy, supple and no JVD Neck Narrative: Attempt to assess for JVD is difficult due to body habitus. Chest Wall inspection of chest normal and palpation of chest normal Resp normal respiratory effort and clear to auscultation bilaterally Cardio regular rhythm, S1 normal heart sound, S2 normal heart sound and no murmurs Rate: tachycardic GI normal to inspection, nondistended, normoactive bowel sounds, non-tender, non-distended and no masses; Negative for hepatosplenomegaly Narrative: Patient has indwelling Benson. Back/Spine no CVA tenderness Extremity Negative for normal to inspection Extremity Narrative: Patient has braces on his lower extremities due to his paraplegia. There is no asymmetry, discoloration, leg vein distention, palpable cords tenderness on the distribution deep venous system. Neuro oriented x3 and CN's II-XII intact bilaterally Neuro Narrative: Patient is awake but not alert. Sensorium / Orientation: Negative for alert Psych mental status grossly normal Skin Skin Narrative: Patient has a wound right buttocks. There is a fresh gauze noted in it. The wound is healing by secondary intention with granulation tissue noted. There isno discharge. There is no odor. There is slight erythema without warmth or induration. There is no fluctuance. General Skin Exam: pallor Sepsis Attestation Sepsis Alert: Yes Sepsis Attestation: Agree w/Sepsis Date exam was performed: 06/09/24 Time exam was performed: 09:20 (Patient has tachycardia, tachypnea and repeat temperature is 102.0. In light of this blood cultures and lactate were ordered. There is no obvious source at this time. Once source has been identified will treat with appropriate antibiotics.) Possible Source of Sepsis: Genitourinary Sepsis Organ Dysfunction Criteria Present: Lactic Acid > 2 mmol/L MDM MDM MDM Narrative Medical decision making narrative: Initial vitals reveal tachycardia and tachypnea. He had a normal temperature. Wound is repeated since he felt warmer than document temperature I was informed at 0915 that it is 102.0 ?F. Blood cultures were added as well as lactate. Source does not appear to be his decubitus ulcer right buttocks. Clinically he does not have pneumonia. His pulse ox is 93 on room air. His urine is turbid which may be due to chronic indwelling Benson. This could be his source. Patient does meet criteria for SIRS. Will obtain appropriate blood work to assess for sepsis and endorgan dysfunction. History & Record Review Additional record(s) reviewed:: Prior ED visit and Prior labs Lab Data Attestation: I reviewed the patient's lab results. Lab results narrative: White count is elevated 18.5 thousand. Patient does have a shift with no bandemia. Comprehensive metabolic panel is unremarkable. Alkaline phosphatase slightly elevated 137. Urine appears to be the source with greater than 100 WBCs and 2+ bacteria. Macro was positive for leukoesterase nitrites as well as occult blood. There is also proteinuria noted. Lactate is elevated at 2.8. Labs: Laboratory Results - last 24 hr 06/09/24 06/09/24 06/09/24 09:10 09:25 09:31 WBC 18.5 H RBC 4.73 Hgb 13.6 Hct 41.3 MCV 87.3 MCH 28.8 MCHC 32.9 RDW Std Deviation 52.9 H RDW Coeff of Josue 16.5 H Plt Count 310 MPV 9.3 Immature Gran % (Auto) 0.700 Neut % (Auto) 85.9 H Lymph % (Auto) 5.6 L [place] % (Auto) 6.9 Eos % (Auto) 0.4 Baso % (Auto) 0.5 Absolute Neuts (auto) 15.9 H Absolute Lymphs (auto) 1.04 Nucleated RBC % 0 Sodium 138 Potassium 4.1 Chloride 103 Carbon Dioxide 22.0 Anion Gap 13 BUN 10 Creatinine 0.67 L Estim Creat Clear Calc 98.85 Est GFR (MDRD) Non-Af 102 BUN/Creatinine Ratio 15.6 Glucose 149 H Lactic Acid 2.8 H* Calcium 9.3 Total Bilirubin 0.29 AST 25 ALT 21 Alkaline Phosphatase 137 H Total Protein 7.3 Albumin 3.6 Globulin 3.7 Albumin/Globulin Ratio 1.0 Urine Color Yellow Urine Clarity Cloudy Urine pH 7.0 Ur Specific [place] 1.010 Urine Protein 30 H Urine Glucose (UA) Normal Urine Ketones Negative Urine Occult Blood 150 H Urine Nitrite Positive H Urine Bilirubin Negative Urine Urobilinogen Normal Ur Leukocyte Esterase 500 H Urine RBC 0-5 SEEN Urine WBC >100 SEEN Ur Squamous Epith Cells 0 SEEN Amorphous Sediment 1+ Urine Bacteria 2+ Urine Mucus 0 SEEN Radiography Chest X-Ray - ED: 2 View, Read by ED Physician, Unchanged, Normal, Heart, Mediastinum, Chronic Changes and - (There is no effusion. Suboptimal due to rotation and limited inspiration. There is family reviewed interpreted by tx [id number].) Diagnostic Testing: Clinical Impression(s) from Imaging Studies Chest X-Ray 06/09/24 09:12 IMPRESSION: Stable mild increased markings at the lung bases suggestive of scarring. Right apical scarring. Reading Location: [facility] Management Discussion w/another healthcare provider: Hospitalist (Spoke with Dr. Shaw. She will see patient in the ER. Full admit PCU) Treatment and Re-Evaluation :: Since there is concern patient has sepsis and source is either respiratory or urologic patient received 2 g of Rocephin which will cover both respiratory and urologic pathogens. If it is pneumonia we will add azithromycin for atypical coverage since she presents from home. Comments:: [employer] was asked to page the hospitalist at [phone]. Discharge Plan Dx/Rx/DC Orders Clinical Impression: Complicated urinary tract infection, Bedridden, Paraplegic spinal paralysis, Colostomy in place, Hyperlipidemia, Spinal cord injury, SIRS (systemic inflammatory response syndrome), Leukocytosis, Decubitus ulcer of right buttock,stage 3, Acidosis, lactic Disposition Disposition: Acute Care Hospital [facility] What to do if you have Problems For any increased pain, shortness of breath, bleeding, nausea or vomiting, chestpain, or any unexpected problems, contact your Primary Care Provider. Call [facility] ([phone]) or report to the closest Emergency Room. Call 911 if necessary. 06/09/24 1132 <Electronically signed by Hebert Saavedra MD> Cosigner Signature (if applicable): CC: Dr. Nathanael Cardona MD ~ Signed [facility] Work Phone: Discharge summary Author Juliana Shaw [facility] Note Date/Time June 12, 2024 1:3 2pm [facility] Medical Records Department [address] [place] [address] Instructions for Home/Discharge Instructions 06/12/24 1326 MR#: [id number] Acct: [id number] Name: JORGE COVINGTON Rep #:[id number] : 1955 68 From: Juliana Shaw MD PCP: Dr. Nathanael Cardona MD Status:AD M IN Discharge Instructions Diet Discharge Diet: No restrictions DC O2, CPAP, BIPAP needs Home O2 Discharge instructions: No Dressing / Incision Discharge Activity: Return to Normal Activity Follow Up Care Test Results: Test results from this visit will be discussed in further detail at your follow- up appointment, if applicable. Discharge Plan Admission Admit Date/Time: 06/09/24 12:06 Primary Reason for Your Visit: Weakness and fever Attending Provider: Juliana Shaw Primary Care Provider: Nathanael Cardona Instructions Patient Instructions: ED Bladder Infection, Male (Adult) Additional Instructions / Restrictions: DISCHARGE INSTRUCTIONS PLEASE READ *Please take this with you to your next doctors appointment* - -Please call your primary care provider's office upon discharge to schedule a hospital follow up within 1 week. -For any concerning signs or symptoms please call 911 or proceed to the nearest emergency department Discharge Orders/Prescriptions Prescriptions: New amoxicillin-pot clavulanate 875-125 mg tablet 1 tab PO BID 7 Days Qty: 14 0RF linezolid 600 mg tablet 600 mg PO BID 7 Days Qty: 14 0RF Continued tamsulosin 0.4 MG capsule 0.4 mg PO BID baclofen 10 MG tablet 15 mg PO TID Patient Comments: 1.5 TABS = 15 MG TID levothyroxine 125 MCG tablet 125 mcg PO DAILY icosapent ethyl [Vascepa] 1 gram Capsule 2 g PO BID acetaminophen 650 mg Tablet Extended Release 1,300 mg PO Q8H PRN (Reason: Pain) esomeprazole magnesium [Nexium] 40 mg Capsule,Delayed Release(Dr/Ec) 40 mg PO DAILY Other Ambulatory Orders: 14 Day Event Recorder Preventi (Urgent) Timeframe: 1 Day Facility: [facility] - Location: Cardiovascular Services Ordered By: Dr. Juliana Shaw Referrals / Follow Up: Nathanael Cardona MD [Primary Care Provider] - Disposition Disposition (needs filled in before D/C Order can be placed): Home Health Service 06/12/24 1110<Electronically signed by Juliana Shaw MD>Juliana Shaw MD CC: Dr. Nathanael Cardona MD ~ Signed [facility] Work Phone: evaluation noteNo assessment information available [facility] Work Phone: evaluation note* Diagnosis Onset Date Resolution Status Stage II pressure ulcer of sacral region acute [facility] Work Phone: evaluation note* Diagnosis Onset Date Resolution Status Osteomyelitis of right side of pelvis acute Bedridden chronic Right ischial pressure sore, stage 4 chronic Smoker chronic Osteomyelitis of right side of pelvis acute Spinal cord injury acute Tobacco abuse acute Bedridden chronic Right ischial pressure sore, stage 4 chronic Smoker chronic [facility] Work Phone: Evaluation note* Diagnosis Onset Date Resolution Status Osteomyelitis of right side of pelvis acute Bedridden chronic Right ischial pressure sore, stage 4 chronic Smoker chronic Osteomyelitis of right side of pelvis acute Spinal cord injury acute Tobacco abuse acute Bedridden chronic Right ischial pressure sore, stage 4 chronic Smoker chronic Osteomyelitis of right side of pelvis acute Bedridden chronic Right ischial pressure sore, stage 4 chronic Smoker chronic Constipation acute Right ischial pressure sore, stage 4 chronic [facility] Work Phone: evaluation note* Diagnosis Onset Date Resolution Status Osteomyelitis of right side of pelvis acute Bedridden chronic Right ischial pressure sore, stage 4 chronic Smoker chronic Osteomyelitis of right side of pelvis acute Spinal cord injury acute Tobacco abuse acute Bedridden chronic Right ischial pressure sore, stage 4 chronic Smoker chronic Osteomyelitis of right side of pelvis acute Bedridden chronic Right ischial pressure sore, stage 4 chronic Smoker chronic Constipation acute Right ischial pressure sore, stage 4 chronic Osteomyelitis of right side of pelvis acute Bedridden chronic Right ischial pressure sore, stage 4 chronic Smoker chronic [facility] Work Phone: Evaluation note* Diagnosis Onset Date Resolution Status Osteomyelitis of right side of pelvis acute Bedridden chronic Right ischial pressure sore, stage 4 chronic Smoker chronic Osteomyelitis of right side of pelvis acute Spinal cord injury acute Tobacco abuse acute Bedridden chronic Right ischial pressure sore, stage 4 chronic Smoker chronic Osteomyelitis of right side of pelvis acute Bedridden chronic Right ischial pressure sore, stage 4 chronic Smoker chronic Constipation acute Right ischial pressure sore, stage 4 chronic Osteomyelitis of right side of pelvis acute Bedridden chronic Right ischial pressure sore, stage 4 chronic Smoker chronic Osteomyelitis of right side of pelvis acute Bedridden chronic Right ischial pressure sore, stage 4 chronic Smoker chronic [facility] Work Phone: Evaluation note* Diagnosis Onset Date Resolution Status Osteomyelitis of right side of pelvis acute Bedridden chronic Right ischial pressure sore, stage 4 chronic Smoker chronic Constipation acute Right ischial pressure sore, stage 4 chronic Osteomyelitis of right side of pelvis acute Bedridden chronic Right ischial pressure sore, stage 4 chronic Smoker chronic Osteomyelitis of right side of pelvis acute Bedridden chronic Right ischial pressure sore, stage 4 chronic Smoker chronic Osteomyelitis of right side of pelvis acute Bedridden chronic Right ischial pressure sore, stage 4 chronic Smoker chronic [facility] Work Phone: Evaluation note* Diagnosis Onset Date Resolution Status Osteomyelitis of right side of pelvis acute Bedridden chronic Right ischial pressure sore, stage 4 chronic Smoker chronic Osteomyelitis of right side of pelvis acute Bedridden chronic Right ischial pressure sore, stage 4 chronic Smoker chronic Osteomyelitis of right side of pelvis acute Bedridden chronic Right ischial pressure sore, stage 4 chronic Smoker chronic Right ischial pressure sore, stage 4 chronic Osteomyelitis of right side of pelvis acute Wheelchair dependent acute Right ischial pressure sore, stage 4 chronic Smoker chronic [facility] Work Phone: Evaluation note* Diagnosis Onset Date Resolution Status Osteomyelitis of right side of pelvis acute Bedridden chronic Right ischial pressure sore, stage 4 chronic Smoker chronic Osteomyelitis of right side of pelvis acute Bedridden chronic Right ischial pressure sore, stage 4 chronic Smoker chronic Right ischial pressure sore, stage 4 chronic Osteomyelitis of right side of pelvis acute Wheelchair dependent acute Right ischial pressure sore, stage 4 chronic Smoker chronic Osteomyelitis of right side of pelvis acute Wheelchair dependent acute Right ischial pressure sore, stage 4 chronic Smoker chronic [facility] Work Phone: Evaluation note* Diagnosis Onset Date Resolution Status Osteomyelitis of right side of pelvis acute Bedridden chronic Right ischial pressure sore, stage 4 chronic Smoker chronic Right ischial pressure sore, stage 4 chronic Osteomyelitis of right side of pelvis acute Wheelchair dependent acute Right ischial pressure sore, stage 4 chronic Smoker chronic Osteomyelitis of right side of pelvis acute Wheelchair dependent acute Right ischial pressure sore, stage 4 chronic Smoker chronic Osteomyelitis of right side of pelvis acute Wheelchair dependent acute Right ischial pressure sore, stage 4 chronic Smoker chronic Nonhealing ulcer of right lo wer leg with fat layer exposed acute S/P colostomy acute [facility] Work Phone: Evaluation note* Diagnosis Onset Date Resolution Status Right ischial pressure sore, stage 4 chronic Osteomyelitis of right side of pelvis acute Wheelchair dependent acute Right ischial pressure sore, stage 4 chronic Smoker chronic Osteomyelitis of right side of pelvis acute Wheelchair dependent acute Right ischial pressure sore, stage 4 chronic Smoker chronic Osteomyelitis of right side of pelvis acute Wheelchair dependent acute Right ischial pressure sore, stage 4 chronic Smoker chronic Nonhealing ulcer of right lo wer leg with fat layer exposed acute S/P colostomy acute Osteomyelitis of right side of pelvis acute Wheelchair dependent acute Right ischial pressure sore, stage 4 chronic Smoker chronic S/P colostomy acute [facility] Work Phone: Evaluation note* Diagnosis Onset Date Resolution Status Osteomyelitis of right side of pelvis acute Wheelchair dependent acute Right ischial pressure sore, stage 4 chronic Smoker chronic Osteomyelitis of right side of pelvis acute Wheelchair dependent acute Right ischial pressure sore, stage 4 chronic Smoker chronic Nonhealing ulcer of right lo wer leg with fat layer exposed acute S/P colostomy acute Osteomyelitis of right side of pelvis acute Wheelchair dependent acute Right ischial pressure sore, stage 4 chronic Smoker chronic S/P colostomy acute Osteomyelitis of right side of pelvis acute Wheelchair dependent acute Right ischial pressure sore, stage 4 chronic Smoker chronic [facility] Work Phone: Evaluation note* Diagnosis Onset Date Resolution Status Osteomyelitis of right side of pelvis acute Wheelchair dependent acute Right ischial pressure sore, stage 4 chronic Smoker chronic Nonhealing ulcer of right lo wer leg with fat layer exposed acute S/P colostomy acute Osteomyelitis of right side of pelvis acute Wheelchair dependent acute Right ischial pressure sore, stage 4 chronic Smoker chronic S/P colostomy acute Osteomyelitis of right side of pelvis acute Wheelchair dependent acute Right ischial pressure sore, stage 4 chronic Smoker chronic Osteomyelitis of right side of pelvis acute Wheelchair dependent acute Right ischial pressure sore, stage 4 chronic Smoker chronic [facility] Work Phone: Evaluation note* Diagnosis Onset Date Resolution Status Osteomyelitis of right side of pelvis acute Wheelchair dependent acute Right ischial pressure sore, stage 4 chronic Smoker chronic S/P colostomy acute Osteomyelitis of right side of pelvis acute Wheelchair dependent acute Right ischial pressure sore, stage 4 chronic Smoker chronic Osteomyelitis of right side of pelvis acute Wheelchair dependent acute Right ischial pressure sore, stage 4 chronic Smoker chronic Osteomyelitis of right side of pelvis acute Wheelchair dependent acute Right ischial pressure sore, stage 4 chronic Smoker chronic [facility] Work Phone: Evaluation note* Diagnosis Onset Date Resolution Status Osteomyelitis of right side of pelvis acute Wheelchair dependent acute Right ischial pressure sore, stage 4 chronic Smoker chronic Osteomyelitis of right side of pelvis acute Wheelchair dependent acute Right ischial pressure sore, stage 4 chronic Smoker chronic Osteomyelitis of right side of pelvis acute Wheelchair dependent acute Right ischial pressure sore, stage 4 chronic Smoker chronic Osteomyelitis of right side of pelvis acute Wheelchair dependent acute Right ischial pressure sore, stage 4 chronic Smoker chronic [facility] Work Phone: Evaluation note* Diagnosis Onset Date Resolution Status Osteomyelitis of right side of pelvis acute Wheelchair dependent acute Right ischial pressure sore, stage 4 chronic Smoker chronic Osteomyelitis of right side of pelvis acute Wheelchair dependent acute Right ischial pressure sore, stage 4 chronic Smoker chronic Osteomyelitis of right side of pelvis acute Wheelchair dependent acute Right ischial pressure sore, stage 4 chronic Smoker chronic Acute bronchitis acute Osteomyelitis of right side of pelvis acute Wheelchair dependent acute Right ischial pressure sore, stage 4 chronic Smoker chronic [facility] Work Phone: Evaluation note* Diagnosis Urinary retention- Primary Unspecified retention of urine [facility] Diagnosis Urinary retention- Primary Unspecified retention of urine [facility] Diagnosis Urinary retention- Primary Unspecified retention of urine Suprapubic catheter (CMS/HCC) (HCC) Other cystostomy status [facility] Author Juliana Shaw [facility] Note Date/Time June 09, 2024 12: 16pm [facility] Medical Records Department [address] [place] [id number] H&P Exam - Hospitalist 06/09/24 1206 MR#: [id number] Acct: [id number] Name: JORGE COVINGTON Rep #:[id number] : 1955 68 From: Juliana Shaw MD PCP: Dr. Nathanael Cardona MD Status:RE G ER Location: ED HPI - General General Date of Admission: 06/09/24 Date of Service: 06/09/24 Chief Complaint: Fever HPI Narrative JORGE COVINGTON, is a 68 M with history of paraplegia, COPD, hypothyroidism, chronic indwelling Benson who presented [facility] ED 06/09/2024 with 1 day of weakness, diarrhea and fever. Ultimately he called EMS today because he was too weak to transfer with his wheelchair. EMS reported patient was hypoxic and put him on nasal cannula, he was also febrile, on arrival to theED patient with temperature of 102, heart rate 112 with blood pressure 125/57, lactic acid 2.8, respiratory rate 22 and patient 93% on room air. White blood cell count 18 and UA suggestive of UTI, patient started on antibiotics and hospitalist contacted for admission. Patient evaluated at bedside, reports thatsince yesterday he had a temperature spike to 101, has been diffusely weak, alsohad some diarrhea but otherwise grider negative ROS. PFSH Medical History Other acute postprocedural pain Paraplegic spinal paralysis History of pressure ulcer Wears glasses Thyroid disease Arthritis Uses wheelchair High cholesterol Gastric reflux COPD (chronic obstructive pulmonary disease) Hx of fracture of arm Hx of head injury Bedridden Smoker Right ischial pressure sore, stage 4 Home Medications ?Medication ?Instructions ?Recorded ?Last Taken ?Type baclofen 10 mg tablet 15 mg PO TID spasm 12/17/17 06/09/24 History levothyroxine 125 mcg tablet 125 mcg PO DAILY 12/17/17 06/09/24 History tamsulosin 0.4 mg capsule 0.4 mg PO BID 12/17/1706/09 History icosapent ethyl 1 gram capsule 2 g PO BID cholesterol 02/08/22 06/09/24 History (Vascepa) acetaminophen 650 mg 1,300 mg PO Q8H PRN Pain Unknown History tablet,extended release esomeprazole magnesium 40 mg 40 mg PO DAILY 06/16/22 0 06/09/24 History capsule,delayed release (Nexium) Allergy/AdvReac Type Severity Reaction Status Date / Time Environmental Allergies: Allergy NEEDS Verified 06/03/24 14:20 Uncoded (dust) FOLLOW-UP house dust Allergy Other Verified 06/03/24 14:20 pollen extracts Allergy NEEDS Verified 06/03/24 14:20 FOLLOW-UP Surgical History S/P colostomy History of back surgery Hx of neck surgery Hx of spinal surgery Social History Smoking Status: Former smoker ROS ROS Narrative General: Fever for 1 day HENT: Denies headache, denies stuffy nose, denies sore throat EYES: Denies changes in vision Resp: Denies cough, denies shortness of breath Cardiac: Denies chest pain GI: Denies abdominal pain, had some loose stools, denies nausea/vomiting : Chronic indwelling Benson Extremity: Denies swelling MSK: Cannot walk chronically, generalized weakness Neuro: Denies any new numbness/tingling Heme: Denies any bleeding or bruising Skin: Denies rashes Psychiatric: No complaints voiced Vital Signs Vital Signs Vital Signs: 06/09/24 09:00 06/09/24 09:05 06/09/24 09:15 Temperature 98.8 F 102.0 F H Temperature Source Oral Axillary Pulse Rate 112 H Respiratory Rate 22 H Respiratory Effort Short of Breath Respiratory Depth Shallow Respiratory Pattern Normal Blood Pressure 125/57 H Blood Pressure Mean 79 Pulse Ox 93 Oxygen Delivery Method Room Air Room Air Oxygen Flow Rate (L/min) 06/09/24 10:05 06/09/24 11:00 Temperature 100.1 F H 98.9 F Temperature Source Axillary Oral Pulse Rate 101 H 103 H Respiratory Rate 21 H 19 H Respiratory Effort Respiratory Depth Respiratory Pattern Blood Pressure 128/67 H 132/66 H Blood Pressure Mean 87 88 Pulse Ox 100 98 Oxygen Delivery Method Nasal Cannula Oxygen Flow Rate (L/min) 2 2 Weight Weight: 99.3 kg Body Mass Index (BMI) 35.3 Physical Exam Narrative General: Alert, answers questions appropriately, no apparent distress HEENT: Atraumatic, normocephalic Eyes: Anicteric Neck: Supple Respiratory: Some fine crackles at the bases with no overt wheezes or rhonchi, normal respiratory effort Cardiovascular: Mild low-grade sinus tachycardia GI: Soft, nontender, nondistended Extremities: No significant pitting edema Musculoskeletal: Patient chronically wheelchair-bound Neuro: Patient chronically wheelchair-bound Skin: No rashes appreciated Psych: Cooperative Results Lab / Micro Data 06/09/24 09:10 06/09/24 09:10 Labs: Laboratory Results - last 24 hr 06/09/24 09:10: WBC 18.5 H, RBC 4.73, Hgb 13.6, Hct 41.3, MCV 87.3, MCH 28.8, MCHC 32.9, RDW Std Deviation 52.9 H, RDW Coeff of Josue 16.5 H, Plt Count 310, MPV9.3, Immature Gran % (Auto) 0.700, Neut % (Auto) 85.9 H, Lymph % (Auto) 5.6 L, [place] % (Auto) 6.9, Eos % (Auto) 0.4, Baso % (Auto) 0.5, Absolute Neuts (auto) 15.9 H, Absolute Lymphs (auto) 1.04, Nucleated RBC % 0, Sodium 138, Potassium 4.1, Chloride 103, Carbon Dioxide 22.0, Anion Gap 13, BUN 10, Creatinine 0.67 L,Estim Creat Clear Calc 98.85, Est GFR (MDRD) Non-Af 102, BUN/Creatinine Ratio 15.6, Glucose 149 H, Calcium 9.3, Total Bilirubin 0.29, AST 25, ALT 21, AlkalinePhosphatase 137 H, Total Protein 7.3, Albumin 3.6, Globulin 3.7, Albumin/Globulin Ratio 1.0 06/09/24 09:25: Urine Color Yellow, Urine Clarity Cloudy, Urine pH 7.0, Ur Specific [place] 1.010, Urine Protein 30 H, Urine Glucose (UA) Normal, Urine Ketones Negative, Urine Occult Blood 150 H, Urine Nitrite Positive H, Urine Bilirubin Negative, Urine Urobilinogen Normal, Ur Leukocyte Esterase 500 H, Urine RBC 0-5 SEEN, Urine WBC >100 SEEN, Ur Squamous Epith Cells 0 SEEN, Amorphous Sediment 1+, Urine Bacteria 2+, Urine Mucus 0 SEEN 06/09/24 09:31: Lactic Acid 2.8 H* Micro: Microbiology 06/09/24 09:40 Mucosa - Nose SARS-CoV-2, Influenza & RSV (PCR) - Final Imaging Radiology Impression Chest X-Ray 06/09/24 09:12 IMPRESSION: Stable mild increased markings at the lung bases suggestive of scarring. Right apical scarring. Reading Location: [facility] Assessment & Plan Assessment/Plan (1) Complicated urinary tract infection: PLAN: Plan # Complicated urinary tract infection in association with chronic indwelling Benson -Patient tachycardic with elevated white blood cell count, UA suspicious for UTI -Cultures sent -IV fluids -Will place patient on Levaquin due to previous urinary tract infection sensitivities # Chronic paraplegia -Supportive care -Occupational Therapy ordered -Treat underlying infection, suspect this will improve functional status -Continue baclofen as tolerated #Hypothyroidism -Continue Synthroid # Chronic decubitus ulcer -Following with Dr. Kay, healing well, continue outpatient follow-up -Will consult wound care while patient admitted #GERD -Continue PPI # Hyperlipidemia -Continue Vascepa if available #DVT ppx: SCDs Juliana Shaw MD Time spent in the patient's overall evaluation, decision-making process, review of diagnostic data, adjustment of management, discussion with other providers, nursing and ancillary staff involved in patient's care documentation, 57 Minutes Charges/Coding Visit Charges Inpatient E&M: 01124 Init Hosp L2 06/09/24 1216 <Electronically signed by Juliana Shaw MD> Cosigner Signature (if applicable): CC: Dr. Juliana Shaw MD; Dr. Nathanael Cardona MD~ Signed [facility] Work Phone: Hospital Discharge instructions Additional Instructions CT scan head and neck negative. CT pelvis also negative for fractures from your fall and injury. Your wound cultures were reviewed additional cultures are sent out pending. Discussed with Dr. Messina in the ED continue your Augmentin you will be followed up on Thursday in wound care for reevaluation. Return if any worsening symptoms. Continue oxycodone as needed for pain.[facility] Work Phone: Reason for referral (narrative)No reason for referral information availableWCincinnati [facility] Work Phone: Summary Purpose Family History No Family History Records Found Relationship Condition Age at Onset Recorded Date/T marguerite mother Cerebrovascular accident (CVA) Unknown Hypertension Unknown father Hypertension Unknown Malignant neoplasm of prostate Unknown Advance Directives No Advanced Directives Records Found Advance Directive Response Recorded Date/ Time Living Will Yes February 08 11:04am Power of Ladle Car Operator Yes February 08, 2022 11:04am Name of Medical Power of Ladle Car Operator Kassandra [facility], [facility] February 08, 2022 11:04am Advance Directive Response Recorded Date/ Time Name of Medical Power of Ladle Car Operator Kassandra, [facility], POA February 08, 2022 11:04am Living Will Yes February 08 11:04am Power of Ladle Car Operator Yes February 08, 2022 11:04am Advance Directive Response Recorded Date/ Time Name of Medical Power of Ladle Car Operator Kassandra [facility], POA February 08, 2022 11:04am Name of Medical Power of Ladle Car Operator . April 28, 2022 5:34pm Living Will Yes April 28 5:34pm Power of Ladle Car Operator Yes April 28, 2022 5:34pm Advance Directive Response Recorded Date/ Time Name of Medical Power of Ladle Car Operator alfonso Cannon, MICHAEL February 08, 2022 11:04am Name of Medical Power of Ladle Car Operator . April 28, 2022 5:34pm Living Will No May 02 12:05pm Power of Ladle Car Operator No May 02, 2022 12:05pm Advance Directive Response Recorded Date/ Time Name of Medical Power of Ladle Car Operator . April 28, 2022 6:34pm Living Will No June 16, 2022 9:22am Power of Ladle Car Operator No June 16 9:22am Advance Directive Response Recorded Date/ Time Living Will No June 16, 2022 9:22am Power of Ladle Car Operator No June 16 9:22am Advance Directive Response Recorded Date/ Time Living Will Yes October 13, 2022 10:42am Power of Ladle Car Operator Yes October 13 10:42am Advance Directive Response Recorded Date/ Time Name of Medical Power of Ladle Car Operator November 21, 2022 4:09pm Living Will Yes November 21 4:09pm Power of Ladle Car Operator Yes November 21, 2 023 4:09pm Advance Directive Response Recorded Date/ Time Name of Medical Power of Ladle Car Operator November 21, 2022 3:09pm Living Will Yes November 21 3 3:09pm Power of Ladle Car Operator Yes November 21, 2 023 3:09pm Advance Directive Response Recorded Date/ Time Living Will Yes November 21 3 3:09pm Power of Ladle Car Operator Yes November 21, 2 023 3:09pm Advance Directive Response Recorded Date/ Time Living Will Yes November 21 3 4:09pm Power of Ladle Car Operator Yes November 21, 2 023 4:09pm Date Activated Date Inactivated Comments 12/11/2023 12:03 PM 12/11/2023 5:19 PM Date Activated Date Inactivated Comments 12/11/2023 12:03 PM 12/11/2023 5:19 PM Advance Directive Response Recorded Date/ Time Living Will Yes August 26, 2023 3 :30pm Power of Ladle Car Operator Yes August 26, 2023 3:30pm Living Will Yes January 24 3:18pm Power of Ladle Car Operator Yes January 25, 2024 3:18pm Living Will Yes February 27 1:17am Power of Ladle Car Operator Yes February 28, 2024 1:17am Living Will Yes March 30 1:12am Power of Ladle Car Operator Yes March 30, 2 025 1:12am Living Will No June 09, 2024 9:05am Power of Ladle Car Operator No June 09 9:05am Living Will Yes April 30 1:37am Power of Ladle Car Operator Yes April 30, 2024 1:37am Living Will Yes May 28, 2024 2:49am Power of Ladle Car Operator Yes May 28 2:49am Advance Directive Response Recorded Date/ Time Living Will Yes August 26, 2023 3 :30pm Power of Ladle Car Operator Yes August 26, 2023 3:30pm Living Will Yes January 24 3:18pm Power of Ladle Car Operator Yes January 25, 2024 3:18pm Living Will Yes February 27 1:17am Power of Ladle Car Operator Yes February 28, 2024 1:17am Living Will Yes March 30 1:12am Power of Ladle Car Operator Yes March 30, 2 025 1:12am Living Will Yes June 09, 2024 2:13pm Power of Ladle Car Operator Yes June 09 2:13pm Name of Medical Power of Ladle Car Operator Dasia Covington , June 09, 2024 2:13pm Living Will Yes April 30 1:37am Power of Ladle Car Operator Yes April 30, 2024 1:37am Living Will Yes May 28, 2024 2:49am Power of Ladle Car Operator Yes May 28 2:49am Advance Directive Response Recorded Date/ Time Living Will Yes August 26, 2023 3 :30pm Do you have a Healthcare Pow er of Ladle Car Operator? Yes August 26, 2023 3:30pm Living Will Yes February 27 1:17am Do you have a Healthcare Pow er of Ladle Car Operator? Yes February 28, 2024 1:17am Living Will Yes March 30 1:12am Do you have a Healthcare Pow er of Ladle Car Operator? Yes March 30, 2024 1:12am Living Will Yes June 09, 2024 2:13pm Do you have a Healthcare Pow er of Ladle Car Operator? Yes June 09, 2024 2:13pm Name of Medical Power of Ladle Car Operator Dasia Covington , June 09, 2024 2:13pm Living Will Yes April 30 1:37am Do you have a Healthcare Pow er of Ladle Car Operator? Yes April 30, 2024 1:37am Living Will Yes May 28, 2024 2:49am Do you have a Healthcare Pow er of Ladle Car Operator? Yes May 28, 2024 2:49am Advance Directive Response Recorded Date/ Time Living Will Yes March 30 1:12am Do you have a Healthcare Pow er of Ladle Car Operator? Yes March 30, 2024 1:12am Living Will Yes June 09, 2024 2:13pm Do you have a Healthcare Pow er of Ladle Car Operator? Yes June 09, 2024 2:13pm Name of Medical Power of Ladle Car Operator Dasia Covington , June 09, 2024 2:13pm Do you have a Healthcare Pow er of Ladle Car Operator? Yes July 29, 2024 11:08pm Name of Medical Power of Ladle Car Operator Abraham Covington July 29, 2024 11:08pm Living Will Yes April 30 1:37am Do you have a Healthcare Pow er of Ladle Car Operator? Yes April 30, 2024 1:37am Living Will Yes May 28, 2024 2:49am Do you have a Healthcare Pow er of Ladle Car Operator? Yes May 28, 2024 2:49am Living Will Yes June 28, 2024 12:51am Do you have a Healthcare Pow er of Ladle Car Operator? Yes June 28, 2024 12:51am Do you have a Healthcare Pow er of Ladle Car Operator? No August 02, 2024 10:57am Advance Directive Response Recorded Date/ Time Living Will Yes June 09, 2024 2:13pm Do you have a Healthcare Pow er of Ladle Car Operator? Yes June 09, 2024 2:13pm Name of Medical Power of Ladle Car Operator Dasia Covington , June 09, 2024 2:13pm Do you have a Healthcare Pow er of Ladle Car Operator? Yes July 29, 2024 11:08pm Name of Medical Power of Ladle Car Operator Abraham Covington July 29, 2024 11:08pm Do you have a Healthcare Pow er of Ladle Car Operator? No August 07, 2024 5:53pm Living Will Yes April 30 1:37am Do you have a Healthcare Pow er of Ladle Car Operator? Yes April 30, 2024 1:37am Living Will Yes May 28, 2024 2:49am Do you have a Healthcare Pow er of Ladle Car Operator? Yes May 28, 2024 2:49am Living Will Yes June 28, 2024 12:51am Do you have a Healthcare Pow er of Ladle Car Operator? Yes June 28, 2024 12:51am Do you have a Healthcare Pow er of Ladle Car Operator? No August 02, 2024 10:57am Advance Directive Response Recorded Date/ Time Living Will Yes June 09, 2024 2:13pm Do you have a Healthcare Pow er of Ladle Car Operator? Yes June 09, 2024 2:13pm Name of Medical Power of Ladle Car Operator Dasia Covington , June 09, 2024 2:13pm Living Will Yes July 28, 2024 12 :38am Do you have a Healthcare Pow er of Ladle Car Operator? Yes July 28, 2024 12:38am Do you have a Healthcare Pow er of Ladle Car Operator? Yes July 29, 2024 11:08pm Name of Medical Power of Ladle Car Operator Abraham Covington July 29, 2024 11:08pm Do you have a Healthcare Pow er of Ladle Car Operator? No August 07, 2024 5:53pm Living Will Yes May 28, 2024 2:49am Do you have a Healthcare Pow er of Ladle Car Operator? Yes May 28, 2024 2:49am Living Will Yes June 28, 2024 12:51am Do you have a Healthcare Pow er of Ladle Car Operator? Yes June 28, 2024 12:51am Do you have a Healthcare Pow er of Ladle Car Operator? No August 02, 2024 10:57am Hospital Course Note HNO ID: [id number] Author: Eliseo Romo Service: ? Author Type: [...] (more content not included)... Note HNO ID: [id number] Author: Aparna Armas Service: Anesthesiology Author Type: Nurse Registrar [employer] Type: Procedures Filed: 01/22/2019 11:43 PM Note Text: INTUBATION PROCEDURE NOTE PROCEDURE DATE: January 22, 2019 PROCEDURE START TIME: 2329 PROCEDURE: OROTRACHEAL INTUBATION PRIMARY PROCEDURALIST: Dank Armas APRN.CRNA OUTREACH DIRECTOR(S): None INFORMED CONSENT: Due to emergent situation [...] not included)... Procedure Findings Note HNO ID: [id number] Author: Aparna Armas Service: Anesthesiology Author Type: Nurse Registrar [employer] Type: Procedures Filed: 01/22/2019 11:43 PM Note Text: INTUBATION PROCEDURE NOTE PROCEDURE DATE: January 22, 2019 PROCEDURE START TIME: 2329 PROCEDURE: OROTRACHEAL INTUBATION PRIMARY PROCEDURALIST: Dank Armas APRN.CRNA OUTREACH DIRECTOR(S): None INFORMED CONSENT: Due to emergent situation [...] Intubating Bougie T (more content not included)... Chief Complaint and Reason for Visit Chief Complaint wound Chief Complaint wound wound wound wound wound wound Reason for Visit Stage II pressure ul cer of sacral region Chief Complaint wound wound wound wound wound wound wound wound wound wound EXC RT ISCHIAL PRESSURE SORE PARTIAL OSTECTOMY EXC RT ISCHIAL PRESSURE SORE PARTIAL OSTECTOMY EXC RT ISCHIAL PRESSURE SORE PARTIAL OSTECTOMY EXC RT ISCHIAL PRESSURE SORE PARTIAL OSTECTOMY Reason for Visit Osteomyelitis of rig ht side of pelvis Bedridden Right ischial pressure sore, stage 4 Smoker Osteomyelitis of right side of pelvis Spinal cord injury Tobacco abuse Bedridden Right ischial pressure sore, stage 4 Smoker Chief Complaint wound wound wound wound wound wound wound wound wound wound EXC RT ISCHIAL PRESSURE SORE PARTIAL OSTECTOMY EXC RT ISCHIAL PRESSURE SORE PARTIAL OSTECTOMY EXC RT ISCHIAL PRESSURE SORE PARTIAL OSTECTOMY EXC RT ISCHIAL PRESSURE SORE PARTIAL OSTECTOMY EXC RT ISCHIAL PRESSURE SORE PARTIAL OSTECTOMY WOUND Reason for Visit Osteomyelitis of rig ht side of pelvis Bedridden Right ischial pressure sore, stage 4 Smoker Osteomyelitis of right side of pelvis Spinal cord injury Tobacco abuse Bedridden Right ischial pressure sore, stage 4 Smoker Chief Complaint wound wound wound wound wound wound wound wound wound wound EXC RT ISCHIAL PRESSURE SORE PARTIAL OSTECTOMY PREOP EXC RT ISCHIAL PRESSURE SORE PARTIAL OSTECTOMY EXC RT ISCHIAL PRESSURE SORE PARTIAL OSTECTOMY EXC RT ISCHIAL PRESSURE SORE PARTIAL OSTECTOMY EXC RT ISCHIAL PRESSURE SORE PARTIAL OSTECTOMY WOUND wound wound wound wound DISCUSS COLOSTOMY CREATION Reason for Visit Osteomyelitis of rig ht side of pelvis Bedridden Right ischial pressure sore, stage 4 Smoker Osteomyelitis of right side of pelvis Spinal cord injury Tobacco abuse Bedridden Right ischial pressure sore, stage 4 Smoker Osteomyelitis of right side of pelvis Bedridden Right ischial pressure sore, stage 4 Smoker Constipation Right ischial pressure sore, stage 4 Chief Complaint wound wound wound wound wound wound wound wound wound EXC RT ISCHIAL PRESSURE SORE PARTIAL OSTECTOMY PREOP EXC RT ISCHIAL PRESSURE SORE PARTIAL OSTECTOMY EXC RT ISCHIAL PRESSURE SORE PARTIAL OSTECTOMY EXC RT ISCHIAL PRESSURE SORE PARTIAL OSTECTOMY EXC RT ISCHIAL PRESSURE SORE PARTIAL OSTECTOMY WOUND wound wound wound wound DISCUSS COLOSTOMY CREATION wound wound Reason for Visit Osteomyelitis of rig ht side of pelvis Bedridden Right ischial pressure sore, stage 4 Smoker Osteomyelitis of right side of pelvis Spinal cord injury Tobacco abuse Bedridden Right ischial pressure sore, stage 4 Smoker Osteomyelitis of right side of pelvis Bedridden Right ischial pressure sore, stage 4 Smoker Constipation Right ischial pressure sore, stage 4 Osteomyelitis of right side of pelvis Bedridden Right ischial pressure sore, stage 4 Smoker Chief Complaint wound wound wound wound EXC RT ISCHIAL PRESSURE SORE PARTIAL OSTECTOMY PREOP EXC RT ISCHIAL PRESSURE SORE PARTIAL OSTECTOMY EXC RT ISCHIAL PRESSURE SORE PARTIAL OSTECTOMY EXC RT ISCHIAL PRESSURE SORE PARTIAL OSTECTOMY EXC RT ISCHIAL PRESSURE SORE PARTIAL OSTECTOMY WOUND wound wound wound wound DISCUSS COLOSTOMY CREATION wound wound wound wound wound Reason for Visit Osteomyelitis of rig ht side of pelvis Bedridden Right ischial pressure sore, stage 4 Smoker Osteomyelitis of right side of pelvis Spinal cord injury Tobacco abuse Bedridden Right ischial pressure sore, stage 4 Smoker Osteomyelitis of right side of pelvis Bedridden Right ischial pressure sore, stage 4 Smoker Constipation Right ischial pressure sore, stage 4 Osteomyelitis of right side of pelvis Bedridden Right ischial pressure sore, stage 4 Smoker Osteomyelitis of right side of pelvis Bedridden Right ischial pressure sore, stage 4 Smoker Chief Complaint EXC RT ISCHIAL PRESS URE SORE PARTIAL OSTECTOMY WOUND wound wound wound wound DISCUSS COLOSTOMY CREATION wound wound wound wound wound wound wound wound Reason for Visit Osteomyelitis of rig ht side of pelvis Bedridden Right ischial pressure sore, stage 4 Smoker Constipation Right ischial pressure sore, stage 4 Osteomyelitis of right side of pelvis Bedridden Right ischial pressure sore, stage 4 Smoker Osteomyelitis of right side of pelvis Bedridden Right ischial pressure sore, stage 4 Smoker Osteomyelitis of right side of pelvis Bedridden Right ischial pressure sore, stage 4 Smoker Chief Complaint wound wound wound wound wound wound wound wound wound UPDATE H&P FOR COLOSTOMY wound wound Reason for Visit Osteomyelitis of rig ht side of pelvis Bedridden Right ischial pressure sore, stage 4 Smoker Osteomyelitis of right side of pelvis Bedridden Right ischial pressure sore, stage 4 Smoker Osteomyelitis of right side of pelvis Bedridden Right ischial pressure sore, stage 4 Smoker Right ischial pressure sore, stage 4 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 Right ischial pressure sore, stage 4 Smoker Chief Complaint wound wound wound wound wound wound wound UPDATE H&P FOR COLOSTOMY wound wound wound wound wound Reason for Visit Osteomyelitis of rig ht side of pelvis Bedridden Right ischial pressure sore, stage 4 Smoker Osteomyelitis of right side of pelvis Bedridden Right ischial pressure sore, stage 4 Smoker Right ischial pressure sore, stage 4 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 Right ischial pressure sore, stage 4 Smoker 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 Right ischial pressure sore, stage 4 Smoker Chief Complaint wound wound wound wound UPDATE H&P FOR COLOSTOMY wound wound wound PREOP wound wound wound wound LAP DIVERTING SIGMOID COLOSTOMY LAP DIVERTING SIGMOID COLOSTOMY LAP DIVERTING SIGMOID COLOSTOMY LAP DIVERTING SIGMOID COLOSTOMY LAP DIVERTING SIGMOID COLOSTOMY Reason for Visit Osteomyelitis of rig ht side of pelvis Bedridden Right ischial pressure sore, stage 4 Smoker Right ischial pressure sore, stage 4 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 Right ischial pressure sore, stage 4 Smoker 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 Right ischial pressure sore, stage 4 Smoker 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 Right ischial pressure sore, stage 4 Smoker Nonhealing ulcer of right lower leg with fat layer exposed S/P colostomy Chief Complaint wound wound wound UPDATE H&P FOR COLOSTOMY wound wound wound PREOP wound wound wound wound LAP DIVERTING SIGMOID COLOSTOMY LAP DIVERTING SIGMOID COLOSTOMY LAP DIVERTING SIGMOID COLOSTOMY LAP DIVERTING SIGMOID COLOSTOMY LAP DIVERTING SIGMOID COLOSTOMY Reason for Visit Osteomyelitis of rig ht side of pelvis Bedridden Right ischial pressure sore, stage 4 Smoker Right ischial pressure sore, stage 4 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 Right ischial pressure sore, stage 4 Smoker 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 Right ischial pressure sore, stage 4 Smoker 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 Right ischial pressure sore, stage 4 Smoker Nonhealing ulcer of right lower leg with fat layer exposed S/P colostomy Chief Complaint wound UPDATE H&P FOR COLOSTOMY wound wound wound PREOP wound wound wound wound LAP DIVERTING SIGMOID COLOSTOMY LAP DIVERTING SIGMOID COLOSTOMY LAP DIVERTING SIGMOID COLOSTOMY LAP DIVERTING SIGMOID COLOSTOMY LAP DIVERTING SIGMOID COLOSTOMY wound wound F/U colostomy Reason for Visit Right ischial pressu re sore, stage 4 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 Right ischial pressure sore, stage 4 Smoker 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 Right ischial pressure sore, stage 4 Smoker 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 Right ischial pressure sore, stage 4 Smoker Nonhealing ulcer of right lower leg with fat layer exposed S/P colostomy 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 Right ischial pressure sore, stage 4 Smoker S/P colostomy Chief Complaint wound PREOP wound wound wound wound LAP DIVERTING SIGMOID COLOSTOMY LAP DIVERTING SIGMOID COLOSTOMY LAP DIVERTING SIGMOID COLOSTOMY LAP DIVERTING SIGMOID COLOSTOMY LAP DIVERTING SIGMOID COLOSTOMY wound wound F/U colostomy wound wound wound Reason for Visit Osteomyelitis of rig ht side of pelvis Wheelchair dependent Right ischial pressure sore, stage 4 Smoker 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 Right ischial pressure sore, stage 4 Smoker Nonhealing ulcer of right lower leg with fat layer exposed S/P colostomy 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 Right ischial pressure sore, stage 4 Smoker S/P colostomy 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 Right ischial pressure sore, stage 4 Smoker Chief Complaint wound wound LAP DIVERTING SIGMOID COLOSTOMY LAP DIVERTING SIGMOID COLOSTOMY LAP DIVERTING SIGMOID COLOSTOMY LAP DIVERTING SIGMOID COLOSTOMY LAP DIVERTING SIGMOID COLOSTOMY wound wound F/U colostomy wound wound wound wound PAIN AT [employer] wound Reason for Visit Osteomyelitis of rig ht side of pelvis Wheelchair dependent Right ischial pressure sore, stage 4 Smoker Nonhealing ulcer of right lower leg with fat layer exposed S/P colostomy 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 Right ischial pressure sore, stage 4 Smoker S/P colostomy 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 Right ischial pressure sore, stage 4 Smoker 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 Right ischial pressure sore, stage 4 Smoker Chief Complaint wound wound F/U colostomy wound wound wound wound PAIN AT [employer] wound wound wound wound Reason for Visit Osteomyelitis of rig ht side of pelvis Wheelchair dependent Right ischial pressure sore, stage 4 Smoker S/P colostomy 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 Right ischial pressure sore, stage 4 Smoker 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 Right ischial pressure sore, stage 4 Smoker 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 Right ischial pressure sore, stage 4 Smoker Chief Complaint wound wound wound PA[facility] AT [employer] wound wound wound wound wound wound wound Reason for Visit Osteomyelitis of rig ht side of pelvis Wheelchair dependent Right ischial pressure sore, stage 4 Smoker 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 Right ischial pressure sore, stage 4 Smoker 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 Right ischial pressure sore, stage 4 Smoker 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 Right ischial pressure sore, stage 4 Smoker Chief Complaint wound PAIN AT [employer] wound wound wound wound wound wound wound wound wound wound Reason for Visit Osteomyelitis of rig ht side of pelvis Wheelchair dependent Right ischial pressure sore, stage 4 Smoker 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 Right ischial pressure sore, stage 4 Smoker 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 Right ischial pressure sore, stage 4 Smoker 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 Right ischial pressure sore, stage 4 Smoker Chief Complaint wound wound wound wound wound wound wound wound wound wound wound wound Reason for Visit Osteomyelitis of rig ht side of pelvis Wheelchair dependent Right ischial pressure sore, stage 4 Smoker 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 Right ischial pressure sore, stage 4 Smoker 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 Right ischial pressure sore, stage 4 Smoker 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 Right ischial pressure sore, stage 4 Smoker Chief Complaint wound wound wound wound wound wound wound wound wound wound Cough/WHEEZING wound wound Reason for Visit Osteomyelitis of rig ht side of pelvis Wheelchair dependent Right ischial pressure sore, stage 4 Smoker 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 Right ischial pressure sore, stage 4 Smoker 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 Right ischial pressure sore, stage 4 Smoker Acute bronchitis 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 Right ischial pressure sore, stage 4 Smoker Chief Complaint Admit Date wound February 24, 2024 2:53pm wound February 24, 2024 3:58pm wound March 21, 2024 3:09pm wound March 21, 2024 6:50pm wound April 04, 2024 3: 36pm wound April 04, 2024 4: 50pm wound May 02, 2024 1 2:00pm wound May 02, 2024 2 :52pm wound May 30, 2024 3:13 pm wound May 30, 2024 6:37 pm CERVICAL SPINE June 03, 2024 2:01 pm RM 2 June 03, 2024 2:28 pm COMPLICATED URINARY TRACT INFECTION Wolf h 2024 12:06pm Reason for Visit Admit Date Right ischial pressure sore January 2:53pm Right ischial pressure sore, stage 4 Jan emb2023 2:53pm Right ischial pressure sore February 3:09pm Right ischial pressure sore, stage 4 Dec 2023 3:09pm Right ischial pressure sore April 04, 2024 3:36pm Right ischial pressure sore, stage 4 Alejo uary 2024 3:36pm Right ischial pressure sore April 2:52pm Right ischial pressure sore, stage 4 Feb ruary 2024 2:52pm Right ischial pressure sore May 30, 2 025 3:13pm Right ischial pressure sore, stage 4 Mar 2024 3:13pm Cervical myelopathy June 03, 2024 2:01 pm Fusion of spine, cervical region June 032024 2:01pm Thoracic myelopathy June 03, 2024 2:01 pm Acidosis, lactic June 09, 2024 12: 06pm Colostomy in place June 09, 2024 12: 06pm Complicated urinary tract infection Wolf h 2024 12:06pm Decubitus ulcer of right buttock, stage 3 June 09, 2024 12:06pm Hyperlipidemia June 09, 2024 12: 06pm Leukocytosis June 09, 2024 12: 06pm SIRS (systemic inflammatory response syn drome) June 09, 2024 12:06pm Spinal cord injury June 09, 2024 12: 06pm Bedridden June 09, 2024 12: 06pm Paraplegic spinal paralysis June 09, 2024 12:06pm Chief Complaint Admit Date wound February 24, 2024 2:53pm wound February 24, 2024 3:58pm wound March 21, 2024 3:09pm wound March 21, 2024 6:50pm wound April 04, 2024 3: 36pm wound April 04, 2024 4: 50pm wound May 02, 2024 1 2:00pm wound May 02, 2024 2 :52pm wound May 30, 2024 3:13 pm wound May 30, 2024 6:37 pm CERVICAL SPINE June 03, 2024 2:01 pm RM 2 June 03, 2024 2:28 pm COMPLICATED URINARY TRACT INFECTION Wolf h 2024 12:06pm COMPLICATED URINARY TRACT INFECTION Wolf h 2024 8:59am COMPLICATED URINARY TRACT INFECTION Wolf h 2024 12:42pm Chief Complaint Admit Date wound March 21, 2024 3:09pm wound March 21, 2024 6:50pm wound April 04, 2024 3: 36pm wound April 04, 2024 4: 50pm wound May 02, 2024 1 2:00pm wound May 02, 2024 2 :52pm wound May 30, 2024 6:37 pm CERVICAL SPINE June 03, 2024 2:01 pm RM 2 June 03, 2024 2:28 pm COMPLICATED URINARY TRACT INFECTION Wolf h 2024 12:06pm COMPLICATED URINARY TRACT INFECTION Wolf h 2024 8:59am COMPLICATED URINARY TRACT INFECTION Wolf h 2024 12:42pm COMPLICATED URINARY TRACT INFECTION Wolf h 2024 1:32pm CONCERN FOR ARRYTHMIA June 22, 2024 1 2:32pm wound June 27, 2024 3:3 0pm wound June 27, 2024 4:5 4pm Reason for Visit Admit Date Right ischial pressure sore February 3:09pm Right ischial pressure sore, stage 4 Dec ember 2023 3:09pm Right ischial pressure sore April 04, 2024 3:36pm Right ischial pressure sore, stage 4 Alejo celsa 2024 3:36pm Right ischial pressure sore April 2:52pm Right ischial pressure sore, stage 4 Feb ruary 2024 2:52pm Cervical myelopathy June 03, 2024 2:01 pm Fusion of spine, cervical region June 032024 2:01pm Thoracic myelopathy June 03, 2024 2:[address] June 09, 2024 12: 06pm Decubitus ulcer of right buttock, stage 3 June 09, 2024 12:06pm Hyperlipidemia June 09, 2024 12: 06pm Spinal cord injury June 09, 2024 12: 06pm Bedridden June 09, 2024 12: 06pm Paraplegic spinal paralysis June 09, 2024 12:06pm Acidosis, lactic June 09, 2024 12: 06pm Complicated urinary tract infection Wolf h 2024 12:06pm Leukocytosis June 09, 2024 12: 06pm SIRS (systemic inflammatory response syn drome) June 09, 2024 12:06pm Right ischial pressure sore June 27, 2024 3:30pm Right ischial pressure sore, stage 4 Mar 2024 3:30pm Chief Complaint Admit Date wound April 04, 2024 3: 36pm wound April 04, 2024 4: 50pm wound May 02, 2024 1 2:00pm wound May 02, 2024 2 :52pm wound May 30, 2024 6:37 pm CERVICAL SPINE June 03, 2024 2:01 pm RM 2 June 03, 2024 2:28 pm COMPLICATED URINARY TRACT INFECTION Wolf h 2024 12:06pm COMPLICATED URINARY TRACT INFECTION Wolf h 2024 8:59am COMPLICATED URINARY TRACT INFECTION Wolf h 2024 12:42pm COMPLICATED URINARY TRACT INFECTION Wolf 2024 1:32pm CONCERN FOR ARRYTHMIA June 22, 2024 1 2:32pm wound June 27, 2024 3:3 0pm wound June 27, 2024 4:5 4pm wound July 25, 2024 10: 14am wound July 26, 2024 9:5 0pm SEPSIS, COMPLICATED UTI July 29, 2024 9: 30pm SEPSIS, COMPLICATED UTI July 30, 2024 8: 28am SEPSIS, COMPLICATED UTI July 31, 2024 8: 03am SEPSIS, COMPLICATED UTI August 01, 2024 2: 19am lethargy August 02, 2024 10:51a m Reason for Visit Admit Date Right ischial pressure sore April 04, 2024 3:36pm Right ischial pressure sore, stage 4 Alejo celsa 2024 3:36pm Right ischial pressure sore April 2:52pm Right ischial pressure sore, stage 4 Feb ruary 2024 2:52pm Cervical myelopathy June 03, 2024 2:01 pm Fusion of spine, cervical region June 032024 2:01pm Thoracic myelopathy June 03, 2024 2:[address] June 09, 2024 12: 06pm Decubitus ulcer of right buttock, stage 3 June 09, 2024 12:06pm Hyperlipidemia June 09, 2024 12: 06pm Spinal cord injury June 09, 2024 12: 06pm Bedridden June 09, 2024 12: 06pm Paraplegic spinal paralysis June 09, 2024 12:06pm Acidosis, lactic June 09, 2024 12: 06pm Complicated urinary tract infection Wolf h 2024 12:06pm Leukocytosis June 09, 2024 12: 06pm SIRS (systemic inflammatory response syn drome) June 09, 2024 12:06pm Right ischial pressure sore June 27, 2024 3:30pm Right ischial pressure sore, stage 4 Mar 2024 3:30pm Right ischial pressure sore July 25, 2024 10:14am Right ischial pressure sore, stage 4 Apr il 2024 10:14am Acidosis, lactic July 29, 2024 9:30pm Catheter-associated urinary tract infect ion July 29, 2024 9:30pm Complicated UTI (urinary tract infection ) July 29, 2024 9:30pm Encephalopathy July 29, 2024 9:30pm Urinary tract infection July 29, 2024 9: 30pm Chronic suprapubic catheter July 29 9:30pm Chief Complaint Admit Date wound May 02, 2024 1 2:00pm wound May 02, 2024 2 :52pm wound May 30, 2024 6:37 pm CERVICAL SPINE June 03, 2024 2:01 pm RM 2 June 03, 2024 2:28 pm COMPLICATED URINARY TRACT INFECTION Wolf h 2024 12:06pm COMPLICATED URINARY TRACT INFECTION Wolf h 2024 8:59am COMPLICATED URINARY TRACT INFECTION Wolf h 2024 12:42pm COMPLICATED URINARY TRACT INFECTION Wolf h 2024 1:32pm CONCERN FOR ARRYTHMIA June 22, 2024 1 2:32pm wound June 27, 2024 3:3 0pm wound June 27, 2024 4:5 4pm wound July 25, 2024 10: 14am wound July 26, 2024 9:5 0pm SEPSIS, COMPLICATED UTI July 29, 2024 9: 30pm SEPSIS, COMPLICATED UTI July 30, 2024 8: 28am SEPSIS, COMPLICATED UTI July 31, 2024 8: 03am SEPSIS, COMPLICATED UTI August 01, 2024 2: 19am lethargy August 02, 2024 10:51a m not feling well August 07, 2024 5:42p m Reason for Visit Admit Date Right ischial pressure sore April 2:52pm Right ischial pressure sore, stage 4 Feb ruary 2024 2:52pm Cervical myelopathy June 03, 2024 2:01 pm Fusion of spine, cervical region June 032024 2:01pm Thoracic myelopathy June 03, 2024 2:01 pm Decubitus ulcer of right buttock, stage 3 June 09, 2024 12:06pm Bedridden June 09, 2024 12: 06pm Acidosis, lactic June 09, 2024 12: 06pm Complicated urinary tract infection Wolf h 2024 12:06pm Leukocytosis June 09, 2024 12: 06pm Colostomy in place June 09, 2024 12: 06pm Hyperlipidemia June 09, 2024 12: 06pm Paraplegic spinal paralysis June 09, 2024 12:06pm Spinal cord injury June 09, 2024 12: 06pm SIRS (systemic inflammatory response syn drome) June 09, 2024 12:06pm Right ischial pressure sore June 27, 2024 3:30pm Right ischial pressure sore, stage 4 Mar 2024 3:30pm Right ischial pressure sore July 25, 2024 10:14am Right ischial pressure sore, stage 4 Apr 2024 10:14am Acidosis, lactic July 29, 2024 9:30pm Catheter-associated urinary tract infect ion July 29, 2024 9:30pm Complicated UTI (urinary tract infection ) July 29, 2024 9:30pm Encephalopathy July 29, 2024 9:30pm Urinary tract infection July 29, 2024 9: 30pm Chronic suprapubic catheter July 29 9:30pm Chief Complaint Admit Date wound May 30, 2024 6:37 pm CERVICAL SPINE June 03, 2024 2:01 pm RM 2 June 03, 2024 2:28 pm COMPLICATED URINARY TRACT INFECTION Wolf h 2024 12:06pm COMPLICATED URINARY TRACT INFECTION Wolf h 2024 8:59am COMPLICATED URINARY TRACT INFECTION Wolf h 2024 12:42pm COMPLICATED URINARY TRACT INFECTION Wolf h 2024 1:32pm 30 DAY MONITOR June 22, 2024 8:0 0am CONCERN FOR ARRYTHMIA June 22, 2024 1 2:32pm wound June 27, 2024 3:3 0pm wound June 27, 2024 4:5 4pm wound July 25, 2024 10: 14am wound July 25, 2024 12: 00pm SEPSIS, COMPLICATED UTI July 29, 2024 9: 30pm SEPSIS, COMPLICATED UTI July 30, 2024 8: 28am SEPSIS, COMPLICATED UTI July 31, 2024 8: 03am SEPSIS, COMPLICATED UTI August 01, 2024 2: 19am lethargy August 02, 2024 10:51a m not feling well August 07, 2024 5:42p m wound August 29, 2024 2:27p m wound August 29, 2024 6:20p m CERVICAL SPINE September 16, 2024 2:45 pm Reason for Visit Admit Date Cervical myelopathy June 03, 2024 2:01 pm Fusion of spine, cervical region June 032024 2:01pm Thoracic myelopathy June 03, 2024 2:01 pm Decubitus ulcer of right buttock, stage 3 June 09, 2024 12:06pm Bedridden June 09, 2024 12: 06pm Acidosis, lactic June 09, 2024 12: 06pm Complicated urinary tract infection Wolf 2024 12:06pm Leukocytosis June 09, 2024 12: 06pm Colostomy in place June 09, 2024 12: 06pm Hyperlipidemia June 09, 2024 12: 06pm Paraplegic spinal paralysis June 09, 2024 12:06pm Spinal cord injury June 09, 2024 12: 06pm SIRS (systemic inflammatory response syn drome) June 09, 2024 12:06pm Right ischial pressure sore June 27, 2024 3:30pm Right ischial pressure sore, stage 4 [facility] 2024 3:30pm Right ischial pressure sore July 25, 2024 10:14am Right ischial pressure sore, stage 4 Apr il 2024 10:14am Acidosis, lactic July 29, 2024 9:30pm Catheter-associated urinary tract infect ion July 29, 2024 9:30pm Complicated UTI (urinary tract infection ) July 29, 2024 9:30pm Encephalopathy July 29, 2024 9:30pm Urinary tract infection July 29, 2024 9: 30pm Chronic suprapubic catheter July 29 9:30pm Right ischial pressure sore August 29 2:27pm Right ischial pressure sore, stage 4 Mike e 2024 2:27pm Scoliosis September 16, 2024 2:45 pm Reason for Visit Admit Date Cervical myelopathy June 03, 2024 2:01 pm Fusion of spine, cervical region June 032024 2:01pm Thoracic myelopathy June 03, 2024 2:01 pm Decubitus ulcer of right buttock, stage 3 June 09, 2024 12:06pm Bedridden June 09, 2024 12: 06pm Acidosis, lactic June 09, 2024 12: 06pm Complicated urinary tract infection Wolf h 2024 12:06pm Leukocytosis June 09, 2024 12: 06pm Colostomy in place June 09, 2024 12: 06pm Hyperlipidemia June 09, 2024 12: 06pm Paraplegic spinal paralysis June 09, 2024 12:06pm Spinal cord injury June 09, 2024 12: 06pm SIRS (systemic inflammatory response syn drome) June 09, 2024 12:06pm Right ischial pressure sore June 27, 2024 3:30pm Right ischial pressure sore, stage 4 Mar 2024 3:30pm Right ischial pressure sore July 25, 2024 10:14am Right ischial pressure sore, stage 4 Apr il 2024 10:14am Acidosis, lactic July 29, 2024 9:30pm Catheter-associated urinary tract infect ion July 29, 2024 9:30pm Complicated UTI (urinary tract infection ) July 29, 2024 9:30pm Encephalopathy July 29, 2024 9:30pm Urinary tract infection July 29, 2024 9: 30pm Chronic suprapubic catheter July 29 9:30pm Right ischial pressure sore August 29 2:27pm Right ischial pressure sore, stage 4 Mike e 2024 2:27pm Scoliosis September 16, 2024 2:45 pm Cervical myelopathy September 16, 2024 2:45 pm Fusion of spine, cervical region September [id number] 2:45pm Thoracic myelopathy September 16, 2024 2:45 pm Additional Source Comments (unrecognized sect ion and content) No Status Records FoundNo Status Records FoundNo Status Records FoundNo Status Records FoundNo Status Records FoundNo Status Records Found INFORMATION SOURCE (unrecogn ized section and content) DATE CREATED AUTHOR 06/25/2018 [facility] DATE CREATED AUTHOR AUTHOR'S ORGANIZ ATION 06/25/2018 [facility] DATE CREATED AUTHOR AUTHOR'S ORGANIZ ATION 02/03/2019 [facility] DATE CREATED AUTHOR AUTHOR'S ORGANIZ ATION 05/06/2021 [facility] DATE CREATED AUTHOR AUTHOR'S ORGANIZ ATION 09/28/2024 [facility] DATE CREATED AUTHOR AUTHOR'S ORGANIZ ATION 09/28/2024 [facility] Goals (unrecognized section and content) Goals may be documented in a n alternate sectionGoals may be documented in an alternate sectionGoals may be documented in an alternate sectionGoals may be documented in an alternate sectionGoals may be documented in an alternate sectionGoals may be documented in an alternate sectionGoals may be documented in an alternate sectionGoals may be documented in an alternate sectionGoals may be documented in an alternate section Care Teams (unrecognized sec tion and content) Team Status: Active Member Role Status Dates Dr. Nathanael Cardona MD Primary Care Provider Active Team Status: Active Member Role Status Dates Dr. Nathanael Cardona MD Primary Care Provider Active Start: May 02, 2024 Kemi Rubio LUBE MAN, LUBE MAN-C Other Provider Active Start: May 02, 2024 Dr. Luca Nayak MD Attending Provider Active Start: May 02, 2024 Dr. Luca Nayak MD Referring Provider Active Start: May 02, 2024 Team Status: Inactive Member Role Status Dates CARLOS Jauregui Referring Provider Active Star t: May 02, 2024 End: May 27, 2024 Dr. Nathanael Cardona MD Primary Care Provider Active Start: May 02, 2024 End: May 27, 2024 Kemi Rubio LUBE MAN, LUBE MAN-C Attending Provider Active Start: May 02, 2024 End: May 27, 2024 Team Status: Active Member Role Status Dates Dr. Nathanael Cardona MD Primary Care Provider Active Start: May 30, 2024 Dr. Luca Nayak MD Attending Provider Active Start: May 30, 2024 Dr. Luca Nayak MD Referring Provider Active Start: May 30, 2024 Dr. Luca Nayak MD Other Provider Active Star t: May 30, 2024 Team Status: Inactive Member Role Status Dates Dr. Nathanael Cardona MD Primary Care Provider Active Start: June 03, 2024 End: June 03, 2024 Dr. Nathanael Cardona MD Referring Provider Active Start: June 03, 2024 End: June 03, 2024 Dr. Edmundo Quevedo MD Attending Provider Active Start: June 03, 2024 End: June 03, 2024 Team Status: Inactive Member Role Status Dates Dr. Nathanael Cardona MD Primary Care Provider Active Start: June 03, 2024 End: June 03, 2024 Dr. Alex Mancera MD Attending Provider Active S tart: June 03, 2024 End: June 03, 2024 Team Status: Inactive Member Role Status Dates Dr. Nathanael Cardona MD Primary Care Provider Active Start: June 09, 2024 End: June 12, 2024 Dr. Hebert Saavedra MD Emergency Provider Active Sta rt: June 09, 2024 End: June 12, 2024 Dr. Juliana Shaw MD Admit Provider Active Star t: June 09, 2024 End: June 12, 2024 Dr. Juliana Shaw MD Attending Provider Active Start: June 09, 2024 End: June 12, 2024 Team Status: Active Member Role Status Dates Dr. Nathanael Cardona MD Primary Care Provider Active Start: June 10, 2024 Dr. Hebert Saavedra MD Emergency Provider Active Sta rt: June 10, 2024 Dr. Juliana Shaw MD Admit Provider Active Star t: June 10, 2024 Dr. Juliana Shaw MD Attending Provider Active Start: June 10, 2024 Dr. Juliana Shaw MD Other Provider Active Star t: June 10, 2024 Team Status: Active Member Role Status Dates Dr. Nathanael Cardona MD Primary Care Provider Active Start: June 11, 2024 Dr. Hebert Saavedra MD Emergency Provider Active Sta rt: June 11, 2024 Dr. Juliana Shaw MD Admit Provider Active Star t: June 11, 2024 Dr. Juliana Shaw MD Attending Provider Active Start: June 11, 2024 Dr. Juliaan Shaw MD Other Provider Active Star t: June 11, 2024 Team Status: Active Member Role Status Dates Dr. Nathanael Cardona MD Primary Care Provider Active Start: June 12, 2024 Dr. Hebert Saavedra MD Emergency Provider Active Sta rt: June 12, 2024 Dr. Juliana Shaw MD Admit Provider Active Star t: June 12, 2024 Dr. Juliana Shaw MD Attending Provider Active Start: June 12, 2024 Dr. Juliana Shaw MD Other Provider Active Star t: June 12, 2024 Team Status: Active Member Role Status Dates Dr. Nathanael Cardona MD Primary Care Provider Active Start: June 22, 2024 Dr. Juliana Shaw MD Attending Provider Active Start: June 22, 2024 Dr. Juliana Shaw MD Referring Provider Active Start: June 22, 2024 Team Status: Inactive Member Role Status Dates CARLOS Jauregui Referring Provider Active Star t: June 27, 2024 End: June 27, 2024 Dr. Nathanael Cardona MD Primary Care Provider Active Start: June 27, 2024 End: June 27, 2024 Dr. Luca Nayak MD Attending Provider Active Start: June 27, 2024 End: June 27, 2024 Team Status: Active Member Role Status Dates CARLOS Jauregui Referring Provider Active Star t: June 27, 2024 Dr. Nathanael Cardona MD Primary Care Provider Active Start: June 27, 2024 Dr. Luca Nayak MD Attending Provider Active Start: June 27, 2024 Dr. Luca Nayak MD Other Provider Active Star t: June 27, 2024 Team Status: Inactive Member Role Status Dates Dr. Nathanael Cardona MD Primary Care Provider Active Start: July 11, 2024 End: July 11, 2024 Dr. Nathanael Cardona MD Attending Provider Active Start: July 11, 2024 End: July 11, 2024 Dr. Nathanael Cardona MD Referring Provider Active Start: July 11, 2024 End: July 11, 2024 Team Status: Inactive Member Role Status Dates CARLOS Jauregui Referring Provider Active Star t: July 25, 2024 End: July 27, 2024 Dr. Nathanael Cardona MD Primary Care Provider Active Start: July 25, 2024 End: July 27, 2024 Dr. Luca Nayak MD Attending Provider Active Start: July 25, 2024 End: July 27, 2024 Team Status: Active Member Role Status Dates CARLOS Jauregui Referring Provider Active Star t: July 26, 2024 Dr. Nathanael Cardona MD Primary Care Provider Active Start: July 26, 2024 Dr. Luca Nayak MD Attending Provider Active Start: July 26, 2024 Dr. Luca Nayak MD Other Provider Active Star t: July 26, 2024 Team Status: Inactive Member Role Status Dates Dr. Nathanael Cardona MD Primary Care Provider Active Start: July 29, 2024 End: August 01, 2024 Dr. Andre Ferreira DO Emergency Provider Active Start: July 29, 2024 End: August 01, 2024 Dr. Isha Zurita MD Admit Provider Active St art: July 29, 2024 End: August 01, 2024 Dr. Isha Zurita MD Referring Provider Active Start: July 29, 2024 End: August 01, 2024 Dr. Isha Zurita MD Other Provider Active St art: July 29, 2024 End: August 01, 2024 Dr. Basilio Dill DO Attending Provider Active Start: July 29, 2024 End: August 01, 2024 Dr. Miller Blank MD Other Provider Active Star t: July 29, 2024 End: August 01, 2024 Dr. Felix Larios MD Other Provider Active Start: July 29, 2024 End: August 01, 2024 Team Status: Active Member Role Status Dates Dr. Nathanael Cardona MD Primary Care Provider Active Start: July 30, 2024 Dr. Andre Ferreira DO Emergency Provider Active Start: July 30, 2024 Dr. Isha Zurita MD Admit Provider Active St art: July 30, 2024 Dr. Isha Zurita MD Other Provider Active St art: July 30, 2024 Dr. Miller Blank MD Attending Provider Active Start: July 30, 2024 Dr. Miller Blank MD Other Provider Active Star t: July 30, 2024 Team Status: Active Member Role Status Dates Dr. Nathanael Cardona MD Primary Care Provider Active Start: July 31, 2024 Dr. Andre Ferreira DO Emergency Provider Active Start: July 31, 2024 Dr. Isha Zurita MD Admit Provider Active St art: July 31, 2024 Dr. Isha Zurita MD Other Provider Active St art: July 31, 2024 Dr. Miller Blank MD Attending Provider Active Start: July 31, 2024 Dr. Miller Blank MD Other Provider Active Star t: July 31, 2024 Team Status: Active Member Role Status Dates Dr. Nathanael Cardona MD Primary Care Provider Active Start: August 01, 2024 Dr. Andre Ferreira DO Emergency Provider Active Start: August 01, 2024 Dr. Isha Zurita MD Admit Provider Active St art: August 01, 2024 Dr. Isha Zurita MD Attending Provider Active Start: August 01, 2024 Dr. Isha Zurita MD Other Provider Active St art: August 01, 2024 Dr. Miller Blank MD Other Provider Active Star t: August 01, 2024 Team Status: Inactive Member Role Status Dates Dr. Nathanael Cardona MD Primary Care Provider Active Start: August 02, 2024 End: August 02, 2024 Dr. Hebert Saavedra MD Attending Provider Active Sta rt: August 02, 2024 End: August 02, 2024 Dr. Hebert Saavedra MD Emergency Provider Active Sta rt: August 02, 2024 End: August 02, 2024 Team Status: Inactive Member Role Status Dates Dr. Nathanael Cardona MD Primary Care Provider Active Start: August 07, 2024 End: August 07, 2024 Dr. Kit Harris MD Emergency Provider Active Start: August 07, 2024 End: August 07, 2024 Team Status: Inactive Member Role Status Dates CARLOS Jauregui Referring Provider Active Star t: February 24, 2024 End: February 27, 2024 Dr. Nathanael Cardona MD Primary Care Provider Active Start: February 24, 2024 End: February 27, 2024 Dr. Luca Nayak MD Attending Provider Active Start: February 24, 2024 End: February 27, 2024 Team Status: Active Member Role Status Dates Dr. Nathanael Cardona MD Primary Care Provider Active Start: February 24, 2024 Dr. Luca Nayak MD Other Provider Active Star t: February 24, 2024 Kemibehzad Rubio LUBE MAN, LUBE MAN-C Attending Provider Active Start: February 24, 2024 Kemibehzad Rubio LUBE MAN, LUBE MAN-C Referring Provider Active Start: February 24, 2024 Team Status: Inactive Member Role Status Dates CARLOS Jauregui Referring Provider Active Star t: March 21, 2024 End: March 29, 2024 Dr. Nathanael Cardona MD Primary Care Provider Active Start: March 21, 2024 End: March 29, 2024 Kemi Rubio LUBE MAN, LUBE MAN-C Attending Provider Active Start: March 21, 2024 End: March 29, 2024 Team Status: Active Member Role Status Dates Dr. Nathanael Cardona MD Primary Care Provider Active Start: March 21, 2024 Kemi Rubio LUBE MAN, LUBE MAN-C Other Provider Active Start: March 21, 2024 Dr. Luca Nayak MD Attending Provider Active Start: March 21, 2024 Dr. Luca Nayak MD Referring Provider Active Start: March 21, 2024 Team Status: Inactive Member Role Status Dates Dr. Nathanael Cardona MD Primary Care Provider Active Start: March 24, 2024 End: March 24, 2024 Dr. Nathanael Cardona MD Referring Provider Active Start: March 24, 2024 End: March 24, 2024 Kemi Rubio LUBE MAN, LUBE MAN-C Attending Provider Active Start: March 24, 2024 End: March 24, 2024 Team Status: Inactive Member Role Status Dates CARLOS Jauregui Referring Provider Active Star t: April 04, 2024 End: April 29, 2024 Dr. Nathanael Cardona MD Primary Care Provider Active Start: April 04, 2024 End: April 29, 2024 Kemi Rubio LUBE MAN, LUBE MAN-C Attending Provider Active Start: April 04, 2024 End: April 29, 2024 Team Status: Active Member Role Status Dates Dr. Nathanael Cardona MD Primary Care Provider Active Start: April 04, 2024 Kemi Rubio LUBE MAN, LUBE MAN-C Other Provider Active Start: April 04, 2024 Dr. Luca Nayak MD Attending Provider Active Start: April 04, 2024 Dr. Luca Nayak MD Referring Provider Active Start: April 04, 2024 Team Status: Active Member Role Status Dates CARLOS Jauregui Referring Provider Active Star t: May 30, 2024 Dr. Nathanael Cardona MD Primary Care Provider Active Start: May 30, 2024 Dr. Luca Nayak MD Attending Provider Active Start: May 30, 2024 Team Status: Active Member Role Status Dates CARLOS Jauregui Referring Provider Active Star t: May 30, 2024 Dr. Nathanael Cardona MD Primary Care Provider Active Start: May 30, 2024 Dr. Luca Nayak MD Attending Provider Active Start: May 30, 2024 Dr. Luca Nayak MD Other Provider Active Star t: May 30, 2024 Team Status: Active Member Role Status Dates Dr. Nathanael Cardona MD Primary Care Provider Active Start: June 09, 2024 Dr. Hebert Saavedra MD Emergency Provider Active Sta rt: June 09, 2024 Dr. Juliana Shaw MD Admit Provider Active Star t: June 09, 2024 Dr. Juliana Shaw MD Attending Provider Active Start: June 09, 2024 Team Status: Active Member Role Status Dates Kemi Rubio LUBE MAN, LUBE MAN-C Attending Pro vider, Referring Provider, Other Provider Active No Primary Care Physician Primary Care Provider Active Team Status: Active Member Role Status Dates Dr. Nathanael Cardona MD Primary Care Provider Active Dr. Chas Paiz MD Attending Provider Active Dr. Kari Romero MD Referring Provider Active Team Status: Active Member Role Status Dates Dr. Kari Romero MD Attending Provide r, Referring Provider, Other Provider Active Dr. Nathanael Cardona MD Primary Care Provider Active Team Status: Active Member Role Status Dates Dr. Kari Romero MD Admit Provider, R eferring Provider, Other Provider Active Dr. Nathanael Cardona MD Primary Care Provider Active Dr. Nakita Arroyo MD Attending Provider Active Team Status: Active Member Role Status Dates Dr. Kari Romero MD Admit Provider, A ttending Provider, Referring Provider, Other Provider Active Dr. Nathanael Cardona MD Primary Care Provider Active Team Status: Active Member Role Status Dates Kemi Rubio LUBE MAN, LUBE MAN-C Attending Pro vider, Referring Provider, Other Provider Active Dr. Nathanael Cardona MD Primary Care Provider Active Team Status: Inactive Member Role Status Dates Dr. Nathanael Cardona MD Primary Care Provider, Referr ing Provider Active Dr. Kari Romero MD Attending Provider Active Team Status: Inactive Member Role Status Dates Dr. Kari Romero MD Admit Provider, A ttending Provider, Referring Provider Active Dr. Nathanael Cardona MD Primary Care Provider Active Team Status: Inactive Member Role Status Dates CARLOS Jauregui Referring Provider Active Kemi E Ramiro LUBE MAN, LUBE MAN-C Attending Provider Active No Primary Care Physician Primary Care Provider Active Team Status: Inactive Member Role Status Dates CARLOS Jauregui Referring Provider Active Kemi E Ramiro LUBE MAN, LUBE MAN-C Attending Provider Active Dr. Nathanael Cardona MD Primary Care Provider Active Team Status: Inactive Member Role Status Dates No Primary Care Physician Primary Care Provider, Refer ring Provider Active Dr. Kari Romero MD Attending Provider Active Team Status: Inactive Member Role Status Dates CARLOS Orozco Referring Provider Active Kemi E Ramiro LUBE MAN, LUBE MAN-C Attending Provider Active No Primary Care Physician Primary Care Provider Active Team Status: Active Member Role Status Dates No Primary Care Physician Primary Care Provider Active Team Status: Active Member Role Status Dates Dr. Nathanael Cardona MD Primary Care Provider Active Cristy Verma PA Referring Provider Active Kemi E Ramiro LUBE MAN, LUBE MAN-C Attending Provider, Other P rovider Active Team Status: Active Member Role Status Dates Dr. Kari Romero MD Attending Provider, Other Provi inge Active No Primary Care Physician Primary Care Provider, Refer ring Provider Active Team Status: Active Member Role Status Dates CARLOS Orozco Referring Provider Active Kemi E Ramiro LUBE MAN, LUBE MAN-C Attending Provider, Other P rovider Active No Primary Care Physician Primary Care Provider Active Team Status: Inactive Member Role Status Dates Dr. Nathanael Cardona MD Primary Care Provider Active Cristy Verma PA Referring Provider Active Kemi E Ramiro LUBE MAN, LUBE MAN-C Attending Provider Active Team Status: Inactive Member Role Status Dates Dr. Kari Romero MD Attending Provider Active No Primary Care Physician Primary Care Provider, Refer ring Provider Active Team Status: Active Member Role Status Dates Dr. Nathanael Cardona MD Primary Care Provider Active Dr. Popeye Messina MD Admit Provider, A ttending Provider, Referring Provider, Other Provider Active Dr. Kari Romero MD Other Provider Active Team Status: Inactive Member Role Status Dates Dr. Nathanael Cardona MD Primary Care Provider Active Dr. Ted Singh DO Attending Provider, Emergency Provide r Active Team Status: Active Member Role Status Dates Dr. Nathanael Carodna MD Primary Care Provider Active Cristy GONZALEZ PA Attending Prov ider, Referring Provider, Other Provider Active Team Status: Active Member Role Status Dates Dr. Nathanael Cardona MD Primary Care Provider Active CARLOS Ndiaye Other Provider Active Dr. Popeye Messina MD Attending Provider, Referring P rovider Active Team Status: Active Member Role Status Dates Dr. Nathanael Cardona MD Primary Care Provider Active Dr. Popeye Messina MD Attending Provide r, Referring Provider, Other Provider Active Team Status: Active Member Role Status Dates Dr. Nathanael Cardona MD Primary Care Provider Active Dr. Popeye Messina MD Admit Provider, R eferring Provider, Other Provider Active Dr. Kari Romero MD Attending Provider, Other Provi inge Active Team Status: Active Member Role Status Dates Dr. Nathanael Cardona MD Primary Care Provider Active Dr. Popeye Messina MD Admit Provider, R eferring Provider, Other Provider Active Dr. Kari Romero MD Other Provider Active Kemi Rubio LUBE MAN, LUBE MAN-C Attending Provider Active Team Status: Inactive Member Role Status Dates Dr. Nathanael Cardona MD Primary Care Provider Active Dr. Basilio Basurto DO Attending Provider, Emergency P rovider Active Team Status: Inactive Member Role Status Dates Dr. Nathanael Cardona MD Primary Care Provider Active Cristy GONZALEZ PA Attending Provider, Referrin g Provider Active Team Status: Active Member Role Status Dates Dr. Nathanael Cardona MD Primary Care Provider Active Dr. Popeye Messina MD Admit Provider, A ttending Provider, Referring Provider Active Dr. Kari Romero MD Other Provider Active Team Status: Inactive Member Role Status Dates Dr. Nathanael Cardona MD Primary Care Provider Active Dr. Popeye Messina MD Admit Provider, A ttending Provider, Referring Provider Active Dr. Kari Romero MD Other Provider Active Team Status: Inactive Member Role Status Dates Dr. Nathanael Cardona MD Primary Care Provider Active Dr. Tde Singh DO Emergency Provider Active Team Status: Active Member Role Status Dates Dr. Nathanael Cardona MD Primary Care Provider Active Dr. Deshawn Mason MD Attending Provider Activ e Dr. Popeye Messina MD Referring Provider Active Team Status: Active Member Role Status Dates Dr. Nathanael Cardona MD Primary Care Provider Active Cristy Verma PA, PA Referring Provider Active Kemi Workmanell LUBE MAN, LUBE MAN-C Attending Provider, Other P rovider Active Team Status: Inactive Member Role Status Dates Dr. Nathanael Cardona MD Primary Care Provider Active Cristy Verma PA, PA Referring Provider Active Kemibehzad Workmanell LUBE MAN, LUBE MAN-C Attending Provider Active Team Status: Active Member Role Status Dates Dr. Nathanael Cardona MD Primary Care Provider Active Cristy Verma PA, PA Referring Provider Active Kemibehzad Earlyndell LUBE MAN, LUBE MAN-C Attending Provider Active Team Status: Active Member Role Status Dates Cristy Verma PA, PA Referring Provider Active Kemibehzad Workmanell LUBE MAN, LUBE MAN-C Attending Provider, Other P rovider Active No Primary Care Physician Primary Care Provider Active Team Status: Inactive Member Role Status Dates Cristy GONZALEZ, PA Referring Provider Active Kemibehzad Earlyndell LUBE MAN, LUBE MAN-C Attending Provider Active No Primary Care Physician Primary Care Provider Active Team Status: Active Member Role Status Dates Cristy Verma PA Referring Provider Active Kemi Earlyndell LUBE MAN, LUBE MAN-C Attending Provider Active No Primary Care Physician Primary Care Provider Active Team Status: Active Member Role Status Dates CARLOS Jauregui Referring Provider Active Kemi Workmanell LUBE MAN, LUBE MAN-C Attending Provider, Other P rovider Active Dr. Nathanael Cardona MD Primary Care Provider Active Team Status: Inactive Member Role Status Dates Dr. Nathanael Cardona MD Primary Care Pr ovider, Attending Provider, Referring Provider Active Team Status: Active Member Role Status Dates CARLOS Jauregui Referring Provider Active Kemi Rubio LUBE MAN, LUBE MAN-C Attending Provider Active Dr. 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 Nathanael Cardona MD Primary Care Provider Active Dr. Popeye Messina MD Attending Provider, Referring Lelia gonzalez Active Team Status: Inactive Member Role Status Dates Dr. 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 Relationship Specialty Start Date End Date Nathanael Cardona MD [address] [place] [phone] PCP - General Family Medicine 03/06/23 Zackery Carmona MD [address] [address] Surgeon Urology 08/19/23 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 Relationship Specialty Start Date End Date Nathanael Cardona MD [address] [place] [phone] PCP - General Family Medicine 03/06/23 Zackery Carmona MD [address] [address] Surgeon Urology 08/19/23 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 Relationship Specialty Start Date End Date Nathanael Cardona MD [address] [place] [phone] PCP - General Family Medicine 03/06/23 Zackery Carmona MD [address] [place] [address] Surgeon Urology 08/19/23 Rikki Casas MD [address] [place] [address] Surgeon Urology 10/23/23 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 Relationship Specialty Start Date End Date Nathanael Cardona MD [address] [place] [phone] PCP - General Family Medicine 03/06/23 Zackery Carmona MD [address] [place] [address] Surgeon Urology 08/19/23 Rikki Casas MD [address] [place] [address] Surgeon Urology 10/23/23 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 Relationship Specialty Start Date End Date Nathanael Cardona MD [address] [place] [phone] PCP - General Family Medicine 03/06/23 Zackery Carmona MD [address] [place] [address] Surgeon Urology 08/19/23 Rikki Casas MD [address] [place] [address] Surgeon Urology 10/23/23 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 Relationship Specialty Start Date End Date Nathanael Cardona MD [address] [place] [phone] PCP - General Family Medicine 03/06/23 Zackery Carmona MD [address] [facility] [address] [place] [address] Surgeon Urology 08/19/23 Rikki Casas MD [address] [facility] [address] [place] [phone] Surgeon Urology 10/23/23 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 Relationship Specialty Start Date End Date Nathanael Cardona MD [address] [place] [phone] PCP - General Family Medicine 03/06/23 Zackery Carmona MD [address] [facility] [address] [place] [address] Surgeon Urology 08/19/23 Rikki Casas MD [address] [facility] [address] [place] [phone] Surgeon Urology 10/23/23 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 Relationship Specialty Start Date End Date Nathanael Cardona MD [address] [place] [phone] PCP - General Family Medicine 03/06/23 Zackery Carmona MD [address] [facility] [address] [place] [address] Surgeon Urology 08/19/23 Rikki Casas MD [address] [facility] [address] [place] [address] Surgeon Urology 10/23/23 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 Relationship Specialty Start Date End Date Nathanael Cardona MD [address] [facility] [address] [place] [phone] PCP - General Family Medicine 03/06/23 Zackery Carmona MD [address] [place], [place] [id number] Surgeon Urology 08/19/23 Rikki Casas MD [address] [place] [address] Surgeon Urology 10/23/23 Team Status: Active Member Role Status Dates Dr. Nathanael Cardona MD Primary Care Provider Active Start: July 31, 2024 Dr. Andre Ferreira DO Emergency Provider Active Start: July 31, 2024 Dr. Isha Zurita MD Admit Provider Active St art: July 31, 2024 Dr. Isha Zurita MD Referring Provider Active Start: July 31, 2024 Dr. Isha Zurita MD Other Provider Active St art: July 31, 2024 Dr. Miller Blank MD Attending Provider Active Start: July 31, 2024 Dr. Miller Blank MD Other Provider Active Star t: July 31, 2024 Team Status: Active Member Role Status Dates Dr. Nathanael Cardona MD Primary Care Provider Active Start: August 01, 2024 Dr. Andre Ferreira DO Emergency Provider Active Start: August 01, 2024 Dr. Isha Zurita MD Admit Provider Active St art: August 01, 2024 Dr. Isha Zurita MD Attending Provider Active Start: August 01, 2024 Dr. Isha Zurita MD Referring Provider Active Start: August 01, 2024 Dr. Isha Zurita MD Other Provider Active St art: August 01, 2024 Dr. Miller Blank MD Other Provider Active Star t: August 01, 2024 Team Status: Inactive Member Role Status Dates Dr. Nathanael Cardona MD Primary Care Provider Active Start: August 02, 2024 End: August 02, 2024 Dr. Hebert Saavedra MD Emergency Provider Active Sta rt: August 02, 2024 End: August 02, 2024 Team Status: Active Member Role Status Dates Dr. Nathanael Cardona MD Primary Care Provider Active Start: June 22, 2024 Dr. Alex Mancera MD Attending Provider Active S tart: June 22, 2024 Dr. Juliana Shaw MD Referring Provider Active Start: June 22, 2024 Team Status: Active Member Role Status Dates Dr. Nathanael Cardona MD Primary Care Provider Active Start: July 25, 2024 Dr. Luca Nayak MD Attending Provider Active Start: July 25, 2024 Dr. Luca Nayak MD Referring Provider Active Start: July 25, 2024 Dr. Luca Nayak MD Other Provider Active Star t: July 25, 2024 Team Status: Inactive Member Role Status Dates Dr. Nathanael Cardona MD Primary Care Provider Active Start: August 07, 2024 End: August 07, 2024 Dr. Kit Harris MD Attending Provider Active Start: August 07, 2024 End: August 07, 2024 Dr. Kit Harris MD Emergency Provider Active Start: August 07, 2024 End: August 07, 2024 Team Status: Active Member Role Status Dates CARLOS Jauregui Referring Provider Active Star t: August 29, 2024 Dr. Nathanael Cardona MD Primary Care Provider Active Start: August 29, 2024 Dr. Luca Nayak MD Attending Provider Active Start: August 29, 2024 Team Status: Active Member Role Status Dates CARLOS Jauregui Referring Provider Active Star t: August 29, 2024 Dr. Nathanael Cardona MD Primary Care Provider Active Start: August 29, 2024 Dr. Luca Nayak MD Attending Provider Active Start: August 29, 2024 Dr. Luca Nayak MD Other Provider Active Star t: August 29, 2024 Team Status: Inactive Member Role Status Dates Dr. Nathanael Cardona MD Primary Care Provider Active Start: September 16, 2024 End: September 16, 2024 Dr. Nathanael Cardona MD Referring Provider Active Start: September 16, 2024 End: September 16, 2024 Dr. Edmundo Quevedo MD Attending Provider Active Start: September 16, 2024 End: September 16, 2024 Team Status: Active Member Role/Relationship Status Dates Dr. Nathanael Cardona MD Primary Care Provider Active Team Status: Active Member Role/Relationship Status Dates Dr. Nathanael Cardona MD Primary Care Provider Active Start: May 30, 2024 Dr. Luca Nayak MD Attending Provider Active Start: May 30, 2024 Dr. Luca Nayak MD Referring Provider Active Start: May 30, 2024 Dr. Luca Nayak MD Other Provider Active Star t: May 30, 2024 Team Status: Inactive Member Role/Relationship Status Dates Dr. Nathanael Cardona MD Primary Care Provider Active Start: June 03, 2024 End: June 03, 2024 Dr. Nathanael Cardona MD Referring Provider Active Start: June 03, 2024 End: June 03, 2024 Dr. Edmundo Queevdo MD Attending Provider Active Start: June 03, 2024 End: June 03, 2024 Team Status: Inactive Member Role/Relationship Status Dates Dr. Nathanael Cardona MD Primary Care Provider Active Start: June 03, 2024 End: June 03, 2024 Dr. Alex Mancera MD Attending Provider Active S tart: June 03, 2024 End: June 03, 2024 Team Status: Inactive Member Role/Relationship Status Dates Dr. Nathanael Cardona MD Primary Care Provider Active Start: June 09, 2024 End: June 12, 2024 Dr. Hebert Saavedra MD Emergency Provider Active Sta rt: June 09, 2024 End: June 12, 2024 Dr. Juliana Shaw MD Admit Provider Active Star t: June 09, 2024 End: June 12, 2024 Dr. Juliana Shaw MD Attending Provider Active Start: June 09, 2024 End: June 12, 2024 Team Status: Active Member Role/Relationship Status Dates Dr. Nathanael Cardona MD Primary Care Provider Active Start: June 10, 2024 Dr. Hebert Saavedra MD Emergency Provider Active Sta rt: June 10, 2024 Dr. Juliana Shaw MD Admit Provider Active Star t: June 10, 2024 Dr. Juliana Shaw MD Attending Provider Active Start: June 10, 2024 Dr. Juliana Shaw MD Other Provider Active Star t: June 10, 2024 Team Status: Active Member Role/Relationship Status Dates Dr. Nathanael Cardona MD Primary Care Provider Active Start: June 11, 2024 Dr. Hebert Saavedra MD Emergency Provider Active Sta rt: June 11, 2024 Dr. Juliana Shaw MD Admit Provider Active Star t: June 11, 2024 Dr. Juliana Shaw MD Attending Provider Active Start: June 11, 2024 Dr. Juliana Shaw MD Other Provider Active Star t: June 11, 2024 Team Status: Active Member Role/Relationship Status Dates Dr. Nathanael Cardona MD Primary Care Provider Active Start: June 12, 2024 Dr. Hebert Saavedra MD Emergency Provider Active Sta rt: June 12, 2024 Dr. Juliana Shaw MD Admit Provider Active Star t: June 12, 2024 Dr. Juliana Shaw MD Attending Provider Active Start: June 12, 2024 Dr. Juliana Shaw MD Other Provider Active Star t: June 12, 2024 Team Status: Active Member Role/Relationship Status Dates Dr. Nathanael Cardona MD Primary Care Provider Active Start: June 22, 2024 Dr. Alex Mancera MD Attending Provider Active S tart: June 22, 2024 Dr. Juliana Shaw MD Referring Provider Active Start: June 22, 2024 Team Status: Active Member Role/Relationship Status Dates Dr. Nathanael Cardona MD Primary Care Provider Active Start: June 22, 2024 Dr. Juliana Shaw MD Attending Provider Active Start: June 22, 2024 Dr. Juliana Shaw MD Referring Provider Active Start: June 22, 2024 Team Status: Inactive Member Role/Relationship Status Dates CARLOS Jauregui Referring Provider Active Star t: June 27, 2024 End: June 27, 2024 Dr. Nathanael Cardona MD Primary Care Provider Active Start: June 27, 2024 End: June 27, 2024 Dr. Luca Nayak MD Attending Provider Active Start: June 27, 2024 End: June 27, 2024 Team Status: Active Member Role/Relationship Status Dates CARLOS Jauregui Referring Provider Active Star t: June 27, 2024 Dr. Nathanael Cardona MD Primary Care Provider Active Start: June 27, 2024 Dr. Luca Nayak MD Attending Provider Active Start: June 27, 2024 Dr. Luca Nayak MD Other Provider Active Star t: June 27, 2024 Team Status: Inactive Member Role/Relationship Status Dates Dr. Nathanael Cardona MD Primary Care Provider Active Start: July 11, 2024 End: July 11, 2024 Dr. Nathanael Cardona MD Attending Provider Active Start: July 11, 2024 End: July 11, 2024 Dr. Nathanael Cardona MD Referring Provider Active Start: July 11, 2024 End: July 11, 2024 Team Status: Inactive Member Role/Relationship Status Dates CARLOS Jauregui Referring Provider Active Star t: July 25, 2024 End: July 27, 2024 Dr. Nathanael Cardona MD Primary Care Provider Active Start: July 25, 2024 End: July 27, 2024 Dr. Luca Nayak MD Attending Provider Active Start: July 25, 2024 End: July 27, 2024 Team Status: Active Member Role/Relationship Status Dates Dr. Nathanael Cardona MD Primary Care Provider Active Start: July 25, 2024 Dr. Luca Nayak MD Attending Provider Active Start: July 25, 2024 Dr. Luca Nayak MD Referring Provider Active Start: July 25, 2024 Dr. Luca Nayak MD Other Provider Active Star t: July 25, 2024 Team Status: Inactive Member Role/Relationship Status Dates Dr. Nathanael Cardona MD Primary Care Provider Active Start: July 29, 2024 End: August 01, 2024 Dr. Andre Ferreira DO Emergency Provider Active Start: July 29, 2024 End: August 01, 2024 Dr. Isha Zurita MD Admit Provider Active St art: July 29, 2024 End: August 01, 2024 Dr. Isha Zurita MD Referring Provider Active Start: July 29, 2024 End: August 01, 2024 Dr. Isha Zurita MD Other Provider Active St art: July 29, 2024 End: August 01, 2024 Dr. Basilio Dill DO Attending Provider Active Start: July 29, 2024 End: August 01, 2024 Dr. Miller Blank MD Other Provider Active Star t: July 29, 2024 End: August 01, 2024 Dr. Felix Larios MD Other Provider Active Start: July 29, 2024 End: August 01, 2024 Team Status: Active Member Role/Relationship Status Dates Dr. Nathanael Cardona MD Primary Care Provider Active Start: July 30, 2024 Dr. Andre Ferreira DO Emergency Provider Active Start: July 30, 2024 Dr. Isha Zurita MD Admit Provider Active St art: July 30, 2024 Dr. Isha Zurita MD Other Provider Active St art: July 30, 2024 Dr. Miller Blank MD Attending Provider Active Start: July 30, 2024 Dr. Miller Blank MD Other Provider Active Star t: July 30, 2024 Team Status: Active Member Role/Relationship Status Dates Dr. Nathanael Cardona MD Primary Care Provider Active Start: July 31, 2024 Dr. Andre Ferreira DO Emergency Provider Active Start: July 31, 2024 Dr. Isha Zurita MD Admit Provider Active St art: July 31, 2024 Dr. Isha Zurita MD Other Provider Active St art: July 31, 2024 Dr. Miller Blank MD Attending Provider Active Start: July 31, 2024 Dr. Miller Blank MD Other Provider Active Star t: July 31, 2024 Team Status: Active Member Role/Relationship Status Dates Dr. Nathanael Cardona MD Primary Care Provider Active Start: August 01, 2024 Dr. Andre Ferreira DO Emergency Provider Active Start: August 01, 2024 Dr. Isha Zurita MD Admit Provider Active St art: August 01, 2024 Dr. Isha Zurita MD Attending Provider Active Start: August 01, 2024 Dr. Isha Zurita MD Other Provider Active St art: August 01, 2024 Dr. Miller Blank MD Other Provider Active Star t: August 01, 2024 Team Status: Inactive Member Role/Relationship Status Dates Dr. Nathanael Cardona MD Primary Care Provider Active Start: August 02, 2024 End: August 02, 2024 Dr. Hebert Saavedra MD Attending Provider Active Sta rt: August 02, 2024 End: August 02, 2024 Dr. Hebert Saavedra MD Emergency Provider Active Sta rt: August 02, 2024 End: August 02, 2024 Team Status: Inactive Member Role/Relationship Status Dates Dr. Nathanael Cardona MD Primary Care Provider Active Start: August 07, 2024 End: August 07, 2024 Dr. Kit Harris MD Attending Provider Active Start: August 07, 2024 End: August 07, 2024 Dr. Kit Harris MD Emergency Provider Active Start: August 07, 2024 End: August 07, 2024 Team Status: Inactive Member Role/Relationship Status Dates CARLOS Jauregui Referring Provider Active Star t: August 29, 2024 End: September 26, 2024 Dr. Nathanael Cardona MD Primary Care Provider Active Start: August 29, 2024 End: September 26, 2024 Dr. Luca Nayak MD Attending Provider Active Start: August 29, 2024 End: September 26, 2024 Team Status: Active Member Role/Relationship Status Dates CARLOS Jauregui Referring Provider Active Star t: August 29, 2024 Dr. Nathanael Cardona MD Primary Care Provider Active Start: August 29, 2024 Dr. Luca Nayak MD Attending Provider Active Start: August 29, 2024 Dr. Luca Nayak MD Other Provider Active Star t: August 29, 2024 Team Status: Inactive Member Role/Relationship Status Dates Dr. Nathanael Cardona MD Primary Care Provider Active Start: September 16, 2024 End: September 16, 2024 Dr. Nathanael Cardona MD Referring Provider Active Start: September 16, 2024 End: September 16, 2024 Dr. Edmundo Quevedo MD Attending Provider Active Start: September 16, 2024 End: September 16, 2024 Reason for Visit (unrecogniz ed section and content) Reason Onset Date Comments returning call 03/06/2023 Reason Onset Date Comments Other 06/14/2023 Specialty Diagnoses / Procedures Referred By Contac t Referred To Contact Diagnoses Urinary incontinence Urinary incontinence Procedures AL CYSTOURETHROSCOPY AL CYSTOSTOMY CYSTOTOMY W/DRAINAGE CYSTOSCOPY possible trocar suprapubic cystostomy Rikki Casas MD [address] [facility] [address] [place] [address] [place] [address] Referral ID Status Reason Start Date Expiration Date Visits Re quested Visits Authorized [id number] 1 1 Reason Onset Date Comments Urinary Catheter Problem 12/18/2023 Reason Comments Urinary Retention SPT placement 4, Pt states they went to ED twice since then having SPT changed Reason Onset Date Comments Other 01/25/2024 Reason Onset Date Comments Orders 03/31/2024 Reason Onset Date Comments Results 07/29/2024 FOR RECORDS PERTAINING TO PATIENTS WHO ARE [...] BE BASED ON THE PRIMARY CLINICAL RECORDS. [facility] [employer] [facility]. provides no warranty or guarantee of the accuracy or completeness of information in this document.
== END | disposition home or self-care (01) ==
LOC: LABSPEC 13:50
PROVIDERS: PCP Family Medicine; Referring Provider Urology; Visit Provider Urology
DX: L89.314 Pressure ulcer of right buttock, stage 4 (principal); R41.82 Altered mental status, unspecified
CPT/HCPCS: 81002; 87077; 87086; 87088; 87186

== ENCOUNTER 2024-10-03 15:20 | Outpatient (RCR) | payer MEDICARE, SELFPAY ==
[2024-10-03 16:03] VITALS: BP 127/84; PULSE 86; RESP 18; TEMP 36.3
--- NOTE | 2024-10-04 13:48 | PN.PCM_ITS ---
History of Present Illness Date of Service: 10/03/24 Chief Complaint: Right ischial pressure sore, Stage IV. History of Wound: This is a 68-year-old white male who presented to the wound healing center with complaints of pressure ulcer to right buttock area with extension to the right ischial bone. This started in October,. Patient's was treating with OTC creams and keeping area clean. The ulcer starting increasing in size and went to the Emergency Department on 02/08/22. CT showed subcutaneous and deep soft tissue involvement and possible early abscess formation. The bone was not addressed. The patient has very limited mobility as a result of a prior spine injury/surgery. He utilizes a wheelchair at all times. He has not been using his billy lift at home to transfer but has been using a board to slide himself from his bed to chair at home. He sits in his wheelchair almost all day, not really able to change positions. They finally obtained a low air loss overlay to their regular mattress at home. A roho cushion was ordered for his wheelchair. Patient is a former smoker, he quit early 2023. Surgery 04/28/22 - Excision right ischial pressure sore, Stage IV, with partial ostectomy for osteomyelitis. Size of wound 8 x 7 x 4.5 cm. Operative tissue cultures positive for MSSA and Cutibacterium acnes. Bone cultures positive for MSSA and Corynebacterium striatum. He is being treated with Augmentin. Pathology from surgery 04/28/22 showed chronic reparative and reactive change. No evidence of acute osteomyelitis. He had a diverting colostomy placed on 11/21/[address] Romero. Surgery 08/26/23 - Excision recurrent right ischial pressure sore, Stage IV, with partial ostectomy for osteomyelitis. Discharged home on 08/27/23. Pathology right ischial pressure sore soft tissue showed focal ulceration, acute and chronic inflammation an granulation tissue reaction. Right ischial bone, partial ostectomy showed fragments of bone with chronic inflammation and reactive changes, negative for acute osteomyelitis. Operative soft tissue cultures from 08/26/23 positive for Serratia marcescens, Staphylococcus capitis, and Corynebacterium striatum. Operative bone cultures from 08/26/23 positive for Serratia marcescens and Corynebacterium striatum. He was started on Levaquin and Doxycycline until he can be seen by ID on 11/04/23. Subjective Subjective Current encounter, 03 October 2024: The patient is a 69-year-old male presenting with wound healing issues. The wound has been problematic, with the patient experiencing pain and difficulty with previous wound vac therapy due to its tendency to dislodge. Currently, the wound is being managed with saline dressings, which appear to be promoting healing as granulation tissue is present. The patient also reports experiencing hallucinations, such as seeing animals that are not present. These hallucinations may be related to the antibiotics being taken for infection control. Attestation: Documentation on this patient encounter was supported using ambient scribe technology/ voice AI technology. The patient consented to recording for the purpose of documenting the encounter. Provider reviewed content of the generated note prior to signature. Objective Data Objective Data Vital Signs: Vital Signs Temp Pulse Resp BP 97.3 F L 86 18 127/84 H 10/03/24 16:03 10/03/24 16:03 10/03/24 16:03 10/03/24 16:03 Weight: 222 lb 3.615 oz Charges/Coding Visit Charges Office Visits / Consults: [id number] OV L3 Est 20min Physical Exam Narrative Persistent right ischial wound Wound examination reveals no fluid collections and presence of granulation tissue. Surrounding skin appears healthy Measured 4 x 3 cm and 3 cm deep (down to muscle). No exposed bone at the base, all granulated. Const alert and oriented x3 General Appearance: cooperative Resp normal respiratory effort GI GI Narrative: Diverting ostomy is present and is productive Debridement Note Debridement Note Post-Debridement Measurements and Additional Note: Post-Debridement Measurements/Treatment - Nurse 1 - General Ulcer Assessment Start: 10/03/24 16:03 Freq: Status: Active Protocol: DILCIA.NORIS Activity Type Activity Date Activity User E-sign Co-sign Detail Recorded Client Recorded Date Recorded By Document 10/03/24 16:03 DL [id number] 10/03/24 16:08 DL 10/03/24 16:03 - Today's Visit Information Type of service Follow-up Visit (Physician/MANAGER TE[employer] SERVICES ) Arrival Mode Wheelchair Transfer Assistance Billy Lift Patient Identification Verified (Name & Yes ) Patient Requires Transmission-Based No Precautions Vital Signs Temperature (97.8 F-99.1 F) 97.3 F L Temperature Source Temporal Pulse Rate (60-100) 86 Pulse Location Monitor Respiratory Rate (12-18) 18 Respiratory rate source Observation Blood Pressure (90/60-120/80) 127/84 H Blood Pressure Mean (mm Hg) 98 Source Monitor History Since Last Visit- (Skip if this is Patient's initial visit) Have you changed medications since your No last visit? Any new allergies or adverse reactions No Had a fall/change in ADL's that may No increase risk of falls Signs or symptoms of abuse and/or No neglect since last visit Have you been in the hospital since your No last visit? Has dressing in place as prescribed No Has compression in place as prescribed N/A Has offloadiing in place as prescribed Yes Experienced any changes in pain level or No management Pain Scale: 0-10 Numeric Is Patient Pain Free? Yes WC - Nurse 1 - General Ulcer Measurement Start: 10/03/24 16:03 Freq: Status: Active Protocol: Activity Type Activity Date Activity User E-sign Co-sign Detail Recorded Client Recorded Date Recorded By Document 10/03/24 16:03 DL [id number] 10/03/24 16:08 DL 10/03/24 16:03 Wound Center Nurse 1 #5- R ischium Post op -Current Size (cm) - Length 0.1 -Current Size (cm) - Width 0.1 -Current Size (cm) - Depth 0.1 -Total Square Cm 0.01 -Exudate Amt Medium -Exudate Type Serosanguineous -Wound Margin Distinct, Outline Attached -Granulation Amt Large (67-100%) -Granulation Quality Red -Necrosis Amt Small (1-33%) -Necrotic Tissue Type Adherent Slough -Structure Exposed N/A -Texture (Michelle-wound Skin Appearance) Scarring -Moisture (Michelle-wound Skin Appearance) No Abnormality -Color (Michelle-wound Skin Appearance) No Abnormality -Temperature (Michelle-wound Skin No Abnormality Appearance) (Pt Warm) -Tenderness on Palpation (Michelle-wound No Skin Appearance) -Ulcer Cleansing Soap and Water -Foul Odor after Cleansing No -Anesthetic Used 4% Lidocaine Solution WC - Nurse 2 - General Ulcer CM Notes Start: 10/03/24 16:03 Freq: Status: Active Protocol: Activity Type Activity Date Activity User E-sign Co-sign Detail Recorded Client Recorded Date Recorded By Document 10/03/24 16:10 DS [id number] 10/03/24 16:12 DS 10/03/24 16:10 Wound Center Nurse 2 -Time 16:10 -Correct Patient Yes -Correct Side, Site, Position Yes -Procedure Performed No -Post Debridement (cm) - Length 2.5 -Post Debridement (cm) - Width 2.5 -Post Debridement (cm) - Depth 4.0 -Total Square (Post) (cm) 6.25 -Area of Debridement (cm) - Length 2.5 -Area of Debridement (cm) - Width 2.5 -Total Square (Area) (cm) 6.25 -Wound/Ulcer Outcome Not Healed Pain Scale: 0-10 Numeric Is Patient Pain Free? Yes WC - Nurse 3 - General Ulcer D/C NN Start: 10/03/24 16:03 Freq: Status: Active Protocol: Activity Type Activity Date Activity User E-sign Co-sign Detail Recorded Client Recorded Date Recorded By Document 10/03/24 16:29 [id number] 10/03/24 16:29 10/03/24 16:29 Wound Care Center Nurse 3 #5- R ischium Post op -Other Dressing NS WET TO DRY -Primary Dressing Covered/Secured with Dry Gauze, Secured with Tape Pain Scale: 0-10 Numeric Is Patient Pain Free? Yes WC - Visit Discharge Discharge Condition Stable Ambulatory Status Wheelchair Transportation Private Auto Medication Reconcilliation completed & No provided to patient/care provider Clinical Summary of Care Provided Yes Assessment/Plan Assessment/Plan (1) Decubitus ulcer of right buttock, stage 3: CODE(S): L89.313 - Pressure ulcer of right buttock, stage 3 PLAN: Assessment and Plan The 69-year-old male with a history of wound healing issues presents with ongoing management challenges. The wound is currently being treated with saline dressings, which have shown improvement with granulation tissue formation, indicating healing from the inside out. 1. Wound Healing Issues The plan is to continue with saline dressings twice daily to promote healing, as they have been effective in forming granulation tissue. A follow-up wound check is scheduled in six weeks to assess progress and determine if additional supplies are needed. Per discussion with patient and his , patient is not a flap candidate. We will continue wound care. F/u in 6 weeks PLAN: Plan - Continue saline dressings twice daily to aid wound healing. - Monitor for any changes in hallucinations and report them to the healthcare provider. - Attend the follow-up wound check in six weeks.
== END 2024-10-27 23:59 | disposition home or self-care (01) ==
LOC: WC 15:20
PROVIDERS: PCP Family Medicine; Referring Provider Physician Assistant; Visit Provider Surgery Plastic and Reconstructive Surgery
DX: L89.313 Pressure ulcer of right buttock, stage 3 (principal); L89.214 Pressure ulcer of right hip, stage 4; Z87.891 Personal history of nicotine dependence; Z99.3 Dependence on wheelchair; R44.1 Visual hallucinations
CPT/HCPCS: 97803; 99213; G0463

== ENCOUNTER → 2024-10-14 | Outpatient (CLI) | payer MEDICARE, SELFPAY ==
--- NOTE | 2024-10-14 07:01 | MRI_ITS ---
PROCEDURE: SPINE THORACIC (ROUTINE) 10/14/2024 REASON FOR EXAM: THORACIC MYELOPATHY TECHNIQUE: SPINE THORACIC (ROUTINE) Multiplanar and multisequence images were obtained. FINDINGS: There are chronic upper thoracic compression deformities. These are present at T4, T5 and T6 without marrow abnormality. No acute compressive deformity is seen. There has been dorsal decompression extending from T4-T6 previously. 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 The conus is unremarkable. There is no marrow edema or paravertebral mass lesion. There is no current evidence of cord compression. MRI/Spine Thoracic (Routine) IMPRESSION: Prior compression deformities and dorsal decompression. 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
--- OUTSIDE RECORDS SUMMARY | 2024-10-14 07:04 | XMS RPT_ITS ---
(Bld) 4.2 % Normal 0-5 [facility] Comment on above: Performed By: #### L 500.4050, L100.0100 ####[facility] [address] [place], [address] Erythrocyte distribution width (RBC) [Ratio] 16.8 % High 11.6-14.6 [facility] Comment on above: Performed By: #### L 500.4050, L100.0100 ####[facility] [address] [place], [address] Hematocrit (Bld) [Volume fraction] 35.4 % Low 40-54 [facility] Comment on above: Performed By: #### L 500.4050, L100.0100 ####[facility] [address] [place], [address] Hemoglobin (Bld) [Mass/Vol] 11.4 g/dL Low 13.0-16.5 [facility] Comment on above: Performed By: #### L 500.4050, L100.0100 ####[facility] [address] [place], [address] IG% 1.700 High 0.0-0.9 [facility] Comment on above: Result Comment: IG% - Immature Granulocytes (promyelocytes, myelocytes andmetamyelocytes) > 1% indicates that a LEFT SHIFT is Present. Performed By: #### L 500.4050, L100.0100 ####[facility] [address] [place], [address] Lymphocytes/100 WBC (Bld) 17.9 % Low 19-41 [facility] Comment on above: Performed By: #### L 500.4050, L100.0100 ####[facility] [address] [place], [address] MCH (RBC) [Entitic mass] 28.9 pg Normal 27.0-32.0 [facility] Comment on above: Performed By: #### L 500.4050, L100.0100 ####[facility] [address] [place], [address] MCHC (RBC) [Mass/Vol] 32.2 g/dL Normal 32-36 [facility] Comment on above: Performed By: #### L 500.4050, L100.0100 ####[facility] [address] [place], [address] MCV (RBC) [Entitic vol] 89.6 fL Normal 80-94 [facility] Comment on above: Performed By: #### L 500.4050, L100.0100 ####[facility] [address] [place], [address] Monocytes/100 WBC (Bld) 9.5 % Normal 0-10 [facility] Comment on above: Performed By: #### L 500.4050, L100.0100 ####[facility] [address] [place], [address] Neutrophils/100 WBC (Bld) 65.8 % Normal 47-70 [facility] Comment on above: Performed By: #### L 500.4050, L100.0100 ####[facility] [address] [place], [address] Nucleated RBC (Bld) [#/Vol] 0 10*3/uL Normal 0-5 [facility] Comment on above: Performed By: #### L 500.4050, L100.0100 ####[facility] [address] [place], [address] Platelet mean volume (Bld) [Entitic vol] 10.1 fL Normal 6.2-12.0 [facility] Comment on above: Performed By: #### L 500.4050, L100.0100 ####[facility] [address] [place], [address] Platelets (Bld) [#/Vol] 331 10*3/uL Normal 150-450 [facility] Comment on above: Performed By: #### L 500.4050, L100.0100 ####[facility] [address] [place], [address] RBC (Bld) [#/Vol] 3.95 10*6/uL Low 4.6-6.2 [facility] Comment on above: Performed By: #### L 500.4050, L100.0100 ####[facility] [address] [place], [address] RDW SD 55.9 fl High 35.1-43.9 [facility] Comment on above: Performed By: #### L 500.4050, L100.0100 ####[facility] [address] [place], [address] WBC (Bld) [#/Vol] 9.6 10*3/uL Normal 4.4-11.0 [facility] Comment on above: Performed By: #### L 500.4050, L100.0100 ####[facility] [address] [place], [address] Carbon dioxide, total [Moles /volume] in Central venous bloodOrdered By: Kit Harris on 08-07-2024 CO2 [Moles/Vol] 26.0 mmol/L 21.0-32.0 [facility] Chest 1 View (Portable)on Chest 1 View (Portable) Normal [facility] Chloride assayOrdered By: Janie Harris on 08-07-2024 Chloride [Moles/Vol] 106 mmol/L 98-108 [facility] Comprehensive Metabolic Prof ilon 08-07-2024 Albumin [Mass/Vol] 3.1 g/dL Low 3.4-4.8 [facility] Comment on above: Performed By: #### L 500.4050, L100.0100 ####[facility] [address] [place], [address] Albumin/Globulin [Mass ratio] 0.8 {ratio} Low 0.9-2.4 [facility] Comment on above: Performed By: #### L 500.4050, L100.0100 ####[facility] [address] [place], [address] ALK PHOS 109 U/L Normal 40-129 [facility] Comment on above: Performed By: #### L 500.4050, L100.0100 ####[facility] [address] [place], [address] ALT [Catalytic activity/Vol] 21 U/L Normal <=46 [facility] Comment on above: Performed By: #### L 500.4050, L100.0100 ####[facility] [address] [place], [address] AST [Catalytic activity/Vol] 12 U/L Normal <=37 [facility] Comment on above: Performed By: #### L 500.4050, L100.0100 ####[facility] [address] [place], [address] BUN/CRE 14.8 RATIO Normal 10-20 [facility] Comment on above: Performed By: #### L 500.4050, L100.0100 ####[facility] [address] [place], [address] Calcium [Mass/Vol] 9.2 mg/dL Normal 7.6-11.0 [facility] Comment on above: Performed By: #### L 500.4050, L100.0100 ####[facility] [address] [place], [address] Chloride [Moles/Vol] 106 mmol/L Normal 98-108 [facility] Comment on above: Performed By: #### L 500.4050, L100.0100 ####[facility] [address] [place], [address] CO2 [Moles/Vol] 26.0 mmol/L Normal 21.0-32.0 [facility] Comment on above: Performed By: #### L 500.4050, L100.0100 ####[facility] [address] [place], [address] Creatinine [Mass/Vol] 1.33 mg/dL High 0.70-1.20 [facility] Comment on above: Performed By: #### L 500.4050, L100.0100 ####[facility] [address] [place], [address] ECRCL 59.92 ml/min Normal 50-250 [facility] Comment on above: Performed By: #### L 500.4050, L100.0100 ####[facility] [address] [place], [address] GAP 10 Normal 5-15 [facility] Comment on above: Performed By: #### L 500.4050, L100.0100 ####[facility] [address] [place], [address] GFR/1.73 sq M.predicted among non-blacks MDRD (S/P/Bld) [Vol rate/Area] 59 mL/min/{1.73_m2} Low >60 [facility] Comment on above: Result Comment: mL/m in/1.73m2 CKD-EPI Creatinine Equation (2020) Performed By: #### L 500.4050, L100.0100 ####[facility] [address] [place], [address] Globulin (S) [Mass/Vol] 3.7 g/dL Normal 2.2-4.2 [facility] Comment on above: Performed By: #### L 500.4050, L100.0100 ####[facility] [address] [place], [address] Glucose [Mass/Vol] 139 mg/dL High 70-99 [facility] Comment on above: Performed By: #### L 500.4050, L100.0100 ####[facility] [address] [place], [address] Potassium [Moles/Vol] 3.6 mmol/L Normal 3.3-5.1 [facility] Comment on above: Performed By: #### L 500.4050, L100.0100 ####[facility] [address] [place], [address] Sodium [Moles/Vol] 142 mmol/L Normal 133-145 [facility] Comment on above: Performed By: #### L 500.4050, L100.0100 ####[facility] [address] [place], [address] T BILI < 0.15 Normal 0.00-1.30 [facility] Comment on above: Performed By: #### L 500.4050, L100.0100 ####[facility] [address] [place], [address] T PROT 6.8 g/dL Normal 5.9-8.4 [facility] Comment on above: Performed By: #### L 500.4050, L100.0100 ####[facility] [address] [place], [address] Urea nitrogen [Mass/Vol] 20 mg/dL High 4-19 [facility] Comment on above: Performed By: #### L 500.4050, L100.0100 ####[facility] [address] [place], [address] Emergency Department Summary on 08-07-2024 Emergency Department Summary Normal [facility] Eosinophil percentageOrdered By: Kit Harris on 08-07-2024 Eosinophils/100 WBC (Bld) 4.2 % 0-5 [facility] Erythrocyte distribution wid th ratioOrdered By: Kit Harris on 08-07-2024 Erythrocyte distribution width (RBC) [Ratio] 16.8 % High 11.6-14.6 [facility] Erythrocyte distribution wid th standard deviationOrdered By: Kit Harris on 08-07-2024 Erythrocyte distribution width (RBC) [Ratio] 55.9 fl High 35.1-43.9 [facility] Glomerular filtration rate ( GFR) estimation/1.73 sq m using serum, plasma, or whole bOrdered By: Kitalee Harris on 08-07-2024 GFR/1.73 sq M.predicted among non-blacks MDRD (S/P/Bld) [Vol rate/Area] 59 mL/min/{1.73_m2} Low >60 [facility] Comment on above: mL/min/1.73m2 CKD-EP I Creatinine Equation (2020) Hematocrit Auto (Bld) [Volum e fraction]Ordered By: Kit Harris on 08-07-2024 Hematocrit (Bld) [Volume fraction] 35.4 % Low 40-54 [facility] Hemoglobin measurementOrdere d By: Kit Harris on 08-07-2024 Hemoglobin (Bld) [Mass/Vol] 11.4 g/dL Low 13.0-16.5 [facility] Immature granulocytes/100 WB C Auto (Bld)Ordered By: Kit Harris on 08-07-2024 Immature granulocytes/100 WBC (Bld) 1.700 % High 0.0-0.9 [facility] Comment on above: IG% - Immature Granu locytes (promyelocytes, myelocytes and metamyelocytes) > 1% indicates that a LEFT SHIFT is Present. Ketones Test strip Ql (U)Ord ered By: Kit Harris on 08-07-2024 Ketones Ql (U) Negative Negative [facility] L499.0042on 08-07-2024 Trop T High Sen 21 ng/L Normal <=22 [facility] Comment on above: Performed By: #### L 499.0042 ####[facility] [address] [place], [address] L499.0043on 08-07-2024 Trop T High Sen Normal <=22 [facility] Comment on above: Result Comment: Canc elled via OM: Order cancelled - Patient discharged Performed By: #### L 499.0043 ####[facility] [address] [place], [address] L501.4021on 08-07-2024 Trop T High Sen 22 ng/L Normal <=22 [facility] Comment on above: Performed By: #### L 501.4021 ####[facility] [address] [place], [place], [address] Laboratory - Chemistry and C hemistry - challengeOrdered By: Kit Harris on 08-07-2024 AST [Catalytic activity/Vol] 12 U/L <38 [facility] MCV (mean corpuscular volume ) determinationOrdered By: Kit Harris on 08-07-2024 MCV (RBC) [Entitic vol] 89.6 fL 80-94 [facility] Mean corpuscular hemoglobin (MCH) determinationOrdered By: Kit Harris on 08-07-2024 MCH (RBC) [Entitic mass] 28.9 pg 27.0-32.0 [facility] Mean corpuscular hemoglobin concentration (MCHC) determinationOrdered By: Kit Harris on 08-07-2024 MCHC (RBC) [Mass/Vol] 32.2 g/dL 32-36 [facility] Mean platelet volume determi nationOrdered By: Kit Harris on 08-07-2024 Platelet mean volume (Bld) [Entitic vol] 10.1 fL 6.2-12.0 [facility] Microscopic analysis of urin e for red blood cells (RBC)Ordered By: Kit Harris on 08-07-2024 Microscopic analysis of urine for red blood cells (RBC) 0 SEEN /hpf 0-5 [facility] Monocyte percentageOrdered B y: Kit Harris on 08-07-2024 Monocytes/100 WBC (Bld) 9.5 % 0-10 [facility] Mucus LM Ql (Urine sed)Order ed By: Kit Harris on 08-07-2024 Mucus Ql (Urine sed) 0 SEEN /hpf [facility] Neutrophil percentageOrdered By: Kit Harris on 08-07-2024 Neutrophils/100 WBC (Bld) 65.8 % 47-70 [facility] Nitrite Test strip Ql (U)Ord ered By: Kit Harris on 08-07-2024 Nitrite Ql (U) Negative Negative [facility] No Panel InformationOrdered By: Kit Harris on 08-07-2024 12 U/L <38 [facility] Nucleated red blood cell per centageOrdered By: Kit Harris on 08-07-2024 Nucleated RBC/100 WBC (Bld) [Ratio] 0 % 0-5 [facility] Platelet countOrdered By: Janie Harris on 08-07-2024 Platelets (Bld) [#/Vol] 331 10*3/uL 150-450 [facility] Potassium measurement (mass/ volume)Ordered By: Kit Harris on 08-07-2024 Potassium (Unsp spec) [Mass/Vol] 3.6 mmol/L 3.3-5.1 [facility] Protein Test strip Ql (U)Ord ered By: Kit Harris on 08-07-2024 Protein Ql (U) 15 mg/dl High Negative [facility] RBC Auto (Bld) [#/Vol]Ordere d By: Kit Harris on 08-07-2024 RBC (Bld) [#/Vol] 3.95 10*6/uL Low 4.6-6.2 [facility] Serum creatinine measurement (mass/volume)Ordered By: Kit Harris on 08-07-2024 Creatinine [Mass/Vol] 1.33 mg/dL High 0.70-1.20 [facility] Serum globulin measurementOr dered By: Kit Harris on 08-07-2024 Globulin (S) [Mass/Vol] 3.7 g/dL 2.2-4.2 [facility] Serum glucose measurement (m ass/volume)Ordered By: Kit Harris on 08-07-2024 Glucose [Mass/Vol] 139 mg/dL High 70-99 [facility] Serum or plasma alanine orozco otransferase (ALT) measurementOrdered By: Kit Harris on 08-07-2024 ALT [Catalytic activity/Vol] 21 U/L <47 [facility] Serum or plasma albumin marlyn urement (mass/volume)Ordered By: Kit Harris on 08-07-2024 Albumin [Mass/Vol] 3.1 g/dL Low 3.4-4.8 [facility] Serum or plasma albumin/glob ulin mass ratioOrdered By: Kit Harris on 08-07-2024 Albumin/Globulin [Mass ratio] 0.8 {ratio} Low 0.9-2.4 [facility] Serum or plasma alkaline marisol sphatase measurementOrdered By: Kti Harris on 08-07-2024 ALP [Catalytic activity/Vol] 109 U/L 40-129 [facility] Serum or plasma calcium marlyn urement (mass/volume)Ordered By: Kit Harris on 08-07-2024 Calcium [Mass/Vol] 9.2 mg/dL 7.6-11.0 [facility] Serum or plasma urea nitroge n measurement (mass/volume)Ordered By: Kit Harris on 08-07-2024 Urea nitrogen [Mass/Vol] 20 mg/dL High 4-19 [facility] Sodium levelOrdered By: Micheal Harris on 08-07-2024 Sodium [Moles/Vol] 142 mmol/L 133-145 [facility] Squamous epithelial cells de tection in urine sediment by light microscopyOrdered By: Kit Harris on 08-07-2024 Epithelial cells.squamous LM Ql (Urine sed) 0 SEEN /hpf 0-5 [facility] Total proteinOrdered By: Kenneth Harris on 08-07-2024 Protein [Mass/Vol] 6.8 g/dL 5.9-8.4 [facility] Troponin T.cardiac [Mass/vol ume] in Serum or Plasma by High sensitivity methodOrdered By: Kit Harris on 08-07-2024 Troponin T.cardiac High sensitivity method [Mass/Vol] 21 ng/L <22 [facility] Troponin T.cardiac High sensitivity method [Mass/Vol] 22 ng/L <22 [facility] Urinalysis, Completeon 08-07 WBC 0-5 SEEN Normal 0-5 [facility] Comment on above: Order Comment: LISA TER SPECIMEN Performed By: #### L 400.0001 ####[facility] [address] [place], [address] BACTERIA 0 SEEN Normal None Seen [facility] Comment on above: Order Comment: LISA TER SPECIMEN Performed By: #### L 400.0001 ####[facility] [address] [place], [address] EPI,SQUAMOUS 0 SEEN Normal 0-5 [facility] Comment on above: Order Comment: LISA TER SPECIMEN Performed By: #### L 400.0001 ####[facility] [address] [place], [address] Mucus Ql (Urine sed) 0 SEEN Normal [facility] Comment on above: Order Comment: LISA TER SPECIMEN Performed By: #### L 400.0001 ####[facility] [address] [place], [address] RBC 0 SEEN Normal 0-5 [facility] Comment on above: Order Comment: LISA TER SPECIMEN Performed By: #### L 400.0001 ####[facility] [address] [place], [address] Urine clarityOrdered By: Kenneth Harris on 08-07-2024 Clarity (U) Clear Clear [facility] Urine color determinationOrd ered By: Kit Harris on 08-07-2024 Color (U) Yellow Yellow [facility] Urine glucose detectionOrder ed By: Kit Harris on 08-07-2024 Glucose Ql (U) Normal mg/dl Normal [facility] Urine leukocyte esterase det ection by dipstickOrdered By: Kit Harris on 08-07-2024 Leukocyte esterase Test strip Ql (U) 25 /ul High Negative [facility] Urine pHOrdered By: Kit Harris on 08-07-2024 pH (U) 6.5 [pH] 5.0 - 8.0 [facility] Urine sediment bacteria coun t by microscopy (number/high power field)Ordered By: Kit Harris on 08-07-2024 Bacteria LM.HPF (Urine sed) [#/Area] 0 /[HPF] None Seen [facility] Urine specific gravity measu rementOrdered By: Kit Harris on 08-07-2024 Specific gravity (U) [Rel density] 1.010 1.002-1.030 [facility] Urine urobilinogen measureme ntOrdered By: Kit Harris on 08-07-2024 Urobilinogen Ql (U) Normal mg/dl Normal [facility] White blood cell (WBC) count Ordered By: Kitalee Harris on 08-07-2024 WBC (Bld) [#/Vol] 9.6 10*3/uL 4.4-11.0 [facility] White blood cell countOrdere d By: Kit Harris on 08-07-2024 White blood cell count 0-5 SEEN /hpf 0-5 [facility] Culture, Blood (WB)on 2024 CUB Blood cultures x2, from two different sites No growth in 5 days. Normal [facility] Comment on above: Performed By: #### M 200.1000 ####[facility] [address] [place], [address] Performed By: #### M 200.1000, L100.0100, L300.4310, L300.3900, L503.6005, L500.4050 ####[facility] [address] [place], [place], [id number] Absolute lymphocyte countOrd ered By: Hebert Saavedra on 08-02-2024 Lymphocytes Auto (Unsp spec) [#/Vol] 1.13 10*3/uL 0.83-4.51 [facility] Absolute neutrophil countOrd ered By: Hebertgerman Saavedra on 08-02-2024 Neutrophils (Bld) [#/Vol] 4.7 10*3/uL 2.0-7.7 [facility] Anion gap in Serum or Plasma Ordered By: Hebert Saavedra on 08-02-2024 Anion gap [Moles/Vol] 10 mmol/L 5-15 [facility] Automated lymphocyte count a s percentage of total leukocytesOrdered By: Hebert Saavedra on 08-02-2024 Lymphocytes/100 WBC Auto (Unsp spec) 15.1 % Low 19-41 [facility] BUN/creatinine ratioOrdered By: Hebertgerman Saavedra on 08-02-2024 Urea nitrogen/Creatinine [Mass ratio] 21.3 mg/mg High 10-20 [facility] Base excess Calc (BldV) [Mol es/Vol]Ordered By: Hebert Saavedra on 08-02-2024 Venous Blood Base Excess 10 mmol/L High -1.0-3.5 [facility] Basic Metabolic Profile (BMP )on 08-02-2024 BUN/CRE 21.3 RATIO High 10- [facility] Comment on above: Performed By: #### L 500.2500, L100.0100 ####[facility] [address] [place], [address] Calcium [Mass/Vol] 8.9 mg/dL Normal 7.6-11.0 [facility] Comment on above: Performed By: #### L 500.2500, L100.0100 ####[facility] [address] [place], [address] Chloride [Moles/Vol] 113 mmol/L High 98-108 [facility] Comment on above: Performed By: #### L 500.2500, L100.0100 ####[facility] [address] [place], [address] CO2 [Moles/Vol] 21.3 mmol/L Normal 21.0-32.0 [facility] Comment on above: Performed By: #### L 500.2500, L100.0100 ####[facility] [address] [place], [address] Creatinine [Mass/Vol] 1.10 mg/dL Normal 0.70-1.20 [facility] Comment on above: Performed By: #### L 500.2500, L100.0100 ####[facility] [address] [place], [address] ECRCL 73.63 ml/min Normal 50-250 [facility] Comment on above: Performed By: #### L 500.2500, L100.0100 ####[facility] [address] [place], [address] GAP 10 Normal 5-15 [facility] Comment on above: Performed By: #### L 500.2500, L100.0100 ####[facility] [address] [place], [address] GFR/1.73 sq M.predicted among non-blacks MDRD (S/P/Bld) [Vol rate/Area] 74 mL/min/{1.73_m2} Normal >60 [facility] Comment on above: Result Comment: mL/m in/1.73m2 CKD-EPI Creatinine Equation (2020) Performed By: #### L 500.2500, L100.0100 ####[facility] [address] [place], [address] Glucose [Mass/Vol] 103 mg/dL High 70-99 [facility] Comment on above: Performed By: #### L 500.2500, L100.0100 ####[facility] [address] [place], [address] Potassium [Moles/Vol] 3.6 mmol/L Normal 3.3-5.1 [facility] Comment on above: Performed By: #### L 500.2500, L100.0100 ####[facility] [address] [place], [address] Sodium [Moles/Vol] 144 mmol/L Normal 133-145 [facility] Comment on above: Performed By: #### L 500.2500, L100.0100 ####[facility] [address] [place], [address] Urea nitrogen [Mass/Vol] 23 mg/dL High 4-19 [facility] Comment on above: Performed By: #### L 500.2500, L100.0100 ####[facility] [address] [place], [address] BUN Normal 4-19 [facility] Comment on above: Result Comment: Canc elled via OM: Order cancelled - Patient discharged Performed By: #### L 100.0100, L500.2500 ####[facility] [address] [place], [address] BUN/CRE Normal 10-20 [facility] Comment on above: Result Comment: Canc elled via OM: Order cancelled - Patient discharged Performed By: #### L 100.0100, L500.2500 ####[facility] [address] [place], [address] Calcium Normal 7.6-11.0 [facility] Comment on above: Result Comment: Canc elled via OM: Order cancelled - Patient discharged Performed By: #### L 100.0100, L500.2500 ####[facility] [address] [place], [address] CL Normal 98-108 [facility] Comment on above: Result Comment: Canc elled via OM: Order cancelled - Patient discharged Performed By: #### L 100.0100, L500.2500 ####[facility] [address] [place], [address] CO2 Normal 21.0-32.0 [facility] Comment on above: Result Comment: Canc elled via OM: Order cancelled - Patient discharged Performed By: #### L 100.0100, L500.2500 ####[facility] [address] [place], [address] CREAT,SERUM Normal 0.70-1.20 [facility] Comment on above: Result Comment: Canc elled via OM: Order cancelled - Patient discharged Performed By: #### L 100.0100, L500.2500 ####[facility] [address] [place], [address] eGFR Normal >60 [facility] Comment on above: Result Comment: Canc elled via OM: Order cancelled - Patient discharged Performed By: #### L 100.0100, L500.2500 ####[facility] [address] [place], [address] GAP Normal 5-15 [facility] Comment on above: Result Comment: Canc elled via OM: Order cancelled - Patient discharged Performed By: #### L 100.0100, L500.2500 ####[facility] [address] [place], [address] GLU Normal 70-99 [facility] Comment on above: Result Comment: Canc elled via OM: Order cancelled - Patient discharged Performed By: #### L 100.0100, L500.2500 ####[facility] [address] [place], [address] Potassium Normal 3.3-5.1 [facility] Comment on above: Result Comment: Canc elled via OM: Order cancelled - Patient discharged Performed By: #### L 100.0100, L500.2500 ####[facility] [address] [place], [address] Basic Metabolic Profile (BMP) Normal 133-145 [facility] Comment on above: Result Comment: Canc elled via OM: Order cancelled - Patient discharged Performed By: #### L 100.0100, L500.2500 ####[facility] [address] [place], [address] Basophil percentageOrdered B y: Hebert Saavedra on 08-02-2024 Basophils/100 WBC (Bld) 0.4 % 0-1 [facility] Bilirubin Test strip Ql (U)O rdered By: Hebert Saavedra on 08-02-2024 Bilirubin Ql (U) Negative Negative [facility] CBC W/Diff, Automatedon 05-0 6-2024 Absolute Lymph 1.13 X10 3/uL Normal 0.83-4.51 [facility] Comment on above: Performed By: #### L 500.2500, L100.0100 ####[facility] [address] [place], [address] Absolute Neut 4.7 X10 3/uL Normal 2.0-7.7 [facility] Comment on above: Performed By: #### L 500.2500, L100.0100 ####[facility] [address] [place], [address] Basophils/100 WBC (Bld) 0.4 % Normal 0-1 [facility] Comment on above: Performed By: #### L 500.2500, L100.0100 ####[facility] [address] [place], [address] Eosinophils/100 WBC (Bld) 6.6 % High 0-5 [facility] Comment on above: Performed By: #### L 500.2500, L100.0100 ####[facility] [address] [place], [address] Erythrocyte distribution width (RBC) [Ratio] 17.7 % High 11.6-14.6 [facility] Comment on above: Performed By: #### L 500.2500, L100.0100 ####[facility] [address] [place], [address] Hematocrit (Bld) [Volume fraction] 33.7 % Low 40-54 [facility] Comment on above: Performed By: #### L 500.2500, L100.0100 ####[facility] [address] [place], [address] Hemoglobin (Bld) [Mass/Vol] 10.8 g/dL Low 13.0-16.5 [facility] Comment on above: Performed By: #### L 500.2500, L100.0100 ####[facility] [address] [place], [address] IG% 0.500 Normal 0.0-0.9 [facility] Comment on above: Result Comment: IG% - Immature Granulocytes (promyelocytes, myelocytes andmetamyelocytes) > 1% indicates that a LEFT SHIFT is Present. Performed By: #### L 500.2500, L100.0100 ####[facility] [address] [place], [address] Lymphocytes/100 WBC (Bld) 15.1 % Low 19-41 [facility] Comment on above: Performed By: #### L 500.2500, L100.0100 ####[facility] [address] [place], [address] MCH (RBC) [Entitic mass] 28.6 pg Normal 27.0-32.0 [facility] Comment on above: Performed By: #### L 500.2500, L100.0100 ####[facility] [address] [place], [address] MCHC (RBC) [Mass/Vol] 32.0 g/dL Normal 32-36 [facility] Comment on above: Performed By: #### L 500.2500, L100.0100 ####[facility] [address] [place], [address] MCV (RBC) [Entitic vol] 89.4 fL Normal 80-94 [facility] Comment on above: Performed By: #### L 500.2500, L100.0100 ####[facility] [address] [place], [address] Monocytes/100 WBC (Bld) 15.1 % High 0-10 [facility] Comment on above: Performed By: #### L 500.2500, L100.0100 ####[facility] [address] [place], [address] Neutrophils/100 WBC (Bld) 62.3 % Normal 47-70 [facility] Comment on above: Performed By: #### L 500.2500, L100.0100 ####[facility] [address] [place], [address] Nucleated RBC (Bld) [#/Vol] 0 10*3/uL Normal 0-5 [facility] Comment on above: Performed By: #### L 500.2500, L100.0100 ####[facility] [address] [place], [address] Platelet mean volume (Bld) [Entitic vol] 9.8 fL Normal 6.2-12.0 [facility] Comment on above: Performed By: #### L 500.2500, L100.0100 ####[facility] [address] [place], [address] Platelets (Bld) [#/Vol] 237 10*3/uL Normal 150-450 [facility] Comment on above: Performed By: #### L 500.2500, L100.0100 ####[facility] [address] [place], [address] RBC (Bld) [#/Vol] 3.77 10*6/uL Low 4.6-6.2 [facility] Comment on above: Performed By: #### L 500.2500, L100.0100 ####[facility] [address] [place], [address] RDW SD 57.7 fl High 35.1-43.9 [facility] Comment on above: Performed By: #### L 500.2500, L100.0100 ####[facility] [address] [place], [address] WBC (Bld) [#/Vol] 7.5 10*3/uL Normal 4.4-11.0 [facility] Comment on above: Performed By: #### L 500.2500, L100.0100 ####[facility] [address] [place], [address] Absolute Neut Normal 2.0-7.7 [facility] Comment on above: Result Comment: Canc elled via OM: Order cancelled - Patient discharged Performed By: #### L 100.0100, L500.2500 ####[facility] [address] [place], [address] HCT Normal 40-54 [facility] Comment on above: Result Comment: Canc elled via OM: Order cancelled - Patient discharged Performed By: #### L 100.0100, L500.2500 ####[facility] [address] [place], [address] HGB Normal 13.0-16.5 [facility] Comment on above: Result Comment: Canc elled via OM: Order cancelled - Patient discharged Performed By: #### L 100.0100, L500.2500 ####[facility] [address] [place], [address] MCH Normal 27.0-32.0 [facility] Comment on above: Result Comment: Canc elled via OM: Order cancelled - Patient discharged Performed By: #### L 100.0100, L500.2500 ####[facility] [address] [place], [address] MCHC Normal 32-36 [facility] Comment on above: Result Comment: Canc elled via OM: Order cancelled - Patient discharged Performed By: #### L 100.0100, L500.2500 ####[facility] [address] [place], [address] MCV Normal 80-94 [facility] Comment on above: Result Comment: Canc elled via OM: Order cancelled - Patient discharged Performed By: #### L 100.0100, L500.2500 ####[facility] [address] [place], [address] NEUT% Normal 47-70 [facility] Comment on above: Result Comment: Canc elled via OM: Order cancelled - Patient discharged Performed By: #### L 100.0100, L500.2500 ####[facility] [address] [place], [address] PLT Normal 150-450 [facility] Comment on above: Result Comment: Canc elled via OM: Order cancelled - Patient discharged Performed By: #### L 100.0100, L500.2500 ####[facility] [address] [place], [address] RBC Normal 4.6-6.2 [facility] Comment on above: Result Comment: Canc elled via OM: Order cancelled - Patient discharged Performed By: #### L 100.0100, L500.2500 ####[facility] [address] [place], [address] RDW CV Normal 11.6-14.6 [facility] Comment on above: Result Comment: Canc elled via OM: Order cancelled - Patient discharged Performed By: #### L 100.0100, L500.2500 ####[facility] [address] [place], [address] RDW SD Normal 35.1-43.9 [facility] Comment on above: Result Comment: Canc elled via OM: Order cancelled - Patient discharged Performed By: #### L 100.0100, L500.2500 ####[facility] [address] [place], [address] WBC Normal 4.4-11.0 [facility] Comment on above: Result Comment: Canc elled via OM: Order cancelled - Patient discharged Performed By: #### L 100.0100, L500.2500 ####[facility] [address] [place], [address] CO2 (BldV) [Moles/Vol]Ordere d By: Hebert Saavedra on 08-02-2024 CO2 [Moles/Vol] 33 mmol/L 23-33 [facility] CO2 (BldV) [Partial pressure ]Ordered By: Hebert Saavedra on 08-02-2024 Bed Mix Venous Bld PCO2 at Pat Temp 37.5 mmHg Low 41-51 [facility] Carbon dioxide, total [Moles /volume] in Central venous bloodOrdered By: Hebert Saavedra on 08-02-2024 CO2 [Moles/Vol] 21.3 mmol/L 21.0-32.0 [facility] Chest PA and Lateralon 08-02 Chest PA and Lateral Normal [facility] Chloride assayOrdered By: Adri Saavedra on 08-02-2024 Chloride [Moles/Vol] 113 mmol/L High 98-108 [facility] Determination of fraction of inspired oxygenOrdered By: Hebert Saavedra on 08-02-2024 Blood Gas Oxygen Percent 21.0 [facility] Emergency Department Summary on 08-02-2024 Emergency Department Summary Normal [facility] Eosinophil percentageOrdered By: Hebertgerman Saavedra on 08-02-2024 Eosinophils/100 WBC (Bld) 6.6 % High 0-5 [facility] Epithelial cells.squamous LM Ql (Urine sed)Ordered By: Hebert Saavedra on 08-02-2024 Epithelial cells.squamous LM.HPF (Urine sed) [#/Area] 0 /[HPF] 0-5 [facility] Erythrocyte distribution wid th (RBC) [Ratio]Ordered By: Hebert Saavedra on 08-02-2024 Erythrocyte distribution width (RBC) [Entitic vol] 57.7 fL High 35.1-43.9 [facility] Erythrocyte distribution wid th ratioOrdered By: Hebertgerman Saavedra on 08-02-2024 Erythrocyte distribution width (RBC) [Ratio] 17.7 % High 11.6-14.6 [facility] Erythrocyte distribution wid th standard deviationOrdered By: Hebertgerman Saavedra on 08-02-2024 Erythrocyte distribution width (RBC) [Ratio] 57.7 fl High 35.1-43.9 [facility] Estimation of creatinine moon aranceOrdered By: Hebert Saavedra on 08-02-2024 Estimated Creatinine Clearance Calc 73.63 ml/min 50-250 [facility] GFR/1.73 sq M.predicted elias g non-blacks MDRD (S/P/Bld) [Vol rate/Area]Ordered By: Hebert Saavedra on 08-02-2024 Estimated GFR (MDRD) Non-Af Amer 74 >60 [facility] Comment on above: mL/min/1.73m2 CKD-EP I Creatinine Equation (2020) Glomerular filtration rate ( GFR) estimation/1.73 sq m using serum, plasma, or whole bOrdered By: Hebert Saavedra on 08-02-2024 GFR/1.73 sq M.predicted among non-blacks MDRD (S/P/Bld) [Vol rate/Area] 74 mL/min/{1.73_m2} >60 [facility] Comment on above: mL/min/1.73m2 CKD-EP I Creatinine Equation (2020) Glucose Ql (U)Ordered By: Adri Saavedra on 08-02-2024 Urine Glucose (UA) Normal mg/dl Normal [facility] Hematocrit Auto (Bld) [Volum e fraction]Ordered By: Hebert Saavedra on 08-02-2024 Hematocrit (Bld) [Volume fraction] 33.7 % Low 40-54 [facility] Hemoglobin measurementOrdere d By: Hebert Saavedra on 08-02-2024 Hemoglobin (Bld) [Mass/Vol] 10.8 g/dL Low 13.0-16.5 [facility] Immature granulocytes/100 WB C Auto (Bld)Ordered By: Hebert Saavedra on 08-02-2024 Immature granulocytes/100 WBC (Bld) 0.500 % 0.0-0.9 [facility] Comment on above: IG% - Immature Granu locytes (promyelocytes, myelocytes and metamyelocytes) > 1% indicates that a LEFT SHIFT is Present. Ketones Test strip Ql (U)Ord ered By: Hebert Saavedra on 08-02-2024 Ketones Ql (U) Negative Negative [facility] Lymphocytes Auto (Unsp spec) [#/Vol]Ordered By: Hebert Saavedra on 08-02-2024 Lymphocytes (Bld) [#/Vol] 1.13 10*3/uL 0.83-4.51 [facility] Lymphocytes/100 WBC Auto (Un sp spec)Ordered By: Hebert Saavedra on 08-02-2024 Lymphocytes/100 WBC (Bld) 15.1 % Low 19-41 [facility] MCV (mean corpuscular volume ) determinationOrdered By: Hebert Saavedra on 08-02-2024 MCV (RBC) [Entitic vol] 89.4 fL 80-94 [facility] Mean corpuscular hemoglobin (MCH) determinationOrdered By: Hebert Saavedra on 08-02-2024 MCH (RBC) [Entitic mass] 28.6 pg 27.0-32.0 [facility] Mean corpuscular hemoglobin concentration (MCHC) determinationOrdered By: Hebert Saavedra on 08-02-2024 MCHC (RBC) [Mass/Vol] 32.0 g/dL 32-36 [facility] Mean platelet volume determi nationOrdered By: Hebert Saavedra on 08-02-2024 Platelet mean volume (Bld) [Entitic vol] 9.8 fL 6.2-12.0 [facility] Microscopic analysis of urin e for red blood cells (RBC)Ordered By: Hebert Saavedra on 08-02-2024 Microscopic analysis of urine for red blood cells (RBC) 0 SEEN /hpf 0-5 [facility] Urine RBC 0 SEEN /hpf 0-5 [facility] Monocyte percentageOrdered B y: Hebert Saavedra on 08-02-2024 Monocytes/100 WBC (Bld) 15.1 % High 0-10 [facility] Mucus LM Ql (Urine sed)Order ed By: Hebert Saavedra on 08-02-2024 Mucus Ql (Urine sed) 0 SEEN /hpf [facility] Neutrophil percentageOrdered By: Hebert Saavedra on 08-02-2024 Neutrophils/100 WBC (Bld) 62.3 % 47-70 [facility] Nitrite Test strip Ql (U)Ord ered By: Hebert Saavedra on 08-02-2024 Nitrite Ql (U) Negative Negative [facility] No Panel InformationOrdered By: Hebert Saavedra on 08-02-2024 Blood Gas Sample Site Not entered [facility] Blood Gas Specimen Type LUZ ELENA [facility] Oxygen Delivery Device Not entered [facility] LUZ ELENA [facility] Not entered [facility] Nucleated red blood cell per centageOrdered By: Hebert Saavedra on 08-02-2024 Nucleated RBC/100 WBC (Bld) [Ratio] 0 % 0-5 [facility] Oxygen (BldV) [Partial press ure]Ordered By: Hebert Saavedra on 08-02-2024 Venous Blood Partial Pressure O2 81 mmHg High 25-40 [facility] Platelet countOrdered By: Adri Saavedra on 08-02-2024 Platelets (Bld) [#/Vol] 237 10*3/uL 150-450 [facility] Potassium (Unsp spec) [Mass/ Vol]Ordered By: Hebert Saavedra on 08-02-2024 Potassium [Moles/Vol] 3.6 mmol/L 3.3-5.1 [facility] Potassium measurement (mass/ volume)Ordered By: Hebert Saavedra on 08-02-2024 Potassium (Unsp spec) [Mass/Vol] 3.6 mmol/L 3.3-5.1 [facility] Protein Test strip Ql (U)Ord ered By: Hebert Saavedra on 08-02-2024 Protein Ql (U) 15 mg/dl High Negative [facility] RBC Auto (Bld) [#/Vol]Ordere d By: Hebert Saavedra on 08-02-2024 RBC (Bld) [#/Vol] 3.77 10*6/uL Low 4.6-6.2 [facility] Serum creatinine measurement (mass/volume)Ordered By: Hebert Saavedra on 08-02-2024 Creatinine [Mass/Vol] 1.10 mg/dL 0.70-1.20 [facility] Serum glucose measurement (m ass/volume)Ordered By: Hebert Saavedra on 08-02-2024 Glucose [Mass/Vol] 103 mg/dL High 70-99 [facility] Serum or plasma calcium marlyn urement (mass/volume)Ordered By: Hebert Saavedra on 08-02-2024 Calcium [Mass/Vol] 8.9 mg/dL 7.6-11.0 [facility] Serum or plasma urea nitroge n measurement (mass/volume)Ordered By: Hebert Saavedra on 08-02-2024 Urea nitrogen [Mass/Vol] 23 mg/dL High 4-19 [facility] Sodium levelOrdered By: Hebert Saavedra on 08-02-2024 Sodium [Moles/Vol] 144 mmol/L 133-145 [facility] Squamous epithelial cells de tection in urine sediment by light microscopyOrdered By: Hebert Saavedra on 08-02-2024 Epithelial cells.squamous LM Ql (Urine sed) 0 SEEN /hpf 0-5 [facility] Urinalysis, Completeon 08-02 WBC 0-5 SEEN Normal 0-5 [facility] Comment on above: Order Comment: CLEAN CATCH Performed By: #### L 400.0001 ####[facility] [address] [place], [address] BACTERIA 0 SEEN Normal None Seen [facility] Comment on above: Order Comment: CLEAN CATCH Performed By: #### L 400.0001 ####[facility] [address] [place], [address] EPI,SQUAMOUS 0 SEEN Normal 0-5 [facility] Comment on above: Order Comment: CLEAN CATCH Performed By: #### L 400.0001 ####[facility] [address] [place], [address] Mucus Ql (Urine sed) 0 SEEN Normal [facility] Comment on above: Order Comment: CLEAN CATCH Performed By: #### L 400.0001 ####[facility] [address] [place], [address] RBC 0 SEEN Normal 0-5 [facility] Comment on above: Order Comment: CLEAN CATCH Performed By: #### L 400.0001 ####[facility] [address] [place], [address] Urine Cultureon 08-02-2024 URC Normal [facility] Comment on above: Performed By: #### L 400.0001, M100.2200 ####[facility] [address] [place], [place], [id number] Urine blood detectionOrdered By: Hebert Saavedra on 08-02-2024 Urine Occult Blood 10 /ul High Negative [facility] Urine clarityOrdered By: Hebert Saavedra on 08-02-2024 Clarity (U) Clear Clear [facility] Urine color determinationOrd ered By: Hebert Saavedra on 08-02-2024 Color (U) Yellow Yellow [facility] Urine glucose detectionOrder ed By: Hebert Saavedra on 08-02-2024 Glucose Ql (U) Normal mg/dl Normal [facility] Urine leukocyte esterase det ection by dipstickOrdered By: Hebert Saavedra on 08-02-2024 Leukocyte esterase Test strip Ql (U) 500 /ul High Negative [facility] Urine pHOrdered By: Hebert porter on 08-02-2024 pH (U) 7.0 [pH] 5.0 - 8.0 [facility] Urine sediment bacteria coun t by microscopy (number/high power field)Ordered By: Hebert Saavedra on 08-02-2024 Bacteria LM.HPF (Urine sed) [#/Area] 0 /[HPF] None Seen [facility] Urine specific gravity measu rementOrdered By: Hebert Saavedra on 08-02-2024 Specific gravity (U) [Rel density] 1.005 1.002-1.030 [facility] Urine urobilinogen measureme ntOrdered By: Hebert Saavedra on 08-02-2024 Urobilinogen Ql (U) Normal mg/dl Normal [facility] Urobilinogen Ql (U)Ordered B y: Hebert Saavedra on 08-02-2024 Urine Urobilinogen Normal mg/dl Normal [facility] Venous Blood Gason Blood Gas Type LUZ ELENA Normal [facility] Comment on above: Performed By: #### L 9000.0810 ####[facility] [address] [facility] [address] [place], [place], [id number] CO2 [Moles/Vol] 33 mmol/L Normal 23-33 [facility] Comment on above: Performed By: #### L 9000.0810 ####[facility] [address] [place], [address] FI02 21.0 Normal [facility] Comment on above: Performed By: #### L 9000.0810 ####[facility] [address] [place], [address] HCO3 (Bld) [Moles/Vol] 32 mmol/L High 22-26 [facility] Comment on above: Performed By: #### L 900.0810 ####[facility] [address] [place], [address] O2 Delivery Dev Not entered [facility] Comment on above: Performed By: #### L 900.0810 ####[facility] [address] [place], [address] SITE Not entered [facility] Comment on above: Performed By: #### L 900.0810 ####[facility] [address] [place], [address] VBG BE 10 mmol/L High -1.0-3.5 [facility] Comment on above: Performed By: #### L 9000.0810 ####[facility] [address] [place], [address] VBG pCO2 37.5 mmHg Low 41-51 [facility] Comment on above: Performed By: #### L 9000.0810 ####[facility] [address] [place], [address] VBG pH 7.54 High 7.32-7.42 [facility] Comment on above: Performed By: #### L 9000.0810 ####[facility] [address] [place], [address] VBG PO2 81 mmHg High 25-40 [facility] Comment on above: Performed By: #### L 9000.0810 ####[facility] [address] [place], [place], [address] VBG SO2 97 High 50-70 [facility] Comment on above: Performed By: #### L 9000.0810 ####[facility] [address] [place], [address] Venous blood base excess gregoria surementOrdered By: Hebert Saavedra on 08-02-2024 Base excess Calc (BldV) [Moles/Vol] 10 mmol/L High -1.0-3.5 [facility] Venous blood bicarbonate gregoria surementOrdered By: Hebert Saavedra on 08-02-2024 HCO3 (Bld) [Moles/Vol] 32 mmol/L High 22-26 [facility] Venous blood oxygen saturati on measurementOrdered By: Hebert Saavedra on 08-02-2024 Oxygen saturation in Blood 97 % High 50-70 [facility] Venous blood pH measurementO rdered By: Hebert Saavedra on 08-02-2024 pH (BldV) 7.54 [pH] High 7.32-7.42 [facility] Venous blood partial pressur e of carbon dioxide measurementOrdered By: Hebert Saavedra on 08-02-2024 CO2 (BldV) [Partial pressure] 37.5 mm[Hg] Low 41-51 [facility] Venous blood partial pressur e of oxygen measurementOrdered By: Hebert Saavedra on 08-02-2024 Oxygen (BldV) [Partial pressure] 81 mm[Hg] High 25-40 [facility] White blood cell (WBC) count Ordered By: Hebert Saavedra on 08-02-2024 WBC (Bld) [#/Vol] 7.5 10*3/uL 4.4-11.0 [facility] White blood cell countOrdere d By: Hebert Saavedra on 08-02-2024 Urine WBC 0-5 SEEN /hpf 0-5 [facility] White blood cell count 0-5 SEEN /hpf 0-5 [facility] pH (BldV)Ordered By: Hebert muniz on 08-02-2024 Venous Blood pH 7.54 High 7.32-7.42 [facility] Absolute lymphocyte countOrd ered By: Miller Blank on 08-01-2024 Lymphocytes Auto (Unsp spec) [#/Vol] 1.14 10*3/uL 0.83-4.51 [facility] Absolute neutrophil countOrd ered By: Miller Blank on 08-01-2024 Neutrophils (Bld) [#/Vol] 6.1 10*3/uL 2.0-7.7 [facility] Ammoniaon 08-01-2024 Ammonia (P) [Moles/Vol] 43.8 umol/L Normal 16-60 [facility] Comment on above: Performed By: #### L 503.5510 ####[facility] [address] [facility] [address] Anion gap in Serum or Plasma Ordered By: Miller Blank on 08-01-2024 Anion gap [Moles/Vol] 10 mmol/L 5-15 [facility] Automated lymphocyte count a s percentage of total leukocytesOrdered By: Miller Blank on 08-01-2024 Lymphocytes/100 WBC Auto (Unsp spec) 13.2 % Low 19-41 [facility] BUN/creatinine ratioOrdered By: Miller Blank on 08-01-2024 Urea nitrogen/Creatinine [Mass ratio] 12.9 mg/mg 10-20 [facility] Basic Metabolic Profile (BMP )on 08-01-2024 BUN/CRE 12.9 RATIO Normal 10-20 [facility] Comment on above: Performed By: #### L 100.0100, L500.2500 ####[facility] [address] [place], [address] Calcium [Mass/Vol] 8.7 mg/dL Normal 7.6-11.0 [facility] Comment on above: Performed By: #### L 100.0100, L500.2500 ####[facility] [address] [place], [address] Chloride [Moles/Vol] 113 mmol/L High 98-108 [facility] Comment on above: Performed By: #### L 100.0100, L500.2500 ####[facility] [address] [place], [address] CO2 [Moles/Vol] 20.3 mmol/L Low 21.0-32.0 [facility] Comment on above: Performed By: #### L 100.0100, L500.2500 ####[facility] [address] [place], [address] Creatinine [Mass/Vol] 1.06 mg/dL Normal 0.70-1.20 [facility] Comment on above: Performed By: #### L 100.0100, L500.2500 ####[facility] [address] [place], [address] ECRCL 73.88 ml/min Normal 50-250 [facility] Comment on above: Performed By: #### L 100.0100, L500.2500 ####[facility] [address] [place], [address] GAP 10 Normal 5-15 [facility] Comment on above: Performed By: #### L 100.0100, L500.2500 ####[facility] [address] [place], [address] GFR/1.73 sq M.predicted among non-blacks MDRD (S/P/Bld) [Vol rate/Area] 77 mL/min/{1.73_m2} Normal >60 [facility] Comment on above: Result Comment: mL/m in/1.73m2 CKD-EPI Creatinine Equation (2020) Performed By: #### L 100.0100, L500.2500 ####[facility] [address] [place], [address] Glucose [Mass/Vol] 165 mg/dL High 70-99 [facility] Comment on above: Performed By: #### L 100.0100, L500.2500 ####[facility] [address] [place], [address] Potassium [Moles/Vol] 3.6 mmol/L Normal 3.3-5.1 [facility] Comment on above: Performed By: #### L 100.0100, L500.2500 ####[facility] [address] [place], [address] Sodium [Moles/Vol] 142 mmol/L Normal 133-145 [facility] Comment on above: Performed By: #### L 100.0100, L500.2500 ####[facility] [address] [place], [address] Urea nitrogen [Mass/Vol] 14 mg/dL Normal 4-19 [facility] Comment on above: Performed By: #### L 100.0100, L500.2500 ####[facility] [address] [place], [address] Basophil percentageOrdered B y: Miller Blank on 08-01-2024 Basophils/100 WBC (Bld) 0.3 % 0-1 [facility] Bedside Glucoseon 08-01-2024 FINGERSTICK GLU 131 mg/dL High 74-106 [facility] Comment on above: Result Comment: FATEMEH GEMENT OF PATIENT CARE PER NURSING PROTOCOL Performed By: #### L 501.080 ####[facility] [address] [place], [address] FINGERSTICK GLU 152 mg/dL High 74-106 [facility] Comment on above: Result Comment: FATEMEH GEMENT OF PATIENT CARE PER NURSING PROTOCOL Performed By: #### L 501.080 ####[facility] [address] [place], [address] CBC W/Diff, Automatedon 05-0 Absolute Lymph 1.14 X10 3/uL Normal 0.83-4.51 [facility] Comment on above: Performed By: #### L 100.0100, L500.2500 ####[facility] [address] [place], [address] Absolute Neut 6.1 X10 3/uL Normal 2.0-7.7 [facility] Comment on above: Performed By: #### L 100.0100, L500.2500 ####[facility] [address] [place], [address] Basophils/100 WBC (Bld) 0.3 % Normal 0-1 [facility] Comment on above: Performed By: #### L 100.0100, L500.2500 ####[facility] [address] [place], [address] Eosinophils/100 WBC (Bld) 2.3 % Normal 0-5 [facility] Comment on above: Performed By: #### L 100.0100, L500.2500 ####[facility] [address] [place], [address] Erythrocyte distribution width (RBC) [Ratio] 17.6 % High 11.6-14.6 [facility] Comment on above: Performed By: #### L 100.0100, L500.2500 ####[facility] [address] [place], [address] Hematocrit (Bld) [Volume fraction] 33.4 % Low 40-54 [facility] Comment on above: Performed By: #### L 100.0100, L500.2500 ####[facility] [address] [place], [address] Hemoglobin (Bld) [Mass/Vol] 10.7 g/dL Low 13.0-16.5 [facility] Comment on above: Performed By: #### L 100.0100, L500.2500 ####[facility] [address] [place], [address] IG% 0.900 Normal 0.0-0.9 [facility] Comment on above: Result Comment: IG% - Immature Granulocytes (promyelocytes, myelocytes andmetamyelocytes) > 1% indicates that a LEFT SHIFT is Present. Performed By: #### L 100.0100, L500.2500 ####[facility] [address] [place], [address] Lymphocytes/100 WBC (Bld) 13.2 % Low 19-41 [facility] Comment on above: Performed By: #### L 100.0100, L500.2500 ####[facility] [address] [place], [address] MCH (RBC) [Entitic mass] 28.7 pg Normal 27.0-32.0 [facility] Comment on above: Performed By: #### L 100.0100, L500.2500 ####[facility] [address] [place], [address] MCHC (RBC) [Mass/Vol] 32.0 g/dL Normal 32-36 [facility] Comment on above: Performed By: #### L 100.0100, L500.2500 ####[facility] [address] [place], [address] MCV (RBC) [Entitic vol] 89.5 fL Normal 80-94 [facility] Comment on above: Performed By: #### L 100.0100, L500.2500 ####[facility] [address] [place], [address] Monocytes/100 WBC (Bld) 12.3 % High 0-10 [facility] Comment on above: Performed By: #### L 100.0100, L500.2500 ####[facility] [address] [place], [address] Neutrophils/100 WBC (Bld) 71.0 % High 47-70 [facility] Comment on above: Performed By: #### L 100.0100, L500.2500 ####[facility] [address] [place], [address] Nucleated RBC (Bld) [#/Vol] 0 10*3/uL Normal 0-5 [facility] Comment on above: Performed By: #### L 100.0100, L500.2500 ####[facility] [address] [place], [address] Platelet mean volume (Bld) [Entitic vol] 10.2 fL Normal 6.2-12.0 [facility] Comment on above: Performed By: #### L 100.0100, L500.2500 ####[facility] [address] [place], [address] Platelets (Bld) [#/Vol] 222 10*3/uL Normal 150-450 [facility] Comment on above: Performed By: #### L 100.0100, L500.2500 ####[facility] [address] [place], [address] RBC (Bld) [#/Vol] 3.73 10*6/uL Low 4.6-6.2 [facility] Comment on above: Performed By: #### L 100.0100, L500.2500 ####[facility] [address] [place], [address] RDW SD 57.0 fl High 35.1-43.9 [facility] Comment on above: Performed By: #### L 100.0100, L500.2500 ####[facility] [address] [place], [address] WBC (Bld) [#/Vol] 8.6 10*3/uL Normal 4.4-11.0 [facility] Comment on above: Performed By: #### L 100.0100, L500.2500 ####[facility] [address] [place], [address] Carbon dioxide, total [Moles /volume] in Central venous bloodOrdered By: Miller Blank on 08-01-2024 CO2 [Moles/Vol] 20.3 mmol/L Low 21.0-32.0 [facility] Chloride assayOrdered By: Keegan Blank on 08-01-2024 Chloride [Moles/Vol] 113 mmol/L High 98-108 [facility] Consultation - Urologyon Consultation - Urology Normal [facility] Eosinophil percentageOrdered By: Miller Blank on 08-01-2024 Eosinophils/100 WBC (Bld) 2.3 % 0-5 [facility] Erythrocyte distribution wid th (RBC) [Ratio]Ordered By: Miller Blank on 08-01-2024 Erythrocyte distribution width (RBC) [Entitic vol] 57.0 fL High 35.1-43.9 [facility] Erythrocyte distribution wid th ratioOrdered By: Miller Blank on 08-01-2024 Erythrocyte distribution width (RBC) [Ratio] 17.6 % High 11.6-14.6 [facility] Erythrocyte distribution wid th standard deviationOrdered By: Miller Blank on 08-01-2024 Erythrocyte distribution width (RBC) [Ratio] 57.0 fl High 35.1-43.9 [facility] Estimation of creatinine moon aranceOrdered By: Miller Blank on 08-01-2024 Estimated Creatinine Clearance Calc 73.88 ml/min 50-250 [facility] GFR/1.73 sq M.predicted elias g non-blacks MDRD (S/P/Bld) [Vol rate/Area]Ordered By: Miller Blank on 08-01-2024 Estimated GFR (MDRD) Non-Af Amer 77 >60 [facility] Comment on above: mL/min/1.73m2 CKD-EP I Creatinine Equation (2020) Glomerular filtration rate ( GFR) estimation/1.73 sq m using serum, plasma, or whole bOrdered By: Miller Blank on 08-01-2024 GFR/1.73 sq M.predicted among non-blacks MDRD (S/P/Bld) [Vol rate/Area] 77 mL/min/{1.73_m2} >60 [facility] Comment on above: mL/min/1.73m2 CKD-EP I Creatinine Equation (2020) [facility] deOrdered By: Basilio Dill on 08-01-2024 Bedside Glucose (Misc Panel) 131 mg/dL High 74-106 [facility] Comment on above: MANAGEMENT OF PATIEN T CARE PER NURSING PROTOCOL Glucose [Mass/Vol] 131 mg/dL High 74-106 [facility] Comment on above: MANAGEMENT OF PATIEN T CARE PER NURSING PROTOCOL Hematocrit Auto (Bld) [Volum e fraction]Ordered By: Miller Blank on 08-01-2024 Hematocrit (Bld) [Volume fraction] 33.4 % Low 40-54 [facility] Hemoglobin measurementOrdere d By: Miller Blank on 08-01-2024 Hemoglobin (Bld) [Mass/Vol] 10.7 g/dL Low 13.0-16.5 [facility] Immature granulocytes/100 WB C Auto (Bld)Ordered By: Miller Blank on 08-01-2024 Immature granulocytes/100 WBC (Bld) 0.900 % 0.0-0.9 [facility] Comment on above: IG% - Immature Granu locytes (promyelocytes, myelocytes and metamyelocytes) > 1% indicates that a LEFT SHIFT is Present. Kidney and Bladderon 025 Kidney and Bladder Normal [facility] Lymphocytes Auto (Unsp spec) [#/Vol]Ordered By: Miller Blank on 08-01-2024 Lymphocytes (Bld) [#/Vol] 1.14 10*3/uL 0.83-4.51 [facility] Lymphocytes/100 WBC Auto (Un sp spec)Ordered By: Miller Blank on 08-01-2024 Lymphocytes/100 WBC (Bld) 13.2 % Low 19-41 [facility] MCV (mean corpuscular volume ) determinationOrdered By: Miller Blank on 08-01-2024 MCV (RBC) [Entitic vol] 89.5 fL 80-94 [facility] Mean corpuscular hemoglobin (MCH) determinationOrdered By: Miller Blank on 08-01-2024 MCH (RBC) [Entitic mass] 28.7 pg 27.0-32.0 [facility] Mean corpuscular hemoglobin concentration (MCHC) determinationOrdered By: Miller Blank on 08-01-2024 MCHC (RBC) [Mass/Vol] 32.0 g/dL 32-36 [facility] Mean platelet volume determi nationOrdered By: Miller Blank on 08-01-2024 Platelet mean volume (Bld) [Entitic vol] 10.2 fL 6.2-12.0 [facility] Monocyte percentageOrdered B y: Miller Blank on 08-01-2024 Monocytes/100 WBC (Bld) 12.3 % High 0-10 [facility] Neutrophil percentageOrdered By: Miller Blank on 08-01-2024 Neutrophils/100 WBC (Bld) 71.0 % High 47-70 [facility] Nucleated red blood cell per centageOrdered By: Miller Blank on 08-01-2024 Nucleated RBC/100 WBC (Bld) [Ratio] 0 % 0-5 [facility] Platelet countOrdered By: Keegan Blank on 08-01-2024 Platelets (Bld) [#/Vol] 222 10*3/uL 150-450 [facility] Potassium (Unsp spec) [Mass/ Vol]Ordered By: Miller Blank on 08-01-2024 Potassium [Moles/Vol] 3.6 mmol/L 3.3-5.1 [facility] Potassium measurement (mass/ volume)Ordered By: Miller Blank on 08-01-2024 Potassium (Unsp spec) [Mass/Vol] 3.6 mmol/L 3.3-5.1 [facility] RBC Auto (Bld) [#/Vol]Ordere d By: Miller Blank on 08-01-2024 RBC (Bld) [#/Vol] 3.73 10*6/uL Low 4.6-6.2 [facility] Serum creatinine measurement (mass/volume)Ordered By: Miller Blank on 08-01-2024 Creatinine [Mass/Vol] 1.06 mg/dL 0.70-1.20 [facility] Serum glucose measurement (m ass/volume)Ordered By: Miller Blank on 08-01-2024 Glucose [Mass/Vol] 165 mg/dL High 70-99 [facility] Serum or plasma calcium marlyn urement (mass/volume)Ordered By: Miller Blank on 08-01-2024 Calcium [Mass/Vol] 8.7 mg/dL 7.6-11.0 [facility] Serum or plasma urea nitroge n measurement (mass/volume)Ordered By: Miller Blank on 08-01-2024 Urea nitrogen [Mass/Vol] 14 mg/dL 4-19 [facility] Sodium levelOrdered By: Gerardo Blank on 08-01-2024 Sodium [Moles/Vol] 142 mmol/L 133-145 [facility] Trough vancomycin levelOrder ed By: Miller Blank on 08-01-2024 Vancomycin trough [Mass/Vol] 23.9 ug/mL High 5.0-15.0 [facility] Comment on above: Recommended goal tro ugh [...] therapy recommended for serious lifethreatening infections include:- Bqhhrabedi-Kjczfntfsuqg-Ijvizgsrb (Ventilator/Healtcare Associated)-Sepsis PLEASE CONTACT PHARMACY SERVICES (#[id number]) FOR INTERPRETATIONOF RESULTS. Vancomycin trough [Mass/Vol] Ordered By: Miller Blank on 08-01-2024 Vancomycin Level Trough 23.9 ug/mL High 5.0-15.0 [facility] Comment on above: Recommended goal tro ugh [...] therapy recommended for serious lifethreatening infections include:- Frpzyynkyd-Ojdxoebwbywa-Wumsldgxx (Ventilator/Healtcare Associated)-Sepsis PLEASE CONTACT PHARMACY SERVICES (#[id number]) FOR INTERPRETATIONOF RESULTS. Vancomycin, Trough Levelon 0 08-01-2024 VANCO, TROUGH 23.9 ug/mL High 5.0-15.0 [facility] Comment on above: Order Comment: Comme nts: Trough to be drawn 30 mins prior to scheduled [id number] Result Comment: Jhon mmended goal trough ranges [...] therapy recommended for serious lifethreatening infections include:- Iryiyamowk-Kselwelmvhjr-Miyjswbkc (Ventilator/Healtcare Associated)-SepsisPLEASE CONTACT PHARMACY SERVICES (#[id number]) FOR INTERPRETATIONOF RESULTS. Performed By: #### L 501.8820 ####[facility] [address] [place], [place], [id number] Venous blood ammonia measure mentOrdered By: Isha Zurita on 08-01-2024 Ammonia (P) [Moles/Vol] 43.8 umol/L 16-60 [facility] White blood cell (WBC) count Ordered By: Miller Blank on 08-01-2024 WBC (Bld) [#/Vol] 8.6 10*3/uL 4.4-11.0 [facility] Basic Metabolic Profile (BMP )on 07-31-2024 BUN/CRE 14.8 RATIO Normal 10-20 [facility] Comment on above: Performed By: #### L 501.2300, L500.2500, L100.0100, L501.5200 ####[facility] [address] [place], [place], [id number] Calcium [Mass/Vol] 8.8 mg/dL Normal 7.6-11.0 [facility] Comment on above: Performed By: #### L 501.2300, L500.2500, L100.0100, L501.5200 ####[facility] [address] [place], [address] Chloride [Moles/Vol] 111 mmol/L High 98-108 [facility] Comment on above: Performed By: #### L 501.2300, L500.2500, L100.0100, L501.5200 ####[facility] [address] [place], [address] CO2 [Moles/Vol] 19.9 mmol/L Low 21.0-32.0 [facility] Comment on above: Performed By: #### L 501.2300, L500.2500, L100.0100, L501.5200 ####[facility] [address] [place], [address] Creatinine [Mass/Vol] 0.89 mg/dL Normal 0.70-1.20 [facility] Comment on above: Performed By: #### L 501.2300, L500.2500, L100.0100, L501.5200 ####[facility] [address] [place], [address] ECRCL 88.54 ml/min Normal 50-250 [facility] Comment on above: Performed By: #### L 501.2300, L500.2500, L100.0100, L501.5200 ####[facility] [address] [place], [address] GAP 10 Normal 5-15 [facility] Comment on above: Performed By: #### L 501.2300, L500.2500, L100.0100, L501.5200 ####[facility] [address] [place], [address] GFR/1.73 sq M.predicted among non-blacks MDRD (S/P/Bld) [Vol rate/Area] 94 mL/min/{1.73_m2} Normal >60 [facility] Comment on above: Result Comment: mL/m in/1.73m2 CKD-EPI Creatinine Equation (2020) Performed By: #### L 501.2300, L500.2500, L100.0100, L501.5200 ####[facility] [address] [place], [address] Glucose [Mass/Vol] 149 mg/dL High 70-99 [facility] Comment on above: Performed By: #### L 501.2300, L500.2500, L100.0100, L501.5200 ####[facility] [address] [place], [address] Potassium [Moles/Vol] 3.6 mmol/L Normal 3.3-5.1 [facility] Comment on above: Performed By: #### L 501.2300, L500.2500, L100.0100, L501.5200 ####[facility] [address] [place], [address] Sodium [Moles/Vol] 140 mmol/L Normal 133-145 [facility] Comment on above: Performed By: #### L 501.2300, L500.2500, L100.0100, L501.5200 ####[facility] [address] [place], [address] Urea nitrogen [Mass/Vol] 13 mg/dL Normal 4-19 [facility] Comment on above: Performed By: #### L 501.2300, L500.2500, L100.0100, L501.5200 ####[facility] [address] [place], [address] Bedside Glucoseon 07-31-2024 FINGERSTICK GLU 140 mg/dL High 74-106 [facility] Comment on above: Result Comment: FATEMEH MILLER OF PATIENT CARE PER NURSING PROTOCOL Performed By: #### L 501.080 ####[facility] [address] [place], [address] FINGERSTICK GLU 166 mg/dL High 74-106 [facility] Comment on above: Result Comment: FATMEEH GEMENT OF PATIENT CARE PER NURSING PROTOCOL Performed By: #### L 501.080 ####[facility] [address] [place], [address] FINGERSTICK GLU 185 mg/dL High [address] [facility] Comment on above: Result Comment: FATEMEH GEMENT OF PATIENT CARE PER NURSING PROTOCOL Performed By: #### L 501.080 ####[facility] [address] [place], [address] FINGERSTICK GLU 139 mg/dL High -106 [facility] Comment on above: Result Comment: FATEMEH GEMENT OF PATIENT CARE PER NURSING PROTOCOL Performed By: #### L 501.080 ####[facility] [address] [place], [address] FINGERSTICK GLU 162 mg/dL High -106 [facility] Comment on above: Result Comment: FATEMEH GEMENT OF PATIENT CARE PER NURSING PROTOCOL Performed By: #### L 501.080 ####[facility] [address] [place], [address] CBC W/Diff, Automatedon 05-0 4-5 Absolute Lymph 0.96 X10 3/uL Normal 0.83-4.51 [facility] Comment on above: Performed By: #### L 501.2300, L500.2500, L100.0100, L501.5200 ####[facility] [address] [place], [address] Absolute Neut 9.0 X10 3/uL High 2.0-7.7 [facility] Comment on above: Performed By: #### L 501.2300, L500.2500, L100.0100, L501.5200 ####[facility] [address] [place], [address] Basophils/100 WBC (Bld) 0.3 % Normal 0-1 [facility] Comment on above: Performed By: #### L 501.2300, L500.2500, L100.0100, L501.5200 ####[facility] [address] [place], [address] Eosinophils/100 WBC (Bld) 1.8 % Normal 0-5 [facility] Comment on above: Performed By: #### L 501.2300, L500.2500, L100.0100, L501.5200 ####[facility] [address] [place], [address] Erythrocyte distribution width (RBC) [Ratio] 17.2 % High 11.6-14.6 [facility] Comment on above: Performed By: #### L 501.2300, L500.2500, L100.0100, L501.5200 ####[facility] [address] [place], [address] Hematocrit (Bld) [Volume fraction] 34.1 % Low 40-54 [facility] Comment on above: Performed By: #### L 501.2300, L500.2500, L100.0100, L501.5200 ####[facility] [address] [place], [address] Hemoglobin (Bld) [Mass/Vol] 11.0 g/dL Low 13.0-16.5 [facility] Comment on above: Performed By: #### L 501.2300, L500.2500, L100.0100, L501.5200 ####[facility] [address] [place], [address] IG% 0.600 Normal 0.0-0.9 [facility] Comment on above: Result Comment: IG% - Immature Granulocytes (promyelocytes, myelocytes andmetamyelocytes) > 1% indicates that a LEFT SHIFT is Present. Performed By: #### L 501.2300, L500.2500, L100.0100, L501.5200 ####[facility] [address] [place], [address] Lymphocytes/100 WBC (Bld) 8.7 % Low 19-41 [facility] Comment on above: Performed By: #### L 501.2300, L500.2500, L100.0100, L501.5200 ####[facility] [address] [place], [address] MCH (RBC) [Entitic mass] 28.6 pg Normal 27.0-32.0 [facility] Comment on above: Performed By: #### L 501.2300, L500.2500, L100.0100, L501.5200 ####[facility] [address] [place], [address] MCHC (RBC) [Mass/Vol] 32.3 g/dL Normal 32-36 [facility] Comment on above: Performed By: #### L 501.2300, L500.2500, L100.0100, L501.5200 ####[facility] [address] [place], [address] MCV (RBC) [Entitic vol] 88.6 fL Normal 80-94 [facility] Comment on above: Performed By: #### L 501.2300, L500.2500, L100.0100, L501.5200 ####[facility] [address] [place], [address] Monocytes/100 WBC (Bld) 7.3 % Normal 0-10 [facility] Comment on above: Performed By: #### L 501.2300, L500.2500, L100.0100, L501.5200 ####[facility] [address] [place], [address] Neutrophils/100 WBC (Bld) 81.3 % High 47-70 [facility] Comment on above: Performed By: #### L 501.2300, L500.2500, L100.0100, L501.5200 ####[facility] [address] [place], [address] Nucleated RBC (Bld) [#/Vol] 0 10*3/uL Normal 0-5 [facility] Comment on above: Performed By: #### L 501.2300, L500.2500, L100.0100, L501.5200 ####[facility] [address] [place], [address] Platelet mean volume (Bld) [Entitic vol] 9.6 fL Normal 6.2-12.0 [facility] Comment on above: Performed By: #### L 501.2300, L500.2500, L100.0100, L501.5200 ####[facility] [address] [place], [address] Platelets (Bld) [#/Vol] 239 10*3/uL Normal 150-450 [facility] Comment on above: Performed By: #### L 501.2300, L500.2500, L100.0100, L501.5200 ####[facility] [address] [place], [address] RBC (Bld) [#/Vol] 3.85 10*6/uL Low 4.6-6.2 [facility] Comment on above: Performed By: #### L 501.2300, L500.2500, L100.0100, L501.5200 ####[facility] [address] [place], [address] RDW SD 55.7 fl High 35.1-43.9 [facility] Comment on above: Performed By: #### L 501.2300, L500.2500, L100.0100, L501.5200 ####[facility] [address] [place], [address] WBC (Bld) [#/Vol] 11.1 10*3/uL High 4.4-11.0 [facility] Comment on above: Performed By: #### L 501.2300, L500.2500, L100.0100, L501.5200 ####[facility] [address] [place], [address] Magnesiumon 07-31-2024 Magnesium [Mass/Vol] 1.8 mg/dL Normal 1.5-2.2 [facility] Comment on above: Performed By: #### L 501.2300, L500.2500, L100.0100, L501.5200 ####[facility] [address] [place], [address] Magnesium (Unsp spec) [Mass/ Vol]Ordered By: Miller Blank on 07-31-2024 Magnesium [Mass/Vol] 1.8 mg/dL 1.5-2.2 [facility] Magnesium measurement (mass/ volume)Ordered By: Miller Blank on 07-31-2024 Magnesium (Unsp spec) [Mass/Vol] 1.8 mg/dL 1.5-2.2 [facility] Phosphoruson 07-31-2024 Phosphate [Mass/Vol] 2.8 mg/dL Normal 2.7-4.5 [facility] Comment on above: Performed By: #### L 501.2300, L500.2500, L100.0100, L501.5200 ####[facility] [address] [place], [address] Serum phosphorus measurement Ordered By: Miller Blank on 07-31-2024 Phosphorus Level 2.8 mg/dL 2.7-4.5 [facility] Vancomycin, Trough Levelon 0 07-31-2024 VANCO, TROUGH 19.4 ug/mL High 5.0-15.0 [facility] Comment on above: Order Comment: Comme nts: Trough to be drawn 30 mins prior to scheduled [id number] Result Comment: Jhon mmended goal trough ranges [...] therapy recommended for serious lifethreatening infections include:- Chulhawumh-Fsxwvnynrejo-Jpwhndlml (Ventilator/Healtcare Associated)-SepsisPLEASE CONTACT PHARMACY SERVICES (#[id number]) FOR INTERPRETATIONOF RESULTS. Performed By: #### L 501.8820 ####[facility] [address] [place], [address] Bedside Glucoseon 07-30-2024 FINGERSTICK GLU 134 mg/dL High 74-106 [facility] Comment on above: Result Comment: FATEMEH GEMENT OF PATIENT CARE PER NURSING PROTOCOL Performed By: #### L 501.080 ####[facility] [address] [place], [address] FINGERSTICK GLU 151 mg/dL High 74-106 [facility] Comment on above: Result Comment: FATEMEH GEMENT OF PATIENT CARE PER NURSING PROTOCOL Performed By: #### L 501.080 ####[facility] [address] [place], [address] Bilirubin, totalOrdered By: Isha Zurita on 07-30-2024 Bilirubin [Mass/Vol] 0.28 mg/dL 0.00-1.30 [facility] Blood manual differential co mment interpretation (narrative result)Ordered By: Isha Zurita on 07-30-2024 Manual differential comment Dmitriy (Bld) [Interp] SCANNED [facility] Comment on above: SLIGHT MONOCYTOSIS N OTED CBC W/Diff, Automatedon SMEAR COMMENT SCANNED Normal [facility] Comment on above: Result Comment: SLIG HT MONOCYTOSIS NOTED Performed By: #### L 501.9985, L100.0100, L500.4050 ####[facility] [address] [place], [address] Comprehensive Metabolic Prof ilon 07-30-2024 Albumin [Mass/Vol] 3.0 g/dL Low 3.4-4.8 [facility] Comment on above: Performed By: #### L 501.9985, L100.0100, L500.4050 ####[facility] [address] [place], [address] Albumin/Globulin [Mass ratio] 1.0 {ratio} Normal 0.9-2.4 [facility] Comment on above: Performed By: #### L 501.9985, L100.0100, L500.4050 ####[facility] [address] [place], [address] ALK PHOS 95 U/L Normal 40-129 [facility] Comment on above: Performed By: #### L 501.9985, L100.0100, L500.4050 ####[facility] [address] [place], [address] ALT [Catalytic activity/Vol] 16 U/L Normal <=46 [facility] Comment on above: Performed By: #### L 501.9985, L100.0100, L500.4050 ####[facility] [address] [place], [address] AST [Catalytic activity/Vol] 14 U/L Normal <=37 [facility] Comment on above: Performed By: #### L 501.9985, L100.0100, L500.4050 ####[facility] [address] [place], [address] Bilirubin [Mass/Vol] 0.28 mg/dL Normal 0.00-1.30 [facility] Comment on above: Performed By: #### L 501.9985, L100.0100, L500.4050 ####[facility] [address] [place], [address] BUN/CRE 16.0 RATIO Normal 10-20 [facility] Comment on above: Performed By: #### L 501.9985, L100.0100, L500.4050 ####[facility] [address] [place], [address] Calcium [Mass/Vol] 8.3 mg/dL Normal 7.6-11.0 [facility] Comment on above: Performed By: #### L 501.9985, L100.0100, L500.4050 ####[facility] [address] [place], [address] Chloride [Moles/Vol] 112 mmol/L High 98-108 [facility] Comment on above: Performed By: #### L 501.9985, L100.0100, L500.4050 ####[facility] [address] [place], [address] CO2 [Moles/Vol] 20.2 mmol/L Low 21.0-32.0 [facility] Comment on above: Performed By: #### L 501.9985, L100.0100, L500.4050 ####[facility] [address] [place], [address] Creatinine [Mass/Vol] 0.53 mg/dL Low 0.70-1.20 [facility] Comment on above: Performed By: #### L 501.9985, L100.0100, L500.4050 ####[facility] [address] [place], [address] ECRCL 98.55 ml/min Normal 50-250 [facility] Comment on above: Performed By: #### L 501.9985, L100.0100, [id number] ####[facility] [address] [place], [address] GAP 10 Normal 5-15 [facility] Comment on above: Performed By: #### L 501.9985, L100.0100, L500.4050 ####[facility] [address] [place], [place], [address] GFR/1.73 sq M.predicted among non-blacks MDRD (S/P/Bld) [Vol rate/Area] 110 mL/min/{1.73_m2} Normal >60 [facility] Comment on above: Result Comment: mL/m in/1.73m2 CKD-EPI Creatinine Equation (2020) Performed By: #### L 501.9985, L100.0100, L500.4050 ####[facility] [address] [place], [address] Globulin (S) [Mass/Vol] 2.9 g/dL Normal 2.2-4.2 [facility] Comment on above: Performed By: #### L 501.9985, L100.0100, L500.4050 ####[facility] [address] [place], [address] Glucose [Mass/Vol] 144 mg/dL High 70-99 [facility] Comment on above: Performed By: #### L 501.9985, L100.0100, L500.4050 ####[facility] [address] [place], [address] Potassium [Moles/Vol] 3.7 mmol/L Normal 3.3-5.1 [facility] Comment on above: Performed By: #### L 501.9985, L100.0100, L500.4050 ####[facility] [address] [place], [address] Sodium [Moles/Vol] 141 mmol/L Normal 133-145 [facility] Comment on above: Performed By: #### L 501.9985, L100.0100, L500.4050 ####[facility] [address] [place], [address] T PROT 5.8 g/dL Low 5.9-8.4 [facility] Comment on above: Performed By: #### L 501.9985, L100.0100, L500.4050 ####[facility] [address] [place], [address] Urea nitrogen [Mass/Vol] 9 mg/dL Normal 4-19 [facility] Comment on above: Performed By: #### L 501.9985, L100.0100, L500.4050 ####[facility] [address] [place], [address] Hemoglobin A1con 07-30-2024 HbA1c (Bld) [Mass fraction] 7.1 % High <=5.6 [facility] Comment on above: Result Comment: Norm al < 5.7 % Prediabetic 5.7 - 6.4 % Diabetic >or= 6.5 % Please note range changes. Performed By: #### L 501.9985, L100.0100, L500.4050 ####[facility] [address] [place], [address] Hemoglobin A1c percentageOrd ered By: Isha Zurita on 07-30-2024 HbA1c (Bld) [Mass fraction] 7.1 % High <5.7 [facility] Comment on above: Normal < 5.7 % Predi abetic 5.7 - 6.4 % Diabetic >or= 6.5 % Please note range changes. Laboratory - Chemistry and C hemistry - challengeOrdered By: Isha Zurita on 07-30-2024 AST [Catalytic activity/Vol] 14 U/L <38 [facility] Lactic Acidon 07-30-2024 Lactate [Moles/Vol] 1.7 mmol/L Normal 0.0-2.0 [facility] Comment on above: Performed By: #### L 503.6005 ####[facility] [address] [place], [address] Lactic acid measurementOrder ed By: Andre Ferreira on 07-30-2024 Lactate [Moles/Vol] 1.7 mmol/L 0.0-2.0 [facility] Manual differential comment Dmitriy (Bld) [Interp]Ordered By: Isha Zurita on 07-30-2024 Differential Comment SCANNED [facility] Comment on above: SLIGHT MONOCYTOSIS N OTED No Panel InformationOrdered By: Isha Zurita on 07-30-2024 14 U/L <38 [facility] Serum globulin measurementOr dered By: Isha Zurita on 07-30-2024 Globulin (S) [Mass/Vol] 2.9 g/dL 2.2-4.2 [facility] Serum or plasma alanine orozco otransferase (ALT) measurementOrdered By: Isha Zurita on 07-30-2024 ALT [Catalytic activity/Vol] 16 U/L <47 [facility] Serum or plasma albumin marlyn urement (mass/volume)Ordered By: Isha Zurita on 07-30-2024 Albumin [Mass/Vol] 3.0 g/dL Low 3.4-4.8 [facility] Serum or plasma albumin/glob ulin mass ratioOrdered By: Isha Zurita on 07-30-2024 Albumin/Globulin [Mass ratio] 1.0 {ratio} 0.9-2.4 [facility] Serum or plasma alkaline marisol sphatase measurementOrdered By: Isha Zurita on 07-30-2024 ALP [Catalytic activity/Vol] 95 U/L 40-129 [facility] Total proteinOrdered By: Aut nehemias Zurita on 07-30-2024 Protein [Mass/Vol] 5.8 g/dL Low 5.9-8.4 [facility] 12 Lead EKGon 07-29-2024 12 Lead EKG Normal [facility] 36on 07-29-2024 36 S: Patient's spouse spoke with [facility] nurse regarding test results for spouse from 07/04/2024 B: Onset of symptoms/concern 07/04/2024 A: Patient had blood work completed on 07/04/2024 and has not received the results. Tests completed include: PSA total, T3 Free, T4 Free, TSH, Lipid Panel, Direct LDL, Complete Blood Count, Comprehensive Metabolic. Nurse reviewed the message from Dr. Zimmerman on 07/22/2024 addressing: TG is over 300, [...] result.) Protocols used: [facility] Activated partial thrombopla stin time (aPTT) in platelet poor plasma by coagulation aOrdered By: Andre Ferreira on 07-29-2024 aPTT Coag (PPP) [Time] 30.0 s 24.1-36.2 [facility] Bilirubin Test strip Ql (U)O rdered By: Andre Ferreira on 07-29-2024 Bilirubin Ql (U) Negative Negative [facility] Blood cultureOrdered By: Adama Ferreira on 07-29-2024 Bacteria identified Cx Nom (Bld) No growth in 5 days. [facility] Bacteria identified Cx Nom (Bld) No growth in 5 days. [facility] CBC W/Diff, Automatedon Absolute Lymph 1.10 X10 3/uL Normal 0.83-4.51 [facility] Comment on above: Performed By: #### M 200.1000, L100.0100, L300.4310, L300.3900, L503.6005, L500.4050 ####[facility] [address] [place], [address] Absolute Neut 17.3 X10 3/uL High 2.0-7.7 [facility] Comment on above: Performed By: #### M 200.1000, L100.0100, L300.4310, L300.3900, L503.6005, L500.4050 ####[facility] [address] [place], [address] Basophils/100 WBC (Bld) 0.3 % Normal 0-1 [facility] Comment on above: Performed By: #### M 200.1000, L100.0100, L300.4310, L300.3900, L503.6005, L500.4050 ####[facility] [address] [place], [address] Eosinophils/100 WBC (Bld) 0.4 % Normal 0-5 [facility] Comment on above: Performed By: #### M 200.1000, L100.0100, L300.4310, L300.3900, L503.6005, L500.4050 ####[facility] [address] [place], [address] Erythrocyte distribution width (RBC) [Ratio] 17.1 % High 11.6-14.6 [facility] Comment on above: Performed By: #### M 200.1000, L100.0100, L300.4310, L300.3900, L503.6005, L500.4050 ####[facility] [address] [place], [address] Hematocrit (Bld) [Volume fraction] 39.6 % Low 40-54 [facility] Comment on above: Performed By: #### M 200.1000, L100.0100, L300.4310, L300.3900, L503.6005, L500.4050 ####[facility] [address] [place], [address] Hemoglobin (Bld) [Mass/Vol] 13.0 g/dL Normal 13.0-16.5 [facility] Comment on above: Performed By: #### M 200.1000, L100.0100, L300.4310, L300.3900, L503.6005, L500.4050 ####[facility] [address] [place], [address] IG% 0.900 Normal 0.0-0.9 [facility] Comment on above: Result Comment: IG% - Immature Granulocytes (promyelocytes, myelocytes andmetamyelocytes) > 1% indicates that a LEFT SHIFT is Present. Performed By: #### M 200.1000, L100.0100, L300.4310, L300.3900, L503.6005, L500.4050 ####[facility] [address] [place], [address] Lymphocytes/100 WBC (Bld) 5.5 % Low 19-41 [facility] Comment on above: Performed By: #### M 200.1000, L100.0100, L300.4310, L300.3900, L503.6005, L500.4050 ####[facility] [address] [place], [address] MCH (RBC) [Entitic mass] 29.1 pg Normal 27.0-32.0 [facility] Comment on above: Performed By: #### M 200.1000, L100.0100, L300.4310, L300.3900, L503.6005, L500.4050 ####[facility] [address] [place], [address] MCHC (RBC) [Mass/Vol] 32.8 g/dL Normal 32-36 [facility] Comment on above: Performed By: #### M 200.1000, L100.0100, L300.4310, L300.3900, L503.6005, L500.4050 ####[facility] [address] [place], [address] MCV (RBC) [Entitic vol] 88.6 fL Normal 80-94 [facility] Comment on above: Performed By: #### M 200.1000, L100.0100, L300.4310, L300.3900, L503.6005, L500.4050 ####[facility] [address] [place], [address] Monocytes/100 WBC (Bld) 6.2 % Normal 0-10 [facility] Comment on above: Performed By: #### M 200.1000, L100.0100, L300.4310, L300.3900, L503.6005, L500.4050 ####[facility] [address] [place], [address] Neutrophils/100 WBC (Bld) 86.7 % High 47-70 [facility] Comment on above: Performed By: #### M 200.1000, L100.0100, L300.4310, L300.3900, L503.6005, L500.4050 ####[facility] [address] [place], [address] Nucleated RBC (Bld) [#/Vol] 0 10*3/uL Normal 0-5 [facility] Comment on above: Performed By: #### M 200.1000, L100.0100, L300.4310, L300.3900, L503.6005, L500.4050 ####[facility] [address] [place], [address] Platelet mean volume (Bld) [Entitic vol] 9.8 fL Normal 6.2-12.0 [facility] Comment on above: Performed By: #### M 200.1000, L100.0100, L300.4310, L300.3900, L503.6005, L500.4050 ####[facility] [address] [place], [address] Platelets (Bld) [#/Vol] 309 10*3/uL Normal 150-450 [facility] Comment on above: Performed By: #### M 200.1000, L100.0100, L300.4310, L300.3900, L503.6005, L500.4050 ####[facility] [address] [place], [address] RBC (Bld) [#/Vol] 4.47 10*6/uL Low 4.6-6.2 [facility] Comment on above: Performed By: #### M 200.1000, L100.0100, L300.4310, L300.3900, L503.6005, L500.4050 ####[facility] [address] [place], [address] RDW SD 55.2 fl High 35.1-43.9 [facility] Comment on above: Performed By: #### M 200.1000, L100.0100, L300.4310, L300.3900, L503.6005, L500.4050 ####[facility] [address] [place], [address] WBC (Bld) [#/Vol] 19.9 10*3/uL High 4.4-11.0 [facility] Comment on above: Performed By: #### M 200.1000, L100.0100, L300.4310, L300.3900, L503.6005, L500.4050 ####[facility] [address] [place], [address] Chest PA and Lateralon 07-29 Chest PA and Lateral Normal [facility] Comprehensive Metabolic Prof ilon 07-29-2024 Albumin [Mass/Vol] 3.4 g/dL Normal 3.4-4.8 [facility] Comment on above: Performed By: #### M 200.1000, L100.0100, L300.4310, L300.3900, L503.6005, L500.4050 ####[facility] [address] [place], [address] Albumin/Globulin [Mass ratio] 0.8 {ratio} Low 0.9-2.4 [facility] Comment on above: Performed By: #### M 200.1000, L100.0100, L300.4310, L300.3900, L503.6005, L500.4050 ####[facility] [address] [place], [address] ALK PHOS 119 U/L Normal 40-129 [facility] Comment on above: Performed By: #### M 200.1000, L100.0100, L300.4310, L300.3900, L503.6005, L500.4050 ####[facility] [address] [place], [address] ALT [Catalytic activity/Vol] 20 U/L Normal <=46 [facility] Comment on above: Performed By: #### M 200.1000, L100.0100, L300.4310, L300.3900, L503.6005, L500.4050 ####[facility] [address] [place], [address] AST [Catalytic activity/Vol] 15 U/L Normal <=37 [facility] Comment on above: Performed By: #### M 200.1000, L100.0100, L300.4310, L300.3900, L503.6005, L500.4050 ####[facility] [address] [place], [address] Bilirubin [Mass/Vol] 0.24 mg/dL Normal 0.00-1.30 [facility] Comment on above: Performed By: #### M 200.1000, L100.0100, L300.4310, L300.3900, L503.6005, L500.4050 ####[facility] [address] [place], [address] BUN/CRE 14.8 RATIO Normal 10-20 [facility] Comment on above: Performed By: #### M 200.1000, L100.0100, L300.4310, L300.3900, L503.6005, L500.4050 ####[facility] [address] [place], [address] Calcium [Mass/Vol] 9.2 mg/dL Normal 7.6-11.0 [facility] Comment on above: Performed By: #### M 200.1000, L100.0100, L300.4310, L300.3900, L503.6005, L500.4050 ####[facility] [address] [place], [address] Chloride [Moles/Vol] 104 mmol/L Normal 98-108 [facility] Comment on above: Performed By: #### M 200.1000, L100.0100, L300.4310, L300.3900, L503.6005, L500.4050 ####[facility] [address] [place], [address] CO2 [Moles/Vol] 22.9 mmol/L Normal 21.0-32.0 [facility] Comment on above: Performed By: #### M 200.1000, L100.0100, L300.4310, L300.3900, L503.6005, L500.4050 ####[facility] [address] [place], [address] Creatinine [Mass/Vol] 0.83 mg/dL Normal 0.70-1.20 [facility] Comment on above: Performed By: #### M 200.1000, L100.0100, L300.4310, L300.3900, L503.6005, L500.4050 ####[facility] [address] [place], [address] ECRCL 95.77 ml/min Normal 50-250 [facility] Comment on above: Performed By: #### M 200.1000, L100.0100, L300.4310, L300.3900, L503.6005, L500.4050 ####[facility] [address] [place], [address] GAP 13 Normal 5-15 [facility] Comment on above: Performed By: #### M 200.1000, L100.0100, L300.4310, L300.3900, L503.6005, L500.4050 ####[facility] [address] [place], [address] GFR/1.73 sq M.predicted among non-blacks MDRD (S/P/Bld) [Vol rate/Area] 96 mL/min/{1.73_m2} Normal >60 [facility] Comment on above: Result Comment: mL/m in/1.73m2 CKD-EPI Creatinine Equation (2020) Performed By: #### M 200.1000, L100.0100, L300.4310, L300.3900, L503.6005, L500.4050 ####[facility] [address] [place], [address] Globulin (S) [Mass/Vol] 4.3 g/dL High 2.2-4.2 [facility] Comment on above: Performed By: #### M 200.1000, L100.0100, L300.4310, L300.3900, L503.6005, L500.4050 ####[facility] [address] [place], [address] Glucose [Mass/Vol] 183 mg/dL High 70-99 [facility] Comment on above: Performed By: #### M 200.1000, L100.0100, L300.4310, L300.3900, L503.6005, L500.4050 ####[facility] [address] [place], [address] Potassium [Moles/Vol] 3.8 mmol/L Normal 3.3-5.1 [facility] Comment on above: Performed By: #### M 200.1000, L100.0100, L300.4310, L300.3900, L503.6005, L500.4050 ####[facility] [address] [place], [address] Sodium [Moles/Vol] 140 mmol/L Normal 133-145 [facility] Comment on above: Performed By: #### M 200.1000, L100.0100, L300.4310, L300.3900, L503.6005, L500.4050 ####[facility] [address] [place], [address] T PROT 7.8 g/dL Normal 5.9-8.4 [facility] Comment on above: Performed By: #### M 200.1000, L100.0100, L300.4310, L300.3900, L503.6005, L500.4050 ####[facility] [address] [place], [address] Urea nitrogen [Mass/Vol] 12 mg/dL Normal 4-19 [facility] Comment on above: Performed By: #### M 200.1000, L100.0100, L300.4310, L300.3900, L503.6005, L500.4050 ####[facility] [address] [place], [address] Emergency Department Summary on 07-29-2024 Emergency Department Summary Normal [facility] Epithelial cells.squamous LM Ql (Urine sed)Ordered By: Andre Ferreira on 07-29-2024 Epithelial cells.squamous LM.HPF (Urine sed) [#/Area] 0 /[HPF] 0-5 [facility] Glucose Ql (U)Ordered By: Emeka Ferreira on 07-29-2024 Glucose (U) [Mass/Vol] 250 mg/dL High Normal [facility] H AND P Exam - Hospitaliston 07-29-2024 H&P Exam - Hospitalist Normal [facility] Influenza virus A and B and SARS-CoV-2 (COVID-19) and Respiratory syncytial virus RNAOrdered By: Andre Ferreira on 07-29-2024 SARS-CoV-2 (COVID-19) RNA IMER+probe Ql (Unsp spec) [facility] International normalized rat io (INR) calculationOrdered By: Andre Ferreira on 07-29-2024 INR Coag (Bld) [Relative time] 1.0 {INR} [facility] Ketones Test strip Ql (U)Ord ered By: Andre Ferreira on 07-29-2024 Ketones Ql (U) 5 mg/dl High Negative [facility] Lactic Acidon 07-29-2024 Lactate [Moles/Vol] 3.0 mmol/L Invalid Interpretation Code 0.0-2.0 [facility] Comment on above: Order Comment: Y Result Comment: Crit ical Result(s) Called DTENNANT at: 2110 by:VILMA??Results read back by same. Performed By: #### M 200.1000, L100.0100, L300.4310, L300.3900, L503.6005, L500.4050 ####[facility] [address] [facility] [place], [place], [address] M100.678on 07-29-2024 M100.678 Pending SARS-CoV-2 (COVID 19) Negative INFLUENZA A Negative INFLUENZA B Negative RSV PCR Negative Normal [facility] Comment on above: Performed By: #### M 100.678 ####[facility] [address] [facility] [facility] [place], [place], [address] Microscopic analysis of urin e for red blood cells (RBC)Ordered By: Andre Ferreira on 07-29-2024 Microscopic analysis of urine for red blood cells (RBC) 10-25 SEEN /hpf 0-5 [facility] Urine RBC 10-25 SEEN /hpf 0-5 [facility] Mucus LM Ql (Urine sed)Order ed By: Andre Ferreira on 07-29-2024 Mucus Ql (Urine sed) 0 SEEN /hpf [facility] Nitrite Test strip Ql (U)Ord ered By: Andre Ferreira on 07-29-2024 Nitrite Ql (U) Positive High Negative [facility] Partial Thromboplast Timeon 07-29-2024 aPTT Coag (Bld) [Time] 30.0 s Normal 24.1-36.2 [facility] Comment on above: Performed By: #### M 200.1000, L100.0100, L300.4310, L300.3900, L503.6005, L500.4050 ####[facility] [address] [place], [address] Protein Test strip Ql (U)Ord ered By: Andre Ferreira on 07-29-2024 Protein Ql (U) 100 mg/dl High Negative [facility] Prothrombin Time w/INRon INR Coag (PPP) [Relative time] 1.0 {INR} Normal [facility] Comment on above: Performed By: #### M 200.1000, L100.0100, L300.4310, L300.3900, L503.6005, L500.4050 ####[facility] [address] [place], [address] PT Coag (PPP) [Time] 13.7 s Normal 11.7-14.9 [facility] Comment on above: Performed By: #### M 200.1000, L100.0100, L300.4310, L300.3900, L503.6005, L500.4050 ####[facility] [address] [place], [address] Prothrombin timeOrdered By: Andre Ferreira on 07-29-2024 PT Coag (PPP) [Time] 13.7 s 11.7-14.9 [facility] Squamous epithelial cells de tection in urine sediment by light microscopyOrdered By: Andre Ferreira on 07-29-2024 Epithelial cells.squamous LM Ql (Urine sed) 0-5 SEEN /hpf 0-5 [facility] Urinalysis, Completeon 07-29 EPI,SQUAMOUS 0-5 SEEN Normal 0-5 [facility] Comment on above: Order Comment: COLLE CTOR TO SPECIFY Performed By: #### L 400.0001, M100.2200 ####[facility] [address] [place], [address] BACTERIA 3+ /hpf Normal None Seen [facility] Comment on above: Order Comment: LACIE CTOR TO SPECIFY Performed By: #### L 400.0001, M100.2200 ####[facility] [address] [place], [address] RBC 10-25 SEEN Normal 0-5 [facility] Comment on above: Order Comment: LACIE CTOR TO SPECIFY Performed By: #### L 400.0001, M100.2200 ####[facility] [address] [place], [address] WBC >100 SEEN Normal 0-5 [facility] Comment on above: Order Comment: LACIE CTOR TO SPECIFY Performed By: #### L 400.0001, M100.2200 ####[facility] [address] [place], [address] Mucus Ql (Urine sed) 0 SEEN Normal [facility] Comment on above: Order Comment: LACIE CTOR TO SPECIFY Performed By: #### L 400.0001, M100.2200 ####[facility] [address] [place], [address] Urine blood detectionOrdered By: Andre Ferreira on 07-29-2024 Urine Occult Blood 250 /ul High Negative [facility] Urine clarityOrdered By: Adama Ferreira on 07-29-2024 Clarity (U) Turbid Clear [facility] Urine color determinationOrd ered By: Andre Ferreira on 07-29-2024 Color (U) Yellow Yellow [facility] Urine cultureOrdered By: Adama Ferreira on 07-29-2024 Bacteria identified Cx Nom (U) Klebsiella oxytoca Abnormal [facility] Bacteria identified Cx Nom (U) Citrobacter freundii Abnormal [facility] Bacteria identified Cx Nom (U) Staphylococcus aureus Abnormal [facility] Urine glucose detectionOrder ed By: Andre Ferreira on 07-29-2024 Glucose Ql (U) 250 mg/dl High Normal [facility] Urine leukocyte esterase det ection by dipstickOrdered By: Andre Ferreira on 07-29-2024 Leukocyte esterase Test strip Ql (U) 500 /ul High Negative [facility] Urine pHOrdered By: Andre tyson on 07-29-2024 pH (U) 6.0 [pH] 5.0 - 8.0 [facility] Urine sediment bacteria coun t by microscopy (number/high power field)Ordered By: Andre Ferreira on 07-29-2024 Bacteria LM.HPF (Urine sed) [#/Area] 3 /[HPF] None Seen [facility] Urine specific gravity measu rementOrdered By: Andre Ferreira on 07-29-2024 Specific gravity (U) [Rel density] 1.015 1.002-1.030 [facility] Urine urobilinogen measureme ntOrdered By: Andre Ferreira on 07-29-2024 Urobilinogen Ql (U) Normal mg/dl Normal [facility] Urobilinogen Ql (U)Ordered B y: Andre Ferreira on 07-29-2024 Urine Urobilinogen Normal mg/dl Normal [facility] White blood cell countOrdere d By: Andre Ferreira on 07-29-2024 Urine WBC >100 SEEN /hpf 0-5 [facility] White blood cell count >100 SEEN /hpf 0-5 [facility] aPTT Coag (PPP) [Time]Ordere d By: Andre Ferreira on 07-29-2024 aPTT Coag (Bld) [Time] 30.0 s 24.1-36.2 [facility] LDL, Directon 07-13-2024 Cholesterol in LDL [Mass/Vol] 114 mg/dL High 0-99 [facility] Comment on above: Result Comment: Perf ormed at: - [facility] [address] [id number] Director: Rayo Wilkinson PhD, Phone: [phone] Performed By: #### L 280.38285, L500.4100, L500.4050, L506.0400, L3300.4490, L100.0100, L501.9520, L501.9910 ####[facility] [address] [place], [place], [address] COMMENT TNP Normal . [facility] Comment on above: Performed By: #### L 501.40997, L500.4100, L500.4050, L506.0400, L3300.4490, L100.0100, L501.9520, L501.9910 ####[facility] [address] [facility] [address] [place], [place], [id number] Absolute lymphocyte countOrd ered By: Brian Zimmerman on 07-11-2024 Lymphocytes Auto (Unsp spec) [#/Vol] 2.11 10*3/uL 0.83-4.51 [facility] Absolute neutrophil countOrd ered By: Brian Zimmerman on 07-11-2024 Neutrophils (Bld) [#/Vol] 5.4 10*3/uL 2.0-7.7 [facility] Anion gap in Serum or Plasma Ordered By: Brian Zimmerman on 07-11-2024 Anion gap [Moles/Vol] 13 mmol/L 5- [facility] Automated lymphocyte count a s percentage of total leukocytesOrdered By: Brian Zimmerman on 07-11-2024 Lymphocytes/100 WBC Auto (Unsp spec) 23.9 % - [facility] BUN/creatinine ratioOrdered By: Brian Zimmerman on 07-11-2024 Urea nitrogen/Creatinine [Mass ratio] 15.1 mg/mg 10- [facility] Basophil percentageOrdered B y: Brian Zimmerman on 07-11-2024 Basophils/100 WBC (Bld) 0.8 % 0- W [facility] Bilirubin, totalOrdered By: Brian Zimmerman on 07-11-2024 Bilirubin [Mass/Vol] 0.22 mg/dL 0.00-1.30 [facility] CBC W/Diff, Automatedon 06-28 Absolute Lymph 2.11 X10 3/uL Normal 0.83-4.51 [facility] Comment on above: Performed By: #### L [id number], L500.4100, L500.4050, L506.0400, L3300.4490, L100.0100, L501.9520, L501.9910 ####[facility] [address] [place], [address] Absolute Neut 5.4 X10 3/uL Normal 2.0-7.7 [facility] Comment on above: Performed By: #### L [id number], L500.4100, L500.4050, L506.0400, L3300.4490, L100.0100, L501.9520, L501.9910 ####[facility] [address] [place], [address] Basophils/100 WBC (Bld) 0.8 % Normal 0-1 [facility] Comment on above: Performed By: #### L [id number], L500.4100, L500.4050, L506.0400, L3300.4490, L100.0100, L501.9520, L501.9910 ####[facility] [address] [place], [address] Eosinophils/100 WBC (Bld) 3.7 % Normal 0-5 [facility] Comment on above: Performed By: #### L [id number], L500.4100, L500.4050, L506.0400, L3300.4490, L100.0100, L501.9520, L501.9910 ####[facility] [address] [place], [address] Erythrocyte distribution width (RBC) [Ratio] 16.9 % High 11.6-14.6 [facility] Comment on above: Performed By: #### L 501.02551, L500.4100, L500.4050, L506.0400, L3300.4490, L100.0100, L501.9520, L501.9910 ####[facility] [address] [place], [address] Hematocrit (Bld) [Volume fraction] 42.1 % Normal 40-54 [facility] Comment on above: Performed By: #### L 501.72299, L500.4100, L500.4050, L506.0400, L3300.4490, L100.0100, L501.9520, L501.9910 ####[facility] [address] [place], [address] Hemoglobin (Bld) [Mass/Vol] 13.6 g/dL Normal 13.0-16.5 [facility] Comment on above: Performed By: #### L 501.84746, L500.4100, L500.4050, L506.0400, L3300.4490, L100.0100, L501.9520, L501.9910 ####[facility] [address] [place], [address] IG% 0.800 Normal 0.0-0.9 [facility] Comment on above: Result Comment: IG% - Immature Granulocytes (promyelocytes, myelocytes andmetamyelocytes) > 1% indicates that a LEFT SHIFT is Present. Performed By: #### L 501.08498, L500.4100, L500.4050, L506.0400, L3300.4490, L100.0100, L501.9520, L501.9910 ####[facility] [address] [place], [address] Lymphocytes/100 WBC (Bld) 23.9 % Normal 19-41 [facility] Comment on above: Performed By: #### L 501.68177, L500.4100, L500.4050, L506.0400, L3300.4490, L100.0100, L501.9520, L501.9910 ####[facility] [address] [place], [address] MCH (RBC) [Entitic mass] 28.9 pg Normal 27.0-32.0 [facility] Comment on above: Performed By: #### L 501.41197, L500.4100, L500.4050, L506.0400, L3300.4490, L100.0100, L501.9520, L501.9910 ####[facility] [address] [place], [address] MCHC (RBC) [Mass/Vol] 32.3 g/dL Normal 32-36 [facility] Comment on above: Performed By: #### L 501.38820, L500.4100, L500.4050, L506.0400, L3300.4490, L100.0100, L501.9520, L501.9910 ####[facility] [address] [place], [address] MCV (RBC) [Entitic vol] 89.4 fL Normal 80-94 [facility] Comment on above: Performed By: #### L 501.41361, L500.4100, L500.4050, L506.0400, L3300.4490, L100.0100, L501.9520, L501.9910 ####[facility] [address] [place], [address] Monocytes/100 WBC (Bld) 10.2 % High 0-10 [facility] Comment on above: Performed By: #### L 501.09815, L500.4100, L500.4050, L506.0400, L3300.4490, L100.0100, L501.9520, L501.9910 ####[facility] [address] [place], [address] Neutrophils/100 WBC (Bld) 60.6 % Normal 47-70 [facility] Comment on above: Performed By: #### L 501.51773, L500.4100, L500.4050, L506.0400, L3300.4490, L100.0100, L501.9520, L501.9910 ####[facility] [address] [place], [address] Nucleated RBC (Bld) [#/Vol] 0 10*3/uL Normal 0-5 [facility] Comment on above: Performed By: #### L 501.62251, L500.4100, L500.4050, L506.0400, L3300.4490, L100.0100, L501.9520, L501.9910 ####[facility] [address] [place], [address] Platelet mean volume (Bld) [Entitic vol] 9.4 fL Normal 6.2-12.0 [facility] Comment on above: Performed By: #### L 501.65484, L500.4100, L500.4050, L506.0400, L3300.4490, L100.0100, L501.9520, L501.9910 ####[facility] [address] [place], [address] Platelets (Bld) [#/Vol] 275 10*3/uL Normal 150-450 [facility] Comment on above: Performed By: #### L 501.91216, L500.4100, L500.4050, L506.0400, L3300.4490, L100.0100, L501.9520, L501.9910 ####[facility] [address] [place], [address] RBC (Bld) [#/Vol] 4.71 10*6/uL Normal 4.6-6.2 [facility] Comment on above: Performed By: #### L 501.03749, L500.4100, L500.4050, L506.0400, L3300.4490, L100.0100, L501.9520, L501.9910 ####[facility] [address] [place], [address] RDW SD 55.3 fl High 35.1-43.9 [facility] Comment on above: Performed By: #### L 501.32976, L500.4100, L500.4050, L506.0400, L3300.4490, L100.0100, L501.9520, L501.9910 ####[facility] [address] [facility] [place], [place], [id number] WBC (Bld) [#/Vol] 8.8 10*3/uL Normal 4.4-11.0 [facility] Comment on above: Performed By: #### L 501.75253, L500.4100, L500.4050, L506.0400, L3300.4490, L100.0100, L501.9520, L501.9910 ####[facility] [address] [facility] [place], [place], [id number] Calculated very low density lipoprotein (VLDL) cholesterol measurementOrdered By: Brian Zimmerman on 07-11-2024 Calculated very low density lipoprotein (VLDL) cholesterol measurement 64 mg/dL High 5-40 [facility] VLDL Cholesterol 64 mg/dL High 5-40 [facility] Carbon dioxide, total [Moles /volume] in Central venous bloodOrdered By: Brian Zimmerman on 07-11-2024 CO2 [Moles/Vol] 21.6 mmol/L 21.0-32.0 [facility] Chloride assayOrdered By: Dav Zimmerman on 07-11-2024 Chloride [Moles/Vol] 105 mmol/L 98-108 [facility] Cholesterol in LDL Direct as say [Mass/Vol]Ordered By: Brian Zimmerman on 07-11-2024 Cholesterol in LDL [Mass/Vol] 114 mg/dL High 0-99 [facility] Comment on above: Performed at: [facility] [address] [id number] Director: Rayo Wilkinson PhD, Phone: [phone] LDL Cholesterol Direct 114 mg/dL High 0-99 [facility] Comment on above: Performed at: [facility] [address] [id number] Director: Rayo Wilkinson PhD, Phone: [phone] Comprehensive Metabolic Prof nisreen 07-11-2024 Albumin [Mass/Vol] 3.7 g/dL Normal 3.4-4.8 [facility] Comment on above: Performed By: #### L 501.55068, L500.4100, L500.4050, L506.0400, L3300.4490, L100.0100, L501.9520, L501.9910 ####[facility] [address] [place], [place], [id number] Albumin/Globulin [Mass ratio] 1.1 {ratio} Normal 0.9-2.4 [facility] Comment on above: Performed By: #### L 501.65096, L500.4100, L500.4050, L506.0400, L3300.4490, L100.0100, L501.9520, L501.9910 ####[facility] [address] [place], [place], [id number] ALK PHOS 114 U/L Normal 40-129 [facility] Comment on above: Performed By: #### L 501.06760, L500.4100, L500.4050, L506.0400, L3300.4490, L100.0100, L501.9520, L501.9910 ####[facility] [address] [place], [place], [id number] ALT [Catalytic activity/Vol] 36 U/L Normal <=46 [facility] Comment on above: Performed By: #### L 501.80948, L500.4100, L500.4050, L506.0400, L3300.4490, L100.0100, L501.9520, L501.9910 ####[facility] [address] [place], [place], [id number] AST [Catalytic activity/Vol] 32 U/L Normal <=37 [facility] Comment on above: Performed By: #### L 501.70983, L500.4100, L500.4050, L506.0400, L3300.4490, L100.0100, L501.9520, L501.9910 ####[facility] [address] [place], [address] Bilirubin [Mass/Vol] 0.22 mg/dL Normal 0.00-1.30 [facility] Comment on above: Performed By: #### L 501.80736, L500.4100, L500.4050, L506.0400, L3300.4490, L100.0100, L501.9520, L501.9910 ####[facility] [address] [place], [address] BUN/CRE 15.1 RATIO Normal 10-20 [facility] Comment on above: Performed By: #### L 501.63309, L500.4100, L500.4050, L506.0400, L3300.4490, L100.0100, L501.9520, L501.9910 ####[facility] [address] [place], [address] Calcium [Mass/Vol] 9.2 mg/dL Normal 7.6-11.0 [facility] Comment on above: Performed By: #### L 501.87856, L500.4100, L500.4050, L506.0400, L3300.4490, L100.0100, L501.9520, L501.9910 ####[facility] [address] [place], [address] Chloride [Moles/Vol] 105 mmol/L Normal 98-108 [facility] Comment on above: Performed By: #### L 501.17905, L500.4100, L500.4050, L506.0400, L3300.4490, L100.0100, L501.9520, L501.9910 ####[facility] [address] [place], [address] CO2 [Moles/Vol] 21.6 mmol/L Normal 21.0-32.0 [facility] Comment on above: Performed By: #### L 501.31887, L500.4100, L500.4050, L506.0400, L3300.4490, L100.0100, L501.9520, L501.9910 ####[facility] [address] [place], [address] Creatinine [Mass/Vol] 0.64 mg/dL Low 0.70-1.20 [facility] Comment on above: Performed By: #### L 501.14875, L500.4100, L500.4050, L506.0400, L3300.4490, L100.0100, L501.9520, L501.9910 ####[facility] [address] [place], [address] GAP 13 Normal 5-15 [facility] Comment on above: Performed By: #### L 501.95883, L500.4100, L500.4050, L506.0400, L3300.4490, L100.0100, L501.9520, L501.9910 ####[facility] [address] [place], [address] GFR/1.73 sq M.predicted among non-blacks MDRD (S/P/Bld) [Vol rate/Area] 104 mL/min/{1.73_m2} Normal >60 [facility] Comment on above: Result Comment: mL/m in/1.73m2 CKD-EPI Creatinine Equation (2020) Performed By: #### L 501.93979, L500.4100, L500.4050, L506.0400, L3300.4490, L100.0100, L501.9520, L501.9910 ####[facility] [address] [place], [address] Globulin (S) [Mass/Vol] 3.5 g/dL Normal 2.2-4.2 [facility] Comment on above: Performed By: #### L 501.24799, L500.4100, L500.4050, L506.0400, L3300.4490, L100.0100, L501.9520, L501.9910 ####[facility] [address] [place], [address] Glucose [Mass/Vol] 91 mg/dL Normal 70-99 [facility] Comment on above: Performed By: #### L 501.09508, L500.4100, L500.4050, L506.0400, L3300.4490, L100.0100, L501.9520, L501.9910 ####[facility] [address] [place], [address] Potassium [Moles/Vol] 4.2 mmol/L Normal 3.3-5.1 [facility] Comment on above: Performed By: #### L 501.07899, L500.4100, L500.4050, L506.0400, L3300.4490, L100.0100, L501.9520, L501.9910 ####[facility] [address] [place], [address] Sodium [Moles/Vol] 139 mmol/L Normal 133-145 [facility] Comment on above: Performed By: #### L 501.75068, L500.4100, L500.4050, L506.0400, L3300.4490, L100.0100, L501.9520, L501.9910 ####[facility] [address] [place], [address] T PROT 7.2 g/dL Normal 5.9-8.4 [facility] Comment on above: Performed By: #### L 501.39272, L500.4100, L500.4050, L506.0400, L3300.4490, L100.0100, L501.9520, L501.9910 ####[facility] [address] [place], [place], [phone] Urea nitrogen [Mass/Vol] 10 mg/dL Normal 4-19 [facility] Comment on above: Performed By: #### L 501.11783, L500.4100, L500.4050, L506.0400, L3300.4490, L100.0100, L501.9520, L501.9910 ####[facility] [address] [place], [place], [phone] Eosinophil percentageOrdered By: Brian Zimmerman on 07-11-2024 Eosinophils/100 WBC (Bld) 3.7 % 0-5 [facility] Erythrocyte distribution wid th (RBC) [Ratio]Ordered By: Brian Zimmerman on 07-11-2024 Erythrocyte distribution width (RBC) [Entitic vol] 55.3 fL High 35.1-43.9 [facility] Erythrocyte distribution wid th ratioOrdered By: Brian Zimmerman on 07-11-2024 Erythrocyte distribution width (RBC) [Ratio] 16.9 % High 11.6-14.6 [facility] Erythrocyte distribution wid th standard deviationOrdered By: Brian Zimmerman on 07-11-2024 Erythrocyte distribution width (RBC) [Ratio] 55.3 fl High 35.1-43.9 [facility] Free T3on 07-11-2024 Free T3 [Mass/Vol] 2.0 pg/mL Low 2.18-3.98 [facility] Comment on above: Performed By: #### L 501.30262, L500.4100, L500.4050, L506.0400, L3300.4490, L100.0100, L501.9520, L501.9910 ####[facility] [address] [place], [address] Free U4Xjjfkue By: Brian bar on 07-11-2024 Free T3 [Mass/Vol] 2.0 pg/mL Low 2.18-3.98 [facility] Free Triiodothyronine (T3) pg/dL 2.0 pg/mL Low 2.18-3.98 [facility] GFR/1.73 sq M.predicted elias g non-blacks MDRD (S/P/Bld) [Vol rate/Area]Ordered By: Brian Zimmerman on 07-11-2024 Estimated GFR (MDRD) Non-Af Amer 104 >60 [facility] Comment on above: mL/min/1.73m2 CKD-EP I Creatinine Equation (2020) Glomerular filtration rate ( GFR) estimation/1.73 sq m using serum, plasma, or whole bOrdered By: Brian Zimmerman on 07-11-2024 GFR/1.73 sq M.predicted among non-blacks MDRD (S/P/Bld) [Vol rate/Area] 104 mL/min/{1.73_m2} >60 [facility] Comment on above: mL/min/1.73m2 CKD-EP I Creatinine Equation (2020) Hematocrit Auto (Bld) [Volum e fraction]Ordered By: Brian Zimmerman on 07-11-2024 Hematocrit (Bld) [Volume fraction] 42.1 % 40-54 [facility] Hemoglobin measurementOrdere d By: Brian Zimmerman on 07-11-2024 Hemoglobin (Bld) [Mass/Vol] 13.6 g/dL 13.0-16.5 [facility] Immature granulocytes/100 WB C Auto (Bld)Ordered By: Brian Zimmerman on 07-11-2024 Immature granulocytes/100 WBC (Bld) 0.800 % 0.0-0.9 [facility] Comment on above: IG% - Immature Granu locytes (promyelocytes, myelocytes and metamyelocytes) > 1% indicates that a LEFT SHIFT is Present. LDL calc ser/plasOrdered By: Brian Zimmerman on 07-11-2024 Cholesterol in LDL [Mass/Vol] 88 mg/dL [facility] Comment on above: Rymyeqjbxd=794-106 m g/dL & Higher Jcvz=809 mg/dL or greater LDL Cholesterol, Calculated 88 mg/dL [facility] Comment on above: Eqtnnxqyye=474-215 m g/dL & Higher Mxjb=455 mg/dL or greater Laboratory - Chemistry and C hemistry - challengeOrdered By: Brian Zimmerman on 07-11-2024 AST [Catalytic activity/Vol] 32 U/L <38 [facility] Laboratory - Miscellaneous t estsOrdered By: Brian Zimmerman on 07-11-2024 Service comment (Unsp spec) [Interp] TNP [facility] Comment on above: Test not performed Lipid Profileon 07-11-2024 CHOL:HDL 5.07 Normal [facility] Comment on above: Performed By: #### L 501.86197, L500.4100, L500.4050, L506.0400, L3300.4490, L100.0100, L501.9520, L501.9910 ####[facility] [address] [place], [address] Cholesterol [Mass/Vol] 189 mg/dL Normal <=200 [facility] Comment on above: Result Comment: Chol esterol level, Desirable <200 mg/dLBorderline high cholesterol 200-239 mg/dLHigh cholesterol >=240 mg/dLRecommendations of the NCEP Adult Treatment Panel for thefollowing risk-cutoff thresholds for the [place] Americanpulation. Performed By: #### L 501.16601, L500.4100, L500.4050, L506.0400, L3300.4490, L100.0100, L501.9520, L501.9910 ####[facility] [address] [place], [address] Cholesterol in HDL [Mass/Vol] 37 mg/dL Low [facility] Comment on above: Result Comment: Lilly onal Cholesterol Education Program (NCEP) guidelines:<40 mg/dL: Low HDL-cholesterol (major risk factor for CHD)>= 60 mg/dL: High HDL-cholesterol (negative risk factor forCHD)HDL-cholesterol is affected by a number of factors, e.g.smoking, exercise, hormones, sex and age. Performed By: #### L 501.99802, L500.4100, L500.4050, L506.0400, L3300.4490, L100.0100, L501.9520, L501.9910 ####[facility] [address] [place], [address] Cholesterol in LDL [Mass/Vol] 88 mg/dL Normal [facility] Comment on above: Result Comment: Bord reuklc=732-300 mg/dL Higher Nixx=573 mg/dL or greater Performed By: #### L 501.08827, L500.4100, L500.4050, L506.0400, L3300.4490, L100.0100, L501.9520, L501.9910 ####[facility] [address] [place], [address] Cholesterol in VLDL [Mass/Vol] 64 mg/dL High 5-40 [facility] Comment on above: Performed By: #### L 501.03691, L500.4100, L500.4050, L506.0400, L3300.4490, L100.0100, L501.9520, L501.9910 ####[facility] [address] [place], [address] Triglyceride [Mass/Vol] 318 mg/dL High [facility] Comment on above: Result Comment: The drugs N-Acetylcysteine and Metamizole may falselydepress this assay.Normal range: <150 mg/dLBorderline High: 150-199 mg/dLHigh: 200-499 mg/dLVery High: >500 mg/dL Performed By: #### L 501.17235, L500.4100, L500.4050, L506.0400, L3300.4490, L100.0100, L501.9520, L501.9910 ####[facility] [address] [place], [address] Lymphocytes Auto (Unsp spec) [#/Vol]Ordered By: Brian Zimmerman on 07-11-2024 Lymphocytes (Bld) [#/Vol] 2.11 10*3/uL 0.83-4.51 [facility] Lymphocytes/100 WBC Auto (Un sp spec)Ordered By: Brian Zimmerman on 07-11-2024 Lymphocytes/100 WBC (Bld) 23.9 % 19-41 [facility] MCV (mean corpuscular volume ) determinationOrdered By: Brian Zimmerman on 07-11-2024 MCV (RBC) [Entitic vol] 89.4 fL 80-94 [facility] Mean corpuscular hemoglobin (MCH) determinationOrdered By: Brian Zimmerman on 07-11-2024 MCH (RBC) [Entitic mass] 28.9 pg 27.0-32.0 [facility] Mean corpuscular hemoglobin concentration (MCHC) determinationOrdered By: Brian Zimmerman on 07-11-2024 MCHC (RBC) [Mass/Vol] 32.3 g/dL 32-36 [facility] Mean platelet volume determi nationOrdered By: Brian Zimmerman on 07-11-2024 Platelet mean volume (Bld) [Entitic vol] 9.4 fL 6.2-12.0 [facility] Monocyte percentageOrdered B y: Brian Zimmerman on 07-11-2024 Monocytes/100 WBC (Bld) 10.2 % High 0-10 [facility] Neutrophil percentageOrdered By: Brian Zimmerman on 07-11-2024 Neutrophils/100 WBC (Bld) 60.6 % 47-70 [facility] No Panel InformationOrdered By: Brian Zimmerman on 07-11-2024 32 U/L <38 [facility] Nucleated red blood cell per centageOrdered By: Brian Zimmerman on 07-11-2024 Nucleated RBC/100 WBC (Bld) [Ratio] 0 % 0-5 [facility] PSA, total screeningOrdered By: Brian Zimmeramn on 07-11-2024 Prostate Specific Antigen Screen 3.78 ng/mL 0.02-4.00 [facility] Comment on above: This test was perfor [...] 07-11-2024 PSA,TOT SCREEN 3.78 ng/mL Normal 0.02-4.00 [facility] Comment on above: Result Comment: This test was performed using the [employer] tPSAmethod. Measured values of a patient??sample can varydepending on the testing procedure used. PSA valuesdetermined on patient samples by different testingprocedures cannot be used interchangeably. If there is achange in PSA assays while monitoring therapy, sequentialtesting should be performed to confirm baseline values. Performed By: #### L 501.22699, L500.4100, L500.4050, L506.0400, L3300.4490, L100.0100, L501.9520, L501.9910 ####[facility] [address] [place], [address] Platelet countOrdered By: Dav Zimmerman on 07-11-2024 Platelets (Bld) [#/Vol] 275 10*3/uL 150-450 [facility] Potassium (Unsp spec) [Mass/ Vol]Ordered By: Brian Zimmerman on 07-11-2024 Potassium [Moles/Vol] 4.2 mmol/L 3.3-5.1 [facility] Potassium measurement (mass/ volume)Ordered By: Brian Zimmerman on 07-11-2024 Potassium (Unsp spec) [Mass/Vol] 4.2 mmol/L 3.3-5.1 [facility] RBC Auto (Bld) [#/Vol]Ordere d By: Brian Zimmerman on 07-11-2024 RBC (Bld) [#/Vol] 4.71 10*6/uL 4.6-6.2 [facility] Screening total cholesterol/ high density lipoprotein (HDL) cholesterol ratioOrdered By: Brian Zimmerman on 07-11-2024 Cholesterol.total/Radha sterol in HDL [Mass ratio] 5.07 {ratio} [facility] Serum creatinine measurement (mass/volume)Ordered By: Brian Zimmerman on 07-11-2024 Creatinine [Mass/Vol] 0.64 mg/dL Low 0.70-1.20 [facility] Serum globulin measurementOr dered By: Brian Zimmerman on 07-11-2024 Globulin (S) [Mass/Vol] 3.5 g/dL 2.2-4.2 [facility] Serum glucose measurement (m ass/volume)Ordered By: Brian Zimmerman on 07-11-2024 Glucose [Mass/Vol] 91 mg/dL 70-99 [facility] Serum or plasma alanine orozco otransferase (ALT) measurementOrdered By: Brian Zimmerman on 07-11-2024 ALT [Catalytic activity/Vol] 36 U/L <47 [facility] Serum or plasma albumin marlyn urement (mass/volume)Ordered By: Brian Zimmerman on 07-11-2024 Albumin [Mass/Vol] 3.7 g/dL 3.4-4.8 [facility] Serum or plasma albumin/glob ulin mass ratioOrdered By: Brian Zimmerman on 07-11-2024 Albumin/Globulin [Mass ratio] 1.1 {ratio} 0.9-2.4 [facility] Serum or plasma alkaline marisol sphatase measurementOrdered By: Brian Zimmerman on 07-11-2024 ALP [Catalytic activity/Vol] 114 U/L 40-129 [facility] Serum or plasma calcium marlyn urement (mass/volume)Ordered By: Brian Zimmerman 07-11-2024 Calcium [Mass/Vol] 9.2 mg/dL 7.6-11.0 [facility] Serum or plasma cholesterol in HDL measurement (mass/volume)Ordered By: Brian Zimmerman on 07-11-2024 Cholesterol in HDL [Mass/Vol] 37 mg/dL Low >40 [facility] Comment on above: National Cholesterol Education Program (NCEP) guidelines:<40 mg/dL: Low HDL-cholesterol (major risk factor for CHD)>= 60 mg/dL: High HDL-cholesterol (negative risk factor for CHD)HDL-cholesterol is affected by a number of factors, e.g. smoking, exercise, hormones, sex and age. Serum or plasma cholesterol measurement (mass/volume)Ordered By: Brian Zimmerman on 07-11-2024 Cholesterol [Mass/Vol] 189 mg/dL <201 [facility] Comment on above: Cholesterol level, D esirable <200 mg/dLBorderline high cholesterol 200-239 mg/dLHigh cholesterol >=240 mg/dLRecommendations of the NCEP Adult Treatment Panel for the following risk-cutoff thresholds for the [place] population. Serum or plasma urea nitroge n measurement (mass/volume)Ordered By: Brian Zimmerman on 07-11-2024 Urea nitrogen [Mass/Vol] 10 mg/dL 4-19 [facility] Service comment (Unsp spec) [Interp]Ordered By: Brian Zimmerman on 07-11-2024 LDL Cholesterol Direct Comment TNP [facility] Comment on above: Test not performed Sodium levelOrdered By: Amol Zimmerman on 07-11-2024 Sodium [Moles/Vol] 139 mmol/L 133-145 [facility] T4 Free Directon 07-11-2024 T4 FREE DIRECT 1.00 ng/dL Normal 0.76-1.46 [facility] Comment on above: Performed By: #### L 501.26575, L500.4100, L500.4050, L506.0400, L3300.4490, L100.0100, L501.9520, L501.9910 ####[facility] [address] [place], [place], [address] T4 freeOrdered By: Brian bar on 07-11-2024 Free T4 [Mass/Vol] 1.00 ng/dL 0.76-1.46 [facility] TSH DL <= 0.005 mIU/L QnOrde red By: Brian Zimmerman on 07-11-2024 Thyroid Stimulating Hormone (TSH) 23.100 uIU/mL High 0.300-4.200 [facility] TSH Qn 23.100 uIU/mL High 0.300-4.200 [facility] Thyroid Stim Hormone (TSH)on 07-11-2024 TSH 23.100 uIU/mL High 0.300-4.200 [facility] Comment on above: Performed By: #### L 501.27332, L500.4100, L500.4050, L506.0400, L3300.4490, L100.0100, L501.9520, L501.9910 ####[facility] [address] [place], [address] Total proteinOrdered By: Kaleb Zimmerman on 07-11-2024 Protein [Mass/Vol] 7.2 g/dL 5.9-8.4 [facility] Triglycerides measurementOrd ered By: Brian Zimmerman on 07-11-2024 Triglyceride [Mass/Vol] 318 mg/dL High <199 [facility] Comment on above: The drugs N-Acetylcy steine and Metamizole may falsely depress this assay. Normal range: <150 mg/dLBorderline High: 150-199 mg/dLHigh: 200-499 mg/dLVery High: >500 mg/dL White blood cell (WBC) count Ordered By: Brian Zimmerman on 07-11-2024 WBC (Bld) [#/Vol] 8.8 10*3/uL 4.4-11.0 [facility] Basic Metabolic Profile (BMP )on 06-17-2024 BUN Normal 4-19 [facility] Comment on above: Result Comment: Canc elled via OM: Order cancelled - Patient discharged Performed By: #### L 500.2500, L100.0100 ####[facility] [address] [place], [address] BUN/CRE Normal 10-20 [facility] Comment on above: Result Comment: Canc elled via OM: Order cancelled - Patient discharged Performed By: #### L 500.2500, L100.0100 ####[facility] [address] [place], [address] Calcium Normal 7.6-11.0 [facility] Comment on above: Result Comment: Canc elled via OM: Order cancelled - Patient discharged Performed By: #### L 500.2500, L100.0100 ####[facility] [address] [place], [address] CL Normal 98-108 [facility] Comment on above: Result Comment: Canc elled via OM: Order cancelled - Patient discharged Performed By: #### L 500.2500, L100.0100 ####[facility] [address] [place], [address] CO2 Normal 21.0-32.0 [facility] Comment on above: Result Comment: Canc elled via OM: Order cancelled - Patient discharged Performed By: #### L 500.2500, L100.0100 ####[facility] [address] [place], [address] CREAT,SERUM Normal 0.70-1.20 [facility] Comment on above: Result Comment: Canc elled via OM: Order cancelled - Patient discharged Performed By: #### L 500.2500, L100.0100 ####[facility] [address] [place], [address] eGFR Normal >60 [facility] Comment on above: Result Comment: Canc elled via OM: Order cancelled - Patient discharged Performed By: #### L 500.2500, L100.0100 ####[facility] [address] [place], [address] GAP Normal 5-15 [facility] Comment on above: Result Comment: Canc elled via OM: Order cancelled - Patient discharged Performed By: #### L 500.2500, L100.0100 ####[facility] [address] [place], [address] GLU Normal 70-99 [facility] Comment on above: Result Comment: Canc elled via OM: Order cancelled - Patient discharged Performed By: #### L 500.2500, L100.0100 ####[facility] [address] [place], [address] Potassium Normal 3.3-5.1 [facility] Comment on above: Result Comment: Canc elled via OM: Order cancelled - Patient discharged Performed By: #### L 500.2500, L100.0100 ####[facility] [address] [place], [address] Basic Metabolic Profile (BMP) Normal 133-145 [facility] Comment on above: Result Comment: Canc elled via OM: Order cancelled - Patient discharged Performed By: #### L 500.2500, L100.0100 ####[facility] [address] [place], [address] CBC W/Diff, Automatedon 03-2 Absolute Neut Normal 2.0-7.7 [facility] Comment on above: Result Comment: Canc elled via OM: Order cancelled - Patient discharged Performed By: #### L 500.2500, L100.0100 ####[facility] [address] [place], [address] HCT Normal 40-54 [facility] Comment on above: Result Comment: Canc elled via OM: Order cancelled - Patient discharged Performed By: #### L 500.2500, L100.0100 ####[facility] [address] [place], [address] HGB Normal 13.0-16.5 [facility] Comment on above: Result Comment: Canc elled via OM: Order cancelled - Patient discharged Performed By: #### L 500.2500, L100.0100 ####[facility] [address] [place], [address] MCH Normal 27.0-32.0 [facility] Comment on above: Result Comment: Canc elled via OM: Order cancelled - Patient discharged Performed By: #### L 500.2500, L100.0100 ####[facility] [address] [place], [address] MCHC Normal 32-36 [facility] Comment on above: Result Comment: Canc elled via OM: Order cancelled - Patient discharged Performed By: #### L 500.2500, L100.0100 ####[facility] [address] [place], [address] MCV Normal 80-94 [facility] Comment on above: Result Comment: Canc elled via OM: Order cancelled - Patient discharged Performed By: #### L 500.2500, L100.0100 ####[facility] [address] [place], [address] NEUT% Normal 47-70 [facility] Comment on above: Result Comment: Canc elled via OM: Order cancelled - Patient discharged Performed By: #### L 500.2500, L100.0100 ####[facility] [address] [place], [address] PLT Normal 150-450 [facility] Comment on above: Result Comment: Canc elled via OM: Order cancelled - Patient discharged Performed By: #### L 500.2500, L100.0100 ####[facility] [address] [place], [address] RBC Normal 4.6-6.2 [facility] Comment on above: Result Comment: Canc elled via OM: Order cancelled - Patient discharged Performed By: #### L 500.2500, L100.0100 ####[facility] [address] [place], [address] RDW CV Normal 11.6-14.6 [facility] Comment on above: Result Comment: Canc elled via OM: Order cancelled - Patient discharged Performed By: #### L 500.2500, L100.0100 ####[facility] [address] [place], [address] RDW SD Normal 35.1-43.9 [facility] Comment on above: Result Comment: Canc elled via OM: Order cancelled - Patient discharged Performed By: #### L 500.2500, L100.0100 ####[facility] [address] [place], [address] WBC Normal 4.4-11.0 [facility] Comment on above: Result Comment: Canc elled via OM: Order cancelled - Patient discharged Performed By: #### L 500.2500, L100.0100 ####[facility] [address] [place], [address] Basic Metabolic Profile (BMP )on 06-16-2024 BUN Normal 4-19 [facility] Comment on above: Result Comment: Canc elled via OM: Order cancelled - Patient discharged Performed By: #### L 500.2500, L100.0100 ####[facility] [address] [place], [address] BUN/CRE Normal 10-20 [facility] Comment on above: Result Comment: Canc elled via OM: Order cancelled - Patient discharged Performed By: #### L 500.2500, L100.0100 ####[facility] [address] [place], [address] Calcium Normal 7.6-11.0 [facility] Comment on above: Result Comment: Canc elled via OM: Order cancelled - Patient discharged Performed By: #### L 500.2500, L100.0100 ####[facility] [address] [place], [address] CL Normal 98-108 [facility] Comment on above: Result Comment: Canc elled via OM: Order cancelled - Patient discharged Performed By: #### L 500.2500, L100.0100 ####[facility] [address] [place], [address] CO2 Normal 21.0-32.0 [facility] Comment on above: Result Comment: Canc elled via OM: Order cancelled - Patient discharged Performed By: #### L 500.2500, L100.0100 ####[facility] [address] [place], [address] CREAT,SERUM Normal 0.70-1.20 [facility] Comment on above: Result Comment: Canc elled via OM: Order cancelled - Patient discharged Performed By: #### L 500.2500, L100.0100 ####[facility] [address] [place], [address] eGFR Normal >60 [facility] Comment on above: Result Comment: Canc elled via OM: Order cancelled - Patient discharged Performed By: #### L 500.2500, L100.0100 ####[facility] [address] [place], [address] GAP Normal 5-15 [facility] Comment on above: Result Comment: Canc elled via OM: Order cancelled - Patient discharged Performed By: #### L 500.2500, L100.0100 ####[facility] [address] [place], [address] GLU Normal 70-99 [facility] Comment on above: Result Comment: Canc elled via OM: Order cancelled - Patient discharged Performed By: #### L 500.2500, L100.0100 ####[facility] [address] [place], [address] Potassium Normal 3.3-5.1 [facility] Comment on above: Result Comment: Canc elled via OM: Order cancelled - Patient discharged Performed By: #### L 500.2500, L100.0100 ####[facility] [address] [place], [address] Basic Metabolic Profile (BMP) Normal 133-145 [facility] Comment on above: Result Comment: Canc elled via OM: Order cancelled - Patient discharged Performed By: #### L 500.2500, L100.0100 ####[facility] [address] [place], [address] CBC W/Diff, Automatedon 03-2 0-2024 Absolute Neut Normal 2.0-7.7 [facility] Comment on above: Result Comment: Canc elled via OM: Order cancelled - Patient discharged Performed By: #### L 500.2500, L100.0100 ####[facility] [address] [place], [address] HCT Normal 40-54 [facility] Comment on above: Result Comment: Canc elled via OM: Order cancelled - Patient discharged Performed By: #### L 500.2500, L100.0100 ####[facility] [address] [place], [address] HGB Normal 13.0-16.5 [facility] Comment on above: Result Comment: Canc elled via OM: Order cancelled - Patient discharged Performed By: #### L 500.2500, L100.0100 ####[facility] [address] [place], [address] MCH Normal 27.0-32.0 [facility] Comment on above: Result Comment: Canc elled via OM: Order cancelled - Patient discharged Performed By: #### L 500.2500, L100.0100 ####[facility] [address] [place], [address] MCHC Normal 32-36 [facility] Comment on above: Result Comment: Canc elled via OM: Order cancelled - Patient discharged Performed By: #### L 500.2500, L100.0100 ####[facility] [address] [place], [address] MCV Normal 80-94 [facility] Comment on above: Result Comment: Canc elled via OM: Order cancelled - Patient discharged Performed By: #### L 500.2500, L100.0100 ####[facility] [address] [place], [address] NEUT% Normal 47-70 [facility] Comment on above: Result Comment: Canc elled via OM: Order cancelled - Patient discharged Performed By: #### L 500.2500, L100.0100 ####[facility] [address] [place], [address] PLT Normal 150-450 [facility] Comment on above: Result Comment: Canc elled via OM: Order cancelled - Patient discharged Performed By: #### L 500.2500, L100.0100 ####[facility] [address] [place], [address] RBC Normal 4.6-6.2 [facility] Comment on above: Result Comment: Canc elled via OM: Order cancelled - Patient discharged Performed By: #### L 500.2500, L100.0100 ####[facility] [address] [place], [address] RDW CV Normal 11.6-14.6 [facility] Comment on above: Result Comment: Canc elled via OM: Order cancelled - Patient discharged Performed By: #### L 500.2500, L100.0100 ####[facility] [address] [place], [address] RDW SD Normal 35.1-43.9 [facility] Comment on above: Result Comment: Canc elled via OM: Order cancelled - Patient discharged Performed By: #### L 500.2500, L100.0100 ####[facility] [address] [place], [address] WBC Normal 4.4-11.0 [facility] Comment on above: Result Comment: Canc elled via OM: Order cancelled - Patient discharged Performed By: #### L 500.2500, L100.0100 ####[facility] [address] [place], [address] Basic Metabolic Profile (BMP )on 06-15-2024 BUN Normal 4-19 [facility] Comment on above: Result Comment: Canc elled via OM: Order cancelled - Patient discharged Performed By: #### L 100.0100, L500.2500 ####[facility] [address] [place], [address] BUN/CRE Normal 10-20 [facility] Comment on above: Result Comment: Canc elled via OM: Order cancelled - Patient discharged Performed By: #### L 100.0100, L500.2500 ####[facility] [address] [place], [address] Calcium Normal 7.6-11.0 [facility] Comment on above: Result Comment: Canc elled via OM: Order cancelled - Patient discharged Performed By: #### L 100.0100, L500.2500 ####[facility] [address] [place], [address] CL Normal 98-108 [facility] Comment on above: Result Comment: Canc elled via OM: Order cancelled - Patient discharged Performed By: #### L 100.0100, L500.2500 ####[facility] [address] [place], [address] CO2 Normal 21.0-32.0 [facility] Comment on above: Result Comment: Canc elled via OM: Order cancelled - Patient discharged Performed By: #### L 100.0100, L500.2500 ####[facility] [address] [place], [address] CREAT,SERUM Normal 0.70-1.20 [facility] Comment on above: Result Comment: Canc elled via OM: Order cancelled - Patient discharged Performed By: #### L 100.0100, L500.2500 ####[facility] [address] [place], [address] eGFR Normal >60 [facility] Comment on above: Result Comment: Canc elled via OM: Order cancelled - Patient discharged Performed By: #### L 100.0100, L500.2500 ####[facility] [address] [place], [address] GAP Normal 5-15 [facility] Comment on above: Result Comment: Canc elled via OM: Order cancelled - Patient discharged Performed By: #### L 100.0100, L500.2500 ####[facility] [address] [place], [address] GLU Normal 70-99 [facility] Comment on above: Result Comment: Canc elled via OM: Order cancelled - Patient discharged Performed By: #### L 100.0100, L500.2500 ####[facility] [address] [place], [address] Potassium Normal 3.3-5.1 [facility] Comment on above: Result Comment: Canc elled via OM: Order cancelled - Patient discharged Performed By: #### L 100.0100, L500.2500 ####[facility] [address] [place], [address] Basic Metabolic Profile (BMP) Normal 133-145 [facility] Comment on above: Result Comment: Canc elled via OM: Order cancelled - Patient discharged Performed By: #### L 100.0100, L500.2500 ####[facility] [address] [place], [address] CBC W/Diff, Automatedon - Absolute Neut Normal 2.0-7.7 [facility] Comment on above: Result Comment: Canc elled via OM: Order cancelled - Patient discharged Performed By: #### L 100.0100, L500.2500 ####[facility] [address] [place], [address] HCT Normal 40-54 [facility] Comment on above: Result Comment: Canc elled via OM: Order cancelled - Patient discharged Performed By: #### L 100.0100, L500.2500 ####[facility] [address] [place], [address] HGB Normal 13.0-16.5 [facility] Comment on above: Result Comment: Canc elled via OM: Order cancelled - Patient discharged Performed By: #### L 100.0100, L500.2500 ####[facility] [address] [place], [address] MCH Normal 27.0-32.0 [facility] Comment on above: Result Comment: Canc elled via OM: Order cancelled - Patient discharged Performed By: #### L 100.0100, L500.2500 ####[facility] [address] [place], [address] MCHC Normal 32-36 [facility] Comment on above: Result Comment: Canc elled via OM: Order cancelled - Patient discharged Performed By: #### L 100.0100, L500.2500 ####[facility] [address] [place], [address] MCV Normal 80-94 [facility] Comment on above: Result Comment: Canc elled via OM: Order cancelled - Patient discharged Performed By: #### L 100.0100, L500.2500 ####[facility] [address] [place], [address] NEUT% Normal 47-70 [facility] Comment on above: Result Comment: Canc elled via OM: Order cancelled - Patient discharged Performed By: #### L 100.0100, L500.2500 ####[facility] [address] [place], [address] PLT Normal 150-450 [facility] Comment on above: Result Comment: Canc elled via OM: Order cancelled - Patient discharged Performed By: #### L 100.0100, L500.2500 ####[facility] [address] [place], [address] RBC Normal 4.6-6.2 [facility] Comment on above: Result Comment: Canc elled via OM: Order cancelled - Patient discharged Performed By: #### L 100.0100, L500.2500 ####[facility] [address] [place], [address] RDW CV Normal 11.6-14.6 [facility] Comment on above: Result Comment: Canc elled via OM: Order cancelled - Patient discharged Performed By: #### L 100.0100, L500.2500 ####[facility] [address] [place], [address] RDW SD Normal 35.1-43.9 [facility] Comment on above: Result Comment: Canc elled via OM: Order cancelled - Patient discharged Performed By: #### L 100.0100, L500.2500 ####[facility] [address] [place], [address] WBC Normal 4.4-11.0 [facility] Comment on above: Result Comment: Canc elled via OM: Order cancelled - Patient discharged Performed By: #### L 100.0100, L500.2500 ####[facility] [address] [place], [address] Basic Metabolic Profile (BMP )on 06-14-2024 BUN Normal -19 [facility] Comment on above: Result Comment: Canc elled via OM: Order cancelled - Patient discharged Performed By: #### L 500.2500, L100.0100 ####[facility] [address] [place], [address] BUN/CRE Normal 10-20 [facility] Comment on above: Result Comment: Canc elled via OM: Order cancelled - Patient discharged Performed By: #### L 500.2500, L100.0100 ####[facility] [address] [place], [address] Calcium Normal 7.6-11.0 [facility] Comment on above: Result Comment: Canc elled via OM: Order cancelled - Patient discharged Performed By: #### L 500.2500, L100.0100 ####[facility] [address] [place], [address] CL Normal 98-108 [facility] Comment on above: Result Comment: Canc elled via OM: Order cancelled - Patient discharged Performed By: #### L 500.2500, L100.0100 ####[facility] [address] [place], [address] CO2 Normal 21.0-32.0 [facility] Comment on above: Result Comment: Canc elled via OM: Order cancelled - Patient discharged Performed By: #### L 500.2500, L100.0100 ####[facility] [address] [place], [address] CREAT,SERUM Normal 0.70-1.20 [facility] Comment on above: Result Comment: Canc elled via OM: Order cancelled - Patient discharged Performed By: #### L 500.2500, L100.0100 ####[facility] [address] [place], [address] eGFR Normal >60 [facility] Comment on above: Result Comment: Canc elled via OM: Order cancelled - Patient discharged Performed By: #### L 500.2500, L100.0100 ####[facility] [address] [place], [address] GAP Normal 5-15 [facility] Comment on above: Result Comment: Canc elled via OM: Order cancelled - Patient discharged Performed By: #### L 500.2500, L100.0100 ####[facility] [address] [place], [address] GLU Normal 70-99 [facility] Comment on above: Result Comment: Canc elled via OM: Order cancelled - Patient discharged Performed By: #### L 500.2500, L100.0100 ####[facility] [address] [place], [address] Potassium Normal 3.3-5.1 [facility] Comment on above: Result Comment: Canc elled via OM: Order cancelled - Patient discharged Performed By: #### L 500.2500, L100.0100 ####[facility] [address] [place], [address] Basic Metabolic Profile (BMP) Normal 133-145 [facility] Comment on above: Result Comment: Canc elled via OM: Order cancelled - Patient discharged Performed By: #### L 500.2500, L100.0100 ####[facility] [address] [place], [address] CBC W/Diff, Automatedon 05-28 Absolute Neut Normal 2.0-7.7 [facility] Comment on above: Result Comment: Canc elled via OM: Order cancelled - Patient discharged Performed By: #### L 500.2500, L100.0100 ####[facility] [address] [place], [address] HCT Normal 40-54 [facility] Comment on above: Result Comment: Canc elled via OM: Order cancelled - Patient discharged Performed By: #### L 500.2500, L100.0100 ####[facility] [address] [place], [address] HGB Normal 13.0-16.5 [facility] Comment on above: Result Comment: Canc elled via OM: Order cancelled - Patient discharged Performed By: #### L 500.2500, L100.0100 ####[facility] [address] [place], [address] MCH Normal 27.0-32.0 [facility] Comment on above: Result Comment: Canc elled via OM: Order cancelled - Patient discharged Performed By: #### L 500.2500, L100.0100 ####[facility] [address] [place], [address] MCHC Normal 32-36 [facility] Comment on above: Result Comment: Canc elled via OM: Order cancelled - Patient discharged Performed By: #### L 500.2500, L100.0100 ####[facility] [address] [place], [address] MCV Normal 80-94 [facility] Comment on above: Result Comment: Canc elled via OM: Order cancelled - Patient discharged Performed By: #### L 500.2500, L100.0100 ####[facility] [address] [place], [address] NEUT% Normal 47-70 [facility] Comment on above: Result Comment: Canc elled via OM: Order cancelled - Patient discharged Performed By: #### L 500.2500, L100.0100 ####[facility] [address] [place], [address] PLT Normal 150-450 [facility] Comment on above: Result Comment: Canc elled via OM: Order cancelled - Patient discharged Performed By: #### L 500.2500, L100.0100 ####[facility] [address] [place], [address] RBC Normal 4.6-6.2 [facility] Comment on above: Result Comment: Canc elled via OM: Order cancelled - Patient discharged Performed By: #### L 500.2500, L100.0100 ####[facility] [address] [place], [address] RDW CV Normal 11.6-14.6 [facility] Comment on above: Result Comment: Canc elled via OM: Order cancelled - Patient discharged Performed By: #### L 500.2500, L100.0100 ####[facility] [address] [place], [address] RDW SD Normal 35.1-43.9 [facility] Comment on above: Result Comment: Canc elled via OM: Order cancelled - Patient discharged Performed By: #### L 500.2500, L100.0100 ####[facility] [address] [place], [address] WBC Normal 4.4-11.0 [facility] Comment on above: Result Comment: Canc elled via OM: Order cancelled - Patient discharged Performed By: #### L 500.2500, L100.0100 ####[facility] [address] [place], [address] Culture, Blood (WB)on 2024 CUB Blood cultures x2, from two different sites No growth in 5 days. Normal [facility] Comment on above: Performed By: #### M 200.1000 ####[facility] [address] [place], [address] Basic Metabolic Profile (BMP )on 06-13-2024 BUN Normal 4-19 [facility] Comment on above: Result Comment: Canc elled via OM: Order cancelled - Patient discharged Performed By: #### L 500.2500, L100.0100 ####[facility] [address] [place], [address] BUN/CRE Normal 10-20 [facility] Comment on above: Result Comment: Canc elled via OM: Order cancelled - Patient discharged Performed By: #### L 500.2500, L100.0100 ####[facility] [address] [place], [address] Calcium Normal 7.6-11.0 [facility] Comment on above: Result Comment: Canc elled via OM: Order cancelled - Patient discharged Performed By: #### L 500.2500, L100.0100 ####[facility] [address] [place], [address] CL Normal 98-108 [facility] Comment on above: Result Comment: Canc elled via OM: Order cancelled - Patient discharged Performed By: #### L 500.2500, L100.0100 ####[facility] [address] [place], [address] CO2 Normal 21.0-32.0 [facility] Comment on above: Result Comment: Canc elled via OM: Order cancelled - Patient discharged Performed By: #### L 500.2500, L100.0100 ####[facility] [address] [place], [address] CREAT,SERUM Normal 0.70-1.20 [facility] Comment on above: Result Comment: Canc elled via OM: Order cancelled - Patient discharged Performed By: #### L 500.2500, L100.0100 ####[facility] [address] [place], [address] eGFR Normal >60 [facility] Comment on above: Result Comment: Canc elled via OM: Order cancelled - Patient discharged Performed By: #### L 500.2500, L100.0100 ####[facility] [address] [place], [address] GAP Normal 5-15 [facility] Comment on above: Result Comment: Canc elled via OM: Order cancelled - Patient discharged Performed By: #### L 500.2500, L100.0100 ####[facility] [address] [place], [address] GLU Normal 70-99 [facility] Comment on above: Result Comment: Canc elled via OM: Order cancelled - Patient discharged Performed By: #### L 500.2500, L100.0100 ####[facility] [address] [place], [address] Potassium Normal 3.3-5.1 [facility] Comment on above: Result Comment: Canc elled via OM: Order cancelled - Patient discharged Performed By: #### L 500.2500, L100.0100 ####[facility] [address] [place], [address] Basic Metabolic Profile (BMP) Normal 133-145 [facility] Comment on above: Result Comment: Canc elled via OM: Order cancelled - Patient discharged Performed By: #### L 500.2500, L100.0100 ####[facility] [address] [place], [address] CBC W/Diff, Automatedon 05-28 Absolute Neut Normal 2.0-7.7 [facility] Comment on above: Result Comment: Canc elled via OM: Order cancelled - Patient discharged Performed By: #### L 500.2500, L100.0100 ####[facility] [address] [place], [address] HCT Normal 40-54 [facility] Comment on above: Result Comment: Canc elled via OM: Order cancelled - Patient discharged Performed By: #### L 500.2500, L100.0100 ####[facility] [address] [place], [address] HGB Normal 13.0-16.5 [facility] Comment on above: Result Comment: Canc elled via OM: Order cancelled - Patient discharged Performed By: #### L 500.2500, L100.0100 ####[facility] [address] [place], [address] MCH Normal 27.0-32.0 [facility] Comment on above: Result Comment: Canc elled via OM: Order cancelled - Patient discharged Performed By: #### L 500.2500, L100.0100 ####[facility] [address] [place], [address] MCHC Normal 32-36 [facility] Comment on above: Result Comment: Canc elled via OM: Order cancelled - Patient discharged Performed By: #### L 500.2500, L100.0100 ####[facility] [address] [place], [address] MCV Normal 80-94 [facility] Comment on above: Result Comment: Canc elled via OM: Order cancelled - Patient discharged Performed By: #### L 500.2500, L100.0100 ####[facility] [address] [place], [address] NEUT% Normal 47-70 [facility] Comment on above: Result Comment: Canc elled via OM: Order cancelled - Patient discharged Performed By: #### L 500.2500, L100.0100 ####[facility] [address] [place], [address] PLT Normal 150-450 [facility] Comment on above: Result Comment: Canc elled via OM: Order cancelled - Patient discharged Performed By: #### L 500.2500, L100.0100 ####[facility] [address] [place], [address] RBC Normal 4.6-6.2 [facility] Comment on above: Result Comment: Canc elled via OM: Order cancelled - Patient discharged Performed By: #### L 500.2500, L100.0100 ####[facility] [address] [place], [address] RDW CV Normal 11.6-14.6 [facility] Comment on above: Result Comment: Canc elled via OM: Order cancelled - Patient discharged Performed By: #### L 500.2500, L100.0100 ####[facility] [address] [place], [address] RDW SD Normal 35.1-43.9 [facility] Comment on above: Result Comment: Canc elled via OM: Order cancelled - Patient discharged Performed By: #### L 500.2500, L100.0100 ####[facility] [address] [place], [address] WBC Normal 4.4-11.0 [facility] Comment on above: Result Comment: Canc elled via OM: Order cancelled - Patient discharged Performed By: #### L 500.2500, L100.0100 ####[facility] [address] [place], [address] Absolute lymphocyte countOrd ered By: Juliana Shaw on 06-12-2024 Lymphocytes Auto (Unsp spec) [#/Vol] 1.86 10*3/uL 0.83-4.51 [facility] Absolute neutrophil countOrd ered By: Juliana Shaw on 06-12-2024 Neutrophils (Bld) [#/Vol] 4.4 10*3/uL 2.0-7.7 [facility] Anion gap in Serum or Plasma Ordered By: Juliana Shaw on 06-12-2024 Anion gap [Moles/Vol] 11 mmol/L 5-15 [facility] Automated blood erythrocyte countOrdered By: Juliana Shaw on 06-12-2024 RBC (Bld) [#/Vol] 4.32 10*6/uL Low 4.6-6.2 [facility] Comment on above: Performed By: #### L 100.0100, L500.2500 ####[facility] [address] [place], [address] Automated blood hematocrit ( percentage)Ordered By: Juliana Shaw on 06-12-2024 Hematocrit (Bld) [Volume fraction] 38.4 % Low 40-54 [facility] Comment on above: Performed By: #### L 100.0100, L500.2500 ####[facility] [address] [place], [address] Automated lymphocyte count a s percentage of total leukocytesOrdered By: Juliana Shaw on 06-12-2024 Lymphocytes/100 WBC (Bld) 24.3 % Normal 19-41 [facility] Comment on above: Performed By: #### L 100.0100, L500.2500 ####[facility] [address] [place], [address] Lymphocytes/100 WBC Auto (Unsp spec) 24.3 % 19-41 [facility] BUN/creatinine ratioOrdered By: Juliana Shaw on 06-12-2024 Urea nitrogen/Creatinine [Mass ratio] 25.3 mg/mg High 10-20 [facility] Basic Metabolic Profile (BMP )on 06-12-2024 BUN/CRE 25.3 RATIO High 10-20 [facility] Comment on above: Performed By: #### L 100.0100, L500.2500 ####[facility] [address] [place], [address] ECRCL 97.57 ml/min Normal 50-250 [facility] Comment on above: Performed By: #### L 100.0100, L500.2500 ####[facility] [address] [place], [address] GAP 11 Normal 5-15 [facility] Comment on above: Performed By: #### L 100.0100, L500.2500 ####[facility] [address] [place], [address] Basophil percentageOrdered B y: Juliana Shaw on 06-12-2024 Basophils/100 WBC (Bld) 0.7 % Normal 0-1 [facility] Comment on above: Performed By: #### L 100.0100, L500.2500 ####[facility] [address] [place], [address] CBC W/Diff, Automatedon - Absolute Lymph 1.86 X10 3/uL Normal 0.83-4.51 [facility] Comment on above: Performed By: #### L 100.0100, L500.2500 ####[facility] [address] [place], [address] Absolute Neut 4.4 X10 3/uL Normal 2.0-7.7 [facility] Comment on above: Performed By: #### L 100.0100, L500.2500 ####[facility] [address] [place], [address] IG% 2.100 High 0.0-0.9 [facility] Comment on above: Result Comment: IG% - Immature Granulocytes (promyelocytes, myelocytes andmetamyelocytes) > 1% indicates that a LEFT SHIFT is Present. Performed By: #### L 100.0100, L500.2500 ####[facility] [address] [place], [address] Nucleated RBC (Bld) [#/Vol] 0 10*3/uL Normal 0-5 [facility] Comment on above: Performed By: #### L 100.0100, L500.2500 ####[facility] [address] [place], [address] RDW SD 53.4 fl High 35.1-43.9 [facility] Comment on above: Performed By: #### L 100.0100, L500.2500 ####[facility] [address] [place], [address] Carbon dioxide, total [Moles /volume] in Central venous bloodOrdered By: Juliana Shaw on 06-12-2024 CO2 [Moles/Vol] 23.1 mmol/L Normal 21.0-32.0 [facility] Comment on above: Performed By: #### L 100.0100, L500.2500 ####[facility] [address] [place], [address] Chloride assayOrdered By: Carlos Shaw on 06-12-2024 Chloride [Moles/Vol] 102 mmol/L Normal 98-108 [facility] Comment on above: Performed By: #### L 100.0100, L500.2500 ####[facility] [address] [place], [address] Discharge Instructionon 05-28 Discharge Instruction Normal [facility] Eosinophil percentageOrdered By: Juliana Shaw on 03-16-2025 Eosinophils/100 WBC (Bld) 3.5 % Normal 0-5 [facility] Comment on above: Performed By: #### L 100.0100, L500.2500 ####[facility] [address] [place], [place], [address] Erythrocyte distribution wid th ratioOrdered By: Juliana Shaw on 06-12-2024 Erythrocyte distribution width (RBC) [Ratio] 16.4 % High 11.6-14.6 [facility] Comment on above: Performed By: #### L 100.0100, L500.2500 ####[facility] [address] [place], [place], [id number] Erythrocyte distribution wid th standard deviationOrdered By: Juliana Shaw on 06-12-2024 Erythrocyte distribution width (RBC) [Entitic vol] 53.4 fL High 35.1-43.9 [facility] Erythrocyte distribution width (RBC) [Ratio] 53.4 fl High 35.1-43.9 [facility] Estimation of creatinine moon aranceOrdered By: Juliana Shaw on 06-12-2024 Estimated Creatinine Clearance Calc 97.57 ml/min 50-250 [facility] GFR/1.73 sq M.predicted elias g non-blacks MDRD (S/P/Bld) [Vol rate/Area]Ordered By: Juliana Shaw on 06-12-2024 Estimated GFR (MDRD) Non-Af Amer 107 >60 [facility] Comment on above: mL/min/1.73m2 CKD-EP I Creatinine Equation (2020) Glomerular filtration rate ( GFR) estimation/1.73 sq m using serum, plasma, or whole bOrdered By: Juliana Shaw on 06-12-2024 GFR/1.73 sq M.predicted among non-blacks MDRD (S/P/Bld) [Vol rate/Area] 107 mL/min/{1.73_m2} Normal >60 [facility] Comment on above: mL/min/1.73m2 CKD-EP I Creatinine Equation (2020) Result Comment: mL/m in/1.73m2 CKD-EPI Creatinine Equation (2020) Performed By: #### L 100.0100, L500.2500 ####[facility] [address] [place], [address] Hemoglobin measurementOrdere d By: Juliana Shaw on 06-12-2024 Hemoglobin (Bld) [Mass/Vol] 12.3 g/dL Low 13.0-16.5 [facility] Comment on above: Performed By: #### L 100.0100, L500.2500 ####[facility] [address] [place], [address] Immature granulocytes/100 WB C Auto (Bld)Ordered By: Juliana Shaw on 06-12-2024 Immature granulocytes/100 WBC (Bld) 2.100 % High 0.0-0.9 [facility] Comment on above: IG% - Immature Granu locytes (promyelocytes, myelocytes and metamyelocytes) > 1% indicates that a LEFT SHIFT is Present. Lymphocytes Auto (Unsp spec) [#/Vol]Ordered By: Juliana Shaw on 06-12-2024 Lymphocytes (Bld) [#/Vol] 1.86 10*3/uL 0.83-4.51 [facility] MCV (mean corpuscular volume ) determinationOrdered By: Juliana Shaw on 06-12-2024 MCV (RBC) [Entitic vol] 88.9 fL Normal 80-94 [facility] Comment on above: Performed By: #### L 100.0100, L500.2500 ####[facility] [address] [place], [address] Mean corpuscular hemoglobin (MCH) determinationOrdered By: Juliana Shaw on 06-12-2024 MCH (RBC) [Entitic mass] 28.5 pg Normal 27.0-32.0 [facility] Comment on above: Performed By: #### L 100.0100, L500.2500 ####[facility] [address] [place], [address] Mean corpuscular hemoglobin concentration (MCHC) determinationOrdered By: Juliana Shaw on 06-12-2024 MCHC (RBC) [Mass/Vol] 32.0 g/dL Normal 32-36 [facility] Comment on above: Performed By: #### L 100.0100, L500.2500 ####[facility] [address] [place], [address] Mean platelet volume determi nationOrdered By: Juliana Shaw on 06-12-2024 Platelet mean volume (Bld) [Entitic vol] 9.8 fL Normal 6.2-12.0 [facility] Comment on above: Performed By: #### L 100.0100, L500.2500 ####[facility] [address] [place], [address] Monocyte percentageOrdered B y: Juliana Shaw on 06-12-2024 Monocytes/100 WBC (Bld) 12.5 % High 0-10 [facility] Comment on above: Performed By: #### L 100.0100, L500.2500 ####[facility] [address] [place], [address] Neutrophil percentageOrdered By: Juliana Shaw on 06-12-2024 Neutrophils/100 WBC (Bld) 56.9 % Normal 47-70 [facility] Comment on above: Performed By: #### L 100.0100, L500.2500 ####[facility] [address] [place], [address] Nucleated red blood cell per centageOrdered By: Juliana Shaw on 06-12-2024 Nucleated RBC/100 WBC (Bld) [Ratio] 0 % 0-5 [facility] Platelet countOrdered By: Carlos Shaw on 06-12-2024 Platelets (Bld) [#/Vol] 288 10*3/uL Normal 150-450 [facility] Comment on above: Performed By: #### L 100.0100, L500.2500 ####[facility] [address] [place], [address] Potassium measurement (mass/ volume)Ordered By: Juliana Shaw on 06-12-2024 Potassium [Moles/Vol] 4.1 mmol/L Normal 3.3-5.1 [facility] Comment on above: Hemolysis present, R esults could be affected. Result Comment: Hemo lysis present, Results??could be affected.?? Performed By: #### L 100.0100, L500.2500 ####[facility] [address] [place], [address] Potassium (Unsp spec) [Mass/Vol] 4.1 mmol/L 3.3-5.1 [facility] Comment on above: Hemolysis present, R esults could be affected. Serum creatinine measurement (mass/volume)Ordered By: Juliana Shaw on 06-12-2024 Creatinine [Mass/Vol] 0.57 mg/dL Low 0.70-1.20 [facility] Comment on above: Performed By: #### L 100.0100, L500.2500 ####[facility] [address] [place], [address] Serum glucose measurement (m ass/volume)Ordered By: Juliana Shaw on 06-12-2024 Glucose [Mass/Vol] 163 mg/dL High 70-99 [facility] Comment on above: Performed By: #### L 100.0100, L500.2500 ####[facility] [address] [place], [address] Serum or plasma calcium marlyn urement (mass/volume)Ordered By: Juliana Shaw on 06-12-2024 Calcium [Mass/Vol] 9.3 mg/dL Normal 7.6-11.0 [facility] Comment on above: Performed By: #### L 100.0100, L500.2500 ####[facility] [address] [place], [address] Serum or plasma urea nitroge n measurement (mass/volume)Ordered By: Juliana Shaw on 06-12-2024 Urea nitrogen [Mass/Vol] 15 mg/dL Normal 4-19 [facility] Comment on above: Performed By: #### L 100.0100, L500.2500 ####[facility] [address] [place], [address] Sodium levelOrdered By: Nicci Shaw on 06-12-2024 Sodium [Moles/Vol] 137 mmol/L Normal 133-145 [facility] Comment on above: Performed By: #### L 100.0100, L500.2500 ####[facility] [address] [place], [address] Urine Cultureon 06-12-2024 URC Normal [facility] Comment on above: Performed By: #### M 100.2200 ####[facility] [address] [place], [address] White blood cell (WBC) count Ordered By: Juliana Shaw on 06-12-2024 WBC (Bld) [#/Vol] 7.7 10*3/uL Normal 4.4-11.0 [facility] Comment on above: Performed By: #### L 100.0100, L500.2500 ####[facility] [address] [place], [address] Basic Metabolic Profile (BMP )on 06-11-2024 BUN/CRE 21.5 RATIO High 10-20 [facility] Comment on above: Performed By: #### L 100.0100, L500.2500 ####[facility] [address] [place], [address] Calcium [Mass/Vol] 9.1 mg/dL Normal 7.6-11.0 [facility] Comment on above: Performed By: #### L 100.0100, L500.2500 ####[facility] [address] [place], [address] Chloride [Moles/Vol] 102 mmol/L Normal 98-108 [facility] Comment on above: Performed By: #### L 100.0100, L500.2500 ####[facility] [address] [place], [address] CO2 [Moles/Vol] 21.5 mmol/L Normal 21.0-32.0 [facility] Comment on above: Performed By: #### L 100.0100, L500.2500 ####[facility] [address] [place], [address] Creatinine [Mass/Vol] 0.61 mg/dL Low 0.70-1.20 [facility] Comment on above: Performed By: #### L 100.0100, L500.2500 ####[facility] [address] [place], [address] ECRCL 97.57 ml/min Normal 50-250 [facility] Comment on above: Performed By: #### L 100.0100, L500.2500 ####[facility] [address] [place], [address] GAP 11 Normal 5-15 [facility] Comment on above: Performed By: #### L 100.0100, L500.2500 ####[facility] [address] [place], [address] GFR/1.73 sq M.predicted among non-blacks MDRD (S/P/Bld) [Vol rate/Area] 105 mL/min/{1.73_m2} Normal >60 [facility] Comment on above: Result Comment: mL/m in/1.73m2 CKD-EPI Creatinine Equation (2020) Performed By: #### L 100.0100, L500.2500 ####[facility] [address] [place], [address] Glucose [Mass/Vol] 148 mg/dL High 70-99 [facility] Comment on above: Performed By: #### L 100.0100, L500.2500 ####[facility] [address] [place], [address] Potassium [Moles/Vol] 4.2 mmol/L Normal 3.3-5.1 [facility] Comment on above: Performed By: #### L 100.0100, L500.2500 ####[facility] [address] [place], [address] Sodium [Moles/Vol] 134 mmol/L Normal 133-145 [facility] Comment on above: Performed By: #### L 100.0100, L500.2500 ####[facility] [address] [place], [address] Urea nitrogen [Mass/Vol] 13 mg/dL Normal 4-19 [facility] Comment on above: Performed By: #### L 100.0100, L500.2500 ####[facility] [address] [place], [address] CBC W/Diff, Automatedon 05-28 Absolute Lymph 1.61 X10 3/uL Normal 0.83-4.51 [facility] Comment on above: Performed By: #### L 100.0100, L500.2500 ####[facility] [address] [place], [address] Absolute Neut 7.0 X10 3/uL Normal 2.0-7.7 [facility] Comment on above: Performed By: #### L 100.0100, L500.2500 ####[facility] [address] [place], [address] Basophils/100 WBC (Bld) 0.5 % Normal 0-1 [facility] Comment on above: Performed By: #### L 100.0100, L500.2500 ####[facility] [address] [place], [address] Eosinophils/100 WBC (Bld) 2.2 % Normal 0-5 [facility] Comment on above: Performed By: #### L 100.0100, L500.2500 ####[facility] [address] [place], [address] Erythrocyte distribution width (RBC) [Ratio] 16.6 % High 11.6-14.6 [facility] Comment on above: Performed By: #### L 100.0100, L500.2500 ####[facility] [address] [place], [address] Hematocrit (Bld) [Volume fraction] 37.0 % Low 40-54 [facility] Comment on above: Performed By: #### L 100.0100, L500.2500 ####[facility] [address] [place], [address] Hemoglobin (Bld) [Mass/Vol] 11.9 g/dL Low 13.0-16.5 [facility] Comment on above: Performed By: #### L 100.0100, L500.2500 ####[facility] [address] [place], [address] IG% 1.100 High 0.0-0.9 [facility] Comment on above: Result Comment: IG% - Immature Granulocytes (promyelocytes, myelocytes andmetamyelocytes) > 1% indicates that a LEFT SHIFT is Present. Performed By: #### L 100.0100, L500.2500 ####[facility] [address] [place], [address] Lymphocytes/100 WBC (Bld) 16.6 % Low 19-41 [facility] Comment on above: Performed By: #### L 100.0100, L500.2500 ####[facility] [address] [place], [address] MCH (RBC) [Entitic mass] 28.5 pg Normal 27.0-32.0 [facility] Comment on above: Performed By: #### L 100.0100, L500.2500 ####[facility] [address] [place], [address] MCHC (RBC) [Mass/Vol] 32.2 g/dL Normal 32-36 [facility] Comment on above: Performed By: #### L 100.0100, L500.2500 ####[facility] [address] [place], [address] MCV (RBC) [Entitic vol] 88.5 fL Normal 80-94 [facility] Comment on above: Performed By: #### L 100.0100, L500.2500 ####[facility] [address] [place], [address] Monocytes/100 WBC (Bld) 7.4 % Normal 0-10 [facility] Comment on above: Performed By: #### L 100.0100, L500.2500 ####[facility] [address] [place], [address] Neutrophils/100 WBC (Bld) 72.2 % High 47-70 [facility] Comment on above: Performed By: #### L 100.0100, L500.2500 ####[facility] [address] [place], [address] Nucleated RBC (Bld) [#/Vol] 0 10*3/uL Normal 0-5 [facility] Comment on above: Performed By: #### L 100.0100, L500.2500 ####[facility] [address] [place], [address] Platelet mean volume (Bld) [Entitic vol] 9.6 fL Normal 6.2-12.0 [facility] Comment on above: Performed By: #### L 100.0100, L500.2500 ####[facility] [address] [place], [address] Platelets (Bld) [#/Vol] 270 10*3/uL Normal 150-450 [facility] Comment on above: Performed By: #### L 100.0100, L500.2500 ####[facility] [address] [place], [address] RBC (Bld) [#/Vol] 4.18 10*6/uL Low 4.6-6.2 [facility] Comment on above: Performed By: #### L 100.0100, L500.2500 ####[facility] [address] [place], [address] RDW SD 53.7 fl High 35.1-43.9 [facility] Comment on above: Performed By: #### L 100.0100, L500.2500 ####[facility] [address] [place], [address] WBC (Bld) [#/Vol] 9.7 10*3/uL Normal 4.4-11.0 [facility] Comment on above: Performed By: #### L 100.0100, L500.2500 ####[facility] [address] [place], [address] Basic Metabolic Profile (BMP )on 06-10-2024 BUN/CRE 13.0 RATIO Normal 10-20 [facility] Comment on above: Performed By: #### L 500.2500, L100.0100 ####[facility] [address] [place], [address] Calcium [Mass/Vol] 9.0 mg/dL Normal 7.6-11.0 [facility] Comment on above: Performed By: #### L 500.2500, L100.0100 ####[facility] [address] [place], [address] Chloride [Moles/Vol] 102 mmol/L Normal 98-108 [facility] Comment on above: Performed By: #### L 500.2500, L100.0100 ####[facility] [address] [place], [address] CO2 [Moles/Vol] 23.2 mmol/L Normal 21.0-32.0 [facility] Comment on above: Performed By: #### L 500.2500, L100.0100 ####[facility] [address] [place], [address] Creatinine [Mass/Vol] 0.66 mg/dL Low 0.70-1.20 [facility] Comment on above: Performed By: #### L 500.2500, L100.0100 ####[facility] [address] [place], [address] ECRCL 97.57 ml/min Normal 50-250 [facility] Comment on above: Performed By: #### L 500.2500, L100.0100 ####[facility] [address] [place], [address] GAP 11 Normal 5-15 [facility] Comment on above: Performed By: #### L 500.2500, L100.0100 ####[facility] [address] [place], [address] GFR/1.73 sq M.predicted among non-blacks MDRD (S/P/Bld) [Vol rate/Area] 103 mL/min/{1.73_m2} Normal >60 [facility] Comment on above: Result Comment: mL/m in/1.73m2 CKD-EPI Creatinine Equation (2020) Performed By: #### L 500.2500, L100.0100 ####[facility] [address] [place], [address] Glucose [Mass/Vol] 127 mg/dL High 70-99 [facility] Comment on above: Performed By: #### L 500.2500, L100.0100 ####[facility] [address] [place], [address] Potassium [Moles/Vol] 4.0 mmol/L Normal 3.3-5.1 [facility] Comment on above: Performed By: #### L 500.2500, L100.0100 ####[facility] [address] [place], [address] Sodium [Moles/Vol] 137 mmol/L Normal 133-145 [facility] Comment on above: Performed By: #### L 500.2500, L100.0100 ####[facility] [address] [place], [address] Urea nitrogen [Mass/Vol] 9 mg/dL Normal 4-19 [facility] Comment on above: Performed By: #### L 500.2500, L100.0100 ####[facility] [address] [place], [address] CBC W/Diff, Automatedon 05-28 Absolute Lymph 1.90 X10 3/uL Normal 0.83-4.51 [facility] Comment on above: Performed By: #### L 500.2500, L100.0100 ####[facility] [address] [place], [address] Absolute Neut 12.1 X10 3/uL High 2.0-7.7 [facility] Comment on above: Performed By: #### L 500.2500, L100.0100 ####[facility] [address] [place], [address] Basophils/100 WBC (Bld) 0.3 % Normal 0-1 [facility] Comment on above: Performed By: #### L 500.2500, L100.0100 ####[facility] [address] [place], [address] Eosinophils/100 WBC (Bld) 1.4 % Normal 0-5 [facility] Comment on above: Performed By: #### L 500.2500, L100.0100 ####[facility] [address] [place], [address] Erythrocyte distribution width (RBC) [Ratio] 17.1 % High 11.6-14.6 [facility] Comment on above: Performed By: #### L 500.2500, L100.0100 ####[facility] [address] [place], [address] Hematocrit (Bld) [Volume fraction] 38.1 % Low 40-54 [facility] Comment on above: Performed By: #### L 500.2500, L100.0100 ####[facility] [address] [place], [address] Hemoglobin (Bld) [Mass/Vol] 12.3 g/dL Low 13.0-16.5 [facility] Comment on above: Performed By: #### L 500.2500, L100.0100 ####[facility] [address] [place], [address] IG% 1.400 High 0.0-0.9 [facility] Comment on above: Result Comment: IG% - Immature Granulocytes (promyelocytes, myelocytes andmetamyelocytes) > 1% indicates that a LEFT SHIFT is Present. Performed By: #### L 500.2500, L100.0100 ####[facility] [address] [place], [address] Lymphocytes/100 WBC (Bld) 12.1 % Low 19-41 [facility] Comment on above: Performed By: #### L 500.2500, L100.0100 ####[facility] [address] [place], [address] MCH (RBC) [Entitic mass] 28.8 pg Normal 27.0-32.0 [facility] Comment on above: Performed By: #### L 500.2500, L100.0100 ####[facility] [address] [place], [address] MCHC (RBC) [Mass/Vol] 32.3 g/dL Normal 32-36 [facility] Comment on above: Performed By: #### L 500.2500, L100.0100 ####[facility] [address] [place], [address] MCV (RBC) [Entitic vol] 89.2 fL Normal 80-94 [facility] Comment on above: Performed By: #### L 500.2500, L100.0100 ####[facility] [address] [place], [address] Monocytes/100 WBC (Bld) 8.2 % Normal 0-10 [facility] Comment on above: Performed By: #### L 500.2500, L100.0100 ####[facility] [address] [place], [address] Neutrophils/100 WBC (Bld) 76.6 % High 47-70 [facility] Comment on above: Performed By: #### L 500.2500, L100.0100 ####[facility] [address] [place], [address] Nucleated RBC (Bld) [#/Vol] 0 10*3/uL Normal 0-5 [facility] Comment on above: Performed By: #### L 500.2500, L100.0100 ####[facility] [address] [place], [address] Platelet mean volume (Bld) [Entitic vol] 9.9 fL Normal 6.2-12.0 [facility] Comment on above: Performed By: #### L 500.2500, L100.0100 ####[facility] [address] [place], [address] Platelets (Bld) [#/Vol] 278 10*3/uL Normal 150-450 [facility] Comment on above: Performed By: #### L 500.2500, L100.0100 ####[facility] [address] [place], [address] RBC (Bld) [#/Vol] 4.27 10*6/uL Low 4.6-6.2 [facility] Comment on above: Performed By: #### L 500.2500, L100.0100 ####[facility] [address] [place], [address] RDW SD 55.8 fl High 35.1-43.9 [facility] Comment on above: Performed By: #### L 500.2500, L100.0100 ####[facility] [address] [place], [address] WBC (Bld) [#/Vol] 15.8 10*3/uL High 4.4-11.0 [facility] Comment on above: Performed By: #### L 500.2500, L100.0100 ####[facility] [address] [place], [address] Absolute neutrophil countOrd ered By: Hebert Saavedra on 06-09-2024 Neutrophils (Bld) [#/Vol] 15.9 10*3/uL High 2.0-7.7 [facility] Amorphous sediment detection in urine sediment by light microscopyOrdered By: Hebert Saavedra on 06-09-2024 Amorphous sediment LM Ql (Urine sed) 1+ [facility] Anion gap in Serum or Plasma Ordered By: Hebert Saavedra on 06-09-2024 Anion gap [Moles/Vol] 13 mmol/L 5-15 [facility] BUN/creatinine ratioOrdered By: Hebert Saavedra on 06-09-2024 Urea nitrogen/Creatinine [Mass ratio] 15.6 mg/mg 10-20 [facility] Basophil percentageOrdered B y: Hebert Saavedra on 06-09-2024 Basophils/100 WBC (Bld) 0.5 % 0-1 [facility] Bil[facility] Test strip Ql (U)O rdered By: Hebert Saavedra on 06-09-2024 Bilirubin Ql (U) Negative Negative [facility] Bilirubin, totalOrdered By: Hebert Saavedra on 06-09-2024 Bilirubin [Mass/Vol] 0.29 mg/dL 0.00-1.30 [facility] Blood cultureOrdered By: Hebert Saavedra on 06-09-2024 Bacteria identified Cx Nom (Bld) No growth in 5 days. [facility] Bacteria identified Cx Nom (Bld) No growth in 5 days. [facility] CBC W/Diff, Automatedon 05-28 Absolute Lymph 1.04 X10 3/uL Normal 0.83-4.51 [facility] Comment on above: Performed By: #### L 100.0100, L500.4050 ####[facility] [address] [place], [address] Absolute Neut 15.9 X10 3/uL High 2.0-7.7 [facility] Comment on above: Performed By: #### L 100.0100, L500.4050 ####[facility] [address] [place], [address] Basophils/100 WBC (Bld) 0.5 % Normal 0-1 [facility] Comment on above: Performed By: #### L 100.0100, L500.4050 ####[facility] [address] [place], [address] Eosinophils/100 WBC (Bld) 0.4 % Normal 0-5 [facility] Comment on above: Performed By: #### L 100.0100, L500.4050 ####[facility] [address] [place], [address] Erythrocyte distribution width (RBC) [Ratio] 16.5 % High 11.6-14.6 [facility] Comment on above: Performed By: #### L 100.0100, L500.4050 ####[facility] [address] [place], [address] Hematocrit (Bld) [Volume fraction] 41.3 % Normal 40-54 [facility] Comment on above: Performed By: #### L 100.0100, L500.4050 ####[facility] [address] [place], [address] Hemoglobin (Bld) [Mass/Vol] 13.6 g/dL Normal 13.0-16.5 [facility] Comment on above: Performed By: #### L 100.0100, L500.4050 ####[facility] [address] [place], [address] IG% 0.700 Normal 0.0-0.9 [facility] Comment on above: Result Comment: IG% - Immature Granulocytes (promyelocytes, myelocytes andmetamyelocytes) > 1% indicates that a LEFT SHIFT is Present. Performed By: #### L 100.0100, L500.4050 ####[facility] [address] [place], [address] Lymphocytes/100 WBC (Bld) 5.6 % Low 19-41 [facility] Comment on above: Performed By: #### L 100.0100, L500.4050 ####[facility] [address] [place], [address] MCH (RBC) [Entitic mass] 28.8 pg Normal 27.0-32.0 [facility] Comment on above: Performed By: #### L 100.0100, L500.4050 ####[facility] [address] [place], [address] MCHC (RBC) [Mass/Vol] 32.9 g/dL Normal 32-36 [facility] Comment on above: Performed By: #### L 100.0100, L500.4050 ####[facility] [address] [place], [address] MCV (RBC) [Entitic vol] 87.3 fL Normal 80-94 [facility] Comment on above: Performed By: #### L 100.0100, L500.4050 ####[facility] [address] [place], [address] Monocytes/100 WBC (Bld) 6.9 % Normal 0-10 [facility] Comment on above: Performed By: #### L 100.0100, L500.4050 ####[facility] [address] [place], [address] Neutrophils/100 WBC (Bld) 85.9 % High 47-70 [facility] Comment on above: Performed By: #### L 100.0100, L500.4050 ####[facility] [address] [place], [address] Nucleated RBC (Bld) [#/Vol] 0 10*3/uL Normal 0-5 [facility] Comment on above: Performed By: #### L 100.0100, L500.4050 ####[facility] [address] [place], [address] Platelet mean volume (Bld) [Entitic vol] 9.3 fL Normal 6.2-12.0 [facility] Comment on above: Performed By: #### L 100.0100, L500.4050 ####[facility] [address] [place], [address] Platelets (Bld) [#/Vol] 310 10*3/uL Normal 150-450 [facility] Comment on above: Performed By: #### L 100.0100, L500.4050 ####[facility] [address] [place], [address] RBC (Bld) [#/Vol] 4.73 10*6/uL Normal 4.6-6.2 [facility] Comment on above: Performed By: #### L 100.0100, L500.4050 ####[facility] [address] [place], [address] RDW SD 52.9 fl High 35.1-43.9 [facility] Comment on above: Performed By: #### L 100.0100, L500.4050 ####[facility] [address] [place], [address] WBC (Bld) [#/Vol] 18.5 10*3/uL High 4.4-11.0 [facility] Comment on above: Performed By: #### L 100.0100, L500.4050 ####[facility] [address] [place], [address] Carbon dioxide, total [Moles /volume] in Central venous bloodOrdered By: Hebert Saavedra on 06-09-2024 CO2 [Moles/Vol] 22.0 mmol/L 21.0-32.0 [facility] Chest PA and Lateralon 06-09 Chest PA and Lateral Normal [facility] Chloride assayOrdered By: Adri Saavedra on 06-09-2024 Chloride [Moles/Vol] 103 mmol/L 98-108 [facility] Comprehensive Metabolic Prof ilon 06-09-2024 Albumin [Mass/Vol] 3.6 g/dL Normal 3.4-4.8 [facility] Comment on above: Performed By: #### L 100.0100, L500.4050 ####[facility] [address] [place], [address] Albumin/Globulin [Mass ratio] 1.0 {ratio} Normal 0.9-2.4 [facility] Comment on above: Performed By: #### L 100.0100, L500.4050 ####[facility] [address] [place], [address] ALK PHOS 137 U/L High 40-129 [facility] Comment on above: Performed By: #### L 100.0100, L500.4050 ####[facility] [address] [place], [address] ALT [Catalytic activity/Vol] 21 U/L Normal <=46 [facility] Comment on above: Performed By: #### L 100.0100, L500.4050 ####[facility] [address] [place], [address] AST [Catalytic activity/Vol] 25 U/L Normal <=37 [facility] Comment on above: Performed By: #### L 100.0100, L500.4050 ####[facility] [address] [place], [address] Bilirubin [Mass/Vol] 0.29 mg/dL Normal 0.00-1.30 [facility] Comment on above: Performed By: #### L 100.0100, L500.4050 ####[facility] [address] [place], [address] BUN/CRE 15.6 RATIO Normal 10-20 [facility] Comment on above: Performed By: #### L 100.0100, L500.4050 ####[facility] [address] [place], [address] Calcium [Mass/Vol] 9.3 mg/dL Normal 7.6-11.0 [facility] Comment on above: Performed By: #### L 100.0100, L500.4050 ####[facility] [address] [place], [address] Chloride [Moles/Vol] 103 mmol/L Normal 98-108 [facility] Comment on above: Performed By: #### L 100.0100, L500.4050 ####[facility] [address] [place], [address] CO2 [Moles/Vol] 22.0 mmol/L Normal 21.0-32.0 [facility] Comment on above: Performed By: #### L 100.0100, L500.4050 ####[facility] [address] [place], [address] Creatinine [Mass/Vol] 0.67 mg/dL Low 0.70-1.20 [facility] Comment on above: Performed By: #### L 100.0100, L500.4050 ####[facility] [address] [place], [address] ECRCL 98.85 ml/min Normal 50-250 [facility] Comment on above: Performed By: #### L 100.0100, L500.4050 ####[facility] [address] [place], [address] GAP 13 Normal 5-15 [facility] Comment on above: Performed By: #### L 100.0100, L500.4050 ####[facility] [address] [place], [address] GFR/1.73 sq M.predicted among non-blacks MDRD (S/P/Bld) [Vol rate/Area] 102 mL/min/{1.73_m2} Normal >60 [facility] Comment on above: Result Comment: mL/m in/1.73m2 CKD-EPI Creatinine Equation (2020) Performed By: #### L 100.0100, L500.4050 ####[facility] [address] [place], [address] Globulin (S) [Mass/Vol] 3.7 g/dL Normal 2.2-4.2 [facility] Comment on above: Performed By: #### L 100.0100, L500.4050 ####[facility] [address] [place], [address] Glucose [Mass/Vol] 149 mg/dL High 70-99 [facility] Comment on above: Performed By: #### L 100.0100, L500.4050 ####[facility] [address] [place], [address] Potassium [Moles/Vol] 4.1 mmol/L Normal 3.3-5.1 [facility] Comment on above: Performed By: #### L 100.0100, L500.4050 ####[facility] [address] [place], [address] Sodium [Moles/Vol] 138 mmol/L Normal 133-145 [facility] Comment on above: Performed By: #### L 100.0100, L500.4050 ####[facility] [address] [place], [address] T PROT 7.3 g/dL Normal 5.9-8.4 [facility] Comment on above: Performed By: #### L 100.0100, L500.4050 ####[facility] [address] [place], [address] Urea nitrogen [Mass/Vol] 10 mg/dL Normal 4-19 [facility] Comment on above: Performed By: #### L 100.0100, L500.4050 ####[facility] [address] [place], [address] Emergency Department Summary on 06-09-2024 Emergency Department Summary Normal [facility] Eosinophil percentageOrdered By: Hebert Saavedra on 06-09-2024 Eosinophils/100 WBC (Bld) 0.4 % 0-5 [facility] Epithelial cells.squamous LM Ql (Urine sed)Ordered By: Hebert Saavedra on 06-09-2024 Epithelial cells.squamous LM.HPF (Urine sed) [#/Area] 0 /[HPF] 0-5 [facility] Erythrocyte distribution wid th ratioOrdered By: Hebert Saavedra on 06-09-2024 Erythrocyte distribution width (RBC) [Ratio] 16.5 % High 11.6-14.6 [facility] Erythrocyte distribution wid th standard deviationOrdered By: Hebert Saavedra on 06-09-2024 Erythrocyte distribution width (RBC) [Entitic vol] 52.9 fL High 35.1-43.9 [facility] Estimation of creatinine moon aranceOrdered By: Hebert Saavedra on 06-09-2024 Estimated Creatinine Clearance Calc 98.85 ml/min 50-250 [facility] GFR/1.73 sq M.predicted elias g non-blacks MDRD (S/P/Bld) [Vol rate/Area]Ordered By: Hebert Saavedra on 06-09-2024 Estimated GFR (MDRD) Non-Af Amer 102 >60 [facility] Comment on above: mL/min/1.73m2 CKD-EP I Creatinine Equation (2020) Glucose Ql (U)Ordered By: Adri Saavedra on 06-09-2024 Urine Glucose (UA) Normal mg/dl Normal [facility] H AND P Exam - Hospitaliston 06-09-2024 H&P Exam - Hospitalist Normal [facility] Hematocrit Auto (Bld) [Volum e fraction]Ordered By: Hebert Saavedra on 06-09-2024 Hematocrit (Bld) [Volume fraction] 41.3 % 40-54 [facility] Hemoglobin measurementOrdere d By: Hebert Saavedra on 06-09-2024 Hemoglobin (Bld) [Mass/Vol] 13.6 g/dL 13.0-16.5 [facility] Immature granulocytes/100 WB C Auto (Bld)Ordered By: Hebert Saavedra on 06-09-2024 Immature granulocytes/100 WBC (Bld) 0.700 % 0.0-0.9 [facility] Comment on above: IG% - Immature Granu locytes (promyelocytes, myelocytes and metamyelocytes) > 1% indicates that a LEFT SHIFT is Present. Influenza virus A and B and SARS-CoV-2 (COVID-19) and Respiratory syncytial virus RNAOrdered By: Hebert Saavedra on 06-09-2024 SARS-CoV-2 (COVID-19) RNA IMER+probe Ql (Unsp spec) [facility] Ketones Test strip Ql (U)Ord ered By: Hebert Saavedra on 06-09-2024 Ketones Ql (U) Negative Negative [facility] Laboratory - Chemistry and C hemistry - challengeOrdered By: Hebert Saavedra on 06-09-2024 AST [Catalytic activity/Vol] 25 U/L <38 [facility] Lactic Acidon 06-09-2024 Lactate [Moles/Vol] 2.8 mmol/L Invalid Interpretation Code 0.0-2.0 [facility] Comment on above: Order Comment: Y Result Comment: Crit ical Result(s) Called at: 11:12 by: Dylan Mccabe??Resultsread back by same. Performed By: #### L 503.6005 ####[facility] [address] [place], [place], [id number] Lactic acid measurementOrder ed By: Hebert Quentin on 06-09-2024 Lactate [Moles/Vol] 2.8 mmol/L High 0.0-2.0 [facility] Comment on above: Critical Result(s) C alled at: 11:12 by: Dylan Mccabe Results read back by same. Lymphocytes Auto (Unsp spec) [#/Vol]Ordered By: Hebert Saavedra on 06-09-2024 Lymphocytes (Bld) [#/Vol] 1.04 10*3/uL 0.83-4.51 [facility] Lymphocytes/100 WBC Auto (Un sp spec)Ordered By: Hebert Saavedra on 06-09-2024 Lymphocytes/100 WBC (Bld) 5.6 % Low 19-41 [facility] M100.678on 06-09-2024 M100.678 Pending SARS-CoV-2 (COVID 19) Negative INFLUENZA A Negative INFLUENZA B Negative RSV PCR Negative Normal [facility] Comment on above: Performed By: #### M 100.678 ####[facility] [address] [place], [place], [id number] MCV (mean corpuscular volume ) determinationOrdered By: Hebert Saavedra on 06-09-2024 MCV (RBC) [Entitic vol] 87.3 fL 80-94 [facility] Mean corpuscular hemoglobin (MCH) determinationOrdered By: Hebert Saavedra on 06-09-2024 MCH (RBC) [Entitic mass] 28.8 pg 27.0-32.0 [facility] Mean corpuscular hemoglobin concentration (MCHC) determinationOrdered By: Hebert Saavedra on 06-09-2024 MCHC (RBC) [Mass/Vol] 32.9 g/dL 32-36 [facility] Mean platelet volume determi nationOrdered By: Hebert Saavedra on 06-09-2024 Platelet mean volume (Bld) [Entitic vol] 9.3 fL 6.2-12.0 [facility] Microscopic analysis of urin e for red blood cells (RBC)Ordered By: Hebert Saavedra on 06-09-2024 Microscopic analysis of urine for red blood cells (RBC) 0-5 SEEN /hpf 0-5 [facility] Urine RBC 0-5 SEEN /hpf 0-5 [facility] Monocyte percentageOrdered B y: Hebert Saavedra on 06-09-2024 Monocytes/100 WBC (Bld) 6.9 % 0-10 [facility] Mucus LM Ql (Urine sed)Order ed By: Hebert Saavedra on 06-09-2024 Mucus Ql (Urine sed) 0 SEEN /hpf [facility] Neutrophil percentageOrdered By: Hebert Saavedra on 06-09-2024 Neutrophils/100 WBC (Bld) 85.9 % High 47-70 [facility] Nitrite Test strip Ql (U)Ord ered By: Hebert Saavedra on 06-09-2024 Nitrite Ql (U) Positive High Negative [facility] No Panel InformationOrdered By: Hebert Saavedra on 06-09-2024 25 U/L <38 [facility] Nucleated red blood cell per centageOrdered By: Hebert Saavedra on 06-09-2024 Nucleated RBC/100 WBC (Bld) [Ratio] 0 % 0-5 [facility] Platelet countOrdered By: Adri Saavedra on 06-09-2024 Platelets (Bld) [#/Vol] 310 10*3/uL 150-450 [facility] Potassium (Unsp spec) [Mass/ Vol]Ordered By: Hebert Saavedra on 06-09-2024 Potassium [Moles/Vol] 4.1 mmol/L 3.3-5.1 [facility] Protein Test strip Ql (U)Ord ered By: Hebert Saavedra on 06-09-2024 Protein Ql (U) 30 mg/dl High Negative [facility] RBC Auto (Bld) [#/Vol]Ordere d By: Hebert Saavedra on 06-09-2024 RBC (Bld) [#/Vol] 4.73 10*6/uL 4.6-6.2 [facility] Serum creatinine measurement (mass/volume)Ordered By: Hebert Saavedra on 06-09-2024 Creatinine [Mass/Vol] 0.67 mg/dL Low 0.70-1.20 [facility] Serum globulin measurementOr dered By: Hebert Saavedra on 06-09-2024 Globulin (S) [Mass/Vol] 3.7 g/dL 2.2-4.2 [facility] Serum glucose measurement (m ass/volume)Ordered By: Hebert Saavedra on 06-09-2024 Glucose [Mass/Vol] 149 mg/dL High 70-99 [facility] Serum or plasma alanine orozco otransferase (ALT) measurementOrdered By: Hebertgerman Saavedra on 06-09-2024 ALT [Catalytic activity/Vol] 21 U/L <47 [facility] Serum or plasma albumin marlyn urement (mass/volume)Ordered By: Hebert Saavedra on 06-09-2024 Albumin [Mass/Vol] 3.6 g/dL 3.4-4.8 [facility] Serum or plasma albumin/glob ulin mass ratioOrdered By: Hebertgerman Saavedra 06-09-2024 Albumin/Globulin [Mass ratio] 1.0 {ratio} 0.9-2.4 [facility] Serum or plasma alkaline marisol sphatase measurementOrdered By: Hebertgerman Saavedra 06-09-2024 ALP [Catalytic activity/Vol] 137 U/L High 40-129 [facility] Serum or plasma calcium marlyn urement (mass/volume)Ordered By: Hebert Saavedra on 06-09-2024 Calcium [Mass/Vol] 9.3 mg/dL 7.6-11.0 [facility] Serum or plasma urea nitroge n measurement (mass/volume)Ordered By: Hebert Saavedra on 06-09-2024 Urea nitrogen [Mass/Vol] 10 mg/dL 4-19 [facility] Sodium levelOrdered By: Hebert Saavedra 06-09-2024 Sodium [Moles/Vol] 138 mmol/L 133-145 [facility] Squamous epithelial cells de tection in urine sediment by light microscopyOrdered By: Hebert Saavedra on 06-09-2024 Epithelial cells.squamous LM Ql (Urine sed) 0 SEEN /hpf 0-5 [facility] Total proteinOrdered By: Hebert Saavedra on 06-09-2024 Protein [Mass/Vol] 7.3 g/dL 5.9-8.4 [facility] Urinalysis, Completeon 06-09 BACTERIA 2+ /hpf Normal None Seen [facility] Comment on above: Order Comment: CLEAN CATCH Performed By: #### L 400.0001 ####[facility] [address] [place], [address] EPI,SQUAMOUS 0 SEEN Normal 0-5 [facility] Comment on above: Order Comment: CLEAN CATCH Performed By: #### L 400.0001 ####[facility] [address] [place], [address] RBC 0-5 SEEN Normal [address] [place] [address] Comment on above: Order Comment: CLEAN CATCH Performed By: #### L 400.0001 ####[facility] [address] [place], [address] WBC >100 SEEN Normal [address] [place] [address] Comment on above: Order Comment: CLEAN CATCH Performed By: #### L 400.0001 ####[facility] [address] [place], [address] AMORPHOUS 1+ Normal [facility] Comment on above: Order Comment: CLEAN CATCH Performed By: #### L 400.0001 ####[facility] [address] [place], [address] Mucus Ql (Urine sed) 0 SEEN Normal [facility] Comment on above: Order Comment: CLEAN CATCH Performed By: #### L 400.0001 ####[facility] [address] [place], [address] Urine blood detectionOrdered By: Hebert Saavedra on 06-09-2024 Urine Occult Blood 150 /ul High Negative [facility] Urine clarityOrdered By: Hebert Saavedra on 06-09-2024 Clarity (U) Cloudy Clear [facility] Urine color determinationOrd ered By: Hebert Saavedra on 06-09-2024 Color (U) Yellow Yellow [facility] Urine cultureOrdered By: Hebert Saavedra on 06-09-2024 Bacteria identified Cx Nom (U) Klebsiella oxytoca Abnormal [facility] Bacteria identified Cx Nom (U) Staphylococcus aureus Abnormal [facility] Urine glucose detectionOrder ed By: Hebert Saavedra on 06-09-2024 Glucose Ql (U) Normal mg/dl Normal [facility] Urine leukocyte esterase det ection by dipstickOrdered By: Hebert Saavedra on 06-09-2024 Leukocyte esterase Test strip Ql (U) 500 /ul High Negative [facility] Urine pHOrdered By: Hebert porter on 06-09-2024 pH (U) 7.0 [pH] 5.0 - 8.0 [facility] Urine sediment bacteria coun t by microscopy (number/high power field)Ordered By: Hebert Saavedra on 06-09-2024 Bacteria LM.HPF (Urine sed) [#/Area] 2 /[HPF] None Seen [facility] Urine specific gravity measu rementOrdered By: Hebert Saavedra on 06-09-2024 Specific gravity (U) [Rel density] 1.010 1.002-1.030 [facility] Urine urobilinogen measureme ntOrdered By: Hebert Saavedra on 06-09-2024 Urobilinogen Ql (U) Normal mg/dl Normal [facility] Urobilinogen Ql (U)Ordered B y: Hebert Saavedra on 06-09-2024 Urine Urobilinogen Normal mg/dl Normal [facility] White blood cell (WBC) count Ordered By: Hebert Saavedra on 06-09-2024 WBC (Bld) [#/Vol] 18.5 10*3/uL High 4.4-11.0 [facility] White blood cell countOrdere d By: Hebert Saavedra on 06-09-2024 Urine WBC >100 SEEN /hpf 0-5 [facility] White blood cell count >100 SEEN /hpf 0-5 [facility] Cerv Spine 4 or 5 Viewson Cerv Spine 4 or 5 Views Normal [facility] Orthopedic Visit Reporton Orthopedic Visit Report Normal [facility] 36on 03-31-2024 36 Letter faxed to number provided. Successful fax confirmation scanned into media. Normal [facility] 36 Letter created, please fax Normal [facility] 36 Patient need letter created for orders month SPT changes and care for any clogged SPT, per Jennifer. Fax order to [phone]. Please advise. Normal [facility] 36 Name of caller: Jennifer Contact phone number: [phone] Relationship to Patient: [facility] Health Care Provider: Dr Casas Practice: Uro Chief Complaint/Reason for Call: Requesting a VERBAL ORDER Super Pubic Catheter Monthly Change. Jennifer: [phone] Patient changed insurance this is why the new Order is being requested. Best time of day caller can be reached: any Patient advised that office/PCP has 24-48 business hours to return their call: No Normal [facility] Prealbumin [id number] Prealbumin [Mass/Vol] 22 mg/dL Normal [facility] Comment on above: Result Comment: Perf ormed at: - [facility] [place] [id number] Director: Rayo Wilkinson PhD, Phone: [phone] Performed By: #### L 100.9604, Z468.5823, U5232.4995, R960.6021 ####[facility] [address] [place], [place], [id number] Albumin to globulin ratioOrd ered By: Kemi Rubio on 03-24-2024 Albumin/Globulin [Mass ratio] 0.7 {ratio} Low 0.9-2.4 [facility] Bilirubin, totalOrdered By: Kemi Rubio on 03-24-2024 Bilirubin [Mass/Vol] 0.30 mg/dL 0.20-1.00 [facility] Comment on above: For patients on eltr ombopag therapy, use of Dimension [place] TBIL is not recommended. Blood urea nitrogen (BUN)/cr eatinine ratioOrdered By: Kemi Rubio on 03-24-2024 Urea nitrogen/Creatinine [Mass ratio] 20.9 mg/mg High 10-20 [facility] CBC-Complete Blood Cnt No Di ffon 03-24-2024 Erythrocyte distribution width (RBC) [Ratio] 17.0 % High 11.6-14.6 [facility] Comment on above: Performed By: #### L 100.0500, L500.4050, L3300.6400, L501.9985 ####[facility] [address] [place], [address] Hematocrit (Bld) [Volume fraction] 42.9 % Normal 40-54 [facility] Comment on above: Performed By: #### L 100.0500, L500.4050, L3300.6400, L501.9985 ####[facility] [address] [place], [address] Hemoglobin (Bld) [Mass/Vol] 13.4 g/dL Normal 13.0-16.5 [facility] Comment on above: Performed By: #### L 100.0500, L500.4050, L3300.6400, L501.9985 ####[facility] [address] [place], [address] MCH (RBC) [Entitic mass] 28.2 pg Normal 27.0-32.0 [facility] Comment on above: Performed By: #### L 100.0500, L500.4050, L3300.6400, L501.9985 ####[facility] [address] [place], [address] MCHC (RBC) [Mass/Vol] 31.2 g/dL Low 32-36 [facility] Comment on above: Performed By: #### L 100.0500, L500.4050, L3300.6400, L501.9985 ####[facility] [address] [place], [address] MCV (RBC) [Entitic vol] 90.1 fL Normal 80-94 [facility] Comment on above: Performed By: #### L 100.0500, L500.4050, L3300.6400, L501.9985 ####[facility] [address] [place], [address] Platelet mean volume (Bld) [Entitic vol] 10.0 fL Normal 6.2-12.0 [facility] Comment on above: Performed By: #### L 100.0500, L500.4050, L3300.6400, L501.9985 ####[facility] [address] [place], [address] Platelets (Bld) [#/Vol] 343 10*3/uL Normal 150-450 [facility] Comment on above: Performed By: #### L 100.0500, L500.4050, L3300.6400, L501.9985 ####[facility] [address] [place], [address] RBC (Bld) [#/Vol] 4.76 10*6/uL Normal 4.6-6.2 [facility] Comment on above: Performed By: #### L 100.0500, L500.4050, L3300.6400, L501.9985 ####[facility] [address] [place], [address] RDW SD 56.4 fl High 35.1-43.9 [facility] Comment on above: Performed By: #### L 100.0500, L500.4050, L3300.6400, L501.9985 ####[facility] [address] [place], [address] WBC (Bld) [#/Vol] 5.8 10*3/uL Normal 4.4-11.0 [facility] Comment on above: Performed By: #### L 100.0500, L500.4050, L3300.6400, L501.9985 ####[facility] [address] [place], [address] Carbon dioxide measurementOr dered By: Kemi Rubio on 03-24-2024 CO2 [Moles/Vol] 27.0 mmol/L 21.0-32.0 [facility] Chloride measurementOrdered By: Kemi Rubio on 03-24-2024 Chloride [Moles/Vol] 106 mmol/L 98-107 [facility] Comprehensive Metabolic Prof ilon 03-24-2024 Albumin [Mass/Vol] 2.8 g/dL Low 3.2-5.0 [facility] Comment on above: Performed By: #### L 100.0500, L500.4050, L3300.6400, L501.9985 ####[facility] [address] [place], [address] Albumin/Globulin [Mass ratio] 0.7 {ratio} Low 0.9-2.4 [facility] Comment on above: Performed By: #### L 100.0500, L500.4050, L3300.6400, L501.9985 ####[facility] [address] [place], [address] ALK P 141 U/L High 45-117 [facility] Comment on above: Performed By: #### L 100.0500, L500.4050, L3300.6400, L501.9985 ####[facility] [address] [place], [address] ALT [Catalytic activity/Vol] 38 U/L Normal 16-61 [facility] Comment on above: Performed By: #### L 100.0500, L500.4050, L3300.6400, L501.9985 ####[facility] [address] [place], [address] AST [Catalytic activity/Vol] 23 U/L Normal 15-37 [facility] Comment on above: Performed By: #### L 100.0500, L500.4050, L3300.6400, L501.9985 ####[facility] [address] [place], [address] Bilirubin [Mass/Vol] 0.30 mg/dL Normal 0.20-1.00 [facility] Comment on above: Result Comment: For patients on eltrombopag therapy, use of Dimension [place] TBIL is not recommended. Performed By: #### L 100.0500, L500.4050, L3300.6400, L501.9985 ####[facility] [address] [place], [address] BUN/CRE 20.9 RATIO High 10-20 [facility] Comment on above: Performed By: #### L 100.0500, L500.4050, L3300.6400, L501.9985 ####[facility] [address] [place], [address] CA,Total 9.2 mg/dL Normal 8.5-10.1 [facility] Comment on above: Performed By: #### L 100.0500, L500.4050, L3300.6400, L501.9985 ####[facility] [address] [place], [address] Chloride [Moles/Vol] 106 mmol/L Normal 98-107 [facility] Comment on above: Performed By: #### L 100.0500, L500.4050, L3300.6400, L501.9985 ####[facility] [address] [place], [address] CO2 [Moles/Vol] 27.0 mmol/L Normal 21.0-32.0 [facility] Comment on above: Performed By: #### L 100.0500, L500.4050, L3300.6400, L501.9985 ####[facility] [address] [place], [address] Creatinine [Mass/Vol] 0.62 mg/dL Low 0.70-1.30 [facility] Comment on above: Result Comment: The validity of the calculated GFR GFRAA in patients over70 years has not been determined. Clinical correlation isessential. Performed By: #### L 100.0500, L500.4050, L3300.6400, L501.9985 ####[facility] [address] [place], [address] EST GFR - AA 165 mL/min Normal >60 [facility] Comment on above: Result Comment: Afri can Pakistani GFR Calc Performed By: #### L 100.0500, L500.4050, L3300.6400, L501.9985 ####[facility] [address] [place], [address] GAP 4 Low 5-15 [facility] Comment on above: Performed By: #### L 100.0500, L500.4050, L3300.6400, L501.9985 ####[facility] [address] [place], [address] GFR/1.73 sq M.predicted among non-blacks MDRD (S/P/Bld) [Vol rate/Area] 137 mL/min/{1.73_m2} Normal >60 [facility] Comment on above: Result Comment: Non- GFR Calc Performed By: #### L 100.0500, L500.4050, L3300.6400, L501.9985 ####[facility] [address] [place], [address] Globulin (S) [Mass/Vol] 4.3 g/dL High 2.2-4.2 [facility] Comment on above: Performed By: #### L 100.0500, L500.4050, L3300.6400, L501.9985 ####[facility] [address] [place], [address] Glucose [Mass/Vol] 114 mg/dL High 74-106 [facility] Comment on above: Result Comment: Fast ing Glucose result from 100 to 125 mg/dLsuggests IMPAIRED HOMEOSTASIS per A.D.A. criteria. Performed By: #### L 100.0500, L500.4050, L3300.6400, L501.9985 ####[facility] [address] [place], [address] Potassium [Moles/Vol] 4.3 mmol/L Normal 3.5-5.1 [facility] Comment on above: Performed By: #### L 100.0500, L500.4050, L3300.6400, L501.9985 ####[facility] [address] [place], [address] Sodium [Moles/Vol] 137 mmol/L Normal 136-145 [facility] Comment on above: Performed By: #### L 100.0500, L500.4050, L3300.6400, L501.9985 ####[facility] [address] [place], [address] T PROT 7.1 g/dL Normal 6.4-8.2 [facility] Comment on above: Performed By: #### L 100.0500, L500.4050, L3300.6400, L501.9985 ####[facility] [address] [place], [address] Urea nitrogen [Mass/Vol] 13 mg/dL Normal 7-18 [facility] Comment on above: Performed By: #### L 100.0500, L500.4050, L3300.6400, L501.9985 ####[facility] [address] [place], [address] Erythrocyte distribution wid th ratioOrdered By: Kemi Rubio on 03-24-2024 Erythrocyte distribution width (RBC) [Ratio] 17.0 % High 11.6-14.6 [facility] Erythrocyte distribution wid th standard deviationOrdered By: Kemi Rubio on 03-24-2024 Erythrocyte distribution width (RBC) [Entitic vol] 56.4 fL High 35.1-43.9 [facility] Estimated glomerular filtrat ion rate (GFR) AmericanOrdered By: Kemi Rubio on 03-24-2024 Estimated GFR (MDRD) Amer 165 mL/min >60 [facility] Comment on above: GFR Calc Glomerular filtration rate ( GFR) estimationOrdered By: Kemi Rubio on 03-24-2024 Estimated GFR (MDRD) Non-Af Amer 137 mL/min >60 [facility] Comment on above: Non- GFR Calc Glucose measurementOrdered B y: Kemi Rubio on 03-24-2024 Glucose [Mass/Vol] 114 mg/dL High 74-106 [facility] Comment on above: Fasting Glucose resu lt from 100 to 125 mg/dL suggests IMPAIRED HOMEOSTASIS per A.D.A. criteria. Hematocrit Auto (Bld) [Volum e fraction]Ordered By: Kemi Rubio on 03-24-2024 Hematocrit (Bld) [Volume fraction] 42.9 % 40-54 [facility] Hemoglobin A1con 03-24-2024 HbA1c (Bld) [Mass fraction] 6.5 % High 3.8-5.6 [facility] Comment on above: Result Comment: Norm al < 5.7 % Prediabetic 5.7 - 6.4 % Diabetic >or= 6.5 % Please note range changes. Performed By: #### L 100.0500, L500.4050, L3300.3490, L501.9985 ####[facility] [address] [place], [address] Hemoglobin A1c percentageOrd ered By: Kemi Rubio on 03-24-2024 HbA1c (Bld) [Mass fraction] 6.5 % High 3.8-5.6 [facility] Comment on above: Normal < 5.7 % Predi abetic 5.7 - 6.4 % Diabetic >or= 6.5 % Please note range changes. Hemoglobin measurementOrdere d By: Kemi Rubio on 03-24-2024 Hemoglobin (Bld) [Mass/Vol] 13.4 g/dL 13.0-16.5 [facility] Laboratory - Chemistry and C hemistry - challengeOrdered By: Kemi Rubio on 03-24-2024 AST [Catalytic activity/Vol] 23 U/L 15-37 [facility] MCV (mean corpuscular volume ) determinationOrdered By: Kemi Rubio on 03-24-2024 MCV (RBC) [Entitic vol] 90.1 fL 80-94 [facility] Mean corpuscular hemoglobin (MCH) determinationOrdered By: Kemi Rubio on 03-24-2024 MCH (RBC) [Entitic mass] 28.2 pg 27.0-32.0 [facility] Mean corpuscular hemoglobin concentration (MCHC) determinationOrdered By: Kemi Rubio on 03-24-2024 MCHC (RBC) [Mass/Vol] 31.2 g/dL Low 32-36 [facility] Mean platelet volume determi nationOrdered By: Kemi Rubio on 03-24-2024 Platelet mean volume (Bld) [Entitic vol] 10.0 fL 6.2-12.0 [facility] Platelet countOrdered By: St selam Rubio on 03-24-2024 Platelets (Bld) [#/Vol] 343 10*3/uL 150-450 [facility] Potassium measurementOrdered By: Kemi Rubio on 03-24-2024 Potassium [Moles/Vol] 4.3 mmol/L 3.5-5.1 [facility] RBC Auto (Bld) [#/Vol]Ordere d By: Kemi Rubio on 03-24-2024 RBC (Bld) [#/Vol] 4.76 10*6/uL 4.6-6.2 [facility] Serum anion gap measurementO rdered By: Kemi Rubio on 03-24-2024 Anion gap [Moles/Vol] 4 mmol/L Low 5-15 [facility] Serum globulin measurementOr dered By: Kemi Rubio on 03-24-2024 Globulin (S) [Mass/Vol] 4.3 g/dL High 2.2-4.2 [facility] Serum or plasma alanine orozco otransferase (ALT) measurementOrdered By: Kemi Rubio on 03-24-2024 ALT [Catalytic activity/Vol] 38 U/L 16-61 [facility] Serum or plasma albumin marlyn urement (mass/volume)Ordered By: Kemi Rubio on 03-24-2024 Albumin [Mass/Vol] 2.8 g/dL Low 3.2-5.0 [facility] Serum or plasma alkaline marisol sphatase measurementOrdered By: Kemi Rubio on 03-24-2024 ALP [Catalytic activity/Vol] 141 U/L High 45-117 [facility] Serum or plasma calcium marlyn urement (mass/volume)Ordered By: Kemi Rubio on 03-24-2024 Calcium [Mass/Vol] 9.2 mg/dL 8.5-10.1 [facility] Serum or plasma creatinine m easurement (mass/volume)Ordered By: Kemi Rubio on 03-24-2024 Creatinine [Mass/Vol] 0.62 mg/dL Low 0.70-1.30 [facility] Comment on above: The validity of the calculated GFR & GFRAA in patients over 70 years has not been determined. Clinical correlation is essential. Serum or plasma urea nitroge n measurement (mass/volume)Ordered By: Kemi Rubio on 03-24-2024 Urea nitrogen [Mass/Vol] 13 mg/dL 7-18 [facility] Serum prealbumin measurement by immunoassayOrdered By: Kemi Rubio on 03-24-2024 Prealbumin [Mass/Vol] 22 mg/dL [facility] Comment on above: Performed at: [address] [id number] Director: Rayo Wilkinson PhD, Phone: [phone] Sodium levelOrdered By: Darryl Rubio on 03-24-2024 Sodium [Moles/Vol] 137 mmol/L 136-145 [facility] Total proteinOrdered By: John Rubio on 03-24-2024 Protein [Mass/Vol] 7.1 g/dL 6.4-8.2 [facility] White blood cell (WBC) count Ordered By: Kemi Rubio on 03-24-2024 WBC (Bld) [#/Vol] 5.8 10*3/uL 4.4-11.0 [facility] 36on 01-29-2024 36 Name of caller: Radha coronel Contact phone number: [phone] Relationship to Patient: [facility] Provider: Dr Casas Practice: Urology Chief Complaint/Reason for Call: Jaqueline stated that a voicemail was left on her managers phone and was calling back. Tried to call back line, no answer. Please call Jaqueline back to advise. Best time of day caller can be reached: Any Patient advised that office/PCP has 24-48 business hours to return their call: N/A Normal [facility] Urine Cultureon 01-27-2024 URC Normal [facility] Comment on above: Performed By: #### L 400.0001, M100.2200 ####[facility] [address] [place], [place], [address] 36on 01-26-2024 36 Letter faxed to [facility] - ATTN: Jaqueline Your fax has been successfully sent to [facility] at [phone]. 01/26/2024 7:53:04 AM Conversion Record Successfully created cover sheet. Type: application/vnd.openx mlformats-officedocum ent.wordprocessingml. document G3 to TIFF #1: Success [image/g3] (48ms) GhostScript TIFF #1: Success [image/tiff] (190ms) Resubmitted: [application/postscri pt] Word Automation #1: Success [image/tiff] (1534ms) ([id number]:WORKSR V2) 01/26/2024 7:52:58 AM Transmission Record Sent to [phone] with remote ID [phone] Result: (0) Success Page record: 1 - 3 Elapsed time: 03:18 on channel 48 01/26/2024 7:52:47 AM Conversion Record [[id number]] Type: application/postscrip t G3 to TIFF #1: Success [image/g3] (64ms) GhostScript TIFF #1: Success [image/tiff] (379ms) ([id number]:WORKSR V1) 01/26/2024 7:52:40 AM Origin Record Created by [facility] 36on 01-25-2024 36 A letter has been created for home health orders. Please fax to home health agency. Thank you [facility] 36 Patient's spouse called and wanted to let us know that patient is in the ER at [facility] due to SPT being clogged. Home care saw patient this AM but could not change patient's catheter as they do not have orders to change SPT or flush it. Spoke with home care nurse Janell with [facility]. Janell states patient has been an established patient with them for a long time and the SPT is new. Currently they do not have orders to manage SPT. Per spouse they saw Dr. Casas on Thursday and orders were going to be written. Orders need created and faxed. Contact information included below. [facility]. [phone]. ATTN: Jaqueline [facility] [address] [facility] 36 S: Patient's home nurse Rod spoke with [facility] nurse regarding no urine in catheter B: Onset of symptoms/concern Thursday A: Rod, nurse with [facility], states that patient does not have urine [...] used: Urinary Catheter (e.g., Benson) Symptoms and Pweqxgait-SEDUR-YY Normal [facility] 36 Fiorella LVM stating she needs a verbal order stating the size of the SPT tube and frequency. Called Fiorella back and advised per last OV note that pt uses a #16fr SPT and it is to be changed monthly. Fiorella verbalized understanding. Normal [facility] Basic Metabolic Profile (BMP )on 01-25-2024 BUN/CRE 26.6 RATIO High 10-20 [facility] Comment on above: Performed By: #### L 100.0100, L500.2500 ####[facility] [address] [place], [address] CA,Total 9.3 mg/dL Normal 8.5-10.1 [facility] Comment on above: Performed By: #### L 100.0100, L500.2500 ####[facility] [address] [place], [address] Chloride [Moles/Vol] 109 mmol/L High 98-107 [facility] Comment on above: Performed By: #### L 100.0100, L500.2500 ####[facility] [address] [place], [address] CO2 [Moles/Vol] 25.0 mmol/L Normal 21.0-32.0 [facility] Comment on above: Performed By: #### L 100.0100, L500.2500 ####[facility] [address] [place], [address] Creatinine [Mass/Vol] 0.68 mg/dL Low 0.70-1.30 [facility] Comment on above: Result Comment: The validity of the calculated GFR GFRAA in patients over70 years has not been determined. Clinical correlation isessential. Performed By: #### L 100.0100, L500.2500 ####[facility] [address] [place], [address] EST GFR - AA 150 mL/min Normal >60 [facility] Comment on above: Result Comment: Afri can Pakistani GFR Calc Performed By: #### L 100.0100, L500.2500 ####[facility] [address] [place], [address] GAP 5 Normal 5-15 [facility] Comment on above: Performed By: #### L 100.0100, L500.2500 ####[facility] [address] [place], [address] GFR/1.73 sq M.predicted among non-blacks MDRD (S/P/Bld) [Vol rate/Area] 124 mL/min/{1.73_m2} Normal >60 [facility] Comment on above: Result Comment: Non- GFR Calc Performed By: #### L 100.0100, L500.2500 ####[facility] [address] [place], [address] Glucose [Mass/Vol] 127 mg/dL High 74-106 [facility] Comment on above: Result Comment: Fast ing Glucose result greater than or equal to 126 mg/dLsuggests DIABETES MELLITUS per A.D.A. criteria. Performed By: #### L 100.0100, L500.2500 ####[facility] [address] [place], [address] Potassium [Moles/Vol] 4.0 mmol/L Normal 3.5-5.1 [facility] Comment on above: Performed By: #### L 100.0100, L500.2500 ####[facility] [address] [place], [address] Sodium [Moles/Vol] 139 mmol/L Normal 136-145 [facility] Comment on above: Performed By: #### L 100.0100, L500.2500 ####[facility] [address] [place], [address] Urea nitrogen [Mass/Vol] 18 mg/dL Normal 7-18 [facility] Comment on above: Performed By: #### L 100.0100, L500.2500 ####[facility] [address] [place], [address] CBC W/Diff, Automatedon 10-2 8-2023 Absolute Lymph 2.14 X10 3/uL Normal 0.83-4.51 [facility] Comment on above: Performed By: #### L 100.0100, L500.2500 ####[facility] [address] [place], [address] Absolute Neut 6.7 X10 3/uL Normal 2.0-7.7 [facility] Comment on above: Performed By: #### L 100.0100, L500.2500 ####[facility] [address] [place], [address] Basophils/100 WBC (Bld) 0.8 % Normal 0-1 [facility] Comment on above: Performed By: #### L 100.0100, L500.2500 ####[facility] [address] [place], [address] Eosinophils/100 WBC (Bld) 3.8 % Normal 0-5 [facility] Comment on above: Performed By: #### L 100.0100, L500.2500 ####[facility] [address] [place], [address] Erythrocyte distribution width (RBC) [Ratio] 16.5 % High 11.6-14.6 [facility] Comment on above: Performed By: #### L 100.0100, L500.2500 ####[facility] [address] [place], [address] Hematocrit (Bld) [Volume fraction] 42.7 % Normal 40-54 [facility] Comment on above: Performed By: #### L 100.0100, L500.2500 ####[facility] [address] [place], [address] Hemoglobin (Bld) [Mass/Vol] 13.8 g/dL Normal 13.0-16.5 [facility] Comment on above: Performed By: #### L 100.0100, L500.2500 ####[facility] [address] [place], [address] IG% 0.600 Normal 0.0-0.9 [facility] Comment on above: Result Comment: IG% - Immature Granulocytes (promyelocytes, myelocytes andmetamyelocytes) > 1% indicates that a LEFT SHIFT is Present. Performed By: #### L 100.0100, L500.2500 ####[facility] [address] [place], [address] Lymphocytes/100 WBC (Bld) 20.8 % Normal 19-41 [facility] Comment on above: Performed By: #### L 100.0100, L500.2500 ####[facility] [address] [place], [address] MCH (RBC) [Entitic mass] 28.2 pg Normal 27.0-32.0 [facility] Comment on above: Performed By: #### L 100.0100, L500.2500 ####[facility] [address] [place], [address] MCHC (RBC) [Mass/Vol] 32.3 g/dL Normal 32-36 [facility] Comment on above: Performed By: #### L 100.0100, L500.2500 ####[facility] [address] [place], [address] MCV (RBC) [Entitic vol] 87.3 fL Normal 80-94 [facility] Comment on above: Performed By: #### L 100.0100, L500.2500 ####[facility] [address] [place], [address] Monocytes/100 WBC (Bld) 8.8 % Normal 0-10 [facility] Comment on above: Performed By: #### L 100.0100, L500.2500 ####[facility] [address] [place], [address] Neutrophils/100 WBC (Bld) 65.2 % Normal 47-70 [facility] Comment on above: Performed By: #### L 100.0100, L500.2500 ####[facility] [address] [place], [address] Nucleated RBC (Bld) [#/Vol] 0 10*3/uL Normal 0-5 [facility] Comment on above: Performed By: #### L 100.0100, L500.2500 ####[facility] [address] [place], [address] Platelet mean volume (Bld) [Entitic vol] 9.5 fL Normal 6.2-12.0 [facility] Comment on above: Performed By: #### L 100.0100, L500.2500 ####[facility] [address] [place], [address] Platelets (Bld) [#/Vol] 389 10*3/uL Normal 150-450 [facility] Comment on above: Performed By: #### L 100.0100, L500.2500 ####[facility] [address] [place], [address] RBC (Bld) [#/Vol] 4.89 10*6/uL Normal 4.6-6.2 [facility] Comment on above: Performed By: #### L 100.0100, L500.2500 ####[facility] [address] [place], [address] RDW SD 52.1 fl High 35.1-43.9 [facility] Comment on above: Performed By: #### L 100.0100, L500.2500 ####[facility] [address] [place], [address] WBC (Bld) [#/Vol] 10.3 10*3/uL Normal 4.4-11.0 [facility] Comment on above: Performed By: #### L 100.0100, L500.2500 ####[facility] [address] [place], [address] Emergency Department Summary on 01-25-2024 Emergency Department Summary Normal [facility] Urinalysis, Completeon 01-24 BACTERIA 2+ /hpf Normal None Seen [facility] Comment on above: Order Comment: COLLE CTOR TO SPECIFY Performed By: #### L 400.0001, M100.2200 ####[facility] [address] [place], [address] CAST,WBC 0-5 SEEN Normal None Seen [facility] Comment on above: Order Comment: COLLE CTOR TO SPECIFY Performed By: #### L 400.0001, M100.2200 ####[facility] [address] [place], [address] Mucus Ql (Urine sed) 1+ /hpf Normal [facility] Comment on above: Order Comment: COLLE CTOR TO SPECIFY Performed By: #### L 400.0001, M100.2200 ####[facility] [address] [place], [address] RBC 10-25 SEEN Normal 0-5 [facility] Comment on above: Order Comment: LACIE CTOR TO SPECIFY Performed By: #### L 400.0001, M100.2200 ####[facility] [address] [place], [address] WBC 25-50 SEEN Normal 0-5 [facility] Comment on above: Order Comment: LACIE CTOR TO SPECIFY Performed By: #### L 400.0001, M100.2200 ####[facility] [address] [place], [address] Office Visiton 01-22-2024 Follow-up visit [id number] Jorge Covington 1955 M Date Provider Department Center 01/22/2024 RIKKI JIMENEZ [facility] URO None No family history on file Level of Service:17667 [place] OFFICE/OUTPATIENT ESTABLISHED LOW MDM 20 MIN Reason for Visit and Comments: Urinary Retention [120520] - SPT placement 12/11/23, Pt states they went to ED twice since then having SPT changed Normal [facility] Progress Noteon 01-22-2024 Progress Note Called N, left detailed VM to return call to office regarding SPT orders. Normal [facility] Progress Note Rikki Casas MD 01/22/2024 [...] on 12/11/2023. The patient apparently went into [facility] on 12/25/23 (POD#14) because the catheter [...] discharge or drainage around the catheter. 16 Iranian suprapubic tube is in place. Musculoskeletal: General: [...] perform exchange of the suprapubic cystostomy (16 Iranian) on a monthly basis Rikki Casas MD 01/22/24 5:[address] [facility] Emergency Department Summary on 01-13-2024 Emergency Department Summary [facility] Emergency Department Summary on 12-25-2023 Emergency Department Summary [facility] 36on 12-18-2023 36 S: Patient's spoke with [facility] nurse regarding catheter leaking where it is [...] used: Urinary Catheter (e.g., Benson) Symptoms and Zbjebkgns-ZDHFO-DQ [facility] Op Noteon 12-11-2023 Op Note OPERATIVE [...] of the trocar was withdrawn. A 14 Iranian catheter was advanced through the trocar. The [...] to the recovery area in stable condition. [facility] 36on 12-07-2023 36 error Normal [facility] Wound Ctr History AND Physic william 11-23-2023 Wound Ctr History & Physical Normal [facility] Prealbumin [id number] Prealbumin [Mass/Vol] 26 mg/dL Normal [facility] Comment on above: Result Comment: Perf ormed at: - [facility] [address] [id number] Director: Rayo Wilkinson PhD, Phone: [phone] Performed By: #### L 7276.2420, L638.2600, Y748.0087, L100.0102 ####[facility] [address] [place], [address] CBC W/Diff, Automatedon 08-2 -2023 Absolute Lymph 1.98 X10 3/uL Normal 0.83-4.51 [facility] Comment on above: Performed By: #### L 3300.6400, L501.9985, L500.4050, L100.0100 ####[facility] [address] [place], [address] Absolute Neut 4.2 X10 3/uL Normal 2.0-7.7 [facility] Comment on above: Performed By: #### L 3300.6400, L501.9985, L500.4050, L100.0100 ####[facility] [address] [place], [address] Basophils/100 WBC (Bld) 0.7 % Normal 0-1 [facility] Comment on above: Performed By: #### L 3300.6400, L501.9985, L500.4050, L100.0100 ####[facility] [address] [place], [address] Eosinophils/100 WBC (Bld) 2.6 % Normal 0-5 [facility] Comment on above: Performed By: #### L 3300.6400, L501.9985, L500.4050, L100.0100 ####[facility] [address] [place], [address] Erythrocyte distribution width (RBC) [Ratio] 15.5 % High 11.6-14.6 [facility] Comment on above: Performed By: #### L 3300.6400, L501.9985, L500.4050, L100.0100 ####[facility] [address] [place], [address] Hematocrit (Bld) [Volume fraction] 42.4 % Normal 40-54 [facility] Comment on above: Performed By: #### L 3300.6400, L501.9985, L500.4050, L100.0100 ####[facility] [address] [place], [address] Hemoglobin (Bld) [Mass/Vol] 13.3 g/dL Normal 13.0-16.5 [facility] Comment on above: Performed By: #### L 3300.6400, L501.9985, L500.4050, L100.0100 ####[facility] [address] [place], [address] IG% 1.000 High 0.0-0.9 [facility] Comment on above: Result Comment: IG% - Immature Granulocytes (promyelocytes, myelocytes andmetamyelocytes) > 1% indicates that a LEFT SHIFT is Present. Performed By: #### L 3300.6400, L501.9985, L500.4050, L100.0100 ####[facility] [address] [place], [address] Lymphocytes/100 WBC (Bld) 27.6 % Normal 19-41 [facility] Comment on above: Performed By: #### L 3300.6400, L501.9985, L500.4050, L100.0100 ####[facility] [address] [place], [address] MCH (RBC) [Entitic mass] 28.3 pg Normal 27.0-32.0 [facility] Comment on above: Performed By: #### L 3300.6400, L501.9985, L500.4050, L100.0100 ####[facility] [address] [place], [address] MCHC (RBC) [Mass/Vol] 31.4 g/dL Low 32-36 [facility] Comment on above: Performed By: #### L 3300.6400, L501.9985, L500.4050, L100.0100 ####[facility] [address] [place], [address] MCV (RBC) [Entitic vol] 90.2 fL Normal 80-94 [facility] Comment on above: Performed By: #### L 3300.6400, L501.9985, L500.4050, L100.0100 ####[facility] [address] [place], [address] Monocytes/100 WBC (Bld) 9.5 % Normal 0-10 [facility] Comment on above: Performed By: #### L 3300.6400, L501.9985, L500.4050, L100.0100 ####[facility] [address] [place], [address] Neutrophils/100 WBC (Bld) 58.6 % Normal 47-70 [facility] Comment on above: Performed By: #### L 3300.6400, L501.9985, L500.4050, L100.0100 ####[facility] [address] [place], [address] Nucleated RBC (Bld) [#/Vol] 0 10*3/uL Normal 0-5 [facility] Comment on above: Performed By: #### L 3300.6400, L501.9985, L500.4050, L100.0100 ####[facility] [address] [place], [address] Platelet mean volume (Bld) [Entitic vol] 9.8 fL Normal 6.2-12.0 [facility] Comment on above: Performed By: #### L 3300.6400, L501.9985, L500.4050, L100.0100 ####[facility] [address] [place], [address] Platelets (Bld) [#/Vol] 338 10*3/uL Normal 150-450 [facility] Comment on above: Performed By: #### L 3300.6400, L501.9985, L500.4050, L100.0100 ####[facility] [address] [place], [address] RBC (Bld) [#/Vol] 4.70 10*6/uL Normal 4.6-6.2 [facility] Comment on above: Performed By: #### L 3300.6400, L501.9985, L500.4050, L100.0100 ####[facility] [address] [place], [address] RDW SD 51.0 fl High 35.1-43.9 [facility] Comment on above: Performed By: #### L 3300.6400, L501.9985, L500.4050, L100.0100 ####[facility] [address] [place], [address] WBC (Bld) [#/Vol] 7.2 10*3/uL Normal 4.4-11.0 [facility] Comment on above: Performed By: #### L 3300.6400, L501.9985, L500.4050, L100.0100 ####[facility] [address] [place], [address] Comprehensive Metabolic [facility] 11-18-2023 Albumin [Mass/Vol] 2.7 g/dL Low 3.2-5.0 [facility] Comment on above: Performed By: #### L 3300.6400, L501.9985, L500.4050, L100.0100 ####[facility] [address] [place], [address] Albumin/Globulin [Mass ratio] 0.6 {ratio} Low 0.9-2.4 [facility] Comment on above: Performed By: #### L 3300.6400, L501.9985, L500.4050, L100.0100 ####[facility] [address] [place], [address] ALK P 140 U/L High 45-117 [facility] Comment on above: Performed By: #### L 3300.6400, L501.9985, L500.4050, L100.0100 ####[facility] [address] [place], [address] ALT [Catalytic activity/Vol] 24 U/L Normal 16-61 [facility] Comment on above: Performed By: #### L 3300.6400, L501.9985, L500.4050, L100.0100 ####[facility] [address] [place], [address] AST [Catalytic activity/Vol] 12 U/L Low 15-37 [facility] Comment on above: Performed By: #### L 3300.6400, L501.9985, L500.4050, L100.0100 ####[facility] [address] [place], [address] Bilirubin [Mass/Vol] 0.10 mg/dL Low 0.20-1.00 [facility] Comment on above: Result Comment: For patients on eltrombopag therapy, use of Dimension [place] TBIL is not recommended. Performed By: #### L 3300.6400, L501.9985, L500.4050, L100.0100 ####[facility] [address] [place], [address] BUN/CRE 27.9 RATIO High 10-20 [facility] Comment on above: Performed By: #### L 3300.6400, L501.9985, L500.4050, L100.0100 ####[facility] [address] [place], [address] CA,Total 8.8 mg/dL Normal 8.5-10.1 [facility] Comment on above: Performed By: #### L 3300.6400, L501.9985, L500.4050, L100.0100 ####[facility] [address] [place], [address] Chloride [Moles/Vol] 111 mmol/L High 98-107 [facility] Comment on above: Performed By: #### L 3300.6400, L501.9985, L500.4050, L100.0100 ####[facility] [address] [place], [address] CO2 [Moles/Vol] 26.0 mmol/L Normal 21.0-32.0 [facility] Comment on above: Performed By: #### L 3300.6400, L501.9985, L500.4050, L100.0100 ####[facility] [address] [place], [address] Creatinine [Mass/Vol] 0.61 mg/dL Low 0.70-1.30 [facility] Comment on above: Result Comment: The validity of the calculated GFR GFRAA in patients over70 years has not been determined. Clinical correlation isessential. Performed By: #### L 3300.6400, L501.9985, L500.4050, L100.0100 ####[facility] [address] [place], [address] EST GFR - AA 170 mL/min Normal >60 [facility] Comment on above: Result Comment: Afri can Pakistani GFR Calc Performed By: #### L 3300.6400, L501.9985, L500.4050, L100.0100 ####[facility] [address] [place], [address] GAP 3 Low 5-15 [facility] Comment on above: Performed By: #### L 3300.6400, L501.9985, L500.4050, L100.0100 ####[facility] [address] [place], [address] GFR/1.73 sq M.predicted among non-blacks MDRD (S/P/Bld) [Vol rate/Area] 140 mL/min/{1.73_m2} Normal >60 [facility] Comment on above: Result Comment: Non- GFR Calc Performed By: #### L 3300.6400, L501.9985, L500.4050, L100.0100 ####[facility] [address] [place], [address] Globulin (S) [Mass/Vol] 4.2 g/dL Normal 2.2-4.2 [facility] Comment on above: Performed By: #### L 3300.6400, L501.9985, L500.4050, L100.0100 ####[facility] [address] [place], [address] Glucose [Mass/Vol] 144 mg/dL High 74-106 [facility] Comment on above: Result Comment: Fast ing Glucose result greater than or equal to 126 mg/dLsuggests DIABETES MELLITUS per A.D.A. criteria. Performed By: #### L 3300.6400, L501.9985, L500.4050, L100.0100 ####[facility] [address] [place], [address] Potassium [Moles/Vol] 4.1 mmol/L Normal 3.5-5.1 [facility] Comment on above: Performed By: #### L 3300.6400, L501.9985, L500.4050, L100.0100 ####[facility] [address] [place], [address] Sodium [Moles/Vol] 140 mmol/L Normal 136-145 [facility] Comment on above: Performed By: #### L 3300.6400, L501.9985, L500.4050, L100.0100 ####[facility] [address] [place], [address] T PROT 6.9 g/dL Normal 6.4-8.2 [facility] Comment on above: Performed By: #### L 3300.6400, L501.9985, L500.4050, L100.0100 ####[facility] [address] [place], [address] Urea nitrogen [Mass/Vol] 17 mg/dL Normal 7-18 [facility] Comment on above: Performed By: #### L 3300.6400, L501.9985, L500.4050, L100.0100 ####[facility] [address] [place], [address] Hemoglobin A1con 11-18-2023 HbA1c (Bld) [Mass fraction] 6.0 % High 3.8-5.6 [facility] Comment on above: Result Comment: Norm al < 5.7 % Prediabetic 5.7 - 6.4 % Diabetic >or= 6.5 % Please note range changes. Performed By: #### L 3300.6400, L501.9985, L500.4050, L100.0100 ####[facility] [address] [place], [address] Consultation - Infectious Dx on 11-04-2023 Consultation - Infectious Dx Normal [facility] Office Visiton 10-23-2023 Follow-up visit [id number] CésarJorge 1955 M Date Provider Department Center 10/23/2023 [id number]-WTLFXMSRIKKI CASAS [facility] U[facility] None No family history on file Level of Service:03430 MT OFFICE/OUTPATIENT NEW LOW MDM 30 MINUTES Reason for Visit and Comments: Urine Leakage [403] - Worsening incontinence - pt's states has frequency, but pt denies any other pain, issues, distress or discomfort currently Normal [facility] Progress Noteon 10-23-2023 Progress Note Rikki [...] [place] [facility] [place] aspects of the procedure, along with the pros & cons of intervention and the potential associated risks & complications have been discussed with the patient. Questions have been answered, and informed consent has been obtained. Rikki Casas MD 10/23/23 8:[address] [facility] Anaerobic cultureOrdered By: Kemi Rubio on 04-06-2023 Bacteria identified Anaer cx Nom (Unsp spec) No anaerobic bacteria isolated. [facility] Bacteria identified Anaer cx Nom (Unsp spec) No anaerobic bacteria isolated. [facility] Bacteria identified Cx Nom ( Wound)Ordered By: Kemi Rubio on 04-06-2023 Wound Culture Staphylococcus aureus [facility] Wound Culture Corynebacterium striatum [facility] Wound Culture Enterococcus faecalis [facility] Wound Culture Staphylococcus aureus [facility] Wound Culture Corynebacterium striatum [facility] Wound Culture Enterococcus faecalis [facility] Gram stain for investigation of transfusion reactionOrdered By: Kemi Ramiro on 04-06-2023 Microscopic observation Gram stain Nom (Unsp spec) [facility] Microscopic observation Gram stain Nom (Unsp spec) [facility] Anaerobic cultureOrdered By: Kemi Ramiro on 11-11-2022 Bacteria identified Anaer cx Nom (Unsp spec) No anaerobic bacteria isolated. [facility] Bacteria identified Cx Nom ( Wound)Ordered By: Kemi Ramiro on 11-11-2022 Wound Culture Staphylococcus aureus [facility] Gram stain for investigation of transfusion reactionOrdered By: Kemi Ramiro on 11-11-2022 Microscopic observation Gram stain Nom (Unsp spec) [facility] Anaerobic cultureOrdered By: Kemi Ramiro on 11-10-2022 Bacteria identified Anaer cx Nom (Unsp spec) No anaerobic bacteria isolated. [facility] Bacteria identified Cx Nom ( Wound)Ordered By: Kemi Ramiro on 11-10-2022 Wound Culture Staphylococcus aureus [facility] Gram stain for investigation of transfusion reactionOrdered By: Kemi Ramiro on 11-10-2022 Microscopic observation Gram stain Nom (Unsp spec) [facility] Basophil percentageOrdered B y: Gera Smith on 10-17-2022 Chloride [Moles/Vol] 107 mmol/L 98-107 [facility] Glucose [Mass/Vol] 100 mg/dL 74-106 [facility] Comment on above: Fasting Glucose resu lt from 100 to 125 mg/dL suggests IMPAIRED HOMEOSTASIS per A.D.A. criteria. Potassium [Moles/Vol] 3.7 mmol/L 3.5-5.1 [facility] Sodium [Moles/Vol] 139 mmol/L 136-145 [facility] WBC (Bld) [#/Vol] 8.2 10*3/uL 4.4-11.0 [facility] Blood erythrocytes count (nu mber/volume)Ordered By: Gera Smith on 10-17-2022 RBC (Bld) [#/Vol] 5.03 10*6/uL 4.6-6.2 [facility] Blood hemoglobin measurement (mass/volume)Ordered By: Gera Smith on 10-17-2022 Hemoglobin (Bld) [Mass/Vol] 13.9 g/dL 13.0-16.5 [facility] Blood platelet mean volumeOr dered By: Gera Smith on 10-17-2022 Platelet mean volume (Bld) [Entitic vol] 9.8 fL 6.2-12.0 [facility] Determination of erythrocyte mean corpuscular volume (MCV)Ordered By: Gera Smith on 10-17-2022 MCV (RBC) [Entitic vol] 87.3 fL 80-94 [facility] Hematocrit Auto (Bld) [Volum e fraction]Ordered By: Gera Smith on 10-17-2022 Hematocrit (Bld) [Volume fraction] 43.9 % 40-54 [facility] Laboratory - Chemistry and C hemistry - challengeOrdered By: Gera Smith on 10-17-2022 CO2 [Moles/Vol] 28.0 mmol/L 21.0-32.0 [facility] Urea nitrogen/Creatinine [Mass ratio] 14.2 mg/mg 10-20 [facility] - Hematology and Cell countsOrdered By: Gera Smith on 10-17-2022 Erythrocyte distribution width (RBC) [Entitic vol] 58.8 fL 35.1-43.9 [facility] Erythrocyte distribution width (RBC) [Ratio] 18.6 % 11.6-14.6 [facility] MCH (RBC) [Entitic mass] 27.6 pg 27.0-32.0 [facility] MCHC Auto (RBC) [Mass/Vol]Or dered By: Gera Smith on 10-17-2022 MCHC (RBC) [Mass/Vol] 31.7 g/dL 32-36 [facility] No Panel InformationOrdered By: Gera Smith on 10-17-2022 Estimated GFR (MDRD) Amer 187 mL/min >60 [facility] Comment on above: GFR Calc Estimated GFR (MDRD) Non-Af Amer 154 mL/min >60 [facility] Comment on above: Non- GFR Calc Thyroid Stimulating Hormone (TSH) 0.12 uIU/mL 0.358-3.74 [facility] Platelets bldOrdered By: Wendy Smith on 10-17-2022 Platelets (Bld) [#/Vol] 415 10*3/uL 150-450 [facility] Serum or plasma calcium marlyn urement (mass/volume)Ordered By: Gera Smith on 10-17-2022 Calcium [Mass/Vol] 9.3 mg/dL 8.5-10.1 [facility] Serum or plasma creatinine m easurement (mass/volume)Ordered By: Gera Smith on 10-17-2022 Creatinine [Mass/Vol] 0.56 mg/dL 0.70-1.30 [facility] Comment on above: The validity of the calculated GFR & GFRAA in patients over 70 years has not been determined. Clinical correlation is essential. Serum or plasma urea nitroge n measurement (mass/volume)Ordered By: Gera Smith on 10-17-2022 Urea nitrogen [Mass/Vol] 8 mg/dL 7-18 [facility] Thin prep Papanicolaou smear with manual screeningOrdered By: Gera Smith on 10-17-2022 Thin prep Papanicolaou smear with manual screening 4 5-15 [facility] Anaerobic cultureOrdered By: Kemi Rubio on 07-18-2022 Bacteria identified Anaer cx Nom (Unsp spec) No anaerobic bacteria isolated. [facility] Bacteria identified Cx Nom ( Wound)Ordered By: Kemi Rubio on 07-16-2022 Wound Culture Staphylococcus aureus [facility] Wound Culture Positive [facility] Gram stain for investigation of transfusion reactionOrdered By: Kemi Ramiro on 07-15-2022 Microscopic observation Gram stain Nom (Unsp spec) [facility] Anaerobic cultureOrdered By: Kemigriselda Rubio on 07-14-2022 Bacteria identified Anaer cx Nom (Unsp spec) No anaerobic bacteria isolated. [facility] Bacteria identified Cx Nom ( Wound)Ordered By: Kemi Ramiro on 07-14-2022 Wound Culture Staphylococcus aureus [facility] Wound Culture Positive [facility] Gram stain for investigation of transfusion reactionOrdered By: Kemi Rubio on 07-14-2022 Microscopic observation Gram stain Nom (Unsp spec) [facility] Fungus cultureOrdered By: Dr Cinthia Messina on 05-29-2022 Fungus identified Cx Nom (Unsp spec) [facility] Fungus stainOrdered By: Dr. Messina on 05-29-2022 Fungus identified Fungus stain Nom (Unsp spec) [facility] Bacteria identified Cx Nom ( Wound)Ordered By: Dr. Messina on 05-07-2022 Wound Culture Staphylococcus aureus [facility] Wound Culture Corynebacterium striatum [facility] Absolute lymphocyte countOrd ered By: Dr. Singh on 05-02-2022 Lymphocytes Auto (Unsp spec) [#/Vol] 1.72 10*3/uL 0.83-4.51 [facility] Anaerobic cultureOrdered By: Dr. Messina on 05-02-2022 Bacteria identified Anaer cx Nom (Unsp spec) [facility] Basophil percentageOrdered B y: Dr. Singh on 05-02-2022 Basophils/100 WBC (Bld) 0.6 % 0-1 [facility] Chloride [Moles/Vol] 99 mmol/L 98-107 [facility] Eosinophils/100 WBC (Bld) 2.3 % 0-5 [facility] Glucose [Mass/Vol] 115 mg/dL 74-106 [facility] Comment on above: Fasting Glucose resu lt from 100 to 125 mg/dL suggests IMPAIRED HOMEOSTASIS per A.D.A. criteria. Neutrophils (Bld) [#/Vol] 7.8 10*3/uL 2.0-7.7 [facility] Neutrophils/100 WBC (Bld) 69.8 % 47-70 [facility] Potassium [Moles/Vol] 4.2 mmol/L 3.5-5.1 [facility] Sodium [Moles/Vol] 134 mmol/L 136-145 [facility] WBC (Bld) [#/Vol] 11.1 10*3/uL 4.4-11.0 [facility] Blood erythrocytes count (nu mber/volume)Ordered By: Dr. Singh on 05-02-2022 RBC (Bld) [#/Vol] 4.86 10*6/uL 4.6-6.2 [facility] Blood hemoglobin measurement (mass/volume)Ordered By: Dr. Singh on 05-02-2022 Hemoglobin (Bld) [Mass/Vol] 13.3 g/dL 13.0-16.5 [facility] Blood lymphocytes/100 leukoc ytesOrdered By: Dr. Singh on 05-02-2022 Lymphocytes/100 WBC (Bld) 15.5 % 19-41 [facility] Blood monocytes/100 leukocyt esOrdered By: Dr. Singh on 05-02-2022 Monocytes/100 WBC (Bld) 10.8 % 0-10 [facility] Blood platelet mean volumeOr dered By: Dr. Singh on 05-02-2022 Platelet mean volume (Bld) [Entitic vol] 9.7 fL 6.2-12.0 [facility] Determination of erythrocyte mean corpuscular volume (MCV)Ordered By: Dr. Singh on 05-02-2022 MCV (RBC) [Entitic vol] 85.0 fL 80-94 [facility] Hematocrit Auto (Bld) [Volum e fraction]Ordered By: Dr. Singh on 05-02-2022 Hematocrit (Bld) [Volume fraction] 41.3 % 40-54 [facility] - Chemistry and C hemistry - challengeOrdered By: Dr. Singh on 05-02-2022 CO2 [Moles/Vol] 28.0 mmol/L 21.0-32.0 [facility] Urea nitrogen/Creatinine [Mass ratio] 22.5 mg/mg 10-20 [facility] - Hematology and Cell countsOrdered By: Dr. Singh on 05-02-2022 Erythrocyte distribution width (RBC) [Entitic vol] 53.9 fL 35.1-43.9 [facility] Erythrocyte distribution width (RBC) [Ratio] 17.6 % 11.6-14.6 [facility] Immature granulocytes/100 WBC (Bld) 1.000 % 0.0-0.9 [facility] Comment on above: IG% - Immature Granu locytes (promyelocytes, myelocytes and metamyelocytes) > 1% indicates that a LEFT SHIFT is Present. MCH (RBC) [Entitic mass] 27.4 pg 27.0-32.0 [facility] Nucleated RBC/100 WBC (Bld) [Ratio] 0 % 0-5 [facility] MCHC Auto (RBC) [Mass/Vol]Or dered By: Dr. Singh on 05-02-2022 MCHC (RBC) [Mass/Vol] 32.2 g/dL 32-36 [facility] No Panel InformationOrdered By: Dr. Singh on 05-02-2022 Estimated Creatinine Clearance Calc 99.19 ml/min [facility] Estimated GFR (MDRD) Amer 153 mL/min >60 [facility] Comment on above: GFR Calc Estimated GFR (MDRD) Non-Af Amer 127 mL/min >60 [facility] Comment on above: Non- GFR Calc Platelets bldOrdered By: Dr. Singh on 05-02-2022 Platelets (Bld) [#/Vol] 375 10*3/uL 150-450 [facility] Serum or plasma calcium marlyn urement (mass/volume)Ordered By: Dr. Singh on 05-02-2022 Calcium [Mass/Vol] 9.5 mg/dL 8.5-10.1 [facility] Serum or plasma creatinine m easurement (mass/volume)Ordered By: Dr. Singh on 05-02-2022 Creatinine [Mass/Vol] 0.67 mg/dL 0.70-1.30 [facility] Comment on above: The validity of the calculated GFR & GFRAA in patients over 70 years has not been determined. Clinical correlation is essential. Serum or plasma urea nitroge n measurement (mass/volume)Ordered By: Dr. Singh on 05-02-2022 Urea nitrogen [Mass/Vol] 15 mg/dL 7-18 [facility] Thin prep Papanicolaou smear with manual screeningOrdered By: Dr. Singh on 05-02-2022 Thin prep Papanicolaou smear with manual screening 7 5-15 [facility] Bacteria identified Cx Nom ( Wound)Ordered By: Dr. Messina on 05-01-2022 Wound Culture Staphylococcus aureus [facility] Wound Culture Corynebacterium striatum [facility] Wound Culture Staphylococcus aureus [facility] Wound Culture Corynebacterium striatum [facility] Basophil percentageOrdered B y: Dr. Messina on 04-29-2022 Chloride [Moles/Vol] 102 mmol/L 98-107 [facility] Glucose [Mass/Vol] 89 mg/dL 74-106 [facility] Potassium [Moles/Vol] 4.3 mmol/L 3.5-5.1 [facility] Sodium [Moles/Vol] 137 mmol/L 136-145 [facility] WBC (Bld) [#/Vol] 6.2 10*3/uL 4.4-11.0 [facility] Blood erythrocytes count (nu mber/volume)Ordered By: Dr. Messina on 04-29-2022 RBC (Bld) [#/Vol] 4.38 10*6/uL 4.6-6.2 [facility] Blood hemoglobin measurement (mass/volume)Ordered By: Dr. Messina on 04-29-2022 Hemoglobin (Bld) [Mass/Vol] 11.9 g/dL 13.0-16.5 [facility] Blood platelet mean volumeOr dered By: Dr. Messina on 04-29-2022 Platelet mean volume (Bld) [Entitic vol] 9.5 fL 6.2-12.0 [facility] Determination of erythrocyte mean corpuscular volume (MCV)Ordered By: Dr. Messina on 04-29-2022 MCV (RBC) [Entitic vol] 85.8 fL 80-94 [facility] Gram stain for investigation of transfusion reactionOrdered By: Dr. Messina on 04-29-2022 Microscopic observation Gram stain Nom (Unsp spec) [facility] Microscopic observation Gram stain Nom (Unsp spec) [facility] Hematocrit Auto (Bld) [Volum e fraction]Ordered By: Dr. Messina on 04-29-2022 Hematocrit (Bld) [Volume fraction] 37.6 % 40-54 [facility] Laboratory - Chemistry and C hemistry - challengeOrdered By: Dr. Messina on 04-29-2022 CO2 [Moles/Vol] 29.0 mmol/L 21.0-32.0 [facility] Urea nitrogen/Creatinine [Mass ratio] 18.1 mg/mg 10-20 [facility] Laboratory - Hematology and Cell countsOrdered By: Dr. Messina on 04-29-2022 Erythrocyte distribution width (RBC) [Entitic vol] 55.2 fL 35.1-43.9 [facility] Erythrocyte distribution width (RBC) [Ratio] 17.6 % 11.6-14.6 [facility] MCH (RBC) [Entitic mass] 27.2 pg 27.0-32.0 [facility] MCHC Auto (RBC) [Mass/Vol]Or dered By: Dr. Messina on 04-29-2022 MCHC (RBC) [Mass/Vol] 31.6 g/dL 32-36 [facility] No Panel InformationOrdered By: Dr. Messina on 04-29-2022 Estimated Creatinine Clearance Calc 151.04 ml/min [facility] Estimated GFR (MDRD) Amer 247 mL/min >60 [facility] Comment on above: GFR Calc Estimated GFR (MDRD) Non-Af Amer 204 mL/min >60 [facility] Comment on above: Non- GFR Calc Platelets bldOrdered By: Dr. Messina on 04-29-2022 Platelets (Bld) [#/Vol] 352 10*3/uL 150-450 [facility] Serum or plasma calcium marlyn urement (mass/volume)Ordered By: Dr. Messina on 04-29-2022 Calcium [Mass/Vol] 8.8 mg/dL 8.5-10.1 [facility] Serum or plasma creatinine m easurement (mass/volume)Ordered By: Dr. Messina on 04-29-2022 Creatinine [Mass/Vol] 0.44 mg/dL 0.70-1.30 [facility] Comment on above: The validity of the calculated GFR & GFRAA in patients over 70 years has not been determined. Clinical correlation is essential. Serum or plasma transthyreti n measurement (mass/volume)Ordered By: Dr. Messina on 04-29-2022 Prealbumin [Mass/Vol] 13.4 mg/dL 20.0-40.0 [facility] Serum or plasma urea nitroge n measurement (mass/volume)Ordered By: Dr. Messina on 04-29-2022 Urea nitrogen [Mass/Vol] 8 mg/dL 7-18 [facility] Thin prep Papanicolaou smear with manual screeningOrdered By: Dr. Messina on 04-29-2022 Thin prep Papanicolaou smear with manual screening 6 5-15 [facility] No Panel InformationOrdered By: Dr. Bruce on 04-28-2022 Thyroid Stimulating Hormone (TSH) 0.63 uIU/mL 0.358-3.74 [facility] Clostridium difficile detect ion by polymerase chain reactionOrdered By: Cristy Verma on 04-04-2022 C. difficile DNA IMER+probe Ql (Unsp spec) [facility] Bacteria identified Anaer cx Nom (Unsp spec)Ordered By: Cristy Verma on 03-06-2022 Anaerobic Culture Clostridium perfringens [facility] Bacteria identified Cx Nom ( Wound)Ordered By: Cristy Verma on 03-02-2022 Wound Culture Escherichia coli [facility] Wound Culture Staphylococcus aureus [facility] Gram stain for investigation of transfusion reactionOrdered By: Cristy Verma on 02-28-2022 Microscopic observation Gram stain Nom (Unsp spec) [facility] Absolute lymphocyte countOrd ered By: Dr. Basurto on 02-08-2022 Lymphocytes Auto (Unsp spec) [#/Vol] 2.11 10*3/uL 0.83-4.51 [facility] Basophil percentageOrdered B y: Dr. Basurto on 02-08-2022 Basophil percentage 10-25 SEEN /hpf 0-5 [facility] Basophils/100 WBC (Bld) 0.3 % 0-1 [facility] Bilirubin [Mass/Vol] 0.40 mg/dL 0.20-1.00 [facility] Comment on above: For patients on eltr ombopag therapy, use of Dimension [place] TBIL is not recommended. Chloride [Moles/Vol] 103 mmol/L 98-107 [facility] Eosinophils/100 WBC (Bld) 0.3 % 0-5 [facility] Glucose [Mass/Vol] 107 mg/dL 74-106 [facility] Comment on above: Fasting Glucose resu lt from 100 to 125 mg/dL suggests IMPAIRED HOMEOSTASIS per A.D.A. criteria. Neutrophils (Bld) [#/Vol] 13.7 10*3/uL 2.0-7.7 [facility] Neutrophils/100 WBC (Bld) 78.6 % 47-70 [facility] Potassium [Moles/Vol] 3.4 mmol/L 3.5-5.1 [facility] Protein [Mass/Vol] 7.2 g/dL 6.4-8.2 [facility] Sodium [Moles/Vol] 138 mmol/L 136-145 [facility] WBC (Bld) [#/Vol] 17.4 10*3/uL 4.4-11.0 [facility] Bilirubin Test strip Ql (U)O rdered By: Dr. Basurto on 02-08-2022 Bilirubin Ql (U) Negative Negative [facility] Blood erythrocytes count (nu mber/volume)Ordered By: Dr. Basurto on 02-08-2022 RBC (Bld) [#/Vol] 4.47 10*6/uL 4.6-6.2 [facility] Blood hemoglobin measurement (mass/volume)Ordered By: Dr. Basurto on 02-08-2022 Hemoglobin (Bld) [Mass/Vol] 12.7 g/dL 13.0-16.5 [facility] Blood lymphocytes/100 leukoc ytesOrdered By: Dr. Basurto on 02-08-2022 Lymphocytes/100 WBC (Bld) 12.1 % 19-41 [facility] Blood monocytes/100 leukocyt esOrdered By: Dr. Basurto on 02-08-2022 Monocytes/100 WBC (Bld) 7.6 % 0-10 [facility] Blood platelet mean volumeOr dered By: Dr. Basurto on 02-08-2022 Platelet mean volume (Bld) [Entitic vol] 9.9 fL 6.2-12.0 [facility] Determination of erythrocyte mean corpuscular volume (MCV)Ordered By: Dr. Basurto on 02-08-2022 MCV (RBC) [Entitic vol] 88.6 fL 80-94 [facility] Hematocrit Auto (Bld) [Volum e fraction]Ordered By: Dr. Basurto on 02-08-2022 Hematocrit (Bld) [Volume fraction] 39.6 % 40-54 [facility] Ketones Test strip Ql (U)Ord ered By: Dr. Basurto on 02-08-2022 Ketones Ql (U) 5 mg/dl Negative [facility] Laboratory - Chemistry and C hemistry - challengeOrdered By: Dr. Basurto on 02-08-2022 ALP [Catalytic activity/Vol] 98 U/L 45-117 [facility] ALT [Catalytic activity/Vol] 16 U/L 16-61 [facility] CO2 [Moles/Vol] 28.0 mmol/L 21.0-32.0 [facility] Globulin (S) [Mass/Vol] 5.2 g/dL 2.2-4.2 [facility] Urea nitrogen/Creatinine [Mass ratio] 12.8 mg/mg 10-20 [facility] - Hematology and Cell countsOrdered By: Dr. Basurto on 02-08-2022 Erythrocyte distribution width (RBC) [Entitic vol] 48.9 fL 35.1-43.9 [facility] Erythrocyte distribution width (RBC) [Ratio] 14.9 % 11.6-14.6 [facility] Immature granulocytes/100 WBC (Bld) 1.100 % 0.0-0.9 [facility] Comment on above: IG% - Immature Granu locytes (promyelocytes, myelocytes and metamyelocytes) > 1% indicates that a LEFT SHIFT is Present. MCH (RBC) [Entitic mass] 28.4 pg 27.0-32.0 [facility] Nucleated RBC/100 WBC (Bld) [Ratio] 0 % 0-5 [facility] MCHC Auto (RBC) [Mass/Vol]Or dered By: Dr. Basurto on 02-08-2022 MCHC (RBC) [Mass/Vol] 32.1 g/dL 32-36 [facility] Mucus LM Ql (Urine sed)Order ed By: Dr. Basurto on 02-08-2022 Mucus Ql (Urine sed) 0 SEEN /hpf [facility] Nitrite Test strip Ql (U)Ord ered By: Dr. Basurto on 02-08-2022 Nitrite Ql (U) Negative Negative [facility] No Panel InformationOrdered By: Dr. Basurto on 02-08-2022 Estimated Creatinine Clearance Calc 107.19 ml/min [facility] Estimated GFR (MDRD) Amer 166 mL/min >60 [facility] Comment on above: GFR Calc Estimated GFR (MDRD) Non-Af Amer 137 mL/min >60 [facility] Comment on above: Non- GFR Calc Platelets bldOrdered By: Dr. Basurto on 02-08-2022 Platelets (Bld) [#/Vol] 410 10*3/uL 150-450 [facility] Protein Test strip Ql (U)Ord ered By: Dr. Basurto on 02-08-2022 Protein Ql (U) 30 mg/dl Negative [facility] Serum or plasma albumin marlyn urement (mass/volume)Ordered By: Dr. Basurto on 02-08-2022 Albumin [Mass/Vol] 2.0 g/dL 3.2-5.0 [facility] Serum or plasma albumin/glob ulin mass ratioOrdered By: Dr. Basurto on 02-08-2022 Albumin/Globulin [Mass ratio] 0.4 {ratio} 0.9-2.4 [facility] Serum or plasma calcium marlyn urement (mass/volume)Ordered By: Dr. Basurto on 02-08-2022 Calcium [Mass/Vol] 9.0 mg/dL 8.5-10.1 [facility] Serum or plasma creatinine m easurement (mass/volume)Ordered By: Dr. Basurto on 02-08-2022 Creatinine [Mass/Vol] 0.62 mg/dL 0.70-1.30 [facility] Comment on above: The validity of the calculated GFR & GFRAA in patients over 70 years has not been determined. Clinical correlation is essential. Serum or plasma urea nitroge n measurement (mass/volume)Ordered By: Dr. Basurto on 02-08-2022 Urea nitrogen [Mass/Vol] 8 mg/dL 7-18 [facility] Squamous epithelial cells de tection in urine sediment by light microscopyOrdered By: Dr. Basurto on 02-08-2022 Epithelial cells.squamous LM Ql (Urine sed) 0 SEEN /hpf 0-5 [facility] Thin prep Papanicolaou smear with manual screeningOrdered By: Dr. Basurto on 02-08-2022 Thin prep Papanicolaou smear with manual screening 12 U/L 15-37 [facility] Thin prep Papanicolaou smear with manual screening 7 5-15 [facility] Urine blood detectionOrdered By: Dr. Basurto on 02-08-2022 RBC Ql (U) 50 /ul Negative [facility] RBC Ql (U) 0 SEEN /hpf 0-5 [facility] Urine clarityOrdered By: Dr. Basurto on 02-08-2022 Clarity (U) Cloudy Clear [facility] Urine color determinationOrd ered By: Dr. Basurto on 02-08-2022 Color (U) Gilma Yellow [facility] Urine glucose detectionOrder ed By: Dr. Basurto on 02-08-2022 Glucose Ql (U) Normal mg/dl Normal [facility] Urine leukocyte esterase det ection by dipstickOrdered By: Dr. Basurto on 02-08-2022 Leukocyte esterase Test strip Ql (U) 100 /ul Negative [facility] Urine pHOrdered By: Dr. Jarod vee on 02-08-2022 pH (U) 8.0 [pH] 5.0 - 8.0 [facility] Urine sediment bacteria coun t by microscopy (number/high power field)Ordered By: Dr. Basurto on 02-08-2022 Bacteria LM.HPF (Urine sed) [#/Area] 4 /[HPF] None Seen [facility] Urine specific gravity measu rementOrdered By: Dr. Basurto on 02-08-2022 Specific gravity (U) [Rel density] 1.010 1.002-1.030 [facility] Urobilinogen Auto test strip Ql (U)Ordered By: Dr. Basurto on 02-08-2022 Urobilinogen Ql (U) 8 mg/dl Normal [facility] CASE MANAGEMon 02-02-2019 CASE MANAGEM HNO ID: [id number] Author: Florence (Rn) VIKTOR Mullins Service: Care Management Author Type: Registered Nurse Type: Care Mgt Progress Note Filed: 02/02/2019 12:05 PM Note Text: CARE MANAGEMENT DISCHARGE NOTE SERVICE DATE: 02/02/2019 SERVICE TIME: 12:01 PM LOS: 11 days Admission Date: 01/22/2019 DISCHARGE ARRANGEMENT (list agency and phone number) [facility] facility: Was an expedited discharge program used? No Provider: [facility] CAREGIVER ASSESSMENT: Caregiver is ready, willing and able to meet the patient's needs as recommended by the inter-professional team? Yes Patient's transition needs and plan for meeting these needs: SNF at [facility] Does the patient have an acute stroke diagnosis, or has the patient had a stroke during this admission? No HANDOFF COMMUNICATION: Primary Care Physician: Name: Dr Brian Zimmerman Bedside nurse. Patient and Dasia. Summary of care sent to PCP Dr Zimmerman and [facility] TRANSPORTATION ARRANGEMENTS: Mode of Transportation: Ambulance Transportation Agency and Phone #: [facility] ( [facility] ) [phone] / [phone]. Date of Trip: 02/02/2019 Type of Service: BLS Non-emergency Is Patient Medicaid Pending: No Discussion of financial coverage occurred with Patient and Spouse . [employer] Location: room 264 Destination: [facility] Financial Care Management Responsibility: None Estimated Charge: 0 Approving Tunnel Heading Supervisor: NA ADDITIONAL CONTACT RESOURCES: NA Discharge written for patient to go to [facility]. Pt and agreeable. Precert obtained. Ambulance transport arranged per 's request. Discussed with her possibility of out of pocket expense after billed to insurance. Ambulance scheduled for 3 PM fruit picker. SIGNATURE: Florence Mullins RN PATIENT NAME: Jroge Covington DATE: February 02, 2019 TIME: 12:01 PM PAGER/CONTACT #: [phone] [facility] CASE MANAGEM HNO ID: [id number] Author: Florence (Rn) VIKTOR Mullins Service: Care Management Author Type: Registered Nurse Type: Care Mgt Progress Note Filed: 02/02/2019 11:08 AM Note Text: CARE MANAGEMENT PROGRESS NOTE SERVICE DATE: 02/02/2019 SERVICE TIME: 11:08 AM LOS: 11 days IM letter given to patient on 02/02/2019. IM letter given and explained to patient. Precert obtained and pt to be discharged to [facility] today. Transportation arranged for 3 PM fruit picker. SIGNATURE: Florence Mullins RN PATIENT NAME: Jorge Covington DATE: February 02, 2019 TIME: 11:08 AM PAGER/CONTACT #: [phone] [facility] CBCon 02-02-2019 Erythrocyte distribution width (RBC) [Ratio] 17.4 % High 11.5-15.0 [facility] Comment on above: Performed By: #### C BC, CMP ####[facility] [address] [place], [place] [phone] Hematocrit (Bld) [Volume fraction] 40.7 % Normal 39.0-51.0 [facility] Comment on above: Performed By: #### C RAFAEL, CMP ####[facility] [address] [place] [address] Hemoglobin (Bld) [Mass/Vol] 13.0 g/dL Normal 13.0-17.0 [facility] Comment on above: Performed By: #### C RAFAEL, CMP ####[facility] [address] [place] [address] MCH (RBC) [Entitic mass] 30.0 pG Normal 26.0-34.0 [facility] Comment on above: Performed By: #### C RAFAEL, CMP ####[facility] [address] [place] [address] MCHC (RBC) [Mass/Vol] 31.9 g/dL Normal 30.5-36.0 [facility] Comment on above: Performed By: #### C RAFAEL, CMP ####[facility] [address] [place] [address] MCV (RBC) [Entitic vol] 94.0 fL Normal 80.0-100.0 [facility] Comment on above: Performed By: #### C RAFAEL, CMP ####[facility] [address] [place] [address] Platelet mean volume (Bld) [Entitic vol] 9.5 fL Normal 9.0-12.7 [facility] Comment on above: Performed By: #### C RAFAEL, CMP ####[facility] [address] [place] [address] Platelets (Bld) [#/Vol] 383 10*3/uL Normal 150-400 [facility] Comment on above: Performed By: #### C RAFAEL, CMP ####[facility] [address] [place] [address] RBC (Bld) [#/Vol] 4.33 10*6/uL Normal 4.20-6.00 [facility] Comment on above: Performed By: #### C BC, CMP ####[facility] [address] [place] [address] WBC (Bld) [#/Vol] 10.09 10*3/uL Normal 3.70-11.00 [facility] Comment on above: Performed By: #### C BC, CMP ####[facility] [address] [place] [phone] CNCOon 02-02-2019 CNCO Letter Text Normal [facility] CONSULT PROGon 02-02-2019 CONSULT PROG HNO ID: [id number] Author: Magy Orosco Service: Gastroenterology Author Type: [...] (97.8 ?F) Temporal 82 20 ? ? 02/01/192049 99/55 36.9 ?C (98.5 ?F) Temporal 82 18 93 % ? 02/01/191954 ? ? ? 88 18 ? ? 02/01/191944 ? ? ? 88 18 94 % ? 02/01/19 1452 121/83 36.7 ?C (98 ?F) Temporal 87 18 93 % ? GENERAL: Alert AND oriented x 3. Cooperative. NAD EYES: No scleral icterus SKIN: [place] in color. No jaundice LUNGS: Scattered rhonchi [...] Coags, BMP, Mg, Phos Recent Labs 02/02/19 0429 02/01/19 0432 01/31/19 0416 WBC 10.09 11.05* 9.46 [...] COLONOSCOPY Patient reports many years ago at [place] - further details unknown SIGNATURE: Mimi Ace, TRANSFORMER ASSEMBLY SUPERVISOR DATE: February 02, 2019 TIME: 2:05 PM Normal [facility] Comp Metabolic Panelon 02-02 Albumin [Mass/Vol] 3.8 g/dL Low 3.9-4.9 [facility] Comment on above: Performed By: #### C BC, CMP ####[facility] [address] [place] [address] ALP [Catalytic activity/Vol] 64 U/L Normal 38-113 [facility] Comment on above: Performed By: #### C BC, CMP ####[facility] [address] [place] [address] ALT [Catalytic activity/Vol] 15 U/L Normal 10-54 [facility] Comment on above: Performed By: #### C BC, CMP ####[facility] [address] [place] [address] Anion gap [Moles/Vol] 11 mmol/L Normal 9-18 [facility] Comment on above: Performed By: #### C BC, CMP ####[facility] [address] [place] [address] AST [Catalytic activity/Vol] 15 U/L Normal 14-40 [facility] Comment on above: Performed By: #### C BC, CMP ####[facility] [address] [place] [address] Bilirubin [Mass/Vol] 0.5 mg/dL Normal 0.2-1.3 [facility] Comment on above: Performed By: #### C BC, CMP ####[facility] [address] [place] [address] Calcium [Mass/Vol] 9.1 mg/dL Normal 8.5-10.2 [facility] Comment on above: Performed By: #### C BC, CMP ####[facility] [address] [place] [address] Chloride [Moles/Vol] 99 mmol/L Normal 97-105 [facility] Comment on above: Performed By: #### C BC, CMP ####[facility] [address] [place] [id number] CO2 [Moles/Vol] 24 mmol/L Normal 22-30 [facility] Comment on above: Performed By: #### C BC, CMP ####[facility] [address] [place] [address] Creatinine [Mass/Vol] 0.75 mg/dL Normal 0.73-1.22 [facility] Comment on above: Performed By: #### C BC, CMP ####[facility] [address] [place] [address] eGFR- Amer. >60 Normal [facility] Comment on above: Performed By: #### C RAFAEL, CMP ####[facility] [address] [place] [phone] GFR/1.73 sq M predicted among non-blacks MDRD (S/P/Bld) [Vol rate/Area] mL/min/{1.73_m2} Normal [facility] Comment on above: Result Comment: eGFR (Estimated [...] GFR. Performed By: #### C BC, CMP ####[facility] [address] [place] [phone] Glucose [Mass/Vol] 123 mg/dL High 74-99 [facility] Comment on above: Result Comment: The [place] [employer] (ADA) provides guidance for cutoff [...] Standards of Medical Care in Diabetes 2016, [place] [employer]. Diabetes Care. 2016.39(Suppl 1). Performed By: #### C BC, CMP ####[facility] [address] [place] [address] Potassium [Moles/Vol] 4.4 mmol/L Normal 3.7-5.1 [facility] Comment on above: Performed By: #### C BC, CMP ####[facility] [address] [place] [address] Protein [Mass/Vol] 7.4 g/dL Normal 6.3-8.0 [facility] Comment on above: Performed By: #### C BC, CMP ####[facility] [address] [place] [address] Sodium [Moles/Vol] 134 mmol/L Low 136-144 [facility] Comment on above: Performed By: #### C BC, CMP ####[facility] [address] [place] [address] Urea nitrogen [Mass/Vol] 21 mg/dL Normal 9-24 [facility] Comment on above: Performed By: #### C BC, CMP ####[facility] [address] [place] [address] THERAPY NTon 02-02-2019 THERAPY NT HNO ID: [id number] Author: Brook (Ammunition Assembly Laborer) Jama Marie CCC/ARRT TECHNOLOGIST Service: Speech/Swallow Author Type: Speech Language Pathologist Type: Therapy (PT/OT/Speech/Resp) Filed: 02/02/2019 9:27 AM Note Text: Speech Therapy Treatment SERVICE DATE: 02/02/2019 SERVICE TIME: 0850 to 0920 ROOM: [place] [address] Nursing Recommendations: Reinforce use of swallowing strategies [...] suspect Esophageal Dysphagia) Interventions Provided: Dysphagia Therapy (59512) $ Dysphagia Therapy (30608) Billed Units: 1 unit Skilled Interventions: Instructed [...] for this therapy evaluation/treatment. SIGNATURE: Brook Marie [facility]-ARRT TECHNOLOGIST PATIENT NAME: Jorge Covington DATE: February 02, 2019 TIME: 9:[address] [facility] ANES Diana 02-01-2019 ANES POST HNO ID: [id number] Author: Orlando Sparks MD Service: Anesthesiology Author [...] 01, 2019 TIME: 12:29 PM PAGER/CONTACT #: [facility] ANES PREOPon 02-01-2019 ANES PREOP HNO ID: [id number] Author: Lemuel Beal Service: Anesthesiology Author Type: [...] Without Sciatica Copd (Chronic Obstructive Pulmonary Disease) ([facility]) Hypothyroidism Gerd (Gastroesophageal Reflux Disease) Overactive Bladder Septicemia Due to Klebsiella Pneumoniae ([facility]) PAST MEDICAL HISTORY Diagnosis Date - Closed fracture of cervical vertebra ([facility]) 05/07/2018 - Closed fracture of thoracic vertebra with routine healing 05/07/2018 - COPD (chronic obstructive pulmonary disease) ([facility]) - History of cervical fracture 01/28/2018 - Hypothyroidism - 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 No pertinent surgical history. [...] mg INTRAVENOUS BID AC (0600/1600) Everton Gomes (Program Arranger) Tina 40 mg at 02/01/19 0534 - [MAR [...] February 01, 2019 TIME: 11:14 AM CSN: [id number] Normal [facility] Basic Metabolic Panlon 02-01 Anion gap [Moles/Vol] 12 mmol/L Normal 9-18 [facility] Comment on above: Performed By: #### C BC, BMP ####[facility] [address] [place] [address] Calcium [Mass/Vol] 9.7 mg/dL Normal 8.5-10.2 [facility] Comment on above: Performed By: #### C BC, BMP ####[facility] [address] [place] [address] Chloride [Moles/Vol] 100 mmol/L Normal 97-105 [facility] Comment on above: Performed By: #### C BC, BMP ####[facility] [address] [place] [address] CO2 [Moles/Vol] 24 mmol/L Normal 22-30 [facility] Comment on above: Performed By: #### C BC, BMP ####[place] [address] Creatinine [Mass/Vol] 0.71 mg/dL Low 0.73-1.22 [facility] Comment on above: Performed By: #### C BC, BMP ####[facility] [address] [place] [address] eGFR- Amer. >60 Normal [facility] Comment on above: Performed By: #### C BC, BMP ####[facility] [address] [place] [address] GFR/1.73 sq M predicted among non-blacks MDRD (S/P/Bld) [Vol rate/Area] mL/min/{1.73_m2} Normal [facility] Comment on above: Result Comment: eGFR (Estimated [...] GFR. Performed By: #### C RAFAEL, BMP ####[facility] [address]elf[address] [place] [address] Glucose [Mass/Vol] 124 mg/dL High 74-99 [facility] Comment on above: Result Comment: The [place] Diabetes Association (ADA) provides guidance for cutoff [...] Standards of Medical Care in Diabetes 2016, [place] [employer]. Diabetes Care. 2016.39(Suppl 1). Performed By: #### C BC, BMP ####[facility] [address] [place] [phone] Potassium [Moles/Vol] 4.5 mmol/L Normal 3.7-5.1 [facility] Comment on above: Performed By: #### C BC, BMP ####[facility] [address]om[address] [place] 3139860 Sodium [Moles/Vol] 136 mmol/L Normal 136-144 [facility] Comment on above: Performed By: #### C BC, BMP ####[facility] [address]em[address]10 [place] [phone] Urea nitrogen [Mass/Vol] 22 mg/dL Normal 9-24 [facility] Comment on above: Performed By: #### C BC, BMP ####[facility] [address] [place] [address] CASE MANAGEMon 02-01-2019 CASE MANAGEM HNO ID: [id number] Author: Florence (Rn) VIKTOR Mullins Service: Care Management Author Type: Registered Nurse Type: Care Mgt Progress Note Filed: 02/01/2019 4:33 PM Note Text: CARE MANAGEMENT PROGRESS NOTE SERVICE DATE: 02/01/2019 SERVICE TIME: 09:00 AM LOS: 10 days Needs Prior to Discharge: Discharge Transportation;Other: See Comment(medical clearance) Precert obtained from [employer] for [employer] at [place]. Call placed to Dasia to update. She [...] 01, 2019 TIME: 4:31 PM PAGER/CONTACT #: [phone] Normal [facility] CBCon 02-01-2019 Erythrocyte distribution width (RBC) [Ratio] 17.5 % High 11.5-15.0 [facility] Comment on above: Performed By: #### C BC, BMP ####[facility] [address] [place] [address] Hematocrit (Bld) [Volume fraction] 42.5 % Normal 39.0-51.0 [facility] Comment on above: Performed By: #### C BC, BMP ####[facility] [address] [place] [address] Hemoglobin (Bld) [Mass/Vol] 13.6 g/dL Normal 13.0-17.0 [facility] Comment on above: Performed By: #### C BC, BMP ####[facility] [address] [place] [address] MCH (RBC) [Entitic mass] 29.6 pG Normal 26.0-34.0 [facility] Comment on above: Performed By: #### C BC, BMP ####[facility] [address] [place] [address] MCHC (RBC) [Mass/Vol] 32.0 g/dL Normal 30.5-36.0 [facility] Comment on above: Performed By: #### C BC, BMP ####[facility] Upomfdgwgp4318 [phone] MCV (RBC) [Entitic vol] 92.6 fL Normal 80.0-100.0 M [facility] Comment on above: Performed By: #### C BC, BMP ####[facility] [address]9512 [place] [phone] Platelet mean volume (Bld) [Entitic vol] 9.5 fL Normal 9.0-12.7 [facility] Comment on above: Performed By: #### C BC, BMP ####[facility] Iwixotrvwp3229 [phone] Platelets (Bld) [#/Vol] 405 10*3/uL High 150-400 [facility] Comment on above: Performed By: #### C BC, BMP ####[facility] Ritatddbsl7466 [place] [phone] RBC (Bld) [#/Vol] 4.59 10*6/uL Normal 4.20-6.00 [facility] Comment on above: Performed By: #### C BC, BMP ####[facility] Uxht[address]xt7593 [phone] WBC (Bld) [#/Vol] 11.05 10*3/uL High 3.70-11.00 [facility] Comment on above: Performed By: #### C BC, BMP ####[facility] Wop[address]rxzhy1598 [phone] CONSULTon 02-01-2019 CONSULT HNO ID: [id number] Author: Magy Orosco Service: Gastroenterology Author Type: Physician Type: Consults Filed: 02/01/2019 11:29 AM Note Text: GASTROENTEROLOGY CONSULT NOTE PATIENT NAME: Jorge Covington SERVICE DATE: February 01, 2019 SERVICE TIME: 9:16 AM PRIMARY CARE PHYSICIAN: Brian Zimmerman MD ATTENDING PHYSICIAN: Shirley Romo MD REASON FOR ADMISSION: Altered mental status and hypoxia REASON FOR CONSULTATION: Dysphagia HPI: This is a 63 year old male with a past medical history significant for COPD, hypothyroidism, GERD who was admitted to [facility] 01/22/19 with acute respiratory failure with hypercapnea. [...] ?F) Temporal 82 18 94 % ? 01/31/19 2027 103/69 36.6 ?C (97.8 ?F) Temporal 89 [...] Cooperative. NAD EYES: No scleral icterus SKIN: [place] in color. No jaundice LUNGS: Scattered rhonchi [...] COLONOSCOPY Patient reports many years ago at [place] - further details unknown ASSESSMENT 1- Esophageal [...] DATE: February 01, 2019 TIME: 9:[address] [facility] NURSING PROGon 02-01-2019 NURSING PROG HNO ID: [id number] Author: Zac De La RosaRn) Rafal RN Service: Nursing Author Type: Registered Nurse Type: Nursing Progress Note Filed: 02/01/2019 1:58 PM Note Text: Nursing Progress Note Patient Name: Jorge Covington Patient Location: [facility]0264/[facility]-0264 -1 Daily Note: Pt awake, a/ox2, on [...] passed bedside swallow eval, call out to Miim in regards to diet order. This note was completed by: Zac Lyles RN [facility] NUTRITIONon 02-01-2019 NUTRITION HNO ID: [id number] Author: Yue Marquez Service: Nutrition Therapy Author [...] DATE: February 01, 2019 TIME: 9:[address] [facility] PROGRESSon 02-01-2019 PROGRESS HNO ID: [id number] Author: Shirley Romo Service: ? Author Type: [...] ?F) Temporal 82 18 94 % ? 01/31/19 2027 103/69 36.6 ?C (97.8 ?F) Temporal 89 [...] HOURS 01/22/192228 -- 01/22/192229 pneumatic compression stockings (me,ut) 01/22/191814 vte non-pharmacologic prophylaxis - none indicated (me,ut) 01/22/191814 activity - mobilize patient (me,ut) VTE Prophylaxis: VTE prophylaxis appropriate SIGNATURE: Shirley Romo DO PATIENT NAME: Jorge Covington DATE: February 01, 2019 TIME: 11:44 AM PAGER/CONTACT #: [phone] [facility] SURGICAL PATHOLOGYon 11-05-2 019 SURGICAL PATHOLOGY Specimen originated from [facility] Specimen #: [id number] Submitting Physician: MAGY OROSCO M.D. FINAL DIAGNOSIS [...] cassette. Gross examination performed at [facility], [address] [place] [address] 02/01/2019 5:08:12 PM Date of Report: 02/02/2019 Date of Procedure: 02/01/2019 Date of Receipt: 02/01/2019 Submitted by: MAGY OROSCO M.D. Location: [address] [place] [address] Diagnostic interpretation performed at [place] [address]. [place] Number: [id number] [facility] THERAPY NTon 02-01-2019 THERAPY NT HNO ID: [id number] Author: Brook (Ammunition Assembly Laborer) Jama Marie CCC/ARRT TECHNOLOGIST Service: Speech/Swallow Author Type: Speech Language Pathologist Type: Therapy (PT/OT/Speech/Resp) Filed: 02/01/2019 8:39 AM Note Text: Speech Therapy Clinical Swallow Evaluation SERVICE DATE: 02/01/2019 SERVICE TIME: 0750 to 08 ROOM: [place] [address] Nursing Recommendations: Reinforce use of swallowing strategies [...] the turkey sandwich -while at bedside this ARRT TECHNOLOGIST noted significant / reoccurring episodes of burping, [...] Esophageal Dysphagia) Interventions Provided: Clinical Swallow Evaluation (29389) $ Clinical Swallow Evaluation (56210) Billed Units: 1 unit Clinical Swallowing assessment [...] for this therapy evaluation/treatment. SIGNATURE: Brook Marie [facility]-ARRT TECHNOLOGIST PATIENT NAME: Jorge Covintgon DATE: February 01, 2019 TIME: 8:[address] [facility] XR CHEST 2V FRONTAL/LATon XR CHEST 2V FRONTAL/LAT * * *Final Repor t* * * DATE OF EXAM: Feb 01 2019 10:56AM MDX 5291 - XR CHEST 2V FRONTAL/LAT / [...] Bibasilar pleural effusions, underlying processes not excluded. Medical Science Liaison: ALDO Transcribe Date/Time: Feb 01 2019 12:29P Dictated by : JANELLE THOMAS MD This examination was interpreted and the report reviewed and electronically signed by: JANELLE THOMAS MD on Feb 01 2019 12:30PM EST [id number] Normal [facility] Basic Metabolic Panlon 01-31 Anion gap [Moles/Vol] 10 mmol/L Normal 9-18 [facility] Comment on above: Performed By: #### C RAFAEL BMP ####[facility] Bekdraoxpk3277 [phone] Calcium [Mass/Vol] 9.4 mg/dL Normal 8.5-10.2 [facility] Comment on above: Performed By: #### C RAFAEL BMP ####[facility] [address] [place] [address] Chloride [Moles/Vol] 103 mmol/L Normal 97-105 [facility] Comment on above: Performed By: #### C BC, BMP ####[facility] [address]erc17[address] [place] [address] CO2 [Moles/Vol] 25 mmol/L Normal 22-30 [facility] Comment on above: Performed By: #### C BC, BMP ####[facility] [address]zh[address]jmsl2[address] [place] [address] Creatinine [Mass/Vol] 0.77 mg/dL Normal 0.73-1.22 [facility] Comment on above: Performed By: #### C BC, BMP ####[facility] [address] [place] [address] eGFR- Amer. >60 Normal [facility] Comment on above: Performed By: #### C BC, BMP ####[facility] [address] [place] [address] GFR/1.73 sq M predicted among non-blacks MDRD (S/P/Bld) [Vol rate/Area] mL/min/{1.73_m2} Normal [facility] Comment on above: Result Comment: eGFR (Estimated [...] GFR. Performed By: #### C BC, BMP ####[facility] [address]x75[address] [place] [address] Glucose [Mass/Vol] 114 mg/dL High 74-99 [facility] Comment on above: Result Comment: The [place] Diabetes Association (ADA) provides guidance for cutoff [...] Standards of Medical Care in Diabetes 2016, [place] [employer]. Diabetes Care. 2016.39(Suppl 1). Performed By: #### C BC, BMP ####[facility] [address] [place] [address] Potassium [Moles/Vol] 4.6 mmol/L Normal 3.7-5.1 [facility] Comment on above: Performed By: #### C BC, BMP ####[facility] [address]lqvprdqm9[address] [place] [address] Sodium [Moles/Vol] 138 mmol/L Normal 136-144 [facility] Comment on above: Performed By: #### C BC, BMP ####[facility] [address]nrq[address] [place] [address] Urea nitrogen [Mass/Vol] 24 mg/dL Normal 9-24 [facility] Comment on above: Performed By: #### C BC, BMP ####[facility] [address]ob[address] [place] [address] CASE MANAGEMon 01-31-2019 CASE MANAGEM HNO ID: [id number] Author: Florence (Rn) VIKTOR Mullins Service: Care Management Author Type: Registered Nurse Type: Care Mgt Progress Note Filed: 01/31/2019 3:04 PM Note Text: CARE MANAGEMENT PROGRESS NOTE SERVICE DATE: 01/31/2019 SERVICE TIME: 2:59 PM LOS: 9 days Needs Prior to Discharge: Precertification;Disc harge Transportation CM met with patient at bedside and received call from Dasia regarding discharge. Awaiting precert for admission to [facility]. wanted to change SNF location to [facility] she called them and they told her they had a bed. Received call from [facility], unfortunately was transferred to acute rehab area which does have a bed, SNF does not. Patient does not meet criteria for their acute rehab. SNF will not have a bed open until Thursday. Discussed with Dasia this updated information from [facility]. Discussed with her sending pt to [place] after we get precert, then having them transfer him to [facility] when their bed opens. reluctant to agree, doesn't think the facility will do that. Has had bad experience with another facility in the past. is calling her insurance company and will call back SIGNATURE: Florence Mullins RN PATIENT NAME: Jorge Covington DATE: January 31, 2019 TIME: 2:59 PM PAGER/CONTACT #: [phone] Normal [facility] CBCon 01-31-2019 Erythrocyte distribution width (RBC) [Ratio] 17.6 % High 11.5-15.0 [facility] Comment on above: Performed By: #### C BC, BMP ####[facility] [address] [place] [address] Hematocrit (Bld) [Volume fraction] 41.3 % Normal 39.0-51.0 [facility] Comment on above: Performed By: #### C , BMP ####[facility] [address] [place] [address] Hemoglobin (Bld) [Mass/Vol] 13.1 g/dL Normal 13.0-17.0 [facility] Comment on above: Performed By: #### C BC, BMP ####[facility] [address] [place] [address] MCH (RBC) [Entitic mass] 29.6 pG Normal 26.0-34.0 [facility] Comment on above: Performed By: #### C BC, BMP ####[facility] [address] [place] [address] MCHC (RBC) [Mass/Vol] 31.7 g/dL Normal 30.5-36.0 [facility] Comment on above: Performed By: #### C BC, BMP ####[facility] [address] [place] [address] MCV (RBC) [Entitic vol] 93.4 fL Normal 80.0-100.0 [facility] Comment on above: Performed By: #### C BC, BMP ####[facility] [address] [place], [place] [phone] Platelet mean volume (Bld) [Entitic vol] 9.3 fL Normal 9.0-12.7 [facility] Comment on above: Performed By: #### C BC, BMP ####[facility] Bvepxlfrri4165 [address]5160 Platelets (Bld) [#/Vol] 374 10*3/uL Normal 150-400 [facility] Comment on above: Performed By: #### C BC, BMP ####[facility] Gftrlicxou[address] [place] [phone] RBC (Bld) [#/Vol] 4.42 10*6/uL Normal 4.20-6.00 [facility] Comment on above: Performed By: #### C BC, BMP ####[facility] Hayholizmp3503 [address]5160 WBC (Bld) [#/Vol] 9.46 10*3/uL Normal 3.70-11.00 [facility] Comment on above: Performed By: #### C BC, BMP ####[facility] [address] [place], [place] [id number] PROGRESSon 01-31-2019 PROGRESS HNO ID: [id number] Author: Everton Gomes (Program Arranger) Bam Service: General Internal Medicine Author Type: Nurse Practitioner Type: Progress Notes Filed: 01/31/2019 8:21 PM Note Text: INCIDENTAL PROGRESS NOTE Name: Jorge Covington SERVICE DATE: 01/31/2019 SERVICE TIME: 2010 ATTENDING: Dr. Shirley Romo Subjective INTERVAL HPI: Patient admitted for COPD exacerbation on 01/22. Today nursing calls TRANSFORMER ASSEMBLY SUPERVISOR with complaints of patient choking on a turkey sandwich. TRANSFORMER ASSEMBLY SUPERVISOR at bedside to see patient and his [...] -States choking and coughing up a turkey [facility] -Make patient NPO -ST consult 2. GERD -Hx of GERD -States increased symptoms -Also has noted #1 -Change PPI to BID IV -Increase HOB -Await ST consult Everton Kuhn APRN.CNP SIGNATURE: Everton Kuhn APRN.CNP PATIENT NAME: Jorge Covington DATE: January 31, 2019 TIME: 8:11 PM PAGER: [phone] [facility] THERAPY NTon 01-31-2019 THERAPY NT HNO ID: [id number] Author: Drea De La RosaOt/LDemi Burciaga Service: Occupational Therapy Author Type: Occupational Therapist Type: Therapy (PT/OT/Speech/Resp) Filed: 01/31/2019 1:20 PM Note Text: Occupational Therapy Treatment SERVICE DATE: 01/31/2019 SERVICE TIME: 1248 to 1300 ROOM: [place] [address] Recommended Discharge Disposition: Subacute/SNF Recommended Discharge Disposition [...] Cognitive Functions and Awareness Interventions Provided: Self Fdc Management (77988) Self Fdc Management (17837) Treatment Minutes: 12 1 unit Skilled Intervention(s): [...] Care;Shopping;Transpo rtation;Wheelchair Mobility Prior Functional Level Comments: 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 SIGNATURE: Drea Burciaga OT/Eliseo PATIENT NAME: Jorge Covington DATE: January 31, 2019 TIME: 1:[address] [facility] THERAPY NT HNO ID: [id number] Author: Melvi Ledezma Service: Physical Therapy Author Type: Building And Grounds Supervisor Type: Therapy (PT/OT/Speech/Resp) Filed: 02/02/2019 7:17 AM Note Text: Attestation signed by Philip Mccoy at 02/03/2019 7:17 AM I reviewed and agree with the documentation corresponding to this therapy visit. SIGNATURE: Philip Mccoy PT DATE: February 03, 2019 TIME: 7:17 AM Physical Therapy Treatment SERVICE DATE: 01/31/2019 SERVICE TIME: 1235 to 1250 ROOM: [id number] Recommended Discharge Disposition: Subacute/SNF Recommended Discharge Disposition [...] Diagnosis: Reduced mobility-other Interventions Provided: Therapeutic Exercise (71408);Therapeutic Activity (35551) Therapeutic Exercise (02669) Treatment Minutes: 10 1 unit Skilled Intervention(s): [...] frequent performance of anti-embolic exercises Therapeutic Activity (82837) Treatment Minutes: 3 0 units Skilled Intervention(s): [...] to walk. Patient appropriate for PT per Darcie PURCELL. 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 w/c/bed bound, pt is [...] January 31, 2019 TIME: 12:59 PM Normal [facility] Basic Metabolic Panlon 01-30 Anion gap [Moles/Vol] 12 mmol/L Normal 9-18 [facility] Comment on above: Performed By: #### C BC, BMP ####[facility] Wducxjkptb0202 [phone] Calcium [Mass/Vol] 9.5 mg/dL Normal 8.5-10.2 [facility] Comment on above: Performed By: #### C BC, BMP ####[facility] Vylwhchxow0529 [phone] Chloride [Moles/Vol] 100 mmol/L Normal 97-105 [facility] Comment on above: Performed By: #### C BC, BMP ####[facility] Z[address]qmey20[address] [place] [address] CO2 [Moles/Vol] 26 mmol/L Normal 22-30 [facility] Comment on above: Performed By: #### C BC, BMP ####[facility] Topfzigwcy9314 [place] [address] Creatinine [Mass/Vol] 0.79 mg/dL Normal 0.73-1.22 [facility] Comment on above: Performed By: #### C BC, BMP ####[facility] Nzgwjakppn7188 [place] [address] eGFR- Amer. >60 Normal [facility] Comment on above: Performed By: #### C BC, BMP ####[facility] Jmgjdbpaxq9528 [place] [address] GFR/1.73 sq M predicted among non-blacks MDRD (S/P/Bld) [Vol rate/Area] mL/min/{1.73_m2} Normal [facility] Comment on above: Result Comment: eGFR (Estimated [...] GFR. Performed By: #### C BC, BMP ####[facility] [address]j4[address] [place] [phone] Glucose [Mass/Vol] 108 mg/dL High 74-99 [facility] Comment on above: Result Comment: The [place] Diabetes Association (ADA) provides guidance for cutoff [...] Standards of Medical Care in Diabetes 2016, [place] [employer]. Diabetes Care. 2016.39(Suppl 1). Performed By: #### C , BMP ####[facility] [address] [place] [address] Potassium [Moles/Vol] 4.4 mmol/L Normal 3.7-5.1 [facility] Comment on above: Performed By: #### C BC, BMP ####[place] [address] Sodium [Moles/Vol] 138 mmol/L Normal 136-144 [facility] Comment on above: Performed By: #### C RAFAEL, BMP ####[place] [address] Urea nitrogen [Mass/Vol] 24 mg/dL Normal 9-24 [facility] Comment on above: Performed By: #### C , BMP ####[facility] [address] [place] [address] CBCon 01-30-2019 Erythrocyte distribution width (RBC) [Ratio] 17.8 % High 11.5-15.0 [facility] Comment on above: Performed By: #### C BC, BMP ####[place] [address] Hematocrit (Bld) [Volume fraction] 40.4 % Normal 39.0-51.0 [facility] Comment on above: Performed By: #### C BC, BMP ####[place] [address] Hemoglobin (Bld) [Mass/Vol] 12.9 g/dL Low 13.0-17.0 [facility] Comment on above: Performed By: #### C BC, BMP ####[place] [address] MCH (RBC) [Entitic mass] 29.8 pG Normal 26.0-34.0 [facility] Comment on above: Performed By: #### C BC, BMP ####[facility] [address]hrjcx8278 [place] [phone] MCHC (RBC) [Mass/Vol] 31.9 g/dL Normal 30.5-36.0 [facility] Comment on above: Performed By: #### Beatriz HALL, BMP ####[facility] [address]1967 [place] [phone] MCV (RBC) [Entitic vol] 93.3 fL Normal 80.0-100.0 M [facility] Comment on above: Performed By: #### Beatriz HALL, BMP ####[facility] Gvlvshqfdl6018 [place] [phone] Platelet mean volume (Bld) [Entitic vol] 9.7 fL Normal 9.0-12.7 [facility] Comment on above: Performed By: #### Beatriz HALL, BMP ####[facility] Ckmjtlhbxi6375 [place] [phone] Platelets (Bld) [#/Vol] 375 10*3/uL Normal 150-400 [facility] Comment on above: Performed By: #### Beatriz HALL, BMP ####[facility] Jnugyxkkyv6427 [place] [phone] RBC (Bld) [#/Vol] 4.33 10*6/uL Normal 4.20-6.00 [facility] Comment on above: Performed By: #### Beatriz , BMP ####[facility] Ywvbmrnxjk9022 [place] [phone] WBC (Bld) [#/Vol] 8.69 10*3/uL Normal 3.70-11.00 [facility] Comment on above: Performed By: #### Beatriz , BMP ####[facility] Haw[address]kl[address] [place] [phone] NURSING PROGon 01-30-2019 NURSING PROG HNO ID: [id number] Author: Zac (Rn) Rafal, RN Service: Nursing Author Type: Registered Nurse Type: Nursing Progress Note Filed: 01/30/2019 8:53 AM Note Text: Nursing Progress Note Patient Name: Jorge Covington Patient [facility] -[facility] Daily Note: Pt laying in bed, a/ox3, lungs cta slightly diminished in bases, on RA, denies sob, cough, cp. abd large but nontender +bsx4, no edema. Denies pain at this time. SR 71 on tele. This note was completed by: Zac Lyles RN [facility] PROGRESSon 01-30-2019 PROGRESS HNO ID: [id number] Author: Shirley Romo Service: ? Author Type: [...] 01/22/192228 -- 01/22/19 223 pneumatic compression stockings (me,oh) 01/22/191814 vte non-pharmacologic prophylaxis - none indicated (me,oh) 01/22/191814 activity - mobilize patient (me,ut) VTE Prophylaxis: VTE prophylaxis appropriate SIGNATURE: Shirley Romo DO PATIENT NAME: Jorge Covington DATE: January 30, 2019 TIME: 9:14 AM PAGER/CONTACT #: [phone] Normal [facility] [facility] Basic Metabolic Panlon 01-29 Anion gap [Moles/Vol] 9 mmol/L Normal 9-18 [facility] Comment on above: Performed By: #### C RAFAEL, BMP ####[facility] [address] [place] [phone] Calcium [Mass/Vol] 9.7 mg/dL Normal 8.5-10.2 [facility] Comment on above: Performed By: #### C RAFAEL, BMP ####[facility] [address]kw[address]hr[address] [place] [phone] Chloride [Moles/Vol] 97 mmol/L Normal 97-105 [facility] Comment on above: Performed By: #### C RAFAEL, BMP ####[facility] Ojereivqoz5559 [address]5160 CO2 [Moles/Vol] 30 mmol/L Normal 22-30 [facility] Comment on above: Performed By: #### C RAFAEL, BMP ####[facility] Zxdnsvtbeg1762 [place] [phone] Creatinine [Mass/Vol] 0.86 mg/dL Normal 0.73-1.22 [facility] Comment on above: Performed By: #### C RAFAEL, BMP ####[facility] [address] [place] [phone] eGFR- Amer. >60 Normal [facility] Comment on above: Performed By: #### C RAFAEL, BMP ####[facility] Agivwcuxpm0604 [place] [phone] GFR/1.73 sq M predicted among non-blacks MDRD (S/P/Bld) [Vol rate/Area] mL/min/{1.73_m2} Normal [facility] Comment on above: Result Comment: eGFR (Estimated [...] GFR. Performed By: #### C RAFAEL, BMP ####[facility] [address]ke27[address] [place] [phone] Glucose [Mass/Vol] 103 mg/dL High 74-99 [facility] Comment on above: Result Comment: The [place] Diabetes Association (ADA) provides guidance for cutoff [...] Standards of Medical Care in Diabetes 2016, [place] [employer]. Diabetes Care. 2016.39(Suppl 1). Performed By: #### C RAFAEL, BMP ####[place] [address] Potassium [Moles/Vol] 4.5 mmol/L Normal 3.7-5.1 [facility] Comment on above: Performed By: #### C RAFAEL, BMP ####[place] [address] Sodium [Moles/Vol] 136 mmol/L Normal 136-144 [facility] Comment on above: Performed By: #### C RAFAEL, BMP ####[place] [address] Urea nitrogen [Mass/Vol] 20 mg/dL Normal 9-24 [facility] Comment on above: Performed By: #### C RAFAEL, BMP ####[place] [address] CBCon 01-29-2019 Erythrocyte distribution width (RBC) [Ratio] 18.0 % High 11.5-15.0 [facility] Comment on above: Performed By: #### C RAFAEL, BMP ####[place] [address] Hematocrit (Bld) [Volume fraction] 40.0 % Normal 39.0-51.0 [facility] Comment on above: Performed By: #### C RAFAEL, BMP ####[place] [address] Hemoglobin (Bld) [Mass/Vol] 12.6 g/dL Low 13.0-17.0 [facility] Comment on above: Performed By: #### C RAFAEL, BMP ####[place] [address] MCH (RBC) [Entitic mass] 29.7 pG Normal 26.0-34.0 [facility] Comment on above: Performed By: #### C RAFAEL, BMP ####[place] [address] MCHC (RBC) [Mass/Vol] 31.5 g/dL Normal 30.5-36.0 [facility] Comment on above: Performed By: #### Beatriz HALL, BMP ####[facility] Saoqviwneg1403 [address]5160 MCV (RBC) [Entitic vol] 94.3 fL Normal 80.0-100.0 M [facility] Comment on above: Performed By: #### Beatriz HALL, BMP ####[facility] Gfalibisio[address] [place] [phone] Platelet mean volume (Bld) [Entitic vol] 9.4 fL Normal 9.0-12.7 [facility] Comment on above: Performed By: #### Beatriz HALL, BMP ####[facility] Xbozqfnsww5400 [address]5160 Platelets (Bld) [#/Vol] 363 10*3/uL Normal 150-400 [facility] Comment on above: Performed By: #### Beatriz HALL, BMP ####[facility] [address] [place] [phone] RBC (Bld) [#/Vol] 4.24 10*6/uL Normal 4.20-6.00 [facility] Comment on above: Performed By: ###Olamide HALL, BMP ####[facility] Iwoobjdprn6727 [address]5160 WBC (Bld) [#/Vol] 7.41 10*3/uL Normal 3.70-11.00 [facility] Comment on above: Performed By: ###Olamide HALL, BMP ####[facility] Pcdfxdbovq9754 [address]5160 NURSING PROGon 01-29-2019 NURSING PROG HNO ID: [id number] Author: Zac (Rn) Rafal, RN Service: Nursing Author Type: Registered Nurse Type: Nursing Progress Note Filed: 01/29/2019 8:03 AM Note Text: Nursing Progress Note Patient Name: Jorge Covington Patient Location: [id number] -1 Daily Note: Pt is a/ox2, lungs cta, denies sob, cp.was on 2L at 99% states does NOT use at home, took off pt is 95% will continue to monitor. abd large nontender, This note was completed by: Zac Lyles RN [facility] PROGRESSon 01-29-2019 PROGRESS HNO ID: [id number] Author: Shirley Romo Service: ? Author Type: [...] ? 102.4 kg (225 lb 12 oz) 01/28/19 2357 134/74 37 ?C (98.6 ?F) Oral 63 [...] 01/22/192228 -- 01/22/19 223 pneumatic compression stockings (me,ut) 01/22/19 181 vte non-pharmacologic prophylaxis - none indicated (me,ut) 01/22/191814 activity - mobilize patient ([place], [place]) VTE Prophylaxis: VTE prophylaxis appropriate SIGNATURE: Shirley Romo DO PATIENT NAME: Jorge Covington DATE: January 29, 2019 TIME: 11:31 AM PAGER/CONTACT #: [phone] Normal [facility] Basic Metabolic Panlon 01-28 Anion gap [Moles/Vol] 11 mmol/L Normal 9-18 [facility] Comment on above: Performed By: #### C RAFAEL, BMP ####[facility] [address]v77[address] [place] [phone] Calcium [Mass/Vol] 9.8 mg/dL Normal 8.5-10.2 [facility] Comment on above: Performed By: #### C RAFAEL, BMP ####[facility] [address]ztmuxa8603 [place] [phone] Chloride [Moles/Vol] 104 mmol/L Normal 97-105 [facility] Comment on above: Performed By: #### C RAFAEL, BMP ####[facility] [address]xl8476 [place] [address] CO2 [Moles/Vol] 27 mmol/L Normal 22-30 [facility] Comment on above: Performed By: #### C RAFAEL, BMP ####[facility] Ofkmombugf[address]67 [place] [address] Creatinine [Mass/Vol] 0.74 mg/dL Normal 0.73-1.22 [facility] Comment on above: Performed By: #### C RAFAEL, BMP ####[facility] [address]pe[address]yltnp7636 [place] [phone] eGFR- Amer. >60 Normal [facility] Comment on above: Performed By: #### C RAFAEL, BMP ####[facility] [address]qis[address]agp6068 [place] [phone] GFR/1.73 sq M predicted among non-blacks MDRD (S/P/Bld) [Vol rate/Area] mL/min/{1.73_m2} Normal [facility] Comment on above: Result Comment: eGFR (Estimated [...] GFR. Performed By: #### C RAFAEL, BMP ####[facility] Yagziobood5243 [place] [phone] Glucose [Mass/Vol] 151 mg/dL High 74-99 [facility] Comment on above: Result Comment: The [place] Diabetes Association (ADA) provides guidance for cutoff [...] Standards of Medical Care in Diabetes 2016, [place] [employer]. Diabetes Care. 2016.39(Suppl 1). Performed By: #### C BC, BMP ####[facility] [address]ev[address] [place] [address] Potassium [Moles/Vol] 4.4 mmol/L Normal 3.7-5.1 [facility] Comment on above: Performed By: #### C BC, BMP ####[facility] [address]mp[address]uczo39[address] [place] [address] Sodium [Moles/Vol] 142 mmol/L Normal 136-144 [facility] Comment on above: Performed By: #### C BC, BMP ####[facility] Ptwpmbacyb5580 [place] [address] Urea nitrogen [Mass/Vol] 16 mg/dL Normal 9-24 [facility] Comment on above: Performed By: #### C RAFAEL, BMP ####[facility] [address] [place] [address] CASE MANAGEMon 01-28-2019 CASE MANAGEM HNO ID: [id number] Author: Florence (Rn) VIKTOR Mullins Service: Care Management Author Type: Registered Nurse Type: Care Mgt Progress Note Filed: 01/28/2019 12:53 PM Note Text: CARE MANAGEMENT PROGRESS NOTE SERVICE DATE: 01/28/2019 SERVICE TIME: 12:49 PM LOS: 6 days Needs Prior to Discharge: Precertification;Disc harge Transportation Call placed to patients Dasia to discuss discharge plan. Their first choice facility [facility] is able to accept. Facility has started [...] 28, 2019 TIME: 12:49 PM PAGER/CONTACT #: [phone] Normal [facility] CBCon 01-28-2019 Erythrocyte distribution width (RBC) [Ratio] 18.1 % High 11.5-15.0 [facility] Comment on above: Performed By: #### Beatriz HALL, BMP ####[facility] [address] [place] [address] Hematocrit (Bld) [Volume fraction] 38.0 % Low 39.0-51.0 [facility] Comment on above: Performed By: #### Beatriz HALL, BMP ####[facility] [address] [place] [address] Hemoglobin (Bld) [Mass/Vol] 12.1 g/dL Low 13.0-17.0 [facility] Comment on above: Performed By: #### Beatriz HALL, BMP ####[facility] [address]ws[address] [place], [place] [phone] MCH (RBC) [Entitic mass] 30.1 pG Normal 26.0-34.0 [facility] Comment on above: Performed By: #### Beatriz HALL, BMP ####[facility] [address] [place], [place] [phone] MCHC (RBC) [Mass/Vol] 31.8 g/dL Normal 30.5-36.0 [facility] Comment on above: Performed By: #### Beatriz HALL, BMP ####[facility] [address] [place], [place] [phone] MCV (RBC) [Entitic vol] 94.5 fL Normal 80.0-100.0 [facility] Comment on above: Performed By: #### Beatriz HALL, BMP ####[facility] [address] [place] [address] Platelet mean volume (Bld) [Entitic vol] 9.8 fL Normal 9.0-12.7 [facility] Comment on above: Performed By: #### Beatriz HALL, BMP ####[facility] E[address] [place], [place] [phone] Platelets (Bld) [#/Vol] 349 10*3/uL Normal 150-400 [facility] Comment on above: Performed By: #### Beatriz HALL, BMP ####[facility] Iwzc[address]isoxk[address] [place], [place] [phone] RBC (Bld) [#/Vol] 4.02 10*6/uL Low 4.20-6.00 [facility] Comment on above: Performed By: #### Beatriz HALL, BMP ####[facility] [address]ktfvqa2209 [place] [phone] WBC (Bld) [#/Vol] 8.04 10*3/uL Normal 3.70-11.00 [facility] Comment on above: Performed By: #### Beatriz HALL, BMP ####[facility] [address]u15[address] [place] [phone] THERAPY NTon 01-28-2019 THERAPY NT HNO ID: [id number] Author: Melvi Ledezma Service: Physical Therapy Author Type: Building And Grounds Supervisor Type: Therapy (PT/OT/Speech/Resp) Filed: 01/28/2019 2:55 PM Note Text: Attestation signed by Faith Grant) Gerardo at 01/31/2019 8:38 AM I reviewed and agree with the assessment as documented above. 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 THERAPY NT HNO ID: [id number] Author: Krystal De La RosaOt/LDemi Harrington Service: Occupational Therapy Author Type: Occupational Therapist Type: Therapy (PT/OT/Speech/Resp) Filed: 01/28/2019 2:32 PM Note Text: Occupational Therapy Treatment SERVICE DATE: 01/28/2019 SERVICE TIME: 1317 to 1343 ROOM: [place] [address] Recommended Discharge Disposition: Subacute/SNF Recommended Discharge Disposition [...] Functions and Awareness Interventions Provided: Therapeutic Activity (27994);Self Fdc Management (79005) Therapeutic Activity (95067) Treatment Minutes: 15 1 unit Skilled Intervention(s): [...] to supine with log roll technique. Self Fdc Management (13232) Treatment Minutes: 9 1 unit Skilled Intervention(s): [...] POC and discharge recommendation with rationale. RN, [employer] OPERATIONS ENGINEER and CM notified of pt status and [...] Care;Shopping;Transpo rtation;Wheelchair Mobility Prior Functional Level Comments: [employer] OPERATIONS ENGINEER patient reports primarily w/c/bed bound, pt is [...] DATE: January 28, 2019 TIME: 2:[address] [facility] THERAPY NT HNO ID: [id number] Author: Krystal Vasquez/Krysten Harrington Service: Occupational Therapy Author Type: Occupational Therapist Type: Therapy (PT/OT/Speech/Resp) Filed: 01/28/2019 1:09 PM Note Text: OCCUPATIONAL THERAPY MISSED VISIT SERVICE DATE: 01/28/2019 SERVICE TIME: 1305 to 1305 ROOM: [place] [address] Attempted Treatment. Patient not seen due to Eating. Will re-attempt as schedule allows. SIGNATURE: PORTILLO Hood PATIENT NAME: Jorge Covington DATE: January 28, 2019 TIME: 1:[address] [facility] Basic Metabolic Panlon 01-27 Anion gap [Moles/Vol] 10 mmol/L Normal 9-18 [facility] Comment on above: Performed By: #### Beatriz HALL BMP ####[facility] [address] [place] [address]#### FREET3 ####[facility] [place] [phone] Calcium [Mass/Vol] 9.3 mg/dL Normal 8.5-10.2 [facility] Comment on above: Performed By: #### Beatriz HALL BMP ####[facility] [address] [place] [address]#### FREET3 ####[facility] [address] [place] [phone] Chloride [Moles/Vol] 106 mmol/L High 97-105 [facility] Comment on above: Performed By: #### Beatriz HALL BMP ####[facility] [address] [place] [address]#### FREET3 ####[facility] [place], [place] [phone] CO2 [Moles/Vol] 27 mmol/L Normal 22-30 [facility] Comment on above: Performed By: #### Beatirz HALL, BMP ####[facility] [address] [place] [address]#### FREET3 ####[phone] Creatinine [Mass/Vol] 0.79 mg/dL Normal 0.73-1.22 [facility] Comment on above: Performed By: #### Beatriz HALL, BMP ####[facility] [address] [place] [address]#### FREET3 ####[place] [address] [address] [phone] eGFR- Amer. >60 Normal [facility] Comment on above: Performed By: #### Beatriz HALL, BMP ####[place] [address]#### FREET3 ####[facility]James [place] [phone] GFR/1.73 sq M predicted among non-blacks MDRD (S/P/Bld) [Vol rate/Area] mL/min/{1.73_m2} Normal [facility] Comment on above: Result Comment: eGFR (Estimated [...] actual GFR. Performed By: #### Beatriz HALL, BMP ####[place] [address]#### FREET3 ####[place] [address] [address] [phone] Glucose [Mass/Vol] 110 mg/dL High 74-99 [facility] Comment on above: Result Comment: The [place] Diabetes Association (ADA) provides guidance for cutoff [...] Standards of Medical Care in Diabetes 2016, [place] [employer]. Diabetes Care. 2016.39(Suppl 1). Performed By: #### Beatriz HALL BMP ####[place] [address]#### FREET3 ####[address] [phone] Potassium [Moles/Vol] 4.1 mmol/L Normal 3.7-5.1 [facility] Comment on above: Performed By: #### Beatriz HALL BMP ####[place] [address]#### FREET3 ####[place] [address] [address], [place] [phone] Sodium [Moles/Vol] 143 mmol/L Normal 136-144 [facility] Comment on above: Performed By: #### Beatriz HALL BMP ####[facility] Ik[address] [place] [address]#### FREET3 ####[place] [address] [address] [place], [place] [phone] Urea nitrogen [Mass/Vol] 11 mg/dL Normal 9-24 [facility] Comment on above: Performed By: #### Beatriz HALL BMP ####[place] [address]#### FREET3 ####[place] [address] [address], [place] [phone] CBCon 01-27-2019 Erythrocyte distribution width (RBC) [Ratio] 18.2 % High 11.5-15.0 [facility] Comment on above: Performed By: #### C BC, BMP ####[place] [address]#### FREET3 ####[place] [address] [address] [place] [phone] Hematocrit (Bld) [Volume fraction] 36.3 % Low 39.0-51.0 [facility] Comment on above: Performed By: #### C BC, BMP ####[place] [address]#### FREET3 ####[address] Av[address]ille [phone] Hemoglobin (Bld) [Mass/Vol] 11.3 g/dL Low 13.0-17.0 [facility] Comment on above: Performed By: #### C RAFAEL, BMP ####[place] [address]#### FREET3 ####[place] [address] [address] [place] [phone] MCH (RBC) [Entitic mass] 29.5 pG Normal 26.0-34.0 [facility] Comment on above: Performed By: #### C BC, BMP ####[place] [address]#### FREET3 ####[place] [address] [address] [place] [phone] MCHC (RBC) [Mass/Vol] 31.1 g/dL Normal 30.5-36.0 [facility] Comment on above: Performed By: #### C BC, BMP ####[place] [address]#### FREET3 ####[place] [address] [address] [place] [phone] MCV (RBC) [Entitic vol] 94.8 fL Normal 80.0-100.0 [facility] Comment on above: Performed By: #### C RAFAEL, BMP ####[facility] [address] [place] [address]#### FREET3 ####[facility] [address]sc[address]zxsifj[address] AveCSouth [place], [place] [phone] Platelet mean volume (Bld) [Entitic vol] 9.8 fL Normal 9.0-12.7 [facility] Comment on above: Performed By: #### C RAFAEL, BMP ####[place] [address]#### FREET3 ####[place] [address] [address]CCla[address] [place] [phone] Platelets (Bld) [#/Vol] 308 10*3/uL Normal 150-400 [facility] Comment on above: Performed By: #### Beatriz HALL, BMP ####[place] [address]#### FREET3 ####[place] [address] [address] [place] [phone] RBC (Bld) [#/Vol] 3.83 10*6/uL Low 4.20-6.00 [facility] Comment on above: Performed By: #### Beatriz HALL, BMP ####[place] [address]#### FREET3 ####[place] [address] [address]CCla[address] [place] [phone] WBC (Bld) [#/Vol] 8.30 10*3/uL Normal 3.70-11.00 [facility] Comment on above: Performed By: #### Beatriz HALL, BMP ####[place] [address]#### FREET3 ####[place] [address] [address] AveCSouth [place], [place] [phone] CONSULT PROGon 01-27-2019 CONSULT PROG HNO ID: [id number] Author: Brian Lewis MD Service: Endocrinology Author Type: Physician [...] DATA: Free T3/T4 levels now measurable, improving. Brian Lewis MD [facility] Endocrinology and Metabolism [place] [facility] January 27, 2019 11:17 AM Normal [facility] Free T3on 01-27-2019 Free T3 [Mass/Vol] 1.4 pg/mL Low 2.3-4.1 [facility] Comment on above: Performed By: #### C BC, BMP ####[facility] [address] [place] [phone]#### FREET3 ####[facility] Zjplbgtyihuq0074 [place], [place] [phone] Free T4on 01-27-2019 Free T4 [Mass/Vol] 1.3 ng/dL Normal 0.9-1.7 [facility] Comment on above: Performed By: #### F T4 ####[place] 8[address]5400 [place], [place] [phone] NUTRITIONon 01-27-2019 NUTRITION HNO ID: [id number] Author: Yue Marquez Service: Nutrition Therapy Author [...] DATE: January 27, 2019 TIME: 5:[address] [facility] PROGRESSon 01-27-2019 PROGRESS HNO ID: [id number] Author: Shirley Romo Service: ? Author Type: [...] ? 68 14 97 % ? ? 01/26/198 ? ? ? 64 20 97 % [...] HOURS 01/22/192228 -- 01/22/192229 pneumatic compression stockings (me,oh) 01/22/191814 vte non-pharmacologic prophylaxis - none indicated (me,oh) 01/22/191814 activity - mobilize patient ([place], [place]) VTE Prophylaxis: VTE prophylaxis appropriate SIGNATURE: Shirley Romo DO PATIENT NAME: Jorge Covington DATE: January 27, 2019 TIME: 3:44 PM PAGER/CONTACT #: [phone] [facility] ALLIED HEALTHon 01-26-2019 ALLIED HEALTH HNO ID: [id number] Author: DAVID Sykes (Ct) Service: ? Author Type: Clinical Manufacturing Worker Type: Allied Health Filed: 01/26/2019 6:13 AM [...] DAVID Sykes January 26, 2019 6:[address] [facility] Basic Metabolic Panlon 01-26 Anion gap [Moles/Vol] 11 mmol/L Normal 9-18 [facility] Comment on above: Performed By: #### T SH #### [facility] [address] [place] [address] Calcium [Mass/Vol] 9.4 mg/dL Normal 8.5-10.2 [facility] Comment on above: Performed By: #### T SH #### [facility] [address] [place] [address] Chloride [Moles/Vol] 109 mmol/L High 97-105 [facility] Comment on above: Performed By: #### T SH #### [facility] [address] [place] [address] CO2 [Moles/Vol] 27 mmol/L Normal -30 [facility] Comment on above: Performed By: #### T SH #### [facility] [address] [facility] [phone] Creatinine [Mass/Vol] 0.70 mg/dL Low 0.73-1.22 [facility] Comment on above: Performed By: #### T SH #### [facility] [address] [facility] [phone] eGFR- Amer. >60 Normal [facility] Comment on above: Performed By: #### T SH #### [facility] [address] [facility] [phone] GFR/1.73 sq M predicted among non-blacks MDRD (S/P/Bld) [Vol rate/Area] mL/min/{1.73_m2} Normal [facility] Comment on above: Result Comment: eGFR (Estimated [...] GFR. Performed By: #### T SH #### [facility] [address] [facility] [phone] Glucose [Mass/Vol] 128 mg/dL High 74-99 [facility] Comment on above: Result Comment: The [place] [employer] (ADA) provides guidance for cutoff [...] Standards of Medical Care in Diabetes 2016, [place] [employer]. Diabetes Care. 2016.39(Suppl 1). Performed By: #### T SH #### [facility] [address] [facility] [phone] Potassium [Moles/Vol] 3.9 mmol/L Normal 3.7-5.1 [facility] Comment on above: Performed By: #### T SH #### [facility] [address] [facility] [phone] Sodium [Moles/Vol] 147 mmol/L High 136-144 [facility] Comment on above: Performed By: #### T SH #### [facility] [address] [facility] [phone] Urea nitrogen [Mass/Vol] 9 mg/dL Normal 9-24 [facility] Comment on above: Performed By: #### T SH #### [facility] [address] [facility] [phone] CASE MANAGEMon 01-26-2019 CASE MANAGEM HNO ID: [id number] Author: Kari Lowe) VIKTOR Toscano Service: ? Author Type: Registered [...] patient. Patient sates he is agreeable to residential facility at discharge. VIKTOR PAVON provided and offered to read patient the [facility] Provider list for SNF choices patient states he does not have his glasses to read himself. Patient declines offer and requests that VIKTOR PAVON call his spouse Abraham for residential facility choices. Patient provided his spouses contact information [phone]. VIKTOR PAVON called and spoke to Abraham and read her the [facility] Provider List for SNF. FREEDOM OF CHOICE GIVEN: Yes Raven of choice explained to patient and patients spouse Abraham. Financial Disclosure Provided The patient and/or family has been given the Provider List: Yes Provider List: Retirement Facility Preference: Retirement Facility: [facility]. [facility] - [phone] 2. [facility] - [phone] 3. [facility] - [phone] Referrals sent in Allscripts to SNF choices. SIGNATURE: Kari Toscano RN PATIENT NAME: Jorge Covington DATE: January 26, 2019 TIME: 11:21 AM PAGER/CONTACT #: [phone] Normal [facility] CBCon 01-26-2019 Erythrocyte distribution width (RBC) [Ratio] 18.0 % High 11.5-15.0 [facility] Comment on above: Performed By: #### T SH #### [facility] [address]5160 Hematocrit (Bld) [Volume fraction] 37.7 % Low 39.0-51.0 [facility] Comment on above: Performed By: #### T SH #### [facility] [address]5160 Hemoglobin (Bld) [Mass/Vol] 12.0 g/dL Low 13.0-17.0 [facility] Comment on above: Performed By: #### T SH #### [facility] [address] [place] [phone] MCH (RBC) [Entitic mass] 29.6 pG Normal 26.0-34.0 [facility] Comment on above: Performed By: #### T SH #### [facility] 999 [facility] [phone] MCHC (RBC) [Mass/Vol] 31.8 g/dL Normal 30.5-36.0 [facility] Comment on above: Performed By: #### T SH #### [facility] 999 [facility] [phone] MCV (RBC) [Entitic vol] 93.1 fL Normal 80.0-100.0 [facility] Comment on above: Performed By: #### T SH #### [facility] 999 [facility] [phone] Platelet mean volume (Bld) [Entitic vol] 9.9 fL Normal 9.0-12.7 [facility] Comment on above: Performed By: #### T SH #### [facility] 999 [facility] [phone] Platelets (Bld) [#/Vol] 334 10*3/uL Normal 150-400 [facility] Comment on above: Performed By: #### T SH #### [facility] 1000 [facility] [phone] RBC (Bld) [#/Vol] 4.05 10*6/uL Low 4.20-6.00 [facility] Comment on above: Performed By: #### T SH #### [facility] 1000 [facility] [phone] WBC (Bld) [#/Vol] 7.97 10*3/uL Normal 3.70-11.00 [facility] Comment on above: Performed By: #### T SH #### [facility] 1000 [facility] [phone] Free T3on 01-26-2019 Free T3 [Mass/Vol] 1.3 pg/mL Low 2.3-4.1 [facility] Comment on above: Performed By: #### F REET3 ####[facility] [place], [place] [phone] Free T3 [Mass/Vol] Duplicate request Normal 2.3-4.1 [facility] Comment on above: Performed By: #### T SH #### [facility] 999 [facility] [phone] Free T4on 01-26-2019 Free T4 [Mass/Vol] Duplicate request Normal 0.9-1.7 [facility] Comment on above: Performed By: #### C BC, BMP, MG1, PHOS, FREET3, FT4 ####[facility] [address] [place], [place] [phone] Magnesiumon 01-26-2019 Magnesium [Mass/Vol] 2.1 mg/dL Normal 1.7-2.3 [facility] Comment on above: Performed By: #### T SH #### [facility] 999 [facility] [phone] NURSING PROGon 01-26-2019 NURSING PROG HNO ID: [id number] Author: Lesly (Rn) VIKTOR Borrego Service: Nursing Author Type: Registered Nurse Type: Nursing Progress Note Filed: 01/26/2019 10:13 PM Note Text: Nursing Progress Note Patient Name: Jorge Covington Patient Location: [place] 277114/[facility]0264 -1 Transfer Note: Patient transferred into room/unit 264 in stable condition. Actions taken: No futher actions taken at this time. Will continue to monitor and check with patient. This note was completed by: Lesly Borrego RN [facility] NURSING PROG HNO ID: [id number] Author: Goran De La RosaRnDemi Thomas RN Service: ? Author Type: Registered Nurse Type: Nursing Progress Note Filed: 01/26/2019 9:31 PM Note Text: Nursing Progress Note Patient Name: Jorge Covington Patient Location: [facility]-0001 -1 Daily Note 212- Transferred via bed out of icu 1 to RM#264 via bed on 2L. All belongings sent with patient. VSS. Safety maintained. This note was completed by: Goran Thomas Rn [facility] PLAN OF CAREon 01-26-2019 PLAN OF CARE HNO ID: [id number] Author: Rossi Farmer Service: Endocrinology Author Type: Physician Type: Plan of Care Filed: 01/26/2019 11:11 AM Note Text: Plan of Care: -- monitoring thyroid labs daily with you -- no change today -- continue IV levothyroxine 150 mcg -- Free t4 daily -- TSH Thursday -- Will return Thursday to bedside and make comments when TSH returns Rossi Farmer MD [facility] PROGRESSon 01-26-2019 PROGRESS HNO ID: [id number] Author: Merrick Kuhn Service: Critical Care Author [...] the A/P section below. Please refer to GetYourGuide for list of inpatient medications. 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 Current Assessment AND Plan Assessment: H/O Hypothyroidism On Po Levothyroxine stopped taking as ran out of prescriptons PLAN: Endocrinology on board IV Levothyroxine Daily thyroid studies TSH on Thursday Pulmonary COPD (chronic obstructive pulmonary disease) ([facility]) 06/08/2018 - Present Acute respiratory failure ([facility]) 01/22/2019 - Present Current Assessment AND Plan Assessment: Intubated 01/22 overnight ---> Extubated 01/25 PLAN: Continue scheduled nebs Aggressive pulm toilet OOB ISS Infectious Disease Septicemia ([facility]) 01/23/2019 - Present Current Assessment AND Plan [...] HOURS 01/22/192228 -- 01/22/192229 pneumatic compression stockings (me,ut) 01/22/191814 vte non-pharmacologic prophylaxis - none indicated (me,oh) 01/22/191814 activity - mobilize patient (me,ut) VTE Prophylaxis: VTE prophylaxis appropriate Plan of care discussed with: Provider, RN, Patient SIGNATURE: Camila Rizvi MD PATIENT NAME: Jorge Covington DATE: January 26, 2019 TIME: 11:16 AM PAGER/CONTACT #: [phone] ICU STAFF PHYSICIAN NOTE OF PERSONAL INVOLVEMENT [...] monitoring D/w Dr.Esterle Desai for transfer to [facility] I have reviewed and verified the recent history and physical examination obtained and documented by fellow and I personally participated in the hodges components. I have discussed the case and management of the patient's care, exclusive of separately billed procedures which fulfilled the standards for LEVEL 3. SIGNATURE: Merrick Kuhn MD DATE: 01/26/2019 TIME: 2:[address] [facility] PROGRESS HNO ID: [id number] Author: Shirley Romo Service: ? Author Type: [...] ?C (97.4 ?F) Temporal ? ? ? 01/25/199 ? ? ? 62 13 97 % [...] HOURS 01/22/192228 -- 01/22/192229 pneumatic compression stockings (me,ut) 01/22/191814 vte non-pharmacologic prophylaxis - none indicated (me,ut) 01/22/191814 activity - mobilize patient ([place], [place]) VTE Prophylaxis: VTE prophylaxis appropriate SIGNATURE: Shirley Romo DO PATIENT NAME: Jorge Covington DATE: January 26, 2019 TIME: 10:09 AM PAGER/CONTACT #: [phone] Normal [facility] Phosphoruson 01-26-2019 Phosphate [Mass/Vol] 2.9 mg/dL Normal 2.7-4.8 [facility] Comment on above: Performed By: #### T #### [facility] [address] [place] [address] THERAPY NTon 01-26-2019 THERAPY NT HNO ID: [id number] Author: Drea (Ot/LDemi Burciaga Service: Occupational Therapy Author Type: Occupational Therapist Type: Therapy (PT/OT/Speech/Resp) Filed: 01/28/2019 1:50 PM Note Text: Occupational Therapy Evaluation SERVICE DATE: 01/26/2019 SERVICE TIME: 1350 to 1425 ROOM: [id number] Recommended Discharge Disposition: Subacute/SNF Recommended Discharge Disposition [...] and Awareness Interventions Provided: Evaluation;Therapeuti c Activity (48675);Self Fdc Management (92891) $ Evaluation-Moderate (13986) Billed Units: 1 unit Therapeutic Activity (97508) Treatment Minutes: 15 1 unit Skilled Intervention(s): [...] self care activities while EOB sitting Self Fdc Management (96241) Treatment Minutes: 10 1 unit Skilled Intervention(s): [...] Care;Shopping;Transpo rtation;Wheelchair Mobility Prior Functional Level 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 THERAPY NT HNO ID: [id number] Author: Faith (Pt) Gerardo Service: Physical Therapy Author Type: Physical Therapist Type: Therapy (PT/OT/Speech/Resp) Filed: 01/26/2019 10:41 AM Note Text: Physical Therapy Evaluation SERVICE DATE: 01/26/2019 SERVICE TIME: 08 to 0946 ROOM: [place] [address] Recommended Discharge Disposition: Subacute/SNF Recommended Discharge Disposition [...] at approach (recently weaned from 2LO2 per [employer]), requires reapplication of 2LO2 during session to [...] Reduced mobility-other Interventions Provided: Evaluation;Therapeuti c Exercise (25993);Therapeutic Activity (32634);Neuromuscular Reeducation (89485) $ Evaluation-Moderate (80946) Billed Units: 1 unit Therapeutic Exercise (85982) Treatment Minutes: 6 Skilled Intervention(s): Instruction in [...] >90% and up to 92% Therapeutic Activity (82545) Treatment Minutes: 8 1 unit Skilled Intervention(s): [...] home PT (pt active with home PT [employer] ENGINE[employer] and requesting preference for return to home [...] for proper deep breathing techniques Neuromuscular Re-Education (95010) Treatment Minutes: 10 1 unit Skilled Intervention(s): [...] Care;Shopping;Transpo rtation;Wheelchair Mobility Prior Functional Level Comments: [employer]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 SIGNATURE: Faith Carrillo, PT PATIENT NAME: Jorge Covington DATE: January 26, 2019 TIME: 10:[address] [facility] XR CHEST 1V FRONTALon 2018 XR [...] cervical spine fusion. IMPRESSION: Mild bibasilar atelectasis. Medical Science Liaison: PSCB Transcribe Date/Time: Jan 26 2019 6:34A Dictated by : RELL SIERRA MD This examination was interpreted and the report reviewed and electronically signed by: RELL SIERRA MD on Jan 26 2019 6:58AM EST [id number] [facility] ALLIED HEALTHon 01-25-2019 ALLIED HEALTH HNO ID: [id number] Author: Kannan Block (Rt) Service: Radiology Author Type: Manufacturing Worker Type: Allied Health Filed: 01/25/2019 6:24 AM [...] RT Umair January 25, 2019 6:[address] [facility] Basic Metabolic Panlon 01-25 Anion gap [Moles/Vol] 8 mmol/L Low 9-18 [facility] Comment on above: Performed By: #### C BC, BMP, MG1, PHOS ####[facility] [address] Calcium [Mass/Vol] 8.8 mg/dL Normal 8.5-10.2 [facility] Comment on above: Performed By: #### C BC, BMP, MG1, PHOS ####[facility] [address] [place] [address] Chloride [Moles/Vol] 104 mmol/L Normal 97-105 [facility] Comment on above: Performed By: #### C BC, BMP, MG1, PHOS ####[facility] [address] [place] [phone] CO2 [Moles/Vol] 25 mmol/L Normal 22-30 [facility] Comment on above: Performed By: #### C BC, BMP, MG1, PHOS ####[facility] [address] [place] [address] Creatinine [Mass/Vol] 0.95 mg/dL Normal 0.73-1.22 [facility] Comment on above: Performed By: #### C BC, BMP, MG1, PHOS ####[facility] [address] [place] [address] eGFR- Amer. >60 Normal [facility] Comment on above: Performed By: #### C BC, BMP, MG1, PHOS ####[facility] [address] [place] [address] GFR/1.73 sq M predicted among non-blacks MDRD (S/P/Bld) [Vol rate/Area] mL/min/{1.73_m2} Normal [facility] Comment on above: Result Comment: eGFR (Estimated [...] By: #### C BC, BMP, MG1, PHOS ####[facility] [address] [place] [address] Glucose [Mass/Vol] 105 mg/dL High 74-99 [facility] Comment on above: Result Comment: The [place] Diabetes Association (ADA) provides guidance for cutoff [...] Standards of Medical Care in Diabetes 2016, [place] [employer]. Diabetes Care. 2016.39(Suppl 1). Performed By: #### C BC, BMP, MG1, PHOS ####[facility] [address] [place] [address] Potassium [Moles/Vol] 3.5 mmol/L Low 3.7-5.1 [facility] Comment on above: Performed By: #### C BC, BMP, MG1, PHOS ####[facility] [address] [place] [address] Sodium [Moles/Vol] 137 mmol/L Normal 136-144 [facility] Comment on above: Performed By: #### C BC, BMP, MG1, PHOS ####[facility] [address] [place] [address] Urea nitrogen [Mass/Vol] 12 mg/dL Normal 9-24 [facility] Comment on above: Performed By: #### C BC, BMP, MG1, PHOS ####[facility] [address] [place] [address] CASE MANAGEMon 01-25-2019 CASE MANAGEM HNO ID: [id number] Author: Kari (Rn) VIKTOR Toscano Service: ? [...] (Hcc) Septicemia (Hcc) Attendees Present at Rounds: Clerical Methods Analyst: Kari Toscano Pharmacy: [facility] Provider: Merrick Kuhn and Camila Rizvi Staff Nurse: Giovanni Mckeon Needs Discussed on Rounds: Plan of Care Anticipated Discharge Disposition: Home with Home Health Care vs Retirement Facility Home Health Care Referral: [facility] [phone] - Yes willing to accept for services. [...] January 25, 2019 TIME: 11:52 AM CSN: [id number] Normal [facility] CBCon 01-25-2019 Erythrocyte distribution width (RBC) [Ratio] 18.4 % High 11.5-15.0 [facility] Comment on above: Performed By: #### N TBNP #### [facility] [address] [place] [address] Hematocrit (Bld) [Volume fraction] 35.2 % Low 39.0-51.0 [facility] Comment on above: Performed By: #### N TBNP #### [facility] [address] [place], [place] [address] Hemoglobin (Bld) [Mass/Vol] 11.0 g/dL Low 13.0-17.0 [facility] Comment on above: Performed By: #### N TBNP #### [facility] [address] [place], [place] [phone] MCH (RBC) [Entitic mass] 29.3 pG Normal 26.0-34.0 [facility] Comment on above: Performed By: #### N TBNP #### [facility] [address] [place], [place] [phone] MCHC (RBC) [Mass/Vol] 31.3 g/dL Normal 30.5-36.0 [facility] Comment on above: Performed By: #### N TBNP #### [facility] [address] [place], [place] [phone] MCV (RBC) [Entitic vol] 93.6 fL Normal 80.0-100.0 [facility] Comment on above: Performed By: #### N TBNP #### [facility] [address] [place], [place] [phone] Platelet mean volume (Bld) [Entitic vol] 9.7 fL Normal 9.0-12.7 [facility] Comment on above: Performed By: #### N TBNP #### [facility] 1000 [facility] [phone] Platelets (Bld) [#/Vol] 335 10*3/uL Normal 150-400 [facility] Comment on above: Performed By: #### N TBNP #### [facility] 1000 [facility] [phone] RBC (Bld) [#/Vol] 3.76 10*6/uL Low 4.20-6.00 [facility] Comment on above: Performed By: #### N TBNP #### [facility] 1000 [facility] [phone] WBC (Bld) [#/Vol] 7.63 10*3/uL Normal 3.70-11.00 [facility] Comment on above: Performed By: #### N TBNP #### [facility] 1000 [facility] [phone] CONSULT PROGon 01-25-2019 CONSULT PROG HNO ID: [id number] Author: Rossi Vásquez) Marleny Service: Endocrinology Author [...] behaviour normal Rossi Farmer MD [facility] Endocrinology and Metabolism [place] [facility] January 25, 2019 5:[address] [facility] CONSULT PROG HNO ID: [id number] Author: Justin Davila Service: Pulmonary Disease Author Type: Physician Type: Consult Progress Note Filed: 01/28/2019 10:14 AM Note Text: Patient extubated with no ongoing pulmonary issues. Will sign off-discussed with ICU attending [facility] Free T3on 01-25-2019 Free T3 [Mass/Vol] 1.4 pg/mL Low 2.3-4.1 [facility] Comment on above: Performed By: #### T SH #### [facility] [address] [facility] [phone] Free T4on 01-25-2019 Free T4 [Mass/Vol] 0.6 ng/dL Low 0.9-1.7 [facility] Comment on above: Performed By: #### T SH #### [facility] [address] [facility] [phone] Magnesiumon 01-25-2019 Magnesium [Mass/Vol] 1.8 mg/dL Normal 1.7-2.3 [facility] Comment on above: Performed By: #### C BC, BMP, MG1, PHOS ####[facility] [address] [place], [place] 025580-721-5160 NURSING PROGon 01-25-2019 NURSING PROG HNO ID: [id number] Author: Britta Mina (Rn) VIKTOR Dorado Service: Nursing Author Type: Registered Nurse Type: Nursing Progress Note Filed: 01/25/2019 7:01 AM Note Text: Nursing Progress: Topic: RESTRAINT NON-VIOLENT PATIENT NAME: Jorge Covington PATIENT LOCATION: [place] [address]/[facility]2329 -1 The patient demonstrates Attempting to Remove [...] NON-VIOLENT PATIENT NAME: Jorge Covington PATIENT LOCATION: [facility] -1 The patient demonstrates Attempting to Remove [...] 2019 TIME: 7:00 AM Britta Dorado RN [facility] ID: [id number] Author: Giovanni Lowe) VIKTOR Mckeon Service: Nursing Author Type: Registered Nurse Type: Nursing Progress Note Filed: 01/25/2019 2:33 PM Note Text: Nursing Progress Note Patient Name: Jorge Covington Patient Location: [facility]-2329/[facility] -[facility] Daily Note: 01/25/19 1030: Restraints DC'd post extubation. 1115: Call to , Dasia, regarding patient updates of overall status and extubation. This note was completed by: Giovanni Mckeon RN [facility] NURSING PROG HNO ID: [id number] Author: Giovanni (Rn) VIKTOR Mckeon Service: Nursing Author Type: Registered Nurse Type: Nursing Progress Note Filed: 01/25/2019 9:54 AM Note Text: Nursing Progress: Topic: RESTRAINT NON-VIOLENT PATIENT NAME: Jorge Covington PATIENT LOCATION: [place] [address]/[place] [address] The patient demonstrates Attempting to Remove Medical [...] 2019 TIME: 9:53 AM Giovanni Mckeon RN [facility] PROGRESSon 01-25-2019 PROGRESS HNO ID: [id number] Author: Shirley Romo Service: ? Author Type: [...] 01/22/199 -- 01/22/19 223 pneumatic compression stockings (me,ut) 01/22/19 181 vte non-pharmacologic prophylaxis - none indicated (me,ut) 01/22/19 181 activity - mobilize patient ([place], [place]) VTE Prophylaxis: VTE prophylaxis appropriate SIGNATURE: Shirley Romo DO PATIENT NAME: Jorge Covington DATE: January 25, 2019 TIME: 11:46 AM PAGER/CONTACT #: [phone] [facility] PROGRESS HNO ID: [id number] Author: Merrick Kuhn Service: Critical Care Author [...] the A/P section below. Please refer to [facility] for list of inpatient medications. 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 Current Assessment AND Plan Assessment: H/O Hypothyroidism On Po Levothyroxine stopped taking as ran out of prescriptons PLAN: Endocrinology on board IV Levothyroxine Daily thyroid studies Pulmonary COPD (chronic obstructive pulmonary disease) ([facility]) 06/08/2018 - Present Acute respiratory failure ([facility]) 01/22/2019 - Present Current Assessment AND Plan Assessment: Intubated 01/22 overnight ---> Extubated 01/25 PLAN: Continue scheduled nebs Aggressive pulm toilet OOB ISS Infectious Disease Septicemia ([facility]) 01/23/2019 - Present Current Assessment AND Plan [...] HOURS 01/22/192228 -- 01/22/192229 pneumatic compression stockings (me,oh) 01/22/191814 vte non-pharmacologic prophylaxis - none indicated (me,oh) 01/22/191814 activity - mobilize patient (me,ut) VTE Prophylaxis: VTE prophylaxis appropriate Plan of care discussed with: Provider, RN, Patient SIGNATURE: Camila Rizvi MD PATIENT NAME: Jorge Covington DATE: January 25, 2019 TIME: 11:20 AM PAGER/CONTACT #: [phone] ICU STAFF PHYSICIAN NOTE OF PERSONAL INVOLVEMENT [...] January 25, 2019 TIME: 1:24 PM Normal [facility] Phosphoruson 01-25-2019 Phosphate [Mass/Vol] 3.6 mg/dL Normal 2.7-4.8 [facility] Comment on above: Result Comment: Rech ecked Performed By: #### C BC, BMP, MG1, PHOS ####[facility] [phone] XR CHEST 1V FRONTALon 2018 XR CHEST [...] Cardiomediastinal silhouette: Stable cardiomediastinal silhouette. Other: . Medical Science Liaison: PSCB Transcribe Date/Time: Jan 25 2019 8:20A Dictated by : NADJA DONNELLY MD This examination was interpreted and the report reviewed and electronically signed by: NADJA DONNELLY MD on Jan 25 2019 8:22AM EST [id number] [facility] ALLIED HEALTHon 01-24-2019 ALLIED HEALTH HNO ID: [id number] Author: Kannan Nicole (Rt) Service: Radiology Author Type: Manufacturing Worker Type: Allied Health Filed: 01/24/2019 11:14 AM [...] RT Bonnie January 24, 2019 11:[address] [facility] Basic Metabolic Panlon 01-24 Anion gap [Moles/Vol] 12 mmol/L Normal 9-18 [facility] Comment on above: Performed By: #### C BCDIF, CMP #### [facility] [address] [place] [address] Calcium [Mass/Vol] 8.9 mg/dL Normal 8.5-10.2 [facility] Comment on above: Performed By: #### C BCDIF, CMP #### [facility] [address] [place] [address] Chloride [Moles/Vol] 105 mmol/L Normal 97-105 [facility] Comment on above: Performed By: #### C BCDIF, CMP #### [facility] [address] [place] [address] CO2 [Moles/Vol] 23 mmol/L Normal 22-30 [facility] Comment on above: Performed By: #### C BCDIF, CMP #### [facility] [address] [place] [address] Creatinine [Mass/Vol] 0.94 mg/dL Normal 0.73-1.22 [facility] Comment on above: Performed By: #### C BCDIF, CMP #### [facility] [address] [place] [address] eGFR- Amer. >60 Normal [facility] Comment on above: Performed By: #### C BCDIF, CMP #### [facility] [address] [place], [place] [address] GFR/1.73 sq M predicted among non-blacks MDRD (S/P/Bld) [Vol rate/Area] mL/min/{1.73_m2} Normal [facility] Comment on above: Result Comment: eGFR (Estimated [...] Performed By: #### C BCDIF, CMP #### [facility] [address] [place] [address] Glucose [Mass/Vol] 127 mg/dL High 74-99 [facility] Comment on above: Result Comment: The [place] [employer] (ADA) provides guidance for cutoff [...] Standards of Medical Care in Diabetes 2016, [place] [employer]. Diabetes Care. 2016.39(Suppl 1). Performed By: #### C BCDIF, CMP #### [facility] [address] [place] [address] Potassium [Moles/Vol] 4.0 mmol/L Normal 3.7-5.1 [facility] Comment on above: Performed By: #### C BCDIF, CMP #### [facility] [address] [place] [address] Sodium [Moles/Vol] 140 mmol/L Normal 136-144 [facility] Comment on above: Performed By: #### C BCDIF, CMP #### [facility] [address] [place] [address] Urea nitrogen [Mass/Vol] 8 mg/dL Low 9-24 [facility] Comment on above: Performed By: #### C BCDIF, CMP #### [facility] [address] [place] [address] Blood Cultureon 01-24-2019 Bacteria identified Cx Nom (Bld) Culture Result - No growth [address] [facility] Comment on above: Performed By: #### B LCUL ####[facility] [place], [place] [phone] Bacteria identified Cx Nom (Bld) Culture Result - No growth 5 days Normal [facility] Comment on above: Performed By: #### B LCUL ####[facility] [address] [place], [place] [phone] CASE MGT INIT Garo 2018 CASE MGT INIT DOE HNO ID: [id number] Author: Chastity Simeon (Sw) Service: ? Author Type: Storage Worker Type: Care Mgt Initial Assessment Filed: 01/24/2019 12:09 PM Note Text: CARE MANAGEMENT: ASSESSMENT AND DISCHARGE PLAN SERVICE DATE: 01/24/2019 SERVICE TIME: 11:45 am PRIMARY CARE PHYSICIAN: Brian Zimmerman MD - confirmed with pt's spouse ADMISSION [...] Current Advance Directive: Health Care Power of Career Services Representative In Chart: Yes Up To Date and [...] Extended Emergency Contact Information Primary Emergency Contact: CésarDasia Address: [address] [place] [address] OF [employer] Relation: Spouse Supportive: Yes [...] 0 I feel financially burdened by my tmb-wt-ukjbcy expenses for my prescription medication: Disagree completely [...] decision yet. Spouse may need list of [place] facilities and OZ explained CM able to provide. Pt's spouse requested OZ call VIKTOR Ewing at [phone] to see which agency she works for [...] 24, 2019 TIME: 11:59 AM PAGER/CONTACT #: [phone] Normal [facility] CBCon 01-24-2019 Erythrocyte distribution width (RBC) [Ratio] 18.2 % High 11.5-15.0 [facility] Comment on above: Performed By: #### C BCDARI, CMP #### [facility] [address] [place] [address] Hematocrit (Bld) [Volume fraction] 36.3 % Low 39.0-51.0 [facility] Comment on above: Performed By: #### C BCDIF, CMP #### [facility] [address] [facility] [phone] Hemoglobin (Bld) [Mass/Vol] 11.7 g/dL Low 13.0-17.0 [facility] Comment on above: Performed By: #### C BCDIF, CMP #### [facility] [address] [facility] [phone] MCH (RBC) [Entitic mass] 29.8 pG Normal 26.0-34.0 [facility] Comment on above: Performed By: #### C BCDIF, CMP #### [facility] [address] MCHC (RBC) [Mass/Vol] 32.2 g/dL Normal 30.5-36.0 [facility] Comment on above: Performed By: #### C BCDIF, CMP #### [facility] [address] [place] [phone] MCV (RBC) [Entitic vol] 92.4 fL Normal 80.0-100.0 [facility] Comment on above: Performed By: #### C BCDIF, CMP #### [facility] [address] [place] [phone] Platelet mean volume (Bld) [Entitic vol] 9.7 fL Normal 9.0-12.7 [facility] Comment on above: Performed By: #### C BCDIF, CMP #### [facility] [address] [facility] [phone] Platelets (Bld) [#/Vol] 382 10*3/uL Normal 150-400 [facility] Comment on above: Performed By: #### C BCDIF, CMP #### [facility] [address] [place] [phone] RBC (Bld) [#/Vol] 3.93 10*6/uL Low 4.20-6.00 [facility] Comment on above: Performed By: #### C BCDIF, CMP #### [facility] [address] [place] [phone] WBC (Bld) [#/Vol] 9.60 10*3/uL Normal 3.70-11.00 [facility] Comment on above: Performed By: #### C BCDIF, CMP #### [facility] [address] [facility] [phone] CONSULT PROGon 01-24-2019 CONSULT PROG HNO ID: [id number] Author: Justin Davila Service: Pulmonary Disease Author Type: Physician Type: Consult Progress Note Filed: 01/24/2019 11:19 AM Note Text: [facility] PULMONARY MEDICINE IN-PATIENT CONSULT PROGRESS NOTE [...] pathology data. Justin Davila MD Staff, Respiratory [place] [facility] Pager #[phone] SUBJECTIVE CHIEF COMPLAINT: Respiratory failure INTERVAL HPI:Jorge [...] ? ? (!) 54 18 98 % 10/28/19 0100 146/83 ? ? (!) 54 18 [...] ? ? (!) 56 7 93 % 01/23/19 1955 ? ? ? (!) 54 18 ? [...] 24, 2019 TIME: 11:06 AM PAGER/CONTACT #: [phone] [facility] CONSULT PROG HNO ID: [id number] Author: Sandra Simon Service: Endocrinology Author Type: [...] Units SUBCUTANEOUS q 12 H Gayatri E (Program Arranger) Sly 5,000 Units at 01/24/19 0957 - cefTRIAXone 1 g in D5W 100 mL MB+ (ROCEPHIN) 1 g INTRAVENOUS q 24 H Gayatri E (Program Arranger) Sly 200 mL/hr at 01/24/19 0955 1 g at 01/24/19 0955 - propofol infusion (DIPRIVAN) 5-60 mcg/kg/min INTRAVENOUS CONTINUOUS Gayatri E (Program Arranger) Sly CURRENT ALLERGIES: Allergies As of Date: [...] Simon MD DATE: January 24, 2019 Normal [facility] Cortisolon 01-24-2019 Cortisol 2.9 ug/dL Normal [facility] Comment on above: Result Comment: Carlo isol Reference Range: AM = 5.3-22.5, PM = 3.4-16.8 Performed By: #### N TBNP #### [facility] [address] [place] [address] Free T3on 01-24-2019 Free T3 [Mass/Vol] 1.0 pg/mL Low 2.3-4.1 [facility] Comment on above: Performed By: #### N TBNP #### [facility] [address] [place] [address] Free T4on 01-24-2019 Free T4 [Mass/Vol] 0.5 ng/dL Low 0.9-1.7 [facility] Comment on above: Performed By: #### N TBNP #### [facility] [address] [place] [address] Performed By: #### C BCDIF, CMP #### [facility] [address] [place] [address] Magnesiumon 01-24-2019 Magnesium [Mass/Vol] 1.9 mg/dL Normal 1.7-2.3 [facility] Comment on above: Performed By: #### C BCDIF, CMP #### [facility] [address] [place] [address] NURSING PROGon 01-24-2019 NURSING PROG HNO ID: [id number] Author: Alessandra (Rn) VIKTOR Norton Service: Nursing Author Type: Registered Nurse Type: Nursing Progress Note Filed: 01/24/2019 12:49 PM Note Text: Nursing Progress: Topic: RESTRAINT NON-VIOLENT PATIENT NAME: Jorge Covington PATIENT [facility]ATION: [facility]-IC-0001 -1 The patient demonstrates Attempting to Remove [...] 2019 TIME: 12:49 PM Alessandra Norton RN [facility] NUTRITIONon 01-24-2019 NUTRITION HNO ID: [id number] Author: Laurie Gonzalez Service: Nutrition Therapy Author [...] lb) 01/12/18 : 104.3 kg (230 lb) [place] Body Weight: 63.8kg Resting Metabolic Rate: 1809 Estimated kilocalorie needs: 3096-1620 kilocalories determined by 25-30 kcal/kg Estimated protein needs:65-83 grams determined by 1.0-1.3 g/kg [place] weight Estimated fluid needs: 1152-8460 milliliters based on 1 mL per kcal [...] January 24, 2019 TIME: 12:03 PM PAGER: [facility] PROGRESSon 01-24-2019 PROGRESS HNO ID: [id number] Author: Merrick Kuhn Service: Critical Care Author [...] the A/P section below. Please refer to Epic for list of inpatient medications. 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 Current Assessment AND Plan Assessment: H/O Hypothyroidism On Po Levothyroxine stopped taking as ran out of prescriptons PLAN: Endocrinology on board IV Levothyroxine Daily thyroid studies Pulmonary COPD (chronic obstructive pulmonary disease) ([facility]) 06/08/2018 - Present Acute respiratory failure ([facility]) 01/22/2019 - Present Current Assessment AND Plan Assessment: Intubated 01/22 overnight PLAN: Lung protective ventilation Wean as tolerated Infectious Disease Septicemia ([facility]) 01/23/2019 - Present Current Assessment AND Plan [...] HOURS 01/22/192228 -- 01/22/192229 pneumatic compression stockings (me,ut) 01/22/191814 vte non-pharmacologic prophylaxis - none indicated (me,ut) 01/22/191814 activity - mobilize patient ([place], [place]) VTE Prophylaxis: VTE prophylaxis appropriate Plan of care discussed with: Provider, RN, Patient SIGNATURE: Camila Rizvi MD PATIENT NAME: Jorge Covington DATE: January 24, 2019 TIME: 11:40 AM PAGER/CONTACT #: [phone] ICU STAFF PHYSICIAN NOTE OF PERSONAL INVOLVEMENT [...] Kuhn MD DATE: 01/24/2019 TIME: 3:[address] [facility] PROGRESS HNO ID: [id number] Author: Shirley Romo Service: ? Author Type: [...] uti cultures pending GNB septicemia on rocephin nahunley urine source Distended bowel loops due to [...] EVERY 12 HOURS 01/22/19 2229 -- 01/22/19 223 pneumatic compression stockings (me,ut) 01/22/19 181 vte non-pharmacologic prophylaxis - none indicated (me,ut) 01/22/19 181 activity - mobilize patient ([place], [place]) VTE Prophylaxis: VTE prophylaxis appropriate SIGNATURE: Shirley Romo DO PATIENT NAME: Jorge Covington DATE: January 24, 2019 TIME: 9:38 AM PAGER/CONTACT #: [phone] Normal [facility] Phosphoruson 01-24-2019 Phosphate [Mass/Vol] 1.6 mg/dL Low 2.7-4.8 [facility] Comment on above: Performed By: #### C JAKE CMP #### [facility] [address] [facility] [phone] T3on 01-24-2019 T3 26 ng/dL Low 79-165 [facility] Comment on above: Performed By: #### C BCDARI CMP #### [facility] [address] [facility] [phone] THERAPY NTon 01-24-2019 THERAPY NT HNO ID: [id number] Author: Faith De La RosaOtDemi Chew Service: Occupational Therapy Author Type: Occupational Therapist Type: Therapy (PT/OT/Speech/Resp) Filed: 01/24/2019 1:33 PM Note Text: OCCUPATIONAL THERAPY MISSED VISIT SERVICE DATE: 01/24/2019 SERVICE TIME: 1323 to 1323 ROOM: [place] [address] Attempted Evaluation. Patient not seen due to Illness. Per conversation with RN she confirmed is Pt confused, intubated and sedated. Discontinued OT orders Please reconsult if/when appropriate. ? SIGNATURE: Faith Chew, OTR/L PATIENT NAME: Jorge Covington DATE: January 24, 2019 TIME: 1:[address] [facility] THERAPY NT HNO ID: [id number] Author: Annie De La RosaPtDemi Hare Service: Physical Therapy Author Type: Physical Therapist Type: Therapy (PT/OT/Speech/Resp) Filed: 01/24/2019 11:48 AM Note Text: PHYSICAL THERAPY MISSED VISIT SERVICE DATE: 01/24/2019 SERVICE TIME: 1023 to 1023 ROOM: [place] [address] Attempted Evaluation. Patient not seen due to (per RN not appropriate, to DC PT orders). Pt confused, intubated and sedated. Discontinued PT orders (without evaluation) as per VIKTOR Aparicio's suggestions. Please reconsult if/when appropriate. SIGNATURE: Annie Hare PT PATIENT NAME: Jorge Covington DATE: January 24, 2019 TIME: 10:[address] [facility] XR CHEST 1V FRONTALon 2018 XR [...] and/or infectious infiltrate. No significant pleural effusion. Medical Science Liaison: PSCB Transcribe Date/Time: Jan 24 2019 11:32A Dictated by : CRISTEL MACKENZIE MD This examination was interpreted and the report reviewed and electronically signed by: CRISTEL MACKENZIE MD on Jan 24 2019 11:34AM EST [id number] HNO ID: [id number] Author: DAVID Webb (Ct) Service: ? Author Type: Clinical Manufacturing Worker Type: [facility] Filed: 01/23/2019 12:32 PM Note Text: [...] DAVID Webb January 23, 2019 12:32 PM [facility] HNO ID: [id number] Author: DAVID Sykes (Ct) Service: ? Author Type: Clinical Manufacturing Worker Type: [facility] Filed: 01/22/2019 11:53 PM Note Text: [...] DAVID Sykes January 22, 2019 11:[address] [facility] Basic Metabolic Panlon 01-23 Anion gap [Moles/Vol] 12 mmol/L Normal 9-18 [facility] Comment on above: Performed By: #### B MP ####[facility] [address] [place] [address] Calcium [Mass/Vol] 8.7 mg/dL Normal 8.5-10.2 [facility] Comment on above: Performed By: #### B MP ####[facility] [address] [place] [address] Chloride [Moles/Vol] 105 mmol/L Normal 97-105 [facility] Comment on above: Performed By: #### B MP ####[facility] [address] [place] [address] CO2 [Moles/Vol] 23 mmol/L Normal 22-30 [facility] Comment on above: Performed By: #### B MP ####[facility] [address] [place] [address] Creatinine [Mass/Vol] 0.71 mg/dL Low 0.73-1.22 [facility] Comment on above: Performed By: #### B MP ####[facility] [address] [place], [place] [phone] eGFR- Amer. >60 Normal [facility] Comment on above: Performed By: #### B MP ####[facility] [address] [place] [phone] GFR/1.73 sq M predicted among non-blacks MDRD (S/P/Bld) [Vol rate/Area] mL/min/{1.73_m2} Normal [facility] Comment on above: Result Comment: eGFR (Estimated [...] actual GFR. Performed By: #### B MP ####[facility] [address] [place] [phone] Glucose [Mass/Vol] 188 mg/dL High 74-99 [facility] Comment on above: Result Comment: The [place] [employer] (ADA) provides guidance for cutoff [...] Standards of Medical Care in Diabetes 2016, [place] [employer]. Diabetes Care. 2016.39(Suppl 1). Performed By: #### B MP ####[facility] [address] [place] [address] Potassium [Moles/Vol] 4.3 mmol/L Normal 3.7-5.1 [facility] Comment on above: Performed By: #### B MP ####[facility] [address] [place] [address] Sodium [Moles/Vol] 140 mmol/L Normal 136-144 [facility] Comment on above: Performed By: #### B MP ####[facility] [address] [place] [address] Urea nitrogen [Mass/Vol] 8 mg/dL Low 9-24 [facility] Comment on above: Performed By: #### B MP ####[facility] [address] [place] [address] Anion gap [Moles/Vol] 9 mmol/L Normal 9-18 [facility] Comment on above: Performed By: #### C BC, BMP, MG1, PHOS ####[facility] [address] [place] [address] Calcium [Mass/Vol] 8.8 mg/dL Normal 8.5-10.2 [facility] Comment on above: Performed By: #### C BC, BMP, MG1, PHOS ####[facility] [address] [place] [address] Chloride [Moles/Vol] 102 mmol/L Normal 97-105 [facility] Comment on above: Performed By: #### C BC, BMP, MG1, PHOS ####[facility] [phone] CO2 [Moles/Vol] 22 mmol/L Normal 22-30 [facility] Comment on above: Performed By: #### C MILES HALL, MG1, PHOS ####[facility] [phone] Creatinine [Mass/Vol] 0.39 mg/dL Low 0.73-1.22 [facility] Comment on above: Performed By: #### C MILES HALL, MG1, PHOS ####[facility] [phone] eGFR- Amer. >60 Normal [facility] Comment on above: Performed By: #### C MILES HALL, MG1, PHOS ####[facility] [address] GFR/1.73 sq M predicted among non-blacks MDRD (S/P/Bld) [Vol rate/Area] mL/min/{1.73_m2} Normal [facility] Comment on above: Result Comment: eGFR (Estimated [...] reflect actual GFR. Performed By: #### C MILES HALL, MG1, PHOS ####[facility] [phone] Glucose [Mass/Vol] 165 mg/dL High 74-99 [facility] Comment on above: Result Comment: The [place] [employer] (ADA) provides guidance for cutoff [...] Standards of Medical Care in Diabetes 2016, [place] [employer]. Diabetes Care. 2016.39(Suppl 1). Performed By: #### C BC, BMP, MG1, PHOS ####[facility] [address] [place] [address] Potassium [Moles/Vol] Unable to assay. Specimen hemolyzed. Normal 3.7-5.1 [facility] Comment on above: Result Comment: CALL ED TO ICU JUAN F CUADRA Performed By: #### C BC BMP, MG1, PHOS ####[facility] [address] [place] [address] Sodium [Moles/Vol] 133 mmol/L Low 136-144 [facility] Comment on above: Performed By: #### C BC BMP, MG1, PHOS ####[facility] [address] [place] [address] Urea nitrogen [Mass/Vol] 9 mg/dL Normal 9-24 [facility] Comment on above: Performed By: #### C BC BMP, MG1, PHOS ####[facility] [address] [place] [address] CBCon 01-23-2019 Erythrocyte distribution width (RBC) [Ratio] 19.0 % High 11.5-15.0 [facility] Comment on above: Performed By: #### C BC, BMP, MG1, PHOS ####[facility] [address] [place] [address] Hematocrit (Bld) [Volume fraction] 41.0 % Normal 39.0-51.0 [facility] Comment on above: Performed By: #### C BC BMP, MG1, PHOS ####[facility] [address] [place] [address] Hemoglobin (Bld) [Mass/Vol] 12.9 g/dL Low 13.0-17.0 [facility] Comment on above: Performed By: #### C BC, BMP, MG1, PHOS ####[facility] [address] [place] [phone] MCH (RBC) [Entitic mass] 29.8 pG Normal 26.0-34.0 [facility] Comment on above: Performed By: #### C BC, BMP, MG1, PHOS ####[facility] [phone] MCHC (RBC) [Mass/Vol] 31.5 g/dL Normal 30.5-36.0 [facility] Comment on above: Performed By: #### C BC, BMP, MG1, PHOS ####[facility] [address] [place] [phone] MCV (RBC) [Entitic vol] 94.7 fL Normal 80.0-100.0 M [facility] Comment on above: Performed By: #### C BC, BMP, MG1, PHOS ####[facility] [address] [place] [address] Platelet mean volume (Bld) [Entitic vol] 10.1 fL Normal 9.0-12.7 [facility] Comment on above: Performed By: #### C BC, BMP, MG1, PHOS ####[facility] [address] [place], [place] [phone] Platelets (Bld) [#/Vol] 388 10*3/uL Normal 150-400 [facility] Comment on above: Performed By: #### C BC, BMP, MG1, PHOS ####[facility] [address] [place], [place] [phone] RBC (Bld) [#/Vol] 4.33 10*6/uL Normal 4.20-6.00 [facility] Comment on above: Performed By: #### C BC, BMP, MG1, PHOS ####[facility] [address] [place], [place] [phone] WBC (Bld) [#/Vol] 6.32 10*3/uL Normal 3.70-11.00 [facility] Comment on above: Performed By: #### C BC, BMP, MG1, PHOS ####[facility] [address] [place] [phone] CONSULTon 01-23-2019 CONSULT HNO ID: [id number] Author: Rossi Vásquez) Marleny Service: Endocrinology Author [...] -- IV lt4 is being ordered from [facility] and should arrive by 1 pm -- [...] assisted care facility after his discharge from [facility] for admission of intradural cyst vs spinal [...] (LEVOPHED) 0.5-50 mcg/min INTRAVENOUS CONTINUOUS Gayatri E (Program Arranger) Sly - DOPamine iv infusion 800 mg/250 mL D5W 2.5-20 mcg/kg/min INTRAVENOUS CONTINUOUS Gayatri E (Program Arranger) Sly Stopped at 01/23/19 0324 - levothyroxine [...] Units SUBCUTANEOUS q 12 H Gayatri E (Program Arranger) Sly 5,000 Units at 01/23/19 0850 - cefTRIAXone 1 g in D5W 100 mL MB+ (ROCEPHIN) 1 g INTRAVENOUS q 24 H Gayatri E (Program Arranger) Sly 200 mL/hr at 01/23/19 0848 1 g at 01/23/19 0848 - propofol infusion (DIPRIVAN) 5-60 mcg/kg/min INTRAVENOUS CONTINUOUS Gayatri E (Program Arranger) Sly - fentaNYL 20 mcg/mL iv infusion in NaCl 0.9% 100 mL 25-250 mcg/hr INTRAVENOUS CONTINUOUS Gayatri E (Program Arranger) Sly 10 mL/hr at 01/23/19 0947 200 [...] readings reviewed. Rossi Farmer MD [facility] Endocrinology and Metabolism [place] [facility] January 23, 2019 11:20 AM Normal [facility] CONSULT HNO ID: [id number] Author: Christina Vásquez) Kori Service: Pulmonary Disease [...] is in agreement with current management plan. [facility] STAFF PHYSICIAN NOTE OF PERSONAL INVOLVEMENT [...] per chart review. On arrival to the [place] ED, his O2 saturation on room air was 88%. He was also found to be hypotensive with a BP of 90/51. ABG on arrival demonstrated 7.28/63.4/82.7 on 2 L of oxygen. In the ED, he was placed on BiPAP 10/ at 50% FiO2 which was then increased [...] (!) 43 16 96 % ? ? 01/22/190 87/56 ? ? (!) 46 14 98 [...] 36.8 ?C (98.2 ?F) Temporal ? 01/22/19 193 102/62 ? ? (!) 50 17 97 [...] Function, Amylase, AND Lipase Recent Labs 01/23/19 0501/23/1910901/22/19224901/22/19 1227 TPROT -- -- -- -- 7.8 ALB -- -- -- -- 4.1 ALT -- -- -- -- 23 AST -- -- -- -- 53* ALKPHOS -- -- -- -- 80 TBILI -- -- -- -- 0.2 LACT 1.1 0.9 0.4* < > -- < > = values in this interval not displayed. Cardiac Enzymes ABGs Recent Labs 01/23/1953401/23/1910901/22/192249 PH 7.374 7.294* 7.226* PCO2 43.0 51.8* 67.5* PO2 98.8* 81.7* 115* BE -0.3 -2.2 -1.7 HCO3 24.5 24.3 27.0* O2HB 95.1 92.6* 94.5* COHB 1.3 1.6 1.7 MHGB 1.2 1.2 1.2 Christina Sheikh MD Staff, Respiratory [place] [facility] Pager #[phone] Normal [facility] Cortisolon 01-23-2019 Cortisol 26.3 ug/dL Normal [facility] Comment on above: Result Comment: Carlo isol Reference Range: AM = 5.3-22.5, PM = 3.4-16.8 Performed By: #### N TBNP #### [facility] [address] [facility] [phone] Free T3on 01-23-2019 Free T3 [Mass/Vol] pg/mL Low 2.3-4.1 [facility] Comment on above: Performed By: #### F REET3 ####[facility] [place], [place] [phone] Free T4on 01-23-2019 Free T4 [Mass/Vol] ng/dL Low 0.9-1.7 [facility] Comment on above: Performed By: #### F T4 ####[address] [phone] HISTORY PHYSICALon 9 HISTORY PHYSICAL HNO ID: [id number] Author: Shirley Romo Service: ? Author Type: Physician Type: HANDP Filed: 01/23/2019 8:27 AM Note Text: INTERNAL MEDICINE HANDP EXAMINATION SERVICE DATE: 01/23/2019 SERVICE TIME: 8:20 AM PRIMARY CARE PHYSICIAN: Brian Zimmerman MD Subjective CHIEF COMPLAINT: Altered mental status [...] (!) 54 16 96 % ? ? 01/22/190 92/58 ? ? (!) 45 16 94 [...] (!) 50 16 98 % ? ? 01/22/19 2000 107/73 ? ? (!) 51 17 97 [...] 01/22/192228 -- 01/22/19 223 pneumatic compression stockings (me,oh) 01/22/191814 vte non-pharmacologic prophylaxis - none indicated (me,oh) 01/22/191814 activity - mobilize patient (me,[place]) VTE Prophylaxis: VTE prophylaxis appropriate SIGNATURE: Shirley Romo DO PATIENT NAME: Jorge Covington DATE: January 23, 2019 TIME: 8:20 AM PAGER/CONTACT #: [phone] Normal [facility] Legionella Urine Agon 2018 Legionella Urine Ag Negative Normal Negative [facility] Comment on above: Performed By: #### L EGUAG ####[facility] [address] [place] [phone] Magnesiumon 01-23-2019 Magnesium [Mass/Vol] 1.8 mg/dL Normal 1.7-2.3 [facility] Comment on above: Performed By: #### C BC, BMP, MG1, PHOS ####[facility] [address] [place] [phone] NURSING PROGon 01-23-2019 NURSING PROG HNO ID: [id number] Author: Alessandra De La RosaRnDemi Norton RN Service: Nursing Author Type: Registered Nurse Type: Nursing Progress Note Filed: 01/23/2019 12:56 PM Note Text: Nursing Progress: Topic: RESTRAINT NON-VIOLENT PATIENT NAME: Jorge Covington PATIENT LOCATION: [facility] The patient demonstrates Attempting to Remove Medical [...] TIME: 12:55 PM Alessandra Norton RN Normal [facility] NURSING PROG HNO ID: [id number] Author: Britta De La RosaRnDemi Dorado RN Service: Nursing Author Type: Registered Nurse Type: Nursing Progress Note Filed: 01/23/2019 12:27 AM Note Text: Nursing Progress: Topic: RESTRAINT NON-VIOLENT PATIENT NAME: Jorge Covington PATIENT LOCATION: [facility] The patient demonstrates as evidenced by the [...] PATIENT NAME: Jorge Covington PATIENT LOCATION: [facility]-0001 -1 The patient demonstrates as evidenced by [...] 2019 TIME: 12:27 AM Britta Dorado RN [facility] NURSING PROG HNO ID: [id number] Author: Rosalinda De La RosaRn) VIKTOR Narayan Service: ? Author Type: Registered Nurse Type: Nursing Progress Note Filed: 01/22/2019 11:44 PM Note Text: Pt being prepared for intubation. RT, RNs, TEST DRIVER Braxton Armas at bedside. Time out performed. PT assessed. 100% fio2 administered via bag valve mask [id number] assisting via remote access camera and verifying [...] 2336-pt remains hypotensive neosynephrine 200mcg IV given [id number] contacted again for orders 2343-CXR done. BP improving 90's/50's [facility] PROGRESSon 01-23-2019 PROGRESS HNO ID: [id number] Author: Dalton Chambers Service: Critical Care Author [...] infusion fentaNYL Last Rate: 200 mcg/hr (01/23/19 7533) RESPIRATORY Mechanical Ventilation: Yes, on mechanical ventilation [...] Is Patient Clinically Ready to Transfer to [facility] or SDU?: No Discharge Planning: To be determined ASSESSMENT AND PLAN Neurology Myxedema coma (HCC) Assessment: H/O Hypothyroidism On Po Levothyroxine stopped taking as ran out of prescriptons PLAN: Endocrinology on board IV Levothyroxine Pulmonary Acute respiratory failure (HCC) Assessment: Intubated overnight PLAN: Lung protective ventilation, Wean as tolerated Infectious Disease Septicemia ([facility]) Assessment: Growing GNB in blood on Ceftriaxone, [...] 2229 -- 01/22/19 2230 pneumatic compression stockings (fl,oh) 01/22/19 181 vte non-pharmacologic prophylaxis - none indicated (fl,oh) 01/22/19 181 activity - mobilize patient (me,ut) VTE Prophylaxis: VTE prophylaxis appropriate Plan of care discussed with: Family/Significant Other: and RN SIGNATURE: Dalton Chambers MD PATIENT NAME: Jorge Covington DATE: January 23, 2019 TIME: 12:02 PM PAGER/CONTACT #: [phone] ICU STAFF Note of Personal Involvement in [...] which will be documented and billed separately. [facility] PROGRESS HNO ID: [id number] Author: Horace Jose Rai Service: Critical Care [...] Levothyroxine and follow. Horace Jose Rai, MD, [facility] E-ICU Staff, Pulmonary and Critical Care Medicine [facility] Respiratory [place] Pager #[phone] [facility] PROGRESS HNO ID: [id number] Author: Gayatri Heart Service: eHospital Author Type: [...] sedated Assessment: hypotensive, poor UO SIGNATURE: Gayatri Heart, EVELYNE.LUPE PATIENT NAME: Jorge Covington DATE: January 23 2019 TIME: 12:[address] [facility] PROGRESS HNO ID: [id number] Author: Gayatri Heart Service: eHospital Author Type: [...] Collaboration: Plan of care discussed with ospital Sleeve Separator SIGNATURE: Gayatri Heart APRN.CNP PATIENT NAME: Jorge Covington DATE: January 23 2019 TIME: 12:[address] [facility] PROGRESS HNO ID: [id number] Author: Gayatri Heart Service: eHospital Author Type: [...] Collaboration: Plan of care discussed with ospital Sleeve Separator SIGNATURE: Gayatri Heart APRN.CNP PATIENT NAME: Jorge Covington DATE: January 22 2019 TIME: 11:[address] [facility] Phosphoruson 01-23-2019 Phosphate [Mass/Vol] 3.1 mg/dL Normal 2.7-4.8 [facility] Comment on above: Performed By: #### C BC, BMP, MG1, PHOS ####[facility] [address] [place] [address] Staph aureus PCRon 9 MRSA PCR Negative [facility] Comment on above: Performed By: #### C BCDIF, CMP #### [facility] [address] [address] S aureus Spec Source Nasal [facility] Comment on above: Performed By: #### C BCDIF, CMP #### [facility] [address] [place] [address] Staph aureus PCR Negative [facility] Comment on above: Performed By: #### C BCDIF, CMP #### [facility] [address] [place] [address] MRSA PCR Negative [facility] Comment on above: Performed By: #### S APCR ####[facility] [address] [place] [phone] S aureus Spec Source Nasal [facility] Comment on above: Performed By: #### S APCR ####[facility] [address] [place] [address] [address] [place] [phone] Staph aureus PCR Negative [facility] Comment on above: Performed By: #### S APCR ####[facility] [address] [place] [address] [address] [place], [place] [phone] THERAPY NTon 10-27-2019 THERAPY NT HNO ID: [id number] Author: Shyanne De La RosaPtDemi Elder Service: Physical Therapy Author Type: Physical Therapist Type: Therapy (PT/OT/Speech/Resp) Filed: 01/23/2019 10:06 AM Note Text: PHYSICAL THERAPY MISSED VISIT SERVICE DATE: 01/23/2019 SERVICE TIME: 1003 to 1004 ROOM: [place] [address] Attempted Evaluation. Patient not seen due to Illness(Per nsg pt not appropriate for PT Eval at this time. Sedated. Intubated). SIGNATURE: Shyanne Elder PT PATIENT NAME: Jorge Covington DATE: January 23, 2019 TIME: 10:[address] [facility] THERAPY NT HNO ID: [id number] Author: Drea De La RosaOt/LDemi Burciaga Service: Occupational Therapy Author Type: Occupational Therapist Type: Therapy (PT/OT/Speech/Resp) Filed: 01/23/2019 10:05 AM Note Text: OCCUPATIONAL THERAPY MISSED VISIT SERVICE DATE: 01/23/2019 SERVICE TIME: 1004 to 1004 ROOM: [place] [address] Attempted Evaluation. Patient not seen due to Illness. RNAlessandra, reported that pt is not appropriate for therapy at this time. Per pt chart, pt is sedated and intubated. Will re-attempt as schedule allows with pt appropriateness. SIGNATURE: Drea Burciaga OT/Eliseo PATIENT NAME: Jorge Covington DATE: January 23, 2019 TIME: 10:[address] [facility] Urine Cultureon 01-23-2019 Bacteria identified Cx Nom (U) Culture Result - 50,000 - <100,000 CFU/ml Normal urogenital cristel Normal [facility] Comment on above: Performed By: #### C BCDIF, CMP #### [facility] [address] [facility] [phone] Urine Strep Pneumo FOR WEST USE ONLYon 01-23-2019 Urine Strep Pneumo FOR WEST USE ONLY Negative Normal Negative [facility] Comment on above: Result Comment: Stre p Pneumo vaccine may cause a false positive Strep Pneumo antigen result in the 48 hours following vaccine. Performed By: #### U STPW ####[facility] [address] [phone] XR ABDOMEN 1V SUPINEon 01-23 XR ABDOMEN [...] mildly distended small bowel loops. Consider follow-up. Medical Science Liaison: ALDO Transcribe Date/Time: Jan 23 2019 12:38P Dictated by : KASI YA MD This examination was interpreted and the report reviewed and electronically signed by: KASI YA MD on Jan 23 2019 12:41PM EST [id number] [facility] XR ABDOMEN 1V SUPINE * * [...] Evaluate tube, line or lead position (accession [id number]), Evaluate tube, line or lead position (accession [id number]) MQ: XC2_5 Comparison: Same-day chest radiograph RESULT: [...] This could represent atelectasis, pneumonia, or aspiration. Medical Science Liaison: ALDO Transcribe Date/Time: Jan 22 2019 11:57P Dictated by : KARI VIVAS MD This examination was interpreted and the report reviewed and electronically signed by: KARI VIVAS MD on Jan 23 2019 12:03AM EST [id number] [facility] XR CHEST 1V FRONTAL PORTon 1 [...] Evaluate tube, line or lead position (accession [id number]), Evaluate tube, line or lead position (accession [id number]) MQ: XC2_5 Comparison: Same-day chest radiograph RESULT: [...] This could represent atelectasis, pneumonia, or aspiration. Medical Science Liaison: PSCB Transcribe Date/Time: Jan 22 2019 11:57P Dictated by : KARI VIVAS MD This examination was interpreted and the report reviewed and electronically signed by: KARI VIVAS MD on Jan 23 2019 12:03AM EST [id number] [facility] ALLIED HEALTHon 01-22-2019 ALLIED HEALTH HNO ID: [id number] Author: DAVID Webb (Ct) Service: ? Author Type: Clinical Manufacturing Worker Type: Allied Health Filed: 01/22/2019 12:47 PM [...] Webb January 22, 2019 12:46 PM Normal [facility] Blood Cultureon 01-22-2019 Bacteria identified Cx Nom [...] ALERT Called to and read back by:Criss [place] [phone] Chris --> ABNORMAL ALERT Klebsiella oxytoca detected by microarray. Confirmation and --> ABNORMAL ALERT susceptibility testing to follow.(*), Negative for Acinetobacter spp. --> ABNORMAL ALERT and Pseudomonas aeruginosa by --> ABNORMAL ALERT microarray.. Called to and read back by: Corie Norton at [facility], on --> ABNORMAL ALERT 01.22.19 at 1215, [...] <=0.5 F Cefazolin SUSCEPTIBLE F Critically abnormal [facility] Comment on above: Performed By: #### T SH #### [facility] [address] [place] [address] Bacteria identified Cx Nom (Bld) Culture Result - No growth 5 days Normal [facility] Comment on above: Performed By: #### B LCUL ####[facility] [place], [place] [phone] CBC and Differentialon 01-22 Abs Baso 0.06 k/uL Normal <0.11 [facility] Comment on above: Performed By: #### C BCDIF, CMP #### [facility] [address] [address] Abs Kane 0.44 k/uL Normal <0.87 [facility] Comment on above: Performed By: #### C BCDIF, CMP #### [facility] [address] [address] Abs Neut 2.49 k/uL Normal 1.45-7.50 [facility] Comment on above: Performed By: #### C BCDIF, CMP #### [facility] [address] [place] [address] Basophils/100 WBC (Bld) 1.1 % Normal [facility] Comment on above: Performed By: #### C BCDIF, CMP #### [facility] [address] [address] Eosinophils (Bld) [#/Vol] 0.26 10*3/uL Normal <0.46 [facility] Comment on above: Performed By: #### C BCDIF, CMP #### [facility] [address] [place] [address] Eosinophils/100 WBC (Bld) 4.8 % Normal [facility] Comment on above: Performed By: #### C BCDIF, CMP #### [facility] [address] [place] [address] Erythrocyte distribution width (RBC) [Ratio] 18.9 % High 11.5-15.0 [facility] Comment on above: Performed By: #### C BCDIF, CMP #### [facility] [address] [place] [address] Hematocrit (Bld) [Volume fraction] 44.0 % Normal 39.0-51.0 [facility] Comment on above: Performed By: #### C BCDIF, CMP #### [facility] [address] [place] [address] Hemoglobin (Bld) [Mass/Vol] 13.8 g/dL Normal 13.0-17.0 [facility] Comment on above: Performed By: #### C BCDIF, CMP #### [facility] [address] [place] [address] Lymphocytes (Bld) [#/Vol] 2.17 10*3/uL Normal 1.00-4.00 [facility] Comment on above: Performed By: #### C BCTERESITAF, CMP #### [facility] [address]5160 Lymphocytes/100 WBC (Bld) 40.0 % Normal [facility] Comment on above: Performed By: #### C BCDIF, CMP #### [facility] [address] [place] [phone] MCH (RBC) [Entitic mass] 29.6 pG Normal 26.0-34.0 [facility] Comment on above: Performed By: #### C BCDIF, CMP #### [facility] [address] [place] [phone] MCHC (RBC) [Mass/Vol] 31.4 g/dL Normal 30.5-36.0 [facility] Comment on above: Performed By: #### C BCDIF, CMP #### [facility] [address]5160 MCV (RBC) [Entitic vol] 94.4 fL Normal 80.0-100.0 [facility] Comment on above: Performed By: #### C BCTERESITAF, CMP #### [facility] [address] Monocytes/100 WBC (Bld) 8.1 % Normal [facility] Comment on above: Performed By: #### C BCDARI, CMP #### [facility] [address] Neutrophils/100 WBC (Bld) 46.0 % Normal [facility] Comment on above: Performed By: #### C BCTERESITAF, CMP #### [facility] [address]5160 Platelet mean volume (Bld) [Entitic vol] 9.6 fL Normal 9.0-12.7 [facility] Comment on above: Performed By: #### C BCTERESITAF, CMP #### [facility] [address] Platelets (Bld) [#/Vol] 389 10*3/uL Normal 150-400 [facility] Comment on above: Performed By: #### C BCTERESITAF, CMP #### [facility] [address]5160 RBC (Bld) [#/Vol] 4.66 10*6/uL Normal 4.20-6.00 [facility] Comment on above: Performed By: #### C BCDARI CMP #### [facility] [address] [place] [address] WBC (Bld) [#/Vol] 5.42 10*3/uL Normal 3.70-11.00 [facility] Comment on above: Performed By: #### C BCTERESITAF, CMP #### [facility] [address] [place] [address] Comp Metabolic Panelon 01-22 Albumin [Mass/Vol] 4.1 g/dL Normal 3.9-4.9 [facility] Comment on above: Performed By: #### C BCDARI CMP #### [facility] [address] [place] [address] ALP [Catalytic activity/Vol] 80 U/L Normal 38-113 [facility] Comment on above: Performed By: #### C BCTERESITAF, CMP #### [facility] [address] [place] [address] ALT [Catalytic activity/Vol] 23 U/L Normal 10-54 [facility] Comment on above: Performed By: #### C BCDARI CMP #### [facility] [address] [place] [address] Anion gap [Moles/Vol] 8 mmol/L Low 9-18 [facility] Comment on above: Performed By: #### C BCTERESITAF, CMP #### [facility] [address] [place] [address] AST [Catalytic activity/Vol] 53 U/L High 14-40 [facility] Comment on above: Performed By: #### C BCTERESITAF, CMP #### [facility] [address] [place] [address] Bilirubin [Mass/Vol] 0.2 mg/dL Normal 0.2-1.3 [facility] Comment on above: Performed By: #### C BCDIF, CMP #### [facility] [address] [place] [address] Calcium [Mass/Vol] 9.9 mg/dL Normal 8.5-10.2 [facility] Comment on above: Performed By: #### C BCDIF, CMP #### [facility] [address] [facility] [phone] Chloride [Moles/Vol] 103 mmol/L Normal 97-105 [facility] Comment on above: Performed By: #### C BCDIF, CMP #### [facility] [address] [facility] [phone] CO2 [Moles/Vol] 29 mmol/L Normal 22-30 [facility] Comment on above: Performed By: #### C BCDIF, CMP #### [facility] [address] [place] [phone] Creatinine [Mass/Vol] 0.90 mg/dL Normal 0.73-1.22 [facility] Comment on above: Performed By: #### C BCDIF, CMP #### [facility] [address] [place] [phone] eGFR- Amer. >60 Normal [facility] Comment on above: Performed By: #### C BCDIF, CMP #### [facility] [address] [phone] GFR/1.73 sq M predicted among non-blacks MDRD (S/P/Bld) [Vol rate/Area] mL/min/{1.73_m2} Normal [facility] Comment on above: Result Comment: eGFR (Estimated [...] Performed By: #### C BCDIF, CMP #### [facility] [address] [facility] [phone] Glucose [Mass/Vol] 87 mg/dL Normal 74-99 [facility] Comment on above: Result Comment: The [place] Diabetes Association (ADA) provides guidance for cutoff [...] Standards of Medical Care in Diabetes 2016, [place] [employer]. Diabetes Care. 2016.39(Suppl 1). Performed By: #### C BCDIF, CMP #### [facility] [address] Potassium [Moles/Vol] 3.6 mmol/L Low 3.7-5.1 [facility] Comment on above: Performed By: #### C BCDIF, CMP #### [facility] [address] [place] [address] Protein [Mass/Vol] 7.8 g/dL Normal 6.3-8.0 [facility] Comment on above: Performed By: #### C BCDIF, CMP #### [facility] [address] [place], [place] [phone] Sodium [Moles/Vol] 140 mmol/L Normal 136-144 [facility] Comment on above: Performed By: #### C BCDIF, CMP #### [facility] [address] [place], [place] [phone] Urea nitrogen [Mass/Vol] 10 mg/dL Normal 9-24 [facility] Comment on above: Performed By: #### C BCDIF, CMP #### [facility] [address] [place], [place] [phone] ECG COMPLETEon 01-22-2019 ECG COMPLETE NAME : JORGE COVINGTON PID : [id number] : 1955 Gender : Male Race : ORD : [id number] Procedure Date : Jan 22 2019 12:21:31 Edit Date : Jan 22 2019 16:35:25 Diagnosis:SINUS BRADYCARDIA LOW VOLTAGE QRS NONSPECIFIC T WAVE ABNORMALITY ABNORMAL ECG 1422 no STEMI Confirmed by DO KINGSTON MICHELLE ([id number]), business editor CITLALY WOO ([id number]) on 01/22/2019 4:35:24 PM Systolic BP : 90 mmHg Diastolic BP : 51 mmHg Ventricular Rate : 57 BPM Atrial Rate : 57 BPM P-R Interval : 194 ms QRS Duration : 88 ms Q-T Interval : 384 ms QTC Calculation(Bazett) : 373 ms P Dewart : 76 degrees R Dewart : 53 degrees T Dewart : 208 degrees Test Reason : Chest Pain Location : 1 : ER 04 Overread By : DO KINGSTON MICHELLE Edited By : CITLALY WOO Referred By : System,System Acquired by : System,System [facility] ED NOTEon 01-22-2019 ED NOTE HNO ID: [id number] Author: Annabel Couch RN Service: ? Author Type: Registered Nurse Type: ED Notes Filed: 01/22/2019 5:02 PM Note Text: Report called to Marjorie Rn. Patient in stable condition upon transfer to ICU [facility] ED NOTE HNO ID: [id number] Author: Annabel Couch RN Service: ? Author Type: Registered Nurse Type: ED Notes Filed: 01/22/2019 4:22 PM Note Text: Tavern Car Attendant called icu will be able to take report shortly on patient. Asked to hold patient in ED [facility] ED NOTE HNO ID: [id number] Author: Annabel Couch RN Service: ? Author Type: Registered Nurse Type: ED Notes Filed: 01/22/2019 12:22 PM Note Text: Bed: ED-04 Expected date: Expected time: Means of arrival: Comments: [facility] ED NOTE HNO ID: [id number] Author: Annabel Couch RN Service: ? Author Type: Registered Nurse Type: ED Notes Filed: 01/22/2019 12:13 PM Note Text: Patient presents to ED with mental status change [facility] ED PROV NOTEon 01-22-2019 ED PROV NOTE HNO ID: [id number] Author: Yue Kingston DO Service: Emergency Medicine [...] Per EMS, the patient had a negative [place] stroke scale. PAST MEDICAL HISTORY Diagnosis Date [...] slurred speech. He knows he is at [facility]. He can tell me his birthday. [birth year]: [...] to ICU. I also spoke with the cable testers helper who is aware of the patient's admission. The attending who evaluated and managed this patient was Yue Kingston . HANDP obtained from pt's . Case was discussed with Dr. Trish Ozuna. 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 The patient received IV fluids, oxygen and consultation with (BIPAP) ICU during the time that critical care was provided. Critical care time excludes separately billed procedures. Critical care time documentation entered by Yue Kingston DO. SIGNATURE: DO Yue Montanez DO 01/22/[address] [facility] HOSPon 01-22-2019 HOSP Patient:Cruz Covington MRN: [...] [M54.5, G89.29] COPD (chronic obstructive pulmonary disease) ([facility]) [J44.9] Hypothyroidism [E03.9] GERD (gastroesophageal reflux disease) [K21.9] Overactive bladder [N32.81] Septicemia due to Klebsiella pneumoniae ([facility]) [A41.4] Allergies: Dust Mold Spores Date Verified: [...] Per EMS, the patient had a negative [place] stroke scale. PAST MEDICAL HISTORY Diagnosis Date [...] slurred speech. He knows he is at [facility]. He can tell me his birthday. 1254: [...] to ICU. I also spoke with the cable testers helper who is aware of the patient's admission. The attending who evaluated and managed this patient was Yue Kingston . HANDP obtained from pt's . Case was discussed with Dr. Trish Ozuna. Additional Tests or Interventions: ECG EKG INTERPRETATION: Ordered and Reviewed Rhythm: Sinus bradycardia Rate: 57 Dewart: Normal axis Intervals: Normal MT interval QRS Complex: Normal ST Segment: Normal [...] of the following condition(s): respiratory impairment and [employer] impairment, which the patient had and/or has [...] Couch RN, RN 01/22/2019 4:22 PM Signed Tavern Car Attendant called icu will be able to take report shortly on patient. Asked to hold patient in ED Annabel Couch RN, RN 01/22/2019 5:02 PM Signed Report called to Marjorie Rn. Patient in stable condition upon transfer to ICU ANN COLE 01/22/2019 6:35 PM Signed MEDICATION HISTORY Patient Name:Solis Covington : 1955 Source of history:Family: Reliability of source: Appears reliable, clearly identified: Medication name, Medication dose, Medication route, Medication frequency and Timing of last dose, Pharmacy records: [facility] Pharmacy and Prescription bottles Medication Nonadherence [...] Itching, Other: See Comments Sneezing Preferred Pharmacy: [facility] Pharmacy Current [employer] Medications: Prior to Admission medications as of 01/22/19 7773 Medication Sig Last Dose Taking acetaminophen (ARTHRITIS [...] Note Patient Name: Jorge Covington Patient Location: [facility] Daily Note to ICU 1 c monitor and bipap per cart from ER This note was completed by: Marjorie Zavaleta, VIKTOR Heart APRN.CNP 01/22/2019 11:38 PM Signed eHospital [...] Collaboration: Plan of care discussed with ospital Sleeve Separator SIGNATURE: Gayatri Heart APRN.CNP PATIENT NAME: Jorge Covington DATE: January 22 2019 TIME: 11:26 PM Rosalinda Narayan, RN, RN 01/22/2019 11:44 PM Signed Pt being prepared for intubation. RT, RNs, NOELLE Armas at bedside. Time out performed. PT assessed. 100% fio2 administered via bag valve mask [id number] assisting via remote access camera and verifying [...] 2336-pt remains hypotensive neosynephrine 200mcg IV given [id number] contacted again for orders 2343-CXR done. BP improving 90's/50's Dank Armas APRN.CRNA 01/22/2019 11:43 PM Signed INTUBATION PROCEDURE NOTE PROCEDURE DATE: January 22, 2019 PROCEDURE START TIME: 2329 PROCEDURE: OROTRACHEAL INTUBATION PRIMARY PROCEDURALIST: Dank Armas APRN.CRNA AVIATION PROJECT ENGINEER(S): None INFORMED CONSENT: Due to emergent situation [...] NON-VIOLENT PATIENT NAME: Jorge Covington PATIENT LOCATION: [place] [address]/[facility] -[facility] The patient demonstrates as [...] Progress: Topic: RESTRAINT NON-VIOLENT PATIENT NAME: Jorge Covintgon PATIENT LOCATION: [facility] The patient demonstrates as evidenced by [...] Collaboration: Plan of care discussed with ospital Sleeve Separator SIGNATURE: Gayatri Heart APRN.CNP PATIENT NAME: Jorge [...] Levothyroxine and follow. Horace Jose Rai, MD, [facility] E-ICU Staff, Pulmonary and Critical Care Medicine [facility] Respiratory [place] Pager #[phone] Shirley Walter Romo DO 01/23/2019 8:27 AM Signed INTERNAL MEDICINE HANDP EXAMINATION SERVICE DATE: 01/23/2019 SERVICE TIME: 8:20 AM PRIMARY CARE PHYSICIAN: Brian Zimmerman MD Subjective CHIEF COMPLAINT: Altered mental status [...] (!) 43 16 96 % ? ? 01/22/190 87/56 ? ? (!) 46 14 98 [...] HOURS 01/22/192228 -- 01/22/192229 pneumatic compression stockings (me,ut) 01/22/191814 vte non-pharmacologic prophylaxis - none indicated (me,oh) 01/22/191814 activity - mobilize patient (me,ut) VTE Prophylaxis: VTE prophylaxis appropriate SIGNATURE: Shirley Romo DO PATIENT NAME: Jorge Covington DATE: January 23, 2019 TIME: 8:20 AM PAGER/CONTACT #: [phone] Drea Burciaga OT/Eliseo 01/23/2019 10:05 AM Signed OCCUPATIONAL THERAPY MISSED VISIT SERVICE DATE: 01/23/2019 SERVICE TIME: 1004 to 1004 ROOM: [place] [address] Attempted Evaluation. Patient not seen due to [...] 01/23/2019 SERVICE TIME: 1003 to 1004 ROOM: [place] [address] Attempted Evaluation. Patient not seen due to [...] #4 2. Severe hypothyroidism (possible myxedema coma) / #1 3. Bradycardia 2/2 #2 AND #1 [...] is in agreement with current management plan. [facility] STAFF PHYSICIAN NOTE OF PERSONAL INVOLVEMENT [...] per chart review. On arrival to the [place] ED, his O2 saturation on room air [...] (!) 54 16 96 % ? ? 01/22/190 92/58 ? ? (!) 45 16 94 [...] 61 16 (!) 86 % ? ? 01/22/190 ? ? ? (!) 54 17 92 [...] 1.2 1.2 Christina Sheikh MD Staff, Respiratory [place] [facility] Pager #[phone] Previous Version Rossi Farmer MD 01/23/2019 12:24 [...] -- IV lt4 is being ordered from [facility] and should arrive by 1 [...] assisted care facility after his discharge from [facility] for admission of intradural cyst [...] (LEVOPHED) 0.5-50 mcg/min INTRAVENOUS CONTINUOUS Gayatri E (Program Arranger) Sly - DOPamine iv infusion 800 mg/250 mL D5W 2.5-20 mcg/kg/min INTRAVENOUS CONTINUOUS Gayatri E (Program Arranger) Sly Stopped at 01/23/19 0324 - levothyroxine [...] Units SUBCUTANEOUS q 12 H Gayatri E (Program Arranger) Sly 5,000 Units at 01/23/19 0850 - cefTRIAXone 1 g in D5W 100 mL MB+ (ROCEPHIN) 1 g INTRAVENOUS q 24 H Gayatri E (Program Arranger) Sly 200 mL/hr at 01/23/19 0848 1 g at 01/23/19 0848 - propofol infusion (DIPRIVAN) 5-60 mcg/kg/min INTRAVENOUS CONTINUOUS Gayatri E (Program Arranger) Sly - fentaNYL 20 mcg/mL iv infusion in NaCl 0.9% 100 mL 25-250 mcg/hr INTRAVENOUS CONTINUOUS Gayatri E (Program Arranger) Sly 10 mL/hr at 01/23/19 0947 200 [...] readings reviewed. Rossi Farmer MD [facility] Endocrinology and Metabolism [place] [facility] January 23, 2019 11:20 AM Previous Version [...] infusion fentaNYL Last Rate: 200 mcg/hr (01/23/19 0329) RESPIRATORY Mechanical Ventilation: Yes, on mechanical ventilation [...] Is Patient Clinically Ready to Transfer to [facility] or SDU?: No Discharge Planning: To be [...] infusion fentaNYL Last Rate: 200 mcg/hr (01/23/19 3469) RESPIRATORY Mechanical Ventilation: Yes, on mechanical ventilation [...] Is Patient Clinically Ready to Transfer to [facility] or SDU?: No Discharge Planning: To be determined ASSESSMENT AND PLAN Neurology Myxedema coma (HCC) Assessment: H/O Hypothyroidism On Po Levothyroxine stopped taking as ran out of prescriptons PLAN: Endocrinology on board IV Levothyroxine Pulmonary Acute respiratory failure (HCC) Assessment: Intubated overnight PLAN: Lung protective ventilation, Wean as tolerated Infectious Disease Septicemia (HCC) Assessment: Growing GNB in blood on Ceftriaxone, [...] 2229 -- 01/22/19 2230 pneumatic compression stockings (me,ut) 01/22/19 1815 vte non-pharmacologic prophylaxis - none indicated (me,ut) 01/22/19 181 activity - mobilize patient ([place], [place]) VTE Prophylaxis: VTE prophylaxis appropriate Plan of care discussed with: Family/Significant Other: and RN SIGNATURE: Dalton Chambers MD PATIENT NAME: Jorge Covington DATE: January 23, 2019 TIME: 12:02 PM PAGER/CONTACT #: [phone] ICU STAFF Note of Personal Involvement in [...] PATIENT NAME: Jorge Covington PATIENT LOCATION: [facility] -1 The patient demonstrates Attempting to Remove [...] HOURS 01/22/192228 -- 01/22/192229 pneumatic compression stockings (me,oh) 01/22/191814 vte non-pharmacologic prophylaxis - none indicated (me,oh) 01/22/191814 activity - mobilize patient (me,ut) VTE Prophylaxis: VTE prophylaxis appropriate SIGNATURE: Shirley Romo DO PATIENT NAME: Jorge Covington DATE: January 24, 2019 TIME: 9:38 AM PAGER/CONTACT #: [phone] Annie Hare PT 01/24/2019 11:48 AM Addendum PHYSICAL THERAPY MISSED VISIT SERVICE DATE: 01/24/2019 SERVICE TIME: 1023 to 1023 ROOM: [place] [address] Attempted Evaluation. Patient not seen due to [...] Units SUBCUTANEOUS q 12 H Gayatri E (Program Arranger) Sly 5,000 Units at 01/24/19 0957 - cefTRIAXone 1 g in D5W 100 mL MB+ (ROCEPHIN) 1 g INTRAVENOUS q 24 H Gayatri E (Program Arranger) Sly 200 mL/hr at 01/24/19 0955 1 g at 01/24/19954 - propofol infusion (DIPRIVAN) 5-60 mcg/kg/min INTRAVENOUS CONTINUOUS Gayatri E (Program Arranger) Sly CURRENT ALLERGIES: Allergies As of Date: [...] Justin Davila MD 01/24/2019 11:19 AM Signed RESPIRATORY [facility] IN-PATIENT CONSULT PROGRESS NOTE SERVICE [...] pathology data. Justin Davila MD Staff, Respiratory [place] [facility] Pager #[phone] SUBJECTIVE CHIEF COMPLAINT: Respiratory failure INTERVAL HPI:Jorge [...] 24, 2019 TIME: 11:06 AM PAGER/CONTACT #: [phone] RT Bonnie, [employer]elligent 01/24/2019 11:14 AM Signed Radiology Service Progress [...] the A/P section below. Please refer to [facility] for list of inpatient medications. [...] Is Patient Clinically Ready to Transfer to [facility] or SDU?: No Discharge Planning: To be determined Camila Rizvi MD, 01/24/2019 11:37 AM Written Assessment: H/O Hypothyroidism On Po Levothyroxine stopped taking as ran out of prescriptons PLAN: Endocrinology on board IV Levothyroxine Daily thyroid studies Camila Rizvi MD, 01/24/2019 11:38 AM Written Assessment: Growing klebsiella [...] the A/P section below. Please refer to [facility] for list of inpatient medications. 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 Current Assessment AND Plan Assessment: H/O Hypothyroidism On Po Levothyroxine stopped taking as ran out of prescriptons PLAN: Endocrinology on board IV Levothyroxine Daily thyroid studies Pulmonary COPD (chronic obstructive pulmonary disease) ([facility]) 06/08/2018 - Present Acute respiratory failure ([facility]) 01/22/2019 - Present Current Assessment AND Plan Assessment: Intubated 01/22 overnight PLAN: Lung protective ventilation Wean as tolerated Infectious Disease Septicemia ([facility]) 01/23/2019 - Present Current Assessment AND Plan [...] indicated (fl,oh) 01/22/191814 activity - mobilize patient (me,oh) VTE Prophylaxis: VTE prophylaxis appropriate Plan of care discussed with: Provider, RN, Patient SIGNATURE: Camila Rizvi MD PATIENT NAME: Jorge Covington DATE: January 24, 2019 TIME: 11:40 AM PAGER/CONTACT #: [phone] ICU STAFF PHYSICIAN NOTE OF PERSONAL INVOLVEMENT [...] SERVICE TIME: 11:45 am PRIMARY CARE PHYSICIAN: Brian Zimmerman MD - confirmed with pt's spouse ADMISSION [...] Current Advance Directive: Health Care Power of Career Services Representative In Chart: Yes Up To Date and [...] Information Primary Emergency Contact: Dasia Covington Address: [address] [place] [address] OF [facility] Mobile Relation: Spouse Supportive: Yes Other Important [...] 0 I feel financially burdened by my odh-tb-xocjma expenses for my prescription medication: Disagree completely [...] decision yet. Spouse may need list of [place] facilities and OZ explained CM able to provide. Pt's spouse requested OZ call VIKTOR Ewing at [phone] to see which agency she works for [...] 24, 2019 TIME: 11:59 AM PAGER/CONTACT #: [phone], LD 01/24/2019 12:22 PM [...] kg ( (more content not included)... Normal [facility] Mycoplasma IgM ABon 01-23-20 19 M. pneumo IgM, Qual Negative Normal Negative [facility] Comment on above: Result Comment: No s ignificant amount of IgM antibodies to M. pneumoniae detected. A nonreactive result indicates no current/previous infection. Performed By: #### N TBNP #### [facility] Laboratory [address] [place] [phone] Mycoplasma IgM AB 0.45 OD Ratio Normal [facility] Comment on above: Result Comment: Inde x Values/OD Ratios are interpreted as follows: Negative: < or = 0.90 Equivocal: 0.91 to 1.09 Positive: > or = 1.10 The magnitude of the measured result above the cutoff is not indicative of the total amount of antibody present and cannot be correlated to IFA titers. Performed By: #### N TBNP #### [facility] [address] [facility] [phone] NT Pro BNPon 01-22-2019 PRO B Natr Peptide 32 pg/mL Normal <125 [facility] Comment on above: Performed By: #### N TBNP #### [facility] [address] [facility] [phone] NURSING PROGon 01-22-2019 NURSING PROG HNO ID: [id number] Author: Marjorie De La RosaRn) VIKTOR Zavaleta Service: Nursing Author Type: Registered Nurse Type: Nursing Progress Note Filed: 01/22/2019 9:15 PM Note Text: Nursing Progress Note Patient Name: Jorge Covington Patient Location: [facility] -[facility] Daily Note to ICU 1 c monitor and bipap per cart from ER This note was completed by: Marjorie Zavaleta RN [facility] PLAN OF CAREon 01-22-2019 PLAN OF CARE HNO ID: [id number] Author: Justen Guerrero (Pharmacist) Service: Pharmacy Author Type: Pharmacist Type: Plan of Care Filed: 01/22/2019 6:35 PM Note Text: MEDICATION HISTORY Patient Name:.Jorge Covington : 1955 Source of history:Family: Reliability of source: Appears reliable, clearly identified: Medication name, Medication dose, Medication route, Medication frequency and Timing of last dose, Pharmacy records: [facility] Pharmacy and Prescription bottles Medication Nonadherence [...] Itching, Other: See Comments Sneezing Preferred Pharmacy: [facility] 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 Performed By: #### U A, UAMIC ####[facility] [address] [phone] Clarity (U) Slightly Hazy Critically abnormal Clear [facility] Comment on above: Performed By: #### U A, UAMIC ####[facility] [address] [phone] Color (U) Yellow Normal Yellow [facility] Comment on above: Performed By: #### U A, UAMIC ####[facility] [address] [place] [address] Glucose Ql (U) Negative Normal Negative [facility] Comment on above: Performed By: #### U A, UAMIC ####[facility] [address] [place] [address] Hemoglobin/Blood,Ur Trace Critically abnormal Negative [facility] Comment on above: Performed By: #### U A, UAMIC ####[facility] [address] [place] [address] Ketones Ql (U) Negative Normal Negative [facility] Comment on above: Performed By: #### U A, UAMIC ####[facility] [address] [place] [address] Leukest Negative Normal Negative [facility] Comment on above: Performed By: #### U A, UAMIC ####[place] [address] Nitrite Ql (U) Negative Normal [facility] Comment on above: Performed By: #### U A, UAMIC ####[facility] [address] [place] [address] pH (Bld) 6.0 Normal 5.0-8.0 [facility] Comment on above: Performed By: #### U A, UAMIC ####[place] [address] Protein (U) [Mass/Vol] Negative Normal Negative [facility] Comment on above: Performed By: #### U A, UAMIC ####[facility] [address] [place] [address] Specific [place], Ur >1.029 High 1.001-1.029 [facility] Comment on above: Performed By: #### U A, UAMIC ####[facility] [address] [place] [address] Urobilinogen Qn (U) 0.2 Normal 0.2-1.0 [facility] Comment on above: Performed By: #### U A, UAMIC ####[facility] [address] [place] [address] Urine Microscopic (FOR LAB U SE ONLY)on 01-22-2019 Bacteria LM.HPF (Urine sed) [#/Area] Many Critically abnormal 0 [facility] Comment on above: Performed By: #### U A, UAMIC ####[facility] [address] [place] [address] Cast SEE COMMENT Normal 0 [facility] Comment on above: Result Comment: 0 Performed By: #### U A, UAMIC ####[facility] [address] [place] [address] Epithelial cells LM.HPF (Urine sed) [#/Area] SEE COMMENT Normal [facility] Comment on above: Result Comment: 0-5 Squamous Epithelial Cells Performed By: #### U A, UAMIC ####[facility] [address] [place] [address] RBC (U) [#/Vol] 3-5 Critically abnormal 0-3 [facility] Comment on above: Performed By: #### U A, UAMIC ####[facility] [address] [place] [address] WBC (Bld) [#/Vol] 0-5 Normal 0-5 [facility] Comment on above: Performed By: #### U A, UAMIC ####[facility] [address] [place] [address] XR CHEST 1V FRONTAL PORTon 1 XR [...] is recommended in 4-6 weeks, indeterminate appearance. Medical Science Liaison: PSCB Transcribe Date/Time: Jan 22 2019 12:53P Dictated by : GARRETT VIGIL MD This examination was interpreted and the report reviewed and electronically signed by: GARRETT VIGIL MD on Jan 22 2019 12:56PM EST [id number] N [facility] 06-22-2018 CNOV Office Visit (AKURFL ) CÉSARJORGE DANIELLE ([id number]) 1955 M Date Time Provider Department 06/22/18 2:00 PM PRAVIN PEDRAZA During your visit today, we recorded the following information about you: Weight Height 93.4 kg 1.676 m Pravin Pedraza DO, MBA 06/22/2018 2:57 PM Signed ?? [facility] Urological and Kidney [place] [facility] UROLOGY LOCATION: [address] [place] [address] NEW PATIENT HISTORY AND PHYSICAL EXAM PATIENT INFO: Jorge Machado César 62 year old REFERRING M.D.: Self PCP: Brian Zimmerman MD Consultation requested by Self and my final recommendations will be communicated back to the requesting physician by way of shared medical record or letter via [place] mail. Chief Complaint: urinary retention HPI Lamont is here for retention of urine Benson in place Complex hx, no records Here from halfway Failed voiding trial Needs full evaluation 1-Duration: [...] 06/13/2018 7.0 4.5 - 8.0 Final Specific [place], Ur Date Value Ref Range Status 06/13/2018 [...] Flomax Pravin Pedraza DO MBA Letter to: Brian Zimmerman MD Referring Provider: SELF [200] Allergies As of Date: 06/22/2018 Noted Allergy Reaction DUST 06/02/2018 14 - Other: See Comments Comments: sneezing MOLD SPORES 06/02/2018 9 - Itching 14 - Other: See Comments Comments: Sneezing Date Reviewed: 06/22/2018 Reviewed by: Sharmila Jang CEMENT SPRAYER HELPER - Fully Assessed Reason for Visit: Prostate [...] Encounter Status:Closed by PRAVIN PEDRAZA on 06/22/18 [facility] PROGRESSon 06-22-2018 Protein mass conc HNO ID: [id number] Author: Pravin Pedraza Service: ? Author Type: Physician Type: Progress Notes Filed: 06/22/2018 2:57 PM Note Text: ?? [facility] [place] [facility] UR[facility] LOCATION: [address] [place] [address] NEW PATIENT HISTORY AND PHYSICAL EXAM PATIENT INFO: Jorge Covington 62 year old REFERRING M.D.: Self PCP: Brian Zimmerman MD Consultation requested by Self and my final recommendations will be communicated back to the requesting physician by way of shared medical record or letter via [place] mail. Chief Complaint: urinary retention HPI Lamont is here for retention of urine Benson in place Complex hx, no records Here from halfway Failed voiding trial Needs full evaluation 1-Duration: [...] 06/13/2018 7.0 4.5 - 8.0 Final Specific [place], [place] Date Value Ref Range Status 06/13/2018 [...] Flomax Pravin Pedraza DO MBA Letter to: Brian Zimmerman MD [facility] Bacteria identified Anaer cx Nom (Unsp spec) Anaerobic Culture Clostridium perfringens [facility] Work Phone: Bacteria identified Cx Nom ( Wound) Wound Culture Escherichia coli [facility] Work Phone: Wound Culture Staphylococcus aureus [facility] Work Phone: Gram stain for investigation of transfusion reaction Microscopic observation Gram stain Nom (Unsp spec) [facility] Work Phone: Vital Signs Date Time Vital Sign Value Performing Clinician Faci lity 10-03-2024 16:06-0400 Body height 167.[address] Brian Zimmerman MD [facility] 10-03-2024 16:06-0400 Body weight 100.[address] Brian Zimmerman MD [facility] 10-03-2024 16:03-0400 Body temperature 97.3 [degF] Dr. Brian Zimmerman MD [facility] 10-03-2024 16:03-0400 Diastolic blood pressure 84 mm[Hg] Dr. Brian Zimmerman MD [facility] 10-03-2024 16:03-0400 Heart rate 86 /min Dr. Brian Zimmerman MD [facility] 10-03-2024 16:03-0400 Respiratory rate 18 /min Dr. Brian Zimmerman MD [facility] 10-03-2024 16:03-0400 Systolic blood pressure 127 mm[Hg] Dr. Brian Zimmerman MD [facility] 08-29-2024 16:27-0400 Body height 167.[address] Brian Zimmerman MD [facility] 08-29-2024 16:27-0400 Body weight 100.[address] Brian Zimmerman MD [facility] 08-29-2024 14:52-0400 Body mass index (BMI) [Ratio] 35.5 kg/m2 Dr. Brian Zimmerman MD [facility] 08-29-2024 14:52-0400 Body temperature 97.7 [degF] Dr. Brian Zimmerman MD [facility] 08-29-2024 14:52-0400 Diastolic blood pressure 116 mm[Hg] Dr. Brian Zimmerman MD [facility] 08-29-2024 14:52-0400 Heart rate 78 /min Dr. Brian Zimmerman MD [facility] 08-29-2024 14:52-0400 Respiratory rate 18 /min Dr. Brian Zimmerman MD [facility] 08-29-2024 14:52-0400 Systolic blood pressure 192 mm[Hg] Dr. Brian Zimmerman MD [facility] 08-07-2024 21:07-0400 Diastolic blood pressure 74 mm[Hg] Dr. Brian Zimmerman MD [facility] 08-07-2024 21:07-0400 Heart rate 80 /min Dr. Brian Zimmerman MD [facility] 08-07-2024 21:07-0400 Respiratory rate 18 /min Dr. Brian Zimmerman MD [facility] 08-07-2024 21:07-0400 SaO2% (BldA) [Mass fraction] 96 % Dr. Brian Zimmerman MD [facility] 08-07-2024 21:07-0400 Systolic blood pressure 140 mm[Hg] Dr. Brian Zimmerman MD [facility] 08-07-2024 20:56-0400 Body temperature 97.9 [degF] Dr. Brian Zimmerman MD [facility] 08-07-2024 17:50-0400 Body height 167.[address] Brian Zimmerman MD [facility] 08-07-2024 17:50-0400 Body mass index (BMI) [Ratio] 35.9 kg/m2 Dr. Brian Zimmerman MD [facility] 08-07-2024 17:50-0400 Body weight 100.[address] Brian Zimmerman MD [facility] 08-02-2024 17:11-0400 Diastolic blood pressure 73 mm[Hg] Cristy GONZALEZ Work Phone: [facility] 08-02-2024 17:11-0400 SaO2% (BldA) [Mass fraction] 94 % Cristy Bearden PA Work Phone: [facility] 08-02-2024 17:11-0400 Systolic blood pressure 120 mm[Hg] Cristy Bearden PA Work Phone: [facility] 08-02-2024 16:00-0400 Heart rate 71 /min Cristy Bearden PA Work Phone: [facility] 08-02-2024 16:00-0400 Respiratory rate 15 /min Cristy Bearden PA Work Phone: [facility] 08-02-2024 14:25-0400 Body temperature 97.9 [degF] Cristy Bearden PA Work Phone: [facility] 08-02-2024 10:56-0400 Inhaled oxygen flow rate 2 L/min Cristy Bearden PA Work Phone: [facility] 08-02-2024 10:52-0400 Body height 167.64 cm Cristy Bearden PA Work Phone: [facility] 08-02-2024 10:52-0400 Body mass index (BMI) [Ratio] 37 kg/m2 Cristy Bearden PA Work Phone: [facility] 08-02-2024 10:52-0400 Body weight 104 kg Cristy Bearden PA Work Phone: [facility] 08-01-2024 16:24-0400 Body weight 97.4 kg Cristy Bearden PA Work Phone: [facility] 08-01-2024 14:04-0400 Body temperature 98.2 [degF] Cristy Bearden PA Work Phone: [facility] 08-01-2024 14:04-0400 Diastolic blood pressure 79 mm[Hg] Cristy Bearden PA Work Phone: [facility] 08-01-2024 14:04-0400 Heart rate 65 /min Cristy Bearden PA Work Phone: [facility] 08-01-2024 14:04-0400 Respiratory rate 16 /min Cristy Bearden PA Work Phone: [facility] 08-01-2024 14:04-0400 SaO2% (BldA) [Mass fraction] 97 % Cristy Bearden PA Work Phone: [facility] 08-01-2024 14:04-0400 Systolic blood pressure 140 mm[Hg] Cristy Bearden PA Work Phone: [facility] 08-01-2024 03:26-0400 Body mass index (BMI) [Ratio] 34.4 kg/m2 Cristy Bearden PA Work Phone: [facility] 07-25-2024 10:49-0400 Body mass index (BMI) [Ratio] 35.5 kg/m2 Cristy Bearden PA Work Phone: [facility] 07-25-2024 10:49-0400 Body temperature 97.3 [degF] Cristy Bearden PA Work Phone: [facility] 07-25-2024 10:49-0400 Diastolic blood pressure 70 mm[Hg] Cristy Bearden PA Work Phone: [facility] 07-25-2024 10:49-0400 Heart rate 79 /min Cristy Bearden PA Work Phone: [facility] 07-25-2024 10:49-0400 Respiratory rate 18 /min Cristy Bearden PA Work Phone: [facility] 07-25-2024 10:49-0400 Systolic blood pressure 124 mm[Hg] Cristy Bearden PA Work Phone: [facility] 06-28-2024 00:51-0400 Body weight 99.3 kg Cristy Bearden PA Work Phone: [facility] 06-27-2024 15:07-0400 Body mass index (BMI) [Ratio] 35.5 kg/m2 Cristy Bearden PA Work Phone: [facility] 06-27-2024 15:07-0400 Body temperature 98.8 [degF] Cristy Bearden PA Work Phone: [facility] 06-27-2024 15:07-0400 Diastolic blood pressure 77 mm[Hg] Cristy Bearden PA Work Phone: [facility] 06-27-2024 15:07-0400 Heart rate 91 /min Cristy Bearden PA Work Phone: [facility] 06-27-2024 15:07-0400 Respiratory rate 16 /min Cristy Bearden PA Work Phone: [facility] 06-27-2024 15:07-0400 Systolic blood pressure 137 mm[Hg] Cristy Bearden PA Work Phone: [facility] 06-12-2024 14:18-0400 Diastolic blood pressure 70 mm[Hg] Cristy Bearden PA Work Phone: [facility] 06-12-2024 14:18-0400 Heart rate 74 /min Cristy Bearden PA Work Phone: [facility] 06-12-2024 14:18-0400 Respiratory rate 16 /min Cristy Bearden PA Work Phone: [facility] 06-12-2024 14:18-0400 SaO2% (BldA) [Mass fraction] 94 % Cristy Bearden PA Work Phone: [facility] 06-12-2024 14:18-0400 Systolic blood pressure 121 mm[Hg] Cristy Bearden PA Work Phone: [facility] 06-12-2024 10:21-0400 Body temperature 98.1 [degF] Cristy Bearden PA Work Phone: [facility] 06-10-2024 11:09-0400 Body height 167.64 cm Cristy Bearden PA Work Phone: [facility] 06-10-2024 11:09-0400 Body weight 96.75 kg Cristy Bearden PA Work Phone: [facility] 06-09-2024 13:38-0400 Inhaled oxygen flow rate 3 L/min Cristy Bearden PA Work Phone: [facility] 06-09-2024 13:29-0400 Body mass index (BMI) [Ratio] 34.4 kg/m2 Cristy Bearden PA Work Phone: [facility] 06-09-2024 12:51-0400 Body temperature 98.8 [degF] Cristy Bearden PA Work Phone: [facility] 06-09-2024 12:51-0400 Diastolic blood pressure 74 mm[Hg] Cristy Bearden PA Work Phone: [facility] 06-09-2024 12:51-0400 Heart rate 104 /min Cristy Bearden PA Work Phone: [facility] 06-09-2024 12:51-0400 Respiratory rate 18 /min Cristy Bearden PA Work Phone: [facility] 06-09-2024 12:51-0400 SaO2% (BldA) [Mass fraction] 96 % Cristy Bearden PA Work Phone: [facility] 06-09-2024 12:51-0400 Systolic blood pressure 110 mm[Hg] Cristy Bearden PA Work Phone: [facility] 06-09-2024 11:00-0400 Inhaled oxygen flow rate 2 L/min Cristy Bearden PA Work Phone: [facility] 06-09-2024 09:00-0400 Body height 167.64 cm Cristy Bearden PA Work Phone: [facility] 06-09-2024 09:00-0400 Body mass index (BMI) [Ratio] 35.3 kg/m2 Cristy Bearden PA Work Phone: [facility] 06-09-2024 09:00-0400 Body weight 99.3 kg Cristy Bearden PA Work Phone: [facility] 05-30-2024 16:12-0500 Body weight 99.3 kg Cristy Bearden PA Work Phone: [facility] 05-30-2024 15:13-0500 Body mass index (BMI) [Ratio] 35.5 kg/m2 Cristy Bearden PA Work Phone: [facility] 05-30-2024 15:13-0500 Body temperature 98.1 [degF] Cristy Bearden PA Work Phone: [facility] 05-30-2024 15:13-0500 Diastolic blood pressure 79 mm[Hg] Cristy Bearden PA Work Phone: [facility] 05-30-2024 15:13-0500 Heart rate 90 /min Cristy Bearden PA Work Phone: [facility] 05-30-2024 15:13-0500 Respiratory rate 16 /min Cristy Bearden PA Work Phone: [facility] 05-30-2024 15:13-0500 Systolic blood pressure 117 mm[Hg] Cristy Bearden PA Work Phone: [facility] 05-02-2024 15:21-0500 Body weight 99.3 kg Cristy Bearden PA Work Phone: [facility] 05-02-2024 14:54-0500 Body mass index (BMI) [Ratio] 35.5 kg/m2 Cristy Bearden PA Work Phone: [facility] 05-02-2024 14:54-0500 Body temperature 98.5 [degF] Cristy Bearden PA Work Phone: [facility] 05-02-2024 14:54-0500 Diastolic blood pressure 59 mm[Hg] Cristy Bearden PA Work Phone: [facility] 05-02-2024 14:54-0500 Heart rate 89 /min Cristy Bearden PA Work Phone: [facility] 05-02-2024 14:54-0500 Respiratory rate 18 /min Cristy Bearden PA Work Phone: [facility] 05-02-2024 14:54-0500 Systolic blood pressure 110 mm[Hg] Cristy Bearden PA Work Phone: [facility] 04-04-2024 15:44-0500 Body mass index (BMI) [Ratio] 35.5 kg/m2 Cristy Bearden PA Work Phone: [facility] 04-04-2024 15:44-0500 Respiratory rate 16 /min Cristy Bearden PA Work Phone: [facility] 03-30-2024 00:12-0500 Body temperature 96.6 [degF] Cristy Bearden PA Work Phone: [facility] 03-30-2024 00:12-0500 Body weight 99.79 kg Cristy Bearden PA Work Phone: [facility] 03-30-2024 00:12-0500 Diastolic blood pressure 105 mm[Hg] Cristy Bearden PA Work Phone: [facility] 03-30-2024 00:12-0500 Heart rate 90 /min Cristy Bearden PA Work Phone: [facility] 03-30-2024 00:12-0500 Systolic blood pressure 154 mm[Hg] Cristy Bearden PA Work Phone: [facility] 03-21-2024 15:42-0500 Body mass index (BMI) [Ratio] 35.5 kg/m2 Cristy Bearden PA Work Phone: [facility] 03-21-2024 15:42-0500 Body temperature 98.8 [degF] Cristy Bearden PA Work Phone: [facility] 03-21-2024 15:42-0500 Diastolic blood pressure 84 mm[Hg] Cristy Bearden PA Work Phone: [facility] 03-21-2024 15:42-0500 Heart rate 92 /min Cristy Bearden PA Work Phone: [facility] 03-21-2024 15:42-0500 Respiratory rate 18 /min Cristy Bearden PA Work Phone: [facility] 03-21-2024 15:42-0500 Systolic blood pressure 157 mm[Hg] Cristy Bearden PA Work Phone: [facility] 02-28-2024 00:17-0500 Body weight 99.79 kg Cristy Bearden PA Work Phone: [facility] 02-24-2024 15:06-0500 Body mass index (BMI) [Ratio] 35.5 kg/m2 Cristy Bearden PA Work Phone: [facility] 02-24-2024 15:06-0500 Body temperature 98.1 [degF] Cristy Bearden PA Work Phone: [facility] 02-24-2024 15:06-0500 Diastolic blood pressure 86 mm[Hg] Cristy Bearden PA Work Phone: [facility] 02-24-2024 15:06-0500 Heart rate 84 /min Cristy Bearden PA Work Phone: [facility] 02-24-2024 15:06-0500 Respiratory rate 16 /min Cristy Bearden PA Work Phone: [facility] 02-24-2024 15:06-0500 Systolic blood pressure 142 mm[Hg] Cristy Bearden PA Work Phone: [facility] 01-29-2024 00:20-0400 Body weight 99.79 kg Cristy Bearden PA Work Phone: [facility] 01-22-2024 09:34-0400 Body height 167.6 cm Rikki Casas MD Work Phone: [facility] 01-22-2024 09:34-0400 Body mass index (BMI) [Ratio] 29.05 kg/m2 Rikki Casas MD Work Phone: [facility] 01-22-2024 09:34-0400 Body weight 81.65 kg Rikki Casas MD Work Phone: [facility] 12-11-2023 14:35-0400 Diastolic blood pressure 73 mm[Hg] Rikki Casas MD Work Phone: [facility] 12-11-2023 14:35-0400 Heart rate 67 /min Rikki Casas MD Work Phone: [facility] 12-11-2023 14:35-0400 SaO2% (BldA) [Mass fraction] 99 % Rikki Casas MD Work Phone: [facility] 12-11-2023 14:35-0400 Systolic blood pressure 105 mm[Hg] Rikki Casas MD Work Phone: [facility] 12-11-2023 14:00-0400 Body temperature 97.5 [degF] Rikki Casas MD Work Phone: [facility] 12-11-2023 14:00-0400 Respiratory rate 16 /min Rikki Casas MD Work Phone: [facility] 07-22-2023 13:04-0400 Body mass index (BMI) [Ratio] 35.5 kg/m2 [employer] Kemi Ramiro LABEL PRINTER Work Phone: [facility] 07-22-2023 13:04-0400 Body temperature 96.6 [degF] [employer] PRINTER[employer] Kemi Ramiro LABEL PRINTER Work Phone: [facility] 07-22-2023 13:04-0400 Diastolic blood pressure 105 mm[Hg] [employer] PRINTER[employer] Kemi Ramiro LABEL PRINTER Work Phone: [facility] 07-22-2023 13:04-0400 Heart rate 90 /min [employer] Kemi Ramiro LABEL PRINTER Work Phone: [facility] 07-22-2023 13:04-0400 Respiratory rate 18 /min [employer] Kemi Ramiro LABEL PRINTER Work Phone: [facility] 07-22-2023 13:04-0400 Systolic blood pressure 154 mm[Hg] [employer] PRINTER[employer]C Kemi Ramiro LABEL PRINTER Work Phone: [facility] 07-02-2023 16:59-0400 Body height 167.64 cm LAB[employer] PRINTER[employer]C Kemi Ramiro LABEL PRINTER Work Phone: [facility] 07-02-2023 16:59-0400 Body mass index (BMI) [Ratio] 26.6 kg/m2 [employer]INTER[employer] Kemi Ramiro LABEL PRINTER Work Phone: [facility] 07-02-2023 16:59-0400 Body temperature 98.1 [degF] [employer] PRINTER[employer]C Kemi Ramiro LABEL PRINTER Work Phone: [facility] 07-02-2023 16:59-0400 Body weight 74.84 kg [employer] PR[employer] Kemi Ramiro LABEL PRINTER Work Phone: [facility] 07-02-2023 16:59-0400 Diastolic blood pressure 72 mm[Hg] [employer] PRINTER[employer] Kemi Ramiro LABEL PRINTER Work Phone: [facility] 07-02-2023 16:59-0400 Heart rate 84 /min [employer] PR[employer] Kemi Ramiro LABEL PRINTER Work Phone: [facility] 07-02-2023 16:59-0400 Respiratory rate 14 /min [employer] PR[employer] Kemi Ramiro LABEL PRINTER Work Phone: [facility] 07-02-2023 16:59-0400 SaO2% (BldA) [Mass fraction] 94 % [employer] Kemi Ramiro LABEL PRINTER Work Phone: [facility] 07-02-2023 16:59-0400 Systolic blood pressure 114 mm[Hg] [employer] PRINTER[employer]C Kemi Ramiro LABEL PRINTER Work Phone: [facility] 06-29-2023 00:27-0400 Body weight 99.79 kg LAB[employer] PRINTER[employer] Kemi Ramiro LABEL PRINTER Work Phone: [facility] 06-15-2023 09:34-0400 Body mass index (BMI) [Ratio] 35.5 kg/m2 [employer] Kemi Ramiro LABEL PRINTER Work Phone: [facility] 06-15-2023 09:34-0400 Body temperature 97.4 [degF] [employer] PR[employer] Kemi Ramiro LABEL PRINTER Work Phone: [facility] 06-15-2023 09:34-0400 Diastolic blood pressure 89 mm[Hg] [employer] PRINTER[employer] Kemi Ramiro LABEL PRINTER Work Phone: [facility] 06-15-2023 09:34-0400 Heart rate 85 /min [employer] Kemi Ramiro LABEL PRINTER Work Phone: [facility] 06-15-2023 09:34-0400 Respiratory rate 16 /min [employer] PR[employer] Kemi Ramiro LABEL PRINTER Work Phone: [facility] 06-15-2023 09:34-0400 Systolic blood pressure 144 mm[Hg] [employer] PRINTER[employer]C Kemi Ramiro LABEL PRINTER Work Phone: [facility] 05-29-2023 00:38-0500 Body weight 99.79 kg LAB[employer] PRINTER[employer]C Kemi Ramiro LABEL PRINTER Work Phone: [facility] 05-18-2023 09:04-0500 Body mass index (BMI) [Ratio] 35.5 kg/m2 [employer] PR[employer] Kemi Ramiro LABEL PRINTER Work Phone: [facility] 05-18-2023 09:04-0500 Body temperature 96.2 [degF] [employer] PRINTER[employer]C Kemi Ramiro LABEL PRINTER Work Phone: [facility] 05-18-2023 09:04-0500 Diastolic blood pressure 96 mm[Hg] [employer] PRINTER[employer]C Kemi Ramiro LABEL PRINTER Work Phone: [facility] 05-18-2023 09:04-0500 Heart rate 91 /min [employer] Kemi Ramiro LABEL PRINTER Work Phone: [facility] 05-18-2023 09:04-0500 Respiratory rate 16 /min [employer] PR[employer] Kemi Ramiro LABEL PRINTER Work Phone: [facility] 05-18-2023 09:04-0500 Systolic blood pressure 147 mm[Hg] LAB[employer] PRINTER[employer]C Kemi Ramiro LABEL PRINTER Work Phone: [facility] 04-30-2023 00:55-0500 Body weight 99.79 kg LAB[employer] PRINTER[employer]C Kemi Ramiro LABEL PRINTER Work Phone: [facility] 04-21-2023 13:42-0500 Body mass index (BMI) [Ratio] 35.5 kg/m2 [employer] PR[employer] Kemi Ramiro LABEL PRINTER Work Phone: [facility] 04-21-2023 13:42-0500 Body temperature 97.6 [degF] LAB[employer] PRINTER[employer]C Kemi Ramiro LABEL PRINTER Work Phone: [facility] 04-21-2023 13:42-0500 Diastolic blood pressure 92 mm[Hg] LAB[employer] PRINTER[employer]C Kemi Ramiro LABEL PRINTER Work Phone: [facility] 04-21-2023 13:42-0500 Heart rate 87 /min LAB[employer] PRINTER[employer] Kemi Ramiro LABEL PRINTER Work Phone: [facility] 04-21-2023 13:42-0500 Respiratory rate 18 /min [employer] PR[employer] Kemi Ramiro LABEL PRINTER Work Phone: [facility] 04-21-2023 13:42-0500 Systolic blood pressure 163 mm[Hg] LAB[employer] PRINTER[employer]C Kemi Ramiro LABEL PRINTER Work Phone: [facility] 03-30-2023 00:45-0500 Body weight 99.79 kg LAB[employer] PRINTER[employer]C Kemi Ramiro LABEL PRINTER Work Phone: [facility] 03-16-2023 08:57-0500 Body mass index (BMI) [Ratio] 35.5 kg/m2 [employer] PR[employer]C Kemi Ramiro LABEL PRINTER Work Phone: [facility] 03-16-2023 08:57-0500 Body temperature 97.1 [degF] LAB[employer] PRINTER[employer]C Kemi Ramiro LABEL PRINTER Work Phone: [facility] 03-16-2023 08:57-0500 Diastolic blood pressure 74 mm[Hg] LAB[employer] PRINTER[employer]C Kemi Ramiro LABEL PRINTER Work Phone: [facility] 03-16-2023 08:57-0500 Heart rate 91 /min LAB[employer] PR[employer] Kemi Ramiro LABEL PRINTER Work Phone: [facility] 03-16-2023 08:57-0500 Respiratory rate 18 /min LAB[employer] PRINTER[employer] Kemi Ramiro LABEL PRINTER Work Phone: [facility] 03-16-2023 08:57-0500 Systolic blood pressure 145 mm[Hg] LAB[employer] PRINTER[employer]C Kemi Ramiro LABEL PRINTER Work Phone: [facility] 02-27-2023 00:47-0500 Body weight 99.79 kg LABEL PRINTER[employer]C Kemi Ramiro LABEL PRINTER Work Phone: [facility] 02-16-2023 08:54-0500 Body mass index (BMI) [Ratio] 35.5 kg/m2 [employer] PR[employer] Kemi Ramiro LABEL PRINTER Work Phone: [facility] 02-16-2023 08:54-0500 Body temperature 95.3 [degF] LAB[employer] PRINTER[employer]C Kemi Ramiro LABEL PRINTER Work Phone: [facility] 02-16-2023 08:54-0500 Diastolic blood pressure 81 mm[Hg] LAB[employer] PRINTER[employer]C Kemi Ramiro LABEL PRINTER Work Phone: [facility] 02-16-2023 08:54-0500 Heart rate 83 /min LAB[employer] PRINTER[employer]C Kemi Ramiro LABEL PRINTER Work Phone: [facility] 02-16-2023 08:54-0500 Respiratory rate 16 /min LAB[employer] PRINTER[employer]C Kemi Ramiro LABEL PRINTER Work Phone: [facility] 02-16-2023 08:54-0500 Systolic blood pressure 136 mm[Hg] LABEL PRINTER-C Kemi Ramiro LABEL PRINTER Work Phone: [facility] 01-28-2023 00:48-0400 Body weight 99.79 kg LABEL PRINTER-C Kemi Ramiro LABEL PRINTER Work Phone: [facility] 01-19-2023 08:17-0400 Body mass index (BMI) [Ratio] 35.5 kg/m2 LAB[employer] PRINTER[employer]C Kemi Ramiro LABEL PRINTER Work Phone: [facility] 01-19-2023 08:17-0400 Body temperature 96.7 [degF] LABEL PRINTER-C Kemi Ramiro LABEL PRINTER Work Phone: [facility] 01-19-2023 08:17-0400 Diastolic blood pressure 64 mm[Hg] LABEL PRINTER-C Kemi Ramiro LABEL PRINTER Work Phone: [facility] 01-19-2023 08:17-0400 Heart rate 74 /min LAB[employer] PRINTER-C Kemi Ramiro LABEL PRINTER Work Phone: [facility] 01-19-2023 08:17-0400 Respiratory rate 16 /min LAB[employer] PRINTER-C Kemi Ramiro LABEL PRINTER Work Phone: [facility] 01-19-2023 08:17-0400 Systolic blood pressure 118 mm[Hg] LABEL PRINTER-C Kemi Ramiro LABEL PRINTER Work Phone: [facility] 12-28-2022 00:40-0400 Body weight 99.79 kg LABEL PRINTER-C Kemi Ramiro LABEL PRINTER Work Phone: [facility] 12-08-2022 08:52-0400 Body mass index (BMI) [Ratio] 35.5 kg/m2 LAB[employer] PRINTER[employer]C Kemi Ramiro LABEL PRINTER Work Phone: [facility] 12-08-2022 08:52-0400 Body temperature 96.7 [degF] LABEL PRINTER-C Kemi Ramiro LABEL PRINTER Work Phone: [facility] 12-08-2022 08:52-0400 Diastolic blood pressure 67 mm[Hg] LABEL PRINTER-C Kemi Ramiro LABEL PRINTER Work Phone: [facility] 12-08-2022 08:52-0400 Heart rate 80 /min LAB[employer] PRINTER-C Kemi Ramiro LABEL PRINTER Work Phone: [facility] 12-08-2022 08:52-0400 Respiratory rate 18 /min LAB[employer] PRINTER-C Kemi Ramiro LABEL PRINTER Work Phone: [facility] 12-08-2022 08:52-0400 Systolic blood pressure 133 mm[Hg] LABEL PRINTER-C Kemi Ramiro LABEL PRINTER Work Phone: [facility] 11-28-2022 00:28-0400 Body weight 99.79 kg LABEL PRINTER-C Kemi Ramiro LABEL PRINTER Work Phone: [facility] 11-24-2022 15:31-0400 Body temperature 98.7 [degF] LABEL PRINTER-C Kemi Ramiro LABEL PRINTER Work Phone: [facility] 11-24-2022 15:31-0400 Diastolic blood pressure 66 mm[Hg] LABEL PRINTER-C Kemi Ramiro LABEL PRINTER Work Phone: [facility] 11-24-2022 15:31-0400 Heart rate 61 /min LAB[employer] PRINTER-C Kemi Ramiro LABEL PRINTER Work Phone: [facility] 11-24-2022 15:31-0400 Respiratory rate 18 /min LABEL PRINTER-C Kemi Ramiro LABEL PRINTER Work Phone: [facility] 11-24-2022 15:31-0400 SaO2% (BldA) [Mass fraction] 97 % LAB[employer] PRINTER-C Kemi Ramiro LABEL PRINTER Work Phone: [facility] 11-24-2022 15:31-0400 Systolic blood pressure 133 mm[Hg] LABEL PRINTER-C Kemi Ramiro LABEL PRINTER Work Phone: [facility] 11-21-2022 16:22-0400 Body height 167.64 cm LABEL PRINTER-C Kemi Ramiro LABEL PRINTER Work Phone: [facility] 11-21-2022 16:22-0400 Body mass index (BMI) [Ratio] 24.2 kg/m2 LAB[employer] PRINTER-C Kemi Ramiro LABEL PRINTER Work Phone: [facility] 11-21-2022 16:22-0400 Body weight 68 kg LABEL PRINTER-C Kemi Ramiro LABEL PRINTER Work Phone: [facility] 11-10-2022 08:37-0400 Body mass index (BMI) [Ratio] 35.5 kg/m2 LAB[employer] PRINTER-C Kemi Ramiro LABEL PRINTER Work Phone: [facility] 11-10-2022 08:37-0400 Diastolic blood pressure 75 mm[Hg] LABEL PRINTER-C Kemi Ramiro LABEL PRINTER Work Phone: [facility] 11-10-2022 08:37-0400 Heart rate 70 /min LABEL PRINTER-C Kemi Ramiro LABEL PRINTER Work Phone: [facility] 11-10-2022 08:37-0400 Respiratory rate 16 /min LAB[employer] PRINTER-C Kemi Ramiro LABEL PRINTER Work Phone: [facility] 11-10-2022 08:37-0400 Systolic blood pressure 114 mm[Hg] LABEL PRINTER-C Kemi Ramiro LABEL PRINTER Work Phone: [facility] 10-28-2022 00:15-0400 Body temperature 96.9 [degF] LABEL PRINTER-C Kemi Ramiro LABEL PRINTER Work Phone: [facility] 10-28-2022 00:15-0400 Body weight 99.79 kg LABEL PRINTER-C Kemi Ramiro LABEL PRINTER Work Phone: [facility] 10-20-2022 08:28-0400 Body mass index (BMI) [Ratio] 35.5 kg/m2 PA Cristy Biedenharn Work Phone: [facility] 10-20-2022 08:28-0400 Body temperature 96.9 [degF] PA Cristy Biedenharn Work Phone: [facility] 10-20-2022 08:28-0400 Diastolic blood pressure 60 mm[Hg] PA Cristy Biedenharn Work Phone: [facility] 10-20-2022 08:28-0400 Heart rate 85 /min PA Crsity Biedenharn Work Phone: [facility] 10-20-2022 08:28-0400 Respiratory rate 16 /min PA Cristy Biedenharn Work Phone: [facility] 10-20-2022 08:28-0400 Systolic blood pressure 100 mm[Hg] PA Cristy Biedenharn Work Phone: [facility] 09-27-2022 00:55-0400 Body weight 99.79 kg PA Cristy Biedenharn Work Phone: [facility] 09-15-2022 08:09-0400 Body mass index (BMI) [Ratio] 35.5 kg/m2 Dr. Brian Zimmerman Work Phone: [facility] 09-15-2022 08:09-0400 Body temperature 96.2 [degF] Dr. Brian Zimmerman Work Phone: [facility] 09-15-2022 08:09-0400 Diastolic blood pressure 56 mm[Hg] Dr. Brian Zimmerman Work Phone: [facility] 09-15-2022 08:09-0400 Heart rate 76 /min Dr. Brian Zimmerman Work Phone: [facility] 09-15-2022 08:09-0400 Respiratory rate 16 /min Dr. Brian Zimmerman Work Phone: [facility] 09-15-2022 08:09-0400 Systolic blood pressure 120 mm[Hg] Dr. Brian Zimmerman Work Phone: [facility] 09-05-2022 08:48-0400 Body temperature 97.3 [degF] Dr. Brian Zimmerman Work Phone: [facility] 09-05-2022 08:48-0400 Diastolic blood pressure 69 mm[Hg] Dr. Brian Zimmerman Work Phone: [facility] 09-05-2022 08:48-0400 Heart rate 80 /min Dr. Brian Zimmerman Work Phone: [facility] 09-05-2022 08:48-0400 Respiratory rate 18 /min Dr. Brian Zimmerman Work Phone: [facility] 09-05-2022 08:48-0400 SaO2% (BldA) [Mass fraction] 95 % Dr. Brian Zimmerman Work Phone: [facility] 09-05-2022 08:48-0400 Systolic blood pressure 117 mm[Hg] Dr. Brian Zimmerman Work Phone: [facility] 08-28-2022 00:23-0400 Body weight 99.[address] Brian Zimmerman Work Phone: [facility] 08-18-2022 08:35-0400 Body mass index (BMI) [Ratio] 35.5 kg/m2 Dr. Brian Zimmerman Work Phone: [facility] 08-18-2022 08:35-0400 Body temperature 97.2 [degF] Dr. Brian Zimmerman Work Phone: [facility] 08-18-2022 08:35-0400 Diastolic blood pressure 53 mm[Hg] Dr. Brian Zimmerman Work Phone: [facility] 08-18-2022 08:35-0400 Heart rate 81 /min Dr. Brian Zimmerman Work Phone: [facility] 08-18-2022 08:35-0400 Respiratory rate 16 /min Dr. Brian Zimmerman Work Phone: [facility] 08-18-2022 08:35-0400 Systolic blood pressure 112 mm[Hg] Dr. Brian Zimmerman Work Phone: [facility] 07-28-2022 00:25-0400 Body weight 99.[address] Brian Zimmerman Work Phone: [facility] 07-14-2022 08:21-0400 Body mass index (BMI) [Ratio] 35.5 kg/m2 Dr. Brian Zimmerman Work Phone: [facility] 07-14-2022 08:21-0400 Body temperature 96.8 [degF] Dr. Brian Zimmerman Work Phone: [facility] 07-14-2022 08:21-0400 Diastolic blood pressure 67 mm[Hg] Dr. Brian Zimmerman Work Phone: [facility] 07-14-2022 08:21-0400 Heart rate 84 /min Dr. Brian Zimmerman Work Phone: [facility] 07-14-2022 08:21-0400 Respiratory rate 18 /min Dr. Brian Zimmerman Work Phone: [facility] 07-14-2022 08:21-0400 Systolic blood pressure 118 mm[Hg] Dr. Brian Zimmerman Work Phone: [facility] 06-28-2022 01:16-0400 Body weight 99.[address] Brian Zimmerman Work Phone: [facility] 06-18-2022 14:35-0400 Body temperature 97.6 [degF] Dr. Brian Zimmerman Work Phone: [facility] 06-18-2022 14:35-0400 Diastolic blood pressure 64 mm[Hg] Dr. Brian Zimmerman Work Phone: [facility] 06-18-2022 14:35-0400 Heart rate 77 /min Dr. Brian Zimmerman Work Phone: [facility] 06-18-2022 14:35-0400 Respiratory rate 16 /min Dr. Brian Zimmerman Work Phone: [facility] 06-18-2022 14:35-0400 SaO2% (BldA) [Mass fraction] 97 % Dr. Brian Zimmerman Work Phone: [facility] 06-18-2022 14:35-0400 Systolic blood pressure 95 mm[Hg] Dr. Brian Zimmerman Work Phone: [facility] 06-18-2022 12:17-0400 Body height 167.[address] Brian Zimmerman Work Phone: [facility] 06-18-2022 12:17-0400 Body mass index (BMI) [Ratio] 30.3 kg/m2 Dr. Brian Zimmerman Work Phone: [facility] 06-18-2022 12:17-0400 Body weight 85.[address] Brian Zimmerman Work Phone: [facility] 06-09-2022 08:15-0400 Body mass index (BMI) [Ratio] 35.5 kg/m2 Dr. Brian Zimmerman Work Phone: [facility] 06-09-2022 08:15-0400 Body temperature 95.9 [degF] Dr. Brian Zimmerman Work Phone: [facility] 06-09-2022 08:15-0400 Diastolic blood pressure 56 mm[Hg] Dr. Brian Zimmerman Work Phone: [facility] 06-09-2022 08:15-0400 Heart rate 86 /min Dr. Brian Zimmerman Work Phone: [facility] 06-09-2022 08:15-0400 Respiratory rate 16 /min Dr. Brian Zimmerman Work Phone: [facility] 06-09-2022 08:15-0400 Systolic blood pressure 131 mm[Hg] Dr. Brian Zimmerman Work Phone: [facility] 05-28-2022 00:14-0500 Body weight 99.[address] Brian Zimmerman Work Phone: [facility] 05-27-2022 13:34-0500 Body height 167.[address] Brian Zimmerman Work Phone: [facility] 05-27-2022 13:34-0500 Body mass index (BMI) [Ratio] 30.3 kg/m2 Dr. Brian Zimmerman Work Phone: [facility] 05-27-2022 13:34-0500 Body weight 85.[address] Brian Zimmerman Work Phone: [facility] 05-27-2022 13:34-0500 Diastolic blood pressure 70 mm[Hg] Dr. Brian Zimmerman Work Phone: [facility] 05-27-2022 13:34-0500 Respiratory rate 18 /min Dr. Brian Zimmerman Work Phone: [facility] 05-27-2022 13:34-0500 Systolic blood pressure 139 mm[Hg] Dr. Brian Zimmerman Work Phone: [facility] 05-26-2022 08:40-0500 Body mass index (BMI) [Ratio] 35.5 kg/m2 Dr. Brian Zimmerman Work Phone: [facility] 05-26-2022 08:40-0500 Body temperature 96.4 [degF] Dr. Brian Zimmerman Work Phone: [facility] 05-26-2022 08:40-0500 Diastolic blood pressure 61 mm[Hg] Dr. Brian Zimmerman Work Phone: [facility] 05-26-2022 08:40-0500 Heart rate 82 /min Dr. Brian Zimmerman Work Phone: [facility] 05-26-2022 08:40-0500 Respiratory rate 16 /min Dr. Brian Zimmerman Work Phone: [facility] 05-26-2022 08:40-0500 Systolic blood pressure 111 mm[Hg] Dr. Brian Zimmerman Work Phone: [facility] 05-02-2022 15:16-0500 Diastolic blood pressure 67 mm[Hg] Dr. Brian Zimmerman Work Phone: [facility] 05-02-2022 15:16-0500 Heart rate 80 /min Dr. Brian Zimmerman Work Phone: [facility] 05-02-2022 15:16-0500 Respiratory rate 16 /min Dr. Brian Zimmerman Work Phone: [facility] 05-02-2022 15:16-0500 SaO2% (BldA) [Mass fraction] 95 % Dr. Brian Zimmerman Work Phone: [facility] 05-02-2022 15:16-0500 Systolic blood pressure 125 mm[Hg] Dr. Brian Zimmerman Work Phone: [facility] 05-02-2022 12:41-0500 Inhaled oxygen flow rate 2 L/min Dr. Brian Zimmerman Work Phone: [facility] 05-02-2022 12:04-0500 Body temperature 98.2 [degF] Dr. Brian Zimmerman Work Phone: [facility] 05-02-2022 12:00-0500 Body height 167.[address] Brian Zimmerman Work Phone: [facility] 05-02-2022 12:00-0500 Body mass index (BMI) [Ratio] 29.6 kg/m2 Dr. Brian Zimmerman Work Phone: [facility] 05-02-2022 12:00-0500 Body weight 83.[address] Brian Zimmerman Work Phone: [facility] 04-30-2022 14:49-0500 Respiratory rate 18 /min Dr. Brian Zimmerman Work Phone: [facility] 04-30-2022 12:12-0500 Body temperature 97.9 [degF] Dr. Brian Zimmerman Work Phone: [facility] 04-30-2022 12:12-0500 Diastolic blood pressure 65 mm[Hg] Dr. Brian Zimmerman Work Phone: [facility] 04-30-2022 12:12-0500 Heart rate 80 /min Dr. Brian Zimmerman Work Phone: [facility] 04-30-2022 12:12-0500 SaO2% (BldA) [Mass fraction] 92 % Dr. Brian Zimmerman Work Phone: [facility] 04-30-2022 12:12-0500 Systolic blood pressure 112 mm[Hg] Dr. Brian Zimmerman Work Phone: [facility] 04-30-2022 00:20-0500 Body weight 99.[address] Brian Zimmerman Work Phone: [facility] 04-29-2022 21:33-0500 Body temperature 97.8 [degF] Dr. Brian Zimmerman Work Phone: [facility] 04-29-2022 21:33-0500 Diastolic blood pressure 65 mm[Hg] Dr. Brian Zimmerman Work Phone: [facility] 04-29-2022 21:33-0500 Heart rate 77 /min Dr. Brian Zimmerman Work Phone: [facility] 04-29-2022 21:33-0500 Respiratory rate 16 /min Dr. Brain Zimmerman Work Phone: [facility] 04-29-2022 21:33-0500 SaO2% (BldA) [Mass fraction] 94 % Dr. Brian Zimmerman Work Phone: [facility] 04-29-2022 21:33-0500 Systolic blood pressure 121 mm[Hg] Dr. Brian Zimmerman Work Phone: [facility] 04-29-2022 13:32-0500 Body height 167.[address] Brian Zimmerman Work Phone: [facility] 04-29-2022 13:32-0500 Body weight 99.[address] Brian Zimmerman Work Phone: [facility] 04-28-2022 17:34-0500 Body mass index (BMI) [Ratio] 35.5 kg/m2 Dr. Brian Zimmerman Work Phone: [facility] 04-25-2022 08:01-0500 Body mass index (BMI) [Ratio] 35.5 kg/m2 Dr. Brian Zimmerman Work Phone: [facility] 04-25-2022 08:01-0500 Body temperature 96.6 [degF] Dr. Brian Zimmerman Work Phone: [facility] 04-25-2022 08:01-0500 Diastolic blood pressure 42 mm[Hg] Dr. Brian Zimmerman Work Phone: [facility] 04-25-2022 08:01-0500 Heart rate 88 /min Dr. Brian Zimmerman Work Phone: [facility] 04-25-2022 08:01-0500 Systolic blood pressure 100 mm[Hg] Dr. Brian Zimmerman Work Phone: [facility] 04-15-2022 13:50-0500 Respiratory rate 16 /min Dr. Brian Zimmerman Work Phone: [facility] 03-30-2022 00:07-0500 Body weight 99.[address] Brian Zimmerman Work Phone: [facility] 03-28-2022 08:11-0500 Body mass index (BMI) [Ratio] 35.5 kg/m2 Dr. Brian Zimmerman Work Phone: [facility] 03-28-2022 08:11-0500 Body temperature 97.1 [degF] Dr. Brian Zimmerman Work Phone: [facility] 03-28-2022 08:11-0500 Diastolic blood pressure 50 mm[Hg] Dr. Brian Zimmerman Work Phone: [facility] 03-28-2022 08:11-0500 Heart rate 85 /min Dr. Brian Zimmerman Work Phone: [facility] 03-28-2022 08:11-0500 Respiratory rate 18 /min Dr. Brian Zimmerman Work Phone: [facility] 03-28-2022 08:11-0500 Systolic blood pressure 88 mm[Hg] Dr. Brian Zimmerman Work Phone: [facility] 02-28-2022 09:40-0500 Body height 167.[address] Brian Zimmerman Work Phone: [facility] Work Phone: 02-28-2022 09:40-0500 Body weight 99.[address] Brian Zimmerman Work Phone: [facility] 02-08-2022 14:59-0500 Diastolic blood pressure 62 mm[Hg] [facility] 02-08-2022 14:59-0500 Heart rate 74 /min [facility] 02-08-2022 14:59-0500 Respiratory rate 14 /min [facility] 02-08-2022 14:59-0500 SaO2% (BldA) [Mass fraction] 99 % [facility] 02-08-2022 14:59-0500 Systolic blood pressure 111 mm[Hg] [facility] 02-08-2022 13:48-0500 Body temperature 97.1 [degF] [facility] 02-08-2022 10:59-0500 Body height 167.64 cm [facility] Work Phone: 02-08-2022 10:59-0500 Body mass index (BMI) [Ratio] 33.5 kg/m2 [facility] 02-08-2022 10:59-0500 Body weight 94.3 kg [facility] Encounters Encounter Date Encounter Type Care Provider Facility Start: 10-04-2024 ambulatory Cristy Bearden Facility:[facility] Start: 10-03-2024 Dr. Luca Nayak MD -[facility] Work Phone: Start: 10-03-2024 ambulatory Luca Nayak Facility:[facility] Start: 09-28-2024 End: 09-28-[address] Brian Zimmerman MD -Laboratory Speci men Start: 09-28-2024 End: 09-28-2024 RIKKI CASAS MD -Laboratory Specimen Work Phone: Start: 09-27-2024 End: 09-30-2024 ambulatory Felipa Santos RN [facility] Start: 09-27-2024 End: 09-30-2024 Patient encounter procedure Felipa Santos RN [facility] Start: 09-16-2024 End: 09-16-2024 Dr. Edmundo Quevdeo MD -[facility] Work Phone: Start: 09-16-2024 End: 09-16-[address] [facility] Work Phone: Start: 08-29-2024 ambulatory Luca Nayak Facility:[facility] Start: 08-29-2024 Dr. Luca Nayak MD -[facility] Start: 08-29-2024 End: 09-26-2024 Dr. Luca Nayak [facility] Work Phone: Start: 08-29-2024 End: 09-26-[address] Brian Zimmerman MD -[facility] Ce [facility]ter Start: 08-07-2024 End: 08-07-2024 Dr. Kit Harris MD -Emergency Departm ent Work Phone: Start: 08-07-2024 End: 08-07-2024 Emergency department patient visit Dr. Brian Zimmerman MD -Emergency Department Work Phone: Start: 08-05-2024 ambulatory Edmundo Quevedo Facility:[facility] Start: 08-02-2024 End: 08-02-2024 Dr. Hebert Saavedra MD -Emergency Departmen t Work Phone: Start: 08-02-2024 End: 08-02-2024 Emergency department patient visit Cristy GONZALEZ Work Phone: -Emergency Department Work Phone: Start: 08-01-2024 Non-patient / Non-visit Dr. Isha Zurita MD -[facility] Work Phone: Start: 08-01-2024 Dr. Isha Zurita MD - [facility] Work Phone: Start: 07-31-2024 Non-patient / Non-visit Dr. Miller Blank MD -[facility] Work Phone: Start: 07-31-2024 Dr. Miller Blank [facility] Work Phone: Start: 07-30-2024 Non-patient / Non-visit Dr. Miller Blank MD -[facility] Work Phone: Start: 07-30-2024 Dr. Miller Blank MD -[facility] Work Phone: Start: 07-29-2024 End: 08-01-2024 Evaluation and management of inpatient Dr. Basilio Dill DO -Progressive Care Unit Work Phone: Start: 07-29-2024 End: 08-01-2024 Dr. Basilio Dill DO -Progressive Care Un it Work Phone: Start: 07-29-2024 End: 07-29-2024 [facility] Start: 07-29-2024 End: 07-29-2024 Patient encounter procedure [facility] Start: 07-26-2024 Non-patient / Non-visit Dr. Luca Nayak MD -[facility] Start: 07-25-2024 End: 07-27-[address] Luca Nayak MD -[facility] Work Phone: Start: 07-25-2024 End: 07-27-2024 Dr. Luca Nayak MD -[facility] Work Phone: Start: 07-25-2024 End: 07-27-2024 ambulatory [facility] Facility:[facility] Start: 07-11-2024 End: 07-11-2024 ambulatory Cristy GONZALEZ Work Phone: [facility] Work Phone: Start: 07-11-2024 End: 07-11-[address] [facility] [place] Work [place]: Start: 07-11-2024 End: 07-11-2024 Dr. Brian Zimmerman MD -Laboratory [facility] Work Phone: Start: 07-11-2024 End: 07-11-2024 ambulatory Brian Zimmerman Facility:[facility] Start: 06-27-2024 ambulatory Luca Nayak Facility:[facility] Start: 06-27-2024 Non-patient / Non-visit Dr. Luca Nayak MD -[facility] Start: 06-27-2024 Dr. Luca Nayak MD -[facility] Start: 06-27-2024 End: 06-27-2024 ambulatory Cristy Bearden PA Work Phone: [facility] Work Phone: Start: 06-27-2024 End: 06-27-[address] Luca Nayak MD -[facility] Work Phone: Start: 06-27-2024 End: 06-27-2024 Dr. Luca Nayak MD -[facility] Work Phone: Start: 06-22-[address] Juliana Shaw MD -Cardiovascular Services Work Phone: Start: 06-22-2024 ambulatory Juliana Shaw Facility:[facility] Start: 06-22-2024 Dr. Juliana Shaw MD -[facility] Work Phone: Start: 06-12-2024 Non-patient / Non-visit Dr. Juliana Shaw MD -[facility] Work Phone: Start: 06-12-2024 Dr. Juliana Shaw MD -[facility] Work Phone: Start: 06-11-2024 Non-patient / Non-visit Dr. Juliana Shaw MD [facility] Work Phone: Start: 06-11-2024 Dr. Juliana Shaw MD [facility] Work Phone: Start: 06-10-2024 Non-patient / Non-visit Dr. Juliana Shaw MD [facility] Work Phone: Start: 06-10-2024 Dr. Juliana Shaw MD [facility] Work Phone: Start: 06-09-2024 ambulatory Brian Mccoy y:[facility] Start: 06-09-2024 End: 06-12-2024 Evaluation and management of inpatient Dr. Juliana Shaw MD -Progressive Care Unit Work Phone: Start: 06-09-2024 End: 06-12-2024 Dr. Juliana Shaw MD -[facility] it Work Phone: Start: 06-03-2024 End: 06-03-[address] Edmundo Quevedo MD -[facility] Work Phone: Start: 06-03-2024 End: 06-03-2024 Dr. Edmundo Quevedo MD -[facility] Work Phone: Start: 06-03-2024 End: 06-03-2024 ambulatory Brian Zimmerman Facility:[facility] Start: 05-30-2024 ambulatory Luca Nayak Facility:[facility] Start: 05-30-2024 Non-patient / Non-visit Dr. Luca Nayak MD -[facility] Start: 05-30-2024 Dr. Luca Nayak MD [facility] Start: 05-30-[address] Luca machado MD -[facility] Work Phone: Start: 05-02-2024 End: 05-27-2024 Discharged Recurring Kemi Rubio LABEL PRINTER-C -[facility] Work Phone: Start: 05-02-2024 End: 05-27-2024 ambulatory [facility] Facility:[facility] Start: 05-02-2024 Non-patient / Non-visit Dr. Luca Nayak MD -[facility] Start: 04-04-2024 ambulatory Luca Nayak Facility:[facility] Start: 04-04-2024 Non-patient / Non-visit Dr. Luca Nayak MD -[facility] Start: 04-04-2024 End: 04-29-2024 Discharged Recurring Kemi Rubio LABEL PRINTER-C -[facility] Work Phone: Start: 04-04-2024 End: 04-29-2024 ambulatory [facility] Facility:[facility] Start: 03-31-2024 End: 03-31-2024 Telephone encounter Rikki Casas MD Work Phone: [facility] Comment on above: Orders Start: 03-30-2024 ambulatory Brian Zimmerman Facilit y:[facility] Start: 03-24-2024 End: 03-24-2024 Discharged Recurring Kemi Rubio LABEL PRINTER-C -[facility] Start: 03-24-2024 End: 03-24-2024 ambulatory Kemi Rubio LABEL PRINTER Facility:[facility] Start: 03-21-2024 ambulatory Luca Nayak Facility:[facility] Start: 03-21-2024 Non-patient / Non-visit Dr. Luca Nayak MD -[facility] Start: 03-21-2024 End: 03-29-2024 Discharged Recurring Kemi Rubio LABEL PRINTER-C -[facility] Work Phone: Start: 03-21-2024 End: 03-29-2024 ambulatory Brian Zimmerman Facility:[facility] Start: 02-24-2024 ambulatory Luca Nayak [facility] Start: 02-24-2024 Non-patient / Non-visit Kemi Rubio LABEL PRINTER-C -[facility] Start: 02-24-2024 End: 02-27-[address] Luca Nayak MD -Wound Healing [facility] Work Phone: Start: 02-24-2024 End: 02-27-2024 ambulatory Luca Nayak Facility:[facility] Start: 01-27-2024 End: 01-28-2024 [facility] Start: 01-25-2024 End: 01-26-2024 Telephone encounter Rikki Casas MD Work Phone: [facility] Comment on above: Other Start: 01-25-2024 End: 01-25-2024 Emergency department patient visit Brian Zimmerman Facility:[facility] Start: 01-22-2024 End: 01-22-2024 Office outpatient visit 15 minutes Rikki Casas MD Work Phone: [facility] Comment on above: Urinary retention (P rimary Dx) Start: 01-22-2024 End: 01-22-2024 ambulatory [facility] Start: 01-13-2024 ambulatory Luca Nayak Facility:[facility] Start: 01-13-2024 End: 01-13-2024 Emergency department patient visit Bhavesh Harrell Facility:[facility] Start: 12-25-2023 End: 12-25-2023 Emergency department patient visit Matthias Castillo Facility:[facility] Start: 12-23-2023 ambulatory Luca Nayak Facility:[facility] Start: 12-23-2023 End: 12-28-2023 [facility] Start: 12-18-2023 End: 12-28-2023 ambulatory Emerald Slater RN [facility] Clinical Communication Start: 12-18-2023 End: 12-28-2023 Patient encounter procedure Emerald Slater RN [facility] Clinical Communication Start: 12-11-2023 End: 12-11-2023 ambulatory [facility] Start: 12-11-2023 End: 12-11-2023 Subsequent hospital visit by physician Rikki Casas MD Work Phone: [facility] [place] Start: 12-10-2023 End: 12-10-2023 Telephone encounter Rikki Casas MD Work Phone: [facility] [place] Start: 12-07-2023 ambulatory Luca Nayak Facility[facility] Start: 12-07-2023 End: 12-07-2023 Telephone encounter Rikki Casas MD Work Phone: [facility] Start: 11-23-2023 End: 11-28-2023 ambulatory Luca Nayak Facility:[facility] Start: 11-18-2023 End: 11-18-2023 ambulatory Brian Zimmerman Facility:[facility] Start: 11-04-2023 ambulatory Kemi Rubio NP Fa cility:[facility] Start: 10-23-2023 End: 10-23-2023 ambulatory [facility] Start: 10-12-2023 End: 10-28-2023 ambulatory Cristy Bearden Facility:[facility] Start: 08-19-2023 Telephone encounter Zackery Carmona MD Work Phone: [facility] Start: 07-22-2023 Non-patient / Non-visit LABEL PRINTER-C Kemi Ramiro LABEL PRINTER Work Phone: [facility] Start: 07-22-2023 End: 07-28-2023 ambulatory LABEL PRINTER-C Kemi E Ramiro LABEL PRINTER Work Phone: [facility] Work Phone: Start: 07-22-2023 End: 07-28-2023 Discharged Recurring LABEL PRINTER-C Kemi Ramiro LABEL PRINTER [facility] Work Phone: Start: 07-02-2023 End: 07-02-2023 Patient encounter procedure LABEL PRINTER-C Kemi Ramiro LABEL PRINTER Work Phone: [facility] Work Phone: Start: 06-29-2023 Non-patient / Non-visit LABEL PRINTER-C Kemi Ramiro LABEL PRINTER Work Phone: [facility] Start: 06-15-2023 Non-patient / Non-visit LABEL PRINTER-C Kemi Ramiro LABEL PRINTER Work Phone: [facility] Start: 06-15-2023 End: 06-28-2023 ambulatory LABEL PRINTER-C Kemi E Ramiro LABEL PRINTER Work Phone: [facility] Work Phone: Start: 06-15-2023 End: 06-28-2023 Discharged Recurring LABEL PRINTER-C Kemi Ramiro LABEL PRINTER [facility] Work Phone: Start: 06-14-2023 Telephone encounter Brian fritz MD Work Phone: [facility] Clinical Communication Comment on above: Other Start: 06-01-2023 Non-patient / Non-visit LABEL PRINTER-C Kemi Ramiro LABEL PRINTER Work Phone: [facility] Start: 05-18-2023 Non-patient / Non-visit LABEL PRINTER-C Kemi Ramiro LABEL PRINTER Work Phone: [facility] Start: 05-18-2023 End: 05-28-2023 ambulatory LABEL PRINTER-C Kemi E Ramiro LABEL PRINTER Work Phone: [facility] Work Phone: Start: 05-18-2023 End: 05-28-2023 Discharged Recurring LABEL PRINTER-C Kemi Ramiro LABEL PRINTER Work Phone: [facility] Work Phone: Start: 05-04-2023 Non-patient / Non-visit LABEL PRINTER-C Kemi Ramiro LABEL PRINTER Work Phone: [facility] Start: 04-21-2023 Non-patient / Non-visit LABEL PRINTER-C Kemi Ramiro LABEL PRINTER Work Phone: [facility] Start: 04-21-2023 End: 04-29-2023 ambulatory LABEL PRINTER-C Kemi E Ramiro LABEL PRINTER Work Phone: [facility] Work Phone: Start: 04-21-2023 End: 04-29-2023 Discharged Recurring LABEL PRINTER-C Kemi Ramiro LABEL PRINTER Work Phone: [facility] Work Phone: Start: 04-06-2023 Non-patient / Non-visit LABEL PRINTER-C Kemi Ramiro LABEL PRINTER Work Phone: [facility] Start: 03-16-2023 Non-patient / Non-visit LABEL PRINTER-C Kemi Ramiro LABEL PRINTER [facility] Start: 03-16-2023 End: 03-29-2023 ambulatory LABEL PRINTER-C Kemi E Ramiro LABEL PRINTER Work Phone: [facility] Work Phone: Start: 03-16-2023 End: 03-29-2023 Discharged Recurring LABEL PRINTER-C Kemi Ramiro LABEL PRINTER [facility] Work Phone: Start: 03-06-2023 ambulatory Adilene Laguna C linical Communication Start: 03-06-2023 [facility] encounter [facility] Start: 03-02-2023 Non-patient / Non-visit LABEL PRINTER-C Kemi Ramiro LABEL PRINTER Work Phone: [facility] Start: 02-16-2023 Non-patient / Non-visit LABEL PRINTER-C Kemi Workmanell LABEL PRINTER Work Phone: [facility] Start: 02-16-2023 End: 02-16-2023 ambulatory LABEL PRINTER-C Kemi Workmanell LABEL PRINTER Work Phone: [facility] Work Phone: Start: 02-16-2023 End: 02-16-2023 Patient encounter procedure LABEL PRINTER-C Kemi Ramiro LABEL PRINTER Work Phone: [facility] Work Phone: Start: 02-16-2023 End: 02-26-2023 ambulatory LABEL PRINTER-C Kemi Rubio LABEL PRINTER Work Phone: [facility] Work Phone: Start: 02-16-2023 End: 02-26-2023 Discharged Recurring LABEL PRINTER-C Kemi Ramiro LABEL PRINTER Work Phone: [facility] Work Phone: Start: 02-16-2023 Registered Recurring LABEL PRINTER-C Johnc colten Rubio LABEL PRINTER [facility] Work Phone: Start: 01-19-2023 Non-patient / Non-visit LABEL PRINTER-C Kemibehzad EarlyRamiro LABEL PRINTER Work Phone: [facility] Start: 01-19-2023 End: 01-27-2023 ambulatory LABEL PRINTER-C Kemi E Ramiro LABEL PRINTER Work Phone: [facility] Work Phone: Start: 01-19-2023 End: 01-27-2023 Discharged Recurring LABEL PRINTER-C Kemibehzad EarlyRamiro LABEL PRINTER [facility] Work Phone: Start: 12-29-2022 Non-patient / Non-visit LABEL PRINTER-C Kemi Ramiro LABEL PRINTER Work Phone: [facility] Start: 12-19-2022 End: 12-19-2022 Patient encounter procedure LABEL PRINTER-C Kemi Earlyndell LABEL PRINTER Work Phone: [facility] Work Phone: Start: 12-08-2022 Non-patient / Non-visit LABEL PRINTER-C Kemibehzad EarlyRamiro LABEL PRINTER Work Phone: [facility] Start: 12-08-2022 End: 12-27-2022 ambulatory LABEL PRINTER-C Kemi Kia EarlyRamiro LABEL PRINTER Work Phone: [facility] Work Phone: Start: 12-08-2022 End: 12-27-2022 Discharged Recurring LABEL PRINTER-C Kemi Earlyndell LABEL PRINTER [facility] Work Phone: Start: 11-24-2022 Non-patient / Non-visit LABEL PRINTER-C Kemi Ramiro LABEL PRINTER Work Phone: [facility] Start: 11-23-2022 Non-patient / Non-visit LABEL PRINTER-C Kemi Ramiro LABEL PRINTER [facility] Start: 11-22-2022 Non-patient / Non-visit LABEL PRINTER-C Kemi Workmanell LABEL PRINTER Work Phone: [facility] Start: 11-21-2022 End: 11-24-2022 Evaluation and management of inpatient LABEL PRINTER-C Kemi Earlyndell LABEL PRINTER [facility] Work Phone: Start: 11-21-2022 Non-patient / Non-visit LABEL PRINTER-C Kemi Earlyndell LABEL PRINTER Work Phone: [facility] Start: 11-10-2022 Non-patient / Non-visit LABEL PRINTER-C Kemi Earlyndell LABEL PRINTER Work Phone: [facility] Start: 11-10-2022 End: 11-27-2022 ambulatory LABEL PRINTER-C Kemi Earlyndell LABEL PRINTER Work Phone: [facility] Work Phone: Start: 11-10-2022 End: 11-27-2022 Discharged Recurring LABEL PRINTER-C Kemi Workmanell LABEL PRINTER [facility] [place] Work Phone: Start: 11-10-2022 Registered Recurring LABEL PRINTER-C Darryl Earlyndell LABEL PRINTER [facility] [place] Work Phone: Start: 10-20-2022 Non-patient / Non-visit PA Cristy Biedenharn Work Phone: [facility] Start: 10-20-2022 End: 10-27-2022 ambulatory PA Cristy Biedenharn Work Phone: [facility] Work Phone: Start: 10-20-2022 End: 10-27-2022 Discharged Recurring PA Cristy Biedenharn Work Phone: [facility] Work Phone: Start: 10-17-2022 End: 10-17-2022 Non-patient / Non-visit MARIO Rubio NP Work Phone: [facility] Work Phone: Start: 10-06-2022 Non-patient / Non-visit CARLOS Verma Work Phone: [facility] Start: 09-15-2022 Non-patient / Non-visit Dr. Brian Zimmerman Work Phone: [facility] Start: 09-15-2022 End: 09-26-[address] Brian Zimmerman Work Phone: [facility] Work Phone: Start: 09-15-2022 End: 09-26-[address] Brian Zimmerman Work Phone: [facility] Work Phone: Start: 09-05-2022 End: 09-05-[address] Brian Zimmerman Work Phone: [facility] Work Phone: Start: 09-01-2022 Non-patient / Non-visit Dr. Brian Zimmerman Work Phone: [facility] Start: 08-18-2022 Non-patient / Non-visit Dr. Brian Zimmerman Work Phone: [facility] Start: 08-18-2022 End: 08-27-[address] Brian Zimmerman Work Phone: [facility] Work Phone: Start: 08-18-2022 End: 08-27-[address] Brian Zimmerman Work Phone: [facility] Start: 07-28-2022 Non-patient / Non-visit Dr. Brian Zimmerman Work Phone: [facility] Start: 07-14-2022 Non-patient / Non-visit Dr. Brian Zimmerman Work Phone: [facility] Start: 07-14-2022 End: 07-27-[address] Brian Zimmerman Work Phone: [facility] Work Phone: Start: 07-14-2022 End: 07-27-[address] Brian Zimmerman Work Phone: [facility] Start: 06-30-2022 Non-patient / Non-visit Dr. Brian Zimmerman Work Phone: [facility] Start: 06-18-2022 Non-patient / Non-visit Dr. Brian Zimmerman Work Phone: [facility] Start: 06-18-2022 End: 06-18-2022 Admission to same day surgery center Dr. Brian Zimmerman Work Phone: [facility] Start: 06-18-2022 End: 06-18-[address] Brian Zimmerman Work Phone: [facility] Work Phone: Start: 06-09-2022 Non-patient / Non-visit Dr. Brian Zimmerman Work Phone: [facility] Start: 06-09-2022 End: 06-27-[address] Brian Zimmerman Work Phone: [facility] Work Phone: Start: 06-09-2022 End: 06-27-[address] Brian Zimmerman Work Phone: [facility] Start: 06-09-[address] Ritika Zimmerman Work Phone: [facility] Start: 05-27-2022 End: 05-27-[address] Brian Zimmerman Work Phone: [facility] Start: 05-26-2022 Non-patient / Non-visit Dr. Brian Zimmerman Work Phone: [facility] Start: 05-26-2022 End: 05-27-[address] Brian Zimmerman Work Phone: [facility] Work Phone: Start: 05-26-2022 End: 05-27-[address] Brian Zimmerman Work Phone: [facility] Start: 05-12-2022 Non-patient / Non-visit Dr. Brian Benites Phone: [facility] Start: 05-05-2022 Non-patient / Non-visit Dr. Brian Zimmerman Work Phone: [facility] Start: 05-02-2022 End: 05-02-2022 Emergency department patient visit Dr. Brian Zimmerman Work Phone: [facility] Start: 04-30-2022 Non-patient / Non-visit Dr. Brian Benites Phone: [facility] Start: 04-29-2022 Non-patient / Non-visit Dr. Brian Zimmerman Work Phone: [facility] Start: 04-29-2022 Non-patient / Non-visit Dr. Brian Zimmerman Work Phone: [facility] Start: 04-28-2022 End: 04-30-2022 Evaluation and management of inpatient Dr. Brian Benites Phone: [facility] 3 Start: 04-28-2022 End: 04-28-2022 Non-patient / Non-visit Dr. Brian Zimmerman Work Phone: [facility] Start: 04-25-2022 End: 04-29-[address] Brian Zimmerman Work Phone: [facility] Work Phone: Start: 04-25-2022 End: 04-29-[address] Brian Zimmerman Work Phone: [facility] Start: 04-25-2022 Non-patient / Non-visit Dr. Brian Zimmerman Work Phone: [facility] Start: 04-15-2022 Non-patient / Non-visit Dr. Brian Zimmerman Work Phone: [facility] Start: 04-10-2022 Non-patient / Non-visit Dr. Brian Zimmerman Work Phone: [facility] Start: 03-28-2022 Non-patient / Non-visit Dr. Brian Zimmerman Work Phone: [facility] Start: 03-28-2022 End: 03-29-[address] Brian Zimmerman Work Phone: [facility] Work Phone: Start: 03-28-2022 End: 03-29-[address] Brian Zimmerman Work Phone: [facility] Start: 03-14-2022 Non-patient / Non-visit Dr. Brian Zimmerman Work Phone: [facility] Start: 03-07-2022 Non-patient / Non-visit Dr. Brian Zimmerman Work Phone: [facility] Start: 02-28-2022 Non-patient / Non-visit Dr. Brian Zimmerman Work Phone: [facility] Start: 02-08-2022 End: 02-08-2022 Emergency department patient visit [facility] Start: 06-22-2018 End: 06-22-2018 Patient encounter procedure PRAVIN PEDRAZA Facility:[facility] Procedures Date Procedure Procedure Detail Performing Clinician Start: 09-28-2024 Urnls dip stick/tabl et reagent auto microscopy Dr. Brian Zimmerman MD Start: 09-28-[address] Ritika Zimmerman MD Start: 08-07-2024 Urine microscopy: red cells Dr. Brian Zimmerman MD Start: 08-07-2024 Urnls dip stick/tabl et reagent auto microscopy Dr. Brian Zimmerman MD Start: 08-07-2024 CT of head without contrast Dr. Brian Zimmerman MD Start: 08-07-2024 Plain chest X-ray Dr. Leopoldo Zimmerman MD Start: 08-07-2024 Blood count smear mc rscp w/mnl difrntl wbc count Dr. Brian Zimmerman MD Start: 08-07-[address] Brian Zimmerman MD Start: 08-07-2024 Mean corpuscular hem oglobin concentration determination Dr. Brian Zimmerman MD Start: 08-07-2024 Nucleated red blood cell count procedure Dr. Brian Zimmerman MD Start: 08-07-2024 Platelet mean volume determination Dr. Brian Zimmerman MD Start: 08-02-2024 Urine microscopy: red cells Dr. Brian Zimmerman MD Start: 08-02-2024 Urnls dip stick/tabl et reagent auto microscopy Dr. Brian Zimmerman MD Start: 08-02-[address] Brian Zimmerman MD Start: 08-02-2024 Venous oxygen satura tion measurement Dr. Brian Zimmerman MD Start: 08-02-2024 X-ray of chest, PA a nd lateral views Cristy GONZALEZ Work Phone: Start: 08-02-2024 Blood count smear mc rscp w/mnl difrntl wbc count Dr. Brian Zimmerman MD Start: 08-02-[address] Brian Zimmerman MD Start: 08-02-2024 Mean corpuscular hem oglobin concentration determination Dr. Brian Zimmerman MD Start: 08-02-2024 Nucleated red blood cell count procedure Dr. Brian Zimmerman MD Start: 08-02-2024 Platelet mean volume determination Dr. Brian Zimmerman MD Start: 08-01-2024 Complete ultrasound of kidneys and bladder Cristy GONZALEZ Work Phone: Start: 08-01-2024 Blood count smear mc rscp w/mnl difrntl wbc count Dr. Brian Zimmerman MD Start: 08-01-[address] Brian Zimmerman MD Start: 08-01-2024 Mean corpuscular hem oglobin concentration determination Dr. Brian Zimmerman MD Start: 08-01-2024 Nucleated red blood cell count procedure Dr. Brian Zimmerman MD Start: 08-01-2024 Platelet mean volume determination Dr. Brian Zimmerman MD Start: 07-31-2024 Serum inorganic phos phate measurement Dr. Brian Zimmerman MD Start: 07-30-[address] Dav Zimmerman MD Start: 07-29-2024 X-ray of chest, PA a nd lateral views Cristy GONZALEZ Work Phone: Start: 07-29-2024 Calculation of international normalized ratio Dr. Brian Zimmerman MD Start: 07-29-2024 Urine microscopy: red cells Dr. Brian Zimmerman MD Start: 07-29-2024 Urnls dip stick/tabl et reagent auto microscopy Dr. Brian Zimmerman MD Start: 07-29-[address] Ritika Zimmerman MD Start: 07-29-2024 SARS-CoV-2, Influenz a & RSV (PCR) Cristy GONZALEZ Work Phone: Start: 07-29-2024 Urine culture Cristy GONZALEZ Work Phone: Start: 07-29-2024 Dr. Anthony Zimmerman MD Start: 07-11-2024 Blood count smear mc rscp w/mnl difrntl wbc count Dr. Brian Zimmerman MD Start: 07-11-2024 Mean corpuscular hem oglobin concentration determination Dr. Brian Zimmerman MD Start: 07-11-2024 Nucleated red blood cell count procedure Dr. Brian Zimmerman MD Start: 07-11-2024 Platelet mean volume determination Dr. Brian Zimmerman MD Start: 07-11-2024 Prostate specific an tigen measurement Dr. Brian Zimmerman MD Comment on above: This test was [...] 07-11-2024 Total cholesterol:HD L ratio measurement Dr. Brian Zimmerman MD Start: 06-12-2024 Blood count smear mc rscp w/mnl difrntl wbc count Dr. Brian Zimmerman MD Start: 06-12-[address] Brian Zimmerman MD Start: 06-12-2024 Mean corpuscular hem oglobin concentration determination Dr. Brian Zimmerman MD Start: 06-12-2024 Nucleated red blood cell count procedure Dr. Brian Zimmerman MD Start: 06-12-2024 Platelet mean volume determination Dr. Brian Zimmerman MD Start: 06-09-2024 Blood culture Cristy GONZALEZ Work Phone: Start: 06-09-2024 SARS-CoV-2, Influenz a & RSV (PCR) Cristy GONZALEZ Work Phone: Start: 06-09-2024 Urine culture Cristy GONZALEZ Work Phone: Start: 06-09-2024 Dr. Anthony Zimmerman MD Start: 06-09-[address] Dav Zimmerman MD Start: 06-09-2024 Urine microscopy: red cells Dr. Brian Zimmerman MD Start: 06-09-2024 Urnls dip stick/tabl et reagent auto microscopy Dr. Brian Zimmerman MD Start: 06-09-2024 X-ray of chest, PA a nd lateral views Cristy GONZALEZ Work Phone: Start: 06-03-2024 X-ray of cervical spine Cristy GONZALEZ Work Phone: Start: 04-06-2023 Anaerobic microbial culture [employer]EL PRINTER[employer] Kemi Rubio LABEL PRINTER Work Phone: Start: 04-06-2023 Investigation of transfusion reaction [employer] Kemi Rubio LABEL PRINTER Work Phone: Start: 04-06-2023 Microbial culture, routine [employer] Kemi Rubio LABEL PRINTER Work Phone: Start: 02-16-2023 Radiography of thora cic spine [employer] PR[employer] Kemi Rubio LABEL PRINTER Work Phone: Start: 11-21-2022 Construction of end colostomy [employer] PR[employer] Kemi Rubio LABEL PRINTER Work Phone: Start: 11-10-2022 Anaerobic microbial culture LABEL PRINTER-C Kemi Rubio LABEL PRINTER Work Phone: Start: 11-10-2022 Investigation of transfusion reaction [employer] PRINTER[employer] Kemi Rubio LABEL PRINTER Work Phone: Start: 11-10-2022 Microbial culture, routine [employer] PRINTER[employer] Kemi Rubio LABEL PRINTER Work Phone: Start: 07-14-[address] Brian Zimmerman Work Phone: Start: 07-14-2022 Investigation of transfusion reaction Dr. Brian Zimmerman Work Phone: Start: 07-14-2022 Microbial culture, routine Dr. Brian Zimmerman Work Phone: Start: 06-18-[address] Anthony Zimmerman Work Phone: Start: 05-02-2022 CT of pelvis with contrast Dr. Brian Zimmerman Work Phone: Start: 05-02-2022 CT cervical spine wi thout contrast Dr. Brian Zimmerman Work Phone: Start: 05-02-2022 CT of head without contrast Dr. Brian Zimmerman Work Phone: Start: 04-28-[address] Brian Zimmerman Work Phone: Start: 02-08-2022 Plain chest X-ray Start: 02-08-2022 Computed tomography of abdomen and pelvis with intravenous contrast Anaerobic microbial culture Dr. Brian Zimmerman Work Phone: Anaerobic microbial culture Dr. Brian Zimmerman Work Phone: Anaerobic microbial culture Dr. Brian Zimmerman Work Phone: Anaerobic microbial culture Dr. Brian Zimmerman Work Phone: Clostridium difficil e detection Dr. Brian Zimmerman Work Phone: Fungus stain method Dr. Amol Zimmerman Work Phone: H/O: colostomy S/P colostomy [employer]EL PRINTER[employer] Kemi Rubio LABEL PRINTER Work Phone: Comment on above: Patient is [...] plastic surgery. Investigation of transfusion reaction Dr. Brian Zimmerman Work Phone: Investigation of transfusion reaction Dr. Brian Zimmerman Work Phone: Investigation of transfusion reaction Dr. Brian Zimmerman Work Phone: Investigation of transfusion reaction Dr. Brian Zimmerman Work Phone: Microbial culture, routine D surendra Zimmerman Work Phone: Microbial culture, routine D surendra Zimmerman Work Phone: Microbial culture, routine D surendra Zimmerman Work Phone: Microbial culture, routine D surendra Zimmerman Work Phone: Microbial culture, routine D surendra Zimmerman Work Phone: Mycology culture Dr. Brian Zimmerman Work Phone: Plan of Treatment Date Care Activity Detail Author Start: 11-28-2024 Influenza vaccination [facility] Start: 08-07-2024 [facility] Start: 08-07-2024 [facility] Start: 08-02-2024 [facility] Start: 08-01-2024 Patient discharge [facility] Start: 08-01-2024 Wound care [facility] Start: 07-31-2024 [facility] Start: 07-30-2024 Referral to service [facility] Start: 07-30-2024 End: 07-30-2024 [facility] Start: 07-30-2024 Care regimes management [facility] Start: 07-30-2024 Notification of physician [facility] Start: 07-30-2024 Consultation for treatment [facility] Start: 07-29-2024 Following clinical pathway protocol [facility] Start: 07-29-2024 Aspiration precautions [facility] Start: 07-29-2024 Assessment of risk of venous thromboembolism [facility] Start: 07-29-2024 Consultation [facility] Start: 07-29-2024 Fall prevention [facility] Start: 07-29-2024 Inhalation therapy procedure [facility] Start: 07-29-2024 Insertion of catheter into peripheral vein [facility] Start: 07-29-2024 Measuring intake and output [facility] Start: 07-29-2024 Providing care according to standard [facility] Start: 07-29-2024 Provision of activity privileges [facility] Start: 07-29-2024 Referral to occupational therapist [facility] Start: 07-29-2024 Referral to service [facility] Start: 07-29-2024 [facility] Start: 07-29-2024 Admission procedure [facility] Start: 07-29-2024 [facility] Start: 07-29-2024 Blood culture Blood Culture [facility] Start: 07-29-2024 Patient referral to dietitian [facility] Start: 06-12-2024 Patient discharge [facility] Start: 06-10-2024 Referral to service [facility] Start: 06-10-2024 Referral to service [facility] Start: 06-09-2024 Bacteria identified in Blood by Culture Blood Culture [facility] Start: 06-09-2024 Bacteria identified in Urine by Culture Urine Culture [facility] Start: 06-09-2024 Blood culture Blood Culture [facility] Start: 06-09-2024 Wound care [facility] Start: 06-09-2024 Assessment of risk of venous thromboembolism [facility] Start: 06-09-2024 Consultation for treatment [facility] Start: 06-09-2024 Inhalation therapy procedure [facility] Start: 06-09-2024 Insertion of catheter into peripheral vein [facility] Start: 06-09-2024 Measuring intake and output [facility] Start: 06-09-2024 Oxygen therapy [facility] Start: 06-09-2024 Providing care according to standard [facility] Start: 06-09-2024 Provision of activity privileges [facility] Start: 06-09-2024 Referral to occupational therapist [facility] Start: 06-09-2024 Referral to service [facility] Start: 06-09-2024 [facility] Start: 06-09-2024 Verification routine [facility] Start: 06-09-2024 Admission procedure [facility] Start: 06-09-2024 Hospital admission, emergency, from emergency room, medical nature [facility] Start: 06-09-2024 End: 06-09-2024 [facility] Start: 01-22-2024 End: 01-22-2024 Patient encounter procedure [facility] Start: 12-11-2023 End: 12-11-2023 Admission to same day surgery center 12/11/2023 1:30 PM EDT - 12/11/2023 2:30 PM EDT Surgery [facility] [place] [address] [place] [phone] Rikki Casas MD [address] [place] [id number] CYSTOSCOPY [61421 (CPT )] [facility] [place] Comment on above: CYSTOSCOPY [34959 (CPT )] Start: 12-11-2023 End: 12-11-2023 Anesthesia consultation 12/11/2023 1:30 PM EDT Anesthesia Event [facility] [place] [address] [place] [address] Edy Timmons, TRANSFORMER ASSEMBLY SUPERVISOR - [address] [address] [facility] Start: 12-11-2023 Subsequent hospital visit by physician 12/11/2023 1:30 PM EDT Hospital Encounter [facility] [address] [place] [phone] Rikki Casas MD [address] [place] [address] [facility] Start: 12-11-2023 End: 12-11-2023 Cystostomy cystotomy w/drainage [facility] Start: 12-11-2023 End: 12-11-2023 Cystourethroscopy [facility] Start: 11-29-2023 COVID-19 Vaccine ( season) COVID-19 Vaccine ( season) [facility] Start: 11-29-2023 COVID-19 Vaccine ( season) COVID-19 Vaccine ( season) [facility] Start: 11-29-2023 Influenza vaccination Influenza Vaccine (#1) [facility] Start: 10-23-2023 End: 10-23-2023 Patient encounter procedure 10/23/2023 10:30 AM EDT Office Visit [facility] [address] [place] [address] Rikki Casas MD [address] [place] [address] [facility] Start: 10-12-2023 End: 10-12-2023 Patient encounter procedure 10/12/2023 2:00 PM EDT Office Visit [facility] [address] [place] [phone] Zackery Carmona MD [address] [place], [place] [id number] [facility] Start: 11-28-2022 COVID-19 Vaccine ( season) COVID-19 Vaccine () [facility] Start: 11-25-2022 Wound care [facility] Start: 11-24-2022 Patient discharge [facility] Start: 11-23-2022 Removal of urinary catheter [facility] Start: 11-22-2022 Referral to service [facility] Start: 11-22-2022 [facility] Start: 11-22-2022 Consultation for treatment [facility] Start: 11-21-2022 Admission procedure [facility] Start: 11-21-2022 Application of intermittent pneumatic compression device [facility] Start: 11-21-2022 Following clinical pathway protocol [facility] Start: 11-21-2022 Measuring intake and output [facility] Start: 11-21-2022 Elevation of head of bed [facility] Start: 11-21-2022 Admission procedure [facility] Start: 11-21-2022 [facility] Start: 06-18-2022 Colonoscopy w/biopsy single/multiple COLONOSCOPY AND BIOPSY [facility] Start: 06-18-2022 Patient discharge [facility] Start: 05-02-2022 [facility] Start: 04-30-2022 Patient discharge [facility] Start: 04-29-2022 Wound care [facility] Start: 04-29-2022 Application of intermittent pneumatic compression device [facility] Start: 04-29-2022 Consultation for treatment [facility] Start: 04-29-2022 [facility] Start: 04-28-2022 Following clinical pathway protocol [facility] Start: 04-28-2022 Referral to general surgeon [facility] Start: 04-28-2022 Referral to service [facility] Start: 04-28-2022 Admission procedure [facility] Start: 04-28-2022 Assessment of risk of venous thromboembolism [facility] Start: 04-28-2022 Bedrest [facility] Start: 04-28-2022 Incentive spirometry [facility] Start: 04-28-2022 Measuring intake and output [facility] Start: 04-28-2022 Taking patient vital signs [facility] Start: 04-28-2022 Verification routine [facility] Start: 04-28-2022 Anesthesia on bony pelvis ANESTH PELVIS SURGERY [facility] Start: 04-28-2022 Exc ischial pr ulcer w/ostc musc/myoq flap/skin REMOVE HIP PRESSURE SORE [facility] Start: 04-28-2022 Patient referral to dietitian [facility] Start: 02-08-2022 Referral for further care [facility] Start: 2016 RSV Immunization aged 60 or older (1 - 1-dose 60+ series) RSV Immunization aged 60 or older (1 - 1-dose 60+ series) [facility] Start: 2016 RSV Immunization for Adults (1 - Risk 60-74 years 1-dose series) RSV Immunization for Adults (1 - Risk 60-74 years 1-dose series) [facility] Start: 03-17-2015 Pneumococcal Vaccine: 50+ Years (2 of 2 - PPSV23) Pneumococcal Vaccine: 50+ Years (2 of 2 - PPSV23) [facility] Start: 03-17-2015 Pneumococcal Vaccine: 65+ Years (2 of 2 - PPSV23 or PCV20) Pneumococcal Vaccine: 65+ Years (2 of 2 - PPSV23 or PCV20) [facility] Start: 2006 Zoster Vaccines (1 of 2) Zoster Vaccines (1 of 2) [facility] Start: 08-17-1975 DTaP/Tdap/Td Vaccines (1 - Tdap) DTaP/Tdap/Td Vaccines (1 - Tdap) [facility] Start: 1974 Diabetes mellitus screening Diabetes Screening [facility] Start: 1974 Hepatitis C screening Hepatitis C Screening [facility] Start: 1968 Depression Screening Depression Screening [facility] Start: 1956 Lipid panel Lipid Panel [facility] Start: 1956 Screening for malignant neoplasm of colon [facility] Start: 1956 Thyroid stimulating hormone measurement TSH Level [facility] Anaerobic Culture Anaerobic Culture [facility] Anaerobic microbial culture Anaerobic Cul ture [facility] Bacteria identified in Unspecified specimen by Anaerobe culture [facility] Cardiac event recording [facility] Electrocardiographic procedure [facility] Microbial culture, routine Wound Culture [facility] Microbial culture, routine Wound Culture [facility] MR Thoracic spine [facility] Patient Education [facility] Work Phone: Patient referral [facility] Work Phone: Urine culture [facility] Immunizations Immunization Date Immunization Notes Care Provider Kandy moralez 12-23-2023 influenza virus vaccine, unspecified formulation Felipa aSntos RN [facility] 01-23-2023 influenza, injectabl e, quadrivalent, preservative free Cristy Bearden PA Work Phone: [facility] 01-23-2023 influenza virus vaccine, unspecified formulation Rikki Casas MD Work Phone: [facility] 01-31-2022 Influenza High-Dose Quadrivalent Cristy Bearden PA Work Phone: [facility] 01-31-2022 Influenza, high dose seasonal Cristy Bearden PA Work Phone: [facility] 01-31-2022 influenza, high dose seasonal, preservative-free [employer]EL PRINTER[employer] Kemi Ramiro LABEL PRINTER Work Phone: [facility] 01-22-2022 Covid Moderna Bivale nt Booster Cristy Bearden PA Work Phone: [facility] 09-11-2020 Covid (Moderna) LABEL PRINTER-C Kemi Ramiro LABEL PRINTER Work Phone: [facility] 08-14-2020 Covid (Moderna) LABEL PRINTER-C Kemi Ramiro LABEL PRINTER Work Phone: [facility] 04-07-2020 influenza, injectabl e, quadrivalent, preservative free LABEL PRINTER-C Kemi Ramiro LABEL PRINTER Work Phone: [facility] 04-07-2020 influenza, seasonal, injectable LABEL PRINTER-C Kemi Ramiro LABEL PRINTER Work Phone: [facility] 04-07-2020 Seasonal, quadrivale nt, recombinant, injectable influenza vaccine, preservative free Cristy Bearden PA Work Phone: [facility] 02-02-2019 influenza, injectabl e, quadrivalent, preservative free [employer]EL PRINTER-C Kemi Ramiro LABEL PRINTER Work Phone: [facility] 02-02-2019 influenza, seasonal, injectable LABEL PRINTER-C Kemi Ramiro LABEL PRINTER Work Phone: [facility] 04-04-2018 Influenza, injectabl e, Madin [place] Canine Kidney, preservative free, quadrivalent LABEL PRINTER-C Kemi Ramiro LABEL PRINTER Work Phone: [facility] Payers Date Payer Category Payer Private Health Insurance [id number] 2024 Private Health Insurance [id number] 2023 Self-pay [id number] 2023 Galileo polanco [facility] - [facility] RENETTA DECKER [id number] 2023 Unknown RENETTA DECKER [id number] 2023-Present [address] [place] [address] Commercial [id number] 2023 Unknown [id number] 1986 Medicare [id number]. [id number] 1986 Medicare [id number] 1956 Unknown [id number] 2.16.840.1.782422.3.579.2. 278 Unknown [id number] 2.16.840.1.837399.3.579.2. 462 Unknown [id number] 2.16.840.1.164109.3.579.2. 462 Unknown [id number] 2.16.840.1.360711.3.579.2. 462 Unknown [id number] 2.16.840.1.450501.3.579.2. 462 Unknown [id number] 2.16.840.1.074215.3.579.2. 462 Unknown [id number] 2.16.840.1.788224.3.579.2. 462 Unknown [id number] 2.16.840.1.403541.3.579.2. 462 Unknown [id number] 2.16.840.1.873468.3.579.2. 462 Unknown [id number] 2.16.840.1.253601.3.579.2. 462 Unknown [id number] 2.16.840.1.317641.3.579.2. 462 Unknown [id number] 2.16.840.1.076416.3.579.2. 462 Unknown [id number] 2.16.840.1.478614.3.579.2. 462 Unknown [id number] 2.16.840.1.475285.3.579.2. 462 Unknown [id number] 2.16.840.1.814043.3.579.2. 462 Unknown [id number] 2.16.840.1.075956.3.579.2. 462 Unknown [id number] 2.16.840.1.465596.3.579.2. 462 Unknown [id number] 2.16.840.1.187162.3.579.2. 462 Unknown [id number] 2.16.840.1.717094.3.579.2. 462 Unknown [id number] 2.16.840.1.237992.3.579.2. 462 Unknown [id number] 2.16.840.1.655903.3.579.2. 462 Unknown [id number] 2.16.840.1.080084.3.579.2. 462 Unknown [id number] 2.16.840.1.495924.3.579.2. 462 Unknown [id number] 2.16.840.1.848873.3.579.2. 462 Unknown [id number] 2.16.840.1.303264.3.579.2. 462 Unknown [id number] 2.16840.1.697776.3.579.2. 462 Unknown [id number] 2.16840.1.580913.3.579.2. 462 Unknown [id number] 2.16840.1.179284.3.579.2. 462 Unknown [id number] 2.16840.1.579375.3.579.2. 462 Unknown [id number] 2.16840.1.286358.3.579.2. 462 Unknown [id number] 2.16840.1.335003.3.579.2. 462 Unknown [id number] 2.16.840.1.007051.3.579.2. 462 Unknown [id number] 2.16.840.1.736902.3.579.2. 462 Unknown [id number] 2.16.840.1.213612.3.579.2. 462 Unknown [id number] 2.16.840.1.037538.3.579.2. 462 Unknown [id number] 2.16840.1.799604.3.579.2. 462 Unknown [id number] 2.16.840.1.521584.3.579.2. 462 Unknown [id number] 2.16.840.1.063406.3.579.2. 462 Unknown [id number] 2.16.840.1.348488.3.579.2. 462 Unknown [id number] 2.16.840.1.981608.3.579.2. 462 Unknown [id number] 2.840.1.790717.3.579.2. 462 Unknown [id number] 2.840.1.928288.3.579.2. 462 Unknown [id number] 2.840.1.662914.3.579.2. 462 Unknown [id number] 2.840.1.822785.3.579.2. 462 Unknown [id number] 2.840.1.973450.3.579.2. 462 Unknown [id number] 2.840.1.136383.3.579.2. 462 Unknown [id number] 2.840.1.091934.3.579.2. 462 Unknown [id number] 2.840.1.101416.3.579.2. 462 Unknown [id number] Unknown [id number] 462 Unknown [id number] 462 Unknown [id number] 462 Unknown [id number] 462 Unknown [id number] 462 Unknown [id number] 462 Social History Date Type Detail Facility Start: 02-08-2022 End: 07-02-2023 Tobacco smoking status NVIS Unknown if ever smoked [facility] Start: 1955 Sex Assigned At Male W [facility] Start: 1955 Sex Assigned At Not on file [facility] Gender identity Not on file [facility] Start: 10-28-2021 End: 08-02-2024 Sex Male (finding) [facility] Start: 06-09-2024 End: 08-07-2024 Tobacco smoking status NHIS Ex-smoker (finding) [facility] Medical Equipment Procedure Code Equipment Code Equipment Origin al Text Equipment Identifier Dates Laparoscopic creation of end colostomy [id number] 16 FDA Start: 11-21-2022 Laparoscopic creation of end colostomy ()[id number] 61 FDA Start: 11-21-2022 Goals Date Patient Goal Desired Activity /State Functional Status Date Assessment Result Facility 08-01-2024 Functional status Bedrest [facility] Work Phone: 06-12-2024 Functional status Bedrest [facility] Work Phone: 11-24-2022 [facility] Work Phone: 04-30-2022 Functional status Ambulates;Assist with U rinal [facility] Work Phone: 04-30-2022 Functional status Assistive Devices Wheel chair [facility] Work Phone: 04-29-2022 Functional [facility] Work Phone: Mental Status Date Assessment Result Facility 08-07-2024 Cognitive function Awake;Alert;Appropriat e [facility] Work Phone: 08-02-2024 Cognitive function Awake;Alert;A ppropriate;Follow s Commands [facility] Work Phone: 08-01-2024 Cognitive function Cooperative [facility] Work Phone: 08-01-2024 Cognitive function Voice/Name [facility] Work Phone: 06-12-2024 Cognitive function Voice/Name [facility] Work Phone: 11-24-2022 Cognitive function Voice/Name [facility] Work Phone: 06-18-2022 Cognitive function Voice/Name [facility] Work Phone: 06-18-2022 Cognitive function Patient Donato avila Person;Place;Time [facility] Work Phone: 04-30-2022 Cognitive function Voice/Name [facility] Work Phone: 04-29-2022 Cognitive function Level Of Cons ciousness Awake;Alert;Appropriate;Follow s Commands [facility] Work Phone: 04-29-2022 Cognitive function Voice/Name [facility] Work Phone: Clinical Notes 05-26-2020 to 09-27-2024 Telephone Encounter - Faith Dong RN - 09/27/2024 11:42 AM EDTTelephone Encounter - Faith Dong RN - 09/27/2024 11:42 AM EDTTelephone Encounter - Felipa Santos RN - 09/27/2024 9:57 AM EDT Note Date & Type Note Facility 09-27-2024 Telephone encounter Note Form atting of this note might be different from the original. Call placed to Jennifer to assess patient [...] letter can be sent. Fax number given: [phone] attention Jennifer. Jennifer asked if a PRN order for nurse visit could also be added so she can go back for the urine to send out. Will have this updated in the letter and sent via fax. [facility] 09-27-2024 Miscellaneous Notes Formattin g of this note might be different from the original. Call placed to Jennifer to assess patient [...] letter can be sent. Fax number given: [phone] attention Jennifer. Jennifer asked if a PRN order for nurse visit could also be added so she can go back for the urine to send out. Will have this updated in the letter and sent via fax. S: nurse Jennifer from [facility] spoke with [facility] nurse regarding urinary symptoms and needs order [...] or abdominal pain. R: Please call homecare nurseJennifer, at [phone] with verbal orders for catheter changes and for a UA, C&S, or with other recommendations. No further needs at this time. Reason for Disposition Bad or foul-smelling urine Protocols used: Urinary Lscyzxvv-VGQKC-TJ documented in this encounter [facility] 09-27-2024 Telephone encounter Note Form atting of this note might be different from the original. S: nurse Jennifer [facility] spoke with [facility] nurse regarding urinary symptoms and needs order [...] R: Please call homecare nurse, Jennifer, at [phone] with verbal orders for catheter changes and for a UA, C&S, or with other recommendations. No further needs at this time. Reason for Disposition Bad or foul-smelling urine Protocols used: Urinary Pzxhxant-UPUPU-NP [facility] 08-29-2024 Progress note Note Date/Time August 29, 2024 6:25p m [facility] [address] [place] [address] Progress Note - Wound Care 08/29/24 1820 MR#: [id number] Acct: [id number] Name: JORGE COVINGTON Rep #:[id number] : 1955 69 From: Luca Nayak MD PCP: Dr. Brian Zimmerman MD Status:RE G RCR Location: History of [...] Charges/Coding Visit Charges Office Visits / Consults: 40199 OV L3 Est 20min Physical Exam Narrative [...] Start: 08/29/24 14:49 Freq: Status: Active Protocol: DILCIA.NORIS Activity Type Activity Date Activity User E-sign Co-sign Detail Recorded Client Recorded Date Recorded By Document 08/29/24 14:52 [id number] 08/29/24 15:02 08/29/24 14:52 Height and Weight Body Mass [...] Recorded Date Recorded By Document 08/29/24 14:52 [id number] 08/29/24 15:02 08/29/24 14:52 Wound Center Nurse [...] Recorded Date Recorded By Document 08/29/24 15:30 ESTER [id number] 08/29/24 15:31 08/29/24 15:30 Wound Center Nurse 2 -Correct [...] Recorded Date Recorded By Document 08/29/24 15:40 [id number] 08/29/24 15:42 08/29/24 15:40 Wound Care Center Nurse 3 [...] been working on getting the [facility] records about his spine surgery and his prognosis. She states that she was told it was sent and received but nobody in the hospital system has been able to locate his chart. We will continue to try to get these records. Encouraged increased protein intake to help with wound healing. Waiting to hear from the [employer] to see if they can assist them [...] thorough discussion of options for potential reconstruction, Mr. and Mrs. Covnigton would like to defer reconstruction at this [...] health status and inability to pressure offload. 08/29/241824 <Electronically signed by Luca Nayak MD> Cosigner Signature (if applicable): CC: ~ Signed [facility] Work Phone: 1(522) 479-623205-11-2025 Discharge summary [facility] Medical Records Department [address] [place] [address] Emergency Department Summary 08/07/24 MR#: [id number] Acct: [id number] Name: JORGE COVINGTON Rep #:[id number] : 1955 68 From: Kit Harris MD PCP: Dr. Brian Zimmerman MD Status:RE G ER Location: ED HPI [...] pain, vomiting, fevers, headache, focal neurologic deficits. [facility] Medical History Fusion of spine, cervical region [...] of the head to evaluate for acute SUPERVISOR LENDING ACTIVITIES etiologies of his intermittent hallucinations. Ireviewed those [...] (Auto) 65.8 Lymph % (Auto) 17.9 L Kane % (Auto) 9.5 Eos % (Auto) 4.2 [...] Clarity Clear Urine pH 6.5 Ur Specific [place] 1.010 Urine Protein 15 H Urine Glucose [...] 18:30 IMPRESSION: No Acute Findings. Reading Location: [facility] Brain CT 08/07/24 18:31 IMPRESSION: No acute intracranial abnormality. Chronic microvascular ischemic and involutional changes. Other chronic findings as described above. [facility] Rhythm Strip Rhythm Strip: Sinus Rhythm Rate: [...] 40 mg PO DAILY Primary Care Provider: Brian Zimmerman Referrals: Brian Zimmerman MD [Primary Care Provider] - Keep Braxton appointment Print Language: Latvian Disposition Disposition: Home, Self Care What to do if you have Problems For any increased pain, shortness of breath, bleeding, nausea or vomiting, chestpain, or any unexpected problems, contact your Primary Care Provider. Call [facility] ([phone]) or report tothe closest Emergency Room. Call 911 if necessary. 08/07/242058 Cosigner Signature (if applicable): CC: Dr. Brian Zimmerman MD ~ Signed [facility]05-11-2025 Radiology Diagnostic study note [facility] Imaging Services [address] [place], [place] [address] Chest 1 View (Portable) MR#: [id number] Acct: [id number] Name: JORGE COVINGTON Rep #: [id number] : 1955 M 68 From: Joy Aldana MD PCP: Dr. Brian Zimmerman MD Status: RE G ER Study:Chest 1 View (Portable) Date of Exam: 08/07/24 Exam# [id number] Ordering Dr: Ramsey Harris MD PROCEDURE: CHEST [...] MAAME CC: Dr. Kit Harris MD; Dr. Brian Zimmerman MD ~ Medical Science Liaison: Signed [facility]05-11-2025 Radiology Diagnostic study note [facility] Imaging Services [address] [place] [address] Brain/Head without Contrast MR#: [id number] Acct: [id number] Name: JORGE COVINGTON Rep #: [id number] : 1955 M 68 From: Joy Aldana MD PCP: Dr. Brian Zimmerman MD Status: RE G ER Study:Brain/Head without Contrast Date of Exa m: 08/07/24 Exam# [id number] Ordering Dr: Ramsey Harris MD PROCEDURE: BRAIN/HEAD [...] MAAME CC: Dr. Kit Harris MD; Dr. Brian Zimmerman MD ~ Medical Science Liaison: Signed [facility]05-11-2025 Discharge summary Author Kit Harris [facility] Note Date/Time August 07, 2024 8:59p m [facility] Medical Records Department [address] [place] [address] Emergency Department Summary 08/07/24 MR#: [id number] Acct: [id number] Name: JORGE COVINGTON Rep #:[id number] : 1955 68 From: Kit Harris MD PCP: Dr. Brian Zimmerman MD Status:RE G ER Location: ED HPI [...] pain, vomiting, fevers, headache, focal neurologic deficits. [facility] Medical History Fusion of spine, cervical region [...] of the head to evaluate for acute SUPERVISOR LENDING ACTIVITIES etiologies of his intermittent hallucinations. Ireviewed those [...] (Auto) 65.8 Lymph % (Auto) 17.9 L Kane % (Auto) 9.5 Eos % (Auto) 4.2 [...] Clarity Clear Urine pH 6.5 Ur Specific [place] 1.010 Urine Protein 15 H Urine Glucose [...] 18:30 IMPRESSION: No Acute Findings. Reading Location: [facility] Brain CT 08/07/24 18:31 IMPRESSION: No acute intracranial abnormality. Chronic microvascular ischemic and involutional changes. Other chronic findings as described above. Reading Location: [facility] Rhythm Strip Rhythm Strip: Sinus Rhythm Rate: [...] 40 mg PO DAILY Primary Care Provider: Brian Zimmerman Referrals: Brian Zimmerman MD [Primary Care Provider] - Keep Braxton appointment Print Language: Latvian Disposition Disposition: Home, Self Care What to do if you have Problems For any increased pain, shortness of breath, bleeding, nausea or vomiting, chestpain, or any unexpected problems, contact your Primary Care Provider. Call [facility] ([phone]) or report to the closest Emergency Room. Call 911 if necessary. 08/07/242058 <Electronically signed by Kit Harris MD> Cosigner Signature (if applicable): CC: Dr. Brian Zimmerman MD ~ Signed [facility] Work Phone: 1(188) 348-112005-06-2025 Discharge summary Author Hebert Saavedra [facility] Note Date/Time August 02, 2024 12:54p m [facility] Medical Records Department [address] [place] [address] Emergency Department Summary 08/02/24 MR#: [id number] Acct: [id number] Name: JORGE COVINGTON Rep #:[id number] : 1955 68 From: Hebert Saavedra MD PCP: Dr. Brian Zimmerman MD Status:RE G ER Location: ED HPI [...] (Patient was discharged yesterday from the hospital.) [facility] Medical History Other acute postprocedural pain Paraplegic [...] (Auto) 62.3 Lymph % (Auto) 15.1 L Kane % (Auto) 15.1 H Eos % (Auto) [...] Clarity Clear Urine pH 7.0 Ur Specific [place] 1.005 Urine Protein 15 H Urine Glucose [...] Read by ED Physician (Independent reviewed interpretedby me at 1156. Film slightly rotated. There is no cardiomegaly. There is no effusion or infiltrate. Film is suboptimal.), Unchanged, No Acute Disease and Chronic Changes Diagnostic Testing: Clinical Impression(s) from Imaging Studies Chest X-Ray 08/02/24 11:13 IMPRESSION: Similar appearance of the chest as above including cardiomegaly findings suggestive of mild interstitial edema or atypical pneumonia/pneumonitis. Reading Location: [facility] Radiology report was reviewed. Patient has evidence [...] 40 mg PO DAILY Primary Care Provider: Brian Zimmerman Referrals: Brian Zimmerman MD [Primary Care Provider] - 1-2 Weeks Print Language: Latvian Disposition Disposition: Home, Self Care What to do if you have Problems For any increased pain, shortness of breath, bleeding, nausea or vomiting, chestpain, or any unexpected problems, contact your Primary Care Provider. Call [facility] ([phone]) or report to the closest Emergency Room. Call 911 if necessary. 08/02/24 1254 <Electronically signed by Hebert Saavedra MD> Cosigner Signature (if applicable): CC: Dr. Brian Zimmerman MD ~ Signed [facility] Work Phone: 1(875) 348-255505-06-2025 Discharge summary [facility] Medical Records Department [address] [place] [address] Emergency Department Summary 08/02/24 MR#: [id number] Acct: [id number] Name: JORGE COVINGTON Jeannette Rep #:[id number] : 1955 68 From: Hebert Saavedra MD PCP: Dr. Brian Zimmerman MD Status:RE G ER Location: ED HPI [...] blurry vision loss of vision. He denies hitchccok ears decreased hearing. He denies trouble with [...] (Patient was discharged yesterday from the hospital.) [facility] Medical History Other acute postprocedural pain Paraplegic [...] (Auto) 62.3 Lymph % (Auto) 15.1 L Kane % (Auto) 15.1 H Eos % (Auto) [...] Clarity Clear Urine pH 7.0 Ur Specific [place] 1.005 Urine Protein 15 H Urine Glucose [...] Read by ED Physician (Independent reviewed interpretedby ne at 1156. Filmslightly rotated. There is no cardiomegaly. There is no effusion or infiltrate. Film is suboptimal.), Unchanged, No Acute Disease and Chronic Changes Diagnostic Testing: Clinical Impression(s) from Imaging Studies Chest X-Ray 08/02/24 11:13 IMPRESSION: Similar appearance of the chest as above including cardiomegaly findings suggestive of mild interstitial edema or atypical pneumonia/pneumonitis. Reading Location: [facility] Radiology report was reviewed. Patient has evidence [...] 40 mg PO DAILY Primary Care Provider: Brian Zimmerman Referrals: Brian Zimmerman MD [Primary Care Provider] - 1-2 Weeks Print Language: Latvian Disposition Disposition: Home, Self Care What to do if you have Problems For any increased pain, shortness of breath, bleeding, nausea or vomiting, chestpain, or any unexpected problems, contact your Primary Care Provider. Call [facility] ([phone]) or report tothe closest Emergency Room. Call 911 if necessary. 08/02/24 1254 Cosigner Signature (if applicable): CC: Dr. Brian Zimmerman MD ~ Signed [facility]05-06-2025 Radiology Diagnostic study note [facility] Imaging Services [address] [place] [address] Chest PA and Lateral MR#: [id number] Acct: [id number] Name: JORGE COVINGTON Rep #: [id number] : 1955 M 68 From: Germaine Domingo MD PCP: Dr. Brian Zimmerman MD Status: MT E ER Study:Chest PA and Lateral Date of Exam: 08/02/24 Exam# [id number] Ordering Dr: Adri Saavedra MD PROCEDURE: CHEST [...] interstitial edema or atypical pneumonia/pneumonitis. Reading Location: [id number] CC: Dr. Brian Zimmerman MD; Dr. Hebert Saavedra MD ~ Medical Science Liaison: Signed [facility]05-05-2025 [facility]05-02-2025 Telephone encounter Note* Telephone Encounter - Rocio Gutierrez RN - 07/29/2024 2:24 PM EDT S: Patient's spouse spoke with [facility] nurse regarding test results for spouse from 07/04/2024 B: Onset of symptoms/concern 07/04/2024 A: Patient had blood work completed on 07/04/2024 and has not received the results. Tests completed include: PSA total, T3 Free, T4 Free, TSH, Lipid Panel, Direct LDL, Complete Blood Count, Comprehensive Metabolic. Nurse reviewed the message from Dr. Zimmerman on 07/22/2024 addressing: TG is over 300, [...] result.) Protocols used: PCP Call - No [id number] [id number] Miscellaneous Notes* Telephone Encounter - Rocio Gutierrez RN - 07/29/2024 2:24 PM EDT S: Patient's spouse spoke with [facility] nurse regarding test results for spouse from 07/04/2024 B: Onset of symptoms/concern 07/04/2024 A: Patient had blood work completed on 07/04/2024 and has not received the results. Tests completed include: PSA total, T3 Free, T4 Free, TSH, Lipid Panel, Direct LDL, Complete Blood Count, Comprehensive Metabolic. Nurse reviewed the message from Dr. Zimmerman on 07/22/2024 addressing: TG is over 300, [...] result.) Protocols used: PCP Call - No [id number] documented in this [facility]03-31-2025 Progress note Author Luca Nayak [facility] Note Date/Time June 27, 2024 5:3 9pm [facility] [address] [place] [address] Progress Note - Wound Care 06/27/24 1654 MR#: [id number] Acct: [id number] Name: JORGE COVINGTON Rep #:[id number] : 1955 68 From: Luca Nayak MD PCP: Dr. Brian Zimmerman MD Status:RE G RCR Location: History of [...] Charges/Coding Visit Charges Office Visits / Consults: 95861 OV L3 Est 20min Physical Exam Narrative [...] Date Recorded By Document 05/30/24 15:13 KW [id number] 05/30/24 15:25 KW Document 06/27/24 15:07 [facility] [id number] 06/27/24 15:16 BM 05/30/24 06/27/24 15:13 15:07 WC - Today's Visit Information Type of service Follow-up Visit Follow-up Visit (Physician/APPLICATIONS ENGINEER MANUFACTURING (Physician/APPLICATIONS ENGINEER MANUFACTURING ) ) Arrival Mode Wheelchair Wheelchair Transfer [...] Pain Free? Yes Yes DILCIA - Nurse 1 - General Ulcer Measurement Start: 05/30/24 15:13 Freq: Status: Active Protocol: Activity Type Activity Date Activity User E-sign Co-sign Detail Recorded Client Recorded Date Recorded By Document 05/30/24 15:13 KW [id number] 05/30/24 15:25 KW Document 06/27/24 15:07 BM [id number] 06/27/24 15:16 BM 05/30/24 06/27/24 15:13 15:07 [...] Date Recorded By Document 05/30/24 15:34 JF [id number] 05/30/24 15:39 JF Document 06/27/24 15:43 JF [id number] 06/27/24 15:49 JF Edit Result 06/27/24 15:43 JF (1) [id number] 06/27/24 15:54 JF (1) #5- R ischium [...] Date Recorded By Document 05/30/24 15:45 DL [id number] 05/30/24 15:48 DL Document 06/27/24 16:00 KW [id number] 06/27/24 16:00 KW 05/30/24 06/27/24 15:45 16:00 [...] been working on getting the [facility] records about his spine surgery and his prognosis. She states that she was told it was sent and received but nobody in the hospital system has been able to locate his chart. We will continue to try to get these records. Encouraged increased protein intake to help with wound healing. Waiting to hear from the [facility] to see if they can assist [...] reasonable for just a wound check. 06/27/24 7659 <Electronically signed by Luca Nayak MD> Cosigner Signature (if applicable): CC: ~ Signed [facility] Work Phone: 1(823) 998-343903-31-2025 Progress note [facility] [address] [place] [address] Progress Note - Wound Care 06/27/24 1654 MR#: [id number] Acct: [id number] Name: JORGE COVINGTON Rep #:[id number] : 1955 68 From: Luca Nayak MD PCP: Dr. Brian Zimmerman MD Status:RE G RCR Location: History of [...] Charges/Coding Visit Charges Office Visits / Consults: 84709 OV L3 Est 20min Physical Exam Narrative [...] Recorded Date Recorded By Document 05/30/24 15:13 [id number] 05/30/24 15:25 KW Document 06/27/24 15:07 [facility] [id number] 06/27/24 15:16 [facility] 05/30/24 06/27/24 15:13 15:07 - Today's Visit Information Type of service Follow-up Visit Follow-up Visit (Physician/APPLICATIONS ENGINEER MANUFACTURING (Physician/APPLICATIONS ENGINEER MANUFACTURING ) ) Arrival Mode Wheelchair Wheelchair Transfer [...] Recorded Date Recorded By Document 05/30/24 15:13 [id number] 05/30/24 15:25 KW Document 06/27/24 15:07 [facility] [id number] 06/27/24 15:16 BM 05/30/24 06/27/24 15:13 15:07 [...] Date Recorded By Document 05/30/24 15:34 JF [id number] 05/30/24 15:39 JF Document 06/27/24 15:43 JF [id number] 06/27/24 15:49 JF Edit Result 06/27/24 15:43 JF (1) [id number] 06/27/24 15:54 JF (1) #5- R ischium [...] Date Recorded By Document 05/30/24 15:45 DL [id number] 05/30/24 15:48 DL Document 06/27/24 16:00 KW [id number] 06/27/24 16:00 KW 05/30/24 06/27/24 15:45 16:00 [...] been working on getting the [facility] records about his spine surgery and his prognosis. She states that she was told it was sent and received but nobody in the hospital system has been able to locate his chart. We will continue to try to get these records. Encouraged increased protein intake to help with wound healing. Waiting to hear from the [facility] to see if they can assist [...] reasonable for just a wound check. 06/27/24 1865 Cosigner Signature (if applicable): CC: ~ Signed [facility]03-16-2025 Discharge summary [facility] Medical Records Department [address] [place] [address] Instructions for Home/Discharge Instructions 06/12/24 1326 MR#: [id number] Acct: [id number] Name: JORGE COVINGTON Rep #:[id number] : 1955 68 From: Juliana Shaw MD PCP: Dr. Brian Zimmerman MD Status:AD M IN Discharge Instructions Diet [...] Attending Provider: Juliana Shaw Primary Care Provider: Brian Zimmerman Instructions Patient Instructions: ED Bladder Infection, Male [...] Recorder Preventi (Urgent) Timeframe: 1 Day Facility: [facility] - Location: Cardiovascular Services Ordered By: Dr. Juliana Shaw Referrals / Follow Up: Brian Zimmerman MD [Primary Care Provider] - Disposition Disposition (needs filled in before D/C Order can be placed): Home Health Service 06/12/24 1332Plan Shaw MD CC: Dr. Brian Zimmerman MD ~ Signed [facility]03-16-2025 [facility]03-15-2025 Progress note Author Juliana Shaw [facility] Note Date/Time June 11, 2024 12: 44pm [facility] Medical Records Department [address] [place] [address] Progress Note - Hospitalist 06/11/24 1242 MR#: [id number] Acct: [id number] Name: JORGE COVINGTON Rep #:[id number] : 1955 68 From: Juliana Shaw MD PCP: Dr. Brian Zimmerman MD Status:AD M IN Location: [place] [address] Reason for Visit Reason for Visit: Diagnoses [...] 72.2 H, Lymph % (Auto) 16.6 L, Kane % (Auto) 7.4, Eos % (Auto) 2.2, [...] pending, preliminarily growing gram- negative edward lactose marine steward, white blood cell count downtrending, patient vitally [...] Shaw MD Charges/Coding Visit Charges Inpatient E&M: 85028 Subs Hosp L1 06/11/24 1244 <Electronically signed by Juliana Shaw MD> Cosigner Signature (if applicable): CC: ~ Signed [facility] Work Phone: 1(314) 276-449103-15-2025 Progress note [facility] Medical Records Department [address] [place] [address] Progress Note - Hospitalist 06/11/24 1242 MR#: [id number] Acct: [id number] Name: JORGE COVINGTON Rep #:[id number] : 1955 68 From: Juliana Shaw MD PCP: Dr. Brian Zimmerman MD Status:AD M IN Location: [place] [address]- 1 Reason for Visit Reason for Visit: [...] 72.2 H, Lymph % (Auto) 16.6 L, Kane % (Auto) 7.4, Eos % (Auto) 2.2, [...] pending, preliminarily growing gram- negative edward lactose marine steward, white blood cell count downtrending, patient vitally [...] Shaw MD Charges/Coding Visit Charges Inpatient E&M: 08408 [facility] Hosp L1 06/11/24 1244 Cosigner Signature (if applicable): CC: ~ Signed [facility]03-14-2025 Progress note Author Juliana Shaw [facility] Note Date/Time June 10, 2024 2:2 5pm [facility] Medical Records Department [address] [place] [address] Progress Note - Hospitalist 06/10/24 0859 MR#: [id number] Acct: [id number] Name: JORGE COVINGTON Rep #:[id number] : 1955 68 From: Juliana Shaw MD PCP: Dr. Brian Zimmerman MD Status:AD M IN Location: [place] [address] Reason for Visit Reason for Visit: Diagnoses [...] 85.9 H, Lymph % (Auto) 5.6 L, Kane % (Auto) 6.9, Eos % (Auto) 0.4, [...] Clarity Cloudy, Urine pH 7.0, Ur Specific [place] 1.010, Urine Protein 30 H, Urine Glucose [...] 76.6 H, Lymph % (Auto) 12.1 L, Kane % (Auto) 8.2, Eos % (Auto) 1.4, [...] of scarring. Right apical scarring. Reading Location: [facility] Physical Exam Narrative General: Alert, answers questions [...] pending, preliminarily growing gram- negative edward lactose marine steward, white blood cell count downtrending, patient vitally [...] Shaw MD Charges/Coding Visit Charges Inpatient E&M: 60936 Subs Hosp L1 06/10/24 1424 <Electronically signed [...] Cosigner Signature (if applicable): cc: ~* Signed [facility] Work Phone: 1(953) 910-134303-14-2025 Progress note [facility] Medical Records Department [address] [place] [address] Progress Note - Hospitalist 06/10/24 0859 MR#: [id number] Acct: [id number] Name: CÉSARJORGE A Rep #:[id number] 2 : 1955 68 From: Juliana Shaw MD PCP: Dr. Brian Zimmerman MD Status:AD M IN [facility] Reason for Visit Reason for Visit: [...] 85.9 H, Lymph % (Auto) 5.6 L, Kane % (Auto) 6.9, Eos % (Auto) 0.4, [...] Clarity Cloudy, Urine pH 7.0, Ur Specific [place] 1.010, Urine Protein 30 H, Urine Glucose [...] 76.6 H, Lymph % (Auto) 12.1 L, Kane % (Auto) 8.2, Eos % (Auto) 1.4, [...] of scarring. Right apical scarring. Reading Location: [facility] Physical Exam Narrative General: Alert, answers questions [...] pending, preliminarily growing gram- negative edward lactose marine steward, white blood cell count downtrending, patient vitally [...] Shaw MD Charges/Coding Visit Charges Inpatient E&M: 98688 Subs Hosp L1 06/10/24 142 Cosigner Signature (if applicable): CC: ~ Signed [...] further concerns or if frequency increases 06/10/24 142 Cosigner Signature (if applicable): cc: ~* Signed [facility]03-13-2025 History and physical note Author Juliana Shaw [facility] Note Date/Time June 09, 2024 12: 16pm [facility] Medical Records Department [address] [place] [address] H&P Exam - Hospitalist 06/09/24 1206 MR#: [id number] Acct: [id number] Name: JORGE COVINGTON Rep #:[id number] : 1955 68 From: Juliana Shaw MD PCP: Dr. Brian Zimmerman MD Status:RE G ER Location: ED HPI - General General Date of Admission: 06/09/24 Date of Service: 06/09/24 Chief Complaint: Fever HPI Narrative JORGE COVINGTON, is a 68 M with history of paraplegia, COPD, hypothyroidism, chronic indwelling Benson who presented [facility] ED 06/09/2024 with 1 day of weakness, [...] some diarrhea but otherwise grider negative ROS. [facility] Medical History Other acute postprocedural pain Paraplegic [...] 85.9 H, Lymph % (Auto) 5.6 L, Kane % (Auto) 6.9, Eos % (Auto) 0.4, [...] Clarity Cloudy, Urine pH 7.0, Ur Specific [place] 1.010, Urine Protein 30 H, Urine Glucose [...] of scarring. Right apical scarring. Reading Location: [facility] Assessment & Plan Assessment/Plan (1) Complicated urinary [...] Vascepa if available #DVT ppx: SCDs Juliana hSaw MD Time spent in the patient's overall evaluation, decision-making process, review of diagnostic data, adjustment of management, discussion with other providers, nursing and ancillary staff involved in patient's care documentation, 57 Minutes Charges/Coding Visit Charges Inpatient E&M: 46034 Init Hosp L2 06/09/24 1216 <Electronically signed by Juliana Shaw MD> Cosigner Signature (if applicable): CC: Dr. Juliana Shaw MD; Dr. Brian Zimmerman MD~ Signed [facility] Work Phone: 1(790) 965-322003-13-2025 Evaluation note* Diagnosis Onset Date Resolution Status Admit Date Decubitus ulcer of right buttock, stage 3 [...] Thoracic myelopathy inactive September 16, 2024 2:45pm [facility] Work Phone: 1(346) 598-891303-13-2025 Discharge summary Author Hebert Saavedra [facility] Note Date/Time June 09, 2024 11: 32am [facility] Medical Records Department [address] [place] [address] Emergency Department Summary 06/09/24 MR#: [id number] Acct: [id number] Name: JORGE COVINGTON Rep #:[id number] : 1955 68 From: Hebert Saavedra MD PCP: Dr. Brian Zimmerman MD Status:RE G ER Location: ED HPI [...] however there is a past history [facility] that he has history of COPD. He [...] Prior similar symptoms: Yes Recent Illness/Hospitalization: No [facility] Medical History Other acute postprocedural pain Paraplegic [...] 85.9 H Lymph % (Auto) 5.6 L Kane % (Auto) 6.9 Eos % (Auto) 0.4 [...] Clarity Cloudy Urine pH 7.0 Ur Specific [place] 1.010 Urine Protein 30 H Urine Glucose [...] inspiration. There is family reviewed interpreted by ne [id number].) Diagnostic Testing: Clinical Impression(s) from Imaging Studies Chest X-Ray 06/09/24 09:12 IMPRESSION: Stable mild increased markings at the lung bases suggestive of scarring. Right apical scarring. Reading Location: [id number] Management Discussion w/another healthcare provider: Hospitalist (Spoke [...] coverage since she presents from home. Comments:: Motion Study Technician was asked to page the hospitalist at [phone]. Discharge Plan Dx/Rx/DC Orders Clinical Impression: Complicated urinary tract infection, Bedridden, Paraplegic spinal paralysis, Colostomy in place, Hyperlipidemia, Spinal cord injury, SIRS (systemic inflammatory response syndrome), Leukocytosis, Decubitus ulcer of right buttock,stage 3, Acidosis, lactic Disposition Disposition: Acute Care Hospital [facility] What to do if you have Problems For any increased pain, shortness of breath, bleeding, nausea or vomiting, chestpain, or any unexpected problems, contact your Primary Care Provider. Call [facility] ([phone]) or report to the closest Emergency Room. Call 911 if necessary. 06/09/24 1132 <Electronically signed by Hebert Saavedra MD> Cosigner Signature (if applicable): CC: Dr. Brian Zimmerman MD ~ Signed [facility] Work Phone: 1(641) 592-952403-13-2025 History and physical note [facility] Medical Records Department [address] [place] [address] H&P Exam - Hospitalist 06/09/24 1206 MR#: [id number] Acct: [id number] Name: JORGE COVINGTON Rep #:[id number] : 1955 68 From: Juliana Shaw MD PCP: Dr. Brian Zimmerman MD Status:RE G ER Location: ED HPI - General General Date of Admission: 06/09/24 Date of Service: 06/09/24 Chief Complaint: Fever HPI Narrative JORGE COVINGTON, is a 68 M with history of paraplegia, COPD, hypothyroidism, chronic indwelling Benson who presented [facility] ED 06/09/2024 with 1 day of weakness, [...] some diarrhea but otherwise grider negative ROS. [facility] Medical History Other acute postprocedural pain Paraplegic [...] 85.9 H, Lymph % (Auto) 5.6 L, Kane % (Auto) 6.9, Eos % (Auto) 0.4, [...] Clarity Cloudy, Urine pH 7.0, Ur Specific [place] 1.010, Urine Protein 30 H, Urine Glucose [...] of scarring. Right apical scarring. Reading Location: [facility] Assessment & Plan Assessment/Plan (1) Complicated urinary [...] 57 Minutes Charges/Coding Visit Charges Inpatient E&M: 99234 Init Hosp L2 06/09/24 1216 Cosigner Signature (if applicable): CC: Dr. Juliana Shaw MD; Dr. Brian Zimmerman MD~ Signed [facility]03-13-2025 Discharge summary [facility] Medical Records Department [address] [place] [address] Emergency Department Summary 06/09/24 MR#: [id number] Acct: [id number] Name: JORGE COVINGTON Rep #:[id number] : 1955 68 From: Hebert Saavedra MD PCP: Dr. Brian Zimmerman MD Status:RE G ER Location: ED HPI [...] however there is a past history of [employer] that he has history of COPD. He [...] similar symptoms: Yes Recent Illness/Hospitalization: No PFSH PFSH Medical History Other acute postprocedural pain [...] 85.9 H Lymph % (Auto) 5.6 L Kane % (Auto) 6.9 Eos % (Auto) 0.4 [...] Clarity Cloudy Urine pH 7.0 Ur Specific [place] 1.010 Urine Protein 30 H Urine Glucose [...] limited inspiration. There is familyreviewed interpreted by ne [id number].) Diagnostic Testing: Clinical Impression(s) from Imaging Studies Chest X-Ray 06/09/24 09:12 IMPRESSION: Stable mild increased markings at the lung bases suggestive of scarring. Right apical scarring. Reading Location: [facility] Management Discussion w/another healthcare provider: Hospitalist (Spoke [...] coverage since she presents from home. Comments:: Motion Study Technician was asked to page the hospitalist at [phone]. Discharge Plan Dx/Rx/DC Orders Clinical Impression: Complicated urinary tract infection, Bedridden, Paraplegic spinal paralysis, Colostomy in place, Hyperlipidemia, Spinal cord injury, SIRS (systemic inflammatory response syndrome), Leukocytosis, Decubitus ulcer of right buttock,stage 3, Acidosis, lactic Disposition Disposition: Acute Care Hospital [facility] What to do if you have Problems For any increased pain, shortness of breath, bleeding, nausea or vomiting, chestpain, or any unexpected problems, contact your Primary Care Provider. Call [facility] ([phone]) or report tothe closest Emergency Room. Call 911 if necessary. 06/09/24 1132 Cosigner Signature (if applicable): CC: Dr. Brian Zimmerman MD ~ Signed [facility]03-13-2025 Radiology Diagnostic study note [facility] Imaging Services [address] [place], [place] [address] Chest PA and Lateral MR#: [id number] Acct: [id number] Name: JORGE COVINGTON Rep #: [id number] 3 : 1955 M 68 From: Eric Ocampo MD PCP: Dr. Brian Zimmerman MD Status: RE G ER Study:Chest PA and Lateral Date of Exam: 06/09/24 Exam# [id number] Ordering Dr: Adri Saavedra MD PROCEDURE: CHEST [...] of scarring. Right apical scarring. Reading Location: [id number] CC: Dr. Brian Zimmerman MD; Dr. Hebert Saavedra MD ~ Medical Science Liaison: Signed [facility]03-07-2025 Evaluation note* Diagnosis Onset Date Resolution Status [...] 2 :27pm Scoliosis acute September 16 2:45pm [facility] Work Phone: 1(164) 640-452903-07-2025 Evaluation note* Diagnosis Onset Date Resolution Status [...] 29, 025 9:30pm Urinary tract infection resolved 2024 9:30pm Chronic suprapubic catheter inactive July 29, 2024 9:30pm Right ischial pressure sore acute August 29, 2024 2:27pm Right ischial pressure sore, stage 4 chronic August 29, 2024 2 :27pm Scoliosis acute September 16 2:45pm Cervical myelopathy inactive September 16, 2024 2:45pm Fusion of spine, cervical region ruel ctive September 16, 2024 2:45pm Thoracic myelopathy inactive September 16, 2024 2:45pm [facility] Work Phone: [phone] Progress note Author [facility]a [facility] Note Date/Time May 30, 2024 5:42 pm [facility] [address] [place] [address] Progress Note - Wound Care 05/30/247 MR#: [id number] Acct: [id number] Name: JORGE COVINGTON Rep #:[id number] : 1955 68 From: Luca Nayak MD PCP: Dr. Brian Zimmerman MD Status:RE G RCR Location: History of [...] a walker. He is meeting with the field administrative assistant today at our wound care center after [...] notes from the spine surgeon at the [facility]. Our team is working on [...] labs (ordering). We are referring to the anesthesiologist/nutrition manager here at the wound care center. 04 [...] Index (BMI) 35.5 Charges/Coding Procedures Integumentary 111xxx-113xx: 10682 Lillian musc/fascia 20 sq cm/< Add On Codes: 72139 Lillian musc/fascia add-on (x 1 unit ) [...] Start: 05/30/24 15:13 Freq: Status: Active Protocol: DILCIA.LOWEXRené Activity Type Activity Date Activity User E-sign Co-sign Detail Recorded Client Recorded Date Recorded By Document 05/30/24 15:13 [id number] 05/30/24 15:25 05/30/24 15:13 - Today's Visit Information Type of service Follow-up Visit (Physician/APPLICATIONS ENGINEER MANUFACTURING ) Arrival Mode Wheelchair Accompanied by Patient [...] Date Recorded By Document 05/30/24 15:13 SHAISTA [id number] 05/30/24 15:25 KW 05/30/24 15:13 Wound Center [...] Date Recorded By Document 05/30/24 15:34 ESTER [id number] 05/30/24 15:39 05/30/24 15:34 Wound Center Nurse [...] Date Recorded By Document 05/30/24 15:45 DL [id number] 05/30/24 15:48 DL 05/30/24 15:45 Wound Care [...] been working on getting the [facility] records about his spine surgery and his prognosis. She states that she was told it was sent and received but nobody in the hospital system has been able to locate his chart. We will continue to try to get these records. Encouraged increased protein intake to help with wound healing. Waiting to hear from the [facility] to see if they can assist [...] Cosigner Signature (if applicable): CC: ~ Signed [facility] Work Phone: 1(191) 807-695803-03-2025 Progress note [facility] [address] [place] [address] Progress Note - Wound Care 05/30/24 1837 MR#: [id number] Acct: [id number] Name: JORGE COVINGTON Rep #:[id number] 6 : 1955 68 From: Luca Nayak MD PCP: Dr. Brian Zimmerman MD Status:RE G RCR Location: History of [...] a walker. He is meeting with the field administrative assistant today at our wound care center after [...] notes from the spine surgeon at the [facility]. Our team is working on [...] nutrition labs (ordering). We are referring to thedietician/nutrition manager here at the wound care center. 04 [...] Index (BMI) 35.5 Charges/Coding Procedures Integumentary 111xxx-113xx: 65268 Lillian musc/fascia 20 sq cm/< Add On Codes: 98241 Lillian musc/fascia add-on (x 1 unit ) [...] Date Recorded By Document 05/30/24 15:13 KW [id number] 05/30/24 15:25 05/30/24 15:13 - Today's Visit Information Type of service Follow-up Visit (Physician/APPLICATIONS ENGINEER MANUFACTURING ) Arrival Mode Wheelchair Accompanied by Patient [...] Recorded Date Recorded By Document 05/30/24 15:13 [id number] 05/30/24 15:25 05/30/24 15:13 Wound Center Nurse 1 #5- [...] Date Recorded By Document 05/30/24 15:34 ESTER [id number] 05/30/24 15:39 ESTER 05/30/24 15:34 Wound Center [...] Patient Pain Free? Yes DILCIA - Nurse 3 - General Ulcer D/C NN Start: 05/30/24 15:13 Freq: Status: Active Protocol: Activity Type Activity Date Activity User E-sign Co-sign Detail Recorded Client Recorded Date Recorded By Document 05/30/24 15:45 DL [id number] 05/30/24 15:48 DL 05/30/24 15:45 Wound Care [...] been working on getting the [facility] records about his spine surgery and his prognosis. She states that she was told it was sent and received but nobody in the hospital system has been able to locate his chart. We will continue to try to get these records. Encouraged increased protein intake to help with wound healing. Waiting to hear from the [facility] to see if they can assist [...] improvements with dressings. Continue offloading and the [facility] W[facility]. O.K. for monthly wound checks (challenge for the family to come more often than this, and wound is open and healthy). Plan to continue to promote granulation (has granulated over bone with current regimen). 05/30/241841 Cosigner Signature (if applicable): CC: ~ Signed [facility]02-03-2025 Evaluation note* Diagnosis Onset Date Resolution Status [...] suprapubic catheter inactive July 29, 2024 9:30pm [facility] Work Phone: 1(709) 223-413301-06-2025 Evaluation note* Diagnosis Onset Date Resolution Status [...] 29, 2024 9: 30pm Encephalopathy acute July 29 025 9:30pm Urinary tract infection acute M ay 2024 9:30pm Chronic suprapubic catheter chronic July 29, 2024 9:30pm [facility] Work Phone: 1(772) 922-147201-02-2025 Telephone encounter Note* Telephone Encounter - Galileo Mcguire RN - 03/31/2024 2:58 PM EST Letter faxed to number provided. Successful fax confirmation scanned into media. [id number] Miscellaneous Notes* Telephone Encounter - Galileo Mcguire [...] clogged SPT, per Jennifer. Fax order to [phone]. Please advise. * Telephone Encounter - Ely Flannery - 03/31/2024 12:57 PM EST Name of caller: Jennifer Contact phone number: [phone] Relationship to Patient: [facility] Provider: Dr Casas Practice: Uro Chief Complaint/Reason for Call: Requesting a VERBAL ORDER Super Pubic Catheter Monthly Change. Jennifer: [phone] Patient changed insurance this is why the new Order is being requested. Best time of day caller can be reached: any Patient advised that office/PCP has 24-48 business hours to return their call: No documented in this [facility]01-02-2025 Telephone encounter Note* Telephone Encounter - EVELYNE Mccormack CNP - 03/31/2024 2:29 PM EST Letter created, please fax [employer] Phone: 1(882) 226-790701-02-2025 Telephone encounter Note* Telephone Encounter - Misty Ortiz LPN - 03/31/2024 2:07 PM EST Patient need letter created for orders month SPT changes and care for any clogged SPT, per Jennifer. Fax order to [phone]. Please advise. [facility] [id number] Telephone encounter Note* Telephone Encounter - Ely Flannery - 03/31/2024 12:57 PM EST Name of caller: Jennifer Contact phone number: [phone] Relationship to Patient: [facility] Health Care Provider: Dr Casas Practice: Uro Chief Complaint/Reason for Call: Requesting a VERBAL ORDER Super Pubic Catheter Monthly Change. Jennifer: [phone] Patient changed insurance this is why the new Order is being requested. Best time of day caller can be reached: any Patient advised that office/PCP has 24-48 business hours to return their call: No [facility] [id number] Evaluation note* Diagnosis Onset Date Resolution Status [...] stage 4 chronic June 27, 2024 3:30pm [facility] Work Phone: 1(353) 193-508011-27-2024 Evaluation note* Diagnosis Onset Date Resolution Status [...] (systemic inflammatory response syndrome) acute June 09, 025 12:06pm Spinal cord injury acute June 09, 2024 12:06pm Bedridden chronic June 09 12:06pm Paraplegic spinal paralysis chronic June 09, 2024 12:06pm [facility] Work Phone: 1(173) 749-693111-01-2024 Telephone encounter Note* Telephone Encounter - Shamika Khan - 01/29/2024 1:21 PM EDT Name of caller: Jaqueline Contact phone number: [phone] Relationship to Patient: [facility] Provider: Dr Casas Practice: Urology Chief Complaint/Reason for Call: Jaqueline stated that a voicemail was left on her managers phone and was calling back. Tried to call back line, no answer. Please call Jaqueline back to advise. Best time of day caller can be reached: Any Patient advised that office/PCP has 24-48 business hours to return their call: N/A [facility] [id number] Miscellaneous Notes* Telephone Encounter - Shamika Khan - 01/29/2024 1:21 PM EDT Name of caller: Jaqueline Contact phone number: [phone] Relationship to Patient: [facility] Provider: Dr Casas Practice: Urology Chief Complaint/Reason [...] 01/26/2024 8:12 AM EDT Letter faxed to [facility] - ATTN: Jaqueline Your fax has been successfully sent to [facility] at [phone]. 01/26/2024 7:53:04 AM Conversion Record Successfully created cover sheet. Type: application/vnd.openxmlformats-officedocument.wordprocessingml.document G3 to TIFF #1: Success [image/g3] (48ms) GhostScript TIFF #1: Success [image/tiff] (190ms) Resubmitted: [application/postscript] Word Automation #1: Success [image/tiff] (1534ms) ([id number]:[email or web address]) 01/26/2024 7:52:58 AM Transmission Record Sent to [phone] with remote ID [id number] Result: (0) Success Page record: 1 - 3 Elapsed time: 03:18 on channel 48 01/26/2024 7:52:47 AM Conversion Record [[id number].PRT] Type: application/postscript G3 to TIFF #1: Success [image/g3] (64ms) GhostScript TIFF #1: Success [image/tiff] (379ms) ([id number]:WORKSRV1) 01/26/2024 7:52:40 AM Origin Record Created by [...] that patient is in the ER at [facility] due to SPT being clogged. Home care saw patient this AM but could not change patient's catheter as they do not have orders to change SPT or flush it. Spoke with home care nurse Janell with [facility]. Janell states patient has been an established patient with them for a long time and the SPT is new. Currently they do not have orders to manage SPT. Per spouse they saw Dr. Casas on Thursday and orders were going to be written. Orders need created and faxed. Contact informationincluded below. [facility]. [phone]. ATTN: Jaqueline documented in this [facility]10-29-2024 Telephone encounter Note* Telephone Encounter - Hang Meehan RN - 01/26/2024 8:12 AM EDT Letter faxed to [facility] - ATTN: Jaqueline Your fax has been successfully sent to [facility] at [phone]. 01/26/2024 7:53:04 AM Conversion Record Successfully created cover sheet. Type: application/vnd.openxmlformats-officedocument.wordprocessingml.document G3 to TIFF #1: Success [image/g3] (48ms) GhostScript TIFF #1: Success [image/tiff] (190ms) Resubmitted: [application/postscript] Word Automation #1: Success [image/tiff] (1534ms) ([id number]:WORKSRV2) 01/26/2024 7:52:58 AM Transmission Record Sent to [phone] with remote ID [id number] Result: (0) Success Page record: 1 - 3 Elapsed time: 03:18 on channel 48 01/26/2024 7:52:47 AM Conversion Record [[id number].PRT] Type: application/postscript G3 to TIFF #1: Success [image/g3] (64ms) GhostScript TIFF #1: Success [image/tiff] (379ms) ([id number]:WORKSRV1) 01/26/2024 7:52:40 AM Origin Record Created by JEANNINE [id number] Telephone encounter Note* Telephone Encounter - EVELYNE Pelaez CNP - 01/25/2024 4:54 PM EDT A letter has been created for home health orders. Please fax to home health agency. Thank you [facility] [id number] Telephone encounter Note* Telephone Encounter - Marta Gallegos LPN - 01/25/2024 2:59 PM EDT Patient's spouse called and wanted to let us know that patient is in the ER at [facility] due to SPT being clogged. Home care saw patient this AM but could not change patient's catheter as they do not have orders to change SPT or flush it. Spoke with home care nurse Janell with [facility]. Janell states patient has been an established patient with them for a long time and the SPT is new. Currently they do not have orders to manage SPT. Per spouse they saw Dr. Casas on Thursday and orders were going to be written. Orders need created and faxed. Contact informationincluded below. [facility]. [phone]. ATTN: Jaqueline [facility] [id number] History of Present illness Narrative* Rikki Casas [...] on 12/11/2023. The patient apparently went into [facility] on 12/25/23 (POD#14) because the catheter [...] discharge or drainage around the catheter. 16 Iranian suprapubic tube is in place. Musculoskeletal: General: [...] perform exchange of the suprapubic cystostomy (16 Iranian) on a monthly basis Rikki Casas MD 01/22/24 5:00 PM documented in this [facility]10-25-2024 History of Present illness Narrative* Rikki [...] on 12/11/2023. The patient apparently went into [facility] on 12/25/23 (POD#14) because the catheter [...] discharge or drainage around the catheter. 16 Iranian suprapubic tube is in place. Musculoskeletal: General: [...] perform exchange of the suprapubic cystostomy (16 Iranian) on a monthly basis Rikki Casas MD 01/22/24 5:00 PM * Diana Moore MA - 01/22/2024 9:50 AM EDT Called HHN, left detailed VM to return call to office regarding SPT orders. documented in this encounterSTwin City HospitalRmpcrh20-50-1054 Telephone encounter Note* Telephone Encounter - Emerald Slater RN - 12/18/2023 4:02 PM EDT S: Patient's spoke with [facility] nurse regarding catheter leaking where it is [...] they have a home health care nurse. [facility] Rn advised her to contact Home Health to see if they are able to replace the catheter. Patient's verbalized understanding. No further needs at this time. Reason for Disposition [1] Catheter is broken or cracked AND [2] still works (functioning normally) Protocols used: Urinary Catheter (e.g., Benson) Symptoms and Unqjplpzk-UZDIN-NG [facility] SystemEsvuij09-75-1417 Miscellaneous Notes* Telephone Encounter - Emerald Slater RN - 12/18/2023 4:02 PM EDT S: Patient's spoke with [facility] nurse regarding [...] used: Urinary Catheter (e.g., Benson) Symptoms and Coafdndux-MSSUQ-IE documented in this [facility]09-13-2024 Miscellaneous Notes* Perioperative Nursing Note - Karen [...] of the trocar was withdrawn. A 14 Iranian catheter was advanced through the trocar. The [...] area in stable condition. documented in this encounterSTwin City HospitalMnivqv92-61-2821 Note* Perioperative Nursing Note - Karen Chong RN - 12/11/2023 3:18 PM EDT Discharged to home . Accompanied by . AVS and education reviewed with patient and , both verbalized understanding. Mode of transportation private vehicle Belongings sent. [facility] SystemHzhlft72-19-4286 Note* Perioperative Nursing Note - Karen Chong RN - 12/11/2023 3:18 PM EDT Discharged to home . Accompanied by . AVS and education reviewed with patient and , both verbalized understanding. Mode of transportation private vehicle Belongings sent. [facility] SystemExjina31-67-0034 NoteDischarged to home . Accompanied by . AVS and education reviewed with patient and , both verbalized understanding. Mode of transportation private vehicle Belongings sent.[facility]09-13-2024 Hospital Discharge instructions* Discharge Instructions* Rikki [...] . Rikki Casas M.D. documented in this [facility]09-13-2024 NotePatient: Jorge Covington Procedure Summary Date: 12/11/23 Room / Location: [facility] 2 / [facility] OR Anesthesia Start: 8 Anesthesia Stop: 1355 Procedures: CYSTOSCOPY (Urethra) possible [...] Allowed opportunity for questions and acknowledgement of understanding.[facility]09-13-2024 NotePatient: Jorge Covington Procedure Summary Date: 12/11/23 Room / Location: [facility] / [facility] OR Anesthesia [...] discharged once all PACU criteria has been met.[facility]09-13-2024 NoteAirway Date/Time: 12/11/2023 1:29 PM Urgency: scheduled Airway not difficult General Information and Staff Patient location during procedure: Procedural Resident/TEST DRIVER: Montana Iraheta APRN - TEST DRIVER Performed: TEST DRIVER Indications and Patient Condition Indications for airway management: anesthesia Sedation level: Asleep Preoxygenated: yes Patient position: sniffing MILS maintained throughout Mask difficulty assessment: 1 - vent by mask Final Airway Details Final airway type: supraglottic airway Successful airway: Igel Size 5 ETT size (mm): 7.0 Number of attempts at approach: 1 Ventilation between attempts: none Number of other approaches attempted: 0[facility]09-13-2024 Note* Op Note - Rikki Casas MD - 12/11/2023 1:25 PM EDT OPERATIVE NOTE Patient Name: Jorge Cvoington : 1955 DATE OF PROCEDURE: 12/11/2023 SURGEON: [...] of the trocar was withdrawn. A 14 Iranian catheter was advanced through the trocar. The [...] to the recovery area in stable condition. [facility]09-13-2024 Note* Op Note - Rikki Casas [...] of the trocar was withdrawn. A 14 Iranian catheter was advanced through the trocar. The [...] to the recovery area in stable condition. [facility] SystemWfsbjk86-84-5163 History and physical note* Rikki Casas MD - 12/11/2023 11:52 AM EDT [facility] Comprehensive History and Physical Name: Jorge [...] Rikki Casas MD, 12/11/2023 at 1:23 PM [facility] Work Phone: 1(986) 595-333309-13-2024 History and physical note* Rikki Casas MD - 12/11/2023 11:52 AM EDT [facility] Comprehensive History and Physical Name: [...] 12/11/2023 at 1:23 PM documented in this [facility]09-13-2024 [facility] Comprehensive History and Physical Name: [...] 0.4 mg in the evening. Historical Provider, MD Vascepa 1 g capsule Take 2 g [...] by: Rikki Casas MD, 12/11/2023 at 1:23 [facility] [id number] NotePatient: Jorge Covington Procedure Information Date/Time: 12/11/23 1330 Procedures: CYSTOSCOPY (Urethra) - 1 hour-Jones's trochar equipment will be needed possible trocar suprapubic cystostomy (Abdomen) Location: [facility] 2 / [facility] OR Surgeons: [...] any previous visit. Equipment Requests: Additional Equipment RequestsBr[facility]09-09-2024 Telephone encounter Note* Telephone Encounter - Rikki Casas MD - 12/07/2023 2:46 PM EDT error [facility] SystemGkfzuu79-79-7089 Miscellaneous Notes* Telephone Encounter - Rikki Casas MD - 12/07/2023 2:46 PM EDT error documented in this encounterSTwin City HospitalFgmgkp20-50-5734 Telephone encounter Note* Telephone Encounter - Brooke Ochoa - 09/10/2023 9:21 AM EDT Patient's called office to request an appt at the [place] office. Appt RS to 10/23/[address] Casas in [place]. [facility] SystemDyqhxb17-37-8182 Miscellaneous Notes* Telephone Encounter - Brooke Ochoa - 09/10/2023 9:21 AM EDT Patient's called office to request an appt at the [place] office. Appt RS to 10/23/[address] Casas in [place]. * Telephone Encounter - Cristy Smith - 09/07/2023 1:43 PM EDT Received message via [employer] that pt had been trying to contact office to schedule appt. Returned calland scheduled LABEL PRINTER appt 10/12/[address] Carmona at [facility]. * Telephone Encounter - Fiorella Willoughby - 08/19/2023 10:34 AM EDT Received referral from [employer] uploaded into chart. New patient appt needed. Called pt LVM to call back to schedule. documented in this [facility]06-10-2024 Telephone encounter Note* Telephone Encounter - Cristy Luis - 09/07/2023 1:43 PM EDT Received message via [employer] that pt had been trying to contact office to schedule appt. Returned calland scheduled LABEL PRINTER appt 10/12/[address] Carmona at [facility]. [facility] SystemAabpda50-31-1097 Miscellaneous Notes* Telephone Encounter - Cristy Smith - 09/07/2023 1:43 PM EDT Received message via [employer] that pt had been trying to contact office to schedule appt. Returned calland scheduled LABEL PRINTER appt 10/12/[address] Carmona at [facility]. * Telephone Encounter - Fiorella Willoughby - 08/19/2023 10:34 AM EDT Received referral from [employer] uploaded into chart. New patient appt needed. Called pt LVM to call back to schedule. documented in this [facility]05-22-2024 Telephone encounter Note* Telephone Encounter - Fiorella Willoughby - 08/19/2023 10:34 AM EDT Received referral from [employer] uploaded into chart. New patient appt needed. Called pt LVM to call back to schedule. [facility] SystemTigcoo61-01-8862 Miscellaneous Notes* Telephone Encounter - Fiorella Willoughby - 08/19/2023 10:34 AM EDT Received referral from [employer] uploaded into chart. New patient appt needed. Called pt LVM to call back to schedule. documented in this [facility]04-24-2024 Progress note Author Kemi Rubio [facility] July 22, 2023 5:15pm Note Date/Time July 22, 2023 4:0 9pm [facility] [address] [place] [address] Progress Note - Wound Care 07/22/23 1608 MR#: [id number] Acct: [id number] Name: JORGE COVINGTON Rep #:[id number] : 1955 67 From: Kemi santiago LABEL PRINTER LABEL PRINTER-C PCP: Dr. Brian Zimmerman MD Status:RE G RCR Location: History of [...] Index (BMI) 35.5 Charges/Coding Procedures Integumentary 111xxx-113xx: 30634 Lillian musc/fascia 20 sq cm/< (ICD-10 - [...] Recorded Date Recorded By Document 06/29/23 09:09 F Desktop 06/29/23 09:11 BMF Document 07/22/23 13:04 DL Desktop 07/22/23 13:13 DL 06/29/23 07/22/23 09:09 13:04 - Today's Visit Information Type of service Follow-up Visit Follow-up Visit (Physician/APPLICATIONS ENGINEER MANUFACTURING (Physician/APPLICATIONS ENGINEER MANUFACTURING ) ) Arrival Mode Wheelchair Wheelchair Transfer [...] Recorded Date Recorded By Document 06/29/23 09:09 [facility] Desktop 06/29/23 09:11 [facility] Document 07/22/23 13:04 DL Desktop 07/22/23 13:13 [...] By Document 06/29/23 09:34 Laptop 06/29/23 09:35 Document 07/22/23 13:28 MW Desktop 07/22/23 13:36 [...] benefit from a stay at an [facility] during this time. Patient was informed of [...] DVT, PE, and reaction to anesthesia. 07/22/23 1715 <Electronically signed by Kemi Rubio NP LABEL PRINTER-C> Cosigner Signature (if applicable): CC: ~ Signed [facility] Work Phone: 1(875) 178-449704-02-2024 Progress note Author Kemibehzad Rubio [facility] June 30, 2023 9:52am Note Date/Time June 29, 2023 12:2 8pm [facility] [address] [place] [address] Progress Note - Wound Care 06/29/23 1228 MR#: [id number] Acct: [id number] Name: JORGE COVINGTON Rep #:[id number] 2 : 1955 67 From: Kemi santiago NP LABEL PRINTER-C PCP: Dr. Brian Zimmerman MD Status:RE G [facility] Location: History of Present Illness Date of [...] Index (BMI) 35.5 Charges/Coding Procedures Integumentary 111xxx-113xx: 08944 Lillian musc/fascia 20 sq cm/< (ICD-10 - L89.314, M86.9, F17.200, Z99.3) Add On Codes: 24379 Lillian musc/fascia add-on Debridement Note Debridement Note Post-Debridement Measurements and Additional Note: Post-Debridement Measurements/Treatment - Nurse 1 - General Ulcer Assessment Start: 06/29/23 09:09 Freq: Status: Active Protocol: KIRA Activity Type Activity Date Activity User E-sign Co-sign Detail Recorded Client Recorded Date Recorded By Document 06/29/23 09:09 [facility] Desktop 06/29/23 09:11 [facility] 06/29/23 09:09 - Today's Visit Information Type of service Follow-up Visit (Physician/APPLICATIONS ENGINEER MANUFACTURING ) Arrival Mode Wheelchair Transfer Assistance Billy [...] Recorded Date Recorded By Document 06/29/23 09:09 [facility] Desktop 06/29/23 09:11 [facility] 06/29/23 09:09 Wound Center Nurse 1 [...] Scarring -Moisture (Michelle-wound Skin Appearance) Assessed -Color (Micehlle-wound Skin Appearance) Assessed -Temperature (Michelle-wound Skin No [...] benefit from a stay at an [facility] during this time. Patient was informed of [...] 0952 <Electronically signed by Kemi Rubio NP LABEL PRINTER-C> Cosigner Signature (if applicable): CC: ~ Signed [facility] Work Phone: 1(710) 439-864603-18-2024 Progress note Author Kemi Rubio [facility] June 15, 2023 5:01pm Note Date/Time June 15, 2023 1:0 9pm [facility] [address] [place] [address] Progress Note - Wound Care 06/15/23 1308 MR#: [id number] Acct: [id number] Name: JORGE COVINGTON Rep #:[id number] : 1955 67 From: Kemi santiago LABEL PRINTER LABEL PRINTER-C PCP: Dr. Brian Zimmerman MD Status:RE G RCR Location: History of [...] Index (BMI) 35.5 Charges/Coding Procedures Integumentary 111xxx-113xx: 09734 Lillian musc/fascia 20 sq cm/< (ICD-10 - [...] Desktop 06/01/23 09:26 KW Document 06/15/23 09:34 BMF Desktop 06/15/23 09:39 BMF 06/01/23 06/15/23 09:23 09:34 - Today's Visit Information Type of service Follow-up Visit Follow-up Visit (Physician/APPLICATIONS ENGINEER MANUFACTURING (Physician/APPLICATIONS ENGINEER MANUFACTURING ) ) Arrival Mode Wheelchair Wheelchair Transfer [...] Desktop 06/01/23 09:26 KW Document 06/15/23 09:34 BM Desktop 06/15/23 09:39 BMF 06/01/23 06/15/23 09:23 09:34 Wound Center Nurse [...] By Document 06/01/23 09:39 Laptop 06/01/23 09:43 Document 06/15/23 09:51 Laptop [...] Desktop 06/01/23 09:59 DL Document 06/15/23 10:09 [facility] Desktop 06/15/23 10:10 F 06/01/23 06/15/23 09:56 10:09 Wound Care Center [...] Stable Stable Ambulatory Status Wheelchair Wheelchair Transportation [facility] Type Home Health Home Health Orders Sent [...] and she would prefer he stay in [place] if possibledue to transportation issues. Follow up [...] benefit from a stay at an [facility] during this time. Patient was informed of [...] DVT, PE, and reaction to anesthesia. 06/15/23 1701 <Electronically signed by Kemi Rubio LABEL PRINTER LABEL PRINTER-C> Cosigner Signature (if applicable): CC: ~ Signed [facility] Work Phone: 1(900) 360-771003-17-2024 Telephone encounter Note* Telephone Encounter - Christine Chu - 06/14/2023 3:02 PM EDT Name of caller: Jorge Contact phone number: [phone] Relationship to Patient: patient Provider: Erasmo Practice: [facility] Chief Complaint/Reason for Call: Pt [...] business hours to return their call: N/A [facility] SystemTvpsjs12-05-1470 Miscellaneous Notes* Telephone Encounter - Christine Chu - 06/14/2023 3:02 PM EDT Name of caller: Jorge Contact phone number: [phone] Relationship to Patient: patient Provider: Erasmo Practice: [facility] Chief Complaint/Reason for Call: Pt [...] return their call: N/A documented in this [facility]03-05-2024 Progress note Author Kemi Rubio [facility] June 02, 2023 1:03pm Note Date/Time June 01, 2023 10:2 1am [facility] [address] [place] [address] Progress Note - Wound Care 06/01/23 1021 MR#: [id number] Acct: [id number] Name: JORGE COVINGTON Rep #:[id number] : 1955 67 From: Kemi Jaquez ll LABEL PRINTER LABEL PRINTER-C PCP: Dr. Brian Zimmerman MD Status:RE G RCR Location: History of [...] Index (BMI) 35.5 Charges/Coding Procedures Integumentary 111xxx-113xx: 18512 Lillian musc/fascia 20 sq cm/< (ICD-10 - L89.314, M86.9, F17.200, Z99.3) Add On Codes: 96353 Lillian musc/fascia add-on (ICD-10 - L89.314, M86.9, [...] Recorded Date Recorded By Document 06/01/23 09:23 [employer] 06/01/23 09:26 KW 06/01/23 09:23 - Today's Visit Information Type of service Follow-up Visit (Physician/APPLICATIONS ENGINEER MANUFACTURING ) Arrival Mode Wheelchair Transfer Assistance Billy [...] Date Recorded By Document 06/01/23 09:23 KW [employer] 06/01/23 09:26 KW 06/01/23 09:23 Wound Center [...] By Document 06/01/23 09:39 Laptop 06/01/23 09:43 06/01/23 09:39 Wound Center Nurse 2 -Time [...] him close to home because she prefers [place] over the larger medical centers. I discussed [...] benefit from a stay at an [facility] during this time. Patient was informed of [...] 1303 <Electronically signed by Kemi Rubio NP LABEL PRINTER-C> Cosigner Signature (if applicable): CC: ~ Signed [facility] Work Phone: 1(621) 439-781502-20-2024 Progress note Author [facility]emi [facility] May 19, 2023 12:46pm Note Date/Time May 18, 2023 11:16am [facility] [address] [place] [address] Progress Note - Wound Care 05/18/23 1115 MR#: [id number] Acct: [id number] Name: JORGE COVINGTON Rep #:[id number] : 1955 67 From: Kemi Jaquez LABEL PRINTER LABEL PRINTER-C PCP: Dr. Brian Zimmerman MD Status:RE G RCR Location: History of [...] Index (BMI) 35.5 Charges/Coding Procedures Integumentary 111xxx-113xx: 38505 Lillian musc/fascia 20 sq cm/< (ICD-10 - L89.314, M86.9, F17.200, Z99.3) Add On Codes: 04669 Lillian musc/fascia add-on (ICD-10 - L89.314, M86.9, [...] Start: 05/04/23 09:03 Freq: Status: Active Protocol: DILCIA.LOWPEPE Activity Type Activity Date Activity User E-sign Co-sign Detail Recorded Client Recorded Date Recorded By Document 05/04/23 09:03 [facility] Desktop 05/04/23 09:06 [facility] Document 05/18/23 09:04 [facility] Desktop 05/18/23 09:16 [facility] 05/04/23 05/18/23 09:03 09:04 - Today's Visit Information Type of service Follow-up Visit Follow-up Visit (Physician/APPLICATIONS ENGINEER MANUFACTURING (Physician/APPLICATIONS ENGINEER MANUFACTURING ) ) Arrival Mode Wheelchair Wheelchair Transfer [...] Recorded Date Recorded By Document 05/04/23 09:03 [facility] Desktop 05/04/23 09:06 [facility] Document 05/18/23 09:04 [facility] Desktop 05/18/23 09:16 F 05/04/23 05/18/23 09:03 09:04 Wound Center Nurse [...] Condition Stable Ambulatory Status Wheelchair Transportation Private [facility] Facility Type Home Health Orders Sent Yes [...] benefit from a stay at an [facility] during this time. Patient was informed of [...] DVT, PE, and reaction to anesthesia. 05/19/23 1246 <Electronically signed by Kemi Rubio NP LABEL PRINTER-C> Cosigner Signature (if applicable): CC: ~ Signed [facility] Work Phone: 1(560) 651-150702-06-2024 Progress note Author Kemi Rubio [facility] May 05, 2023 9:37am Note Date/Time May 04, 2023 1 2:19pm [facility] [address] [place] [address] Progress Note - Wound Care 05/04/23 1219 MR#: [id number] Acct: [id number] Name: JORGE COVINGTON Rep #:[id number] : 1955 67 From: Kemi santiago NP LABEL PRINTER-C PCP: Dr. rBian Zimmerman MD Status:RE G RCR Location: History of [...] Index (BMI) 35.5 Charges/Coding Procedures Integumentary 111xxx-113xx: 64410 Lillian musc/fascia 20 sq cm/< (ICD-10 - L89.314, M86.9, F17.200, Z99.3) Add On Codes: 44612 Lillian musc/fascia add-on (ICD-10 - L89.314, M86.9, [...] Start: 05/04/23 09:03 Freq: Status: Active Protocol: DILCIA.LOWEXT Activity Type Activity Date Activity User E-sign Co-sign Detail Recorded Client Recorded Date Recorded By Document 05/04/23 09:03 [facility] Desktop 05/04/23 09:06 [facility] 05/04/23 09:03 - Today's Visit Information Type of service Follow-up Visit (Physician/APPLICATIONS ENGINEER MANUFACTURING ) Arrival Mode Wheelchair Transfer Assistance Billy [...] Recorded Date Recorded By Document 05/04/23 09:03 [facility] Desktop 05/04/23 09:06 [facility] 05/04/23 09:03 Wound Center Nurse 1 [...] benefit from a stay at an [facility] during this time. Patient was informed of [...] 0937 <Electronically signed by Kemi Rubio NP LABEL PRINTER-C> Cosigner Signature (if applicable): CC: ~ Signed [facility] Work Phone: 1(173) 931-535701-25-2024 Progress note Author Kemi Rubio [facility] April 23, 2023 5:04pm Note Date/Time April 21, 2023 4 :48pm [facility] [address] [place] [address] Progress Note - Wound Care 04/21/23 1648 MR#: [id number] Acct: [id number] Name: JORGE COVINGTON Rep #:[id number] : 1955 67 From: Kemi Jaquez ll LABEL PRINTER LABEL PRINTER-C PCP: Dr. Brian Zimmerman MD Status:RE G RCR Location: History of [...] anaerobic bacteria isolated. Charges/Coding Procedures Integumentary 111xxx-113xx: 37275 Lillian musc/fascia 20 sq cm/< (ICD-10 - L89.314, M86.9, F17.200, Z99.3) Add On Codes: 66018 Lillian musc/fascia add-on (ICD-10 - L89.314, M86.9, [...] 04/06/23 09:30 DL Document 04/21/23 13:42 KW [id number] 04/21/23 13:45 KW 04/06/23 04/21/23 09:18 13:42 WC - Today's Visit Information Type of service Follow-up Visit Follow-up Visit (Physician/APPLICATIONS ENGINEER MANUFACTURING (Physician/APPLICATIONS ENGINEER MANUFACTURING ) ) Arrival Mode Wheelchair Wheelchair Transfer [...] Pain Free? Yes Yes DILCIA - Nurse 1 - General Ulcer Measurement Start: 04/06/23 09:18 Freq: Status: Active Protocol: Activity Type Activity Date Activity User E-sign Co-sign Detail Recorded Client Recorded Date Recorded By Document 04/06/23 09:18 DL Desktop 04/06/23 09:30 DL Document 04/21/23 13:42 KW [id number] 04/21/23 13:45 KW 04/06/23 04/21/23 09:18 13:42 [...] 04/06/23 10:08 JF Laptop 04/06/23 10:13 JF Document 04/21/23 13:48 Laptop 04/21/23 13:52 JF 04/06/23 04/21/23 10:08 13:48 Wound Center Nurse [...] Odor after Cleansing No No -Other Dressing christiano Cesarin's -Primary Dressing Covered/Secured with Dry Gauze & [...] benefit from a stay at an [facility] during this time. Patient was informed of [...] events, DVT, PE, and reaction to anesthesia. 04/23/231703 <Electronically signed by Kemi Rubio NP LABEL PRINTERAydinC> Cosigner Signature (if applicable): CC: ~ Signed [facility] Work Phone: 1(853) 273-589301-09-2024 Progress note Author Kemi Rubio [facility] April 07, 2023 2:22pm Note Date/Time April 06, 2023 11 :59am [facility] [address] [place] [address] Progress Note - Wound Care 04/06/23 1159 MR#: [id number] Acct: [id number] Name: JORGE COVINGTON Rep #:[id number] : 1955 67 From: Kemi Jaquez ll LABEL PRINTER LABEL PRINTER-C PCP: Dr. Brian Zimmerman MD Status:RE G RCR Location: History of [...] Index (BMI) 35.5 Charges/Coding Procedures Integumentary 111xxx-113xx: 20784 Lillian musc/fascia 20 sq cm/< (ICD-10 - L89.314, M86.9, F17.200, Z99.3) Add On Codes: 00631 Lillian musc/fascia add-on (ICD-10 - L89.314, M86.9, [...] DL Desktop 04/06/23 09:30 DL 04/06/23 09:18 - Today's Visit Information Type of service Follow-up Visit (Physician/APPLICATIONS ENGINEER MANUFACTURING ) Arrival Mode Wheelchair Transfer Assistance Billy [...] Date Recorded By Document 04/06/23 09:18 DL [employer] 04/06/23 09:30 DL 04/06/23 09:18 Wound Center [...] By Document 04/06/23 10:08 Laptop 04/06/23 10:13 04/06/23 10:08 Wound Center Nurse 2 -Time [...] Patient Pain Free? Yes DILCIA - Nurse 3 - General [...] benefit from a stay at an [facility] during this time. Patient was informed of [...] 1422 <Electronically signed by Kemi Rubio NP LABEL PRINTER-C> Cosigner Signature (if applicable): CC: ~ Signed [facility] Work Phone: 1(780) 129-204612-19-2023 Progress note Author Kemi Rubio [facility] March 17, 2023 11:39am Note Date/Time March 16, 2023 11:54am [facility] [address] [place] [address] Progress Note - Wound Care 03/16/23 1154 MR#: [id number] Acct: [id number] Name: JORGE COVINGTON Rep #:[id number] : 1955 67 From: Kemi santiago LABEL PRINTER LABEL PRINTER-C PCP: Dr. Brian Zimmerman MD Status:RE G RCR Location: History of [...] Index (BMI) 35.5 Charges/Coding Procedures Integumentary 111xxx-113xx: 99050 Lillian musc/fascia 20 sq cm/< (ICD-10 - L89.314, M86.9, F17.200, Z99.3) Add On Codes: 76002 Lillian musc/fascia add-on (ICD-10 - L89.314, M86.9, [...] Recorded Date Recorded By Document 03/02/23 10:58 BM Desktop 03/02/23 11:06 BM Document 03/16/23 08:57 KW Desktop 03/16/23 09:07 KW 03/02/23 03/16/23 10:58 08:57 - Today's Visit Information Type of service Follow-up Visit Follow-up Visit (Physician/APPLICATIONS ENGINEER MANUFACTURING (Physician/APPLICATIONS ENGINEER MANUFACTURING ) ) Arrival Mode Wheelchair Wheelchair Transfer [...] Recorded Date Recorded By Document 03/02/23 10:58 [facility] Desktop 03/02/23 11:06 [facility] Document 03/16/23 08:57 Desktop 03/16/23 09:07 [...] Recorded Date Recorded By Document 03/02/23 11:35 [facility] Desktop 03/02/23 11:36 [facility] Document 03/16/23 09:26 [facility] Desktop 03/16/23 09:26 [facility] 03/02/23 03/16/23 11:35 09:26 Wound Care Center Nurse 3 #5- R ischium -Ulcer Cleansing Rinsed/ Rinsed/ Irrigated with Irrigated with Saline Saline -Foul Odor after Cleansing No No -Other Dressing dakin moist dakins moist gauze gauze -Primary Dressing Covered/Secured with Secured with Secured with Tape Tape -Other Covering abd; per dl hand laster abd Treatment Response Procedure Procedure Tolerated Well [...] benefit from a [facility] at an [facility] during this time. Patient was informed of [...] wound healing. Follow up 3 weeks. 03/17/23 3334 <Electronically signed by Kemi Rubio NP LABEL PRINTER-C> Cosigner Signature (if applicable): CC: ~ Signed [facility] Work Phone: 1(665) 286-443212-08-2023 Telephone encounter Note* Telephone Encounter - Adilene [...] Protocols used: Information Only Call - No Wfhpwy-RYOLY-XC [facility] [id number] Miscellaneous Notes* Telephone Encounter - Adilene Campbell [...] Protocols used: Information Only Call - No Sgkhfb-JUKRV-DG documented in this [facility]12-07-2023 Progress note Author Popeye Messina [facility] March 04, 2023 10:49pm Note Date/Time March 04, 2023 8 :33am [facility] [address] [place] [address] Progress Note - Wound Care 03/02/23 1240 MR#: [id number] Acct: [id number] Name: JORGE COVINGTON Rep #:[id number] : 1955 67 From: Popeye Walker PCP: Dr. Brian Zimmerman MD Status:[facility] Location: History of Present Illness Date of [...] patient's lab results. Charges/Coding Procedures Integumentary 111xxx-113xx: 22032 Lillian musc/fascia 20 sq cm/< (ICD-10 - L89.314, M86.9, F17.200, Z99.3) Add On Codes: 60105 Lillian musc/fascia add-on (ICD-10 - L89.314, M86.9, [...] Recorded Date Recorded By Document 03/02/23 10:58 [facility] Desktop 03/02/23 11:06 [facility] 03/02/23 10:58 - Today's Visit Information Type of service Follow-up Visit (Physician/APPLICATIONS ENGINEER MANUFACTURING ) Arrival Mode Wheelchair Transfer Assistance Billy [...] Recorded Date Recorded By Document 03/02/23 10:58 [facility] Desktop 03/02/23 11:06 [facility] 03/02/23 10:58 Wound Center Nurse 1 [...] Recorded Date Recorded By Document 03/02/23 11:35 [facility] Desktop 03/02/23 11:36 [facility] 03/02/23 11:35 Wound Care Center Nurse 3 #5- R ischium -Ulcer Cleansing Rinsed/ Irrigated with Saline -Foul Odor after Cleansing No -Other Dressing dakin moist gauze -Primary Dressing Covered/Secured with Secured with Tape -Other Covering abd; per dl hand laster Treatment Response Procedure Tolerated Well Pain Scale: [...] likely benefit from a stay at an [facility] during this time. Patient was informed of [...] Cosigner Signature (if applicable): CC: ~ Signed [facility] Work Phone: 1(707) 693-637911-20-2023 Progress note Author Kemi Rubio [facility] February 16, 2023 11:10am Note Date/Time February 16, 2023 11:05am [facility] [address] [place] [address] Progress Note - Wound Care 02/16/23 1100 MR#: [id number] Acct: [id number] Name: JORGE COVINGTON Rep #:[id number] : 1955 67 From: Kemi santiago LABEL PRINTER LABEL PRINTER-C PCP: Dr. rBian Zimmerman MD Status:RE G R Location: History of [...] Index (BMI) 35.5 Charges/Coding Procedures Integumentary 111xxx-113xx: 80881 Lillian musc/fascia 20 sq cm/< Add On Codes: 08405 Lillian musc/fascia add-on Debridement Note Debridement Note [...] Recorded Date Recorded By Document 02/16/23 08:54 [facility] Desktop 02/16/23 09:02 [facility] 02/16/23 08:54 - Today's Visit Information Type of service Follow-up Visit (Physician/APPLICATIONS ENGINEER MANUFACTURING ) Arrival Mode Wheelchair Transfer Assistance Billy [...] Recorded Date Recorded By Document 02/16/23 08:54 [facility] Desktop 02/16/23 09:02 [facility] 02/16/23 08:54 Wound Center Nurse 1 [...] Status Wheelchair Transportation Private Auto Facility Type [facility] Orders Sent Yes Assessment/Plan Assessment/Plan [...] 1110 <Electronically signed by Kemi Rubio NP LABEL PRINTER-C> Cosigner Signature (if applicable): CC: ~ Signed [facility] Work Phone: 1([phone]) 891-911910-27-2023 Progress note Author Kemi Rubio [facility] January 23, 2023 4:04pm Note Date/Time January 19, 2023 1 1:11am [facility] [address] [place] [address] Progress Note - Wound Care 01/19/23 1111 MR#: [id number] Acct: [id number] Name: JORGE COVINGTON Rep #:[id number] : 1955 67 From: Kemi santiago NP LABEL PRINTER-C PCP: Dr. Brian Zimmerman MD Status:RE G RCR Location: History of [...] Index (BMI) 35.5 Charges/Coding Procedures Integumentary 111xxx-113xx: 02429 Lillian musc/fascia 20 sq cm/< Add On Codes: 51806 Lillian musc/fascia add-on Debridement Note Debridement Note [...] Recorded Date Recorded By Document 12/29/22 08:14 [facility] Desktop 12/29/22 08:15 [facility] Document 01/19/23 08:17 Desktop 01/19/23 08:18 ESTER 12/29/22 01/19/23 08:14 08:17 WC - Today's Visit Information Type of service Follow-up Visit Follow-up Visit (Physician/APPLICATIONS ENGINEER MANUFACTURING (Physician/APPLICATIONS ENGINEER MANUFACTURING ) ) Arrival Mode Wheelchair Wheelchair Transfer [...] 12/29/22 08:14 BM Desktop 12/29/22 08:15 BM Document 01/19/23 08:17 Desktop 01/19/23 08:18 12/29/22 01/19/23 08:14 08:17 Wound Center Nurse [...] Tablet 12/29/22 09:17 PL Document 01/19/23 08:58 [facility] Desktop 01/19/23 09:00 BMF 12/29/22 01/19/23 09:16 08:58 Wound Care Center Nurse 3 #5- R ischium -Ulcer Cleansing Rinsed/ Rinsed/ Irrigated with Irrigated with Saline Saline -Foul Odor after Cleansing No No -Other Dressing MÓNICA Rogers MOIST GAUZE; PER DL TANNING CONSULTANT -Primary Dressing Covered/Secured with Dry Gauze, Secured with Secured with Tape Tape -Other Covering ABD Treatment Response Procedure Tolerated Well Pain Scale: 0-10 Numeric Is Patient Pain Free? Yes Yes WC - Visit Discharge Discharge Condition Stable Stable Ambulatory Status Wheelchair [facility] Type Home Health Assessment/Plan Assessment/Plan (1) [...] 1604 <Electronically signed by Kemi Rubio NP LABEL PRINTER-C> Cosigner Signature (if applicable): CC: ~ Signed [facility] Work Phone: 1(465) 382-503910-05-2023 Progress note Author Kmei Rubio [facility] December 31, 2022 10:35pm Note Date/Time December 29, 2022 9: 47am [facility] [address] [place] [address] Progress Note - Wound Care 12/29/22 0947 MR#: [id number] Acct: [id number] Name: JORGE COVINGTON Rep #:[id number] : 1955 67 From: Kemi santiago NP LABEL PRINTER-C PCP: Dr. Brian Zimmerman MD Status:RE G RCR Location: History of [...] Index (BMI) 35.5 Charges/Coding Procedures Integumentary 111xxx-113xx: 38762 Lillian musc/fascia 20 sq cm/< Add On Codes: 72218 Lillian musc/fascia add-on Debridement Note Debridement Note [...] Recorded Date Recorded By Document 12/29/22 08:14 [facility] Desktop 12/29/22 08:15 [facility] 12/29/22 08:14 - Today's Visit Information Type of service Follow-up Visit (Physician/APPLICATIONS ENGINEER MANUFACTURING ) Arrival Mode Wheelchair Transfer Assistance Billy [...] Recorded Date Recorded By Document 12/29/22 08:14 [facility] Desktop 12/29/22 08:15 [facility] 12/29/22 08:14 Wound Center Nurse 1 #5- [...] Recorded Date Recorded By Document 12/29/22 08:57 [facility] Laptop 12/29/22 09:02 JF 12/29/22 08:57 Wound Center Nurse 2 -Time [...] Patient Pain Free? Yes DILCIA - Nurse 3 - General [...] Call or come in sooner if needed. 12/31/22 5992 <Electronically signed by Kemi Rubio NP LABEL PRINTER-C> Cosigner Signature (if applicable): CC: ~ Signed [facility] Work Phone: [phone]) 193-683909-15-2023 Progress note Author Kemi Rubio [facility] December 12, 2022 12:58pm Note Date/Time December 08, 2022 9:33am [facility] [address] [place] [address] Progress Note - Wound Care 12/08/22 0932 MR#: [id number] Acct: [id number] Name: JORGE COVINGTON Rep #:[id number] : 1955 67 From: Kemi santiago NP LABEL PRINTER-C PCP: Dr. Brian Zimmerman MD Status:RE G RCR Location: History of [...] Index (BMI) 35.5 Charges/Coding Procedures Integumentary 111xxx-113xx: 46288 Lillian musc/fascia 20 sq cm/< Add On Codes: 27264 Lillian musc/fascia add-on Debridement Note Debridement Note [...] Recorded Date Recorded By Document 12/08/22 08:52 TRELL [id number] 12/08/22 08:54 RB 12/08/22 08:52 - Today's Visit Information Type of service Follow-up Visit (Physician/APPLICATIONS ENGINEER MANUFACTURING ) Arrival Mode Ambulatory Transfer Assistance None [...] Recorded Date Recorded By Document 12/08/22 08:52 TRELL [id number] 12/08/22 08:54 RB 12/08/22 08:52 Wound Center [...] Attached -Granulation Amt Medium (34-66%) -Granulation Quality Heartwell -Slough/Fibrin Yes -Necrosis Amt Medium (34-66%) -Necrotic [...] Recorded Date Recorded By Document 12/08/22 09:09 ESTER [id number] 12/08/22 09:11 ESTER 12/08/22 09:09 Wound Center Nurse 2 -Time [...] Recorded Date Recorded By Document 12/08/22 09:16 KW [id number] 12/08/22 09:17 KW Document 12/08/22 09:27 DL [id number] 12/08/22 09:28 DL 12/08/22 12/08/22 09:16 09:27 [...] or come in sooner if needed. 12/12/22 7392 <Electronically signed by Kemi Rubio NP LABEL PRINTER-C> Cosigner Signature (if applicable): CC: ~ Signed [facility] Work Phone: 1(524) 286-277008-28-2023 Progress note Author Kari Romero [facility] November 24, 2022 8:35am Note Date/Time November 24, 2022 8: 36am [facility] Medical Records Department [address] [place] [address] Progress Note - Surgery 11/24/22 0832 MR#: [id number] Acct: [id number] Name: JORGE COVINGTON Rep #:[id number] : 1955 67 From: Kari Walker PCP: Dr. Brian Zimmerman MD Status:AD M IN Location: [place] [address]1 Subjective Subjective Patient seen and examined during [...] this afternoon. Charges/Coding Visit Charges Inpatient E&M: 42510 Subs Hosp L2 11/24/22 0835 <Electronically signed by Kari Romero MD> Cosigner Signature (if applicable): CC: ~ Signed [facility] Work Phone: 1(323) 262-313608-27-2023 Progress note Author Nakita Arroyo [facility] November 23, 2022 10:10am Note Date/Time November 23, 2022 8: 37am [facility] Medical Records Department [address] [place] [address] Progress Note - Surgery 11/23/22 0837 MR#: [id number] Acct: [id number] Name: JORGE COVINGTON Rep #:[id number] : 1955 67 From: Nakita Arroyo MD PCP: Dr. Brian Zimmerman MD Status:AD M IN Location: [place] [address]1 Subjective Subjective Patient tolerating diet and having [...] Continue home meds. Nakita Arroyo M.D. Pager: [phone] [facility] [address] [place] [address], [facility], [address] [place] [address] Office: [phone] 11/23/22 0958 <Electronically signed by Nakita Arroyo MD> Cosigner Signature (if applicable): CC: ~ Signed ADDENDUM by Dr. Nakita Arroyo MD on 11/23/22 at 1010 Addendum khoi was in for i/o-- will d/c 11/23/22 1010<Electronically signed by Nakita Arroyo MD> Cosigner Signature (if applicable): cc: ~* Signed [facility] Work Phone: 1(393) 462-310708-26-2023 Progress note Author Nakita Arroyo [facility] November 22, 2022 8:01am Note Date/Time November 22, 2022 8: 01am [facility] Medical Records Department [address] [place] [address] Progress Note - Surgery 11/22/22701 MR#: [id number] Acct: [id number] Name: JORGE COVINGTON Rep #:[id number] : 1955 67 From: Nakita Arroyo MD PCP: Dr. Brian Zimmerman MD Status:AD M IN Location: [place] [address]-1 Subjective Subjective Patient tolerating clears having brown [...] patient's home meds. Nakita Arroyo M.D. Pager: [phone] [facility] [address] [place] [address], [facility], [address] [place] [address] Office: [phone] 11/22/22 0801 <Electronically signed by Nakita Arroyo MD> Cosigner Signature (if applicable): CC: ~ Signed [facility] Work Phone: 1([phone]) 717-663608-25-2023 History and physical note Author Kari Romero [facility] November 21, 2022 7:30am Note Date/Time November 21, 2022 7: 30am [facility] Medical Records Department [address] [place] [address] History & Physical Exam 11/21/22 0729 MR#: [id number] Acct: [id number] Name: JORGE COVINGTON Rep #:[id number] : 1955 67 From: Kari Walker PCP: Dr. Brian Zimmerman MD Status:[facility] Location: [place] [address] History and Physical Date of Service: 09/05/22 MR#: [id number] Acct: [id number] Name: JORGE COVINGTON Jeannette Rep #: [id number] : 1955 Provider: Dr. Kari Romero MD Age/Sex: 67/M Location: [facility] Status: Signed Intake Vital Signs 06/19/2311:17 09/06/2307:48 Height 5 ft 6 in BP 117/69 Blood Pressure Location Rt radial Position Sitting Respiration 18 Pulse 80 Pulse Source Monitor Temp 97.3 F L Temp Source Temporal Pulse Oximetry (%) 95 Oxygen Delivery Method room air Intake Visit Reasons: UPDATE H&P FOR COLOSTOMY Chief Complaint: Update H&P/ Discuss Colostomy Wire Lather Required: No Is patient in pain?: No [...] 09/05/22] arginine 7 gram-glutam 7 gram-CaHMB 1.5 aypq-ikzww-sn-min oral pwd pkt (Edgar (with collagen)) 1 [...] No gallbladder problem and No black,tarry stools Jus Hematologic: No blood thinners, No blood disorders, [...] Postoperatively patient will be admitted to the [facility] for observation. 11/21/22 0730 <Electronically signed by Kari Romero MD> Cosigner Signature (if applicable): CC: Dr. Kari Romero MD; Dr. Brian Zimmerman MD~ Signed [facility] Work Phone: 1(666) 101-306408-20-2023 Progress note Author Kemi Rubio [facility] November 16, 2022 7:11pm Note Date/Time November 10, 2022 12 :25pm [facility] [address] [place] [address] Progress Note - Wound Care 11/10/22 1225 MR#: [id number] Acct: [id number] Name: JORGE COVINGTON Rep #:[id number] : 1955 67 From: Kemi santiago LABEL PRINTER LABEL PRINTER-C PCP: Care Physician,No Primary Status :REG RCR [...] Index (BMI) 35.5 Charges/Coding Procedures Integumentary 111xxx-113xx: 82594 Lillian musc/fascia 20 sq cm/< Add On Codes: 46444 Lillian musc/fascia add-on Debridement Note Debridement Note [...] Recorded Date Recorded By Document 11/10/22 08:37 [facility] [id number] 11/10/22 08:43 [facility] 11/10/22 08:37 - Today's Visit Information Type of service Follow-up Visit (Physician/APPLICATIONS ENGINEER MANUFACTURING ) Arrival Mode Wheelchair Transfer Assistance Billy [...] Recorded Date Recorded By Document 11/10/22 08:37 [facility] [id number] 11/10/22 08:43 [facility] 11/10/22 08:37 Wound Center Nurse 1 [...] Recorded Date Recorded By Document 11/10/22 09:11 ESTER [id number] 11/10/22 09:17 ESTER 11/10/22 09:11 Wound Center Nurse 2 -Time [...] Recorded Date Recorded By Document 11/10/22 09:20 [id number] 11/10/22 09:21 ESTER 11/10/22 09:20 Wound Care Center Nurse 3 [...] 11/16/221910 <Electronically signed by Kemi Rubio NP LABEL PRINTER-C> Cosigner Signature (if applicable): CC: ~ Signed [facility] Work Phone: 1(684) 548-585707-24-2023 Progress note Author [facility] October 20, 2022 10:26am Note Date/Time October 20, 2022 10:1 9am [facility] [address] [place] [address] Progress Note - Wound Care 10/20/22 1017 MR#: [id number] Acct: [id number] Name: JORGE COVINGTON Rep #:[id number] : 1955 67 From: Kemi santiago LABEL PRINTER LABEL PRINTER-C PCP: Care Physician,No Primary Status :REG RCR [...] Index (BMI) 35.5 Charges/Coding Procedures Integumentary 111xxx-113xx: 56237 Lillian musc/fascia 20 sq cm/< Add On Codes: 87410 Lillian musc/fascia add-on (x1) Debridement Note Debridement [...] Start: 10/06/22 08:38 Freq: Status: Active Protocol: DILCIAElectrolytic OzonePEPE Activity Type Activity Date Activity User E-sign Co-sign Detail Recorded Client Recorded Date Recorded By Document 10/06/22 08:38 [facility] [id number] 10/06/22 08:48 [facility] Document 10/20/22 08:28 [facility] [id number] 10/20/22 08:32 BMF 10/06/22 10/20/22 08:38 08:28 - Today's Visit Information Type of service Follow-up Visit Follow-up Visit (Physician/APPLICATIONS ENGINEER MANUFACTURING (Physician/APPLICATIONS ENGINEER MANUFACTURING ) ) Arrival Mode Wheelchair Wheelchair Transfer [...] Recorded Date Recorded By Document 10/06/22 08:38 BMF [id number] 10/06/22 08:48 BMF Document 10/20/22 08:28 BMF [id number] 10/20/22 08:32 BMF 10/06/22 10/20/22 08:38 08:28 [...] Solution Solution Lower Limb Edema Present NA DILCIA - Nurse 2 - General Ulcer CM Notes Start: 10/06/22 08:38 Freq: Status: Active Protocol: Activity Type Activity Date Activity User E-sign Co-sign Detail Recorded Client Recorded Date Recorded By Document 10/06/22 09:07 JF [id number] 10/06/22 09:10 JF Document 10/20/22 09:02 MW [id number] 10/20/22 09:05 MW 10/06/22 10/20/22 09:07 09:02 [...] Date Recorded By Document 10/06/22 09:13 ESTER [id number] 10/06/22 09:14 ESTER Document 10/20/22 09:10 SHAISTA [id number] 10/20/22 09:11 KW 10/06/22 10/20/22 09:13 09:10 Wound Care Center [...] 1026 <Electronically signed by Kemi Rubio NP LABEL PRINTER-C> Cosigner Signature (if applicable): CC: ~ Signed [facility] Work Phone: 1([phone]) 985-185407-10-2023 Progress note Author Kemi Rubio [facility] October 06, 2022 2:08pm Note Date/Time October 06, 2022 9:27 am [facility] [address] [place] [address] Progress Note - Wound Care 10/06/22 0925 MR#: [id number] Acct: [id number] Name: JORGE COVINGTON Rep #:[id number] : 1955 67 From: Kemi santiago NP LABEL PRINTER-C PCP: Care Physician,No Primary Status :REG RCR [...] Index (BMI) 35.5 Charges/Coding Procedures Integumentary 111xxx-113xx: 36890 Lillian musc/fascia 20 sq cm/< Add On Codes: 52281 Lillian musc/fascia add-on Debridement Note Debridement Note [...] Start: 10/06/22 08:38 Freq: Status: Active Protocol: LOWEX Activity Type Activity Date Activity User E-sign Co-sign Detail Recorded Client Recorded Date Recorded By Document 10/06/22 08:38 [facility] [id number] 10/06/22 08:48 [facility] 10/06/22 08:38 WC - Today's Visit Information Type of service Follow-up Visit (Physician/APPLICATIONS ENGINEER MANUFACTURING ) Arrival Mode Wheelchair Transfer Assistance Billy [...] Recorded Date Recorded By Document 10/06/22 08:38 [facility] [id number] 10/06/22 08:48 BMF 10/06/22 08:38 Wound Center Nurse 1 #5- [...] Date Recorded By Document 10/06/22 09:07 ESTER [id number] 10/06/22 09:10 10/06/22 09:07 Wound Center Nurse 2 -Time [...] Date Recorded By Document 10/06/22 09:13 ESTER [id number] 10/06/22 09:14 ESTER 10/06/22 09:13 Wound Care [...] or come in sooner if needed. 10/06/22 1403 <Electronically signed by Kemi Rubio NP LABEL PRINTER-C> Cosigner Signature (if applicable): CC: ~ Signed [facility] Work Phone: [phone]) [phone] Progress note Author Kemi Rubio [facility] September 23, 2022 12:51pm Note Date/Time September 15, 2022 9:24 am [facility] [address] [place] [address] Progress Note - Wound Care 09/15/22923 MR#: [id number] Acct: [id number] Name: JORGE COVINGTON Rep #:[id number] : 1955 67 From: Kemi Jaquez DAVID LABEL PRINTER-C PCP: Care Physician,No Primary Status :REG RCR [...] Index (BMI) 35.5 Charges/Coding Procedures Integumentary 111xxx-113xx: 25899 Lillian musc/fascia 20 sq cm/< Add On Codes: 62596 Lillian musc/fascia add-on Debridement Note Debridement Note [...] Date Recorded By Document 09/01/22 09:10 DL [id number] 09/01/22 09:22 DL Document 09/15/22 08:09 [facility] [id number] 09/15/22 08:13 [facility] 09/01/22 09/15/22 09:10 08:09 - Today's Visit Information Type of service Follow-up Visit Follow-up Visit (Physician/APPLICATIONS ENGINEER MANUFACTURING (Physician/APPLICATIONS ENGINEER MANUFACTURING ) ) Arrival Mode Wheelchair Wheelchair Transfer [...] Date Recorded By Document 09/01/22 09:10 DL [id number] 09/01/22 09:22 DL Document 09/15/22 08:09 BM [id number] 09/15/22 08:13 BMF 09/01/22 09/15/22 09:10 08:09 Wound Center Nurse [...] Recorded Date Recorded By Document 09/01/22 09:52 [id number] 09/01/22 09:55 Document 09/15/22 09:07 PL [id number] 09/15/22 09:09 PL 09/01/22 09/15/22 09:52 09:07 [...] Recorded Date Recorded By Document 09/01/22 10:09 BM [id number] 09/01/22 10:10 BM Document 09/15/22 08:54 DL [id number] 09/15/22 08:55 DL 09/01/22 09/15/22 10:09 08:54 [...] or come in sooner if needed. 09/23/22 1251 <Electronically signed by Kemi Rubio NP LABEL PRINTER-C> Cosigner Signature (if applicable): CC: ~ Signed [facility] Work Phone: 1(305) 166-151206-11-2023 Progress note Author [facility] September 06, 2022 10:52pm Note Date/Time September 01, 2022 1:00p [facility] [address] [place] [address] Progress Note - Wound Care 09/01/22 1300 MR#: [id number] Acct: [id number] Name: JORGE COVINGTON Rep #:[id number] : 1955 67 From: Kemi santiago NP LABEL PRINTER-C PCP: Care Physician,No Primary Status :REG RCR [...] Index (BMI) 35.5 Charges/Coding Procedures Integumentary 111xxx-113xx: 30124 Lillian musc/fascia 20 sq cm/< Add On Codes: 80919 Lillian musc/fascia add-on Debridement Note Debridement Note [...] Date Recorded By Document 09/01/22 09:10 DL [id number] 09/01/22 09:22 DL 09/01/22 09:10 WC - Today's Visit Information Type of service Follow-up Visit (Physician/APPLICATIONS ENGINEER MANUFACTURING ) Arrival Mode Wheelchair Transfer Assistance Billy [...] Date Recorded By Document 09/01/22 09:10 DL [id number] 09/01/22 09:22 DL 09/01/22 09:10 Wound Center [...] Recorded Date Recorded By Document 09/01/22 09:52 ESTER [id number] 09/01/22 09:55 ESTER 09/01/22 09:52 Wound Center Nurse 2 -Time [...] Recorded Date Recorded By Document 09/01/22 10:09 [facility] [id number] 09/01/22 10:10 [facility] 09/01/22 10:09 Wound Care Center Nurse [...] or come in sooner if needed. 09/06/22 6899 <Electronically signed by Kemi Rubio NP LABEL PRINTER-C> Cosigner Signature (if applicable): CC: ~ Signed [facility] Work Phone: 1(163) 858-851305-28-2023 Progress note [facility] August 24, 2022 1:14pm Note Date/Time August 18, 2022 11:31 am [facility] [address] [place] [address] Progress Note - Wound Care 08/18/22 1131 MR#: [id number] Acct: [id number] Name: JORGE COVINGTON Rep #:[id number] : 1955 67 From: Kemi santiago LABEL PRINTER LABEL PRINTER-C PCP: Care Physician,No Primary Status :REG RCR [...] Index (BMI) 35.5 Charges/Coding Procedures Integumentary 111xxx-113xx: 27974 Lillian musc/fascia 20 sq cm/< Add On Codes: 00469 Lillian musc/fascia add-on Debridement Note Debridement Note [...] Date Recorded By Document 07/28/22 09:10 DL [id number] 07/28/22 09:13 DL Document 08/18/22 08:35 BM [id number] 08/18/22 08:44 BMF 07/28/22 08/18/22 09:10 08:35 - Today's Visit Information Type of service Follow-up Visit Follow-up Visit (Physician/APPLICATIONS ENGINEER MANUFACTURING (Physician/APPLICATIONS ENGINEER MANUFACTURING ) ) Arrival Mode Wheelchair Wheelchair Transfer [...] Date Recorded By Document 07/28/22 09:10 DL [id number] 07/28/22 09:13 DL Document 08/18/22 08:35 [facility] [id number] 08/18/22 08:44 BMF 07/28/22 08/18/22 09:10 08:35 [...] Date Recorded By Document 07/28/22 09:24 ESTER [id number] 07/28/22 09:26 JF Edit Result 07/28/22 09:24 JF (1) [id number] 07/29/22 06:33 PL Document 08/18/22 09:14 ESTER [id number] 08/18/22 09:17 JF (1) #5- R ischium - Debridement, [...] Date Recorded By Document 07/28/22 09:50 PL [id number] 07/28/22 09:51 PL Document 08/18/22 09:21 [facility] [id number] 08/18/22 09:22 [facility] 07/28/22 08/18/22 09:50 09:21 Wound Care Center Nurse 3 #5- R ischium -Ulcer Cleansing Rinsed/ Rinsed/ Irrigated with Irrigated with Saline Saline -Foul Odor after Cleansing No No -Primary Dressing Applied Hysept ($) -Other Dressing Use,abd dakins moist gauze; per ak hand laster -Primary Dressing Covered/Secured with Secured with Secured [...] or come in sooner if needed. 08/24/22 1314 <Electronically signed by Kemi Rubio NP LABEL PRINTER-C> Cosigner Signature (if applicable): CC: ~ Signed [facility] Work Phone: 1(335) 178-794605-09-2023 Progress note Author Kemi [facility] August 05, 2022 3:38pm Note Date/Time July 28, 2022 12:17p [facility] [address] [place] [address] Progress Note - Wound Care 07/28/22 1217 MR#: [id number] Acct: [id number] Name: JORGE COVINGTON Rep #:[id number] 3 : 1955 66 From: Kemi santiago LABEL PRINTER LABEL PRINTER-C PCP: Care Physician,No Primary Status :REG RCR [...] Index (BMI) 35.5 Charges/Coding Procedures Integumentary 111xxx-113xx: 73448 Lillian musc/fascia 20 sq cm/< Add On Codes: 16041 Lillian musc/fascia add-on Debridement Note Debridement Note [...] Date Recorded By Document 07/28/22 09:10 DL [id number] 07/28/22 09:13 DL 07/28/22 09:10 WC - Today's Visit Information Type of service Follow-up Visit (Physician/APPLICATIONS ENGINEER MANUFACTURING ) Arrival Mode Wheelchair Transfer Assistance Billy [...] Date Recorded By Document 07/28/22 09:10 DL [id number] 07/28/22 09:13 DL 07/28/22 09:10 Wound Center [...] Date Recorded By Document 07/28/22 09:24 ESTER [id number] 07/28/22 09:26 ESTER 07/28/22 09:24 Wound Center [...] Patient Pain Free? Yes DILCIA - Nurse 3 - General Ulcer D/C NN Start: 07/28/22 08:57 Freq: Status: Active Protocol: Activity Type Activity Date Activity User E-sign Co-sign Detail Recorded Client Recorded Date Recorded By Document 07/28/22 09:50 PL [id number] 07/28/22 09:51 PL 07/28/22 09:50 Wound Care [...] or come in sooner if needed. 08/05/22 0377 <Electronically signed by Kemi Rubio NP LABEL PRINTER-C> Cosigner Signature (if applicable): CC: ~ Signed [facility] Work Phone: 1(492) 305-600304-23-2023 Progress note Author Kemi Rubio [facility] July 20, 2022 6:50pm Note Date/Time July 14, 2022 12: 07pm [facility] [address] [place] [address] Progress Note - Wound Care 07/14/22 1206 MR#: [id number] Acct: [id number] Name: JOGRE COVINGTON Rep #:[id number] 3 : 1955 66 From: Kemi santiago NP LABEL PRINTER-C PCP: Care Physician,No Primary Status :REG RCR [...] Index (BMI) 35.5 Charges/Coding Procedures Integumentary 111xxx-113xx: 94651 Global Visit Debridement Note Debridement Note Wound [...] Date Recorded By Document 06/30/22 08:16 DL [id number] 06/30/22 08:24 DL Document 07/14/22 08:21 DL [id number] 07/14/22 08:29 DL 06/30/22 07/14/22 08:16 08:21 - Today's Visit Information Type of service Follow-up Visit Follow-up Visit (Physician/APPLICATIONS ENGINEER MANUFACTURING (Physician/APPLICATIONS ENGINEER MANUFACTURING ) ) Arrival Mode Wheelchair Wheelchair Transfer [...] Date Recorded By Document 06/30/22 08:16 DL [id number] 06/30/22 08:24 DL Document 07/14/22 08:21 DL [id number] 07/14/22 08:29 DL 06/30/22 07/14/22 08:16 08:21 [...] Date Recorded By Document 06/30/22 09:08 ESTER [id number] 06/30/22 09:16 Edit Result 06/30/22 09:08 JF (1) [id number] 07/01/22 06:53 PL Document 07/14/22 09:24 [id number] 07/14/22 09:31 JF (1) #5- R ischium [...] Date Recorded By Document 06/30/22 09:31 PL [id number] 06/30/22 09:32 PL Document 07/14/22 09:47 DL [id number] 07/14/22 09:47 DL 06/30/22 07/14/22 09:31 09:47 [...] 1850 <Electronically signed by Kemi Rubio NP LABEL PRINTER-C> Cosigner Signature (if applicable): CC: ~ Signed [facility] Work Phone: 1(409) 610-992404-08-2023 Progress note Author Kemi Rubio [facility] July 05, 2022 9:24pm Note Date/Time June 30, 2022 9:36 am [facility] [address] [place] [address] Progress Note - Wound Care 06/30/22 0936 MR#: [id number] Acct: [id number] Name: JORGE COVINGTON Rep #:[id number] 3 : 1955 66 From: Kemi santiago LABEL PRINTER LABEL PRINTER-C PCP: Care Physician,No Primary Status :REG RCR [...] Index (BMI) 35.5 Charges/Coding Procedures Integumentary 111xxx-113xx: 89868 Global Visit Debridement Note Debridement Note Wound [...] Date Recorded By Document 06/30/22 08:16 DL [id number] 06/30/22 08:24 DL 06/30/22 08:16 WC - Today's Visit Information Type of service Follow-up Visit (Physician/APPLICATIONS ENGINEER MANUFACTURING ) Arrival Mode Wheelchair Transfer Assistance Billy [...] Date Recorded By Document 06/30/22 08:16 DL [id number] 06/30/22 08:24 DL 06/30/22 08:16 Wound Center Nurse 1 #5- [...] Date Recorded By Document 06/30/22 09:08 ESTER [id number] 06/30/22 09:16 ESTER 06/30/22 09:08 Wound Center [...] Date Recorded By Document 06/30/22 09:31 PL [id number] 06/30/22 09:32 PL 06/30/22 09:31 Wound Care [...] 07/05/222123 <Electronically signed by Kemi Rubio NP LABEL PRINTER-C> Cosigner Signature (if applicable): CC: ~ Signed [facility] Work Phone: 1(148) 844-919403-22-2023 History and physical note Author Dr. Romero [facility] June 18, 2022 12:40pm Note Date/Time June 18, 2022 12: 40pm [facility] Medical Records Department [address] [place] [address] History & Physical Exam 06/18/22 1237 MR#: [id number] Acct: [id number] Name: JORGE COVINGTON Rep #:[id number] : 1955 66 From: Kari Walker PCP: Care Physician,No Primary Status :[facility] Location: [place] [address] History and Physical Date of Admission: 06/18/22 Date of Service:? 05/27/22 MR#: [id number] Acct: [id number] Name:? JORGE COVINGTON Jeannette Rep #: [id number] : 1955 ? ? Provider: Dr. Kari Romero MD Age/Sex:? 66/M ? ? Location: [facility] Status: Signed Intake Vital Signs ? 04/28/2316:34 05/02/2311:00 05/27/2312:34 Height 5 ft 6 in 5 ft 6 in 5 ft 6 in Weight: ? ? 188 lb BMI ? ? 30.3 BP ? ? 139/70 H Blood Pressure Location ? ? Rt brachial Position ? ? Sitting Respiration ? ? 18 Intake Visit Reasons:?DISCUSS COLOSTOMY CREATION Chief Complaint: Discuss ostomy Wire Lather Required: No Is patient in pain?: No [...] 05/27/22] arginine 7 gram-glutam 7 gram-CaHMB 1.5 qlne-hsgih-yx-min oral pwd pkt (Edgar (with collagen)) 1 [...] that he will need to have a trailer truck driver with him the day of [...] Romero MD; No Primary Care Physician~ Signed [facility] Work Phone: 1(833) 762-615403-22-2023 Procedure [facility] 06-11-2022 Progress note Author Kemi Rubio [facility] June 11, 2022 8:32am Note Date/Time June 09, 2022 1:0 9pm [facility] [address] [place] [address] Progress Note - Wound Care 06/09/22 1308 MR#: [id number] Acct: [id number] Name: JORGE COVINGTON Rep #:[id number] 4 : 1955 66 From: Kemi santiago LABEL PRINTER LABEL PRINTER-C PCP: Dr. Brian Zimmerman MD Status:RE G RCR Location: History of [...] Index (BMI) 35.5 Charges/Coding Procedures Integumentary 111xxx-113xx: 85381 Global Visit Debridement Note Debridement Note Wound [...] Start: 06/09/22 08:13 Freq: Status: Active Protocol: DILCIA.NORIS Activity Type Activity Date Activity User E-sign Co-sign Detail Recorded Client Recorded Date Recorded By Document 06/09/22 08:15 [facility] [id number] 06/09/22 08:25 [facility] 06/09/22 08:15 - Today's Visit Information Type of service Follow-up Visit (Physician/APPLICATIONS ENGINEER MANUFACTURING ) Arrival Mode Wheelchair Transfer Assistance Billy [...] Recorded Date Recorded By Document 06/09/22 08:15 [facility] [id number] 06/09/22 08:25 [facility] 06/09/22 08:15 Wound Center Nurse 1 [...] Recorded Date Recorded By Document 06/09/22 08:45 [id number] 06/09/22 08:47 06/09/22 08:45 Wound Center Nurse 2 -Time [...] Recorded Date Recorded By Document 06/09/22 08:53 [facility] [id number] 06/09/22 08:54 [facility] 06/09/22 08:53 Wound Care Center Nurse 3 #5- R ischium -Ulcer Cleansing Rinsed/ Irrigated with Saline -Foul Odor after Cleansing No -Primary Dressing Applied Hysept ($) -Other Dressing abd; drsg per dl hand laster -Primary Dressing Covered/Secured with Secured with Tape [...] 0832 <Electronically signed by Kemi Rubio NP LABEL PRINTER-C> Cosigner Signature (if applicable): CC: ~ Signed [facility] Work Phone: [phone]) 307-436702-27-2023 Progress note Author Kemi Rubio [facility] May 26, 2022 10:41am Note Date/Time May 26, 2022 10:38am [facility] [address] [place] [address] Progress Note - Wound Care 05/26/22 1032 MR#: [id number] Acct: [id number] Name: JORGE COVINGTON Rep #:[id number] 1 : 1955 66 From: Kemi santiago LABEL PRINTER LABEL PRINTER-C PCP: Dr. Brian Zimmerman MD Status:RE G RCR Location: History of [...] Index (BMI) 35.5 Charges/Coding Procedures Integumentary 111xxx-113xx: 70678 Global Visit Debridement Note Debridement Note Wound [...] Recorded Date Recorded By Document 05/05/22 10:54 [facility] [id number] 05/05/22 10:57 [facility] Document 05/12/22 08:40 BM [id number] 05/12/22 08:49 BM Document 05/26/22 08:40 DL [id number] 05/26/22 08:42 DL 05/05/22 05/12/22 05/26/22 10:54 08:40 08:40 - Today's Visit Information Type of service Follow-up Visit Follow-up Visit Follow-up Visit (Physician/APPLICATIONS ENGINEER MANUFACTURING (Physician/APPLICATIONS ENGINEER MANUFACTURING (Physician/APPLICATIONS ENGINEER MANUFACTURING ) ) ) Arrival Mode Wheelchair Wheelchair [...] Recorded Date Recorded By Document 05/05/22 10:54 [facility] [id number] 05/05/22 10:57 [facility] Document 05/12/22 08:40 BMF [id number] 05/12/22 08:49 BMF Document 05/26/22 08:40 DL [id number] 05/26/22 08:42 DL 05/05/22 05/12/22 05/26/22 10:54 [...] Recorded Date Recorded By Document 05/05/22 11:08 [facility] [id number] 05/05/22 11:14 [facility] Document 05/12/22 09:05 [id number] 05/12/22 09:06 Document 05/26/22 09:42 [id number] 05/26/22 09:44 05/05/22 05/12/22 05/26/22 11:08 09:05 [...] Recorded Date Recorded By Document 05/05/22 11:20 [facility] [id number] 05/05/22 11:21 BMF Document 05/12/22 09:15 ML [id number] 05/12/22 09:15 ML Document 05/26/22 09:47 DL [id number] 05/26/22 09:48 DL 05/05/22 05/12/22 05/26/22 11:20 [...] -Other Covering abd; drsg per ABD ak hand laster Treatment Response Procedure Procedure Tolerated Well Tolerated Well Pain Scale: 0-10 Numeric Is Patient Pain Free? Yes Yes Yes WC - Visit Discharge Discharge Condition Stable Stable Ambulatory Status Wheelchair Wheelchair Transportation [facility] Accompanied by Facility Type Home Health [...] 05/26/22 1041 <Electronically signed by Kemi Rubio NP LABEL PRINTER-C> Cosigner Signature (if applicable): CC: ~ Signed [facility] Work Phone: 1(509) 693-310402-15-2023 Progress note Author Kemi Rubio [facility] May 14, 2022 5:43pm Note Date/Time May 12, 2022 11:40am [facility] [address] [place] [address] Progress Note - Wound Care 05/12/22 1140 MR#: [id number] Acct: [id number] Name: JORGE COVINGTON Rep #:[id number] : 1955 66 From: Kemi santiago NP LABEL PRINTER-C PCP: Dr. Brian Zimmerman MD Status:RE G RCR Location: History of [...] Index (BMI) 35.5 Charges/Coding Procedures Integumentary 111xxx-113xx: 11429 Global Visit Debridement Note Debridement Note Wound [...] Recorded Date Recorded By Document 05/05/22 10:54 [facility] [id number] 05/05/22 10:57 [facility] Document 05/12/22 08:40 [facility] [id number] 05/12/22 08:49 [facility] 05/05/22 05/12/22 10:54 08:40 - Today's Visit Information Type of service Follow-up Visit Follow-up Visit (Physician/APPLICATIONS ENGINEER MANUFACTURING (Physician/APPLICATIONS ENGINEER MANUFACTURING ) ) Arrival Mode Wheelchair Wheelchair Transfer [...] Recorded Date Recorded By Document 05/05/22 10:54 [id number] 05/05/22 10:57 [facility] Document 05/12/22 08:40 [facility] [id number] 05/12/22 08:49 [facility] 05/05/22 05/12/22 10:54 08:40 Wound Center Nurse [...] Recorded Date Recorded By Document 05/05/22 11:08 [facility] [id number] 05/05/22 11:14 [facility] Document 05/12/22 09:05 [id number] 05/12/22 09:06 05/05/22 05/12/22 11:08 09:05 Wound [...] Recorded Date Recorded By Document 05/05/22 11:20 [facility] [id number] 05/05/22 11:21 [facility] Document 05/12/22 09:15 ML [id number] 05/12/22 09:15 ML 05/05/22 05/12/22 11:20 09:15 Wound Care Center Nurse 3 #5- R ischium -Ulcer Cleansing Rinsed/ Rinsed/ Irrigated with Irrigated with Saline Saline -Foul Odor after Cleansing No No -Other Dressing dakins moist DAKINS gauze MOISTENED GAUZE -Primary Dressing Covered/Secured with Dry Gauze, Secured with Tape -Other Covering abd; drsg per ak hand laster Treatment Response Procedure Tolerated Well Pain Scale: 0-10 Numeric Is Patient Pain Free? Yes Yes WC - Visit Discharge Discharge Condition Stable Ambulatory Status Wheelchair Transportation [facility] Accompanied by Facility Type Home Health [...] Call or come in sooner if needed. 05/14/22 6397 <Electronically signed by Kemi Rubio NP LABEL PRINTER-C> Cosigner Signature (if applicable): CC: ~ Signed [facility] Work Phone: [phone]) 152-759702-12-2023 Progress note Author Kemi Rubio [facility] May 11, 2022 8:31pm Note Date/Time May 05, 2022 1 1:35am [facility] [address] [place] [address] Progress Note - Wound Care 05/05/22 1135 MR#: [id number] Acct: [id number] Name: JORGE COVINGTON Rep #:[id number] 1 : 1955 66 From: eKmi santiago LABEL PRINTER LABEL PRINTER-C PCP: Dr. Brian Zimmerman MD Status:RE G RCR Location: History of [...] Index (BMI) 35.5 Charges/Coding Procedures Integumentary 111xxx-113xx: 19169 Global Visit Physical Exam Const alert General [...] Recorded Date Recorded By Document 05/05/22 10:54 [facility] [id number] 05/05/22 10:57 [facility] 05/05/22 10:54 - Today's Visit Information Type of service Follow-up Visit (Physician/APPLICATIONS ENGINEER MANUFACTURING ) Arrival Mode Wheelchair Transfer Assistance Billy [...] Recorded Date Recorded By Document 05/05/22 10:54 [facility] [id number] 05/05/22 10:57 [facility] 05/05/22 10:54 Wound Center Nurse 1 [...] Recorded Date Recorded By Document 05/05/22 11:08 [facility] [id number] 05/05/22 11:14 [facility] 05/05/22 11:08 Wound Center Nurse 2 [...] Recorded Date Recorded By Document 05/05/22 11:20 [facility] [id number] 05/05/22 11:21 [facility] 05/05/22 11:20 Wound Care Center Nurse 3 #5- R ischium -Ulcer Cleansing Rinsed/ Irrigated with Saline -Foul Odor after Cleansing No -Other Dressing dakins moist gauze -Other Covering abd; drsg per ak hand laster Treatment Response Procedure Tolerated Well Pain Scale: 0-10 Numeric Is Patient Pain Free? Yes WC - Visit Discharge Discharge Condition Stable Ambulatory Status Wheelchair Transportation [facility] Accompanied by Facility Type Home Health [...] his care. I spoke with our social work assistant/case management at the hospital and they stated [...] 05/11/222030 <Electronically signed by Kemi Rubio NP LABEL PRINTER-C> Cosigner Signature (if applicable): CC: ~ Signed [facility] Work Phone: 1(136) [phone] Singh [facility] May 02, 2022 3:10pm Note Date/Time May 02, 2022 1 2:35pm [facility] Medical Records Department [address] [place] [address] Emergency Department Summary 05/02/22 MR#: [id number] Acct: [id number] Name: JORGE COVINGTON Rep #:[id number] 2 : 1955 66 From: Ted Gonzalez PCP: Dr. Brian Zimmerman MD Status:RE G ER Location: ED HPI [...] office was told to go the ER. [facility] Medical History Arthritis Bedridden COPD (chronic obstructive [...] Unknown] arginine 7 gram-glutam 7 gram-CaHMB 1.5 fvkd-dczxx-ak-min oral pwd pkt (Edgar (with collagen)) 1 [...] (Auto) 69.8 Lymph % (Auto) 15.5 L Kane % (Auto) 10.8 H Eos % (Auto) [...] Days Qty: 28 0RF Primary Care Provider: Brian Zimmerman Referrals: Popeye Messina MD [Med Staff - Active Staff] - Keep [facility] appointment Brian Zimmerman MD [Primary Care Provider] - 1 Week [...] your Primary Care Provider. Call [facility] ([phone]) or report to the closest Emergency Room. Call 911 if necessary. 05/02/22 1510 <Electronically signed by Ted Gonzalez> Cosigner Signature (if applicable): CC: Dr. Brian Zimmerman MD ~ Signed [facility] Work Phone: [phone]) 603-804101-27-2023 Progress note Author Cristy Verma [facility] April 25, 2022 9:15am Note Date/Time April 25, 2022 9 :02am [facility] [address] [place] [address] Progress Note - Wound Care 04/25/22 0856 MR#: [id number] Acct: [id number] Name: JORGE COVINGTON Rep #:[id number] 1 : 1955 66 From: Cristy GONZALEZ PCP: Dr. Brian Zimmerman MD Status:RE G RCR Location: History of [...] Charges/Coding Visit Charges Office Visits / Consults: 03733 OV L1 Est Physical Exam Const alert, [...] Date Recorded By Document 04/10/22 13:21 DL [id number] 04/10/22 13:24 DL Document 04/15/22 13:50 [facility] [id number] 04/15/22 13:57 BMF Document 04/25/22 08:01 AK [id number] 04/25/22 08:14 AK 04/10/22 04/15/22 04/25/22 13:21 13:50 08:01 - Today's Visit Information Type of service Follow-up Visit Follow-up Visit Follow-up Visit (Physician/APPLICATIONS ENGINEER MANUFACTURING (Physician/APPLICATIONS ENGINEER MANUFACTURING (Physician/APPLICATIONS ENGINEER MANUFACTURING ) ) ) Arrival Mode Wheelchair Wheelchair [...] Date Recorded By Document 04/10/22 13:21 DL [id number] 04/10/22 13:24 DL Document 04/15/22 13:50 [facility] [id number] 04/15/22 13:57 BMF Document 04/25/22 08:01 AK [id number] 04/25/22 08:14 AK 04/10/22 04/15/22 04/25/22 13:21 [...] (67-100%) Large (67-100%) -Granulation Quality Red Red Heartwell,Red -Slough/Fibrin Yes Yes Yes -Necrosis Amt Small [...] Recorded Date Recorded By Document 04/10/22 13:51 [id number] 04/10/22 14:01 MW Document 04/15/22 14:47 [id number] 04/15/22 14:51 04/10/22 04/15/22 13:51 14:47 Wound Center Nurse [...] Recorded Date Recorded By Document 04/10/22 14:09 [facility] [id number] 04/10/22 14:11 [facility] Document 04/25/22 08:32 ML [id number] 04/25/22 08:34 ML 04/10/22 04/25/22 14:09 08:32 Wound Care Center Nurse 3 #5- R ischium -Ulcer Cleansing Rinsed/ Rinsed/ Irrigated with Irrigated with Saline Saline -Foul Odor after Cleansing No No -Primary Dressing Applied Mepilex Border -Other Dressing DAKINS MOIST daykins0.25, GAUZE DRSG PER moistened guaze DL TANNING CONSULTANT .abd -Primary Dressing Covered/Secured with Dry Gauze, [...] Cosigner Signature (if applicable): CC: ~ Signed [facility] Work Phone: 1(626) 257-417301-20-2023 History and physical note Author Dr. Messina [facility] April 17, 2022 11:41pm Note Date/Time April 15, 2022 3 :40pm [facility] [address] [place] [address] H&P Exam - Wound Care 04/15/22 1533 MR#: [id number] Acct: [id number] Name: JORGE COVINGTON Rep #:[id number] : 1955 66 From: Popeye Walker PCP: Dr. Brian Zimmerman MD Status:RE G RCR Location: History of Present Illness Date of Service: 04/15/22 Chief Complaint: WOUND CENTER CONSULT Referring Provider: CARLOS Crouch. [employer] Management Professor: Dr. Messina Right ischial pressure sore, Stage [...] granulation tissue. extends to the ischial bone. [facility] Medical History Bedridden Pressure sore Right ischial [...] GG 12 billion cell-inulin 200 mg capsule ([employer]) 1 cap PO DAILY 30 days #30 [...] Start: 04/10/22 13:06 Freq: Status: Active Protocol: DILCIA.NORIS Activity Type Activity Date Activity User E-sign Co-sign Detail Recorded Client Recorded Date Recorded By Document 04/10/22 13:21 DL [id number] 04/10/22 13:24 DL Document 04/15/22 13:50 [facility] [id number] 04/15/22 13:57 BM 04/10/22 04/15/22 13:21 13:50 - Today's Visit Information Type of service Follow-up Visit Follow-up Visit (Physician/APPLICATIONS ENGINEER MANUFACTURING (Physician/APPLICATIONS ENGINEER MANUFACTURING ) ) Arrival Mode Wheelchair Wheelchair Transfer [...] Date Recorded By Document 04/10/22 13:21 DL [id number] 04/10/22 13:24 DL Document 04/15/22 13:50 [facility] [id number] 04/15/22 13:57 BMF 04/10/22 04/15/22 13:21 13:50 [...] Date Recorded By Document 04/10/22 13:51 MW [id number] 04/10/22 14:01 MW Document 04/15/22 14:47 [id number] 04/15/22 14:51 04/10/22 04/15/22 13:51 14:47 Wound Center Nurse [...] Recorded Date Recorded By Document 04/10/22 14:09 [facility] [id number] 04/10/22 14:11 [facility] 04/10/22 14:09 Wound Care Nurse 3 #5- R ischium -Ulcer Cleansing Rinsed/ Irrigated with Saline -Foul Odor after Cleansing No -Primary Dressing Applied Mepilex Border -Other Dressing DAKINS MOIST GAUZE DRSG PER DL TANNING CONSULTANT -Primary Dressing Covered/Secured with Dry Gauze, Secured with Tape -Mepilex Border 1 Treatment Response Procedure Tolerated Well Pain Scale: 0-10 Numeric Is Patient Pain Free? Yes - Visit Discharge Discharge Condition Stable Ambulatory Status Wheelchair Transportation TRANSPORT Facility Type Home Health Lab / Micro Data Attestation: I reviewed the patient's lab results. Charges/Coding Visit Charges Office Visits / Consults: 79266 OV L5 New (25 Modifier ICD-10 - L89.314, M86.9, Z74.01, F17.200) Procedures Integumentary 111xxx-113xx: 12027 Lillian musc/fascia 20 sq cm/< (ICD-10 - L89.314, M86.9, Z74.01, F17.200) Add On Codes: 12844 Lillian musc/fascia add-on (X2 units ICD-10 - [...] I suspect osteomyelitis and the need for longitudinal float operator IV antibiotics through the use of a [...] have deleterious effects on wound healing. 04/17/22 2341 <Electronically signed by Popeye Messina MD> Cosigner Signature (if applicable): CC: ~ Signed [facility] Work Phone: 1(174) 310-151701-12-2023 Progress note Author Cristy Verma [facility] April 10, 2022 4:47pm Note Date/Time April 10, 2022 4 :47pm [facility] [address] [place] [address] Progress Note - Wound Care 04/10/22 1633 MR#: [id number] Acct: [id number] Name: JORGE COVINGTON Rep #:[id number] : 1955 66 From: Cristy GONZALEZ PCP: Dr. Brian Zimmerman MD Status:[facility] Location: History of Present Illness Date of [...] 35.5 Charges/Coding Wound Center CF Procedures 96XXX-98XXX: 91791 RMVL DEVITAL TIS 20 CM/< Multi Select Codes Wound Center CF Procedures 96XXX-98XXX: 32206 RMVL DEVITAL TIS 20 CM/< Physical Exam [...] Date Recorded By Document 04/10/22 13:21 DL [id number] 04/10/22 13:24 DL 04/10/22 13:21 WC - Today's Visit Information Type of service Follow-up Visit (Physician/APPLICATIONS ENGINEER MANUFACTURING ) Arrival Mode Wheelchair Transfer Assistance Billy [...] Recorded Date Recorded By Document 04/10/22 13:21 [id number] 04/10/22 13:24 DL 04/10/22 13:21 Wound Center [...] Date Recorded By Document 04/10/22 13:51 MW [id number] 04/10/22 14:01 MW 04/10/22 13:51 Wound Center [...] Recorded Date Recorded By Document 04/10/22 14:09 [facility] [id number] 04/10/22 14:11 [facility] 04/10/22 14:09 Wound Care Nurse 3 #5- R BUTTOCK -Ulcer Cleansing Rinsed/ Irrigated with Saline -Foul Odor after Cleansing No -Primary Dressing Applied Mepilex Border -Other Dressing DAKINS MOIST GAUZE DRSG PER DL TANNING CONSULTANT -Primary Dressing Covered/Secured with Dry Gauze, Secured [...] new symptoms or signs of infection arise. 04/10/227 <Electronically signed by Cristy GONZALEZ> Cosigner Signature (if applicable): CC: ~ Signed [facility] Work Phone: [phone] 158-352202-27-2021 NotePatient Outreach (COVAMN) JORGE COVINGTON ([id number]) 1955 M Date Time Provider Department 05/26/20 [...] Fully Assessed Order(s):SARS-COVID VACCINE 1ST DOSE APPT [[id number]] Order #: [id number] FUTURE Prescriptions as of 05/26/2020 Sig: PANTOPRAZOLE [...] More... Encounter Status:Closed by EPIC, PRODUSER on 05/29/20[facility] Discharge summary Author Brooke Lerma [facility] November 24, 2022 3:35pm Note Date/Time November 24, 2022 3: 24pm [facility] Medical Records Department [address] [place] [address] Discharge Summary 11/24/22 1522 MR#: [id number] Acct: [id number] Name: JORGE COVINGTON Rep #:[id number] : 1955 67 From: Brooke GONZALEZ PAMazin PCP: Dr. Brian Zimmerman MD Status:AD M IN Location: [address] Providers Date of Admission: 11/21/22 Primary Care Physician: Dr. 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/applications programmer Routine Comment: Reason for Consult:: new Colostomy/ [...] 04/25/22 arginine 7 gram-glutam 7 gram-CaHMB 1.5 wjff-glmgv-io-min oral pwd pkt (Edgar (with collagen)) 1 [...] Attending Provider: Kari Romero Primary Care Provider: Brian Zimmerman Discharge Orders/Prescriptions Prescriptions: Continued tamsulosin 0.4 MG [...] can be placed): Home, Self Care 11/24/22 9879 <Electronically signed by Brooke GONZALEZ PA-C> Cosigner Signature (if applicable): CC: HENOK Lerma; Dr. Brian Zimmerman MD~ Signed [facility] Work Phone: Discharge summary Author Brooke Lerma [facility] November 24, 2022 3:34pm Note Date/Time November 24, 2022 3: 34pm [facility] Medical Records Department [address] [place] [address] Instructions for Home/Discharge Instructions 11/24/22 1532 MR#: [id number] Acct: [id number] Name: JORGE COVINGTON Rep #:[id number] : 1955 67 From: Brooke GONZALEZ PAMazin PCP: Dr. Brian Zimmerman MD Status:AD M IN Discharge Instructions Diet [...] MD When: Follow-up in 2 weeks. Call [phone] for an appointment Test Results: Test results from this visit will be discussed in further detail at your follow- up appointment, if applicable. Discharge Plan Admission Admit Date/Time: 11/21/22 16:29 Primary Reason for Your Visit: Diverting colostomy Attending Provider: Kari Romero Primary Care Provider: Brian Zimmerman Discharge Orders/Prescriptions Prescriptions: Continued tamsulosin 0.4 MG [...] Brooke GONZALEZ PA-C>Brooke GONZALEZ PA-C CC: Dr. Brian Zimmerman MD ~ Signed [facility] Work Phone: Discharge summary Author Hebert Saavedra [facility] Note Date/Time June 09, 2024 11: 32am [facility] Medical Records Department [address] [place] [address] Emergency Department Summary 06/09/24 MR#: [id number] Acct: [id number] Name: JORGE COVINGTON Rep #:[id number] : 1955 68 From: Hebert Saavedra MD PCP: Dr. Brian Zimmerman MD Status:RE G ER Location: ED HPI History of Present Illness Chief Complaint: Shortness of Breath Detail of Chief Complaint: Squcorey was called for lift assist. He was [...] however there is a past history of ItrybeforeIbuy that he has history of COPD. He [...] similar symptoms: Yes Recent Illness/Hospitalization: No PFSH PFSH Medical History Other acute postprocedural pain [...] 85.9 H Lymph % (Auto) 5.6 L Kane % (Auto) 6.9 Eos % (Auto) 0.4 [...] Clarity Cloudy Urine pH 7.0 Ur Specific [place] 1.010 Urine Protein 30 H Urine Glucose [...] inspiration. There is family reviewed interpreted by ne [id number].) Diagnostic Testing: Clinical Impression(s) from Imaging Studies Chest X-Ray 06/09/24 09:12 IMPRESSION: Stable mild increased markings at the lung bases suggestive of scarring. Right apical scarring. Reading Location: [facility] Management Discussion w/another healthcare provider: Hospitalist (Spoke [...] coverage since she presents from home. Comments:: Paris was asked to page the hospitalist at [phone]. Discharge Plan Dx/Rx/DC Orders Clinical Impression: Complicated urinary tract infection, Bedridden, Paraplegic spinal paralysis, Colostomy in place, Hyperlipidemia, Spinal cord injury, SIRS (systemic inflammatory response syndrome), Leukocytosis, Decubitus ulcer of right buttock,stage 3, Acidosis, lactic Disposition Disposition: Acute Care Hospital [facility] What to do if you have Problems For any increased pain, shortness of breath, bleeding, nausea or vomiting, chestpain, or any unexpected problems, contact your Primary Care Provider. Call [facility] ([phone]) or report to the closest Emergency Room. Call 911 if necessary. 06/09/24 1132 <Electronically signed by Hebert Saavedra MD> Cosigner Signature (if applicable): CC: Dr. Brian Zimmerman MD ~ Signed [facility] Work Phone: Discharge summary Author Juliana Shaw [facility] Note Date/Time June 12, 2024 1:3 2pm [facility] Medical Records Department [address] [place] [address] Instructions for Home/Discharge Instructions 06/12/24 1326 MR#: [id number] Acct: [id number] Name: JORGE COVINGTON Jeannette Rep #:[id number] : 1955 68 From: Juliana Shaw MD PCP: Dr. Brian Zimmerman MD Status:AD M IN Discharge Instructions Diet [...] Attending Provider: Juliana Shaw Primary Care Provider: Brian Zimmerman Instructions Patient Instructions: ED Bladder Infection, Male [...] Recorder Preventi (Urgent) Timeframe: 1 Day Facility: [facility] - Location: Cardiovascular Services Ordered By: Dr. Juliana Shaw Referrals / Follow Up: Brian Zimmerman MD [Primary Care Provider] - Disposition Disposition (needs filled in before D/C Order can be placed): Home Health Service 06/12/24 1332<Electronically signed by Juliana Shaw MD>Juliana Shaw MD CC: Dr. Brian Zimmerman MD ~ Signed [facility] Work Phone: Evaluation noteNo assessment information available [facility] Work Phone: Evaluation note* Diagnosis Onset Date Resolution Status Stage II pressure ulcer of sacral region acute [facility] Work Phone: Evaluation note* Diagnosis Onset Date Resolution Status Osteomyelitis of right side of pelvis acute Bedridden chronic Right ischial pressure sore, stage 4 chronic Smoker chronic Osteomyelitis of right side of pelvis acute Spinal cord injury acute Tobacco abuse acute Bedridden chronic Right ischial pressure sore, stage 4 chronic Smoker chronic [facility] Work Phone: Evaluation note* Diagnosis Onset Date [...] Right ischial pressure sore, stage 4 chronic [facility] Work Phone: evaluation note* Diagnosis Onset Date [...] pressure sore, stage 4 chronic Smoker chronic [facility] Work Phone: Evaluation note* Diagnosis Onset Date [...] pressure sore, stage 4 chronic Smoker chronic [facility] Work Phone: Evaluation note* Diagnosis Onset Date [...] pressure sore, stage 4 chronic Smoker chronic [facility] Work Phone: Evaluation note* Diagnosis Onset Date [...] pressure sore, stage 4 chronic Smoker chronic [facility] Work Phone: Evaluation note* Diagnosis Onset Date [...] pressure sore, stage 4 chronic Smoker chronic [facility] Work Phone: Evaluation note* Diagnosis Onset Date [...] fat layer exposed acute S/P colostomy acute [facility] Work Phone: Evaluation note* Diagnosis Onset Date [...] 4 chronic Smoker chronic S/P colostomy acute [facility] Work Phone: Evaluation note* Diagnosis Onset Date [...] pressure sore, stage 4 chronic Smoker chronic [facility] Work Phone: Evaluation note* Diagnosis Onset Date [...] pressure sore, stage 4 chronic Smoker chronic [facility] Work Phone: Evaluation note* Diagnosis Onset Date [...] pressure sore, stage 4 chronic Smoker chronic [facility] Work Phone: Evaluation note* Diagnosis Onset Date [...] pressure sore, stage 4 chronic Smoker chronic [facility] Work Phone: Evaluation note* Diagnosis Onset Date [...] pressure sore, stage 4 chronic Smoker chronic [facility] Work Phone: Evaluation note* Diagnosis Urinary retention- Primary Unspecified retention of urine [facility] Urinary retention- Primary Unspecified retention of urine [facility] Diagnosis Urinary retention- Primary Unspecified retention of urine Suprapubic catheter ([facility]/HCC) (HCC) Other cystostomy status [facility] Author Juliana Shaw [facility] Note Date/Time June 09, 2024 12: 16pm [facility] Medical Records Department [address] [place] [address] H&P Exam - Hospitalist 06/09/24 1206 MR#: [id number] Acct: [id number] Name: JORGE COVINGTON Rep #:[id number] : 1955 68 From: Juliana Shaw MD PCP: Dr. Brian Zimmerman MD Status:RE G ER Location: ED HPI - General General Date of Admission: 06/09/24 Date of Service: 06/09/24 Chief Complaint: Fever HPI Narrative JORGE COVINGTON, is a 68 M with history of paraplegia, COPD, hypothyroidism, chronic indwelling Benson who presented [facility] ED 06/09/2024 with 1 day of weakness, [...] some diarrhea but otherwise grider negative ROS. [facility] Medical History Other acute postprocedural pain Paraplegic [...] 85.9 H, Lymph % (Auto) 5.6 L, Kane % (Auto) 6.9, Eos % (Auto) 0.4, [...] Clarity Cloudy, Urine pH 7.0, Ur Specific [place] 1.010, Urine Protein 30 H, Urine Glucose [...] of scarring. Right apical scarring. Reading Location: [facility] Assessment & Plan Assessment/Plan (1) Complicated urinary [...] 57 Minutes Charges/Coding Visit Charges Inpatient E&M: 18478 Init Hosp L2 06/09/24 1216 <Electronically signed by Juliana Shaw MD> Cosigner Signature (if applicable): CC: Dr. Juliana Shaw MD; Dr. Brian Zimmerman MD~ Signed [facility] Work Phone: Hospital Discharge instructions Additional Instructions [...] worsening symptoms. Continue oxycodone as needed for pain.[facility] Work Phone: Reason for referral (narrative)No reason for referral information available[facility] Work Phone: Summary Purpose Family History No Family History Records Found Relationship Condition Age at Onset Recorded Date/T marguerite mother Cerebrovascular accident (CVA) Unknown Hypertension Unknown father Hypertension Unknown Malignant neoplasm of prostate Unknown Advance Directives No Advanced Directives Records Found Advance Directive Response Recorded Date/ Time Living Will Yes February 08, 022 11:04am Power of Career Services Representative Yes February 08, 2022 11:04am Name of Medical Power of Career Services Representative Kassandra, [facility], POA February 08, 2022 11:04am Advance Directive Response Recorded Date/ Time Name of Medical Power of Career Services Representative Kassandra, [facility], POA February 08, 2022 11:04am Living Will Yes February 08, 11:04am Power of Career Services Representative Yes February 08, 2022 11:04am Advance Directive Response Recorded Date/ Time Name of Medical Power of Career Services Representative [place], [place] [facility], [place] February 08, 2022 11:04am Name of Medical Power of Career Services Representative . April 28, 2022 5:34pm Living Will Yes April 28 5:34pm Power of Career Services Representative Yes April 28, 2022 5:34pm Advance Directive Response Recorded Date/ Time Name of Medical Power of Career Services Representative Kassandra, [facility], POA February 08, 2022 11:04am Name of Medical Power of Career Services Representative . April 28, 2022 5:34pm Living Will No May 02 12:05pm Power of Career Services Representative No May 02, 2022 12:05pm Advance Directive Response Recorded Date/ Time Name of Medical Power of Career Services Representative . April 28, 2022 6:34pm Living Will No June 16, 2022 9:22am Power of Career Services Representative No June 16 9:22am Advance Directive Response Recorded Date/ Time Living Will No June 16, 2022 9:22am Power of Career Services Representative No June 16 9:22am Advance Directive Response Recorded Date/ Time Living Will Yes October 13, 2022 10:42am Power of Career Services Representative Yes October 13 10:42am Advance Directive Response Recorded Date/ Time Name of Medical Power of Career Services Representative November 21, 2022 4:09pm Living Will Yes November 21 4:09pm Power of Career Services Representative Yes November 21, 023 4:09pm Advance Directive Response Recorded Date/ Time Name of Medical Power of Career Services Representative November 21, 2022 3:09pm Living Will Yes November 21 3:09pm Power of Career Services Representative Yes November 21, 2 023 3:09pm Advance Directive Response Recorded Date/ Time Living Will Yes November 21 3:09pm Power of Career Services Representative Yes November 21, 2 023 3:09pm Advance Directive Response Recorded Date/ Time Living Will Yes November 21 4:09pm Power of Career Services Representative Yes November 21, 2 023 4:09pm Date Activated Date Inactivated Comments 12/11/2023 12:03 PM 12/11/2023 5:19 PM Date Activated Date Inactivated Comments 12/11/2023 12:03 PM 12/11/2023 5:19 PM Advance Directive Response Recorded Date/ Time Living Will Yes August 26, 2023 3 :30pm Power of Career Services Representative Yes August 26, 2023 3:30pm Living Will Yes January 24 3:18pm Power of Career Services Representative Yes January 25, 2024 3:18pm Living Will Yes February 27 1:17am Power of Career Services Representative Yes February 28, 2024 1:17am Living Will Yes March 30 1:12am Power of Career Services Representative Yes March 30, 2 025 1:12am Living Will No June 09, 2024 9:05am Power of Career Services Representative No June 09 9:05am Living Will Yes April 30 1:37am Power of Career Services Representative Yes April 30, 2024 1:37am Living Will Yes May 28, 2024 2:49am Power of Career Services Representative Yes May 28 2:49am Advance Directive Response Recorded Date/ Time Living Will Yes August 26, 2023 3 :30pm Power of Career Services Representative Yes August 26, 2023 3:30pm Living Will Yes January 24 3:18pm Power of Career Services Representative Yes January 25, 2024 3:18pm Living Will Yes February 27 1:17am Power of Career Services Representative Yes February 28, 2024 1:17am Living Will Yes March 30 1:12am Power of Career Services Representative Yes March 30, 2 025 1:12am Living Will Yes June 09, 2024 2:13pm Power of Career Services Representative Yes June 09 2:13pm Name of Medical Power of Career Services Representative Dasia [place] , June 09, 2024 2:13pm Living Will Yes April 30 1:37am Power of Career Services Representative Yes April 30, 2024 1:37am Living Will Yes May 28, 2024 2:49am Power of Career Services Representative Yes May 28 2:49am Advance Directive Response Recorded Date/ Time Living Will Yes August 26, 2023 3 :30pm Do you have a Healthcare Pow er of Career Services Representative? Yes August 26, 2023 3:30pm Living Will Yes February 27 1:17am Do you have a Healthcare Pow er of Career Services Representative? Yes February 28, 2024 1:17am Living Will Yes March 30 1:12am Do you have a Healthcare Pow er of Career Services Representative? Yes March 30, 2024 1:12am Living Will Yes June 09, 2024 2:13pm Do you have a Healthcare Pow er of Career Services Representative? Yes June 09, 2024 2:13pm Name of Medical Power of Career Services Representative Dasia [place] , June 09, 2024 2:13pm Living Will Yes April 30 1:37am Do you have a Healthcare Pow er of Career Services Representative? Yes April 30, 2024 1:37am Living Will Yes May 28, 2024 2:49am Do you have a Healthcare Pow er of Career Services Representative? Yes May 28, 2024 2:49am Advance Directive Response Recorded Date/ Time Living Will Yes March 30 1:12am Do you have a Healthcare Pow er of Career Services Representative? Yes March 30, 2024 1:12am Living Will Yes June 09, 2024 2:13pm Do you have a Healthcare Pow er of Career Services Representative? Yes June 09, 2024 2:13pm Name of Medical Power of Career Services Representative Dasia [place] , June 09, 2024 2:13pm Do you have a Healthcare Pow er of Career Services Representative? Yes July 29, 2024 11:08pm Name of Medical Power of Career Services Representative Abraham [place] July 29, 2024 11:08pm Living Will Yes April 30 1:37am Do you have a Healthcare Pow er of Career Services Representative? Yes April 30, 2024 1:37am Living Will Yes May 28, 2024 2:49am Do you have a Healthcare Pow er of Career Services Representative? Yes May 28, 2024 2:49am Living Will Yes June 28, 2024 12:51am Do you have a Healthcare Pow er of Career Services Representative? Yes June 28, 2024 12:51am Do you have a Healthcare Pow er of Career Services Representative? No August 02, 2024 10:57am Advance Directive Response Recorded Date/ Time Living Will Yes June 09, 2024 2:13pm Do you have a Healthcare Pow er of Career Services Representative? Yes June 09, 2024 2:13pm Name of Medical Power of Career Services Representative Dasia [place] , June 09, 2024 2:13pm Do you have a Healthcare Pow er of Career Services Representative? Yes July 29, 2024 11:08pm Name of Medical Power of Career Services Representative Abraham [place] July 29, 2024 11:08pm Do you have a Healthcare Pow er of Career Services Representative? No August 07, 2024 5:53pm Living Will Yes April 30 1:37am Do you have a Healthcare Pow er of Career Services Representative? Yes April 30, 2024 1:37am Living Will Yes May 28, 2024 2:49am Do you have a Healthcare Pow er of Career Services Representative? Yes May 28, 2024 2:49am Living Will Yes June 28, 2024 12:51am Do you have a Healthcare Pow er of Career Services Representative? Yes June 28, 2024 12:51am Do you have a Healthcare Pow er of Career Services Representative? No August 02, 2024 10:57am Advance Directive Response Recorded Date/ Time Living Will Yes June 09, 2024 2:13pm Do you have a Healthcare Pow er of Career Services Representative? Yes June 09, 2024 2:13pm Name of Medical Power of Career Services Representative Dasia [place] , June 09, 2024 2:13pm Living Will Yes July 28, 2024 12 :38am Do you have a Healthcare Pow er of Career Services Representative? Yes July 28, 2024 12:38am Do you have a Healthcare Pow er of Career Services Representative? Yes July 29, 2024 11:08pm Name of Medical Power of Career Services Representative Abraham [place] July 29, 2024 11:08pm Do you have a Healthcare Pow er of Career Services Representative? No August 07, 2024 5:53pm Living Will Yes May 28, 2024 2:49am Do you have a Healthcare Pow er of Career Services Representative? Yes May 28, 2024 2:49am Living Will Yes June 28, 2024 12:51am Do you have a Healthcare Pow er of Career Services Representative? Yes June 28, 2024 12:51am Do you have a Healthcare Pow er of Career Services Representative? No August 02, 2024 10:57am Hospital Course Note HNO ID: [id number] Author: Eliseo Romo Service: ? Author Type: [...] (more content not included)... Note HNO ID: [id number] Author: Aparna Mason) Pawel Service: Anesthesiology Author Type: Nurse Loss Mitigation Specialist Type: Procedures Filed: 01/22/2019 11:43 PM Note Text: INTUBATION PROCEDURE NOTE PROCEDURE DATE: January 22, 2019 PROCEDURE START TIME: 2329 PROCEDURE: OROTRACHEAL INTUBATION PRIMARY PROCEDURALIST: Dank Armas APRN.NOELLE AVIATION PROJECT ENGINEER(S): None INFORMED CONSENT: Due to emergent situation [...] not included)... Procedure Findings Note HNO ID: [id number] Author: Aparna huston (Noelle) Pawel Service: Anesthesiology Author Type: Nurse Loss Mitigation Specialist Type: Procedures Filed: 01/22/2019 11:43 PM Note Text: INTUBATION PROCEDURE NOTE PROCEDURE DATE: January 22, 2019 PROCEDURE START TIME: 2329 PROCEDURE: OROTRACHEAL INTUBATION PRIMARY PROCEDURALIST: Dank Armas APRN.CRNA AVIATION PROJECT ENGINEER(S): None INFORMED CONSENT: Due to emergent situation [...] 2024 2:28 pm COMPLICATED URINARY TRACT INFECTION [facility] 2024 12:06pm Reason for Visit Admit Date Right ischial pressure sore January 2:53pm Right ischial pressure sore, stage 4 Jan 2:53pm Right ischial pressure sore February 3:09pm Right ischial pressure sore, stage 4 Feb 3:09pm Right ischial pressure sore April 04, 2024 3:36pm Right ischial pressure sore, stage 4 [facility] 2024 3:36pm Right ischial pressure sore April 2:52pm Right ischial pressure sore, stage 4 b ruary 2024 2:52pm Right ischial pressure sore May 30, 2 025 3:13pm Right ischial pressure sore, stage 4 May 2024 3:13pm Cervical myelopathy June 03, 2024 2:01 pm Fusion of spine, cervical region June 032024 2:01pm Thoracic myelopathy June 03, 2024 2:01 pm Acidosis, lactic June 09, 2024 12: 06pm Colostomy in place June 09, 2024 12: 06pm Complicated urinary tract infection [facility] 2024 12:06pm Decubitus ulcer of right buttock, [...] 2:28 pm COMPLICATED URINARY TRACT INFECTION [facility] 2024 12:06pm COMPLICATED URINARY TRACT INFECTION [facility] 2024 8:59am COMPLICATED URINARY TRACT INFECTION [facility] 2024 12:42pm Chief Complaint Admit Date wound [...] 2:28 pm COMPLICATED URINARY TRACT INFECTION [facility] 2024 12:06pm COMPLICATED URINARY TRACT INFECTION [facility] [...] 3:30pm Right ischial pressure sore, stage 4 [facility] 2024 3:30pm Chief Complaint Admit Date wound [...] Right ischial pressure sore, stage 4 [place] 2024 2:52pm Cervical myelopathy June 03, 2024 [...] 2024 8:59am COMPLICATED URINARY TRACT INFECTION [facility] 2024 12:42pm COMPLICATED URINARY TRACT INFECTION [facility] [...] URINARY TRACT INFECTION [facility] 2024 1:32pm DAY MONITOR June 22, 2024 8:0 0am [...] Thoracic myelopathy September 16, 2024 2:45 pm Chief Complaint Admit Date COMPLICATED URINARY TRACT INFECTION [facility] 2024 12:06pm COMPLICATED URINARY TRACT INFECTION [facility] 2024 8:59am COMPLICATED URINARY TRACT INFECTION [facility] 2024 12:42pm COMPLICATED URINARY TRACT INFECTION [facility] 2024 1:32pm DAY MONITOR June 22, 2024 8:0 0am [...] 2:45 pm Reason for Visit Admit Date Decubitus ulcer of right buttock, stage 3 June 09, 2024 12:06pm Bedridden June 09, 2024 12: 06pm Acidosis, lactic June 09, 2024 12: 06pm Complicated urinary tract infection [facility] 2024 12:06pm Leukocytosis June 09, 2024 12: [...] Thoracic myelopathy September 16, 2024 2:45 pm Chief Complaint Admit Date COMPLICATED URINARY TRACT INFECTION [facility] 2024 12:06pm COMPLICATED URINARY TRACT INFECTION [facility] [...] CERVICAL SPINE September 16, 2024 2:45 pm wound October 03, 2024 3:20p m Additional Source Comments (unrecognized sect ion and content) No Status Records FoundNo Status Records FoundNo Status Records FoundNo Status Records FoundNo Status Records FoundNo Status Records Found INFORMATION SOURCE (unrecogn ized section and content) DATE CREATED AUTHOR 06/25/2018 [facility] DATE CREATED AUTHOR AUTHOR'S ORGANIZ ATION 06/25/2018 [facility] [facility] DATE CREATED AUTHOR AUTHOR'S ORGANIZ ATION 02/03/2019 [facility] DATE CREATED AUTHOR AUTHOR'S ORGANIZ ATION 05/06/2021 [facility] DATE CREATED AUTHOR AUTHOR'S ORGANIZ ATION 09/28/2024 [facility] DATE CREATED AUTHOR AUTHOR'S ORGANIZ ATION 10/06/2024 [facility] Goals (unrecognized section and content) Goals may [...] Status: Active Member Role Status Dates Dr. Brian Zimmerman MD Primary Care Provider Active Team Status: Active Member Role Status Dates Dr. Brian Zimmerman MD Primary Care Provider Active Start: May 02, 2024 Kemi Rubio LABEL PRINTER, LABEL PRINTER-C Other Provider Active Start: May 02, 2024 Dr. Luca Nayak MD Attending Provider Active Start: May 02, 2024 Dr. Luca Nayak MD Referring Provider Active Start: May 02, 2024 Team Status: Inactive Member Role Status Dates CARLOS Jauregui Referring Provider Active Star t: May 02, 2024 End: May 27, 2024 Dr. Brian Zimmerman MD Primary Care Provider Active Start: May 02, 2024 End: May 27, 2024 Kemi Rubio LABEL PRINTER, LABEL PRINTER-C Attending Provider Active Start: May 02, 2024 End: May 27, 2024 Team Status: Active Member Role Status Dates Dr. Brian Zimmerman MD Primary Care Provider Active Start: May 30, 2024 Dr. Luca Nayak MD Attending Provider Active Start: May 30, 2024 Dr. Luca Nayak MD Referring Provider Active Start: May 30, 2024 Dr. Luca Nayak MD Other Provider Active Star t: May 30, 2024 Team Status: Inactive Member Role Status Dates Dr. Brian Zimmerman MD Primary Care Provider Active Start: June 03, 2024 End: June 03, 2024 Dr. Brian Zimmerman MD Referring Provider Active Start: June 03, 2024 End: June 03, 2024 Dr. Edmundo Quevedo MD Attending Provider Active Start: June 03, 2024 End: June 03, 2024 Team Status: Inactive Member Role Status Dates Dr. Brian Zimmerman MD Primary Care Provider Active Start: June 03, 2024 End: June 03, 2024 Dr. Alex Mancera MD Attending Provider Active S tart: June 03, 2024 End: June 03, 2024 Team Status: Inactive Member Role Status Dates Dr. Brian Zimmerman MD Primary Care Provider Active Start: June [...] Status: Active Member Role Status Dates Dr. Brian Zimmerman MD Primary Care Provider Active Start: June [...] Status: Active Member Role Status Dates Dr. Brian Zimmerman MD Primary Care Provider Active Start: June [...] Status: Active Member Role Status Dates Dr. Brian Zimmerman MD Primary Care Provider Active Start: June [...] Status: Active Member Role Status Dates Dr. Brian Zimmerman MD Primary Care Provider Active Start: June 22, 2024 Dr. Juliana Shaw MD Attending Provider Active Start: June 22, 2024 Dr. Juliana Shaw MD Referring Provider Active Start: June 22, 2024 Team Status: Inactive Member Role Status Dates CARLOS Jauregui Referring Provider Active Star t: June 27, 2024 End: June 27, 2024 Dr. Brian Zimmerman MD Primary Care Provider Active Start: June 27, 2024 End: June 27, 2024 Dr. Luca Nayak MD Attending Provider Active Start: June 27, 2024 End: June 27, 2024 Team Status: Active Member Role Status Dates CARLOS Jauregui Referring Provider Active Star t: June 27, 2024 Dr. Brian Zimmerman MD Primary Care Provider Active Start: June 27, 2024 Dr. Luca Nayak MD Attending Provider Active Start: June 27, 2024 Dr. Luca Nayak MD Other Provider Active Star t: June 27, 2024 Team Status: Inactive Member Role Status Dates Dr. Brian Zimmerman MD Primary Care Provider Active Start: July 11, 2024 End: July 11, 2024 Dr. Brian Zimmerman MD Attending Provider Active Start: July 11, 2024 End: July 11, 2024 Dr. Brian Zimmerman MD Referring Provider Active Start: July 11, 2024 End: July 11, 2024 Team Status: Inactive Member Role Status Dates CARLOS Jauregui Referring Provider Active Star t: July 25, 2024 End: July 27, 2024 Dr. Brian Zimmerman MD Primary Care Provider Active Start: July 25, 2024 End: July 27, 2024 Dr. Luca Nayak MD Attending Provider Active Start: July 25, 2024 End: July 27, 2024 Team Status: Active Member Role Status Dates CARLOS Jauregui Referring Provider Active Star t: July 26, 2024 Dr. Brian Zimmerman MD Primary Care Provider Active Start: July 26, 2024 Dr. Luca Nayak MD Attending Provider Active Start: July 26, 2024 Dr. Luca Nayak MD Other Provider Active Star t: July 26, 2024 Team Status: Inactive Member Role Status Dates Dr. Brian Zimmerman MD Primary Care Provider Active Start: July [...] Status: Active Member Role Status Dates Dr. Brian Zimmerman MD Primary Care Provider Active Start: July [...] Status: Active Member Role Status Dates Dr. Brian Zimmerman MD Primary Care Provider Active Start: July [...] Status: Active Member Role Status Dates Dr. Brian Zimmerman MD Primary Care Provider Active Start: August [...] Status: Inactive Member Role Status Dates Dr. Brian Zimmerman MD Primary Care Provider Active Start: August 02, 2024 End: August 02, 2024 Dr. Hebert Saavedra MD Attending Provider Active Sta rt: August 02, 2024 End: August 02, 2024 Dr. Hebert Saavedra MD Emergency Provider Active Sta rt: August 02, 2024 End: August 02, 2024 Team Status: Inactive Member Role Status Dates Dr. Brian Zimmerman MD Primary Care Provider Active Start: August 07, 2024 End: August 07, 2024 Dr. Kit Harris MD Emergency Provider Active Start: August 07, 2024 End: August 07, 2024 Team Status: Inactive Member Role Status Dates CARLOS Jauregui Referring Provider Active Star t: February 24, 2024 End: February 27, 2024 Dr. Brian Zimmerman MD Primary Care Provider Active Start: February 24, 2024 End: February 27, 2024 Dr. Luca Nayak MD Attending Provider Active Start: February 24, 2024 End: February 27, 2024 Team Status: Active Member Role Status Dates Dr. Brian Zimmerman MD Primary Care Provider Active Start: February 24, 2024 Dr. Luca Nayak MD Other Provider Active Star t: February 24, 2024 Kemi Rubio LABEL PRINTER, LABEL PRINTER-C Attending Provider Active Start: February 24, 2024 Kemi Rubio LABEL PRINTER, LABEL PRINTER-C Referring Provider Active Start: February 24, 2024 Team Status: Inactive Member Role Status Dates CARLOS Jauregui Referring Provider Active Star t: March 21, 2024 End: March 29, 2024 Dr. Brian Zimmerman MD Primary Care Provider Active Start: March 21, 2024 End: March 29, 2024 Kemi Rubio LABEL PRINTER, LABEL PRINTER-C Attending Provider Active Start: March 21, 2024 End: March 29, 2024 Team Status: Active Member Role Status Dates Dr. Brian Zimmerman MD Primary Care Provider Active Start: March 21, 2024 Kemi Rubio LABEL PRINTER, LABEL PRINTER-C Other Provider Active Start: March 21, 2024 Dr. Luca Nayak MD Attending Provider Active Start: March 21, 2024 Dr. Luca Nayak MD Referring Provider Active Start: March 21, 2024 Team Status: Inactive Member Role Status Dates Dr. Brian Zimmerman MD Primary Care Provider Active Start: March 24, 2024 End: March 24, 2024 Dr. Brian Zimmerman MD Referring Provider Active Start: March 24, 2024 End: March 24, 2024 Kemi Rubio LABEL PRINTER, LABEL PRINTER-C Attending Provider Active Start: March 24, 2024 End: March 24, 2024 Team Status: Inactive Member Role Status Dates CARLOS Jauregui Referring Provider Active Star t: April 04, 2024 End: April 29, 2024 Dr. Brian Zimmerman MD Primary Care Provider Active Start: April 04, 2024 End: April 29, 2024 Kemi Rubio LABEL PRINTER, LABEL PRINTER-C Attending Provider Active Start: April 04, 2024 End: April 29, 2024 Team Status: Active Member Role Status Dates Dr. Brian Zimmerman MD Primary Care Provider Active Start: April 04, 2024 Kemi Rubio LABEL PRINTER, LABEL PRINTER-C Other Provider Active Start: April 04, 2024 Dr. Luca Nayak MD Attending Provider Active Start: April 04, 2024 Dr. Luca Nayak MD Referring Provider Active Start: April 04, 2024 Team Status: Active Member Role Status Dates CARLOS Jauregui Referring Provider Active Star t: May 30, 2024 Dr. Brian Zimmerman MD Primary Care Provider Active Start: May 30, 2024 Dr. Luca Nayak MD Attending Provider Active Start: May 30, 2024 Team Status: Active Member Role Status Dates CARLOS Jauregui Referring Provider Active Star t: May 30, 2024 Dr. Brian Zimmerman MD Primary Care Provider Active Start: May 30, 2024 Dr. Luca Nayak MD Attending Provider Active Start: May 30, 2024 Dr. Luca Nayak MD Other Provider Active Star t: May 30, 2024 Team Status: Active Member Role Status Dates Dr. Brian Zimmerman MD Primary Care Provider Active Start: June 09, 2024 Dr. Hebert Saavedra MD Emergency Provider Active Sta rt: June 09, 2024 Dr. Juliana Shaw MD Admit Provider Active Star t: June 09, 2024 Dr. Juliana Shaw MD Attending Provider Active Start: June 09, 2024 Team Status: Active Member Role Status Dates Kemi Rubio LABEL PRINTER, LABEL PRINTER-C Attending Pro vider, Referring Provider, Other Provider Active No Primary Care Physician Primary Care Provider Active Team Status: Active Member Role Status Dates Dr. Brian Zimmerman MD Primary Care Provider Active Dr. Chas Paiz MD Attending Provider Active Dr. Kari Romero MD Referring Provider Active Team Status: Active Member Role Status Dates Dr. Kari Romero MD Attending Provide r, Referring Provider, Other Provider Active Dr. Brian Zimmerman MD Primary Care Provider Active Team Status: Active Member Role Status Dates Dr. Kari Romero MD Admit Provider, R eferring Provider, Other Provider Active Dr. Brian Zimmerman MD Primary Care Provider Active Dr. Nakita Arroyo MD Attending Provider Active Team Status: Active Member Role Status Dates Dr. Kari Romero MD Admit Provider, A ttending Provider, Referring Provider, Other Provider Active Dr. Brian Zimmerman MD Primary Care Provider Active Team Status: Active Member Role Status Dates Kemi Rubio LABEL PRINTER, LABEL PRINTER-C Attending Pro vider, Referring Provider, Other Provider Active Dr. Brian Zimmerman MD Primary Care Provider Active Team Status: Inactive Member Role Status Dates Dr. Brian Zimmerman MD Primary Care Provider, Referr ing Provider Active Dr. Kari Romero MD Attending Provider Active Team Status: Inactive Member Role Status Dates Dr. Kari Romero MD Admit Provider, A ttending Provider, Referring Provider Active Dr. Brian Zimmerman MD Primary Care Provider Active Team Status: Inactive Member Role Status Dates CARLOS Jauregui Referring Provider Active Kemi Rubio LABEL PRINTER, LABEL PRINTER-C Attending Provider Active No Primary Care Physician Primary Care Provider Active Team Status: Inactive Member Role Status Dates CARLOS Jauregui Referring Provider Active Kemi Rubio LABEL PRINTER, LABEL PRINTER-C Attending Provider Active Dr. Brian Zimmerman MD Primary Care Provider Active Team Status: Inactive Member Role Status Dates No Primary Care Physician Primary Care Provider, Refer ring Provider Active Dr. Kari Romero MD Attending Provider Active Team Status: Inactive Member Role Status Dates CARLOS Orozco Referring Provider Active Kemi Rubio LABEL PRINTER, LABEL PRINTER-C Attending Provider Active No Primary Care Physician Primary Care Provider Active Team Status: Active Member Role Status Dates No Primary Care Physician Primary Care Provider Active Team Status: Active Member Role Status Dates Dr. Brian Zimmerman MD Primary Care Provider Active CARLOS Orozco Referring Provider Active Kemi Rubio LABEL PRINTER, LABEL PRINTER-C Attending Provider, Other P rovider Active Team Status: Active Member Role Status Dates Dr. Kari Romero MD Attending Provider, Other Provi inge Active No Primary Care Physician Primary Care Provider, Refer ring Provider Active Team Status: Active Member Role Status Dates Cristy Biedenharn , PA Referring Provider Active Kemi Rubio LABEL PRINTER, LABEL PRINTER-C Attending Provider, Other P rovider Active No Primary Care Physician Primary Care Provider Active Team Status: Inactive Member Role Status Dates Dr. Brian Zimmerman MD Primary Care Provider Active Cristy Bisivakumar , PA Referring Provider Active Kemi Rubio LABEL PRINTER, LABEL PRINTER-C Attending Provider Active Team Status: Inactive Member Role Status Dates Dr. Kari Romero MD Attending Provider Active No Primary Care Physician Primary Care Provider, Refer ring Provider Active Team Status: Active Member Role Status Dates Dr. Brian Zimmerman MD Primary Care Provider Active Dr. Popeye Messina MD Admit Provider, A ttending Provider, Referring Provider, Other Provider Active Dr. Kari Romero MD Other Provider Active Team Status: Inactive Member Role Status Dates Dr. Brian Zimmerman MD Primary Care Provider Active Dr. Ted Singh DO Attending Provider, Emergency Provide r Active Team Status: Active Member Role Status Dates Dr. Brian Zimmerman MD Primary Care Provider Active Cristy Luci PA, PA Attending Prov ider, Referring Provider, Other Provider Active Team Status: Active Member Role Status Dates Dr. Brian Zimmerman MD Primary Care Provider Active Cristy GONZALEZ, PA Other Provider Active Dr. Popeye Messina MD Attending Provider, Referring P rovider Active Team Status: Active Member Role Status Dates Dr. Brian Zimmerman MD Primary Care Provider Active Dr. Popeye Messina MD Attending Provide r, Referring Provider, Other Provider Active Team Status: Active Member Role Status Dates Dr. Brian Zimmerman MD Primary Care Provider Active Dr. Popeye Messina MD Admit Provider, R eferring Provider, Other Provider Active Dr. Kari Romero MD Attending Provider, Other Provi inge Active Team Status: Active Member Role Status Dates Dr. Brian Zimmerman MD Primary Care Provider Active Dr. Popeye Messina MD Admit Provider, R eferring Provider, Other Provider Active Dr. Kari Romero MD Other Provider Active Kemi Rubio LABEL PRINTER, LABEL PRINTER-C Attending Provider Active Team Status: Inactive Member Role Status Dates Dr. Brian Zimmerman MD Primary Care Provider Active Dr. Basilio Basurto DO Attending Provider, Emergency P rovider Active Team Status: Inactive Member Role Status Dates Dr. Brian Zimmerman MD Primary Care Provider Active Cristy Biedenharn PA, PA Attending Provider, Referrin g Provider Active Team Status: Active Member Role Status Dates Dr. Brian Zimmerman MD Primary Care Provider Active Dr. Popeye Messina MD Admit Provider, A ttending Provider, Referring Provider Active Dr. Kari Romero MD Other Provider Active Team Status: Inactive Member Role Status Dates Dr. Brian Zimmerman MD Primary Care Provider Active Dr. Popeye Messina MD Admit Provider, A ttending Provider, Referring Provider Active Dr. Kari Romero MD Other Provider Active Team Status: Inactive Member Role Status Dates Dr. Brian Zimmerman MD Primary Care Provider Active Dr. Ted Singh DO Emergency Provider Active Team Status: Active Member Role Status Dates Dr. Brian Zimmerman MD Primary Care Provider Active Dr. Deshawn Mason MD Attending Provider Activ e Dr. Popeye Messina MD Referring Provider Active Team Status: Active Member Role Status Dates Dr. Brian Zimmerman MD Primary Care Provider Active Cristy Verma PA, PA Referring Provider Active Kemigriselda Workmanell LABEL PRINTER, LABEL PRINTER-C Attending Provider, Other P rovider Active Team Status: Inactive Member Role Status Dates Dr. Brian Zimmerman MD Primary Care Provider Active Cristy Biadebayoenharn PA, PA Referring Provider Active Kemi Kia EarlyRamiro LABEL PRINTER, LABEL PRINTER-C Attending Provider Active Team Status: Active Member Role Status Dates Dr. Brian Zimmerman MD Primary Care Provider Active Cristy Bonifacioenharn PA, PA Referring Provider Active Kemi Kia EarlyRamiro LABEL PRINTER, LABEL PRINTER-C Attending Provider Active Team Status: Active Member Role Status Dates Cristy Valdovinosenharn PA, PA Referring Provider Active Kemi E Ramiro LABEL PRINTER, LABEL PRINTER-C Attending Provider, Other P rovider Active No Primary Care Physician Primary Care Provider Active Team Status: Inactive Member Role Status Dates Cristy Biadebayoenharn PA, PA Referring Provider Active Kemi E Ramiro LABEL PRINTER, LABEL PRINTER-C Attending Provider Active No Primary Care Physician Primary Care Provider Active Team Status: Active Member Role Status Dates Cristy Biadebayoenharn , PA Referring Provider Active Kemi E Ramiro LABEL PRINTER, LABEL PRINTER-C Attending Provider Active No Primary Care Physician Primary Care Provider Active Team Status: Active Member Role Status Dates Cristy Bearden PA Referring Provider Active Kemi E Ramiro LABEL PRINTER, LABEL PRINTER-C Attending Provider, Other P rovider Active Dr. Brian Zimmerman MD Primary Care Provider Active Team Status: Inactive Member Role Status Dates Dr. Brian Zimmerman MD Primary Care Pr ovider, Attending Provider, Referring Provider Active Team Status: Active Member Role Status Dates CARLOS Jauregui Referring Provider Active Kemi Rubio LABEL PRINTER, LABEL PRINTER-C Attending Provider Active Dr. Brian Zimmerman MD Primary Care Provider Active [employer] Relationship Specialty Start Date End Date Brian Zimmerman MD [address] [place] [phone] PCP - General Family Medicine 03/06/23 Team Status: Active Member Role Status Dates Kemi Rubio LABEL PRINTER, LABEL PRINTER-C Other Provider Active Dr. Brian Zimmerman MD Primary Care Provider Active Dr. Popeye Messina MD Attending Provider, Referring P rovider Active Team Status: Inactive Member Role Status Dates Dr. Brian Zimmerman MD Primary Care Provider, Referr ing Provider Active Rod GONZALEZ, PA Attending Provider Active [employer] Relationship Specialty Start Date End Date Brian Zimmerman MD [address] [place] [phone] PCP - General Family Medicine 03/06/23 Zackery Carmona MD [address] [address] Surgeon Urology 08/19/23 [employer]razer Relationship Specialty Start Date End Date Brian Zimmerman MD [address] [place] [phone] PCP - General Family Medicine 03/06/23 Zackery Carmona MD [address] [address] Surgeon Urology 08/19/23 [employer]razer Relationship Specialty Start Date End Date Brian Zimmerman MD [address] [place] [phone] PCP - General Family Medicine 03/06/23 Zackery Carmona MD 201 [facility] [address] [place] [address] Surgeon Urology 08/19/23 [employer]razer Relationship Specialty Start Date End Date Brian Zimmerman MD [address] [place] [phone] PCP - General Family Medicine 03/06/23 Zackery Carmona MD [address] [address] Surgeon Urology 08/19/23 Rikki Casas MD 95 [facility] [address] [place] [phone] Surgeon Urology 10/23/23 [employer]razer Relationship Specialty Start Date End Date Brian Zimmerman MD [address] [place] [phone] PCP - General Family Medicine 03/06/23 Zackery Carmona MD [address] [address] Surgeon Urology 08/19/23 Rikki Casas MD 95 [facility] [address] [place] [phone] Surgeon Urology 10/23/23 [employer]er Relationship Specialty Start Date End Date Brian Zimmerman MD [address] [place] [phone] PCP - General Family Medicine 03/06/23 Zackery Carmona MD [address] [place] [address] Surgeon Urology 08/19/23 Rikki Casas MD [address] [place] [phone] Surgeon Urology 10/23/23 [employer]razer Relationship Specialty Start Date End Date Brian Zimmerman MD [address] [place] [phone] PCP - General Family Medicine 03/06/23 Zackery Carmona MD [address] [place] [address] Surgeon Urology 08/19/23 Rikki Casas MD [address] [place] [phone] Surgeon Urology 10/23/23 [employer]er Relationship Specialty Start Date End Date Brian Zimmerman MD [address] [place] [phone] PCP - General Family Medicine 03/06/23 Zackery Carmona MD [address] [place] [address] Surgeon Urology 08/19/23 Rikki Casas MD [address] [place] [address] Surgeon Urology 10/23/23 [employer]er Relationship Specialty Start Date End Date Brian Zimmerman MD [address] [place] [phone] PCP - General Family Medicine 03/06/23 Zackery Carmona MD [address] [place] [address] Surgeon Urology 08/19/23 Rikki Casas MD [address] [place] [phone] Surgeon Urology 10/23/23 [employer]er Relationship Specialty Start Date End Date Brian Zimmerman MD [address] [place] [phone] PCP - General Family Medicine 03/06/23 Zackery Carmona MD [address] [place] [address] Surgeon Urology 08/19/23 Rikki Casas MD [address] [place] [phone] Surgeon Urology 10/23/23 Team Status: Active Member Role Status Dates Dr. Brian Zimmerman MD Primary Care Provider Active Start: July [...] Status: Active Member Role Status Dates Dr. Brian Zimmerman MD Primary Care Provider Active Start: August [...] Status: Inactive Member Role Status Dates Dr. Brian Zimmerman MD Primary Care Provider Active Start: August 02, 2024 End: August 02, 2024 Dr. Hebert Saavedra MD Emergency Provider Active Sta rt: August 02, 2024 End: August 02, 2024 Team Status: Active Member Role Status Dates Dr. Brian Zimmerman MD Primary Care Provider Active Start: June 22, 2024 Dr. Alex Mancera MD Attending Provider Active S tart: June 22, 2024 Dr. Juliana Shaw MD Referring Provider Active Start: June 22, 2024 Team Status: Active Member Role Status Dates Dr. Brian Zimmerman MD Primary Care Provider Active Start: July 25, 2024 Dr. Luca Nayak MD Attending Provider Active Start: July 25, 2024 Dr. Luca Nayak MD Referring Provider Active Start: July 25, 2024 Dr. Luca Nayak MD Other Provider Active Star t: July 25, 2024 Team Status: Inactive Member Role Status Dates Dr. Brian Zimmerman MD Primary Care Provider Active Start: August 07, 2024 End: August 07, 2024 Dr. Kit Harris MD Attending Provider Active Start: August 07, 2024 End: August 07, 2024 Dr. Kit Harris MD Emergency Provider Active Start: August 07, 2024 End: August 07, 2024 Team Status: Active Member Role Status Dates CARLOS Jauregui Referring Provider Active Star t: August 29, 2024 Dr. Brian Zimmerman MD Primary Care Provider Active Start: August 29, 2024 Dr. Luca Nayak MD Attending Provider Active Start: August 29, 2024 Team Status: Active Member Role Status Dates CARLOS Jauregui Referring Provider Active Star t: August 29, 2024 Dr. Brian Zimmerman MD Primary Care Provider Active Start: August 29, 2024 Dr. Luca Nayak MD Attending Provider Active Start: August 29, 2024 Dr. Luca Nayak MD Other Provider Active Star t: August 29, 2024 Team Status: Inactive Member Role Status Dates Dr. Brian Zimmerman MD Primary Care Provider Active Start: September 16, 2024 End: September 16, 2024 Dr. Brian Zimmerman MD Referring Provider Active Start: September 16, 2024 End: September 16, 2024 Dr. Edmundo Quevedo MD Attending Provider Active Start: September 16, 2024 End: September 16, 2024 Team Status: Active Member Role/Relationship Status Dates Dr. Brian Zimmerman MD Primary Care Provider Active Team Status: Active Member Role/Relationship Status Dates Dr. Brian Zimmerman MD Primary Care Provider Active Start: May 30, 2024 Dr. Luca Nayak MD Attending Provider Active Start: May 30, 2024 Dr. Luca Nayak MD Referring Provider Active Start: May 30, 2024 Dr. Luca Nayak MD Other Provider Active Star t: May 30, 2024 Team Status: Inactive Member Role/Relationship Status Dates Dr. Brian Zimmerman MD Primary Care Provider Active Start: June 03, 2024 End: June 03, 2024 Dr. Brian Zimmerman MD Referring Provider Active Start: June 03, 2024 End: June 03, 2024 Dr. Edmundo Quevedo MD Attending Provider Active Start: June 03, 2024 End: June 03, 2024 Team Status: Inactive Member Role/Relationship Status Dates Dr. Brian Zimmerman MD Primary Care Provider Active Start: June 03, 2024 End: June 03, 2024 Dr. Alex Mancera MD Attending Provider Active S tart: June 03, 2024 End: June 03, 2024 Team Status: Inactive Member Role/Relationship Status Dates Dr. Brian Zimmerman MD Primary Care Provider Active Start: June [...] Status: Active Member Role/Relationship Status Dates Dr. Brian Zimmerman MD Primary Care Provider Active Start: June [...] Status: Active Member Role/Relationship Status Dates Dr. Brian Zimmerman MD Primary Care Provider Active Start: June [...] Status: Active Member Role/Relationship Status Dates Dr. Brian Zimmerman MD Primary Care Provider Active Start: June [...] Status: Active Member Role/Relationship Status Dates Dr. Brian Zimmerman MD Primary Care Provider Active Start: June 22, 2024 Dr. Alex Mancera MD Attending Provider Active S tart: June 22, 2024 Dr. Juliana Shaw MD Referring Provider Active Start: June 22, 2024 Team Status: Active Member Role/Relationship Status Dates Dr. Brian Zimmerman MD Primary Care Provider Active Start: June 22, 2024 Dr. Juliana Shaw MD Attending Provider Active Start: June 22, 2024 Dr. Juliana Shaw MD Referring Provider Active Start: June 22, 2024 Team Status: Inactive Member Role/Relationship Status Dates CARLOS Jauregui Referring Provider Active Star t: June 27, 2024 End: June 27, 2024 Dr. Brian Zimmerman MD Primary Care Provider Active Start: June 27, 2024 End: June 27, 2024 Dr. Luca Nayak MD Attending Provider Active Start: June 27, 2024 End: June 27, 2024 Team Status: Active Member Role/Relationship Status Dates CARLOS Jauregui Referring Provider Active Star t: June 27, 2024 Dr. Brian Zimmerman MD Primary Care Provider Active Start: June 27, 2024 Dr. Luca Nayak MD Attending Provider Active Start: June 27, 2024 Dr. Luca Nayak MD Other Provider Active Star t: June 27, 2024 Team Status: Inactive Member Role/Relationship Status Dates Dr. Brian Zimmerman MD Primary Care Provider Active Start: July 11, 2024 End: July 11, 2024 Dr. Brian Zimmerman MD Attending Provider Active Start: July 11, 2024 End: July 11, 2024 Dr. Brian Zimmerman MD Referring Provider Active Start: July 11, 2024 End: July 11, 2024 Team Status: Inactive Member Role/Relationship Status Dates CARLOS Jauregui Referring Provider Active Star t: July 25, 2024 End: July 27, 2024 Dr. Brian Zimmerman MD Primary Care Provider Active Start: July 25, 2024 End: July 27, 2024 Dr. Luca Nayak MD Attending Provider Active Start: July 25, 2024 End: July 27, 2024 Team Status: Active Member Role/Relationship Status Dates Dr. Brian Zimmerman MD Primary Care Provider Active Start: July 25, 2024 Dr. Luca Nayak MD Attending Provider Active Start: July 25, 2024 Dr. Luca Nayak MD Referring Provider Active Start: July 25, 2024 Dr. Luca Nayak MD Other Provider Active Star t: July 25, 2024 Team Status: Inactive Member Role/Relationship Status Dates Dr. Brian Zimmerman MD Primary Care Provider Active Start: July [...] Status: Active Member Role/Relationship Status Dates Dr. Brian Zimmerman MD Primary Care Provider Active Start: July [...] Status: Active Member Role/Relationship Status Dates Dr. Brian Zimmerman MD Primary Care Provider Active Start: July [...] Status: Active Member Role/Relationship Status Dates Dr. Brian Zimmerman MD Primary Care Provider Active Start: August [...] Status: Inactive Member Role/Relationship Status Dates Dr. Brian Zimmerman MD Primary Care Provider Active Start: August 02, 2024 End: August 02, 2024 Dr. Hebert Saavedra MD Attending Provider Active Sta rt: August 02, 2024 End: August 02, 2024 Dr. Hebert Saavedra MD Emergency Provider Active Sta rt: August 02, 2024 End: August 02, 2024 Team Status: Inactive Member Role/Relationship Status Dates Dr. Brian Zimmerman MD Primary Care Provider Active Start: August [...] 29, 2024 End: September 26, 2024 Dr. Brian Zimmerman MD Primary Care Provider Active Start: August 29, 2024 End: September 26, 2024 Dr. Luca Nayak MD Attending Provider Active Start: August 29, 2024 End: September 26, 2024 Team Status: Active Member Role/Relationship Status Dates CARLOS Jauregui Referring Provider Active Star t: August 29, 2024 Dr. Brian Zimmerman MD Primary Care Provider Active Start: August 29, 2024 Dr. Luca Nayak MD Attending Provider Active Start: August 29, 2024 Dr. Luca Nayak MD Other Provider Active Star t: August 29, 2024 Team Status: Inactive Member Role/Relationship Status Dates Dr. Brian Zimmerman MD Primary Care Provider Active Start: September 16, 2024 End: September 16, 2024 Dr. Brian Zimmerman MD Referring Provider Active Start: September 16, 2024 End: September 16, 2024 Dr. Edmundo Quevedo MD Attending Provider Active Start: September 16, 2024 End: September 16, 2024 Team Status: Inactive Member Role/Relationship Status Dates Dr. Brian Zimmerman MD Primary Care Provider Active Start: June [...] Status: Active Member Role/Relationship Status Dates Dr. Brian Zimmerman MD Primary Care Provider Active Start: June [...] Status: Active Member Role/Relationship Status Dates Dr. Brian Zimmerman MD Primary Care Provider Active Start: June [...] Status: Active Member Role/Relationship Status Dates Dr. Brian Zimmerman MD Primary Care Provider Active Start: June [...] Status: Active Member Role/Relationship Status Dates Dr. Brian Zimmerman MD Primary Care Provider Active Start: June 22, 2024 Dr. Alex Mancera MD Attending Provider Active S tart: June 22, 2024 Dr. Juliana Shaw MD Referring Provider Active Start: June 22, 2024 Team Status: Active Member Role/Relationship Status Dates Dr. Brian Zimmerman MD Primary Care Provider Active Start: June 22, 2024 Dr. Juliana Shaw MD Attending Provider Active Start: June 22, 2024 Dr. Juliana Shaw MD Referring Provider Active Start: June 22, 2024 Team Status: Inactive Member Role/Relationship Status Dates CARLOS Jauregui Referring Provider Active Star t: June 27, 2024 End: June 27, 2024 Dr. Brian Zimmerman MD Primary Care Provider Active Start: June 27, 2024 End: June 27, 2024 Dr. Luca Nayak MD Attending Provider Active Start: June 27, 2024 End: June 27, 2024 Team Status: Active Member Role/Relationship Status Dates CARLOS Jauregui Referring Provider Active Star t: June 27, 2024 Dr. Brian Zimmerman MD Primary Care Provider Active Start: June 27, 2024 Dr. Luca Nayak MD Attending Provider Active Start: June 27, 2024 Dr. Luca Nayak MD Other Provider Active Star t: June 27, 2024 Team Status: Inactive Member Role/Relationship Status Dates Dr. Brian Zimmerman MD Primary Care Provider Active Start: July 11, 2024 End: July 11, 2024 Dr. Brian Zimmerman MD Attending Provider Active Start: July 11, 2024 End: July 11, 2024 Dr. Brian Zimmerman MD Referring Provider Active Start: July 11, 2024 End: July 11, 2024 Team Status: Inactive Member Role/Relationship Status Dates CARLOS Jauregui Referring Provider Active Star t: July 25, 2024 End: July 27, 2024 Dr. Brian Zimmerman MD Primary Care Provider Active Start: July 25, 2024 End: July 27, 2024 Dr. Luca Nayak MD Attending Provider Active Start: July 25, 2024 End: July 27, 2024 Team Status: Active Member Role/Relationship Status Dates Dr. Brian Zimmerman MD Primary Care Provider Active Start: July 25, 2024 Dr. Luca Nayak MD Attending Provider Active Start: July 25, 2024 Dr. Luca Nayak MD Referring Provider Active Start: July 25, 2024 Dr. Luca Nayak MD Other Provider Active Star t: July 25, 2024 Team Status: Inactive Member Role/Relationship Status Dates Dr. Brian Zimmerman MD Primary Care Provider Active Start: July [...] Status: Active Member Role/Relationship Status Dates Dr. Brian Zimmerman MD Primary Care Provider Active Start: July [...] Status: Active Member Role/Relationship Status Dates Dr. Brian Zimmerman MD Primary Care Provider Active Start: July [...] Status: Active Member Role/Relationship Status Dates Dr. Brian Zimmerman MD Primary Care Provider Active Start: August [...] Status: Inactive Member Role/Relationship Status Dates Dr. Brian Zimmerman MD Primary Care Provider Active Start: August 02, 2024 End: August 02, 2024 Dr. Hebert Saavedra MD Attending Provider Active Sta rt: August 02, 2024 End: August 02, 2024 Dr. Hebert Saavedra MD Emergency Provider Active Sta rt: August 02, 2024 End: August 02, 2024 Team Status: Inactive Member Role/Relationship Status Dates Dr. Brian Zimmerman MD Primary Care Provider Active Start: August [...] 29, 2024 End: September 26, 2024 Dr. Brian Zimmerman MD Primary Care Provider Active Start: August 29, 2024 End: September 26, 2024 Dr. Luca Nayak MD Attending Provider Active Start: August 29, 2024 End: September 26, 2024 Team Status: Active Member Role/Relationship Status Dates CARLOS Jauregui Referring Provider Active Star t: August 29, 2024 Dr. Brian Zimmerman MD Primary Care Provider Active Start: August 29, 2024 Dr. Luca Nayak MD Attending Provider Active Start: August 29, 2024 Dr. Luca Nayak MD Other Provider Active Star t: August 29, 2024 Team Status: Inactive Member Role/Relationship Status Dates Dr. Brian Zimmerman MD Primary Care Provider Active Start: September 16, 2024 End: September 16, 2024 Dr. Brian Zimmerman MD Referring Provider Active Start: September 16, 2024 End: September 16, 2024 Dr. Edmundo Quevedo MD Attending Provider Active Start: September 16, 2024 End: September 16, 2024 Team Status: Inactive Member Role/Relationship Status Dates Dr. Brian Zimmerman MD Primary Care Provider Active Start: September 28, 2024 End: September 28, 2024 RIKKI CASAS MD Attending Provider Active St art: September 28, 2024 End: September 28, 2024 RIKKI CASAS MD Referring Provider Active St art: September 28, 2024 End: September 28, 2024 Team Status: Active Member Role/Relationship Status Dates CARLOS Jauregui Referring Provider Active Star t: October 03, 2024 Dr. Brian Zimmerman MD Primary Care Provider Active Start: October 03, 2024 Dr. Luca Nayak MD Attending Provider Active Start: October 03, 2024 Reason for Visit (unrecogniz ed section and content) Reason Onset Date Comments returning call 03/06/2023 Reason Onset Date Comments Other 06/14/2023 Specialty Diagnoses / Procedures Referred By Contac t Referred To Contact Diagnoses Urinary incontinence Urinary incontinence Procedures MT CYSTOURETHROSCOPY MT CYSTOSTOMY CYSTOTOMY W/DRAINAGE CYSTOSCOPY possible trocar suprapubic cystostomy Rikki Casas MD [address] [place] [address] [facility] [address] [place] [address] Referral ID Status Reason Start Date Expiration Date Visits Re quested Visits Authorized [id number] 1 1 Reason Onset Date Comments Urinary Catheter Problem 12/18/2023 Reason Comments Urinary Retention SPT placement 4, Pt states they went to ED twice since then having SPT changed Reason Onset Date Comments Other 01/25/2024 Reason Onset Date Comments Orders 03/31/2024 Reason Onset Date Comments Results 07/29/2024 Reason Onset Date Comments Urinary Symptom 09/27/2024 FOR RECORDS PERTAINING TO PATIENTS WHO ARE [...] BE BASED ON THE PRIMARY CLINICAL RECORDS. [employer] provides no warranty or guarantee of the accuracy or completeness of information in this document.
== END | disposition home or self-care (01) ==
LOC: MRI 06:57
PROVIDERS: PCP Family Medicine; Referring Provider Orthopaedic Surgery Orthopaedic Surgery of the Spine; Visit Provider Orthopaedic Surgery Orthopaedic Surgery of the Spine
DX: M47.14 Other spondylosis with myelopathy, thoracic region (principal)
CPT/HCPCS: 72146

== ENCOUNTER 2024-11-14 14:57 | Outpatient (RCR) | payer MEDICARE, SELFPAY ==
[2024-11-14 15:33] VITALS: BP 147/97; PULSE 81; RESP 16; TEMP 36.3
--- NOTE | 2024-11-14 16:55 | PN.PCM_ITS ---
History of Present Illness Date of Service: 11/14/24 Chief Complaint: Right ischial pressure sore, Stage IV. History of Wound: This is a 68-year-old white male who presented to the wound healing center with complaints of pressure ulcer to right buttock area with extension to the right ischial bone. This started in October,. Patient's was treating with OTC creams and keeping area clean. The ulcer starting increasing in size and went to the Emergency Department on 02/08/22. CT showed subcutaneous and deep soft tissue involvement and possible early abscess formation. The bone was not addressed. The patient has very limited mobility as a result of a prior spine injury/surgery. He utilizes a wheelchair at all times. He has not been using his billy lift at home to transfer but has been using a board to slide himself from his bed to chair at home. He sits in his wheelchair almost all day, not really able to change positions. They finally obtained a low air loss overlay to their regular mattress at home. A roho cushion was ordered for his wheelchair. Patient is a former smoker, he quit early 2023. Surgery 04/28/22 - Excision right ischial pressure sore, Stage IV, with partial ostectomy for osteomyelitis. Size of wound 8 x 7 x 4.5 cm. Operative tissue cultures positive for MSSA and Cutibacterium acnes. Bone cultures positive for MSSA and Corynebacterium striatum. He is being treated with Augmentin. Pathology from surgery 04/28/22 showed chronic reparative and reactive change. No evidence of acute osteomyelitis. He had a diverting colostomy placed on 11/21/[address] Romero. Surgery 08/26/23 - Excision recurrent right ischial pressure sore, Stage IV, with partial ostectomy for osteomyelitis. Discharged home on 08/27/23. Pathology right ischial pressure sore soft tissue showed focal ulceration, acute and chronic inflammation an granulation tissue reaction. Right ischial bone, partial ostectomy showed fragments of bone with chronic inflammation and reactive changes, negative for acute osteomyelitis. Operative soft tissue cultures from 08/26/23 positive for Serratia marcescens, Staphylococcus capitis, and Corynebacterium striatum. Operative bone cultures from 08/26/23 positive for Serratia marcescens and Corynebacterium striatum. He was started on Levaquin and Doxycycline until he can be seen by ID on 11/04/23. Subjective Subjective 03 October 2024: The patient is a 69-year-old male presenting with wound healing issues. The wound has been problematic, with the patient experiencing pain and difficulty with previous wound vac therapy due to its tendency to dislodge. Currently, the wound is being managed with saline dressings, which appear to be promoting healing as granulation tissue is present. The patient also reports experiencing hallucinations, such as seeing animals t hat are not present. These hallucinations may be related to the antibiotics being taken for infection control. Attestation: Documentation on this patient encounter was supported using ambient scribe technology/ voice AI technology. The patient consented to recording for the purpose of documenting the encounter. Provider reviewed content of the generated note prior to signature. Current encounter, 14 November 2024: is having trouble at home with the patient as he is having intermittent delirium at night. He has had several UTIs and has been in the hospital over the past year. She has been doing excellent wound care to the ischial wound. Concerns for infection at. Objective Data Objective Data Vital Signs: Vital Signs Temp Pulse Resp BP 97.4 F L 81 16 147/97 H 11/14/24 15:33 11/14/24 15:33 11/14/24 15:33 11/14/24 15:33 Charges/Coding Visit Charges Office Visits / Consults: 61155 OV L3 Est 20min Physical Exam Narrative Persistent right ischial wound Wound examination reveals no fluid collections and presence of granulation tissue. No drainage. Surrounding skin appears healthy Measured 3 x 3 cm and 3 cm deep (down to muscle). No exposed bone at the base, all granulated. Const alert and oriented x3 General Appearance: cooperative Resp normal respiratory effort GI GI Narrative: Diverting ostomy is present and is productive Debridement Note Debridement Note No debridement was completed: No debridement was completed today Post-Debridement Measurements and Additional Note: Post-Debridement Measurements/Treatment WC - Nurse 1 - General Ulcer Assessment Start: 11/14/24 15:23 Freq: Status: Active Protocol: DILCIA.LOWEXT Activity Type Activity Date Activity User E-sign Co-sign Detail Recorded Client Recorded Date Recorded By Document 11/14/24 15:33 DL [id number] 11/14/24 15:38 DL 11/14/24 15:33 WC - Today's Visit Information Type of service Follow-up Visit (Physician/STATION CHIEF ) Arrival Mode Wheelchair Transfer Assistance Billy Lift Transfer Assist (Other) x2 Patient Identification Verified (Name & Yes ) Patient Requires Transmission-Based No Precautions Vital Signs Temperature (97.8 F-99.1 F) 97.4 F L Temperature Source Temporal Pulse Rate (60-100) 81 Pulse Location Monitor Respiratory Rate (12-18) 16 Respiratory rate source Observation Blood Pressure (90/60-120/80) 147/97 H Blood Pressure Mean (mm Hg) 113 Source Monitor History Since Last Visit- (Skip if this is Patient's initial visit) Have you changed medications since your No last visit? Any new allergies or adverse reactions No Had a fall/change in ADL's that may No increase risk of falls Signs or symptoms of abuse and/or No neglect since last visit Have you been in the hospital since your No last visit? Has dressing in place as prescribed Yes Has compression in place as prescribed N/A Has offloadiing in place as prescribed Yes Experienced any changes in pain level or No management Pain Scale: 0-10 Numeric Is Patient Pain Free? Yes - Nurse 1 - General Ulcer Measurement Start: 11/14/24 15:23 Freq: Status: Active Protocol: Activity Type Activity Date Activity User E-sign Co-sign Detail Recorded Client Recorded Date Recorded By Document 11/14/24 15:33 ARVIN [id number] 11/14/24 15:38 DL 11/14/24 15:33 Wound Center Nurse 1 #5- R ischium Post op -Current Size (cm) - Length 3 -Current Size (cm) - Width 1.5 -Current Size (cm) - Depth 6 -Total Square Cm 4.5 -Exudate Amt Medium -Exudate Type Serosanguineous -Wound Margin Distinct, Outline Attached -Granulation Amt Large (67-100%) -Granulation Quality Red -Necrosis Amt None Present (0 %) -Structure Exposed N/A -Texture (Michelle-wound Skin Appearance) Scarring -Moisture (Michelle-wound Skin Appearance) No Abnormality -Color (Michelle-wound Skin Appearance) No Abnormality -Temperature (Michelle-wound Skin No Abnormality Appearance) (Pt Warm) -Tenderness on Palpation (Michelle-wound No Skin Appearance) -Ulcer Cleansing Soap and Water -Foul Odor after Cleansing No -Anesthetic Used 4% Lidocaine Solution - Nurse 2 - General Ulcer CM Notes Start: 11/14/24 15:23 Freq: Status: Active Protocol: Activity Type Activity Date Activity User E-sign Co-sign Detail Recorded Client Recorded Date Recorded By Document 11/14/24 16:01 [id number] 11/14/24 16:04 11/14/24 16:01 Wound Center Nurse 2 -Time 16:01 -Correct Patient Yes -Correct Side, Site, Position Yes -Correct Procedure No -Procedure Performed No -Tunneling No -Undermining/Tunneling No -Circular Undermining No -Wound/Ulcer Outcome Not Healed -Ulcer Cleansing Not Cleansed -Foul Odor after Cleansing No -Bioengineered Tissue No -Bleeding Controlled with NA -Offloading No Pain Scale: 0-10 Numeric Is Patient Pain Free? Yes - Nurse 3 - General Ulcer D/C NN Start: 11/14/24 15:23 Freq: Status: Active Protocol: Activity Type Activity Date Activity User E-sign Co-sign Detail Recorded Client Recorded Date Recorded By Document 11/14/24 16:20 DL [id number] 11/14/24 16:22 DL 11/14/24 16:20 Wound Care Center Nurse 3 #5- R ischium Post op -Ulcer Cleansing Rinsed/ Irrigated with Saline -Foul Odor after Cleansing No -Other Dressing saline moistened gauze -Primary Dressing Covered/Secured with Dry Gauze, Secured with Tape -Other Covering ABD -Wound Comment(s) Dressing applied per Mark Elder today. Treatment Response Procedure Tolerated Well Pain Scale: 0-10 Numeric Is Patient Pain Free? Yes WC - Visit Discharge Discharge Condition Stable Ambulatory Status Wheelchair Transportation Private Auto Facility Type Home Health Orders Sent Yes Assessment/Plan Assessment/Plan (1) Decubitus ulcer of right buttock, stage 3: CODE(S): L89.313 - Pressure ulcer of right buttock, stage 3 PLAN: Assessment and Plan The 69-year-old male with a history of wound healing issues presents with ongoing management challenges. The wound is currently being treated with saline dressings, which have shown improvement with granulation tissue formation, indicating healing from the inside out. 1. Wound Healing Issues The plan is to continue with saline dressings twice daily to promote healing, as they have been effective in forming granulation tissue. A follow-up wound check is scheduled in six weeks to assess progress and determine if additional supplies are needed. Per discussion with patient and his , patient is not a flap candidate. We will continue wound care. F/u in 6 weeks I talked to Mrs. Covington about help at home with caregiving. I talked her about the challenges of trying to take care of a person by herself. I think it might be reasonable for them to consider inpatient low intensity rehab for the p atient. She is not interested in that at this time. They would like to follow- up in 6 weeks for wound check. PLAN: Plan - Continue saline dressings twice daily to aid wound healing. - Monitor for any changes in hallucinations and report them to the healthcare provider. - Attend the follow-up wound check in six weeks.
== END 2024-11-27 23:59 | disposition home or self-care (01) ==
LOC: WC 14:57
PROVIDERS: PCP Family Medicine; Referring Provider Physician Assistant; Visit Provider Surgery Plastic and Reconstructive Surgery
DX: L89.313 Pressure ulcer of right buttock, stage 3 (principal); L89.214 Pressure ulcer of right hip, stage 4; Z87.891 Personal history of nicotine dependence; Z99.3 Dependence on wheelchair; R41.0 Disorientation, unspecified
CPT/HCPCS: 97803; 99212; G0463

== ENCOUNTER 2024-12-26 14:59 | Outpatient (RCR) | payer MEDICARE, SELFPAY ==
[2024-12-26 15:13] VITALS: BP 159/89; PULSE 100; RESP 16; TEMP 36.6
--- NOTE | 2024-12-28 08:28 | PN.PCM_ITS ---
History of Present Illness Date of Service: 12/26/24 Chief Complaint: Right ischial pressure sore, Stage IV. History of Wound: This is a 68-year-old white male who presented to the wound healing center with complaints of pressure ulcer to right buttock area with extension to the right ischial bone. This started in October,. Patient's was treating with OTC creams and keeping area clean. The ulcer starting increasing in size and went to the Emergency Department on 02/08/22. CT showed subcutaneous and deep soft tissue involvement and possible early abscess formation. The bone was not addressed. The patient has very limited mobility as a result of a prior spine injury/surgery. He utilizes a wheelchair at all times. He has not been using his lm lift at home to transfer but has been using a board to slide himself from his bed to chair at home. He sits in his wheelchair almost all day, not really able to change positions. They finally obtained a low air loss overlay to their regular mattress at home. A roho cushion was ordered for his wheelchair. Patient is a former smoker, he quit early 2023. Surgery 04/28/22 - Excision right ischial pressure sore, Stage IV, with partial ostectomy for osteomyelitis. Size of wound 8 x 7 x 4.5 cm. Operative tissue cultures positive for MSSA and Cutibacterium acnes. Bone cultures positive for MSSA and Corynebacterium striatum. He is being treated with Augmentin. Pathology from surgery 04/28/22 showed chronic reparative and reactive change. No evidence of acute osteomyelitis. He had a diverting colostomy placed on 11/21/[address] Romero. Surgery 08/26/23 - Excision recurrent right ischial pressure sore, Stage IV, with partial ostectomy for osteomyelitis. Discharged home on 08/27/23. Pathology right ischial pressure sore soft tissue showed focal ulceration, acute and chronic inflammation an granulation tissue reaction. Right ischial bone, partial ostectomy showed fragments of bone with chronic inflammation and reactive changes, negative for acute osteomyelitis. Operative soft tissue cultures from 08/26/23 positive for Serratia marcescens, Staphylococcus capitis, and Corynebacterium striatum. Operative bone cultures from 08/26/23 positive for Serratia marcescens and Corynebacterium striatum. He was started on Levaquin and Doxycycline until he can be seen by ID on 11/04/23. Subjective Subjective 03 October 2024: The patient is a 69-year-old male presenting with wound healing issues. The wound has been problematic, with the patient experiencing pain and difficulty with previous wound vac therapy due to its tendency to dislodge. Currently, the wound is being managed with saline dressings, which appear to be promoting healing as granulation tissue is present. The patient also reports experiencing hallucinations, such as seeing animals t hat are not present. These hallucinations may be related to the antibiotics being taken for infection control. Attestation: Documentation on this patient encounter was supported using ambient scribe technology/ voice AI technology. The patient consented to recording for the purpose of documenting the encounter. Provider reviewed content of the generated note prior to signature. 14 November 2024: is having trouble at home with the patient as he is having intermittent delirium at night. He has had several UTIs and has been in the hospital over the past year. She has been doing excellent wound care to the ischial wound. Concerns for infection at. Current encounter, 26 Dec 2024: Patient here today for wound check. He is very conversant today and appears to be doing rather well. He seems to have more energy and is more conversant. He endorses excellent care from his who was present at the visit today. Objective Data Objective Data Vital Signs: Vital Signs Temp Pulse Resp BP 97.8 F 100 16 159/89 H 12/26/24 15:13 12/26/24 15:13 12/26/24 15:13 12/26/24 15:13 Charges/Coding Visit Charges Office Visits / Consults: [id number] OV L2 Est 10min Physical Exam Narrative Persistent right ischial wound Wound examination reveals no fluid collections and presence of granulation tis david. No drainage. Surrounding skin appears healthy Measured 3 x 4 cm today and 3 cm deep, with firmness at the base of the wound that has granulation tissue present Const alert and oriented x3 General Appearance: cooperative Resp normal respiratory effort GI GI Narrative: Diverting ostomy is present and is productive Debridement Note Debridement Note No debridement was completed: No debridement was completed today Assessment/Plan Assessment/Plan (1) Decubitus ulcer of right buttock, stage 3: CODE(S): L89.313 - Pressure ulcer of right buttock, stage 3 PLAN: Continue supportive care for the wound as the patient is not a flap candidate per discussion with the family and the patient (cannot follow positioning restrictions and is not interested in large surgery). Continue pressure offloading with the offloading bed and nutrition support (high-protein diet and continue to follow-up with our nutrition team) PLAN: Plan - Continue saline dressings twice daily to temporize wound - Attend the follow-up wound check in six weeks.
== END 2024-12-27 23:59 | disposition home or self-care (01) ==
LOC: WC 14:59
PROVIDERS: PCP Family Medicine; Referring Provider Physician Assistant; Visit Provider Surgery Plastic and Reconstructive Surgery
DX: L89.313 Pressure ulcer of right buttock, stage 3 (principal); L89.214 Pressure ulcer of right hip, stage 4; Z87.891 Personal history of nicotine dependence; Z99.3 Dependence on wheelchair
CPT/HCPCS: 99213; G0463

== ENCOUNTER → 2025-01-04 | Outpatient (CLI) | payer MEDICARE, SELFPAY ==
[2025-01-04 18:59] LABS: Vitamin B12 < 150 pg/mL (180-914)
[2025-01-04 19:27] LABS: Color, Urine Straw (Yellow); Glucose, Dipstick Normal (Normal); Ketone-Dipstick Negative (Negative); Leukocyte Esterase-Dipstick 500 /ul (Negative); Nitrite-Dipstick Positive (Negative); Occult Blood-Urine 150 /ul (Negative); Protein-Dipstick 30 mg/dl (Negative); Specific Gravity, Urine 1.015 (1.002-1.030); Urine Bilirubin Dipstick Negative (Negative)
[2025-01-06 17:10] LABS: Magnesium 1.8 mg/dL (1.5-2.2)
[2025-01-06 17:33] LABS: Anion Gap 16 (5-15); BUN 11 mg/dL (4-19); BUN/Creat Ratio 19.1 RATIO (10-20); Calcium,Total 9.4 mg/dL (7.6-11.0); Carbon Dioxide 23.2 mmol/L (21.0-32.0); Chloride 98 mmol/L (98-108); Glucose 137 mg/dL (70-99); Potassium 4.6 mmol/L (3.3-5.1)
== END | disposition home or self-care (01) ==
LOC: HHLAB 16:11
PROVIDERS: PCP Family Medicine; Visit Provider Family Medicine
DX: R82.71 Bacteriuria (principal); Z79.899 Other long term (current) drug therapy
CPT/HCPCS: 80048; 81002; 82607; 83735; 84443; 87077; 87086; 87088; 87186

== ENCOUNTER 2025-01-17 09:57 | Inpatient (IN) | payer MEDICARE, SELFPAY ==
[2025-01-17] VITALS (12 sets, daily range): BP systolic 109–139; BP diastolic 62–98; PULSE 70–80; RESP 16–22; TEMP 36.4–36.9; O2SAT 90–97; BMI 39.2; BMI 37.3
--- NOTE | 2025-01-17 10:14 | EKG12_ITS ---
Test Reason : ALT MS Blood Pressure : */* mmHG Vent. Rate : 74 BPM Atrial Rate : 74 BPM P-R Int : 170 ms QRS Dur : 82 ms QT Int : 348 ms P-R-T Axes : 69 54 77 degrees QTcB Int : 386 ms Normal sinus rhythm Low voltage QRS Borderline ECG Confirmed by Moustapha Ortega ([id number]), state editor SARAH CEVALLOS ([id number]) on 01/18/2025 1:40:41 PM Referred By: Confirmed By: Moustapha Ortega
--- NOTE | 2025-01-17 10:15 | RAD_ITS ---
PROCEDURE: CHEST PA AND LATERAL 01/17/2025 REASON FOR EXAM: TACHYPNEA AND SHORTNESS OF BREATH TECHNIQUE: Procedure Code: RADCXR Modality: DX Procedure: CHEST PA AND LATERAL COMPARISON: Prior study dated August 07, 2024. FINDINGS: Hardware: EKG electrodes are seen. Heart: Heart size is upper limits of normal. Mediastinum: The mediastinal contour is unremarkable. Lungs: Blunting of both costophrenic angles with mild increased markings at the lung bases suggestive of bibasilar atelectasis. Bones: Dextroconvex scoliosis. RAD/Chest PA and Lateral IMPRESSION: Blunting of both costophrenic angles with the increased markings at the lung ba ses suggestive of bibasilar atelectasis. Reading Location: [place] [id number]
[2025-01-17 10:49] LABS: Hematocrit 41.0 % (40-54); Hemoglobin 13.0 g/dL (13.0-16.5); Immature Granulocytes Count 0.080 X10^3/uL (0.0-0.0); Mean Corp Hgb Conc 31.7 g/dL (32-36); Mean Corpuscular Volume 87.8 fL (80-94); Mean Platelet Vol. 9.8 fl (6.2-12.0); NRBC Flagged by Analyzer 0 % (0-5); Platelet Count 378 K/mm3 (150-450); RBC Distribution Width CV 17.2 % (11.6-14.6); RBC Distribution Width SD 54.6 fl (35.1-43.9); Red Blood Count 4.67 M/mm3 (4.6-6.2); White Blood Count 8.1 K/mm3 (4.4-11.0)
[2025-01-17 10:58] LABS: Mucous, Urine 0 SEEN /hpf (<or=2+); Red Blood Cells-Urine 0 SEEN /hpf (0-5); Squamous Epithelial Cells - UA 0 SEEN /hpf (0-5)
[2025-01-17 11:06] LABS: Color, Urine Yellow (Yellow); Glucose, Dipstick Normal (Normal); Ketone-Dipstick Negative (Negative); Leukocyte Esterase-Dipstick 500 /ul (Negative); Nitrite-Dipstick Positive (Negative); Occult Blood-Urine 25 /ul (Negative); Protein-Dipstick 30 mg/dl (Negative); Specific Gravity, Urine 1.020 (1.002-1.030); Urine Bilirubin Dipstick Negative (Negative)
--- NOTE | 2025-01-17 11:48 | EX.ED.DYSGE1 ---
HPI History of Present Illness Chief Complaint: Alt LOC Detail of Chief Complaint: Sent to ER because of change in mental Informant: patient and EMS Onset/Context/Timing Onset: Today Context: Sudden Onset Timing: Intermittent (Charge nurse states he was alert and oriented x 3 when she saw him. He was not when I saw him.) Quality: Disorientation, recent UTI positive for Klebsiella sensitive to Rocephin Current Severity: Mild Maximum Severity: Moderate Worsened by: Presumed UTI since his urine looks like cream of mushroom soup Relieved by: Patient has delirium by definition Associated Symptoms Associated Symptoms: Patient is not a good informant at the time of my exam Narrative Narrative: Patient is a 69-year-old male. He has history of pressure sores gluteal area since he has bed ridden. He has a foot drop and has a brace. He also has history of osteomyelitis of the right pelvis. He has a chronic indwelling Benson and a diverting colostomy. Presently he does not know month day of the week day of the month or year. This is different than what he was able to perform for the charge nurse and his what prompted the visiting nurse to send him to the emergency department. Reportedly he is on an antibiotic. He does not know what antibiotic he is on. Patient is a pleasant 69-year-old male. His blood pressure slightly elevated is tachypneic. He is not febrile. He is not hypoxic on room air either. Prior similar symptoms: Yes Recent Illness/[facility]ospital[facility] Medical History Scoliosis Fusion of spine, cervical region Thoracic myelopathy Cervical myelopathy Colostomy in place Wheelchair dependent Constipation Spinal cord injury Tobacco abuse Hypothyroidism Hyperlipidemia COPD (chronic obstructive pulmonary disease) Other acute postprocedural pain Paraplegic spinal paralysis History of pressure ulcer Wears glasses Thyroid disease Arthritis Uses wheelchair High cholesterol Gastric reflux COPD (chronic obstructive pulmonary disease) Hx of fracture of arm Hx of head injury Bedridden Smoker Right ischial pressure sore, stage 4 Home Medications ?Medication ?Instructions ?Recorded ?Last Taken ?Type levothyroxine 125 mcg tablet 125 mcg PO DAILY THYROID 12/17/17 08/02/24 History tamsulosin 0.4 mg capsule 0.4 mg PO BID PROSTATE 12/17/17 08/02/24 History icosapent ethyl 1 gram capsule 2 g PO BIDCM cholesterol 02/08/22 08/02/24 History (Vascepa) acetaminophen 650 mg 1,300 mg PO Q8H PRN Pain 04/25/22 Unknown History tablet,extended release levofloxacin 750 mg tablet 750 mg PO DAILY #6 tabs 08/01/24 08/02/24 Rx omeprazole 40 mg capsule,delayed 40 mg PO DAILY 08/02/24 08/02/24 History release baclofen 20 mg tablet 20 mg PO TID PRN 08/07/24 Unknown History meclizine 25 mg tablet 25 mg PO TID PRN dizziness #20 tabs 08/07/24 Unknown Rx nitrofurantoin macrocrystal 50 mg 50 mg PO QHS 08/29/24 Unknown History capsule Allergy/AdvReac Type Severity Reaction Status Date / Time Environmental Allergies: Allergy NEEDS Verified 01/17/25 10:03 Uncoded (dust) FOLLOW-UP house dust Allergy Other Verified 01/17/25 10:03 pollen extracts Allergy NEEDS Verified 01/17/25 10:03 FOLLOW-UP Family History Mother CVA (cerebral vascular accident) Hypertension Father Hypertension Prostate CA Surgical History Chronic suprapubic catheter S/P colostomy History of back surgery Hx of neck surgery Hx of spinal surgery Social History household members: spouse Smoking Status: Former smoker alcohol intake: never substance use type: does not use ROS ROS ED Review of Systems ROS Unobtainable: due to mental status Constitutional Constitutional ED: Denies chills, fever(s) or subjective Eyes Eyes: Denies change in vision ENT ENT ED: Denies rhinorrhea or sore throat Cardiovascular Cardiovascular: Denies chest pain or palpitations Respiratory/Chest Respiratory/Chest: Denies cough, dyspnea or dyspnea on exertion Gastrointestinal Gastrointestinal: Denies abdominal pain, nausea or vomiting Genitourinary Genitourinary ED: Reports other Details: Indwelling Benson, urine is white in color Musculoskeletal Musculoskeletal: Denies arthralgias or myalgias Integumentary Denies rash Neurologic Neurologic: Reports weakness Psychiatric Psychiatric: Reports depression Hematologic/Lymphatic Hematologic/Lymphatic: Reports systems reviewed and no addt'l complaints, except as documented EXAM Physical Exam Const Vital Signs: 01/17/25 09:58 01/17/25 10:02 01/17/25 10:13 Temperature 97.6 F L 97.6 F L Temperature Source Oral Oral Pulse Rate 79 80 79 Respiratory Rate 22 H 21 H 19 H Blood Pressure 130/77 H 130/77 H Blood Pressure Mean 94 94 Pulse Ox 90 91 92 Oxygen Delivery Method Room Air Room Air Oxygen Flow Rate (L/min) 01/17/25 10:15 01/17/25 10:30 01/17/25 10:45 Temperature Temperature Source Pulse Rate 78 75 72 Respiratory Rate 21 H 18 18 Blood Pressure 124/74 H 139/75 H Blood Pressure Mean 88 94 Pulse Ox 91 96 Oxygen Delivery Method Oxygen Flow Rate (L/min) 01/17/25 10:58 01/17/25 11:02 Temperature 97.7 F L Temperature Source Oral Pulse Rate 78 78 Respiratory Rate 19 H 19 H Blood Pressure 109/67 109/67 Blood Pressure Mean 78 81 Pulse Ox 97 97 Oxygen Delivery Method Nasal Cannula Oxygen Flow Rate (L/min) 3 Positive well nourished, well developed and unkempt Constitutional Narrative: BMI is 39.2. General Appearance ED: unkempt, well developed and NAD HEENT Reports dry mucous membranes HEENT Narrative: Patient has alopecia. Ears are normal. Nares are patent. Mucosas slightly dry. Posterior pharynx is normal. Uvula is midline. Mouth ED: Yes dry mucous membranes Mouth: dry mucous membranes Eyes PERRL and EOMs intact bilaterally General Eye ED: Negative for pale conjunctiva or scleral icterus Neck no lymphadenopathy, supple and no JVD Chest Wall inspection of chest normal and palpation of chest normal Resp normal respiratory effort and No clear to auscultation bilaterally Resp Narrative: Bibasilar rales. Patient is not taking a deep breath when asked. Cardio regular rate, regular rhythm, S1 normal heart sound, S2 normal heart sound and no murmurs GI normal to inspection, nondistended, normoactive bowel sounds, non-tender, non-distended and no masses; Negative for hepatosplenomegaly GI Narrative: Colostomy noted on the left. There is brown soft stool noted in the bag. Narrative: Indwelling Benson Extremity Negative for normal to inspection Neuro No oriented x3, CN's II-XII intact bilaterally and No no sensory deficits noted Sensorium / Orientation: Negative for alert Motor Exam: Negative for strength 5/5 throughout Psych Appearance: unkempt Mood & Affect: depressed Skin Skin Narrative: Patient appears slightly pale. Sepsis Attestation Sepsis Attestation: Agree w/Sepsis Date exam was performed: 01/17/25 Time exam was performed: 11:58 Possible Source of Sepsis: Genitourinary Sepsis Organ Dysfunction Criteria Present: Lactic Acid > 2 mmol/L and New/Unexplained change in mental status Fluid Resuscitation Fluid resuscitation indicated?: Yes Fluid Resuscitation ordered: 30 ml/kg fluid bolus ordered Amount of fluid ordered: 3,300 MDM MDM MDM Narrative Medical decision making narrative: Patient has encephalopathy/acute delirium. Since he has had levels where he has been alert and oriented he has the Librium by definition. In light of his urine suspect this is the source. Based on past sensitivities he was tried on Rocephin. Sepsis workup was initiated. Lab Data Attestation: I reviewed the patient's lab results. Lab results narrative: White count, differential and H&H are unremarkable. Urine is consistent with infection. Urine is obtained from a U catheter Labs: Laboratory Results - last 24 hr 01/17/25 01/17/25 10:35 10:51 WBC 8.1 RBC 4.67 Hgb 13.0 Hct 41.0 MCV 87.8 MCH 27.8 MCHC 31.7 L RDW Std Deviation 54.6 H RDW Coeff of Josue 17.2 H Plt Count 378 MPV 9.8 Immature Gran % (Auto) 1.000 H Neut % (Auto) 63.4 Lymph % (Auto) 21.3 [place] % (Auto) 9.5 Eos % (Auto) 4.1 Baso % (Auto) 0.7 Absolute Neuts (auto) 5.1 Absolute Lymphs (auto) 1.72 Nucleated RBC % 0 Lactic Acid 2.1 H* Urine Color Yellow Urine Clarity Cloudy Urine pH 6.0 Ur Specific [place] 1.020 Urine Protein 30 H Urine Glucose (UA) Normal Urine Ketones Negative Urine Occult Blood 25 H Urine Nitrite Positive H Urine Bilirubin Negative Urine Urobilinogen Normal Ur Leukocyte Esterase 500 H Urine RBC 0 SEEN Urine WBC 10-25 SEEN Ur Squamous Epith Cells 0 SEEN Urine Bacteria 2+ Urine Mucus 0 SEEN Radiography Chest X-Ray - ED: Read by ED Physician (Patient has blunting of the costophrenic angles bilaterally. Film is suboptimal. Inspiratory volume is poor. In my opinion findings are consistent due to poor inspiration and atelectasis. There is no obvious infiltrate.) Diagnostic Testing: Clinical Impression(s) from Imaging Studies Chest X-Ray 01/17/25 10:15 IMPRESSION: Blunting of both costophrenic angles with the increased markings at the lung bases suggestive of bibasilar atelectasis. Reading Location: [place] [id number] EKG Initial EKG: Attestation: I personally reviewed and interpreted this EKG as follows: Interpretation: Sinus Rhythm (Rate is 70. Patient has low voltage. MA interval is 170 ms. QS duration 82 ms. QT duration 348 ms. [place] is normal.) Management Discussion w/another healthcare provider: Hospitalist (Spoke with Dr. Basiloi Hernandez. Admit PCU since his blood pressure and heart rate are acceptable.) Treatment and Re-Evaluation :: Patient is had approximately 20 mm drop in blood pressure. With change in mental status lactate up he received a fluid bolus. Sepsis portion of the chart was completed Critical Care Time Critical Care Time: Yes Critical care time (excluding procedures): 30-74 minutes (32), Including time spent: (History, physical, documentation, interpretation laboratory results, initiation of treatment for delirium due to urinary tract infection, fluid bolus,), Discussing w/Patient &/or Family/Inside Sales Administrator, Discussing w/Consultants and Arranging Admission or Transfer Discharge Plan Dx/Rx/DC Orders Clinical Impression: Complicated urinary tract infection, Acute delirium, Acidosis, lactic, Sepsis, Scoliosis, Bedridden Disposition Disposition: Acute Care [facility]
--- NOTE | 2025-01-17 11:57 | ED.RN ---
Critical lactic acid received from lab of 2.1. Dr. Saavedra notified.
[2025-01-17 12:23] LABS: AST(SGOT) 18 U/L (<=37); Alanine Aminotransfer ALT/SGPT 21 U/L (<=46); Albumin, Serum 3.5 g/dL (3.4-4.8); Alkaline Phosphatase 121 U/L (40-129); Anion Gap 11 (5-15); BUN 11 mg/dL (4-19); BUN/Creat Ratio 18.9 RATIO (10-20); Calcium,Total 9.2 mg/dL (7.6-11.0); Carbon Dioxide 23.7 mmol/L (21.0-32.0); Chloride 101 mmol/L (98-108); Estimated Creatinine Clearance 102.95 ml/min (50-250); Globulin 3.8 g/dL (2.2-4.2); Glucose 258 mg/dL (70-99); Potassium 4.6 mmol/L (3.3-5.1)
[2025-01-17] MEDS: Ceftriaxone 2 GM in 0.9% Normal Saline (50mL MB+) 50 ML IV (12:30)
[2025-01-17] MEDS: 0.9% Normal Saline (1000mL) 1,000 ML 999 ML IV ×2 (12:30→14:01)
--- NOTE | 2025-01-17 12:39 | PCM.HP.STD ---
HPI - General General Date of Admission: 01/17/25 Date of Service: 01/17/25 Chief Complaint: confusion. HPI Narrative JORGE LINDSEY, is a 69 M who presents with change in mental status. This is a 69-year-old male with history of chronic Benson and diverting colostomy presents with confusion at home. Visiting nurse saw him and sent him to the emergency room. In emergency room, patient had a lactic acid of 2.1, he was ordered IV fluids as well as antibiotics given concern for urinary tract infection with ceftriaxone. Patient is a poor historian. [ ] [facility] Medical History (Updated 01/17/25 @ 12:[address] Basilio Dill, DO) Urinary tract infection Scoliosis Fusion of spine, cervical region Thoracic myelopathy Cervical myelopathy Colostomy in place Wheelchair dependent Constipation Spinal cord injury Tobacco abuse Hypothyroidism Hyperlipidemia COPD (chronic obstructive pulmonary disease) Other acute postprocedural pain Paraplegic spinal paralysis History of pressure ulcer Wears glasses Thyroid disease Arthritis Uses wheelchair High cholesterol Gastric reflux COPD (chronic obstructive pulmonary disease) Hx of fracture of arm Hx of head injury Bedridden Smoker Right ischial pressure sore, stage 4 Home Medications ?Medication ?Instructions ?Recorded ?Last Taken ?Type levothyroxine 125 mcg tablet 125 mcg PO DAILY THYROID 12/17/17 08/02/24 History tamsulosin 0.4 mg capsule 0.4 mg PO BID PROSTATE 12/17/17 08/02/24 History icosapent ethyl 1 gram capsule 2 g PO BIDCM cholesterol 02/08/22 08/02/24 History (Vascepa) omeprazole 40 mg capsule,delayed 40 mg PO DAILY reflux 08/02/24 08/02/24 History release baclofen 20 mg tablet 20 mg PO TID PRN pain 08/07/24 Unknown History meclizine 25 mg tablet 25 mg PO TID PRN dizziness #20 tabs 08/07/24 Unknown Rx nitrofurantoin macrocrystal 50 mg 50 mg PO QHS prevent infection 08/29/24 Unknown History capsule Allergy/AdvReac Type Severity Reaction Status Date / Time Environmental Allergies: Allergy NEEDS Verified 01/17/25 10:03 Uncoded (dust) FOLLOW-UP house dust Allergy Other Verified 01/17/25 10:03 pollen extracts Allergy NEEDS Verified 01/17/25 10:03 FOLLOW-UP Family History Mother CVA (cerebral vascular accident) Hypertension Father Hypertension Prostate CA Surgical History Chronic suprapubic catheter S/P colostomy History of back surgery Hx of neck surgery Hx of spinal surgery Social History household members: spouse Smoking Status: Former smoker alcohol intake: never substance use type: does not use ROS ROS Narrative All review of systems were negative except as mentioned above in the history of present illness and the other review of systems. Vital Signs Vital Signs Vital Signs: 01/17/25 09:58 01/17/25 10:02 01/17/25 10:13 Temperature 36.4 C L 36.4 C L Temperature Source Oral Oral Pulse Rate 79 80 79 Respiratory Rate 22 H 21 H 19 H Blood Pressure 130/77 H 130/77 H Blood Pressure Mean 94 94 Pulse Ox 90 91 92 Oxygen Delivery Method Room Air Room Air Oxygen Flow Rate (L/min) 01/17/25 10:15 01/17/25 10:30 01/17/25 10:45 Temperature Temperature Source Pulse Rate 78 75 72 Respiratory Rate 21 H 18 18 Blood Pressure 124/74 H 139/75 H Blood Pressure Mean 88 94 Pulse Ox 91 96 Oxygen Delivery Method Oxygen Flow Rate (L/min) 01/17/25 10:58 01/17/25 11:02 01/17/25 12:00 Temperature 36.5 C L 36.4 C L Temperature Source Oral Oral Pulse Rate 78 78 76 Respiratory Rate 19 H 19 H 16 Blood Pressure 109/67 109/67 111/98 H Blood Pressure Mean 78 81 102 Pulse Ox 97 97 97 Oxygen Delivery Method Nasal Cannula Nasal Cannula Oxygen Flow Rate (L/min) 3 3 Weight Weight: 110.2 kg Body Mass Index (BMI) 39.2 Physical Exam Const Constitutional Narrative: Alert to place and self. General Appearance: cooperative Orientation / Consciousness: disoriented HEENT normocephalic, head/scalp atraumatic and moist oral mucous membranes HEENT Narrative: Edentulous Resp normal respiratory effort, no retractions, no use of accessory muscles and clear to auscultation bilaterally Cardio regular rate, regular rhythm, S1 normal heart sound and S2 normal heart sound GI normal to inspection, nondistended, normoactive bowel sounds, soft to palpation, non-tender and non-distended Neuro Sensorium / Orientation: awake Results Lab / Micro Data Attestation: I reviewed the patient's lab results. 01/17/25 10:35 01/17/25 10:35 Labs: Laboratory Results - last 24 hr 01/17/25 10:35: WBC 8.1, RBC 4.67, Hgb 13.0, Hct 41.0, MCV 87.8, MCH 27.8, MCHC 31.7 L, RDW Std Deviation 54.6 H, RDW Coeff of Josue 17.2 H, Plt Count 378, MPV 9.8, Immature Gran % (Auto) 1.000 H, Neut % (Auto) 63.4, Lymph % (Auto) 21.3, [place] % (Auto) 9.5, Eos % (Auto) 4.1, Baso % (Auto) 0.7, Absolute Neuts (auto) 5.1, Absolute Lymphs (auto) 1.72, Nucleated RBC % 0, Sodium 136, Potassium 4.6, Chloride 101, Carbon Dioxide 23.7, Anion Gap 11, BUN 11, Creatinine 0.59 L, Estim Creat Clear Calc 102.95, Est GFR (MDRD) Non-Af 106, BUN/Creatinine Ratio 18.9, Glucose 258 H, Lactic Acid 2.1 H*, Calcium 9.2, Total Bilirubin < 0.15, AST 18, ALT 21, Alkaline Phosphatase 121, Total Protein 7.2, Albumin 3.5, Globulin 3.8, Albumin/Globulin Ratio 0.9 01/17/25 10:51: Urine Color Yellow, Urine Clarity Cloudy, Urine pH 6.0, Ur Specific [place] 1.020, Urine Protein 30 H, Urine Glucose (UA) Normal, Urine Ketones Negative, Urine Occult Blood 25 H, Urine Nitrite Positive H, Urine Bilirubin Negative, Urine Urobilinogen Normal, Ur Leukocyte Esterase 500 H, Urine RBC 0 SEEN, Urine WBC 10-25 SEEN, Ur Squamous Epith Cells 0 SEEN, Urine Bacteria 2+, Urine Mucus 0 SEEN EKG Initial EKG: Attestation: I personally reviewed and interpreted this EKG as follows: Prior EKG tracings: available for review EKG Rhythm Intrepretation: Sinus Rhythm Imaging Radiology Impression Chest X-Ray 10/21/25 10:15 IMPRESSION: Blunting of both costophrenic angles with the increased markings at the lung bases suggestive of bibasilar atelectasis. Reading Location: [facility] Assessment & Plan Assessment/Plan (1) Sepsis: PLAN: Present on admission. qSOFA of 2 with encephalopathy and a respiratory rate of 22 Likely secondary to UTI. Follow-up cultures Continue with IV fluids (2) Urinary tract infection: PLAN: Catheter associated Received ceftriaxone given prior history of Klebsiella Continue ceftriaxone (3) Metabolic encephalopathy: PLAN: Secondary to sepsis and UTI Hold potentiating medications including baclofen PLAN: Plan Debility: Patient is bedbound at baseline. PT OT Hypothyroidism: Continue levothyroxine VTE prophylaxis with Charges/Coding Visit Charges Inpatient E&M: 88496 Init Hosp L2
[2025-01-17 14:44] LABS: Reflex Lactate? Y
[2025-01-17] MEDS: 0.9% Normal Saline (1000mL) 1,000 ML 150 ML IV (15:23)
[2025-01-18 03:30] VITALS: BP 113/58; PULSE 80; RESP 18; TEMP 37.1; O2SAT 92
[2025-01-18 05:58] LABS: Hematocrit 36.8 % (40-54); Hemoglobin 11.4 g/dL (13.0-16.5); Immature Granulocytes Count 0.080 X10^3/uL (0.0-0.0); Mean Corp Hgb Conc 31.0 g/dL (32-36); Mean Corpuscular Volume 88.0 fL (80-94); Mean Platelet Vol. 9.7 fl (6.2-12.0); NRBC Flagged by Analyzer 0 % (0-5); Platelet Count 398 K/mm3 (150-450); RBC Distribution Width CV 16.8 % (11.6-14.6); RBC Distribution Width SD 54.1 fl (35.1-43.9); Red Blood Count 4.18 M/mm3 (4.6-6.2); White Blood Count 8.6 K/mm3 (4.4-11.0)
[2025-01-18 07:15] LABS: Anion Gap 10 (5-15); BUN 9 mg/dL (4-19); BUN/Creat Ratio 17.8 RATIO (10-20); Calcium,Total 8.7 mg/dL (7.6-11.0); Carbon Dioxide 23.6 mmol/L (21.0-32.0); Chloride 102 mmol/L (98-108); Estimated Creatinine Clearance 100.25 ml/min (50-250); Glucose 165 mg/dL (70-99); Potassium 4.6 mmol/L (3.3-5.1)
--- NOTE | 2025-01-18 08:09 | PCM.PN.HOSP ---
Reason for Visit Chief Complaint: confusion. Subjective Subjective Feeling better. Objective Data Objective Data Vital Signs: Vital Signs Temp Pulse Resp BP Pulse Ox O2 Del Method O2 Flow Rate 37.1 C 80 18 113/58 L 92 Nasal Cannula 2 01/18/25 03:30 01/18/25 03:30 01/18/25 03:30 01/18/25 03:30 01/18/25 03:30 01/18/25 03:30 01/18/25 03:30 Oxygen Flow Rate (L/min) 2 Oxygen Delivery Method Nasal Cannula Weight: 104.8 kg Body Mass Index (BMI) 37.3 Intake & Output: Intake and Output for Last 24 Hours 01/16/25 01/17/25 01/18/25 23:59 23:59 23:59 Intake Total 3450.0 / 3450.0 Output Total 700 / 1300 1600 / 1600 Balance 2750.0 / 2150.0 -1600 / -1600 Lab / Micro Data 01/18/25 05:23 01/18/25 05:23 Labs: Laboratory Results - last 24 hr 01/17/25 10:35: WBC 8.1, RBC 4.67, Hgb 13.0, Hct 41.0, MCV 87.8, MCH 27.8, MCHC 31.7 L, RDW Std Deviation 54.6 H, RDW Coeff of Josue 17.2 H, Plt Count 378, MPV 9.8, Immature Gran % (Auto) 1.000 H, Neut % (Auto) 63.4, Lymph % (Auto) 21.3, Dunn % (Auto) 9.5, Eos % (Auto) 4.1, Baso % (Auto) 0.7, Absolute Neuts (auto) 5.1, Absolute Lymphs (auto) 1.72, Nucleated RBC % 0, Sodium 136, Potassium 4.6, Chloride 101, Carbon Dioxide 23.7, Anion Gap 11, BUN 11, Creatinine 0.59 L, Estim Creat Clear Calc 102.95, Est GFR (MDRD) Non-Af 106, BUN/Creatinine Ratio 18.9, Glucose 258 H, Lactic Acid 2.1 H*, Calcium 9.2, Total Bilirubin < 0.15, AST 18, ALT 21, Alkaline Phosphatase 121, Total Protein 7.2, Albumin 3.5, Globulin 3.8, Albumin/Globulin Ratio 0.9 01/17/25 10:51: Urine Color Yellow, Urine Clarity Cloudy, Urine pH 6.0, Ur Specific [place] 1.020, Urine Protein 30 H, Urine Glucose (UA) Normal, Urine Ketones Negative, Urine Occult Blood 25 H, Urine Nitrite Positive H, Urine Bilirubin Negative, Urine Urobilinogen Normal, Ur Leukocyte Esterase 500 H, Urine RBC 0 SEEN, Urine WBC 10-25 SEEN, Ur Squamous Epith Cells 0 SEEN, Urine Bacteria 2+, Urine Mucus 0 SEEN 01/17/25 15:11: Lactic Acid 2.3 H* 01/18/25 05:23: WBC 8.6, RBC 4.18 L, Hgb 11.4 L, Hct 36.8 L, MCV 88.0, MCH 27.3, MCHC 31.0 L, RDW Std Deviation 54.1 H, RDW Coeff of Josue 16.8 H, Plt Count 398, MPV 9.7, Immature Gran % (Auto) 0.900, Neut % (Auto) 67.2, Lymph % (Auto) 19.9, Dunn % (Auto) 7.8, Eos % (Auto) 3.4, Baso % (Auto) 0.8, Absolute Neuts (auto) 5.8, Absolute Lymphs (auto) 1.71, Nucleated RBC % 0, Sodium 135, Potassium 4.6, Chloride 102, Carbon Dioxide 23.6, Anion Gap 10, BUN 9, Creatinine 0.52 L, Estim Creat Clear Calc 100.25, Est GFR (MDRD) Non-Af 110, BUN/Creatinine Ratio 17.8, Glucose 165 H, Calcium 8.7 Radiography Diagnostic Testing: Radiology Impression Chest X-Ray 01/17/25 10:15 IMPRESSION: Blunting of both costophrenic angles with the increased markings at the lung bases suggestive of bibasilar atelectasis. Reading Location: [place] [id number] Physical Exam Const alert and no apparent distress Constitutional Narrative: clean shaven today. Resp normal respiratory effort, no retractions, no use of accessory muscles and clear to auscultation bilaterally Cardio regular rate, regular rhythm, S1 normal heart sound and S2 normal heart sound GI normal to inspection, nondistended, normoactive bowel sounds, soft to palpation, non-tender and non-distended Neuro Sensorium / Orientation: awake and alert Assessment & Plan Assessment/Plan (1) Sepsis: PLAN: Present on admission. qSOFA of 2 with encephalopathy and a respiratory rate of 22 Likely secondary to UTI. Follow-up cultures Continue with IV fluids (2) Urinary tract infection: PLAN: Catheter associated Received ceftriaxone given prior history of Klebsiella Continue ceftriaxone UCx growing out GNR and GNRLF (3) Metabolic encephalopathy: PLAN: Resolved Secondary to sepsis and UTI Hold potentiating medications including baclofen PLAN: Plan Debility: Patient is bedbound at baseline. PT OT Hypothyroidism: Continue levothyroxine VTE prophylaxis with enoxaparin Charges/Coding Visit Charges Inpatient E&M: 25215 Subs Hosp L2
[2025-01-18 09:00] VITALS: BP 122/73; PULSE 88; RESP 16; TEMP 36.7; O2SAT 94
--- NOTE | 2025-01-18 09:35 | WOUNDNOTE ---
wound photo: right ischium
--- NOTE | 2025-01-18 09:41 | WOUNDNOTE ---
Removed the colostomy appliance to assess the stoma to the left lower abdomen. stoma is pink and moist. is well budded and measures approx 1. peristomal skin is intact. there was a moderate amount of soft unformed brown stool in the appliance. cleansed skin with warm water. pat dry. applied a new 2 piece flat [place] appliance with a small amount of stoma paste. pt tolerated well. will monitor.
[2025-01-18] MEDS: 0.9% Saline Lock 10 ML Syringe IV (09:46)
[2025-01-18] MEDS: FLU VACCINE HIGH DOSE 25-26(65YR UP) 180 MCG/0.5 ML SYRINGE IM (09:47)
[2025-01-18 15:00] VITALS: BP 155/68; PULSE 92; RESP 16; TEMP 36.8; O2SAT 90
--- NOTE | 2025-01-18 15:04 | CHAPLAIN ---
Type of Pastoral Visit _x__ Initial Visit ___ Follow-up Visit ___ On-call Visit ___ General Patient Visit ___ Spiritual Assessment ___ Family Conference ___ Bereavement ___ Rapid Response ___ Code Blue ___ Other (describe below) Pastoral Care Referral From _x__ Patient ___ Family ___ Nurse ___ Physician ___ Veneer Lathe Operator ___ Borematic Machine Operator ___ Other (describe below) Sacrament/Intervention _x__ Active listening ___ Anointing ___ Jewish ___ Bereavement ___ Communion ___ Eveline exploration ___ ___ Life review _x__ Prayer ___ Reconciliation ___ Sacrament of Sick _x__ Supportive presence ___ Wedding ___ Other (describe below) Pastoral Comments patient is welcoming and immediately starts talking about the people in the trees outside; pt is convinced there are college students jumping from one tree to the next and he is concerned that they might really hurt themselves; no one is seen in the trees by this consumer affairs specialist; pt says that he is feeling pretty good and then admits that the medications are making me hallucinate; pt talks about self for a short bit; pt welcomes prayer for support as he indicates no other needs or concerns
--- NOTE | 2025-01-18 15:06 | CASEMGMT ---
Addendum entered by Zhen Zarate 01/19/25 14:08: 01/18 @ 1506: Pt does not have home O2. Discussed possible need of O2 @ dc & verbal list provided. chooses [employer]. Original Note: RN CM Assessment Strata: 3 RN CM to room to meet with patient for initial transition planning/care coordination assessment. RN SAVANAH introduced self and role at [facility]. Patient lying in bed, alert and oriented. Pt able to recall some information but not able to answer all questions. He stated RN CM can call his to get further information. Call placed to pt's and the following information obtained. Care providers, pharmacy, and demographics verified. PCP: Dr Zimmerman Specialists: Dr N[facility]ak [facility]. states pt has been going every [address] Larios, urologist. Dr Romero-surgeon. Dr Quevedo-jessy Preferred Pharmacy: [facility] Insurance: [facility] Prescription Benefit: yes LNOK: , Abraham. Son, Harsha. Living Arrangements: Patient lives with in a one-story home with ramp entrance. Pt is chair fast & bedridden. sponge-bathes pt, states he is able to dress himself. states she transfers pt w/use of Billy between bed and W/C. Per , pt used to try to stand/pivot but would end up falling to the floor & they would need to call the squad to get pt off of the floor, but states he has not done that for a couple of months. Pt has a colostomy and suprapubic catheter, which manages. She also does wound care/dressing changes. states she works in [employer] from 7 AM- 3:30 PM & pt is home alone while she is @ work. Offered list of hearing aide technician agencies and states would like this. states she will be coming in to see pt and will be arriving @ [facility] around 4:15 PM today. informed JAZZY PAVON would leave the list in pt's room. She voices appreciation. Transportation: . She states they have a W/C van. DME: Patient has a power wheelchair, hospital bed w/pressure reducing mattress, Billy lift, W/C van. SNF/HHC: Patient has been to [facility] in the past. Patient is active with [facility] for SN & would like pt to resume this @ discharge. She declines wanting list of other HHC options, stating she is pleased w/them. Pt is agreeable to this as well. Palliative: JAZZY PAVON broached topic of palliative care. is interested in referral, but states she will not be available to come into [facility] during the day d/t her work schedule, stating the earliest she could arrive is @ 4:15 PM. Order for palliative referral received from Dr Dill. states he has no further needs or concerns at this time. CM to follow for discharge planning needs that may arise. Plan: Home with resumption of [facility] & spousal support. Order for Palliative referral placed. Taina NEAL RN CM
[2025-01-18 21:25] VITALS: BP 155/71; PULSE 91; RESP 18; TEMP 36.7; O2SAT 94
[2025-01-19 03:26] VITALS: BP 134/57; PULSE 89; RESP 18; TEMP 36.3; O2SAT 94
[2025-01-19 06:15] LABS: Hematocrit 39.8 % (40-54); Hemoglobin 12.5 g/dL (13.0-16.5); Immature Granulocytes Count 0.090 X10^3/uL (0.0-0.0); Mean Corp Hgb Conc 31.4 g/dL (32-36); Mean Corpuscular Volume 85.6 fL (80-94); Mean Platelet Vol. 9.6 fl (6.2-12.0); NRBC Flagged by Analyzer 0 % (0-5); Platelet Count 421 K/mm3 (150-450); RBC Distribution Width CV 16.5 % (11.6-14.6); RBC Distribution Width SD 51.1 fl (35.1-43.9); Red Blood Count 4.65 M/mm3 (4.6-6.2); White Blood Count 8.8 K/mm3 (4.4-11.0)
[2025-01-19 07:00] LABS: Anion Gap 12 (5-15); BUN 12 mg/dL (4-19); BUN/Creat Ratio 20.0 RATIO (10-20); Calcium,Total 9.3 mg/dL (7.6-11.0); Carbon Dioxide 25.1 mmol/L (21.0-32.0); Chloride 99 mmol/L (98-108); Estimated Creatinine Clearance 100.25 ml/min (50-250); Glucose 174 mg/dL (70-99); Potassium 4.2 mmol/L (3.3-5.1)
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
--- NOTE | 2025-01-19 08:35 | PCM.PN.HOSP ---
Reason for Visit Chief Complaint: confusion. Subjective Subjective Feeling well. Objective Data Objective Data Vital Signs: Vital Signs Temp Pulse Resp BP Pulse Ox O2 Del Method O2 Flow Rate 36.3 C L 89 18 134/57 H 94 Nasal Cannula 2 01/19/25 03:26 01/19/25 03:26 01/19/25 03:26 01/19/25 03:26 01/19/25 03:26 01/19/25 03:26 01/19/25 03:26 Oxygen Flow Rate (L/min) 2 Oxygen Delivery Method Nasal Cannula Weight: 104.8 kg Body Mass Index (BMI) 37.3 Intake & Output: Intake and Output for Last 24 Hours 01/17/25 01/18/25 01/19/25 23:59 23:59 23:59 Intake Total 3450.0 / 3450.0 50 / 50 Output Total 700 / 1300 3850 / 3850 400 / 400 Balance 2750.0 / 2150.0 -3800 / -3800 -400 / -400 Lab / Micro Data 01/19/25 05:06 01/19/25 05:06 Labs: Laboratory Results - last 24 hr 01/19/25 05:06: WBC 8.8, RBC 4.65, Hgb 12.5 L, Hct 39.8 L, MCV 85.6, MCH 26.9 L, MCHC 31.4 L, RDW Std Deviation 51.1 H, RDW Coeff of Josue 16.5 H, Plt Count 421, MPV 9.6, Immature Gran % (Auto) 1.000 H, Neut % (Auto) 64.0, Lymph % (Auto) 21.6, [place] % (Auto) 10.1 H, Eos % (Auto) 2.6, Baso % (Auto) 0.7, Absolute Neuts (auto) 5.6, Absolute Lymphs (auto) 1.89, Nucleated RBC % 0, Sodium 136, Potassium 4.2, Chloride 99, Carbon Dioxide 25.1, Anion Gap 12, BUN 12, Creatinine 0.58 L, Estim Creat Clear Calc 100.25, Est GFR (MDRD) Non-Af 106, BUN/Creatinine Ratio 20.0, Glucose 174 H, Calcium 9.3 Micro: Microbiology 01/17/25 10:51 Urine Catheter - Catheter Urine Culture - Preliminary Gram negative edward GNR lactose leather 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 qSOFA of 2 with encephalopathy and a respiratory rate of 22 Likely secondary to UTI. Follow-up cultures Continue with IV fluids (2) Urinary tract infection: PLAN: Catheter associated Received ceftriaxone given prior history of Klebsiella Continue ceftriaxone UCx growing out GNR and GNRLF. Monitor (3) Metabolic encephalopathy: PLAN: Resolved Secondary to sepsis and UTI Hold potentiating medications including baclofen PLAN: Plan Debility: Patient is bedbound at baseline. PT OT Hypothyroidism: Continue levothyroxine VTE prophylaxis with enoxaparin Charges/Coding Visit Charges Inpatient E&M: 02527 Subs Hosp L2
[2025-01-19 09:33] VITALS: BP 104/54; PULSE 85; RESP 16; TEMP 36.1; O2SAT 95
[2025-01-19] MEDS: 0.9% Saline Lock 10 ML Syringe IV (09:41)
--- NOTE | 2025-01-19 11:23 | CASEMGMT ---
JAZZY PAVON NOTE: Per DAVID Davis, referral to be sent to [facility]. Referral sent to moiz Almaguer liaison for [facility] via fax @ this time to: [phone]. Susan also requested medical alert info be provided. JAZZY PAVON took info into pt's room and given to pt at this time. Taina NEAL RN, CM
[2025-01-19 15:00] VITALS: BP 113/79; PULSE 92; RESP 20; TEMP 36.2; O2SAT 95
[2025-01-19 22:00] VITALS: BP 124/61; PULSE 88; RESP 16; TEMP 36.7; O2SAT 93
[2025-01-20 03:53] VITALS: BP 110/66; PULSE 82; RESP 16; TEMP 36.3; O2SAT 95
--- NOTE | 2025-01-20 08:21 | PN.HOSP_ITS ---
Reason for Visit Chief Complaint: confusion. Subjective Subjective Feeling good. Objective Data Objective Data Vital Signs: Vital Signs Temp Pulse Resp BP Pulse Ox O2 Del Method O2 Flow Rate 36.3 C L 82 16 110/66 95 Nasal Cannula 2 01/20/25 03:53 01/20/25 03:53 01/20/25 03:53 01/20/25 03:53 01/20/25 03:53 01/20/25 03:53 01/20/25 03:53 Oxygen Flow Rate (L/min) 2 Oxygen Delivery Method Nasal Cannula Weight: 104.8 kg Body Mass Index (BMI) 37.3 Intake & Output: Intake and Output for Last 24 Hours 01/18/25 01/19/25 01/20/25 23:59 23:59 23:59 Intake Total 50 / 50 800 / 800 Output Total 3850 / 3850 1000 / 1000 Balance -3800 / -3800 -200 / -200 Lab / Micro Data 01/19/25 05:06 01/19/25 05:06 Micro: Microbiology 01/17/25 10:35 Blood Culture (Wb) - Right Hand Blood Culture - Preliminary No growth in 48 hours. 01/17/25 10:35 Blood Culture (Wb) - Left Hand Blood Culture - Preliminary No growth in 48 hours. 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 qSOFA of 2 with encephalopathy and a respiratory rate of 22 Likely secondary to UTI. Cultures showing citrobacter freundii, providencia. DC with levofloxacin (2) Urinary tract infection: PLAN: Catheter associated Cultures showing citrobacter freundii, providencia. DC with levofloxacin (3) Metabolic encephalopathy: PLAN: Resolved Secondary to sepsis and UTI Hold potentiating medications including baclofen PLAN: Plan Debility: Patient is bedbound at baseline. PT OT Hypothyroidism: Continue levothyroxine VTE prophylaxis with enoxaparin DC home with [facility]
[2025-01-20 10:00] VITALS: BP 121/67; PULSE 87; RESP 18; TEMP 36.4; O2SAT 92
--- NOTE | 2025-01-20 11:17 | DS.PCM_ITS ---
Providers Date of Admission: 01/17/25 Primary Care Physician: Dr. 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 Routine Comment: 01/18/25 15:32 Consult: Inpatient Palliative Care Routine Consulting Provider: Susan Melton Reason for Consult: COPD,paraplegic spinal paralysis,W/C dependent,3rd hospitalization in 6 mo EMERGENT Consult: No MD Notified: Yes Date Notified: 01/18/25 Time Notified: 15:32 Method of Notification: Text 01/19/25 09:34 Consult: Hospice / Outpatient Palliative Care Routine Consulting Provider: Other Group- Specify Below Reason for Consult: COPD, paraplegic spinal paralysis EMERGENT Consult: No MD Notified: Yes Date Notified: 01/19/25 Time Notified: 09:34 Method of Notification: Text Comments:: Palliative referral Reason For Visit: UTI Diagnosis Discharge Diagnosis (1) Sepsis: Status: Acute Code(s): A41.9 - Sepsis, unspecified organism Plan: Present on admission. qSOFA of 2 with encephalopathy and a respiratory rate of 22 Likely secondary to UTI. Cultures showing citrobacter freundii, providencia. DC with levofloxacin (2) Urinary tract infection: Status: Inactive Code(s): N39.0 - Urinary tract infection, site not specified Plan: Catheter associated Cultures showing citrobacter freundii, providencia. DC with levofloxacin (3) Metabolic encephalopathy: Status: Acute Code(s): G93.41 - Metabolic encephalopathy Plan: Resolved Secondary to sepsis and UTI Hold potentiating medications including baclofen Plan Debility: Patient is bedbound at baseline. PT OT Hypothyroidism: Continue levothyroxine VTE prophylaxis with enoxaparin DC home with [facility] Medications at Discharge Home Medications levothyroxine 125 mcg tablet 125 mcg PO DAILY THYROID 12/17/17 tamsulosin 0.4 mg capsule 0.4 mg PO BID PROSTATE 12/17/17 icosapent ethyl 1 gram capsule (Vascepa) 2 g PO BIDCM cholesterol 02/08/22 omeprazole 40 mg capsule,delayed release 40 mg PO DAILY reflux 08/02/24 baclofen 20 mg tablet 20 mg PO BID PRN pain 08/07/24 meclizine 25 mg tablet 25 mg PO TID PRN dizziness #20 tabs 08/07/24 nitrofurantoin macrocrystal 50 mg capsule 50 mg PO QHS prevent infection 08/29/24 Held on 01/20/25. Instructions: Resume on 01/24/25. mecobalamin (vitamin B12) 500 mcg chewable tablet mcg PO DAILY supplement 01/17/25 acetaminophen 325 mg tablet 1,300 mg (4 x 325 mg) PO Q8H PRN PRN Pain 1-10 Or Fever>100.7 #0 tabs 01/20/25 levofloxacin 500 mg tablet 500 mg PO DAILY #3 tabs 01/20/25 Hospital Course Operations None Procedures None Summary of Care Provided Hospital Course: Greater than 30-minute spent on discharge patient presents with confusion from home. Patient was found to have a urinary tract infection with a sent to the emergency room. Patient was also clinically septic upon arrival. Patient overall proved, his mental status improved. Patient started ceftriaxone for the urinary tract infection. He also had metabolic encephalopathy but that did improve while he was here. Patient overall has done well since he has been here in the hospital. His urine culture grew out Citrobacter as well as Providencia. Both sensitive to levofloxacin which he will complete for 3 more doses completed 7-day course of antibiotics. Patient is bed ridden at bedside. Patient's takes care of him at home and has a Billy lift. Patient will be discharged home to continue with his home care. Weight / BMI Weight Weight: 104.8 kg Body Mass Index (BMI) 37.3 ABG / Lab / Microbiology Data 01/19/25 05:06 01/19/25 05:06 Microbiology: Microbiology 01/17/25 10:51 Urine Catheter - Catheter Urine Culture - Final Citrobacter freundii Providencia alcalifaciens 01/17/25 10:35 Blood Culture (Wb) - Right Hand Blood Culture - Preliminary No growth in 48 hours. 01/17/25 10:35 Blood Culture (Wb) - Left Hand Blood Culture - Preliminary No growth in 48 hours. D/C Instructions DC O2, CPAP, BIPAP Needs Home O2 Discharge instructions: No Meaningful Use Info Meaningful Use Meaningful Use Diagnoses (Choose all that apply): None applicable Discharge Plan Admission Admit Date/Time: 01/17/25 12:26 Primary Reason for Your Visit: Urinary tract infection Attending Provider: Basilio Dill Primary Care Provider: Brian Zimmerman Consulting Providers: Susan Metlon Discharge Orders/Prescriptions Prescriptions: New acetaminophen 325 mg Tablet 1,300 mg PO Q8H PRN PRN (Reason: Pain 1-10 Or Fever>100.7) Qty: 0 0RF levofloxacin 500 mg tablet 500 mg PO DAILY Qty: 3 0RF Continued tamsulosin 0.4 MG capsule 0.4 mg PO BID levothyroxine 125 MCG tablet 125 mcg PO DAILY Patient Comments: 1 extra pill on Sundays icosapent ethyl [Vascepa] 1 gram Capsule 2 g PO BIDCM baclofen 20 mg tablet 20 mg PO BID PRN meclizine 25 mg tablet 25 mg PO TID PRN (Reason: dizziness) Qty: 20 0RF omeprazole 40 mg capsule,delayed release(DR/EC) 40 mg PO DAILY mecobalamin (vitamin B12) 500 mcg tablet,chewable PO DAILY Held nitrofurantoin macrocrystal 50 mg capsule 50 mg PO QHS Hold Instructions: Resume on 01/24/25. Referrals / Follow Up: Brian Zimmerman MD [Primary Care Provider, Medical] - Within 2 Weeks [facility] [Non-Staff, Wound Care] - 02/06/25 3:15 pm Disposition Disposition (needs filled in before D/C Order can be placed): Home Health Service Charges/Coding Visit Charges Inpatient E&M: 66101 Disch Hosp >30min
[2025-01-20 11:51] VITALS: BP 121/67; PULSE 87; RESP 18; TEMP 36.4; O2SAT 92
--- NOTE | 2025-01-20 12:21 | PHA.DC.MC.R ---
Pharmacy [facility] Counseling Pharmacy Service has performed discharge medication reconciliation and counseling for this patient. The patient's discharge medication list was reviewed for discrepancies and discrepancies were resolved. The patient was counseled on the following discharge medications and changes in medications for homegoing were reviewed. The Reason for Use, instructions for use, and potential side effects were reviewed for all new medications. The patient's questions regarding all of their medications were answered. 1. Levofloxacin 500 mg PO daily x 3 days 2. Acetaminophen 1300 mg PO Q8H PRN pain The patient was able to verbally demonstrate an understanding of their discharge medications. Medications at Discharge Home Medications levothyroxine 125 mcg tablet 125 mcg PO DAILY THYROID 12/17/17 tamsulosin 0.4 mg capsule 0.4 mg PO BID PROSTATE 12/17/17 icosapent ethyl 1 gram capsule (Vascepa) 2 g PO BIDCM cholesterol 02/08/22 omeprazole 40 mg capsule,delayed release 40 mg PO DAILY reflux 08/02/24 baclofen 20 mg tablet 20 mg PO BID PRN pain 08/07/24 meclizine 25 mg tablet 25 mg PO TID PRN dizziness #20 tabs 08/07/24 nitrofurantoin macrocrystal 50 mg capsule 50 mg PO QHS prevent infection 08/29/24 Held on 01/20/25. Instructions: Resume on 01/24/25. mecobalamin (vitamin B12) 500 mcg chewable tablet mcg PO DAILY supplement 01/17/25 acetaminophen 325 mg tablet 1,300 mg (4 x 325 mg) PO Q8H PRN PRN Pain 1-10 Or Fever>100.7 #0 tabs 01/20/25 levofloxacin 500 mg tablet 500 mg PO DAILY #3 tabs 01/20/25
[2025-01-20 12:35] VITALS: O2SAT 87; O2SAT 94
[2025-01-20 12:37] VITALS: O2SAT 94
--- NOTE | 2025-01-20 14:00 | CASEMGMT ---
Addendum entered by Zhen Zarate 01/20/25 18:07: 1600: Portable O2 tank placed in pt's room from [employer]. JAZZY Hart, aware to be educated on portable tank and she to call [employer] prior to pt leaving [facility] to make arrangements for Home O2 delivery. Addendum entered by Zhen Zarate 01/20/25 17:35: 1430: Per JAZZY Hart, he has spoken w/pt's , she stated is okay with pt discharging home today, and will be coming in to take pt home after she gets off of work. Original Note: JAZZY PAVON NOTE: Discharge order is in. Home O2 testing has been completed. Pt qualifies for O2 @ 2 L/M continuous. Script obtained and sent to [employer] via [employer]. Call placed to pt's , Abraham. She was made aware pt is being discharged & that he qualifies for home O2 @ 2 L/M continuously. She was made aware a portable tank will be given to pt to go home on. Also made aware of importance of to call [facility] prior to leaving the hospital to arrange for additional O2 delivery @ home. Rx's have been sent to [facility], made aware. She confirms she did get the medical alert info and contact # for [facility] that JAZZY PAVON left in pt's room yesterday. Per Nohemy, wound nurse, wound care @ home to be the same as prior to admission. made aware. Discussed transportation home. states she can take pt home via their W/C van, if pt is alert enough and able to drive his electric W/C. She stated he has been groggy when she has been in to visit the last couple of days and that he was still hallucinating last evening when she was in. She inquired if this was still occurring, stating, if so, she does not feel pt is ready to discharge home today. JAZZY PAVON offered for to talk w/pt's RNTanner, who has been taking care of pt today, to discuss how he is doing today to help determine if she feels comfortable taking pt home today. She states she would like to do that. She denies having further discharge concerns or needs. Shamika @ [facility] made aware pt discharging today and qualifies for O2. After conversation w/, JAZZY PAVON informed JAZZY Hart, that has some questions and would like to discuss with him how pt has been doing today. He states he will call her. Taina SCHWARZN JAZZY CM
--- NOTE | 2025-02-03 10:38 | CASEMGMT ---
Palliative C/S follow-up JAZZY PAVON placed call to pt's , Abraham, to f/u on OP palliative referral that was sent to [facility] 01/19/25. states palliative has been out to see pt a couple of times already, but she states she thought it was [facility] that has been coming, not [facility], but she is not certain. She states things are going okay with palliative, but she has some further questions for them and plans to contact them re: those questions. JAZZY PAVON did place call to [facility] after phone call w/ to inquire if pt is active w/them & they state he is not a patient of there's. Taina SCHWARZN JAZZY PAVON
== END 2025-01-20 18:09 | disposition home health service (06) | DRG 698 ==
LOC: ED 12:04 → PCU 12:38
PROVIDERS: Emergency Provider Emergency Medicine; PCP Family Medicine
DX: T83.511A Infection and inflammatory reaction due to indwelling urethral catheter, initial encounter (principal); A41.9 Sepsis, unspecified organism; G93.41 Metabolic encephalopathy; E87.20 Acidosis, unspecified; G82.20 Paraplegia, unspecified; J44.9 Chronic obstructive pulmonary disease, unspecified; E03.9 Hypothyroidism, unspecified; Z93.3 Colostomy status; M41.9 Scoliosis, unspecified; N39.0 Urinary tract infection, site not specified; Z79.899 Other long term (current) drug therapy; Z87.891 Personal history of nicotine dependence; Z74.01 Bed confinement status; X58.XXXA Exposure to other specified factors, initial encounter
CPT/HCPCS: 36415; 71046; 80048; 80053; 81001; 83605; 85025; 87040; 87077; 87086; 87088; 87186; 93005; 97162; 97166; 99285; A4216; J0696

== ENCOUNTER 2025-02-13 15:09 | Outpatient (RCR) | payer MEDICARE, SELFPAY ==
[2025-02-13 15:16] VITALS: BP 150/96; PULSE 110; RESP 20; TEMP 35.6
--- NOTE | 2025-02-13 16:01 | PCM.WC.PN ---
History of Present Illness Date of Service: 02/13/25 Chief Complaint: Right ischial pressure sore, Stage IV. History of Wound: This is a 68-year-old white male who presented to the wound healing center with complaints of pressure ulcer to right buttock area with extension to the right ischial bone. This started in October,. Patient's was treating with OTC creams and keeping area clean. The ulcer starting increasing in size and went to the Emergency Department on 02/08/22. CT showed subcutaneous and deep soft tissue involvement and possible early abscess formation. The bone was not addressed. The patient has very limited mobility as a result of a prior spine injury/surgery. He utilizes a wheelchair at all times. He has not been using his lm lift at home to transfer but has been using a board to slide himself from his bed to chair at home. He sits in his wheelchair almost all day, not really able to change positions. They finally obtained a low air loss overlay to their regular mattress at home. A roho cushion was ordered for his wheelchair. Patient is a former smoker, he quit early 2023. Surgery 04/28/22 - Excision right ischial pressure sore, Stage IV, with partial ostectomy for osteomyelitis. Size of wound 8 x 7 x 4.5 cm. Operative tissue cultures positive for MSSA and Cutibacterium acnes. Bone cultures positive for MSSA and Corynebacterium striatum. He is being treated with Augmentin. Pathology from surgery 04/28/22 showed chronic reparative and reactive change. No evidence of acute osteomyelitis. He had a diverting colostomy placed on 11/21/[address] Romero. Surgery 08/26/23 - Excision recurrent right ischial pressure sore, Stage IV, with partial ostectomy for osteomyelitis. Discharged home on 08/27/23. Pathology right ischial pressure sore soft tissue showed focal ulceration, acute and chronic inflammation an granulation tissue reaction. Right ischial bone, partial ostectomy showed fragments of bone with chronic inflammation and reactive changes, negative for acute osteomyelitis. Operative soft tissue cultures from 08/26/23 positive for Serratia marcescens, Staphylococcus capitis, and Corynebacterium striatum. Operative bone cultures from 08/26/23 positive for Serratia marcescens and Corynebacterium striatum. He was started on Levaquin and Doxycycline until he can be seen by ID on 11/04/23. Subjective Subjective 03 October 2024: The patient is a 69-year-old male presenting with wound healing issues. The wound has been problematic, with the patient experiencing pain and difficulty with previous wound vac therapy due to its tendency to dislodge. Currently, the wound is being managed with saline dressings, which appear to be promoting healing as granulation tissue is present. The patient also reports experiencing hallucinations, such as seeing animals that are not present. These hallucinations may be related to the antibiotics being taken for infection control. Attestation: Documentation on this patient encounter was supported using ambient scribe technology/ voice AI technology. The patient consented to recording for the purpose of documenting the encounter. Provider reviewed content of the generated note prior to signature. 14 November 2024: is having trouble at home with the patient as he is having intermittent delirium at night. He has had several UTIs and has been in the hospital over the past year. She has been doing excellent wound care to the ischial wound. Concerns for infection at. 26 Dec 2024: Patient here today for wound check. He is very conversant today and appears to be doing rather well. He seems to have more energy and is more conversant. He endorses excellent care from his who was present at the visit today. Current encounter, 13 February 2025: Patient now on oxygen at home secondary to recent complications surrounding a UTI and hospital admission. Patient's reports that she is pursuing hospice for the patient at home and has been accepted to a hospice program. They do not have a physician who can manage the wound and would like to continue for wound care with the wound care center. Objective Data Objective Data Vital Signs: Vital Signs Temp Pulse Resp BP O2 Del Method O2 Flow Rate 96.1 F L 110 H 20 H 150/96 H Nasal Cannula 2 02/13/25 15:16 02/13/25 15:16 02/13/25 15:16 02/13/25 15:16 02/13/25 15:16 02/13/25 15:16 Oxygen Flow Rate (L/min) 2 Oxygen Delivery Method Nasal Cannula Charges/Coding Visit Charges Office Visits / Consults: 46619 OV L2 Est 10min Physical Exam Narrative Persistent right ischial wound Wound examination reveals no fluid collections and presence of granulation tissue. No drainage. Surrounding skin appears healthy Measured 3 x 4 cm today and 4 cm deep, with firm strong bone at the base of the wound Const alert and oriented x3 General Appearance: cooperative Resp normal respiratory effort GI GI Narrative: Diverting ostomy is present and is productive Debridement Note Debridement Note No debridement was completed: No debridement was completed today Post-Debridement Measurements and Additional Note: Post-Debridement Measurements/Treatment WC - Nurse 1 - General Ulcer Assessment Start: 02/13/25 15:16 Freq: Status: Active Protocol: KIRA Activity Type Activity Date Activity User E-sign Co-sign Detail Recorded Client Recorded Date Recorded By Document 02/13/25 15:16 DS [id number] 02/13/25 15:31 DS 02/13/25 15:16 WC - Today's Visit Information Type of service 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 Any new allergies or adverse reactions No Had a fall/change in ADL's that may No increase risk of falls Signs or symptoms of abuse and/or No neglect since last visit Have you been in the hospital since your No last visit? Has dressing in place as prescribed Yes Has compression in place as prescribed N/A Has offloadiing in place as prescribed N/A Experienced any changes in pain level or No management Pain Scale: 0-10 Numeric Is Patient Pain Free? Yes - Nurse 1 - General Ulcer Measurement Start: 02/13/25 15:16 Freq: Status: Active Protocol: Activity Type Activity Date Activity User E-sign Co-sign Detail Recorded Client Recorded Date Recorded By Document 02/13/25 15:16 DS [id number] 02/13/25 15:31 DS 02/13/25 15:16 Wound Center Nurse 1 #5- R ischium Post op -Current Size (cm) - Length 2.6 -Current Size (cm) - Width 2 -Current Size (cm) - Depth 5.4 -Total Square Cm 5.2 -Tunneling Yes -Tunneling Position (O'clock) 12 -Tunneling Distance (cm) 5 -Exudate Amt Medium -Exudate Type Serosanguineous -Wound Margin Distinct, Outline Attached -Granulation Amt Medium (34-66%) -Granulation Quality [place] -Necrosis Amt None Present (0 %) -Texture (Michelle-wound Skin Appearance) Assessed -Moisture (Michelle-wound Skin Appearance) Maceration -Color (Michelle-wound Skin Appearance) Assessed -Temperature (Michelle-wound Skin No Abnormality Appearance) (Pt Warm) -Tenderness on Palpation (Michelle-wound Yes Skin Appearance) -Ulcer Cleansing Soap and Water -Foul Odor after Cleansing No -Anesthetic Used 4% Lidocaine Solution WC - Nurse 2 - General Ulcer CM Notes Start: 02/13/25 15:16 Freq: Status: Active Protocol: Activity Type Activity Date Activity User E-sign Co-sign Detail Recorded Client Recorded Date Recorded By Document 02/13/25 15:50 ESTER [id number] 02/13/25 15:52 02/13/25 15:50 Wound Center Nurse 2 -Correct Patient Yes -Correct Side, Site, Position No -Correct Procedure No -Procedure Performed No -Post Debridement (cm) - Length 2 -Post Debridement (cm) - Width 3 -Post Debridement (cm) - Depth 4 -Total Square (Post) (cm) 6 -Area of Debridement (cm) - Length 2 -Area of Debridement (cm) - Width 3 -Total Square (Area) (cm) 6 -Wound/Ulcer Outcome Not Healed -Debridement - Subq, 1st 20sq cm No -Debridement - Muscle / Fascia, 1st No 20sq cm Pain Scale: 0-10 Numeric Is Patient Pain Free? Yes Assessment/Plan Assessment/Plan (1) Decubitus ulcer of right buttock, stage 3: CODE(S): L89.313 - Pressure ulcer of right buttock, stage 3 PLAN: Continue supportive care for the wound as the patient is not a flap candidate per discussion with the family and the patient (cannot follow positioning restrictions and is not interested in large surgery). Continue pressure offloading with the offloading bed and nutrition support (high-protein diet and continue to follow-up with our nutrition team) PLAN: Plan - Continue saline dressings twice daily to temporize wound - Attend the follow-up wound check in six weeks Patient's will continue to do dressing changes throughout hospice course to keep the wound clean. I talked her about the need to do so to prevent an infection and pain. She was in agreement
== END 2025-02-26 23:59 | disposition home or self-care (01) ==
LOC: WC 15:09
PROVIDERS: PCP Family Medicine; Referring Provider Physician Assistant; Visit Provider Surgery Plastic and Reconstructive Surgery
DX: L89.313 Pressure ulcer of right buttock, stage 3 (principal); Z87.891 Personal history of nicotine dependence; R41.0 Disorientation, unspecified; Z87.440 Personal history of urinary (tract) infections; Z99.3 Dependence on wheelchair; E46 Unspecified protein-calorie malnutrition; E78.00 Pure hypercholesterolemia, unspecified; Z99.81 Dependence on supplemental oxygen; R44.3 Hallucinations, unspecified
CPT/HCPCS: 97803; 99213; G0463

== ENCOUNTER 2025-02-22 11:46 | Inpatient (IN) | payer MEDICARE, SELFPAY ==
[2025-02-22] VITALS (27 sets, daily range): BP systolic 98–145; BP diastolic 44–100; PULSE 55–80; RESP 15–25; TEMP 35.8–37; O2SAT 92–100; BMI 41.3; BMI 37.5
[2025-02-22 11:58] LABS: Base Excess 12 mmol/L (-2 to +2); PEEP 5; PO2 74 mmHG (75-100); SITE L Radial; SO2 92 % (94-98)
--- NOTE | 2025-02-22 12:00 | CT_ITS ---
PROCEDURE: BRAIN/HEAD WITHOUT CONTRAST 02/22/2025 REASON FOR EXAM: AMS TECHNIQUE: Procedure Code: CTBR Modality: CT Procedure: BRAIN/HEAD WITHOUT CONTRAST Coronal and Sagittal reconstruction series were provided. One or more dose reduction techniques were used (e.g., Automated exposure control, adjustment of the mA and/or kV according to patient size, use of iterative reconstruction technique. RADIATION DOSE SUMMARY: CTDlvol: 44.99 mGy DLP: 796 mGycm COMPARISON: 08/07/2024 FINDINGS: BRAIN: No acute intraparenchymal hemorrhage. No mass lesion. No CT evidence for acute territorial infarct. No midline shift or extra-axial collection. Unchanged right temporal lobe encephalomalacia/resection cavity. Patchy periventricular white matter low attenuation, likely microvascular ischemic changes. VENTRICLES: No hydrocephalus. ORBITS: The orbits are unremarkable. SINUSES AND MASTOIDS: Periosteal thickening of both maxillary sinus with mild mucosal thickening on the right. Prior right-sided mastoidectomy. A few inferior left mastoid air cells are opacified. SOFT TISSUES: No acute abnormality seen. BONES: No acute osseous abnormality seen. Prior right pterional craniotomy. OTHER: Calcified carotid siphons and vertebral arteries. CT/Brain/Head without Contrast IMPRESSION: No acute intracranial abnormality. Reading Location: [id number]
--- NOTE | 2025-02-22 12:01 | EKG12_ITS ---
Test Reason : alt loc Blood Pressure : */* mmHG Vent. Rate : 69 BPM Atrial Rate : 69 BPM P-R Int : 156 ms QRS Dur : 80 ms QT Int : 366 ms P-R-T Axes : 63 57 54 degrees QTcB Int : 392 ms Normal sinus rhythm Normal ECG Confirmed by SPENCER COWART ([id number]), multimedia editor SARAH CEVALLOS ([id number]) on 02/27/2025 6:31:14 AM Referred By: Confirmed By: SPENCER COWART
--- NOTE | 2025-02-22 12:01 | RAD_ITS ---
PROCEDURE: CHEST 1 VIEW (PORTABLE) 02/22/2025 REASON FOR EXAM: HYPOXIA TECHNIQUE: Frontal view of the chest. COMPARISON: Chest x-ray examinations 01/17/2025 and of 08/07/2024 RAD/Chest 1 View (Portable) IMPRESSION: Prior lower cervical surgery is again noted. Thoracic dextroscoliosis is again seen. Lungs are hypoinflated. The cardiomediastinal silhouette is remarkable for a tortuous aorta. No eviden ce of cardiomegaly. Increased bibasilar airspace disease is seen, likely due to the presence of ate lectasis and/or pneumonitis. Questionable small right pleural effusion. No pneumothorax is noted. No acute osseous change is seen. Reading Location: [id number]
[2025-02-22 12:12] LABS: Hematocrit 38.9 % (40-54); Hemoglobin 11.6 g/dL (13.0-16.5); Immature Granulocytes Count 0.060 X10^3/uL (0.0-0.0); Mean Corp Hgb Conc 29.8 g/dL (32-36); Mean Corpuscular Volume 90.7 fL (80-94); Mean Platelet Vol. 9.7 fl (6.2-12.0); NRBC Flagged by Analyzer 0.3 % (0-5); Platelet Count 290 K/mm3 (150-450); RBC Distribution Width CV 16.6 % (11.6-14.6); RBC Distribution Width SD 54.5 fl (35.1-43.9); Red Blood Count 4.29 M/mm3 (4.6-6.2); White Blood Count 6.9 K/mm3 (4.4-11.0)
[2025-02-22 12:25] LABS: Prothrombin Time (Protime)PT. 12.9 SECONDS (11.7-14.9)
[2025-02-22 12:26] LABS: Partial Thromboplast Time 27.6 Seconds (24.1-36.2)
[2025-02-22 12:40] LABS: AST(SGOT) 15 U/L (<=37); Alanine Aminotransfer ALT/SGPT 22 U/L (<=46); Albumin, Serum 3.3 g/dL (3.4-4.8); Alkaline Phosphatase 99 U/L (40-129); Anion Gap 8 (5-15); BUN 10 mg/dL (4-19); BUN/Creat Ratio 14.0 RATIO (10-20); Calcium,Total 8.9 mg/dL (7.6-11.0); Carbon Dioxide 35.1 mmol/L (21.0-32.0); Chloride 96 mmol/L (98-108); Estimated Creatinine Clearance 105.90 ml/min (50-250); Globulin 3.7 g/dL (2.2-4.2); Glucose 236 mg/dL (70-99); Potassium 4.5 mmol/L (3.3-5.1); Troponin T High Sensitivity 32 ng/L (<=22)
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
[2025-02-22] MEDS: 0.9% Normal Saline (1000mL) 1,000 ML 150 ML IV (13:14)
[2025-02-22 13:27] LABS: Mucous, Urine 0 SEEN /hpf (<or=2+); Squamous Epithelial Cells - UA 0 SEEN /hpf (0-5)
[2025-02-22 13:33] LABS: Color, Urine Yellow (Yellow); Glucose, Dipstick Normal (Normal); Ketone-Dipstick Negative (Negative); Leukocyte Esterase-Dipstick 500 /ul (Negative); Nitrite-Dipstick Positive (Negative); Occult Blood-Urine 150 /ul (Negative); Protein-Dipstick 100 mg/dl (Negative); Specific Gravity, Urine 1.015 (1.002-1.030); Urine Bilirubin Dipstick Negative (Negative)
[2025-02-22 13:40] LABS: Red Blood Cells-Urine 10-25 SEEN /hpf (0-5)
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
--- NOTE | 2025-02-22 14:09 | CPS ---
Per pt placed on NC at this time
[2025-02-22 14:26] LABS: Troponin T High Sens 2 HR 31 ng/L (<=22)
[2025-02-22] MEDS: levoFLOXacin IV 500 MG/100 ML BAG 100 MG IV (14:27)
[2025-02-22 15:03] LABS: Base Excess 11 mmol/L (-2 to +2); FI02 3.0; PO2 58 mmHG (75-100); SITE R Radial; SO2 85 % (94-98)
--- NOTE | 2025-02-22 16:08 | CT_ITS ---
EXAM: CT Angiography Chest Without and With Intravenous Contrast CLINICAL INDICATION: ACUTE HYPOXIC AND HYPERCAPNIC RESPIRATORY FAILURE TECHNIQUE: Axial computed tomographic angiography images of the chest without and with intravenous contrast. This CT exam was performed using one or more of the following dose reduction techniques: automated exposure control, adjustment of the mA and/or kV according to patient size, and/or use of iterative reconstruction technique. MIP reconstructed images were created and reviewed. CONTRAST: 100 cc Isovue-300 RADIATION DOSE: CTDIvol = 15.8 mGy, DLP = 629. MGy-cm COMPARISON: No relevant prior studies available. FINDINGS: PULMONARY ARTERIES: Multiple pulmonary emboli in the segmental branch of the pulmonary arteries of the right upper, middle and lower lobes. RV ratio 0.85. AORTA: No acute findings. No thoracic aortic aneurysm. LUNGS AND PLEURAL SPACES: Emphysematous lung changes. Left pleural effusion. Bilateral lower lobe atelectasis or pneumonia. No mass. HEART: Unremarkable. No cardiomegaly. No significant pericardial effusion. No evidence of RV dysfunction. MEDIASTINUM: Scattered mediastinal lymph nodes some of which are upper limits of normal in size and are most likely reactive lymph nodes. BONES/JOINTS: No acute fracture. No dislocation. SOFT TISSUES: Unremarkable. LYMPH NODES: See above. CT/CTA Chest W/WO Contrast IMPRESSION: 1. Multiple pulmonary emboli in the segmental branch of the pulmonary arteries of the right upper, middle and lower lobes. RV ratio 0.85. 2. Emphysematous lung changes. Left pleural effusion. Bilateral lower lobe a telectasis or pneumonia. 3. Scattered mediastinal lymph nodes some of which are upper limits of normal in size and are most likely reactive lymph nodes. Red Alert: Multiple pulmonary emboli in the segmental branch of the pulmonary a rteries of the right upper, middle and lower lobes The critical findings in the findings and impression above were relayed directl y by me by telephone to Keeley Donnelly on 02/22/2025 at 11:00 pm with readback verification. Reading Location: [id number]
[2025-02-22] MEDS: 0.9% Saline Lock 10 ML Syringe IV ×2 (16:48→21:30)
[2025-02-22 17:11] LABS: Base Excess 11 mmol/L (-2 to +2); Comment AVAPS; FI02 40.0; PEEP 10; PO2 92 mmHG (75-100); RR 14; SITE L Radial; SO2 96 % (94-98)
[2025-02-22 17:53] LABS: Troponin T High Sens 4 HR 29 ng/L (<=22)
[2025-02-22] MEDS: Piperacil/Tazobactam 3.375 GM in 0.9% Normal Saline (50mL MB+) 50 ML IV (21:27)
[2025-02-23] VITALS (25 sets, daily range): BP systolic 99–134; BP diastolic 51–95; PULSE 47–84; RESP 16–24; TEMP 36.6–37.2; O2SAT 93–100; BMI 37.7
--- NOTE | 2025-02-23 00:33 | CPS ---
EPAP decreased to +8 by hospitalist
[2025-02-23] MEDS: 0.9% Normal Saline (1000mL) 1,000 ML 150 ML IV ×4 (01:15→21:05)
[2025-02-23] MEDS: HEPARIN/D5w 25,000 UNITS 25,000 UNITS/250 ML IV.SOLN. 15.9 UNITS CONT INF (02:40)
[2025-02-23] MEDS: Heparin Injection (Vial) 5,000 UNIT/ML VIAL 8500 UNIT IV (02:41)
[2025-02-23 02:57] LABS: Hematocrit 37.4 % (40-54); Hemoglobin 11.3 g/dL (13.0-16.5); Immature Granulocytes Count 0.050 X10^3/uL (0.0-0.0); Mean Corp Hgb Conc 30.2 g/dL (32-36); Mean Corpuscular Volume 89.5 fL (80-94); Mean Platelet Vol. 10.3 fl (6.2-12.0); NRBC Flagged by Analyzer 0 % (0-5); Platelet Count 288 K/mm3 (150-450); RBC Distribution Width CV 17.0 % (11.6-14.6); RBC Distribution Width SD 55.5 fl (35.1-43.9); Red Blood Count 4.18 M/mm3 (4.6-6.2); White Blood Count 6.3 K/mm3 (4.4-11.0)
[2025-02-23 03:55] LABS: Prothrombin Time (Protime)PT. 15.7 SECONDS (11.7-14.9)
[2025-02-23 04:02] LABS: Anion Gap 11 (5-15); BUN 11 mg/dL (4-19); BUN/Creat Ratio 18.7 RATIO (10-20); Calcium,Total 8.8 mg/dL (7.6-11.0); Carbon Dioxide 28.8 mmol/L (21.0-32.0); Chloride 97 mmol/L (98-108); Estimated Creatinine Clearance 100.70 ml/min (50-250); Glucose 350 mg/dL (70-99); Potassium 4.4 mmol/L (3.3-5.1)
[2025-02-23 04:12] LABS: Partial Thromboplast Time > 250.0 Seconds (24.1-36.2)
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
[2025-02-23] MEDS: Piperacil/Tazobactam 3.375 GM in 0.9% Normal Saline (50mL MB+) 50 ML IV ×2 (06:37→13:11)
[2025-02-23 06:44] LABS: Allen Test Positive; Base Excess 8 mmol/L (-2 to +2); FI02 30.0; PEEP 8; PO2 35 mmHG (75-100); RR 16; SITE R Radial; SO2 67 % (94-98)
--- NOTE | 2025-02-23 08:10 | ECHOCS_ITS ---
Reason For Study Reason For Study: DYSPNEA/SOB Procedure This was a 2D Doppler, Color Flow transthoracic echocardiogram. The study was technically difficult. Contrast injection was performed. Exam performed portable in ICU/CCU. Left Ventricle Normal LV size. Left ventricular systolic function is normal. The left ventricular ejection fraction is 65 %. Normal diastology for age. No regional wall motion abnormalities noted. Right Ventricle Normal RV size. Normal systolic function. Atria Normal left atrium. Normal right atrium. Mitral Valve Normal mitral valve. Trivial mitral valve insufficiency. Tricuspid Valve Normal tricuspid valve. Unable to estimate RV systolic pressure due to insufficient tricuspid regurgitant envelope. Aortic Valve Trisinus/trileaflet aortic valve. Mild focal aortic valve thickening. Aortic sclerosis, no stenosis. Pulmonic Valve The pulmonic valve is not well visualized. Great Vessels Normal aortic root. The inferior vena cava is dilated. and does not collapse. Medication Diluted definity 1ml given slow IV push to enhance endocardial definition. MMode/2D Measurements & Calculations LVIDd: 4.0 cm IVSd: 0.91 cm asc Aorta Diam: 3.3 cm LVIDs: 2.3 cm LVPWd: 1.0 cm RVDd: 3.9 cm FS: 42.6 % LAV(MOD-bp): 28.1 ml LVAd ap4: 23.6 cm2 LVAd ap2: 31.0 cm2 LAV(MOD-bp) Indexed: 12.9 ml/m2 LVLd ap4: 7.5 cm LVLd ap2: 8.3 cm LAV(MOD-sp2): 22.6 ml EDV(MOD-sp4): 62.5 ml EDV(MOD-sp2): 98.3 ml LAV(MOD-sp4): 33.4 ml EDV(sp4-el): 63.0 ml EDV(sp2-el): 98.0 ml LVAs ap4: 11.3 cm2 LVAs ap2: 15.6 cm2 LVLs ap4: 6.0 cm LVLs ap2: 6.3 cm ESV(MOD-sp4): 18.7 ml ESV(MOD-sp2): 32.8 ml ESV(sp4-el): 18.3 ml ESV(sp2-el): 32.7 ml EF(MOD-sp4): 70.1 % EF(MOD-sp2): 66.7 % EF(sp4-el): 70.9 % SV(MOD-sp4): 43.9 ml SV(MOD-sp2): 65.5 ml SV(sp4-el): 44.7 ml SI(MOD-sp4): 20.2 ml/m2 SI(MOD-sp2): 30.2 ml/m2 LA A4 area: 14.3 cm2 LA dimension(2D): 3.4 cm RA A4 area: 12.6 cm2 TAPSE: 1.8 cm Time Measurements MV dec time: 0.28 sec Doppler Measurements & Calculations MV E max jorge: 118.9 cm/sec Lat Peak E' Jorge: 11.5 cm/sec Med Peak E' Jorge: 10.4 cm/sec MV A max jorge: 95.7 cm/sec E/E' lat: 10.3 E/E' med: 11.4 MV E/A: 1.2 Ao V2 max: 191.5 cm/sec LV V1 max: 126.3 cm/sec MV dec slope: 421.6 cm/sec2 Ao max P.7 mmHg LV V1 max P.4 mmHg Ao V2 mean: 113.3 cm/sec LV V1 mean P.6 mmHg Ao mean P.2 mmHg LV V1 mean: 73.3 cm/sec Ao V2 VTI: 31.5 cm LV V1 VTI: 21.8 cm AV (velocity ratio): 0.69 PA V2 max: 97.4 cm/sec ECHO/Echo Complete W/ Contrast Interpretation Summary The left ventricular ejection fraction is 65 %. Normal LV size. No significant valvular disease. Contrast injection was performed. Ordering Physician: Francisco Mckeon Referring Physician: Brian Zimmerman Performed By: Roland Chang RDCS
[2025-02-23] MEDS: 0.9% Saline Lock 10 ML Syringe IV (11:56)
[2025-02-23 12:17] LABS: Partial Thromboplast Time 56.6 Seconds (24.1-36.2)
--- NOTE | 2025-02-23 17:34 | PCM.PN.HOSP ---
Reason for Visit Chief Complaint: altered mental status Subjective Subjective Pt sitting up in bed, reports feeling a little bit better, presently off bipap on my eval, does report shortness of breath but he is unsure if it is worse than baseline as he notes COPD, does note some cough Objective Data Objective Data Vital Signs: Vital Signs Temp Pulse Resp BP Pulse Ox O2 Del Method O2 Flow Rate 98.9 F 70 17 114/58 L 97 Nasal Cannula 3 02/23/25 16:00 02/23/25 16:00 02/23/25 16:00 02/23/25 16:00 02/23/25 16:00 02/23/25 16:00 02/23/25 16:00 FiO2 40 02/23/25 07:00 Oxygen Flow Rate (L/min) 3 Oxygen Delivery Method Nasal Cannula Weight: 106.5 kg Body Mass Index (BMI) 37.7 Intake & Output: Intake and Output for Last 24 Hours 02/21/25 02/22/25 02/23/25 23:59 23:59 23:59 Intake Total 1100 / 1100 3038.69 / 3038.69 Output Total 375 / 375 675 / 675 Balance 725 / 725 2363.69 / 2363.69 Lab / Micro Data 02/23/25 02:20 02/23/25 03:35 Labs: Laboratory Results - last 24 hr 02/22/25 16:48: Troponin T Hi Sens 4Hr 29 H 02/23/25 02:20: WBC 6.3, RBC 4.18 L, Hgb 11.3 L, Hct 37.4 L, MCV 89.5, MCH 27.0, MCHC 30.2 L, RDW Std Deviation 55.5 H, RDW Coeff of Josue 17.0 H, Plt Count 288, MPV 10.3, Immature Gran % (Auto) 0.800, Neut % (Auto) 76.7 H, Lymph % (Auto) 18.1 L, [place] % (Auto) 4.0, Eos % (Auto) 0.2, Baso % (Auto) 0.2, Absolute Neuts (auto) 4.8, Absolute Lymphs (auto) 1.13, Nucleated RBC % 0, PT Cancelled, INR Cancelled, APTT Cancelled 02/23/25 03:35: PT 15.7 H, INR 1.2, APTT > 250.0 H*, Sodium 136, Potassium 4.4, Chloride 97 L, Carbon Dioxide 28.8, Anion Gap 11, BUN 11, Creatinine 0.59 L, Estim Creat Clear Calc 100.70, Est GFR (MDRD) Non-Af 106, BUN/Creatinine Ratio 18.7, Glucose 350 H, Calcium 8.8 02/23/25 12:00: APTT 56.6 H Micro: Microbiology 02/22/25 13:24 Urine, Catheterized Urine Culture - Preliminary GNR lactose oral and maxillofacial surgery resident GNR lactose oral and maxillofacial surgery resident#2 Alpha hemolytic organism 02/22/25 12:07 Blood Culture (Wb) - Anticubital Left Bacteria Detection (PCR) - Final Strep not Strep pneumo 02/22/25 12:07 Blood Culture (Wb) - Anticubital Left Blood Culture - Preliminary 02/22/25 12:45 Mucosa - Nose SARS-CoV-2, Influenza & RSV (PCR) - Final ABG Data ABG results: ABG 02/22/25 02/23/25 12:01 06:40 Specimen Type Cancelled LUZ ELENA Sample Site Cancelled R Radial pH Cancelled 7.42 Bicarbonate Actual Cancelled 32.6 H Total CO2 Cancelled 34 Base Excess Cancelled 8 H O2 Saturation Cancelled 67 L O2 % Cancelled 30.0 ABG pCO2 Cancelled 50.7 H ABG pO2 Cancelled 35 L* Rafal Test Cancelled Positive Respiration Rate Cancelled 16 O2 Delivery Device Cancelled BiPAP Liter Flow Cancelled Minute Volume Cancelled Vent Mode Cancelled Not entered Inspiratory Time Cancelled Expiratory Time Cancelled Tidal Volume Cancelled 500.0 Mean Airway Pressure Cancelled POC PEEP Cancelled 8 Peak Inspir Pressure Cancelled POC Pressure Suppt Cancelled Pressure Control Cancelled Pressure High Cancelled Pressure Low Cancelled Time High Cancelled Time Low Cancelled EPAP Cancelled IPAP Cancelled Blood Gas Comments Cancelled Crit Call To/Read Back Cancelled Yes Blood Gas Notified Whom Cancelled DRWILBERT Blood Gas Notified Time Cancelled 06:42:17 Clinical Comments Cancelled Radiography Diagnostic Testing: Radiology Impression Chest CTA 02/22/25 16:08 IMPRESSION: 1. Multiple pulmonary emboli in the segmental branch of the pulmonary arteries of the right upper, middle and lower lobes. RV ratio 0.85. 2. Emphysematous lung changes. Left pleural effusion. Bilateral lower lobe atelectasis or pneumonia. 3. Scattered mediastinal lymph nodes some of which are upper limits of normal in size and are most likely reactive lymph nodes. Red Alert: Multiple pulmonary emboli in the segmental branch of the pulmonary arteries of the right upper, middle and lower lobes The critical findings in the findings and impression above were relayed directly by me by telephone to Keeley Donnelly on 02/22/2025 at 11:00 pm with readback verification. Reading Location: [facility] Physical Exam Narrative General: Alert, answers questions appropriately, no apparent distress HEENT: Atraumatic, normocephalic Eyes: Anicteric Neck: Supple Respiratory: Slightly tachypneic with increased respiratory effort, poor airflow Cardiovascular: Regular rate and rhythm GI: Soft, nontender, nondistended Extremities: No significant pitting edema Musculoskeletal: Patient chronically wheelchair-bound Neuro: Patient chronically wheelchair-bound Skin: No overt rashes appreciated Psych: Cooperative Assessment & Plan Assessment/Plan (1) Acute respiratory failure with hypoxia and hypercapnia: PLAN: Plan 69-year-old male history of BPH, hypothyroidism, GERD, COPD, wheelchair bound with chronic suprapubic catheter who presented [facility] ED 02/22/2025 after being found unresponsive. EMS notes he was significantly hypoxic as well and per report has been wearing home oxygen over the past few weeks. Was also noted he was found with his suprapubic catheter pulled out. In the ED temp 96.4, heart rate of 80, respiratory rate 16 and blood pressure 109/44, pulse ox 100% however patient on BiPAP. In ED white count 6.9, hemoglobin 11.6, bicarb on BMP 35 with a BUN of 10 and creatinine 0.71, glucose 236. Lactic 1.3. UA suggestive of UTI. Patient did have ABG obtained which showed a pH of 7.32, bicarb 38.4, and pCO2 of 74.6 with PaO2 of [address] no acute process and chest x-ray with increased bibasilar airspace disease. Patient given antibiotics and hospitalist contacted for admission for acute on chronic hypoxic hypercapnic respiratory failure. # Acute hypoxic hypercapnic respiratory failure secondary to multiple pulmonary emboli - Patient was found hypoxic and unresponsive at home and here was necessitating BiPAP to maintain sats, also found to be hypercapnic with pCO2 of 74.6 and a pH of 7.32 - Patient was placed on BiPAP and admitted to ICU with slow improvement in respiratory status and mental status -Given bibasilar airspace disease there was question of pneumonia or pneumonitis, CTA demonstrated multiple pulmonary emboli in the segmental branch pulmonary arteries in the right upper, middle, and lower lobes and questioned bilateral lower lobe atelectasis or pneumonia -Patient covered with antibiotics as below - Pulm/crit following -Continue nebs -Continue heparin -Incentive spirometer - Ultimately will need outpatient pulm follow-up # Acute metabolic encephalopathy -Secondary to hypercapnia and UTI -Mental status improving after BiPAP but family at bedside report he still not back to baseline -BiPAP nightly and with naps -Continue antibiotics # Acute pulmonary emboli -CTA demonstrated multiple pulmonary emboli in the segmental branch of the pulmonary arteries in the right upper, middle, and lower lobes with RV ratio 0.85 -Patient on heparin drip -Echo ordered # Urinary tract infection - UA suggestive of UTI -Preliminary urine culture with 2 gram-negative edward lactose oral and maxillofacial surgery resident's and alphahemolytic organism -1 blood culture preliminarily growing strep, not strep pneumo, other culture thus far no growth to date -Given the 2 most recent urine cultures being intermediate sensitivity to Zosyn and resistant to Levaquin we will switch to cefepime #Type 2 diabetes mellitus -Do not see where patient is on anything at home however he had an A1c back in July of 7.1 -Additionally patient hyperglycemic -Glucose checks and sliding scale insulin -Will recheck A1c # Chronic debility and suprapubic catheter as well as colostomy - Patient wheelchair-bound at baseline - Had pulled out his suprapubic catheter and this was reinserted in the ED - Patient with colostomy #Hypothyroidism -Continue Synthroid #Chronic BPH with obstruction -Continue home medications #GERD -Continue PPI #DVT ppx: Heparin subcu Juliana Shaw MD Time spent in the patient's overall evaluation, decision-making process, review of diagnostic data, adjustment of management, discussion with other providers, nursing and ancillary staff involved in patient's care documentation,57 Minutes Charges/Coding Visit Charges Inpatient E&M: 24229 [facility] L3
[2025-02-23] MEDS: Cefepime HCl 2 GM in 0.9% Normal Saline (100mL MB+) 100 ML IV ×2 (17:44→23:07)
[2025-02-23 18:44] LABS: Partial Thromboplast Time 44.5 Seconds (24.1-36.2)
[2025-02-23] MEDS: Heparin Nomogram Adjustment 5,000 UNIT/ML VIAL IV (19:25)
[2025-02-23] MEDS: HEPARIN/D5w 25,000 UNITS 25,000 UNITS/250 ML IV.SOLN. 13.7 UNITS CONT INF (21:11)
[2025-02-24] VITALS (10 sets, daily range): BP systolic 137–155; BP diastolic 58–82; PULSE 59–83; RESP 16–24; TEMP 36.6–36.9; O2SAT 96–989; BMI 39.2
[2025-02-24 01:57] LABS: Partial Thromboplast Time 59.5 Seconds (24.1-36.2)
[2025-02-24] MEDS: 0.9% Saline Lock 10 ML Syringe IV ×2 (03:20→22:37)
[2025-02-24 03:32] LABS: Hematocrit 34.5 % (40-54); Hemoglobin 10.5 g/dL (13.0-16.5); Immature Granulocytes Count 0.130 X10^3/uL (0.0-0.0); Mean Corp Hgb Conc 30.4 g/dL (32-36); Mean Corpuscular Volume 88.0 fL (80-94); Mean Platelet Vol. 10.0 fl (6.2-12.0); NRBC Flagged by Analyzer 0 % (0-5); Platelet Count 347 K/mm3 (150-450); RBC Distribution Width CV 17.3 % (11.6-14.6); RBC Distribution Width SD 55.6 fl (35.1-43.9); Red Blood Count 3.92 M/mm3 (4.6-6.2); White Blood Count 8.0 K/mm3 (4.4-11.0)
[2025-02-24] MEDS: 0.9% Normal Saline (1000mL) 1,000 ML 150 ML IV ×2 (03:42→10:31)
[2025-02-24 03:55] LABS: Anion Gap 9 (5-15); BUN 11 mg/dL (4-19); BUN/Creat Ratio 15.5 RATIO (10-20); Calcium,Total 8.1 mg/dL (7.6-11.0); Carbon Dioxide 26.3 mmol/L (21.0-32.0); Chloride 102 mmol/L (98-108); Estimated Creatinine Clearance 101.10 ml/min (50-250); Glucose 345 mg/dL (70-99); Potassium 3.8 mmol/L (3.3-5.1)
[2025-02-24] MEDS: Cefepime HCl 2 GM in 0.9% Normal Saline (100mL MB+) 100 ML IV ×3 (05:17→22:37)
--- NOTE | 2025-02-24 05:36 | PCM.PN.INT ---
Assessment & Plan Assessment/Plan (1) AMS (altered mental status): (2) Complicated UTI (urinary tract infection): PLAN: Plan RECOMMENDATIONS: 1. Continue to wean supplemental oxygen as tolerated. 2. Recommend empiric PAP therapy with naps and nightly. 3. Continue antimicrobials, pending finalized culture results. 4. Okay to transition to Eliquis or Xarelto from my perspective. 5. Continue bronchodilator therapy as tolerated. 6. The patient is medically stable for transfer out of the intensive care unit. Will sign off from a critical care perspective. IMPRESSIONS: 1. Acute respiratory failure with hypoxemia hypercapnia Most likely multifactorial in etiology with underlying UTI, questionable obstructive lung disease, newly diagnosed pulmonary emboli and possible ADOLFO/alveolar hypoventilation secondary to obesity, contributing. The patient was ultimately placed on bronchodilator therapy along with her weight-based heparin infusion and noninvasive positive pressure ventilatory support. The patient responded to PAP therapy with improvement in his acid-base status noted. The patient's mental status is at baseline. Recommend continuing to wean supplemental oxygen as tolerated. Empiric PAP therapy should be continued with naps and nightly. The patient would benefit from outpatient pulmonary follow-up for workup of possible COPD and sleep apnea. 2. Hypercapnic encephalopathy Resolved with noninvasive positive pressure ventilatory support. Continue supportive measures as noted above. CT head was unremarkable. 3. Complicated UTI Continue antimicrobial therapy, pending culture results. 4. Newly diagnosed pulmonary emboli Continue weight-based heparin infusion. Will obtain echocardiogram. Okay from my perspective to transition to either Eliquis or Xarelto. 5. History of hypothyroidism/history of sacral decubitus ulcers complicated by osteomyelitis/BPH Complicates care, management, recovery and prognosis. Continue home medications as indicated. This note was generated with [employer] dictation software. It may contain incorrect words, spelling, and punctuation that were not noted in checking the note before signing. Subjective Subjective The patient was seen and examined at the bedside this morning. Events from the last 24 hours have been reviewed. The patient is currently afebrile, hemodynamically stable and maintaining appropriate oxygen saturations on 3 L/min via nasal cannula. No overnight events were noted by the nursing staff. The patient has no specific complaints this morning. White blood cell count is normal. Hemoglobin and platelet count are stable. Creatinine is within normal limits. Objective Data Objective Data The patient's most recent lab work, culture data and imaging studies have all been personally reviewed. Blood culture dated February 22 was positive for Streptococcus. Urine culture dated February 22 is positive for Citrobacter, Klebsiella and possible Enterococcus. Vital Signs: Vital Signs Temp Pulse Resp BP Pulse Ox O2 Del Method O2 Flow Rate 98.5 F 64 23 H 149/82 H 99 Bi-pap 3 02/24/25 02:00 02/24/25 02:07 02/24/25 02:07 02/24/25 02:00 02/24/25 02:07 02/24/25 02:00 02/23/25 20:00 FiO2 30 02/24/25 02:07 Oxygen Flow Rate (L/min) 3 Oxygen Delivery Method Bi-pap Weight: 243 lb 13.3 oz Body Mass Index (BMI) 39.2 Intake & Output: Intake and Output for Last 24 Hours 02/22/25 02/23/25 02/24/25 23:59 23:59 23:59 Intake Total 1100 / 1100 4571.59 / 4571.59 1063.97 / 1063.97 Output Total 375 / 375 1325 / 1325 Balance 725 / 725 3246.59 / 3246.59 1063.97 / 1063.97 Lab / Micro Data Attestation: I reviewed the patient's lab results. 02/24/25 03:25 02/24/25 03:25 Labs: Laboratory Results - last 24 hr 02/23/25 12:00: APTT 56.6 H 02/23/25 17:43: POC Glucose 349 H 02/23/25 18:15: APTT 44.5 H 02/24/25 01:37: APTT 59.5 H 02/24/25 03:25: WBC 8.0, RBC 3.92 L, Hgb 10.5 L, Hct 34.5 L, MCV 88.0, MCH 26.8 L, MCHC 30.4 L, RDW Std Deviation 55.6 H, RDW Coeff of Josue 17.3 H, Plt Count 347, MPV 10.0, Immature Gran % (Auto) 1.600 H, Neut % (Auto) 66.2, Lymph % (Auto) 23.5, [place] % (Auto) 6.9, Eos % (Auto) 1.2, Baso % (Auto) 0.6, Absolute Neuts (auto) 5.3, Absolute Lymphs (auto) 1.88, Nucleated RBC % 0, Sodium 137, Potassium 3.8, Chloride 102, Carbon Dioxide 26.3, Anion Gap 9, BUN 11, Creatinine 0.68 L, Estim Creat Clear Calc 101.10, Est GFR (MDRD) Non-Af 101, BUN/Creatinine Ratio 15.5, Glucose 345 H, Calcium 8.1 Micro: Microbiology 02/22/25 13:24 Urine, Catheterized Urine Culture - Preliminary 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#2 Alpha hemolytic organism 02/22/25 12:07 Blood Culture (Wb) - Anticubital Left Bacteria Detection (PCR) - Final Strep not Strep pneumo 02/22/25 12:07 Blood Culture (Wb) - Anticubital Left Blood Culture - Preliminary 02/22/25 12:45 Mucosa - Nose SARS-CoV-2, Influenza & RSV (PCR) - Final ABG Data ABG results: ABG 02/22/25 02/23/25 12:01 06:40 Specimen Type Cancelled LUZ ELENA Sample Site Cancelled R Radial pH Cancelled 7.42 Bicarbonate Actual Cancelled 32.6 H Total CO2 Cancelled 34 Base Excess Cancelled 8 H O2 Saturation Cancelled 67 L O2 % Cancelled 30.0 ABG pCO2 Cancelled 50.7 H ABG pO2 Cancelled 35 L* Rafal Test Cancelled Positive Respiration Rate Cancelled 16 O2 Delivery Device Cancelled BiPAP Liter Flow Cancelled Minute Volume Cancelled Vent Mode Cancelled Not entered Inspiratory Time Cancelled Expiratory Time Cancelled Tidal Volume Cancelled 500.0 Mean Airway Pressure Cancelled POC PEEP Cancelled 8 Peak Inspir Pressure Cancelled POC Pressure Suppt Cancelled Pressure Control Cancelled Pressure High Cancelled Pressure Low Cancelled Time High Cancelled Time Low Cancelled EPAP Cancelled IPAP Cancelled Blood Gas Comments Cancelled Crit Call To/Read Back Cancelled Yes Blood Gas Notified Whom Cancelled DRBROWN Blood Gas Notified Time Cancelled 06:42:17 Clinical Comments Cancelled Physical Exam Const alert and no apparent distress General Appearance: cooperative and ill appearing Positive for chronically HEENT normocephalic and head/scalp atraumatic Eyes PERRL, EOMs intact bilaterally and conjunctivae normal Neck supple General: trachea midline Chest inspection of chest normal Resp Auscultation: diminished lung sounds; Negative for rales, rhonchi or wheezes Cardio regular rate and regular rhythm GI soft to palpation and non-tender Inspection: ostomy present Extremity General Extremity: Negative for clubbing Neuro CN's II-XII intact bilaterally and no focal motor deficits Psych Mood & Affect: flat affect Charges/Coding Visit Charges Inpatient E&M: 48629 Subs Hosp L2
--- NOTE | 2025-02-24 07:22 | CPS ---
decreased O2 to 2LPM from 3LPM
[2025-02-24 08:39] LABS: Partial Thromboplast Time 72.8 Seconds (24.1-36.2)
--- NOTE | 2025-02-24 11:05 | CASEMGMT ---
JAZZY PAVON Assessment Face to Face with patient for initial transition planning/care coordination assessment. JAZZY PAVON introduced self and role at [facility], pt voices understanding. Pt is A&Ox4 and is resting comfortably in bed and is calm. Care providers, pharmacy, and demographics verified. Admitting dx: RF, UTI LACE Strata: 2 PCP: Brian Zimmerman Specialists: Ric (Urology) Preferred Pharmacy: [facility]: [facility] Prescription Benefit: Yes LNOK: Abraham (W), Harsha (Son) Living Arrangements: Pt lives with his in a single story home with a ramp to enter ADLs/IADLs: Pt requires assistance. Pt uses a billy lift. Pt states that he has help at home but isn't sure if it is a pvt duty IT SECURITY CONSULTING DIRECTOR, skilled HHC RN, Palliative Care CONCRETE SPREADER, or Hospice care. TC to pt's who states that she thinks that the pt is active with Palliative Care or Hospice care. Pt's was able to find a handout that states [facility], [facility]. TC to [facility] who states that the pt is active with their Home [facility]osp[facility]. Pt and pt's state that they wish to continue their services. transformation manager, MD, and SW notified. Pt's states that he has a hx of home oxygen through [employer] but that it was switched to [facility] on 02/16 when the pt went to Hospice care. Andi from [employer] confirmed this. Transportation: DME: See above. Billy, home o2, Power WC, suprapubic Cath, shower chair, sideboard HHC/SNF: Hx with [facility] HH and [facility]. Wound care: pt states that the hospice nurse helps tend to his wound care needs as well as the suprapubic catheter. Pt?s goal: Home with [facility] Care Plan: Home with [facility] services. SW to collaborate with the Hospice care agency. Pt and pt's deny further questions or concerns at this time. Ramsey Iqbal RN, CM
--- NOTE | 2025-02-24 13:47 | CASEMGMT ---
Social Work- Pt has hospice services through [facility]. Pt would like to resume at d/c. Hospitalist updated. SW remains available to follow. MARTI Wallace
[2025-02-24 15:03] LABS: Partial Thromboplast Time 62.8 Seconds (24.1-36.2)
--- NOTE | 2025-02-24 15:17 | CASEMGMT ---
Social Work SW faxed a new hospice referral to [facility]. ANNIE Paris
--- NOTE | 2025-02-24 15:39 | PCM.PN.HOSP ---
Reason for Visit Chief Complaint: altered mental status Subjective Subjective Sitting up in bed, reports breathing beginning to improve, no other acute complaints Objective Data Objective Data Vital Signs: Vital Signs Temp Pulse Resp BP Pulse Ox O2 Del Method O2 Flow Rate 97.9 F 73 21 H 137/58 H 96 Nasal Cannula 3 02/24/25 15:19 02/24/25 15:19 02/24/25 15:19 02/24/25 15:19 02/24/25 15:19 02/24/25 15:19 02/24/25 15:19 FiO2 30 02/24/25 05:15 Oxygen Flow Rate (L/min) 3 Oxygen Delivery Method Nasal Cannula Weight: 110.6 kg Body Mass Index (BMI) 39.2 Intake & Output: Intake and Output for Last 24 Hours 02/22/25 02/23/25 02/24/25 23:59 23:59 23:59 Intake Total 1100 / 1100 4571.59 / 4571.59 2347.54 / 2347.54 Output Total 375 / 375 1325 / 1325 200 / 200 Balance 725 / 725 3246.59 / 3246.59 2147.54 / 2147.54 Lab / Micro Data 02/24/25 03:25 02/24/25 03:25 Labs: Laboratory Results - last 24 hr 02/23/25 17:43: POC Glucose 349 H 02/23/25 18:15: APTT 44.5 H 02/24/25 01:37: APTT 59.5 H 02/24/25 03:25: WBC 8.0, RBC 3.92 L, Hgb 10.5 L, Hct 34.5 L, MCV 88.0, MCH 26.8 L, MCHC 30.4 L, RDW Std Deviation 55.6 H, RDW Coeff of Josue 17.3 H, Plt Count 347, MPV 10.0, Immature Gran % (Auto) 1.600 H, Neut % (Auto) 66.2, Lymph % (Auto) 23.5, [place] % (Auto) 6.9, Eos % (Auto) 1.2, Baso % (Auto) 0.6, Absolute Neuts (auto) 5.3, Absolute Lymphs (auto) 1.88, Nucleated RBC % 0, Sodium 137, Potassium 3.8, Chloride 102, Carbon Dioxide 26.3, Anion Gap 9, BUN 11, Creatinine 0.68 L, Estim Creat Clear Calc 101.10, Est GFR (MDRD) Non-Af 101, BUN/Creatinine Ratio 15.5, Glucose 345 H, Hemoglobin A1c 9.0 H, Calcium 8.1 02/24/25 08:20: APTT 72.8 H 02/24/25 14:42: APTT 62.8 H Micro: Microbiology 02/22/25 12:34 Blood Culture (Wb) - Anticubital Left Blood Culture - Preliminary No growth in 48 hours. 02/22/25 12:07 Blood Culture (Wb) - Anticubital Left Bacteria Detection (PCR) - Final Strep not Strep pneumo 02/22/25 12:07 Blood Culture (Wb) - Anticubital Left Blood Culture - Preliminary Gram Positive Cocci 02/22/25 13:24 Urine, Catheterized Urine Culture - Preliminary Citrobacter freundii Klebsiella pneumoniae sp pneum GPC Poss Enterococcus sp 02/22/25 12:45 Mucosa - Nose SARS-CoV-2, Influenza & RSV (PCR) - Final Physical Exam Narrative General: Alert, answers questions appropriately, no apparent distress HEENT: Atraumatic, normocephalic Eyes: Anicteric Neck: Supple Respiratory: Slightly tachypneic with increased respiratory effort but better than yesterday Cardiovascular: Regular rate and rhythm GI: Soft, nontender, nondistended Extremities: No significant pitting edema Musculoskeletal: Patient chronically wheelchair-bound Neuro: Patient chronically wheelchair-bound Skin: No overt rashes appreciated Psych: Cooperative Assessment & Plan Assessment/Plan (1) Acute respiratory failure with hypoxia and hypercapnia: PLAN: Plan 69-year-old male history of BPH, hypothyroidism, GERD, COPD, wheelchair bound with chronic suprapubic catheter who presented [facility] ED 02/22/2025 after being found unresponsive. EMS notes he was significantly hypoxic as well and per report has been wearing home oxygen over the past few weeks. Was also noted he was found with his suprapubic catheter pulled out. In the ED temp 96.4, heart rate of 80, respiratory rate 16 and blood pressure 109/44, pulse ox 100% however patient on BiPAP. In ED white count 6.9, hemoglobin 11.6, bicarb on BMP 35 with a BUN of 10 and creatinine 0.71, glucose 236. Lactic 1.3. UA suggestive of UTI. Patient did have ABG obtained which showed a pH of 7.32, bicarb 38.4, and pCO2 of 74.6 with PaO2 of [address] no acute process and chest x-ray with increased bibasilar airspace disease. Patient given antibiotics and hospitalist contacted for admission for acute on chronic hypoxic hypercapnic respiratory failure. # Acute hypoxic hypercapnic respiratory failure secondary to multiple pulmonary emboli - Patient was found hypoxic and unresponsive at home and here was necessitating BiPAP to maintain sats, also found to be hypercapnic with pCO2 of 74.6 and a pH of 7.32 - Patient was placed on BiPAP and admitted to ICU with slow improvement in respiratory status and mental status -Given bibasilar airspace disease there was question of pneumonia or pneumonitis, CTA demonstrated multiple pulmonary emboli in the segmental branch pulmonary arteries in the right upper, middle, and lower lobes and questioned bilateral lower lobe atelectasis or pneumonia -Patient covered with antibiotics as below - Pulm/crit following -Continue nebs -Continue heparin -Incentive spirometer - Ultimately will need outpatient pulm follow-up -02/24: Respiratory status significantly improved from presentation, O2 sat 96% on 3 L, work of breathing slowly improving # Acute metabolic encephalopathy -Secondary to hypercapnia and UTI -Mental status improving after BiPAP but family at bedside report he still not back to baseline -BiPAP nightly and with naps -Continue antibiotics -02/24: This is steadily improved with management of underlying etiology # Acute pulmonary emboli -CTA demonstrated multiple pulmonary emboli in the segmental branch of the pulmonary arteries in the right upper, middle, and lower lobes with RV ratio 0.85 -Patient on heparin drip -Echo ordered -02/24: Patient transition to [facility], echo performed and read is pending # Urinary tract infection - UA suggestive of UTI -Preliminary urine culture with 2 gram-negative edward lactose surveyor geophysical prospecting's and alphahemolytic organism -1 blood culture preliminarily growing strep, not strep pneumo, other culture thus far no growth to date -Given the 2 most recent urine cultures being intermediate sensitivity to Zosyn and resistant to Levaquin we will switch to cefepime -02/24:Growing citrobacter, klebsiella, gram-positive cocci's awaiting further culture and sensitivity data. Continue cefepime. 1/2 to blood cultures with gram-positive cocci growth, unclear significance, continued on cefepime #Type 2 diabetes mellitus -Do not see where patient is on anything at home however he had an A1c back in July of 7.1 -Additionally patient hyperglycemic -Glucose checks and sliding scale insulin -Will recheck A1c -02/24: A1c of 9, sliding scale insulin ACHS with high medium dosing # Chronic debility and suprapubic catheter as well as colostomy - Patient wheelchair-bound at baseline - Had pulled out his suprapubic catheter and this was reinserted in the ED - Patient with colostomy -02/24: Ultimate plan is to go home and resume hospice services Chronic medical problems and/or problems not being actively addressed during today's encounter: #Hypothyroidism -Continue Synthroid #Chronic BPH with obstruction -Continue home medications #GERD -Continue PPI #DVT ppx: Mary Anne Shaw MD Charges/Coding Visit Charges Inpatient E&M: 02238 Subs Hosp L2
--- NOTE | 2025-02-24 15:47 | CASEMGMT ---
Social Work SW spoke with the patient and his . OZ informed them a new hospice referral has been submitted to [facility]. The reported she will [facility]. ANNIE Paris
[2025-02-24] MEDS: APIXABAN 5 MG TABLET 10 MG PO (22:36)
[2025-02-25] VITALS (11 sets, daily range): BP systolic 119–151; BP diastolic 56–80; PULSE 64–88; RESP 16–20; TEMP 36.6–36.7; O2SAT 94–98; BMI 39.4
[2025-02-25] MEDS: Cefepime HCl 2 GM in 0.9% Normal Saline (100mL MB+) 100 ML IV ×3 (05:51→21:15)
[2025-02-25] MEDS: 0.9% Saline Lock 10 ML Syringe IV ×2 (05:58→21:20)
[2025-02-25 06:55] LABS: Hematocrit 33.6 % (40-54); Hemoglobin 10.7 g/dL (13.0-16.5); Immature Granulocytes Count 0.120 X10^3/uL (0.0-0.0); Mean Corp Hgb Conc 31.8 g/dL (32-36); Mean Corpuscular Volume 86.2 fL (80-94); Mean Platelet Vol. 9.5 fl (6.2-12.0); NRBC Flagged by Analyzer 0 % (0-5); Platelet Count 348 K/mm3 (150-450); RBC Distribution Width CV 17.1 % (11.6-14.6); RBC Distribution Width SD 53.8 fl (35.1-43.9); Red Blood Count 3.90 M/mm3 (4.6-6.2); White Blood Count 6.8 K/mm3 (4.4-11.0)
[2025-02-25 07:09] LABS: Anion Gap 9 (5-15); BUN 6 mg/dL (4-19); BUN/Creat Ratio 11.3 RATIO (10-20); Calcium,Total 8.6 mg/dL (7.6-11.0); Carbon Dioxide 27.8 mmol/L (21.0-32.0); Chloride 101 mmol/L (98-108); Estimated Creatinine Clearance 103.30 ml/min (50-250); Glucose 216 mg/dL (70-99); Potassium 3.4 mmol/L (3.3-5.1)
[2025-02-25] MEDS: APIXABAN 5 MG TABLET 10 MG PO ×2 (08:04→21:16)
[2025-02-25 13:29] LABS: Allen Test Positive; Base Excess 5 mmol/L (-2 to +2); FI02 3.0; PO2 61 mmHG (75-100); SITE L Radial; SO2 91 % (94-98)
[2025-02-25] MEDS: Vancomycin HCl 2,000 MG in 0.9% Normal Saline (500mL Bag) 500 ML 250 MG IV (15:20)
--- NOTE | 2025-02-25 15:51 | PCM.PN.HOSP ---
Reason for Visit Chief Complaint: altered mental status Subjective Subjective Patient more tired today, will answer questions but appears to not feel well and also thinks he seems somewhat worse today Objective Data Objective Data Vital Signs: Vital Signs Temp Pulse Resp BP Pulse Ox O2 Del Method O2 Flow Rate 98.0 F 74 20 H 131/70 H 95 Nasal Cannula 2 02/25/25 14:40 02/25/25 13:52 02/25/25 13:52 02/25/25 11:45 02/25/25 11:45 02/25/25 14:40 02/25/25 14:40 FiO2 30 02/24/25 22:36 Oxygen Flow Rate (L/min) 2 Oxygen Delivery Method Nasal Cannula Weight: 110.9 kg Body Mass Index (BMI) 39.4 Intake & Output: Intake and Output for Last 24 Hours 02/23/25 02/24/25 02/25/25 23:59 23:59 23:59 Intake Total 4571.59 / 4571.59 3480.00 / 3480.00 600 / 600 Output Total 1325 / 1325 1750 / 1750 3400 / 3400 Balance 3246.59 / 3246.59 1730.00 / 1730.00 -2800 / -2800 Lab / Micro Data 02/25/25 06:08 02/25/25 06:08 Labs: Laboratory Results - last 24 hr 02/24/25 10:31: POC Glucose 210 H 02/24/25 16:10: POC Glucose 172 H 02/24/25 22:40: POC Glucose 242 H 02/25/25 05:56: POC Glucose 215 H 02/25/25 06:08: WBC 6.8, RBC 3.90 L, Hgb 10.7 L, Hct 33.6 L, MCV 86.2, MCH 27.4, MCHC 31.8 L, RDW Std Deviation 53.8 H, RDW Coeff of Josue 17.1 H, Plt Count 348, MPV 9.5, Immature Gran % (Auto) 1.800 H, Neut % (Auto) 64.6, Lymph % (Auto) 20.8, [place] % (Auto) 9.0, Eos % (Auto) 3.1, Baso % (Auto) 0.7, Absolute Neuts (auto) 4.4, Absolute Lymphs (auto) 1.41, Nucleated RBC % 0, Sodium 138, Potassium 3.4, Chloride 101, Carbon Dioxide 27.8, Anion Gap 9, BUN 6, Creatinine 0.50 L, Estim Creat Clear Calc 103.30, Est GFR (MDRD) Non-Af 111, BUN/Creatinine Ratio 11.3, Glucose 216 H, Calcium 8.6 02/25/25 10:58: POC Glucose 165 H 02/25/25 14:41: POC Glucose 170 H Micro: Microbiology 02/22/25 13:24 Urine, Catheterized Urine Culture - Final Citrobacter freundii Klebsiella pneumoniae sp pneum Lactococcus lactis sp lactis 02/22/25 12:07 Blood Culture (Wb) - Anticubital Left Bacteria Detection (PCR) - Final Strep not Strep pneumo 02/22/25 12:07 Blood Culture (Wb) - Anticubital Left Blood Culture - Preliminary Lactococcus lactis sp lactis 02/22/25 12:34 Blood Culture (Wb) - Anticubital Left Blood Culture - Preliminary No growth in 48 hours. 02/22/25 12:45 Mucosa - Nose SARS-CoV-2, Influenza & RSV (PCR) - Final ABG Data ABG results: ABG 02/25/25 13:26 Specimen Type ART Sample Site L Radial pH 7.43 Bicarbonate Actual 29.1 H Total CO2 31 Base Excess 5 H O2 Saturation 91 L O2 % 3.0 ABG pCO2 43.9 ABG pO2 61 L Rafal Test Positive O2 Delivery Device Not entered Vent Mode Not entered Radiography Diagnostic Testing: Radiology Impression Echocardiogram 02/23/25 08:10 Interpretation Summary The left ventricular ejection fraction is 65 %. Normal LV size. No significant valvular disease. Contrast injection was performed. Ordering Physician: Francisco Mckeon Referring Physician: Brian Zimmerman Performed By: Roland Chang RDCS Physical Exam Narrative General: More tired today, answers questions but does not appear to be feeling well HEENT: Atraumatic Eyes: Anicteric Neck: Supple Respiratory: Still somewhat coarse but less tachypneic Cardiovascular: Regular rate and rhythm GI: Soft, nontender, nondistended Extremities: No significant pitting edema Musculoskeletal: Patient chronically wheelchair-bound Neuro: Patient chronically wheelchair-bound Skin: No overt rashes appreciated Psych: Cooperative Assessment & Plan Assessment/Plan (1) Acute respiratory failure with hypoxia and hypercapnia: PLAN: Plan 69-year-old male history of BPH, hypothyroidism, GERD, COPD, wheelchair bound with chronic suprapubic catheter who presented [facility] ED 02/22/2025 after being found unresponsive. EMS notes he was significantly hypoxic as well and per report has been wearing home oxygen over the past few weeks. Was also noted he was found with his suprapubic catheter pulled out. In the ED temp 96.4, heart rate of 80, respiratory rate 16 and blood pressure 109/44, pulse ox 100% however patient on BiPAP. In ED white count 6.9, hemoglobin 11.6, bicarb on BMP 35 with a BUN of 10 and creatinine 0.71, glucose 236. Lactic 1.3. UA suggestive of UTI. Patient did have ABG obtained which showed a pH of 7.32, bicarb 38.4, and pCO2 of 74.6 with PaO2 of [address] no acute process and chest x-ray with increased bibasilar airspace disease. Patient given antibiotics and hospitalist contacted for admission for acute on chronic hypoxic hypercapnic respiratory failure. # Acute metabolic encephalopathy -Secondary to hypercapnia and UTI -Mental status improving after BiPAP but family at bedside report he still not back to baseline -BiPAP nightly and with naps -Continue antibiotics -02/24: This is steadily improved with management of underlying etiology -02/25: Patient had been improving but today appears more tired despite wearing BiPAP last night, ABG obtained which showed normal pCO2. BMP this a.m. similar to previous and patient most recent glucose 170. Blood culture has resulted with lactococcus lactis and 1 out of 2 and suspect that this may be true infection as patient has greater than 100,000 colonies growing in his urine as well, routine susceptibility studies not provided given the organisms fastidious nature. Patient kept on cefepime for the Klebsiella and Citrobacter and vancomycin added for additional coverage given unclear susceptibility with patient having worsening mental status after initial improvement. Will repeat blood cultures and urine cultures. Also order sputum cultures patient does seem to have quite a bit of phlegm. Depending on patient progress and cultures may need to consider ID consult for Thursday # Urinary tract infection 2/2 klebsiella, citrobacter, and lactococcus lactis - UA suggestive of UTI -Preliminary urine culture with 2 gram-negative edward lactose emergency medical service manager's and alphahemolytic organism -1 blood culture preliminarily growing strep, not strep pneumo, other culture thus far no growth to date -Given the 2 most recent urine cultures being intermediate sensitivity to Zosyn and resistant to Levaquin we will switch to cefepime -02/24:Growing citrobacter, klebsiella, gram-positive cocci's awaiting further culture and sensitivity data. Continue cefepime. 1/2 to blood cultures with gram-positive cocci growth, unclear significance, continued on cefepime -02/25: klebsiella, citrobacter, and lactococcus lactis. Klebsiella is an 80,000 100,000 colonies, Citrobacter is 25,000-50,000 colonies so may be contaminant but unclear, lactococcus is >100,000 and 1 out of 2 blood cultures is actually growing less so suspect that this is true pathologic infection. Patient on Vanco and cefepime, repeating cultures, likely need ID consult on Thursday pending patient progress # Lactococcus lactis bacteremia -02/25: 1 out of 2 cultures positive however patient with greater than 100,000 colonies and urine suggesting this may be a true pathologic infection not contaminant despite 3 organisms growing on culture. Repeating cultures. # Acute hypoxic hypercapnic respiratory failure secondary to multiple pulmonary emboli - Patient was found hypoxic and unresponsive at home and here was necessitating BiPAP to maintain sats, also found to be hypercapnic with pCO2 of 74.6 and a pH of 7.32 - Patient was placed on BiPAP and admitted to ICU with slow improvement in respiratory status and mental status -Given bibasilar airspace disease there was question of pneumonia or pneumonitis, CTA demonstrated multiple pulmonary emboli in the segmental branch pulmonary arteries in the right upper, middle, and lower lobes and questioned bilateral lower lobe atelectasis or pneumonia -Patient covered with antibiotics as below - Pulm/crit following -Continue nebs -Continue heparin -Incentive spirometer - Ultimately will need outpatient pulm follow-up -02/24: Respiratory status significantly improved from presentation, O2 sat 96% on 3 L, work of breathing slowly improving -02/25: Patient on 2 L nasal cannula and maintaining sats, repeated ABG due to mental status and CO2 is within normal limits, continue Eliquis # Acute pulmonary emboli -CTA demonstrated multiple pulmonary emboli in the segmental branch of the pulmonary arteries in the right upper, middle, and lower lobes with RV ratio 0.85 -Patient on heparin drip -Echo ordered -02/24: Patient transition to [facility], echo performed and read is pending -02/25: Echo with EF of 65, normal LV, no acute abnormalities reported, continue Eliquis #Type 2 diabetes mellitus -Do not see where patient is on anything at home however he had an A1c back in July of 7.1 -Additionally patient hyperglycemic -Glucose checks and sliding scale insulin -Will recheck A1c -02/24: A1c of 9, sliding scale insulin ACHS with high medium dosing -02/25: Discussed diabetes diagnosis with and that ultimately he will need treated for this # Chronic debility and suprapubic catheter as well as colostomy - Patient wheelchair-bound at baseline - Had pulled out his suprapubic catheter and this was reinserted in the ED - Patient with colostomy -02/24: Ultimate plan is to go home and resume hospice services -02/25: Patient not yet ready for DC, confirmed that he will go home with hospice but that they want everything done and for him to be treated for his infection to continue his other home medications. Chronic medical problems and/or problems not being actively addressed during today's encounter: #Hypothyroidism -Continue Synthroid #Chronic BPH with obstruction -Continue home medications #GERD -Continue PPI #DVT ppx: Mary Anne Shaw MD Charges/Coding Visit Charges Inpatient E&M: 17247 Subs Hosp L2
--- NOTE | 2025-02-25 16:09 | PCM.RX.CS ---
Consult Antibiotic Management Pharmacy has been consulted to manage selected antibiotic: Vancomycin Type of Intervention Type of Consult: New start Suspected Infection Suspected Infection: Sepsis Labs Labs: Sodium 138 mmol/L (133-145) 02/25/25 06:08 Potassium 3.4 mmol/L (3.3-5.1) 02/25/25 06:08 Chloride 101 mmol/L (98-108) 02/25/25 06:08 Carbon Dioxide 27.8 mmol/L (21.0-32.0) 02/25/25 06:08 Anion Gap 9 (5-15) 02/25/25 06:08 BUN 6 mg/dL (4-19) 02/25/25 06:08 Creatinine 0.50 mg/dL (0.70-1.20) L 02/25/25 06:08 Est GFR (MDRD) Non-Af 111 (>60) 02/25/25 06:08 BUN/Creatinine Ratio 11.3 RATIO (10-20) 02/25/25 06:08 Glucose 216 mg/dL (70-99) H 02/25/25 06:08 Microbiology Microbiology: Microbiology 02/22/25 13:24 Urine, Catheterized Urine Culture - Final Citrobacter freundii Klebsiella pneumoniae sp pneum Lactococcus lactis sp lactis 02/22/25 12:07 Blood Culture (Wb) - Anticubital Left Bacteria Detection (PCR) - Final Strep not Strep pneumo 02/22/25 12:07 Blood Culture (Wb) - Anticubital Left Blood Culture - Preliminary Lactococcus lactis sp lactis 02/22/25 12:34 Blood Culture (Wb) - Anticubital Left Blood Culture - Preliminary No growth in 48 hours. 02/22/25 12:45 Mucosa - Nose SARS-CoV-2, Influenza & RSV (PCR) - Final Goal Trough Goal Trough: 15-20 mcg/mL Pharmacy Plan for Drug Dosing Pharmacy Plan for Drug Dosing: NEW START IV VANCOMYCIN Consulting Physician: Dr. Shaw Indication: Sepsis Goal Trough: 15-20 SrCr: 0.5 CrCl: 103ml/min Comments: pt received a 2000mg loading dose 02/25/25 at 1520. (note: pt is wheel chair bound and could be lacking muscle mass leading to increased CrCl) Vancomycin Dose: based on patients weight and renal function, recommend an initial dose of 1250mg q12h starting 02/26/25 at 0400 Pending Level: 02/27/25 at 0330 Pharmacy Service will continue to monitor and adjust dosing as required. Follow-Up Labs Follow-Up Labs: Trough: Vancomycin (02/27/25 AT 0330)
[2025-02-25 17:56] LABS: Mucous, Urine 0 SEEN /hpf (<or=2+)
[2025-02-25 17:58] LABS: Color, Urine Yellow (Yellow); Glucose, Dipstick Normal (Normal); Ketone-Dipstick Negative (Negative); Leukocyte Esterase-Dipstick 25 /ul (Negative); Nitrite-Dipstick Negative (Negative); Occult Blood-Urine Negative /ul (Negative); Protein-Dipstick Negative (Negative); Specific Gravity, Urine 1.010 (1.002-1.030); Urine Bilirubin Dipstick Negative (Negative)
[2025-02-25 18:13] LABS: Red Blood Cells-Urine 0-5 SEEN /hpf (0-5); Squamous Epithelial Cells - UA 0-5 SEEN /hpf (0-5)
[2025-02-25 18:14] LABS: Yeast-Urine RARE /hpf (None Seen)
[2025-02-26] VITALS (10 sets, daily range): BP systolic 115–148; BP diastolic 61–76; PULSE 65–81; RESP 16–20; TEMP 36.7–37.2; O2SAT 94–96; BMI 39.9
[2025-02-26] MEDS: Vancomycin HCl 1,250 MG in 0.9% Normal Saline (250mL Bag) 250 ML 167 MG IV ×2 (04:55→15:28)
[2025-02-26 06:25] LABS: Hematocrit 33.7 % (40-54); Hemoglobin 10.8 g/dL (13.0-16.5); Immature Granulocytes Count 0.130 X10^3/uL (0.0-0.0); Mean Corp Hgb Conc 32.0 g/dL (32-36); Mean Corpuscular Volume 85.5 fL (80-94); Mean Platelet Vol. 9.2 fl (6.2-12.0); NRBC Flagged by Analyzer 0 % (0-5); Platelet Count 334 K/mm3 (150-450); RBC Distribution Width CV 16.8 % (11.6-14.6); RBC Distribution Width SD 52.9 fl (35.1-43.9); Red Blood Count 3.94 M/mm3 (4.6-6.2); White Blood Count 6.5 K/mm3 (4.4-11.0)
[2025-02-26] MEDS: Cefepime HCl 2 GM in 0.9% Normal Saline (100mL MB+) 100 ML IV ×3 (06:46→22:34)
[2025-02-26 06:50] LABS: Anion Gap 8 (5-15); BUN 9 mg/dL (4-19); BUN/Creat Ratio 19.2 RATIO (10-20); Calcium,Total 8.6 mg/dL (7.6-11.0); Carbon Dioxide 28.5 mmol/L (21.0-32.0); Chloride 105 mmol/L (98-108); Estimated Creatinine Clearance 103.95 ml/min (50-250); Glucose 169 mg/dL (70-99); Potassium 3.8 mmol/L (3.3-5.1)
[2025-02-26] MEDS: APIXABAN 5 MG TABLET 10 MG PO ×2 (08:14→22:34)
--- NOTE | 2025-02-26 10:31 | PCM.PN.HOSP ---
Reason for Visit Chief Complaint: altered mental status Subjective Subjective Feeling a little bit better today, breathing roughly the same, still coughing Objective Data Objective Data Vital Signs: Vital Signs Temp Pulse Resp BP Pulse Ox O2 Del Method O2 Flow Rate 98.9 F 66 18 142/72 H 96 Nasal Cannula 2 02/26/25 05:01 02/26/25 07:18 02/26/25 07:18 02/26/25 05:01 02/26/25 07:18 02/26/25 08:15 02/26/25 08:15 FiO2 30 02/25/25 23:59 Oxygen Flow Rate (L/min) 2 Oxygen Delivery Method Nasal Cannula Weight: 112.2 kg Body Mass Index (BMI) 39.9 Intake & Output: Intake and Output for Last 24 Hours 02/24/25 02/25/25 02/26/25 23:59 23:59 23:59 Intake Total 3480.00 / 3480.00 1540 / 1540 375 / 375 Output Total 1750 / 1750 4150 / 4150 1450 / 1450 Balance 1730.00 / 1730.00 -2610 / -2610 -1075 / -1075 Lab / Micro Data 02/26/25 06:13 02/26/25 06:13 Labs: Laboratory Results - last 24 hr 02/25/25 10:58: POC Glucose 165 H 02/25/25 14:41: POC Glucose 170 H 02/25/25 16:19: POC Glucose 191 H 02/25/25 17:46: Urine Color Yellow, Urine Clarity Clear, Urine pH 7.0, Ur Specific [place] 1.010, Urine Protein Negative, Urine Glucose (UA) Normal, Urine Ketones Negative, Urine Occult Blood Negative, Urine Nitrite Negative, Urine Bilirubin Negative, Urine Urobilinogen Normal, Ur Leukocyte Esterase 25 H, Urine RBC 0-5 SEEN, Urine WBC 5-10 SEEN, Ur Squamous Epith Cells 0-5 SEEN, Urine Bacteria 0 SEEN, Urine Mucus 0 SEEN, Urine Yeast RARE 02/25/25 21:19: POC Glucose 196 H 02/26/25 06:13: WBC 6.5, RBC 3.94 L, Hgb 10.8 L, Hct 33.7 L, MCV 85.5, MCH 27.4, MCHC 32.0, RDW Std Deviation 52.9 H, RDW Coeff of Josue 16.8 H, Plt Count 334, MPV 9.2, Immature Gran % (Auto) 2.000 H, Neut % (Auto) 62.1, Lymph % (Auto) 22.6, [place] % (Auto) 8.3, Eos % (Auto) 4.5, Baso % (Auto) 0.5, Absolute Neuts (auto) 4.1, Absolute Lymphs (auto) 1.47, Nucleated RBC % 0, Sodium 142, Potassium 3.8, Chloride 105, Carbon Dioxide 28.5, Anion Gap 8, BUN 9, Creatinine 0.48 L, Estim Creat Clear Calc 103.95, Est GFR (MDRD) Non-Af 113, BUN/Creatinine Ratio 19.2, Glucose 169 H, Calcium 8.6 02/26/25 06:43: POC Glucose 149 H Micro: Microbiology 02/22/25 13:24 Urine, Catheterized Urine Culture - Final Citrobacter freundii Klebsiella pneumoniae sp pneum Lactococcus lactis sp lactis 02/22/25 12:07 Blood Culture (Wb) - Anticubital Left Bacteria Detection (PCR) - Final Strep not Strep pneumo 02/22/25 12:07 Blood Culture (Wb) - Anticubital Left Blood Culture - Preliminary Lactococcus lactis sp lactis 02/22/25 12:34 Blood Culture (Wb) - Anticubital Left Blood Culture - Preliminary No growth in 48 hours. 02/22/25 12:45 Mucosa - Nose SARS-CoV-2, Influenza & RSV (PCR) - Final ABG Data ABG results: ABG 02/25/25 13:26 Specimen Type ART Sample Site L Radial pH 7.43 Bicarbonate Actual 29.1 H Total CO2 31 Base Excess 5 H O2 Saturation 91 L O2 % 3.0 ABG pCO2 43.9 ABG pO2 61 L Rafal Test Positive O2 Delivery Device Not entered Vent Mode Not entered Physical Exam Narrative General: More alert today, answers questions appropriately, no apparent distress HEENT: Atraumatic, normocephalic Eyes: Anicteric Neck: Supple Respiratory: Slightly tachypneic and a little bit coarse at the bases but some of it seems to be transmitted upper airway sounds Cardiovascular: Regular rate and rhythm GI: Soft, nontender, nondistended Extremities: No significant pitting edema Musculoskeletal: Patient chronically wheelchair-bound Neuro: Patient chronically wheelchair-bound Skin: No overt rashes appreciated Psych: Cooperative Assessment & Plan Assessment/Plan (1) Acute respiratory failure with hypoxia and hypercapnia: PLAN: Plan 69-year-old male history of BPH, hypothyroidism, GERD, COPD, wheelchair bound with chronic suprapubic catheter who presented [facility] ED 02/22/2025 after being found unresponsive. EMS notes he was significantly hypoxic as well and per report has been wearing home oxygen over the past few weeks. Was also noted he was found with his suprapubic catheter pulled out. In the ED temp 96.4, heart rate of 80, respiratory rate 16 and blood pressure 109/44, pulse ox 100% however patient on BiPAP. In ED white count 6.9, hemoglobin 11.6, bicarb on BMP 35 with a BUN of 10 and creatinine 0.71, glucose 236. Lactic 1.3. UA suggestive of UTI. Patient did have ABG obtained which showed a pH of 7.32, bicarb 38.4, and pCO2 of 74.6 with PaO2 of [address] no acute process and chest x-ray with increased bibasilar airspace disease. Patient given antibiotics and hospitalist contacted for admission for acute on chronic hypoxic hypercapnic respiratory failure. # Acute metabolic encephalopathy -Secondary to hypercapnia and UTI -Mental status improving after BiPAP but family at bedside report he still not back to baseline -BiPAP nightly and with naps -Continue antibiotics -02/24: This is steadily improved with management of underlying etiology -02/25: Patient had been improving but today appears more tired despite wearing BiPAP last night, ABG obtained which showed normal pCO2. BMP this a.m. similar to previous and patient most recent glucose 170. Blood culture has resulted with lactococcus lactis and 1 out of 2 and suspect that this may be true infection as patient has greater than 100,000 colonies growing in his urine as well, routine susceptibility studies not provided given the organisms fastidious nature. Patient kept on cefepime for the Klebsiella and Citrobacter and vancomycin added for additional coverage given unclear susceptibility with patient having worsening mental status after initial improvement. Will repeat blood cultures and urine cultures. Also order sputum cultures patient does seem to have quite a bit of phlegm. Depending on patient progress and cultures may need to consider ID consult for Thursday -02/26: Seems to be better today after broadening antibiotics, ID consult placed, concerned that this is secondary to patient's underlying infection. Repeat blood culture pending # Urinary tract infection 2/2 klebsiella, citrobacter, and lactococcus lactis - UA suggestive of UTI -Preliminary urine culture with 2 gram-negative edward lactose chief juvenile probation officer's and alphahemolytic organism -1 blood culture preliminarily growing strep, not strep pneumo, other culture thus far no growth to date -Given the 2 most recent urine cultures being intermediate sensitivity to Zosyn and resistant to Levaquin we will switch to cefepime -02/24:Growing citrobacter, klebsiella, gram-positive cocci's awaiting further culture and sensitivity data. Continue cefepime. 1/2 to blood cultures with gram-positive cocci growth, unclear significance, continued on cefepime -02/25: klebsiella, citrobacter, and lactococcus lactis. Klebsiella is an 80,000 100,000 colonies, Citrobacter is 25,000-50,000 colonies so may be contaminant but unclear, lactococcus is >100,000 and 1 out of 2 blood cultures is actually growing less so suspect that this is true pathologic infection. Patient on Vanco and cefepime, repeating cultures, likely need ID consult on Thursday pending patient progress -02/26: Continue current antibiotics, ID consult # Lactococcus lactis bacteremia -02/25: 1 out of 2 cultures positive however patient with greater than 100,000 colonies and urine suggesting this may be a true pathologic infection not contaminant despite 3 organisms growing on culture. Repeating cultures. -02/26: Repeat cultures pending # Acute hypoxic hypercapnic respiratory failure secondary to multiple pulmonary emboli - Patient was found hypoxic and unresponsive at home and here was necessitating BiPAP to maintain sats, also found to be hypercapnic with pCO2 of 74.6 and a pH of 7.32 - Patient was placed on BiPAP and admitted to ICU with slow improvement in respiratory status and mental status -Given bibasilar airspace disease there was question of pneumonia or pneumonitis, CTA demonstrated multiple pulmonary emboli in the segmental branch pulmonary arteries in the right upper, middle, and lower lobes and questioned bilateral lower lobe atelectasis or pneumonia -Patient covered with antibiotics as below - Pulm/crit following -Continue nebs -Continue heparin -Incentive spirometer - Ultimately will need outpatient pulm follow-up -02/24: Respiratory status significantly improved from presentation, O2 sat 96% on 3 L, work of breathing slowly improving -02/25: Patient on 2 L nasal cannula and maintaining sats, repeated ABG due to mental status and CO2 is within normal limits, continue Eliquis -02/26: Used BiPAP again last night. Was able to produce sputum sample, will monitor culture # Acute pulmonary emboli -CTA demonstrated multiple pulmonary emboli in the segmental branch of the pulmonary arteries in the right upper, middle, and lower lobes with RV ratio 0.85 -Patient on heparin drip -Echo ordered -02/24: Patient transition to Eliquis, echo performed and read is pending -02/25: Echo with EF of 65, normal LV, no acute abnormalities reported, continue Eliquis -02/26: Continue Eliquis. Hemoglobin stable #Type 2 diabetes mellitus -Do not see where patient is on anything at home however he had an A1c back in July of 7.1 -Additionally patient hyperglycemic -Glucose checks and sliding scale insulin -Will recheck A1c -02/24: A1c of 9, sliding scale insulin ACHS with high medium dosing -02/25: Discussed diabetes diagnosis with and that ultimately he will need treated for this -02/26: Glucose 149 this a.m., continue present management # Chronic debility and suprapubic catheter as well as colostomy - Patient wheelchair-bound at baseline - Had pulled out his suprapubic catheter and this was reinserted in the ED - Patient with colostomy -02/24: Ultimate plan is to go home and resume hospice services -02/25: Patient not yet ready for DC, confirmed that he will go home with hospice but that they want everything done and for him to be treated for his infection to continue his other home medications. -02/26: Will DC home with hospice once medically able to do so, hopefully early this week Chronic medical problems and/or problems not being actively addressed during today's encounter: #Hypothyroidism -Continue Synthroid #Chronic BPH with obstruction -Continue home medications #GERD -Continue PPI #DVT ppx: Mary Anne Shaw MD Charges/Coding Visit Charges Inpatient E&M: 42558 Subs Hosp L2
[2025-02-26] MEDS: 0.9% Saline Lock 10 ML Syringe IV ×3 (11:37→22:36)
[2025-02-27] VITALS (8 sets, daily range): BP systolic 108–145; BP diastolic 57–76; PULSE 69–84; RESP 16–24; TEMP 36.5–36.8; O2SAT 96–98; BMI 39.4
[2025-02-27 03:55] LABS: Hematocrit 33.8 % (40-54); Hemoglobin 10.8 g/dL (13.0-16.5); Immature Granulocytes Count 0.120 X10^3/uL (0.0-0.0); Mean Corp Hgb Conc 32.0 g/dL (32-36); Mean Corpuscular Volume 85.6 fL (80-94); Mean Platelet Vol. 9.0 fl (6.2-12.0); NRBC Flagged by Analyzer 0 % (0-5); Platelet Count 355 K/mm3 (150-450); RBC Distribution Width CV 17.1 % (11.6-14.6); RBC Distribution Width SD 53.0 fl (35.1-43.9); Red Blood Count 3.95 M/mm3 (4.6-6.2); White Blood Count 7.7 K/mm3 (4.4-11.0)
[2025-02-27 04:16] LABS: Vancomycin, Trough Level 11.7 ug/mL (5.0-15.0)
[2025-02-27 04:32] LABS: Anion Gap 9 (5-15); BUN 9 mg/dL (4-19); BUN/Creat Ratio 20.4 RATIO (10-20); Calcium,Total 8.8 mg/dL (7.6-11.0); Carbon Dioxide 28.1 mmol/L (21.0-32.0); Chloride 104 mmol/L (98-108); Estimated Creatinine Clearance 103.30 ml/min (50-250); Glucose 175 mg/dL (70-99); Potassium 3.7 mmol/L (3.3-5.1)
[2025-02-27] MEDS: Vancomycin HCl 1,500 MG in 0.9% Normal Saline (500mL Bag) 500 ML 250 MG IV (06:02)
[2025-02-27] MEDS: 0.9% Saline Lock 10 ML Syringe IV (06:05)
[2025-02-27] MEDS: APIXABAN 5 MG TABLET 10 MG PO ×2 (08:18→22:36)
[2025-02-27] MEDS: Cefepime HCl 2 GM in 0.9% Normal Saline (100mL MB+) 100 ML IV (08:22)
[2025-02-27] MEDS: Ceftriaxone 2 GM in 0.9% Normal Saline (50mL MB+) 50 ML IV (09:30)
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
--- NOTE | 2025-02-27 15:37 | WOUNDNOTE ---
wound photo: right ischium
--- NOTE | 2025-02-27 21:12 | PCM.PN.HOSP ---
Reason for Visit Chief Complaint: altered mental status Subjective Subjective Mental status is back to baseline. Patient has been weaned to 4 L nasal cannula. Baseline oxygen is 3 [id number] supplied by hospice. Plan is for discharge back to hospice. I did discuss the transition antibiotics with the patient and he voiced understanding. Objective Data Objective Data Vital Signs: Vital Signs Temp Pulse Resp BP Pulse Ox O2 Del Method O2 Flow Rate 97.9 F 75 22 H 108/57 L 98 Nasal Cannula 4 02/27/25 15:20 02/27/25 20:50 02/27/25 20:50 02/27/25 15:20 02/27/25 15:20 02/27/25 20:17 02/27/25 15:20 FiO2 30 02/26/25 23:30 Oxygen Flow Rate (L/min) 4 Oxygen Delivery Method Nasal Cannula Weight: 110.9 kg Body Mass Index (BMI) 39.4 Intake & Output: Intake and Output for Last 24 Hours 02/25/25 02/26/25 02/27/25 23:59 23:59 23:59 Intake Total 1540 / 1540 1570 / 1570 800 / 800 Output Total 4150 / 4150 2550 / 2550 3550 / 3550 Balance -2610 / -2610 -980 / -980 -2750 / -2750 Lab / Micro Data 02/27/25 03:36 02/27/25 03:36 Labs: Laboratory Results - last 24 hr 02/26/25 22:32: POC Glucose 196 H 02/27/25 03:36: WBC 7.7, RBC 3.95 L, Hgb 10.8 L, Hct 33.8 L, MCV 85.6, MCH 27.3, MCHC 32.0, RDW Std Deviation 53.0 H, RDW Coeff of Josue 17.1 H, Plt Count 355, MPV 9.0, Immature Gran % (Auto) 1.600 H, Neut % (Auto) 67.0, Lymph % (Auto) 17.8 L, [place] % (Auto) 7.6, Eos % (Auto) 5.6 H, Baso % (Auto) 0.4, Absolute Neuts (auto) 5.2, Absolute Lymphs (auto) 1.37, Nucleated RBC % 0, Sodium 140, Potassium 3.7, Chloride 104, Carbon Dioxide 28.1, Anion Gap 9, BUN 9, Creatinine 0.46 L, Estim Creat Clear Calc 103.30, Est GFR (MDRD) Non-Af 114, BUN/Creatinine Ratio 20.4 H, Glucose 175 H, Calcium 8.8, Vancomycin Trough 11.7 02/27/25 06:07: POC Glucose 152 H 02/27/25 11:15: POC Glucose 187 H 02/27/25 17:20: POC Glucose 169 H Micro: Microbiology 02/22/25 12:07 Blood Culture (Wb) - Anticubital Left Bacteria Detection (PCR) - Final Strep not Strep pneumo 02/22/25 12:07 Blood Culture (Wb) - Anticubital Left Blood Culture - Preliminary Lactococcus lactis sp lactis 02/22/25 12:34 Blood Culture (Wb) - Anticubital Left Blood Culture - Final No growth in 5 days. 02/25/25 21:42 Sputum, Expectorated/Coughed Gram Stain - Final 02/25/25 21:42 Sputum, Expectorated/Coughed Respiratory Culture - Preliminary Appears to be normal respiratory cristel. Further studies to follow. 02/22/25 13:24 Urine, Catheterized Urine Culture - Final Citrobacter freundii Klebsiella pneumoniae sp pneum Lactococcus lactis sp lactis 02/22/25 12:45 Mucosa - Nose SARS-CoV-2, Influenza & RSV (PCR) - Final Physical Exam Const alert, oriented x3 and no apparent distress; Negative for average body habitus or healthy appearing Constitutional Narrative: Obese, chronically ill-appearing, upper middle-aged, white male who appears older than stated age, lying in bed, currently appears comfortable, watching television, breathing appears comfortable, nontoxic HEENT head/scalp atraumatic, moist oral mucous membranes and oropharynx normal HEENT Narrative: Mallampati 3-4, no thrush Resp normal respiratory effort, no retractions, no use of accessory muscles and clear to auscultation bilaterally Resp Narrative: Diffusely diminished Auscultation: Negative for crackles, rhonchi or wheezes Cardio regular rate, regular rhythm, S1 normal heart sound, S2 normal heart sound, no murmurs, no rub, no gallops and no clicks GI normal to inspection, nondistended, normoactive bowel sounds, soft to palpation and non-tender GI Narrative: Large protuberant abdomen, diverting ostomy in place with good stool output Extremity Extremity Narrative: Bilateral chronic lower extremity edema related to decreased mobility, no clubbing or cyanosis, pedal and radial pulses are 2+ Skin Skin Narrative: Large right sacral unstageable decubitus wound-chronic with no current drainage or signs of acute infection Neuro Neuro Narrative: Inability to move lower extremities, moves upper extremities symmetrically Speech: speech normal Psych affect normal Psych Narrative: Eye contact is good and patient interacts appropriately Assessment & Plan Assessment/Plan (1) Acute on chronic respiratory failure with hypoxia and hypercapnia: (2) Complicated UTI (urinary tract infection): (3) Decubitus ulcer of right buttock, stage 3: (4) Right ischial pressure sore: PLAN: Plan Acute on chronic hypoxic and hypercapnic respiratory failure secondary to multiple pulmonary emboli - Patient with chronic hypercapnia related to ADOLFO and chronic hypoxia on 3 L [id number] at baseline - Oxygen was required to be uptitrated on admission and currently requiring 4 L - Will wean as able - Continue anticoagulation - Continue pulmonary toilet and incentive spirometry/Acapella - outpatient pulmonary follow-up after discharge - continue nocturnal BiPAP Acute pulmonary emboli - CTA on presentation showed multiple pulmonary emboli - Continue apixaban 10 mg p.o. twice daily with transition to 5 mg after 7-day loading dose - Echocardiogram showed normal RV - Therapy should be lifelong given chronic mobility issues Acute toxic/metabolic encephalopathy - Resolved Complicated acute urinary tract infection secondary to Klebsiella/Citrobacter/lactococcus - Planning for last dose of antibiotics on 02/28/2025 - 1 of 2 blood cultures positive for lactic coccus per ID last antibiotic treatment dose will be tomorrow DM-2 - A1c was 9.0 - Continue sliding scale for now - A.m. fasting blood sugars have been overall well-controlled - May be able to to utilize orals at discharge - Continue to monitor blood sugars Chronic sacral pressure ulcers stage IV - Present on admission - Wound care is following - Ongoing outpatient follow-up at the wound center with Dr. 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
[2025-02-28 02:19] VITALS: BP 116/52; PULSE 75; RESP 18; TEMP 36.7; O2SAT 98
[2025-02-28 04:48] LABS: Hematocrit 36.0 % (40-54); Hemoglobin 10.9 g/dL (13.0-16.5); Immature Granulocytes Count 0.110 X10^3/uL (0.0-0.0); Mean Corp Hgb Conc 30.3 g/dL (32-36); Mean Corpuscular Volume 88.5 fL (80-94); Mean Platelet Vol. 10.3 fl (6.2-12.0); NRBC Flagged by Analyzer 0 % (0-5); Platelet Count 329 K/mm3 (150-450); RBC Distribution Width CV 17.2 % (11.6-14.6); RBC Distribution Width SD 54.8 fl (35.1-43.9); Red Blood Count 4.07 M/mm3 (4.6-6.2); White Blood Count 9.0 K/mm3 (4.4-11.0)
[2025-02-28 05:11] LABS: Anion Gap 11 (5-15); BUN 8 mg/dL (4-19); BUN/Creat Ratio 26.9 RATIO (10-20); Calcium,Total 8.7 mg/dL (7.6-11.0); Carbon Dioxide 27.1 mmol/L (21.0-32.0); Chloride 102 mmol/L (98-108); Estimated Creatinine Clearance 103.30 ml/min (50-250); Glucose 164 mg/dL (70-99); Potassium 3.8 mmol/L (3.3-5.1)
[2025-02-28 05:27] VITALS: BMI 38.7
[2025-02-28 06:48] VITALS: PULSE 79; RESP 18; O2SAT 94
[2025-02-28 09:12] VITALS: BP 135/70; PULSE 85; RESP 18; TEMP 36.8; O2SAT 94
[2025-02-28] MEDS: APIXABAN 5 MG TABLET 10 MG PO (09:19)
[2025-02-28] MEDS: Ceftriaxone 2 GM in 0.9% Normal Saline (50mL MB+) 50 ML IV (09:27)
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
[2025-02-28 15:15] VITALS: BP 109/56; PULSE 78; RESP 17; TEMP 36.5; O2SAT 96
--- NOTE | 2025-02-28 15:17 | PHA.DC_ITS ---
Pharmacy [place] Med Reconciliation Pharmacy Service has performed discharge medication reconciliation for this patient. The patient's discharge medication list was reviewed for discrepancies and discrepancies were resolved. Medications at Discharge Home Medications levothyroxine 125 mcg tablet 125 mcg PO DAILY THYROID 12/17/17 tamsulosin 0.4 mg capsule 0.4 mg PO BID PROSTATE 12/17/17 icosapent ethyl 1 gram capsule (Vascepa) 2 g PO BIDCM cholesterol 02/08/22 omeprazole 40 mg capsule,delayed release 40 mg PO DAILY reflux 08/02/24 baclofen 20 mg tablet 20 mg PO BID PRN pain 08/07/24 mecobalamin (vitamin B12) 500 mcg chewable tablet 500 mcg PO DAILY supplement 01/17/25 acetaminophen 325 mg tablet 1,300 mg (4 x 325 mg) PO Q8H PRN PRN Pain 1-10 Or Fever>100.7 #0 tabs 01/20/25 loratadine 10 mg tablet (Allerclear) 10 mg PO DAILY allergies 02/22/25 OXYGEN - Supplemental ([facility] INFORMATIONAL USE ONLY) 02/23/25 apixaban 5 mg tablet (Eliquis) 10 mg PO BID #68 tabs 02/28/25
--- NOTE | 2025-02-28 16:21 | CASEMGMT ---
Social Work Per physician, pt is ready for discharge today. Phone call placed to pt's . with concerns that pt did not recognize her last night and that this is not normal for pt. OZ spoke with nurse who states pt is alert and oriented today. SW updated pt's to this and encouraged pt's to come in and check on pt and speak with nurse. If has continued concerns she can speak with nurse and ask to speak with physician if needed. is agreeable. is able to transport pt home and bring in portable oxygen. SW updated that SW will notify [facility] of dc home today. Phone call to [facility] and notified of dc home today. DC summary faxed. MARTI Marie
[2025-02-28 17:56] VITALS: BP 131/56; PULSE 79; RESP 17; TEMP 36.9; O2SAT 92
== END 2025-02-28 18:53 | disposition hospice, home (50) | DRG 175 ==
LOC: ED 14:14 → ICU 14:57 → PCU 02-24 14:12
PROVIDERS: Internal Medicine; Internal Medicine Critical Care Medicine; Admitting Provider Student in an Organized Health Care Education/Training Program; Emergency Provider Emergency Medicine; PCP Family Medicine; Visit Provider Internal Medicine
DX: I26.99 Other pulmonary embolism without acute cor pulmonale (principal); J96.21 Acute and chronic respiratory failure with hypoxia; J96.22 Acute and chronic respiratory failure with hypercapnia; G93.41 Metabolic encephalopathy; L89.154 Pressure ulcer of sacral region, stage 4; E66.2 Morbid (severe) obesity with alveolar hypoventilation; T83.510A Infection and inflammatory reaction due to cystostomy catheter, initial encounter; Z68.41 Body mass index [BMI] 40.0-44.9, adult; N13.8 Other obstructive and reflux uropathy; N39.0 Urinary tract infection, site not specified; E11.9 Type 2 diabetes mellitus without complications; J44.9 Chronic obstructive pulmonary disease, unspecified; E03.9 Hypothyroidism, unspecified; Z93.3 Colostomy status; K21.9 Gastro-esophageal reflux disease without esophagitis; E78.5 Hyperlipidemia, unspecified; G47.33 Obstructive sleep apnea (adult) (pediatric); B96.1 Klebsiella pneumoniae [K. pneumoniae] as the cause of diseases classified elsewhere; N40.1 Benign prostatic hyperplasia with lower urinary tract symptoms; Z87.891 Personal history of nicotine dependence; Z79.899 Other long term (current) drug therapy; Z99.81 Dependence on supplemental oxygen; Z99.3 Dependence on wheelchair; X58.XXXA Exposure to other specified factors, initial encounter
CPT/HCPCS: 36415; 36600; 70450; 71045; 71275; 80048; 80053; 80202; 81001; 82803; 82962; 83036; 83605; 84484; 85025; 85610; 85730; 87040; 87070; 87077; 87086; 87088; 87149; 87186; 87205; 87631; 93005; 93306; 94002; 94003; 94640; 94668; 94762; 97162; 97163; 97166; 99285; Q9957; Q9967; A4216; C8929; J0696; J1938

== ENCOUNTER → 2025-03-14 | Outpatient (CLI) | payer MEDICARE, SELFPAY ==
--- NOTE | 2025-03-14 11:25 | RAD_ITS ---
PROCEDURE: CHEST PA AND LATERAL 03/14/2025 REASON FOR EXAM: RHONCHI TECHNIQUE: Procedure Code: RADCXR Modality: DX Procedure: CHEST PA AND LATERAL COMPARISON: CT angio chest 02/23/2020 FINDINGS: Hardware: None Heart: Heart size is mildly enlarged. Mediastinum: The mediastinal contour is stable. Lungs: Persistent bibasilar atelectasis/consolidation. No pleural effusion or pneumothorax. Bones: The bones are unremarkable. RAD/Chest PA and Lateral IMPRESSION: Persistent bibasilar atelectasis/consolidation. Reading [facility]
== END | disposition home or self-care (01) ==
LOC: MTRAD 11:23
PROVIDERS: PCP Family Medicine; Referring Provider Family Medicine; Visit Provider Family Medicine
DX: R09.89 Other specified symptoms and signs involving the circulatory and respiratory systems (principal)
CPT/HCPCS: 71046

== ENCOUNTER 2025-03-16 19:42 | Inpatient (IN) | payer MEDICARE, SELFPAY ==
[2025-03-16] VITALS (17 sets, daily range): BP systolic 104–142; BP diastolic 72–111; PULSE 74–97; RESP 14–24; TEMP 36.6–36.9; O2SAT 54–100; BMI 38.1
--- NOTE | 2025-03-16 19:52 | EKG12_ITS ---
Test Reason : DYSRHYTHMIA Blood Pressure : */* mmHG Vent. Rate : 87 BPM Atrial Rate : 87 BPM P-R Int : 170 ms QRS Dur : 72 ms QT Int : 316 ms P-R-T Axes : 57 46 58 degrees QTcB Int : 380 ms Normal sinus rhythm Low voltage QRS Borderline ECG Confirmed by Moustapha Ortega ([id number]), publications editor MAMIE JUAREZ ([id number]) on 03/17/2025 9:57:24 AM Referred By: Confirmed By: Moustapha Ortega
--- NOTE | 2025-03-16 20:00 | RAD_ITS ---
PROCEDURE: CHEST 1 VIEW (PORTABLE) 03/16/2025 REASON FOR EXAM: RESPIRATORY FAILURE AND DISTRESS TECHNIQUE: Frontal view of the chest. COMPARISON: 03/14/2025 FINDINGS: Prominent cardiomegaly, with central vascular congestion. Bibasilar consolidation and/or atelectasis, with small pleural effusions not excluded. No pneumothorax. Degenerative changes of the spine. RAD/Chest 1 View (Portable) IMPRESSION: Cardiomegaly with vascular congestion. Bibasilar consolidation and/or atelectasis, possibly with small pleural effusio ns. Reading Location: [id number]
[2025-03-16 20:03] LABS: Allen Test Positive; Base Excess 8 mmol/L (-2 to +2); FI02 100.0; PEEP 10; PO2 88 mmHG (75-100); RR 14; SITE L Radial; SO2 94 % (94-98)
[2025-03-16] MEDS: Propofol 10MG/Ml 1,000 MG/100 ML Bottle 6.4 MG CONT INF (20:16)
--- OUTSIDE RECORDS SUMMARY | 2025-03-16 20:27 | XMS RPT_ITS | CCD ---
Author Organization [facility] CliniSyct Care Team Providers Care It Systems Analyst Name Role Phone PRAVIN PEDRAZA Attending Unavailable [facility] Referring Unavailable ANTHONY CARDONA Primary Care Unavailable PRAVIN PEDRAZA Attending Unavailable Dr. Brian Cardona Primary Care Provider Biedenharn PA, PA Cristy Attending Provider [phone] Biedenharn PA, PA Cristy Referring Provider [phone] Biedenhanand PA, PA Cristy Other Provider Dr. Popeye Messina Attending Provider Dr. Popeye Messina Referring Provider Dr. Popeye Messina Other Provider Dr. Popeye Messina Admit Provider Dr. Kari Romero Attending Provider Dr. Kari Romero Other Provider Ramiro RESEARCH & ANALYTICS MANAGER, 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 Kemi Adam Attending Provider Dr. Deshawn Mason Attending Provider Ramiro RESEARCH & ANALYTICS MANAGER, 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 Kemi Adam Other Provider Dr. Brian Cardona Referring Provider Dr. Brian Cardona Primary Care Provider Biedenharn PA, PA Cristy Attending Provider Biedenharn PA, PA Cristy Referring Provider Biedenhsonnyn PA, PA Cristy Other Provider Dr. Popeye Messina Attending Provider Dr. Popeye Messina Referring Provider [phone] Dr. Popeye Messina Other Provider Dr. Deshawn Mason Attending Provider Dr. Popeye Messina Admit Provider Dr. Kari Romero Attending Provider Dr. Kari Romero Other Provider Ramiro RESEARCH & ANALYTICS MANAGER, 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 Kemi E Attending Provider Ramiro RESEARCH & ANALYTICS MANAGER, 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 Kemi E Other Provider Dr. Brian Cardona Referring Provider Care Physician, No Primary Primary Care Provider Unavailable Care Physician, No Primary Referring Provider Un available Dr. Brian Cardona Primary Care Provider Biedenharn PA, PA Cristy Attending Provider Biedenharn PA, PA Cristy Referring Provider Biedenharn PA, PA Cristy Other Provider Dr. Brian Cardona Primary Care Provider Dr. Popeye Messina Admit Provider [phone] Popeye Messina Attending Provider [phone] Dr. Popeye Messina Referring Provider [phone] Dr. Popeye Messina Other Provider [phone] Kari Romero Other Provider Biedenharn, PA Cristy Referring Provider Ramiro RESEARCH & ANALYTICS MANAGER, 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 Kemi E Attending Provider Dr. Kari Romero Attending Provider Ramiro RESEARCH & ANALYTICS MANAGER, 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 Kemi E Referring Provider Dr. Brian Cardona Primary Care Provider Biedenharn, PA Cristy Referring Provider Ramiro RESEARCH & ANALYTICS MANAGER, 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 Kemi E Attending Provider Ramiro RESEARCH & ANALYTICS MANAGER, 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 Kemi E Other Provider Dr. Kari Romero Attending Provider Dr. Kari Romero Other Provider CARLOS Verma Referring Provider Ramiro RESEARCH & ANALYTICS MANAGER, 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 Kemi E Attending Provider [phone] Ramiro RESEARCH & ANALYTICS MANAGER, 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 Kemi E Other Provider Care Physician, No Primary Primary Care Provider Unavailable Care Physician, No Primary Referring Provider Un available Dr. Kari Romero Attending Provider Ramiro RESEARCH & ANALYTICS MANAGER, 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 Kemi E Attending Provider Ramiro RESEARCH & ANALYTICS MANAGER, 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 Kemi E Other Provider Care Physician, No Primary Primary Care Provider Unavailable Dr. Brian Cardona Primary Care Provider Dr. Chas Paiz Attending Provider Dr. Kari Romero Referring Provider Dr. Kari Romero Other Provider Dr. Kari Romero Admit Provider Dr. Nakita Arroyo Attending Provider Ramiro RESEARCH & ANALYTICS MANAGER, 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 Kemi E Attending Provider [phone] Ramiro RESEARCH & ANALYTICS MANAGER, 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 Kemi E Referring Provider Ramiro RESEARCH & ANALYTICS MANAGER, 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 Kemi E Other Provider Care Physician, No Primary Primary Care Provider Unavailable Ramiro RESEARCH & ANALYTICS MANAGER, 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 Kemi E Attending Provider Ramiro RESEARCH & ANALYTICS MANAGER, 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 Kemi E Referring Provider Ramiro RESEARCH & ANALYTICS MANAGER, 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 Kemi E Other Provider [phone] Care Physician, No Primary Primary Care Provider Unavailable Dr. Brian Cardona Referring Provider Ramiro RESEARCH & ANALYTICS MANAGER, 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 Kemi E Attending Provider [phone] Ramiro RESEARCH & ANALYTICS MANAGER, 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 Kemi E Referring Provider [phone] Ramiro RESEARCH & ANALYTICS MANAGER, 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 Kemi E Other Provider Care Physician, No Primary Primary Care Provider Unavailable Dr. Kari Romero Attending Provider Ramiro RESEARCH & ANALYTICS MANAGER, 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 Kemi E Attending Provider [phone] Ramiro RESEARCH & ANALYTICS MANAGER, 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 Kemi E Referring Provider [phone] Ramiro RESEARCH & ANALYTICS MANAGER, 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 Kemi E Other Provider Care Physician, No Primary Primary Care Provider Unavailable Dr. Kari Romero Attending Provider Dr. Kari Romero Referring Provider Dr. Kari Romero Other Provider Dr. Brian Cardona Primary Care Provider Dr. Kari Romero Admit Provider Dr. Nakita Arroyo Attending Provider Dr. Brian Cardona Referring Provider CARLOS Bearden Referring Provider Brian Cardona MD Primary Care Provider Ramiro RESEARCH & ANALYTICS MANAGER, 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 Kemi E Attending Provider [phone] Ramiro RESEARCH & ANALYTICS MANAGER, 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 Kemi E Referring Provider Ramiro RESEARCH & ANALYTICS MANAGER, 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 Kemi E Other Provider Dr. Brian Cardona Primary Care Provider Dr. Kari Romero Attending Provider Dr. Popeye Messina Attending Provider Dr. Popeye Messina Referring Provider Ramiro RESEARCH & ANALYTICS MANAGER, 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 Kemi E Attending Provider [phone] Ramiro RESEARCH & ANALYTICS MANAGER, 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 Kemi E Referring Provider [phone] Ramiro RESEARCH & ANALYTICS MANAGER, 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 Ekmi E Other Provider Dr. Brian Cardona Primary Care Provider Ramiro RESEARCH & ANALYTICS MANAGER, 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 Kemi E Attending Provider Ramiro RESEARCH & ANALYTICS MANAGER, 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 Kemi E Referring Provider [phone] Ramiro RESEARCH & ANALYTICS MANAGER, 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 Kemi E Other Provider Dr. Brian Cardona Primary Care Provider Ramiro RESEARCH & ANALYTICS MANAGER, 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 Kemi E Other Provider Dr. Brian Cardona Primary Care Provider Dr. Popeye Messina Attending Provider Dr. Popeye Messina Referring Provider Ramiro RESEARCH & ANALYTICS MANAGER, 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 Kemi E Attending Provider [phone] Ramiro RESEARCH & ANALYTICS MANAGER, 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 Kemi E Referring Provider Ramiro RESEARCH & ANALYTICS MANAGER, 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 Kemi E Attending Provider Ramiro RESEARCH & ANALYTICS MANAGER, 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 Kemi E Referring Provider Ramiro RESEARCH & ANALYTICS MANAGER, 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 Kemi E Other Provider Dr. Brian Cardona Primary Care Provider Dr. Brian Cardona Referring Provider CARLOS Fuchs Attending Provider CARLOS Bearden Referring Provider Kristine GOOD, Zackery Gomes Unavailable [phone] Yessenia GOOD, Rikki Huffman Unavailable Cristy Stoll Referring Provider Dr. Brian Cardona MD Primary Care Provider Un available Dr. Luca Nayak MD Attending Provider Dr. Luca Nayak MD Other Provider Ramiro 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, Kemi E Attending Provider Ramiro 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, Kemi E Referring Provider Ramiro 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, Kemi E Other Provider Dr. Luca Nayak MD Referring Provider Dr. Brian Cardona MD Referring Provider Unava pooja Quevedo MD, Dr. Wyatt Attending Provider Fiordaliza GOOD, Dr. Johnson Attending Provider Dr. Hebert Saavedra MD Emergency Provider Colin GOOD, Dr. Andrews Admit Provider Colin GOOD, Dr. Andrews Attending Provider Colin GOOD, Dr. Andrews Other Provider Cristy Stoll Referring Provider Dr. Brian Cardona MD Primary Care Provider Un available Ramiro 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, Kemi E Attending Provider Dr. Luca Nayak MD Attending Provider Dr. Luca Nayak MD Other Provider Colin GOOD, Dr. Andrews Referring Provider Dr. Brian Cardona MD Attending Provider Unava pooja GONZALEZ, Cristy Referring Provider Dr. Brian Cardona MD Primary Care Provider Un available Ramiro 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, Kemi E Attending Provider Ramiro 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, Kemi E Other Provider Dr. Luca Nayak MD Attending Provider Dr. Luca Nayak MD Referring Provider Dr. Brian Cardona MD Referring Provider Unava Dr. Andre Cuadra DO Emergency Provider Yudith GOOD, Dr. Isha Gomes Admit Provider Dr. Isha Zurita MD Referring Provider Dr. Isha Zurita MD Other Provider Dr. Basilio Dill DO Attending Provider Dr. Miller Blank MD Other Provider Unavailable Ric GOOD, Dr. Felix Mistry Other Provider Dr. Miller Blank MD Attending Provider Unavaila ble Yudith GOOD, Dr. Isha Gomes Attending Provider Erasmo GOOD, Dr. Torres Primary Care Provider Un available Ramiro 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, Kemi Adam Other Provider Nael GOOD, Dr. Segovia Attending Provider Nael GOOD, Dr. Segovia Referring Provider Suleiman GONZALEZ, Cristy Referring Provider Ramiro 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, Kemi Adam Attending Provider Quentin GOOD, Dr. Ambrosio Attending Provider Steven GOOD, Dr. Pantoja Emergency Provider Erasmo GOOD, Dr. Torres Primary Care Provider Un available Nael GOOD, Dr. Segovia Attending Provider Nael GOOD, Dr. Segovia Referring Provider Nael GOOD, Dr. Segovia Other Provider Erasmo GOOD, Dr. Torres Referring Provider Pam Quevedo MD, Dr. Wyatt Attending Provider Fiordaliza GOOD, Dr. Johnson Attending Provider Quentin GOOD, Dr. Ambrosio Emergency Provider Colin GOOD, Dr. Andrews Admit Provider Colin GOOD, Dr. Andrews Attending Provider Colin GOOD, Dr. Andrews Other Provider Colin GOOD, Dr. Andrews Referring Provider Cristy Stoll Referring Provider Dr. Brian Cardona MD Attending Provider Jazmynva Dr. Andre Cuadra DO Emergency Provider Yudith GOOD, Dr. Isha Gomes Admit Provider Dr. Isha Zurita MD Referring Provider Yudith GOOD, Dr. Isha Gomes Other Provider Dr. Basilio Dill DO Attending Provider Rosamaria GOOD, Dr. Bhatt Other Provider Unavailable Ric MD, Dr. Felix Mistry Other Provider Rosamaria GOOD, Dr. Bhatt Attending Provider Unavaila stalin Zurita MD, Dr. Isha Gomes Attending Provider Quentin GOOD, Dr. Ambrosio Attending Provider Steven GOOD, Dr. Pantoja Attending Provider Steven GOOD, Dr. Pantoja Emergency Provider Erasmo GOOD, Dr. Torres Primary Care Provider Un available Fiordaliza GOOD, Dr. Johnson Attending Provider Nael GOOD, Dr. Segovia Attending Provider Nael GOOD, Dr. Segovia Other Provider Erasmo GOOD, Dr. Torres Referring Provider Pam Nayak MD, Dr. Segovia Referring Provider Sae GOOD, Dr. Wyatt Attending Provider YESSENIA GOOD, RIKKI Attending Provider RIKKI CASAS MD Referring Provider Erasmo GOOD, Dr. Torres Primary Care Provider Un available Fiordaliza GOOD, Dr. Johnson Attending Provider Colin GOOD, Dr. Andrews Referring Provider Colin GOOD, Dr. Andrews Attending Provider Cristy Stoll Referring Provider Nael GOOD, Dr. Segovia Attending Provider Nael GOOD, Dr. Segovia Other Provider Erasmo GOOD, Dr. Torres Referring Provider Pam Nayak MD, Dr. Segovia Referring Provider Quentin GOOD, Dr. Ambrosio Emergency Provider Steven GOOD, Dr. Pantoja Attending Provider Sae GOOD, Dr. Wyatt Attending Provider RIKKI CASAS MD Attending Provider RIKKI CASAS MD Referring Provider Sae GOOD, Dr. Wyatt Referring Provider Erasmo GOOD, Dr. Torres Primary Care Provider Un available Bearden PA, Cristy Referring Provider Nael GOOD, Dr. Segovia Attending Provider Nael GOOD, Dr. Segovia Other Provider Zenobia Bolton Attending Provider Erasmo GOOD, Dr. Torres Primary Care Provider Un available Erasmo GOOD, Dr. Torres Referring Provider Pam Cardona MD, Dr. Torres Primary Care Provider Un available Rosamaria GOOD, Dr. Bhatt Attending Provider Unavaila ble Suleiman PA, Cristy Referring Provider Nael GOOD, Dr. Segovia Attending Provider Nael GOOD, Dr. Segovia Other Provider Nael GOOD, Dr. Segovia Referring Provider Erasmo GOOD, Dr. Torres Primary Care Physician U keisha Quevedo MD, Dr. Wyatt Attending Physician RIKKI CASAS MD Attending Physician Nael GOOD, Dr. Segovia Attending Physician Nael GOOD, Dr. Segovia Nurse Practitioner Suleiman GONZALEZ, Cristy Referring Provider [phone] Zenobia Bolton Attending Physician Erasmo GOOD, Dr. Torres Primary Care Physician U keisha Quevedo MD, Dr. Wyatt Attending Physician Sae GOOD, Dr. Wyatt Referring Provider Erasmo GOOD, Dr. Torres Referring Provider Zenobia Looney Attending Physician Suleiman PA, Cristy Referring Provider [phone] Nael GOOD, Dr. Segovia Attending Physician Nael GOOD, Dr. Segovia Referring Provider Nael GOOD, Dr. Segovia Nurse Practitioner Brian Rodgers Attending Physician Unavail skye Saavedra MD, Dr. Ambrosio Emergency Department Physician Fuentes ORTEGA, Dr. Richmond Admitting Physician Fuentes ORTEGA, Dr. Richmond Attending Physician Geronimo 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, Susan Nurse Practitione r Dr. Basilio Dill DO Nurse Practitioner Geronimo 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, Susan Attending Physici an Edmundo Quevedo Referring Unavailable Quevedo, Edmundo Attending Unavailable Gunning, Brian Primary Care Unavailable Gunning, Brian Primary Care Unavailable Juliana Shaw Attending Unavailable Juliana Shaw Admitting Unavailable Gunning, Brian Primary Care Unavailable White, Isha L Consulting Unavailable White, Isha L Referring Unavailable White, Isha L Admitting Unavailable Basilio Dill Attending Unavailable Miller Blank Consulting Unavailable RicFelix Consulting Unavailable Ramiro RESEARCH & ANALYTICS MANAGER, Kemi Adam Attending Unavailabl e Bearden, Cristy Referring Unavailable Gunning, Brian Primary Care Unavailable Siska, Luca Attending Unavailable Bearden, Cristy Referring Unavailable Gunning, Brian Primary Care Unavailable Gunning, Brian Primary Care Unavailable Jopperi, Basilio Consulting Unavailable Joppcolleen, Basilio Attending Unavailable Jopperi, Basilio Admitting Unavailable Siska, Luca Attending Unavailable Siska, Luca Consulting Unavailable Siska, Luca Referring Unavailable Gunning, Brian Primary Care Unavailable Siska, Luca Consulting Unavailable Ramiro RESEARCH & ANALYTICS MANAGER, Kemi E Attending Unavailabl e Ramiro RESEARCH & ANALYTICS MANAGER, Kemi E Referring Unavailabl e Gunning, Brian Primary Care Unavailable Siska, Luca Attending Unavailable Bearden, Cristy Referring Unavailable Gunning, Brian Primary Care Unavailable Gunning, Brian Primary Care Unavailable Gunning, Brian Attending Unavailable Gunning, Brian Referring Unavailable Siska, Luca Attending Unavailable Gunning, Brian Primary Care Unavailable Bearden, Cristy Referring Unavailable Ramiro RESEARCH & ANALYTICS MANAGER, Kemi E Attending Unavailabl e Bearden, Cristy Referring Unavailable Gunning, Brian Primary Care Unavailable Gunning, Brian Primary Care Unavailable Adri Saavedrao Attending Unavailable Gunning, Brian Primary Care Unavailable Kit Harris Attending Unavailable Siska, Luca Attending Unavailable Bearden, Cristy Referring Unavailable Gunning, Brian Primary Care Unavailable RIKKI CASAS Referring Unavailable Gunning, Brian Primary Care Unavailable RIKKI CASAS Attending Unavailable Gunning Brian LORENZANA Attending Unavailable Gunning, Brian Primary Care Unavailable Siska, Luca Attending Unavailable Ramiro RESEARCH & ANALYTICS MANAGER, Kemi E Consulting Unavailabl e Siska, Luca Referring Unavailable Gunning, Brian Primary Care Unavailable Ramiro RESEARCH & ANALYTICS MANAGER, Kemi Adam Attending Unavailabl e Gunning, Brian Referring Unavailable Gunning, Brian Primary Care Unavailable Pincumbe-Gillaspie, Susan Consulting UnavaBasilio Mcmillan Admitting Unavailable Gunning, Brian Primary Care Unavailable Basilio Dill Attending Unavailable Siska, Luca Attending Unavailable Siska, Luca Consulting Unavailable Gunning, Brian Primary Care Unavailable Bearden, Cristy Referring Unavailable Siska, Luca Attending Unavailable Bearden, Cristy Referring Unavailable Siska, Luca Consulting Unavailable Gunning, Brian Primary Care Unavailable Siska, Luca Attending Unavailable Siska, Luca Referring Unavailable Siska, Luca Consulting Unavailable Gunning, Brian Primary Care Unavailable Gunning, Brian Primary Care Unavailable Juliana Shaw Consulting Unavailable Juliana Shaw Attending Unavailable Juliana Shaw Admitting Unavailable Gunning, Brian Primary Care Unavailable White, Isha L Consulting Unavailable White, Isha L Attending Unavailable White, Isha L Referring Unavailable White, Isha L Admitting Unavailable KitMiller perez Attending Unavailable KitwueMiller Consulting Unavailable Gunning, Brian Primary Care Unavailable Edmundo Quevedo Attending Unavailable Gunfelix, Brian Referring Unavailable Juliana Shaw Referring Unavailable Alex Mancera Attending Unavailable Gunning, Brian Primary Care Unavailable Siska, Luca Attending Unavailable Ramiro RESEARCH & ANALYTICS MANAGER, Kemi E Consulting Unavailabl e Siska, Luca Referring Unavailable Gunning, Brian Primary Care Unavailable Siska, Luca Attending Unavailable Siska, Luca Consulting Unavailable Bearden, Cristy Referring Unavailable Gunning, Brian Primary Care Unavailable Siska, Luca Attending Unavailable Siska, Luca Referring Unavailable Ramiro RESEARCH & ANALYTICS MANAGER, Kemi E Consulting Unavailabl e Gunning, Brian Primary Care Unavailable Siska, Luca Consulting Unavailable Siska, Luca Attending Unavailable Siska, Luca Referring Unavailable Gunning, Brian Primary Care Unavailable Siska, Luca Referring Unavailable Siska, Luca Attending Unavailable Siska, Luca Consulting Unavailable Gunning, Brian Primary Care Unavailable Gunning, Brian Referring Unavailable Zenobia Michele Attending Unavailable Gunning, Brian Primary Care Unavailable Edmundo Quevedo Attending Unavailable Gunning, Brian Referring Unavailable Gunning, Brian Primary Care Unavailable Gunning, Brian Primary Care Unavailable Alex Mancera Attending Unavailable Edmundo Quevedo Attending Unavailable Gunning, Brian Primary Care Unavailable Gunning, Brian Referring Unavailable Siska, Luca Attending Unavailable Bearden, Cristy Referring Unavailable Gunning, Brian Primary Care Unavailable Siska, Luca Attending Unavailable Gunning, Brian Primary Care Unavailable Bearden, Cristy Referring Unavailable Siska, Luca Attending Unavailable Bearden, Cirsty Referring Unavailable Gunning, Brian Primary Care Unavailable Gunning, Brian Referring Unavailable Ramiro RESEARCH & ANALYTICS MANAGER, Kemi Adam Attending Unavailabl e Gunning, Brian Primary Care Unavailable Siska, Luca Attending Unavailable Bearden, Cristy Referring Unavailable Gunning, Brian Primary Care Unavailable Ramiro RESEARCH & ANALYTICS MANAGER, Kemi Adam Attending Unavailabl e Bearden, Cristy Referring Unavailable Gunning, Brian Primary Care Unavailable Gunning, Brian Primary Care Unavailable Juliana Shaw Attending Unavailable Juliana Shaw Referring Unavailable Susan Melton Consulting JazmynvaSusan Martinez Attending Jazmynvahomer lable Allergies Allergy Classification Reported Allergen(s) Allergy Type Date of Onset Reaction(s) Facility (2 sources) Dust; Translations: [DUST] Propensity to adverse reactions (disorder) 9 [facility] (2 sources) Mold spore; Translations: [MOLD SPORES] Propensity to adverse reactions (disorder) 9 [facility] Repository (20 sources) Pollen Allergy to substance 2 NEEDS FOLLOW-UP [facility] (20 sources) Environmental Allergies: Uncoded; Translations: [Environmental Allergies: Uncoded] Allergy to substance 2 NEEDS FOLLOW-UP [facility] (20 sources) house dust allergenic extract Drug Allergy 2 Other [facility] (13 sources) House dust mite Allergy to substance 9 [facility] (13 sources) Pollen Allergy to substance 2 [facility] (1 source) house dust allergenic extract Drug Allergy 5 [facility] (1 source) Pollen Drug allergy (disorder) 5 [facility] Repository Medications Current Medications Medication Drug Class(es) Dates Sig (Normalized) Sig (Original) acetaminophen 325 mg oral tablet (20 sources) Start: 01-20-2025 take 1-10 tablets by mouth every eight hours as needed for pain Start: 12-11-2023 End: 12-11-2023 1,000 mg, Oral, Once, On Thu12/11/23 at 1215, For 1 dose, Preprocedure, Administer 60 minutes prior to surgery. Start: 04-25-2022 End: 01-17-2025 take 2 tablets by mouth every eight hours as needed for pain Acetaminophen 650 mg Tablet Extended Release Discontinued 1300 mg PO Q8H as needed for Pain April 25, 2022 12:00am January 17, 2025 11:39am Start: 04-25-2022 take 1300 mg by mout h every eight hours Acetaminophen Active 1300 MG PO Q8H April 25, 2022 1:00am Start: 02-08-2022 take 650 mg by mouth every eight hours Acetaminophen Active 650 MG PO Q8H February 08, 2022 12:00am baclofen 20 mg oral tablet (20 sources) gamma-Aminobutyric Acid-ergic Agonist Start: 08-07-2024 take 1 tablet by mouth twice daily as needed Start: 08-07-2024 take 1 tablet by marielle th three times daily as needed Start: 12-17-2017 End: 08-07-2024 take 2 tablets by mouth three times daily Baclofen 10 MG tablet Discontinued 20 mg PO THREE TIMES A DAY December 16, 2017 11:00pm August 07, 2024 5:00pm spasm Start: 12-17-2017 End: 08-07-2024 baclofen (Lioresal) 10 MG ta blet Take 15 tablets by mouth 3 times daily. 09/13/2023 Active Start: 12-17-2017 Baclofen 10 MG tablet Active [...] 12:00am Start: 05-05-2022 take 1 capsule by [facility] twice daily Gabapentin (Neurontin) 300 mg capsule Active 300 MG PO TWICE A DAY May 05, 2022 12:00am icosapent ethyl 1000 mg oral capsule (20 sources) Start: 02-08-2022 Lactobac. Rhamnosus Gg-Inulin ([facility] [employer] [facility]) 12 billion cell -200 mg capsule (1 source) Start: 03-11-2022 take 1 capsule by mouth once daily Lactobac. Rhamnosus Gg-Inulin ([facility] [employer] [facility]) 12 billion cell -200 mg capsule Active 1 CAP PO DAILY March 11, 2022 12:00am levoFLOXacin 500 mg oral tablet (20 sources) Quinolone Antimicrobial Start: 01-20-2025 take 1 tablet by mouth once daily Start: 08-01-2024 End: 01-17-2025 take 1 tablet by mouth once daily Levofloxacin 750 mg tablet Discontinued 750 mg PO DAILY July 31, 2024 11:00pm January 17, 2025 11:40am Start: 09-21-2023 End: 01-25-2024 take 1 tablet by mouth once daily Levofloxacin 500 mg tablet Discontinued 500 mg PO DAILY September 20, 2023 11:00pm January 25, 2024 4:24pm levothyroxine sodium 0.125 mg oral tablet (20 sources) l-Thyroxine Start: 12-17-2017 End: 12-12-2023 take 1 tablet by mouth once daily meclizine hydrochloride 25 mg oral tablet (12 sources) Antiemetic Start: 08-07-2024 take 1 tablet by mouth three times daily as needed for dizziness nitrofurantoin, macrocrystals 50 mg oral capsule (11 sources) Nitrofuran Antibacterial Start: 08-29-2024 Start: 08-29-2024 omeprazole 40 mg delayed release oral capsule (13 sources) Proton Pump Inhibitor Start: 08-02-2024 take 1 capsule by mouth once daily sulfamethoxazole 800 mg / trimethoprim 160 mg oral tablet (1 source) Dihydrofolate Reductase Inhibitor Antibacterial, Sulfonamide Antimicrobial Start: 02-08-2022 take 1 tablet by mouth twice daily Sulfamethoxazo le-Trimethopri m Active 1 TABLET PO TWICE A DAY February 08, 2022 12:00am tamsulosin hydrochloride 0.4 mg oral capsule (20 sources) alpha-Adrenergic Daniel Start: 12-17-2017 take 1 capsule by mouth twice daily take 1 capsule by [facility] every twenty-four hours in the morning tamsulosin (Flomax) 0.4 MG 24 hr capsule Take 0.4 mg by mouth in the morning and 0.4 mg in the evening. Active vitamin b12 0.5 mg chewable tablet (1 source) Vitamin B12 Start: 01-17-2025 Completed/Discontinued Medications Medication Drug Class(es) Dates Sig (Normalized) Sig (Original) acetaminophen 325 mg / oxyCODONE hydrochloride 5 mg oral tablet (20 sources) Opioid Agonist Start: 08-27-2023 End: 06-03-2024 Oxycodone-Acetaminoph en (Percocet) 5-325 mg tablet Discontinued 1 {tbl} PO TWICE A DAY as needed for pain (scale score 7-10) 10 5 0 August 27, 2023 June 03, 2024 2:32pm Other acute postprocedural pain Other acute postprocedural pain 10 tabs (ten) Start: 08-27-2023 End: 06-03-2024 Start: 04-30-2022 End: 09-05-2022 Oxycodone-Acetaminophen (Per cocet) 5-325 mg tablet Discontinued 1 {tbl} PO 4 TIMES DAILY as needed for pain (scale score 7-10) 28 7 0 April 30, 2022 September 05, 2022 7:51am Other acute postprocedural pain Other acute postprocedural pain Start: 04-30-2022 End: 09-05-2022 amoxicillin 875 mg / clavulanate 125 mg oral tablet (20 sources) Penicillin-class Antibacterial Start: 06-12-2024 End: 07-29-2024 Amoxicillin-Pot Clavulanate 875-125 mg tablet Discontinued 1 {tbl} PO TWICE A DAY 14 7 0 June 11, 2024 11:00pm July 29, 2024 9:08pm Start: 06-12-2024 End: 07-29-2024 Start: 08-27-2023 End: 01-25-2024 Amoxicillin-Pot Clavulanate (Augmentin) 500-125 mg tablet Discontinued 1 {tbl} PO THREE TIMES A DAY 30 10 2 August 26, 2023 11:00pm January 25, 2024 4:23pm Start: 08-27-2023 End: 01-25-2024 Start: 04-13-2023 End: 08-14-2023 take 1 tablet by mouth every twelve hours Amoxicillin-Pot Clavulanate 875-125 mg tablet Discontinued 0 .ROUTE .COMPLEX 42 0 May 15, 2023 1:36pm August 14, 2023 9:03am TAKE 1 TAB ORALLY EVERY 12 HOURS FOR 21 DAYS Start: 11-14-2022 End: 12-19-2022 Amoxicillin-Pot Clavulanate 875-125 mg tablet Discontinued 1 {tbl} PO TWICE A DAY 28 14 November 13, 2022 11:00pm December 19, 2022 2:04pm wound Start: 11-14-2022 End: 12-19-2022 Start: 11-14-2022 End: 12-19-2022 take 1 tablet by mouth twice daily Amoxicillin-Pot Clavulanate Discontinued 1 TABLET PO TWICE A DAY 28 14 November 14, 2022 12:00am December 19, 2022 3:04pm Start: 07-22-2022 End: 09-05-2022 Amoxicillin-Pot Clavulanate 875-125 mg tablet Discontinued 1 {tbl} PO Q12H 28 14 0 August 05, 2022 11:00pm September 05, 2022 7:50am Start: 05-01-2022 End: 09-05-2022 Amoxicillin-Pot Clavulanate (Augmentin) 500-125 mg tablet Discontinued 1 {tbl} PO THREE TIMES A DAY 63 May 01, 2022 12:00am September 05, 2022 7:50am Start: 05-01-2022 End: 09-05-2022 Start: 03-06-2022 End: 03-28-2022 take 1 tablet by mouth every six hours at mealtime Amoxicillin-Pot Clavulanate 875-125 mg tablet Discontinued 1 {tbl} PO TWICE A DAY 28 0 March 06, 2022 12:00am March 28, 2022 9:50am Take 1 tablet twice daily (every 12 hours) with food. Start: 03-06-2022 End: 03-28-2022 Start: 03-06-2022 End: [...] MG PO Q12H February 08, 2022 12:00am Uugpf-Hjgq-Yckpf-Collag-Mv-M in (Edgar (With Collagen)) 7-7-1.5 gram Powder In Packet (20 sources) Start: 04-30-2022 End: 08-14-2023 Fumvo-Aduo-Zxluk-Collag-Mv-M in (Edgar (With Collagen)) 7-7-1.5 gram Powder In Packet Discontinued 1 NMA PO TWICE DAILY WITH MEALS 60 30 2 April 30, 2022 12:00am August 14, 2023 9:03am Start: 04-30-2022 End: 08-14-2023 Rzoeq-Jjri-Aqedb-Collag-Mv-M in (Edgar (With Collagen)) 7-7-1.5 gram Powder In Packet Discontinued 1 NMA PO TWICE DAILY WITH MEALS 60 30 2 April 30, 2022 1:00am August 14, 2023 10:03am Start: 04-30-2022 End: 08-14-2023 Gjoza-Qgbe-Xwrhz-Collag-Mv-M in (Edgar (With Collagen)) 7-7-1.5 gram Powder In Packet Discontinued 1 NMA PO TWICE DAILY WITH MEALS 60 30 April 30, 2022 1:00am August 14, 2023 10:03am Start: 04-30-2022 Mflkx-Gpla-Ihr xu-Saqeaq-Vu-Min (Edgar (With Collagen)) 7-7-1.5 gram Powder In Packet Active 1 PACKET PO TWICE DAILY WITH MEALS 60 April 30, 2022 1:00am Start: 04-30-2022 Jfppa-Tbwc-Gmc he-Tdgmoj-Ur-Min (Edgar (With Collagen)) 7-7-1.5 gram Powder In Packet Active 1 PACKET PO TWICE DAILY WITH MEALS 60 April 30, 2022 12:00am azithromycin 250 mg oral tablet (18 sources) Macrolide Antimicrobial Start: 07-02-2023 End: 08-14-2023 take 2-5 tablets by mouth once daily Azithromycin 250 mg tablet Discontinued 0 PO .COMPLEX 6 0 July 01, 2023 11:00pm August 14, 2023 9:03am take 500 mg today (day 1), then 250 mg for 4 days (days 2-5) PO cephalexin 500 mg oral capsule (17 sources) Cephalosporin Antibacterial Start: 12-25-2023 End: 01-25-2024 take 1 capsule by mouth three times daily Cephalexin 500 mg capsule Discontinued 500 mg PO THREE TIMES A DAY 9 0 December 24, 2023 11:00pm January 25, 2024 4:23pm ciprofloxacin 500 mg oral tablet (18 sources) Quinolone Antimicrobial Start: 01-25-2024 End: 06-03-2024 take 1 tablet by mouth twice daily Ciprofloxacin Hcl 500 mg tablet Discontinued 500 mg PO TWICE A DAY 14 0 January 24, 2024 11:00pm June 03, 2024 2:32pm Start: 03-28-2022 take 1 tablet by marielle twice daily Ciprofloxacin Hcl (Cipro) 500 mg tablet Active 500 MG PO TWICE A DAY March 28, 2022 12:00am doxycycline hyclate 100 mg oral capsule (20 sources) Tetracycline-class Drug Start: 09-21-2023 End: 01-25-2024 take 1 capsule by mouth twice daily Doxycycline Hyclate 100 mg capsule Discontinued 100 mg PO TWICE A DAY 28 14 September 20, 2023 11:00pm January 25, 2024 4:23pm Start: 04-30-2022 End: 05-01-2022 take 1 tablet by mouth twice daily Doxycycline Monohydrate 100 mg tablet Discontinued 100 mg PO TWICE A DAY 28 14 April 30, 2022 12:00am May 01, 2022 9:13pm esomeprazole 40 mg delayed release oral capsule (20 sources) Proton Pump Inhibitor Start: 12-17-2017 End: 07-29-2024 take 1 capsule by mouth once daily Esomeprazole Magnesium (Nexium) 40 mg Capsule,Delayed Release(Dr/Ec) Discontinued 40 mg PO DAILY June 15, 2022 11:00pm July 29, 2024 9:09pm sodium hypochlorite 2.5 mg/ml topical solution (20 sources) Start: 04-30-2022 End: 06-03-2024 Sodium Hypochlorite (Hysept) 0.25 % solution Discontinued 0 .ROUTE .COMPLEX 473 1 May 26, 2023 1:42pm June 03, 2024 2:32pm APPLY ONE TIME A DAY FOR 30 DAYS L.Acidoph,Saliva-B. Bif-S.Therm (Acidophilus Probiotic Blend) 175 mg capsule (20 sources) Start: 09-21-2023 End: 06-03-2024 take 1 capsule by mouth once daily L.Acidoph,Saliva-B.Bi f-S.Therm (Acidophilus Probiotic Blend) 175 mg capsule Discontinued 1 NMA PO DAILY 30 30 September 20, 2023 11:00pm June 03, 2024 2:32pm Start: 09-21-2023 End: 06-03-2024 take 1 capsule by mouth once daily L.Acidoph,Saliva-B.Bif-S.Therm (Acidophi aminata Probiotic Blend) 175 mg capsule Discontinued 1 NMA PO DAILY 30 30 September 21, 2023 12:00am June 03, 2024 3:32pm Start: 09-21-2023 End: 06-03-2024 take 1 capsule by mouth once daily L.Acidoph,Saliva-B.Bif-S.Therm (Acidophi aminata Probiotic Blend) 175 mg capsule Discontinued 1 NMA PO DAILY 30 September 21, 2023 12:00am June 03, 2024 3:32pm Start: 08-27-2023 End: 06-03-2024 take 1 capsule by mouth once daily L.Acidoph,Saliva-B.Bif-S.Therm (Acidophi aminata Probiotic Blend) 175 mg capsule Discontinued 1 NMA PO DAILY 30 August 26, 2023 11:00pm June 03, 2024 2:32pm Start: 08-27-2023 End: 06-03-2024 take 1 capsule by mouth once daily L.Acidoph,Saliva-B.Bif-S.Therm (Acidophi aminata Probiotic Blend) 175 mg capsule Discontinued 1 NMA PO DAILY 30 August 27, 2023 12:00am June 03, 2024 3:32pm Start: 08-27-2023 End: 06-03-2024 take 1 capsule by mouth once daily L.Acidoph,Saliva-B.Bif-S.Therm (Acidophi aminata Probiotic Blend) 175 mg capsule Discontinued 1 NMA PO DAILY August 27, 2023 12:00am June 03, 2024 3:32pm linezolid 600 mg oral tablet (20 sources) Oxazolidinone Antibacterial Start: 06-12-2024 End: 07-29-2024 take 1 tablet by mouth twice daily Linezolid 600 mg tablet Discontinued 600 mg PO TWICE A DAY 14 7 0 June 11, 2024 11:00pm July 29, 2024 9:09pm Start: 03-06-2022 End: 03-20-2022 take 1 tablet by mouth twice daily Linezolid 600 mg tablet Discontinued 600 mg PO TWICE A DAY 28 14 0 March 06, 2022 12:00am March 19, 2022 12:00am March 20, 2022 12:04am methylPREDNISolone 4 mg oral tablet (18 sources) Corticosteroid Start: 07-02-2023 End: 07-08-2023 take 1 tablet by mouth once Methylprednisolone (Medrol (Chris)) 4 mg tablets,dose pack Discontinued 4 mg PO per package directions 21 6 0 July 01, 2023 11:00pm July 06, 2023 11:00pm July 07, 2023 11:05pm Start: 07-02-2023 End: 07-08-2023 metroNIDAZOLE 500 mg oral tablet (20 sources) Nitroimidazole Antimicrobial Start: 03-28-2022 End: 04-11-2022 take 1 tablet by mouth twice daily Metronidazole 500 mg tablet Discontinued 500 mg PO TWICE A DAY 28 14 0 March 28, 2022 12:00am April 10, 2022 12:00am April 11, 2022 12:05am (12 sources) Start: 09-21-2023 End: 06-03-2024 Start: 08-27-2023 End: 06-03-2024 Start: 04-30-2022 End: 08-14-2023 Problems Active Problems Problem Classification Problem Date Documented Da te Episodic/Chronic Acute bronchitis (19 sources) Acute bronchitis; Translations: [Acute bronchitis, unspecified] 07-02-2023 Episodic Administrative/social admission (20 sources) Bed-ridden; Translations: [Bed confinement status] Onset: 01-20-2025 04-17-2022 Episodic Comment on above: from a [...] thigh Complication of device; implant or graft (20 sources) Obstruction of suprapubic catheter; Translations: [Other mechanical complication of cystostomy catheter, initial encounter] Onset: 02-09-2025 01-21-2024 Episodic Conditions associated with dizziness or vertigo (12 sources) Intermittent vertigo; Translations: [Dizziness and giddiness] 08-07-2024 Episodic Diseases of white blood cells (20 sources) Leukocytosis; Translations: [Elevated white blood cell count, unspecified] 06-09-2024 Chronic Disorders of lipid metabolism (20 sources) Hyperlipidemia; Translations: [Hyperlipidemia, unspecified] 04-02-2018 Chronic E Codes: Fall (20 sources) Fall; Translations: [Unspecified fall, initial encounter] 05-02-2022 Episodic Essential hypertension (13 sources) Elevated blood pressure; Translations: [Essential (primary) hypertension] 08-02-2024 Chronic Fluid and electrolyte disorders (20 sources) Lactic acidosis; Translations: [Lactic acidosis] 06-09-2024 Episodic Genitourinary symptoms and ill-defined conditions (20 sources) Suprapubic urinary catheter in situ; Translations: [Other cystostomy status] 01-25-2024 Chronic Genitourinary symptoms and ill-defined conditions (13 sources) Retention of urine, unspecified; Translations: [Retention of urine] Onset: 06-22-2018 01-22-2024 Episodic Infective arthritis and osteomyelitis (except that caused by tuberculosis or sexually transmitted disease) (20 sources) Osteomyelitis; Translations: [Osteomyelitis, unspecified] Onset: 02-02-2025 04-17-2022 Chronic Nutritional deficiencies (6 sources) Deficiency of macronutrients; Translations: [Unspecified protein-calorie malnutrition] 10-24-2024 Chronic Other acquired deformities (20 sources) Scoliosis deformity of spine; Translations: [Scoliosis, unspecified] 09-16-2024 Chronic Other aftercare (2 sources) Patient encounter status; Translations: [Encounter for palliative care] 01-28-2025 Episodic Other aftercare (1 source) Encounter for palliative care; Translations: [Encounter for palliative care] Onset: 01-20-2025 Episodic Other diseases of bladder and urethra [...] injuries and conditions due to external causes (12 sources) Systemic inflammatory response syndrome; Translations: [Systemic inflammatory response syndrome (SIRS) of non-infectious origin without acute organ dysfunction] 06-09-2024 Episodic Other lower respiratory disease (20 sources) History of chronic obstructive airway disease; Translations: [Personal history of other diseases of the respiratory system] 01-21-2024 Episodic Other lower respiratory disease (13 sources) Tachypnea; Translations: [Tachypnea, not elsewhere classified] 08-02-2024 Episodic Other nervous system disorders (20 sources) Cervical myelopathy; Translations: [Disease of spinal cord, unspecified] 06-03-2024 Chronic Other nervous system disorders (20 sources) Disorder of brain; Translations: [Encephalopathy, unspecified] 08-01-2024 Chronic Other nervous system disorders (2 sources) Metabolic encephalopathy; Translations: [Metabolic encephalopathy] 01-28-2025 Chronic Other nervous system disorders (1 source) Metabolic encephalopathy; Translations: [Metabolic encephalopathy] Onset: 01-20-2025 Chronic Other nervous system disorders (20 sources) Acute postoperative pain; Translations: [Other acute postprocedural pain] 04-30-2022 Episodic Other nervous system disorders (17 sources) History of clinical finding in subject; Translations: [Personal history of other diseases of the nervous system and sense organs] 01-21-2024 Episodic Other nutritional; endocrine; and metabolic disorders (13 sources) H/O: hypothyroidism; Translations: [Personal history of other endocrine, nutritional and metabolic disease] 08-02-2024 Episodic Paralysis (20 sources) Paraplegia; Translations: [Paraplegia, unspecified] Onset: 02-02-2025 08-30-2023 Chronic Residual codes; unclassified (20 sources) Dependence on wheelchair; Translations: [Dependence on wheelchair] 09-06-2022 Chronic Residual codes; unclassified (20 sources) Dependence on wheelchair; Translations: [Wheelchair dependence] Onset: 02-02-2025 09-26-2022 Chronic Residual codes; unclassified (20 sources) Tobacco user; Translations: [Tobacco use] 04-02-2018 Episodic Residual codes; unclassified (7 sources) Tobacco use; Translations: [Tobacco use disorder] 04-28-2022 Episodic Residual codes; unclassified (13 sources) Altered mental status; Translations: [Altered mental status, unspecified] 08-02-2024 Episodic Residual codes; unclassified (12 sources) Hallucinations; Translations: [Hallucinations, unspecified] 08-07-2024 Episodic Residual codes; unclassified (2 sources) Delirium; Translations: [Disorientation, unspecified] 01-28-2025 Episodic Septicemia (except in labor) (3 sources) Sepsis; Translations: [Sepsis, unspecified organism] Onset: 01-20-2025 01-28-2025 Episodic Spinal cord injury (20 sources) Spinal cord injury; Translations: [Spinal cord injury] 04-17-2022 Chronic Spondylosis; intervertebral disc disorders; other back problems (20 sources) Thoracic myelopathy; Translations: [Other spondylosis with myelopathy, thoracic region] Onset: 10-20-2024 06-03-2024 Chronic Substance-related disorders (20 sources) Smoker; Translations: [Nicotine dependence, unspecified, uncomplicated] Onset: 02-02-2025 04-25-2022 Chronic Comment on above: 1-2 CIGARETTES PER D AY, SMOKED FOR 10 YRS. HAS STOPPED SMOKING FOR 3 MONTHS. Thyroid disorders (20 sources) Hypothyroidism; Translations: [Hypothyroidism, unspecified] Onset: 07-15-2024 04-02-2018 Chronic Unclassified (1 source) Acidosis, unspecified; Translations: [Acidosis, unspecified] Onset: 01-20-2025 Urinary tract infections (20 sources) Urinary tract infectious disease; Translations: [Urinary tract infection, site not specified] Onset: 01-20-2025 02-16-2022 Episodic Past or Other Problems Problem Classification Problem Date Documented Da te Episodic/Chronic Malaise and fatigue (13 sources) Asthenia; Translations: [Other malaise] Onset: 08-11-2024 08-07-2024 Episodic Spondylosis; intervertebral disc disorders; other back problems (20 sources) Cervical spine ankylosis; Translations: [Fusion of spine, cervical region] Onset: 06-03-2024 06-03-2024 Episodic Results Test Name Value Interpretation Reference Range Facility 36on 01-22-2025 36 S: Kalina Erickson home health nurse spoke with [facility] nurse regarding hand and arm tremors. B: Onset of symptoms/concern; Today after 6pm. A: Patients called in this evening with concern for current tremors of hand and arms to home. Discharged from hospital on Thursday. Diagnosed with urinary tract infection and sepsis. Given 3 days of antibiotic and oxygen on discharge. Home care nurse at home visit yesterday for resumption of care. Current vitals; 93% 2L of oxygen. Heart rate 66, Unable to obtain temperature. A & O base line. Ate well today. Super pubic cath present and ostomy to left lower quad. Home nurse encouraging patient to increase food and fluid tonight. Home care nurse does not feel need to go to emergency tonight. Requesting further plan. Next home visit 01/25. Bed bound currently, not sure can verbalize if increased weakness, numbness. was not happy patient was discharged so early from hospital. Denies fever. R: Advised will reach out to provider hotel concierge. Georgina verbalizes understanding and plan. 19:02: 2nd level triage. Paged hotel concierge provider Mark Zepeda. 19:04 Dr. Zepeda called RN back, advised if just hand/arm tremor without increased weakness or neurological symptoms ok to wait for home care visit on 01/25. New or worsening symptoms must go to ER. 19:10: Spoke Georgina home health nurse. calling back as talking. RN asked if home health nurse could ask a couple more questions related to neurological symptoms. Current vitals 97.8 temperature, 93% 2L oxygen, pulse 88. Denies shallow breathing, new or increased weakness, numbness or pain. Patient understands care advice. No further needs at this time. Patient instructed to call back with new or worsening symptoms. 1940: Secure Chat with Dr. Zepeda. Updating conversation with Home health nurse. TE sent to office Reason for Disposition [1] Caller is not with the adult (patient) AND [2] reporting urgent symptoms Protocols used: Information Only Call - No [id number] Normal [facility] Culture, Blood (WB)on 2024 CUB Blood cultures x2, from two different sites No growth in 5 days. Normal [facility] Comment on above: Performed By: #### M 200.1000 ####[facility] [address] [place], [address] Urine Cultureon 01-20-2025 [facility] Normal [facility] Comment on above: Performed By: #### M 100.2200 ####[facility] [address] [place], [address] Absolute lymphocyte countOrd ered By: Basilio Dill on 01-19-2025 Lymphocytes Auto (Unsp spec) [#/Vol] 1.89 10*3/uL 0.83-4.51 [facility] Absolute neutrophil countOrd ered By: Basilio Dill on 01-19-2025 Neutrophils (Bld) [#/Vol] 5.6 10*3/uL 2.0-7.7 [facility] Anion gap in Serum or Plasma Ordered By: Basilio Dill on 01-19-2025 Anion gap [Moles/Vol] 12 mmol/L 08-11 [facility] Automated lymphocyte count a s percentage of total leukocytesOrdered By: Basilio Dill on 01-19-2025 Lymphocytes/100 WBC Auto (Unsp spec) 21.6 % [facility] BUN/creatinine ratioOrdered By: Basilio Dill on 01-19-2025 Urea nitrogen/Creatinine [Mass ratio] 20.0 mg/mg 01-16 [facility] Basic Metabolic Profile (BMP )on 01-19-2025 BUN/CRE 20.0 RATIO Normal 01-16 [facility] Comment on above: Performed By: #### L 500.2500, L100.0100 ####[facility] [address] [place], [address] ECRCL 100.25 ml/min Normal 50-250 [facility] Comment on above: Performed By: #### L 500.2500, L100.0100 ####[facility] [address] [place], [address] GAP 12 Normal - [facility] Comment on above: Performed By: #### L 500.2500, L100.0100 ####[facility] [address] [place], [address] Potassium [Moles/Vol] 4.2 mmol/L Normal 3.3-5.1 [facility] Comment on above: Performed By: #### L 500.2500, L100.0100 ####[facility] [address] [place], [address] Basophil percentageOrdered B y: Basilio Dill on 01-19-2025 Basophils/100 WBC (Bld) 0.7 % 0-1 [facility] CBC W/Diff, Automatedon 12-29 Absolute Lymph 1.89 X10 3/uL Normal 0.83-4.51 [facility] Comment on above: Performed By: #### L 500.2500, L100.0100 ####[facility] [address] [place], [address] Absolute Neut 5.6 X10 3/uL Normal 2.0-7.7 [facility] Comment on above: Performed By: #### L 500.2500, L100.0100 ####[facility] [address] [place], [address] Basophils/100 WBC (Bld) 0.7 % Normal 0-1 [facility] Comment on above: Performed By: #### L 500.2500, L100.0100 ####[facility] [address] [place], [address] Eosinophils/100 WBC (Bld) 2.6 % Normal 0-5 [facility] Comment on above: Performed By: #### L 500.2500, L100.0100 ####[facility] [address] [place], [address] Erythrocyte distribution width (RBC) [Ratio] 16.5 % High 11.6-14.6 [facility] Comment on above: Performed By: #### L 500.2500, L100.0100 ####[facility] [address] [place], [address] Hematocrit (Bld) [Volume fraction] 39.8 % Low 40-54 [facility] Comment on above: Performed By: #### L 500.2500, L100.0100 ####[facility] [address] [place], [address] Hemoglobin (Bld) [Mass/Vol] 12.5 g/dL Low 13.0-16.5 [facility] Comment on above: Performed By: #### L 500.2500, L100.0100 ####[facility] [address] [place], [address] IG% 1.000 High 0.0-0.9 [facility] Comment on above: Result Comment: IG% - Immature Granulocytes (promyelocytes, myelocytes andmetamyelocytes) > 1% indicates that a LEFT SHIFT is Present. Performed By: #### L 500.2500, L100.0100 ####[facility] [address] [place], [address] Lymphocytes/100 WBC (Bld) 21.6 % Normal 19-41 [facility] Comment on above: Performed By: #### L 500.2500, L100.0100 ####[facility] [address] [place], [address] MCH (RBC) [Entitic mass] 26.9 pg Low 27.0-32.0 [facility] Comment on above: Performed By: #### L 500.2500, L100.0100 ####[facility] [address] [place], [address] MCHC (RBC) [Mass/Vol] 31.4 g/dL Low 32-36 [facility] Comment on above: Performed By: #### L 500.2500, L100.0100 ####[facility] [address] [place], [address] MCV (RBC) [Entitic vol] 85.6 fL Normal 80-94 [facility] Comment on above: Performed By: #### L 500.2500, L100.0100 ####[facility] [address] [place], [address] Monocytes/100 WBC (Bld) 10.1 % High 0-10 [facility] Comment on above: Performed By: #### L 500.2500, L100.0100 ####[facility] [address] [place], [address] Neutrophils/100 WBC (Bld) 64.0 % Normal 47-70 [facility] Comment on above: Performed By: #### L 500.2500, L100.0100 ####[facility] [address] [place], [address] Nucleated RBC (Bld) [#/Vol] 0 10*3/uL Normal 0-5 [facility] Comment on above: Performed By: #### L 500.2500, L100.0100 ####[facility] [address] [place], [address] Platelet mean volume (Bld) [Entitic vol] 9.6 fL Normal 6.2-12.0 [facility] Comment on above: Performed By: #### L 500.2500, L100.0100 ####[facility] [address] [place], [address] Platelets (Bld) [#/Vol] 421 10*3/uL Normal 150-450 [facility] Comment on above: Performed By: #### L 500.2500, L100.0100 ####[facility] [address] [place], [address] RBC (Bld) [#/Vol] 4.65 10*6/uL Normal 4.6-6.2 [facility] Comment on above: Performed By: #### L 500.2500, L100.0100 ####[facility] [address] [place], [address] RDW SD 51.1 fl High 35.1-43.9 [facility] Comment on above: Performed By: #### L 500.2500, L100.0100 ####[facility] [address] [place], [address] WBC (Bld) [#/Vol] 8.8 10*3/uL Normal 4.4-11.0 [facility] Comment on above: Performed By: #### L 500.2500, L100.0100 ####[facility] [address] [place], [address] Carbon dioxide, total [Moles /volume] in Central venous bloodOrdered By: Basilio Dill on 01-19-2025 CO2 [Moles/Vol] 25.1 mmol/L Normal 21.0-32.0 [facility] Comment on above: Performed By: #### L 500.2500, L100.0100 ####[facility] [address] [place], [address] Chloride assayOrdered By: Shaina Dill on 01-19-2025 Chloride [Moles/Vol] 99 mmol/L Normal 98-108 [facility] Comment on above: Performed By: #### L 500.2500, L100.0100 ####[facility] [address] [place], [address] Eosinophil percentageOrdered By: Basilio Dill on 01-19-2025 Eosinophils/100 WBC (Bld) 2.6 % 0-5 [facility] Erythrocyte distribution wid th ratioOrdered By: Basilio Dill on 01-19-2025 Erythrocyte distribution width (RBC) [Ratio] 16.5 % High 11.6-14.6 [facility] Erythrocyte distribution wid th standard deviationOrdered By: Basilio Dill on 01-19-2025 Erythrocyte distribution width (RBC) [Ratio] 51.1 fl High 35.1-43.9 [facility] Glomerular filtration rate ( GFR) estimation/1.73 sq m using serum, plasma, or whole bOrdered By: Basilio Dill on 01-19-2025 GFR/1.73 sq M.predicted among non-blacks MDRD (S/P/Bld) [Vol rate/Area] 106 mL/min/{1.73_m2} Normal >60 [facility] Comment on above: mL/min/1.73m2 CKD-EP I Creatinine Equation (2020) Result Comment: mL/m in/1.73m2 CKD-EPI Creatinine Equation (2020) Performed By: #### L 500.2500, L100.0100 ####[facility] [address] [place], [address] Hematocrit Auto (Bld) [Volum e fraction]Ordered By: Basilio Dill on 01-19-2025 Hematocrit (Bld) [Volume fraction] 39.8 % Low 40-54 [facility] Hemoglobin measurementOrdere d By: Basilio Dill on 01-19-2025 Hemoglobin (Bld) [Mass/Vol] 12.5 g/dL Low 13.0-16.5 [facility] Immature granulocytes/100 WB C Auto (Bld)Ordered By: Basilio Dill on 01-19-2025 Immature granulocytes/100 WBC (Bld) 1.000 % High 0.0-0.9 [facility] Comment on above: IG% - Immature Granu locytes (promyelocytes, myelocytes and metamyelocytes) > 1% indicates that a LEFT SHIFT is Present. MCV (mean corpuscular volume ) determinationOrdered By: Basilio Dill on 01-19-2025 MCV (RBC) [Entitic vol] 85.6 fL 80-94 [facility] MR/CON.PCM.PAon 01-19-2025 MR/CON.PCM.PA Normal [facility] Mean corpuscular hemoglobin (MCH) determinationOrdered By: Basilio Dill on 01-19-2025 MCH (RBC) [Entitic mass] 26.9 pg Low 27.0-32.0 [facility] Mean corpuscular hemoglobin concentration (MCHC) determinationOrdered By: Basilio Dill on 01-19-2025 MCHC (RBC) [Mass/Vol] 31.4 g/dL Low 32-36 [facility] Mean platelet volume determi nationOrdered By: Basilio Dill on 01-19-2025 Platelet mean volume (Bld) [Entitic vol] 9.6 fL 6.2-12.0 [facility] Monocyte percentageOrdered B y: Basilio Dill on 01-19-2025 Monocytes/100 WBC (Bld) 10.1 % High 0-10 [facility] Neutrophil percentageOrdered By: Basilio Dill on 01-19-2025 Neutrophils/100 WBC (Bld) 64.0 % 47-70 [facility] Nucleated red blood cell per centageOrdered By: Basilio Dill on 01-19-2025 Nucleated RBC/100 WBC (Bld) [Ratio] 0 % 0-5 [facility] Platelet countOrdered By: Shania Dill on 01-19-2025 Platelets (Bld) [#/Vol] 421 10*3/uL 150-450 [facility] Potassium measurement (mass/ volume)Ordered By: Basilio Dill on 01-19-2025 Potassium (Unsp spec) [Mass/Vol] 4.2 mmol/L 3.3-5.1 [facility] RBC Auto (Bld) [#/Vol]Ordere d By: Basilio Dill on 01-19-2025 RBC (Bld) [#/Vol] 4.65 10*6/uL 4.6-6.2 [facility] Serum creatinine measurement (mass/volume)Ordered By: Basilio Dill on 01-19-2025 Creatinine [Mass/Vol] 0.58 mg/dL Low 0.70-1.20 [facility] Comment on above: Performed By: #### L 500.2500, L100.0100 ####[facility] [address] [place], [address] Serum glucose measurement (m ass/volume)Ordered By: Basilio Dill on 01-19-2025 Glucose [Mass/Vol] 174 mg/dL High 70-99 [facility] Comment on above: Performed By: #### L 500.2500, L100.0100 ####[facility] [address] [place], [address] Serum or plasma calcium marlyn urement (mass/volume)Ordered By: Basilio Dill on 01-19-2025 Calcium [Mass/Vol] 9.3 mg/dL Normal 7.6-11.0 [facility] Comment on above: Performed By: #### L 500.2500, L100.0100 ####[facility] [address] [place], [address] Serum or plasma urea nitroge n measurement (mass/volume)Ordered By: Basilio Dill on 01-19-2025 Urea nitrogen [Mass/Vol] 12 mg/dL Normal 4-19 [facility] Comment on above: Performed By: #### L 500.2500, L100.0100 ####[facility] [address] [place], [address] Sodium levelOrdered By: Basilio Dill on 01-19-2025 Sodium [Moles/Vol] 136 mmol/L Normal 133-145 [facility] Comment on above: Performed By: #### L 500.2500, L100.0100 ####[facility] [address] [place], [address] White blood cell (WBC) count Ordered By: Basilio Dill on 01-19-2025 WBC (Bld) [#/Vol] 8.8 10*3/uL 4.4-11.0 [facility] Basic Metabolic Profile (BMP )on 01-18-2025 BUN/CRE 17.8 RATIO Normal 10-20 [facility] Comment on above: Performed By: #### L 500.2500, L100.0100 ####[facility] [address] [place], [address] Calcium [Mass/Vol] 8.7 mg/dL Normal 7.6-11.0 [facility] Comment on above: Performed By: #### L 500.2500, L100.0100 ####[facility] [address] [place], [address] Chloride [Moles/Vol] 102 mmol/L Normal 98-108 [facility] Comment on above: Performed By: #### L 500.2500, L100.0100 ####[facility] [address] [place], [address] CO2 [Moles/Vol] 23.6 mmol/L Normal 21.0-32.0 [facility] Comment on above: Performed By: #### L 500.2500, L100.0100 ####[facility] [address] [place], [address] Creatinine [Mass/Vol] 0.52 mg/dL Low 0.70-1.20 [facility] Comment on above: Performed By: #### L 500.2500, L100.0100 ####[facility] [address] [place], [address] ECRCL 100.25 ml/min Normal 50-250 [facility] Comment on above: Performed By: #### L 500.2500, L100.0100 ####[facility] [address] [place], [address] GAP 10 Normal 5-15 [facility] Comment on above: Performed By: #### L 500.2500, L100.0100 ####[facility] [address] [place], [address] GFR/1.73 sq M.predicted among non-blacks MDRD (S/P/Bld) [Vol rate/Area] 110 mL/min/{1.73_m2} Normal >60 [facility] Comment on above: Result Comment: mL/m in/1.73m2 CKD-EPI Creatinine Equation (2020) Performed By: #### L 500.2500, L100.0100 ####[facility] [address] [place], [address] Glucose [Mass/Vol] 165 mg/dL High 70-99 [facility] Comment on above: Performed By: #### L 500.2500, L100.0100 ####[facility] [address] [place], [address] Potassium [Moles/Vol] 4.6 mmol/L Normal 3.3-5.1 [facility] Comment on above: Performed By: #### L 500.2500, L100.0100 ####[facility] [address] [place], [address] Sodium [Moles/Vol] 135 mmol/L Normal 133-145 [facility] Comment on above: Performed By: #### L 500.2500, L100.0100 ####[facility] [address] [place], [address] Urea nitrogen [Mass/Vol] 9 mg/dL Normal 4-19 [facility] Comment on above: Performed By: #### L 500.2500, L100.0100 ####[facility] [address] [place], [address] CBC W/Diff, Automatedon 10-2 -2024 Absolute Lymph 1.71 X10 3/uL Normal 0.83-4.51 [facility] Comment on above: Performed By: #### L 500.2500, L100.0100 ####[facility] [address] [place], [address] Absolute Neut 5.8 X10 3/uL Normal 2.0-7.7 [facility] Comment on above: Performed By: #### L 500.2500, L100.0100 ####[facility] [address] [place], [address] Basophils/100 WBC (Bld) 0.8 % Normal 0-1 [facility] Comment on above: Performed By: #### L 500.2500, L100.0100 ####[facility] [address] [place], [address] Eosinophils/100 WBC (Bld) 3.4 % Normal 0-5 [facility] Comment on above: Performed By: #### L 500.2500, L100.0100 ####[facility] [address] [place], [address] Erythrocyte distribution width (RBC) [Ratio] 16.8 % High 11.6-14.6 [facility] Comment on above: Performed By: #### L 500.2500, L100.0100 ####[facility] [address] [place], [address] Hematocrit (Bld) [Volume fraction] 36.8 % Low 40-54 [facility] Comment on above: Performed By: #### L 500.2500, L100.0100 ####[facility] [address] [place], [address] Hemoglobin (Bld) [Mass/Vol] 11.4 g/dL Low 13.0-16.5 [facility] Comment on above: Performed By: #### L 500.2500, L100.0100 ####[facility] [address] [place], [address] IG% 0.900 Normal 0.0-0.9 [facility] Comment on above: Result Comment: IG% - Immature Granulocytes (promyelocytes, myelocytes andmetamyelocytes) > 1% indicates that a LEFT SHIFT is Present. Performed By: #### L 500.2500, L100.0100 ####[facility] [address] [place], [address] Lymphocytes/100 WBC (Bld) 19.9 % Normal 19-41 [facility] Comment on above: Performed By: #### L 500.2500, L100.0100 ####[facility] [address] [place], [address] MCH (RBC) [Entitic mass] 27.3 pg Normal 27.0-32.0 [facility] Comment on above: Performed By: #### L 500.2500, L100.0100 ####[facility] [address] [place], [address] MCHC (RBC) [Mass/Vol] 31.0 g/dL Low 32-36 [facility] Comment on above: Performed By: #### L 500.2500, L100.0100 ####[facility] [address] [place], [address] MCV (RBC) [Entitic vol] 88.0 fL Normal 80-94 [facility] Comment on above: Performed By: #### L 500.2500, L100.0100 ####[facility] [address] [place], [address] Monocytes/100 WBC (Bld) 7.8 % Normal 0-10 [facility] Comment on above: Performed By: #### L 500.2500, L100.0100 ####[facility] [address] [place], [address] Neutrophils/100 WBC (Bld) 67.2 % Normal 47-70 [facility] Comment on above: Performed By: #### L 500.2500, L100.0100 ####[facility] [address] [place], [address] Nucleated RBC (Bld) [#/Vol] 0 10*3/uL Normal 0-5 [facility] Comment on above: Performed By: #### L 500.2500, L100.0100 ####[facility] [address] [place], [address] Platelet mean volume (Bld) [Entitic vol] 9.7 fL Normal 6.2-12.0 [facility] Comment on above: Performed By: #### L 500.2500, L100.0100 ####[facility] [address] [place], [address] Platelets (Bld) [#/Vol] 398 10*3/uL Normal 150-450 [facility] Comment on above: Performed By: #### L 500.2500, L100.0100 ####[facility] [address] [place], [address] RBC (Bld) [#/Vol] 4.18 10*6/uL Low 4.6-6.2 [facility] Comment on above: Performed By: #### L 500.2500, L100.0100 ####[facility] [address] [place], [address] RDW SD 54.1 fl High 35.1-43.9 [facility] Comment on above: Performed By: #### L 500.2500, L100.0100 ####[facility] [address] [place], [address] WBC (Bld) [#/Vol] 8.6 10*3/uL Normal 4.4-11.0 [facility] Comment on above: Performed By: #### L 500.2500, L100.0100 ####[facility] [address] [place], [address] Electrocardiogram reportOrde red By: Kari Ortega on 01-18-2025 EKG study [facility] [address] [place] [address] 12 Lead EKG 01/17/25 1035 MR#: [id number] Acct: [id number] Name: JORGE COVINGTON Rep #:[id number] : 1955 69 From: Kari cartwright MD Attending Dr: Dr. Basilio Dill, DO Status: ADM IN Ordering Dr: Hebert Saavedra MD Date: 01/17 Location: U Sex: M C Admitted: 01/17/25 Test Reason : ALT MS Blood Pressure : */* mmHG Vent. Rate : 74 BPM Atrial Rate : 74 BPM P-R Int : 170 ms QRS Dur : 82 ms QT Int : 348 ms P-R-T Axes : 69 54 77 degrees QTcB Int : 386 ms Normal sinus rhythm Low voltage QRS Borderline ECG Confirmed by Kari Ortega ([id number]), editorial clerk SARAH CEVALLOS ([id number]) on :40:41 PM Referred By: Confirmed By: Kari Ortega 01/18/25 1340 Date _ Kari Ortega MD CC: Dr. Basilio Dill DO; Dr. Brian Cardona MD; Dr. Hebert Saavedra MD ~ Signed [facility] Other Phone: 12 Lead EKGon 01-17-2025 12 Lead EKG Normal [facility] Bilirubin Test strip Ql (U)O rdered By: Hebert Saavedra on 01-17-2025 Bilirubin Ql (U) Negative Negative [facility] Bilirubin, totalOrdered By: Hebert Saavedra on 01-17-2025 Bilirubin [Mass/Vol] mg/dL 0.00-1.30 [facility] Blood cultureOrdered By: Hebert Saavedra on 01-17-2025 Bacteria identified Cx Nom (Bld) No growth in 5 days. [facility] CBC W/Diff, Automatedon 12-29 Absolute Lymph 1.72 X10 3/uL Normal 0.83-4.51 [facility] Comment on above: Performed By: #### L 100.0100, L500.4050, L503.6005 ####[facility] [address] [place], [address] Absolute Neut 5.1 X10 3/uL Normal 2.0-7.7 [facility] Comment on above: Performed By: #### L 100.0100, L500.4050, L503.6005 ####[facility] [address] [place], [address] Basophils/100 WBC (Bld) 0.7 % Normal 0-1 [facility] Comment on above: Performed By: #### L 100.0100, L500.4050, L503.6005 ####[facility] [address] [place], [address] Eosinophils/100 WBC (Bld) 4.1 % Normal 0-5 [facility] Comment on above: Performed By: #### L 100.0100, L500.4050, L503.6005 ####[facility] [address] [place], [address] Erythrocyte distribution width (RBC) [Ratio] 17.2 % High 11.6-14.6 [facility] Comment on above: Performed By: #### L 100.0100, L500.4050, L503.6005 ####[facility] [address] [place], [address] Hematocrit (Bld) [Volume fraction] 41.0 % Normal 40-54 [facility] Comment on above: Performed By: #### L 100.0100, L500.4050, L503.6005 ####[facility] [address] [place], [address] Hemoglobin (Bld) [Mass/Vol] 13.0 g/dL Normal 13.0-16.5 [facility] Comment on above: Performed By: #### L 100.0100, L500.4050, L503.6005 ####[facility] [address] [place], [address] IG% 1.000 High 0.0-0.9 [facility] Comment on above: Result Comment: IG% - Immature Granulocytes (promyelocytes, myelocytes andmetamyelocytes) > 1% indicates that a LEFT SHIFT is Present. Performed By: #### L 100.0100, L500.4050, L503.6005 ####[facility] [address] [place], [address] Lymphocytes/100 WBC (Bld) 21.3 % Normal 19-41 [facility] Comment on above: Performed By: #### L 100.0100, L500.4050, L503.6005 ####[facility] [address] [place], [address] MCH (RBC) [Entitic mass] 27.8 pg Normal 27.0-32.0 [facility] Comment on above: Performed By: #### L 100.0100, L500.4050, L503.6005 ####[facility] [address] [place], [address] MCHC (RBC) [Mass/Vol] 31.7 g/dL Low 32-36 [facility] Comment on above: Performed By: #### L 100.0100, L500.4050, L503.6005 ####[facility] [address] [place], [address] MCV (RBC) [Entitic vol] 87.8 fL Normal 80-94 [facility] Comment on above: Performed By: #### L 100.0100, L500.4050, L503.6005 ####[facility] [address] [place], [address] Monocytes/100 WBC (Bld) 9.5 % Normal 0-10 [facility] Comment on above: Performed By: #### L 100.0100, L500.4050, L503.6005 ####[facility] [address] [place], [address] Neutrophils/100 WBC (Bld) 63.4 % Normal 47-70 [facility] Comment on above: Performed By: #### L 100.0100, L500.4050, L503.6005 ####[facility] [address] [place], [address] Nucleated RBC (Bld) [#/Vol] 0 10*3/uL Normal 0-5 [facility] Comment on above: Performed By: #### L 100.0100, L500.4050, L503.6005 ####[facility] [address] [place], [address] Platelet mean volume (Bld) [Entitic vol] 9.8 fL Normal 6.2-12.0 [facility] Comment on above: Performed By: #### L 100.0100, L500.4050, L503.6005 ####[facility] [address] [place], [address] Platelets (Bld) [#/Vol] 378 10*3/uL Normal 150-450 [facility] Comment on above: Performed By: #### L 100.0100, L500.4050, L503.6005 ####[facility] [address] [place], [address] RBC (Bld) [#/Vol] 4.67 10*6/uL Normal 4.6-6.2 [facility] Comment on above: Performed By: #### L 100.0100, L500.4050, L503.6005 ####[facility] [address] [place], [address] RDW SD 54.6 fl High 35.1-43.9 [facility] Comment on above: Performed By: #### L 100.0100, L500.4050, L503.6005 ####[facility] [address] [place], [address] WBC (Bld) [#/Vol] 8.1 10*3/uL Normal 4.4-11.0 [facility] Comment on above: Performed By: #### L 100.0100, L500.4050, L503.6005 ####[facility] [address] [place], [address] Chest PA and Lateralon 01-17 Chest PA and Lateral Normal [facility] Comprehensive Metabolic Prof ilon 01-17-2025 Albumin [Mass/Vol] 3.5 g/dL Normal 3.4-4.8 [facility] Comment on above: Performed By: #### L 100.0100, L500.4050, L503.6005 ####[facility] [address] [place], [address] Albumin/Globulin [Mass ratio] 0.9 {ratio} Normal 0.9-2.4 [facility] Comment on above: Performed By: #### L 100.0100, L500.4050, L503.6005 ####[facility] [address] [place], [address] ALK PHOS 121 U/L Normal 40-129 [facility] Comment on above: Performed By: #### L 100.0100, L500.4050, L503.6005 ####[facility] [address] [place], [address] ALT [Catalytic activity/Vol] 21 U/L Normal <=46 [facility] Comment on above: Performed By: #### L 100.0100, L500.4050, L503.6005 ####[facility] [address] [place], [address] AST [Catalytic activity/Vol] 18 U/L Normal <=37 [facility] Comment on above: Performed By: #### L 100.0100, L500.4050, L503.6005 ####[facility] [address] [place], [address] BUN/CRE 18.9 RATIO Normal 10-20 [facility] Comment on above: Performed By: #### L 100.0100, L500.4050, L503.6005 ####[facility] [address] [place], [address] Calcium [Mass/Vol] 9.2 mg/dL Normal 7.6-11.0 [facility] Comment on above: Performed By: #### L 100.0100, L500.4050, L503.6005 ####[facility] [address] [place], [address] Chloride [Moles/Vol] 101 mmol/L Normal 98-108 [facility] Comment on above: Performed By: #### L 100.0100, L500.4050, L503.6005 ####[facility] [address] [place], [address] CO2 [Moles/Vol] 23.7 mmol/L Normal 21.0-32.0 [facility] Comment on above: Performed By: #### L 100.0100, L500.4050, L503.6005 ####[facility] [address] [place], [address] Creatinine [Mass/Vol] 0.59 mg/dL Low 0.70-1.20 [facility] Comment on above: Performed By: #### L 100.0100, L500.4050, L503.6005 ####[facility] [address] [place], [address] ECRCL 102.95 ml/min Normal 50-250 [facility] Comment on above: Performed By: #### L 100.0100, L500.4050, L503.6005 ####[facility] [address] [place], [address] GAP 11 Normal 5-15 [facility] Comment on above: Performed By: #### L 100.0100, L500.4050, L503.6005 ####[facility] [address] [place], [address] GFR/1.73 sq M.predicted among non-blacks MDRD (S/P/Bld) [Vol rate/Area] 106 mL/min/{1.73_m2} Normal >60 [facility] Comment on above: Result Comment: mL/m in/1.73m2 CKD-EPI Creatinine Equation (2020) Performed By: #### L 100.0100, L500.4050, L503.6005 ####[facility] [address] [place], [address] Globulin (S) [Mass/Vol] 3.8 g/dL Normal 2.2-4.2 [facility] Comment on above: Performed By: #### L 100.0100, L500.4050, L503.6005 ####[facility] [address] [place], [address] Glucose [Mass/Vol] 258 mg/dL High 70-99 [facility] Comment on above: Performed By: #### L 100.0100, L500.4050, L503.6005 ####[facility] [address] [place], [address] Potassium [Moles/Vol] 4.6 mmol/L Normal 3.3-5.1 [facility] Comment on above: Performed By: #### L 100.0100, L500.4050, L503.6005 ####[facility] [address] [place], [address] Sodium [Moles/Vol] 136 mmol/L Normal 133-145 [facility] Comment on above: Performed By: #### L 100.0100, L500.4050, L503.6005 ####[facility] [address] [place], [address] T BILI < 0.15 Normal 0.00-1.30 [facility] Comment on above: Performed By: #### L 100.0100, L500.4050, L503.6005 ####[facility] [address] [place], [address] T PROT 7.2 g/dL Normal 5.9-8.4 [facility] Comment on above: Performed By: #### L 100.0100, L500.4050, L503.6005 ####[facility] [address] [place], [address] Urea nitrogen [Mass/Vol] 11 mg/dL Normal 4-19 [facility] Comment on above: Performed By: #### L 100.0100, L500.4050, L503.6005 ####[facility] [address] [place], [address] Emergency Department Summary on 01-17-2025 Emergency Department Summary Normal [facility] H AND P Exam - Hospitaliston 01-17-2025 H&P Exam - Hospitalist Normal [facility] Ketones Test strip Ql (U)Ord ered By: Hebert Saavedra on 01-17-2025 Ketones Ql (U) Negative Negative [facility] Laboratory - Chemistry and C hemistry - challengeOrdered By: Hebert Saavedra on 01-17-2025 AST [Catalytic activity/Vol] 18 U/L <38 [facility] Lactic Acidon 01-17-2025 Lactate [Moles/Vol] 2.3 mmol/L Invalid Interpretation Code 0.0-2.0 [facility] Comment on above: Result Comment: Crit ical Result(s) Called at:01/17/25 1413 by:?KJ Results read back by same. Performed By: #### L 503.6005 ####[facility] [address] [place], [address] Lactate [Moles/Vol] 2.1 mmol/L Invalid Interpretation Code 0.0-2.0 [facility] Comment on above: Order Comment: Y Result Comment: Crit ical Result(s) Called at 1156: by: HELEN GREWAL. ??Results read back by same. Performed By: #### L 100.0100, L500.4050, L503.6005 ####[facility] [id number] [place], [address] Lactic acid measurementOrder ed By: Hebert Saavedra on 01-17-2025 Lactate [Moles/Vol] 2.3 mmol/L Critically high 0.0-2.0 [facility] Comment on above: Critical Result(s) C alled at:01/17/25 1413 by: RUFINA BLACKWELL Results read back by same. Microscopic analysis of urin e for red blood cells (RBC)Ordered By: Hebert Saavedra on 01-17-2025 Microscopic analysis of urine for red blood cells (RBC) 0 SEEN /hpf 0-5 [facility] Mucus LM Ql (Urine sed)Order ed By: Hebert Saavedra on 01-17-2025 Mucus Ql (Urine sed) 0 SEEN /hpf [facility] Nitrite Test strip Ql (U)Ord ered By: Hebert Saavedra on 01-17-2025 Nitrite Ql (U) Positive High Negative [facility] Protein Test strip Ql (U)Ord ered By: Hebert Saavedra on 01-17-2025 Protein Ql (U) 30 mg/dl High Negative [facility] Serum globulin measurementOr dered By: Hebert Saavedra on 01-17-2025 Globulin (S) [Mass/Vol] 3.8 g/dL 2.2-4.2 [facility] Serum or plasma alanine orozco otransferase (ALT) measurementOrdered By: Hebert Saavedra on 01-17-2025 ALT [Catalytic activity/Vol] 21 U/L <47 [facility] Serum or plasma albumin marlyn urement (mass/volume)Ordered By: Hebert Saavedra on 01-17-2025 Albumin [Mass/Vol] 3.5 g/dL 3.4-4.8 [facility] Serum or plasma albumin/glob ulin mass ratioOrdered By: Hebertgerman Saavedra on 01-17-2025 Albumin/Globulin [Mass ratio] 0.9 {ratio} 0.9-2.4 [facility] Serum or plasma alkaline marisol sphatase measurementOrdered By: Hebert Saavedra on 01-17-2025 ALP [Catalytic activity/Vol] 121 U/L 40-129 [facility] Squamous epithelial cells de tection in urine sediment by light microscopyOrdered By: Hebert Quentin on 01-17-2025 Epithelial cells.squamous LM Ql (Urine sed) 0 SEEN /hpf 0-5 [facility] Total proteinOrdered By: Hebert Saavedra on 01-17-2025 Protein [Mass/Vol] 7.2 g/dL 5.9-8.4 [facility] Urinalysis, Completeon 01-17 BACTERIA 2+ /hpf Normal None Seen [facility] Comment on above: Order Comment: LACIE CTOR TO SPECIFY Performed By: #### L 400.0001 ####[facility] [address] [place] [address] WBC 10-25 SEEN Normal 0-[address] [place] [address] Comment on above: Order Comment: LACIE CTOR TO SPECIFY Performed By: #### L 400.0001 ####[facility] [address] [place] [address] EPI,SQUAMOUS 0 SEEN Normal 0-[address] [place] [address] Comment on above: Order Comment: LACIE CTOR TO SPECIFY Performed By: #### L 400.0001 ####[facility] [address] [place], [address] Mucus Ql (Urine sed) 0 SEEN Normal [facility] Comment on above: Order Comment: LACIE CTOR TO SPECIFY Performed By: #### L 400.0001 ####[facility] [address] [facility] [address] RBC 0 SEEN Normal 0-5 [facility] Comment on above: Order Comment: LACIE CTOR TO SPECIFY Performed By: #### L 400.0001 ####[facility] [address] [facility] [address] Urine clarityOrdered By: Hebert Saavedra on 01-17-2025 Clarity (U) Cloudy Clear [facility] Urine color determinationOrd ered By: Hebert Saavedra on 01-17-2025 Color (U) Yellow Yellow [facility] Urine cultureOrdered By: Hebert Saavedra on 01-17-2025 Bacteria identified Cx Nom (U) Citrobacter freundii Abnormal [facility] Bacteria identified Cx Nom (U) Providencia alcalifaciens Abnormal [facility] Urine glucose detectionOrder ed By: Hebert Saavedra on 01-17-2025 Glucose Ql (U) Normal mg/dl Normal [facility] Urine leukocyte esterase det ection by dipstickOrdered By: Hebert Saavedra on 01-17-2025 Leukocyte esterase Test strip Ql (U) 500 /ul High Negative [facility] Urine pHOrdered By: Hebert porter on 01-17-2025 pH (U) 6.0 [pH] 5.0 - 8.0 [facility] Urine sediment bacteria coun t by microscopy (number/high power field)Ordered By: Heebrt Saavedra on 01-17-2025 Bacteria LM.HPF (Urine sed) [#/Area] 2 /[HPF] None Seen [facility] Urine specific gravity measu rementOrdered By: Hebert Saavedra on 01-17-2025 Specific gravity (U) [Rel density] 1.020 1.002-1.030 [facility] Urine urobilinogen measureme ntOrdered By: Hebertgerman Saavedra on 01-17-2025 Urobilinogen Ql (U) Normal mg/dl Normal [facility] White blood cell countOrdere d By: Hebert Saavedra on 01-17-2025 White blood cell count 10-25 SEEN /hpf 0-5 [facility] Basic Metabolic Profile (BMP )on 01-06-2025 BUN/CRE 19.1 RATIO Normal -20 [facility] Comment on above: Order Comment: CBC W NOT DRAWN THIS VISIT Performed By: #### L 400.2010, L503.0106, L500.2500, L501.5200, L501.9520, M100.2200 ####[facility] [address] [place], [address] Calcium [Mass/Vol] 9.4 mg/dL Normal 7.6-11.0 [facility] Comment on above: Order Comment: CBC W NOT DRAWN THIS VISIT Performed By: #### L 400.2010, L503.0106, L500.2500, L501.5200, L501.9520, M100.2200 ####[facility] [address] [place], [address] Chloride [Moles/Vol] 98 mmol/L Normal 98-108 [facility] Comment on above: Order Comment: CBC W NOT DRAWN THIS VISIT Performed By: #### L 400.2010, L503.0106, L500.2500, L501.5200, L501.9520, M100.2200 ####[facility] [address] [place], [address] CO2 [Moles/Vol] 23.2 mmol/L Normal 21.0-32.0 [facility] Comment on above: Order Comment: CBC W NOT DRAWN THIS VISIT Performed By: #### L 400, L503.0106, L500.2500, L501.5200, L501.9520, M100.2200 ####[facility] [address] [place], [address] Creatinine [Mass/Vol] 0.56 mg/dL Low 0.70-1.20 [facility] Comment on above: Order Comment: CBC W NOT DRAWN THIS VISIT Performed By: #### L 400, L503.0106, L500.2500, L501.5200, L501.9520, M100.2200 ####[facility] [address] [place], [address] GAP 16 High 5-15 [facility] Comment on above: Order Comment: CBC W NOT DRAWN THIS VISIT Performed By: #### L 400, L503.0106, L500.2500, L501.5200, L501.9520, M100.2200 ####[facility] [address] [place], [address] GFR/1.73 sq M.predicted among non-blacks MDRD (S/P/Bld) [Vol rate/Area] 107 mL/min/{1.73_m2} Normal >60 [facility] Comment on above: Order Comment: CBC W NOT DRAWN THIS VISIT Result Comment: mL/m in/1.73m2 CKD-EPI Creatinine Equation (2020) Performed By: #### L 400, L503.0106, L500.2500, L501.5200, L501.9520, M100.2200 ####[facility] [address] [place], [address] Glucose [Mass/Vol] 137 mg/dL High 70-99 [facility] Comment on above: Order Comment: CBC W NOT DRAWN THIS VISIT Performed By: #### L , L503.0106, L500.2500, L501.5200, L501.9520, M100.2200 ####[facility] [address] [place], [address] Potassium [Moles/Vol] 4.6 mmol/L Normal 3.3-5.1 [facility] Comment on above: Order Comment: CBC W NOT DRAWN THIS VISIT Result Comment: Hemo lysis present, Results??could be affected.?? Performed By: #### L 400, L503.0106, L500.2500, L501.5200, L501.9520, M100.2200 ####[facility] [address] [place], [address] Sodium [Moles/Vol] 138 mmol/L Normal 133-145 [facility] Comment on above: Order Comment: CBC W NOT DRAWN THIS VISIT Performed By: #### L , L503.0106, L500.2500, L501.5200, L501.9520, M100.2200 ####[facility] [address] [place], [address] Urea nitrogen [Mass/Vol] 11 mg/dL Normal 4-19 [facility] Comment on above: Order Comment: CBC W NOT DRAWN THIS VISIT Performed By: #### L 400.2010, L503.0106, L500.2500, L501.5200, L501.9520, M100.2200 ####[facility] [address] [place], [address] Magnesiumon 01-06-2025 Magnesium [Mass/Vol] 1.8 mg/dL Normal 1.5-2.2 [facility] Comment on above: Order Comment: CBC W NOT DRAWN THIS VISIT Performed By: #### L 400.2010, L503.0106, L500.2500, L501.5200, L501.9520, M100.2200 ####[facility] [address] [place], [address] Urine Cultureon 01-06-2025 URC Normal [facility] Comment on above: Performed By: #### L 400.2010, L503.0106, L500.2500, L501.5200, L501.9520, M100.2200 ####[facility] [address] [place], [address] Anion gap in Serum or Plasma Ordered By: Brian Cardona on 01-04-2025 Anion gap [Moles/Vol] 16 mmol/L High 5-15 [facility] BUN/creatinine ratioOrdered By: Brian Cardona on 01-04-2025 Urea nitrogen/Creatinine [Mass ratio] 19.1 mg/mg 1020 [facility] Bilirubin Test strip Ql (U)O rdered By: Brian Cardona on 01-04-2025 Bilirubin Ql (U) Negative Negative [facility] Carbon dioxide, total [Moles /volume] in Central venous bloodOrdered By: Brian Cardona on 01-04-2025 CO2 [Moles/Vol] 23.2 mmol/L 21.0-32.0 [facility] Chloride assayOrdered By: Dav Cardona on 01-04-2025 Chloride [Moles/Vol] 98 mmol/L 98-108 [facility] Glomerular filtration rate ( GFR) estimation/1.73 sq m using serum, plasma, or whole bOrdered By: Brian Cardona on 01-04-2025 GFR/1.73 sq M.predicted among non-blacks MDRD (S/P/Bld) [Vol rate/Area] 107 mL/min/{1.73_m2} >60 [facility] Comment on above: mL/min/1.73m2 CKD-EP I Creatinine Equation (2020) Ketones Test strip Ql (U)Ord ered By: Brian Cardona on 01-04-2025 Ketones Ql (U) Negative Negative [facility] Magnesium measurement (mass/ volume)Ordered By: Brian Cardona on 01-04-2025 Magnesium (Unsp spec) [Mass/Vol] 1.8 mg/dL 1.5-2.2 [facility] Nitrite Test strip Ql (U)Ord ered By: Brian Cardona on 01-04-2025 Nitrite Ql (U) Positive High Negative [facility] Potassium measurement (mass/ volume)Ordered By: Brian Cardona on 01-04-2025 Potassium (Unsp spec) [Mass/Vol] 4.6 mmol/L 3.3-5.1 [facility] Comment on above: Hemolysis present, R esults could be affected. Protein Test strip Ql (U)Ord ered By: Brian Cardona on 01-04-2025 Protein Ql (U) 30 mg/dl High Negative [facility] Serum creatinine measurement (mass/volume)Ordered By: Brian Cardona on 01-04-2025 Creatinine [Mass/Vol] 0.56 mg/dL Low 0.70-1.20 [facility] Serum glucose measurement (m ass/volume)Ordered By: Brian Cardona on 01-04-2025 Glucose [Mass/Vol] 137 mg/dL High 70-99 [facility] Serum or plasma calcium marlyn urement (mass/volume)Ordered By: Brian Cardona on 01-04-2025 Calcium [Mass/Vol] 9.4 mg/dL 7.6-11.0 [facility] Serum or plasma urea nitroge n measurement (mass/volume)Ordered By: Brian Cardona on 01-04-2025 Urea nitrogen [Mass/Vol] 11 mg/dL 4-19 [facility] Sodium levelOrdered By: Amol Cardona on 01-04-2025 Sodium [Moles/Vol] 138 mmol/L 133-145 [facility] TSH DL <= 0.005 mIU/L QnOrde red By: Brian Cardona on 01-04-2025 TSH Qn 5.050 uIU/mL High 0.300-4.200 [facility] Thyroid Stim Hormone (TSH)on 01-04-2025 TSH 5.050 uIU/mL High 0.300-4.200 [facility] Comment on above: Order Comment: CBC W NOT DRAWN THIS VISIT Performed By: #### L 400.2010, L503.0106, L500.2500, L501.5200, L501.9520, M100.2200 ####[facility] [address] [place], [address] Urinalysis, Routine (Dipstic k)on 01-04-2025 BILIRUBIN URINE Negative Normal Negative [facility] Comment on above: Order Comment: CLEAN CATCH Performed By: #### L 400.2010, L503.0106, L500.2500, L501.5200, L501.9520, M100.2200 ####[facility] [address] [place], [address] Clarity (U) Turbid Normal Clear [facility] Comment on above: Order Comment: CLEAN CATCH Performed By: #### L 400.2010, L503.0106, L500.2500, L501.5200, L501.9520, M100.2200 ####[facility] [address] [place], [address] Color (U) Straw Normal Yellow [facility] Comment on above: Order Comment: CLEAN CATCH Performed By: #### L 400, L503.0106, L500.2500, L501.5200, L501.9520, M100.2200 ####[facility] [address] [place], [address] GLUCOSE, UR Normal Normal Normal [facility] Comment on above: Order Comment: CLEAN CATCH Performed By: #### L 400.2010, L503.0106, L500.2500, L501.5200, L501.9520, M100.2200 ####[facility] [address] [place], [address] KETONE UR Negative Normal Negative [facility] Comment on above: Order Comment: CLEAN CATCH Performed By: #### L 400.2010, L503.0106, L500.2500, L501.5200, L501.9520, M100.2200 ####[facility] [address] [place], [address] LEUK ESTERASE 500 /ul Abnormal Negative [facility] Comment on above: Order Comment: CLEAN CATCH Performed By: #### L 400, L503.0106, L500.2500, L501.5200, L501.9520, M100.2200 ####[facility] [address] [place], [address] Nitrite Ql (U) Positive Abnormal Negative [facility] Comment on above: Order Comment: CLEAN CATCH Performed By: #### L 400, L503.0106, L500.2500, L501.5200, L501.9520, M100.2200 ####[facility] [address] [place], [address] OCCULT BLOOD-UR 150 /ul Abnormal Negative [facility] Comment on above: Order Comment: CLEAN CATCH Performed By: #### L 400, L503.0106, L500.2500, L501.5200, L501.9520, M100.2200 ####[facility] [address] [place], [address] pH UR 8.0 Normal 5.0 - 8.0 [facility] Comment on above: Order Comment: CLEAN CATCH Performed By: #### L 400, L503.0106, L500.2500, L501.5200, L501.9520, M100.2200 ####[facility] [address] [place], [address] PROT DIPSTX 30 mg/dl Abnormal Negative [facility] Comment on above: Order Comment: CLEAN CATCH Performed By: #### L 400.2010, L503.0106, L500.2500, L501.5200, L501.9520, M100.2200 ####[facility] [address] [place], [address] SP.GR. DIPSTX 1.015 Normal 1.002-1.030 [facility] Comment on above: Order Comment: CLEAN CATCH Performed By: #### L 400.2010, L503.0106, L500.2500, L501.5200, L501.9520, M100.2200 ####[facility] [address] [place], [address] UROBILI Normal Normal Normal [facility] Comment on above: Order Comment: CLEAN CATCH Performed By: #### L 400.2010, L503.0106, L500.2500, L501.5200, L501.9520, M100.2200 ####[facility] [address] [place], [address] Urine clarityOrdered By: Kaleb Cardona on 01-04-2025 Clarity (U) Turbid Clear [facility] Urine color determinationOrd ered By: Brian Cardona on 01-04-2025 Color (U) Straw Yellow [facility] Urine cultureOrdered By: Kaleb Cardona on 01-04-2025 Bacteria identified Cx Nom (U) Klebsiella oxytoca Abnormal [facility] Urine glucose detectionOrder ed By: Brian Cardona on 01-04-2025 Glucose Ql (U) Normal mg/dl Normal [facility] Urine leukocyte esterase det ection by dipstickOrdered By: Brian Cardona on 01-04-2025 Leukocyte esterase Test strip Ql (U) 500 /ul High Negative [facility] Urine pHOrdered By: Brian Cardona on 10-08-2025 pH (U) 8.0 [pH] 5.0 - 8.0 [facility] Urine specific gravity measu rementOrdered By: Brian Cardona on 01-04-2025 Specific gravity (U) [Rel density] 1.015 1.002-1.030 [facility] Urine urobilinogen measureme ntOrdered By: Brian Cardona on 01-04-2025 Urobilinogen Ql (U) Normal mg/dl Normal [facility] Vitamin B12on 01-04-2025 Cobalamin (Vitamin B12) [Mass/Vol] pg/mL Low 180-914 [facility] Comment on above: Order Comment: CBC W NOT DRAWN THIS VISIT Performed By: #### L 400.2011, L503.0106, L500.2500, L501.5200, L501.9520, M100.2200 ####[facility] [address] [facility] [place], [place], [address] Orthopedic Visit Reporton Orthopedic Visit Report Normal [facility] Magnetic resonance imaging r eportOrdered By: Khurram Lamb on 10-16-2024 Study report [facility] Imaging Services [address] [place], [place] [address] Spine Thoracic (Routine) MR#: [id number] Acct: [id number] Name: JORGE COVINGTON Rep #: [id number] : [id number] M [id number] From: Mariola Lamb MD PCP: Dr. Brian Cardona MD Status: RE G CLI Study:Spine Thoracic (Routine) Date of Exam: 10/14/24 Exam# [id number] Ordering Dr: Letitia Quevedo MD PROCEDURE: SPINE THORACIC (ROUTINE) 10/14/2024 REASON FOR EXAM: THORACIC MYELOPATHY TECHNIQUE: SPINE THORACIC (ROUTINE) Multiplanar and multisequence images were obtained. FINDINGS: There are chronic upper thoracic compression deformities. These are present at T4, T5 and T6 without marrow abnormality. No acute compressive deformity is seen. There has been dorsal decompression extending from T4-T6 previously. 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 The conus is unremarkable. There is no marrow edema or paravertebral mass lesion. There is no current evidence of cord compression. MRI/Spine Thoracic (Routine) IMPRESSION: Prior compression deformities and dorsal decompression. Cystic myelomalacia begins at T4 and extends inferiorly to T9 Reading Location: [facility] CC: Dr. Edmundo Quevedo MD; Dr. Brian Cardona MD ~ Dental Financial Coordinator: Signed [facility] Spine Thoracic (Routine)on 0 10-14-2024 Spine Thoracic (Routine) Normal [facility] Urine Cultureon 09-30-2024 URC Normal [facility] Comment on above: Performed By: #### M 100.2200, L4.2010 ####[facility] [address] [place], [address] Bilirubin Test strip Ql (U)O rdered By: RIKKI CASAS on 09-28-2024 Bilirubin Ql (U) Negative Negative [facility] Ketones Test strip Ql (U)Ord ered By: RIKKI CASAS on 09-28-2024 Ketones Ql (U) Negative Negative [facility] Nitrite Test strip Ql (U)Ord ered By: RIKKI CASAS on 09-28-2024 Nitrite Ql (U) Negative Negative [facility] Protein Test strip Ql (U)Ord ered By: RIKKI CASAS on 09-28-2024 Protein Ql (U) 30 mg/dl High Negative [facility] Urinalysis, Routine (Dipstic k)on 09-28-2024 BILIRUBIN URINE Negative Normal Negative [facility] Comment on above: Order Comment: LISA TER SPECIMEN Performed By: #### M 100.2200, L400.2010 ####[facility] [address] [place], [address] Clarity (U) Sl. Cloudy Normal Clear [facility] Comment on above: Order Comment: LISA TER SPECIMEN Performed By: #### M 100.2200, L400.2010 ####[facility] [address] [place], [address] Color (U) Yellow Normal Yellow [facility] Comment on above: Order Comment: LISA TER SPECIMEN Performed By: #### M , L4 ####[facility] [address] [place], [address] GLUCOSE, UR Normal Normal Normal [facility] Comment on above: Order Comment: LISA TER SPECIMEN Performed By: #### M , L4 ####[facility] [address] [place], [address] KETONE UR Negative Normal Negative [facility] Comment on above: Order Comment: LISA TER SPECIMEN Performed By: #### M , L4 ####[facility] [address] [place], [address] LEUK ESTERASE 100 /ul Abnormal Negative [facility] Comment on above: Order Comment: LISA TER SPECIMEN Performed By: #### M , L4 ####[facility] [address] [place], [address] Nitrite Ql (U) Negative Normal Negative [facility] Comment on above: Order Comment: LISA TER SPECIMEN Performed By: #### M L4 ####[facility] [address] [place], [address] OCCULT BLOOD-UR 25 /ul Abnormal Negative [facility] Comment on above: Order Comment: LISA TER SPECIMEN Performed By: #### M , L4 ####[facility] [address] [place], [address] pH UR 6.0 Normal 5.0 - 8.0 [facility] Comment on above: Order Comment: LISA TER SPECIMEN Performed By: #### M , L4 ####[facility] [address] [place], [address] PROT DIPSTX 30 mg/dl Abnormal Negative [facility] Comment on above: Order Comment: LISA TER SPECIMEN Performed By: #### M 100.2200, L400.2010 ####[facility] [address] [place], [address] SP.GR. DIPSTX 1.015 Normal 1.002-1.030 [facility] Comment on above: Order Comment: LISA TER SPECIMEN Performed By: #### M 100.2200, L400.2010 ####[facility] [address] [place], [address] UROBILI Normal Normal Normal [facility] Comment on above: Order Comment: LISA TER SPECIMEN Performed By: #### M 100.2200, L400.2010 ####[facility] [address] [place], [address] Urine clarityOrdered By: MARINA CASAS on 09-28-2024 Clarity (U) Sl. Cloudy Clear [facility] Urine color determinationOrd ered By: RIKKI CASAS on 09-28-2024 Color (U) Yellow Yellow [facility] Urine cultureOrdered By: MARINA CASAS on 09-28-2024 Bacteria identified Cx Nom (U) Klebsiella pneumoniae sp pneum Abnormal [facility] Urine glucose detectionOrder ed By: RIKKI CASAS on 09-28-2024 Glucose Ql (U) Normal mg/dl Normal [facility] Urine leukocyte esterase det ection by dipstickOrdered By: RIKKI CASAS on 09-28-2024 Leukocyte esterase Test strip Ql (U) 100 /ul High Negative [facility] Urine pHOrdered By: RIKKI DOMINGUEZ on 09-28-2024 pH (U) 6.0 [pH] 5.0 - 8.0 [facility] Urine specific gravity measu rementOrdered By: RIKKI CASAS on 09-28-2024 Specific gravity (U) [Rel density] 1.015 1.002-1.030 [facility] Urine urobilinogen measureme ntOrdered By: RIKKI CASAS on 09-28-2024 Urobilinogen Ql (U) Normal mg/dl Normal [facility] 36on 09-27-2024 36 Call placed to Jennifer to [...] letter can be sent. Fax number given: [phone] attention Jennifer. Jennifer asked if a PRN order for nurse visit could also be added so she can go back for the urine to send out. Will have this updated in the letter and sent via fax. [facility] 36 S: Jennifer nurse from [facility] spoke with [facility] nurse regarding urinary symptoms and needs order [...] R: Please call homecare nurse, Jennifer, at [phone] with verbal orders for catheter changes and for a UA, C&S, or with other recommendations. No further needs at this time. Reason for Disposition Bad or foul-smelling urine Protocols used: Urinary Swdihlep-VRVSA-IF [facility] 36 Call placed to Jennifer bad phone connection unable to understand call . Call disconnected [facility] 36on 09-26-2024 36 Name of caller: Jennifer Contact phone number: [phone] Relationship to Patient: [facility] Provider: Dr. Casas Practice: Urology Chief Complaint/Reason [...] hours to return their call: Yes Normal [facility] Orthopedic Visit Reporton Orthopedic Visit Report Normal [facility] 12 Lead EKGon 08-07-2024 12 Lead EKG Normal [facility] Absolute lymphocyte countOrd ered By: Kit Harris on 08-07-2024 Lymphocytes Auto (Unsp spec) [#/Vol] 1.72 10*3/uL 0.83-4.51 [facility] Absolute neutrophil countOrd ered By: Kit Harris on 08-07-2024 Neutrophils (Bld) [#/Vol] 6.3 10*3/uL 2.0-7.7 [facility] Anion gap in Serum or Plasma Ordered By: Kit Harris on 08-07-2024 Anion gap [Moles/Vol] 10 mmol/L 5-15 [facility] Automated lymphocyte count a s percentage of total leukocytesOrdered By: Kit Harris on 08-07-2024 Lymphocytes/100 WBC Auto (Unsp spec) 17.9 % Low 19-41 [facility] BUN/creatinine ratioOrdered By: Kitalee Harris on 08-07-2024 Urea nitrogen/Creatinine [Mass ratio] 14.8 mg/mg 10-20 [facility] Basophil percentageOrdered B y: Kit Harris on 08-07-2024 Basophils/100 WBC (Bld) 0.9 % 0-1 [facility] Bilirubin Test strip Ql (U)O rdered By: Kit Harris on 08-07-2024 Bilirubin Ql (U) Negative Negative [facility] Bilirubin, totalOrdered By: Kit Harris on 08-07-2024 Bilirubin [Mass/Vol] mg/dL 0.00-1.30 [facility] Brain/Head without Contrasto n 08-07-2024 Brain/Head without Contrast Normal [facility] CBC W/Diff, Automatedon 07-28 Absolute Lymph 1.72 X10 3/uL Normal 0.83-4.51 [facility] Comment on above: Performed By: #### L 500.4050, L100.0100 ####[facility] [address] [place], [address] Absolute Neut 6.3 X10 3/uL Normal 2.0-7.7 [facility] Comment on above: Performed By: #### L 500.4050, L100.0100 ####[facility] [address] [place], [address] Basophils/100 WBC (Bld) 0.9 % Normal 0-1 [facility] Comment on above: Performed By: #### L 500.4050, L100.0100 ####[facility] [address] [place], [address] Eosinophils/100 WBC (Bld) 4.2 % Normal 0-5 [facility] Comment on above: Performed By: #### L 500.4050, L100.0100 ####[facility] [address] [place], [address] Erythrocyte distribution width (RBC) [Ratio] 16.8 % High 11.6-14.6 [facility] Comment on above: Performed By: #### L 500.4050, L100.0100 ####[facility] [address] [place], [address] Hematocrit (Bld) [Volume fraction] 35.4 % Low 40-54 [facility] Comment on above: Performed By: #### L 500.4050, L100.0100 ####[facility] [address] [place], [address] Hemoglobin (Bld) [Mass/Vol] 11.4 g/dL Low 13.0-16.5 [facility] Comment on above: Performed By: #### L 500.4050, L100.0100 ####[facility] [address] [place], [address] IG% 1.700 High 0.0-0.9 [facility] Comment on above: Result Comment: IG% - Immature Granulocytes (promyelocytes, myelocytes andmetamyelocytes) > 1% indicates that a LEFT SHIFT is Present. Performed By: #### L 500.4050, L100.0100 ####[facility] [address] [place], [address] Lymphocytes/100 WBC (Bld) 17.9 % Low 19-41 [facility] Comment on above: Performed By: #### L 500.4050, L100.0100 ####[facility] [address] [place], [address] MCH (RBC) [Entitic mass] 28.9 pg Normal 27.0-32.0 [facility] Comment on above: Performed By: #### L 500.4050, L100.0100 ####[facility] [address] [place], [address] MCHC (RBC) [Mass/Vol] 32.2 g/dL Normal 32-36 [facility] Comment on above: Performed By: #### L 500.4050, L100.0100 ####[facility] [address] [place], [address] MCV (RBC) [Entitic vol] 89.6 fL Normal 80-94 [facility] Comment on above: Performed By: #### L 500.4050, L100.0100 ####[facility] [address] [place], [address] Monocytes/100 WBC (Bld) 9.5 % Normal 0-10 [facility] Comment on above: Performed By: #### L 500.4050, L100.0100 ####[facility] [address] [place], [address] Neutrophils/100 WBC (Bld) 65.8 % Normal 47-70 [facility] Comment on above: Performed By: #### L 500.4050, L100.0100 ####[facility] [address] [place], [address] Nucleated RBC (Bld) [#/Vol] 0 10*3/uL Normal 0-5 [facility] Comment on above: Performed By: #### L 500.4050, L100.0100 ####[facility] [address] [place], [address] Platelet mean volume (Bld) [Entitic vol] 10.1 fL Normal 6.2-12.0 [facility] Comment on above: Performed By: #### L 500.4050, L100.0100 ####[facility] [address] [place], [address] Platelets (Bld) [#/Vol] 331 10*3/uL Normal 150-450 [facility] Comment on above: Performed By: #### L 500.4050, L100.0100 ####[facility] [address] [place], [address] RBC (Bld) [#/Vol] 3.95 10*6/uL Low 4.6-6.2 [facility] Comment on above: Performed By: #### L 500.4050, L100.0100 ####[facility] [address] [place], [address] RDW SD 55.9 fl High 35.1-43.9 [facility] Comment on above: Performed By: #### L 500.4050, L100.0100 ####[facility] [address] [place], [address] WBC (Bld) [#/Vol] 9.6 10*3/uL Normal 4.4-11.0 [facility] Comment on above: Performed By: #### L 500.4050, L100.0100 ####[facility] [address] [place], [address] Carbon dioxide, total [Moles /volume] in Central venous bloodOrdered By: Kit Harris on 08-07-2024 CO2 [Moles/Vol] 26.0 mmol/L 21.0-32.0 [facility] Chest 1 View (Portable)on Chest 1 View (Portable) Normal [facility] Chloride assayOrdered By: Janie Harris on 08-07-2024 Chloride [Moles/Vol] 106 mmol/L 98-108 [facility] Comprehensive Metabolic Prof ilon 08-07-2024 Albumin [Mass/Vol] 3.1 g/dL Low 3.4-4.8 [facility] Comment on above: Performed By: #### L 500.4050, L100.0100 ####[facility] [address] [place], [address] Albumin/Globulin [Mass ratio] 0.8 {ratio} Low 0.9-2.4 [facility] Comment on above: Performed By: #### L 500.4050, L100.0100 ####[facility] [address] [place], [address] ALK PHOS 109 U/L Normal 40-129 [facility] Comment on above: Performed By: #### L 500.4050, L100.0100 ####[facility] [address] [place], [address] ALT [Catalytic activity/Vol] 21 U/L Normal <=46 [facility] Comment on above: Performed By: #### L 500.4050, L100.0100 ####[facility] [address] [place], [address] AST [Catalytic activity/Vol] 12 U/L Normal <=37 [facility] Comment on above: Performed By: #### L 500.4050, L100.0100 ####[facility] [address] [place], [address] BUN/CRE 14.8 RATIO Normal 10-20 [facility] Comment on above: Performed By: #### L 500.4050, L100.0100 ####[facility] [address] [place], [address] Calcium [Mass/Vol] 9.2 mg/dL Normal 7.6-11.0 [facility] Comment on above: Performed By: #### L 500.4050, L100.0100 ####[facility] [address] [place], [address] Chloride [Moles/Vol] 106 mmol/L Normal 98-108 [facility] Comment on above: Performed By: #### L 500.4050, L100.0100 ####[facility] [address] [place], [address] CO2 [Moles/Vol] 26.0 mmol/L Normal 21.0-32.0 [facility] Comment on above: Performed By: #### L 500.4050, L100.0100 ####[facility] [address] [place], [address] Creatinine [Mass/Vol] 1.33 mg/dL High 0.70-1.20 [facility] Comment on above: Performed By: #### L 500.4050, L100.0100 ####[facility] [address] [place], [address] ECRCL 59.92 ml/min Normal 50-250 [facility] Comment on above: Performed By: #### L 500.4050, L100.0100 ####[facility] [address] [place], [address] GAP 10 Normal 5-15 [facility] Comment on above: Performed By: #### L 500.4050, L100.0100 ####[facility] [address] [place], [address] GFR/1.73 sq M.predicted among non-blacks MDRD (S/P/Bld) [Vol rate/Area] 59 mL/min/{1.73_m2} Low >60 [facility] Comment on above: Result Comment: mL/m in/1.73m2 CKD-EPI Creatinine Equation (2020) Performed By: #### L 500.4050, L100.0100 ####[facility] [address] [place], [address] Globulin (S) [Mass/Vol] 3.7 g/dL Normal 2.2-4.2 [facility] Comment on above: Performed By: #### L 500.4050, L100.0100 ####[facility] [address] [place], [address] Glucose [Mass/Vol] 139 mg/dL High 70-99 [facility] Comment on above: Performed By: #### L 500.4050, L100.0100 ####[facility] [address] [place], [address] Potassium [Moles/Vol] 3.6 mmol/L Normal 3.3-5.1 [facility] Comment on above: Performed By: #### L 500.4050, L100.0100 ####[facility] [address] [place], [address] Sodium [Moles/Vol] 142 mmol/L Normal 133-145 [facility] Comment on above: Performed By: #### L 500.4050, L100.0100 ####[facility] [address] [place], [address] T BILI < 0.15 Normal 0.00-1.30 [facility] Comment on above: Performed By: #### L 500.4050, L100.0100 ####[facility] [address] [place], [address] T PROT 6.8 g/dL Normal 5.9-8.4 [facility] Comment on above: Performed By: #### L 500.4050, L100.0100 ####[facility] [address] [place], [address] Urea nitrogen [Mass/Vol] 20 mg/dL High 4-19 [facility] Comment on above: Performed By: #### L 500.4050, L100.0100 ####[facility] [address] [place], [place], [address] Emergency Department Summary on 08-07-2024 Emergency Department Summary Normal [facility] Eosinophil percentageOrdered By: Kit Harris on 08-07-2024 Eosinophils/100 WBC (Bld) 4.2 % 0-5 [facility] Erythrocyte distribution wid th ratioOrdered By: Kit Harris on 08-07-2024 Erythrocyte distribution width (RBC) [Ratio] 16.8 % High 11.6-14.6 [facility] Erythrocyte distribution wid th standard deviationOrdered By: Kit Harris on 08-07-2024 Erythrocyte distribution width (RBC) [Ratio] 55.9 fl High 35.1-43.9 [facility] Glomerular filtration rate ( GFR) estimation/1.73 sq m using serum, plasma, or whole bOrdered By: Kit Harris on 08-07-2024 GFR/1.73 sq M.predicted among non-blacks MDRD (S/P/Bld) [Vol rate/Area] 59 mL/min/{1.73_m2} Low >60 [facility] Comment on above: mL/min/1.73m2 CKD-EP I Creatinine Equation (2020) Hematocrit Auto (Bld) [Volum e fraction]Ordered By: Kit Harris on 08-07-2024 Hematocrit (Bld) [Volume fraction] 35.4 % Low 40-54 [facility] Hemoglobin measurementOrdere d By: Kit Harris on 08-07-2024 Hemoglobin (Bld) [Mass/Vol] 11.4 g/dL Low 13.0-16.5 [facility] Immature granulocytes/100 WB C Auto (Bld)Ordered By: Kit Harris on 08-07-2024 Immature granulocytes/100 WBC (Bld) 1.700 % High 0.0-0.9 [facility] Comment on above: IG% - Immature Granu locytes (promyelocytes, myelocytes and metamyelocytes) > 1% indicates that a LEFT SHIFT is Present. Ketones Test strip Ql (U)Ord ered By: Kit Harris on 08-07-2024 Ketones Ql (U) Negative Negative [facility] L499.0042on 08-07-2024 Trop T High Sen 21 ng/L Normal <=22 [facility] Comment on above: Performed By: #### L 499.0042 ####[facility] [address] [place], [address] L499.0043on 08-07-2024 Trop T High Sen Normal <=22 [facility] Comment on above: Result Comment: Canc elled via OM: Order cancelled - Patient discharged Performed By: #### L 499.0043 ####[facility] [address] [place], [address] L501.4021on 08-07-2024 Trop T High Sen 22 ng/L Normal <=22 [facility] Comment on above: Performed By: #### L 483.4021 ####[facility] [address] [place], [address] Laboratory - Chemistry and C hemistry - challengeOrdered By: Kit Harris on 08-07-2024 AST [Catalytic activity/Vol] 12 U/L <38 [facility] MCV (mean corpuscular volume ) determinationOrdered By: Kit Harris on 08-07-2024 MCV (RBC) [Entitic vol] 89.6 fL 80-94 [facility] Mean corpuscular hemoglobin (MCH) determinationOrdered By: Kit Harris on 08-07-2024 MCH (RBC) [Entitic mass] 28.9 pg 27.0-32.0 [facility] Mean corpuscular hemoglobin concentration (MCHC) determinationOrdered By: Kit Harris on 08-07-2024 MCHC (RBC) [Mass/Vol] 32.2 g/dL 32-36 [facility] Mean platelet volume determi nationOrdered By: Kit Harris on 08-07-2024 Platelet mean volume (Bld) [Entitic vol] 10.1 fL 6.2-12.0 [facility] Microscopic analysis of urin e for red blood cells (RBC)Ordered By: Kit Harris on 08-07-2024 Microscopic analysis of urine for red blood cells (RBC) 0 SEEN /hpf 0-5 [facility] Monocyte percentageOrdered B y: Kit Harris on 08-07-2024 Monocytes/100 WBC (Bld) 9.5 % 0-10 [facility] Mucus LM Ql (Urine sed)Order ed By: Kit Harris on 08-07-2024 Mucus Ql (Urine sed) 0 SEEN /hpf [facility] Neutrophil percentageOrdered By: Kit Harris on 08-07-2024 Neutrophils/100 WBC (Bld) 65.8 % 47-70 [facility] Nitrite Test strip Ql (U)Ord ered By: Kit Harris on 08-07-2024 Nitrite Ql (U) Negative Negative [facility] No Panel InformationOrdered By: Kit Harris on 08-07-2024 12 U/L <38 [facility] Nucleated red blood cell per centageOrdered By: Kit Harris on 08-07-2024 Nucleated RBC/100 WBC (Bld) [Ratio] 0 % 0-5 [facility] Platelet countOrdered By: Janie Harris on 08-07-2024 Platelets (Bld) [#/Vol] 331 10*3/uL 150-450 [facility] Potassium measurement (mass/ volume)Ordered By: iKt Harris on 08-07-2024 Potassium (Unsp spec) [Mass/Vol] 3.6 mmol/L 3.3-5.1 [facility] Protein Test strip Ql (U)Ord ered By: Kit Harris on 08-07-2024 Protein Ql (U) 15 mg/dl High Negative [facility] RBC Auto (Bld) [#/Vol]Ordere d By: Kit Harris on 08-07-2024 RBC (Bld) [#/Vol] 3.95 10*6/uL Low 4.6-6.2 [facility] Serum creatinine measurement (mass/volume)Ordered By: Kit Harris on 08-07-2024 Creatinine [Mass/Vol] 1.33 mg/dL High 0.70-1.20 [facility] Serum globulin measurementOr dered By: Kit Harris on 08-07-2024 Globulin (S) [Mass/Vol] 3.7 g/dL 2.2-4.2 [facility] Serum glucose measurement (m ass/volume)Ordered By: Kit Harris on 08-07-2024 Glucose [Mass/Vol] 139 mg/dL High 70-99 [facility] Serum or plasma alanine orozco otransferase (ALT) measurementOrdered By: Kit Harris on 08-07-2024 ALT [Catalytic activity/Vol] 21 U/L <47 [facility] Serum or plasma albumin marlyn urement (mass/volume)Ordered By: Kit Harris on 08-07-2024 Albumin [Mass/Vol] 3.1 g/dL Low 3.4-4.8 [facility] Serum or plasma albumin/glob ulin mass ratioOrdered By: Kit Harris on 08-07-2024 Albumin/Globulin [Mass ratio] 0.8 {ratio} Low 0.9-2.4 [facility] Serum or plasma alkaline marisol sphatase measurementOrdered By: Kit Harris on 08-07-2024 ALP [Catalytic activity/Vol] 109 U/L 40-129 [facility] Serum or plasma calcium marlyn urement (mass/volume)Ordered By: Kit Harris on 08-07-2024 Calcium [Mass/Vol] 9.2 mg/dL 7.6-11.0 [facility] Serum or plasma urea nitroge n measurement (mass/volume)Ordered By: Kit Harris on 08-07-2024 Urea nitrogen [Mass/Vol] 20 mg/dL High 4-19 [facility] Sodium levelOrdered By: Micheal Hraris on 08-07-2024 Sodium [Moles/Vol] 142 mmol/L 133-145 [facility] Squamous epithelial cells de tection in urine sediment by light microscopyOrdered By: Kit Harris on 08-07-2024 Epithelial cells.squamous LM Ql (Urine sed) 0 SEEN /hpf 0-5 [facility] Total proteinOrdered By: Kenneth louisecolten Steven on 08-07-2024 Protein [Mass/Vol] 6.8 g/dL 5.9-8.4 [facility] Troponin T.cardiac [Mass/vol ume] in Serum or Plasma by High sensitivity methodOrdered By: Kit Harris on 08-07-2024 Troponin T.cardiac High sensitivity method [Mass/Vol] 21 ng/L <22 [facility] Troponin T.cardiac High sensitivity method [Mass/Vol] 22 ng/L <22 [facility] Urinalysis, Completeon 08-07 WBC 0-5 SEEN Normal 0-5 [facility] Comment on above: Order Comment: LISA TER SPECIMEN Performed By: #### L 400.0001 ####[facility] [address] [place], [address] BACTERIA 0 SEEN Normal None Seen [facility] Comment on above: Order Comment: LISA TER SPECIMEN Performed By: #### L 400.0001 ####[facility] [address] [place], [address] EPI,SQUAMOUS 0 SEEN Normal 0-5 [facility] Comment on above: Order Comment: LISA TER SPECIMEN Performed By: #### L 400.0001 ####[facility] [address] [place], [address] Mucus Ql (Urine sed) 0 SEEN Normal [facility] Comment on above: Order Comment: LISA TER SPECIMEN Performed By: #### L 400.0001 ####[facility] [address] [place], [address] RBC 0 SEEN Normal 0-5 [facility] Comment on above: Order Comment: LISA TER SPECIMEN Performed By: #### L 400.0001 ####[facility] [address] [place], [address] Urine clarityOrdered By: Kenneth Harris on 08-07-2024 Clarity (U) Clear Clear [facility] Urine color determinationOrd ered By: Kit Harris on 08-07-2024 Color (U) Yellow Yellow [facility] Urine glucose detectionOrder ed By: Kit Harris on 08-07-2024 Glucose Ql (U) Normal mg/dl Normal [facility] Urine leukocyte esterase det ection by dipstickOrdered By: Kit Harris on 08-07-2024 Leukocyte esterase Test strip Ql (U) 25 /ul High Negative [facility] Urine pHOrdered By: Kit Harris on 08-07-2024 pH (U) 6.5 [pH] 5.0 - 8.0 [facility] Urine sediment bacteria coun t by microscopy (number/high power field)Ordered By: Kit Harris on 08-07-2024 Bacteria LM.HPF (Urine sed) [#/Area] 0 /[HPF] None Seen [facility] Urine specific gravity measu rementOrdered By: Kit Harris on 08-07-2024 Specific gravity (U) [Rel density] 1.010 1.002-1.030 [facility] Urine urobilinogen measureme ntOrdered By: Kit Harris on 08-07-2024 Urobilinogen Ql (U) Normal mg/dl Normal [facility] White blood cell (WBC) count Ordered By: Kit Harris on 08-07-2024 WBC (Bld) [#/Vol] 9.6 10*3/uL 4.4-11.0 [facility] White blood cell countOrdere d By: Kit Harris on 08-07-2024 White blood cell count 0-5 SEEN /hpf 0-5 [facility] Culture, Blood (WB)on 2024 CUB Blood cultures x2, from two different sites No growth in 5 days. Normal [facility] Comment on above: Performed By: #### M 200.1000, L100.0100, L300.4310, L300.3900, L503.6005, L500.4050 ####[facility] [address] [place], [address] Performed By: #### M 200.1000 ####[facility] [address] [place], [address] Absolute lymphocyte countOrd ered By: Hebert Saavedra on 08-02-2024 Lymphocytes Auto (Unsp spec) [#/Vol] 1.13 10*3/uL 0.83-4.51 [facility] Absolute neutrophil countOrd ered By: [facility] on 08-02-2024 Neutrophils (Bld) [#/Vol] 4.7 10*3/uL 2.0-7.7 [facility] Anion gap in Serum or Plasma Ordered By: Hebert Saavedra on 08-02-2024 Anion gap [Moles/Vol] 10 mmol/L 5-15 [facility] Automated lymphocyte count a s percentage of total leukocytesOrdered By: Hebert Saavedra on 08-02-2024 Lymphocytes/100 WBC Auto (Unsp spec) 15.1 % Low 19-41 [facility] BUN/creatinine ratioOrdered By: [facility] on 08-02-2024 Urea nitrogen/Creatinine [Mass ratio] 21.3 mg/mg High 01-16 [facility] Base excess Calc (BldV) [Mol es/Vol]Ordered By: Hebert Saavedra on 08-02-2024 Venous Blood Base Excess 10 mmol/L High -1.0-3.5 [facility] Basic Metabolic Profile (BMP )on 08-02-2024 BUN/CRE 21.3 RATIO High - [facility] Comment on above: Performed By: #### L 500.2500, L100.0100 ####[facility] [address] [place], [address] Calcium [Mass/Vol] 8.9 mg/dL Normal 7.6-11.0 [facility] Comment on above: Performed By: #### L 500.2500, L100.0100 ####[facility] [address] [place], [address] Chloride [Moles/Vol] 113 mmol/L High 98-108 [facility] Comment on above: Performed By: #### L 500.2500, L100.0100 ####[facility] [address] [place], [address] CO2 [Moles/Vol] 21.3 mmol/L Normal 21.0-32.0 [facility] Comment on above: Performed By: #### L 500.2500, L100.0100 ####[facility] [address] [place], [address] Creatinine [Mass/Vol] 1.10 mg/dL Normal 0.70-1.20 [facility] Comment on above: Performed By: #### L 500.2500, L100.0100 ####[facility] [address] [place], [address] ECRCL 73.63 ml/min Normal 50-250 [facility] Comment on above: Performed By: #### L 500.2500, L100.0100 ####[facility] [address] [place], [address] GAP 10 Normal 5-15 [facility] Comment on above: Performed By: #### L 500.2500, L100.0100 ####[facility] [address] [place], [address] GFR/1.73 sq M.predicted among non-blacks MDRD (S/P/Bld) [Vol rate/Area] 74 mL/min/{1.73_m2} Normal >60 [facility] Comment on above: Result Comment: mL/m in/1.73m2 CKD-EPI Creatinine Equation (2020) Performed By: #### L 500.2500, L100.0100 ####[facility] [address] [place], [address] Glucose [Mass/Vol] 103 mg/dL High 70-99 [facility] Comment on above: Performed By: #### L 500.2500, L100.0100 ####[facility] [address] [place], [address] Potassium [Moles/Vol] 3.6 mmol/L Normal 3.3-5.1 [facility] Comment on above: Performed By: #### L 500.2500, L100.0100 ####[facility] [address] [place], [address] Sodium [Moles/Vol] 144 mmol/L Normal 133-145 [facility] Comment on above: Performed By: #### L 500.2500, L100.0100 ####[facility] [address] [place], [address] Urea nitrogen [Mass/Vol] 23 mg/dL High 4-19 [facility] Comment on above: Performed By: #### L 500.2500, L100.0100 ####[facility] [address] [place], [address] BUN Normal 4-19 [facility] Comment on above: Result Comment: Canc elled via OM: Order cancelled - Patient discharged Performed By: #### L 500.2500, L100.0100 ####[facility] [address] [place], [address] BUN/CRE Normal 10-20 [facility] Comment on above: Result Comment: Canc elled via OM: Order cancelled - Patient discharged Performed By: #### L 500.2500, L100.0100 ####[facility] [address] [place], [address] Calcium Normal 7.6-11.0 [facility] Comment on above: Result Comment: Canc elled via OM: Order cancelled - Patient discharged Performed By: #### L 500.2500, L100.0100 ####[facility] [address] [place], [address] CL Normal 98-108 [facility] Comment on above: Result Comment: Canc elled via OM: Order cancelled - Patient discharged Performed By: #### L 500.2500, L100.0100 ####[facility] [address] [place], [address] CO2 Normal 21.0-32.0 [facility] Comment on above: Result Comment: Canc elled via OM: Order cancelled - Patient discharged Performed By: #### L 500.2500, L100.0100 ####[facility] [address] [place], [address] CREAT,SERUM Normal 0.70-1.20 [facility] Comment on above: Result Comment: Canc elled via OM: Order cancelled - Patient discharged Performed By: #### L 500.2500, L100.0100 ####[facility] [address] [place], [address] eGFR Normal >60 [facility] Comment on above: Result Comment: Canc elled via OM: Order cancelled - Patient discharged Performed By: #### L 500.2500, L100.0100 ####[facility] [address] [place], [address] GAP Normal 5-15 [facility] Comment on above: Result Comment: Canc elled via OM: Order cancelled - Patient discharged Performed By: #### L 500.2500, L100.0100 ####[facility] [address] [place], [address] GLU Normal 70-99 [facility] Comment on above: Result Comment: Canc elled via OM: Order cancelled - Patient discharged Performed By: #### L 500.2500, L100.0100 ####[facility] [address] [place], [address] Potassium Normal 3.3-5.1 [facility] Comment on above: Result Comment: Canc elled via OM: Order cancelled - Patient discharged Performed By: #### L 500.2500, L100.0100 ####[facility] [address] [place], [address] Basic Metabolic Profile (BMP) Normal 133-145 [facility] Comment on above: Result Comment: Canc elled via OM: Order cancelled - Patient discharged Performed By: #### L 500.2500, L100.0100 ####[facility] [address] [place], [address] Basophil percentageOrdered B y: Hebert Saavedra on 08-02-2024 Basophils/100 WBC (Bld) 0.4 % 0-1 [facility] Bilirubin Test strip Ql (U)O rdered By: Hebert Saavedra on 08-02-2024 Bilirubin Ql (U) Negative Negative [facility] CBC W/Diff, Automatedon Absolute Lymph 1.13 X10 3/uL Normal 0.83-4.51 [facility] Comment on above: Performed By: #### L 500.2500, L100.0100 ####[facility] [address] [place], [address] Absolute Neut 4.7 X10 3/uL Normal 2.0-7.7 [facility] Comment on above: Performed By: #### L 500.2500, L100.0100 ####[facility] [address] [place], [address] Basophils/100 WBC (Bld) 0.4 % Normal 0-1 [facility] Comment on above: Performed By: #### L 500.2500, L100.0100 ####[facility] [address] [place], [address] Eosinophils/100 WBC (Bld) 6.6 % High 0-5 [facility] Comment on above: Performed By: #### L 500.2500, L100.0100 ####[facility] [address] [place], [address] Erythrocyte distribution width (RBC) [Ratio] 17.7 % High 11.6-14.6 [facility] Comment on above: Performed By: #### L 500.2500, L100.0100 ####[facility] [address] [place], [address] Hematocrit (Bld) [Volume fraction] 33.7 % Low 40-54 [facility] Comment on above: Performed By: #### L 500.2500, L100.0100 ####[facility] [address] [place], [address] Hemoglobin (Bld) [Mass/Vol] 10.8 g/dL Low 13.0-16.5 [facility] Comment on above: Performed By: #### L 500.2500, L100.0100 ####[facility] [address] [place], [address] IG% 0.500 Normal 0.0-0.9 [facility] Comment on above: Result Comment: IG% - Immature Granulocytes (promyelocytes, myelocytes andmetamyelocytes) > 1% indicates that a LEFT SHIFT is Present. Performed By: #### L 500.2500, L100.0100 ####[facility] [address] [place], [address] Lymphocytes/100 WBC (Bld) 15.1 % Low 19-41 [facility] Comment on above: Performed By: #### L 500.2500, L100.0100 ####[facility] [address] [place], [address] MCH (RBC) [Entitic mass] 28.6 pg Normal 27.0-32.0 [facility] Comment on above: Performed By: #### L 500.2500, L100.0100 ####[facility] [address] [place], [address] MCHC (RBC) [Mass/Vol] 32.0 g/dL Normal 32-36 [facility] Comment on above: Performed By: #### L 500.2500, L100.0100 ####[facility] [address] [place], [address] MCV (RBC) [Entitic vol] 89.4 fL Normal 80-94 [facility] Comment on above: Performed By: #### L 500.2500, L100.0100 ####[facility] [address] [place], [address] Monocytes/100 WBC (Bld) 15.1 % High 0-10 [facility] Comment on above: Performed By: #### L 500.2500, L100.0100 ####[facility] [address] [place], [address] Neutrophils/100 WBC (Bld) 62.3 % Normal 47-70 [facility] Comment on above: Performed By: #### L 500.2500, L100.0100 ####[facility] [address] [place], [address] Nucleated RBC (Bld) [#/Vol] 0 10*3/uL Normal 0-5 [facility] Comment on above: Performed By: #### L 500.2500, L100.0100 ####[facility] [address] [place], [address] Platelet mean volume (Bld) [Entitic vol] 9.8 fL Normal 6.2-12.0 [facility] Comment on above: Performed By: #### L 500.2500, L100.0100 ####[facility] [address] [place], [address] Platelets (Bld) [#/Vol] 237 10*3/uL Normal 150-450 [facility] Comment on above: Performed By: #### L 500.2500, L100.0100 ####[facility] [address] [place], [address] RBC (Bld) [#/Vol] 3.77 10*6/uL Low 4.6-6.2 [facility] Comment on above: Performed By: #### L 500.2500, L100.0100 ####[facility] [address] [place], [address] RDW SD 57.7 fl High 35.1-43.9 [facility] Comment on above: Performed By: #### L 500.2500, L100.0100 ####[facility] [address] [place], [address] WBC (Bld) [#/Vol] 7.5 10*3/uL Normal 4.4-11.0 [facility] Comment on above: Performed By: #### L 500.2500, L100.0100 ####[facility] [address] [place], [address] Absolute Neut Normal 2.0-7.7 [facility] Comment on above: Result Comment: Canc elled via OM: Order cancelled - Patient discharged Performed By: #### L 500.2500, L100.0100 ####[facility] [address] [place], [address] HCT Normal 40-54 [facility] Comment on above: Result Comment: Canc elled via OM: Order cancelled - Patient discharged Performed By: #### L 500.2500, L100.0100 ####[facility] [address] [place], [address] HGB Normal 13.0-16.5 [facility] Comment on above: Result Comment: Canc elled via OM: Order cancelled - Patient discharged Performed By: #### L 500.2500, L100.0100 ####[facility] [address] [place], [address] MCH Normal 27.0-32.0 [facility] Comment on above: Result Comment: Canc elled via OM: Order cancelled - Patient discharged Performed By: #### L 500.2500, L100.0100 ####[facility] [address] [place], [address] MCHC Normal 32-36 [facility] Comment on above: Result Comment: Canc elled via OM: Order cancelled - Patient discharged Performed By: #### L 500.2500, L100.0100 ####[facility] [address] [place], [address] MCV Normal 80-94 [facility] Comment on above: Result Comment: Canc elled via OM: Order cancelled - Patient discharged Performed By: #### L 500.2500, L100.0100 ####[facility] [address] [place], [address] NEUT% Normal 47-70 [facility] Comment on above: Result Comment: Canc elled via OM: Order cancelled - Patient discharged Performed By: #### L 500.2500, L100.0100 ####[facility] [address] [place], [address] PLT Normal 150-450 [facility] Comment on above: Result Comment: Canc elled via OM: Order cancelled - Patient discharged Performed By: #### L 500.2500, L100.0100 ####[facility] [address] [place], [address] RBC Normal 4.6-6.2 [facility] Comment on above: Result Comment: Canc elled via OM: Order cancelled - Patient discharged Performed By: #### L 500.2500, L100.0100 ####[facility] [address] [place], [address] RDW CV Normal 11.6-14.6 [facility] Comment on above: Result Comment: Canc elled via OM: Order cancelled - Patient discharged Performed By: #### L 500.2500, L100.0100 ####[facility] [address] [place], [address] RDW SD Normal 35.1-43.9 [facility] Comment on above: Result Comment: Canc elled via OM: Order cancelled - Patient discharged Performed By: #### L 500.2500, L100.0100 ####[facility] [address] [place], [address] WBC Normal 4.4-11.0 [facility] Comment on above: Result Comment: Canc elled via OM: Order cancelled - Patient discharged Performed By: #### L 500.2500, L100.0100 ####[facility] [address] [place], [address] CO2 (BldV) [Moles/Vol]Ordere d By: Hebert Saavedra on 08-02-2024 CO2 [Moles/Vol] 33 mmol/L 23-33 [facility] CO2 (BldV) [Partial pressure ]Ordered By: Hebert Saavedra on 08-02-2024 Bed Mix Venous Bld PCO2 at Pat Temp 37.5 mmHg Low 41-51 [facility] Carbon dioxide, total [Moles /volume] in Central venous bloodOrdered By: Hebert Saavedra on 08-02-2024 CO2 [Moles/Vol] 21.3 mmol/L 21.0-32.0 [facility] Chest PA and Lateralon 08-02 Chest PA and Lateral Normal [facility] Chloride assayOrdered By: Adri Saavedra on 08-02-2024 Chloride [Moles/Vol] 113 mmol/L High 98-108 [facility] Determination of fraction of inspired oxygenOrdered By: Hebert Saavedra on 08-02-2024 Blood Gas Oxygen Percent 21.0 [facility] Emergency Department Summary on 08-02-2024 Emergency Department Summary Normal [facility] Eosinophil percentageOrdered By: Hebert Saavedra on 08-02-2024 Eosinophils/100 WBC (Bld) 6.6 % High 0-5 [facility] Epithelial cells.squamous LM Ql (Urine sed)Ordered By: Hebert Saavedra on 08-02-2024 Epithelial cells.squamous LM.HPF (Urine sed) [#/Area] 0 /[HPF] 0-5 [facility] Erythrocyte distribution wid th (RBC) [Ratio]Ordered By: Hebert Saavedra on 08-02-2024 Erythrocyte distribution width (RBC) [Entitic vol] 57.7 fL High 35.1-43.9 [facility] Erythrocyte distribution wid th ratioOrdered By: Hebert Saavedra on 08-02-2024 Erythrocyte distribution width (RBC) [Ratio] 17.7 % High 11.6-14.6 [facility] Erythrocyte distribution wid th standard deviationOrdered By: Hebert Saavedra on 08-02-2024 Erythrocyte distribution width (RBC) [Ratio] 57.7 fl High 35.1-43.9 [facility] Estimation of creatinine moon aranceOrdered By: Hebert Saavedra on 08-02-2024 Estimated Creatinine Clearance Calc 73.63 ml/min 50-250 [facility] GFR/1.73 sq M.predicted elias g non-blacks MDRD (S/P/Bld) [Vol rate/Area]Ordered By: Hebert Saavedra on 08-02-2024 Estimated GFR (MDRD) Non-Af Amer 74 >60 [facility] Comment on above: mL/min/1.73m2 CKD-EP I Creatinine Equation (2020) Glomerular filtration rate ( GFR) estimation/1.73 sq m using serum, plasma, or whole bOrdered By: Hebert Saavedra on 08-02-2024 GFR/1.73 sq M.predicted among non-blacks MDRD (S/P/Bld) [Vol rate/Area] 74 mL/min/{1.73_m2} >60 [facility] Comment on above: mL/min/1.73m2 CKD-EP I Creatinine Equation (2020) Glucose Ql (U)Ordered By: Adri Saavedra on 08-02-2024 Urine Glucose (UA) Normal mg/dl Normal [facility] Hematocrit Auto (Bld) [Volum e fraction]Ordered By: Hebert Saavedra on 08-02-2024 Hematocrit (Bld) [Volume fraction] 33.7 % Low 40-54 [facility] Hemoglobin measurementOrdere d By: Hebert Saavedra on 08-02-2024 Hemoglobin (Bld) [Mass/Vol] 10.8 g/dL Low 13.0-16.5 [facility] Immature granulocytes/100 WB C Auto (Bld)Ordered By: Hebert Saavedra on 08-02-2024 Immature granulocytes/100 WBC (Bld) 0.500 % 0.0-0.9 [facility] Comment on above: IG% - Immature Granu locytes (promyelocytes, myelocytes and metamyelocytes) > 1% indicates that a LEFT SHIFT is Present. Ketones Test strip Ql (U)Ord ered By: Hebert Saavedra on 08-02-2024 Ketones Ql (U) Negative Negative [facility] Lymphocytes Auto (Unsp spec) [#/Vol]Ordered By: Hebert Saavedra on 08-02-2024 Lymphocytes (Bld) [#/Vol] 1.13 10*3/uL 0.83-4.51 [facility] Lymphocytes/100 WBC Auto (Un sp spec)Ordered By: Hebert Saavedra on 08-02-2024 Lymphocytes/100 WBC (Bld) 15.1 % Low 19-41 [facility] MCV (mean corpuscular volume ) determinationOrdered By: Hebert Saavedra on 08-02-2024 MCV (RBC) [Entitic vol] 89.4 fL 80-94 [facility] Mean corpuscular hemoglobin (MCH) determinationOrdered By: Hebert Saavedra on 08-02-2024 MCH (RBC) [Entitic mass] 28.6 pg 27.0-32.0 [facility] Mean corpuscular hemoglobin concentration (MCHC) determinationOrdered By: Hebert Saavedra on 08-02-2024 MCHC (RBC) [Mass/Vol] 32.0 g/dL 32-36 [facility] Mean platelet volume determi nationOrdered By: Hebert Saavedra on 08-02-2024 Platelet mean volume (Bld) [Entitic vol] 9.8 fL 6.2-12.0 [facility] Microscopic analysis of urin e for red blood cells (RBC)Ordered By: Hebert Saavedra on 08-02-2024 Microscopic analysis of urine for red blood cells (RBC) 0 SEEN /hpf 0-5 [facility] Urine RBC 0 SEEN /hpf 0-5 [facility] Monocyte percentageOrdered B y: Hebert Saavedra on 08-02-2024 Monocytes/100 WBC (Bld) 15.1 % High 0-10 [facility] Mucus LM Ql (Urine sed)Order ed By: Hebert Saavedra on 08-02-2024 Mucus Ql (Urine sed) 0 SEEN /hpf [facility] Neutrophil percentageOrdered By: Hebert Saavedra on 08-02-2024 Neutrophils/100 WBC (Bld) 62.3 % 47-70 [facility] Nitrite Test strip Ql (U)Ord ered By: Hebert Saavedra on 08-02-2024 Nitrite Ql (U) Negative Negative [facility] No Panel InformationOrdered By: Hebert Saavedra on 08-02-2024 Blood Gas Sample Site Not entered [facility] Blood Gas Specimen Type LUZ ELENA [facility] Oxygen Delivery Device Not entered [facility] LUZ ELENA [facility] Not entered [facility] Nucleated red blood cell per centageOrdered By: Hebert Saavedra on 08-02-2024 Nucleated RBC/100 WBC (Bld) [Ratio] 0 % 0-5 [facility] Oxygen (BldV) [Partial press ure]Ordered By: Hebert Saavedra on 08-02-2024 Venous Blood Partial Pressure O2 81 mmHg High 25-40 [facility] Platelet countOrdered By: Adri Saavedra on 08-02-2024 Platelets (Bld) [#/Vol] 237 10*3/uL 150-450 [facility] Potassium (Unsp spec) [Mass/ Vol]Ordered By: Hebert Saavedra on 08-02-2024 Potassium [Moles/Vol] 3.6 mmol/L 3.3-5.1 [facility] Potassium measurement (mass/ volume)Ordered By: Hebert Saavedra on 08-02-2024 Potassium (Unsp spec) [Mass/Vol] 3.6 mmol/L 3.3-5.1 [facility] Protein Test strip Ql (U)Ord ered By: Hebert Saavedra on 08-02-2024 Protein Ql (U) 15 mg/dl High Negative [facility] RBC Auto (Bld) [#/Vol]Ordere d By: Hebert Saavedra on 08-02-2024 RBC (Bld) [#/Vol] 3.77 10*6/uL Low 4.6-6.2 [facility] Serum creatinine measurement (mass/volume)Ordered By: Hebert Saavedra on 08-02-2024 Creatinine [Mass/Vol] 1.10 mg/dL 0.70-1.20 [facility] Serum glucose measurement (m ass/volume)Ordered By: Hebert Saavedra on 08-02-2024 Glucose [Mass/Vol] 103 mg/dL High 70-99 [facility] Serum or plasma calcium marlyn urement (mass/volume)Ordered By: Hebertgerman Saavedra on 08-02-2024 Calcium [Mass/Vol] 8.9 mg/dL 7.6-11.0 [facility] Serum or plasma urea nitroge n measurement (mass/volume)Ordered By: Hebert Saavedra on 08-02-2024 Urea nitrogen [Mass/Vol] 23 mg/dL High 4-19 [facility] Sodium levelOrdered By: Hebertgerman Saavedra on 08-02-2024 Sodium [Moles/Vol] 144 mmol/L 133-145 [facility] Squamous epithelial cells de tection in urine sediment by light microscopyOrdered By: Hebert Saavedra on 08-02-2024 Epithelial cells.squamous LM Ql (Urine sed) 0 SEEN /hpf 0-5 [facility] Urinalysis, Completeon 08-02 WBC 0-5 SEEN Normal 0-5 [facility] Comment on above: Order Comment: CLEAN CATCH Performed By: #### L 400.0001 ####[facility] [address] [place], [place], [id number] BACTERIA 0 SEEN Normal None Seen [facility] Comment on above: Order Comment: CLEAN CATCH Performed By: #### L 400.0001 ####[facility] [address] [place], [address] EPI,SQUAMOUS 0 SEEN Normal 0-5 [facility] Comment on above: Order Comment: CLEAN CATCH Performed By: #### L 400.0001 ####[facility] [address] [place], [address] Mucus Ql (Urine sed) 0 SEEN Normal [facility] Comment on above: Order Comment: CLEAN CATCH Performed By: #### L 400.0001 ####[facility] [address] [place], [address] RBC 0 SEEN Normal 0-5 [facility] Comment on above: Order Comment: CLEAN CATCH Performed By: #### L 400.0001 ####[facility] [address] [place], [place], [id number] Urine Cultureon 08-02-2024 URC Normal [facility] Comment on above: Performed By: #### L 400.0001, M100.2200 ####[facility] [address] [place], [place], [id number] Urine blood detectionOrdered By: Hebert Saavedra on 08-02-2024 Urine Occult Blood 10 /ul High Negative [facility] Urine clarityOrdered By: Hebert Saavedra on 08-02-2024 Clarity (U) Clear Clear [facility] Urine color determinationOrd ered By: Hebert Saavedra on 08-02-2024 Color (U) Yellow Yellow [facility] Urine glucose detectionOrder ed By: Hebert Saavedra on 08-02-2024 Glucose Ql (U) Normal mg/dl Normal [facility] Urine leukocyte esterase det ection by dipstickOrdered By: Hebert Saavedra on 08-02-2024 Leukocyte esterase Test strip Ql (U) 500 /ul High Negative [facility] Urine pHOrdered By: Hebert porter on 08-02-2024 pH (U) 7.0 [pH] 5.0 - 8.0 [facility] Urine sediment bacteria coun t by microscopy (number/high power field)Ordered By: Hebert Saavedra on 08-02-2024 Bacteria LM.HPF (Urine sed) [#/Area] 0 /[HPF] None Seen [facility] Urine specific gravity measu rementOrdered By: Hebert Saavedra on 08-02-2024 Specific gravity (U) [Rel density] 1.005 1.002-1.030 [facility] Urine urobilinogen measureme ntOrdered By: Hebert Saavedra on 08-02-2024 Urobilinogen Ql (U) Normal mg/dl Normal [facility] Urobilinogen Ql (U)Ordered B y: Hebert Saavedra on 08-02-2024 Urine Urobilinogen Normal mg/dl Normal [facility] Venous Blood Gason 5 Blood Gas Type LUZ ELENA Normal [facility] Comment on above: Performed By: #### L 9000.0810 ####[facility] [address] [place], [address] CO2 [Moles/Vol] 33 mmol/L Normal 23-33 [facility] Comment on above: Performed By: #### L 9000.0810 ####[facility] [address] [facility] [address] FI02 21.0 [facility] Comment on above: Performed By: #### L 9000.0810 ####[facility] [address] [place], [address] HCO3 (Bld) [Moles/Vol] 32 mmol/L High 22-26 [facility] Comment on above: Performed By: #### L 9000.0810 ####[facility] [address] [place], [address] O2 Delivery Dev Not entered [facility] Comment on above: Performed By: #### L 9000.0810 ####[facility] [address] [place], [address] SITE Not entered [facility] Comment on above: Performed By: #### L 9000.0810 ####[facility] [address] [place], [address] VBG BE 10 mmol/L High -1.0-3.5 [facility] Comment on above: Performed By: #### L 9000.0810 ####[facility] [address] [place], [place], [address] VBG pCO2 37.5 mmHg Low 41-51 [facility] Comment on above: Performed By: #### L 9000.0810 ####[facility] [address] [facility] [address] VBG pH 7.54 High 7.32-7.42 [facility] Comment on above: Performed By: #### L 9000.0810 ####[facility] [address] [place], [address] VBG PO2 81 mmHg High 25-40 [facility] Comment on above: Performed By: #### L 9000.0810 ####[facility] [address] [place], [address] VBG SO2 97 High 50-70 [facility] Comment on above: Performed By: #### L 9000.0810 ####[facility] [address] [place], [place], [address] Venous blood base excess gregoria surementOrdered By: Hebert Saavedra on 08-02-2024 Base excess Calc (BldV) [Moles/Vol] 10 mmol/L High -1.0-3.5 [facility] Venous blood bicarbonate gregoria surementOrdered By: Hebert Saavedra on 08-02-2024 HCO3 (Bld) [Moles/Vol] 32 mmol/L High 22-26 [facility] Venous blood oxygen saturati on measurementOrdered By: Hebert Saavedra on 08-02-2024 Oxygen saturation in Blood 97 % High 50-70 [facility] Venous blood pH measurementO rdered By: Hebert Saavedra on 08-02-2024 pH (BldV) 7.54 [pH] High 7.32-7.42 [facility] Venous blood partial pressur e of carbon dioxide measurementOrdered By: Hebert Saavedra on 08-02-2024 CO2 (BldV) [Partial pressure] 37.5 mm[Hg] Low 41-51 [facility] Venous blood partial pressur e of oxygen measurementOrdered By: Hebert Saavedra on 08-02-2024 Oxygen (BldV) [Partial pressure] 81 mm[Hg] High 25-40 [facility] White blood cell (WBC) count Ordered By: Hebert Saavedra on 08-02-2024 WBC (Bld) [#/Vol] 7.5 10*3/uL 4.4-11.0 [facility] White blood cell countOrdere d By: Hebert Saavedra on 08-02-2024 Urine WBC 0-5 SEEN /hpf 0-5 [facility] White blood cell count 0-5 SEEN /hpf 0-5 [facility] pH (BldV)Ordered By: Hebert muniz on 08-02-2024 Venous Blood pH 7.54 High 7.32-7.42 [facility] Absolute lymphocyte countOrd ered By: Miller Blank on 08-01-2024 Lymphocytes Auto (Unsp spec) [#/Vol] 1.14 10*3/uL 0.83-4.51 [facility] Absolute neutrophil countOrd ered By: Miller Blank on 08-01-2024 Neutrophils (Bld) [#/Vol] 6.1 10*3/uL 2.0-7.7 [facility] Ammoniaon 08-01-2024 Ammonia (P) [Moles/Vol] 43.8 umol/L Normal 16-60 [facility] Comment on above: Performed By: #### L 503.5510 ####[facility] [address] [place], [place], [id number] Anion gap in Serum or Plasma Ordered By: Miller Blank on 08-01-2024 Anion gap [Moles/Vol] 10 mmol/L 5-15 [facility] Automated lymphocyte count a s percentage of total leukocytesOrdered By: Miller Blank on 08-01-2024 Lymphocytes/100 WBC Auto (Unsp spec) 13.2 % Low 19-41 [facility] BUN/creatinine ratioOrdered By: Miller Blank on 08-01-2024 Urea nitrogen/Creatinine [Mass ratio] 12.9 mg/mg 10-20 [facility] Basic Metabolic Profile (BMP )on 08-01-2024 BUN/CRE 12.9 RATIO Normal - [facility] Comment on above: Performed By: #### L 500.2500, L100.0100 ####[facility] [address] [place], [address] Calcium [Mass/Vol] 8.7 mg/dL Normal 7.6-11.0 [facility] Comment on above: Performed By: #### L 500.2500, L100.0100 ####[facility] [address] [place], [address] Chloride [Moles/Vol] 113 mmol/L High 98-108 [facility] Comment on above: Performed By: #### L 500.2500, L100.0100 ####[facility] [address] [place], [address] CO2 [Moles/Vol] 20.3 mmol/L Low 21.0-32.0 [facility] Comment on above: Performed By: #### L 500.2500, L100.0100 ####[facility] [address] [place], [address] Creatinine [Mass/Vol] 1.06 mg/dL Normal 0.70-1.20 [facility] Comment on above: Performed By: #### L 500.2500, L100.0100 ####[facility] [address] [place], [address] ECRCL 73.88 ml/min Normal 50-250 [facility] Comment on above: Performed By: #### L 500.2500, L100.0100 ####[facility] [address] [place], [address] GAP 10 Normal 5-15 [facility] Comment on above: Performed By: #### L 500.2500, L100.0100 ####[facility] [address] [place], [address] GFR/1.73 sq M.predicted among non-blacks MDRD (S/P/Bld) [Vol rate/Area] 77 mL/min/{1.73_m2} Normal >60 [facility] Comment on above: Result Comment: mL/m in/1.73m2 CKD-EPI Creatinine Equation (2020) Performed By: #### L 500.2500, L100.0100 ####[facility] [address] [place], [address] Glucose [Mass/Vol] 165 mg/dL High 70-99 [facility] Comment on above: Performed By: #### L 500.2500, L100.0100 ####[facility] [address] [place], [address] Potassium [Moles/Vol] 3.6 mmol/L Normal 3.3-5.1 [facility] Comment on above: Performed By: #### L 500.2500, L100.0100 ####[facility] [address] [place], [address] Sodium [Moles/Vol] 142 mmol/L Normal 133-145 [facility] Comment on above: Performed By: #### L 500.2500, L100.0100 ####[facility] [address] [place], [address] Urea nitrogen [Mass/Vol] 14 mg/dL Normal 4-19 [facility] Comment on above: Performed By: #### L 500.2500, L100.0100 ####[facility] [address] [place], [address] Basophil percentageOrdered B y: Miller Blank on 08-01-2024 Basophils/100 WBC (Bld) 0.3 % 0-1 [facility] Bedside Glucoseon 08-01-2024 FINGERSTICK GLU 131 mg/dL High 74-106 [facility] Comment on above: Result Comment: FATEMEH GEMENT OF PATIENT CARE PER NURSING PROTOCOL Performed By: #### L 501.080 ####[facility] [address] [place], [address] FINGERSTICK GLU 152 mg/dL High 74-106 [facility] Comment on above: Result Comment: FATEMEH GEMENT OF PATIENT CARE PER NURSING PROTOCOL Performed By: #### L 501.080 ####[facility] [address] [place], [address] CBC W/Diff, Automatedon 05-0 5-2025 Absolute Lymph 1.14 X10 3/uL Normal 0.83-4.51 [facility] Comment on above: Performed By: #### L 500.2500, L100.0100 ####[facility] [address] [place], [address] Absolute Neut 6.1 X10 3/uL Normal 2.0-7.7 [facility] Comment on above: Performed By: #### L 500.2500, L100.0100 ####[facility] [address] [place], [address] Basophils/100 WBC (Bld) 0.3 % Normal 0-1 [facility] Comment on above: Performed By: #### L 500.2500, L100.0100 ####[facility] [address] [place], [address] Eosinophils/100 WBC (Bld) 2.3 % Normal 0-5 [facility] Comment on above: Performed By: #### L 500.2500, L100.0100 ####[facility] [address] [place], [address] Erythrocyte distribution width (RBC) [Ratio] 17.6 % High 11.6-14.6 [facility] Comment on above: Performed By: #### L 500.2500, L100.0100 ####[facility] [address] [place], [address] Hematocrit (Bld) [Volume fraction] 33.4 % Low 40-54 [facility] Comment on above: Performed By: #### L 500.2500, L100.0100 ####[facility] [address] [place], [address] Hemoglobin (Bld) [Mass/Vol] 10.7 g/dL Low 13.0-16.5 [facility] Comment on above: Performed By: #### L 500.2500, L100.0100 ####[facility] [address] [place], [address] IG% 0.900 Normal 0.0-0.9 [facility] Comment on above: Result Comment: IG% - Immature Granulocytes (promyelocytes, myelocytes andmetamyelocytes) > 1% indicates that a LEFT SHIFT is Present. Performed By: #### L 500.2500, L100.0100 ####[facility] [address] [place], [address] Lymphocytes/100 WBC (Bld) 13.2 % Low 19-41 [facility] Comment on above: Performed By: #### L 500.2500, L100.0100 ####[facility] [address] [place], [address] MCH (RBC) [Entitic mass] 28.7 pg Normal 27.0-32.0 [facility] Comment on above: Performed By: #### L 500.2500, L100.0100 ####[facility] [address] [place], [address] MCHC (RBC) [Mass/Vol] 32.0 g/dL Normal 32-36 [facility] Comment on above: Performed By: #### L 500.2500, L100.0100 ####[facility] [address] [place], [address] MCV (RBC) [Entitic vol] 89.5 fL Normal 80-94 [facility] Comment on above: Performed By: #### L 500.2500, L100.0100 ####[facility] [address] [place], [address] Monocytes/100 WBC (Bld) 12.3 % High 0-10 [facility] Comment on above: Performed By: #### L 500.2500, L100.0100 ####[facility] [address] [place], [address] Neutrophils/100 WBC (Bld) 71.0 % High 47-70 [facility] Comment on above: Performed By: #### L 500.2500, L100.0100 ####[facility] [address] [place], [address] Nucleated RBC (Bld) [#/Vol] 0 10*3/uL Normal 0-5 [facility] Comment on above: Performed By: #### L 500.2500, L100.0100 ####[facility] [address] [place], [address] Platelet mean volume (Bld) [Entitic vol] 10.2 fL Normal 6.2-12.0 [facility] Comment on above: Performed By: #### L 500.2500, L100.0100 ####[facility] [address] [place], [address] Platelets (Bld) [#/Vol] 222 10*3/uL Normal 150-450 [facility] Comment on above: Performed By: #### L 500.2500, L100.0100 ####[facility] [address] [place], [address] RBC (Bld) [#/Vol] 3.73 10*6/uL Low 4.6-6.2 [facility] Comment on above: Performed By: #### L 500.2500, L100.0100 ####[facility] [address] [place], [address] RDW SD 57.0 fl High 35.1-43.9 [facility] Comment on above: Performed By: #### L 500.2500, L100.0100 ####[facility] [address] [place], [address] WBC (Bld) [#/Vol] 8.6 10*3/uL Normal 4.4-11.0 [facility] Comment on above: Performed By: #### L 500.2500, L100.0100 ####[facility] [address] [place], [address] Carbon dioxide, total [Moles /volume] in Central venous bloodOrdered By: Miller Blank on 08-01-2024 CO2 [Moles/Vol] 20.3 mmol/L Low 21.0-32.0 [facility] Chloride assayOrdered By: Keegan Blank on 08-01-2024 Chloride [Moles/Vol] 113 mmol/L High 98-108 [facility] Consultation - Urologyon Consultation - Urology Normal [facility] Eosinophil percentageOrdered By: Miller Blank on 08-01-2024 Eosinophils/100 WBC (Bld) 2.3 % 0-5 [facility] Erythrocyte distribution wid th (RBC) [Ratio]Ordered By: Miller Blank on 08-01-2024 Erythrocyte distribution width (RBC) [Entitic vol] 57.0 fL High 35.1-43.9 [facility] Erythrocyte distribution wid th ratioOrdered By: Miller Blank on 08-01-2024 Erythrocyte distribution width (RBC) [Ratio] 17.6 % High 11.6-14.6 [facility] Erythrocyte distribution wid th standard deviationOrdered By: Miller Blank on 08-01-2024 Erythrocyte distribution width (RBC) [Ratio] 57.0 fl High 35.1-43.9 [facility] Estimation of creatinine moon aranceOrdered By: Miller Blank on 08-01-2024 Estimated Creatinine Clearance Calc 73.88 ml/min 50-250 [facility] GFR/1.73 sq M.predicted elias g non-blacks MDRD (S/P/Bld) [Vol rate/Area]Ordered By: Miller Blank on 08-01-2024 Estimated GFR (MDRD) Non-Af Amer 77 >60 [facility] Comment on above: mL/min/1.73m2 CKD-EP I Creatinine Equation (2020) Glomerular filtration rate ( GFR) estimation/1.73 sq m using serum, plasma, or whole bOrdered By: Miller Blank on 08-01-2024 GFR/1.73 sq M.predicted among non-blacks MDRD (S/P/Bld) [Vol rate/Area] 77 mL/min/{1.73_m2} >60 [facility] Comment on above: mL/min/1.73m2 CKD-EP I Creatinine Equation (2020) Glucose measurement at [facility] deOrdered By: Basilio Dill on 08-01-2024 Bedside Glucose (Misc Panel) 131 mg/dL High 74-106 [facility] Comment on above: MANAGEMENT OF PATIEN T CARE PER NURSING PROTOCOL Glucose [Mass/Vol] 131 mg/dL High 74-106 [facility] Comment on above: MANAGEMENT OF PATIEN T CARE PER NURSING PROTOCOL Hematocrit Auto (Bld) [Volum e fraction]Ordered By: Miller Blank on 08-01-2024 Hematocrit (Bld) [Volume fraction] 33.4 % Low 40-54 [facility] Hemoglobin measurementOrdere d By: Miller Blank on 08-01-2024 Hemoglobin (Bld) [Mass/Vol] 10.7 g/dL Low 13.0-16.5 [facility] Immature granulocytes/100 WB C Auto (Bld)Ordered By: Miller Blank on 08-01-2024 Immature granulocytes/100 WBC (Bld) 0.900 % 0.0-0.9 [facility] Comment on above: IG% - Immature Granu locytes (promyelocytes, myelocytes and metamyelocytes) > 1% indicates that a LEFT SHIFT is Present. Kidney and Bladderon 025 Kidney and Bladder Normal [facility] Lymphocytes Auto (Unsp spec) [#/Vol]Ordered By: Miller Blank on 08-01-2024 Lymphocytes (Bld) [#/Vol] 1.14 10*3/uL 0.83-4.51 [facility] Lymphocytes/100 WBC Auto (Un sp spec)Ordered By: Miller Blank on 08-01-2024 Lymphocytes/100 WBC (Bld) 13.2 % Low 19-41 [facility] MCV (mean corpuscular volume ) determinationOrdered By: Miller Blank on 08-01-2024 MCV (RBC) [Entitic vol] 89.5 fL 80-94 [facility] Mean corpuscular hemoglobin (MCH) determinationOrdered By: Miller Blank on 08-01-2024 MCH (RBC) [Entitic mass] 28.7 pg 27.0-32.0 [facility] Mean corpuscular hemoglobin concentration (MCHC) determinationOrdered By: Miller Blank on 08-01-2024 MCHC (RBC) [Mass/Vol] 32.0 g/dL 32-36 [facility] Mean platelet volume determi nationOrdered By: Miller Blank on 08-01-2024 Platelet mean volume (Bld) [Entitic vol] 10.2 fL 6.2-12.0 [facility] Monocyte percentageOrdered B y: Miller Blank on 08-01-2024 Monocytes/100 WBC (Bld) 12.3 % High 0-10 [facility] Neutrophil percentageOrdered By: Miller Blank on 08-01-2024 Neutrophils/100 WBC (Bld) 71.0 % High 47-70 [facility] Nucleated red blood cell per centageOrdered By: Miller Blank on 08-01-2024 Nucleated RBC/100 WBC (Bld) [Ratio] 0 % 0-5 [facility] Platelet countOrdered By: Keegan Blank on 08-01-2024 Platelets (Bld) [#/Vol] 222 10*3/uL 150-450 [facility] Potassium (Unsp spec) [Mass/ Vol]Ordered By: Miller Blank on 08-01-2024 Potassium [Moles/Vol] 3.6 mmol/L 3.3-5.1 [facility] Potassium measurement (mass/ volume)Ordered By: Miller Blank on 08-01-2024 Potassium (Unsp spec) [Mass/Vol] 3.6 mmol/L 3.3-5.1 [facility] RBC Auto (Bld) [#/Vol]Ordere d By: Miller Blank on 08-01-2024 RBC (Bld) [#/Vol] 3.73 10*6/uL Low 4.6-6.2 [facility] Serum creatinine measurement (mass/volume)Ordered By: Miller Blnak on 08-01-2024 Creatinine [Mass/Vol] 1.06 mg/dL 0.70-1.20 [facility] Serum glucose measurement (m ass/volume)Ordered By: Miller Blank on 08-01-2024 Glucose [Mass/Vol] 165 mg/dL High 70-99 [facility] Serum or plasma calcium marlyn urement (mass/volume)Ordered By: Miller Blank on 08-01-2024 Calcium [Mass/Vol] 8.7 mg/dL 7.6-11.0 [facility] Serum or plasma urea nitroge n measurement (mass/volume)Ordered By: Miller Blank on 08-01-2024 Urea nitrogen [Mass/Vol] 14 mg/dL 4-19 [facility] Sodium levelOrdered By: Gerardo Blank on 08-01-2024 Sodium [Moles/Vol] 142 mmol/L 133-145 [facility] Trough vancomycin levelOrder ed By: Miller Blank on 08-01-2024 Vancomycin trough [Mass/Vol] 23.9 ug/mL High 5.0-15.0 [facility] Comment on above: Recommended goal tro [...] therapy recommended for serious lifethreatening infections include:- Bbzhbntwfk-Ezpiucqirfbb-Njxfdrtdj (Ventilator/Healtcare Associated)-Sepsis PLEASE CONTACT PHARMACY SERVICES (#[id number]) FOR INTERPRETATIONOF RESULTS. Vancomycin trough [Mass/Vol] Ordered By: Miller Blank on 08-01-2024 Vancomycin Level Trough 23.9 ug/mL High 5.0-15.0 [facility] Comment on above: Recommended goal tro [...] therapy recommended for serious lifethreatening infections include:- Jzqjlosfyf-Wzwogbbqcemv-Bavsudjmu (Ventilator/Healtcare Associated)-Sepsis PLEASE CONTACT PHARMACY SERVICES (#[id number]) FOR INTERPRETATIONOF RESULTS. Vancomycin, Trough Levelon 0 08-01-2024 VANCO, TROUGH 23.9 ug/mL High 5.0-15.0 [facility] Comment on above: Order Comment: Comme nts: Trough to be drawn 30 mins prior to scheduled [id number] Result Comment: Jhon mmended goal trough ranges [...] therapy recommended for serious lifethreatening infections include:- Ucuwzqngzs-Yseolmvidmyu-Stygfsdyj (Ventilator/Healtcare Associated)-SepsisPLEASE CONTACT PHARMACY SERVICES (#[id number]) FOR INTERPRETATIONOF RESULTS. Performed By: #### L 501.8872 ####[facility] [address] [place], [address] Venous blood ammonia measure mentOrdered By: Isha Zurita on 08-01-2024 Ammonia (P) [Moles/Vol] 43.8 umol/L 16-60 [facility] White blood cell (WBC) count Ordered By: Miller Blank on 08-01-2024 WBC (Bld) [#/Vol] 8.6 10*3/uL 4.4-11.0 [facility] Basic Metabolic Profile (BMP )on 07-31-2024 BUN/CRE 14.8 RATIO Normal 10-20 [facility] Comment on above: Performed By: #### L 100.0100, L501.2300, L500.2500, L501.5200 ####[facility] [address] [place], [address] Calcium [Mass/Vol] 8.8 mg/dL Normal 7.6-11.0 [facility] Comment on above: Performed By: #### L 100.0100, L501.2300, L500.2500, L501.5200 ####[facility] [address] [place], [address] Chloride [Moles/Vol] 111 mmol/L High 98-108 [facility] Comment on above: Performed By: #### L 100.0100, L501.2300, L500.2500, L501.5200 ####[facility] [address] [place], [address] CO2 [Moles/Vol] 19.9 mmol/L Low 21.0-32.0 [facility] Comment on above: Performed By: #### L 100.0100, L501.2300, L500.2500, L501.5200 ####[facility] [address] [place], [address] Creatinine [Mass/Vol] 0.89 mg/dL Normal 0.70-1.20 [facility] Comment on above: Performed By: #### L 100.0100, L501.2300, L500.2500, L501.5200 ####[facility] [address] [place], [address] ECRCL 88.54 ml/min Normal 50-250 [facility] Comment on above: Performed By: #### L 100.0100, L501.2300, L500.2500, L501.5200 ####[facility] [address] [place], [address] GAP 10 Normal 5-15 [facility] Comment on above: Performed By: #### L 100.0100, L501.2300, L500.2500, L501.5200 ####[facility] [address] [place], [address] GFR/1.73 sq M.predicted among non-blacks MDRD (S/P/Bld) [Vol rate/Area] 94 mL/min/{1.73_m2} Normal >60 [facility] Comment on above: Result Comment: mL/m in/1.73m2 CKD-EPI Creatinine Equation (2020) Performed By: #### L 100.0100, L501.2300, L500.2500, L501.5200 ####[facility] [address] [place], [address] Glucose [Mass/Vol] 149 mg/dL High 70-99 [facility] Comment on above: Performed By: #### L 100.0100, L501.2300, L500.2500, L501.5200 ####[facility] [address] [place], [address] Potassium [Moles/Vol] 3.6 mmol/L Normal 3.3-5.1 [facility] Comment on above: Performed By: #### L 100.0100, L501.2300, L500.2500, L501.5200 ####[facility] [address] [place], [address] Sodium [Moles/Vol] 140 mmol/L Normal 133-145 [facility] Comment on above: Performed By: #### L 100.0100, L501.2300, L500.2500, L501.5200 ####[facility] [address] [place], [address] Urea nitrogen [Mass/Vol] 13 mg/dL Normal 4-19 [facility] Comment on above: Performed By: #### L 100.0100, L501.2300, L500.2500, L501.5200 ####[facility] [address] [place], [address] Bedside Glucoseon 07-31-2024 FINGERSTICK GLU 140 mg/dL High 74-106 [facility] Comment on above: Result Comment: FATEMEH GEMENT OF PATIENT CARE PER NURSING PROTOCOL Performed By: #### L 501.080 ####[facility] [address] [place], [address] FINGERSTICK GLU 166 mg/dL High 74-106 [facility] Comment on above: Result Comment: FATEMEH GEMENT OF PATIENT CARE PER NURSING PROTOCOL Performed By: #### L 501.080 ####[facility] [address] [place], [address] FINGERSTICK GLU 185 mg/dL High 74-106 [facility] Comment on above: Result Comment: FATEMEH GEMENT OF PATIENT CARE PER NURSING PROTOCOL Performed By: #### L 501.080 ####[facility] [address] [place], [address] FINGERSTICK GLU 139 mg/dL High 74-106 [facility] Comment on above: Result Comment: FATEMEH GEMENT OF PATIENT CARE PER NURSING PROTOCOL Performed By: #### L 501.080 ####[facility] [address] [place], [address] FINGERSTICK GLU 162 mg/dL High 74-106 [facility] Comment on above: Result Comment: FATEMEH GEMENT OF PATIENT CARE PER NURSING PROTOCOL Performed By: #### L 501.080 ####[facility] [address] [place], [address] CBC W/Diff, Automatedon 05-0 4-2025 Absolute Lymph 0.96 X10 3/uL Normal 0.83-4.51 [facility] Comment on above: Performed By: #### L 100.0100, L501.2300, L500.2500, L501.5200 ####[facility] [address] [place], [address] Absolute Neut 9.0 X10 3/uL High 2.0-7.7 [facility] Comment on above: Performed By: #### L 100.0100, L501.2300, L500.2500, L501.5200 ####[facility] [address] [place], [address] Basophils/100 WBC (Bld) 0.3 % Normal 0-1 [facility] Comment on above: Performed By: #### L 100.0100, L501.2300, L500.2500, L501.5200 ####[facility] [address] [place], [address] Eosinophils/100 WBC (Bld) 1.8 % Normal 0-5 [facility] Comment on above: Performed By: #### L 100.0100, L501.2300, L500.2500, L501.5200 ####[facility] [address] [place], [address] Erythrocyte distribution width (RBC) [Ratio] 17.2 % High 11.6-14.6 [facility] Comment on above: Performed By: #### L 100.0100, L501.2300, L500.2500, L501.5200 ####[facility] [address] [place], [address] Hematocrit (Bld) [Volume fraction] 34.1 % Low 40-54 [facility] Comment on above: Performed By: #### L 100.0100, L501.2300, L500.2500, L501.5200 ####[facility] [address] [place], [address] Hemoglobin (Bld) [Mass/Vol] 11.0 g/dL Low 13.0-16.5 [facility] Comment on above: Performed By: #### L 100.0100, L501.2300, L500.2500, L501.5200 ####[facility] [address] [place], [address] IG% 0.600 Normal 0.0-0.9 [facility] Comment on above: Result Comment: IG% - Immature Granulocytes (promyelocytes, myelocytes andmetamyelocytes) > 1% indicates that a LEFT SHIFT is Present. Performed By: #### L 100.0100, L501.2300, L500.2500, L501.5200 ####[facility] [address] [place], [address] Lymphocytes/100 WBC (Bld) 8.7 % Low 19-41 [facility] Comment on above: Performed By: #### L 100.0100, L501.2300, L500.2500, L501.5200 ####[facility] [address] [place], [address] MCH (RBC) [Entitic mass] 28.6 pg Normal 27.0-32.0 [facility] Comment on above: Performed By: #### L 100.0100, L501.2300, L500.2500, L501.5200 ####[facility] [address] [place], [address] MCHC (RBC) [Mass/Vol] 32.3 g/dL Normal 32-36 [facility] Comment on above: Performed By: #### L 100.0100, L501.2300, L500.2500, L501.5200 ####[facility] [address] [place], [address] MCV (RBC) [Entitic vol] 88.6 fL Normal 80-94 [facility] Comment on above: Performed By: #### L 100.0100, L501.2300, L500.2500, L501.5200 ####[facility] [address] [place], [address] Monocytes/100 WBC (Bld) 7.3 % Normal 0-10 [facility] Comment on above: Performed By: #### L 100.0100, L501.2300, L500.2500, L501.5200 ####[facility] [address] [place], [address] Neutrophils/100 WBC (Bld) 81.3 % High 47-70 [facility] Comment on above: Performed By: #### L 100.0100, L501.2300, L500.2500, L501.5200 ####[facility] [address] [place], [address] Nucleated RBC (Bld) [#/Vol] 0 10*3/uL Normal 0-5 [facility] Comment on above: Performed By: #### L 100.0100, L501.2300, L500.2500, L501.5200 ####[facility] [address] [place], [address] Platelet mean volume (Bld) [Entitic vol] 9.6 fL Normal 6.2-12.0 [facility] Comment on above: Performed By: #### L 100.0100, L501.2300, L500.2500, L501.5200 ####[facility] [address] [place], [address] Platelets (Bld) [#/Vol] 239 10*3/uL Normal 150-450 [facility] Comment on above: Performed By: #### L 100.0100, L501.2300, L500.2500, L501.5200 ####[facility] [address] [place], [address] RBC (Bld) [#/Vol] 3.85 10*6/uL Low 4.6-6.2 [facility] Comment on above: Performed By: #### L 100.0100, L501.2300, L500.2500, L501.5200 ####[facility] [address] [place], [address] RDW SD 55.7 fl High 35.1-43.9 [facility] Comment on above: Performed By: #### L 100.0100, L501.2300, L500.2500, L501.5200 ####[facility] [address] [place], [address] WBC (Bld) [#/Vol] 11.1 10*3/uL High 4.4-11.0 [facility] Comment on above: Performed By: #### L 100.0100, L501.2300, L500.2500, L501.5200 ####[facility] [address] [place], [address] Magnesiumon 07-31-2024 Magnesium [Mass/Vol] 1.8 mg/dL Normal 1.5-2.2 [facility] Comment on above: Performed By: #### L 100.0100, L501.2300, L500.2500, L501.5200 ####[facility] [address] [place], [address] Magnesium (Unsp spec) [Mass/ Vol]Ordered By: Miller Blank on 07-31-2024 Magnesium [Mass/Vol] 1.8 mg/dL 1.5-2.2 [facility] Magnesium measurement (mass/ volume)Ordered By: Miller Blank on 07-31-2024 Magnesium (Unsp spec) [Mass/Vol] 1.8 mg/dL 1.5-2.2 [facility] Phosphoruson 07-31-2024 Phosphate [Mass/Vol] 2.8 mg/dL Normal 2.7-4.5 [facility] Comment on above: Performed By: #### L 100.0100, L501.2300, L500.2500, L501.5200 ####[facility] [id number] [place], [place], [id number] Serum phosphorus measurement Ordered By: Miller Blank on 07-31-2024 Phosphorus Level 2.8 mg/dL 2.7-4.5 [facility] Vancomycin, Trough Levelon 0 07-31-2024 VANCO, TROUGH 19.4 ug/mL High 5.0-15.0 [facility] Comment on above: Order Comment: Comme nts: Trough to be drawn 30 mins prior to scheduled [id number] Result Comment: Jhon mmended goal trough ranges [...] therapy recommended for serious lifethreatening infections include:- Bvavlhwnap-Bzymqkrnuzsh-Epqolqfgc (Ventilator/Healtcare Associated)-SepsisPLEASE CONTACT PHARMACY SERVICES (#1920) FOR INTERPRETATIONOF RESULTS. Performed By: #### L 501.8820 ####[facility] [address] [place], [place], [address] Bedside Glucoseon 07-30-2024 FINGERSTICK GLU 134 mg/dL High 74-106 [facility] Comment on above: Result Comment: FATEMEH MILLER OF PATIENT CARE PER NURSING PROTOCOL Performed By: #### L 501.080 ####[facility] [address] [place], [address] FINGERSTICK GLU 151 mg/dL High 74-106 [facility] Comment on above: Result Comment: FATEMEH MILLER OF PATIENT CARE PER NURSING PROTOCOL Performed By: #### L 501.080 ####[facility] [address] [place], [address] Bilirubin, totalOrdered By: Isha Zurita on 07-30-2024 Bilirubin [Mass/Vol] 0.28 mg/dL 0.00-1.30 [facility] Blood manual differential co mment interpretation (narrative result)Ordered By: Isha Zurita on 07-30-2024 Manual differential comment Dmitriy (Bld) [Interp] SCANNED [facility] Comment on above: SLIGHT MONOCYTOSIS N OTED CBC W/Diff, Automatedon SMEAR COMMENT SCANNED Normal [facility] Comment on above: Result Comment: SLIG HT MONOCYTOSIS NOTED Performed By: #### L 501.9985, L100.0100, L500.4050 ####[facility] [address] [place], [address] Comprehensive Metabolic Prof ilon 07-30-2024 Albumin [Mass/Vol] 3.0 g/dL Low 3.4-4.8 [facility] Comment on above: Performed By: #### L 501.9985, L100.0100, L500.4050 ####[facility] [address] [place], [address] Albumin/Globulin [Mass ratio] 1.0 {ratio} Normal 0.9-2.4 [facility] Comment on above: Performed By: #### L 501.9985, L100.0100, L500.4050 ####[facility] [address] [place], [address] ALK PHOS 95 U/L Normal 40-129 [facility] Comment on above: Performed By: #### L 501.9985, L100.0100, L500.4050 ####[facility] [address] [place], [address] ALT [Catalytic activity/Vol] 16 U/L Normal <=46 [facility] Comment on above: Performed By: #### L 501.9985, L100.0100, L500.4050 ####[facility] [address] [place], [address] AST [Catalytic activity/Vol] 14 U/L Normal <=37 [facility] Comment on above: Performed By: #### L 501.9985, L100.0100, L500.4050 ####[facility] [address] [place], [address] Bilirubin [Mass/Vol] 0.28 mg/dL Normal 0.00-1.30 [facility] Comment on above: Performed By: #### L 501.9985, L100.0100, L500.4050 ####[facility] [address] [place], [address] BUN/CRE 16.0 RATIO Normal 10-20 [facility] Comment on above: Performed By: #### L 501.9985, L100.0100, L500.4050 ####[facility] [address] [place], [address] Calcium [Mass/Vol] 8.3 mg/dL Normal 7.6-11.0 [facility] Comment on above: Performed By: #### L 501.9985, L100.0100, L500.4050 ####[facility] [address] [place], [address] Chloride [Moles/Vol] 112 mmol/L High 98-108 [facility] Comment on above: Performed By: #### L 501.9985, L100.0100, L500.4050 ####[facility] [address] [place], [address] CO2 [Moles/Vol] 20.2 mmol/L Low 21.0-32.0 [facility] Comment on above: Performed By: #### L 501.9985, L100.0100, L500.4050 ####[facility] [address] [place], [address] Creatinine [Mass/Vol] 0.53 mg/dL Low 0.70-1.20 [facility] Comment on above: Performed By: #### L 501.9985, L100.0100, L500.4050 ####[facility] [address] [place], [address] ECRCL 98.55 ml/min Normal 50-250 [facility] Comment on above: Performed By: #### L 501.9985, L100.0100, L500.4050 ####[facility] [address] [place], [address] GAP 10 Normal 5-15 [facility] Comment on above: Performed By: #### L 501.9985, L100.0100, L500.4050 ####[facility] [address] [place], [address] GFR/1.73 sq M.predicted among non-blacks MDRD (S/P/Bld) [Vol rate/Area] 110 mL/min/{1.73_m2} Normal >60 [facility] Comment on above: Result Comment: mL/m in/1.73m2 CKD-EPI Creatinine Equation (2020) Performed By: #### L 501.9985, L100.0100, L500.4050 ####[facility] [address] [place], [address] Globulin (S) [Mass/Vol] 2.9 g/dL Normal 2.2-4.2 [facility] Comment on above: Performed By: #### L 501.9985, L100.0100, L500.4050 ####[facility] [address] [place], [address] Glucose [Mass/Vol] 144 mg/dL High 70-99 [facility] Comment on above: Performed By: #### L 501.9985, L100.0100, L500.4050 ####[facility] [address] [place], [address] Potassium [Moles/Vol] 3.7 mmol/L Normal 3.3-5.1 [facility] Comment on above: Performed By: #### L 501.9985, L100.0100, L500.4050 ####[facility] [address] [place], [address] Sodium [Moles/Vol] 141 mmol/L Normal 133-145 [facility] Comment on above: Performed By: #### L 501.9985, L100.0100, L500.4050 ####[facility] [address] [place], [address] T PROT 5.8 g/dL Low 5.9-8.4 [facility] Comment on above: Performed By: #### L 501.9985, L100.0100, L500.4050 ####[facility] [address] [place], [address] Urea nitrogen [Mass/Vol] 9 mg/dL Normal 4-19 [facility] Comment on above: Performed By: #### L 501.9985, L100.0100, L500.4050 ####[facility] [address] [place], [address] Hemoglobin A1con 07-30-2024 HbA1c (Bld) [Mass fraction] 7.1 % High <=5.6 [facility] Comment on above: Result Comment: Norm al < 5.7 % Prediabetic 5.7 - 6.4 % Diabetic >or= 6.5 % Please note range changes. Performed By: #### L 501.9985, L100.0100, L500.4050 ####[facility] [address] [place], [place], [id number] Hemoglobin A1c percentageOrd ered By: Isha Zurita on 07-30-2024 HbA1c (Bld) [Mass fraction] 7.1 % High <5.7 [facility] Comment on above: Normal < 5.7 % Predi abetic 5.7 - 6.4 % Diabetic >or= 6.5 % Please note range changes. Laboratory - Chemistry and C hemistry - challengeOrdered By: Isha Zurita on 07-30-2024 AST [Catalytic activity/Vol] 14 U/L <38 [facility] Lactic Acidon 07-30-2024 Lactate [Moles/Vol] 1.7 mmol/L Normal 0.0-2.0 [facility] Comment on above: Performed By: #### L 503.6001 ####[facility] [address] [facility] [address] [place], [place], [id number] Lactic acid measurementOrder ed By: Andre Ferreira on 07-30-2024 Lactate [Moles/Vol] 1.7 mmol/L 0.0-2.0 [facility] Manual differential comment Dmitriy (Bld) [Interp]Ordered By: Isha Zurita on 07-30-2024 Differential Comment SCANNED [facility] Comment on above: SLIGHT MONOCYTOSIS N OTED No Panel InformationOrdered By: Isha Zurita on 07-30-2024 14 U/L <38 [facility] Serum globulin measurementOr dered By: Isha Zurita on 07-30-2024 Globulin (S) [Mass/Vol] 2.9 g/dL 2.2-4.2 [facility] Serum or plasma alanine orozco otransferase (ALT) measurementOrdered By: Isha Zurita on 07-30-2024 ALT [Catalytic activity/Vol] 16 U/L <47 [facility] Serum or plasma albumin marlyn urement (mass/volume)Ordered By: Isha Zurita on 07-30-2024 Albumin [Mass/Vol] 3.0 g/dL Low 3.4-4.8 [facility] Serum or plasma albumin/glob ulin mass ratioOrdered By: Isha Zurita on 07-30-2024 Albumin/Globulin [Mass ratio] 1.0 {ratio} 0.9-2.4 [facility] Serum or plasma alkaline marisol sphatase measurementOrdered By: Isha Zurita on 07-30-2024 ALP [Catalytic activity/Vol] 95 U/L 40-129 [facility] Total proteinOrdered By: Suzette Zurita on 07-30-2024 Protein [Mass/Vol] 5.8 g/dL Low 5.9-8.4 [facility] 12 Lead EKGon 07-29-2024 12 Lead EKG Normal [facility] 36on 07-29-2024 36 S: Patient's spouse [...] result.) Protocols used: PCP Call - No [facility] Activated partial thrombopla stin time (aPTT) in platelet poor plasma by coagulation aOrdered By: Andre Ferreira on 07-29-2024 aPTT Coag (PPP) [Time] 30.0 s 24.1-36.2 [facility] Bilirubin Test strip Ql (U)O rdered By: Andre Ferreira on 07-29-2024 Bilirubin Ql (U) Negative Negative [facility] Blood cultureOrdered By: Adama Ferreira on 07-29-2024 Bacteria identified Cx Nom (Bld) No growth in 5 days. [facility] Bacteria identified Cx Nom (Bld) No growth in 5 days. [facility] CBC W/Diff, Automatedon 05-0 2-2025 Absolute Lymph 1.10 X10 3/uL Normal 0.83-4.51 [facility] Comment on above: Performed By: #### M 200.1000, L100.0100, L300.4310, L300.3900, L503.6005, L500.4050 ####[facility] [address] [place], [address] Absolute Neut 17.3 X10 3/uL High 2.0-7.7 [facility] Comment on above: Performed By: #### M 200.1000, L100.0100, L300.4310, L300.3900, L503.6005, L500.4050 ####[facility] [address] [place], [address] Basophils/100 WBC (Bld) 0.3 % Normal 0-1 [facility] Comment on above: Performed By: #### M 200.1000, L100.0100, L300.4310, L300.3900, L503.6005, L500.4050 ####[facility] [address] [place], [address] Eosinophils/100 WBC (Bld) 0.4 % Normal 0-5 [facility] Comment on above: Performed By: #### M 200.1000, L100.0100, L300.4310, L300.3900, L503.6005, L500.4050 ####[facility] [address] [place], [address] Erythrocyte distribution width (RBC) [Ratio] 17.1 % High 11.6-14.6 [facility] Comment on above: Performed By: #### M 200.1000, L100.0100, L300.4310, L300.3900, L503.6005, L500.4050 ####[facility] [address] [place], [address] Hematocrit (Bld) [Volume fraction] 39.6 % Low 40-54 [facility] Comment on above: Performed By: #### M 200.1000, L100.0100, L300.4310, L300.3900, L503.6005, L500.4050 ####[facility] [address] [place], [address] Hemoglobin (Bld) [Mass/Vol] 13.0 g/dL Normal 13.0-16.5 [facility] Comment on above: Performed By: #### M 200.1000, L100.0100, L300.4310, L300.3900, L503.6005, L500.4050 ####[facility] [address] [place], [address] IG% 0.900 Normal 0.0-0.9 [facility] Comment on above: Result Comment: IG% - Immature Granulocytes (promyelocytes, myelocytes andmetamyelocytes) > 1% indicates that a LEFT SHIFT is Present. Performed By: #### M 200.1000, L100.0100, L300.4310, L300.3900, L503.6005, L500.4050 ####[facility] [address] [place], [address] Lymphocytes/100 WBC (Bld) 5.5 % Low 19-41 [facility] Comment on above: Performed By: #### M 200.1000, L100.0100, L300.4310, L300.3900, L503.6005, L500.4050 ####[facility] [address] [place], [address] MCH (RBC) [Entitic mass] 29.1 pg Normal 27.0-32.0 [facility] Comment on above: Performed By: #### M 200.1000, L100.0100, L300.4310, L300.3900, L503.6005, L500.4050 ####[facility] [address] [place], [address] MCHC (RBC) [Mass/Vol] 32.8 g/dL Normal 32-36 [facility] Comment on above: Performed By: #### M 200.1000, L100.0100, L300.4310, L300.3900, L503.6005, L500.4050 ####[facility] [address] [place], [address] MCV (RBC) [Entitic vol] 88.6 fL Normal 80-94 [facility] Comment on above: Performed By: #### M 200.1000, L100.0100, L300.4310, L300.3900, L503.6005, L500.4050 ####[facility] [address] [place], [address] Monocytes/100 WBC (Bld) 6.2 % Normal 0-10 [facility] Comment on above: Performed By: #### M 200.1000, L100.0100, L300.4310, L300.3900, L503.6005, L500.4050 ####[facility] [address] [place], [address] Neutrophils/100 WBC (Bld) 86.7 % High 47-70 [facility] Comment on above: Performed By: #### M 200.1000, L100.0100, L300.4310, L300.3900, L503.6005, L500.4050 ####[facility] [address] [place], [address] Nucleated RBC (Bld) [#/Vol] 0 10*3/uL Normal 0-5 [facility] Comment on above: Performed By: #### M 200.1000, L100.0100, L300.4310, L300.3900, L503.6005, L500.4050 ####[facility] [address] [place], [address] Platelet mean volume (Bld) [Entitic vol] 9.8 fL Normal 6.2-12.0 [facility] Comment on above: Performed By: #### M 200.1000, L100.0100, L300.4310, L300.3900, L503.6005, L500.4050 ####[facility] [address] [place], [address] Platelets (Bld) [#/Vol] 309 10*3/uL Normal 150-450 [facility] Comment on above: Performed By: #### M 200.1000, L100.0100, L300.4310, L300.3900, L503.6005, L500.4050 ####[facility] [address] [place], [address] RBC (Bld) [#/Vol] 4.47 10*6/uL Low 4.6-6.2 [facility] Comment on above: Performed By: #### M 200.1000, L100.0100, L300.4310, L300.3900, L503.6005, L500.4050 ####[facility] [address] [place], [address] RDW SD 55.2 fl High 35.1-43.9 [facility] Comment on above: Performed By: #### M 200.1000, L100.0100, L300.4310, L300.3900, L503.6005, L500.4050 ####[facility] [address] [place], [address] WBC (Bld) [#/Vol] 19.9 10*3/uL High 4.4-11.0 [facility] Comment on above: Performed By: #### M 200.1000, L100.0100, L300.4310, L300.3900, L503.6005, L500.4050 ####[facility] [address] [place], [address] Chest PA and Lateralon 07-29 Chest PA and Lateral Normal [facility] Comprehensive Metabolic Prof ilon 07-29-2024 Albumin [Mass/Vol] 3.4 g/dL Normal 3.4-4.8 [facility] Comment on above: Performed By: #### M 200.1000, L100.0100, L300.4310, L300.3900, L503.6005, L500.4050 ####[facility] [address] [place], [address] Albumin/Globulin [Mass ratio] 0.8 {ratio} Low 0.9-2.4 [facility] Comment on above: Performed By: #### M 200.1000, L100.0100, L300.4310, L300.3900, L503.6005, L500.4050 ####[facility] [address] [place], [address] ALK PHOS 119 U/L Normal 40-129 [facility] Comment on above: Performed By: #### M 200.1000, L100.0100, L300.4310, L300.3900, L503.6005, L500.4050 ####[facility] [address] [place], [address] ALT [Catalytic activity/Vol] 20 U/L Normal <=46 [facility] Comment on above: Performed By: #### M 200.1000, L100.0100, L300.4310, L300.3900, L503.6005, L500.4050 ####[facility] [address] [place], [address] AST [Catalytic activity/Vol] 15 U/L Normal <=37 [facility] Comment on above: Performed By: #### M 200.1000, L100.0100, L300.4310, L300.3900, L503.6005, L500.4050 ####[facility] [address] [place], [address] Bilirubin [Mass/Vol] 0.24 mg/dL Normal 0.00-1.30 [facility] Comment on above: Performed By: #### M 200.1000, L100.0100, L300.4310, L300.3900, L503.6005, L500.4050 ####[facility] [address] [place], [address] BUN/CRE 14.8 RATIO Normal 10-20 [facility] Comment on above: Performed By: #### M 200.1000, L100.0100, L300.4310, L300.3900, L503.6005, L500.4050 ####[facility] [address] [place], [address] Calcium [Mass/Vol] 9.2 mg/dL Normal 7.6-11.0 [facility] Comment on above: Performed By: #### M 200.1000, L100.0100, L300.4310, L300.3900, L503.6005, L500.4050 ####[facility] [address] [place], [address] Chloride [Moles/Vol] 104 mmol/L Normal 98-108 [facility] Comment on above: Performed By: #### M 200.1000, L100.0100, L300.4310, L300.3900, L503.6005, L500.4050 ####[facility] [address] [place], [address] CO2 [Moles/Vol] 22.9 mmol/L Normal 21.0-32.0 [facility] Comment on above: Performed By: #### M 200.1000, L100.0100, L300.4310, L300.3900, L503.6005, L500.4050 ####[facility] [address] [place], [address] Creatinine [Mass/Vol] 0.83 mg/dL Normal 0.70-1.20 [facility] Comment on above: Performed By: #### M 200.1000, L100.0100, L300.4310, L300.3900, L503.6005, L500.4050 ####[facility] [address] [place], [address] ECRCL 95.77 ml/min Normal 50-250 [facility] Comment on above: Performed By: #### M 200.1000, L100.0100, L300.4310, L300.3900, L503.6005, L500.4050 ####[facility] [address] [place], [address] GAP 13 Normal 5-15 [facility] Comment on above: Performed By: #### M 200.1000, L100.0100, L300.4310, L300.3900, L503.6005, L500.4050 ####[facility] [address] [place], [address] GFR/1.73 sq M.predicted among non-blacks MDRD (S/P/Bld) [Vol rate/Area] 96 mL/min/{1.73_m2} Normal >60 [facility] Comment on above: Result Comment: mL/m in/1.73m2 CKD-EPI Creatinine Equation (2020) Performed By: #### M 200.1000, L100.0100, L300.4310, L300.3900, L503.6005, L500.4050 ####[facility] [address] [place], [address] Globulin (S) [Mass/Vol] 4.3 g/dL High 2.2-4.2 [facility] Comment on above: Performed By: #### M 200.1000, L100.0100, L300.4310, L300.3900, L503.6005, L500.4050 ####[facility] [address] [place], [address] Glucose [Mass/Vol] 183 mg/dL High 70-99 [facility] Comment on above: Performed By: #### M 200.1000, L100.0100, L300.4310, L300.3900, L503.6005, L500.4050 ####[facility] [address] [place], [address] Potassium [Moles/Vol] 3.8 mmol/L Normal 3.3-5.1 [facility] Comment on above: Performed By: #### M 200.1000, L100.0100, L300.4310, L300.3900, L503.6005, L500.4050 ####[facility] [address] [place], [address] Sodium [Moles/Vol] 140 mmol/L Normal 133-145 [facility] Comment on above: Performed By: #### M 200.1000, L100.0100, L300.4310, L300.3900, L503.6005, L500.4050 ####[facility] [address] [place], [address] T PROT 7.8 g/dL Normal 5.9-8.4 [facility] Comment on above: Performed By: #### M 200.1000, L100.0100, L300.4310, L300.3900, L503.6005, L500.4050 ####[facility] [address] [place], [address] Urea nitrogen [Mass/Vol] 12 mg/dL Normal 4-19 [facility] Comment on above: Performed By: #### M 200.1000, L100.0100, L300.4310, L300.3900, L503.6005, L500.4050 ####[facility] [address] [place], [place], [id number] Emergency Department Summary on 07-29-2024 Emergency Department Summary Normal [facility] Epithelial cells.squamous LM Ql (Urine sed)Ordered By: Andre Ferreira on 07-29-2024 Epithelial cells.squamous LM.HPF (Urine sed) [#/Area] 0 /[HPF] 0-5 [facility] Glucose Ql (U)Ordered By: Emeka Ferreira on 07-29-2024 Glucose (U) [Mass/Vol] 250 mg/dL High Normal [facility] H AND P Exam - Hospitaliston 07-29-2024 H&P Exam - Hospitalist Normal [facility] Influenza virus A and B and SARS-CoV-2 (COVID-19) and Respiratory syncytial virus RNAOrdered By: Andre Ferreira on 07-29-2024 SARS-CoV-2 (COVID-19) RNA IMER+probe Ql (Unsp spec) [facility] International normalized rat io (INR) calculationOrdered By: Andre Ferreira on 07-29-2024 INR Coag (Bld) [Relative time] 1.0 {INR} [facility] Ketones Test strip Ql (U)Ord ered By: Andre Ferreira on 07-29-2024 Ketones Ql (U) 5 mg/dl High Negative [facility] Lactic Acidon 07-29-2024 Lactate [Moles/Vol] 3.0 mmol/L Invalid Interpretation Code 0.0-2.0 [facility] Comment on above: Order Comment: Y Result Comment: Crit ical Result(s) Called DTENNANT at: 0 by:VILMA??Results read back by same. Performed By: #### M 200.1000, L100.0100, L300.4310, L300.3900, L503.6005, L500.4050 ####[facility] [address] [place], [address] M100.678on 07-29-2024 M100.678 Pending SARS-CoV-2 (COVID 19) Negative INFLUENZA A Negative INFLUENZA B Negative RSV PCR Negative Normal [facility] Comment on above: Performed By: #### M 100.678 ####[facility] [address] [place], [address] Microscopic analysis of urin e for red blood cells (RBC)Ordered By: Andre Ferreira on 07-29-2024 Microscopic analysis of urine for red blood cells (RBC) 10-25 SEEN /hpf 0-5 [facility] Urine RBC 10-25 SEEN /hpf 0-5 [facility] Mucus LM Ql (Urine sed)Order ed By: Andre Ferreira on 07-29-2024 Mucus Ql (Urine sed) 0 SEEN /hpf [facility] Nitrite Test strip Ql (U)Ord ered By: Andre Ferreira on 07-29-2024 Nitrite Ql (U) Positive High Negative [facility] Partial Thromboplast Timeon 07-29-2024 aPTT Coag (Bld) [Time] 30.0 s Normal 24.1-36.2 [facility] Comment on above: Performed By: #### M 200.1000, L100.0100, L300.4310, L300.3900, L503.6005, L500.4050 ####[facility] [address] [place], [address] Protein Test strip Ql (U)Ord ered By: Andre Ferreira on 07-29-2024 Protein Ql (U) 100 mg/dl High Negative [facility] Prothrombin Time w/INRon INR Coag (PPP) [Relative time] 1.0 {INR} Normal [facility] Comment on above: Performed By: #### M 200.1000, L100.0100, L300.4310, L300.3900, L503.6005, L500.4050 ####[facility] [address] [place], [address] PT Coag (PPP) [Time] 13.7 s Normal 11.7-14.9 [facility] Comment on above: Performed By: #### M 200.1000, L100.0100, L300.4310, L300.3900, L503.6005, L500.4050 ####[facility] [address] [place], [address] Prothrombin timeOrdered By: Andre Ferreira on 07-29-2024 PT Coag (PPP) [Time] 13.7 s 11.7-14.9 [facility] Squamous epithelial cells de tection in urine sediment by light microscopyOrdered By: Andre Ferreira on 07-29-2024 Epithelial cells.squamous LM Ql (Urine sed) 0-5 SEEN /hpf 0-5 [facility] Urinalysis, Completeon 07-29 EPI,SQUAMOUS 0-5 SEEN Normal 0-5 [facility] Comment on above: Order Comment: LACIE CTOR TO SPECIFY Performed By: #### L 400.0001, M100.2200 ####[facility] [address] [place], [address] BACTERIA 3+ /hpf Normal None Seen [facility] Comment on above: Order Comment: LACIE CTOR TO SPECIFY Performed By: #### L 400.0001, M100.2200 ####[facility] [address] [place], [address] RBC 10-25 SEEN Normal 0-5 [facility] Comment on above: Order Comment: LACIE CTOR TO SPECIFY Performed By: #### L 400.0001, M100.2200 ####[facility] [address] [place], [address] WBC >100 SEEN Normal 0-5 [facility] Comment on above: Order Comment: LACIE CTOR TO SPECIFY Performed By: #### L 400.0001, M100.2200 ####[facility] [address] [place], [address] Mucus Ql (Urine sed) 0 SEEN Normal [facility] Comment on above: Order Comment: LACIE CTOR TO SPECIFY Performed By: #### L 400.0001, M100.2200 ####[facility] [address] [place], [address] Urine blood detectionOrdered By: Andre Ferreira on 07-29-2024 Urine Occult Blood 250 /ul High Negative [facility] Urine clarityOrdered By: Adama Ferreira on 07-29-2024 Clarity (U) Turbid Clear [facility] Urine color determinationOrd ered By: Andre Ferreira on 07-29-2024 Color (U) Yellow Yellow [facility] Urine cultureOrdered By: Adama Ferreira on 07-29-2024 Bacteria identified Cx Nom (U) Klebsiella oxytoca Abnormal [facility] Bacteria identified Cx Nom (U) Citrobacter freundii Abnormal [facility] Bacteria identified Cx Nom (U) Staphylococcus aureus Abnormal [facility] Urine glucose detectionOrder ed By: Andre Ferreira on 07-29-2024 Glucose Ql (U) 250 mg/dl High Normal [facility] Urine leukocyte esterase det ection by dipstickOrdered By: Andre Ferreira on 07-29-2024 Leukocyte esterase Test strip Ql (U) 500 /ul High Negative [facility] Urine pHOrdered By: Andre tyson on 07-29-2024 pH (U) 6.0 [pH] 5.0 - 8.0 [facility] Urine sediment bacteria coun t by microscopy (number/high power field)Ordered By: Andre Ferreira on 07-29-2024 Bacteria LM.HPF (Urine sed) [#/Area] 3 /[HPF] None Seen [facility] Urine specific gravity measu rementOrdered By: Andre Ferreira on 07-29-2024 Specific gravity (U) [Rel density] 1.015 1.002-1.030 [facility] Urine urobilinogen measureme ntOrdered By: Andre Ferreira on 07-29-2024 Urobilinogen Ql (U) Normal mg/dl Normal [facility] Urobilinogen Ql (U)Ordered B y: Andre Ferreira on 07-29-2024 Urine Urobilinogen Normal mg/dl Normal [facility] White blood cell countOrdere d By: Andre Ferreira on 07-29-2024 Urine WBC >100 SEEN /hpf 0-5 [facility] White blood cell count >100 SEEN /hpf 0-5 [facility] aPTT Coag (PPP) [Time]Ordere d By: Andre Ferreira on 07-29-2024 aPTT Coag (Bld) [Time] 30.0 s 24.1-36.2 [facility] LDL, Directon 07-13-2024 Cholesterol in LDL [Mass/Vol] 114 mg/dL High 0-99 [facility] Comment on above: Result Comment: Perf ormed at: - [facility] [address] [id number] Director: Rayo Wilkinson PhD, Phone: [phone] Performed By: #### L 3300.4490, L100.0100, L501.23713, L500.4100, L500.4050, L506.0400, L501.9520, L501.9910 ####[facility] [address] [place], [place], [id number] COMMENT TNP Normal . [facility] Comment on above: Performed By: #### L 3300.4490, L100.0100, L501.83104, L500.4100, L500.4050, L506.0400, L501.9520, L501.9910 ####[facility] [address] [place], [place], [id number] Absolute lymphocyte countOrd ered By: Brian Cardona on 07-11-2024 Lymphocytes Auto (Unsp spec) [#/Vol] 2.11 10*3/uL 0.83-4.51 [facility] Absolute neutrophil countOrd ered By: Brian Cardona on 07-11-2024 Neutrophils (Bld) [#/Vol] 5.4 10*3/uL 2.0-7.7 [facility] Anion gap in Serum or Plasma Ordered By: Brian Cardona on 07-11-2024 Anion gap [Moles/Vol] 13 mmol/L 5-15 [facility] Automated lymphocyte count a s percentage of total leukocytesOrdered By: Brian Cardona on 07-11-2024 Lymphocytes/100 WBC Auto (Unsp spec) 23.9 % 19-41 [facility] BUN/creatinine ratioOrdered By: Brian Cardona on 07-11-2024 Urea nitrogen/Creatinine [Mass ratio] 15.1 mg/mg 10- [facility] Basophil percentageOrdered B y: Brian Cardona on 07-11-2024 Basophils/100 WBC (Bld) 0.8 % 0-1 [facility] Bilirubin, totalOrdered By: Brian Cardona on 07-11-2024 Bilirubin [Mass/Vol] 0.22 mg/dL 0.00-1.30 [facility] CBC W/Diff, Automatedon 06-28-2024 Absolute Lymph 2.11 X10 3/uL Normal 0.83-4.51 [facility] Comment on above: Performed By: #### L 3300.4490, L100.0100, L501.80305, L500.4100, L500.4050, L506.0400, L501.9520, L501.9910 ####[facility] [address] [place], [address] Absolute Neut 5.4 X10 3/uL Normal 2.0-7.7 [facility] Comment on above: Performed By: #### L 3300.4490, L100.0100, L501.06965, L500.4100, L500.4050, L506.0400, L501.9520, L501.9910 ####[facility] [address] [place], [address] Basophils/100 WBC (Bld) 0.8 % Normal 0-1 [facility] Comment on above: Performed By: #### L 3300.4490, L100.0100, L501.41796, L500.4100, L500.4050, L506.0400, L501.9520, L501.9910 ####[facility] [address] [place], [address] Eosinophils/100 WBC (Bld) 3.7 % Normal 0-5 [facility] Comment on above: Performed By: #### L 3300.4490, L100.0100, L501.87715, L500.4100, L500.4050, L506.0400, L501.9520, L501.9910 ####[facility] [address] [place], [address] Erythrocyte distribution width (RBC) [Ratio] 16.9 % High 11.6-14.6 [facility] Comment on above: Performed By: #### L 3300.4490, L100.0100, L501.64780, L500.4100, L500.4050, L506.0400, L501.9520, L501.9910 ####[facility] [address] [place], [address] Hematocrit (Bld) [Volume fraction] 42.1 % Normal 40-54 [facility] Comment on above: Performed By: #### L 3300.4490, L100.0100, L501.56220, L500.4100, L500.4050, L506.0400, L501.9520, L501.9910 ####[facility] [address] [place], [address] Hemoglobin (Bld) [Mass/Vol] 13.6 g/dL Normal 13.0-16.5 [facility] Comment on above: Performed By: #### L 3300.4490, L100.0100, L501.18135, L500.4100, L500.4050, L506.0400, L501.9520, L501.9910 ####[facility] [address] [place], [address] IG% 0.800 Normal 0.0-0.9 [facility] Comment on above: Result Comment: IG% - Immature Granulocytes (promyelocytes, myelocytes andmetamyelocytes) > 1% indicates that a LEFT SHIFT is Present. Performed By: #### L 3300.4490, L100.0100, L501.05359, L500.4100, L500.4050, L506.0400, L501.9520, L501.9910 ####[facility] [address] [place], [address] Lymphocytes/100 WBC (Bld) 23.9 % Normal 19-41 [facility] Comment on above: Performed By: #### L 3300.4490, L100.0100, L501.96707, L500.4100, L500.4050, L506.0400, L501.9520, L501.9910 ####[facility] [address] [place], [address] MCH (RBC) [Entitic mass] 28.9 pg Normal 27.0-32.0 [facility] Comment on above: Performed By: #### L 3300.4490, L100.0100, L501.66277, L500.4100, L500.4050, L506.0400, L501.9520, L501.9910 ####[facility] [address] [place], [address] MCHC (RBC) [Mass/Vol] 32.3 g/dL Normal 32-36 [facility] Comment on above: Performed By: #### L 3300.4490, L100.0100, L501.92180, L500.4100, L500.4050, L506.0400, L501.9520, L501.9910 ####[facility] [address] [place], [address] MCV (RBC) [Entitic vol] 89.4 fL Normal 80-94 [facility] Comment on above: Performed By: #### L 3300.4490, L100.0100, L501.18111, L500.4100, L500.4050, L506.0400, L501.9520, L501.9910 ####[facility] [address] [place], [address] Monocytes/100 WBC (Bld) 10.2 % High 0-10 [facility] Comment on above: Performed By: #### L 3300.4490, L100.0100, L501.36071, L500.4100, L500.4050, L506.0400, L501.9520, L501.9910 ####[facility] [address] [place], [address] Neutrophils/100 WBC (Bld) 60.6 % Normal 47-70 [facility] Comment on above: Performed By: #### L 3300.4490, L100.0100, L501.21649, L500.4100, L500.4050, L506.0400, L501.9520, L501.9910 ####[facility] [address] [place], [address] Nucleated RBC (Bld) [#/Vol] 0 10*3/uL Normal 0-5 [facility] Comment on above: Performed By: #### L 3300.4490, L100.0100, L501.03772, L500.4100, L500.4050, L506.0400, L501.9520, L501.9910 ####[facility] [address] [place], [address] Platelet mean volume (Bld) [Entitic vol] 9.4 fL Normal 6.2-12.0 [facility] Comment on above: Performed By: #### L 3300.4490, L100.0100, L501.77823, L500.4100, L500.4050, L506.0400, L501.9520, L501.9910 ####[facility] [address] [place], [address] Platelets (Bld) [#/Vol] 275 10*3/uL Normal 150-450 [facility] Comment on above: Performed By: #### L 3300.4490, L100.0100, L501.96675, L500.4100, L500.4050, L506.0400, L501.9520, L501.9910 ####[facility] [address] [place], [place], [phone]) RBC (Bld) [#/Vol] 4.71 10*6/uL Normal 4.6-6.2 [facility] Comment on above: Performed By: #### L 3300.4490, L100.0100, L501.30822, L500.4100, L500.4050, L506.0400, L501.9520, L501.9910 ####[facility] [address] [place], [address] RDW SD 55.3 fl High 35.1-43.9 [facility] Comment on above: Performed By: #### L 3300.4490, L100.0100, L501.73894, L500.4100, L500.4050, L506.0400, L501.9520, L501.9910 ####[facility] [address] [place], [place], [phone] WBC (Bld) [#/Vol] 8.8 10*3/uL Normal 4.4-11.0 [facility] Comment on above: Performed By: #### L 3300.4490, L100.0100, L501.67418, L500.4100, L500.4050, L506.0400, L501.9520, L501.9910 ####[facility] [address] [place], [place], [phone] Calculated very low density lipoprotein (VLDL) cholesterol measurementOrdered By: Brian Cardona on 07-11-2024 Calculated very low density lipoprotein (VLDL) cholesterol measurement 64 mg/dL High 5-40 [facility] VLDL Cholesterol 64 mg/dL High 5-40 [facility] Carbon dioxide, total [Moles /volume] in Central venous bloodOrdered By: Brian Cardona on 07-11-2024 CO2 [Moles/Vol] 21.6 mmol/L 21.0-32.0 [facility] Chloride assayOrdered By: Dav Cardona on 07-11-2024 Chloride [Moles/Vol] 105 mmol/L 98-108 [facility] Cholesterol in LDL Direct as say [Mass/Vol]Ordered By: Brian Cardona on 07-11-2024 Cholesterol in LDL [Mass/Vol] 114 mg/dL High 0-99 [facility] Comment on above: Performed at: [facility] [address] [id number] Director: Rayo Wilkinson PhD, Phone: [phone] LDL Cholesterol Direct 114 mg/dL High 0-99 [facility] Comment on above: Performed at: [employer] [facility] [address] [place] [id number] Director: Rayo Wilkinson PhD, Phone: [phone] Comprehensive Metabolic Prof ilon 07-11-2024 Albumin [Mass/Vol] 3.7 g/dL Normal 3.4-4.8 [facility] Comment on above: Performed By: #### L 3300.4490, L100.0100, L501.00091, L500.4100, L500.4050, L506.0400, L501.9520, L501.9910 ####[facility] [address] [place], [place], [id number] Albumin/Globulin [Mass ratio] 1.1 {ratio} Normal 0.9-2.4 [facility] Comment on above: Performed By: #### L 3300.4490, L100.0100, L501.50560, L500.4100, L500.4050, L506.0400, L501.9520, L501.9910 ####[facility] [address] [place], [address] ALK PHOS 114 U/L Normal 40-129 [facility] Comment on above: Performed By: #### L 3300.4490, L100.0100, L501.98516, L500.4100, L500.4050, L506.0400, L501.9520, L501.9910 ####[facility] [address] [place], [address] ALT [Catalytic activity/Vol] 36 U/L Normal <=46 [facility] Comment on above: Performed By: #### L 3300.4490, L100.0100, L501.60930, L500.4100, L500.4050, L506.0400, L501.9520, L501.9910 ####[facility] [address] [place], [address] AST [Catalytic activity/Vol] 32 U/L Normal <=37 [facility] Comment on above: Performed By: #### L 3300.4490, L100.0100, L501.23509, L500.4100, L500.4050, L506.0400, L501.9520, L501.9910 ####[facility] [address] [place], [address] Bilirubin [Mass/Vol] 0.22 mg/dL Normal 0.00-1.30 [facility] Comment on above: Performed By: #### L 3300.4490, L100.0100, L501.60043, L500.4100, L500.4050, L506.0400, L501.9520, L501.9910 ####[facility] [address] [place], [address] BUN/CRE 15.1 RATIO Normal 10-20 [facility] Comment on above: Performed By: #### L 3300.4490, L100.0100, L501.36613, L500.4100, L500.4050, L506.0400, L501.9520, L501.9910 ####[facility] [address] [place], [address] Calcium [Mass/Vol] 9.2 mg/dL Normal 7.6-11.0 [facility] Comment on above: Performed By: #### L 3300.4490, L100.0100, L501.84449, L500.4100, L500.4050, L506.0400, L501.9520, L501.9910 ####[facility] [address] [place], [address] Chloride [Moles/Vol] 105 mmol/L Normal 98-108 [facility] Comment on above: Performed By: #### L 3300.4490, L100.0100, L501.78355, L500.4100, L500.4050, L506.0400, L501.9520, L501.9910 ####[facility] [address] [place], [address] CO2 [Moles/Vol] 21.6 mmol/L Normal 21.0-32.0 [facility] Comment on above: Performed By: #### L 3300.4490, L100.0100, L501.53834, L500.4100, L500.4050, L506.0400, L501.9520, L501.9910 ####[facility] [address] [place], [address] Creatinine [Mass/Vol] 0.64 mg/dL Low 0.70-1.20 [facility] Comment on above: Performed By: #### L 3300.4490, L100.0100, L501.88681, L500.4100, L500.4050, L506.0400, L501.9520, L501.9910 ####[facility] [address] [place], [address] GAP 13 Normal 5-15 [facility] Comment on above: Performed By: #### L 3300.4490, L100.0100, L501.00315, L500.4100, L500.4050, L506.0400, L501.9520, L501.9910 ####[facility] [address] [place], [address] GFR/1.73 sq M.predicted among non-blacks MDRD (S/P/Bld) [Vol rate/Area] 104 mL/min/{1.73_m2} Normal >60 [facility] Comment on above: Result Comment: mL/m in/1.73m2 CKD-EPI Creatinine Equation (2020) Performed By: #### L 3300.4490, L100.0100, L501.39850, L500.4100, L500.4050, L506.0400, L501.9520, L501.9910 ####[facility] [address] [place], [address] Globulin (S) [Mass/Vol] 3.5 g/dL Normal 2.2-4.2 [facility] Comment on above: Performed By: #### L 3300.4490, L100.0100, L501.58247, L500.4100, L500.4050, L506.0400, L501.9520, L501.9910 ####[facility] [address] [place], [address] Glucose [Mass/Vol] 91 mg/dL Normal 70-99 [facility] Comment on above: Performed By: #### L 3300.4490, L100.0100, L501.42009, L500.4100, L500.4050, L506.0400, L501.9520, L501.9910 ####[facility] [address] [place], [address] Potassium [Moles/Vol] 4.2 mmol/L Normal 3.3-5.1 [facility] Comment on above: Performed By: #### L 3300.4490, L100.0100, L501.90238, L500.4100, L500.4050, L506.0400, L501.9520, L501.9910 ####[facility] [address] [place], [address] Sodium [Moles/Vol] 139 mmol/L Normal 133-145 [facility] Comment on above: Performed By: #### L 3300.4490, L100.0100, L501.97215, L500.4100, L500.4050, L506.0400, L501.9520, L501.9910 ####[facility] [address] [place], [place], [phone]) T PROT 7.2 g/dL Normal 5.9-8.4 [facility] Comment on above: Performed By: #### L 3300.4490, L100.0100, L501.82268, L500.4100, L500.4050, L506.0400, L501.9520, L501.9910 ####[facility] [address] [place], [address] Urea nitrogen [Mass/Vol] 10 mg/dL Normal 4-19 [facility] Comment on above: Performed By: #### L 3300.4490, L100.0100, L501.17341, L500.4100, L500.4050, L506.0400, L501.9520, L501.9910 ####[facility] [address] [place], [address] Eosinophil percentageOrdered By: Brian Cardona on 07-11-2024 Eosinophils/100 WBC (Bld) 3.7 % 0-5 [facility] Erythrocyte distribution wid th (RBC) [Ratio]Ordered By: Brian Cardona on 07-11-2024 Erythrocyte distribution width (RBC) [Entitic vol] 55.3 fL High 35.1-43.9 [facility] Erythrocyte distribution wid th ratioOrdered By: Brian Cardona on 07-11-2024 Erythrocyte distribution width (RBC) [Ratio] 16.9 % High 11.6-14.6 [facility] Erythrocyte distribution wid th standard deviationOrdered By: Brian Cardona on 07-11-2024 Erythrocyte distribution width (RBC) [Ratio] 55.3 fl High 35.1-43.9 [facility] Free T3on 07-11-2024 Free T3 [Mass/Vol] 2.0 pg/mL Low 2.18-3.98 [facility] Comment on above: Performed By: #### L 3300.4490, L100.0100, L501.61547, L500.4100, L500.4050, L506.0400, L501.9520, L501.9910 ####[facility] [address] [place], [address] Free W2Oawmtll By: Brian bar on 07-11-2024 Free T3 [Mass/Vol] 2.0 pg/mL Low 2.18-3.98 [facility] Free Triiodothyronine (T3) pg/dL 2.0 pg/mL Low 2.18-3.98 [facility] GFR/1.73 sq M.predicted elias g non-blacks MDRD (S/P/Bld) [Vol rate/Area]Ordered By: Brian Cardona on 07-11-2024 Estimated GFR (MDRD) Non-Af Amer 104 >60 [facility] Comment on above: mL/min/1.73m2 CKD-EP I Creatinine Equation (2020) Glomerular filtration rate ( GFR) estimation/1.73 sq m using serum, plasma, or whole bOrdered By: Brian Cardona on 07-11-2024 GFR/1.73 sq M.predicted among non-blacks MDRD (S/P/Bld) [Vol rate/Area] 104 mL/min/{1.73_m2} >60 [facility] Comment on above: mL/min/1.73m2 CKD-EP I Creatinine Equation (2020) Hematocrit Auto (Bld) [Volum e fraction]Ordered By: Brian Cardona on 07-11-2024 Hematocrit (Bld) [Volume fraction] 42.1 % 40-54 [facility] Hemoglobin measurementOrdere d By: Brian Cardona on 07-11-2024 Hemoglobin (Bld) [Mass/Vol] 13.6 g/dL 13.0-16.5 [facility] Immature granulocytes/100 WB C Auto (Bld)Ordered By: Brian Cardona on 07-11-2024 Immature granulocytes/100 WBC (Bld) 0.800 % 0.0-0.9 [facility] Comment on above: IG% - Immature Granu locytes (promyelocytes, myelocytes and metamyelocytes) > 1% indicates that a LEFT SHIFT is Present. LDL calc ser/plasOrdered By: Brian Cardona on 07-11-2024 Cholesterol in LDL [Mass/Vol] 88 mg/dL [facility] Comment on above: Abwmchtrdc=514-702 m g/dL & Higher Mmvk=618 mg/dL or greater LDL Cholesterol, Calculated 88 mg/dL [facility] Comment on above: Pcxwnymaos=255-833 m g/dL & Higher Fgdx=201 mg/dL or greater Laboratory - Chemistry and C hemistry - challengeOrdered By: Brian Cardona on 07-11-2024 AST [Catalytic activity/Vol] 32 U/L <38 [facility] Laboratory - Miscellaneous t estsOrdered By: Brian Cardona on 07-11-2024 Service comment (Unsp spec) [Interp] TNP [facility] Comment on above: Test not performed Lipid Profileon 07-11-2024 CHOL:HDL 5.07 Normal [facility] Comment on above: Performed By: #### L 3300.4490, L100.0100, L501.20753, L500.4100, L500.4050, L506.0400, L501.9520, L501.9910 ####[facility] [address] [place], [address] Cholesterol [Mass/Vol] 189 mg/dL Normal <=200 [facility] Comment on above: Result Comment: Chol esterol level, Desirable <200 mg/dLBorderline high cholesterol 200-239 mg/dLHigh cholesterol >=240 mg/dLRecommendations of the NCEP Adult Treatment Panel for thefollowing risk-cutoff thresholds for the [place] Americanpulation. Performed By: #### L 3300.4490, L100.0100, L501.59911, L500.4100, L500.4050, L506.0400, L501.9520, L501.9910 ####[facility] [address] [place], [address] Cholesterol in HDL [Mass/Vol] 37 mg/dL Low [facility] Comment on above: Result Comment: Lilly onal Cholesterol Education Program (NCEP) guidelines:<40 mg/dL: Low HDL-cholesterol (major risk factor for CHD)>= 60 mg/dL: High HDL-cholesterol (negative risk factor forCHD)HDL-cholesterol is affected by a number of factors, e.g.smoking, exercise, hormones, sex and age. Performed By: #### L 3300.4490, L100.0100, L501.56149, L500.4100, L500.4050, L506.0400, L501.9520, L501.9910 ####[facility] [address] [place], [place], [phone]) Cholesterol in LDL [Mass/Vol] 88 mg/dL Normal [facility] Comment on above: Result Comment: Bord weuizm=820-926 mg/dL Higher Kspz=353 mg/dL or greater Performed By: #### L 3300.4490, L100.0100, L501.09109, L500.4100, L500.4050, L506.0400, L501.9520, L501.9910 ####[facility] [address] [place], [address] Cholesterol in VLDL [Mass/Vol] 64 mg/dL High 5-40 [facility] Comment on above: Performed By: #### L 3300.4490, L100.0100, L501.45885, L500.4100, L500.4050, L506.0400, L501.9520, L501.9910 ####[facility] [address] [place], [place], [address] Triglyceride [Mass/Vol] 318 mg/dL High [facility] Comment on above: Result Comment: The drugs N-Acetylcysteine and Metamizole may falselydepress this assay.Normal range: <150 mg/dLBorderline High: 150-199 mg/dLHigh: 200-499 mg/dLVery High: >500 mg/dL Performed By: #### L 3300.4490, L100.0100, L501.66483, L500.4100, L500.4050, L506.0400, L501.9520, L501.9910 ####[facility] [address] [place], [place], [id number] Lymphocytes Auto (Unsp spec) [#/Vol]Ordered By: Brian Cardona on 07-11-2024 Lymphocytes (Bld) [#/Vol] 2.11 10*3/uL 0.83-4.51 [facility] Lymphocytes/100 WBC Auto (Un sp spec)Ordered By: Brian Cardona on 07-11-2024 Lymphocytes/100 WBC (Bld) 23.9 % 19-41 [facility] MCV (mean corpuscular volume ) determinationOrdered By: Brian Cardona on 07-11-2024 MCV (RBC) [Entitic vol] 89.4 fL 80-94 [facility] Mean corpuscular hemoglobin (MCH) determinationOrdered By: Brian Cardona on 07-11-2024 MCH (RBC) [Entitic mass] 28.9 pg 27.0-32.0 [facility] Mean corpuscular hemoglobin concentration (MCHC) determinationOrdered By: Brian Cardona on 07-11-2024 MCHC (RBC) [Mass/Vol] 32.3 g/dL 32-36 [facility] Mean platelet volume determi nationOrdered By: Brian Cardona on 07-11-2024 Platelet mean volume (Bld) [Entitic vol] 9.4 fL 6.2-12.0 [facility] Monocyte percentageOrdered B y: Brian Cardona on 07-11-2024 Monocytes/100 WBC (Bld) 10.2 % High 0-10 [facility] Neutrophil percentageOrdered By: Brian Cardona on 07-11-2024 Neutrophils/100 WBC (Bld) 60.6 % 47-70 [facility] No Panel InformationOrdered By: Brian Cardona on 07-11-2024 32 U/L <38 [facility] Nucleated red blood cell per centageOrdered By: Brian Cardona on 07-11-2024 Nucleated RBC/100 WBC (Bld) [Ratio] 0 % 0-5 [facility] PSA, total screeningOrdered By: Brian Cardona on 07-11-2024 Prostate Specific Antigen Screen 3.78 ng/mL 0.02-4.00 [facility] Comment on above: This test was [...] 07-11-2024 PSA,TOT SCREEN 3.78 ng/mL Normal 0.02-4.00 [facility] Comment on above: Result Comment: This test was performed using the [employer] tPSAmethod. Measured values of a patient??sample can varydepending on the testing procedure used. PSA valuesdetermined on patient samples by different testingprocedures cannot be used interchangeably. If there is achange in PSA assays while monitoring therapy, sequentialtesting should be performed to confirm baseline values. Performed By: #### L 3300.4490, L100.0100, L501.99254, L500.4100, L500.4050, L506.0400, L501.9520, L501.9910 ####[facility] [id number] [place], [address] Platelet countOrdered By: Dav Cardona on 07-11-2024 Platelets (Bld) [#/Vol] 275 10*3/uL 150-450 [facility] Potassium (Unsp spec) [Mass/ Vol]Ordered By: Brian Cardona on 07-11-2024 Potassium [Moles/Vol] 4.2 mmol/L 3.3-5.1 [facility] Potassium measurement (mass/ volume)Ordered By: Brian Cardona on 07-11-2024 Potassium (Unsp spec) [Mass/Vol] 4.2 mmol/L 3.3-5.1 [facility] RBC Auto (Bld) [#/Vol]Ordere d By: Brian Cardona on 07-11-2024 RBC (Bld) [#/Vol] 4.71 10*6/uL 4.6-6.2 [facility] Screening total cholesterol/ high density lipoprotein (HDL) cholesterol ratioOrdered By: Brian Cardona on 07-11-2024 Cholesterol.total/Radha sterol in HDL [Mass ratio] 5.07 {ratio} [facility] Serum creatinine measurement (mass/volume)Ordered By: Brian Cardona on 07-11-2024 Creatinine [Mass/Vol] 0.64 mg/dL Low 0.70-1.20 [facility] Serum globulin measurementOr dered By: Brian Cardona on 07-11-2024 Globulin (S) [Mass/Vol] 3.5 g/dL 2.2-4.2 [facility] Serum glucose measurement (m ass/volume)Ordered By: Brian Cardona on 07-11-2024 Glucose [Mass/Vol] 91 mg/dL 70-99 [facility] Serum or plasma alanine orozco otransferase (ALT) measurementOrdered By: Brian Cardona on 07-11-2024 ALT [Catalytic activity/Vol] 36 U/L <47 [facility] Serum or plasma albumin amrlyn urement (mass/volume)Ordered By: Brian Cardona on 07-11-2024 Albumin [Mass/Vol] 3.7 g/dL 3.4-4.8 [facility] Serum or plasma albumin/glob ulin mass ratioOrdered By: Brian Cardona on 07-11-2024 Albumin/Globulin [Mass ratio] 1.1 {ratio} 0.9-2.4 [facility] Serum or plasma alkaline marisol sphatase measurementOrdered By: Brian Cardona on 07-11-2024 ALP [Catalytic activity/Vol] 114 U/L 40-129 [facility] Serum or plasma calcium marlyn urement (mass/volume)Ordered By: Brian Cardona on 07-11-2024 Calcium [Mass/Vol] 9.2 mg/dL 7.6-11.0 [facility] Serum or plasma cholesterol in HDL measurement (mass/volume)Ordered By: Brian Cardona on 07-11-2024 Cholesterol in HDL [Mass/Vol] 37 mg/dL Low >40 [facility] Comment on above: National Cholesterol Education Program (NCEP) guidelines:<40 mg/dL: Low HDL-cholesterol (major risk factor for CHD)>= 60 mg/dL: High HDL-cholesterol (negative risk factor for CHD)HDL-cholesterol is affected by a number of factors, e.g. smoking, exercise, hormones, sex and age. Serum or plasma cholesterol measurement (mass/volume)Ordered By: Brian Cardona on 07-11-2024 Cholesterol [Mass/Vol] 189 mg/dL <201 [facility] Comment on above: Cholesterol level, D esirable <200 mg/dLBorderline high cholesterol 200-239 mg/dLHigh cholesterol >=240 mg/dLRecommendations of the NCEP Adult Treatment Panel for the following risk-cutoff thresholds for the [place] population. Serum or plasma urea nitroge n measurement (mass/volume)Ordered By: Brian Cardona on 07-11-2024 Urea nitrogen [Mass/Vol] 10 mg/dL 4-19 [facility] Service comment (Unsp spec) [Interp]Ordered By: Brian Cardona on 07-11-2024 LDL Cholesterol Direct Comment TNP [facility] Comment on above: Test not performed Sodium levelOrdered By: Amol Cardona on 07-11-2024 Sodium [Moles/Vol] 139 mmol/L 133-145 [facility] T4 Free Directon 07-11-2024 T4 FREE DIRECT 1.00 ng/dL Normal 0.76-1.46 [facility] Comment on above: Performed By: #### L 3300.4490, L100.0100, L501.69735, L500.4100, L500.4050, L506.0400, L501.9520, L501.9910 ####[facility] [address] [place], [place], [id number] T4 freeOrdered By: Brian bar on 07-11-2024 Free T4 [Mass/Vol] 1.00 ng/dL 0.76-1.46 [facility] TSH DL <= 0.005 mIU/L QnOrde red By: Brian Cardona on 07-11-2024 Thyroid Stimulating Hormone (TSH) 23.100 uIU/mL High 0.300-4.200 [facility] TSH Qn 23.100 uIU/mL High 0.300-4.200 [facility] Thyroid Stim Hormone (TSH)on 07-11-2024 TSH 23.100 uIU/mL High 0.300-4.200 [facility] Comment on above: Performed By: #### L 3300.4490, L100.0100, L501.91602, L500.4100, L500.4050, L506.0400, L501.9520, L501.9910 ####[facility] [address] [place], [place], [address] Total proteinOrdered By: Kaleb Cardona on 07-11-2024 Protein [Mass/Vol] 7.2 g/dL 5.9-8.4 [facility] Triglycerides measurementOrd ered By: Brian Cardona on 07-11-2024 Triglyceride [Mass/Vol] 318 mg/dL High <199 [facility] Comment on above: The drugs N-Acetylcy steine and Metamizole may falsely depress this assay. Normal range: <150 mg/dLBorderline High: 150-199 mg/dLHigh: 200-499 mg/dLVery High: >500 mg/dL White blood cell (WBC) count Ordered By: Brian Cardona on 07-11-2024 WBC (Bld) [#/Vol] 8.8 10*3/uL 4.4-11.0 [facility] Basic Metabolic Profile (BMP )on 06-17-2024 BUN Normal 4-19 [facility] Comment on above: Result Comment: Canc elled via OM: Order cancelled - Patient discharged Performed By: #### L 500.2500, L100.0100 ####[facility] [address] [place], [address] BUN/CRE Normal 10-20 [facility] Comment on above: Result Comment: Canc elled via OM: Order cancelled - Patient discharged Performed By: #### L 500.2500, L100.0100 ####[facility] [address] [place], [address] Calcium Normal 7.6-11.0 [facility] Comment on above: Result Comment: Canc elled via OM: Order cancelled - Patient discharged Performed By: #### L 500.2500, L100.0100 ####[facility] [address] [place], [address] CL Normal 98-108 [facility] Comment on above: Result Comment: Canc elled via OM: Order cancelled - Patient discharged Performed By: #### L 500.2500, L100.0100 ####[facility] [address] [place], [address] CO2 Normal 21.0-32.0 [facility] Comment on above: Result Comment: Canc elled via OM: Order cancelled - Patient discharged Performed By: #### L 500.2500, L100.0100 ####[facility] [address] [place], [address] CREAT,SERUM Normal 0.70-1.20 [facility] Comment on above: Result Comment: Canc elled via OM: Order cancelled - Patient discharged Performed By: #### L 500.2500, L100.0100 ####[facility] [address] [place], [address] eGFR Normal >60 [facility] Comment on above: Result Comment: Canc elled via OM: Order cancelled - Patient discharged Performed By: #### L 500.2500, L100.0100 ####[facility] [address] [place], [address] GAP Normal 5-15 [facility] Comment on above: Result Comment: Canc elled via OM: Order cancelled - Patient discharged Performed By: #### L 500.2500, L100.0100 ####[facility] [address] [place], [address] GLU Normal 70-99 [facility] Comment on above: Result Comment: Canc elled via OM: Order cancelled - Patient discharged Performed By: #### L 500.2500, L100.0100 ####[facility] [address] [place], [address] Potassium Normal 3.3-5.1 [facility] Comment on above: Result Comment: Canc elled via OM: Order cancelled - Patient discharged Performed By: #### L 500.2500, L100.0100 ####[facility] [address] [place], [address] Basic Metabolic Profile (BMP) Normal 133-145 [facility] Comment on above: Result Comment: Canc elled via OM: Order cancelled - Patient discharged Performed By: #### L 500.2500, L100.0100 ####[facility] [address] [place], [address] CBC W/Diff, Automatedon 03-2 Absolute Neut Normal 2.0-7.7 [facility] Comment on above: Result Comment: Canc elled via OM: Order cancelled - Patient discharged Performed By: #### L 500.2500, L100.0100 ####[facility] [address] [place], [address] HCT Normal 40-54 [facility] Comment on above: Result Comment: Canc elled via OM: Order cancelled - Patient discharged Performed By: #### L 500.2500, L100.0100 ####[facility] [address] [place], [address] HGB Normal 13.0-16.5 [facility] Comment on above: Result Comment: Canc elled via OM: Order cancelled - Patient discharged Performed By: #### L 500.2500, L100.0100 ####[facility] [address] [place], [address] MCH Normal 27.0-32.0 [facility] Comment on above: Result Comment: Canc elled via OM: Order cancelled - Patient discharged Performed By: #### L 500.2500, L100.0100 ####[facility] [address] [place], [address] MCHC Normal 32-36 [facility] Comment on above: Result Comment: Canc elled via OM: Order cancelled - Patient discharged Performed By: #### L 500.2500, L100.0100 ####[facility] [address] [place], [address] MCV Normal 80-94 [facility] Comment on above: Result Comment: Canc elled via OM: Order cancelled - Patient discharged Performed By: #### L 500.2500, L100.0100 ####[facility] [address] [place], [address] NEUT% Normal 47-70 [facility] Comment on above: Result Comment: Canc elled via OM: Order cancelled - Patient discharged Performed By: #### L 500.2500, L100.0100 ####[facility] [address] [place], [address] PLT Normal 150-450 [facility] Comment on above: Result Comment: Canc elled via OM: Order cancelled - Patient discharged Performed By: #### L 500.2500, L100.0100 ####[facility] [address] [place], [address] RBC Normal 4.6-6.2 [facility] Comment on above: Result Comment: Canc elled via OM: Order cancelled - Patient discharged Performed By: #### L 500.2500, L100.0100 ####[facility] [address] [place], [address] RDW CV Normal 11.6-14.6 [facility] Comment on above: Result Comment: Canc elled via OM: Order cancelled - Patient discharged Performed By: #### L 500.2500, L100.0100 ####[facility] [address] [place], [address] RDW SD Normal 35.1-43.9 [facility] Comment on above: Result Comment: Canc elled via OM: Order cancelled - Patient discharged Performed By: #### L 500.2500, L100.0100 ####[facility] [address] [place], [address] WBC Normal 4.4-11.0 [facility] Comment on above: Result Comment: Canc elled via OM: Order cancelled - Patient discharged Performed By: #### L 500.2500, L100.0100 ####[facility] [address] [place], [address] Basic Metabolic Profile (BMP )on 06-16-2024 BUN Normal 4- [facility] Comment on above: Result Comment: Canc elled via OM: Order cancelled - Patient discharged Performed By: #### L 100.0100, L500.2500 ####[facility] [address] [place], [address] BUN/CRE Normal - [facility] Comment on above: Result Comment: Canc elled via OM: Order cancelled - Patient discharged Performed By: #### L 100.0100, L500.2500 ####[facility] [address] [place], [address] Calcium Normal 7.6-11.0 [facility] Comment on above: Result Comment: Canc elled via OM: Order cancelled - Patient discharged Performed By: #### L 100.0100, L500.2500 ####[facility] [address] [place], [address] CL Normal 98-108 [facility] Comment on above: Result Comment: Canc elled via OM: Order cancelled - Patient discharged Performed By: #### L 100.0100, L500.2500 ####[facility] [address] [place], [address] CO2 Normal 21.0-32.0 [facility] Comment on above: Result Comment: Canc elled via OM: Order cancelled - Patient discharged Performed By: #### L 100.0100, L500.2500 ####[facility] [address] [place], [address] CREAT,SERUM Normal 0.70-1.20 [facility] Comment on above: Result Comment: Canc elled via OM: Order cancelled - Patient discharged Performed By: #### L 100.0100, L500.2500 ####[facility] [address] [place], [address] eGFR Normal >60 [facility] Comment on above: Result Comment: Canc elled via OM: Order cancelled - Patient discharged Performed By: #### L 100.0100, L500.2500 ####[facility] [address] [place], [address] GAP Normal 5-15 [facility] Comment on above: Result Comment: Canc elled via OM: Order cancelled - Patient discharged Performed By: #### L 100.0100, L500.2500 ####[facility] [address] [place], [address] GLU Normal 70-99 [facility] Comment on above: Result Comment: Canc elled via OM: Order cancelled - Patient discharged Performed By: #### L 100.0100, L500.2500 ####[facility] [address] [place], [address] Potassium Normal 3.3-5.1 [facility] Comment on above: Result Comment: Canc elled via OM: Order cancelled - Patient discharged Performed By: #### L 100.0100, L500.2500 ####[facility] [address] [place], [address] Basic Metabolic Profile (BMP) Normal 133-145 [facility] Comment on above: Result Comment: Canc elled via OM: Order cancelled - Patient discharged Performed By: #### L 100.0100, L500.2500 ####[facility] [address] [place], [address] CBC W/Diff, Automatedon 03-2 0-2024 Absolute Neut Normal 2.0-7.7 [facility] Comment on above: Result Comment: Canc elled via OM: Order cancelled - Patient discharged Performed By: #### L 100.0100, L500.2500 ####[facility] [address] [place], [address] HCT Normal 40-54 [facility] Comment on above: Result Comment: Canc elled via OM: Order cancelled - Patient discharged Performed By: #### L 100.0100, L500.2500 ####[facility] [address] [place], [address] HGB Normal 13.0-16.5 [facility] Comment on above: Result Comment: Canc elled via OM: Order cancelled - Patient discharged Performed By: #### L 100.0100, L500.2500 ####[facility] [address] [place], [address] MCH Normal 27.0-32.0 [facility] Comment on above: Result Comment: Canc elled via OM: Order cancelled - Patient discharged Performed By: #### L 100.0100, L500.2500 ####[facility] [address] [place], [address] MCHC Normal 32-36 [facility] Comment on above: Result Comment: Canc elled via OM: Order cancelled - Patient discharged Performed By: #### L 100.0100, L500.2500 ####[facility] [address] [place], [address] MCV Normal 80-94 [facility] Comment on above: Result Comment: Canc elled via OM: Order cancelled - Patient discharged Performed By: #### L 100.0100, L500.2500 ####[facility] [address] [place], [address] NEUT% Normal 47-70 [facility] Comment on above: Result Comment: Canc elled via OM: Order cancelled - Patient discharged Performed By: #### L 100.0100, L500.2500 ####[facility] [address] [place], [address] PLT Normal 150-450 [facility] Comment on above: Result Comment: Canc elled via OM: Order cancelled - Patient discharged Performed By: #### L 100.0100, L500.2500 ####[facility] [address] [place], [address] RBC Normal 4.6-6.2 [facility] Comment on above: Result Comment: Canc elled via OM: Order cancelled - Patient discharged Performed By: #### L 100.0100, L500.2500 ####[facility] [address] [place], [address] RDW CV Normal 11.6-14.6 [facility] Comment on above: Result Comment: Canc elled via OM: Order cancelled - Patient discharged Performed By: #### L 100.0100, L500.2500 ####[facility] [address] [place], [address] RDW SD Normal 35.1-43.9 [facility] Comment on above: Result Comment: Canc elled via OM: Order cancelled - Patient discharged Performed By: #### L 100.0100, L500.2500 ####[facility] [address] [place], [address] WBC Normal 4.4-11.0 [facility] Comment on above: Result Comment: Canc elled via OM: Order cancelled - Patient discharged Performed By: #### L 100.0100, L500.2500 ####[facility] [address] [place], [address] Basic Metabolic Profile (BMP )on 06-15-2024 BUN Normal 4-19 [facility] Comment on above: Result Comment: Canc elled via OM: Order cancelled - Patient discharged Performed By: #### L 100.0100, L500.2500 ####[facility] [address] [place], [address] BUN/CRE Normal 10-20 [facility] Comment on above: Result Comment: Canc elled via OM: Order cancelled - Patient discharged Performed By: #### L 100.0100, L500.2500 ####[facility] [address] [place], [address] Calcium Normal 7.6-11.0 [facility] Comment on above: Result Comment: Canc elled via OM: Order cancelled - Patient discharged Performed By: #### L 100.0100, L500.2500 ####[facility] [address] [place], [address] CL Normal 98-108 [facility] Comment on above: Result Comment: Canc elled via OM: Order cancelled - Patient discharged Performed By: #### L 100.0100, L500.2500 ####[facility] [address] [place], [address] CO2 Normal 21.0-32.0 [facility] Comment on above: Result Comment: Canc elled via OM: Order cancelled - Patient discharged Performed By: #### L 100.0100, L500.2500 ####[facility] [address] [place], [address] CREAT,SERUM Normal 0.70-1.20 [facility] Comment on above: Result Comment: Canc elled via OM: Order cancelled - Patient discharged Performed By: #### L 100.0100, L500.2500 ####[facility] [address] [place], [address] eGFR Normal >60 [facility] Comment on above: Result Comment: Canc elled via OM: Order cancelled - Patient discharged Performed By: #### L 100.0100, L500.2500 ####[facility] [address] [place], [address] GAP Normal 5-15 [facility] Comment on above: Result Comment: Canc elled via OM: Order cancelled - Patient discharged Performed By: #### L 100.0100, L500.2500 ####[facility] [address] [place], [address] GLU Normal 70-99 [facility] Comment on above: Result Comment: Canc elled via OM: Order cancelled - Patient discharged Performed By: #### L 100.0100, L500.2500 ####[facility] [address] [place], [address] Potassium Normal 3.3-5.1 [facility] Comment on above: Result Comment: Canc elled via OM: Order cancelled - Patient discharged Performed By: #### L 100.0100, L500.2500 ####[facility] [address] [place], [address] Basic Metabolic Profile (BMP) Normal 133-145 [facility] Comment on above: Result Comment: Canc elled via OM: Order cancelled - Patient discharged Performed By: #### L 100.0100, L500.2500 ####[facility] [address] [place], [address] CBC W/Diff, Automatedon 03-1 Absolute Neut Normal 2.0-7.7 [facility] Comment on above: Result Comment: Canc elled via OM: Order cancelled - Patient discharged Performed By: #### L 100.0100, L500.2500 ####[facility] [address] [place], [address] HCT Normal 40-54 [facility] Comment on above: Result Comment: Canc elled via OM: Order cancelled - Patient discharged Performed By: #### L 100.0100, L500.2500 ####[facility] [address] [place], [address] HGB Normal 13.0-16.5 [facility] Comment on above: Result Comment: Canc elled via OM: Order cancelled - Patient discharged Performed By: #### L 100.0100, L500.2500 ####[facility] [address] [place], [address] MCH Normal 27.0-32.0 [facility] Comment on above: Result Comment: Canc elled via OM: Order cancelled - Patient discharged Performed By: #### L 100.0100, L500.2500 ####[facility] [address] [place], [address] MCHC Normal 32-36 [facility] Comment on above: Result Comment: Canc elled via OM: Order cancelled - Patient discharged Performed By: #### L 100.0100, L500.2500 ####[facility] [address] [place], [address] MCV Normal 80-94 [facility] Comment on above: Result Comment: Canc elled via OM: Order cancelled - Patient discharged Performed By: #### L 100.0100, L500.2500 ####[facility] [address] [place], [address] NEUT% Normal 47-70 [facility] Comment on above: Result Comment: Canc elled via OM: Order cancelled - Patient discharged Performed By: #### L 100.0100, L500.2500 ####[facility] [address] [place], [address] PLT Normal 150-450 [facility] Comment on above: Result Comment: Canc elled via OM: Order cancelled - Patient discharged Performed By: #### L 100.0100, L500.2500 ####[facility] [address] [place], [address] RBC Normal 4.6-6.2 [facility] Comment on above: Result Comment: Canc elled via OM: Order cancelled - Patient discharged Performed By: #### L 100.0100, L500.2500 ####[facility] [address] [place], [address] RDW CV Normal 11.6-14.6 [facility] Comment on above: Result Comment: Canc elled via OM: Order cancelled - Patient discharged Performed By: #### L 100.0100, L500.2500 ####[facility] [address] [place], [address] RDW SD Normal 35.1-43.9 [facility] Comment on above: Result Comment: Canc elled via OM: Order cancelled - Patient discharged Performed By: #### L 100.0100, L500.2500 ####[facility] [address] [place], [address] WBC Normal 4.4-11.0 [facility] Comment on above: Result Comment: Canc elled via OM: Order cancelled - Patient discharged Performed By: #### L 100.0100, L500.2500 ####[facility] [address] [place], [address] Basic Metabolic Profile (BMP )on 06-14-2024 BUN Normal 4-19 [facility] Comment on above: Result Comment: Canc elled via OM: Order cancelled - Patient discharged Performed By: #### L 500.2500, L100.0100 ####[facility] [address] [place], [address] BUN/CRE Normal 10-20 [facility] Comment on above: Result Comment: Canc elled via OM: Order cancelled - Patient discharged Performed By: #### L 500.2500, L100.0100 ####[facility] [address] [place], [address] Calcium Normal 7.6-11.0 [facility] Comment on above: Result Comment: Canc elled via OM: Order cancelled - Patient discharged Performed By: #### L 500.2500, L100.0100 ####[facility] [address] [place], [address] CL Normal 98-108 [facility] Comment on above: Result Comment: Canc elled via OM: Order cancelled - Patient discharged Performed By: #### L 500.2500, L100.0100 ####[facility] [address] [place], [address] CO2 Normal 21.0-32.0 [facility] Comment on above: Result Comment: Canc elled via OM: Order cancelled - Patient discharged Performed By: #### L 500.2500, L100.0100 ####[facility] [address] [place], [address] CREAT,SERUM Normal 0.70-1.20 [facility] Comment on above: Result Comment: Canc elled via OM: Order cancelled - Patient discharged Performed By: #### L 500.2500, L100.0100 ####[facility] [address] [place], [address] eGFR Normal >60 [facility] Comment on above: Result Comment: Canc elled via OM: Order cancelled - Patient discharged Performed By: #### L 500.2500, L100.0100 ####[facility] [address] [place], [address] GAP Normal 5-15 [facility] Comment on above: Result Comment: Canc elled via OM: Order cancelled - Patient discharged Performed By: #### L 500.2500, L100.0100 ####[facility] [address] [place], [address] GLU Normal 70-99 [facility] Comment on above: Result Comment: Canc elled via OM: Order cancelled - Patient discharged Performed By: #### L 500.2500, L100.0100 ####[facility] [address] [place], [address] Potassium Normal 3.3-5.1 [facility] Comment on above: Result Comment: Canc elled via OM: Order cancelled - Patient discharged Performed By: #### L 500.2500, L100.0100 ####[facility] [address] [place], [address] Basic Metabolic Profile (BMP) Normal 133-145 [facility] Comment on above: Result Comment: Canc elled via OM: Order cancelled - Patient discharged Performed By: #### L 500.2500, L100.0100 ####[facility] [address] [place], [address] CBC W/Diff, Automatedon - Absolute Neut Normal 2.0-7.7 [facility] Comment on above: Result Comment: Canc elled via OM: Order cancelled - Patient discharged Performed By: #### L 500.2500, L100.0100 ####[facility] [address] [place], [address] HCT Normal 40-54 [facility] Comment on above: Result Comment: Canc elled via OM: Order cancelled - Patient discharged Performed By: #### L 500.2500, L100.0100 ####[facility] [address] [place], [address] HGB Normal 13.0-16.5 [facility] Comment on above: Result Comment: Canc elled via OM: Order cancelled - Patient discharged Performed By: #### L 500.2500, L100.0100 ####[facility] [address] [place], [address] MCH Normal 27.0-32.0 [facility] Comment on above: Result Comment: Canc elled via OM: Order cancelled - Patient discharged Performed By: #### L 500.2500, L100.0100 ####[facility] [address] [place], [address] MCHC Normal 32-36 [facility] Comment on above: Result Comment: Canc elled via OM: Order cancelled - Patient discharged Performed By: #### L 500.2500, L100.0100 ####[facility] [address] [place], [address] MCV Normal 80-94 [facility] Comment on above: Result Comment: Canc elled via OM: Order cancelled - Patient discharged Performed By: #### L 500.2500, L100.0100 ####[facility] [address] [place], [address] NEUT% Normal 47-70 [facility] Comment on above: Result Comment: Canc elled via OM: Order cancelled - Patient discharged Performed By: #### L 500.2500, L100.0100 ####[facility] [address] [place], [address] PLT Normal 150-450 [facility] Comment on above: Result Comment: Canc elled via OM: Order cancelled - Patient discharged Performed By: #### L 500.2500, L100.0100 ####[facility] [address] [place], [address] RBC Normal 4.6-6.2 [facility] Comment on above: Result Comment: Canc elled via OM: Order cancelled - Patient discharged Performed By: #### L 500.2500, L100.0100 ####[facility] [address] [place], [address] RDW CV Normal 11.6-14.6 [facility] Comment on above: Result Comment: Canc elled via OM: Order cancelled - Patient discharged Performed By: #### L 500.2500, L100.0100 ####[facility] [address] [place], [address] RDW SD Normal 35.1-43.9 [facility] Comment on above: Result Comment: Canc elled via OM: Order cancelled - Patient discharged Performed By: #### L 500.2500, L100.0100 ####[facility] [address] [place], [address] WBC Normal 4.4-11.0 [facility] Comment on above: Result Comment: Canc elled via OM: Order cancelled - Patient discharged Performed By: #### L 500.2500, L100.0100 ####[facility] [address] [place], [address] Culture, Blood (WB)on 2024 CUB Blood cultures x2, from two different sites No growth in 5 days. Normal [facility] Comment on above: Performed By: #### M 200.1000 ####[facility] [address] [place], [address] Basic Metabolic Profile (BMP )on 06-13-2024 BUN Normal 4-19 [facility] Comment on above: Result Comment: Canc elled via OM: Order cancelled - Patient discharged Performed By: #### L 500.2500, L100.0100 ####[facility] [address] [place], [address] BUN/CRE Normal 10-20 [facility] Comment on above: Result Comment: Canc elled via OM: Order cancelled - Patient discharged Performed By: #### L 500.2500, L100.0100 ####[facility] [address] [place], [address] Calcium Normal 7.6-11.0 [facility] Comment on above: Result Comment: Canc elled via OM: Order cancelled - Patient discharged Performed By: #### L 500.2500, L100.0100 ####[facility] [address] [place], [address] CL Normal 98-108 [facility] Comment on above: Result Comment: Canc elled via OM: Order cancelled - Patient discharged Performed By: #### L 500.2500, L100.0100 ####[facility] [address] [place], [address] CO2 Normal 21.0-32.0 [facility] Comment on above: Result Comment: Canc elled via OM: Order cancelled - Patient discharged Performed By: #### L 500.2500, L100.0100 ####[facility] [address] [place], [address] CREAT,SERUM Normal 0.70-1.20 [facility] Comment on above: Result Comment: Canc elled via OM: Order cancelled - Patient discharged Performed By: #### L 500.2500, L100.0100 ####[facility] [address] [place], [address] eGFR Normal >60 [facility] Comment on above: Result Comment: Canc elled via OM: Order cancelled - Patient discharged Performed By: #### L 500.2500, L100.0100 ####[facility] [address] [place], [address] GAP Normal 5-15 [facility] Comment on above: Result Comment: Canc elled via OM: Order cancelled - Patient discharged Performed By: #### L 500.2500, L100.0100 ####[facility] [address] [place], [address] GLU Normal 70-99 [facility] Comment on above: Result Comment: Canc elled via OM: Order cancelled - Patient discharged Performed By: #### L 500.2500, L100.0100 ####[facility] [address] [place], [address] Potassium Normal 3.3-5.1 [facility] Comment on above: Result Comment: Canc elled via OM: Order cancelled - Patient discharged Performed By: #### L 500.2500, L100.0100 ####[facility] [address] [place], [address] Basic Metabolic Profile (BMP) Normal 133-145 [facility] Comment on above: Result Comment: Canc elled via OM: Order cancelled - Patient discharged Performed By: #### L 500.2500, L100.0100 ####[facility] [address] [place], [address] CBC W/Diff, Automatedon - Absolute Neut Normal 2.0-7.7 [facility] Comment on above: Result Comment: Canc elled via OM: Order cancelled - Patient discharged Performed By: #### L 500.2500, L100.0100 ####[facility] [address] [place], [address] HCT Normal 40-54 [facility] Comment on above: Result Comment: Canc elled via OM: Order cancelled - Patient discharged Performed By: #### L 500.2500, L100.0100 ####[facility] [address] [place], [address] HGB Normal 13.0-16.5 [facility] Comment on above: Result Comment: Canc elled via OM: Order cancelled - Patient discharged Performed By: #### L 500.2500, L100.0100 ####[facility] [address] [place], [address] MCH Normal 27.0-32.0 [facility] Comment on above: Result Comment: Canc elled via OM: Order cancelled - Patient discharged Performed By: #### L 500.2500, L100.0100 ####[facility] [address] [place], [address] MCHC Normal 32-36 [facility] Comment on above: Result Comment: Canc elled via OM: Order cancelled - Patient discharged Performed By: #### L 500.2500, L100.0100 ####[facility] [address] [place], [address] MCV Normal 80-94 [facility] Comment on above: Result Comment: Canc elled via OM: Order cancelled - Patient discharged Performed By: #### L 500.2500, L100.0100 ####[facility] [address] [place], [address] NEUT% Normal 47-70 [facility] Comment on above: Result Comment: Canc elled via OM: Order cancelled - Patient discharged Performed By: #### L 500.2500, L100.0100 ####[facility] [address] [place], [address] PLT Normal 150-450 [facility] Comment on above: Result Comment: Canc elled via OM: Order cancelled - Patient discharged Performed By: #### L 500.2500, L100.0100 ####[facility] [address] [place], [address] RBC Normal 4.6-6.2 [facility] Comment on above: Result Comment: Canc elled via OM: Order cancelled - Patient discharged Performed By: #### L 500.2500, L100.0100 ####[facility] [address] [place], [address] RDW CV Normal 11.6-14.6 [facility] Comment on above: Result Comment: Canc elled via OM: Order cancelled - Patient discharged Performed By: #### L 500.2500, L100.0100 ####[facility] [address] [place], [address] RDW SD Normal 35.1-43.9 [facility] Comment on above: Result Comment: Canc elled via OM: Order cancelled - Patient discharged Performed By: #### L 500.2500, L100.0100 ####[facility] [address] [place], [address] WBC Normal 4.4-11.0 [facility] Comment on above: Result Comment: Canc elled via OM: Order cancelled - Patient discharged Performed By: #### L 500.2500, L100.0100 ####[facility] [address] [place], [address] Absolute lymphocyte countOrd ered By: Juliana Shaw on 06-12-2024 Lymphocytes Auto (Unsp spec) [#/Vol] 1.86 10*3/uL 0.83-4.51 [facility] Absolute neutrophil countOrd ered By: Juliana Shaw on 06-12-2024 Neutrophils (Bld) [#/Vol] 4.4 10*3/uL 2.0-7.7 [facility] Anion gap in Serum or Plasma Ordered By: Juliana Shaw on 06-12-2024 Anion gap [Moles/Vol] 11 mmol/L 5-15 [facility] Automated blood erythrocyte countOrdered By: Juliana Shaw on 06-12-2024 RBC (Bld) [#/Vol] 4.32 10*6/uL Low 4.6-6.2 [facility] Comment on above: Performed By: #### L 100.0100, L500.2500 ####[facility] [address] [place], [address] Automated blood hematocrit ( percentage)Ordered By: Juliana Shaw on 06-12-2024 Hematocrit (Bld) [Volume fraction] 38.4 % Low 40-54 [facility] Comment on above: Performed By: #### L 100.0100, L500.2500 ####[facility] [address] [place], [address] Automated lymphocyte count a s percentage of total leukocytesOrdered By: Juliana Shaw on 06-12-2024 Lymphocytes/100 WBC (Bld) 24.3 % Normal 19-41 [facility] Comment on above: Performed By: #### L 100.0100, L500.2500 ####[facility] [address] [place], [address] Lymphocytes/100 WBC Auto (Unsp spec) 24.3 % - [facility] BUN/creatinine ratioOrdered By: Juliana Shaw on 06-12-2024 Urea nitrogen/Creatinine [Mass ratio] 25.3 mg/mg High 10-20 [facility] Basic Metabolic Profile (BMP )on 06-12-2024 BUN/CRE 25.3 RATIO High 10-20 [facility] Comment on above: Performed By: #### L 100.0100, L500.2500 ####[facility] [address] [place], [address] ECRCL 97.57 ml/min Normal 50-250 [facility] Comment on above: Performed By: #### L 100.0100, L500.2500 ####[facility] [address] [place], [address] GAP 11 Normal 5-15 [facility] Comment on above: Performed By: #### L 100.0100, L500.2500 ####[facility] [address] [place], [address] Basophil percentageOrdered B y: Juliana Shaw on 06-12-2024 Basophils/100 WBC (Bld) 0.7 % Normal 0-1 [facility] Comment on above: Performed By: #### L 100.0100, L500.2500 ####[facility] [address] [place], [address] CBC W/Diff, Automatedon 05-28 Absolute Lymph 1.86 X10 3/uL Normal 0.83-4.51 [facility] Comment on above: Performed By: #### L 100.0100, L500.2500 ####[facility] [address] [place], [address] Absolute Neut 4.4 X10 3/uL Normal 2.0-7.7 [facility] Comment on above: Performed By: #### L 100.0100, L500.2500 ####[facility] [address] [place], [address] IG% 2.100 High 0.0-0.9 [facility] Comment on above: Result Comment: IG% - Immature Granulocytes (promyelocytes, myelocytes andmetamyelocytes) > 1% indicates that a LEFT SHIFT is Present. Performed By: #### L 100.0100, L500.2500 ####[facility] [address] [place], [address] Nucleated RBC (Bld) [#/Vol] 0 10*3/uL Normal 0-5 [facility] Comment on above: Performed By: #### L 100.0100, L500.2500 ####[facility] [address] [place], [address] RDW SD 53.4 fl High 35.1-43.9 [facility] Comment on above: Performed By: #### L 100.0100, L500.2500 ####[facility] [address] [place], [address] Carbon dioxide, total [Moles /volume] in Central venous bloodOrdered By: Juliana Shaw on 06-12-2024 CO2 [Moles/Vol] 23.1 mmol/L Normal 21.0-32.0 [facility] Comment on above: Performed By: #### L 100.0100, L500.2500 ####[facility] [address] [place], [address] Chloride assayOrdered By: Carlos Shaw on 06-12-2024 Chloride [Moles/Vol] 102 mmol/L Normal 98-108 [facility] Comment on above: Performed By: #### L 100.0100, L500.2500 ####[facility] [address] [place], [address] Discharge Instructionon 05-28 Discharge Instruction Normal [facility] Eosinophil percentageOrdered By: Juliana Shaw on 06-12-2024 Eosinophils/100 WBC (Bld) 3.5 % Normal 0-5 [facility] Comment on above: Performed By: #### L 100.0100, L500.2500 ####[facility] [address] [place], [address] Erythrocyte distribution wid th ratioOrdered By: Juliana Shaw on 06-12-2024 Erythrocyte distribution width (RBC) [Ratio] 16.4 % High 11.6-14.6 [facility] Comment on above: Performed By: #### L 100.0100, L500.2500 ####[facility] [address] [place], [address] Erythrocyte distribution wid th standard deviationOrdered By: Juliana Shaw on 06-12-2024 Erythrocyte distribution width (RBC) [Entitic vol] 53.4 fL High 35.1-43.9 [facility] Erythrocyte distribution width (RBC) [Ratio] 53.4 fl High 35.1-43.9 [facility] Estimation of creatinine moon aranceOrdered By: Juliana Shaw on 06-12-2024 Estimated Creatinine Clearance Calc 97.57 ml/min 50-250 [facility] GFR/1.73 sq M.predicted elias g non-blacks MDRD (S/P/Bld) [Vol rate/Area]Ordered By: Juliana Shaw on 06-12-2024 Estimated GFR (MDRD) Non-Af Amer 107 >60 [facility] Comment on above: mL/min/1.73m2 CKD-EP I Creatinine Equation (2020) Glomerular filtration rate ( GFR) estimation/1.73 sq m using serum, plasma, or whole bOrdered By: Juliana Shaw on 06-12-2024 GFR/1.73 sq M.predicted among non-blacks MDRD (S/P/Bld) [Vol rate/Area] 107 mL/min/{1.73_m2} Normal >60 [facility] Comment on above: mL/min/1.73m2 CKD-EP I Creatinine Equation (2020) Result Comment: mL/m in/1.73m2 CKD-EPI Creatinine Equation (2020) Performed By: #### L 100.0100, L500.2500 ####[facility] [address] [facility] [place], [place], [id number] Hemoglobin measurementOrdere d By: Juliana Shaw on 06-12-2024 Hemoglobin (Bld) [Mass/Vol] 12.3 g/dL Low 13.0-16.5 [facility] Comment on above: Performed By: #### L 100.0100, L500.2500 ####[facility] [address] [place], [place], [address] Immature granulocytes/100 WB C Auto (Bld)Ordered By: Juliana Shaw on 06-12-2024 Immature granulocytes/100 WBC (Bld) 2.100 % High 0.0-0.9 [facility] Comment on above: IG% - Immature Granu locytes (promyelocytes, myelocytes and metamyelocytes) > 1% indicates that a LEFT SHIFT is Present. Lymphocytes Auto (Unsp spec) [#/Vol]Ordered By: Juliana Shaw on 06-12-2024 Lymphocytes (Bld) [#/Vol] 1.86 10*3/uL 0.83-4.51 [facility] MCV (mean corpuscular volume ) determinationOrdered By: Juliana Shaw on 06-12-2024 MCV (RBC) [Entitic vol] 88.9 fL Normal 80-94 [facility] Comment on above: Performed By: #### L 100.0100, L500.2500 ####[facility] [address] [place], [address] Mean corpuscular hemoglobin (MCH) determinationOrdered By: Juliana Shaw on 06-12-2024 MCH (RBC) [Entitic mass] 28.5 pg Normal 27.0-32.0 [facility] Comment on above: Performed By: #### L 100.0100, L500.2500 ####[facility] [address] [place], [place], [id number] Mean corpuscular hemoglobin concentration (MCHC) determinationOrdered By: Julinaa Shaw on 06-12-2024 MCHC (RBC) [Mass/Vol] 32.0 g/dL Normal 32-36 [facility] Comment on above: Performed By: #### L 100.0100, L500.2500 ####[facility] [address] [place], [address] Mean platelet volume determi nationOrdered By: Juliana Shaw on 06-12-2024 Platelet mean volume (Bld) [Entitic vol] 9.8 fL Normal 6.2-12.0 [facility] Comment on above: Performed By: #### L 100.0100, L500.2500 ####[facility] [address] [place], [address] Monocyte percentageOrdered B y: Juliana Shaw on 06-12-2024 Monocytes/100 WBC (Bld) 12.5 % High 0-10 [facility] Comment on above: Performed By: #### L 100.0100, L500.2500 ####[facility] [address] [place], [address] Neutrophil percentageOrdered By: Juliana Shaw on 06-12-2024 Neutrophils/100 WBC (Bld) 56.9 % Normal 47-70 [facility] Comment on above: Performed By: #### L 100.0100, L500.2500 ####[facility] [address] [place], [address] Nucleated red blood cell per centageOrdered By: Juliana Shwa on 06-12-2024 Nucleated RBC/100 WBC (Bld) [Ratio] 0 % 0-5 [facility] Platelet countOrdered By: Carlos Shaw on 06-12-2024 Platelets (Bld) [#/Vol] 288 10*3/uL Normal 150-450 [facility] Comment on above: Performed By: #### L 100.0100, L500.2500 ####[facility] [address] [place], [address] Potassium measurement (mass/ volume)Ordered By: Juliana Shaw on 06-12-2024 Potassium [Moles/Vol] 4.1 mmol/L Normal 3.3-5.1 [facility] Comment on above: Hemolysis present, R esults could be affected. Result Comment: Hemo lysis present, Results??could be affected.?? Performed By: #### L 100.0100, L500.2500 ####[facility] [address] [place], [address] Potassium (Unsp spec) [Mass/Vol] 4.1 mmol/L 3.3-5.1 [facility] Comment on above: Hemolysis present, R esults could be affected. Serum creatinine measurement (mass/volume)Ordered By: Juliana Shaw on 06-12-2024 Creatinine [Mass/Vol] 0.57 mg/dL Low 0.70-1.20 [facility] Comment on above: Performed By: #### L 100.0100, L500.2500 ####[facility] [address] [place], [address] Serum glucose measurement (m ass/volume)Ordered By: Juliana Shaw on 06-12-2024 Glucose [Mass/Vol] 163 mg/dL High 70-99 [facility] Comment on above: Performed By: #### L 100.0100, L500.2500 ####[facility] [address] [place], [address] Serum or plasma calcium marlyn urement (mass/volume)Ordered By: Juliana Shaw on 06-12-2024 Calcium [Mass/Vol] 9.3 mg/dL Normal 7.6-11.0 [facility] Comment on above: Performed By: #### L 100.0100, L500.2500 ####[facility] [address] [place], [address] Serum or plasma urea nitroge n measurement (mass/volume)Ordered By: Juliana Shaw on 06-12-2024 Urea nitrogen [Mass/Vol] 15 mg/dL Normal 4-19 [facility] Comment on above: Performed By: #### L 100.0100, L500.2500 ####[facility] [address] [place], [address] Sodium levelOrdered By: Nicci Shaw on 06-12-2024 Sodium [Moles/Vol] 137 mmol/L Normal 133-145 [facility] Comment on above: Performed By: #### L 100.0100, L500.2500 ####[facility] [address] [place], [address] Urine Cultureon 06-12-2024 URC Normal [facility] Comment on above: Performed By: #### M 100.2200 ####[facility] [address] [place], [address] White blood cell (WBC) count Ordered By: Juliana Shaw on 06-12-2024 WBC (Bld) [#/Vol] 7.7 10*3/uL Normal 4.4-11.0 [facility] Comment on above: Performed By: #### L 100.0100, L500.2500 ####[facility] [address] [place], [address] Basic Metabolic Profile (BMP )on 06-11-2024 BUN/CRE 21.5 RATIO High 10-20 [facility] Comment on above: Performed By: #### L 100.0100, L500.2500 ####[facility] [address] [place], [address] Calcium [Mass/Vol] 9.1 mg/dL Normal 7.6-11.0 [facility] Comment on above: Performed By: #### L 100.0100, L500.2500 ####[facility] [address] [place], [address] Chloride [Moles/Vol] 102 mmol/L Normal 98-108 [facility] Comment on above: Performed By: #### L 100.0100, L500.2500 ####[facility] [address] [place], [address] CO2 [Moles/Vol] 21.5 mmol/L Normal 21.0-32.0 [facility] Comment on above: Performed By: #### L 100.0100, L500.2500 ####[facility] [address] [place], [address] Creatinine [Mass/Vol] 0.61 mg/dL Low 0.70-1.20 [facility] Comment on above: Performed By: #### L 100.0100, L500.2500 ####[facility] [address] [place], [address] ECRCL 97.57 ml/min Normal 50-250 [facility] Comment on above: Performed By: #### L 100.0100, L500.2500 ####[facility] [address] [place], [address] GAP 11 Normal 5-15 [facility] Comment on above: Performed By: #### L 100.0100, L500.2500 ####[facility] [address] [place], [address] GFR/1.73 sq M.predicted among non-blacks MDRD (S/P/Bld) [Vol rate/Area] 105 mL/min/{1.73_m2} Normal >60 [facility] Comment on above: Result Comment: mL/m in/1.73m2 CKD-EPI Creatinine Equation (2020) Performed By: #### L 100.0100, L500.2500 ####[facility] [address] [place], [address] Glucose [Mass/Vol] 148 mg/dL High 70-99 [facility] Comment on above: Performed By: #### L 100.0100, L500.2500 ####[facility] [address] [place], [address] Potassium [Moles/Vol] 4.2 mmol/L Normal 3.3-5.1 [facility] Comment on above: Performed By: #### L 100.0100, L500.2500 ####[facility] [address] [place], [address] Sodium [Moles/Vol] 134 mmol/L Normal 133-145 [facility] Comment on above: Performed By: #### L 100.0100, L500.2500 ####[facility] [address] [place], [address] Urea nitrogen [Mass/Vol] 13 mg/dL Normal 4-19 [facility] Comment on above: Performed By: #### L 100.0100, L500.2500 ####[facility] [address] [place], [address] CBC W/Diff, Automatedon 05-28 Absolute Lymph 1.61 X10 3/uL Normal 0.83-4.51 [facility] Comment on above: Performed By: #### L 100.0100, L500.2500 ####[facility] [address] [place], [address] Absolute Neut 7.0 X10 3/uL Normal 2.0-7.7 [facility] Comment on above: Performed By: #### L 100.0100, L500.2500 ####[facility] [address] [place], [address] Basophils/100 WBC (Bld) 0.5 % Normal 0-1 [facility] Comment on above: Performed By: #### L 100.0100, L500.2500 ####[facility] [address] [place], [address] Eosinophils/100 WBC (Bld) 2.2 % Normal 0-5 [facility] Comment on above: Performed By: #### L 100.0100, L500.2500 ####[facility] [address] [place], [address] Erythrocyte distribution width (RBC) [Ratio] 16.6 % High 11.6-14.6 [facility] Comment on above: Performed By: #### L 100.0100, L500.2500 ####[facility] [address] [place], [address] Hematocrit (Bld) [Volume fraction] 37.0 % Low 40-54 [facility] Comment on above: Performed By: #### L 100.0100, L500.2500 ####[facility] [address] [place], [address] Hemoglobin (Bld) [Mass/Vol] 11.9 g/dL Low 13.0-16.5 [facility] Comment on above: Performed By: #### L 100.0100, L500.2500 ####[facility] [address] [place], [address] IG% 1.100 High 0.0-0.9 [facility] Comment on above: Result Comment: IG% - Immature Granulocytes (promyelocytes, myelocytes andmetamyelocytes) > 1% indicates that a LEFT SHIFT is Present. Performed By: #### L 100.0100, L500.2500 ####[facility] [address] [place], [address] Lymphocytes/100 WBC (Bld) 16.6 % Low 19-41 [facility] Comment on above: Performed By: #### L 100.0100, L500.2500 ####[facility] [address] [place], [address] MCH (RBC) [Entitic mass] 28.5 pg Normal 27.0-32.0 [facility] Comment on above: Performed By: #### L 100.0100, L500.2500 ####[facility] [address] [place], [address] MCHC (RBC) [Mass/Vol] 32.2 g/dL Normal 32-36 [facility] Comment on above: Performed By: #### L 100.0100, L500.2500 ####[facility] [address] [place], [address] MCV (RBC) [Entitic vol] 88.5 fL Normal 80-94 [facility] Comment on above: Performed By: #### L 100.0100, L500.2500 ####[facility] [address] [place], [address] Monocytes/100 WBC (Bld) 7.4 % Normal 0-10 [facility] Comment on above: Performed By: #### L 100.0100, L500.2500 ####[facility] [address] [place], [address] Neutrophils/100 WBC (Bld) 72.2 % High 47-70 [facility] Comment on above: Performed By: #### L 100.0100, L500.2500 ####[facility] [address] [place], [address] Nucleated RBC (Bld) [#/Vol] 0 10*3/uL Normal 0-5 [facility] Comment on above: Performed By: #### L 100.0100, L500.2500 ####[facility] [address] [place], [address] Platelet mean volume (Bld) [Entitic vol] 9.6 fL Normal 6.2-12.0 [facility] Comment on above: Performed By: #### L 100.0100, L500.2500 ####[facility] [address] [place], [address] Platelets (Bld) [#/Vol] 270 10*3/uL Normal 150-450 [facility] Comment on above: Performed By: #### L 100.0100, L500.2500 ####[facility] [address] [place], [address] RBC (Bld) [#/Vol] 4.18 10*6/uL Low 4.6-6.2 [facility] Comment on above: Performed By: #### L 100.0100, L500.2500 ####[facility] [address] [place], [address] RDW SD 53.7 fl High 35.1-43.9 [facility] Comment on above: Performed By: #### L 100.0100, L500.2500 ####[facility] [address] [place], [address] WBC (Bld) [#/Vol] 9.7 10*3/uL Normal 4.4-11.0 [facility] Comment on above: Performed By: #### L 100.0100, L500.2500 ####[facility] [address] [place], [address] Basic Metabolic Profile (BMP )on 06-10-2024 BUN/CRE 13.0 RATIO Normal 10-20 [facility] Comment on above: Performed By: #### L 500.2500, L100.0100 ####[facility] [address] [place], [address] Calcium [Mass/Vol] 9.0 mg/dL Normal 7.6-11.0 [facility] Comment on above: Performed By: #### L 500.2500, L100.0100 ####[facility] [address] [place], [address] Chloride [Moles/Vol] 102 mmol/L Normal 98-108 [facility] Comment on above: Performed By: #### L 500.2500, L100.0100 ####[facility] [address] [place], [address] CO2 [Moles/Vol] 23.2 mmol/L Normal 21.0-32.0 [facility] Comment on above: Performed By: #### L 500.2500, L100.0100 ####[facility] [address] [place], [address] Creatinine [Mass/Vol] 0.66 mg/dL Low 0.70-1.20 [facility] Comment on above: Performed By: #### L 500.2500, L100.0100 ####[facility] [address] [place], [address] ECRCL 97.57 ml/min Normal 50-250 [facility] Comment on above: Performed By: #### L 500.2500, L100.0100 ####[facility] [address] [place], [address] GAP 11 Normal 5-15 [facility] Comment on above: Performed By: #### L 500.2500, L100.0100 ####[facility] [address] [place], [address] GFR/1.73 sq M.predicted among non-blacks MDRD (S/P/Bld) [Vol rate/Area] 103 mL/min/{1.73_m2} Normal >60 [facility] Comment on above: Result Comment: mL/m in/1.73m2 CKD-EPI Creatinine Equation (2020) Performed By: #### L 500.2500, L100.0100 ####[facility] [address] [place], [address] Glucose [Mass/Vol] 127 mg/dL High 70-99 [facility] Comment on above: Performed By: #### L 500.2500, L100.0100 ####[facility] [address] [place], [address] Potassium [Moles/Vol] 4.0 mmol/L Normal 3.3-5.1 [facility] Comment on above: Performed By: #### L 500.2500, L100.0100 ####[facility] [address] [place], [address] Sodium [Moles/Vol] 137 mmol/L Normal 133-145 [facility] Comment on above: Performed By: #### L 500.2500, L100.0100 ####[facility] [address] [place], [address] Urea nitrogen [Mass/Vol] 9 mg/dL Normal 4-19 [facility] Comment on above: Performed By: #### L 500.2500, L100.0100 ####[facility] [address] [place], [address] CBC W/Diff, Automatedon 05-28 Absolute Lymph 1.90 X10 3/uL Normal 0.83-4.51 [facility] Comment on above: Performed By: #### L 500.2500, L100.0100 ####[facility] [address] [place], [address] Absolute Neut 12.1 X10 3/uL High 2.0-7.7 [facility] Comment on above: Performed By: #### L 500.2500, L100.0100 ####[facility] [address] [place], [address] Basophils/100 WBC (Bld) 0.3 % Normal 0-1 [facility] Comment on above: Performed By: #### L 500.2500, L100.0100 ####[facility] [address] [place], [address] Eosinophils/100 WBC (Bld) 1.4 % Normal 0-5 [facility] Comment on above: Performed By: #### L 500.2500, L100.0100 ####[facility] [address] [place], [address] Erythrocyte distribution width (RBC) [Ratio] 17.1 % High 11.6-14.6 [facility] Comment on above: Performed By: #### L 500.2500, L100.0100 ####[facility] [address] [place], [address] Hematocrit (Bld) [Volume fraction] 38.1 % Low 40-54 [facility] Comment on above: Performed By: #### L 500.2500, L100.0100 ####[facility] [address] [place], [address] Hemoglobin (Bld) [Mass/Vol] 12.3 g/dL Low 13.0-16.5 [facility] Comment on above: Performed By: #### L 500.2500, L100.0100 ####[facility] [address] [place], [address] IG% 1.400 High 0.0-0.9 [facility] Comment on above: Result Comment: IG% - Immature Granulocytes (promyelocytes, myelocytes andmetamyelocytes) > 1% indicates that a LEFT SHIFT is Present. Performed By: #### L 500.2500, L100.0100 ####[facility] [address] [place], [address] Lymphocytes/100 WBC (Bld) 12.1 % Low 19-41 [facility] Comment on above: Performed By: #### L 500.2500, L100.0100 ####[facility] [address] [place], [address] MCH (RBC) [Entitic mass] 28.8 pg Normal 27.0-32.0 [facility] Comment on above: Performed By: #### L 500.2500, L100.0100 ####[facility] [address] [place], [address] MCHC (RBC) [Mass/Vol] 32.3 g/dL Normal 32-36 [facility] Comment on above: Performed By: #### L 500.2500, L100.0100 ####[facility] [address] [place], [address] MCV (RBC) [Entitic vol] 89.2 fL Normal 80-94 [facility] Comment on above: Performed By: #### L 500.2500, L100.0100 ####[facility] [address] [place], [address] Monocytes/100 WBC (Bld) 8.2 % Normal 0-10 [facility] Comment on above: Performed By: #### L 500.2500, L100.0100 ####[facility] [address] [place], [address] Neutrophils/100 WBC (Bld) 76.6 % High 47-70 [facility] Comment on above: Performed By: #### L 500.2500, L100.0100 ####[facility] [address] [place], [address] Nucleated RBC (Bld) [#/Vol] 0 10*3/uL Normal 0-5 [facility] Comment on above: Performed By: #### L 500.2500, L100.0100 ####[facility] [address] [place], [address] Platelet mean volume (Bld) [Entitic vol] 9.9 fL Normal 6.2-12.0 [facility] Comment on above: Performed By: #### L 500.2500, L100.0100 ####[facility] [address] [place], [address] Platelets (Bld) [#/Vol] 278 10*3/uL Normal 150-450 [facility] Comment on above: Performed By: #### L 500.2500, L100.0100 ####[facility] [address] [place], [address] RBC (Bld) [#/Vol] 4.27 10*6/uL Low 4.6-6.2 [facility] Comment on above: Performed By: #### L 500.2500, L100.0100 ####[facility] [address] [place], [address] RDW SD 55.8 fl High 35.1-43.9 [facility] Comment on above: Performed By: #### L 500.2500, L100.0100 ####[facility] [address] [place], [address] WBC (Bld) [#/Vol] 15.8 10*3/uL High 4.4-11.0 [facility] Comment on above: Performed By: #### L 500.2500, L100.0100 ####[facility] [address] [place], [place], [address] Absolute neutrophil countOrd ered By: Hebertgerman Booneo on 06-09-2024 Neutrophils (Bld) [#/Vol] 15.9 10*3/uL High 2.0-7.7 [facility] Amorphous sediment detection in urine sediment by light microscopyOrdered By: Hebert Saavedra on 06-09-2024 Amorphous sediment LM Ql (Urine sed) 1+ [facility] Anion gap in Serum or Plasma Ordered By: Hebertgerman Saavedra on 06-09-2024 Anion gap [Moles/Vol] 13 mmol/L 5-15 [facility] BUN/creatinine ratioOrdered By: [facility]-2024 Urea nitrogen/Creatinine [Mass ratio] 15.6 mg/mg 10-20 [facility] Basophil percentageOrdered B y: Hebertgerman Saavedra on 06-09-2024 Basophils/100 WBC (Bld) 0.5 % 0-1 [facility] Bilirubin Test strip Ql (U)O rdered By: Hebertgerman Saavedra on 06-09-2024 Bilirubin Ql (U) Negative Negative [facility] Bilirubin, totalOrdered By: Hebert Saavedra on 06-09-2024 Bilirubin [Mass/Vol] 0.29 mg/dL 0.00-1.30 [facility] Blood cultureOrdered By: Hebertgerman Saavedra on 06-09-2024 Bacteria identified Cx Nom (Bld) No growth in 5 days. [facility] Bacteria identified Cx Nom (Bld) No growth in 5 days. [facility] CBC W/Diff, Automatedon 05-28 Absolute Lymph 1.04 X10 3/uL Normal 0.83-4.51 [facility] Comment on above: Performed By: #### L 100.0100, L500.4050 ####[facility] [address] [place], [place], [address] Absolute Neut 15.9 X10 3/uL High 2.0-7.7 [facility] Comment on above: Performed By: #### L 100.0100, L500.4050 ####[facility] [address] [place], [address] Basophils/100 WBC (Bld) 0.5 % Normal 0-1 [facility] Comment on above: Performed By: #### L 100.0100, L500.4050 ####[facility] [address] [place], [address] Eosinophils/100 WBC (Bld) 0.4 % Normal 0-5 [facility] Comment on above: Performed By: #### L 100.0100, L500.4050 ####[facility] [address] [place], [address] Erythrocyte distribution width (RBC) [Ratio] 16.5 % High 11.6-14.6 [facility] Comment on above: Performed By: #### L 100.0100, L500.4050 ####[facility] [address] [place], [address] Hematocrit (Bld) [Volume fraction] 41.3 % Normal 40-54 [facility] Comment on above: Performed By: #### L 100.0100, L500.4050 ####[facility] [address] [place], [address] Hemoglobin (Bld) [Mass/Vol] 13.6 g/dL Normal 13.0-16.5 [facility] Comment on above: Performed By: #### L 100.0100, L500.4050 ####[facility] [address] [place], [address] IG% 0.700 Normal 0.0-0.9 [facility] Comment on above: Result Comment: IG% - Immature Granulocytes (promyelocytes, myelocytes andmetamyelocytes) > 1% indicates that a LEFT SHIFT is Present. Performed By: #### L 100.0100, L500.4050 ####[facility] [address] [place], [address] Lymphocytes/100 WBC (Bld) 5.6 % Low 19-41 [facility] Comment on above: Performed By: #### L 100.0100, L500.4050 ####[facility] [address] [place], [address] MCH (RBC) [Entitic mass] 28.8 pg Normal 27.0-32.0 [facility] Comment on above: Performed By: #### L 100.0100, L500.4050 ####[facility] [address] [place], [address] MCHC (RBC) [Mass/Vol] 32.9 g/dL Normal 32-36 [facility] Comment on above: Performed By: #### L 100.0100, L500.4050 ####[facility] [address] [place], [address] MCV (RBC) [Entitic vol] 87.3 fL Normal 80-94 [facility] Comment on above: Performed By: #### L 100.0100, L500.4050 ####[facility] [address] [place], [address] Monocytes/100 WBC (Bld) 6.9 % Normal 0-10 [facility] Comment on above: Performed By: #### L 100.0100, L500.4050 ####[facility] [address] [place], [address] Neutrophils/100 WBC (Bld) 85.9 % High 47-70 [facility] Comment on above: Performed By: #### L 100.0100, L500.4050 ####[facility] [address] [place], [address] Nucleated RBC (Bld) [#/Vol] 0 10*3/uL Normal 0-5 [facility] Comment on above: Performed By: #### L 100.0100, L500.4050 ####[facility] [address] [place], [address] Platelet mean volume (Bld) [Entitic vol] 9.3 fL Normal 6.2-12.0 [facility] Comment on above: Performed By: #### L 100.0100, L500.4050 ####[facility] [address] [place], [address] Platelets (Bld) [#/Vol] 310 10*3/uL Normal 150-450 [facility] Comment on above: Performed By: #### L 100.0100, L500.4050 ####[facility] [address] [place], [address] RBC (Bld) [#/Vol] 4.73 10*6/uL Normal 4.6-6.2 [facility] Comment on above: Performed By: #### L 100.0100, L500.4050 ####[facility] [address] [place], [address] RDW SD 52.9 fl High 35.1-43.9 [facility] Comment on above: Performed By: #### L 100.0100, L500.4050 ####[facility] [address] [place], [address] WBC (Bld) [#/Vol] 18.5 10*3/uL High 4.4-11.0 [facility] Comment on above: Performed By: #### L 100.0100, L500.4050 ####[facility] [address] [place], [address] Carbon dioxide, total [Moles /volume] in Central venous bloodOrdered By: Hebert Saavedra on 06-09-2024 CO2 [Moles/Vol] 22.0 mmol/L 21.0-32.0 [facility] Chest PA and Lateralon 06-09 Chest PA and Lateral Normal [facility] Chloride assayOrdered By: Adri Saavedra on 06-09-2024 Chloride [Moles/Vol] 103 mmol/L 98-108 [facility] Comprehensive Metabolic Prof ilon 06-09-2024 Albumin [Mass/Vol] 3.6 g/dL Normal 3.4-4.8 [facility] Comment on above: Performed By: #### L 100.0100, L500.4050 ####[facility] [address] [place], [address] Albumin/Globulin [Mass ratio] 1.0 {ratio} Normal 0.9-2.4 [facility] Comment on above: Performed By: #### L 100.0100, L500.4050 ####[facility] [address] [place], [address] ALK PHOS 137 U/L High 40-129 [facility] Comment on above: Performed By: #### L 100.0100, L500.4050 ####[facility] [address] [place], [address] ALT [Catalytic activity/Vol] 21 U/L Normal <=46 [facility] Comment on above: Performed By: #### L 100.0100, L500.4050 ####[facility] [address] [place], [address] AST [Catalytic activity/Vol] 25 U/L Normal <=37 [facility] Comment on above: Performed By: #### L 100.0100, L500.4050 ####[facility] [address] [place], [address] Bilirubin [Mass/Vol] 0.29 mg/dL Normal 0.00-1.30 [facility] Comment on above: Performed By: #### L 100.0100, L500.4050 ####[facility] [address] [place], [address] BUN/CRE 15.6 RATIO Normal 10-20 [facility] Comment on above: Performed By: #### L 100.0100, L500.4050 ####[facility] [address] [place], [address] Calcium [Mass/Vol] 9.3 mg/dL Normal 7.6-11.0 [facility] Comment on above: Performed By: #### L 100.0100, L500.4050 ####[facility] [address] [place], [address] Chloride [Moles/Vol] 103 mmol/L Normal 98-108 [facility] Comment on above: Performed By: #### L 100.0100, L500.4050 ####[facility] [address] [place], [address] CO2 [Moles/Vol] 22.0 mmol/L Normal 21.0-32.0 [facility] Comment on above: Performed By: #### L 100.0100, L500.4050 ####[facility] [address] [place], [address] Creatinine [Mass/Vol] 0.67 mg/dL Low 0.70-1.20 [facility] Comment on above: Performed By: #### L 100.0100, L500.4050 ####[facility] [address] [place], [address] ECRCL 98.85 ml/min Normal 50-250 [facility] Comment on above: Performed By: #### L 100.0100, L500.4050 ####[facility] [address] [place], [address] GAP 13 Normal 5-15 [facility] Comment on above: Performed By: #### L 100.0100, L500.4050 ####[facility] [address] [place], [address] GFR/1.73 sq M.predicted among non-blacks MDRD (S/P/Bld) [Vol rate/Area] 102 mL/min/{1.73_m2} Normal >60 [facility] Comment on above: Result Comment: mL/m in/1.73m2 CKD-EPI Creatinine Equation (2020) Performed By: #### L 100.0100, L500.4050 ####[facility] [address] [place], [address] Globulin (S) [Mass/Vol] 3.7 g/dL Normal 2.2-4.2 [facility] Comment on above: Performed By: #### L 100.0100, L500.4050 ####[facility] [address] [place], [address] Glucose [Mass/Vol] 149 mg/dL High 70-99 [facility] Comment on above: Performed By: #### L 100.0100, L500.4050 ####[facility] [address] [place], [address] Potassium [Moles/Vol] 4.1 mmol/L Normal 3.3-5.1 [facility] Comment on above: Performed By: #### L 100.0100, L500.4050 ####[facility] [address] [place], [address] Sodium [Moles/Vol] 138 mmol/L Normal 133-145 [facility] Comment on above: Performed By: #### L 100.0100, L500.4050 ####[facility] [address] [place], [address] T PROT 7.3 g/dL Normal 5.9-8.4 [facility] Comment on above: Performed By: #### L 100.0100, L500.4050 ####[facility] [address] [place], [address] Urea nitrogen [Mass/Vol] 10 mg/dL Normal 4-19 [facility] Comment on above: Performed By: #### L 100.0100, L500.4050 ####[facility] [address] [place], [address] Emergency Department Summary on 06-09-2024 Emergency Department Summary Normal [facility] Eosinophil percentageOrdered By: Hebert Saavedra on 06-09-2024 Eosinophils/100 WBC (Bld) 0.4 % 0-5 [facility] Epithelial cells.squamous LM Ql (Urine sed)Ordered By: Hebert Saavedra on 06-09-2024 Epithelial cells.squamous LM.HPF (Urine sed) [#/Area] 0 /[HPF] 0-5 [facility] Erythrocyte distribution wid th ratioOrdered By: Hebert Saavedra on 06-09-2024 Erythrocyte distribution width (RBC) [Ratio] 16.5 % High 11.6-14.6 [facility] Erythrocyte distribution wid th standard deviationOrdered By: Hebert Saavedra on 06-09-2024 Erythrocyte distribution width (RBC) [Entitic vol] 52.9 fL High 35.1-43.9 [facility] Estimation of creatinine moon aranceOrdered By: Hebert Saavedra on 06-09-2024 Estimated Creatinine Clearance Calc 98.85 ml/min 50-250 [facility] GFR/1.73 sq M.predicted elias g non-blacks MDRD (S/P/Bld) [Vol rate/Area]Ordered By: Hebert Saavedra on 06-09-2024 Estimated GFR (MDRD) Non-Af Amer 102 >60 [facility] Comment on above: mL/min/1.73m2 CKD-EP I Creatinine Equation (2020) Glucose Ql (U)Ordered By: Adri Saavedra on 06-09-2024 Urine Glucose (UA) Normal mg/dl Normal [facility] H AND P Exam - [facility] 06-09-2024 H&P Exam - Hospitalist Normal [facility] Hematocrit Auto (Bld) [Volum e fraction]Ordered By: Hebert Saavedra on 06-09-2024 Hematocrit (Bld) [Volume fraction] 41.3 % 40-54 [facility] Hemoglobin measurementOrdere d By: eHbert Saavedra on 06-09-2024 Hemoglobin (Bld) [Mass/Vol] 13.6 g/dL 13.0-16.5 [facility] Immature granulocytes/100 WB C Auto (Bld)Ordered By: Hebert Saavedra on 06-09-2024 Immature granulocytes/100 WBC (Bld) 0.700 % 0.0-0.9 [facility] Comment on above: IG% - Immature Granu locytes (promyelocytes, myelocytes and metamyelocytes) > 1% indicates that a LEFT SHIFT is Present. Influenza virus A and B and SARS-CoV-2 (COVID-19) and Respiratory syncytial virus RNAOrdered By: Hebertgerman Saavedra on 06-09-2024 SARS-CoV-2 (COVID-19) RNA IMER+probe Ql (Unsp spec) [facility] Ketones Test strip Ql (U)Ord ered By: Hebert Saavedra on 06-09-2024 Ketones Ql (U) Negative Negative [facility] Laboratory - Chemistry and C hemistry - challengeOrdered By: Hebert Saavedra on 06-09-2024 AST [Catalytic activity/Vol] 25 U/L <38 [facility] Lactic Acidon 06-09-2024 Lactate [Moles/Vol] 2.8 mmol/L Invalid Interpretation Code 0.0-2.0 [facility] Comment on above: Order Comment: Y Result Comment: Crit ical Result(s) Called at: 11:12 by: Dylan Mccabe??Resultsread back by same. Performed By: #### L 503.6005 ####[facility] [address] [place], [address] Lactic acid measurementOrder ed By: Hebert Saavedra on 06-09-2024 Lactate [Moles/Vol] 2.8 mmol/L High 0.0-2.0 [facility] Comment on above: Critical Result(s) C alled at: 11:12 by: Dylan Mccabe Results read back by carlos. Lymphocytes Auto (Unsp spec) [#/Vol]Ordered By: Hebert Saavedra on 06-09-2024 Lymphocytes (Bld) [#/Vol] 1.04 10*3/uL 0.83-4.51 [facility] Lymphocytes/100 WBC Auto (Un sp spec)Ordered By: Hebert Saavedra on 06-09-2024 Lymphocytes/100 WBC (Bld) 5.6 % Low 19-41 [facility] M100.678on 06-09-2024 M100.678 Pending SARS-CoV-2 (COVID 19) Negative INFLUENZA A Negative INFLUENZA B Negative RSV PCR Negative Normal [facility] Comment on above: Performed By: #### M 100.678 ####[facility] [address] [place], [address] MCV (mean corpuscular volume ) determinationOrdered By: Hebert Saavedra on 06-09-2024 MCV (RBC) [Entitic vol] 87.3 fL 80-94 [facility] Mean corpuscular hemoglobin (MCH) determinationOrdered By: Hebert Saavedra on 06-09-2024 MCH (RBC) [Entitic mass] 28.8 pg 27.0-32.0 [facility] Mean corpuscular hemoglobin concentration (MCHC) determinationOrdered By: Hebert Saavedra on 06-09-2024 MCHC (RBC) [Mass/Vol] 32.9 g/dL 32-36 [facility] Mean platelet volume determi nationOrdered By: Hebert Saavedra on 06-09-2024 Platelet mean volume (Bld) [Entitic vol] 9.3 fL 6.2-12.0 [facility] Microscopic analysis of urin e for red blood cells (RBC)Ordered By: Hebert Saavedra on 06-09-2024 Microscopic analysis of urine for red blood cells (RBC) 0-5 SEEN /hpf 0-5 [facility] Urine RBC 0-5 SEEN /hpf 0-5 [facility] Monocyte percentageOrdered B y: Hebert Saavedra on 06-09-2024 Monocytes/100 WBC (Bld) 6.9 % 0-10 [facility] Mucus LM Ql (Urine sed)Order ed By: Hebert Saavedra on 06-09-2024 Mucus Ql (Urine sed) 0 SEEN /hpf [facility] Neutrophil percentageOrdered By: Hebert Saavedra on 06-09-2024 Neutrophils/100 WBC (Bld) 85.9 % High 47-70 [facility] Nitrite Test strip Ql (U)Ord ered By: Hebert Saavedra on 06-09-2024 Nitrite Ql (U) Positive High Negative [facility] No Panel InformationOrdered By: Hebert Saavedra on 06-09-2024 25 U/L <38 [facility] Nucleated red blood cell per centageOrdered By: Hebert Saavedra on 06-09-2024 Nucleated RBC/100 WBC (Bld) [Ratio] 0 % 0-5 [facility] Platelet countOrdered By: Adri Saavedra on 06-09-2024 Platelets (Bld) [#/Vol] 310 10*3/uL 150-450 [facility] Potassium (Unsp spec) [Mass/ Vol]Ordered By: Hebert Saavedra on 06-09-2024 Potassium [Moles/Vol] 4.1 mmol/L 3.3-5.1 [facility] Protein Test strip Ql (U)Ord ered By: Hebert Saavedra on 06-09-2024 Protein Ql (U) 30 mg/dl High Negative [facility] RBC Auto (Bld) [#/Vol]Ordere d By: Hebert Saavedra on 06-09-2024 RBC (Bld) [#/Vol] 4.73 10*6/uL 4.6-6.2 [facility] Serum creatinine measurement (mass/volume)Ordered By: Hebert Saavedra on 06-09-2024 Creatinine [Mass/Vol] 0.67 mg/dL Low 0.70-1.20 [facility] Serum globulin measurementOr dered By: Hebert Saavedra on 06-09-2024 Globulin (S) [Mass/Vol] 3.7 g/dL 2.2-4.2 [facility] Serum glucose measurement (m ass/volume)Ordered By: Hebert Saavedra on 06-09-2024 Glucose [Mass/Vol] 149 mg/dL High 70-99 [facility] Serum or plasma alanine orozco otransferase (ALT) measurementOrdered By: Hebert Saavedra on 06-09-2024 ALT [Catalytic activity/Vol] 21 U/L <47 [facility] Serum or plasma albumin marlyn urement (mass/volume)Ordered By: Hebertgerman Saavedra on 06-09-2024 Albumin [Mass/Vol] 3.6 g/dL 3.4-4.8 [facility] Serum or plasma albumin/glob ulin mass ratioOrdered By: Hebert Saavedra on 06-09-2024 Albumin/Globulin [Mass ratio] 1.0 {ratio} 0.9-2.4 [facility] Serum or plasma alkaline marisol sphatase measurementOrdered By: Hebert Saavedra on 06-09-2024 ALP [Catalytic activity/Vol] 137 U/L High 40-129 [facility] Serum or plasma calcium marlyn urement (mass/volume)Ordered By: Hebert Saavedra on 06-09-2024 Calcium [Mass/Vol] 9.3 mg/dL 7.6-11.0 [facility] Serum or plasma urea nitroge n measurement (mass/volume)Ordered By: Hebert Saavedra on 06-09-2024 Urea nitrogen [Mass/Vol] 10 mg/dL 4-19 [facility] Sodium levelOrdered By: Hebertgerman Saavedra on 06-09-2024 Sodium [Moles/Vol] 138 mmol/L 133-145 [facility] Squamous epithelial cells de tection in urine sediment by light microscopyOrdered By: Hebertgerman Saavedra on 06-09-2024 Epithelial cells.squamous LM Ql (Urine sed) 0 SEEN /hpf 0-5 [facility] Total proteinOrdered By: Hebertgerman Saavedra on 06-09-2024 Protein [Mass/Vol] 7.3 g/dL 5.9-8.4 [facility] Urinalysis, Completeon 06-09 BACTERIA 2+ /hpf Normal None Seen [facility] Comment on above: Order Comment: CLEAN CATCH Performed By: #### L [id number] ####[facility] [address] [place], [address] EPI,SQUAMOUS 0 SEEN Normal 0-5 [facility] Comment on above: Order Comment: CLEAN CATCH Performed By: #### L [id number] ####[facility] [address] [place], [address] RBC 0-5 SEEN Normal 0-5 [facility] Comment on above: Order Comment: CLEAN CATCH Performed By: #### L [id number] ####[facility] [address] [place], [place], [address] WBC >100 SEEN Normal 0-5 [facility] Comment on above: Order Comment: CLEAN CATCH Performed By: #### L [id number] ####[facility] [address] [place], [address] AMORPHOUS 1+ Normal [facility] Comment on above: Order Comment: CLEAN CATCH Performed By: #### L [id number] ####[facility] [address] [place], [place], [id number] Mucus Ql (Urine sed) 0 SEEN Normal [facility] Comment on above: Order Comment: CLEAN CATCH Performed By: #### L [id number] ####[facility] [address] [place], [place], [id number] Urine blood detectionOrdered By: Hebert Saavedra on 06-09-2024 Urine Occult Blood 150 /ul High Negative [facility] Urine clarityOrdered By: Hebert Saavedra on 06-09-2024 Clarity (U) Cloudy Clear [facility] Urine color determinationOrd ered By: Hebert Saavedra on 06-09-2024 Color (U) Yellow Yellow [facility] Urine cultureOrdered By: Hebert Saavedra on 06-09-2024 Bacteria identified Cx Nom (U) Klebsiella oxytoca Abnormal [facility] Bacteria identified Cx Nom (U) Staphylococcus aureus Abnormal [facility] Urine glucose detectionOrder ed By: Hebert Saavedra on 06-09-2024 Glucose Ql (U) Normal mg/dl Normal [facility] Urine leukocyte esterase det ection by dipstickOrdered By: Hebert Saavedra on 06-09-2024 Leukocyte esterase Test strip Ql (U) 500 /ul High Negative [facility] Urine pHOrdered By: Hebert porter on 06-09-2024 pH (U) 7.0 [pH] 5.0 - 8.0 [facility] Urine sediment bacteria coun t by microscopy (number/high power field)Ordered By: Hebertgerman Saavedra on 06-09-2024 Bacteria LM.HPF (Urine sed) [#/Area] 2 /[HPF] None Seen [facility] Urine specific gravity measu rementOrdered By: Hebertgerman Saavedra on 06-09-2024 Specific gravity (U) [Rel density] 1.010 1.002-1.030 [facility] Urine urobilinogen measureme ntOrdered By: [facility] Urobilinogen Ql (U) Normal mg/dl Normal [facility] Urobilinogen Ql (U)Ordered B y: [facility] 06-[facility]-2024 Urine Urobilinogen Normal mg/dl Normal [facility] White blood cell (WBC) count Ordered By: Hebert Saavedra on 06-09-2024 WBC (Bld) [#/Vol] 18.5 10*3/uL High 4.4-11.0 [facility] White blood cell countOrdere d By: Hebertgerman Saavedra on 06-09-2024 Urine WBC >100 SEEN /hpf 0-5 [facility] White blood cell count >100 SEEN /hpf 0-5 [facility] Cerv Spine 4 or 5 Viewson Cerv Spine 4 or 5 Views Normal [facility] Orthopedic Visit Reporton Orthopedic Visit Report Normal [facility] 36on 03-31-2024 36 Letter faxed to number provided. Successful fax confirmation scanned into media. Normal [facility] 36 Letter created, please fax [facility] 36 Patient need letter created for orders month SPT changes and care for any clogged SPT, per Jennifer. Fax order to [phone]. Please advise. [facility] 36 Name of caller: Jennifer Contact phone number: [phone] Relationship to Patient: [facility] Care Provider: Dr Casas Practice: [facility] Chief Complaint/Reason for Call: Requesting a VERBAL ORDER Super Pubic Catheter Monthly Change. Jennifer: [phone] Patient changed insurance this is why the new Order is being requested. Best time of day caller can be reached: any Patient advised that office/PCP has 24-48 business hours to return their call: No Normal [facility] Prealbumin [id number] Prealbumin [Mass/Vol] 22 mg/dL Normal - [facility] Comment on above: Result Comment: Perf ormed at: - [facility] [address] [place], [place] [id number] Director: Rayo Wilkinson PhD, Phone: [phone] Performed By: #### L [id number], L100.0500, L500.4050, L3300.6400 ####[facility] [address] [place], [address] Albumin to globulin ratioOrd ered By: Kemi Rubio on 03-24-2024 Albumin/Globulin [Mass ratio] 0.7 {ratio} Low 0.9-2.4 [facility] Bilirubin, totalOrdered By: Kemi Rubio on 03-24-2024 Bilirubin [Mass/Vol] 0.30 mg/dL 0.20-1.00 [facility] Comment on above: For patients on eltr ombopag therapy, use of Dimension [place] TBIL is not recommended. Blood urea nitrogen (BUN)/cr eatinine ratioOrdered By: Kemi Rubio on 03-24-2024 Urea nitrogen/Creatinine [Mass ratio] 20.9 mg/mg High 10- [facility] CBC-Complete Blood Cnt No Di ffon 03-24-2024 Erythrocyte distribution width (RBC) [Ratio] 17.0 % High 11.6-14.6 [facility] Comment on above: Performed By: #### L [id number], L100.0500, L500.4050, L3300.6400 ####[facility] [address] [place], [address] Hematocrit (Bld) [Volume fraction] 42.9 % Normal 40-54 [facility] Comment on above: Performed By: #### L [id number], L100.0500, L500.4050, [id number] ####[facility] [address] [place], [address] Hemoglobin (Bld) [Mass/Vol] 13.4 g/dL Normal 13.0-16.5 [facility] Comment on above: Performed By: #### L [id number], L100.0500, L500.4050, L3300.6400 ####[facility] [address] [place], [address] MCH (RBC) [Entitic mass] 28.2 pg Normal 27.0-32.0 [facility] Comment on above: Performed By: #### L [id number], L100.0500, L500.4050, [id number] ####[facility] [address] [place], [address] MCHC (RBC) [Mass/Vol] 31.2 g/dL Low 32-36 [facility] Comment on above: Performed By: #### L [id number], L100.0500, L500.4050, [id number] ####[facility] [address] [place], [address] MCV (RBC) [Entitic vol] 90.1 fL Normal 80-94 [facility] Comment on above: Performed By: #### L [id number], L100.0500, L500.4050, [id number] ####[facility] [address] [place], [address] Platelet mean volume (Bld) [Entitic vol] 10.0 fL Normal 6.2-12.0 [facility] Comment on above: Performed By: #### L [id number], L100.0500, L500.4050, [id number] ####[facility] [address] [place], [address] Platelets (Bld) [#/Vol] 343 10*3/uL Normal 150-450 [facility] Comment on above: Performed By: #### L [id number], L100.0500, L500.4050, [id number] ####[facility] [address] [place], [address] RBC (Bld) [#/Vol] 4.76 10*6/uL Normal 4.6-6.2 [facility] Comment on above: Performed By: #### L [id number], L100.0500, L500.4050, [id number] ####[facility] [address] [place], [address] RDW SD 56.4 fl High 35.1-43.9 [facility] Comment on above: Performed By: #### L [id number], L100.0500, L500.4050, [id number] ####[facility] [address] [place], [address] WBC (Bld) [#/Vol] 5.8 10*3/uL Normal 4.4-11.0 [facility] Comment on above: Performed By: #### L [id number], L100.0500, L500.4050, [id number] ####[facility] [address] [place], [address] Carbon dioxide measurementOr dered By: Kemi Rubio on 03-24-2024 CO2 [Moles/Vol] 27.0 mmol/L 21.0-32.0 [facility] Chloride measurementOrdered By: Kemi Rubio on 03-24-2024 Chloride [Moles/Vol] 106 mmol/L 98-107 [facility] Comprehensive Metabolic Prof ilon 03-24-2024 Albumin [Mass/Vol] 2.8 g/dL Low 3.2-5.0 [facility] Comment on above: Performed By: #### L [id number], L100.0500, L500.4050, [id number] ####[facility] [address] [place], [address] Albumin/Globulin [Mass ratio] 0.7 {ratio} Low 0.9-2.4 [facility] Comment on above: Performed By: #### L [id number], L100.0500, L500.4050, [id number] ####[facility] [address] [place], [address] ALK P 141 U/L High 45-117 [facility] Comment on above: Performed By: #### L [id number], L100.0500, L500.4050, [id number] ####[facility] [address] [place], [address] ALT [Catalytic activity/Vol] 38 U/L Normal 16-61 [facility] Comment on above: Performed By: #### L [id number], L100.0500, L500.4050, [id number] ####[facility] [address] [place], [address] AST [Catalytic activity/Vol] 23 U/L Normal 15-37 [facility] Comment on above: Performed By: #### L [id number], L100.0500, L500.4050, [id number] ####[facility] [address] [place], [address] Bilirubin [Mass/Vol] 0.30 mg/dL Normal 0.20-1.00 [facility] Comment on above: Result Comment: For patients on eltrombopag therapy, use of Dimension [place] TBIL is not recommended. Performed By: #### L [id number], L100.0500, L500.4050, [id number] ####[facility] [address] [place], [address] BUN/CRE 20.9 RATIO High 10-20 [facility] Comment on above: Performed By: #### L [id number], L100.0500, L500.4050, [id number] ####[facility] [address] [place], [address] CA,Total 9.2 mg/dL Normal 8.5-10.1 [facility] Comment on above: Performed By: #### L [id number], L100.0500, L500.4050, [id number] ####[facility] [address] [place], [address] Chloride [Moles/Vol] 106 mmol/L Normal 98-107 [facility] Comment on above: Performed By: #### L [id number], L100.0500, L500.4050, [id number] ####[facility] [address] [place], [address] CO2 [Moles/Vol] 27.0 mmol/L Normal 21.0-32.0 [facility] Comment on above: Performed By: #### L [id number], L100.0500, L500.4050, [id number] ####[facility] [address] [place], [address] Creatinine [Mass/Vol] 0.62 mg/dL Low 0.70-1.30 [facility] Comment on above: Result Comment: The validity of the calculated GFR GFRAA in patients over70 years has not been determined. Clinical correlation isessential. Performed By: #### L 501.9985, L100.0500, L500.4050, [id number] ####[facility] [address] [place], [address] EST GFR - AA 165 mL/min Normal >60 [facility] Comment on above: Result Comment: Afri can Moroccan GFR Calc Performed By: #### L [id number], L100.0500, L500.4050, [id number] ####[facility] [address] [place], [address] GAP 4 Low 5-15 [facility] Comment on above: Performed By: #### L 501.9985, L100.0500, L500.4050, L3300.6400 ####[facility] [address] [place], [address] GFR/1.73 sq M.predicted among non-blacks MDRD (S/P/Bld) [Vol rate/Area] 137 mL/min/{1.73_m2} Normal >60 [facility] Comment on above: Result Comment: Non- GFR Calc Performed By: #### L 501.9985, L100.0500, L500.4050, L3300.6400 ####[facility] [address] [place], [address] Globulin (S) [Mass/Vol] 4.3 g/dL High 2.2-4.2 [facility] Comment on above: Performed By: #### L 501.9985, L100.0500, L500.4050, [id number] ####[facility] [address] [place], [address] Glucose [Mass/Vol] 114 mg/dL High 74-106 [facility] Comment on above: Result Comment: Fast ing Glucose result from 100 to 125 mg/dLsuggests IMPAIRED HOMEOSTASIS per A.D.A. criteria. Performed By: #### L 501.9985, L100.0500, L500.4050, [id number] ####[facility] [address] [place], [address] Potassium [Moles/Vol] 4.3 mmol/L Normal 3.5-5.1 [facility] Comment on above: Performed By: #### L 501.9985, L100.0500, L500.4050, [id number] ####[facility] [address] [place], [address] Sodium [Moles/Vol] 137 mmol/L Normal 136-145 [facility] Comment on above: Performed By: #### L 501.9985, L100.0500, L500.4050, [id number] ####[facility] [address] [place], [address] T PROT 7.1 g/dL Normal 6.4-8.2 [facility] Comment on above: Performed By: #### L 501.9985, L100.0500, L500.4050, [id number] ####[facility] [address] [place], [address] Urea nitrogen [Mass/Vol] 13 mg/dL Normal 7-18 [facility] Comment on above: Performed By: #### L 501.9985, L100.0500, L500.4050, [id number] ####[facility] [address] [place], [address] Erythrocyte distribution wid th ratioOrdered By: Kemi Rubio on 03-24-2024 Erythrocyte distribution width (RBC) [Ratio] 17.0 % High 11.6-14.6 [facility] Erythrocyte distribution wid th standard deviationOrdered By: Kemi Rubio on 03-24-2024 Erythrocyte distribution width (RBC) [Entitic vol] 56.4 fL High 35.1-43.9 [facility] Estimated glomerular filtrat ion rate (GFR) AmericanOrdered By: Kemi Rubio on 03-24-2024 Estimated GFR (MDRD) Amer 165 mL/min >60 [facility] Comment on above: GFR Calc Glomerular filtration rate ( GFR) estimationOrdered By: Kemi Rubio on 03-24-2024 Estimated GFR (MDRD) Non-Af Amer 137 mL/min >60 [facility] Comment on above: Non- GFR Calc Glucose measurementOrdered B y: Kemi Rubio on 03-24-2024 Glucose [Mass/Vol] 114 mg/dL High 74-106 [facility] Comment on above: Fasting Glucose resu lt from 100 to 125 mg/dL suggests IMPAIRED HOMEOSTASIS per A.D.A. criteria. Hematocrit Auto (Bld) [Volum e fraction]Ordered By: Kemi Rubio on 03-24-2024 Hematocrit (Bld) [Volume fraction] 42.9 % 40-54 [facility] Hemoglobin A1con 03-24-2024 HbA1c (Bld) [Mass fraction] 6.5 % High 3.8-5.6 [facility] Comment on above: Result Comment: Norm al < 5.7 % Prediabetic 5.7 - 6.4 % Diabetic >or= 6.5 % Please note range changes. Performed By: #### L 501.9985, L100.0500, L500.4050, [id number] ####[facility] [address] [place], [place], [address] Hemoglobin A1c percentageOrd ered By: Kemi Rubio on 03-24-2024 HbA1c (Bld) [Mass fraction] 6.5 % High 3.8-5.6 [facility] Comment on above: Normal < 5.7 % Predi abetic 5.7 - 6.4 % Diabetic >or= 6.5 % Please note range changes. Hemoglobin measurementOrdere d By: Kemi Rubio on 03-24-2024 Hemoglobin (Bld) [Mass/Vol] 13.4 g/dL 13.0-16.5 [facility] Laboratory - Chemistry and C hemistry - challengeOrdered By: Kemi Rubio on 03-24-2024 AST [Catalytic activity/Vol] 23 U/L 15-37 [facility] MCV (mean corpuscular volume ) determinationOrdered By: Kemi Rubio on 03-24-2024 MCV (RBC) [Entitic vol] 90.1 fL 80-94 [facility] Mean corpuscular hemoglobin (MCH) determinationOrdered By: Kemi Rubio on 03-24-2024 MCH (RBC) [Entitic mass] 28.2 pg 27.0-32.0 [facility] Mean corpuscular hemoglobin concentration (MCHC) determinationOrdered By: Kemi Rubio on 03-24-2024 MCHC (RBC) [Mass/Vol] 31.2 g/dL Low 32-36 [facility] Mean platelet volume determi nationOrdered By: Kemi Rubio on 03-24-2024 Platelet mean volume (Bld) [Entitic vol] 10.0 fL 6.2-12.0 [facility] Platelet countOrdered By: St selam Rubio on 03-24-2024 Platelets (Bld) [#/Vol] 343 10*3/uL 150-450 [facility] Potassium measurementOrdered By: Kemi Rubio on 03-24-2024 Potassium [Moles/Vol] 4.3 mmol/L 3.5-5.1 [facility] RBC Auto (Bld) [#/Vol]Ordere d By: Kemi Rubio on 03-24-2024 RBC (Bld) [#/Vol] 4.76 10*6/uL 4.6-6.2 [facility] Serum anion gap measurementO rdered By: Kemi Rubio on 03-24-2024 Anion gap [Moles/Vol] 4 mmol/L Low 5-15 [facility] Serum globulin measurementOr dered By: Kemi Rubio on 03-24-2024 Globulin (S) [Mass/Vol] 4.3 g/dL High 2.2-4.2 [facility] Serum or plasma alanine orozco otransferase (ALT) measurementOrdered By: Kemi Rubio on 03-24-2024 ALT [Catalytic activity/Vol] 38 U/L 16-61 [facility] Serum or plasma albumin marlyn urement (mass/volume)Ordered By: Kemi Rubio on 03-24-2024 Albumin [Mass/Vol] 2.8 g/dL Low 3.2-5.0 [facility] Serum or plasma alkaline marisol sphatase measurementOrdered By: Kemi Rubio on 03-24-2024 ALP [Catalytic activity/Vol] 141 U/L High 45-117 [facility] Serum or plasma calcium marlyn urement (mass/volume)Ordered By: Kemi Rubio on 03-24-2024 Calcium [Mass/Vol] 9.2 mg/dL 8.5-10.1 [facility] Serum or plasma creatinine m easurement (mass/volume)Ordered By: Kemi Rubio on 03-24-2024 Creatinine [Mass/Vol] 0.62 mg/dL Low 0.70-1.30 [facility] Comment on above: The validity of the calculated GFR & GFRAA in patients over 70 years has not been determined. Clinical correlation is essential. Serum or plasma urea nitroge n measurement (mass/volume)Ordered By: Kemi Rubio on 03-24-2024 Urea nitrogen [Mass/Vol] 13 mg/dL 7- [facility] Serum prealbumin measurement by immunoassayOrdered By: Kemi Rubio on 03-24-2024 Prealbumin [Mass/Vol] 22 mg/dL [facility] Comment on above: Performed at: [address] Director: Rayo Wilkinson PhD, Phone: [phone] Sodium levelOrdered By: Darryl Rubio on 03-24-2024 Sodium [Moles/Vol] 137 mmol/L 136-145 [facility] Total proteinOrdered By: John Rubio on 03-24-2024 Protein [Mass/Vol] 7.1 g/dL 6.4-8.2 [facility] White blood cell (WBC) count Ordered By: Kemi Rubio on 03-24-2024 WBC (Bld) [#/Vol] 5.8 10*3/uL 4.4-11.0 [facility] 36on 01-29-2024 36 Name of caller: Radha coronel Contact phone number: [phone] Relationship to Patient: [facility] Provider: Dr Casas Practice: Urology Chief Complaint/Reason for Call: Jaqueline stated that a voicemail was left on her managers phone and was calling back. Tried to call back line, no answer. Please call Jaqueline back to advise. Best time of day caller can be reached: Any Patient advised that office/PCP has 24-48 business hours to return their call: N/A Normal [facility] 36on 01-26-2024 36 Letter faxed to [facility] - ATTN: Jaqueline Your fax has been successfully sent to [facility] at [phone]. 01/26/2024 7:53:04 AM Conversion Record Successfully created cover sheet. Type: application/vnd.Chatterous mlformats-officedocum [email or web address]. document G3 to TIFF #1: Success [image/g3] (48ms) GhostScript TIFF #1: Success [image/tiff] (190ms) Resubmitted: [application/postscri pt] Word Automation #1: Success [image/tiff] (1534ms) ([id number] V2) 01/26/2024 7:52:58 AM Transmission Record Sent to [id number] with remote ID [id number] Result: (0) Success Page record: 1 - 3 Elapsed time: 03:18 on channel 48 01/26/2024 7:52:47 AM Conversion Record [[id number]] Type: application/postscrip t G3 to TIFF #1: Success [image/g3] (64ms) GhostScript TIFF #1: Success [image/tiff] (379ms) ([id number] V1) 01/26/2024 7:52:40 AM Origin Record Created by [facility] 36on 01-25-2024 36 A letter has been created for home health orders. Please fax to home health agency. Thank you [facility] 36 Patient's spouse called and wanted to let us know that patient is in the ER at [facility] due to SPT being clogged. Home care saw patient this AM but could not change patient's catheter as they do not have orders to change SPT or flush it. Spoke with home care nurse Janell with [facility]. Janell states patient has been an established patient with them for a long time and the SPT is new. Currently they do not have orders to manage SPT. Per spouse they saw Dr. Casas on Thursday and orders were going to be written. Orders need created and faxed. Contact information included below. [facility]. [phone]. ATTN: Jaqueline [place] [address] Noted. [place] [address] S: Patient's home nurse Rod spoke with [facility] nurse regarding no urine in catheter B: Onset of symptoms/concern Thursday A: Rod, nurse with [facility], states that patient does not have urine [...] used: Urinary Catheter (e.g., Benson) Symptoms and [id number] [facility] 36 Fiorella LVM stating she needs a verbal order stating the size of the SPT tube and frequency. Called Fiorella back and advised per last OV note that pt uses a #16fr SPT and it is to be changed monthly. Fiorella verbalized understanding. [facility] Anaerobic cultureOrdered By: Kemi Rubio on 04-06-2023 Bacteria identified Anaer cx Nom (Unsp spec) No anaerobic bacteria isolated. [facility] Bacteria identified Anaer cx Nom (Unsp spec) No anaerobic bacteria isolated. [facility] Bacteria identified Cx Nom ( Wound)Ordered By: Kemi Rubio on 04-06-2023 Wound Culture Staphylococcus aureus [facility] Wound Culture Corynebacterium striatum [facility] Wound Culture Enterococcus faecalis [facility] Wound Culture Staphylococcus aureus [facility] Wound Culture Corynebacterium striatum [facility] Wound Culture Enterococcus faecalis [facility] Gram stain for investigation of transfusion reactionOrdered By: Kemi Ramiro on 04-06-2023 Microscopic observation Gram stain Nom (Unsp spec) [facility] Microscopic observation Gram stain Nom (Unsp spec) [facility] Anaerobic cultureOrdered By: Kemi Ramiro on 11-11-2022 Bacteria identified Anaer cx Nom (Unsp spec) No anaerobic bacteria isolated. [facility] Bacteria identified Cx Nom ( Wound)Ordered By: Kemi Ramiro on 11-11-2022 Wound Culture Staphylococcus aureus [facility] Gram stain for investigation of transfusion reactionOrdered By: Kemi Ramiro on 11-11-2022 Microscopic observation Gram stain Nom (Unsp spec) [facility] Anaerobic cultureOrdered By: Kemi Ramiro on 11-10-2022 Bacteria identified Anaer cx Nom (Unsp spec) No anaerobic bacteria isolated. [facility] Bacteria identified Cx Nom ( Wound)Ordered By: Kemi Ramiro on 11-10-2022 Wound Culture Staphylococcus aureus [facility] Gram stain for investigation of transfusion reactionOrdered By: Kemi Ramiro on 11-10-2022 Microscopic observation Gram stain Nom (Unsp spec) [facility] Basophil percentageOrdered B y: Gera Smith on 10-17-2022 Chloride [Moles/Vol] 107 mmol/L 98-107 [facility] Glucose [Mass/Vol] 100 mg/dL 74-106 [facility] Comment on above: Fasting Glucose resu lt from 100 to 125 mg/dL suggests IMPAIRED HOMEOSTASIS per A.D.A. criteria. Potassium [Moles/Vol] 3.7 mmol/L 3.5-5.1 [facility] Sodium [Moles/Vol] 139 mmol/L 136-145 [facility] WBC (Bld) [#/Vol] 8.2 10*3/uL 4.4-11.0 [facility] Blood erythrocytes count (nu mber/volume)Ordered By: Gera Smith on 10-17-2022 RBC (Bld) [#/Vol] 5.03 10*6/uL 4.6-6.2 [facility] Blood hemoglobin measurement (mass/volume)Ordered By: Gera Smith on 10-17-2022 Hemoglobin (Bld) [Mass/Vol] 13.9 g/dL 13.0-16.5 [facility] Blood platelet mean volumeOr dered By: Gera Smith on 10-17-2022 Platelet mean volume (Bld) [Entitic vol] 9.8 fL 6.2-12.0 [facility] Determination of erythrocyte mean corpuscular volume (MCV)Ordered By: Gera Smith on 10-17-2022 MCV (RBC) [Entitic vol] 87.3 fL 80-94 [facility] Hematocrit Auto (Bld) [Volum e fraction]Ordered By: Gera Smith on 10-17-2022 Hematocrit (Bld) [Volume fraction] 43.9 % 40-54 [facility] Laboratory - Chemistry and C hemistry - challengeOrdered By: Gera Smith on 10-17-2022 CO2 [Moles/Vol] 28.0 mmol/L 21.0-32.0 [facility] Urea nitrogen/Creatinine [Mass ratio] 14.2 mg/mg 10-20 [facility] Laboratory - Hematology and Cell countsOrdered By: Gera Smith on 10-17-2022 Erythrocyte distribution width (RBC) [Entitic vol] 58.8 fL 35.1-43.9 [facility] Erythrocyte distribution width (RBC) [Ratio] 18.6 % 11.6-14.6 [facility] MCH (RBC) [Entitic mass] 27.6 pg 27.0-32.0 [facility] MCHC Auto (RBC) [Mass/Vol]Or dered By: Gera Smith on 10-17-2022 MCHC (RBC) [Mass/Vol] 31.7 g/dL 32-36 [facility] No Panel InformationOrdered By: Gera Smith on 10-17-2022 Estimated GFR (MDRD) Amer 187 mL/min >60 [facility] Comment on above: GFR Calc Estimated GFR (MDRD) Non-Af Amer 154 mL/min >60 [facility] Comment on above: Non- GFR Calc Thyroid Stimulating Hormone (TSH) 0.12 uIU/mL 0.358-3.74 [facility] Platelets bldOrdered By: Wendy Smith on 10-17-2022 Platelets (Bld) [#/Vol] 415 10*3/uL 150-450 [facility] Serum or plasma calcium marlyn urement (mass/volume)Ordered By: Gera Smith on 10-17-2022 Calcium [Mass/Vol] 9.3 mg/dL 8.5-10.1 [facility] Serum or plasma creatinine m easurement (mass/volume)Ordered By: Gera Smith on 10-17-2022 Creatinine [Mass/Vol] 0.56 mg/dL 0.70-1.30 [facility] Comment on above: The validity of the calculated GFR & GFRAA in patients over 70 years has not been determined. Clinical correlation is essential. Serum or plasma urea nitroge n measurement (mass/volume)Ordered By: Gera Smith on 10-17-2022 Urea nitrogen [Mass/Vol] 8 mg/dL 7-18 [facility] Thin prep Papanicolaou smear with manual screeningOrdered By: Gera Smith on 10-17-2022 Thin prep Papanicolaou smear with manual screening 4 5-15 [facility] Anaerobic cultureOrdered By: Kemi Rubio on 07-18-2022 Bacteria identified Anaer cx Nom (Unsp spec) No anaerobic bacteria isolated. [facility] Bacteria identified Cx Nom ( Wound)Ordered By: Kemi Rubio on 07-16-2022 Wound Culture Staphylococcus aureus [facility] Wound Culture Positive [facility] Gram stain for investigation of transfusion reactionOrdered By: Kemi Rubio on 07-15-2022 Microscopic observation Gram stain Nom (Unsp spec) [facility] Anaerobic cultureOrdered By: Kemi Rubio on 07-14-2022 Bacteria identified Anaer cx Nom (Unsp spec) No anaerobic bacteria isolated. [facility] Bacteria identified Cx Nom ( Wound)Ordered By: Kemi Rubio on 07-14-2022 Wound Culture Staphylococcus aureus [facility] Wound Culture Positive [facility] Gram stain for investigation of transfusion reactionOrdered By: Kemi Rubio on 07-14-2022 Microscopic observation Gram stain Nom (Unsp spec) [facility] Fungus cultureOrdered By: Dr Cinthia Messina on 05-29-2022 Fungus identified Cx Nom (Unsp spec) [facility] Fungus stainOrdered By: Dr. Messina on 05-29-2022 Fungus identified Fungus stain Nom (Unsp spec) [facility] Bacteria identified Cx Nom ( Wound)Ordered By: Dr. Messina on 05-07-2022 Wound Culture Staphylococcus aureus [facility] Wound Culture Corynebacterium striatum [facility] Absolute lymphocyte countOrd ered By: Dr. Singh on 05-02-2022 Lymphocytes Auto (Unsp spec) [#/Vol] 1.72 10*3/uL 0.83-4.51 [facility] Anaerobic cultureOrdered By: Dr. Messina on 05-02-2022 Bacteria identified Anaer cx Nom (Unsp spec) [facility] Basophil percentageOrdered B y: Dr. Singh on 05-02-2022 Basophils/100 WBC (Bld) 0.6 % 0-1 [facility] Chloride [Moles/Vol] 99 mmol/L 98-107 [facility] Eosinophils/100 WBC (Bld) 2.3 % 0-5 [facility] Glucose [Mass/Vol] 115 mg/dL 74-106 [facility] Comment on above: Fasting Glucose resu lt from 100 to 125 mg/dL suggests IMPAIRED HOMEOSTASIS per A.D.A. criteria. Neutrophils (Bld) [#/Vol] 7.8 10*3/uL 2.0-7.7 [facility] Neutrophils/100 WBC (Bld) 69.8 % 47-70 [facility] Potassium [Moles/Vol] 4.2 mmol/L 3.5-5.1 [facility] Sodium [Moles/Vol] 134 mmol/L 136-145 [facility] WBC (Bld) [#/Vol] 11.1 10*3/uL 4.4-11.0 [facility] Blood erythrocytes count (nu mber/volume)Ordered By: Dr. Singh on 05-02-2022 RBC (Bld) [#/Vol] 4.86 10*6/uL 4.6-6.2 [facility] Blood hemoglobin measurement (mass/volume)Ordered By: Dr. Singh on 05-02-2022 Hemoglobin (Bld) [Mass/Vol] 13.3 g/dL 13.0-16.5 [facility] Blood lymphocytes/100 leukoc ytesOrdered By: Dr. Singh on 05-02-2022 Lymphocytes/100 WBC (Bld) 15.5 % 19-41 [facility] Blood monocytes/100 leukocyt esOrdered By: Dr. Singh on 05-02-2022 Monocytes/100 WBC (Bld) 10.8 % 0-10 [facility] Blood platelet mean volumeOr dered By: Dr. Singh on 05-02-2022 Platelet mean volume (Bld) [Entitic vol] 9.7 fL 6.2-12.0 [facility] Determination of erythrocyte mean corpuscular volume (MCV)Ordered By: Dr. Singh on 05-02-2022 MCV (RBC) [Entitic vol] 85.0 fL 80-94 [facility] Hematocrit Auto (Bld) [Volum e fraction]Ordered By: Dr. Singh on 05-02-2022 Hematocrit (Bld) [Volume fraction] 41.3 % 40-54 [facility] Laboratory - Chemistry and C hemistry - challengeOrdered By: Dr. Singh on 05-02-2022 CO2 [Moles/Vol] 28.0 mmol/L 21.0-32.0 [facility] Urea nitrogen/Creatinine [Mass ratio] 22.5 mg/mg 10-20 [facility] Laboratory - Hematology and Cell countsOrdered By: Dr. Singh on 05-02-2022 Erythrocyte distribution width (RBC) [Entitic vol] 53.9 fL 35.1-43.9 [facility] Erythrocyte distribution width (RBC) [Ratio] 17.6 % 11.6-14.6 [facility] Immature granulocytes/100 WBC (Bld) 1.000 % 0.0-0.9 [facility] Comment on above: IG% - Immature Granu locytes (promyelocytes, myelocytes and metamyelocytes) > 1% indicates that a LEFT SHIFT is Present. MCH (RBC) [Entitic mass] 27.4 pg 27.0-32.0 [facility] Nucleated RBC/100 WBC (Bld) [Ratio] 0 % 0-5 [facility] Auto (RBC) [Mass/Vol]Or dered By: Dr. Singh on 05-02-2022 MCHC (RBC) [Mass/Vol] 32.2 g/dL 32-36 [facility] No Panel InformationOrdered By: Dr. Singh on 05-02-2022 Estimated Creatinine Clearance Calc 99.19 ml/min [facility] Estimated GFR (MDRD) Amer 153 mL/min >60 [facility] Comment on above: GFR Calc Estimated GFR (MDRD) Non-Af Amer 127 mL/min >60 [facility] Comment on above: Non- GFR Calc Platelets bldOrdered By: Dr. Singh on 05-02-2022 Platelets (Bld) [#/Vol] 375 10*3/uL 150-450 [facility] Serum or plasma calcium marlyn urement (mass/volume)Ordered By: Dr. Singh on 05-02-2022 Calcium [Mass/Vol] 9.5 mg/dL 8.5-10.1 [facility] Serum or plasma creatinine m easurement (mass/volume)Ordered By: Dr. Singh on 05-02-2022 Creatinine [Mass/Vol] 0.67 mg/dL 0.70-1.30 [facility] Comment on above: The validity of the calculated GFR & GFRAA in patients over 70 years has not been determined. Clinical correlation is essential. Serum or plasma urea nitroge n measurement (mass/volume)Ordered By: Dr. Singh on 05-02-2022 Urea nitrogen [Mass/Vol] 15 mg/dL 7-18 [facility] Thin prep Papanicolaou smear with manual screeningOrdered By: Dr. Singh on 05-02-2022 Thin prep Papanicolaou smear with manual screening 7 5-15 [facility] Bacteria identified Cx Nom ( Wound)Ordered By: Dr. Messina on 05-01-2022 Wound Culture Staphylococcus aureus [facility] Wound Culture Corynebacterium striatum [facility] Wound Culture Staphylococcus aureus [facility] Wound Culture Corynebacterium striatum [facility] Basophil percentageOrdered B y: Dr. Messina on 04-29-2022 Chloride [Moles/Vol] 102 mmol/L 98-107 [facility] Glucose [Mass/Vol] 89 mg/dL 74-106 [facility] Potassium [Moles/Vol] 4.3 mmol/L 3.5-5.1 [facility] Sodium [Moles/Vol] 137 mmol/L 136-145 [facility] WBC (Bld) [#/Vol] 6.2 10*3/uL 4.4-11.0 [facility] Blood erythrocytes count (nu mber/volume)Ordered By: Dr. Messina on 04-29-2022 RBC (Bld) [#/Vol] 4.38 10*6/uL 4.6-6.2 [facility] Blood hemoglobin measurement (mass/volume)Ordered By: Dr. Messina on 04-29-2022 Hemoglobin (Bld) [Mass/Vol] 11.9 g/dL 13.0-16.5 [facility] Blood platelet mean volumeOr dered By: Dr. Messina on 04-29-2022 Platelet mean volume (Bld) [Entitic vol] 9.5 fL 6.2-12.0 [facility] Determination of erythrocyte mean corpuscular volume (MCV)Ordered By: Dr. Messina on 04-29-2022 MCV (RBC) [Entitic vol] 85.8 fL 80-94 [facility] Gram stain for investigation of transfusion reactionOrdered By: Dr. Messina on 04-29-2022 Microscopic observation Gram stain Nom (Unsp spec) [facility] Microscopic observation Gram stain Nom (Unsp spec) [facility] Hematocrit Auto (Bld) [Volum e fraction]Ordered By: Dr. Messina on 04-29-2022 Hematocrit (Bld) [Volume fraction] 37.6 % 40-54 [facility] Laboratory - Chemistry and C hemistry - challengeOrdered By: Dr. Messina on 04-29-2022 CO2 [Moles/Vol] 29.0 mmol/L 21.0-32.0 [facility] Urea nitrogen/Creatinine [Mass ratio] 18.1 mg/mg 10-20 [facility] Laboratory - Hematology and Cell countsOrdered By: Dr. Messina on 04-29-2022 Erythrocyte distribution width (RBC) [Entitic vol] 55.2 fL 35.1-43.9 [facility] Erythrocyte distribution width (RBC) [Ratio] 17.6 % 11.6-14.6 [facility] MCH (RBC) [Entitic mass] 27.2 pg 27.0-32.0 [facility] MCHC Auto (RBC) [Mass/Vol]Or dered By: Dr. Messina on 04-29-2022 MCHC (RBC) [Mass/Vol] 31.6 g/dL 32-36 [facility] No Panel InformationOrdered By: Dr. Messina on 04-29-2022 Estimated Creatinine Clearance Calc 151.04 ml/min [facility] Estimated GFR (MDRD) Amer 247 mL/min >60 [facility] Comment on above: GFR Calc Estimated GFR (MDRD) Non-Af Amer 204 mL/min >60 [facility] Comment on above: Non- GFR Calc Platelets bldOrdered By: Dr. Messina on 04-29-2022 Platelets (Bld) [#/Vol] 352 10*3/uL 150-450 [facility] Serum or plasma calcium marlyn urement (mass/volume)Ordered By: Dr. Messina on 04-29-2022 Calcium [Mass/Vol] 8.8 mg/dL 8.5-10.1 [facility] Serum or plasma creatinine m easurement (mass/volume)Ordered By: Dr. Messina on 04-29-2022 Creatinine [Mass/Vol] 0.44 mg/dL 0.70-1.30 [facility] Comment on above: The validity of the calculated GFR & GFRAA in patients over 70 years has not been determined. Clinical correlation is essential. Serum or plasma transthyreti n measurement (mass/volume)Ordered By: Dr. Messina on 04-29-2022 Prealbumin [Mass/Vol] 13.4 mg/dL 20.0-40.0 [facility] Serum or plasma urea nitroge n measurement (mass/volume)Ordered By: Dr. Messina on 04-29-2022 Urea nitrogen [Mass/Vol] 8 mg/dL 7-18 [facility] Thin prep Papanicolaou smear with manual screeningOrdered By: Dr. Messina on 04-29-2022 Thin prep Papanicolaou smear with manual screening 6 5-15 [facility] No Panel InformationOrdered By: Dr. Bruce on 04-28-2022 Thyroid Stimulating Hormone (TSH) 0.63 uIU/mL 0.358-3.74 [facility] Clostridium difficile detect ion by polymerase chain reactionOrdered By: Cristy Verma on 04-04-2022 C. difficile DNA IMER+probe Ql (Unsp spec) [facility] Bacteria identified Anaer cx Nom (Unsp spec)Ordered By: Cristy Verma on 03-06-2022 Anaerobic Culture Clostridium perfringens [facility] Bacteria identified Cx Nom ( Wound)Ordered By: Cristy Verma on 03-02-2022 Wound Culture Escherichia coli [facility] Wound Culture Staphylococcus aureus [facility] Gram stain for investigation of transfusion reactionOrdered By: Cristy Verma on 02-28-2022 Microscopic observation Gram stain Nom (Unsp spec) [facility] Absolute lymphocyte countOrd ered By: Dr. Basurto on 02-08-2022 Lymphocytes Auto (Unsp spec) [#/Vol] 2.11 10*3/uL 0.83-4.51 [facility] Basophil percentageOrdered B y: Dr. Bausrto on 02-08-2022 Basophil percentage 10-25 SEEN /hpf 0-5 [facility] Basophils/100 WBC (Bld) 0.3 % 0-1 [facility] Bilirubin [Mass/Vol] 0.40 mg/dL 0.20-1.00 [facility] Comment on above: For patients on eltr ombopag therapy, use of Dimension [place] TBIL is not recommended. Chloride [Moles/Vol] 103 mmol/L 98-107 [facility] Eosinophils/100 WBC (Bld) 0.3 % 0-5 [facility] Glucose [Mass/Vol] 107 mg/dL 74-106 [facility] Comment on above: Fasting Glucose resu lt from 100 to 125 mg/dL suggests IMPAIRED HOMEOSTASIS per A.D.A. criteria. Neutrophils (Bld) [#/Vol] 13.7 10*3/uL 2.0-7.7 [facility] Neutrophils/100 WBC (Bld) 78.6 % 47-70 [facility] Potassium [Moles/Vol] 3.4 mmol/L 3.5-5.1 [facility] Protein [Mass/Vol] 7.2 g/dL 6.4-8.2 [facility] Sodium [Moles/Vol] 138 mmol/L 136-145 [facility] WBC (Bld) [#/Vol] 17.4 10*3/uL 4.4-11.0 [facility] Bilirubin Test strip Ql (U)O rdered By: Dr. Basurto on 02-08-2022 Bilirubin Ql (U) Negative Negative [facility] Blood erythrocytes count (nu mber/volume)Ordered By: Dr. Basurto on 02-08-2022 RBC (Bld) [#/Vol] 4.47 10*6/uL 4.6-6.2 [facility] Blood hemoglobin measurement (mass/volume)Ordered By: Dr. Basurto on 02-08-2022 Hemoglobin (Bld) [Mass/Vol] 12.7 g/dL 13.0-16.5 [facility] Blood lymphocytes/100 leukoc ytesOrdered By: Dr. Basurto on 02-08-2022 Lymphocytes/100 WBC (Bld) 12.1 % 19-41 [facility] Blood monocytes/100 leukocyt esOrdered By: Dr. Basurto on 02-08-2022 Monocytes/100 WBC (Bld) 7.6 % 0-10 [facility] Blood platelet mean volumeOr dered By: Dr. Basurto on 02-08-2022 Platelet mean volume (Bld) [Entitic vol] 9.9 fL 6.2-12.0 [facility] Determination of erythrocyte mean corpuscular volume (MCV)Ordered By: Dr. Basurto on 02-08-2022 MCV (RBC) [Entitic vol] 88.6 fL 80-94 [facility] Hematocrit Auto (Bld) [Volum e fraction]Ordered By: Dr. Basurto on 02-08-2022 Hematocrit (Bld) [Volume fraction] 39.6 % 40-54 [facility] Ketones Test strip Ql (U)Ord ered By: Dr. Basurto on 02-08-2022 Ketones Ql (U) 5 mg/dl Negative [facility] Laboratory - Chemistry and C hemistry - challengeOrdered By: Dr. Basurto on 02-08-2022 ALP [Catalytic activity/Vol] 98 U/L 45-117 [facility] ALT [Catalytic activity/Vol] 16 U/L 16-61 [facility] CO2 [Moles/Vol] 28.0 mmol/L 21.0-32.0 [facility] Globulin (S) [Mass/Vol] 5.2 g/dL 2.2-4.2 [facility] Urea nitrogen/Creatinine [Mass ratio] 12.8 mg/mg 10-20 [facility] Laboratory - Hematology and Cell countsOrdered By: Dr. Basurto on 02-08-2022 Erythrocyte distribution width (RBC) [Entitic vol] 48.9 fL 35.1-43.9 [facility] Erythrocyte distribution width (RBC) [Ratio] 14.9 % 11.6-14.6 [facility] Immature granulocytes/100 WBC (Bld) 1.100 % 0.0-0.9 [facility] Comment on above: IG% - Immature Granu locytes (promyelocytes, myelocytes and metamyelocytes) > 1% indicates that a LEFT SHIFT is Present. MCH (RBC) [Entitic mass] 28.4 pg 27.0-32.0 [facility] Nucleated RBC/100 WBC (Bld) [Ratio] 0 % 0-5 [facility] MCHC Auto (RBC) [Mass/Vol]Or dered By: Dr. Basurto on 02-08-2022 MCHC (RBC) [Mass/Vol] 32.1 g/dL 32-36 [facility] Mucus LM Ql (Urine sed)Order ed By: Dr. Basurto on 02-08-2022 Mucus Ql (Urine sed) 0 SEEN /hpf [facility] Nitrite Test strip Ql (U)Ord ered By: Dr. Basurto on 02-08-2022 Nitrite Ql (U) Negative Negative [facility] No Panel InformationOrdered By: Dr. Basurto on 02-08-2022 Estimated Creatinine Clearance Calc 107.19 ml/min [facility] Estimated GFR (MDRD) Amer 166 mL/min >60 [facility] Comment on above: GFR Calc Estimated GFR (MDRD) Non-Af Amer 137 mL/min >60 [facility] Comment on above: Non- GFR Calc Platelets bldOrdered By: Dr. Basurto on 02-08-2022 Platelets (Bld) [#/Vol] 410 10*3/uL 150-450 [facility] Protein Test strip Ql (U)Ord ered By: Dr. Basurto on 02-08-2022 Protein Ql (U) 30 mg/dl Negative [facility] Serum or plasma albumin marlyn urement (mass/volume)Ordered By: Dr. Basurto on 02-08-2022 Albumin [Mass/Vol] 2.0 g/dL 3.2-5.0 [facility] Serum or plasma albumin/glob ulin mass ratioOrdered By: Dr. Basurto on 02-08-2022 Albumin/Globulin [Mass ratio] 0.4 {ratio} 0.9-2.4 [facility] Serum or plasma calcium marlyn urement (mass/volume)Ordered By: Dr. Basurto on 02-08-2022 Calcium [Mass/Vol] 9.0 mg/dL 8.5-10.1 [facility] Serum or plasma creatinine m easurement (mass/volume)Ordered By: Dr. Basurto on 02-08-2022 Creatinine [Mass/Vol] 0.62 mg/dL 0.70-1.30 [facility] Comment on above: The validity of the calculated GFR & GFRAA in patients over 70 years has not been determined. Clinical correlation is essential. Serum or plasma urea nitroge n measurement (mass/volume)Ordered By: Dr. Basurto on 02-08-2022 Urea nitrogen [Mass/Vol] 8 mg/dL 7-18 [facility] Squamous epithelial cells de tection in urine sediment by light microscopyOrdered By: Dr. Basurto on 02-08-2022 Epithelial cells.squamous LM Ql (Urine sed) 0 SEEN /hpf 0-5 [facility] Thin prep Papanicolaou smear with manual screeningOrdered By: Dr. Basurto on 02-08-2022 Thin prep Papanicolaou smear with manual screening 12 U/L 15-37 [facility] Thin prep Papanicolaou smear with manual screening 7 5-15 [facility] Urine blood detectionOrdered By: Dr. Basurto on 02-08-2022 RBC Ql (U) 50 /ul Negative [facility] RBC Ql (U) 0 SEEN /hpf 0-5 [facility] Urine clarityOrdered By: Dr. Basurto on 02-08-2022 Clarity (U) Cloudy Clear [facility] Urine color determinationOrd ered By: Dr. Basurto on 02-08-2022 Color (U) Gilma Yellow [facility] Urine glucose detectionOrder ed By: Dr. Basurto on 02-08-2022 Glucose Ql (U) Normal mg/dl Normal [facility] Urine leukocyte esterase det ection by dipstickOrdered By: Dr. Basurto on 02-08-2022 Leukocyte esterase Test strip Ql (U) 100 /ul Negative [facility] Urine pHOrdered By: Dr. Jarod vee on 02-08-2022 pH (U) 8.0 [pH] 5.0 - 8.0 [facility] Urine sediment bacteria coun t by microscopy (number/high power field)Ordered By: Dr. Basurto on 02-08-2022 Bacteria LM.HPF (Urine sed) [#/Area] 4 /[HPF] None Seen [facility] Urine specific gravity measu rementOrdered By: Dr. Basurto on 02-08-2022 Specific gravity (U) [Rel density] 1.010 1.002-1.030 [facility] Urobilinogen Auto test strip Ql (U)Ordered By: Dr. Basurto on 02-08-2022 Urobilinogen Ql (U) 8 mg/dl Normal [facility] CASE MANAGEMon 02-02-2019 CASE MANAGEM HNO ID: [id number] Author: Florence (Rn) JAZZY Mullins Service: Care Management Author Type: Registered Nurse Type: Care Mgt Progress Note Filed: 02/02/2019 12:05 PM Note Text: CARE MANAGEMENT DISCHARGE NOTE SERVICE DATE: 02/02/2019 SERVICE TIME: 12:01 PM LOS: 11 days Admission Date: 01/22/2019 DISCHARGE ARRANGEMENT (list agency and phone number) [facility]P facility: Was an expedited discharge program used? No Provider: Andrea at [facility] CAREGIVER ASSESSMENT: Caregiver is ready, willing and able to meet the patient's needs as recommended by the inter-professional team? Yes Patient's transition needs and plan for meeting these needs: SNF at [facility] Does the patient have an acute stroke diagnosis, or has the patient had a stroke during this admission? No HANDOFF COMMUNICATION: Primary Care Physician: Name: Dr Brian Cardona Bedside nurse. Patient and Dasia. Summary of care sent to PCP Dr Cardona and [facility] TRANSPORTATION ARRANGEMENTS: Mode of Transportation: Ambulance Transportation Agency and Phone #: [facility] ( [facility] ) [phone] / [phone]. Date of Trip: 02/02/2019 Type of Service: BLS Non-emergency Is Patient Medicaid Pending: No Discussion of financial coverage occurred with Patient and Spouse . Groundskeeping Yardman Location: room 264 Destination: [facility] Financial Care Management Responsibility: None Estimated Charge: 0 Approving Tubing Machine Operator: YOSELIN ADDITIONAL CONTACT RESOURCES: NA Discharge written for patient to go to [facility] SNF. Pt and agreeable. Precert obtained. Ambulance transport arranged per 's request. Discussed with her possibility of out of pocket expense after billed to insurance. Ambulance scheduled for 3 PM machine pecan picker. SIGNATURE: Florence Mullins RN PATIENT NAME: Jorge Covington DATE: February 02, 2019 TIME: 12:01 PM PAGER/CONTACT #: [phone] [facility] CASE MANAGEM HNO ID: [id number] Author: Florence (Rn) JAZZY Mullins Service: Care Management Author Type: Registered Nurse Type: Care Mgt Progress Note Filed: 02/02/2019 11:08 AM Note Text: CARE MANAGEMENT PROGRESS NOTE SERVICE DATE: 02/02/2019 SERVICE TIME: 11:08 AM LOS: 11 days IM letter given to patient on 02/02/2019. IM letter given and explained to patient. Precert obtained and pt to be discharged to [facility] today. Transportation arranged for 3 PM machine pecan picker. SIGNATURE: Florence Mullins RN PATIENT NAME: Jorge Covington DATE: February 02, 2019 TIME: 11:08 AM PAGER/CONTACT #: [phone] [facility] CBCon 02-02-2019 Erythrocyte distribution width (RBC) [Ratio] 17.4 % High 11.5-15.0 [facility] Comment on above: Performed By: #### C BC, CMP ####[facility] Cthxydbtoi2200 [phone] Hematocrit (Bld) [Volume fraction] 40.7 % Normal 39.0-51.0 [facility] Comment on above: Performed By: #### C RAFAEL, CMP ####[facility] Ffmchypxet0641 [phone] Hemoglobin (Bld) [Mass/Vol] 13.0 g/dL Normal 13.0-17.0 [facility] Comment on above: Performed By: #### C RAFAEL, CMP ####[facility] [address] [place] [address] MCH (RBC) [Entitic mass] 30.0 pG Normal 26.0-34.0 [facility] Comment on above: Performed By: #### C RAFAEL, CMP ####[facility] X[address] [place] [address] MCHC (RBC) [Mass/Vol] 31.9 g/dL Normal 30.5-36.0 [facility] Comment on above: Performed By: #### C RAFAEL, CMP ####[facility] [address] [place] [address] MCV (RBC) [Entitic vol] 94.0 fL Normal 80.0-100.0 [facility] Comment on above: Performed By: #### C RAFAEL, CMP ####[facility] [address] [place], [place] [phone] Platelet mean volume (Bld) [Entitic vol] 9.5 fL Normal 9.0-12.7 [facility] Comment on above: Performed By: #### C RAFAEL, CMP ####[facility] Idvqqtostq8464 [address]5160 Platelets (Bld) [#/Vol] 383 10*3/uL Normal 150-400 [facility] Comment on above: Performed By: #### C RAFAEL, CMP ####[facility] Aguunpbuos2400 [address]5160 RBC (Bld) [#/Vol] 4.33 10*6/uL Normal 4.20-6.00 [facility] Comment on above: Performed By: #### C RAFAEL, CMP ####[facility] [address] [place], [place] [phone] WBC (Bld) [#/Vol] 10.09 10*3/uL Normal 3.70-11.00 [facility] Comment on above: Performed By: #### C BC, CMP ####[facility] Devqjyiszh6614 [phone] CNCOon 02-02-2019 CNCO Letter Text Normal [facility] CONSULT PROGon 02-02-2019 CONSULT PROG HNO ID: [id number] Author: Magy Orosco Service: Gastroenterology Author Type: [...] (97.8 ?F) Temporal 82 20 ? ? 02/01/190 99/55 36.9 ?C (98.5 ?F) Temporal 82 18 93 % ? 02/01/191954 ? ? ? 88 18 ? ? 02/01/191944 ? ? ? 88 18 94 % ? 02/01/19 1452 121/83 36.7 ?C (98 ?F) Temporal 87 18 93 % ? GENERAL: Alert AND oriented x 3. Cooperative. NAD EYES: No scleral icterus SKIN: [place] in color. No jaundice LUNGS: Scattered rhonchi [...] Liver Function, Amylase, AND Lipase Recent Labs 02/02/19428 TPROT 7.4 ALB 3.8* ALT 15 AST [...] COLONOSCOPY Patient reports many years ago at [facility] - further details unknown SIGNATURE: Mimi Ace, STORE STOCK HELP DATE: February 02, 2019 TIME: 2:05 PM Normal [facility] Comp Metabolic Panelon 02-02 Albumin [Mass/Vol] 3.8 g/dL Low 3.9-4.9 [facility] Comment on above: Performed By: #### C BC, CMP ####[facility] [address] [place] [address] ALP [Catalytic activity/Vol] 64 U/L Normal 38-113 [facility] Comment on above: Performed By: #### C BC, CMP ####[facility] [address] [place] [address] ALT [Catalytic activity/Vol] 15 U/L Normal 10-54 [facility] Comment on above: Performed By: #### C BC, CMP ####[facility] [address] [place] [address] Anion gap [Moles/Vol] 11 mmol/L Normal 9-18 [facility] Comment on above: Performed By: #### C BC, CMP ####[facility] [address] [place] [address] AST [Catalytic activity/Vol] 15 U/L Normal 14-40 [facility] Comment on above: Performed By: #### C BC, CMP ####[facility] [address] [place] [address] Bilirubin [Mass/Vol] 0.5 mg/dL Normal 0.2-1.3 [facility] Comment on above: Performed By: #### C BC, CMP ####[facility] [address] [place] [address] Calcium [Mass/Vol] 9.1 mg/dL Normal 8.5-10.2 [facility] Comment on above: Performed By: #### C BC, CMP ####[facility] Qfoxffhzdt3479 [address]5160 Chloride [Moles/Vol] 99 mmol/L Normal 97-105 [facility] Comment on above: Performed By: #### C BC, CMP ####[facility] [address]rc0782 [place] [phone] CO2 [Moles/Vol] 24 mmol/L Normal 22-30 [facility] Comment on above: Performed By: #### C BC, CMP ####[facility] Xjbmmtrasy[address] [place] [address] Creatinine [Mass/Vol] 0.75 mg/dL Normal 0.73-1.22 [facility] Comment on above: Performed By: #### C BC, CMP ####[facility] Jzuwgetxmw3175 [address]5160 eGFR- Amer. >60 Normal [facility] Comment on above: Performed By: #### C BC, CMP ####[facility] Pqzgadmehc9736 [address]5160 GFR/1.73 sq M predicted among non-blacks MDRD (S/P/Bld) [Vol rate/Area] mL/min/{1.73_m2} Normal [facility] Comment on above: Result Comment: eGFR [...] GFR. Performed By: #### C BC, CMP ####[facility] Lypsulcmwq5993 [address]5160 Glucose [Mass/Vol] 123 mg/dL High 74-99 [facility] Comment on above: Result Comment: The [place] Diabetes Association (ADA) provides guidance for cutoff [...] Standards of Medical Care in Diabetes 2016, [place] [employer]. Diabetes Care. 2016.39(Suppl 1). Performed By: #### C BC, CMP ####[facility] [address] [place] [address] Potassium [Moles/Vol] 4.4 mmol/L Normal 3.7-5.1 [facility] Comment on above: Performed By: #### C BC, CMP ####[facility] Cwkmmhovvl4332 [place] [address] Protein [Mass/Vol] 7.4 g/dL Normal 6.3-8.0 [facility] Comment on above: Performed By: #### C BC, CMP ####[facility] [address] [place] [address] Sodium [Moles/Vol] 134 mmol/L Low 136-144 [facility] Comment on above: Performed By: #### C BC, CMP ####[facility] [address] [place] [address] Urea nitrogen [Mass/Vol] 21 mg/dL Normal 9-24 [facility] Comment on above: Performed By: #### C BC, CMP ####[facility] [address] [place] [address] THERAPY NTon 02-02-2019 THERAPY NT HNO ID: [id number] Author: Brook (Supervisor Sound Technician) Jama Marie CCC/FLIGHT CONTROLS ENGINEER Service: Speech/Swallow Author Type: Speech Language Pathologist Type: Therapy (PT/OT/Speech/Resp) Filed: 02/02/2019 9:27 AM Note Text: Speech Therapy Treatment SERVICE DATE: 02/02/2019 SERVICE TIME: 0850 to 0920 ROOM: [place] [address] Nursing Recommendations: Reinforce use of swallowing strategies [...] suspect Esophageal Dysphagia) Interventions Provided: Dysphagia Therapy (62198) $ Dysphagia Therapy (87068) Billed Units: 1 unit Skilled Interventions: Instructed [...] for this therapy evaluation/treatment. SIGNATURE: Brook Marie [facility]-FLIGHT CONTROLS ENGINEER PATIENT NAME: Jorge Covington DATE: February 02, 2019 TIME: 9:23 AM [facility] ANES Diana 02-01-2019 ANES POST HNO ID: [id number] Author: Orlando Sparks MD Service: Anesthesiology Author [...] Remarks: SIGNATURE: Orlando Sparks MD PATIENT NAME: Jogre Covington DATE: February 01, 2019 TIME: 12:29 PM PAGER/CONTACT #: [facility] ANES PREOPon 02-01-2019 ANES PREOP HNO ID: [id number] Author: Lemuel Beal Service: Anesthesiology Author Type: [...] Without Sciatica Copd (Chronic Obstructive Pulmonary Disease) ([facility]) Hypothyroidism Gerd (Gastroesophageal Reflux Disease) Overactive Bladder Septicemia Due to Klebsiella Pneumoniae ([facility]) PAST MEDICAL HISTORY Diagnosis Date - Closed fracture of cervical vertebra ([facility]) 05/07/2018 - Closed fracture of thoracic vertebra with routine healing 05/07/2018 - COPD (chronic obstructive pulmonary disease) ([facility]) - History of cervical fracture 01/28/2018 - Hypothyroidism - 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 No pertinent surgical history. [...] mg INTRAVENOUS BID AC (0600/1600) Everton Gomes (Finisher Map And Chart) [place] 40 mg at 02/01/19 0534 - [MAR [...] February 01, 2019 TIME: 11:14 AM CSN: [id number] Normal [facility] Basic Metabolic Panlon 02-01 Anion gap [Moles/Vol] 12 mmol/L Normal 9-18 [facility] Comment on above: Performed By: #### C RAFAEL, BMP ####[facility] [address] [place] [address] Calcium [Mass/Vol] 9.7 mg/dL Normal 8.5-10.2 [facility] Comment on above: Performed By: #### C BC, BMP ####[facility] [address] [place] [address] Chloride [Moles/Vol] 100 mmol/L Normal 97-105 [facility] Comment on above: Performed By: #### C BC, BMP ####[facility] [address] [place] [address] CO2 [Moles/Vol] 24 mmol/L Normal 22-30 [facility] Comment on above: Performed By: #### C BC, BMP ####[facility] [address] [place] [address] Creatinine [Mass/Vol] 0.71 mg/dL Low 0.73-1.22 [facility] Comment on above: Performed By: #### C BC, BMP ####[facility] S[address] [place] [address] eGFR- Amer. >60 Normal [facility] Comment on above: Performed By: #### C BC, BMP ####[facility] [address]ys[address] [place] [address] GFR/1.73 sq M predicted among non-blacks MDRD (S/P/Bld) [Vol rate/Area] mL/min/{1.73_m2} Normal [facility] Comment on above: Result Comment: eGFR [...] GFR. Performed By: #### C BC, BMP ####[facility] Jbwppyuegr5071 [address]5160 Glucose [Mass/Vol] 124 mg/dL High 74-99 [facility] Comment on above: Result Comment: The [place] Diabetes Association (ADA) provides guidance for cutoff [...] Standards of Medical Care in Diabetes 2016, [place] [employer]. Diabetes Care. 2016.39(Suppl 1). Performed By: #### C BC, BMP ####[facility] [address]23[address] [place] [address] Potassium [Moles/Vol] 4.5 mmol/L Normal 3.7-5.1 [facility] Comment on above: Performed By: #### C BC, BMP ####[facility] [address] [place] [address] Sodium [Moles/Vol] 136 mmol/L Normal 136-144 [facility] Comment on above: Performed By: #### C BC, BMP ####[facility] [address]wsdt1510 [place] [address] Urea nitrogen [Mass/Vol] 22 mg/dL Normal 9-24 [facility] Comment on above: Performed By: #### C RAFAEL, BMP ####[facility] [address]z9362 [place] [address] CASE MANAGEMon 02-01-2019 CASE MANAGEM HNO ID: [id number] Author: Florence (Rn) JAZZY Mullins Service: Care Management Author Type: Registered Nurse Type: Care Mgt Progress Note Filed: 02/01/2019 4:33 PM Note Text: CARE MANAGEMENT PROGRESS NOTE SERVICE DATE: 02/01/2019 SERVICE TIME: 09:00 AM LOS: 10 days Needs Prior to Discharge: Discharge Transportation;Other: See Comment(medical clearance) Precert obtained from insurance for [place] at [facility]. Call placed to Dasia to update. She [...] 01, 2019 TIME: 4:31 PM PAGER/CONTACT #: [phone] Normal [facility] CBCon 02-01-2019 Erythrocyte distribution width (RBC) [Ratio] 17.5 % High 11.5-15.0 [facility] Comment on above: Performed By: #### C RAFAEL, BMP ####[facility] [address]w9917 [place] [address] Hematocrit (Bld) [Volume fraction] 42.5 % Normal 39.0-51.0 [facility] Comment on above: Performed By: #### C RAFAEL, BMP ####[facility] [address]um[address] [place] [address] Hemoglobin (Bld) [Mass/Vol] 13.6 g/dL Normal 13.0-17.0 [facility] Comment on above: Performed By: #### C RAFAEL, BMP ####[facility] V[address]g75[address] [place] [address] MCH (RBC) [Entitic mass] 29.6 pG Normal 26.0-34.0 [facility] Comment on above: Performed By: #### C RAFAEL, BMP ####[facility] [address] [place] [address] MCHC (RBC) [Mass/Vol] 32.0 g/dL Normal 30.5-36.0 [facility] Comment on above: Performed By: #### Beatriz HALL, BMP ####[facility] [address] [place] [address] MCV (RBC) [Entitic vol] 92.6 fL Normal 80.0-100.0 [facility] Comment on above: Performed By: #### Beatriz HALL, BMP ####[facility] [address]oybb3967 [place] [address] Platelet mean volume (Bld) [Entitic vol] 9.5 fL Normal 9.0-12.7 [facility] Comment on above: Performed By: #### Beatriz HALL, BMP ####[facility] Hefmobfegy4027 [address] Platelets (Bld) [#/Vol] 405 10*3/uL High 150-400 [facility] Comment on above: Performed By: #### Beatriz HALL, BMP ####[facility] Dwglbtcuif0538 [address]5[address] RBC (Bld) [#/Vol] 4.59 10*6/uL Normal 4.20-6.00 [facility] Comment on above: Performed By: #### Beatriz HALL, BMP ####[facility] [address]ez04[address] [place] [address] WBC (Bld) [#/Vol] 11.05 10*3/uL High 3.70-11.00 [facility] Comment on above: Performed By: ###Olamide HALL, BMP ####[facility] [address]20[address] [place] [address] CONSULTon 02-01-2019 CONSULT HNO ID: [id number] Author: Magy Orosco Service: Gastroenterology Author Type: Physician Type: Consults Filed: 02/01/2019 11:29 AM Note Text: GASTROENTEROLOGY CONSULT NOTE PATIENT NAME: Jorge Covington SERVICE DATE: February 01, 2019 SERVICE TIME: 9:16 AM PRIMARY CARE PHYSICIAN: Brian Cardona MD ATTENDING PHYSICIAN: Shirley Romo MD REASON FOR ADMISSION: Altered mental status and hypoxia REASON FOR CONSULTATION: Dysphagia HPI: This is a 63 year old male with a past medical history significant for COPD, hypothyroidism, GERD who was admitted to [facility] 01/22/19 with acute respiratory failure with hypercapnea. [...] Cooperative. NAD EYES: No scleral icterus SKIN: [place] in color. No jaundice LUNGS: Scattered rhonchi [...] COLONOSCOPY Patient reports many years ago at [facility] - further details unknown ASSESSMENT 1- Esophageal [...] 01, 2019 TIME: 9:16 AM [facility] NURSING PROGon 02-01-2019 NURSING PROG HNO ID: [id number] Author: Zac Lowe) JAZZY Lyles Service: Nursing Author Type: Registered Nurse Type: Nursing Progress Note Filed: 02/01/2019 1:58 PM Note Text: Nursing Progress Note Patient Name: Jorge Covington Patient Location: [place] [id number]/[facility] - Daily Note: Pt awake, a/ox2, on RA, [...] completed by: Zac Lyles RN [facility] NUTRITIONon 02-01-2019 NUTRITION HNO ID: [id number] Author: Yue Marquez Service: Nutrition Therapy Author [...] 01, 2019 TIME: 9:35 AM [facility] PROGRESSon 02-01-2019 PROGRESS HNO ID: [id number] Author: Shirley Romo Service: ? Author Type: [...] ?F) Temporal 82 18 94 % ? 01/31/197 103/69 36.6 ?C (97.8 ?F) Temporal 89 [...] to po thyroid meds tomorrow hypercapnea-resolved Suspect rudy/ohs uti?proteus sensitive to rocephin GNB septicemia?klebsiella sensitive [...] HOURS 01/22/192228 -- 01/22/192229 pneumatic compression stockings (dc,in) 01/22/191814 vte non-pharmacologic prophylaxis - none indicated (dc,in) 01/22/191814 activity - mobilize patient (dc,in) VTE Prophylaxis: VTE prophylaxis appropriate SIGNATURE: hSirley Romo DO PATIENT NAME: Jorge Covington DATE: February 01, 2019 TIME: 11:44 AM PAGER/CONTACT #: [phone] [facility] SURGICAL PATHOLOGYon 019 SURGICAL PATHOLOGY Specimen originated from [facility] Specimen #: [id number] Submitting Physician: MAGY OROSCO M.D. FINAL DIAGNOSIS [...] in one cassette. Gross examination performed at [facility], [address] [place] [address] 02/01/2019 5:08:12 PM Date of Report: 02/02/2019 Date of Procedure: 02/01/2019 Date of Receipt: 02/01/2019 Submitted by: MAGY OROSCO M.D. Location: [address] [place] [address] Diagnostic interpretation performed at [place] [address]. CLIA Number: [id number] [facility] THERAPY NTon 02-01-2019 THERAPY NT HNO ID: [id number] Author: Brook (Supervisor Sound Technician) Jama Marie CCC/FLIGHT CONTROLS ENGINEER Service: Speech/Swallow Author Type: Speech Language Pathologist Type: Therapy (PT/OT/Speech/Resp) Filed: 02/01/2019 8:39 AM Note Text: Speech Therapy Clinical Swallow Evaluation SERVICE DATE: 02/01/2019 SERVICE TIME: 749 ROOM: [id number] Nursing Recommendations: Reinforce use of swallowing strategies [...] the turkey sandwich -while at bedside this FLIGHT CONTROLS ENGINEER noted significant / reoccurring episodes of burping, [...] Esophageal Dysphagia) Interventions Provided: Clinical Swallow Evaluation (97587) $ Clinical Swallow Evaluation (87435) Billed Units: 1 unit Clinical Swallowing assessment [...] for this therapy evaluation/treatment. SIGNATURE: Brook Marie [facility]-FLIGHT CONTROLS ENGINEER PATIENT NAME: Jorge Covington DATE: February 01, 2019 TIME: 8:34 AM Normal [facility] XR CHEST 2V FRONTAL/LATon XR CHEST [...] Bibasilar pleural effusions, underlying processes not excluded. Dental Financial Coordinator: ALDO Transcribe Date/Time: Feb 01 2019 12:29P Dictated by : JANELLE THOMAS MD This examination was interpreted and the report reviewed and electronically signed by: JANELLE THOMAS MD on Feb 01 2019 12:30PM EST [id number] Normal [facility] Basic Metabolic Panlon 01-31 Anion gap [Moles/Vol] 10 mmol/L Normal 9-18 [facility] Comment on above: Performed By: #### C BC, BMP ####[facility] [address] [place], [place] [phone] Calcium [Mass/Vol] 9.4 mg/dL Normal 8.5-10.2 [facility] Comment on above: Performed By: #### C BC, BMP ####[facility] [address]whs7[address] [place] [address] Chloride [Moles/Vol] 103 mmol/L Normal 97-105 [facility] Comment on above: Performed By: #### C BC, BMP ####[facility] Q[address]vnm3490 [place] [address] CO2 [Moles/Vol] 25 mmol/L Normal 22-30 [facility] Comment on above: Performed By: #### C RAFAEL, BMP ####[facility] Iuoedmqace1384 [place] [address] Creatinine [Mass/Vol] 0.77 mg/dL Normal 0.73-1.22 [facility] Comment on above: Performed By: #### C RAFAEL, BMP ####[facility] [address] [place] [address] eGFR- Amer. >60 Normal [facility] Comment on above: Performed By: #### C RAFAEL, BMP ####[facility] [address]ytrgc7092 [place] [address] GFR/1.73 sq M predicted among non-blacks MDRD (S/P/Bld) [Vol rate/Area] mL/min/{1.73_m2} Normal [facility] Comment on above: Result Comment: eGFR [...] GFR. Performed By: #### C BC, BMP ####[facility] [address]ls[address]mb[address] [place] [phone] Glucose [Mass/Vol] 114 mg/dL High 74-99 [facility] Comment on above: Result Comment: The [place] [employer] (ADA) provides guidance for cutoff [...] Standards of Medical Care in Diabetes 2016, [place] [employer]. Diabetes Care. 2016.39(Suppl 1). Performed By: #### C BC, BMP ####[facility] [address] [place] [address] Potassium [Moles/Vol] 4.6 mmol/L Normal 3.7-5.1 [facility] Comment on above: Performed By: #### C , BMP ####[facility] [address] [place] [address] Sodium [Moles/Vol] 138 mmol/L Normal 136-144 [facility] Comment on above: Performed By: #### C , BMP ####[facility] [address] [place] [address] Urea nitrogen [Mass/Vol] 24 mg/dL Normal 9-24 [facility] Comment on above: Performed By: #### C , BMP ####[facility] [address] [place] [address] CASE MANAGEMon 01-31-2019 CASE MANAGEM HNO ID: [id number] Author: Florence (Rn) JAZZY Mullins Service: Care Management Author Type: Registered Nurse Type: Care Mgt Progress Note Filed: 01/31/2019 3:04 PM Note Text: CARE MANAGEMENT PROGRESS NOTE SERVICE DATE: 01/31/2019 SERVICE TIME: 2:59 PM LOS: 9 days Needs Prior to Discharge: Precertification;Disc harge Transportation CM met with patient at bedside and received call from Dasia regarding discharge. Awaiting precert for admission to [facility]. wanted to change SNF location to [facility] she called them and they told her they had a bed. Received call from [facility], unfortunately was transferred to acute rehab area which does have a bed, SNF does not. Patient does not meet criteria for their acute rehab. SNF will not have a bed open until Thursday. Discussed with Dasia this updated information from [facility]. Discussed with her sending pt to [facility] after we get precert, then having them transfer him to [facility] when their bed opens. reluctant to agree, doesn't think the facility will do that. Has had bad experience with another facility in the past. is calling her insurance company and will call back SIGNATURE: Florence Mullins RN PATIENT NAME: Jorge Covington DATE: January 31, 2019 TIME: 2:59 PM PAGER/CONTACT #: [phone] Normal [facility] CBCon 01-31-2019 Erythrocyte distribution width (RBC) [Ratio] 17.6 % High 11.5-15.0 [facility] Comment on above: Performed By: #### C , BMP ####[facility] [address] [place] [address] Hematocrit (Bld) [Volume fraction] 41.3 % Normal 39.0-51.0 [facility] Comment on above: Performed By: #### C , BMP ####[facility] [address] [place] [address] Hemoglobin (Bld) [Mass/Vol] 13.1 g/dL Normal 13.0-17.0 [facility] Comment on above: Performed By: #### C BC, BMP ####[facility] [address] [place] [phone] MCH (RBC) [Entitic mass] 29.6 pG Normal 26.0-34.0 [facility] Comment on above: Performed By: #### C BC, BMP ####[facility] [address] [place] 2965860 MCHC (RBC) [Mass/Vol] 31.7 g/dL Normal 30.5-36.0 [facility] Comment on above: Performed By: #### C BC, BMP ####[facility] Hzkgsvfnzp1359 [address] MCV (RBC) [Entitic vol] 93.4 fL Normal 80.0-100.0 [facility] Comment on above: Performed By: #### C BC, BMP ####[facility] [address] [place] [address] Platelet mean volume (Bld) [Entitic vol] 9.3 fL Normal 9.0-12.7 [facility] Comment on above: Performed By: #### C RAFAEL, BMP ####[facility] Yymooxhete[address] [place] [phone] Platelets (Bld) [#/Vol] 374 10*3/uL Normal 150-400 [facility] Comment on above: Performed By: #### C RAFAEL, BMP ####[facility] [address]xc[address] [place] 2965860 RBC (Bld) [#/Vol] 4.42 10*6/uL Normal 4.20-6.00 [facility] Comment on above: Performed By: #### C RAFAEL, BMP ####[facility] [address] [place], [place] [address] WBC (Bld) [#/Vol] 9.46 10*3/uL Normal 3.70-11.00 [facility] Comment on above: Performed By: #### C RAFAEL, BMP ####[facility] [address] [place], [place] [address] PROGRESSon 01-31-2019 PROGRESS HNO ID: [id number] Author: Everton Gomes (Lawrence) Bam Service: General Internal Medicine Author Type: Nurse Practitioner Type: Progress Notes Filed: 01/31/2019 8:21 PM Note Text: INCIDENTAL PROGRESS NOTE Name: Jorge Covington SERVICE DATE: 01/31/2019 SERVICE TIME: 2010 ATTENDING: Dr. Shirley Romo Subjective INTERVAL HPI: Patient admitted for COPD exacerbation on 01/22. Today nursing calls [facility] [employer] with complaints of patient choking on a turkey sandwich. [employer] [facility] at bedside to see patient and his [...] -States choking and coughing up a turkey [facility] -Make patient NPO -ST consult 2. GERD -Hx of GERD -States increased symptoms -Also has noted #1 -Change PPI to BID IV -Increase HOB -Await ST consult Everton Kuhn APRN.LAWRENCE SIGNATURE: Everton Kuhn APRN.CNP PATIENT NAME: Jorge Covington DATE: January 31, 2019 TIME: 8:11 PM PAGER: [phone] [facility] THERAPY NTon 01-31-2019 THERAPY NT HNO ID: [id number] Author: Drea (Ot/L) Patrica Service: Occupational Therapy Author Type: Occupational Therapist Type: Therapy (PT/OT/Speech/Resp) Filed: 01/31/2019 1:20 PM Note Text: Occupational Therapy Treatment SERVICE DATE: 01/31/2019 SERVICE TIME: 1248 to 1300 ROOM: [place] [address] Recommended Discharge Disposition: Subacute/SNF Recommended Discharge Disposition [...] Cognitive Functions and Awareness Interventions Provided: Self Custodial Management (19334) Self Custodial Management (98856) Treatment Minutes: 12 1 unit Skilled Intervention(s): [...] Care;Shopping;Transpo rtation;Wheelchair Mobility Prior Functional Level 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 SIGNATURE: Drea Burciaga OT/Eliseo PATIENT NAME: Jorge Covington DATE: January 31, 2019 TIME: 1:13 PM [facility] THERAPY NT HNO ID: [id number] Author: Melvi Ledezma Service: Physical Therapy Author Type: Beach Lifeguard Type: Therapy (PT/OT/Speech/Resp) Filed: 02/02/2019 7:17 AM Note Text: Attestation signed by Philip Mccoy at 02/03/2019 7:17 AM I reviewed and agree with the documentation corresponding to this therapy visit. SIGNATURE: Philip Mccoy PT DATE: February 03, 2019 TIME: 7:17 AM Physical Therapy Treatment SERVICE DATE: 01/31/2019 SERVICE TIME: 1235 to 1250 ROOM: [id number] Recommended Discharge Disposition: Subacute/SNF Recommended Discharge Disposition [...] Diagnosis: Reduced mobility-other Interventions Provided: Therapeutic Exercise (30004);Therapeutic Activity (74446) Therapeutic Exercise (71657) Treatment Minutes: 10 1 unit Skilled Intervention(s): [...] frequent performance of anti-embolic exercises Therapeutic Activity (21218) Treatment Minutes: 3 0 units Skilled Intervention(s): [...] walk. Patient appropriate for PT per Darcie HOANG. 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 Comment on above: Performed By: #### C RAFAEL, BMP ####[facility] [address] [place], [place] [phone] Calcium [Mass/Vol] 9.5 mg/dL Normal 8.5-10.2 [facility] Comment on above: Performed By: #### C BC, BMP ####[facility] [address] [place] [address] Chloride [Moles/Vol] 100 mmol/L Normal 97-105 [facility] Comment on above: Performed By: #### C BC, BMP ####[facility] [address] [place] [phone] CO2 [Moles/Vol] 26 mmol/L Normal 22-30 [facility] Comment on above: Performed By: #### C BC, BMP ####[facility] [address] [place] [address] Creatinine [Mass/Vol] 0.79 mg/dL Normal 0.73-1.22 [facility] Comment on above: Performed By: #### C BC, BMP ####[facility] [address] [place] [address] eGFR- Amer. >60 Normal [facility] Comment on above: Performed By: #### C BC, BMP ####[facility] [address] [place] [address] GFR/1.73 sq M predicted among non-blacks MDRD (S/P/Bld) [Vol rate/Area] mL/min/{1.73_m2} Normal [facility] Comment on above: Result Comment: eGFR [...] GFR. Performed By: #### C , BMP ####[facility] [address] [place] [phone] Glucose [Mass/Vol] 108 mg/dL High 74-99 [facility] Comment on above: Result Comment: The [place] [employer] (ADA) provides guidance for cutoff [...] Standards of Medical Care in Diabetes 2016, [place] [employer]. Diabetes Care. 2016.39(Suppl 1). Performed By: #### C RAFAEL, BMP ####[place] [address] Potassium [Moles/Vol] 4.4 mmol/L Normal 3.7-5.1 [facility] Comment on above: Performed By: #### C RAFAEL, BMP ####[place] [address] Sodium [Moles/Vol] 138 mmol/L Normal 136-144 [facility] Comment on above: Performed By: #### C RAFAEL, BMP ####[place] [address] Urea nitrogen [Mass/Vol] 24 mg/dL Normal 9-24 [facility] Comment on above: Performed By: #### C RAFAEL, BMP ####[place] [address] CBCon 01-30-2019 Erythrocyte distribution width (RBC) [Ratio] 17.8 % High 11.5-15.0 [facility] Comment on above: Performed By: #### C RAFAEL, BMP ####[place] [address] Hematocrit (Bld) [Volume fraction] 40.4 % Normal 39.0-51.0 [facility] Comment on above: Performed By: #### C BC, BMP ####[place] [address] Hemoglobin (Bld) [Mass/Vol] 12.9 g/dL Low 13.0-17.0 [facility] Comment on above: Performed By: #### C BC, BMP ####[place] [address] MCH (RBC) [Entitic mass] 29.8 pG Normal 26.0-34.0 [facility] Comment on above: Performed By: #### Beatriz HALL, BMP ####[facility] Ztiftgnezs1270 [phone] MCHC (RBC) [Mass/Vol] 31.9 g/dL Normal 30.5-36.0 [facility] Comment on above: Performed By: #### Beatriz HALL, BMP ####[facility] Zlvrtvhgqd0455 [phone] MCV (RBC) [Entitic vol] 93.3 fL Normal 80.0-100.0 [facility] Comment on above: Performed By: #### Beatriz HALL, BMP ####[facility] Rdamyagkkn1190 [phone] Platelet mean volume (Bld) [Entitic vol] 9.7 fL Normal 9.0-12.7 [facility] Comment on above: Performed By: #### Beatriz HALL, BMP ####[facility] Lxkbetmfrw6861 [phone] Platelets (Bld) [#/Vol] 375 10*3/uL Normal 150-400 [facility] Comment on above: Performed By: #### Beatriz HALL, BMP ####[facility] Sumvohvuev1195 [phone] RBC (Bld) [#/Vol] 4.33 10*6/uL Normal 4.20-6.00 [facility] Comment on above: Performed By: #### Beatriz HALL, BMP ####[facility] Lrglwdvezw4834 [phone] WBC (Bld) [#/Vol] 8.69 10*3/uL Normal 3.70-11.00 [facility] Comment on above: Performed By: #### Beatriz HALL, BMP ####[facility] Ksm[address]ze1148 [address]721-5160 NURSING PROGon 01-30-2019 NURSING PROG HNO ID: [id number] Author: Zac (Rn) Rafal RN Service: Nursing Author Type: Registered Nurse Type: Nursing Progress Note Filed: 01/30/2019 8:53 AM Note Text: Nursing Progress Note Patient Name: Jorge Covington Patient Location: [place] [address] [address] -1 Daily Note: Pt laying in bed, a/ox3, lungs cta slightly diminished in bases, on RA, denies sob, cough, cp. abd large but nontender +bsx4, no edema. Denies pain at this time. SR 71 on tele. This note was completed by: Zac Lyles RN [facility] PROGRESSon 01-30-2019 PROGRESS HNO ID: [id number] Author: Shirley Romo Service: ? Author Type: [...] to po thyroid meds tomorrow hypercapnea-resolved Suspect rudy/ohs uti?proteus sensitive to rocephin GNB septicemia?klebsiella sensitive [...] HOURS 01/22/192228 -- 01/22/192229 pneumatic compression stockings (dc,in) 01/22/191814 vte non-pharmacologic prophylaxis - none indicated (dc,in) 01/22/191814 activity - mobilize patient (dc,in) VTE Prophylaxis: VTE prophylaxis appropriate SIGNATURE: Shirley Romo DO PATIENT NAME: Jorge Covington DATE: January 30, 2019 TIME: 9:14 AM PAGER/CONTACT #: [phone] Normal [facility] Basic Metabolic Panlon 01-29 Anion gap [Moles/Vol] 9 mmol/L Normal - [facility] Comment on above: Performed By: #### C RAFAEL BMP ####[facility] [address] [place] [phone] Calcium [Mass/Vol] 9.7 mg/dL Normal 8.5-10.2 [facility] Comment on above: Performed By: #### C RAFAEL, BMP ####[facility] [address]8097 [place] [phone] Chloride [Moles/Vol] 97 mmol/L Normal 97-105 [facility] Comment on above: Performed By: #### C BC, BMP ####[facility] [address] [place] [address] CO2 [Moles/Vol] 30 mmol/L Normal 22-30 [facility] Comment on above: Performed By: #### C BC, BMP ####[facility] [address]u17[address] [place] [address] Creatinine [Mass/Vol] 0.86 mg/dL Normal 0.73-1.22 [facility] Comment on above: Performed By: #### C RAFAEL, BMP ####[facility] [address] [place] [address] eGFR- Amer. >60 Normal [facility] Comment on above: Performed By: #### C BC, BMP ####[facility] [address]74[address] [place] [address] GFR/1.73 sq M predicted among non-blacks MDRD (S/P/Bld) [Vol rate/Area] mL/min/{1.73_m2} Normal [facility] Comment on above: Result Comment: eGFR [...] GFR. Performed By: #### C BC, BMP ####[facility] [address]39[address] [place] [phone] Glucose [Mass/Vol] 103 mg/dL High 74-99 [facility] Comment on above: Result Comment: The [place] [employer] (ADA) provides guidance for cutoff [...] Standards of Medical Care in Diabetes 2016, [place] [employer]. Diabetes Care. 2016.39(Suppl 1). Performed By: #### C BC, BMP ####[facility] [address] [place] [address] Potassium [Moles/Vol] 4.5 mmol/L Normal 3.7-5.1 [facility] Comment on above: Performed By: #### C BC, BMP ####[place] [address] Sodium [Moles/Vol] 136 mmol/L Normal 136-144 [facility] Comment on above: Performed By: #### C RAFAEL, BMP ####[place] [address] Urea nitrogen [Mass/Vol] 20 mg/dL Normal 9-24 [facility] Comment on above: Performed By: #### C RAFAEL, BMP ####[facility] [address] [place] [address] CBCon 01-29-2019 Erythrocyte distribution width (RBC) [Ratio] 18.0 % High 11.5-15.0 [facility] Comment on above: Performed By: #### C RAFAEL, BMP ####[place] [address] Hematocrit (Bld) [Volume fraction] 40.0 % Normal 39.0-51.0 [facility] Comment on above: Performed By: #### C BC, BMP ####[place] [address] Hemoglobin (Bld) [Mass/Vol] 12.6 g/dL Low 13.0-17.0 [facility] Comment on above: Performed By: #### C BC, BMP ####[place] [address] MCH (RBC) [Entitic mass] 29.7 pG Normal 26.0-34.0 [facility] Comment on above: Performed By: #### C BC, BMP ####[facility] [address]6417 [place] [phone] MCHC (RBC) [Mass/Vol] 31.5 g/dL Normal 30.5-36.0 [facility] Comment on above: Performed By: #### Beatriz HALL, BMP ####[facility] [address]xb[address]025[address] [place] [phone] MCV (RBC) [Entitic vol] 94.3 fL Normal 80.0-100.0 [facility] Comment on above: Performed By: #### Beatriz HALL, BMP ####[facility] [address]87[address] [place] [phone] Platelet mean volume (Bld) [Entitic vol] 9.4 fL Normal 9.0-12.7 [facility] Comment on above: Performed By: #### Beatriz HALL, BMP ####[facility] [address]ruwbnj[address] [place] [phone] Platelets (Bld) [#/Vol] 363 10*3/uL Normal 150-400 [facility] Comment on above: Performed By: #### Beatriz HALL, BMP ####[facility] Gamumc[address]fo9957 [place] [phone] RBC (Bld) [#/Vol] 4.24 10*6/uL Normal 4.20-6.00 [facility] Comment on above: Performed By: #### Beatriz HALL, BMP ####[facility] [address]wt[address]vum0408 [place] [phone] WBC (Bld) [#/Vol] 7.41 10*3/uL Normal 3.70-11.00 [facility] Comment on above: Performed By: #### Beatriz HALL, BMP ####[facility] [address]op[address]38[address] [place] [phone] NURSING PROGon 01-29-2019 NURSING PROG HNO ID: [id number] Author: Zac (Rn) Rafal, RN Service: Nursing Author Type: Registered Nurse Type: Nursing Progress Note Filed: 01/29/2019 8:03 AM Note Text: Nursing Progress Note Patient Name: Jorge Covington Patient Location: [facility]-0264 -1 Daily Note: Pt is a/ox2, lungs cta, denies sob, cp.was on 2L at 99% states does NOT use at home, took off pt is 95% will continue to monitor. abd large nontender, This note was completed by: Zac Lyles RN [facility] PROGRESSon 01-29-2019 PROGRESS HNO ID: [id number] Author: Shirley Romo Service: ? Author Type: [...] ? ? ? 66 18 ? ? 01/28/19 2014 ? ? ? 70 18 98 % [...] to po thyroid meds tomorrow hypercapnea-resolved Suspect rudy/ohs uti?proteus sensitive to rocephin GNB septicemia?klebsiella sensitive [...] 01/22/199 -- 01/22/19 223 pneumatic compression stockings (dc,in) 01/22/19 181 vte non-pharmacologic prophylaxis - none indicated (dc,in) 01/22/191814 activity - mobilize patient ([place]) VTE Prophylaxis: VTE prophylaxis appropriate SIGNATURE: Shirley Romo DO PATIENT NAME: Jorge Covington DATE: January 29, 2019 TIME: 11:31 AM PAGER/CONTACT #: [phone] Normal [facility] Basic Metabolic Panlon 01-28 Anion gap [Moles/Vol] 11 mmol/L Normal 9-18 [facility] Comment on above: Performed By: #### C RAFAEL, BMP ####[facility] [address]ft[address]6412 [place] [phone] Calcium [Mass/Vol] 9.8 mg/dL Normal 8.5-10.2 [facility] Comment on above: Performed By: #### C BC, BMP ####[facility] [address]rjvve4[address] [place] [phone] Chloride [Moles/Vol] 104 mmol/L Normal 97-105 [facility] Comment on above: Performed By: #### C BC, BMP ####[facility] Qclzrlslxd8340 [place] [phone] CO2 [Moles/Vol] 27 mmol/L Normal 22-30 [facility] Comment on above: Performed By: #### C RAFAEL, BMP ####[facility] Lsq[address]uywio2044 [place] [phone] Creatinine [Mass/Vol] 0.74 mg/dL Normal 0.73-1.22 [facility] Comment on above: Performed By: #### C RAFAEL, BMP ####[facility] Qjgikctgka4270 [place] [phone] eGFR- Amer. >60 Normal [facility] Comment on above: Performed By: #### C RAFAEL, BMP ####[facility] Tqfxmelbjp9545 [place] [phone] GFR/1.73 sq M predicted among non-blacks MDRD (S/P/Bld) [Vol rate/Area] mL/min/{1.73_m2} Normal [facility] Comment on above: Result Comment: eGFR [...] GFR. Performed By: #### C BC, BMP ####[facility] Vkrsighynk4245 [address]5160 Glucose [Mass/Vol] 151 mg/dL High 74-99 [facility] Comment on above: Result Comment: The [place] [employer] (ADA) provides guidance for cutoff [...] Standards of Medical Care in Diabetes 2016, [place] [employer]. Diabetes Care. 2016.39(Suppl 1). Performed By: #### C BC, BMP ####[facility] Pvzbuttoxh4339 [address]5160 Potassium [Moles/Vol] 4.4 mmol/L Normal 3.7-5.1 [facility] Comment on above: Performed By: #### C BC, BMP ####[facility] Et[address]uf[address]fwms4033 [place] [phone] Sodium [Moles/Vol] 142 mmol/L Normal 136-144 [facility] Comment on above: Performed By: #### C BC, BMP ####[facility] Xiyrkrpjep8404 [address]5160 Urea nitrogen [Mass/Vol] 16 mg/dL Normal 9-24 [facility] Comment on above: Performed By: #### C BC, BMP ####[facility] Uwz[address]wlkuy1826 [address]5160 CASE MANAGEMon 01-28-2019 CASE MANAGEM HNO ID: [id number] Author: Florence (Rn) JAZZY Mullins Service: Care Management Author Type: Registered Nurse Type: Care Mgt Progress Note Filed: 01/28/2019 12:53 PM Note Text: CARE MANAGEMENT PROGRESS NOTE SERVICE DATE: 01/28/2019 SERVICE TIME: 12:49 PM LOS: 6 days Needs Prior to Discharge: Precertification;Disc harge Transportation Call placed to patients Dasia to discuss discharge plan. Their first choice facility [facility] is able to accept. Facility has started [...] 28, 2019 TIME: 12:49 PM PAGER/CONTACT #: [phone] Normal [facility] CBCon 01-28-2019 Erythrocyte distribution width (RBC) [Ratio] 18.1 % High 11.5-15.0 [facility] Comment on above: Performed By: #### C BC, BMP ####[facility] Zrggchdeyi4450 [place] [phone] Hematocrit (Bld) [Volume fraction] 38.0 % Low 39.0-51.0 [facility] Comment on above: Performed By: #### C RAFAEL, BMP ####[facility] [address] [place], [place] [phone] Hemoglobin (Bld) [Mass/Vol] 12.1 g/dL Low 13.0-17.0 [facility] Comment on above: Performed By: #### C RAFAEL, BMP ####[facility] [address] [place], [place] [address] MCH (RBC) [Entitic mass] 30.1 pG Normal 26.0-34.0 [facility] Comment on above: Performed By: #### C RAFAEL, BMP ####[facility] Zsexnrqpvi6123 [place] [phone] MCHC (RBC) [Mass/Vol] 31.8 g/dL Normal 30.5-36.0 [facility] Comment on above: Performed By: #### C RAFAEL, BMP ####[facility] Kklycweaxu6789 [place] [phone] MCV (RBC) [Entitic vol] 94.5 fL Normal 80.0-100.0 [facility] Comment on above: Performed By: #### C BC, BMP ####[facility] [address]osulpjnn6883 [place] [address] Platelet mean volume (Bld) [Entitic vol] 9.8 fL Normal 9.0-12.7 [facility] Comment on above: Performed By: #### C BC, BMP ####[facility] Zxpgyniays4326 [address]5160 Platelets (Bld) [#/Vol] 349 10*3/uL Normal 150-400 [facility] Comment on above: Performed By: #### C RAFAEL, BMP ####[facility] Tibkyabvwq9700 [place] [phone] RBC (Bld) [#/Vol] 4.02 10*6/uL Low 4.20-6.00 [facility] Comment on above: Performed By: #### Beatriz HALL, BMP ####[facility] Bfvzmjgozq9708 [place] [phone] WBC (Bld) [#/Vol] 8.04 10*3/uL Normal 3.70-11.00 [facility] Comment on above: Performed By: #### Beatriz HALL, BMP ####[facility] [address]rzm1552 [place] [phone] THERAPY NTon 01-28-2019 THERAPY NT HNO ID: [id number] Author: Melvi Ledezma Service: Physical Therapy Author Type: Beach Lifeguard Type: Therapy (PT/OT/Speech/Resp) Filed: 01/28/2019 2:55 PM Note Text: Attestation signed by Faith Carrillo at 01/31/2019 8:38 AM I reviewed and agree with the assessment as documented above. 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 patient reports primarily w/c/bed bound, pt is [...] 28, 2019 TIME: 2:53 PM [facility] THERAPY NT HNO ID: [id number] Author: Krystal Vasquez/Krysten Harrington Service: Occupational Therapy Author Type: Occupational Therapist Type: Therapy (PT/OT/Speech/Resp) Filed: 01/28/2019 2:32 PM Note Text: Occupational Therapy Treatment SERVICE DATE: 01/28/2019 SERVICE TIME: 1317 to 1343 ROOM: QO-4H-2586- Recommended Discharge Disposition: Subacute/SNF Recommended Discharge Disposition [...] Functions and Awareness Interventions Provided: Therapeutic Activity (47809);Self Custodial Management (01447) Therapeutic Activity (54610) Treatment Minutes: 15 1 unit Skilled Intervention(s): [...] to supine with log roll technique. Self Custodial Management (31191) Treatment Minutes: 9 1 unit Skilled Intervention(s): [...] POC and discharge recommendation with rationale. RN, COUNTY AGRICULTURAL AGENT and CM notified of pt status and [...] Care;Shopping;Transpo rtation;Wheelchair Mobility Prior Functional Level 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 patient reports primarily w/c/bed bound, pt is [...] 28, 2019 TIME: 2:05 PM [facility] THERAPY NT HNO ID: [id number] Author: Krystal Vasquez/Krysten Harrington Service: Occupational Therapy Author Type: Occupational Therapist Type: Therapy (PT/OT/Speech/Resp) Filed: 01/28/2019 1:09 PM Note Text: OCCUPATIONAL THERAPY MISSED VISIT SERVICE DATE: 01/28/2019 SERVICE TIME: 1305 to 1305 ROOM: [place] [address] Attempted Treatment. Patient not seen due to Eating. Will re-attempt as schedule allows. SIGNATURE: PORTILLO Hood PATIENT NAME: Jorge Covington DATE: January 28, 2019 TIME: 1:09 PM [facility] Basic Metabolic Panlon 01-27 Anion gap [Moles/Vol] 10 mmol/L Normal 9-18 [facility] Comment on above: Performed By: #### Beatriz HALL BMP ####[facility] [address] [place] [address]#### FREET3 ####[facility] [place], [place] [phone] Calcium [Mass/Vol] 9.3 mg/dL Normal 8.5-10.2 [facility] Comment on above: Performed By: #### Beatriz HALL BMP ####[facility] [address] [place] [address]#### FREET3 ####[facility] [place] [phone] Chloride [Moles/Vol] 106 mmol/L High 97-105 [facility] Comment on above: Performed By: #### Beatriz HALL BMP ####[facility] [address] [place] [address]#### FREET3 ####[facility] Vjuwxqc[address]hyy[phone] CO2 [Moles/Vol] 27 mmol/L Normal 22-30 [facility] Comment on above: Performed By: #### Beatriz HALL, BMP ####[facility] [address] [place] [address]#### FREET3 ####[place] [phone] Creatinine [Mass/Vol] 0.79 mg/dL Normal 0.73-1.22 [facility] Comment on above: Performed By: #### Beatriz HALL, BMP ####[place] [address]#### FREET3 ####[phone] eGFR- Amer. >60 Normal [facility] Comment on above: Performed By: #### Beatriz HALL, BMP ####[place] [address]#### FREET3 ####[place] [phone] GFR/1.73 sq M predicted among non-blacks MDRD (S/P/Bld) [Vol rate/Area] mL/min/{1.73_m2} Normal [facility] Comment on above: Result Comment: eGFR [...] GFR. Performed By: #### Beatriz HALL, BMP ####[place] [address]#### FREET3 ####[place] [address] [phone] Glucose [Mass/Vol] 110 mg/dL High 74-99 [facility] Comment on above: Result Comment: The [place] Diabetes Association (ADA) provides guidance for cutoff [...] Standards of Medical Care in Diabetes 2016, [place] [employer]. Diabetes Care. 2016.39(Suppl 1). Performed By: #### Beatriz HALL BMP ####[place] [address]#### FREET3 ####[place] [phone] Potassium [Moles/Vol] 4.1 mmol/L Normal 3.7-5.1 [facility] Comment on above: Performed By: #### Beatriz HALL BMP ####[place] [address]#### FREET3 ####[phone] Sodium [Moles/Vol] 143 mmol/L Normal 136-144 [facility] Comment on above: Performed By: #### Beatriz HALL BMP ####[facility] [address] [place] [address]#### FREET3 ####[phone] Urea nitrogen [Mass/Vol] 11 mg/dL Normal 9-24 [facility] Comment on above: Performed By: #### Beatriz HALL BMP ####[place] [address]#### FREET3 ####[place] [phone] CBCon 01-27-2019 Erythrocyte distribution width (RBC) [Ratio] 18.2 % High 11.5-15.0 [facility] Comment on above: Performed By: #### C BC, BMP ####[place] [address]#### FREET3 ####[place] [phone] Hematocrit (Bld) [Volume fraction] 36.3 % Low 39.0-51.0 [facility] Comment on above: Performed By: #### C RAFAEL, BMP ####[place] [address]#### FREET3 ####[place] [phone] Hemoglobin (Bld) [Mass/Vol] 11.3 g/dL Low 13.0-17.0 [facility] Comment on above: Performed By: #### C RAFAEL, BMP ####[place] [address]#### FREET3 ####[place] [phone] MCH (RBC) [Entitic mass] 29.5 pG Normal 26.0-34.0 [facility] Comment on above: Performed By: #### C RAFAEL, BMP ####[place] [address]#### FREET3 ####[place] [phone] MCHC (RBC) [Mass/Vol] 31.1 g/dL Normal 30.5-36.0 [facility] Comment on above: Performed By: #### C BC, BMP ####[place] [address]#### FREET3 ####[place] [phone] MCV (RBC) [Entitic vol] 94.8 fL Normal 80.0-100.0 M [facility] Comment on above: Performed By: #### Beatriz HALL, BMP ####[place] [address]#### FREET3 ####[place] [address] [address] AveCEtta, [place] [phone] Platelet mean volume (Bld) [Entitic vol] 9.8 fL Normal 9.0-12.7 [facility] Comment on above: Performed By: #### Beatriz HALL, BMP ####[place] [address]#### FREET3 ####[place] [address] [address] [place] [phone] Platelets (Bld) [#/Vol] 308 10*3/uL Normal 150-400 [facility] Comment on above: Performed By: #### Beatriz HALL, BMP ####[place] [address]#### FREET3 ####[place] [address] [address] [place] [phone] RBC (Bld) [#/Vol] 3.83 10*6/uL Low 4.20-6.00 [facility] Comment on above: Performed By: #### Beatriz HALL, BMP ####[place] [address]#### FREET3 ####[place] [address] [address] [place] [phone] WBC (Bld) [#/Vol] 8.30 10*3/uL Normal 3.70-11.00 [facility] Comment on above: Performed By: #### Beatriz HALL, BMP ####[place] [address]#### FREET3 ####[place] [address] [address] AveClevelD[address], [place] [phone] CONSULT PROGon 10-31-2019 CONSULT PROG HNO ID: [id number] Author: Brian Lewis MD Service: Endocrinology Author [...] levels now measurable, improving. Brian Lewis MD [facility] Endocrinology and Metabolism [place] [facility] January 27, 2019 11:17 AM Normal [facility] Free T3on 01-27-2019 Free T3 [Mass/Vol] 1.4 pg/mL Low 2.3-4.1 [facility] Comment on above: Performed By: #### C BC, BMP ####[facility] [address] [place] [phone]#### FREET3 ####[facility] [place], [place] [phone] Free T4on 01-27-2019 Free T4 [Mass/Vol] 1.3 ng/dL Normal 0.9-1.7 [facility] Comment on above: Performed By: #### F T4 ####[place] [address] [place], [place] [phone] NUTRITIONon 01-27-2019 NUTRITION HNO ID: [id number] Author: Yue Marquez Service: Nutrition Therapy Author [...] 27, 2019 TIME: 5:01 PM [facility] PROGRESSon 01-27-2019 PROGRESS HNO ID: [id number] Author: Shirley Romo Service: ? Author Type: [...] to po thyroid meds tomorrow hypercapnea-resolved Suspect rudy/ohs uti?proteus sensitive to rocephin GNB septicemia?klebsiella sensitive [...] HOURS 01/22/192228 -- 01/22/192229 pneumatic compression stockings (dc,oh) 01/22/191814 vte non-pharmacologic prophylaxis - none indicated (dc,oh) 01/22/191814 activity - mobilize patient (dc,in) VTE Prophylaxis: VTE prophylaxis appropriate SIGNATURE: Shirley Romo DO PATIENT NAME: Jorge Covington DATE: January 27, 2019 TIME: 3:44 PM PAGER/CONTACT #: [phone] [facility] ALLIED HEALTHon 01-26-2019 ALLIED HEALTH HNO ID: [id number] Author: DAVID Sykes (Ct) Service: ? Author Type: Clinical Superintendent Factory Type: Allied Health Filed: 01/26/2019 6:13 AM [...] January 26, 2019 6:13 AM [facility] Basic Metabolic Panlon 01-26 Anion gap [Moles/Vol] 11 mmol/L Normal 9-18 [facility] Comment on above: Performed By: #### T SH #### [facility] [address] [place] [address] Calcium [Mass/Vol] 9.4 mg/dL Normal 8.5-10.2 [facility] Comment on above: Performed By: #### T SH #### [facility] [address] [place] [address] Chloride [Moles/Vol] 109 mmol/L High 97-105 [facility] Comment on above: Performed By: #### T SH #### [facility] [address] [place] [address] CO2 [Moles/Vol] 27 mmol/L Normal 22-30 [facility] Comment on above: Performed By: #### T SH #### [facility] [address] [facility] [phone] Creatinine [Mass/Vol] 0.70 mg/dL Low 0.73-1.22 [facility] Comment on above: Performed By: #### T SH #### [facility] [address] [facility] [phone] eGFR- Amer. >60 Normal [facility] Comment on above: Performed By: #### T SH #### [facility] [address] [facility] [phone] GFR/1.73 sq M predicted among non-blacks MDRD (S/P/Bld) [Vol rate/Area] mL/min/{1.73_m2} Normal [facility] Comment on above: Result Comment: eGFR [...] GFR. Performed By: #### T SH #### [facility] [address] [facility] [phone] Glucose [Mass/Vol] 128 mg/dL High 74-99 [facility] Comment on above: Result Comment: The [place] Diabetes Association (ADA) provides guidance for cutoff [...] Standards of Medical Care in Diabetes 2016, [place] [employer]. Diabetes Care. 2016.39(Suppl 1). Performed By: #### T SH #### [facility] [address] [facility] [phone] Potassium [Moles/Vol] 3.9 mmol/L Normal 3.7-5.1 [facility] Comment on above: Performed By: #### T SH #### [facility] [address] [facility] [phone] Sodium [Moles/Vol] 147 mmol/L High 136-144 [facility] Comment on above: Performed By: #### T SH #### [facility] [address] [facility] [phone] Urea nitrogen [Mass/Vol] 9 mg/dL Normal 9-24 [facility] Comment on above: Performed By: #### T SH #### [facility] [address] [facility] [phone] CASE MANAGEMon 01-26-2019 CASE MANAGEM HNO ID: [id number] Author: Kari De La RosaRn) JAZZY Toscano Service: ? Author Type: Registered Nurse Type: Care Mgt Progress Note Filed: 01/26/2019 12:10 PM Note Text: CARE MANAGEMENT PROGRESS NOTE SERVICE DATE: 01/26/2019 SERVICE TIME: 11:21 AM LOS: 4 days JAZZY PAVON met with patient at bedside to discuss discharge planning. Patient informed that Physical Therapy is recommending Detention Facility for discharge. JAZZY PAVON discussed freedom of choice with patient. Patient sates he is agreeable to senior living facility at discharge. JAZZY PAVON provided and offered to read patient the [facility] Provider list for SNF choices patient states he does not have his glasses to read himself. Patient declines offer and requests that JAZZY PAVON call his spouse Abraham for senior living facility choices. Patient provided his spouses contact information [phone]. JAZZY PAVON called and spoke to Abraham and read her the [facility] Provider List for SNF. FREEDOM OF CHOICE GIVEN: Yes [place] of choice explained to patient and patients spouse Abraham. Financial Disclosure Provided The patient and/or family has been given the Provider List: Yes Provider List: Detention Facility Preference: Detention Facility: 1. [facility] - [phone] 2. [facility] - [phone] 3. [facility] - [phone] Referrals sent in Allscripts to SNF choices. SIGNATURE: Kari Toscano RN PATIENT NAME: Jorge Covington DATE: January 26, 2019 TIME: 11:21 AM PAGER/CONTACT #: [phone] Normal [facility] CBCon 01-26-2019 Erythrocyte distribution width (RBC) [Ratio] 18.0 % High 11.5-15.0 [facility] Comment on above: Performed By: #### T SH #### [facility] [address] [place] [phone] Hematocrit (Bld) [Volume fraction] 37.7 % Low 39.0-51.0 [facility] Comment on above: Performed By: #### T SH #### [facility] [address] [place] [phone] Hemoglobin (Bld) [Mass/Vol] 12.0 g/dL Low 13.0-17.0 [facility] Comment on above: Performed By: #### T SH #### [facility] [address] [place], [place] [phone] MCH (RBC) [Entitic mass] 29.6 pG Normal 26.0-34.0 [facility] Comment on above: Performed By: #### T SH #### [facility] [address] [place], [place] [address] MCHC (RBC) [Mass/Vol] 31.8 g/dL Normal 30.5-36.0 [facility] Comment on above: Performed By: #### T SH #### [facility] [address] [facility] [phone] MCV (RBC) [Entitic vol] 93.1 fL Normal 80.0-100.0 [facility] Comment on above: Performed By: #### T SH #### [facility] [address] [place], [place] [address] Platelet mean volume (Bld) [Entitic vol] 9.9 fL Normal 9.0-12.7 [facility] Comment on above: Performed By: #### T SH #### [facility] [address] [facility] [phone] Platelets (Bld) [#/Vol] 334 10*3/uL Normal 150-400 [facility] Comment on above: Performed By: #### T SH #### [facility] [address] [facility] [phone] RBC (Bld) [#/Vol] 4.05 10*6/uL Low 4.20-6.00 [facility] Comment on above: Performed By: #### T SH #### [facility] [address] [facility] [phone] WBC (Bld) [#/Vol] 7.97 10*3/uL Normal 3.70-11.00 [facility] Comment on above: Performed By: #### T SH #### [facility] [address] [facility] [phone] Free T3on 01-26-2019 Free T3 [Mass/Vol] 1.3 pg/mL Low 2.3-4.1 [facility] Comment on above: Performed By: #### F REET3 ####[facility] [place], [place] [phone] Free T3 [Mass/Vol] Duplicate request Normal 2.3-4.1 [facility] Comment on above: Performed By: #### T SH #### [facility] [address] [facility] [phone] Free T4on 01-26-2019 Free T4 [Mass/Vol] Duplicate request Normal 0.9-1.7 [facility] Comment on above: Performed By: #### C BC, BMP, MG1, PHOS, FREET3, FT4 ####[facility] [address] [place], [place] [phone] Magnesiumon 01-26-2019 Magnesium [Mass/Vol] 2.1 mg/dL Normal 1.7-2.3 [facility] Comment on above: Performed By: #### T SH #### [facility] [address] [facility] [phone] NURSING PROGon 01-26-2019 NURSING PROG HNO ID: [id number] Author: Lesly De La RosaRn) JAZZY Borrego Service: Nursing Author Type: Registered Nurse Type: Nursing Progress Note Filed: 01/26/2019 10:13 PM Note Text: Nursing Progress Note Patient Name: Jorge Covington Patient Location: [place]-2[place]-0264/[place]-2N-0264 -1 Transfer Note: Patient transferred into room/unit 264 in stable condition. Actions taken: No futher actions taken at this time. Will continue to monitor and check with patient. This note was completed by: Lesly Borrego RN [facility] NURSING PROG HNO ID: [id number] Author: Goran De La RosaRnDemi Thomas RN Service: ? Author Type: Registered Nurse Type: Nursing Progress Note Filed: 01/26/2019 9:31 PM Note Text: Nursing Progress Note Patient Name: Jorge Covington Patient Location: [facility] -1 Daily Note 2124- Transferred via bed out of icu 1 to RM#264 via bed on 2L. All belongings sent with patient. VSS. Safety maintained. This note was completed by: Goran Thomas Rn [facility] PLAN OF CAREon 01-26-2019 PLAN OF CARE HNO ID: [id number] Author: Rossi Farmer Service: Endocrinology Author Type: Physician Type: Plan of Care Filed: 01/26/2019 11:11 AM Note Text: Plan of Care: -- monitoring thyroid labs daily with you -- no change today -- continue IV levothyroxine 150 mcg -- Free t4 daily -- TSH Thursday -- Will return Thursday to bedside and make comments when TSH returns Rossi Farmer MD [facility] PROGRESSon 01-26-2019 PROGRESS HNO ID: [id number] Author: Merrick Kuhn Service: Critical Care Author [...] the A/P section below. Please refer to [facility] for list of inpatient medications. VITAL SIGNS: [...] Is Patient Clinically Ready to Transfer to [facility] or SDU?: Yes, transfer to SDU or 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 Current Assessment AND Plan Assessment: H/O Hypothyroidism On Po Levothyroxine stopped taking as ran out of prescriptons PLAN: Endocrinology on board IV Levothyroxine Daily thyroid studies TSH on Thursday Pulmonary COPD (chronic obstructive pulmonary disease) ([facility]) 06/08/2018 - Present Acute respiratory failure ([facility]) 01/22/2019 - Present Current Assessment AND Plan Assessment: Intubated 01/22 overnight ---> Extubated 01/25 PLAN: Continue scheduled nebs Aggressive pulm toilet OOB ISS Infectious Disease Septicemia ([facility]) 01/23/2019 - Present Current Assessment [...] HOURS 01/22/192228 -- 01/22/192229 pneumatic compression stockings (dc,in) 01/22/191814 vte non-pharmacologic prophylaxis - none indicated (dc,in) 01/22/191814 activity - mobilize patient (dc,in) VTE Prophylaxis: VTE prophylaxis appropriate Plan of care discussed with: Provider, RN, Patient SIGNATURE: Camila Rizvi MD PATIENT NAME: Jorge Covington DATE: January 26, 2019 TIME: 11:16 AM PAGER/CONTACT #: [phone] ICU STAFF PHYSICIAN NOTE OF PERSONAL INVOLVEMENT [...] monitoring D/w Dr.Esterle Desai for transfer to [facility] I have reviewed and verified the recent history and physical examination obtained and documented by fellow and I personally participated in the hodges components. I have discussed the case and management of the patient's care, exclusive of separately billed procedures which fulfilled the standards for LEVEL 3. SIGNATURE: Merrick Kuhn MD DATE: 01/26/2019 TIME: 2:14 PM [facility] PROGRESS HNO ID: [id number] Author: Shirley Romo Service: ? Author Type: [...] T4 on po Synthroid now hypercapnea Suspect rudy/ohs uti?proteus sensitive to rocephin GNB septicemia klebsiella [...] HOURS 01/22/192228 -- 01/22/192229 pneumatic compression stockings (dc,in) 01/22/191814 vte non-pharmacologic prophylaxis - none indicated (dc,oh) 01/22/191814 activity - mobilize patient (dc,in) VTE Prophylaxis: VTE prophylaxis appropriate SIGNATURE: Shirley Romo DO PATIENT NAME: Jorge Covington DATE: January 26, 2019 TIME: 10:09 AM PAGER/CONTACT #: [phone] Normal [facility] Phosphoruson 01-26-2019 Phosphate [Mass/Vol] 2.9 mg/dL Normal 2.7-4.8 [facility] Comment on above: Performed By: #### T #### [facility] [address] [place] [address] THERAPY NTon 01-26-2019 THERAPY NT HNO ID: [id number] Author: Drea (Ot/LDemi Burciaga Service: Occupational Therapy Author Type: Occupational Therapist Type: Therapy (PT/OT/Speech/Resp) Filed: 01/28/2019 1:50 PM Note Text: Occupational Therapy Evaluation SERVICE DATE: 01/26/2019 SERVICE TIME: 1350 to 1425 ROOM: [place] [address] Recommended Discharge Disposition: Subacute/SNF Recommended Discharge Disposition [...] and Awareness Interventions Provided: Evaluation;Therapeuti c Activity (11098);Self Custodial Management (07775) $ Evaluation-Moderate (93929) Billed Units: 1 unit Therapeutic Activity (25177) Treatment Minutes: 15 1 unit Skilled Intervention(s): [...] self care activities while EOB sitting Self Custodial Management (81839) Treatment Minutes: 10 1 unit Skilled Intervention(s): [...] Care;Shopping;Transpo rtation;Wheelchair Mobility Prior Functional Level 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 patient reports 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 w/c/bed bound, pt is [...] 26, 2019 TIME: 2:53 PM [facility] THERAPY NT HNO ID: [id number] Author: Faith (Pt) Gerardo Service: Physical Therapy Author Type: Physical Therapist Type: Therapy (PT/OT/Speech/Resp) Filed: 01/26/2019 10:41 AM Note Text: Physical Therapy Evaluation SERVICE DATE: 01/26/2019 SERVICE TIME: 0857 to 0946 ROOM: [place] [address] Recommended Discharge Disposition: Subacute/SNF Recommended Discharge Disposition [...] at approach (recently weaned from 2LO2 per TAPE MACHINE TAILER), requires reapplication of 2LO2 during session to [...] Reduced mobility-other Interventions Provided: Evaluation;Therapeuti c Exercise (54625);Therapeutic Activity (37125);Neuromuscular Reeducation (42143) $ Evaluation-Moderate (08017) Billed Units: 1 unit Therapeutic Exercise (27457) Treatment Minutes: 6 Skilled Intervention(s): Instruction in [...] >90% and up to 92% Therapeutic Activity (29929) Treatment Minutes: 8 1 unit Skilled Intervention(s): [...] home PT (pt active with home PT COUNTY AGRICULTURAL 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 IMPRESSION: Mild bibasilar atelectasis. Dental Financial Coordinator: PSCB Transcribe Date/Time: Jan 26 2019 6:34A Dictated by : RELL SIERRA MD This examination was interpreted and the report reviewed and electronically signed by: RELL SIERRA MD on Jan 26 2019 6:58AM EST [id number] [facility] ALLIED HEALTHon 01-25-2019 ALLIED HEALTH HNO ID: [id number] Author: Kannan Block (Rt) Service: Radiology Author Type: Superintendent Factory Type: Allied Health Filed: 01/25/2019 6:24 AM [...] January 25, 2019 6:24 AM [facility] Basic Metabolic Panlon 01-25 Anion gap [Moles/Vol] 8 mmol/L Low 9-18 [facility] Comment on above: Performed By: #### C BC, BMP, MG1, PHOS ####[facility] [address] [place] [address] Calcium [Mass/Vol] 8.8 mg/dL Normal 8.5-10.2 [facility] Comment on above: Performed By: #### C BC, BMP, MG1, PHOS ####[facility] [address] [place] [address] Chloride [Moles/Vol] 104 mmol/L Normal 97-105 [facility] Comment on above: Performed By: #### C BC, BMP, MG1, PHOS ####[facility] [address] [place] [address] CO2 [Moles/Vol] 25 mmol/L Normal 22-30 [facility] Comment on above: Performed By: #### C BC, BMP, MG1, PHOS ####[facility] [address] [place] [address] Creatinine [Mass/Vol] 0.95 mg/dL Normal 0.73-1.22 [facility] Comment on above: Performed By: #### C BC, BMP, MG1, PHOS ####[facility] [address] [place] [address] eGFR- Amer. >60 Normal [facility] Comment on above: Performed By: #### C BC, BMP, MG1, PHOS ####[facility] [address] [place] [address] GFR/1.73 sq M predicted among non-blacks MDRD (S/P/Bld) [Vol rate/Area] mL/min/{1.73_m2} Normal [facility] Comment on above: Result Comment: eGFR [...] actual GFR. Performed By: #### C MILES HALL MG1, PHOS ####[facility] [address] [place] [address] Glucose [Mass/Vol] 105 mg/dL High 74-99 [facility] Comment on above: Result Comment: The [place] [employer] (ADA) provides guidance for cutoff [...] Standards of Medical Care in Diabetes 2016, [place] [employer]. Diabetes Care. 2016.39(Suppl 1). Performed By: #### C MILES HALL, MG1, PHOS ####[facility] [address] [place] [address] Potassium [Moles/Vol] 3.5 mmol/L Low 3.7-5.1 [facility] Comment on above: Performed By: #### C MILES HALL, MG1, PHOS ####[facility] [address] [place] [address] Sodium [Moles/Vol] 137 mmol/L Normal 136-144 [facility] Comment on above: Performed By: #### C MILES HALL, MG1, PHOS ####[facility] [address] [place] [id number] Urea nitrogen [Mass/Vol] 12 mg/dL Normal 9-24 [facility] Comment on above: Performed By: #### C MILES HALL, MG1, PHOS ####[facility] [address] [place] [id number] CASE MANAGEMon 01-25-2019 CASE MANAGEM HNO ID: [id number] Author: Kari De La RosaRn) JAZZY Toscano Service: ? Author Type: Registered [...] (Hcc) Septicemia (Hcc) Attendees Present at Rounds: Supervisor Cook House: Kari Toscano Pharmacy: Jennifer Pino Provider: Merrick Kuhn and Camila Rizvi Staff Nurse: Giovanni Mckeon Needs Discussed on Rounds: Plan of Care Anticipated Discharge Disposition: Home with Home Health Care vs Detention Facility [facility] [phone] - Yes willing to accept for services. [...] January 25, 2019 TIME: 11:52 AM CSN: [id number] Normal [facility] CBCon 01-25-2019 Erythrocyte distribution width (RBC) [Ratio] 18.4 % High 11.5-15.0 [facility] Comment on above: Performed By: #### N TBNP #### [facility] [address] [place] [address] Hematocrit (Bld) [Volume fraction] 35.2 % Low 39.0-51.0 [facility] Comment on above: Performed By: #### N TBNP #### [facility] [address] [place] [address] Hemoglobin (Bld) [Mass/Vol] 11.0 g/dL Low 13.0-17.0 [facility] Comment on above: Performed By: #### N TBNP #### [facility] [address] [place], [place] [address] MCH (RBC) [Entitic mass] 29.3 pG Normal 26.0-34.0 [facility] Comment on above: Performed By: #### N TBNP #### [facility] [address] [place], [place] [address] MCHC (RBC) [Mass/Vol] 31.3 g/dL Normal 30.5-36.0 [facility] Comment on above: Performed By: #### N TBNP #### [facility] [address] [place], [place] [phone] MCV (RBC) [Entitic vol] 93.6 fL Normal 80.0-100.0 [facility] Comment on above: Performed By: #### N TBNP #### [facility] [address] [place], [place] [phone] Platelet mean volume (Bld) [Entitic vol] 9.7 fL Normal 9.0-12.7 [facility] Comment on above: Performed By: #### N TBNP #### [facility] 1000 [facility] [phone] Platelets (Bld) [#/Vol] 335 10*3/uL Normal 150-400 [facility] Comment on above: Performed By: #### N TBNP #### [facility] [address] [facility] [phone] RBC (Bld) [#/Vol] 3.76 10*6/uL Low 4.20-6.00 [facility] Comment on above: Performed By: #### N TBNP #### [facility] 1000 [facility] [phone] WBC (Bld) [#/Vol] 7.63 10*3/uL Normal 3.70-11.00 [facility] Comment on above: Performed By: #### N TBNP #### [facility] 1000 [facility] [phone] CONSULT PROGon 01-25-2019 CONSULT PROG HNO ID: [id number] Author: Rossi Vásquez) Marleny Service: Endocrinology Author [...] affect and behaviour normal Rossi Farmer MD [facility] Endocrinology and Metabolism [place] [facility] January 25, 2019 5:09 PM [facility] CONSULT PROG HNO ID: [id number] Author: [place] Davila Service: Pulmonary Disease Author Type: Physician Type: Consult Progress Note Filed: 01/28/2019 10:14 AM Note Text: Patient extubated with no ongoing pulmonary issues. Will sign off-discussed with ICU attending [facility] Free T3on 01-25-2019 Free T3 [Mass/Vol] 1.4 pg/mL Low 2.3-4.1 [facility] Comment on above: Performed By: #### T SH #### [facility] [address] [facility] [phone] Free T4on 01-25-2019 Free T4 [Mass/Vol] 0.6 ng/dL Low 0.9-1.7 [facility] Comment on above: Performed By: #### T SH #### [facility] [address] [facility] [phone] Magnesiumon 01-25-2019 Magnesium [Mass/Vol] 1.8 mg/dL Normal 1.7-2.3 [facility] Comment on above: Performed By: #### C BC, BMP, MG1, PHOS ####[facility] [address] [place], [place] [phone] NURSING PROGon 01-25-2019 NURSING PROG HNO ID: [id number] Author: Britta De La RosaRn) JAZZY Dorado Service: Nursing Author Type: Registered Nurse Type: Nursing Progress Note Filed: 01/25/2019 7:01 AM Note Text: Nursing Progress: Topic: RESTRAINT NON-VIOLENT PATIENT NAME: Jorge Covington PATIENT LOCATION: [place]-IC-0001/[place]-IC-0001 -1 The patient demonstrates Attempting to Remove [...] January 25, 2019 TIME: 7:00 AM Britta oDrado RN Nursing Progress: Topic: RESTRAINT NON-VIOLENT PATIENT NAME: Jorge Covington PATIENT LOCATION: [place]-IC-0001/[place]-IC-0001 -1 The patient demonstrates Attempting to Remove [...] 7:00 AM Britta Dorado RN [facility] NURSING [facility] ID: [id number] Author: Giovanni Mckeon RN Service: Nursing Author Type: Registered Nurse Type: Nursing Progress Note Filed: 01/25/2019 2:33 PM Note Text: Nursing Progress Note Patient Name: Jorge Covington Patient Location: [place]-IC-0001/[place]-IC-0001 -1 Daily Note: 01/25/19 1030: Restraints DC'd post extubation. 1115: Call to , Dasia, regarding patient updates of overall status and extubation. This note was completed by: Giovanni Mckeon RN [facility] NURSING PROG HNO ID: [id number] Author: Giovanni Lowe) JAZZY Mckeon Service: Nursing Author Type: Registered Nurse Type: Nursing Progress Note Filed: 01/25/2019 9:54 AM Note Text: Nursing Progress: Topic: RESTRAINT NON-VIOLENT PATIENT NAME: Jorge Covington PATIENT LOCATION: [place] [address]/[address] The patient demonstrates Attempting to Remove Medical [...] 9:53 AM Giovanni Mckeon RN [facility] PROGRESSon 01-25-2019 PROGRESS HNO ID: [id number] Author: Shirley Romo Service: ? Author Type: [...] T4 on po Synthroid now hypercapnea Suspect rudy/ohs uti proteus sensitive to rocephin GNB septicemia klebsiella sensitive to rocephin Distended bowel loops due to thyroid likely Plan Cont current poc Medication and Non-Pharmacologic VTE Prophylaxis/Anticoagu lants Anticoagulant AND Antiplatelet Medications (From admission, onward) Start Dose Route Frequency Ordered Stop 01/22/19 223 heparin 5,000 Units injection (Medical Risk Categories) 5,000 Units SUBCUTANEOUS EVERY 12 HOURS 01/22/199 -- 01/22/19 223 pneumatic compression stockings ([place], [place]) 01/22/19 181 vte non-pharmacologic prophylaxis - none indicated (dc,in) 01/22/19 181 activity - mobilize patient ([place]) VTE Prophylaxis: VTE prophylaxis appropriate SIGNATURE: Shirley Romo DO PATIENT NAME: Jorge Covington DATE: January 25, 2019 TIME: 11:46 AM PAGER/CONTACT #: [phone] [facility] PROGRESS HNO ID: [id number] Author: Merrick Kuhn Service: Critical Care Author [...] the A/P section below. Please refer to [facility] for list of inpatient medications. VITAL SIGNS: [...] Is Patient Clinically Ready to Transfer to 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 Current Assessment AND Plan Assessment: H/O Hypothyroidism On Po Levothyroxine stopped taking as ran out of prescriptons PLAN: Endocrinology on board IV Levothyroxine Daily thyroid studies Pulmonary COPD (chronic obstructive pulmonary disease) ([facility]) 06/08/2018 - Present Acute respiratory failure ([facility]) 01/22/2019 - Present Current Assessment AND Plan Assessment: Intubated 01/22 overnight ---> Extubated 01/25 PLAN: Continue scheduled nebs Aggressive pulm toilet OOB ISS Infectious Disease Septicemia ([facility]) 01/23/2019 - Present Current Assessment [...] indicated (fl,oh) 01/22/191814 activity - mobilize patient (dc,in) VTE Prophylaxis: VTE prophylaxis appropriate Plan of care discussed with: Provider, RN, Patient SIGNATURE: Camila Rizvi MD PATIENT NAME: Jorge Covington DATE: January 25, 2019 TIME: 11:20 AM PAGER/CONTACT #: [phone] ICU STAFF PHYSICIAN NOTE OF PERSONAL INVOLVEMENT [...] DATE: January 25, 2019 TIME: 1:24 PM [facility] 01-25-2019 Phosphate [Mass/Vol] 3.6 mg/dL Normal 2.7-4.8 [facility] Comment on above: Result Comment: Rech ecked Performed By: #### C BC, BMP, MG1, PHOS ####[facility] [address] [place] [phone] XR CHEST 1V FRONTALon 2018 XR CHEST [...] Cardiomediastinal silhouette: Stable cardiomediastinal silhouette. Other: . Dental Financial Coordinator: [employer] Transcribe Date/Time: Jan 25 2019 8:20A Dictated by : NADJA DONNELLY MD This examination was interpreted and the report reviewed and electronically signed by: NADJA DONNELLY MD on Jan 25 2019 8:22AM EST [id number] Normal [facility] ALLIED HEALTHon 01-24-2019 ALLIED HEALTH HNO ID: [id number] Author: Kannan Nicole (Rt) Service: Radiology Author Type: Superintendent Factory Type: Allied Health Filed: 01/24/2019 11:14 AM [...] PERIPHERAL IV DATA: Not applicable SIGNED BY: Tierney Sheriff RT January 24, 2019 11:13 AM Normal [facility] Basic Metabolic Panlon 01-24 Anion gap [Moles/Vol] 12 mmol/L Normal 9-18 [facility] Comment on above: Performed By: #### C BCDIF, CMP #### [facility] [address] Calcium [Mass/Vol] 8.9 mg/dL Normal 8.5-10.2 [facility] Comment on above: Performed By: #### C BCDIF, CMP #### [facility] [address] [place] [address] Chloride [Moles/Vol] 105 mmol/L Normal 97-105 [facility] Comment on above: Performed By: #### C BCDIF, CMP #### [facility] [address] [place] [phone] CO2 [Moles/Vol] 23 mmol/L Normal 22-30 [facility] Comment on above: Performed By: #### C BCDIF, CMP #### [facility] [address] Creatinine [Mass/Vol] 0.94 mg/dL Normal 0.73-1.22 [facility] Comment on above: Performed By: #### C BCDIF, CMP #### [facility] [address] [place] [phone] eGFR- Amer. >60 Normal [facility] Comment on above: Performed By: #### C BCDIF, CMP #### [facility] [address] GFR/1.73 sq M predicted among non-blacks MDRD (S/P/Bld) [Vol rate/Area] mL/min/{1.73_m2} Normal [facility] Comment on above: Result Comment: eGFR [...] reflect actual GFR. Performed By: #### C JAKE CMP #### [facility] [address] [place], [place] [address] Glucose [Mass/Vol] 127 mg/dL High 74-99 [facility] Comment on above: Result Comment: The [place] Diabetes [employer] (ADA) provides guidance for cutoff [...] Standards of Medical Care in Diabetes 2016, [place] [employer]. Diabetes Care. 2016.39(Suppl 1). Performed By: #### C ANTONIOF, CMP #### [facility] [address] [place] [address] Potassium [Moles/Vol] 4.0 mmol/L Normal 3.7-5.1 [facility] Comment on above: Performed By: #### C JAKE CMP #### [facility] [address] [place] [address] Sodium [Moles/Vol] 140 mmol/L Normal 136-144 [facility] Comment on above: Performed By: #### C JAKE, CMP #### [facility] [address] [place], [place] [phone] Urea nitrogen [Mass/Vol] 8 mg/dL Low 9-24 [facility] Comment on above: Performed By: #### C JAKE CMP #### [facility] [address] [place], [place] [phone] Blood Cultureon 01-24-2019 Bacteria identified Cx Nom (Bld) Culture Result - No growth 5 days Normal [facility] Comment on above: Performed By: #### B LCUL ####[facility] [place], [place] [phone] Bacteria identified Cx Nom (Bld) Culture Result - No growth 5 days Normal [facility] Comment on above: Performed By: #### B LCUL ####[facility] [address] [place], [place] [phone] CASE MGT INIT Garo 2018 CASE MGT INIT DOE HNO ID: [id number] Author: Amanda Simeon (Sw) Service: ? 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 No SOCIAL: Living Arrangement: Home Lives With: Spouse Financial Resources: Disabled Primary Contact: Extended Emergency Contact Information Primary Emergency Contact: Dasia Covington Address: [address] [place] [address] OF [facility] Mobile Relation: Spouse Supportive: Yes Other Important [...] 0 I feel financially burdened by my asi-nu-xkwcgn expenses for my prescription medication: Disagree completely [...] indicated POTENTIAL TRANSITION PLANS Home Home Care Detention Facility/Intermediate Care Facility Pt is sedated and [...] decision yet. Spouse may need list of [place] facilities and OZ explained CM able to provide. Pt's spouse requested OZ call JAZZY Ewing at [phone] to see which agency she works for [...] 24, 2019 TIME: 11:59 AM PAGER/CONTACT #: [phone] Normal [facility] CBCon 01-24-2019 Erythrocyte distribution width (RBC) [Ratio] 18.2 % High 11.5-15.0 [facility] Comment on above: Performed By: #### C BCDIF, CMP #### [facility] [address] [facility] [phone] Hematocrit (Bld) [Volume fraction] 36.3 % Low 39.0-51.0 [facility] Comment on above: Performed By: #### C BCDIF, CMP #### [facility] [address] [facility] [phone] Hemoglobin (Bld) [Mass/Vol] 11.7 g/dL Low 13.0-17.0 [facility] Comment on above: Performed By: #### C BCDIF, CMP #### [facility] [address] [facility] [phone] MCH (RBC) [Entitic mass] 29.8 pG Normal 26.0-34.0 [facility] Comment on above: Performed By: #### C BCDIF, CMP #### [facility] [address] [facility] [phone] MCHC (RBC) [Mass/Vol] 32.2 g/dL Normal 30.5-36.0 [facility] Comment on above: Performed By: #### C BCDIF, CMP #### [facility] [address] [facility] [phone] MCV (RBC) [Entitic vol] 92.4 fL Normal 80.0-100.0 [facility] Comment on above: Performed By: #### C BCDIF, CMP #### [facility] [address] [facility] [phone] Platelet mean volume (Bld) [Entitic vol] 9.7 fL Normal 9.0-12.7 [facility] Comment on above: Performed By: #### C BCDIF, CMP #### [facility] [address] [facility] [phone] Platelets (Bld) [#/Vol] 382 10*3/uL Normal 150-400 [facility] Comment on above: Performed By: #### C BCDIF, CMP #### [facility] [address] [facility] [phone] RBC (Bld) [#/Vol] 3.93 10*6/uL Low 4.20-6.00 [facility] Comment on above: Performed By: #### C BCDIF, CMP #### [facility] [address] [facility] [phone] WBC (Bld) [#/Vol] 9.60 10*3/uL Normal 3.70-11.00 [facility] Comment on above: Performed By: #### C BCDIF, CMP #### [facility] [address] [facility] [phone] CONSULT PROGon 01-24-2019 CONSULT PROG HNO ID: [id number] Author: Justin Davila Service: Pulmonary Disease Author Type: Physician Type: Consult Progress Note Filed: 01/24/2019 11:19 AM Note Text: [facility] PULMONARY MEDICINE [...] pathology data. [place] Davila MD Staff, Respiratory [place] [facility] Pager #[phone] SUBJECTIVE CHIEF COMPLAINT: Respiratory failure INTERVAL HPI:Jorge [...] Function, Amylase, AND Lipase Recent Labs 01/23/19192401/23/1935 01/23/19 0110 01/22/19 1227 TPROT -- -- [...] 24, 2019 TIME: 11:06 AM PAGER/CONTACT #: [phone] [facility] CONSULT PROG HNO ID: [id number] Author: Sandra Simon Service: Endocrinology Author Type: [...] Units SUBCUTANEOUS q 12 H Gayatri E (Finisher Map And Chart) Sly 5,000 Units at 01/24/19 0957 - cefTRIAXone 1 g in D5W 100 mL MB+ (ROCEPHIN) 1 g INTRAVENOUS q 24 H Gayatri E (Finisher Map And Chart) Sly 200 mL/hr at 01/24/19 0955 1 g at 01/24/19 0955 - propofol infusion (DIPRIVAN) 5-60 mcg/kg/min INTRAVENOUS CONTINUOUS Gayatri E (Finisher Map And Chart) Sly CURRENT ALLERGIES: Allergies As of Date: [...] Simon MD DATE: January 24, 2019 Normal [facility] Cortisolon 01-24-2019 Cortisol 2.9 ug/dL Normal [facility] Comment on above: Result Comment: Carlo isol Reference Range: AM = 5.3-22.5, PM = 3.4-16.8 Performed By: #### N TBNP #### [facility] [address] [place] [address] Free T3on 01-24-2019 Free T3 [Mass/Vol] 1.0 pg/mL Low 2.3-4.1 [facility] Comment on above: Performed By: #### N TBNP #### [facility] [address] [place] [address] Free T4on 01-24-2019 Free T4 [Mass/Vol] 0.5 ng/dL Low 0.9-1.7 [facility] Comment on above: Performed By: #### N TBNP #### [facility] [address] [place] [address] Performed By: #### C BCDARI CMP #### [facility] [address] [place] [address] Magnesiumon 01-24-2019 Magnesium [Mass/Vol] 1.9 mg/dL Normal 1.7-2.3 [facility] Comment on above: Performed By: #### C BCDARI, CMP #### [facility] [address] [place] [address] NURSING PROGon 01-24-2019 NURSING PROG HNO ID: [id number] Author: Alessandra (Rn) JAZZY Norton Service: Nursing Author Type: Registered Nurse Type: Nursing Progress Note Filed: 01/24/2019 12:49 PM Note Text: Nursing Progress: Topic: RESTRAINT NON-VIOLENT PATIENT NAME: Jorge Covington PATIENT LOCATION: [place] [address]0001 -1 The patient demonstrates [...] 12:49 PM Alessandra Norton RN [facility] NUTRITIONon 01-24-2019 NUTRITION HNO ID: [id number] Author: Laurie Gonzalez Service: Nutrition Therapy Author [...] lb) 01/12/18 : 104.3 kg (230 lb) [place] Body Weight: 63.8kg Resting Metabolic Rate: 1809 Estimated kilocalorie needs: 5017-5880 kilocalories determined by 25-30 kcal/kg Estimated protein needs:65-83 grams determined by 1.0-1.3 g/kg [place] weight Estimated fluid needs: 0774-2248 milliliters based on 1 mL per kcal [...] 2019 TIME: 12:03 PM PAGER: [facility] PROGRESSon 01-24-2019 PROGRESS HNO ID: [id number] Author: Merrick Kuhn Service: Critical Care Author [...] the A/P section below. Please refer to [facility] for list of inpatient medications. VITAL [...] Is Patient Clinically Ready to Transfer to 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 Current Assessment AND Plan Assessment: H/O Hypothyroidism On Po Levothyroxine stopped taking as ran out of prescriptons PLAN: Endocrinology on board IV Levothyroxine Daily thyroid studies Pulmonary COPD (chronic obstructive pulmonary disease) ([facility]) 06/08/2018 - Present Acute respiratory failure ([facility]) 01/22/2019 - Present Current Assessment AND Plan Assessment: Intubated 01/22 overnight PLAN: Lung protective ventilation Wean as tolerated Infectious Disease Septicemia ([facility]) 01/23/2019 - Present Current Assessment [...] HOURS 01/22/192228 -- 01/22/192229 pneumatic compression stockings (dc,in) 01/22/191814 vte non-pharmacologic prophylaxis - none indicated (dc,in) 01/22/191814 activity - mobilize patient ([place]) VTE Prophylaxis: VTE prophylaxis appropriate Plan of care discussed with: Provider, RN, Patient SIGNATURE: Camila Rizvi MD PATIENT NAME: Jorge Covington DATE: January 24, 2019 TIME: 11:40 AM PAGER/CONTACT #: [phone] ICU STAFF PHYSICIAN NOTE OF PERSONAL INVOLVEMENT [...] DATE: 01/24/2019 TIME: 3:41 PM [facility] PROGRESS HNO ID: [id number] Author: Shirley Romo Service: ? Author Type: [...] T3 T4 on iv synthroid hypercapnea Suspect rudy/ohs uti cultures pending GNB septicemia on rocephin [...] 01/22/192228 -- 01/22/19 223 pneumatic compression stockings (dc,in) 01/22/19 181 vte non-pharmacologic prophylaxis - none indicated (dc,in) 01/22/19 181 activity - mobilize patient ([place]) VTE Prophylaxis: VTE prophylaxis appropriate SIGNATURE: Shirley Romo DO PATIENT NAME: Jorge Covington DATE: January 24, 2019 TIME: 9:38 AM PAGER/CONTACT #: [phone] Normal [facility] Phosphoruson 01-24-2019 Phosphate [Mass/Vol] 1.6 mg/dL Low 2.7-4.8 [facility] Comment on above: Performed By: #### C BCDIF, CMP #### [facility] [address] [facility] [phone] T3on 01-24-2019 T3 26 ng/dL Low 79-165 [facility] Comment on above: Performed By: #### C BCDIF, CMP #### [facility] [address] [facility] [phone] THERAPY NTon 01-24-2019 THERAPY NT HNO ID: [id number] Author: Faith De La RosaOtDemi Chew Service: Occupational Therapy Author Type: Occupational Therapist Type: Therapy (PT/OT/Speech/Resp) Filed: 01/24/2019 1:33 PM Note Text: OCCUPATIONAL THERAPY MISSED VISIT SERVICE DATE: 01/24/2019 SERVICE TIME: 1323 to 1323 ROOM: [place] [address] Attempted Evaluation. Patient not seen due to Illness. Per conversation with RN she confirmed is Pt confused, intubated and sedated. Discontinued OT orders Please reconsult if/when appropriate. ? SIGNATURE: Faith Chew, OTR/L PATIENT NAME: Jorge Covington DATE: January 24, 2019 TIME: 1:26 PM [facility] THERAPY NT HNO ID: [id number] Author: Annie De La RosaPtDemi Hare Service: Physical Therapy Author Type: Physical Therapist Type: Therapy (PT/OT/Speech/Resp) Filed: 01/24/2019 11:48 AM Note Text: PHYSICAL THERAPY MISSED VISIT SERVICE DATE: 01/24/2019 SERVICE TIME: 1023 to 1023 ROOM: [place] [address] Attempted Evaluation. Patient not seen due to (per RN not appropriate, to DC PT orders). Pt confused, intubated and sedated. Discontinued PT orders (without evaluation) as per JAZZY Apariico's suggestions. Please reconsult if/when appropriate. SIGNATURE: Annie Hare, PT PATIENT NAME: Jorge Covington DATE: January 24, 2019 TIME: 10:25 AM [facility] XR CHEST 1V FRONTALon 2018 XR [...] and/or infectious infiltrate. No significant pleural effusion. Dental Financial Coordinator: ALDO Transcribe Date/Time: Jan 24 2019 11:32A Dictated by : CRISTEL MACKENZIE MD This examination was interpreted and the report reviewed and electronically signed by: CRISTEL MACKENZIE MD on Jan 24 2019 11:34AM EST [id number] [facility] HNO ID: [id number] Author: DAVID Webb (Ct) Service: ? Author Type: Clinical Superintendent Factory Type: [facility] Filed: 01/23/2019 12:32 PM Note Text: [...] Webb January 23, 2019 12:32 PM [facility] HNO ID: [id number] Author: DAVID Sykes (Ct) Service: ? Author Type: Clinical Superintendent Factory Type: [facility] Filed: 01/22/2019 11:53 PM Note Text: [...] January 22, 2019 11:52 PM [facility] Basic Metabolic Panlon 01-23 Anion gap [Moles/Vol] 12 mmol/L Normal 9-18 [facility] Comment on above: Performed By: #### B MP ####[facility] [address] [place] [address] Calcium [Mass/Vol] 8.7 mg/dL Normal 8.5-10.2 [facility] Comment on above: Performed By: #### B MP ####[facility] [address] [place] [phone] Chloride [Moles/Vol] 105 mmol/L Normal 97-105 [facility] Comment on above: Performed By: #### B MP ####[facility] [address] [place] [address] CO2 [Moles/Vol] 23 mmol/L Normal 22-30 [facility] Comment on above: Performed By: #### B MP ####[facility] [address] [place], [place] [address] Creatinine [Mass/Vol] 0.71 mg/dL Low 0.73-1.22 [facility] Comment on above: Performed By: #### B MP ####[facility] Zoiqcdtuef5075 [address]5[address] eGFR- Amer. >60 Normal [facility] Comment on above: Performed By: #### B MP ####[facility] [address] [place], [place] [address] GFR/1.73 sq M predicted among non-blacks MDRD (S/P/Bld) [Vol rate/Area] mL/min/{1.73_m2} Normal [facility] Comment on above: Result Comment: eGFR [...] actual GFR. Performed By: #### B MP ####[facility] Msjpvpappw0566 [address]5[address] Glucose [Mass/Vol] 188 mg/dL High 74-99 [facility] Comment on above: Result Comment: The [place] [employer] Association (ADA) provides guidance for cutoff [...] Standards of Medical Care in Diabetes 2016, [place] [employer]. Diabetes Care. 2016.39(Suppl 1). Performed By: #### B MP ####[facility] [address] [place] [address] Potassium [Moles/Vol] 4.3 mmol/L Normal 3.7-5.1 [facility] Comment on above: Performed By: #### B MP ####[facility] [address]itfq[address]zh47[address] [place] [address] Sodium [Moles/Vol] 140 mmol/L Normal 136-144 [facility] Comment on above: Performed By: #### B MP ####[facility] [address]qnuirlvf[address]73 [place] [address] Urea nitrogen [Mass/Vol] 8 mg/dL Low 9-24 [facility] Comment on above: Performed By: #### B MP ####[facility] [address] [place] [address] Anion gap [Moles/Vol] 9 mmol/L Normal 9-18 [facility] Comment on above: Performed By: #### C BC, BMP, MG1, PHOS ####[facility] [address] [place] [phone] Calcium [Mass/Vol] 8.8 mg/dL Normal 8.5-10.2 [facility] Comment on above: Performed By: #### C BC, BMP, MG1, PHOS ####[facility] Fikqficppr2435 [address] Chloride [Moles/Vol] 102 mmol/L Normal 97-105 [facility] Comment on above: Performed By: #### C BC, BMP, MG1, PHOS ####[facility] Vcqhzbolkp3296 [address] CO2 [Moles/Vol] 22 mmol/L Normal 22-30 [facility] Comment on above: Performed By: #### C BC, BMP, MG1, PHOS ####[facility] [address]can2261 [place] [phone] Creatinine [Mass/Vol] 0.39 mg/dL Low 0.73-1.22 [facility] Comment on above: Performed By: #### C BC, BMP, MG1, PHOS ####[facility] Pqnthbpwns5040 [address] eGFR- Amer. >60 Normal [facility] Comment on above: Performed By: #### C BC, BMP, MG1, PHOS ####[facility] [address] [place] [phone] GFR/1.73 sq M predicted among non-blacks MDRD (S/P/Bld) [Vol rate/Area] mL/min/{1.73_m2} Normal [facility] Comment on above: Result Comment: eGFR [...] By: #### C BC, BMP, MG1, PHOS ####[facility] Eqwcitfqqk8550 [address] Glucose [Mass/Vol] 165 mg/dL High 74-99 [facility] Comment on above: Result Comment: The [place] Diabetes [employer] (ADA) provides guidance for cutoff [...] Standards of Medical Care in Diabetes 2016, [place] [employer]. Diabetes Care. 2016.39(Suppl 1). Performed By: #### C BC, BMP, MG1, PHOS ####[facility] [address] [place] [address] Potassium [Moles/Vol] Unable to assay. Specimen hemolyzed. Normal 3.7-5.1 [facility] Comment on above: Result Comment: CALL ED TO ICU JUAN F CUADRA Performed By: #### C BC, BMP, MG1, PHOS ####[facility] [address]uzry13[address] [place] [address] Sodium [Moles/Vol] 133 mmol/L Low 136-144 [facility] Comment on above: Performed By: #### C BC, BMP, MG1, PHOS ####[facility] [address]ra[address]ajd6[address] [place] [address] Urea nitrogen [Mass/Vol] 9 mg/dL Normal 9-24 [facility] Comment on above: Performed By: #### C BC, BMP, MG1, PHOS ####[facility] Flygdlbsbb8568 [place] [address] CBCon 01-23-2019 Erythrocyte distribution width (RBC) [Ratio] 19.0 % High 11.5-15.0 [facility] Comment on above: Performed By: #### C BC, BMP, MG1, PHOS ####[facility] N[address]jwkh8[address] [place] [address] Hematocrit (Bld) [Volume fraction] 41.0 % Normal 39.0-51.0 [facility] Comment on above: Performed By: #### C BC, BMP, MG1, PHOS ####[facility] Erxzrrmhel[address] [place] [address] Hemoglobin (Bld) [Mass/Vol] 12.9 g/dL Low 13.0-17.0 [facility] Comment on above: Performed By: #### C BC, BMP, MG1, PHOS ####[facility] Owkinrimex9[address] [place] [address] MCH (RBC) [Entitic mass] 29.8 pG Normal 26.0-34.0 [facility] Comment on above: Performed By: #### C BC, BMP, MG1, PHOS ####[facility] [address] [place] [address] MCHC (RBC) [Mass/Vol] 31.5 g/dL Normal 30.5-36.0 [facility] Comment on above: Performed By: #### C BC, BMP, MG1, PHOS ####[facility] [address] [place] [address] MCV (RBC) [Entitic vol] 94.7 fL Normal 80.0-100.0 M [facility] Comment on above: Performed By: #### C BC, BMP, MG1, PHOS ####[facility] [address] [place] [address] Platelet mean volume (Bld) [Entitic vol] 10.1 fL Normal 9.0-12.7 [facility] Comment on above: Performed By: #### C BC, BMP, MG1, PHOS ####[facility] [address] [place] [address] Platelets (Bld) [#/Vol] 388 10*3/uL Normal 150-400 [facility] Comment on above: Performed By: #### C BC, BMP, MG1, PHOS ####[facility] [address] [place], [place] [address] RBC (Bld) [#/Vol] 4.33 10*6/uL Normal 4.20-6.00 [facility] Comment on above: Performed By: #### C BC, BMP, MG1, PHOS ####[facility] [address] [place], [place] [address] WBC (Bld) [#/Vol] 6.32 10*3/uL Normal 3.70-11.00 [facility] Comment on above: Performed By: #### C BC, BMP, MG1, PHOS ####[facility] [address] [place], [place] [phone] CONSULTon 01-23-2019 CONSULT HNO ID: [id number] Author: Rossi Vásquez) Marleny Service: Endocrinology Author [...] -- IV lt4 is being ordered from [facility] and should arrive by 1 pm [...] assisted care facility after his discharge from [facility] for admission of intradural cyst vs [...] (LEVOPHED) 0.5-50 mcg/min INTRAVENOUS CONTINUOUS Gayatri E (Finisher Map And Chart) Sly - DOPamine iv infusion 800 mg/250 mL D5W 2.5-20 mcg/kg/min INTRAVENOUS CONTINUOUS Gayatri E (Finisher Map And Chart) Sly Stopped at 01/23/19 0324 - levothyroxine [...] Units SUBCUTANEOUS q 12 H Gayatri E (Finisher Map And Chart) Sly 5,000 Units at 01/23/19 0850 - cefTRIAXone 1 g in D5W 100 mL MB+ (ROCEPHIN) 1 g INTRAVENOUS q 24 H Gayatri E (Finisher Map And Chart) Sly 200 mL/hr at 01/23/19 0848 1 g at 01/23/19 0848 - propofol infusion (DIPRIVAN) 5-60 mcg/kg/min INTRAVENOUS CONTINUOUS Gayatri E (Finisher Map And Chart) Sly - fentaNYL 20 mcg/mL iv infusion in NaCl 0.9% 100 mL 25-250 mcg/hr INTRAVENOUS CONTINUOUS Gayatri E (Finisher Map And Chart) Sly 10 mL/hr at 01/23/19 0947 200 [...] file Gets together: Not on file Attends sikh service: Not on file Active member of [...] Fingerstick glucose readings reviewed. Rossi Farmer MD [facility] Endocrinology and Metabolism [place] [facility] January 23, 2019 11:20 AM Normal [facility] CONSULT HNO ID: [id number] Author: Christina Vásquez) Kori Service: Pulmonary Disease [...] is in agreement with current management plan. [facility] STAFF PHYSICIAN NOTE OF PERSONAL INVOLVEMENT IN [...] per chart review. On arrival to the [place] ED, his O2 saturation on room air was 88%. He was also found to be hypotensive with a BP of 90/51. ABG on arrival demonstrated 7.28/63.4/82.7 on 2 L of oxygen. In the ED, he was placed on BiPAP 10/5 at 50% FiO2 which was then increased [...] (!) 48 16 95 % ? ? 10/26/19 1830 ? ? ? 61 16 (!) [...] 1.6 1.7 MHGB 1.2 1.2 1.2 Christina Kori, MD Staff, Respiratory [place] [facility] Pager #[phone] Normal [facility] Cortisolon 01-23-2019 Cortisol 26.3 ug/dL Normal [facility] Comment on above: Result Comment: Carlo isol Reference Range: AM = 5.3-22.5, PM = 3.4-16.8 Performed By: #### N TBNP #### [facility] [address] [facility] [phone] Free T3on 01-23-2019 Free T3 [Mass/Vol] pg/mL Low 2.3-4.1 [facility] Comment on above: Performed By: #### F REET3 ####[facility] [place], [place] [phone] Free T4on 01-23-2019 Free T4 [Mass/Vol] ng/dL Low 0.9-1.7 [facility] Comment on above: Performed By: #### F T4 ####[facility] [place], [place] [phone] HISTORY PHYSICALon 9 HISTORY PHYSICAL HNO ID: [id number] Author: Shirley Romo Service: ? Author Type: Physician Type: HANDP Filed: 01/23/2019 8:27 AM Note Text: INTERNAL MEDICINE HANDP EXAMINATION SERVICE DATE: 01/23/2019 SERVICE TIME: 8:20 AM PRIMARY CARE PHYSICIAN: Brian Cardona MD Subjective CHIEF COMPLAINT: Altered mental [...] (!) 50 16 97 % ? ? 01/22/195 93/60 ? ? (!) 54 16 96 [...] Copd Decompensated hypothryoidism with myxedema hypercapnea Suspect rudy/ohs uti culture pending on rocephin Plan Consult pulm, icu and endo Continue with current poc Medication and Non-Pharmacologic VTE Prophylaxis/Anticoagu lants Anticoagulant AND Antiplatelet Medications (From admission, onward) Start Dose Route Frequency Ordered Stop 01/22/192229 heparin 5,000 Units injection (Medical Risk Categories) 5,000 Units SUBCUTANEOUS EVERY 12 HOURS 01/22/192228 -- 01/22/192229 pneumatic compression stockings (dc,oh) 01/22/191814 vte non-pharmacologic prophylaxis - none indicated (dc,oh) 01/22/191814 activity - mobilize patient (dc,in) VTE Prophylaxis: VTE prophylaxis appropriate SIGNATURE: Shirley Romo DO PATIENT NAME: Jorge Covington DATE: January 23, 2019 TIME: 8:20 AM PAGER/CONTACT #: [phone] Normal [facility] Legionella Urine Agon 2018 Legionella Urine Ag Negative Normal Negative [facility] Comment on above: Performed By: #### L EGUAG ####[facility] Lfomavykgw8752 [address] Magnesiumon 01-23-2019 Magnesium [Mass/Vol] 1.8 mg/dL Normal 1.7-2.3 [facility] Comment on above: Performed By: #### C BC, BMP, MG1, PHOS ####[facility] Kirhvsqvjq1091 [address] NURSING PROGon 01-23-2019 NURSING PROG HNO ID: [id number] Author: Alessandra De La RosaRn) JAZZY Norton Service: Nursing Author Type: Registered Nurse Type: Nursing Progress Note Filed: 01/23/2019 12:56 PM Note Text: Nursing Progress: Topic: RESTRAINT NON-VIOLENT PATIENT NAME: Jorge Covington PATIENT LOCATION: [facility]2329/[facility] The patient demonstrates Attempting to Remove Medical [...] TIME: 12:55 PM Alessandra Norton RN Normal [facility] NURSING PROG HNO ID: [id number] Author: Britta De La RosaRn) JAZZY Dorado Service: Nursing Author Type: Registered Nurse Type: Nursing Progress Note Filed: 01/23/2019 12:27 AM Note Text: Nursing Progress: Topic: RESTRAINT NON-VIOLENT PATIENT NAME: Jorge Covington PATIENT LOCATION: [facility]2329/[facility]2329 The patient demonstrates as evidenced by the [...] NON-VIOLENT PATIENT NAME: Jorge Covington PATIENT LOCATION: [place] [address]/[facility]0001 The patient demonstrates as evidenced by the [...] 12:27 AM Britta Dorado RN [facility] NURSING PROG HNO ID: [id number] Author: Rosalinda De La RosaRn) JAZZY Narayan Service: ? Author Type: Registered Nurse Type: Nursing Progress Note Filed: 01/22/2019 11:44 PM Note Text: Pt being prepared for intubation. RT, RNs, CHURN DRILLER Braxton Armas at bedside. Time out performed. PT assessed. 100% fio2 administered via bag valve mask [id number]-akrulnhu assisting via remote access camera and verifying [...] 2336-pt remains hypotensive neosynephrine 200mcg IV given 2411-m-jrpxqgop contacted again for orders 2343-CXR done. BP improving 90's/50's [facility] PROGRESSon 01-23-2019 PROGRESS HNO ID: [id number] Author: Dalton Chambers Service: Critical Care Author [...] infusion fentaNYL Last Rate: 200 mcg/hr (01/23/19 8502) RESPIRATORY Mechanical Ventilation: Yes, on mechanical ventilation [...] Is Patient Clinically Ready to Transfer to [facility] or SDU?: No Discharge Planning: To be determined ASSESSMENT AND PLAN Neurology Myxedema coma (HCC) Assessment: H/O Hypothyroidism On Po Levothyroxine stopped taking as ran out of prescriptons PLAN: Endocrinology on board IV Levothyroxine Pulmonary Acute respiratory failure (HCC) Assessment: Intubated overnight PLAN: Lung protective ventilation, Wean as tolerated Infectious Disease Septicemia ([facility]) Assessment: Growing GNB in blood [...] 2229 -- 01/22/19 2230 pneumatic compression stockings (dc,oh) 01/22/19 181 vte non-pharmacologic prophylaxis - none indicated (dc,oh) 01/22/191814 activity - mobilize patient (dc,in) VTE Prophylaxis: VTE prophylaxis appropriate Plan of care discussed with: Family/Significant Other: and RN SIGNATURE: Dalton Chambers MD PATIENT NAME: Jorge Covington DATE: January 23, 2019 TIME: 12:02 PM PAGER/CONTACT #: [phone] ICU STAFF Note of Personal Involvement in [...] be documented and billed separately. [facility] PROGRESS HNO ID: [id number] Author: Horace Jose Rai Service: Critical Care [...] Levothyroxine and follow. Horace Jose Rai, MD, [facility] E-ICU Staff, Pulmonary and Critical Care Medicine [facility] Respiratory [place] Pager #[phone] [facility] PROGRESS HNO ID: [id number] Author: Gayatri Heart Service: eHospital Author Type: [...] Assessment: hypotensive, poor UO SIGNATURE: Gayatri Heart APRN.LAWRENCE PATIENT NAME: Jorge Covington DATE: January 23 2019 TIME: 12:50 AM [facility] PROGRESS HNO ID: [id number] Author: Gayatri Heart Service: eHospital Author Type: [...] Collaboration: Plan of care discussed with ospital Pr Manager SIGNATURE: Gayatri Heart APRN.CNP PATIENT NAME: Jorge Covington DATE: January 23 2019 TIME: 12:50 AM [facility] PROGRESS HNO ID: [id number] Author: Gayatri Heart Service: eHospital Author Type: [...] /DOUG Collaboration: Plan of care discussed with [facility] Pr Manager SIGNATURE: Gayatri Heart APRN.CNP PATIENT NAME: Jorge Covington DATE: January 22 2019 TIME: 11:26 PM Normal [facility] Phosphoruson 01-23-2019 Phosphate [Mass/Vol] 3.1 mg/dL Normal 2.7-4.8 [facility] Comment on above: Performed By: #### C BC, BMP, MG1, PHOS ####[facility] [address] [place] [address] Staph aureus PCRon 9 MRSA PCR Negative [facility] Comment on above: Performed By: #### C BCDIF, CMP #### [facility] [address] [place] [address] S aureus Spec Source Nasal [facility] Comment on above: Performed By: #### C BCDIF, CMP #### [facility] [address] [place] [address] Staph aureus PCR Negative [facility] Comment on above: Performed By: #### C BCDIF, CMP #### [facility] [address] [place] [address] MRSA PCR Negative [facility] Comment on above: Performed By: #### S APCR ####[facility] [address] [place] [address] [place] [address] S aureus Spec Source Nasal [facility] Comment on above: Performed By: #### S APCR ####[facility] [address] [place] [address] [place] [address] Staph aureus PCR Negative [facility] Comment on above: Performed By: #### S APCR ####[facility] [address] [place] [address] [place] [phone] THERAPY NTon 01-23-2019 THERAPY NT HNO ID: [id number] Author: Shyanne De La RosaPt) Jerrod Service: Physical Therapy Author Type: Physical Therapist Type: Therapy (PT/OT/Speech/Resp) Filed: 01/23/2019 10:06 AM Note Text: PHYSICAL THERAPY MISSED VISIT SERVICE DATE: 01/23/2019 SERVICE TIME: 1003 to 1004 ROOM: [place] [address] Attempted Evaluation. Patient not seen due to Illness(Per nsg pt not appropriate for PT Eval at this time. Sedated. Intubated). SIGNATURE: Shyanne Elder PT PATIENT NAME: Jorge Covington DATE: January 23, 2019 TIME: 10:05 AM [facility] THERAPY NT HNO ID: [id number] Author: Drea De La RosaOt/LDemi Burciaga Service: Occupational Therapy Author Type: Occupational Therapist Type: Therapy (PT/OT/Speech/Resp) Filed: 01/23/2019 10:05 AM Note Text: OCCUPATIONAL THERAPY MISSED VISIT SERVICE DATE: 01/23/2019 SERVICE TIME: 1004 to 1004 ROOM: [place] [address] Attempted Evaluation. Patient not seen due to Illness. RNAlessandra, reported that pt is not appropriate for therapy at this time. Per pt chart, pt is sedated and intubated. Will re-attempt as schedule allows with pt appropriateness. SIGNATURE: Drea Burciaga OT/L PATIENT NAME: Jorge Covington DATE: January 23, 2019 TIME: 10:04 AM Normal [facility] Urine Cultureon 01-23-2019 Bacteria identified Cx Nom (U) Culture Result - 50,000 - <100,000 CFU/ml Normal urogenital cristel Normal [facility] Comment on above: Performed By: #### C BCDIF, CMP #### [facility] [address] [facility] [phone] Urine Strep Pneumo FOR WEST USE ONLYon 01-23-2019 Urine Strep Pneumo FOR WEST USE ONLY Negative Normal Negative [facility] Comment on above: Result Comment: Stre p Pneumo vaccine may cause a false positive Strep Pneumo antigen result in the 48 hours following vaccine. Performed By: #### U STPW ####[facility] [address] [place] [phone] XR ABDOMEN 1V SUPINEon 01-23 XR ABDOMEN [...] mildly distended small bowel loops. Consider follow-up. Dental Financial Coordinator: ALDO Transcribe Date/Time: Jan 23 2019 12:38P Dictated by : KASI YA MD This examination was interpreted and the report reviewed and electronically signed by: KASI YA MD on Jan 23 2019 12:41PM EST [id number] Normal [facility] XR ABDOMEN 1V SUPINE * * [...] Evaluate tube, line or lead position (accession [id number]), Evaluate tube, line or lead position (accession [id number]) MQ: XC2_5 Comparison: Same-day chest radiograph RESULT: [...] This could represent atelectasis, pneumonia, or aspiration. Dental Financial Coordinator: ALDO Transcribe Date/Time: Jan 22 2019 11:57P Dictated by : KARI VIVAS MD This examination was interpreted and the report reviewed and electronically signed by: KARI VIVAS MD on Jan 23 2019 12:03AM EST [id number] [facility] XR CHEST 1V FRONTAL PORTon 1 [...] Evaluate tube, line or lead position (accession [id number]), Evaluate tube, line or lead position (accession [id number]) MQ: XC2_5 Comparison: Same-day chest radiograph RESULT: [...] This could represent atelectasis, pneumonia, or aspiration. Dental Financial Coordinator: PSCB Transcribe Date/Time: Jan 22 2019 11:57P Dictated by : KARI VIVAS MD This examination was interpreted and the report reviewed and electronically signed by: KARI VIVAS MD on Jan 23 2019 12:03AM EST [id number] [facility] ALLIED HEALTHon 01-22-2019 ALLIED HEALTH HNO ID: [id number] Author: Cathi (Ct) DAVID Savage Service: ? Author Type: Clinical Superintendent Factory Type: [facility] Filed: 01/22/2019 12:47 PM [...] Webb January 22, 2019 12:46 PM Normal [facility] Blood Cultureon 01-22-2019 Bacteria identified Cx [...] to and read back by:Criss [place] [id number] Chris --> ABNORMAL ALERT Klebsiella oxytoca detected by microarray. Confirmation and --> ABNORMAL ALERT susceptibility testing to follow.(*), Negative for Acinetobacter spp. --> ABNORMAL ALERT and Pseudomonas aeruginosa by --> ABNORMAL ALERT microarray.. Called to and read back by: Corie Norton at [facility], on --> ABNORMAL ALERT 01.22.19 at 1215, [...] <=0.5 F Cefazolin SUSCEPTIBLE F Critically abnormal [facility] Comment on above: Performed By: #### T SH #### [facility] [address] [facility] [phone] Bacteria identified Cx Nom (Bld) Culture Result - No growth 5 days Normal [facility] Comment on above: Performed By: #### B LCUL ####[facility] [id number] [place], [place] [phone] CBC and Differentialon 01-22 Abs Baso 0.06 k/uL Normal <0.11 [facility] Comment on above: Performed By: #### C BCDIF, CMP #### [facility] [address] Abs [place] 0.44 k/uL Normal <0.87 [facility] Comment on above: Performed By: #### C BCDIF, CMP #### [facility] [address] [place] [address] Abs Neut 2.49 k/uL Normal 1.45-7.50 [facility] Comment on above: Performed By: #### C BCDIF, CMP #### [facility] [address] [place] [address] Basophils/100 WBC (Bld) 1.1 % Normal [facility] Comment on above: Performed By: #### C BCDIF, CMP #### [facility] [address] [place] [address] Eosinophils (Bld) [#/Vol] 0.26 10*3/uL Normal <0.46 [facility] Comment on above: Performed By: #### C BCDIF, CMP #### [facility] [address] [place] [address] Eosinophils/100 WBC (Bld) 4.8 % Normal [facility] Comment on above: Performed By: #### C BCDIF, CMP #### [facility] [address] [place] [address] Erythrocyte distribution width (RBC) [Ratio] 18.9 % High 11.5-15.0 [facility] Comment on above: Performed By: #### C BCDIF, CMP #### [facility] [address] [place] [address] Hematocrit (Bld) [Volume fraction] 44.0 % Normal 39.0-51.0 [facility] Comment on above: Performed By: #### C BCDIF, CMP #### [facility] [address] [place] [address] Hemoglobin (Bld) [Mass/Vol] 13.8 g/dL Normal 13.0-17.0 [facility] Comment on above: Performed By: #### C BCDIF, CMP #### [facility] [address] [place] [address] Lymphocytes (Bld) [#/Vol] 2.17 10*3/uL Normal 1.00-4.00 [facility] Comment on above: Performed By: #### C BCDIF, CMP #### [facility] [address] [place] [phone] Lymphocytes/100 WBC (Bld) 40.0 % Normal [facility] Comment on above: Performed By: #### C BCDIF, CMP #### [facility] [address] MCH (RBC) [Entitic mass] 29.6 pG Normal 26.0-34.0 [facility] Comment on above: Performed By: #### C BCDIF, CMP #### [facility] [address] [place] [address] MCHC (RBC) [Mass/Vol] 31.4 g/dL Normal 30.5-36.0 [facility] Comment on above: Performed By: #### C BCDIF, CMP #### [facility] [address] [place] [address] MCV (RBC) [Entitic vol] 94.4 fL Normal 80.0-100.0 [facility] Comment on above: Performed By: #### C BCDIF, CMP #### [facility] [address] Monocytes/100 WBC (Bld) 8.1 % Normal [facility] Comment on above: Performed By: #### C BCDIF, CMP #### [facility] [address] Neutrophils/100 WBC (Bld) 46.0 % Normal [facility] Comment on above: Performed By: #### C BCDIF, CMP #### [facility] [address] [place] [phone] Platelet mean volume (Bld) [Entitic vol] 9.6 fL Normal 9.0-12.7 [facility] Comment on above: Performed By: #### C BCDIF, CMP #### [facility] [address] [place] [phone] Platelets (Bld) [#/Vol] 389 10*3/uL Normal 150-400 [facility] Comment on above: Performed By: #### C BCDIF, CMP #### [facility] [address] [place] [address] RBC (Bld) [#/Vol] 4.66 10*6/uL Normal 4.20-6.00 [facility] Comment on above: Performed By: #### C BCDIF, CMP #### [facility] [address] [place] [address] WBC (Bld) [#/Vol] 5.42 10*3/uL Normal 3.70-11.00 [facility] Comment on above: Performed By: #### C BCDIF, CMP #### [facility] [address] [place] [address] Comp Metabolic Panelon 01-22 Albumin [Mass/Vol] 4.1 g/dL Normal 3.9-4.9 [facility] Comment on above: Performed By: #### C BCDIF, CMP #### [facility] [address] [place] [address] ALP [Catalytic activity/Vol] 80 U/L Normal 38-113 [facility] Comment on above: Performed By: #### C BCDIF, CMP #### [facility] [address] [place] [address] ALT [Catalytic activity/Vol] 23 U/L Normal 10-54 [facility] Comment on above: Performed By: #### C BCDIF, CMP #### [facility] [address] [place] [address] Anion gap [Moles/Vol] 8 mmol/L Low 9-18 [facility] Comment on above: Performed By: #### C BCDIF, CMP #### [facility] [address] [place] [address] AST [Catalytic activity/Vol] 53 U/L High 14-40 [facility] Comment on above: Performed By: #### C BCDIF, CMP #### [facility] [address] [place] [address] Bilirubin [Mass/Vol] 0.2 mg/dL Normal 0.2-1.3 [facility] Comment on above: Performed By: #### C BCDIF, CMP #### [facility] [address] [place] [address] Calcium [Mass/Vol] 9.9 mg/dL Normal 8.5-10.2 [facility] Comment on above: Performed By: #### C BCDIF, CMP #### [facility] [address] [place] [phone] Chloride [Moles/Vol] 103 mmol/L Normal 97-105 [facility] Comment on above: Performed By: #### C BCDIF, CMP #### [facility] [address] CO2 [Moles/Vol] 29 mmol/L Normal 22-30 [facility] Comment on above: Performed By: #### C BCDIF, CMP #### [facility] [address] [place] [phone] Creatinine [Mass/Vol] 0.90 mg/dL Normal 0.73-1.22 [facility] Comment on above: Performed By: #### C BCDIF, CMP #### [facility] [address] [place] [phone] eGFR- Amer. >60 Normal [facility] Comment on above: Performed By: #### C BCDIF, CMP #### [facility] [address] [place] [phone] GFR/1.73 sq M predicted among non-blacks MDRD (S/P/Bld) [Vol rate/Area] mL/min/{1.73_m2} Normal [facility] Comment on above: Result Comment: eGFR [...] Performed By: #### C BCDIF, CMP #### [facility] 1000 [facility] [phone] Glucose [Mass/Vol] 87 mg/dL Normal 74-99 [facility] Comment on above: Result Comment: The [place] Diabetes Association (ADA) provides guidance for cutoff [...] Standards of Medical Care in Diabetes 2016, [place] [employer]. Diabetes Care. 2016.39(Suppl 1). Performed By: #### C BCDIF, CMP #### [facility] [address] [place] [address] Potassium [Moles/Vol] 3.6 mmol/L Low 3.7-5.1 [facility] Comment on above: Performed By: #### C BCDIF, CMP #### [facility] [address] [place] [address] Protein [Mass/Vol] 7.8 g/dL Normal 6.3-8.0 [facility] Comment on above: Performed By: #### C BCDIF, CMP #### [facility] [address] [place] [address] Sodium [Moles/Vol] 140 mmol/L Normal 136-144 [facility] Comment on above: Performed By: #### C BCDIF, CMP #### [facility] [address] [place] [address] Urea nitrogen [Mass/Vol] 10 mg/dL Normal 9-24 [facility] Comment on above: Performed By: #### C BCDIF, CMP #### [facility] [address] [place] [address] ECG COMPLETEon 01-22-2019 ECG COMPLETE NAME : JORGE COVINGTON PID : [id number] : [id number] Gender : Male Race : ORD : [id number] Procedure Date : Jan 22 2019 12:21:31 Edit Date : Jan 22 2019 16:35:25 Diagnosis:SINUS BRADYCARDIA LOW VOLTAGE QRS NONSPECIFIC T WAVE ABNORMALITY ABNORMAL ECG 1422 no STEMI Confirmed by DO KINGSTON MICHELLE ([id number]), editorial clerk CITLALY WOO ([id number]) on 01/22/2019 4:35:24 PM Systolic BP : 90 mmHg Diastolic BP : 51 mmHg Ventricular Rate : 57 BPM Atrial Rate : 57 BPM P-R Interval : 194 ms QRS Duration : 88 ms Q-T Interval : 384 ms QTC Calculation(Bazett) : 373 ms P Kerman : 76 degrees R Kerman : 53 degrees T Kerman : 208 degrees Test Reason : Chest Pain Location : 1 : ER 04 Overread By : DO KINGSTON MICHELLE Edited By : CITLALY WOO Referred By : System,System Acquired by : System,System [facility] ED NOTEon 01-22-2019 ED NOTE HNO ID: [id number] Author: Annabel Couch RN Service: ? Author Type: Registered Nurse Type: ED Notes Filed: 01/22/2019 5:02 PM Note Text: Report called to Marjorie Rn. Patient in stable condition upon transfer to ICU [facility] ED NOTE HNO ID: [id number] Author: Annabel Couch RN Service: ? Author Type: Registered Nurse Type: ED Notes Filed: 01/22/2019 4:22 PM Note Text: Research Geologist called icu will be able to take report shortly on patient. Asked to hold patient in ED [facility] ED NOTE HNO ID: [id number] Author: Annabel Couch RN Service: ? Author Type: Registered Nurse Type: ED Notes Filed: 01/22/2019 12:22 PM Note Text: Bed: ED-04 Expected date: Expected time: Means of arrival: Comments: [facility] ED NOTE HNO ID: [id number] Author: Annabel Couch RN Service: ? Author Type: Registered Nurse Type: ED Notes Filed: 01/22/2019 12:13 PM Note Text: Patient presents to ED with mental status change [facility] ED PROV NOTEon 01-22-2019 ED PROV NOTE HNO ID: [id number] Author: Yue Kingston DO Service: Emergency Medicine [...] Per EMS, the patient had a negative Langley stroke scale. PAST MEDICAL HISTORY Diagnosis Date [...] slurred speech. He knows he is at [facility]. He can tell me his birthday. [...] to ICU. I also spoke with the brownell operator who is aware of the patient's admission. The attending who evaluated and managed this patient was Yue Kingston . HANDP obtained from pt's . Case was discussed with Dr. Trish Ozuna. Additional Tests or Interventions: ECG EKG INTERPRETATION: Ordered and Reviewed Rhythm: Sinus bradycardia Rate: 57 Kerman: Normal axis Intervals: Normal PA interval QRS Complex: Normal ST Segment: Normal ST-T segments QT Interval: Normal Compared with Prior: Unchanged Interpretation performed by Yue Kingston, Disposition The patient was admitted and case discussed with another provider. Admitted to ICU. Case discussed with Dr. Trish Ozuna. Condition at disposition is improved and guarded. Critical Care I spent a total of 30 minutes of critical care time in the evaluation and management of this patient. This was necessary to treat or prevent deterioration of the following condition(s): respiratory impairment and GROUP LEADER impairment, which the patient had and/or has high probability of suddenly developing. The patient received IV fluids, oxygen and consultation with (BIPAP) ICU during the time that critical care was provided. Critical care time excludes separately billed procedures. Critical care time documentation entered by Yue Kingston DO. SIGNATURE: DO Yue Montanez DO 01/22/19 1453 Normal [facility] HOSPon 01-22-2019 HOSP Patient:Cruz Covington MRN: [...] G89.29] COPD (chronic obstructive pulmonary disease) ([facility]) [J44.9] Hypothyroidism [E03.9] GERD (gastroesophageal reflux disease) [K21.9] Overactive bladder [N32.81] Septicemia due to Klebsiella pneumoniae ([facility]) [A41.4] Allergies: Dust Mold Spores [...] Per EMS, the patient had a negative Langley stroke scale. PAST MEDICAL HISTORY Diagnosis Date [...] slurred speech. He knows he is at [facility]. He can tell me his birthday. [...] to ICU. I also spoke with the brownell operator who is aware of the patient's admission. The attending who evaluated and managed this patient was Yue Kingston . HANDP obtained from pt's . Case was discussed with Dr. Trish Ozuna. Additional Tests or Interventions: ECG EKG INTERPRETATION: Ordered and Reviewed Rhythm: Sinus bradycardia Rate: 57 Kerman: Normal axis Intervals: Normal PA interval QRS Complex: Normal ST Segment: Normal [...] of the following condition(s): respiratory impairment and GROUP LEADER impairment, which the patient had and/or has [...] Couch RN, RN 01/22/2019 4:22 PM Signed Research Geologist called icu will be able to take [...] and Timing of last dose, Pharmacy records: [facility] Pharmacy and Prescription bottles Medication Nonadherence [...] Itching, Other: See Comments Sneezing Preferred Pharmacy: [facility] Pharmacy Current [employer] Medications: Prior to Admission medications as of 01/22/19 9124 Medication Sig Last Dose Taking acetaminophen (ARTHRITIS [...] Patient Name: Jorge Covington Patient Location: [facility] -1 Daily Note to ICU 1 c monitor and bipap per cart from ER This note was completed by: JAZZY Thapa APRN.CNP 01/22/2019 11:38 PM Signed [facility] [...] Collaboration: Plan of care discussed with ospital Pr Manager SIGNATURE: Gayatri Heart APRN.CNP PATIENT NAME: Jorge Covington DATE: January 22 2019 TIME: 11:26 PM Rosalinda Narayan, RN, RN 01/22/2019 11:44 PM Signed Pt being prepared for intubation. RT, RNs, KAE Armas at bedside. Time out performed. PT assessed. 100% fio2 administered via bag valve mask [id number] assisting via remote access camera and verifying [...] 2336-pt remains hypotensive neosynephrine 200mcg IV given [id number] contacted again for orders 2343-CXR done. BP improving 90's/50's Dank Armas APRN.CRNA 01/22/2019 11:43 PM Signed INTUBATION PROCEDURE NOTE PROCEDURE DATE: January 22, 2019 PROCEDURE START TIME: 0 PROCEDURE: OROTRACHEAL INTUBATION PRIMARY PROCEDURALIST: Dank Armas APRN.CRNA TACK WELDER(S): None INFORMED CONSENT: Due to emergent situation [...] NON-VIOLENT PATIENT NAME: Jorge Covington PATIENT LOCATION: [place] [address] [address] The patient demonstrates as evidenced by the [...] NON-VIOLENT PATIENT NAME: Jorge Covington PATIENT LOCATION: [place] [address]/[facility] The patient demonstrates as evidenced by the [...] 2019 TIME: 12:27 AM JAZZY Del Rio APRN.LAWRENCE 01/23/2019 12:53 AM Signed [facility]ospital Provider Note Call Initiation By: [facility]Hospital Primary Reason for Call: Low urine output;Cardiac / Hemodynamic status Objective Data:: BP soft, 85/56(66), UO 15/20 last 2 hours, remains bradycardic in low to mid 40s. Remote camera observation(s):: Remains intubated, sedated Assessment: hypotensive, poor UO SIGNATURE: Gayatri Heart APRN.CNP PATIENT NAME: Jorge Covingotn DATE: January 23 2019 TIME: 12:50 AM Gayatri Heart APRN.LAWRENCE 01/23/2019 12:55 AM Signed [facility] Provider Note [...] Collaboration: Plan of care discussed with [facility] Pr Manager SIGNATURE: Gayatri Heart APRN.CNP PATIENT NAME: Jorge [...] Levothyroxine and follow. Horace Jose Rai, MD, [facility] E-ICU Staff, Pulmonary and Critical Care Medicine [facility] Respiratory [place] Pager #[phone] Shirley Romo DO 01/23/2019 8:27 AM Signed INTERNAL MEDICINE HANDP EXAMINATION SERVICE DATE: 01/23/2019 SERVICE TIME: 8:20 AM PRIMARY CARE PHYSICIAN: Brian Cardona MD Subjective CHIEF COMPLAINT: Altered mental [...] Copd Decompensated hypothryoidism with myxedema hypercapnea Suspect rudy/ohs uti culture pending on rocephin Plan Consult pulm, icu and endo Continue with current poc Medication and Non-Pharmacologic VTE Prophylaxis/Anticoagu lants Anticoagulant AND Antiplatelet Medications (From admission, onward) Start Dose Route Frequency Ordered Stop 01/22/192229 heparin 5,000 Units injection (Medical Risk Categories) 5,000 Units SUBCUTANEOUS EVERY 12 HOURS 01/22/192228 -- 01/22/192229 pneumatic compression stockings (dc,oh) 01/22/191814 vte non-pharmacologic prophylaxis - none indicated (dc,oh) 01/22/191814 activity - mobilize patient (dc,oh) VTE Prophylaxis: VTE prophylaxis appropriate SIGNATURE: Shirley Romo, DO PATIENT NAME: Jorge Covington DATE: January 23, 2019 TIME: 8:20 AM PAGER/CONTACT #: [phone] Drea Burciaga OT/Eliseo 01/23/2019 10:05 AM Signed OCCUPATIONAL THERAPY MISSED VISIT SERVICE DATE: 01/23/2019 SERVICE TIME: 1004 to 1004 ROOM: [place] [address] Attempted Evaluation. Patient not seen due to [...] 01/23/2019 SERVICE TIME: 1003 to 1004 ROOM: [place] [address] Attempted Evaluation. Patient not seen due to [...] is in agreement with current management plan. [facility] STAFF PHYSICIAN NOTE OF PERSONAL INVOLVEMENT IN [...] per chart review. On arrival to the [place] ED, his O2 saturation on room air [...] AND Lipase Recent Labs 01/23/19 0535 01/23/19 01101/22/19224901/22/19 1227 TPROT -- -- -- -- 7.8 ALB -- -- -- -- 4.1 ALT -- -- -- -- 23 AST -- -- -- -- 53* ALKPHOS -- -- -- -- 80 TBILI -- -- -- -- 0.2 LACT 1.1 0.9 0.4* < > -- < > = values in this interval not displayed. Cardiac Enzymes ABGs Recent Labs 01/23/19 0501/23/1910901/22/192249 PH 7.374 7.294* 7.226* PCO2 43.0 51.8* 67.5* PO2 98.8* 81.7* 115* BE -0.3 -2.2 -1.7 HCO3 24.5 24.3 27.0* O2HB 95.1 92.6* 94.5* COHB 1.3 1.6 1.7 MHGB 1.2 1.2 1.2 Christina Sheikh MD Staff, Respiratory [place] [facility] Pager #[phone] Previous Version Rossi Farmer MD 01/23/2019 12:24 [...] -- IV lt4 is being ordered from [facility] and should arrive by 1 [...] assisted care facility after his discharge from [facility] for admission of intradural cyst [...] (LEVOPHED) 0.5-50 mcg/min INTRAVENOUS CONTINUOUS Gayatri E (Finisher Map And Chart) Sly - DOPamine iv infusion 800 mg/250 mL D5W 2.5-20 mcg/kg/min INTRAVENOUS CONTINUOUS Gayatri E (Finisher Map And Chart) Sly Stopped at 01/23/19 0324 - levothyroxine 150 mcg in NaCl (PF) 0.9% 3 mL iv syringe 150 mcg INTRAVENOUS DAILY (6 AM) Horace Jose Jain 150 mcg at 01/23/19 0307 - levothyroxine 150 mcg in NaCl (PF) 0.9% 3 mL iv syringe 150 mcg INTRAVENOUS ONE TIME Rossi Vásquez) Avadhkristynula - perflutren lipid microspheres 1.1 mg/mL 1.3 mL injection (DEFINITY) 1.3 mL INTRAVENOUS DIRECTED PRN Dalton Galavizhar - acetaminophen 1,000 mg tab(s) (TYLENOL) 1,000 [...] Units SUBCUTANEOUS q 12 H Gayatri E (Finisher Map And Chart) Sly 5,000 Units at 01/23/19 0850 - cefTRIAXone 1 g in D5W 100 mL MB+ (ROCEPHIN) 1 g INTRAVENOUS q 24 H Agyatri E (Finisher Map And Chart) Sly 200 mL/hr at 01/23/19 0848 1 g at 01/23/19 0848 - propofol infusion (DIPRIVAN) 5-60 mcg/kg/min INTRAVENOUS CONTINUOUS Gayatri E (Finisher Map And Chart) Sly - fentaNYL 20 mcg/mL iv infusion in NaCl 0.9% 100 mL 25-250 mcg/hr INTRAVENOUS CONTINUOUS Gayatri E (Finisher Map And Chart) Sly 10 mL/hr at 01/23/19 0947 200 [...] file Gets together: Not on file Attends sikh service: Not on file Active member of [...] Fingerstick glucose readings reviewed. Rossi Farmer MD [facility] Endocrinology and Metabolism [place] [facility] January 23, 2019 11:20 AM Previous [...] infusion fentaNYL Last Rate: 200 mcg/hr (01/23/19 1593) RESPIRATORY Mechanical Ventilation: Yes, on mechanical ventilation [...] Is Patient Clinically Ready to Transfer to [facility] or SDU?: No Discharge Planning: To [...] infusion fentaNYL Last Rate: 200 mcg/hr (01/23/19 2469) RESPIRATORY Mechanical Ventilation: Yes, on mechanical ventilation [...] Is Patient Clinically Ready to Transfer to [facility] or SDU?: No Discharge Planning: To be determined ASSESSMENT AND PLAN Neurology Myxedema coma (HCC) Assessment: H/O Hypothyroidism On Po Levothyroxine stopped taking as ran out of prescriptons PLAN: Endocrinology on board IV Levothyroxine Pulmonary Acute respiratory failure (HCC) Assessment: Intubated overnight PLAN: Lung protective ventilation, Wean as tolerated Infectious Disease Septicemia ([facility]) Assessment: Growing GNB in blood [...] 2229 -- 01/22/19 223 pneumatic compression stockings (dc,in) 01/22/191814 vte non-pharmacologic prophylaxis - none indicated (dc,in) 01/22/191814 activity - mobilize patient ([place], [place]) VTE Prophylaxis: VTE prophylaxis appropriate Plan of care discussed with: Family/Significant Other: and RN SIGNATURE: Dalton Chambers MD PATIENT NAME: Jorge Covington DATE: January 23, 2019 TIME: 12:02 PM PAGER/CONTACT #: [phone] ICU STAFF Note of Personal Involvement in [...] NON-VIOLENT PATIENT NAME: Jorge Covington PATIENT LOCATION: [place] [address]/[facility] -1 The patient demonstrates [...] January 23, 2019 TIME: 12:55 PM JAZZY Cuello DO 01/24/2019 9:42 AM Signed INTERNAL [...] T3 T4 on iv synthroid hypercapnea Suspect rudy/ohs uti cultures pending GNB septicemia on rocephin [...] HOURS 01/22/192228 -- 01/22/192229 pneumatic compression stockings (dc,oh) 01/22/191814 vte non-pharmacologic prophylaxis - none indicated (dc,in) 01/22/191814 activity - mobilize patient (dc,in) VTE Prophylaxis: VTE prophylaxis appropriate SIGNATURE: Shirley Romo DO PATIENT NAME: Jorge Covington DATE: January 24, 2019 TIME: 9:38 AM PAGER/CONTACT #: [phone] Annie Hare, CUAU[place]OC 01/24/2019 11:48 AM Addendum PHYSICAL THERAPY MISSED VISIT SERVICE DATE: 01/24/2019 SERVICE TIME: 1023 to 1023 ROOM: [place] [address] Attempted Evaluation. Patient not seen due to [...] Units SUBCUTANEOUS q 12 H Gayatri E (Finisher Map And Chart) Sly 5,000 Units at 01/24/19 0957 - cefTRIAXone 1 g in D5W 100 mL MB+ (ROCEPHIN) 1 g INTRAVENOUS q 24 H Gayatri E (Finisher Map And Chart) Sly 200 mL/hr at 01/24/19 0955 1 g at 01/24/19 0955 - propofol infusion (DIPRIVAN) 5-60 mcg/kg/min INTRAVENOUS CONTINUOUS Gayatri E (Finisher Map And Chart) Sly CURRENT ALLERGIES: Allergies As of Date: [...] pathology data. Justin Davila MD Staff, Respiratory [place] [facility] Pager #[phone] SUBJECTIVE CHIEF COMPLAINT: Respiratory failure INTERVAL HPI:Jorge [...] 24, 2019 TIME: 11:06 AM PAGER/CONTACT #: [phone] RT Bonnie, [employer] 01/24/2019 11:14 AM Signed Radiology Service Progress [...] the A/P section below. Please refer to [facility] for list of inpatient medications. VITAL [...] Is Patient Clinically Ready to Transfer to [facility] or SDU?: No Discharge Planning: To [...] the A/P section below. Please refer to [facility] for list of inpatient medications. VITAL SIGNS: [...] Is Patient Clinically Ready to Transfer to [facility] or SDU?: No Discharge Planning: To be determined ASSESSMENT AND PLAN Active Hospital Problems as of 01/24/2019 Noted - Resolved Neurology Myxedema coma ([facility]) 01/23/2019 - Present Current Assessment AND Plan Assessment: H/O Hypothyroidism On Po Levothyroxine stopped taking as ran out of prescriptons PLAN: Endocrinology on board IV Levothyroxine Daily thyroid studies Pulmonary COPD (chronic obstructive pulmonary disease) ([facility]) 06/08/2018 - Present Acute respiratory failure ([facility]) 01/22/2019 - Present Current Assessment [...] HOURS 01/22/192228 -- 01/22/192229 pneumatic compression stockings (dc,oh) 01/22/191814 vte non-pharmacologic prophylaxis - none indicated (dc,oh) 01/22/191814 activity - mobilize patient (dc,in) VTE Prophylaxis: VTE prophylaxis appropriate Plan of care discussed with: Provider, RN, Patient SIGNATURE: Camila Rizvi MD PATIENT NAME: Jorge Covington DATE: January 24, 2019 TIME: 11:40 AM PAGER/CONTACT #: [phone] ICU STAFF PHYSICIAN NOTE OF PERSONAL INVOLVEMENT [...] DATE: 01/24/2019 TIME: 3:41 PM Previous Version AMANDA MARTI SIMEON 01/24/2019 12:09 PM Signed CARE MANAGEMENT: ASSESSMENT AND DISCHARGE PLAN SERVICE DATE: 01/24/2019 SERVICE TIME: 11:45 am PRIMARY CARE PHYSICIAN: Brian Cardona MD - confirmed with pt's spouse [...] Current Advance Directive: Health Care 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 No SOCIAL: Living Arrangement: Home Lives With: Spouse Financial Resources: Disabled Primary Contact: Extended Emergency Contact Information Primary Emergency Contact: Dasia Covington Address: [address] [place] [address] Mobile Relation: Spouse Supportive: Yes Other Important [...] 0 I feel financially burdened by my zgq-oz-tzwhae expenses for my prescription medication: Disagree completely [...] indicated POTENTIAL TRANSITION PLANS Home Home Care Detention Facility/Intermediate Care Facility Pt is sedated and [...] spouse requested OZ call JAZZY Ewing at [phone] to see which agency she works for [...] 24, 2019 TIME: 11:59 AM PAGER/CONTACT #: [phone], LD 01/24/2019 12:22 PM [...] kg ( (more content not included)... Normal [facility] Mycoplasma IgM ABon 01-23-20 19 M. pneumo IgM, Qual Negative Normal Negative [facility] Comment on above: Result Comment: No s ignificant amount of IgM antibodies to M. pneumoniae detected. A nonreactive result indicates no current/previous infection. Performed By: #### N TBNP #### [facility] [address] [place] [address] Mycoplasma IgM AB 0.45 OD Ratio Normal [facility] Comment on above: Result Comment: Inde x Values/OD Ratios are interpreted as follows: Negative: < or = 0.90 Equivocal: 0.91 to 1.09 Positive: > or = 1.10 The magnitude of the measured result above the cutoff is not indicative of the total amount of antibody present and cannot be correlated to IFA titers. Performed By: #### N TBNP #### [facility] [address] [place] [address] NT Pro BNPon 01-22-2019 PRO B Natr Peptide 32 pg/mL Normal <125 [facility] Comment on above: Performed By: #### N TBNP #### [facility] [address] [place] [address] NURSING PROGon 01-22-2019 NURSING PROG HNO ID: [id number] Author: Marjorie (Rn) JAZZY Zavaleta Service: Nursing Author Type: Registered Nurse Type: Nursing Progress Note Filed: 01/22/2019 9:15 PM Note Text: Nursing Progress Note Patient Name: Jorge Covington Patient [facility] -[facility] Daily Note to ICU 1 c monitor and bipap per cart from ER This note was completed by: Marjorie Zavaleta RN [facility] PLAN OF CAREon 01-22-2019 PLAN OF CARE HNO ID: [id number] Author: Justen Guerrero (Pharmacist) Service: Pharmacy Author Type: Pharmacist Type: Plan of Care Filed: 01/22/2019 6:35 PM Note Text: MEDICATION HISTORY Patient Name:.Jorge Covington : 1955 Source of history:Family: Reliability of source: Appears reliable, clearly identified: Medication name, Medication dose, Medication route, Medication frequency and Timing of last dose, Pharmacy records: [facility] Pharmacy and Prescription bottles Medication Nonadherence [...] Itching, Other: See Comments Sneezing Preferred Pharmacy: [facility] Pharmacy Current [employer] Medications: Prior to Admission medications as of [...] PHARMACIST January 22, 2019 6:31 PM Normal [facility] TSHon 01-22-2019 TSH Qn 92.240 uU/mL High 0.400-5.500 [facility] Comment on above: Performed By: #### T SH #### [facility] [address] [facility] [phone] Urinalysison 01-22-2019 Bilirubin, Urine Small Critically abnormal Negative [facility] Comment on above: Result Comment: Sugg est correlation with clinical findings and serum bilirubin if clinically indicated. Performed By: #### U A UAMIC ####[facility] [address] [phone] Clarity (U) Slightly Hazy Critically abnormal Clear [facility] Comment on above: Performed By: #### U A, UAMIC ####[facility] [address] [phone] Color (U) Yellow Normal Yellow [facility] Comment on above: Performed By: #### U A, UAMIC ####[facility] [address] [place] [address] Glucose Ql (U) Negative Normal Negative [facility] Comment on above: Performed By: #### U A, UAMIC ####[facility] [address] [place] [address] Hemoglobin/Blood,Ur Trace Critically abnormal Negative [facility] Comment on above: Performed By: #### U A, UAMIC ####[facility] [address] [place] [address] Ketones Ql (U) Negative Normal Negative [facility] Comment on above: Performed By: #### U A, UAMIC ####[facility] [address] [place] [address] Leukest Negative Normal Negative [facility] Comment on above: Performed By: #### U A, UAMIC ####[place] [address] Nitrite Ql (U) Negative Normal Negative [facility] Comment on above: Performed By: #### U A, UAMIC ####[facility] [address] [place] [address] pH (Bld) 6.0 Normal 5.0-8.0 [facility] Comment on above: Performed By: #### U A, UAMIC ####[place] [address] Protein (U) [Mass/Vol] Negative Normal Negative [facility] Comment on above: Performed By: #### U A, UAMIC ####[facility] [address] [place] [address] Specific [place], Ur >1.029 High 1.001-1.029 [facility] Comment on above: Performed By: #### U A, UAMIC ####[place] [address] Urobilinogen Qn (U) 0.2 Normal 0.2-1.0 [facility] Comment on above: Performed By: #### U A, UAMIC ####[facility] [address] [place] [address] Urine Microscopic (FOR LAB U SE ONLY)on 01-22-2019 Bacteria LM.HPF (Urine sed) [#/Area] Many Critically abnormal 0 [facility] Comment on above: Performed By: #### U A, UAMIC ####[facility] [address] [place] [address] Cast SEE COMMENT Normal 0 [facility] Comment on above: Result Comment: 0 Performed By: #### U A, UAMIC ####[facility] [address] [place] [address] Epithelial cells LM.HPF (Urine sed) [#/Area] SEE COMMENT Normal [facility] Comment on above: Result Comment: 0-5 Squamous Epithelial Cells Performed By: #### U A, UAMIC ####[facility] [address] [place] [address] RBC (U) [#/Vol] 3-5 Critically abnormal 0-3 [facility] Comment on above: Performed By: #### U A, UAMIC ####[facility] [address] [place] [address] WBC (Bld) [#/Vol] 0-5 Normal 0-5 [facility] Comment on above: Performed By: #### U A, UAMIC ####[facility] [address] [place] [address] XR CHEST 1V FRONTAL PORTon 1 XR [...] is recommended in 4-6 weeks, indeterminate appearance. Dental Financial Coordinator: PSC[employer] Transcribe Date/Time: Jan 22 2019 12:53P Dictated by : GARRETT VIGIL MD This examination was interpreted and the report reviewed and electronically signed by: GARRETT VIGIL MD on Jan 22 2019 12:56PM EST [id number] N [facility] 06-22-2018 CNOV Office Visit (AKURFL ) JORGE COVINGTON ([id number]) 1955 M Date Time Provider Department 06/22/18 2:00 PM PRAVIN PEDRAZA During your visit today, we recorded the following information about you: Weight Height 93.4 kg 1.676 m Pravin Pedraza DO, MBA 06/22/2018 2:57 PM Signed ?? [facility] [place] [facility] LOCATION: [address] [place] [address] NEW PATIENT HISTORY AND PHYSICAL EXAM PATIENT INFO: Jorge Covington 62 year old REFERRING M.D.: Self PCP: Brian Cardona MD Consultation requested by Self and my final recommendations will be communicated back to the requesting physician by way of shared medical record or letter via [place] mail. Chief Complaint: urinary retention HPI Lamont is here for retention of urine Benson in place Complex hx, no records Here from long term Failed voiding trial Needs full evaluation 1-Duration: [...] 06/13/2018 7.0 4.5 - 8.0 Final Specific [place], Ur Date Value Ref Range Status 06/13/2018 [...] Pravin Pedraza DO MBA Letter to: Brian Cardona MD Referring Provider: SELF [200] Allergies As of Date: 06/22/2018 Noted Allergy Reaction DUST 06/02/2018 14 - Other: See Comments Comments: sneezing MOLD SPORES 06/02/2018 9 - Itching 14 - Other: See Comments Comments: Sneezing Date Reviewed: 06/22/2018 Reviewed by: Sharmila Jang RESTAURANT AND BAR MANAGER - Fully Assessed Reason for Visit: Prostate [...] Status:Closed by PRAVIN PEDRAZA on 06/22/18 Normal [facility] PROGRESSon 06-22-2018 Protein mass conc HNO ID: [id number] Author: Pravin Pedraza Service: ? Author Type: Physician Type: Progress Notes Filed: 06/22/2018 2:57 PM Note Text: ?? [facility] [place] [facility] LOCATION: [address] [place] [address] NEW PATIENT HISTORY AND PHYSICAL EXAM PATIENT INFO: Jorge Covington 62 year old REFERRING M.D.: Self PCP: Brian Cardona MD Consultation requested by Self and my final recommendations will be communicated back to the requesting physician by way of shared medical record or letter via [place] mail. Chief Complaint: urinary retention HPI Lamont is here for retention of urine Benson in place Complex hx, no records Here from long term Failed voiding trial Needs full evaluation 1-Duration: [...] 06/13/2018 7.0 4.5 - 8.0 Final Specific [place], Ur Date Value Ref Range Status 06/13/2018 [...] Pravin Pedraza DO MBA Letter to: Brian Cardona MD Normal [facility] Bacteria identified Anaer cx Nom (Unsp spec) Anaerobic Culture Clostridium perfringens [facility] Work Phone: Bacteria identified Cx Nom ( Wound) Wound Culture Escherichia coli [facility] Work Phone: Wound Culture Staphylococcus aureus [facility] Work Phone: Gram stain for investigation of transfusion reaction Microscopic observation Gram stain Nom (Unsp spec) [facility] Work Phone: Vital Signs Date Time Vital Sign Value Performing Clinician Faci lity 01-20-2025 15:58-0400 Inhaled oxygen flow rate 2 L/min Dr. Brian Cardona MD [facility] 01-20-2025 12:37-0400 SaO2% (BldA) [Mass fraction] 94 % Dr. Brian Cardona MD [facility] 01-20-2025 11:51-0400 Body temperature 97.5 [degF] Dr. Brian Cardona MD [facility] 01-20-2025 11:51-0400 Diastolic blood pressure 67 mm[Hg] Dr. Brian Cardona MD [facility] 01-20-2025 11:51-0400 Heart rate 87 /min Dr. Brian Cardona MD [facility] 01-20-2025 11:51-0400 Respiratory rate 18 /min Dr. Brian Cardona MD [facility] 01-20-2025 11:51-0400 Systolic blood pressure 121 mm[Hg] Dr. Brian Cardona MD [facility] 01-17-2025 16:40-0400 Body height 167.[address] Brian Cardona MD [facility] 01-17-2025 16:40-0400 Body weight 104.[address] Brian Cardona MD [facility] 01-17-2025 13:21-0400 Body mass index (BMI) [Ratio] 37.3 kg/m2 Dr. Brian Cardona MD [facility] 12-26-2024 15:13-0400 Body temperature 97.8 [degF] Dr. Brian Cardona MD [facility] 12-26-2024 15:13-0400 Diastolic blood pressure 89 mm[Hg] Dr. Brian Cardona MD [facility] 12-26-2024 15:13-0400 Heart rate 100 /min Dr. Brain Cardona MD [facility] 12-26-2024 15:13-0400 Respiratory rate 16 /min Dr. Brian Cardona MD [facility] 12-26-2024 15:13-0400 Systolic blood pressure 159 mm[Hg] Dr. Brian Cardona MD [facility] 11-15-2024 09:25-0400 Body height 167.64 cm Cristy Bearden PA Work Phone: [facility] 11-14-2024 15:33-0400 Body temperature 97.4 [degF] Cristy Bearden PA Work Phone: [facility] 11-14-2024 15:33-0400 Diastolic blood pressure 97 mm[Hg] Cristy Bearden PA Work Phone: [facility] 11-14-2024 15:33-0400 Heart rate 81 /min Cristy Bearden PA Work Phone: [facility] 11-14-2024 15:33-0400 Respiratory rate 16 /min Cristy Bearden PA Work Phone: [facility] 11-14-2024 15:33-0400 Systolic blood pressure 147 mm[Hg] Cristy Bearedn PA Work Phone: [facility] 10-03-2024 16:06-0400 Body height 167.[address] Brian Cardona MD [facility] 10-03-2024 16:06-0400 Body weight 100.[address] Brian Cardona MD [facility] 10-03-2024 16:03-0400 Body temperature 97.3 [degF] Dr. Brian Cardona MD [facility] 10-03-2024 16:03-0400 Diastolic blood pressure 84 mm[Hg] Dr. Brian Cardona MD [facility] 10-03-2024 16:03-0400 Heart rate 86 /min Dr. Brian Cardona MD [facility] 10-03-2024 16:03-0400 Respiratory rate 18 /min Dr. Brian Cardona MD [facility] 10-03-2024 16:03-0400 Systolic blood pressure 127 mm[Hg] Dr. Brian Cardona MD [facility] 08-29-2024 16:27-0400 Body height 167.[address] Brian Cardona MD [facility] 08-29-2024 16:27-0400 Body weight 100.[address] Brian Cardona MD [facility] 08-29-2024 14:52-0400 Body mass index (BMI) [Ratio] 35.5 kg/m2 Dr. Brian Cardona MD [facility] 08-29-2024 14:52-0400 Body temperature 97.7 [degF] Dr. Brian Cardona MD [facility] 08-29-2024 14:52-0400 Diastolic blood pressure 116 mm[Hg] Dr. Brian Cardona MD [facility] 08-29-2024 14:52-0400 Heart rate 78 /min Dr. Brian Cardona MD [facility] 08-29-2024 14:52-0400 Respiratory rate 18 /min Dr. Brian Cardona MD [facility] 08-29-2024 14:52-0400 Systolic blood pressure 192 mm[Hg] Dr. Brian Cardona MD [facility] 08-07-2024 21:07-0400 Diastolic blood pressure 74 mm[Hg] Dr. Brian Cardona MD [facility] 08-07-2024 21:07-0400 Heart rate 80 /min Dr. Brian Cardona MD [facility] 08-07-2024 21:07-0400 Respiratory rate 18 /min Dr. Brian Cardona MD [facility] 08-07-2024 21:07-0400 SaO2% (BldA) [Mass fraction] 96 % Dr. Brian Cardona MD [facility] 08-07-2024 21:07-0400 Systolic blood pressure 140 mm[Hg] Dr. Brian Cardona MD [facility] 08-07-2024 20:56-0400 Body temperature 97.9 [degF] Dr. Brian Cardona MD [facility] 08-07-2024 17:50-0400 Body height 167.[address] Brian Cardona MD [facility] 08-07-2024 17:50-0400 Body mass index (BMI) [Ratio] 35.9 kg/m2 Dr. Brian Cardona MD [facility] 08-07-2024 17:50-0400 Body weight 100.[address] Brian Cardona MD [facility] 08-02-2024 17:11-0400 Diastolic blood pressure 73 mm[Hg] Cristy Bearden PA Work Phone: [facility] 08-02-2024 17:11-0400 SaO2% (BldA) [Mass fraction] 94 % Cristy Bearden PA Work Phone: [facility] 08-02-2024 17:11-0400 Systolic blood pressure 120 mm[Hg] Cristy Bearden PA Work Phone: [facility] 08-02-2024 16:00-0400 Heart rate 71 /min Cristy Bearden PA Work Phone: [facility] 08-02-2024 16:00-0400 Respiratory rate 15 /min Cristy Bearden PA Work Phone: [facility] 08-02-2024 14:25-0400 Body temperature 97.9 [degF] Cristy Bearden PA Work Phone: [facility] 08-02-2024 10:56-0400 Inhaled oxygen flow rate 2 L/min Cristy Bearden PA Work Phone: [facility] 08-02-2024 10:52-0400 Body height 167.64 cm Cristy Bearden PA Work Phone: [facility] 08-02-2024 10:52-0400 Body mass index (BMI) [Ratio] 37 kg/m2 Cristy Bearden PA Work Phone: [facility] 08-02-2024 10:52-0400 Body weight 104 kg Cristy Bearden PA Work Phone: [facility] 08-01-2024 16:24-0400 Body weight 97.4 kg Cristy Bearden PA Work Phone: [facility] 08-01-2024 14:04-0400 Body temperature 98.2 [degF] Cristy Bearden PA Work Phone: [facility] 08-01-2024 14:04-0400 Diastolic blood pressure 79 mm[Hg] Cristy Bearden PA Work Phone: [facility] 08-01-2024 14:04-0400 Heart rate 65 /min Cristy Bearden PA Work Phone: [facility] 08-01-2024 14:04-0400 Respiratory rate 16 /min Cristy Bearden PA Work Phone: [facility] 08-01-2024 14:04-0400 SaO2% (BldA) [Mass fraction] 97 % Cristy Bearden PA Work Phone: [facility] 08-01-2024 14:04-0400 Systolic blood pressure 140 mm[Hg] Cristy Bearden PA Work Phone: [facility] 08-01-2024 03:26-0400 Body mass index (BMI) [Ratio] 34.4 kg/m2 Crisyt Bearden PA Work Phone: [facility] 07-25-2024 10:49-0400 Body mass index (BMI) [Ratio] 35.5 kg/m2 Cristy Bearden PA Work Phone: [facility] 07-25-2024 10:49-0400 Body temperature 97.3 [degF] Cristy Bearden PA Work Phone: [facility] 07-25-2024 10:49-0400 Diastolic blood pressure 70 mm[Hg] Cristy Bearden PA Work Phone: [facility] 07-25-2024 10:49-0400 Heart rate 79 /min Cristy Bearden PA Work Phone: [facility] 07-25-2024 10:49-0400 Respiratory rate 18 /min Cristy Bearden PA Work Phone: [facility] 07-25-2024 10:49-0400 Systolic blood pressure 124 mm[Hg] Cristy Bearden PA Work Phone: [facility] 06-28-2024 00:51-0400 Body weight 99.3 kg Cristy Bearden PA Work Phone: [facility] 06-27-2024 15:07-0400 Body mass index (BMI) [Ratio] 35.5 kg/m2 Cristy Bearden PA Work Phone: [facility] 06-27-2024 15:07-0400 Body temperature 98.8 [degF] Cristy Bearden PA Work Phone: [facility] 06-27-2024 15:07-0400 Diastolic blood pressure 77 mm[Hg] Cristy Bearden PA Work Phone: [facility] 06-27-2024 15:07-0400 Heart rate 91 /min Cristy Bearden PA Work Phone: [facility] 06-27-2024 15:07-0400 Respiratory rate 16 /min Cristy Bearden PA Work Phone: [facility] 06-27-2024 15:07-0400 Systolic blood pressure 137 mm[Hg] Cristy Bearden PA Work Phone: [facility] 06-12-2024 14:18-0400 Diastolic blood pressure 70 mm[Hg] Cristy Bearden PA Work Phone: [facility] 06-12-2024 14:18-0400 Heart rate 74 /min Cristy Bearden PA Work Phone: [facility] 06-12-2024 14:18-0400 Respiratory rate 16 /min Cristy Bearden PA Work Phone: [facility] 06-12-2024 14:18-0400 SaO2% (BldA) [Mass fraction] 94 % Cristy Bearden PA Work Phone: [facility] 06-12-2024 14:18-0400 Systolic blood pressure 121 mm[Hg] Cristy Bearden PA Work Phone: [facility] 06-12-2024 10:21-0400 Body temperature 98.1 [degF] Cristy Bearden PA Work Phone: [facility] 06-10-2024 11:09-0400 Body height 167.64 cm Cristy Bearden PA Work Phone: [facility] 06-10-2024 11:09-0400 Body weight 96.75 kg Cristy Bearden PA Work Phone: [facility] 06-09-2024 13:38-0400 Inhaled oxygen flow rate 3 L/min Cristy Bearden PA Work Phone: [facility] 06-09-2024 13:29-0400 Body mass index (BMI) [Ratio] 34.4 kg/m2 Cristy Bearden PA Work Phone: [facility] 06-09-2024 12:51-0400 Body temperature 98.8 [degF] Cristy Bearden PA Work Phone: [facility] 06-09-2024 12:51-0400 Diastolic blood pressure 74 mm[Hg] Cristy Bearden PA Work Phone: [facility] 06-09-2024 12:51-0400 Heart rate 104 /min Cristy Bearden PA Work Phone: [facility] 06-09-2024 12:51-0400 Respiratory rate 18 /min Cristy Bearden PA Work Phone: [facility] 06-09-2024 12:51-0400 SaO2% (BldA) [Mass fraction] 96 % Cristy Bearden PA Work Phone: [facility] 06-09-2024 12:51-0400 Systolic blood pressure 110 mm[Hg] Cristy Bearden PA Work Phone: [facility] 06-09-2024 11:00-0400 Inhaled oxygen flow rate 2 L/min Cristy Bearden PA Work Phone: [facility] 06-09-2024 09:00-0400 Body height 167.64 cm Cristy Bearden PA Work Phone: [facility] 06-09-2024 09:00-0400 Body mass index (BMI) [Ratio] 35.3 kg/m2 Cristy Bearden PA Work Phone: [facility] 06-09-2024 09:00-0400 Body weight 99.3 kg Cristy Bearden PA Work Phone: [facility] 05-30-2024 16:12-0500 Body weight 99.3 kg Cristy Bearden PA Work Phone: [facility] 05-30-2024 15:13-0500 Body mass index (BMI) [Ratio] 35.5 kg/m2 Cristy Bearden PA Work Phone: [facility] 05-30-2024 15:13-0500 Body temperature 98.1 [degF] Cristy Bearden PA Work Phone: [facility] 05-30-2024 15:13-0500 Diastolic blood pressure 79 mm[Hg] Cristy Bearden PA Work Phone: [facility] 05-30-2024 15:13-0500 Heart rate 90 /min Cristy Bearden PA Work Phone: [facility] 05-30-2024 15:13-0500 Respiratory rate 16 /min Cristy Bearden PA Work Phone: [facility] 05-30-2024 15:13-0500 Systolic blood pressure 117 mm[Hg] Cristy Bearden PA Work Phone: [facility] 05-02-2024 15:21-0500 Body weight 99.3 kg Cristy Bearden PA Work Phone: [facility] 05-02-2024 14:54-0500 Body mass index (BMI) [Ratio] 35.5 kg/m2 Cristy Bearden PA Work Phone: [facility] 05-02-2024 14:54-0500 Body temperature 98.5 [degF] Cristy Bearden PA Work Phone: [facility] 05-02-2024 14:54-0500 Diastolic blood pressure 59 mm[Hg] Cristy Bearden PA Work Phone: [facility] 05-02-2024 14:54-0500 Heart rate 89 /min Cristy Bearden PA Work Phone: [facility] 05-02-2024 14:54-0500 Respiratory rate 18 /min Cristy Bearden PA Work Phone: [facility] 05-02-2024 14:54-0500 Systolic blood pressure 110 mm[Hg] Cristy Bearden PA Work Phone: [facility] 04-04-2024 15:44-0500 Body mass index (BMI) [Ratio] 35.5 kg/m2 Cristy Bearden PA Work Phone: [facility] 04-04-2024 15:44-0500 Respiratory rate 16 /min Cristy Bearden PA Work Phone: [facility] 03-30-2024 00:12-0500 Body temperature 96.6 [degF] Cristy Bearden PA Work Phone: [facility] 03-30-2024 00:12-0500 Body weight 99.79 kg Cristy Bearden PA Work Phone: [facility] 03-30-2024 00:12-0500 Diastolic blood pressure 105 mm[Hg] Cristy Bearden PA Work Phone: [facility] 03-30-2024 00:12-0500 Heart rate 90 /min Cristy Bearden PA Work Phone: [facility] 03-30-2024 00:12-0500 Systolic blood pressure 154 mm[Hg] Cristy Bearden PA Work Phone: [facility] 03-21-2024 15:42-0500 Body mass index (BMI) [Ratio] 35.5 kg/m2 Cristy Bearden PA Work Phone: [facility] 03-21-2024 15:42-0500 Body temperature 98.8 [degF] Cristy Bearden PA Work Phone: [facility] 03-21-2024 15:42-0500 Diastolic blood pressure 84 mm[Hg] Cristy Bearden PA Work Phone: [facility] 03-21-2024 15:42-0500 Heart rate 92 /min Cristy Bearden PA Work Phone: [facility] 03-21-2024 15:42-0500 Respiratory rate 18 /min Cristy Bearden PA Work Phone: [facility] 03-21-2024 15:42-0500 Systolic blood pressure 157 mm[Hg] Cristy Bearden PA Work Phone: [facility] 02-28-2024 00:17-0500 Body weight 99.79 kg Cristy Bearden PA Work Phone: [facility] 02-24-2024 15:06-0500 Body mass index (BMI) [Ratio] 35.5 kg/m2 Cristy Bearden PA Work Phone: [facility] 02-24-2024 15:06-0500 Body temperature 98.1 [degF] Cristy Bearden PA Work Phone: [facility] 02-24-2024 15:06-0500 Diastolic blood pressure 86 mm[Hg] Cristy Bearden PA Work Phone: [facility] 02-24-2024 15:06-0500 Heart rate 84 /min Cristy Bearden PA Work Phone: [facility] 02-24-2024 15:06-0500 Respiratory rate 16 /min Cristy Bearden PA Work Phone: [facility] 02-24-2024 15:06-0500 Systolic blood pressure 142 mm[Hg] Cristy GONZALEZ Work Phone: [facility] 01-29-2024 00:20-0400 Body weight 99.79 kg Cristy GONZALEZ Work Phone: [facility] 01-22-2024 09:34-0400 Body height 167.6 cm Rikki Casas MD Work Phone: [facility] 01-22-2024 09:34-0400 Body mass index (BMI) [Ratio] 29.05 kg/m2 Rikki Casas MD Work Phone: [facility] 01-22-2024 09:34-0400 Body weight 81.65 kg Rikki Casas MD Work Phone: [facility] 12-11-2023 14:35-0400 Diastolic blood pressure 73 mm[Hg] Rikki Casas MD Work Phone: [facility] [employer] 12-11-2023 14:35-0400 Heart rate 67 /min Rikki Casas MD Work Phone: [facility] [employer] 12-11-2023 14:35-0400 SaO2% (BldA) [Mass fraction] 99 % Rikki Casas MD Work Phone: [facility] [employer] 12-11-2023 14:35-0400 Systolic blood pressure 105 mm[Hg] Rikki Casas MD Work Phone: [facility] [employer] 12-11-2023 14:00-0400 Body temperature 97.5 [degF] Rikki Casas MD Work Phone: [facility] [employer] 12-11-2023 14:00-0400 Respiratory rate 16 /min Rikki Casas MD Work Phone: [facility] 07-22-2023 13:04-0400 Body mass index (BMI) [Ratio] 35.5 kg/m2 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 Kemi Rubio NP Work Phone: [facility] 07-22-2023 13:04-0400 Body temperature 96.6 [degF] 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 Kemi Ramiro RESEARCH & ANALYTICS MANAGER Work Phone: [facility] 07-22-2023 13:04-0400 Diastolic blood pressure 105 mm[Hg] 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 Kemi Ramiro RESEARCH & ANALYTICS MANAGER Work Phone: [facility] 07-22-2023 13:04-0400 Heart rate 90 /min 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 Kemi Ramiro RESEARCH & ANALYTICS MANAGER Work Phone: [facility] 07-22-2023 13:04-0400 Respiratory rate 18 /min 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 Kemi Ramiro RESEARCH & ANALYTICS MANAGER Work Phone: [facility] 07-22-2023 13:04-0400 Systolic blood pressure 154 mm[Hg] 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 Kemi Ramiro RESEARCH & ANALYTICS MANAGER Work Phone: [facility] 07-02-2023 16:59-0400 Body height 167.64 cm 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 Kemi Ramiro RESEARCH & ANALYTICS MANAGER Work Phone: [facility] 07-02-2023 16:59-0400 Body mass index (BMI) [Ratio] 26.6 kg/m2 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 Kemi Ramiro RESEARCH & ANALYTICS MANAGER Work Phone: [facility] 07-02-2023 16:59-0400 Body temperature 98.1 [degF] 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 Kemi Ramiro RESEARCH & ANALYTICS MANAGER Work Phone: [facility] 07-02-2023 16:59-0400 Body weight 74.84 kg 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 Kemi Ramiro RESEARCH & ANALYTICS MANAGER Work Phone: [facility] 07-02-2023 16:59-0400 Diastolic blood pressure 72 mm[Hg] 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 Kemi Ramiro RESEARCH & ANALYTICS MANAGER Work Phone: [facility] 07-02-2023 16:59-0400 Heart rate 84 /min 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 Kemi Ramiro RESEARCH & ANALYTICS MANAGER Work Phone: [facility] 07-02-2023 16:59-0400 Respiratory rate 14 /min 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 Kemi Ramiro RESEARCH & ANALYTICS MANAGER Work Phone: [facility] 07-02-2023 16:59-0400 SaO2% (BldA) [Mass fraction] 94 % 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 Kemi Ramiro RESEARCH & ANALYTICS MANAGER Work Phone: [facility] 07-02-2023 16:59-0400 Systolic blood pressure 114 mm[Hg] 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 Kemi Ramiro RESEARCH & ANALYTICS MANAGER Work Phone: [facility] 06-29-2023 00:27-0400 Body weight 99.79 kg 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 Kemi Ramiro RESEARCH & ANALYTICS MANAGER Work Phone: [facility] 06-15-2023 09:34-0400 Body mass index (BMI) [Ratio] 35.5 kg/m2 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 Kemi Ramiro RESEARCH & ANALYTICS MANAGER Work Phone: [facility] 06-15-2023 09:34-0400 Body temperature 97.4 [degF] 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 Kemi Ramiro RESEARCH & ANALYTICS MANAGER Work Phone: [facility] 06-15-2023 09:34-0400 Diastolic blood pressure 89 mm[Hg] 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 Kemi Ramiro RESEARCH & ANALYTICS MANAGER Work Phone: [facility] 06-15-2023 09:34-0400 Heart rate 85 /min 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 Kemi Ramiro RESEARCH & ANALYTICS MANAGER Work Phone: [facility] 06-15-2023 09:34-0400 Respiratory rate 16 /min 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 Kemi Ramiro RESEARCH & ANALYTICS MANAGER Work Phone: [facility] 06-15-2023 09:34-0400 Systolic blood pressure 144 mm[Hg] 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 Kemi Ramiro RESEARCH & ANALYTICS MANAGER Work Phone: [facility] 05-29-2023 00:38-0500 Body weight 99.79 kg 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 Kemi Ramiro RESEARCH & ANALYTICS MANAGER Work Phone: [facility] 05-18-2023 09:04-0500 Body mass index (BMI) [Ratio] 35.5 kg/m2 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 Kemi Ramiro RESEARCH & ANALYTICS MANAGER Work Phone: [facility] 05-18-2023 09:04-0500 Body temperature 96.2 [degF] 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 Kemi Ramiro RESEARCH & ANALYTICS MANAGER Work Phone: [facility] 05-18-2023 09:04-0500 Diastolic blood pressure 96 mm[Hg] 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 Kemi Ramiro RESEARCH & ANALYTICS MANAGER Work Phone: [facility] 05-18-2023 09:04-0500 Heart rate 91 /min 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 Kemi Ramiro RESEARCH & ANALYTICS MANAGER Work Phone: [facility] 05-18-2023 09:04-0500 Respiratory rate 16 /min 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 Kemi Ramiro RESEARCH & ANALYTICS MANAGER Work Phone: [facility] 05-18-2023 09:04-0500 Systolic blood pressure 147 mm[Hg] 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 Kemi Ramiro RESEARCH & ANALYTICS MANAGER Work Phone: [facility] 04-30-2023 00:55-0500 Body weight 99.79 kg 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 Kemi Ramiro RESEARCH & ANALYTICS MANAGER Work Phone: [facility] 04-21-2023 13:42-0500 Body mass index (BMI) [Ratio] 35.5 kg/m2 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 Kemi Ramiro RESEARCH & ANALYTICS MANAGER Work Phone: [facility] 04-21-2023 13:42-0500 Body temperature 97.6 [degF] 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 Kemi Ramiro RESEARCH & ANALYTICS MANAGER Work Phone: [facility] 04-21-2023 13:42-0500 Diastolic blood pressure 92 mm[Hg] 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 Kemi Ramiro RESEARCH & ANALYTICS MANAGER Work Phone: [facility] 04-21-2023 13:42-0500 Heart rate 87 /min 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 Kemi Ramiro RESEARCH & ANALYTICS MANAGER Work Phone: [facility] 04-21-2023 13:42-0500 Respiratory rate 18 /min 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 Kemi Ramiro RESEARCH & ANALYTICS MANAGER Work Phone: [facility] 04-21-2023 13:42-0500 Systolic blood pressure 163 mm[Hg] 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 Kemi Ramiro RESEARCH & ANALYTICS MANAGER Work Phone: [facility] 03-30-2023 00:45-0500 Body weight 99.79 kg 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 Kemi Ramiro RESEARCH & ANALYTICS MANAGER Work Phone: [facility] 03-16-2023 08:57-0500 Body mass index (BMI) [Ratio] 35.5 kg/m2 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 Kemi Ramiro RESEARCH & ANALYTICS MANAGER Work Phone: [facility] 03-16-2023 08:57-0500 Body temperature 97.1 [degF] 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 Kemi Ramiro RESEARCH & ANALYTICS MANAGER Work Phone: [facility] 03-16-2023 08:57-0500 Diastolic blood pressure 74 mm[Hg] 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 Kemi Ramiro RESEARCH & ANALYTICS MANAGER Work Phone: [facility] 03-16-2023 08:57-0500 Heart rate 91 /min 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 Kemi Ramiro RESEARCH & ANALYTICS MANAGER Work Phone: [facility] 03-16-2023 08:57-0500 Respiratory rate 18 /min 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 Kemi Ramiro RESEARCH & ANALYTICS MANAGER Work Phone: [facility] 03-16-2023 08:57-0500 Systolic blood pressure 145 mm[Hg] 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 Kemi Ramiro RESEARCH & ANALYTICS MANAGER Work Phone: [facility] 02-27-2023 00:47-0500 Body weight 99.79 kg 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 Kemi Ramiro RESEARCH & ANALYTICS MANAGER Work Phone: [facility] 02-16-2023 08:54-0500 Body mass index (BMI) [Ratio] 35.5 kg/m2 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 Kemi Ramiro RESEARCH & ANALYTICS MANAGER Work Phone: [facility] 02-16-2023 08:54-0500 Body temperature 95.3 [degF] 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 Kemi Ramiro RESEARCH & ANALYTICS MANAGER Work Phone: [facility] 02-16-2023 08:54-0500 Diastolic blood pressure 81 mm[Hg] 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 Kemi Ramiro RESEARCH & ANALYTICS MANAGER Work Phone: [facility] 02-16-2023 08:54-0500 Heart rate 83 /min 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 Kemi Ramiro RESEARCH & ANALYTICS MANAGER Work Phone: [facility] 02-16-2023 08:54-0500 Respiratory rate 16 /min 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 Kemi Ramiro RESEARCH & ANALYTICS MANAGER Work Phone: [facility] 02-16-2023 08:54-0500 Systolic blood pressure 136 mm[Hg] 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 Kemi Ramiro RESEARCH & ANALYTICS MANAGER Work Phone: [facility] 01-28-2023 00:48-0400 Body weight 99.79 kg 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 Kemi Ramiro RESEARCH & ANALYTICS MANAGER Work Phone: [facility] 01-19-2023 08:17-0400 Body mass index (BMI) [Ratio] 35.5 kg/m2 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 Kemi Ramiro RESEARCH & ANALYTICS MANAGER Work Phone: [facility] 01-19-2023 08:17-0400 Body temperature 96.7 [degF] 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 Kemi Ramiro RESEARCH & ANALYTICS MANAGER Work Phone: [facility] 01-19-2023 08:17-0400 Diastolic blood pressure 64 mm[Hg] 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 Kemi Ramiro RESEARCH & ANALYTICS MANAGER Work Phone: [facility] 01-19-2023 08:17-0400 Heart rate 74 /min 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 Kemi Ramiro RESEARCH & ANALYTICS MANAGER Work Phone: [facility] 01-19-2023 08:17-0400 Respiratory rate 16 /min 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 Kemi Ramiro RESEARCH & ANALYTICS MANAGER Work Phone: [facility] 01-19-2023 08:17-0400 Systolic blood pressure 118 mm[Hg] 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 Kemi Ramiro RESEARCH & ANALYTICS MANAGER Work Phone: [facility] 12-28-2022 00:40-0400 Body weight 99.79 kg 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 Kemi Ramiro RESEARCH & ANALYTICS MANAGER Work Phone: [facility] 12-08-2022 08:52-0400 Body mass index (BMI) [Ratio] 35.5 kg/m2 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 Kemi Ramiro RESEARCH & ANALYTICS MANAGER Work Phone: [facility] 12-08-2022 08:52-0400 Body temperature 96.7 [degF] 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 Kemi Ramiro RESEARCH & ANALYTICS MANAGER Work Phone: [facility] 12-08-2022 08:52-0400 Diastolic blood pressure 67 mm[Hg] 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 Kemi Ramiro RESEARCH & ANALYTICS MANAGER Work Phone: [facility] 12-08-2022 08:52-0400 Heart rate 80 /min 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 Kemi Ramiro RESEARCH & ANALYTICS MANAGER Work Phone: [facility] 12-08-2022 08:52-0400 Respiratory rate 18 /min 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 Kemi Ramiro RESEARCH & ANALYTICS MANAGER Work Phone: [facility] 12-08-2022 08:52-0400 Systolic blood pressure 133 mm[Hg] 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 Kemi Ramiro RESEARCH & ANALYTICS MANAGER Work Phone: [facility] 11-28-2022 00:28-0400 Body weight 99.79 kg 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 Kemi Ramiro RESEARCH & ANALYTICS MANAGER Work Phone: [facility] 11-24-2022 15:31-0400 Body temperature 98.7 [degF] 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 Kemi Ramiro RESEARCH & ANALYTICS MANAGER Work Phone: [facility] 11-24-2022 15:31-0400 Diastolic blood pressure 66 mm[Hg] 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 Kemi Ramiro RESEARCH & ANALYTICS MANAGER Work Phone: [facility] 11-24-2022 15:31-0400 Heart rate 61 /min 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 Kemi Ramiro RESEARCH & ANALYTICS MANAGER Work Phone: [facility] 11-24-2022 15:31-0400 Respiratory rate 18 /min 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 Kemi Ramiro RESEARCH & ANALYTICS MANAGER Work Phone: [facility] 11-24-2022 15:31-0400 SaO2% (BldA) [Mass fraction] 97 % 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 Kemi Ramiro RESEARCH & ANALYTICS MANAGER Work Phone: [facility] 11-24-2022 15:31-0400 Systolic blood pressure 133 mm[Hg] 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 Kemi Ramiro RESEARCH & ANALYTICS MANAGER Work Phone: [facility] 11-21-2022 16:22-0400 Body height 167.64 cm 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 Kemi Ramiro RESEARCH & ANALYTICS MANAGER Work Phone: [facility] 11-21-2022 16:22-0400 Body mass index (BMI) [Ratio] 24.2 kg/m2 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 Kemi Ramiro RESEARCH & ANALYTICS MANAGER Work Phone: [facility] 11-21-2022 16:22-0400 Body weight 68 kg 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 Kemi Ramiro RESEARCH & ANALYTICS MANAGER Work Phone: [facility] 11-10-2022 08:37-0400 Body mass index (BMI) [Ratio] 35.5 kg/m2 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 Kemi Ramiro RESEARCH & ANALYTICS MANAGER Work Phone: [facility] 11-10-2022 08:37-0400 Diastolic blood pressure 75 mm[Hg] 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 Kemi Ramiro RESEARCH & ANALYTICS MANAGER Work Phone: [facility] 11-10-2022 08:37-0400 Heart rate 70 /min 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 Kemi Ramiro RESEARCH & ANALYTICS MANAGER Work Phone: [facility] 11-10-2022 08:37-0400 Respiratory rate 16 /min 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 Kemi Ramiro RESEARCH & ANALYTICS MANAGER Work Phone: [facility] 11-10-2022 08:37-0400 Systolic blood pressure 114 mm[Hg] 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 Kemi Ramiro RESEARCH & ANALYTICS MANAGER Work Phone: [facility] 10-28-2022 00:15-0400 Body temperature 96.9 [degF] 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 Kemi Earlyndell RESEARCH & ANALYTICS MANAGER Work Phone: [facility] 10-28-2022 00:15-0400 Body weight 99.79 kg 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 Kemi Earlyndell RESEARCH & ANALYTICS MANAGER Work Phone: [facility] 10-20-2022 08:28-0400 Body mass index (BMI) [Ratio] 35.5 kg/m2 PA Cristy Biedenharn Work Phone: [facility] 10-20-2022 08:28-0400 Body temperature 96.9 [degF] PA Cristy Biedenharn Work Phone: [facility] 10-20-2022 08:28-0400 Diastolic blood pressure 60 mm[Hg] PA Cristy Biedenharn Work Phone: [facility] 10-20-2022 08:28-0400 Heart rate 85 /min PA Cristy Biedenharn Work Phone: [facility] 10-20-2022 08:28-0400 Respiratory rate 16 /min PA Cristy Biedenharn Work Phone: [facility] 10-20-2022 08:28-0400 Systolic blood pressure 100 mm[Hg] PA Cristy Biedenharn Work Phone: [facility] 09-27-2022 00:55-0400 Body weight 99.79 kg PA Cristy Biedenharn Work Phone: [facility] 09-15-2022 08:09-0400 Body mass index (BMI) [Ratio] 35.5 kg/m2 Dr. Brian Cardona Work Phone: [facility] 09-15-2022 08:09-0400 Body temperature 96.2 [degF] Dr. Brian Cardona Work Phone: [facility] 09-15-2022 08:09-0400 Diastolic blood pressure 56 mm[Hg] Dr. Brian Cardona Work Phone: [facility] 09-15-2022 08:09-0400 Heart rate 76 /min Dr. Brian Cardona Work Phone: [facility] 09-15-2022 08:09-0400 Respiratory rate 16 /min Dr. Brian Cardona Work Phone: [facility] 09-15-2022 08:09-0400 Systolic blood pressure 120 mm[Hg] Dr. Brian Cardona Work Phone: [facility] 09-05-2022 08:48-0400 Body temperature 97.3 [degF] Dr. Brian Cardona Work Phone: [facility] 09-05-2022 08:48-0400 Diastolic blood pressure 69 mm[Hg] Dr. Brian Cardona Work Phone: [facility] 09-05-2022 08:48-0400 Heart rate 80 /min Dr. Brian Cardona Work Phone: [facility] 09-05-2022 08:48-0400 Respiratory rate 18 /min Dr. Brian Cardona Work Phone: [facility] 09-05-2022 08:48-0400 SaO2% (BldA) [Mass fraction] 95 % Dr. Brian Cardona Work Phone: [facility] 09-05-2022 08:48-0400 Systolic blood pressure 117 mm[Hg] Dr. Brian Cardona Work Phone: [facility] 08-28-2022 00:23-0400 Body weight 99.[address] Brian Cardona Work Phone: [facility] 08-18-2022 08:35-0400 Body mass index (BMI) [Ratio] 35.5 kg/m2 Dr. Brian Cardona Work Phone: [facility] 08-18-2022 08:35-0400 Body temperature 97.2 [degF] Dr. Brian Cardona Work Phone: [facility] 08-18-2022 08:35-0400 Diastolic blood pressure 53 mm[Hg] Dr. Brian Cardona Work Phone: [facility] 08-18-2022 08:35-0400 Heart rate 81 /min Dr. Brian Cardona Work Phone: [facility] 08-18-2022 08:35-0400 Respiratory rate 16 /min Dr. Brian Cardona Work Phone: [facility] 08-18-2022 08:35-0400 Systolic blood pressure 112 mm[Hg] Dr. Brian Cardona Work Phone: [facility] 07-28-2022 00:25-0400 Body weight 99.[address] Brian Cardona Work Phone: [facility] 07-14-2022 08:21-0400 Body mass index (BMI) [Ratio] 35.5 kg/m2 Dr. Brian Cardona Work Phone: [facility] 07-14-2022 08:21-0400 Body temperature 96.8 [degF] Dr. Brian Cardona Work Phone: [facility] 07-14-2022 08:21-0400 Diastolic blood pressure 67 mm[Hg] Dr. Brian Cardona Work Phone: [facility] 07-14-2022 08:21-0400 Heart rate 84 /min Dr. Brian Cardona Work Phone: [facility] 07-14-2022 08:21-0400 Respiratory rate 18 /min Dr. Brian Cardona Work Phone: [facility] 07-14-2022 08:21-0400 Systolic blood pressure 118 mm[Hg] Dr. Brian Cardona Work Phone: [facility] 06-28-2022 01:16-0400 Body weight 99.[address] Brian Cardona Work Phone: [facility] 06-18-2022 14:35-0400 Body temperature 97.6 [degF] Dr. Brian Cardona Work Phone: [facility] 06-18-2022 14:35-0400 Diastolic blood pressure 64 mm[Hg] Dr. Brian Cardona Work Phone: [facility] 06-18-2022 14:35-0400 Heart rate 77 /min Dr. Brian Cardona Work Phone: [facility] 06-18-2022 14:35-0400 Respiratory rate 16 /min Dr. Brian Cardona Work Phone: [facility] 06-18-2022 14:35-0400 SaO2% (BldA) [Mass fraction] 97 % Dr. Brian Cardona Work Phone: [facility] 06-18-2022 14:35-0400 Systolic blood pressure 95 mm[Hg] Dr. Brian Cardona Work Phone: [facility] 06-18-2022 12:17-0400 Body height 167.[address] Brian Cardona Work Phone: [facility] 06-18-2022 12:17-0400 Body mass index (BMI) [Ratio] 30.3 kg/m2 Dr. Brian Cardona Work Phone: [facility] 06-18-2022 12:17-0400 Body weight 85.[address] Brian Cardona Work Phone: [facility] 06-09-2022 08:15-0400 Body mass index (BMI) [Ratio] 35.5 kg/m2 Dr. Brian Cardona Work Phone: [facility] 06-09-2022 08:15-0400 Body temperature 95.9 [degF] Dr. Brian Cardona Work Phone: [facility] 06-09-2022 08:15-0400 Diastolic blood pressure 56 mm[Hg] Dr. Brian Cardona Work Phone: [facility] 06-09-2022 08:15-0400 Heart rate 86 /min Dr. Brian Cardona Work Phone: [facility] 06-09-2022 08:15-0400 Respiratory rate 16 /min Dr. Brian Cardona Work Phone: [facility] 06-09-2022 08:15-0400 Systolic blood pressure 131 mm[Hg] Dr. Brian Cardona Work Phone: [facility] 05-28-2022 00:14-0500 Body weight 99.[address] Brian Cardona Work Phone: [facility] 05-27-2022 13:34-0500 Body height 167.[address] Brian Cardona Work Phone: [facility] 05-27-2022 13:34-0500 Body mass index (BMI) [Ratio] 30.3 kg/m2 Dr. Brian Cardona Work Phone: [facility] 05-27-2022 13:34-0500 Body weight 85.[address] Brian Cardona Work Phone: [facility] 05-27-2022 13:34-0500 Diastolic blood pressure 70 mm[Hg] Dr. Brian Cardona Work Phone: [facility] 05-27-2022 13:34-0500 Respiratory rate 18 /min Dr. Brian Cardona Work Phone: [facility] 05-27-2022 13:34-0500 Systolic blood pressure 139 mm[Hg] Dr. Brian Cardona Work Phone: [facility] 05-26-2022 08:40-0500 Body mass index (BMI) [Ratio] 35.5 kg/m2 Dr. Brian Cardona Work Phone: [facility] 05-26-2022 08:40-0500 Body temperature 96.4 [degF] Dr. Brian Cardona Work Phone: [facility] 05-26-2022 08:40-0500 Diastolic blood pressure 61 mm[Hg] Dr. Brian Cardona Work Phone: [facility] 05-26-2022 08:40-0500 Heart rate 82 /min Dr. Brian Cardona Work Phone: [facility] 05-26-2022 08:40-0500 Respiratory rate 16 /min Dr. Brian Cardona Work Phone: [facility] 05-26-2022 08:40-0500 Systolic blood pressure 111 mm[Hg] Dr. Brian Cardona Work Phone: [facility] 05-02-2022 15:16-0500 Diastolic blood pressure 67 mm[Hg] Dr. Brian Cardoan Work Phone: [facility] 05-02-2022 15:16-0500 Heart rate 80 /min Dr. Brian Cardona Work Phone: [facility] 05-02-2022 15:16-0500 Respiratory rate 16 /min Dr. Brian Cardona Work Phone: [facility] 05-02-2022 15:16-0500 SaO2% (BldA) [Mass fraction] 95 % Dr. Brian Cardona Work Phone: [facility] 05-02-2022 15:16-0500 Systolic blood pressure 125 mm[Hg] Dr. Brian Cardona Work Phone: [facility] 05-02-2022 12:41-0500 Inhaled oxygen flow rate 2 L/min Dr. Brian Cardona Work Phone: [facility] 05-02-2022 12:04-0500 Body temperature 98.2 [degF] Dr. Brian Cardona Work Phone: [facility] 05-02-2022 12:00-0500 Body height 167.[address] Brian Cardona Work Phone: [facility] 05-02-2022 12:00-0500 Body mass index (BMI) [Ratio] 29.6 kg/m2 Dr. Brian Cardona Work Phone: [facility] 05-02-2022 12:00-0500 Body weight 83.[address] Brian Cardona Work Phone: [facility] 04-30-2022 14:49-0500 Respiratory rate 18 /min Dr. Brian Cardona Work Phone: [facility] 04-30-2022 12:12-0500 Body temperature 97.9 [degF] Dr. Brian Cardnoa Work Phone: [facility] 04-30-2022 12:12-0500 Diastolic blood pressure 65 mm[Hg] Dr. Brian Cardona Work Phone: [facility] 04-30-2022 12:12-0500 Heart rate 80 /min Dr. Brian Cardona Work Phone: [facility] 04-30-2022 12:12-0500 SaO2% (BldA) [Mass fraction] 92 % Dr. Brian Cardona Work Phone: [facility] 04-30-2022 12:12-0500 Systolic blood pressure 112 mm[Hg] Dr. Brian Cadrona Work Phone: [facility] 04-30-2022 00:20-0500 Body weight 99.[address] Brian Cardona Work Phone: [facility] 04-29-2022 21:33-0500 Body temperature 97.8 [degF] Dr. Brian Cardona Work Phone: [facility] 04-29-2022 21:33-0500 Diastolic blood pressure 65 mm[Hg] Dr. Brian Cardona Work Phone: [facility] 04-29-2022 21:33-0500 Heart rate 77 /min Dr. Brian Cardona Work Phone: [facility] 04-29-2022 21:33-0500 Respiratory rate 16 /min Dr. Brian Cardona Work Phone: [facility] 04-29-2022 21:33-0500 SaO2% (BldA) [Mass fraction] 94 % Dr. Brian Cardona Work Phone: [facility] 04-29-2022 21:33-0500 Systolic blood pressure 121 mm[Hg] Dr. Brian Cardona Work Phone: [facility] 04-29-2022 13:32-0500 Body height 167.[address] Brian Cardona Work Phone: [facility] 04-29-2022 13:32-0500 Body weight 99.[address] Brian Cardona Work Phone: [facility] 04-28-2022 17:34-0500 Body mass index (BMI) [Ratio] 35.5 kg/m2 Dr. Brian Cardona Work Phone: [facility] 04-25-2022 08:01-0500 Body mass index (BMI) [Ratio] 35.5 kg/m2 Dr. Brian Cardona Work Phone: [facility] 04-25-2022 08:01-0500 Body temperature 96.6 [degF] Dr. Brian Cardona Work Phone: [facility] 04-25-2022 08:01-0500 Diastolic blood pressure 42 mm[Hg] Dr. Brian Cardona Work Phone: [facility] 04-25-2022 08:01-0500 Heart rate 88 /min Dr. Brian Cardona Work Phone: [facility] 04-25-2022 08:01-0500 Systolic blood pressure 100 mm[Hg] Dr. Brian Cardona Work Phone: [facility] 04-15-2022 13:50-0500 Respiratory rate 16 /min Dr. Brian Cardona Work Phone: [facility] 03-30-2022 00:07-0500 Body weight 99.[address] Brian Cardona Work Phone: [facility] 03-28-2022 08:11-0500 Body mass index (BMI) [Ratio] 35.5 kg/m2 Dr. Brian Cardona Work Phone: [facility] 03-28-2022 08:11-0500 Body temperature 97.1 [degF] Dr. Brian Cardona Work Phone: [facility] 03-28-2022 08:11-0500 Diastolic blood pressure 50 mm[Hg] Dr. Brian Cardona Work Phone: [facility] 03-28-2022 08:11-0500 Heart rate 85 /min Dr. Brian Cardona Work Phone: [facility] 03-28-2022 08:11-0500 Respiratory rate 18 /min Dr. Brian Cardona Work Phone: [facility] 03-28-2022 08:11-0500 Systolic blood pressure 88 mm[Hg] Dr. Brian Cardona Work Phone: [facility] 02-28-2022 09:40-0500 Body height 167.[address] Brian Cardona Work Phone: [facility] Work Phone: 02-28-2022 09:40-0500 Body weight 99.[address] Brian Cardona Work Phone: [facility] 02-08-2022 14:59-0500 Diastolic blood pressure 62 mm[Hg] [facility] 02-08-2022 14:59-0500 Heart rate 74 /min [facility] 02-08-2022 14:59-0500 Respiratory rate 14 /min [facility] 02-08-2022 14:59-0500 SaO2% (BldA) [Mass fraction] 99 % [facility] 02-08-2022 14:59-0500 Systolic blood pressure 111 mm[Hg] [facility] 02-08-2022 13:48-0500 Body temperature 97.1 [degF] [facility] 02-08-2022 10:59-0500 Body height 167.64 cm [facility] Work Phone: 02-08-2022 10:59-0500 Body mass index (BMI) [Ratio] 33.5 kg/m2 [facility] 02-08-2022 10:59-0500 Body weight 94.3 [facility] Encounters Encounter Date Encounter Type Care Provider Facility Start: 02-13-2025 ambulatory [facility] Start: 01-20-2025 Non-patient / Non-visit Dr. Basilio Dill [facility] Work Phone: Start: 01-19-2025 Non-patient / Non-visit Dr. Basilio Dill [facility] Work Phone: Start: 01-18-2025 Non-patient / Non-visit Dr. Basilio Dill [facility] Work Phone: Start: 01-17-2025 Non-patient / Non-visit Dr. Basilio Dill [facility] Work Phone: Start: 01-17-2025 ambulatory Brian Mccoy y:[facility] Start: 01-17-2025 End: 01-20-2025 Evaluation and management of inpatient Dr. Basilio Dill DO [facility] Unit Work Phone: Start: 01-04-2025 End: 01-04-2025 Patient encounter procedure Brian Cadrona -[facility] Start: 01-04-2025 End: 01-04-2025 ambulatory Brian LORENZANA Facility:[facility] Start: 12-28-2024 ambulatory Luca Nayak Facility:[facility] Start: 12-28-2024 Non-patient / Non-visit Dr. Luca Nayak MD -[facility] Start: 12-26-2024 End: 12-27-[address] [facility] Work Phone: Start: 12-26-2024 End: 12-27-[address] Brian Cardona MD -[facility] Start: 11-14-2024 ambulatory Luca Nayak Facility:[facility] Start: 11-14-2024 Non-patient / Non-visit Dr. Luca Nayak MD -[facility] Start: 11-14-2024 End: 11-27-[address] Luca N[facility]ak [facility] Work Phone: Start: 11-14-[address] Luca schultz MD -[facility] Work Phone: Start: 11-14-2024 End: 11-27-[address] Brian Cardona MD -[facility] Start: 10-31-2024 End: 10-31-2024 Patient encounter procedure Zenobia GONZALEZ -[facility] Work Phone: Start: 10-31-2024 End: 10-31-[address] Brian Cardona MD -[facility] Start: 10-14-2024 End: 10-14-[address] Brian Cardona MD -[facility] Start: 10-14-2024 End: 10-14-[address] Edmundo Quevedo MD -[facility] Work Phone: Start: 10-14-2024 End: 10-14-2024 ambulatory Edmundo Quevedo Facility:[facility] Start: 10-04-2024 Non-patient / Non-visit Dr. Luca Nayak MD -[facility] Start: 10-03-2024 End: 10-27-[address] Luca Nayak MD -[facility] er Work Phone: Start: 10-03-[address] Lcua schultz MD -[facility] Work Phone: Start: 10-03-2024 Dr. Luca Nayak MD -[facility] Work Phone: Start: 10-03-2024 End: 10-27-[address] Brian Cardona MD -[facility] Ce [facility]ter Start: 10-03-2024 Non-patient / Non-visit Dr. Luca Nayak MD -[facility] Start: 09-28-2024 End: 09-28-[address] Brian Cardona MD -Laboratory Speci men Start: 09-28-2024 End: 09-28-2024 Patient encounter procedure RIKKI CASAS MD -Laboratory [facility] Work Phone: Start: 09-28-2024 End: 09-28-2024 RIKKI CASAS MD -Laboratory Specimen Work Phone: Start: 09-27-2024 End: 09-30-2024 ambulatory Felipa Santos RN [facility] Clinical Communication Start: 09-27-2024 End: 09-30-2024 Patient encounter procedure Felipa Santos RN [facility] Clinical Communication Start: 09-26-2024 End: 10-20-2024 Telephone encounter Rikki Casas MD Work Phone: [facility] [place] Comment on above: Advice Only Start: 09-16-2024 End: 09-16-[address] Edmundo Quevedo MD -[facility] Work Phone: Start: 09-16-2024 End: 09-16-2024 Dr. Edmundo Quevedo MD -[facility] Work Phone: Start: 09-16-2024 End: 09-16-[address] Brian Cardona MD [facility] Work Phone: Start: 08-29-2024 ambulatory Luca Nayak Facility:[facility] Start: 08-29-2024 Non-patient / Non-visit Dr. Luca Nayak MD -[facility] Start: 08-29-2024 Dr. Luca Nayak MD -[facility] Start: 08-29-2024 End: 09-26-[address] Luca Nayak MD [facility] Work Phone: Start: 08-29-2024 End: 09-26-2024 Dr. Luca Nayak MD -[facility] Work Phone: Start: 08-29-2024 End: 09-26-[address] Brian Cardona MD -[facility] Start: 08-07-2024 End: 08-07-2024 Dr. Kit Harris MD -Emergency Departm ent Work Phone: Start: 08-07-2024 End: 08-07-2024 Emergency department patient visit Dr. Brian Cardona MD -Emergency Department Work Phone: Start: 08-05-2024 ambulatory Brian Cardona Facilit y:[facility] Start: 08-02-2024 End: 08-02-2024 Dr. Hebert [facility] Work Phone: Start: 08-02-2024 End: 08-02-2024 Emergency department patient visit Cristy Suleiman GONZALEZ Work Phone: -Emergency Department Work Phone: Start: 08-01-2024 Non-patient / Non-visit Dr. Isha Zurita MD [facility] Work Phone: Start: 08-01-2024 Dr. Isha Zurita MD [facility] Work Phone: Start: 07-31-2024 Non-patient / Non-visit Dr. Miller Blank MD [facility] Work Phone: Start: 07-31-2024 Dr. Miller Blank MD -[facility] Inpatient Physicians Work Phone: Start: 07-30-2024 Non-patient / Non-visit Dr. Miller Blank MD [facility] Work Phone: Start: 07-30-2024 Dr. Miller Blnak MD [facility] Inpatient Physicians Work Phone: Start: 07-29-2024 End: 08-01-2024 Evaluation and management of inpatient Dr. Basilio Dill DO -Progressive Care Unit Work Phone: Start: 07-29-2024 End: 08-01-2024 Dr. Basilio Dill DO -Progressive Care Un it Work Phone: Start: 07-29-2024 End: 07-29-2024 ambulatory Rocio Gutierrez RN [facility] Clinical Communication Start: 07-29-2024 End: 07-29-2024 Patient encounter procedure Rocio Gutierrez RN [facility] Clinical Communication Start: 07-26-2024 [facility] / [facility] Start: 07-25-2024 Non-patient / [facility] Start: 07-25-2024 End: 07-27-[address] Luca Nayak MD -[facility] Work Phone: Start: 07-25-2024 End: 07-27-2024 Dr. Luca Nayak MD -[facility] Work Phone: Start: 07-25-2024 End: 07-27-2024 ambulatory [facility] Facility:[facility] Start: 07-11-2024 End: 07-11-2024 ambulatory Cristy Bearden PA Work Phone: [facility] Work Phone: Start: 07-11-2024 End: 07-11-[address] Brian Cardona MD -Laboratory, [place] Work Phone: Start: 07-11-2024 End: 07-11-2024 Dr. Brain Cardona MD -Laboratory [facility] Work Phone: Start: 07-11-2024 End: 07-11-2024 ambulatory Brian Cardona Facility:[facility] Start: 06-27-2024 ambulatory Luca Nayak Facility:[facility] Start: 06-27-2024 Non-patient / Non-visit Dr. Luca Nayak MD -[facility] Start: 06-27-2024 Dr. Luca Nayak MD -[facility] Start: 06-27-2024 End: 06-27-2024 ambulatory Cristy GONZALEZ Work Phone: [facility] Work Phone: Start: 06-27-2024 End: 06-27-[address] Luca Nayak MD -[facility] Work Phone: Start: 06-27-2024 End: 06-27-2024 Dr. Luca Nayak MD -[facility] Work Phone: Start: 06-22-[address] Juliana Shaw MD -Cardiovascular Services Work Phone: Start: 06-22-2024 ambulatory [facility] Facilit y:[facility] Start: 06-22-2024 Non-patient / Non-visit Dr. Alex Mancera MD -[facility] Work Phone: Start: 06-22-2024 Dr. Juliana Shaw MD -[facility] Work Phone: Start: 06-12-2024 Non-patient / Non-visit Dr. Juliana Shaw MD [facility] Work Phone: Start: 06-12-2024 Dr. Juliana Shaw MD -[facility] Inpatient [facility]icians Work Phone: Start: 06-11-2024 Non-patient / Non-visit Dr. Juliana Shaw MD [facility] Work Phone: Start: 06-11-2024 Dr. Juliana Shaw MD -[facility] Work Phone: Start: 06-10-2024 Non-patient / Non-visit Dr. Juliana Shaw MD [facility] Work Phone: Start: 06-10-2024 Dr. Jluiana Shaw MD -[facility] Work Phone: Start: 06-09-2024 End: 06-12-2024 ambulatory [facility] Facility:[facility] Start: 06-09-2024 End: 06-12-2024 Evaluation and management of inpatient Dr. Juliana Shaw MD -Progressive Care Unit Work Phone: Start: 06-09-2024 End: 06-12-2024 Dr. Juliana Shaw MD -[facility] Care Un it Work Phone: Start: 06-03-2024 End: 06-03-[address] Edmundo Quevedo MD -[facility] Work Phone: Start: 06-03-2024 End: 06-03-2024 Dr. Edmundo Quevedo MD -[facility] Work Phone: Start: 06-03-2024 End: 06-03-2024 ambulatory Edmundo Quevedo Facility:[facility] Start: 05-30-2024 ambulatory Luca Nayak Facility:[facility] Start: 05-30-2024 Non-patient / Non-visit Dr. Luca Nayak MD -[facility] Start: 05-30-2024 Dr. Luca Nayak MD [facility] Start: 05-30-[address] Luca schultz MD -[facility] Work Phone: Start: 05-02-2024 End: 05-27-2024 Discharged Recurring Kemibehzad Rubio 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 -[facility] Work Phone: Start: 05-02-2024 End: 05-27-2024 ambulatory Kemi Rubio RESEARCH & ANALYTICS MANAGER Facility:[facility] Start: 05-02-2024 Non-patient / Non-visit Dr. Luca Nayak MD -[facility] Start: 04-04-2024 ambulatory Luca Nayak Facility:[facility] Start: 04-04-2024 Non-patient / Non-visit Dr. Luca Nayak MD -[facility] Start: 04-04-2024 End: 04-29-2024 Discharged Recurring Kemibehzad Rubio 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 -[facility] Work Phone: Start: 04-04-2024 End: 04-29-2024 ambulatory Kemi Rubio RESEARCH & ANALYTICS MANAGER Facility:[facility] Start: 03-31-2024 End: 03-31-2024 Telephone encounter Rikki Casas MD Work Phone: [facility] Comment on above: Orders Start: 03-30-2024 ambulatory Kemi Rubio RESEARCH & ANALYTICS MANAGER Fa cility:[facility] Start: 03-24-2024 End: 03-24-2024 Discharged Recurring Kemi Rubio 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 -Home Health Lab Start: 03-24-2024 End: 03-24-2024 ambulatory Brian Cardona Facility:[facility] Start: 03-21-2024 ambulatory Luca Nayak Facility:[facility] Start: 03-21-2024 Non-patient / Non-visit Dr. Luca Nayak MD -[facility] Start: 03-21-2024 End: 03-29-2024 Discharged Recurring Kemi Rubio 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 -[facility] Work Phone: Start: 03-21-2024 End: 03-29-2024 ambulatory Kemi Rubio RESEARCH & ANALYTICS MANAGER Facility:[facility] Start: 02-24-2024 ambulatory Luca Nayak Facility:[facility] Start: 02-24-2024 Non-patient / Non-visit Kemi Rubio 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 -[facility] Start: 02-24-2024 End: 02-27-[address] Luca Nayak MD -[facility] Work Phone: Start: 02-24-2024 End: 02-27-2024 ambulatory Luca Nayak Facility:[facility] Start: 01-25-2024 End: 01-26-2024 Telephone encounter Rikki Casas MD Work Phone: [facility] Comment on above: Other Start: 01-22-2024 End: 01-22-2024 Office outpatient visit 15 minutes Rikki Casas MD [facility] Comment on above: Urinary retention (P rimary Dx) Start: 12-18-2023 End: 12-28-2023 ambulatory Emerald Slater RN [facility] Clinical Communication Start: 12-18-2023 End: 12-28-2023 Patient encounter procedure Emerald Slater RN [facility] Clinical Communication Start: 12-11-2023 End: 12-11-2023 Subsequent hospital visit by physician Rikki Casas MD Work Phone: [facility] [place] Start: 12-10-2023 End: 12-10-2023 Telephone encounter Rikki Casas MD Work Phone: [facility] [place] Start: 12-07-2023 End: 12-07-2023 Telephone encounter Rikki Casas MD Work Phone: [facility] Start: 08-19-2023 Telephone encounter Zackery Carmona MD Work Phone: [facility] Start: 07-22-2023 Non-patient / Non-visit 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 Kemi Ramiro RESEARCH & ANALYTICS MANAGER Work Phone: [facility] Start: 07-22-2023 End: 07-28-2023 ambulatory 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 Kemi E Ramiro RESEARCH & ANALYTICS MANAGER Work Phone: [facility] Work Phone: Start: 07-22-2023 End: 07-28-2023 Discharged Recurring 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 Kemi Ramiro RESEARCH & ANALYTICS MANAGER Work Phone: [facility] Work Phone: Start: 07-02-2023 End: 07-02-2023 Patient encounter procedure 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 Kemibehzad EarlyRamiro RESEARCH & ANALYTICS MANAGER Work Phone: [facility] Work Phone: Start: 06-29-2023 Non-patient / Non-visit 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 Kemi Ramiro RESEARCH & ANALYTICS MANAGER Work Phone: [facility] Start: 06-15-2023 Non-patient / Non-visit 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 Kemi Ramiro RESEARCH & ANALYTICS MANAGER Work Phone: [facility] Start: 06-15-2023 End: 06-28-2023 ambulatory 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 Kemi E Ramiro RESEARCH & ANALYTICS MANAGER Work Phone: [facility] Work Phone: Start: 06-15-2023 End: 06-28-2023 Discharged Recurring 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 Kemi Ramiro RESEARCH & ANALYTICS MANAGER [facility] Work Phone: Start: 06-14-2023 Telephone encounter Brian fritz MD Work Phone: [facility] Clinical Communication Comment on above: Other Start: 06-01-2023 Non-patient / Non-visit 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 Kemi Ramiro RESEARCH & ANALYTICS MANAGER Work Phone: [facility] Start: 05-18-2023 Non-patient / Non-visit 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 Kemi Ramiro RESEARCH & ANALYTICS MANAGER Work Phone: [facility] Start: 05-18-2023 End: 05-28-2023 ambulatory 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 Kemi Kia EarlyRamiro RESEARCH & ANALYTICS MANAGER Work Phone: [facility] Work Phone: Start: 05-18-2023 End: 05-28-2023 Discharged Recurring 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 Kemi Earylndell RESEARCH & ANALYTICS MANAGER Work Phone: [facility] Work Phone: Start: 05-04-2023 Non-patient / Non-visit 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 Kemibehzad EarlyRamiro RESEARCH & ANALYTICS MANAGER Work Phone: [facility] Start: 04-21-2023 Non-patient / Non-visit 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 Kemibehzad EarlyRamiro RESEARCH & ANALYTICS MANAGER Work Phone: [facility] Start: 04-21-2023 End: 04-29-2023 ambulatory 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 Kemi Kia EarlyRamiro RESEARCH & ANALYTICS MANAGER Work Phone: [facility] Work Phone: Start: 04-21-2023 End: 04-29-2023 Discharged Recurring 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 Kemi Workmanell RESEARCH & ANALYTICS MANAGER Work Phone: [facility] Work Phone: Start: 04-06-2023 Non-patient / Non-visit 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 Kemibehzad EarlyRamiro RESEARCH & ANALYTICS MANAGER Work Phone: [facility] Start: 03-16-2023 Non-patient / Non-visit 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 Kemi Ramiro RESEARCH & ANALYTICS MANAGER Work Phone: [facility] Start: 03-16-2023 End: 03-29-2023 ambulatory 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 Kemi E Ramiro RESEARCH & ANALYTICS MANAGER Work Phone: [facility] Work Phone: Start: 03-16-2023 End: 03-29-2023 Discharged Recurring 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 Kemi Earlyndell RESEARCH & ANALYTICS MANAGER [facility] Work Phone: Start: 03-06-2023 ambulatory Adilene Henderson linical Communication Start: 03-06-2023 Patient encounter procedure Adilene Campbell [facility] Start: 03-02-2023 Non-patient / Non-visit 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 Kemi Earlyndell RESEARCH & ANALYTICS MANAGER Work Phone: [facility] Start: 02-16-2023 Non-patient / Non-visit 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 Kemibehzad EarlyRamiro RESEARCH & ANALYTICS MANAGER Work Phone: [facility] Start: 02-16-2023 End: 02-16-2023 ambulatory 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 Kemi Earlyndell RESEARCH & ANALYTICS MANAGER Work Phone: [facility] Work Phone: Start: 02-16-2023 End: 02-16-2023 Patient encounter procedure 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 Kemi Earlyndell RESEARCH & ANALYTICS MANAGER Work Phone: [facility] Work Phone: Start: 02-16-2023 End: 02-26-2023 ambulatory 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 Kemi Earlyndell RESEARCH & ANALYTICS MANAGER Work Phone: [facility] Work Phone: Start: 02-16-2023 End: 02-26-2023 Discharged Recurring 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 Kemi Earlyndell RESEARCH & ANALYTICS MANAGER [facility] Work Phone: Start: 02-16-2023 Registered Recurring 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 Johnc colten Ramiro RESEARCH & ANALYTICS MANAGER Work Phone[facility] Work Phone: Start: 01-19-2023 Non-patient / Non-visit 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 Kemi Earlyndell RESEARCH & ANALYTICS MANAGER Work Phone: [facility] Start: 01-19-2023 End: 01-27-2023 ambulatory 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 Kemi Earlyndell RESEARCH & ANALYTICS MANAGER Work Phone: [facility] Work Phone: Start: 01-19-2023 End: 01-27-2023 Discharged Recurring 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 Kemi Earlyndell RESEARCH & ANALYTICS MANAGER Work Phone: [facility] Work Phone: Start: 12-29-2022 Non-patient / Non-visit 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 Kemi Earlyndell RESEARCH & ANALYTICS MANAGER Work Phone: [facility] Start: 12-19-2022 End: 12-19-2022 Patient encounter procedure 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 Kemi Earlyndell RESEARCH & ANALYTICS MANAGER Work Phone: [facility] Work Phone: Start: 12-08-2022 Non-patient / Non-visit 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 Kemi Earlyndell RESEARCH & ANALYTICS MANAGER Work Phone: [facility] Start: 12-08-2022 End: 12-27-2022 ambulatory 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 Kemi Earlyndell RESEARCH & ANALYTICS MANAGER Work Phone: [facility] Work Phone: Start: 12-08-2022 End: 12-27-2022 Discharged Recurring 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 Kemi Earlyndell RESEARCH & ANALYTICS MANAGER Work Phone[facility] Work Phone: Start: 11-24-2022 Non-patient / Non-visit 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 Kemibehzad EarlyRamiro RESEARCH & ANALYTICS MANAGER Work Phone: [facility] Start: 11-23-2022 Non-patient / Non-visit 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 Kemi Ramiro RESEARCH & ANALYTICS MANAGER Work Phone: [facility] Start: 11-22-2022 Non-patient / Non-visit 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 Kemi Ramiro RESEARCH & ANALYTICS MANAGER Work Phone: [facility] Start: 11-21-2022 End: 11-24-2022 Evaluation and management of inpatient 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 Kemi Ramiro RESEARCH & ANALYTICS MANAGER Work Phone: [facility] Work Phone: Start: 11-21-2022 Non-patient / Non-visit 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 Kemi Ramiro RESEARCH & ANALYTICS MANAGER Work Phone: [facility] Start: 11-10-2022 Non-patient / Non-visit 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 Kemi Ramiro RESEARCH & ANALYTICS MANAGER Work Phone: [facility] Start: 11-10-2022 End: 11-27-2022 ambulatory 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 Kemi Rubio RESEARCH & ANALYTICS MANAGER Work Phone: [facility] Work Phone: Start: 11-10-2022 End: 11-27-2022 Discharged Recurring 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 Kemi Ramiro RESEARCH & ANALYTICS MANAGER Work Phone: [facility] Work Phone: Start: 11-10-2022 Registered Recurring 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 Johnbeatriz abel Ramiro RESEARCH & ANALYTICS MANAGER Work Phone: [facility] [place] Work Phone: Start: 10-20-2022 Non-patient / Non-visit PA Cristy Biedenharn Work Phone: [facility] Start: 10-20-2022 End: 10-27-2022 ambulatory PA Cristy Biedenharn Work Phone: [facility] Work Phone: Start: 10-20-2022 End: 10-27-2022 Discharged Recurring PA Cristy Biedenharn Work Phone: [facility] Work Phone: Start: 10-17-2022 End: 10-17-2022 Non-patient / Non-visit 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 Kemi Ramiro RESEARCH & ANALYTICS MANAGER Work Phone: [facility] Work Phone: Start: 10-06-2022 Non-patient / Non-visit CARLOS Verma Work Phone: [facility] Start: 09-15-2022 Non-patient / Non-visit Dr. Brian Cardona Work Phone: [facility] Start: 09-15-2022 End: 09-26-[address] Brian Cardona Work Phone: [facility] Work Phone: Start: 09-15-2022 End: 09-26-[address] Brian Cardona Work Phone: [facility] Work Phone: Start: 09-05-2022 End: 09-05-[address] Brian Cardona Work Phone: [facility] Work Phone: Start: 09-01-2022 Non-patient / Non-visit Dr. Brian Cardona Work Phone: [facility] Start: 08-18-2022 Non-patient / Non-visit Dr. Brian Cardona Work Phone: [facility] Start: 08-18-2022 End: 08-27-[address] Brian Cardona Work Phone: [facility] Work Phone: Start: 08-18-2022 End: 08-27-[address] Brian Cardona [facility] Start: 07-28-2022 Non-patient / Non-visit Dr. Brian Cardona Work Phone: [facility] Start: 07-14-2022 Non-patient / Non-visit Dr. Brian Cardona Work Phone: [facility] Start: 07-14-2022 End: 07-27-[address] Brian Cardona Work Phone: [facility] Work Phone: Start: 07-14-2022 End: 07-27-[address] Brian Cardona [facility] Start: 06-30-2022 Non-patient / Non-visit Dr. Brian Cardona Work Phone: [facility] Start: 06-18-2022 Non-patient / Non-visit Dr. Brian Cardona Work Phone: [facility] Start: 06-18-2022 End: 06-18-2022 Admission to same day surgery center Dr. Brian Cardona Work Phone: [facility] Start: 06-18-2022 End: 06-18-[address] Brian Cardona Work Phone: [facility] Work Phone: Start: 06-09-2022 Non-patient / Non-visit Dr. Brian Cardona Work Phone: [facility] Start: 06-09-2022 End: 06-27-[address] Brian Cardona Work Phone: [facility] Work Phone: Start: 06-09-2022 End: 06-27-[address] [facility]ona [facility] Start: 06-09-[address] Ritika Cardona [facility] Phone[facility] Start: 05-27-2022 End: 05-27-[address] Brian Cardona Work Phone: [facility] Start: 05-26-2022 Non-patient / Non-visit Dr. Brian Cardona Work Phone: [facility] Start: 05-26-2022 End: 05-27-[address] Brian Cardona Work Phone: [facility] Work Phone: Start: 05-26-2022 End: 05-27-[address] [facility] Cardona [facility] Start: 05-12-2022 Non-patient / Non-visit Dr. Brian Cardona Work Phone: [facility] Start: 05-05-2022 Non-patient / Non-visit Dr. Brian Cardona Work Phone: [facility] Start: 05-02-2022 End: 05-02-2022 Emergency department patient visit Dr. Brian Cardona Work Phone: [facility] Start: 04-30-2022 Non-patient / Non-visit Dr. Brian Cardona Work Phone: [facility] Start: 04-29-2022 Non-patient / Non-visit Dr. Brian Cardona Work Phone: [facility] Start: 04-29-2022 Non-patient / Non-visit Dr. Brian Cardona Work Phone: [facility] Start: 04-28-2022 End: 04-30-2022 Evaluation and management of inpatient Dr. Brian Cardona [facility] Start: 04-28-2022 End: 04-28-2022 Non-patient / Non-visit Dr. Brian Cardona Work Phone: [facility] Start: 04-25-2022 End: 04-29-[address] Brian Cardona Work Phone: [facility] Work Phone: Start: 04-25-2022 End: 04-29-[address] [facility] Cardona [facility] Start: 04-25-2022 Non-patient / Non-visit Dr. Brian Cardona Work Phone: [facility] Start: 04-15-2022 Non-patient / Non-visit Dr. Brian Cardona Work Phone: [facility] Start: 04-10-2022 Non-patient / Non-visit Dr. Brian Cardona Work Phone: [facility] Start: 03-28-2022 Non-patient / Non-visit Dr. Brian Cardona Work Phone: [facility] Start: 03-28-2022 End: 03-29-[address] Brian Cardona Work Phone: [facility] Work Phone: Start: 03-28-2022 End: 03-29-[address] Brian Cardona Work Phone: [facility] Start: 03-14-2022 Non-patient / Non-visit Dr. Brian Cardona Work Phone: [facility] Start: 03-07-2022 Non-patient / Non-visit Dr. Brian Cardona Work Phone: [facility] Start: 02-28-2022 Non-patient / Non-visit Dr. Brian Cardona Work Phone: [facility] Start: 02-08-2022 End: 02-08-2022 Emergency department patient visit [facility] Start: 06-22-2018 End: 06-22-2018 Patient encounter procedure PRAVIN PEDRAZA Facility:[facility] Procedures Date Procedure Procedure Detail Performing Clinician Start: 01-19-[address] Brian Cardona MD Start: 01-17-[address] Ritika Cardona MD Start: 01-17-[address] Ritika Cardona MD Start: 01-17-2025 Urnls dip stick/tabl et reagent auto microscopy Dr. Brian Cardona MD Start: 01-17-2025 Radiologic exam ches t [address] Brian Cardona MD Start: 01-04-2025 Urnls dip stick/tabl et reagent auto microscopy Dr. Brian Cardona MD Start: 01-04-[address] Brian Cardona MD Start: 01-04-[address] Ritika Cardona MD Start: 10-14-2024 MRI of thoracic spine D surendra Cardona MD Start: 09-28-2024 Urnls dip stick/tabl et reagent auto microscopy Dr. Brian Cardona MD Start: 09-28-[address] Ritika Cardona MD Start: 08-07-2024 Urine microscopy: red cells Dr. Brian Cardona MD Start: 08-07-2024 Urnls dip stick/tabl et reagent auto microscopy Dr. Brian Cardona MD Start: 08-07-2024 CT of head without contrast Dr. Brian Cardona MD Start: 08-07-2024 Plain chest X-ray Dr. Leopoldo Cardona MD Start: 08-07-2024 Blood count smear mc rscp w/mnl difrntl wbc count Dr. Brian Cardona MD Start: 08-07-[address] Brian Cardona MD Start: 08-07-2024 Mean corpuscular hem oglobin concentration determination Dr. Brian Cardona MD Start: 08-07-2024 Nucleated red blood cell count procedure Dr. Brian Cardona MD Start: 08-07-2024 Platelet mean volume determination Dr. Brian Cardona MD Start: 08-02-2024 Urine microscopy: red cells Dr. Brian Cardona MD Start: 08-02-2024 Urnls dip stick/tabl et reagent auto microscopy Dr. Brian Cardona MD Start: 08-02-[address] Brian Cardona MD Start: 08-02-2024 Venous oxygen satura tion measurement Dr. Brian Cardona MD Start: 08-02-2024 X-ray of chest, PA a nd lateral views Cristy Bearden [place] Work Phone: Start: 08-02-2024 Blood count smear mc rscp w/mnl difrntl wbc count Dr. Brian Cardona MD Start: 08-02-[address] Brian Cardona MD Start: 08-02-2024 Mean corpuscular hem oglobin concentration determination Dr. Brian Cardona MD Start: 08-02-2024 Nucleated red blood cell count procedure Dr. Brian Cardona MD Start: 08-02-2024 Platelet mean volume determination Dr. Brian Cardona MD Start: 08-01-2024 Complete ultrasound of kidneys and bladder Cristy Bearden [place] Work Phone: Start: 08-01-2024 Blood count smear mc rscp w/mnl difrntl wbc count Dr. Brian Cardona MD Start: 08-01-[address] Brian Cardona MD Start: 08-01-2024 Mean corpuscular hem oglobin concentration determination Dr. Brian Cardona MD Start: 08-01-2024 Nucleated red blood cell count procedure Dr. Brian Cardona MD Start: 08-01-2024 Platelet mean volume determination Dr. Brian Cardona MD Start: 07-31-2024 Serum inorganic phos phate measurement Dr. Brian Cardona MD Start: 07-30-[address] Dav Cardona MD Start: 07-29-2024 X-ray of chest, PA a nd lateral views Cristy Bearden [place] Work Phone: Start: 07-29-2024 Calculation of international normalized ratio Dr. Brian Cardona MD Start: 07-29-2024 Urine microscopy: red cells Dr. Brian Cardona MD Start: 07-29-2024 Urnls dip stick/tabl et reagent auto microscopy Dr. Brian Cardona MD Start: 07-29-[address] Ritika Cardona MD Start: 07-29-2024 SARS-CoV-2, Influenz a & RSV (PCR) Cristy Bearden [place] Work Phone: Start: 07-29-2024 Urine culture Cristy H marta PA Work Phone: Start: 07-29-2024 Dr. Anthony Cardona MD Start: 07-11-2024 Blood count smear mc rscp w/mnl difrntl wbc count Dr. Brian Cardona MD Start: 07-11-2024 Mean corpuscular hem oglobin concentration determination Dr. Brian Cardona MD Start: 07-11-2024 Nucleated red blood cell count procedure Dr. Brian Cardona MD Start: 07-11-2024 Platelet mean volume determination Dr. Brian Cardona MD Start: 07-11-2024 Prostate specific an tigen measurement Dr. Brian Cardona MD Comment on above: This test [...] Total cholesterol:HD L ratio measurement Dr. Brian Cardona MD Start: 06-12-2024 Blood count smear mc rscp w/mnl difrntl wbc count Dr. Brian Cardona MD Start: 06-12-[address] Brian Cardona MD Start: 06-12-2024 Mean corpuscular hem oglobin concentration determination Dr. Brian Cardona MD Start: 06-12-2024 Nucleated red blood cell count procedure Dr. Brian Cardona MD Start: 06-12-2024 Platelet mean volume determination Dr. Brian Cardona MD Start: 06-09-2024 Blood culture Cristy GONZALEZ Work Phone: Start: 06-09-2024 SARS-CoV-2, Influenz a & RSV (PCR) Cristy Bearden PA Work Phone: Start: 06-09-2024 Urine culture Cristy GONZALEZ Work Phone: Start: 06-09-2024 Dr. Anthony Cardona MD Start: 06-09-[address] Dav Cardona MD Start: 06-09-2024 Urine microscopy: red cells Dr. Brian Cardona MD Start: 06-09-2024 Urnls dip stick/tabl et reagent auto microscopy Dr. Brian Cardona MD Start: 06-09-2024 X-ray of chest, PA a nd lateral views Cristy Bearden PA Work Phone: Start: 06-03-2024 X-ray of cervical spine Cristy Bearden PA Work Phone: Start: 04-06-2023 Anaerobic microbial culture 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 Kemi Ramiro RESEARCH & ANALYTICS MANAGER Work Phone: Start: 04-06-2023 Investigation of transfusion reaction 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 Kemi Ramiro RESEARCH & ANALYTICS MANAGER Work Phone: Start: 04-06-2023 Microbial culture, routine 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 Kemi Ramiro RESEARCH & ANALYTICS MANAGER Work Phone: Start: 02-16-2023 Radiography of thora cic spine 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 Kemi Ramiro RESEARCH & ANALYTICS MANAGER Work Phone: Start: 11-21-2022 Construction of end colostomy 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 Kemi Ramiro RESEARCH & ANALYTICS MANAGER Work Phone: Start: 11-10-2022 Anaerobic microbial culture 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 Kemi Ramiro RESEARCH & ANALYTICS MANAGER Work Phone: Start: 11-10-2022 Investigation of transfusion reaction 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 Kemi Ramiro RESEARCH & ANALYTICS MANAGER Work Phone: Start: 11-10-2022 Microbial culture, routine 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 Kemi Ramiro RESEARCH & ANALYTICS MANAGER Work Phone: Start: 07-14-[address] Brian Cardona Work Phone: Start: 07-14-2022 Investigation of transfusion reaction Dr. Brian Cardona Work Phone: Start: 07-14-2022 Microbial culture, routine Dr. Brian Cardona Work Phone: Start: 06-18-[address] Anthony Cardona Work Phone: Start: 05-02-2022 CT of pelvis with contrast Dr. Brian Cardona Work Phone: Start: 05-02-2022 CT cervical spine wi thout contrast Dr. Brian Cardona Work Phone: Start: 05-02-2022 CT of head without contrast Dr. Brian Cardona Work Phone: Start: 04-28-[address] Brian Cardona Work Phone: Start: 02-08-2022 Plain chest X-ray Start: 02-08-2022 Computed tomography of abdomen and pelvis with intravenous contrast Anaerobic microbial culture Dr. Brian Cardona Work Phone: Anaerobic microbial culture Dr. Brian Cardona Work Phone: Anaerobic microbial culture Dr. Brian Cardona Work Phone: Anaerobic microbial culture Dr. Brian Cardona Work Phone: Clostridium difficil e detection Dr. Brian Cardona Work Phone: Fungus stain method Dr. Amol Cardona Work Phone: H/O: colostomy S/P colostomy 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 Kemi Rubio RESEARCH & ANALYTICS MANAGER Work Phone: Comment on above: Patient is [...] surgery. Investigation of transfusion reaction Dr. Brian Cardona Work Phone: Investigation of transfusion reaction Dr. Brina Cardona Work Phone: Investigation of transfusion reaction Dr. Brian Cardona Work Phone: Investigation of transfusion reaction Dr. Brian Cardona Work Phone: Microbial culture, routine D surendra Cardona Work Phone: Microbial culture, routine D surendra Cardona Work Phone: Microbial culture, routine D surendra Torres [place] Work Phone: Microbial culture, routine D surendra Cardona Work Phone: Microbial culture, routine D surendra Cardona Work Phone: Mycology culture Dr. Brian Cardona Work Phone: Plan of Treatment Date Care Activity Detail Author Start: 01-20-2025 Patient discharge [facility] Start: 01-19-2025 Referral to service [facility] Start: 01-19-2025 Palliative care [facility] Start: 01-19-2025 Oxygen therapy [facility] Start: 01-18-2025 Palliative care [facility] Start: 01-18-2025 Wound care [facility] Start: 01-17-2025 End: 01-17-2025 Following clinical pathway protocol [facility] Start: 01-17-2025 Assessment of risk of venous thromboembolism [facility] Start: 01-17-2025 Consultation for treatment [facility] Start: 01-17-2025 Insertion of catheter into peripheral vein [facility] Start: 01-17-2025 Measuring intake and output [facility] Start: 01-17-2025 Providing care according to standard [facility] Start: 01-17-2025 Provision of activity privileges [facility] Start: 01-17-2025 Referral for physical therapy [facility] Start: 01-17-2025 Referral to occupational therapist [facility] Start: 01-17-2025 Referral to service [facility] Start: 01-17-2025 [facility] Start: 01-17-2025 Admission procedure [facility] Start: 01-17-2025 Patient referral to dietitian [facility] Start: 11-28-2024 Influenza vaccination [facility] Start: 08-07-2024 [facility] Start: 08-07-2024 [facility] Start: 08-02-2024 [facility] Start: 08-01-2024 Patient discharge [facility] Start: 08-01-2024 Wound care [facility] Start: 07-31-2024 [facility] Start: 07-30-2024 Referral to service [facility] Start: 07-30-2024 End: 07-30-2024 [facility] Start: 07-30-2024 Care regimes management [facility] Start: 07-30-2024 Notification of physician [facility] Start: 07-30-2024 Consultation for treatment [facility] Start: 07-29-2024 Following clinical pathway protocol [facility] Start: 07-29-2024 Aspiration precautions [facility] Start: 07-29-2024 Assessment of risk of venous thromboembolism [facility] Start: 07-29-2024 Consultation [facility] Start: 07-29-2024 Fall prevention [facility] Start: 07-29-2024 Inhalation therapy procedure [facility] Start: 07-29-2024 Insertion of catheter into peripheral vein [facility] Start: 07-29-2024 Measuring intake and output [facility] Start: 07-29-2024 Providing care according to standard [facility] Start: 07-29-2024 Provision of activity privileges [facility] Start: 07-29-2024 Referral to occupational therapist [facility] Start: 07-29-2024 Referral to service [facility] Start: 07-29-2024 [facility] Start: 07-29-2024 Admission procedure [facility] Start: 07-29-2024 [facility] Start: 07-29-2024 Blood culture Blood Culture [facility] Start: 07-29-2024 Patient referral to dietitian [facility] Start: 06-12-2024 Patient discharge [facility] Start: 06-10-2024 Referral to service [facility] Start: 06-10-2024 Referral to service [facility] Start: 06-09-2024 Bacteria identified in Blood by Culture Blood Culture [facility] Start: 06-09-2024 Bacteria identified in Urine by Culture Urine Culture [facility] Start: 06-09-2024 Blood culture Blood Culture [facility] Start: 06-09-2024 Wound care [facility] Start: 06-09-2024 Assessment of risk of venous thromboembolism [facility] Start: 06-09-2024 Consultation for treatment [facility] Start: 06-09-2024 Inhalation therapy procedure [facility] Start: 06-09-2024 Insertion of catheter into peripheral vein [facility] Start: 06-09-2024 Measuring intake and output [facility] Start: 06-09-2024 Oxygen therapy [facility] Start: 06-09-2024 Providing care according to standard [facility] Start: 06-09-2024 Provision of activity privileges [facility] Start: 06-09-2024 Referral to occupational therapist [facility] Start: 06-09-2024 Referral to service [facility] Start: 06-09-2024 [facility] Start: 06-09-2024 Verification routine [facility] Start: 06-09-2024 Admission procedure [facility] Start: 06-09-2024 Hospital admission, emergency, from emergency room, medical nature [facility] Start: 06-09-2024 End: 06-09-2024 [facility] Start: 01-22-2024 End: 01-22-2024 Patient encounter procedure [facility] Start: 12-11-2023 End: 12-11-2023 Admission to same day surgery center 12/11/2023 1:30 PM EDT - 12/11/2023 2:30 PM EDT Surgery [facility] [address] [address] Rikki Casas MD [address] [id number] CYSTOSCOPY [96854 (CPT )] [facility] Comment on above: CYSTOSCOPY [00930 (CPT )] Start: 12-11-2023 End: 12-11-2023 Anesthesia consultation 12/11/2023 1:30 PM EDT Anesthesia Event [facility] [address] [facility] [address] [place] [address] Edy Timmons, [employer]ORE [employer] - [employer] [address] [place] [address] [facility] Start: 12-11-2023 Subsequent hospital visit by physician 12/11/2023 1:30 PM EDT Hospital Encounter [facility] [address] [place] [phone] Rikki Casas MD [address] [place] [address] [facility] Start: 12-11-2023 End: 12-11-2023 Cystostomy cystotomy w/drainage [facility] Start: 12-11-2023 End: 12-11-2023 Cystourethroscopy [facility] Start: 11-29-2023 COVID-19 Vaccine ( season) COVID-19 Vaccine () [facility] Start: 11-29-2023 COVID-19 Vaccine ( season) COVID-19 Vaccine () [facility] Start: 11-29-2023 Influenza vaccination Influenza Vaccine (#1) [facility] Start: 10-23-2023 End: 10-23-2023 Patient encounter procedure 10/23/2023 10:30 AM EDT Office Visit [facility] [address] [place] [phone] Rikki Casas MD [address] [place] [address] [facility] Start: 10-12-2023 End: 10-12-2023 Patient encounter procedure 10/12/2023 2:00 PM EDT Office Visit [facility] [address] [place] [phone] Zackery Carmona MD [address] [place], [place] [id number] [facility] Start: 11-28-2022 COVID-19 Vaccine ( season) COVID-19 Vaccine () [facility] Start: 11-25-2022 Wound care [facility] Start: 11-24-2022 Patient discharge [facility] Start: 11-23-2022 Removal of urinary catheter [facility] Start: 11-22-2022 Referral to service [facility] Start: 11-22-2022 [facility] Start: 11-22-2022 Consultation for treatment [facility] Start: 11-21-2022 Admission procedure [facility] Start: 11-21-2022 Application of intermittent pneumatic compression device [facility] Start: 11-21-2022 Following clinical pathway protocol [facility] Start: 11-21-2022 Measuring intake and output [facility] Start: 11-21-2022 Elevation of head of bed [facility] Start: 11-21-2022 Admission procedure [facility] Start: 11-21-2022 [facility] Start: 06-18-2022 Colonoscopy w/biopsy single/multiple COLONOSCOPY AND BIOPSY [facility] Start: 06-18-2022 Patient discharge [facility] Start: 05-02-2022 [facility] Start: 04-30-2022 Patient discharge [facility] Start: 04-29-2022 Wound care [facility] Start: 04-29-2022 Application of intermittent pneumatic compression device [facility] Start: 04-29-2022 Consultation for treatment [facility] Start: 04-29-2022 [facility] Start: 04-28-2022 Following clinical pathway protocol [facility] Start: 04-28-2022 Referral to general surgeon [facility] Start: 04-28-2022 Referral to service [facility] Start: 04-28-2022 Admission procedure [facility] Start: 04-28-2022 Assessment of risk of venous thromboembolism [facility] Start: 04-28-2022 Bedrest [facility] Start: 04-28-2022 Incentive spirometry [facility] Start: 04-28-2022 Measuring intake and output [facility] Start: 04-28-2022 Taking patient vital signs [facility] Start: 04-28-2022 Verification routine [facility] Start: 04-28-2022 Anesthesia on bony pelvis ANESTH PELVIS SURGERY [facility] Start: 04-28-2022 Exc ischial pr ulcer w/ostc musc/myoq flap/skin REMOVE HIP PRESSURE SORE [facility] Start: 04-28-2022 Patient referral to dietitian [facility] Start: 02-08-2022 Referral for further care [facility] Start: 2016 RSV Immunization aged 60 or older (1 - 1-dose 60+ series) RSV Immunization aged 60 or older (1 - 1-dose 60+ series) [facility] Start: 2016 RSV Immunization for Adults (1 - Risk 60-74 years 1-dose series) RSV Immunization for Adults (1 - Risk 60-74 years 1-dose series) [facility] Start: 03-17-2015 Pneumococcal Vaccine: 50+ Years (2 of 2 - PPSV23) Pneumococcal Vaccine: 50+ Years (2 of 2 - PPSV23) [facility] Start: 03-17-2015 Pneumococcal Vaccine: 65+ Years (2 of 2 - PPSV23 or PCV20) Pneumococcal Vaccine: 65+ Years (2 of 2 - PPSV23 or PCV20) [facility] Start: 2006 Zoster Vaccines (1 of 2) Zoster Vaccines (1 of 2) [facility] Start: 08-17-1975 DTaP/Tdap/Td Vaccines (1 - Tdap) DTaP/Tdap/Td Vaccines (1 - Tdap) [facility] Start: 1974 Diabetes mellitus screening Diabetes Screening [facility] Start: 1974 Hepatitis C screening Hepatitis C Screening [facility] Start: 1968 Depression Screening Depression Screening [facility] Start: 1956 Lipid panel Lipid Panel [facility] Start: 1956 Screening for malignant neoplasm of colon [facility] Start: 1956 Thyroid stimulating hormone measurement TSH Level [facility] Anaerobic Culture Anaerobic Culture [facility] Anaerobic microbial culture Anaerobic Cul ture [facility] Bacteria identified in Unspecified specimen by Anaerobe culture [facility] Cardiac event recording [facility] Electrocardiographic procedure [facility] Microbial culture, routine Wound Culture [facility] Microbial culture, routine Wound Culture [facility] MR Thoracic spine [facility] Patient Education [facility] Work Phone: Patient referral [facility] Work Phone: Urine culture [facility] XR Thoracic spine Views [facility] Immunizations Immunization Date Immunization Notes Care Provider Kandy moralez 01-18-2025 influenza, high dose seasonal, preservative-free Dr. Brian Cardona MD [facility] 12-23-2023 influenza virus vaccine, unspecified formulation Felipa Santos RN [facility] 01-23-2023 influenza, injectabl e, quadrivalent, preservative free Cristy Bearden PA Work Phone: [facility] 01-23-2023 influenza virus vaccine, unspecified formulation Rikki Casas MD Work Phone: [facility] 01-31-2022 Influenza High-Dose Quadrivalent Cristy Bearden PA Work Phone: [facility] 01-31-2022 Influenza, high dose seasonal Cristy Bearden PA Work Phone: [facility] 01-31-2022 influenza, high dose seasonal, preservative-free 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 Kemi Ramiro RESEARCH & ANALYTICS MANAGER Work Phone: [facility] 01-22-2022 Covid Moderna Bivale nt Booster Cristy Bearden PA Work Phone: [facility] 09-11-2020 Covid (Moderna) 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 Kemi Raimro RESEARCH & ANALYTICS MANAGER Work Phone: [facility] 08-14-2020 Covid (Moderna) 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 Kemi Ramiro RESEARCH & ANALYTICS MANAGER Work Phone: [facility] 04-07-2020 influenza, injectabl e, quadrivalent, preservative free 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 Kemi Ramiro RESEARCH & ANALYTICS MANAGER Work Phone: [facility] 04-07-2020 influenza, seasonal, injectable 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 Kemi Ramiro RESEARCH & ANALYTICS MANAGER Work Phone: [facility] 04-07-2020 Seasonal, quadrivale nt, recombinant, injectable influenza vaccine, preservative free Cristy Bearden PA Work Phone: [facility] 02-02-2019 influenza, injectabl e, quadrivalent, preservative free 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 Kemi Ramiro RESEARCH & ANALYTICS MANAGER Work Phone: [facility] 02-02-2019 influenza, seasonal, injectable 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 Kemi Ramiro RESEARCH & ANALYTICS MANAGER Work Phone: [facility] 04-04-2018 Influenza, injectabl e, Madin Gissel Canine Kidney, preservative free, quadrivalent 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 Kemi Ramiro RESEARCH & ANALYTICS MANAGER Work Phone: [facility] Payers Date Payer Category Payer Unknown [id number] 2024 Private Health Insurance [id number] 2024 Private Health Insurance [id number] 2023 Medicare [id number] 2023 Self-pay [id number] 2023 Unknown [id number] 2023 [employer] polanco [employer] - O RENETTA DECKER Member Subscriber Plan / Payer (Effective 2023-Present) Name: Jorge Covington Relation to Subscriber: Spouse Name: KASSANDRA COVINGTON Date of : 1955 Address: [address] [place] [address] Payer ID: [id number] (NAIC) Type: Commercial Address: [address] [place] [id number] 2023 Unknown RENETTA REECE S RENETTA DECKER [id number] 2023-Present [address] [place] [id number] Commercial [id number]. [id number] 1986 Medicare [id number]. 1.13.680.2. [id number] 1955 Unknown [id number] 2.16.840.1.772831.3.579.2. 278 Unknown [id number] 2.16.840.1.850735.3.579.2. 462 Unknown [id number] 2.16.840.1.256959.3.579.2. 462 Unknown [id number] 2.16.840.1.386694.3.579.2. 462 Unknown [id number] 2.16.840.1.298942.3.579.2. 462 Unknown [id number] 2.16.840.1.170826.3.579.2. 462 Unknown [id number] 2.16.840.1.571942.3.579.2. 462 Unknown [id number] 2.16.840.1.346617.3.579.2. 462 Unknown [id number] 2.16.840.1.683027.3.579.2. 462 Unknown [id number] 2.16.840.1.197115.3.579.2. 462 Unknown [id number] 2.16.840.1.016492.3.579.2. 462 Unknown [id number] 2.16.840.1.768444.3.579.2. 462 Unknown [id number] 2.16.840.1.485180.3.579.2. 462 Unknown [id number] 2.16.840.1.754352.3.579.2. 462 Unknown [id number] 2.16.840.1.345312.3.579.2. 462 Unknown [id number] 2.16.840.1.291699.3.579.2. 462 Unknown [id number] 2.16.840.1.335339.3.579.2. 462 Unknown [id number] 2.16.840.1.418479.3.579.2. 462 Unknown [id number] 2.16.840.1.107704.3.579.2. 462 Unknown [id number] 2.840.1.183133.3.579.2. 462 Unknown [id number] 2.840.1.634159.3.579.2. 462 Unknown [id number] 2.840.1.567496.3.579.2. 462 Unknown [id number] 2.840.1.070815.3.579.2. 462 Unknown [id number] 2.840.1.968024.3.579.2. 462 Unknown [id number] 2.840.1.824501.3.579.2. 462 Unknown [id number] 2.840.1.265849.3.579.2. 462 Unknown [id number] 2.840.1.276560.3.579.2. 462 Unknown [id number] .840.1.088911.3.579.2. 462 Unknown [id number] .840.1.879356.3.579.2. 462 Unknown [id number] 2.840.1.270794.3.579.2. 462 Unknown [id number] 2.840.1.631203.3.579.2. 462 Unknown [id number] 2.840.1.596236.3.579.2. 462 Unknown [id number] .840.1.603926.3.579.2. 462 Unknown [id number] 2.840.1.407696.3.579.2. 462 Unknown [id number] 2.840.1.651308.3.579.2. 462 Unknown [id number] 2.840.1.402858.3.579.2. 462 Unknown [id number] 2.16.840.1.679356.3.579.2. 462 Unknown [id number] 2.16.840.1.185001.3.579.2. 462 Unknown [id number] 2.16.840.1.809943.3.579.2. 462 Unknown [id number] 2.16.840.1.221962.3.579.2. 462 Unknown [id number] 2.16.840.1.519817.3.579.2. 462 Unknown [id number] 2.16.840.1.615008.3.579.2. 462 Unknown [id number] 2.16840.1.413526.3.579.2. 462 Unknown [id number] 2.16.840.1.157007.3.579.2. 462 Unknown [id number] 2.840.1.818108.3.579.2. 462 Unknown [id number] 2.840.1.142155.3.579.2. 462 Unknown [id number] 2.840.1.360517.3.579.2. 462 Unknown [id number] 2.16840.1.349259.3.579.2. 462 Unknown [id number] 2.16.840.1.953850.3.579.2. 462 Unknown [id number] 2.840.1.024774.3.579.2. 462 Unknown [id number] 2.840.1.392684.3.579.2. 462 Unknown [id number] 2.840.1.998032.3.579.2. 462 Unknown [id number] 2.16840.1.599518.3.579.2. 462 Unknown [id number] 2.840.1.325080.3.579.2. 462 Social History Date Type Detail Facility Start: 02-08-2022 End: 07-02-2023 Tobacco smoking status [facility] Unknown if ever smoked [facility] Start: 1955 Sex Assigned At Male [facility] Start: 1955 Sex Assigned At Not on file [facility] Gender identity Not on file [facility] Start: 10-28-2021 End: 08-02-2024 Sex Male (finding) [facility] Start: 06-09-2024 End: 01-19-2025 Tobacco smoking status NHIS Ex-smoker (finding) [facility] Medical Equipment Procedure Code Equipment Code Equipment Origin al Text Equipment Identifier Dates Laparoscopic creation of end colostomy [id number] FDA Start: 11-21-2022 Laparoscopic creation of end colostomy ()[id number] FDA Start: 11-21-2022 Goals Date Patient Goal Desired Activity /State Functional Status Date Assessment Result Facility 01-20-2025 Functional status Dependent/Unable [facility] Work Phone: 08-01-2024 Functional status Bedrest [facility] Work Phone: 06-12-2024 Functional status Bedrest [facility] Work Phone: 11-24-2022 [facility] Work Phone: 04-30-2022 Functional status Ambulates;Assist with U rinal [facility] Work Phone: 04-30-2022 Functional status Assistive Devices Wheel chair [facility] Work Phone: 04-29-2022 Functional status Bedrest [facility] Work Phone: Mental Status Date Assessment Result Facility 01-20-2025 Cognitive function Voice/Name [facility] Work Phone: 08-07-2024 Cognitive function Awake;Alert;Appropriat e [facility] Work Phone: 08-02-2024 Cognitive function Awake;Alert;A ppropriate;Follow s Commands [facility] Work Phone: 08-01-2024 Cognitive function Cooperative [facility] Work Phone: 08-01-2024 Cognitive function Voice/Name [facility] Work Phone: 06-12-2024 Cognitive function Voice/Name [facility] Work Phone: 11-24-2022 Cognitive function Voice/Name [facility] Work Phone: 06-18-2022 Cognitive function Voice/Name [facility] Work Phone: 06-18-2022 Cognitive function Patient Orien tation Person;Place;Time [facility] Work Phone: 04-30-2022 Cognitive function Voice/Name [facility] Work Phone: 04-29-2022 Cognitive function Level Of Cons ciousness Awake;Alert;Appropriate;Follow s Commands [facility] Work Phone: 04-29-2022 Cognitive function Voice/Name [facility] Work Phone: Clinical Notes 05-26-2020 to 01-20-2025 Note Date & Type Note Facility 01-20-2025 Note [facility] 01-17-2025 Discharge summary [facility] 01-17-2025 Radiology Diagnostic study note [facility] Imaging Services [address] [place] [address] Chest PA and Lateral MR#: [id number] Acct: [id number] Name: JORGE COVINGTON Rep #: [id number] : 1955 M 69 From: Eric Ocampo MD PCP: Dr. Brian Cardona MD Status: PA E ER Study:Chest PA and Lateral Date of Exam: 01/17/25 Exam# [id number] Ordering Dr: Adri Saavedra MD PROCEDURE: CHEST PA AND LATERAL 01/17/2025 REASON FOR EXAM: TACHYPNEA AND SHORTNESS OF BREATH TECHNIQUE: Procedure Code: RADCXR Modality: DX Procedure: CHEST PA AND LATERAL COMPARISON: Prior study dated August 07, 2024. FINDINGS: Hardware: EKG electrodes are seen. Heart: Heart size is upper limits of normal. Mediastinum: The mediastinal contour is unremarkable. Lungs: Blunting of both costophrenic angles with mild increased markings at the lung bases suggestive of bibasilar atelectasis. Bones: Dextroconvex scoliosis. RAD/Chest PA and Lateral IMPRESSION: Blunting of both costophrenic angles with the increased markings at the lung bases suggestive of bibasilar atelectasis. Reading Location: [place] [address] CC: Dr. Brian Cardona MD; Dr. Hebert Saavedra MD ~ Dental Financial Coordinator: Signed [facility] 11-14-2024 Progress note Note Date/Time November 14, 2024 4:59pm [facility] [address] [place] [address] Progress Note - Wound Care 11/14/24 1655 MR#: [id number] Acct: [id number] Name: JORGE COVINGTON Rep #:[id number] : 1955 69 From: Luca Nayak MD PCP: Dr. Brian Cardona MD Status:RE G RCR Location: History of Present Illness Date of Service: 11/14/24 Chief Complaint: Right ischial pressure sore, Stage [...] seen by ID on 11/04/23. Subjective Subjective 03 October 2024: The patient is a 69-year-old male presenting with wound healing issues. The wound has been problematic, with the patient experiencing pain and difficulty with previous wound vac therapy due to its tendency to dislodge. Currently, the wound is being managed with saline dressings, which appear to be promoting healing as granulation tissue is present. The patient also reports experiencing hallucinations, such as seeing animals that are not present. These hallucinations may be related to the antibiotics being taken for infection control. Attestation: Documentation on this patient encounter was supported using ambient scribe technology/ voice AI technology. The patient consented to recording for the purpose of documenting the encounter. Provider reviewed content of the generatednote prior to signature. Current encounter, 14 November 2024: is having trouble at home with the patient as he is having intermittent delirium at night. He has had several UTIs and has been in the hospital over the past year. She has been doing excellent wound care to the ischial wound. Concerns for infection at. Objective Data Objective Data Vital Signs: Vital Signs Temp Pulse Resp BP 97.4 F L 81 16 147/97 H 11/14/24 15:33 11/14/24 15:33 11/14/24 15:33 11/14/24 15:33 Charges/Coding Visit Charges Office Visits / Consults: 93844 OV L3 Est 20min Physical Exam Narrative Persistent right ischial wound Wound examination reveals no fluid collections and presence of granulation tissue. No drainage. Surrounding skin appears healthy Measured 3 x 3 cm and 3 cm deep (down to muscle). No exposed bone at the base, all granulated. Const alert and oriented x3 General Appearance: cooperative Resp normal respiratory effort GI GI Narrative: Diverting ostomy is present and is productive Debridement Note Debridement Note No debridement was completed: No debridement was completed today Post-Debridement Measurements and Additional Note: Post-Debridement Measurements/Treatment - Nurse 1 - General Ulcer Assessment Start: 11/14/24 15:23 Freq: Status: Active Protocol: KIRA Activity Type Activity Date Activity User E-sign Co-sign Detail Recorded Client Recorded Date Recorded By Document 11/14/24 15:33 DL [id number] 11/14/24 15:38 DL 11/14/24 15:33 - Today's Visit Information Type of service Follow-up Visit (Physician/PRODUCTION INSPECTOR ) Arrival Mode Wheelchair Transfer Assistance Billy Lift Transfer Assist (Other) x2 Patient Identification Verified (Name & Yes ) Patient Requires Transmission-Based No Precautions Vital Signs Temperature (97.8 F-99.1 F) 97.4 F L Temperature Source Temporal Pulse Rate (60-100) 81 Pulse Location Monitor Respiratory Rate (12-18) 16 Respiratory rate source Observation Blood Pressure (90/60-120/80) 147/97 H Blood Pressure Mean (mm Hg) 113 Source Monitor History Since Last Visit- (Skip [...] Nurse 1 - General Ulcer Measurement Start: 11/14/24 15:23 Freq: Status: Active Protocol: Activity Type Activity Date Activity User E-sign Co-sign Detail Recorded Client Recorded Date Recorded By Document 11/14/24 15:33 DL [id number] 11/14/24 15:38 DL 11/14/24 15:33 Wound Center Nurse 1 #5- R ischium Post op -Current Size (cm) - Length 3 -Current Size (cm) - Width 1.5 -Current Size (cm) - Depth 6 -Total Square Cm 4.5 -Exudate Amt Medium -Exudate Type Serosanguineous -Wound [...] 2 - General Ulcer CM Notes Start: 11/14/24 15:23 Freq: Status: Active Protocol: Activity Type Activity Date Activity User E-sign Co-sign Detail Recorded Client Recorded Date Recorded By Document 11/14/24 16:01 [id number] 11/14/24 16:04 11/14/24 16:01 Wound Center Nurse 2 -Time 16:01 -Correct Patient Yes -Correct Side, Site, Position Yes -Correct Procedure No -Procedure Performed No -Tunneling No -Undermining/Tunneling No -Circular Undermining No -Wound/Ulcer Outcome Not Healed -Ulcer Cleansing Not Cleansed -Foul Odor after Cleansing No -Bioengineered Tissue No -Bleeding Controlled with NA -Offloading No Pain Scale: 0-10 Numeric Is Patient Pain Free? Yes WC - Nurse 3 - General Ulcer D/C NN Start: 11/14/24 15:23 Freq: Status: Active Protocol: Activity Type Activity Date Activity User E-sign Co-sign Detail Recorded Client Recorded Date Recorded By Document 11/14/24 16:20 DL [id number] 11/14/24 16:22 DL 11/14/24 16:20 Wound Care Center Nurse 3 #5- R ischium Post op -Ulcer Cleansing Rinsed/ Irrigated with Saline -Foul Odor after Cleansing No -Other Dressing saline moistened gauze -Primary Dressing Covered/Secured with Dry Gauze, Secured with Tape -Other Covering ABD -Wound Comment(s) Dressing applied per Mark Elder today. Treatment Response Procedure Tolerated Well Pain Scale: 0-10 Numeric Is Patient Pain Free? Yes WC - Visit Discharge Discharge Condition Stable Ambulatory Status Wheelchair Transportation Private Auto Facility Type Home Health Orders Sent Yes Assessment/Plan Assessment/Plan (1) Decubitus ulcer of right buttock, stage 3: CODE(S): L89.313 - Pressure ulcer of right buttock, stage 3 PLAN: Assessment and Plan The 69-year-old male with a history of wound healing issues presents with ongoing management challenges. The wound is currently being treated with saline dressings, which have shown improvement with granulation tissue formation, indicating healing from the inside out. 1. Wound Healing Issues The plan is to continue with saline dressings twice daily to promote healing, asthey have been effective in forming granulation tissue. A follow-up wound check is scheduled in six weeks to assess progress and determine if additional supplies are needed. Per discussion with patient and his , patient is not a flap candidate. We will continue wound care. F/u in 6 weeks I talked to Mrs. Covington about help at home with caregiving. I talked her aboutthe challenges of trying to take care of a person by herself. I think it might be reasonable for them to consider inpatient low intensity rehab for the patient. She is not interested in that at this time. They would like to follow-up in 6 weeks for wound check. PLAN: Plan - Continue saline dressings twice daily to aid wound healing. - Monitor for any changes in hallucinations and report them to the healthcare provider. - Attend the follow-up wound check in six weeks. 11/14/24 0696 <Electronically signed by Luca Nayak MD> Cosigner Signature (if applicable): CC: ~ Signed [facility] Work Phone: 1(751) 970-693908-18-[address] [facility] [address] [place] [address] Progress Note - Wound Care 11/14/24 1655 MR#: [id number] Acct: [id number] Name: JORGE COVINGTON Rep #:[id number] : 1955 69 From: Luca Nayak MD PCP: Dr. Brian Cardona MD Status:RE G RCR Location: History of Present Illness Date of Service: 11/14/24 Chief Complaint: Right ischial pressure sore, Stage [...] seen by ID on 11/04/23. Subjective Subjective 03 October 2024: The patient is a 69-year-old male presenting with wound healing issues. The wound has been problematic, with the patient experiencing pain and difficulty with previous wound vac therapy due to its tendency to dislodge. Currently, the wound is being managed with saline dressings, which appear to be promoting healing as granulation tissue is present. The patient also reports experiencing hallucinations, such as seeing animals that are not present. These hallucinations may be related to the antibiotics being taken for infection control. Attestation: Documentation on this patient encounter was supported using ambient scribe technology/ voice AI technology. The patient consented to recording for the purpose of documenting the encounter. Provider reviewed content of the generatednote prior to signature. Current encounter, 14 November 2024: is having trouble at home with the patient as he is having intermittent delirium at night. He has had several UTIs and has been in the hospital over the past year. She has been doing excellent wound care to the ischial wound. Concerns for infection at. Objective Data Objective Data Vital Signs: Vital Signs Temp Pulse Resp BP 97.4 F L 81 16 147/97 H 11/14/24 15:33 11/14/24 15:33 11/14/24 15:33 11/14/24 15:33 Charges/Coding Visit Charges Office Visits / Consults: 53497 OV L3 Est 20min Physical Exam Narrative Persistent right ischial wound Wound examination reveals no fluid collections and presence of granulation tissue. No drainage. Surrounding skin appears healthy Measured 3 x 3 cm and 3 cm deep (down to muscle). No exposed bone at the base, all granulated. Const alert and oriented x3 General Appearance: cooperative Resp normal respiratory effort GI GI Narrative: Diverting ostomy is present and is productive Debridement Note Debridement Note No debridement was completed: No debridement was completed today Post-Debridement Measurements and Additional Note: Post-Debridement Measurements/Treatment WC - Nurse 1 - General Ulcer Assessment Start: 11/14/24 15:23 Freq: Status: Active Protocol: KIRA Activity Type Activity Date Activity User E-sign Co-sign Detail Recorded Client Recorded Date Recorded By Document 11/14/24 15:33 DL [id number] 11/14/24 15:38 DL 11/14/24 15:33 WC - Today's Visit Information Type of service Follow-up Visit (Physician/PRODUCTION INSPECTOR ) Arrival Mode Wheelchair Transfer Assistance Billy Lift Transfer Assist (Other) x2 Patient Identification Verified (Name & Yes ) Patient Requires Transmission-Based No Precautions Vital Signs Temperature (97.8 F-99.1 F) 97.4 F L Temperature Source Temporal Pulse Rate (60-100) 81 Pulse Location Monitor Respiratory Rate (12-18) 16 Respiratory rate source Observation Blood Pressure (90/60-120/80) 147/97 H Blood Pressure Mean (mm Hg) 113 Source Monitor History Since Last Visit- (Skip [...] Nurse 1 - General Ulcer Measurement Start: 11/14/24 15:23 Freq: Status: Active Protocol: Activity Type Activity Date Activity User E-sign Co-sign Detail Recorded Client Recorded Date Recorded By Document 11/14/24 15:33 DL [id number] 11/14/24 15:38 DL 11/14/24 15:33 Wound Center Nurse 1 #5- R ischium Post op -Current Size (cm) - Length 3 -Current Size (cm) - Width 1.5 -Current Size (cm) - Depth 6 -Total Square Cm 4.5 -Exudate Amt Medium -Exudate Type Serosanguineous -Wound [...] 2 - General Ulcer CM Notes Start: 11/14/24 15:23 Freq: Status: Active Protocol: Activity Type Activity Date Activity User E-sign Co-sign Detail Recorded Client Recorded Date Recorded By Document 11/14/24 16:01 [id number] 11/14/24 16:04 11/14/24 16:01 Wound Center Nurse 2 -Time 16:01 -Correct Patient Yes -Correct Side, Site, Position Yes -Correct Procedure No -Procedure Performed No -Tunneling No -Undermining/Tunneling No -Circular Undermining No -Wound/Ulcer Outcome Not Healed -Ulcer Cleansing Not Cleansed -Foul Odor after Cleansing No -Bioengineered Tissue No -Bleeding Controlled with NA -Offloading No Pain Scale: 0-10 Numeric Is Patient Pain Free? Yes - Nurse 3 - General Ulcer D/C NN Start: 11/14/24 15:23 Freq: Status: Active Protocol: Activity Type Activity Date Activity User E-sign Co-sign Detail Recorded Client Recorded Date Recorded By Document 11/14/24 16:20 DL [id number] 11/14/24 16:22 DL 11/14/24 16:20 Wound Care Center Nurse 3 #5- R ischium Post op -Ulcer Cleansing Rinsed/ Irrigated with Saline -Foul Odor after Cleansing No -Other Dressing saline moistened gauze -Primary Dressing Covered/Secured with Dry Gauze, Secured with Tape -Other Covering ABD -Wound Comment(s) Dressing applied per Mark Elder today. Treatment Response Procedure Tolerated Well Pain Scale: 0-10 Numeric Is Patient Pain Free? Yes WC - Visit Discharge Discharge Condition Stable Ambulatory Status Wheelchair Transportation Private Auto Facility Type Home Health Orders Sent Yes Assessment/Plan Assessment/Plan (1) Decubitus ulcer of right buttock, stage 3: CODE(S): L89.313 - Pressure ulcer of right buttock, stage 3 PLAN: Assessment and Plan The 69-year-old male with a history of wound healing issues presents with ongoing management challenges. The wound is currently being treated with saline dressings, which have shown improvement with granulation tissue formation, indicating healing from the inside out. 1. Wound Healing Issues The plan is to continue with saline dressings twice daily to promote healing, asthey have been effective in forming granulation tissue. A follow-up wound check is scheduled in six weeks to assess progress and determine if additional supplies are needed. Per discussion with patient and his , patient is not a flap candidate. We will continue wound care. F/u in 6 weeks I talked to Mrs. Covington about help at home with caregiving. I talked her aboutthe challenges of trying to take care of a person by herself. I think it might be reasonable for them to consider inpatient low intensity rehab for the patient. She is not interested in that at this time. They would liketo follow-up in 6 weeks for wound check. PLAN: Plan - Continue saline dressings twice daily to aid wound healing. - Monitor for any changes in hallucinations and report them to the healthcare provider. - Attend the follow-up wound check in six weeks. 11/14/24 2203 Cosigner Signature (if applicable): CC: ~ Signed [facility]08-04-2025 Evaluation note* Diagnosis Onset Date Resolution Status Admit Date Scoliosis inactive October 31 8:59am Thoracic myelopathy noneactive Augus t 2024 8:59am Cervical myelopathy noneactive Augus t 2024 8:59am Decubitus ulcer of right buttock, stage 3 acute November 14 2:57pm Decubitus ulcer of right buttock, stage 3 acute December 26, 2024 2:59pm Acidosis, lactic resolved January 17, 2025 12:26pm Acute delirium resolved January 172024 12:26pm Complicated urinary tract infection resolved January 17 12:26pm Goals of care, counseling/discussion resolved January 172024 12:26pm Metabolic encephalopathy resolved January 17, 2025 12:26pm Palliative care encounter resolved January 17, 2025 12:26pm Sepsis resolved January 17, 2025 12:26pm Bedridden inactive January 17, 2025 12:26pm Scoliosis inactive January 17, 2025 12:26pm Urinary tract infection inactive O ctober 2024 12:26pm [facility] Work Phone: 1(465) 901-274907-08-2025 Progress note Author Luca Nayak [facility] Note Date/Time October 04, 2024 1:51p m [facility] [address] [place] [address] Progress Note - Wound Care 10/04/24 1348 MR#: [id number] Acct: [id number] Name: JORGE COVINGTON Rep #:[id number] : 1955 69 From: Luca Nayak MD PCP: Dr. Brina Cardona MD Status:RE G RCR Location: History of Present Illness Date of Service: 10/03/24 Chief Complaint: Right ischial pressure sore, Stage [...] seen by ID on 11/04/23. Subjective Subjective Current encounter, 03 October 2024: The patient is a 69-year-old male presenting with wound healing issues. The wound has been problematic, with the patient experiencing pain and difficulty with previous wound vac therapy due to its tendency to dislodge. Currently, the wound is being managed with saline dressings, which appear to be promoting healing as granulation tissue is present. The patient also reports experiencing hallucinations, such as seeing animals that are not present. These hallucinations may be related to the antibiotics being taken for infection control. Attestation: Documentation on this patient encounter was supported using ambient scribe technology/ voice AI technology. The patient consented to recording for the purpose of documenting the encounter. Provider reviewed content of the generatednote prior to signature. Objective Data Objective Data Vital Signs: Vital Signs Temp Pulse Resp BP 97.3 F L 86 18 127/84 H 10/03/24 16:03 10/03/24 16:03 10/03/24 16:03 10/03/24 16:03 Weight: 222 lb 3.615 oz Charges/Coding Visit Charges Office Visits / Consults: 31168 OV L3 Est 20min Physical Exam Narrative Persistent right ischial wound Wound examination reveals no fluid collections and presence of granulation tissue. Surrounding skin appears healthy Measured 4 x 3 cm and 3 cm deep (down to muscle). No exposed bone at the base, all granulated. Const alert and oriented x3 General Appearance: cooperative Resp normal respiratory effort GI GI Narrative: Diverting ostomy is present and is productive Debridement Note Debridement Note Post-Debridement Measurements and Additional Note: Post-Debridement Measurements/Treatment - Nurse 1 - General Ulcer Assessment Start: 10/03/24 16:03 Freq: Status: Active Protocol: KIRA Activity Type Activity Date Activity User E-sign Co-sign Detail Recorded Client Recorded Date Recorded By Document 10/03/24 16:03 DL [id number] 10/03/24 16:08 DL 10/03/24 16:03 - Today's Visit Information Type of service Follow-up Visit (Physician/PRODUCTION INSPECTOR ) Arrival Mode Wheelchair Transfer Assistance Billy Lift Patient Identification Verified (Name & Yes ) Patient Requires Transmission-Based No Precautions Vital Signs Temperature (97.8 F-99.1 F) 97.3 F L Temperature Source Temporal Pulse Rate (60-100) 86 Pulse Location Monitor Respiratory Rate (12-18) 18 Respiratory rate source Observation Blood Pressure (90/60-120/80) 127/84 H Blood Pressure Mean (mm Hg) 98 Source Monitor History Since Last Visit- (Skip [...] visit? Has dressing in place as prescribed No Has compression in place as prescribed N/A Has offloadiing in place as prescribed Yes Experienced any changes in pain level or No management Pain Scale: 0-10 Numeric Is Patient Pain Free? Yes - Nurse 1 - General Ulcer Measurement Start: 10/03/24 16:03 Freq: Status: Active Protocol: Activity Type Activity Date Activity User E-sign Co-sign Detail Recorded Client Recorded Date Recorded By Document 10/03/24 16:03 DL [id number] 10/03/24 16:08 DL 10/03/24 16:03 Wound Center Nurse 1 #5- R ischium Post op -Current Size (cm) - Length 0.1 -Current Size (cm) - Width 0.1 -Current Size (cm) - Depth 0.1 -Total Square Cm 0.01 -Exudate Amt Medium -Exudate Type Serosanguineous -Wound [...] 2 - General Ulcer CM Notes Start: 10/03/24 16:03 Freq: Status: Active Protocol: Activity Type Activity Date Activity User E-sign Co-sign Detail Recorded Client Recorded Date Recorded By Document 10/03/24 16:10 DS [id number] 10/03/24 16:12 DS 10/03/24 16:10 Wound Center Nurse 2 -Time 16:10 -Correct Patient Yes -Correct Side, Site, Position Yes -Procedure Performed No -Post Debridement (cm) - Length 2.5 -Post Debridement (cm) - Width 2.5 -Post Debridement (cm) - Depth 4.0 -Total Square (Post) (cm) 6.25 -Area of Debridement (cm) - Length 2.5 -Area of Debridement (cm) - Width 2.5 -Total Square (Area) (cm) 6.25 -Wound/Ulcer Outcome Not Healed Pain Scale: 0-10 Numeric Is Patient Pain Free? Yes - Nurse 3 - General Ulcer D/C NN Start: 10/03/24 16:03 Freq: Status: Active Protocol: Activity Type Activity Date Activity User E-sign Co-sign Detail Recorded Client Recorded Date Recorded By Document 10/03/24 16:29 KW [id number] 10/03/24 16:29 KW 10/03/24 16:29 Wound Care Center Nurse 3 #5- R ischium Post op -Other Dressing NS WET TO DRY -Primary Dressing Covered/Secured with Dry Gauze, Secured with Tape Pain Scale: 0-10 Numeric Is Patient Pain Free? Yes WC - Visit Discharge Discharge Condition Stable Ambulatory Status Wheelchair Transportation Private Auto Medication Reconcilliation completed & No provided to patient/care provider Clinical Summary of Care Provided Yes Assessment/Plan Assessment/Plan (1) Decubitus ulcer of right buttock, stage 3: CODE(S): L89.313 - Pressure ulcer of right buttock, stage 3 PLAN: Assessment and Plan The 69-year-old male with a history of wound healing issues presents with ongoing management challenges. The wound is currently being treated with saline dressings, which have shown improvement with granulation tissue formation, indicating healing from the inside out. 1. Wound Healing Issues The plan is to continue with saline dressings twice daily to promote healing, asthey have been effective in forming granulation tissue. A follow-up wound check is scheduled in six weeks to assess progress and determine if additional supplies are needed. Per discussion with patient and his , patient is not a flap candidate. We will continue wound care. F/u in 6 weeks PLAN: Plan - Continue saline dressings twice daily to aid wound healing. - Monitor for any changes in hallucinations and report them to the healthcare provider. - Attend the follow-up wound check in six weeks. 10/04/24 1351 <Electronically signed by Luca Nayak MD> Cosigner Signature (if applicable): CC: ~ Signed [facility] Work Phone: 1(381) 639-507307-08-2025 Progress note [facility] [address] [place] [address] Progress Note - Wound Care 10/04/24 1348 MR#: [id number] Acct: [id number] Name: JORGE COVINGTON Rep #:[id number] : 1955 69 From: Luca Nayak MD PCP: Dr. Brian Cardona MD Status:RE G RCR Location: History of Present Illness Date of Service: 10/03/24 Chief Complaint: Right ischial pressure sore, Stage [...] seen by ID on 11/04/23. Subjective Subjective Current encounter, 03 October 2024: The patient is a 69-year-old male presenting with wound healing issues. The wound has been problematic, with the patient experiencing pain and difficulty with previous wound vac therapy due to its tendency to dislodge. Currently, the wound is being managed with saline dressings, which appear to be promoting healing as granulation tissue is present. The patient also reports experiencing hallucinations, such as seeing animals that are not present. These hallucinations may be related to the antibiotics being taken for infection control. Attestation: Documentation on this patient encounter was supported using ambient scribe technology/ voice AI technology. The patient consented to recording for the purpose of documenting the encounter. Provider reviewed content of the generatednote prior to signature. Objective Data Objective Data Vital Signs: Vital Signs Temp Pulse Resp BP 97.3 F L 86 18 127/84 H 10/03/24 16:03 10/03/24 16:03 10/03/24 16:03 10/03/24 16:03 Weight: 222 lb 3.615 oz Charges/Coding Visit Charges Office Visits / Consults: 67298 OV L3 Est 20min Physical Exam Narrative Persistent right ischial wound Wound examination reveals no fluid collections and presence of granulation tissue. Surrounding skin appears healthy Measured 4 x 3 cm and 3 cm deep (down to muscle). No exposed bone at the base, all granulated. Const alert and oriented x3 General Appearance: cooperative Resp normal respiratory effort GI GI Narrative: Diverting ostomy is present and is productive Debridement Note Debridement Note Post-Debridement Measurements and Additional Note: Post-Debridement Measurements/Treatment - Nurse 1 - General Ulcer Assessment Start: 10/03/24 16:03 Freq: Status: Active Protocol: KIRA Activity Type Activity Date Activity User E-sign Co-sign Detail Recorded Client Recorded Date Recorded By Document 10/03/24 16:03 DL [id number] 10/03/24 16:08 DL 10/03/24 16:03 - Today's Visit Information Type of service Follow-up Visit (Physician/PRODUCTION INSPECTOR ) Arrival Mode Wheelchair Transfer Assistance Billy Lift Patient Identification Verified (Name & Yes ) Patient Requires Transmission-Based No Precautions Vital Signs Temperature (97.8 F-99.1 F) 97.3 F L Temperature Source Temporal Pulse Rate (60-100) 86 Pulse Location Monitor Respiratory Rate (12-18) 18 Respiratory rate source Observation Blood Pressure (90/60-120/80) 127/84 H Blood Pressure Mean (mm Hg) 98 Source Monitor History Since Last Visit- (Skip [...] visit? Has dressing in place as prescribed No Has compression in place as prescribed N/A Has offloadiing in place as prescribed Yes Experienced any changes in pain level or No management Pain Scale: 0-10 Numeric Is Patient Pain Free? Yes WC - Nurse 1 - General Ulcer Measurement Start: 10/03/24 16:03 Freq: Status: Active Protocol: Activity Type Activity Date Activity User E-sign Co-sign Detail Recorded Client Recorded Date Recorded By Document 10/03/24 16:03 DL [id number] 10/03/24 16:08 DL 10/03/24 16:03 Wound Center Nurse 1 #5- R ischium Post op -Current Size (cm) - Length 0.1 -Current Size (cm) - Width 0.1 -Current Size (cm) - Depth 0.1 -Total Square Cm 0.01 -Exudate Amt Medium -Exudate Type Serosanguineous -Wound [...] 2 - General Ulcer CM Notes Start: 10/03/24 16:03 Freq: Status: Active Protocol: Activity Type Activity Date Activity User E-sign Co-sign Detail Recorded Client Recorded Date Recorded By Document 10/03/24 16:10 DS [id number] 10/03/24 16:12 DS 10/03/24 16:10 Wound Center Nurse 2 -Time 16:10 -Correct Patient Yes -Correct Side, Site, Position Yes -Procedure Performed No -Post Debridement (cm) - Length 2.5 -Post Debridement (cm) - Width 2.5 -Post Debridement (cm) - Depth 4.0 -Total Square (Post) (cm) 6.25 -Area of Debridement (cm) - Length 2.5 -Area of Debridement (cm) - Width 2.5 -Total Square (Area) (cm) 6.25 -Wound/Ulcer Outcome Not Healed Pain Scale: 0-10 Numeric Is Patient Pain Free? Yes WC - Nurse 3 - General Ulcer D/C NN Start: 10/03/24 16:03 Freq: Status: Active Protocol: Activity Type Activity Date Activity User E-sign Co-sign Detail Recorded Client Recorded Date Recorded By Document 10/03/24 16:29 [id number] 10/03/24 16:29 10/03/24 16:29 Wound Care Center Nurse 3 #5- R ischium Post op -Other Dressing NS WET TO DRY -Primary Dressing Covered/Secured with Dry Gauze, Secured with Tape Pain Scale: 0-10 Numeric Is Patient Pain Free? Yes WC - Visit Discharge Discharge Condition Stable Ambulatory Status Wheelchair Transportation Private Auto Medication Reconcilliation completed & No provided to patient/care provider Clinical Summary of Care Provided Yes Assessment/Plan Assessment/Plan (1) Decubitus ulcer of right buttock, stage 3: CODE(S): L89.313 - Pressure ulcer of right buttock, stage 3 PLAN: Assessment and Plan The 69-year-old male with a history of wound healing issues presents with ongoing management challenges. The wound is currently being treated with saline dressings, which have shown improvement with granulation tissue formation, indicating healing from the inside out. 1. Wound Healing Issues The plan is to continue with saline dressings twice daily to promote healing, asthey have been effective in forming granulation tissue. A follow-up wound check is scheduled in six weeks to assess progress and determine if additional supplies are needed. Per discussion with patient and his , patient is not a flap candidate. We will continue wound care. F/u in 6 weeks PLAN: Plan - Continue saline dressings twice daily to aid wound healing. - Monitor for any changes in hallucinations and report them to the healthcare provider. - Attend the follow-up wound check in six weeks. 10/04/24 1351 Cosigner Signature (if applicable): CC: ~ Signed [facility]07-01-2025 Telephone encounter Note* Telephone Encounter - Faith Dong RN - 09/27/2024 11:42 AM EDT Call placed to Jennifer to assess patient symptom concerns. She states the patient has issues withself care and with the chronic SPT she is concerned for infection given the change in mentation andthe cloudy, foul smelling urine. Advised verbal order okay to send for UA C&S and to continue with catheter changes every 4 weeks. Advised an updated order letter can be sent. Fax number given: [phone] chichi Rodriguez. Jennifer asked if a PRN order for nurse visit could also be added so she can go back for the urineto send out. Will have this updated in the letter and sent via fax. [id number] Miscellaneous Notes* Telephone Encounter - Faith Dong RN - 09/27/2024 11:42 AM EDT Call placed to Jennifer to assess patient symptom concerns. She states the patient has issues withself care and with the chronic SPT she is concerned for infection given the change in mentation andthe cloudy, foul smelling urine. Advised verbal order okay to send for UA C&S and to continue with catheter changes every 4 weeks. Advised an updated order letter can be sent. Fax number given: [phone] attention Jennifer. Jennifer asked if a PRN order for nurse visit could also be added so she can go back for the urineto send out. Will have this updated in the letter and sent via fax. * Telephone Encounter - Felipa Santos RN - 09/27/2024 9:57 AM EDT S: nurse Jennifer from [facility] spoke with [facility] nurse regarding urinary symptoms and needs order to continue catheter changes. B: Onset of symptoms/concern began yesterday. A: Nurse called yesterday to report some confusion. Today calling to report patient has cloudy urine, strong odor to urine, some sediment in his suprapubic catheter tubing. Patient does have some baseline confusion, but not this bad, kept asking the same questions. Nurse changed suprapubic catheteryesterday. Nurse needs updated verbal order for continuation to change suprapubic catheter every 4 weeks. Nurse asking if provider would like to order a UA, C&S. Patient does get frequent UTIs. No fever. Vitals all WNL. No back, side, or abdominal pain. R: Please call homecare nurseJennifer, at [phone] with verbal orders for catheter changes and for a UA, C&S, or with other recommendations. No further needs at this time. Reason for Disposition Bad or foul-smelling urine Protocols used: Urinary Sorfnsts-QYCIR-BP documented in this encounterSPomerene [id number] Telephone encounter Note* Telephone Encounter - Felipa Santos RN - 09/27/2024 9:57 AM EDT S: nurse Jennifer from [facility] spoke with [facility] nurse regarding urinary symptoms and needs order to continue catheter changes. B: Onset of symptoms/concern began yesterday. A: Nurse called yesterday to report some confusion. Today calling to report patient has cloudy urine, strong odor to urine, some sediment in his suprapubic catheter tubing. Patient does have some baseline confusion, but not this bad, kept asking the same questions. Nurse changed suprapubic catheteryesterday. Nurse needs updated verbal order for continuation to change suprapubic catheter every 4 weeks. Nurse asking if provider would like to order a UA, C&S. Patient does get frequent UTIs. No fever. Vitals all WNL. No back, side, or abdominal pain. R: Please call homecare nurseJennifer, at [phone] with verbal orders for catheter changes and for a UA, C&S, or with other recommendations. No further needs at this time. Reason for Disposition Bad or foul-smelling urine Protocols used: Urinary Pspxnbxv-YHNYU-KP [facility] [id number] Telephone encounter Note* Telephone Encounter - Saud Souza RN - 09/27/2024 9:28 AM EDT Call placed to Jennifer bad phone connection unable to understand call . Call disconnected [facility] [id number] Miscellaneous Notes* Telephone Encounter - Saud Souza RN - 09/27/2024 9:28 AM EDT Call placed to Jennifer bad phone connection unable to understand call . Call disconnected * Telephone Encounter - Denise Chandler - 09/26/2024 2:05 PM EDT Name of caller: Jennifer Contact phone number: [phone] Relationship to Patient: [facility] Provider: Dr. Casas Practice: Urology Chief Complaint/Reason for Call: Jennifer called advising if provider would like her to do a urinecollection, as this morning there was a strong odder and patient seems more confused than usual. Please call Jennifer back and advise. Best time of day caller can be reached: any Patient advised that office/PCP has 24-48 business hours to return their call: Yes documented in this [facility]06-30-2025 Telephone encounter Note* Telephone Encounter - Denise Chandler - 09/26/2024 2:05 PM EDT Name of caller: Jennifer Contact phone number: [phone] Relationship to Patient: [facility] Provider: Dr. Casas Practice: Urology Chief Complaint/Reason for Call: Jennifer called advising if provider would like her to do a urinecollection, as this morning there was a strong odder and patient seems more confused than usual. Please call Jennifer back and advise. Best time of day caller can be reached: any Patient advised that office/PCP has 24-48 business hours to return their call: Yes [facility] [id number] Evaluation note* Diagnosis Onset Date Resolution Status Admit Date Scoliosis acute September 16 2:45pm Cervical myelopathy inactive September 16, 2024 2:45pm Fusion of spine, cervical region inactive September 16, 2024 2:45pm Thoracic myelopathy inactive September 16, 2024 2:45pm Decubitus ulcer of right buttock, stage 3 acute October 03, 2024 3:20pm Scoliosis acute October 31 8:59am Thoracic myelopathy noneactive Augus t 2024 8:59am Cervical myelopathy noneactive Augus t 2024 8:59am Decubitus ulcer of right buttock, stage 3 acute November 14 2:57pm Decubitus ulcer of right buttock, stage 3 acute December 26, 2024 2:59pm [facility] Work Phone: 1(486) 717-640706-02-2025 Progress note Author Luca [facility] Note Date/Time August 29, 2024 6:25p m [facility] [address] [place] [address] Progress Note - Wound Care 08/29/24 1820 MR#: [id number] Acct: [id number] Name: JORGE COVINGTON Rep #:[id number] : 1955 69 From: Luca Nayak MD PCP: Dr. Brian Cardona MD Status:RE G R Location: History [...] Charges/Coding Visit Charges Office Visits / Consults: 36046 OV L3 Est 20min Physical Exam Narrative [...] Start: 08/29/24 14:49 Freq: Status: Active Protocol: KIRA Activity Type Activity Date Activity User E-sign Co-sign Detail Recorded Client Recorded Date Recorded By Document 08/29/24 14:52 [email or web address] [id number] 08/29/24 15:02 KW 08/29/24 14:52 Height and [...] Recorded Date Recorded By Document 08/29/24 14:52 [id number] 08/29/24 15:02 08/29/24 14:52 Wound Center Nurse [...] Recorded Date Recorded By Document 08/29/24 15:30 [id number] 08/29/24 15:31 08/29/24 15:30 Wound Center Nurse 2 -Correct Patient Yes -Correct Side, Site, Position No -Correct Procedure No -Procedure Performed No -Wound/Ulcer Outcome Not Healed Pain Scale: 0-10 Numeric Is Patient Pain Free? Yes [facility] Nurse 3 - General Ulcer D/C NN Start: 08/29/24 14:49 Freq: Status: Active Protocol: Activity Type Activity Date Activity User E-sign Co-sign Detail Recorded Client Recorded Date Recorded By Document 08/29/24 15:40 [id number] 08/29/24 15:42 08/29/24 15:40 Wound Care Center [...] His has been working on getting the [facility] records about his spine surgery and his prognosis. She states that she was told it was sent and received but nobody in the hospital system has been able to locate his chart. We will continue to try to get these records. Encouraged increased protein intake to help with wound healing. Waiting to hear from the [facility] to see if they can assist them [...] Cosigner Signature (if applicable): CC: ~ Signed [facility] Work Phone: 1(653) 265-279205-11-2025 Discharge summary [facility] Medical Records Department [address] [place] [address] Emergency Department Summary 08/07/24 MR#: [id number] Acct: [id number] Name: JORGE COVINGTON Rep #:[id number] : 1955 68 From: Kit Harris MD PCP: Dr. Brian Cardona MD Status:RE G ER Location: ED [...] pain, vomiting, fevers, headache, focal neurologic deficits. [facility] Medical History Fusion of spine, cervical region [...] of the head to evaluate for acute GROUP LEADER etiologies of his intermittent hallucinations. Ireviewed those [...] and looks very clean, well cared for, statesshe has been watching it and has been [...] (Auto) 65.8 Lymph % (Auto) 17.9 L [place] % (Auto) 9.5 Eos % (Auto) 4.2 [...] Clarity Clear Urine pH 6.5 Ur Specific [place] 1.010 Urine Protein 15 H Urine Glucose [...] 18:30 IMPRESSION: No Acute Findings. Reading Location: [facility] Brain CT 08/07/24 18:31 IMPRESSION: No acute intracranial abnormality. Chronic microvascular ischemic and involutional changes. Other chronic findings as described above. Reading Location: [facility] Rhythm Strip Rhythm Strip: Sinus Rhythm Rate: [...] mg PO DAILY Primary Care Provider: Brian Cardona Referrals: Brian Cardona MD [Primary Care Provider] - Keep [facility] appointment Print Language: Moldovan Disposition Disposition: Home, Self Care What to do if you have Problems For any increased pain, shortness of breath, bleeding, nausea or vomiting, chestpain, or any unexpected problems, contact your Primary Care Provider. Call [facility] ([phone]) or report tothe closest Emergency Room. Call 911 if necessary. 08/07/242058 Cosigner Signature (if applicable): CC: Dr. Brian Cardona MD ~ Signed [facility]05-11-2025 Radiology Diagnostic study note [facility] Imaging Services [address] [place], [place] [address] Chest 1 View (Portable) MR#: [id number] Acct: [id number] Name: JORGE COVINGTON Rep #: [id number] : 1955 M 68 From: Joy Aldana MD PCP: Dr. Brian Cardona MD Status: RE G ER Study:Chest 1 View (Portable) Date of Exam: 08/07/24 Exam# [id number] Ordering Dr: Ramsey Harris MD PROCEDURE: CHEST [...] CC: Dr. Kit Harris MD; Dr. Brian Cardona MD ~ Dental Financial Coordinator: Signed [facility]05-11-2025 Radiology Diagnostic study note [facility] Imaging Services [address] [place] [address] [id number] Brain/Head without Contrast MR#: [id number] Acct: [id number] Name: JORGE COVINGTON Rep #: [id number] : 1955 M 68 From: Joy Aldana MD PCP: Dr. Brian Cardona MD Status: RE G ER Study:Brain/Head without Contrast Date of Exa m: 08/07/24 Exam# [id number] Ordering Dr: Ramsey Harris MD PROCEDURE: BRAIN/HEAD [...] chronic findings as described above. [facility] CC: Dr. Kit Harris MD; Dr. Brian Cardona MD ~ Dental Financial Coordinator: Signed [facility]05-11-2025 Discharge summary Author Kit Harris [facility] Note Date/Time August 07, 2024 8:59p m [facility] Medical Records Department [address] [place] [address] Emergency Department Summary 08/07/24 MR#: [id number] Acct: [id number] Name: JORGE COVINGTON Rep #:[id number] 8 : 1955 68 From: Kit Harris MD PCP: Dr. Brian Cardona MD Status:RE G ER Location: ED [...] pain, vomiting, fevers, headache, focal neurologic deficits. [facility] Medical History Fusion of spine, cervical region [...] of the head to evaluate for acute GROUP LEADER etiologies of his intermittent hallucinations. Ireviewed those [...] (Auto) 65.8 Lymph % (Auto) 17.9 L [place] % (Auto) 9.5 Eos % (Auto) 4.2 [...] Clarity Clear Urine pH 6.5 Ur Specific [place] 1.010 Urine Protein 15 H Urine Glucose [...] 18:30 IMPRESSION: No Acute Findings. Reading Location: [facility] Brain CT 08/07/24 18:31 IMPRESSION: No acute intracranial abnormality. Chronic microvascular ischemic and involutional changes. Other chronic findings as described above. Reading Location: [facility] Rhythm Strip Rhythm Strip: Sinus Rhythm Rate: [...] mg PO DAILY Primary Care Provider: Brian Cardona Referrals: Brian Cardona MD [Primary Care Provider] - Keep Braxton appointment Print Language: Moldovan Disposition Disposition: Home, Self Care What to do if you have Problems For any increased pain, shortness of breath, bleeding, nausea or vomiting, chestpain, or any unexpected problems, contact your Primary Care Provider. Call [facility] ([phone]) or report to the closest Emergency Room. Call 911 if necessary. 08/07/242058 <Electronically signed by Kit Harris MD> Cosigner Signature (if applicable): CC: Dr. Brian Cardona MD ~ Signed [facility] Work Phone: 1(244) 195-552505-06-2025 Discharge summary Author Hebert Saavedra [facility] Note Date/Time August 02, 2024 12:54p m [facility] Medical Records Department [address] [place] [address] Emergency Department Summary 08/02/24 MR#: [id number] Acct: [id number] Name: JORGE COVINGTON Rep #:[id number] 3 : 1955 68 From: Hebert Saavedra MD PCP: Dr. Brian Cardona MD Status:RE G ER Location: ED [...] (Patient was discharged yesterday from the hospital.) [facility] Medical History Other acute postprocedural pain [...] (Auto) 62.3 Lymph % (Auto) 15.1 L [place] % (Auto) 15.1 H Eos % (Auto) [...] Clarity Clear Urine pH 7.0 Ur Specific [place] 1.005 Urine Protein 15 H Urine Glucose [...] Read by ED Physician (Independent reviewed interpretedby co at 1156. Film slightly rotated. There is no cardiomegaly. There is no effusion or infiltrate. Film is suboptimal.), Unchanged, No Acute Disease and Chronic Changes Diagnostic Testing: Clinical Impression(s) from Imaging Studies Chest X-Ray 08/02/24 11:13 IMPRESSION: Similar appearance of the chest as above including cardiomegaly findings suggestive of mild interstitial edema or atypical pneumonia/pneumonitis. Reading Location: [facility] Radiology report was reviewed. Patient [...] mg PO DAILY Primary Care Provider: Brian Cardona Referrals: Brian Cardona MD [Primary Care Provider] - 1-2 Weeks Print Language: Moldovan Disposition Disposition: Home, Self Care What to do if you have Problems For any increased pain, shortness of breath, bleeding, nausea or vomiting, chestpain, or any unexpected problems, contact your Primary Care Provider. Call [facility] ([phone]) or report to the closest Emergency Room. Call 911 if necessary. 08/02/24 1254 <Electronically signed by Hebert Saavedra MD> Cosigner Signature (if applicable): CC: Dr. Brian Cardona MD ~ Signed [facility] Work Phone: 1(383) 999-675605-06-[address] [facility] Medical Records Department [address] [place] [address] Emergency Department Summary 08/02/24 MR#: [id number] Acct: [id number] Name: JORGE COVINGTON Rep #:[id number] 3 : 1955 68 From: Hebert Saavedra MD PCP: Dr. Brian Cardona MD Status:RE G ER Location: ED [...] (Patient was discharged yesterday from the hospital.) [facility] Medical History Other acute postprocedural pain [...] (Auto) 62.3 Lymph % (Auto) 15.1 L [place] % (Auto) 15.1 H Eos % (Auto) [...] Clarity Clear Urine pH 7.0 Ur Specific [place] 1.005 Urine Protein 15 H Urine Glucose [...] Read by ED Physician (Independent reviewed interpretedby co at 1156. Filmslightly rotated. There is no cardiomegaly. There is no effusion or infiltrate. Film is suboptimal.), Unchanged, No Acute Disease and Chronic Changes Diagnostic Testing: Clinical Impression(s) from Imaging Studies Chest X-Ray 08/02/24 11:13 IMPRESSION: Similar appearance of the chest as above including cardiomegaly findings suggestive of mild interstitial edema or atypical pneumonia/pneumonitis. Reading Location: [facility] Radiology report was reviewed. Patient [...] mg PO DAILY Primary Care Provider: Brian Cardona Referrals: Brian Cardona MD [Primary Care Provider] - 1-2 Weeks Print Language: Moldovan Disposition Disposition: Home, Self Care What to do if you have Problems For any increased pain, shortness of breath, bleeding, nausea or vomiting, chestpain, or any unexpected problems, contact your Primary Care Provider. Call [facility] [facility] ([phone]) or report tothe closest Emergency Room. Call 911 if necessary. 08/02/24 1254 Cosigner Signature (if applicable): CC: Dr. Brina Cardona MD ~ Signed [facility]05-06-2025 Radiology Diagnostic study note [facility] Imaging Services [address] [place] [address] Chest PA and Lateral MR#: [id number] Acct: [id number] Name: JORGE COVINGTON Rep #: [id number] 1 : 1955 M 68 From: Germaine Domingo MD PCP: Dr. Brian Cardona MD Status: PA E ER Study:Chest PA and Lateral Date of Exam: 08/02/24 Exam# [id number] Ordering Dr: Adri Saavedra MD PROCEDURE: CHEST [...] interstitial edema or atypical pneumonia/pneumonitis. Reading Location: [id number] CC: Dr. Brian Cardona MD; Dr. Hebert Saavedra MD ~ Dental Financial Coordinator: Signed [facility]05-05-2025 [facility]05-02-2025 Evaluation note* Diagnosis Onset Date Resolution Status Admit Date Acidosis, lactic resolved July 29, 2024 9:30pm Catheter-associated urinary tract infection resolved July 29, 2024 9: 30pm Complicated UTI (urinary tra ct infection) resolved July 29, 2024 9: 30pm Encephalopathy resolved July 29 9:30pm Urinary tract infection resolved M ay 2024 9:30pm Chronic suprapubic catheter inactive July 29, 2024 9:30pm Right ischial pressure sore acute August 29, 2024 2:27pm Right ischial pressure sore, stage 4 chronic August 29, 2024 2 :27pm Scoliosis acute September 16 2:45pm Cervical myelopathy inactive September 16, 2024 2:45pm Fusion of spine, cervical region inactive September 16, 2024 2:45pm Thoracic myelopathy inactive September 16, 2024 2:45pm Decubitus ulcer of right buttock, stage 3 acute October 03, 2024 3:20pm Scoliosis acute October 31 8:59am Thoracic myelopathy noneactive Augus t 2024 8:59am Cervical myelopathy noneactive Augus t 2024 8:59am Decubitus ulcer of right buttock, stage 3 acute November 14 2:57pm [facility] Work Phone: 1(837) 227-571105-02-2025 Telephone encounter Note* Telephone Encounter - Rocio Gutierrez RN - 07/29/2024 2:24 PM EDT S: Patient's spouse spoke with [facility] nurse regarding test results for spouse from [...] result.) Protocols used: PCP Call - No Bioske[facility][id number][facility]AN [id number] Miscellaneous Notes* Telephone Encounter - Rocio Gutierrez [...] result.) Protocols used: PCP Call - No Rrusro-MGAJC-PK documented in this [facility]04-28-2025 Evaluation note* Diagnosis Onset Date Resolution Status Admit Date Right ischial pressure sore acute July 25, [...] Thoracic myelopathy inactive September 16, 2024 2:45pm Decubitus ulcer of right buttock, stage 3 acute October 03, 2024 3:20pm [facility] Work Phone: 1(908) 182-547004-28-2025 Evaluation note* Diagnosis Onset Date Resolution Status Admit Date Right ischial pressure sore acute July 25, 2024 10:14am Right ischial pressure sore, stage 4 chronic July 25, 2024 10:14am Acidosis, lactic resolved July 29, 2024 9:30pm Catheter-associated urinary tract infection resolved July 29, 2024 9: 30pm Complicated UTI (urinary tra ct infection) resolved July 29, 2024 9: 30pm Encephalopathy resolved July 29, 9:30pm Urinary tract infection resolved M ay 2024 9:30pm Chronic suprapubic catheter inactive July 29, 2024 9:30pm Right ischial pressure sore acute August 29, 2024 2:27pm Right ischial pressure sore, stage 4 chronic August 29, 2024 2 :27pm Scoliosis acute September 16 2:45pm Cervical myelopathy inactive September 16, 2024 2:45pm Fusion of spine, cervical region inactive September 16, 2024 2:45pm Thoracic myelopathy inactive September 16, 2024 2:45pm Decubitus ulcer of right buttock, stage 3 acute October 03, 2024 3:20pm Scoliosis acute October 31 8:59am Thoracic myelopathy noneactive Augus t 2024 8:59am Cervical myelopathy noneactive Augus t 2024 8:59am Decubitus ulcer of right buttock, stage 3 acute November 14 2:57pm [facility] Work Phone: 1(484) 639-569203-31-2025 Progress note Author Luca Nayak [facility] Note Date/Time June 27, 2024 5:[address] [facility] [place] [address] [place] [address] Progress Note - Wound Care 06/27/24 1654 MR#: [id number] Acct: [id number] Name: JORGE COVINGTON Rep #:[id number] 7 : 1955 68 From: Luca Nayak MD PCP: Dr. Brian Cardona MD Status:RE G RCR Location: History [...] Charges/Coding Visit Charges Office Visits / Consults: 77378 OV L3 Est 20min Physical Exam Narrative [...] Date Recorded By Document 05/30/24 15:13 KW [id number] 05/30/24 15:25 KW Document 06/27/24 15:07 [facility] [id number] 06/27/24 15:16 BM 05/30/24 06/27/24 15:13 15:07 - Today's Visit Information Type of service Follow-up Visit Follow-up Visit (Physician/PRODUCTION INSPECTOR (Physician/PRODUCTION INSPECTOR ) ) Arrival Mode Wheelchair Wheelchair Transfer [...] Date Recorded By Document 05/30/24 15:13 KW [id number] 05/30/24 15:25 KW Document 06/27/24 15:07 BM [id number] 06/27/24 15:16 BM 05/30/24 06/27/24 15:13 15:07 [...] Recorded Date Recorded By Document 05/30/24 15:34 [id number] 05/30/24 15:39 JF Document 06/27/24 15:43 [id number] 06/27/24 15:49 JF Edit Result 06/27/24 15:43 JF (1) [id number] 06/27/24 15:54 JF (1) #5- R ischium [...] Date Recorded By Document 05/30/24 15:45 DL [id number] 05/30/24 15:48 DL Document 06/27/24 16:00 KW [id number] 06/27/24 16:00 KW 05/30/24 06/27/24 15:45 16:00 [...] His has been working on getting the [facility] records about his spine surgery and his prognosis. She states that she was told it was sent and received but nobody in the hospital system has been able to locate his chart. We will continue to try to get these records. Encouraged increased protein intake to help with wound healing. Waiting to hear from the [employer] to see if they can assist them [...] reasonable for just a wound check. 06/27/24 0152 <Electronically signed by Luca Nayak MD> Cosigner Signature (if applicable): CC: ~ Signed [facility] Work Phone: 1(201) 298-573503-31-[address] [facility] [address] [place] [address] Progress Note - Wound Care 06/27/24 1654 MR#: [id number] Acct: [id number] Name: JORGE COVINGTON Rep #:[id number] 7 : 1955 68 From: Luca Nayak MD PCP: Dr. Brian Cardona MD Status:RE G RCR Location: History [...] Charges/Coding Visit Charges Office Visits / Consults: 06041 OV L3 Est 20min Physical Exam Narrative [...] Start: 05/30/24 15:13 Freq: Status: Active Protocol: DILCIA.[place] Activity Type Activity Date Activity User E-sign Co-sign Detail Recorded Client Recorded Date Recorded By Document 05/30/24 15:13 KW [id number] 05/30/24 15:25 KW Document 06/27/24 15:07 BM [id number] 06/27/24 15:16 BMF 05/30/24 06/27/24 15:13 15:07 - Today's Visit Information Type of service Follow-up Visit Follow-up Visit (Physician/PRODUCTION INSPECTOR (Physician/PRODUCTION INSPECTOR ) ) Arrival Mode Wheelchair Wheelchair Transfer [...] Date Recorded By Document 05/30/24 15:13 KW [id number] 05/30/24 15:25 KW Document 06/27/24 15:07 BM [id number] 06/27/24 15:16 BM 05/30/24 06/27/24 15:13 15:07 [...] Date Recorded By Document 05/30/24 15:34 JF [id number] 05/30/24 15:39 JF Document 06/27/24 15:43 JF [id number] 06/27/24 15:49 JF Edit Result 06/27/24 15:43 JF (1) [id number] 06/27/24 15:54 JF (1) #5- R ischium [...] Date Recorded By Document 05/30/24 15:45 DL [id number] 05/30/24 15:48 DL Document 06/27/24 16:00 KW [id number] 06/27/24 16:00 KW 05/30/24 06/27/24 15:45 16:00 [...] His has been working on getting the [facility] records about his spine surgery and his prognosis. She states that she was told it was sent and received but nobody in the hospital system has been able to locate his chart. We will continue to try to get these records. Encouraged increased protein intake to help with wound healing. Waiting to hear from the [employer] to see if they can assist them [...] reasonable for just a wound check. 06/27/24 7141 Cosigner Signature (if applicable): CC: ~ Signed [facility]03-31-2025 Evaluation note* Diagnosis Onset Date Resolution Status Admit Date Right ischial pressure sore acute June 27, [...] Thoracic myelopathy inactive September 16, 2024 2:45pm Decubitus ulcer of right buttock, stage 3 acute October 03, 2024 3:20pm [facility] Work Phone: 1(952) 830-491703-16-[address] [facility] Medical Records Department [address] [place] [address] Instructions for Home/Discharge Instructions 06/12/24 1326 MR#: [id number] Acct: [id number] Name: JORGE COVINGTON Rep #:[id number] : 1955 68 From: Juliana Shaw MD PCP: Dr. Brian Cardona MD Status:AD M IN Discharge Instructions [...] Provider: Juliana Shaw Primary Care Provider: Brian Cardona Instructions Patient Instructions: ED Bladder Infection, [...] Recorder Preventi (Urgent) Timeframe: 1 Day Facility: [facility] - Location: Cardiovascular Services Ordered By: Dr. Juliana Shaw Referrals / Follow Up: Brian Cardona MD [Primary Care Provider] - Disposition Disposition (needs filled in before D/C Order can be placed): Home Health Service 06/12/24 1332Plan Shaw MD CC: Dr. Brian Cardona MD ~ Signed [facility]03-16-[facility] Progress note Author Juliana Shaw [facility] Note Date/Time June 11, 2024 12: 44pm [facility] Medical Records Department [address] [place] [address] Progress Note - Hospitalist 06/11/24 1242 MR#: [id number] Acct: [id number] Name: JORGE COVINGTON Rep #:[id number] 2 : 1955 68 From: Juliana Shaw MD PCP: Dr. Brian Cardona MD Status:AD M IN Location: [place] [address]- 1 Reason for Visit Reason for Visit: [...] Std Deviation 53.7 H, RDW Coeff of Joseu 16.6 H, Plt Count 270, MPV9.6, Immature Gran % (Auto) 1.100 H, Neut % (Auto) 72.2 H, Lymph % (Auto) 16.6 L, [place] % (Auto) 7.4, Eos % (Auto) 2.2, [...] pending, preliminarily growing gram- negative edward lactose credit control assistant, white blood cell count downtrending, patient vitally [...] Shaw MD Charges/Coding Visit Charges Inpatient E&M: 07862 Subs Hosp L1 06/11/24 1244 <Electronically signed by Juliana Shaw MD> Cosigner Signature (if applicable): CC: ~ Signed [facility] Work Phone: 1(992) 829-896003-15-2025 Progress note [facility] Medical Records Department [address] [place] [address] Progress Note - Hospitalist 06/11/24 1242 MR#: [id number] Acct: [id number] Name: JORGE COVINGTON Rep #:[id number] 2 : 1955 68 From: Juliana Shaw MD PCP: Dr. Brian Cardona MD Status:AD M IN Location: [place] [id number]- 1 Reason for Visit Reason for Visit: [...] 72.2 H, Lymph % (Auto) 16.6 L, [place] % (Auto) 7.4, Eos % (Auto) 2.2, [...] pending, preliminarily growing gram- negative edward lactose credit control assistant, white blood cell count downtrending, patient vitally [...] Shaw MD Charges/Coding Visit Charges Inpatient E&M: 92664 Subs Hosp L1 06/11/24 1242 Cosigner Signature (if applicable): CC: ~ Signed [facility]03-14-2025 Progress note Author Juliana Shaw [facility] Note Date/Time June 10, 2024 2:2 5pm [facility] Medical Records Department [address] [place] [address] Progress Note - Hospitalist 06/10/24 0859 MR#: [id number] Acct: [id number] Name: JORGE COVINGTON Rep #:[id number] 2 : 1955 68 From: Juliana Shaw MD PCP: Dr. Brian Cardona MD Status:AD M IN Location: [place] [address] Reason for Visit Reason for Visit: Diagnoses [...] 85.9 H, Lymph % (Auto) 5.6 L, [place] % (Auto) 6.9, Eos % (Auto) 0.4, [...] Clarity Cloudy, Urine pH 7.0, Ur Specific [place] 1.010, Urine Protein 30 H, Urine Glucose [...] 76.6 H, Lymph % (Auto) 12.1 L, [place] % (Auto) 8.2, Eos % (Auto) 1.4, [...] of scarring. Right apical scarring. Reading Location: [facility] Physical Exam Narrative General: Alert, answers questions [...] pending, preliminarily growing gram- negative edward lactose credit control assistant, white blood cell count downtrending, patient vitally [...] Shaw MD Charges/Coding Visit Charges Inpatient E&M: 22743 Subs Hosp L1 06/10/24 7975 <Electronically signed by Juliana Shaw MD> Cosigner Signature (if applicable): CC: ~ Signed ADDENDUM by Dr. Juliana Shaw MD on 06/10/24 at 142 Addendum Patient had an episode where there [...] Cosigner Signature (if applicable): cc: ~* Signed [facility] Work Phone: 1(413) 961-654503-14-[address] [facility] Medical Records Department [address] [place] [address] Progress Note - Hospitalist 06/10/24 0859 MR#: [id number] Acct: [id number] Name: JORGE COVINGTON Rep #:[id number] 2 : 1955 68 From: Juliana Shaw MD PCP: Dr. Brian Cardona MD Status:AD M IN Location: [place] [address]- 1 Reason for Visit Reason for Visit: [...] 85.9 H, Lymph % (Auto) 5.6 L, [place] % (Auto) 6.9, Eos % (Auto) 0.4, [...] Clarity Cloudy, Urine pH 7.0, Ur Specific [place] 1.010, Urine Protein 30 H, Urine Glucose [...] 76.6 H, Lymph % (Auto) 12.1 L, [place] % (Auto) 8.2, Eos % (Auto) 1.4, [...] of scarring. Right apical scarring. Reading Location: [facility] Physical Exam Narrative General: Alert, answers questions [...] pending, preliminarily growing gram- negative edward lactose credit control assistant, white blood cell count downtrending, patient vitally [...] Shaw MD Charges/Coding Visit Charges Inpatient E&M: 85841 Subs Hosp L1 06/10/24 1424 Cosigner Signature [...] further concerns or if frequency increases 06/10/24 1425 Cosigner Signature (if applicable): cc: ~* Signed [facility]03-13-2025 History and physical note Author Juliana Shaw [facility] Note Date/Time June 09, 2024 12: 16pm [facility] Medical Records Department [address] [place] [address] H&P Exam - Hospitalist 06/09/24 1206 MR#: [id number] Acct: [id number] Name: JORGE COVINGTON Rep #:[id number] 4 : 1955 68 From: Juliana Shaw MD PCP: Dr. Brian Cardona MD Status:RE G ER Location: ED HPI - General General Date of Admission: 06/09/24 Date of Service: 06/09/24 Chief Complaint: Fever HPI Narrative JORGE COVINGTON, is a 68 M with history of paraplegia, COPD, hypothyroidism, chronic indwelling Benson who presented [facility] ED 06/09/2024 with 1 day of [...] some diarrhea but otherwise grider negative ROS. [facility] Medical History Other acute postprocedural [...] 85.9 H, Lymph % (Auto) 5.6 L, [place] % (Auto) 6.9, Eos % (Auto) 0.4, [...] Clarity Cloudy, Urine pH 7.0, Ur Specific [place] 1.010, Urine Protein 30 H, Urine Glucose [...] of scarring. Right apical scarring. Reading Location: [facility] Assessment & Plan Assessment/Plan (1) Complicated urinary [...] 57 Minutes Charges/Coding Visit Charges Inpatient E&M: 77423 Init Hosp L2 06/09/24 1216 <Electronically signed by Juliana Shaw MD> Cosigner Signature (if applicable): CC: Dr. Juliana Shaw MD; Dr. Brian Cardona MD~ Signed [facility] Work Phone: 1(292) 730-409803-13-2025 Evaluation note* Diagnosis Onset Date Resolution Status [...] 025 9:30pm Urinary tract infection resolved M 2024 9:30pm Chronic suprapubic catheter inactive July 29, 2024 9:30pm Right ischial pressure sore acute August 29, 2024 2:27pm Right ischial pressure sore, stage 4 chronic August 29, 2024 2 :27pm Scoliosis acute September 16 2:45pm Cervical myelopathy inactive September 16, 2024 2:45pm Fusion of spine, cervical region ruel ctive September 16, 2024 2:45pm Thoracic myelopathy inactive September 16, 2024 2:45pm [facility] Work Phone: 1([phone]) 653-164603-13-2025 Discharge summary [facility] Note Date/Time June 09, 2024 11: 32am [facility] Medical Records Department [address] [place] [address] Emergency Department Summary 06/09/24 MR#: [id number] Acct: [id number] Name: JORGE COVINGTON Rep #:[id number] 7 : 1955 68 From: Hebert Saavedra MD PCP: Dr. Brian Cardona MD Status:RE G ER Location: ED [...] however there is a past history of [employer] that he has history of COPD. He [...] similar symptoms: Yes Recent Illness/Hospitalization: No PFSH [facility] Medical History Other acute postprocedural [...] 85.9 H Lymph % (Auto) 5.6 L [place] % (Auto) 6.9 Eos % (Auto) 0.4 [...] Clarity Cloudy Urine pH 7.0 Ur Specific [place] 1.010 Urine Protein 30 H Urine Glucose [...] inspiration. There is family reviewed interpreted by co [id number].) Diagnostic Testing: Clinical Impression(s) from Imaging Studies Chest X-Ray 06/09/24 09:12 IMPRESSION: Stable mild increased markings at the lung bases suggestive of scarring. Right apical scarring. Reading Location: [id number] Management Discussion w/another healthcare provider: Hospitalist (Spoke [...] coverage since she presents from home. Comments:: [place] was asked to page the hospitalist at 1116. Discharge Plan Dx/Rx/DC Orders Clinical Impression: Complicated urinary tract infection, Bedridden, Paraplegic spinal paralysis, Colostomy in place, Hyperlipidemia, Spinal cord injury, SIRS (systemic inflammatory response syndrome), Leukocytosis, Decubitus ulcer of right buttock,stage 3, Acidosis, lactic Disposition Disposition: Acute Care Hospital [facility] What to do if you have Problems For any increased pain, shortness of breath, bleeding, nausea or vomiting, chestpain, or any unexpected problems, contact your Primary Care Provider. Call [facility] ([phone]) or report to the closest Emergency Room. Call 911 if necessary. 06/09/24 1132 <Electronically signed by Hebert Saavedra MD> Cosigner Signature (if applicable): CC: Dr. Brian Cardona MD ~ Signed [facility] Work Phone: 1(872) 181-520903-13-[address] [facility] Medical Records Department [address] [place] [address] H&P Exam - Hospitalist 06/09/24 1206 MR#: [id number] Acct: [id number] Name: JORGE COVINGTON Rep #:[id number] : 1955 68 From: Juliana Shaw MD PCP: Dr. Brian Cardona MD Status:RE G ER Location: ED HPI - General General Date of Admission: 06/09/24 Date of Service: 06/09/24 Chief Complaint: Fever HPI Narrative JORGE COVINGTON, is a 68 M with history of paraplegia, COPD, hypothyroidism, chronic indwelling Benson who presented [facility] ED 06/09/2024 with 1 day of [...] some diarrhea but otherwise grider negative ROS. [facility] Medical History Other acute postprocedural [...] 85.9 H, Lymph % (Auto) 5.6 L, [place] % (Auto) 6.9, Eos % (Auto) 0.4, [...] Clarity Cloudy, Urine pH 7.0, Ur Specific [place] 1.010, Urine Protein 30 H, Urine Glucose [...] of scarring. Right apical scarring. Reading Location: [facility] Assessment & Plan Assessment/Plan (1) Complicated urinary [...] 57 Minutes Charges/Coding Visit Charges Inpatient E&M: 54648 Init Hosp L2 06/09/24 1216 Cosigner Signature (if applicable): CC: Dr. Juliana Shaw MD; Dr. Brian Cardona MD~ Signed [facility]03-13-2025 Discharge summary [facility] Medical Records Department [address] [place] [address] Emergency Department Summary 06/09/24 MR#: [id number] Acct: [id number] Name: JORGE COVINGTON Rep #:[id number] : 1955 68 From: Hebert Saavedra MD PCP: Dr. Brian Cardona MD Status:RE G ER Location: ED [...] however there is a past history of [facility] that he has history of COPD. He [...] 85.9 H Lymph % (Auto) 5.6 L [place] % (Auto) 6.9 Eos % (Auto) 0.4 [...] Clarity Cloudy Urine pH 7.0 Ur Specific [place] 1.010 Urine Protein 30 H Urine Glucose [...] limited inspiration. There is familyreviewed interpreted by co [id number].) Diagnostic Testing: Clinical Impression(s) from Imaging Studies Chest X-Ray 06/09/24 09:12 IMPRESSION: Stable mild increased markings at the lung bases suggestive of scarring. Right apical scarring. Reading Location: [id number] Management Discussion w/another healthcare provider: Hospitalist (Spoke [...] coverage since she presents from home. Comments:: Sports Reporter was asked to page the hospitalist at 1116. Discharge Plan Dx/Rx/DC Orders Clinical Impression: Complicated urinary tract infection, Bedridden, Paraplegic spinal paralysis, Colostomy in place, Hyperlipidemia, Spinal cord injury, SIRS (systemic inflammatory response syndrome), Leukocytosis, Decubitus ulcer of right buttock,stage 3, Acidosis, lactic Disposition Disposition: Acute Care Hospital [facility] What to do if you have Problems For any increased pain, shortness of breath, bleeding, nausea or vomiting, chestpain, or any unexpected problems, contact your Primary Care Provider. Call [facility] ([phone]) or report tothe closest Emergency Room. Call 911 if necessary. 06/09/24 1132 Cosigner Signature (if applicable): CC: Dr. Brian Cardona MD ~ Signed [facility]03-13-2025 Radiology Diagnostic study note [facility] Imaging Services [address] [place], [place] [address] Chest PA and Lateral MR#: [id number] Acct: [id number] Name: JORGE COVINGTON Rep #: [id number] : 1955 M 68 From: Eric Ocampo MD PCP: Dr. Brian Cardona MD Status: RE G ER Study:Chest PA and Lateral Date of Exam: 06/09/24 Exam# [id number] Ordering Dr: Adri Saavedra MD PROCEDURE: CHEST [...] of scarring. Right apical scarring. Reading Location: [id number] CC: Dr. Brian Cardona MD; Dr. Hebert Saavedra MD ~ Dental Financial Coordinator: Signed [facility]03-07-2025 Evaluation note* Diagnosis Onset Date Resolution [...] 2 :27pm Scoliosis acute September 16 2:45pm [employer] Work Phone: 1(387) 213-866403-07-2025 Evaluation note* Diagnosis Onset Date Resolution Status [...] Thoracic myelopathy inactive September 16, 2024 2:45pm [facility] Work Phone: 1(329) 146-442703-03-2025 Progress note Author Luca Nayak [facility] Note Date/Time May 30, 2024 5:[address] [facility] [address] [place] [address] Progress Note - Wound Care 05/30/24 1837 MR#: [id number] Acct: [id number] Name: JORGE COVINGTON Rep #:[id number] : 1955 68 From: Luca Nayak MD PCP: Dr. Brian Cardona MD Status:RE G RCR Location: History [...] a walker. He is meeting with the naumkeag operator today at our wound care center after [...] notes from the spine surgeon at the [facility]. Our team is working on this, and [...] labs (ordering). We are referring to the nuclear plant construction worker/nutrition internship here at the wound care center. 04 [...] Index (BMI) 35.5 Charges/Coding Procedures Integumentary 111xxx-113xx: 86052 Lillian musc/fascia 20 sq cm/< Add On Codes: 90158 Lillian musc/fascia add-on (x 1 unit ) [...] Date Recorded By Document 05/30/24 15:13 KW [id number] 05/30/24 15:25 05/30/24 15:13 WC - Today's Visit Information Type of service Follow-up Visit (Physician/PRODUCTION INSPECTOR ) Arrival Mode Wheelchair Accompanied by Patient [...] Date Recorded By Document 05/30/24 15:13 KW [id number] 05/30/24 15:25 05/30/24 15:13 Wound Center Nurse [...] Date Recorded By Document 05/30/24 15:34 ESTER [id number] 05/30/24 15:39 ESTER 05/30/24 15:34 Wound Center [...] Date Recorded By Document 05/30/24 15:45 DL [id number] 05/30/24 15:48 DL 05/30/24 15:45 Wound Care [...] His has been working on getting the [facility] records about his spine surgery and his prognosis. She states that she was told it was sent and received but nobody in the hospital system has been able to locate his chart. We will continue to try to get these records. Encouraged increased protein intake to help with wound healing. Waiting to hear from the [employer] to see if they can assist them [...] improvements with dressings. Continue offloading and the [facility] WTD. O.K. for monthly wound checks (challenge for the family to come more often than this, and wound is open and healthy). Plan to continue to promote granulation (has granulated over bone with current regimen). 05/30/241841 <Electronically signed by Luca Nayak MD> Cosigner Signature (if applicable): CC: ~ Signed [facility] Work Phone: 1(762) 229-995603-03-[address] [facility] [address] [place] [address] Progress Note - Wound Care 05/30/24 1837 MR#: [id number] Acct: [id number] Name: JORGE COVINGTON Rep #:[id number] : 1955 68 From: Luca Nayak MD PCP: Dr. Brian Cardona MD Status:RE G RCR Location: History [...] a walker. He is meeting with the naumkeag operator today at our wound care center after [...] notes from the spine surgeon at the [facility]. Our team is working on this, and [...] labs (ordering). We are referring to thedietician/nutrition internship here at the wound care center. 04 [...] Index (BMI) 35.5 Charges/Coding Procedures Integumentary 111xxx-113xx: 38866 Lillian musc/fascia 20 sq cm/< Add On Codes: 99503 Lillian musc/fascia add-on (x 1 unit ) [...] Date Recorded By Document 05/30/24 15:13 SHAISTA [id number] 05/30/24 15:25 KW 05/30/24 15:13 WC - Today's Visit Information Type of service Follow-up Visit (Physician/PRODUCTION INSPECTOR ) Arrival Mode Wheelchair Accompanied by Patient [...] Recorded Date Recorded By Document 05/30/24 15:13 [id number] 05/30/24 15:25 05/30/24 15:13 Wound Center Nurse [...] Recorded Date Recorded By Document 05/30/24 15:34 [id number] 05/30/24 15:39 05/30/24 15:34 Wound Center Nurse [...] Date Recorded By Document 05/30/24 15:45 DL [id number] 05/30/24 15:48 DL 05/30/24 15:45 Wound Care [...] His has been working on getting the [facility] records about his spine surgery and his prognosis. She states that she was told it was sent and received but nobody in the hospital system has been able to locate his chart. We will continue to try to get these records. Encouraged increased protein intake to help with wound healing. Waiting to hear from the [employer] to see if they can assist them [...] Cosigner Signature (if applicable): CC: ~ Signed [facility]02-03-2025 Evaluation note* Diagnosis Onset Date Resolution [...] suprapubic catheter inactive July 29, 2024 9:30pm [facility] Work Phone: 1(807) 289-602101-06-2025 Evaluation note* Diagnosis Onset Date Resolution Status [...] suprapubic catheter chronic July 29, 2024 9:30pm [facility] Work Phone: 1(945) 838-595901-02-2025 Telephone encounter Note* Telephone Encounter - Galileo Mcguire RN - 03/31/2024 2:58 PM EST Letter faxed to number provided. Successful fax confirmation scanned into media. [facility]Odgrwu86-36-4481 Miscellaneous Notes* Telephone Encounter - Galileo Mcguire [...] clogged SPT, per Jennifer. Fax order to [phone]. Please advise. * Telephone Encounter - Ely Flannery - 03/31/2024 12:57 PM EST Name of caller: Jennifer Contact phone number: [phone] Relationship to Patient: [place] [facility] Provider: Dr Casas Practice: Uro Chief Complaint/Reason for Call: Requesting a VERBAL ORDER Super Pubic Catheter Monthly Change. Jennifer: [phone] Patient changed insurance this is why the new Order is being requested. Best time of day caller can be reached: any Patient advised that office/PCP has 24-48 business hours to return their call: No documented in this [facility]01-02-2025 Telephone encounter Note* Telephone Encounter - EVELYNE Mccormack CNP - 03/31/2024 2:29 PM EST Letter created, [facility] fax [facility] Phone: 1(106) 105-297001-02-2025 Telephone encounter Note* Telephone Encounter - Misty Ortiz LPN - 03/31/2024 2:07 PM EST Patient need letter created for orders month SPT changes and care for any clogged SPT, per Jennifer. Fax order to [phone]. Please advise. [facility] SystemTrjdxl57-87-6912 Telephone encounter Note* Telephone Encounter - Ely Flannery - 03/31/2024 12:57 PM EST Name of caller: Jennifer Contact phone number: [phone] Relationship to Patient: [facility] Provider: Dr Casas Practice: Uro Chief Complaint/Reason for Call: Requesting a VERBAL ORDER Super Pubic Catheter Monthly Change. Jennifer: [phone] Patient changed insurance this is why the new Order is being requested. Best time of day caller can be reached: any Patient advised that office/PCP has 24-48 business hours to return their call: No [facility]12-23-2024 Evaluation note* Diagnosis Onset Date Resolution Status Admit Date Right ischial pressure sore acute March 21, 2024 3:09pm Right ischial pressure sore, stage 4 chronic March 21 024 3:09pm Right ischial pressure sore acute [...] stage 4 chronic June 27, 2024 3:30pm [facility] Work Phone: 1(858) 581-971711-27-2024 Evaluation note* Diagnosis Onset Date Resolution Status [...] spinal paralysis chronic June 09, 2024 12:06pm [facility] Work Phone: 1(345) 416-939811-01-2024 Telephone encounter Note* Telephone Encounter - Shamikaalee Khan - 01/29/2024 1:21 PM EDT Name of caller: Jaqueline Contact phone number: [phone] Relationship to Patient: [facility] Provider: Dr Casas Practice: Urology Chief Complaint/Reason for Call: Jaqueline stated that a voicemail was left on her managers phone and was calling back. Tried to call back line, no answer. Please call Jaqueline back to advise. Best time of day caller can be reached: Any Patient advised that office/PCP has 24-48 business hours to return their call: N/A [facility] SystemNnqgfu98-03-2075 Miscellaneous Notes* Telephone Encounter - Shamika Khan - 01/29/2024 1:21 PM EDT Name of caller: Jaqueline Contact phone number: [phone] Relationship to Patient: [facility] Provider: Dr Casas Practice: Urology [...] 01/26/2024 8:12 AM EDT Letter faxed to [facility] - ATTN: Jaqueline Your fax has been successfully sent to [facility] at [phone]. 01/26/2024 7:53:04 AM Conversion Record Successfully created cover sheet. Type: application/vnd.openxmlformats-officedocument.wordprocessingml.document G3 to TIFF #1: Success [image/g3] (48ms) GhostScript TIFF #1: Success [image/tiff] (190ms) Resubmitted: [application/postscript] Word Automation #1: Success [image/tiff] (1534ms) ([id number]) 01/26/2024 7:52:58 AM Transmission Record Sent to [phone] with remote ID [phone] Result: (0) Success Page record: 1 - 3 Elapsed time: 03:18 on channel 48 01/26/2024 7:52:47 AM Conversion Record [[id number].[email or web address].PRT] Type: application/postscript G3 to TIFF #1: Success [image/g3] (64ms) GhostScript TIFF #1: Success [image/tiff] (379ms) ([id number]:WORKSRV1) 01/26/2024 7:52:40 AM Origin Record Created by [...] that patient is in the ER at [facility] due to SPT being clogged. Home care saw patient this AM but could not change patient's catheter as they do not have orders to change SPT or flush it. Spoke with home care nurse Janell with [facility]. Janell states patient has been an established patient with them for a long time and the SPT is new. Currently they do not have orders to manage SPT. Per spouse they saw Dr. Casas on Thursday and orders were going to be written. Orders need created and faxed. Contact informationincluded below. [facility]. [phone]. ATTN: Jaqueline documented in this [facility]10-29-2024 Telephone encounter Note* Telephone Encounter - Hang Meehan RN - 01/26/2024 8:12 AM EDT Letter faxed to [facility] - ATTN: Jaqueline Your fax has been successfully sent to [facility] at [phone]. 01/26/2024 7:53:04 AM Conversion Record Successfully created cover sheet. Type: application/vnd.openxmlformats-officedocument.wordprocessingml.document G3 to TIFF #1: Success [image/g3] (48ms) GhostScript TIFF #1: Success [image/tiff] (190ms) Resubmitted: [application/postscript] Word Automation #1: Success [image/tiff] (1534ms) ([id number]:WORKSRV2) 01/26/2024 7:52:58 AM Transmission Record Sent to [phone] with remote ID [id number] Result: (0) Success Page record: 1 - 3 Elapsed time: 03:18 on channel 48 01/26/2024 7:52:47 AM Conversion Record [[id number].[email or web address].PRT] Type: application/postscript G3 to TIFF #1: Success [image/g3] (64ms) GhostScript TIFF #1: Success [image/tiff] (379ms) ([id number]:WORKSRV1) 01/26/2024 7:52:40 AM Origin Record Created by JEANNINE [facility] SystemNwszha70-18-7422 Telephone encounter Note* Telephone Encounter - EVELYNE Pelaez CNP - 01/25/2024 4:54 PM EDT A letter has been created for home health orders. Please fax to home health agency. Thank you [facility] SystemWrvhbz40-08-7155 Telephone encounter Note* Telephone Encounter - Marta Gallegos LPN - 01/25/2024 2:59 PM EDT Patient's spouse called and wanted to let us know that patient is in the ER at [facility] due to SPT being clogged. Home care saw patient this AM but could not change patient's catheter as they do not have orders to change SPT or flush it. Spoke with home care nurse Janell with [facility]. Janell states patient has been an established patient with them for a long time and the SPT is new. Currently they do not have orders to manage SPT. Per spouse they saw Dr. Casas on Thursday and orders were going to be written. Orders need created and faxed. Contact informationincluded below. [facility]. [phone]. ATTN: Jaqueline [facility] SystemShlxfq10-56-8654 History of Present illness Narrative* Rikki Casas [...] on 12/11/2023. The patient apparently went into [facility] on 12/25/23 (POD#14) because the catheter [...] discharge or drainage around the catheter. 16 Cook Islander suprapubic tube is in place. Musculoskeletal: General: [...] perform exchange of the suprapubic cystostomy (16 Cook Islander) on a monthly basis Rikki Caass MD 01/22/24 5:00 PM documented in this [facility]10-25-2024 History of Present illness Narrative* [...] on 12/11/2023. The patient apparently went into [facility] on 12/25/23 (POD#14) because the catheter [...] discharge or drainage around the catheter. 16 [place] Islander suprapubic tube is in place. Musculoskeletal: General: [...] perform exchange of the suprapubic cystostomy (16 [place] Islander) on a monthly basis Rikki Casas MD 01/22/24 5:00 PM * Diana Moore MA - 01/22/2024 9:50 AM EDT Called [facility], left detailed VM to return call to office regarding SPT orders. documented in this [facility]09-20-2024 Telephone encounter Note* Telephone Encounter [...] CAC Rn advised her to contact Home [facility] to see if they are able to replace the catheter. Patient's verbalized understanding. No further needs at this time. Reason for Disposition [1] Catheter is broken or cracked AND [2] still works (functioning normally) Protocols used: Urinary Catheter (e.g., Benson) Symptoms and Vhogkbvch-JCIWQ-FO [facility] SystemMjlhrr69-16-3784 Miscellaneous Notes* Telephone Encounter - Emerald Slater RN - 12/18/2023 4:02 PM EDT S: Patient's spoke with [facility] nurse regarding catheter leaking where it [...] used: Urinary Catheter (e.g., Benson) Symptoms and Guwqgduzx-JFRJF-GD documented in this encounterSPomerene HospitalOijoee44-21-1841 Miscellaneous Notes* Perioperative Nursing Note - Karen [...] of the trocar was withdrawn. A 14 [place] Islander catheter was advanced through the trocar. The [...] area in stable condition. documented in this [facility]09-13-2024 Note* Perioperative Nursing Note - Karen Chong RN - 12/11/2023 3:18 PM EDT Discharged to home . Accompanied by . AVS and education reviewed with patient and , both verbalized understanding. Mode of transportation private vehicle Belongings sent. [facility] SystemAlbswb09-22-3003 Note* Perioperative Nursing Note - Karen Chong RN - 12/11/2023 3:18 PM EDT Discharged to home . Accompanied by . AVS and education reviewed with patient and , both verbalized understanding. Mode of transportation private vehicle Belongings sent. [place] [id number] Hospital Discharge instructions* Discharge Instructions* Rikki Casas [...] . Rikki Casas M.D. documented in this [facility]09-13-2024 Note* Op Note - Rikki Casas [...] of the trocar was withdrawn. A 14 [place] Islander catheter was advanced through the trocar. The [...] to the recovery area in stable condition. [facility] SystemGsutqk93-30-0757 Note* Op Note - Rikki Casas MD [...] of the trocar was withdrawn. A 14 [place]er catheter was advanced through the trocar. The [...] to the recovery area in stable condition. [facility] SystemTsbwms11-37-4196 History and physical note* Rikki Casas MD - 12/11/2023 11:52 AM EDT [facility] Comprehensive History and [...] Rikki Casas MD, 12/11/2023 at 1:23 PM [facility] Work Phone: 1(892) 281-352709-13-2024 History and physical note* Rikki Casas MD - 12/11/2023 11:52 AM EDT [facility] Comprehensive History and Physical Name: Jorge [...] 12/11/2023 at 1:23 PM documented in this encounterSPomerene HospitalXjdiqv36-43-5963 Telephone encounter Note* Telephone Encounter - Rikki Casas MD - 12/07/2023 2:46 PM EDT error [facility] SystemOptrjv29-44-3606 Miscellaneous Notes* Telephone Encounter - Rikki Casas MD - 12/07/2023 2:46 PM EDT error documented in this [facility]06-13-2024 Telephone encounter Note* Telephone Encounter - Brooke Ochoa - 09/10/2023 9:21 AM EDT Patient's called office to request an appt at the [facility]. Appt RS to 10/23/[address] Casas in [place]. [facility] SystemKutkyx49-19-9260 Miscellaneous Notes* Telephone Encounter - Brooke Ochoa - 09/10/2023 9:21 AM EDT Patient's called office to request an appt at the [place] office. Appt RS to 10/23/[address] Casas in [place]. * Telephone Encounter - Cristy Smith - 09/07/2023 1:43 PM EDT Received message via [employer] that pt had been trying to contact office to schedule appt. Returned calland scheduled RESEARCH & ANALYTICS MANAGER appt 10/12/[address] Carmona at [facility]. * Telephone Encounter - Fiorella Willoughby - 08/19/2023 10:34 AM EDT Received referral from [employer] uploaded into chart. New patient appt needed. Called pt LVM to call back to schedule. documented in this encounterSPomerene HospitalIoqrxx55-70-1134 Telephone encounter Note* Telephone Encounter - Cristy Smith - 09/07/2023 1:43 PM EDT Received message via [employer] that pt had been trying to contact office to schedule appt. Returned calland scheduled RESEARCH & ANALYTICS MANAGER appt 10/12/[address] Carmona at [facility] location. [facility] SystemBwwpje21-83-7217 Miscellaneous Notes* Telephone Encounter - Cristy Smith - 09/07/2023 1:43 PM EDT Received message via [employer] that pt had been trying to contact office to schedule appt. Returned calland scheduled RESEARCH & ANALYTICS MANAGER appt 10/12/[address] Carmona at [facility] location. * Telephone Encounter - Fiorella Willoughby - 08/19/2023 10:34 AM EDT Received referral from [employer] uploaded into chart. New patient appt needed. Called pt LVM to call back to schedule. documented in this [facility]05-22-2024 Telephone encounter Note* Telephone Encounter - Fiorella Willoughby - 08/19/2023 10:34 AM EDT Received referral from [employer] uploaded into chart. New patient appt needed. Called pt LVM to call back to schedule. [facility] SystemTtbgub49-72-5179 Miscellaneous Notes* Telephone Encounter - Fiorella Willoughby - 08/19/2023 10:34 AM EDT Received referral from [employer] uploaded into chart. New patient appt needed. Called pt LVM to call back to schedule. documented in this [facility]04-24-2024 Progress note Author Kemi Rubio [facility] July 22, 2023 5:15pm Note Date/Time July 22, 2023 4:[address] [facility] [address] [place] [address] Progress Note - Wound Care 07/22/23 1608 MR#: [id number] Acct: [id number] Name: JORGE COVINGTON Rep #:[id number] : 1955 67 From: Kemi santiago RESEARCH & ANALYTICS MANAGER 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 PCP: Dr. Brian Cardona MD Status:RE G RCR Location: History [...] Index (BMI) 35.5 Charges/Coding Procedures Integumentary 111xxx-113xx: 20178 Lillian musc/fascia 20 sq cm/< (ICD-10 - [...] 07/22/23 13:13 DL 06/29/23 07/22/23 09:09 13:04 WC - Today's Visit Information Type of service Follow-up Visit Follow-up Visit (Physician/PRODUCTION INSPECTOR (Physician/PRODUCTION INSPECTOR ) ) Arrival Mode Wheelchair Wheelchair Transfer [...] likely benefit from a stay at an [facility] during this time. Patient was informed of [...] 1715 <Electronically signed by Kemi Rubio NP 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> Cosigner Signature (if applicable): CC: ~ Signed [facility] Work Phone: 1(687) 478-483704-02-2024 Progress note Author Kemi Rubio [facility] June 30, 2023 9:52am Note Date/Time June 29, 2023 12:2 8pm [facility] [address] [place] [address] Progress Note - Wound Care 06/29/23 1228 MR#: [id number] Acct: [id number] Name: JORGE COVINGTON Rep #:[id number] : 1955 67 From: Kemi santiago NP 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 PCP: Dr. Brian Cardona MD Status:RE G RCR Location: History [...] Index (BMI) 35.5 Charges/Coding Procedures Integumentary 111xxx-113xx: 70390 Lillian musc/fascia 20 sq cm/< (ICD-10 - L89.314, M86.9, F17.200, Z99.3) Add On Codes: 95766 Lillian musc/fascia add-on Debridement Note Debridement Note Post-Debridement Measurements and Additional Note: Post-Debridement Measurements/Treatment - Nurse 1 - General Ulcer Assessment Start: 06/29/23 09:09 Freq: Status: Active Protocol: KIRA Activity Type Activity Date Activity User E-sign Co-sign Detail Recorded Client Recorded Date Recorded By Document 06/29/23 09:09 [facility] [employer] 06/29/23 09:11 [facility] 06/29/23 09:09 WC - Today's Visit Information Type of service Follow-up Visit (Physician/PRODUCTION INSPECTOR ) Arrival Mode Wheelchair Transfer Assistance Billy [...] Recorded Date Recorded By Document 06/29/23 09:09 [facility] [employer]I [employer] 06/29/23 09:11 [facility] 06/29/23 09:09 Wound Center Nurse 1 #5- [...] 0952 <Electronically signed by Kemi Rubio NP RESEARCH & ANALYTICS MANAGER-C> Cosigner Signature (if applicable): CC: ~ Signed [facility] Work Phone: 1(681) 612-365403-18-2024 Progress note Author [facility] June 15, 2023 5:01pm Note Date/Time June 15, 2023 1:0 9pm [facility] [address] [place] [address] Progress Note - Wound Care 06/15/23 1308 MR#: [id number] Acct: [id number] Name: JORGE COVINGTON Rep #:[id number] 3 : 1955 67 From: Kemi santiago NP RESEARCH & ANALYTICS MANAGER-C PCP: Dr. Brian Cardona MD Status:RE G RCR Location: History [...] Index (BMI) 35.5 Charges/Coding Procedures Integumentary 111xxx-113xx: 70825 Lillian musc/fascia 20 sq cm/< (ICD-10 - [...] Start: 06/01/23 09:18 Freq: Status: Active Protocol: .LOWPEPE Activity Type Activity Date Activity User E-sign Co-sign Detail Recorded Client Recorded Date Recorded By Document 06/01/23 09:23 KW Desktop 06/01/23 09:26 KW Document 06/15/23 09:34 [facility] Desktop 06/15/23 09:39 BMF 06/01/23 06/15/23 09:23 09:34 - Today's Visit Information Type of service Follow-up Visit Follow-up Visit (Physician/PRODUCTION INSPECTOR (Physician/PRODUCTION INSPECTOR ) ) Arrival Mode Wheelchair Wheelchair Transfer [...] Desktop 06/01/23 09:26 KW Document 06/15/23 09:34 [facility] Desktop 06/15/23 09:39 BMF 06/01/23 06/15/23 09:23 [...] Recorded Date Recorded By Document 06/01/23 09:39 [employer] Laptop 06/01/23 09:43 Document 06/15/23 09:51 [employer] Laptop 06/15/23 09:54 06/01/23 06/15/23 09:39 09:51 [...] Desktop 06/01/23 09:59 DL Document 06/15/23 10:09 [facility] Desktop 06/15/23 10:10 [facility] 06/01/23 06/15/23 09:56 10:09 Wound Care Center [...] Stable Stable Ambulatory Status Wheelchair Wheelchair Transportation [facility] Type Home Health Home Health Orders Sent [...] and she would prefer he stay in [place] if possibledue to transportation issues. Follow up [...] likely benefit from a stay at an [facility] during this time. Patient was informed of [...] 06/15/23 1701 <Electronically signed by Kemi Rubio NP RESEARCH & ANALYTICS MANAGER-C> Cosigner Signature (if applicable): CC: ~ Signed [facility] Work Phone: 1(672) 682-984303-17-2024 Telephone encounter Note* Telephone Encounter - Christine Chu - 06/14/2023 3:02 PM EDT Name of caller: Jorge Contact phone number: [phone] Relationship to Patient: patient Provider: Erasmo Practice: [facility] Chief Complaint/Reason for Call: Pt called [...] business hours to return their call: N/A [id number] Miscellaneous Notes* Telephone Encounter - Christine Chu - 06/14/2023 3:02 PM EDT Name of caller: Jorge Contact phone number: [phone] Relationship to Patient: patient Provider: Erasmo Practice: [facility] Chief Complaint/Reason for Call: Pt called [...] return their call: N/A documented in this [facility]03-05-2024 Progress note Author Kemi Rubio [facility] June 02, 2023 1:03pm Note Date/Time June 01, 2023 10:2 1am [facility] [address] [place] [address] Progress Note - Wound Care 06/01/23 1021 MR#: [id number] Acct: [id number] Name: JORGE COVINGTON Rep #:[id number] 2 : 1955 67 From: Kemi santiago RESEARCH & ANALYTICS MANAGER RESEARCH & ANALYTICS MANAGER-C PCP: Dr. Brian Cardona MD Status:[facility] Location: History of Present Illness Date of [...] Index (BMI) 35.5 Charges/Coding Procedures Integumentary 111xxx-113xx: 60943 Lillian musc/fascia 20 sq cm/< (ICD-10 - L89.314, M86.9, F17.200, Z99.3) Add On Codes: 61580 Lillian musc/fascia add-on (ICD-10 - L89.314, M86.9, [...] Visit Information Type of service Follow-up Visit (Physician/PRODUCTION INSPECTOR ) Arrival Mode Wheelchair Transfer Assistance Billy [...] Recorded Date Recorded By Document 06/01/23 09:39 JF Laptop 06/01/23 09:43 06/01/23 09:39 Wound Center [...] him close to home because she prefers [place] over the larger medical centers. I discussed [...] likely benefit from a stay at an [facility] during this time. Patient was informed of [...] 1303 <Electronically signed by Kemi Rubio NP RESEARCH & ANALYTICS MANAGER-C> Cosigner Signature (if applicable): CC: ~ Signed [facility] Work Phone: 1(568) 430-285802-20-2024 Progress note Author Kemi Rubio [facility] May 19, 2023 12:46pm Note Date/Time May 18, 2023 11:16am [facility] [address] [place] [address] Progress Note - Wound Care 05/18/23 1115 MR#: [id number] Acct: [id number] Name: JORGE COVINGTON Rep #:[id number] 4 : 1955 67 From: Kemi santiago RESEARCH & ANALYTICS MANAGER RESEARCH & ANALYTICS MANAGER-C PCP: Dr. Brian Cardona MD Status:RE G RCR Location: History [...] Index (BMI) 35.5 Charges/Coding Procedures Integumentary 111xxx-113xx: 14000 Lillian musc/fascia 20 sq cm/< (ICD-10 - L89.314, M86.9, F17.200, Z99.3) Add On Codes: 28725 Lillian musc/fascia add-on (ICD-10 - L89.314, M86.9, [...] Start: 05/04/23 09:03 Freq: Status: Active Protocol: KIRA Activity Type Activity Date Activity User E-sign Co-sign Detail Recorded Client Recorded Date Recorded By Document 05/04/23 09:03 [employer] Desktop 05/04/23 09:06 BM Document 05/18/23 09:04 [employer] Desktop 05/18/23 09:16 BMF 05/04/23 05/18/23 09:03 09:04 - Today's Visit Information Type of service Follow-up Visit Follow-up Visit (Physician/PRODUCTION INSPECTOR (Physician/PRODUCTION INSPECTOR ) ) Arrival Mode Wheelchair Wheelchair Transfer [...] Recorded Date Recorded By Document 05/04/23 09:03 [employer] Desktop 05/04/23 09:06 BMF Document 05/18/23 09:04 BMF Desktop 05/18/23 09:16 BMF 05/04/23 05/18/23 09:03 [...] Recorded Date Recorded By Document 05/04/23 09:13 JF Laptop 05/04/23 09:19 JF Document 05/18/23 09:25 JF Laptop 05/18/23 09:27 JF 05/04/23 05/18/23 09:13 09:25 Wound Center Nurse [...] Recorded Client Recorded Date Recorded By Document 02/19/24 09:35 DL Desktop 05/18/23 09:36 DL 05/18/23 [...] likely benefit from a stay at an [facility] during this time. Patient was informed of [...] DVT, PE, and reaction to anesthesia. 05/19/23 5569 <Electronically signed by Kemi Rubio NP RESEARCH & ANALYTICS MANAGER-C> Cosigner Signature (if applicable): CC: ~ Signed [facility] Work Phone: 1([phone]) 377-864902-06-2024 Progress note Author Kemi Rubio [facility] May 05, 2023 9:37am Note Date/Time May 04, 2023 1 2:19pm [facility] [address] [place] [address] Progress Note - Wound Care 05/04/23 1219 MR#: [id number] Acct: [id number] Name: JORGE COVINGTON Rep #:[id number] 4 : 1955 67 From: Kemi santiago RESEARCH & ANALYTICS MANAGER RESEARCH & ANALYTICS MANAGER-C PCP: Dr. Brian Cardona MD Status:RE G RCR Location: History [...] Index (BMI) 35.5 Charges/Coding Procedures Integumentary 111xxx-113xx: 50184 Lillian musc/fascia 20 sq cm/< (ICD-10 - L89.314, M86.9, F17.200, Z99.3) Add On Codes: 63251 Lillian musc/fascia add-on (ICD-10 - L89.314, M86.9, [...] Recorded Date Recorded By Document 05/04/23 09:03 [facility] Desktop 05/04/23 09:06 [facility] 05/04/23 09:03 - Today's Visit Information Type of service Follow-up Visit (Physician/PRODUCTION INSPECTOR ) Arrival Mode Wheelchair Transfer Assistance Billy [...] Recorded Date Recorded By Document 05/04/23 09:03 [facility] Desktop 05/04/23 09:06 [facility] 05/04/23 09:03 Wound Center Nurse 1 #5- [...] 0937 <Electronically signed by Kemi Rubio NP RESEARCH & ANALYTICS MANAGER-C> Cosigner Signature (if applicable): CC: ~ Signed [facility] Work Phone: 1([phone]) 597-679801-25-2024 Progress note Author Kemi Rubio [facility] April 23, 2023 5:04pm Note Date/Time April 21, 2023 4 :48pm [facility] [address] [place] [address] Progress Note - Wound Care 04/21/23 1648 MR#: [id number] Acct: [id number] Name: JORGE COVINGTON Rep #:[id number] 2 : 1955 67 From: Kemi santiago NP RESEARCH & ANALYTICS MANAGER-C PCP: Dr. Brian Cardona MD Status:RE G RCR Location: History [...] anaerobic bacteria isolated. Charges/Coding Procedures Integumentary 111xxx-113xx: 35795 Lillian musc/fascia 20 sq cm/< (ICD-10 - L89.314, M86.9, F17.200, Z99.3) Add On Codes: 45183 Lillian musc/fascia add-on (ICD-10 - L89.314, M86.9, [...] Start: 04/06/23 09:18 Freq: Status: Active Protocol: .LOWPEPE Activity Type Activity Date Activity User E-sign Co-sign Detail Recorded Client Recorded Date Recorded By Document 04/06/23 09:18 DL Desktop 04/06/23 09:30 DL Document 04/21/23 13:42 KW [id number] 04/21/23 13:45 KW 04/06/23 04/21/23 09:18 13:42 WC - Today's Visit Information Type of service Follow-up Visit Follow-up Visit (Physician/PRODUCTION INSPECTOR (Physician/PRODUCTION INSPECTOR ) ) Arrival Mode Wheelchair Wheelchair Transfer [...] 04/06/23 09:30 DL Document 04/21/23 13:42 KW [id number] 04/21/23 13:45 KW 04/06/23 04/21/23 09:18 13:42 [...] 1704 <Electronically signed by Kemi Rubio NP RESEARCH & ANALYTICS MANAGER-C> Cosigner Signature (if applicable): CC: ~ Signed [facility] Work Phone: 1(852) 591-606701-09-2024 Progress note Author Kemi [facility] April 07, 2023 2:22pm Note Date/Time April 06, 2023 11 :59am [facility] [address] [place] [address] Progress Note - Wound Care 04/06/23 1159 MR#: [id number] Acct: [id number] Name: JORGE COVINGTON Rep #:[id number] 5 : 1955 67 From: Kemi santiago NP RESEARCH & ANALYTICS MANAGER-C PCP: Dr. Brian Cardona MD Status:[facility] Location: History of Present Illness Date of [...] Index (BMI) 35.5 Charges/Coding Procedures Integumentary 111xxx-113xx: 46030 Lillian musc/fascia 20 sq cm/< (ICD-10 - L89.314, M86.9, F17.200, Z99.3) Add On Codes: 56287 Lillian musc/fascia add-on (ICD-10 - L89.314, M86.9, [...] Start: 04/06/23 09:18 Freq: Status: Active Protocol: .LOWEXT Activity Type Activity Date Activity User E-sign Co-sign Detail Recorded Client Recorded Date Recorded By Document 04/06/23 09:18 DL Desktop 04/06/23 09:30 DL 04/06/23 09:18 - Today's Visit Information Type of service Follow-up Visit (Physician/PRODUCTION INSPECTOR ) Arrival Mode Wheelchair Transfer Assistance Billy [...] By Document 04/06/23 10:08 Laptop 04/06/23 10:13 JF 04/06/23 10:08 Wound [...] likely benefit from a stay at an [facility] during this time. Patient was informed of [...] 1422 <Electronically signed by Kemi Rubio NP RESEARCH & ANALYTICS MANAGER-C> Cosigner Signature (if applicable): CC: ~ Signed [facility] Work Phone: 1(709) 553-102512-19-2023 Progress [facility] March 17, 2023 11:39am Note Date/Time March 16, 2023 11:54am [facility] [address] [place] [address] Progress Note - Wound Care 03/16/23 1154 MR#: [id number] Acct: [id number] Name: JORGE COVINGTON Rep #:[id number] 0 : 1955 67 From: Kemi Jaquez DAVID RESEARCH & ANALYTICS MANAGER-C PCP: Dr. Brian Cardona MD Status:RE G RCR Location: History [...] Index (BMI) 35.5 Charges/Coding Procedures Integumentary 111xxx-113xx: 96904 Lillian musc/fascia 20 sq cm/< (ICD-10 - L89.314, M86.9, F17.200, Z99.3) Add On Codes: 55933 Lillian musc/fascia add-on (ICD-10 - L89.314, M86.9, [...] Start: 03/02/23 10:58 Freq: Status: Active Protocol: .NORIS Activity Type Activity Date Activity User E-sign Co-sign Detail Recorded Client Recorded Date Recorded By Document 03/02/23 10:58 [facility] Desktop 03/02/23 11:06 [facility] Document 03/16/23 08:57 Desktop 03/16/23 09:07 03/02/23 03/16/23 10:58 08:57 - Today's Visit Information Type of service Follow-up Visit Follow-up Visit (Physician/PRODUCTION INSPECTOR (Physician/PRODUCTION INSPECTOR ) ) Arrival Mode Wheelchair Wheelchair Transfer [...] Recorded Date Recorded By Document 03/02/23 10:58 [facility] Desktop 03/02/23 11:06 [employer] Document 03/16/23 08:57 Desktop 03/16/23 09:07 03/02/23 [...] Recorded Date Recorded By Document 03/02/23 11:35 BMF Desktop 03/02/23 11:36 BMF Document 03/16/23 09:26 [employer] Desktop 03/16/23 09:26 BMF 03/02/23 03/16/23 11:35 09:26 Wound Care Center Nurse 3 #5- R ischium -Ulcer Cleansing Rinsed/ Rinsed/ Irrigated with Irrigated with Saline Saline -Foul Odor after Cleansing No No -Other Dressing dakin moist dakins moist gauze gauze -Primary Dressing Covered/Secured with Secured with Secured with Tape Tape -Other Covering abd; per dl cisco administrator abd Treatment Response Procedure Procedure Tolerated Well [...] likely benefit from a stay at an [facility] during this time. Patient was informed of [...] 1139 <Electronically signed by Kemi Rubio NP RESEARCH & ANALYTICS MANAGER-C> Cosigner Signature (if applicable): CC: ~ Signed [facility] Work Phone: [phone]) [phone] Telephone encounter Note* Telephone Encounter - Adilene [...] Protocols used: Information Only Call - No [id number] [id number] Miscellaneous Notes* Telephone Encounter - Adilene Campbell [...] Protocols used: Information Only Call - No [id number] documented in this [facility]12-07-2023 Progress note Author Popeye Messina [facility] March 04, 2023 10:49pm Note Date/Time March 04, 2023 8 :33am [facility] [address] [place] [address] Progress Note - Wound Care 03/02/23 1240 MR#: [id number] Acct: [id number] Name: JORGE COVINGTON Rep #:[id number] 4 : 1955 67 From: Popeye Walker PCP: Dr. Brian Cardona MD Status:RE G RCR Location: History [...] patient's lab results. Charges/Coding Procedures Integumentary 111xxx-113xx: 85740 Lillian musc/fascia 20 sq cm/< (ICD-10 - L89.314, M86.9, F17.200, Z99.3) Add On Codes: 89450 Lillina musc/fascia add-on (ICD-10 - L89.314, M86.9, F17.200, [...] Recorded Date Recorded By Document 03/02/23 10:58 [facility] [employer] 03/02/23 11:06 [facility] 03/02/23 10:58 - Today's Visit Information Type of service Follow-up Visit (Physician/PRODUCTION INSPECTOR ) Arrival Mode Wheelchair Transfer Assistance Billy [...] Recorded Date Recorded By Document 03/02/23 10:58 [facility] [employer] 03/02/23 11:06 [facility] 03/02/23 10:58 Wound Center Nurse 1 #5- [...] Recorded Date Recorded By Document 03/02/23 11:35 [facility] Desktop 03/02/23 11:36 [facility] 03/02/23 11:35 Wound Care Center Nurse 3 #5- R ischium -Ulcer Cleansing Rinsed/ Irrigated with Saline -Foul Odor after Cleansing No -Other Dressing dakin moist gauze -Primary Dressing Covered/Secured with Secured with Tape -Other Covering abd; per dl cisco administrator Treatment Response Procedure Tolerated Well Pain Scale: [...] likely benefit from a stay at an [facility] during this time. Patient was informed of [...] at the Wound Center in 2 weeks. 03/04/23 9819 <Electronically signed by Popeye Messina MD> Cosigner Signature (if applicable): CC: ~ Signed [facility] Work Phone: 1(701) 695-258211-20-2023 Progress note Author Kemi Rubio [facility] February 16, 2023 11:10am Note Date/Time February 16, 2023 11:05am [facility] [address] [place] [address] Progress Note - Wound Care 02/16/23 1100 MR#: [id number] Acct: [id number] Name: JORGE COVINGTON Rep #:[id number] 6 : 1955 67 From: Kemi santiago RESEARCH & ANALYTICS MANAGER RESEARCH & ANALYTICS MANAGER-C PCP: Dr. Brian Cardona MD Status:RE G RCR Location: History [...] Index (BMI) 35.5 Charges/Coding Procedures Integumentary 111xxx-113xx: 20348 Lillian musc/fascia 20 sq cm/< Add On Codes: 88037 Lillian musc/fascia add-on Debridement Note Debridement Note [...] Start: 02/16/23 08:54 Freq: Status: Active Protocol: DILCIA.NORIS Activity Type Activity Date Activity User E-sign Co-sign Detail Recorded Client Recorded Date Recorded By Document 02/16/23 08:54 [facility] Desktop 02/16/23 09:02 [facility] 02/16/23 08:54 - Today's Visit Information Type of service Follow-up Visit (Physician/PRODUCTION INSPECTOR ) Arrival Mode Wheelchair Transfer Assistance Billy [...] Recorded Date Recorded By Document 02/16/23 08:54 [facility] Desktop 02/16/23 09:02 [facility] 02/16/23 08:54 Wound Center Nurse 1 #5- [...] Status Wheelchair Transportation Private Auto Facility Type [facility] Facility Orders Sent Yes Assessment/Plan Assessment/Plan [...] 1110 <Electronically signed by Kemi Rubio NP RESEARCH & ANALYTICS MANAGER-C> Cosigner Signature (if applicable): CC: ~ Signed [facility] Work Phone: 1(943) 491-321110-27-2023 Progress note Author Kemi Rubio [facility] January 23, 2023 4:04pm Note Date/Time January 19, 2023 1 1:11am [facility] [address] [place] [address] Progress Note - Wound Care 01/19/23 1111 MR#: [id number] Acct: [id number] Name: JORGE COVINGTON Rep #:[id number] 3 : 1955 67 From: Kemi santiago NP RESEARCH & ANALYTICS MANAGER-C PCP: Dr. Brian Cardona MD Status:RE G RCR Location: History [...] Index (BMI) 35.5 Charges/Coding Procedures Integumentary 111xxx-113xx: 86536 Lillian musc/fascia 20 sq cm/< Add On Codes: 79466 Lillian musc/fascia add-on Debridement Note Debridement Note [...] Start: 12/29/22 08:13 Freq: Status: Active Protocol: [employer] Activity Type Activity Date Activity User E-sign Co-sign Detail Recorded Client Recorded Date Recorded By Document 12/29/22 08:14 [facility] Desktop 12/29/22 08:15 [facility] Document 01/19/23 08:17 Desktop 01/19/23 08:18 12/29/22 01/19/23 08:14 08:17 - Today's Visit Information Type of service Follow-up Visit Follow-up Visit (Physician/PRODUCTION INSPECTOR (Physician/PRODUCTION INSPECTOR ) ) Arrival Mode Wheelchair Wheelchair Transfer [...] Document 12/29/22 08:14 BMF Desktop 12/29/22 08:15 BM Document 01/19/23 08:17 JF Desktop 01/19/23 08:18 12/29/22 01/19/23 08:14 08:17 [...] Used 4% Lidocaine 4% Lidocaine Solution Solution - Nurse 2 - General Ulcer CM Notes Start: 12/29/22 08:13 Freq: Status: Active Protocol: Activity Type Activity Date Activity User E-sign Co-sign Detail Recorded Client Recorded Date Recorded By Document 12/29/22 08:57 JF Laptop 12/29/22 09:02 JF Document 01/19/23 08:49 JF Desktop 01/19/23 08:53 JF 12/29/22 01/19/23 08:57 08:49 Wound Center Nurse [...] Recorded Client Recorded Date Recorded By Document 10/02/23 09:16 PL Tablet 12/29/22 09:17 PL Document 01/19/23 08:58 BMF Desktop 01/19/23 09:00 BMF 12/29/22 01/19/23 09:16 08:58 Wound Care Center Nurse 3 #5- R ischium -Ulcer Cleansing Rinsed/ Rinsed/ Irrigated with Irrigated with Saline Saline -Foul Odor after Cleansing No No -Other Dressing Sue,MÓNICA DAKINS MOIST GAUZE; PER DL FLARE MAKER -Primary Dressing Covered/Secured with Dry Gauze, Secured with Secured with Tape Tape -Other Covering ABD Treatment Response Procedure Tolerated Well Pain Scale: 0-10 Numeric Is Patient Pain Free? Yes Yes WC - Visit Discharge Discharge Condition Stable Stable Ambulatory Status Wheelchair Wheelchair Transportation [facility] Facility Type Home Health Assessment/Plan Assessment/Plan (1) [...] 1604 <Electronically signed by Kemi Rubio NP RESEARCH & ANALYTICS MANAGER-C> Cosigner Signature (if applicable): CC: ~ Signed [facility] Work Phone: 1([phone]) 814-859710-05-2023 Progress note Author Kemi Rubio [facility] December 31, 2022 10:35pm Note Date/Time December 29, 2022 9: 47am [facility] [address] [place] [address] Progress Note - Wound Care 12/29/22 0947 MR#: [id number] Acct: [id number] Name: JORGE COVINGTON Rep #:[id number] 3 : 1955 67 From: Kemi santiago NP RESEARCH & ANALYTICS MANAGER-C PCP: Dr. Brian Cardona MD Status:RE G RCR Location: History [...] Index (BMI) 35.5 Charges/Coding Procedures Integumentary 111xxx-113xx: 25186 Lillian musc/fascia 20 sq cm/< Add On Codes: 09994 Lillian musc/fascia add-on Debridement Note Debridement Note [...] Start: 12/29/22 08:13 Freq: Status: Active Protocol: OctmamiRené Activity Type Activity Date Activity User E-sign Co-sign Detail Recorded Client Recorded Date Recorded By Document 12/29/22 08:14 [facility] Desktop 12/29/22 08:15 [facility] 12/29/22 08:14 WC - Today's Visit Information Type of service Follow-up Visit (Physician/PRODUCTION INSPECTOR ) Arrival Mode Wheelchair Transfer Assistance Billy [...] Document 12/29/22 08:14 BM Desktop 12/29/22 08:15 [facility] 12/29/22 08:14 Wound Center Nurse 1 #5- [...] 12/31/222234 <Electronically signed by Kemi Rubio NP RESEARCH & ANALYTICS MANAGER-C> Cosigner Signature (if applicable): CC: ~ Signed [facility] Work Phone: 1(815) 336-226609-15-2023 Progress note Author Kemi Rubio [facility] December 12, 2022 12:58pm Note Date/Time December 08, 2022 9:33am [facility] [address] [place] [address] Progress Note - Wound Care 12/08/22 0932 MR#: [id number] Acct: [id number] Name: JORGE COVINGTON Rep #:[id number] 2 : 1955 67 From: Kemi santiago NP RESEARCH & ANALYTICS MANAGER-C PCP: Dr. Brian Cardona MD Status:RE G RCR Location: History [...] Index (BMI) 35.5 Charges/Coding Procedures Integumentary 111xxx-113xx: 09524 Lillian musc/fascia 20 sq cm/< Add On Codes: 53655 Lillian musc/fascia add-on Debridement Note Debridement Note [...] Recorded Date Recorded By Document 12/08/22 08:52 [id number] 12/08/22 08:54 RB 12/08/22 08:52 - Today's Visit Information Type of service Follow-up Visit (Physician/PRODUCTION INSPECTOR ) Arrival Mode Ambulatory Transfer Assistance None [...] Date Recorded By Document 12/08/22 08:52 RB [id number] 12/08/22 08:54 RB 12/08/22 08:52 Wound Center [...] Attached -Granulation Amt Medium (34-66%) -Granulation Quality [place] -Slough/Fibrin Yes -Necrosis Amt Medium (34-66%) -Necrotic [...] Date Recorded By Document 12/08/22 09:09 ESTER [id number] 12/08/22 09:11 JF 12/08/22 09:09 Wound Center Nurse 2 -Time [...] Date Recorded By Document 12/08/22 09:16 KW [id number] 12/08/22 09:17 KW Document 12/08/22 09:27 DL [id number] 12/08/22 09:28 DL 12/08/22 12/08/22 09:16 09:27 [...] or come in sooner if needed. 12/12/22 0262 <Electronically signed by Kemi Rubio NP RESEARCH & ANALYTICS MANAGER-C> Cosigner Signature (if applicable): CC: ~ Signed [facility] Work Phone: 1(745) 389-601908-28-2023 Progress note Author Kari Romero [facility] November 24, 2022 8:35am Note Date/Time November 24, 2022 8: 36am [facility] Medical Records Department [address] [place] [address] Progress Note - Surgery 11/24/22 0832 MR#: [id number] Acct: [id number] Name: JORGE COVINGTON Rep #:[id number] 4 : 1955 67 From: Kari Walker PCP: Dr. Brian Cardona MD Status:AD M IN Location: [place] [address] Subjective Subjective Patient seen and examined during [...] this afternoon. Charges/Coding Visit Charges Inpatient E&M: 16513 Subs Hosp L2 11/24/22 0835 <Electronically signed by Kari Romero MD> Cosigner Signature (if applicable): CC: ~ Signed [facility] Work Phone: 1([phone]) 116-268808-27-2023 Progress note Author [facility] November 23, 2022 10:10am Note Date/Time November 23, 2022 8: 37am [facility] Medical Records Department [address] [place] [address] Progress Note - Surgery 11/23/2237 MR#: [id number] Acct: [id number] Name: JORGE COVINGTON Rep #:[id number] 0 : 1955 67 From: Nakita Arroyo MD PCP: Dr. Brian Cardona MD Status:AD M IN Location: [place] [address] Subjective Subjective Patient tolerating diet and having [...] Continue home meds. Nakita Arroyo M.D. Pager: [phone] [facility] [address] [place] [address], [facility], [address] [place] [address] Office: [phone] 11/23/22 0958 <Electronically signed by Nakita Arroyo MD> Cosigner Signature (if applicable): CC: ~ Signed ADDENDUM by Dr. Nakita Arroyo MD on 11/23/22 at 1010 Addendum benson was in for i/o-- will d/c 11/23/22 1010<Electronically signed by Nakita Arroyo MD> Cosigner Signature (if applicable): cc: ~* Signed [facility] Work Phone: 1([phone]) 264-877008-26-2023 Progress note Author Nakita Arroyo [facility] November 22, 2022 8:01am Note Date/Time November 22, 2022 8: 01am [facility] Medical Records Department [address] [place] [address] Progress Note - Surgery 11/22/22 0702 MR#: [id number] Acct: [id number] Name: JORGE COVINGTON Rep #:[id number] : 1955 67 From: Nakita Arroyo MD PCP: Dr. Brian Cardona MD Status:AD M IN Location: [place] [address]1 Subjective Subjective Patient tolerating clears having brown [...] patient's home meds. Nakita Arroyo M.D. Pager: [phone] [facility] [address] [place] [address], [facility], [address] [place] [address] Office: [phone] 11/22/22 0801 <Electronically signed by Nakita Arroyo MD> Cosigner Signature (if applicable): CC: ~ Signed [facility] Work Phone: 1([phone]) 790-697508-25-2023 History and physical note Author Kari Romero [facility] November 21, 2022 7:30am Note Date/Time November 21, 2022 7: 30am [facility] Medical Records Department [address] [place] [address] History & Physical Exam 11/21/22728 MR#: [id number] Acct: [id number] Name: JORGE COVINGTON Rep #:[id number] : 1955 67 From: Kari Walker PCP: Dr. Brian Cardona MD Status:[facility] Location: [place] [address] History and Physical Date of Service: 09/05/22 MR#: [id number] Acct: [id number] Name: JORGE COVINGTON Rep #: [id number] : 1955 Provider: Dr. Kari Romero MD Age/Sex: 67/M Location: [facility] Status: Signed Intake Vital Signs 06/19/2311:17 09/06/2307:48 Height 5 ft 6 in BP 117/69 Blood Pressure Location Rt radial Position Sitting Respiration 18 Pulse 80 Pulse Source Monitor Temp 97.3 F L Temp Source Temporal Pulse Oximetry (%) 95 Oxygen Delivery Method room air Intake Visit Reasons: UPDATE H&P FOR COLOSTOMY Chief Complaint: Update H&P/ Discuss Colostomy Retread Technician Required: No Is patient in pain?: No [...] 09/05/22] arginine 7 gram-glutam 7 gram-CaHMB 1.5 eafs-iotgx-ol-min oral pwd pkt (Edgar (with collagen)) 1 [...] Postoperatively patient will be admitted to the [facility] floor for observation. 11/21/22 0730 <Electronically signed by Kari Romero MD> Cosigner Signature (if applicable): CC: Dr. Kari Romero MD; Dr. Brian Cardona MD~ Signed [facility] Work Phone: 1(496) 870-667208-20-2023 Progress note Author Kemi Rubio [facility] November 16, 2022 7:11pm Note Date/Time November 10, 2022 12 :25pm [facility] [address] [place] [address] Progress Note - Wound Care 11/10/22 1225 MR#: [id number] Acct: [id number] Name: JORGE COVINGTON Rep #:[id number] : 1955 67 From: Kemi santiago RESEARCH & ANALYTICS MANAGER RESEARCH & ANALYTICS MANAGER-C PCP: Care Physician,No Primary Status :REG RCR [...] Index (BMI) 35.5 Charges/Coding Procedures Integumentary 111xxx-113xx: 70235 Lillian musc/fascia 20 sq cm/< Add On Codes: 52879 Lillian musc/fascia add-on Debridement Note Debridement Note [...] Recorded Date Recorded By Document 11/10/22 08:37 [facility] [id number] 11/10/22 08:43 [facility] 11/10/22 08:37 - Today's Visit Information Type of service Follow-up Visit (Physician/PRODUCTION INSPECTOR ) Arrival Mode Wheelchair Transfer Assistance Billy [...] Recorded Date Recorded By Document 11/10/22 08:37 [facility] [id number] 11/10/22 08:43 [facility] 11/10/22 08:37 Wound Center Nurse 1 #5- [...] Date Recorded By Document 11/10/22 09:11 ESTER [id number] 11/10/22 09:17 ESTER 11/10/22 09:11 Wound Center [...] Recorded Date Recorded By Document 11/10/22 09:20 [id number] 11/10/22 09:21 11/10/22 09:20 Wound Care Center [...] 11/16/221910 <Electronically signed by Kemi Rubio NP RESEARCH & ANALYTICS MANAGER-C> Cosigner Signature (if applicable): CC: ~ Signed [facility] Work Phone: 1([phone]) 730-472207-24-2023 Progress note Author Kemi Rubio [facility] October 20, 2022 10:26am Note Date/Time October 20, 2022 10:[address] [facility] [address] [place] [address] Progress Note - Wound Care 10/20/22 1017 MR#: [id number] Acct: [id number] Name: JORGE COVINGTON Rep #:[id number] : 1955 67 From: Kemi santiago RESEARCH & ANALYTICS MANAGER RESEARCH & ANALYTICS MANAGER-C PCP: Care Physician,No Primary Status :REG RCR [...] Index (BMI) 35.5 Charges/Coding Procedures Integumentary 111xxx-113xx: 33589 Lillian musc/fascia 20 sq cm/< Add On Codes: 33068 Lillian musc/fascia add-on (x1) Debridement Note Debridement [...] Recorded Date Recorded By Document 10/06/22 08:38 [facility] [id number] 10/06/22 08:48 [facility] Document 10/20/22 08:28 [facility] [id number] 10/20/22 08:32 BMF 10/06/22 10/20/22 08:38 08:28 - Today's Visit Information Type of service Follow-up Visit Follow-up Visit (Physician/PRODUCTION INSPECTOR (Physician/PRODUCTION INSPECTOR ) ) Arrival Mode Wheelchair Wheelchair Transfer [...] Recorded Date Recorded By Document 10/06/22 08:38 [facility] [id number] 10/06/22 08:48 [facility] Document 10/20/22 08:28 [facility] [id number] 10/20/22 08:32 [facility] 10/06/22 10/20/22 08:38 08:28 Wound Center Nurse [...] Recorded Date Recorded By Document 10/06/22 09:07 [id number] 10/06/22 09:10 Document 10/20/22 09:02 [id number] 10/20/22 09:05 MW 10/06/22 10/20/22 09:07 09:02 [...] Recorded Date Recorded By Document 10/06/22 09:13 [id number] 10/06/22 09:14 Document 10/20/22 09:10 KW [id number] 10/20/22 09:11 10/06/22 10/20/22 09:13 09:10 Wound [...] 1026 <Electronically signed by Kemi Rubio NP RESEARCH & ANALYTICS MANAGER-C> Cosigner Signature (if applicable): CC: ~ Signed [facility] Work Phone: 1(711) 381-140807-10-2023 Progress note Author Kemi Rubio [facility] October 06, 2022 2:08pm Note Date/Time October 06, 2022 9:27 am [facility] [address] [place] [address] Progress Note - Wound Care 10/06/22 0925 MR#: [id number] Acct: [id number] Name: JORGE COVINGTON Rep #:[id number] : 1955 67 From: Kemi E Swinde ll RESEARCH & ANALYTICS MANAGER RESEARCH & ANALYTICS MANAGER-C PCP: Care Physician,No Primary Status :REG RCR [...] Index (BMI) 35.5 Charges/Coding Procedures Integumentary 111xxx-113xx: 49158 Lillian musc/fascia 20 sq cm/< Add On Codes: 92016 Lillian musc/fascia add-on Debridement Note Debridement Note [...] Recorded Date Recorded By Document 10/06/22 08:38 [facility] [id number] 10/06/22 08:48 [facility] 10/06/22 08:38 - Today's Visit Information Type of service Follow-up Visit (Physician/PRODUCTION INSPECTOR ) Arrival Mode Wheelchair Transfer Assistance Billy [...] Recorded Date Recorded By Document 10/06/22 08:38 [facility] [id number] 10/06/22 08:48 [facility] 10/06/22 08:38 Wound Center Nurse 1 #5- [...] Date Recorded By Document 10/06/22 09:07 [facility] [id number] 10/06/22 09:10 10/06/22 09:07 Wound Center Nurse [...] Date Recorded By Document 10/06/22 09:13 [facility] [id number] 10/06/22 09:14 ESTER 10/06/22 09:13 Wound Care [...] or come in sooner if needed. 10/06/22 3605 <Electronically signed by Kemi Rubio NP RESEARCH & ANALYTICS MANAGER-C> Cosigner Signature (if applicable): CC: ~ Signed [facility] Work Phone: 1([phone]) [phone] Progress note Author Kemi Rubio [facility] September 23, 2022 12:51pm Note Date/Time September 15, 2022 9:24 am [facility] [address] [place] [address] Progress Note - Wound Care 09/15/22 0924 MR#: [id number] Acct: [id number] Name: JORGE COVINGTON Rep #:[id number] 1 : 1955 67 From: Kemi santiago RESEARCH & ANALYTICS MANAGER RESEARCH & ANALYTICS MANAGER-C PCP: Care Physician,No Primary Status :REG RCR [...] Index (BMI) 35.5 Charges/Coding Procedures Integumentary 111xxx-113xx: 36514 Lillian musc/fascia 20 sq cm/< Add On Codes: 27802 Lillian musc/fascia add-on Debridement Note Debridement Note [...] Date Recorded By Document 09/01/22 09:10 DL [id number] 09/01/22 09:22 DL Document 09/15/22 08:09 BM [id number] 09/15/22 08:13 BMF 09/01/22 09/15/22 09:10 08:09 - Today's Visit Information Type of service Follow-up Visit Follow-up Visit (Physician/PRODUCTION INSPECTOR (Physician/PRODUCTION INSPECTOR ) ) Arrival Mode Wheelchair Wheelchair Transfer [...] Date Recorded By Document 09/01/22 09:10 DL [id number] 09/01/22 09:22 DL Document 09/15/22 08:09 [facility] [id number] 09/15/22 08:13 [facility] 09/01/22 09/15/22 09:10 08:09 Wound Center Nurse [...] Recorded Date Recorded By Document 09/01/22 09:52 [id number] 09/01/22 09:55 Document 09/15/22 09:07 PL [id number] 09/15/22 09:09 PL 09/01/22 09/15/22 09:52 09:07 [...] Recorded Date Recorded By Document 09/01/22 10:09 [facility] [id number] 09/01/22 10:10 [facility] Document 09/15/22 08:54 [id number] 09/15/22 08:55 DL 09/01/22 09/15/22 10:09 08:54 [...] 1251 <Electronically signed by Kemi Rubio NP RESEARCH & ANALYTICS MANAGER-C> Cosigner Signature (if applicable): CC: ~ Signed [facility] Work Phone: [phone] Progress note Author Kemi Rubio [facility] September 06, 2022 10:52pm Note Date/Time September 01, 2022 1:00p m [facility] [address] [place] [address] Progress Note - Wound Care 09/01/22 1300 MR#: [id number] Acct: [id number] Name: JORGE COVINGTON Rep #:[id number] : 1955 67 From: Kemi santiago RESEARCH & ANALYTICS MANAGER RESEARCH & ANALYTICS MANAGER-C PCP: Care Physician,No Primary Status :REG RCR [...] Index (BMI) 35.5 Charges/Coding Procedures Integumentary 111xxx-113xx: 72571 Lillian musc/fascia 20 sq cm/< Add On Codes: 11594 Lillian musc/fascia add-on Debridement Note Debridement Note [...] Date Recorded By Document 09/01/22 09:10 DL [id number] 09/01/22 09:22 DL 09/01/22 09:10 - Today's Visit Information Type of service Follow-up Visit (Physician/PRODUCTION INSPECTOR ) Arrival Mode Wheelchair Transfer Assistance Billy [...] Date Recorded By Document 09/01/22 09:10 DL [id number] 09/01/22 09:22 DL 09/01/22 09:10 Wound Center [...] Recorded Date Recorded By Document 09/01/22 09:52 [id number] 09/01/22 09:55 09/01/22 09:52 Wound Center Nurse 2 -Time [...] Recorded Date Recorded By Document 09/01/22 10:09 [facility] [id number] 09/01/22 10:10 [facility] 09/01/22 10:09 Wound Care Center Nurse 3 [...] or come in sooner if needed. 09/06/22 8332 <Electronically signed by Kemi Rubio NP RESEARCH & ANALYTICS MANAGER-C> Cosigner Signature (if applicable): CC: ~ Signed [facility] Work Phone: [phone]) [phone] Progress note Author Kemi Rubio [facility] August 24, 2022 1:14pm Note Date/Time August 18, 2022 11:[address] [facility] [address] [place] [address] Progress Note - Wound Care 08/18/22 1131 MR#: [id number] Acct: [id number] Name: JORGE COVINGTON Rep #:[id number] : 1955 67 From: Kemi santiago RESEARCH & ANALYTICS MANAGER RESEARCH & ANALYTICS MANAGER-C PCP: Care Physician,No Primary Status :REG RCR [...] Index (BMI) 35.5 Charges/Coding Procedures Integumentary 111xxx-113xx: 59566 Lillian musc/fascia 20 sq cm/< Add On Codes: 07846 Lillian musc/fascia add-on Debridement Note Debridement Note [...] Date Recorded By Document 07/28/22 09:10 DL [id number] 07/28/22 09:13 DL Document 08/18/22 08:35 [facility] [id number] 08/18/22 08:44 BM 07/28/22 08/18/22 09:10 08:35 - Today's Visit Information Type of service Follow-up Visit Follow-up Visit (Physician/PRODUCTION INSPECTOR (Physician/PRODUCTION INSPECTOR ) ) Arrival Mode Wheelchair Wheelchair Transfer [...] Date Recorded By Document 07/28/22 09:10 DL [id number] 07/28/22 09:13 DL Document 08/18/22 08:35 [facility] [id number] 08/18/22 08:44 BMF 07/28/22 08/18/22 09:10 08:35 [...] Date Recorded By Document 07/28/22 09:24 ESTER [id number] 07/28/22 09:26 JF Edit Result 07/28/22 09:24 ESTER (1) [id number] 07/29/22 06:33 PL Document 08/18/22 09:14 [id number] 08/18/22 09:17 ESTER (1) #5- R ischium [...] Date Recorded By Document 07/28/22 09:50 PL [id number] 07/28/22 09:51 PL Document 08/18/22 09:21 [facility] [id number] 08/18/22 09:22 [facility] 07/28/22 08/18/22 09:50 09:21 Wound Care Center Nurse 3 #5- R ischium -Ulcer Cleansing Rinsed/ Rinsed/ Irrigated with Irrigated with Saline Saline -Foul Odor after Cleansing No No -Primary Dressing Applied Hysept ($) -Other Dressing mónica Rogers moist gauze; per [place] [employer] administrator -Primary Dressing Covered/Secured with Secured with Secured [...] 1314 <Electronically signed by Kemi Rubio NP RESEARCH & ANALYTICS MANAGER-C> Cosigner Signature (if applicable): CC: ~ Signed [facility] Work Phone: 1([phone]) 140-190805-09-2023 Progress note Author Kemi Rubio [facility] August 05, 2022 3:38pm Note Date/Time July 28, 2022 12:17p m [facility] [address] [place] [address] Progress Note - Wound Care 07/28/22 1217 MR#: [id number] Acct: [id number] Name: JORGE COVINGTON Rep #:[id number] : 1955 66 From: Kemi santiago RESEARCH & ANALYTICS MANAGER RESEARCH & ANALYTICS MANAGER-C PCP: Care Physician,No Primary Status :REG R Location: History of Present Illness Date [...] Index (BMI) 35.5 Charges/Coding Procedures Integumentary 111xxx-113xx: 88446 Lillian musc/fascia 20 sq cm/< Add On Codes: 54074 Lillian musc/fascia add-on Debridement Note Debridement Note [...] Start: 07/28/22 08:57 Freq: Status: Active Protocol: .NORIS Activity Type Activity Date Activity User E-sign Co-sign Detail Recorded Client Recorded Date Recorded By Document 07/28/22 09:10 DL [id number] 07/28/22 09:13 DL 07/28/22 09:10 - Today's Visit Information Type of service Follow-up Visit (Physician/PRODUCTION INSPECTOR ) Arrival Mode Wheelchair Transfer Assistance Billy [...] Date Recorded By Document 07/28/22 09:10 ARVIN [id number] 07/28/22 09:13 DL 07/28/22 09:10 Wound Center [...] Date Recorded By Document 07/28/22 09:24 ESTER [id number] 07/28/22 09:26 ESTER 07/28/22 09:24 Wound Center [...] Date Recorded By Document 07/28/22 09:50 PL [id number] 07/28/22 09:51 PL 07/28/22 09:50 Wound Care [...] or come in sooner if needed. 08/05/22 2444 <Electronically signed by Kemi Rubio NP RESEARCH & ANALYTICS MANAGER-C> Cosigner Signature (if applicable): CC: ~ Signed [facility] Work Phone: [phone]) 611-684504-23-2023 Progress note Author Kemi Rubio [facility] July 20, 2022 6:50pm Note Date/Time July 14, 2022 12: 07pm [facility] [address] [place] [address] Progress Note - Wound Care 07/14/22 1206 MR#: [id number] Acct: [id number] Name: JORGE COVINGTON Rep #:[id number] : 1955 66 From: Kemi santiago NP RESEARCH & ANALYTICS MANAGER-C PCP: Care Physician,No Primary Status :REG RCR [...] Index (BMI) 35.5 Charges/Coding Procedures Integumentary 111xxx-113xx: 10014 Global Visit Debridement Note Debridement Note Wound [...] Start: 06/30/22 08:16 Freq: Status: Active Protocol: DILCIA.Hiperos Activity Type Activity Date Activity User E-sign Co-sign Detail Recorded Client Recorded Date Recorded By Document 06/30/22 08:16 DL [id number] 06/30/22 08:24 DL Document 07/14/22 08:21 DL [id number] 07/14/22 08:29 DL 06/30/22 07/14/22 08:16 08:21 - Today's Visit Information Type of service Follow-up Visit Follow-up Visit (Physician/PRODUCTION INSPECTOR (Physician/PRODUCTION INSPECTOR ) ) Arrival Mode Wheelchair Wheelchair Transfer [...] Date Recorded By Document 06/30/22 08:16 DL [id number] 06/30/22 08:24 DL Document 07/14/22 08:21 DL [id number] 07/14/22 08:29 DL 06/30/22 07/14/22 08:16 08:21 [...] Date Recorded By Document 06/30/22 09:08 ESTER [id number] 06/30/22 09:16 JF Edit Result 06/30/22 09:08 JF (1) [id number] 07/01/22 06:53 PL Document 07/14/22 09:24 JF [id number] 07/14/22 09:31 JF (1) #5- R ischium [...] Date Recorded By Document 06/30/22 09:31 PL [id number] 06/30/22 09:32 PL Document 07/14/22 09:47 DL [id number] 07/14/22 09:47 DL 06/30/22 07/14/22 09:31 09:47 [...] 1850 <Electronically signed by Kemi Rubio NP RESEARCH & ANALYTICS MANAGER-C> Cosigner Signature (if applicable): CC: ~ Signed [facility] Work Phone: [phone]) [phone] Progress note Author Kemi Rubio [facility] July 05, 2022 9:24pm Note Date/Time June 30, 2022 9:36 am [facility] [address] [place] [address] Progress Note - Wound Care 06/30/22 0936 MR#: [id number] Acct: [id number] Name: JORGE COVINGTON Rep #:[id number] : 1955 66 From: Kemi santiago NP 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 PCP: Care Physician,No Primary Status :REG RCR [...] Index (BMI) 35.5 Charges/Coding Procedures Integumentary 111xxx-113xx: 69095 Global Visit Debridement Note Debridement Note Wound [...] Start: 06/30/22 08:16 Freq: Status: Active Protocol: DILCIA.LOWEXT Activity Type Activity Date Activity User E-sign Co-sign Detail Recorded Client Recorded Date Recorded By Document 06/30/22 08:16 DL [id number] 06/30/22 08:24 DL 06/30/22 08:16 WC - Today's Visit Information Type of service Follow-up Visit (Physician/PRODUCTION INSPECTOR ) Arrival Mode Wheelchair Transfer Assistance Billy [...] Recorded Date Recorded By Document 06/30/22 08:16 [id number] 06/30/22 08:24 06/30/22 08:16 Wound Center Nurse [...] Recorded Date Recorded By Document 06/30/22 09:08 [id number] 06/30/22 09:16 ESTER 06/30/22 09:08 Wound Center [...] Date Recorded By Document 06/30/22 09:31 PL [id number] 06/30/22 09:32 PL 06/30/22 09:31 Wound Care [...] process. He had a colonscopy by Dr. Rmoero on 06/18/22. Patient is trying to decide if he wants to have a colostomy. He has home health to assist with wound care. Follow up two weeks. Call or come in sooner if needed. 07/05/222123 <Electronically signed by Kemi Rubio NP RESEARCH & ANALYTICS MANAGER-C> Cosigner Signature (if applicable): CC: ~ Signed [facility] Work Phone: 1(242) 121-968403-22-2023 History and physical note Author Dr. Romero [facility] June 18, 2022 12:40pm Note Date/Time June 18, 2022 12: 40pm [facility] Medical Records Department [address] [place] [address] History & Physical Exam 06/18/22 1237 MR#: [id number] Acct: [id number] Name: JORGE COVINGTON Rep #:[id number] : 1955 66 From: Kari Walker PCP: Care Physician,No Primary Status :REG [facility] Location: [place] [address] History and Physical Date of Admission: 06/18/22 Date of Service:? 05/27/22 MR#: [id number] Acct: [id number] Name:? JORGE COVINGTON Rep #: [id number] : 1955 ? ? Provider: Dr. Kari Romero MD Age/Sex:? 66/M ? ? Location: [facility] Status: Signed Intake Vital Signs ? 04/28/2316:34 05/02/2311:00 05/27/2312:34 Height 5 ft 6 in 5 ft 6 in 5 ft 6 in Weight: ? ? 188 lb BMI ? ? 30.3 BP ? ? 139/70 H Blood Pressure Location ? ? Rt brachial Position ? ? Sitting Respiration ? ? 18 Intake Visit Reasons:?DISCUSS COLOSTOMY CREATION Chief Complaint: Discuss ostomy Retread Technician Required: No Is patient in pain?: No [...] 05/27/22] arginine 7 gram-glutam 7 gram-CaHMB 1.5 jbab-pivra-bb-min oral pwd pkt (Edgar (with collagen)) 1 [...] that he will need to have a motor coach bus driver with him the day of the [...] Romero MD; No Primary Care Physician~ Signed [facility] Work Phone: 1(869) 760-313203-22-2023 Procedure [facility] 06-11-2022 Progress note Author Kemi Rubio [facility] June 11, 2022 8:32am Note Date/Time June 09, 2022 1:0 9pm [facility] [address] [place] [address] Progress Note - Wound Care 06/09/22 1308 MR#: [id number] Acct: [id number] Name: JORGE COVINGTON Rep #:[id number] : 1955 66 From: Kemi santiago RESEARCH & ANALYTICS MANAGER RESEARCH & ANALYTICS MANAGER-C PCP: Dr. Brian Cardona MD Status:RE G RCR Location: History [...] Index (BMI) 35.5 Charges/Coding Procedures Integumentary 111xxx-113xx: 28657 Global Visit Debridement Note Debridement Note Wound [...] Recorded Date Recorded By Document 06/09/22 08:15 [facility] [id number] 06/09/22 08:25 [facility] 06/09/22 08:15 - Today's Visit Information Type of service Follow-up Visit (Physician/PRODUCTION INSPECTOR ) Arrival Mode Wheelchair Transfer Assistance Billy [...] Recorded Date Recorded By Document 06/09/22 08:15 [facility] [id number] 06/09/22 08:25 [facility] 06/09/22 08:15 Wound Center Nurse 1 #5- [...] Recorded Date Recorded By Document 06/09/22 08:45 [id number] 06/09/22 08:47 ESTER 06/09/22 08:45 Wound Center Nurse 2 -Time [...] Recorded Date Recorded By Document 06/09/22 08:53 [facility] [id number] 06/09/22 08:54 [facility] 06/09/22 08:53 Wound Care Center Nurse 3 #5- R ischium -Ulcer Cleansing Rinsed/ Irrigated with Saline -Foul Odor after Cleansing No -Primary Dressing Applied Hysept ($) -Other Dressing abd; drsg per dl cisco administrator -Primary Dressing Covered/Secured with Secured with Tape [...] 0832 <Electronically signed by Kemi Rubio NP RESEARCH & ANALYTICS MANAGER-C> Cosigner Signature (if applicable): CC: ~ Signed [facility] Work Phone: [phone]) [phone] Progress note Author Kemi Rubio [facility] May 26, 2022 10:41am Note Date/Time May 26, 2022 10:38am [facility] [address] [place] [address] Progress Note - Wound Care 05/26/22 1032 MR#: [id number] Acct: [id number] Name: JORGE COVINGTON Rep #:[id number] : 1955 66 From: Kemi santiago NP RESEARCH & ANALYTICS MANAGER-C PCP: Dr. Brian Cardona MD Status:RE G RCR Location: History [...] Index (BMI) 35.5 Charges/Coding Procedures Integumentary 111xxx-113xx: 12924 Global Visit Debridement Note Debridement Note Wound [...] Recorded Date Recorded By Document 05/05/22 10:54 [facility] [id number] 05/05/22 10:57 BM Document 05/12/22 08:40 BMF [id number] 05/12/22 08:49 BMF Document 05/26/22 08:40 DL [id number] 05/26/22 08:42 DL 05/05/22 05/12/22 05/26/22 10:54 08:40 08:40 - Today's Visit Information Type of service Follow-up Visit Follow-up Visit Follow-up Visit (Physician/PRODUCTION INSPECTOR (Physician/PRODUCTION INSPECTOR (Physician/PRODUCTION INSPECTOR ) ) ) Arrival Mode Wheelchair Wheelchair [...] Recorded Date Recorded By Document 05/05/22 10:54 [facility] [id number] 05/05/22 10:57 BMF Document 05/12/22 08:40 BMF [id number] 05/12/22 08:49 BMF Document 05/26/22 08:40 DL [id number] 05/26/22 08:42 DL 05/05/22 05/12/22 05/26/22 10:54 [...] Recorded Date Recorded By Document 05/05/22 11:08 [facility] [id number] 05/05/22 11:14 [facility] Document 05/12/22 09:05 [id number] 05/12/22 09:06 Document 05/26/22 09:42 [id number] 05/26/22 09:44 05/05/22 05/12/22 05/26/22 11:08 09:05 [...] Recorded Date Recorded By Document 05/05/22 11:20 [facility] [id number] 05/05/22 11:21 BMF Document 05/12/22 09:15 ML [id number] 05/12/22 09:15 ML Document 05/26/22 09:47 DL [id number] 05/26/22 09:48 DL 05/05/22 05/12/22 05/26/22 11:20 [...] -Other Covering abd; drsg per ABD [place] [employer] administrator Treatment Response Procedure Procedure Tolerated Well Tolerated Well Pain Scale: 0-10 Numeric Is Patient Pain Free? Yes Yes Yes WC - Visit Discharge Discharge Condition Stable Stable Ambulatory Status Wheelchair Wheelchair Transportation [facility] Accompanied by Facility Type Home Health Home [...] 1041 <Electronically signed by Kemi Rubio NP RESEARCH & ANALYTICS MANAGER-C> Cosigner Signature (if applicable): CC: ~ Signed [facility] Work Phone: 1(825) 706-116702-15-2023 Progress note Author Kemi Rubio [facility] May 14, 2022 5:43pm Note Date/Time May 12, 2022 11:40am [facility] [address] [place] [address] Progress Note - Wound Care 05/12/22 1140 MR#: [id number] Acct: [id number] Name: JORGE COVINGTON Rep #:[id number] 5 : 1955 66 From: Kemi santiago RESEARCH & ANALYTICS MANAGER RESEARCH & ANALYTICS MANAGER-C PCP: Dr. Brian Cardona MD Status:RE G RCR Location: History [...] Index (BMI) 35.5 Charges/Coding Procedures Integumentary 111xxx-113xx: 51371 Global Visit Debridement Note Debridement Note Wound [...] Start: 05/05/22 10:54 Freq: Status: Active Protocol: KIRA Activity Type Activity Date Activity User E-sign Co-sign Detail Recorded Client Recorded Date Recorded By Document 05/05/22 10:54 [facility] [id number] 05/05/22 10:57 [facility] Document 05/12/22 08:40 [facility] [id number] 05/12/22 08:49 [facility] 05/05/22 05/12/22 10:54 08:40 - Today's Visit Information Type of service Follow-up Visit Follow-up Visit (Physician/PRODUCTION INSPECTOR (Physician/PRODUCTION INSPECTOR ) ) Arrival Mode Wheelchair Wheelchair Transfer Assistance Billy Lift Blily Lift Transfer Assist (Other) 2 Accompanied by [...] Recorded Date Recorded By Document 05/05/22 10:54 [facility] [id number] 05/05/22 10:57 [facility] Document 05/12/22 08:40 [facility] [id number] 05/12/22 08:49 [facility] 05/05/22 05/12/22 10:54 08:40 Wound Center Nurse [...] Recorded Date Recorded By Document 05/05/22 11:08 [facility] [id number] 05/05/22 11:14 [facility] Document 05/12/22 09:05 [id number] 05/12/22 09:06 05/05/22 05/12/22 11:08 09:05 Wound [...] Recorded Date Recorded By Document 05/05/22 11:20 [facility] [id number] 05/05/22 11:21 [facility] Document 05/12/22 09:15 ML [id number] 05/12/22 09:15 ML 05/05/22 05/12/22 11:20 09:15 Wound Care Center Nurse 3 #5- R ischium -Ulcer Cleansing Rinsed/ Rinsed/ Irrigated with Irrigated with Saline Saline -Foul Odor after Cleansing No No -Other Dressing dakins moist DAKINS gauze MOISTENED GAUZE -Primary Dressing Covered/Secured with Dry Gauze, Secured with Tape -Other Covering abd; drsg per [place] [employer] administrator Treatment Response Procedure Tolerated Well Pain Scale: 0-10 Numeric Is Patient Pain Free? Yes Yes WC - Visit Discharge Discharge Condition Stable Ambulatory Status Wheelchair Transportation [facility] Accompanied by Facility Type Home Health Assessment/Plan [...] or come in sooner if needed. 05/14/22 2363 <Electronically signed by Kemi Rubio NP RESEARCH & ANALYTICS MANAGER-C> Cosigner Signature (if applicable): CC: ~ Signed [facility] Work Phone: 1(306) 547-186202-12-2023 Progress note Author Kemibehzad Rubio [facility] May 11, 2022 8:31pm Note Date/Time May 05, 2022 1 1:35am [facility] [address] [place] [address] Progress Note - Wound Care 05/05/22 1135 MR#: [id number] Acct: [id number] Name: JORGE COVINGTON Rep #:[id number] 1 : 1955 66 From: Kemi santiago RESEARCH & ANALYTICS MANAGER RESEARCH & ANALYTICS MANAGER-C PCP: Dr. Brian Cardona MD Status:RE G RCR Location: History [...] Index (BMI) 35.5 Charges/Coding Procedures Integumentary 111xxx-113xx: 76780 Global Visit Physical Exam Const alert General [...] Start: 05/05/22 10:54 Freq: Status: Active Protocol: DILCIA.LOWDEVORAHT Activity Type Activity Date Activity User E-sign Co-sign Detail Recorded Client Recorded Date Recorded By Document 05/05/22 10:54 [facility] [id number] 05/05/22 10:57 [facility] 05/05/22 10:54 WC - Today's Visit Information Type of service Follow-up Visit (Physician/PRODUCTION INSPECTOR ) Arrival Mode Wheelchair Transfer Assistance Billy [...] 0-10 Numeric Is Patient Pain Free? Yes [facility] Nurse 1 - General Ulcer Measurement Start: 05/05/22 10:54 Freq: Status: Active Protocol: Activity Type Activity Date Activity User E-sign Co-sign Detail Recorded Client Recorded Date Recorded By Document 05/05/22 10:54 [facility] [id number] 05/05/22 10:57 [facility] 05/05/22 10:54 Wound Center Nurse 1 #5- [...] Recorded Date Recorded By Document 05/05/22 11:08 [facility] [id number] 05/05/22 11:14 [facility] 05/05/22 11:08 Wound Center Nurse 2 -Correct [...] Recorded Date Recorded By Document 05/05/22 11:20 [facility] [id number] 05/05/22 11:21 [facility] 05/05/22 11:20 Wound Care Center Nurse 3 #5- R ischium -Ulcer Cleansing Rinsed/ Irrigated with Saline -Foul Odor after Cleansing No -Other Dressing dakins moist gauze -Other Covering abd; drsg per [employer] administrator Treatment Response Procedure Tolerated Well Pain Scale: 0-10 Numeric Is Patient Pain Free? Yes WC - Visit Discharge Discharge Condition Stable Ambulatory Status Wheelchair Transportation [facility] Accompanied by Facility Type Home Health Assessment/Plan [...] care. I spoke with our social media content specialist/case management at the hospital and they stated [...] 05/11/222030 <Electronically signed by Kemi Rubio NP RESEARCH & ANALYTICS MANAGER-C> Cosigner Signature (if applicable): CC: ~ Signed [facility] Work Phone: 1(954) 343-315102-03-[address] Singh [facility] May 02, 2022 3:10pm Note Date/Time May 02, 2022 1 2:35pm [facility] Medical Records Department [address] [place] [address] Emergency Department Summary 05/02/22 MR#: [id number] Acct: [id number] Name: JORGE COVINGTON Rep #:[id number] 2 : 1955 66 From: Ted Gonzalez PCP: Dr. Brian Cardona MD Status:RE G ER Location: ED [...] office was told to go the ER. [facility] Medical History Arthritis Bedridden COPD (chronic obstructive [...] Unknown] arginine 7 gram-glutam 7 gram-CaHMB 1.5 honx-rlblg-mn-min oral pwd pkt (Edgar (with collagen)) 1 [...] (Auto) 69.8 Lymph % (Auto) 15.5 L Olmsted % (Auto) 10.8 H Eos % (Auto) [...] Qty: 28 0RF Primary Care Provider: Brian Cardona Referrals: Popeye Messina MD [Med Staff - Active Staff] - Keep Braxton appointment Brian Cardona MD [Primary Care Provider] - 1 [...] your Primary Care Provider. Call [facility] ([phone]) or report to the closest Emergency Room. Call 911 if necessary. 05/02/22 1510 <Electronically signed by Ted Gonzalez> Cosigner Signature (if applicable): CC: Dr. Brian Cardona MD ~ Signed [facility] Work Phone: 1(946) 208-662001-27-2023 Progress note Author Cristy [facility] April 25, 2022 9:15am Note Date/Time April 25, 2022 9 :02am [facility] [address] [place] [address] Progress Note - Wound Care 04/25/22 0856 MR#: [id number] Acct: [id number] Name: JORGE COVINGTON Rep #:[id number] 1 : 1955 66 From: Cristy GONZALEZ PCP: Dr. Brian Cardona MD Status:RE G RCR Location: History [...] Charges/Coding Visit Charges Office Visits / Consults: 01727 OV L1 Est Physical Exam Const alert, [...] Date Recorded By Document 04/10/22 13:21 DL [id number] 04/10/22 13:24 DL Document 04/15/22 13:50 BMF [id number] 01/17/23 13:57 BMF Document 04/25/22 08:01 AK [id number] 04/25/22 08:14 AK 04/10/22 04/15/22 04/25/22 13:21 13:50 08:01 WC - Today's Visit Information Type of service Follow-up Visit Follow-up Visit Follow-up Visit (Physician/PRODUCTION INSPECTOR (Physician/PRODUCTION INSPECTOR (Physician/PRODUCTION INSPECTOR ) ) ) Arrival Mode Wheelchair Wheelchair [...] Date Recorded By Document 04/10/22 13:21 DL [id number] 04/10/22 13:24 DL Document 04/15/22 13:50 [facility] [id number] 04/15/22 13:57 BMF Document 04/25/22 08:01 AK [id number] 04/25/22 08:14 AK 04/10/22 04/15/22 04/25/22 13:21 [...] (67-100%) Large (67-100%) -Granulation Quality Red Red All[place],Red -Slough/Fibrin Yes Yes Yes -Necrosis Amt Small [...] Date Recorded By Document 04/10/22 13:51 MW [id number] 04/10/22 14:01 MW Document 04/15/22 14:47 [id number] 04/15/22 14:51 JF 04/10/22 04/15/22 13:51 14:47 [...] Recorded Date Recorded By Document 04/10/22 14:09 [facility] [id number] 04/10/22 14:11 BMF Document 04/25/22 08:32 ML [id number] 04/25/22 08:34 ML 04/10/22 04/25/22 14:09 08:32 Wound Care Center Nurse 3 #5- R ischium -Ulcer Cleansing Rinsed/ Rinsed/ Irrigated with Irrigated with Saline Saline -Foul Odor after Cleansing No No -Primary Dressing Applied Mepilex Border -Other Dressing DAKINS MOIST daykins0.25, GAUZE DRSG PER moistened guaze DL FLARE MAKER .abd -Primary Dressing Covered/Secured with Dry Gauze, [...] Cosigner Signature (if applicable): CC: ~ Signed [facility] Work Phone: 1(956) 908-911601-20-2023 History and physical note Author Dr. Messina [facility] April 17, 2022 11:41pm Note Date/Time April 15, 2022 3 :40pm [facility] [address] [place] [address] H&P Exam - Wound Care 04/15/22 1533 MR#: [id number] Acct: [id number] Name: JORGE COVINGTON Rep #:[id number] 3 : 1955 66 From: Popeye Walker PCP: Dr. Brian Cardona MD Status:RE G RCR Location: History of Present Illness Date of Service: 04/15/22 Chief Complaint: WOUND CENTER CONSULT Referring Provider: CARLOS Crouch. Windows Application Administrator: Dr. Messina Right ischial pressure sore, Stage [...] granulation tissue. extends to the ischial bone. PFSH Medical History Bedridden Pressure sore Right ischial [...] GG 12 billion cell-inulin 200 mg capsule (pijajo.comI Love QC) 1 cap PO DAILY 30 days #30 [...] Start: 04/10/22 13:06 Freq: Status: Active Protocol: BRYEXRené Activity Type Activity Date Activity User E-sign Co-sign Detail Recorded Client Recorded Date Recorded By Document 04/10/22 13:21 DL [id number] 04/10/22 13:24 DL Document 04/15/22 13:50 [facility] [id number] 04/15/22 13:57 [facility] 04/10/22 04/15/22 13:21 13:50 WC - Today's Visit Information Type of service Follow-up Visit Follow-up Visit (Physician/PRODUCTION INSPECTOR (Physician/PRODUCTION INSPECTOR ) ) Arrival Mode Wheelchair Wheelchair Transfer [...] Date Recorded By Document 04/10/22 13:21 DL [id number] 04/10/22 13:24 DL Document 04/15/22 13:50 [facility] [id number] 04/15/22 13:57 BM 04/10/22 04/15/22 13:21 13:50 Wound Center Nurse [...] Date Recorded By Document 04/10/22 13:51 MW [id number] 04/10/22 14:01 MW Document 04/15/22 14:47 JF [id number] 04/15/22 14:51 JF 04/10/22 04/15/22 13:51 14:47 [...] Recorded Date Recorded By Document 04/10/22 14:09 [facility] [id number] 04/10/22 14:11 [facility] 04/10/22 14:09 Wound Care Nurse 3 #5- R ischium -Ulcer Cleansing Rinsed/ Irrigated with Saline -Foul Odor after Cleansing No -Primary Dressing Applied Mepilex Border -Other Dressing DAKINS MOIST GAUZE DRSG PER DL FLARE MAKER -Primary Dressing Covered/Secured with Dry Gauze, Secured with Tape -Mepilex Border 1 Treatment Response Procedure Tolerated Well Pain Scale: 0-10 Numeric Is Patient Pain Free? Yes WC - Visit Discharge Discharge Condition Stable Ambulatory Status Wheelchair Transportation TRANSPORT Facility Type Home Health Lab / Micro Data Attestation: I reviewed the patient's lab results. Charges/Coding Visit Charges Office Visits / Consults: 10987 OV L5 New (25 Modifier ICD-10 - L89.314, M86.9, Z74.01, F17.200) Procedures Integumentary 111xxx-113xx: 35622 Lillian musc/fascia 20 sq cm/< (ICD-10 - L89.314, M86.9, Z74.01, F17.200) Add On Codes: 52731 Lillian musc/fascia add-on (X2 units ICD-10 - [...] I suspect osteomyelitis and the need for fdc IV antibiotics through the use of a [...] have deleterious effects on wound healing. 04/17/22 6761 <Electronically signed by Popeye Messina MD> Cosigner Signature (if applicable): CC: ~ Signed [facility] Work Phone: 1(567) 150-739201-12-2023 Progress note Author Cristy Verma [facility] April 10, 2022 4:47pm Note Date/Time April 10, 2022 4 :47pm [facility] [address] [place] [address] Progress Note - Wound Care 04/10/22 1633 MR#: [id number] Acct: [id number] Name: JORGE COVINGTON Rep #:[id number] 9 : 1955 66 From: Cristy GONZALEZ PCP: Dr. Brian Cardona MD Status:RE G RCR Location: History [...] 35.5 Charges/Coding Wound Center CF Procedures 96XXX-98XXX: 33823 RMVL DEVITAL TIS 20 CM/< Multi Select Codes Wound Center CF Procedures 96XXX-98XXX: 13121 RMVL DEVITAL TIS 20 CM/< Physical Exam [...] Date Recorded By Document 04/10/22 13:21 DL [id number] 04/10/22 13:24 DL 04/10/22 13:21 WC - Today's Visit Information Type of service Follow-up Visit (Physician/PRODUCTION INSPECTOR ) Arrival Mode Wheelchair Transfer Assistance Billy [...] Date Recorded By Document 04/10/22 13:21 DL [id number] 04/10/22 13:24 DL 04/10/22 13:21 Wound Center [...] Date Recorded By Document 04/10/22 13:51 MW [id number] 04/10/22 14:01 MW 04/10/22 13:51 Wound Center [...] Recorded Date Recorded By Document 04/10/22 14:09 [facility] [id number] 04/10/22 14:11 [facility] 04/10/22 14:09 Wound Care Nurse 3 #5- R BUTTOCK -Ulcer Cleansing Rinsed/ Irrigated with Saline -Foul Odor after Cleansing No -Primary Dressing Applied Mepilex Border -Other Dressing DAKINS MOIST GAUZE DRSG PER DL FLARE MAKER -Primary Dressing Covered/Secured with Dry Gauze, Secured [...] new symptoms or signs of infection arise. 04/10/22 1647 <Electronically signed by Cristy GONZALZE> Cosigner Signature (if applicable): CC: ~ Signed [facility] Work Phone: [phone]) 954-373902-27-2021 NotePatient Outreach (COVAMN) JORGE COVINGTON ([id number]) 1955 M Date Time Provider Department 05/26/20 [...] Fully Assessed Order(s):SARS-COVID VACCINE 1ST DOSE APPT [68636HQU] Order #: [id number] FUTURE Prescriptions as of 05/26/2020 Sig: PANTOPRAZOLE [...] pneumoniae (HCC) [*01/23/2019 More... Encounter Status:Closed by [employer], PRODUSER on 05/29/20[facility] Consult note [facility] Medical Records Department [address] [place] [address] Consultation - Palliative Care 01/19/25 0800 MR#: [id number] Acct: [id number] Name: JORGE COVINGTON Rep #:[id number] 2 : 1955 69 From: Susan MARTIN PCP: Dr. Brian Cardona MD Status:AD M [place] Location: [address] Medical History Urinary tract infection Scoliosis Fusion of spine, cervical region Thoracic myelopathy [...] BIDCM cholestero l 02/08/22 08/02/24 History (Vascepa) omeprazole 40 mg capsule,delayed 40 mg PO DAILY reflux 08/02/24 08/02/24 History release baclofen 20 mg tablet 20 mg PO BID PRN pain Unknown History meclizine 25 mg tablet 25 mg PO TID PRN dizziness # 20 tabs 08/07/24 Unknown Rx nitrofurantoin macrocrystal 50 mg 50 mg PO QHS prevent infection 08/29/24 Unknown History capsule mecobalamin (vitamin B12) 500 mcg mcg PO DAILY supplem ent 01/17/25 Unknown History chewable tablet Allergy/AdvReac Type Severity Reaction Status Date / Time Environmental Allergies: Allergy NEEDS Verified 01/17/25 10:03 Uncoded (dust) FOLLOW-UP house dust Allergy Other Verified 01/17/25 10:03 pollen extracts Allergy NEEDS Verified 01/17/25 10:03 FOLLOW-UP Family History Mother CVA (cerebral vascular accident) Hypertension Father Hypertension Prostate CA Surgical History Chronic suprapubic catheter S/P colostomy History of back surgery Hx of neck surgery Hx of spinal surgery Social History household members: spouse Smoking Status: Former smoker alcohol intake: never substance use type: does not use ROS Constitutional Constitutional: Reports fatigue Eyes Eyes: Reports systems reviewed and no addt'l complaints, except as documented ENT HEENT: Reports systems reviewed and no addt'l complaints, except as documented Cardiovascular Cardiovascular: Reports dyspnea and leg edema Respiratory/Chest Respiratory/Chest: Reports chest congestion, cough and dyspnea Gastrointestinal Gastrointestinal: Reports other Details: Colostomy Genitourinary Genitourinary: Reports other Details: Resolving. Benson catheter in place Musculoskeletal Musculoskeletal: Reports other Details: Paraplegia from the waist down Integumentary Integumentary: Reports wounds Neurologic Neurologic: Reports weakness Psychiatric Psychiatric: Reports as per HPI Endocrine Endocrinology: Reports as per HPI Hematologic/Lymphatic Hematologic/Lymphatic: Reports as per HPI Allergic/Immunologic Allergic/Immunologic: Reports as per HPI Physical Exam Const alert and oriented x3 General Appearance: cooperative HEENT normocephalic Eyes PERRL Neck supple General: trachea midline Lymph Lymphatic: no lymphadenopathy noted Resp Auscultation: rales and diminished lung sounds Cardio regular rate, regular rhythm, S1 normal heart sound and S2 normal heart sound GI non-tender GI Narrative: Colostomy left lower quadrant Extremity normal capillary refill General Extremity: edema Peripheral Pulses: Yes pulses 2+ throughout Skin no rashes or lesions noted Wounds: wounds noted Neuro Neuro Narrative: dysarthric speech , paraplegia. Psych affect normal Charges/Coding Palliative Care Palliative Care: 73714 New Pt Consult 80+ min HPI Current admission Current Code Status: Full code Associated Diagnosis: complicated UTI Consult Data Date of Consult: 01/19/25 Location of consult: PCU Reason for referral: goals of care Referral source: Palliative care diagnosis (Summary list): complicated UTI, stasis ulcers Palliative care services/treatment (Accepted, as consult): accepted HPI Narrative HPI Narrative: PAIN ASSESSMENT: Denies pain today. Prior to meeting with the pt at bedside, I reviewed prior documentation, labs and radiological studies. 10 was admitted to the hospital on 01/17/2025 for complicated UTI. I then met with the pt, Lamont at bedside. I introduced myself and the concept ofpalliative care in which he voluntarily accepted our services. Lamont is dishelvedin appearance. He is aao x 3. I did note him to be dysarthric. He was able togive me complete hx of his injury causing paraplegia. We had a discussion abouthis daily routine. We then discussed how he was feeling today in which she states thathe is feeling much better. He does state that he has been producing a little bit of sputum and hehas a slight cough. I did encourage himto use his I-S and Acapella. He does state that his , Dasia is his POA if he is unable to make decisions for himself. He did give me permission to contact h is to discuss his care. I then contacted his ,Abraham. I did want to clarify what Lamont had told me compared to what I wastold and report from the social work team. She did statethat him had not done the things that he described in a couple of months. She states that he was previously able to get up to his motorized wheelchair and do meals which she had prepared for him but he is currently unable to do so becauseof the wound on his buttocks and UTIs. She states that he is currently in that the majority of the time unless she gets them out to do things outside of the home. She states that before she leaves for the day for work she gets him his breakfast and then prepares a cooler with food and water for the day. She did have questions about the possibility of obtaining a life alert system of some sort. I did give her some information about the [employer] life alert and I also reached out to social work to provide any resources that they have. Dasia stated appreciation. We then discussed the possibility of outpatient palliativecare services as an additional layer of support for her and Lamont. Dasia stated agreement. I did give her a list of agencies that would be able to support dmitriy on outpatient basis given Lamont's chronic illnesses. She did choose [facility] referral was sent over to them. I also sent them a report of the patient current status. All questions the patient and his had were ans wered. Palliative care will continue to follow for an additional layer support during hospitalization. * Hx of a [address] [place] [address] [employer] [address]. sustained a spinal cord injury. Was able to walk with a walker for a period of time. He then had to have surgery to have a cyst removed from spinal column. There were complications and Is now a paraplegic. Does have minimal movement to bilateral lower extremities so he is not a complete para. per hospitalist: JORGE COVINGTON, is a 69 M who presents with change in mental status. This is a 69-year-old male with history of chronic Benson and diverting colostomy presents with confusion at home. Visiting nurse saw him and sent him to the emergency room. In emergency room, patient had a lactic acid of 2.1, he was ordered IV fluids as well as antibiotics given concern for urinary tract infection with ceftriaxone. Patient is a poor historian. Palliative Assessment Advanced Directive - Current Admission Advance Directive: Advance Directive ON ADMISSION - REFERENCE 3 Do you have a Healthcare No 01/17/25 13:21 Living Will? 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 Do You Want Additional Declined 01/17/25 13:21 Information on Advanced Directives or Healthcare Proxy/DPOA comments: Psychosocial/Spiritual Information Living situation/Marital status: [place]ographic location[place] Supports: Patient has his Caodaism/Eveline or spiritual preference: Jehovah'S Witness Spiritual distress: dad was a performance test engineer. Denies distress Prior functional status: up to wheelchair during the day. Able to heat up prepared meals by self Information about the patient as a person: Have a ramp and likes to go outside. Watches TV some during the day. 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 Will continue to follow as clinical picture evolves. Dyspnea symptoms: Mild Constipation symptoms: None Nausea symptoms: None Vomiting symptoms: None Depression symptoms: None Anorexia symptoms: None Cough symptoms: Mild Insomnia symptoms: None Diarrhea symptoms: None Fatigue symptoms: Mild Weakness symptoms: Severe Confusion symptoms: Mild Objective Data Objective Data Vital Signs: Vital Signs Temp Pulse Resp BP Pulse Ox O2 Del Method O2 Flow Rate 97.3 F L 89 18 134/57 H 94 Nasal Cannula 2 01/19/25 03:26 01/19/25 03:26 01/19/25 03:26 01/19/25 03:26 01/19/25 03:26 01/19/25 03:26 01/19/25 03:26 Oxygen Flow Rate (L/min) 2 Oxygen Delivery Method Nasal Cannula Weight: 231 lb 0.711 oz Body Mass Index (BMI) 37.3 Intake & Output: Intake and Output for Last 24 Hours 01/17/25 01/18/25 01/19/25 23:59 23:59 23:59 Intake Total 3450.0 / 3450.0 50 / 50 Output Total 700 / 1300 3850 / 3850 400 / 400 Balance 2750.0 / 2150.0 -3800 / -3800 -400 / -400 Lab / Micro Data Attestation: I reviewed the patient's lab results. 01/19/25 05:06 01/19/25 05:06 Labs: Laboratory Results - last 24 hr 01/19/25 05:06: WBC 8.8, RBC 4.65, Hgb 12.5 L, Hct 39.8 L, MCV 85.6, MCH 26.9 L,MCHC 31.4 L, RDW Std Deviation 51.1 H, RDW Coeff of Josue 16.5 H, Plt Count 421, MPV 9.6, Immature Gran % (Auto) 1.000 H,Neut % (Auto) 64.0, Lymph % (Auto) 21.6, [place] % (Auto) 10.1 H, Eos % (Auto) 2.6, Baso % (Auto) 0.7,Absolute Neuts (auto) 5.6, Absolute Lymphs (auto) 1.89, Nucleated RBC % 0, Sodium 136, Potassium 4.2, Chloride 99, Carbon Dioxide 25.1, Anion Gap 12, BUN 12, Creatinine 0.58 L, Estim Creat Clear Avjr756.25, Est GFR (MDRD) Non-Af 106, BUN/Creatinine Ratio 20.0, Glucose 174 H, Calcium 9.3 Micro: Microbiology 01/17/25 10:51 Urine Catheter - Catheter Urine Culture - Preliminary Gram negative edward GNR lactose credit control assistant Impressions & Recommendations Patient & Family Issues discussed with the patient and family: out patient services and goals of care Patient goal: Return home Family goal: return home with additional services. Ethical & Legal Ethical and legal: none Impressions Impressions: pt would benefit from additional services Recommentation Palliative recommendations: Palliative care outpatient services. Encouter Achieved as a result of this Palliative Care Encounter: [ 3810-1878, 8021-0640, [id number]] minutes were spent in total for this visit which consisted, primarily of counseling and education dealing with the complex and emotionally intense issues of symptommanagement and palliative care in the setting of serious and potentially life-threatening illness. Review of documentation, labs and radiological studies. ?Patient/family had the opportunity to ask questions Plan (1) Sepsis: PLAN: *medical mgmt per primary team (2) Acidosis, lactic: PLAN: *medical mgmt per primary team (3) Complicated urinary tract infection: PLAN: *medical mgmt per primary team (4) Palliative care encounter: PLAN: *referral to Outpatient Palliative services with [facility] *recommend Life Alert (5) Goals of care, counseling/discussion: PLAN: *return home with palliative care outpatient 01/19/25 1055 Cosigner Signature (if applicable): CC: Dr. Brian Cardona MD~ [facility] Medical Records Department [address] [place] [address] Counseling Note - Pharmacy 01/20/25 1221 MR#: [id number] Acct: [id number] Name: JORGE COVINGTON Rep #:[id number] : 1955 69 From: Shaun Bansal PCP: Dr. Brian Cardona MD Status:AD M IN Y Location: [place] [address] Pharmacy [facility] Counseling Pharmacy Service has performed discharge medication reconciliation and counseling for this patient. The patient's discharge medication list was reviewed for discrepancies and discrepancies were resolved. The patient was counseled on the following discharge medications and changes in medications for homegoing were reviewed. The Reason for Use, instructions for use, and potential side effects were reviewed for all new medications. The patient's questions regarding all of their medications were answered. 1. Levofloxacin 500 mg PO daily x 3 days 2. Acetaminophen 1300 mg PO Q8H PRN pain The patient was able to verbally demonstrate an understanding of their dischargemedications. Medications at Discharge Home Medications levothyroxine 125 mcg tablet 125 mcg PO DAILY THYROID 12/17/17 tamsulosin 0.4 mg capsule 0.4 mg PO BID PROSTATE 12/17/17 icosapent ethyl 1 gram capsule (Vascepa) 2 g PO BIDCM cholesterol 02/08/22 omeprazole 40 mg capsule,delayed release 40 mg PO DAILY reflux 08/02/24 baclofen 20 mg tablet 20 mg PO BID PRN pain 08/07/24 meclizine 25 mg tablet 25 mg PO TID PRN dizziness #20 tabs 08/07/24 nitrofurantoin macrocrystal 50 mg capsule 50 mg PO QHS prevent infection 08/29/24 Held on 01/20/25. Instructions: Resume on 01/24/25. mecobalamin (vitamin B12) 500 mcg chewable tablet mcg PO DAILY supplement 01/17/25 acetaminophen 325 mg tablet 1,300 mg (4 x 325 mg) PO Q8H PRN PRN Pain 1-10 Or Fever>100.7 #0 tabs 01/20/25 levofloxacin 500 mg tablet 500 mg PO DAILY #3 tabs 01/20/25 01/20/25 1221 r> Date _ Shaun Adlertereshaina Signature (if applicable): Date CC: ~ [facility]igned [facility] Author Susan mcclelland [facility] Note Date/Time January 19, 2025 1 1:55am [facility] Medical Records Department [address] [place] [address] Consultation - Palliative Care 01/19/25 0800 MR#: [id number] Acct: [id number] Name: JORGE COVINGTON Rep #:[id number] : 1955 69 From: Susan MARTIN PCP: Dr. Brian Cardona MD Status:AD M IN Location: [address] Medical History Urinary tract infection Scoliosis Fusion of spine, cervical region Thoracic myelopathy [...] BIDCM cholestero l 02/08/22 08/02/24 History (Vascepa) omeprazole 40 mg capsule,delayed 40 mg PO DAILY reflux 08/02/24 08/02/24 History release baclofen 20 mg tablet 20 mg PO BID PRN pain Unknown History meclizine 25 mg tablet 25 mg PO TID PRN dizziness # 20 tabs 08/07/24 Unknown Rx nitrofurantoin macrocrystal 50 mg 50 mg PO QHS prevent infection 08/29/24 Unknown History capsule mecobalamin (vitamin B12) 500 mcg mcg PO DAILY supplem ent 01/17/25 Unknown History chewable tablet Allergy/AdvReac Type Severity Reaction Status Date / Time Environmental Allergies: Allergy NEEDS Verified 01/17/25 10:03 Uncoded (dust) FOLLOW-UP house dust Allergy Other Verified 01/17/25 10:03 pollen extracts Allergy NEEDS Verified 01/17/25 10:03 FOLLOW-UP Family History Mother CVA (cerebral vascular accident) Hypertension Father Hypertension Prostate CA Surgical History Chronic suprapubic catheter S/P colostomy History of back surgery Hx of neck surgery Hx of spinal surgery Social History household members: spouse Smoking Status: Former smoker alcohol intake: never substance use type: does not use ROS Constitutional Constitutional: Reports fatigue Eyes Eyes: Reports systems reviewed and no addt'l complaints, except as documented ENT HEENT: Reports systems reviewed and no addt'l complaints, except as documented Cardiovascular Cardiovascular: Reports dyspnea and leg edema Respiratory/Chest Respiratory/Chest: Reports chest congestion, cough and dyspnea Gastrointestinal Gastrointestinal: Reports other Details: Colostomy Genitourinary Genitourinary: Reports other Details: Resolving. Benson catheter in place Musculoskeletal Musculoskeletal: Reports other Details: Paraplegia from the waist down Integumentary Integumentary: Reports wounds Neurologic Neurologic: Reports weakness Psychiatric Psychiatric: Reports as per HPI Endocrine Endocrinology: Reports as per HPI Hematologic/Lymphatic Hematologic/Lymphatic: Reports as per HPI Allergic/Immunologic Allergic/Immunologic: Reports as per HPI Physical Exam Const alert and oriented x3 General Appearance: cooperative HEENT normocephalic Eyes PERRL Neck supple General: trachea midline Lymph Lymphatic: no lymphadenopathy noted Resp Auscultation: rales and diminished lung sounds Cardio regular rate, regular rhythm, S1 normal heart sound and S2 normal heart sound GI non-tender GI Narrative: Colostomy left lower quadrant Extremity normal capillary refill General Extremity: edema Peripheral Pulses: Yes pulses 2+ throughout Skin no rashes or lesions noted Wounds: wounds noted Neuro Neuro Narrative: dysarthric speech , paraplegia. Psych affect normal Charges/Coding Palliative Care Palliative Care: 96106 New Pt Consult 80+ min HPI Current admission Current Code Status: Full code Associated Diagnosis: complicated UTI Consult Data Date of Consult: 01/19/25 Location of consult: PCU Reason for referral: goals of care Referral source: Palliative care diagnosis (Summary list): complicated UTI, stasis ulcers Palliative care services/treatment (Accepted, as consult): accepted HPI Narrative HPI Narrative: PAIN ASSESSMENT: Denies pain today. Prior to meeting with the pt at bedside, I reviewed prior documentation, labs and radiological studies. 10 was admitted to the hospital on 01/17/2025 for complicated UTI. I then met with the pt, Lamont at bedside. I introduced myself and the concept ofpalliative care in which he voluntarily accepted our services. Lamont is dishelvedin appearance. He is aao x 3. I did note him to be dysarthric. He was able togive me complete hx of his injury causing paraplegia. We had a discussion abouthis daily routine. We then discussed how he was feeling today in which she states that he is feeling much better. He does state that he has been producing a little bit of sputum and he has a slight cough. I did encourage himto use his I-S and Acapella. He does state that his , Dasia is his POA if he is unable to make decisions for himself. He did give me permission to contact his to discuss his care. I then contacted his ,Abraham. I did want to clarify what Lamont had told me compared to what I was told and report from the social work team. She did statethat him had not done the things that he described in a couple of months. She states that he was previously able to get up to his motorized wheelchair and do meals which she had prepared for him but he is currently unable to do so becauseof the wound on his buttocks and UTIs. She states that he is currently in that the majority of the time unless she gets them out to do things outside of the home. She states that before she leaves for the day for work she gets him his breakfast and then prepares a cooler with food and water for the day. She did have questions about the possibility of obtaining a life alert system of some sort. I did give her some information about the [employer] life alert and I also reached out to social work to provide any resources that they have. Dasia stated appreciation. We then discussed the possibility of outpatient palliativecare services as an additional layer of support for her and Lamont. Dasia stated agreement. I did give her a list of agencies that would be able to support dmitriy on outpatient basis given Lamont's chronic illnesses. [facility] was [facility] over to them. I also sent them a report of the patient current status. All questions the patient and his had were answered. Palliative care will continue to follow for an additional layer support during hospitalization. * Hx of a [place] [address] [employer] [address] sustained a spinal cord injury. Was able to walk with a walker for a period of time. He then had to have surgery to have a cyst removed from spinal column. There were complications and Is now a paraplegic. Does have minimal movement to bilateral lower extremities so he is not a complete para. per hospitalist: JORGE COVINGTON, is a 69 M who presents with change in mental status. This is a 69-year-old male with history of chronic Benson and diverting colostomy presents with confusion at home. Visiting nurse saw him and sent him to the emergency room. In emergency room, patient had a lactic acid of 2.1, he was ordered IV fluids as well as antibiotics given concern for urinary tract infection with ceftriaxone. Patient is a poor historian. Palliative Assessment Advanced Directive - Current Admission Advance Directive: Advance Directive ON ADMISSION - REFERENCE 3 Do you have a Healthcare No 01/17/25 13:21 Living Will? 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 Do You Want Additional Declined 01/17/25 13:21 Information on Advanced Directives or Healthcare Proxy/DPOA comments: Psychosocial/Spiritual Information Living situation/Marital status: [place]ographic location: [place] Supports: Patient has his Caodaism/Eveline or spiritual preference: Jehovah'S Witness Spiritual distress: dad was a performance test engineer. Denies distress Prior functional status: up to wheelchair during the day. Able to heat up prepared meals by self Information about the patient as a person: Have a ramp and likes to go outside. Watches TV some during the day. 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 Will continue to follow as clinical picture evolves. Dyspnea symptoms: Mild Constipation symptoms: None Nausea symptoms: None Vomiting symptoms: None Depression symptoms: None Anorexia symptoms: None Cough symptoms: Mild Insomnia symptoms: None Diarrhea symptoms: None Fatigue symptoms: Mild Weakness symptoms: Severe Confusion symptoms: Mild Objective Data Objective Data Vital Signs: Vital Signs Temp Pulse Resp BP Pulse Ox O2 Del Method O2 Flow Rate 97.3 F L 89 18 134/57 H 94 Nasal Cannula 2 01/19/25 03:26 01/19/25 03:26 01/19/25 03:26 01/19/25 03:26 01/19/25 03:26 01/19/25 03:26 01/19/25 03:26 Oxygen Flow Rate (L/min) 2 Oxygen Delivery Method Nasal Cannula Weight: 231 lb 0.711 oz Body Mass Index (BMI) 37.3 Intake & Output: Intake and Output for Last 24 Hours 01/17/25 01/18/25 01/19/25 23:59 23:59 23:59 Intake Total 3450.0 / 3450.0 50 / 50 Output Total 700 / 1300 3850 / 3850 400 / 400 Balance 2750.0 / 2150.0 -3800 / -3800 -400 / -400 Lab / Micro Data Attestation: I reviewed the patient's lab results. 01/19/25 05:06 01/19/25 05:06 Labs: Laboratory Results - last 24 hr 01/19/25 05:06: WBC 8.8, RBC 4.65, Hgb 12.5 L, Hct 39.8 L, MCV 85.6, MCH 26.9 L,MCHC 31.4 L, RDW Std Deviation 51.1 H, RDW Coeff of Josue 16.5 H, Plt Count 421, MPV 9.6, Immature Gran % (Auto) 1.000 H, Neut % (Auto) 64.0, Lymph % (Auto) 21.6, [place] % (Auto) 10.1 H, Eos % (Auto) 2.6, Baso % (Auto) 0.7, Absolute Neuts (auto) 5.6, Absolute Lymphs (auto) 1.89, Nucleated RBC % 0, Sodium 136, Potassium 4.2, Chloride 99, Carbon Dioxide 25.1, Anion Gap 12, BUN 12, Creatinine 0.58 L, Estim Creat Clear Calc 100.25, Est GFR (MDRD) Non-Af 106, BUN/Creatinine Ratio 20.0, Glucose 174 H, Calcium 9.3 Micro: Microbiology 01/17/25 10:51 Urine Catheter - Catheter Urine Culture - Preliminary Gram negative edward GNR lactose credit control assistant Impressions & Recommendations Patient & Family Issues discussed with the patient and family: out patient services and goals of care Patient goal: Return home Family goal: return home with additional services. Ethical & Legal Ethical and legal: none Impressions Impressions: pt would benefit from additional services Recommentation Palliative recommendations: Palliative care outpatient services. Encouter Achieved as a result of this Palliative Care Encounter: [ 4826-3036, 2647-3108, 6691-3819] minutes were spent in total for this visit which consisted, primarily of counseling and education dealing with the complex and emotionally intense issues of symptom management and palliative care in the setting of serious and potentially life-threatening illness. Review of documentation, labs and radiological studies. ?Patient/family had the opportunity to ask questions Plan (1) Sepsis: PLAN: *medical mgmt per primary team (2) Acidosis, lactic: PLAN: *medical mgmt per primary team (3) Complicated urinary tract infection: PLAN: *medical mgmt per primary team (4) Palliative care encounter: PLAN: *referral to Outpatient Palliative services with [facility] *recommend Life Alert (5) Goals of care, counseling/discussion: PLAN: *return home with palliative care outpatient 01/19/25 1055 <Electronically signed by Susan MARTIN> Cosigner Signature (if applicable): CC: Dr. Brian Cardona MD~ Signed [facility] Work Phone: Consult note Author Shaun Bansal [facility] Note Date/Time January 20, 2025 7 :09pm [facility] Medical Records Department [address] [place] [address] Counseling Note - Pharmacy 01/20/25 1221 MR#: [id number] Acct: [id number] Name: JORGE COVINGTON Rep #:[id number] : 1955 69 From: Shaun Bansal PCP: Dr. Brian Cardona MD Status:AD M IN Location: [address] Pharmacy Service has performed discharge medication reconciliation and counseling for this patient. The patient's discharge medication list was reviewed for discrepancies and discrepancies were resolved. The patient was counseled on the following discharge medications and changes in medications for homegoing were reviewed. The Reason for Use, instructions for use, and potential side effects were reviewed for all new medications. The patient's questions regarding all of their medications were answered. 1. Levofloxacin 500 mg PO daily x 3 days 2. Acetaminophen 1300 mg PO Q8H PRN pain The patient was able to verbally demonstrate an understanding of their dischargemedications. Medications at Discharge Home Medications levothyroxine 125 mcg tablet 125 mcg PO DAILY THYROID 12/17/17 tamsulosin 0.4 mg capsule 0.4 mg PO BID PROSTATE 12/17/17 icosapent ethyl 1 gram capsule (Vascepa) 2 g PO BIDCM cholesterol 02/08/22 omeprazole 40 mg capsule,delayed release 40 mg PO DAILY reflux 08/02/24 baclofen 20 mg tablet 20 mg PO BID PRN pain 08/07/24 meclizine 25 mg tablet 25 mg PO TID PRN dizziness #20 tabs 08/07/24 nitrofurantoin macrocrystal 50 mg capsule 50 mg PO QHS prevent infection 08/29/24 Held on 01/20/25. Instructions: Resume on 01/24/25. mecobalamin (vitamin B12) 500 mcg chewable tablet mcg PO DAILY supplement 01/17/25 acetaminophen 325 mg tablet 1,300 mg (4 x 325 mg) PO Q8H PRN PRN Pain 1-10 Or Fever>100.7 #0 tabs 01/20/25 levofloxacin 500 mg tablet 500 mg PO DAILY #3 tabs 01/20/25 01/20/25 1221 <Electronically signed by Shaun Jean r> Date _ Shaun Adlertereshaina Signature (if applicable): Date CC: ~ Signed [facility] Work Phone: Discharge summary Author Brooke Lerma [facility] November 24, 2022 3:35pm Note Date/Time November 24, 2022 3: 24pm [facility] Medical Records Department [address] [place] [address] Discharge Summary 11/24/22 1522 MR#: [id number] Acct: [id number] Name: JORGE COVINGTON Rep #:[id number] : 1955 67 From: Brooke GONZALEZ PA-C PCP: Dr. Brian Cardona MD Status:AD IN Location: [place] [address] Providers Date of Admission: 11/21/22 Primary Care Physician: Dr. Brian Cardona MD Consultations 11/22/22 05:43 Consult: Onc/Wound/shrimp picker Routine Comment: Reason for Consult:: new Colostomy/ [...] 04/25/22 arginine 7 gram-glutam 7 gram-CaHMB 1.5 mqug-kbrhz-ca-min oral pwd pkt (Edgar (with collagen)) 1 [...] Provider: Kari Romero Primary Care Provider: Brian Cardona Discharge Orders/Prescriptions Prescriptions: Continued tamsulosin 0.4 [...] Order can be placed): Home, Self Care 11/24/221534 <Electronically signed by Brooke GONZALEZ PA-C> Cosigner Signature (if applicable): CC: HENOK Lerma; Dr. Brian Cardona MD~ Signed [facility] Work Phone: Discharge summary Author Brooke Lerma [facility] November 24, 2022 3:34pm Note Date/Time November 24, 2022 3: 34pm [facility] Medical Records Department [address] [place] [address] Instructions for Home/Discharge Instructions 11/24/221531 MR#: [id number] Acct: [id number] Name: JORGE COVINGTON Rep #:[id number] : 1955 67 From: Brooke GONZALEZ PA-C PCP: Dr. Brian Cardona MD Status:AD M IN Discharge Instructions [...] MD When: Follow-up in 2 weeks. Call [phone] for an appointment Test Results: Test results from this visit will be discussed in further detail at your follow- up appointment, if applicable. Discharge Plan Admission Admit Date/Time: 11/21/22 16:29 Primary Reason for Your Visit: Diverting colostomy Attending Provider: Kari Romero Primary Care Provider: Brian Cardona Discharge Orders/Prescriptions Prescriptions: Continued tamsulosin 0.4 [...] GONZALEZ PA-C>Brooke GONZALEZ PA-C CC: Dr. Brian Cardona MD ~ Signed [facility] Work Phone: Discharge summary Author Hebert Saavedra [facility] Note Date/Time June 09, 2024 11: 32am [facility] Medical Records Department [address] [place] [address] Emergency Department Summary 06/09/24 MR#: [id number] Acct: [id number] Name: JORGE COVINGTON Rep #:[id number] : 1955 68 From: Hebert Saavedra MD PCP: Dr. Brian Cardona MD Status:RE G ER Location: ED [...] however there is a past history of [employer] that he has history of COPD. He [...] similar symptoms: Yes Recent Illness/Hospitalization: No PFSH [facility] Medical History Other acute postprocedural [...] 85.9 H Lymph % (Auto) 5.6 L [place] % (Auto) 6.9 Eos % (Auto) 0.4 [...] Clarity Cloudy Urine pH 7.0 Ur Specific [place] 1.010 Urine Protein 30 H Urine Glucose [...] inspiration. There is family reviewed interpreted by co [id number].) Diagnostic Testing: Clinical Impression(s) from Imaging Studies Chest X-Ray 06/09/24 09:12 IMPRESSION: Stable mild increased markings at the lung bases suggestive of scarring. Right apical scarring. Reading Location: [id number] Management Discussion w/another healthcare provider: Hospitalist (Spoke [...] coverage since she presents from home. Comments:: Sports Reporter was asked to page the hospitalist at [phone]. Discharge Plan Dx/Rx/DC Orders Clinical Impression: Complicated urinary tract infection, Bedridden, Paraplegic spinal paralysis, Colostomy in place, Hyperlipidemia, Spinal cord injury, SIRS (systemic inflammatory response syndrome), Leukocytosis, Decubitus ulcer of right buttock,stage 3, Acidosis, lactic Disposition Disposition: Acute Care Hospital [facility] What to do if you have Problems For any increased pain, shortness of breath, bleeding, nausea or vomiting, chestpain, or any unexpected problems, contact your Primary Care Provider. Call [facility] ([phone]) or report to the closest Emergency Room. Call 911 if necessary. 06/09/24 1132 <Electronically signed by Hebert Saavedra MD> Cosigner Signature (if applicable): CC: Dr. Brian Cardona MD ~ Signed [facility] Work Phone: Discharge summary Author Juliana Shaw [facility] Note Date/Time June 12, 2024 1:3 2pm [facility] Medical Records Department [address] [place] [address] Instructions for Home/Discharge Instructions 06/12/24 1326 MR#: [id number] Acct: [id number] Name: JORGE COVINGTON Rep #:[id number] : 1955 68 From: Juliana Shaw MD PCP: Dr. Brian Cardona MD Status:AD M IN Discharge Instructions [...] Provider: Juliana Shaw Primary Care Provider: Brian Cardona Instructions Patient Instructions: ED Bladder Infection, [...] Recorder Preventi (Urgent) Timeframe: 1 Day Facility: [facility] - Location: Cardiovascular Services Ordered By: Dr. Juliana Shaw Referrals / Follow Up: Brian Cardona MD [Primary Care Provider] - Disposition Disposition (needs filled in before D/C Order can be placed): Home Health Service 06/12/24 1332<Electronically signed by Juilana Shaw MD>Juliana Shaw MD CC: Dr. Brian Cardona MD ~ Signed [facility] Work Phone: Discharge summary [facility] Medical Records Department [address] [place] [address] Discharge Summary 01/20/25 1117 MR#: [id number] Acct: [id number] Name: JORGE COVINGTON Rep #:[id number] : 1955 69 From: Basilio Dill DO PCP: Dr. Brian Cardona MD Status:AD M IN Location: [place] [address] Providers Date of Admission: 01/17/25 Primary Care Physician: Dr. Brian Cardona MD Consultations 01/17/25 13:02 Consult: Onc/Wound/shrimp picker Routine Comment: 01/18/25 15:32 Consult: Inpatient Palliative Care Routine Consulting Provider: Susan Melton Reason for Consult: COPD,paraplegic spinal paralysis,W/C dependent,3rd hospitalization in 6 mo EMERGENT Consult: No Notified: Yes Date Notified: 01/18/25 Time Notified: 15:32 Method of Notification: Text 01/19/25 09:34 Consult: Hospice / Outpatient Palliative Care Routine Consulting Provider: Other Group- Specify Below Reason for Consult: COPD, paraplegic spinal paralysis EMERGENT Consult: No Notified: Yes Date Notified: 01/19/25 Time Notified: 09:34 Method of Notification: Text Comments:: Palliative referral Reason For Visit: UTI Diagnosis Discharge Diagnosis (1) Sepsis: Status: Acute Code(s): A41.9 - Sepsis, unspecified organism Plan: Present on admission. qSOFA of 2 with encephalopathy and a respiratory rate of 22 Likely secondary to UTI. Cultures showing citrobacter freundii, providencia. DC with levofloxacin (2) Urinary tract infection: Status: Inactive Code(s): N39.0 - Urinary tract infection, site not specified Plan: Catheter associated Cultures showing citrobacter freundii, providencia. DC with levofloxacin (3) Metabolic encephalopathy: Status: Acute Code(s): G93.41 - Metabolic encephalopathy Plan: Resolved Secondary to sepsis and UTI Hold potentiating medications including baclofen Plan Debility: Patient is bedbound at baseline. PT OT Hypothyroidism: Continue levothyroxine VTE prophylaxis with enoxaparin DC home with [facility] Medications at Discharge Home Medications levothyroxine 125 mcg tablet 125 mcg PO DAILY THYROID 12/17/17 tamsulosin 0.4 mg capsule 0.4 mg PO BID PROSTATE 12/17/17 icosapent ethyl 1 gram capsule (Vascepa) 2 g PO BIDCM cholesterol 02/08/22 omeprazole 40 mg capsule,delayed release 40 mg PO DAILY reflux 08/02/24 baclofen 20 mg tablet 20 mg PO BID PRN pain 08/07/24 meclizine 25 mg tablet 25 mg PO TID PRN dizziness #20 tabs 08/07/24 nitrofurantoin macrocrystal 50 mg capsule 50 mg PO QHS prevent infection 08/29/24 Held on 01/20/25. Instructions: Resume on 01/24/25. mecobalamin (vitamin B12) 500 mcg chewable tablet mcg PO DAILY supplement 01/17/25 acetaminophen 325 mg tablet 1,300 mg (4 x 325 mg) PO Q8H PRN PRN Pain 1-10 Or Fever>100.7 #0 tabs 01/20/25 levofloxacin 500 mg tablet 500 mg PO DAILY #3 tabs 01/20/25 Hospital Course Operations None Procedures None Summary of Care Provided Hospital Course: Greater than 30-minute spent on discharge patient presents with confusion from home. Patient was found to have a urinary tract infection witha sent to the emergency room. Patient was also clinically septic upon arrival. Patient overall proved, his mental status improved. Patient started ceftriaxone for the urinary tract infection. He alsohad metabolic encephalopathy but that did improve while he was here. Patient overall has done well since he has been here in the hospital. His urine culturegrew out Citrobacter as well as Providencia. Both sensitive to levofloxacin which he will complete for 3 more doses completed 7-day course of antibiotics. Patient is bed ridden at bedside. Patient's takes care of him at home and has a Billy lift. Patient will be discharged home to continue with his home care. Weight / BMI Weight Weight: 104.8 kg Body Mass Index (BMI) 37.3 ABG / Lab / Microbiology Data 01/19/25 05:06 01/19/25 05:06 Microbiology: Microbiology 01/17/25 10:51 Urine Catheter - Catheter Urine Culture - Final Citrobacter freundii Providencia alcalifaciens 01/17/25 10:35 Blood Culture (Wb) - Right Hand Blood Culture - Preliminary No growth in 48 hours. 01/17/25 10:35 Blood Culture (Wb) - Left Hand Blood Culture - Preliminary No growth in 48 hours. D/C Instructions DC O2, CPAP, BIPAP Needs Home O2 Discharge instructions: No Meaningful Use Info Meaningful Use Meaningful Use Diagnoses (Choose all that apply): None applicable Discharge Plan Admission Admit Date/Time: 01/17/25 12:26 Primary Reason for Your Visit: Urinary tract infection Attending Provider: Basilio Dill Primary Care Provider: Brian Cardona Consulting Providers: Susan Melton Discharge Orders/Prescriptions Prescriptions: New acetaminophen 325 mg Tablet 1,300 mg PO Q8H PRN PRN (Reason: Pain 1-10 Or Fever>100.7) Qty: 0 0RF levofloxacin 500 mg tablet 500 mg PO DAILY Qty: 3 0RF Continued tamsulosin 0.4 MG capsule 0.4 mg PO BID levothyroxine 125 MCG tablet 125 mcg PO DAILY Patient Comments: 1 extra pill on Sundays icosapent ethyl [Vascepa] 1 gram Capsule 2 g PO BIDCM baclofen 20 mg tablet 20 mg PO BID PRN meclizine 25 mg tablet 25 mg PO TID PRN (Reason: dizziness) Qty: 20 0RF omeprazole 40 mg capsule,delayed release(DR/EC) 40 mg PO DAILY mecobalamin (vitamin B12) 500 mcg tablet,chewable PO DAILY Held nitrofurantoin macrocrystal 50 mg capsule 50 mg PO QHS Hold Instructions: Resume on 01/24/25. Referrals / Follow Up: Brian Cardona MD [Primary Care Provider, Medical] - Within 2 Weeks Hyperbaric Medicine,[place] [facility] and [Non-Staff, Wound Care] - 02/06/25 3:15 pm Disposition Disposition (needs filled in before D/C Order can be placed): Home Health Service Charges/Coding Visit Charges Inpatient E&M: 76217 Disch Hosp >30min 01/20/25 1133 Cosigner Signature (if applicable): CC: Dr. Basilio Dill DO; Dr. Brian Cardona MD~ Signed ADDENDUM by Dr. Basilio Dill DO on 01/20/25 at 1350 Addendum Oxygen testing reviewed and patient is ambulatory in home and in the community and requires home oxygen with portability. Patient requires 2 L nasal cannula continuously. 01/20/25 1350 Cosigner Signature (if applicable): cc: Dr. Basilio Dill DO; Dr. Brian Cardona MD ~* [facility]igned [facility] Hebert Saavedra [facility] Note Date/Time January 17, 2025 1 :04pm [facility] Medical Records Department [address] [place] [address] Emergency Department Summary 01/17/25 MR#: [id number] Acct: [id number] Name: JORGE COVINGTON Rep #:[id number] : 1955 69 From: Hebert Saavedra MD PCP: Dr. Brian Cardona MD Status:RE G ER Location: ED HPI History of Present Illness Chief Complaint: Alt LOC Detail of Chief Complaint: Sent to ER because of change in mental Informant: patient and EMS Onset/Context/Timing Onset: Today Context: Sudden Onset Timing: Intermittent (Charge nurse states he was alert and oriented x 3 when shesaw him. He was not when I saw him.) Quality: Disorientation, recent UTI positive for Klebsiella sensitive to Rocephin Current Severity: Mild Maximum Severity: Moderate Worsened by: Presumed UTI since his urine looks like cream of mushroom soup Relieved by: Patient has delirium by definition Associated Symptoms Associated Symptoms: Patient is not a good informant at the time of my exam Narrative Narrative: Patient is a 69-year-old male. He has history of pressure sores gluteal area since he has bed ridden. He has a foot drop and has a brace. He also has history of osteomyelitis of the right pelvis. He has a chronic indwelling Foleyand a diverting colostomy. Presently he does not know month day of the week dayof the month or year. This is different than what he was able to perform for the charge nurse and his what prompted the visiting nurse to send him to the emergency department. Reportedly he is on an antibiotic. He does not know whatantibiotic he is on. Patient is a pleasant 69-year-old male. His blood pressure slightly elevated istachypneic. He is not febrile. He is not hypoxic on room air either. Prior similar symptoms: Yes Recent Illness/Hospitalization: Yes [facility] Medical History Scoliosis Fusion of spine, cervical region Thoracic myelopathy [...] dizziness # 20 tabs 08/07/24 Unknown Rx nitrofurantoin macrocrystal 50 mg 50 mg PO QHS 5 Unknown History capsule Allergy/AdvReac Type Severity Reaction Status Date / Time Environmental Allergies: Allergy NEEDS Verified 01/17/25 10:03 Uncoded (dust) FOLLOW-UP house dust Allergy Other Verified 01/17/25 10:03 pollen extracts Allergy NEEDS Verified 01/17/25 10:03 FOLLOW-UP Family History Mother CVA (cerebral vascular accident) Hypertension Father Hypertension Prostate CA Surgical History Chronic suprapubic catheter S/P colostomy History of back surgery Hx of neck surgery Hx of spinal surgery Social History household members: spouse Smoking Status: Former smoker alcohol intake: never substance use type: does not use ROS ROS ED Review of Systems ROS Unobtainable: due to mental status Constitutional Constitutional ED: Denies chills, fever(s) or subjective Eyes Eyes: Denies change in vision ENT ENT ED: Denies rhinorrhea or sore throat Cardiovascular Cardiovascular: Denies chest pain or palpitations Respiratory/Chest Respiratory/Chest: Denies cough, dyspnea or dyspnea on exertion Gastrointestinal Gastrointestinal: Denies abdominal pain, nausea or vomiting Genitourinary Genitourinary ED: Reports other Details: Indwelling Benson, urine is white in color Musculoskeletal Musculoskeletal: Denies arthralgias or myalgias Integumentary Denies rash Neurologic Neurologic: Reports weakness Psychiatric Psychiatric: Reports depression Hematologic/Lymphatic Hematologic/Lymphatic: Reports systems reviewed and no addt'l complaints, exceptas documented EXAM Physical Exam Const Vital Signs: 01/17/25 09:58 01/17/25 10:02 01/17/25 10:13 Temperature 97.6 F L 97.6 F L Temperature Source Oral Oral Pulse Rate 79 80 79 Respiratory Rate 22 H 21 H 19 H Blood Pressure 130/77 H 130/77 H Blood Pressure Mean 94 94 Pulse Ox 90 91 92 Oxygen Delivery Method Room Air Room Air Oxygen Flow Rate (L/min) 01/17/25 10:15 01/17/25 10:30 01/17/25 10:45 Temperature Temperature Source Pulse Rate 78 75 72 Respiratory Rate 21 H 18 18 Blood Pressure 124/74 H 139/75 H Blood Pressure Mean 88 94 Pulse Ox 91 96 Oxygen Delivery Method Oxygen Flow Rate (L/min) 01/17/25 10:58 01/17/25 11:02 Temperature 97.7 F L Temperature Source Oral Pulse Rate 78 78 Respiratory Rate 19 H 19 H Blood Pressure 109/67 109/67 Blood Pressure Mean 78 81 Pulse Ox 97 97 Oxygen Delivery Method Nasal Cannula Oxygen Flow Rate (L/min) 3 Positive well nourished, well developed and unkempt Constitutional Narrative: BMI is 39.2. General Appearance ED: unkempt, well developed and NAD HEENT Reports dry mucous membranes HEENT Narrative: Patient has alopecia. Ears are normal. Nares are patent. Mucosas slightly dry. Posterior pharynx is normal. Uvula is midline. Mouth ED: Yes dry mucous membranes Mouth: dry mucous membranes Eyes PERRL and EOMs intact bilaterally General Eye ED: Negative for pale conjunctiva or scleral icterus Neck no lymphadenopathy, supple and no JVD Chest Wall inspection of chest normal and palpation of chest normal Resp normal respiratory effort and No clear to auscultation bilaterally Resp Narrative: Bibasilar rales. Patient is not taking a deep breath when asked. Cardio regular rate, regular rhythm, S1 normal heart sound, S2 normal heart sound and no murmurs GI normal to inspection, nondistended, normoactive bowel sounds, non-tender, non-distended and no masses; Negative for hepatosplenomegaly GI Narrative: Colostomy noted on the left. There is brown soft stool noted in the bag. Narrative: Indwelling Benson Extremity Negative for normal to inspection Neuro No oriented x3, CN's II-XII intact bilaterally and No no sensory deficits noted Sensorium / Orientation: Negative for alert Motor Exam: Negative for strength 5/5 throughout Psych Appearance: unkempt Mood & Affect: depressed Skin Skin Narrative: Patient appears slightly pale. Sepsis Attestation Sepsis Attestation: Agree w/Sepsis Date exam was performed: 01/17/25 Time exam was performed: 11:58 Possible Source of Sepsis: Genitourinary Sepsis Organ Dysfunction Criteria Present: Lactic Acid > 2 mmol/L and New/Unexplained change in mental status Fluid Resuscitation Fluid resuscitation indicated?: Yes Fluid Resuscitation ordered: 30 ml/kg fluid bolus ordered Amount of fluid ordered: 3,300 MDM MDM MDM Narrative Medical decision making narrative: Patient has encephalopathy/acute delirium. Since he has had levels where he hasbeen alert and oriented he has the Librium by definition. In light of his urinesuspect this is the source. Based on past sensitivities he was tried on Rocephin. Sepsis workup was initiated. Lab Data Attestation: I reviewed the patient's lab results. Lab results narrative: White count, differential and H&H are unremarkable. Urine is consistent with infection. Urine is obtained from a U catheter Labs: Laboratory Results - last 24 hr 01/17/25 01/17/25 10:35 10:51 WBC 8.1 RBC 4.67 Hgb 13.0 Hct 41.0 MCV 87.8 MCH 27.8 MCHC 31.7 L RDW Std Deviation 54.6 H RDW Coeff of Josue 17.2 H Plt Count 378 MPV 9.8 Immature Gran % (Auto) 1.000 H Neut % (Auto) 63.4 Lymph % (Auto) 21.3 [place] % (Auto) 9.5 Eos % (Auto) 4.1 Baso % (Auto) 0.7 Absolute Neuts (auto) 5.1 Absolute Lymphs (auto) 1.72 Nucleated RBC % 0 Lactic Acid 2.1 H* Urine Color Yellow Urine Clarity Cloudy Urine pH 6.0 Ur Specific [place] 1.020 Urine Protein 30 H Urine Glucose (UA) Normal Urine Ketones Negative Urine Occult Blood 25 H Urine Nitrite Positive H Urine Bilirubin Negative Urine Urobilinogen Normal Ur Leukocyte Esterase 500 H Urine RBC 0 SEEN Urine WBC 10-25 SEEN Ur Squamous Epith Cells 0 SEEN Urine Bacteria 2+ Urine Mucus 0 SEEN Radiography Chest X-Ray - ED: Read by ED Physician (Patient has blunting of the costophrenicangles bilaterally. Film is suboptimal. Inspiratory volume is poor. In my opinion findings are consistent due to poor inspiration and atelectasis. There is no obvious infiltrate.) Diagnostic Testing: Clinical Impression(s) from Imaging Studies Chest X-Ray 01/17/25 10:15 IMPRESSION: Blunting of both costophrenic angles with the increased markings at the lung bases suggestive of bibasilar atelectasis. Reading Location: [place] [address] EKG Initial EKG: Attestation: I personally reviewed and interpreted this EKG as follows: Interpretation: Sinus Rhythm (Rate is 70. Patient has low voltage. PA interval is 170 ms. QS duration 82 ms. QT duration 348 ms. Kerman is normal.) Management Discussion w/another healthcare provider: Hospitalist (Spoke with Dr. Basilio Hernandez. Admit PCU since his blood pressure and heart rate are acceptable.) Treatment and Re-Evaluation :: Patient is had approximately 20 mm drop in blood pressure. With change in mental status lactate up he received a fluid bolus. Sepsis portion of the chartwas completed Critical Care Time Critical Care Time: Yes Critical care time (excluding procedures): 30-74 minutes (32), Including time spent: (History, physical, documentation, interpretation laboratory results, initiation of treatment for delirium due to urinary tract infection, fluid bolus,), Discussing w/Patient &/or Family/Lead Developer, Discussing w/Consultants and Arranging Admission or Transfer Discharge Plan Dx/Rx/DC Orders Clinical Impression: Complicated urinary tract infection, Acute delirium, Acidosis, lactic, Sepsis, Scoliosis, Bedridden Disposition Disposition: Acute Care Hospital [facility] What to do if you have Problems For any increased pain, shortness of breath, bleeding, nausea or vomiting, chestpain, or any unexpected problems, contact your Primary Care Provider. Call [facility] ([phone]) or report to the closest Emergency Room. Call 911 if necessary. 01/17/25 1204 <Electronically signed by Hebert Saavedra MD> Cosigner Signature (if applicable): CC: Dr. Brian Cardona MD ~ Signed [facility] Work Phone: Discharge summary Author Basilio Dill [facility] Note Date/Time January 20, 2025 2 :50pm [facility] Medical Records Department [address] [place] [address] Discharge Summary 01/20/25 1117 MR#: [id number] Acct: [id number] Name: JORGE COVINGTON Rep #:[id number] : 1955 69 From: Basilio Dill DO PCP: Dr. Brian Cardona MD Status:AD M IN Location: [place] [id number]- Providers Date of Admission: 01/17/25 Primary Care Physician: Dr. Brian Cardona MD Consultations 01/17/25 13:02 Consult: Onc/Wound/shrimp picker Routine Comment: 01/18/25 15:32 Consult: Inpatient Palliative Care Routine Consulting Provider: Susan Melton Reason for Consult: COPD,paraplegic spinal paralysis,W/C dependent,3rd hospitalization in 6 mo EMERGENT Consult: No MD Notified: Yes Date Notified: 01/18/25 Time Notified: 15:32 Method of Notification: Text 01/19/25 09:34 Consult: Hospice / Outpatient Palliative Care Routine Consulting Provider: Other Group- Specify Below Reason for Consult: COPD, paraplegic spinal paralysis EMERGENT Consult: No MD Notified: Yes Date Notified: 01/19/25 Time Notified: 09:34 Method of Notification: Text Comments:: Palliative referral Reason For Visit: UTI Diagnosis Discharge Diagnosis (1) Sepsis: Status: Acute Code(s): A41.9 - Sepsis, unspecified organism Plan: Present on admission. qSOFA of 2 with encephalopathy and a respiratory rate of 22 Likely secondary to UTI. Cultures showing citrobacter freundii, providencia. DC with levofloxacin (2) Urinary tract infection: Status: Inactive Code(s): N39.0 - Urinary tract infection, site not specified Plan: Catheter associated Cultures showing citrobacter freundii, providencia. DC with levofloxacin (3) Metabolic encephalopathy: Status: Acute Code(s): G93.41 - Metabolic encephalopathy Plan: Resolved Secondary to sepsis and UTI Hold potentiating medications including baclofen Plan Debility: Patient is bedbound at baseline. PT OT Hypothyroidism: Continue levothyroxine VTE prophylaxis with enoxaparin DC home with [facility] Medications at Discharge Home Medications levothyroxine 125 mcg tablet 125 mcg PO DAILY THYROID 12/17/17 tamsulosin 0.4 mg capsule 0.4 mg PO BID PROSTATE 12/17/17 icosapent ethyl 1 gram capsule (Vascepa) 2 g PO BIDCM cholesterol 02/08/22 omeprazole 40 mg capsule,delayed release 40 mg PO DAILY reflux 08/02/24 baclofen 20 mg tablet 20 mg PO BID PRN pain 08/07/24 meclizine 25 mg tablet 25 mg PO TID PRN dizziness #20 tabs 08/07/24 nitrofurantoin macrocrystal 50 mg capsule 50 mg PO QHS prevent infection 08/29/24 Held on 01/20/25. Instructions: Resume on 01/24/25. mecobalamin (vitamin B12) 500 mcg chewable tablet mcg PO DAILY supplement 01/17/25 acetaminophen 325 mg tablet 1,300 mg (4 x 325 mg) PO Q8H PRN PRN Pain 1-10 Or Fever>100.7 #0 tabs 01/20/25 levofloxacin 500 mg tablet 500 mg PO DAILY #3 tabs 01/20/25 Hospital Course Operations None Procedures None Summary of Care Provided Hospital Course: Greater than 30-minute spent on discharge patient presents with confusion from home. Patient was found to have a urinary tract infection with a sent to the emergency room. Patient was also clinically septic upon arrival. Patient overall proved, his mental status improved. Patient started ceftriaxone for the urinary tract infection. He also had metabolic encephalopathy but that did improve while he was here. Patient overall has done well since he has been here in the hospital. His urine culturegrew out Citrobacter as well as Providencia. Both sensitive to levofloxacin which he will complete for 3 more doses completed 7-day course of antibiotics. Patient is bed ridden at bedside. Patient's takes care of him at home and has a Billy lift. Patient will be discharged home to continue with his home care. Weight / BMI Weight Weight: 104.8 kg Body Mass Index (BMI) 37.3 ABG / Lab / Microbiology Data 01/19/25 05:06 01/19/25 05:06 Microbiology: Microbiology 01/17/25 10:51 Urine Catheter - Catheter Urine Culture - Final Citrobacter freundii Providencia alcalifaciens 01/17/25 10:35 Blood Culture (Wb) - Right Hand Blood Culture - Preliminary No growth in 48 hours. 01/17/25 10:35 Blood Culture (Wb) - Left Hand Blood Culture - Preliminary No growth in 48 hours. D/C Instructions DC O2, CPAP, BIPAP Needs Home O2 Discharge instructions: No Meaningful Use Info Meaningful Use Meaningful Use Diagnoses (Choose all that apply): None applicable Discharge Plan Admission Admit Date/Time: 01/17/25 12:26 Primary Reason for Your Visit: Urinary tract infection Attending Provider: Basilio Dill Primary Care Provider: Brian Cardona Consulting Providers: Susan Melton Discharge Orders/Prescriptions Prescriptions: New acetaminophen 325 mg Tablet 1,300 mg PO Q8H PRN PRN (Reason: Pain 1-10 Or Fever>100.7) Qty: 0 0RF levofloxacin 500 mg tablet 500 mg PO DAILY Qty: 3 0RF Continued tamsulosin 0.4 MG capsule 0.4 mg PO BID levothyroxine 125 MCG tablet 125 mcg PO DAILY Patient Comments: 1 extra pill on Sundays icosapent ethyl [Vascepa] 1 gram Capsule 2 g PO BIDCM baclofen 20 mg tablet 20 mg PO BID PRN meclizine 25 mg tablet 25 mg PO TID PRN (Reason: dizziness) Qty: 20 0RF omeprazole 40 mg capsule,delayed release(DR/EC) 40 mg PO DAILY mecobalamin (vitamin B12) 500 mcg tablet,chewable PO DAILY Held nitrofurantoin macrocrystal 50 mg capsule 50 mg PO QHS Hold Instructions: Resume on 01/24/25. Referrals / Follow Up: Brian Cardona MD [Primary Care Provider, Medical] - Within 2 Weeks Hyperbaric Medicine,[place] [facility] and [Non-Staff, Wound Care] - 02/06/25 3:15 pm Disposition Disposition (needs filled in before D/C Order can be placed): Home Health Service Charges/Coding Visit Charges Inpatient E&M: 46197 Disch Hosp >30min 01/20/25 1133 <Electronically signed by Basilio Dill DO> Cosigner Signature (if applicable): CC: Dr. Basilio Dill DO; Dr. Brian Cardona MD~ Signed ADDENDUM by Dr. Basilio Dill DO on 01/20/25 at 1350 Addendum Oxygen testing reviewed and patient is ambulatory in home and in the community and requires home oxygen with portability. Patient requires 2 L nasal cannula continuously. 01/20/25 1350<Electronically signed by Basilio Dill DO> Cosigner Signature (if applicable): cc: Dr. Basilio Dill DO; Dr. Brian Cardona MD ~* Signed [facility] Work Phone: Evaluation noteNo assessment information available [facility] Work Phone: Evaluation note* Diagnosis Onset Date Resolution Status Stage II pressure ulcer of sacral region acute [facility] Work Phone: Evaluation note* Diagnosis Onset Date Resolution Status Osteomyelitis of right side of pelvis acute Bedridden chronic Right ischial pressure sore, stage 4 chronic Smoker chronic Osteomyelitis of right side of pelvis acute Spinal cord injury acute Tobacco abuse acute Bedridden chronic Right ischial pressure sore, stage 4 chronic Smoker chronic [facility] Work Phone: Evaluation note* Diagnosis Onset [...] Right ischial pressure sore, stage 4 chronic [facility] Work Phone: Evaluation note* Diagnosis Onset [...] pressure sore, stage 4 chronic Smoker chronic [facility] Work Phone: Evaluation note* Diagnosis Onset [...] pressure sore, stage 4 chronic Smoker chronic [facility] Work Phone: Evaluation note* Diagnosis Onset [...] pressure sore, stage 4 chronic Smoker chronic [facility] Work Phone: Evaluation note* Diagnosis Onset [...] pressure sore, stage 4 chronic Smoker chronic [facility] Work Phone: evaluation note* Diagnosis Onset [...] pressure sore, stage 4 chronic Smoker chronic [facility] Work Phone: Evaluation note* Diagnosis Onset [...] fat layer exposed acute S/P colostomy acute [facility] Work Phone: Evaluation note* Diagnosis Onset [...] 4 chronic Smoker chronic S/P colostomy acute [facility] Work Phone: Evaluation note* Diagnosis Onset [...] pressure sore, stage 4 chronic Smoker chronic [facility] Work Phone: Evaluation note* Diagnosis Onset [...] pressure sore, stage 4 chronic Smoker chronic [facility] Work Phone: Evaluation note* Diagnosis Onset [...] pressure sore, stage 4 chronic Smoker chronic [facility] Work Phone: Evaluation note* Diagnosis Onset [...] pressure sore, stage 4 chronic Smoker chronic [facility] Work Phone: Evaluation note* Diagnosis Onset [...] pressure sore, stage 4 chronic Smoker chronic [facility] Work Phone: Evaluation note* Diagnosis Urinary retention- Primary Unspecified retention of [facility] Urinary retention- Primary Unspecified retention of urine [facility] Diagnosis Urinary retention- Primary Unspecified retention of urine Suprapubic catheter (CMS/HCC) (HCC) Other cystostomy status [facility] Author Juliana Shaw [facility] Note Date/Time June 09, 2024 12: 16pm [facility] Medical Records Department [address] [place] [address] H&P Exam - Hospitalist 06/09/24 1206 MR#: [id number] Acct: [id number] Name: JORGE COVINGTON Rep #:[id number] : 1955 68 From: Juliana Shaw MD PCP: Dr. Brian Cardona MD Status:RE G ER Location: ED HPI - General General Date of Admission: 06/09/24 Date of Service: 06/09/24 Chief Complaint: Fever HPI Narrative JORGE COVINGTON, is a 68 M with history of paraplegia, COPD, hypothyroidism, chronic indwelling Benson who presented [facility] ED 06/09/2024 with 1 day of [...] some diarrhea but otherwise grider negative ROS. [facility] Medical History Other acute postprocedural [...] 85.9 H, Lymph % (Auto) 5.6 L, [place] % (Auto) 6.9, Eos % (Auto) 0.4, [...] Clarity Cloudy, Urine pH 7.0, Ur Specific [place] 1.010, Urine Protein 30 H, Urine Glucose [...] of scarring. Right apical scarring. Reading Location: [id number] Assessment & Plan Assessment/Plan (1) Complicated urinary [...] 57 Minutes Charges/Coding Visit Charges Inpatient E&M: 21181 Init Hosp L2 06/09/24 1216 <Electronically signed by Juliana Shaw MD> Cosigner Signature (if applicable): CC: Dr. Juliana Shaw MD; Dr. Brian Cardona MD~ Signed [facility] Work Phone: History and physical note [facility] Medical Records Department [address] [place] [address] H&P Exam - Hospitalist 01/17/25 1239 MR#: [id number] Acct: [id number] Name: JORGE COVINGTON Rep #[id number] : 1955 69 From: Basilio Dill DO PCP: Dr. Brian Cardona MD Status:AD M IN Location: [place] [id number] HPI - General General Date of Admission: 01/17/25 Date of Service: 01/17/25 Chief Complaint: confusion. HPI Narrative JORGE COVINGTON, is a 69 M who presents with change in mental status. This is [id number] male with history of chronic Benson and diverting colostomy presents with confusion at home. Visiting nurse saw him and sent him to the emergency room. In emergency room, patient had a lactic acid of 2.1, he was ordered IV fluids as well as antibiotics given concern for urinary tract infection with ceftriaxone. Patient is a poor historian. [ ] [facility] Medical History (Updated 01/17/25 @ 12:[address] Basilio Dill DO) Urinary tract infection Scoliosis Fusion of spine, cervical region Thoracic myelopathy [...] BIDCM cholestero l 02/08/22 08/02/24 History (Vascepa) omeprazole 40 mg capsule,delayed 40 mg PO DAILY reflux 08/02/24 08/02/24 History release baclofen 20 mg tablet 20 mg PO TID PRN pain Unknown History meclizine 25 mg tablet 25 mg PO TID PRN dizziness # 20 tabs 08/07/24 Unknown Rx nitrofurantoin macrocrystal 50 mg 50 mg PO QHS prevent infection 08/29/24 Unknown History capsule Allergy/AdvReac Type Severity Reaction Status Date / Time Environmental Allergies: Allergy NEEDS Verified 01/17/25 10:03 Uncoded (dust) FOLLOW-UP house dust Allergy Other Verified 01/17/25 10:03 pollen extracts Allergy NEEDS Verified 01/17/25 10:03 FOLLOW-UP Family History Mother CVA (cerebral vascular accident) Hypertension Father Hypertension Prostate CA Surgical History Chronic suprapubic catheter S/P colostomy History of back surgery Hx of neck surgery Hx of spinal surgery Social History household members: spouse Smoking Status: Former smoker alcohol intake: never substance use type: does not use ROS ROS Narrative All review of systems were negative except as mentioned above in the history of present illness andthe other review of systems. Vital Signs Vital Signs Vital Signs: 01/17/25 09:58 01/17/25 10:02 01/17/25 10:13 Temperature 36.4 C L 36.4 C L Temperature Source Oral Oral Pulse Rate 79 80 79 Respiratory Rate 22 H 21 H 19 H Blood Pressure 130/77 H 130/77 H Blood Pressure Mean 94 94 Pulse Ox 90 91 92 Oxygen Delivery Method Room Air Room Air Oxygen Flow Rate (L/min) 01/17/25 10:15 01/17/25 10:30 01/17/25 10:45 Temperature Temperature Source Pulse Rate 78 75 72 Respiratory Rate 21 H 18 18 Blood Pressure 124/74 H 139/75 H Blood Pressure Mean 88 94 Pulse Ox 91 96 Oxygen Delivery Method Oxygen Flow Rate (L/min) 01/17/25 10:58 01/17/25 11:02 01/17/25 12:00 Temperature 36.5 C L 36.4 C L Temperature Source Oral Oral Pulse Rate 78 78 76 Respiratory Rate 19 H 19 H 16 Blood Pressure 109/67 109/67 111/98 H Blood Pressure Mean 78 81 102 Pulse Ox 97 97 97 Oxygen Delivery Method Nasal Cannula Nasal Cannula Oxygen Flow Rate (L/min) 3 3 Weight Weight: 110.2 kg Body Mass Index (BMI) 39.2 Physical Exam Const Constitutional Narrative: Alert to place and self. General Appearance: cooperative Orientation / Consciousness: disoriented HEENT normocephalic, head/scalp atraumatic and moist oral mucous membranes HEENT Narrative: Edentulous Resp normal respiratory effort, no retractions, no use of accessory muscles and clearto auscultation bilaterally Cardio regular rate, regular rhythm, S1 normal heart sound and S2 normal heart sound GI normal to inspection, nondistended, normoactive bowel sounds, soft to palpation,non-tender and non-distended Neuro Sensorium / Orientation: awake Results Lab / Micro Data Attestation: I reviewed the patient's lab results. 01/17/25 10:35 01/17/25 10:35 Labs: Laboratory Results - last 24 hr 01/17/25 10:35: WBC 8.1, RBC 4.67, Hgb 13.0, Hct 41.0, MCV 87.8, MCH 27.8, MCHC 31.7 L, RDW Std Deviation 54.6 H, RDW Coeff of Josue 17.2 H, Plt Count 378, MPV 9.8, Immature Gran % (Auto) 1.000 H, Neut% (Auto) 63.4, Lymph % (Auto) 21.3, [place] % (Auto) 9.5, Eos % (Auto) 4.1, Baso % (Auto) 0.7, Absolute Neuts (auto) 5.1, Absolute Lymphs (auto) 1.72, Nucleated RBC % 0, Sodium 136, Potassium 4.6, Chloride 101, Carbon Dioxide 23.7, Anion Gap 11, BUN 11, Creatinine 0.59 L, Estim Creat Clear Calc 102.95, Est GFR (MDRD) Non-Af 106, BUN/Creatinine Ratio 18.9, Glucose 258 H, Lactic Acid 2.1 H*, Calcium 9.2, Total Bilirubin < 0.15, AST 18, ALT 21, Alkaline Phosphatase 121, Total Protein 7.2, Albumin 3.5, Globulin 3.8, Albumin/Globulin Ratio 0.9 01/17/25 10:51: Urine Color Yellow, Urine Clarity Cloudy, Urine pH 6.0, Ur Specific [place] 1.020, Urine Protein 30 H, Urine Glucose (UA) Normal, Urine Ketones Negative, Urine Occult Blood 25 H, Urine Nitrite Positive H, Urine Bilirubin Negative, Urine Urobilinogen Normal, Ur Leukocyte Esterase 500H, Urine RBC 0 SEEN, Urine WBC 10-25 SEEN, Ur Squamous Epith Cells 0 SEEN, Urine Bacteria 2+, UrineMucus 0 SEEN EKG Initial EKG: Attestation: I personally reviewed and interpreted this EKG as follows: Prior EKG tracings: available for review EKG Rhythm Intrepretation: Sinus Rhythm Imaging Radiology Impression Chest X-Ray 01/17/25 10:15 IMPRESSION: Blunting of both costophrenic angles with the increased markings at the lung bases suggestive of bibasilar atelectasis. Reading Location: [facility] Assessment & Plan Assessment/Plan (1) Sepsis: PLAN: Present on admission. qSOFA of 2 with encephalopathy and a respiratory rate of 22 Likely secondary to UTI. Follow-up cultures Continue with IV fluids (2) Urinary tract infection: PLAN: Catheter associated Received ceftriaxone given prior history of Klebsiella Continue ceftriaxone (3) Metabolic encephalopathy: PLAN: Secondary to sepsis and UTI Hold potentiating medications including baclofen PLAN: Plan Debility: Patient is bedbound at baseline. PT OT Hypothyroidism: Continue levothyroxine VTE prophylaxis with Charges/Coding Visit Charges Inpatient E&M: 76896 Init Hosp L2 01/17/25 1251 Cosigner Signature (if applicable): CC: Dr. Basilio Dill DO; Dr. Brian Cardona MD~ [facility]igned [facility] Author Basilio Dill [facility] Note Date/Time January 17, 2025 1 :51pm [facility] Medical Records Department [address] [place] [address] H&P Exam - Hospitalist 01/17/25 1239 MR#: [id number] Acct: [id number] Name: JORGE COVINGTON Rep #:[id number] 1 : 1955 69 From: Basilio Dill DO PCP: Dr. Brian Cardona MD Status:AD M IN Location: [place] [id number]- [id number] HPI - General General Date of Admission: 01/17/25 Date of Service: 01/17/25 Chief Complaint: confusion. HPI Narrative JORGE COVINGTON, is a 69 M who presents with change in mental status. This is [id number] male with history of chronic Benson and diverting colostomy presents with confusion at home. Visiting nurse saw him and sent him to the emergency room. In emergency room, patient had a lactic acid of 2.1, he was ordered IV fluids as well as antibiotics given concern for urinary tract infection with ceftriaxone. Patient is a poor historian. [ ] [facility] Medical History (Updated 01/17/25 @ 12:[address] Basilio Dill DO) Urinary tract infection Scoliosis Fusion of spine, cervical region Thoracic myelopathy [...] BIDCM cholestero l 02/08/22 08/02/24 History (Vascepa) omeprazole 40 mg capsule,delayed 40 mg PO DAILY reflux 08/02/24 08/02/24 History release baclofen 20 mg tablet 20 mg PO TID PRN pain Unknown History meclizine 25 mg tablet 25 mg PO TID PRN dizziness # 20 tabs 08/07/24 Unknown Rx nitrofurantoin macrocrystal 50 mg 50 mg PO QHS prevent infection 08/29/24 Unknown History capsule Allergy/AdvReac Type Severity Reaction Status Date / Time Environmental Allergies: Allergy NEEDS Verified 01/17/25 10:03 Uncoded (dust) FOLLOW-UP house dust Allergy Other Verified 01/17/25 10:03 pollen extracts Allergy NEEDS Verified 01/17/25 10:03 FOLLOW-UP Family History Mother CVA (cerebral vascular accident) Hypertension Father Hypertension Prostate CA Surgical History Chronic suprapubic catheter S/P colostomy History of back surgery Hx of neck surgery Hx of spinal surgery Social History household members: spouse Smoking Status: Former smoker alcohol intake: never substance use type: does not use ROS ROS Narrative All review of systems were negative except as mentioned above in the history of present illness and the other review of systems. Vital Signs Vital Signs Vital Signs: 01/17/25 09:58 01/17/25 10:02 01/17/25 10:13 Temperature 36.4 C L 36.4 C L Temperature Source Oral Oral Pulse Rate 79 80 79 Respiratory Rate 22 H 21 H 19 H Blood Pressure 130/77 H 130/77 H Blood Pressure Mean 94 94 Pulse Ox 90 91 92 Oxygen Delivery Method Room Air Room Air Oxygen Flow Rate (L/min) 01/17/25 10:15 01/17/25 10:30 01/17/25 10:45 Temperature Temperature Source Pulse Rate 78 75 72 Respiratory Rate 21 H 18 18 Blood Pressure 124/74 H 139/75 H Blood Pressure Mean 88 94 Pulse Ox 91 96 Oxygen Delivery Method Oxygen Flow Rate (L/min) 01/17/25 10:58 01/17/25 11:02 01/17/25 12:00 Temperature 36.5 C L 36.4 C L Temperature Source Oral Oral Pulse Rate 78 78 76 Respiratory Rate 19 H 19 H 16 Blood Pressure 109/67 109/67 111/98 H Blood Pressure Mean 78 81 102 Pulse Ox 97 97 97 Oxygen Delivery Method Nasal Cannula Nasal Cannula Oxygen Flow Rate (L/min) 3 3 Weight Weight: 110.2 kg Body Mass Index (BMI) 39.2 Physical Exam Const Constitutional Narrative: Alert to place and self. General Appearance: cooperative Orientation / Consciousness: disoriented HEENT normocephalic, head/scalp atraumatic and moist oral mucous membranes HEENT Narrative: Edentulous Resp normal respiratory effort, no retractions, no use of accessory muscles and clearto auscultation bilaterally Cardio regular rate, regular rhythm, S1 normal heart sound and S2 normal heart sound GI normal to inspection, nondistended, normoactive bowel sounds, soft to palpation,non-tender and non-distended Neuro Sensorium / Orientation: awake Results Lab / Micro Data Attestation: I reviewed the patient's lab results. 01/17/25 10:35 01/17/25 10:35 Labs: Laboratory Results - last 24 hr 01/17/25 10:35: WBC 8.1, RBC 4.67, Hgb 13.0, Hct 41.0, MCV 87.8, MCH 27.8, MCHC 31.7 L, RDW Std Deviation 54.6 H, RDW Coeff of Josue 17.2 H, Plt Count 378, MPV 9.8, Immature Gran % (Auto) 1.000 H, Neut % (Auto) 63.4, Lymph % (Auto) 21.3, [place] % (Auto) 9.5, Eos % (Auto) 4.1, Baso % (Auto) 0.7, Absolute Neuts (auto) 5.1, Absolute Lymphs (auto) 1.72, Nucleated RBC % 0, Sodium 136, Potassium 4.6, Chloride 101, Carbon Dioxide 23.7, Anion Gap 11, BUN 11, Creatinine 0.59 L, Estim Creat Clear Calc 102.95, Est GFR (MDRD) Non-Af 106, BUN/Creatinine Ratio 18.9, Glucose 258 H, Lactic Acid 2.1 H*, Calcium 9.2, Total Bilirubin < 0.15, AST 18, ALT 21, Alkaline Phosphatase 121, Total Protein 7.2, Albumin 3.5, Globulin 3.8, Albumin/Globulin Ratio 0.9 01/17/25 10:51: Urine Color Yellow, Urine Clarity Cloudy, Urine pH 6.0, Ur Specific [place] 1.020, Urine Protein 30 H, Urine Glucose (UA) Normal, Urine Ketones Negative, Urine Occult Blood 25 H, Urine Nitrite Positive H, Urine Bilirubin Negative, Urine Urobilinogen Normal, Ur Leukocyte Esterase 500 H, Urine RBC 0 SEEN, Urine WBC 10-25 SEEN, Ur Squamous Epith Cells 0 SEEN, Urine Bacteria 2+, Urine Mucus 0 SEEN EKG Initial EKG: Attestation: I personally reviewed and interpreted this EKG as follows: Prior EKG tracings: available for review EKG Rhythm Intrepretation: Sinus Rhythm Imaging Radiology Impression Chest X-Ray 01/17/25 10:15 IMPRESSION: Blunting of both costophrenic angles with the increased markings at the lung bases suggestive of bibasilar atelectasis. Reading Location: [facility]- Assessment & Plan Assessment/Plan (1) Sepsis: PLAN: Present on admission. qSOFA of 2 with encephalopathy and a respiratory rate of 22 Likely secondary to UTI. Follow-up cultures Continue with IV fluids (2) Urinary tract infection: PLAN: Catheter associated Received ceftriaxone given prior history of Klebsiella Continue ceftriaxone (3) Metabolic encephalopathy: PLAN: Secondary to sepsis and UTI Hold potentiating medications including baclofen PLAN: Plan Debility: Patient is bedbound at baseline. PT OT Hypothyroidism: Continue levothyroxine VTE prophylaxis with Charges/Coding Visit Charges Inpatient E&M: 33808 Init Hosp L2 01/17/25 1251 <Electronically signed by Basilio Jopperi DO> Cosigner Signature (if applicable): CC: Dr. Basilio Dill DO; Dr. Brian Cardona MD~ Signed [facility] Work Phone: Hospital Discharge instructions Additional [...] worsening symptoms. Continue oxycodone as needed for pain.[facility] Work Phone: Progress note [facility] [address] [place] [address] Progress Note - Wound Care 12/28/24 0828 MR#: [id number] Acct: [id number] Name: JORGE COVINGTON Rep #:[id number] : 1955 69 From: Luca Nayak MD PCP: Dr. Brian Cardona MD Status:DI S RCR Location: History of Present Illness Date of Service: 12/26/24 Chief Complaint: Right ischial pressure sore, Stage [...] seen by ID on 11/04/23. Subjective Subjective 03 October 2024: The patient is a 69-year-old male presenting with wound healing issues. The wound has been problematic, with the patient experiencing pain and difficulty with previous wound vac therapy due to its tendency to dislodge. Currently, the wound is being managed with saline dressings, which appear to be promoting healing as granulation tissue is present. The patient also reports experiencing hallucinations, such as seeing animals that are not present. These hallucinations may be related to the antibiotics being taken for infection control. Attestation: Documentation on this patient encounter was supported using ambient scribe technology/ voice AI technology. The patient consented to recording for the purpose of documenting the encounter. Provider reviewed content of the generatednote prior to signature. 14 November 2024: is having trouble at home with the patient as he is having intermittent delirium at night. He has had several UTIs and has been in the hospital over the past year. She has been doing excellent wound care to the ischial wound. Concerns for infection at. Current encounter, 26 Dec 2024: Patient here today for wound check. He is very conversant today and appears to be doing rather well. He seems to have more energy and is more conversant. He endorses excellent care from his who was present at the visit today. Objective Data Objective Data Vital Signs: Vital Signs Temp Pulse Resp BP 97.8 F 100 16 159/89 H 12/26/24 15:13 12/26/24 15:13 12/26/24 15:13 12/26/24 15:13 Charges/Coding Visit Charges Office Visits / Consults: 42516 OV L2 Est 10min Physical Exam Narrative Persistent right ischial wound Wound examination reveals no fluid collections and presence of granulation tissue. No drainage. Surrounding skin appears healthy Measured 3 x 4 cm today and 3 cm deep, with firmness at the base of the wound that has granulation tissue present Const alert and oriented x3 General Appearance: cooperative Resp normal respiratory effort GI GI Narrative: Diverting ostomy is present and is productive Debridement Note Debridement Note No debridement was completed: No debridement was completed today Assessment/Plan Assessment/Plan (1) Decubitus ulcer of right buttock, stage 3: CODE(S): L89.313 - Pressure ulcer of right buttock, stage 3 PLAN: Continue supportive care for the wound as the patient is not a flap candidate per discussion with the family and the patient (cannot follow positioning restrictions and is not interested in large surgery). Continue pressure offloading with the offloading bed and nutrition support (high-protein diet and continue to follow-up with our nutrition team) PLAN: Plan - Continue saline dressings twice daily to temporize wound - Attend the follow-up wound check in six weeks. 12/28/24830 Cosigner Signature (if applicable): CC: ~ Signed [facility] Luca Nayak [facility] Note Date/Time December 28, 2024 8: 31am [facility] [address] [place] [address] Progress Note - Wound Care 12/28/24827 MR#: [id number] Acct: [id number] Name: JORGE COVINGTON Rep #:[id number] : 1955 69 From: Luca Nayak MD PCP: Dr. Brian Cardona MD Status:TERESITA Huffman RCR Location: History of Present Illness Date of Service: 12/26/24 Chief Complaint: Right ischial pressure sore, Stage [...] seen by ID on 11/04/23. Subjective Subjective 03 October 2024: The patient is a 69-year-old male presenting with wound healing issues. The wound has been problematic, with the patient experiencing pain and difficulty with previous wound vac therapy due to its tendency to dislodge. Currently, the wound is being managed with saline dressings, which appear to be promoting healing as granulation tissue is present. The patient also reports experiencing hallucinations, such as seeing animals that are not present. These hallucinations may be related to the antibiotics being taken for infection control. Attestation: Documentation on this patient encounter was supported using ambient scribe technology/ voice AI technology. The patient consented to recording for the purpose of documenting the encounter. Provider reviewed content of the generatednote prior to signature. 14 November 2024: is having trouble at home with the patient as he is having intermittent delirium at night. He has had several UTIs and has been in the hospital over the past year. She has been doing excellent wound care to the ischial wound. Concerns for infection at. Current encounter, 26 Dec 2024: Patient here today for wound check. He is very conversant today and appears to be doing rather well. He seems to have more energy and is more conversant. He endorses excellent care from his who was present at the visit today. Objective Data Objective Data Vital Signs: Vital Signs Temp Pulse Resp BP 97.8 F 100 16 159/89 H 12/26/24 15:13 12/26/24 15:13 12/26/24 15:13 12/26/24 15:13 Charges/Coding Visit Charges Office Visits / Consults: 36736 OV L2 Est 10min Physical Exam Narrative Persistent right ischial wound Wound examination reveals no fluid collections and presence of granulation tissue. No drainage. Surrounding skin appears healthy Measured 3 x 4 cm today and 3 cm deep, with firmness at the base of the wound that has granulation tissue present Const alert and oriented x3 General Appearance: cooperative Resp normal respiratory effort GI GI Narrative: Diverting ostomy is present and is productive Debridement Note Debridement Note No debridement was completed: No debridement was completed today Assessment/Plan Assessment/Plan (1) Decubitus ulcer of right buttock, stage 3: CODE(S): L89.313 - Pressure ulcer of right buttock, stage 3 PLAN: Continue supportive care for the wound as the patient is not a flap candidate per discussion with the family and the patient (cannot follow positioning restrictions and is not interested in large surgery). Continue pressure offloading with the offloading bed and nutrition support (high-protein diet and continue to follow-up with our nutrition team) PLAN: Plan - Continue saline dressings twice daily to temporize wound - Attend the follow-up wound check in six weeks. 12/28/24830 <Electronically signed by Luca Nayak MD> Cosigner Signature (if applicable): CC: ~ Signed [facility] Work Phone: Progress note [facility] Medical Records Department [address] [place] [address] Progress Note - Hospitalist 01/18/25808 MR#: [id number] Acct: [id number] Name: JORGE COVINGTON Rep #:[id number] : 1955 69 From: Basilio Dill DO PCP: Dr. Brian Cardona MD Status:AD IN Location: [place] [address] Reason for Visit Chief Complaint: confusion. Subjective Subjective Feeling better. Objective Data Objective Data Vital Signs: Vital Signs Temp Pulse Resp BP Pulse Ox O2 Del Method O2 Flow Rate 37.1 C 80 18 113/58 L 92 Nasal Cannula 2 01/18/25 03:30 01/18/25 03:30 01/18/25 03:30 01/18/25 03:30 01/18/25 03:30 01/18/25 03:30 01/18/25 03:30 Oxygen Flow Rate (L/min) 2 Oxygen Delivery Method Nasal Cannula Weight: 104.8 kg Body Mass Index (BMI) 37.3 Intake & Output: Intake and Output for Last 24 Hours 01/16/25 01/17/25 01/18/25 23:59 23:59 23:59 Intake Total 3450.0 / 3450.0 Output Total 700 / 1300 1600 / 1600 Balance 2750.0 / 2150.0 -1600 / -1600 Lab / Micro Data 01/18/25 05:23 01/18/25 05:23 Labs: Laboratory Results - last 24 hr 01/17/25 10:35: WBC 8.1, RBC 4.67, Hgb 13.0, Hct 41.0, MCV 87.8, MCH 27.8, MCHC 31.7 L, RDW Std Deviation 54.6 H, RDW Coeff of Josue 17.2 H, Plt Count 378, MPV 9.8, Immature Gran % (Auto) 1.000 H, Neut% (Auto) 63.4, Lymph % (Auto) 21.3, [place] % (Auto) 9.5, Eos % (Auto) 4.1, Baso % (Auto) 0.7, Absolute Neuts (auto) 5.1, Absolute Lymphs (auto) 1.72, Nucleated RBC % 0, Sodium 136, Potassium 4.6, Chloride 101, Carbon Dioxide 23.7, Anion Gap 11, BUN 11, Creatinine 0.59 L, Estim Creat Clear Calc 102.95, Est GFR (MDRD) Non-Af 106, BUN/Creatinine Ratio 18.9, Glucose 258 H, Lactic Acid 2.1 H*, Calcium 9.2, Total Bilirubin < 0.15, AST 18, ALT 21, Alkaline Phosphatase 121, Total Protein 7.2, Albumin 3.5, Globulin 3.8, Albumin/Globulin Ratio 0.9 01/17/25 10:51: Urine Color Yellow, Urine Clarity Cloudy, Urine pH 6.0, Ur Specific [place] 1.020, Urine Protein 30 H, Urine Glucose (UA) Normal, Urine Ketones Negative, Urine Occult Blood 25 H, Urine Nitrite Positive H, Urine Bilirubin Negative, Urine Urobilinogen Normal, Ur Leukocyte Esterase 500H, Urine RBC 0 SEEN, Urine WBC 10-25 SEEN, Ur Squamous Epith Cells 0 SEEN, Urine Bacteria 2+, UrineMucus 0 SEEN 01/17/25 15:11: Lactic Acid 2.3 H* 01/18/25 05:23: WBC 8.6, RBC 4.18 L, Hgb 11.4 L, Hct 36.8 L, MCV 88.0, MCH 27.3,MCHC 31.0 L, RDW Std Deviation 54.1 H, RDW Coeff of Josue 16.8 H, Plt Count 398, MPV 9.7, Immature Gran % (Auto) 0.900, Neut % (Auto) 67.2, Lymph % (Auto) 19.9, [place] % (Auto) 7.8, Eos % (Auto) 3.4, Baso % (Auto) 0.8, Absolute Neuts (auto) 5.8, Absolute Lymphs (auto) 1.71, Nucleated RBC % 0, Sodium 135, Potassium 4.6, Chloride 102, Carbon Dioxide 23.6, Anion Gap 10, BUN 9, Creatinine 0.52 L, EstimCreat Clear Calc 100.25, Est GFR (MDRD) Non-Af 110, BUN/Creatinine Ratio 17.8, Glucose 165 H, Calcium 8.7 Radiography Diagnostic Testing: Radiology Impression Chest X-Ray 01/17/25 10:15 IMPRESSION: Blunting of both costophrenic angles with the increased markings at the lung bases suggestive of bibasilar atelectasis. Reading Location: [place] [address] Physical Exam Const alert and no apparent distress Constitutional Narrative: clean shaven today. Resp normal respiratory effort, no retractions, no use of accessory muscles and clearto auscultation bilaterally Cardio regular rate, regular rhythm, S1 normal heart sound and S2 normal heart sound GI normal to inspection, nondistended, normoactive bowel sounds, soft to palpation,non-tender and non-distended Neuro Sensorium / Orientation: awake and alert Assessment & Plan Assessment/Plan (1) Sepsis: PLAN: Present on admission. qSOFA of 2 with encephalopathy and a respiratory rate of 22 Likely secondary to UTI. Follow-up cultures Continue with IV fluids (2) Urinary tract infection: PLAN: Catheter associated Received ceftriaxone given prior history of Klebsiella Continue ceftriaxone UCx growing out GNR and GNRLF (3) Metabolic encephalopathy: PLAN: Resolved Secondary to sepsis and UTI Hold potentiating medications including baclofen PLAN: Plan Debility: Patient is bedbound at baseline. PT OT Hypothyroidism: Continue levothyroxine VTE prophylaxis with enoxaparin Charges/Coding Visit Charges Inpatient E&M: 60619 Subs Hosp L2 01/18/25 1444 Cosigner Signature (if applicable): CC: ~ [facility]igned [facility] [address] [place] [address] Progress Note - Hospitalist 01/19/25 0835 MR#: [id number] Acct: [id number] Name: JORGE COVINGTON Rep #:[id number] : 1955 69 From: Basilio Dill DO PCP: Dr. Brian Cardona MD Status:AD M IN Location: [address] 1 Reason for Visit Chief Complaint: confusion. Subjective Subjective Feeling well. Objective Data Objective Data Vital Signs: Vital Signs Temp Pulse Resp BP Pulse Ox O2 Del Method O2 Flow Rate 36.3 C L 89 18 134/57 H 94 Nasal Cannula 2 01/19/25 03:26 01/19/25 03:26 01/19/25 03:26 01/19/25 03:26 01/19/25 03:26 01/19/25 03:26 01/19/25 03:26 Oxygen Flow Rate (L/min) 2 Oxygen Delivery Method Nasal Cannula Weight: 104.8 kg Body Mass Index (BMI) 37.3 Intake & Output: Intake and Output for Last 24 Hours 01/17/25 01/18/25 01/19/25 23:59 23:59 23:59 Intake Total 3450.0 / 3450.0 50 / 50 Output Total 700 / 1300 3850 / 3850 400 / 400 Balance 2750.0 / 2150.0 -3800 / -3800 -400 / -400 Lab / Micro Data 01/19/25 05:06 01/19/25 05:06 Labs: Laboratory Results - last 24 hr 01/19/25 05:06: WBC 8.8, RBC 4.65, Hgb 12.5 L, Hct 39.8 L, MCV 85.6, MCH 26.9 L,MCHC 31.4 L, RDW Std Deviation 51.1 H, RDW Coeff of Josue 16.5 H, Plt Count 421, MPV 9.6, Immature Gran % (Auto) 1.000 H,Neut % (Auto) 64.0, Lymph % (Auto) 21.6, [place] % (Auto) 10.1 H, Eos % (Auto) 2.6, Baso % (Auto) 0.7,Absolute Neuts (auto) 5.6, Absolute Lymphs (auto) 1.89, Nucleated RBC % 0, Sodium 136, Potassium 4.2, Chloride 99, Carbon Dioxide 25.1, Anion Gap 12, BUN 12, Creatinine 0.58 L, Estim Creat Clear [id number], Est GFR (MDRD) Non-Af 106, BUN/Creatinine Ratio 20.0, Glucose 174 H, Calcium 9.3 Micro: Microbiology 01/17/25 10:51 Urine Catheter - Catheter Urine Culture - Preliminary Gram negative edward GNR lactose credit control assistant Physical Exam Const alert and no apparent distress HEENT head/scalp atraumatic and moist oral mucous membranes Resp normal respiratory effort, no retractions, no use of accessory muscles and clearto auscultation bilaterally Cardio regular rate, regular rhythm, S1 normal heart sound and S2 normal heart sound GI normal to inspection, nondistended, normoactive bowel sounds, soft to palpation,non-tender and non-distended Extremity normal to inspection and full ROM Assessment & Plan Assessment/Plan (1) Sepsis: PLAN: Present on admission. qSOFA of 2 with encephalopathy and a respiratory rate of 22 Likely secondary to UTI. Follow-up cultures Continue with IV fluids (2) Urinary tract infection: PLAN: Catheter associated Received ceftriaxone given prior history of Klebsiella Continue ceftriaxone UCx growing out GNR and GNRLF. Monitor (3) Metabolic encephalopathy: PLAN: Resolved Secondary to sepsis and UTI Hold potentiating medications including baclofen PLAN: Plan Debility: Patient is bedbound at baseline. PT OT Hypothyroidism: Continue levothyroxine VTE prophylaxis with enoxaparin Charges/Coding Visit Charges Inpatient E&M: 68778 Subs Hosp L2 01/19/25 1326 Cosigner Signature (if applicable): CC: ~ [facility] [address] [place] [id number] Progress Note - Hospitalist 01/20/25 0821 MR#: [id number] Acct: [id number] Name: JORGE COVINGTON Rep #:[id number] : 1955 69 From: Basilio Dill DO PCP: Dr. Brian Cardona MD Status:AD M IN Location: [place] [address] Reason for Visit Chief Complaint: confusion. Subjective Subjective Feeling good. Objective Data Objective Data Vital Signs: Vital Signs Temp Pulse Resp BP Pulse Ox O2 Del Method O2 Flow Rate 36.3 C L 82 16 110/66 95 Nasal Cannula 2 01/20/25 03:53 01/20/25 03:53 01/20/25 03:53 01/20/25 03:53 01/20/25 03:53 01/20/25 03:53 01/20/25 03:53 Oxygen Flow Rate (L/min) 2 Oxygen Delivery Method Nasal Cannula Weight: 104.8 kg Body Mass Index (BMI) 37.3 Intake & Output: Intake and Output for Last 24 Hours 01/18/25 01/19/25 01/20/25 23:59 23:59 23:59 Intake Total 50 / 50 800 / 800 Output Total 3850 / 3850 1000 / 1000 Balance -3800 / -3800 -200 / -200 Lab / Micro Data 01/19/25 05:06 01/19/25 05:06 Micro: Microbiology 01/17/25 10:35 Blood Culture (Wb) - Right Hand Blood Culture - Preliminary No growth in 48 hours. 01/17/25 10:35 Blood Culture (Wb) - Left Hand Blood Culture - Preliminary No growth in 48 hours. 01/17/25 10:51 Urine Catheter - Catheter Urine Culture - Preliminary Gram negative edward GNR lactose credit control assistant Physical Exam Const alert and no apparent distress HEENT head/scalp atraumatic and moist oral mucous membranes Resp normal respiratory effort and no retractions Cardio regular rate, regular rhythm, S1 normal heart sound and S2 normal heart sound GI normal to inspection, nondistended, normoactive bowel sounds and soft to palpation Extremity normal to inspection and full ROM Neuro Sensorium / Orientation: awake, alert, oriented to person, oriented to place andoriented to time Assessment & Plan Assessment/Plan (1) Sepsis: PLAN: Present on admission. qSOFA of 2 with encephalopathy and a respiratory rate of 22 Likely secondary to UTI. Cultures showing citrobacter freundii, providencia. DC with levofloxacin (2) Urinary tract infection: PLAN: Catheter associated Cultures showing citrobacter freundii, providencia. DC with levofloxacin (3) Metabolic encephalopathy: PLAN: Resolved Secondary to sepsis and UTI Hold potentiating medications including baclofen PLAN: Plan Debility: Patient is bedbound at baseline. PT OT Hypothyroidism: Continue levothyroxine VTE prophylaxis with enoxaparin DC home with [facility] 01/20/25 1117 Cosigner Signature (if applicable): CC: ~ [facility]igned [facility] Basilio Dill [facility] Note Date/Time January 18, 2025 3 :48pm [facility] Medical Records Department [address] [place] [address] Progress Note - Hospitalist 01/18/25 0809 MR#: [id number] Acct: [id number] Name: JORGE COVINGTON Rep #:[id number] : 1955 69 From: Basilio Dill DO PCP: Dr. Brian Cardona MD Status:AD M IN Location: [place] [address] Reason for Visit Chief Complaint: confusion. Subjective Subjective Feeling better. Objective Data Objective Data Vital Signs: Vital Signs Temp Pulse Resp BP Pulse Ox O2 Del Method O2 Flow Rate 37.1 C 80 18 113/58 L 92 Nasal Cannula 2 01/18/25 03:30 01/18/25 03:30 01/18/25 03:30 01/18/25 03:30 01/18/25 03:30 01/18/25 03:30 01/18/25 03:30 Oxygen Flow Rate (L/min) 2 Oxygen Delivery Method Nasal Cannula Weight: 104.8 kg Body Mass Index (BMI) 37.3 Intake & Output: Intake and Output for Last 24 Hours 01/16/25 01/17/25 01/18/25 23:59 23:59 23:59 Intake Total 3450.0 / 3450.0 Output Total 700 / 1300 1600 / 1600 Balance 2750.0 / 2150.0 -1600 / -1600 Lab / Micro Data 01/18/25 05:23 01/18/25 05:23 Labs: Laboratory Results - last 24 hr 01/17/25 10:35: WBC 8.1, RBC 4.67, Hgb 13.0, Hct 41.0, MCV 87.8, MCH 27.8, MCHC 31.7 L, RDW Std Deviation 54.6 H, RDW Coeff of Josue 17.2 H, Plt Count 378, MPV 9.8, Immature Gran % (Auto) 1.000 H, Neut % (Auto) 63.4, Lymph % (Auto) 21.3, [place] % (Auto) 9.5, Eos % (Auto) 4.1, Baso % (Auto) 0.7, Absolute Neuts (auto) 5.1, Absolute Lymphs (auto) 1.72, Nucleated RBC % 0, Sodium 136, Potassium 4.6, Chloride 101, Carbon Dioxide 23.7, Anion Gap 11, BUN 11, Creatinine 0.59 L, Estim Creat Clear Calc 102.95, Est GFR (MDRD) Non-Af 106, BUN/Creatinine Ratio 18.9, Glucose 258 H, Lactic Acid 2.1 H*, Calcium 9.2, Total Bilirubin < 0.15, AST 18, ALT 21, Alkaline Phosphatase 121, Total Protein 7.2, Albumin 3.5, Globulin 3.8, Albumin/Globulin Ratio 0.9 01/17/25 10:51: Urine Color Yellow, Urine Clarity Cloudy, Urine pH 6.0, Ur Specific [place] 1.020, Urine Protein 30 H, Urine Glucose (UA) Normal, Urine Ketones Negative, Urine Occult Blood 25 H, Urine Nitrite Positive H, Urine Bilirubin Negative, Urine Urobilinogen Normal, Ur Leukocyte Esterase 500 H, Urine RBC 0 SEEN, Urine WBC 10-25 SEEN, Ur Squamous Epith Cells 0 SEEN, Urine Bacteria 2+, Urine Mucus 0 SEEN 01/17/25 15:11: Lactic Acid 2.3 H* 01/18/25 05:23: WBC 8.6, RBC 4.18 L, Hgb 11.4 L, Hct 36.8 L, MCV 88.0, MCH 27.3,MCHC 31.0 L, RDW Std Deviation 54.1 H, RDW Coeff of Josue 16.8 H, Plt Count 398, MPV 9.7, Immature Gran % (Auto) 0.900, Neut % (Auto) 67.2, Lymph % (Auto) 19.9, [place] % (Auto) 7.8, Eos % (Auto) 3.4, Baso % (Auto) 0.8, Absolute Neuts (auto) 5.8, Absolute Lymphs (auto) 1.71, Nucleated RBC % 0, Sodium 135, Potassium 4.6, Chloride 102, Carbon Dioxide 23.6, Anion Gap 10, BUN 9, Creatinine 0.52 L, EstimCreat Clear Calc 100.25, Est GFR (MDRD) Non-Af 110, BUN/Creatinine Ratio 17.8, Glucose 165 H, Calcium 8.7 Radiography Diagnostic Testing: Radiology Impression Chest X-Ray 01/17/25 10:15 IMPRESSION: Blunting of both costophrenic angles with the increased markings at the lung bases suggestive of bibasilar atelectasis. Reading Location: [place] [address] Physical Exam Const alert and no apparent distress Constitutional Narrative: clean shaven today. Resp normal respiratory effort, no retractions, no use of accessory muscles and clearto auscultation bilaterally Cardio regular rate, regular rhythm, S1 normal heart sound and S2 normal heart sound GI normal to inspection, nondistended, normoactive bowel sounds, soft to palpation,non-tender and non-distended Neuro Sensorium / Orientation: awake and alert Assessment & Plan Assessment/Plan (1) Sepsis: PLAN: Present on admission. qSOFA of 2 with encephalopathy and a respiratory rate of 22 Likely secondary to UTI. Follow-up cultures Continue with IV fluids (2) Urinary tract infection: PLAN: Catheter associated Received ceftriaxone given prior history of Klebsiella Continue ceftriaxone UCx growing out GNR and GNRLF (3) Metabolic encephalopathy: PLAN: Resolved Secondary to sepsis and UTI Hold potentiating medications including baclofen PLAN: Plan Debility: Patient is bedbound at baseline. PT OT Hypothyroidism: Continue levothyroxine VTE prophylaxis with enoxaparin Charges/Coding Visit Charges Inpatient E&M: 37796 Subs Hosp L2 01/18/25 1448 <Electronically signed by Basilio Dill DO> Cosigner Signature (if applicable): CC: ~ Signed [facility] Work Phone: Progress note Author Basilio Dill [facility] Note Date/Time January 19, 2025 2 :26pm [facility] Medical Records Department [address] [place] [address] Progress Note - Hospitalist 01/19/25 0835 MR#: [id number] Acct: [id number] Name: JORGE COVINGTON Rep #:[id number] : 1955 69 From: Basilio Dill DO PCP: Dr. Brian Cardona MD Status:AD M IN Location: [place] [address] Reason for Visit Chief Complaint: confusion. Subjective Subjective Feeling well. Objective Data Objective Data Vital Signs: Vital Signs Temp Pulse Resp BP Pulse Ox O2 Del Method O2 Flow Rate 36.3 C L 89 18 134/57 H 94 Nasal Cannula 2 01/19/25 03:26 01/19/25 03:26 01/19/25 03:26 01/19/25 03:26 01/19/25 03:26 01/19/25 03:26 01/19/25 03:26 Oxygen Flow Rate (L/min) 2 Oxygen Delivery Method Nasal Cannula Weight: 104.8 kg Body Mass Index (BMI) 37.3 Intake & Output: Intake and Output for Last 24 Hours 01/17/25 01/18/25 01/19/25 23:59 23:59 23:59 Intake Total 3450.0 / 3450.0 50 / 50 Output Total 700 / 1300 3850 / 3850 400 / 400 Balance 2750.0 / 2150.0 -3800 / -3800 -400 / -400 Lab / Micro Data 01/19/25 05:06 01/19/25 05:06 Labs: Laboratory Results - last 24 hr 01/19/25 05:06: WBC 8.8, RBC 4.65, Hgb 12.5 L, Hct 39.8 L, MCV 85.6, MCH 26.9 L,MCHC 31.4 L, RDW Std Deviation 51.1 H, RDW Coeff of Josue 16.5 H, Plt Count 421, MPV 9.6, Immature Gran % (Auto) 1.000 H, Neut % (Auto) 64.0, Lymph % (Auto) 21.6, [place] % (Auto) 10.1 H, Eos % (Auto) 2.6, Baso % (Auto) 0.7, Absolute Neuts (auto) 5.6, Absolute Lymphs (auto) 1.89, Nucleated RBC % 0, Sodium 136, Potassium 4.2, Chloride 99, Carbon Dioxide 25.1, Anion Gap 12, BUN 12, Creatinine 0.58 L, Estim Creat Clear Calc 100.25, Est GFR (MDRD) Non-Af 106, BUN/Creatinine Ratio 20.0, Glucose 174 H, Calcium 9.3 Micro: Microbiology 01/17/25 10:51 Urine Catheter - Catheter Urine Culture - Preliminary Gram negative edward GNR lactose credit control assistant Physical Exam Const alert and no apparent distress HEENT head/scalp atraumatic and moist oral mucous membranes Resp normal respiratory effort, no retractions, no use of accessory muscles and clearto auscultation bilaterally Cardio regular rate, regular rhythm, S1 normal heart sound and S2 normal heart sound GI normal to inspection, nondistended, normoactive bowel sounds, soft to palpation,non-tender and non-distended Extremity normal to inspection and full ROM Assessment & Plan Assessment/Plan (1) Sepsis: PLAN: Present on admission. qSOFA of 2 with encephalopathy and a respiratory rate of 22 Likely secondary to UTI. Follow-up cultures Continue with IV fluids (2) Urinary tract infection: PLAN: Catheter associated Received ceftriaxone given prior history of Klebsiella Continue ceftriaxone UCx growing out GNR and GNRLF. Monitor (3) Metabolic encephalopathy: PLAN: Resolved Secondary to sepsis and UTI Hold potentiating medications including baclofen PLAN: Plan Debility: Patient is bedbound at baseline. PT OT Hypothyroidism: Continue levothyroxine VTE prophylaxis with enoxaparin Charges/Coding Visit Charges Inpatient E&M: 27304 Subs Hosp L2 01/19/25 1326 <Electronically signed by Basilio Dill DO> Cosigner Signature (if applicable): CC: ~ Signed [facility] Work Phone: Progress note Author Basilio Dill [facility] Note Date/Time January 20, 2025 1 2:17pm [facility] Medical Records Department [address] [place] [address] Progress Note - Hospitalist 01/20/25820 MR#: [id number] Acct: [id number] Name: JORGE COVINGTON Rep #:[id number] : 1955 69 From: Basilio Dill DO PCP: Dr. Brian Cardona MD Status:AD M IN Location: [place] [address] Reason for Visit Chief Complaint: confusion. Subjective Subjective Feeling good. Objective Data Objective Data Vital Signs: Vital Signs Temp Pulse Resp BP Pulse Ox O2 Del Method O2 Flow Rate 36.3 C L 82 16 110/66 95 Nasal Cannula 2 01/20/25 03:53 01/20/25 03:53 01/20/25 03:53 01/20/25 03:53 01/20/25 03:53 01/20/25 03:53 01/20/25 03:53 Oxygen Flow Rate (L/min) 2 Oxygen Delivery Method Nasal Cannula Weight: 104.8 kg Body Mass Index (BMI) 37.3 Intake & Output: Intake and Output for Last 24 Hours 01/18/25 01/19/25 01/20/25 23:59 23:59 23:59 Intake Total 50 / 50 800 / 800 Output Total 3850 / 3850 1000 / 1000 Balance -3800 / -3800 -200 / -200 Lab / Micro Data 01/19/25 05:06 01/19/25 05:06 Micro: Microbiology 01/17/25 10:35 Blood Culture (Wb) - Right Hand Blood Culture - Preliminary No growth in 48 hours. 01/17/25 10:35 Blood Culture (Wb) - Left Hand Blood Culture - Preliminary No growth in 48 hours. 01/17/25 10:51 Urine Catheter - Catheter Urine Culture - Preliminary Gram negative edward GNR lactose credit control assistant Physical Exam Const alert and no apparent distress HEENT head/scalp atraumatic and moist oral mucous membranes Resp normal respiratory effort and no retractions Cardio regular rate, regular rhythm, S1 normal heart sound and S2 normal heart sound GI normal to inspection, nondistended, normoactive bowel sounds and soft to palpation Extremity normal to inspection and full ROM Neuro Sensorium / Orientation: awake, alert, oriented to person, oriented to place andoriented to time Assessment & Plan Assessment/Plan (1) Sepsis: PLAN: Present on admission. qSOFA of 2 with encephalopathy and a respiratory rate of 22 Likely secondary to UTI. Cultures showing citrobacter freundii, providencia. DC with levofloxacin (2) Urinary tract infection: PLAN: Catheter associated Cultures showing citrobacter freundii, providencia. DC with levofloxacin (3) Metabolic encephalopathy: PLAN: Resolved Secondary to sepsis and UTI Hold potentiating medications including baclofen PLAN: Plan Debility: Patient is bedbound at baseline. PT OT Hypothyroidism: Continue levothyroxine VTE prophylaxis with enoxaparin DC home with [facility] 01/20/25 1117 <Electronically signed by Basilio Dill DO> Cosigner Signature (if applicable): CC: ~ Signed [facility] Work Phone: Reason for referral (narrative)No reason for referral information availableWDayton [facility] Work Phone: Summary Purpose Family History No Family History Records Found Relationship Condition Age at Onset Recorded Date/T marguerite mother Cerebrovascular accident (CVA) Unknown Hypertension Unknown father Hypertension Unknown Malignant neoplasm of prostate Unknown Advance Directives No Advanced Directives Records Found Advance Directive Response Recorded Date/ Time Living Will Yes February 08, 022 11:04am Power of Carbon Capture Power Plant Operator Yes February 08, 2022 11:04am Name of Medical Power of Carbon Capture Power Plant Operator Kassandra, wi fe, POA February 08, 2022 11:04am Advance Directive Response Recorded Date/ Time Name of Medical Power of Carbon Capture Power Plant Operator Kassandra, wi fe, POA February 08, 2022 11:04am Living Will Yes February 08, 11:04am Power of Carbon Capture Power Plant Operator Yes February 08, 2022 11:04am Advance Directive Response Recorded Date/ Time Name of Medical Power of Carbon Capture Power Plant Operator Kassandra, wi fe, POA February 08, 2022 11:04am Name of Medical Power of Carbon Capture Power Plant Operator . April 28, 2022 5:34pm Living Will Yes April 28 5:34pm Power of Carbon Capture Power Plant Operator Yes April 28, 2022 5:34pm Advance Directive Response Recorded Date/ Time Name of Medical Power of Carbon Capture Power Plant Operator Kassandra, wi fe, POA February 08, 2022 11:04am Name of Medical Power of Carbon Capture Power Plant Operator . April 28, 2022 5:34pm Living Will No May 02 12:05pm Power of Carbon Capture Power Plant Operator No May 02, 2022 12:05pm Advance Directive Response Recorded Date/ Time Name of Medical Power of Carbon Capture Power Plant Operator . April 28, 2022 6:34pm Living Will No June 16, 2022 9:22am Power of Carbon Capture Power Plant Operator No June 16 9:22am Advance Directive Response Recorded Date/ Time Living Will No June 16, 2022 9:22am Power of Carbon Capture Power Plant Operator No June 16 9:22am Advance Directive Response Recorded Date/ Time Living Will Yes October 13, 2022 10:42am Power of Carbon Capture Power Plant Operator Yes October 13 10:42am Advance Directive Response Recorded Date/ Time Name of Medical Power of Carbon Capture Power Plant Operator November 21, 2022 4:09pm Living Will Yes November 21 4:09pm Power of Carbon Capture Power Plant Operator Yes November 21, 023 4:09pm Advance Directive Response Recorded Date/ Time Name of Medical Power of Carbon Capture Power Plant Operator November 21, 2022 3:09pm Living Will Yes November 21 3:09pm Power of Carbon Capture Power Plant Operator Yes November 21, 2 023 3:09pm Advance Directive Response Recorded Date/ Time Living Will Yes November 21 3:09pm Power of Carbon Capture Power Plant Operator Yes November 21, 2 023 3:09pm Advance Directive Response Recorded Date/ Time Living Will Yes November 21 4:09pm Power of Carbon Capture Power Plant Operator Yes November 21, 2 023 4:09pm Date Activated Date Inactivated Comments 12/11/2023 12:03 PM 12/11/2023 5:19 PM Date Activated Date Inactivated Comments 12/11/2023 12:03 PM 12/11/2023 5:19 PM Advance Directive Response Recorded Date/ Time Living Will Yes August 26, 2023 3 :30pm Power of Carbon Capture Power Plant Operator Yes August 26, 2023 3:30pm Living Will Yes January 24 3:18pm Power of Carbon Capture Power Plant Operator Yes January 25, 2024 3:18pm Living Will Yes February 27 1:17am Power of Carbon Capture Power Plant Operator Yes February 28, 2024 1:17am Living Will Yes March 30 1:12am Power of Carbon Capture Power Plant Operator Yes March 30, 2 025 1:12am Living Will No June 09, 2024 9:05am Power of Carbon Capt[employer] Power Plant Operator No June 09 9:05am Living Will Yes April 30 1:37am Power of Carbon Capture Power Plant Operator Yes April 30, 2024 1:37am Living Will Yes May 28, 2024 2:49am Power of Carbon Capture Power Plant Operator Yes May 28 2:49am Advance Directive Response Recorded Date/ Time Living Will Yes August 26, 2023 3 :30pm Power of Carbon Capture Power Plant Operator Yes August 26, 2023 3:30pm Living Will Yes January 24 3:18pm Power of Carbon Capture Power Plant Operator Yes January 25, 2024 3:18pm Living Will Yes February 27 1:17am Power of Carbon Capture Power Plant Operator Yes February 28, 2024 1:17am Living Will Yes March 30 1:12am Power of Carbon Capture Power Plant Operator Yes March 30, 2 025 1:12am Living Will Yes June 09, 2024 2:13pm Power of Carbon Capture Power Plant Operator Yes June 09 2:13pm Name of Medical Power of Carbon Capture Power Plant Operator Dasia Covington , June 09, 2024 2:13pm Living Will Yes April 30 1:37am Power of Carbon Capture Power Plant Operator Yes April 30, 2024 1:37am Living Will Yes May 28, 2024 2:49am Power of Carbon Capture Power Plant Operator Yes May 28 2:49am Advance Directive Response Recorded Date/ Time Living Will Yes August 26, 2023 3 :30pm Do you have a Healthcare Pow er of Carbon Capture Power Plant Operator? Yes August 26, 2023 3:30pm Living Will Yes February 27 1:17am Do you have a Healthcare Pow er of Carbon Capture Power Plant Operator? Yes February 28, 2024 1:17am Living Will Yes March 30 1:12am Do you have a Healthcare Pow er of Carbon Capture Power Plant Operator? Yes March 30, 2024 1:12am Living Will Yes June 09, 2024 2:13pm Do you have a Healthcare Pow er of Carbon Capture Power Plant Operator? Yes June 09, 2024 2:13pm Name of Medical Power of Carbon Capture Power Plant Operator Dasia Covington , June 09, 2024 2:13pm Living Will Yes April 30 1:37am Do you have a Healthcare Pow er of Carbon Capture Power Plant Operator? Yes April 30, 2024 1:37am Living Will Yes May 28, 2024 2:49am Do you have a Healthcare Pow er of Carbon Capture Power Plant Operator? Yes May 28, 2024 2:49am Advance Directive Response Recorded Date/ Time Living Will Yes March 30 1:12am Do you have a Healthcare Pow er of Carbon Capture Power Plant Operator? Yes March 30, 2024 1:12am Living Will Yes June 09, 2024 2:13pm Do you have a Healthcare Pow er of Carbon Capture Power Plant Operator? Yes June 09, 2024 2:13pm Name of Medical Power of Carbon Capture Power Plant Operator Dasia Covington , June 09, 2024 2:13pm Do you have a Healthcare Pow er of Carbon Capture Power Plant Operator? Yes July 29, 2024 11:08pm Name of Medical Power of Carbon Capture Power Plant Operator Abraham Covington July 29, 2024 11:08pm Living Will Yes April 30 1:37am Do you have a Healthcare Pow er of Carbon Capture Power Plant Operator? Yes April 30, 2024 1:37am Living Will Yes May 28, 2024 2:49am Do you have a Healthcare Pow er of Carbon Capture Power Plant Operator? Yes May 28, 2024 2:49am Living Will Yes June 28, 2024 12:51am Do you have a Healthcare Pow er of Carbon Capture Power Plant Operator? Yes June 28, 2024 12:51am Do you have a Healthcare Pow er of Carbon Capture Power Plant Operator? No August 02, 2024 10:57am Advance Directive Response Recorded Date/ Time Living Will Yes June 09, 2024 2:13pm Do you have a Healthcare Pow er of Carbon Capture Power Plant Operator? Yes June 09, 2024 2:13pm Name of Medical Power of Carbon Capture Power Plant Operator Dasia Covington , June 09, 2024 2:13pm Do you have a Healthcare Pow er of Carbon Capture Power Plant Operator? Yes July 29, 2024 11:08pm Name of Medical Power of Carbon Capture Power Plant Operator Abraham Covington July 29, 2024 11:08pm Do you have a Healthcare Pow er of Carbon Capture Power Plant Operator? No August 07, 2024 5:53pm Living Will Yes April 30 1:37am Do you have a Healthcare Pow er of Carbon Capture Power Plant Operator? Yes April 30, 2024 1:37am Living Will Yes May 28, 2024 2:49am Do you have a Healthcare Pow er of Carbon Capture Power Plant Operator? Yes May 28, 2024 2:49am Living Will Yes June 28, 2024 12:51am Do you have a Healthcare Pow er of Carbon Capture Power Plant Operator? Yes June 28, 2024 12:51am Do you have a Healthcare Pow er of Carbon Capture Power Plant Operator? No August 02, 2024 10:57am Advance Directive Response Recorded Date/ Time Living Will Yes June 09, 2024 2:13pm Do you have a Healthcare Pow er of Carbon Capture Power Plant Operator? Yes June 09, 2024 2:13pm Name of Medical Power of Carbon Capture Power Plant Operator Dasia Covington , June 09, 2024 2:13pm Living Will Yes July 28, 2024 12 :38am Do you have a Healthcare Pow er of Carbon Capture Power Plant Operator? Yes July 28, 2024 12:38am Do you have a Healthcare Pow er of Carbon Capture Power Plant Operator? Yes July 29, 2024 11:08pm Name of Medical Power of Carbon Capture Power Plant Operator Abraham Covington July 29, 2024 11:08pm Do you have a Healthcare Pow er of Carbon Capture Power Plant Operator? No August 07, 2024 5:53pm Living Will Yes May 28, 2024 2:49am Do you have a Healthcare Pow er of Carbon Capture Power Plant Operator? Yes May 28, 2024 2:49am Living Will Yes June 28, 2024 12:51am Do you have a Healthcare Pow er of Carbon Capture Power Plant Operator? Yes June 28, 2024 12:51am Do you have a Healthcare Pow er of Carbon Capture Power Plant Operator? No August 02, 2024 10:57am Advance Directive Response Recorded Date/ Time Living Will Yes July 28, 2024 12 :38am Do you have a Healthcare Power of Carbon Capture Power Plant Operator? Yes July 28, 2024 12:38am Do you have a Healthcare Power of Carbon Capture Power Plant Operator? Yes July 29, 2024 11:08pm Name of Medical Power of Carbon Capture Power Plant Operator Abraham Covington July 29, 2024 11:08pm Do you have a Healthcare Power of Carbon Capture Power Plant Operator? No August 07, 2024 5:53pm Living Will Yes May 28, 2024 2:49am Do you have a Healthcare Power of Carbon Capture Power Plant Operator? Yes May 28, 2024 2:49am Living Will Yes June 28, 2024 12:51am Do you have a Healthcare Power of Carbon Capture Power Plant Operator? Yes June 28, 2024 12:51am Do you have a Healthcare Power of Carbon Capture Power Plant Operator? No August 02, 2024 10:57am Advance Directive Response Recorded Date/ Time Living Will Yes July 28, 2024 12 :38am Do you have a Healthcare Power of Carbon Capture Power Plant Operator? Yes July 28, 2024 12:38am Do you have a Healthcare Power of Carbon Capture Power Plant Operator? Yes July 29, 2024 11:08pm Name of Medical Power of Carbon Capture Power Plant Operator Abraham Covington July 29, 2024 11:08pm Do you have a Healthcare Power of Carbon Capture Power Plant Operator? No August 07, 2024 5:53pm Living Will Yes June 28, 2024 12:51am Do you have a Healthcare Power of Carbon Capture Power Plant Operator? Yes June 28, 2024 12:51am Do you have a Healthcare Power of Carbon Capture Power Plant Operator? No August 02, 2024 10:57am Advance Directive Response Recorded Date/ Time Living Will Yes July 28, 2024 12 :38am Do you have a Healthcare Power of Carbon Capture Power Plant Operator? Yes July 28, 2024 12:38am Do you have a Healthcare Power of Carbon Capture Power Plant Operator? Yes July 29, 2024 11:08pm Name of Medical Power of Carbon Capture Power Plant Operator Abraham Covington July 29, 2024 11:08pm Do you have a Healthcare Power of Carbon Capture Power Plant Operator? No August 07, 2024 5:53pm Do you have a Healthcare Power of Carbon Capture Power Plant Operator? No August 02, 2024 10:57am Advance Directive Response Recorded Date/ Time Do you have a Healthcare Power of Carbon Capture Power Plant Operator? No January 17, 2025 12:21pm Hospital Course Note HNO ID: [id number] Author: Eliseo Romo Service: ? Author Type: [...] (more content not included)... Note HNO ID: [id number] Author: Aparna Armas Service: Anesthesiology Author Type: Nurse [employer] Type: Procedures Filed: 01/22/2019 11:43 PM Note Text: INTUBATION PROCEDURE NOTE PROCEDURE DATE: January 22, 2019 PROCEDURE START TIME: 2329 PROCEDURE: OROTRACHEAL INTUBATION PRIMARY PROCEDURALIST: Dank Armas APRN.CRNA TACK WELDER(S): None INFORMED CONSENT: Due to emergent situation [...] not included)... Procedure Findings Note HNO ID: [id number] Author: Aparna Armas Service: Anesthesiology Author Type: Nurse [employer] Scout Type: Procedures Filed: 01/22/2019 11:43 PM Note Text: INTUBATION PROCEDURE NOTE PROCEDURE DATE: January 22, 2019 PROCEDURE START TIME: 2329 PROCEDURE: OROTRACHEAL INTUBATION PRIMARY PROCEDURALIST: Dank Armas APRN.CRNA TACK WELDER(S): None INFORMED CONSENT: Due to emergent situation [...] 2024 2:28 pm COMPLICATED URINARY TRACT INFECTION [facility] 2024 12:06pm Reason for Visit Admit Date Right ischial pressure sore January 2:53pm Right ischial pressure sore, stage 4 Jan 2:53pm Right ischial pressure sore February 3:09pm Right ischial pressure sore, stage 4 [facility] 3:09pm Right ischial pressure sore April [...] 3:30pm Right ischial pressure sore, stage 4 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, 2024 12:06pm Spinal cord injury June 09, 2024 12: 06pm SIRS (systemic inflammatory response syn drome) June 09, 2024 12:06pm Right ischial pressure sore June 27, 2024 3:30pm Right ischial pressure sore, stage 4 [facility] 2024 3:30pm Right ischial pressure sore July [...] COMPLICATED URINARY TRACT INFECTION [facility] 2024 1:32pm DAY MONITOR June 22, 2024 [...] pm wound October 03, 2024 3:20p m Chief Complaint Admit Date 30 DAY MONITOR June 22, 2024 8:0 [...] pm wound October 03, 2024 3:20p m wound October 04, 2024 1:48p m THORACIC MYELOPATHY October 14, 2024 6:56 am Reason for Visit Admit Date Right ischial pressure sore June 27, 2024 [...] Thoracic myelopathy September 16, 2024 2:45 pm Decubitus ulcer of right buttock, stage 3 October 03, 2024 3:20pm Chief Complaint Admit Date wound July 25, 2024 10: 14am wound [...] pm wound October 03, 2024 3:20p m wound October 04, 2024 1:48p m THORACIC MYELOPATHY October 14, 2024 6:56 am Reason for Visit Admit Date Right ischial pressure sore July 25, 2024 [...] Thoracic myelopathy September 16, 2024 2:45 pm Decubitus ulcer of right buttock, stage 3 October 03, 2024 3:20pm Chief Complaint Admit Date wound July 25, 2024 10: 14am wound [...] pm wound October 03, 2024 3:20p m wound October 04, 2024 1:48p m THORACIC MYELOPATHY October 14, 2024 6:56 am CERVICAL SPINE October 31, 2024 8:5 9am Chief Complaint Admit Date wound July 25, 2024 10: 14am wound [...] 2024 2:45 pm wound October 03, 2024 12:00 pm wound October 03, 2024 3:20p m THORACIC MYELOPATHY October 14, 2024 6:56 am CERVICAL SPINE October 31, 2024 8:5 9am wound November 14, 2024 2: 57pm wound November 14, 2024 4: 55pm Reason for Visit Admit Date Right ischial pressure sore July 25, 2024 [...] Right ischial pressure sore, stage 4 Mike 2024 2:27pm Scoliosis September 16, 2024 2:45 pm Cervical myelopathy September 16, 2024 2:45 pm Fusion of spine, cervical region September [id number] 2:45pm Thoracic myelopathy September 16, 2024 2:45 pm Decubitus ulcer of right buttock, stage 3 October 03, 2024 3:20pm Scoliosis October 31, 2024 8:5 9am Thoracic myelopathy October 31, 2024 8:5 9am Cervical myelopathy October 31, 2024 8:5 9am Decubitus ulcer of right buttock, stage 3 November 14, 2024 2:57pm Chief Complaint Admit Date SEPSIS, COMPLICATED UTI July 29, 2024 9: 30pm SEPSIS, COMPLICATED UTI July 31, 2024 8: 03am SEPSIS, COMPLICATED UTI August 01, 2024 2: 19am lethargy August 02, 2024 10:51a m not feling well August 07, 2024 5:42p m wound August 29, 2024 2:27p m wound August 29, 2024 6:20p m CERVICAL SPINE September 16, 2024 2:45 pm wound October 03, 2024 12:00 pm wound October 03, 2024 3:20p m THORACIC MYELOPATHY October 14, 2024 6:56 am CERVICAL SPINE October 31, 2024 8:5 9am wound November 14, 2024 2: 57pm wound November 14, 2024 4: 55pm Reason for Visit Admit Date Acidosis, lactic July 29, 2024 9:30pm Catheter-associated [...] Thoracic myelopathy September 16, 2024 2:45 pm Decubitus ulcer of right buttock, stage 3 October 03, 2024 3:20pm Scoliosis October 31, 2024 8:5 9am Thoracic myelopathy October 31, 2024 8:5 9am Cervical myelopathy October 31, 2024 8:5 9am Decubitus ulcer of right buttock, stage 3 November 14, 2024 2:57pm Chief Complaint Admit Date CERVICAL SPINE September 16, 2024 2:45 pm wound October 03, 2024 12:00 pm wound October 03, 2024 3:20p m THORACIC MYELOPATHY October 14, 2024 6:56 am CERVICAL SPINE October 31, 2024 8:5 9am wound November 14, 2024 2: 57pm wound November 14, 2024 4: 55pm wound December 26, 2024 2:59pm wound December 28, 2024 8: 28am Reason for Visit Admit Date Scoliosis September 16, 2024 2:45 pm Cervical myelopathy September 16, 2024 2:45 pm Fusion of spine, cervical region September [id number] 2:45pm Thoracic myelopathy September 16, 2024 2:45 pm Decubitus ulcer of right buttock, stage 3 October 03, 2024 3:20pm Scoliosis October 31, 2024 8:5 9am Thoracic myelopathy October 31, 2024 8:5 9am Cervical myelopathy October 31, 2024 8:5 9am Decubitus ulcer of right buttock, stage 3 November 14, 2024 2:57pm Decubitus ulcer of right buttock, stage 3 December 26, 2024 2:59pm Chief Complaint Admit Date THORACIC MYELOPATHY October 14, 2024 6:56 am CERVICAL SPINE October 31, 2024 8:5 9am wound November 14, 2024 2: 57pm wound November 14, 2024 4: 55pm wound December 26, 2024 2:59pm wound December 28, 2024 8: 28am UTI January 17, 2025 1 2:26pm Urinary tract infection January 17 12:39pm Urinary tract infection January 18 8:09am Urinary tract infection January 19 8:00am Urinary tract infection January 19 8:35am Urinary tract infection January 20 8:21am Reason for Visit Admit Date Scoliosis October 31, 2024 8:5 9am Thoracic myelopathy October 31, 2024 8:5 9am Cervical myelopathy October 31, 2024 8:5 9am Decubitus ulcer of right buttock, stage 3 November 14, 2024 2:57pm Decubitus ulcer of right buttock, stage 3 December 26, 2024 2:59pm Acidosis, lactic January 17, 2025 1 2:26pm Acute delirium January 17, 2025 1 2:26pm Complicated urinary tract infection Octo 2024 12:26pm Goals of care, counseling/discussion Dec [email or web address] 12:26pm Metabolic encephalopathy January 17, 2 025 12:26pm Palliative care encounter January 17, 2025 12:26pm Sepsis January 17, 2025 1 2:26pm Bedridden January 17, 2025 1 2:26pm Scoliosis January 17, 2025 1 2:26pm Urinary tract infection January 17 12:26pm Additional Source Comments (unrecognized sect ion and content) No Status Records FoundNo Status Records FoundNo Status Records FoundNo Status Records FoundNo Status Records FoundNo Status Records Found INFORMATION SOURCE (unrecogn ized section and content) DATE CREATED AUTHOR 06/25/2018 [facility] DATE CREATED AUTHOR AUTHOR'S ORGANIZ ATION 06/25/2018 [facility] DATE CREATED AUTHOR AUTHOR'S ORGANIZ ATION 02/03/2019 [facility] DATE CREATED AUTHOR AUTHOR'S ORGANIZ ATION 05/06/2021 [facility] DATE CREATED AUTHOR AUTHOR'S ORGANIZ ATION 01/23/2025 [facility] DATE CREATED AUTHOR AUTHOR'S ORGANIZ ATION 02/09/2025 [facility] Goals (unrecognized section and content) Goals [...] Active Member Role Status Dates Dr. Brian Cardona MD Primary Care Provider Active Team Status: Active Member Role Status Dates Dr. Brian Cardona MD Primary Care Provider Active Start: May 02, 2024 Kemi Rubio RESEARCH & ANALYTICS MANAGER, RESEARCH & ANALYTICS MANAGER-C Other Provider Active Start: May 02, 2024 Dr. Luca Nayak MD Attending Provider Active Start: May 02, 2024 Dr. Luca Nayak MD Referring Provider Active Start: May 02, 2024 Team Status: Inactive Member Role Status Dates CARLOS Jauregui Referring Provider Active Star t: May 02, 2024 End: May 27, 2024 Dr. Brian Cardona MD Primary Care Provider Active Start: May 02, 2024 End: May 27, 2024 Kemi Rubio RESEARCH & ANALYTICS MANAGER, RESEARCH & ANALYTICS MANAGER-C Attending Provider Active Start: May 02, 2024 End: May 27, 2024 Team Status: Active Member Role Status Dates Dr. Brian Cardona MD Primary Care Provider Active Start: May 30, 2024 Dr. Luca Nayak MD Attending Provider Active Start: May 30, 2024 Dr. Luca Nayak MD Referring Provider Active Start: May 30, 2024 Dr. Luca Nayak MD Other Provider Active Star t: May 30, 2024 Team Status: Inactive Member Role Status Dates Dr. Brian Cardona MD Primary Care Provider Active Start: June 03, 2024 End: June 03, 2024 Dr. Brian Cardona MD Referring Provider Active Start: June 03, 2024 End: June 03, 2024 Dr. Edmundo Quevedo MD Attending Provider Active Start: June 03, 2024 End: June 03, 2024 Team Status: Inactive Member Role Status Dates Dr. Brian Cardona MD Primary Care Provider Active Start: June 03, 2024 End: June 03, 2024 Dr. Alex Mancera MD Attending Provider Active S tart: June 03, 2024 End: June 03, 2024 Team Status: Inactive Member Role Status Dates Dr. Brian Cardona MD Primary Care Provider Active Start: [...] Active Member Role Status Dates Dr. Brian Cardona MD Primary Care Provider Active Start: [...] Active Member Role Status Dates Dr. Brian Cardona MD Primary Care Provider Active Start: [...] Active Member Role Status Dates Dr. Brian Cardona MD Primary Care Provider Active Start: [...] Status: Active Member Role Status Dates Dr. Brain Cardona MD Primary Care Provider Active Start: June 22, 2024 Dr. Juliana Shaw MD Attending Provider Active Start: June 22, 2024 Dr. Juliana Shaw MD Referring Provider Active Start: June 22, 2024 Team Status: Inactive Member Role Status Dates CARLOS Jauregui Referring Provider Active Star t: June 27, 2024 End: June 27, 2024 Dr. Brian Cardona MD Primary Care Provider Active Start: June 27, 2024 End: June 27, 2024 Dr. Luca Nayak MD Attending Provider Active Start: June 27, 2024 End: June 27, 2024 Team Status: Active Member Role Status Dates CARLOS Jauregui Referring Provider Active Star t: June 27, 2024 Dr. Brian Cardona MD Primary Care Provider Active Start: June 27, 2024 Dr. Luca Nayak MD Attending Provider Active Start: June 27, 2024 Dr. Luca Nayak MD Other Provider Active Star t: June 27, 2024 Team Status: Inactive Member Role Status Dates Dr. Brian Cardona MD Primary Care Provider Active Start: July 11, 2024 End: July 11, 2024 Dr. Brian Cardona MD Attending Provider Active Start: July 11, 2024 End: July 11, 2024 Dr. Brian Cardona MD Referring Provider Active Start: July 11, 2024 End: July 11, 2024 Team Status: Inactive Member Role Status Dates CARLOS Jauregui Referring Provider Active Star t: July 25, 2024 End: July 27, 2024 Dr. Brian Cardona MD Primary Care Provider Active Start: July 25, 2024 End: July 27, 2024 Dr. Luca Nayak MD Attending Provider Active Start: July 25, 2024 End: July 27, 2024 Team Status: Active Member Role Status Dates CARLOS Jauregui Referring Provider Active Star t: July 26, 2024 Dr. Brian Cardona MD Primary Care Provider Active Start: July 26, 2024 Dr. Luca Nayak MD Attending Provider Active Start: July 26, 2024 Dr. Luca Nayak MD Other Provider Active Star t: July 26, 2024 Team Status: Inactive Member Role Status Dates Dr. Brian Cardona MD Primary Care Provider Active Start: [...] Active Member Role Status Dates Dr. Brian Cardona MD Primary Care Provider Active Start: [...] Active Member Role Status Dates Dr. Brian Cardona MD Primary Care Provider Active Start: [...] Active Member Role Status Dates Dr. Brian Cardona MD Primary Care Provider Active Start: [...] Inactive Member Role Status Dates Dr. Brian Cardona MD Primary Care Provider Active Start: August 02, 2024 End: August 02, 2024 Dr. Hebert Saavedra MD Attending Provider Active Sta rt: August 02, 2024 End: August 02, 2024 Dr. Hebert Saavedra MD Emergency Provider Active Sta rt: August 02, 2024 End: August 02, 2024 Team Status: Inactive Member Role Status Dates Dr. Brian Cardona MD Primary Care Provider Active Start: August 07, 2024 End: August 07, 2024 Dr. Kit Harris MD Emergency Provider Active Start: August 07, 2024 End: August 07, 2024 Team Status: Inactive Member Role Status Dates CARLOS Jauregui Referring Provider Active Star t: February 24, 2024 End: February 27, 2024 Dr. Brian Cardona MD Primary Care Provider Active Start: February 24, 2024 End: February 27, 2024 Dr. Luca Nayak MD Attending Provider Active Start: February 24, 2024 End: February 27, 2024 Team Status: Active Member Role Status Dates Dr. Brian Cardona MD Primary Care Provider Active Start: February 24, 2024 Dr. Luca Nayak MD Other Provider Active Star t: February 24, 2024 Kemi Rubio RESEARCH & ANALYTICS MANAGER, RESEARCH & ANALYTICS MANAGER-C Attending Provider Active Start: February 24, 2024 Kemi Rubio RESEARCH & ANALYTICS MANAGER, RESEARCH & ANALYTICS MANAGER-C Referring Provider Active Start: February 24, 2024 Team Status: Inactive Member Role Status Dates CARLOS Jauregui Referring Provider Active Star t: March 21, 2024 End: March 29, 2024 Dr. Brian Cardona MD Primary Care Provider Active Start: March 21, 2024 End: March 29, 2024 Kemi Rubio RESEARCH & ANALYTICS MANAGER, RESEARCH & ANALYTICS MANAGER-C Attending Provider Active Start: March 21, 2024 End: March 29, 2024 Team Status: Active Member Role Status Dates Dr. Brian Cardona MD Primary Care Provider Active Start: March 21, 2024 Kemi Rubio RESEARCH & ANALYTICS MANAGER, RESEARCH & ANALYTICS MANAGER-C Other Provider Active Start: March 21, 2024 Dr. Luca Nayak MD Attending Provider Active Start: March 21, 2024 Dr. Luca Nayak MD Referring Provider Active Start: March 21, 2024 Team Status: Inactive Member Role Status Dates Dr. Brian Cardona MD Primary Care Provider Active Start: March 24, 2024 End: March 24, 2024 Dr. Brian Cardona MD Referring Provider Active Start: March 24, 2024 End: March 24, 2024 Kemi Rubio RESEARCH & ANALYTICS MANAGER, RESEARCH & ANALYTICS MANAGER-C Attending Provider Active Start: March 24, 2024 End: March 24, 2024 Team Status: Inactive Member Role Status Dates CARLOS Jauregui Referring Provider Active Star t: April 04, 2024 End: April 29, 2024 Dr. Brian Cardona MD Primary Care Provider Active Start: April 04, 2024 End: April 29, 2024 Kemi Rubio RESEARCH & ANALYTICS MANAGER, RESEARCH & ANALYTICS MANAGER-C Attending Provider Active Start: April 04, 2024 End: April 29, 2024 Team Status: Active Member Role Status Dates Dr. Brian Cardona MD Primary Care Provider Active Start: April 04, 2024 Kemi Rubio RESEARCH & ANALYTICS MANAGER, RESEARCH & ANALYTICS MANAGER-C Other Provider Active Start: April 04, 2024 Dr. Luca Nayak MD Attending Provider Active Start: April 04, 2024 Dr. Luca Nayak MD Referring Provider Active Start: April 04, 2024 Team Status: Active Member Role Status Dates CARLOS Jauregui Referring Provider Active Star t: May 30, 2024 Dr. Brian Cardona MD Primary Care Provider Active Start: May 30, 2024 Dr. Luca Nayak MD Attending Provider Active Start: May 30, 2024 Team Status: Active Member Role Status Dates CARLOS Juaregui Referring Provider Active Star t: May 30, 2024 Dr. Brian Cardona MD Primary Care Provider Active Start: May 30, 2024 Dr. Luca Nayak MD Attending Provider Active Start: May 30, 2024 Dr. Luca Nayak MD Other Provider Active Star t: May 30, 2024 Team Status: Active Member Role Status Dates Dr. Brian Cardona MD Primary Care Provider Active Start: June 09, 2024 Dr. Hebert Saavedra MD Emergency Provider Active Sta rt: June 09, 2024 Dr. Juliana Shaw MD Admit Provider Active Star t: June 09, 2024 Dr. Juliana Shaw MD Attending Provider Active Start: June 09, 2024 Team Status: Active Member Role Status Dates Kemi Rubio RESEARCH & ANALYTICS MANAGER, RESEARCH & ANALYTICS MANAGER-C Attending Pro vider, Referring Provider, Other Provider Active No Primary Care Physician Primary Care Provider Active Team Status: Active Member Role Status Dates Dr. Brian Cardona MD Primary Care Provider Active Dr. Chas Paiz MD Attending Provider Active Dr. Kari Romero MD Referring Provider Active Team Status: Active Member Role Status Dates Dr. Kari Romero MD Attending Provide r, Referring Provider, Other Provider Active Dr. Brian Cardona MD Primary Care Provider Active Team Status: Active Member Role Status Dates Dr. Kari Romero MD Admit Provider, R eferring Provider, Other Provider Active Dr. Brian Cardona MD Primary Care Provider Active Dr. Nakita Arroyo MD Attending Provider Active Team Status: Active Member Role Status Dates Dr. Kari Romero MD Admit Provider, A ttending Provider, Referring Provider, Other Provider Active Dr. Brian Cardona MD Primary Care Provider Active Team Status: Active Member Role Status Dates Kemi Rubio RESEARCH & ANALYTICS MANAGER, RESEARCH & ANALYTICS MANAGER-C Attending Pro vider, Referring Provider, Other Provider Active Dr. Brian Cardona MD Primary Care Provider Active Team Status: Inactive Member Role Status Dates Dr. Brian Cardona MD Primary Care Provider, Referr ing Provider Active Dr. Kari Romero MD Attending Provider Active Team Status: Inactive Member Role Status Dates Dr. Kari Romero MD Admit Provider, A ttending Provider, Referring Provider Active Dr. Brian Cardona MD Primary Care Provider Active Team Status: Inactive Member Role Status Dates CARLOS Jauregui Referring Provider Active Kemi Rubio RESEARCH & ANALYTICS MANAGER, RESEARCH & ANALYTICS MANAGER-C Attending Provider Active No Primary Care Physician Primary Care Provider Active Team Status: Inactive Member Role Status Dates CARLOS Jauregui Referring Provider Active Kemi Rubio RESEARCH & ANALYTICS MANAGER, RESEARCH & ANALYTICS MANAGER-C Attending Provider Active Dr. Brian Cardona MD Primary Care Provider Active Team Status: Inactive Member Role Status Dates No Primary Care Physician Primary Care Provider, Refer ring Provider Active Dr. Kari Romero MD Attending Provider Active Team Status: Inactive Member Role Status Dates CARLOS Orozco Referring Provider Active Kemi Workmanell RESEARCH & ANALYTICS MANAGER, RESEARCH & ANALYTICS MANAGER-C Attending Provider Active No Primary Care Physician Primary Care Provider Active Team Status: Active Member Role Status Dates No Primary Care Physician Primary Care Provider Active Team Status: Active Member Role Status Dates Dr. Brian Cardona MD Primary Care Provider Active Cristy Biedenharn , PA Referring Provider Active Kemi Rubio RESEARCH & ANALYTICS MANAGER, RESEARCH & ANALYTICS MANAGER-C Attending Provider, Other P rovider Active Team Status: Active Member Role Status Dates Dr. Kari Romero MD Attending Provider, Other Provi inge Active No Primary Care Physician Primary Care Provider, Refer ring Provider Active Team Status: Active Member Role Status Dates Cristy Verma PA Referring Provider Active Kemi Rubio RESEARCH & ANALYTICS MANAGER, RESEARCH & ANALYTICS MANAGER-C Attending Provider, Other P rovider Active No Primary Care Physician Primary Care Provider Active Team Status: Inactive Member Role Status Dates Dr. Brian Cardona MD Primary Care Provider Active Cristy Bisivakumar , PA Referring Provider Active Kemi Rubio RESEARCH & ANALYTICS MANAGER, RESEARCH & ANALYTICS MANAGER-C Attending Provider Active Team Status: Inactive Member Role Status Dates Dr. Kari Romero MD Attending Provider Active No Primary Care Physician Primary Care Provider, Refer ring Provider Active Team Status: Active Member Role Status Dates Dr. Brian Cardona MD Primary Care Provider Active Dr. Popeye Messina MD Admit Provider, A ttending Provider, Referring Provider, Other Provider Active Dr. Kari Romero MD Other Provider Active Team Status: Inactive Member Role Status Dates Dr. Brian Cardona MD Primary Care Provider Active Dr. Ted Singh DO Attending Provider, Emergency Provide r Active Team Status: Active Member Role Status Dates Dr. Brian Cardona MD Primary Care Provider Active Cristy GONZALEZ, PA Attending Prov ider, Referring Provider, Other Provider Active Team Status: Active Member Role Status Dates Dr. Brian Cardona MD Primary Care Provider Active Cristy GONZALEZ, PA Other Provider Active Dr. Popeye Messina MD Attending Provider, Referring P rovider Active Team Status: Active Member Role Status Dates Dr. Brian Cardona MD Primary Care Provider Active Dr. Popeye Messina MD Attending Provide r, Referring Provider, Other Provider Active Team Status: Active Member Role Status Dates Dr. Brian Cardona MD Primary Care Provider Active Dr. Popeye Messina MD Admit Provider, R eferring Provider, Other Provider Active Dr. Kari Romero MD Attending Provider, Other Provi inge Active Team Status: Active Member Role Status Dates Dr. Brian Cardona MD Primary Care Provider Active Dr. Popeye Messina MD Admit Provider, R eferring Provider, Other Provider Active Dr. Kari Romero MD Other Provider Active Kemi Rubio RESEARCH & ANALYTICS MANAGER, RESEARCH & ANALYTICS MANAGER-C Attending Provider Active Team Status: Inactive Member Role Status Dates Dr. Brian Cardona MD Primary Care Provider Active Dr. Basilio Basurto DO Attending Provider, Emergency P rovider Active Team Status: Inactive Member Role Status Dates Dr. Brian Cardona MD Primary Care Provider Active Cristy Biedenharn PA, PA Attending Provider, Referrin g Provider Active Team Status: Active Member Role Status Dates Dr. Brian Cardona MD Primary Care Provider Active Dr. Popeye Messina MD Admit Provider, A ttending Provider, Referring Provider Active Dr. Kari Romero MD Other Provider Active Team Status: Inactive Member Role Status Dates Dr. Brian Cardona MD Primary Care Provider Active Dr. Popeye Messina MD Admit Provider, A ttending Provider, Referring Provider Active Dr. Kari Romero MD Other Provider Active Team Status: Inactive Member Role Status Dates Dr. Brian Cardona MD Primary Care Provider Active Dr. Ted Singh DO Emergency Provider Active Team Status: Active Member Role Status Dates Dr. Brian Cardona MD Primary Care Provider Active Dr. Deshawn Mason MD Attending Provider Activ e Dr. Popeye Messina MD Referring Provider Active Team Status: Active Member Role Status Dates Dr. Brian Cardona MD Primary Care Provider Active Cristy Biedenharn PA, PA Referring Provider Active Kemi Rubio RESEARCH & ANALYTICS MANAGER, RESEARCH & ANALYTICS MANAGER-C Attending Provider, Other P rovider Active Team Status: Inactive Member Role Status Dates Dr. Brian Cardona MD Primary Care Provider Active Cristy Biedenharn PA, PA Referring Provider Active Kemi Rubio RESEARCH & ANALYTICS MANAGER, RESEARCH & ANALYTICS MANAGER-C Attending Provider Active Team Status: Active Member Role Status Dates Dr. Brian Cardona MD Primary Care Provider Active Cristy Biedenharn PA, PA Referring Provider Active Kemi Rubio RESEARCH & ANALYTICS MANAGER, RESEARCH & ANALYTICS MANAGER-C Attending Provider Active Team Status: Active Member Role Status Dates Cristy Biedenharn PA, PA Referring Provider Active Kemi Rubio RESEARCH & ANALYTICS MANAGER, RESEARCH & ANALYTICS MANAGER-C Attending Provider, Other P rovider Active No Primary Care Physician Primary Care Provider Active Team Status: Inactive Member Role Status Dates Cristy Biedenharn PA, PA Referring Provider Active Kemi E Ramiro RESEARCH & ANALYTICS MANAGER, RESEARCH & ANALYTICS MANAGER-C Attending Provider Active No Primary Care Physician Primary Care Provider Active Team Status: Active Member Role Status Dates CARLOS Orozco Referring Provider Active Kemi Rubio RESEARCH & ANALYTICS MANAGER, RESEARCH & ANALYTICS MANAGER-C Attending Provider Active No Primary Care Physician Primary Care Provider Active Team Status: Active Member Role Status Dates CARLOS Jauregui Referring Provider Active Kemi Rubio RESEARCH & ANALYTICS MANAGER, RESEARCH & ANALYTICS MANAGER-C Attending Provider, Other P rovider Active Dr. Brian Cardona MD Primary Care Provider Active Team Status: Inactive Member Role Status Dates Dr. Brian Cardona MD Primary Care Pr ovider, Attending Provider, Referring Provider Active Team Status: Active Member Role Status Dates CARLOS Jauregui Referring Provider Active Kemi Rubio RESEARCH & ANALYTICS MANAGER, RESEARCH & ANALYTICS MANAGER-C Attending Provider Active Dr. Brian Cardona MD Primary Care Provider Active It Systems Analyst Relationship Specialty Start Date End Date Brian Cardona MD [address] [place] [address] PCP - General Family Medicine 03/06/23 Team Status: Active Member Role Status Dates Kemi Rubio RESEARCH & ANALYTICS MANAGER, RESEARCH & ANALYTICS MANAGER-C Other Provider Active Dr. Brian Cardona MD Primary Care Provider Active Dr. Popeye Messina MD Attending Provider, Referring P rovider Active Team Status: Inactive Member Role Status Dates Dr. Brian Cardona MD Primary Care Provider, Referr ing Provider Active Rod GONZALEZ, PA Attending Provider Active It Systems Analyst Relationship Specialty Start Date End Date Brian Cardona MD [address] [place] [address] PCP - General Family Medicine 03/06/23 Zackery Carmona MD [address] [place] [address] [address] [place], [place] [id number] Surgeon Urology 08/19/23 It Systems Analyst Relationship Specialty Start Date End Date Brian Cardona MD [address] [place] [address] PCP - General Family Medicine 03/06/23 Zackery Carmona MD [address] [facility] [address] [place] [address] Surgeon Urology 08/19/23 It Systems Analyst Relationship Specialty Start Date End Date Brian Cardona MD [address] [place] [id number] PCP - General Family Medicine 03/06/23 Zackery Carmona MD [address] [address] [place] [address] Surgeon Urology 08/19/23 It Systems Analyst Relationship Specialty Start Date End Date Brian Cardona MD [address] [place] [id number] PCP - General Family Medicine 03/06/23 Zackery Carmona MD [address] [facility] [address] [place] [address] Surgeon Urology 08/19/23 Rikki Casas MD [address] [facility] [address] [place] [id number] Surgeon Urology 10/23/23 It Systems Analyst Relationship Specialty Start Date End Date Brian Cardona MD [address] [place] [id number] PCP - General Family Medicine 03/06/23 Zackery Carmona MD [address] [facility] [address] [place] [address] Surgeon Urology 08/19/23 Rikki Casas MD [address] [place] [address] Surgeon Urology 10/23/23 It Systems Analyst Relationship Specialty Start Date End Date Brian Cardona MD [address] [place] [phone] PCP - General Family Medicine 03/06/23 Zackery Carmona MD [address] [place] [address] Surgeon Urology 08/19/23 Rikki Casas MD [address] [place] [address] Surgeon Urology 10/23/23 It Systems Analyst Relationship Specialty Start Date End Date Brian Cardona MD [address] [place] [phone] PCP - General Family Medicine 03/06/23 Zackery Carmona MD [address] [facility] [address] [place] [address] Surgeon Urology 08/19/23 Rikki Casas MD [address] [place] [address] Surgeon Urology 10/23/23 It Systems Analyst Relationship Specialty Start Date End Date Brian Cardona MD [address] [place] [phone] PCP - General Family Medicine 03/06/23 Zackery Carmona MD [address] [place] [address] Surgeon Urology 08/19/23 Rikki Casas MD [address] [facility] [address] [place] [address] Surgeon Urology 10/23/23 It Systems Analyst Relationship Specialty Start Date End Date Brian Cardona MD [address] [place] [phone] PCP - General Family Medicine 03/06/23 Zackery Carmona MD [address] [facility] [address] [place] [address] Surgeon Urology 08/19/23 Rikki Casas MD [address] [facility] [address] [place] [phone] Surgeon Urology 10/23/23 It Systems Analyst Relationship Specialty Start Date End Date Brian Cardona MD [address] [place] [phone] PCP - General Family Medicine 03/06/23 Zackery Carmona MD [address] [facility] [address] [place] [address] Surgeon Urology 08/19/23 Rikki Casas MD [address] [facility] [address] [place] [phone] Surgeon Urology 10/23/23 Team Status: Active Member Role Status Dates Dr. Brian Cardona MD Primary Care Provider Active Start: [...] Active Member Role Status Dates Dr. Brian Cardona MD Primary Care Provider Active Start: [...] Inactive Member Role Status Dates Dr. Brian Cardona MD Primary Care Provider Active Start: August 02, 2024 End: August 02, 2024 Dr. Hebert Saavedra MD Emergency Provider Active Sta rt: August 02, 2024 End: August 02, 2024 Team Status: Active Member Role Status Dates Dr. Brian Cardona MD Primary Care Provider Active Start: June 22, 2024 Dr. Alex Mancera MD Attending Provider Active S tart: June 22, 2024 Dr. Juliana Shaw MD Referring Provider Active Start: June 22, 2024 Team Status: Active Member Role Status Dates Dr. Brian Cardona MD Primary Care Provider Active Start: July 25, 2024 Dr. Luca Nayak MD Attending Provider Active Start: July 25, 2024 Dr. Luca Nayak MD Referring Provider Active Start: July 25, 2024 Dr. Luca Nayak MD Other Provider Active Star t: July 25, 2024 Team Status: Inactive Member Role Status Dates Dr. Brian Cardona MD Primary Care Provider Active Start: August 07, 2024 End: August 07, 2024 Dr. Kit Harris MD Attending Provider Active Start: August 07, 2024 End: August 07, 2024 Dr. Kit Harris MD Emergency Provider Active Start: August 07, 2024 End: August 07, 2024 Team Status: Active Member Role Status Dates CARLOS Jauregui Referring Provider Active Star t: August 29, 2024 Dr. Brian Cardona MD Primary Care Provider Active Start: August 29, 2024 Dr. Luca Nayak MD Attending Provider Active Start: August 29, 2024 Team Status: Active Member Role Status Dates CARLOS Jauregui Referring Provider Active Star t: August 29, 2024 Dr. Brian Cardona MD Primary Care Provider Active Start: August 29, 2024 Dr. Luca Nayak MD Attending Provider Active Start: August 29, 2024 Dr. Luca Nayak MD Other Provider Active Star t: August 29, 2024 Team Status: Inactive Member Role Status Dates Dr. Brian Cardona MD Primary Care Provider Active Start: September 16, 2024 End: September 16, 2024 Dr. Brian Cardona MD Referring Provider Active Start: September 16, 2024 End: September 16, 2024 Dr. Edmundo Quevedo MD Attending Provider Active Start: September 16, 2024 End: September 16, 2024 Team Status: Active Member Role/Relationship Status Dates Dr. Brian Cardona MD Primary Care Provider Active Team Status: Active Member Role/Relationship Status Dates Dr. Brian Cardona MD Primary Care Provider Active Start: May 30, 2024 Dr. Luca Nayak MD Attending Provider Active Start: May 30, 2024 Dr. Luca Nayak MD Referring Provider Active Start: May 30, 2024 Dr. Luca Nayak MD Other Provider Active Star t: May 30, 2024 Team Status: Inactive Member Role/Relationship Status Dates Dr. Brian Cardona MD Primary Care Provider Active Start: June 03, 2024 End: June 03, 2024 Dr. Brian Cardona MD Referring Provider Active Start: June 03, 2024 End: June 03, 2024 Dr. Edmundo Quevedo MD Attending Provider Active Start: June 03, 2024 End: June 03, 2024 Team Status: Inactive Member Role/Relationship Status Dates Dr. Brian Cardona MD Primary Care Provider Active Start: June 03, 2024 End: June 03, 2024 Dr. Alex Mancera MD Attending Provider Active S tart: June 03, 2024 End: June 03, 2024 Team Status: Inactive Member Role/Relationship Status Dates Dr. Brian Cardona MD Primary Care Provider Active Start: [...] Active Member Role/Relationship Status Dates Dr. Brian Cardona MD Primary Care Provider Active Start: [...] Active Member Role/Relationship Status Dates Dr. Brian Cardona MD Primary Care Provider Active Start: [...] Active Member Role/Relationship Status Dates Dr. Brian Cardona MD Primary Care Provider Active Start: [...] Active Member Role/Relationship Status Dates Dr. Brian Cardona MD Primary Care Provider Active Start: June 22, 2024 Dr. Alex Mancera MD Attending Provider Active S tart: June 22, 2024 Dr. Juliana Shaw MD Referring Provider Active Start: June 22, 2024 Team Status: Active Member Role/Relationship Status Dates Dr. Brian Cardona MD Primary Care Provider Active Start: June 22, 2024 Dr. Juliana Shaw MD Attending Provider Active Start: June 22, 2024 Dr. Juliana Shaw MD Referring Provider Active Start: June 22, 2024 Team Status: Inactive Member Role/Relationship Status Dates CARLOS Jauregui Referring Provider Active Star t: June 27, 2024 End: June 27, 2024 Dr. Brian Cardona MD Primary Care Provider Active Start: June 27, 2024 End: June 27, 2024 Dr. Luca Nayak MD Attending Provider Active Start: June 27, 2024 End: June 27, 2024 Team Status: Active Member Role/Relationship Status Dates CARLOS Jauregui Referring Provider Active Star t: June 27, 2024 Dr. Brian Cardona MD Primary Care Provider Active Start: June 27, 2024 Dr. Luca Nayak MD Attending Provider Active Start: June 27, 2024 Dr. Luca Nayak MD Other Provider Active Star t: June 27, 2024 Team Status: Inactive Member Role/Relationship Status Dates Dr. Brian Cardona MD Primary Care Provider Active Start: July 11, 2024 End: July 11, 2024 Dr. Brian Cardona MD Attending Provider Active Start: July 11, 2024 End: July 11, 2024 Dr. Brian Cardona MD Referring Provider Active Start: July 11, 2024 End: July 11, 2024 Team Status: Inactive Member Role/Relationship Status Dates CARLOS Jauregui Referring Provider Active Star t: July 25, 2024 End: July 27, 2024 Dr. Brian Cardona MD Primary Care Provider Active Start: July 25, 2024 End: July 27, 2024 Dr. Luca Nayak MD Attending Provider Active Start: July 25, 2024 End: July 27, 2024 Team Status: Active Member Role/Relationship Status Dates Dr. Brian Cardona MD Primary Care Provider Active Start: July 25, 2024 Dr. Luca Nayak MD Attending Provider Active Start: July 25, 2024 Dr. Luca Nayak MD Referring Provider Active Start: July 25, 2024 Dr. Luca Nayak MD Other Provider Active Star t: July 25, 2024 Team Status: Inactive Member Role/Relationship Status Dates Dr. Brian Cardona MD Primary Care Provider Active Start: [...] Active Member Role/Relationship Status Dates Dr. Brian Cardona MD Primary Care Provider Active Start: [...] Active Member Role/Relationship Status Dates Dr. Brian Cardona MD Primary Care Provider Active Start: [...] Active Member Role/Relationship Status Dates Dr. Brian Cardona MD Primary Care Provider Active Start: [...] Inactive Member Role/Relationship Status Dates Dr. Brian Cardona MD Primary Care Provider Active Start: August 02, 2024 End: August 02, 2024 Dr. Hebert Saavedra MD Attending Provider Active Sta rt: August 02, 2024 End: August 02, 2024 Dr. Hebert Saavedra MD Emergency Provider Active Sta rt: August 02, 2024 End: August 02, 2024 Team Status: Inactive Member Role/Relationship Status Dates Dr. Brian Cardona MD Primary Care Provider Active Start: [...] 2024 End: September 26, 2024 Dr. Brian Cardona MD Primary Care Provider Active Start: August 29, 2024 End: September 26, 2024 Dr. Luca Nayak MD Attending Provider Active Start: August 29, 2024 End: September 26, 2024 Team Status: Active Member Role/Relationship Status Dates CARLOS Jauregui Referring Provider Active Star t: August 29, 2024 Dr. Brian Cardona MD Primary Care Provider Active Start: August 29, 2024 Dr. Luca Nayak MD Attending Provider Active Start: August 29, 2024 Dr. Luca Nayak MD Other Provider Active Star t: August 29, 2024 Team Status: Inactive Member Role/Relationship Status Dates Dr. Brian Cardona MD Primary Care Provider Active Start: September 16, 2024 End: September 16, 2024 Dr. Brian Cardona MD Referring Provider Active Start: September 16, 2024 End: September 16, 2024 Dr. Edmundo Quevedo MD Attending Provider Active Start: September 16, 2024 End: September 16, 2024 Team Status: Inactive Member Role/Relationship Status Dates Dr. Brian Cardona MD Primary Care Provider Active Start: [...] Active Member Role/Relationship Status Dates Dr. Brian Cardona MD Primary Care Provider Active Start: [...] Active Member Role/Relationship Status Dates Dr. Brian Cardona MD Primary Care Provider Active Start: [...] Active Member Role/Relationship Status Dates Dr. Brian Cardona MD Primary Care Provider Active Start: [...] Active Member Role/Relationship Status Dates Dr. Brian Cardona MD Primary Care Provider Active Start: June 22, 2024 Dr. Alex Mancera MD Attending Provider Active S tart: June 22, 2024 Dr. Juliana Shaw MD Referring Provider Active Start: June 22, 2024 Team Status: Active Member Role/Relationship Status Dates Dr. Brian Cardona MD Primary Care Provider Active Start: June 22, 2024 Dr. Juliana Shaw MD Attending Provider Active Start: June 22, 2024 Dr. Juliana Shaw MD Referring Provider Active Start: June 22, 2024 Team Status: Inactive Member Role/Relationship Status Dates CARLOS Jauregui Referring Provider Active Star t: June 27, 2024 End: June 27, 2024 Dr. Brian Cardona MD Primary Care Provider Active Start: June 27, 2024 End: June 27, 2024 Dr. Luca Nayak MD Attending Provider Active Start: June 27, 2024 End: June 27, 2024 Team Status: Active Member Role/Relationship Status Dates CARLOS Jauregui Referring Provider Active Star t: June 27, 2024 Dr. Brian Cardona MD Primary Care Provider Active Start: June 27, 2024 Dr. Luca Nayak MD Attending Provider Active Start: June 27, 2024 Dr. Luca Nayak MD Other Provider Active Star t: June 27, 2024 Team Status: Inactive Member Role/Relationship Status Dates Dr. Brian Cardona MD Primary Care Provider Active Start: July 11, 2024 End: July 11, 2024 Dr. Brian Cardona MD Attending Provider Active Start: July 11, 2024 End: July 11, 2024 Dr. Brian Cardona MD Referring Provider Active Start: July 11, 2024 End: July 11, 2024 Team Status: Inactive Member Role/Relationship Status Dates CARLOS Jauregui Referring Provider Active Star t: July 25, 2024 End: July 27, 2024 Dr. Brian Cardona MD Primary Care Provider Active Start: July 25, 2024 End: July 27, 2024 Dr. Luca Nayak MD Attending Provider Active Start: July 25, 2024 End: July 27, 2024 Team Status: Active Member Role/Relationship Status Dates Dr. Brian Cardona MD Primary Care Provider Active Start: July 25, 2024 Dr. Luca Nayak MD Attending Provider Active Start: July 25, 2024 Dr. Luca Nayak MD Referring Provider Active Start: July 25, 2024 Dr. Luca Nayak MD Other Provider Active Star t: July 25, 2024 Team Status: Inactive Member Role/Relationship Status Dates Dr. Brian Cardona MD Primary Care Provider Active Start: [...] Active Member Role/Relationship Status Dates Dr. Brian Cardona MD Primary Care Provider Active Start: [...] Active Member Role/Relationship Status Dates Dr. Brian Cardona MD Primary Care Provider Active Start: [...] Active Member Role/Relationship Status Dates Dr. Brian Cardona MD Primary Care Provider Active Start: [...] Inactive Member Role/Relationship Status Dates Dr. Brian Cardona MD Primary Care Provider Active Start: August 02, 2024 End: August 02, 2024 Dr. Hebert Saavedra MD Attending Provider Active Sta rt: August 02, 2024 End: August 02, 2024 Dr. Hebert Saavedra MD Emergency Provider Active Sta rt: August 02, 2024 End: August 02, 2024 Team Status: Inactive Member Role/Relationship Status Dates Dr. Brian Cardona MD Primary Care Provider Active Start: [...] 2024 End: September 26, 2024 Dr. Brian Cardona MD Primary Care Provider Active Start: August 29, 2024 End: September 26, 2024 Dr. Luca Nayak MD Attending Provider Active Start: August 29, 2024 End: September 26, 2024 Team Status: Active Member Role/Relationship Status Dates CARLOS Jauregui Referring Provider Active Star t: August 29, 2024 Dr. Brian Cardona MD Primary Care Provider Active Start: August 29, 2024 Dr. Luca Nayak MD Attending Provider Active Start: August 29, 2024 Dr. Luca Nayak MD Other Provider Active Star t: August 29, 2024 Team Status: Inactive Member Role/Relationship Status Dates Dr. Brian Cardona MD Primary Care Provider Active Start: September 16, 2024 End: September 16, 2024 Dr. Brian Cardona MD Referring Provider Active Start: September 16, 2024 End: September 16, 2024 Dr. Edmundo Quevedo MD Attending Provider Active Start: September 16, 2024 End: September 16, 2024 Team Status: Inactive Member Role/Relationship Status Dates Dr. Brian Cardona MD Primary Care Provider Active Start: September 28, 2024 End: September 28, 2024 RIKKI CASAS MD Attending Provider Active St art: September 28, 2024 End: September 28, 2024 RIKKI CASAS MD Referring Provider Active St art: September 28, 2024 End: September 28, 2024 Team Status: Active Member Role/Relationship Status Dates CARLOS Jauregui Referring Provider Active Star t: October 03, 2024 Dr. Brian Cardona MD Primary Care Provider Active Start: October 03, 2024 Dr. Luca Nayak MD Attending Provider Active Start: October 03, 2024 Team Status: Active Member Role/Relationship Status Dates Dr. Brian Cardona MD Primary Care Provider Active Start: June 22, 2024 Dr. Alex Mancera MD Attending Provider Active S tart: June 22, 2024 Dr. Juliana Shaw MD Referring Provider Active Start: June 22, 2024 Team Status: Active Member Role/Relationship Status Dates Dr. Brian Cardona MD Primary Care Provider Active Start: June 22, 2024 Dr. Juliana Shaw MD Attending Provider Active Start: June 22, 2024 Dr. Juliana Shaw MD Referring Provider Active Start: June 22, 2024 Team Status: Inactive Member Role/Relationship Status Dates CARLOS Jauregui Referring Provider Active Star t: June 27, 2024 End: June 27, 2024 Dr. Brian Cardona MD Primary Care Provider Active Start: June 27, 2024 End: June 27, 2024 Dr. Luca Nayak MD Attending Provider Active Start: June 27, 2024 End: June 27, 2024 Team Status: Active Member Role/Relationship Status Dates CARLOS Jauregui Referring Provider Active Star t: June 27, 2024 Dr. Brian Cardona MD Primary Care Provider Active Start: June 27, 2024 Dr. Luca Nayak MD Attending Provider Active Start: June 27, 2024 Dr. Luca Nayak MD Other Provider Active Star t: June 27, 2024 Team Status: Inactive Member Role/Relationship Status Dates Dr. Brian Cardona MD Primary Care Provider Active Start: July 11, 2024 End: July 11, 2024 Dr. Brian Cardona MD Attending Provider Active Start: July 11, 2024 End: July 11, 2024 Dr. Brian Cardona MD Referring Provider Active Start: July 11, 2024 End: July 11, 2024 Team Status: Inactive Member Role/Relationship Status Dates CARLOS Jauregui Referring Provider Active Star t: July 25, 2024 End: July 27, 2024 Dr. Brian Cardona MD Primary Care Provider Active Start: July 25, 2024 End: July 27, 2024 Dr. Luca Nayak MD Attending Provider Active Start: July 25, 2024 End: July 27, 2024 Team Status: Active Member Role/Relationship Status Dates Dr. Brian Cardona MD Primary Care Provider Active Start: July 25, 2024 Dr. Luca Nayak MD Attending Provider Active Start: July 25, 2024 Dr. Luca Nayak MD Referring Provider Active Start: July 25, 2024 Dr. Luca Nayak MD Other Provider Active Star t: July 25, 2024 Team Status: Inactive Member Role/Relationship Status Dates Dr. Brian Cardona MD Primary Care Provider Active Start: [...] Active Member Role/Relationship Status Dates Dr. Brian Cardona MD Primary Care Provider Active Start: [...] Active Member Role/Relationship Status Dates Dr. Brian Cardona MD Primary Care Provider Active Start: [...] Active Member Role/Relationship Status Dates Dr. Brian Cardona MD Primary Care Provider Active Start: [...] Inactive Member Role/Relationship Status Dates Dr. Brian Cardona MD Primary Care Provider Active Start: August 02, 2024 End: August 02, 2024 Dr. Hebert Saavedra MD Attending Provider Active Sta rt: August 02, 2024 End: August 02, 2024 Dr. Hebert Saavedra MD Emergency Provider Active Sta rt: August 02, 2024 End: August 02, 2024 Team Status: Inactive Member Role/Relationship Status Dates Dr. Brian Cardona MD Primary Care Provider Active Start: [...] 2024 End: September 26, 2024 Dr. Brian Cardona MD Primary Care Provider Active Start: August 29, 2024 End: September 26, 2024 Dr. Luca Nayak MD Attending Provider Active Start: August 29, 2024 End: September 26, 2024 Team Status: Active Member Role/Relationship Status Dates CARLOS Jauregui Referring Provider Active Star t: August 29, 2024 Dr. Brian Cardona MD Primary Care Provider Active Start: August 29, 2024 Dr. Luca Nayak MD Attending Provider Active Start: August 29, 2024 Dr. Luca Nayak MD Other Provider Active Star t: August 29, 2024 Team Status: Inactive Member Role/Relationship Status Dates Dr. Brian Cardona MD Primary Care Provider Active Start: September 16, 2024 End: September 16, 2024 Dr. Brian Cardona MD Referring Provider Active Start: September 16, 2024 End: September 16, 2024 Dr. Edmundo Quevedo MD Attending Provider Active Start: September 16, 2024 End: September 16, 2024 Team Status: Inactive Member Role/Relationship Status Dates Dr. Brian Cardona MD Primary Care Provider Active Start: September 28, 2024 End: September 28, 2024 RIKKI CASAS MD Attending Provider Active St art: September 28, 2024 End: September 28, 2024 RIKKI CASAS MD Referring Provider Active St art: September 28, 2024 End: September 28, 2024 Team Status: Active Member Role/Relationship Status Dates CARLOS Jauregui Referring Provider Active Star t: October 03, 2024 Dr. Brian Cardona MD Primary Care Provider Active Start: October 03, 2024 Dr. Luca Nayak MD Attending Provider Active Start: October 03, 2024 Team Status: Active Member Role/Relationship Status Dates CARLOS Jauregui Referring Provider Active Star t: October 04, 2024 Dr. Brian Cardona MD Primary Care Provider Active Start: October 04, 2024 Dr. Luca Nayak MD Attending Provider Active Start: October 04, 2024 Dr. Luca Nayak MD Other Provider Active Star t: October 04, 2024 Team Status: Inactive Member Role/Relationship Status Dates Dr. Brian Cardona MD Primary Care Provider Active Start: October 14, 2024 End: October 14, 2024 Dr. Edmundo Quevedo MD Attending Provider Active Start: October 14, 2024 End: October 14, 2024 Dr. Edmundo Quevedo MD Referring Provider Active Start: October 14, 2024 End: October 14, 2024 Team Status: Inactive Member Role/Relationship Status Dates Dr. Brian Cardona MD Primary Care Provider Active Start: July 11, 2024 End: July 11, 2024 Dr. Brian Cardona MD Attending Provider Active Start: July 11, 2024 End: July 11, 2024 Dr. Brian Cardona MD Referring Provider Active Start: July 11, 2024 End: July 11, 2024 Team Status: Inactive Member Role/Relationship Status Dates CARLOS Jauregui Referring Provider Active Star t: July 25, 2024 End: July 27, 2024 Dr. Brian Cardona MD Primary Care Provider Active Start: July 25, 2024 End: July 27, 2024 Dr. Luca Nayak MD Attending Provider Active Start: July 25, 2024 End: July 27, 2024 Team Status: Active Member Role/Relationship Status Dates Dr. Brian Cardona MD Primary Care Provider Active Start: July 25, 2024 Dr. Luca Nayak MD Attending Provider Active Start: July 25, 2024 Dr. Luca Nayak MD Referring Provider Active Start: July 25, 2024 Dr. Luca Nayak MD Other Provider Active Star t: July 25, 2024 Team Status: Inactive Member Role/Relationship Status Dates Dr. Brian Cardona MD Primary Care Provider Active Start: [...] Active Member Role/Relationship Status Dates Dr. Brian Cardona MD Primary Care Provider Active Start: [...] Active Member Role/Relationship Status Dates Dr. Brian Cardona MD Primary Care Provider Active Start: [...] Active Member Role/Relationship Status Dates Dr. Brian Cardona MD Primary Care Provider Active Start: August 01, 2024 Dr. Andre Ferreira DO Emergency Provider Active Start: August 01, 2024 Dr. Isha Zuirta MD Admit Provider Active St art: August 01, 2024 Dr. Isha Zurita MD Attending Provider Active Start: August 01, 2024 Dr. Isha Zurita MD Other Provider Active St art: August 01, 2024 Dr. Miller Blank MD Other Provider Active Star t: August 01, 2024 Team Status: Inactive Member Role/Relationship Status Dates Dr. Brian Cardona MD Primary Care Provider Active Start: August 02, 2024 End: August 02, 2024 Dr. Hebert Saavedra MD Attending Provider Active Sta rt: August 02, 2024 End: August 02, 2024 Dr. Hebert Saavedra MD Emergency Provider Active Sta rt: August 02, 2024 End: August 02, 2024 Team Status: Inactive Member Role/Relationship Status Dates Dr. Brian Cardona MD Primary Care Provider Active Start: [...] 2024 End: September 26, 2024 Dr. Brian Cardona MD Primary Care Provider Active Start: August 29, 2024 End: September 26, 2024 Dr. Luca Nayak MD Attending Provider Active Start: August 29, 2024 End: September 26, 2024 Team Status: Active Member Role/Relationship Status Dates CARLOS Jauregui Referring Provider Active Star t: August 29, 2024 Dr. Brian Cardona MD Primary Care Provider Active Start: August 29, 2024 Dr. Luca Nyaak MD Attending Provider Active Start: August 29, 2024 Dr. Luca Nayak MD Other Provider Active Star t: August 29, 2024 Team Status: Inactive Member Role/Relationship Status Dates Dr. Brian Cardona MD Primary Care Provider Active Start: September 16, 2024 End: September 16, 2024 Dr. Brian Cardona MD Referring Provider Active Start: September 16, 2024 End: September 16, 2024 Dr. Edmundo Quevedo MD Attending Provider Active Start: September 16, 2024 End: September 16, 2024 Team Status: Inactive Member Role/Relationship Status Dates Dr. Brian Cardona MD Primary Care Provider Active Start: September 28, 2024 End: September 28, 2024 RIKKI CASAS MD Attending Provider Active St art: September 28, 2024 End: September 28, 2024 RIKKI CASAS MD Referring Provider Active St art: September 28, 2024 End: September 28, 2024 Team Status: Inactive Member Role/Relationship Status Dates CARLOS Jauregui Referring Provider Active Star t: October 03, 2024 End: October 27, 2024 Dr. Brian Cardona MD Primary Care Provider Active Start: October 03, 2024 End: October 27, 2024 Dr. Luca Nayak MD Attending Provider Active Start: October 03, 2024 End: October 27, 2024 Team Status: Active Member Role/Relationship Status Dates CARLOS Jauregui Referring Provider Active Star t: October 04, 2024 Dr. Brian Cardona MD Primary Care Provider Active Start: October 04, 2024 Dr. Luca Nayak MD Attending Provider Active Start: October 04, 2024 Dr. Luca Nayak MD Other Provider Active Star t: October 04, 2024 Team Status: Inactive Member Role/Relationship Status Dates Dr. Brian Cardona MD Primary Care Provider Active Start: October 14, 2024 End: October 14, 2024 Dr. Edmundo Quevedo MD Attending Provider Active Start: October 14, 2024 End: October 14, 2024 Dr. Edmundo Quevedo MD Referring Provider Active Start: October 14, 2024 End: October 14, 2024 Team Status: Inactive Member Role/Relationship Status Dates Dr. Brian Cardona MD Primary Care Provider Active Start: October 31, 2024 End: October 31, 2024 Dr. Brian Cardona MD Referring Provider Active Start: October 31, 2024 End: October 31, 2024 CARLOS Gonzalez Attending Provider Active Star t: October 31, 2024 End: October 31, 2024 Team Status: Inactive Member Role/Relationship Status Dates CARLOS Jauregui Referring Provider Active Star t: July 25, 2024 End: July 27, 2024 Dr. Brian Cardona MD Primary Care Provider Active Start: July 25, 2024 End: July 27, 2024 Dr. Luca Nayak MD Attending Provider Active Start: July 25, 2024 End: July 27, 2024 Team Status: Active Member Role/Relationship Status Dates Dr. Brian Cardona MD Primary Care Provider Active Start: July 25, 2024 Dr. Luca Nayak MD Attending Provider Active Start: July 25, 2024 Dr. Luca Nayak MD Referring Provider Active Start: July 25, 2024 Dr. Luca Nayak MD Other Provider Active Star t: July 25, 2024 Team Status: Inactive Member Role/Relationship Status Dates Dr. Brian Cardona MD Primary Care Provider Active Start: [...] Active Member Role/Relationship Status Dates Dr. Brian Cardona MD Primary Care Provider Active Start: [...] Active Member Role/Relationship Status Dates Dr. Brian Cardona MD Primary Care Provider Active Start: [...] Active Member Role/Relationship Status Dates Dr. Brian Cardona MD Primary Care Provider Active Start: [...] Inactive Member Role/Relationship Status Dates Dr. Brian Cardona MD Primary Care Provider Active Start: August 02, 2024 End: August 02, 2024 Dr. Hebert Saavedra MD Attending Provider Active Sta rt: August 02, 2024 End: August 02, 2024 Dr. Hebert Saavedra MD Emergency Provider Active Sta rt: August 02, 2024 End: August 02, 2024 Team Status: Inactive Member Role/Relationship Status Dates Dr. Brian Cardona MD Primary Care Provider Active Start: [...] 2024 End: September 26, 2024 Dr. Brian Cardona MD Primary Care Provider Active Start: August 29, 2024 End: September 26, 2024 Dr. Luca Nayak MD Attending Provider Active Start: August 29, 2024 End: September 26, 2024 Team Status: Active Member Role/Relationship Status Dates CARLOS Jauregui Referring Provider Active Star t: August 29, 2024 Dr. Brian Cardona MD Primary Care Provider Active Start: August 29, 2024 Dr. Luca Nayak MD Attending Provider Active Start: August 29, 2024 Dr. Luca Nayak MD Other Provider Active Star t: August 29, 2024 Team Status: Inactive Member Role/Relationship Status Dates Dr. Brian Cardona MD Primary Care Provider Active Start: September 16, 2024 End: September 16, 2024 Dr. Brian Cardona MD Referring Provider Active Start: September 16, 2024 End: September 16, 2024 Dr. Edmundo Quevedo MD Attending Provider Active Start: September 16, 2024 End: September 16, 2024 Team Status: Inactive Member Role/Relationship Status Dates Dr. Brian Cardona MD Primary Care Provider Active Start: September 28, 2024 End: September 28, 2024 RIKKI CASAS MD Attending Provider Active St art: September 28, 2024 End: September 28, 2024 RIKKI CASAS MD Referring Provider Active St art: September 28, 2024 End: September 28, 2024 Team Status: Active Member Role/Relationship Status Dates Dr. Brian Cardona MD Primary Care Provider Active Start: October 03, 2024 Dr. Luca Nayak MD Attending Provider Active Start: October 03, 2024 Dr. Luca Nayak MD Referring Provider Active Start: October 03, 2024 Dr. Luca Nayak MD Other Provider Active Star t: October 03, 2024 Team Status: Inactive Member Role/Relationship Status Dates Dr. Brian Cardona MD Primary Care Provider Active Start: October 14, 2024 End: October 14, 2024 Dr. Edmundo Quevedo MD Attending Provider Active Start: October 14, 2024 End: October 14, 2024 Dr. Edmundo Quevedo MD Referring Provider Active Start: October 14, 2024 End: October 14, 2024 Team Status: Inactive Member Role/Relationship Status Dates Dr. Brian Cardona MD Primary Care Provider Active Start: October 31, 2024 End: October 31, 2024 Dr. Brian Cardona MD Referring Provider Active Start: October 31, 2024 End: October 31, 2024 CARLOS Gonzalez Attending Provider Active Star t: October 31, 2024 End: October 31, 2024 Team Status: Active Member Role/Relationship Status Dates CARLOS Jauregui Referring Provider Active Star t: November 14, 2024 Dr. Brian Cardona MD Primary Care Provider Active Start: November 14, 2024 Dr. Luca Nayak MD Attending Provider Active Start: November 14, 2024 Team Status: Active Member Role/Relationship Status Dates CARLOS Jauregui Referring Provider Active Star t: November 14, 2024 Dr. Brian Cardona MD Primary Care Provider Active Start: November 14, 2024 Dr. Luca Nayak MD Attending Provider Active Start: November 14, 2024 Dr. Luca Nayak MD Other Provider Active Star t: November 14, 2024 Team Status: Inactive Member Role/Relationship Status Dates Dr. Brian Cardona MD Primary Care Provider Active Start: [...] Active Member Role/Relationship Status Dates Dr. Brian Cardona MD Primary Care Provider Active Start: [...] Active Member Role/Relationship Status Dates Dr. Brian Cardona MD Primary Care Provider Active Start: [...] Inactive Member Role/Relationship Status Dates Dr. Brian Cardona MD Primary Care Provider Active Start: August 02, 2024 End: August 02, 2024 Dr. Hebert Saavedra MD Attending Provider Active Sta rt: August 02, 2024 End: August 02, 2024 Dr. Hebert Saavedra MD Emergency Provider Active Sta rt: August 02, 2024 End: August 02, 2024 Team Status: Inactive Member Role/Relationship Status Dates Dr. Brian Cardona MD Primary Care Provider Active Start: [...] 2024 End: September 26, 2024 Dr. Brian Cardona MD Primary Care Provider Active Start: August 29, 2024 End: September 26, 2024 Dr. Luca Nayak MD Attending Provider Active Start: August 29, 2024 End: September 26, 2024 Team Status: Active Member Role/Relationship Status Dates CARLOS Jauregui Referring Provider Active Star t: August 29, 2024 Dr. Brian Cardona MD Primary Care Provider Active Start: August 29, 2024 Dr. Luca Nayak MD Attending Provider Active Start: August 29, 2024 Dr. Luca Nayak MD Other Provider Active Star t: August 29, 2024 Team Status: Inactive Member Role/Relationship Status Dates Dr. Brian Cardona MD Primary Care Provider Active Start: September 16, 2024 End: September 16, 2024 Dr. Brian Cardona MD Referring Provider Active Start: September 16, 2024 End: September 16, 2024 Dr. Edmundo Quevedo MD Attending Provider Active Start: September 16, 2024 End: September 16, 2024 Team Status: Inactive Member Role/Relationship Status Dates Dr. Brian Cardona MD Primary Care Provider Active Start: September 28, 2024 End: September 28, 2024 RIKKI CASAS MD Attending Provider Active St art: September 28, 2024 End: September 28, 2024 RIKKI CASAS MD Referring Provider Active St art: September 28, 2024 End: September 28, 2024 Team Status: Active Member Role/Relationship Status Dates Dr. Brian Cardona MD Primary Care Provider Active Start: October 03, 2024 Dr. Luca Nayak MD Attending Provider Active Start: October 03, 2024 Dr. Luca Nayak MD Referring Provider Active Start: October 03, 2024 Dr. Luca Nayak MD Other Provider Active Star t: October 03, 2024 Team Status: Inactive Member Role/Relationship Status Dates CARLOS Jauregui Referring Provider Active Star t: October 03, 2024 End: October 27, 2024 Dr. Brian Cardona MD Primary Care Provider Active Start: October 03, 2024 End: October 27, 2024 Dr. Lcua Nayak MD Attending Provider Active Start: October 03, 2024 End: October 27, 2024 Team Status: Inactive Member Role/Relationship Status Dates Dr. Brian Cardona MD Primary Care Provider Active Start: October 14, 2024 End: October 14, 2024 Dr. Edmundo Quevedo MD Attending Provider Active Start: October 14, 2024 End: October 14, 2024 Dr. Edmundo Quevedo MD Referring Provider Active Start: October 14, 2024 End: October 14, 2024 Team Status: Inactive Member Role/Relationship Status Dates Dr. Brian Cardona MD Primary Care Provider Active Start: October 31, 2024 End: October 31, 2024 Dr. Brian Cardona MD Referring Provider Active Start: October 31, 2024 End: October 31, 2024 CARLOS Gonzalez Attending Provider Active Star t: October 31, 2024 End: October 31, 2024 Team Status: Inactive Member Role/Relationship Status Dates CARLOS Jauregui Referring Provider Active Star t: November 14, 2024 End: November 27, 2024 Dr. Brian Cardona MD Primary Care Provider Active Start: November 14, 2024 End: November 27, 2024 Dr. Luca Nayak MD Attending Provider Active Start: November 14, 2024 End: November 27, 2024 Team Status: Active Member Role/Relationship Status Dates CARLOS Jauregui Referring Provider Active Star t: November 14, 2024 Dr. Brian Cardona MD Primary Care Provider Active Start: November 14, 2024 Dr. Luca Nayak MD Attending Provider Active Start: November 14, 2024 Dr. Luca Nayak MD Other Provider Active Star t: November 14, 2024 Team Status: Active Member Role/Relationship Status Dates Dr. Brian Cardona MD Primary care physician Active Team Status: Inactive Member Role/Relationship Status Dates Dr. Brian Cardona MD Primary care physician Active Start: September 16, 2024 End: September 16, 2024 Dr. Brian Cardona MD Referring Provider Active Start: September 16, 2024 End: September 16, 2024 Dr. Edmundo Quevedo MD Attending physician Active Start: September 16, 2024 End: September 16, 2024 Team Status: Inactive Member Role/Relationship Status Dates Dr. Brian Cardona MD Primary care physician Active Start: September 28, 2024 End: September 28, 2024 RIKKI CASAS MD Attending physician Active S tart: September 28, 2024 End: September 28, 2024 RIKKI CASAS MD Referring Provider Active St art: September 28, 2024 End: September 28, 2024 Team Status: Active Member Role/Relationship Status Dates Dr. Brian Cardona MD Primary care physician Active Start: October 03, 2024 Dr. Luca Nayak MD Attending physician Active Start: October 03, 2024 Dr. Luca Nayak MD Referring Provider Active Start: October 03, 2024 Dr. Luca Nayak MD Nurse Practitioner Active Start: October 03, 2024 Team Status: Inactive Member Role/Relationship Status Dates CARLOS Jauregui Referring Provider Active Star t: October 03, 2024 End: October 27, 2024 Dr. Brian Cardona MD Primary care physician Active Start: October 03, 2024 End: October 27, 2024 Dr. Luca Nayak MD Attending physician Active Start: October 03, 2024 End: October 27, 2024 Team Status: Inactive Member Role/Relationship Status Dates Dr. Brian Cardona MD Primary care physician Active Start: October 14, 2024 End: October 14, 2024 Dr. Edmundo Quevedo MD Attending physician Active Start: October 14, 2024 End: October 14, 2024 Dr. Edmundo Quevedo MD Referring Provider Active Start: October 14, 2024 End: October 14, 2024 Team Status: Inactive Member Role/Relationship Status Dates Dr. Brian Cardona MD Primary care physician Active Start: October 31, 2024 End: October 31, 2024 Dr. Brian Cardona MD Referring Provider Active Start: October 31, 2024 End: October 31, 2024 CARLOS Gonzalez Attending physician Active Sta rt: October 31, 2024 End: October 31, 2024 Team Status: Inactive Member Role/Relationship Status Dates CARLOS Jauregui Referring Provider Active Star t: November 14, 2024 End: November 27, 2024 Dr. Brian Cardona MD Primary care physician Active Start: November 14, 2024 End: November 27, 2024 Dr. Luca Nayak MD Attending physician Active Start: November 14, 2024 End: November 27, 2024 Team Status: Active Member Role/Relationship Status Dates Dr. Brian Cardona MD Primary care physician Active Start: November 14, 2024 Dr. Luca Nayak MD Attending physician Active Start: November 14, 2024 Dr. Luca Nayak MD Referring Provider Active Start: November 14, 2024 Dr. Luca Nayak MD Nurse Practitioner Active Start: November 14, 2024 Team Status: Inactive Member Role/Relationship Status Dates CARLOS Jauregui Referring Provider Active Star t: December 26, 2024 End: December 27, 2024 Dr. Brian Cardona MD Primary care physician Active Start: December 26, 2024 End: December 27, 2024 Dr. Luca Nayak MD Attending physician Active Start: December 26, 2024 End: December 27, 2024 Team Status: Active Member Role/Relationship Status Dates CARLOS Jauregui Referring Provider Active Star t: December 28, 2024 Dr. Brian Cardona MD Primary care physician Active Start: December 28, 2024 Dr. Luca Nayak MD Attending physician Active Start: December 28, 2024 Dr. Luca Nayak MD Nurse Practitioner Active Start: December 28, 2024 Team Status: Inactive Member Role/Relationship Status Dates Dr. Brian Cardona MD Primary care physician Active Start: October 14, 2024 End: October 14, 2024 Dr. Edmundo Quevedo MD Attending physician Active Start: October 14, 2024 End: October 14, 2024 Dr. Edmundo Quevedo MD Referring Provider Active Start: October 14, 2024 End: October 14, 2024 Team Status: Inactive Member Role/Relationship Status Dates Dr. Brian Cardona MD Primary care physician Active Start: October 31, 2024 End: October 31, 2024 Dr. Brian Cardona MD Referring Provider Active Start: October 31, 2024 End: October 31, 2024 CARLOS Gonzalez Attending physician Active Sta rt: October 31, 2024 End: October 31, 2024 Team Status: Inactive Member Role/Relationship Status Dates CARLOS Jauregui Referring Provider Active Star t: November 14, 2024 End: November 27, 2024 Dr. Brian Cardona MD Primary care physician Active Start: November 14, 2024 End: November 27, 2024 Dr. Luca Nayak MD Attending physician Active Start: November 14, 2024 End: November 27, 2024 Team Status: Active Member Role/Relationship Status Dates Dr. Brian Cardona MD Primary care physician Active Start: November 14, 2024 Dr. Luca Nayak MD Attending physician Active Start: November 14, 2024 Dr. Luca Nayak MD Referring Provider Active Start: November 14, 2024 Dr. Luca Nayak MD Nurse Practitioner Active Start: November 14, 2024 Team Status: Inactive Member Role/Relationship Status Dates CARLOS Jauregui Referring Provider Active Star t: December 26, 2024 End: December 27, 2024 Dr. Brian Cardona MD Primary care physician Active Start: December 26, 2024 End: December 27, 2024 Dr. Luca Nayak MD Attending physician Active Start: December 26, 2024 End: December 27, 2024 Team Status: Active Member Role/Relationship Status Dates CARLOS Jauregui Referring Provider Active Star t: December 28, 2024 Dr. Brian Cardona MD Primary care physician Active Start: December 28, 2024 Dr. Luca Nayak MD Attending physician Active Start: December 28, 2024 Dr. Luca Nayak MD Nurse Practitioner Active Start: December 28, 2024 Team Status: Inactive Member Role/Relationship Status Dates Dr. Brian Cardona MD Primary care physician Active Start: January 04, 2025 End: January 04, 2025 Brian LORENZANA Attending physician Active S tart: January 04, 2025 End: January 04, 2025 Team Status: Inactive Member Role/Relationship Status Dates Dr. Brian Cardona MD Primary care physician Active Start: January 17, 2025 End: January 20, 2025 Dr. Hebert Saavedra MD Emergency Department Physician Active Start: January 17, 2025 End: January 20, 2025 Dr. Basilio Dill DO Admitting physician Active Start: January 17, 2025 End: January 20, 2025 Dr. Basilio Dill DO Attending physician Active Start: January 17, 2025 End: January 20, 2025 MARIO Chavez Nurse Practitioner Active Start: January 17, 2025 End: January 20, 2025 Team Status: Active Member Role/Relationship Status Dates Dr. Brian Cardona MD Primary care physician Active Start: January 17, 2025 Dr. Hebert Saavedra MD Emergency Department Physician Active Start: January 17, 2025 Dr. Basilio Dill DO Admitting physician Active Start: January 17, 2025 Dr. Basilio Dill DO Attending physician Active Start: January 17, 2025 Dr. Basilio Dill DO Nurse Practitioner Active Start: January 17, 2025 Team Status: Active Member Role/Relationship Status Dates Dr. Brian Cardona MD Primary care physician Active Start: January 18, 2025 Dr. Hebert Saavedra MD Emergency Department Physician Active Start: January 18, 2025 Dr. Basilio Dill DO Admitting physician Active Start: January 18, 2025 Dr. Basilio Dill DO Attending physician Active Start: January 18, 2025 Dr. Basilio Dill DO Nurse Practitioner Active Start: January 18, 2025 Team Status: Active Member Role/Relationship Status Dates Dr. Brian Cardona MD Primary care physician Active Start: January 19, 2025 Dr. Hebert Saavedra MD Emergency Department Physician Active Start: January 19, 2025 Dr. Basilio Dill DO Admitting physician Active Start: January 19, 2025 Dr. Basilio Dill DO Nurse Practitioner Active Start: January 19, 2025 Susan Melton NP-C Attending physician Active Start: January 19, 2025 Susan Melton [employer]-C Nurse Practitioner Active Start: January 19, 2025 Team Status: Active Member Role/Relationship Status Dates Dr. Brian Cardona MD Primary care physician Active Start: January 19, 2025 Dr. Hebert Saavedra MD Emergency Department Physician Active Start: January 19, 2025 Dr. Basilio Dill DO Admitting physician Active Start: January 19, 2025 Dr. Basilio Dill DO Attending physician Active Start: January 19, 2025 Dr. Basilio Dill DO Nurse Practitioner Active Start: January 19, 2025 Susan Melton [employer] MANAGER-C Nurse Practitioner Active Start: January 19, 2025 Team Status: Active Member Role/Relationship Status Dates Dr. Brian Cardona MD Primary care physician Active Start: January 20, 2025 Dr. Hebert Saavedra MD Emergency Department Physician Active Start: January 20, 2025 Dr. Basilio Dill DO Admitting physician Active Start: January 20, 2025 Dr. Basilio Dill DO Attending physician Active Start: January 20, 2025 Dr. Basilio Dill , DO Nurse Practitioner Active Start: January 20, 2025 MARIO Chavez Nurse Practitioner Active Start: January 20, 2025 Reason for Visit (unrecogniz ed section and content) Reason Onset Date Comments returning call 03/06/2023 Reason Onset Date Comments Other 06/14/2023 Specialty Diagnoses / Procedures Referred By Contac t Referred To Contact Diagnoses Urinary incontinence Urinary incontinence Procedures PA CYSTOURETHROSCOPY PA CYSTOSTOMY CYSTOTOMY W/DRAINAGE CYSTOSCOPY possible trocar suprapubic cystostomy Rikki Casas MD [address] [place] [address] [facility] [address] [facility] [address] [place] [address] Referral ID Status Reason Start Date Expiration Date Visits Re quested Visits Authorized [id number] 1 1 Reason Onset Date Comments Urinary Catheter Problem 12/18/2023 Reason Comments Urinary Retention SPT placement 4, Pt states they went to ED twice since then having SPT changed Reason Onset Date Comments Other 01/25/2024 Reason Onset Date Comments Orders 03/31/2024 Reason Onset Date Comments Results 07/29/2024 Reason Onset Date Comments Urinary Symptom 09/27/2024 Reason Onset Date Comments Advice Only 09/26/2024 FOR RECORDS PERTAINING TO PATIENTS WHO ARE [...] BE BASED ON THE PRIMARY CLINICAL RECORDS. [employer] provides no warranty or guarantee of the accuracy or completeness of information in this document.
--- NOTE | 2025-03-16 20:34 | EX.ED.CRITCA ---
HPI History of Present Illness Chief Complaint: Shortness of Breath Detail of Chief Complaint: Unresponsive and hypoxia Informant: spouse/S.O., family and EMS Onset/Context/Timing Onset: Yesterday (Was not his normal self yesterday. Unresponsive this evening) Context: Gradual Onset Timing: Continuous Quality: Unresponsive Location: Suspect respiratory failure with hypoxia and hypercapnia Current Severity: Severe Maximum Severity: Severe Worsened by: Unable to determine Relieved by: Nothing Narrative Narrative: Patient is a 69-year-old male. Patient was admitted Thursday before and discharged on February 28. Dr. Vanessa Dorado's discharge summary was reviewed. Patient had acute on chronic respiratory failure with hypoxemia and hypercapnia. He also had a urinary tract infection, pressure ulcer right buttocks that was stage III. He presented because of altered mental status. He has a chronic indwelling suprapubic catheter as well as a diverting ostomy for wound purposes. Family inform me that he has history of recent PE, pneumonia and COPD. He does not have a history of heart failure. He was found to have a PE during his most recent hospitalization. Patient arrived unresponsive. [facility] is Prior similar symptoms: Yes Recent Illness/Hospitalization: Yes PFSH [facility] Medical History Pulmonary embolism Diabetes Scoliosis Fusion of spine, cervical region Thoracic myelopathy Cervical myelopathy Colostomy in place Wheelchair dependent Paraplegic spinal paralysis History of pressure ulcer Constipation Other acute postprocedural pain Wears glasses Thyroid disease Arthritis Uses wheelchair High cholesterol Gastric reflux COPD (chronic obstructive pulmonary disease) Hx of fracture of arm Hx of head injury Bedridden Smoker Right ischial pressure sore, stage 4 Urinary tract infection Spinal cord injury Tobacco abuse Hypothyroidism Hyperlipidemia COPD (chronic obstructive pulmonary disease) Home Medications ?Medication ?Instructions ?Recorded ?Last Taken ?Type levothyroxine 125 mcg tablet 125 mcg PO DAILY THYROID 12/17/17 02/22/25 History tamsulosin 0.4 mg capsule 0.4 mg PO BID PROSTATE 12/17/17 02/22/25 History icosapent ethyl 1 gram capsule 2 g PO BIDCM cholesterol 02/08/22 02/22/25 History (Vascepa) omeprazole 40 mg capsule,delayed 40 mg PO DAILY reflux 08/02/24 02/22/25 History release baclofen 20 mg tablet 20 mg PO BID PRN pain 08/07/24 02/22/25 History mecobalamin (vitamin B12) 500 mcg 500 mcg PO DAILY supplement 01/17/25 02/21/25 History chewable tablet acetaminophen 325 mg tablet 1,300 mg (4 x 325 mg) PO Q8H PRN 01/20/25 02/22/25 Rx PRN Pain 1-10 Or Fever>100.7 #0 tabs loratadine 10 mg tablet 10 mg PO DAILY allergies 02/22/25 02/22/25 History (Allerclear) OXYGEN - Supplemental ([facility] 02/23/25 Unknown History INFORMATIONAL USE ONLY) apixaban 5 mg tablet (Eliquis) 10 mg PO BID #68 tabs 02/28/25 Unknown Rx lorazepam 0.5 mg tablet PO 03/16/25 Unknown History lorazepam 2 mg tablet PO 03/16/25 Unknown History metformin 500 mg tablet 500 mg PO QPM 03/16/25 Unknown History nitrofurantoin macrocrystal 50 mg 50 mg PO QHS 03/16/25 Unknown History capsule Allergy/AdvReac Type Severity Reaction Status Date / Time Environmental Allergies: Allergy Mild sneezing Verified 03/16/25 19:52 Uncoded (dust) house dust Allergy Mild sneeezing Verified 03/16/25 19:52 pollen extracts Allergy Mild sneezing Verified 03/16/25 19:52 Family History Mother CVA (cerebral vascular accident) Hypertension Father Hypertension Prostate CA Surgical History Chronic suprapubic catheter S/P colostomy History of back surgery Hx of neck surgery Hx of spinal surgery Social History household members: spouse housing: house Smoking Status: Former smoker alcohol intake: never substance use type: does not use ROS ROS ED Review of Systems ROS Unobtainable: due to mental status and other Details: All that was available from family was documented HPI narrative otherwise unable to obtain EXAM Physical Exam Const Vital Signs: 03/16/25 19:44 03/16/25 19:46 03/16/25 19:52 Temperature 98.5 F 98.5 F Temperature Source Axillary Axillary Pulse Rate 89 92 89 Respiratory Rate 22 H 20 H 22 H Respiratory Pattern Normal Blood Pressure 117/85 H 117/85 H Blood Pressure Mean 95 95 Pulse Ox 96 97 96 Oxygen Delivery Method Bi-pap Bi-pap Oxygen Flow Rate (L/min) 18 18 Fraction of Inspired Oxygen (FIO2) 100 100 100 03/16/25 20:11 03/16/25 20:30 03/16/25 20:38 Temperature Temperature Source Pulse Rate 88 83 82 Respiratory Rate 24 H 16 18 Respiratory Pattern Normal Blood Pressure 111/86 H 141/111 H Blood Pressure Mean 94 121 Pulse Ox 100 100 100 Oxygen Delivery Method Mechanical Ventilator Oxygen Flow Rate (L/min) Fraction of Inspired Oxygen (FIO2) 03/16/25 21:05 03/16/25 21:30 03/16/25 22:00 Temperature Temperature Source Pulse Rate 81 74 74 Respiratory Rate 18 18 18 Respiratory Pattern Normal Blood Pressure 112/83 H 119/89 H Blood Pressure Mean 92 99 Pulse Ox 100 99 99 Oxygen Delivery Method Mechanical Ventilator Mechanical Ventilator Oxygen Flow Rate (L/min) Fraction of Inspired Oxygen (FIO2) 40 40 Positive well nourished, well developed and unkempt Constitutional Narrative: Patient is somnolent with a GCS of 6. He is tachypneic on BiPAP. He is not hypoxic on BiPAP. General Appearance ED: unkempt, well developed and pallor HEENT normocephalic and atraumatic; Negative for cyanosis of lips/distal nose Eyes PERRL and EOMs intact bilaterally General Eye ED: Negative for pale conjunctiva or scleral icterus Neck no lymphadenopathy Neck Narrative: Unable to turn the patient has JVD due to his body habitus with multiple fat folds. Chest Wall Chest Narrative: Chest appears normal. He has shallow breathing. He has coarse breath sounds with expiration. There is no expiratory wheezing. There is decreased air movement with increased expiratory phase. He has some rales. Resp Resp Narrative: See chest wall portion of the EMR Cardio regular rate, regular rhythm and no murmurs Cardio Narrative: Heart tones are distant. GI non-tender, non-distended and no masses GI Narrative: Flabby. There is no abdominal bruit. Due to body habitus unable to determine if he has pulsatile mass. Palpation: soft Narrative: Normal external genitalia. He does have a suprapubic catheter noted. Extremity Extremity Narrative: He has no acral cyanosis. Capillary fill slightly delayed. Neuro No oriented x3 Neuro Narrative: GCS is 4. He mumbles to noxious stimuli Sensorium / Orientation: Negative for alert Speech: Negative for speech normal Psych Appearance: unkempt Skin Skin Narrative: Patient has decubiti right buttocks area, believes stage III difficult to visualize since patient is unable to move General Skin Exam: pallor; Negative for jaundice MDM MDM MDM Narrative Medical decision making narrative: Patient unresponsive concern he may have respiratory failure with hypoxia and hypercapnia specially after reviewing his prior records. ABG was obtained and patient does have acute on chronic CO2 retention with hypoxemia acute on chronic. Will obtain chest x-ray to determine if he has pneumothorax, pneumonia, CHF in light of his oscillatory findings. EKG to rule out acute ischemia. Appropriate blood work to assess white count, H&H, any endorgan dysfunction, elevated troponin to suggest non-ST elevation CA and BNP because there is concern for heart failure. Patient was orotracheal intubated using glide scope. 7.5 [place] endotracheal tube was placed. Patient was preoxygenated on BiPAP. He received 20 mg of etomidate followed by 64 mg of rocuronium. He was intubated successfully first attempt. Breath sounds were noted bilaterally and symmetric. Appropriate color change on capnometer. Orogastric tube was then placed by me. Will obtain chest x-ray and abdominal x-ray to confirm proper position of the endotracheal tube and OG. Patient was placed on a propofol drip. I was informed at 2042 by [place] the respiratory therapist that now patient has frothy pink-tinged sputum. This would suggest CHF and concern he may have CHF on the x-ray. Lab Data Attestation: I reviewed the patient's lab results. Lab results narrative: CBC is normal. Patient has mild anemia. Differential is unremarkable. Comprehensive metabolic panel is unremarkable. First troponin slightly elevated 24. Urinalysis reveals pyuria and bacteriuria. This may represent a urinary tract infection. The antibiotic she was started on will cover both respiratory and urologic pathogens. Labs: Laboratory Results - last 24 hr 03/16/25 03/16/25 20:26 21:05 WBC 7.1 RBC 4.30 L Hgb 11.5 L Hct 39.5 L MCV 91.9 MCH 26.7 L MCHC 29.1 L RDW Std Deviation 55.4 H RDW Coeff of Josue 16.4 H Plt Count 273 MPV 9.5 Immature Gran % (Auto) 1.400 H Neut % (Auto) 67.2 Lymph % (Auto) 20.6 [place] % (Auto) 7.4 Eos % (Auto) 2.7 Baso % (Auto) 0.7 Absolute Neuts (auto) 4.8 Absolute Lymphs (auto) 1.47 Nucleated RBC % 0 Sodium 136 Potassium 4.6 Chloride 99 Carbon Dioxide 25.8 Anion Gap 11 BUN 6 Creatinine 0.57 L Estim Creat Clear Calc 101.46 Est GFR (MDRD) Non-Af 107 BUN/Creatinine Ratio 11.2 Glucose 151 H Calcium 8.9 Total Bilirubin 0.28 AST 28 ALT 25 Alkaline Phosphatase 84 Total Creatine Kinase 24 Troponin T High Sens 24 H D NT pro BNP II 628 Total Protein 6.6 Albumin 3.2 L Globulin 3.4 Albumin/Globulin Ratio 0.9 Triglycerides 198 Urine Color Yellow Urine Clarity Cloudy Urine pH 6.0 Ur Specific [place] 1.030 Urine Protein 30 H Urine Glucose (UA) Normal Urine Ketones 15 H Urine Occult Blood 150 H Urine Nitrite Positive H Urine Bilirubin Negative Urine Urobilinogen Normal Ur Leukocyte Esterase 500 H Urine RBC 50-100 SEEN Urine WBC >100 SEEN Ur Squamous Epith Cells 0-5 SEEN Calcium Oxalate Crystal 1+ Urine Bacteria 3+ Hyaline Casts 0-5 SEEN Urine Mucus 2+ Urine Yeast 2+ ABG Data Attestation: I personally reviewed and interpreted this ABG as follows: Interpretation: Patient has a mixed acid-base picture. He is acidotic. He has an elevated pCO2 of 85 with a P O2 of 88 on 100%. This is reveals a marked AA gradient. ABG results: ABG 03/16/25 19:58 Specimen Type ART Sample Site L Radial pH 7.22 L Bicarbonate Actual 35.2 H Total CO2 38 Base Excess 8 H O2 Saturation 94 O2 % 100.0 ABG pCO2 85.1 H* ABG pO2 88 Rafal Test Positive Respiration Rate 14 O2 Delivery Device BiPAP Vent Mode Not entered POC PEEP 10 Crit Call To/Read Back Yes Blood Gas Notified Whom Saavedra Blood Gas Notified Time 20:00:08 Clinical Comments 14/01 14 100% Radiography Chest X-Ray - ED: 1 View (Was viewed on the portable x-ray machine. It is not optimal since he is rotated. He may have cardiomegaly. He may have an infiltrate on the right side. He does have evidence of cephalization and what appears to be effusion as well. Will repeat after nurse is complete orders.), Read by ED Physician (Postintubation x-ray reveals the entry to be right at the ede or possibly orifice of the right main bronchus. Respiratory's been asked to pull her back off a centimeter. He appears to have a pneumonia/infiltrate on the right. There is evidence of cardiomegaly. The x-ray is unchanged from Nove) and - (KUB reveals the orogastric tube is in proper position.) Diagnostic Testing: Clinical Impression(s) from Imaging Studies Chest X-Ray 03/16/25 20:00 IMPRESSION: Cardiomegaly with vascular congestion. Bibasilar consolidation and/or atelectasis, possibly with small pleural effusions. Reading Location: [facility] Chest X-Ray 03/16/25 20:50 IMPRESSION: 1. Endotracheal tube tip projects 2.3 cm above the ede. 2. Enteric tube terminates in the expected location of the stomach or proximal duodenum. 3. No significant change in lung aeration with bibasilar atelectasis and probable layering pleural effusions, with coexisting consolidation not excluded. Cardiomegaly. Reading Location: [facility] Radiology believes there is some venous congestion. His BNP is normal. With no history of heart failure suspect this is more likely due to infectious process or noncardiogenic congestion. EKG Initial EKG: Attestation: I personally reviewed and interpreted this EKG as follows: Interpretation: Sinus Rhythm (Rate is 87. He has low voltage shows maybe due to body habitus. GA interval is under 70 ms. QS 372 ms. QT duration 116 ms. [place] is normal.) Management Discussion w/another healthcare provider: Hospitalist (Case was discussed with the night hospitalist Dr. Almeida. Informed him of patient's past admission x-ray findings and radiologist to potation versus mine. He was informed the reason why antibiotics were started.) and Other (Respiratory therapist) Critical Care Time Critical Care Time: Yes Critical care time (excluding procedures): 30-74 minutes (47), Including time spent: (History, physical, documentation, review of most recent admission and labs, discussion with family regarding CODE STATUS and his history since he is nonverbal), Discussing w/Patient &/or Family/Coding Technician, Discussing w/Consultants and Arranging Admission or Transfer Discharge Plan Dx/Rx/DC Orders Clinical Impression: Acute on chronic respiratory failure with hypoxia and hypercapnia, Right middle lobe pulmonary infiltrate, Pleural effusion, COPD (chronic obstructive pulmonary disease), Hx of pulmonary embolus, Anticoagulant long-term use, Decubitus ulcer of right buttock, stage 3 Disposition Disposition: Acute Care Hospital [facility]
--- NOTE | 2025-03-16 20:50 | RAD_ITS ---
PROCEDURE: CHEST 1 VIEW (PORTABLE) 03/16/2025 REASON FOR EXAM: INTUBATION TECHNIQUE: Frontal view of the chest. COMPARISON: Earlier same day 03/16/2025 FINDINGS: Endotracheal tube tip projects roughly 2.3 cm above the ede. Enteric tube courses midline, extending below the diaphragm into the upper midabdomen terminating the expected location of the stomach or proximal duodenum. Cardiomegaly with vascular congestion. Shallow lung volumes with bibasilar atelectasis. Bilateral hazy airspace opacities may reflect layering pleural effusion and/or edema, with coexisting consolidation not excluded. No pneumothorax. Degenerative changes of the spine. ACDF hardware. RAD/Chest 1 View (Portable) IMPRESSION: 1. Endotracheal tube tip projects 2.3 cm above the ede. 2. Enteric tube terminates in the expected location of the stomach or proximal duodenum. 3. No significant change in lung aeration with bibasilar atelectasis and probab le layering pleural effusions, with coexisting consolidation not excluded. Cardiomegaly. Reading Location: [id number]
[2025-03-16 20:53] LABS: Hematocrit 39.5 % (40-54); Hemoglobin 11.5 g/dL (13.0-16.5); Immature Granulocytes Count 0.100 X10^3/uL (0.0-0.0); Mean Corp Hgb Conc 29.1 g/dL (32-36); Mean Corpuscular Volume 91.9 fL (80-94); Mean Platelet Vol. 9.5 fl (6.2-12.0); NRBC Flagged by Analyzer 0 % (0-5); Platelet Count 273 K/mm3 (150-450); RBC Distribution Width CV 16.4 % (11.6-14.6); RBC Distribution Width SD 55.4 fl (35.1-43.9); Red Blood Count 4.30 M/mm3 (4.6-6.2); White Blood Count 7.1 K/mm3 (4.4-11.0)
[2025-03-16 21:04] LABS: AST(SGOT) 28 U/L (<=37); Alanine Aminotransfer ALT/SGPT 25 U/L (<=46); Albumin, Serum 3.2 g/dL (3.4-4.8); Alkaline Phosphatase 84 U/L (40-129); Anion Gap 11 (5-15); BUN 6 mg/dL (4-19); BUN/Creat Ratio 11.2 RATIO (10-20); Calcium,Total 8.9 mg/dL (7.6-11.0); Carbon Dioxide 25.8 mmol/L (21.0-32.0); Chloride 99 mmol/L (98-108); Estimated Creatinine Clearance 101.46 ml/min (50-250); Globulin 3.4 g/dL (2.2-4.2); Glucose 151 mg/dL (70-99); Potassium 4.6 mmol/L (3.3-5.1); Pro- Brain NATRIURETIC PEPTIDE 628 pg/mL (<=900)
[2025-03-16 21:17] LABS: Troponin T High Sensitivity 24 ng/L (<=22)
[2025-03-16 21:17] LABS: Color, Urine Yellow (Yellow); Glucose, Dipstick Normal (Normal); Ketone-Dipstick 15 mg/dl (Negative); Leukocyte Esterase-Dipstick 500 /ul (Negative); Nitrite-Dipstick Positive (Negative); Occult Blood-Urine 150 /ul (Negative); Protein-Dipstick 30 mg/dl (Negative); Specific Gravity, Urine 1.030 (1.002-1.030); Urine Bilirubin Dipstick Negative (Negative)
[2025-03-16 21:32] LABS: Calcium Oxalate Crystals Ur 1+ /hpf (<or=2+); Mucous, Urine 2+ /hpf (<or=2+); Red Blood Cells-Urine 50-100 SEEN /hpf (0-5); Squamous Epithelial Cells - UA 0-5 SEEN /hpf (0-5)
[2025-03-16 21:33] LABS: Yeast-Urine 2+ /hpf (None Seen)
[2025-03-16 22:07] LABS: CPK Total, Creatine Kinase 24 U/L (24-195); Triglycerides 198 mg/dL
[2025-03-16] MEDS: Piperacil/Tazobactam 4.5 GM in 0.9% Normal Saline (100mL MB+) 100 ML IV (22:10)
[2025-03-16] MEDS: Albuterol 2.5 MG/3 ML VIAL.NEB. INHALATION (22:17)
--- NOTE | 2025-03-16 22:21 | PCM.HP.STD ---
HPI - General General Date of Admission: 03/16/25 HPI Narrative JORGE LINDSEY, is a 69 M who presents with increased confusion, shortness of breath, lethargy. He was found to have hypoxia down to the 50s and an ABG demonstrated pCO2 at 85 mmHg. Initially he was trialed on BiPAP without success so he was intubated in the emergency room. Family denies any recent history of infection, he was discharged on with a newly diagnosed PE and pneumonia but he had completed antibiotics. Per family he is paraplegic and is wheelchair-bound and bedbound. [facility] Medical History Pulmonary embolism Diabetes Scoliosis Fusion of spine, cervical region Thoracic myelopathy Cervical myelopathy Colostomy in place Wheelchair dependent Paraplegic spinal paralysis History of pressure ulcer Constipation Other acute postprocedural pain Wears glasses Thyroid disease Arthritis Uses wheelchair High cholesterol Gastric reflux COPD (chronic obstructive pulmonary disease) Hx of fracture of arm Hx of head injury Bedridden Smoker Right ischial pressure sore, stage 4 Urinary tract infection Spinal cord injury Tobacco abuse Hypothyroidism Hyperlipidemia COPD (chronic obstructive pulmonary disease) Home Medications ?Medication ?Instructions ?Recorded ?Last Taken ?Type levothyroxine 125 mcg tablet 125 mcg PO DAILY THYROID 12/17/17 02/22/25 History tamsulosin 0.4 mg capsule 0.4 mg PO BID PROSTATE 12/17/17 02/22/25 History icosapent ethyl 1 gram capsule 2 g PO BIDCM cholesterol 02/08/22 02/22/25 History (Vascepa) omeprazole 40 mg capsule,delayed 40 mg PO DAILY reflux 08/02/24 02/22/25 History release baclofen 20 mg tablet 20 mg PO BID PRN pain 08/07/24 02/22/25 History mecobalamin (vitamin B12) 500 mcg 500 mcg PO DAILY supplement 01/17/25 02/21/25 History chewable tablet acetaminophen 325 mg tablet 1,300 mg (4 x 325 mg) PO Q8H PRN 01/20/25 02/22/25 Rx PRN Pain 1-10 Or Fever>100.7 #0 tabs loratadine 10 mg tablet 10 mg PO DAILY allergies 02/22/25 02/22/25 History (Allerclear) OXYGEN - Supplemental ([facility] 02/23/25 Unknown History INFORMATIONAL USE ONLY) apixaban 5 mg tablet (Eliquis) 10 mg PO BID #68 tabs 02/28/25 Unknown Rx lorazepam 0.5 mg tablet PO 03/16/25 Unknown History lorazepam 2 mg tablet PO 03/16/25 Unknown History metformin 500 mg tablet 500 mg PO QPM 03/16/25 Unknown History nitrofurantoin macrocrystal 50 mg 50 mg PO QHS 03/16/25 Unknown History capsule Allergy/AdvReac Type Severity Reaction Status Date / Time Environmental Allergies: Allergy Mild sneezing Verified 03/16/25 19:52 Uncoded (dust) house dust Allergy Mild sneeezing Verified 03/16/25 19:52 pollen extracts Allergy Mild sneezing Verified 03/16/25 19:52 Family History Mother CVA (cerebral vascular accident) Hypertension Father Hypertension Prostate CA Surgical History Chronic suprapubic catheter S/P colostomy History of back surgery Hx of neck surgery Hx of spinal surgery Social History household members: spouse housing: house Smoking Status: Former smoker alcohol intake: never substance use type: does not use ROS Review of Systems ROS Unobtainable: due to endotracheal tube Patient's Goals Of Care . Unable to discuss care goals with the patient and or patient branch customer service representative at this time: Yes Vital Signs Vital Signs Vital Signs: 03/16/25 19:44 03/16/25 19:46 03/16/25 19:52 Temperature 98.5 F 98.5 F Temperature Source Axillary Axillary Pulse Rate 89 92 89 Respiratory Rate 22 H 20 H 22 H Respiratory Pattern Normal Blood Pressure 117/85 H 117/85 H Blood Pressure Mean 95 95 Pulse Ox 96 97 96 Oxygen Delivery Method Bi-pap Bi-pap Oxygen Flow Rate (L/min) 18 18 Fraction of Inspired Oxygen (FIO2) 100 100 100 03/16/25 20:38 03/16/25 21:05 03/16/25 22:15 Temperature Temperature Source Pulse Rate 82 81 76 Respiratory Rate 18 18 18 Respiratory Pattern Normal Normal Blood Pressure 118/80 Blood Pressure Mean 92 Pulse Ox 100 100 94 Oxygen Delivery Method Mechanical Ventilator Oxygen Flow Rate (L/min) Fraction of Inspired Oxygen (FIO2) 40 Weight Weight: 236 lb 6.4 oz Body Mass Index (BMI) 38.1 Physical Exam Const General Appearance: intubated and patient mechanically ventilated HEENT normocephalic Eyes PERRL and conjunctivae normal Neck supple and no JVD Resp normal respiratory effort, no retractions and no use of accessory muscles Auscultation: rhonchi and wheezes; Negative for crackles or rales Cardio regular rate, regular rhythm, S1 normal heart sound, S2 normal heart sound and no murmurs GI soft to palpation and non-distended; Negative for hepatosplenomegaly Extremity no clubbing, cyanosis or edema Skin no rashes or lesions noted Neuro Sensorium / Orientation: sedated on vent Psych Appearance: intubated Results Lab / Micro Data 03/16/25 20:26 03/16/25 20:26 Labs: Laboratory Results - last 24 hr 03/16/25 20:26: WBC 7.1, RBC 4.30 L, Hgb 11.5 L, Hct 39.5 L, MCV 91.9, MCH 26.7 L, MCHC 29.1 L, RDW Std Deviation 55.4 H, RDW Coeff of Josue 16.4 H, Plt Count 273, MPV 9.5, Immature Gran % (Auto) 1.400 H, Neut % (Auto) 67.2, Lymph % (Auto) 20.6, [place] % (Auto) 7.4, Eos % (Auto) 2.7, Baso % (Auto) 0.7, Absolute Neuts (auto) 4.8, Absolute Lymphs (auto) 1.47, Nucleated RBC % 0, Sodium 136, Potassium 4.6, Chloride 99, Carbon Dioxide 25.8, Anion Gap 11, BUN 6, Creatinine 0.57 L, Estim Creat Clear Calc 101.46, Est GFR (MDRD) Non-Af 107, BUN/Creatinine Ratio 11.2, Glucose 151 H, Calcium 8.9, Total Bilirubin 0.28, AST 28, ALT 25, Alkaline Phosphatase 84, Total Creatine Kinase 24, Troponin T High Sens 24 H D, NT pro BNP II 628, Total Protein 6.6, Albumin 3.2 L, Globulin 3.4, Albumin/Globulin Ratio 0.9, Triglycerides 198 03/16/25 21:05: Urine Color Yellow, Urine Clarity Cloudy, Urine pH 6.0, Ur Specific [place] 1.030, Urine Protein 30 H, Urine Glucose (UA) Normal, Urine Ketones 15 H, Urine Occult Blood 150 H, Urine Nitrite Positive H, Urine Bilirubin Negative, Urine Urobilinogen Normal, Ur Leukocyte Esterase 500 H, Urine RBC 50-100 SEEN, Urine WBC >100 SEEN, Ur Squamous Epith Cells 0-5 SEEN, Calcium Oxalate Crystal 1+, Urine Bacteria 3+, Hyaline Casts 0-5 SEEN, Urine Mucus 2+, Urine Yeast 2+ Micro: Microbiology 03/16/25 20:25 Mucosa - Nasopharyngeal SARS-CoV-2, Influenza & RSV (PCR) - Final ABG Data ABG results: ABG 03/16/25 19:58 Specimen Type ART Sample Site L Radial pH 7.22 L Bicarbonate Actual 35.2 H Total CO2 38 Base Excess 8 H O2 Saturation 94 O2 % 100.0 ABG pCO2 85.1 H* ABG pO2 88 Rafal Test Positive Respiration Rate 14 O2 Delivery Device BiPAP Vent Mode Not entered POC PEEP 10 Crit Call To/Read Back Yes Blood Gas Notified Whom Saavedra Blood Gas Notified Time 20:00:08 Clinical Comments 14/01 14 100% Imaging Radiology Impression Chest X-Ray 03/16/25 20:00 IMPRESSION: Cardiomegaly with vascular congestion. Bibasilar consolidation and/or atelectasis, possibly with small pleural effusions. Reading Location: [facility] Chest X-Ray 03/16/25 20:50 IMPRESSION: 1. Endotracheal tube tip projects 2.3 cm above the ede. 2. Enteric tube terminates in the expected location of the stomach or proximal duodenum. 3. No significant change in lung aeration with bibasilar atelectasis and probable layering pleural effusions, with coexisting consolidation not excluded. Cardiomegaly. Reading Location: [facility] Assessment & Plan Assessment/Plan (1) COPD (chronic obstructive pulmonary disease): PLAN: Plan 1. Acute hypoxic and hypercapnic respiratory failure secondary to COPD exacerbation ? Chest x-ray demonstrated bilateral atelectasis, no leukocytosis ? Will obtain a sputum culture and temporarily treat with antibiotics for 24 to 48 hours ? Currently intubated and sedated, will admit to the ICU ? Continue with steroids and breathing treatments ? Will continue with vent management protocol 2. Pulmonary embolism ? This is a recent diagnosis about 2 weeks ago ? He should have completed the 10 mg p.o. twice daily of Eliquis ? Will transition to 5 mg p.o. twice daily per G-tube 3. DM2 ? Will place him on Accu-Cheks ? Sliding scale insulin ? Will adjust as necessary 4. GERD ? Stable ? Continue with PPI 5. Hypothyroidism ? Stable ? Continue with Synthroid 6. BPH with obstruction ? Stable ? Can resume Flomax when verified DVT: Eliquis Charges/Coding Visit Charges Inpatient E&M: 98695 Init Hosp L3
[2025-03-16 22:45] LABS: Allen Test Positive; Base Excess 8 mmol/L (-2 to +2); Comment ACVC+; FI02 40.0; PEEP 5; PO2 43 mmHG (75-100); RR 18; SITE L Radial; SO2 81 % (94-98)
--- OUTSIDE RECORDS SUMMARY | 2025-03-16 22:47 | XMS RPT_ITS | CCD ---
Author Organization [facility] Care Team Providers Care Cook Helper Preserves Name Role Phone PRAVIN PEDRAZA Attending Unavailable [...] Provider Dr. Kari Romero Other Provider Ramiro TWISTER TENDER PAPER, TWISTER TENDER PAPER-C Kemi Adam Attending Provider [phone] Dr. Deshawn Mason Attending Provider Ramiro TWISTER TENDER PAPER, TWISTER TENDER PAPER-C Kemi Adam Other Provider Dr. Brian Cardona [...] Provider Dr. Kari Romero Other Provider Ramiro TWISTER TENDER PAPER, TWISTER TENDER PAPER-C Kemi E Attending Provider [phone] Ramiro TWISTER TENDER PAPER, TWISTER TENDER PAPER-C Kemi E Other Provider Dr. Brian Cardona [...] Provider [place], [place] Cristy Referring Provider Ramiro TWISTER TENDER PAPER, TWISTER TENDER PAPER-C Kemi E Attending Provider Dr. Kari Romero Attending Provider Ramiro TWISTER TENDER PAPER, TWISTER TENDER PAPER-C Kemi E Referring Provider [phone] Dr. Brian Cardona Primary Care Provider [place], [place] Cristy Referring Provider Ramiro TWISTER TENDER PAPER, TWISTER TENDER PAPER-C Kemi E Attending Provider Ramiro TWISTER TENDER PAPER, TWISTER TENDER PAPER-C Kemi E Other Provider Dr. Kari Romero Attending Provider Dr. Kari Romero Other Provider CARLOS Verma Referring Provider Ramiro TWISTER TENDER PAPER, TWISTER TENDER PAPER-C Kemi E Attending Provider Ramiro TWISTER TENDER PAPER, TWISTER TENDER PAPER-C Kemi E Other Provider Care Physician, No Primary Primary Care Provider Unavailable Care Physician, No Primary Referring Provider Un available Dr. Kari Romero Attending Provider Ramiro TWISTER TENDER PAPER, TWISTER TENDER PAPER-C Kemi E Attending Provider Ramiro TWISTER TENDER PAPER, TWISTER TENDER PAPER-C Kemi E Other Provider Care Physician, No Primary Primary Care Provider Unavailable Dr. Brian Cardona Primary Care Provider Dr. Chas Paiz Attending Provider Dr. Kari Romero Referring Provider Dr. Kari Romero Other Provider Dr. Kari Romero Admit Provider Dr. Nakita Arroyo Attending Provider Ramiro TWISTER TENDER PAPER, TWISTER TENDER PAPER-C Kemi E Attending Provider [phone] Ramiro TWISTER TENDER PAPER, TWISTER TENDER PAPER-C Kemi E Referring Provider [phone] Ramiro TWISTER TENDER PAPER, TWISTER TENDER PAPER-C Kemi E Other Provider Care Physician, No Primary Primary Care Provider Unavailable Ramiro TWISTER TENDER PAPER, TWISTER TENDER PAPER-C Kemi E Attending Provider Ramiro TWISTER TENDER PAPER, TWISTER TENDER PAPER-C Kemi E Referring Provider Ramiro TWISTER TENDER PAPER, TWISTER TENDER PAPER-C Kemi E Other Provider [phone] Care Physician, No Primary Primary Care Provider Unavailable Dr. Brian Cardona Referring Provider Ramiro TWISTER TENDER PAPER, TWISTER TENDER PAPER-C Kemi E Attending Provider [phone] Ramiro TWISTER TENDER PAPER, TWISTER TENDER PAPER-C Kemi E Referring Provider Ramiro TWISTER TENDER PAPER, TWISTER TENDER PAPER-C Kemi E Other Provider Care Physician, No Primary Primary Care Provider Unavailable Dr. Kari Romero Attending Provider Ramiro TWISTER TENDER PAPER, TWISTER TENDER PAPER-C Kemi E Attending Provider Ramiro TWISTER TENDER PAPER, TWISTER TENDER PAPER-C Ekmi E Referring Provider [phone] Ramiro TWISTER TENDER PAPER, TWISTER TENDER PAPER-C Kemi E Other Provider Care Physician, No Primary Primary Care Provider Unavailable Dr. Kari Romero Attending Provider Dr. Kari Romero Referring Provider Dr. Kari Romero Other Provider Dr. Brian Cardona Primary Care Provider Dr. Kari Romero Admit Provider Dr. Nakita Arroyo Attending Provider Dr. Brian Cardona Referring Provider CARLOS Bearden Referring Provider Brian Cardona MD Primary Care Provider Ramiro TWISTER TENDER PAPER, TWISTER TENDER PAPER-C Kemi E Attending Provider Ramiro TWISTER TENDER PAPER, TWISTER TENDER PAPER-C Kemi E Referring Provider Ramiro TWISTER TENDER PAPER, TWISTER TENDER PAPER-C Kemi E Other Provider Dr. Brian Cardona Primary Care Provider Dr. Krai Romero Attending Provider Dr. Popeye Messina Attending Provider Dr. Popeye Messina Referring Provider Ramiro TWISTER TENDER PAPER, TWISTER TENDER PAPER-C Kemi E Attending Provider Ramiro TWISTER TENDER PAPER, TWISTER TENDER PAPER-C Kemi E Referring Provider Ramiro TWISTER TENDER PAPER, TWISTER TENDER PAPER-C Kemi E Other Provider Dr. Brian Cardona Primary Care Provider Ramiro TWISTER TENDER PAPER, TWISTER TENDER PAPER-C Kemi E Attending Provider [phone] Ramiro TWISTER TENDER PAPER, TWISTER TENDER PAPER-C Kemi E Referring Provider Ramiro TWISTER TENDER PAPER, TWISTER TENDER PAPER-C Kemi E Other Provider Dr. Brian Cardona Primary Care Provider Ramiro TWISTER TENDER PAPER, TWISTER TENDER PAPER-C Kemi E Other Provider Dr. Brian Cardona Primary Care Provider Dr. Popeye Messina Attending Provider Dr. Popeye Messina Referring Provider Ramiro TWISTER TENDER PAPER, TWISTER TENDER PAPER-C Kemi E Attending Provider [phone] Ramiro TWISTER TENDER PAPER, TWISTER TENDER PAPER-C Kemi E Referring Provider Ramiro TWISTER TENDER PAPER, TWISTER TENDER PAPER-C Kemi E Attending Provider Ramiro TWISTER TENDER PAPER, TWISTER TENDER PAPER-C Kemi E Referring Provider [phone] Ramiro TWISTER TENDER PAPER, TWISTER TENDER PAPER-C Kemi E Other Provider Dr. Brian Cardona Primary Care Provider Dr. Brian Cardona Referring Provider CARLOS Fuchs Attending Provider CARLOS Bearden Referring Provider Kristine GOOD, Zackery Gomes Unavailable Yessenia GOOD, Rikki Huffman Unavailable Cristy Stoll Referring Provider Dr. Brian Cardona MD Primary Care Provider Un available Dr. Luca Nayak MD Attending Provider Dr. Luca Nayak MD Other Provider Ramiro TWISTER TENDER PAPER-C, Kemi E Attending Provider Ramiro TWISTER TENDER PAPER-C, Kemi E Referring Provider Ramiro TWISTER TENDER PAPER-C, Kemi E Other Provider Dr. Luca Nayak [...] MD Primary Care Provider Un available Ramiro TWISTER TENDER PAPER-C, Kemi E Attending Provider Dr. Luca Nayak MD Attending Provider Dr. Luca Nayak MD Other Provider Colin GOOD, Dr. Andrews Referring Provider Dr. Brian Cardona MD Attending Provider Unava pooja GONZALEZ, Cristy Referring Provider Dr. Brian Cardona MD Primary Care Provider Un available Ramiro TWISTER TENDER PAPER-C, Keim E Attending Provider Ramiro TWISTER TENDER PAPER-C, Kemi E Other Provider Dr. Luca Nayak [...] Torres Primary Care Provider Un available Ramiro TWISTER TENDER PAPER-C, Kemi Adam Other Provider Nael GOOD, Dr. Segovia Attending Provider Nael GOOD, Dr. Segovia Referring Provider Suleiman GONZALEZ, Cristy Referring Provider Ramiro TWISTER TENDER PAPER-C, Kemi Adam Attending Provider Quentin GOOD, Dr. Ambrosio Attending Provider Steven GOOD, Dr. Pantoja Emergency Provider Erasmo GOOD, Dr. Torres Primary Care Provider Un available Nael GOOD, Dr. Segovia Attending Provider Nael GOOD, Dr. Segovia Referring Provider Nael GOOD, Dr. Segovia Other Provider Erasmo OGOD, Dr. Torres Referring Provider Pam Quevedo MD, [...] Provider Steven GOOD, Dr. Pantoja Emergency Provider rEasmo GOOD, Dr. Torres Primary Care Provider Un [...] Nael GOOD, Dr. Segovia Other Provider Nael GODO, Dr. Segovia Referring Provider Erasmo GOOD, Dr. [...] Fuentes ORTEGA, Dr. Richmond Attending Physician Geronimo TWISTER TENDER PAPER-C, Susan Nurse Practitione r Dr. Basilio Dill DO Nurse Practitioner Geronimo TWISTER TENDER PAPER-C, Susan Attending Physici an Edmundo Quevedo Referring Unavailable Quevedo, Edmundo Attending Unavailable Gunning, Brian Primary Care Unavailable Gunning, Brian Primary Care Unavailable Juliana Shaw Attending Unavailable Juliana Shaw Admitting Unavailable Gunning, Brian Primary Care Unavailable White, Isha L Consulting Unavailable White, Isha L Referring Unavailable White, Isha L Admitting Unavailable Basilio Dill Attending Unavailable Miller Blank Consulting Unavailable RicFelix Consulting Unavailable Ramiro TWISTER TENDER PAPER, Kemi Adam Attending Unavailabl e Bearden, Cristy [...] Care Unavailable Siska, Luca Consulting Unavailable Ramiro TWISTER TENDER PAPER, Kemi E Attending Unavailabl e Ramiro TWISTER TENDER PAPER, Kemi E Referring Unavailabl e Gunning, Brian Primary Care Unavailable Siska, Luca Attending Unavailable Bearden, Cristy Referring Unavailable Gunning, Brian Primary Care Unavailable Gunning, Brian Primary Care Unavailable Gunning, Brian Attending Unavailable Gunning, Brian Referring Unavailable Siska, Luca Attending Unavailable Gunning, Brian Primary Care Unavailable Bearden, Cristy Referring Unavailable Ramiro TWISTER TENDER PAPER, Kemi E Attending Unavailabl e Bearden, Cristy [...] Care Unavailable Siska, Luca Attending Unavailable Ramiro TWISTER TENDER PAPER, Kemi E Consulting Unavailabl e Siska, Luca Referring Unavailable Gunning, Brian Primary Care Unavailable Ramiro TWISTER TENDER PAPER, Kemi Adam Attending Unavailabl e Gunning, Brian [...] Unavailable Gunning, Brian Primary Care Unavailable White, Ihsa L Consulting Unavailable White, Isha L Attending Unavailable White, Isha L Referring Unavailable White, Isha L Admitting Unavailable KitMiller perez Attending Unavailable KitwueMiller Consulting Unavailable Gunning, Brian Primary Care Unavailable Edmundo Quevedo Attending Unavailable Gunfelix, Brian Referring Unavailable Juliana Shaw Referring Unavailable Alex Mancera Attending Unavailable Gunning, Brian Primary Care Unavailable Siska, Luca Attending Unavailable Ramiro TWISTER TENDER PAPER, Kemi E Consulting Unavailabl e Siska, Luca Referring Unavailable Gunning, Brian Primary Care Unavailable Siska, Luca Attending Unavailable Siska, Luca Consulting Unavailable Bearden, Cristy Referring Unavailable Gunning, Brian Primary Care Unavailable Siska, Luca Attending Unavailable Siska, Luca Referring Unavailable Armiro TWISTER TENDER PAPER, Kemi E Consulting Unavailabl e Gunning, Brian [...] Care Unavailable Gunning, Brian Referring Unavailable Ramiro TWISTER TENDER PAPER, Kemi Adam Attending Unavailabl e Gunning, Brian Primary Care Unavailable Siska, Luca Attending Unavailable Bearden, Cristy Referring Unavailable Gunning, Brian Primary Care Unavailable Ramiro TWISTER TENDER PAPER, Kemi Adam Attending Unavailabl e Bearden, Cristy Referring Unavailable Gunning, Brian Primary Care Unavailable Gunning, Brian Primary Care Unavailable Juliana Shaw Attending Unavailable Juliana Shaw Referring Unavailable Susan Melton Consulting JazmynvaSusan Martinez Attending Jazmynvahomer lable Allergies Allergy Classification Reported Allergen(s) Allergy Type Date of Onset Reaction(s) Facility (2 sources) Dust; Translations: [DUST] Propensity to adverse reactions (disorder) 9 [facility] Repository (2 sources) Mold spore; Translations: [MOLD SPORES] Propensity to adverse reactions (disorder) 9 [facility] Repository (20 sources) Pollen Allergy to substance 2 NEEDS FOLLOW-UP [facility] (20 sources) Environmental Allergies: Uncoded; Translations: [Environmental Allergies: Uncoded] Allergy to substance 2 NEEDS FOLLOW-UP [facility] (20 sources) house dust allergenic extract Drug Allergy 2 Other [facility] (13 sources) House dust mite Allergy to substance 9 [facility] (13 sources) Pollen Allergy to substance 2 [facility] (1 source) house dust allergenic extract Drug Allergy 5 [facility] Repository (1 source) Pollen Drug allergy (disorder) 5 [facility] Repository Medications Current Medications Medication Drug [...] 12:00am Start: 05-05-2022 take 1 capsule by [facility] twice daily Gabapentin (Neurontin) 300 mg capsule Active 300 MG PO TWICE A DAY May 05, 2022 12:00am icosapent ethyl 1000 mg oral capsule (20 sources) Start: 02-08-2022 Lactobac. Rhamnosus Gg-Inulin ([facility] [employer] [facility]) 12 billion cell -200 mg capsule (1 source) Start: 03-11-2022 take 1 capsule by mouth once daily Lactobac. Rhamnosus Gg-Inulin ([facility] [employer] [facility]) 12 billion cell -200 mg capsule Active [...] mouth twice daily take 1 capsule by [facility] every twenty-four hours in the morning tamsulosin [...] MG PO Q12H February 08, 2022 12:00am Dumxl-Muxr-Bgqhh-Collag-Mv-M in (Edgar (With Collagen)) 7-7-1.5 gram Powder In Packet (20 sources) Start: 04-30-2022 End: 08-14-2023 Wzqeg-Bpbp-Oqoad-Collag-Mv-M in (Edgar (With Collagen)) 7-7-1.5 gram Powder In Packet Discontinued 1 NMA PO TWICE DAILY WITH MEALS 60 30 2 April 30, 2022 12:00am August 14, 2023 9:03am Start: 04-30-2022 End: 08-14-2023 Adhcl-Wejq-Xpmpg-Collag-Mv-M in (Edgar (With Collagen)) 7-7-1.5 gram Powder In Packet Discontinued 1 NMA PO TWICE DAILY WITH MEALS 60 30 2 April 30, 2022 1:00am August 14, 2023 10:03am Start: 04-30-2022 End: 08-14-2023 Ibaru-Umte-Oslht-Collag-Mv-M in (Edgar (With Collagen)) 7-7-1.5 gram Powder In Packet Discontinued 1 NMA PO TWICE DAILY WITH MEALS 60 30 April 30, 2022 1:00am August 14, 2023 10:03am Start: 04-30-2022 Zfcwo-Aszb-Wyh ef-Cldqpr-Fo-Min (Edgar (With Collagen)) 7-7-1.5 gram Powder In Packet Active 1 PACKET PO TWICE DAILY WITH MEALS 60 April 30, 2022 1:00am Start: 04-30-2022 Taaal-Iqwt-Iuv je-Hrrsfk-Jt-Min (Edgar (With Collagen)) 7-7-1.5 gram Powder In [...] R: Advised will reach out to provider linesperson. Georgina verbalizes understanding and plan. 19:02: 2nd level triage. Paged linesperson provider Mark Zepeda. 19:04 Dr. Zepeda called [...] Protocols used: Information Only Call - No Goxixu-DHDOS-OJ Normal [facility] SHS Culture, Blood (WB)on 2024 CUB Blood cultures x2, from two different sites No growth in 5 days. Normal [facility] Comment on above: Performed By: #### M 200.1000 ####[facility] [address] [place], [address] Urine Cultureon 01-20-2025 URC Normal [facility] Comment on above: Performed By: #### M 100.2200 ####[facility] [address] [place], [address] Absolute lymphocyte countOrd ered By: Basilio Dill on 01-19-2025 Lymphocytes Auto (Unsp spec) [#/Vol] 1.89 10*3/uL 0.83-4.51 [facility] Absolute neutrophil countOrd ered By: Basilio Dill on 01-19-2025 Neutrophils (Bld) [#/Vol] 5.6 10*3/uL 2.0-7.7 [facility] Anion gap in Serum or Plasma Ordered By: Basilio Dill on 01-19-2025 Anion gap [Moles/Vol] 12 mmol/L 08-11 [facility] Automated lymphocyte count a s percentage of total leukocytesOrdered By: Basilio Dill on 01-19-2025 Lymphocytes/100 WBC Auto (Unsp spec) 21.6 % [facility] BUN/creatinine ratioOrdered By: Basilio Dill on 01-19-2025 Urea nitrogen/Creatinine [Mass ratio] 20.0 mg/mg 01-16 [facility] Basic Metabolic Profile (BMP )on 01-19-2025 BUN/CRE 20.0 RATIO Normal 01-16 [facility] Comment on above: Performed By: #### L 500.2500, L100.0100 ####[facility] [address] [place], [address] ECRCL 100.25 ml/min Normal 50-250 [facility] Comment on above: Performed By: #### L 500.2500, L100.0100 ####[facility] [address] [place], [address] GAP 12 Normal - [facility] Comment on above: Performed By: #### L 500.2500, L100.0100 ####[facility] [address] [place], [address] Potassium [Moles/Vol] 4.2 mmol/L Normal 3.3-5.1 [facility] Comment on above: Performed By: #### L 500.2500, L100.0100 ####[facility] [address] [place], [address] Basophil percentageOrdered B y: Basilio Dill on 01-19-2025 Basophils/100 WBC (Bld) 0.7 % 0-1 [facility] CBC W/Diff, Automatedon 12-29 Absolute Lymph 1.89 X10 3/uL Normal 0.83-4.51 [facility] Comment on above: Performed By: #### L 500.2500, L100.0100 ####[facility] [address] [place], [address] Absolute Neut 5.6 X10 3/uL Normal 2.0-7.7 [facility] Comment on above: Performed By: #### L 500.2500, L100.0100 ####[facility] [address] [place], [address] Basophils/100 WBC (Bld) 0.7 % Normal 0-1 [facility] Comment on above: Performed By: #### L 500.2500, L100.0100 ####[facility] [address] [place], [address] Eosinophils/100 WBC (Bld) 2.6 % Normal 0-5 [facility] Comment on above: Performed By: #### L 500.2500, L100.0100 ####[facility] [address] [place], [address] Erythrocyte distribution width (RBC) [Ratio] 16.5 % High 11.6-14.6 [facility] Comment on above: Performed By: #### L 500.2500, L100.0100 ####[facility] [address] [place], [address] Hematocrit (Bld) [Volume fraction] 39.8 % Low 40-54 [facility] Comment on above: Performed By: #### L 500.2500, L100.0100 ####[facility] [address] [place], [address] Hemoglobin (Bld) [Mass/Vol] 12.5 g/dL Low 13.0-16.5 [facility] Comment on above: Performed By: #### L 500.2500, L100.0100 ####[facility] [address] [place], [address] IG% 1.000 High 0.0-0.9 [facility] Comment on above: Result Comment: IG% - Immature Granulocytes (promyelocytes, myelocytes andmetamyelocytes) > 1% indicates that a LEFT SHIFT is Present. Performed By: #### L 500.2500, L100.0100 ####[facility] [address] [place], [address] Lymphocytes/100 WBC (Bld) 21.6 % Normal 19-41 [facility] Comment on above: Performed By: #### L 500.2500, L100.0100 ####[facility] [address] [place], [address] MCH (RBC) [Entitic mass] 26.9 pg Low 27.0-32.0 [facility] Comment on above: Performed By: #### L 500.2500, L100.0100 ####[facility] [address] [place], [address] MCHC (RBC) [Mass/Vol] 31.4 g/dL Low 32-36 [facility] Comment on above: Performed By: #### L 500.2500, L100.0100 ####[facility] [address] [place], [address] MCV (RBC) [Entitic vol] 85.6 fL Normal 80-94 [facility] Comment on above: Performed By: #### L 500.2500, L100.0100 ####[facility] [address] [place], [address] Monocytes/100 WBC (Bld) 10.1 % High 0-10 [facility] Comment on above: Performed By: #### L 500.2500, L100.0100 ####[facility] [address] [place], [address] Neutrophils/100 WBC (Bld) 64.0 % Normal 47-70 [facility] Comment on above: Performed By: #### L 500.2500, L100.0100 ####[facility] [address] [place], [address] Nucleated RBC (Bld) [#/Vol] 0 10*3/uL Normal 0-5 [facility] Comment on above: Performed By: #### L 500.2500, L100.0100 ####[facility] [address] [place], [address] Platelet mean volume (Bld) [Entitic vol] 9.6 fL Normal 6.2-12.0 [facility] Comment on above: Performed By: #### L 500.2500, L100.0100 ####[facility] [address] [place], [address] Platelets (Bld) [#/Vol] 421 10*3/uL Normal 150-450 [facility] Comment on above: Performed By: #### L 500.2500, L100.0100 ####[facility] [address] [place], [address] RBC (Bld) [#/Vol] 4.65 10*6/uL Normal 4.6-6.2 [facility] Comment on above: Performed By: #### L 500.2500, L100.0100 ####[facility] [address] [place], [address] RDW SD 51.1 fl High 35.1-43.9 [facility] Comment on above: Performed By: #### L 500.2500, L100.0100 ####[facility] [address] [place], [address] WBC (Bld) [#/Vol] 8.8 10*3/uL Normal 4.4-11.0 [facility] Comment on above: Performed By: #### L 500.2500, L100.0100 ####[facility] [address] [place], [address] Carbon dioxide, total [Moles /volume] in Central venous bloodOrdered By: Basilio Dill on 01-19-2025 CO2 [Moles/Vol] 25.1 mmol/L Normal 21.0-32.0 [facility] Comment on above: Performed By: #### L 500.2500, L100.0100 ####[facility] [address] [place], [address] Chloride assayOrdered By: Shaina Dill on 01-19-2025 Chloride [Moles/Vol] 99 mmol/L Normal 98-108 [facility] Comment on above: Performed By: #### L 500.2500, L100.0100 ####[facility] [address] [place], [address] Eosinophil percentageOrdered By: Basilio Dill on 01-19-2025 Eosinophils/100 WBC (Bld) 2.6 % 0-5 [facility] Erythrocyte distribution wid th ratioOrdered By: Basilio Dill on 01-19-2025 Erythrocyte distribution width (RBC) [Ratio] 16.5 % High 11.6-14.6 [facility] Erythrocyte distribution wid th standard deviationOrdered By: Basilio Dill on 01-19-2025 Erythrocyte distribution width (RBC) [Ratio] 51.1 fl High 35.1-43.9 [facility] Glomerular filtration rate ( GFR) estimation/1.73 sq m using serum, plasma, or whole bOrdered By: Basilio Dill on 01-19-2025 GFR/1.73 sq M.predicted among non-blacks MDRD (S/P/Bld) [Vol rate/Area] 106 mL/min/{1.73_m2} Normal >60 [facility] Comment on above: mL/min/1.73m2 CKD-EP I Creatinine Equation (2020) Result Comment: mL/m in/1.73m2 CKD-EPI Creatinine Equation (2020) Performed By: #### L 500.2500, L100.0100 ####[facility] [address] [place], [address] Hematocrit Auto (Bld) [Volum e fraction]Ordered By: Basilio Dill on 01-19-2025 Hematocrit (Bld) [Volume fraction] 39.8 % Low 40-54 [facility] Hemoglobin measurementOrdere d By: Basilio Dill on 01-19-2025 Hemoglobin (Bld) [Mass/Vol] 12.5 g/dL Low 13.0-16.5 [facility] Immature granulocytes/100 WB C Auto (Bld)Ordered By: Basilio Dill on 01-19-2025 Immature granulocytes/100 WBC (Bld) 1.000 % High 0.0-0.9 [facility] Comment on above: IG% - Immature Granu locytes (promyelocytes, myelocytes and metamyelocytes) > 1% indicates that a LEFT SHIFT is Present. MCV (mean corpuscular volume ) determinationOrdered By: Basilio Dill on 01-19-2025 MCV (RBC) [Entitic vol] 85.6 fL 80-94 [facility] MR/CON.PCM.PAon 01-19-2025 MR/CON.PCM.PA Normal [facility] Mean corpuscular hemoglobin (MCH) determinationOrdered By: Basilio Dill on 01-19-2025 MCH (RBC) [Entitic mass] 26.9 pg Low 27.0-32.0 [facility] Mean corpuscular hemoglobin concentration (MCHC) determinationOrdered By: Basilio Dill on 01-19-2025 MCHC (RBC) [Mass/Vol] 31.4 g/dL Low 32-36 [facility] Mean platelet volume determi nationOrdered By: Basilio Dill on 01-19-2025 Platelet mean volume (Bld) [Entitic vol] 9.6 fL 6.2-12.0 [facility] Monocyte percentageOrdered B y: Basilio Dill on 01-19-2025 Monocytes/100 WBC (Bld) 10.1 % High 0-10 [facility] Neutrophil percentageOrdered By: Basilio Dill on 01-19-2025 Neutrophils/100 WBC (Bld) 64.0 % 47-70 [facility] Nucleated red blood cell per centageOrdered By: Basilio Dill on 01-19-2025 Nucleated RBC/100 WBC (Bld) [Ratio] 0 % 0-5 [facility] Platelet countOrdered By: Shaina Dill on 01-19-2025 Platelets (Bld) [#/Vol] 421 10*3/uL 150-450 [facility] Potassium measurement (mass/ volume)Ordered By: Basilio Dill on 01-19-2025 Potassium (Unsp spec) [Mass/Vol] 4.2 mmol/L 3.3-5.1 [facility] RBC Auto (Bld) [#/Vol]Ordere d By: Basilio Dill on 01-19-2025 RBC (Bld) [#/Vol] 4.65 10*6/uL 4.6-6.2 [facility] Serum creatinine measurement (mass/volume)Ordered By: Basilio Dill on 01-19-2025 Creatinine [Mass/Vol] 0.58 mg/dL Low 0.70-1.20 [facility] Comment on above: Performed By: #### L 500.2500, L100.0100 ####[facility] [address] [place], [address] Serum glucose measurement (m ass/volume)Ordered By: Basilio Dill on 01-19-2025 Glucose [Mass/Vol] 174 mg/dL High 70-99 [facility] Comment on above: Performed By: #### L 500.2500, L100.0100 ####[facility] [address] [place], [address] Serum or plasma calcium marlyn urement (mass/volume)Ordered By: Basilio Dill on 01-19-2025 Calcium [Mass/Vol] 9.3 mg/dL Normal 7.6-11.0 [facility] Comment on above: Performed By: #### L 500.2500, L100.0100 ####[facility] [address] [place], [address] Serum or plasma urea nitroge n measurement (mass/volume)Ordered By: Basilio Dill on 01-19-2025 Urea nitrogen [Mass/Vol] 12 mg/dL Normal 4-19 [facility] Comment on above: Performed By: #### L 500.2500, L100.0100 ####[facility] [address] [place], [address] Sodium levelOrdered By: Basilio Dill on 01-19-2025 Sodium [Moles/Vol] 136 mmol/L Normal 133-145 [facility] Comment on above: Performed By: #### L 500.2500, L100.0100 ####[facility] [address] [place], [address] White blood cell (WBC) count Ordered By: Basilio Dill on 01-19-2025 WBC (Bld) [#/Vol] 8.8 10*3/uL 4.4-11.0 [facility] Basic Metabolic Profile (BMP )on 01-18-2025 BUN/CRE 17.8 RATIO Normal 10-20 [facility] Comment on above: Performed By: #### L 500.2500, L100.0100 ####[facility] [address] [place], [address] Calcium [Mass/Vol] 8.7 mg/dL Normal 7.6-11.0 [facility] Comment on above: Performed By: #### L 500.2500, L100.0100 ####[facility] [address] [place], [address] Chloride [Moles/Vol] 102 mmol/L Normal 98-108 [facility] Comment on above: Performed By: #### L 500.2500, L100.0100 ####[facility] [address] [place], [address] CO2 [Moles/Vol] 23.6 mmol/L Normal 21.0-32.0 [facility] Comment on above: Performed By: #### L 500.2500, L100.0100 ####[facility] [address] [place], [address] Creatinine [Mass/Vol] 0.52 mg/dL Low 0.70-1.20 [facility] Comment on above: Performed By: #### L 500.2500, L100.0100 ####[facility] [address] [place], [address] ECRCL 100.25 ml/min Normal 50-250 [facility] Comment on above: Performed By: #### L 500.2500, L100.0100 ####[facility] [address] [place], [address] GAP 10 Normal 5-15 [facility] Comment on above: Performed By: #### L 500.2500, L100.0100 ####[facility] [address] [place], [address] GFR/1.73 sq M.predicted among non-blacks MDRD (S/P/Bld) [Vol rate/Area] 110 mL/min/{1.73_m2} Normal >60 [facility] Comment on above: Result Comment: mL/m in/1.73m2 CKD-EPI Creatinine Equation (2020) Performed By: #### L 500.2500, L100.0100 ####[facility] [address] [place], [address] Glucose [Mass/Vol] 165 mg/dL High 70-99 [facility] Comment on above: Performed By: #### L 500.2500, L100.0100 ####[facility] [address] [place], [address] Potassium [Moles/Vol] 4.6 mmol/L Normal 3.3-5.1 [facility] Comment on above: Performed By: #### L 500.2500, L100.0100 ####[facility] [address] [place], [address] Sodium [Moles/Vol] 135 mmol/L Normal 133-145 [facility] Comment on above: Performed By: #### L 500.2500, L100.0100 ####[facility] [address] [place], [address] Urea nitrogen [Mass/Vol] 9 mg/dL Normal 4-19 [facility] Comment on above: Performed By: #### L 500.2500, L100.0100 ####[facility] [address] [place], [address] CBC W/Diff, Automatedon 10-2 -2024 Absolute Lymph 1.71 X10 3/uL Normal 0.83-4.51 [facility] Comment on above: Performed By: #### L 500.2500, L100.0100 ####[facility] [address] [place], [address] Absolute Neut 5.8 X10 3/uL Normal 2.0-7.7 [facility] Comment on above: Performed By: #### L 500.2500, L100.0100 ####[facility] [address] [place], [address] Basophils/100 WBC (Bld) 0.8 % Normal 0-1 [facility] Comment on above: Performed By: #### L 500.2500, L100.0100 ####[facility] [address] [place], [address] Eosinophils/100 WBC (Bld) 3.4 % Normal 0-5 [facility] Comment on above: Performed By: #### L 500.2500, L100.0100 ####[facility] [address] [place], [address] Erythrocyte distribution width (RBC) [Ratio] 16.8 % High 11.6-14.6 [facility] Comment on above: Performed By: #### L 500.2500, L100.0100 ####[facility] [address] [place], [address] Hematocrit (Bld) [Volume fraction] 36.8 % Low 40-54 [facility] Comment on above: Performed By: #### L 500.2500, L100.0100 ####[facility] [address] [place], [address] Hemoglobin (Bld) [Mass/Vol] 11.4 g/dL Low 13.0-16.5 [facility] Comment on above: Performed By: #### L 500.2500, L100.0100 ####[facility] [address] [place], [address] IG% 0.900 Normal 0.0-0.9 [facility] Comment on above: Result Comment: IG% - Immature Granulocytes (promyelocytes, myelocytes andmetamyelocytes) > 1% indicates that a LEFT SHIFT is Present. Performed By: #### L 500.2500, L100.0100 ####[facility] [address] [place], [address] Lymphocytes/100 WBC (Bld) 19.9 % Normal 19-41 [facility] Comment on above: Performed By: #### L 500.2500, L100.0100 ####[facility] [address] [place], [address] MCH (RBC) [Entitic mass] 27.3 pg Normal 27.0-32.0 [facility] Comment on above: Performed By: #### L 500.2500, L100.0100 ####[facility] [address] [place], [address] MCHC (RBC) [Mass/Vol] 31.0 g/dL Low 32-36 [facility] Comment on above: Performed By: #### L 500.2500, L100.0100 ####[facility] [address] [place], [address] MCV (RBC) [Entitic vol] 88.0 fL Normal 80-94 [facility] Comment on above: Performed By: #### L 500.2500, L100.0100 ####[facility] [address] [place], [address] Monocytes/100 WBC (Bld) 7.8 % Normal 0-10 [facility] Comment on above: Performed By: #### L 500.2500, L100.0100 ####[facility] [address] [place], [address] Neutrophils/100 WBC (Bld) 67.2 % Normal 47-70 [facility] Comment on above: Performed By: #### L 500.2500, L100.0100 ####[facility] [address] [place], [address] Nucleated RBC (Bld) [#/Vol] 0 10*3/uL Normal 0-5 [facility] Comment on above: Performed By: #### L 500.2500, L100.0100 ####[facility] [address] [place], [address] Platelet mean volume (Bld) [Entitic vol] 9.7 fL Normal 6.2-12.0 [facility] Comment on above: Performed By: #### L 500.2500, L100.0100 ####[facility] [address] [place], [address] Platelets (Bld) [#/Vol] 398 10*3/uL Normal 150-450 [facility] Comment on above: Performed By: #### L 500.2500, L100.0100 ####[facility] [address] [place], [address] RBC (Bld) [#/Vol] 4.18 10*6/uL Low 4.6-6.2 [facility] Comment on above: Performed By: #### L 500.2500, L100.0100 ####[facility] [address] [place], [address] RDW SD 54.1 fl High 35.1-43.9 [facility] Comment on above: Performed By: #### L 500.2500, L100.0100 ####[facility] [address] [place], [address] WBC (Bld) [#/Vol] 8.6 10*3/uL Normal 4.4-11.0 [facility] Comment on above: Performed By: #### L 500.2500, L100.0100 ####[facility] [address] [place], [address] Electrocardiogram reportOrde red By: Kari Ortega on 01-18-2025 EKG study [facility] Cardiovascular Services [address] [place] [address] 12 Lead EKG 01/17/25 1035 MR#: [id number] Acct: [id number] Name: JORGE COVINGTON Rep #:[id number] : 1955 69 From: Kari cartwright [...] QRS Borderline ECG Confirmed by Kari Ortega ([id number]), book editor SARAH CEVALLOS ([id number]) on :40:41 PM Referred By: Confirmed By: Kari Ortega 01/18/25 1340 Date _ Kari Ortega MD CC: Dr. Basilio Dill DO; Dr. Brian Cardona MD; Dr. Hebert Saavedra MD ~ Signed [facility] Other Phone: 12 Lead EKGon 01-17-2025 12 Lead EKG Normal [facility] Bilirubin Test strip Ql (U)O rdered By: Hebert Saavedra on 01-17-2025 Bilirubin Ql (U) Negative Negative [facility] Bilirubin, totalOrdered By: Hebert Saavedra on 01-17-2025 Bilirubin [Mass/Vol] mg/dL 0.00-1.30 [facility] Blood cultureOrdered By: Hebert Saavedra on 01-17-2025 Bacteria identified Cx Nom (Bld) No growth in 5 days. [facility] CBC W/Diff, Automatedon 12-29 Absolute Lymph 1.72 X10 3/uL Normal 0.83-4.51 [facility] Comment on above: Performed By: #### L 100.0100, L500.4050, L503.6005 ####[facility] [address] [place], [address] Absolute Neut 5.1 X10 3/uL Normal 2.0-7.7 [facility] Comment on above: Performed By: #### L 100.0100, L500.4050, L503.6005 ####[facility] [address] [place], [address] Basophils/100 WBC (Bld) 0.7 % Normal 0-1 [facility] Comment on above: Performed By: #### L 100.0100, L500.4050, L503.6005 ####[facility] [address] [place], [address] Eosinophils/100 WBC (Bld) 4.1 % Normal 0-5 [facility] Comment on above: Performed By: #### L 100.0100, L500.4050, L503.6005 ####[facility] [address] [place], [address] Erythrocyte distribution width (RBC) [Ratio] 17.2 % High 11.6-14.6 [facility] Comment on above: Performed By: #### L 100.0100, L500.4050, L503.6005 ####[facility] [address] [place], [address] Hematocrit (Bld) [Volume fraction] 41.0 % Normal 40-54 [facility] Comment on above: Performed By: #### L 100.0100, L500.4050, L503.6005 ####[facility] [address] [place], [address] Hemoglobin (Bld) [Mass/Vol] 13.0 g/dL Normal 13.0-16.5 [facility] Comment on above: Performed By: #### L 100.0100, L500.4050, L503.6005 ####[facility] [address] [place], [address] IG% 1.000 High 0.0-0.9 [facility] Comment on above: Result Comment: IG% - Immature Granulocytes (promyelocytes, myelocytes andmetamyelocytes) > 1% indicates that a LEFT SHIFT is Present. Performed By: #### L 100.0100, L500.4050, L503.6005 ####[facility] [address] [place], [address] Lymphocytes/100 WBC (Bld) 21.3 % Normal 19-41 [facility] Comment on above: Performed By: #### L 100.0100, L500.4050, L503.6005 ####[facility] [address] [place], [address] MCH (RBC) [Entitic mass] 27.8 pg Normal 27.0-32.0 [facility] Comment on above: Performed By: #### L 100.0100, L500.4050, L503.6005 ####[facility] [address] [place], [address] MCHC (RBC) [Mass/Vol] 31.7 g/dL Low 32-36 [facility] Comment on above: Performed By: #### L 100.0100, L500.4050, L503.6005 ####[facility] [address] [place], [address] MCV (RBC) [Entitic vol] 87.8 fL Normal 80-94 [facility] Comment on above: Performed By: #### L 100.0100, L500.4050, L503.6005 ####[facility] [address] [place], [address] Monocytes/100 WBC (Bld) 9.5 % Normal 0-10 [facility] Comment on above: Performed By: #### L 100.0100, L500.4050, L503.6005 ####[facility] [address] [place], [address] Neutrophils/100 WBC (Bld) 63.4 % Normal 47-70 [facility] Comment on above: Performed By: #### L 100.0100, L500.4050, L503.6005 ####[facility] [address] [place], [address] Nucleated RBC (Bld) [#/Vol] 0 10*3/uL Normal 0-5 [facility] Comment on above: Performed By: #### L 100.0100, L500.4050, L503.6005 ####[facility] [address] [place], [address] Platelet mean volume (Bld) [Entitic vol] 9.8 fL Normal 6.2-12.0 [facility] Comment on above: Performed By: #### L 100.0100, L500.4050, L503.6005 ####[facility] [address] [place], [address] Platelets (Bld) [#/Vol] 378 10*3/uL Normal 150-450 [facility] Comment on above: Performed By: #### L 100.0100, L500.4050, L503.6005 ####[facility] [address] [place], [address] RBC (Bld) [#/Vol] 4.67 10*6/uL Normal 4.6-6.2 [facility] Comment on above: Performed By: #### L 100.0100, L500.4050, L503.6005 ####[facility] [address] [place], [address] RDW SD 54.6 fl High 35.1-43.9 [facility] Comment on above: Performed By: #### L 100.0100, L500.4050, L503.6005 ####[facility] [address] [place], [address] WBC (Bld) [#/Vol] 8.1 10*3/uL Normal 4.4-11.0 [facility] Comment on above: Performed By: #### L 100.0100, L500.4050, L503.6005 ####[facility] [address] [place], [address] Chest PA and Lateralon 01-17 Chest PA and Lateral Normal [facility] Comprehensive Metabolic Prof ilon 01-17-2025 Albumin [Mass/Vol] 3.5 g/dL Normal 3.4-4.8 [facility] Comment on above: Performed By: #### L 100.0100, L500.4050, L503.6005 ####[facility] [address] [place], [address] Albumin/Globulin [Mass ratio] 0.9 {ratio} Normal 0.9-2.4 [facility] Comment on above: Performed By: #### L 100.0100, L500.4050, L503.6005 ####[facility] [address] [place], [address] ALK PHOS 121 U/L Normal 40-129 [facility] Comment on above: Performed By: #### L 100.0100, L500.4050, L503.6005 ####[facility] [address] [place], [address] ALT [Catalytic activity/Vol] 21 U/L Normal <=46 [facility] Comment on above: Performed By: #### L 100.0100, L500.4050, L503.6005 ####[facility] [address] [place], [address] AST [Catalytic activity/Vol] 18 U/L Normal <=37 [facility] Comment on above: Performed By: #### L 100.0100, L500.4050, L503.6005 ####[facility] [address] [place], [address] BUN/CRE 18.9 RATIO Normal 10-20 [facility] Comment on above: Performed By: #### L 100.0100, L500.4050, L503.6005 ####[facility] [address] [place], [address] Calcium [Mass/Vol] 9.2 mg/dL Normal 7.6-11.0 [facility] Comment on above: Performed By: #### L 100.0100, L500.4050, L503.6005 ####[facility] [address] [place], [address] Chloride [Moles/Vol] 101 mmol/L Normal 98-108 [facility] Comment on above: Performed By: #### L 100.0100, L500.4050, L503.6005 ####[facility] [address] [place], [address] CO2 [Moles/Vol] 23.7 mmol/L Normal 21.0-32.0 [facility] Comment on above: Performed By: #### L 100.0100, L500.4050, L503.6005 ####[facility] [address] [place], [address] Creatinine [Mass/Vol] 0.59 mg/dL Low 0.70-1.20 [facility] Comment on above: Performed By: #### L 100.0100, L500.4050, L503.6005 ####[facility] [address] [place], [address] ECRCL 102.95 ml/min Normal 50-250 [facility] Comment on above: Performed By: #### L 100.0100, L500.4050, L503.6005 ####[facility] [address] [place], [address] GAP 11 Normal 5-15 [facility] Comment on above: Performed By: #### L 100.0100, L500.4050, L503.6005 ####[facility] [address] [place], [address] GFR/1.73 sq M.predicted among non-blacks MDRD (S/P/Bld) [Vol rate/Area] 106 mL/min/{1.73_m2} Normal >60 [facility] Comment on above: Result Comment: mL/m in/1.73m2 CKD-EPI Creatinine Equation (2020) Performed By: #### L 100.0100, L500.4050, L503.6005 ####[facility] [address] [place], [address] Globulin (S) [Mass/Vol] 3.8 g/dL Normal 2.2-4.2 [facility] Comment on above: Performed By: #### L 100.0100, L500.4050, L503.6005 ####[facility] [address] [place], [address] Glucose [Mass/Vol] 258 mg/dL High 70-99 [facility] Comment on above: Performed By: #### L 100.0100, L500.4050, L503.6005 ####[facility] [address] [place], [address] Potassium [Moles/Vol] 4.6 mmol/L Normal 3.3-5.1 [facility] Comment on above: Performed By: #### L 100.0100, L500.4050, L503.6005 ####[facility] [address] [place], [address] Sodium [Moles/Vol] 136 mmol/L Normal 133-145 [facility] Comment on above: Performed By: #### L 100.0100, L500.4050, L503.6005 ####[facility] [address] [place], [address] T BILI < 0.15 Normal 0.00-1.30 [facility] Comment on above: Performed By: #### L 100.0100, L500.4050, L503.6005 ####[facility] [address] [place], [address] T PROT 7.2 g/dL Normal 5.9-8.4 [facility] Comment on above: Performed By: #### L 100.0100, L500.4050, L503.6005 ####[facility] [address] [place], [address] Urea nitrogen [Mass/Vol] 11 mg/dL Normal 4-19 [facility] Comment on above: Performed By: #### L 100.0100, L500.4050, L503.6005 ####[facility] [address] [place], [address] Emergency Department Summary on 01-17-2025 Emergency Department Summary Normal [facility] H AND P Exam - Hospitaliston 01-17-2025 H&P Exam - Hospitalist Normal [facility] Ketones Test strip Ql (U)Ord ered By: Hebert Saavedra on 01-17-2025 Ketones Ql (U) Negative Negative [facility] Laboratory - Chemistry and C hemistry - challengeOrdered By: Hebert Saavedra on 01-17-2025 AST [Catalytic activity/Vol] 18 U/L <38 [facility] Lactic Acidon 01-17-2025 Lactate [Moles/Vol] 2.3 mmol/L Invalid Interpretation Code 0.0-2.0 [facility] Comment on above: Result Comment: Crit ical Result(s) Called at:01/17/25 1413 by:?KJ Results read back by same. Performed By: #### L 503.6005 ####[facility] [address] [place], [address] Lactate [Moles/Vol] 2.1 mmol/L Invalid Interpretation Code 0.0-2.0 [facility] Comment on above: Order Comment: Y Result Comment: Crit ical Result(s) Called at 1156: by: HELEN GREWAL. ??Results read back by same. Performed By: #### L 100.0100, L500.4050, L503.6005 ####[facility] [address] [place], [address] Lactic acid measurementOrder ed By: Hebert Saavedra on 01-17-2025 Lactate [Moles/Vol] 2.3 mmol/L Critically high 0.0-2.0 [facility] Comment on above: Critical Result(s) C alled at:01/17/25 1413 by: RUFINA BLACKWELL Results read back by same. Microscopic analysis of urin e for red blood cells (RBC)Ordered By: Hebert Saavedra on 01-17-2025 Microscopic analysis of urine for red blood cells (RBC) 0 SEEN /hpf 0-5 [facility] Mucus LM Ql (Urine sed)Order ed By: Hebert Saavedra on 01-17-2025 Mucus Ql (Urine sed) 0 SEEN /hpf [facility] Nitrite Test strip Ql (U)Ord ered By: Hebert Saavedra on 01-17-2025 Nitrite Ql (U) Positive High Negative [facility] Protein Test strip Ql (U)Ord ered By: Hebert Saavedra on 01-17-2025 Protein Ql (U) 30 mg/dl High Negative [facility] Serum globulin measurementOr dered By: Hebert Saavedra on 01-17-2025 Globulin (S) [Mass/Vol] 3.8 g/dL 2.2-4.2 [facility] Serum or plasma alanine orozco otransferase (ALT) measurementOrdered By: Hebert Saavedra on 01-17-2025 ALT [Catalytic activity/Vol] 21 U/L <47 [facility] Serum or plasma albumin marlyn urement (mass/volume)Ordered By: Hebert Saavedra on 01-17-2025 Albumin [Mass/Vol] 3.5 g/dL 3.4-4.8 [facility] Serum or plasma albumin/glob ulin mass ratioOrdered By: Hebertgerman Saavedra on 01-17-2025 Albumin/Globulin [Mass ratio] 0.9 {ratio} 0.9-2.4 [facility] Serum or plasma alkaline marisol sphatase measurementOrdered By: Hebert Saavedra on 01-17-2025 ALP [Catalytic activity/Vol] 121 U/L 40-129 [facility] Squamous epithelial cells de tection in urine sediment by light microscopyOrdered By: Hebert Quentin on 01-17-2025 Epithelial cells.squamous LM Ql (Urine sed) 0 SEEN /hpf 0-5 [facility] Total proteinOrdered By: Hebert Saavedra on 01-17-2025 Protein [Mass/Vol] 7.2 g/dL 5.9-8.4 [facility] Urinalysis, Completeon 01-17 BACTERIA 2+ /hpf Normal None Seen [facility] Comment on above: Order Comment: LACIE CTOR TO SPECIFY Performed By: #### L 400.0001 ####[facility] [address] [place] [address] WBC 10-25 SEEN Normal [address] [place] [address] Comment on above: Order Comment: LACIE CTOR TO SPECIFY Performed By: #### L 400.0001 ####[facility] [address] [place] [address] EPI,SQUAMOUS 0 SEEN Normal [address] [place] [address] Comment on above: Order Comment: LACIE CTOR TO SPECIFY Performed By: #### L 400.0001 ####[facility] [address] [place], [address] Mucus Ql (Urine sed) 0 SEEN Normal [facility] Comment on above: Order Comment: LACIE CTOR TO SPECIFY Performed By: #### L 400.0001 ####[facility] [address] [facility] [address] RBC 0 SEEN Normal 0-5 [facility] Comment on above: Order Comment: LACIE CTOR TO SPECIFY Performed By: #### L 400.0001 ####[facility] [address] [facility] [address] Urine clarityOrdered By: Hebert Saavedra on 01-17-2025 Clarity (U) Cloudy Clear [facility] Urine color determinationOrd ered By: Hebert Saavedra on 01-17-2025 Color (U) Yellow Yellow [facility] Urine cultureOrdered By: Hebert Saavedra on 01-17-2025 Bacteria identified Cx Nom (U) Citrobacter freundii Abnormal [facility] Bacteria identified Cx Nom (U) Providencia alcalifaciens Abnormal [facility] Urine glucose detectionOrder ed By: Hebert Saavedra on 01-17-2025 Glucose Ql (U) Normal mg/dl Normal [facility] Urine leukocyte esterase det ection by dipstickOrdered By: Hebert Saavedra on 01-17-2025 Leukocyte esterase Test strip Ql (U) 500 /ul High Negative [facility] Urine pHOrdered By: Hebert porter on 01-17-2025 pH (U) 6.0 [pH] 5.0 - 8.0 [facility] Urine sediment bacteria coun t by microscopy (number/high power field)Ordered By: Hebert Saavedra on 01-17-2025 Bacteria LM.HPF (Urine sed) [#/Area] 2 /[HPF] None Seen [facility] Urine specific gravity measu rementOrdered By: Hebert Saavedra on 01-17-2025 Specific gravity (U) [Rel density] 1.020 1.002-1.030 [facility] Urine urobilinogen measureme ntOrdered By: Hebertgerman Saavedra on 01-17-2025 Urobilinogen Ql (U) Normal mg/dl Normal [facility] White blood cell countOrdere d By: Hebert Saavedra on 01-17-2025 White blood cell count 10-25 SEEN /hpf 0-5 [facility] Basic Metabolic Profile (BMP )on 01-06-2025 BUN/CRE 19.1 RATIO Normal -20 [facility] Comment on above: Order Comment: CBC W NOT DRAWN THIS VISIT Performed By: #### L 400.2010, L503.0106, L500.2500, L501.5200, L501.9520, M100.2200 ####[facility] [address] [place], [address] Calcium [Mass/Vol] 9.4 mg/dL Normal 7.6-11.0 [facility] Comment on above: Order Comment: CBC W NOT DRAWN THIS VISIT Performed By: #### L 400.2010, L503.0106, L500.2500, L501.5200, L501.9520, M100.2200 ####[facility] [address] [place], [address] Chloride [Moles/Vol] 98 mmol/L Normal 98-108 [facility] Comment on above: Order Comment: CBC W NOT DRAWN THIS VISIT Performed By: #### L 400.2010, L503.0106, L500.2500, L501.5200, L501.9520, M100.2200 ####[facility] [address] [place], [address] CO2 [Moles/Vol] 23.2 mmol/L Normal 21.0-32.0 [facility] Comment on above: Order Comment: CBC W NOT DRAWN THIS VISIT Performed By: #### L 400, L503.0106, L500.2500, L501.5200, L501.9520, M100.2200 ####[facility] [address] [place], [address] Creatinine [Mass/Vol] 0.56 mg/dL Low 0.70-1.20 [facility] Comment on above: Order Comment: CBC W NOT DRAWN THIS VISIT Performed By: #### L 400, L503.0106, L500.2500, L501.5200, L501.9520, M100.2200 ####[facility] [address] [place], [address] GAP 16 High 5-15 [facility] Comment on above: Order Comment: CBC W NOT DRAWN THIS VISIT Performed By: #### L 400, L503.0106, L500.2500, L501.5200, L501.9520, M100.2200 ####[facility] [address] [place], [address] GFR/1.73 sq M.predicted among non-blacks MDRD (S/P/Bld) [Vol rate/Area] 107 mL/min/{1.73_m2} Normal >60 [facility] Comment on above: Order Comment: CBC W NOT DRAWN THIS VISIT Result Comment: mL/m in/1.73m2 CKD-EPI Creatinine Equation (2020) Performed By: #### L 400, L503.0106, L500.2500, L501.5200, L501.9520, M100.2200 ####[facility] [address] [place], [address] Glucose [Mass/Vol] 137 mg/dL High 70-99 [facility] Comment on above: Order Comment: CBC W NOT DRAWN THIS VISIT Performed By: #### L , L503.0106, L500.2500, L501.5200, L501.9520, M100.2200 ####[facility] [address] [place], [address] Potassium [Moles/Vol] 4.6 mmol/L Normal 3.3-5.1 [facility] Comment on above: Order Comment: CBC W NOT DRAWN THIS VISIT Result Comment: Hemo lysis present, Results??could be affected.?? Performed By: #### L 400, L503.0106, L500.2500, L501.5200, L501.9520, M100.2200 ####[facility] [address] [place], [address] Sodium [Moles/Vol] 138 mmol/L Normal 133-145 [facility] Comment on above: Order Comment: CBC W NOT DRAWN THIS VISIT Performed By: #### L , L503.0106, L500.2500, L501.5200, L501.9520, M100.2200 ####[facility] [address] [place], [address] Urea nitrogen [Mass/Vol] 11 mg/dL Normal 4-19 [facility] Comment on above: Order Comment: CBC W NOT DRAWN THIS VISIT Performed By: #### L 400.2010, L503.0106, L500.2500, L501.5200, L501.9520, M100.2200 ####[facility] [address] [place], [address] Magnesiumon 01-06-2025 Magnesium [Mass/Vol] 1.8 mg/dL Normal 1.5-2.2 [facility] Comment on above: Order Comment: CBC W NOT DRAWN THIS VISIT Performed By: #### L 400.2010, L503.0106, L500.2500, L501.5200, L501.9520, M100.2200 ####[facility] [address] [place], [address] Urine Cultureon 01-06-2025 URC Normal [facility] Comment on above: Performed By: #### L 400.2010, L503.0106, L500.2500, L501.5200, L501.9520, M100.2200 ####[facility] [address] [place], [address] Anion gap in Serum or Plasma Ordered By: Biran Cardona on 01-04-2025 Anion gap [Moles/Vol] 16 mmol/L High 5-15 [facility] BUN/creatinine ratioOrdered By: Brian Cardona on 01-04-2025 Urea nitrogen/Creatinine [Mass ratio] 19.1 mg/mg 1020 [facility] Bilirubin Test strip Ql (U)O rdered By: Brian Cardona on 01-04-2025 Bilirubin Ql (U) Negative Negative [facility] Carbon dioxide, total [Moles /volume] in Central venous bloodOrdered By: Brian Cardona on 01-04-2025 CO2 [Moles/Vol] 23.2 mmol/L 21.0-32.0 [facility] Chloride assayOrdered By: Dav Cardona on 01-04-2025 Chloride [Moles/Vol] 98 mmol/L 98-108 [facility] Glomerular filtration rate ( GFR) estimation/1.73 sq m using serum, plasma, or whole bOrdered By: Brian Cardona on 01-04-2025 GFR/1.73 sq M.predicted among non-blacks MDRD (S/P/Bld) [Vol rate/Area] 107 mL/min/{1.73_m2} >60 [facility] Comment on above: mL/min/1.73m2 CKD-EP I Creatinine Equation (2020) Ketones Test strip Ql (U)Ord ered By: Brian Cardona on 01-04-2025 Ketones Ql (U) Negative Negative [facility] Magnesium measurement (mass/ volume)Ordered By: Brian Cardona on 01-04-2025 Magnesium (Unsp spec) [Mass/Vol] 1.8 mg/dL 1.5-2.2 [facility] Nitrite Test strip Ql (U)Ord ered By: Brian Cardona on 01-04-2025 Nitrite Ql (U) Positive High Negative [facility] Potassium measurement (mass/ volume)Ordered By: Brian Cardona on 01-04-2025 Potassium (Unsp spec) [Mass/Vol] 4.6 mmol/L 3.3-5.1 [facility] Comment on above: Hemolysis present, R esults could be affected. Protein Test strip Ql (U)Ord ered By: Brian Cardona on 01-04-2025 Protein Ql (U) 30 mg/dl High Negative [facility] Serum creatinine measurement (mass/volume)Ordered By: Brian Cardona on 01-04-2025 Creatinine [Mass/Vol] 0.56 mg/dL Low 0.70-1.20 [facility] Serum glucose measurement (m ass/volume)Ordered By: Brian Cardona on 01-04-2025 Glucose [Mass/Vol] 137 mg/dL High 70-99 [facility] Serum or plasma calcium marlyn urement (mass/volume)Ordered By: Brian Cardona on 01-04-2025 Calcium [Mass/Vol] 9.4 mg/dL 7.6-11.0 [facility] Serum or plasma urea nitroge n measurement (mass/volume)Ordered By: Brian Cardona on 01-04-2025 Urea nitrogen [Mass/Vol] 11 mg/dL 4-19 [facility] Sodium levelOrdered By: Amol Cardona on 01-04-2025 Sodium [Moles/Vol] 138 mmol/L 133-145 [facility] TSH DL <= 0.005 mIU/L QnOrde red By: Brian Cardona on 01-04-2025 TSH Qn 5.050 uIU/mL High 0.300-4.200 [facility] Thyroid Stim Hormone (TSH)on 01-04-2025 TSH 5.050 uIU/mL High 0.300-4.200 [facility] Comment on above: Order Comment: CBC W NOT DRAWN THIS VISIT Performed By: #### L 400.2010, L503.0106, L500.2500, L501.5200, L501.9520, M100.2200 ####[facility] [address] [place], [address] Urinalysis, Routine (Dipstic k)on 01-04-2025 BILIRUBIN URINE Negative Normal Negative [facility] Comment on above: Order Comment: CLEAN CATCH Performed By: #### L 400.2010, L503.0106, L500.2500, L501.5200, L501.9520, M100.2200 ####[facility] [address] [place], [address] Clarity (U) Turbid Normal Clear [facility] Comment on above: Order Comment: CLEAN CATCH Performed By: #### L 400.2010, L503.0106, L500.2500, L501.5200, L501.9520, M100.2200 ####[facility] [address] [place], [address] Color (U) Straw Normal Yellow [facility] Comment on above: Order Comment: CLEAN CATCH Performed By: #### L 400, L503.0106, L500.2500, L501.5200, L501.9520, M100.2200 ####[facility] [address] [place], [address] GLUCOSE, UR Normal Normal Normal [facility] Comment on above: Order Comment: CLEAN CATCH Performed By: #### L 400.2010, L503.0106, L500.2500, L501.5200, L501.9520, M100.2200 ####[facility] [address] [place], [address] KETONE UR Negative Normal Negative [facility] Comment on above: Order Comment: CLEAN CATCH Performed By: #### L 400.2010, L503.0106, L500.2500, L501.5200, L501.9520, M100.2200 ####[facility] [address] [place], [address] LEUK ESTERASE 500 /ul Abnormal Negative [facility] Comment on above: Order Comment: CLEAN CATCH Performed By: #### L 400, L503.0106, L500.2500, L501.5200, L501.9520, M100.2200 ####[facility] [address] [place], [address] Nitrite Ql (U) Positive Abnormal Negative [facility] Comment on above: Order Comment: CLEAN CATCH Performed By: #### L 400, L503.0106, L500.2500, L501.5200, L501.9520, M100.2200 ####[facility] [address] [place], [address] OCCULT BLOOD-UR 150 /ul Abnormal Negative [facility] Comment on above: Order Comment: CLEAN CATCH Performed By: #### L 400, L503.0106, L500.2500, L501.5200, L501.9520, M100.2200 ####[facility] [address] [place], [address] pH UR 8.0 Normal 5.0 - 8.0 [facility] Comment on above: Order Comment: CLEAN CATCH Performed By: #### L 400, L503.0106, L500.2500, L501.5200, L501.9520, M100.2200 ####[facility] [address] [place], [address] PROT DIPSTX 30 mg/dl Abnormal Negative [facility] Comment on above: Order Comment: CLEAN CATCH Performed By: #### L 400.2010, L503.0106, L500.2500, L501.5200, L501.9520, M100.2200 ####[facility] [address] [place], [address] SP.GR. DIPSTX 1.015 Normal 1.002-1.030 [facility] Comment on above: Order Comment: CLEAN CATCH Performed By: #### L 400.2010, L503.0106, L500.2500, L501.5200, L501.9520, M100.2200 ####[facility] [address] [place], [address] UROBILI Normal Normal Normal [facility] Comment on above: Order Comment: CLEAN CATCH Performed By: #### L 400.2010, L503.0106, L500.2500, L501.5200, L501.9520, M100.2200 ####[facility] [address] [place], [address] Urine clarityOrdered By: Kaleb Cardona on 01-04-2025 Clarity (U) Turbid Clear [facility] Urine color determinationOrd ered By: Brian Cardona on 01-04-2025 Color (U) Straw Yellow [facility] Urine cultureOrdered By: Kaleb Cardona on 01-04-2025 Bacteria identified Cx Nom (U) Klebsiella oxytoca Abnormal [facility] Urine glucose detectionOrder ed By: Brian Cardona on 01-04-2025 Glucose Ql (U) Normal mg/dl Normal [facility] Urine leukocyte esterase det ection by dipstickOrdered By: Brian Cardona on 01-04-2025 Leukocyte esterase Test strip Ql (U) 500 /ul High Negative [facility] Urine pHOrdered By: Brian Cardona on 10-08-2025 pH (U) 8.0 [pH] 5.0 - 8.0 [facility] Urine specific gravity measu rementOrdered By: Brian Cardona on 01-04-2025 Specific gravity (U) [Rel density] 1.015 1.002-1.030 [facility] Urine urobilinogen measureme ntOrdered By: Brian Cardona on 01-04-2025 Urobilinogen Ql (U) Normal mg/dl Normal [facility] Vitamin B12on 01-04-2025 Cobalamin (Vitamin B12) [Mass/Vol] pg/mL Low 180-914 [facility] Comment on above: Order Comment: CBC W NOT DRAWN THIS VISIT Performed By: #### L 400.2011, L503.0106, L500.2500, L501.5200, L501.9520, M100.2200 ####[facility] [address] [facility] [place], [place], [address] Orthopedic Visit Reporton Orthopedic Visit Report Normal [facility] Magnetic resonance imaging r eportOrdered By: Khurram Lamb on 10-16-2024 Study report [facility] Imaging Services [address] [place], [place] [address] Spine Thoracic (Routine) MR#: [id number] Acct: [id number] Name: JORGE COVINGTON Rep #: [id number] : 1955 M [id number] From: Mariola Lamb MD PCP: Dr. Brian Cardona MD Status: RE G CLI Study:Spine Thoracic (Routine) Date of Exam: 10/14/24 Exam# [id number] Ordering Dr: Letitia Quevedo MD PROCEDURE: SPINE [...] and extends inferiorly to T9 Reading Location: [facility] CC: Dr. Edmundo Quevedo MD; Dr. Brian Cardona MD ~ Rug Measurer: Signed [facility] Spine Thoracic (Routine)on 0 10-14-2024 Spine Thoracic (Routine) Normal [facility] Urine Cultureon 09-30-2024 URC Normal [facility] Comment on above: Performed By: #### M 100.2200, L4.2010 ####[facility] [address] [place], [address] Bilirubin Test strip Ql (U)O rdered By: RIKKI CASAS on 09-28-2024 Bilirubin Ql (U) Negative Negative [facility] Ketones Test strip Ql (U)Ord ered By: RIKKI CASAS on 09-28-2024 Ketones Ql (U) Negative Negative [facility] Nitrite Test strip Ql (U)Ord ered By: RIKKI CASAS on 09-28-2024 Nitrite Ql (U) Negative Negative [facility] Protein Test strip Ql (U)Ord ered By: RIKKI CASAS on 09-28-2024 Protein Ql (U) 30 mg/dl High Negative [facility] Urinalysis, Routine (Dipstic k)on 09-28-2024 BILIRUBIN URINE Negative Normal Negative [facility] Comment on above: Order Comment: LISA TER SPECIMEN Performed By: #### M 100.2200, L400.2010 ####[facility] [address] [place], [address] Clarity (U) Sl. Cloudy Normal Clear [facility] Comment on above: Order Comment: LISA TER SPECIMEN Performed By: #### M 100.2200, L400.2010 ####[facility] [address] [place], [address] Color (U) Yellow Normal Yellow [facility] Comment on above: Order Comment: LISA TER SPECIMEN Performed By: #### M , L4 ####[facility] [address] [place], [address] GLUCOSE, UR Normal Normal Normal [facility] Comment on above: Order Comment: LISA TER SPECIMEN Performed By: #### M , L4 ####[facility] [address] [place], [address] KETONE UR Negative Normal Negative [facility] Comment on above: Order Comment: LISA TER SPECIMEN Performed By: #### M , L4 ####[facility] [address] [place], [address] LEUK ESTERASE 100 /ul Abnormal Negative [facility] Comment on above: Order Comment: LISA TER SPECIMEN Performed By: #### M , L4 ####[facility] [address] [place], [address] Nitrite Ql (U) Negative Normal Negative [facility] Comment on above: Order Comment: LISA TER SPECIMEN Performed By: #### M L4 ####[facility] [address] [place], [address] OCCULT BLOOD-UR 25 /ul Abnormal Negative [facility] Comment on above: Order Comment: LISA TER SPECIMEN Performed By: #### M , L4 ####[facility] [address] [place], [address] pH UR 6.0 Normal 5.0 - 8.0 [facility] Comment on above: Order Comment: LISA TER SPECIMEN Performed By: #### M , L4 ####[facility] [address] [place], [address] PROT DIPSTX 30 mg/dl Abnormal Negative [facility] Comment on above: Order Comment: LISA TER SPECIMEN Performed By: #### M 100.2200, L400.2010 ####[facility] [address] [place], [address] SP.GR. DIPSTX 1.015 Normal 1.002-1.030 [facility] Comment on above: Order Comment: LISA TER SPECIMEN Performed By: #### M 100.2200, L400.2010 ####[facility] [address] [place], [address] UROBILI Normal Normal Normal [facility] Comment on above: Order Comment: LISA TER SPECIMEN Performed By: #### M 100.2200, L400.2010 ####[facility] [address] [place], [address] Urine clarityOrdered By: MARINA CASAS on 09-28-2024 Clarity (U) Sl. Cloudy Clear [facility] Urine color determinationOrd ered By: RIKKI CASAS on 09-28-2024 Color (U) Yellow Yellow [facility] Urine cultureOrdered By: MARINA CASAS on 09-28-2024 Bacteria identified Cx Nom (U) Klebsiella pneumoniae sp pneum Abnormal [facility] Urine glucose detectionOrder ed By: RIKKI CASAS on 09-28-2024 Glucose Ql (U) Normal mg/dl Normal [facility] Urine leukocyte esterase det ection by dipstickOrdered By: RIKKI CASAS on 09-28-2024 Leukocyte esterase Test strip Ql (U) 100 /ul High Negative [facility] Urine pHOrdered By: RIKKI DOMINGUEZ on 09-28-2024 pH (U) 6.0 [pH] 5.0 - 8.0 [facility] Urine specific gravity measu rementOrdered By: RIKKI CASAS on 09-28-2024 Specific gravity (U) [Rel density] 1.015 1.002-1.030 [facility] Urine urobilinogen measureme ntOrdered By: RIKKI CASSA on 09-28-2024 Urobilinogen Ql (U) Normal mg/dl Normal [facility] 36on 09-27-2024 36 Call placed [...] letter can be sent. Fax number given: [phone] attention Jennifer. Jennifer asked if a PRN order for nurse visit could also be added so she can go back for the urine to send out. Will have this updated in the letter and sent via fax. [facility] 36 S: Jennifer nurse from [facility] spoke with [facility] nurse regarding urinary symptoms and needs [...] R: Please call homecare nurse, Jennifer, at [phone] with verbal orders for catheter changes and for a UA, C&S, or with other recommendations. No further needs at this time. Reason for Disposition Bad or foul-smelling urine Protocols used: Urinary Stcndztd-HCVWZ-NR [facility] 36 Call placed to Jennifer bad phone connection unable to understand call . Call disconnected [facility] 36on 09-26-2024 36 Name of caller: Jennifer Contact phone number: [phone] Relationship to Patient: [facility] [...] hours to return their call: Yes Normal [facility] Orthopedic Visit Reporton Orthopedic Visit Report Normal [facility] 12 Lead EKGon 08-07-2024 12 Lead EKG Normal [facility] Absolute lymphocyte countOrd ered By: Kit Harris on 08-07-2024 Lymphocytes Auto (Unsp spec) [#/Vol] 1.72 10*3/uL 0.83-4.51 [facility] Absolute neutrophil countOrd ered By: Kit Harris on 08-07-2024 Neutrophils (Bld) [#/Vol] 6.3 10*3/uL 2.0-7.7 [facility] Anion gap in Serum or Plasma Ordered By: Kit Harris on 08-07-2024 Anion gap [Moles/Vol] 10 mmol/L 5-15 [facility] Automated lymphocyte count a s percentage of total leukocytesOrdered By: Kit Harris on 08-07-2024 Lymphocytes/100 WBC Auto (Unsp spec) 17.9 % Low 19-41 [facility] BUN/creatinine ratioOrdered By: Kitalee Harris on 08-07-2024 Urea nitrogen/Creatinine [Mass ratio] 14.8 mg/mg 10-20 [facility] Basophil percentageOrdered B y: Kit Harris on 08-07-2024 Basophils/100 WBC (Bld) 0.9 % 0-1 [facility] Bilirubin Test strip Ql (U)O rdered By: Kit Harris on 08-07-2024 Bilirubin Ql (U) Negative Negative [facility] Bilirubin, totalOrdered By: Kit Harris on 08-07-2024 Bilirubin [Mass/Vol] mg/dL 0.00-1.30 [facility] Brain/Head without Contrasto n 08-07-2024 Brain/Head without Contrast Normal [facility] CBC W/Diff, Automatedon 07-28 Absolute Lymph 1.72 X10 3/uL Normal 0.83-4.51 [facility] Comment on above: Performed By: #### L 500.4050, L100.0100 ####[facility] [address] [place], [address] Absolute Neut 6.3 X10 3/uL Normal 2.0-7.7 [facility] Comment on above: Performed By: #### L 500.4050, L100.0100 ####[facility] [address] [place], [address] Basophils/100 WBC (Bld) 0.9 % Normal 0-1 [facility] Comment on above: Performed By: #### L 500.4050, L100.0100 ####[facility] [address] [place], [address] Eosinophils/100 WBC (Bld) 4.2 % Normal 0-5 [facility] Comment on above: Performed By: #### L 500.4050, L100.0100 ####[facility] [address] [place], [address] Erythrocyte distribution width (RBC) [Ratio] 16.8 % High 11.6-14.6 [facility] Comment on above: Performed By: #### L 500.4050, L100.0100 ####[facility] [address] [place], [address] Hematocrit (Bld) [Volume fraction] 35.4 % Low 40-54 [facility] Comment on above: Performed By: #### L 500.4050, L100.0100 ####[facility] [address] [place], [address] Hemoglobin (Bld) [Mass/Vol] 11.4 g/dL Low 13.0-16.5 [facility] Comment on above: Performed By: #### L 500.4050, L100.0100 ####[facility] [address] [place], [address] IG% 1.700 High 0.0-0.9 [facility] Comment on above: Result Comment: IG% - Immature Granulocytes (promyelocytes, myelocytes andmetamyelocytes) > 1% indicates that a LEFT SHIFT is Present. Performed By: #### L 500.4050, L100.0100 ####[facility] [address] [place], [address] Lymphocytes/100 WBC (Bld) 17.9 % Low 19-41 [facility] Comment on above: Performed By: #### L 500.4050, L100.0100 ####[facility] [address] [place], [address] MCH (RBC) [Entitic mass] 28.9 pg Normal 27.0-32.0 [facility] Comment on above: Performed By: #### L 500.4050, L100.0100 ####[facility] [address] [place], [address] MCHC (RBC) [Mass/Vol] 32.2 g/dL Normal 32-36 [facility] Comment on above: Performed By: #### L 500.4050, L100.0100 ####[facility] [address] [place], [address] MCV (RBC) [Entitic vol] 89.6 fL Normal 80-94 [facility] Comment on above: Performed By: #### L 500.4050, L100.0100 ####[facility] [address] [place], [address] Monocytes/100 WBC (Bld) 9.5 % Normal 0-10 [facility] Comment on above: Performed By: #### L 500.4050, L100.0100 ####[facility] [address] [place], [address] Neutrophils/100 WBC (Bld) 65.8 % Normal 47-70 [facility] Comment on above: Performed By: #### L 500.4050, L100.0100 ####[facility] [address] [place], [address] Nucleated RBC (Bld) [#/Vol] 0 10*3/uL Normal 0-5 [facility] Comment on above: Performed By: #### L 500.4050, L100.0100 ####[facility] [address] [place], [address] Platelet mean volume (Bld) [Entitic vol] 10.1 fL Normal 6.2-12.0 [facility] Comment on above: Performed By: #### L 500.4050, L100.0100 ####[facility] [address] [place], [address] Platelets (Bld) [#/Vol] 331 10*3/uL Normal 150-450 [facility] Comment on above: Performed By: #### L 500.4050, L100.0100 ####[facility] [address] [place], [address] RBC (Bld) [#/Vol] 3.95 10*6/uL Low 4.6-6.2 [facility] Comment on above: Performed By: #### L 500.4050, L100.0100 ####[facility] [address] [place], [address] RDW SD 55.9 fl High 35.1-43.9 [facility] Comment on above: Performed By: #### L 500.4050, L100.0100 ####[facility] [address] [place], [address] WBC (Bld) [#/Vol] 9.6 10*3/uL Normal 4.4-11.0 [facility] Comment on above: Performed By: #### L 500.4050, L100.0100 ####[facility] [address] [place], [address] Carbon dioxide, total [Moles /volume] in Central venous bloodOrdered By: Kit Harris on 08-07-2024 CO2 [Moles/Vol] 26.0 mmol/L 21.0-32.0 [facility] Chest 1 View (Portable)on Chest 1 View (Portable) Normal [facility] Chloride assayOrdered By: Janie Harris on 08-07-2024 Chloride [Moles/Vol] 106 mmol/L 98-108 [facility] Comprehensive Metabolic Prof ilon 08-07-2024 Albumin [Mass/Vol] 3.1 g/dL Low 3.4-4.8 [facility] Comment on above: Performed By: #### L 500.4050, L100.0100 ####[facility] [address] [place], [address] Albumin/Globulin [Mass ratio] 0.8 {ratio} Low 0.9-2.4 [facility] Comment on above: Performed By: #### L 500.4050, L100.0100 ####[facility] [address] [place], [address] ALK PHOS 109 U/L Normal 40-129 [facility] Comment on above: Performed By: #### L 500.4050, L100.0100 ####[facility] [address] [place], [address] ALT [Catalytic activity/Vol] 21 U/L Normal <=46 [facility] Comment on above: Performed By: #### L 500.4050, L100.0100 ####[facility] [address] [place], [address] AST [Catalytic activity/Vol] 12 U/L Normal <=37 [facility] Comment on above: Performed By: #### L 500.4050, L100.0100 ####[facility] [address] [place], [address] BUN/CRE 14.8 RATIO Normal 10-20 [facility] Comment on above: Performed By: #### L 500.4050, L100.0100 ####[facility] [address] [place], [address] Calcium [Mass/Vol] 9.2 mg/dL Normal 7.6-11.0 [facility] Comment on above: Performed By: #### L 500.4050, L100.0100 ####[facility] [address] [place], [address] Chloride [Moles/Vol] 106 mmol/L Normal 98-108 [facility] Comment on above: Performed By: #### L 500.4050, L100.0100 ####[facility] [address] [place], [address] CO2 [Moles/Vol] 26.0 mmol/L Normal 21.0-32.0 [facility] Comment on above: Performed By: #### L 500.4050, L100.0100 ####[facility] [address] [place], [address] Creatinine [Mass/Vol] 1.33 mg/dL High 0.70-1.20 [facility] Comment on above: Performed By: #### L 500.4050, L100.0100 ####[facility] [address] [place], [address] ECRCL 59.92 ml/min Normal 50-250 [facility] Comment on above: Performed By: #### L 500.4050, L100.0100 ####[facility] [address] [place], [address] GAP 10 Normal 5-15 [facility] Comment on above: Performed By: #### L 500.4050, L100.0100 ####[facility] [address] [place], [address] GFR/1.73 sq M.predicted among non-blacks MDRD (S/P/Bld) [Vol rate/Area] 59 mL/min/{1.73_m2} Low >60 [facility] Comment on above: Result Comment: mL/m in/1.73m2 CKD-EPI Creatinine Equation (2020) Performed By: #### L 500.4050, L100.0100 ####[facility] [address] [place], [address] Globulin (S) [Mass/Vol] 3.7 g/dL Normal 2.2-4.2 [facility] Comment on above: Performed By: #### L 500.4050, L100.0100 ####[facility] [address] [place], [address] Glucose [Mass/Vol] 139 mg/dL High 70-99 [facility] Comment on above: Performed By: #### L 500.4050, L100.0100 ####[facility] [address] [place], [address] Potassium [Moles/Vol] 3.6 mmol/L Normal 3.3-5.1 [facility] Comment on above: Performed By: #### L 500.4050, L100.0100 ####[facility] [address] [place], [address] Sodium [Moles/Vol] 142 mmol/L Normal 133-145 [facility] Comment on above: Performed By: #### L 500.4050, L100.0100 ####[facility] [address] [place], [address] T BILI < 0.15 Normal 0.00-1.30 [facility] Comment on above: Performed By: #### L 500.4050, L100.0100 ####[facility] [address] [place], [address] T PROT 6.8 g/dL Normal 5.9-8.4 [facility] Comment on above: Performed By: #### L 500.4050, L100.0100 ####[facility] [address] [place], [address] Urea nitrogen [Mass/Vol] 20 mg/dL High 4-19 [facility] Comment on above: Performed By: #### L 500.4050, L100.0100 ####[facility] [address] [place], [place], [address] Emergency Department Summary on 08-07-2024 Emergency Department Summary Normal [facility] Eosinophil percentageOrdered By: Kit Harris on 08-07-2024 Eosinophils/100 WBC (Bld) 4.2 % 0-5 [facility] Erythrocyte distribution wid th ratioOrdered By: Kit Harris on 08-07-2024 Erythrocyte distribution width (RBC) [Ratio] 16.8 % High 11.6-14.6 [facility] Erythrocyte distribution wid th standard deviationOrdered By: Kit Harris on 08-07-2024 Erythrocyte distribution width (RBC) [Ratio] 55.9 fl High 35.1-43.9 [facility] Glomerular filtration rate ( GFR) estimation/1.73 sq m using serum, plasma, or whole bOrdered By: Kit Harris on 08-07-2024 GFR/1.73 sq M.predicted among non-blacks MDRD (S/P/Bld) [Vol rate/Area] 59 mL/min/{1.73_m2} Low >60 [facility] Comment on above: mL/min/1.73m2 CKD-EP I Creatinine Equation (2020) Hematocrit Auto (Bld) [Volum e fraction]Ordered By: Kit Harris on 08-07-2024 Hematocrit (Bld) [Volume fraction] 35.4 % Low 40-54 [facility] Hemoglobin measurementOrdere d By: Kit Harris on 08-07-2024 Hemoglobin (Bld) [Mass/Vol] 11.4 g/dL Low 13.0-16.5 [facility] Immature granulocytes/100 WB C Auto (Bld)Ordered By: Kit Harris on 08-07-2024 Immature granulocytes/100 WBC (Bld) 1.700 % High 0.0-0.9 [facility] Comment on above: IG% - Immature Granu locytes (promyelocytes, myelocytes and metamyelocytes) > 1% indicates that a LEFT SHIFT is Present. Ketones Test strip Ql (U)Ord ered By: Kit Harris on 08-07-2024 Ketones Ql (U) Negative Negative [facility] L499.0042on 08-07-2024 Trop T High Sen 21 ng/L Normal <=22 [facility] Comment on above: Performed By: #### L 499.0042 ####[facility] [address] [place], [address] L499.0043on 08-07-2024 Trop T High Sen Normal <=22 [facility] Comment on above: Result Comment: Canc elled via OM: Order cancelled - Patient discharged Performed By: #### L 499.0043 ####[facility] [address] [place], [address] L501.4021on 08-07-2024 Trop T High Sen 22 ng/L Normal <=22 [facility] Comment on above: Performed By: #### L 273.4021 ####[facility] [address] [place], [address] Laboratory - Chemistry and C hemistry - challengeOrdered By: Kit Harris on 08-07-2024 AST [Catalytic activity/Vol] 12 U/L <38 [facility] MCV (mean corpuscular volume ) determinationOrdered By: Kit Harris on 08-07-2024 MCV (RBC) [Entitic vol] 89.6 fL 80-94 [facility] Mean corpuscular hemoglobin (MCH) determinationOrdered By: Kit Harris on 08-07-2024 MCH (RBC) [Entitic mass] 28.9 pg 27.0-32.0 [facility] Mean corpuscular hemoglobin concentration (MCHC) determinationOrdered By: Kit Harris on 08-07-2024 MCHC (RBC) [Mass/Vol] 32.2 g/dL 32-36 [facility] Mean platelet volume determi nationOrdered By: Kit Harris on 08-07-2024 Platelet mean volume (Bld) [Entitic vol] 10.1 fL 6.2-12.0 [facility] Microscopic analysis of urin e for red blood cells (RBC)Ordered By: Kit Harris on 08-07-2024 Microscopic analysis of urine for red blood cells (RBC) 0 SEEN /hpf 0-5 [facility] Monocyte percentageOrdered B y: Kit Harris on 08-07-2024 Monocytes/100 WBC (Bld) 9.5 % 0-10 [facility] Mucus LM Ql (Urine sed)Order ed By: Kit Harris on 08-07-2024 Mucus Ql (Urine sed) 0 SEEN /hpf [facility] Neutrophil percentageOrdered By: Kit Harris on 08-07-2024 Neutrophils/100 WBC (Bld) 65.8 % 47-70 [facility] Nitrite Test strip Ql (U)Ord ered By: Kit Harris on 08-07-2024 Nitrite Ql (U) Negative Negative [facility] No Panel InformationOrdered By: Kit Harris on 08-07-2024 12 U/L <38 [facility] Nucleated red blood cell per centageOrdered By: Kit Harris on 08-07-2024 Nucleated RBC/100 WBC (Bld) [Ratio] 0 % 0-5 [facility] Platelet countOrdered By: Janie Harris on 08-07-2024 Platelets (Bld) [#/Vol] 331 10*3/uL 150-450 [facility] Potassium measurement (mass/ volume)Ordered By: Kit Harris on 08-07-2024 Potassium (Unsp spec) [Mass/Vol] 3.6 mmol/L 3.3-5.1 [facility] Protein Test strip Ql (U)Ord ered By: Kit Harris on 08-07-2024 Protein Ql (U) 15 mg/dl High Negative [facility] RBC Auto (Bld) [#/Vol]Ordere d By: Kit Harris on 08-07-2024 RBC (Bld) [#/Vol] 3.95 10*6/uL Low 4.6-6.2 [facility] Serum creatinine measurement (mass/volume)Ordered By: Kit Harris on 08-07-2024 Creatinine [Mass/Vol] 1.33 mg/dL High 0.70-1.20 [facility] Serum globulin measurementOr dered By: Kit Harris on 08-07-2024 Globulin (S) [Mass/Vol] 3.7 g/dL 2.2-4.2 [facility] Serum glucose measurement (m ass/volume)Ordered By: Kit Harris on 08-07-2024 Glucose [Mass/Vol] 139 mg/dL High 70-99 [facility] Serum or plasma alanine orozco otransferase (ALT) measurementOrdered By: Kit Harris on 08-07-2024 ALT [Catalytic activity/Vol] 21 U/L <47 [facility] Serum or plasma albumin marlyn urement (mass/volume)Ordered By: Kit Harris on 08-07-2024 Albumin [Mass/Vol] 3.1 g/dL Low 3.4-4.8 [facility] Serum or plasma albumin/glob ulin mass ratioOrdered By: Kit Harris on 08-07-2024 Albumin/Globulin [Mass ratio] 0.8 {ratio} Low 0.9-2.4 [facility] Serum or plasma alkaline marisol sphatase measurementOrdered By: Kit Harris on 08-07-2024 ALP [Catalytic activity/Vol] 109 U/L 40-129 [facility] Serum or plasma calcium marlyn urement (mass/volume)Ordered By: Kit Harris on 08-07-2024 Calcium [Mass/Vol] 9.2 mg/dL 7.6-11.0 [facility] Serum or plasma urea nitroge n measurement (mass/volume)Ordered By: Kit Harris on 08-07-2024 Urea nitrogen [Mass/Vol] 20 mg/dL High 4-19 [facility] Sodium levelOrdered By: Micheal Harris on 08-07-2024 Sodium [Moles/Vol] 142 mmol/L 133-145 [facility] Squamous epithelial cells de tection in urine sediment by light microscopyOrdered By: Kit Harris on 08-07-2024 Epithelial cells.squamous LM Ql (Urine sed) 0 SEEN /hpf 0-5 [facility] Total proteinOrdered By: Kenneth louisecolten Steven on 08-07-2024 Protein [Mass/Vol] 6.8 g/dL 5.9-8.4 [facility] Troponin T.cardiac [Mass/vol ume] in Serum or Plasma by High sensitivity methodOrdered By: Kit Harris on 08-07-2024 Troponin T.cardiac High sensitivity method [Mass/Vol] 21 ng/L <22 [facility] Troponin T.cardiac High sensitivity method [Mass/Vol] 22 ng/L <22 [facility] Urinalysis, Completeon 08-07 WBC 0-5 SEEN Normal 0-5 [facility] Comment on above: Order Comment: LISA TER SPECIMEN Performed By: #### L 400.0001 ####[facility] [address] [place], [address] BACTERIA 0 SEEN Normal None Seen [facility] Comment on above: Order Comment: LISA TER SPECIMEN Performed By: #### L 400.0001 ####[facility] [address] [place], [address] EPI,SQUAMOUS 0 SEEN Normal 0-5 [facility] Comment on above: Order Comment: LISA TER SPECIMEN Performed By: #### L 400.0001 ####[facility] [address] [place], [address] Mucus Ql (Urine sed) 0 SEEN Normal [facility] Comment on above: Order Comment: LISA TER SPECIMEN Performed By: #### L 400.0001 ####[facility] [address] [place], [address] RBC 0 SEEN Normal 0-5 [facility] Comment on above: Order Comment: LISA TER SPECIMEN Performed By: #### L 400.0001 ####[facility] [address] [place], [address] Urine clarityOrdered By: Kenneth Harris on 08-07-2024 Clarity (U) Clear Clear [facility] Urine color determinationOrd ered By: Kit Harris on 08-07-2024 Color (U) Yellow Yellow [facility] Urine glucose detectionOrder ed By: Kit Harris on 08-07-2024 Glucose Ql (U) Normal mg/dl Normal [facility] Urine leukocyte esterase det ection by dipstickOrdered By: Kit Harris on 08-07-2024 Leukocyte esterase Test strip Ql (U) 25 /ul High Negative [facility] Urine pHOrdered By: Kit Harris on 08-07-2024 pH (U) 6.5 [pH] 5.0 - 8.0 [facility] Urine sediment bacteria coun t by microscopy (number/high power field)Ordered By: Kit Harris on 08-07-2024 Bacteria LM.HPF (Urine sed) [#/Area] 0 /[HPF] None Seen [facility] Urine specific gravity measu rementOrdered By: Kit Harris on 08-07-2024 Specific gravity (U) [Rel density] 1.010 1.002-1.030 [facility] Urine urobilinogen measureme ntOrdered By: Kit Harris on 08-07-2024 Urobilinogen Ql (U) Normal mg/dl Normal [facility] White blood cell (WBC) count Ordered By: Kit Harris on 08-07-2024 WBC (Bld) [#/Vol] 9.6 10*3/uL 4.4-11.0 [facility] White blood cell countOrdere d By: Kit Harris on 08-07-2024 White blood cell count 0-5 SEEN /hpf 0-5 [facility] Culture, Blood (WB)on 2024 CUB Blood cultures x2, from two different sites No growth in 5 days. Normal [facility] Comment on above: Performed By: #### M 200.1000, L100.0100, L300.4310, L300.3900, L503.6005, L500.4050 ####[facility] [address] [place], [address] Performed By: #### M 200.1000 ####[facility] [address] [place], [address] Absolute lymphocyte countOrd ered By: Hebert Saavedra on 08-02-2024 Lymphocytes Auto (Unsp spec) [#/Vol] 1.13 10*3/uL 0.83-4.51 [facility] Absolute neutrophil countOrd ered By: [facility] on 08-02-2024 Neutrophils (Bld) [#/Vol] 4.7 10*3/uL 2.0-7.7 [facility] Anion gap in Serum or Plasma Ordered By: Hebert Saavedra on 08-02-2024 Anion gap [Moles/Vol] 10 mmol/L 5-15 [facility] Automated lymphocyte count a s percentage of total leukocytesOrdered By: Hebert Saavedra on 08-02-2024 Lymphocytes/100 WBC Auto (Unsp spec) 15.1 % Low 19-41 [facility] BUN/creatinine ratioOrdered By: [facility] on 08-02-2024 Urea nitrogen/Creatinine [Mass ratio] 21.3 mg/mg High 01-16 [facility] Base excess Calc (BldV) [Mol es/Vol]Ordered By: Hebert Saavedra on 08-02-2024 Venous Blood Base Excess 10 mmol/L High -1.0-3.5 [facility] Basic Metabolic Profile (BMP )on 08-02-2024 BUN/CRE 21.3 RATIO High - [facility] Comment on above: Performed By: #### L 500.2500, L100.0100 ####[facility] [address] [place], [address] Calcium [Mass/Vol] 8.9 mg/dL Normal 7.6-11.0 [facility] Comment on above: Performed By: #### L 500.2500, L100.0100 ####[facility] [address] [place], [address] Chloride [Moles/Vol] 113 mmol/L High 98-108 [facility] Comment on above: Performed By: #### L 500.2500, L100.0100 ####[facility] [address] [place], [address] CO2 [Moles/Vol] 21.3 mmol/L Normal 21.0-32.0 [facility] Comment on above: Performed By: #### L 500.2500, L100.0100 ####[facility] [address] [place], [address] Creatinine [Mass/Vol] 1.10 mg/dL Normal 0.70-1.20 [facility] Comment on above: Performed By: #### L 500.2500, L100.0100 ####[facility] [address] [place], [address] ECRCL 73.63 ml/min Normal 50-250 [facility] Comment on above: Performed By: #### L 500.2500, L100.0100 ####[facility] [address] [place], [address] GAP 10 Normal 5-15 [facility] Comment on above: Performed By: #### L 500.2500, L100.0100 ####[facility] [address] [place], [address] GFR/1.73 sq M.predicted among non-blacks MDRD (S/P/Bld) [Vol rate/Area] 74 mL/min/{1.73_m2} Normal >60 [facility] Comment on above: Result Comment: mL/m in/1.73m2 CKD-EPI Creatinine Equation (2020) Performed By: #### L 500.2500, L100.0100 ####[facility] [address] [place], [address] Glucose [Mass/Vol] 103 mg/dL High 70-99 [facility] Comment on above: Performed By: #### L 500.2500, L100.0100 ####[facility] [address] [place], [address] Potassium [Moles/Vol] 3.6 mmol/L Normal 3.3-5.1 [facility] Comment on above: Performed By: #### L 500.2500, L100.0100 ####[facility] [address] [place], [address] Sodium [Moles/Vol] 144 mmol/L Normal 133-145 [facility] Comment on above: Performed By: #### L 500.2500, L100.0100 ####[facility] [address] [place], [address] Urea nitrogen [Mass/Vol] 23 mg/dL High 4-19 [facility] Comment on above: Performed By: #### L 500.2500, L100.0100 ####[facility] [address] [place], [address] BUN Normal 4-19 [facility] Comment on above: Result Comment: Canc elled via OM: Order cancelled - Patient discharged Performed By: #### L 500.2500, L100.0100 ####[facility] [address] [place], [address] BUN/CRE Normal 10-20 [facility] Comment on above: Result Comment: Canc elled via OM: Order cancelled - Patient discharged Performed By: #### L 500.2500, L100.0100 ####[facility] [address] [place], [address] Calcium Normal 7.6-11.0 [facility] Comment on above: Result Comment: Canc elled via OM: Order cancelled - Patient discharged Performed By: #### L 500.2500, L100.0100 ####[facility] [address] [place], [address] CL Normal 98-108 [facility] Comment on above: Result Comment: Canc elled via OM: Order cancelled - Patient discharged Performed By: #### L 500.2500, L100.0100 ####[facility] [address] [place], [address] CO2 Normal 21.0-32.0 [facility] Comment on above: Result Comment: Canc elled via OM: Order cancelled - Patient discharged Performed By: #### L 500.2500, L100.0100 ####[facility] [address] [place], [address] CREAT,SERUM Normal 0.70-1.20 [facility] Comment on above: Result Comment: Canc elled via OM: Order cancelled - Patient discharged Performed By: #### L 500.2500, L100.0100 ####[facility] [address] [place], [address] eGFR Normal >60 [facility] Comment on above: Result Comment: Canc elled via OM: Order cancelled - Patient discharged Performed By: #### L 500.2500, L100.0100 ####[facility] [address] [place], [address] GAP Normal 5-15 [facility] Comment on above: Result Comment: Canc elled via OM: Order cancelled - Patient discharged Performed By: #### L 500.2500, L100.0100 ####[facility] [address] [place], [address] GLU Normal 70-99 [facility] Comment on above: Result Comment: Canc elled via OM: Order cancelled - Patient discharged Performed By: #### L 500.2500, L100.0100 ####[facility] [address] [place], [address] Potassium Normal 3.3-5.1 [facility] Comment on above: Result Comment: Canc elled via OM: Order cancelled - Patient discharged Performed By: #### L 500.2500, L100.0100 ####[facility] [address] [place], [address] Basic Metabolic Profile (BMP) Normal 133-145 [facility] Comment on above: Result Comment: Canc elled via OM: Order cancelled - Patient discharged Performed By: #### L 500.2500, L100.0100 ####[facility] [address] [place], [address] Basophil percentageOrdered B y: Hebert Saavedra on 08-02-2024 Basophils/100 WBC (Bld) 0.4 % 0-1 [facility] Bilirubin Test strip Ql (U)O rdered By: Hebert Saavedra on 08-02-2024 Bilirubin Ql (U) Negative Negative [facility] CBC W/Diff, Automatedon Absolute Lymph 1.13 X10 3/uL Normal 0.83-4.51 [facility] Comment on above: Performed By: #### L 500.2500, L100.0100 ####[facility] [address] [place], [address] Absolute Neut 4.7 X10 3/uL Normal 2.0-7.7 [facility] Comment on above: Performed By: #### L 500.2500, L100.0100 ####[facility] [address] [place], [address] Basophils/100 WBC (Bld) 0.4 % Normal 0-1 [facility] Comment on above: Performed By: #### L 500.2500, L100.0100 ####[facility] [address] [place], [address] Eosinophils/100 WBC (Bld) 6.6 % High 0-5 [facility] Comment on above: Performed By: #### L 500.2500, L100.0100 ####[facility] [address] [place], [address] Erythrocyte distribution width (RBC) [Ratio] 17.7 % High 11.6-14.6 [facility] Comment on above: Performed By: #### L 500.2500, L100.0100 ####[facility] [address] [place], [address] Hematocrit (Bld) [Volume fraction] 33.7 % Low 40-54 [facility] Comment on above: Performed By: #### L 500.2500, L100.0100 ####[facility] [address] [place], [address] Hemoglobin (Bld) [Mass/Vol] 10.8 g/dL Low 13.0-16.5 [facility] Comment on above: Performed By: #### L 500.2500, L100.0100 ####[facility] [address] [place], [address] IG% 0.500 Normal 0.0-0.9 [facility] Comment on above: Result Comment: IG% - Immature Granulocytes (promyelocytes, myelocytes andmetamyelocytes) > 1% indicates that a LEFT SHIFT is Present. Performed By: #### L 500.2500, L100.0100 ####[facility] [address] [place], [address] Lymphocytes/100 WBC (Bld) 15.1 % Low 19-41 [facility] Comment on above: Performed By: #### L 500.2500, L100.0100 ####[facility] [address] [place], [address] MCH (RBC) [Entitic mass] 28.6 pg Normal 27.0-32.0 [facility] Comment on above: Performed By: #### L 500.2500, L100.0100 ####[facility] [address] [place], [address] MCHC (RBC) [Mass/Vol] 32.0 g/dL Normal 32-36 [facility] Comment on above: Performed By: #### L 500.2500, L100.0100 ####[facility] [address] [place], [address] MCV (RBC) [Entitic vol] 89.4 fL Normal 80-94 [facility] Comment on above: Performed By: #### L 500.2500, L100.0100 ####[facility] [address] [place], [address] Monocytes/100 WBC (Bld) 15.1 % High 0-10 [facility] Comment on above: Performed By: #### L 500.2500, L100.0100 ####[facility] [address] [place], [address] Neutrophils/100 WBC (Bld) 62.3 % Normal 47-70 [facility] Comment on above: Performed By: #### L 500.2500, L100.0100 ####[facility] [address] [place], [address] Nucleated RBC (Bld) [#/Vol] 0 10*3/uL Normal 0-5 [facility] Comment on above: Performed By: #### L 500.2500, L100.0100 ####[facility] [address] [place], [address] Platelet mean volume (Bld) [Entitic vol] 9.8 fL Normal 6.2-12.0 [facility] Comment on above: Performed By: #### L 500.2500, L100.0100 ####[facility] [address] [place], [address] Platelets (Bld) [#/Vol] 237 10*3/uL Normal 150-450 [facility] Comment on above: Performed By: #### L 500.2500, L100.0100 ####[facility] [address] [place], [address] RBC (Bld) [#/Vol] 3.77 10*6/uL Low 4.6-6.2 [facility] Comment on above: Performed By: #### L 500.2500, L100.0100 ####[facility] [address] [place], [address] RDW SD 57.7 fl High 35.1-43.9 [facility] Comment on above: Performed By: #### L 500.2500, L100.0100 ####[facility] [address] [place], [address] WBC (Bld) [#/Vol] 7.5 10*3/uL Normal 4.4-11.0 [facility] Comment on above: Performed By: #### L 500.2500, L100.0100 ####[facility] [address] [place], [address] Absolute Neut Normal 2.0-7.7 [facility] Comment on above: Result Comment: Canc elled via OM: Order cancelled - Patient discharged Performed By: #### L 500.2500, L100.0100 ####[facility] [address] [place], [address] HCT Normal 40-54 [facility] Comment on above: Result Comment: Canc elled via OM: Order cancelled - Patient discharged Performed By: #### L 500.2500, L100.0100 ####[facility] [address] [place], [address] HGB Normal 13.0-16.5 [facility] Comment on above: Result Comment: Canc elled via OM: Order cancelled - Patient discharged Performed By: #### L 500.2500, L100.0100 ####[facility] [address] [place], [address] MCH Normal 27.0-32.0 [facility] Comment on above: Result Comment: Canc elled via OM: Order cancelled - Patient discharged Performed By: #### L 500.2500, L100.0100 ####[facility] [address] [place], [address] MCHC Normal 32-36 [facility] Comment on above: Result Comment: Canc elled via OM: Order cancelled - Patient discharged Performed By: #### L 500.2500, L100.0100 ####[facility] [address] [place], [address] MCV Normal 80-94 [facility] Comment on above: Result Comment: Canc elled via OM: Order cancelled - Patient discharged Performed By: #### L 500.2500, L100.0100 ####[facility] [address] [place], [address] NEUT% Normal 47-70 [facility] Comment on above: Result Comment: Canc elled via OM: Order cancelled - Patient discharged Performed By: #### L 500.2500, L100.0100 ####[facility] [address] [place], [address] PLT Normal 150-450 [facility] Comment on above: Result Comment: Canc elled via OM: Order cancelled - Patient discharged Performed By: #### L 500.2500, L100.0100 ####[facility] [address] [place], [address] RBC Normal 4.6-6.2 [facility] Comment on above: Result Comment: Canc elled via OM: Order cancelled - Patient discharged Performed By: #### L 500.2500, L100.0100 ####[facility] [address] [place], [address] RDW CV Normal 11.6-14.6 [facility] Comment on above: Result Comment: Canc elled via OM: Order cancelled - Patient discharged Performed By: #### L 500.2500, L100.0100 ####[facility] [address] [place], [address] RDW SD Normal 35.1-43.9 [facility] Comment on above: Result Comment: Canc elled via OM: Order cancelled - Patient discharged Performed By: #### L 500.2500, L100.0100 ####[facility] [address] [place], [address] WBC Normal 4.4-11.0 [facility] Comment on above: Result Comment: Canc elled via OM: Order cancelled - Patient discharged Performed By: #### L 500.2500, L100.0100 ####[facility] [address] [place], [address] CO2 (BldV) [Moles/Vol]Ordere d By: Hebert Saavedra on 08-02-2024 CO2 [Moles/Vol] 33 mmol/L 23-33 [facility] CO2 (BldV) [Partial pressure ]Ordered By: Hebert Saavedra on 08-02-2024 Bed Mix Venous Bld PCO2 at Pat Temp 37.5 mmHg Low 41-51 [facility] Carbon dioxide, total [Moles /volume] in Central venous bloodOrdered By: Hebert Saavedra on 08-02-2024 CO2 [Moles/Vol] 21.3 mmol/L 21.0-32.0 [facility] Chest PA and Lateralon 08-02 Chest PA and Lateral Normal [facility] Chloride assayOrdered By: Adri Saavedra on 08-02-2024 Chloride [Moles/Vol] 113 mmol/L High 98-108 [facility] Determination of fraction of inspired oxygenOrdered By: Hebert Saavedra on 08-02-2024 Blood Gas Oxygen Percent 21.0 [facility] Emergency Department Summary on 08-02-2024 Emergency Department Summary Normal [facility] Eosinophil percentageOrdered By: Hebert Saavedra on 08-02-2024 Eosinophils/100 WBC (Bld) 6.6 % High 0-5 [facility] Epithelial cells.squamous LM Ql (Urine sed)Ordered By: Hebert Saavedra on 08-02-2024 Epithelial cells.squamous LM.HPF (Urine sed) [#/Area] 0 /[HPF] 0-5 [facility] Erythrocyte distribution wid th (RBC) [Ratio]Ordered By: Hebert Saavedra on 08-02-2024 Erythrocyte distribution width (RBC) [Entitic vol] 57.7 fL High 35.1-43.9 [facility] Erythrocyte distribution wid th ratioOrdered By: Hebert Saavedra on 08-02-2024 Erythrocyte distribution width (RBC) [Ratio] 17.7 % High 11.6-14.6 [facility] Erythrocyte distribution wid th standard deviationOrdered By: Hebert Saavedra on 08-02-2024 Erythrocyte distribution width (RBC) [Ratio] 57.7 fl High 35.1-43.9 [facility] Estimation of creatinine moon aranceOrdered By: Hebert Saavedra on 08-02-2024 Estimated Creatinine Clearance Calc 73.63 ml/min 50-250 [facility] GFR/1.73 sq M.predicted elias g non-blacks MDRD (S/P/Bld) [Vol rate/Area]Ordered By: Hebert Saavedra on 08-02-2024 Estimated GFR (MDRD) Non-Af Amer 74 >60 [facility] Comment on above: mL/min/1.73m2 CKD-EP I Creatinine Equation (2020) Glomerular filtration rate ( GFR) estimation/1.73 sq m using serum, plasma, or whole bOrdered By: Hebert Saavedra on 08-02-2024 GFR/1.73 sq M.predicted among non-blacks MDRD (S/P/Bld) [Vol rate/Area] 74 mL/min/{1.73_m2} >60 [facility] Comment on above: mL/min/1.73m2 CKD-EP I Creatinine Equation (2020) Glucose Ql (U)Ordered By: Adri Saavedra on 08-02-2024 Urine Glucose (UA) Normal mg/dl Normal [facility] Hematocrit Auto (Bld) [Volum e fraction]Ordered By: Hebert Saavedra on 08-02-2024 Hematocrit (Bld) [Volume fraction] 33.7 % Low 40-54 [facility] Hemoglobin measurementOrdere d By: Hebert Saavedra on 08-02-2024 Hemoglobin (Bld) [Mass/Vol] 10.8 g/dL Low 13.0-16.5 [facility] Immature granulocytes/100 WB C Auto (Bld)Ordered By: Hebert Saavedra on 08-02-2024 Immature granulocytes/100 WBC (Bld) 0.500 % 0.0-0.9 [facility] Comment on above: IG% - Immature Granu locytes (promyelocytes, myelocytes and metamyelocytes) > 1% indicates that a LEFT SHIFT is Present. Ketones Test strip Ql (U)Ord ered By: Hebert Saavedra on 08-02-2024 Ketones Ql (U) Negative Negative [facility] Lymphocytes Auto (Unsp spec) [#/Vol]Ordered By: Hebert Saavedra on 08-02-2024 Lymphocytes (Bld) [#/Vol] 1.13 10*3/uL 0.83-4.51 [facility] Lymphocytes/100 WBC Auto (Un sp spec)Ordered By: Hebert Saavedra on 08-02-2024 Lymphocytes/100 WBC (Bld) 15.1 % Low 19-41 [facility] MCV (mean corpuscular volume ) determinationOrdered By: Hebert Saavedra on 08-02-2024 MCV (RBC) [Entitic vol] 89.4 fL 80-94 [facility] Mean corpuscular hemoglobin (MCH) determinationOrdered By: Hebert Saavedra on 08-02-2024 MCH (RBC) [Entitic mass] 28.6 pg 27.0-32.0 [facility] Mean corpuscular hemoglobin concentration (MCHC) determinationOrdered By: Hebert Saavedra on 08-02-2024 MCHC (RBC) [Mass/Vol] 32.0 g/dL 32-36 [facility] Mean platelet volume determi nationOrdered By: Hebert Saavedra on 08-02-2024 Platelet mean volume (Bld) [Entitic vol] 9.8 fL 6.2-12.0 [facility] Microscopic analysis of urin e for red blood cells (RBC)Ordered By: Hebert Saavedra on 08-02-2024 Microscopic analysis of urine for red blood cells (RBC) 0 SEEN /hpf 0-5 [facility] Urine RBC 0 SEEN /hpf 0-5 [facility] Monocyte percentageOrdered B y: Hebert Saavedra on 08-02-2024 Monocytes/100 WBC (Bld) 15.1 % High 0-10 [facility] Mucus LM Ql (Urine sed)Order ed By: Hebert Saavedra on 08-02-2024 Mucus Ql (Urine sed) 0 SEEN /hpf [facility] Neutrophil percentageOrdered By: Hebert Saavedra on 08-02-2024 Neutrophils/100 WBC (Bld) 62.3 % 47-70 [facility] Nitrite Test strip Ql (U)Ord ered By: Hebert Saavedra on 08-02-2024 Nitrite Ql (U) Negative Negative [facility] No Panel InformationOrdered By: Hebert Saavedra on 08-02-2024 Blood Gas Sample Site Not entered [facility] Blood Gas Specimen Type LUZ ELENA [facility] Oxygen Delivery Device Not entered [facility] LUZ ELENA [facility] Not entered [facility] Nucleated red blood cell per centageOrdered By: Hebert Saavedra on 08-02-2024 Nucleated RBC/100 WBC (Bld) [Ratio] 0 % 0-5 [facility] Oxygen (BldV) [Partial press ure]Ordered By: Hebert Saavedra on 08-02-2024 Venous Blood Partial Pressure O2 81 mmHg High 25-40 [facility] Platelet countOrdered By: Adri Saavedra on 08-02-2024 Platelets (Bld) [#/Vol] 237 10*3/uL 150-450 [facility] Potassium (Unsp spec) [Mass/ Vol]Ordered By: Hebert Saavedra on 08-02-2024 Potassium [Moles/Vol] 3.6 mmol/L 3.3-5.1 [facility] Potassium measurement (mass/ volume)Ordered By: Hebert Saavedra on 08-02-2024 Potassium (Unsp spec) [Mass/Vol] 3.6 mmol/L 3.3-5.1 [facility] Protein Test strip Ql (U)Ord ered By: Hebert Saavedra on 08-02-2024 Protein Ql (U) 15 mg/dl High Negative [facility] RBC Auto (Bld) [#/Vol]Ordere d By: Hebert Saavedra on 08-02-2024 RBC (Bld) [#/Vol] 3.77 10*6/uL Low 4.6-6.2 [facility] Serum creatinine measurement (mass/volume)Ordered By: Hebert Saavedra on 08-02-2024 Creatinine [Mass/Vol] 1.10 mg/dL 0.70-1.20 [facility] Serum glucose measurement (m ass/volume)Ordered By: Hebert Saavedra on 08-02-2024 Glucose [Mass/Vol] 103 mg/dL High 70-99 [facility] Serum or plasma calcium marlyn urement (mass/volume)Ordered By: Hebertgerman Saavedra on 08-02-2024 Calcium [Mass/Vol] 8.9 mg/dL 7.6-11.0 [facility] Serum or plasma urea nitroge n measurement (mass/volume)Ordered By: Hebert Saavedra on 08-02-2024 Urea nitrogen [Mass/Vol] 23 mg/dL High 4-19 [facility] Sodium levelOrdered By: Hebertgerman Saavedra on 08-02-2024 Sodium [Moles/Vol] 144 mmol/L 133-145 [facility] Squamous epithelial cells de tection in urine sediment by light microscopyOrdered By: Hebert Saavedra on 08-02-2024 Epithelial cells.squamous LM Ql (Urine sed) 0 SEEN /hpf 0-5 [facility] Urinalysis, Completeon 08-02 WBC 0-5 SEEN Normal 0-5 [facility] Comment on above: Order Comment: CLEAN CATCH Performed By: #### L 400.0001 ####[facility] [address] [place], [place], [id number] BACTERIA 0 SEEN Normal None Seen [facility] Comment on above: Order Comment: CLEAN CATCH Performed By: #### L 400.0001 ####[facility] [address] [place], [address] EPI,SQUAMOUS 0 SEEN Normal 0-5 [facility] Comment on above: Order Comment: CLEAN CATCH Performed By: #### L 400.0001 ####[facility] [address] [place], [address] Mucus Ql (Urine sed) 0 SEEN Normal [facility] Comment on above: Order Comment: CLEAN CATCH Performed By: #### L 400.0001 ####[facility] [address] [place], [address] RBC 0 SEEN Normal 0-5 [facility] Comment on above: Order Comment: CLEAN CATCH Performed By: #### L 400.0001 ####[facility] [address] [place], [place], [id number] Urine Cultureon 08-02-2024 URC Normal [facility] Comment on above: Performed By: #### L 400.0001, M100.2200 ####[facility] [address] [place], [place], [id number] Urine blood detectionOrdered By: Hebert Saavedra on 08-02-2024 Urine Occult Blood 10 /ul High Negative [facility] Urine clarityOrdered By: Hebert Saavedra on 08-02-2024 Clarity (U) Clear Clear [facility] Urine color determinationOrd ered By: Hebert Saavedra on 08-02-2024 Color (U) Yellow Yellow [facility] Urine glucose detectionOrder ed By: Hebert Saavedra on 08-02-2024 Glucose Ql (U) Normal mg/dl Normal [facility] Urine leukocyte esterase det ection by dipstickOrdered By: Hebert Saavedra on 08-02-2024 Leukocyte esterase Test strip Ql (U) 500 /ul High Negative [facility] Urine pHOrdered By: Hebert porter on 08-02-2024 pH (U) 7.0 [pH] 5.0 - 8.0 [facility] Urine sediment bacteria coun t by microscopy (number/high power field)Ordered By: Hebert Saavedra on 08-02-2024 Bacteria LM.HPF (Urine sed) [#/Area] 0 /[HPF] None Seen [facility] Urine specific gravity measu rementOrdered By: Hebert Saavedra on 08-02-2024 Specific gravity (U) [Rel density] 1.005 1.002-1.030 [facility] Urine urobilinogen measureme ntOrdered By: Hebert Saavedra on 08-02-2024 Urobilinogen Ql (U) Normal mg/dl Normal [facility] Urobilinogen Ql (U)Ordered B y: Hebert Saavedra on 08-02-2024 Urine Urobilinogen Normal mg/dl Normal [facility] Venous Blood Gason 5 Blood Gas Type LUZ ELENA Normal [facility] Comment on above: Performed By: #### L 9000.0810 ####[facility] [address] [place], [address] CO2 [Moles/Vol] 33 mmol/L Normal 23-33 [facility] Comment on above: Performed By: #### L 9000.0810 ####[facility] [address] [facility] [address] FI02 21.0 [facility] Comment on above: Performed By: #### L 9000.0810 ####[facility] [address] [place], [address] HCO3 (Bld) [Moles/Vol] 32 mmol/L High 22-26 [facility] Comment on above: Performed By: #### L 9000.0810 ####[facility] [address] [place], [address] O2 Delivery Dev Not entered [facility] Comment on above: Performed By: #### L 9000.0810 ####[facility] [address] [place], [address] SITE Not entered [facility] Comment on above: Performed By: #### L 9000.0810 ####[facility] [address] [place], [address] VBG BE 10 mmol/L High -1.0-3.5 [facility] Comment on above: Performed By: #### L 9000.0810 ####[facility] [address] [place], [place], [address] VBG pCO2 37.5 mmHg Low 41-51 [facility] Comment on above: Performed By: #### L 9000.0810 ####[facility] [address] [facility] [address] VBG pH 7.54 High 7.32-7.42 [facility] Comment on above: Performed By: #### L 9000.0810 ####[facility] [address] [place], [address] VBG PO2 81 mmHg High 25-40 [facility] Comment on above: Performed By: #### L 9000.0810 ####[facility] [address] [place], [address] VBG SO2 97 High 50-70 [facility] Comment on above: Performed By: #### L 9000.0810 ####[facility] [address] [place], [place], [id number] Venous blood base excess gregoria surementOrdered By: Hebert Saavedra on 08-02-2024 Base excess Calc (BldV) [Moles/Vol] 10 mmol/L High -1.0-3.5 [facility] Venous blood bicarbonate gregoria surementOrdered By: Hebert Saavedra on 08-02-2024 HCO3 (Bld) [Moles/Vol] 32 mmol/L High 22-26 [facility] Venous blood oxygen saturati on measurementOrdered By: Hebert Saavedra on 08-02-2024 Oxygen saturation in Blood 97 % High 50-70 [facility] Venous blood pH measurementO rdered By: Hebert Saavedra on 08-02-2024 pH (BldV) 7.54 [pH] High 7.32-7.42 [facility] Venous blood partial pressur e of carbon dioxide measurementOrdered By: Hebert Saavedra on 08-02-2024 CO2 (BldV) [Partial pressure] 37.5 mm[Hg] Low 41-51 [facility] Venous blood partial pressur e of oxygen measurementOrdered By: Hebert Saavedra on 08-02-2024 Oxygen (BldV) [Partial pressure] 81 mm[Hg] High 25-40 [facility] White blood cell (WBC) count Ordered By: Hebert Saavedra on 08-02-2024 WBC (Bld) [#/Vol] 7.5 10*3/uL 4.4-11.0 [facility] White blood cell countOrdere d By: Hebert Saavedra on 08-02-2024 Urine WBC 0-5 SEEN /hpf 0-5 [facility] White blood cell count 0-5 SEEN /hpf 0-5 [facility] pH (BldV)Ordered By: Hebert muniz on 08-02-2024 Venous Blood pH 7.54 High 7.32-7.42 [facility] Absolute lymphocyte countOrd ered By: Miller Blank on 08-01-2024 Lymphocytes Auto (Unsp spec) [#/Vol] 1.14 10*3/uL 0.83-4.51 [facility] Absolute neutrophil countOrd ered By: Miller Blank on 08-01-2024 Neutrophils (Bld) [#/Vol] 6.1 10*3/uL 2.0-7.7 [facility] Ammoniaon 08-01-2024 Ammonia (P) [Moles/Vol] 43.8 umol/L Normal 16-60 [facility] Comment on above: Performed By: #### L 503.5510 ####[facility] [address] [place], [place], [id number] Anion gap in Serum or Plasma Ordered By: Miller Blank on 08-01-2024 Anion gap [Moles/Vol] 10 mmol/L 5-15 [facility] Automated lymphocyte count a s percentage of total leukocytesOrdered By: Miller Blank on 08-01-2024 Lymphocytes/100 WBC Auto (Unsp spec) 13.2 % Low 19-41 [facility] BUN/creatinine ratioOrdered By: Miller Blank on 08-01-2024 Urea nitrogen/Creatinine [Mass ratio] 12.9 mg/mg 10-20 [facility] Basic Metabolic Profile (BMP )on 08-01-2024 BUN/CRE 12.9 RATIO Normal - [facility] Comment on above: Performed By: #### L 500.2500, L100.0100 ####[facility] [address] [place], [address] Calcium [Mass/Vol] 8.7 mg/dL Normal 7.6-11.0 [facility] Comment on above: Performed By: #### L 500.2500, L100.0100 ####[facility] [address] [place], [address] Chloride [Moles/Vol] 113 mmol/L High 98-108 [facility] Comment on above: Performed By: #### L 500.2500, L100.0100 ####[facility] [address] [place], [address] CO2 [Moles/Vol] 20.3 mmol/L Low 21.0-32.0 [facility] Comment on above: Performed By: #### L 500.2500, L100.0100 ####[facility] [address] [place], [address] Creatinine [Mass/Vol] 1.06 mg/dL Normal 0.70-1.20 [facility] Comment on above: Performed By: #### L 500.2500, L100.0100 ####[facility] [address] [place], [address] ECRCL 73.88 ml/min Normal 50-250 [facility] Comment on above: Performed By: #### L 500.2500, L100.0100 ####[facility] [address] [place], [address] GAP 10 Normal 5-15 [facility] Comment on above: Performed By: #### L 500.2500, L100.0100 ####[facility] [address] [place], [address] GFR/1.73 sq M.predicted among non-blacks MDRD (S/P/Bld) [Vol rate/Area] 77 mL/min/{1.73_m2} Normal >60 [facility] Comment on above: Result Comment: mL/m in/1.73m2 CKD-EPI Creatinine Equation (2020) Performed By: #### L 500.2500, L100.0100 ####[facility] [address] [place], [address] Glucose [Mass/Vol] 165 mg/dL High 70-99 [facility] Comment on above: Performed By: #### L 500.2500, L100.0100 ####[facility] [address] [place], [address] Potassium [Moles/Vol] 3.6 mmol/L Normal 3.3-5.1 [facility] Comment on above: Performed By: #### L 500.2500, L100.0100 ####[facility] [address] [place], [address] Sodium [Moles/Vol] 142 mmol/L Normal 133-145 [facility] Comment on above: Performed By: #### L 500.2500, L100.0100 ####[facility] [address] [place], [address] Urea nitrogen [Mass/Vol] 14 mg/dL Normal 4-19 [facility] Comment on above: Performed By: #### L 500.2500, L100.0100 ####[facility] [address] [place], [address] Basophil percentageOrdered B y: Miller Blank on 08-01-2024 Basophils/100 WBC (Bld) 0.3 % 0-1 [facility] Bedside Glucoseon 08-01-2024 FINGERSTICK GLU 131 mg/dL High 74-106 [facility] Comment on above: Result Comment: FATEMEH GEMENT OF PATIENT CARE PER NURSING PROTOCOL Performed By: #### L 501.080 ####[facility] [address] [place], [address] FINGERSTICK GLU 152 mg/dL High 74-106 [facility] Comment on above: Result Comment: FATMEEH GEMENT OF PATIENT CARE PER NURSING PROTOCOL Performed By: #### L 501.080 ####[facility] [address] [place], [address] CBC W/Diff, Automatedon 05-0 5-2025 Absolute Lymph 1.14 X10 3/uL Normal 0.83-4.51 [facility] Comment on above: Performed By: #### L 500.2500, L100.0100 ####[facility] [address] [place], [address] Absolute Neut 6.1 X10 3/uL Normal 2.0-7.7 [facility] Comment on above: Performed By: #### L 500.2500, L100.0100 ####[facility] [address] [place], [address] Basophils/100 WBC (Bld) 0.3 % Normal 0-1 [facility] Comment on above: Performed By: #### L 500.2500, L100.0100 ####[facility] [address] [place], [address] Eosinophils/100 WBC (Bld) 2.3 % Normal 0-5 [facility] Comment on above: Performed By: #### L 500.2500, L100.0100 ####[facility] [address] [place], [address] Erythrocyte distribution width (RBC) [Ratio] 17.6 % High 11.6-14.6 [facility] Comment on above: Performed By: #### L 500.2500, L100.0100 ####[facility] [address] [place], [address] Hematocrit (Bld) [Volume fraction] 33.4 % Low 40-54 [facility] Comment on above: Performed By: #### L 500.2500, L100.0100 ####[facility] [address] [place], [address] Hemoglobin (Bld) [Mass/Vol] 10.7 g/dL Low 13.0-16.5 [facility] Comment on above: Performed By: #### L 500.2500, L100.0100 ####[facility] [address] [place], [address] IG% 0.900 Normal 0.0-0.9 [facility] Comment on above: Result Comment: IG% - Immature Granulocytes (promyelocytes, myelocytes andmetamyelocytes) > 1% indicates that a LEFT SHIFT is Present. Performed By: #### L 500.2500, L100.0100 ####[facility] [address] [place], [address] Lymphocytes/100 WBC (Bld) 13.2 % Low 19-41 [facility] Comment on above: Performed By: #### L 500.2500, L100.0100 ####[facility] [address] [place], [address] MCH (RBC) [Entitic mass] 28.7 pg Normal 27.0-32.0 [facility] Comment on above: Performed By: #### L 500.2500, L100.0100 ####[facility] [address] [place], [address] MCHC (RBC) [Mass/Vol] 32.0 g/dL Normal 32-36 [facility] Comment on above: Performed By: #### L 500.2500, L100.0100 ####[facility] [address] [place], [address] MCV (RBC) [Entitic vol] 89.5 fL Normal 80-94 [facility] Comment on above: Performed By: #### L 500.2500, L100.0100 ####[facility] [address] [place], [address] Monocytes/100 WBC (Bld) 12.3 % High 0-10 [facility] Comment on above: Performed By: #### L 500.2500, L100.0100 ####[facility] [address] [place], [address] Neutrophils/100 WBC (Bld) 71.0 % High 47-70 [facility] Comment on above: Performed By: #### L 500.2500, L100.0100 ####[facility] [address] [place], [address] Nucleated RBC (Bld) [#/Vol] 0 10*3/uL Normal 0-5 [facility] Comment on above: Performed By: #### L 500.2500, L100.0100 ####[facility] [address] [place], [address] Platelet mean volume (Bld) [Entitic vol] 10.2 fL Normal 6.2-12.0 [facility] Comment on above: Performed By: #### L 500.2500, L100.0100 ####[facility] [address] [place], [address] Platelets (Bld) [#/Vol] 222 10*3/uL Normal 150-450 [facility] Comment on above: Performed By: #### L 500.2500, L100.0100 ####[facility] [address] [place], [address] RBC (Bld) [#/Vol] 3.73 10*6/uL Low 4.6-6.2 [facility] Comment on above: Performed By: #### L 500.2500, L100.0100 ####[facility] [address] [place], [address] RDW SD 57.0 fl High 35.1-43.9 [facility] Comment on above: Performed By: #### L 500.2500, L100.0100 ####[facility] [address] [place], [address] WBC (Bld) [#/Vol] 8.6 10*3/uL Normal 4.4-11.0 [facility] Comment on above: Performed By: #### L 500.2500, L100.0100 ####[facility] [address] [place], [address] Carbon dioxide, total [Moles /volume] in Central venous bloodOrdered By: Miller Blank on 08-01-2024 CO2 [Moles/Vol] 20.3 mmol/L Low 21.0-32.0 [facility] Chloride assayOrdered By: Keegan Blank on 08-01-2024 Chloride [Moles/Vol] 113 mmol/L High 98-108 [facility] Consultation - Urologyon Consultation - Urology Normal [facility] Eosinophil percentageOrdered By: Miller Blank on 08-01-2024 Eosinophils/100 WBC (Bld) 2.3 % 0-5 [facility] Erythrocyte distribution wid th (RBC) [Ratio]Ordered By: Miller Blank on 08-01-2024 Erythrocyte distribution width (RBC) [Entitic vol] 57.0 fL High 35.1-43.9 [facility] Erythrocyte distribution wid th ratioOrdered By: Miller Blank on 08-01-2024 Erythrocyte distribution width (RBC) [Ratio] 17.6 % High 11.6-14.6 [facility] Erythrocyte distribution wid th standard deviationOrdered By: Miller Blank on 08-01-2024 Erythrocyte distribution width (RBC) [Ratio] 57.0 fl High 35.1-43.9 [facility] Estimation of creatinine moon aranceOrdered By: Miller Blank on 08-01-2024 Estimated Creatinine Clearance Calc 73.88 ml/min 50-250 [facility] GFR/1.73 sq M.predicted elias g non-blacks MDRD (S/P/Bld) [Vol rate/Area]Ordered By: Miller Blank on 08-01-2024 Estimated GFR (MDRD) Non-Af Amer 77 >60 [facility] Comment on above: mL/min/1.73m2 CKD-EP I Creatinine Equation (2020) Glomerular filtration rate ( GFR) estimation/1.73 sq m using serum, plasma, or whole bOrdered By: Miller Blank on 08-01-2024 GFR/1.73 sq M.predicted among non-blacks MDRD (S/P/Bld) [Vol rate/Area] 77 mL/min/{1.73_m2} >60 [facility] Comment on above: mL/min/1.73m2 CKD-EP I Creatinine Equation (2020) [facility] deOrdered By: Basilio Dill on 08-01-2024 Bedside Glucose (Misc Panel) 131 mg/dL High 74-106 [facility] Comment on above: MANAGEMENT OF PATIEN T CARE PER NURSING PROTOCOL Glucose [Mass/Vol] 131 mg/dL High 74-106 [facility] Comment on above: MANAGEMENT OF PATIEN T CARE PER NURSING PROTOCOL Hematocrit Auto (Bld) [Volum e fraction]Ordered By: Miller Blank on 08-01-2024 Hematocrit (Bld) [Volume fraction] 33.4 % Low 40-54 [facility] Hemoglobin measurementOrdere d By: Miller Blank on 08-01-2024 Hemoglobin (Bld) [Mass/Vol] 10.7 g/dL Low 13.0-16.5 [facility] Immature granulocytes/100 WB C Auto (Bld)Ordered By: Miller Blank on 08-01-2024 Immature granulocytes/100 WBC (Bld) 0.900 % 0.0-0.9 [facility] Comment on above: IG% - Immature Granu locytes (promyelocytes, myelocytes and metamyelocytes) > 1% indicates that a LEFT SHIFT is Present. Kidney and Bladderon 025 Kidney and Bladder Normal [facility] Lymphocytes Auto (Unsp spec) [#/Vol]Ordered By: Miller Blank on 08-01-2024 Lymphocytes (Bld) [#/Vol] 1.14 10*3/uL 0.83-4.51 [facility] Lymphocytes/100 WBC Auto (Un sp spec)Ordered By: Miller Blank on 08-01-2024 Lymphocytes/100 WBC (Bld) 13.2 % Low 19-41 [facility] MCV (mean corpuscular volume ) determinationOrdered By: Miller Blank on 08-01-2024 MCV (RBC) [Entitic vol] 89.5 fL 80-94 [facility] Mean corpuscular hemoglobin (MCH) determinationOrdered By: Miller Blank on 08-01-2024 MCH (RBC) [Entitic mass] 28.7 pg 27.0-32.0 [facility] Mean corpuscular hemoglobin concentration (MCHC) determinationOrdered By: Miller Blank on 08-01-2024 MCHC (RBC) [Mass/Vol] 32.0 g/dL 32-36 [facility] Mean platelet volume determi nationOrdered By: Miller Blank on 08-01-2024 Platelet mean volume (Bld) [Entitic vol] 10.2 fL 6.2-12.0 [facility] Monocyte percentageOrdered B y: Miller Blank on 08-01-2024 Monocytes/100 WBC (Bld) 12.3 % High 0-10 [facility] Neutrophil percentageOrdered By: Miller Blank on 08-01-2024 Neutrophils/100 WBC (Bld) 71.0 % High 47-70 [facility] Nucleated red blood cell per centageOrdered By: Miller Blank on 08-01-2024 Nucleated RBC/100 WBC (Bld) [Ratio] 0 % 0-5 [facility] Platelet countOrdered By: Keegan Blank on 08-01-2024 Platelets (Bld) [#/Vol] 222 10*3/uL 150-450 [facility] Potassium (Unsp spec) [Mass/ Vol]Ordered By: Miller Blank on 08-01-2024 Potassium [Moles/Vol] 3.6 mmol/L 3.3-5.1 [facility] Potassium measurement (mass/ volume)Ordered By: Miller Blank on 08-01-2024 Potassium (Unsp spec) [Mass/Vol] 3.6 mmol/L 3.3-5.1 [facility] RBC Auto (Bld) [#/Vol]Ordere d By: Miller Blank on 08-01-2024 RBC (Bld) [#/Vol] 3.73 10*6/uL Low 4.6-6.2 [facility] Serum creatinine measurement (mass/volume)Ordered By: Miller Blank on 08-01-2024 Creatinine [Mass/Vol] 1.06 mg/dL 0.70-1.20 [facility] Serum glucose measurement (m ass/volume)Ordered By: Miller Blank on 08-01-2024 Glucose [Mass/Vol] 165 mg/dL High 70-99 [facility] Serum or plasma calcium marlyn urement (mass/volume)Ordered By: Miller Blank on 08-01-2024 Calcium [Mass/Vol] 8.7 mg/dL 7.6-11.0 [facility] Serum or plasma urea nitroge n measurement (mass/volume)Ordered By: Miller Blank on 08-01-2024 Urea nitrogen [Mass/Vol] 14 mg/dL 4-19 [facility] Sodium levelOrdered By: Gerardo Blank on 08-01-2024 Sodium [Moles/Vol] 142 mmol/L 133-145 [facility] Trough vancomycin levelOrder ed By: Miller Blank on 08-01-2024 Vancomycin trough [Mass/Vol] 23.9 ug/mL High 5.0-15.0 [facility] Comment on above: Recommended goal tro ugh ranges are generally 10-15 mcg/ml for less severe/complicated infections such as cellulitis or UTI and 15-20 mcg/ml for more severe/complicated infections such as bacteremia/sepsis, osteomyelitis, pneumonia or meningitis. Goal trough ranges should take into account indication, patient-specific factors and organism DNENYS.VANCOMYCIN STANDARED DRUG THERAPY TROUGH LEVEL: 5.0 - 15.0 mg/L VANCOMYCIN HIGH INTENSITY THERAPY TROUGH LEVEL: 15.0 - 20.0 mg/L High Intensity therapy recommended for serious lifethreatening infections include:- Cfcunizaja-Pbeiznvkyjzs-Cuhsmuumh (Ventilator/Healtcare Associated)-Sepsis PLEASE CONTACT PHARMACY SERVICES (#[id number]) FOR INTERPRETATIONOF RESULTS. Vancomycin trough [Mass/Vol] Ordered By: Miller Blank on 08-01-2024 Vancomycin Level Trough 23.9 ug/mL High 5.0-15.0 [facility] Comment on above: Recommended goal [...] therapy recommended for serious lifethreatening infections include:- Qcnnbuvuvw-Jmtjquyuetia-Bvnmwgohm (Ventilator/Healtcare Associated)-Sepsis PLEASE CONTACT PHARMACY SERVICES (#[id number]) FOR INTERPRETATIONOF RESULTS. Vancomycin, Trough Levelon 0 08-01-2024 VANCO, TROUGH 23.9 ug/mL High 5.0-15.0 [facility] Comment on above: Order Comment: Comme nts: Trough to be drawn 30 mins prior to scheduled [id number] Result Comment: Jhon mmended goal trough ranges [...] therapy recommended for serious lifethreatening infections include:- Cndvuubqlr-Lqhnztyhwbmj-Kygchadbl (Ventilator/Healtcare Associated)-SepsisPLEASE CONTACT PHARMACY SERVICES (#[id number]) FOR INTERPRETATIONOF RESULTS. Performed By: #### L 501.8886 ####[facility] [address] [place], [address] Venous blood ammonia measure mentOrdered By: Isha Zurita on 08-01-2024 Ammonia (P) [Moles/Vol] 43.8 umol/L 16-60 [facility] White blood cell (WBC) count Ordered By: Miller Blank on 08-01-2024 WBC (Bld) [#/Vol] 8.6 10*3/uL 4.4-11.0 [facility] Basic Metabolic Profile (BMP )on 07-31-2024 BUN/CRE 14.8 RATIO Normal 10-20 [facility] Comment on above: Performed By: #### L 100.0100, L501.2300, L500.2500, L501.5200 ####[facility] [address] [place], [address] Calcium [Mass/Vol] 8.8 mg/dL Normal 7.6-11.0 [facility] Comment on above: Performed By: #### L 100.0100, L501.2300, L500.2500, L501.5200 ####[facility] [address] [place], [address] Chloride [Moles/Vol] 111 mmol/L High 98-108 [facility] Comment on above: Performed By: #### L 100.0100, L501.2300, L500.2500, L501.5200 ####[facility] [address] [place], [address] CO2 [Moles/Vol] 19.9 mmol/L Low 21.0-32.0 [facility] Comment on above: Performed By: #### L 100.0100, L501.2300, L500.2500, L501.5200 ####[facility] [address] [place], [address] Creatinine [Mass/Vol] 0.89 mg/dL Normal 0.70-1.20 [facility] Comment on above: Performed By: #### L 100.0100, L501.2300, L500.2500, L501.5200 ####[facility] [address] [place], [address] ECRCL 88.54 ml/min Normal 50-250 [facility] Comment on above: Performed By: #### L 100.0100, L501.2300, L500.2500, L501.5200 ####[facility] [address] [place], [address] GAP 10 Normal 5-15 [facility] Comment on above: Performed By: #### L 100.0100, L501.2300, L500.2500, L501.5200 ####[facility] [address] [place], [address] GFR/1.73 sq M.predicted among non-blacks MDRD (S/P/Bld) [Vol rate/Area] 94 mL/min/{1.73_m2} Normal >60 [facility] Comment on above: Result Comment: mL/m in/1.73m2 CKD-EPI Creatinine Equation (2020) Performed By: #### L 100.0100, L501.2300, L500.2500, L501.5200 ####[facility] [address] [place], [address] Glucose [Mass/Vol] 149 mg/dL High 70-99 [facility] Comment on above: Performed By: #### L 100.0100, L501.2300, L500.2500, L501.5200 ####[facility] [address] [place], [address] Potassium [Moles/Vol] 3.6 mmol/L Normal 3.3-5.1 [facility] Comment on above: Performed By: #### L 100.0100, L501.2300, L500.2500, L501.5200 ####[facility] [address] [place], [address] Sodium [Moles/Vol] 140 mmol/L Normal 133-145 [facility] Comment on above: Performed By: #### L 100.0100, L501.2300, L500.2500, L501.5200 ####[facility] [address] [place], [address] Urea nitrogen [Mass/Vol] 13 mg/dL Normal 4-19 [facility] Comment on above: Performed By: #### L 100.0100, L501.2300, L500.2500, L501.5200 ####[facility] [address] [place], [address] Bedside Glucoseon 07-31-2024 FINGERSTICK GLU 140 mg/dL High 74-106 [facility] Comment on above: Result Comment: FATEMEH GEMENT OF PATIENT CARE PER NURSING PROTOCOL Performed By: #### L 501.080 ####[facility] [address] [place], [address] FINGERSTICK GLU 166 mg/dL High 74-106 [facility] Comment on above: Result Comment: FATEMEH GEMENT OF PATIENT CARE PER NURSING PROTOCOL Performed By: #### L 501.080 ####[facility] [address] [place], [address] FINGERSTICK GLU 185 mg/dL High 74-106 [facility] Comment on above: Result Comment: FATEMEH GEMENT OF PATIENT CARE PER NURSING PROTOCOL Performed By: #### L 501.080 ####[facility] [address] [place], [address] FINGERSTICK GLU 139 mg/dL High 74-106 [facility] Comment on above: Result Comment: FATEMEH GEMENT OF PATIENT CARE PER NURSING PROTOCOL Performed By: #### L 501.080 ####[facility] [address] [place], [address] FINGERSTICK GLU 162 mg/dL High 74-106 [facility] Comment on above: Result Comment: FATEMEH GEMENT OF PATIENT CARE PER NURSING PROTOCOL Performed By: #### L 501.080 ####[facility] [address] [place], [address] CBC W/Diff, Automatedon 05-0 4-2025 Absolute Lymph 0.96 X10 3/uL Normal 0.83-4.51 [facility] Comment on above: Performed By: #### L 100.0100, L501.2300, L500.2500, L501.5200 ####[facility] [address] [place], [address] Absolute Neut 9.0 X10 3/uL High 2.0-7.7 [facility] Comment on above: Performed By: #### L 100.0100, L501.2300, L500.2500, L501.5200 ####[facility] [address] [place], [address] Basophils/100 WBC (Bld) 0.3 % Normal 0-1 [facility] Comment on above: Performed By: #### L 100.0100, L501.2300, L500.2500, L501.5200 ####[facility] [address] [place], [address] Eosinophils/100 WBC (Bld) 1.8 % Normal 0-5 [facility] Comment on above: Performed By: #### L 100.0100, L501.2300, L500.2500, L501.5200 ####[facility] [address] [place], [address] Erythrocyte distribution width (RBC) [Ratio] 17.2 % High 11.6-14.6 [facility] Comment on above: Performed By: #### L 100.0100, L501.2300, L500.2500, L501.5200 ####[facility] [address] [place], [address] Hematocrit (Bld) [Volume fraction] 34.1 % Low 40-54 [facility] Comment on above: Performed By: #### L 100.0100, L501.2300, L500.2500, L501.5200 ####[facility] [address] [place], [address] Hemoglobin (Bld) [Mass/Vol] 11.0 g/dL Low 13.0-16.5 [facility] Comment on above: Performed By: #### L 100.0100, L501.2300, L500.2500, L501.5200 ####[facility] [address] [place], [address] IG% 0.600 Normal 0.0-0.9 [facility] Comment on above: Result Comment: IG% - Immature Granulocytes (promyelocytes, myelocytes andmetamyelocytes) > 1% indicates that a LEFT SHIFT is Present. Performed By: #### L 100.0100, L501.2300, L500.2500, L501.5200 ####[facility] [address] [place], [address] Lymphocytes/100 WBC (Bld) 8.7 % Low 19-41 [facility] Comment on above: Performed By: #### L 100.0100, L501.2300, L500.2500, L501.5200 ####[facility] [address] [place], [address] MCH (RBC) [Entitic mass] 28.6 pg Normal 27.0-32.0 [facility] Comment on above: Performed By: #### L 100.0100, L501.2300, L500.2500, L501.5200 ####[facility] [address] [place], [address] MCHC (RBC) [Mass/Vol] 32.3 g/dL Normal 32-36 [facility] Comment on above: Performed By: #### L 100.0100, L501.2300, L500.2500, L501.5200 ####[facility] [address] [place], [address] MCV (RBC) [Entitic vol] 88.6 fL Normal 80-94 [facility] Comment on above: Performed By: #### L 100.0100, L501.2300, L500.2500, L501.5200 ####[facility] [address] [place], [address] Monocytes/100 WBC (Bld) 7.3 % Normal 0-10 [facility] Comment on above: Performed By: #### L 100.0100, L501.2300, L500.2500, L501.5200 ####[facility] [address] [place], [address] Neutrophils/100 WBC (Bld) 81.3 % High 47-70 [facility] Comment on above: Performed By: #### L 100.0100, L501.2300, L500.2500, L501.5200 ####[facility] [address] [place], [address] Nucleated RBC (Bld) [#/Vol] 0 10*3/uL Normal 0-5 [facility] Comment on above: Performed By: #### L 100.0100, L501.2300, L500.2500, L501.5200 ####[facility] [address] [place], [address] Platelet mean volume (Bld) [Entitic vol] 9.6 fL Normal 6.2-12.0 [facility] Comment on above: Performed By: #### L 100.0100, L501.2300, L500.2500, L501.5200 ####[facility] [address] [place], [address] Platelets (Bld) [#/Vol] 239 10*3/uL Normal 150-450 [facility] Comment on above: Performed By: #### L 100.0100, L501.2300, L500.2500, L501.5200 ####[facility] [address] [place], [address] RBC (Bld) [#/Vol] 3.85 10*6/uL Low 4.6-6.2 [facility] Comment on above: Performed By: #### L 100.0100, L501.2300, L500.2500, L501.5200 ####[facility] [address] [place], [address] RDW SD 55.7 fl High 35.1-43.9 [facility] Comment on above: Performed By: #### L 100.0100, L501.2300, L500.2500, L501.5200 ####[facility] [address] [place], [address] WBC (Bld) [#/Vol] 11.1 10*3/uL High 4.4-11.0 [facility] Comment on above: Performed By: #### L 100.0100, L501.2300, L500.2500, L501.5200 ####[facility] [address] [place], [address] Magnesiumon 07-31-2024 Magnesium [Mass/Vol] 1.8 mg/dL Normal 1.5-2.2 [facility] Comment on above: Performed By: #### L 100.0100, L501.2300, L500.2500, L501.5200 ####[facility] [address] [place], [address] Magnesium (Unsp spec) [Mass/ Vol]Ordered By: Miller Blank on 07-31-2024 Magnesium [Mass/Vol] 1.8 mg/dL 1.5-2.2 [facility] Magnesium measurement (mass/ volume)Ordered By: Miller Blank on 07-31-2024 Magnesium (Unsp spec) [Mass/Vol] 1.8 mg/dL 1.5-2.2 [facility] Phosphoruson 07-31-2024 Phosphate [Mass/Vol] 2.8 mg/dL Normal 2.7-4.5 [facility] Comment on above: Performed By: #### L 100.0100, L501.2300, L500.2500, L501.5200 ####[facility] [address] [place], [place], [address] Serum phosphorus measurement Ordered By: Miller Blank on 07-31-2024 Phosphorus Level 2.8 mg/dL 2.7-4.5 [facility] Vancomycin, Trough Levelon 0 07-31-2024 VANCO, TROUGH 19.4 ug/mL High 5.0-15.0 [facility] Comment on above: Order Comment: Comme nts: Trough to be drawn 30 mins prior to scheduled [id number] Result Comment: Jhon mmended goal trough ranges [...] therapy recommended for serious lifethreatening infections include:- Spjzqunovz-Xpxnplvndtme-Kntzfrxqt (Ventilator/Healtcare Associated)-SepsisPLEASE CONTACT PHARMACY SERVICES (#7825) FOR INTERPRETATIONOF RESULTS. Performed By: #### L 501.8820 ####[facility] [address] [place], [place], [address] Bedside Glucoseon 07-30-2024 FINGERSTICK GLU 134 mg/dL High 74-106 [facility] Comment on above: Result Comment: FATEMEH MILLER OF PATIENT CARE PER NURSING PROTOCOL Performed By: #### L 501.080 ####[facility] [address] [place], [address] FINGERSTICK GLU 151 mg/dL High 74-106 [facility] Comment on above: Result Comment: FATEMEH MILLER OF PATIENT CARE PER NURSING PROTOCOL Performed By: #### L 501.080 ####[facility] [address] [place], [address] Bilirubin, totalOrdered By: Isha Zurita on 07-30-2024 Bilirubin [Mass/Vol] 0.28 mg/dL 0.00-1.30 [facility] Blood manual differential co mment interpretation (narrative result)Ordered By: Isha Zurita on 07-30-2024 Manual differential comment Dmitriy (Bld) [Interp] SCANNED [facility] Comment on above: SLIGHT MONOCYTOSIS N OTED CBC W/Diff, Automatedon SMEAR COMMENT SCANNED Normal [facility] Comment on above: Result Comment: SLIG HT MONOCYTOSIS NOTED Performed By: #### L 501.9985, L100.0100, L500.4050 ####[facility] [address] [place], [address] Comprehensive Metabolic Prof ilon 07-30-2024 Albumin [Mass/Vol] 3.0 g/dL Low 3.4-4.8 [facility] Comment on above: Performed By: #### L 501.9985, L100.0100, L500.4050 ####[facility] [address] [place], [address] Albumin/Globulin [Mass ratio] 1.0 {ratio} Normal 0.9-2.4 [facility] Comment on above: Performed By: #### L 501.9985, L100.0100, L500.4050 ####[facility] [address] [place], [address] ALK PHOS 95 U/L Normal 40-129 [facility] Comment on above: Performed By: #### L 501.9985, L100.0100, L500.4050 ####[facility] [address] [place], [address] ALT [Catalytic activity/Vol] 16 U/L Normal <=46 [facility] Comment on above: Performed By: #### L 501.9985, L100.0100, L500.4050 ####[facility] [address] [place], [address] AST [Catalytic activity/Vol] 14 U/L Normal <=37 [facility] Comment on above: Performed By: #### L 501.9985, L100.0100, L500.4050 ####[facility] [address] [place], [address] Bilirubin [Mass/Vol] 0.28 mg/dL Normal 0.00-1.30 [facility] Comment on above: Performed By: #### L 501.9985, L100.0100, L500.4050 ####[facility] [address] [place], [address] BUN/CRE 16.0 RATIO Normal 10-20 [facility] Comment on above: Performed By: #### L 501.9985, L100.0100, L500.4050 ####[facility] [address] [place], [address] Calcium [Mass/Vol] 8.3 mg/dL Normal 7.6-11.0 [facility] Comment on above: Performed By: #### L 501.9985, L100.0100, L500.4050 ####[facility] [address] [place], [address] Chloride [Moles/Vol] 112 mmol/L High 98-108 [facility] Comment on above: Performed By: #### L 501.9985, L100.0100, L500.4050 ####[facility] [address] [place], [address] CO2 [Moles/Vol] 20.2 mmol/L Low 21.0-32.0 [facility] Comment on above: Performed By: #### L 501.9985, L100.0100, L500.4050 ####[facility] [address] [place], [address] Creatinine [Mass/Vol] 0.53 mg/dL Low 0.70-1.20 [facility] Comment on above: Performed By: #### L 501.9985, L100.0100, L500.4050 ####[facility] [address] [place], [address] ECRCL 98.55 ml/min Normal 50-250 [facility] Comment on above: Performed By: #### L 501.9985, L100.0100, L500.4050 ####[facility] [address] [place], [address] GAP 10 Normal 5-15 [facility] Comment on above: Performed By: #### L 501.9985, L100.0100, L500.4050 ####[facility] [address] [place], [address] GFR/1.73 sq M.predicted among non-blacks MDRD (S/P/Bld) [Vol rate/Area] 110 mL/min/{1.73_m2} Normal >60 [facility] Comment on above: Result Comment: mL/m in/1.73m2 CKD-EPI Creatinine Equation (2020) Performed By: #### L 501.9985, L100.0100, L500.4050 ####[facility] [address] [place], [address] Globulin (S) [Mass/Vol] 2.9 g/dL Normal 2.2-4.2 [facility] Comment on above: Performed By: #### L 501.9985, L100.0100, L500.4050 ####[facility] [address] [place], [address] Glucose [Mass/Vol] 144 mg/dL High 70-99 [facility] Comment on above: Performed By: #### L 501.9985, L100.0100, L500.4050 ####[facility] [address] [place], [address] Potassium [Moles/Vol] 3.7 mmol/L Normal 3.3-5.1 [facility] Comment on above: Performed By: #### L 501.9985, L100.0100, L500.4050 ####[facility] [address] [place], [address] Sodium [Moles/Vol] 141 mmol/L Normal 133-145 [facility] Comment on above: Performed By: #### L 501.9985, L100.0100, L500.4050 ####[facility] [address] [place], [address] T PROT 5.8 g/dL Low 5.9-8.4 [facility] Comment on above: Performed By: #### L 501.9985, L100.0100, L500.4050 ####[facility] [address] [place], [address] Urea nitrogen [Mass/Vol] 9 mg/dL Normal 4-19 [facility] Comment on above: Performed By: #### L 501.9985, L100.0100, L500.4050 ####[facility] [address] [place], [address] Hemoglobin A1con 07-30-2024 HbA1c (Bld) [Mass fraction] 7.1 % High <=5.6 [facility] Comment on above: Result Comment: Norm al < 5.7 % Prediabetic 5.7 - 6.4 % Diabetic >or= 6.5 % Please note range changes. Performed By: #### L 501.9985, L100.0100, L500.4050 ####[facility] [address] [place], [place], [address] Hemoglobin A1c percentageOrd ered By: Isha Zurita on 07-30-2024 HbA1c (Bld) [Mass fraction] 7.1 % High <5.7 [facility] Comment on above: Normal < 5.7 % Predi abetic 5.7 - 6.4 % Diabetic >or= 6.5 % Please note range changes. Laboratory - Chemistry and C hemistry - challengeOrdered By: Isha Zurita on 07-30-2024 AST [Catalytic activity/Vol] 14 U/L <38 [facility] Lactic Acidon 07-30-2024 Lactate [Moles/Vol] 1.7 mmol/L Normal 0.0-2.0 [facility] Comment on above: Performed By: #### L 503.6002 ####[facility] [address] [facility] [address] [place], [place], [id number] Lactic acid measurementOrder ed By: Andre Ferreira on 07-30-2024 Lactate [Moles/Vol] 1.7 mmol/L 0.0-2.0 [facility] Manual differential comment Dmitriy (Bld) [Interp]Ordered By: Isha Zurita on 07-30-2024 Differential Comment SCANNED [facility] Comment on above: SLIGHT MONOCYTOSIS N OTED No Panel InformationOrdered By: Isha Zurita on 07-30-2024 14 U/L <38 [facility] Serum globulin measurementOr dered By: Isha Zurita on 07-30-2024 Globulin (S) [Mass/Vol] 2.9 g/dL 2.2-4.2 [facility] Serum or plasma alanine orozco otransferase (ALT) measurementOrdered By: Isha Zurita on 07-30-2024 ALT [Catalytic activity/Vol] 16 U/L <47 [facility] Serum or plasma albumin marlyn urement (mass/volume)Ordered By: Isha Zurita on 07-30-2024 Albumin [Mass/Vol] 3.0 g/dL Low 3.4-4.8 [facility] Serum or plasma albumin/glob ulin mass ratioOrdered By: Isha Zurita on 07-30-2024 Albumin/Globulin [Mass ratio] 1.0 {ratio} 0.9-2.4 [facility] Serum or plasma alkaline marisol sphatase measurementOrdered By: Isha Zurita on 07-30-2024 ALP [Catalytic activity/Vol] 95 U/L 40-129 [facility] Total proteinOrdered By: Suzette Zurita on 07-30-2024 Protein [Mass/Vol] 5.8 g/dL Low 5.9-8.4 [facility] 12 Lead EKGon 07-29-2024 12 Lead EKG Normal [facility] 36on 07-29-2024 36 S: Patient's spouse [...] result.) Protocols used: PCP Call - [id number] Activated partial thrombopla stin time (aPTT) in platelet poor plasma by coagulation aOrdered By: Andre Ferreira on 07-29-2024 aPTT Coag (PPP) [Time] 30.0 s 24.1-36.2 [facility] Bilirubin Test strip Ql (U)O rdered By: Andre Ferreira on 07-29-2024 Bilirubin Ql (U) Negative Negative [facility] Blood cultureOrdered By: Adama Ferreira on 07-29-2024 Bacteria identified Cx Nom (Bld) No growth in 5 days. [facility] Bacteria identified Cx Nom (Bld) No growth in 5 days. [facility] CBC W/Diff, Automatedon 05-0 2-2025 Absolute Lymph 1.10 X10 3/uL Normal 0.83-4.51 [facility] Comment on above: Performed By: #### M 200.1000, L100.0100, L300.4310, L300.3900, L503.6005, L500.4050 ####[facility] [address] [place], [address] Absolute Neut 17.3 X10 3/uL High 2.0-7.7 [facility] Comment on above: Performed By: #### M 200.1000, L100.0100, L300.4310, L300.3900, L503.6005, L500.4050 ####[facility] [address] [place], [address] Basophils/100 WBC (Bld) 0.3 % Normal 0-1 [facility] Comment on above: Performed By: #### M 200.1000, L100.0100, L300.4310, L300.3900, L503.6005, L500.4050 ####[facility] [address] [place], [address] Eosinophils/100 WBC (Bld) 0.4 % Normal 0-5 [facility] Comment on above: Performed By: #### M 200.1000, L100.0100, L300.4310, L300.3900, L503.6005, L500.4050 ####[facility] [address] [place], [address] Erythrocyte distribution width (RBC) [Ratio] 17.1 % High 11.6-14.6 [facility] Comment on above: Performed By: #### M 200.1000, L100.0100, L300.4310, L300.3900, L503.6005, L500.4050 ####[facility] [address] [place], [address] Hematocrit (Bld) [Volume fraction] 39.6 % Low 40-54 [facility] Comment on above: Performed By: #### M 200.1000, L100.0100, L300.4310, L300.3900, L503.6005, L500.4050 ####[facility] [address] [place], [address] Hemoglobin (Bld) [Mass/Vol] 13.0 g/dL Normal 13.0-16.5 [facility] Comment on above: Performed By: #### M 200.1000, L100.0100, L300.4310, L300.3900, L503.6005, L500.4050 ####[facility] [address] [place], [address] IG% 0.900 Normal 0.0-0.9 [facility] Comment on above: Result Comment: IG% - Immature Granulocytes (promyelocytes, myelocytes andmetamyelocytes) > 1% indicates that a LEFT SHIFT is Present. Performed By: #### M 200.1000, L100.0100, L300.4310, L300.3900, L503.6005, L500.4050 ####[facility] [address] [place], [address] Lymphocytes/100 WBC (Bld) 5.5 % Low 19-41 [facility] Comment on above: Performed By: #### M 200.1000, L100.0100, L300.4310, L300.3900, L503.6005, L500.4050 ####[facility] [address] [place], [address] MCH (RBC) [Entitic mass] 29.1 pg Normal 27.0-32.0 [facility] Comment on above: Performed By: #### M 200.1000, L100.0100, L300.4310, L300.3900, L503.6005, L500.4050 ####[facility] [address] [place], [address] MCHC (RBC) [Mass/Vol] 32.8 g/dL Normal 32-36 [facility] Comment on above: Performed By: #### M 200.1000, L100.0100, L300.4310, L300.3900, L503.6005, L500.4050 ####[facility] [address] [place], [address] MCV (RBC) [Entitic vol] 88.6 fL Normal 80-94 [facility] Comment on above: Performed By: #### M 200.1000, L100.0100, L300.4310, L300.3900, L503.6005, L500.4050 ####[facility] [address] [place], [address] Monocytes/100 WBC (Bld) 6.2 % Normal 0-10 [facility] Comment on above: Performed By: #### M 200.1000, L100.0100, L300.4310, L300.3900, L503.6005, L500.4050 ####[facility] [address] [place], [address] Neutrophils/100 WBC (Bld) 86.7 % High 47-70 [facility] Comment on above: Performed By: #### M 200.1000, L100.0100, L300.4310, L300.3900, L503.6005, L500.4050 ####[facility] [address] [place], [address] Nucleated RBC (Bld) [#/Vol] 0 10*3/uL Normal 0-5 [facility] Comment on above: Performed By: #### M 200.1000, L100.0100, L300.4310, L300.3900, L503.6005, L500.4050 ####[facility] [address] [place], [address] Platelet mean volume (Bld) [Entitic vol] 9.8 fL Normal 6.2-12.0 [facility] Comment on above: Performed By: #### M 200.1000, L100.0100, L300.4310, L300.3900, L503.6005, L500.4050 ####[facility] [address] [place], [address] Platelets (Bld) [#/Vol] 309 10*3/uL Normal 150-450 [facility] Comment on above: Performed By: #### M 200.1000, L100.0100, L300.4310, L300.3900, L503.6005, L500.4050 ####[facility] [address] [place], [address] RBC (Bld) [#/Vol] 4.47 10*6/uL Low 4.6-6.2 [facility] Comment on above: Performed By: #### M 200.1000, L100.0100, L300.4310, L300.3900, L503.6005, L500.4050 ####[facility] [address] [place], [address] RDW SD 55.2 fl High 35.1-43.9 [facility] Comment on above: Performed By: #### M 200.1000, L100.0100, L300.4310, L300.3900, L503.6005, L500.4050 ####[facility] [address] [place], [address] WBC (Bld) [#/Vol] 19.9 10*3/uL High 4.4-11.0 [facility] Comment on above: Performed By: #### M 200.1000, L100.0100, L300.4310, L300.3900, L503.6005, L500.4050 ####[facility] [address] [place], [address] Chest PA and Lateralon 07-29 Chest PA and Lateral Normal [facility] Comprehensive Metabolic Prof ilon 07-29-2024 Albumin [Mass/Vol] 3.4 g/dL Normal 3.4-4.8 [facility] Comment on above: Performed By: #### M 200.1000, L100.0100, L300.4310, L300.3900, L503.6005, L500.4050 ####[facility] [address] [place], [address] Albumin/Globulin [Mass ratio] 0.8 {ratio} Low 0.9-2.4 [facility] Comment on above: Performed By: #### M 200.1000, L100.0100, L300.4310, L300.3900, L503.6005, L500.4050 ####[facility] [address] [place], [address] ALK PHOS 119 U/L Normal 40-129 [facility] Comment on above: Performed By: #### M 200.1000, L100.0100, L300.4310, L300.3900, L503.6005, L500.4050 ####[facility] [address] [place], [address] ALT [Catalytic activity/Vol] 20 U/L Normal <=46 [facility] Comment on above: Performed By: #### M 200.1000, L100.0100, L300.4310, L300.3900, L503.6005, L500.4050 ####[facility] [address] [place], [address] AST [Catalytic activity/Vol] 15 U/L Normal <=37 [facility] Comment on above: Performed By: #### M 200.1000, L100.0100, L300.4310, L300.3900, L503.6005, L500.4050 ####[facility] [address] [place], [address] Bilirubin [Mass/Vol] 0.24 mg/dL Normal 0.00-1.30 [facility] Comment on above: Performed By: #### M 200.1000, L100.0100, L300.4310, L300.3900, L503.6005, L500.4050 ####[facility] [address] [place], [address] BUN/CRE 14.8 RATIO Normal 10-20 [facility] Comment on above: Performed By: #### M 200.1000, L100.0100, L300.4310, L300.3900, L503.6005, L500.4050 ####[facility] [address] [place], [address] Calcium [Mass/Vol] 9.2 mg/dL Normal 7.6-11.0 [facility] Comment on above: Performed By: #### M 200.1000, L100.0100, L300.4310, L300.3900, L503.6005, L500.4050 ####[facility] [address] [place], [address] Chloride [Moles/Vol] 104 mmol/L Normal 98-108 [facility] Comment on above: Performed By: #### M 200.1000, L100.0100, L300.4310, L300.3900, L503.6005, L500.4050 ####[facility] [address] [place], [address] CO2 [Moles/Vol] 22.9 mmol/L Normal 21.0-32.0 [facility] Comment on above: Performed By: #### M 200.1000, L100.0100, L300.4310, L300.3900, L503.6005, L500.4050 ####[facility] [address] [place], [address] Creatinine [Mass/Vol] 0.83 mg/dL Normal 0.70-1.20 [facility] Comment on above: Performed By: #### M 200.1000, L100.0100, L300.4310, L300.3900, L503.6005, L500.4050 ####[facility] [address] [place], [address] ECRCL 95.77 ml/min Normal 50-250 [facility] Comment on above: Performed By: #### M 200.1000, L100.0100, L300.4310, L300.3900, L503.6005, L500.4050 ####[facility] [address] [place], [address] GAP 13 Normal 5-15 [facility] Comment on above: Performed By: #### M 200.1000, L100.0100, L300.4310, L300.3900, L503.6005, L500.4050 ####[facility] [address] [place], [address] GFR/1.73 sq M.predicted among non-blacks MDRD (S/P/Bld) [Vol rate/Area] 96 mL/min/{1.73_m2} Normal >60 [facility] Comment on above: Result Comment: mL/m in/1.73m2 CKD-EPI Creatinine Equation (2020) Performed By: #### M 200.1000, L100.0100, L300.4310, L300.3900, L503.6005, L500.4050 ####[facility] [address] [place], [address] Globulin (S) [Mass/Vol] 4.3 g/dL High 2.2-4.2 [facility] Comment on above: Performed By: #### M 200.1000, L100.0100, L300.4310, L300.3900, L503.6005, L500.4050 ####[facility] [address] [place], [address] Glucose [Mass/Vol] 183 mg/dL High 70-99 [facility] Comment on above: Performed By: #### M 200.1000, L100.0100, L300.4310, L300.3900, L503.6005, L500.4050 ####[facility] [address] [place], [address] Potassium [Moles/Vol] 3.8 mmol/L Normal 3.3-5.1 [facility] Comment on above: Performed By: #### M 200.1000, L100.0100, L300.4310, L300.3900, L503.6005, L500.4050 ####[facility] [address] [place], [address] Sodium [Moles/Vol] 140 mmol/L Normal 133-145 [facility] Comment on above: Performed By: #### M 200.1000, L100.0100, L300.4310, L300.3900, L503.6005, L500.4050 ####[facility] [address] [place], [address] T PROT 7.8 g/dL Normal 5.9-8.4 [facility] Comment on above: Performed By: #### M 200.1000, L100.0100, L300.4310, L300.3900, L503.6005, L500.4050 ####[facility] [address] [place], [address] Urea nitrogen [Mass/Vol] 12 mg/dL Normal 4-19 [facility] Comment on above: Performed By: #### M 200.1000, L100.0100, L300.4310, L300.3900, L503.6005, L500.4050 ####[facility] [address] [place], [place], [address] Emergency Department Summary on 07-29-2024 Emergency Department Summary Normal [facility] Epithelial cells.squamous LM Ql (Urine sed)Ordered By: Andre Ferreira on 07-29-2024 Epithelial cells.squamous LM.HPF (Urine sed) [#/Area] 0 /[HPF] 0-5 [facility] Glucose Ql (U)Ordered By: Emeka Ferreira on 07-29-2024 Glucose (U) [Mass/Vol] 250 mg/dL High Normal [facility] H AND P Exam - Hospitaliston 07-29-2024 H&P Exam - Hospitalist Normal [facility] Influenza virus A and B and SARS-CoV-2 (COVID-19) and Respiratory syncytial virus RNAOrdered By: Andre Ferreira on 07-29-2024 SARS-CoV-2 (COVID-19) RNA IMER+probe Ql (Unsp spec) [facility] International normalized rat io (INR) calculationOrdered By: Andre Ferreira on 07-29-2024 INR Coag (Bld) [Relative time] 1.0 {INR} [facility] Ketones Test strip Ql (U)Ord ered By: Andre Ferreira on 07-29-2024 Ketones Ql (U) 5 mg/dl High Negative [facility] Lactic Acidon 07-29-2024 Lactate [Moles/Vol] 3.0 mmol/L Invalid Interpretation Code 0.0-2.0 [facility] Comment on above: Order Comment: Y Result Comment: Crit ical Result(s) Called DTENNANT at: 0 by:VILMA??Results read back by same. Performed By: #### M 200.1000, L100.0100, L300.4310, L300.3900, L503.6005, L500.4050 ####[facility] [address] [place], [address] M100.678on 07-29-2024 M100.678 Pending SARS-CoV-2 (COVID 19) Negative INFLUENZA A Negative INFLUENZA B Negative RSV PCR Negative Normal [facility] Comment on above: Performed By: #### M 100.678 ####[facility] [address] [place], [address] Microscopic analysis of urin e for red blood cells (RBC)Ordered By: Andre Ferreira on 07-29-2024 Microscopic analysis of urine for red blood cells (RBC) 10-25 SEEN /hpf 0-5 [facility] Urine RBC 10-25 SEEN /hpf 0-5 [facility] Mucus LM Ql (Urine sed)Order ed By: Andre Ferreira on 07-29-2024 Mucus Ql (Urine sed) 0 SEEN /hpf [facility] Nitrite Test strip Ql (U)Ord ered By: Andre Ferreira on 07-29-2024 Nitrite Ql (U) Positive High Negative [facility] Partial Thromboplast Timeon 07-29-2024 aPTT Coag (Bld) [Time] 30.0 s Normal 24.1-36.2 [facility] Comment on above: Performed By: #### M 200.1000, L100.0100, L300.4310, L300.3900, L503.6005, L500.4050 ####[facility] [address] [place], [address] Protein Test strip Ql (U)Ord ered By: Andre Ferreira on 07-29-2024 Protein Ql (U) 100 mg/dl High Negative [facility] Prothrombin Time w/INRon INR Coag (PPP) [Relative time] 1.0 {INR} Normal [facility] Comment on above: Performed By: #### M 200.1000, L100.0100, L300.4310, L300.3900, L503.6005, L500.4050 ####[facility] [address] [place], [address] PT Coag (PPP) [Time] 13.7 s Normal 11.7-14.9 [facility] Comment on above: Performed By: #### M 200.1000, L100.0100, L300.4310, L300.3900, L503.6005, L500.4050 ####[facility] [address] [place], [address] Prothrombin timeOrdered By: Andre Ferreira on 07-29-2024 PT Coag (PPP) [Time] 13.7 s 11.7-14.9 [facility] Squamous epithelial cells de tection in urine sediment by light microscopyOrdered By: Andre Ferreira on 07-29-2024 Epithelial cells.squamous LM Ql (Urine sed) 0-5 SEEN /hpf 0-5 [facility] Urinalysis, Completeon 07-29 EPI,SQUAMOUS 0-5 SEEN Normal 0-5 [facility] Comment on above: Order Comment: LACIE CTOR TO SPECIFY Performed By: #### L 400.0001, M100.2200 ####[facility] [address] [place], [address] BACTERIA 3+ /hpf Normal None Seen [facility] Comment on above: Order Comment: LACIE CTOR TO SPECIFY Performed By: #### L 400.0001, M100.2200 ####[facility] [address] [place], [address] RBC 10-25 SEEN Normal 0-5 [facility] Comment on above: Order Comment: LACIE CTOR TO SPECIFY Performed By: #### L 400.0001, M100.2200 ####[facility] [address] [place], [address] WBC >100 SEEN Normal 0-5 [facility] Comment on above: Order Comment: LACIE CTOR TO SPECIFY Performed By: #### L 400.0001, M100.2200 ####[facility] [address] [place], [address] Mucus Ql (Urine sed) 0 SEEN Normal [facility] Comment on above: Order Comment: LACIE CTOR TO SPECIFY Performed By: #### L 400.0001, M100.2200 ####[facility] [address] [place], [address] Urine blood detectionOrdered By: Andre Ferreira on 07-29-2024 Urine Occult Blood 250 /ul High Negative [facility] Urine clarityOrdered By: Adama Ferreira on 07-29-2024 Clarity (U) Turbid Clear [facility] Urine color determinationOrd ered By: Andre Ferreira on 07-29-2024 Color (U) Yellow Yellow [facility] Urine cultureOrdered By: Adama Ferreira on 07-29-2024 Bacteria identified Cx Nom (U) Klebsiella oxytoca Abnormal [facility] Bacteria identified Cx Nom (U) Citrobacter freundii Abnormal [facility] Bacteria identified Cx Nom (U) Staphylococcus aureus Abnormal [facility] Urine glucose detectionOrder ed By: Andre Ferreira on 07-29-2024 Glucose Ql (U) 250 mg/dl High Normal [facility] Urine leukocyte esterase det ection by dipstickOrdered By: Andre Ferreira on 07-29-2024 Leukocyte esterase Test strip Ql (U) 500 /ul High Negative [facility] Urine pHOrdered By: Andre tyson on 07-29-2024 pH (U) 6.0 [pH] 5.0 - 8.0 [facility] Urine sediment bacteria coun t by microscopy (number/high power field)Ordered By: Andre Ferreira on 07-29-2024 Bacteria LM.HPF (Urine sed) [#/Area] 3 /[HPF] None Seen [facility] Urine specific gravity measu rementOrdered By: Andre Ferreira on 07-29-2024 Specific gravity (U) [Rel density] 1.015 1.002-1.030 [facility] Urine urobilinogen measureme ntOrdered By: Andre Ferreira on 07-29-2024 Urobilinogen Ql (U) Normal mg/dl Normal [facility] Urobilinogen Ql (U)Ordered B y: Andre Ferreira on 07-29-2024 Urine Urobilinogen Normal mg/dl Normal [facility] White blood cell countOrdere d By: Andre Ferreira on 07-29-2024 Urine WBC >100 SEEN /hpf 0-5 [facility] White blood cell count >100 SEEN /hpf 0-5 [facility] aPTT Coag (PPP) [Time]Ordere d By: Andre Ferreira on 07-29-2024 aPTT Coag (Bld) [Time] 30.0 s 24.1-36.2 [facility] LDL, Directon 07-13-2024 Cholesterol in LDL [Mass/Vol] 114 mg/dL High 0-99 [facility] Comment on above: Result Comment: Perf ormed at: - [facility] [address] [id number] Director: Rayo Wilkinson PhD, Phone: [phone] Performed By: #### L 3300.4490, L100.0100, L501.91293, L500.4100, L500.4050, L506.0400, L501.9520, L501.9910 ####[facility] [address] [place], [place], [address] COMMENT TNP Normal . [facility] Comment on above: Performed By: #### L 3300.4490, L100.0100, L501.06943, L500.4100, L500.4050, L506.0400, L501.9520, L501.9910 ####[facility] [address] [place], [place], [address] Absolute lymphocyte countOrd ered By: Brian Cardona on 07-11-2024 Lymphocytes Auto (Unsp spec) [#/Vol] 2.11 10*3/uL 0.83-4.51 [facility] Absolute neutrophil countOrd ered By: Brian Cardona on 07-11-2024 Neutrophils (Bld) [#/Vol] 5.4 10*3/uL 2.0-7.7 [facility] Anion gap in Serum or Plasma Ordered By: Brian Cardona on 07-11-2024 Anion gap [Moles/Vol] 13 mmol/L 5-15 [facility] Automated lymphocyte count a s percentage of total leukocytesOrdered By: Brian Cardona on 07-11-2024 Lymphocytes/100 WBC Auto (Unsp spec) 23.9 % 19-41 [facility] BUN/creatinine ratioOrdered By: Brian Cardona on 07-11-2024 Urea nitrogen/Creatinine [Mass ratio] 15.1 mg/mg 10- [facility] Basophil percentageOrdered B y: Brian Cardona on 07-11-2024 Basophils/100 WBC (Bld) 0.8 % 0-1 [facility] Bilirubin, totalOrdered By: Brian Cardona on 07-11-2024 Bilirubin [Mass/Vol] 0.22 mg/dL 0.00-1.30 [facility] CBC W/Diff, Automatedon 06-28-2024 Absolute Lymph 2.11 X10 3/uL Normal 0.83-4.51 [facility] Comment on above: Performed By: #### L 3300.4490, L100.0100, L501.35023, L500.4100, L500.4050, L506.0400, L501.9520, L501.9910 ####[facility] [address] [place], [address] Absolute Neut 5.4 X10 3/uL Normal 2.0-7.7 [facility] Comment on above: Performed By: #### L 3300.4490, L100.0100, L501.61345, L500.4100, L500.4050, L506.0400, L501.9520, L501.9910 ####[facility] [address] [place], [address] Basophils/100 WBC (Bld) 0.8 % Normal 0-1 [facility] Comment on above: Performed By: #### L 3300.4490, L100.0100, L501.62965, L500.4100, L500.4050, L506.0400, L501.9520, L501.9910 ####[facility] [address] [place], [address] Eosinophils/100 WBC (Bld) 3.7 % Normal 0-5 [facility] Comment on above: Performed By: #### L 3300.4490, L100.0100, L501.03731, L500.4100, L500.4050, L506.0400, L501.9520, L501.9910 ####[facility] [address] [place], [address] Erythrocyte distribution width (RBC) [Ratio] 16.9 % High 11.6-14.6 [facility] Comment on above: Performed By: #### L 3300.4490, L100.0100, L501.17842, L500.4100, L500.4050, L506.0400, L501.9520, L501.9910 ####[facility] [address] [place], [address] Hematocrit (Bld) [Volume fraction] 42.1 % Normal 40-54 [facility] Comment on above: Performed By: #### L 3300.4490, L100.0100, L501.90218, L500.4100, L500.4050, L506.0400, L501.9520, L501.9910 ####[facility] [address] [place], [address] Hemoglobin (Bld) [Mass/Vol] 13.6 g/dL Normal 13.0-16.5 [facility] Comment on above: Performed By: #### L 3300.4490, L100.0100, L501.81296, L500.4100, L500.4050, L506.0400, L501.9520, L501.9910 ####[facility] [address] [place], [address] IG% 0.800 Normal 0.0-0.9 [facility] Comment on above: Result Comment: IG% - Immature Granulocytes (promyelocytes, myelocytes andmetamyelocytes) > 1% indicates that a LEFT SHIFT is Present. Performed By: #### L 3300.4490, L100.0100, L501.23244, L500.4100, L500.4050, L506.0400, L501.9520, L501.9910 ####[facility] [address] [place], [address] Lymphocytes/100 WBC (Bld) 23.9 % Normal 19-41 [facility] Comment on above: Performed By: #### L 3300.4490, L100.0100, L501.86520, L500.4100, L500.4050, L506.0400, L501.9520, L501.9910 ####[facility] [address] [place], [address] MCH (RBC) [Entitic mass] 28.9 pg Normal 27.0-32.0 [facility] Comment on above: Performed By: #### L 3300.4490, L100.0100, L501.04337, L500.4100, L500.4050, L506.0400, L501.9520, L501.9910 ####[facility] [address] [place], [address] MCHC (RBC) [Mass/Vol] 32.3 g/dL Normal 32-36 [facility] Comment on above: Performed By: #### L 3300.4490, L100.0100, L501.00657, L500.4100, L500.4050, L506.0400, L501.9520, L501.9910 ####[facility] [address] [place], [address] MCV (RBC) [Entitic vol] 89.4 fL Normal 80-94 [facility] Comment on above: Performed By: #### L 3300.4490, L100.0100, L501.16754, L500.4100, L500.4050, L506.0400, L501.9520, L501.9910 ####[facility] [address] [place], [address] Monocytes/100 WBC (Bld) 10.2 % High 0-10 [facility] Comment on above: Performed By: #### L 3300.4490, L100.0100, L501.96424, L500.4100, L500.4050, L506.0400, L501.9520, L501.9910 ####[facility] [address] [place], [address] Neutrophils/100 WBC (Bld) 60.6 % Normal 47-70 [facility] Comment on above: Performed By: #### L 3300.4490, L100.0100, L501.59987, L500.4100, L500.4050, L506.0400, L501.9520, L501.9910 ####[facility] [address] [place], [address] Nucleated RBC (Bld) [#/Vol] 0 10*3/uL Normal 0-5 [facility] Comment on above: Performed By: #### L 3300.4490, L100.0100, L501.62539, L500.4100, L500.4050, L506.0400, L501.9520, L501.9910 ####[facility] [address] [place], [address] Platelet mean volume (Bld) [Entitic vol] 9.4 fL Normal 6.2-12.0 [facility] Comment on above: Performed By: #### L 3300.4490, L100.0100, L501.95415, L500.4100, L500.4050, L506.0400, L501.9520, L501.9910 ####[facility] [address] [place], [address] Platelets (Bld) [#/Vol] 275 10*3/uL Normal 150-450 [facility] Comment on above: Performed By: #### L 3300.4490, L100.0100, L501.79200, L500.4100, L500.4050, L506.0400, L501.9520, L501.9910 ####[facility] [address] [place], [place], [phone] RBC (Bld) [#/Vol] 4.71 10*6/uL Normal 4.6-6.2 [facility] Comment on above: Performed By: #### L 3300.4490, L100.0100, L501.72696, L500.4100, L500.4050, L506.0400, L501.9520, L501.9910 ####[facility] [address] [place], [address] RDW SD 55.3 fl High 35.1-43.9 [facility] Comment on above: Performed By: #### L 3300.4490, L100.0100, L501.60682, L500.4100, L500.4050, L506.0400, L501.9520, L501.9910 ####[facility] [address] [place], [place], [phone] WBC (Bld) [#/Vol] 8.8 10*3/uL Normal 4.4-11.0 [facility] Comment on above: Performed By: #### L 3300.4490, L100.0100, L501.18542, L500.4100, L500.4050, L506.0400, L501.9520, L501.9910 ####[facility] [address] [place], [place], [phone] Calculated very low density lipoprotein (VLDL) cholesterol measurementOrdered By: Brian Cardona on 07-11-2024 Calculated very low density lipoprotein (VLDL) cholesterol measurement 64 mg/dL High 5-40 [facility] VLDL Cholesterol 64 mg/dL High 5-40 [facility] Carbon dioxide, total [Moles /volume] in Central venous bloodOrdered By: Brian Cardona on 07-11-2024 CO2 [Moles/Vol] 21.6 mmol/L 21.0-32.0 [facility] Chloride assayOrdered By: Dav Cardona on 07-11-2024 Chloride [Moles/Vol] 105 mmol/L 98-108 [facility] Cholesterol in LDL Direct as say [Mass/Vol]Ordered By: Brian Cardona on 07-11-2024 Cholesterol in LDL [Mass/Vol] 114 mg/dL High 0-99 [facility] Comment on above: Performed at: [facility] [address] [id number] Director: Rayo Wilkinson PhD, Phone: [phone] LDL Cholesterol Direct 114 mg/dL High 0-99 [facility] Comment on above: Performed at: [facility] [address] [place] [address] [id number] Director: Rayo Wilkinson PhD, Phone: [phone] Comprehensive Metabolic Prof ilon 07-11-2024 Albumin [Mass/Vol] 3.7 g/dL Normal 3.4-4.8 [facility] Comment on above: Performed By: #### L 3300.4490, L100.0100, L501.88529, L500.4100, L500.4050, L506.0400, L501.9520, L501.9910 ####[facility] [address] [place], [place], [phone] Albumin/Globulin [Mass ratio] 1.1 {ratio} Normal 0.9-2.4 [facility] Comment on above: Performed By: #### L 3300.4490, L100.0100, L501.41632, L500.4100, L500.4050, L506.0400, L501.9520, L501.9910 ####[facility] [address] [place], [address] ALK PHOS 114 U/L Normal 40-129 [facility] Comment on above: Performed By: #### L 3300.4490, L100.0100, L501.44490, L500.4100, L500.4050, L506.0400, L501.9520, L501.9910 ####[facility] [address] [place], [address] ALT [Catalytic activity/Vol] 36 U/L Normal <=46 [facility] Comment on above: Performed By: #### L 3300.4490, L100.0100, L501.26209, L500.4100, L500.4050, L506.0400, L501.9520, L501.9910 ####[facility] [address] [place], [address] AST [Catalytic activity/Vol] 32 U/L Normal <=37 [facility] Comment on above: Performed By: #### L 3300.4490, L100.0100, L501.97309, L500.4100, L500.4050, L506.0400, L501.9520, L501.9910 ####[facility] [address] [place], [address] Bilirubin [Mass/Vol] 0.22 mg/dL Normal 0.00-1.30 [facility] Comment on above: Performed By: #### L 3300.4490, L100.0100, L501.94229, L500.4100, L500.4050, L506.0400, L501.9520, L501.9910 ####[facility] [address] [place], [address] BUN/CRE 15.1 RATIO Normal 10-20 [facility] Comment on above: Performed By: #### L 3300.4490, L100.0100, L501.09943, L500.4100, L500.4050, L506.0400, L501.9520, L501.9910 ####[facility] [address] [place], [address] Calcium [Mass/Vol] 9.2 mg/dL Normal 7.6-11.0 [facility] Comment on above: Performed By: #### L 3300.4490, L100.0100, L501.72523, L500.4100, L500.4050, L506.0400, L501.9520, L501.9910 ####[facility] [address] [place], [address] Chloride [Moles/Vol] 105 mmol/L Normal 98-108 [facility] Comment on above: Performed By: #### L 3300.4490, L100.0100, L501.40541, L500.4100, L500.4050, L506.0400, L501.9520, L501.9910 ####[facility] [address] [place], [address] CO2 [Moles/Vol] 21.6 mmol/L Normal 21.0-32.0 [facility] Comment on above: Performed By: #### L 3300.4490, L100.0100, L501.63396, L500.4100, L500.4050, L506.0400, L501.9520, L501.9910 ####[facility] [address] [place], [address] Creatinine [Mass/Vol] 0.64 mg/dL Low 0.70-1.20 [facility] Comment on above: Performed By: #### L 3300.4490, L100.0100, L501.14993, L500.4100, L500.4050, L506.0400, L501.9520, L501.9910 ####[facility] [address] [place], [address] GAP 13 Normal 5-15 [facility] Comment on above: Performed By: #### L 3300.4490, L100.0100, L501.36258, L500.4100, L500.4050, L506.0400, L501.9520, L501.9910 ####[facility] [address] [place], [address] GFR/1.73 sq M.predicted among non-blacks MDRD (S/P/Bld) [Vol rate/Area] 104 mL/min/{1.73_m2} Normal >60 [facility] Comment on above: Result Comment: mL/m in/1.73m2 CKD-EPI Creatinine Equation (2020) Performed By: #### L 3300.4490, L100.0100, L501.86171, L500.4100, L500.4050, L506.0400, L501.9520, L501.9910 ####[facility] [address] [place], [address] Globulin (S) [Mass/Vol] 3.5 g/dL Normal 2.2-4.2 [facility] Comment on above: Performed By: #### L 3300.4490, L100.0100, L501.88780, L500.4100, L500.4050, L506.0400, L501.9520, L501.9910 ####[facility] [address] [place], [address] Glucose [Mass/Vol] 91 mg/dL Normal 70-99 [facility] Comment on above: Performed By: #### L 3300.4490, L100.0100, L501.12737, L500.4100, L500.4050, L506.0400, L501.9520, L501.9910 ####[facility] [address] [place], [address] Potassium [Moles/Vol] 4.2 mmol/L Normal 3.3-5.1 [facility] Comment on above: Performed By: #### L 3300.4490, L100.0100, L501.34469, L500.4100, L500.4050, L506.0400, L501.9520, L501.9910 ####[facility] [address] [place], [address] Sodium [Moles/Vol] 139 mmol/L Normal 133-145 [facility] Comment on above: Performed By: #### L 3300.4490, L100.0100, L501.00977, L500.4100, L500.4050, L506.0400, L501.9520, L501.9910 ####[facility] [address] [place], [place], [phone] T PROT 7.2 g/dL Normal 5.9-8.4 [facility] Comment on above: Performed By: #### L 3300.4490, L100.0100, L501.30953, L500.4100, L500.4050, L506.0400, L501.9520, L501.9910 ####[facility] [address] [place], [address] Urea nitrogen [Mass/Vol] 10 mg/dL Normal 4-19 [facility] Comment on above: Performed By: #### L 3300.4490, L100.0100, L501.09041, L500.4100, L500.4050, L506.0400, L501.9520, L501.9910 ####[facility] [address] [place], [address] Eosinophil percentageOrdered By: Brian Cardona on 07-11-2024 Eosinophils/100 WBC (Bld) 3.7 % 0-5 [facility] Erythrocyte distribution wid th (RBC) [Ratio]Ordered By: Brian Cardona on 07-11-2024 Erythrocyte distribution width (RBC) [Entitic vol] 55.3 fL High 35.1-43.9 [facility] Erythrocyte distribution wid th ratioOrdered By: Brian Cardona on 07-11-2024 Erythrocyte distribution width (RBC) [Ratio] 16.9 % High 11.6-14.6 [facility] Erythrocyte distribution wid th standard deviationOrdered By: Brian Cardona on 07-11-2024 Erythrocyte distribution width (RBC) [Ratio] 55.3 fl High 35.1-43.9 [facility] Free T3on 07-11-2024 Free T3 [Mass/Vol] 2.0 pg/mL Low 2.18-3.98 [facility] Comment on above: Performed By: #### L 3300.4490, L100.0100, L501.85441, L500.4100, L500.4050, L506.0400, L501.9520, L501.9910 ####[facility] [address] [place], [address] Free B2Zxocfbp By: Brian bar on 07-11-2024 Free T3 [Mass/Vol] 2.0 pg/mL Low 2.18-3.98 [facility] Free Triiodothyronine (T3) pg/dL 2.0 pg/mL Low 2.18-3.98 [facility] GFR/1.73 sq M.predicted elias g non-blacks MDRD (S/P/Bld) [Vol rate/Area]Ordered By: Brian Cardona on 07-11-2024 Estimated GFR (MDRD) Non-Af Amer 104 >60 [facility] Comment on above: mL/min/1.73m2 CKD-EP I Creatinine Equation (2020) Glomerular filtration rate ( GFR) estimation/1.73 sq m using serum, plasma, or whole bOrdered By: Brian Cardona on 07-11-2024 GFR/1.73 sq M.predicted among non-blacks MDRD (S/P/Bld) [Vol rate/Area] 104 mL/min/{1.73_m2} >60 [facility] Comment on above: mL/min/1.73m2 CKD-EP I Creatinine Equation (2020) Hematocrit Auto (Bld) [Volum e fraction]Ordered By: Brian Cardona on 07-11-2024 Hematocrit (Bld) [Volume fraction] 42.1 % 40-54 [facility] Hemoglobin measurementOrdere d By: Brian Cardona on 07-11-2024 Hemoglobin (Bld) [Mass/Vol] 13.6 g/dL 13.0-16.5 [facility] Immature granulocytes/100 WB C Auto (Bld)Ordered By: Brian Cardona on 07-11-2024 Immature granulocytes/100 WBC (Bld) 0.800 % 0.0-0.9 [facility] Comment on above: IG% - Immature Granu locytes (promyelocytes, myelocytes and metamyelocytes) > 1% indicates that a LEFT SHIFT is Present. LDL calc ser/plasOrdered By: Brian Cardona on 07-11-2024 Cholesterol in LDL [Mass/Vol] 88 mg/dL [facility] Comment on above: Agupqobjlh=601-940 m g/dL & Higher Cjjd=809 mg/dL or greater LDL Cholesterol, Calculated 88 mg/dL [facility] Comment on above: Qetdpmitat=424-703 m g/dL & Higher Whse=058 mg/dL or greater Laboratory - Chemistry and C hemistry - challengeOrdered By: Brian Cardona on 07-11-2024 AST [Catalytic activity/Vol] 32 U/L <38 [facility] Laboratory - Miscellaneous t estsOrdered By: Brian Cardona on 07-11-2024 Service comment (Unsp spec) [Interp] TNP [facility] Comment on above: Test not performed Lipid Profileon 07-11-2024 CHOL:HDL 5.07 Normal [facility] Comment on above: Performed By: #### L 3300.4490, L100.0100, L501.46935, L500.4100, L500.4050, L506.0400, L501.9520, L501.9910 ####[facility] [address] [place], [address] Cholesterol [Mass/Vol] 189 mg/dL Normal <=200 [facility] Comment on above: Result Comment: Chol esterol level, Desirable <200 mg/dLBorderline high cholesterol 200-239 mg/dLHigh cholesterol >=240 mg/dLRecommendations of the NCEP Adult Treatment Panel for thefollowing risk-cutoff thresholds for the [place] American[place]. Performed By: #### L 3300.4490, L100.0100, L501.89047, L500.4100, L500.4050, L506.0400, L501.9520, L501.9910 ####[facility] [address] [place], [address] Cholesterol in HDL [Mass/Vol] 37 mg/dL Low [facility] Comment on above: Result Comment: Lilly onal Cholesterol Education Program (NCEP) guidelines:<40 mg/dL: Low HDL-cholesterol (major risk factor for CHD)>= 60 mg/dL: High HDL-cholesterol (negative risk factor forCHD)HDL-cholesterol is affected by a number of factors, e.g.smoking, exercise, hormones, sex and age. Performed By: #### L 3300.4490, L100.0100, L501.71875, L500.4100, L500.4050, L506.0400, L501.9520, L501.9910 ####[facility] [address] [place], [place], [phone] Cholesterol in LDL [Mass/Vol] 88 mg/dL Normal [facility] Comment on above: Result Comment: Bord daqllx=971-032 mg/dL Higher Nscp=982 mg/dL or greater Performed By: #### L 3300.4490, L100.0100, L501.46329, L500.4100, L500.4050, L506.0400, L501.9520, L501.9910 ####[facility] [address] [place], [address] Cholesterol in VLDL [Mass/Vol] 64 mg/dL High 5-40 [facility] Comment on above: Performed By: #### L 3300.4490, L100.0100, L501.34843, L500.4100, L500.4050, L506.0400, L501.9520, L501.9910 ####[facility] [address] [place], [place], [address] Triglyceride [Mass/Vol] 318 mg/dL High [facility] Comment on above: Result Comment: The drugs N-Acetylcysteine and Metamizole may falselydepress this assay.Normal range: <150 mg/dLBorderline High: 150-199 mg/dLHigh: 200-499 mg/dLVery High: >500 mg/dL Performed By: #### L 3300.4490, L100.0100, L501.63360, L500.4100, L500.4050, L506.0400, L501.9520, L501.9910 ####[facility] [address] [place], [place], [address] Lymphocytes Auto (Unsp spec) [#/Vol]Ordered By: Brian Cardona on 07-11-2024 Lymphocytes (Bld) [#/Vol] 2.11 10*3/uL 0.83-4.51 [facility] Lymphocytes/100 WBC Auto (Un sp spec)Ordered By: Brian Cardona on 07-11-2024 Lymphocytes/100 WBC (Bld) 23.9 % 19-41 [facility] MCV (mean corpuscular volume ) determinationOrdered By: Brian Cardona on 07-11-2024 MCV (RBC) [Entitic vol] 89.4 fL 80-94 [facility] Mean corpuscular hemoglobin (MCH) determinationOrdered By: Brian Cardona on 07-11-2024 MCH (RBC) [Entitic mass] 28.9 pg 27.0-32.0 [facility] Mean corpuscular hemoglobin concentration (MCHC) determinationOrdered By: Brian Cardona on 07-11-2024 MCHC (RBC) [Mass/Vol] 32.3 g/dL 32-36 [facility] Mean platelet volume determi nationOrdered By: Brian Cardona on 07-11-2024 Platelet mean volume (Bld) [Entitic vol] 9.4 fL 6.2-12.0 [facility] Monocyte percentageOrdered B y: Brian Cardona on 07-11-2024 Monocytes/100 WBC (Bld) 10.2 % High 0-10 [facility] Neutrophil percentageOrdered By: Brian Cardona on 07-11-2024 Neutrophils/100 WBC (Bld) 60.6 % 47-70 [facility] No Panel InformationOrdered By: Brian Cardona on 07-11-2024 32 U/L <38 [facility] Nucleated red blood cell per centageOrdered By: Brian Cardona on 07-11-2024 Nucleated RBC/100 WBC (Bld) [Ratio] 0 % 0-5 [facility] PSA, total screeningOrdered By: Brian Cardona on 07-11-2024 Prostate Specific Antigen Screen 3.78 ng/mL 0.02-4.00 [facility] Comment on above: This test was [...] 07-11-2024 PSA,TOT SCREEN 3.78 ng/mL Normal 0.02-4.00 [facility] Comment on above: Result Comment: This test was performed using the [employer] tPSAmethod. Measured values of a patient??sample can varydepending on the testing procedure used. PSA valuesdetermined on patient samples by different testingprocedures cannot be used interchangeably. If there is achange in PSA assays while monitoring therapy, sequentialtesting should be performed to confirm baseline values. Performed By: #### L 3300.4490, L100.0100, L501.97875, L500.4100, L500.4050, L506.0400, L501.9520, L501.9910 ####[facility] [address] [place], [address] Platelet countOrdered By: Dav Cardona on 07-11-2024 Platelets (Bld) [#/Vol] 275 10*3/uL 150-450 [facility] Potassium (Unsp spec) [Mass/ Vol]Ordered By: Brian Cardona on 07-11-2024 Potassium [Moles/Vol] 4.2 mmol/L 3.3-5.1 [facility] Potassium measurement (mass/ volume)Ordered By: Brian Cardona on 07-11-2024 Potassium (Unsp spec) [Mass/Vol] 4.2 mmol/L 3.3-5.1 [facility] RBC Auto (Bld) [#/Vol]Ordere d By: Brian Cardona on 07-11-2024 RBC (Bld) [#/Vol] 4.71 10*6/uL 4.6-6.2 [facility] Screening total cholesterol/ high density lipoprotein (HDL) cholesterol ratioOrdered By: Brian Cardona on 07-11-2024 Cholesterol.total/Radha sterol in HDL [Mass ratio] 5.07 {ratio} [facility] Serum creatinine measurement (mass/volume)Ordered By: Brian Cardona on 07-11-2024 Creatinine [Mass/Vol] 0.64 mg/dL Low 0.70-1.20 [facility] Serum globulin measurementOr dered By: Brian Cardona on 07-11-2024 Globulin (S) [Mass/Vol] 3.5 g/dL 2.2-4.2 [facility] Serum glucose measurement (m ass/volume)Ordered By: Brian Cardona on 07-11-2024 Glucose [Mass/Vol] 91 mg/dL 70-99 [facility] Serum or plasma alanine orozco otransferase (ALT) measurementOrdered By: Brian Cardona on 07-11-2024 ALT [Catalytic activity/Vol] 36 U/L <47 [facility] Serum or plasma albumin marlyn urement (mass/volume)Ordered By: Brian Cardona on 07-11-2024 Albumin [Mass/Vol] 3.7 g/dL 3.4-4.8 [facility] Serum or plasma albumin/glob ulin mass ratioOrdered By: Brian Cardona on 07-11-2024 Albumin/Globulin [Mass ratio] 1.1 {ratio} 0.9-2.4 [facility] Serum or plasma alkaline marisol sphatase measurementOrdered By: Brian Cardona on 07-11-2024 ALP [Catalytic activity/Vol] 114 U/L 40-129 [facility] Serum or plasma calcium marlyn urement (mass/volume)Ordered By: Brian Cardona on 07-11-2024 Calcium [Mass/Vol] 9.2 mg/dL 7.6-11.0 [facility] Serum or plasma cholesterol in HDL measurement (mass/volume)Ordered By: Brian Cardona on 07-11-2024 Cholesterol in HDL [Mass/Vol] 37 mg/dL Low >40 [facility] Comment on above: National Cholesterol Education Program (NCEP) guidelines:<40 mg/dL: Low HDL-cholesterol (major risk factor for CHD)>= 60 mg/dL: High HDL-cholesterol (negative risk factor for CHD)HDL-cholesterol is affected by a number of factors, e.g. smoking, exercise, hormones, sex and age. Serum or plasma cholesterol measurement (mass/volume)Ordered By: Brian Cardona on 07-11-2024 Cholesterol [Mass/Vol] 189 mg/dL <201 [facility] Comment on above: Cholesterol level, D esirable <200 mg/dLBorderline high cholesterol 200-239 mg/dLHigh cholesterol >=240 mg/dLRecommendations of the NCEP Adult Treatment Panel for the following risk-cutoff thresholds for the [place] population. Serum or plasma urea nitroge n measurement (mass/volume)Ordered By: Brian Cardona on 07-11-2024 Urea nitrogen [Mass/Vol] 10 mg/dL 4-19 [facility] Service comment (Unsp spec) [Interp]Ordered By: Brian Cardona on 07-11-2024 LDL Cholesterol Direct Comment TNP [facility] Comment on above: Test not performed Sodium levelOrdered By: Amol Cardona on 07-11-2024 Sodium [Moles/Vol] 139 mmol/L 133-145 [facility] T4 Free Directon 07-11-2024 T4 FREE DIRECT 1.00 ng/dL Normal 0.76-1.46 [facility] Comment on above: Performed By: #### L 3300.4490, L100.0100, L501.19249, L500.4100, L500.4050, L506.0400, L501.9520, L501.9910 ####[facility] [id number] [place], [place], [id number] T4 freeOrdered By: Brian bar on 07-11-2024 Free T4 [Mass/Vol] 1.00 ng/dL 0.76-1.46 [facility] TSH DL <= 0.005 mIU/L QnOrde red By: Brian Cardona on 07-11-2024 Thyroid Stimulating Hormone (TSH) 23.100 uIU/mL High 0.300-4.200 [facility] TSH Qn 23.100 uIU/mL High 0.300-4.200 [facility] Thyroid Stim Hormone (TSH)on 07-11-2024 TSH 23.100 uIU/mL High 0.300-4.200 [facility] [facility] Comment on above: Performed By: #### L 3300.4490, L100.0100, L501.94366, L500.4100, L500.4050, L506.0400, L501.9520, L501.9910 ####[facility] [address] [place], [place], [address] Total proteinOrdered By: Kaleb Cardona on 07-11-2024 Protein [Mass/Vol] 7.2 g/dL 5.9-8.4 [facility] Triglycerides measurementOrd ered By: Brian Cardona on 07-11-2024 Triglyceride [Mass/Vol] 318 mg/dL High <199 [facility] Comment on above: The drugs N-Acetylcy steine and Metamizole may falsely depress this assay. Normal range: <150 mg/dLBorderline High: 150-199 mg/dLHigh: 200-499 mg/dLVery High: >500 mg/dL White blood cell (WBC) count Ordered By: Brian Cardona on 07-11-2024 WBC (Bld) [#/Vol] 8.8 10*3/uL 4.4-11.0 [facility] Basic Metabolic Profile (BMP )on 06-17-2024 BUN Normal 4-19 [facility] Comment on above: Result Comment: Canc elled via OM: Order cancelled - Patient discharged Performed By: #### L 500.2500, L100.0100 ####[facility] [address] [place], [address] BUN/CRE Normal 10-20 [facility] Comment on above: Result Comment: Canc elled via OM: Order cancelled - Patient discharged Performed By: #### L 500.2500, L100.0100 ####[facility] [address] [place], [address] Calcium Normal 7.6-11.0 [facility] Comment on above: Result Comment: Canc elled via OM: Order cancelled - Patient discharged Performed By: #### L 500.2500, L100.0100 ####[facility] [address] [place], [address] CL Normal 98-108 [facility] Comment on above: Result Comment: Canc elled via OM: Order cancelled - Patient discharged Performed By: #### L 500.2500, L100.0100 ####[facility] [address] [place], [address] CO2 Normal 21.0-32.0 [facility] Comment on above: Result Comment: Canc elled via OM: Order cancelled - Patient discharged Performed By: #### L 500.2500, L100.0100 ####[facility] [address] [place], [address] CREAT,SERUM Normal 0.70-1.20 [facility] Comment on above: Result Comment: Canc elled via OM: Order cancelled - Patient discharged Performed By: #### L 500.2500, L100.0100 ####[facility] [address] [place], [address] eGFR Normal >60 [facility] Comment on above: Result Comment: Canc elled via OM: Order cancelled - Patient discharged Performed By: #### L 500.2500, L100.0100 ####[facility] [address] [place], [address] GAP Normal 5-15 [facility] Comment on above: Result Comment: Canc elled via OM: Order cancelled - Patient discharged Performed By: #### L 500.2500, L100.0100 ####[facility] [address] [place], [address] GLU Normal 70-99 [facility] Comment on above: Result Comment: Canc elled via OM: Order cancelled - Patient discharged Performed By: #### L 500.2500, L100.0100 ####[facility] [address] [place], [address] Potassium Normal 3.3-5.1 [facility] Comment on above: Result Comment: Canc elled via OM: Order cancelled - Patient discharged Performed By: #### L 500.2500, L100.0100 ####[facility] [address] [place], [address] Basic Metabolic Profile (BMP) Normal 133-145 [facility] Comment on above: Result Comment: Canc elled via OM: Order cancelled - Patient discharged Performed By: #### L 500.2500, L100.0100 ####[facility] [address] [place], [address] CBC W/Diff, Automatedon 03-2 Absolute Neut Normal 2.0-7.7 [facility] Comment on above: Result Comment: Canc elled via OM: Order cancelled - Patient discharged Performed By: #### L 500.2500, L100.0100 ####[facility] [address] [place], [address] HCT Normal 40-54 [facility] Comment on above: Result Comment: Canc elled via OM: Order cancelled - Patient discharged Performed By: #### L 500.2500, L100.0100 ####[facility] [address] [place], [address] HGB Normal 13.0-16.5 [facility] Comment on above: Result Comment: Canc elled via OM: Order cancelled - Patient discharged Performed By: #### L 500.2500, L100.0100 ####[facility] [address] [place], [address] MCH Normal 27.0-32.0 [facility] Comment on above: Result Comment: Canc elled via OM: Order cancelled - Patient discharged Performed By: #### L 500.2500, L100.0100 ####[facility] [address] [place], [address] MCHC Normal 32-36 [facility] Comment on above: Result Comment: Canc elled via OM: Order cancelled - Patient discharged Performed By: #### L 500.2500, L100.0100 ####[facility] [address] [place], [address] MCV Normal 80-94 [facility] Comment on above: Result Comment: Canc elled via OM: Order cancelled - Patient discharged Performed By: #### L 500.2500, L100.0100 ####[facility] [address] [place], [address] NEUT% Normal 47-70 [facility] Comment on above: Result Comment: Canc elled via OM: Order cancelled - Patient discharged Performed By: #### L 500.2500, L100.0100 ####[facility] [address] [place], [address] PLT Normal 150-450 [facility] Comment on above: Result Comment: Canc elled via OM: Order cancelled - Patient discharged Performed By: #### L 500.2500, L100.0100 ####[facility] [address] [place], [address] RBC Normal 4.6-6.2 [facility] Comment on above: Result Comment: Canc elled via OM: Order cancelled - Patient discharged Performed By: #### L 500.2500, L100.0100 ####[facility] [address] [place], [address] RDW CV Normal 11.6-14.6 [facility] Comment on above: Result Comment: Canc elled via OM: Order cancelled - Patient discharged Performed By: #### L 500.2500, L100.0100 ####[facility] [address] [place], [address] RDW SD Normal 35.1-43.9 [facility] Comment on above: Result Comment: Canc elled via OM: Order cancelled - Patient discharged Performed By: #### L 500.2500, L100.0100 ####[facility] [address] [place], [address] WBC Normal 4.4-11.0 [facility] Comment on above: Result Comment: Canc elled via OM: Order cancelled - Patient discharged Performed By: #### L 500.2500, L100.0100 ####[facility] [address] [place], [address] Basic Metabolic Profile (BMP )on 06-16-2024 BUN Normal 4- [facility] Comment on above: Result Comment: Canc elled via OM: Order cancelled - Patient discharged Performed By: #### L 100.0100, L500.2500 ####[facility] [address] [place], [address] BUN/CRE Normal - [facility] Comment on above: Result Comment: Canc elled via OM: Order cancelled - Patient discharged Performed By: #### L 100.0100, L500.2500 ####[facility] [address] [place], [address] Calcium Normal 7.6-11.0 [facility] Comment on above: Result Comment: Canc elled via OM: Order cancelled - Patient discharged Performed By: #### L 100.0100, L500.2500 ####[facility] [address] [place], [address] CL Normal 98-108 [facility] Comment on above: Result Comment: Canc elled via OM: Order cancelled - Patient discharged Performed By: #### L 100.0100, L500.2500 ####[facility] [address] [place], [address] CO2 Normal 21.0-32.0 [facility] Comment on above: Result Comment: Canc elled via OM: Order cancelled - Patient discharged Performed By: #### L 100.0100, L500.2500 ####[facility] [address] [place], [address] CREAT,SERUM Normal 0.70-1.20 [facility] Comment on above: Result Comment: Canc elled via OM: Order cancelled - Patient discharged Performed By: #### L 100.0100, L500.2500 ####[facility] [address] [place], [address] eGFR Normal >60 [facility] Comment on above: Result Comment: Canc elled via OM: Order cancelled - Patient discharged Performed By: #### L 100.0100, L500.2500 ####[facility] [address] [place], [address] GAP Normal 5-15 [facility] Comment on above: Result Comment: Canc elled via OM: Order cancelled - Patient discharged Performed By: #### L 100.0100, L500.2500 ####[facility] [address] [place], [address] GLU Normal 70-99 [facility] Comment on above: Result Comment: Canc elled via OM: Order cancelled - Patient discharged Performed By: #### L 100.0100, L500.2500 ####[facility] [address] [place], [address] Potassium Normal 3.3-5.1 [facility] Comment on above: Result Comment: Canc elled via OM: Order cancelled - Patient discharged Performed By: #### L 100.0100, L500.2500 ####[facility] [address] [place], [address] Basic Metabolic Profile (BMP) Normal 133-145 [facility] Comment on above: Result Comment: Canc elled via OM: Order cancelled - Patient discharged Performed By: #### L 100.0100, L500.2500 ####[facility] [address] [place], [address] CBC W/Diff, Automatedon 03-2 0-2024 Absolute Neut Normal 2.0-7.7 [facility] Comment on above: Result Comment: Canc elled via OM: Order cancelled - Patient discharged Performed By: #### L 100.0100, L500.2500 ####[facility] [address] [place], [address] HCT Normal 40-54 [facility] Comment on above: Result Comment: Canc elled via OM: Order cancelled - Patient discharged Performed By: #### L 100.0100, L500.2500 ####[facility] [address] [place], [address] HGB Normal 13.0-16.5 [facility] Comment on above: Result Comment: Canc elled via OM: Order cancelled - Patient discharged Performed By: #### L 100.0100, L500.2500 ####[facility] [address] [place], [address] MCH Normal 27.0-32.0 [facility] Comment on above: Result Comment: Canc elled via OM: Order cancelled - Patient discharged Performed By: #### L 100.0100, L500.2500 ####[facility] [address] [place], [address] MCHC Normal 32-36 [facility] Comment on above: Result Comment: Canc elled via OM: Order cancelled - Patient discharged Performed By: #### L 100.0100, L500.2500 ####[facility] [address] [place], [address] MCV Normal 80-94 [facility] Comment on above: Result Comment: Canc elled via OM: Order cancelled - Patient discharged Performed By: #### L 100.0100, L500.2500 ####[facility] [address] [place], [address] NEUT% Normal 47-70 [facility] Comment on above: Result Comment: Canc elled via OM: Order cancelled - Patient discharged Performed By: #### L 100.0100, L500.2500 ####[facility] [address] [place], [address] PLT Normal 150-450 [facility] Comment on above: Result Comment: Canc elled via OM: Order cancelled - Patient discharged Performed By: #### L 100.0100, L500.2500 ####[facility] [address] [place], [address] RBC Normal 4.6-6.2 [facility] Comment on above: Result Comment: Canc elled via OM: Order cancelled - Patient discharged Performed By: #### L 100.0100, L500.2500 ####[facility] [address] [place], [address] RDW CV Normal 11.6-14.6 [facility] Comment on above: Result Comment: Canc elled via OM: Order cancelled - Patient discharged Performed By: #### L 100.0100, L500.2500 ####[facility] [address] [place], [address] RDW SD Normal 35.1-43.9 [facility] Comment on above: Result Comment: Canc elled via OM: Order cancelled - Patient discharged Performed By: #### L 100.0100, L500.2500 ####[facility] [address] [place], [address] WBC Normal 4.4-11.0 [facility] Comment on above: Result Comment: Canc elled via OM: Order cancelled - Patient discharged Performed By: #### L 100.0100, L500.2500 ####[facility] [address] [place], [address] Basic Metabolic Profile (BMP )on 06-15-2024 BUN Normal 4-19 [facility] Comment on above: Result Comment: Canc elled via OM: Order cancelled - Patient discharged Performed By: #### L 100.0100, L500.2500 ####[facility] [address] [place], [address] BUN/CRE Normal 10-20 [facility] Comment on above: Result Comment: Canc elled via OM: Order cancelled - Patient discharged Performed By: #### L 100.0100, L500.2500 ####[facility] [address] [place], [address] Calcium Normal 7.6-11.0 [facility] Comment on above: Result Comment: Canc elled via OM: Order cancelled - Patient discharged Performed By: #### L 100.0100, L500.2500 ####[facility] [address] [place], [address] CL Normal 98-108 [facility] Comment on above: Result Comment: Canc elled via OM: Order cancelled - Patient discharged Performed By: #### L 100.0100, L500.2500 ####[facility] [address] [place], [address] CO2 Normal 21.0-32.0 [facility] Comment on above: Result Comment: Canc elled via OM: Order cancelled - Patient discharged Performed By: #### L 100.0100, L500.2500 ####[facility] [address] [place], [address] CREAT,SERUM Normal 0.70-1.20 [facility] Comment on above: Result Comment: Canc elled via OM: Order cancelled - Patient discharged Performed By: #### L 100.0100, L500.2500 ####[facility] [address] [place], [address] eGFR Normal >60 [facility] Comment on above: Result Comment: Canc elled via OM: Order cancelled - Patient discharged Performed By: #### L 100.0100, L500.2500 ####[facility] [address] [place], [address] GAP Normal 5-15 [facility] Comment on above: Result Comment: Canc elled via OM: Order cancelled - Patient discharged Performed By: #### L 100.0100, L500.2500 ####[facility] [address] [place], [address] GLU Normal 70-99 [facility] Comment on above: Result Comment: Canc elled via OM: Order cancelled - Patient discharged Performed By: #### L 100.0100, L500.2500 ####[facility] [address] [place], [address] Potassium Normal 3.3-5.1 [facility] Comment on above: Result Comment: Canc elled via OM: Order cancelled - Patient discharged Performed By: #### L 100.0100, L500.2500 ####[facility] [address] [place], [address] Basic Metabolic Profile (BMP) Normal 133-145 [facility] Comment on above: Result Comment: Canc elled via OM: Order cancelled - Patient discharged Performed By: #### L 100.0100, L500.2500 ####[facility] [address] [place], [address] CBC W/Diff, Automatedon 03-1 Absolute Neut Normal 2.0-7.7 [facility] Comment on above: Result Comment: Canc elled via OM: Order cancelled - Patient discharged Performed By: #### L 100.0100, L500.2500 ####[facility] [address] [place], [address] HCT Normal 40-54 [facility] Comment on above: Result Comment: Canc elled via OM: Order cancelled - Patient discharged Performed By: #### L 100.0100, L500.2500 ####[facility] [address] [place], [address] HGB Normal 13.0-16.5 [facility] Comment on above: Result Comment: Canc elled via OM: Order cancelled - Patient discharged Performed By: #### L 100.0100, L500.2500 ####[facility] [address] [place], [address] MCH Normal 27.0-32.0 [facility] Comment on above: Result Comment: Canc elled via OM: Order cancelled - Patient discharged Performed By: #### L 100.0100, L500.2500 ####[facility] [address] [place], [address] MCHC Normal 32-36 [facility] Comment on above: Result Comment: Canc elled via OM: Order cancelled - Patient discharged Performed By: #### L 100.0100, L500.2500 ####[facility] [address] [place], [address] MCV Normal 80-94 [facility] Comment on above: Result Comment: Canc elled via OM: Order cancelled - Patient discharged Performed By: #### L 100.0100, L500.2500 ####[facility] [address] [place], [address] NEUT% Normal 47-70 [facility] Comment on above: Result Comment: Canc elled via OM: Order cancelled - Patient discharged Performed By: #### L 100.0100, L500.2500 ####[facility] [address] [place], [address] PLT Normal 150-450 [facility] Comment on above: Result Comment: Canc elled via OM: Order cancelled - Patient discharged Performed By: #### L 100.0100, L500.2500 ####[facility] [address] [place], [address] RBC Normal 4.6-6.2 [facility] Comment on above: Result Comment: Canc elled via OM: Order cancelled - Patient discharged Performed By: #### L 100.0100, L500.2500 ####[facility] [address] [place], [address] RDW CV Normal 11.6-14.6 [facility] Comment on above: Result Comment: Canc elled via OM: Order cancelled - Patient discharged Performed By: #### L 100.0100, L500.2500 ####[facility] [address] [place], [address] RDW SD Normal 35.1-43.9 [facility] Comment on above: Result Comment: Canc elled via OM: Order cancelled - Patient discharged Performed By: #### L 100.0100, L500.2500 ####[facility] [address] [place], [address] WBC Normal 4.4-11.0 [facility] Comment on above: Result Comment: Canc elled via OM: Order cancelled - Patient discharged Performed By: #### L 100.0100, L500.2500 ####[facility] [address] [place], [address] Basic Metabolic Profile (BMP )on 06-14-2024 BUN Normal 4-19 [facility] Comment on above: Result Comment: Canc elled via OM: Order cancelled - Patient discharged Performed By: #### L 500.2500, L100.0100 ####[facility] [address] [place], [address] BUN/CRE Normal 10-20 [facility] Comment on above: Result Comment: Canc elled via OM: Order cancelled - Patient discharged Performed By: #### L 500.2500, L100.0100 ####[facility] [address] [place], [address] Calcium Normal 7.6-11.0 [facility] Comment on above: Result Comment: Canc elled via OM: Order cancelled - Patient discharged Performed By: #### L 500.2500, L100.0100 ####[facility] [address] [place], [address] CL Normal 98-108 [facility] Comment on above: Result Comment: Canc elled via OM: Order cancelled - Patient discharged Performed By: #### L 500.2500, L100.0100 ####[facility] [address] [place], [address] CO2 Normal 21.0-32.0 [facility] Comment on above: Result Comment: Canc elled via OM: Order cancelled - Patient discharged Performed By: #### L 500.2500, L100.0100 ####[facility] [address] [place], [address] CREAT,SERUM Normal 0.70-1.20 [facility] Comment on above: Result Comment: Canc elled via OM: Order cancelled - Patient discharged Performed By: #### L 500.2500, L100.0100 ####[facility] [address] [place], [address] eGFR Normal >60 [facility] Comment on above: Result Comment: Canc elled via OM: Order cancelled - Patient discharged Performed By: #### L 500.2500, L100.0100 ####[facility] [address] [place], [address] GAP Normal 5-15 [facility] Comment on above: Result Comment: Canc elled via OM: Order cancelled - Patient discharged Performed By: #### L 500.2500, L100.0100 ####[facility] [address] [place], [address] GLU Normal 70-99 [facility] Comment on above: Result Comment: Canc elled via OM: Order cancelled - Patient discharged Performed By: #### L 500.2500, L100.0100 ####[facility] [address] [place], [address] Potassium Normal 3.3-5.1 [facility] Comment on above: Result Comment: Canc elled via OM: Order cancelled - Patient discharged Performed By: #### L 500.2500, L100.0100 ####[facility] [address] [place], [address] Basic Metabolic Profile (BMP) Normal 133-145 [facility] Comment on above: Result Comment: Canc elled via OM: Order cancelled - Patient discharged Performed By: #### L 500.2500, L100.0100 ####[facility] [address] [place], [address] CBC W/Diff, Automatedon - Absolute Neut Normal 2.0-7.7 [facility] Comment on above: Result Comment: Canc elled via OM: Order cancelled - Patient discharged Performed By: #### L 500.2500, L100.0100 ####[facility] [address] [place], [address] HCT Normal 40-54 [facility] Comment on above: Result Comment: Canc elled via OM: Order cancelled - Patient discharged Performed By: #### L 500.2500, L100.0100 ####[facility] [address] [place], [address] HGB Normal 13.0-16.5 [facility] Comment on above: Result Comment: Canc elled via OM: Order cancelled - Patient discharged Performed By: #### L 500.2500, L100.0100 ####[facility] [address] [place], [address] MCH Normal 27.0-32.0 [facility] Comment on above: Result Comment: Canc elled via OM: Order cancelled - Patient discharged Performed By: #### L 500.2500, L100.0100 ####[facility] [address] [place], [address] MCHC Normal 32-36 [facility] Comment on above: Result Comment: Canc elled via OM: Order cancelled - Patient discharged Performed By: #### L 500.2500, L100.0100 ####[facility] [address] [place], [address] MCV Normal 80-94 [facility] Comment on above: Result Comment: Canc elled via OM: Order cancelled - Patient discharged Performed By: #### L 500.2500, L100.0100 ####[facility] [address] [place], [address] NEUT% Normal 47-70 [facility] Comment on above: Result Comment: Canc elled via OM: Order cancelled - Patient discharged Performed By: #### L 500.2500, L100.0100 ####[facility] [address] [place], [address] PLT Normal 150-450 [facility] Comment on above: Result Comment: Canc elled via OM: Order cancelled - Patient discharged Performed By: #### L 500.2500, L100.0100 ####[facility] [address] [place], [address] RBC Normal 4.6-6.2 [facility] Comment on above: Result Comment: Canc elled via OM: Order cancelled - Patient discharged Performed By: #### L 500.2500, L100.0100 ####[facility] [address] [place], [address] RDW CV Normal 11.6-14.6 [facility] Comment on above: Result Comment: Canc elled via OM: Order cancelled - Patient discharged Performed By: #### L 500.2500, L100.0100 ####[facility] [address] [place], [address] RDW SD Normal 35.1-43.9 [facility] Comment on above: Result Comment: Canc elled via OM: Order cancelled - Patient discharged Performed By: #### L 500.2500, L100.0100 ####[facility] [address] [place], [address] WBC Normal 4.4-11.0 [facility] Comment on above: Result Comment: Canc elled via OM: Order cancelled - Patient discharged Performed By: #### L 500.2500, L100.0100 ####[facility] [address] [place], [address] Culture, Blood (WB)on 2024 CUB Blood cultures x2, from two different sites No growth in 5 days. Normal [facility] Comment on above: Performed By: #### M 200.1000 ####[facility] [address] [place], [address] Basic Metabolic Profile (BMP )on 06-13-2024 BUN Normal 4-19 [facility] Comment on above: Result Comment: Canc elled via OM: Order cancelled - Patient discharged Performed By: #### L 500.2500, L100.0100 ####[facility] [address] [place], [address] BUN/CRE Normal 10-20 [facility] Comment on above: Result Comment: Canc elled via OM: Order cancelled - Patient discharged Performed By: #### L 500.2500, L100.0100 ####[facility] [address] [place], [address] Calcium Normal 7.6-11.0 [facility] Comment on above: Result Comment: Canc elled via OM: Order cancelled - Patient discharged Performed By: #### L 500.2500, L100.0100 ####[facility] [address] [place], [address] CL Normal 98-108 [facility] Comment on above: Result Comment: Canc elled via OM: Order cancelled - Patient discharged Performed By: #### L 500.2500, L100.0100 ####[facility] [address] [place], [address] CO2 Normal 21.0-32.0 [facility] Comment on above: Result Comment: Canc elled via OM: Order cancelled - Patient discharged Performed By: #### L 500.2500, L100.0100 ####[facility] [address] [place], [address] CREAT,SERUM Normal 0.70-1.20 [facility] Comment on above: Result Comment: Canc elled via OM: Order cancelled - Patient discharged Performed By: #### L 500.2500, L100.0100 ####[facility] [address] [place], [address] eGFR Normal >60 [facility] Comment on above: Result Comment: Canc elled via OM: Order cancelled - Patient discharged Performed By: #### L 500.2500, L100.0100 ####[facility] [address] [place], [address] GAP Normal 5-15 [facility] Comment on above: Result Comment: Canc elled via OM: Order cancelled - Patient discharged Performed By: #### L 500.2500, L100.0100 ####[facility] [address] [place], [address] GLU Normal 70-99 [facility] Comment on above: Result Comment: Canc elled via OM: Order cancelled - Patient discharged Performed By: #### L 500.2500, L100.0100 ####[facility] [address] [place], [address] Potassium Normal 3.3-5.1 [facility] Comment on above: Result Comment: Canc elled via OM: Order cancelled - Patient discharged Performed By: #### L 500.2500, L100.0100 ####[facility] [address] [place], [address] Basic Metabolic Profile (BMP) Normal 133-145 [facility] Comment on above: Result Comment: Canc elled via OM: Order cancelled - Patient discharged Performed By: #### L 500.2500, L100.0100 ####[facility] [address] [place], [address] CBC W/Diff, Automatedon - Absolute Neut Normal 2.0-7.7 [facility] Comment on above: Result Comment: Canc elled via OM: Order cancelled - Patient discharged Performed By: #### L 500.2500, L100.0100 ####[facility] [address] [place], [address] HCT Normal 40-54 [facility] Comment on above: Result Comment: Canc elled via OM: Order cancelled - Patient discharged Performed By: #### L 500.2500, L100.0100 ####[facility] [address] [place], [address] HGB Normal 13.0-16.5 [facility] Comment on above: Result Comment: Canc elled via OM: Order cancelled - Patient discharged Performed By: #### L 500.2500, L100.0100 ####[facility] [address] [place], [address] MCH Normal 27.0-32.0 [facility] Comment on above: Result Comment: Canc elled via OM: Order cancelled - Patient discharged Performed By: #### L 500.2500, L100.0100 ####[facility] [address] [place], [address] MCHC Normal 32-36 [facility] Comment on above: Result Comment: Canc elled via OM: Order cancelled - Patient discharged Performed By: #### L 500.2500, L100.0100 ####[facility] [address] [place], [address] MCV Normal 80-94 [facility] Comment on above: Result Comment: Canc elled via OM: Order cancelled - Patient discharged Performed By: #### L 500.2500, L100.0100 ####[facility] [address] [place], [address] NEUT% Normal 47-70 [facility] Comment on above: Result Comment: Canc elled via OM: Order cancelled - Patient discharged Performed By: #### L 500.2500, L100.0100 ####[facility] [address] [place], [address] PLT Normal 150-450 [facility] Comment on above: Result Comment: Canc elled via OM: Order cancelled - Patient discharged Performed By: #### L 500.2500, L100.0100 ####[facility] [address] [place], [address] RBC Normal 4.6-6.2 [facility] Comment on above: Result Comment: Canc elled via OM: Order cancelled - Patient discharged Performed By: #### L 500.2500, L100.0100 ####[facility] [address] [place], [address] RDW CV Normal 11.6-14.6 [facility] Comment on above: Result Comment: Canc elled via OM: Order cancelled - Patient discharged Performed By: #### L 500.2500, L100.0100 ####[facility] [address] [place], [address] RDW SD Normal 35.1-43.9 [facility] Comment on above: Result Comment: Canc elled via OM: Order cancelled - Patient discharged Performed By: #### L 500.2500, L100.0100 ####[facility] [address] [place], [address] WBC Normal 4.4-11.0 [facility] Comment on above: Result Comment: Canc elled via OM: Order cancelled - Patient discharged Performed By: #### L 500.2500, L100.0100 ####[facility] [address] [place], [address] Absolute lymphocyte countOrd ered By: Juliana Shaw on 06-12-2024 Lymphocytes Auto (Unsp spec) [#/Vol] 1.86 10*3/uL 0.83-4.51 [facility] Absolute neutrophil countOrd ered By: Juliana Shaw on 06-12-2024 Neutrophils (Bld) [#/Vol] 4.4 10*3/uL 2.0-7.7 [facility] Anion gap in Serum or Plasma Ordered By: Juliana Shaw on 06-12-2024 Anion gap [Moles/Vol] 11 mmol/L 5-15 [facility] Automated blood erythrocyte countOrdered By: Juliana Shaw on 06-12-2024 RBC (Bld) [#/Vol] 4.32 10*6/uL Low 4.6-6.2 [facility] Comment on above: Performed By: #### L 100.0100, L500.2500 ####[facility] [address] [place], [address] Automated blood hematocrit ( percentage)Ordered By: Juliana Shaw on 06-12-2024 Hematocrit (Bld) [Volume fraction] 38.4 % Low 40-54 [facility] Comment on above: Performed By: #### L 100.0100, L500.2500 ####[facility] [address] [place], [address] Automated lymphocyte count a s percentage of total leukocytesOrdered By: Juliana Shaw on 06-12-2024 Lymphocytes/100 WBC (Bld) 24.3 % Normal 19-41 [facility] Comment on above: Performed By: #### L 100.0100, L500.2500 ####[facility] [address] [place], [address] Lymphocytes/100 WBC Auto (Unsp spec) 24.3 % - [facility] BUN/creatinine ratioOrdered By: Juliana Shaw on 06-12-2024 Urea nitrogen/Creatinine [Mass ratio] 25.3 mg/mg High 10-20 [facility] Basic Metabolic Profile (BMP )on 06-12-2024 BUN/CRE 25.3 RATIO High 10-20 [facility] Comment on above: Performed By: #### L 100.0100, L500.2500 ####[facility] [address] [place], [address] ECRCL 97.57 ml/min Normal 50-250 [facility] Comment on above: Performed By: #### L 100.0100, L500.2500 ####[facility] [address] [place], [address] GAP 11 Normal 5-15 [facility] Comment on above: Performed By: #### L 100.0100, L500.2500 ####[facility] [address] [place], [address] Basophil percentageOrdered B y: Juliana Shaw on 06-12-2024 Basophils/100 WBC (Bld) 0.7 % Normal 0-1 [facility] Comment on above: Performed By: #### L 100.0100, L500.2500 ####[facility] [address] [place], [address] CBC W/Diff, Automatedon 05-28 Absolute Lymph 1.86 X10 3/uL Normal 0.83-4.51 [facility] Comment on above: Performed By: #### L 100.0100, L500.2500 ####[facility] [address] [place], [address] Absolute Neut 4.4 X10 3/uL Normal 2.0-7.7 [facility] Comment on above: Performed By: #### L 100.0100, L500.2500 ####[facility] [address] [place], [address] IG% 2.100 High 0.0-0.9 [facility] Comment on above: Result Comment: IG% - Immature Granulocytes (promyelocytes, myelocytes andmetamyelocytes) > 1% indicates that a LEFT SHIFT is Present. Performed By: #### L 100.0100, L500.2500 ####[facility] [address] [place], [address] Nucleated RBC (Bld) [#/Vol] 0 10*3/uL Normal 0-5 [facility] Comment on above: Performed By: #### L 100.0100, L500.2500 ####[facility] [address] [place], [address] RDW SD 53.4 fl High 35.1-43.9 [facility] Comment on above: Performed By: #### L 100.0100, L500.2500 ####[facility] [address] [place], [address] Carbon dioxide, total [Moles /volume] in Central venous bloodOrdered By: Juliana Shaw on 06-12-2024 CO2 [Moles/Vol] 23.1 mmol/L Normal 21.0-32.0 [facility] Comment on above: Performed By: #### L 100.0100, L500.2500 ####[facility] [address] [place], [address] Chloride assayOrdered By: Carlos Shaw on 06-12-2024 Chloride [Moles/Vol] 102 mmol/L Normal 98-108 [facility] Comment on above: Performed By: #### L 100.0100, L500.2500 ####[facility] [address] [place], [address] Discharge Instructionon 05-28 Discharge Instruction Normal [facility] Eosinophil percentageOrdered By: Juliana Shaw on 06-12-2024 Eosinophils/100 WBC (Bld) 3.5 % Normal 0-5 [facility] Comment on above: Performed By: #### L 100.0100, L500.2500 ####[facility] [address] [place], [address] Erythrocyte distribution wid th ratioOrdered By: Juliana Shaw on 06-12-2024 Erythrocyte distribution width (RBC) [Ratio] 16.4 % High 11.6-14.6 [facility] Comment on above: Performed By: #### L 100.0100, L500.2500 ####[facility] [address] [place], [address] Erythrocyte distribution wid th standard deviationOrdered By: Juliana Shaw on 06-12-2024 Erythrocyte distribution width (RBC) [Entitic vol] 53.4 fL High 35.1-43.9 [facility] Erythrocyte distribution width (RBC) [Ratio] 53.4 fl High 35.1-43.9 [facility] Estimation of creatinine moon aranceOrdered By: Juliana Shaw on 06-12-2024 Estimated Creatinine Clearance Calc 97.57 ml/min 50-250 [facility] GFR/1.73 sq M.predicted elias g non-blacks MDRD (S/P/Bld) [Vol rate/Area]Ordered By: Juliana Shaw on 06-12-2024 Estimated GFR (MDRD) Non-Af Amer 107 >60 [facility] Comment on above: mL/min/1.73m2 CKD-EP I Creatinine Equation (2020) Glomerular filtration rate ( GFR) estimation/1.73 sq m using serum, plasma, or whole bOrdered By: Juliana Shaw on 06-12-2024 GFR/1.73 sq M.predicted among non-blacks MDRD (S/P/Bld) [Vol rate/Area] 107 mL/min/{1.73_m2} Normal >60 [facility] Comment on above: mL/min/1.73m2 CKD-EP I Creatinine Equation (2020) Result Comment: mL/m in/1.73m2 CKD-EPI Creatinine Equation (2020) Performed By: #### L 100.0100, L500.2500 ####[facility] [address] [facility] [place], [place], [id number] Hemoglobin measurementOrdere d By: Juliana Shaw on 06-12-2024 Hemoglobin (Bld) [Mass/Vol] 12.3 g/dL Low 13.0-16.5 [facility] Comment on above: Performed By: #### L 100.0100, L500.2500 ####[facility] [address] [place], [place], [address] Immature granulocytes/100 WB C Auto (Bld)Ordered By: Juliana Shaw on 06-12-2024 Immature granulocytes/100 WBC (Bld) 2.100 % High 0.0-0.9 [facility] Comment on above: IG% - Immature Granu locytes (promyelocytes, myelocytes and metamyelocytes) > 1% indicates that a LEFT SHIFT is Present. Lymphocytes Auto (Unsp spec) [#/Vol]Ordered By: Juliana Shaw on 06-12-2024 Lymphocytes (Bld) [#/Vol] 1.86 10*3/uL 0.83-4.51 [facility] MCV (mean corpuscular volume ) determinationOrdered By: Juliana Shaw on 06-12-2024 MCV (RBC) [Entitic vol] 88.9 fL Normal 80-94 [facility] Comment on above: Performed By: #### L 100.0100, L500.2500 ####[facility] [address] [place], [address] Mean corpuscular hemoglobin (MCH) determinationOrdered By: Juliana Shaw on 06-12-2024 MCH (RBC) [Entitic mass] 28.5 pg Normal 27.0-32.0 [facility] Comment on above: Performed By: #### L 100.0100, L500.2500 ####[facility] [address] [place], [place], [id number] Mean corpuscular hemoglobin concentration (MCHC) determinationOrdered By: Juliana Shaw on 06-12-2024 MCHC (RBC) [Mass/Vol] 32.0 g/dL Normal 32-36 [facility] Comment on above: Performed By: #### L 100.0100, L500.2500 ####[facility] [address] [place], [address] Mean platelet volume determi nationOrdered By: Juliana Shaw on 06-12-2024 Platelet mean volume (Bld) [Entitic vol] 9.8 fL Normal 6.2-12.0 [facility] Comment on above: Performed By: #### L 100.0100, L500.2500 ####[facility] [address] [place], [address] Monocyte percentageOrdered B y: Juliana Shaw on 06-12-2024 Monocytes/100 WBC (Bld) 12.5 % High 0-10 [facility] Comment on above: Performed By: #### L 100.0100, L500.2500 ####[facility] [address] [place], [address] Neutrophil percentageOrdered By: Juliana Shaw on 06-12-2024 Neutrophils/100 WBC (Bld) 56.9 % Normal 47-70 [facility] Comment on above: Performed By: #### L 100.0100, L500.2500 ####[facility] [address] [place], [address] Nucleated red blood cell per centageOrdered By: Juliana Shaw on 06-12-2024 Nucleated RBC/100 WBC (Bld) [Ratio] 0 % 0-5 [facility] Platelet countOrdered By: Carlos Shaw on 06-12-2024 Platelets (Bld) [#/Vol] 288 10*3/uL Normal 150-450 [facility] Comment on above: Performed By: #### L 100.0100, L500.2500 ####[facility] [address] [place], [address] Potassium measurement (mass/ volume)Ordered By: Juliana Shaw on 06-12-2024 Potassium [Moles/Vol] 4.1 mmol/L Normal 3.3-5.1 [facility] Comment on above: Hemolysis present, R esults could be affected. Result Comment: Hemo lysis present, Results??could be affected.?? Performed By: #### L 100.0100, L500.2500 ####[facility] [address] [place], [address] Potassium (Unsp spec) [Mass/Vol] 4.1 mmol/L 3.3-5.1 [facility] Comment on above: Hemolysis present, R esults could be affected. Serum creatinine measurement (mass/volume)Ordered By: Juliana Shaw on 06-12-2024 Creatinine [Mass/Vol] 0.57 mg/dL Low 0.70-1.20 [facility] Comment on above: Performed By: #### L 100.0100, L500.2500 ####[facility] [address] [place], [address] Serum glucose measurement (m ass/volume)Ordered By: Juliana Shaw on 06-12-2024 Glucose [Mass/Vol] 163 mg/dL High 70-99 [facility] Comment on above: Performed By: #### L 100.0100, L500.2500 ####[facility] [address] [place], [address] Serum or plasma calcium marlyn urement (mass/volume)Ordered By: Juliana Shaw on 06-12-2024 Calcium [Mass/Vol] 9.3 mg/dL Normal 7.6-11.0 [facility] Comment on above: Performed By: #### L 100.0100, L500.2500 ####[facility] [address] [place], [address] Serum or plasma urea nitroge n measurement (mass/volume)Ordered By: Juliana Shwa on 06-12-2024 Urea nitrogen [Mass/Vol] 15 mg/dL Normal 4-19 [facility] Comment on above: Performed By: #### L 100.0100, L500.2500 ####[facility] [address] [place], [address] Sodium levelOrdered By: Nicci Shaw on 06-12-2024 Sodium [Moles/Vol] 137 mmol/L Normal 133-145 [facility] Comment on above: Performed By: #### L 100.0100, L500.2500 ####[facility] [address] [place], [address] Urine Cultureon 06-12-2024 URC Normal [facility] Comment on above: Performed By: #### M 100.2200 ####[facility] [address] [place], [address] White blood cell (WBC) count Ordered By: Juliana Shaw on 06-12-2024 WBC (Bld) [#/Vol] 7.7 10*3/uL Normal 4.4-11.0 [facility] Comment on above: Performed By: #### L 100.0100, L500.2500 ####[facility] [address] [place], [address] Basic Metabolic Profile (BMP )on 06-11-2024 BUN/CRE 21.5 RATIO High 10-20 [facility] Comment on above: Performed By: #### L 100.0100, L500.2500 ####[facility] [address] [place], [address] Calcium [Mass/Vol] 9.1 mg/dL Normal 7.6-11.0 [facility] Comment on above: Performed By: #### L 100.0100, L500.2500 ####[facility] [address] [place], [address] Chloride [Moles/Vol] 102 mmol/L Normal 98-108 [facility] Comment on above: Performed By: #### L 100.0100, L500.2500 ####[facility] [address] [place], [address] CO2 [Moles/Vol] 21.5 mmol/L Normal 21.0-32.0 [facility] Comment on above: Performed By: #### L 100.0100, L500.2500 ####[facility] [address] [place], [address] Creatinine [Mass/Vol] 0.61 mg/dL Low 0.70-1.20 [facility] Comment on above: Performed By: #### L 100.0100, L500.2500 ####[facility] [address] [place], [address] ECRCL 97.57 ml/min Normal 50-250 [facility] Comment on above: Performed By: #### L 100.0100, L500.2500 ####[facility] [address] [place], [address] GAP 11 Normal 5-15 [facility] Comment on above: Performed By: #### L 100.0100, L500.2500 ####[facility] [address] [place], [address] GFR/1.73 sq M.predicted among non-blacks MDRD (S/P/Bld) [Vol rate/Area] 105 mL/min/{1.73_m2} Normal >60 [facility] Comment on above: Result Comment: mL/m in/1.73m2 CKD-EPI Creatinine Equation (2020) Performed By: #### L 100.0100, L500.2500 ####[facility] [address] [place], [address] Glucose [Mass/Vol] 148 mg/dL High 70-99 [facility] Comment on above: Performed By: #### L 100.0100, L500.2500 ####[facility] [address] [place], [address] Potassium [Moles/Vol] 4.2 mmol/L Normal 3.3-5.1 [facility] Comment on above: Performed By: #### L 100.0100, L500.2500 ####[facility] [address] [place], [address] Sodium [Moles/Vol] 134 mmol/L Normal 133-145 [facility] Comment on above: Performed By: #### L 100.0100, L500.2500 ####[facility] [address] [place], [address] Urea nitrogen [Mass/Vol] 13 mg/dL Normal 4-19 [facility] Comment on above: Performed By: #### L 100.0100, L500.2500 ####[facility] [address] [place], [address] CBC W/Diff, Automatedon 05-28 Absolute Lymph 1.61 X10 3/uL Normal 0.83-4.51 [facility] Comment on above: Performed By: #### L 100.0100, L500.2500 ####[facility] [address] [place], [address] Absolute Neut 7.0 X10 3/uL Normal 2.0-7.7 [facility] Comment on above: Performed By: #### L 100.0100, L500.2500 ####[facility] [address] [place], [address] Basophils/100 WBC (Bld) 0.5 % Normal 0-1 [facility] Comment on above: Performed By: #### L 100.0100, L500.2500 ####[facility] [address] [place], [address] Eosinophils/100 WBC (Bld) 2.2 % Normal 0-5 [facility] Comment on above: Performed By: #### L 100.0100, L500.2500 ####[facility] [address] [place], [address] Erythrocyte distribution width (RBC) [Ratio] 16.6 % High 11.6-14.6 [facility] Comment on above: Performed By: #### L 100.0100, L500.2500 ####[facility] [address] [place], [address] Hematocrit (Bld) [Volume fraction] 37.0 % Low 40-54 [facility] Comment on above: Performed By: #### L 100.0100, L500.2500 ####[facility] [address] [place], [address] Hemoglobin (Bld) [Mass/Vol] 11.9 g/dL Low 13.0-16.5 [facility] Comment on above: Performed By: #### L 100.0100, L500.2500 ####[facility] [address] [place], [address] IG% 1.100 High 0.0-0.9 [facility] Comment on above: Result Comment: IG% - Immature Granulocytes (promyelocytes, myelocytes andmetamyelocytes) > 1% indicates that a LEFT SHIFT is Present. Performed By: #### L 100.0100, L500.2500 ####[facility] [address] [place], [address] Lymphocytes/100 WBC (Bld) 16.6 % Low 19-41 [facility] Comment on above: Performed By: #### L 100.0100, L500.2500 ####[facility] [address] [place], [address] MCH (RBC) [Entitic mass] 28.5 pg Normal 27.0-32.0 [facility] Comment on above: Performed By: #### L 100.0100, L500.2500 ####[facility] [address] [place], [address] MCHC (RBC) [Mass/Vol] 32.2 g/dL Normal 32-36 [facility] Comment on above: Performed By: #### L 100.0100, L500.2500 ####[facility] [address] [place], [address] MCV (RBC) [Entitic vol] 88.5 fL Normal 80-94 [facility] Comment on above: Performed By: #### L 100.0100, L500.2500 ####[facility] [address] [place], [address] Monocytes/100 WBC (Bld) 7.4 % Normal 0-10 [facility] Comment on above: Performed By: #### L 100.0100, L500.2500 ####[facility] [address] [place], [address] Neutrophils/100 WBC (Bld) 72.2 % High 47-70 [facility] Comment on above: Performed By: #### L 100.0100, L500.2500 ####[facility] [address] [place], [address] Nucleated RBC (Bld) [#/Vol] 0 10*3/uL Normal 0-5 [facility] Comment on above: Performed By: #### L 100.0100, L500.2500 ####[facility] [address] [place], [address] Platelet mean volume (Bld) [Entitic vol] 9.6 fL Normal 6.2-12.0 [facility] Comment on above: Performed By: #### L 100.0100, L500.2500 ####[facility] [address] [place], [address] Platelets (Bld) [#/Vol] 270 10*3/uL Normal 150-450 [facility] Comment on above: Performed By: #### L 100.0100, L500.2500 ####[facility] [address] [place], [address] RBC (Bld) [#/Vol] 4.18 10*6/uL Low 4.6-6.2 [facility] Comment on above: Performed By: #### L 100.0100, L500.2500 ####[facility] [address] [place], [address] RDW SD 53.7 fl High 35.1-43.9 [facility] Comment on above: Performed By: #### L 100.0100, L500.2500 ####[facility] [address] [place], [address] WBC (Bld) [#/Vol] 9.7 10*3/uL Normal 4.4-11.0 [facility] Comment on above: Performed By: #### L 100.0100, L500.2500 ####[facility] [address] [place], [address] Basic Metabolic Profile (BMP )on 06-10-2024 BUN/CRE 13.0 RATIO Normal 10-20 [facility] Comment on above: Performed By: #### L 500.2500, L100.0100 ####[facility] [address] [place], [address] Calcium [Mass/Vol] 9.0 mg/dL Normal 7.6-11.0 [facility] Comment on above: Performed By: #### L 500.2500, L100.0100 ####[facility] [address] [place], [address] Chloride [Moles/Vol] 102 mmol/L Normal 98-108 [facility] Comment on above: Performed By: #### L 500.2500, L100.0100 ####[facility] [address] [place], [address] CO2 [Moles/Vol] 23.2 mmol/L Normal 21.0-32.0 [facility] Comment on above: Performed By: #### L 500.2500, L100.0100 ####[facility] [address] [place], [address] Creatinine [Mass/Vol] 0.66 mg/dL Low 0.70-1.20 [facility] Comment on above: Performed By: #### L 500.2500, L100.0100 ####[facility] [address] [place], [address] ECRCL 97.57 ml/min Normal 50-250 [facility] Comment on above: Performed By: #### L 500.2500, L100.0100 ####[facility] [address] [place], [address] GAP 11 Normal 5-15 [facility] Comment on above: Performed By: #### L 500.2500, L100.0100 ####[facility] [address] [place], [address] GFR/1.73 sq M.predicted among non-blacks MDRD (S/P/Bld) [Vol rate/Area] 103 mL/min/{1.73_m2} Normal >60 [facility] Comment on above: Result Comment: mL/m in/1.73m2 CKD-EPI Creatinine Equation (2020) Performed By: #### L 500.2500, L100.0100 ####[facility] [address] [place], [address] Glucose [Mass/Vol] 127 mg/dL High 70-99 [facility] Comment on above: Performed By: #### L 500.2500, L100.0100 ####[facility] [address] [place], [address] Potassium [Moles/Vol] 4.0 mmol/L Normal 3.3-5.1 [facility] Comment on above: Performed By: #### L 500.2500, L100.0100 ####[facility] [address] [place], [address] Sodium [Moles/Vol] 137 mmol/L Normal 133-145 [facility] Comment on above: Performed By: #### L 500.2500, L100.0100 ####[facility] [address] [place], [address] Urea nitrogen [Mass/Vol] 9 mg/dL Normal 4-19 [facility] Comment on above: Performed By: #### L 500.2500, L100.0100 ####[facility] [address] [place], [address] CBC W/Diff, Automatedon 05-28 Absolute Lymph 1.90 X10 3/uL Normal 0.83-4.51 [facility] Comment on above: Performed By: #### L 500.2500, L100.0100 ####[facility] [address] [place], [address] Absolute Neut 12.1 X10 3/uL High 2.0-7.7 [facility] Comment on above: Performed By: #### L 500.2500, L100.0100 ####[facility] [address] [place], [address] Basophils/100 WBC (Bld) 0.3 % Normal 0-1 [facility] Comment on above: Performed By: #### L 500.2500, L100.0100 ####[facility] [address] [place], [address] Eosinophils/100 WBC (Bld) 1.4 % Normal 0-5 [facility] Comment on above: Performed By: #### L 500.2500, L100.0100 ####[facility] [address] [place], [address] Erythrocyte distribution width (RBC) [Ratio] 17.1 % High 11.6-14.6 [facility] Comment on above: Performed By: #### L 500.2500, L100.0100 ####[facility] [address] [place], [address] Hematocrit (Bld) [Volume fraction] 38.1 % Low 40-54 [facility] Comment on above: Performed By: #### L 500.2500, L100.0100 ####[facility] [address] [place], [address] Hemoglobin (Bld) [Mass/Vol] 12.3 g/dL Low 13.0-16.5 [facility] Comment on above: Performed By: #### L 500.2500, L100.0100 ####[facility] [address] [place], [address] IG% 1.400 High 0.0-0.9 [facility] Comment on above: Result Comment: IG% - Immature Granulocytes (promyelocytes, myelocytes andmetamyelocytes) > 1% indicates that a LEFT SHIFT is Present. Performed By: #### L 500.2500, L100.0100 ####[facility] [address] [place], [address] Lymphocytes/100 WBC (Bld) 12.1 % Low 19-41 [facility] Comment on above: Performed By: #### L 500.2500, L100.0100 ####[facility] [address] [place], [address] MCH (RBC) [Entitic mass] 28.8 pg Normal 27.0-32.0 [facility] Comment on above: Performed By: #### L 500.2500, L100.0100 ####[facility] [address] [place], [address] MCHC (RBC) [Mass/Vol] 32.3 g/dL Normal 32-36 [facility] Comment on above: Performed By: #### L 500.2500, L100.0100 ####[facility] [address] [place], [address] MCV (RBC) [Entitic vol] 89.2 fL Normal 80-94 [facility] Comment on above: Performed By: #### L 500.2500, L100.0100 ####[facility] [address] [place], [address] Monocytes/100 WBC (Bld) 8.2 % Normal 0-10 [facility] Comment on above: Performed By: #### L 500.2500, L100.0100 ####[facility] [address] [place], [address] Neutrophils/100 WBC (Bld) 76.6 % High 47-70 [facility] Comment on above: Performed By: #### L 500.2500, L100.0100 ####[facility] [address] [place], [address] Nucleated RBC (Bld) [#/Vol] 0 10*3/uL Normal 0-5 [facility] Comment on above: Performed By: #### L 500.2500, L100.0100 ####[facility] [address] [place], [address] Platelet mean volume (Bld) [Entitic vol] 9.9 fL Normal 6.2-12.0 [facility] Comment on above: Performed By: #### L 500.2500, L100.0100 ####[facility] [address] [place], [address] Platelets (Bld) [#/Vol] 278 10*3/uL Normal 150-450 [facility] Comment on above: Performed By: #### L 500.2500, L100.0100 ####[facility] [address] [place], [address] RBC (Bld) [#/Vol] 4.27 10*6/uL Low 4.6-6.2 [facility] Comment on above: Performed By: #### L 500.2500, L100.0100 ####[facility] [address] [place], [address] RDW SD 55.8 fl High 35.1-43.9 [facility] Comment on above: Performed By: #### L 500.2500, L100.0100 ####[facility] [address] [place], [address] WBC (Bld) [#/Vol] 15.8 10*3/uL High 4.4-11.0 [facility] Comment on above: Performed By: #### L 500.2500, L100.0100 ####[facility] [address] [place], [place], [address] Absolute neutrophil countOrd ered By: Hebertgerman Booneo on 06-09-2024 Neutrophils (Bld) [#/Vol] 15.9 10*3/uL High 2.0-7.7 [facility] Amorphous sediment detection in urine sediment by light microscopyOrdered By: Hebert Saavedra on 06-09-2024 Amorphous sediment LM Ql (Urine sed) 1+ [facility] Anion gap in Serum or Plasma Ordered By: Hebertgerman Saavedra on 06-09-2024 Anion gap [Moles/Vol] 13 mmol/L 5-15 [facility] BUN/creatinine ratioOrdered By: [facility] on 06-09-2024 Urea nitrogen/Creatinine [Mass ratio] 15.6 mg/mg 10-20 [facility] Basophil percentageOrdered B y: Hebertgerman Saavedra on 06-09-2024 Basophils/100 WBC (Bld) 0.5 % 0-1 [facility] Bilirubin Test strip Ql (U)O rdered By: Hebertgerman Saavedra on 06-09-2024 Bilirubin Ql (U) Negative Negative [facility] Bilirubin, totalOrdered By: Hebert Saavedra on 06-09-2024 Bilirubin [Mass/Vol] 0.29 mg/dL 0.00-1.30 [facility] Blood cultureOrdered By: Hebertgerman Saavedra on 06-09-2024 Bacteria identified Cx Nom (Bld) No growth in 5 days. [facility] Bacteria identified Cx Nom (Bld) No growth in 5 days. [facility] CBC W/Diff, Automatedon 05-28 Absolute Lymph 1.04 X10 3/uL Normal 0.83-4.51 [facility] Comment on above: Performed By: #### L 100.0100, L500.4050 ####[facility] [address] [place], [place], [address] Absolute Neut 15.9 X10 3/uL High 2.0-7.7 [facility] Comment on above: Performed By: #### L 100.0100, L500.4050 ####[facility] [address] [place], [address] Basophils/100 WBC (Bld) 0.5 % Normal 0-1 [facility] Comment on above: Performed By: #### L 100.0100, L500.4050 ####[facility] [address] [place], [address] Eosinophils/100 WBC (Bld) 0.4 % Normal 0-5 [facility] Comment on above: Performed By: #### L 100.0100, L500.4050 ####[facility] [address] [place], [address] Erythrocyte distribution width (RBC) [Ratio] 16.5 % High 11.6-14.6 [facility] Comment on above: Performed By: #### L 100.0100, L500.4050 ####[facility] [address] [place], [address] Hematocrit (Bld) [Volume fraction] 41.3 % Normal 40-54 [facility] Comment on above: Performed By: #### L 100.0100, L500.4050 ####[facility] [address] [place], [address] Hemoglobin (Bld) [Mass/Vol] 13.6 g/dL Normal 13.0-16.5 [facility] Comment on above: Performed By: #### L 100.0100, L500.4050 ####[facility] [address] [place], [address] IG% 0.700 Normal 0.0-0.9 [facility] Comment on above: Result Comment: IG% - Immature Granulocytes (promyelocytes, myelocytes andmetamyelocytes) > 1% indicates that a LEFT SHIFT is Present. Performed By: #### L 100.0100, L500.4050 ####[facility] [address] [place], [address] Lymphocytes/100 WBC (Bld) 5.6 % Low 19-41 [facility] Comment on above: Performed By: #### L 100.0100, L500.4050 ####[facility] [address] [place], [address] MCH (RBC) [Entitic mass] 28.8 pg Normal 27.0-32.0 [facility] Comment on above: Performed By: #### L 100.0100, L500.4050 ####[facility] [address] [place], [address] MCHC (RBC) [Mass/Vol] 32.9 g/dL Normal 32-36 [facility] Comment on above: Performed By: #### L 100.0100, L500.4050 ####[facility] [address] [place], [address] MCV (RBC) [Entitic vol] 87.3 fL Normal 80-94 [facility] Comment on above: Performed By: #### L 100.0100, L500.4050 ####[facility] [address] [place], [address] Monocytes/100 WBC (Bld) 6.9 % Normal 0-10 [facility] Comment on above: Performed By: #### L 100.0100, L500.4050 ####[facility] [address] [place], [address] Neutrophils/100 WBC (Bld) 85.9 % High 47-70 [facility] Comment on above: Performed By: #### L 100.0100, L500.4050 ####[facility] [address] [place], [address] Nucleated RBC (Bld) [#/Vol] 0 10*3/uL Normal 0-5 [facility] Comment on above: Performed By: #### L 100.0100, L500.4050 ####[facility] [address] [place], [address] Platelet mean volume (Bld) [Entitic vol] 9.3 fL Normal 6.2-12.0 [facility] Comment on above: Performed By: #### L 100.0100, L500.4050 ####[facility] [address] [place], [address] Platelets (Bld) [#/Vol] 310 10*3/uL Normal 150-450 [facility] Comment on above: Performed By: #### L 100.0100, L500.4050 ####[facility] [address] [place], [address] RBC (Bld) [#/Vol] 4.73 10*6/uL Normal 4.6-6.2 [facility] Comment on above: Performed By: #### L 100.0100, L500.4050 ####[facility] [address] [place], [address] RDW SD 52.9 fl High 35.1-43.9 [facility] Comment on above: Performed By: #### L 100.0100, L500.4050 ####[facility] [address] [place], [address] WBC (Bld) [#/Vol] 18.5 10*3/uL High 4.4-11.0 [facility] Comment on above: Performed By: #### L 100.0100, L500.4050 ####[facility] [address] [place], [address] Carbon dioxide, total [Moles /volume] in Central venous bloodOrdered By: Hebert Saavedra on 06-09-2024 CO2 [Moles/Vol] 22.0 mmol/L 21.0-32.0 [facility] Chest PA and Lateralon 06-09 Chest PA and Lateral Normal [facility] Chloride assayOrdered By: Adri Saavedra on 06-09-2024 Chloride [Moles/Vol] 103 mmol/L 98-108 [facility] Comprehensive Metabolic Prof ilon 06-09-2024 Albumin [Mass/Vol] 3.6 g/dL Normal 3.4-4.8 [facility] Comment on above: Performed By: #### L 100.0100, L500.4050 ####[facility] [address] [place], [address] Albumin/Globulin [Mass ratio] 1.0 {ratio} Normal 0.9-2.4 [facility] Comment on above: Performed By: #### L 100.0100, L500.4050 ####[facility] [address] [place], [address] ALK PHOS 137 U/L High 40-129 [facility] Comment on above: Performed By: #### L 100.0100, L500.4050 ####[facility] [address] [place], [address] ALT [Catalytic activity/Vol] 21 U/L Normal <=46 [facility] Comment on above: Performed By: #### L 100.0100, L500.4050 ####[facility] [address] [place], [address] AST [Catalytic activity/Vol] 25 U/L Normal <=37 [facility] Comment on above: Performed By: #### L 100.0100, L500.4050 ####[facility] [address] [place], [address] Bilirubin [Mass/Vol] 0.29 mg/dL Normal 0.00-1.30 [facility] Comment on above: Performed By: #### L 100.0100, L500.4050 ####[facility] [address] [place], [address] BUN/CRE 15.6 RATIO Normal 10-20 [facility] Comment on above: Performed By: #### L 100.0100, L500.4050 ####[facility] [address] [place], [address] Calcium [Mass/Vol] 9.3 mg/dL Normal 7.6-11.0 [facility] Comment on above: Performed By: #### L 100.0100, L500.4050 ####[facility] [address] [place], [address] Chloride [Moles/Vol] 103 mmol/L Normal 98-108 [facility] Comment on above: Performed By: #### L 100.0100, L500.4050 ####[facility] [address] [place], [address] CO2 [Moles/Vol] 22.0 mmol/L Normal 21.0-32.0 [facility] Comment on above: Performed By: #### L 100.0100, L500.4050 ####[facility] [address] [place], [address] Creatinine [Mass/Vol] 0.67 mg/dL Low 0.70-1.20 [facility] Comment on above: Performed By: #### L 100.0100, L500.4050 ####[facility] [address] [place], [address] ECRCL 98.85 ml/min Normal 50-250 [facility] Comment on above: Performed By: #### L 100.0100, L500.4050 ####[facility] [address] [place], [address] GAP 13 Normal 5-15 [facility] Comment on above: Performed By: #### L 100.0100, L500.4050 ####[facility] [address] [place], [address] GFR/1.73 sq M.predicted among non-blacks MDRD (S/P/Bld) [Vol rate/Area] 102 mL/min/{1.73_m2} Normal >60 [facility] Comment on above: Result Comment: mL/m in/1.73m2 CKD-EPI Creatinine Equation (2020) Performed By: #### L 100.0100, L500.4050 ####[facility] [address] [place], [address] Globulin (S) [Mass/Vol] 3.7 g/dL Normal 2.2-4.2 [facility] Comment on above: Performed By: #### L 100.0100, L500.4050 ####[facility] [address] [place], [address] Glucose [Mass/Vol] 149 mg/dL High 70-99 [facility] Comment on above: Performed By: #### L 100.0100, L500.4050 ####[facility] [address] [place], [address] Potassium [Moles/Vol] 4.1 mmol/L Normal 3.3-5.1 [facility] Comment on above: Performed By: #### L 100.0100, L500.4050 ####[facility] [address] [place], [address] Sodium [Moles/Vol] 138 mmol/L Normal 133-145 [facility] Comment on above: Performed By: #### L 100.0100, L500.4050 ####[facility] [address] [place], [address] T PROT 7.3 g/dL Normal 5.9-8.4 [facility] Comment on above: Performed By: #### L 100.0100, L500.4050 ####[facility] [address] [place], [address] Urea nitrogen [Mass/Vol] 10 mg/dL Normal 4-19 [facility] Comment on above: Performed By: #### L 100.0100, L500.4050 ####[facility] [address] [place], [address] Emergency Department Summary on 06-09-2024 Emergency Department Summary Normal [facility] Eosinophil percentageOrdered By: Hebert Saavedra on 06-09-2024 Eosinophils/100 WBC (Bld) 0.4 % 0-5 [facility] Epithelial cells.squamous LM Ql (Urine sed)Ordered By: Hebert Saavedra on 06-09-2024 Epithelial cells.squamous LM.HPF (Urine sed) [#/Area] 0 /[HPF] 0-5 [facility] Erythrocyte distribution wid th ratioOrdered By: Hebert Saavedra on 06-09-2024 Erythrocyte distribution width (RBC) [Ratio] 16.5 % High 11.6-14.6 [facility] Erythrocyte distribution wid th standard deviationOrdered By: Hebert Saavedra on 06-09-2024 Erythrocyte distribution width (RBC) [Entitic vol] 52.9 fL High 35.1-43.9 [facility] Estimation of creatinine moon aranceOrdered By: Hebert Saavedra on 06-09-2024 Estimated Creatinine Clearance Calc 98.85 ml/min 50-250 [facility] GFR/1.73 sq M.predicted elias g non-blacks MDRD (S/P/Bld) [Vol rate/Area]Ordered By: Hebert Saavedra on 06-09-2024 Estimated GFR (MDRD) Non-Af Amer 102 >60 [facility] Comment on above: mL/min/1.73m2 CKD-EP I Creatinine Equation (2020) Glucose Ql (U)Ordered By: Adri Saavedra on 06-09-2024 Urine Glucose (UA) Normal mg/dl Normal [facility] H AND P Exam - Hospitaliston 06-09-2024 H&P Exam - Hospitalist Normal [facility] Hematocrit Auto (Bld) [Volum e fraction]Ordered By: Hebert Saavedra on 06-09-2024 Hematocrit (Bld) [Volume fraction] 41.3 % 40-54 [facility] Hemoglobin measurementOrdere d By: Hebert Saavedra on 06-09-2024 Hemoglobin (Bld) [Mass/Vol] 13.6 g/dL 13.0-16.5 [facility] Immature granulocytes/100 WB C Auto (Bld)Ordered By: Hebert Saavedra on 06-09-2024 Immature granulocytes/100 WBC (Bld) 0.700 % 0.0-0.9 [facility] Comment on above: IG% - Immature Granu locytes (promyelocytes, myelocytes and metamyelocytes) > 1% indicates that a LEFT SHIFT is Present. Influenza virus A and B and SARS-CoV-2 (COVID-19) and Respiratory syncytial virus RNAOrdered By: Hebertgerman Saavedra on 06-09-2024 SARS-CoV-2 (COVID-19) RNA IMER+probe Ql (Unsp spec) [facility] Ketones Test strip Ql (U)Ord ered By: Hebert Saavedra on 06-09-2024 Ketones Ql (U) Negative Negative [facility] Laboratory - Chemistry and C hemistry - challengeOrdered By: Hebert Saavedra on 06-09-2024 AST [Catalytic activity/Vol] 25 U/L <38 [facility] Lactic Acidon 06-09-2024 Lactate [Moles/Vol] 2.8 mmol/L Invalid Interpretation Code 0.0-2.0 [facility] Comment on above: Order Comment: Y Result Comment: Crit ical Result(s) Called at: 11:12 by: Dylan Mccabe??Resultsread back by same. Performed By: #### L 503.6005 ####[facility] [address] [place], [address] Lactic acid measurementOrder ed By: Hebert Saavedra on 06-09-2024 Lactate [Moles/Vol] 2.8 mmol/L High 0.0-2.0 [facility] Comment on above: Critical Result(s) C alled at: 11:12 by: Dylan Mccabe Results read back by carlos. Lymphocytes Auto (Unsp spec) [#/Vol]Ordered By: Hebert Saavedra on 06-09-2024 Lymphocytes (Bld) [#/Vol] 1.04 10*3/uL 0.83-4.51 [facility] Lymphocytes/100 WBC Auto (Un sp spec)Ordered By: Hebert Saavedra on 06-09-2024 Lymphocytes/100 WBC (Bld) 5.6 % Low 19-41 [facility] M100.678on 06-09-2024 M100.678 Pending SARS-CoV-2 (COVID 19) Negative INFLUENZA A Negative INFLUENZA B Negative RSV PCR Negative Normal [facility] Comment on above: Performed By: #### M 100.678 ####[facility] [address] [place], [address] MCV (mean corpuscular volume ) determinationOrdered By: Hebert Saavedra on 06-09-2024 MCV (RBC) [Entitic vol] 87.3 fL 80-94 [facility] Mean corpuscular hemoglobin (MCH) determinationOrdered By: Hebert Saavedra on 06-09-2024 MCH (RBC) [Entitic mass] 28.8 pg 27.0-32.0 [facility] Mean corpuscular hemoglobin concentration (MCHC) determinationOrdered By: Hebert Saavedra on 06-09-2024 MCHC (RBC) [Mass/Vol] 32.9 g/dL 32-36 [facility] Mean platelet volume determi nationOrdered By: Hebert Saavedra on 06-09-2024 Platelet mean volume (Bld) [Entitic vol] 9.3 fL 6.2-12.0 [facility] Microscopic analysis of urin e for red blood cells (RBC)Ordered By: Hebert Saavedra on 06-09-2024 Microscopic analysis of urine for red blood cells (RBC) 0-5 SEEN /hpf 0-5 [facility] Urine RBC 0-5 SEEN /hpf 0-5 [facility] Monocyte percentageOrdered B y: Hebert Saavedra on 06-09-2024 Monocytes/100 WBC (Bld) 6.9 % 0-10 [facility] Mucus LM Ql (Urine sed)Order ed By: Hebert Saavedra on 06-09-2024 Mucus Ql (Urine sed) 0 SEEN /hpf [facility] Neutrophil percentageOrdered By: Hebert Saavedra on 06-09-2024 Neutrophils/100 WBC (Bld) 85.9 % High 47-70 [facility] Nitrite Test strip Ql (U)Ord ered By: Hebert Saavedra on 06-09-2024 Nitrite Ql (U) Positive High Negative [facility] No Panel InformationOrdered By: Hebert Saavedra on 06-09-2024 25 U/L <38 [facility] Nucleated red blood cell per centageOrdered By: Hebert Saavedra on 06-09-2024 Nucleated RBC/100 WBC (Bld) [Ratio] 0 % 0-5 [facility] Platelet countOrdered By: Adri Saavedra on 06-09-2024 Platelets (Bld) [#/Vol] 310 10*3/uL 150-450 [facility] Potassium (Unsp spec) [Mass/ Vol]Ordered By: Hebert Saavedra on 06-09-2024 Potassium [Moles/Vol] 4.1 mmol/L 3.3-5.1 [facility] Protein Test strip Ql (U)Ord ered By: Hebert Saavedra on 06-09-2024 Protein Ql (U) 30 mg/dl High Negative [facility] RBC Auto (Bld) [#/Vol]Ordere d By: Hebert Saavedra on 06-09-2024 RBC (Bld) [#/Vol] 4.73 10*6/uL 4.6-6.2 [facility] Serum creatinine measurement (mass/volume)Ordered By: Hebert Saavedra on 06-09-2024 Creatinine [Mass/Vol] 0.67 mg/dL Low 0.70-1.20 [facility] Serum globulin measurementOr dered By: Hebert Saavedra on 06-09-2024 Globulin (S) [Mass/Vol] 3.7 g/dL 2.2-4.2 [facility] Serum glucose measurement (m ass/volume)Ordered By: Hebert Saavedra on 06-09-2024 Glucose [Mass/Vol] 149 mg/dL High 70-99 [facility] Serum or plasma alanine orozco otransferase (ALT) measurementOrdered By: Hebert Saavedra on 06-09-2024 ALT [Catalytic activity/Vol] 21 U/L <47 [facility] Serum or plasma albumin marlyn urement (mass/volume)Ordered By: Hebertgerman Saavedra on 06-09-2024 Albumin [Mass/Vol] 3.6 g/dL 3.4-4.8 [facility] Serum or plasma albumin/glob ulin mass ratioOrdered By: Hebert Saavedra on 06-09-2024 Albumin/Globulin [Mass ratio] 1.0 {ratio} 0.9-2.4 [facility] Serum or plasma alkaline marisol sphatase measurementOrdered By: Hebert Saavedra on 06-09-2024 ALP [Catalytic activity/Vol] 137 U/L High 40-129 [facility] Serum or plasma calcium marlyn urement (mass/volume)Ordered By: Hebert Saavedra on 06-09-2024 Calcium [Mass/Vol] 9.3 mg/dL 7.6-11.0 [facility] Serum or plasma urea nitroge n measurement (mass/volume)Ordered By: Hebert Saavedra on 06-09-2024 Urea nitrogen [Mass/Vol] 10 mg/dL 4-19 [facility] Sodium levelOrdered By: Hebertgerman Saavedra on 06-09-2024 Sodium [Moles/Vol] 138 mmol/L 133-145 [facility] Squamous epithelial cells de tection in urine sediment by light microscopyOrdered By: Hebertgerman Saavedra on 06-09-2024 Epithelial cells.squamous LM Ql (Urine sed) 0 SEEN /hpf 0-5 [facility] Total proteinOrdered By: Hebertgerman Saavedra on 06-09-2024 Protein [Mass/Vol] 7.3 g/dL 5.9-8.4 [facility] Urinalysis, Completeon 06-09 BACTERIA 2+ /hpf Normal None Seen [facility] Comment on above: Order Comment: CLEAN CATCH Performed By: #### L 400.0001 ####[facility] [address] [place], [address] EPI,SQUAMOUS 0 SEEN Normal 0-5 [facility] Comment on above: Order Comment: CLEAN CATCH Performed By: #### L 400.0001 ####[facility] [address] [place], [address] RBC 0-5 SEEN Normal 0-5 [facility] Comment on above: Order Comment: CLEAN CATCH Performed By: #### L 400.0001 ####[facility] [address] [place], [place], [address] WBC >100 SEEN Normal 0-5 [facility] Comment on above: Order Comment: CLEAN CATCH Performed By: #### L 400.0001 ####[facility] [address] [place], [address] AMORPHOUS 1+ Normal [facility] Comment on above: Order Comment: CLEAN CATCH Performed By: #### L 400.0001 ####[facility] [address] [place], [place], [id number] Mucus Ql (Urine sed) 0 SEEN Normal [facility] Comment on above: Order Comment: CLEAN CATCH Performed By: #### L 400.0001 ####[facility] [address] [place], [place], [id number] Urine blood detectionOrdered By: Hebert Saavedra on 06-09-2024 Urine Occult Blood 150 /ul High Negative [facility] Urine clarityOrdered By: Hebert Saavedra on 06-09-2024 Clarity (U) Cloudy Clear [facility] Urine color determinationOrd ered By: Hebert Saavedra on 06-09-2024 Color (U) Yellow Yellow [facility] Urine cultureOrdered By: Hebert Saavedra on 06-09-2024 Bacteria identified Cx Nom (U) Klebsiella oxytoca Abnormal [facility] Bacteria identified Cx Nom (U) Staphylococcus aureus Abnormal [facility] Urine glucose detectionOrder ed By: Hebert Saavedra on 06-09-2024 Glucose Ql (U) Normal mg/dl Normal [facility] Urine leukocyte esterase det ection by dipstickOrdered By: Hebert Saavedra on 06-09-2024 Leukocyte esterase Test strip Ql (U) 500 /ul High Negative [facility] Urine pHOrdered By: Hebert porter on 06-09-2024 pH (U) 7.0 [pH] 5.0 - 8.0 [facility] Urine sediment bacteria coun t by microscopy (number/high power field)Ordered By: Hebertgerman Saavedra on 06-09-2024 Bacteria LM.HPF (Urine sed) [#/Area] 2 /[HPF] None Seen [facility] Urine specific gravity measu rementOrdered By: Hebertgerman Saavedra on 06-09-2024 Specific gravity (U) [Rel density] 1.010 1.002-1.030 [facility] Urine urobilinogen measureme ntOrdered By: [facility] on 06-09-2024 Urobilinogen Ql (U) Normal mg/dl Normal [facility] Urobilinogen Ql (U)Ordered B y: [facility] on 06-09-2024 Urine Urobilinogen Normal mg/dl Normal [facility] White blood cell (WBC) count Ordered By: Hebert Saavedra on 06-09-2024 WBC (Bld) [#/Vol] 18.5 10*3/uL High 4.4-11.0 [facility] White blood cell countOrdere d By: Hebertgerman Saavedra on 06-09-2024 Urine WBC >100 SEEN /hpf 0-5 [facility] White blood cell count >100 SEEN /hpf 0-5 [facility] Cerv Spine 4 or 5 Viewson Cerv Spine 4 or 5 Views Normal [facility] Orthopedic Visit Reporton Orthopedic Visit Report Normal [facility] 36on 03-31-2024 36 Letter faxed to number provided. Successful fax confirmation scanned into media. Normal [facility] 36 Letter created, please fax [facility] 36 Patient need letter created for orders month SPT changes and care for any clogged SPT, per Jennifer. Fax order to [phone]. Please advise. [facility] 36 Name of caller: Jennifer Contact phone number: [phone] Relationship to Patient: [facility] Home Health Care Provider: Dr Casas Practice: Uro Chief Complaint/Reason for Call: Requesting a VERBAL ORDER Super Pubic Catheter Monthly Change. Jennifer: [phone] Patient changed insurance this is why the new Order is being requested. Best time of day caller can be reached: any Patient advised that office/PCP has 24-48 business hours to return their call: No Normal [facility] Prealbumin [id number] Prealbumin [Mass/Vol] 22 mg/dL Normal - [facility] Comment on above: Result Comment: Perf ormed at: - [facility] [address] [place], [place] [id number] Director: Rayo Wilkinson PhD, Phone: [phone] Performed By: #### L 501.9985, L100.0500, L500.4050, L3300.6400 ####[facility] [address] [place], [address] Albumin to globulin ratioOrd ered By: Kemi Rubio on 03-24-2024 Albumin/Globulin [Mass ratio] 0.7 {ratio} Low 0.9-2.4 [facility] Bilirubin, totalOrdered By: Kemi Rubio on 03-24-2024 Bilirubin [Mass/Vol] 0.30 mg/dL 0.20-1.00 [facility] Comment on above: For patients on eltr ombopag therapy, use of Dimension Pevely TBIL is not recommended. Blood urea nitrogen (BUN)/cr eatinine ratioOrdered By: Kemi Rubio on 03-24-2024 Urea nitrogen/Creatinine [Mass ratio] 20.9 mg/mg High 10- [facility] CBC-Complete Blood Cnt No Di ffon 03-24-2024 Erythrocyte distribution width (RBC) [Ratio] 17.0 % High 11.6-14.6 [facility] Comment on above: Performed By: #### L 501.9985, L100.0500, L500.4050, L3300.6400 ####[facility] [address] [place], [address] Hematocrit (Bld) [Volume fraction] 42.9 % Normal 40-54 [facility] Comment on above: Performed By: #### L 501.9985, L100.0500, L500.4050, L3300.6400 ####[facility] [address] [place], [address] Hemoglobin (Bld) [Mass/Vol] 13.4 g/dL Normal 13.0-16.5 [facility] Comment on above: Performed By: #### L 501.9985, L100.0500, L500.4050, L3300.6400 ####[facility] [address] [place], [address] MCH (RBC) [Entitic mass] 28.2 pg Normal 27.0-32.0 [facility] Comment on above: Performed By: #### L 501.9985, L100.0500, L500.4050, L3300.6400 ####[facility] [address] [place], [address] MCHC (RBC) [Mass/Vol] 31.2 g/dL Low 32-36 [facility] Comment on above: Performed By: #### L 501.9985, L100.0500, L500.4050, L3300.6400 ####[facility] [address] [place], [address] MCV (RBC) [Entitic vol] 90.1 fL Normal 80-94 [facility] Comment on above: Performed By: #### L 501.9985, L100.0500, L500.4050, L3300.6400 ####[facility] [address] [place], [address] Platelet mean volume (Bld) [Entitic vol] 10.0 fL Normal 6.2-12.0 [facility] Comment on above: Performed By: #### L 501.9985, L100.0500, L500.4050, L3300.6400 ####[facility] [address] [place], [address] Platelets (Bld) [#/Vol] 343 10*3/uL Normal 150-450 [facility] Comment on above: Performed By: #### L 501.9985, L100.0500, L500.4050, L3300.6400 ####[facility] [address] [place], [address] RBC (Bld) [#/Vol] 4.76 10*6/uL Normal 4.6-6.2 [facility] Comment on above: Performed By: #### L 501.9985, L100.0500, L500.4050, L3300.6400 ####[facility] [address] [place], [address] RDW SD 56.4 fl High 35.1-43.9 [facility] Comment on above: Performed By: #### L 501.9985, L100.0500, L500.4050, L3300.6400 ####[facility] [address] [place], [address] WBC (Bld) [#/Vol] 5.8 10*3/uL Normal 4.4-11.0 [facility] Comment on above: Performed By: #### L 501.9985, L100.0500, L500.4050, L3300.6400 ####[facility] [address] [place], [address] Carbon dioxide measurementOr dered By: Kemi Rubio on 03-24-2024 CO2 [Moles/Vol] 27.0 mmol/L 21.0-32.0 [facility] Chloride measurementOrdered By: Kemi Rubio on 03-24-2024 Chloride [Moles/Vol] 106 mmol/L 98-107 [facility] Comprehensive Metabolic Prof ilon 03-24-2024 Albumin [Mass/Vol] 2.8 g/dL Low 3.2-5.0 [facility] Comment on above: Performed By: #### L 501.9985, L100.0500, L500.4050, L3300.6400 ####[facility] [address] [place], [address] Albumin/Globulin [Mass ratio] 0.7 {ratio} Low 0.9-2.4 [facility] Comment on above: Performed By: #### L 501.9985, L100.0500, L500.4050, L3300.6400 ####[facility] [address] [place], [address] ALK P 141 U/L High 45-117 [facility] Comment on above: Performed By: #### L 501.9985, L100.0500, L500.4050, L3300.6400 ####[facility] [address] [place], [address] ALT [Catalytic activity/Vol] 38 U/L Normal 16-61 [facility] Comment on above: Performed By: #### L 501.9985, L100.0500, L500.4050, L3300.6400 ####[facility] [address] [place], [address] AST [Catalytic activity/Vol] 23 U/L Normal 15-37 [facility] Comment on above: Performed By: #### L 501.9985, L100.0500, L500.4050, L3300.6400 ####[facility] [address] [place], [address] Bilirubin [Mass/Vol] 0.30 mg/dL Normal 0.20-1.00 [facility] Comment on above: Result Comment: For patients on eltrombopag therapy, use of Dimension Pevely TBIL is not recommended. Performed By: #### L 501.9985, L100.0500, L500.4050, L3300.6400 ####[facility] [address] [place], [address] BUN/CRE 20.9 RATIO High 10-20 [facility] Comment on above: Performed By: #### L 501.9985, L100.0500, L500.4050, L3300.6400 ####[facility] [address] [place], [address] CA,Total 9.2 mg/dL Normal 8.5-10.1 [facility] Comment on above: Performed By: #### L 501.9985, L100.0500, L500.4050, L3300.6400 ####[facility] [address] [place], [address] Chloride [Moles/Vol] 106 mmol/L Normal 98-107 [facility] Comment on above: Performed By: #### L 501.9985, L100.0500, L500.4050, L3300.6400 ####[facility] [address] [place], [address] CO2 [Moles/Vol] 27.0 mmol/L Normal 21.0-32.0 [facility] Comment on above: Performed By: #### L 501.9985, L100.0500, L500.4050, L3300.6400 ####[facility] [address] [place], [address] Creatinine [Mass/Vol] 0.62 mg/dL Low 0.70-1.30 [facility] Comment on above: Result Comment: The validity of the calculated GFR GFRAA in patients over70 years has not been determined. Clinical correlation isessential. Performed By: #### L 501.9985, L100.0500, L500.4050, L3300.6400 ####[facility] [address] [place], [address] EST GFR - AA 165 mL/min Normal >60 [facility] Comment on above: Result Comment: Afri can Bangladeshi GFR Calc Performed By: #### L 501.9985, L100.0500, L500.4050, L3300.6400 ####[facility] [address] [place], [address] GAP 4 Low 5-15 [facility] Comment on above: Performed By: #### L 501.9985, L100.0500, L500.4050, L3300.6400 ####[facility] [address] [place], [address] GFR/1.73 sq M.predicted among non-blacks MDRD (S/P/Bld) [Vol rate/Area] 137 mL/min/{1.73_m2} Normal >60 [facility] Comment on above: Result Comment: Non- GFR Calc Performed By: #### L 501.9985, L100.0500, L500.4050, L3300.6400 ####[facility] [address] [place], [address] Globulin (S) [Mass/Vol] 4.3 g/dL High 2.2-4.2 [facility] Comment on above: Performed By: #### L 501.9985, L100.0500, L500.4050, L3300.6400 ####[facility] [address] [place], [address] Glucose [Mass/Vol] 114 mg/dL High 74-106 [facility] Comment on above: Result Comment: Fast ing Glucose result from 100 to 125 mg/dLsuggests IMPAIRED HOMEOSTASIS per A.D.A. criteria. Performed By: #### L 501.9985, L100.0500, L500.4050, L3300.6400 ####[facility] [address] [place], [address] Potassium [Moles/Vol] 4.3 mmol/L Normal 3.5-5.1 [facility] Comment on above: Performed By: #### L 501.9985, L100.0500, L500.4050, L3300.6400 ####[facility] [address] [place], [address] Sodium [Moles/Vol] 137 mmol/L Normal 136-145 [facility] Comment on above: Performed By: #### L 501.9985, L100.0500, L500.4050, L3300.6400 ####[facility] [address] [place], [address] T PROT 7.1 g/dL Normal 6.4-8.2 [facility] Comment on above: Performed By: #### L 501.9985, L100.0500, L500.4050, L3300.6400 ####[facility] [address] [place], [address] Urea nitrogen [Mass/Vol] 13 mg/dL Normal 7-18 [facility] Comment on above: Performed By: #### L 501.9985, L100.0500, L500.4050, L3300.6400 ####[facility] [address] [place], [address] Erythrocyte distribution wid th ratioOrdered By: Kemi Rubio on 03-24-2024 Erythrocyte distribution width (RBC) [Ratio] 17.0 % High 11.6-14.6 [facility] Erythrocyte distribution wid th standard deviationOrdered By: Kemi Rubio on 03-24-2024 Erythrocyte distribution width (RBC) [Entitic vol] 56.4 fL High 35.1-43.9 [facility] Estimated glomerular filtrat ion rate (GFR) AmericanOrdered By: Kemi Rubio on 03-24-2024 Estimated GFR (MDRD) Amer 165 mL/min >60 [facility] Comment on above: GFR Calc Glomerular filtration rate ( GFR) estimationOrdered By: Kemi Rubio on 03-24-2024 Estimated GFR (MDRD) Non-Af Amer 137 mL/min >60 [facility] Comment on above: Non- GFR Calc Glucose measurementOrdered B y: Kemi Rubio on 03-24-2024 Glucose [Mass/Vol] 114 mg/dL High 74-106 [facility] Comment on above: Fasting Glucose resu lt from 100 to 125 mg/dL suggests IMPAIRED HOMEOSTASIS per A.D.A. criteria. Hematocrit Auto (Bld) [Volum e fraction]Ordered By: Kemi Rubio on 03-24-2024 Hematocrit (Bld) [Volume fraction] 42.9 % 40-54 [facility] Hemoglobin A1con 03-24-2024 HbA1c (Bld) [Mass fraction] 6.5 % High 3.8-5.6 [facility] Comment on above: Result Comment: Norm al < 5.7 % Prediabetic 5.7 - 6.4 % Diabetic >or= 6.5 % Please note range changes. Performed By: #### L 501.9985, L100.0500, L500.4050, L3300.6400 ####[facility] [address] [place], [place], [address] Hemoglobin A1c percentageOrd ered By: Kemi Rubio on 03-24-2024 HbA1c (Bld) [Mass fraction] 6.5 % High 3.8-5.6 [facility] Comment on above: Normal < 5.7 % Predi abetic 5.7 - 6.4 % Diabetic >or= 6.5 % Please note range changes. Hemoglobin measurementOrdere d By: Kemi Rubio on 03-24-2024 Hemoglobin (Bld) [Mass/Vol] 13.4 g/dL 13.0-16.5 [facility] Laboratory - Chemistry and C hemistry - challengeOrdered By: Kemi Rubio on 03-24-2024 AST [Catalytic activity/Vol] 23 U/L 15-37 [facility] MCV (mean corpuscular volume ) determinationOrdered By: Kemi Rubio on 03-24-2024 MCV (RBC) [Entitic vol] 90.1 fL 80-94 [facility] Mean corpuscular hemoglobin (MCH) determinationOrdered By: Kemi Rubio on 03-24-2024 MCH (RBC) [Entitic mass] 28.2 pg 27.0-32.0 [facility] Mean corpuscular hemoglobin concentration (MCHC) determinationOrdered By: Kemi Rubio on 03-24-2024 MCHC (RBC) [Mass/Vol] 31.2 g/dL Low 32-36 [facility] Mean platelet volume determi nationOrdered By: Kemi Rubio on 03-24-2024 Platelet mean volume (Bld) [Entitic vol] 10.0 fL 6.2-12.0 [facility] Platelet countOrdered By: St selam Rubio on 03-24-2024 Platelets (Bld) [#/Vol] 343 10*3/uL 150-450 [facility] Potassium measurementOrdered By: Kemi Rubio on 03-24-2024 Potassium [Moles/Vol] 4.3 mmol/L 3.5-5.1 [facility] RBC Auto (Bld) [#/Vol]Ordere d By: Kemi Rubio on 03-24-2024 RBC (Bld) [#/Vol] 4.76 10*6/uL 4.6-6.2 [facility] Serum anion gap measurementO rdered By: Kemi Rubio on 03-24-2024 Anion gap [Moles/Vol] 4 mmol/L Low 5-15 [facility] Serum globulin measurementOr dered By: Kemi Rubio on 03-24-2024 Globulin (S) [Mass/Vol] 4.3 g/dL High 2.2-4.2 [facility] Serum or plasma alanine orozco otransferase (ALT) measurementOrdered By: Kemi Rubio on 03-24-2024 ALT [Catalytic activity/Vol] 38 U/L 16-61 [facility] Serum or plasma albumin marlyn urement (mass/volume)Ordered By: Kemi Rubio on 03-24-2024 Albumin [Mass/Vol] 2.8 g/dL Low 3.2-5.0 [facility] Serum or plasma alkaline marisol sphatase measurementOrdered By: Kemi Rubio on 03-24-2024 ALP [Catalytic activity/Vol] 141 U/L High 45-117 [facility] Serum or plasma calcium marlyn urement (mass/volume)Ordered By: Kemi Rubio on 03-24-2024 Calcium [Mass/Vol] 9.2 mg/dL 8.5-10.1 [facility] Serum or plasma creatinine m easurement (mass/volume)Ordered By: Kemi Rubio on 03-24-2024 Creatinine [Mass/Vol] 0.62 mg/dL Low 0.70-1.30 [facility] Comment on above: The validity of the calculated GFR & GFRAA in patients over 70 years has not been determined. Clinical correlation is essential. Serum or plasma urea nitroge n measurement (mass/volume)Ordered By: Kemi Rubio on 03-24-2024 Urea nitrogen [Mass/Vol] 13 mg/dL 7- [facility] Serum prealbumin measurement by immunoassayOrdered By: Kemi Rubio on 03-24-2024 Prealbumin [Mass/Vol] 22 mg/dL [facility] Comment on above: Performed at: [address] Director: Rayo Wilkinson PhD, Phone: [phone] Sodium levelOrdered By: Darryl Rubio on 03-24-2024 Sodium [Moles/Vol] 137 mmol/L 136-145 [facility] Total proteinOrdered By: John Rubio on 03-24-2024 Protein [Mass/Vol] 7.1 g/dL 6.4-8.2 [facility] White blood cell (WBC) count Ordered By: Kemi Rubio on 03-24-2024 WBC (Bld) [#/Vol] 5.8 10*3/uL 4.4-11.0 [facility] 36on 01-29-2024 36 Name of caller: Radha coronel Contact phone number: [phone] Relationship to Patient: [facility] Provider: Dr Casas Practice: Urology Chief Complaint/Reason for Call: Jaqueline stated that a voicemail was left on her managers phone and was calling back. Tried to call back line, no answer. Please call Jaqueline back to advise. Best time of day caller can be reached: Any Patient advised that office/PCP has 24-48 business hours to return their call: N/A Normal [facility] 36on 01-26-2024 36 Letter faxed to [facility] - ATTN: Jaqueline Your fax has been successfully sent to [facility] at [phone]. 01/26/2024 7:53:04 AM Conversion Record Successfully created cover sheet. Type: application/vnd.[employer] mlformats-officedocum ent.wordprocessingml. document G3 to TIFF #1: Success [image/g3] (48ms) GhostScript TIFF #1: Success [image/tiff] (190ms) Resubmitted: [application/postscri pt] Word Automation #1: Success [image/tiff] (1534ms) ([id number]:WORKSR V2) 01/26/2024 7:52:58 AM Transmission Record Sent to [phone] with remote ID [phone] Result: (0) Success Page record: 1 - 3 Elapsed time: 03:18 on channel 48 01/26/2024 7:52:47 AM Conversion Record [[id number]] Type: application/postscrip t G3 to TIFF #1: Success [image/g3] (64ms) GhostScript TIFF #1: Success [image/tiff] (379ms) ([id number]:WORKSR V1) 01/26/2024 7:52:40 AM Origin Record Created by [facility] 36on 01-25-2024 36 A letter has been created for home health orders. Please fax to home health agency. Thank you [facility] 36 Patient's spouse called and wanted to let us know that patient is in the ER at [facility] due to SPT being clogged. Home care saw patient this AM but could not change patient's catheter as they do not have orders to change SPT or flush it. Spoke with home care nurse Janell with [facility]. Janell states patient has been an established patient with them for a long time and the SPT is new. Currently they do not have orders to manage SPT. Per spouse they saw Dr. Casas on Thursday and orders were going to be written. Orders need created and faxed. Contact information included below. [facility]. [phone]. ATTN: Jaqueline [place] [address] Noted. [place] [address] S: Patient's home nurse Rod spoke with [facility] nurse regarding no urine in catheter B: Onset of symptoms/concern Thursday A: Rod, nurse with [facility], states that patient does not have urine [...] used: Urinary Catheter (e.g., Benson) Symptoms and Clgigrjjh-NOFBD-RV [facility] 36 Fiorella LVM stating she needs a verbal order stating the size of the SPT tube and frequency. Called Fiorella back and advised per last OV note that pt uses a #16fr SPT and it is to be changed monthly. Fiorella verbalized understanding. [facility] Anaerobic cultureOrdered By: Kemi Rubio on 04-06-2023 Bacteria identified Anaer cx Nom (Unsp spec) No anaerobic bacteria isolated. [facility] Bacteria identified Anaer cx Nom (Unsp spec) No anaerobic bacteria isolated. [facility] Bacteria identified Cx Nom ( Wound)Ordered By: Kemi Rubio on 04-06-2023 Wound Culture Staphylococcus aureus [facility] Wound Culture Corynebacterium striatum [facility] Wound Culture Enterococcus faecalis [facility] Wound Culture Staphylococcus aureus [facility] Wound Culture Corynebacterium striatum [facility] Wound Culture Enterococcus faecalis [facility] Gram stain for investigation of transfusion reactionOrdered By: Kemi Ramiro on 04-06-2023 Microscopic observation Gram stain Nom (Unsp spec) [facility] Microscopic observation Gram stain Nom (Unsp spec) [facility] Anaerobic cultureOrdered By: Kemi Ramiro on 11-11-2022 Bacteria identified Anaer cx Nom (Unsp spec) No anaerobic bacteria isolated. [facility] Bacteria identified Cx Nom ( Wound)Ordered By: Kemi Ramiro on 11-11-2022 Wound Culture Staphylococcus aureus [facility] Gram stain for investigation of transfusion reactionOrdered By: Kemi Ramiro on 11-11-2022 Microscopic observation Gram stain Nom (Unsp spec) [facility] Anaerobic cultureOrdered By: Kemi Ramiro on 11-10-2022 Bacteria identified Anaer cx Nom (Unsp spec) No anaerobic bacteria isolated. [facility] Bacteria identified Cx Nom ( Wound)Ordered By: Kemi Ramiro on 11-10-2022 Wound Culture Staphylococcus aureus [facility] Gram stain for investigation of transfusion reactionOrdered By: Kemi Ramiro on 11-10-2022 Microscopic observation Gram stain Nom (Unsp spec) [facility] Basophil percentageOrdered B y: Gera Smith on 10-17-2022 Chloride [Moles/Vol] 107 mmol/L 98-107 [facility] Glucose [Mass/Vol] 100 mg/dL 74-106 [facility] Comment on above: Fasting Glucose resu lt from 100 to 125 mg/dL suggests IMPAIRED HOMEOSTASIS per A.D.A. criteria. Potassium [Moles/Vol] 3.7 mmol/L 3.5-5.1 [facility] Sodium [Moles/Vol] 139 mmol/L 136-145 [facility] WBC (Bld) [#/Vol] 8.2 10*3/uL 4.4-11.0 [facility] Blood erythrocytes count (nu mber/volume)Ordered By: Gera Smith on 10-17-2022 RBC (Bld) [#/Vol] 5.03 10*6/uL 4.6-6.2 [facility] Blood hemoglobin measurement (mass/volume)Ordered By: Gera Smith on 10-17-2022 Hemoglobin (Bld) [Mass/Vol] 13.9 g/dL 13.0-16.5 [facility] Blood platelet mean volumeOr dered By: Gera Smith on 10-17-2022 Platelet mean volume (Bld) [Entitic vol] 9.8 fL 6.2-12.0 [facility] Determination of erythrocyte mean corpuscular volume (MCV)Ordered By: Gera Smith on 10-17-2022 MCV (RBC) [Entitic vol] 87.3 fL 80-94 [facility] Hematocrit Auto (Bld) [Volum e fraction]Ordered By: Gera Smith on 10-17-2022 Hematocrit (Bld) [Volume fraction] 43.9 % 40-54 [facility] Laboratory - Chemistry and C hemistry - challengeOrdered By: Gera Smith on 10-17-2022 CO2 [Moles/Vol] 28.0 mmol/L 21.0-32.0 [facility] Urea nitrogen/Creatinine [Mass ratio] 14.2 mg/mg 10-20 [facility] Laboratory - Hematology and Cell countsOrdered By: Gera Smith on 10-17-2022 Erythrocyte distribution width (RBC) [Entitic vol] 58.8 fL 35.1-43.9 [facility] Erythrocyte distribution width (RBC) [Ratio] 18.6 % 11.6-14.6 [facility] MCH (RBC) [Entitic mass] 27.6 pg 27.0-32.0 [facility] MCHC Auto (RBC) [Mass/Vol]Or dered By: Gera Smith on 10-17-2022 MCHC (RBC) [Mass/Vol] 31.7 g/dL 32-36 [facility] No Panel InformationOrdered By: Gera Smith on 10-17-2022 Estimated GFR (MDRD) Amer 187 mL/min >60 [facility] Comment on above: GFR Calc Estimated GFR (MDRD) Non-Af Amer 154 mL/min >60 [facility] Comment on above: Non- GFR Calc Thyroid Stimulating Hormone (TSH) 0.12 uIU/mL 0.358-3.74 [facility] Platelets bldOrdered By: Wendy Smith on 10-17-2022 Platelets (Bld) [#/Vol] 415 10*3/uL 150-450 [facility] Serum or plasma calcium marlyn urement (mass/volume)Ordered By: Gera Smith on 10-17-2022 Calcium [Mass/Vol] 9.3 mg/dL 8.5-10.1 [facility] Serum or plasma creatinine m easurement (mass/volume)Ordered By: Gera Smith on 10-17-2022 Creatinine [Mass/Vol] 0.56 mg/dL 0.70-1.30 [facility] Comment on above: The validity of the calculated GFR & GFRAA in patients over 70 years has not been determined. Clinical correlation is essential. Serum or plasma urea nitroge n measurement (mass/volume)Ordered By: Gera Smith on 10-17-2022 Urea nitrogen [Mass/Vol] 8 mg/dL 7-18 [facility] Thin prep Papanicolaou smear with manual screeningOrdered By: Gera Smith on 10-17-2022 Thin prep Papanicolaou smear with manual screening 4 5-15 [facility] Anaerobic cultureOrdered By: Kemi Rubio on 07-18-2022 Bacteria identified Anaer cx Nom (Unsp spec) No anaerobic bacteria isolated. [facility] Bacteria identified Cx Nom ( Wound)Ordered By: Kemi Rubio on 07-16-2022 Wound Culture Staphylococcus aureus [facility] Wound Culture Positive [facility] Gram stain for investigation of transfusion reactionOrdered By: Kemi Rubio on 07-15-2022 Microscopic observation Gram stain Nom (Unsp spec) [facility] Anaerobic cultureOrdered By: Kemi Rubio on 07-14-2022 Bacteria identified Anaer cx Nom (Unsp spec) No anaerobic bacteria isolated. [facility] Bacteria identified Cx Nom ( Wound)Ordered By: Kemi Rubio on 07-14-2022 Wound Culture Staphylococcus aureus [facility] Wound Culture Positive [facility] Gram stain for investigation of transfusion reactionOrdered By: Kemi Rubio on 07-14-2022 Microscopic observation Gram stain Nom (Unsp spec) [facility] Fungus cultureOrdered By: Dr Cinthia Messina on 05-29-2022 Fungus identified Cx Nom (Unsp spec) [facility] Fungus stainOrdered By: Dr. Messina on 05-29-2022 Fungus identified Fungus stain Nom (Unsp spec) [facility] Bacteria identified Cx Nom ( Wound)Ordered By: Dr. Messina on 05-07-2022 Wound Culture Staphylococcus aureus [facility] Wound Culture Corynebacterium striatum [facility] Absolute lymphocyte countOrd ered By: Dr. Singh on 05-02-2022 Lymphocytes Auto (Unsp spec) [#/Vol] 1.72 10*3/uL 0.83-4.51 [facility] Anaerobic cultureOrdered By: Dr. Messina on 05-02-2022 Bacteria identified Anaer cx Nom (Unsp spec) [facility] Basophil percentageOrdered B y: Dr. Singh on 05-02-2022 Basophils/100 WBC (Bld) 0.6 % 0-1 [facility] Chloride [Moles/Vol] 99 mmol/L 98-107 [facility] Eosinophils/100 WBC (Bld) 2.3 % 0-5 [facility] Glucose [Mass/Vol] 115 mg/dL 74-106 [facility] Comment on above: Fasting Glucose resu lt from 100 to 125 mg/dL suggests IMPAIRED HOMEOSTASIS per A.D.A. criteria. Neutrophils (Bld) [#/Vol] 7.8 10*3/uL 2.0-7.7 [facility] Neutrophils/100 WBC (Bld) 69.8 % 47-70 [facility] Potassium [Moles/Vol] 4.2 mmol/L 3.5-5.1 [facility] Sodium [Moles/Vol] 134 mmol/L 136-145 [facility] WBC (Bld) [#/Vol] 11.1 10*3/uL 4.4-11.0 [facility] Blood erythrocytes count (nu mber/volume)Ordered By: Dr. Singh on 05-02-2022 RBC (Bld) [#/Vol] 4.86 10*6/uL 4.6-6.2 [facility] Blood hemoglobin measurement (mass/volume)Ordered By: Dr. Singh on 05-02-2022 Hemoglobin (Bld) [Mass/Vol] 13.3 g/dL 13.0-16.5 [facility] Blood lymphocytes/100 leukoc ytesOrdered By: Dr. Singh on 05-02-2022 Lymphocytes/100 WBC (Bld) 15.5 % 19-41 [facility] Blood monocytes/100 leukocyt esOrdered By: Dr. Singh on 05-02-2022 Monocytes/100 WBC (Bld) 10.8 % 0-10 [facility] Blood platelet mean volumeOr dered By: Dr. Singh on 05-02-2022 Platelet mean volume (Bld) [Entitic vol] 9.7 fL 6.2-12.0 [facility] Determination of erythrocyte mean corpuscular volume (MCV)Ordered By: Dr. Singh on 05-02-2022 MCV (RBC) [Entitic vol] 85.0 fL 80-94 [facility] Hematocrit Auto (Bld) [Volum e fraction]Ordered By: Dr. Singh on 05-02-2022 Hematocrit (Bld) [Volume fraction] 41.3 % 40-54 [facility] Laboratory - Chemistry and C hemistry - challengeOrdered By: Dr. Singh on 05-02-2022 CO2 [Moles/Vol] 28.0 mmol/L 21.0-32.0 [facility] Urea nitrogen/Creatinine [Mass ratio] 22.5 mg/mg 10-20 [facility] Laboratory - Hematology and Cell countsOrdered By: Dr. Singh on 05-02-2022 Erythrocyte distribution width (RBC) [Entitic vol] 53.9 fL 35.1-43.9 [facility] Erythrocyte distribution width (RBC) [Ratio] 17.6 % 11.6-14.6 [facility] Immature granulocytes/100 WBC (Bld) 1.000 % 0.0-0.9 [facility] Comment on above: IG% - Immature Granu locytes (promyelocytes, myelocytes and metamyelocytes) > 1% indicates that a LEFT SHIFT is Present. MCH (RBC) [Entitic mass] 27.4 pg 27.0-32.0 [facility] Nucleated RBC/100 WBC (Bld) [Ratio] 0 % 0-5 [facility] Auto (RBC) [Mass/Vol]Or dered By: Dr. Singh on 05-02-2022 MCHC (RBC) [Mass/Vol] 32.2 g/dL 32-36 [facility] No Panel InformationOrdered By: Dr. Singh on 05-02-2022 Estimated Creatinine Clearance Calc 99.19 ml/min [facility] Estimated GFR (MDRD) Amer 153 mL/min >60 [facility] Comment on above: GFR Calc Estimated GFR (MDRD) Non-Af Amer 127 mL/min >60 [facility] Comment on above: Non- GFR Calc Platelets bldOrdered By: Dr. Singh on 05-02-2022 Platelets (Bld) [#/Vol] 375 10*3/uL 150-450 [facility] Serum or plasma calcium marlyn urement (mass/volume)Ordered By: Dr. Singh on 05-02-2022 Calcium [Mass/Vol] 9.5 mg/dL 8.5-10.1 [facility] Serum or plasma creatinine m easurement (mass/volume)Ordered By: Dr. Singh on 05-02-2022 Creatinine [Mass/Vol] 0.67 mg/dL 0.70-1.30 [facility] Comment on above: The validity of the calculated GFR & GFRAA in patients over 70 years has not been determined. Clinical correlation is essential. Serum or plasma urea nitroge n measurement (mass/volume)Ordered By: Dr. Singh on 05-02-2022 Urea nitrogen [Mass/Vol] 15 mg/dL 7-18 [facility] Thin prep Papanicolaou smear with manual screeningOrdered By: Dr. Singh on 05-02-2022 Thin prep Papanicolaou smear with manual screening 7 5-15 [facility] Bacteria identified Cx Nom ( Wound)Ordered By: Dr. Messina on 05-01-2022 Wound Culture Staphylococcus aureus [facility] Wound Culture Corynebacterium striatum [facility] Wound Culture Staphylococcus aureus [facility] Wound Culture Corynebacterium striatum [facility] Basophil percentageOrdered B y: Dr. Messina on 04-29-2022 Chloride [Moles/Vol] 102 mmol/L 98-107 [facility] Glucose [Mass/Vol] 89 mg/dL 74-106 [facility] Potassium [Moles/Vol] 4.3 mmol/L 3.5-5.1 [facility] Sodium [Moles/Vol] 137 mmol/L 136-145 [facility] WBC (Bld) [#/Vol] 6.2 10*3/uL 4.4-11.0 [facility] Blood erythrocytes count (nu mber/volume)Ordered By: Dr. Messina on 04-29-2022 RBC (Bld) [#/Vol] 4.38 10*6/uL 4.6-6.2 [facility] Blood hemoglobin measurement (mass/volume)Ordered By: Dr. Messina on 04-29-2022 Hemoglobin (Bld) [Mass/Vol] 11.9 g/dL 13.0-16.5 [facility] Blood platelet mean volumeOr dered By: Dr. Messina on 04-29-2022 Platelet mean volume (Bld) [Entitic vol] 9.5 fL 6.2-12.0 [facility] Determination of erythrocyte mean corpuscular volume (MCV)Ordered By: Dr. Messina on 04-29-2022 MCV (RBC) [Entitic vol] 85.8 fL 80-94 [facility] Gram stain for investigation of transfusion reactionOrdered By: Dr. Messina on 04-29-2022 Microscopic observation Gram stain Nom (Unsp spec) [facility] Microscopic observation Gram stain Nom (Unsp spec) [facility] Hematocrit Auto (Bld) [Volum e fraction]Ordered By: Dr. Messina on 04-29-2022 Hematocrit (Bld) [Volume fraction] 37.6 % 40-54 [facility] Laboratory - Chemistry and C hemistry - challengeOrdered By: Dr. Messina on 04-29-2022 CO2 [Moles/Vol] 29.0 mmol/L 21.0-32.0 [facility] Urea nitrogen/Creatinine [Mass ratio] 18.1 mg/mg 10-20 [facility] Laboratory - Hematology and Cell countsOrdered By: Dr. Messina on 04-29-2022 Erythrocyte distribution width (RBC) [Entitic vol] 55.2 fL 35.1-43.9 [facility] Erythrocyte distribution width (RBC) [Ratio] 17.6 % 11.6-14.6 [facility] MCH (RBC) [Entitic mass] 27.2 pg 27.0-32.0 [facility] MCHC Auto (RBC) [Mass/Vol]Or dered By: Dr. Messina on 04-29-2022 MCHC (RBC) [Mass/Vol] 31.6 g/dL 32-36 [facility] No Panel InformationOrdered By: Dr. Messina on 04-29-2022 Estimated Creatinine Clearance Calc 151.04 ml/min [facility] Estimated GFR (MDRD) Amer 247 mL/min >60 [facility] Comment on above: GFR Calc Estimated GFR (MDRD) Non-Af Amer 204 mL/min >60 [facility] Comment on above: Non- GFR Calc Platelets bldOrdered By: Dr. Messina on 04-29-2022 Platelets (Bld) [#/Vol] 352 10*3/uL 150-450 [facility] Serum or plasma calcium marlyn urement (mass/volume)Ordered By: Dr. Messina on 04-29-2022 Calcium [Mass/Vol] 8.8 mg/dL 8.5-10.1 [facility] Serum or plasma creatinine m easurement (mass/volume)Ordered By: Dr. Messina on 04-29-2022 Creatinine [Mass/Vol] 0.44 mg/dL 0.70-1.30 [facility] Comment on above: The validity of the calculated GFR & GFRAA in patients over 70 years has not been determined. Clinical correlation is essential. Serum or plasma transthyreti n measurement (mass/volume)Ordered By: Dr. Messina on 04-29-2022 Prealbumin [Mass/Vol] 13.4 mg/dL 20.0-40.0 [facility] Serum or plasma urea nitroge n measurement (mass/volume)Ordered By: Dr. Messina on 04-29-2022 Urea nitrogen [Mass/Vol] 8 mg/dL 7-18 [facility] Thin prep Papanicolaou smear with manual screeningOrdered By: Dr. Messina on 04-29-2022 Thin prep Papanicolaou smear with manual screening 6 5-15 [facility] No Panel InformationOrdered By: Dr. Bruce on 04-28-2022 Thyroid Stimulating Hormone (TSH) 0.63 uIU/mL 0.358-3.74 [facility] Clostridium difficile detect ion by polymerase chain reactionOrdered By: Cristy Verma on 04-04-2022 C. difficile DNA IMER+probe Ql (Unsp spec) [facility] Bacteria identified Anaer cx Nom (Unsp spec)Ordered By: Cristy Verma on 03-06-2022 Anaerobic Culture Clostridium perfringens [facility] Bacteria identified Cx Nom ( Wound)Ordered By: Cristy Verma on 03-02-2022 Wound Culture Escherichia coli [facility] Wound Culture Staphylococcus aureus [facility] Gram stain for investigation of transfusion reactionOrdered By: Cristy Verma on 02-28-2022 Microscopic observation Gram stain Nom (Unsp spec) [facility] Absolute lymphocyte countOrd ered By: Dr. Basurto on 02-08-2022 Lymphocytes Auto (Unsp spec) [#/Vol] 2.11 10*3/uL 0.83-4.51 [facility] Basophil percentageOrdered B y: Dr. Basurto on 02-08-2022 Basophil percentage 10-25 SEEN /hpf 0-5 [facility] Basophils/100 WBC (Bld) 0.3 % 0-1 [facility] Bilirubin [Mass/Vol] 0.40 mg/dL 0.20-1.00 [facility] Comment on above: For patients on eltr ombopag therapy, use of Dimension [place] TBIL is not recommended. Chloride [Moles/Vol] 103 mmol/L 98-107 [facility] Eosinophils/100 WBC (Bld) 0.3 % 0-5 [facility] Glucose [Mass/Vol] 107 mg/dL 74-106 [facility] Comment on above: Fasting Glucose resu lt from 100 to 125 mg/dL suggests IMPAIRED HOMEOSTASIS per A.D.A. criteria. Neutrophils (Bld) [#/Vol] 13.7 10*3/uL 2.0-7.7 [facility] Neutrophils/100 WBC (Bld) 78.6 % 47-70 [facility] Potassium [Moles/Vol] 3.4 mmol/L 3.5-5.1 [facility] Protein [Mass/Vol] 7.2 g/dL 6.4-8.2 [facility] Sodium [Moles/Vol] 138 mmol/L 136-145 [facility] WBC (Bld) [#/Vol] 17.4 10*3/uL 4.4-11.0 [facility] Bilirubin Test strip Ql (U)O rdered By: Dr. Basurto on 02-08-2022 Bilirubin Ql (U) Negative Negative [facility] Blood erythrocytes count (nu mber/volume)Ordered By: Dr. Basurto on 02-08-2022 RBC (Bld) [#/Vol] 4.47 10*6/uL 4.6-6.2 [facility] Blood hemoglobin measurement (mass/volume)Ordered By: Dr. Basurto on 02-08-2022 Hemoglobin (Bld) [Mass/Vol] 12.7 g/dL 13.0-16.5 [facility] Blood lymphocytes/100 leukoc ytesOrdered By: Dr. Basurto on 02-08-2022 Lymphocytes/100 WBC (Bld) 12.1 % 19-41 [facility] Blood monocytes/100 leukocyt esOrdered By: Dr. Basurto on 02-08-2022 Monocytes/100 WBC (Bld) 7.6 % 0-10 [facility] Blood platelet mean volumeOr dered By: Dr. Basurto on 02-08-2022 Platelet mean volume (Bld) [Entitic vol] 9.9 fL 6.2-12.0 [facility] Determination of erythrocyte mean corpuscular volume (MCV)Ordered By: Dr. Basurto on 02-08-2022 MCV (RBC) [Entitic vol] 88.6 fL 80-94 [facility] Hematocrit Auto (Bld) [Volum e fraction]Ordered By: Dr. Basurto on 02-08-2022 Hematocrit (Bld) [Volume fraction] 39.6 % 40-54 [facility] Ketones Test strip Ql (U)Ord ered By: Dr. Basurto on 02-08-2022 Ketones Ql (U) 5 mg/dl Negative [facility] Laboratory - Chemistry and C hemistry - challengeOrdered By: Dr. Basurto on 02-08-2022 ALP [Catalytic activity/Vol] 98 U/L 45-117 [facility] ALT [Catalytic activity/Vol] 16 U/L 16-61 [facility] CO2 [Moles/Vol] 28.0 mmol/L 21.0-32.0 [facility] Globulin (S) [Mass/Vol] 5.2 g/dL 2.2-4.2 [facility] Urea nitrogen/Creatinine [Mass ratio] 12.8 mg/mg 10-20 [facility] Laboratory - Hematology and Cell countsOrdered By: Dr. Basurto on 02-08-2022 Erythrocyte distribution width (RBC) [Entitic vol] 48.9 fL 35.1-43.9 [facility] Erythrocyte distribution width (RBC) [Ratio] 14.9 % 11.6-14.6 [facility] Immature granulocytes/100 WBC (Bld) 1.100 % 0.0-0.9 [facility] Comment on above: IG% - Immature Granu locytes (promyelocytes, myelocytes and metamyelocytes) > 1% indicates that a LEFT SHIFT is Present. MCH (RBC) [Entitic mass] 28.4 pg 27.0-32.0 [facility] Nucleated RBC/100 WBC (Bld) [Ratio] 0 % 0-5 [facility] MCHC Auto (RBC) [Mass/Vol]Or dered By: Dr. Basurto on 02-08-2022 MCHC (RBC) [Mass/Vol] 32.1 g/dL 32-36 [facility] Mucus LM Ql (Urine sed)Order ed By: Dr. Basurto on 02-08-2022 Mucus Ql (Urine sed) 0 SEEN /hpf [facility] Nitrite Test strip Ql (U)Ord ered By: Dr. Basurto on 02-08-2022 Nitrite Ql (U) Negative Negative [facility] No Panel InformationOrdered By: Dr. Basurto on 02-08-2022 Estimated Creatinine Clearance Calc 107.19 ml/min [facility] Estimated GFR (MDRD) Amer 166 mL/min >60 [facility] Comment on above: GFR Calc Estimated GFR (MDRD) Non-Af Amer 137 mL/min >60 [facility] Comment on above: Non- GFR Calc Platelets bldOrdered By: Dr. Basurto on 02-08-2022 Platelets (Bld) [#/Vol] 410 10*3/uL 150-450 [facility] Protein Test strip Ql (U)Ord ered By: Dr. Basurto on 02-08-2022 Protein Ql (U) 30 mg/dl Negative [facility] Serum or plasma albumin marlyn urement (mass/volume)Ordered By: Dr. Basurto on 02-08-2022 Albumin [Mass/Vol] 2.0 g/dL 3.2-5.0 [facility] Serum or plasma albumin/glob ulin mass ratioOrdered By: Dr. Basurto on 02-08-2022 Albumin/Globulin [Mass ratio] 0.4 {ratio} 0.9-2.4 [facility] Serum or plasma calcium marlyn urement (mass/volume)Ordered By: Dr. Basurto on 02-08-2022 Calcium [Mass/Vol] 9.0 mg/dL 8.5-10.1 [facility] Serum or plasma creatinine m easurement (mass/volume)Ordered By: Dr. Basurto on 02-08-2022 Creatinine [Mass/Vol] 0.62 mg/dL 0.70-1.30 [facility] Comment on above: The validity of the calculated GFR & GFRAA in patients over 70 years has not been determined. Clinical correlation is essential. Serum or plasma urea nitroge n measurement (mass/volume)Ordered By: Dr. Basurto on 02-08-2022 Urea nitrogen [Mass/Vol] 8 mg/dL 7-18 [facility] Squamous epithelial cells de tection in urine sediment by light microscopyOrdered By: Dr. Basurto on 02-08-2022 Epithelial cells.squamous LM Ql (Urine sed) 0 SEEN /hpf 0-5 [facility] Thin prep Papanicolaou smear with manual screeningOrdered By: Dr. Basurto on 02-08-2022 Thin prep Papanicolaou smear with manual screening 12 U/L 15-37 [facility] Thin prep Papanicolaou smear with manual screening 7 5-15 [facility] Urine blood detectionOrdered By: Dr. Basurto on 02-08-2022 RBC Ql (U) 50 /ul Negative [facility] RBC Ql (U) 0 SEEN /hpf 0-5 [facility] Urine clarityOrdered By: Dr. Basurto on 02-08-2022 Clarity (U) Cloudy Clear [facility] Urine color determinationOrd ered By: Dr. Basurto on 02-08-2022 Color (U) Gilma Yellow [facility] Urine glucose detectionOrder ed By: Dr. Basurto on 02-08-2022 Glucose Ql (U) Normal mg/dl Normal [facility] Urine leukocyte esterase det ection by dipstickOrdered By: Dr. Basurto on 02-08-2022 Leukocyte esterase Test strip Ql (U) 100 /ul Negative [facility] Urine pHOrdered By: Dr. Jarod vee on 02-08-2022 pH (U) 8.0 [pH] 5.0 - 8.0 [facility] Urine sediment bacteria coun t by microscopy (number/high power field)Ordered By: Dr. Basurto on 02-08-2022 Bacteria LM.HPF (Urine sed) [#/Area] 4 /[HPF] None Seen [facility] Urine specific gravity measu rementOrdered By: Dr. Basurto on 02-08-2022 Specific gravity (U) [Rel density] 1.010 1.002-1.030 [facility] Urobilinogen Auto test strip Ql (U)Ordered By: Dr. Basurto on 02-08-2022 Urobilinogen Ql (U) 8 mg/dl Normal [facility] CASE MANAGEMon 02-02-2019 CASE MANAGEM HNO ID: [id number] Author: Florence (Rn) JAZZY Mullins Service: Care Management Author Type: Registered Nurse Type: Care Mgt Progress Note Filed: 02/02/2019 12:05 PM Note Text: CARE MANAGEMENT DISCHARGE NOTE SERVICE DATE: 02/02/2019 SERVICE TIME: 12:01 PM LOS: 11 days Admission Date: 01/22/2019 DISCHARGE ARRANGEMENT (list agency and phone number) custodial facility: Was an expedited discharge program used? No Provider: Andrea at [place] CAREGIVER ASSESSMENT: Caregiver is ready, willing and able to meet the patient's needs as recommended by the inter-professional team? Yes Patient's transition needs and plan for meeting these needs: SNF at [facility] Does the patient have an acute stroke diagnosis, or has the patient had a stroke during this admission? No HANDOFF COMMUNICATION: Primary Care Physician: Name: Dr Brian Cardona Bedside nurse. Patient and Dasia. Summary of care sent to PCP Dr Cardona and [facility] TRANSPORTATION ARRANGEMENTS: Mode of Transportation: Ambulance Transportation Agency and Phone #: [facility] ( [facility] ) [phone] / [phone]. Date of Trip: 02/02/2019 Type of Service: BLS Non-emergency Is Patient Medicaid Pending: No Discussion of financial coverage occurred with Patient and Spouse . [employer] Chem[employer] Location: room 264 Destination: [facility] Financial Care Management Responsibility: None Estimated Charge: 0 Approving Car Pusher: YOSELIN ADDITIONAL CONTACT RESOURCES: NA Discharge written for patient to go to [facility]. Pt and agreeable. Precert obtained. Ambulance transport arranged per 's request. Discussed with her possibility of out of pocket expense after billed to insurance. Ambulance scheduled for 3 PM fruit picker. SIGNATURE: Florence Mullins RN PATIENT NAME: Jorge Covington DATE: February 02, 2019 TIME: 12:01 PM PAGER/CONTACT #: [phone] [facility] CASE MANAGEM HNO ID: [id number] Author: Florence (Rn) JAZZY Mullins Service: Care Management Author Type: Registered Nurse Type: Care Mgt Progress Note Filed: 02/02/2019 11:08 AM Note Text: CARE MANAGEMENT PROGRESS NOTE SERVICE DATE: 02/02/2019 SERVICE TIME: 11:08 AM LOS: 11 days IM letter given to patient on 02/02/2019. IM letter given and explained to patient. Precert obtained and pt to be discharged to [facility] today. Transportation arranged for 3 PM fruit picker. SIGNATURE: Florence Mullins RN PATIENT NAME: Jorge Covington DATE: February 02, 2019 TIME: 11:08 AM PAGER/CONTACT #: [phone] [facility] CBCon 02-02-2019 Erythrocyte distribution width (RBC) [Ratio] 17.4 % High 11.5-15.0 [facility] Comment on above: Performed By: #### C BC, CMP ####[facility] Aqklfgfsla7419 [phone] Hematocrit (Bld) [Volume fraction] 40.7 % Normal 39.0-51.0 [facility] Comment on above: Performed By: #### C RAFAEL, CMP ####[facility] Wvgcwwsubo4567 [phone] Hemoglobin (Bld) [Mass/Vol] 13.0 g/dL Normal 13.0-17.0 [facility] Comment on above: Performed By: #### C RAFAEL, CMP ####[facility] [address] [place] [address] MCH (RBC) [Entitic mass] 30.0 pG Normal 26.0-34.0 [facility] Comment on above: Performed By: #### C RAFAEL, CMP ####[facility] Ow[address] [place] [address] MCHC (RBC) [Mass/Vol] 31.9 g/dL Normal 30.5-36.0 [facility] Comment on above: Performed By: #### C RAFAEL, CMP ####[facility] [address] [place] [address] MCV (RBC) [Entitic vol] 94.0 fL Normal 80.0-100.0 [facility] Comment on above: Performed By: #### C RAFAEL, CMP ####[facility] [address] [place], [place] [phone] Platelet mean volume (Bld) [Entitic vol] 9.5 fL Normal 9.0-12.7 [facility] Comment on above: Performed By: #### C RAFAEL, CMP ####[facility] Xdictysqdu1292 [address]5160 Platelets (Bld) [#/Vol] 383 10*3/uL Normal 150-400 [facility] Comment on above: Performed By: #### C RAFAEL, CMP ####[facility] Gjwucxulxa9517 [address]5160 RBC (Bld) [#/Vol] 4.33 10*6/uL Normal 4.20-6.00 [facility] Comment on above: Performed By: #### C RAFAEL, CMP ####[facility] [address] [place], [place] [phone] WBC (Bld) [#/Vol] 10.09 10*3/uL Normal 3.70-11.00 [facility] Comment on above: Performed By: #### C BC, CMP ####[facility] Bccgzksfaq7064 [phone] CNCOon 02-02-2019 CNCO Letter Text Normal [facility] CONSULT PROGon 02-02-2019 CONSULT PROG HNO ID: [id number] Author: Magy Orosco Service: Gastroenterology Author Type: [...] office and repeat dilation as above. Magy Orosoc MD February 02, 2019 3:21 PM INTERVAL [...] Cooperative. NAD EYES: No scleral icterus SKIN: Gholson in color. No jaundice LUNGS: Scattered rhonchi [...] COLONOSCOPY Patient reports many years ago at [place] - further details unknown SIGNATURE: Mimi Ace, EMERGENCY RESPONSE TECHNICIAN DATE: February 02, 2019 TIME: 2:05 PM Normal [facility] Comp Metabolic Panelon 02-02 Albumin [Mass/Vol] 3.8 g/dL Low 3.9-4.9 [facility] Comment on above: Performed By: #### C BC, CMP ####[facility] [address] [place] [address] ALP [Catalytic activity/Vol] 64 U/L Normal 38-113 [facility] Comment on above: Performed By: #### C BC, CMP ####[facility] Av[address]xsq[address] [place] [address] ALT [Catalytic activity/Vol] 15 U/L Normal 10-54 [facility] Comment on above: Performed By: #### C BC, CMP ####[facility] Dm[address] [place] [address] Anion gap [Moles/Vol] 11 mmol/L Normal 9-18 [facility] Comment on above: Performed By: #### C BC, CMP ####[facility] Grwuikedjn3818 [place] [address] AST [Catalytic activity/Vol] 15 U/L Normal 14-40 [facility] Comment on above: Performed By: #### C BC, CMP ####[facility] [address] [place] [address] Bilirubin [Mass/Vol] 0.5 mg/dL Normal 0.2-1.3 [facility] Comment on above: Performed By: #### C BC, CMP ####[facility] Spyeqpsrvt[address] [place] [address] Calcium [Mass/Vol] 9.1 mg/dL Normal 8.5-10.2 [facility] Comment on above: Performed By: #### C BC, CMP ####[facility] Kfvmdchrld4990 [address]5160 Chloride [Moles/Vol] 99 mmol/L Normal 97-105 [facility] Comment on above: Performed By: #### C BC, CMP ####[facility] Xwxuyjawyd4847 [place] [address] CO2 [Moles/Vol] 24 mmol/L Normal 22-30 [facility] Comment on above: Performed By: #### C BC, CMP ####[facility] Hvpccswmiw3556 [place] [address] Creatinine [Mass/Vol] 0.75 mg/dL Normal 0.73-1.22 [facility] Comment on above: Performed By: #### C BC, CMP ####[facility] Nygwifqeli7789 [address]5160 eGFR- Amer. >60 Normal [facility] Comment on above: Performed By: #### C BC, CMP ####[facility] Cnhcfrpxjk1781 [address]5160 GFR/1.73 sq M predicted among non-blacks MDRD (S/P/Bld) [Vol rate/Area] mL/min/{1.73_m2} Normal [facility] Comment on above: Result Comment: eGFR [...] Performed By: #### C BC, CMP ####[facility] Lwnfqfoqcx2227 [address]5160 Glucose [Mass/Vol] 123 mg/dL High 74-99 [facility] Comment on above: Result Comment: The [place] Diabetes Association (ADA) provides guidance for cutoff [...] Standards of Medical Care in Diabetes 2016, [place] [employer]. Diabetes Care. 2016.39(Suppl 1). Performed By: #### C BC, CMP ####[facility] [address] [place] [address] Potassium [Moles/Vol] 4.4 mmol/L Normal 3.7-5.1 [facility] Comment on above: Performed By: #### C BC, CMP ####[facility] Kpuxwrhmty8722 [place] [address] Protein [Mass/Vol] 7.4 g/dL Normal 6.3-8.0 [facility] Comment on above: Performed By: #### C BC, CMP ####[facility] Xetaqujoay[address] [place] [address] Sodium [Moles/Vol] 134 mmol/L Low 136-144 [facility] Comment on above: Performed By: #### C BC, CMP ####[facility] Zqprw[address]ovs[address] [place] [address] Urea nitrogen [Mass/Vol] 21 mg/dL Normal 9-24 [facility] Comment on above: Performed By: #### C BC, CMP ####[facility] Tgam[address]vyc[address] [place] [address] THERAPY NTon 02-02-2019 THERAPY NT HNO ID: [id number] Author: Brook (Ratings Analyst) Jama Maire CCC/SEAFOOD TECHNOLOGY SPECIALIST Service: Speech/Swallow Author Type: Speech Language Pathologist Type: Therapy (PT/OT/Speech/Resp) Filed: 02/02/2019 9:27 AM Note Text: Speech Therapy Treatment SERVICE DATE: 02/02/2019 SERVICE TIME: 0850 to 0920 ROOM: [place] [address] Nursing Recommendations: Reinforce use of swallowing strategies [...] suspect Esophageal Dysphagia) Interventions Provided: Dysphagia Therapy (45810) $ Dysphagia Therapy (79153) Billed Units: 1 unit Skilled Interventions: Instructed [...] for this therapy evaluation/treatment. SIGNATURE: Brook Marie [facility]-SEAFOOD TECHNOLOGY SPECIALIST PATIENT NAME: Jorge Covington DATE: February 02, 2019 TIME: 9:23 AM [facility] ANES Diana 02-01-2019 ANES POST HNO ID: [id number] Author: Orlando Sparks MD Service: Anesthesiology Author [...] TIME: 12:29 PM PAGER/CONTACT #: [facility] ANES PREOPon 02-01-2019 ANES PREOP HNO ID: [id number] Author: Lemuel Beal Service: Anesthesiology Author Type: [...] Without Sciatica Copd (Chronic Obstructive Pulmonary Disease) ([facility]) Hypothyroidism Gerd (Gastroesophageal Reflux Disease) Overactive Bladder Septicemia Due to Klebsiella Pneumoniae ([facility]) PAST MEDICAL HISTORY Diagnosis Date - Closed fracture of cervical vertebra ([facility]) 05/07/2018 - Closed fracture of thoracic vertebra with routine healing 05/07/2018 - COPD (chronic obstructive pulmonary disease) ([facility]) - History of cervical fracture 01/28/2018 - Hypothyroidism - 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 No pertinent [...] mg INTRAVENOUS BID AC (0600/1600) Everton Gomes (Land Classifier) [place] 40 mg at 02/01/19 0534 - [MAR [...] February 01, 2019 TIME: 11:14 AM CSN: [id number] Normal [facility] Basic Metabolic Panlon 02-01 Anion gap [Moles/Vol] 12 mmol/L Normal 9-18 [facility] Comment on above: Performed By: #### C RAFAEL, BMP ####[facility] [address] [place] [address] Calcium [Mass/Vol] 9.7 mg/dL Normal 8.5-10.2 [facility] Comment on above: Performed By: #### C BC, BMP ####[facility] [address] [place] [address] Chloride [Moles/Vol] 100 mmol/L Normal 97-105 [facility] Comment on above: Performed By: #### C BC, BMP ####[facility] [address] [place] [address] CO2 [Moles/Vol] 24 mmol/L Normal 22-30 [facility] Comment on above: Performed By: #### C BC, BMP ####[facility] [address] [place] [address] Creatinine [Mass/Vol] 0.71 mg/dL Low 0.73-1.22 [facility] Comment on above: Performed By: #### C BC, BMP ####[facility] [address] [place] [address] eGFR- Amer. >60 Normal [facility] Comment on above: Performed By: #### C BC, BMP ####[facility] [address] [place] [address] GFR/1.73 sq M predicted among non-blacks MDRD (S/P/Bld) [Vol rate/Area] mL/min/{1.73_m2} Normal [facility] Comment on above: Result Comment: eGFR [...] Performed By: #### C BC, BMP ####[facility] Dkbtlreafd7147 [address]5160 Glucose [Mass/Vol] 124 mg/dL High 74-99 [facility] Comment on above: Result Comment: The [place] Diabetes Association (ADA) provides guidance for cutoff [...] Standards of Medical Care in Diabetes 2016, [place] [employer]. Diabetes Care. 2016.39(Suppl 1). Performed By: #### C BC, BMP ####[facility] Ldlzfdjzdd9492 [place] [address] Potassium [Moles/Vol] 4.5 mmol/L Normal 3.7-5.1 [facility] Comment on above: Performed By: #### C BC, BMP ####[facility] Gjgqkoqjzv7872 [place] [address] Sodium [Moles/Vol] 136 mmol/L Normal 136-144 [facility] Comment on above: Performed By: #### C BC, BMP ####[facility] Cqzqosnoyd2402 [place] [phone] Urea nitrogen [Mass/Vol] 22 mg/dL Normal 9-24 [facility] Comment on above: Performed By: #### C RAFAEL, BMP ####[facility] Qajizbbyvo3864 [place] [address] CASE MANAGEMon 02-01-2019 CASE MANAGEM HNO ID: [id number] Author: Florence (Rn) JAZZY Mullins Service: Care Management Author Type: Registered Nurse Type: Care Mgt Progress Note Filed: 02/01/2019 4:33 PM Note Text: CARE MANAGEMENT PROGRESS NOTE SERVICE DATE: 02/01/2019 SERVICE TIME: 09:00 AM LOS: 10 days Needs Prior to Discharge: Discharge Transportation;Other: See Comment(medical clearance) Precert obtained from insurance for [employer] at [place]. Call placed to Dasia to update. She [...] 01, 2019 TIME: 4:31 PM PAGER/CONTACT #: [phone] Normal [facility] CBCon 02-01-2019 Erythrocyte distribution width (RBC) [Ratio] 17.5 % High 11.5-15.0 [facility] Comment on above: Performed By: #### C RAFAEL, BMP ####[facility] Zetkutlwkt9082 [place] [address] Hematocrit (Bld) [Volume fraction] 42.5 % Normal 39.0-51.0 [facility] Comment on above: Performed By: #### C RAFAEL, BMP ####[facility] Lkafpjifbi0355 [place] [address] Hemoglobin (Bld) [Mass/Vol] 13.6 g/dL Normal 13.0-17.0 [facility] Comment on above: Performed By: #### C RAFAEL, BMP ####[facility] Fanvbyoaqg6180 [place] [address] MCH (RBC) [Entitic mass] 29.6 pG Normal 26.0-34.0 [facility] Comment on above: Performed By: #### C RAFAEL, BMP ####[facility] [address] [place] [address] MCHC (RBC) [Mass/Vol] 32.0 g/dL Normal 30.5-36.0 [facility] Comment on above: Performed By: #### Beatriz HALL, BMP ####[facility] Hnmukncthx2072 [place] [address] MCV (RBC) [Entitic vol] 92.6 fL Normal 80.0-100.0 [facility] Comment on above: Performed By: #### Beatriz HALL, BMP ####[facility] Tpsvsvqejx7731 [place] [phone] Platelet mean volume (Bld) [Entitic vol] 9.5 fL Normal 9.0-12.7 [facility] Comment on above: Performed By: #### Beatriz HALL, BMP ####[facility] Ftivfcqoqi5449 [address]5160 Platelets (Bld) [#/Vol] 405 10*3/uL High 150-400 [facility] Comment on above: Performed By: #### Beatriz HALL, BMP ####[facility] Pkwzpeyfvm4832 [address]5160 RBC (Bld) [#/Vol] 4.59 10*6/uL Normal 4.20-6.00 [facility] Comment on above: Performed By: #### Beatriz HALL, BMP ####[facility] Upqrgvhjkx2368 [place] [address] WBC (Bld) [#/Vol] 11.05 10*3/uL High 3.70-11.00 [facility] Comment on above: Performed By: ###Olamide HALL, BMP ####[facility] Wyudmxqrsk3333 [place] [address] CONSULTon 02-01-2019 CONSULT HNO ID: [id number] Author: Magy Orosco Service: Gastroenterology Author Type: [...] COPD, hypothyroidism, GERD who was admitted to [facility] 01/22/19 with acute respiratory failure with hypercapnea. [...] Cooperative. NAD EYES: No scleral icterus SKIN: Gholson in color. No jaundice LUNGS: Scattered rhonchi [...] COLONOSCOPY Patient reports many years ago at [place] - further details unknown ASSESSMENT 1- Esophageal [...] 01, 2019 TIME: 9:16 AM [facility] NURSING PROGon 02-01-2019 NURSING PROG HNO ID: [id number] Author: Zac Lowe) JAZZY Lyles Service: Nursing Author Type: Registered Nurse Type: Nursing Progress Note Filed: 02/01/2019 1:58 PM Note Text: Nursing Progress Note Patient Name: Jorge Covington Patient Location: [place] [address]/[facility] - Daily Note: Pt awake, a/ox2, [...] completed by: Zac Lyles RN [facility] NUTRITIONon 02-01-2019 NUTRITION HNO ID: [id number] Author: Yue aMrquez Service: Nutrition Therapy Author Type: Registered Dietitian [...] 01, 2019 TIME: 9:35 AM [facility] PROGRESSon 02-01-2019 PROGRESS HNO ID: [id number] Author: Shirley Romo Service: ? Author Type: [...] HOURS 01/22/192228 -- 01/22/192229 pneumatic compression stockings (id,me) 01/22/191814 vte non-pharmacologic prophylaxis - none indicated (id,me) 01/22/191814 activity - mobilize patient (id,me) VTE Prophylaxis: VTE prophylaxis appropriate SIGNATURE: Shirley Romo DO PATIENT NAME: Jorge Covington DATE: February 01, 2019 TIME: 11:44 AM PAGER/CONTACT #: [phone] [facility] SURGICAL PATHOLOGYon 019 SURGICAL PATHOLOGY Specimen originated from [facility] Specimen #: [id number] Submitting Physician: MAGY OROSCO M.D. FINAL DIAGNOSIS [...] in one cassette. Gross examination performed at [facility], [address] [place] [address] 02/01/2019 5:08:12 PM Date of Report: 02/02/2019 Date of Procedure: 02/01/2019 Date of Receipt: 02/01/2019 Submitted by: MAGY OROSCO M.D. Location: [address] [place] [address] Diagnostic interpretation performed at [place] [address]. CLIA Number: [id number] [facility] THERAPY NTon 02-01-2019 THERAPY NT HNO ID: [id number] Author: Brook (Ratings Analyst) Jama Marie CCC/SEAFOOD TECHNOLOGY SPECIALIST Service: Speech/Swallow Author Type: Speech Language Pathologist Type: Therapy (PT/OT/Speech/Resp) Filed: 02/01/2019 8:39 AM Note Text: Speech Therapy Clinical Swallow Evaluation SERVICE DATE: 02/01/2019 SERVICE TIME: 749 ROOM: [id number] Nursing Recommendations: Reinforce use of swallowing strategies [...] the turkey sandwich -while at bedside this SEAFOOD TECHNOLOGY SPECIALIST noted significant / reoccurring episodes of burping, [...] Esophageal Dysphagia) Interventions Provided: Clinical Swallow Evaluation (16111) $ Clinical Swallow Evaluation (35949) Billed Units: 1 unit Clinical Swallowing assessment [...] for this therapy evaluation/treatment. SIGNATURE: Brook Marie [facility]-SEAFOOD TECHNOLOGY SPECIALIST PATIENT NAME: Jorge Covington DATE: February 01, 2019 TIME: 8:34 AM Normal [facility] XR CHEST 2V FRONTAL/LATon XR CHEST [...] Bibasilar pleural effusions, underlying processes not excluded. Rug Measurer: ALDO Transcribe Date/Time: Feb 01 2019 12:29P Dictated by : JANELLE THOMAS MD This examination was interpreted and the report reviewed and electronically signed by: JANELLE THOMAS MD on Feb 01 2019 12:30PM EST [id number] Normal [facility] Basic Metabolic Panlon 01-31 Anion gap [Moles/Vol] 10 mmol/L Normal 9-18 [facility] Comment on above: Performed By: #### C BC, BMP ####[facility] [address] [place], [place] [phone] Calcium [Mass/Vol] 9.4 mg/dL Normal 8.5-10.2 [facility] Comment on above: Performed By: #### C BC, BMP ####[facility] Vinxxorkwp7407 [place] [address] Chloride [Moles/Vol] 103 mmol/L Normal 97-105 [facility] Comment on above: Performed By: #### C BC, BMP ####[facility] Vudlrudsrn5913 [place] [address] CO2 [Moles/Vol] 25 mmol/L Normal 22-30 [facility] Comment on above: Performed By: #### C RAFAEL, BMP ####[facility] Sojvmtzcze2046 [place] [address] Creatinine [Mass/Vol] 0.77 mg/dL Normal 0.73-1.22 [facility] Comment on above: Performed By: #### C RAFAEL, BMP ####[facility] Atxhjfxfie6095 [place] [address] eGFR- Amer. >60 Normal [facility] Comment on above: Performed By: #### C RAFAEL, BMP ####[facility] Fwdfevglxf0633 [place] [address] GFR/1.73 sq M predicted among non-blacks MDRD (S/P/Bld) [Vol rate/Area] mL/min/{1.73_m2} Normal [facility] Comment on above: Result Comment: eGFR [...] Performed By: #### C BC, BMP ####[facility] Qpbsipygue2840 [place] [address] Glucose [Mass/Vol] 114 mg/dL High 74-99 [facility] Comment on above: Result Comment: The [place] Diabetes Association (ADA) provides guidance for cutoff [...] Standards of Medical Care in Diabetes 2016, [place] [employer]. Diabetes Care. 2016.39(Suppl 1). Performed By: #### C BC, BMP ####[facility] Bxlfyfyenv5401 [place] [address] Potassium [Moles/Vol] 4.6 mmol/L Normal 3.7-5.1 [facility] Comment on above: Performed By: #### C , BMP ####[facility] [address] [place] [address] Sodium [Moles/Vol] 138 mmol/L Normal 136-144 [facility] Comment on above: Performed By: #### C , BMP ####[facility] Lhlpvkfhjd0054 [place] [address] Urea nitrogen [Mass/Vol] 24 mg/dL Normal 9-24 [facility] Comment on above: Performed By: #### C , BMP ####[facility] [address] [place] [address] CASE MANAGEMon 01-31-2019 CASE MANAGEM HNO ID: [id number] Author: Florence (Rn) JAZZY Mullins Service: Care Management Author Type: Registered Nurse Type: Care Mgt Progress Note Filed: 01/31/2019 3:04 PM Note Text: CARE MANAGEMENT PROGRESS NOTE SERVICE DATE: 01/31/2019 SERVICE TIME: 2:59 PM LOS: 9 days Needs Prior to Discharge: Precertification;Disc harge Transportation CM met with patient at bedside and received call from Dasia regarding discharge. Awaiting precert for admission to [facility]. wanted to change SNF location to [facility] she called them and they told her they had a bed. Received call from [facility], unfortunately was transferred to acute rehab area which does have a bed, SNF does not. Patient does not meet criteria for their acute rehab. SNF will not have a bed open until Thursday. Discussed with Dasia this updated information from [facility]. Discussed with her sending pt to [facility] after we get precert, then having them transfer him to [facility] when their bed opens. reluctant to agree, doesn't think the facility will do that. Has had bad experience with another facility in the past. is calling her insurance company and will call back SIGNATURE: Florence Mullins RN PATIENT NAME: [place] Coving[place] DATE: January 31, 2019 TIME: 2:59 PM PAGER/CONTACT #: [phone] Normal [facility] CBCon 01-31-2019 Erythrocyte distribution width (RBC) [Ratio] 17.6 % High 11.5-15.0 [facility] Comment on above: Performed By: #### C , BMP ####[facility] Meaiuquyxv7630 [place] [address] Hematocrit (Bld) [Volume fraction] 41.3 % Normal 39.0-51.0 [facility] Comment on above: Performed By: #### C , BMP ####[facility] Fygtryybbi1546 [place] [address] Hemoglobin (Bld) [Mass/Vol] 13.1 g/dL Normal 13.0-17.0 [facility] Comment on above: Performed By: #### C BC, BMP ####[facility] Bggffsefng9013 [place] [address] MCH (RBC) [Entitic mass] 29.6 pG Normal 26.0-34.0 [facility] Comment on above: Performed By: #### C BC, BMP ####[facility] Sdoqyhwyeg6126 [place] [address] MCHC (RBC) [Mass/Vol] 31.7 g/dL Normal 30.5-36.0 [facility] Comment on above: Performed By: #### C BC, BMP ####[facility] Nlqiiquiap5657 [address]5[address] MCV (RBC) [Entitic vol] 93.4 fL Normal 80.0-100.0 [facility] Comment on above: Performed By: #### C BC, BMP ####[facility] Mpimtfddji8574 [place] [address] Platelet mean volume (Bld) [Entitic vol] 9.3 fL Normal 9.0-12.7 [facility] Comment on above: Performed By: #### C RAFAEL, BMP ####[facility] Grvqmzygab4752 [place] [address] Platelets (Bld) [#/Vol] 374 10*3/uL Normal 150-400 [facility] Comment on above: Performed By: #### C RAFAEL, BMP ####[facility] Avyyp[address]ioz[address]1 [place] [address] RBC (Bld) [#/Vol] 4.42 10*6/uL Normal 4.20-6.00 [facility] Comment on above: Performed By: #### C RAFAEL, BMP ####[facility] [address] [place], [place] [phone] WBC (Bld) [#/Vol] 9.46 10*3/uL Normal 3.70-11.00 [facility] Comment on above: Performed By: #### C RAFAEL, BMP ####[facility] [address] [place], [place] [phone] PROGRESSon 01-31-2019 PROGRESS HNO ID: [id number] Author: Everton Gomes (Lawrence) Bam Service: General Internal Medicine Author Type: Nurse Practitioner Type: Progress Notes Filed: 01/31/2019 8:21 PM Note Text: INCIDENTAL PROGRESS NOTE Name: Jorge Covington SERVICE DATE: 01/31/2019 SERVICE TIME: 2010 ATTENDING: Dr. Shirley Romo Subjective INTERVAL HPI: Patient admitted for COPD exacerbation on 01/22. Today nursing calls EMERGENCY RESPONSE TECHNICIAN with complaints of patient choking on a turkey sandwich. EMERGENCY RESPONSE TECHNICIAN at bedside to see patient and his [...] -States choking and coughing up a turkey [facility] -Make patient NPO -ST consult 2. GERD -Hx of GERD -States increased symptoms -Also has noted #1 -Change PPI to BID IV -Increase HOB -Await ST consult Everton Kuhn APRN.LAWRENCE SIGNATURE: Everton Kuhn APRN.CNP PATIENT NAME: Jorge Covington DATE: January 31, 2019 TIME: 8:11 PM PAGER: [phone] [facility] THERAPY NTon 01-31-2019 THERAPY NT HNO ID: [id number] Author: Drea (Ot/L) Patrica Service: Occupational Therapy Author Type: Occupational Therapist Type: Therapy (PT/OT/Speech/Resp) Filed: 01/31/2019 1:20 PM Note Text: Occupational Therapy Treatment SERVICE DATE: 01/31/2019 SERVICE TIME: 1248 to 1300 ROOM: [place] [address] Recommended Discharge Disposition: Subacute/SNF Recommended Discharge Disposition [...] Cognitive Functions and Awareness Interventions Provided: Self Longterm Management (83045) Self Longterm Management (36121) Treatment Minutes: 12 1 unit Skilled Intervention(s): [...] Care;Shopping;Transpo rtation;Wheelchair Mobility Prior Functional Level Comments: 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 w/c/bed bound, pt is [...] Activity Tolerance (in minutes): 8(sitting EOB with SUPPLIER QUALITY MANAGER earlier ) Please see discipline specific clinical documentation flowsheet for complete details for this therapy evaluation/treatment. SIGNATURE: Drea Burciaga OT/Eliseo PATIENT NAME: Jorge Covington DATE: January 31, 2019 TIME: 1:13 PM [facility] THERAPY NT HNO ID: [id number] Author: Melvi Ledezma Service: Physical Therapy Author Type: Continuity Reader Type: Therapy (PT/OT/Speech/Resp) Filed: 02/02/2019 7:17 AM Note Text: Attestation signed by Philip Mccoy at 02/03/2019 7:17 AM I reviewed and agree with the documentation corresponding to this therapy visit. SIGNATURE: Philip Mccoy PT DATE: February 03, 2019 TIME: 7:17 AM Physical Therapy Treatment SERVICE DATE: 01/31/2019 SERVICE TIME: 1235 to 1250 ROOM: [id number] Recommended Discharge Disposition: Subacute/SNF Recommended Discharge Disposition [...] Diagnosis: Reduced mobility-other Interventions Provided: Therapeutic Exercise (13823);Therapeutic Activity (88690) Therapeutic Exercise (58416) Treatment Minutes: 10 1 unit Skilled Intervention(s): [...] frequent performance of anti-embolic exercises Therapeutic Activity (74037) Treatment Minutes: 3 0 units Skilled Intervention(s): [...] Care;Shopping;Transpo rtation;Wheelchair Mobility Prior Functional Level Comments: 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 w/c/bed bound, pt is [...] 31, 2019 TIME: 12:59 PM Normal [facility] Basic Metabolic Panlon 01-30 Anion gap [Moles/Vol] 12 mmol/L Normal 9-18 [facility] Comment on above: Performed By: #### C RAFAEL, BMP ####[facility] [address] [place], [place] [phone] Calcium [Mass/Vol] 9.5 mg/dL Normal 8.5-10.2 [facility] Comment on above: Performed By: #### C BC, BMP ####[facility] [address] [place] [address] Chloride [Moles/Vol] 100 mmol/L Normal 97-105 [facility] Comment on above: Performed By: #### C BC, BMP ####[facility] Z[address]yfeq0166 [place] [address]360 CO2 [Moles/Vol] 26 mmol/L Normal 22-30 [facility] Comment on above: Performed By: #### C BC, BMP ####[facility] Xxz[address]hrh9048 [place] [address] Creatinine [Mass/Vol] 0.79 mg/dL Normal 0.73-1.22 [facility] Comment on above: Performed By: #### C BC, BMP ####[facility] F[address]atw[address]30 [place] [address] eGFR- Amer. >60 Normal [facility] Comment on above: Performed By: #### C BC, BMP ####[facility] [address] [place] [address] GFR/1.73 sq M predicted among non-blacks MDRD (S/P/Bld) [Vol rate/Area] mL/min/{1.73_m2} Normal [facility] Comment on above: Result Comment: eGFR [...] Performed By: #### C , BMP ####[facility] B[address]ulk26[address] [place] [address] Glucose [Mass/Vol] 108 mg/dL High 74-99 [facility] Comment on above: Result Comment: The [place] Diabetes [employer] (ADA) provides guidance for cutoff [...] Standards of Medical Care in Diabetes 2016, [place] [employer]. Diabetes Care. 2016.39(Suppl 1). Performed By: #### C RAFAEL, BMP ####[place] [address] Potassium [Moles/Vol] 4.4 mmol/L Normal 3.7-5.1 [facility] Comment on above: Performed By: #### C RAFAEL, BMP ####[place] [address] Sodium [Moles/Vol] 138 mmol/L Normal 136-144 [facility] Comment on above: Performed By: #### C RAFAEL, BMP ####[place] [address] Urea nitrogen [Mass/Vol] 24 mg/dL Normal 9-24 [facility] Comment on above: Performed By: #### C RAFAEL, BMP ####[place] [address] CBCon 01-30-2019 Erythrocyte distribution width (RBC) [Ratio] 17.8 % High 11.5-15.0 [facility] Comment on above: Performed By: #### C RAFAEL, BMP ####[place] [address] Hematocrit (Bld) [Volume fraction] 40.4 % Normal 39.0-51.0 [facility] Comment on above: Performed By: #### C BC, BMP ####[place] [address] Hemoglobin (Bld) [Mass/Vol] 12.9 g/dL Low 13.0-17.0 [facility] Comment on above: Performed By: #### C BC, BMP ####[place] [address] MCH (RBC) [Entitic mass] 29.8 pG Normal 26.0-34.0 [facility] Comment on above: Performed By: #### Beatriz HALL, BMP ####[facility] Osqkakemyj3423 [phone] MCHC (RBC) [Mass/Vol] 31.9 g/dL Normal 30.5-36.0 [facility] Comment on above: Performed By: #### Beatriz HALL, BMP ####[facility] Bnmlmxrlno6016 [phone] MCV (RBC) [Entitic vol] 93.3 fL Normal 80.0-100.0 [facility] Comment on above: Performed By: #### Beatriz HALL, BMP ####[facility] Mrtxokugcp6301 [phone] Platelet mean volume (Bld) [Entitic vol] 9.7 fL Normal 9.0-12.7 [facility] Comment on above: Performed By: #### Beatriz HALL, BMP ####[facility] Kjhnyarpey3605 [phone] Platelets (Bld) [#/Vol] 375 10*3/uL Normal 150-400 [facility] Comment on above: Performed By: #### Beatriz HALL, BMP ####[facility] Nernqxaoyn5477 [phone] RBC (Bld) [#/Vol] 4.33 10*6/uL Normal 4.20-6.00 [facility] Comment on above: Performed By: #### Beatriz HALL, BMP ####[facility] Gkasoyazar4536 [phone] WBC (Bld) [#/Vol] 8.69 10*3/uL Normal 3.70-11.00 [facility] Comment on above: Performed By: #### Beatriz HALL, BMP ####[facility] Xlihqhldou7309 [phone] NURSING PROGon 01-30-2019 NURSING PROG HNO ID: [id number] Author: Zac (Rn) Rafal RN Service: Nursing Author Type: Registered Nurse Type: Nursing Progress Note Filed: 01/30/2019 8:53 AM Note Text: Nursing Progress Note Patient Name: Jorge Covington Patient Location: [place] [address]6734/[place] [address] -1 Daily Note: Pt laying in bed, a/ox3, lungs cta slightly diminished in bases, on RA, denies sob, cough, cp. abd large but nontender +bsx4, no edema. Denies pain at this time. SR 71 on tele. This note was completed by: Zac Lyles RN [facility] PROGRESSon 01-30-2019 PROGRESS HNO ID: [id number] Author: Shirley Romo Service: ? Author Type: [...] HOURS 01/22/192228 -- 01/22/192229 pneumatic compression stockings (id,me) 01/22/191814 vte non-pharmacologic prophylaxis - none indicated (id,me) 01/22/191814 activity - mobilize patient (id,me) VTE Prophylaxis: VTE prophylaxis appropriate SIGNATURE: Shirley Romo DO PATIENT NAME: Jorge Covington DATE: January 30, 2019 TIME: 9:14 AM PAGER/CONTACT #: [phone] Normal [facility] Basic Metabolic Panlon 01-29 Anion gap [Moles/Vol] 9 mmol/L Normal - [facility] Comment on above: Performed By: #### C RAFAEL BMP ####[facility] [address]5078 [place] [phone] Calcium [Mass/Vol] 9.7 mg/dL Normal 8.5-10.2 [facility] Comment on above: Performed By: #### C RAFAEL, BMP ####[facility] Ehgoqusqmo3033 [place] [phone] Chloride [Moles/Vol] 97 mmol/L Normal 97-105 [facility] Comment on above: Performed By: #### C BC, BMP ####[facility] S[address]xt[address]ipk4795 [place] [address] CO2 [Moles/Vol] 30 mmol/L Normal 22-30 [facility] Comment on above: Performed By: #### C BC, BMP ####[facility] Wpindiypwd6885 [place] [address] Creatinine [Mass/Vol] 0.86 mg/dL Normal 0.73-1.22 [facility] Comment on above: Performed By: #### C RAFAEL, BMP ####[facility] Fhbcrifnmo3297 [place] [address] eGFR- Amer. >60 Normal [facility] Comment on above: Performed By: #### C BC, BMP ####[facility] R[address]zngfk4649 [place] [address] GFR/1.73 sq M predicted among non-blacks MDRD (S/P/Bld) [Vol rate/Area] mL/min/{1.73_m2} Normal [facility] Comment on above: Result Comment: eGFR [...] Performed By: #### C BC, BMP ####[facility] Wsvkiwrjei7755 [place] [address] Glucose [Mass/Vol] 103 mg/dL High 74-99 [facility] Comment on above: Result Comment: The [place] Diabetes [employer] (ADA) provides guidance for cutoff [...] Standards of Medical Care in Diabetes 2016, [place] [employer]. Diabetes Care. 2016.39(Suppl 1). Performed By: #### C BC, BMP ####[facility] [address] [place] [address] Potassium [Moles/Vol] 4.5 mmol/L Normal 3.7-5.1 [facility] Comment on above: Performed By: #### C BC, BMP ####[place] [address] Sodium [Moles/Vol] 136 mmol/L Normal 136-144 [facility] Comment on above: Performed By: #### C RAFAEL, BMP ####[place] [address] Urea nitrogen [Mass/Vol] 20 mg/dL Normal 9-24 [facility] Comment on above: Performed By: #### C RAFAEL, BMP ####[facility] [address] [place] [address] CBCon 01-29-2019 Erythrocyte distribution width (RBC) [Ratio] 18.0 % High 11.5-15.0 [facility] Comment on above: Performed By: #### C RAFAEL, BMP ####[place] [address] Hematocrit (Bld) [Volume fraction] 40.0 % Normal 39.0-51.0 [facility] Comment on above: Performed By: #### C BC, BMP ####[place] [address] Hemoglobin (Bld) [Mass/Vol] 12.6 g/dL Low 13.0-17.0 [facility] Comment on above: Performed By: #### C BC, BMP ####[place] [address] MCH (RBC) [Entitic mass] 29.7 pG Normal 26.0-34.0 [facility] Comment on above: Performed By: #### C BC, BMP ####[facility] Aeqf[address]t0264 [place] [phone] MCHC (RBC) [Mass/Vol] 31.5 g/dL Normal 30.5-36.0 [facility] Comment on above: Performed By: #### Beatriz HALL, BMP ####[facility] V[address]xt[address]nsxh9369 [place] [phone] MCV (RBC) [Entitic vol] 94.3 fL Normal 80.0-100.0 [facility] Comment on above: Performed By: #### Beatriz HALL, BMP ####[facility] Hinlmqfagw8479 [place] [phone] Platelet mean volume (Bld) [Entitic vol] 9.4 fL Normal 9.0-12.7 [facility] Comment on above: Performed By: #### Beatriz HALL, BMP ####[facility] Udojmceuam7326 [place] [phone] Platelets (Bld) [#/Vol] 363 10*3/uL Normal 150-400 [facility] Comment on above: Performed By: #### Beatriz HALL, BMP ####[facility] Sckbqymeka3443 [place] [phone] RBC (Bld) [#/Vol] 4.24 10*6/uL Normal 4.20-6.00 [facility] Comment on above: Performed By: #### Beatriz HALL, BMP ####[facility] Ptudtmxtfs4281 [place] [phone] WBC (Bld) [#/Vol] 7.41 10*3/uL Normal 3.70-11.00 [facility] Comment on above: Performed By: #### Beatriz HALL, BMP ####[facility] Ebfiqineuf0402 [place] [phone] NURSING PROGon 01-29-2019 NURSING PROG HNO ID: [id number] Author: Zac (Rn) Rafal, RN Service: Nursing Author Type: Registered Nurse Type: Nursing Progress Note Filed: 01/29/2019 8:03 AM Note Text: Nursing Progress Note Patient Name: Jogre Covington Patient Location: [facility]-0264 -1 Daily Note: Pt is a/ox2, lungs cta, denies sob, cp.was on 2L at 99% states does NOT use at home, took off pt is 95% will continue to monitor. abd large nontender, This note was completed by: Zac Lyles RN [facility] PROGRESSon 01-29-2019 PROGRESS HNO ID: [id number] Author: Shirley Romo Service: ? Author Type: [...] 01/22/199 -- 01/22/19 223 pneumatic compression stockings (id,me) 01/22/19 181 vte non-pharmacologic prophylaxis - none indicated (id,me) 01/22/191814 activity - mobilize patient ([place]) VTE Prophylaxis: VTE prophylaxis appropriate SIGNATURE: Shirley Romo DO PATIENT NAME: Jorge Covington DATE: January 29, 2019 TIME: 11:31 AM PAGER/CONTACT #: [phone] Normal [facility] Basic Metabolic Panlon 01-28 Anion gap [Moles/Vol] 11 mmol/L Normal 9-18 [facility] Comment on above: Performed By: #### C RAFAEL, BMP ####[facility] Tqsuimknby5733 [place] [phone] Calcium [Mass/Vol] 9.8 mg/dL Normal 8.5-10.2 [facility] Comment on above: Performed By: #### C BC, BMP ####[facility] Crsrgdlhkd1354 [place] [phone] Chloride [Moles/Vol] 104 mmol/L Normal 97-105 [facility] Comment on above: Performed By: #### C BC, BMP ####[facility] Qaduxvrkel5990 [place] [address] CO2 [Moles/Vol] 27 mmol/L Normal 22-30 [facility] Comment on above: Performed By: #### C RAFAEL, BMP ####[facility] Thpyqdfxsk6294 [place] [address] Creatinine [Mass/Vol] 0.74 mg/dL Normal 0.73-1.22 [facility] Comment on above: Performed By: #### C RAFAEL, BMP ####[facility] Oxleuqypks6497 [place] [address] eGFR- Amer. >60 Normal [facility] Comment on above: Performed By: #### C RAFAEL, BMP ####[facility] Urayqquhjy1818 [place] [address] GFR/1.73 sq M predicted among non-blacks MDRD (S/P/Bld) [Vol rate/Area] mL/min/{1.73_m2} Normal [facility] Comment on above: Result Comment: eGFR [...] Performed By: #### C BC, BMP ####[facility] Dvevhcoyvy4105 [address]5160 Glucose [Mass/Vol] 151 mg/dL High 74-99 [facility] Comment on above: Result Comment: The [place] Diabetes Association (ADA) provides guidance for cutoff [...] Standards of Medical Care in Diabetes 2016, [place] [employer]. Diabetes Care. 2016.39(Suppl 1). Performed By: #### C BC, BMP ####[facility] Dhaibmcgql6698 [address]5160 Potassium [Moles/Vol] 4.4 mmol/L Normal 3.7-5.1 [facility] Comment on above: Performed By: #### C BC, BMP ####[facility] Ybhjjhrfev3494 [place] [address] Sodium [Moles/Vol] 142 mmol/L Normal 136-144 [facility] Comment on above: Performed By: #### C BC, BMP ####[facility] Yjtoduanta9832 [address]5160 Urea nitrogen [Mass/Vol] 16 mg/dL Normal 9-24 [facility] Comment on above: Performed By: #### C BC, BMP ####[facility] Uuakoevxld6860 [address]5160 CASE MANAGEMon 01-28-2019 CASE MANAGEM HNO ID: [id number] Author: Florence (Rn) JAZZY Mullins Service: Care Management Author Type: Registered Nurse Type: Care Mgt Progress Note Filed: 01/28/2019 12:53 PM Note Text: CARE MANAGEMENT PROGRESS NOTE SERVICE DATE: 01/28/2019 SERVICE TIME: 12:49 PM LOS: 6 days Needs Prior to Discharge: Precertification;Disc harge Transportation Call placed to patients Dasia to discuss discharge plan. Their first choice facility [facility] is able to accept. Facility has started [...] 28, 2019 TIME: 12:49 PM PAGER/CONTACT #: [phone] Normal [facility] CBCon 01-28-2019 Erythrocyte distribution width (RBC) [Ratio] 18.1 % High 11.5-15.0 [facility] Comment on above: Performed By: #### C BC, BMP ####[facility] Zaijgrbxgv2343 [place] [address] Hematocrit (Bld) [Volume fraction] 38.0 % Low 39.0-51.0 [facility] Comment on above: Performed By: #### C RAFAEL, BMP ####[facility] [address] [place], [place] [phone] Hemoglobin (Bld) [Mass/Vol] 12.1 g/dL Low 13.0-17.0 [facility] Comment on above: Performed By: #### C RAFAEL, BMP ####[facility] [address] [place], [place] [phone] MCH (RBC) [Entitic mass] 30.1 pG Normal 26.0-34.0 [facility] Comment on above: Performed By: #### C RAFAEL, BMP ####[facility] Hbzzxqlanz3313 [place] [address] MCHC (RBC) [Mass/Vol] 31.8 g/dL Normal 30.5-36.0 [facility] Comment on above: Performed By: #### C RAFAEL, BMP ####[facility] Yepdginylh4352 [place] [address] MCV (RBC) [Entitic vol] 94.5 fL Normal 80.0-100.0 [facility] Comment on above: Performed By: #### C BC, BMP ####[facility] Hcxjctrxfm8971 [place] [address] Platelet mean volume (Bld) [Entitic vol] 9.8 fL Normal 9.0-12.7 [facility] Comment on above: Performed By: #### C BC, BMP ####[facility] Pyfbioipcb7359 [address]5160 Platelets (Bld) [#/Vol] 349 10*3/uL Normal 150-400 [facility] Comment on above: Performed By: #### C RAFAEL, BMP ####[facility] Jdnhjzufpj2162 [place] [phone] RBC (Bld) [#/Vol] 4.02 10*6/uL Low 4.20-6.00 [facility] Comment on above: Performed By: #### Beatriz HALL, BMP ####[facility] Xuabsfeclh9813 [place] [phone] WBC (Bld) [#/Vol] 8.04 10*3/uL Normal 3.70-11.00 [facility] Comment on above: Performed By: #### Beatriz HALL, BMP ####[facility] Ckqdzfkchj2512 [place] [phone] THERAPY NTon 01-28-2019 THERAPY NT HNO ID: [id number] Author: Melvi Ledezma Service: Physical Therapy Author Type: Continuity Reader Type: Therapy (PT/OT/Speech/Resp) Filed: 01/28/2019 2:55 PM Note Text: Attestation signed by Faith Carrillo at 01/31/2019 8:38 AM I reviewed and agree with the assessment as documented above. 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 w/c/bed bound, pt is [...] 28, 2019 TIME: 2:53 PM [facility] THERAPY NT HNO ID: [id number] Author: Krystal Vasquez/Krysten Harrington Service: Occupational Therapy Author Type: Occupational Therapist Type: Therapy (PT/OT/Speech/Resp) Filed: 01/28/2019 2:32 PM Note Text: Occupational Therapy Treatment SERVICE DATE: 01/28/2019 SERVICE TIME: 1317 to 1343 ROOM: [id number] Recommended Discharge Disposition: Subacute/SNF Recommended Discharge Disposition [...] Functions and Awareness Interventions Provided: Therapeutic Activity (32086);Self Longterm Management (39786) Therapeutic Activity (91719) Treatment Minutes: 15 1 unit Skilled Intervention(s): [...] to supine with log roll technique. Self Longterm Management (77532) Treatment Minutes: 9 1 unit Skilled Intervention(s): [...] POC and discharge recommendation with rationale. 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 Patient not seen due to Eating. Will re-attempt as schedule allows. SIGNATURE: PORTILLO Hood PATIENT NAME: Jorge Covington DATE: January 28, 2019 TIME: 1:09 PM [facility] Basic Metabolic Panlon 01-27 Anion gap [Moles/Vol] 10 mmol/L Normal 9-18 [facility] Comment on above: Performed By: #### Beatriz HALL BMP ####[facility] [address] [place] [address]#### FREET3 ####[facility] [place], [place] [phone] Calcium [Mass/Vol] 9.3 mg/dL Normal 8.5-10.2 [facility] Comment on above: Performed By: #### Beatriz HALL BMP ####[facility] [address] [place] [address]#### FREET3 ####[facility] [place] [phone] Chloride [Moles/Vol] 106 mmol/L High 97-105 [facility] Comment on above: Performed By: #### Beatriz HALL BMP ####[facility] [address] [place] [address]#### FREET3 ####[facility] Kbmkjfuodwzp7666 [phone] CO2 [Moles/Vol] 27 mmol/L Normal 22-30 [facility] Comment on above: Performed By: #### Beatriz HALL, BMP ####[facility] [address] [place] [address]#### FREET3 ####[place] [phone] Creatinine [Mass/Vol] 0.79 mg/dL Normal 0.73-1.22 [facility] Comment on above: Performed By: #### Beatriz HALL, BMP ####[place] [address]#### FREET3 ####[phone] eGFR- Amer. >60 Normal [facility] Comment on above: Performed By: #### Beatriz HALL, BMP ####[place] [address]#### FREET3 ####[place] [phone] GFR/1.73 sq M predicted among non-blacks MDRD (S/P/Bld) [Vol rate/Area] mL/min/{1.73_m2} Normal [facility] Comment on above: Result Comment: eGFR [...] GFR. Performed By: #### Beatriz HALL, BMP ####[place] [address]#### FREET3 ####[place] [address] [phone] Glucose [Mass/Vol] 110 mg/dL High 74-99 [facility] Comment on above: Result Comment: The [place] [employer] (ADA) provides guidance for cutoff [...] Standards of Medical Care in Diabetes 2016, [place] [employer]. Diabetes Care. 2016.39(Suppl 1). Performed By: #### Beatriz HALL BMP ####[place] [address]#### FREET3 ####[place] [phone] Potassium [Moles/Vol] 4.1 mmol/L Normal 3.7-5.1 [facility] Comment on above: Performed By: #### Beatriz HALL BMP ####[place] [address]#### FREET3 ####[phone] Sodium [Moles/Vol] 143 mmol/L Normal 136-144 [facility] Comment on above: Performed By: #### Beatriz HALL BMP ####[facility] [address] [place] [address]#### FREET3 ####[phone] Urea nitrogen [Mass/Vol] 11 mg/dL Normal 9-24 [facility] Comment on above: Performed By: #### Beatriz HALL BMP ####[place] [address]#### FREET3 ####[place] [phone] CBCon 01-27-2019 Erythrocyte distribution width (RBC) [Ratio] 18.2 % High 11.5-15.0 [facility] Comment on above: Performed By: #### C BC, BMP ####[place] [address]#### FREET3 ####[place] [phone] Hematocrit (Bld) [Volume fraction] 36.3 % Low 39.0-51.0 [facility] Comment on above: Performed By: #### C RAFAEL, BMP ####[place] [address]#### FREET3 ####[place] [phone] Hemoglobin (Bld) [Mass/Vol] 11.3 g/dL Low 13.0-17.0 [facility] Comment on above: Performed By: #### C RAFAEL, BMP ####[place] [address]#### FREET3 ####[place] [phone] MCH (RBC) [Entitic mass] 29.5 pG Normal 26.0-34.0 [facility] Comment on above: Performed By: #### C RAFAEL, BMP ####[place] [address]#### FREET3 ####[place] [phone] MCHC (RBC) [Mass/Vol] 31.1 g/dL Normal 30.5-36.0 [facility] Comment on above: Performed By: #### C BC, BMP ####[place] [address]#### FREET3 ####[place] [phone] MCV (RBC) [Entitic vol] 94.8 fL Normal 80.0-100.0 [facility] Comment on above: Performed By: #### Beatriz HALL, BMP ####[place] [address]#### FREET3 ####[place] [address] [address], [place] [phone] Platelet mean volume (Bld) [Entitic vol] 9.8 fL Normal 9.0-12.7 [facility] Comment on above: Performed By: #### Beatriz HALL, BMP ####[place] [address]#### FREET3 ####[place] [address] [address] [place] [phone] Platelets (Bld) [#/Vol] 308 10*3/uL Normal 150-400 [facility] Comment on above: Performed By: #### Beatriz HALL, BMP ####[place] [address]#### FREET3 ####[place] [address] [address] [place] [phone] RBC (Bld) [#/Vol] 3.83 10*6/uL Low 4.20-6.00 [facility] Comment on above: Performed By: #### Beatriz HALL, BMP ####[place] [address]#### FREET3 ####[place] [address] [address] [place] [phone] WBC (Bld) [#/Vol] 8.30 10*3/uL Normal 3.70-11.00 [facility] Comment on above: Performed By: #### Beatriz HALL, BMP ####[place] [address]#### FREET3 ####[place] [address] [address], [place] [phone] CONSULT PROGon 10-31-2019 CONSULT PROG HNO ID: [id number] Author: Brian Lewis MD Service: Endocrinology Author [...] levels now measurable, improving. Brian Lewis MD [facility] Endocrinology and Metabolism Gurley [facility] January 27, 2019 11:17 AM Normal [facility] Free T3on 01-27-2019 Free T3 [Mass/Vol] 1.4 pg/mL Low 2.3-4.1 [facility] Comment on above: Performed By: #### C BC, BMP ####[facility] [address] [place] [phone]#### FREET3 ####[facility] [place], [place] [phone] Free T4on 01-27-2019 Free T4 [Mass/Vol] 1.3 ng/dL Normal 0.9-1.7 [facility] Comment on above: Performed By: #### F T4 ####[place] [address] [place], [place] [phone] NUTRITIONon 01-27-2019 NUTRITION HNO ID: [id number] Author: Yue Marquez Service: Nutrition Therapy Author [...] 27, 2019 TIME: 5:01 PM [facility] PROGRESSon 01-27-2019 PROGRESS HNO ID: [id number] Author: Shirley Romo Service: ? Author Type: [...] HOURS 01/22/192228 -- 01/22/192229 pneumatic compression stockings (id,oh) 01/22/191814 vte non-pharmacologic prophylaxis - none indicated (id,oh) 01/22/191814 activity - mobilize patient (id,me) VTE Prophylaxis: VTE prophylaxis appropriate SIGNATURE: Shirley Romo DO PATIENT NAME: Jorge Covington DATE: January 27, 2019 TIME: 3:44 PM PAGER/CONTACT #: [phone] [facility] ALLIED HEALTHon 01-26-2019 ALLIED HEALTH HNO ID: [id number] Author: DAVID Sykes (Ct) Service: ? Author Type: Clinical Golf Caddie Type: Allied Health Filed: 01/26/2019 6:13 AM [...] January 26, 2019 6:13 AM [facility] Basic Metabolic Panlon 01-26 Anion gap [Moles/Vol] 11 mmol/L Normal 9-18 [facility] Comment on above: Performed By: #### T SH #### [facility] [address] [place] [address] Calcium [Mass/Vol] 9.4 mg/dL Normal 8.5-10.2 [facility] Comment on above: Performed By: #### T SH #### [facility] [address] [place] [address] Chloride [Moles/Vol] 109 mmol/L High 97-105 [facility] Comment on above: Performed By: #### T SH #### [facility] [address] [place] [address] CO2 [Moles/Vol] 27 mmol/L Normal 22-30 [facility] Comment on above: Performed By: #### T SH #### [facility] [address] [facility] [phone] Creatinine [Mass/Vol] 0.70 mg/dL Low 0.73-1.22 [facility] Comment on above: Performed By: #### T SH #### [facility] [address] [facility] [phone] eGFR- Amer. >60 Normal [facility] Comment on above: Performed By: #### T SH #### [facility] [address] [facility] [phone] GFR/1.73 sq M predicted among non-blacks MDRD (S/P/Bld) [Vol rate/Area] mL/min/{1.73_m2} Normal [facility] Comment on above: Result Comment: eGFR [...] Performed By: #### T SH #### [facility] [address] [facility] [phone] Glucose [Mass/Vol] 128 mg/dL High 74-99 [facility] Comment on above: Result Comment: The [place] [employer] (ADA) provides guidance for cutoff [...] Standards of Medical Care in Diabetes 2016, [place] [employer]. Diabetes Care. 2016.39(Suppl 1). Performed By: #### T SH #### [facility] [address] [facility] [phone] Potassium [Moles/Vol] 3.9 mmol/L Normal 3.7-5.1 [facility] Comment on above: Performed By: #### T SH #### [facility] [address] [facility] [phone] Sodium [Moles/Vol] 147 mmol/L High 136-144 [facility] Comment on above: Performed By: #### T SH #### [facility] [address] [facility] [phone] Urea nitrogen [Mass/Vol] 9 mg/dL Normal 9-24 [facility] Comment on above: Performed By: #### T SH #### [facility] [address] [facility] [phone] CASE MANAGEMon 01-26-2019 CASE MANAGEM HNO ID: [id number] Author: Kari De La RosaRn) JAZZY Toscano Service: ? Author Type: Registered Nurse Type: Care Mgt Progress Note Filed: 01/26/2019 12:10 PM Note Text: CARE MANAGEMENT PROGRESS NOTE SERVICE DATE: 01/26/2019 SERVICE TIME: 11:21 AM LOS: 4 days JAZZY PAVON met with patient at bedside to discuss discharge planning. Patient informed that Physical Therapy is recommending Alf Facility for discharge. JAZZY PAVON discussed freedom of choice with patient. Patient sates he is agreeable to half-way facility at discharge. JAZZY PAVON provided and offered to read patient the [facility] Provider list for SNF choices patient states he does not have his glasses to read himself. Patient declines offer and requests that JAZZY APVON call his spouse Abraham for half-way facility choices. Patient provided his spouses contact information [phone]. JAZZY PAVON called and spoke to Abraham and read her the [facility] Provider List for SNF. FREEDOM OF CHOICE GIVEN: Yes [place] of choice explained to patient and patients spouse Abraham. Financial Disclosure Provided The patient and/or family has been given the Provider List: Yes Provider List: Alf Facility Preference: Alf Facility: 1. [facility] - [phone] 2. [place] [facility] - [phone] 3. [facility] - [phone] Referrals sent in Allscripts to SNF choices. SIGNATURE: Kari Toscano RN PATIENT NAME: Jorge Covington DATE: January 26, 2019 TIME: 11:21 AM PAGER/CONTACT #: [phone] Normal [facility] CBCon 01-26-2019 Erythrocyte distribution width (RBC) [Ratio] 18.0 % High 11.5-15.0 [facility] Comment on above: Performed By: #### T SH #### [facility] [address] [place] [phone] Hematocrit (Bld) [Volume fraction] 37.7 % Low 39.0-51.0 [facility] Comment on above: Performed By: #### T SH #### [facility] [address] [place] [phone] Hemoglobin (Bld) [Mass/Vol] 12.0 g/dL Low 13.0-17.0 [facility] Comment on above: Performed By: #### T SH #### [facility] [address] [place], [place] [phone] MCH (RBC) [Entitic mass] 29.6 pG Normal 26.0-34.0 [facility] Comment on above: Performed By: #### T SH #### [facility] [address] [place], [place] [phone] MCHC (RBC) [Mass/Vol] 31.8 g/dL Normal 30.5-36.0 [facility] Comment on above: Performed By: #### T SH #### [facility] [address] [facility] [phone] MCV (RBC) [Entitic vol] 93.1 fL Normal 80.0-100.0 [facility] Comment on above: Performed By: #### T SH #### [facility] [address] [place], [place] [address] Platelet mean volume (Bld) [Entitic vol] 9.9 fL Normal 9.0-12.7 [facility] Comment on above: Performed By: #### T SH #### [facility] [address] [facility] [phone] Platelets (Bld) [#/Vol] 334 10*3/uL Normal 150-400 [facility] Comment on above: Performed By: #### T SH #### [facility] [address] [facility] [phone] RBC (Bld) [#/Vol] 4.05 10*6/uL Low 4.20-6.00 [facility] Comment on above: Performed By: #### T SH #### [facility] [address] [facility] [phone] WBC (Bld) [#/Vol] 7.97 10*3/uL Normal 3.70-11.00 [facility] Comment on above: Performed By: #### T SH #### [facility] [address] [facility] [phone] Free T3on 01-26-2019 Free T3 [Mass/Vol] 1.3 pg/mL Low 2.3-4.1 [facility] Comment on above: Performed By: #### F REET3 ####[facility] [place], [place] [phone] Free T3 [Mass/Vol] Duplicate request Normal 2.3-4.1 [facility] Comment on above: Performed By: #### T SH #### [facility] [address] [facility] [phone] Free T4on 01-26-2019 Free T4 [Mass/Vol] Duplicate request Normal 0.9-1.7 [facility] Comment on above: Performed By: #### C BC, BMP, MG1, PHOS, FREET3, FT4 ####[facility] [address] [place], [place] [phone] Magnesiumon 01-26-2019 Magnesium [Mass/Vol] 2.1 mg/dL Normal 1.7-2.3 [facility] Comment on above: Performed By: #### T SH #### [facility] [address] [facility] [phone] NURSING PROGon 01-26-2019 NURSING PROG HNO ID: [id number] Author: Lesly De La RosaRn) JAZZY Borrego Service: Nursing Author Type: Registered Nurse Type: Nursing Progress Note Filed: 01/26/2019 10:13 PM Note Text: Nursing Progress Note Patient Name: Jorge Covington Patient Location: [place]-[id number]/[place]-02[place] -1 Transfer Note: Patient transferred into room/unit 264 in stable condition. Actions taken: No futher actions taken at this time. Will continue to monitor and check with patient. This note was completed by: Lesly Borrego RN [facility] NURSING PROG HNO ID: [id number] Author: Goran De La RosaRnDemi Thomas RN Service: ? Author Type: Registered Nurse Type: Nursing Progress Note Filed: 01/26/2019 9:31 PM Note Text: Nursing Progress Note Patient Name: Jorge Covington [facility] Daily Note 2124- Transferred via bed out of icu 1 to RM#264 via bed on 2L. All belongings sent with patient. VSS. Safety maintained. This note was completed by: Goran Thomas Rn [facility] PLAN OF CAREon 01-26-2019 PLAN OF CARE HNO ID: [id number] Author: Rossi Farmer Service: Endocrinology Author Type: Physician Type: Plan of Care Filed: 01/26/2019 11:11 AM Note Text: Plan of Care: -- monitoring thyroid labs daily with you -- no change today -- continue IV levothyroxine 150 mcg -- Free t4 daily -- TSH Thursday -- Will return Thursday to bedside and make comments when TSH returns Rossi Farmer MD [facility] PROGRESSon 01-26-2019 PROGRESS HNO ID: [id number] Author: Merrick Kuhn Service: Critical Care Author [...] the A/P section below. Please refer to [employer] for list of inpatient medications. 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 Current Assessment AND Plan Assessment: H/O Hypothyroidism On Po Levothyroxine stopped taking as ran out of prescriptons PLAN: Endocrinology on board IV Levothyroxine Daily thyroid studies TSH on Thursday Pulmonary COPD (chronic obstructive pulmonary disease) ([facility]) 06/08/2018 - Present Acute respiratory failure ([facility]) 01/22/2019 - Present Current Assessment AND Plan Assessment: Intubated 01/22 overnight ---> Extubated 01/25 PLAN: Continue scheduled nebs Aggressive pulm toilet OOB ISS Infectious Disease Septicemia ([facility]) 01/23/2019 - Present Current Assessment [...] HOURS 01/22/192228 -- 01/22/192229 pneumatic compression stockings (id,me) 01/22/191814 vte non-pharmacologic prophylaxis - none indicated (id,me) 01/22/191814 activity - mobilize patient (id,me) VTE Prophylaxis: VTE prophylaxis appropriate Plan of care discussed with: Provider, RN, Patient SIGNATURE: Camila Rizvi MD PATIENT NAME: Jorge Covington DATE: January 26, 2019 TIME: 11:16 AM PAGER/CONTACT #: [phone] ICU STAFF PHYSICIAN NOTE OF PERSONAL INVOLVEMENT [...] monitoring D/w Dr.Esterle Desai for transfer to [facility] I have reviewed and verified the recent history and physical examination obtained and documented by fellow and I personally participated in the hodges components. I have discussed the case and management of the patient's care, exclusive of separately billed procedures which fulfilled the standards for LEVEL 3. SIGNATURE: Merrick Kuhn MD DATE: 01/26/2019 TIME: 2:14 PM [facility] PROGRESS HNO ID: [id number] Author: Shirley Romo Service: ? Author Type: [...] HOURS 01/22/192228 -- 01/22/192229 pneumatic compression stockings (id,me) 01/22/191814 vte non-pharmacologic prophylaxis - none indicated (id,oh) 01/22/191814 activity - mobilize patient (id,me) VTE Prophylaxis: VTE prophylaxis appropriate SIGNATURE: Shirley Romo DO PATIENT NAME: Jorge Covington DATE: January 26, 2019 TIME: 10:09 AM PAGER/CONTACT #: [phone] Normal [facility] Phosphoruson 01-26-2019 Phosphate [Mass/Vol] 2.9 mg/dL Normal 2.7-4.8 [facility] Comment on above: Performed By: #### T #### [facility] [address] [place] [address] THERAPY NTon 01-26-2019 THERAPY NT HNO ID: [id number] Author: Drea (Ot/LDemi Burciaga Service: Occupational Therapy Author Type: Occupational Therapist Type: Therapy (PT/OT/Speech/Resp) Filed: 01/28/2019 1:50 PM Note Text: Occupational Therapy Evaluation SERVICE DATE: 01/26/2019 SERVICE TIME: 1350 to 1425 ROOM: [place] [address] Recommended Discharge Disposition: Subacute/SNF Recommended Discharge Disposition [...] and Awareness Interventions Provided: Evaluation;Therapeuti c Activity (80549);Self Longterm Management (78555) $ Evaluation-Moderate (60756) Billed Units: 1 unit Therapeutic Activity (76837) Treatment Minutes: 15 1 unit Skilled Intervention(s): [...] self care activities while EOB sitting Self Longterm Management (01302) Treatment Minutes: 10 1 unit Skilled Intervention(s): [...] Care;Shopping;Transpo rtation;Wheelchair Mobility Prior Functional Level Comments: 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 w/c/bed bound, pt is [...] 26, 2019 TIME: 2:53 PM [facility] THERAPY NT HNO ID: [id number] Author: Faith (Pt) Gerardo Service: Physical Therapy Author Type: Physical Therapist Type: Therapy (PT/OT/Speech/Resp) Filed: 01/26/2019 10:41 AM Note Text: Physical Therapy Evaluation SERVICE DATE: 01/26/2019 SERVICE TIME: 0857 to 0946 ROOM: [place] [address] Recommended Discharge Disposition: Subacute/SNF Recommended Discharge Disposition [...] at approach (recently weaned from 2LO2 per SALES COORDINATOR), requires reapplication of 2LO2 during session to [...] Reduced mobility-other Interventions Provided: Evaluation;Therapeuti c Exercise (58167);Therapeutic Activity (35084);Neuromuscular Reeducation (55963) $ Evaluation-Moderate (84639) Billed Units: 1 unit Therapeutic Exercise (78482) Treatment Minutes: 6 Skilled Intervention(s): Instruction in [...] >90% and up to 92% Therapeutic Activity (19789) Treatment Minutes: 8 1 unit Skilled Intervention(s): [...] home PT (pt active with home PT SUPPLIER QUALITY MANAGER and requesting preference for return to home [...] for proper deep breathing techniques Neuromuscular Re-Education (18136) Treatment Minutes: 10 1 unit Skilled Intervention(s): [...] Care;Shopping;Transpo rtation;Wheelchair Mobility Prior Functional Level Comments: 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 IMPRESSION: Mild bibasilar atelectasis. Rug Measurer: PSCB Transcribe Date/Time: Jan 26 2019 6:34A Dictated by : RELL SIERRA MD This examination was interpreted and the report reviewed and electronically signed by: RELL SIERRA MD on Jan 26 2019 6:58AM EST [id number] [facility] ALLIED HEALTHon 01-25-2019 ALLIED HEALTH HNO ID: [id number] Author: Kannan Block (Rt) Service: Radiology Author Type: Golf Caddie Type: Allied Health Filed: 01/25/2019 6:24 AM [...] January 25, 2019 6:24 AM [facility] Basic Metabolic Panlon 01-25 Anion gap [Moles/Vol] 8 mmol/L Low 9-18 [facility] Comment on above: Performed By: #### C BC, BMP, MG1, PHOS ####[facility] [address] [place] [address] Calcium [Mass/Vol] 8.8 mg/dL Normal 8.5-10.2 [facility] Comment on above: Performed By: #### C BC, BMP, MG1, PHOS ####[facility] [address] [place] [address] Chloride [Moles/Vol] 104 mmol/L Normal 97-105 [facility] Comment on above: Performed By: #### C BC, BMP, MG1, PHOS ####[facility] [address] [place] [address] CO2 [Moles/Vol] 25 mmol/L Normal 22-30 [facility] Comment on above: Performed By: #### C BC, BMP, MG1, PHOS ####[facility] [address] [place] [address] Creatinine [Mass/Vol] 0.95 mg/dL Normal 0.73-1.22 [facility] Comment on above: Performed By: #### C BC, BMP, MG1, PHOS ####[facility] [address] [place] [address] eGFR- Amer. >60 Normal [facility] Comment on above: Performed By: #### C BC, BMP, MG1, PHOS ####[facility] [address] [place] [address] GFR/1.73 sq M predicted among non-blacks MDRD (S/P/Bld) [Vol rate/Area] mL/min/{1.73_m2} Normal [facility] Comment on above: Result Comment: eGFR [...] #### C MILES HALL MG1, PHOS ####[facility] [address] [place] [address] Glucose [Mass/Vol] 105 mg/dL High 74-99 [facility] Comment on above: Result Comment: The [place] [employer] (ADA) provides guidance for cutoff [...] Standards of Medical Care in Diabetes 2016, [place] [employer]. Diabetes Care. 2016.39(Suppl 1). Performed By: #### C MILES HALL, MG1, PHOS ####[facility] [address] [place] [address] Potassium [Moles/Vol] 3.5 mmol/L Low 3.7-5.1 [facility] Comment on above: Performed By: #### C MILES HALL, MG1, PHOS ####[facility] [address] [place] [address] Sodium [Moles/Vol] 137 mmol/L Normal 136-144 [facility] Comment on above: Performed By: #### C MILES HALL, MG1, PHOS ####[facility] [address] [place] [address] Urea nitrogen [Mass/Vol] 12 mg/dL Normal 9-24 [facility] Comment on above: Performed By: #### C MILES HALL, MG1, PHOS ####[facility] [address] [place] [address] CASE MANAGEMon 01-25-2019 CASE MANAGEM HNO ID: [id number] Author: Kari De La RosaRn) JAZZY Toscano [...] (Hcc) Septicemia (Hcc) Attendees Present at Rounds: Financial Recording Clerk: Kari Toscano Pharmacy: [facility] Provider: Merrick Kuhn and Camila Rizvi Staff Nurse: Giovanni Mckeon Needs Discussed on Rounds: Plan of Care Anticipated Discharge Disposition: Home with Home Health Care vs Alf Facility [phone] - Yes willing to accept for services. [...] January 25, 2019 TIME: 11:52 AM CSN: [id number] Normal [facility] CBCon 01-25-2019 Erythrocyte distribution width (RBC) [Ratio] 18.4 % High 11.5-15.0 [facility] Comment on above: Performed By: #### N TBNP #### [facility] [address] [place] [address] Hematocrit (Bld) [Volume fraction] 35.2 % Low 39.0-51.0 [facility] Comment on above: Performed By: #### N TBNP #### [facility] [address] [place] [address] Hemoglobin (Bld) [Mass/Vol] 11.0 g/dL Low 13.0-17.0 [facility] Comment on above: Performed By: #### N TBNP #### [facility] [address] [place], [place] [address] MCH (RBC) [Entitic mass] 29.3 pG Normal 26.0-34.0 [facility] Comment on above: Performed By: #### N TBNP #### [facility] [address] [place], [place] [address] MCHC (RBC) [Mass/Vol] 31.3 g/dL Normal 30.5-36.0 [facility] Comment on above: Performed By: #### N TBNP #### [facility] [address] [place], [place] [phone] MCV (RBC) [Entitic vol] 93.6 fL Normal 80.0-100.0 [facility] Comment on above: Performed By: #### N TBNP #### [facility] [address] [place], [place] [phone] Platelet mean volume (Bld) [Entitic vol] 9.7 fL Normal 9.0-12.7 [facility] Comment on above: Performed By: #### N TBNP #### [facility] [address] [facility] [phone] Platelets (Bld) [#/Vol] 335 10*3/uL Normal 150-400 [facility] Comment on above: Performed By: #### N TBNP #### [facility] [facility] [address] [facility] [phone] RBC (Bld) [#/Vol] 3.76 10*6/uL Low 4.20-6.00 [facility] Comment on above: Performed By: #### N TBNP #### [facility] [address] [facility] [phone] WBC (Bld) [#/Vol] 7.63 10*3/uL Normal 3.70-11.00 [facility] Comment on above: Performed By: #### N TBNP #### [facility] [address] [facility] [phone] CONSULT PROGon 01-25-2019 CONSULT PROG HNO ID: [id number] Author: Rossi Vásquez) Marleny Service: Endocrinology Author [...] affect and behaviour normal Rossi Farmer MD [facility] Endocrinology and Metabolism [facility] January 25, 2019 5:09 PM [facility] CONSULT PROG HNO ID: [id number] Author: Justin Davila Service: Pulmonary Disease Author Type: Physician Type: Consult Progress Note Filed: 01/28/2019 10:14 AM Note Text: Patient extubated with no ongoing pulmonary issues. Will sign off-discussed with ICU attending [facility] Free T3on 01-25-2019 Free T3 [Mass/Vol] 1.4 pg/mL Low 2.3-4.1 [facility] Comment on above: Performed By: #### T SH #### [facility] [address] [facility] [phone] Free T4on 01-25-2019 Free T4 [Mass/Vol] 0.6 ng/dL Low 0.9-1.7 [facility] Comment on above: Performed By: #### T SH #### [facility] [address] [facility] [phone] Magnesiumon 01-25-2019 Magnesium [Mass/Vol] 1.8 mg/dL Normal 1.7-2.3 [facility] Comment on above: Performed By: #### C BC, BMP, MG1, PHOS ####[facility] [address] [place], [place] [id number] NURSING PROGon 01-25-2019 NURSING PROG HNO ID: [id number] Author: Britta De La RosaRn) JAZZY Dorado Service: Nursing Author Type: Registered Nurse Type: Nursing Progress Note Filed: 01/25/2019 7:01 AM Note Text: Nursing Progress: Topic: RESTRAINT NON-VIOLENT PATIENT NAME: Jorge Covington [place]ATION[place]-0001/[place]-0001 -1 The patient demonstrates Attempting to Remove [...] NON-VIOLENT PATIENT NAME: Jorge Covington PATIENT [place]ATION: [place]-0001/[place]-0001 -1 The patient demonstrates Attempting to Remove [...] 7:00 AM Britta Dorado RN [facility] NURSING [facility] ID: [id number] Author: Giovanni Mckeon RN Service: Nursing Author Type: Registered Nurse Type: Nursing Progress Note Filed: 01/25/2019 2:33 PM Note Text: Nursing Progress Note Patient Name: Jorge Covington Patient Location: [place]-0001/[place]-0001 -1 Daily Note: 01/25/19 1030: Restraints DC'd post extubation. 1115: Call to , aDsia, regarding patient updates of overall status and extubation. This note was completed by: Giovanni Mckeon RN [facility] NURSING PROG HNO ID: [id number] Author: Giovanni Lowe) JAZZY Mckeon Service: Nursing Author Type: Registered Nurse Type: Nursing Progress Note Filed: 01/25/2019 9:54 AM Note Text: Nursing Progress: Topic: RESTRAINT NON-VIOLENT PATIENT NAME: Jorge Covington PATIENT LOCATION: [place] [address]/[address] The patient demonstrates Attempting to Remove [...] 9:53 AM Giovanni Mckeon RN [facility] PROGRESSon 01-25-2019 PROGRESS HNO ID: [id number] Author: Shirley Romo Service: ? Author Type: [...] 01/22/199 -- 01/22/19 223 pneumatic compression stockings ([place]) 01/22/19 181 vte non-pharmacologic prophylaxis - none indicated (id,me) 01/22/19 181 activity - mobilize patient ([place]) VTE Prophylaxis: VTE prophylaxis appropriate SIGNATURE: Shirley Romo DO PATIENT NAME: Jorge Covington DATE: January 25, 2019 TIME: 11:46 AM PAGER/CONTACT #: [phone] [facility] PROGRESS HNO ID: [id number] Author: [place] Kuhn Service: Critical Care Author [...] the A/P section below. Please refer to [facility] for list of inpatient medications. 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 Current Assessment AND Plan Assessment: H/O Hypothyroidism On Po Levothyroxine stopped taking as ran out of prescriptons PLAN: Endocrinology on board IV Levothyroxine Daily thyroid studies Pulmonary COPD (chronic obstructive pulmonary disease) ([facility]) 06/08/2018 - Present Acute respiratory failure ([facility]) 01/22/2019 - Present Current Assessment AND Plan Assessment: Intubated 01/22 overnight ---> Extubated 01/25 PLAN: Continue scheduled nebs Aggressive pulm toilet OOB ISS Infectious Disease Septicemia ([facility]) 01/23/2019 - Present Current Assessment [...] indicated ([place]) 01/22/191814 activity - mobilize patient (id,me) VTE Prophylaxis: VTE prophylaxis appropriate Plan of care discussed with: Provider, RN, Patient SIGNATURE: Camila Rizvi MD PATIENT NAME: Jorge Covington DATE: January 25, 2019 TIME: 11:20 AM PAGER/CONTACT #: [phone] ICU STAFF PHYSICIAN NOTE OF PERSONAL INVOLVEMENT [...] DATE: January 25, 2019 TIME: 1:24 PM [facility] 01-25-2019 Phosphate [Mass/Vol] 3.6 mg/dL Normal 2.7-4.8 [facility] Comment on above: Result Comment: Rech ecked Performed By: #### C BC, BMP, MG1, PHOS ####[facility] [address] [place] [phone] XR CHEST 1V FRONTALon 2018 XR CHEST [...] Cardiomediastinal silhouette: Stable cardiomediastinal silhouette. Other: . Rug Measurer: PSCB Transcribe Date/Time: Jan 25 2019 8:20A Dictated by : NADJA DONNELLY MD This examination was interpreted and the report reviewed and electronically signed by: NADJA DONNELLY MD on Jan 25 2019 8:22AM EST [id number] Normal [facility] ALLIED HEALTHon 01-24-2019 ALLIED HEALTH HNO ID: [id number] Author: Kannan Nicole (Rt) Service: Radiology Author Type: Golf Caddie Type: Allied Health Filed: 01/24/2019 11:14 AM [...] January 24, 2019 11:13 AM Normal [facility] Basic Metabolic Panlon 01-24 Anion gap [Moles/Vol] 12 mmol/L Normal 9-18 [facility] Comment on above: Performed By: #### C BCDIF, CMP #### [facility] [address] Calcium [Mass/Vol] 8.9 mg/dL Normal 8.5-10.2 [facility] Comment on above: Performed By: #### C BCDIF, CMP #### [facility] [address] [place] [address] Chloride [Moles/Vol] 105 mmol/L Normal 97-105 [facility] Comment on above: Performed By: #### C BCDIF, CMP #### [facility] [address] [place] [phone] CO2 [Moles/Vol] 23 mmol/L Normal 22-30 [facility] Comment on above: Performed By: #### C BCDIF, CMP #### [facility] [address] Creatinine [Mass/Vol] 0.94 mg/dL Normal 0.73-1.22 [facility] Comment on above: Performed By: #### C BCDIF, CMP #### [facility] [address] [place] [phone] eGFR- Amer. >60 Normal [facility] Comment on above: Performed By: #### C BCDIF, CMP #### [facility] [address] GFR/1.73 sq M predicted among non-blacks MDRD (S/P/Bld) [Vol rate/Area] mL/min/{1.73_m2} Normal [facility] Comment on above: Result Comment: eGFR [...] By: #### C JAKE CMP #### [facility] Laboratory [address] [place], [place] [phone] Glucose [Mass/Vol] 127 mg/dL High 74-99 [facility] Comment on above: Result Comment: The [place] Diabetes [employer] (ADA) provides guidance for cutoff [...] Standards of Medical Care in Diabetes 2016, [place] [employer]. Diabetes Care. 2016.39(Suppl 1). Performed By: #### C ANTONIOF, CMP #### [facility] [address] [place] [address] Potassium [Moles/Vol] 4.0 mmol/L Normal 3.7-5.1 [facility] Comment on above: Performed By: #### C JAKE CMP #### [facility] [address] [place] [address] Sodium [Moles/Vol] 140 mmol/L Normal 136-144 [facility] Comment on above: Performed By: #### C JAKE, CMP #### [facility] [address] [place], [place] [phone] Urea nitrogen [Mass/Vol] 8 mg/dL Low 9-24 [facility] Comment on above: Performed By: #### C JAKE CMP #### [facility] [address] [place], [place] [phone] Blood Cultureon 01-24-2019 Bacteria identified Cx Nom (Bld) Culture Result - No growth 5 days Normal [facility] Comment on above: Performed By: #### B LCUL ####[facility] [place], [place] [phone] Bacteria identified Cx Nom (Bld) Culture Result - No growth 5 days Normal [facility] Comment on above: Performed By: #### B LCUL ####[facility] [address] [place], [place] [phone] CASE MGT INIT Garo 2018 CASE MGT INIT DOE HNO ID: [id number] Author: Amanda Simeon (Sw) Service: ? Author Type: Family Court Justice Type: Care Mgt Initial Assessment Filed: 01/24/2019 [...] Current Advance Directive: Health Care Power of Rock Worker In Chart: Yes Up To Date and [...] Wheelchair Has the Patient Been in a Alf Facility in the Past 30 days? No SOCIAL: Living Arrangement: Home Lives With: Spouse Financial Resources: Disabled Primary Contact: Extended Emergency Contact Information Primary Emergency Contact: Dasia Covintgon Address: [address] [place] [address] OF [facility] Mobile Relation: Spouse Supportive: Yes Other [...] 0 I feel financially burdened by my [id number] expenses for my prescription medication: Disagree completely [...] indicated POTENTIAL TRANSITION PLANS Home Home Care Alf Facility/Intermediate Care Facility Pt is sedated and [...] decision yet. Spouse may need list of [place] facilities and OZ explained CM able to provide. Pt's spouse requested OZ call JAZZY Ewing at [phone] to see which agency she works for [...] 24, 2019 TIME: 11:59 AM PAGER/CONTACT #: [phone] Normal [facility] CBCon 01-24-2019 Erythrocyte distribution width (RBC) [Ratio] 18.2 % High 11.5-15.0 [facility] Comment on above: Performed By: #### C BCDIF, CMP #### [facility] [address] [facility] [phone] Hematocrit (Bld) [Volume fraction] 36.3 % Low 39.0-51.0 [facility] Comment on above: Performed By: #### C BCDIF, CMP #### [facility] [address] [facility] [phone] Hemoglobin (Bld) [Mass/Vol] 11.7 g/dL Low 13.0-17.0 [facility] Comment on above: Performed By: #### C BCDIF, CMP #### [facility] [address] [facility] [phone] MCH (RBC) [Entitic mass] 29.8 pG Normal 26.0-34.0 [facility] Comment on above: Performed By: #### C BCDIF, CMP #### [facility] [address] [facility] [phone] MCHC (RBC) [Mass/Vol] 32.2 g/dL Normal 30.5-36.0 [facility] Comment on above: Performed By: #### C BCDIF, CMP #### [facility] [address] [facility] [phone] MCV (RBC) [Entitic vol] 92.4 fL Normal 80.0-100.0 [facility] Comment on above: Performed By: #### C BCDIF, CMP #### [facility] [address] [facility] [phone] Platelet mean volume (Bld) [Entitic vol] 9.7 fL Normal 9.0-12.7 [facility] Comment on above: Performed By: #### C BCDIF, CMP #### [facility] [address] [facility] [phone] Platelets (Bld) [#/Vol] 382 10*3/uL Normal 150-400 [facility] Comment on above: Performed By: #### C BCDIF, CMP #### [facility] [address] [facility] [phone] RBC (Bld) [#/Vol] 3.93 10*6/uL Low 4.20-6.00 [facility] Comment on above: Performed By: #### C BCDIF, CMP #### [facility] [address] [facility] [phone] WBC (Bld) [#/Vol] 9.60 10*3/uL Normal 3.70-11.00 [facility] Comment on above: Performed By: #### C BCDIF, CMP #### [facility] [address] [facility] [phone] CONSULT PROGon 01-24-2019 CONSULT PROG HNO ID: [id number] Author: Justin Davila Service: Pulmonary Disease Author Type: Physician Type: Consult Progress Note Filed: 01/24/2019 11:19 AM Note Text: [facility] PULMONARY MEDICINE IN-PATIENT CONSULT PROGRESS NOTE [...] pathology data. Justin Davila MD Staff, Respiratory [facility] Pager #[phone] SUBJECTIVE CHIEF COMPLAINT: Respiratory failure INTERVAL HPI:Jorge [...] 24, 2019 TIME: 11:06 AM PAGER/CONTACT #: [phone] [facility] CONSULT PROG HNO ID: [id number] Author: Sandra Simon Service: Endocrinology Author Type: [...] Units SUBCUTANEOUS q 12 H Gayatri E (Land Classifier) Sly 5,000 Units at 01/24/19 0957 - cefTRIAXone 1 g in D5W 100 mL MB+ (ROCEPHIN) 1 g INTRAVENOUS q 24 H Gayatri E (Land Classifier) Sly 200 mL/hr at 01/24/19 0955 1 g at 01/24/19 0955 - propofol infusion (DIPRIVAN) 5-60 mcg/kg/min INTRAVENOUS CONTINUOUS Gayatri E (Land Classifier) Sly CURRENT ALLERGIES: Allergies As of Date: [...] MD DATE: January 24, 2019 Normal [facility] Cortisolon 01-24-2019 Cortisol 2.9 ug/dL Normal [facility] Comment on above: Result Comment: Carlo isol Reference Range: AM = 5.3-22.5, PM = 3.4-16.8 Performed By: #### N TBNP #### [facility] Laboratory [address] [place] [address] Free T3on 01-24-2019 Free T3 [Mass/Vol] 1.0 pg/mL Low 2.3-4.1 [facility] Comment on above: Performed By: #### N TBNP #### [facility] [address] [place] [address] Free T4on 01-24-2019 Free T4 [Mass/Vol] 0.5 ng/dL Low 0.9-1.7 [facility] Comment on above: Performed By: #### N TBNP #### [facility] [address] [place] [address] Performed By: #### C BCDARI CMP #### [facility] [address] [place] [address] Magnesiumon 01-24-2019 Magnesium [Mass/Vol] 1.9 mg/dL Normal 1.7-2.3 [facility] Comment on above: Performed By: #### C BCDARI, CMP #### [facility] [address] [place] [address] NURSING PROGon 01-24-2019 NURSING PROG HNO ID: [id number] Author: Alessandra (Rn) JAZZY Norton Service: Nursing Author Type: Registered Nurse Type: Nursing Progress Note Filed: 01/24/2019 12:49 PM Note Text: Nursing Progress: Topic: RESTRAINT NON-VIOLENT PATIENT NAME: Jorge Covington PATIENT LOCATION: [place] [address]/[facility]0001 -1 The patient demonstrates Attempting to Remove [...] 12:49 PM Alessandra Norton RN [facility] NUTRITIONon 01-24-2019 NUTRITION HNO ID: [id number] Author: Laurie Gonzalez Service: Nutrition Therapy Author [...] lb) 01/12/18 : 104.3 kg (230 lb) [place] Body Weight: 63.8kg Resting Metabolic Rate: 1809 Estimated kilocalorie needs: 2600-2523 kilocalories determined by 25-30 kcal/kg Estimated protein needs:65-83 grams determined by 1.0-1.3 g/kg [place] weight Estimated fluid needs: 0248-0779 milliliters based on 1 mL per kcal [...] 2019 TIME: 12:03 PM PAGER: [facility] PROGRESSon 01-24-2019 PROGRESS HNO ID: [id number] Author: [place] Kuhn Service: Critical Care Author [...] the A/P section below. Please refer to [facility] for list of inpatient medications. 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 Current Assessment AND Plan Assessment: H/O Hypothyroidism On Po Levothyroxine stopped taking as ran out of prescriptons PLAN: Endocrinology on board IV Levothyroxine Daily thyroid studies Pulmonary COPD (chronic obstructive pulmonary disease) ([facility]) 06/08/2018 - Present Acute respiratory failure ([facility]) 01/22/2019 - Present Current Assessment AND Plan Assessment: Intubated 01/22 overnight PLAN: Lung protective ventilation Wean as tolerated Infectious Disease Septicemia ([facility]) 01/23/2019 - Present Current Assessment [...] HOURS 01/22/192228 -- 01/22/192229 pneumatic compression stockings (id,me) 01/22/191814 vte non-pharmacologic prophylaxis - none indicated (id,me) 01/22/191814 activity - mobilize patient ([place]) VTE Prophylaxis: VTE prophylaxis appropriate Plan of care discussed with: Provider, RN, Patient SIGNATURE: Camila Rizvi MD PATIENT NAME: Jorge Covington DATE: January 24, 2019 TIME: 11:40 AM PAGER/CONTACT #: [phone] ICU STAFF PHYSICIAN NOTE OF PERSONAL INVOLVEMENT [...] DATE: 01/24/2019 TIME: 3:41 PM [facility] PROGRESS HNO ID: [id number] Author: Shirley Romo Service: ? Author Type: [...] 01/22/192228 -- 01/22/19 223 pneumatic compression stockings (id,me) 01/22/19 181 vte non-pharmacologic prophylaxis - none indicated (id,me) 01/22/19 181 activity - mobilize patient ([place]) VTE Prophylaxis: VTE prophylaxis appropriate SIGNATURE: Shirley Romo DO PATIENT NAME: Jorge Covington DATE: January 24, 2019 TIME: 9:38 AM PAGER/CONTACT #: [phone] Normal [facility] Phosphoruson 01-24-2019 Phosphate [Mass/Vol] 1.6 mg/dL Low 2.7-4.8 [facility] Comment on above: Performed By: #### C BCDIF, CMP #### [facility] [address] [facility] [phone] T3on 01-24-2019 T3 26 ng/dL Low 79-165 [facility] Comment on above: Performed By: #### C BCDIF, CMP #### [facility] [address] [facility] [phone] THERAPY NTon 01-24-2019 THERAPY NT HNO ID: [id number] Author: Faith De La RosaOtDemi Chew Service: Occupational Therapy Author Type: Occupational Therapist Type: Therapy (PT/OT/Speech/Resp) Filed: 01/24/2019 1:33 PM Note Text: OCCUPATIONAL THERAPY MISSED VISIT SERVICE DATE: 01/24/2019 SERVICE TIME: 1323 to 1323 ROOM: [place] [address] Attempted Evaluation. Patient not seen due to Illness. Per conversation with RN she confirmed is Pt confused, intubated and sedated. Discontinued OT orders Please reconsult if/when appropriate. ? SIGNATURE: Faith Chew, OTR/L PATIENT NAME: Jorge Covington DATE: January 24, 2019 TIME: 1:26 PM [facility] THERAPY NT HNO ID: [id number] Author: Annie De La RosaPtDemi Hare Service: Physical Therapy Author Type: Physical Therapist Type: Therapy (PT/OT/Speech/Resp) Filed: 01/24/2019 11:48 AM Note Text: PHYSICAL THERAPY MISSED VISIT SERVICE DATE: 01/24/2019 SERVICE TIME: 1023 to 1023 ROOM: [place] [address] Attempted Evaluation. Patient not seen due to (per RN not appropriate, to DC PT orders). Pt confused, intubated and sedated. Discontinued PT orders (without evaluation) as per JAZZY Aparicio's suggestions. Please reconsult if/when appropriate. SIGNATURE: Annie Hare, PT PATIENT NAME: Jorge Covington DATE: January 24, 2019 TIME: 10:25 AM [facility] XR CHEST 1V FRONTALon 2018 XR [...] and/or infectious infiltrate. No significant pleural effusion. Rug Measurer: ALDO Transcribe Date/Time: Jan 24 2019 11:32A Dictated by : CRISTEL MACKENZIE MD This examination was interpreted and the report reviewed and electronically signed by: CRISTEL MACKENZIE MD on Jan 24 2019 11:34AM EST [id number] HNO ID: [id number] Author: DAVID Webb (Ct) Service: ? Author Type: Clinical Golf Caddie Type: [facility] Filed: 01/23/2019 12:32 PM Note Text: [...] DAVID Webb January 23, 2019 12:32 PM [facility] HNO ID: [id number] Author: DAVID Sykes (Ct) Service: ? Author Type: Clinical Golf Caddie Type: [facility] Filed: 01/22/2019 11:53 PM Note Text: [...] January 22, 2019 11:52 PM [facility] Basic Metabolic Panlon 01-23 Anion gap [Moles/Vol] 12 mmol/L Normal 9-18 [facility] Comment on above: Performed By: #### B MP ####[facility] [address] [place] [address] Calcium [Mass/Vol] 8.7 mg/dL Normal 8.5-10.2 [facility] Comment on above: Performed By: #### B MP ####[facility] [address] [place] [address] Chloride [Moles/Vol] 105 mmol/L Normal 97-105 [facility] Comment on above: Performed By: #### B MP ####[facility] [address] [place] [address] CO2 [Moles/Vol] 23 mmol/L Normal 22-30 [facility] Comment on above: Performed By: #### B MP ####[facility] [address] [place], [place] [phone] Creatinine [Mass/Vol] 0.71 mg/dL Low 0.73-1.22 [facility] Comment on above: Performed By: #### B MP ####[facility] [address] eGFR- Amer. >60 Normal [facility] Comment on above: Performed By: #### B MP ####[facility] [address] [place], [place] [phone] GFR/1.73 sq M predicted among non-blacks MDRD (S/P/Bld) [Vol rate/Area] mL/min/{1.73_m2} Normal [facility] Comment on above: Result Comment: eGFR [...] GFR. Performed By: #### B MP ####[facility] [address] Glucose [Mass/Vol] 188 mg/dL High 74-99 [facility] Comment on above: Result Comment: The [place] Diabetes [employer] (ADA) provides guidance for cutoff [...] Standards of Medical Care in Diabetes 2016, [place] [employer]. Diabetes Care. 2016.39(Suppl 1). Performed By: #### B MP ####[facility] [address] [place] [address] Potassium [Moles/Vol] 4.3 mmol/L Normal 3.7-5.1 [facility] Comment on above: Performed By: #### B MP ####[facility] [address] [place] [address] Sodium [Moles/Vol] 140 mmol/L Normal 136-144 [facility] Comment on above: Performed By: #### B MP ####[facility] [address] [place] [address] Urea nitrogen [Mass/Vol] 8 mg/dL Low 9-24 [facility] Comment on above: Performed By: #### B MP ####[facility] [address] [place] [address] Anion gap [Moles/Vol] 9 mmol/L Normal 9-18 [facility] Comment on above: Performed By: #### C BC, BMP, MG1, PHOS ####[facility] [address] [place] [address] Calcium [Mass/Vol] 8.8 mg/dL Normal 8.5-10.2 [facility] Comment on above: Performed By: #### C BC, BMP, MG1, PHOS ####[facility] [address] Chloride [Moles/Vol] 102 mmol/L Normal 97-105 [facility] Comment on above: Performed By: #### C BC, BMP, MG1, PHOS ####[facility] Q[address]jj7541 [address] CO2 [Moles/Vol] 22 mmol/L Normal 22-30 [facility] Comment on above: Performed By: #### C BC, BMP, MG1, PHOS ####[facility] [address] [place] [address] Creatinine [Mass/Vol] 0.39 mg/dL Low 0.73-1.22 [facility] Comment on above: Performed By: #### C BC, BMP, MG1, PHOS ####[facility] [address] eGFR- Amer. >60 Normal [facility] Comment on above: Performed By: #### C BC, BMP, MG1, PHOS ####[facility] [address] [place] 1886360 GFR/1.73 sq M predicted among non-blacks MDRD (S/P/Bld) [Vol rate/Area] mL/min/{1.73_m2} Normal [facility] Comment on above: Result Comment: eGFR [...] #### C BC, BMP, MG1, PHOS ####[facility] Zcopoyitzr5614 [address]5[address] Glucose [Mass/Vol] 165 mg/dL High 74-99 [facility] Comment on above: Result Comment: The [place] Diabetes Association (ADA) provides guidance for cutoff [...] Standards of Medical Care in Diabetes 2016, [place] [employer]. Diabetes Care. 2016.39(Suppl 1). Performed By: #### C BC, BMP, MG1, PHOS ####[facility] [address] [place] [address] Potassium [Moles/Vol] Unable to assay. Specimen hemolyzed. Normal 3.7-5.1 [facility] Comment on above: Result Comment: CALL ED TO ICU JUAN F CUADRA Performed By: #### C BC, BMP, MG1, PHOS ####[facility] [address] [place] [address] Sodium [Moles/Vol] 133 mmol/L Low 136-144 [facility] Comment on above: Performed By: #### C BC, BMP, MG1, PHOS ####[facility] [address]zs[address]etd40[address] [place] [address] Urea nitrogen [Mass/Vol] 9 mg/dL Normal 9-24 [facility] Comment on above: Performed By: #### C BC, BMP, MG1, PHOS ####[facility] [address]to[address] [place] [address] CBCon 01-23-2019 Erythrocyte distribution width (RBC) [Ratio] 19.0 % High 11.5-15.0 [facility] Comment on above: Performed By: #### C BC, BMP, MG1, PHOS ####[facility] [address] [place] [address] Hematocrit (Bld) [Volume fraction] 41.0 % Normal 39.0-51.0 [facility] Comment on above: Performed By: #### C BC, BMP, MG1, PHOS ####[facility] K[address]bmvbnwp[address]43 [place] [address] Hemoglobin (Bld) [Mass/Vol] 12.9 g/dL Low 13.0-17.0 [facility] Comment on above: Performed By: #### C BC, BMP, MG1, PHOS ####[facility] [address] [place] [address] MCH (RBC) [Entitic mass] 29.8 pG Normal 26.0-34.0 [facility] Comment on above: Performed By: #### C BC, BMP, MG1, PHOS ####[facility] [address] [place] [address] MCHC (RBC) [Mass/Vol] 31.5 g/dL Normal 30.5-36.0 [facility] Comment on above: Performed By: #### C BC, BMP, MG1, PHOS ####[facility] [address] [place] [address] MCV (RBC) [Entitic vol] 94.7 fL Normal 80.0-100.0 [facility] Comment on above: Performed By: #### C BC, BMP, MG1, PHOS ####[facility] [address] [place] [address] Platelet mean volume (Bld) [Entitic vol] 10.1 fL Normal 9.0-12.7 [facility] Comment on above: Performed By: #### C BC, BMP, MG1, PHOS ####[facility] [address] [place] [address] Platelets (Bld) [#/Vol] 388 10*3/uL Normal 150-400 [facility] Comment on above: Performed By: #### C BC, BMP, MG1, PHOS ####[facility] [address] [place], [place] [phone] RBC (Bld) [#/Vol] 4.33 10*6/uL Normal 4.20-6.00 [facility] Comment on above: Performed By: #### C BC, BMP, MG1, PHOS ####[facility] [address] [place], [place] [phone] WBC (Bld) [#/Vol] 6.32 10*3/uL Normal 3.70-11.00 [facility] Comment on above: Performed By: #### C BC, BMP, MG1, PHOS ####[facility] [address] [place], [place] [phone] CONSULTon 01-23-2019 CONSULT HNO ID: [id number] Author: Rossi Vásquez) Marleny Service: Endocrinology Author [...] -- IV lt4 is being ordered from [facility] and should arrive by 1 [...] assisted care facility after his discharge from [facility] for admission of intradural cyst [...] (LEVOPHED) 0.5-50 mcg/min INTRAVENOUS CONTINUOUS Gayatri E (Land Classifier) Sly - DOPamine iv infusion 800 mg/250 mL D5W 2.5-20 mcg/kg/min INTRAVENOUS CONTINUOUS Gayatri E (Land Classifier) Sly Stopped at 01/23/19 0324 - levothyroxine [...] Units SUBCUTANEOUS q 12 H Gayatri E (Land Classifier) Sly 5,000 Units at 01/23/19 0850 - cefTRIAXone 1 g in D5W 100 mL MB+ (ROCEPHIN) 1 g INTRAVENOUS q 24 H Gayatri E (Land Classifier) Sly 200 mL/hr at 01/23/19 0848 1 g at 01/23/19 0848 - propofol infusion (DIPRIVAN) 5-60 mcg/kg/min INTRAVENOUS CONTINUOUS Gayatri E (Land Classifier) Sly - fentaNYL 20 mcg/mL iv infusion in NaCl 0.9% 100 mL 25-250 mcg/hr INTRAVENOUS CONTINUOUS Gayatri E (Land Classifier) Sly 10 mL/hr at 01/23/19 0947 200 [...] file Gets together: Not on file Attends jehovah's witness service: Not on file Active member of [...] Fingerstick glucose readings reviewed. Rossi Farmer MD [facility] Endocrinology and Metabolism [facility] January 23, 2019 11:20 AM Normal [facility] CONSULT HNO ID: [id number] Author: Christina Vásquez) Kori Service: Pulmonary Disease [...] is in agreement with current management plan. [facility] STAFF PHYSICIAN NOTE OF PERSONAL INVOLVEMENT IN [...] per chart review. On arrival to the [place] ED, his O2 saturation on room air [...] 1.2 1.2 Christina Kori, MD Staff, Respiratory [place] Pager #[phone] Normal [facility] Cortisolon 01-23-2019 Cortisol 26.3 ug/dL Normal [facility] Comment on above: Result Comment: Carlo isol Reference Range: AM = 5.3-22.5, PM = 3.4-16.8 Performed By: #### N TBNP #### [facility] [address] [facility] [phone] Free T3on 01-23-2019 Free T3 [Mass/Vol] pg/mL Low 2.3-4.1 [facility] Comment on above: Performed By: #### F REET3 ####[facility] [place], [place] [phone] Free T4on 01-23-2019 Free T4 [Mass/Vol] ng/dL Low 0.9-1.7 [facility] Comment on above: Performed By: #### F T4 ####[facility] [place], [place] [phone] HISTORY PHYSICALon 9 HISTORY PHYSICAL HNO ID: [id number] Author: Shirley Romo Service: ? Author Type: [...] HOURS 01/22/192228 -- 01/22/192229 pneumatic compression stockings (id,oh) 01/22/191814 vte non-pharmacologic prophylaxis - none indicated (id,oh) 01/22/191814 activity - mobilize patient (id,me) VTE Prophylaxis: VTE prophylaxis appropriate SIGNATURE: Shirley Romo DO PATIENT NAME: Jorge Covington DATE: January 23, 2019 TIME: 8:20 AM PAGER/CONTACT #: [phone] Normal [facility] Legionella Urine Agon 2018 Legionella Urine Ag Negative Normal Negative [facility] Comment on above: Performed By: #### L EGUAG ####[facility] Ergythyubn2949 [address]5[address] Magnesiumon 01-23-2019 Magnesium [Mass/Vol] 1.8 mg/dL Normal 1.7-2.3 [facility] Comment on above: Performed By: #### C BC, BMP, MG1, PHOS ####[facility] Mgqptkoyco1008 [address]5160 NURSING PROGon 01-23-2019 NURSING PROG HNO ID: [id number] Author: Alessandra De La RosaRn) JAZZY Norton Service: Nursing Author Type: Registered Nurse Type: Nursing Progress Note Filed: 01/23/2019 12:56 PM Note Text: Nursing Progress: Topic: RESTRAINT NON-VIOLENT PATIENT NAME: Jorge Covington PATIENT LOCATION: [facility] The patient demonstrates Attempting to Remove Medical [...] 12:55 PM Alessandra Norton RN Normal [facility] NURSING PROG HNO ID: [id number] Author: Britta De La RosaRn) JAZZY Dorado Service: Nursing Author Type: Registered Nurse Type: Nursing Progress Note Filed: 01/23/2019 12:27 AM Note Text: Nursing Progress: Topic: RESTRAINT NON-VIOLENT PATIENT NAME: Jorge Covington PATIENT LOCATION: [facility]2329/[facility]2329 The patient demonstrates as evidenced by the [...] NON-VIOLENT PATIENT NAME: Jorge Covington PATIENT LOCATION: [place] [address]/[facility] The patient demonstrates as evidenced by the [...] 12:27 AM Britta Dorado RN [facility] NURSING PROG HNO ID: [id number] Author: Rosalinda De La RosaRn) JAZZY Narayan Service: ? Author Type: Registered Nurse Type: Nursing Progress Note Filed: 01/22/2019 11:44 PM Note Text: Pt being prepared for intubation. RT, RNs, REGISTERED NURSE MIDWIFE Braxton Armas at bedside. Time out performed. PT assessed. 100% fio2 administered via bag valve mask [id number] assisting via remote access camera and verifying [...] 2336-pt remains hypotensive neosynephrine 200mcg IV given [id number]-b-kuprpqgl contacted again for orders 2343-CXR done. BP improving 90's/50's [facility] PROGRESSon 01-23-2019 PROGRESS HNO ID: [id number] Author: Dalton Chambers Service: Critical Care Author [...] infusion fentaNYL Last Rate: 200 mcg/hr (01/23/19 5770) RESPIRATORY Mechanical Ventilation: Yes, on mechanical ventilation [...] Is Patient Clinically Ready to Transfer to [facility] or SDU?: No Discharge Planning: To be determined ASSESSMENT AND PLAN Neurology Myxedema coma (HCC) Assessment: H/O Hypothyroidism On Po Levothyroxine stopped taking as ran out of prescriptons PLAN: Endocrinology on board IV Levothyroxine Pulmonary Acute respiratory failure (HCC) Assessment: Intubated overnight PLAN: Lung protective ventilation, Wean as tolerated Infectious Disease Septicemia ([facility]) Assessment: Growing GNB in blood [...] 2229 -- 01/22/19 2230 pneumatic compression stockings (id,oh) 01/22/19 181 vte non-pharmacologic prophylaxis - none indicated (id,oh) 01/22/191814 activity - mobilize patient (id,me) VTE Prophylaxis: VTE prophylaxis appropriate Plan of care discussed with: Family/Significant Other: and RN SIGNATURE: Dalton Chambers MD PATIENT NAME: [place] Covington DATE: January 23, 2019 TIME: 12:02 PM PAGER/CONTACT #: [phone] ICU STAFF Note of Personal Involvement in [...] be documented and billed separately. [facility] PROGRESS HNO ID: [id number] Author: Horace Jose Rai Service: Critical Care [...] Levothyroxine and follow. Horace Jose Rai, MD, [facility] E-ICU Staff, Pulmonary and Critical Care Medicine [facility] Respiratory [place] Pager #[phone] [facility] PROGRESS HNO ID: [id number] Author: Gayatri Heart Service: eHospital Author Type: [...] 23 2019 TIME: 12:50 AM [facility] PROGRESS HNO ID: [id number] Author: Gayatri Heart Service: eHospital Author Type: [...] Collaboration: Plan of care discussed with ospital Batting Machine Operator Insulation SIGNATURE: Gayatri Heart APRN.CNP PATIENT NAME: [place] Coving[place] DATE: January 23 2019 TIME: 12:50 AM [facility] PROGRESS HNO ID: [id number] Author: Gayatri Heart Service: eHospital Author Type: [...] /DOUG Collaboration: Plan of care discussed with [facility] Batting Machine Operator Insulation SIGNATURE: Gayatri Heart APRN.CNP PATIENT NAME: [place] Covington DATE: January 22 2019 TIME: 11:26 PM Normal [facility] Phosphoruson 01-23-2019 Phosphate [Mass/Vol] 3.1 mg/dL Normal 2.7-4.8 [facility] Comment on above: Performed By: #### C BC, BMP, MG1, PHOS ####[facility] [address] [place] [address] Staph aureus PCRon 9 MRSA PCR Negative [facility] Comment on above: Performed By: #### C BCDIF, CMP #### [facility] [address] [place] [address] S aureus Spec Source Nasal [facility] Comment on above: Performed By: #### C BCDIF, CMP #### [facility] [address] [place] [address] Staph aureus PCR Negative [facility] Comment on above: Performed By: #### C BCDIF, CMP #### [facility] [address] [place] [address] MRSA PCR Negative [facility] Comment on above: Performed By: #### S APCR ####[facility] [address] [place] [phone] [place] [address] S aureus Spec Source Nasal [facility] Comment on above: Performed By: #### S APCR ####[facility] [address] [place] [phone] [place] [address] Staph aureus PCR Negative [facility] Comment on above: Performed By: #### S APCR ####[facility] [address] [place] [address]1300 [place] [phone] THERAPY NTon 01-23-2019 THERAPY NT HNO ID: [id number] Author: Shyanne De La RosaPt) Jerrod Service: Physical Therapy Author Type: Physical Therapist Type: Therapy (PT/OT/Speech/Resp) Filed: 01/23/2019 10:06 AM Note Text: PHYSICAL THERAPY MISSED VISIT SERVICE DATE: 01/23/2019 SERVICE TIME: 1003 to 1004 ROOM: [place] [address] Attempted Evaluation. Patient not seen due to Illness(Per nsg pt not appropriate for PT Eval at this time. Sedated. Intubated). SIGNATURE: Shyanne Elder PT PATIENT NAME: [place] Coving[place] DATE: January 23, 2019 TIME: 10:05 AM [facility] THERAPY NT HNO ID: [id number] Author: Drea De La RosaOt/LDemi Burciaga Service: Occupational Therapy Author Type: Occupational Therapist Type: Therapy (PT/OT/Speech/Resp) Filed: 01/23/2019 10:05 AM Note Text: OCCUPATIONAL THERAPY MISSED VISIT SERVICE DATE: 01/23/2019 SERVICE TIME: 1004 to 1004 ROOM: [place] [address] Attempted Evaluation. Patient not seen due to Illness. RNAlessandra, reported that pt is not appropriate for therapy at this time. Per pt chart, pt is sedated and intubated. Will re-attempt as schedule allows with pt appropriateness. SIGNATURE: Drea Burciaga OT/L PATIENT NAME: [place] Coving[place] DATE: January 23, 2019 TIME: 10:04 AM Normal [facility] Urine Cultureon 01-23-2019 Bacteria identified Cx Nom (U) Culture Result - 50,000 - <100,000 CFU/ml Normal urogenital cristel Normal [facility] Comment on above: Performed By: #### C BCDIF, CMP #### [facility] [address] [facility] [phone] Urine Strep Pneumo FOR WEST USE ONLYon 01-23-2019 Urine Strep Pneumo FOR WEST USE ONLY Negative Normal Negative [facility] Comment on above: Result Comment: Stre p Pneumo vaccine may cause a false positive Strep Pneumo antigen result in the 48 hours following vaccine. Performed By: #### U STPW ####[facility] [address] [place] [phone] XR ABDOMEN 1V SUPINEon 01-23 XR ABDOMEN [...] mildly distended small bowel loops. Consider follow-up. Rug Measurer: ALDO Transcribe Date/Time: Jan 23 2019 12:38P Dictated by : KASI YA MD This examination was interpreted and the report reviewed and electronically signed by: KASI YA MD on Jan 23 2019 12:41PM EST [id number] Normal [facility] XR ABDOMEN 1V SUPINE * * [...] Evaluate tube, line or lead position (accession [id number]), Evaluate tube, line or lead position (accession [id number]) MQ: XC2_5 Comparison: Same-day chest radiograph RESULT: [...] This could represent atelectasis, pneumonia, or aspiration. Rug Measurer: ALDO Transcribe Date/Time: Jan 22 2019 11:57P Dictated by : KARI VIVAS MD This examination was interpreted and the report reviewed and electronically signed by: KARI VIVAS MD on Jan 23 2019 12:03AM EST [id number] [facility] XR CHEST 1V FRONTAL PORTon 1 [...] Evaluate tube, line or lead position (accession [id number]), Evaluate tube, line or lead position (accession [id number]) MQ: XC2_5 Comparison: Same-day chest radiograph RESULT: [...] This could represent atelectasis, pneumonia, or aspiration. Rug Measurer: PSCB Transcribe Date/Time: Jan 22 2019 11:57P Dictated by : KARI VIVAS MD This examination was interpreted and the report reviewed and electronically signed by: KARI VIVAS MD on Jan 23 2019 12:03AM EST [id number] [facility] ALLIED HEALTHon 01-22-2019 ALLIED HEALTH HNO ID: [id number] Author: Cathi (Ct) DAVID Savage Service: ? Author Type: Clinical Golf Caddie Type: Allied Health Filed: 01/22/2019 12:47 PM [...] January 22, 2019 12:46 PM Normal [facility] Blood Cultureon 01-22-2019 Bacteria identified Cx [...] to and read back by:Criss [place] [id number] Chris --> ABNORMAL ALERT Klebsiella oxytoca detected by microarray. Confirmation and --> ABNORMAL ALERT susceptibility testing to follow.(*), Negative for Acinetobacter spp. --> ABNORMAL ALERT and Pseudomonas aeruginosa by --> ABNORMAL ALERT microarray.. Called to and read back by: Corie Norton at [facility], on --> ABNORMAL ALERT 01.22.19 at [...] F Cefazolin SUSCEPTIBLE F Critically abnormal [facility] Comment on above: Performed By: #### T SH #### [facility] [address] [facility] [phone] Bacteria identified Cx Nom (Bld) Culture Result - No growth 5 days Normal [facility] Comment on above: Performed By: #### B LCUL ####[facility] [address] [place], [place] [phone] CBC and Differentialon 01-22 Abs Baso 0.06 k/uL Normal <0.11 [facility] Comment on above: Performed By: #### C BCDIF, CMP #### [facility] [address] Abs [place] 0.44 k/uL Normal <0.87 [facility] Comment on above: Performed By: #### C BCDIF, CMP #### [facility] [address] [place] [address] Abs Neut 2.49 k/uL Normal 1.45-7.50 [facility] Comment on above: Performed By: #### C BCDIF, CMP #### [facility] [address] [place] [address] Basophils/100 WBC (Bld) 1.1 % Normal [facility] Comment on above: Performed By: #### C BCDIF, CMP #### [facility] [address] [place] [address] Eosinophils (Bld) [#/Vol] 0.26 10*3/uL Normal <0.46 [facility] Comment on above: Performed By: #### C BCDIF, CMP #### [facility] [address] [place] [address] Eosinophils/100 WBC (Bld) 4.8 % Normal [facility] Comment on above: Performed By: #### C BCDIF, CMP #### [facility] [address] [place] [address] Erythrocyte distribution width (RBC) [Ratio] 18.9 % High 11.5-15.0 [facility] Comment on above: Performed By: #### C BCDIF, CMP #### [facility] [address] [place] [address] Hematocrit (Bld) [Volume fraction] 44.0 % Normal 39.0-51.0 [facility] Comment on above: Performed By: #### C BCDIF, CMP #### [facility] [address] [place] [address] Hemoglobin (Bld) [Mass/Vol] 13.8 g/dL Normal 13.0-17.0 [facility] Comment on above: Performed By: #### C BCDIF, CMP #### [facility] [address] [place] [address] Lymphocytes (Bld) [#/Vol] 2.17 10*3/uL Normal 1.00-4.00 [facility] Comment on above: Performed By: #### C BCDIF, CMP #### [facility] [address] [place] [phone] Lymphocytes/100 WBC (Bld) 40.0 % Normal [facility] Comment on above: Performed By: #### C BCDIF, CMP #### [facility] [address]5160 MCH (RBC) [Entitic mass] 29.6 pG Normal 26.0-34.0 [facility] Comment on above: Performed By: #### C BCDIF, CMP #### [facility] [address] [place] [address] MCHC (RBC) [Mass/Vol] 31.4 g/dL Normal 30.5-36.0 [facility] Comment on above: Performed By: #### C BCDIF, CMP #### [facility] [address] [place] [address] MCV (RBC) [Entitic vol] 94.4 fL Normal 80.0-100.0 [facility] Comment on above: Performed By: #### C BCDIF, CMP #### [facility] [address] Monocytes/100 WBC (Bld) 8.1 % Normal [facility] Comment on above: Performed By: #### C BCDIF, CMP #### [facility] [address] Neutrophils/100 WBC (Bld) 46.0 % Normal [facility] Comment on above: Performed By: #### C BCDIF, CMP #### [facility] [address] [place] [phone] Platelet mean volume (Bld) [Entitic vol] 9.6 fL Normal 9.0-12.7 [facility] Comment on above: Performed By: #### C BCDIF, CMP #### [facility] [address] [place] [phone] Platelets (Bld) [#/Vol] 389 10*3/uL Normal 150-400 [facility] Comment on above: Performed By: #### C BCDIF, CMP #### [facility] [address] [place] [address] RBC (Bld) [#/Vol] 4.66 10*6/uL Normal 4.20-6.00 [facility] Comment on above: Performed By: #### C BCDIF, CMP #### [facility] [address] [place] [address] WBC (Bld) [#/Vol] 5.42 10*3/uL Normal 3.70-11.00 [facility] Comment on above: Performed By: #### C BCDIF, CMP #### [facility] [address] [place] [address] Comp Metabolic Panelon 01-22 Albumin [Mass/Vol] 4.1 g/dL Normal 3.9-4.9 [facility] Comment on above: Performed By: #### C BCDIF, CMP #### [facility] [address] [place] [address] ALP [Catalytic activity/Vol] 80 U/L Normal 38-113 [facility] Comment on above: Performed By: #### C BCDIF, CMP #### [facility] [address] [place] [address] ALT [Catalytic activity/Vol] 23 U/L Normal 10-54 [facility] Comment on above: Performed By: #### C BCDIF, CMP #### [facility] [address] [place] [address] Anion gap [Moles/Vol] 8 mmol/L Low 9-18 [facility] Comment on above: Performed By: #### C BCDIF, CMP #### [facility] [address] [place] [address] AST [Catalytic activity/Vol] 53 U/L High 14-40 [facility] Comment on above: Performed By: #### C BCDIF, CMP #### [facility] [address] [place] [address] Bilirubin [Mass/Vol] 0.2 mg/dL Normal 0.2-1.3 [facility] Comment on above: Performed By: #### C BCDIF, CMP #### [facility] [address] [place] [address] Calcium [Mass/Vol] 9.9 mg/dL Normal 8.5-10.2 [facility] Comment on above: Performed By: #### C BCDIF, CMP #### [facility] [address] [place] [phone] Chloride [Moles/Vol] 103 mmol/L Normal 97-105 [facility] Comment on above: Performed By: #### C BCDIF, CMP #### [facility] [address] CO2 [Moles/Vol] 29 mmol/L Normal 22-30 [facility] Comment on above: Performed By: #### C BCDIF, CMP #### [facility] [address] [place] [phone] Creatinine [Mass/Vol] 0.90 mg/dL Normal 0.73-1.22 [facility] Comment on above: Performed By: #### C BCDIF, CMP #### [facility] [address] [place] [address] eGFR- Amer. >60 Normal [facility] Comment on above: Performed By: #### C BCDIF, CMP #### [facility] [address] [place] [phone] GFR/1.73 sq M predicted among non-blacks MDRD (S/P/Bld) [Vol rate/Area] mL/min/{1.73_m2} Normal [facility] Comment on above: Result Comment: eGFR [...] By: #### C BCDIF, CMP #### [facility] [address] [facility] [phone] Glucose [Mass/Vol] 87 mg/dL Normal 74-99 [facility] Comment on above: Result Comment: The [place] [employer] (ADA) provides guidance for cutoff [...] Standards of Medical Care in Diabetes 2016, [place] [employer]. Diabetes Care. 2016.39(Suppl 1). Performed By: #### C BCDIF, CMP #### [facility] [address] [place] [address] Potassium [Moles/Vol] 3.6 mmol/L Low 3.7-5.1 [facility] Comment on above: Performed By: #### C BCDIF, CMP #### [facility] [address] [place] [address] Protein [Mass/Vol] 7.8 g/dL Normal 6.3-8.0 [facility] Comment on above: Performed By: #### C BCDIF, CMP #### [facility] [address] [place] [address] Sodium [Moles/Vol] 140 mmol/L Normal 136-144 [facility] Comment on above: Performed By: #### C BCDIF, CMP #### [facility] [address] [place] [address] Urea nitrogen [Mass/Vol] 10 mg/dL Normal 9-24 [facility] Comment on above: Performed By: #### C BCDIF, CMP #### [facility] [address] [place] [address] ECG COMPLETEon 01-22-2019 ECG COMPLETE NAME : JORGE COVINGTON PID : [id number] : 1955 Gender : Male Race : ORD : [id number] Procedure Date : Jan 22 2019 12:21:31 Edit Date : Jan 22 2019 16:35:25 Diagnosis:SINUS BRADYCARDIA LOW VOLTAGE QRS NONSPECIFIC T WAVE ABNORMALITY ABNORMAL ECG 1422 no STEMI Confirmed by DO KINGSTON MICHELLE ([id number]), book editor CITLALY WOO ([id number]) on 01/22/2019 4:35:24 PM Systolic BP : 90 mmHg Diastolic BP : 51 mmHg Ventricular Rate : 57 BPM Atrial Rate : 57 BPM P-R Interval : 194 ms QRS Duration : 88 ms Q-T Interval : 384 ms QTC Calculation(Bazett) : 373 ms P Dragoon : 76 degrees R Dragoon : 53 degrees T Dragoon : 208 degrees Test Reason : Chest Pain Location : 1 : ER 04 Overread By : DO KINGSTON MICHELLE Edited By : CITLALY WOO Referred By : System,System Acquired by : System,System [facility] ED NOTEon 01-22-2019 ED NOTE HNO ID: [id number] Author: Annabel Couch RN Service: ? Author Type: Registered Nurse Type: ED Notes Filed: 01/22/2019 5:02 PM Note Text: Report called to Marjorie Rn. Patient in stable condition upon transfer to ICU [facility] ED NOTE HNO ID: [id number] Author: Annabel Couch RN Service: ? Author Type: Registered Nurse Type: ED Notes Filed: 01/22/2019 4:22 PM Note Text: Roofing Tile Sorter called icu will be able to take report shortly on patient. Asked to hold patient in ED [facility] ED NOTE HNO ID: [id number] Author: Annabel Couch RN Service: ? Author Type: Registered Nurse Type: ED Notes Filed: 01/22/2019 12:22 PM Note Text: Bed: ED-04 Expected date: Expected time: Means of arrival: Comments: [place] ED NOTE HNO ID: [id number] Author: Annabel Couch RN Service: ? Author Type: Registered Nurse Type: ED Notes Filed: 01/22/2019 12:13 PM Note Text: Patient presents to ED with mental status change [facility] ED PROV NOTEon 01-22-2019 ED PROV NOTE HNO ID: [id number] Author: Yue Kingston DO Service: Emergency Medicine [...] Per EMS, the patient had a negative Charlemont stroke scale. PAST MEDICAL HISTORY Diagnosis Date [...] speech. He knows he is at [facility]. He can tell me his birthday. [...] to ICU. I also spoke with the leak inspector who is aware of the patient's admission. The attending who evaluated and managed this patient was Yue Kingston . HANDP obtained from pt's . Case was discussed with Dr. Trish Ozuna. Additional Tests or Interventions: ECG EKG INTERPRETATION: Ordered and Reviewed Rhythm: Sinus bradycardia Rate: 57 Dragoon: Normal axis Intervals: Normal UT interval QRS Complex: Normal ST Segment: Normal [...] of the following condition(s): respiratory impairment and SENIOR ARCHITECT/DESIGN MANAGER impairment, which the patient had and/or has high probability of suddenly developing. The patient received IV fluids, oxygen and consultation with (BIPAP) ICU during the time that critical care was provided. Critical care time excludes separately billed procedures. Critical care time documentation entered by Yue Kingston DO. SIGNATURE: DO Yue Montanez DO 01/22/19 1453 Normal [facility] HOSPon 01-22-2019 HOSP Patient:Cruz Covington MRN: [...] [M54.5, G89.29] COPD (chronic obstructive pulmonary disease) ([facility]) [J44.9] Hypothyroidism [E03.9] GERD (gastroesophageal reflux disease) [K21.9] Overactive bladder [N32.81] Septicemia due to Klebsiella pneumoniae ([facility]) [A41.4] Allergies: Dust Mold Spores [...] Per EMS, the patient had a negative Charlemont stroke scale. PAST MEDICAL HISTORY Diagnosis Date [...] speech. He knows he is at [facility]. He can tell me his birthday. [...] to ICU. I also spoke with the leak inspector who is aware of the patient's admission. The attending who evaluated and managed this patient was Yue Kingston . HANDP obtained from pt's . Case was discussed with Dr. Trish Ozuna. Additional Tests or Interventions: ECG EKG INTERPRETATION: Ordered and Reviewed Rhythm: Sinus bradycardia Rate: 57 Dragoon: Normal axis Intervals: Normal UT interval QRS Complex: Normal ST Segment: Normal [...] of the following condition(s): respiratory impairment and SENIOR ARCHITECT/DESIGN MANAGER impairment, which the patient had and/or has [...] Couch RN, RN 01/22/2019 4:22 PM Signed Roofing Tile Sorter called icu will be able to take [...] and Timing of last dose, Pharmacy records: [facility] Pharmacy and Prescription bottles Medication Nonadherence Identified: [...] Itching, Other: See Comments Sneezing Preferred Pharmacy: [facility] Pharmacy Current SUPPLIER QUALITY MANAGER Medications: Prior to Admission medications as of 01/22/19 2204 Medication Sig Last Dose Taking acetaminophen (ARTHRITIS [...] Patient Name: Jorge Covington Patient Location: [facility] -1 Daily Note to ICU [...] Collaboration: Plan of care discussed with ospital Batting Machine Operator Insulation SIGNATURE: Gayatri Heart APRN.CNP PATIENT NAME: Jorge Covington DATE: January 22 2019 TIME: 11:26 PM Rosalinda Narayan, RN, RN 01/22/2019 11:44 PM Signed Pt being prepared for intubation. RT, RNs, KAE Armas at bedside. Time out performed. PT assessed. 100% fio2 administered via bag valve mask [id number] assisting via remote access camera and verifying [...] 2336-pt remains hypotensive neosynephrine 200mcg IV given [id number] contacted again for orders 2343-CXR done. BP improving 90's/50's Dank Armas APRN.CRNA 01/22/2019 11:43 PM Signed INTUBATION PROCEDURE NOTE PROCEDURE DATE: January 22, 2019 PROCEDURE START TIME: 0 PROCEDURE: OROTRACHEAL INTUBATION PRIMARY PROCEDURALIST: Dank Armas APRN.CRNA GANG SAWYER(S): None INFORMED CONSENT: Due to emergent situation [...] NON-VIOLENT PATIENT NAME: Jorge Covington PATIENT LOCATION: [place] [address] [address] The patient demonstrates as evidenced by the [...] NON-VIOLENT PATIENT NAME: Jorge Covington PATIENT LOCATION: [place] [address]/[facility] The patient demonstrates as evidenced by the [...] Collaboration: Plan of care discussed with eHospital Batting Machine Operator Insulation SIGNATURE: Gayatri Heart APRN.CNP PATIENT NAME: Jorge Covington DATE: January 23 2019 TIME: 12:50 AM Horace oJse Rai, MD 01/23/2019 1:39 AM Signed Plan [...] Levothyroxine and follow. Horace Jose Rai, MD, [facility] E-ICU Staff, Pulmonary and Critical Care Medicine [facility] Respiratory [place] Pager #[phone] Shirley Romo DO 01/23/2019 8:27 AM Signed [...] HOURS 01/22/192228 -- 01/22/192229 pneumatic compression stockings (id,oh) 01/22/191814 vte non-pharmacologic prophylaxis - none indicated (id,oh) 01/22/191814 activity - mobilize patient (id,oh) VTE Prophylaxis: VTE prophylaxis appropriate SIGNATURE: Shirley Romo, DO PATIENT NAME: Jorge Covington DATE: January 23, 2019 TIME: 8:20 AM PAGER/CONTACT #: [phone] Drea Burciaga OT/Eliseo 01/23/2019 10:05 AM Signed OCCUPATIONAL THERAPY MISSED VISIT SERVICE DATE: 01/23/2019 SERVICE TIME: 1004 to 1004 ROOM: [place] [address] Attempted Evaluation. Patient not seen due to [...] 01/23/2019 SERVICE TIME: 1003 to 1004 ROOM: [place] [address] Attempted Evaluation. Patient not seen due to [...] is in agreement with current management plan. [facility] STAFF PHYSICIAN NOTE OF PERSONAL INVOLVEMENT IN [...] per chart review. On arrival to the [place] ED, his O2 saturation on room air [...] 1.2 1.2 Christina Sheikh MD Staff, Respiratory [place] [facility] Pager #[phone] Previous Version Rossi Farmer MD 01/23/2019 12:24 [...] -- IV lt4 is being ordered from [facility] and should arrive by 1 [...] assisted care facility after his discharge from [facility] for admission of intradural cyst [...] (LEVOPHED) 0.5-50 mcg/min INTRAVENOUS CONTINUOUS Gayatri E (Land Classifier) Sly - DOPamine iv infusion 800 mg/250 mL D5W 2.5-20 mcg/kg/min INTRAVENOUS CONTINUOUS Gayatri E (Land Classifier) Sly Stopped at 01/23/19 0324 - levothyroxine [...] Units SUBCUTANEOUS q 12 H Gayatri E (Land Classifier) Sly 5,000 Units at 01/23/19 0850 - cefTRIAXone 1 g in D5W 100 mL MB+ (ROCEPHIN) 1 g INTRAVENOUS q 24 H Gayatri E (Land Classifier) Sly 200 mL/hr at 01/23/19 0848 1 g at 01/23/19 0848 - propofol infusion (DIPRIVAN) 5-60 mcg/kg/min INTRAVENOUS CONTINUOUS Gayatri E (Land Classifier) Sly - fentaNYL 20 mcg/mL iv infusion in NaCl 0.9% 100 mL 25-250 mcg/hr INTRAVENOUS CONTINUOUS Gayatri E (Land Classifier) Sly 10 mL/hr at 01/23/19 0947 200 [...] file Gets together: Not on file Attends jehovah's witness service: Not on file Active member of [...] Fingerstick glucose readings reviewed. Rossi Farmer MD [facility] Endocrinology and Metabolism [place] [facility] January 23, 2019 11:20 AM Previous [...] infusion fentaNYL Last Rate: 200 mcg/hr (01/23/19 9231) RESPIRATORY Mechanical Ventilation: Yes, on mechanical ventilation [...] Is Patient Clinically Ready to Transfer to [facility] or SDU?: No Discharge Planning: To [...] infusion fentaNYL Last Rate: 200 mcg/hr (01/23/19 8951) RESPIRATORY Mechanical Ventilation: Yes, on mechanical ventilation [...] Is Patient Clinically Ready to Transfer to [facility] or SDU?: No Discharge Planning: To be determined ASSESSMENT AND PLAN Neurology Myxedema coma (HCC) Assessment: H/O Hypothyroidism On Po Levothyroxine stopped taking as ran out of prescriptons PLAN: Endocrinology on board IV Levothyroxine Pulmonary Acute respiratory failure (HCC) Assessment: Intubated overnight PLAN: Lung protective ventilation, Wean as tolerated Infectious Disease Septicemia ([facility]) Assessment: Growing GNB in blood [...] 2229 -- 01/22/19 223 pneumatic compression stockings (id,me) 01/22/191814 vte non-pharmacologic prophylaxis - none indicated (id,me) 01/22/191814 activity - mobilize patient ([place]) VTE Prophylaxis: VTE prophylaxis appropriate Plan of care discussed with: Family/Significant Other: and RN SIGNATURE: Dalton Chambers MD PATIENT NAME: Jorge Covington DATE: January 23, 2019 TIME: 12:02 PM PAGER/CONTACT #: [phone] ICU STAFF Note of Personal Involvement in [...] NON-VIOLENT PATIENT NAME: Jorge Covington PATIENT LOCATION: [place] [address]/[facility] -1 The patient demonstrates Attempting to Remove [...] HOURS 01/22/192228 -- 01/22/192229 pneumatic compression stockings (id,oh) 01/22/191814 vte non-pharmacologic prophylaxis - none indicated (id,me) 01/22/191814 activity - mobilize patient (id,me) VTE Prophylaxis: VTE prophylaxis appropriate SIGNATURE: Shirley Romo DO PATIENT NAME: Jorge Covington DATE: January 24, 2019 TIME: 9:38 AM PAGER/CONTACT #: [phone] Annie Hare, CUAUHTEMOC 01/24/2019 11:48 AM Addendum PHYSICAL THERAPY MISSED VISIT SERVICE DATE: 01/24/2019 SERVICE TIME: 1023 to 1023 ROOM: [place] [address] Attempted Evaluation. Patient not seen due to [...] Units SUBCUTANEOUS q 12 H Gayatri E (Land Classifier) Sly 5,000 Units at 01/24/19 0957 - cefTRIAXone 1 g in D5W 100 mL MB+ (ROCEPHIN) 1 g INTRAVENOUS q 24 H Gayatri E (Land Classifier) Sly 200 mL/hr at 01/24/19 0955 1 g at 01/24/19 0955 - propofol infusion (DIPRIVAN) 5-60 mcg/kg/min INTRAVENOUS CONTINUOUS Gayatri E (Land Classifier) Sly CURRENT ALLERGIES: Allergies As of Date: [...] Justin Davila MD 01/24/2019 11:19 AM Signed [facility] PULMONARY MEDICINE IN-PATIENT CONSULT PROGRESS NOTE [...] pathology data. Justin Davila MD Staff, Respiratory [place] [facility] Pager #[phone] SUBJECTIVE CHIEF COMPLAINT: Respiratory failure INTERVAL HPI:Jorge [...] 24, 2019 TIME: 11:06 AM PAGER/CONTACT #: [phone] RT Bonnie, Alerts 01/24/2019 11:14 AM Signed Radiology Service Progress [...] the A/P section below. Please refer to [facility] for list of inpatient medications. VITAL [...] Is Patient Clinically Ready to Transfer to [facility] or SDU?: No Discharge Planning: To be determined Camlia Rizvi MD, MD 01/24/2019 11:37 AM Written [...] the A/P section below. Please refer to [facility] for list of inpatient medications. VITAL SIGNS: [...] Is Patient Clinically Ready to Transfer to [facility] or SDU?: No Discharge Planning: To be determined ASSESSMENT AND PLAN Active Hospital Problems as of 01/24/2019 Noted - Resolved Neurology Myxedema coma ([facility]) 01/23/2019 - Present Current Assessment AND Plan Assessment: H/O Hypothyroidism On Po Levothyroxine stopped taking as ran out of prescriptons PLAN: Endocrinology on board IV Levothyroxine Daily thyroid studies Pulmonary COPD (chronic obstructive pulmonary disease) ([facility]) 06/08/2018 - Present Acute respiratory failure ([facility]) 01/22/2019 - Present Current Assessment [...] HOURS 01/22/192228 -- 01/22/192229 pneumatic compression stockings (id,oh) 01/22/191814 vte non-pharmacologic prophylaxis - none indicated (id,oh) 01/22/191814 activity - mobilize patient (id,me) VTE Prophylaxis: VTE prophylaxis appropriate Plan of care discussed with: Provider, RN, Patient SIGNATURE: Camila Rizvi MD PATIENT NAME: Jorge Covington DATE: January 24, 2019 TIME: 11:40 AM PAGER/CONTACT #: [phone] ICU STAFF PHYSICIAN NOTE OF PERSONAL INVOLVEMENT [...] Current Advance Directive: Health Care Power of Rock Worker In Chart: Yes Up To Date and [...] Wheelchair Has the Patient Been in a Alf Facility in the Past 30 days? No SOCIAL: Living Arrangement: Home Lives With: Spouse Financial Resources: Disabled Primary Contact: Extended Emergency Contact Information Primary Emergency Contact: Dasia Covington Address: [address] [place] [address] Mobile Relation: Spouse Supportive: Yes Other Important [...] 0 I feel financially burdened by my fgw-or-szxdot expenses for my prescription medication: Disagree completely [...] indicated POTENTIAL TRANSITION PLANS Home Home Care Alf Facility/Intermediate Care Facility Pt is sedated and [...] spouse requested OZ call JAZZY Ewing at [phone] to see which agency she works for [...] 24, 2019 TIME: 11:59 AM PAGER/CONTACT #: [phone], LD 01/24/2019 12:22 PM [...] ( (more content not included)... Normal [facility] Mycoplasma IgM ABon 01-23-20 19 M. pneumo IgM, Qual Negative Normal Negative [facility] Comment on above: Result Comment: No s ignificant amount of IgM antibodies to M. pneumoniae detected. A nonreactive result indicates no current/previous infection. Performed By: #### N TBNP #### [facility] [address] [place] [address] Mycoplasma IgM AB 0.45 OD Ratio Normal [facility] Comment on above: Result Comment: Inde x Values/OD Ratios are interpreted as follows: Negative: < or = 0.90 Equivocal: 0.91 to 1.09 Positive: > or = 1.10 The magnitude of the measured result above the cutoff is not indicative of the total amount of antibody present and cannot be correlated to IFA titers. Performed By: #### N TBNP #### [facility] [address] [place] [address] NT Pro BNPon 01-22-2019 PRO B Natr Peptide 32 pg/mL Normal <125 [facility] Comment on above: Performed By: #### N TBNP #### [facility] [address] [place] [address] NURSING PROGon 01-22-2019 NURSING PROG HNO ID: [id number] Author: Marjorie (Rn) JAZZY Zavaleta Service: Nursing Author Type: Registered Nurse Type: Nursing Progress Note Filed: 01/22/2019 9:15 PM Note Text: Nursing Progress Note Patient Name: Jorge Covington Patient Location: [facility] -1 Daily Note to ICU 1 c monitor and bipap per cart from ER This note was completed by: Marjorie Zavaleta RN [facility] PLAN OF CAREon 01-22-2019 PLAN OF CARE HNO ID: [id number] Author: Justen Guerrero (Pharmacist) Service: Pharmacy Author Type: Pharmacist Type: Plan of Care Filed: 01/22/2019 6:35 PM Note Text: MEDICATION HISTORY Patient Name:.Jorge Covington : 1955 Source of history:Family: Reliability of source: Appears reliable, clearly identified: Medication name, Medication dose, Medication route, Medication frequency and Timing of last dose, Pharmacy records: [facility] Pharmacy and Prescription bottles Medication Nonadherence Identified: [...] Itching, Other: See Comments Sneezing Preferred Pharmacy: [facility] Pharmacy Current SUPPLIER QUALITY MANAGER Medications: Prior to Admission medications as of [...] January 22, 2019 6:31 PM Normal [facility] TSHon 01-22-2019 TSH Qn 92.240 uU/mL High 0.400-5.500 [facility] Comment on above: Performed By: #### T SH #### [facility] [address] [facility] [phone] Urinalysison 01-22-2019 Bilirubin, Urine Small Critically abnormal Negative [facility] Comment on above: Result Comment: Sugg est correlation with clinical findings and serum bilirubin if clinically indicated. Performed By: #### U A UAMIC ####[facility] [address] [phone] Clarity (U) Slightly Hazy Critically abnormal Clear [facility] Comment on above: Performed By: #### U A, UAMIC ####[facility] [address]17 [phone] Color (U) Yellow Normal Yellow [facility] Comment on above: Performed By: #### U A, UAMIC ####[facility] [address] [place] [address] Glucose Ql (U) Negative Normal Negative [facility] Comment on above: Performed By: #### U A, UAMIC ####[facility] [address] [place] [address] Hemoglobin/Blood,Ur Trace Critically abnormal Negative [facility] Comment on above: Performed By: #### U A, UAMIC ####[facility] [address] [place] [address] Ketones Ql (U) Negative Normal Negative [facility] Comment on above: Performed By: #### U A, UAMIC ####[facility] [address] [place] [address] Leukest Negative Normal Negative [facility] Comment on above: Performed By: #### U A, UAMIC ####[place] [address] Nitrite Ql (U) Negative Normal Negative [facility] Comment on above: Performed By: #### U A, UAMIC ####[facility] [address] [place] [address] pH (Bld) 6.0 Normal 5.0-8.0 [facility] Comment on above: Performed By: #### U A, UAMIC ####[place] [address] Protein (U) [Mass/Vol] Negative Normal Negative [facility] Comment on above: Performed By: #### U A, UAMIC ####[facility] [address] [place] [address] Specific [place], Ur >1.029 High 1.001-1.029 [facility] Comment on above: Performed By: #### U A, UAMIC ####[place] [address] Urobilinogen Qn (U) 0.2 Normal 0.2-1.0 [facility] Comment on above: Performed By: #### U A, UAMIC ####[facility] [address] [place] [address] Urine Microscopic (FOR LAB U SE ONLY)on 01-22-2019 Bacteria LM.HPF (Urine sed) [#/Area] Many Critically abnormal 0 [facility] Comment on above: Performed By: #### U A, UAMIC ####[facility] [address] [place] [address] Cast SEE COMMENT Normal 0 [facility] Comment on above: Result Comment: 0 Performed By: #### U A, UAMIC ####[facility] [address] [place] [address] Epithelial cells LM.HPF (Urine sed) [#/Area] SEE COMMENT Normal [facility] Comment on above: Result Comment: 0-5 Squamous Epithelial Cells Performed By: #### U A, UAMIC ####[facility] [address] [place] [address] RBC (U) [#/Vol] 3-5 Critically abnormal 0-3 [facility] Comment on above: Performed By: #### U A, UAMIC ####[facility] [address] [place] [address] WBC (Bld) [#/Vol] 0-5 Normal 0-5 [facility] Comment on above: Performed By: #### U A, UAMIC ####[facility] [address] [place] [address] XR CHEST 1V FRONTAL PORTon 1 XR [...] is recommended in 4-6 weeks, indeterminate appearance. Rug Measurer: PSCB Transcribe Date/Time: Jan 22 2019 12:53P Dictated by : GARRETT VIGIL MD This examination was interpreted and the report reviewed and electronically signed by: GARRETT VIGIL MD on Jan 22 2019 12:56PM EST [id number] N [facility] 06-22-2018 CNOV Office Visit (AKURFL ) JORGE COVINGTON ([id number]) 1955 M Date Time Provider Department 06/22/18 2:00 PM PRAVIN PEDRAZA During your visit today, we recorded the following information about you: Weight Height 93.4 kg 1.676 m Pravin Pedraza DO, MBA 06/22/2018 2:57 PM Signed ?? [facility] Urological and Kidney [facility] [facility] UROLOGY LOCATION: [address] [place] [address] NEW PATIENT HISTORY AND PHYSICAL EXAM PATIENT [...] place Complex hx, no records Here from jail Failed voiding trial Needs full evaluation 1-Duration: [...] 06/13/2018 7.0 4.5 - 8.0 Final Specific [place], Ur Date Value Ref Range Status 06/13/2018 [...] Date Reviewed: 06/22/2018 Reviewed by: Sharmila Jang OBGYN HOSPITALIST PHYSICIAN - Fully Assessed Reason for Visit: Prostate [...] Status:Closed by PRAVIN PEDRAZA on 06/22/18 Normal [facility] PROGRESSon 06-22-2018 Protein mass conc HNO ID: [id number] Author: Pravin Pedraza Service: ? Author Type: Physician Type: Progress Notes Filed: 06/22/2018 2:57 PM Note Text: ?? [facility] Urological and Kidney [facility] [facility] UROLOGY LOCATION: [address] [place] [address] NEW PATIENT HISTORY AND PHYSICAL EXAM PATIENT [...] place Complex hx, no records Here from jail Failed voiding trial Needs full evaluation 1-Duration: [...] 06/13/2018 7.0 4.5 - 8.0 Final Specific [place], Ur Date Value Ref Range Status 06/13/2018 [...] MBA Letter to: Brian Cardona MD Normal [facility] Bacteria identified Anaer cx Nom (Unsp spec) Anaerobic Culture Clostridium perfringens [facility] Work Phone: Bacteria identified Cx Nom ( Wound) Wound Culture Escherichia coli [facility] Work Phone: Wound Culture Staphylococcus aureus [facility] Work Phone: Gram stain for investigation of transfusion reaction Microscopic observation Gram stain Nom (Unsp spec) [facility] Work Phone: Vital Signs Date Time Vital Sign Value Performing Clinician Faci lity 01-20-2025 15:58-0400 Inhaled oxygen flow rate 2 L/min Dr. Brian Cardona MD [facility] 01-20-2025 12:37-0400 SaO2% (BldA) [Mass fraction] 94 % Dr. Brian Cardona MD [facility] 01-20-2025 11:51-0400 Body temperature 97.5 [degF] Dr. Brian Cardona MD [facility] 01-20-2025 11:51-0400 Diastolic blood pressure 67 mm[Hg] Dr. Brian Cardona MD [facility] 01-20-2025 11:51-0400 Heart rate 87 /min Dr. Brian Cardona MD [facility] [facility] 01-20-2025 11:51-0400 Respiratory rate 18 /min Dr. Brian Cardona MD [facility] 01-20-2025 11:51-0400 Systolic blood pressure 121 mm[Hg] Dr. Brian Cardona MD [facility] 01-17-2025 16:40-0400 Body height 167.[address] Brian Cardona MD [facility] 01-17-2025 16:40-0400 Body weight 104.[address] Brian Cardona MD [facility] 01-17-2025 13:21-0400 Body mass index (BMI) [Ratio] 37.3 kg/m2 Dr. Brian Cardona MD [facility] 12-26-2024 15:13-0400 Body temperature 97.8 [degF] Dr. Brian Cardona MD [facility] 12-26-2024 15:13-0400 Diastolic blood pressure 89 mm[Hg] Dr. Brian Cardona MD [facility] 12-26-2024 15:13-0400 Heart rate 100 /min Dr. Brian Cardona MD [facility] 12-26-2024 15:13-0400 Respiratory rate 16 /min Dr. Brian Cardona MD [facility] 12-26-2024 15:13-0400 Systolic blood pressure 159 mm[Hg] Dr. Brian Cardona MD [facility] 11-15-2024 09:25-0400 Body height 167.64 cm Cristy Bearden PA Work Phone: [facility] 11-14-2024 15:33-0400 Body temperature 97.4 [degF] Cristy Bearden PA Work Phone: [facility] 11-14-2024 15:33-0400 Diastolic blood pressure 97 mm[Hg] Cristy Bearden PA Work Phone: [facility] 11-14-2024 15:33-0400 Heart rate 81 /min Cristy Bearden PA Work Phone: [facility] 11-14-2024 15:33-0400 Respiratory rate 16 /min Cristy Bearden PA Work Phone: [facility] 11-14-2024 15:33-0400 Systolic blood pressure 147 mm[Hg] Cristy Bearden PA Work Phone: [facility] 10-03-2024 16:06-0400 Body height 167.[address] Brian Cardona MD [facility] 10-03-2024 16:06-0400 Body weight 100.[address] Brian Cardona MD [facility] 10-03-2024 16:03-0400 Body temperature 97.3 [degF] Dr. Brina Cardona MD [facility] 10-03-2024 16:03-0400 Diastolic blood pressure 84 mm[Hg] Dr. Brian Cardona MD [facility] 10-03-2024 16:03-0400 Heart rate 86 /min Dr. Brian Cardona MD [facility] 10-03-2024 16:03-0400 Respiratory rate 18 /min Dr. Brian Cardona MD [facility] 10-03-2024 16:03-0400 Systolic blood pressure 127 mm[Hg] Dr. Brian Cardona MD [facility] 08-29-2024 16:27-0400 Body height 167.[address] Brian Cardona MD [facility] 08-29-2024 16:27-0400 Body weight 100.[address] Brian Cardona MD [facility] 08-29-2024 14:52-0400 Body mass index (BMI) [Ratio] 35.5 kg/m2 Dr. Brian Cardona MD [facility] 08-29-2024 14:52-0400 Body temperature 97.7 [degF] Dr. Brian Cardona MD [facility] 08-29-2024 14:52-0400 Diastolic blood pressure 116 mm[Hg] Dr. Brian Cardona MD [facility] 08-29-2024 14:52-0400 Heart rate 78 /min Dr. Brian Cardona MD [facility] 08-29-2024 14:52-0400 Respiratory rate 18 /min Dr. Brian Cardona MD [facility] 08-29-2024 14:52-0400 Systolic blood pressure 192 mm[Hg] Dr. Brian Cardona MD [facility] 08-07-2024 21:07-0400 Diastolic blood pressure 74 mm[Hg] Dr. Brian Cardona MD [facility] 08-07-2024 21:07-0400 Heart rate 80 /min Dr. Brian Cardona MD [facility] 08-07-2024 21:07-0400 Respiratory rate 18 /min Dr. Brian Cardona MD [facility] 08-07-2024 21:07-0400 SaO2% (BldA) [Mass fraction] 96 % Dr. Brian Cardona MD [facility] 08-07-2024 21:07-0400 Systolic blood pressure 140 mm[Hg] Dr. Brian Cardona MD [facility] 08-07-2024 20:56-0400 Body temperature 97.9 [degF] Dr. Brian Cardona MD [facility] 08-07-2024 17:50-0400 Body height 167.[address] Brian Cardona MD [facility] 08-07-2024 17:50-0400 Body mass index (BMI) [Ratio] 35.9 kg/m2 Dr. Brian Cardona MD [facility] 08-07-2024 17:50-0400 Body weight 100.[address] Brian Cardona MD [facility] 08-02-2024 17:11-0400 Diastolic blood pressure 73 mm[Hg] Cristy Bearden PA Work Phone: [facility] 08-02-2024 17:11-0400 SaO2% (BldA) [Mass fraction] 94 % Cristy Bearden PA Work Phone: [facility] 08-02-2024 17:11-0400 Systolic blood pressure 120 mm[Hg] Cristy Bearden PA Work Phone: [facility] 08-02-2024 16:00-0400 Heart rate 71 /min Cristy Bearden PA Work Phone: [facility] 08-02-2024 16:00-0400 Respiratory rate 15 /min Cristy Bearden PA Work Phone: [facility] 08-02-2024 14:25-0400 Body temperature 97.9 [degF] Cristy Bearden PA Work Phone: [facility] 08-02-2024 10:56-0400 Inhaled oxygen flow rate 2 L/min Cristy Bearden PA Work Phone: [facility] 08-02-2024 10:52-0400 Body height 167.64 cm Cristy Bearden PA Work Phone: [facility] 08-02-2024 10:52-0400 Body mass index (BMI) [Ratio] 37 kg/m2 Cristy Bearden PA Work Phone: [facility] 08-02-2024 10:52-0400 Body weight 104 kg Cristy Bearden PA Work Phone: [facility] 08-01-2024 16:24-0400 Body weight 97.4 kg Cristy Bearden PA Work Phone: [facility] 08-01-2024 14:04-0400 Body temperature 98.2 [degF] Cristy Bearden PA Work Phone: [facility] 08-01-2024 14:04-0400 Diastolic blood pressure 79 mm[Hg] Cristy Bearden PA Work Phone: [facility] 08-01-2024 14:04-0400 Heart rate 65 /min Cristy Bearden PA Work Phone: [facility] 08-01-2024 14:04-0400 Respiratory rate 16 /min Cristy Bearden PA Work Phone: [facility] 08-01-2024 14:04-0400 SaO2% (BldA) [Mass fraction] 97 % Cristy Bearden PA Work Phone: [facility] 08-01-2024 14:04-0400 Systolic blood pressure 140 mm[Hg] Cristy Bearden PA Work Phone: [facility] 08-01-2024 03:26-0400 Body mass index (BMI) [Ratio] 34.4 kg/m2 Cristy Bearden PA Work Phone: [facility] 07-25-2024 10:49-0400 Body mass index (BMI) [Ratio] 35.5 kg/m2 Cristy Bearden PA Work Phone: [facility] 07-25-2024 10:49-0400 Body temperature 97.3 [degF] Cristy Bearden PA Work Phone: [facility] 07-25-2024 10:49-0400 Diastolic blood pressure 70 mm[Hg] Cristy Bearden PA Work Phone: [facility] 07-25-2024 10:49-0400 Heart rate 79 /min Cristy Bearden PA Work Phone: [facility] 07-25-2024 10:49-0400 Respiratory rate 18 /min Cristy Bearden PA Work Phone: [facility] 07-25-2024 10:49-0400 Systolic blood pressure 124 mm[Hg] Cristy Bearden PA Work Phone: [facility] 06-28-2024 00:51-0400 Body weight 99.3 kg Cristy Bearden PA Work Phone: [facility] 06-27-2024 15:07-0400 Body mass index (BMI) [Ratio] 35.5 kg/m2 Cristy Bearden PA Work Phone: [facility] 06-27-2024 15:07-0400 Body temperature 98.8 [degF] Cristy Bearden PA Work Phone: [facility] 06-27-2024 15:07-0400 Diastolic blood pressure 77 mm[Hg] Cristy Bearden PA Work Phone: [facility] 06-27-2024 15:07-0400 Heart rate 91 /min Cristy Bearden PA Work Phone: [facility] 06-27-2024 15:07-0400 Respiratory rate 16 /min Cristy Bearden PA Work Phone: [facility] 06-27-2024 15:07-0400 Systolic blood pressure 137 mm[Hg] Cristy Bearden PA Work Phone: [facility] 06-12-2024 14:18-0400 Diastolic blood pressure 70 mm[Hg] Cristy Bearden PA Work Phone: [facility] 06-12-2024 14:18-0400 Heart rate 74 /min Cristy Bearden PA Work Phone: [facility] 06-12-2024 14:18-0400 Respiratory rate 16 /min Cristy Bearden PA Work Phone: [facility] 06-12-2024 14:18-0400 SaO2% (BldA) [Mass fraction] 94 % Cristy Bearden PA Work Phone: [facility] 06-12-2024 14:18-0400 Systolic blood pressure 121 mm[Hg] Cristy Bearden PA Work Phone: [facility] 06-12-2024 10:21-0400 Body temperature 98.1 [degF] Cristy Bearden PA Work Phone: [facility] 06-10-2024 11:09-0400 Body height 167.64 cm Cristy Bearden PA Work Phone: [facility] 06-10-2024 11:09-0400 Body weight 96.75 kg Cristy Bearden PA Work Phone: [facility] 06-09-2024 13:38-0400 Inhaled oxygen flow rate 3 L/min Cristy Bearden PA Work Phone: [facility] 06-09-2024 13:29-0400 Body mass index (BMI) [Ratio] 34.4 kg/m2 Cristy Bearden PA Work Phone: [facility] 06-09-2024 12:51-0400 Body temperature 98.8 [degF] Cristy Bearden PA Work Phone: [facility] 06-09-2024 12:51-0400 Diastolic blood pressure 74 mm[Hg] Cristy Bearden PA Work Phone: [facility] 06-09-2024 12:51-0400 Heart rate 104 /min Cristy Bearden PA Work Phone: [facility] 06-09-2024 12:51-0400 Respiratory rate 18 /min Cristy Bearden PA Work Phone: [facility] 06-09-2024 12:51-0400 SaO2% (BldA) [Mass fraction] 96 % Cristy Bearden PA Work Phone: [facility] 06-09-2024 12:51-0400 Systolic blood pressure 110 mm[Hg] Cristy Bearden PA Work Phone: [facility] 06-09-2024 11:00-0400 Inhaled oxygen flow rate 2 L/min Cristy Bearden PA Work Phone: [facility] 06-09-2024 09:00-0400 Body height 167.64 cm Cristy Bearden PA Work Phone: [facility] 06-09-2024 09:00-0400 Body mass index (BMI) [Ratio] 35.3 kg/m2 Cristy Bearden PA Work Phone: [facility] 06-09-2024 09:00-0400 Body weight 99.3 kg Cristy Bearden PA Work Phone: [facility] 05-30-2024 16:12-0500 Body weight 99.3 kg Cristy Bearden PA Work Phone: [facility] 05-30-2024 15:13-0500 Body mass index (BMI) [Ratio] 35.5 kg/m2 Cristy Bearden PA Work Phone: [facility] 05-30-2024 15:13-0500 Body temperature 98.1 [degF] Cristy Bearden PA Work Phone: [facility] 05-30-2024 15:13-0500 Diastolic blood pressure 79 mm[Hg] Cristy Bearden PA Work Phone: [facility] 05-30-2024 15:13-0500 Heart rate 90 /min Cristy Bearden PA Work Phone: [facility] 05-30-2024 15:13-0500 Respiratory rate 16 /min Cristy Bearden PA Work Phone: [facility] 05-30-2024 15:13-0500 Systolic blood pressure 117 mm[Hg] Cristy Bearden PA Work Phone: [facility] 05-02-2024 15:21-0500 Body weight 99.3 kg Cristy Bearden PA Work Phone: [facility] 05-02-2024 14:54-0500 Body mass index (BMI) [Ratio] 35.5 kg/m2 Cristy Bearden PA Work Phone: [facility] 05-02-2024 14:54-0500 Body temperature 98.5 [degF] Cristy Bearden PA Work Phone: [facility] 05-02-2024 14:54-0500 Diastolic blood pressure 59 mm[Hg] Cristy Bearden PA Work Phone: [facility] 05-02-2024 14:54-0500 Heart rate 89 /min Cristy Bearden PA Work Phone: [facility] 05-02-2024 14:54-0500 Respiratory rate 18 /min Cristy Bearden PA Work Phone: [facility] 05-02-2024 14:54-0500 Systolic blood pressure 110 mm[Hg] Cristy Bearden PA Work Phone: [facility] 04-04-2024 15:44-0500 Body mass index (BMI) [Ratio] 35.5 kg/m2 Cristy Bearden PA Work Phone: [facility] 04-04-2024 15:44-0500 Respiratory rate 16 /min Cristy Bearden PA Work Phone: [facility] 03-30-2024 00:12-0500 Body temperature 96.6 [degF] Cristy Bearden PA Work Phone: [facility] 03-30-2024 00:12-0500 Body weight 99.79 kg Cristy Bearden PA Work Phone: [facility] 03-30-2024 00:12-0500 Diastolic blood pressure 105 mm[Hg] Cristy Bearden PA Work Phone: [facility] 03-30-2024 00:12-0500 Heart rate 90 /min Cristy Bearden PA Work Phone: [facility] 03-30-2024 00:12-0500 Systolic blood pressure 154 mm[Hg] Cristy Bearden PA Work Phone: [facility] 03-21-2024 15:42-0500 Body mass index (BMI) [Ratio] 35.5 kg/m2 Cristy Bearden PA Work Phone: [facility] 03-21-2024 15:42-0500 Body temperature 98.8 [degF] Cristy Bearden PA Work Phone: [facility] 03-21-2024 15:42-0500 Diastolic blood pressure 84 mm[Hg] Cristy Bearden PA Work Phone: [facility] 03-21-2024 15:42-0500 Heart rate 92 /min Cristy Bearden PA Work Phone: [facility] 03-21-2024 15:42-0500 Respiratory rate 18 /min Cristy Bearden PA Work Phone: [facility] 03-21-2024 15:42-0500 Systolic blood pressure 157 mm[Hg] Cristy Bearden PA Work Phone: [facility] 02-28-2024 00:17-0500 Body weight 99.79 kg Cristy Bearden PA Work Phone: [facility] 02-24-2024 15:06-0500 Body mass index (BMI) [Ratio] 35.5 kg/m2 Cristy Bearden PA Work Phone: [facility] 02-24-2024 15:06-0500 Body temperature 98.1 [degF] Cristy Bearden PA Work Phone: [facility] 02-24-2024 15:06-0500 Diastolic blood pressure 86 mm[Hg] Cristy Bearden PA Work Phone: [facility] 02-24-2024 15:06-0500 Heart rate 84 /min Cristy Bearden PA Work Phone: [facility] 02-24-2024 15:06-0500 Respiratory rate 16 /min Cristy Bearden PA Work Phone: [facility] 02-24-2024 15:06-0500 Systolic blood pressure 142 mm[Hg] Cristy GONZALEZ Work Phone: [facility] 01-29-2024 00:20-0400 Body weight 99.79 kg Crsity GONZALEZ Work Phone: [facility] 01-22-2024 09:34-0400 Body height 167.6 cm Rikki Casas MD Work Phone: [facility] 01-22-2024 09:34-0400 Body mass index (BMI) [Ratio] 29.05 kg/m2 Rikki Casas MD Work Phone: [facility] 01-22-2024 09:34-0400 Body weight 81.65 kg Rikki Casas MD Work Phone: [facility] 12-11-2023 14:35-0400 Diastolic blood pressure 73 mm[Hg] Rikki Casas MD Work Phone: [email or web address] 12-11-2023 14:35-0400 Heart rate 67 /min Rikki Casas MD Work Phone: [email or web address] 12-11-2023 14:35-0400 SaO2% (BldA) [Mass fraction] 99 % Rikki Casas MD Work Phone: [email or web address] 12-11-2023 14:35-0400 Systolic blood pressure 105 mm[Hg] Rikki Casas MD Work Phone: [email or web address] 12-11-2023 14:00-0400 Body temperature 97.5 [degF] Rikki Casas MD Work Phone: [email or web address] 12-11-2023 14:00-0400 Respiratory rate 16 /min Rikki Casas MD Work Phone: [facility] 07-22-2023 13:04-0400 Body mass index (BMI) [Ratio] 35.5 kg/m2 [employer] Kemi Rubio NP Work Phone: [facility] 07-22-2023 13:04-0400 Body temperature 96.6 [degF] [employer] Kemi Ramiro [employer] Work Phone: [facility] 07-22-2023 13:04-0400 Diastolic blood pressure 105 mm[Hg] [employer] Kemi Ramiro [employer] Work Phone: [facility] 07-22-2023 13:04-0400 Heart rate 90 /min [employer] Kemi Ramiro [employer] Work Phone: [facility] 07-22-2023 13:04-0400 Respiratory rate 18 /min [employer] Kemi Ramiro [employer] Work Phone: [facility] 07-22-2023 13:04-0400 Systolic blood pressure 154 mm[Hg] [employer] Kemi Ramiro [employer] Work Phone: [facility] 07-02-2023 16:59-0400 Body height 167.64 cm [employer] Kemi Ramiro [employer] Work Phone: [facility] 07-02-2023 16:59-0400 Body mass index (BMI) [Ratio] 26.6 kg/m2 [employer] Kemi Ramiro [employer] Work Phone: [facility] 07-02-2023 16:59-0400 Body temperature 98.1 [degF] [employer] Kemi Ramiro [employer] Work Phone: [facility] 07-02-2023 16:59-0400 Body weight 74.84 kg [employer] Kemi Ramiro [employer] Work Phone: [facility] 07-02-2023 16:59-0400 Diastolic blood pressure 72 mm[Hg] [employer] Kemi Ramiro [employer] Work Phone: [facility] 07-02-2023 16:59-0400 Heart rate 84 /min [employer] Kemi Ramiro [employer] Work Phone: [facility] 07-02-2023 16:59-0400 Respiratory rate 14 /min [employer] Kemi Ramiro [employer] Work Phone: [facility] 07-02-2023 16:59-0400 SaO2% (BldA) [Mass fraction] 94 % [employer] Kemi Ramiro [employer] Work Phone: [facility] 07-02-2023 16:59-0400 Systolic blood pressure 114 mm[Hg] [employer] Kemi Ramiro [employer]ER Work Phone: [facility] 06-29-2023 00:27-0400 Body weight 99.79 kg [employer] Kemi Ramiro [employer] Work Phone: [facility] 06-15-2023 09:34-0400 Body mass index (BMI) [Ratio] 35.5 kg/m2 [employer] Kemi Ramiro [employer] Work Phone: [facility] 06-15-2023 09:34-0400 Body temperature 97.4 [degF] [employer] Kemi Ramiro [employer] Work Phone: [facility] 06-15-2023 09:34-0400 Diastolic blood pressure 89 mm[Hg] [employer] Kemi Ramiro [employer] Work Phone: [facility] 06-15-2023 09:34-0400 Heart rate 85 /min [employer] Kemi Ramiro [employer] Work Phone: [facility] 06-15-2023 09:34-0400 Respiratory rate 16 /min [employer] Kemi Ramiro [employer] Work Phone: [facility] 06-15-2023 09:34-0400 Systolic blood pressure 144 mm[Hg] [employer] Kemi Ramiro [employer]ER Work Phone: [facility] 05-29-2023 00:38-0500 Body weight 99.79 kg [employer] Kemi Ramiro [employer] Work Phone: [facility] 05-18-2023 09:04-0500 Body mass index (BMI) [Ratio] 35.5 kg/m2 [employer] Kemi Ramiro [employer] Work Phone: [facility] 05-18-2023 09:04-0500 Body temperature 96.2 [degF] [employer] Kemi Ramiro [employer] Work Phone: [facility] 05-18-2023 09:04-0500 Diastolic blood pressure 96 mm[Hg] [employer] Kemi Ramiro [employer] Work Phone: [facility] 05-18-2023 09:04-0500 Heart rate 91 /min [employer] Kemi Ramiro [employer] Work Phone: [facility] 05-18-2023 09:04-0500 Respiratory rate 16 /min [employer] Kemi Ramiro [employer]ER Work Phone: [facility] 05-18-2023 09:04-0500 Systolic blood pressure 147 mm[Hg] [employer] Kemi Ramiro [employer]ER Work Phone: [facility] 04-30-2023 00:55-0500 Body weight 99.79 kg [employer] Kemi Ramiro [employer]ER Work Phone: [facility] 04-21-2023 13:42-0500 Body mass index (BMI) [Ratio] 35.5 kg/m2 [employer] Kemi Ramiro [employer] Work Phone: [facility] 04-21-2023 13:42-0500 Body temperature 97.6 [degF] [employer] Kemi Ramiro [employer] Work Phone: [facility] 04-21-2023 13:42-0500 Diastolic blood pressure 92 mm[Hg] [employer] Kemi Ramiro [employer] Work Phone: [facility] 04-21-2023 13:42-0500 Heart rate 87 /min [employer] Kemi Ramiro [employer] Work Phone: [facility] 04-21-2023 13:42-0500 Respiratory rate 18 /min [employer] Kemi Ramiro [employer] Work Phone: [facility] 04-21-2023 13:42-0500 Systolic blood pressure 163 mm[Hg] [employer] Kemi Ramiro [employer] Work Phone: [facility] 03-30-2023 00:45-0500 Body weight 99.79 kg [employer] Kemi Ramiro [employer] Work Phone: [facility] 03-16-2023 08:57-0500 Body mass index (BMI) [Ratio] 35.5 kg/m2 [employer] Kemi Ramiro [employer] Work Phone: [facility] 03-16-2023 08:57-0500 Body temperature 97.1 [degF] [employer] Kemi Ramiro [employer] Work Phone: [facility] 03-16-2023 08:57-0500 Diastolic blood pressure 74 mm[Hg] [employer] Kemi Ramiro [employer] Work Phone: [facility] 03-16-2023 08:57-0500 Heart rate 91 /min [employer] Kemi Ramiro [employer] Work Phone: [facility] 03-16-2023 08:57-0500 Respiratory rate 18 /min [employer] Kemi Ramiro [employer] Work Phone: [facility] 03-16-2023 08:57-0500 Systolic blood pressure 145 mm[Hg] [employer] Kemi Ramiro [employer]ER Work Phone: [facility] 02-27-2023 00:47-0500 Body weight 99.79 kg [employer] Kemi Ramiro [employer] Work Phone: [facility] 02-16-2023 08:54-0500 Body mass index (BMI) [Ratio] 35.5 kg/m2 [employer] Kemi Ramiro [employer] Work Phone: [facility] 02-16-2023 08:54-0500 Body temperature 95.3 [degF] [employer] Kemi Ramiro [employer] Work Phone: [facility] 02-16-2023 08:54-0500 Diastolic blood pressure 81 mm[Hg] [employer] Kemi Ramiro [employer] Work Phone: [facility] 02-16-2023 08:54-0500 Heart rate 83 /min [employer] Kemi Ramiro [employer] Work Phone: [facility] 02-16-2023 08:54-0500 Respiratory rate 16 /min [employer] Kemi Ramiro [employer] Work Phone: [facility] 02-16-2023 08:54-0500 Systolic blood pressure 136 mm[Hg] [employer] Kemi Ramiro [employer]ER Work Phone: [facility] 01-28-2023 00:48-0400 Body weight 99.79 kg [employer] Kemi Rmairo [employer]ER Work Phone: [facility] 01-19-2023 08:17-0400 Body mass index (BMI) [Ratio] 35.5 kg/m2 [employer] Kemi Ramiro [employer] Work Phone: [facility] 01-19-2023 08:17-0400 Body temperature 96.7 [degF] [employer] Kemi Ramiro [employer] Work Phone: [facility] 01-19-2023 08:17-0400 Diastolic blood pressure 64 mm[Hg] [employer] Kemi Ramiro [employer] Work Phone: [facility] 01-19-2023 08:17-0400 Heart rate 74 /min [employer] Kemi Ramiro [employer] Work Phone: [facility] 01-19-2023 08:17-0400 Respiratory rate 16 /min [employer] Kemi Ramiro [employer] Work Phone: [facility] 01-19-2023 08:17-0400 Systolic blood pressure 118 mm[Hg] [employer] Kemi Ramiro [employer]ER Work Phone: [facility] 12-28-2022 00:40-0400 Body weight 99.79 kg [employer] Kemi Ramiro [employer]ER Work Phone: [facility] 12-08-2022 08:52-0400 Body mass index (BMI) [Ratio] 35.5 kg/m2 [employer] Kemi Ramiro [employer] Work Phone: [facility] 12-08-2022 08:52-0400 Body temperature 96.7 [degF] [employer] Kemi Ramiro [employer] Work Phone: [facility] 12-08-2022 08:52-0400 Diastolic blood pressure 67 mm[Hg] [employer] Kemi Ramiro [employer] Work Phone: [facility] 12-08-2022 08:52-0400 Heart rate 80 /min [employer] Kemi Ramiro [employer] Work Phone: [facility] 12-08-2022 08:52-0400 Respiratory rate 18 /min [employer] Kemi Ramiro [employer] Work Phone: [facility] 12-08-2022 08:52-0400 Systolic blood pressure 133 mm[Hg] [employer] Kemi Ramiro [employer] Work Phone: [facility] 11-28-2022 00:28-0400 Body weight 99.79 kg [employer] Kemi Ramiro [employer] Work Phone: [facility] 11-24-2022 15:31-0400 Body temperature 98.7 [degF] [employer] Kemi Ramiro [employer] Work Phone: [facility] 11-24-2022 15:31-0400 Diastolic blood pressure 66 mm[Hg] [employer] Kemi Ramiro [employer] Work Phone: [facility] 11-24-2022 15:31-0400 Heart rate 61 /min [employer] Kemi Ramiro [employer] Work Phone: [facility] 11-24-2022 15:31-0400 Respiratory rate 18 /min [employer] Kemi Ramiro [employer] Work Phone: [facility] 11-24-2022 15:31-0400 SaO2% (BldA) [Mass fraction] 97 % [employer] Kemi Ramiro TW[employer]ER P[employer]ER Work Phone: [facility] 11-24-2022 15:31-0400 Systolic blood pressure 133 mm[Hg] TWISTER TENDER P[employer]ER-C Kemi Ramiro TWISTER TENDER PAPER Work Phone: [facility] 11-21-2022 16:22-0400 Body height 167.64 cm TWISTER TENDER P[employer]ER-C Kemi Ramiro TWISTER TENDER PAPER Work Phone: [facility] 11-21-2022 16:22-0400 Body mass index (BMI) [Ratio] 24.2 kg/m2 TWISTER TENDER PAPER-C Kemi Ramiro TWISTER TENDER PAPER Work Phone: [facility] 11-21-2022 16:22-0400 Body weight 68 kg TWISTER TENDER PAPER-C Kemi Ramiro TWISTER TENDER PAPER Work Phone: [facility] 11-10-2022 08:37-0400 Body mass index (BMI) [Ratio] 35.5 kg/m2 TWISTER TENDER P[employer]ER-C Kemi Ramiro TWISTER TENDER PAPER Work Phone: [facility] 11-10-2022 08:37-0400 Diastolic blood pressure 75 mm[Hg] TWISTER TENDER PAPER-C Kemi Ramiro TWISTER TENDER PAPER Work Phone: [facility] 11-10-2022 08:37-0400 Heart rate 70 /min TWISTER TENDER P[employer]ER-C Kemi Ramiro TWISTER TENDER P[employer]ER Work Phone: [facility] 11-10-2022 08:37-0400 Respiratory rate 16 /min TWISTER TENDER P[employer]ER-C Kemi Ramiro TWISTER TENDER PAPER Work Phone: [facility] 11-10-2022 08:37-0400 Systolic blood pressure 114 mm[Hg] TWISTER TENDER P[employer]ER-C Kemi Ramiro TWISTER TENDER PAPER Work Phone: [facility] 10-28-2022 00:15-0400 Body temperature 96.9 [degF] TWISTER TENDER PAPER-C Kemi Earlyndell TWISTER TENDER PAPER Work Phone: [facility] 10-28-2022 00:15-0400 Body weight 99.79 kg TWISTER TENDER PAPER-C Kemi Earlyndell TWISTER TENDER PAPER Work Phone: [facility] 10-20-2022 08:28-0400 Body mass index (BMI) [Ratio] 35.5 kg/m2 PA Cristy Biedenharn Work Phone: [facility] 10-20-2022 08:28-0400 Body temperature 96.9 [degF] PA Cristy Biedenharn Work Phone: [facility] 10-20-2022 08:28-0400 Diastolic blood pressure 60 mm[Hg] PA Cristy Biedenharn Work Phone: [facility] 10-20-2022 08:28-0400 Heart rate 85 /min PA Cristy Biedenharn Work Phone: [facility] 10-20-2022 08:28-0400 Respiratory rate 16 /min PA Cristy Biedenharn Work Phone: [facility] 10-20-2022 08:28-0400 Systolic blood pressure 100 mm[Hg] PA Cristy Biedenharn Work Phone: [facility] 09-27-2022 00:55-0400 Body weight 99.79 kg PA Cristy Biedenharn Work Phone: [facility] 09-15-2022 08:09-0400 Body mass index (BMI) [Ratio] 35.5 kg/m2 Dr. Brian Cardona Work Phone: [facility] 09-15-2022 08:09-0400 Body temperature 96.2 [degF] Dr. Brian Cardona Work Phone: [facility] 09-15-2022 08:09-0400 Diastolic blood pressure 56 mm[Hg] Dr. Brian Cardona Work Phone: [facility] 09-15-2022 08:09-0400 Heart rate 76 /min Dr. Brian Cardona Work Phone: [facility] 09-15-2022 08:09-0400 Respiratory rate 16 /min Dr. Brian Cardona Work Phone: [facility] 09-15-2022 08:09-0400 Systolic blood pressure 120 mm[Hg] Dr. Brian Cardona Work Phone: [facility] 09-05-2022 08:48-0400 Body temperature 97.3 [degF] Dr. Brian Cardona Work Phone: [facility] 09-05-2022 08:48-0400 Diastolic blood pressure 69 mm[Hg] Dr. Brian Cardona Work Phone: [facility] 09-05-2022 08:48-0400 Heart rate 80 /min Dr. Brian Cardona Work Phone: [facility] 09-05-2022 08:48-0400 Respiratory rate 18 /min Dr. Brian Cardona Work Phone: [facility] 09-05-2022 08:48-0400 SaO2% (BldA) [Mass fraction] 95 % Dr. Brian Cardona Work Phone: [facility] 09-05-2022 08:48-0400 Systolic blood pressure 117 mm[Hg] Dr. Brian Cardona Work Phone: [facility] 08-28-2022 00:23-0400 Body weight 99.[address] Brian Cardona Work Phone: [facility] 08-18-2022 08:35-0400 Body mass index (BMI) [Ratio] 35.5 kg/m2 Dr. Brian Cardona Work Phone: [facility] 08-18-2022 08:35-0400 Body temperature 97.2 [degF] Dr. Brian Cardona Work Phone: [facility] 08-18-2022 08:35-0400 Diastolic blood pressure 53 mm[Hg] Dr. Brian Cardona Work Phone: [facility] 08-18-2022 08:35-0400 Heart rate 81 /min Dr. Brian Cardona Work Phone: [facility] 08-18-2022 08:35-0400 Respiratory rate 16 /min Dr. Brian Cardona Work Phone: [facility] 08-18-2022 08:35-0400 Systolic blood pressure 112 mm[Hg] Dr. Brian Cardona Work Phone: [facility] 07-28-2022 00:25-0400 Body weight 99.[address] Brian Cardona Work Phone: [facility] 07-14-2022 08:21-0400 Body mass index (BMI) [Ratio] 35.5 kg/m2 Dr. Brian Cardona Work Phone: [facility] 07-14-2022 08:21-0400 Body temperature 96.8 [degF] Dr. Brian Cardona Work Phone: [facility] 07-14-2022 08:21-0400 Diastolic blood pressure 67 mm[Hg] Dr. Brian Cardona Work Phone: [facility] 07-14-2022 08:21-0400 Heart rate 84 /min Dr. Brian Cardona Work Phone: [facility] 07-14-2022 08:21-0400 Respiratory rate 18 /min Dr. Brian Cardona Work Phone: [facility] 07-14-2022 08:21-0400 Systolic blood pressure 118 mm[Hg] Dr. Brian Cardona Work Phone: [facility] 06-28-2022 01:16-0400 Body weight 99.[address] Brian Cardona Work Phone: [facility] 06-18-2022 14:35-0400 Body temperature 97.6 [degF] Dr. Brian Cardona Work Phone: [facility] 06-18-2022 14:35-0400 Diastolic blood pressure 64 mm[Hg] Dr. Brian Cardona Work Phone: [facility] 06-18-2022 14:35-0400 Heart rate 77 /min Dr. Brian Cardona Work Phone: [facility] 06-18-2022 14:35-0400 Respiratory rate 16 /min Dr. Brian Cardona Work Phone: [facility] 06-18-2022 14:35-0400 SaO2% (BldA) [Mass fraction] 97 % Dr. Brian Cardona Work Phone: [facility] 06-18-2022 14:35-0400 Systolic blood pressure 95 mm[Hg] Dr. Brian Cardona Work Phone: [facility] 06-18-2022 12:17-0400 Body height 167.[address] Brian Cardona Work Phone: [facility] 06-18-2022 12:17-0400 Body mass index (BMI) [Ratio] 30.3 kg/m2 Dr. Brian Cardona Work Phone: [facility] 06-18-2022 12:17-0400 Body weight 85.[address] Brian Cardona Work Phone: [facility] 06-09-2022 08:15-0400 Body mass index (BMI) [Ratio] 35.5 kg/m2 Dr. Brian Cardona Work Phone: [facility] 06-09-2022 08:15-0400 Body temperature 95.9 [degF] Dr. Brian Cardona Work Phone: [facility] 06-09-2022 08:15-0400 Diastolic blood pressure 56 mm[Hg] Dr. Brian Cardona Work Phone: [facility] 06-09-2022 08:15-0400 Heart rate 86 /min Dr. Brian Cardona Work Phone: [facility] 06-09-2022 08:15-0400 Respiratory rate 16 /min Dr. Brian Cardona Work Phone: [facility] 06-09-2022 08:15-0400 Systolic blood pressure 131 mm[Hg] Dr. Brian Cardona Work Phone: [facility] 05-28-2022 00:14-0500 Body weight 99.[address] Brian Cardona Work Phone: [facility] 05-27-2022 13:34-0500 Body height 167.[address] Brian Cardona Work Phone: [facility] 05-27-2022 13:34-0500 Body mass index (BMI) [Ratio] 30.3 kg/m2 Dr. Brian Cardona Work Phone: [facility] 05-27-2022 13:34-0500 Body weight 85.[address] Brian Cardona Work Phone: [facility] 05-27-2022 13:34-0500 Diastolic blood pressure 70 mm[Hg] Dr. Brian Cardona Work Phone: [facility] 05-27-2022 13:34-0500 Respiratory rate 18 /min Dr. Brian Cardona Work Phone: [facility] 05-27-2022 13:34-0500 Systolic blood pressure 139 mm[Hg] Dr. Brian Cardona Work Phone: [facility] 05-26-2022 08:40-0500 Body mass index (BMI) [Ratio] 35.5 kg/m2 Dr. Brian Cardona Work Phone: [facility] 05-26-2022 08:40-0500 Body temperature 96.4 [degF] Dr. Brian Cardona Work Phone: [facility] 05-26-2022 08:40-0500 Diastolic blood pressure 61 mm[Hg] Dr. Brian Cardona Work Phone: [facility] 05-26-2022 08:40-0500 Heart rate 82 /min Dr. Brian Cardona Work Phone: [facility] 05-26-2022 08:40-0500 Respiratory rate 16 /min Dr. Brian Cardona Work Phone: [facility] 05-26-2022 08:40-0500 Systolic blood pressure 111 mm[Hg] Dr. Brian Cardona Work Phone: [facility] 05-02-2022 15:16-0500 Diastolic blood pressure 67 mm[Hg] Dr. Brian Cardona Work Phone: [facility] 05-02-2022 15:16-0500 Heart rate 80 /min Dr. Brian Cardona Work Phone: [facility] 05-02-2022 15:16-0500 Respiratory rate 16 /min Dr. Brian Cardona Work Phone: [facility] 05-02-2022 15:16-0500 SaO2% (BldA) [Mass fraction] 95 % Dr. Brian Cardona Work Phone: [facility] 05-02-2022 15:16-0500 Systolic blood pressure 125 mm[Hg] Dr. Brian Cardona Work Phone: [facility] 05-02-2022 12:41-0500 Inhaled oxygen flow rate 2 L/min Dr. Brian Cardona Work Phone: [facility] 05-02-2022 12:04-0500 Body temperature 98.2 [degF] Dr. Brian Cardona Work Phone: [facility] 05-02-2022 12:00-0500 Body height 167.[address] Brian Cardona Work Phone: [facility] 05-02-2022 12:00-0500 Body mass index (BMI) [Ratio] 29.6 kg/m2 Dr. Brian Cardona Work Phone: [facility] 05-02-2022 12:00-0500 Body weight 83.[address] Brian Cardona Work Phone: [facility] 04-30-2022 14:49-0500 Respiratory rate 18 /min Dr. Brian Cardona Work Phone: [facility] 04-30-2022 12:12-0500 Body temperature 97.9 [degF] Dr. Brian Cardona Work Phone: [facility] 04-30-2022 12:12-0500 Diastolic blood pressure 65 mm[Hg] Dr. Brian Cardona Work Phone: [facility] 04-30-2022 12:12-0500 Heart rate 80 /min Dr. Brian Cardona Work Phone: [facility] 04-30-2022 12:12-0500 SaO2% (BldA) [Mass fraction] 92 % Dr. Brian Cardona Work Phone: [facility] 04-30-2022 12:12-0500 Systolic blood pressure 112 mm[Hg] Dr. Brian Cardona Work Phone: [facility] 04-30-2022 00:20-0500 Body weight 99.[address] Brian Cardona Work Phone: [facility] 04-29-2022 21:33-0500 Body temperature 97.8 [degF] Dr. Brian Cardona Work Phone: [facility] 04-29-2022 21:33-0500 Diastolic blood pressure 65 mm[Hg] Dr. Brian Cardona Work Phone: [facility] 04-29-2022 21:33-0500 Heart rate 77 /min Dr. Brian Cardona Work Phone: [facility] 04-29-2022 21:33-0500 Respiratory rate 16 /min Dr. Brian Cardona Work Phone: [facility] 04-29-2022 21:33-0500 SaO2% (BldA) [Mass fraction] 94 % Dr. Brian Cardona Work Phone: [facility] 04-29-2022 21:33-0500 Systolic blood pressure 121 mm[Hg] Dr. Brian Cardona Work Phone: [facility] 04-29-2022 13:32-0500 Body height 167.[address] Brian Cardona Work Phone: [facility] 04-29-2022 13:32-0500 Body weight 99.[address] Brian Cardona Work Phone: [facility] 04-28-2022 17:34-0500 Body mass index (BMI) [Ratio] 35.5 kg/m2 Dr. Brian Cardona Work Phone: [facility] 04-25-2022 08:01-0500 Body mass index (BMI) [Ratio] 35.5 kg/m2 Dr. Brian Cardona Work Phone: [facility] 04-25-2022 08:01-0500 Body temperature 96.6 [degF] Dr. Brian Cardona Work Phone: [facility] 04-25-2022 08:01-0500 Diastolic blood pressure 42 mm[Hg] Dr. Brian Cardona Work Phone: [facility] 04-25-2022 08:01-0500 Heart rate 88 /min Dr. Brian Cardona Work Phone: [facility] 04-25-2022 08:01-0500 Systolic blood pressure 100 mm[Hg] Dr. Brian Cardona Work Phone: [facility] 04-15-2022 13:50-0500 Respiratory rate 16 /min Dr. Brian Cardona Work Phone: [facility] 03-30-2022 00:07-0500 Body weight 99.[address] Brian Cardona Work Phone: [facility] 03-28-2022 08:11-0500 Body mass index (BMI) [Ratio] 35.5 kg/m2 Dr. Brian Cardona Work Phone: [facility] 03-28-2022 08:11-0500 Body temperature 97.1 [degF] Dr. Brian Cardona Work Phone: [facility] 03-28-2022 08:11-0500 Diastolic blood pressure 50 mm[Hg] Dr. Brian Cardona Work Phone: [facility] 03-28-2022 08:11-0500 Heart rate 85 /min Dr. Brian Cardona Work Phone: [facility] 03-28-2022 08:11-0500 Respiratory rate 18 /min Dr. Brian Cardona Work Phone: [facility] 03-28-2022 08:11-0500 Systolic blood pressure 88 mm[Hg] Dr. Brian Cardona Work Phone: [facility] 02-28-2022 09:40-0500 Body height 167.[address] Brian Cardona Work Phone: [facility] Work Phone: 02-28-2022 09:40-0500 Body weight 99.[address] Brian Cardona Work Phone: [facility] 02-08-2022 14:59-0500 Diastolic blood pressure 62 mm[Hg] [facility] 02-08-2022 14:59-0500 Heart rate 74 /min [facility] 02-08-2022 14:59-0500 Respiratory rate 14 /min [facility] 02-08-2022 14:59-0500 SaO2% (BldA) [Mass fraction] 99 % [facility] 02-08-2022 14:59-0500 Systolic blood pressure 111 mm[Hg] [facility] 02-08-2022 13:48-0500 Body temperature 97.1 [degF] [facility] 02-08-2022 10:59-0500 Body height 167.64 cm [facility] Work Phone: 02-08-2022 10:59-0500 Body mass index (BMI) [Ratio] 33.5 kg/m2 [facility] 02-08-2022 10:59-0500 Body weight 94.3 [facility] En[facility] Encounter Date Encounter Type Care Provider Facility Start: 02-13-2025 ambulatory [facility] Facility:[facility] Start: 01-20-2025 Non-patient / Non-visit Dr. Basilio Dill [facility] Work Phone: Start: 01-19-2025 Non-patient / Non-visit Dr. Basilio Dill [facility] Work Phone: Start: 01-18-2025 Non-patient / Non-visit Dr. Basilio Dill [facility] Work Phone: Start: 01-17-2025 Non-patient / Non-visit Dr. Basilio Dill [facility] Work Phone: Start: 01-17-2025 ambulatory Brian Mccoy y:[facility] Start: 01-17-2025 End: 01-20-2025 Evaluation and management of inpatient Dr. Basilio Dill DO [facility] Work Phone: Start: 01-04-2025 End: 01-04-2025 Patient encounter procedure Brian Cardona -[facility] Start: 01-04-2025 End: 01-04-2025 ambulatory Brian LORENZANA Facility:[facility] Start: 12-28-2024 ambulatory Luca Nayak [facility] Start: 12-28-2024 Non-patient / Non-visit Dr. Luca Nayak MD -[facility] Start: 12-26-2024 End: 12-27-[address] [facility] Work Phone: Start: 12-26-2024 End: 12-27-[address] Brian Cardona MD [facility] Start: 11-14-2024 ambulatory Luca Nayak [facility] Start: 11-14-2024 Non-patient / Non-visit Dr. Luca Nayak MD -[facility] Start: 11-14-2024 End: 11-27-[address] Luc[facility] Work Phone: Start: 11-14-[address] Luca schultz MD -[facility] [place] Work Phone: Start: 11-14-2024 End: 11-27-[address] Brian Cardona MD -[facility] Start: 10-31-2024 End: 10-31-2024 Patient encounter procedure Zenobia GONZALEZ -[facility] Work Phone: Start: 10-31-2024 End: 10-31-[address] Brian Cardona MD -[facility] Start: 10-14-2024 End: 10-14-[address] Brian Cardona MD -[facility] Start: 10-14-2024 End: 10-14-[address] Edmundo Quevedo MD -[facility] Work Phone: Start: 10-14-2024 End: 10-14-2024 ambulatory Edmundo Quevedo Facility:[facility] Start: 10-04-2024 Non-patient / Non-visit Dr. Luca Nayak MD -[facility] Start: 10-03-2024 End: 10-27-[address] Luca Nayak MD -[facility] Work Phone: Start: 10-03-[address] Luca schultz MD -[facility] [place] Work Phone: Start: 10-03-2024 Dr. Luca Nayak MD -[facility] Work Phone: Start: 10-03-2024 End: 10-27-[address] Brian Cardona MD -[facility] Start: 10-03-2024 Non-patient / Non-visit Dr. Luca Nayak MD -[facility] Start: 09-28-2024 End: 09-28-[address] Brian Cardona MD -[facility] Start: 09-28-2024 End: 09-28-2024 Patient encounter procedure RIKKI CASAS MD -[facility] Work Phone: Start: 09-28-2024 End: 09-28-2024 RIKKI CASAS MD -[facility] Work Phone: Start: 09-27-2024 End: 09-30-2024 ambulatory Felipa Santos RN [facility] Start: 09-27-2024 End: 09-30-2024 Patient encounter procedure Felipa Santos RN [facility] Start: 09-26-2024 End: 10-20-2024 Telephone encounter Rikki Casas MD Work Phone: [facility] [place] Comment on above: Advice Only Start: 09-16-2024 End: 09-16-[address] Edmundo Quevedo MD -[facility] Work Phone: Start: 09-16-2024 End: 09-16-2024 Dr. Edmundo Quevedo MD -[facility] Work Phone: Start: 09-16-2024 End: 09-16-[address] [facility] MD [facility] Work Phone: Start: 08-29-2024 ambulatory Luca Nayak [facility] Start: 08-29-2024 Non-patient / Non-visit Dr. Luca Nayak MD -[facility] Start: 08-29-2024 Dr. Luca Nayak MD -[facility] Start: 08-29-2024 End: 09-26-2024 Discharged Recurring [...] End: 08-02-2024 [facility]. [facility] Start: 08-02-2024 End: 08-02-2024 Emergency department patient visit Cristy Suleiman GONZALEZ Work Phone: -Emergency Department Work Phone: Start: 08-01-2024 Non-patient / Non-visit Dr. Isha Zurita MD [facility] Work Phone: Start: 08-01-2024 Dr. Isha Zurita MD [facility] Work Phone: Start: 07-31-2024 Non-patient / Non-visit Dr. Miller Blank MD [facility] Work Phone: Start: 07-31-2024 Dr. Miller Blank MD -[facility] Work Phone: Start: 07-30-2024 Non-patient / Non-visit Dr. Miller Blank MD [facility] Work Phone: Start: 07-30-2024 Dr. Miller Blank MD [facility] Work Phone: Start: 07-29-2024 End: [...] Start: 07-26-2024 [facility] Start: 07-25-2024 [facility]-patient / [facility] Start: 07-25-2024 End: 07-27-[address] Luca N[facility]ak [facility] Work Phone: Start: 07-25-2024 End: 07-27-2024 Dr. Luca Nayak [facility] Work Phone: Start: 07-25-2024 End: 07-27-2024 ambulatory [facility] Facility:[facility] Start: 07-11-2024 End: 07-11-2024 ambulatory Cristy Bearden PA Work Phone: [facility] Work Phone: Start: 07-11-2024 End: 07-11-[address] Brian Cardona MD -Laboratory, [place] Work Phone: Start: 07-11-2024 End: 07-11-2024 Dr. Brian Cardona MD -Laboratory [facility] Work Phone: Start: 07-11-2024 End: 07-11-2024 ambulatory Brian Cardona Facility:[facility] Start: 06-27-2024 ambulatory Luca Nayak [facility] Start: 06-27-2024 Non-patient / Non-visit Dr. Luca Nayak MD -[facility] Start: 06-27-2024 Dr. Luca Nayak MD -[facility] Start: 06-27-2024 End: 06-27-2024 ambulatory Cristy GONZALEZ Work Phone: [facility] Work Phone: Start: 06-27-2024 End: 06-27-[address] Luca Nayak [facility] Work Phone: Start: 06-27-2024 End: 06-27-2024 Dr. Luca Nayak MD [facility] Work Phone: Start: 06-22-[address] Juliana Shaw MD -Cardiovascular Services Work Phone: Start: 06-22-2024 ambulatory [facility] Facilit y:[facility] Start: 06-22-2024 Non-patient / Non-visit Dr. Alex Mancera MD -[facility] Work Phone: Start: 06-22-2024 Dr. Juliana Shaw MD -[facility] Work Phone: Start: 06-12-2024 Non-patient / Non-visit Dr. Juliana Shaw MD -[facility] Work Phone: Start: 06-12-2024 Dr. Juliana Shaw MD -[facility] Work Phone: Start: 06-11-2024 Non-patient / Non-visit Dr. Juliana Shaw MD -[facility] Work Phone: Start: 06-11-2024 Dr. Juliana Shaw MD -[facility] Work Phone: Start: 06-10-2024 Non-patient / Non-visit Dr. Juliana Shaw MD -[facility] Work Phone: Start: 06-10-2024 Dr. Juliana Shaw MD -[facility] Work Phone: Start: 06-09-2024 End: 06-12-2024 ambulatory [facility] Facility:[facility] Start: 06-09-2024 End: 06-12-2024 Evaluation and management of inpatient Dr. Juliana Shaw MD -Progressive Care Unit Work Phone: Start: 06-09-2024 End: 06-12-2024 Dr. Juliana Shaw MD -[facility] Work Phone: Start: 06-03-2024 End: 06-03-[address] Edmundo Quevedo MD -[facility] Work Phone: Start: 06-03-2024 End: 06-03-2024 Dr. Edmundo Quevedo MD -[facility] Work Phone: Start: 06-03-2024 End: 06-03-2024 ambulatory Edmundo Quevedo Facility:[facility] Start: 05-30-2024 ambulatory Luca Nayak [facility] Start: 05-30-2024 Non-patient / Non-visit Dr. Luca Nayak MD -[facility] Start: 05-30-2024 Dr. Luca Nayak MD [facility] Start: 05-30-[address] Luca schultz MD -[facility] Work Phone: Start: 05-02-2024 End: 05-27-2024 Discharged Recurring Kemibehzad Rubio TWISTER [employer]ER [employer]ER-C -[facility] Work Phone: Start: 05-02-2024 End: 05-27-2024 ambulatory Kemi Rubio [employer] Facility:[facility] Start: 05-02-2024 Non-patient / Non-visit Dr. Luca Nayak MD -[facility] Start: 04-04-2024 ambulatory Luca Nayak Facility:[facility] Start: 04-04-2024 Non-patient / Non-visit Dr. Luca Nayak MD -[facility] Start: 04-04-2024 End: 04-29-2024 Discharged Recurring Kemibehzad Rubio TWISTER T[employer]ER P[employer]ER-C -[facility] Work Phone: Start: 04-04-2024 End: 04-29-2024 ambulatory Kemi Rubio [employer] Facility:[facility] Start: 03-31-2024 End: 03-31-2024 Telephone encounter Rikki Casas MD Work Phone: [facility] Comment on above: Orders Start: 03-30-2024 ambulatory Kemi Rubio [employer] Fa cility:[facility] Start: 03-24-2024 End: 03-24-2024 Discharged Recurring Kemi Rubio TWISTER T[employer]ER P[employer]ER-C -[facility] Start: 03-24-2024 End: 03-24-2024 ambulatory Brian Cardona Facility:[facility] Start: 03-21-2024 ambulatory Luca Nayak [facility] Start: 03-21-2024 Non-patient / Non-visit Dr. Luca Nayak MD -[facility] Start: 03-21-2024 End: 03-29-2024 Discharged Recurring Kemi Rubio TWISTER T[employer]ER-C -[facility] Work Phone: Start: 03-21-2024 End: 03-29-2024 ambulatory Kemi Rubio [employer] Facility:[facility] Start: 02-24-2024 ambulatory Luca Nayak Facility:[facility] Start: 02-24-2024 Non-patient / Non-visit Kemi Rubio TWISTER T[employer]ER P[employer]ER-C -[facility] Start: 02-24-2024 End: 02-27-[address] Luca Nayak MD -[facility] Work Phone: Start: 02-24-2024 End: 02-27-2024 ambulatory Luca Nayak Facility:[facility] Start: 01-25-2024 End: 01-26-2024 Telephone encounter Rikki Casas MD Work Phone: [facility] Comment on above: Other Start: 01-22-2024 End: 01-22-2024 Office outpatient visit 15 minutes Rikki Casas MD Work Phone: [facility] Comment on above: Urinary retention (P rimary Dx) Start: 12-18-2023 End: 12-28-2023 ambulatory Emerald Slater RN [facility] Clinical Communication Start: 12-18-2023 End: 12-28-2023 Patient encounter procedure Emerald Slater RN [facility] Clinical Communication Start: 12-11-2023 End: 12-11-2023 Subsequent hospital visit by physician Rikki Casas MD Work Phone: [facility] [place] Start: 12-10-2023 End: 12-10-2023 Telephone encounter Rikki Casas MD Work Phone: [facility] [place] Start: 12-07-2023 End: 12-07-2023 Telephone encounter Rikki Casas MD Work Phone: [facility] Start: 08-19-2023 Telephone encounter Zackery Carmona MD Work Phone: [facility] Start: 07-22-2023 Non-patient / Non-visit TWISTER TENDER PAPER-C Kemi Ramiro TWISTER TENDER PAPER Work Phone: [facility] Start: 07-22-2023 End: 07-28-2023 ambulatory TWISTER TENDER PAPER-C Kemi E Ramiro TWISTER TENDER PAPER Work Phone: [facility] Work Phone: Start: 07-22-2023 End: 07-28-2023 Discharged Recurring TWISTER TENDER PAPER-C Kemi Ramiro TWISTER TENDER PAPER Work Phone: [facility] Work Phone: Start: 07-02-2023 End: 07-02-2023 Patient encounter procedure TWISTER TENDER PAPER-C Kemibehzad EarlyRamiro TWISTER TENDER PAPER Work Phone: [facility] Work Phone: Start: 06-29-2023 Non-patient / Non-visit TWISTER TENDER PAPER-C Kemi Ramiro TWISTER TENDER PAPER Work Phone: [facility] Start: 06-15-2023 Non-patient / Non-visit TWISTER TENDER PAPER-C Kemi Ramiro TWISTER TENDER PAPER Work Phone: [facility] Start: 06-15-2023 End: 06-28-2023 ambulatory TWISTER TENDER PAPER-C Kemi E Ramiro TWISTER TENDER PAPER Work Phone: [facility] Work Phone: Start: 06-15-2023 End: 06-28-2023 Discharged Recurring TWISTER TENDER PAPER-C Kemi Ramiro TWISTER TENDER PAPER [facility] Work Phone: Start: 06-14-2023 Telephone encounter Brian fritz MD Work Phone: [facility] Communication Comment on above: Other Start: 06-01-2023 Non-patient / Non-visit TWISTER TENDER PAPER-C Kemi Ramiro TWISTER TENDER PAPER Work Phone: [facility] Start: 05-18-2023 Non-patient / Non-visit TWISTER TENDER PAPER-C Kemi Ramiro TWISTER TENDER PAPER Work Phone: [facility] Start: 05-18-2023 End: 05-28-2023 ambulatory TWISTER TENDER PAPER-C Kemi Kia EarlyRamiro TWISTER TENDER PAPER Work Phone: [facility] Work Phone: Start: 05-18-2023 End: 05-28-2023 Discharged Recurring TWISTER TENDER PAPER-C Kemi Earlyndell TWISTER TENDER PAPER Work Phone: [facility] Work Phone: Start: 05-04-2023 Non-patient / Non-visit TWISTER TENDER PAPER-C Kemibehzad EarlyRamiro TWISTER TENDER PAPER Work Phone: [facility] Start: 04-21-2023 Non-patient / Non-visit TWISTER TENDER PAPER-C Kemibehzad EarlyRamiro TWISTER TENDER PAPER Work Phone: [facility] Start: 04-21-2023 End: 04-29-2023 ambulatory TWISTER TENDER PAPER-C Kemi Kia EarlyRamiro TWISTER TENDER PAPER Work Phone: [facility] Work Phone: Start: 04-21-2023 End: 04-29-2023 Discharged Recurring TWISTER TENDER PAPER-C Kemi Workmanell TWISTER TENDER PAPER Work Phone: [facility] Work Phone: Start: 04-06-2023 Non-patient / Non-visit TWISTER TENDER PAPER-C Kemibehzad EarlyRamiro TWISTER TENDER PAPER Work Phone: [facility] Start: 03-16-2023 Non-patient / Non-visit TWISTER TENDER PAPER-C Kemi Ramiro TWISTER TENDER PAPER Work Phone: [facility] Start: 03-16-2023 End: 03-29-2023 ambulatory TWISTER TENDER PAPER-C Kemi E Ramiro TWISTER TENDER PAPER Work Phone: [facility] Work Phone: Start: 03-16-2023 End: 03-29-2023 Discharged Recurring TWISTER TENDER PAPER-C Kemi Earlyndell TWISTER TENDER PAPER [facility]: [facility] [place] Work Phone: Start: 03-06-2023 ambulatory Adilene Henderson linical Communication Start: 03-06-2023 Patient encounter procedure [facility] Start: 03-02-2023 Non-patient / Non-visit TWISTER TENDER PAPER-C Kemi Earlyndell TWISTER TENDER PAPER Work Phone: [facility] Start: 02-16-2023 Non-patient / Non-visit TWISTER TENDER PAPER-C Kemibehzad EarlyRamiro TWISTER TENDER PAPER Work Phone: [facility] Start: 02-16-2023 End: 02-16-2023 ambulatory TWISTER TENDER PAPER-C Kemi Earlyndell TWISTER TENDER PAPER Work Phone: [facility] Work Phone: Start: 02-16-2023 End: 02-16-2023 Patient encounter procedure TWISTER TENDER PAPER-C Kemi Earlyndell TWISTER TENDER PAPER Work Phone: [facility] Work Phone: Start: 02-16-2023 End: 02-26-2023 ambulatory TWISTER TENDER PAPER-C Kemi Earlyndell TWISTER TENDER PAPER Work Phone: [facility] Work Phone: Start: 02-16-2023 End: 02-26-2023 Discharged Recurring TWISTER TENDER PAPER-C Kemi Earlyndell TWISTER TENDER PAPER Work Phone: [facility] [place] Work Phone: Start: 02-16-2023 Registered Recurring TWISTER TENDER PAPER-C Johnc colten Ramiro TWISTER TENDER PAPER Work Phone: [facility] Work Phone: Start: 01-19-2023 Non-patient / Non-visit TWISTER TENDER PAPER-C Kemi Earlyndell TWISTER TENDER PAPER Work Phone: [facility] Start: 01-19-2023 End: 01-27-2023 ambulatory TWISTER TENDER PAPER-C Kemi Earlyndell TWISTER TENDER PAPER Work Phone: [facility] Work Phone: Start: 01-19-2023 End: 01-27-2023 Discharged Recurring TWISTER TENDER PAPER-C Kemi Earlyndell TWISTER TENDER PAPER Work [facility]: [facility] Work Phone: Start: 12-29-2022 Non-patient / Non-visit TWISTER TENDER PAPER-C Kemi Earlyndell TWISTER TENDER PAPER Work Phone: [facility] Start: 12-19-2022 End: 12-19-2022 Patient encounter procedure TWISTER TENDER PAPER-C Kemi Earlyndell TWISTER TENDER PAPER Work Phone: [facility] Work Phone: Start: 12-08-2022 Non-patient / Non-visit TWISTER TENDER PAPER-C Kemi Earlyndell TWISTER TENDER PAPER Work Phone: [facility] Start: 12-08-2022 End: 12-27-2022 ambulatory TWISTER TENDER PAPER-C Kemi Earlyndell TWISTER TENDER PAPER Work Phone: [facility] Work Phone: Start: 12-08-2022 End: 12-27-2022 Discharged Recurring TWISTER TENDER PAPER-C Kemi Earlyndell TWISTER TENDER PAPER Work Phone[facility] Work Phone: Start: 11-24-2022 Non-patient / Non-visit TWISTER TENDER PAPER-C Kemibehzad EarlyRamiro TWISTER TENDER PAPER Work Phone: [facility] Start: 11-23-2022 Non-patient / Non-visit TWISTER TENDER PAPER-C Kemi Ramiro TWISTER TENDER PAPER Work Phone: [facility] Start: 11-22-2022 Non-patient / Non-visit TWISTER TENDER PAPER-C Kemi Ramiro TWISTER TENDER PAPER Work Phone: [facility] Start: 11-21-2022 End: 11-24-2022 Evaluation and management of inpatient TWISTER TENDER PAPER-C Kemi Ramiro TWISTER TENDER PAPER [facility] Work Phone: Start: 11-21-2022 Non-patient / Non-visit TWISTER TENDER PAPER-C Kemi Ramiro TWISTER TENDER PAPER Work Phone: [facility] Start: 11-10-2022 Non-patient / Non-visit TWISTER TENDER PAPER-C Kemi Ramiro TWISTER TENDER PAPER Work Phone: [facility] Start: 11-10-2022 End: 11-27-2022 ambulatory TWISTER TENDER PAPER-C Kemi Rubio TWISTER TENDER PAPER Work Phone: [facility] Work Phone: Start: 11-10-2022 End: 11-27-2022 Discharged Recurring TWISTER TENDER PAPER-C Kemi Ramiro TWISTER TENDER PAPER Work Phone: [facility] Work Phone: Start: 11-10-2022 Registered Recurring TWISTER TENDER PAPER-C Johnbeatriz abel Ramiro TWISTER TENDER PAPER Work Phone: [facility] [place] Work Phone: Start: 10-20-2022 Non-patient / Non-visit PA Cristy Biedenharn Work Phone: [facility] Start: 10-20-2022 End: 10-27-2022 ambulatory PA Cristy Biedenharn Work Phone: [facility] Work Phone: Start: 10-20-2022 End: 10-27-2022 Discharged Recurring PA Cristy Biedenharn Work Phone: [facility] Work Phone: Start: 10-17-2022 End: 10-17-2022 Non-patient / Non-visit TWISTER TENDER PAPER-C Kemi Ramiro TWISTER TENDER PAPER Work Phone: [facility] Work Phone: Start: 10-06-2022 Non-patient / Non-visit CARLOS Verma Work Phone: [facility] Start: 09-15-2022 Non-patient / Non-visit Dr. Brian Cardona Work Phone: [facility] Start: 09-15-2022 End: 09-26-[address] Brian Cardona Work Phone: [facility] Work Phone: Start: 09-15-2022 End: 09-26-[address] Brian Cardona Work Phone: [facility] Work Phone: Start: 09-05-2022 End: 09-05-[address] Brian Cardona Work Phone: [facility] Work Phone: Start: 09-01-2022 Non-patient / Non-visit Dr. Brian Cardona Work Phone: [facility] Start: 08-18-2022 Non-patient / Non-visit Dr. Brian Cardona Work Phone: [facility] Start: 08-18-2022 End: 08-27-[address] Brian Cardona Work Phone: [facility] Work Phone: Start: 08-18-2022 End: 08-27-[address] Brian Cardona [facility] Start: 07-28-2022 Non-patient / Non-visit Dr. Brian Cardona Work Phone: [facility] Start: 07-14-2022 Non-patient / Non-visit Dr. Brian Cardona Work Phone: [facility] Start: 07-14-2022 End: 07-27-[address] Brian Cardona Work Phone: [facility] Work Phone: Start: 07-14-2022 End: 07-27-[address] Brian Cardona [facility] [place] Start: 06-30-2022 Non-patient / Non-visit Dr. Brian Cardona Work Phone: [facility] Start: 06-18-2022 Non-patient / Non-visit Dr. Brian Cardona Work Phone: [facility] Start: 06-18-2022 End: 06-18-2022 Admission to same day surgery center Dr. Brian Cardona Work Phone: [facility] Start: 06-18-2022 End: 06-18-[address] Brian Cardona Work Phone: [facility] Work Phone: Start: 06-09-2022 Non-patient / Non-visit Dr. Brian Cardona Work Phone: [facility] Start: 06-09-2022 End: 06-27-[address] Brian Cardona Work Phone: [facility] Work Phone: Start: 06-09-2022 End: 06-27-[address] Brian Cardona [facility] Start: 06-09-[address] Ritika Cardona Work Phone: [facility] Start: 05-27-2022 End: 05-27-[address] Brian Cardona Work Phone: [facility] Start: 05-26-2022 Non-patient / Non-visit Dr. Brian Cardona Work Phone: [facility] Start: 05-26-2022 End: 05-27-[address] Brian Cardona Work Phone: [facility] Work Phone: Start: 05-26-2022 End: 05-27-[address] Brian Cardona [facility] Start: 05-12-2022 Non-patient / Non-visit Dr. Brian Cardona Work Phone: [facility] Start: 05-05-2022 Non-patient / Non-visit Dr. Brian Cardona Work Phone: [facility] Start: 05-02-2022 End: 05-02-2022 Emergency department patient visit Dr. Brian Cardona Work Phone: [facility] Start: 04-30-2022 Non-patient / Non-visit Dr. Brian Cardona Work Phone: [facility] Start: 04-29-2022 Non-patient / Non-visit Dr. Brian Cardona Work Phone: [facility] Start: 04-29-2022 Non-patient / Non-visit Dr. Brian Cardona Work Phone: [facility] Start: 04-28-2022 End: 04-30-2022 Evaluation and management of inpatient Dr. Brian Cardona [facility] Start: 04-28-2022 End: 04-28-2022 Non-patient / Non-visit Dr. Brian Cardona Work Phone: [facility] Start: 04-25-2022 End: 04-29-[address] Brian Cardona Work Phone: [facility] Work Phone: Start: 04-25-2022 End: 04-29-[address] Brian Cardona [facility] [place] Start: 04-25-2022 Non-patient / Non-visit Dr. Brian Cardona Work Phone: [facility] Start: 04-15-2022 Non-patient / Non-visit Dr. Brian Cardona Work Phone: [facility] Start: 04-10-2022 Non-patient / Non-visit Dr. Brian Cardona Work Phone: [facility] Start: 03-28-2022 Non-patient / Non-visit Dr. Brian Cardona Work Phone: [facility] Start: 03-28-2022 End: 03-29-[address] Brian Cardona Work Phone: [facility] Work Phone: Start: 03-28-2022 End: 03-29-[address] Brian Cardona Work Phone: [facility] Start: 03-14-2022 Non-patient / Non-visit Dr. Brian Cardona Work Phone: [facility] Start: 03-07-2022 Non-patient / Non-visit Dr. Brian Cardona Work Phone: [facility] Start: 02-28-2022 Non-patient / Non-visit Dr. Brian Cardona Work Phone: [facility] Start: 02-08-2022 End: 02-08-2022 Emergency department patient visit [facility] Start: 06-22-2018 End: 06-22-2018 Patient encounter procedure PRAVIN PEDRAZA Facility:[facility] Procedures Date Procedure Procedure Detail Performing [...] PA a nd lateral views Cristy Bearden [place] Work Phone: Start: 08-02-2024 Blood count smear mc rscp w/mnl difrntl wbc count Dr. Brian Cardona MD Start: 08-02-[address] Brian Cradona MD Start: 08-02-2024 Mean corpuscular hem oglobin concentration determination Dr. Brian Cardona MD Start: 08-02-2024 Nucleated red blood cell count procedure Dr. Brian Cardona MD Start: 08-02-2024 Platelet mean volume determination Dr. Brian Cardona MD Start: 08-01-2024 Complete ultrasound of kidneys and bladder Cristy Bearden [place] Work Phone: Start: 08-01-2024 Blood count smear [...] PA a nd lateral views Cristy Bearden [place] Work Phone: Start: 07-29-2024 Calculation of international normalized ratio Dr. Brian Cardona MD Start: 07-29-2024 Urine microscopy: red cells Dr. Brian Cardona MD Start: 07-29-2024 Urnls dip stick/tabl et reagent auto microscopy Dr. Brian Cardona MD Start: 07-29-[address] Ritika Cardona MD Start: 07-29-2024 SARS-CoV-2, Influenz a & RSV (PCR) Cristy Bearden [place] Work Phone: Start: 07-29-2024 Urine culture Cristy [...] Start: 06-03-2024 X-ray of cervical spine Cristy Beardne PA Work Phone: Start: 04-06-2023 Anaerobic microbial culture TWISTER TENDER PAPER-C Kemi Ramiro TWISTER TENDER PAPER Work Phone: Start: 04-06-2023 Investigation of transfusion reaction TWISTER TENDER PAPER-C Kemi Ramiro TWISTER TENDER PAPER Work Phone: Start: 04-06-2023 Microbial culture, routine TWISTER TENDER PAPER-C Kemi Ramiro TWISTER TENDER PAPER Work Phone: Start: 02-16-2023 Radiography of thora cic spine TWISTER TENDER PAPER-C Kemi Ramiro TWISTER TENDER PAPER Work Phone: Start: 11-21-2022 Construction of end colostomy TWISTER TENDER PAPER-C Kemi Ramiro TWISTER TENDER PAPER Work Phone: Start: 11-10-2022 Anaerobic microbial culture TWISTER TENDER PAPER-C Kemi Ramiro TWISTER TENDER PAPER Work Phone: Start: 11-10-2022 Investigation of transfusion reaction TWISTER TENDER PAPER-C Kemi Ramiro TWISTER TENDER PAPER Work Phone: Start: 11-10-2022 Microbial culture, routine TWISTER TENDER PAPER-C Kemi Ramiro TWISTER TENDER PAPER Work Phone: Start: 07-14-[address] Brian Cardona Work Phone: Start: 07-14-2022 Investigation of transfusion reaction Dr. Brian Cardona Work Phone: Start: 07-14-2022 Microbial culture, routine Dr. Brian Cardona Work Phone: Start: 06-18-[address] Atnhony Cardona Work Phone: Start: 05-02-2022 CT of [...] Cardona Work Phone: H/O: colostomy S/P colostomy TWISTER TENDER PAPER-C Kemi Rubio TWISTER TENDER PAPER Work Phone: Comment on above: Patient is [...] Activity Detail Author Start: 01-20-2025 Patient discharge [facility] Start: 01-19-2025 Referral to service [facility] Start: 01-19-2025 Palliative care [facility] Start: 01-19-2025 Oxygen therapy [facility] Start: 01-18-2025 Palliative care [facility] Start: 01-18-2025 Wound care [facility] Start: 01-17-2025 End: 01-17-2025 Following clinical pathway protocol [facility] Start: 01-17-2025 Assessment of risk of venous thromboembolism [facility] Start: 01-17-2025 Consultation for treatment [facility] Start: 01-17-2025 Insertion of catheter into peripheral vein [facility] Start: 01-17-2025 Measuring intake and output [facility] Start: 01-17-2025 Providing care according to standard [facility] Start: 01-17-2025 Provision of activity privileges [facility] Start: 01-17-2025 Referral for physical therapy [facility] Start: 01-17-2025 Referral to occupational therapist [facility] Start: 01-17-2025 Referral to service [facility] Start: 01-17-2025 [facility] Start: 01-17-2025 Admission procedure [facility] Start: 01-17-2025 Patient referral to dietitian [facility] Start: 11-28-2024 Influenza vaccination [facility] Start: 08-07-2024 [facility] Start: 08-07-2024 [facility] Start: 08-02-2024 [facility] Start: 08-01-2024 Patient discharge [facility] Start: 08-01-2024 Wound care [facility] Start: 07-31-2024 [facility] Start: 07-30-2024 Referral to service [facility] Start: 07-30-2024 End: 07-30-2024 [facility] Start: 07-30-2024 Care regimes management [facility] Start: 07-30-2024 Notification of physician [facility] Start: 07-30-2024 Consultation for treatment [facility] Start: 07-29-2024 Following clinical pathway protocol [facility] Start: 07-29-2024 Aspiration precautions [facility] Start: 07-29-2024 Assessment of risk of venous thromboembolism [facility] Start: 07-29-2024 Consultation [facility] Start: 07-29-2024 Fall prevention [facility] Start: 07-29-2024 Inhalation therapy procedure [facility] Start: 07-29-2024 Insertion of catheter into peripheral vein [facility] Start: 07-29-2024 Measuring intake and output [facility] Start: 07-29-2024 Providing care according to standard [facility] Start: 07-29-2024 Provision of activity privileges [facility] Start: 07-29-2024 Referral to occupational therapist [facility] Start: 07-29-2024 Referral to service [facility] Start: 07-29-2024 [facility] Start: 07-29-2024 Admission procedure [facility] Start: 07-29-2024 [facility] Start: 07-29-2024 Blood culture Blood Culture [facility] Start: 07-29-2024 Patient referral to dietitian [facility] Start: 06-12-2024 Patient discharge [facility] Start: 06-10-2024 Referral to service [facility] Start: 06-10-2024 Referral to service [facility] Start: 06-09-2024 Bacteria identified in Blood by Culture Blood Culture [facility] Start: 06-09-2024 Bacteria identified in Urine by Culture Urine Culture [facility] Start: 06-09-2024 Blood culture Blood Culture [facility] Start: 06-09-2024 Wound care [facility] Start: 06-09-2024 Assessment of risk of venous thromboembolism [facility] Start: 06-09-2024 Consultation for treatment [facility] Start: 06-09-2024 Inhalation therapy procedure [facility] Start: 06-09-2024 Insertion of catheter into peripheral vein [facility] Start: 06-09-2024 Measuring intake and output [facility] Start: 06-09-2024 Oxygen therapy [facility] Start: 06-09-2024 Providing care according to standard [facility] Start: 06-09-2024 Provision of activity privileges [facility] Start: 06-09-2024 Referral to occupational therapist [facility] Start: 06-09-2024 Referral to service [facility] Start: 06-09-2024 [facility] Start: 06-09-2024 Verification routine [facility] Start: 06-09-2024 Admission procedure [facility] Start: 06-09-2024 Hospital admission, emergency, from emergency room, medical nature [facility] Start: 06-09-2024 End: 06-09-2024 [facility] Start: 01-22-2024 End: 01-22-2024 Patient encounter procedure [facility] Start: 12-11-2023 End: 12-11-2023 Admission to same day surgery center 12/11/2023 1:30 PM EDT - 12/11/2023 2:30 PM EDT Surgery [facility] [address] [id number] Rikki Casas MD [address] [id number] CYSTOSCOPY [14485 (CPT )] [facility] [place] Comment on above: CYSTOSCOPY [71240 (CPT )] Start: 12-11-2023 End: 12-11-2023 Anesthesia consultation 12/11/2023 1:30 PM EDT Anesthesia Event [facility] [address] [facility] [address] [place] [address] Edy Timmons, EMERGENCY RESPONSE TECHNICIAN - REGISTERED NURSE MIDWIFE [address] [place] [address] [facility] Start: 12-11-2023 Subsequent hospital visit by physician 12/11/2023 1:30 PM EDT Hospital Encounter [facility] [address] [place] [phone] Rikki Casas MD [address] [place] [address] [facility] Start: 12-11-2023 End: 12-11-2023 Cystostomy cystotomy w/drainage [facility] Start: 12-11-2023 End: 12-11-2023 Cystourethroscopy [facility] Start: 11-29-2023 COVID-19 Vaccine ( season) COVID-19 Vaccine () [facility] Start: 11-29-2023 COVID-19 Vaccine ( season) COVID-19 Vaccine () [facility] Start: 11-29-2023 Influenza vaccination Influenza Vaccine (#1) [facility] Start: 10-23-2023 End: 10-23-2023 Patient encounter procedure 10/23/2023 10:30 AM EDT Office Visit [facility] [address] [place] [phone] Rikki Casas MD [address] [place] [address] [facility] Start: 10-12-2023 End: 10-12-2023 Patient encounter procedure 10/12/2023 2:00 PM EDT Office Visit [facility] [address] [place] [phone] Zackery Carmona MD [address] [place], [place] [id number] [facility] Start: 11-28-2022 COVID-19 Vaccine ( season) COVID-19 Vaccine () [facility] Start: 11-25-2022 Wound care [facility] Start: 11-24-2022 Patient discharge [facility] Start: 11-23-2022 Removal of urinary catheter [facility] Start: 11-22-2022 Referral to service [facility] Start: 11-22-2022 [facility] Start: 11-22-2022 Consultation for treatment [facility] Start: 11-21-2022 Admission procedure [facility] Start: 11-21-2022 Application of intermittent pneumatic compression device [facility] Start: 11-21-2022 Following clinical pathway protocol [facility] Start: 11-21-2022 Measuring intake and output [facility] Start: 11-21-2022 Elevation of head of bed [facility] Start: 11-21-2022 Admission procedure [facility] Start: 11-21-2022 [facility] Start: 06-18-2022 Colonoscopy w/biopsy single/multiple COLONOSCOPY AND BIOPSY [facility] Start: 06-18-2022 Patient discharge [facility] Start: 05-02-2022 [facility] Start: 04-30-2022 Patient discharge [facility] Start: 04-29-2022 Wound care [facility] Start: 04-29-2022 Application of intermittent pneumatic compression device [facility] Start: 04-29-2022 Consultation for treatment [facility] Start: 04-29-2022 [facility] Start: 04-28-2022 Following clinical pathway protocol [facility] Start: 04-28-2022 Referral to general surgeon [facility] Start: 04-28-2022 Referral to service [facility] Start: 04-28-2022 Admission procedure [facility] Start: 04-28-2022 Assessment of risk of venous thromboembolism [facility] Start: 04-28-2022 Bedrest [facility] Start: 04-28-2022 Incentive spirometry [facility] Start: 04-28-2022 Measuring intake and output [facility] Start: 04-28-2022 Taking patient vital signs [facility] Start: 04-28-2022 Verification routine [facility] Start: 04-28-2022 Anesthesia on bony pelvis ANESTH PELVIS SURGERY [facility] Start: 04-28-2022 Exc ischial pr ulcer w/ostc musc/myoq flap/skin REMOVE HIP PRESSURE SORE [facility] Start: 04-28-2022 Patient referral to dietitian [facility] Start: 02-08-2022 Referral for further care [facility] Start: 2016 RSV Immunization aged 60 or older (1 - 1-dose 60+ series) RSV Immunization aged 60 or older (1 - 1-dose 60+ series) [facility] Start: 2016 RSV Immunization for Adults (1 - Risk 60-74 years 1-dose series) RSV Immunization for Adults (1 - Risk 60-74 years 1-dose series) [facility] Start: 03-17-2015 Pneumococcal Vaccine: 50+ Years (2 of 2 - PPSV23) Pneumococcal Vaccine: 50+ Years (2 of 2 - PPSV23) [facility] Start: 03-17-2015 Pneumococcal Vaccine: 65+ Years (2 of 2 - PPSV23 or PCV20) Pneumococcal Vaccine: 65+ Years (2 of 2 - PPSV23 or PCV20) [facility] Start: 2006 Zoster Vaccines (1 of 2) Zoster Vaccines (1 of 2) [facility] Start: 08-17-1975 DTaP/Tdap/Td Vaccines (1 - Tdap) DTaP/Tdap/Td Vaccines (1 - Tdap) [facility] Start: 1974 Diabetes mellitus screening Diabetes Screening [facility] Start: 1974 Hepatitis C screening Hepatitis C Screening [facility] Start: 1968 Depression Screening Depression Screening [facility] Start: 1956 Lipid panel Lipid Panel [facility] Start: 1956 Screening for malignant neoplasm of colon [facility] Start: 1956 Thyroid stimulating hormone measurement TSH Level [facility] Anaerobic Culture Anaerobic Culture [facility] Anaerobic microbial culture Anaerobic Cul ture [facility] Bacteria identified in Unspecified specimen by Anaerobe culture [facility] Cardiac event recording [facility] Electrocardiographic procedure [facility] Microbial culture, routine Wound Culture [facility] Microbial culture, routine Wound Culture [facility] MR Thoracic spine [facility] Patient Education [facility] Work Phone: Patient referral [facility] Work Phone: Urine culture [facility] XR Thoracic spine Views [facility] Immunizations Immunization Date Immunization Notes Care Provider Kandy moralez 01-18-2025 influenza, high dose seasonal, preservative-free Dr. Brian Cardona MD [facility] 12-23-2023 influenza virus vaccine, unspecified formulation Felipa Santos RN [facility] 01-23-2023 influenza, injectabl e, quadrivalent, preservative free Cristy Bearden PA Work Phone: [facility] 01-23-2023 influenza virus vaccine, unspecified formulation Rikki Casas MD Work Phone: [facility] 01-31-2022 Influenza High-Dose Quadrivalent Cristy Bearden PA Work Phone: [facility] 01-31-2022 Influenza, high dose seasonal Cristy Bearden PA Work Phone: [facility] 01-31-2022 influenza, high dose seasonal, preservative-free TWISTER TENDER PAPER-C Kemi Ramiro TWISTER TENDER PAPER Work Phone: [facility] 01-22-2022 Covid Moderna Bivale nt Booster Cristy Bearden PA Work Phone: [facility] 09-11-2020 Covid (Moderna) TWISTER TENDER PAPER-C Kemi Ramiro TWISTER TENDER PAPER Work Phone: [facility] 08-14-2020 Covid (Moderna) TWISTER TENDER PAPER-C Kemi Ramiro TWISTER TENDER PAPER Work Phone: [facility] 04-07-2020 influenza, injectabl e, quadrivalent, preservative free TWISTER TENDER PAPER-C Kemi Ramiro TWISTER TENDER PAPER Work Phone: [facility] 04-07-2020 influenza, seasonal, injectable TWISTER TENDER PAPER-C Kemi Ramiro TWISTER TENDER PAPER Work Phone: [facility] 04-07-2020 Seasonal, quadrivale nt, recombinant, injectable influenza vaccine, preservative free Cristy Bearden PA Work Phone: [facility] 02-02-2019 influenza, injectabl e, quadrivalent, preservative free TWISTER TENDER PAPER-C Kemi Ramiro TWISTER TENDER PAPER Work Phone: [facility] 02-02-2019 influenza, seasonal, injectable TWISTER TENDER PAPER-C Kemi Ramiro TWISTER TENDER PAPER Work Phone: [facility] 04-04-2018 Influenza, injectabl e, Madin Gissel Canine Kidney, preservative free, quadrivalent TWISTER TENDER PAPER-C Kemi Ramiro TWISTER TENDER PAPER Work Phone: [facility] Payers Date Payer Category Payer Unknown [id number] 2024 Private Health Insurance [id number] 2024 Private Health Insurance [id number] 2023 Medicare [id number] 2023 Self-pay [id number] 2023 Unknown [id number] 2023 [employer] polanco Managed Care - O RENETTA DECKER Member Subscriber Plan / Payer (Effective 2023-Present) Name: Jorge Covington Relation to Subscriber: Spouse Name: KASSANDRA COVINGTON Date of : 1955 Address: [address] [place] [address] Payer ID: [id number] (NAIC) Type: Commercial Address: [address] [place] [id number] 2023 Unknown RENETTA REECE S RENETTA DECKER [id number] 2023-Present [address] [place] [id number] Commercial [id number]. [id number] 1986 Medicare [id number]. 1.13.680.2. [id number] 1955 Unknown [id number] 2.16.840.1.319958.3.579.2. 278 Unknown [id number] 2.16.840.1.509171.3.579.2. 462 Unknown [id number] 2.16.840.1.714183.3.579.2. 462 Unknown [id number] 2.16.840.1.750185.3.579.2. 462 Unknown [id number] 2.16.840.1.711198.3.579.2. 462 Unknown [id number] 2.16.840.1.985317.3.579.2. 462 Unknown [id number] 2.16.840.1.454974.3.579.2. 462 Unknown [id number] 2.16.840.1.074287.3.579.2. 462 Unknown [id number] 2.16.840.1.333015.3.579.2. 462 Unknown [id number] 2.16.840.1.065971.3.579.2. 462 Unknown [id number] 2.16.840.1.521455.3.579.2. 462 Unknown [id number] 2.16.840.1.938759.3.579.2. 462 Unknown [id number] 2.16.840.1.246742.3.579.2. 462 Unknown [id number] 2.16.840.1.705337.3.579.2. 462 Unknown [id number] 2.16.840.1.201386.3.579.2. 462 Unknown [id number] 2.16.840.1.751881.3.579.2. 462 Unknown [id number] 2.16.840.1.242037.3.579.2. 462 Unknown [id number] 2.16.840.1.273414.3.579.2. 462 Unknown [id number] 2.16.840.1.007236.3.579.2. 462 Unknown [id number] 2.840.1.579978.3.579.2. 462 Unknown [id number] 2.840.1.218692.3.579.2. 462 Unknown [id number] 2.840.1.995895.3.579.2. 462 Unknown [id number] 2.840.1.114209.3.579.2. 462 Unknown [id number] 2.840.1.379259.3.579.2. 462 Unknown [id number] 2.840.1.697020.3.579.2. 462 Unknown [id number] 2.840.1.281192.3.579.2. 462 Unknown [id number] 2.840.1.551626.3.579.2. 462 Unknown [id number] .840.1.461038.3.579.2. 462 Unknown [id number] .840.1.458106.3.579.2. 462 Unknown [id number] 2.840.1.151574.3.579.2. 462 Unknown [id number] 2.840.1.171698.3.579.2. 462 Unknown [id number] 2.840.1.386404.3.579.2. 462 Unknown [id number] .840.1.550591.3.579.2. 462 Unknown [id number] 2.840.1.637077.3.579.2. 462 Unknown [id number] 2.840.1.246735.3.579.2. 462 Unknown [id number] 2.840.1.079238.3.579.2. 462 Unknown [id number] 2.16.840.1.235176.3.579.2. 462 Unknown [id number] 2.16.840.1.420584.3.579.2. 462 Unknown [id number] 2.16.840.1.104923.3.579.2. 462 Unknown [id number] 2.16.840.1.074835.3.579.2. 462 Unknown [id number] 2.16.840.1.612954.3.579.2. 462 Unknown [id number] 2.16.840.1.849283.3.579.2. 462 Unknown [id number] 2.16840.1.714134.3.579.2. 462 Unknown [id number] 2.16.840.1.480309.3.579.2. 462 Unknown [id number] 2.840.1.877842.3.579.2. 462 Unknown [id number] 2.840.1.679879.3.579.2. 462 Unknown [id number] 2.840.1.548744.3.579.2. 462 Unknown [id number] 2.16840.1.879066.3.579.2. 462 Unknown [id number] 2.16.840.1.775251.3.579.2. 462 Unknown [id number] 2.840.1.987404.3.579.2. 462 Unknown [id number] 2.840.1.706983.3.579.2. 462 Unknown [id number] 2.840.1.440415.3.579.2. 462 Unknown [id number] 2.16840.1.351346.3.579.2. 462 Unknown [id number] 2.840.1.258255.3.579.2. 462 Social History Date Type Detail Facility Start: 02-08-2022 End: 07-02-2023 Tobacco smoking status [facility] Unknown if ever smoked [facility] Start: 1955 Sex Assigned At Male W [facility] Start: 1955 Sex Assigned At Not on file [facility] Gender identity Not on file [facility] Start: 10-28-2021 End: 08-02-2024 Sex Male (finding) [facility] Start: 06-09-2024 End: 01-19-2025 Tobacco smoking status NHIS Ex-smoker (finding) [facility] Medical Equipment Procedure Code Equipment Code Equipment Origin al Text Equipment Identifier Dates Laparoscopic creation of end colostomy ()[id number] FDA Start: 11-21-2022 Laparoscopic creation of end colostomy ()[id number] FDA Start: 11-21-2022 Goals Date Patient Goal Desired Activity /State Functional Status Date Assessment Result Facility 01-20-2025 Functional status Dependent/Unable [facility] Work Phone: 08-01-2024 Functional status Bedrest [facility] Work Phone: 06-12-2024 Functional status Bedrest [facility] Work Phone: 11-24-2022 [facility] Work Phone: 04-30-2022 Functional status Ambulates;Assist with U rinal [facility] Work Phone: 04-30-2022 Functional status Assistive Devices Wheel chair [facility] Work Phone: 04-29-2022 Functional status Bedrest [facility] Work Phone: Mental Status Date Assessment Result Facility 01-20-2025 Cognitive function Voice/Name [facility] Work Phone: 08-07-2024 Cognitive function Awake;Alert;Appropriat e [facility] Work Phone: 08-02-2024 Cognitive function Awake;Alert;A ppropriate;Follow s Commands [facility] Work Phone: 08-01-2024 Cognitive function Cooperative [facility] Work Phone: 08-01-2024 Cognitive function Voice/Name [facility] Work Phone: 06-12-2024 Cognitive function Voice/Name [facility] Work Phone: 11-24-2022 Cognitive function Voice/Name [facility] Work Phone: 06-18-2022 Cognitive function Voice/Name [facility] Work Phone: 06-18-2022 Cognitive function Patient Orien tation Person;Place;Time [facility] Work Phone: 04-30-2022 Cognitive function Voice/Name [facility] Work Phone: 04-29-2022 Cognitive function Level Of Cons ciousness Awake;Alert;Appropriate;Follow s Commands [facility] Work Phone: 04-29-2022 Cognitive function Voice/Name [facility] Work Phone: Clinical Notes 05-26-2020 to 01-20-2025 Note Date & Type Note Facility 01-20-2025 Note [facility] 01-17-2025 Discharge summary [facility] 01-17-2025 Radiology Diagnostic study note [facility] Imaging Services [address] [place] [address] Chest PA and Lateral MR#: [id number] Acct: [id number] Name: JORGE COVINGTON Rep #: [id number] : 1955 M 69 From: Eric Ocampo MD PCP: Dr. Brian Cardona MD Status: UT E ER Study:Chest PA and Lateral Date of Exam: 01/17/25 Exam# [id number] Ordering Dr: Adri Saavedra MD PROCEDURE: CHEST [...] bases suggestive of bibasilar atelectasis. Reading Location: [place] [address] CC: Dr. Brian Cardona MD; Dr. Hebert Saavedra MD ~ Rug Measurer: Signed [facility] 11-14-2024 Progress note Note Date/Time November 14, 2024 4:59pm [facility] [address] [place] [address] Progress Note - Wound Care 11/14/24 1655 MR#: [id number] Acct: [id number] Name: JORGE COVINGTON Rep #:[id number] : 1955 69 From: Luca Nayak [...] Charges/Coding Visit Charges Office Visits / Consults: 72046 OV L3 Est 20min Physical Exam Narrative [...] Date Recorded By Document 11/14/24 15:33 DL [id number] 11/14/24 15:38 DL 11/14/24 15:33 - Today's Visit Information Type of service Follow-up Visit (Physician/DRIVEWAY SEALER ) Arrival Mode Wheelchair Transfer Assistance Billy [...] Date Recorded By Document 11/14/24 15:33 DL [id number] 11/14/24 15:38 DL 11/14/24 15:33 Wound Center [...] Recorded Date Recorded By Document 11/14/24 16:01 [id number] 11/14/24 16:04 11/14/24 16:01 Wound Center Nurse [...] Date Recorded By Document 11/14/24 16:20 DL [id number] 11/14/24 16:22 DL 11/14/24 16:20 Wound Care [...] follow-up wound check in six weeks. 11/14/24 7881 <Electronically signed by Luca Nayak MD> Cosigner Signature (if applicable): CC: ~ Signed [facility] Work Phone: 1(491) 322-416308-18-2025 Progress note [facility] [address] [place] [address] Progress Note - Wound Care 11/14/24 1655 MR#: [id number] Acct: [id number] Name: JORGE COVINGTON Rep #:[id number] : 1955 69 From: Luca Nayak [...] Charges/Coding Visit Charges Office Visits / Consults: 29877 OV L3 Est 20min Physical Exam Narrative [...] Date Recorded By Document 11/14/24 15:33 DL [id number] 11/14/24 15:38 DL 11/14/24 15:33 WC - Today's Visit Information Type of service Follow-up Visit (Physician/DRIVEWAY SEALER ) Arrival Mode Wheelchair Transfer Assistance Billy [...] Date Recorded By Document 11/14/24 15:33 DL [id number] 11/14/24 15:38 DL 11/14/24 15:33 Wound Center [...] Recorded Date Recorded By Document 11/14/24 16:01 [id number] 11/14/24 16:04 11/14/24 16:01 Wound Center Nurse [...] Date Recorded By Document 11/14/24 16:20 DL [id number] 11/14/24 16:22 DL 11/14/24 16:20 Wound Care [...] follow-up wound check in six weeks. 11/14/24 1362 Cosigner Signature (if applicable): CC: ~ Signed [facility]08-04-2025 Evaluation note* Diagnosis Onset Date Resolution [...] tract infection inactive O ctober 2024 12:26pm [facility] Work Phone: 1(986) 969-762607-08-2025 Progress note Author Luca Nayak [facility] Note Date/Time October 04, 2024 1:51p m [facility] [address] [place] [address] Progress Note - Wound Care 10/04/24 1348 MR#: [id number] Acct: [id number] Name: JORGE COVINGTON Rep #:[id number] : 1955 69 From: Luca Nayak [...] Charges/Coding Visit Charges Office Visits / Consults: 46884 OV L3 Est 20min Physical Exam Narrative [...] Date Recorded By Document 10/03/24 16:03 DL [id number] 10/03/24 16:08 DL 10/03/24 16:03 - Today's Visit Information Type of service Follow-up Visit (Physician/DRIVEWAY SEALER ) Arrival Mode Wheelchair Transfer Assistance Billy [...] Date Recorded By Document 10/03/24 16:03 DL [id number] 10/03/24 16:08 DL 10/03/24 16:03 Wound Center [...] Date Recorded By Document 10/03/24 16:10 DS [id number] 10/03/24 16:12 DS 10/03/24 16:10 Wound Center [...] Date Recorded By Document 10/03/24 16:29 KW [id number] 10/03/24 16:29 KW 10/03/24 16:29 Wound Care [...] Cosigner Signature (if applicable): CC: ~ Signed [facility] Work Phone: 1(479) 236-191207-08-2025 Progress note [facility] [address] [place] [address] Progress Note - Wound Care 10/04/24 1348 MR#: [id number] Acct: [id number] Name: JORGE COVINGTON Rep #:[id number] : 1955 69 From: Luca Nayak [...] Charges/Coding Visit Charges Office Visits / Consults: 01046 OV L3 Est 20min Physical Exam Narrative [...] Date Recorded By Document 10/03/24 16:03 DL [id number] 10/03/24 16:08 DL 10/03/24 16:03 - Today's Visit Information Type of service Follow-up Visit (Physician/DRIVEWAY SEALER ) Arrival Mode Wheelchair Transfer Assistance Billy [...] Date Recorded By Document 10/03/24 16:03 DL [id number] 10/03/24 16:08 DL 10/03/24 16:03 Wound Center [...] Date Recorded By Document 10/03/24 16:10 DS [id number] 10/03/24 16:12 DS 10/03/24 16:10 Wound Center [...] Recorded Date Recorded By Document 10/03/24 16:29 [id number] 10/03/24 16:29 10/03/24 16:29 Wound Care Center [...] Cosigner Signature (if applicable): CC: ~ Signed [facility]07-01-2025 Telephone encounter Note* Telephone Encounter - [...] letter can be sent. Fax number given: [phone] chichi Rodriguez. Jennifer asked if a PRN order for nurse visit could also be added so she can go back for the urineto send out. Will have this updated in the letter and sent via fax. [id number] Miscellaneous Notes* Telephone Encounter - Faith Dong [...] letter can be sent. Fax number given: [phone] attention Jennifer. Jennifer asked if a PRN order for nurse visit could also be added so she can go back for the urineto send out. Will have this updated in the letter and sent via fax. * Telephone Encounter - Felipa Santos RN - 09/27/2024 9:57 AM EDT S: nurse Jennifer from [facility] spoke with [facility] nurse regarding urinary symptoms and needs [...] pain. R: Please call homecare nurseJennifer, at [phone] with verbal orders for catheter changes and for a UA, C&S, or with other recommendations. No further needs at this time. Reason for Disposition Bad or foul-smelling urine Protocols used: Urinary Guphksuo-ZYFYP-GK documented in this encounterSBerger [id number] Telephone encounter Note* Telephone Encounter - Felipa Santos RN - 09/27/2024 9:57 AM EDT S: nurse Jennifer from [facility] spoke with [facility] nurse regarding urinary symptoms and needs [...] pain. R: Please call homecare nurseJennifer, at [phone] with verbal orders for catheter changes and for a UA, C&S, or with other recommendations. No further needs at this time. Reason for Disposition Bad or foul-smelling urine Protocols used: Urinary Aisloajo-UPJEP-TE [facility]9084 Telephone encounter Note* Telephone Encounter - Saud Souza RN - 09/27/2024 9:28 AM EDT Call placed to Jennifer bad phone connection unable to understand call . Call disconnected [facility]-0977 Miscellaneous Notes* Telephone Encounter - Saud Souza RN - 09/27/2024 9:28 AM EDT Call placed to Jennifer bad phone connection unable to understand call . Call disconnected * Telephone Encounter - Denise Chandler - 09/26/2024 2:05 PM EDT Name of caller: Jennifer Contact phone number: [phone] Relationship to Patient: [facility] [...] return their call: Yes documented in this [facility]06-30-2025 Telephone encounter Note* Telephone Encounter - Denise Chandler - 09/26/2024 2:05 PM EDT Name of caller: Jennifer Contact phone number: [phone] Relationship to Patient: [facility] [...] business hours to return their call: Yes [facility]-5138 Evaluation note* Diagnosis Onset Date Resolution Status [...] stage 3 acute December 26, 2024 2:59pm [facility] Work Phone: 1(519) 337-681606-02-2025 Progress note Author Luca [facility] Note Date/Time August 29, 2024 6:25p m [facility] [address] [place] [address] Progress Note - Wound Care 08/29/24 1820 MR#: [id number] Acct: [id number] Name: JORGE COVINGTON Rep #:[id number] : 1955 69 From: Luca Nayak [...] Charges/Coding Visit Charges Office Visits / Consults: 78126 OV L3 Est 20min Physical Exam Narrative [...] Date Recorded By Document 08/29/24 14:52 SHAISTA [id number] 08/29/24 15:02 KW 08/29/24 14:52 Height and [...] Recorded Date Recorded By Document 08/29/24 14:52 [id number] 08/29/24 15:02 08/29/24 14:52 Wound Center Nurse [...] Recorded Date Recorded By Document 08/29/24 15:30 [id number] 08/29/24 15:31 08/29/24 15:30 Wound Center Nurse 2 -Correct Patient Yes -Correct Side, Site, Position No -Correct Procedure No -Procedure Performed No -Wound/Ulcer Outcome Not Healed Pain Scale: 0-10 Numeric Is Patient Pain Free? Yes [facility] Nurse 3 - General Ulcer D/C NN Start: 08/29/24 14:49 Freq: Status: Active Protocol: Activity Type Activity Date Activity User E-sign Co-sign Detail Recorded Client Recorded Date Recorded By Document 08/29/24 15:40 [id number] 08/29/24 15:42 08/29/24 15:40 Wound Care Center [...] His has been working on getting the [facility] records about his spine surgery and his prognosis. She states that she was told it was sent and received but nobody in the hospital system has been able to locate his chart. We will continue to try to get these records. Encouraged increased protein intake to help with wound healing. Waiting to hear from the [facility] to see if they can assist them [...] Cosigner Signature (if applicable): CC: ~ Signed [facility] Work Phone: 1(165) 865-186405-11-2025 Discharge summary [facility] Medical Records Department [address] [place] [address] Emergency Department Summary 08/07/24 MR#: [id number] Acct: [id number] Name: JORGE COVINGTON Rep #:[id number] : 1955 68 From: Kit Harris [...] pain, vomiting, fevers, headache, focal neurologic deficits. 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 Ireviewed those [...] (Auto) 65.8 Lymph % (Auto) 17.9 L [place] % (Auto) 9.5 Eos % (Auto) 4.2 [...] Clarity Clear Urine pH 6.5 Ur Specific [place] 1.010 Urine Protein 15 H Urine Glucose [...] 18:30 IMPRESSION: No Acute Findings. Reading Location: [facility] Brain CT 08/07/24 18:31 IMPRESSION: No acute intracranial abnormality. Chronic microvascular ischemic and involutional changes. Other chronic findings as described above. Reading Location: [facility] Rhythm Strip Rhythm Strip: Sinus Rhythm Rate: [...] Provider] - Keep [facility]xton appointment Print Language: Northern Irish Disposition Disposition: Home, Self Care What to do if you have Problems For any increased pain, shortness of breath, bleeding, nausea or vomiting, chestpain, or any unexpected problems, contact your Primary Care Provider. Call [facility] ([phone]) or report tothe closest Emergency Room. Call 911 if necessary. 08/07/242058 Cosigner Signature (if applicable): CC: Dr. Brian Cardona MD ~ Signed [place] [facility]05-11-2025 Radiology Diagnostic study note [facility] Imaging Services [address], [place] [address] Chest 1 View (Portable) MR#: [id number] Acct: [id number] Name: JORGE COVINGTON Rep #: [id number] 0 : 1955 M 68 From: Joy Aldana MD PCP: Dr. Brian Cardona MD Status: RE G ER Study:Chest 1 View (Portable) Date of Exam: 08/07/24 Exam# [id number] Ordering Dr: Ramsey Harris MD PROCEDURE: CHEST [...] Harris MD; Dr. Brian Cardona MD ~ Rug Measurer: Signed [facility]05-11-2025 Radiology Diagnostic study note [facility] Imaging Services [address] [place] [address] [id number] Brain/Head without Contrast MR#: [id number] Acct: [id number] Name: JORGE COVINGTON Rep #: [id number] 4 : 1955 M 68 From: Joy Aldana MD PCP: Dr. Brian Cardona MD Status: RE G ER Study:Brain/Head without Contrast Date of Exa m: 08/07/24 Exam# [id number] Ordering Dr: Ramsey Harris MD PROCEDURE: BRAIN/HEAD [...] chronic findings as described above. Reading [facility] CC: Dr. Kit Harris MD; Dr. Brian Cardona MD ~ Rug Measurer: Signed [facility]05-11-2025 Discharge summary Author Kit Harris [facility] Note Date/Time August 07, 2024 8:59p m [facility] Medical Records Department [address] [place] [address] Emergency Department Summary 08/07/24 MR#: [id number] Acct: [id number] Name: JORGE COVINGTON Rep #:[id number] : 1955 68 From: Kit Harris [...] pain, vomiting, fevers, headache, focal neurologic deficits. 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 Ireviewed those [...] (Auto) 65.8 Lymph % (Auto) 17.9 L Def[place] % (Auto) 9.5 Eos % (Auto) 4.2 [...] Clarity Clear Urine pH 6.5 Ur Specific [place] 1.010 Urine Protein 15 H Urine Glucose [...] 18:30 IMPRESSION: No Acute Findings. Reading Location: [facility] Brain CT 08/07/24 18:31 IMPRESSION: No acute intracranial abnormality. Chronic microvascular ischemic and involutional changes. Other chronic findings as described above. Reading Location: [facility] Rhythm Strip Rhythm Strip: Sinus Rhythm Rate: [...] Provider] - Keep Braxton appointment Print Language: Northern Irish Disposition Disposition: Home, Self Care What to do if you have Problems For any increased pain, shortness of breath, bleeding, nausea or vomiting, chestpain, or any unexpected problems, contact your Primary Care Provider. Call [facility] ([phone]) or report to the closest Emergency Room. Call 911 if necessary. 08/07/242058 <Electronically signed by Kit Harris MD> Cosigner Signature (if applicable): CC: Dr. Brian Cardona MD ~ Signed [facility] Work Phone: [phone]) 132-863205-06-2025 Discharge summary Author Hebert Saavedra [facility] Note Date/Time August 02, 2024 12:54p m [facility] Medical Records Department [address] [place] [address] Emergency Department Summary 08/02/24 MR#: [id number] Acct: [id number] Name: JORGE COVINGTON Rep #:[id number] 3 : 1955 68 From: Hebert Saavedra [...] (Patient was discharged yesterday from the hospital.) [facility] Medical History Other acute postprocedural [...] (Auto) 62.3 Lymph % (Auto) 15.1 L Def[place] % (Auto) 15.1 H Eos % (Auto) [...] Clarity Clear Urine pH 7.0 Ur Specific [place] 1.005 Urine Protein 15 H Urine Glucose [...] Read by ED Physician (Independent reviewed interpretedby ky at 1156. Film slightly rotated. There is no cardiomegaly. There is no effusion or infiltrate. Film is suboptimal.), Unchanged, No Acute Disease and Chronic Changes Diagnostic Testing: Clinical Impression(s) from Imaging Studies Chest X-Ray 08/02/24 11:13 IMPRESSION: Similar appearance of the chest as above including cardiomegaly findings suggestive of mild interstitial edema or atypical pneumonia/pneumonitis. Reading Location: [facility] Radiology report was reviewed. Patient has [...] Care Provider] - 1-2 Weeks Print Language: Northern Irish Disposition Disposition: Home, Self Care What to do if you have Problems For any increased pain, shortness of breath, bleeding, nausea or vomiting, chestpain, or any unexpected problems, contact your Primary Care Provider. Call [facility] ([phone]) or report to the closest Emergency Room. Call 911 if necessary. 08/02/24 1254 <Electronically signed by Hebert Saavedra MD> Cosigner Signature (if applicable): CC: Dr. Brian Cardona MD ~ Signed [facility] Work Phone: 1(354) 979-352305-06-2025 Discharge summary [facility] Medical Records Department [address] [place] [address] Emergency Department Summary 08/02/24 MR#: [id number] Acct: [id number] Name: JORGE COVINGTON Rep #:[id number] 3 : 1955 68 From: Hebert Saavedra [...] (Patient was discharged yesterday from the hospital.) [facility] Medical History Other acute postprocedural [...] (Auto) 62.3 Lymph % (Auto) 15.1 L [place] % (Auto) 15.1 H Eos % (Auto) [...] Clarity Clear Urine pH 7.0 Ur Specific [place] 1.005 Urine Protein 15 H Urine Glucose [...] Read by ED Physician (Independent reviewed interpretedby ky at 1156. Filmslightly rotated. There is no cardiomegaly. There is no effusion or infiltrate. Film is suboptimal.), Unchanged, No Acute Disease and Chronic Changes Diagnostic Testing: Clinical Impression(s) from Imaging Studies Chest X-Ray 08/02/24 11:13 IMPRESSION: Similar appearance of the chest as above including cardiomegaly findings suggestive of mild interstitial edema or atypical pneumonia/pneumonitis. Reading Location: [facility] Radiology report was reviewed. Patient has [...] Care Provider] - 1-2 Weeks Print Language: Northern Irish Disposition Disposition: Home, Self Care What to do if you have Problems For any increased pain, shortness of breath, bleeding, nausea or vomiting, chestpain, or any unexpected problems, contact your Primary Care Provider. Call [facility] ([phone]) or report tothe closest Emergency Room. Call 911 if necessary. 08/02/24 1254 Cosigner Signature (if applicable): CC: Dr. Brian Cardona MD ~ Signed [facility]05-06-2025 Radiology Diagnostic study note [facility] Imaging Services [address] [place] [address] Chest PA and Lateral MR#: [id number] Acct: [id number] Name: JORGE COVINGTON Rep #: [id number] 1 : 1955 M 68 From: Germaine Domingo MD PCP: Dr. Brian Cardona MD Status: UT E ER Study:Chest PA and Lateral Date of Exam: 08/02/24 Exam# [id number] Ordering Dr: Adri Saavedra MD PROCEDURE: CHEST [...] interstitial edema or atypical pneumonia/pneumonitis. Reading Location: [id number] CC: Dr. Brian Cardona MD; Dr. Hebert Saavedra MD ~ Rug Measurer: Signed [facility]05-05-[address] [facility]05-02-2025 Evaluation note* Diagnosis Onset Date Resolution [...] buttock, stage 3 acute November 14 2:57pm [facility] Work Phone: 1(851) 757-171005-02-2025 Telephone encounter Note* Telephone Encounter - Rocio Gutierrez RN - 07/29/2024 2:24 PM EDT S: Patient's spouse spoke with [facility] nurse regarding test results for spouse [...] result.) Protocols used: PCP Call - No Raoffp[facility]HVOAT[id number] Miscellaneous Notes* Telephone Encounter - Rocio Gutierrez [...] result.) Protocols used: PCP Call - No Qvyxlk-CZYME-ZD documented in this [facility]04-28-2025 Evaluation note* Diagnosis Onset Date Resolution [...] stage 3 acute October 03, 2024 3:20pm [facility] Work Phone: 1(222) 397-901904-28-2025 Evaluation note* Diagnosis Onset Date Resolution Status [...] buttock, stage 3 acute November 14 2:57pm [facility] Work Phone: 1(450) 433-289303-31-2025 Progress note Author Luca Nayak [facility] Note Date/Time June 27, 2024 5:3 9pm [facility] [place] [address] [place] [address] Progress Note - Wound Care 06/27/24 1654 MR#: [id number] Acct: [id number] Name: JOGRE COVINGTON Rep #:[id number] 7 : 1955 68 From: Luca Nayak [...] Charges/Coding Visit Charges Office Visits / Consults: 30942 OV L3 Est 20min Physical Exam Narrative [...] Date Recorded By Document 05/30/24 15:13 KW [id number] 05/30/24 15:25 KW Document 06/27/24 15:07 [facility] [id number] 06/27/24 15:16 BM 05/30/24 06/27/24 15:13 15:07 - Today's Visit Information Type of service Follow-up Visit Follow-up Visit (Physician/DRIVEWAY SEALER (Physician/DRIVEWAY SEALER ) ) Arrival Mode Wheelchair Wheelchair Transfer [...] Date Recorded By Document 05/30/24 15:13 KW [id number] 05/30/24 15:25 KW Document 06/27/24 15:07 BM [id number] 06/27/24 15:16 BM 05/30/24 06/27/24 15:13 15:07 [...] Recorded Date Recorded By Document 05/30/24 15:34 [id number] 05/30/24 15:39 JF Document 06/27/24 15:43 [id number] 06/27/24 15:49 JF Edit Result 06/27/24 15:43 JF (1) [id number] 06/27/24 15:54 JF (1) #5- R ischium [...] Date Recorded By Document 05/30/24 15:45 DL [id number] 05/30/24 15:48 DL Document 06/27/24 16:00 KW [id number] 06/27/24 16:00 KW 05/30/24 06/27/24 15:45 16:00 [...] His has been working on getting the [facility] records about his spine surgery and his prognosis. She states that she was told it was sent and received but nobody in the hospital system has been able to locate his chart. We will continue to try to get these records. Encouraged increased protein intake to help with wound healing. Waiting to hear from the [facility] to see if they can assist them [...] reasonable for just a wound check. 06/27/24 4118 <Electronically signed by Luca Nayak MD> Cosigner Signature (if applicable): CC: ~ Signed [facility] Work Phone: 1(698) 253-907603-31-2025 Progress note [facility] [address] [place] [address] Progress Note - Wound Care 06/27/24 1654 MR#: [id number] Acct: [id number] Name: JORGE COVINGTON Rep #:[id number] : 1955 68 From: Luca Nayak [...] Charges/Coding Visit Charges Office Visits / Consults: 04432 OV L3 Est 20min Physical Exam Narrative [...] Date Recorded By Document 05/30/24 15:13 KW [id number] 05/30/24 15:25 KW Document 06/27/24 15:07 BM [id number] 06/27/24 15:16 BMF 05/30/24 06/27/24 15:13 15:07 - Today's Visit Information Type of service Follow-up Visit Follow-up Visit (Physician/DRIVEWAY SEALER (Physician/DRIVEWAY SEALER ) ) Arrival Mode Wheelchair Wheelchair Transfer [...] Date Recorded By Document 05/30/24 15:13 KW [id number] 05/30/24 15:25 KW Document 06/27/24 15:07 BM [id number] 06/27/24 15:16 BM 05/30/24 06/27/24 15:13 15:07 [...] Date Recorded By Document 05/30/24 15:34 JF [id number] 05/30/24 15:39 JF Document 06/27/24 15:43 JF [id number] 06/27/24 15:49 JF Edit Result 06/27/24 15:43 JF (1) [id number] 06/27/24 15:54 JF (1) #5- R ischium [...] Date Recorded By Document 05/30/24 15:45 DL [id number] 05/30/24 15:48 DL Document 06/27/24 16:00 KW [id number] 06/27/24 16:00 KW 05/30/24 06/27/24 15:45 16:00 [...] His has been working on getting the [facility] records about his spine surgery and his prognosis. She states that she was told it was sent and received but nobody in the hospital system has been able to locate his chart. We will continue to try to get these records. Encouraged increased protein intake to help with wound healing. Waiting to hear from the [employer] to see if they can assist them [...] reasonable for just a wound check. 06/27/24 6061 Cosigner Signature (if applicable): CC: ~ Signed [facility]03-31-2025 Evaluation note* Diagnosis Onset Date Resolution [...] stage 3 acute October 03, 2024 3:20pm [facility] Work Phone: 1(600) 303-498103-16-2025 Discharge summary [facility] Medical Records Department [address] [place] [address] Instructions for Home/Discharge Instructions 06/12/24 1326 MR#: [id number] Acct: [id number] Name: JORGE COVINGTON Rep #:[id number] : 1955 68 From: Juliana Shaw [...] Recorder Preventi (Urgent) Timeframe: 1 Day Facility: [facility] - Location: Cardiovascular Services Ordered By: Dr. Juliana Shaw Referrals / Follow Up: Brian Cardona MD [Primary Care Provider] - Disposition Disposition (needs filled in before D/C Order can be placed): Home Health Service 06/12/24 1332Plan Shaw MD CC: Dr. Brian Cardona MD ~ Signed [facility]03-16-[address] Progress note Author Juliana Shaw [facility] Note Date/Time June 11, 2024 12: 44pm [facility] Medical Records Department [address] [place] [address] Progress Note - Hospitalist 06/11/24 1242 MR#: [id number] Acct: [id number] Name: JORGE COVINGTON Rep #:[id number] 2 : 1955 68 From: Juliana Shaw MD PCP: Dr. Brian Cardona MD Status:AD M IN Location: [place] [address]- 1 Reason for Visit Reason for Visit: [...] 72.2 H, Lymph % (Auto) 16.6 L, Defiance % (Auto) 7.4, Eos % (Auto) 2.2, [...] pending, preliminarily growing gram- negative edward lactose otologist, white blood cell count downtrending, patient vitally [...] Shaw MD Charges/Coding Visit Charges Inpatient E&M: 30703 Subs Hosp L1 06/11/24 1244 <Electronically signed by Juliana Shaw MD> Cosigner Signature (if applicable): CC: ~ Signed [facility] Work Phone: 1(132) 342-440503-15-2025 Progress note [facility] Medical Records Department [address] [place] [address] Progress Note - Hospitalist 06/11/24 1242 MR#: [id number] Acct: [id number] Name: JORGE COVINGTON Rep #:[id number] 2 : 1955 68 From: Juliana Shaw MD PCP: Dr. Brian Cardona MD Status:AD M IN Location: [place] [id number]- 1 Reason for Visit Reason for Visit: [...] 72.2 H, Lymph % (Auto) 16.6 L, [place] % (Auto) 7.4, Eos % (Auto) 2.2, [...] pending, preliminarily growing gram- negative edward lactose otologist, white blood cell count downtrending, patient vitally [...] Shaw MD Charges/Coding Visit Charges Inpatient E&M: 14312 Subs Hosp L1 06/11/24 124 Cosigner Signature (if applicable): CC: ~ Signed [facility]03-14-2025 Progress note Author Juliana Shaw [facility] Note Date/Time June 10, 2024 2:2 5pm [facility] Medical Records Department [address] [place] [address] Progress Note - Hospitalist 06/10/24 0859 MR#: [id number] Acct: [id number] Name: JORGE COVINGTON Rep #:[id number] 2 : 1955 68 From: Juliana Shaw MD PCP: Dr. Brian Cardona MD Status:AD M IN Location: [place] [address] Reason for Visit Reason for Visit: Diagnoses [...] 85.9 H, Lymph % (Auto) 5.6 L, [place] % (Auto) 6.9, Eos % (Auto) 0.4, [...] Clarity Cloudy, Urine pH 7.0, Ur Specific [place] 1.010, Urine Protein 30 H, Urine Glucose [...] 76.6 H, Lymph % (Auto) 12.1 L, [place] % (Auto) 8.2, Eos % (Auto) 1.4, [...] of scarring. Right apical scarring. Reading Location: [facility] Physical Exam Narrative General: Alert, answers [...] pending, preliminarily growing gram- negative edward lactose otologist, white blood cell count downtrending, patient vitally [...] Shaw MD Charges/Coding Visit Charges Inpatient E&M: 36450 Subs Hosp L1 06/10/24 4731 <Electronically signed by Juliana Shaw MD> Cosigner Signature (if applicable): CC: ~ Signed ADDENDUM by Dr. Juliana Shaw MD on 06/10/24 at 1423 Addendum Patient had an episode where there [...] Cosigner Signature (if applicable): cc: ~* Signed [facility] Work Phone: 1(834) 157-288703-14-2025 Progress note [facility] Medical Records Department [address] [place] [address] Progress Note - Hospitalist 06/10/24 0859 MR#: [id number] Acct: [id number] Name: JORGE COVINGTON Rep #:[id number] 2 : 1955 68 From: Juliana Shaw MD PCP: Dr. Brian Cardona MD Status:AD M IN Location: [place] [address]- 1 Reason for Visit Reason for Visit: [...] 85.9 H, Lymph % (Auto) 5.6 L, Defiance % (Auto) 6.9, Eos % (Auto) 0.4, [...] Clarity Cloudy, Urine pH 7.0, Ur Specific [place] 1.010, Urine Protein 30 H, Urine Glucose [...] 76.6 H, Lymph % (Auto) 12.1 L, [place] % (Auto) 8.2, Eos % (Auto) 1.4, [...] of scarring. Right apical scarring. Reading Location: [facility] Physical Exam Narrative General: Alert, answers [...] pending, preliminarily growing gram- negative edward lactose otologist, white blood cell count downtrending, patient vitally [...] Shaw MD Charges/Coding Visit Charges Inpatient E&M: 19198 Subs Hosp L1 06/10/24 1424 Cosigner Signature [...] Cosigner Signature (if applicable): cc: ~* Signed [facility]03-13-2025 History and physical note Author Juliana Shaw [facility] Note Date/Time June 09, 2024 12: 16pm [facility] Medical Records Department [address] [place] [address] H&P Exam - Hospitalist 06/09/24 1206 MR#: [id number] Acct: [id number] Name: JORGE COVINGTON Rep #:[id number] 4 : 1955 68 From: Juliana Shaw MD PCP: Dr. Brian Cardona MD Status:RE G ER Location: ED HPI - General General Date of Admission: 06/09/24 Date of Service: 06/09/24 Chief Complaint: Fever HPI Narrative JORGE COVINGTON, is a 68 M with history of paraplegia, COPD, hypothyroidism, chronic indwelling Benson who presented [facility] ED 06/09/2024 with 1 day of [...] some diarrhea but otherwise grider negative ROS. [facility] Medical History Other acute postprocedural pain Paraplegic [...] 85.9 H, Lymph % (Auto) 5.6 L, [place] % (Auto) 6.9, Eos % (Auto) 0.4, [...] Clarity Cloudy, Urine pH 7.0, Ur Specific [place] 1.010, Urine Protein 30 H, Urine Glucose [...] of scarring. Right apical scarring. Reading Location: [facility] Assessment & Plan Assessment/Plan (1) Complicated [...] 57 Minutes Charges/Coding Visit Charges Inpatient E&M: 22292 Init Hosp L2 06/09/24 1216 <Electronically signed by Juliana Shaw MD> Cosigner Signature (if applicable): CC: Dr. Juliana Shaw MD; Dr. Brian Cardona MD~ Signed [facility] Work Phone: 1(176) 452-857403-13-2025 Evaluation note* Diagnosis Onset Date Resolution Status [...] Thoracic myelopathy inactive September 16, 2024 2:45pm [facility] Work Phone: 1(141) 843-496403-13-2025 Discharge summary [facility] Note Date/Time June 09, 2024 11: 32am [facility] Medical Records Department [address] [place] [address] Emergency Department Summary 06/09/24 MR#: [id number] Acct: [id number] Name: JORGE COVINGTON Rep #:[id number] 7 : 1955 68 From: Hebert Saavedra [...] however there is a past history of [place] that he has history of COPD. He [...] similar symptoms: Yes Recent Illness/Hospitalization: No PFSH [facility] Medical History Other acute postprocedural pain Paraplegic [...] 85.9 H Lymph % (Auto) 5.6 L [place] % (Auto) 6.9 Eos % (Auto) 0.4 [...] Clarity Cloudy Urine pH 7.0 Ur Specific [place] 1.010 Urine Protein 30 H Urine Glucose [...] inspiration. There is family reviewed interpreted by ky [email or web address].) Diagnostic Testing: Clinical Impression(s) from Imaging Studies Chest X-Ray 06/09/24 09:12 IMPRESSION: Stable mild increased markings at the lung bases suggestive of scarring. Right apical scarring. Reading Location: [id number] Management Discussion w/another healthcare provider: Hospitalist (Spoke [...] coverage since she presents from home. Comments:: [place] was asked to page the hospitalist at 1116. Discharge Plan Dx/Rx/DC Orders Clinical Impression: Complicated urinary tract infection, Bedridden, Paraplegic spinal paralysis, Colostomy in place, Hyperlipidemia, Spinal cord injury, SIRS (systemic inflammatory response syndrome), Leukocytosis, Decubitus ulcer of right buttock,stage 3, Acidosis, lactic Disposition Disposition: Acute Care Hospital [facility] What to do if you have Problems For any increased pain, shortness of breath, bleeding, nausea or vomiting, chestpain, or any unexpected problems, contact your Primary Care Provider. Call [facility] ([phone]) or report to the closest Emergency Room. Call 911 if necessary. 06/09/24 1132 <Electronically signed by Hebert Saavedra MD> Cosigner Signature (if applicable): CC: Dr. Brian Cardona MD ~ Signed [facility] Work Phone: 1(467) 766-826503-13-2025 History and physical note [facility] Medical Records Department [address] [place] [address] H&P Exam - Hospitalist 06/09/24 1206 MR#: [id number] Acct: [id number] Name: JORGE COVINGTON Rep #:[id number] : 1955 68 From: Juliana Shaw MD PCP: Dr. Brian Cardona MD Status:RE G ER Location: ED HPI - General General Date of Admission: 06/09/24 Date of Service: 06/09/24 Chief Complaint: Fever HPI Narrative JORGE COVINGTON, is a 68 M with history of paraplegia, COPD, hypothyroidism, chronic indwelling Benson who presented [facility] ED 06/09/2024 with 1 day of [...] some diarrhea but otherwise grider negative ROS. [facility] Medical History Other acute postprocedural pain Paraplegic [...] 85.9 H, Lymph % (Auto) 5.6 L, [place] % (Auto) 6.9, Eos % (Auto) 0.4, [...] Clarity Cloudy, Urine pH 7.0, Ur Specific [place] 1.010, Urine Protein 30 H, Urine Glucose [...] of scarring. Right apical scarring. Reading Location: [facility] Assessment & Plan Assessment/Plan (1) Complicated [...] 57 Minutes Charges/Coding Visit Charges Inpatient E&M: 62151 Init Hosp L2 06/09/24 1216 Cosigner Signature (if applicable): CC: Dr. Juliana Shaw MD; Dr. Brian Cardona MD~ Signed [facility]03-13-2025 Discharge summary [facility] Medical Records Department [address] [place] [address] Emergency Department Summary 06/09/24 MR#: [id number] Acct: [id number] Name: JORGE COVINGTON Rep #:[id number] 7 : 1955 68 From: Hebert Saavedra [...] however there is a past history of [facility] that he has history of COPD. He [...] 85.9 H Lymph % (Auto) 5.6 L [place] % (Auto) 6.9 Eos % (Auto) 0.4 [...] Clarity Cloudy Urine pH 7.0 Ur Specific [place] 1.010 Urine Protein 30 H Urine Glucose [...] limited inspiration. There is familyreviewed interpreted by ky [id number].) Diagnostic Testing: Clinical Impression(s) from Imaging Studies Chest X-Ray 06/09/24 09:12 IMPRESSION: Stable mild increased markings at the lung bases suggestive of scarring. Right apical scarring. Reading Location: [id number] Management Discussion w/another healthcare provider: Hospitalist (Spoke [...] coverage since she presents from home. Comments:: [employer] was asked to page the hospitalist at 1116. Discharge Plan Dx/Rx/DC Orders Clinical Impression: Complicated urinary tract infection, Bedridden, Paraplegic spinal paralysis, Colostomy in place, Hyperlipidemia, Spinal cord injury, SIRS (systemic inflammatory response syndrome), Leukocytosis, Decubitus ulcer of right buttock,stage 3, Acidosis, lactic Disposition Disposition: Acute Care Hospital [facility] What to do if you have Problems For any increased pain, shortness of breath, bleeding, nausea or vomiting, chestpain, or any unexpected problems, contact your Primary Care Provider. Call [facility] ([phone]) or report tothe closest Emergency Room. Call 911 if necessary. 06/09/24 1132 Cosigner Signature (if applicable): CC: Dr. Brian Cardona MD ~ Signed [facility]03-13-2025 Radiology Diagnostic study note [facility] Imaging Services [address] [place], [place] [address] Chest PA and Lateral MR#: [id number] Acct: [id number] Name: JORGE COVINTGON Rep #: [id number] 3 : 1955 M 68 From: Eric Ocampo MD PCP: Dr. Brian Cardona MD Status: RE G ER Study:Chest PA and Lateral Date of Exam: 06/09/24 Exam# [id number] Ordering Dr: Adri Saavedra MD PROCEDURE: CHEST [...] of scarring. Right apical scarring. Reading Location: [id number] CC: Dr. Brian Cardona MD; Dr. Hebert Saavedra MD ~ Rug Measurer: Signed [facility]03-07-2025 Evaluation note* Diagnosis Onset Date Resolution [...] 2 :27pm Scoliosis acute September 16 2:45pm [facility] Work Phone: 1(523) 567-812603-07-2025 Evaluation note* Diagnosis Onset Date Resolution Status [...] Thoracic myelopathy inactive September 16, 2024 2:45pm [facility] Work Phone: 1(983) 459-996903-03-2025 Progress note Author Luca Nayak [facility] Note Date/Time May 30, 2024 5:42 pm [facility] [address] [place] [address] Progress Note - Wound Care 05/30/24 1837 MR#: [id number] Acct: [id number] Name: JORGE COVINGTON Rep #:[id number] 6 : 1955 68 From: Luca Nayak [...] a walker. He is meeting with the account information clerk today at our wound care center after [...] notes from the spine surgeon at the [facility]. Our team is working on this, [...] labs (ordering). We are referring to the journeyman pipefitter/systems consultant here at the wound care center. [...] Index (BMI) 35.5 Charges/Coding Procedures Integumentary 111xxx-113xx: 21475 Lillian musc/fascia 20 sq cm/< Add On Codes: 74659 Lillian musc/fascia add-on (x 1 unit ) [...] Date Recorded By Document 05/30/24 15:13 KW [id number] 05/30/24 15:25 05/30/24 15:13 WC - Today's Visit Information Type of service Follow-up Visit (Physician/DRIVEWAY SEALER ) Arrival Mode Wheelchair Accompanied by Patient [...] Date Recorded By Document 05/30/24 15:13 KW [id number] 05/30/24 15:25 05/30/24 15:13 Wound Center Nurse [...] Date Recorded By Document 05/30/24 15:34 ESTER [id number] 05/30/24 15:39 ESTER 05/30/24 15:34 Wound Center [...] Date Recorded By Document 05/30/24 15:45 DL [id number] 05/30/24 15:48 DL 05/30/24 15:45 Wound Care [...] His has been working on getting the [facility] records about his spine surgery and his prognosis. She states that she was told it was sent and received but nobody in the hospital system has been able to locate his chart. We will continue to try to get these records. Encouraged increased protein intake to help with wound healing. Waiting to hear from the [facility] to see if they can assist them [...] improvements with dressings. Continue offloading and the [facility] WTD. O.K. for monthly wound checks (challenge for the family to come more often than this, and wound is open and healthy). Plan to continue to promote granulation (has granulated over bone with current regimen). 05/30/241841 <Electronically signed by Luca Nayak MD> Cosigner Signature (if applicable): CC: ~ Signed [facility] Work Phone: 1(672) 718-365003-03-2025 Progress note [facility] [address] [place] [address] Progress Note - Wound Care 05/30/24 1837 MR#: [id number] Acct: [id number] Name: JORGE COVINGTON Rep #:[id number] 6 : 1955 68 From: Luca Nayak [...] a walker. He is meeting with the account information clerk today at our wound care center after [...] notes from the spine surgeon at the [facility]. Our team is working on this, [...] nutrition labs (ordering). We are referring to thedietician/systems consultant here at the wound care center. [...] Index (BMI) 35.5 Charges/Coding Procedures Integumentary 111xxx-113xx: 74503 Lillian musc/fascia 20 sq cm/< Add On Codes: 51701 Lillian musc/fascia add-on (x 1 unit ) [...] Date Recorded By Document 05/30/24 15:13 SHAISTA [id number] 05/30/24 15:25 KW 05/30/24 15:13 WC - Today's Visit Information Type of service Follow-up Visit (Physician/DRIVEWAY SEALER ) Arrival Mode Wheelchair Accompanied by Patient [...] Recorded Date Recorded By Document 05/30/24 15:13 [id number] 05/30/24 15:25 05/30/24 15:13 Wound Center Nurse [...] Recorded Date Recorded By Document 05/30/24 15:34 [id number] 05/30/24 15:39 05/30/24 15:34 Wound Center Nurse [...] Date Recorded By Document 05/30/24 15:45 DL [id number] 05/30/24 15:48 DL 05/30/24 15:45 Wound Care [...] His has been working on getting the [facility] records about his spine surgery and his prognosis. She states that she was told it was sent and received but nobody in the hospital system has been able to locate his chart. We will continue to try to get these records. Encouraged increased protein intake to help with wound healing. Waiting to hear from the [facility] to see if they can assist them [...] Cosigner Signature (if applicable): CC: ~ Signed [facility]02-03-2025 Evaluation note* Diagnosis Onset Date Resolution [...] suprapubic catheter inactive July 29, 2024 9:30pm [facility] Work Phone: 1(298) 249-685601-06-2025 Evaluation note* Diagnosis Onset Date Resolution Status [...] suprapubic catheter chronic July 29, 2024 9:30pm [facility] Work Phone: 1(545) 508-887001-02-2025 Telephone encounter Note* Telephone Encounter - Galileo Mcguire RN - 03/31/2024 2:58 PM EST Letter faxed to number provided. Successful fax confirmation scanned into media. [facility]yl[facility]5277 Miscellaneous Notes* Telephone Encounter - Galileo Mcguire [...] clogged SPT, per Jennifer. Fax order to [phone]. Please advise. * Telephone Encounter - Ely Flannery - 03/31/2024 12:57 PM EST Name of caller: Jennifer Contact phone number: [phone] Relationship to Patient: [facility] Provider: Dr Casas Practice: Uro Chief Complaint/Reason for Call: Requesting a VERBAL ORDER Super Pubic Catheter Monthly Change. Jennifer: [phone] Patient changed insurance this is why the new Order is being requested. Best time of day caller can be reached: any Patient advised that office/PCP has 24-48 business hours to return their call: No documented in this [facility]01-02-2025 Telephone encounter Note* Telephone Encounter - EVELYNE Mccormack CNP - 03/31/2024 2:29 PM EST Letter created, please fax [facility] Phone: 1(855) 187-672301-02-2025 Telephone encounter Note* Telephone Encounter - Misty Ortiz LPN - 03/31/2024 2:07 PM EST Patient need letter created for orders month SPT changes and care for any clogged SPT, per Jennifer. Fax order to [phone]. Please advise. [facility]mektj04-08-9755 Telephone encounter Note* Telephone Encounter - Ely Flannery - 03/31/2024 12:57 PM EST Name of caller: Jennifer Contact phone number: [phone] Relationship to Patient: [facility] Provider: Dr Casas Practice: Uro Chief Complaint/Reason for Call: Requesting a VERBAL ORDER Super Pubic Catheter Monthly Change. Jennifer: [phone] Patient changed insurance this is why the new Order is being requested. Best time of day caller can be reached: any Patient advised that office/PCP has 24-48 business hours to return their call: No [facility]12-23-2024 Evaluation note* Diagnosis Onset Date Resolution [...] stage 4 chronic June 27, 2024 3:30pm [facility] Work Phone: 1(182) 548-761311-27-2024 Evaluation note* Diagnosis Onset Date Resolution Status [...] spinal paralysis chronic June 09, 2024 12:06pm [facility] Work Phone: 1(814) 145-579311-01-2024 Telephone encounter Note* Telephone Encounter - Shamikaalee Khan - 01/29/2024 1:21 PM EDT Name of caller: Jaqueline Contact phone number: [phone] Relationship to Patient: [facility] Provider: Dr Casas Practice: Urology Chief Complaint/Reason for Call: Jaqueline stated that a voicemail was left on her managers phone and was calling back. Tried to call back line, no answer. Please call Jaqueline back to advise. Best time of day caller can be reached: Any Patient advised that office/PCP has 24-48 business hours to return their call: N/A [facility]Dejptd47-60-6812 Miscellaneous Notes* Telephone Encounter - Shamika Khan - 01/29/2024 1:21 PM EDT Name of caller: Jaqueline Contact phone number: [phone] Relationship to Patient: [facility] Provider: Dr Casas Practice: Urology Chief [...] 01/26/2024 8:12 AM EDT Letter faxed to [facility] - ATTN: Jaqueline Your fax has been successfully sent to [facility] at [phone]. 01/26/2024 7:53:04 AM Conversion Record Successfully created cover sheet. Type: application/vnd.openxmlformats-officedocument.wordprocessingml.document G3 to TIFF #1: Success [image/g3] (48ms) GhostScript TIFF #1: Success [image/tiff] (190ms) Resubmitted: [application/postscript] Word Automation #1: Success [image/tiff] (1534ms) ([id number]:WORKSRV2) 01/26/2024 7:52:58 AM Transmission Record Sent to [phone] with remote ID [id number] Result: (0) Success Page record: 1 - 3 Elapsed time: 03:18 on channel 48 01/26/2024 7:52:47 AM Conversion Record [[id number].[email or web address].PRT] Type: application/postscript G3 to TIFF #1: Success [image/g3] (64ms) GhostScript TIFF #1: Success [image/tiff] (379ms) ([id number]:WORKSRV1) 01/26/2024 7:52:40 AM Origin Record Created by [...] that patient is in the ER at [facility] due to SPT being clogged. Home care saw patient this AM but could not change patient's catheter as they do not have orders to change SPT or flush it. Spoke with home care nurse Janell with [facility]. Janell states patient has been an established patient with them for a long time and the SPT is new. Currently they do not have orders to manage SPT. Per spouse they saw Dr. Casas on Thursday and orders were going to be written. Orders need created and faxed. Contact informationincluded below. [facility]. [phone]. ATTN: Jaqueline documented in this [facility]10-29-2024 Telephone encounter Note* Telephone Encounter - Hang Meehan RN - 01/26/2024 8:12 AM EDT Letter faxed to [facility] - ATTN: Jaqueline Your fax has been successfully sent to [facility] at [phone]. 01/26/2024 7:53:04 AM Conversion Record Successfully created cover sheet. Type: application/vnd.openxmlformats-officedocument.wordprocessingml.document G3 to TIFF #1: Success [image/g3] (48ms) GhostScript TIFF #1: Success [image/tiff] (190ms) Resubmitted: [application/postscript] Word Automation #1: Success [image/tiff] (1534ms) ([id number]:WORKSRV2) 01/26/2024 7:52:58 AM Transmission Record Sent to [phone] with remote ID [id number] Result: (0) Success Page record: 1 - 3 Elapsed time: 03:18 on channel 48 01/26/2024 7:52:47 AM Conversion Record [[id number].tmp.PRT] Type: application/postscript G3 to TIFF #1: Success [image/g3] (64ms) GhostScript TIFF #1: Success [image/tiff] (379ms) ([id number]:WORKSRV1) 01/26/2024 7:52:40 AM Origin Record Created by JEANNINE [facility] DaytonKnoxpy63-69-4316 Telephone encounter Note* Telephone Encounter - EVELYNE Pelaez CNP - 01/25/2024 4:54 PM EDT A letter has been created for home health orders. Please fax to home health agency. Thank you [facility] DaytonMjkuwo61-22-6475 Telephone encounter Note* Telephone Encounter - Marta Gallegos LPN - 01/25/2024 2:59 PM EDT Patient's spouse called and wanted to let us know that patient is in the ER at [facility] due to SPT being clogged. Home care saw patient this AM but could not change patient's catheter as they do not have orders to change SPT or flush it. Spoke with home care nurse Janell with [facility]. Janell states patient has been an established patient with them for a long time and the SPT is new. Currently they do not have orders to manage SPT. Per spouse they saw Dr. Casas on Thursday and orders were going to be written. Orders need created and faxed. Contact informationincluded below. [facility]. [phone]. ATTN: Jaqueline [facility] DaytonEptooy60-38-5098 History of Present illness Narrative* Rikki Casas [...] on 12/11/2023. The patient apparently went into [facility] on 12/25/23 (POD#14) because the catheter [...] discharge or drainage around the catheter. 16 Solomon Islander suprapubic tube is in place. Musculoskeletal: [...] perform exchange of the suprapubic cystostomy (16 Solomon Islander) on a monthly basis Rikki Casas MD 01/22/24 5:00 PM documented in this [facility]10-25-2024 History of Present illness Narrative* Rikki [...] on 12/11/2023. The patient apparently went into [facility] on 12/25/23 (POD#14) because the catheter [...] discharge or drainage around the catheter. 16 [place] Islander suprapubic tube is in place. Musculoskeletal: [...] perform exchange of the suprapubic cystostomy (16 Solomon Islander) on a monthly basis Rikki Casas MD 01/22/24 5:00 PM * Diana Moore MA - 01/22/2024 9:50 AM EDT Called [facility], left detailed VM to return call to office regarding SPT orders. documented in this [facility]09-20-2024 Telephone encounter Note* Telephone Encounter - [...] CAC Rn advised her to contact [facility] to see if they are able to replace the catheter. Patient's verbalized understanding. No further needs at this time. Reason for Disposition [1] Catheter is broken or cracked AND [2] still works (functioning normally) Protocols used: Urinary Catheter (e.g., Benson) Symptoms and Mcqsqacju-JTGSQ-LQ [facility] DaytonQktaaj97-85-3726 Miscellaneous Notes* Telephone Encounter - Emerald Slater RN - 12/18/2023 4:02 PM EDT S: Patient's spoke with [facility] nurse regarding catheter leaking where it [...] used: Urinary Catheter (e.g., Benson) Symptoms and Rxlxciffb-YKMPJ-WI documented in this encounterSBerger HospitalUleiaw75-03-8170 Miscellaneous Notes* Perioperative Nursing Note - Karen [...] of the trocar was withdrawn. A 14 Solomon Islander catheter was advanced through the trocar. [...] area in stable condition. documented in this [facility]09-13-2024 Note* Perioperative Nursing Note - Karen Chong RN - 12/11/2023 3:18 PM EDT Discharged to home . Accompanied by . AVS and education reviewed with patient and , both verbalized understanding. Mode of transportation private vehicle Belongings sent. [facility] DaytonHaovdl42-99-6179 Note* Perioperative Nursing Note - Karen Chong RN - 12/11/2023 3:18 PM EDT Discharged to home . Accompanied by . AVS and education reviewed with patient and , both verbalized understanding. Mode of transportation private vehicle Belongings sent. [place] [address]Ccgdxa70-09-3854 Hospital Discharge instructions* Discharge Instructions* Rikki Casas [...] . Rikki Casas M.D. documented in this [facility]09-13-2024 Note* Op Note - Rikki [...] of the trocar was withdrawn. A 14 Solomon Islander catheter was advanced through the trocar. [...] to the recovery area in stable condition. [facility] DaytonQtoyvu20-64-6080 Note* Op Note - Rikki Casas MD [...] of the trocar was withdrawn. A 14 Solomon Islander catheter was advanced through the trocar. [...] to the recovery area in stable condition. [facility] DaytonVogefq09-99-4156 History and physical note* Rikki Casas MD - 12/11/2023 11:52 AM EDT [facility] Comprehensive History and Physical Name: [...] Rikki Casas MD, 12/11/2023 at 1:23 PM [facility] Phone: 1(814) 881-322109-13-2024 History and physical note* Rikki Casas MD - 12/11/2023 11:52 AM EDT [facility] Comprehensive History and Physical Name: Jorge [...] 12/11/2023 at 1:23 PM documented in this encounterSBerger HospitalGfwqey92-05-4900 Telephone encounter Note* Telephone Encounter - Rikki Casas MD - 12/07/2023 2:46 PM EDT error [facility] DaytonWzmsxo23-72-9741 Miscellaneous Notes* Telephone Encounter - Rikki Casas MD - 12/07/2023 2:46 PM EDT error documented in this [facility]06-13-2024 Telephone encounter Note* Telephone Encounter - Brooke Ochoa - 09/10/2023 9:21 AM EDT Patient's called office to request an appt at the [facility]. Appt RS to 10/23/[address] Casas in [place]. [facility] DaytonQkozey75-52-2458 Miscellaneous Notes* Telephone Encounter - Brooke Ochoa - 09/10/2023 9:21 AM EDT Patient's called office to request an appt at the [place] office. Appt RS to 10/23/[address] Casas in [place]. * Telephone Encounter - Cristy Smith - 09/07/2023 1:43 PM EDT Received message via Kal[employer] that pt had been trying to contact office to schedule appt. Returned calland scheduled TWISTER TENDER PAPER appt 10/12/[address] Carmona at [facility]. * Telephone Encounter - Fiorella Willoughby - 08/19/2023 10:34 AM EDT Received referral from [facility] uploaded into chart. New patient appt needed. Called pt LVM to call back to schedule. documented in this encounterSBerger HospitalYtyyjo33-67-6851 Telephone encounter Note* Telephone Encounter - Cristy Smith - 09/07/2023 1:43 PM EDT Received message via [employer] that pt had been trying to contact office to schedule appt. Returned calland scheduled TWISTER TENDER PAPER appt 10/12/[address] Carmona at [facility] location. [facility] DaytonYvdvoo28-38-7912 Miscellaneous Notes* Telephone Encounter - Cristy Smith - 09/07/2023 1:43 PM EDT Received message via [employer] that pt had been trying to contact office to schedule appt. Returned calland scheduled TWISTER TENDER PAPER appt 10/12/[address] Carmona at [facility] location. * Telephone Encounter - Fiorella Willoughby - 08/19/2023 10:34 AM EDT Received referral from [facility] uploaded into chart. New patient appt needed. Called pt LVM to call back to schedule. documented in this [facility]05-22-2024 Telephone encounter Note* Telephone Encounter - Fiorella Willoughby - 08/19/2023 10:34 AM EDT Received referral from [facility] uploaded into chart. New patient appt needed. Called pt LVM to call back to schedule. [facility] DaytonHvrule25-57-0056 Miscellaneous Notes* Telephone Encounter - Fiorella Willoughby - 08/19/2023 10:34 AM EDT Received referral from [facility] uploaded into chart. New patient appt needed. Called pt LVM to call back to schedule. documented in this [facility]04-24-2024 Progress note Author Kemi Rubio [facility] July 22, 2023 5:15pm Note Date/Time July 22, 2023 4:0 9pm [facility] [address] [place] [address] Progress Note - Wound Care 07/22/23 1608 MR#: [id number] Acct: [id number] Name: JORGE COVINGTON Rep #:[id number] 6 : 1955 67 From: Kemi santiago TWISTER TENDER PAPER TWISTER TENDER PAPER-C PCP: Dr. Brian Cardona MD Status:RE G [...] Index (BMI) 35.5 Charges/Coding Procedures Integumentary 111xxx-113xx: 07385 Lillian musc/fascia 20 sq cm/< (ICD-10 - [...] Type of service Follow-up Visit Follow-up Visit (Physician/DRIVEWAY SEALER (Physician/DRIVEWAY SEALER ) ) Arrival Mode Wheelchair Wheelchair Transfer [...] likely benefit from a stay at an [facility] during this time. Patient was informed [...] 1715 <Electronically signed by Kemi Rubio NP TWISTER TENDER PAPER-C> Cosigner Signature (if applicable): CC: ~ Signed [facility] Work Phone: 1(226) 731-758104-02-2024 Progress note Author Kemi Rubio [facility] June 30, 2023 9:52am Note Date/Time June 29, 2023 12:2 8pm [facility] [address] [place] [address] Progress Note - Wound Care 06/29/23 1228 MR#: [id number] Acct: [id number] Name: JORGE COVINGTON Rep #:[id number] 2 : 1955 67 From: Kemi santiago NP TWISTER TENDER PAPER-C PCP: Dr. Brian Cardona MD Status:RE G [...] Index (BMI) 35.5 Charges/Coding Procedures Integumentary 111xxx-113xx: 64245 Lillian musc/fascia 20 sq cm/< (ICD-10 - L89.314, M86.9, F17.200, Z99.3) Add On Codes: 99141 Lillian musc/fascia add-on Debridement Note Debridement Note Post-Debridement Measurements and Additional Note: Post-Debridement Measurements/Treatment - Nurse 1 - General Ulcer Assessment Start: 06/29/23 09:09 Freq: Status: Active Protocol: KIRA Activity Type Activity Date Activity User E-sign Co-sign Detail Recorded Client Recorded Date Recorded By Document 06/29/23 09:09 [facility] [employer] 06/29/23 09:11 [facility] 06/29/23 09:09 WC - Today's Visit Information Type of service Follow-up Visit (Physician/DRIVEWAY SEALER ) Arrival Mode Wheelchair Transfer Assistance Billy [...] By Document 06/29/23 09:09 [facility] [employer] 06/29/23 09:11 [facility] 06/29/23 09:09 Wound Center Nurse 1 [...] 0952 <Electronically signed by Kemi Rubio NP TWISTER TENDER PAPER-C> Cosigner Signature (if applicable): CC: ~ Signed [facility] Work Phone: 1(105) 203-867403-18-2024 Progress note Author [facility] June 15, 2023 5:01pm Note Date/Time June 15, 2023 1:0 9pm [facility] [address] [place] [address] Progress Note - Wound Care 06/15/23 1308 MR#: [id number] Acct: [id number] Name: JORGE COVINGTON Rep #:[id number] 3 : 1955 67 From: Kemi santiago NP TWISTER TENDER PAPER-C PCP: Dr. Brian Cardona MD Status:RE G [...] Index (BMI) 35.5 Charges/Coding Procedures Integumentary 111xxx-113xx: 59227 Lillian musc/fascia 20 sq cm/< (ICD-10 - [...] KW Document 06/15/23 09:34 [facility] Desktop 06/15/23 09:39 BMF 06/01/23 06/15/23 09:23 09:34 - Today's Visit Information Type of service Follow-up Visit Follow-up Visit (Physician/DRIVEWAY SEALER (Physician/DRIVEWAY SEALER ) ) Arrival Mode Wheelchair Wheelchair Transfer [...] KW Document 06/15/23 09:34 [facility] Desktop 06/15/23 09:39 BMF 06/01/23 06/15/23 [...] Recorded Date Recorded By Document 06/01/23 09:39 [employer] 06/01/23 09:43 Document 06/15/23 09:51 [employer] 06/15/23 09:54 06/01/23 06/15/23 09:39 09:51 [...] DL Document 06/15/23 10:09 [facility] Desktop 06/15/23 10:10 [facility] 06/01/23 06/15/23 09:56 10:09 Wound Care [...] Stable Stable Ambulatory Status Wheelchair Wheelchair Transportation [facility] Type Home Health Home Health Orders [...] and she would prefer he stay in [place] if possibledue to transportation issues. Follow up [...] likely benefit from a stay at an [facility] during this time. Patient was informed [...] 1701 <Electronically signed by Kemi Rubio NP TWISTER TENDER PAPER-C> Cosigner Signature (if applicable): CC: ~ Signed [facility] Work Phone: 1(604) 904-490103-17-2024 Telephone encounter Note* Telephone Encounter - Christine hCu - 06/14/2023 3:02 PM EDT Name of caller: Jorge Contact phone number: [phone] Relationship to Patient: patient Provider: Erasmo [facility] Chief Complaint/Reason for Call: Pt called to [...] business hours to return their call: N/A [facility]Gxnfqo06-66-3387 Miscellaneous Notes* Telephone Encounter - Christine Chu - 06/14/2023 3:02 PM EDT Name of caller: Jorge Contact phone number: [phone] Relationship to Patient: patient Provider: Erasmo Practice: [facility] Chief Complaint/Reason for Call: Pt called [...] return their call: N/A documented in this [facility]03-05-2024 Progress note Author Kemi Rubio [facility] June 02, 2023 1:03pm Note Date/Time June 01, 2023 10:2 1am [facility] [address] [place] [address] Progress Note - Wound Care 06/01/23 1021 MR#: [id number] Acct: [id number] Name: JORGE COVINGTON Rep #:[id number] 2 : 1955 67 From: Kemi santiago TWISTER TENDER PAPER TWISTER TENDER PAPER-C PCP: Dr. Brian Cardona MD Status:[facility] Location: History of Present Illness Date [...] Index (BMI) 35.5 Charges/Coding Procedures Integumentary 111xxx-113xx: 27348 Lillian musc/fascia 20 sq cm/< (ICD-10 - L89.314, M86.9, F17.200, Z99.3) Add On Codes: 75883 Lillian musc/fascia add-on (ICD-10 - L89.314, M86.9, [...] Visit Information Type of service Follow-up Visit (Physician/DRIVEWAY SEALER ) Arrival Mode Wheelchair Transfer Assistance Billy [...] him close to home because she prefers [place] over the larger medical centers. I discussed [...] likely benefit from a stay at an [facility] during this time. Patient was informed [...] 1303 <Electronically signed by Kemi Rubio NP TWISTER TENDER PAPER-C> Cosigner Signature (if applicable): CC: ~ Signed [facility] Work Phone: 1(701) 121-991902-20-2024 Progress note Author Kemi Rubio [facility] May 19, 2023 12:46pm Note Date/Time May 18, 2023 11:16am [facility] [address] [place] [address] Progress Note - Wound Care 05/18/23 1115 MR#: [id number] Acct: [id number] Name: JORGE COVINGTON Rep #:[id number] : 1955 67 From: Kemi santiago TWISTER TENDER PAPER TWISTER TENDER PAPER-C PCP: Dr. Brian Cardona MD Status:RE G [...] Index (BMI) 35.5 Charges/Coding Procedures Integumentary 111xxx-113xx: 27572 Lillian musc/fascia 20 sq cm/< (ICD-10 - L89.314, M86.9, F17.200, Z99.3) Add On Codes: 20992 Lillian musc/fascia add-on (ICD-10 - L89.314, M86.9, [...] Recorded Date Recorded By Document 05/04/23 09:03 [employer] Desktop 05/04/23 09:06 BM Document 05/18/23 09:04 Sanrad Desktop 05/18/23 09:16 BMF 05/04/23 05/18/23 09:03 09:04 - Today's Visit Information Type of service Follow-up Visit Follow-up Visit (Physician/DRIVEWAY SEALER (Physician/DRIVEWAY SEALER ) ) Arrival Mode Wheelchair Wheelchair Transfer [...] Recorded Date Recorded By Document 05/04/23 09:03 AntuitF Desktop 05/04/23 09:06 BMF Document 05/18/23 09:04 [...] likely benefit from a stay at an [facility] during this time. Patient was informed [...] DVT, PE, and reaction to anesthesia. 05/19/23 6621 <Electronically signed by Kemi Rubio NP TWISTER TENDER PAPER-C> Cosigner Signature (if applicable): CC: ~ Signed [facility] Work Phone: 1(110) 378-833102-06-2024 Progress note Author Kemi Rubio [facility] May 05, 2023 9:37am Note Date/Time May 04, 2023 1 2:19pm [facility] [address] [place] [address] Progress Note - Wound Care 05/04/23 1219 MR#: [id number] Acct: [id number] Name: JORGE COVINGTON Rep #:[id number] : 1955 67 From: Kemi santiago TWISTER TENDER PAPER TWISTER TENDER PAPER-C PCP: Dr. Brian Cardona MD Status:RE G [...] Index (BMI) 35.5 Charges/Coding Procedures Integumentary 111xxx-113xx: 15062 Lillian musc/fascia 20 sq cm/< (ICD-10 - L89.314, M86.9, F17.200, Z99.3) Add On Codes: 15043 Lillian musc/fascia add-on (ICD-10 - L89.314, M86.9, [...] By Document 05/04/23 09:03 [facility] Desktop 05/04/23 09:06 [facility] 05/04/23 09:03 - Today's Visit Information Type of service Follow-up Visit (Physician/DRIVEWAY SEALER ) Arrival Mode Wheelchair Transfer Assistance Billy [...] By Document 05/04/23 09:03 [facility] Desktop 05/04/23 09:06 [facility] 05/04/23 09:03 Wound Center Nurse 1 [...] 0937 <Electronically signed by Kemi Rubio NP TWISTER TENDER PAPER-C> Cosigner Signature (if applicable): CC: ~ Signed [facility] Work Phone: 1(251) 752-856201-25-2024 Progress note Author Kemi Rubio [facility] April 23, 2023 5:04pm Note Date/Time April 21, 2023 4 :48pm [facility] [address] [place] [address] Progress Note - Wound Care 04/21/23 1648 MR#: [id number] Acct: [id number] Name: JORGE COVINGTON Rep #:[id number] : 1955 67 From: Kemi santiago NP TWISTER TENDER PAPER-C PCP: Dr. Brian Cardona MD Status:RE G [...] anaerobic bacteria isolated. Charges/Coding Procedures Integumentary 111xxx-113xx: 07124 Lillian musc/fascia 20 sq cm/< (ICD-10 - L89.314, M86.9, F17.200, Z99.3) Add On Codes: 83010 Lillian musc/fascia add-on (ICD-10 - L89.314, M86.9, [...] 04/06/23 09:30 DL Document 04/21/23 13:42 KW [id number] 04/21/23 13:45 KW 04/06/23 04/21/23 09:18 13:42 WC - Today's Visit Information Type of service Follow-up Visit Follow-up Visit (Physician/DRIVEWAY SEALER (Physician/DRIVEWAY SEALER ) ) Arrival Mode Wheelchair Wheelchair Transfer [...] 04/06/23 09:30 DL Document 04/21/23 13:42 KW [id number] 04/21/23 13:45 KW 04/06/23 04/21/23 09:18 13:42 [...] 1704 <Electronically signed by Kemi Rubio NP TWISTER TENDER PAPER-C> Cosigner Signature (if applicable): CC: ~ Signed [facility] Work Phone: 1(127) 463-660701-09-2024 Progress note Author Kemi [facility] April 07, 2023 2:22pm Note Date/Time April 06, 2023 11 :59am [facility] [address] [place] [address] Progress Note - Wound Care 04/06/23 1159 MR#: [id number] Acct: [id number] Name: JORGE COVINGTON Rep #:[id number] : 1955 67 From: Kemi santiago NP TWISTER TENDER PAPER-C PCP: Dr. Brian Cardona MD Status:[facility] Location: History of Present Illness Date [...] Index (BMI) 35.5 Charges/Coding Procedures Integumentary 111xxx-113xx: 52556 Lillian musc/fascia 20 sq cm/< (ICD-10 - L89.314, M86.9, F17.200, Z99.3) Add On Codes: 82446 Lillian musc/fascia add-on (ICD-10 - L89.314, M86.9, [...] Visit Information Type of service Follow-up Visit (Physician/DRIVEWAY SEALER ) Arrival Mode Wheelchair Transfer Assistance Billy [...] likely benefit from a stay at an [facility] during this time. Patient was informed [...] 1422 <Electronically signed by Kemi Rubio NP TWISTER TENDER PAPER-C> Cosigner Signature (if applicable): CC: ~ Signed [facility] Work Phone: 1(197) 924-960912-19-2023 Progress [facility] March 17, 2023 11:39am Note Date/Time March 16, 2023 11:54am [facility] [address] [place] [address] Progress Note - Wound Care 03/16/23 1154 MR#: [id number] Acct: [id number] Name: JORGE COVINGTON Rep #:[id number] : 1955 67 From: Kemi Jaquez DAVID TWISTER TENDER PAPER-C PCP: Dr. Brian Cardona MD Status:RE G [...] Index (BMI) 35.5 Charges/Coding Procedures Integumentary 111xxx-113xx: 96193 Lillian musc/fascia 20 sq cm/< (ICD-10 - L89.314, M86.9, F17.200, Z99.3) Add On Codes: 36091 Lillian musc/fascia add-on (ICD-10 - L89.314, M86.9, [...] By Document 03/02/23 10:58 [facility] Desktop 03/02/23 11:06 [facility] Document 03/16/23 08:57 Desktop 03/16/23 09:07 03/02/23 03/16/23 10:58 08:57 - Today's Visit Information Type of service Follow-up Visit Follow-up Visit (Physician/DRIVEWAY SEALER (Physician/DRIVEWAY SEALER ) ) Arrival Mode Wheelchair Wheelchair Transfer [...] By Document 03/02/23 10:58 [facility] Desktop 03/02/23 11:06 Antuit Document 03/16/23 08:57 Desktop 03/16/23 09:07 03/02/23 [...] Desktop 03/02/23 11:36 BMF Document 03/16/23 09:26 [employer] Desktop 03/16/23 09:26 BMF 03/02/23 03/16/23 11:35 09:26 Wound Care Center Nurse 3 #5- R ischium -Ulcer Cleansing Rinsed/ Rinsed/ Irrigated with Irrigated with Saline Saline -Foul Odor after Cleansing No No -Other Dressing dakin moist dakins moist gauze gauze -Primary Dressing Covered/Secured with Secured with Secured with Tape Tape -Other Covering abd; per dl engineer design and construction abd Treatment Response Procedure Procedure Tolerated Well [...] likely benefit from a stay at an [facility] during this time. Patient was informed [...] 1139 <Electronically signed by Kemi Rubio NP TWISTER TENDER PAPER-C> Cosigner Signature (if applicable): CC: ~ Signed [facility] Work Phone: 1(480) 898-781312-08-2023 Telephone encounter Note* Telephone Encounter - Adilene [...] Protocols used: Information Only Call - No [facility]QJME[id number] Miscellaneous Notes* Telephone Encounter - Adilene Campbell [...] Protocols used: Information Only Call - No [place]-LPTYG-LQ documented in this [facility]12-07-2023 Progress note Author Popeye Messina [facility] March 04, 2023 10:49pm Note Date/Time March 04, 2023 8 :33am [facility] [address] [place] [address] Progress Note - Wound Care 03/02/23 1240 MR#: [id number] Acct: [id number] Name: JORGE COVINGTON Rep #:[id number] : 1955 67 From: Popeye Walker [...] patient's lab results. Charges/Coding Procedures Integumentary 111xxx-113xx: 56101 Lillian musc/fascia 20 sq cm/< (ICD-10 - L89.314, M86.9, F17.200, Z99.3) Add On Codes: 80495 Lillian musc/fascia add-on (ICD-10 - L89.314, M86.9, [...] By Document 03/02/23 10:58 [facility] [employer] 03/02/23 11:06 [facility] 03/02/23 10:58 - Today's Visit Information Type of service Follow-up Visit (Physician/DRIVEWAY SEALER ) Arrival Mode Wheelchair Transfer Assistance Billy [...] By Document 03/02/23 10:58 [facility] [employer] 03/02/23 11:06 [facility] 03/02/23 10:58 Wound Center Nurse 1 [...] By Document 03/02/23 11:35 [facility] Desktop 03/02/23 11:36 [facility] 03/02/23 11:35 Wound Care Center Nurse 3 #5- R ischium -Ulcer Cleansing Rinsed/ Irrigated with Saline -Foul Odor after Cleansing No -Other Dressing dakin moist gauze -Primary Dressing Covered/Secured with Secured with Tape -Other Covering abd; per dl engineer design and construction Treatment Response Procedure Tolerated Well Pain Scale: [...] likely benefit from a stay at an [facility] during this time. Patient was informed [...] the Wound Center in 2 weeks. 03/04/23 3934 <Electronically signed by Popeye Messina MD> Cosigner Signature (if applicable): CC: ~ Signed [facility] Work Phone: 1(892) 697-324511-20-2023 Progress note Author Kemi Rubio [facility] February 16, 2023 11:10am Note Date/Time February 16, 2023 11:05am [facility] [address] [place] [address] Progress Note - Wound Care 02/16/23 1100 MR#: [id number] Acct: [id number] Name: JORGE COVINGTON Rep #:[id number] : 1955 67 From: Kemi santiago TWISTER TENDER PAPER TWISTER TENDER PAPER-C PCP: Dr. Brian Cardona MD Status:RE G [...] Index (BMI) 35.5 Charges/Coding Procedures Integumentary 111xxx-113xx: 13541 Lillian musc/fascia 20 sq cm/< Add On Codes: 97654 Lillian musc/fascia add-on Debridement Note Debridement Note [...] By Document 02/16/23 08:54 [facility] Desktop 02/16/23 09:02 [facility] 02/16/23 08:54 - Today's Visit Information Type of service Follow-up Visit (Physician/DRIVEWAY SEALER ) Arrival Mode Wheelchair Transfer Assistance Billy [...] By Document 02/16/23 08:54 [facility] Desktop 02/16/23 09:02 [facility] 02/16/23 08:54 Wound Center Nurse 1 [...] Status Wheelchair Transportation Private Auto Facility Type Group Activities Aide Care Facility Orders Sent Yes Assessment/Plan Assessment/Plan [...] 1110 <Electronically signed by Kemi Rubio NP TWISTER TENDER PAPER-C> Cosigner Signature (if applicable): CC: ~ Signed [facility] Work Phone: [phone]) 611-253710-27-2023 Progress note Author Kemi Rubio [facility] January 23, 2023 4:04pm Note Date/Time January 19, 2023 1 1:11am [facility] [address] [place] [address] Progress Note - Wound Care 01/19/23 1111 MR#: [id number] Acct: [id number] Name: JORGE COVINGTON Rep #:[id number] : 1955 67 From: Kemi santiago NP TWISTER TENDER PAPER-C PCP: Dr. Brian Cardona MD Status:RE G [...] Index (BMI) 35.5 Charges/Coding Procedures Integumentary 111xxx-113xx: 71013 Lillian musc/fascia 20 sq cm/< Add On Codes: 83559 Lillian musc/fascia add-on Debridement Note Debridement Note [...] Start: 12/29/22 08:13 Freq: Status: Active Protocol: ExtraOr[employer]o Activity Type Activity Date Activity User E-sign Co-sign Detail Recorded Client Recorded Date Recorded By Document 12/29/22 08:14 [facility] Desktop 12/29/22 08:15 [facility] Document 01/19/23 08:17 Desktop 01/19/23 08:18 12/29/22 01/19/23 08:14 08:17 - Today's Visit Information Type of service Follow-up Visit Follow-up Visit (Physician/DRIVEWAY SEALER (Physician/DRIVEWAY SEALER ) ) Arrival Mode Wheelchair Wheelchair Transfer [...] Dressing Sue,MÓNICA DAKINS MOIST GAUZE; PER DL SPOOLING OPERATOR -Primary Dressing Covered/Secured with Dry Gauze, Secured with Secured with Tape Tape -Other Covering ABD Treatment Response Procedure Tolerated Well Pain Scale: 0-10 Numeric Is Patient Pain Free? Yes Yes WC - Visit Discharge Discharge Condition Stable Stable Ambulatory Status Wheelchair Wheelchair Transportation [facility] Facility Type Home Health Assessment/Plan Assessment/Plan [...] 1604 <Electronically signed by Kemi Rubio NP TWISTER TENDER PAPER-C> Cosigner Signature (if applicable): CC: ~ Signed [facility] Work Phone: 1(236) 189-665710-05-2023 Progress note Author Kemi Rubio [facility] December 31, 2022 10:35pm Note Date/Time December 29, 2022 9: 47am [facility] [address] [place] [address] Progress Note - Wound Care 12/29/22 0947 MR#: [id number] Acct: [id number] Name: JORGE COVINGTON Rep #:[id number] : 1955 67 From: Kemi santiago NP TWISTER TENDER PAPER-C PCP: Dr. Brian Cardona MD Status:RE G [...] Index (BMI) 35.5 Charges/Coding Procedures Integumentary 111xxx-113xx: 07055 Lillian musc/fascia 20 sq cm/< Add On Codes: 68118 Lillian musc/fascia add-on Debridement Note Debridement Note [...] Start: 12/29/22 08:13 Freq: Status: Active Protocol: PulmonxRené Activity Type Activity Date Activity User E-sign Co-sign Detail Recorded Client Recorded Date Recorded By Document 12/29/22 08:14 [facility] Desktop 12/29/22 08:15 [facility] 12/29/22 08:14 WC - Today's Visit Information Type of service Follow-up Visit (Physician/DRIVEWAY SEALER ) Arrival Mode Wheelchair Transfer Assistance Billy [...] Document 12/29/22 08:14 BM Desktop 12/29/22 08:15 [facility] 12/29/22 08:14 Wound Center Nurse 1 [...] 12/31/222234 <Electronically signed by Kemi Rubio NP TWISTER TENDER PAPER-C> Cosigner Signature (if applicable): CC: ~ Signed [facility] Work Phone: [phone]) 673-420409-15-2023 Progress note Author Kemi Rubio [facility] December 12, 2022 12:58pm Note Date/Time December 08, 2022 9:33am [facility] [address] [place] [address] Progress Note - Wound Care 12/08/22 0932 MR#: [id number] Acct: [id number] Name: JORGE COVINGTON Rep #:[id number] : 1955 67 From: Kemi santiago NP TWISTER TENDER PAPER-C PCP: Dr. Brian Cardona MD Status:RE G [...] Index (BMI) 35.5 Charges/Coding Procedures Integumentary 111xxx-113xx: 34630 Lillian musc/fascia 20 sq cm/< Add On Codes: 60595 Lillian musc/fascia add-on Debridement Note Debridement Note [...] Recorded Date Recorded By Document 12/08/22 08:52 [id number] 12/08/22 08:54 RB 12/08/22 08:52 - Today's Visit Information Type of service Follow-up Visit (Physician/DRIVEWAY SEALER ) Arrival Mode Ambulatory Transfer Assistance None [...] Date Recorded By Document 12/08/22 08:52 RB [id number] 12/08/22 08:54 RB 12/08/22 08:52 Wound Center [...] Attached -Granulation Amt Medium (34-66%) -Granulation Quality Gholson -Slough/Fibrin Yes -Necrosis Amt Medium (34-66%) -Necrotic [...] Date Recorded By Document 12/08/22 09:09 ESTER [id number] 12/08/22 09:11 JF 12/08/22 09:09 Wound Center [...] Date Recorded By Document 12/08/22 09:16 KW [id number] 12/08/22 09:17 KW Document 12/08/22 09:27 DL [id number] 12/08/22 09:28 DL 12/08/22 12/08/22 09:16 09:27 [...] or come in sooner if needed. 12/12/22 0058 <Electronically signed by Kemi Rubio NP TWISTER TENDER PAPER-C> Cosigner Signature (if applicable): CC: ~ Signed [facility] Work Phone: 1([phone]) 296-473608-28-2023 Progress note Author Kari Romero [facility] November 24, 2022 8:35am Note Date/Time November 24, 2022 8: 36am [facility] Medical Records Department [address] [place] [address] Progress Note - Surgery 11/24/22 0832 MR#: [id number] Acct: [id number] Name: JORGE COVINGTON Rep #:[id number] : 1955 67 From: Kari Walker PCP: Dr. Brian Cardona MD Status:AD M IN Location: [place] [address] Subjective Subjective Patient seen and examined during [...] this afternoon. Charges/Coding Visit Charges Inpatient E&M: 67531 Subs Hosp L2 11/24/22 0835 <Electronically signed by Kari Romero MD> Cosigner Signature (if applicable): CC: ~ Signed [facility] Work Phone: 1(274) 884-227808-27-2023 Progress note [facility] November 23, 2022 10:10am Note Date/Time November 23, 2022 8: 37am [facility] Medical Records Department [address] [place] [address] Progress Note - Surgery 11/23/2237 MR#: [id number] Acct: [id number] Name: JORGE COVINGTON Rep #:[id number] : 1955 67 From: Nakita Arroyo MD PCP: Dr. Brian Cardona MD Status:AD M IN Location: [place] [address] Subjective Subjective Patient tolerating diet and having [...] Continue home meds. Nakita Arroyo M.D. Pager: [phone] [facility] [address] [place] [address], [facility], [address] [place] [address] Office: [phone] 11/23/22 0958 <Electronically signed by Nakita Arroyo MD> Cosigner Signature (if applicable): CC: ~ Signed ADDENDUM by Dr. Nakita Arroyo MD on 11/23/22 at 1010 Addendum benson was in for i/o-- will d/c 11/23/22 1010<Electronically signed by Nakita Arroyo MD> Cosigner Signature (if applicable): cc: ~* Signed [facility] Work Phone: 1(935) 882-376808-26-2023 Progress note Author Nakita Arroyo [facility] November 22, 2022 8:01am Note Date/Time November 22, 2022 8: 01am [facility] Medical Records Department [address] [place] [address] Progress Note - Surgery 11/22/22 0702 MR#: [id number] Acct: [id number] Name: JORGE COVINGTON Rep #:[id number] : 1955 67 From: Nakita Arroyo MD PCP: Dr. Brian Cardona MD Status:AD M IN Location: [place] [address] Subjective Subjective Patient tolerating clears having brown [...] patient's home meds. Nakita Arroyo M.D. Pager: [phone] [facility] [address] [place] [address], [facility], [address] [place] [address] Office: [phone] 11/22/22 0801 <Electronically signed by Nakita Arroyo MD> Cosigner Signature (if applicable): CC: ~ Signed [facility] Work Phone: 1(722) 736-402208-25-2023 History and physical note Author Kari Romero [facility] November 21, 2022 7:30am Note Date/Time November 21, 2022 7: 30am [facility] Medical Records Department [address] [place] [address] History & Physical Exam 11/21/22728 MR#: [id number] Acct: [id number] Name: JORGE COVINGTON Rep #:[id number] : 1955 67 From: Kari Walker PCP: Dr. Brian Cardona MD Status:[facility] Location: [place] [address] History and Physical Date of Service: 09/05/22 MR#: [id number] Acct: [id number] Name: JORGE COVINGTON Rep #: [id number] : 1955 Provider: Dr. Kari Romero MD Age/Sex: 67/M Location: [facility] Status: Signed Intake Vital Signs 06/19/2311:17 09/06/2307:48 Height 5 ft 6 in BP 117/69 Blood Pressure Location Rt radial Position Sitting Respiration 18 Pulse 80 Pulse Source Monitor Temp 97.3 F L Temp Source Temporal Pulse Oximetry (%) 95 Oxygen Delivery Method room air Intake Visit Reasons: UPDATE H&P FOR COLOSTOMY Chief Complaint: Update H&P/ Discuss Colostomy Advertising Designer Required: No Is patient in pain?: No [...] 09/05/22] arginine 7 gram-glutam 7 gram-CaHMB 1.5 ignq-jojyx-jp-min oral pwd pkt (Edgar (with collagen)) 1 [...] Postoperatively patient will be admitted to the [facility] floor for observation. 11/21/22 0730 <Electronically signed by Kari Romero MD> Cosigner Signature (if applicable): CC: Dr. Kari Romero MD; Dr. Brian Cardona MD~ Signed [facility] Work Phone: 1(191) 997-661608-20-2023 Progress note Author Kemi Rubio [facility] November 16, 2022 7:11pm Note Date/Time November 10, 2022 12 :25pm [facility] [address] [place] [address] Progress Note - Wound Care 11/10/22 1225 MR#: [id number] Acct: [id number] Name: JORGE COVINGTON Rep #:[id number] : 1955 67 From: Kemi santiago TWISTER TENDER PAPER TWISTER TENDER PAPER-C PCP: Care Physician,No Primary Status :REG RCR [...] Index (BMI) 35.5 Charges/Coding Procedures Integumentary 111xxx-113xx: 35935 Lillian musc/fascia 20 sq cm/< Add On Codes: 08013 Lillian musc/fascia add-on Debridement Note Debridement Note [...] By Document 11/10/22 08:37 [facility] [id number] 11/10/22 08:43 [facility] 11/10/22 08:37 - Today's Visit Information Type of service Follow-up Visit (Physician/DRIVEWAY SEALER ) Arrival Mode Wheelchair Transfer Assistance Billy [...] By Document 11/10/22 08:37 [facility] [id number] 11/10/22 08:43 [facility] 11/10/22 08:37 Wound Center Nurse 1 [...] Date Recorded By Document 11/10/22 09:11 ESTER [id number] 11/10/22 09:17 ESTER 11/10/22 09:11 Wound Center [...] Recorded Date Recorded By Document 11/10/22 09:20 [id number] 11/10/22 09:21 11/10/22 09:20 Wound Care Center [...] 11/16/221910 <Electronically signed by Kemi Rubio NP TWISTER TENDER PAPER-C> Cosigner Signature (if applicable): CC: ~ Signed [facility] Work Phone: 1(843) 585-587307-24-2023 Progress note Author Kemi Rubio [facility] October 20, 2022 10:26am Note Date/Time October 20, 2022 10:1 9am [facility] [address] [place] [address] Progress Note - Wound Care 10/20/22 1017 MR#: [id number] Acct: [id number] Name: JOREG COVINGTON Rep #:[id number] : 1955 67 From: Kemi santiago TWISTER TENDER PAPER TWISTER TENDER PAPER-C PCP: Care Physician,No Primary Status :REG RCR [...] Index (BMI) 35.5 Charges/Coding Procedures Integumentary 111xxx-113xx: 40928 Lillian musc/fascia 20 sq cm/< Add On Codes: 17468 Lillian musc/fascia add-on (x1) Debridement Note Debridement [...] By Document 10/06/22 08:38 [facility] [id number] 10/06/22 08:48 [facility] Document 10/20/22 08:28 [facility] [id number] 10/20/22 08:32 BMF 10/06/22 10/20/22 08:38 08:28 - Today's Visit Information Type of service Follow-up Visit Follow-up Visit (Physician/DRIVEWAY SEALER (Physician/DRIVEWAY SEALER ) ) Arrival Mode Wheelchair Wheelchair Transfer [...] By Document 10/06/22 08:38 [facility] [id number] 10/06/22 08:48 [facility] Document 10/20/22 08:28 [facility] [id number] 10/20/22 08:32 [facility] 10/06/22 10/20/22 08:38 08:28 Wound Center Nurse [...] Recorded Date Recorded By Document 10/06/22 09:07 [id number] 10/06/22 09:10 Document 10/20/22 09:02 [id number] 10/20/22 09:05 MW 10/06/22 10/20/22 09:07 09:02 [...] Recorded Date Recorded By Document 10/06/22 09:13 [id number] 10/06/22 09:14 Document 10/20/22 09:10 KW [id number] 10/20/22 09:11 10/06/22 10/20/22 09:13 09:10 Wound [...] 1026 <Electronically signed by Kemi Rubio NP TWISTER TENDER PAPER-C> Cosigner Signature (if applicable): CC: ~ Signed [facility] Work Phone: 1(625) 522-126007-10-2023 Progress note Author Kemi Rubio [facility] October 06, 2022 2:08pm Note Date/Time October 06, 2022 9:27 am [facility] [address] [place] [address] Progress Note - Wound Care 10/06/22 0925 MR#: [id number] Acct: [id number] Name: JORGE COVINGTON Rep #:[id number] 1 : 1955 67 From: Kemi E Swinde ll TWISTER TENDER PAPER TWISTER TENDER PAPER-C PCP: Care Physician,No Primary Status :REG RCR [...] Index (BMI) 35.5 Charges/Coding Procedures Integumentary 111xxx-113xx: 36961 Lillian musc/fascia 20 sq cm/< Add On Codes: 94942 Lillian musc/fascia add-on Debridement Note Debridement Note [...] By Document 10/06/22 08:38 [facility] [id number] 10/06/22 08:48 [facility] 10/06/22 08:38 - Today's Visit Information Type of service Follow-up Visit (Physician/DRIVEWAY SEALER ) Arrival Mode Wheelchair Transfer Assistance Billy [...] By Document 10/06/22 08:38 [facility] [id number] 10/06/22 08:48 [facility] 10/06/22 08:38 Wound Center Nurse 1 [...] Date Recorded By Document 10/06/22 09:07 ESTER [id number] 10/06/22 09:10 10/06/22 09:07 Wound Center Nurse [...] Date Recorded By Document 10/06/22 09:13 ESTER [id number] 10/06/22 09:14 ESTER 10/06/22 09:13 Wound Care [...] or come in sooner if needed. 10/06/22 1742 <Electronically signed by Kemi Rubio NP TWISTER TENDER PAPER-C> Cosigner Signature (if applicable): CC: ~ Signed [facility] Work Phone: [phone]) 414-145506-27-2023 Progress note Author Kemi Rubio [facility] September 23, 2022 12:51pm Note Date/Time September 15, 2022 9:24 am [facility] [address] [place] [address] Progress Note - Wound Care 09/15/22 0924 MR#: [id number] Acct: [id number] Name: JORGE COVINGTON Rep #:[id number] 1 : 1955 67 From: Kemi santiago TWISTER TENDER PAPER TWISTER TENDER PAPER-C PCP: Care Physician,No Primary Status :REG RCR [...] Index (BMI) 35.5 Charges/Coding Procedures Integumentary 111xxx-113xx: 36086 Lillian musc/fascia 20 sq cm/< Add On Codes: 21381 Lillian musc/fascia add-on Debridement Note Debridement Note [...] Date Recorded By Document 09/01/22 09:10 DL [id number] 09/01/22 09:22 DL Document 09/15/22 08:09 BM [id number] 09/15/22 08:13 BMF 09/01/22 09/15/22 09:10 08:09 - Today's Visit Information Type of service Follow-up Visit Follow-up Visit (Physician/DRIVEWAY SEALER (Physician/DRIVEWAY SEALER ) ) Arrival Mode Wheelchair Wheelchair Transfer [...] Date Recorded By Document 09/01/22 09:10 DL [id number] 09/01/22 09:22 DL Document 09/15/22 08:09 [facility] [id number] 09/15/22 08:13 [facility] 09/01/22 09/15/22 09:10 08:09 Wound Center [...] Recorded Date Recorded By Document 09/01/22 09:52 [id number] 09/01/22 09:55 Document 09/15/22 09:07 PL [id number] 09/15/22 09:09 PL 09/01/22 09/15/22 09:52 09:07 [...] By Document 09/01/22 10:09 [facility] [id number] 09/01/22 10:10 [facility] Document 09/15/22 08:54 [id number] 09/15/22 08:55 DL 09/01/22 09/15/22 10:09 08:54 [...] 1251 <Electronically signed by Kemi Rubio NP TWISTER TENDER PAPER-C> Cosigner Signature (if applicable): CC: ~ Signed [facility] Work Phone: [phone]) 448-912006-11-2023 Progress note Author Kemi Rubio [facility] September 06, 2022 10:52pm Note Date/Time September 01, 2022 1:00p m [facility] [address] [place] [address] Progress Note - Wound Care 09/01/22 1300 MR#: [id number] Acct: [id number] Name: JORGE COVINGTON Rep #:[id number] : 1955 67 From: Kemi santiago TWISTER TENDER PAPER TWISTER TENDER PAPER-C PCP: Care Physician,No Primary Status :REG RCR [...] Index (BMI) 35.5 Charges/Coding Procedures Integumentary 111xxx-113xx: 92069 Lillian musc/fascia 20 sq cm/< Add On Codes: 73832 Lillian musc/fascia add-on Debridement Note Debridement Note [...] Date Recorded By Document 09/01/22 09:10 DL [id number] 09/01/22 09:22 DL 09/01/22 09:10 - Today's Visit Information Type of service Follow-up Visit (Physician/DRIVEWAY SEALER ) Arrival Mode Wheelchair Transfer Assistance Billy [...] Date Recorded By Document 09/01/22 09:10 DL [id number] 09/01/22 09:22 DL 09/01/22 09:10 Wound Center [...] Recorded Date Recorded By Document 09/01/22 09:52 [id number] 09/01/22 09:55 09/01/22 09:52 Wound Center Nurse [...] By Document 09/01/22 10:09 [facility] [id number] 09/01/22 10:10 [facility] 09/01/22 10:09 Wound Care Center Nurse [...] or come in sooner if needed. 09/06/22 4893 <Electronically signed by Kemi Rubio NP TWISTER TENDER PAPER-C> Cosigner Signature (if applicable): CC: ~ Signed [facility] Work Phone: 1([phone]) 485-148805-28-2023 Progress note Author Kemi Rubio [facility] August 24, 2022 1:14pm Note Date/Time August 18, 2022 11:31 am [facility] [address] [place] [address] Progress Note - Wound Care 08/18/22 1131 MR#: [id number] Acct: [id number] Name: JORGE COVINGTON Rep #:[id number] : 1955 67 From: Kemi santiago TWISTER TENDER PAPER TWISTER TENDER PAPER-C PCP: Care Physician,No Primary Status :REG RCR [...] Index (BMI) 35.5 Charges/Coding Procedures Integumentary 111xxx-113xx: 59352 Lillian musc/fascia 20 sq cm/< Add On Codes: 99796 Lillian musc/fascia add-on Debridement Note Debridement Note [...] Date Recorded By Document 07/28/22 09:10 DL [id number] 07/28/22 09:13 DL Document 08/18/22 08:35 [facility] [id number] 08/18/22 08:44 BM 07/28/22 08/18/22 09:10 08:35 - Today's Visit Information Type of service Follow-up Visit Follow-up Visit (Physician/DRIVEWAY SEALER (Physician/DRIVEWAY SEALER ) ) Arrival Mode Wheelchair Wheelchair Transfer [...] Date Recorded By Document 07/28/22 09:10 DL [id number] 07/28/22 09:13 DL Document 08/18/22 08:35 [facility] [id number] 08/18/22 08:44 BMF 07/28/22 08/18/22 09:10 08:35 [...] Date Recorded By Document 07/28/22 09:24 ESTER [id number] 07/28/22 09:26 JF Edit Result 07/28/22 09:24 ESTER (1) [id number] 07/29/22 06:33 PL Document 08/18/22 09:14 [id number] 08/18/22 09:17 ESTER (1) #5- R ischium [...] Date Recorded By Document 07/28/22 09:50 PL [id number] 07/28/22 09:51 PL Document 08/18/22 09:21 [facility] [id number] 08/18/22 09:22 [facility] 07/28/22 08/18/22 09:50 09:21 Wound Care Center Nurse 3 #5- R ischium -Ulcer Cleansing Rinsed/ Rinsed/ Irrigated with Irrigated with Saline Saline -Foul Odor after Cleansing No No -Primary Dressing Applied Hysept ($) -Other Dressing mónica Rogers moist gauze; per ak engineer design and construction -Primary Dressing Covered/Secured with Secured with Secured [...] 1314 <Electronically signed by Kemi Rubio NP TWISTER TENDER PAPER-C> Cosigner Signature (if applicable): CC: ~ Signed [facility] Work Phone: 1([phone]) 669-736505-09-2023 Progress note Author Kemi Rubio [facility] August 05, 2022 3:38pm Note Date/Time July 28, 2022 12:17p m [facility] [address] [place] [address] Progress Note - Wound Care 07/28/22 1217 MR#: [id number] Acct: [id number] Name: JORGE COVINGTON Rep #:[id number] 3 : 1955 66 From: Kemi santiago TWISTER TENDER PAPER TWISTER TENDER PAPER-C PCP: Care Physician,No Primary Status :REG R [...] Index (BMI) 35.5 Charges/Coding Procedures Integumentary 111xxx-113xx: 68692 Lillian musc/fascia 20 sq cm/< Add On Codes: 62812 Lillian musc/fascia add-on Debridement Note Debridement Note [...] Date Recorded By Document 07/28/22 09:10 DL [id number] 07/28/22 09:13 DL 07/28/22 09:10 - Today's Visit Information Type of service Follow-up Visit (Physician/DRIVEWAY SEALER ) Arrival Mode Wheelchair Transfer Assistance Billy [...] Date Recorded By Document 07/28/22 09:10 ARVIN [id number] 07/28/22 09:13 DL 07/28/22 09:10 Wound Center [...] Date Recorded By Document 07/28/22 09:24 ESTER [id number] 07/28/22 09:26 ESTER 07/28/22 09:24 Wound Center [...] Date Recorded By Document 07/28/22 09:50 PL [id number] 07/28/22 09:51 PL 07/28/22 09:50 Wound Care [...] or come in sooner if needed. 08/05/22 3869 <Electronically signed by Kemi Rubio NP TWISTER TENDER PAPER-C> Cosigner Signature (if applicable): CC: ~ Signed [facility] Work Phone: 1(232) 349-762704-23-2023 Progress note Author Kemi Rubio [facility] July 20, 2022 6:50pm Note Date/Time July 14, 2022 12: 07pm [facility] [address] [place] [address] Progress Note - Wound Care 07/14/22 1206 MR#: [id number] Acct: [id number] Name: JORGE COVINGTON Rep #:[id number] 3 : 1955 66 From: Kemi santiago NP TWISTER TENDER PAPER-C PCP: Care Physician,No Primary Status :REG RCR [...] Index (BMI) 35.5 Charges/Coding Procedures Integumentary 111xxx-113xx: 44237 Global Visit Debridement Note Debridement Note Wound [...] Start: 06/30/22 08:16 Freq: Status: Active Protocol: DILCIA.Sanrad Activity Type Activity Date Activity User E-sign Co-sign Detail Recorded Client Recorded Date Recorded By Document 06/30/22 08:16 DL [id number] 06/30/22 08:24 DL Document 07/14/22 08:21 DL [id number] 07/14/22 08:29 DL 06/30/22 07/14/22 08:16 08:21 - Today's Visit Information Type of service Follow-up Visit Follow-up Visit (Physician/DRIVEWAY SEALER (Physician/DRIVEWAY SEALER ) ) Arrival Mode Wheelchair Wheelchair Transfer [...] Date Recorded By Document 06/30/22 08:16 DL [id number] 06/30/22 08:24 DL Document 07/14/22 08:21 DL [id number] 07/14/22 08:29 DL 06/30/22 07/14/22 08:16 08:21 [...] Date Recorded By Document 06/30/22 09:08 ESTER [id number] 06/30/22 09:16 JF Edit Result 06/30/22 09:08 JF (1) [id number] 07/01/22 06:53 PL Document 07/14/22 09:24 JF [id number] 07/14/22 09:31 JF (1) #5- R ischium [...] Date Recorded By Document 06/30/22 09:31 PL [id number] 06/30/22 09:32 PL Document 07/14/22 09:47 DL [id number] 07/14/22 09:47 DL 06/30/22 07/14/22 09:31 09:47 [...] 1850 <Electronically signed by Kemi Rubio NP TWISTER TENDER PAPER-C> Cosigner Signature (if applicable): CC: ~ Signed [facility] Work Phone: [phone]) 118-871104-08-2023 Progress note Author Kemi Rubio [facility] July 05, 2022 9:24pm Note Date/Time June 30, 2022 9:36 am [facility] [address] [place] [address] Progress Note - Wound Care 06/30/22 0936 MR#: [id number] Acct: [id number] Name: JORGE COVINGTON Rep #:[id number] : 1955 66 From: Kemi santiago NP TWISTER TENDER PAPER-C PCP: Care Physician,No Primary Status :REG RCR [...] Index (BMI) 35.5 Charges/Coding Procedures Integumentary 111xxx-113xx: 64016 Global Visit Debridement Note Debridement Note Wound [...] Date Recorded By Document 06/30/22 08:16 DL [id number] 06/30/22 08:24 DL 06/30/22 08:16 WC - Today's Visit Information Type of service Follow-up Visit (Physician/DRIVEWAY SEALER ) Arrival Mode Wheelchair Transfer Assistance Billy [...] Recorded Date Recorded By Document 06/30/22 08:16 [id number] 06/30/22 08:24 06/30/22 08:16 Wound Center Nurse [...] Recorded Date Recorded By Document 06/30/22 09:08 [id number] 06/30/22 09:16 ESTER 06/30/22 09:08 Wound Center [...] Date Recorded By Document 06/30/22 09:31 PL [id number] 06/30/22 09:32 PL 06/30/22 09:31 Wound Care [...] 07/05/222123 <Electronically signed by Kemi Rubio NP TWISTER TENDER PAPER-C> Cosigner Signature (if applicable): CC: ~ Signed [facility] Work Phone: 1(245) 772-665603-22-2023 History and physical note Author Dr. Romero [facility] June 18, 2022 12:40pm Note Date/Time June 18, 2022 12: 40pm [facility] Medical Records Department [address] [place] [address] History & Physical Exam 06/18/22 1237 MR#: [id number] Acct: [id number] Name: JORGE COVINGTON Rep #:[id number] : 1955 66 From: Kari Walker PCP: Care Physician,No Primary Status :REG [facility] Location: [place] [address] History and Physical Date of Admission: 06/18/22 Date of Service:? 05/27/22 MR#: [id number] Acct: [id number] Name:? JORGE COVINGTON Rep #: [id number] : 1955 ? ? Provider: Dr. Kari Romero MD Age/Sex:? 66/M ? ? Location: [facility] Status: Signed Intake Vital Signs ? 04/28/2316:34 05/02/2311:00 05/27/2312:34 Height 5 ft 6 in 5 ft 6 in 5 ft 6 in Weight: ? ? 188 lb BMI ? ? 30.3 BP ? ? 139/70 H Blood Pressure Location ? ? Rt brachial Position ? ? Sitting Respiration ? ? 18 Intake Visit Reasons:?DISCUSS COLOSTOMY CREATION Chief Complaint: Discuss ostomy Advertising Designer Required: No Is patient in pain?: No [...] 05/27/22] arginine 7 gram-glutam 7 gram-CaHMB 1.5 ssvp-ttfiu-oi-min oral pwd pkt (Edgar (with collagen)) 1 [...] that he will need to have a school bus driver/custodian with him the day of the procedure. [...] Romero MD; No Primary Care Physician~ Signed [facility] Work Phone: 1(807) 587-531703-22-2023 Procedure [facility] 06-11-2022 Progress note Author Kemi Rubio [facility] June 11, 2022 8:32am Note Date/Time June 09, 2022 1:0 9pm [facility] [address] [place] [address] Progress Note - Wound Care 06/09/22 1308 MR#: [id number] Acct: [id number] Name: JORGE COVINGTON Rep #:[id number] : 1955 66 From: Kemi santiago TWISTER TENDER PAPER TWISTER TENDER PAPER-C PCP: Dr. Brian Cardona MD Status:RE G [...] Index (BMI) 35.5 Charges/Coding Procedures Integumentary 111xxx-113xx: 44520 Global Visit Debridement Note Debridement Note Wound [...] By Document 06/09/22 08:15 [facility] [id number] 06/09/22 08:25 [facility] 06/09/22 08:15 - Today's Visit Information Type of service Follow-up Visit (Physician/DRIVEWAY SEALER ) Arrival Mode Wheelchair Transfer Assistance Billy [...] By Document 06/09/22 08:15 [facility] [id number] 06/09/22 08:25 [facility] 06/09/22 08:15 Wound Center Nurse 1 [...] Recorded Date Recorded By Document 06/09/22 08:45 [id number] 06/09/22 08:47 ESTER 06/09/22 08:45 Wound Center [...] By Document 06/09/22 08:53 [facility] [id number] 06/09/22 08:54 [facility] 06/09/22 08:53 Wound Care Center Nurse 3 #5- R ischium -Ulcer Cleansing Rinsed/ Irrigated with Saline -Foul Odor after Cleansing No -Primary Dressing Applied Hysept ($) -Other Dressing abd; drsg per dl engineer design and construction -Primary Dressing Covered/Secured with Secured with Tape [...] 0832 <Electronically signed by Kemi Rubio NP TWISTER TENDER PAPER-C> Cosigner Signature (if applicable): CC: ~ Signed [facility] Work Phone: [phone]) 900-841902-27-2023 Progress note Author Kemi Rubio [facility] May 26, 2022 10:41am Note Date/Time May 26, 2022 10:38am [facility] [address] [place] [address] Progress Note - Wound Care 05/26/22 1032 MR#: [id number] Acct: [id number] Name: JORGE COVINGTON Rep #:[id number] : 1955 66 From: Kemi santiago NP TWISTER TENDER PAPER-C PCP: Dr. Brian Cardona MD Status:RE G [...] Index (BMI) 35.5 Charges/Coding Procedures Integumentary 111xxx-113xx: 76299 Global Visit Debridement Note Debridement Note Wound [...] By Document 05/05/22 10:54 [facility] [id number] 05/05/22 10:57 BM Document 05/12/22 08:40 BMF [id number] 05/12/22 08:49 BMF Document 05/26/22 08:40 DL [id number] 05/26/22 08:42 DL 05/05/22 05/12/22 05/26/22 10:54 08:40 08:40 - Today's Visit Information Type of service Follow-up Visit Follow-up Visit Follow-up Visit (Physician/DRIVEWAY SEALER (Physician/DRIVEWAY SEALER (Physician/DRIVEWAY SEALER ) ) ) Arrival Mode Wheelchair Wheelchair [...] By Document 05/05/22 10:54 [facility] [id number] 05/05/22 10:57 BMF Document 05/12/22 08:40 BMF [id number] 05/12/22 08:49 BMF Document 05/26/22 08:40 DL [id number] 05/26/22 08:42 DL 05/05/22 05/12/22 05/26/22 10:54 [...] By Document 05/05/22 11:08 [facility] [id number] 05/05/22 11:14 [facility] Document 05/12/22 09:05 [id number] 05/12/22 09:06 Document 05/26/22 09:42 [id number] 05/26/22 09:44 05/05/22 05/12/22 05/26/22 11:08 09:05 [...] By Document 05/05/22 11:20 [facility] [id number] 05/05/22 11:21 BMF Document 05/12/22 09:15 ML [id number] 05/12/22 09:15 ML Document 05/26/22 09:47 DL [id number] 05/26/22 09:48 DL 05/05/22 05/12/22 05/26/22 11:20 [...] -Other Covering abd; drsg per ABD ak engineer design and construction Treatment Response Procedure Procedure Tolerated Well Tolerated Well Pain Scale: 0-10 Numeric Is Patient Pain Free? Yes Yes Yes WC - Visit Discharge Discharge Condition Stable Stable Ambulatory Status Wheelchair Wheelchair Transportation [facility] Accompanied by Facility Type Home [...] 1041 <Electronically signed by Kemi Rubio NP TWISTER TENDER PAPER-C> Cosigner Signature (if applicable): CC: ~ Signed [facility] Work Phone: [phone]) 146-629702-15-2023 Progress note Author Kemi Rubio [facility] May 14, 2022 5:43pm Note Date/Time May 12, 2022 11:40am [facility] [address] [place] [address] Progress Note - Wound Care 05/12/22 1140 MR#: [id number] Acct: [id number] Name: JORGE COVINGTON Rep #:[id number] : 1955 66 From: Kemi santiago TWISTER TENDER PAPER TWISTER TENDER PAPER-C PCP: Dr. Brian Cardona MD Status:RE G [...] Index (BMI) 35.5 Charges/Coding Procedures Integumentary 111xxx-113xx: 84615 Global Visit Debridement Note Debridement Note Wound [...] By Document 05/05/22 10:54 [facility] [id number] 05/05/22 10:57 [facility] Document 05/12/22 08:40 [facility] [id number] 05/12/22 08:49 [facility] 05/05/22 05/12/22 10:54 08:40 - Today's Visit Information Type of service Follow-up Visit Follow-up Visit (Physician/DRIVEWAY SEALER (Physician/DRIVEWAY SEALER ) ) Arrival Mode Wheelchair Wheelchair Transfer [...] By Document 05/05/22 10:54 [facility] [id number] 05/05/22 10:57 [facility] Document 05/12/22 08:40 [facility] [id number] 05/12/22 08:49 [facility] 05/05/22 05/12/22 10:54 08:40 Wound Center [...] By Document 05/05/22 11:08 [facility] [id number] 05/05/22 11:14 [facility] Document 05/12/22 09:05 [id number] 05/12/22 09:06 05/05/22 05/12/22 11:08 09:05 Wound [...] By Document 05/05/22 11:20 [facility] [id number] 05/05/22 11:21 [facility] Document 05/12/22 09:15 ML [id number] 05/12/22 09:15 ML 05/05/22 05/12/22 11:20 09:15 Wound Care Center Nurse 3 #5- R ischium -Ulcer Cleansing Rinsed/ Rinsed/ Irrigated with Irrigated with Saline Saline -Foul Odor after Cleansing No No -Other Dressing dakins moist DAKINS gauze MOISTENED GAUZE -Primary Dressing Covered/Secured with Dry Gauze, Secured with Tape -Other Covering abd; drsg per ak engineer design and construction Treatment Response Procedure Tolerated Well Pain Scale: 0-10 Numeric Is Patient Pain Free? Yes Yes WC - Visit Discharge Discharge Condition Stable Ambulatory Status Wheelchair Transportation [facility] Accompanied by Facility Type Home Health [...] or come in sooner if needed. 05/14/22 6663 <Electronically signed by Kemi Rubio NP TWISTER TENDER PAPER-C> Cosigner Signature (if applicable): CC: ~ Signed [facility] Work Phone: [phone]) [phone] Progress note Author Kemibehzad Rubio [facility] May 11, 2022 8:31pm Note Date/Time May 05, 2022 1 1:35am [facility] [address] [place] [address] Progress Note - Wound Care 05/05/22 1135 MR#: [id number] Acct: [id number] Name: JORGE COVINGTON Rep #:[id number] 1 : 1955 66 From: Kemi santiago TWISTER TENDER PAPER TWISTER TENDER PAPER-C PCP: Dr. Brian Cardona MD Status:RE G [...] Index (BMI) 35.5 Charges/Coding Procedures Integumentary 111xxx-113xx: 87432 Global Visit Physical Exam Const alert General [...] By Document 05/05/22 10:54 [facility] [id number] 05/05/22 10:57 [facility] 05/05/22 10:54 WC - Today's Visit Information Type of service Follow-up Visit (Physician/DRIVEWAY SEALER ) Arrival Mode Wheelchair Transfer Assistance Billy [...] 0-10 Numeric Is Patient Pain Free? Yes [facility] Nurse 1 - General Ulcer Measurement Start: 05/05/22 10:54 Freq: Status: Active Protocol: Activity Type Activity Date Activity User E-sign Co-sign Detail Recorded Client Recorded Date Recorded By Document 05/05/22 10:54 [facility] [id number] 05/05/22 10:57 [facility] 05/05/22 10:54 Wound Center Nurse 1 [...] By Document 05/05/22 11:08 [facility] [id number] 05/05/22 11:14 [facility] 05/05/22 11:08 Wound Center Nurse 2 [...] By Document 05/05/22 11:20 [facility] [id number] 05/05/22 11:21 [facility] 05/05/22 11:20 Wound Care Center Nurse 3 #5- R ischium -Ulcer Cleansing Rinsed/ Irrigated with Saline -Foul Odor after Cleansing No -Other Dressing dakins moist gauze -Other Covering abd; drsg per ak engineer design and construction Treatment Response Procedure Tolerated Well Pain Scale: 0-10 Numeric Is Patient Pain Free? Yes WC - Visit Discharge Discharge Condition Stable Ambulatory Status Wheelchair Transportation [facility] Accompanied by Facility Type Home Health [...] care. I spoke with our social media marketer/case management at the hospital and they stated [...] 05/11/222030 <Electronically signed by Kemi Rubio NP TWISTER TENDER PAPER-C> Cosigner Signature (if applicable): CC: ~ Signed [facility] Work Phone: 1(149) [phone] Singh [facility] May 02, 2022 3:10pm Note Date/Time May 02, 2022 1 2:35pm [facility] Medical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 [...] 57 Minutes Charges/Coding Visit Charges Inpatient E&M: 25201 Init Hosp L2 06/09/24 1216 <Electronically signed by Juliana Shaw MD> Cosigner Signature (if applicable): CC: Dr. Juliana Shaw MD; Dr. Brian Cardona MD~ Signed [facility] Work Phone: History and physical note [facility] Medical Records Department [address] [place] [address] H&P Exam - Hospitalist 01/17/25 1239 MR#: [id number] Acct: [id number] Name: JORGE COVINGTON Rep #:[id number] : 1955 69 From: Basilio Dill DO PCP: Dr. Brian Cardona MD Status:AD M IN Location: [place] [id number]- [id number] HPI - General General Date of Admission: 01/17/25 Date of Service: 01/17/25 Chief Complaint: confusion. HPI Narrative JORGE COVINGTON, is a 69 M who presents with change in mental status. This is [id number] male with history of chronic Benson and diverting colostomy presents with confusion at home. Visiting nurse saw him and sent him to the emergency room. In emergency room, patient had a lactic acid of 2.1, he was ordered IV fluids as well as antibiotics given concern for urinary tract infection with ceftriaxone. Patient is a poor historian. [ ] [facility] Medical History (Updated 01/17/25 @ 12:50 by [...] Neut% (Auto) 63.4, Lymph % (Auto) 21.3, Defiance % (Auto) 9.5, Eos % (Auto) 4.1, [...] Clarity Cloudy, Urine pH 6.0, Ur Specific [place] 1.020, Urine Protein 30 H, Urine Glucose [...] bases suggestive of bibasilar atelectasis. Reading Location: [facility] Assessment & Plan Assessment/Plan (1) Sepsis: [...] prophylaxis with Charges/Coding Visit Charges Inpatient E&M: 25020 Init Hosp L2 01/17/25 1251 Cosigner Signature (if applicable): CC: Dr. Basilio Dill DO; Dr. Brian Cardona MD~ [facility]igned [facility] Author Basilio Dill [facility] Note Date/Time January 17, 2025 1 :51pm [facility] Medical Records Department [address] [place] [address] H&P Exam - Hospitalist 01/17/25 1239 MR#: [id number] Acct: [id number] Name: JORGE COVINGTON Rep #:[id number] : 1955 69 From: Basilio Dill DO PCP: Dr. Brian Cardona MD Status:AD M IN Location: [place] [id number]- 1 HPI - General General Date of Admission: 01/17/25 Date of Service: 01/17/25 Chief Complaint: confusion. HPI Narrative JORGE COVINGTON, is a 69 M who presents with change in mental status. This is [id number] male with history of chronic Benson and diverting colostomy presents with confusion at home. Visiting nurse saw him and sent him to the emergency room. In emergency room, patient had a lactic acid of 2.1, he was ordered IV fluids as well as antibiotics given concern for urinary tract infection with ceftriaxone. Patient is a poor historian. [ ] [facility] Medical History (Updated 01/17/25 @ 12:50 by [...] % (Auto) 63.4, Lymph % (Auto) 21.3, Defiance % (Auto) 9.5, Eos % (Auto) 4.1, [...] Clarity Cloudy, Urine pH 6.0, Ur Specific [place] 1.020, Urine Protein 30 H, Urine Glucose [...] bases suggestive of bibasilar atelectasis. Reading Location: [facility]- Assessment & Plan Assessment/Plan (1) Sepsis: PLAN: [...] prophylaxis with Charges/Coding Visit Charges Inpatient E&M: 89980 Init Hosp L2 01/17/25 1251 <Electronically signed by Basilio Jopperi DO> Cosigner Signature (if applicable): CC: Dr. Basilio Dill DO; Dr. Brian Cardona MD~ Signed [facility] Work Phone: Hospital Discharge instructions Additional [...] worsening symptoms. Continue oxycodone as needed for pain.[facility] Work Phone: Progress note [facility] [address] [place] [address] Progress Note - Wound Care 12/28/24 0828 MR#: [id number] Acct: [id number] Name: JORGE COVINGTON Rep #:[id number] : 1955 69 From: Luca Nayak [...] Charges/Coding Visit Charges Office Visits / Consults: 27461 OV L2 Est 10min Physical Exam Narrative [...] Cosigner Signature (if applicable): CC: ~ [facility]igned [facility] Luca Nayak [facility] Note Date/Time December 28, 2024 8: 31am [facility] [address] [place] [address] Progress Note - Wound Care 12/28/24827 MR#: [id number] Acct: [id number] Name: JORGE COVINGTON Rep #:[id number] : 1955 69 From: Luca Nayak [...] Charges/Coding Visit Charges Office Visits / Consults: 06750 OV L2 Est 10min Physical Exam Narrative [...] Cosigner Signature (if applicable): CC: ~ Signed [facility] Work Phone: Progress note [facility] Medical Records Department [address] [place] [address] Progress Note - Hospitalist 01/18/25808 MR#: [id number] Acct: [id number] Name: JORGE COVINGTON Rep #:[id number] : 1955 69 From: Basilio Dill DO PCP: Dr. Brian Cardona MD Status:AD IN Location: [place] [address] Reason for Visit Chief Complaint: confusion. Subjective [...] Neut% (Auto) 63.4, Lymph % (Auto) 21.3, Defiance % (Auto) 9.5, Eos % (Auto) 4.1, [...] Clarity Cloudy, Urine pH 6.0, Ur Specific [place] 1.020, Urine Protein 30 H, Urine Glucose [...] % (Auto) 67.2, Lymph % (Auto) 19.9, Defiance % (Auto) 7.8, Eos % (Auto) 3.4, [...] bases suggestive of bibasilar atelectasis. Reading Location: [place] [address] Physical Exam Const alert and no apparent [...] with enoxaparin Charges/Coding Visit Charges Inpatient E&M: 01122 Subs Hosp L2 01/18/25 1445 Cosigner Signature (if applicable): CC: ~ [facility]igned [facility] Medical Records [facility] [address] [place] [address] Progress Note - Hospitalist 01/19/25 0835 MR#: [id number] Acct: [id number] Name: JORGE COVINGTON Rep #:[id number] : 1955 69 From: Basilio Dill DO PCP: Dr. Brian Cardona MD Status:AD M IN Location: [address] 1 Reason for Visit Chief Complaint: [...] % (Auto) 64.0, Lymph % (Auto) 21.6, Defiance % (Auto) 10.1 H, Eos % (Auto) 2.6, Baso % (Auto) 0.7,Absolute Neuts (auto) 5.6, Absolute Lymphs (auto) 1.89, Nucleated RBC % 0, Sodium 136, Potassium 4.2, Chloride 99, Carbon Dioxide 25.1, Anion Gap 12, BUN 12, Creatinine 0.58 L, Estim Creat Clear Diyh201.25, Est GFR (MDRD) Non-Af 106, BUN/Creatinine Ratio 20.0, Glucose 174 H, Calcium 9.3 Micro: Microbiology 01/17/25 10:51 Urine Catheter - Catheter Urine Culture - Preliminary Gram negative edward GNR lactose otologist Physical Exam Const alert and no apparent [...] with enoxaparin Charges/Coding Visit Charges Inpatient E&M: 71107 Subs Hosp L2 01/19/25 1326 Cosigner Signature (if applicable): CC: ~ [facility]igned [facility] Records [facility] [address] [place] [address] Progress Note - Hospitalist 01/20/25 0821 MR#: [id number] Acct: [id number] Name: JORGE COVINGTON Rep #:[id number] : 1955 69 From: Basilio Dill DO PCP: Dr. Brian Cardona MD Status:AD M IN Location: [place] [address] Reason for Visit Chief Complaint: confusion. Subjective [...] - Preliminary Gram negative edward GNR lactose otologist Physical Exam Const alert and no apparent [...] VTE prophylaxis with enoxaparin DC home with [facility] 01/20/25 1117 Cosigner Signature (if applicable): CC: ~ [facility]igned [facility] Basilio Dill [facility] Note Date/Time January 18, 2025 3 :48pm [facility] Medical Records Department [address] [place] [address] Progress Note - Hospitalist 01/18/25 0809 MR#: [id number] Acct: [id number] Name: JORGE COVINGTON Rep #:[id number] : 1955 69 From: Basilio Dill DO PCP: Dr. Brian Cardona MD Status:AD M IN Location: [place] [address] Reason for Visit Chief Complaint: confusion. Subjective [...] % (Auto) 63.4, Lymph % (Auto) 21.3, Defiance % (Auto) 9.5, Eos % (Auto) 4.1, [...] Clarity Cloudy, Urine pH 6.0, Ur Specific [place] 1.020, Urine Protein 30 H, Urine Glucose [...] % (Auto) 67.2, Lymph % (Auto) 19.9, Def[place] % (Auto) 7.8, Eos % (Auto) 3.4, [...] bases suggestive of bibasilar atelectasis. Reading Location: [place] [address] Physical Exam Const alert and no apparent [...] with enoxaparin Charges/Coding Visit Charges Inpatient E&M: 52305 Subs Hosp L2 01/18/25 1448 <Electronically signed by Basilio Dill DO> Cosigner Signature (if applicable): CC: ~ Signed [facility] Work Phone: Progress note Author Basilio Dill [facility] Note Date/Time January 19, 2025 2 :26pm [facility] Medical Records Department [address] [place] [address] Progress Note - Hospitalist 01/19/25 0835 MR#: [id number] Acct: [id number] Name: JORGE COVINGTON Rep #:[id number] : 1955 69 From: Basilio Dill DO PCP: Dr. Brian Cardona MD Status:AD M IN Location: [place] [address] Reason for Visit Chief Complaint: confusion. Subjective [...] % (Auto) 64.0, Lymph % (Auto) 21.6, [place] % (Auto) 10.1 H, Eos % (Auto) [...] - Preliminary Gram negative edward GNR lactose otologist Physical Exam Const alert and no apparent [...] with enoxaparin Charges/Coding Visit Charges Inpatient E&M: 04993 Subs Hosp L2 01/19/25 1326 <Electronically signed by Basilio Dill DO> Cosigner Signature (if applicable): CC: ~ Signed [facility] Work Phone: Progress note Author Basilio Dill [facility] Note Date/Time January 20, 2025 1 2:17pm [facility] Medical Records Department [address] [place] [address] Progress Note - Hospitalist 01/20/25820 MR#: [id number] Acct: [id number] Name: JORGE COVINGTON Rep #:[id number] : 1955 69 From: Basilio Dill DO PCP: Dr. Brian Cardona MD Status:AD M IN Location: [place] [address] Reason for Visit Chief Complaint: confusion. Subjective [...] - Preliminary Gram negative edward GNR lactose otologist Physical Exam Const alert and no apparent [...] VTE prophylaxis with enoxaparin DC home with [facility] 01/20/25 1117 <Electronically signed by Basilio Dill DO> Cosigner Signature (if applicable): CC: ~ Signed [facility] Work Phone: Reason for referral (narrative)No reason for referral information availableWPremier Health [facility] Work Phone: Summary Purpose Family History No Family History Records Found Relationship Condition Age at Onset Recorded Date/T marguerite mother Cerebrovascular accident (CVA) Unknown Hypertension Unknown father Hypertension Unknown Malignant neoplasm of prostate Unknown Advance Directives No Advanced Directives Records Found Advance Directive Response Recorded Date/ Time Living Will Yes February 08, 022 11:04am Power of Rock Worker Yes February 08, 2022 11:04am Name of Medical Power of Rock Worker Kassandra, wi fe, POA February 08, 2022 11:04am Advance Directive Response Recorded Date/ Time Name of Medical Power of Rock Worker Kassandra, wi fe, POA February 08, 2022 11:04am Living Will Yes February 08, 11:04am Power of Rock Worker Yes February 08, 2022 11:04am Advance Directive Response Recorded Date/ Time Name of Medical Power of Rock Worker Kassandra, wi fe, POA February 08, 2022 11:04am Name of Medical Power of Rock Worker . April 28, 2022 5:34pm Living Will Yes April 28 5:34pm Power of Rock Worker Yes April 28, 2022 5:34pm Advance Directive Response Recorded Date/ Time Name of Medical Power of Rock Worker Kassandra, wi fe, POA February 08, 2022 11:04am Name of Medical Power of Rock Worker . April 28, 2022 5:34pm Living Will No May 02 12:05pm Power of Rock Worker No May 02, 2022 12:05pm Advance Directive Response Recorded Date/ Time Name of Medical Power of Rock Worker . April 28, 2022 6:34pm Living Will No June 16, 2022 9:22am Power of Rock Worker No June 16 9:22am Advance Directive Response Recorded Date/ Time Living Will No June 16, 2022 9:22am Power of Rock Worker No June 16 9:22am Advance Directive Response Recorded Date/ Time Living Will Yes October 13, 2022 10:42am Power of Rock Worker Yes October 13 10:42am Advance Directive Response Recorded Date/ Time Name of Medical Power of Rock Worker November 21, 2022 4:09pm Living Will Yes November 21 4:09pm Power of Rock Worker Yes November 21, 023 4:09pm Advance Directive Response Recorded Date/ Time Name of Medical Power of Rock Worker November 21, 2022 3:09pm Living Will Yes November 21 3:09pm Power of Rock Worker Yes November 21, 2 023 3:09pm Advance Directive Response Recorded Date/ Time Living Will Yes November 21 3:09pm Power of Rock Worker Yes November 21, 2 023 3:09pm Advance Directive Response Recorded Date/ Time Living Will Yes November 21 4:09pm Power of Rock Worker Yes November 21, 2 023 4:09pm Date Activated Date Inactivated Comments 12/11/2023 12:03 PM 12/11/2023 5:19 PM Date Activated Date Inactivated Comments 12/11/2023 12:03 PM 12/11/2023 5:19 PM Advance Directive Response Recorded Date/ Time Living Will Yes August 26, 2023 3 :30pm Power of Rock Worker Yes August 26, 2023 3:30pm Living Will Yes January 24 3:18pm Power of Rock Worker Yes January 25, 2024 3:18pm Living Will Yes February 27 1:17am Power of Rock Worker Yes February 28, 2024 1:17am Living Will Yes March 30 1:12am Power of Rock Worker Yes March 30, 2 025 1:12am Living Will No June 09, 2024 9:05am Power of Rock Worker No June 09 9:05am Living Will Yes April 30 1:37am Power of Rock Worker Yes April 30, 2024 1:37am Living Will Yes May 28, 2024 2:49am Power of Rock Worker Yes May 28 2:49am Advance Directive Response Recorded Date/ Time Living Will Yes August 26, 2023 3 :30pm Power of Rock Worker Yes August 26, 2023 3:30pm Living Will Yes January 24 3:18pm Power of Rock Worker Yes January 25, 2024 3:18pm Living Will Yes February 27 1:17am Power of Rock Worker Yes February 28, 2024 1:17am Living Will Yes March 30 1:12am Power of Rock Worker Yes March 30, 2 025 1:12am Living Will Yes June 09, 2024 2:13pm Power of Rock Worker Yes June 09 2:13pm Name of Medical Power of Rock Worker Dasia Covington , June 09, 2024 2:13pm Living Will Yes April 30 1:37am Power of Rock Worker Yes April 30, 2024 1:37am Living Will Yes May 28, 2024 2:49am Power of Rock Worker Yes May 28 2:49am Advance Directive Response Recorded Date/ Time Living Will Yes August 26, 2023 3 :30pm Do you have a Healthcare Pow er of Rock Worker? Yes August 26, 2023 3:30pm Living Will Yes February 27 1:17am Do you have a Healthcare Pow er of Rock Worker? Yes February 28, 2024 1:17am Living Will Yes March 30 1:12am Do you have a Healthcare Pow er of Rock Worker? Yes March 30, 2024 1:12am Living Will Yes June 09, 2024 2:13pm Do you have a Healthcare Pow er of Rock Worker? Yes June 09, 2024 2:13pm Name of Medical Power of Rock Worker Dasia Covington , June 09, 2024 2:13pm Living Will Yes April 30 1:37am Do you have a Healthcare Pow er of Rock Worker? Yes April 30, 2024 1:37am Living Will Yes May 28, 2024 2:49am Do you have a Healthcare Pow er of Rock Worker? Yes May 28, 2024 2:49am Advance Directive Response Recorded Date/ Time Living Will Yes March 30 1:12am Do you have a Healthcare Pow er of Rock Worker? Yes March 30, 2024 1:12am Living Will Yes June 09, 2024 2:13pm Do you have a Healthcare Pow er of Rock Worker? Yes June 09, 2024 2:13pm Name of Medical Power of Rock Worker Dasia Covington , June 09, 2024 2:13pm Do you have a Healthcare Pow er of Rock Worker? Yes July 29, 2024 11:08pm Name of Medical Power of Rock Worker Abraham Covington July 29, 2024 11:08pm Living Will Yes April 30 1:37am Do you have a Healthcare Pow er of Rock Worker? Yes April 30, 2024 1:37am Living Will Yes May 28, 2024 2:49am Do you have a Healthcare Pow er of Rock Worker? Yes May 28, 2024 2:49am Living Will Yes June 28, 2024 12:51am Do you have a Healthcare Pow er of Rock Worker? Yes June 28, 2024 12:51am Do you have a Healthcare Pow er of Rock Worker? No August 02, 2024 10:57am Advance Directive Response Recorded Date/ Time Living Will Yes June 09, 2024 2:13pm Do you have a Healthcare Pow er of Rock Worker? Yes June 09, 2024 2:13pm Name of Medical Power of Rock Worker Dasia Covington , June 09, 2024 2:13pm Do you have a Healthcare Pow er of Rock Worker? Yes July 29, 2024 11:08pm Name of Medical Power of Rock Worker Abraham Covington July 29, 2024 11:08pm Do you have a Healthcare Pow er of Rock Worker? No August 07, 2024 5:53pm Living Will Yes April 30 1:37am Do you have a Healthcare Pow er of Rock Worker? Yes April 30, 2024 1:37am Living Will Yes May 28, 2024 2:49am Do you have a Healthcare Pow er of Rock Worker? Yes May 28, 2024 2:49am Living Will Yes June 28, 2024 12:51am Do you have a Healthcare Pow er of Rock Worker? Yes June 28, 2024 12:51am Do you have a Healthcare Pow er of Rock Worker? No August 02, 2024 10:57am Advance Directive Response Recorded Date/ Time Living Will Yes June 09, 2024 2:13pm Do you have a Healthcare Pow er of Rock Worker? Yes June 09, 2024 2:13pm Name of Medical Power of Rock Worker Dasia Covington , June 09, 2024 2:13pm Living Will Yes July 28, 2024 12 :38am Do you have a Healthcare Pow er of Rock Worker? Yes July 28, 2024 12:38am Do you have a Healthcare Pow er of Rock Worker? Yes July 29, 2024 11:08pm Name of Medical Power of Rock Worker Abraham Covington July 29, 2024 11:08pm Do you have a Healthcare Pow er of Rock Worker? No August 07, 2024 5:53pm Living Will Yes May 28, 2024 2:49am Do you have a Healthcare Pow er of Rock Worker? Yes May 28, 2024 2:49am Living Will Yes June 28, 2024 12:51am Do you have a Healthcare Pow er of Rock Worker? Yes June 28, 2024 12:51am Do you have a Healthcare Pow er of Rock Worker? No August 02, 2024 10:57am Advance Directive Response Recorded Date/ Time Living Will Yes July 28, 2024 12 :38am Do you have a Healthcare Power of Rock Worker? Yes July 28, 2024 12:38am Do you have a Healthcare Power of Rock Worker? Yes July 29, 2024 11:08pm Name of Medical Power of Rock Worker Abraham Covington July 29, 2024 11:08pm Do you have a Healthcare Power of Rock Worker? No August 07, 2024 5:53pm Living Will Yes May 28, 2024 2:49am Do you have a Healthcare Power of Rock Worker? Yes May 28, 2024 2:49am Living Will Yes June 28, 2024 12:51am Do you have a Healthcare Power of Rock Worker? Yes June 28, 2024 12:51am Do you have a Healthcare Power of Rock Worker? No August 02, 2024 10:57am Advance Directive Response Recorded Date/ Time Living Will Yes July 28, 2024 12 :38am Do you have a Healthcare Power of Rock Worker? Yes July 28, 2024 12:38am Do you have a Healthcare Power of Rock Worker? Yes July 29, 2024 11:08pm Name of Medical Power of Rock Worker Abraham Covington July 29, 2024 11:08pm Do you have a Healthcare Power of Rock Worker? No August 07, 2024 5:53pm Living Will Yes June 28, 2024 12:51am Do you have a Healthcare Power of Rock Worker? Yes June 28, 2024 12:51am Do you have a Healthcare Power of Rock Worker? No August 02, 2024 10:57am Advance Directive Response Recorded Date/ Time Living Will Yes July 28, 2024 12 :38am Do you have a Healthcare Power of Rock Worker? Yes July 28, 2024 12:38am Do you have a Healthcare Power of Rock Worker? Yes July 29, 2024 11:08pm Name of Medical Power of Rock Worker Abraham Covington July 29, 2024 11:08pm Do you have a Healthcare Power of Rock Worker? No August 07, 2024 5:53pm Do you have a Healthcare Power of Rock Worker? No August 02, 2024 10:57am Advance Directive Response Recorded Date/ Time Do you have a Healthcare Power of Rock Worker? No January 17, 2025 12:21pm Hospital Course Note HNO ID: [id number] Author: Eliseo Romo Service: ? Author Type: [...] (more content not included)... Note HNO ID: [id number] Author: Aparna Armas Service: Anesthesiology Author Type: Nurse Ehr Trainer Type: Procedures Filed: 01/22/2019 11:43 PM Note Text: INTUBATION PROCEDURE NOTE PROCEDURE DATE: January 22, 2019 PROCEDURE START TIME: 2329 PROCEDURE: OROTRACHEAL INTUBATION PRIMARY PROCEDURALIST: Dank Armas APRN.CRNA GANG SAWYER(S): None INFORMED CONSENT: Due to emergent situation [...] not included)... Procedure Findings Note HNO ID: [id number] Author: Aparna Armas Service: Anesthesiology Author Type: Nurse Ehr Trainer Type: Procedures Filed: 01/22/2019 11:43 PM Note Text: INTUBATION PROCEDURE NOTE PROCEDURE DATE: January 22, 2019 PROCEDURE START TIME: 2329 PROCEDURE: OROTRACHEAL INTUBATION PRIMARY PROCEDURALIST: Dank Armas APRN.CRNA GANG SAWYER(S): None INFORMED CONSENT: Due to emergent situation [...] 2024 2:28 pm COMPLICATED URINARY TRACT INFECTION [facility] 2024 12:06pm Reason for Visit Admit Date Right ischial pressure sore January 2:53pm Right ischial pressure sore, stage 4 Jan 2:53pm Right ischial pressure sore February 3:09pm Right ischial pressure sore, [facility] 3:09pm Right ischial pressure sore April [...] 3:30pm Right ischial pressure sore, stage 4 [facility] 2024 3:30pm Chief Complaint Admit Date wound [...] 2024 12: 06pm Complicated urinary tract infection [facility] 2024 12:06pm Leukocytosis June 09, 2024 [...] section and content) DATE CREATED AUTHOR 06/25/2018 [facility] DATE CREATED AUTHOR AUTHOR'S ORGANIZ ATION 06/25/2018 [facility] DATE CREATED AUTHOR AUTHOR'S ORGANIZ ATION 02/03/2019 [facility] DATE CREATED AUTHOR AUTHOR'S ORGANIZ ATION 05/06/2021 [facility] DATE CREATED AUTHOR AUTHOR'S ORGANIZ ATION 01/23/2025 [facility] DATE CREATED AUTHOR AUTHOR'S ORGANIZ ATION 02/09/2025 [facility] Goals (unrecognized section and content) Goals may [...] Active Start: May 02, 2024 Kemi Rubio TWISTER TENDER PAPER, TWISTER TENDER PAPER-C Other Provider Active Start: May 02, 2024 [...] 2024 End: May 27, 2024 Kemi Rubio TWISTER TENDER PAPER, TWISTER TENDER PAPER-C Attending Provider Active Start: May 02, 2024 [...] Star t: February 24, 2024 Kemi Rubio TWISTER TENDER PAPER, TWISTER TENDER PAPER-C Attending Provider Active Start: February 24, 2024 Kemi Rubio TWISTER TENDER PAPER, TWISTER TENDER PAPER-C Referring Provider Active Start: February 24, 2024 Team Status: Inactive Member Role Status Dates CARLOS Jauregui Referring Provider Active Star t: March 21, 2024 End: March 29, 2024 Dr. Brian Cardona MD Primary Care Provider Active Start: March 21, 2024 End: March 29, 2024 Kemi Rubio TWISTER TENDER PAPER, TWISTER TENDER PAPER-C Attending Provider Active Start: March 21, 2024 End: March 29, 2024 Team Status: Active Member Role Status Dates Dr. Brian Cardona MD Primary Care Provider Active Start: March 21, 2024 Kemi Rubio TWISTER TENDER PAPER, TWISTER TENDER PAPER-C Other Provider Active Start: March 21, 2024 [...] 2024 End: March 24, 2024 Kemi Rubio TWISTER TENDER PAPER, TWISTER TENDER PAPER-C Attending Provider Active Start: March 24, 2024 End: March 24, 2024 Team Status: Inactive Member Role Status Dates CARLOS Jauregui Referring Provider Active Star t: April 04, 2024 End: April 29, 2024 Dr. Brian Cardona MD Primary Care Provider Active Start: April 04, 2024 End: April 29, 2024 Kemi Rubio TWISTER TENDER PAPER, TWISTER TENDER PAPER-C Attending Provider Active Start: April 04, 2024 End: April 29, 2024 Team Status: Active Member Role Status Dates Dr. Brian Cardona MD Primary Care Provider Active Start: April 04, 2024 Kemi Rubio TWISTER TENDER PAPER, TWISTER TENDER PAPER-C Other Provider Active Start: April 04, 2024 [...] Active Member Role Status Dates Kemi Rubio TWISTER TENDER PAPER, TWISTER TENDER PAPER-C Attending Pro vider, Referring Provider, Other Provider [...] Active Member Role Status Dates Kemi Rubio TWISTER TENDER PAPER, TWISTER TENDER PAPER-C Attending Pro vider, Referring Provider, Other Provider [...] CARLOS Jauregui Referring Provider Active Kemi Rubio TWISTER TENDER PAPER, TWISTER TENDER PAPER-C Attending Provider Active No Primary Care Physician Primary Care Provider Active Team Status: Inactive Member Role Status Dates CARLOS Jauregui Referring Provider Active Kemi Rubio TWISTER TENDER PAPER, TWISTER TENDER PAPER-C Attending Provider Active Dr. Brian Cardona MD Primary Care Provider Active Team Status: Inactive Member Role Status Dates No Primary Care Physician Primary Care Provider, Refer ring Provider Active Dr. Kari Romero MD Attending Provider Active Team Status: Inactive Member Role Status Dates CARLOS Orozco Referring Provider Active Kemi Workmanell TWISTER TENDER PAPER, TWISTER TENDER PAPER-C Attending Provider Active No Primary Care Physician Primary Care Provider Active Team Status: Active Member Role Status Dates No Primary Care Physician Primary Care Provider Active Team Status: Active Member Role Status Dates Dr. Brian Cardona MD Primary Care Provider Active Cristy Biedenharn , PA Referring Provider Active Kemi Rubio TWISTER TENDER PAPER, TWISTER TENDER PAPER-C Attending Provider, Other P rovider Active Team Status: Active Member Role Status Dates Dr. Kari Romero MD Attending Provider, Other Provi inge Active No Primary Care Physician Primary Care Provider, Refer ring Provider Active Team Status: Active Member Role Status Dates Cristy Verma PA Referring Provider Active Kemi Rubio TWISTER TENDER PAPER, TWISTER TENDER PAPER-C Attending Provider, Other P rovider Active No Primary Care Physician Primary Care Provider Active Team Status: Inactive Member Role Status Dates Dr. Brian Cardona MD Primary Care Provider Active Cristy Bisivakumar , PA Referring Provider Active Kemi Rubio TWISTER TENDER PAPER, TWISTER TENDER PAPER-C Attending Provider Active Team Status: Inactive Member [...] Romero MD Other Provider Active Kemi Rubio TWISTER TENDER PAPER, TWISTER TENDER PAPER-C Attending Provider Active Team Status: Inactive Member Role Status Dates Dr. Biran Cardona MD Primary Care Provider Active Dr. [...] PA, PA Referring Provider Active Kemi Rubio TWISTER TENDER PAPER, TWISTER TENDER PAPER-C Attending Provider, Other P rovider Active Team Status: Inactive Member Role Status Dates Dr. Brian Cardona MD Primary Care Provider Active Cristy Biedenharn PA, PA Referring Provider Active Kemi Rubio TWISTER TENDER PAPER, TWISTER TENDER PAPER-C Attending Provider Active Team Status: Active Member Role Status Dates Dr. Brian Cardona MD Primary Care Provider Active Cristy Biedenharn PA, PA Referring Provider Active Kemi Rubio TWISTER TENDER PAPER, TWISTER TENDER PAPER-C Attending Provider Active Team Status: Active Member Role Status Dates Cristy Biedenharn PA, PA Referring Provider Active Kemi Rubio TWISTER TENDER PAPER, TWISTER TENDER PAPER-C Attending Provider, Other P rovider Active No Primary Care Physician Primary Care Provider Active Team Status: Inactive Member Role Status Dates Cristy Biedenharn PA, PA Referring Provider Active Kemi E Ramiro TWISTER TENDER PAPER, TWISTER TENDER PAPER-C Attending Provider Active No Primary Care Physician Primary Care Provider Active Team Status: Active Member Role Status Dates CARLOS Orozco Referring Provider Active Kemi Rubio TWISTER TENDER PAPER, TWISTER TENDER PAPER-C Attending Provider Active No Primary Care Physician Primary Care Provider Active Team Status: Active Member Role Status Dates CARLOS Jauregui Referring Provider Active Kemi Rubio TWISTER TENDER PAPER, TWISTER TENDER PAPER-C Attending Provider, Other P rovider Active Dr. Brian Cardona MD Primary Care Provider Active Team Status: Inactive Member Role Status Dates Dr. Brian Cardona MD Primary Care Pr ovider, Attending Provider, Referring Provider Active Team Status: Active Member Role Status Dates CARLOS Jauregui Referring Provider Active Kemi Rubio TWISTER TENDER PAPER, TWISTER TENDER PAPER-C Attending Provider Active Dr. Brian Cardona MD Primary Care Provider Active Cook Helper Preserves Relationship Specialty Start Date End Date Brian Cardona MD [address] [place] [address] PCP - General Family Medicine 03/06/23 Team Status: Active Member Role Status Dates Kemi Rubio TWISTER TENDER PAPER, TWISTER TENDER PAPER-C Other Provider Active Dr. Brian Cardona MD Primary Care Provider Active Dr. Popeye Messina MD Attending Provider, Referring P rovider Active Team Status: Inactive Member Role Status Dates Dr. Brian Cardona MD Primary Care Provider, Referr ing Provider Active Rod GONZALEZ, PA Attending Provider Active Cook Helper Preserves Relationship Specialty Start Date End Date Brian Cardona MD [address] [place] [address] PCP - General Family Medicine 03/06/23 Zackery Carmona MD [address] [place] [address] [address] [place], [place] [id number] Surgeon Urology 08/19/23 Cook Helper Preserves Relationship Specialty Start Date End Date Brian Cardona MD [address] [place] [address] PCP - General Family Medicine 03/06/23 Zackery Carmona MD [address] [facility] [address] [place] [address] Surgeon Urology 08/19/23 Cook Helper Preserves Relationship Specialty Start Date End Date Brian Cardona MD [address] [place] [phone] PCP - General Family Medicine 03/06/23 Zackery Carmona MD [address] [facility] [address] [place] [address] Surgeon Urology 08/19/23 Cook Helper Preserves Relationship Specialty Start Date End Date Brian Cardona MD [address] [place] [phone] PCP - General Family Medicine 03/06/23 Zackery Carmona MD [address] [facility] [address] [place] [address] Surgeon Urology 08/19/23 Rikki Casas MD [address] [facility] [address] [place] [phone] Surgeon Urology 10/23/23 Cook Helper Preserves Relationship Specialty Start Date End Date Brian Cardona MD [address] [place] [phone] PCP - General Family Medicine 03/06/23 Zackery Carmona MD [address] [facility] [address] [place] [address] Surgeon Urology 08/19/23 Rikki Casas MD [address] [place] [address] Surgeon Urology 10/23/23 Cook Helper Preserves Relationship Specialty Start Date End Date Brian Cardona MD [address] [place] [phone] PCP - General Family Medicine 03/06/23 Zackery Carmona MD [address] [place] [address] Surgeon Urology 08/19/23 Rikki Casas MD [address] [place] [address] Surgeon Urology 10/23/23 Cook Helper Preserves Relationship Specialty Start Date End Date Brian Cardona MD [address] [place] [phone] PCP - General Family Medicine 03/06/23 Zackery Carmona MD [address] [facility] [address] [place] [address] Surgeon Urology 08/19/23 Rikki Casas MD [address] [place] [address] Surgeon Urology 10/23/23 Cook Helper Preserves Relationship Specialty Start Date End Date Brian Cardona MD [address] [place] [phone] PCP - General Family Medicine 03/06/23 Zackery Carmona MD [address] [place] [address] Surgeon Urology 08/19/23 Rikki Casas MD [address] [facility] [address] [place] [address] Surgeon Urology 10/23/23 Cook Helper Preserves Relationship Specialty Start Date End Date Brian Cardona MD [address] [place] [phone] PCP - General Family Medicine 03/06/23 Zackery Carmona MD [address] [facility] [address] [place] [address] Surgeon Urology 08/19/23 Rikki Casas MD [address] [facility] [address] [place] [phone] Surgeon Urology 10/23/23 Cook Helper Preserves Relationship Specialty Start Date End Date Brian Cardona MD [address] [place] [phone] PCP - General Family Medicine 03/06/23 Zackery Carmona MD [address] [facility] [address] [place] [address] Surgeon Urology 08/19/23 Rikki Casas MD [address] [facility] [address] [place] [phone] Surgeon Urology 10/23/23 Team Status: Active Member [...] Provider Active Start: August 29, 2024 Dr. Lcua Nayak MD Other Provider Active Star t: [...] Star t: August 29, 2024 Dr. Brian Cardoan MD Primary Care Provider Active Start: August [...] Active S tart: June 22, 2024 Dr. Juilana Shaw MD Referring Provider Active Start: June [...] Active Start: July 31, 2024 Dr. Andre Ferriera DO Emergency Provider Active Start: July 31, [...] Active Start: January 19, 2025 Susan Melton TWISTER TENDER PAPER-C Nurse Practitioner Active Start: January 19, 2025 [...] Active Start: January 19, 2025 Susan Melton TWISTER TENDER PAPER-C Nurse Practitioner Active Start: January 19, 2025 [...] Contact Diagnoses Urinary incontinence Urinary incontinence Procedures UT CYSTOURETHROSCOPY UT CYSTOSTOMY CYSTOTOMY W/DRAINAGE CYSTOSCOPY possible trocar suprapubic cystostomy Rikki Casas MD [address] [place] [address] [facility] [address] [facility] [address] [place] [address] Referral ID Status Reason Start Date Expiration Date Visits Re quested Visits Authorized [id number] 1 1 Reason Onset Date Comments Urinary [...] BE BASED ON THE PRIMARY CLINICAL RECORDS. [employer] provides no warranty or guarantee of the accuracy or completeness of information in this document.
[2025-03-16] MEDS: Vancomycin HCl 2,000 MG in 0.9% Normal Saline (500mL Bag) 500 ML 250 MG IV (22:52)
[2025-03-16 23:48] LABS: Troponin T High Sens 2 HR 22 ng/L (<=22)
[2025-03-17] VITALS (46 sets, daily range): BP systolic 113–172; BP diastolic 57–136; PULSE 16–95; RESP 12–21; TEMP 35.8–37.2; O2SAT 90–100; BMI 36.7; BMI 36.6
--- NOTE | 2025-03-17 00:40 | PCM.RX.CS ---
Consult Antibiotic Management Pharmacy has been consulted to manage selected antibiotic: Vancomycin Type of Intervention Type of Consult: New start Labs Labs: Sodium 136 mmol/L (133-145) 03/16/25 20: Potassium 4.6 mmol/L (3.3-5.1) 03/16/25 20:26 Chloride 99 mmol/L (98-108) 03/16/25 20: Carbon Dioxide 25.8 mmol/L (21.0-32.0) 03/16/25 20: Anion Gap 11 (5-15) 03/16/25 20:26 BUN 6 mg/dL (4-19) 03/16/25 20: Creatinine 0.57 mg/dL (0.70-1.20) L 03/16/25 20:26 Est GFR (MDRD) Non-Af 107 (>60) 03/16/25 20:26 BUN/Creatinine Ratio 11.2 RATIO (10-20) 03/16/25 20: Glucose 151 mg/dL (70-99) H 03/16/25 20:26 Microbiology Microbiology: Microbiology 03/16/25 20:25 Mucosa - Nasopharyngeal SARS-CoV-2, Influenza & RSV (PCR) - Final Dosing Weight Weight used for dosin kg Estimated Creatinine Clearance Estimated Creatinine Clearance: 101 Goal Trough Goal Trough: 15-20 mcg/mL Pharmacy Plan for Drug Dosing Pharmacy Plan for Drug Dosing: Pharmacy Service will continue to monitor and adjust dosing as required. Follow-Up Labs Follow-Up Labs: Trough: Vancomycin Date/Time Labs Ordered Labs to be done on [date and time ordered]: 03/17/25 @9641
[2025-03-17] MEDS: Propofol 10MG/Ml 1,000 MG/100 ML Bottle 22.5 MG CONT INF (01:26)
[2025-03-17] MEDS: 0.9% Saline Lock 10 ML Syringe IV ×2 (01:26→06:21)
[2025-03-17] MEDS: fentaNYL drip 100 ML 2.5 MCG CONT INF (01:30)
[2025-03-17] MEDS: Chlorhexidine 15 ML PO ×3 (02:04→21:21)
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
--- NOTE | 2025-03-17 03:10 | CT_ITS ---
PROCEDURE: CHEST WITHOUT CONTRAST 03/17/2025 REASON FOR EXAM: PNA TECHNIQUE: Chest CT without contrast. Coronal and Sagittal reconstruction series were provided. One or more dose reduction techniques were used (e.g., Automated exposure control, adjustment of the mA and/or kV according to patient size, use of iterative reconstruction technique RADIATION DOSE SUMMARY: CTDlvol: 19.87 mGy DLP: 675 mGycm COMPARISON: Chest radiograph on 03/16/2025. CT angiography on 02/22/2025. FINDINGS: Endotracheal tube is in good position. Enteric feeding tube is in good position with its tip at the level of the gastric body. Resolution of pleural effusions. Increased bilateral basilar airspace disease of the lower lobes, multifocal subsegmental atelectasis and/or pneumonia. Unchanged mildly prominent, benign-looking mediastinal lymph nodes. Unchanged osteopenia with moderate diffuse spondylosis. Unchanged upper thoracic laminectomies. Unchanged diffuse spondylosis. Unchanged enlarged main pulmonary artery suggestive of pulmonary arterial hypertension. Unchanged moderate coronary artery calcifications. Normal unenhanced main pulmonary artery and right and left pulmonary arteries. Normal bilateral peripheral pulmonary arteries. Normal thoracic aorta and visualized great vessels. There is no demonstrated aortic aneurysm. Normal heart and pericardium. Normal visualized trachea and bronchi. Normal pleura. CT/Chest without Contrast IMPRESSION: Coronary artery calcification (CAC) is present. Endotracheal tube is in good position. Enteric feeding tube is in good position with its tip at the level of the gastr ic body. Resolution of pleural effusions. Increased bilateral basilar airspace disease of the lower lobes, multifocal sub segmental atelectasis and/or pneumonia. Unchanged mildly prominent, benign-looking mediastinal lymph nodes. Unchanged osteopenia with moderate diffuse spondylosis. Unchanged upper thoracic laminectomies. Unchanged diffuse spondylosis. Unchanged enlarged main pulmonary artery suggestive of pulmonary arterial hyper tension. Unchanged moderate coronary artery calcifications. Reading [facility]
[2025-03-17 04:15] LABS: Hematocrit 39.3 % (40-54); Hemoglobin 11.7 g/dL (13.0-16.5); Immature Granulocytes Count 0.170 X10^3/uL (0.0-0.0); Mean Corp Hgb Conc 29.8 g/dL (32-36); Mean Corpuscular Volume 88.7 fL (80-94); Mean Platelet Vol. 9.5 fl (6.2-12.0); NRBC Flagged by Analyzer 0 % (0-5); Platelet Count 285 K/mm3 (150-450); RBC Distribution Width CV 16.3 % (11.6-14.6); RBC Distribution Width SD 53.6 fl (35.1-43.9); Red Blood Count 4.43 M/mm3 (4.6-6.2); White Blood Count 8.4 K/mm3 (4.4-11.0)
[2025-03-17 04:42] LABS: Anion Gap 16 (5-15); BUN 10 mg/dL (4-19); BUN/Creat Ratio 10.3 RATIO (10-20); Calcium,Total 9.1 mg/dL (7.6-11.0); Carbon Dioxide 24.2 mmol/L (21.0-32.0); Chloride 97 mmol/L (98-108); Estimated Creatinine Clearance 78.81 ml/min (50-250); Glucose 339 mg/dL (70-99); Potassium 3.9 mmol/L (3.3-5.1)
[2025-03-17] MEDS: CHLORHEXIDINE GLUC 2% CLOTH 1 EACH TOWELETTE TOPICAL (05:13)
[2025-03-17] MEDS: Piperacil/Tazobactam 3.375 GM in 0.9% Normal Saline (50mL MB+) 50 ML IV ×3 (05:20→21:21)
[2025-03-17 05:45] LABS: Allen Test Positive; Base Excess 1 mmol/L (-2 to +2); FI02 50.0; PEEP 5; PO2 68 mmHG (75-100); RR 12; SITE L Radial; SO2 91 % (94-98)
[2025-03-17] MEDS: Vancomycin HCl 1,250 MG in 0.9% Normal Saline (250mL Bag) 250 ML 167 MG IV ×2 (06:21→14:51)
[2025-03-17] MEDS: TITRATION PARAMETER CHANGE 1 EACH IV (06:21)
[2025-03-17] MEDS: Propofol 10MG/Ml 1,000 MG/100 ML Bottle 12.9 MG CONT INF (06:29)
[2025-03-17 06:38] LABS: Troponin T High Sens 4 HR 21 ng/L (<=22)
[2025-03-17] MEDS: 0.9% Normal Saline (250mL Bag) 250 ML 15 ML IV ×2 (06:41)
[2025-03-17] MEDS: APIXABAN 5 MG TABLET GT ×2 (08:42→21:44)
[2025-03-17] MEDS: Pantoprazole Sodium 40 MG in 0.9% Normal Saline (100mL MB+) 100 ML 300 MG IV (09:10)
[2025-03-17] MEDS: 0.9% Normal Saline (1000mL) 1,000 ML 150 ML IV (10:27)
--- NOTE | 2025-03-17 11:31 | WOUNDNOTE ---
wound photo: right ischium
[2025-03-17 12:14] LABS: Anion Gap 15 (5-15); BUN 15 mg/dL (4-19); BUN/Creat Ratio 9.0 RATIO (10-20); Calcium,Total 9.0 mg/dL (7.6-11.0); Carbon Dioxide 23.5 mmol/L (21.0-32.0); Chloride 98 mmol/L (98-108); Estimated Creatinine Clearance 47.95 ml/min (50-250); Glucose 399 mg/dL (70-99); Potassium 4.2 mmol/L (3.3-5.1)
[2025-03-17 13:11] LABS: Reflex Lactate? Y
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
[2025-03-17] MEDS: Propofol 10MG/Ml 1,000 MG/100 ML Bottle 12.4 MG CONT INF ×2 (13:26→18:53)
[2025-03-17] MEDS: Lactated Ringers 1,000 ML 999 ML IV ×2 (13:42→18:10)
--- NOTE | 2025-03-17 13:45 | RAD_ITS ---
PROCEDURE: ABDOMEN SINGLE VIEW (PORTABLE) 03/17/2025 REASON FOR EXAM: OG PLACEMENT TECHNIQUE: Procedure Code: RADABD_P Modality: DX Procedure: ABDOMEN SINGLE VIEW (PORTABLE) COMPARISON: Prior chest radiograph dated March 16, 2025. FINDINGS: The tip of the orogastric tube is in the distal portion of the stomach. Improved. RAD/Abdomen Single View (Portable) IMPRESSION: The tip of the orogastric tube is in the distal portion of the stomach. Improved aeration of the lung bases. Reading Location: [id number]
--- NOTE | 2025-03-17 14:00 | PCM.PROGNOTE ---
Subjective Subjective Patient seen and examined. He remains intubated and sedated though his RASS score was 0. He was able to open his eyes, could not answer questions because he was intubated. Unable to do review of systems. Objective Data Objective Data Vital Signs: Vital Signs Temp Pulse Resp BP Pulse Ox O2 Del Method O2 Flow Rate 98.8 F 71 14 128/65 H 96 Mechanical Ventilator 40 03/17/25 05:00 03/17/25 13:00 03/17/25 13:00 03/17/25 13:00 03/17/25 13:00 03/17/25 13:00 03/16/25 23:30 FiO2 45 03/17/25 13:00 Oxygen Flow Rate (L/min) 40 Oxygen Delivery Method Mechanical Ventilator Weight: 227 lb 11.8 oz Body Mass Index (BMI) 36.6 Intake & Output: Intake and Output for Last 24 Hours 03/15/25 03/16/25 03/17/25 23:59 23:59 23:59 Intake Total 151.89 / 156.01 1216.33 / 1216.33 Output Total 555 / 555 Balance 151.89 / 156.01 661.33 / 661.33 Lab / Micro Data 03/17/25 04:10 03/17/25 11:50 Labs: Laboratory Results - last 24 hr 03/16/25 20:26: WBC 7.1, RBC 4.30 L, Hgb 11.5 L, Hct 39.5 L, MCV 91.9, MCH 26.7 L, MCHC 29.1 L, RDW Std Deviation 55.4 H, RDW Coeff of Josue 16.4 H, Plt Count 273, MPV 9.5, Immature Gran % (Auto) 1.400 H, Neut % (Auto) 67.2, Lymph % (Auto) 20.6, [place] % (Auto) 7.4, Eos % (Auto) 2.7, Baso % (Auto) 0.7, Absolute Neuts (auto) 4.8, Absolute Lymphs (auto) 1.47, Nucleated RBC % 0, Sodium 136, Potassium 4.6, Chloride 99, Carbon Dioxide 25.8, Anion Gap 11, BUN 6, Creatinine 0.57 L, Estim Creat Clear Calc 101.46, Est GFR (MDRD) Non-Af 107, BUN/Creatinine Ratio 11.2, Glucose 151 H, Calcium 8.9, Total Bilirubin 0.28, AST 28, ALT 25, Alkaline Phosphatase 84, Total Creatine Kinase 24, Troponin T High Sens 24 H D, NT pro BNP II 628, Total Protein 6.6, Albumin 3.2 L, Globulin 3.4, Albumin/Globulin Ratio 0.9, Triglycerides 198 03/16/25 21:05: Urine Color Yellow, Urine Clarity Cloudy, Urine pH 6.0, Ur Specific [place] 1.030, Urine Protein 30 H, Urine Glucose (UA) Normal, Urine Ketones 15 H, Urine Occult Blood 150 H, Urine Nitrite Positive H, Urine Bilirubin Negative, Urine Urobilinogen Normal, Ur Leukocyte Esterase 500 H, Urine RBC 50-100 SEEN, Urine WBC >100 SEEN, Ur Squamous Epith Cells 0-5 SEEN, Calcium Oxalate Crystal 1+, Urine Bacteria 3+, Hyaline Casts 0-5 SEEN, Urine Mucus 2+, Urine Yeast 2+ 03/16/25 22:55: Troponin T Hi Sens 2 Hr 22 03/17/25 00:36: POC Glucose 272 H 03/17/25 04:10: WBC 8.4, RBC 4.43 L, Hgb 11.7 L, Hct 39.3 L, MCV 88.7, MCH 26.4 L, MCHC 29.8 L, RDW Std Deviation 53.6 H, RDW Coeff of Josue 16.3 H, Plt Count 285, MPV 9.5, Immature Gran % (Auto) 2.000 H, Neut % (Auto) 87.3 H, Lymph % (Auto) 8.7 L, [place] % (Auto) 1.6, Eos % (Auto) 0.0, Baso % (Auto) 0.4, Absolute Neuts (auto) 7.3, Absolute Lymphs (auto) 0.73 L, Nucleated RBC % 0, Sodium 137, Potassium 3.9, Chloride 97 L, Carbon Dioxide 24.2, Anion Gap 16 H, BUN 10, Creatinine 1.01, Estim Creat Clear Calc 78.81, Est GFR (MDRD) Non-Af 81, BUN/Creatinine Ratio 10.3, Glucose 339 H, Calcium 9.1, Troponin T Hi Sens 4Hr 21 03/17/25 05:08: POC Glucose 324 H 03/17/25 09:05: Lactic Acid 6.6 H* 03/17/25 11:50: Sodium 136, Potassium 4.2, Chloride 98, Carbon Dioxide 23.5, Anion Gap 15, BUN 15, Creatinine 1.66 H, Estim Creat Clear Calc 47.95 L, Est GFR (MDRD) Non-Af 45 L, BUN/Creatinine Ratio 9.0 L, Glucose 399 H, Calcium 9.0 Micro: Microbiology 03/16/25 20:22 Sputum, Tracheal Aspirate Gram Stain - Final 03/16/25 20:22 Sputum, Tracheal Aspirate Respiratory Culture - Preliminary Appears to be normal respiratory cristel. Further studies to follow. 03/17/25 03:50 Mucosa - Nasopharyngeal Respiratory Panel (PCR) - Final Rhinovirus 03/17/25 03:50 Nasal Secretion MRSA (PCR) - Final Meth. resistant Staph. aureus 03/16/25 20:25 Mucosa - Nasopharyngeal SARS-CoV-2, Influenza & RSV (PCR) - Final ABG Data ABG results: ABG 03/16/25 03/16/25 03/17/25 19:58 22:42 05:41 Specimen Type ART ART ART Sample Site L Radial L Radial L Radial pH 7.22 L 7.47 H 7.30 L Bicarbonate Actual 35.2 H 31.7 H 27.4 H Total CO2 38 33 29 Base Excess 8 H 8 H 1 O2 Saturation 94 81 L 91 L O2 % 100.0 40.0 50.0 ABG pCO2 85.1 H* 43.2 56.1 H ABG pO2 88 43 L 68 L Rafal Test Positive Positive Positive Respiration Rate 14 18 12 O2 Delivery Device BiPAP Adult Vent Adult Vent Vent Mode Not entered AC AC Tidal Volume 400.0 400.0 POC PEEP 10 5 5 Crit Call To/Read Back Yes Blood Gas Notified Whom Saavedra Blood Gas Notified Time 20:00:08 Clinical Comments 14/01 14 100% ACVC+ Radiography Diagnostic Testing: Radiology Impression Chest X-Ray 03/16/25 20:00 IMPRESSION: Cardiomegaly with vascular congestion. Bibasilar consolidation and/or atelectasis, possibly with small pleural effusions. Reading Location: [id number] Chest X-Ray 03/16/25 20:50 IMPRESSION: 1. Endotracheal tube tip projects 2.3 cm above the ede. 2. Enteric tube terminates in the expected location of the stomach or proximal duodenum. 3. No significant change in lung aeration with bibasilar atelectasis and probable layering pleural effusions, with coexisting consolidation not excluded. Cardiomegaly. Reading Location: [facility] Chest CT 03/17/25 03:10 IMPRESSION: Coronary artery calcification (CAC) is present. Endotracheal tube is in good position. Enteric feeding tube is in good position with its tip at the level of the gastric body. Resolution of pleural effusions. Increased bilateral basilar airspace disease of the lower lobes, multifocal subsegmental atelectasis and/or pneumonia. Unchanged mildly prominent, benign-looking mediastinal lymph nodes. Unchanged osteopenia with moderate diffuse spondylosis. Unchanged upper thoracic laminectomies. Unchanged diffuse spondylosis. Unchanged enlarged main pulmonary artery suggestive of pulmonary arterial hypertension. Unchanged moderate coronary artery calcifications. Reading Location: [place] [address] Physical Exam Const Constitutional Narrative: intubated, sedated. RASS score is 0 HEENT normocephalic, head/scalp atraumatic, moist oral mucous membranes and oropharynx normal Eyes EOMs intact bilaterally Neck supple and no JVD Lymph Lymphatic: no lymphedema noted Resp Resp Narrative: intubated, sedated. Moderately diminished breath sounds bibasally, no wheezes or crackles. On Cardio regular rate, regular rhythm, S1 normal heart sound, S2 normal heart sound and no murmurs GI normal to inspection, nondistended, normoactive bowel sounds, soft to palpation and non-tender GI Narrative: has colostomy bag Extremity normal capillary refill, no clubbing, cyanosis or edema and no calf tenderness General Extremity: no tenderness to palpation of joints or extremities Skin General Skin Exam: no breakdown Neuro Neuro Narrative: intubated, sedated Motor Exam: general weakness Psych Psych Narrative: intubated, sedated. RASS score is -4. Assessment & Plan Assessment/Plan (1) Decubitus ulcer of right buttock, stage 3: (2) Acute on chronic respiratory failure with hypoxia and hypercapnia: PLAN: Plan #Acute hypoxic and hypercapnic respiratory failure due to pneumonia and COPD exacerbation Remains intubated and sedated. RASS score is 0. Currently on IV Zosyn. Chest x-ray showed bilateral atelectasis with no leukocytosis. On IV Solu-Medrol. Benadryl bronchodilators. Management of vent critical care. C++ Professor on board #Pulmonary embolism: Was recently diagnosed about 2 weeks ago. On p.o. Eliquis 5 mg twice daily for G-tube #Lactic acidosis: Lactic acid 6.6. Anion gap is also mildly elevated at 16. Will hydrate aggressively with IV fluids and trend lactic acid. #Type 2 diabetes mellitus: On high-dose insulin sliding scale. Accu-Cheks Q6 hourly. 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 Charges/Coding Visit Charges Inpatient E&M: 24247 [facility] L3
[2025-03-17] MEDS: Lactated Ringers 1,000 ML 75 ML IV (14:57)
--- NOTE | 2025-03-17 15:57 | CASEMGMT ---
Social Work Pt was hospitalized 02/22-02/28. Pt discharged home with on 02/28 with the resumption of services from [facility]. Pt readmitted on 03/16 and is now intubated. Phone call to [facility] and spoke with Jl. Manda confirms that pt had been active with services and hospice services were revoked yesterday and pt's chose for pt to come to the hospital. Jl reports hospice has had multiple goals of care conversations with pt and , and continues to to request hospitalization for pt. Tos also states that pt's has informed hospice that managing pt at home has been difficult and SNF placement may be needed. [facility] is will to see pt again once discharged from the hospital, but [facility] does state a deeper goals of care meeting is warranted. Phone call to pt Abraham. Abraham states pt has been getting much more restless at night and hospice provided ativian for this but it just made pt sleepy. Abraham states that she continues to work and pt had been able to stay alone up until a few weeks ago. Now pt has someone staying with him while she is away. Abraham reports that when she got home from work, pt's oxygen levels were in the 50s-70s and determined pt needed to be brought to the hospital. Short conversation regarding continuation of hospice services. Abraham states the plan is to restart hospice at discharge and hospice will follow him wherever he goes. She then states pt will need to go to rehab at time of discharge as pt is very weak. Due to current medical situation, OZ deferred discharge planning discussion at this time. OZ will follow up with pt and next week. Continued Goals of care conversation is warranted. Discharge planning on hold at this time. OZ will continue to follow for support and dc planning moving forward. MARTI Cloud
[2025-03-17] MEDS: fentaNYL drip 100 ML 7.5 MCG CONT INF (16:16)
[2025-03-17 20:12] LABS: Reflex Lactate? Y
--- NOTE | 2025-03-17 21:04 | NUR.TO.PHY ---
2100 notified Preeti Meza NP of patients lactate result of 5.7. no new orders at this time.
[2025-03-17] MEDS: Vancomycin Trough/Random Due 1 LAB MC (21:20)
[2025-03-17 22:11] LABS: Vancomycin, Trough Level 35.3 ug/mL (5.0-15.0)
--- NOTE | 2025-03-17 22:23 | PCM.RX.CS ---
Consult Antibiotic Management Pharmacy has been consulted to manage selected antibiotic: Vancomycin Type of Intervention Type of Consult: Follow-up Suspected Infection Suspected Infection: Pneumonia Labs Labs: Sodium 136 mmol/L (133-145) 03/17/25 11:50 Potassium 4.2 mmol/L (3.3-5.1) 03/17/25 11:50 Chloride 98 mmol/L (98-108) 03/17/25 11:50 Carbon Dioxide 23.5 mmol/L (21.0-32.0) 03/17/25 11:50 Anion Gap 15 (5-15) 03/17/25 11:50 BUN 15 mg/dL (4-19) 03/17/25 11:50 Creatinine 1.66 mg/dL (0.70-1.20) H 03/17/25 11:50 Est GFR (MDRD) Non-Af 45 (>60) L 03/17/25 11:50 BUN/Creatinine Ratio 9.0 RATIO (10-20) L 03/17/25 11:50 Glucose 399 mg/dL (70-99) H 03/17/25 11:50 Vancomycin Trough 35.3 ug/mL (5.0-15.0) H 03/17/25 21:25 Microbiology Microbiology: Microbiology 03/16/25 20:22 Sputum, Tracheal Aspirate Gram Stain - Final 03/16/25 20:22 Sputum, Tracheal Aspirate Respiratory Culture - Preliminary Appears to be normal respiratory cristel. Further studies to follow. 03/17/25 03:50 Mucosa - Nasopharyngeal Respiratory Panel (PCR) - Final Rhinovirus 03/17/25 03:50 Nasal Secretion MRSA (PCR) - Final Meth. resistant Staph. aureus 03/16/25 20:25 Mucosa - Nasopharyngeal SARS-CoV-2, Influenza & RSV (PCR) - Final Dosing Weight Weight used for dosin kg Estimated Creatinine Clearance Estimated Creatinine Clearance: 48 Goal Trough Goal Trough: 15-20 mcg/mL Pharmacy Plan for Drug Dosing Pharmacy Plan for Drug Dosing: Vancomycin trough level was high at 35.3. This was drawn 1hr prior to order, but more relating to the significant decrease in renal function (SCr from 0.57 to 1.66). Will suspend current dosing, and will draw a random vanco level in twelve hours to determine further orders. Pharmacy Service will continue to monitor and adjust dosing as required. Follow-Up Labs Follow-Up Labs: Trough: Vancomycin (random) Date/Time Labs Ordered Labs to be done on [date and time ordered]: 03/18/25 @0930 (random)
[2025-03-18] VITALS (36 sets, daily range): BP systolic 132–178; BP diastolic 64–94; PULSE 48–84; RESP 14–19; TEMP 36–36.9; O2SAT 92–98; BMI 38.3
[2025-03-18 00:13] LABS: Reflex Lactate? Y
[2025-03-18] MEDS: Propofol 10MG/Ml 1,000 MG/100 ML Bottle 12.4 MG CONT INF ×2 (01:57→08:18)
[2025-03-18] MEDS: CHLORHEXIDINE GLUC 2% CLOTH 1 EACH TOWELETTE TOPICAL (01:57)
[2025-03-18] MEDS: 0.9% Saline Lock 10 ML Syringe IV ×3 (01:58→20:56)
[2025-03-18 03:33] LABS: Hematocrit 35.3 % (40-54); Hemoglobin 11.1 g/dL (13.0-16.5); Immature Granulocytes Count 0.190 X10^3/uL (0.0-0.0); Mean Corp Hgb Conc 31.4 g/dL (32-36); Mean Corpuscular Volume 85.7 fL (80-94); Mean Platelet Vol. 9.6 fl (6.2-12.0); NRBC Flagged by Analyzer 0 % (0-5); Platelet Count 292 K/mm3 (150-450); RBC Distribution Width CV 16.4 % (11.6-14.6); RBC Distribution Width SD 51.5 fl (35.1-43.9); Red Blood Count 4.12 M/mm3 (4.6-6.2); White Blood Count 12.7 K/mm3 (4.4-11.0)
[2025-03-18 03:56] LABS: Anion Gap 14 (5-15); BUN 20 mg/dL (4-19); BUN/Creat Ratio 8.5 RATIO (10-20); Calcium,Total 8.6 mg/dL (7.6-11.0); Carbon Dioxide 23.7 mmol/L (21.0-32.0); Chloride 99 mmol/L (98-108); Estimated Creatinine Clearance 33.31 ml/min (50-250); Glucose 366 mg/dL (70-99); Potassium 4.3 mmol/L (3.3-5.1)
[2025-03-18] MEDS: Lactated Ringers 1,000 ML 75 ML IV (04:24)
[2025-03-18 04:35] LABS: Base Excess 0 mmol/L (-2 to +2); FI02 35.0; PEEP 5; PO2 60 mmHG (75-100); RR 14; SITE L Radial; SO2 90 % (94-98)
--- NOTE | 2025-03-18 05:10 | RAD_ITS ---
PROCEDURE: CHEST 1 VIEW (PORTABLE) 03/18/2025 REASON FOR EXAM: PNEUMONIA TECHNIQUE: Frontal view of the chest. COMPARISON: CT chest 03/17/2025 FINDINGS: Hardware: The ET tube terminates 5 cm above the ede. The NG tube descends into the stomach with the tip is located below the image. Heart: Moderate cardiomegaly. Lungs: Diffuse airspace opacities consistent with pneumonia along with small pleural effusions. No pneumothorax. Bones: RAD/Chest 1 View (Portable) IMPRESSION: Diffuse airspace opacities consistent with pneumonia along with small pleural e ffusions. No pneumothorax. The ET tube terminates 5 cm above the ede. The NG tube descends into the stomach with the tip is located below the image. Reading Location: [id number]
[2025-03-18] MEDS: fentaNYL drip 100 ML 7.5 MCG CONT INF ×2 (06:27→18:43)
[2025-03-18] MEDS: Piperacil/Tazobactam 3.375 GM in 0.9% Normal Saline (50mL MB+) 50 ML IV ×3 (06:28→20:50)
[2025-03-18] MEDS: 0.9% Normal Saline (250mL Bag) 250 ML 15 ML IV (06:29)
[2025-03-18] MEDS: Vancomycin Trough/Random Due 1 LAB MC ×2 (08:10→09:24)
[2025-03-18] MEDS: Chlorhexidine 15 ML PO ×2 (08:11→20:51)
[2025-03-18] MEDS: Pantoprazole Sodium 40 MG in 0.9% Normal Saline (100mL MB+) 100 ML 300 MG IV (08:16)
[2025-03-18] MEDS: APIXABAN 5 MG TABLET GT ×2 (08:16→20:50)
[2025-03-18 08:38] LABS: Vancomycin, Random Level 33.0 ug/mL (0.0-15.0)
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
--- NOTE | 2025-03-18 09:34 | PCM.RX.CS ---
Consult Antibiotic Management Pharmacy has been consulted to manage selected antibiotic: Vancomycin Type of Intervention Type of Consult: Follow-up Suspected Infection Suspected Infection: Pneumonia Labs Labs: Sodium 136 mmol/L (133-145) 03/18/25 03:15 Potassium 4.3 mmol/L (3.3-5.1) 03/18/25 03:15 Chloride 99 mmol/L (98-108) 03/18/25 03:15 Carbon Dioxide 23.7 mmol/L (21.0-32.0) 03/18/25 03:15 Anion Gap 14 (5-15) 03/18/25 03:15 BUN 20 mg/dL (4-19) H 03/18/25 03:15 Creatinine 2.39 mg/dL (0.70-1.20) H 03/18/25 03:15 Est GFR (MDRD) Non-Af 29 (>60) L 03/18/25 03:15 BUN/Creatinine Ratio 8.5 RATIO (10-20) L 03/18/25 03:15 Glucose 366 mg/dL (70-99) H 03/18/25 03:15 Vancomycin Trough 35.3 ug/mL (5.0-15.0) H 03/17/25 21:25 Random Vancomycin 33.0 ug/mL (0.0-15.0) H 03/18/25 08:00 Microbiology Microbiology: Microbiology 03/16/25 20:22 Sputum, Tracheal Aspirate Gram Stain - Final 03/16/25 20:22 Sputum, Tracheal Aspirate Respiratory Culture - Preliminary Appears to be normal respiratory cristel. Further studies to follow. 03/17/25 03:50 Mucosa - Nasopharyngeal Respiratory Panel (PCR) - Final Rhinovirus 03/17/25 03:50 Nasal Secretion MRSA (PCR) - Final Meth. resistant Staph. aureus 03/16/25 20:25 Mucosa - Nasopharyngeal SARS-CoV-2, Influenza & RSV (PCR) - Final Goal Trough Goal Trough: 15-20 mcg/mL Pharmacy Plan for Drug Dosing Pharmacy Plan for Drug Dosing: VANCOMYCIN LEVEL RECEIVED Current Vancomycin Dose: ON HOLD- last dose was 1250mg administered 03/17 @1451 Number of Doses Received: 3 Vancomycin Level: 33 Hours Since Last Dose: 17hr Renal Function: SCr 2.39/ CrCl 33 mL/min Renal Function Trend: significant decline from admission (SCr 0.57/ CrCl 101 ml/min) Lab/Micro: SCx growing MRSA Vancomycin Plan/Comments: Patient had a random trough drawn which resulted in a value of 33 (goal 15-20). patient has had a significant decline in renal function which is likely contributing to the slow rate of clearance of vancomycin. Will continue to hold vancomycin and recheck a trough tomorrow morning with morning labs. Will re-dose vancomycin once trough is <20. Pending Level: *RANDOM* 03/19/25 @0600 Pharmacy Service will continue to monitor and adjust dosing as required.
[2025-03-18] MEDS: TITRATION PARAMETER CHANGE 1 EACH IV (09:38)
--- NOTE | 2025-03-18 13:23 | PN_ITS ---
Subjective Subjective Patient seen and examined with his nurse by his bedside. He remains intubated and sedated. Critical care did not do a spontaneous breathing trial because his BP is running high. He was started on hydralazine for his BP. Unable to do review of systems as he is intubated and sedated. Objective Data Objective Data Vital Signs: Vital Signs Temp Pulse Resp BP Pulse Ox O2 Del Method O2 Flow Rate 97.9 F 60 14 141/72 H 93 Mechanical Ventilator 40 03/18/25 12:00 03/18/25 13:15 03/18/25 13:15 03/18/25 12:00 03/18/25 13:15 03/18/25 12:00 03/16/25 23:30 FiO2 40 03/18/25 12:00 Oxygen Flow Rate (L/min) 40 Oxygen Delivery Method Mechanical Ventilator Weight: 237 lb 10.533 oz Body Mass Index (BMI) 38.3 Intake & Output: Intake and Output for Last 24 Hours 03/16/25 03/17/25 03/18/25 23:59 23:59 23:59 Intake Total 151.89 / 156.01 4730.38 / 4750.28 2347.34 / 2347.34 Output Total 955 / 955 650 / 650 Balance 151.89 / 156.01 3775.38 / 3795.28 1697.34 / 1697.34 Lab / Micro Data 03/18/25 03:15 03/18/25 03:15 Labs: Laboratory Results - last 24 hr 03/17/25 11:08: POC Glucose 351 H 03/17/25 16:10: Lactic Acid 5.5 H* 03/17/25 17:28: POC Glucose 303 H 03/17/25 20:10: Lactic Acid 5.7 H* 03/17/25 21:25: Vancomycin Trough 35.3 H 03/18/25 00:03: POC Glucose 331 H 03/18/25 03:15: WBC 12.7 H, RBC 4.12 L, Hgb 11.1 L, Hct 35.3 L, MCV 85.7, MCH 26.9 L, MCHC 31.4 L D, RDW Std Deviation 51.5 H, RDW Coeff of Josue 16.4 H, Plt Count 292, MPV 9.6, Immature Gran % (Auto) 1.500 H, Neut % (Auto) 85.4 H, Lymph % (Auto) 6.8 L, [place] % (Auto) 6.1, Eos % (Auto) 0.0, Baso % (Auto) 0.2, Absolute Neuts (auto) 10.9 H, Absolute Lymphs (auto) 0.86, Nucleated RBC % 0, Sodium 136, Potassium 4.3, Chloride 99, Carbon Dioxide 23.7, Anion Gap 14, BUN 20 H, C reatinine 2.39 H, Estim Creat Clear Calc 33.31 L, Est GFR (MDRD) Non-Af 29 L, B UN/Creatinine Ratio 8.5 L, Glucose 366 H, Lactic Acid 3.9 H*, Calcium 8.6 03/18/25 06:36: POC Glucose 297 H 03/18/25 08:00: Random Vancomycin 33.0 H 03/18/25 11:14: POC Glucose 277 H Micro: Microbiology 03/16/25 20:22 Sputum, Tracheal Aspirate Gram Stain - Final 03/16/25 20:22 Sputum, Tracheal Aspirate Respiratory Culture - Preliminary 03/17/25 03:50 Mucosa - Nasopharyngeal Respiratory Panel (PCR) - Final Rhinovirus 03/17/25 03:50 Nasal Secretion MRSA (PCR) - Final Meth. resistant Staph. aureus 03/16/25 20:25 Mucosa - Nasopharyngeal SARS-CoV-2, Influenza & RSV (PCR) - Final ABG Data ABG results: ABG 03/18/25 04:30 Specimen Type ART Sample Site L Radial pH 7.38 Bicarbonate Actual 25.3 Total CO2 27 Base Excess 0 O2 Saturation 90 L O2 % 35.0 ABG pCO2 43.2 ABG pO2 60 L Rafal Test N/A Respiration Rate 14 O2 Delivery Device Adult Vent Vent Mode AC Tidal Volume 400.0 POC PEEP 5 Radiography Diagnostic Testing: Radiology Impression KUB X-Ray 03/17/25 13:45 IMPRESSION: The tip of the orogastric tube is in the distal portion of the stomach. Improved aeration of the lung bases. Reading Location: [id number] Chest X-Ray 03/18/25 05:10 IMPRESSION: Diffuse airspace opacities consistent with pneumonia along with small pleural effusions. No pneumothorax. The ET tube terminates 5 cm above the ede. The NG tube descends into the stomach with the tip is located below the image. Reading Location: [facility] Physical Exam Const Constitutional Narrative: intubated, sedated. RASS score is 0 General Appearance: intubated and patient mechanically ventilated HEENT normocephalic, head/scalp atraumatic, moist oral mucous membranes and oropharynx normal Eyes PERRL, EOMs intact bilaterally and conjunctivae normal Neck supple and no JVD Lymph Lymphatic: no lymphedema noted Resp Resp Narrative: intubated, sedated. Moderately diminished breath sounds bibasally, no wheezes or crackles. Auscultation: Negative for crackles or rales Cardio regular rate, regular rhythm, S1 normal heart sound, S2 normal heart sound and no murmurs GI normal to inspection, nondistended, normoactive bowel sounds, soft to palpation and non-tender GI Narrative: has colostomy bag Extremity normal capillary refill, no clubbing, cyanosis or edema and no calf tenderness General Extremity: no tenderness to palpation of joints or extremities Skin no rashes or lesions noted General Skin Exam: no breakdown Neuro Neuro Narrative: intubated, sedated Sensorium / Orientation: sedated on vent Motor Exam: general weakness Psych Psych Narrative: intubated, sedated. RASS score is -3. Appearance: intubated Assessment & Plan Assessment/Plan (1) Decubitus ulcer of right buttock, stage 3: (2) Acute on chronic respiratory failure with hypoxia and hypercapnia: PLAN: Plan #Acute hypoxic and hypercapnic respiratory failure due to pneumonia and COPD exacerbation and rhinovirus infection * Remains intubated and sedated. RASS score is 0. * Currently on IV Zosyn. Chest x-ray showed bilateral atelectasis with no leukocytosis. * On IV Solu-Medrol. Benadryl bronchodilators. Management of vent critical care. Research Development Director on board * BP was elevated this morning and he could not have the spontaneous breathing trial. #Pulmonary embolism: Was recently diagnosed about 2 weeks ago. On p.o. Eliquis 5 mg twice daily for G-tube #Lactic acidosis: Lactic acid 6.6. Anion gap is also mildly elevated at 16. Hydrated with IVF and lactic acid trended down to 3.9. #JOSELITO: * likely vancomycin induced. Cr is up to 2.39 today. Was up at 1.66 yesterday, with a baseline of 0.3. * vancomycin trough is 35.3 today. Hold vancomycin. * Monitor kidney function. if it doesnt improve, consult nephrology #Type 2 diabetes mellitus: On high-dose insulin sliding scale. Accu-Cheks Q6 hourly. 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 DVT prophylaxis: not indicated as patient on eliquis. Charges/Coding Visit Charges Inpatient E&M: 67301 Subs Hosp L3
[2025-03-18] MEDS: Propofol 10MG/Ml 1,000 MG/100 ML Bottle 19.4 MG CONT INF ×2 (13:40→17:34)
[2025-03-18] MEDS: Propofol 10MG/Ml 1,000 MG/100 ML Bottle 16.2 MG CONT INF (23:00)
[2025-03-19] VITALS (35 sets, daily range): BP systolic 117–159; BP diastolic 61–97; PULSE 57–101; RESP 12–24; TEMP 36.3–37.3; O2SAT 94–100; BMI 36.8
[2025-03-19] MEDS: CHLORHEXIDINE GLUC 2% CLOTH 1 EACH TOWELETTE TOPICAL (01:18)
[2025-03-19] MEDS: Propofol 10MG/Ml 1,000 MG/100 ML Bottle 19.5 MG CONT INF ×2 (03:13→07:59)
[2025-03-19] MEDS: 0.9% Saline Lock 10 ML Syringe IV ×3 (05:09→21:31)
[2025-03-19] MEDS: Piperacil/Tazobactam 3.375 GM in 0.9% Normal Saline (50mL MB+) 50 ML IV ×3 (05:10→21:27)
[2025-03-19] MEDS: Lactated Ringers 1,000 ML 30 ML IV (05:10)
[2025-03-19] MEDS: 0.9% Normal Saline (250mL Bag) 250 ML 15 ML IV (05:11)
[2025-03-19 05:26] LABS: Hematocrit 33.5 % (40-54); Hemoglobin 10.8 g/dL (13.0-16.5); Immature Granulocytes Count 0.280 X10^3/uL (0.0-0.0); Mean Corp Hgb Conc 32.2 g/dL (32-36); Mean Corpuscular Volume 84.4 fL (80-94); Mean Platelet Vol. 9.3 fl (6.2-12.0); NRBC Flagged by Analyzer 0 % (0-5); Platelet Count 302 K/mm3 (150-450); RBC Distribution Width CV 16.7 % (11.6-14.6); RBC Distribution Width SD 51.4 fl (35.1-43.9); Red Blood Count 3.97 M/mm3 (4.6-6.2); White Blood Count 15.4 K/mm3 (4.4-11.0)
[2025-03-19 05:47] LABS: Vancomycin, Random Level 31.2 ug/mL (0.0-15.0)
[2025-03-19 05:55] LABS: AST(SGOT) 49 U/L (<=37); Alanine Aminotransfer ALT/SGPT 91 U/L (<=46); Albumin, Serum 3.2 g/dL (3.4-4.8); Alkaline Phosphatase 70 U/L (40-129); Anion Gap 16 (5-15); BUN 32 mg/dL (4-19); BUN/Creat Ratio 9.1 RATIO (10-20); Calcium,Total 8.9 mg/dL (7.6-11.0); Carbon Dioxide 23.3 mmol/L (21.0-32.0); Chloride 103 mmol/L (98-108); Estimated Creatinine Clearance 22.67 ml/min (50-250); Globulin 2.6 g/dL (2.2-4.2); Glucose 300 mg/dL (70-99); Potassium 4.1 mmol/L (3.3-5.1)
--- NOTE | 2025-03-19 06:01 | PCM.RX.CS ---
Consult Antibiotic Management Pharmacy has been consulted to manage selected antibiotic: Vancomycin Type of Intervention Type of Consult: Follow-up Labs Labs: Sodium 142 mmol/L (133-145) 03/19/25 05:10 Potassium 4.1 mmol/L (3.3-5.1) 03/19/25 05:10 Chloride 103 mmol/L (98-108) 03/19/25 05:10 Carbon Dioxide 23.3 mmol/L (21.0-32.0) 03/19/25 05:10 Anion Gap 16 (5-15) H 03/19/25 05:10 BUN 32 mg/dL (4-19) H 03/19/25 05:10 Creatinine 3.52 mg/dL (0.70-1.20) H 03/19/25 05:10 Est GFR (MDRD) Non-Af 18 (>60) L 03/19/25 05:10 BUN/Creatinine Ratio 9.1 RATIO (10-20) L 03/19/25 05:10 Glucose 300 mg/dL (70-99) H 03/19/25 05:10 Vancomycin Trough 35.3 ug/mL (5.0-15.0) H 03/17/25 21:25 Random Vancomycin 31.2 ug/mL (0.0-15.0) H 03/19/25 05:10 Microbiology Microbiology: Microbiology 03/16/25 20:22 Sputum, Tracheal Aspirate Gram Stain - Final 03/16/25 20:22 Sputum, Tracheal Aspirate Respiratory Culture - Preliminary 03/17/25 03:50 Mucosa - Nasopharyngeal Respiratory Panel (PCR) - Final Rhinovirus 03/17/25 03:50 Nasal Secretion MRSA (PCR) - Final Meth. resistant Staph. aureus 03/16/25 20:25 Mucosa - Nasopharyngeal SARS-CoV-2, Influenza & RSV (PCR) - Final Dosing Weight Weight used for dosin kg Estimated Creatinine Clearance Estimated Creatinine Clearance: 23 Goal Trough Goal Trough: 15-20 mcg/mL Pharmacy Plan for Drug Dosing Pharmacy Plan for Drug Dosing: Random vancomycin level drawn 03/19 @0510 was still very high at 31.2. This was functionally a 38hr level. Renal function continuing to decrease - SCr to 3.52. Will continue to hold any vancomycin dosing, and will draw another random level in two days to monitor. Pharmacy Service will continue to monitor and adjust dosing as required. Follow-Up Labs Follow-Up Labs: Trough: Vancomycin (random) Date/Time Labs Ordered Labs to be done on [date and time ordered]: 03/21/25 @0600 (random)
[2025-03-19] MEDS: APIXABAN 5 MG TABLET GT (07:52)
[2025-03-19] MEDS: Chlorhexidine 15 ML PO (07:52)
[2025-03-19] MEDS: Pantoprazole Sodium 40 MG in 0.9% Normal Saline (100mL MB+) 100 ML 300 MG IV (07:58)
[2025-03-19] MEDS: fentaNYL drip 100 ML 7.5 MCG CONT INF (08:34)
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
--- NOTE | 2025-03-19 12:13 | PCM.PROGNOTE ---
Subjective Subjective Patient seen and examined. His nurse was by his bedside. He remains intubated and sedated. He was however more alert and able to open his eyes and shook out his head. Unable to do comprehensive review of systems though as he still remains intubated. Creatinine has trended up to 3.52 today. Objective Data Objective Data Vital Signs: Vital Signs Temp Pulse Resp BP Pulse Ox O2 Del Method O2 Flow Rate 98.4 F 61 14 134/69 H 97 Mechanical Ventilator 40 03/19/25 08:00 03/19/25 11:22 03/19/25 11:22 03/19/25 10:00 03/19/25 11:22 03/19/25 10:00 03/16/25 23:30 FiO2 40 03/19/25 07:00 Oxygen Flow Rate (L/min) 40 Oxygen Delivery Method Mechanical Ventilator Weight: 228 lb 13.437 oz Body Mass Index (BMI) 36.8 Intake & Output: Intake and Output for Last 24 Hours 03/17/25 03/18/25 03/19/25 23:59 23:59 23:59 Intake Total 4730.38 / 4750.28 2726.09 / 2748.44 1297.97 / 1297.97 Output Total 955 / 955 1000 / 1350 575 / 575 Balance 3775.38 / 3795.28 1726.09 / 1398.44 722.97 / 722.97 Lab / Micro Data 03/19/25 05:10 03/19/25 05:10 Labs: Laboratory Results - last 24 hr 03/18/25 17:36: POC Glucose 322 H 03/18/25 23:49: POC Glucose 304 H 03/19/25 05:10: WBC 15.4 H, RBC 3.97 L, Hgb 10.8 L, Hct 33.5 L, MCV 84.4, MCH 27.2, MCHC 32.2, RDW Std Deviation 51.4 H, RDW Coeff of Josue 16.7 H, Plt Count 302, MPV 9.3, Immature Gran % (Auto) 1.800 H, Neut % (Auto) 86.0 H, Lymph % (Auto) 5.5 L, [place] % (Auto) 6.6, Eos % (Auto) 0.0, Baso % (Auto) 0.1, Absolute Neuts (auto) 13.2 H, Absolute Lymphs (auto) 0.84, Nucleated RBC % 0, Sodium 142, Potassium 4.1, Chloride 103, Carbon Dioxide 23.3, Anion Gap 16 H, BUN 32 H, Creatinine 3.52 H, Estim Creat Clear Calc 22.67 L, Est GFR (MDRD) Non-Af 18 L, BUN/Creatinine Ratio 9.1 L, Glucose 300 H, Calcium 8.9, Total Bilirubin 0.25, AST 49 H, ALT 91 H, Alkaline Phosphatase 70, Total Protein 5.7 L, Albumin 3.2 L, Globulin 2.6, Albumin/Globulin Ratio 1.2, Random Vancomycin 31.2 H 03/19/25 05:46: POC Glucose 266 H Micro: Microbiology 03/16/25 22:09 Blood Culture (Wb) - Right Forearm Blood Culture - Preliminary No growth in 48 hours. 03/16/25 22:05 Blood Culture (Wb) - Right Hand Blood Culture - Preliminary No growth in 48 hours. 03/16/25 20:22 Sputum, Tracheal Aspirate Gram Stain - Final 03/16/25 20:22 Sputum, Tracheal Aspirate Respiratory Culture - Final 03/17/25 03:50 Mucosa - Nasopharyngeal Respiratory Panel (PCR) - Final Rhinovirus 03/17/25 03:50 Nasal Secretion MRSA (PCR) - Final Meth. resistant Staph. aureus 03/16/25 20:25 Mucosa - Nasopharyngeal SARS-CoV-2, Influenza & RSV (PCR) - Final Physical Exam Const Constitutional Narrative: intubated, sedated. RASS score is 0 General Appearance: intubated and patient mechanically ventilated HEENT normocephalic, head/scalp atraumatic, moist oral mucous membranes and oropharynx normal Eyes PERRL, EOMs intact bilaterally and conjunctivae normal Neck supple and no JVD Lymph Lymphatic: no lymphedema noted Resp normal respiratory effort, no retractions and no use of accessory muscles Resp Narrative: intubated, sedated. Moderately diminished breath sounds bibasally, no wheezes or crackles. Auscultation: rhonchi and wheezes; Negative for crackles or rales Cardio regular rate, regular rhythm, S1 normal heart sound, S2 normal heart sound and no murmurs GI normal to inspection, nondistended, normoactive bowel sounds, soft to palpation, non-tender and non-distended; Negative for hepatosplenomegaly GI Narrative: has colostomy bag Extremity normal capillary refill, no clubbing, cyanosis or edema and no calf tenderness General Extremity: no tenderness to palpation of joints or extremities Skin no rashes or lesions noted General Skin Exam: no breakdown Neuro Neuro Narrative: intubated, sedated Sensorium / Orientation: sedated on vent Motor Exam: general weakness Psych Psych Narrative: intubated, sedated. RASS score is 0. Appearance: intubated Assessment & Plan Assessment/Plan (1) Decubitus ulcer of right buttock, stage 3: (2) Acute on chronic respiratory failure with hypoxia and hypercapnia: PLAN: Plan #Acute hypoxic and hypercapnic respiratory failure due to pneumonia and COPD exacerbation and rhinovirus infection Remains intubated and sedated. RASS score is 0. Remains on IV Zosyn. Chest x-ray showed bilateral atelectasis with no leukocytosis. vancomycin discontinued due to JOSELITO On IV Solu-Medrol. Benadryl bronchodilators. Management of vent critical care. Aromatherapist on board BP was elevated this morning and he could not have the spontaneous breathing trial. #Pulmonary embolism: Was recently diagnosed about 2 weeks ago. On p.o. Eliquis 5 mg twice daily for G-tube #Lactic acidosis: improved with IVF hydration. Likely due to respiratory failure. #JOSELITO: likely vancomycin induced. Creatinine is further up to 3.52 today. Was 2.39 yesterday. Has baseline Cr of ~ 0.5 vancomycin trough is 31.2 today. Hold vancomycin. nephrology consulted #Type 2 diabetes mellitus: On high-dose insulin sliding scale. Accu-Cheks Q6 hourly. 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 DVT prophylaxis: not indicated as patient on eliquis. Charges/Coding Visit Charges Inpatient E&M: 79426 [facility] H[facility] L3
[2025-03-19] MEDS: Propofol 10MG/Ml 1,000 MG/100 ML Bottle 9.7 MG CONT INF (13:59)
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
[2025-03-19] MEDS: APIXABAN 5 MG TABLET PO (21:27)
[2025-03-20] VITALS (24 sets, daily range): BP systolic 139–165; BP diastolic 62–95; PULSE 73–94; RESP 13–28; TEMP 36.4–36.9; O2SAT 94–99; BMI 38.5
[2025-03-20 04:04] LABS: Hematocrit 34.6 % (40-54); Hemoglobin 11.0 g/dL (13.0-16.5); Immature Granulocytes Count 0.230 X10^3/uL (0.0-0.0); Mean Corp Hgb Conc 31.8 g/dL (32-36); Mean Corpuscular Volume 83.8 fL (80-94); Mean Platelet Vol. 9.8 fl (6.2-12.0); NRBC Flagged by Analyzer 0 % (0-5); Platelet Count 333 K/mm3 (150-450); RBC Distribution Width CV 16.8 % (11.6-14.6); RBC Distribution Width SD 51.2 fl (35.1-43.9); Red Blood Count 4.13 M/mm3 (4.6-6.2); White Blood Count 14.9 K/mm3 (4.4-11.0)
[2025-03-20 04:23] LABS: AST(SGOT) 65 U/L (<=37); Alanine Aminotransfer ALT/SGPT 130 U/L (<=46); Albumin, Serum 3.2 g/dL (3.4-4.8); Alkaline Phosphatase 71 U/L (40-129); Anion Gap 17 (5-15); BUN 43 mg/dL (4-19); BUN/Creat Ratio 10.0 RATIO (10-20); Calcium,Total 8.8 mg/dL (7.6-11.0); Carbon Dioxide 23.0 mmol/L (21.0-32.0); Chloride 102 mmol/L (98-108); Estimated Creatinine Clearance 18.64 ml/min (50-250); Globulin 2.8 g/dL (2.2-4.2); Glucose 252 mg/dL (70-99); Potassium 3.9 mmol/L (3.3-5.1)
[2025-03-20] MEDS: Piperacil/Tazobactam 3.375 GM in 0.9% Normal Saline (50mL MB+) 50 ML IV ×2 (05:27→22:18)
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
[2025-03-20] MEDS: APIXABAN 5 MG TABLET PO ×2 (10:02→22:21)
[2025-03-20] MEDS: CHLORHEXIDINE GLUC 2% CLOTH 1 EACH TOWELETTE TOPICAL (10:02)
[2025-03-20] MEDS: Pantoprazole Sodium 40 MG in 0.9% Normal Saline (100mL MB+) 100 ML 300 MG IV (10:04)
--- NOTE | 2025-03-20 10:29 | CASEMGMT ---
Addendum entered by Lisy Ribeiro 03/20/25 11:09: Social Work SW did also speak w/pt and he is also in agreement w/SNF for therapy. He and will review the list and follow up w/SW who will be here this afternoon. SW updated also. STEFFI Cline Addendum entered by Lisy Ribeiro 03/20/25 10:45: Social Work SW called pt's back with the SNF list, reviewed it briefly with her. She will be here later today, SW explained will leave the list in pt's room and will put [facility] number on the list. SW asked to review the list and call Mee w/thom, and we will start the referral process. states understanding. SW left list in room for , will continue to follow. STEFFI Cline Original Note: Social Work SW called to clarify the plan for pt at d/c, if she is planning for a resumption of hospice or SNF for rehab. states she thinks pt needs some rehab before returning home. SW educated that pt cannot have both rehab and hospice at the same time, states understanding. At this point she is thinking rehab for pt and then eventually return home w/hospice. SW inquired if she would like a list, as SW noted in chart pt has been to SNF prior. states pt has been to [facility]. She would like a list of in network providers. SW will call back shortly with this list. SW will continue to follow. Physician updated. STEFFI Cline
--- NOTE | 2025-03-20 10:39 | CASEMGMT ---
Discharge Planning A list of?SNF providers including quality and resource use data and consistent with the patient's preferred geographic region, medical needs, and insurance network was created in [facility] [facility].? This list was provided to the OZ. Fiorella Rice, Discharge Planning Asst
[2025-03-20] MEDS: Lactated Ringers 1,000 ML 30 ML IV (10:41)
[2025-03-20 10:51] LABS: Hematocrit 33.4 % (40-54); Hemoglobin 10.9 g/dL (13.0-16.5); Immature Granulocytes Count 0.240 X10^3/uL (0.0-0.0); Mean Corp Hgb Conc 32.6 g/dL (32-36); Mean Corpuscular Volume 83.1 fL (80-94); Mean Platelet Vol. 8.8 fl (6.2-12.0); NRBC Flagged by Analyzer 0 % (0-5); Platelet Count 294 K/mm3 (150-450); RBC Distribution Width CV 16.8 % (11.6-14.6); RBC Distribution Width SD 51.5 fl (35.1-43.9); Red Blood Count 4.02 M/mm3 (4.6-6.2); White Blood Count 13.7 K/mm3 (4.4-11.0)
--- NOTE | 2025-03-20 10:55 | PN.HOSP_ITS ---
Subjective Subjective Patient was seen and examined today, he states he would like to go home, his goal is to get better while he is in the hospital. I had oncology social worker talk with his by phone today, she would like him to go to a penitentiary facility. Patient is off the ventilator at this time and on nasal cannula oxygen. Objective Data Objective Data Vital Signs: Vital Signs Temp Pulse Resp BP Pulse Ox O2 Del Method O2 Flow Rate 97.9 F 94 18 153/95 H 99 Nasal Cannula 4 03/20/25 08:24 03/20/25 10:00 03/20/25 10:00 03/20/25 10:00 03/20/25 10:00 03/20/25 10:00 03/20/25 10:00 FiO2 40 03/20/25 04:00 Oxygen Flow Rate (L/min) 4 Oxygen Delivery Method Nasal Cannula Weight: 108.9 kg Body Mass Index (BMI) 38.5 Intake & Output: Intake and Output for Last 24 Hours 03/18/25 03/19/25 03/20/25 23:59 23:59 23:59 Intake Total 2726.09 / 2748.44 2075.54 / 2075.54 724 / 724 Output Total 1000 / 1350 1175 / 1175 700 / 700 Balance 1726.09 / 1398.44 900.54 / 900.54 Lab / Micro Data 03/20/25 10:40 03/20/25 03:55 Labs: Laboratory Results - last 24 hr 03/19/25 12:43: POC Glucose 265 H 03/19/25 16:53: POC Glucose 265 H 03/19/25 23:50: POC Glucose 205 H 03/20/25 03:55: WBC 14.9 H, RBC 4.13 L, Hgb 11.0 L, Hct 34.6 L, MCV 83.8, MCH 26.6 L, MCHC 31.8 L, RDW Std Deviation 51.2 H, RDW Coeff of Josue 16.8 H, Plt Count 333, MPV 9.8, Immature Gran % (Auto) 1.500 H, Neut % (Auto) 87.9 H, Lymph % (Auto) 5.3 L, [place] % (Auto) 5.0, Eos % (Auto) 0.0, Baso % (Auto) 0.3, Absolute Neuts (auto) 13.1 H, Absolute Lymphs (auto) 0.79 L, Nucleated RBC % 0, Sodium 142, Potassium 3.9, Chloride 102, Carbon Dioxide 23.0, Anion Gap 17 H, BUN 43 H, Creatinine 4.28 H, Estim Creat Clear Calc 18.64 L, Est GFR (MDRD) Non-Af 14 L, BUN/Creatinine Ratio 10.0, Glucose 252 H, Calcium 8.8, Total Bilirubin 0.41, AST 65 H, ALT 130 H, Alkaline Phosphatase 71, Total Protein 6.0, Albumin 3.2 L, Globulin 2.8, Albumin/Globulin Ratio 1.2 03/20/25 05:26: POC Glucose 255 H 03/20/25 10:40: WBC 13.7 H, RBC 4.02 L, Hgb 10.9 L, Hct 33.4 L, MCV 83.1, MCH 27.1, MCHC 32.6, RDW Std Deviation 51.5 H, RDW Coeff of Josue 16.8 H, Plt Count 294, MPV 8.8, Immature Gran % (Auto) 1.800 H, Neut % (Auto) 87.7 H, Lymph % (Auto) 5.4 L, [place] % (Auto) 5.0, Eos % (Auto) 0.0, Baso % (Auto) 0.1, Absolute Neuts (auto) 12.0 H, Absolute Lymphs (auto) 0.74 L, Nucleated RBC % 0 Micro: Microbiology 03/16/25 22:09 Blood Culture (Wb) - Right Forearm Blood Culture - Preliminary No growth in 48 hours. 03/16/25 22:05 Blood Culture (Wb) - Right Hand Blood Culture - Preliminary No growth in 48 hours. 03/16/25 20:22 Sputum, Tracheal Aspirate Gram Stain - Final 03/16/25 20:22 Sputum, Tracheal Aspirate Respiratory Culture - Final 03/17/25 03:50 Mucosa - Nasopharyngeal Respiratory Panel (PCR) - Final Rhinovirus 03/17/25 03:50 Nasal Secretion MRSA (PCR) - Final Meth. resistant Staph. aureus 03/16/25 20:25 Mucosa - Nasopharyngeal SARS-CoV-2, Influenza & RSV (PCR) - Final Patient's Goals Of Care - F/U Goals Reviewed Goals of care reviewed with patient: Yes - Goals changed What matters most to you about your health?: Make a full medical recovery and return home What would you like to achieve or improve as a result of your hospital stay?: Return to medical baseline and return home with Physical Exam Const alert, no apparent distress and well nourished General Appearance: cooperative, well kempt and well developed Orientation / Consciousness: awake, oriented to person and oriented to place HEENT normocephalic, head/scalp atraumatic and moist oral mucous membranes Eyes PERRL, EOMs intact bilaterally and conjunctivae normal Neck supple, no JVD, thyroid normal and no carotid bruits General: trachea midline Resp normal respiratory effort, no retractions, no use of accessory muscles and clear to auscultation bilaterally Auscultation: Negative for rales, rhonchi or wheezes Cardio regular rate, regular rhythm, S1 normal heart sound, S2 normal heart sound, no murmurs, no rub and no gallops GI normal to inspection, nondistended, normoactive bowel sounds, soft to palpation, non-tender and non-distended Extremity Extremity Narrative: Patient has generalized atrophy of his lower extremities Skin no rashes or lesions noted General Skin Exam: no breakdown Neuro CN's II-XII intact bilaterally Neuro Narrative: Patient is paraplegic Sensorium / Orientation: awake, alert, oriented to person and oriented to place Speech: speech normal Psych affect normal Assessment & Plan Assessment/Plan (1) COPD (chronic obstructive pulmonary disease): PLAN: Plan Acute on chronic combined respiratory failure secondary to pneumonia and COPD exacerbation-patient is currently on nasal cannula oxygen, continue to monitor pulse ox, continue present antibiotics and IV corticosteroids and bronchodilators #2 recent pulmonary embolism present on admission-continue Eliquis #3 acute kidney injury-nephrology is following to assist with medical management, it does not appear the patient will need dialysis at this time, patient's creatinine however was 4.28 today which is trending upward. #4 type 2 diabetes-blood sugars will be monitored, sliding scale insulin will be administered as indicated #5 paraplegia-complicates care, management, recovery, and prognosis, PT and OT will continue to see the patient #6 acute on chronic debility-secondary to multiple medical problems and respiratory failure, wants the patient to go to a penitentiary facility for rehab services, case management and oncology social worker will work toward this #7 mild anemia-unknown whether it is chronic or acute-hemoglobin today was 10.9, he does not need to be transfused #8 hypothyroidism-patient is on Synthroid presently #9 lactic acidosis secondary to acute combined respiratory failure-no treatment necessary at this time #10 current use of anticoagulant secondary to recent pulmonary embolism- complicates care, management, recovery, and prognosis #11 BPH without obstruction-patient is on Flomax Total clinical time spent by myself addressing the patient's medical issues, reviewing all of his data, and collaborating with patient's care team: 50 minutes Charges/Coding Visit Charges Inpatient E&M: 87533 Subs Hosp L3
--- NOTE | 2025-03-20 11:36 | NURSING ---
attempted to call Abraham, pt's , to verify med list- no answer will attempt later
--- NOTE | 2025-03-20 11:37 | CASEMGMT ---
Social Work SW spoke w/therapy, they state pt seems to be at his baseline. There is concern on whether or not insurance will cover a SNF stay for rehab. SW called pt's to educate her on this. SW explained that as per therapy, pt is at his baseline. SW explained that we can try, but insurance may not cover a SNF stay for rehab. SW explained if pt is denied by insurance, we can look into applying for Medicaid or paying privately. states they will not qualify for Medicaid as she makes too much money, but is not sure they can afford to pay for SNF. SW offered support to . SW explained to let SW know later once she reviews the list some SNF choices, and that we will send the referrals and see what insurance says. states understanding. SW will continue to follow. STEFFI Cline
--- NOTE | 2025-03-20 13:53 | PCM.PN.REN ---
Subjective Subjective Extubated today. Saturating well on nasal cannula. Trying to eat. Objective Data Objective Data Vital Signs: Vital Signs Temp Pulse Resp BP Pulse Ox O2 Del Method O2 Flow Rate 97.7 F L 78 18 154/72 H 98 Nasal Cannula 4 03/20/25 12:31 03/20/25 12:31 03/20/25 12:31 03/20/25 12:31 03/20/25 12:31 03/20/25 12:31 03/20/25 12:31 FiO2 40 03/20/25 04:00 Oxygen Flow Rate (L/min) 4 Oxygen Delivery Method Nasal Cannula Weight: 108.9 kg Body Mass Index (BMI) 38.5 Intake & Output: Intake and Output for Last 24 Hours 03/18/25 03/19/25 03/20/25 23:59 23:59 23:59 Intake Total 2726.09 / 2748.44 2075.54 / 2075.54 724 / 724 Output Total 1000 / 1350 1175 / 1175 1100 / 1100 Balance 1726.09 / 1398.44 900.54 / 900.54 -376 / -376 Lab / Micro Data 03/20/25 10:40 03/20/25 03:55 Labs: Laboratory Results - last 24 hr 03/19/25 16:53: POC Glucose 265 H 03/19/25 23:50: POC Glucose 205 H 03/20/25 03:55: WBC 14.9 H, RBC 4.13 L, Hgb 11.0 L, Hct 34.6 L, MCV 83.8, MCH 26.6 L, MCHC 31.8 L, RDW Std Deviation 51.2 H, RDW Coeff of Josue 16.8 H, Plt Count 333, MPV 9.8, Immature Gran % (Auto) 1.500 H, Neut % (Auto) 87.9 H, Lymph % (Auto) 5.3 L, [place] % (Auto) 5.0, Eos % (Auto) 0.0, Baso % (Auto) 0.3, Absolute Neuts (auto) 13.1 H, Absolute Lymphs (auto) 0.79 L, Nucleated RBC % 0, Sodium 142, Potassium 3.9, Chloride 102, Carbon Dioxide 23.0, Anion Gap 17 H, BUN 43 H, Creatinine 4.28 H, Estim Creat Clear Calc 18.64 L, Est GFR (MDRD) Non-Af 14 L, BUN/Creatinine Ratio 10.0, Glucose 252 H, Calcium 8.8, Total Bilirubin 0.41, AST 65 H, ALT 130 H, Alkaline Phosphatase 71, Total Protein 6.0, Albumin 3.2 L, Globulin 2.8, Albumin/Globulin Ratio 1.2 03/20/25 05:26: POC Glucose 255 H 03/20/25 10:40: WBC 13.7 H, RBC 4.02 L, Hgb 10.9 L, Hct 33.4 L, MCV 83.1, MCH 27.1, MCHC 32.6, RDW Std Deviation 51.5 H, RDW Coeff of Josue 16.8 H, Plt Count 294, MPV 8.8, Immature Gran % (Auto) 1.800 H, Neut % (Auto) 87.7 H, Lymph % (Auto) 5.4 L, [place] % (Auto) 5.0, Eos % (Auto) 0.0, Baso % (Auto) 0.1, Absolute Neuts (auto) 12.0 H, Absolute Lymphs (auto) 0.74 L, Nucleated RBC % 0 03/20/25 12:26: POC Glucose 212 H Micro: Microbiology 03/16/25 22:09 Blood Culture (Wb) - Right Forearm Blood Culture - Preliminary No growth in 48 hours. 03/16/25 22:05 Blood Culture (Wb) - Right Hand Blood Culture - Preliminary No growth in 48 hours. 03/16/25 20:22 Sputum, Tracheal Aspirate Gram Stain - Final 03/16/25 20:22 Sputum, Tracheal Aspirate Respiratory Culture - Final 03/17/25 03:50 Mucosa - Nasopharyngeal Respiratory Panel (PCR) - Final Rhinovirus 03/17/25 03:50 Nasal Secretion MRSA (PCR) - Final Meth. resistant Staph. aureus 03/16/25 20:25 Mucosa - Nasopharyngeal SARS-CoV-2, Influenza & RSV (PCR) - Final Physical Exam Narrative no pallor no icterus no JVD s1s2 no murmurs lungs clear abdomen soft no organomegaly no edema no cyanosis westfall + Assessment & Plan Assessment/Plan (1) JOSELITO (acute kidney injury): PLAN: Baseline creatinine appears to be 0.5. Creatinine on admission was at baseline, progressively worsening over the last 2 to 3 days. Westfall catheter indwelling, urine output has been present. Discussed with staff, no concern for blockage of the catheter Urine analysis shows cells, protein but not reliable due to indwelling catheter CT chest with extensive consolidation changes He did receive vancomycin, there was couple of levels which were on the higher side Most likely ATN in the setting of sepsis. Currently not on any pressors. Blood pressure was in fact high this morning requiring blood pressure medications. He did have lactic acidosis which is now improving. No acute indications for renal replacement therapy today Will continue to follow Discussed with family at bedside 03/20/2025. Creatinine is higher. Urine output is okay, more than a liter. Potassium and bicarbonate are okay. No acute indications for renal replacement therapy. Hopefully ATN will recover soon.
[2025-03-20] MEDS: 0.9% Normal Saline (250mL Bag) 250 ML 15 ML IV (22:35)
[2025-03-21] VITALS (8 sets, daily range): BP systolic 148–186; BP diastolic 70–82; PULSE 51–78; RESP 18–20; TEMP 36.3–36.7; O2SAT 95–99; BMI 39.9
[2025-03-21] MEDS: 0.9% Saline Lock 10 ML Syringe IV ×5 (05:35→22:39)
[2025-03-21 06:36] LABS: Hematocrit 34.6 % (40-54); Hemoglobin 11.0 g/dL (13.0-16.5); Immature Granulocytes Count 0.260 X10^3/uL (0.0-0.0); Mean Corp Hgb Conc 31.8 g/dL (32-36); Mean Corpuscular Volume 84.2 fL (80-94); Mean Platelet Vol. 9.9 fl (6.2-12.0); NRBC Flagged by Analyzer 0 % (0-5); Platelet Count 298 K/mm3 (150-450); RBC Distribution Width CV 16.8 % (11.6-14.6); RBC Distribution Width SD 51.5 fl (35.1-43.9); Red Blood Count 4.11 M/mm3 (4.6-6.2); White Blood Count 12.8 K/mm3 (4.4-11.0)
[2025-03-21 07:11] LABS: AST(SGOT) 19 U/L (<=37); Alanine Aminotransfer ALT/SGPT 94 U/L (<=46); Albumin, Serum 3.3 g/dL (3.4-4.8); Alkaline Phosphatase 63 U/L (40-129); Anion Gap 15 (7-18); BUN 53 mg/dL (4-19); BUN/Creat Ratio 12.3 RATIO (10-20); Calcium,Total 8.6 mg/dL (7.6-11.0); Carbon Dioxide 22.3 mmol/L (20.0-29.0); Chloride 102 mmol/L (96-106); Estimated Creatinine Clearance 19.26 ml/min (50-250); Globulin 2.8 g/dL (2.2-4.2); Glucose 261 mg/dL (70-99); Potassium 4.4 mmol/L (3.5-5.1)
[2025-03-21 07:17] LABS: Vancomycin, Random Level 21.4 ug/mL (0.0-15.0)
--- NOTE | 2025-03-21 07:28 | PCM.RX.CS ---
Consult Antibiotic Management Pharmacy has been consulted to manage selected antibiotic: Vancomycin Type of Intervention Type of Consult: Follow-up Prior Doses of Antibiotics Prior Doses of Antibiotics Received/Current Regimen: dose currently being held due to high vanc levels Labs Labs: Sodium 139 mmol/L (135-145) 03/21/25 06:25 Potassium 4.4 mmol/L (3.5-5.1) 03/21/25 06:25 Chloride 102 mmol/L (96-106) 03/21/25 06:25 Carbon Dioxide 22.3 mmol/L (20.0-29.0) 03/21/25 06:25 Anion Gap 15 (7-18) 03/21/25 06:25 BUN 53 mg/dL (4-19) H 03/21/25 06:25 Creatinine 4.32 mg/dL (0.70-1.20) H 03/21/25 06:25 Est GFR (MDRD) Non-Af 14 (>60) L 03/21/25 06:25 BUN/Creatinine Ratio 12.3 RATIO (10-20) 03/21/25 06:25 Glucose 261 mg/dL (70-99) H 03/21/25 06:25 Vancomycin Trough 35.3 ug/mL (5.0-15.0) H 03/17/25 21:25 Random Vancomycin 21.4 ug/mL (0.0-15.0) H 03/21/25 06:25 Microbiology Microbiology: Microbiology 03/16/25 22:09 Blood Culture (Wb) - Right Forearm Blood Culture - Preliminary No growth in 48 hours. 03/16/25 22:05 Blood Culture (Wb) - Right Hand Blood Culture - Preliminary No growth in 48 hours. 03/16/25 20:22 Sputum, Tracheal Aspirate Gram Stain - Final 03/16/25 20:22 Sputum, Tracheal Aspirate Respiratory Culture - Final 03/17/25 03:50 Mucosa - Nasopharyngeal Respiratory Panel (PCR) - Final Rhinovirus 03/17/25 03:50 Nasal Secretion MRSA (PCR) - Final Meth. resistant Staph. aureus 03/16/25 20:25 Mucosa - Nasopharyngeal SARS-CoV-2, Influenza & RSV (PCR) - Final Dosing Weight Weight used for dosin.3 kg Estimated Creatinine Clearance Estimated Creatinine Clearance: 19 ml/min Goal Trough Goal Trough: 15-20 mcg/mL Pharmacy Plan for Drug Dosing Pharmacy Plan for Drug Dosing: The vanc random level drawn at 06:25 today was 21.4 mcg/ml. It continues to be above goal range so will continue to hold dosing. Repeat another random level tomorrow morning to see if a dose should be given tomorrow. SCr continues to rise - now at 4.32 from 4.28 and 3.52 the previous two days. Pharmacy Service will continue to monitor and adjust dosing as required. Follow-Up Labs Follow-Up Labs: Trough: Vancomycin (random) Date/Time Labs Ordered Labs to be done on [date and time ordered]: 03/22/25 06:00
[2025-03-21] MEDS: Pantoprazole Sodium 40 MG in 0.9% Normal Saline (100mL MB+) 100 ML 300 MG IV (09:12)
[2025-03-21] MEDS: CHLORHEXIDINE GLUC 2% CLOTH 1 EACH TOWELETTE TOPICAL (09:14)
[2025-03-21] MEDS: APIXABAN 5 MG TABLET PO ×2 (09:15→22:34)
[2025-03-21] MEDS: Piperacil/Tazobactam 3.375 GM in 0.9% Normal Saline (50mL MB+) 50 ML IV ×2 (09:24→22:41)
--- NOTE | 2025-03-21 12:48 | WOUNDNOTE ---
wound photo: right ischium
--- NOTE | 2025-03-21 14:15 | PN.RENAL_ITS ---
Subjective Subjective No new events Objective Data Objective Data Vital Signs: Vital Signs Temp Pulse Resp BP Pulse Ox O2 Del Method O2 Flow Rate 97.4 F L 78 20 H 148/70 H 99 Nasal Cannula 4 03/21/25 09:15 03/21/25 11:18 03/21/25 11:18 03/21/25 09:15 03/21/25 09:15 03/21/25 09:15 03/21/25 09:15 FiO2 40 03/20/25 04:00 Oxygen Flow Rate (L/min) 4 Oxygen Delivery Method Nasal Cannula Weight: 112.3 kg Body Mass Index (BMI) 39.9 Intake & Output: Intake and Output for Last 24 Hours 03/19/25 03/20/25 03/21/25 23:59 23:59 23:59 Intake Total 2075.54 / 2075.54 844 / 844 560 / 560 Output Total 1175 / 1175 1100 / 1100 2350 / 2350 Balance 900.54 / 900.54 -256 / -256 -1790 / -1790 Lab / Micro Data 03/21/25 06:25 03/21/25 06:25 Labs: Laboratory Results - last 24 hr 03/20/25 16:21: POC Glucose 301 H 03/20/25 22:18: POC Glucose 264 H 03/21/25 06:25: WBC 12.8 H, RBC 4.11 L, Hgb 11.0 L, Hct 34.6 L, MCV 84.2, MCH 26.8 L, MCHC 31.8 L, RDW Std Deviation 51.5 H, RDW Coeff of Josue 16.8 H, Plt Count 298, MPV 9.9, Immature Gran % (Auto) 2.000 H, Neut % (Auto) 86.8 H, Lymph % (Auto) 6.1 L, [place] % (Auto) 4.8, Eos % (Auto) 0.1, Baso % (Auto) 0.2, Absolute Neuts (auto) 11.1 H, Absolute Lymphs (auto) 0.78 L, Nucleated RBC % 0, Sodium 139, Potassium 4.4, Chloride 102, Carbon Dioxide 22.3, Anion Gap 15, BUN 53 H, C reatinine 4.32 H, Estim Creat Clear Calc 19.26 L, Est GFR (MDRD) Non-Af 14 L, BUN/Creatinine Ratio 12.3, Glucose 261 H, Calcium 8.6, Total Bilirubin 0.34, AST 19, ALT 94 H, Alkaline Phosphatase 63, Total Protein 6.1, Albumin 3.3 L, Globulin 2.8, Albumin/Globulin Ratio 1.2, Random Vancomycin 21.4 H 03/21/25 07:44: POC Glucose 253 H 03/21/25 12:06: POC Glucose 310 H Micro: Microbiology 03/16/25 22:09 Blood Culture (Wb) - Right Forearm Blood Culture - Preliminary No growth in 48 hours. 03/16/25 22:05 Blood Culture (Wb) - Right Hand Blood Culture - Preliminary No growth in 48 hours. 03/16/25 20:22 Sputum, Tracheal Aspirate Gram Stain - Final 03/16/25 20:22 Sputum, Tracheal Aspirate Respiratory Culture - Final 03/17/25 03:50 Mucosa - Nasopharyngeal Respiratory Panel (PCR) - Final Rhinovirus 03/17/25 03:50 Nasal Secretion MRSA (PCR) - Final Meth. resistant Staph. aureus 03/16/25 20:25 Mucosa - Nasopharyngeal SARS-CoV-2, Influenza & RSV (PCR) - Final Physical Exam Narrative no pallor no icterus no JVD s1s2 no murmurs lungs clear abdomen soft no organomegaly no edema no cyanosis westfall + Assessment & Plan Assessment/Plan (1) JOSELITO (acute kidney injury): PLAN: Baseline creatinine appears to be 0.5. Creatinine on admission was at baseline, progressively worsening over the last 2 to 3 days. Westfall catheter indwelling, urine output has been present. Discussed with staff, no concern for blockage of the catheter Urine analysis shows cells, protein but not reliable due to indwelling catheter CT chest with extensive consolidation changes He did receive vancomycin, there was couple of levels which were on the higher side Most likely ATN in the setting of sepsis. Currently not on any pressors. Blood pressure was in fact high this morning requiring blood pressure medications. He did have lactic acidosis which is now improving. No acute indications for renal replacement therapy today Will continue to follow Discussed with family at bedside 03/20/2025. Creatinine is higher. Urine output is okay, more than a liter. Potassium and bicarbonate are okay. No acute indications for renal replacement therapy. Hopefully ATN will recover soon. 03/21/2025. Creatinine today about the same. Urine output is good. Electrolytes are acceptable. Clinically looks significantly better. Likely recovering ATN.
--- NOTE | 2025-03-21 15:24 | CASEMGMT ---
Social Work Phone call placed to pt Abraham to discuss discharge plan. SW explained that pt does not meet skilled level of care as he is currently at baseline functionally and therapy is not recommending continued services at this time. Pt expressing understanding. SW discussed pt going to SNF under Medicaid or private pay. Abraham states that it has become increasingly difficult to care for pt at home. Abraham works and her daughter and law and sister help care for pt but cannot be there all the time and pt is home alone at times while works. Abraham does not think pt will qualify for Medicaid. SW spoke with pt regarding spousal support and that pt may qualify. SW offered for to speak with Scarlett with [facility] to be evaluated for Medicaid eligibility. agreeable to this. Email sent to Scarlett requesting a call to to assess for LTC Medicaid eligibility. SW to continue to follow for DC planning. MARTI Cloud
--- NOTE | 2025-03-21 19:11 | PN.HOSP_ITS ---
Subjective Subjective Patient was seen and examined today, he remains on nasal cannula oxygen at this time. I talked with pulmonary medicine about his care, his vancomycin was stopped today and he remains on Zosyn for presumed pneumonia. He was positive for rhinovirus on admission. Patient's nasal swab was positive for MRSA but pulmonary medicine does not feel he needs to be treated for possible MRSA infection. I talked at length with social work administrator, they do not feel the patient is qualified to go to a skilled facility as he is paraplegic at baseline. Patient's does not have funds for the patient to go to a skilled facility with self-pay. automotive services manager is going to have a Medicaid liaison work with the patient to see if he would qualify for Medicaid. Objective Data Objective Data Vital Signs: Vital Signs Temp Pulse Resp BP Pulse Ox O2 Del Method O2 Flow Rate 97.4 F L 59 L 18 158/71 H 96 Nasal Cannula 4 03/21/25 15:15 03/21/25 15:15 03/21/25 15:15 03/21/25 15:15 03/21/25 15:15 03/21/25 15:15 03/21/25 15:15 FiO2 40 03/20/25 04:00 Oxygen Flow Rate (L/min) 4 Oxygen Delivery Method Nasal Cannula Weight: 112.3 kg Body Mass Index (BMI) 39.9 Intake & Output: Intake and Output for Last 24 Hours 03/19/25 03/20/25 03/21/25 23:59 23:59 23:59 Intake Total 2075.54 / 2075.54 844 / 844 1130 / 1130 Output Total 1175 / 1175 1100 / 1100 2800 / 2800 Balance 900.54 / 900.54 -256 / -256 -1670 / -1670 Lab / Micro Data 03/21/25 06:25 03/21/25 06:25 Labs: Laboratory Results - last 24 hr 03/20/25 16:21: POC Glucose 301 H 03/20/25 22:18: POC Glucose 264 H 03/21/25 06:25: WBC 12.8 H, RBC 4.11 L, Hgb 11.0 L, Hct 34.6 L, MCV 84.2, MCH 26.8 L, MCHC 31.8 L, RDW Std Deviation 51.5 H, RDW Coeff of Josue 16.8 H, Plt Count 298, MPV 9.9, Immature Gran % (Auto) 2.000 H, Neut % (Auto) 86.8 H, Lymph % (Auto) 6.1 L, Rush % (Auto) 4.8, Eos % (Auto) 0.1, Baso % (Auto) 0.2, Absolute Neuts (auto) 11.1 H, Absolute Lymphs (auto) 0.78 L, Nucleated RBC % 0, Sodium 139, Potassium 4.4, Chloride 102, Carbon Dioxide 22.3, Anion Gap 15, BUN 53 H, C reatinine 4.32 H, Estim Creat Clear Calc 19.26 L, Est GFR (MDRD) Non-Af 14 L, BUN/Creatinine Ratio 12.3, Glucose 261 H, Calcium 8.6, Total Bilirubin 0.34, AST 19, ALT 94 H, Alkaline Phosphatase 63, Total Protein 6.1, Albumin 3.3 L, Globulin 2.8, Albumin/Globulin Ratio 1.2, Random Vancomycin 21.4 H 03/21/25 07:44: POC Glucose 253 H 03/21/25 12:06: POC Glucose 310 H 03/21/25 16:59: POC Glucose 253 H Micro: Microbiology 03/16/25 22:09 Blood Culture (Wb) - Right Forearm Blood Culture - Preliminary No growth in 48 hours. 03/16/25 22:05 Blood Culture (Wb) - Right Hand Blood Culture - Preliminary No growth in 48 hours. 03/16/25 20:22 Sputum, Tracheal Aspirate Gram Stain - Final 03/16/25 20:22 Sputum, Tracheal Aspirate Respiratory Culture - Final 03/17/25 03:50 Mucosa - Nasopharyngeal Respiratory Panel (PCR) - Final Rhinovirus 03/17/25 03:50 Nasal Secretion MRSA (PCR) - Final Meth. resistant Staph. aureus 03/16/25 20:25 Mucosa - Nasopharyngeal SARS-CoV-2, Influenza & RSV (PCR) - Final Physical Exam Narrative alert, no apparent distress and well nourished General Appearance: cooperative, well kempt and well developed Orientation / Consciousness: awake, oriented to person and oriented to place HEENT normocephalic, head/scalp atraumatic and moist oral mucous membranes Eyes PERRL, EOMs intact bilaterally and conjunctivae normal Neck supple, no JVD, thyroid normal and no carotid bruits General: trachea midline Resp normal respiratory effort, no retractions, no use of accessory muscles and clear to auscultation bilaterally Auscultation: Negative for rales, rhonchi or wheezes Cardio regular rate, regular rhythm, S1 normal heart sound, S2 normal heart sound, no murmurs, no rub and no gallops GI normal to inspection, nondistended, normoactive bowel sounds, soft to palpation, non-tender and non-distended Extremity Extremity Narrative: Patient has generalized atrophy of his lower extremities Skin no rashes or lesions noted General Skin Exam: no breakdown Neuro CN's II-XII intact bilaterally Neuro Narrative: Patient is paraplegic Sensorium / Orientation: awake, alert, oriented to person and oriented to place Speech: speech normal Psych affect normal Assessment & Plan Assessment/Plan (1) Right middle lobe pulmonary infiltrate: (2) COPD (chronic obstructive pulmonary disease): PLAN: Plan Acute on chronic combined respiratory failure secondary to pneumonia and COPD exacerbation due to rhinovirus infection-patient is currently on nasal cannula oxygen, continue to monitor pulse ox, continue present antibiotics and IV corticosteroids and bronchodilators #2 recent pulmonary embolism present on admission-continue Eliquis #3 acute kidney injury-nephrology is following to assist with medical management, it does not appear the patient will need dialysis at this time, patient's creatinine however was 4.28 today which is trending upward. #4 type 2 diabetes-blood sugars will be monitored, sliding scale insulin will be administered as indicated #5 paraplegia-complicates care, management, recovery, and prognosis, PT and OT will continue to see the patient #6 acute on chronic debility-secondary to multiple medical problems and respiratory failure, wants the patient to go to a jail facility for rehab services, case management and social work administrator will work toward this #7 mild anemia-unknown whether it is chronic or acute-hemoglobin today was 10.9, he does not need to be transfused #8 hypothyroidism-patient is on Synthroid presently #9 lactic acidosis secondary to acute combined respiratory failure-no treatment necessary at this time #10 current use of anticoagulant secondary to recent pulmonary embolism- complicates care, management, recovery, and prognosis #11 BPH without obstruction-patient is on Flomax #12 rhinovirus infection Total clinical time spent by myself addressing the patient's medical issues, reviewing all of his data, and collaborating with patient's care team: 35 minutes Charges/Coding Visit Charges Inpatient E&M: 84918 Subs Hosp L2
[2025-03-22] VITALS (7 sets, daily range): BP systolic 132–178; BP diastolic 61–85; PULSE 56–75; RESP 16–20; TEMP 36.4–36.9; O2SAT 93–96; BMI 41.8
[2025-03-22] MEDS: 0.9% Saline Lock 10 ML Syringe IV (06:34)
[2025-03-22] MEDS: Lactated Ringers 1,000 ML 30 ML IV (06:41)
[2025-03-22] MEDS: Piperacil/Tazobactam 3.375 GM in 0.9% Normal Saline (50mL MB+) 50 ML IV (09:44)
[2025-03-22] MEDS: Pantoprazole Sodium 40 MG in 0.9% Normal Saline (100mL MB+) 100 ML 300 MG IV (09:50)
[2025-03-22] MEDS: APIXABAN 5 MG TABLET PO ×2 (09:50→22:38)
--- NOTE | 2025-03-22 10:32 | CASEMGMT ---
Social Work SW called the . The reported she just spoke with Scarlett with [facility] and they will not qualify for Medicaid. The reported they want [facility] at [place]. SW reported she can provide the with a list of PP caregivers and the would like this list. SW informed her SW will meet with the when she comes to the hospital. ANNIE Paris
[2025-03-22 11:31] LABS: Anion Gap 16 (7-18); BUN 65 mg/dL (4-19); BUN/Creat Ratio 14.9 RATIO (10-20); Calcium,Total 8.7 mg/dL (7.6-11.0); Carbon Dioxide 18.8 mmol/L (20.0-29.0); Chloride 100 mmol/L (96-106); Estimated Creatinine Clearance 19.71 ml/min (50-250); Glucose 362 mg/dL (70-99); Potassium 4.7 mmol/L (3.5-5.1)
--- NOTE | 2025-03-22 12:48 | CASEMGMT ---
Social Work SW spoke with the and gave her a list of PP caregivers. The reported their electric bill is increasing. OZ spoke with her about HEAP and gave her [employer] resource. ANNIE Paris
--- NOTE | 2025-03-22 13:03 | PN.RENAL_ITS ---
Subjective Subjective Follow-up on acute kidney injury. Feels okay today, is at bedside Objective Data Objective Data Vital Signs: Vital Signs Temp Pulse Resp BP Pulse Ox O2 Del Method O2 Flow Rate 97.8 F 75 16 140/85 H 93 Nasal Cannula 2 03/22/25 09:40 03/22/25 09:40 03/22/25 09:40 03/22/25 09:40 03/22/25 09:40 03/22/25 10:00 03/22/25 10:00 FiO2 30 03/21/25 23:25 Oxygen Flow Rate (L/min) 2 Oxygen Delivery Method Nasal Cannula Weight: 117.7 kg Body Mass Index (BMI) 41.8 Intake & Output: Intake and Output for Last 24 Hours 03/20/25 03/21/25 03/22/25 23:59 23:59 23:59 Intake Total 844 / 844 2130 / 2130 50 / 50 Output Total 1100 / 1100 2800 / 3375 1075 / 1075 Balance -256 / -256 -670 / -1245 -1025 / -1025 Lab / Micro Data Attestation: I reviewed the patient's lab results. 03/21/25 06:25 03/22/25 10:56 Labs: Laboratory Results - last 24 hr 03/21/25 16:59: POC Glucose 253 H 03/21/25 22:30: POC Glucose 309 H 03/22/25 06:33: POC Glucose 252 H 03/22/25 10:56: Sodium 134 L, Potassium 4.7, Chloride 100, Carbon Dioxide 18.8 L , Anion Gap 16, BUN 65 H, Creatinine 4.33 H, Estim Creat Clear Calc 19.71 L, Est GFR (MDRD) Non-Af 14 L, BUN/Creatinine Ratio 14.9, Glucose 362 H, Calcium 8.7 03/22/25 11:37: POC Glucose 314 H Micro: Microbiology 03/16/25 22:05 Blood Culture (Wb) - Right Hand Blood Culture - Final No growth in 5 days. 03/16/25 22:09 Blood Culture (Wb) - Right Forearm Blood Culture - Final No growth in 5 days. 03/16/25 20:22 Sputum, Tracheal Aspirate Gram Stain - Final 03/16/25 20:22 Sputum, Tracheal Aspirate Respiratory Culture - Final 03/17/25 03:50 Mucosa - Nasopharyngeal Respiratory Panel (PCR) - Final Rhinovirus 03/17/25 03:50 Nasal Secretion MRSA (PCR) - Final Meth. resistant Staph. aureus 03/16/25 20:25 Mucosa - Nasopharyngeal SARS-CoV-2, Influenza & RSV (PCR) - Final Physical Exam Const alert, oriented x3, no apparent distress and average body habitus Orientation / Consciousness: oriented to person, oriented to place and oriented to time HEENT normocephalic Head and Scalp: atraumatic Resp no use of accessory muscles Auscultation: diminished lung sounds Cardio no murmurs and no rub GI non-tender Auscultation: normoactive bowel sounds Skin no rashes or lesions noted Psych cooperative Assessment & Plan Assessment/Plan (1) JOSELITO (acute kidney injury): PLAN: (1) JOSELITO (acute kidney injury): PLAN: Baseline creatinine appears to be 0.5. Creatinine on admission was at baseline, progressively worsening over the last 2 to 3 days. Benson catheter indwelling, urine output has been present. Discussed with staff, no concern for blockage of the catheter Urine analysis shows cells, protein but not reliable due to indwelling catheter CT chest with extensive consolidation changes He did receive vancomycin, there was couple of levels which were on the higher side Most likely ATN in the setting of sepsis. Currently not on any pressors. Blood pressure was in fact high this morning requiring blood pressure medications. He did have lactic acidosis which is now improving. No acute indications for renal replacement therapy today Will continue to follow Discussed with family at bedside 03/20/2025. Creatinine is higher. Urine output is okay, more than a liter. Potassium and bicarbonate are okay. No acute indications for renal replacement therapy. Hopefully ATN will recover soon. 03/21/2025. Creatinine today about the same. Urine output is good. Electrolytes are acceptable. Clinically looks significantly better. Likely recovering ATN. 03/22/2025. Creatinine is at the plateau, urine output is great, electrolytes are fine. Likely able to go home from renal standpoint today/tomorrow
--- NOTE | 2025-03-22 13:25 | CASEMGMT ---
Social Work SW spoke with the the and she wants [facility] when the patient discharges. Hospice was stopped when the patient was admitted to the hospital. SW faxed a new hospice referral to [facility]. The reported she can transport the patient at [place]. ANNIE Paris
--- NOTE | 2025-03-22 14:25 | CASEMGMT ---
Social Work SW received a call from Laura [phone] with [facility]. She reported the patient was discharged from services and all the equipment has been removed from the home. Laura reported he would need a new assessment before DC. She reported that will not happen tomorrow and they may not be able to do it today. OZ informed her SW will let the physician know. ANNIE Paris
--- NOTE | 2025-03-22 14:40 | CASEMGMT ---
Social Work SW called Laura with [facility] and requested a meeting with the patient and his for Thursday. Laura reported they can do that. OZ asked Laura call OZ back with the time of the meeting. ANNIE Paris
--- NOTE | 2025-03-22 17:23 | PN.HOSP_ITS ---
Subjective Subjective Patient was seen and examined today, talked with the patient and his who was in the room at the time my examination. The plan is for the patient to be discharged home this Thursday with another hospice provider, I talked with pulmonary medicine about his care briefly today and pulmonary medicine did not feel the patient needed continued antibiotic treatment at this time. Patient is on 2 L of oxygen via nasal cannula at rest presently, he uses 3 L at home at rest. Objective Data Objective Data Vital Signs: Vital Signs Temp Pulse Resp BP Pulse Ox O2 Del Method O2 Flow Rate 97.6 F L 66 18 132/61 H 93 Nasal Cannula 2 03/22/25 14:35 03/22/25 14:35 03/22/25 14:35 03/22/25 14:35 03/22/25 14:35 03/22/25 14:35 03/22/25 14:35 FiO2 30 03/21/25 23:25 Oxygen Flow Rate (L/min) 2 Oxygen Delivery Method Nasal Cannula Weight: 117.7 kg Body Mass Index (BMI) 41.8 Intake & Output: Intake and Output for Last 24 Hours 03/20/25 03/21/25 03/22/25 23:59 23:59 23:59 Intake Total 844 / 844 2130 / 2130 200 / 200 Output Total 1100 / 1100 2800 / 3375 1075 / 1075 Balance -256 / -256 -670 / -1245 -875 / -875 Lab / Micro Data 03/21/25 06:25 03/22/25 10:56 Labs: Laboratory Results - last 24 hr 03/21/25 16:59: POC Glucose 253 H 03/21/25 22:30: POC Glucose 309 H 03/22/25 06:33: POC Glucose 252 H 03/22/25 10:56: Sodium 134 L, Potassium 4.7, Chloride 100, Carbon Dioxide 18.8 L , Anion Gap 16, BUN 65 H, Creatinine 4.33 H, Estim Creat Clear Calc 19.71 L, Est GFR (MDRD) Non-Af 14 L, BUN/Creatinine Ratio 14.9, Glucose 362 H, Calcium 8.7 03/22/25 11:37: POC Glucose 314 H Micro: Microbiology 03/16/25 22:05 Blood Culture (Wb) - Right Hand Blood Culture - Final No growth in 5 days. 03/16/25 22:09 Blood Culture (Wb) - Right Forearm Blood Culture - Final No growth in 5 days. 03/16/25 20:22 Sputum, Tracheal Aspirate Gram Stain - Final 03/16/25 20:22 Sputum, Tracheal Aspirate Respiratory Culture - Final 03/17/25 03:50 Mucosa - Nasopharyngeal Respiratory Panel (PCR) - Final Rhinovirus 03/17/25 03:50 Nasal Secretion MRSA (PCR) - Final Meth. resistant Staph. aureus 03/16/25 20:25 Mucosa - Nasopharyngeal SARS-CoV-2, Influenza & RSV (PCR) - Final Patient's Goals Of Care - F/U Goals Reviewed Goals of care reviewed with patient: NA-No significant change in clinical Status /major procedure scheduled Physical Exam Narrative alert, no apparent distress and well nourished General Appearance: cooperative, well kempt and well developed Orientation / Consciousness: awake, oriented to person and oriented to place HEENT normocephalic, head/scalp atraumatic and moist oral mucous membranes Eyes PERRL, EOMs intact bilaterally and conjunctivae normal Neck supple, no JVD, thyroid normal and no carotid bruits General: trachea midline Resp normal respiratory effort, no retractions, no use of accessory muscles and clear to auscultation bilaterally Auscultation: Negative for rales, rhonchi or wheezes Cardio regular rate, regular rhythm, S1 normal heart sound, S2 normal heart sound, no murmurs, no rub and no gallops GI normal to inspection, nondistended, normoactive bowel sounds, soft to palpation, non-tender and non-distended Extremity Extremity Narrative: Patient has generalized atrophy of his lower extremities Skin no rashes or lesions noted General Skin Exam: no breakdown Neuro CN's II-XII intact bilaterally Neuro Narrative: Patient is paraplegic Sensorium / Orientation: awake, alert, oriented to person and oriented to place Speech: speech normal Psych affect normal Assessment & Plan Assessment/Plan (1) COPD (chronic obstructive pulmonary disease): (2) Right middle lobe pulmonary infiltrate: PLAN: Plan Acute on chronic combined respiratory failure secondary to pneumonia and COPD exacerbation due to rhinovirus infection-patient is currently on nasal cannula oxygen, continue to monitor pulse ox, antibiotics were stopped, patient was placed on prednisone 20 mg daily, bronchodilators will continue #2 recent pulmonary embolism present on admission-continue Eliquis #3 acute kidney injury-nephrology is following to assist with medical management, it does not appear the patient will need dialysis at this time, patient's creatinine however was 4.33 today which is remaining constant, BMP will be rechecked tomorrow #4 type 2 diabetes-blood sugars will be monitored, sliding scale insulin will be administered as indicated #5 paraplegia-complicates care, management, recovery, and prognosis, PT and OT will continue to see the patient #6 acute on chronic debility-secondary to multiple medical problems and respiratory failure, patient does not qualify for skilled care at nursing facility, he will go home with hospice this Thursday #7 mild anemia-unknown whether it is chronic or acute-hemoglobin yesterday was 11 #8 hypothyroidism-patient is on Synthroid presently #9 lactic acidosis secondary to acute combined respiratory failure-no treatment necessary at this time #10 current use of anticoagulant secondary to recent pulmonary embolism- complicates care, management, recovery, and prognosis #11 BPH without obstruction-patient is on Flomax #12 rhinovirus infection-supportive care with bronchodilators Total clinical time spent by myself addressing the patient's medical issues, reviewing all of his data, and collaborating with patient's care team: 35 minutes Charges/Coding Visit Charges Inpatient E&M: 80928 Subs Hosp L2
[2025-03-23 03:29] VITALS: BMI 40.1
[2025-03-23 04:01] VITALS: BP 171/69; PULSE 57; RESP 18; TEMP 36.5; O2SAT 98
[2025-03-23 07:13] LABS: Anion Gap 14 (7-18); BUN 70 mg/dL (4-19); BUN/Creat Ratio 15.8 RATIO (10-20); Calcium,Total 8.7 mg/dL (7.6-11.0); Carbon Dioxide 21.4 mmol/L (20.0-29.0); Chloride 103 mmol/L (96-106); Estimated Creatinine Clearance 18.93 ml/min (50-250); Glucose 184 mg/dL (70-99); Potassium 4.4 mmol/L (3.5-5.1)
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
[2025-03-23 07:45] VITALS: PULSE 57; RESP 18; O2SAT 95
[2025-03-23 09:01] VITALS: BP 154/81; PULSE 67; RESP 18; TEMP 36.5; O2SAT 97
[2025-03-23] MEDS: APIXABAN 5 MG TABLET PO ×2 (09:03→20:28)
[2025-03-23] MEDS: Mupirocin Ointment 22gm Tube 1 APPLIC NASAL ×2 (09:03→20:29)
[2025-03-23 13:44] VITALS: PULSE 67; RESP 20
[2025-03-23 15:34] VITALS: BP 148/77; PULSE 73; RESP 18; TEMP 36.4; O2SAT 97
[2025-03-23 20:27] VITALS: BP 144/85; PULSE 77; RESP 20; TEMP 36.2; O2SAT 94
[2025-03-24] VITALS (10 sets, daily range): BP systolic 141–159; BP diastolic 75–88; PULSE 58–84; RESP 18–20; TEMP 36–36.8; O2SAT 94–98; BMI 39.8
[2025-03-24] MEDS: 0.9% Saline Lock 10 ML Syringe IV ×3 (06:13→18:42)
[2025-03-24 07:08] LABS: Hematocrit 35.5 % (40-54); Hemoglobin 11.1 g/dL (13.0-16.5); Mean Corp Hgb Conc 31.3 g/dL (32-36); Mean Corpuscular Volume 84.9 fL (80-94); Mean Platelet Vol. 9.8 fl (6.2-12.0); Platelet Count 350 K/mm3 (150-450); RBC Distribution Width CV 17.2 % (11.6-14.6); RBC Distribution Width SD 53.1 fl (35.1-43.9); Red Blood Count 4.18 M/mm3 (4.6-6.2); White Blood Count 13.1 K/mm3 (4.4-11.0)
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
[2025-03-24 08:00] LABS: Anion Gap 11 (7-18); BUN 79 mg/dL (4-19); BUN/Creat Ratio 17.1 RATIO (10-20); Calcium,Total 8.6 mg/dL (7.6-11.0); Carbon Dioxide 24.8 mmol/L (20.0-29.0); Chloride 106 mmol/L (96-106); Estimated Creatinine Clearance 18.05 ml/min (50-250); Glucose 150 mg/dL (70-99); Potassium 4.9 mmol/L (3.5-5.1)
[2025-03-24] MEDS: APIXABAN 5 MG TABLET PO ×2 (09:12→21:49)
[2025-03-24] MEDS: Mupirocin Ointment 22gm Tube 1 APPLIC NASAL ×2 (09:13→21:28)
--- NOTE | 2025-03-24 11:15 | CASEMGMT ---
Social Work SW received a phone call from the . The reported [facility] is not accepting the patient back, The reported she does not want hospice but wants [facility] at [place]. SW will make the referral to [facility]. ANNIE Paris
--- NOTE | 2025-03-24 11:49 | CASEMGMT ---
Discharge Planning A list of SNF providers including quality and resource use data and consistent with the patient's preferred geographic region, medical needs, and insurance network was created in [facility] Guide. This list was provided to the SW. Fiorella Rice Discharge Planning Asst.
[2025-03-24] MEDS: 0.9% Normal Saline (1000mL) 1,000 ML 150 ML IV (11:52)
--- NOTE | 2025-03-24 12:08 | CASEMGMT ---
Social Work SW called the and informed her that [facility] cannot accept the patient due to his needs. A list of?HH providers including quality and resource use data and consistent with the patient's preferred geographic region, medical needs, and insurance network was created in [facility] Guide.? This list was emailed to the to review for choices. ANNIE Esteves
--- NOTE | 2025-03-24 13:01 | PCM.PN.REN ---
Subjective Subjective Follow-up on acute kidney injury. Feels good, hoping going home today, outpatient dialysis arranged, first treatment will be tomorrow. He is off oxygen, feels good, eating fine Objective Data Objective Data Vital Signs: Vital Signs Temp Pulse Resp BP Pulse Ox O2 Del Method O2 Flow Rate 97.7 F L 77 18 154/88 H 98 Nasal Cannula 4 03/24/25 09:00 03/24/25 09:22 03/24/25 09:22 03/24/25 09:00 03/24/25 09:22 03/24/25 09:22 03/24/25 09:22 FiO2 30 03/21/25 23:25 Oxygen Flow Rate (L/min) 4 Oxygen Delivery Method Nasal Cannula Weight: 111.9 kg Body Mass Index (BMI) 39.8 Intake & Output: Intake and Output for Last 24 Hours 03/22/25 03/23/25 03/24/25 23:59 23:59 23:59 Intake Total 200 / 200 1440 / 1440 400 / 400 Output Total 2475 / 3275 2625 / 2625 1470 / 1470 Balance -2275 / -3075 -1185 / -1185 -1070 / -1070 Lab / Micro Data Attestation: I reviewed the patient's lab results. 03/24/25 06:23 03/24/25 06:23 Labs: Laboratory Results - last 24 hr 03/23/25 16:55: POC Glucose 289 H 03/23/25 20:26: POC Glucose 320 H 03/24/25 06:15: POC Glucose 144 H 03/24/25 06:23: WBC 13.1 H, RBC 4.18 L, Hgb 11.1 L, Hct 35.5 L, MCV 84.9, MCH 26.6 L, MCHC 31.3 L, RDW Std Deviation 53.1 H, RDW Coeff of Josue 17.2 H, Plt Count 350, MPV 9.8, Sodium 141, Potassium 4.9, Chloride 106, Carbon Dioxide 24.8, Anion Gap 11, BUN 79 H, Creatinine 4.60 H, Estim Creat Clear Calc 18.05 L, Est GFR (MDRD) Non-Af 13 L, BUN/Creatinine Ratio 17.1, Glucose 150 H, Calcium 8.6 03/24/25 10:12: Ur Random Sodium 73 03/24/25 11:49: POC Glucose 181 H Micro: Microbiology 03/16/25 22:05 Blood Culture (Wb) - Right Hand Blood Culture - Final No growth in 5 days. 03/16/25 22:09 Blood Culture (Wb) - Right Forearm Blood Culture - Final No growth in 5 days. 03/16/25 20:22 Sputum, Tracheal Aspirate Gram Stain - Final 03/16/25 20:22 Sputum, Tracheal Aspirate Respiratory Culture - Final 03/17/25 03:50 Mucosa - Nasopharyngeal Respiratory Panel (PCR) - Final Rhinovirus 03/17/25 03:50 Nasal Secretion MRSA (PCR) - Final Meth. resistant Staph. aureus 03/16/25 20:25 Mucosa - Nasopharyngeal SARS-CoV-2, Influenza & RSV (PCR) - Final Physical Exam Const alert, oriented x3, no apparent distress and average body habitus General Appearance: well developed Orientation / Consciousness: oriented to person, oriented to place and oriented to time HEENT normocephalic Head and Scalp: atraumatic Neck no lymphadenopathy Resp no use of accessory muscles and clear to auscultation bilaterally Cardio regular rate GI non-tender Auscultation: normoactive bowel sounds Palpation: soft Skin no rashes or lesions noted Neuro Sensorium / Orientation: awake and alert Psych cooperative Assessment & Plan Assessment/Plan (1) JOSELITO (acute kidney injury): PLAN: Currently hemodialysis dependent, being discharged with outpatient dialysis as an acute kidney injury. First treatment tomorrow. Will be followed by Dr. Elizabeth
--- NOTE | 2025-03-24 13:08 | CASEMGMT ---
Social Work The called the and requested a HH referral be sent to [facility]. A referral will be sent. ANNIE Paris
--- NOTE | 2025-03-24 13:24 | PCM.PN.REN ---
Subjective Subjective Follow-up acute kidney injury secondary to ischemic ATN. Creatinine continues to plateau, urine output seems to be somewhat excessive. Objective Data Objective Data Vital Signs: Vital Signs Temp Pulse Resp BP Pulse Ox O2 Del Method O2 Flow Rate 97.7 F L 77 18 154/88 H 98 Nasal Cannula 4 03/24/25 09:00 03/24/25 09:22 03/24/25 09:22 03/24/25 09:00 03/24/25 09:22 03/24/25 09:22 03/24/25 09:22 FiO2 30 03/21/25 23:25 Oxygen Flow Rate (L/min) 4 Oxygen Delivery Method Nasal Cannula Weight: 111.9 kg Body Mass Index (BMI) 39.8 Intake & Output: Intake and Output for Last 24 Hours 03/22/25 03/23/25 03/24/25 23:59 23:59 23:59 Intake Total 200 / 200 1440 / 1440 400 / 400 Output Total 2475 / 3275 2625 / 2625 1470 / 1470 Balance -2275 / -3075 -1185 / -1185 -1070 / -1070 Lab / Micro Data Attestation: I reviewed the patient's lab results. 03/24/25 06:23 03/24/25 06:23 Labs: Laboratory Results - last 24 hr 03/23/25 16:55: POC Glucose 289 H 03/23/25 20:26: POC Glucose 320 H 03/24/25 06:15: POC Glucose 144 H 03/24/25 06:23: WBC 13.1 H, RBC 4.18 L, Hgb 11.1 L, Hct 35.5 L, MCV 84.9, MCH 26.6 L, MCHC 31.3 L, RDW Std Deviation 53.1 H, RDW Coeff of Josue 17.2 H, Plt Count 350, MPV 9.8, Sodium 141, Potassium 4.9, Chloride 106, Carbon Dioxide 24.8, Anion Gap 11, BUN 79 H, Creatinine 4.60 H, Estim Creat Clear Calc 18.05 L, Est GFR (MDRD) Non-Af 13 L, BUN/Creatinine Ratio 17.1, Glucose 150 H, Calcium 8.6 03/24/25 10:12: Ur Random Sodium 73 03/24/25 11:49: POC Glucose 181 H Micro: Microbiology 03/16/25 22:05 Blood Culture (Wb) - Right Hand Blood Culture - Final No growth in 5 days. 03/16/25 22:09 Blood Culture (Wb) - Right Forearm Blood Culture - Final No growth in 5 days. 03/16/25 20:22 Sputum, Tracheal Aspirate Gram Stain - Final 03/16/25 20:22 Sputum, Tracheal Aspirate Respiratory Culture - Final 03/17/25 03:50 Mucosa - Nasopharyngeal Respiratory Panel (PCR) - Final Rhinovirus 03/17/25 03:50 Nasal Secretion MRSA (PCR) - Final Meth. resistant Staph. aureus 03/16/25 20:25 Mucosa - Nasopharyngeal SARS-CoV-2, Influenza & RSV (PCR) - Final Physical Exam Const alert, oriented x3 and no apparent distress General Appearance: well developed Nutritional Appearance: obese HEENT Head and Scalp: atraumatic Neck no lymphadenopathy Resp no use of accessory muscles GI non-tender Auscultation: normoactive bowel sounds Palpation: soft Neuro Sensorium / Orientation: awake Psych cooperative Assessment & Plan Assessment/Plan (1) ATN (acute tubular necrosis): (2) JOSELITO (acute kidney injury): PLAN: No diuretics, No dialysis Avoid hypotension No nephrotoxins
--- NOTE | 2025-03-24 14:12 | CASEMGMT ---
Addendum entered by Fiorella Rice 03/24/25 15:22: CHN accepted with [facility] Mon/ (dependent on dc date). SW updated. Original Note: Discharge Planning HH referral sent via [facility]Port to N. Fiorella Rice DC Planning Asst
--- NOTE | 2025-03-24 14:28 | CASEMGMT ---
Social Work Laura from [facility] called OZ and she reported still wants to seek treatment from outside of hospice. She reported they can accept him back. SW informed her that the is wanting HH and not hospice. ANNIE Paris
--- NOTE | 2025-03-24 15:46 | CASEMGMT ---
Social Work CHN HH referral sent and patient accepted. SOC Thursday or Thursday depending on ANNIE Becker
[2025-03-24 16:49] LABS: Allen Test Positive; Base Excess -2 mmol/L (-2 to +2); FI02 4.0; PO2 72 mmHG (75-100); SITE L Radial; SO2 91 % (94-98)
[2025-03-24 19:58] LABS: Allen Test Positive; Base Excess -1 mmol/L (-2 to +2); FI02 30.0; PEEP 10; PO2 78 mmHG (75-100); SITE L Radial; SO2 94 % (94-98)
[2025-03-25] VITALS (10 sets, daily range): BP systolic 155–171; BP diastolic 68–80; PULSE 60–94; RESP 17–22; TEMP 36.2–36.6; O2SAT 92–98; BMI 39.1
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
[2025-03-25 09:08] LABS: Hematocrit 33.9 % (40-54); Hemoglobin 10.7 g/dL (13.0-16.5); Mean Corp Hgb Conc 31.6 g/dL (32-36); Mean Corpuscular Volume 83.7 fL (80-94); Mean Platelet Vol. 9.7 fl (6.2-12.0); Platelet Count 368 K/mm3 (150-450); RBC Distribution Width CV 17.2 % (11.6-14.6); RBC Distribution Width SD 52.3 fl (35.1-43.9); Red Blood Count 4.05 M/mm3 (4.6-6.2); White Blood Count 12.2 K/mm3 (4.4-11.0)
[2025-03-25 10:01] LABS: Anion Gap 11 (7-18); BUN 80 mg/dL (4-19); BUN/Creat Ratio 18.0 RATIO (10-20); Calcium,Total 8.8 mg/dL (7.6-11.0); Carbon Dioxide 24.2 mmol/L (20.0-29.0); Chloride 110 mmol/L (96-106); Estimated Creatinine Clearance 18.40 ml/min (50-250); Glucose 161 mg/dL (70-99); Potassium 4.5 mmol/L (3.5-5.1)
[2025-03-25] MEDS: Mupirocin Ointment 22gm Tube 1 APPLIC NASAL ×2 (10:25→21:02)
[2025-03-25] MEDS: APIXABAN 5 MG TABLET PO ×2 (10:30→21:08)
[2025-03-25] MEDS: 0.9% Saline Lock 10 ML Syringe IV ×2 (10:32→11:54)
[2025-03-25] MEDS: Lactated Ringers 1,000 ML 100 ML IV ×2 (11:51→21:39)
--- NOTE | 2025-03-25 12:44 | CASEMGMT ---
Social Work Physician inquired if pt was on bipapp or cpap at home. SW did not find this documented that pt was on either of these prior to this hospital stay. SW spoke w/ in room and pt. She states no, pt was not on either one. Pt had O2, but was through hospice and pt going home w/[facility], so this will be picked up by hospice. If pt does need O2 at d/c, is okay with any company, does not have a preference, so list not provided. SW spoke w/ about using [employer], she is agreeable to this. asked about pt doing a sleep study. She states he was doing something at home with a thing(likely a pulse ox) on his finger, but he took it off and threw it across the room. does not think he can do the sleep study at home. It would be difficult to get pt for an outpt study as well. SW explained will reach out to physician to inquire if any testing can be done here. SW will continue to follow. STEFFI Cline
[2025-03-26] VITALS (8 sets, daily range): BP systolic 148–165; BP diastolic 67–104; PULSE 51–75; RESP 16–20; TEMP 36.4–36.6; O2SAT 95–99; BMI 38.8
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
[2025-03-26] MEDS: Lactated Ringers 1,000 ML 100 ML IV ×2 (08:08→21:48)
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
[2025-03-26] MEDS: APIXABAN 5 MG TABLET PO ×2 (09:06→20:46)
[2025-03-26] MEDS: Mupirocin Ointment 22gm Tube 1 APPLIC NASAL ×2 (09:10→20:47)
[2025-03-26 10:39] LABS: Hematocrit 33.3 % (40-54); Hemoglobin 11.2 g/dL (13.0-16.5); Mean Corp Hgb Conc 33.6 g/dL (32-36); Mean Corpuscular Volume 81.8 fL (80-94); Mean Platelet Vol. 9.7 fl (6.2-12.0); Platelet Count 351 K/mm3 (150-450); RBC Distribution Width CV 17.3 % (11.6-14.6); RBC Distribution Width SD 51.0 fl (35.1-43.9); Red Blood Count 4.07 M/mm3 (4.6-6.2); White Blood Count 13.0 K/mm3 (4.4-11.0)
[2025-03-26 11:02] LABS: Anion Gap 11 (7-18); BUN 75 mg/dL (4-19); BUN/Creat Ratio 19.0 RATIO (10-20); Calcium,Total 8.6 mg/dL (7.6-11.0); Carbon Dioxide 23.9 mmol/L (20.0-29.0); Chloride 108 mmol/L (96-106); Estimated Creatinine Clearance 20.84 ml/min (50-250); Glucose 179 mg/dL (70-99); Potassium 4.3 mmol/L (3.5-5.1)
--- NOTE | 2025-03-26 20:40 | NURSING ---
Attempted PIV x2 at this time; unsuccessful. Contacted charhouse worker to attempt.
[2025-03-27] VITALS (9 sets, daily range): BP systolic 130–166; BP diastolic 70–91; PULSE 63–82; RESP 18–20; TEMP 36.6–37.2; O2SAT 94–99; BMI 38.6; BMI 38.4
[2025-03-27 06:54] LABS: Hematocrit 31.5 % (40-54); Hemoglobin 10.2 g/dL (13.0-16.5); Mean Corp Hgb Conc 32.4 g/dL (32-36); Mean Corpuscular Volume 83.8 fL (80-94); Mean Platelet Vol. 10.0 fl (6.2-12.0); Platelet Count 369 K/mm3 (150-450); RBC Distribution Width CV 17.2 % (11.6-14.6); RBC Distribution Width SD 52.7 fl (35.1-43.9); Red Blood Count 3.76 M/mm3 (4.6-6.2); White Blood Count 12.1 K/mm3 (4.4-11.0)
[2025-03-27 07:00] LABS: Anion Gap 9 (7-18); BUN 74 mg/dL (4-19); BUN/Creat Ratio 19.5 RATIO (10-20); Calcium,Total 8.7 mg/dL (7.6-11.0); Carbon Dioxide 26.4 mmol/L (20.0-29.0); Chloride 105 mmol/L (96-106); Estimated Creatinine Clearance 21.39 ml/min (50-250); Glucose 151 mg/dL (70-99); Potassium 4.3 mmol/L (3.5-5.1)
--- NOTE | 2025-03-27 07:00 | MRI_ITS ---
PROCEDURE: BRAIN WITHOUT CONTRAST 03/27/2025 REASON FOR EXAM: VISUAL CHANGES. History of subdural. TECHNIQUE: Procedure Code: MRIBR Modality: MR Procedure: BRAIN WITHOUT CONTRAST Multiplanar and multisequence images were obtained. COMPARISON: Brain/Head without Contrast, 02/22/2025 FINDINGS: BRAIN: No restricted diffusion to indicate acute infarction. Right temporal lobe resection cavity/encephalomalacia. No intracranial mass or hemorrhage. No midline shift or extra-axial fluid collection. No sulcal effacement. Patchy high T2/FLAIR signal intensity in the deep white matter, likely microvascular ischemic changes. No cerebellar tonsillar ectopia. The central arterial and venous flow voids are patent. VENTRICLES: No hydrocephalus. ORBITS: The orbits are normal. SINUSES AND MASTOIDS: Mild maxillary sinus mucosal thickening bilaterally. Prior right-sided mastoidectomy. Persistent left mastoid effusion. BONES: Prior right-sided craniotomy. No focal osseous lesion. MRI/Brain without Contrast IMPRESSION: No acute intracranial abnormality. Reading Location: [id number]
[2025-03-27] MEDS: Lactated Ringers 1,000 ML 100 ML IV ×2 (08:01→20:00)
[2025-03-27] MEDS: APIXABAN 5 MG TABLET PO ×2 (09:21→23:24)
[2025-03-27] MEDS: Mupirocin Ointment 22gm Tube 1 APPLIC NASAL ×2 (09:22→23:20)
[2025-03-27] MEDS: 0.9% Saline Lock 10 ML Syringe IV (09:38)
--- NOTE | 2025-03-27 10:04 | CASEMGMT ---
Hospitalist discussed NIV with RN SAVANAH, provided hospitalist with qualifications and documentation requirements for NIV.
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
--- NOTE | 2025-03-27 12:59 | WOUNDNOTE ---
wound photo: right ischium
--- NOTE | 2025-03-27 13:24 | CASEMGMT ---
Social Work SW spoke with the patient and informed him that [facility] accepted him for when he discharges. SW informed him that we are working on getting oxygen set for him as well at [place]. ANNIE [place]
--- NOTE | 2025-03-27 14:05 | CASEMGMT ---
Social Work SW called the and informed her that the patient will DC tomorrow. SW asked is it was okay to use [employer] for oxygen set up at [place] and the said yes. [facility] informed the that [facility] has accepted the patient for services at [place]. ANNIE [place]
--- NOTE | 2025-03-27 14:34 | CASEMGMT ---
RN CM into pt room, provided verbal list of O2 providers. Pt agreeable to [facility].
--- NOTE | 2025-03-27 18:03 | PN.HOSP_ITS ---
Reason for Visit Chief Complaint: Shortness of breath Subjective Subjective Patient was seen and examined today, MRI of the brain did not show any evidence of stroke. Oxygen will need to be set up at home for the patient, he will be reevaluated tomorrow for discharge home. I discussed his care with pulmonary medicine, they stated that they were unwilling to set up noninvasive ventilation at home unless the patient was a patient in their office which she is not, they recommended the patient follow-up with his PCP as an outpatient to have this arranged Objective Data Objective Data Vital Signs: Vital Signs Temp Pulse Resp BP Pulse Ox O2 Del Method O2 Flow Rate 97.9 F 78 18 149/75 H 96 Nasal Cannula 3 03/27/25 15:15 03/27/25 15:15 03/27/25 15:15 03/27/25 15:15 03/27/25 15:15 03/27/25 15:15 03/27/25 15:15 FiO2 30 03/27/25 02:30 Oxygen Flow Rate (L/min) 3 Oxygen Delivery Method Nasal Cannula Weight: 108 kg Body Mass Index (BMI) 38.4 Intake & Output: Intake and Output for Last 24 Hours 03/25/25 03/26/25 03/27/25 23:59 23:59 23:59 Intake Total 1130 / 1130 2680 / 2680 1716.67 / 1716.67 Output Total 2200 / 3175 4450 / 4450 2400 / 2400 Balance -1070 / -2045 -1770 / -1770 -683.33 / -683.33 Lab / Micro Data 03/27/25 06:00 03/27/25 06:00 Labs: Laboratory Results - last 24 hr 03/26/25 20:37: POC Glucose 177 H 03/27/25 06:00: WBC 12.1 H, RBC 3.76 L, Hgb 10.2 L, Hct 31.5 L, MCV 83.8, MCH 27.1, MCHC 32.4, RDW Std Deviation 52.7 H, RDW Coeff of Josue 17.2 H, Plt Count 369, MPV 10.0, Sodium 140, Potassium 4.3, Chloride 105, Carbon Dioxide 26.4, Anion Gap 9, BUN 74 H, Creatinine 3.81 H, Estim Creat Clear Calc 21.39 L, Est GFR (MDRD) Non-Af 16 L, BUN/Creatinine Ratio 19.5, Glucose 151 H, Calcium 8.7 03/27/25 06:46: POC Glucose 149 H 03/27/25 11:26: POC Glucose 176 H 03/27/25 16:46: POC Glucose 257 H Micro: Microbiology 03/16/25 22:05 Blood Culture (Wb) - Right Hand Blood Culture - Final No growth in 5 days. 03/16/25 22:09 Blood Culture (Wb) - Right Forearm Blood Culture - Final No growth in 5 days. 03/16/25 20:22 Sputum, Tracheal Aspirate Gram Stain - Final 03/16/25 20:22 Sputum, Tracheal Aspirate Respiratory Culture - Final 03/17/25 03:50 Mucosa - Nasopharyngeal Respiratory Panel (PCR) - Final Rhinovirus 03/17/25 03:50 Nasal Secretion MRSA (PCR) - Final Meth. resistant Staph. aureus 03/16/25 20:25 Mucosa - Nasopharyngeal SARS-CoV-2, Influenza & RSV (PCR) - Final Radiography Diagnostic Testing: Radiology Impression Brain MRI 03/27/25 07:00 IMPRESSION: No acute intracranial abnormality. Reading Location: [facility] Patient's Goals Of Care - F/U Goals Reviewed Goals of care reviewed with patient: NA-No significant change in clinical Status /major procedure scheduled Physical Exam Narrative alert, no apparent distress and well nourished General Appearance: cooperative, well kempt and well developed Orientation / Consciousness: awake, oriented to person and oriented to place HEENT normocephalic, head/scalp atraumatic and moist oral mucous membranes Eyes PERRL, EOMs intact bilaterally and conjunctivae normal Neck supple, no JVD, thyroid normal and no carotid bruits General: trachea midline Resp normal respiratory effort, no retractions, no use of accessory muscles and clear to auscultation bilaterally Auscultation: Negative for rales, rhonchi or wheezes Cardio regular rate, regular rhythm, S1 normal heart sound, S2 normal heart sound, no murmurs, no rub and no gallops GI normal to inspection, nondistended, normoactive bowel sounds, soft to palpation, non-tender and non-distended Extremity Extremity Narrative: Patient has generalized atrophy of his lower extremities Skin no rashes or lesions noted General Skin Exam: no breakdown Neuro CN's II-XII intact bilaterally Neuro Narrative: Patient is paraplegic Sensorium / Orientation: awake, alert, oriented to person and oriented to place Speech: speech normal Psych affect normal Assessment & Plan Assessment/Plan (1) Rhinovirus infection: PLAN: Plan #1 Acute on chronic combined respiratory failure secondary to pneumonia and COPD exacerbation due to rhinovirus infection-patient is currently on nasal cannula oxygen, continue to monitor pulse ox, continue present antibiotics and IV corticosteroids and bronchodilators, patient's oxygen setting previously had been 4 L continuous #2 recent pulmonary embolism present on admission-continue Eliquis #3 acute kidney injury-nephrology is following to assist with medical management, it does not appear the patient will need dialysis at this time, patient's creatinine however was 3.81 today which is trending downward #4 type 2 diabetes-blood sugars will be monitored, sliding scale insulin will be administered as indicated #5 paraplegia-complicates care, management, recovery, and prognosis, PT and OT will continue to see the patient #6 acute on chronic debility-secondary to multiple medical problems and respiratory failure, wants the patient to go to a residential facility for rehab services, case management and social scientist will work toward this #7 mild anemia-unknown whether it is chronic or acute-hemoglobin today was 10.9, he does not need to be transfused #8 hypothyroidism-patient is on Synthroid presently #9 lactic acidosis secondary to acute combined respiratory failure-no treatment necessary at this time #10 current use of anticoagulant secondary to recent pulmonary embolism- complicates care, management, recovery, and prognosis #11 BPH without obstruction-patient is on Flomax #12 rhinovirus infection-resolved Total clinical time spent by myself addressing the patient's medical issues, reviewing all of his data, and collaborating with the patient's care team: 35- minute Charges/Coding Visit Charges Inpatient E&M: 28247 Subs Hosp L2
[2025-03-28] VITALS (9 sets, daily range): BP systolic 153–170; BP diastolic 72–83; PULSE 65–90; RESP 17–20; TEMP 36.3–36.7; O2SAT 88–99; BMI 39.3
[2025-03-28] MEDS: Lactated Ringers 1,000 ML 100 ML IV ×2 (06:27→16:58)
[2025-03-28] MEDS: APIXABAN 5 MG TABLET PO ×2 (09:34→21:14)
--- NOTE | 2025-03-28 10:33 | RAD_ITS ---
PROCEDURE: CHEST 1 VIEW (PORTABLE) 03/28/2025 REASON FOR EXAM: DYSPNEA TECHNIQUE: Frontal view of the chest. COMPARISON: 03/18/2025. FINDINGS: Persistent hazy opacities within the lower lungs bilaterally are concerning for infiltrates. A small left pleural effusion persists. The cardiac silhouette is difficult to evaluate due to silhouetting opacities, however it is not significantly changed from the previous study. Atherosclerotic calcifications are seen within the thoracic aorta. A 2 level anterior fusion of the lower cervical spine is again noted. No acute osseous abnormality. RAD/Chest 1 View (Portable) IMPRESSION: As above. Reading Location: [id number]
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
--- NOTE | 2025-03-28 11:54 | CASEMGMT ---
Social Work SW called the regarding DC. SW spoke with the about having hospice or HH at [place]. The previously stated she did not want hospice but now would like a hospice referral to [facility]. SW emailed a hospice referral to [facility]. ANNIE Paris
--- NOTE | 2025-03-28 16:33 | CASEMGMT ---
Social Work SW received a call from [facility] and they are meeting with the family cat at 530pm to 600pm at the hospital. ANNIE Paris
--- NOTE | 2025-03-28 20:22 | PN.HOSP_ITS ---
Reason for Visit Chief Complaint: Shortness of breath Subjective Subjective Patient was seen and examined today, wants a hospice consultation and was supposed to meet with hospice this afternoon. I understand from nursing that the plan is for the patient to go home with hospice care tomorrow. I performed a chest x-ray today, it showed persistent hazy opacities in the lower lungs bilaterally with a small left effusion. Patient is on 2 L of oxygen via nasal cannula presently. As far as the patient's DEBO's are concerned, it appears the patient is negative for this hospitalization. Objective Data Objective Data Vital Signs: Vital Signs Temp Pulse Resp BP Pulse Ox O2 Del Method O2 Flow Rate 98.1 F 89 17 153/76 H 94 Nasal Cannula 2 03/28/25 15:32 03/28/25 15:32 03/28/25 15:32 03/28/25 15:32 03/28/25 15:32 03/28/25 17:03 03/28/25 17:03 FiO2 30 03/28/25 03:30 Oxygen Flow Rate (L/min) 2 Oxygen Delivery Method Nasal Cannula Weight: 110.6 kg Body Mass Index (BMI) 39.3 Intake & Output: Intake and Output for Last 24 Hours 03/26/25 03/27/25 03/28/25 23:59 23:59 23:59 Intake Total 2680 / 2680 3000.00 / 3700.00 3180 / 3180 Output Total 4450 / 4450 3800 / 3800 2950 / 2950 Balance -1770 / -1770 -800.00 / -100.00 230 / 230 Lab / Micro Data 03/27/25 06:00 03/27/25 06:00 Labs: Laboratory Results - last 24 hr 03/27/25 23:17: POC Glucose 215 H 03/28/25 06:22: POC Glucose 152 H 03/28/25 11:42: POC Glucose 249 H 03/28/25 16:16: POC Glucose 304 H Micro: Microbiology 03/16/25 22:05 Blood Culture (Wb) - Right Hand Blood Culture - Final No growth in 5 days. 03/16/25 22:09 Blood Culture (Wb) - Right Forearm Blood Culture - Final No growth in 5 days. 03/16/25 20:22 Sputum, Tracheal Aspirate Gram Stain - Final 03/16/25 20:22 Sputum, Tracheal Aspirate Respiratory Culture - Final 03/17/25 03:50 Mucosa - Nasopharyngeal Respiratory Panel (PCR) - Final Rhinovirus 03/17/25 03:50 Nasal Secretion MRSA (PCR) - Final Meth. resistant Staph. aureus 03/16/25 20:25 Mucosa - Nasopharyngeal SARS-CoV-2, Influenza & RSV (PCR) - Final Radiography Diagnostic Testing: Radiology Impression Chest X-Ray 03/28/25 10:33 IMPRESSION: As above. Reading Location: [facility] Physical Exam Narrative alert, no apparent distress and well nourished General Appearance: cooperative, well kempt and well developed Orientation / Consciousness: awake, oriented to person and oriented to place HEENT normocephalic, head/scalp atraumatic and moist oral mucous membranes Eyes PERRL, EOMs intact bilaterally and conjunctivae normal Neck supple, no JVD, thyroid normal and no carotid bruits General: trachea midline Resp normal respiratory effort, no retractions, no use of accessory muscles and clear to auscultation bilaterally Auscultation: Negative for rales, rhonchi or wheezes Cardio regular rate, regular rhythm, S1 normal heart sound, S2 normal heart sound, no murmurs, no rub and no gallops GI normal to inspection, nondistended, normoactive bowel sounds, soft to palpation, non-tender and non-distended Extremity Extremity Narrative: Patient has generalized atrophy of his lower extremities Skin no rashes or lesions noted General Skin Exam: no breakdown Neuro CN's II-XII intact bilaterally Neuro Narrative: Patient is paraplegic Sensorium / Orientation: awake, alert, oriented to person and oriented to place Speech: speech normal Psych affect normal Assessment & Plan Assessment/Plan (1) JOSELITO (acute kidney injury): (2) Rhinovirus infection: PLAN: Plan #1 Acute on chronic combined respiratory failure secondary to pneumonia and COPD exacerbation due to rhinovirus infection-patient is currently on nasal cannula oxygen, continue to monitor pulse ox, continue present antibiotics and IV corticosteroids and bronchodilators, patient currently on 2 L of oxygen #2 recent pulmonary embolism present on admission-continue Eliquis #3 acute kidney injury-nephrology is following to assist with medical management, it does not appear the patient will need dialysis at this time #4 type 2 diabetes-blood sugars will be monitored, sliding scale insulin will be administered as indicated #5 paraplegia-complicates care, management, recovery, and prognosis, PT and OT will continue to see the patient #6 acute on chronic debility-secondary to multiple medical problems and respiratory failure, wants the patient to go to a long-term facility for rehab services, case management and licensed clinical social worker will work toward this #7 mild anemia-unknown whether it is chronic or acute-hemoglobin today was 10.9, he does not need to be transfused #8 hypothyroidism-patient is on Synthroid presently #9 lactic acidosis secondary to acute combined respiratory failure-no treatment necessary at this time #10 current use of anticoagulant secondary to recent pulmonary embolism- complicates care, management, recovery, and prognosis #11 BPH without obstruction-patient is on Flomax #12 rhinovirus infection-resolved Total clinical time spent by myself addressing the patient's medical issues, reviewing all of his data, and collaborating with the patient's care team: 35- minute Charges/Coding Visit Charges Inpatient E&M: 57430 Subs Hosp L2
[2025-03-29] VITALS (9 sets, daily range): BP systolic 148–165; BP diastolic 75–85; PULSE 73–96; RESP 16–24; TEMP 36.1–36.6; O2SAT 93–97; BMI 39.4
[2025-03-29] MEDS: Lactated Ringers 1,000 ML 100 ML IV (00:55)
--- NOTE | 2025-03-29 04:33 | CPS ---
pt refused bipap tonight. RN aware
--- NOTE | 2025-03-29 08:58 | CASEMGMT ---
Social Work SW called the and she reported she signed for [facility] but she does not know when the equipment is being delivered. ANNIE Paris
[2025-03-29] MEDS: APIXABAN 5 MG TABLET PO ×2 (09:19→22:40)
--- NOTE | 2025-03-29 10:40 | CASEMGMT ---
SW spoke with the on the phone. Admitting DX: hypercapnic resp. failure PCP: Dr. Zimmerman Specialists: Dr. Larios, urologist Preferred [facility]acy: [facility] Insurance: [facility] Prescription Benefit: yes Living Will/HPOA: yes, Abraham DELEONOK: , son Living Arrangements: Patient lives with in a single story home with ramp to enter the home. Patient's assists patient with ADLs. Transportation: DME/HHC: Patient has hospital bed, trapeze lm, and power wheelchair at home. Patient has been to [facility] in the past. assessment: Patient lives with in a single story home with ramp to enter the home. Patient's assists patient with ADLs. Disposition Plan: Patient to discharge home with hospice or HH. ANNIE Paris
--- NOTE | 2025-03-29 11:43 | CASEMGMT ---
Social Work SW spoke with the and patient. The reported if the patient needs the bi-pap then she will use hospice for this. The current plan to DC home with hospice. OZ explained the patient is medically ready for DC. OZ informed the that the hospice nurse is going to meet with her again and SW will notify them that she is at the hospital. ANNIE Paris
--- NOTE | 2025-03-29 13:15 | CASEMGMT ---
Social Work SW emailed the Cpap/Bipap settings and oxygen test results to [facility] to meet with the cat at 600/630pm. SW called [facility] and equipment can be delivered tomorrow. OZ explained that patient is ready for DC. ANNIE Paris
--- NOTE | 2025-03-29 18:15 | NURSING ---
Report called to inpatient hospice. Report given to Laurie PURCELL
--- NOTE | 2025-03-29 18:46 | DS.PCM_ITS ---
Providers Date of Admission: 03/16/25 Date of Discharge: 03/29/25 Primary Care Physician: Dr. Brian Zimmerman MD Consultations 03/17/25 00:17 Consult: Cupola Melter / Pulmonary Medicine Routine Consulting Provider: Intensivists/Pulmonary Med Reason for Consult: Hypercapnic respiratory failure EMERGENT Consult: No Notified: Yes Date Notified: 03/17/25 Time Notified: 01:53 Method of Notification: Text Consult: Onc/Wound/tank builder Routine Comment: 03/19/25 07:17 Consult: Nephrology Routine Consulting Provider: Jg Elizabeth Reason for Consult: JOSELITO EMERGENT Consult: No Notified: Yes Date Notified: 03/19/25 Time Notified: 07:17 Method of Notification: Text Reason For Visit: HYPERCAPNIC RESP FAILURE Diagnosis Discharge Diagnosis (1) JOSELITO (acute kidney injury): Status: Acute Code(s): N17.9 - Acute kidney failure, unspecified (2) Rhinovirus infection: Status: Acute Code(s): B34.8 - Other viral infections of unspecified site Plan #1 Acute on chronic combined respiratory failure secondary to pneumonia and COPD exacerbation due to rhinovirus infection-patient is currently on nasal cannula oxygen, continue to monitor pulse ox, continue present antibiotics and IV corticosteroids and bronchodilators, patient currently on 2 L of oxygen #2 recent pulmonary embolism present on admission-continue Eliquis #3 acute kidney injury-nephrology is following to assist with medical management, it does not appear the patient will need dialysis at this time #4 type 2 diabetes-blood sugars will be monitored, sliding scale insulin will be administered as indicated #5 paraplegia-complicates care, management, recovery, and prognosis, PT and OT will continue to see the patient #6 acute on chronic debility-secondary to multiple medical problems and respiratory failure, wants the patient to go to a retirement facility for rehab services, case management and school social worker will work toward this #7 mild anemia-unknown whether it is chronic or acute-hemoglobin today was 10.9, he does not need to be transfused #8 hypothyroidism-patient is on Synthroid presently #9 lactic acidosis secondary to acute combined respiratory failure-no treatment necessary at this time #10 current use of anticoagulant secondary to recent pulmonary embolism- complicates care, management, recovery, and prognosis #11 BPH without obstruction-patient is on Flomax #12 rhinovirus infection-resolved Total clinical time spent by myself addressing the patient's medical issues, reviewing all of his data, and collaborating with the patient's care team: 35- minute Medications at Discharge Home Medications levothyroxine 125 mcg tablet 125 mcg PO DAILY THYROID 12/17/17 icosapent ethyl 1 gram capsule (Vascepa) 2 g PO BIDCM cholesterol 02/08/22 omeprazole 40 mg capsule,delayed release 40 mg PO DAILY reflux 08/02/24 baclofen 20 mg tablet 20 mg PO TID PRN musle spasms 08/07/24 OXYGEN - Supplemental ([facility] INFORMATIONAL USE ONLY) 4 l NASAL .COMPLEX Hypoxia 02/23/25 metformin 500 mg tablet 500 mg PO BID diabetes 03/16/25 nitrofurantoin macrocrystal 50 mg capsule 50 mg PO QHS UTI prevention 03/16/25 apixaban 5 mg tablet (Eliquis) 5 mg PO BID blood thinner 03/20/25 Hospital Course Operations None Procedures None Summary of Care Provided Minutes Spent on Discharge: 31 Hospital Course: This 69-year-old white male was seen in the emergency room at [facility] with a chief complaint of altered mental status and low pulse ox at home. Workup in the emergency room showed a normal white blood cell count, hemoglobin was 11.5, chemistry profile was unremarkable. Urinalysis showed over 100 white blood cells, 50-100 RBCs, and +3 bacteria. Arterial blood gas was obtained, pH was 7.22, pCO2 was 85, pO2 was 88-this was on BiPAP at a rate of 14 and 100% oxygen. Chest x-ray showed cardiomegaly with vascular congestion, there was bibasilar consolidation and/or atelectasis. Patient was intubated in the emergency room and was transferred to ICU for further care, he was seen by critical care and was eventually extubated, he was treated with antibiotics for possible pneumonia, COPD exacerbation, was extubated, and was ultimately transferred to PCU for further care. Patient did test positive for rhinovirus. Patient had a rise in his creatinine and was seen by nephrology. He was seen by PT and OT and an attempt was made to have the patient go to an extended care facility for skilled care, his insurance however would not pay for this because he had a long history of paraplegia. Patient's ultimately decided to have the patient seen by hospice, hospice met with the patient and the and they decided to consent to transfer the patient to inpatient hospice in [place]. On 03/29/2025, patient was seen and examined:alert, no apparent distress and well nourished General Appearance: cooperative, well kempt and well developed Orientation / Consciousness: awake, oriented to person and oriented to place HEENT normocephalic, head/scalp atraumatic and moist oral mucous membranes Eyes PERRL, EOMs intact bilaterally and conjunctivae normal Neck supple, no JVD, thyroid normal and no carotid bruits General: trachea midline Resp normal respiratory effort, no retractions, no use of accessory muscles and clear to auscultation bilaterally Auscultation: Negative for rales, rhonchi or wheezes Cardio regular rate, regular rhythm, S1 normal heart sound, S2 normal heart sound, no murmurs, no rub and no gallops GI normal to inspection, nondistended, normoactive bowel sounds, soft to palpation, non-tender and non-distended Extremity Extremity Narrative: Patient has generalized atrophy of his lower extremities Skin no rashes or lesions noted General Skin Exam: no breakdown Neuro CN's II-XII intact bilaterally Neuro Narrative: Patient is paraplegic Sensorium / Orientation: awake, alert, oriented to person and oriented to place Speech: speech normal Psych affect normal [facility]25 in stable condition Weight / BMI Weight Weight: 110.8 kg Body Mass Index (BMI) 39.4 ABG / Lab / Microbiology Data 03/27/25 06:00 03/27/25 06:00 Laboratory: Laboratory Results - last 24 hr 03/29/25 17:01: POC Glucose 290 H 03/29/25 22:39: POC Glucose 149 H Microbiology: Microbiology 03/16/25 22:05 Blood Culture (Wb) - Right Hand Blood Culture - Final No growth in 5 days. 03/16/25 22:09 Blood Culture (Wb) - Right Forearm Blood Culture - Final No growth in 5 days. 03/16/25 20:22 Sputum, Tracheal Aspirate Gram Stain - Final 03/16/25 20:22 Sputum, Tracheal Aspirate Respiratory Culture - Final 03/17/25 03:50 Mucosa - Nasopharyngeal Respiratory Panel (PCR) - Final Rhinovirus 03/17/25 03:50 Nasal Secretion MRSA (PCR) - Final Meth. resistant Staph. aureus 03/16/25 20:25 Mucosa - Nasopharyngeal SARS-CoV-2, Influenza & RSV (PCR) - Final D/C Instructions DC O2, CPAP, BIPAP Needs Home O2 Discharge instructions: No DC home with Oxygen: No Meaningful Use Info Meaningful Use Meaningful Use Diagnoses (Choose all that apply): None applicable Discharge Plan Admission Admit Date/Time: 03/16/25 22:13 Primary Reason for Your Visit: hypercapnic resp. failure Attending Provider: Montana Cardenas Primary Care Provider: Brian Zimmerman Consulting Providers: Orlando Almeida; Keeley Donnelly; Jg Elizabeth; Montana Cardenas; Vanessa Dorado Discharge Orders/Prescriptions Prescriptions: No Action levothyroxine 125 MCG tablet 125 mcg PO DAILY Patient Comments: 1 extra pill on Sundays icosapent ethyl [Vascepa] 1 gram Capsule 2 g PO BIDCM baclofen 20 mg tablet 20 mg PO TID PRN (Reason: musle spasms) metformin 500 mg tablet 500 mg PO BID nitrofurantoin macrocrystal 50 mg capsule 50 mg PO QHS Eliquis 5 mg Tablet 5 mg PO BID Taper: Apixaban VTE Treatment 10 mg TWICE A DAY for 2 Days and 0 Hour 5 mg TWICE A DAY for 180 Days and 0 Hour omeprazole 40 mg capsule,delayed release(DR/EC) 40 mg PO DAILY OXYGEN - Supplemental ([facility] INFORMATIONAL USE ONLY) 4 l NASAL .COMPLEX Patient Comments: per , pt wears 4 lpm NC continuously at home, unknown DME Rx Instructions: 4 L NASALLY continuously; Referrals / Follow Up: Brian Zimmerman MD [Primary Care Provider, Medical] Disposition Disposition (needs filled in before D/C Order can be placed): Hospice in Medical Facility Charges/Coding Visit Charges Inpatient E&M: 91090 Disch Hosp >30min
--- NOTE | 2025-03-31 14:25 | CASEMGMT ---
Social Work SW called [facility] and left a message. ANNIE Paris
== END 2025-03-29 23:12 | disposition hospice, inpatient (51) | DRG 208 ==
LOC: ED 22:20 → ICU 22:41 → PCU 03-21 03:22
PROVIDERS: Internal Medicine; Internal Medicine Critical Care Medicine; Student in an Organized Health Care Education/Training Program; Admitting Provider Family Medicine; Emergency Provider Emergency Medicine; PCP Family Medicine; Visit Provider Internal Medicine
DX: J44.0 Chronic obstructive pulmonary disease with (acute) lower respiratory infection (principal); I26.99 Other pulmonary embolism without acute cor pulmonale; N17.0 Acute kidney failure with tubular necrosis; J96.22 Acute and chronic respiratory failure with hypercapnia; L89.313 Pressure ulcer of right buttock, stage 3; J96.21 Acute and chronic respiratory failure with hypoxia; J12.89 Other viral pneumonia; G82.20 Paraplegia, unspecified; E87.20 Acidosis, unspecified; J98.11 Atelectasis; G95.9 Disease of spinal cord, unspecified; N13.8 Other obstructive and reflux uropathy; E11.65 Type 2 diabetes mellitus with hyperglycemia; J44.1 Chronic obstructive pulmonary disease with (acute) exacerbation; D64.9 Anemia, unspecified; E03.9 Hypothyroidism, unspecified; Z93.3 Colostomy status; E78.00 Pure hypercholesterolemia, unspecified; K21.9 Gastro-esophageal reflux disease without esophagitis; H53.8 Other visual disturbances; Z79.84 Long term (current) use of oral hypoglycemic drugs; Z87.891 Personal history of nicotine dependence; Z79.01 Long term (current) use of anticoagulants; N40.1 Benign prostatic hyperplasia with lower urinary tract symptoms; Z79.899 Other long term (current) drug therapy; Z79.890 Hormone replacement therapy; B97.89 Other viral agents as the cause of diseases classified elsewhere; Z22.322 Carrier or suspected carrier of Methicillin resistant Staphylococcus aureus; R03.0 Elevated blood-pressure reading, without diagnosis of hypertension; R53.81 Other malaise; Z99.81 Dependence on supplemental oxygen
CPT/HCPCS: 31500; 31720; 36415; 36600; 70551; 71045; 71046; 71250; 74018; 80048; 80053; 80202; 81001; 82550; 82803; 82962; 83605; 83880; 84300; 84478; 84484; 85025; 85027; 87040; 87070; 87205; 87631; 87633; 87641; 93005; 94002; 94003; 94640; 94660; 94668; 94762; 97162; 97167; 97802; 97803; 99252; 99285; A4216; G0463